=== PATIENT | male | born 1950 | race Caucasian/White ===

== ENCOUNTER 2018-03-02 16:24 | Emergency (ER) | payer OTHER ==
--- OUTSIDE RECORDS SUMMARY | 2018-03-02 16:26 | XMS REPORT | Clinical Summary ---
:1950 Author Organization [facility] Address [address] [place] [address] Care Team Providers Name Role Phone Botello, Uli Fernandez Primary Care Provider Jeff Denis Unavailable Allergies Active Allergy Reactions Severity Noted Date Comments Aspirin Hives 06/28/2010 Aspirin (Tartrazine Only) Hives 06/30/2016 Penicillins Hives, Swelling 06/28/2010 Medications Medication Sig Dispensed Refills Start Date End Date Status acetaminophen Take 500 mg by 0 Active (TYLENOL) 500 MG mouth every 4 tablet (four) hours as needed for Pain. arformoterol Take 2 mLs (15 mcg 120 mL 0 12/21/2016 Active (BROVANA) 15 mcg/2 total) by mL nebulizer nebulization 2 solution (two) times daily. rivaroxaban Take 1 tablet (15 30 tablet 0 12/21/2016 Active (XARELTO) 15 mg Tab mg total) by mouth tablet daily with dinner. rOPINIRole (REQUIP) Take 0.5 tablets 15 tablet 0 12/21/2016 Active 2 MG tablet (1 mg total) by mouth nightly. melatonin 5 mg Tab Take 1 tablet (5 30 tablet 0 12/21/2016 Active tablet mg total) by mouth nightly. pantoprazole Take 1 tablet (40 30 tablet 0 12/21/2016 Active (PROTONIX) 40 MG mg total) by mouth tablet daily. atorvastatin Take 1 tablet (80 30 tablet 0 12/21/2016 12/21/2017 (LIPITOR) 80 MG mg total) by mouth tablet nightly. budesonide Take 2 mLs (0.5 mg 120 mL 0 12/21/2016 12/21/2017 (PULMICORT) 0.5 total) by mg/2 mL nebulizer nebulization 2 solution (two) times daily. clopidogrel Take 1 tablet (75 30 tablet 0 12/21/2016 12/21/2017 (PLAVIX) 75 mg mg total) by mouth tablet daily. divalproex Take 1 tablet (500 30 tablet 0 12/21/2016 12/21/2017 (DEPAKOTE) 500 MG mg total) by mouth EC tablet 2 (two) times daily. levETIRAcetam Take 2 tablets 120 tablet 0 12/21/2016 12/21/2017 (KEPPRA) 750 MG (1,500 mg total) tablet by mouth 2 (two) times daily. gabapentin Take 1 capsule 90 capsule 0 12/21/2016 12/21/2017 (NEURONTIN) 300 MG (300 mg total) by capsule mouth 3 (three) times daily. senna-docusate Take 2 tablets by 60 tablet 0 12/21/2016 12/21/2017 (SENOKOT S) 8.6-50 mouth nightly. mg per tablet torsemide (DEMADEX) Take 1 tablet (20 30 tablet 0 12/21/2016 12/21/2017 20 MG tablet mg total) by mouth daily. Active Problems Problem Noted Date Transient alteration of awareness 12/12/2016 Altered mental status 12/07/2016 Ptosis, left 12/07/2016 COPD (chronic obstructive pulmonary disease) 12/07/2016 S/P CABG x 3 11/28/2016 Acute pulmonary insufficiency following thoracic surgery 11/28/2016 Postoperative anemia due to acute blood loss 11/28/2016 NSTEMI (non-ST elevated myocardial infarction) 11/27/2016 Paroxysmal atrial fibrillation 11/26/2016 Pulmonary embolism 11/26/2016 Left-sided muscle weakness 10/08/2016 Muscle cramps 10/08/2016 Tension type headache 10/08/2016 CVA (cerebral vascular accident) 10/06/2016 Seizure disorder 10/06/2016 History of atrial fibrillation 10/06/2016 Chronic anticoagulation 10/06/2016 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 Last Filed Vital Signs Not on file Plan of Treatment Not on file Results Not on fileafter 03/01/2017 Insurance Payer Benefit Plan / Group Subscriber ID Type Phone Address MEDICARE MEDICARE A B xxxxxxxxxx Medicare MEDICAID [place] xxxxxxxxx Medicaid (Home) [place] [address] Advance Directives For more information, please contact:[address] [phone] Code Status Date Activated Date Inactivated Comments Full Code 12/04/2016 5:19 PM 12/04/2016 5:20 PM This code status was determined by: Patient Full Code 12/04/2016 5:17 PM 12/04/2016 5:19 PM This code status was determined by: Patient Full Code 11/27/2016 6:03 PM 12/04/2016 5:17 PM This code status was determined by: Patient Full Code 11/27/2016 2:03 AM 11/27/2016 6:03 PM This code status was determined by: Patient Full Code 10/06/2016 4:45 PM 10/10/2016 5:03 PM This code status was determined by: Patient
--- OUTSIDE RECORDS SUMMARY | 2018-03-02 16:29 | XMS REPORT ---
:1950 Author Organization [facility] Address [address] [place] [address] Care Team Providers Name Role Phone MIKI NICHOLS Unavailable Unavailable CLARY BRAY Unavailable Unavailable AUGUSTIN DC Unavailable Unavailable MAXIMILIANO RUSSELL Unavailable Unavailable AUGUSTIN GUAMAN Unavailable Unavailable HENRY BULL Unavailable Unavailable Problems This patient has no known problems. Allergies, Adverse Reactions, Alerts This patient has no known allergies or adverse reactions. Medications This patient has no known medications. Results Test Description Test Time Test Comments Text Results Atomic Results Result Comments B-TYPE NATRIURETIC FACTOR (BNP) 2016-12-21 05:56:00 Test Item Value Reference Range Comments B-TYPE NATRIURETIC PEPTIDE (BEAKER) (test kagz=497) 136 pg/mL 0-100 COMPREHENSIVE METABOLIC [id number] 05:53:00 Test Item Value Reference Range Comments TOTAL PROTEIN (BEAKER) 6.7 gm/dL 6.0-8.3 (test keri=237) ALBUMIN (BEAKER) (test 3.1 g/dL 3.5-5.0 wbgi=6852) ALKALINE PHOSPHATASE 116 U/L 40-150 (BEAKER) (test lora=482) BILIRUBIN TOTAL (BEAKER) < mg/dL 0.2-1.2 (test ywkp=738) SODIUM (BEAKER) (test 141 meq/L 136-145 zvwy=296) POTASSIUM (BEAKER) (test 4.0 meq/L 3.5-5.1 lqnc=449) CHLORIDE (BEAKER) (test 107 meq/L 98-107 axcc=151) CO2 (BEAKER) (test 25 meq/L 22-29 erka=348) BLOOD UREA NITROGEN 9 mg/dL 7-21 (BEAKER) (test mreo=815) CREATININE (BEAKER) (test 0.58 mg/dL 0.57-1.25 fjeq=386) GLUCOSE RANDOM (BEAKER) 94 mg/dL 70-105 (test uorn=103) CALCIUM (BEAKER) (test 8.7 mg/dL 8.4-10.2 xkrt=863) AST (SGOT) (BEAKER) (test 67 U/L 5-34 xpbq=127) ALT (SGPT) (BEAKER) (test 88 U/L 6-55 ayps=329) EGFR (BEAKER) (test 139 mL/min/1.73 sq ESTIMATED GFR IS NOT ylng=5035) m ACCURATE CREATININE CLEARANCE IN PREDICTING GLOMERULAR FILTRATION RATE. ESTIMATED GFR IS NOT APPLICABLE FOR DIALYSIS PATIENTS. POCT-GLUCOSE [id number] 16:33:00 Test Item Value Reference Range Comments POC-GLUCOSE METER (BEAKER) 116 mg/dL 70-110 TESTED AT [address] (test tikg=3861) [place] [address] POCT-GLUCOSE [id number] 11:08:00 Test Item Value Reference Range Comments POC-GLUCOSE METER (BEAKER) 133 mg/dL 70-110 TESTED AT [address] (test sfaj=9246) [place] [address] POCT-GLUCOSE [id number] 06:11:00 Test Item Value Reference Range Comments POC-GLUCOSE METER (BEAKER) 105 mg/dL 70-110 TESTED AT [address] (test xqmk=9981) [place] [address] POCT-GLUCOSE [id number] 20:28:00 Test Item Value Reference Range Comments POC-GLUCOSE METER (BEAKER) 124 mg/dL 70-110 TESTED AT [address] (test eujs=8938) [place] [address] POCT-GLUCOSE [id number] 16:46:00 Test Item Value Reference Range Comments POC-GLUCOSE METER (BEAKER) 113 mg/dL 70-110 TESTED AT [address] (test plbs=2828) [place] [address] POCT-GLUCOSE [id number] 11:46:00 Test Item Value Reference Range Comments POC-GLUCOSE METER (BEAKER) 113 mg/dL 70-110 TESTED AT [address] (test xwdd=2752) [place] [address] URINE [id number] 09:54:00 Test Item Value Reference Range Comments CULTURE (BEAKER) (test KLEBSIELLA PNEUMONIAE >100,000 col/mL dnbn=0074) Klebsiella pneumoniae Amikacin (test code=1) Ampicillin + Sulbactam (test code=6) Aztreonam (test code=32) Cefepime (test code=51) Cefoxitin (test code=68) Ceftazidime (test code=27) Ceftriaxone (test code=52) Ertapenem (test code=38) Gentamicin (test code=18) Levofloxacin (test code=22) Meropenem (test code=34) Nitrofurantoin (test code=23) Piperacillin + Tazobactam (test code=29) Tetracycline (test code=2) Tobramycin (test code=25) Trimethoprim + Sulfamethoxazole (test code=47) POCT-GLUCOSE [id number] 06:46:00 Test Item Value Reference Range Comments POC-GLUCOSE METER (BEAKER) 111 mg/dL 70-110 TESTED AT [address] (test pohq=0468) [place] [id number] POCT-GLUCOSE [id number] 20:48:00 Test Item Value Reference Range Comments POC-GLUCOSE METER (BEAKER) 128 mg/dL 70-110 TESTED AT [address] (test rodl=3514) [place] [id number] POCT-GLUCOSE [id number] 16:00:00 Test Item Value Reference Range Comments POC-GLUCOSE METER (BEAKER) 127 mg/dL 70-110 TESTED AT [address] (test yifl=2666) [place] [id number] POCT-GLUCOSE [id number] 11:16:00 Test Item Value Reference Range Comments POC-GLUCOSE METER (BEAKER) 273 mg/dL 70-110 TESTED AT [address] (test lrsf=0234) [place] [id number] COMPREHENSIVE METABOLIC [id number] 06:44:00 Test Item Value Reference Range Comments TOTAL PROTEIN (BEAKER) 6.4 gm/dL 6.0-8.3 (test bwci=658) ALBUMIN (BEAKER) (test 2.9 g/dL 3.5-5.0 mfvy=0651) ALKALINE PHOSPHATASE 109 U/L 40-150 (BEAKER) (test ordg=376) BILIRUBIN TOTAL (BEAKER) < mg/dL 0.2-1.2 (test zlyr=057) SODIUM (BEAKER) (test 142 meq/L 136-145 ugwp=623) POTASSIUM (BEAKER) (test 4.1 meq/L 3.5-5.1 uisr=303) CHLORIDE (BEAKER) (test 107 meq/L 98-107 cgec=216) CO2 (BEAKER) (test 26 meq/L 22-29 zlow=590) BLOOD UREA NITROGEN 7 mg/dL 7-21 (BEAKER) (test gqzt=474) CREATININE (BEAKER) (test 0.56 mg/dL 0.57-1.25 riiq=009) GLUCOSE RANDOM (BEAKER) 103 mg/dL 70-105 (test ujup=533) CALCIUM (BEAKER) (test 8.7 mg/dL 8.4-10.2 ghfv=962) AST (SGOT) (BEAKER) (test 42 U/L 5-34 ottq=265) ALT (SGPT) (BEAKER) (test 32 U/L 6-55 inzr=559) EGFR (BEAKER) (test 145 mL/min/1.73 sq ESTIMATED GFR IS NOT qpat=2639) m ACCURATE CREATININE CLEARANCE IN PREDICTING GLOMERULAR FILTRATION RATE. ESTIMATED GFR IS NOT APPLICABLE FOR DIALYSIS PATIENTS. [id number] 06:27:00 Test Item Value Reference Range Comments PARTIAL THROMBOPLASTIN TIME (BEAKER) (test 38.5 seconds 22.5-36.0 mpak=988) PROTHROMBIN [id number] 06:26:00 Test Item Value Reference Range Comments PROTIME (BEAKER) (test rlyp=510) 16.3 seconds 11.7-14.7 INR (BEAKER) (test hegs=344) 1.3 <=5.9 RECOMMENDED COUMADIN/WARFARIN INR THERAPY RANGESSTANDARD DOSE: 2.0 - 3.0 Includes: PROPHYLAXIS forvenous thrombosis, systemic embolization; TREATMENT for venous thrombosis and/or pulmonary embolus.HIGH RISK: Target INR is 2.5-3.5 for patients with mechanical heart valves.CBC W/PLT COUNT & AUTO [id number] 06:25:00 Test Item Value Reference Range Comments WHITE BLOOD CELL COUNT (BEAKER) (test kgzz=132) 7.1 K/ L 3.5-10.5 RED BLOOD CELL COUNT (BEAKER) (test bfir=816) 2.90 M/ L 4.63-6.08 HEMOGLOBIN (BEAKER) (test pscu=665) 9.1 GM/DL 13.7-17.5 HEMATOCRIT (BEAKER) (test tsgh=149) 28.9 % 40.1-51.0 MEAN CORPUSCULAR VOLUME (BEAKER) (test seah=165) 99.7 fL 79.0-92.2 MEAN CORPUSCULAR HEMOGLOBIN (BEAKER) (test 31.4 pg 25.7-32.2 gcdz=460) MEAN CORPUSCULAR HEMOGLOBIN CONC (BEAKER) (test 31.5 GM/DL 32.3-36.5 pfue=613) RED CELL DISTRIBUTION WIDTH (BEAKER) (test 16.4 % 11.6-14.4 yvhm=050) PLATELET COUNT (BEAKER) (test erhk=058) 402 K/CU MM 150-450 MEAN PLATELET VOLUME (BEAKER) (test xwad=752) 9.2 fL 9.4-12.4 NUCLEATED RED BLOOD CELLS (BEAKER) (test 0 /100 WBC 0-0 ufzd=792) NEUTROPHILS RELATIVE PERCENT (BEAKER) (test 61 % kjsh=701) LYMPHOCYTES RELATIVE PERCENT (BEAKER) (test 21 % utgn=257) MONOCYTES RELATIVE PERCENT (BEAKER) (test 16 % kqob=188) EOSINOPHILS RELATIVE PERCENT (BEAKER) (test 2 % rlsm=447) BASOPHILS RELATIVE PERCENT (BEAKER) (test 0 % gepz=781) NEUTROPHILS ABSOLUTE COUNT (BEAKER) (test 4.30 K/ L 1.78-5.38 nyud=704) LYMPHOCYTES ABSOLUTE COUNT (BEAKER) (test 1.49 K/ L 1.32-3.57 bxmr=178) MONOCYTES ABSOLUTE COUNT (BEAKER) (test 1.10 K/ L 0.30-0.82 pvab=285) EOSINOPHILS ABSOLUTE COUNT (BEAKER) (test 0.15 K/ L 0.04-0.54 osqe=662) BASOPHILS ABSOLUTE COUNT (BEAKER) (test 0.02 K/ L 0.01-0.08 xeji=314) IMMATURE GRANULOCYTES-RELATIVE PERCENT (BEAKER) 0 % 0-1 (test ooqt=7862) POCT-GLUCOSE [id number] 06:22:00 Test Item Value Reference Range Comments POC-GLUCOSE METER (BEAKER) 131 mg/dL 70-110 TESTED AT [address] (test qyhs=8475) [place] [id number] URINALYSIS W/ [id number] 20:35:00 Test Item Value Reference Range Comments COLOR (BEAKER) (test ucgg=024) Yellow CLARITY (BEAKER) (test ttmm=487) Clear SPECIFIC GRAVITY UA (BEAKER) (test 1.006 1.001-1.035 zwst=386) PH UA (BEAKER) (test vfns=139) 6.5 5.0-8.0 PROTEIN UA (BEAKER) (test amwo=478) Negative Negative GLUCOSE UA (BEAKER) (test fver=514) Negative Negative KETONES UA (BEAKER) (test bzdt=773) Negative Negative BILIRUBIN UA (BEAKER) (test pjjg=450) Negative Negative BLOOD UA (BEAKER) (test slhu=293) Negative Negative NITRITE UA (BEAKER) (test euoh=128) Negative Negative LEUKOCYTE ESTERASE UA (BEAKER) (test Negative Negative pxmw=155) UROBILINOGEN UA (BEAKER) (test krhx=925) 0.2 mg/dL 0.2-1.0 RBC UA (BEAKER) (test zrti=198) 1 /HPF WBC UA (BEAKER) (test vbuu=114) 0 /HPF SOURCE(BEAKER) (test hbpl=8213) Urine, Clean Catch POCT-GLUCOSE [id number] 20:21:00 Test Item Value Reference Range Comments POC-GLUCOSE METER (BEAKER) 132 mg/dL 70-110 TESTED AT [address] (test rogq=7569) [place] [id number] POCT-GLUCOSE [id number] 16:17:00 Test Item Value Reference Range Comments POC-GLUCOSE METER (BEAKER) 101 mg/dL 70-110 TESTED AT [address] (test rokb=3098) [place] [id number] POCT-GLUCOSE [id number] 13:35:00 Test Item Value Reference Range Comments POC-GLUCOSE METER (BEAKER) 143 mg/dL 70-110 TESTED AT [address] (test gyof=0883) [place] [id number] BASIC METABOLIC [id number] 06:31:00 Test Item Value Reference Range Comments SODIUM (BEAKER) (test 137 meq/L 136-145 zhay=423) POTASSIUM (BEAKER) (test 4.2 meq/L 3.5-5.1 egqv=929) CHLORIDE (BEAKER) (test 104 meq/L 98-107 uyrh=666) CO2 (BEAKER) (test 26 meq/L 22-29 hzzk=568) BLOOD UREA NITROGEN 4 mg/dL 7-21 (BEAKER) (test ajic=477) CREATININE (BEAKER) (test 0.57 mg/dL 0.57-1.25 pvcv=770) GLUCOSE RANDOM (BEAKER) 97 mg/dL 70-105 (test eech=402) CALCIUM (BEAKER) (test 8.8 mg/dL 8.4-10.2 dmwz=891) EGFR (BEAKER) (test 142 mL/min/1.73 sq m ESTIMATED GFR IS NOT wpcd=7706) ACCURATE CREATININE CLEARANCE IN PREDICTING GLOMERULAR FILTRATION RATE. ESTIMATED GFR IS NOT APPLICABLE FOR DIALYSIS PATIENTS. BASIC METABOLIC [id number] 05:41:00 Test Item Value Reference Range Comments SODIUM (BEAKER) (test 141 meq/L 136-145 bffc=011) POTASSIUM (BEAKER) (test 3.9 meq/L 3.5-5.1 bnjz=467) CHLORIDE (BEAKER) (test 107 meq/L 98-107 jusb=021) CO2 (BEAKER) (test 24 meq/L 22-29 nkxj=813) BLOOD UREA NITROGEN 4 mg/dL 7-21 (BEAKER) (test mwqc=109) CREATININE (BEAKER) (test 0.59 mg/dL 0.57-1.25 yaaf=516) GLUCOSE RANDOM (BEAKER) 100 mg/dL 70-105 (test aaex=158) CALCIUM (BEAKER) (test 8.7 mg/dL 8.4-10.2 yfgy=422) EGFR (BEAKER) (test 137 mL/min/1.73 sq m ESTIMATED GFR IS NOT zznl=0874) ACCURATE CREATININE CLEARANCE IN PREDICTING GLOMERULAR FILTRATION RATE. ESTIMATED GFR IS NOT APPLICABLE FOR DIALYSIS PATIENTS. CBC (HEMOGRAM ONLY)2016-12-13 05:18:00 Test Item Value Reference Range Comments WHITE BLOOD CELL COUNT (BEAKER) (test hfad=639) 8.5 K/ L 3.5-10.5 RED BLOOD CELL COUNT (BEAKER) (test etzb=372) 2.81 M/ L 4.63-6.08 HEMOGLOBIN (BEAKER) (test btpa=300) 9.0 GM/DL 13.7-17.5 HEMATOCRIT (BEAKER) (test sdqt=991) 27.9 % 40.1-51.0 MEAN CORPUSCULAR VOLUME (BEAKER) (test pmsd=868) 99.3 fL 79.0-92.2 MEAN CORPUSCULAR HEMOGLOBIN (BEAKER) (test 32.0 pg 25.7-32.2 jjzy=942) MEAN CORPUSCULAR HEMOGLOBIN CONC (BEAKER) (test 32.3 GM/DL 32.3-36.5 cflj=726) RED CELL DISTRIBUTION WIDTH (BEAKER) (test 17.0 % 11.6-14.4 pyrb=358) PLATELET COUNT (BEAKER) (test ezag=750) 473 K/CU MM 150-450 MEAN PLATELET VOLUME (BEAKER) (test edew=217) 9.3 fL 9.4-12.4 NUCLEATED RED BLOOD CELLS (BEAKER) (test 0 /100 WBC 0-0 udtr=072) VITAMIN [id number] 06:04:00 Test Item Value Reference Range Comments VITAMIN B12 (BEAKER) (test kikj=660) 619 pg/mL 213-816 [id number] 06:04:00 Test Item Value Reference Range Comments FERRITIN (BEAKER) (test sdxe=532) 335 ng/mL 5-275 Effective 03/02/2014: Reference Range ChangeNew: Male 5-275 Previous: Male 22-322 Female 5-275 Female 10-291FOLATE, [id number] 06: 04:00 Test Item Value Reference Range Comments FOLATE (BEAKER) (test ghtj=216) 4.9 ng/mL >=7.0 Effective 03/02/2014: Folate Reference Range ChangeNew: >=7.0 Previous: & gt;=5.4BASIC METABOLIC [id number] 05:47:00 Test Item Value Reference Range Comments SODIUM (BEAKER) (test 135 meq/L 136-145 gesr=639) POTASSIUM (BEAKER) (test 4.1 meq/L 3.5-5.1 lueo=377) CHLORIDE (BEAKER) (test 103 meq/L 98-107 kpcy=555) CO2 (BEAKER) (test 24 meq/L 22-29 xtif=805) BLOOD UREA NITROGEN 5 mg/dL 7-21 (BEAKER) (test nybs=352) CREATININE (BEAKER) (test 0.56 mg/dL 0.57-1.25 fyeh=067) GLUCOSE RANDOM (BEAKER) 98 mg/dL 70-105 (test hlkf=715) CALCIUM (BEAKER) (test 8.5 mg/dL 8.4-10.2 iqmb=574) EGFR (BEAKER) (test 145 mL/min/1.73 sq m ESTIMATED GFR IS NOT cvwe=6145) ACCURATE CREATININE CLEARANCE IN PREDICTING GLOMERULAR FILTRATION RATE. ESTIMATED GFR IS NOT APPLICABLE FOR DIALYSIS PATIENTS. IRON, TIBC, % SAT. (WITHOUT FERRITIN)2016-12-12 05:29:00 Test Item Value Reference Range Comments IRON (BEAKER) (test gfic=088) 25 ug/dL 40-160 TOTAL IRON BINDING CAPACITY (BEAKER) (test 238 ug/dL 250-450 trfz=210) IRON % SATURATION (2) (BEAKER) (test deev=4763) 11 % 20-55 CBC (HEMOGRAM ONLY)2016-12-12 05:09:00 Test Item Value Reference Range Comments WHITE BLOOD CELL COUNT (BEAKER) (test ufjq=846) 8.6 K/ L 3.5-10.5 RED BLOOD CELL COUNT (BEAKER) (test bbjs=134) 2.74 M/ L 4.63-6.08 HEMOGLOBIN (BEAKER) (test bxeb=594) 8.9 GM/DL 13.7-17.5 HEMATOCRIT (BEAKER) (test ibrs=805) 27.3 % 40.1-51.0 MEAN CORPUSCULAR VOLUME (BEAKER) (test gnsj=747) 99.6 fL 79.0-92.2 MEAN CORPUSCULAR HEMOGLOBIN (BEAKER) (test 32.5 pg 25.7-32.2 rfji=517) MEAN CORPUSCULAR HEMOGLOBIN CONC (BEAKER) (test 32.6 GM/DL 32.3-36.5 apha=743) RED CELL DISTRIBUTION WIDTH (BEAKER) (test 17.2 % 11.6-14.4 nrep=385) PLATELET COUNT (BEAKER) (test yndl=516) 400 K/CU MM 150-450 MEAN PLATELET VOLUME (BEAKER) (test iiai=393) 9.2 fL 9.4-12.4 NUCLEATED RED BLOOD CELLS (BEAKER) (test 0 /100 WBC 0-0 vvzx=334) BASIC METABOLIC [id number] 05:53:00 Test Item Value Reference Range Comments SODIUM (BEAKER) (test 138 meq/L 136-145 ghio=781) POTASSIUM (BEAKER) (test 4.0 meq/L 3.5-5.1 Specimen slightly qbjv=169) hemolyzed CHLORIDE (BEAKER) (test 105 meq/L 98-107 sxyk=214) CO2 (BEAKER) (test 24 meq/L 22-29 sevv=131) BLOOD UREA NITROGEN 4 mg/dL 7-21 (BEAKER) (test qcuw=527) CREATININE (BEAKER) (test 0.56 mg/dL 0.57-1.25 Specimen slightly xotf=296) hemolyzed GLUCOSE RANDOM (BEAKER) 97 mg/dL 70-105 (test kdib=296) CALCIUM (BEAKER) (test 8.4 mg/dL 8.4-10.2 dvkg=319) EGFR (BEAKER) (test 145 mL/min/1.73 sq m ESTIMATED GFR IS NOT tpqv=4140) ACCURATE CREATININE CLEARANCE IN PREDICTING GLOMERULAR FILTRATION RATE. ESTIMATED GFR IS NOT APPLICABLE FOR DIALYSIS PATIENTS. CREATINE KINASE (CK)2016-12-11 05:53:00 Test Item Value Reference Range Comments CREATINE KINASE TOTAL (BEAKER) (test ztme=394) 29 U/L 29-200 CBC (HEMOGRAM ONLY)2016-12-11 05:34:00 Test Item Value Reference Range Comments WHITE BLOOD CELL COUNT (BEAKER) (test moes=664) 8.0 K/ L 3.5-10.5 RED BLOOD CELL COUNT (BEAKER) (test mjql=533) 2.70 M/ L 4.63-6.08 HEMOGLOBIN (BEAKER) (test dknm=010) 8.6 GM/DL 13.7-17.5 HEMATOCRIT (BEAKER) (test niir=432) 27.0 % 40.1-51.0 MEAN CORPUSCULAR VOLUME (BEAKER) (test ohxq=079) 100.0 fL 79.0-92.2 MEAN CORPUSCULAR HEMOGLOBIN (BEAKER) (test 31.9 pg 25.7-32.2 lsbr=736) MEAN CORPUSCULAR HEMOGLOBIN CONC (BEAKER) (test 31.9 GM/DL 32.3-36.5 twnp=293) RED CELL DISTRIBUTION WIDTH (BEAKER) (test 17.2 % 11.6-14.4 qzde=811) PLATELET COUNT (BEAKER) (test cvem=453) 406 K/CU MM 150-450 MEAN PLATELET VOLUME (BEAKER) (test mrdo=225) 9.4 fL 9.4-12.4 NUCLEATED RED BLOOD CELLS (BEAKER) (test 0 /100 WBC 0-0 tmvq=326) [id number] 22:53:00 Test Item Value Reference Range Comments ACTIVATED CLOTTING TIME 153 sec TESTED AT [place] [id number] [facility] (BEAKER) (test ielu=072) [place] [address] [id number] 22:35:00 Test Item Value Reference Range Comments ACTIVATED CLOTTING TIME 202 sec TESTED AT [address] (BEAKER) (test drwl=428) [place] [address] [id number] 22:04:00 Test Item Value Reference Range Comments PARTIAL THROMBOPLASTIN TIME (BEAKER) (test 45.2 seconds 22.5-36.0 tygn=851) Prior to initiating heparinCBC (HEMOGRAM ONLY)2016-12-10 21:56:00 Test Item Value Reference Range Comments WHITE BLOOD CELL COUNT (BEAKER) (test odpr=492) 9.5 K/ L 3.5-10.5 RED BLOOD CELL COUNT (BEAKER) (test zzsw=616) 2.79 M/ L 4.63-6.08 HEMOGLOBIN (BEAKER) (test rdil=687) 9.0 GM/DL 13.7-17.5 HEMATOCRIT (BEAKER) (test euzs=781) 27.6 % 40.1-51.0 MEAN CORPUSCULAR VOLUME (BEAKER) (test palx=103) 98.9 fL 79.0-92.2 MEAN CORPUSCULAR HEMOGLOBIN (BEAKER) (test 32.3 pg 25.7-32.2 ftoj=052) MEAN CORPUSCULAR HEMOGLOBIN CONC (BEAKER) (test 32.6 GM/DL 32.3-36.5 ttfb=873) RED CELL DISTRIBUTION WIDTH (BEAKER) (test 17.3 % 11.6-14.4 ipoa=498) PLATELET COUNT (BEAKER) (test kaxp=531) 429 K/CU MM 150-450 MEAN PLATELET VOLUME (BEAKER) (test guxo=883) 9.8 fL 9.4-12.4 NUCLEATED RED BLOOD CELLS (BEAKER) (test 0 /100 WBC 0-0 uevn=201) BASIC METABOLIC [id number] 08:43:00 Test Item Value Reference Range Comments SODIUM (BEAKER) (test 139 meq/L 136-145 oinm=162) POTASSIUM (BEAKER) (test 4.0 meq/L 3.5-5.1 iucd=210) CHLORIDE (BEAKER) (test 104 meq/L 98-107 ipib=487) CO2 (BEAKER) (test 24 meq/L 22-29 hovj=999) BLOOD UREA NITROGEN 4 mg/dL 7-21 (BEAKER) (test aikw=027) CREATININE (BEAKER) (test 0.58 mg/dL 0.57-1.25 irff=154) GLUCOSE RANDOM (BEAKER) 95 mg/dL 70-105 (test uzlw=472) CALCIUM (BEAKER) (test 8.7 mg/dL 8.4-10.2 xaqa=460) EGFR (BEAKER) (test 139 mL/min/1.73 sq m ESTIMATED GFR IS NOT lrrp=3662) ACCURATE CREATININE CLEARANCE IN PREDICTING GLOMERULAR FILTRATION RATE. ESTIMATED GFR IS NOT APPLICABLE FOR DIALYSIS PATIENTS. CBC (HEMOGRAM ONLY)2016-12-10 08:03:00 Test Item Value Reference Range Comments WHITE BLOOD CELL COUNT (BEAKER) (test fxjt=005) 8.7 K/ L 3.5-10.5 RED BLOOD CELL COUNT (BEAKER) (test vfco=936) 2.80 M/ L 4.63-6.08 HEMOGLOBIN (BEAKER) (test lzxp=865) 9.2 GM/DL 13.7-17.5 HEMATOCRIT (BEAKER) (test mhvi=760) 27.7 % 40.1-51.0 MEAN CORPUSCULAR VOLUME (BEAKER) (test aqhi=824) 98.9 fL 79.0-92.2 MEAN CORPUSCULAR HEMOGLOBIN (BEAKER) (test 32.9 pg 25.7-32.2 qljv=594) MEAN CORPUSCULAR HEMOGLOBIN CONC (BEAKER) (test 33.2 GM/DL 32.3-36.5 edjv=570) RED CELL DISTRIBUTION WIDTH (BEAKER) (test 17.2 % 11.6-14.4 dztb=015) PLATELET COUNT (BEAKER) (test fhhl=530) 509 K/CU MM 150-450 MEAN PLATELET VOLUME (BEAKER) (test awmi=057) 9.3 fL 9.4-12.4 NUCLEATED RED BLOOD CELLS (BEAKER) (test 0 /100 WBC 0-0 hcay=329) BASIC METABOLIC [id number] 06:44:00 Test Item Value Reference Range Comments SODIUM (BEAKER) (test 137 meq/L 136-145 elya=356) POTASSIUM (BEAKER) (test 4.6 meq/L 3.5-5.1 Specimen slightly ezhf=950) hemolyzed CHLORIDE (BEAKER) (test 106 meq/L 98-107 xcvl=439) CO2 (BEAKER) (test 18 meq/L 22-29 hxdy=190) BLOOD UREA NITROGEN 5 mg/dL 7-21 (BEAKER) (test fhhd=078) CREATININE (BEAKER) (test 0.60 mg/dL 0.57-1.25 Specimen slightly orun=486) hemolyzed GLUCOSE RANDOM (BEAKER) 86 mg/dL 70-105 (test hgvu=136) CALCIUM (BEAKER) (test 8.6 mg/dL 8.4-10.2 emqj=030) EGFR (BEAKER) (test 134 mL/min/1.73 sq m ESTIMATED GFR IS NOT qcto=6519) ACCURATE CREATININE CLEARANCE IN PREDICTING GLOMERULAR FILTRATION RATE. ESTIMATED GFR IS NOT APPLICABLE FOR DIALYSIS PATIENTS. CBC W/PLT COUNT & AUTO [id number] 21:33:00 Test Item Value Reference Range Comments WHITE BLOOD CELL COUNT (BEAKER) (test rdnx=134) 8.3 K/ L 3.5-10.5 RED BLOOD CELL COUNT (BEAKER) (test gspe=178) 3.00 M/ L 4.63-6.08 HEMOGLOBIN (BEAKER) (test anvg=379) 9.6 GM/DL 13.7-17.5 HEMATOCRIT (BEAKER) (test yern=118) 29.5 % 40.1-51.0 MEAN CORPUSCULAR VOLUME (BEAKER) (test yrcx=557) 98.3 fL 79.0-92.2 MEAN CORPUSCULAR HEMOGLOBIN (BEAKER) (test 32.0 pg 25.7-32.2 tlmn=660) MEAN CORPUSCULAR HEMOGLOBIN CONC (BEAKER) (test 32.5 GM/DL 32.3-36.5 iyvs=396) RED CELL DISTRIBUTION WIDTH (BEAKER) (test 17.3 % 11.6-14.4 xzhx=469) PLATELET COUNT (BEAKER) (test fvcd=097) 434 K/CU MM 150-450 MEAN PLATELET VOLUME (BEAKER) (test fuwq=217) 9.4 fL 9.4-12.4 NUCLEATED RED BLOOD CELLS (BEAKER) (test 0 /100 WBC 0-0 rajn=232) NEUTROPHILS RELATIVE PERCENT (BEAKER) (test 54 % bkmk=072) LYMPHOCYTES RELATIVE PERCENT (BEAKER) (test 27 % kkoc=695) MONOCYTES RELATIVE PERCENT (BEAKER) (test 17 % kyjz=773) EOSINOPHILS RELATIVE PERCENT (BEAKER) (test 2 % dqri=991) BASOPHILS RELATIVE PERCENT (BEAKER) (test 0 % ivft=999) NEUTROPHILS ABSOLUTE COUNT (BEAKER) (test 4.46 K/ L 1.78-5.38 fckd=194) LYMPHOCYTES ABSOLUTE COUNT (BEAKER) (test 2.24 K/ L 1.32-3.57 hdoo=862) MONOCYTES ABSOLUTE COUNT (BEAKER) (test 1.38 K/ L 0.30-0.82 nzti=768) EOSINOPHILS ABSOLUTE COUNT (BEAKER) (test 0.17 K/ L 0.04-0.54 dzva=694) BASOPHILS ABSOLUTE COUNT (BEAKER) (test 0.02 K/ L 0.01-0.08 kfgo=058) IMMATURE GRANULOCYTES-RELATIVE PERCENT (BEAKER) 1 % 0-1 (test oyqn=1661) [id number] 07:21:00 Test Item Value Reference Range Comments PHOSPHORUS (BEAKER) (test ieyn=487) 3.6 mg/dL 2.3-4.7 [id number] 07:21:00 Test Item Value Reference Range Comments MAGNESIUM (BEAKER) (test ykgr=711) 1.9 mg/dL 1.6-2.6 COMPREHENSIVE METABOLIC [id number] 07:21:00 Test Item Value Reference Range Comments TOTAL PROTEIN (BEAKER) 6.2 gm/dL 6.0-8.3 (test hlpu=212) ALBUMIN (BEAKER) (test 3.0 g/dL 3.5-5.0 icfw=2702) ALKALINE PHOSPHATASE 95 U/L 40-150 (BEAKER) (test pvuw=266) BILIRUBIN TOTAL (BEAKER) 0.3 mg/dL 0.2-1.2 (test mxod=016) SODIUM (BEAKER) (test 137 meq/L 136-145 rmtt=934) POTASSIUM (BEAKER) (test 3.9 meq/L 3.5-5.1 waas=818) CHLORIDE (BEAKER) (test 105 meq/L 98-107 puhq=435) CO2 (BEAKER) (test 23 meq/L 22-29 zkpe=527) BLOOD UREA NITROGEN 6 mg/dL 7-21 (BEAKER) (test njzx=605) CREATININE (BEAKER) (test 0.57 mg/dL 0.57-1.25 olhb=841) GLUCOSE RANDOM (BEAKER) 89 mg/dL 70-105 (test ajtj=135) CALCIUM (BEAKER) (test 8.3 mg/dL 8.4-10.2 afwt=018) AST (SGOT) (BEAKER) (test 25 U/L 5-34 skfl=191) ALT (SGPT) (BEAKER) (test 14 U/L 6-55 ldrq=803) EGFR (BEAKER) (test 142 mL/min/1.73 sq ESTIMATED GFR IS NOT idlh=1738) m ACCURATE CREATININE CLEARANCE IN PREDICTING GLOMERULAR FILTRATION RATE. ESTIMATED GFR IS NOT APPLICABLE FOR DIALYSIS PATIENTS. CBC (HEMOGRAM ONLY)2016-12-08 06:35:00 Test Item Value Reference Range Comments WHITE BLOOD CELL COUNT (BEAKER) (test jyrb=176) 7.9 K/ L 3.5-10.5 RED BLOOD CELL COUNT (BEAKER) (test fdct=856) 2.92 M/ L 4.63-6.08 HEMOGLOBIN (BEAKER) (test ogan=828) 9.2 GM/DL 13.7-17.5 HEMATOCRIT (BEAKER) (test ixvs=862) 28.4 % 40.1-51.0 MEAN CORPUSCULAR VOLUME (BEAKER) (test wlkz=918) 97.3 fL 79.0-92.2 MEAN CORPUSCULAR HEMOGLOBIN (BEAKER) (test 31.5 pg 25.7-32.2 pizn=895) MEAN CORPUSCULAR HEMOGLOBIN CONC (BEAKER) (test 32.4 GM/DL 32.3-36.5 ijpx=796) RED CELL DISTRIBUTION WIDTH (BEAKER) (test 17.0 % 11.6-14.4 yjzg=504) PLATELET COUNT (BEAKER) (test zdmu=154) 415 K/CU MM 150-450 MEAN PLATELET VOLUME (BEAKER) (test vxeu=390) 9.3 fL 9.4-12.4 NUCLEATED RED BLOOD CELLS (BEAKER) (test 0 /100 WBC 0-0 gwny=343) CBC (HEMOGRAM ONLY)2016-12-07 06:08:00 Test Item Value Reference Range Comments WHITE BLOOD CELL COUNT (BEAKER) (test khxr=614) 7.7 K/ L 3.5-10.5 RED BLOOD CELL COUNT (BEAKER) (test dgkz=657) 2.85 M/ L 4.63-6.08 HEMOGLOBIN (BEAKER) (test engt=075) 9.0 GM/DL 13.7-17.5 HEMATOCRIT (BEAKER) (test qhqm=981) 27.8 % 40.1-51.0 MEAN CORPUSCULAR VOLUME (BEAKER) (test orcu=995) 97.5 fL 79.0-92.2 MEAN CORPUSCULAR HEMOGLOBIN (BEAKER) (test 31.6 pg 25.7-32.2 szes=002) MEAN CORPUSCULAR HEMOGLOBIN CONC (BEAKER) (test 32.4 GM/DL 32.3-36.5 ibbk=929) RED CELL DISTRIBUTION WIDTH (BEAKER) (test 16.5 % 11.6-14.4 rnpu=863) PLATELET COUNT (BEAKER) (test syge=945) 399 K/CU MM 150-450 MEAN PLATELET VOLUME (BEAKER) (test fkiv=320) 9.5 fL 9.4-12.4 NUCLEATED RED BLOOD CELLS (BEAKER) (test 0 /100 WBC 0-0 qchu=208) PHENYTOIN LEVEL, TOTAL AND [id number] 01:14:00 Test Item Value Reference Range Comments PHENYTOIN (DILANTIN) (BEAKER) (test vtec=572) 22.9 ug/mL 10.0-20.0 PHENYTOIN FREE (BEAKER) (test lrjq=372) 3.51 mcg/ml 1.00-2.00 VALPROIC ACID LEVEL, [id number] 20:49:00 Test Item Value Reference Range Comments VALPROIC ACID TOTAL (BEAKER) (test iwmv=107) 33 ug/mL 50-100 Therapeutic range for some clinical conditions may be >100 ug/mLPOCT-GLUCOSE [id number] 17:10:00 Test Item Value Reference Range Comments POC-GLUCOSE METER (BEAKER) 108 mg/dL 70-110 [facility]ED [facility] [facility] [address] [facility] (test akkb=0215) [facility] [address] PHENYTOIN LEVEL, [id number] 12:29:00 Test Item Value Reference Range Comments PHENYTOIN (DILANTIN) (BEAKER) (test aftt=050) 16.3 ug/mL 10.0-20.0 CREATINE KINASE (CK), TOTAL AND [id number] 12:26:00 Test Item Value Reference Range Comments CREATINE KINASE TOTAL (BEAKER) (test gmzg=602) 47 U/L 29-200 CREATINE KINASE-MB (BEAKER) (test tsja=406) 1.1 ng/mL 0.0-6.6 CREATINE KINASE-MB INDEX (BEAKER) (test qswv=777) 2.3 % Effective 03/02/2014: CK-MB Reference Range ChangeNew: 0.0-6.6 Previous: 0.0- 4.9CK-MB Reference Range:<6.7 Normal6.7-10.0 Borderline>10.0 AbnormalTROPONIN [id number] 12:26:00 Test Item Value Reference Range Comments TROPONIN I (BEAKER) (test xxjd=230) 0.11 ng/mL 0.00-0.03 Effective 03/02/2014: Reference Range ChangeNew: 0.00-0.03 Previous 0.00- 0.15Troponin I (TnI) levels must be interpreted in the context of the presenting symptoms and the clinical findings. Elevated TnI levels indicate myocardial damage, but are not specific for ischemic heart disease. Elevated TnI levels are seen in patients with other cardiac conditions (including myocarditis and congestive heartfailure), and slight TnI elevations occur in patients with other conditions, including sepsis, renalfailure, acidosis, acute neurological disease, and persistent tachyarrhythmia.[id number] 12:17: 00 Test Item Value Reference Range Comments MAGNESIUM (BEAKER) (test tged=686) 2.0 mg/dL 1.6-2.6 COMPREHENSIVE METABOLIC [id number] 12:17:00 Test Item Value Reference Range Comments TOTAL PROTEIN (BEAKER) 6.2 gm/dL 6.0-8.3 (test kazu=990) ALBUMIN (BEAKER) (test 3.0 g/dL 3.5-5.0 prnk=6634) ALKALINE PHOSPHATASE 101 U/L 40-150 (BEAKER) (test idgm=850) BILIRUBIN TOTAL (BEAKER) 0.3 mg/dL 0.2-1.2 (test lfpx=164) SODIUM (BEAKER) (test 140 meq/L 136-145 ukzd=013) POTASSIUM (BEAKER) (test 4.6 meq/L 3.5-5.1 oupv=586) CHLORIDE (BEAKER) (test 107 meq/L 98-107 zbek=311) CO2 (BEAKER) (test 24 meq/L 22-29 sroz=963) BLOOD UREA NITROGEN 5 mg/dL 7-21 (BEAKER) (test rcuy=015) CREATININE (BEAKER) (test 0.62 mg/dL 0.57-1.25 patr=793) GLUCOSE RANDOM (BEAKER) 111 mg/dL 70-105 (test rnhm=869) CALCIUM (BEAKER) (test 8.6 mg/dL 8.4-10.2 rxsn=754) AST (SGOT) (BEAKER) (test 23 U/L 5-34 gthe=204) ALT (SGPT) (BEAKER) (test 15 U/L 6-55 jagg=987) EGFR (BEAKER) (test 129 mL/min/1.73 sq ESTIMATED GFR IS NOT ospy=0861) m ACCURATE CREATININE CLEARANCE IN PREDICTING GLOMERULAR FILTRATION RATE. ESTIMATED GFR IS NOT APPLICABLE FOR DIALYSIS PATIENTS. CBC W/PLT COUNT & AUTO [id number] 11:55:00 Test Item Value Reference Range Comments WHITE BLOOD CELL COUNT (BEAKER) (test nlrm=553) 7.5 K/ L 3.5-10.5 RED BLOOD CELL COUNT (BEAKER) (test wivd=921) 3.01 M/ L 4.63-6.08 HEMOGLOBIN (BEAKER) (test hyyz=377) 9.5 GM/DL 13.7-17.5 HEMATOCRIT (BEAKER) (test ivli=656) 29.3 % 40.1-51.0 MEAN CORPUSCULAR VOLUME (BEAKER) (test zaum=900) 97.3 fL 79.0-92.2 MEAN CORPUSCULAR HEMOGLOBIN (BEAKER) (test 31.6 pg 25.7-32.2 jstv=868) MEAN CORPUSCULAR HEMOGLOBIN CONC (BEAKER) (test 32.4 GM/DL 32.3-36.5 lryc=531) RED CELL DISTRIBUTION WIDTH (BEAKER) (test 16.4 % 11.6-14.4 rngi=736) PLATELET COUNT (BEAKER) (test sxwu=065) 396 K/CU MM 150-450 MEAN PLATELET VOLUME (BEAKER) (test orgh=850) 9.6 fL 9.4-12.4 NUCLEATED RED BLOOD CELLS (BEAKER) (test 0 /100 WBC 0-0 djgh=355) NEUTROPHILS RELATIVE PERCENT (BEAKER) (test 65 % qkgg=521) LYMPHOCYTES RELATIVE PERCENT (BEAKER) (test 19 % kwbr=357) MONOCYTES RELATIVE PERCENT (BEAKER) (test 13 % dprr=405) EOSINOPHILS RELATIVE PERCENT (BEAKER) (test 2 % lbrm=455) BASOPHILS RELATIVE PERCENT (BEAKER) (test 0 % thpe=207) NEUTROPHILS ABSOLUTE COUNT (BEAKER) (test 4.91 K/ L 1.78-5.38 zxwf=073) LYMPHOCYTES ABSOLUTE COUNT (BEAKER) (test 1.43 K/ L 1.32-3.57 uwzi=222) MONOCYTES ABSOLUTE COUNT (BEAKER) (test 0.96 K/ L 0.30-0.82 nios=945) EOSINOPHILS ABSOLUTE COUNT (BEAKER) (test 0.11 K/ L 0.04-0.54 rfta=976) BASOPHILS ABSOLUTE COUNT (BEAKER) (test 0.02 K/ L 0.01-0.08 ayub=240) IMMATURE GRANULOCYTES-RELATIVE PERCENT (BEAKER) 1 % 0-1 (test koky=9170) URINE [id number] 11:55:00 Test Item Value Reference Range Comments CULTURE (BEAKER) (test stzy=8504) No growth BLOOD GAS, [id number] 10:28:00 Test Item Value Reference Range Comments PH ARTERIAL (BEAKER) (test xhtl=566) 7.51 7.35-7.45 PCO2 ARTERIAL (BEAKER) (test xhep=542) 32 mmHg 35-45 PO2 ARTERIAL (BEAKER) (test wxuy=757) 118 mmHg 80-90 O2 SATURATION ARTERIAL (BEAKER) (test opxc=081) 98.7 % 96.0-97.0 HCO3 ARTERIAL (BEAKER) (test ykii=244) 25 mmol/L 21-29 BASE EXCESS ARTERIAL (BEAKER) (test yzrz=878) 2.1 mmol/L -2.0-3.0 PATIENT TEMPERATURE (BEAKER) (test ymzi=2746) 36.6 C FIO2 (BEAKER) (test kbzk=3503) 32.0 % POCT-GLUCOSE [id number] 09:53:00 Test Item Value Reference Range Comments POC-GLUCOSE METER (BEAKER) 184 mg/dL 70-110 TESTED AT [address] (test xnsw=9533) [facility] [address] TROPONIN [id number] 22:44:00 Test Item Value Reference Range Comments TROPONIN I (BEAKER) (test tqff=789) 0.14 ng/mL 0.00-0.03 Effective 03/02/2014: Reference Range ChangeNew: 0.00-0.03 Previous 0.00- 0.15Troponin I (TnI) levels must be interpreted in the context of the presenting symptoms and the clinical findings. Elevated TnI levels indicate myocardial damage, but are not specific for ischemic heart disease. Elevated TnI levels are seen in patients with other cardiac conditions (including myocarditis and congestive heartfailure), and slight TnI elevations occur in patients with other conditions, including sepsis, renalfailure, acidosis, acute neurological disease, and persistent tachyarrhythmia.TROPONIN [id number] 15:17: 00 Test Item Value Reference Range Comments TROPONIN I (BEAKER) (test ariu=679) 0.14 ng/mL 0.00-0.03 Effective 03/02/2014: Reference Range ChangeNew: 0.00-0.03 Previous 0.00- 0.15Troponin I (TnI) levels must be interpreted in the context of the presenting symptoms and the clinical findings. Elevated TnI levels indicate myocardial damage, but are not specific for ischemic heart disease. Elevated TnI levels are seen in patients with other cardiac conditions (including myocarditis and congestive heartfailure), and slight TnI elevations occur in patients with other conditions, including sepsis, renalfailure, acidosis, acute neurological disease, and persistent tachyarrhythmia.CBC W/PLT COUNT & AUTO [id number] 14:44:00 Test Item Value Reference Range Comments WHITE BLOOD CELL COUNT (BEAKER) (test oyko=397) 7.7 K/ L 3.5-10.5 RED BLOOD CELL COUNT (BEAKER) (test mpdv=869) 2.98 M/ L 4.63-6.08 HEMOGLOBIN (BEAKER) (test xcui=973) 9.3 GM/DL 13.7-17.5 HEMATOCRIT (BEAKER) (test vubc=086) 28.7 % 40.1-51.0 MEAN CORPUSCULAR VOLUME (BEAKER) (test goga=587) 96.3 fL 79.0-92.2 MEAN CORPUSCULAR HEMOGLOBIN (BEAKER) (test 31.2 pg 25.7-32.2 udob=601) MEAN CORPUSCULAR HEMOGLOBIN CONC (BEAKER) (test 32.4 GM/DL 32.3-36.5 asfl=520) RED CELL DISTRIBUTION WIDTH (BEAKER) (test 15.7 % 11.6-14.4 teoq=798) PLATELET COUNT (BEAKER) (test eprh=825) 356 K/CU MM 150-450 MEAN PLATELET VOLUME (BEAKER) (test zzox=328) 10.1 fL 9.4-12.4 NUCLEATED RED BLOOD CELLS (BEAKER) (test 1 /100 WBC 0-0 ndmy=398) NEUTROPHILS RELATIVE PERCENT (BEAKER) (test 58 % ktlz=206) LYMPHOCYTES RELATIVE PERCENT (BEAKER) (test 24 % jsrk=464) MONOCYTES RELATIVE PERCENT (BEAKER) (test 16 % rdxk=891) EOSINOPHILS RELATIVE PERCENT (BEAKER) (test 1 % kaep=100) BASOPHILS RELATIVE PERCENT (BEAKER) (test 0 % bptx=457) NEUTROPHILS ABSOLUTE COUNT (BEAKER) (test 4.43 K/ L 1.78-5.38 xumi=281) LYMPHOCYTES ABSOLUTE COUNT (BEAKER) (test 1.85 K/ L 1.32-3.57 zonw=836) MONOCYTES ABSOLUTE COUNT (BEAKER) (test 1.22 K/ L 0.30-0.82 omyv=413) EOSINOPHILS ABSOLUTE COUNT (BEAKER) (test 0.11 K/ L 0.04-0.54 wwya=513) BASOPHILS ABSOLUTE COUNT (BEAKER) (test 0.02 K/ L 0.01-0.08 pceu=638) IMMATURE GRANULOCYTES-RELATIVE PERCENT (BEAKER) 1 % 0-1 (test kvhj=0653) (MANUAL DIFFERENTIAL)2016-12-05 14:44:00 Test Item Value Reference Range Comments TOTAL COUNTED (BEAKER) (test aeor=9294) WBC MORPHOLOGY (BEAKER) (test dgvw=138) Normal PLT MORPHOLOGY (BEAKER) (test ufyg=646) Normal RBC MORPHOLOGY (BEAKER) (test tmyv=040) Normal [id number] 07:06:00 Test Item Value Reference Range Comments PHOSPHORUS (BEAKER) (test chyu=673) 2.5 mg/dL 2.3-4.7 [id number] 07:06:00 Test Item Value Reference Range Comments MAGNESIUM (BEAKER) (test mazb=903) 2.0 mg/dL 1.6-2.6 COMPREHENSIVE METABOLIC [id number] 07:06:00 Test Item Value Reference Range Comments TOTAL PROTEIN (BEAKER) 6.3 gm/dL 6.0-8.3 (test uhcm=675) ALBUMIN (BEAKER) (test 3.1 g/dL 3.5-5.0 cnyr=2999) ALKALINE PHOSPHATASE 108 U/L 40-150 (BEAKER) (test csdf=143) BILIRUBIN TOTAL (BEAKER) 0.3 mg/dL 0.2-1.2 (test xwey=691) SODIUM (BEAKER) (test 139 meq/L 136-145 vngz=186) POTASSIUM (BEAKER) (test 4.7 meq/L 3.5-5.1 shvs=607) CHLORIDE (BEAKER) (test 107 meq/L 98-107 jgzt=809) CO2 (BEAKER) (test 25 meq/L 22-29 kouo=614) BLOOD UREA NITROGEN 6 mg/dL 7-21 (BEAKER) (test rmoo=601) CREATININE (BEAKER) (test 0.57 mg/dL 0.57-1.25 pkre=364) GLUCOSE RANDOM (BEAKER) 98 mg/dL 70-105 (test ptdz=745) CALCIUM (BEAKER) (test 8.8 mg/dL 8.4-10.2 sodr=181) AST (SGOT) (BEAKER) (test 25 U/L 5-34 gupa=539) ALT (SGPT) (BEAKER) (test 19 U/L 6-55 bhvz=247) EGFR (BEAKER) (test 142 mL/min/1.73 sq ESTIMATED GFR IS NOT gftc=9377) m ACCURATE CREATININE CLEARANCE IN PREDICTING GLOMERULAR FILTRATION RATE. ESTIMATED GFR IS NOT APPLICABLE FOR DIALYSIS PATIENTS. PROTHROMBIN [id number] 06:40:00 Test Item Value Reference Range Comments PROTIME (BEAKER) (test dquj=576) 12.5 seconds 11.7-14.7 INR (BEAKER) (test puqf=451) 1.0 <=5.9 RECOMMENDED COUMADIN/WARFARIN INR THERAPY RANGESSTANDARD DOSE: 2.0 - 3.0 Includes: PROPHYLAXIS forvenous thrombosis, systemic embolization; TREATMENT for venous thrombosis and/or pulmonary embolus.HIGH RISK: Target INR is 2.5-3.5 for patients with mechanical heart valves.URINALYSIS W/ [id number] 06 :18:00 Test Item Value Reference Range Comments COLOR (BEAKER) (test wivg=350) Yellow CLARITY (BEAKER) (test apcb=012) Clear SPECIFIC GRAVITY UA (BEAKER) (test btkt=769) 1.010 1.001-1.035 PH UA (BEAKER) (test ztmd=050) 8.0 5.0-8.0 PROTEIN UA (BEAKER) (test tuxm=100) Negative Negative GLUCOSE UA (BEAKER) (test zzjp=362) Negative Negative KETONES UA (BEAKER) (test swll=102) 10 mg/dL Negative BILIRUBIN UA (BEAKER) (test yiyi=390) Negative Negative BLOOD UA (BEAKER) (test qvxx=602) Negative Negative NITRITE UA (BEAKER) (test dtwj=950) Negative Negative LEUKOCYTE ESTERASE UA (BEAKER) (test orqj=760) Negative Negative UROBILINOGEN UA (BEAKER) (test incp=216) 3.0 mg/dL 0.2-1.0 RBC UA (BEAKER) (test smli=747) 0 /HPF WBC UA (BEAKER) (test qxtw=545) < /HPF SQUAMOUS EPITHELIAL (BEAKER) (test uhrl=503) < /HPF SOURCE(BEAKER) (test wbev=7784) Urine, Voided COMPREHENSIVE METABOLIC [id number] 05:47:00 Test Item Value Reference Range Comments TOTAL PROTEIN (BEAKER) 5.5 gm/dL 6.0-8.3 (test yvnr=887) ALBUMIN (BEAKER) (test 2.7 g/dL 3.5-5.0 yqnv=8369) ALKALINE PHOSPHATASE 97 U/L 40-150 (BEAKER) (test pieg=769) BILIRUBIN TOTAL (BEAKER) 0.3 mg/dL 0.2-1.2 (test viqy=980) SODIUM (BEAKER) (test 140 meq/L 136-145 cihx=152) POTASSIUM (BEAKER) (test 3.4 meq/L 3.5-5.1 vlhl=530) CHLORIDE (BEAKER) (test 105 meq/L 98-107 aezm=169) CO2 (BEAKER) (test 26 meq/L 22-29 ixyq=797) BLOOD UREA NITROGEN 7 mg/dL 7-21 (BEAKER) (test itpb=115) CREATININE (BEAKER) (test 0.50 mg/dL 0.57-1.25 okxl=200) GLUCOSE RANDOM (BEAKER) 96 mg/dL 70-105 (test katk=455) CALCIUM (BEAKER) (test 8.1 mg/dL 8.4-10.2 pwjq=867) AST (SGOT) (BEAKER) (test 27 U/L 5-34 bjsi=059) ALT (SGPT) (BEAKER) (test 19 U/L 6-55 oogk=619) EGFR (BEAKER) (test 165 mL/min/1.73 sq ESTIMATED GFR IS NOT ssyh=3069) m ACCURATE CREATININE CLEARANCE IN PREDICTING GLOMERULAR FILTRATION RATE. ESTIMATED GFR IS NOT APPLICABLE FOR DIALYSIS PATIENTS. CBC (HEMOGRAM ONLY)2016-12-04 05:45:00 Test Item Value Reference Range Comments WHITE BLOOD CELL COUNT (BEAKER) (test snrh=782) 6.9 K/ L 3.5-10.5 RED BLOOD CELL COUNT (BEAKER) (test pdme=785) 2.72 M/ L 4.63-6.08 HEMOGLOBIN (BEAKER) (test bovr=091) 8.6 GM/DL 13.7-17.5 HEMATOCRIT (BEAKER) (test gqha=220) 25.5 % 40.1-51.0 MEAN CORPUSCULAR VOLUME (BEAKER) (test muqz=055) 93.8 fL 79.0-92.2 MEAN CORPUSCULAR HEMOGLOBIN (BEAKER) (test 31.6 pg 25.7-32.2 pxkm=206) MEAN CORPUSCULAR HEMOGLOBIN CONC (BEAKER) (test 33.7 GM/DL 32.3-36.5 dyyy=026) RED CELL DISTRIBUTION WIDTH (BEAKER) (test 15.0 % 11.6-14.4 bqjn=701) PLATELET COUNT (BEAKER) (test hjud=221) 272 K/CU MM 150-450 MEAN PLATELET VOLUME (BEAKER) (test ezfh=667) 10.4 fL 9.4-12.4 NUCLEATED RED BLOOD CELLS (BEAKER) (test 0 /100 WBC 0-0 xdut=211) COMPREHENSIVE METABOLIC [id number] 10:08:00 Test Item Value Reference Range Comments TOTAL PROTEIN (BEAKER) 5.8 gm/dL 6.0-8.3 (test bcgm=672) ALBUMIN (BEAKER) (test 2.8 g/dL 3.5-5.0 cvba=9630) ALKALINE PHOSPHATASE 94 U/L 40-150 (BEAKER) (test eytq=996) BILIRUBIN TOTAL (BEAKER) 0.3 mg/dL 0.2-1.2 (test suzy=712) SODIUM (BEAKER) (test 138 meq/L 136-145 gsib=199) POTASSIUM (BEAKER) (test 3.6 meq/L 3.5-5.1 muso=402) CHLORIDE (BEAKER) (test 103 meq/L 98-107 xbwv=512) CO2 (BEAKER) (test 26 meq/L 22-29 qvkl=635) BLOOD UREA NITROGEN 14 mg/dL 7-21 (BEAKER) (test ykmf=130) CREATININE (BEAKER) (test 0.54 mg/dL 0.57-1.25 sapp=770) GLUCOSE RANDOM (BEAKER) 86 mg/dL 70-105 (test erph=976) CALCIUM (BEAKER) (test 8.2 mg/dL 8.4-10.2 jfme=156) AST (SGOT) (BEAKER) (test 35 U/L 5-34 qzvk=565) ALT (SGPT) (BEAKER) (test 24 U/L 6-55 zpzt=260) EGFR (BEAKER) (test 151 mL/min/1.73 sq ESTIMATED GFR IS NOT junc=6784) m ACCURATE CREATININE CLEARANCE IN PREDICTING GLOMERULAR FILTRATION RATE. ESTIMATED GFR IS NOT APPLICABLE FOR DIALYSIS PATIENTS. CBC (HEMOGRAM ONLY)2016-12-03 09:38:00 Test Item Value Reference Range Comments WHITE BLOOD CELL COUNT (BEAKER) (test hkpo=903) 6.5 K/ L 3.5-10.5 RED BLOOD CELL COUNT (BEAKER) (test kaih=898) 2.54 M/ L 4.63-6.08 HEMOGLOBIN (BEAKER) (test pjmr=681) 8.1 GM/DL 13.7-17.5 HEMATOCRIT (BEAKER) (test knit=874) 24.4 % 40.1-51.0 MEAN CORPUSCULAR VOLUME (BEAKER) (test dkkg=256) 96.1 fL 79.0-92.2 MEAN CORPUSCULAR HEMOGLOBIN (BEAKER) (test 31.9 pg 25.7-32.2 vgra=022) MEAN CORPUSCULAR HEMOGLOBIN CONC (BEAKER) (test 33.2 GM/DL 32.3-36.5 vhmg=200) RED CELL DISTRIBUTION WIDTH (BEAKER) (test 15.1 % 11.6-14.4 clbf=988) PLATELET COUNT (BEAKER) (test kwgh=030) 233 K/CU MM 150-450 MEAN PLATELET VOLUME (BEAKER) (test bzgq=153) 10.8 fL 9.4-12.4 NUCLEATED RED BLOOD CELLS (BEAKER) (test 0 /100 WBC 0-0 ojfa=567) POCT-GLUCOSE [id number] 12:08:00 Test Item Value Reference Range Comments POC-GLUCOSE METER (BEAKER) 111 mg/dL 70-110 TESTED AT [facility] [address] [facility] (test hszc=6103) [facility] [address] POCT-GLUCOSE [id number] 08:40:00 Test Item Value Reference Range Comments POC-GLUCOSE METER (BEAKER) 184 mg/dL 70-110 TESTED AT [facility] [address] (test labo=5603) [facility] [address] [id number] 05:57:00 Test Item Value Reference Range Comments MAGNESIUM (BEAKER) (test lgwr=065) 2.1 mg/dL 1.6-2.6 BASIC METABOLIC [id number] 05:57:00 Test Item Value Reference Range Comments SODIUM (BEAKER) (test 139 meq/L 136-145 shek=148) POTASSIUM (BEAKER) (test 3.4 meq/L 3.5-5.1 nvje=498) CHLORIDE (BEAKER) (test 102 meq/L 98-107 uwwi=299) CO2 (BEAKER) (test 26 meq/L 22-29 kmiv=143) BLOOD UREA NITROGEN 15 mg/dL 7-21 (BEAKER) (test jgih=664) CREATININE (BEAKER) (test 0.62 mg/dL 0.57-1.25 madi=702) GLUCOSE RANDOM (BEAKER) 104 mg/dL 70-105 (test upvj=108) CALCIUM (BEAKER) (test 8.8 mg/dL 8.4-10.2 uubj=135) EGFR (BEAKER) (test 129 mL/min/1.73 sq m ESTIMATED GFR IS NOT ztyc=4993) ACCURATE CREATININE CLEARANCE IN PREDICTING GLOMERULAR FILTRATION RATE. ESTIMATED GFR IS NOT APPLICABLE FOR DIALYSIS PATIENTS. CBC (HEMOGRAM ONLY)2016-12-02 05:25:00 Test Item Value Reference Range Comments WHITE BLOOD CELL COUNT (BEAKER) (test yayc=735) 8.2 K/ L 3.5-10.5 RED BLOOD CELL COUNT (BEAKER) (test jbfx=789) 2.68 M/ L 4.63-6.08 HEMOGLOBIN (BEAKER) (test htrm=683) 8.6 GM/DL 13.7-17.5 HEMATOCRIT (BEAKER) (test hnrr=012) 24.7 % 40.1-51.0 MEAN CORPUSCULAR VOLUME (BEAKER) (test nyyz=628) 92.2 fL 79.0-92.2 MEAN CORPUSCULAR HEMOGLOBIN (BEAKER) (test 32.1 pg 25.7-32.2 mhfx=180) MEAN CORPUSCULAR HEMOGLOBIN CONC (BEAKER) (test 34.8 GM/DL 32.3-36.5 vaha=730) RED CELL DISTRIBUTION WIDTH (BEAKER) (test 15.0 % 11.6-14.4 lqfb=373) PLATELET COUNT (BEAKER) (test qwkn=766) 226 K/CU MM 150-450 MEAN PLATELET VOLUME (BEAKER) (test mixb=691) 10.7 fL 9.4-12.4 NUCLEATED RED BLOOD CELLS (BEAKER) (test 0 /100 WBC 0-0 tqsa=081) POCT-GLUCOSE [id number] 21:18:00 Test Item Value Reference Range Comments POC-GLUCOSE METER (BEAKER) 118 mg/dL 70-110 TESTED AT [address] (test bppq=4270) [facility] [address] POCT-GLUCOSE [id number] 17:33:00 Test Item Value Reference Range Comments POC-GLUCOSE METER (BEAKER) 102 mg/dL 70-110 TESTED AT [address] (test nzqc=1692) [facility] [address] POCT-GLUCOSE [id number] 12:06:00 Test Item Value Reference Range Comments POC-GLUCOSE METER (BEAKER) 188 mg/dL 70-110 TESTED AT [address] (test ifid=7635) [place] [id number] POCT-GLUCOSE [id number] 08:31:00 Test Item Value Reference Range Comments POC-GLUCOSE METER (BEAKER) 109 mg/dL 70-110 TESTED AT [address] (test nkex=4428) [facility] [address] [id number] 06:07:00 Test Item Value Reference Range Comments MAGNESIUM (BEAKER) (test mppb=500) 2.0 mg/dL 1.6-2.6 BASIC METABOLIC [id number] 06:07:00 Test Item Value Reference Range Comments SODIUM (BEAKER) (test 139 meq/L 136-145 drnp=318) POTASSIUM (BEAKER) (test 3.6 meq/L 3.5-5.1 hgqd=289) CHLORIDE (BEAKER) (test 104 meq/L 98-107 fidh=262) CO2 (BEAKER) (test 27 meq/L 22-29 cmzu=355) BLOOD UREA NITROGEN 15 mg/dL 7-21 (BEAKER) (test rdmy=364) CREATININE (BEAKER) (test 0.60 mg/dL 0.57-1.25 ytjv=396) GLUCOSE RANDOM (BEAKER) 104 mg/dL 70-105 (test nowa=904) CALCIUM (BEAKER) (test 9.0 mg/dL 8.4-10.2 gcxy=844) EGFR (BEAKER) (test 134 mL/min/1.73 sq m ESTIMATED GFR IS NOT bxow=0621) ACCURATE CREATININE CLEARANCE IN PREDICTING GLOMERULAR FILTRATION RATE. ESTIMATED GFR IS NOT APPLICABLE FOR DIALYSIS PATIENTS. [id number] 05:40:00 Test Item Value Reference Range Comments PROTIME (BEAKER) (test lugu=529) 14.1 seconds 11.7-14.7 INR (BEAKER) (test tvbs=449) 1.1 <=5.9 PARTIAL THROMBOPLASTIN TIME (BEAKER) (test 46.2 seconds 22.5-36.0 srvq=937) RECOMMENDED COUMADIN/WARFARIN INR THERAPY RANGESSTANDARD DOSE: 2.0 - 3.0 Includes: PROPHYLAXIS forvenous thrombosis, systemic embolization; TREATMENT for venous thrombosis and/or pulmonary embolus.HIGH RISK: Target INR is 2.5-3.5 for patients with mechanical heart valves.CBC (HEMOGRAM ONLY)2016-12-01 05:18:00 Test Item Value Reference Range Comments WHITE BLOOD CELL COUNT (BEAKER) (test pqrz=323) 9.1 K/ L 3.5-10.5 RED BLOOD CELL COUNT (BEAKER) (test yrqx=276) 2.69 M/ L 4.63-6.08 HEMOGLOBIN (BEAKER) (test wpee=495) 8.5 GM/DL 13.7-17.5 HEMATOCRIT (BEAKER) (test ocih=357) 25.6 % 40.1-51.0 MEAN CORPUSCULAR VOLUME (BEAKER) (test ytrx=659) 95.2 fL 79.0-92.2 MEAN CORPUSCULAR HEMOGLOBIN (BEAKER) (test 31.6 pg 25.7-32.2 oftz=555) MEAN CORPUSCULAR HEMOGLOBIN CONC (BEAKER) (test 33.2 GM/DL 32.3-36.5 zksi=926) RED CELL DISTRIBUTION WIDTH (BEAKER) (test 15.0 % 11.6-14.4 bafm=018) PLATELET COUNT (BEAKER) (test kdwl=894) 190 K/CU MM 150-450 MEAN PLATELET VOLUME (BEAKER) (test uzvs=355) 10.7 fL 9.4-12.4 NUCLEATED RED BLOOD CELLS (BEAKER) (test 0 /100 WBC 0-0 khpz=380) POCT-GLUCOSE [id number] 21:01:00 Test Item Value Reference Range Comments POC-GLUCOSE METER (BEAKER) 118 mg/dL 70-110 TESTED AT [address] (test thql=1220) [place] [id number] POCT-GLUCOSE [id number] 18:51:00 Test Item Value Reference Range Comments POC-GLUCOSE METER (BEAKER) 117 mg/dL 70-110 TESTED AT [address] (test lwfz=6491) [place] [id number] POCT-GLUCOSE [id number] 14:02:00 Test Item Value Reference Range Comments POC-GLUCOSE METER (BEAKER) 129 mg/dL 70-110 TESTED AT [address] (test zijj=5990) [place] [id number] 04:19:00 Test Item Value Reference Range Comments MAGNESIUM (BEAKER) (test qnea=606) 1.8 mg/dL 1.6-2.6 BASIC METABOLIC [id number] 04:19:00 Test Item Value Reference Range Comments SODIUM (BEAKER) (test 138 meq/L 136-145 hmbj=616) POTASSIUM (BEAKER) (test 4.0 meq/L 3.5-5.1 qvqe=098) CHLORIDE (BEAKER) (test 107 meq/L 98-107 bnzp=256) CO2 (BEAKER) (test 23 meq/L 22-29 penf=405) BLOOD UREA NITROGEN 8 mg/dL 7-21 (BEAKER) (test aqdy=589) CREATININE (BEAKER) (test 0.55 mg/dL 0.57-1.25 gfuq=248) GLUCOSE RANDOM (BEAKER) 119 mg/dL 70-105 (test flhq=654) CALCIUM (BEAKER) (test 8.8 mg/dL 8.4-10.2 dqkb=412) EGFR (BEAKER) (test 148 mL/min/1.73 sq m ESTIMATED GFR IS NOT amjp=8538) ACCURATE CREATININE CLEARANCE IN PREDICTING GLOMERULAR FILTRATION RATE. ESTIMATED GFR IS NOT APPLICABLE FOR DIALYSIS PATIENTS. [id number] 04:13:00 Test Item Value Reference Range Comments PROTIME (BEAKER) (test jsis=158) 14.9 seconds 11.7-14.7 INR (BEAKER) (test bbzb=479) 1.2 <=5.9 PARTIAL THROMBOPLASTIN TIME (BEAKER) (test 42.4 seconds 22.5-36.0 fcsm=099) RECOMMENDED COUMADIN/WARFARIN INR THERAPY RANGESSTANDARD DOSE: 2.0 - 3.0 Includes: PROPHYLAXIS forvenous thrombosis, systemic embolization; TREATMENT for venous thrombosis and/or pulmonary embolus.HIGH RISK: Target INR is 2.5-3.5 for patients with mechanical heart valves.Prior to initiating heparinPrior to initiating [id number] 04:13:00 Test Item Value Reference Range Comments PARTIAL THROMBOPLASTIN TIME (BEAKER) (test 42.4 seconds 22.5-36.0 smhd=957) LACTIC ACID, ARTERIAL, WHOLE [id number] 04:09:00 Test Item Value Reference Range Comments LACTATE BLOOD ARTERIAL (2) (BEAKER) (test 1.1 mmol/L 0.5-2.2 uytz=6098) Effective 08/17/2015: Units/Reference Range ChangeNew: 0.5-2.2 mmol/L Previous: 5 -20 mg/dLCBC (HEMOGRAM ONLY)2016-11-30 04:03:00 Test Item Value Reference Range Comments WHITE BLOOD CELL COUNT (BEAKER) (test vnnu=170) 10.5 K/ L 3.5-10.5 RED BLOOD CELL COUNT (BEAKER) (test djwe=832) 2.93 M/ L 4.63-6.08 HEMOGLOBIN (BEAKER) (test hxkq=040) 9.4 GM/DL 13.7-17.5 HEMATOCRIT (BEAKER) (test vmcg=197) 27.5 % 40.1-51.0 MEAN CORPUSCULAR VOLUME (BEAKER) (test sjpx=014) 93.9 fL 79.0-92.2 MEAN CORPUSCULAR HEMOGLOBIN (BEAKER) (test 32.1 pg 25.7-32.2 uuar=557) MEAN CORPUSCULAR HEMOGLOBIN CONC (BEAKER) (test 34.2 GM/DL 32.3-36.5 egdk=780) RED CELL DISTRIBUTION WIDTH (BEAKER) (test 15.3 % 11.6-14.4 iavm=808) PLATELET COUNT (BEAKER) (test tbfr=581) 189 K/CU MM 150-450 MEAN PLATELET VOLUME (BEAKER) (test lbsc=284) 10.8 fL 9.4-12.4 NUCLEATED RED BLOOD CELLS (BEAKER) (test 0 /100 WBC 0-0 dvsx=940) CALCIUM, [id number] 03:54:00 Test Item Value Reference Range Comments CALCIUM IONIZED (BEAKER) (test pvvs=246) 1.14 mmol/L 1.12-1.27 PH, BLOOD (BEAKER) (test rnqi=9903) 7.49 BLOOD GAS, [id number] 03:54:00 Test Item Value Reference Range Comments PH ARTERIAL (BEAKER) (test dbxt=243) 7.48 7.35-7.45 PCO2 ARTERIAL (BEAKER) (test yrqz=900) 36 mmHg 35-45 PO2 ARTERIAL (BEAKER) (test jmph=210) 81 mmHg 80-90 O2 SATURATION ARTERIAL (BEAKER) (test imao=715) 96.4 % 96.0-97.0 HCO3 ARTERIAL (BEAKER) (test lsmb=942) 26 mmol/L 21-29 BASE EXCESS ARTERIAL (BEAKER) (test mwqh=553) 2.5 mmol/L -2.0-3.0 PATIENT TEMPERATURE (BEAKER) (test zzfq=2118) 37.6 C FIO2 (BEAKER) (test pvtm=2699) 36.0 % POCT-GLUCOSE [id number] 17:32:00 Test Item Value Reference Range Comments POC-GLUCOSE METER (BEAKER) 121 mg/dL 70-110 TESTED AT [facility] [address] [facility] (test vbya=6737) [place] [address] PLATELET AGGREGATION: FUNCTION [id number] 14:46:00 Test Item Value Reference Range Comments WEAK ADP RESULT(BEAKER) (test 82 % 60-91 ylhf=1062) PLATELET FUNCTION SCREEN 60-100% indicates normal INTERP (BEAKER) (test platelet function dlzz=3653) [id number] (BEAKER) Mari Phelan MD (electronic (test gsre=1120) signature) PLATELET COUNT AGG (BEAKER) 221 K/CU MM 150-450 (test tlwt=2703) POCT-GLUCOSE [id number] 12:58:00 Test Item Value Reference Range Comments POC-GLUCOSE METER (BEAKER) 129 mg/dL 70-110 TESTED AT [address] (test bitp=3879) [place] [address] HEMOGLOBIN [id number] 09:09:00 Test Item Value Reference Range Comments HEMOGLOBIN A1C (BEAKER) (test tmge=327) 5.1 % 4.3-6.1 BLOOD GAS, [id number] 06:57:00 Test Item Value Reference Range Comments PH ARTERIAL (BEAKER) (test bbke=985) 7.46 7.35-7.45 PCO2 ARTERIAL (BEAKER) (test vmjv=140) 35 mmHg 35-45 PO2 ARTERIAL (BEAKER) (test rmxn=574) 130 mmHg 80-90 O2 SATURATION ARTERIAL (BEAKER) (test lcjc=426) 98.7 % 96.0-97.0 HCO3 ARTERIAL (BEAKER) (test afbg=850) 24 mmol/L 21-29 BASE EXCESS ARTERIAL (BEAKER) (test gwxr=658) 1.1 mmol/L -2.0-3.0 PATIENT TEMPERATURE (BEAKER) (test fhae=3468) 37.8 C FIO2 (BEAKER) (test wmgg=6966) 40.0 % POCT-GLUCOSE [id number] 06:01:00 Test Item Value Reference Range Comments POC-GLUCOSE METER (BEAKER) 154 mg/dL 70-110 TESTED AT [address] (test tpim=6080) [place] [address] [id number] 05:02:00 Test Item Value Reference Range Comments MAGNESIUM (BEAKER) (test ynft=169) 2.0 mg/dL 1.6-2.6 BASIC METABOLIC [id number] 05:02:00 Test Item Value Reference Range Comments SODIUM (BEAKER) (test 140 meq/L 136-145 cjrg=750) POTASSIUM (BEAKER) (test 4.2 meq/L 3.5-5.1 zubd=642) CHLORIDE (BEAKER) (test 109 meq/L 98-107 ijnz=864) CO2 (BEAKER) (test 23 meq/L 22-29 knht=251) BLOOD UREA NITROGEN 7 mg/dL 7-21 (BEAKER) (test ntox=084) CREATININE (BEAKER) (test 0.62 mg/dL 0.57-1.25 icfv=427) GLUCOSE RANDOM (BEAKER) 153 mg/dL 70-105 (test qgzk=105) CALCIUM (BEAKER) (test 8.4 mg/dL 8.4-10.2 upck=581) EGFR (BEAKER) (test 129 mL/min/1.73 sq m ESTIMATED GFR IS NOT durg=5815) ACCURATE CREATININE CLEARANCE IN PREDICTING GLOMERULAR FILTRATION RATE. ESTIMATED GFR IS NOT APPLICABLE FOR DIALYSIS PATIENTS. [id number] 04:56:00 Test Item Value Reference Range Comments PROTIME (BEAKER) (test gwog=732) 13.9 seconds 11.7-14.7 INR (BEAKER) (test hhih=823) 1.1 <=5.9 PARTIAL THROMBOPLASTIN TIME (BEAKER) (test 36.5 seconds 22.5-36.0 mcua=273) RECOMMENDED COUMADIN/WARFARIN INR THERAPY RANGESSTANDARD DOSE: 2.0 - 3.0 Includes: PROPHYLAXIS forvenous thrombosis, systemic embolization; TREATMENT for venous thrombosis and/or pulmonary embolus.HIGH RISK: Target INR is 2.5-3.5 for patients with mechanical heart valves.CBC W/PLT COUNT & AUTO [id number] 04:54:00 Test Item Value Reference Range Comments WHITE BLOOD CELL COUNT (BEAKER) (test rfry=233) 8.8 K/ L 3.5-10.5 RED BLOOD CELL COUNT (BEAKER) (test yjzn=467) 3.28 M/ L 4.63-6.08 HEMOGLOBIN (BEAKER) (test cmtf=035) 10.5 GM/DL 13.7-17.5 HEMATOCRIT (BEAKER) (test tcyf=740) 30.8 % 40.1-51.0 MEAN CORPUSCULAR VOLUME (BEAKER) (test wqvd=056) 93.9 fL 79.0-92.2 MEAN CORPUSCULAR HEMOGLOBIN (BEAKER) (test 32.0 pg 25.7-32.2 zzid=307) MEAN CORPUSCULAR HEMOGLOBIN CONC (BEAKER) (test 34.1 GM/DL 32.3-36.5 yikq=624) RED CELL DISTRIBUTION WIDTH (BEAKER) (test 15.7 % 11.6-14.4 xuyj=603) PLATELET COUNT (BEAKER) (test bmrk=005) 219 K/CU MM 150-450 MEAN PLATELET VOLUME (BEAKER) (test yiar=515) 11.0 fL 9.4-12.4 NUCLEATED RED BLOOD CELLS (BEAKER) (test 0 /100 WBC 0-0 blfv=684) NEUTROPHILS RELATIVE PERCENT (BEAKER) (test 74 % zymo=519) LYMPHOCYTES RELATIVE PERCENT (BEAKER) (test 7 % wrkb=688) MONOCYTES RELATIVE PERCENT (BEAKER) (test 19 % ycuy=938) EOSINOPHILS RELATIVE PERCENT (BEAKER) (test 0 % mafy=490) BASOPHILS RELATIVE PERCENT (BEAKER) (test 0 % iigt=647) NEUTROPHILS ABSOLUTE COUNT (BEAKER) (test 6.45 K/ L 1.78-5.38 tkph=973) LYMPHOCYTES ABSOLUTE COUNT (BEAKER) (test 0.63 K/ L 1.32-3.57 hwhg=963) MONOCYTES ABSOLUTE COUNT (BEAKER) (test 1.64 K/ L 0.30-0.82 mqoe=380) EOSINOPHILS ABSOLUTE COUNT (BEAKER) (test 0.01 K/ L 0.04-0.54 hxyh=358) BASOPHILS ABSOLUTE COUNT (BEAKER) (test 0.03 K/ L 0.01-0.08 jkle=696) IMMATURE GRANULOCYTES-RELATIVE PERCENT (BEAKER) 0 % 0-1 (test upua=8852) LACTIC ACID, ARTERIAL, WHOLE [id number] 04:39:00 Test Item Value Reference Range Comments LACTATE BLOOD ARTERIAL (2) (BEAKER) (test 1.2 mmol/L 0.5-2.2 thwo=8551) Effective 08/17/2015: Units/Reference Range ChangeNew: 0.5-2.2 mmol/L Previous: 5 -20 mg/dLCALCIUM, [id number] 04:11:00 Test Item Value Reference Range Comments CALCIUM IONIZED (BEAKER) (test fuym=554) 1.17 mmol/L 1.12-1.27 PH, BLOOD (BEAKER) (test ymbc=5751) 7.44 BLOOD GAS, [id number] 04:11:00 Test Item Value Reference Range Comments PH ARTERIAL (BEAKER) (test zbqp=070) 7.42 7.35-7.45 PCO2 ARTERIAL (BEAKER) (test fzdn=701) 39 mmHg 35-45 PO2 ARTERIAL (BEAKER) (test vzsh=339) 110 mmHg 80-90 O2 SATURATION ARTERIAL (BEAKER) (test wdfv=599) 97.9 % 96.0-97.0 HCO3 ARTERIAL (BEAKER) (test aqyz=764) 25 mmol/L 21-29 BASE EXCESS ARTERIAL (BEAKER) (test ihnk=114) 0.6 mmol/L -2.0-3.0 PATIENT TEMPERATURE (BEAKER) (test plgf=9259) 38.2 C FIO2 (BEAKER) (test cbne=2306) 40.0 % OXYGEN SATURATION, [id number] 04:09:00 Test Item Value Reference Range Comments O2 SATURATION (MEASURED) (BEAKER) (test scnq=5866) 80.7 % POCT-GLUCOSE [id number] 02:46:00 Test Item Value Reference Range Comments POC-GLUCOSE METER (BEAKER) 150 mg/dL 70-110 TESTED AT [address] (test dwdn=7145) [facility] [address] POCT-GLUCOSE [id number] 18:29:00 Test Item Value Reference Range Comments POC-GLUCOSE METER (BEAKER) 111 mg/dL 70-110 TESTED AT [address] (test mzbh=8693) [facility] [address] [id number] 16:27:00 Test Item Value Reference Range Comments POTASSIUM (BEAKER) (test voen=876) 4.2 meq/L 3.5-5.1 [id number] 16:27:00 Test Item Value Reference Range Comments MAGNESIUM (BEAKER) (test zkbh=834) 2.1 mg/dL 1.6-2.6 [id number] 16:27:00 Test Item Value Reference Range Comments SODIUM (BEAKER) (test zcns=043) 141 meq/L 136-145 BASIC METABOLIC [id number] 16:27:00 Test Item Value Reference Range Comments SODIUM (BEAKER) (test 141 meq/L 136-145 jhnp=661) POTASSIUM (BEAKER) (test 4.2 meq/L 3.5-5.1 wgcs=141) CHLORIDE (BEAKER) (test 112 meq/L 98-107 youw=516) CO2 (BEAKER) (test 21 meq/L 22-29 xwyd=786) BLOOD UREA NITROGEN 8 mg/dL 7-21 (BEAKER) (test ceff=016) CREATININE (BEAKER) (test 0.61 mg/dL 0.57-1.25 tamv=392) GLUCOSE RANDOM (BEAKER) 167 mg/dL 70-105 (test ghrj=064) CALCIUM (BEAKER) (test 8.5 mg/dL 8.4-10.2 rzce=770) EGFR (BEAKER) (test 131 mL/min/1.73 sq m ESTIMATED GFR IS NOT flte=0108) ACCURATE CREATININE CLEARANCE IN PREDICTING GLOMERULAR FILTRATION RATE. ESTIMATED GFR IS NOT APPLICABLE FOR DIALYSIS PATIENTS. LACTIC ACID, ARTERIAL, WHOLE [id number] 16:23:00 Test Item Value Reference Range Comments LACTATE BLOOD ARTERIAL (2) 1.8 mmol/L 0.5-2.2 Specimen slightly hemolyzed (BEAKER) (test uofx=7815) Effective 08/17/2015: Units/Reference Range ChangeNew: 0.5-2.2 mmol/L Previous: 5 -20 mg/dLPT/[id number] 16:18:00 Test Item Value Reference Range Comments PROTIME (BEAKER) (test nolx=219) 14.2 seconds 11.7-14.7 INR (BEAKER) (test luiu=881) 1.1 <=5.9 PARTIAL THROMBOPLASTIN TIME (BEAKER) (test 35.0 seconds 22.5-36.0 aisl=269) RECOMMENDED COUMADIN/WARFARIN INR THERAPY RANGESSTANDARD DOSE: 2.0 - 3.0 Includes: PROPHYLAXIS forvenous thrombosis, systemic embolization; TREATMENT for venous thrombosis and/or pulmonary embolus.HIGH RISK: Target INR is 2.5-3.5 for patients with mechanical heart valves.HEMOGLOBIN AND [id number] 16 :10:00 Test Item Value Reference Range Comments HEMOGLOBIN (BEAKER) (test calj=135) 10.0 GM/DL 13.7-17.5 HEMATOCRIT (BEAKER) (test dyku=127) 29.0 % 40.1-51.0 CBC (HEMOGRAM ONLY)[id number] 16:10:00 Test Item Value Reference Range Comments WHITE BLOOD CELL COUNT (BEAKER) (test qghz=892) 7.6 K/ L 3.5-10.5 RED BLOOD CELL COUNT (BEAKER) (test ccfj=225) 3.06 M/ L 4.63-6.08 HEMOGLOBIN (BEAKER) (test diwu=142) 10.0 GM/DL 13.7-17.5 HEMATOCRIT (BEAKER) (test xjnt=126) 29.0 % 40.1-51.0 MEAN CORPUSCULAR VOLUME (BEAKER) (test acpe=226) 94.8 fL 79.0-92.2 MEAN CORPUSCULAR HEMOGLOBIN (BEAKER) (test 32.7 pg 25.7-32.2 iohc=854) MEAN CORPUSCULAR HEMOGLOBIN CONC (BEAKER) (test 34.5 GM/DL 32.3-36.5 msko=911) RED CELL DISTRIBUTION WIDTH (BEAKER) (test 15.2 % 11.6-14.4 ymfu=887) PLATELET COUNT (BEAKER) (test udow=881) 208 K/CU MM 150-450 MEAN PLATELET VOLUME (BEAKER) (test fmfi=087) 10.4 fL 9.4-12.4 NUCLEATED RED BLOOD CELLS (BEAKER) (test 0 /100 WBC 0-0 fvia=846) BLOOD GAS, [id number] 16:03:00 Test Item Value Reference Range Comments PH ARTERIAL (BEAKER) (test tjnm=458) 7.36 7.35-7.45 PCO2 ARTERIAL (BEAKER) (test swng=091) 45 mmHg 35-45 PO2 ARTERIAL (BEAKER) (test crww=400) 142 mmHg 80-90 O2 SATURATION ARTERIAL (BEAKER) (test xdew=496) 98.8 % 96.0-97.0 HCO3 ARTERIAL (BEAKER) (test resj=142) 25 mmol/L 21-29 BASE EXCESS ARTERIAL (BEAKER) (test lwzt=259) -1.2 mmol/L -2.0-3.0 PATIENT TEMPERATURE (BEAKER) (test wrse=3198) 35.8 C FIO2 (BEAKER) (test ormb=4401) 60.0 % CALCIUM, [id number] 16:03:00 Test Item Value Reference Range Comments CALCIUM IONIZED (BEAKER) (test cwfm=664) 1.18 mmol/L 1.12-1.27 PH, BLOOD ([facility]) (test wcwx=0708) 7.36 OXYGEN SATURATION, [id number] 16:02:00 Test Item Value Reference Range Comments O2 SATURATION (MEASURED) ([facility]) (test mkfm=9164) 82.9 % [id number] 15:26:00 Test Item Value Reference Range Comments ACTIVATED CLOTTING TIME 120 sec TESTED AT [address] [facility] (test ewws=136) [place] [address] [id number] 15:26:00 Test Item Value Reference Range Comments ACTIVATED CLOTTING TIME 802 sec TESTED AT [address] [facility] (test tvvp=326) [place] [address] [id number] 15:26:00 Test Item Value Reference Range Comments ACTIVATED CLOTTING TIME 884 sec TESTED AT [address] [facility] (test ouye=288) [place] [address] [id number] 15:26:00 Test Item Value Reference Range Comments ACTIVATED CLOTTING TIME 621 sec TESTED AT [address] (BEAKER) (test qpuy=288) [place] [address] THROMBOELASTOGRAPH (TEG)2016-11-28 14:00:00 Test Item Value Reference Range Comments TEG ACTIVATED CLOTTING TIME (BEAKER) (test 8.7 minutes 4.0-7.0 elpn=0165) TEG FIBRINOGEN ACTIVITY (BEAKER) (test 73.1 degrees 61.0-73.0 bwkp=5226) TEG PLT. AGGREGATION (BEAKER) (test zshj=0067) 70.6 MM 55.0-65.0 TGH ACTIVATED CLOTTING TIME (BEAKER) (test 8.7 minutes 4.0-7.0 ivhm=9512) TGH FIBRINOGEN ACTIVITY (BEAKER) (test 73.0 degrees 61.0-73.0 asog=7317) TGH PLT. AGGREGATION (BEAKER) (test pnlw=0732) 69.3 MM 55.0-65.0 [id number] 13:28:00 Test Item Value Reference Range Comments FIBRINOGEN LEVEL (BEAKER) (test sqmy=957) 458 mg/dl 225-434 [id number] 13:28:00 Test Item Value Reference Range Comments PARTIAL THROMBOPLASTIN TIME (BEAKER) (test 39.7 seconds 22.5-36.0 nifk=875) PROTHROMBIN [id number] 13:27:00 Test Item Value Reference Range Comments PROTIME (BEAKER) (test ydrj=720) 17.4 seconds 11.7-14.7 INR (BEAKER) (test sktu=161) 1.4 <=5.9 RECOMMENDED COUMADIN/WARFARIN INR THERAPY RANGESSTANDARD DOSE: 2.0 - 3.0 Includes: PROPHYLAXIS forvenous thrombosis, systemic embolization; TREATMENT for venous thrombosis and/or pulmonary embolus.HIGH RISK: Target INR is 2.5-3.5 for patients with mechanical heart valves.PLATELET [id number] 13:21:00 Test Item Value Reference Range Comments PLATELET COUNT (BEAKER) 151 K/CU MM 150-450 Discordant result compared to (test lexk=694) previous result; clinical correlation required. CALCIUM, [id number] 13:06:00 Test Item Value Reference Range Comments CALCIUM IONIZED (BEAKER) (test wcai=685) 1.07 mmol/L 1.12-1.27 PH, BLOOD (BEAKER) (test pdxp=4993) 7.31 SODIUM NA-STAT [id number] 13:05:00 Test Item Value Reference Range Comments SODIUM (BEAKER) (test ftlh=607) 135 meq/L 135-148 POTASSIUM-STAT [id number] 13:05:00 Test Item Value Reference Range Comments POTASSIUM (BEAKER) (test vodn=218) 4.4 meq/L 3.6-5.5 BLOOD GAS, [id number] 13:05:00 Test Item Value Reference Range Comments PH ARTERIAL (BEAKER) (test cdqw=654) 7.34 7.35-7.45 PCO2 ARTERIAL (BEAKER) (test xmvs=840) 45 mmHg 35-45 PO2 ARTERIAL (BEAKER) (test tzbr=718) 292 mmHg 80-90 O2 SATURATION ARTERIAL (BEAKER) (test ozbv=992) 99.6 % 96.0-97.0 HCO3 ARTERIAL (BEAKER) (test exam=628) 24 mmol/L 21-29 BASE EXCESS ARTERIAL (BEAKER) (test ukut=807) -2.1 mmol/L -2.0-3.0 PATIENT TEMPERATURE (BEAKER) (test ftlm=7975) 35.2 C FIO2 (BEAKER) (test btff=2538) 67.0 % GLUCOSE-STAT [id number] 13:05:00 Test Item Value Reference Range Comments GLUCOSE RANDOM (BEAKER) (test bprr=831) 145 mg/dL 70-110 HGB/HCT (H&H) - STAT [id number] 13:05:00 Test Item Value Reference Range Comments HEMOGLOBIN (BEAKER) (test bvul=678) 10.2 g/dL 13.0-16.8 HEMATOCRIT (BEAKER) (test itsl=914) 30.0 % 40.0-50.0 BLOOD GAS, [id number] 12:26:00 Test Item Value Reference Range Comments PH ARTERIAL (BEAKER) (test ptzc=218) 7.38 7.35-7.45 PCO2 ARTERIAL (BEAKER) (test dqck=515) 42 mmHg 35-45 PO2 ARTERIAL (BEAKER) (test jfmw=884) 133 mmHg 80-90 O2 SATURATION ARTERIAL (BEAKER) (test wbxa=208) 98.6 % 96.0-97.0 HCO3 ARTERIAL (BEAKER) (test rups=687) 24 mmol/L 21-29 BASE EXCESS ARTERIAL (BEAKER) (test zpxq=623) -0.7 mmol/L -2.0-3.0 PATIENT TEMPERATURE (BEAKER) (test rwqa=5905) 37.0 C FIO2 (BEAKER) (test rmur=5613) 65.0 % GLUCOSE-STAT [id number] 12:26:00 Test Item Value Reference Range Comments GLUCOSE RANDOM (BEAKER) (test drvr=767) 132 mg/dL 70-110 HGB/HCT (H&H) - STAT [id number] 12:26:00 Test Item Value Reference Range Comments HEMOGLOBIN (BEAKER) (test remi=876) 10.6 g/dL 13.0-16.8 HEMATOCRIT (BEAKER) (test fjte=658) 31.0 % 40.0-50.0 SODIUM NA-STAT [id number] 12:25:00 Test Item Value Reference Range Comments SODIUM (BEAKER) (test nguv=417) 136 meq/L 135-148 POTASSIUM-STAT [id number] 12:25:00 Test Item Value Reference Range Comments POTASSIUM (BEAKER) (test pxij=626) 4.4 meq/L 3.6-5.5 BLOOD GAS, [id number] 12:03:00 Test Item Value Reference Range Comments PH VENOUS (BEAKER) (test uekf=636) 7.41 7.32-7.42 PCO2 VENOUS (BEAKER) (test xryg=520) 39 mmHg 41-51 PO2 VENOUS (BEAKER) (test vlrm=359) 43 mmHg 25-40 O2 SATURATION VENOUS (BEAKER) (test nima=130) 91.8 % 40.0-70.0 HCO3 VENOUS (BEAKER) (test jnpu=654) 26 mmol/L 21-29 BASE EXCESS VENOUS (BEAKER) (test ihbv=219) -0.6 mmol/L -2.0-3.0 PATIENT TEMPERATURE (BEAKER) (test evnt=7949) 30.1 C FIO2 (BEAKER) (test yhvq=5349) 65.0 % POTASSIUM-STAT [id number] 12:00:00 Test Item Value Reference Range Comments POTASSIUM (BEAKER) (test oedh=930) 4.7 meq/L 3.6-5.5 BLOOD GAS, [id number] 12:00:00 Test Item Value Reference Range Comments PH ARTERIAL (BEAKER) (test lvck=608) 7.45 7.35-7.45 PCO2 ARTERIAL (BEAKER) (test qrhj=258) 34 mmHg 35-45 PO2 ARTERIAL (BEAKER) (test vocw=734) 304 mmHg 80-90 O2 SATURATION ARTERIAL (BEAKER) (test tmpp=004) 99.7 % 96.0-97.0 HCO3 ARTERIAL (BEAKER) (test ohar=161) 25 mmol/L 21-29 BASE EXCESS ARTERIAL (BEAKER) (test fvte=244) -0.8 mmol/L -2.0-3.0 PATIENT TEMPERATURE (BEAKER) (test zcee=4121) 30.1 C FIO2 (BEAKER) (test fizf=8778) 65.0 % GLUCOSE-STAT [id number] 12:00:00 Test Item Value Reference Range Comments GLUCOSE RANDOM (BEAKER) (test zloh=613) 140 mg/dL 70-110 HGB/HCT (H&H) - STAT [id number] 12:00:00 Test Item Value Reference Range Comments HEMOGLOBIN (BEAKER) (test nuxb=099) 10.4 g/dL 13.0-16.8 HEMATOCRIT (BEAKER) (test edfd=864) 31.0 % 40.0-50.0 SODIUM NA-STAT [id number] 12:00:00 Test Item Value Reference Range Comments SODIUM (BEAKER) (test cibl=647) 131 meq/L 135-148 PLATELET AGGREGATION: FUNCTION [id number] 11:08:00 Test Item Value Reference Range Comments WEAK ADP RESULT(BEAKER) (test 76 % 60-91 nozj=7687) PLATELET FUNCTION SCREEN 60-100% indicates normal INTERP (BEAKER) (test platelet function otgk=2815) [id number] (BEAKER) Mari Phelan MD (electronic (test ksoq=4216) signature) PLATELET COUNT AGG (BEAKER) 222 K/CU MM 150-450 (test shfe=6090) for patients on clopidogrel in past two weeksHEMOGLOBIN [id number] 08:57:00 Test Item Value Reference Range Comments HEMOGLOBIN A1C (BEAKER) (test uopu=521) 5.0 % 4.3-6.1 CBC W/PLT COUNT & AUTO [id number] 05:54:00 Test Item Value Reference Range Comments WHITE BLOOD CELL COUNT (BEAKER) (test gfgj=762) 9.9 K/ L 3.5-10.5 RED BLOOD CELL COUNT (BEAKER) (test eagh=093) 4.14 M/ L 4.63-6.08 HEMOGLOBIN (BEAKER) (test hrwo=171) 13.4 GM/DL 13.7-17.5 HEMATOCRIT (BEAKER) (test ebjq=079) 39.0 % 40.1-51.0 MEAN CORPUSCULAR VOLUME (BEAKER) (test evfp=624) 94.2 fL 79.0-92.2 MEAN CORPUSCULAR HEMOGLOBIN (BEAKER) (test 32.4 pg 25.7-32.2 ckwu=543) MEAN CORPUSCULAR HEMOGLOBIN CONC (BEAKER) (test 34.4 GM/DL 32.3-36.5 olca=804) RED CELL DISTRIBUTION WIDTH (BEAKER) (test 14.7 % 11.6-14.4 bcnk=289) PLATELET COUNT (BEAKER) (test pxyc=086) 224 K/CU MM 150-450 MEAN PLATELET VOLUME (BEAKER) (test aggt=561) 11.1 fL 9.4-12.4 NUCLEATED RED BLOOD CELLS (BEAKER) (test 0 /100 WBC 0-0 lchm=051) NEUTROPHILS RELATIVE PERCENT (BEAKER) (test 72 % cmtu=223) LYMPHOCYTES RELATIVE PERCENT (BEAKER) (test 15 % kmqz=839) MONOCYTES RELATIVE PERCENT (BEAKER) (test 11 % mgkj=874) EOSINOPHILS RELATIVE PERCENT (BEAKER) (test 1 % ymlu=793) BASOPHILS RELATIVE PERCENT (BEAKER) (test 0 % sbsa=188) NEUTROPHILS ABSOLUTE COUNT (BEAKER) (test 7.13 K/ L 1.78-5.38 ylbl=692) LYMPHOCYTES ABSOLUTE COUNT (BEAKER) (test 1.49 K/ L 1.32-3.57 uhuh=815) MONOCYTES ABSOLUTE COUNT (BEAKER) (test 1.13 K/ L 0.30-0.82 jlro=373) EOSINOPHILS ABSOLUTE COUNT (BEAKER) (test 0.07 K/ L 0.04-0.54 yofb=814) BASOPHILS ABSOLUTE COUNT (BEAKER) (test 0.02 K/ L 0.01-0.08 qxnr=129) IMMATURE GRANULOCYTES-RELATIVE PERCENT (BEAKER) 0 % 0-1 (test xczl=1232) [id number] 05:37:00 Test Item Value Reference Range Comments PARTIAL THROMBOPLASTIN TIME (BEAKER) (test 56.5 seconds 22.5-36.0 bomb=879) BASIC METABOLIC [id number] 05:33:00 Test Item Value Reference Range Comments SODIUM (BEAKER) (test 141 meq/L 136-145 lxnt=700) POTASSIUM (BEAKER) (test 4.2 meq/L 3.5-5.1 ypse=976) CHLORIDE (BEAKER) (test 104 meq/L 98-107 uefg=866) CO2 (BEAKER) (test 28 meq/L 22-29 njem=331) BLOOD UREA NITROGEN 10 mg/dL 7-21 (BEAKER) (test yvid=832) CREATININE (BEAKER) (test 0.69 mg/dL 0.57-1.25 nqru=018) GLUCOSE RANDOM (BEAKER) 127 mg/dL 70-105 (test xrix=078) CALCIUM (BEAKER) (test 9.3 mg/dL 8.4-10.2 pagb=608) EGFR (BEAKER) (test 114 mL/min/1.73 sq m ESTIMATED GFR IS NOT jolp=4372) ACCURATE CREATININE CLEARANCE IN PREDICTING GLOMERULAR FILTRATION RATE. ESTIMATED GFR IS NOT APPLICABLE FOR DIALYSIS PATIENTS. PROTHROMBIN TIME/[id number] 05:33:00 Test Item Value Reference Range Comments PROTIME (BEAKER) (test yina=438) 13.3 seconds 11.7-14.7 INR (BEAKER) (test jhqq=378) 1.0 <=5.9 RECOMMENDED COUMADIN/WARFARIN INR THERAPY RANGESSTANDARD DOSE: 2.0 - 3.0 Includes: PROPHYLAXIS forvenous thrombosis, systemic embolization; TREATMENT for venous thrombosis and/or pulmonary embolus.HIGH RISK: Target INR is 2.5-3.5 for patients with mechanical heart valves.[id number] 19:22:00 Test Item Value Reference Range Comments PARTIAL THROMBOPLASTIN TIME (BEAKER) (test 37.4 seconds 22.5-36.0 ppps=780) PROTHROMBIN [id number] 19:21:00 Test Item Value Reference Range Comments PROTIME (BEAKER) (test jslj=586) 12.8 seconds 11.7-14.7 INR (BEAKER) (test jlpd=027) 1.0 <=5.9 RECOMMENDED COUMADIN/WARFARIN INR THERAPY RANGESSTANDARD DOSE: 2.0 - 3.0 Includes: PROPHYLAXIS forvenous thrombosis, systemic embolization; TREATMENT for venous thrombosis and/or pulmonary embolus.HIGH RISK: Target INR is 2.5-3.5 for patients with mechanical heart valves.[id number] 11:49:00 Test Item Value Reference Range Comments PARTIAL THROMBOPLASTIN TIME (BEAKER) (test 34.7 seconds 22.5-36.0 gdgo=782) Prior to initiating heparinPLATELET [id number] 11:31:00 Test Item Value Reference Range Comments PLATELET COUNT (BEAKER) (test eytq=956) 199 K/CU MM 150-450 PLATELET AGGREGATION: FUNCTION [id number] 11:12:00 Test Item Value Reference Range Comments WEAK ADP RESULT(BEAKER) (test 90 % 60-91 ufdy=6537) PLATELET FUNCTION SCREEN 60-100% indicates normal INTERP (BEAKER) (test platelet function lriv=7320) [id number] ([facility]) Mari Phelan MD (electronic (test srkj=5331) signature) PLATELET COUNT AGG (BEAKER) 200 K/CU MM 150-450 (test oqck=3879) HEMOGLOBIN [id number] 08:38:00 Test Item Value Reference Range Comments HEMOGLOBIN A1C (MARLEEN) (test qzoc=562) 5.5 % 4.3-6.1 TROPONIN [id number] 08:35:00 Test Item Value Reference Range Comments TROPONIN I (MARLEEN) (test lbxw=349) 0.40 ng/mL 0.00-0.03 Effective 03/02/2014: Reference Range ChangeNew: 0.00-0.03 Previous 0.00- 0.15Troponin I (TnI) levels must be interpreted in the context of the presenting symptoms and the clinical findings. Elevated TnI levels indicate myocardial damage, but are not specific for ischemic heart disease. Elevated TnI levels are seen in patients with other cardiac conditions (including myocarditis and congestive heartfailure), and slight TnI elevations occur in patients with other conditions, including sepsis, renalfailure, acidosis, acute neurological disease, and persistent tachyarrhythmia.CREATINE KINASE (CK), TOTAL AND [id number] 08:27:00 Test Item Value Reference Range Comments CREATINE KINASE TOTAL (MARLEEN) (test tmrz=754) 39 U/L 29-200 CREATINE KINASE-MB (BEAKER) (test qjwa=904) 1.6 ng/mL 0.0-6.6 CREATINE KINASE-MB INDEX (BEAKER) (test jzng=055) 4.1 % Effective 03/02/2014: CK-MB Reference Range ChangeNew: 0.0-6.6 Previous: 0.0- 4.9CK-MB Reference Range:<6.7 Normal6.7-10.0 Borderline>10.0 AbnormalPOCT-GLUCOSE [id number] 08:23:00 Test Item Value Reference Range Comments POC-GLUCOSE METER (MARLEEN) 104 mg/dL 70-110 TESTED AT [address] (test qzxe=5212) [place] [address] PROTHROMBIN [id number] 04:32:00 Test Item Value Reference Range Comments PROTIME (BEAKER) (test afys=452) 13.5 seconds 11.7-14.7 INR (BEAKER) (test mfjv=684) 1.0 <=5.9 RECOMMENDED COUMADIN/WARFARIN INR THERAPY RANGESSTANDARD DOSE: 2.0 - 3.0 Includes: PROPHYLAXIS forvenous thrombosis, systemic embolization; TREATMENT for venous thrombosis and/or pulmonary embolus.HIGH RISK: Target INR is 2.5-3.5 for patients with mechanical heart valves.[id number] 02:13:00 Test Item Value Reference Range Comments PHOSPHORUS (BEAKER) (test rvzr=071) 3.9 mg/dL 2.3-4.7 [id number] 02:13:00 Test Item Value Reference Range Comments MAGNESIUM (BEAKER) (test mvan=543) 2.1 mg/dL 1.6-2.6 BASIC METABOLIC [id number] 02:13:00 Test Item Value Reference Range Comments SODIUM (BEAKER) (test 141 meq/L 136-145 gmpz=943) POTASSIUM (BEAKER) (test 4.3 meq/L 3.5-5.1 vrrc=720) CHLORIDE (BEAKER) (test 104 meq/L 98-107 fbcy=362) CO2 (BEAKER) (test 28 meq/L 22-29 srhn=935) BLOOD UREA NITROGEN 8 mg/dL 7-21 (BEAKER) (test qvgh=688) CREATININE (BEAKER) (test 0.67 mg/dL 0.57-1.25 gljw=290) GLUCOSE RANDOM (BEAKER) 98 mg/dL 70-105 (test pawp=907) CALCIUM (BEAKER) (test 9.2 mg/dL 8.4-10.2 ixkh=326) EGFR (BEAKER) (test 118 mL/min/1.73 sq m ESTIMATED GFR IS NOT udsd=2562) ACCURATE CREATININE CLEARANCE IN PREDICTING GLOMERULAR FILTRATION RATE. ESTIMATED GFR IS NOT APPLICABLE FOR DIALYSIS PATIENTS. CBC W/PLT COUNT & AUTO [id number] 01:44:00 Test Item Value Reference Range Comments WHITE BLOOD CELL COUNT (BEAKER) (test atvx=816) 8.1 K/ L 3.5-10.5 RED BLOOD CELL COUNT (BEAKER) (test zdpt=195) 3.92 M/ L 4.63-6.08 HEMOGLOBIN (BEAKER) (test arto=513) 12.6 GM/DL 13.7-17.5 HEMATOCRIT (BEAKER) (test wynv=758) 37.3 % 40.1-51.0 MEAN CORPUSCULAR VOLUME (BEAKER) (test ownw=879) 95.2 fL 79.0-92.2 MEAN CORPUSCULAR HEMOGLOBIN (BEAKER) (test 32.1 pg 25.7-32.2 laiw=532) MEAN CORPUSCULAR HEMOGLOBIN CONC (BEAKER) (test 33.8 GM/DL 32.3-36.5 zibh=491) RED CELL DISTRIBUTION WIDTH (BEAKER) (test 15.2 % 11.6-14.4 gwpl=983) PLATELET COUNT (BEAKER) (test lnyb=955) 207 K/CU MM 150-450 MEAN PLATELET VOLUME (BEAKER) (test silp=725) 10.8 fL 9.4-12.4 NUCLEATED RED BLOOD CELLS (BEAKER) (test 0 /100 WBC 0-0 uhgw=061) NEUTROPHILS RELATIVE PERCENT (BEAKER) (test 51 % rgeg=378) LYMPHOCYTES RELATIVE PERCENT (BEAKER) (test 30 % euhk=735) MONOCYTES RELATIVE PERCENT (BEAKER) (test 17 % kene=160) EOSINOPHILS RELATIVE PERCENT (BEAKER) (test 2 % wnmg=363) BASOPHILS RELATIVE PERCENT (BEAKER) (test 0 % xsnl=700) NEUTROPHILS ABSOLUTE COUNT (BEAKER) (test 4.09 K/ L 1.78-5.38 bijg=782) LYMPHOCYTES ABSOLUTE COUNT (BEAKER) (test 2.38 K/ L 1.32-3.57 vtvj=496) MONOCYTES ABSOLUTE COUNT (BEAKER) (test 1.34 K/ L 0.30-0.82 laqy=646) EOSINOPHILS ABSOLUTE COUNT (BEAKER) (test 0.19 K/ L 0.04-0.54 gzhw=419) BASOPHILS ABSOLUTE COUNT (BEAKER) (test 0.03 K/ L 0.01-0.08 moso=603) IMMATURE GRANULOCYTES-RELATIVE PERCENT (BEAKER) 0 % 0-1 (test ezav=7014) [id number] 01:31:00 Test Item Value Reference Range Comments PROTIME (BEAKER) (test pgol=365) 13.1 seconds 11.7-14.7 INR (BEAKER) (test uyrx=862) 1.0 <=5.9 PARTIAL THROMBOPLASTIN TIME (BEAKER) (test 35.3 seconds 22.5-36.0 kmfx=449) RECOMMENDED COUMADIN/WARFARIN INR THERAPY RANGESSTANDARD DOSE: 2.0 - 3.0 Includes: PROPHYLAXIS forvenous thrombosis, systemic embolization; TREATMENT for venous thrombosis and/or pulmonary embolus.HIGH RISK: Target INR is 2.5-3.5 for patients with mechanical heart valves.TROPONIN [id number] 00:46:00 Test Item Value Reference Range Comments TROPONIN I (BEAKER) (test cmqd=560) 0.51 ng/mL 0.00-0.03 Effective 03/02/2014: Reference Range ChangeNew: 0.00-0.03 Previous 0.00- 0.15Troponin I (TnI) levels must be interpreted in the context of the presenting symptoms and the clinical findings. Elevated TnI levels indicate myocardial damage, but are not specific for ischemic heart disease. Elevated TnI levels are seen in patients with other cardiac conditions (including myocarditis and congestive heartfailure), and slight TnI elevations occur in patients with other conditions, including sepsis, renalfailure, acidosis, acute neurological disease, and persistent tachyarrhythmia.CREATINE KINASE (CK), TOTAL AND [id number] 00:34:00 Test Item Value Reference Range Comments CREATINE KINASE TOTAL (BEAKER) (test uxhh=695) 44 U/L 29-200 CREATINE KINASE-MB (BEAKER) (test nspk=489) 2.1 ng/mL 0.0-6.6 CREATINE KINASE-MB INDEX (BEAKER) (test whmc=105) 4.8 % Effective 03/02/2014: CK-MB Reference Range ChangeNew: 0.0-6.6 Previous: 0.0- 4.9CK-MB Reference Range:<6.7 Normal6.7-10.0 Borderline>10.0 [id number] 06:58:00 Test Item Value Reference Range Comments PHOSPHORUS (BEAKER) (test yqyy=677) 3.7 mg/dL 2.3-4.7 [id number] 06:58:00 Test Item Value Reference Range Comments MAGNESIUM (BEAKER) (test nzop=175) 1.9 mg/dL 1.6-2.6 BASIC METABOLIC [id number] 06:58:00 Test Item Value Reference Range Comments SODIUM (BEAKER) (test 139 meq/L 136-145 azic=812) POTASSIUM (BEAKER) (test 4.1 meq/L 3.5-5.1 awhc=412) CHLORIDE (BEAKER) (test 106 meq/L 98-107 vmkc=600) CO2 (BEAKER) (test 24 meq/L 22-29 mltp=335) BLOOD UREA NITROGEN 12 mg/dL 7-21 (BEAKER) (test nsbs=451) CREATININE (BEAKER) (test 0.67 mg/dL 0.57-1.25 oukl=968) GLUCOSE RANDOM (BEAKER) 82 mg/dL 70-105 (test bujb=358) CALCIUM (BEAKER) (test 8.7 mg/dL 8.4-10.2 frgi=205) EGFR (BEAKER) (test 118 mL/min/1.73 sq m ESTIMATED GFR IS NOT qirn=1908) ACCURATE CREATININE CLEARANCE IN PREDICTING GLOMERULAR FILTRATION RATE. ESTIMATED GFR IS NOT APPLICABLE FOR DIALYSIS PATIENTS. [id number] 06:36:00 Test Item Value Reference Range Comments PHOSPHORUS (BEAKER) (test fsrx=420) 4.1 mg/dL 2.3-4.7 [id number] 06:36:00 Test Item Value Reference Range Comments MAGNESIUM (BEAKER) (test cokm=509) 2.0 mg/dL 1.6-2.6 BASIC METABOLIC [id number] 06:36:00 Test Item Value Reference Range Comments SODIUM (BEAKER) (test 140 meq/L 136-145 sowv=537) POTASSIUM (BEAKER) (test 4.3 meq/L 3.5-5.1 xghx=453) CHLORIDE (BEAKER) (test 107 meq/L 98-107 ketn=645) CO2 (BEAKER) (test 24 meq/L 22-29 lxyn=943) BLOOD UREA NITROGEN 10 mg/dL 7-21 (BEAKER) (test qqwv=088) CREATININE (BEAKER) (test 0.64 mg/dL 0.57-1.25 etbt=498) GLUCOSE RANDOM (BEAKER) 78 mg/dL 70-105 (test yhfl=961) CALCIUM (BEAKER) (test 9.1 mg/dL 8.4-10.2 gkll=993) EGFR (BEAKER) (test 125 mL/min/1.73 sq m ESTIMATED GFR IS NOT nzhm=7722) ACCURATE CREATININE CLEARANCE IN PREDICTING GLOMERULAR FILTRATION RATE. ESTIMATED GFR IS NOT APPLICABLE FOR DIALYSIS PATIENTS. [id number] 15:50:00 Test Item Value Reference Range Comments RPR SCREEN (BEAKER) (test kdqh=078) Nonreactive Nonreactive HEMOGLOBIN [id number] 10:29:00 Test Item Value Reference Range Comments HEMOGLOBIN A1C (BEAKER) (test hieq=464) 5.4 % 4.3-6.1 VITAMIN B12 AND [id number] 09:21:00 Test Item Value Reference Range Comments VITAMIN B12 (BEAKER) (test aaie=330) 335 pg/mL 213-816 FOLATE (BEAKER) (test kwou=538) 36.6 ng/mL >=7.0 Effective 03/02/2014: Folate Reference Range ChangeNew: >=7.0 Previous: & gt;=5.4CBC W/PLT COUNT & AUTO [id number] 08:15:00 Test Item Value Reference Range Comments WHITE BLOOD CELL COUNT (BEAKER) (test gldj=514) 7.2 K/ L 4.0-10.0 RED BLOOD CELL COUNT (BEAKER) (test zhsv=861) 4.30 M/ L 4.20-5.80 HEMOGLOBIN (BEAKER) (test lzyh=876) 14.0 GM/DL 13.0-16.8 HEMATOCRIT (BEAKER) (test fhng=664) 42.7 % 40.0-50.0 MEAN CORPUSCULAR VOLUME (BEAKER) (test viea=155) 99.3 fL 82.0-98.0 MEAN CORPUSCULAR HEMOGLOBIN (BEAKER) (test 32.6 pg 27.0-33.0 irgi=872) MEAN CORPUSCULAR HEMOGLOBIN CONC (BEAKER) (test 32.9 GM/DL 32.0-36.0 wxlh=073) RED CELL DISTRIBUTION WIDTH (BEAKER) (test 15.3 % 10.3-14.2 cxek=413) PLATELET COUNT (BEAKER) (test dwyr=413) 217 K/CU MM 150-430 MEAN PLATELET VOLUME (BEAKER) (test pxcu=580) 8.2 fL 6.5-10.5 NUCLEATED RED BLOOD CELLS (BEAKER) (test 0 /100 WBC 0-0 zzrc=371) NEUTROPHILS RELATIVE PERCENT (BEAKER) (test 48 % bizj=250) LYMPHOCYTES RELATIVE PERCENT (BEAKER) (test 38 % gjlc=416) MONOCYTES RELATIVE PERCENT (BEAKER) (test 12 % jaae=446) EOSINOPHILS RELATIVE PERCENT (BEAKER) (test 2 % wjrh=339) BASOPHILS RELATIVE PERCENT (BEAKER) (test 1 % zlmr=909) NEUTROPHILS ABSOLUTE COUNT (BEAKER) (test 3.42 K/ L 1.80-8.00 dvlf=665) LYMPHOCYTES ABSOLUTE COUNT (BEAKER) (test 2.70 K/ L 1.48-4.50 sokr=234) MONOCYTES ABSOLUTE COUNT (BEAKER) (test 0.82 K/ L 0.00-1.30 ivea=022) EOSINOPHILS ABSOLUTE COUNT (BEAKER) (test 0.17 K/ L 0.00-0.50 zeko=671) BASOPHILS ABSOLUTE COUNT (BEAKER) (test 0.05 K/ L 0.00-0.20 ryff=369) 0.00TSH/FREE T4 IF [id number] 08:00:00 Test Item Value Reference Range Comments THYROID STIMULATING HORMONE (BEAKER) (test 1.39 uIU/mL 0.35-4.94 ydrm=580) BASIC METABOLIC [id number] 07:26:00 Test Item Value Reference Range Comments SODIUM (BEAKER) (test 140 meq/L 136-145 zlqr=493) POTASSIUM (BEAKER) (test 4.4 meq/L 3.5-5.1 Specimen slightly wzqi=740) hemolyzed CHLORIDE (BEAKER) (test 110 meq/L 98-107 didu=848) CO2 (BEAKER) (test 21 meq/L 22-29 ifuv=152) BLOOD UREA NITROGEN 8 mg/dL 7-21 (BEAKER) (test eidb=498) CREATININE (BEAKER) 0.65 mg/dL 0.57-1.25 Specimen slightly (test kfwj=125) hemolyzed GLUCOSE RANDOM (BEAKER) 85 mg/dL 70-105 (test xtdz=248) CALCIUM (BEAKER) (test 9.0 mg/dL 8.4-10.2 lzbq=069) EGFR (BEAKER) (test 123 mL/min/1.73 sq INSUFFICIENT CLINICAL DATA pjjd=4356) m TO CALCULATE ESTIMATED GFR. LIPID [id number] 07:26:00 Test Item Value Reference Range Comments TRIGLYCERIDES (BEAKER) (test 102 mg/dL Specimen slightly hemolyzed wiuk=765) CHOLESTEROL (BEAKER) (test 181 mg/dL Specimen slightly hemolyzed flph=546) HDL CHOLESTEROL (BEAKER) (test 30 mg/dL ygkd=474) LDL CHOLESTEROL CALCULATED 131 mg/dL (BEAKER) (test didh=847) Triglyceride Reference Range: Low Risk <150 Borderline 150- 199 High Risk 200-499 Very High Risk >=500Cholesterol Reference Range: Low Risk <200 Borderline 200-239 High Risk > 240HDL Cholesterol Reference Range: Low Risk >=60 High Risk <40LDL Cholesterol Reference Range: Optimal <100 Near Optimal 100-129 Borderline 130-159 High 160-189 Very High >=[id number] 07:25:00 Test Item Value Reference Range Comments PHOSPHORUS (BEAKER) (test trng=125) 3.8 mg/dL 2.3-4.7 [id number] 07:25:00 Test Item Value Reference Range Comments MAGNESIUM (BEAKER) (test ajza=023) 2.0 mg/dL 1.6-2.6 URINALYSIS W/ [id number] 19:16:00 Test Item Value Reference Range Comments COLOR (BEAKER) (test viev=894) Light Yellow CLARITY (BEAKER) (test zzrb=857) Clear SPECIFIC GRAVITY UA (BEAKER) (test jjdc=205) 1.007 1.001-1.035 PH UA (BEAKER) (test wprl=010) 6.5 5.0-8.0 PROTEIN UA (BEAKER) (test vjts=733) Negative Negative GLUCOSE UA (BEAKER) (test ehmk=869) Negative Negative KETONES UA (BEAKER) (test krqp=259) Negative Negative BILIRUBIN UA (BEAKER) (test jkrg=876) Negative Negative BLOOD UA (BEAKER) (test bhsr=083) Negative Negative NITRITE UA (BEAKER) (test rzmp=048) Negative Negative LEUKOCYTE ESTERASE UA (BEAKER) (test mhis=857) Negative Negative UROBILINOGEN UA (BEAKER) (test jlyn=400) 0.2 mg/dL 0.2-1.0 RBC UA (BEAKER) (test gywu=284) 1 /HPF WBC UA (BEAKER) (test fubq=706) < /HPF SOURCE(BEAKER) (test sldp=3451) Urine, Voided BLOOD [id number] 11:00:00 Test Item Value Reference Range Comments CULTURE (BEAKER) (test monx=0453) No growth in 5 days BLOOD [id number] 11:00:00 Test Item Value Reference Range Comments CULTURE (BEAKER) (test wojz=4141) No growth in 5 days BASIC METABOLIC [id number] 05:33:00 Test Item Value Reference Range Comments SODIUM (BEAKER) (test 137 meq/L 136-145 awzz=787) POTASSIUM (BEAKER) (test 4.6 meq/L 3.5-5.1 btks=128) CHLORIDE (BEAKER) (test 104 meq/L 98-107 iyvq=033) CO2 (BEAKER) (test 22 meq/L 22-29 yhnk=588) BLOOD UREA NITROGEN 4 mg/dL 7-21 (BEAKER) (test qfgp=060) CREATININE (BEAKER) 0.61 mg/dL 0.57-1.25 (test pbas=200) GLUCOSE RANDOM (BEAKER) 84 mg/dL 70-105 (test xhgi=075) CALCIUM (BEAKER) (test 9.1 mg/dL 8.4-10.2 bcjp=508) EGFR (BEAKER) (test 132 mL/min/1.73 sq INSUFFICIENT CLINICAL DATA xbab=1826) m TO CALCULATE ESTIMATED GFR. CBC W/PLT COUNT & AUTO [id number] 05:04:00 Test Item Value Reference Range Comments WHITE BLOOD CELL COUNT (BEAKER) (test ssxo=999) 9.4 K/ L 4.0-10.0 RED BLOOD CELL COUNT (BEAKER) (test hjvb=643) 4.10 M/ L 4.20-5.80 HEMOGLOBIN (BEAKER) (test hwdc=039) 13.8 GM/DL 13.0-16.8 HEMATOCRIT (BEAKER) (test hqjy=565) 40.7 % 40.0-50.0 MEAN CORPUSCULAR VOLUME (BEAKER) (test ddck=133) 99.3 fL 82.0-98.0 MEAN CORPUSCULAR HEMOGLOBIN (BEAKER) (test 33.7 pg 27.0-33.0 jrrg=103) MEAN CORPUSCULAR HEMOGLOBIN CONC (BEAKER) (test 33.9 GM/DL 32.0-36.0 hmby=409) RED CELL DISTRIBUTION WIDTH (BEAKER) (test 13.7 % 10.3-14.2 ctpo=835) PLATELET COUNT (BEAKER) (test quna=472) 224 K/CU MM 150-430 MEAN PLATELET VOLUME (BEAKER) (test kdfs=672) 7.4 fL 6.5-10.5 NUCLEATED RED BLOOD CELLS (BEAKER) (test 0 /100 WBC 0-0 kusn=941) NEUTROPHILS RELATIVE PERCENT (BEAKER) (test 69 % zmrc=431) LYMPHOCYTES RELATIVE PERCENT (BEAKER) (test 18 % dsrx=790) MONOCYTES RELATIVE PERCENT (BEAKER) (test 12 % mkdz=090) EOSINOPHILS RELATIVE PERCENT (BEAKER) (test 1 % pzqw=476) BASOPHILS RELATIVE PERCENT (BEAKER) (test 0 % pmof=985) NEUTROPHILS ABSOLUTE COUNT (BEAKER) (test 6.44 K/ L 1.80-8.00 aumg=697) LYMPHOCYTES ABSOLUTE COUNT (BEAKER) (test 1.69 K/ L 1.48-4.50 uncn=844) MONOCYTES ABSOLUTE COUNT (BEAKER) (test 1.16 K/ L 0.00-1.30 ypkx=612) EOSINOPHILS ABSOLUTE COUNT (BEAKER) (test 0.05 K/ L 0.00-0.50 mell=621) BASOPHILS ABSOLUTE COUNT (BEAKER) (test 0.04 K/ L 0.00-0.20 tlqx=079) 0.00VANCOMYCIN LEVEL, [id number] 21:36:00 Test Item Value Reference Range Comments VANCOMYCIN TROUGH (BEAKER) (test cnrv=103) 9.5 ug/mL 10.0-20.0 Please draw prior to 4th vancomycin doseVITAMIN B12 AND [id number] 04:33: 00 Test Item Value Reference Range Comments VITAMIN B12 (BEAKER) (test iikx=163) 599 pg/mL 213-816 FOLATE (BEAKER) (test uiij=851) 7.7 ng/mL >=7.0 Effective 03/02/2014: Folate Reference Range ChangeNew: >=7.0 Previous: & gt;=5.4HEPATIC FUNCTION [id number] 03:58:00 Test Item Value Reference Range Comments TOTAL PROTEIN (BEAKER) (test geji=455) 6.7 gm/dL 6.0-8.3 ALBUMIN (BEAKER) (test zykj=9075) 3.3 g/dL 3.5-5.0 BILIRUBIN TOTAL (BEAKER) (test dyri=594) 0.4 mg/dL 0.2-1.2 BILIRUBIN DIRECT (BEAKER) (test xcsj=023) 0.2 mg/dL 0.1-0.5 ALKALINE PHOSPHATASE (BEAKER) (test sxzc=895) 67 U/L 40-150 AST (SGOT) (BEAKER) (test suvp=907) 10 U/L 5-34 ALT (SGPT) (BEAKER) (test yory=235) 12 U/L 6-55 BASIC METABOLIC [id number] 03:58:00 Test Item Value Reference Range Comments SODIUM (BEAKER) (test 139 meq/L 136-145 tdvb=260) POTASSIUM (BEAKER) (test 4.0 meq/L 3.5-5.1 wflc=668) CHLORIDE (BEAKER) (test 103 meq/L 98-107 jcpr=625) CO2 (BEAKER) (test 24 meq/L 22-29 qvvb=260) BLOOD UREA NITROGEN 7 mg/dL 7-21 (BEAKER) (test dlji=148) CREATININE (BEAKER) 0.58 mg/dL 0.57-1.25 (test grhs=215) GLUCOSE RANDOM (BEAKER) 87 mg/dL 70-105 (test nguj=630) CALCIUM (BEAKER) (test 9.3 mg/dL 8.4-10.2 enar=432) EGFR (BEAKER) (test 140 mL/min/1.73 sq INSUFFICIENT CLINICAL DATA vkhx=8560) m TO CALCULATE ESTIMATED GFR. CBC W/PLT COUNT & AUTO [id number] 03:45:00 Test Item Value Reference Range Comments WHITE BLOOD CELL COUNT (BEAKER) (test bclr=792) 7.5 K/ L 4.0-10.0 RED BLOOD CELL COUNT (BEAKER) (test gcak=399) 3.88 M/ L 4.20-5.80 HEMOGLOBIN (BEAKER) (test jfzs=456) 13.5 GM/DL 13.0-16.8 HEMATOCRIT (BEAKER) (test ydgn=911) 38.4 % 40.0-50.0 MEAN CORPUSCULAR VOLUME (BEAKER) (test lpml=860) 99.0 fL 82.0-98.0 MEAN CORPUSCULAR HEMOGLOBIN (BEAKER) (test 34.8 pg 27.0-33.0 lvsl=532) MEAN CORPUSCULAR HEMOGLOBIN CONC (BEAKER) (test 35.1 GM/DL 32.0-36.0 smlk=393) RED CELL DISTRIBUTION WIDTH (BEAKER) (test 13.1 % 10.3-14.2 aels=149) PLATELET COUNT (BEAKER) (test easf=007) 204 K/CU MM 150-430 MEAN PLATELET VOLUME (BEAKER) (test gqso=449) 7.7 fL 6.5-10.5 NUCLEATED RED BLOOD CELLS (BEAKER) (test 0 /100 WBC 0-0 dsag=029) NEUTROPHILS RELATIVE PERCENT (BEAKER) (test 54 % qsek=274) LYMPHOCYTES RELATIVE PERCENT (BEAKER) (test 30 % imzd=727) MONOCYTES RELATIVE PERCENT (BEAKER) (test 14 % vprt=733) EOSINOPHILS RELATIVE PERCENT (BEAKER) (test 2 % hvtr=940) BASOPHILS RELATIVE PERCENT (BEAKER) (test 0 % ioyg=339) NEUTROPHILS ABSOLUTE COUNT (BEAKER) (test 4.09 K/ L 1.80-8.00 pzpi=464) LYMPHOCYTES ABSOLUTE COUNT (BEAKER) (test 2.23 K/ L 1.48-4.50 nzxq=041) MONOCYTES ABSOLUTE COUNT (BEAKER) (test 1.05 K/ L 0.00-1.30 nmjr=184) EOSINOPHILS ABSOLUTE COUNT (BEAKER) (test 0.13 K/ L 0.00-0.50 ovwz=311) BASOPHILS ABSOLUTE COUNT (BEAKER) (test 0.03 K/ L 0.00-0.20 mghb=530) [id number] 03:18:00 Test Item Value Reference Range Comments PARTIAL THROMBOPLASTIN TIME (BEAKER) (test 42.6 seconds 22.5-36.0 aqdo=705) PROTHROMBIN [id number] 03:17:00 Test Item Value Reference Range Comments PROTIME (BEAKER) (test ulhp=312) 13.0 seconds 11.7-14.7 INR (BEAKER) (test rbcz=068) 1.0 <=5.9 RECOMMENDED COUMADIN/WARFARIN INR THERAPY RANGESSTANDARD DOSE: 2.0 - 3.0 Includes: PROPHYLAXIS forvenous thrombosis, systemic embolization; TREATMENT for venous thrombosis and/or pulmonary embolus.HIGH RISK: Target INR is 2.5-3.5 for patients with mechanical heart valves.BASIC METABOLIC [id number] 02:48: 00 Test Item Value Reference Range Comments SODIUM (BEAKER) (test 136 meq/L 136-145 licy=543) POTASSIUM (BEAKER) (test 4.2 meq/L 3.5-5.1 lcxp=073) CHLORIDE (BEAKER) (test 101 meq/L 98-107 sgjk=405) CO2 (BEAKER) (test 22 meq/L 22-29 ieps=129) BLOOD UREA NITROGEN 7 mg/dL 7-21 (BEAKER) (test uzdw=304) CREATININE (BEAKER) 0.66 mg/dL 0.57-1.25 (test jfnz=214) GLUCOSE RANDOM (BEAKER) 86 mg/dL 70-105 (test llgy=863) CALCIUM (BEAKER) (test 10.1 mg/dL 8.4-10.2 lorf=772) EGFR (BEAKER) (test 120 mL/min/1.73 sq INSUFFICIENT CLINICAL DATA bdlx=5691) m TO CALCULATE ESTIMATED GFR. CBC W/PLT COUNT & AUTO [id number] 02:47:00 Test Item Value Reference Range Comments WHITE BLOOD CELL COUNT (BEAKER) (test nrqi=956) 13.9 K/ L 4.0-10.0 RED BLOOD CELL COUNT (BEAKER) (test eepn=816) 4.54 M/ L 4.20-5.80 HEMOGLOBIN (BEAKER) (test mopz=625) 15.2 GM/DL 13.0-16.8 HEMATOCRIT (BEAKER) (test ybem=952) 45.1 % 40.0-50.0 MEAN CORPUSCULAR VOLUME (BEAKER) (test fpfj=562) 99.4 fL 82.0-98.0 MEAN CORPUSCULAR HEMOGLOBIN (BEAKER) (test 33.4 pg 27.0-33.0 rdqt=996) MEAN CORPUSCULAR HEMOGLOBIN CONC (BEAKER) (test 33.6 GM/DL 32.0-36.0 qsgr=008) RED CELL DISTRIBUTION WIDTH (BEAKER) (test 13.2 % 10.3-14.2 bakx=513) PLATELET COUNT (BEAKER) (test wogv=610) 230 K/CU MM 150-430 MEAN PLATELET VOLUME (BEAKER) (test guwl=685) 8.1 fL 6.5-10.5 NUCLEATED RED BLOOD CELLS (BEAKER) (test 0 /100 WBC 0-0 sxhv=120) NEUTROPHILS RELATIVE PERCENT (BEAKER) (test 71 % qewh=826) LYMPHOCYTES RELATIVE PERCENT (BEAKER) (test 16 % iijg=618) MONOCYTES RELATIVE PERCENT (BEAKER) (test 12 % rola=508) EOSINOPHILS RELATIVE PERCENT (BEAKER) (test 0 % enrj=613) BASOPHILS RELATIVE PERCENT (BEAKER) (test 0 % ijeo=878) NEUTROPHILS ABSOLUTE COUNT (BEAKER) (test 9.86 K/ L 1.80-8.00 osqk=781) LYMPHOCYTES ABSOLUTE COUNT (BEAKER) (test 2.22 K/ L 1.48-4.50 huuq=523) MONOCYTES ABSOLUTE COUNT (BEAKER) (test 1.72 K/ L 0.00-1.30 tzpz=994) EOSINOPHILS ABSOLUTE COUNT (BEAKER) (test 0.04 K/ L 0.00-0.50 ijwk=229) BASOPHILS ABSOLUTE COUNT (BEAKER) (test 0.02 K/ L 0.00-0.20 bgwl=910) 0.00
[2018-03-02 17:04] LABS: Arterial Blood Carboxyhemoglob 3.8 % (0-1.5); Blood Gas Oxyhemoglobin 90.2 % (94-97); Blood O2 Saturation 94.9 % (92-98.5)
[2018-03-02 17:08] LABS: Absolute Lymphocytes (CBC) 1.8 K/uL (0.7-4.9); Absolute Monocytes 0.6 K/uL (0.1-1.3); Absolute Neutrophil 2.4 K/uL (1.8-8.0); Basophils % 0.7 % (0-1.3); Eosinophils % 1.1 % (0-4.4); Hematocrit 44.9 % (39.6-49.0); Lymphocytes % 37.4 % (15.3-44.8); MCH 32.8 pg (27.0-35.0); MPV 9.6 fL (7.6-11.3); Monocytes % 11.3 % (3.3-12.3); RBC Red Blood Cell Count 4.67 M/uL (4.33-5.43)
[2018-03-02 17:21] LABS: BUN Blood Urea Nitrogen 8 mg/dL (7-18); Bicarbonate 30 mmol/L (21-32); Glucose Level 101 mg/dL (74-106); Potassium 4.5 mmol/L (3.5-5.1); Sodium Level 142 mmol/L (136-145)
[2018-03-02 17:28] LABS: Protime INR 1.48
--- NOTE | 2018-03-02 17:30 | RAD REPORT ---
EXAM DESCRIPTION: CT - Ct Stroke Brain Wo Cont - 03/02/2018 5:13 pm CLINICAL HISTORY: CONFUSED Drowsiness, CVA COMPARISON: Head Brain Wo Cont dated 10/06/2016; Head Brain Wo Cont dated 08/10/2016 TECHNIQUE: All CT scans are performed using dose optimization technique as appropriate and may inclu de automated exposure control or mA/KV adjustment according to patient size. FINDINGS: No intracranial hemorrhage, hydrocephalus or extra-axial fluid collection.No areas of brai n edema or evidence of midline shift. The paranasal sinuses and mastoids are clear. The calvarium is intact. IMPRESSION: No acute intracranial abnormality.
--- NOTE | 2018-03-02 18:02 | RAD REPORT ---
EXAM DESCRIPTION: RAD - Chest Single View - 03/02/2018 5:07 pm CLINICAL HISTORY: MALAISE Chest pain. COMPARISON: Chest Pa And Lat (2 Views) dated 05/06/2017; Chest Single View dated 05/03/2017; Chest Sin gle View dated 01/21/2017; Chest Single View dated 11/25/2016 FINDINGS: Portable technique limits examination quality. The lungs are emphysematous but grossly clear. The heart is upper limit normal size with changes of a prior CABG noted. No displaced fractures. IMPRESSION: COPD.
[2018-03-02 18:14] LABS: Barbiturates NEGATIVE (NEGATIVE); Benzodiazepines NEGATIVE (NEGATIVE); Cocaine NEGATIVE (NEGATIVE); METHAMPHETAM NEGATIVE (NEGATIVE); Methadone NEGATIVE (NEGATIVE); Opiates NEGATIVE (NEGATIVE); Phencyclidine NEGATIVE (NEGATIVE); THC Cannibis NEGATIVE (NEGATIVE)
[2018-03-02 19:00] LABS: Urine Bacteria <20 /HPF (NONE SEEN); Urine Culture Reflex Order NOT NEEDED; Urine RBC 20-50 /HPF (NONE SEEN)
--- NOTE | 2018-03-02 19:21 | RAD REPORT ---
EXAM DESCRIPTION: CTAbdomen Pelvis W Contrast - 03/02/2018 7:00 pm CLINICAL HISTORY: Abdominal pain. PAIN COMPARISON: Abdomen Pelvis W Contrast dated 05/03/2017; CT ABD PELVIS W CONTRAST dated 11/29/2014; C T ABD PELVIS W CONTRAST dated 05/26/2012 TECHNIQUE: Biphasic CT imaging of the abdomen and pelvis was performed with 100 ml non-ionic IV cont rast. All CT scans are performed using dose optimization technique as appropriate and may include automated exposure control or mA/KV adjustment according to patient size. FINDINGS: Mild dependent opacities are present in both lung bases. The liver, spleen, pancreas, adrenal glands and kidneys are within normal limits. No bowel obstruction, free air, free fluid or abscess. Aortic atherosclerosis. The appendix is not id entified as a discrete structure, however, no secondary findings of appendicitis are identified. No evidence of significant lymphadenopathy. Postsurgical lower lumbar spine. IMPRESSION: No acute intra-abdominal or pelvic finding.
--- NOTE | 2018-03-02 20:20 | EKG ---
Test Date: 2018-03-02 Test Time: 16:21:09 Glassie: MEASUREMENT RESULTS: Intervals: Rate: 62 MA: 178 QRSD: 88 QT: 408 QTc: 414 Fred: P: 77 MA: 178 QRS: -12 T: 51 INTERPRETIVE STATEMENTS: Normal sinus rhythm Normal ECG Compared to ECG 05/03/2017 10:49:12 No significant changes Electronically Signed On 03-02-18 20:19:38 CLINICAL ADMISSIONS MANAGER by Yasir Collins
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
--- NOTE | 2018-03-02 20:26 | EDPHYS ---
Physician Documentation [facility] Name: Bryan Graf Age: 67 yrs Sex: Male : 1950 Arrival Date: 03/02/2018 Time: 16:30 Bed 3 Private MD: ED Physician Arnulfo Jordan HPI: 03/02 18:38 This 67 yrs old Male presents to ER via EMS with complaints of Unresponsive. gs 18:38 The patient presents with decreased mental status. Onset: The symptoms/episode gs began/occurred at 14:00. Possible causes: CVA or TIA, seizure. Associated signs and symptoms: Pertinent positives: confusion. Current symptoms: In the emergency department the patient's symptoms have improved, markedly. The patient has experienced similar episodes in the past, a few times. Historical: - Allergies: 16:36 Aspirin; kr2 16:36 PENICILLINS; kr2 - Home Meds: 16:49 Xarelto 20 mg Oral tab 1 tab once daily [Active]; metronidazole 500 mg Oral tab 1 tab kr2 every 8 hours [Active]; Depakote 500 mg Oral TbEC 1 tab 2 times per day [Active]; Keppra 1,000 mg Oral tab 1 tab every 12 hours [Active]; dicyclomine 20 mg Oral tab 1 tab 4 times per day [Active]; Lomotil 2.5-0.025 mg oral tab 1 tabs every 4-6 hours [Active]; pyridostigmine bromide 60 mg oral tab [Active]; Lyrica Oral [Active]; oxycodone 30 mg Oral tab three times a day [Active]; 19:09 acetaminophen 325 mg Oral tab as needed [Active]; atorvastatin 80 mg Oral tab 1 tab ak1 once daily [Active]; phenytoin sodium extended 100 mg Oral cap 1 cap twice a day [Active]; ropinirole 2 mg Oral tab 1 tab nightly [Active]; - PMHx: 16:36 Chronic pain; Hypertension; CVA; Pneumonia; Seizures; swelling and pain to L lower leg; kr2 - Immunization history:: Adult Immunizations unknown. - Social history:: Smoking status: unknown. - Ebola Screening: : No symptoms or risks identified at this time. ROS: 18:38 All other systems are negative. gs 18:38 Abdomen/GI: Positive for nausea and vomiting, diarrhea, past week saw pcp. gs 20:28 Constitutional: Positive for fatigue, malaise. snw Exam: 18:38 Head/Face: Normocephalic, atraumatic. Eyes: Pupils equal round and reactive to light, gs extra-ocular motions intact. Lids and lashes normal. Conjunctiva and sclera are non-icteric and not injected. Cornea within normal limits. Periorbital areas with no swelling, redness, or edema. ENT: Nares patent. No nasal discharge, no septal abnormalities noted. Tympanic membranes are normal and external auditory canals are clear. Oropharynx with no redness, swelling, or masses, exudates, or evidence of obstruction, uvula midline. Mucous membranes moist. Neck: Trachea midline, no thyromegaly or masses palpated, and no cervical lymphadenopathy. Supple, full range of motion without nuchal rigidity, or vertebral point tenderness. No Meningismus. Chest/axilla: Normal chest wall appearance and motion. Nontender with no deformity. No lesions are appreciated. 18:38 Constitutional: The patient appears lethargic. 18:47 Cardiovascular: Regular rate and rhythm with a normal S1 and S2. No gallops, murmurs, gs or rubs. Normal PMI, no JVD. No pulse deficits. Respiratory: Lungs have equal breath sounds bilaterally, clear to auscultation and percussion. No rales, rhonchi or wheezes noted. No increased work of breathing, no retractions or nasal flaring. Abdomen/GI: Soft, non-tender, with normal bowel sounds. No distension or tympany. No guarding or rebound. No evidence of tenderness throughout. Back: No spinal tenderness. No costovertebral tenderness. Full range of motion. Skin: Warm, dry with normal turgor. Normal color with no rashes, no lesions, and no evidence of cellulitis. MS/ Extremity: Pulses equal, no cyanosis. Neurovascular intact. Full, normal range of motion. 18:47 Neuro: Mentation: confused, Cranial nerves: CN II- XII are normal as tested, Cerebellar function: normal finger to nose testing, Motor: moves all fours, strength is 5/5 in all extremities, Sensation: no obvious gross deficits. 18:47 ECG was reviewed by the Attending Physician. gs 20:28 Radiologist reports: unchanged snw Vital Signs: 16:30 BP 148 / 102; Pulse 65; Resp 15; Pulse Ox 99% on R/A; kr2 17:35 BP 143 / 71; Pulse 60; Resp 16; Temp 98; Pulse Ox 97% ; kr2 19:40 Temp 98(O); jp3 20:32 BP 122 / 68; Pulse 66; Resp 16; Temp 98; Pulse Ox 98% on R/A; ak1 NIH Stroke Scale Scores: 18:47 NIHSS Score: 1 gs MDM: 16:46 Patient medically screened. gs 18:47 Differential Diagnosis: CVA, electrolyte abnormality, alcohol intoxication, overdose, gs seizure, sepsis, TIA, diverticulitis. Data reviewed: vital signs, nurses notes. Response to treatment: the patient's symptoms have markedly improved after treatment. ED course: no tpa, symptoms resolved completely. 19:58 Physician consultation: Carroll Jacobson MD was called at 19:58, regarding consult, snw patient's condition. 20:22 Counseling: I had a detailed discussion with the patient and/or guardian regarding: the snw historical points, exam findings, and any diagnostic results supporting the discharge/admit diagnosis, the presence of at least one elevated blood pressure reading (>120/80) during this emergency department visit, lab results, radiology results, the need for outpatient follow up, for definitive care, a neurologist. Physician consultation: was contacted at 20:15, ashley Chicas and see Dr. Jacobson in clinic this week. 03/02 16:35 Order name: glucometer results - FOR PT WITH NO ID; Complete Time: 18:01 03/02 16:48 Order name: UDS; Complete Time: 18:25 03/02 16:48 Order name: Basic Metabolic Panel; Complete Time: 18:01 03/02 16:48 Order name: CBC with Diff; Complete Time: 18:01 03/02 16:48 Order name: Protime (+inr); Complete Time: 18:01 03/02 16:48 Order name: ETOH Level; Complete Time: 18:01 03/02 16:48 Order name: CT Stroke Brain w/o Contrast; Complete Time: 17:42 03/02 16:48 Order name: Stroke CXR 1 View; Complete Time: 18:14 03/02 16:48 Order name: EKG; Complete Time: 16:49 03/02 16:48 Order name: Accucheck; Complete Time: 16:58 03/02 16:48 Order name: ABG; Complete Time: 18:01 03/02 16:48 Order name: Urine Microscopic Only; Complete Time: 19:06 03/02 18:31 Order name: AMMONIA; Complete Time: 19:48 03/02 18:31 Order name: CT Abd/Pelvis - W/Contrast; Complete Time: 19:25 03/02 16:48 Order name: Cardiac monitoring; Complete Time: 16:57 03/02 16:48 Order name: EKG - Nurse/Tech; Complete Time: 16:57 03/02 16:48 Order name: IV Saline Lock; Complete Time: 16:58 03/02 16:48 Order name: Labs collected and sent; Complete Time: 16:58 03/02 16:48 Order name: NPO; Complete Time: 16:58 03/02 16:48 Order name: O2 Per Protocol; Complete Time: 16:59 03/02 16:48 Order name: O2 Sat Monitoring; Complete Time: 16:59 03/02 16:48 Order name: Stroke Swallow Screen; Complete Time: 20:38 03/02 16:48 Order name: Urine Dipstick-Ancillary (obtain specimen); Complete Time: 18:00 gs EC:47 Rate is 62 beats/min. Rhythm is regular. AR interval is normal. QRS interval is normal. gs T waves are Normal. No ST changes noted. Clinical impression: Normal ECG. Administered Medications: No medications were administered Point of Care Testing: Blood Glucose: 16:34 Blood Glucose: 100 mg/dL; Ranges: Critical Glucose Levels:Adult <50 mg/dl or >400 mg/dl <40 mg/dl or >180 mg/dl Disposition: 03/03 11:14 Co-signature as Attending Physician, Arnulfo Jordan MD. Disposition: 03/02/18 20:25 Discharged to Home. Impression: Adverse effect of medication regimen. - Condition is Stable. - Discharge Instructions: Fatigue. - Medication Reconciliation Form, Thank You Letter, Antibiotic Education, Prescription Opioid Use, SBAR form form. - Follow up: Carroll Jacobson MD; When: 1 - 2 days; Reason: Recheck today's complaints, Continuance of care, Re-evaluation by your physician. - Notes: Please stop Kateyzully. Follow up with Dr. Jacobson this week. NIH Stroke Scale - NIH Stroke Score Date: 03/02/2018 Time: 18:47 Total Score = 1 1a. Level of Consciousness (LOC) - 0(Alert) 1b. Level of Consciousness (LOC) (Year \T\ Age) - 1(One) 1c. LOC Commands (Open \T\ Closes Eyes/[employer]) - 0(Both) 2. Best Gaze (Lateral Gaze Paresis) - 0(Normal) 3. Visual Field Loss - 0(No visual loss) 4. Facial Palsy - 0(Normal) 5a. Left Arm: Motor (10-second hold) - 0(No drift) 5b. Right Arm: Motor (10-second hold) - 0(No drift) 6a. Left Leg: Motor (5-second hold - always test supine) - 0(No drift) 6b. Right Leg: Motor (5-second hold - always test supine) - 0(No drift) 7. Limb Ataxia (finger/nose \T\ heel/arce - test with eyes open) - 0(Absent) 8. Sensory Loss (pinprick arms/legs/face) - 0(Normal) 9. Best Language: Aphasia (description/naming/reading) - 0(No aphasia) 10. Dysarthria (speech clarity - read or repeat words) - 0(Normal) 11. Extinction and Inattention (visual/tactile/auditory/spatial/personal) - 0(No abnormality) Initials: Signatures: Dispatcher [employer] EDMS Albertina Ocampo, PROPERTY MAN-C PROPERTY MAN-Csnw Kia Reid RN RN ak1 Arnulfo Jordan MD MD Maria C Hammer RN RN kr2 Corrections: (The following items were deleted from the chart) 03/02 20:55 20:25 03/02/2018 20:25 Discharged to Home. Impression: Adverse effect of ak1 medication regimen. Condition is Stable. Forms are SBAR form, Medication Reconciliation Form, Thank You Letter, Antibiotic Education, Prescription Opioid Use. Follow up: Carroll Jacobson; When: 1 - 2 days; Reason: Recheck today's complaints, Continuance of care, Re-evaluation by your physician. snw
[2018-03-02 21:25] VITALS: TEMP 98
[2018-03-02 21:27] VITALS: BP 122/68; O2SAT 98
== END 2018-03-02 20:55 | disposition home or self-care (01) ==
LOC: ER 16:24
DX: R41.0 Disorientation, unspecified (principal); T42.6X5A Adverse effect of other antiepileptic and sedative-hypnotic drugs, initial encounter; I10 Essential (primary) hypertension; G40.909 Epilepsy, unspecified, not intractable, without status epilepticus; Z86.73 Personal history of transient ischemic attack (TIA), and cerebral infarction without residual deficits; Z79.01 Long term (current) use of anticoagulants; Z88.0 Allergy status to penicillin; Z88.6 Allergy status to analgesic agent
CPT/HCPCS: 36415; 51702; 70450; 71045; 74177; 80048; 80307 ×8; 80320; 81015; 82140; 82805; 82962; 85025; 85610; 93005; 99285; Q9967

== ENCOUNTER 2018-10-20 02:51 | Emergency (ER) | payer OTHER ==
--- OUTSIDE RECORDS SUMMARY | 2018-10-20 02:53 | XMS REPORT | Clinical Summary ---
:1950 Author Organization [facility] Address [address] [place] [address] Care Team Providers Name Role Phone Botello, [...] fibrillation 10/06/2016 Chronic anticoagulation 10/06/2016 Cellulitis of home care companion space of mouth 07/01/2016 Mandibular abscess 06/30/2016 [...] Not on file Results Not on fileafter 10/19/2017 Insurance Payer Benefit Plan / Group Subscriber ID Type Phone Address MEDICARE MEDICARE A B xxxxxxxxxx Medicare MEDICAID [place]ICA[place] xxxxxxxxx Medicaid (Home) [place] [address] Advance Directives For more information, please contact:[address] [phone] Code Status Date Activated Date Inactivated Comments [...]
--- OUTSIDE RECORDS SUMMARY | 2018-10-20 02:59 | XMS REPORT ---
:1950 [facility] Address [address] [place] [address] Care Team Providers Name Role Phone MIKI [...] Range Comments B-TYPE NATRIURETIC PEPTIDE (BEAKER) (test rity=431) 136 pg/mL 0-100 COMPREHENSIVE METABOLIC [id number] 05:53:00 Test Item Value Reference Range Comments TOTAL PROTEIN (BEAKER) 6.7 gm/dL 6.0-8.3 (test quqo=529) ALBUMIN (BEAKER) (test 3.1 g/dL 3.5-5.0 lueh=6200) ALKALINE PHOSPHATASE 116 U/L 40-150 (BEAKER) (test jofr=627) BILIRUBIN TOTAL (BEAKER) < mg/dL 0.2-1.2 (test etlo=942) SODIUM (BEAKER) (test 141 meq/L 136-145 qkhm=193) POTASSIUM (BEAKER) (test 4.0 meq/L 3.5-5.1 bqdg=502) CHLORIDE (BEAKER) (test 107 meq/L 98-107 qzdb=478) CO2 (BEAKER) (test 25 meq/L 22-29 tkso=701) BLOOD UREA NITROGEN 9 mg/dL 7-21 (BEAKER) (test fgjw=639) CREATININE (BEAKER) (test 0.58 mg/dL 0.57-1.25 hlur=010) GLUCOSE RANDOM (BEAKER) 94 mg/dL 70-105 (test oiij=834) CALCIUM (BEAKER) (test 8.7 mg/dL 8.4-10.2 ibfr=124) AST (SGOT) (BEAKER) (test 67 U/L 5-34 oxac=718) ALT (SGPT) (BEAKER) (test 88 U/L 6-55 dekz=536) EGFR (BEAKER) (test 139 mL/min/1.73 sq ESTIMATED GFR IS NOT ucpf=6183) m ACCURATE CREATININE CLEARANCE IN PREDICTING GLOMERULAR FILTRATION RATE. ESTIMATED GFR IS NOT APPLICABLE FOR DIALYSIS PATIENTS. POCT-GLUCOSE [id number] 16:33:00 Test Item Value Reference Range Comments POC-GLUCOSE METER (BEAKER) 116 mg/dL 70-110 TESTED AT [address] (test undr=5335) [place] [address] POCT-GLUCOSE [id number] 11:08:00 Test Item Value Reference Range Comments POC-GLUCOSE METER (BEAKER) 133 mg/dL 70-110 TESTED AT [address] (test hpev=0413) [place] [address] POCT-GLUCOSE [id number] 06:11:00 Test Item Value Reference Range Comments POC-GLUCOSE METER (BEAKER) 105 mg/dL 70-110 TESTED AT [address] (test bnuz=1370) [place] [address] POCT-GLUCOSE [id number] 20:28:00 Test Item Value Reference Range Comments POC-GLUCOSE METER (BEAKER) 124 mg/dL 70-110 TESTED AT [address] (test fdni=4910) [place] [address] POCT-GLUCOSE [id number] 16:46:00 Test Item Value Reference Range Comments POC-GLUCOSE METER (BEAKER) 113 mg/dL 70-110 TESTED AT [address] (test hazb=2400) [place] [address] POCT-GLUCOSE [id number] 11:46:00 Test Item Value Reference Range Comments POC-GLUCOSE METER (BEAKER) 113 mg/dL 70-110 TESTED AT [address] (test skat=9340) [place] [address] URINE [id number] 09:54:00 Test Item Value Reference Range Comments CULTURE (BEAKER) (test KLEBSIELLA PNEUMONIAE >100,000 col/mL udxj=9397) Klebsiella pneumoniae Amikacin (test code=1) Ampicillin + Sulbactam (test code=6) Aztreonam (test code=32) Cefepime (test code=51) Cefoxitin (test code=68) Ceftazidime (test code=27) Ceftriaxone (test code=52) Ertapenem (test code=38) Gentamicin (test code=18) Levofloxacin (test code=22) Meropenem (test code=34) Nitrofurantoin (test code=23) Piperacillin + Tazobactam (test code=29) Tetracycline (test code=2) Tobramycin (test code=25) Trimethoprim + Sulfamethoxazole (test code=47) POCT-GLUCOSE [id number] 06:46:00 Test Item Value Reference Range Comments POC-GLUCOSE METER (BEAKER) 111 mg/dL 70-110 TESTED AT [address] (test vrow=5326) [place] [id number] POCT-GLUCOSE [id number] 20:48:00 Test Item Value Reference Range Comments POC-GLUCOSE METER (BEAKER) 128 mg/dL 70-110 TESTED AT [address] (test sppz=4753) [place] [id number] POCT-GLUCOSE [id number] 16:00:00 Test Item Value Reference Range Comments POC-GLUCOSE METER (BEAKER) 127 mg/dL 70-110 TESTED AT [address] (test wrfb=7429) [place] [id number] POCT-GLUCOSE [id number] 11:16:00 Test Item Value Reference Range Comments POC-GLUCOSE METER (BEAKER) 273 mg/dL 70-110 TESTED AT [address] (test pces=3662) [place] [id number] COMPREHENSIVE METABOLIC [id number] 06:44:00 Test Item Value Reference Range Comments TOTAL PROTEIN (BEAKER) 6.4 gm/dL 6.0-8.3 (test almm=839) ALBUMIN (BEAKER) (test 2.9 g/dL 3.5-5.0 uzgc=3603) ALKALINE PHOSPHATASE 109 U/L 40-150 (BEAKER) (test tduo=997) BILIRUBIN TOTAL (BEAKER) < mg/dL 0.2-1.2 (test mhry=661) SODIUM (BEAKER) (test 142 meq/L 136-145 yzcj=364) POTASSIUM (BEAKER) (test 4.1 meq/L 3.5-5.1 kpqu=620) CHLORIDE (BEAKER) (test 107 meq/L 98-107 qlqe=634) CO2 (BEAKER) (test 26 meq/L 22-29 vjjb=240) BLOOD UREA NITROGEN 7 mg/dL 7-21 (BEAKER) (test fzef=427) CREATININE (BEAKER) (test 0.56 mg/dL 0.57-1.25 fdwc=679) GLUCOSE RANDOM (BEAKER) 103 mg/dL 70-105 (test vkjc=722) CALCIUM (BEAKER) (test 8.7 mg/dL 8.4-10.2 tjbq=873) AST (SGOT) (BEAKER) (test 42 U/L 5-34 scah=526) ALT (SGPT) (BEAKER) (test 32 U/L 6-55 klfx=047) EGFR (BEAKER) (test 145 mL/min/1.73 sq ESTIMATED GFR IS NOT afrx=3365) m ACCURATE CREATININE CLEARANCE IN PREDICTING GLOMERULAR FILTRATION RATE. ESTIMATED GFR IS NOT APPLICABLE FOR DIALYSIS PATIENTS. [id number] 06:27:00 Test Item Value Reference Range Comments PARTIAL THROMBOPLASTIN TIME (BEAKER) (test 38.5 seconds 22.5-36.0 wihn=108) PROTHROMBIN [id number] 06:26:00 Test Item Value Reference Range Comments PROTIME (BEAKER) (test pxiu=356) 16.3 seconds 11.7-14.7 INR (BEAKER) (test omwd=938) 1.3 <=5.9 RECOMMENDED COUMADIN/WARFARIN INR THERAPY RANGESSTANDARD DOSE: 2.0 - 3.0 Includes: PROPHYLAXIS forvenous thrombosis, systemic embolization; TREATMENT for venous thrombosis and/or pulmonary embolus.HIGH RISK: Target INR is 2.5-3.5 for patients with mechanical heart valves.CBC W/PLT COUNT & AUTO [id number] 06:25:00 Test Item Value Reference Range Comments WHITE BLOOD CELL COUNT (BEAKER) (test dyzl=772) 7.1 K/ L 3.5-10.5 RED BLOOD CELL COUNT (BEAKER) (test iulu=639) 2.90 M/ L 4.63-6.08 HEMOGLOBIN (BEAKER) (test dbra=408) 9.1 GM/DL 13.7-17.5 HEMATOCRIT (BEAKER) (test lriy=214) 28.9 % 40.1-51.0 MEAN CORPUSCULAR VOLUME (BEAKER) (test klvn=285) 99.7 fL 79.0-92.2 MEAN CORPUSCULAR HEMOGLOBIN (BEAKER) (test 31.4 pg 25.7-32.2 akyx=678) MEAN CORPUSCULAR HEMOGLOBIN CONC (BEAKER) (test 31.5 GM/DL 32.3-36.5 ysxg=814) RED CELL DISTRIBUTION WIDTH (BEAKER) (test 16.4 % 11.6-14.4 hmef=350) PLATELET COUNT (BEAKER) (test buxo=075) 402 K/CU MM 150-450 MEAN PLATELET VOLUME (BEAKER) (test jxbv=609) 9.2 fL 9.4-12.4 NUCLEATED RED BLOOD CELLS (BEAKER) (test 0 /100 WBC 0-0 ekiy=078) NEUTROPHILS RELATIVE PERCENT (BEAKER) (test 61 % vqmy=150) LYMPHOCYTES RELATIVE PERCENT (BEAKER) (test 21 % fvfo=714) MONOCYTES RELATIVE PERCENT (BEAKER) (test 16 % lkao=553) EOSINOPHILS RELATIVE PERCENT (BEAKER) (test 2 % eptk=727) BASOPHILS RELATIVE PERCENT (BEAKER) (test 0 % cswl=412) NEUTROPHILS ABSOLUTE COUNT (BEAKER) (test 4.30 K/ L 1.78-5.38 lgvd=190) LYMPHOCYTES ABSOLUTE COUNT (BEAKER) (test 1.49 K/ L 1.32-3.57 rifo=960) MONOCYTES ABSOLUTE COUNT (BEAKER) (test 1.10 K/ L 0.30-0.82 accw=069) EOSINOPHILS ABSOLUTE COUNT (BEAKER) (test 0.15 K/ L 0.04-0.54 nbip=008) BASOPHILS ABSOLUTE COUNT (BEAKER) (test 0.02 K/ L 0.01-0.08 jfqf=159) IMMATURE GRANULOCYTES-RELATIVE PERCENT (BEAKER) 0 % 0-1 (test dcly=4091) POCT-GLUCOSE [id number] 06:22:00 Test Item Value Reference Range Comments POC-GLUCOSE METER (BEAKER) 131 mg/dL 70-110 TESTED AT [address] (test uoul=7378) [place] [id number] URINALYSIS W/ [id number] 20:35:00 Test Item Value Reference Range Comments COLOR (BEAKER) (test odhj=428) Yellow CLARITY (BEAKER) (test uxhk=248) Clear SPECIFIC GRAVITY UA (BEAKER) (test 1.006 1.001-1.035 edis=468) PH UA (BEAKER) (test undy=595) 6.5 5.0-8.0 PROTEIN UA (BEAKER) (test hszl=652) Negative Negative GLUCOSE UA (BEAKER) (test rrnf=817) Negative Negative KETONES UA (BEAKER) (test crvh=016) Negative Negative BILIRUBIN UA (BEAKER) (test ffxp=930) Negative Negative BLOOD UA (BEAKER) (test acur=424) Negative Negative NITRITE UA (BEAKER) (test jejv=273) Negative Negative LEUKOCYTE ESTERASE UA (BEAKER) (test Negative Negative suwc=022) UROBILINOGEN UA (BEAKER) (test vrpd=239) 0.2 mg/dL 0.2-1.0 RBC UA (BEAKER) (test ckhk=101) 1 /HPF WBC UA (BEAKER) (test cbih=192) 0 /HPF SOURCE(BEAKER) (test ifjj=9153) Urine, Clean Catch POCT-GLUCOSE [id number] 20:21:00 Test Item Value Reference Range Comments POC-GLUCOSE METER (BEAKER) 132 mg/dL 70-110 TESTED AT [address] (test plip=0783) [place] [id number] POCT-GLUCOSE [id number] 16:17:00 Test Item Value Reference Range Comments POC-GLUCOSE METER (BEAKER) 101 mg/dL 70-110 TESTED AT [address] (test azbz=8481) [place] [id number] POCT-GLUCOSE [id number] 13:35:00 Test Item Value Reference Range Comments POC-GLUCOSE METER (BEAKER) 143 mg/dL 70-110 TESTED AT [address] (test jjox=9242) [place] [id number] BASIC METABOLIC [id number] 06:31:00 Test Item Value Reference Range Comments SODIUM (BEAKER) (test 137 meq/L 136-145 utsv=445) POTASSIUM (BEAKER) (test 4.2 meq/L 3.5-5.1 wnav=324) CHLORIDE (BEAKER) (test 104 meq/L 98-107 eswi=027) CO2 (BEAKER) (test 26 meq/L 22-29 dzlk=893) BLOOD UREA NITROGEN 4 mg/dL 7-21 (BEAKER) (test thzg=133) CREATININE (BEAKER) (test 0.57 mg/dL 0.57-1.25 xlvt=637) GLUCOSE RANDOM (BEAKER) 97 mg/dL 70-105 (test qpbt=287) CALCIUM (BEAKER) (test 8.8 mg/dL 8.4-10.2 thia=234) EGFR (BEAKER) (test 142 mL/min/1.73 sq m ESTIMATED GFR IS NOT ycfg=9756) ACCURATE CREATININE CLEARANCE IN PREDICTING GLOMERULAR FILTRATION RATE. ESTIMATED GFR IS NOT APPLICABLE FOR DIALYSIS PATIENTS. BASIC METABOLIC [id number] 05:41:00 Test Item Value Reference Range Comments SODIUM (BEAKER) (test 141 meq/L 136-145 gfhz=496) POTASSIUM (BEAKER) (test 3.9 meq/L 3.5-5.1 qeya=896) CHLORIDE (BEAKER) (test 107 meq/L 98-107 vhwx=444) CO2 (BEAKER) (test 24 meq/L 22-29 uwri=907) BLOOD UREA NITROGEN 4 mg/dL 7-21 (BEAKER) (test snym=244) CREATININE (BEAKER) (test 0.59 mg/dL 0.57-1.25 jnsr=116) GLUCOSE RANDOM (BEAKER) 100 mg/dL 70-105 (test wpyq=559) CALCIUM (BEAKER) (test 8.7 mg/dL 8.4-10.2 vssz=890) EGFR (BEAKER) (test 137 mL/min/1.73 sq m ESTIMATED GFR IS NOT zdnw=1526) ACCURATE CREATININE CLEARANCE IN PREDICTING GLOMERULAR FILTRATION RATE. ESTIMATED GFR IS NOT APPLICABLE FOR DIALYSIS PATIENTS. CBC (HEMOGRAM ONLY)2016-12-13 05:18:00 Test Item Value Reference Range Comments WHITE BLOOD CELL COUNT (BEAKER) (test uxly=872) 8.5 K/ L 3.5-10.5 RED BLOOD CELL COUNT (BEAKER) (test rwat=075) 2.81 M/ L 4.63-6.08 HEMOGLOBIN (BEAKER) (test jfqr=239) 9.0 GM/DL 13.7-17.5 HEMATOCRIT (BEAKER) (test prob=350) 27.9 % 40.1-51.0 MEAN CORPUSCULAR VOLUME (BEAKER) (test vkgk=487) 99.3 fL 79.0-92.2 MEAN CORPUSCULAR HEMOGLOBIN (BEAKER) (test 32.0 pg 25.7-32.2 cowk=172) MEAN CORPUSCULAR HEMOGLOBIN CONC (BEAKER) (test 32.3 GM/DL 32.3-36.5 xtkt=413) RED CELL DISTRIBUTION WIDTH (BEAKER) (test 17.0 % 11.6-14.4 cqfn=536) PLATELET COUNT (BEAKER) (test zvlk=073) 473 K/CU MM 150-450 MEAN PLATELET VOLUME (BEAKER) (test gndq=555) 9.3 fL 9.4-12.4 NUCLEATED RED BLOOD CELLS (BEAKER) (test 0 /100 WBC 0-0 txze=227) VITAMIN [id number] 06:04:00 Test Item Value Reference Range Comments VITAMIN B12 (BEAKER) (test jcak=127) 619 pg/mL 213-816 [id number] 06:04:00 Test Item Value Reference Range Comments FERRITIN (BEAKER) (test vhhg=786) 335 ng/mL 5-275 Effective 03/02/2014: Reference Range ChangeNew: Male 5-275 Previous: Male 22-322 Female 5-275 Female 10-291FOLATE, [id number] 06: 04:00 Test Item Value Reference Range Comments FOLATE (BEAKER) (test degz=160) 4.9 ng/mL >=7.0 Effective 03/02/2014: Folate Reference Range ChangeNew: >=7.0 Previous: & gt;=5.4BASIC METABOLIC [id number] 05:47:00 Test Item Value Reference Range Comments SODIUM (BEAKER) (test 135 meq/L 136-145 kchu=729) POTASSIUM (BEAKER) (test 4.1 meq/L 3.5-5.1 frlv=847) CHLORIDE (BEAKER) (test 103 meq/L 98-107 bett=236) CO2 (BEAKER) (test 24 meq/L 22-29 kkud=814) BLOOD UREA NITROGEN 5 mg/dL 7-21 (BEAKER) (test lqoe=112) CREATININE (BEAKER) (test 0.56 mg/dL 0.57-1.25 tmvf=424) GLUCOSE RANDOM (BEAKER) 98 mg/dL 70-105 (test znzl=017) CALCIUM (BEAKER) (test 8.5 mg/dL 8.4-10.2 zamp=444) EGFR (BEAKER) (test 145 mL/min/1.73 sq m ESTIMATED GFR IS NOT wcoa=3394) ACCURATE CREATININE CLEARANCE IN PREDICTING GLOMERULAR FILTRATION RATE. ESTIMATED GFR IS NOT APPLICABLE FOR DIALYSIS PATIENTS. IRON, TIBC, % SAT. (WITHOUT FERRITIN)2016-12-12 05:29:00 Test Item Value Reference Range Comments IRON (BEAKER) (test xmux=750) 25 ug/dL 40-160 TOTAL IRON BINDING CAPACITY (BEAKER) (test 238 ug/dL 250-450 cqkc=076) IRON % SATURATION (2) (BEAKER) (test xyzy=2149) 11 % 20-55 CBC (HEMOGRAM ONLY)2016-12-12 05:09:00 Test Item Value Reference Range Comments WHITE BLOOD CELL COUNT (BEAKER) (test ifmq=925) 8.6 K/ L 3.5-10.5 RED BLOOD CELL COUNT (BEAKER) (test lukc=483) 2.74 M/ L 4.63-6.08 HEMOGLOBIN (BEAKER) (test ijwa=221) 8.9 GM/DL 13.7-17.5 HEMATOCRIT (BEAKER) (test wsyf=811) 27.3 % 40.1-51.0 MEAN CORPUSCULAR VOLUME (BEAKER) (test ygio=012) 99.6 fL 79.0-92.2 MEAN CORPUSCULAR HEMOGLOBIN (BEAKER) (test 32.5 pg 25.7-32.2 kymh=121) MEAN CORPUSCULAR HEMOGLOBIN CONC (BEAKER) (test 32.6 GM/DL 32.3-36.5 hbdq=611) RED CELL DISTRIBUTION WIDTH (BEAKER) (test 17.2 % 11.6-14.4 igqs=859) PLATELET COUNT (BEAKER) (test sshq=668) 400 K/CU MM 150-450 MEAN PLATELET VOLUME (BEAKER) (test ggdg=297) 9.2 fL 9.4-12.4 NUCLEATED RED BLOOD CELLS (BEAKER) (test 0 /100 WBC 0-0 jqlw=514) BASIC METABOLIC [id number] 05:53:00 Test Item Value Reference Range Comments SODIUM (BEAKER) (test 138 meq/L 136-145 endm=250) POTASSIUM (BEAKER) (test 4.0 meq/L 3.5-5.1 Specimen slightly zowv=174) hemolyzed CHLORIDE (BEAKER) (test 105 meq/L 98-107 frzr=479) CO2 (BEAKER) (test 24 meq/L 22-29 ydmy=121) BLOOD UREA NITROGEN 4 mg/dL 7-21 (BEAKER) (test nseg=925) CREATININE (BEAKER) (test 0.56 mg/dL 0.57-1.25 Specimen slightly izgy=479) hemolyzed GLUCOSE RANDOM (BEAKER) 97 mg/dL 70-105 (test wxoe=592) CALCIUM (BEAKER) (test 8.4 mg/dL 8.4-10.2 wpkq=551) EGFR (BEAKER) (test 145 mL/min/1.73 sq m ESTIMATED GFR IS NOT dtox=1484) ACCURATE CREATININE CLEARANCE IN PREDICTING GLOMERULAR FILTRATION RATE. ESTIMATED GFR IS NOT APPLICABLE FOR DIALYSIS PATIENTS. CREATINE KINASE (CK)2016-12-11 05:53:00 Test Item Value Reference Range Comments CREATINE KINASE TOTAL (BEAKER) (test mbgt=116) 29 U/L 29-200 CBC (HEMOGRAM ONLY)2016-12-11 05:34:00 Test Item Value Reference Range Comments WHITE BLOOD CELL COUNT (BEAKER) (test rioq=868) 8.0 K/ L 3.5-10.5 RED BLOOD CELL COUNT (BEAKER) (test itzl=414) 2.70 M/ L 4.63-6.08 HEMOGLOBIN (BEAKER) (test ohig=467) 8.6 GM/DL 13.7-17.5 HEMATOCRIT (BEAKER) (test fuzf=806) 27.0 % 40.1-51.0 MEAN CORPUSCULAR VOLUME (BEAKER) (test ibck=197) 100.0 fL 79.0-92.2 MEAN CORPUSCULAR HEMOGLOBIN (BEAKER) (test 31.9 pg 25.7-32.2 vqas=426) MEAN CORPUSCULAR HEMOGLOBIN CONC (BEAKER) (test 31.9 GM/DL 32.3-36.5 dbrr=223) RED CELL DISTRIBUTION WIDTH (BEAKER) (test 17.2 % 11.6-14.4 ahtr=691) PLATELET COUNT (BEAKER) (test pucf=041) 406 K/CU MM 150-450 MEAN PLATELET VOLUME (BEAKER) (test wutb=570) 9.4 fL 9.4-12.4 NUCLEATED RED BLOOD CELLS (BEAKER) (test 0 /100 WBC 0-0 gzrp=885) [id number] 22:53:00 Test Item Value Reference Range Comments ACTIVATED CLOTTING TIME 153 sec TESTED AT [place] [id number] [facility] (BEAKER) (test aoid=699) [place] [address] [id number] 22:35:00 Test Item Value Reference Range Comments ACTIVATED CLOTTING TIME 202 sec TESTED AT [address] (BEAKER) (test qfej=744) [place] [address] [id number] 22:04:00 Test Item Value Reference Range Comments PARTIAL THROMBOPLASTIN TIME (BEAKER) (test 45.2 seconds 22.5-36.0 bosu=034) Prior to initiating heparinCBC (HEMOGRAM ONLY)2016-12-10 21:56:00 Test Item Value Reference Range Comments WHITE BLOOD CELL COUNT (BEAKER) (test dcxm=419) 9.5 K/ L 3.5-10.5 RED BLOOD CELL COUNT (BEAKER) (test uxwa=963) 2.79 M/ L 4.63-6.08 HEMOGLOBIN (BEAKER) (test lths=163) 9.0 GM/DL 13.7-17.5 HEMATOCRIT (BEAKER) (test zkkr=655) 27.6 % 40.1-51.0 MEAN CORPUSCULAR VOLUME (BEAKER) (test xrfn=641) 98.9 fL 79.0-92.2 MEAN CORPUSCULAR HEMOGLOBIN (BEAKER) (test 32.3 pg 25.7-32.2 rshh=510) MEAN CORPUSCULAR HEMOGLOBIN CONC (BEAKER) (test 32.6 GM/DL 32.3-36.5 fgii=661) RED CELL DISTRIBUTION WIDTH (BEAKER) (test 17.3 % 11.6-14.4 gjfy=718) PLATELET COUNT (BEAKER) (test hfac=831) 429 K/CU MM 150-450 MEAN PLATELET VOLUME (BEAKER) (test otdn=875) 9.8 fL 9.4-12.4 NUCLEATED RED BLOOD CELLS (BEAKER) (test 0 /100 WBC 0-0 icpm=481) BASIC METABOLIC [id number] 08:43:00 Test Item Value Reference Range Comments SODIUM (BEAKER) (test 139 meq/L 136-145 gkkq=511) POTASSIUM (BEAKER) (test 4.0 meq/L 3.5-5.1 qzzp=900) CHLORIDE (BEAKER) (test 104 meq/L 98-107 bslu=113) CO2 (BEAKER) (test 24 meq/L 22-29 rnvh=355) BLOOD UREA NITROGEN 4 mg/dL 7-21 (BEAKER) (test hfqf=966) CREATININE (BEAKER) (test 0.58 mg/dL 0.57-1.25 nvae=825) GLUCOSE RANDOM (BEAKER) 95 mg/dL 70-105 (test qtkn=321) CALCIUM (BEAKER) (test 8.7 mg/dL 8.4-10.2 ysqf=331) EGFR (BEAKER) (test 139 mL/min/1.73 sq m ESTIMATED GFR IS NOT exxz=3686) ACCURATE CREATININE CLEARANCE IN PREDICTING GLOMERULAR FILTRATION RATE. ESTIMATED GFR IS NOT APPLICABLE FOR DIALYSIS PATIENTS. CBC (HEMOGRAM ONLY)2016-12-10 08:03:00 Test Item Value Reference Range Comments WHITE BLOOD CELL COUNT (BEAKER) (test patj=233) 8.7 K/ L 3.5-10.5 RED BLOOD CELL COUNT (BEAKER) (test mnwp=836) 2.80 M/ L 4.63-6.08 HEMOGLOBIN (BEAKER) (test laud=244) 9.2 GM/DL 13.7-17.5 HEMATOCRIT (BEAKER) (test iiax=963) 27.7 % 40.1-51.0 MEAN CORPUSCULAR VOLUME (BEAKER) (test aclt=408) 98.9 fL 79.0-92.2 MEAN CORPUSCULAR HEMOGLOBIN (BEAKER) (test 32.9 pg 25.7-32.2 lpjr=408) MEAN CORPUSCULAR HEMOGLOBIN CONC (BEAKER) (test 33.2 GM/DL 32.3-36.5 fnsf=904) RED CELL DISTRIBUTION WIDTH (BEAKER) (test 17.2 % 11.6-14.4 mnir=649) PLATELET COUNT (BEAKER) (test eblr=459) 509 K/CU MM 150-450 MEAN PLATELET VOLUME (BEAKER) (test rwpy=983) 9.3 fL 9.4-12.4 NUCLEATED RED BLOOD CELLS (BEAKER) (test 0 /100 WBC 0-0 kcvw=917) BASIC METABOLIC [id number] 06:44:00 Test Item Value Reference Range Comments SODIUM (BEAKER) (test 137 meq/L 136-145 ltpv=731) POTASSIUM (BEAKER) (test 4.6 meq/L 3.5-5.1 Specimen slightly plqj=105) hemolyzed CHLORIDE (BEAKER) (test 106 meq/L 98-107 hqfg=294) CO2 (BEAKER) (test 18 meq/L 22-29 bgam=954) BLOOD UREA NITROGEN 5 mg/dL 7-21 (BEAKER) (test qqet=015) CREATININE (BEAKER) (test 0.60 mg/dL 0.57-1.25 Specimen slightly qcpv=785) hemolyzed GLUCOSE RANDOM (BEAKER) 86 mg/dL 70-105 (test vuqd=362) CALCIUM (BEAKER) (test 8.6 mg/dL 8.4-10.2 irsw=099) EGFR (BEAKER) (test 134 mL/min/1.73 sq m ESTIMATED GFR IS NOT ycpw=1228) ACCURATE CREATININE CLEARANCE IN PREDICTING GLOMERULAR FILTRATION RATE. ESTIMATED GFR IS NOT APPLICABLE FOR DIALYSIS PATIENTS. CBC W/PLT COUNT & AUTO [id number] 21:33:00 Test Item Value Reference Range Comments WHITE BLOOD CELL COUNT (BEAKER) (test ghog=958) 8.3 K/ L 3.5-10.5 RED BLOOD CELL COUNT (BEAKER) (test uhps=300) 3.00 M/ L 4.63-6.08 HEMOGLOBIN (BEAKER) (test abyv=783) 9.6 GM/DL 13.7-17.5 HEMATOCRIT (BEAKER) (test glcs=788) 29.5 % 40.1-51.0 MEAN CORPUSCULAR VOLUME (BEAKER) (test mtht=086) 98.3 fL 79.0-92.2 MEAN CORPUSCULAR HEMOGLOBIN (BEAKER) (test 32.0 pg 25.7-32.2 uhgk=567) MEAN CORPUSCULAR HEMOGLOBIN CONC (BEAKER) (test 32.5 GM/DL 32.3-36.5 seyy=254) RED CELL DISTRIBUTION WIDTH (BEAKER) (test 17.3 % 11.6-14.4 smiw=310) PLATELET COUNT (BEAKER) (test gqld=343) 434 K/CU MM 150-450 MEAN PLATELET VOLUME (BEAKER) (test cawk=066) 9.4 fL 9.4-12.4 NUCLEATED RED BLOOD CELLS (BEAKER) (test 0 /100 WBC 0-0 zngv=328) NEUTROPHILS RELATIVE PERCENT (BEAKER) (test 54 % equc=918) LYMPHOCYTES RELATIVE PERCENT (BEAKER) (test 27 % mjcp=694) MONOCYTES RELATIVE PERCENT (BEAKER) (test 17 % nkva=815) EOSINOPHILS RELATIVE PERCENT (BEAKER) (test 2 % wfkd=709) BASOPHILS RELATIVE PERCENT (BEAKER) (test 0 % cdcs=564) NEUTROPHILS ABSOLUTE COUNT (BEAKER) (test 4.46 K/ L 1.78-5.38 httm=194) LYMPHOCYTES ABSOLUTE COUNT (BEAKER) (test 2.24 K/ L 1.32-3.57 wsxv=423) MONOCYTES ABSOLUTE COUNT (BEAKER) (test 1.38 K/ L 0.30-0.82 qvwo=818) EOSINOPHILS ABSOLUTE COUNT (BEAKER) (test 0.17 K/ L 0.04-0.54 utzq=107) BASOPHILS ABSOLUTE COUNT (BEAKER) (test 0.02 K/ L 0.01-0.08 rkod=510) IMMATURE GRANULOCYTES-RELATIVE PERCENT (BEAKER) 1 % 0-1 (test vjxe=0588) [id number] 07:21:00 Test Item Value Reference Range Comments PHOSPHORUS (BEAKER) (test ixzs=664) 3.6 mg/dL 2.3-4.7 [id number] 07:21:00 Test Item Value Reference Range Comments MAGNESIUM (BEAKER) (test aasw=405) 1.9 mg/dL 1.6-2.6 COMPREHENSIVE METABOLIC [id number] 07:21:00 Test Item Value Reference Range Comments TOTAL PROTEIN (BEAKER) 6.2 gm/dL 6.0-8.3 (test azwg=852) ALBUMIN (BEAKER) (test 3.0 g/dL 3.5-5.0 bfbd=0577) ALKALINE PHOSPHATASE 95 U/L 40-150 (BEAKER) (test ptwn=848) BILIRUBIN TOTAL (BEAKER) 0.3 mg/dL 0.2-1.2 (test twcs=053) SODIUM (BEAKER) (test 137 meq/L 136-145 hlvg=210) POTASSIUM (BEAKER) (test 3.9 meq/L 3.5-5.1 bwfa=388) CHLORIDE (BEAKER) (test 105 meq/L 98-107 jjda=751) CO2 (BEAKER) (test 23 meq/L 22-29 ygau=056) BLOOD UREA NITROGEN 6 mg/dL 7-21 (BEAKER) (test hoze=372) CREATININE (BEAKER) (test 0.57 mg/dL 0.57-1.25 zijm=272) GLUCOSE RANDOM (BEAKER) 89 mg/dL 70-105 (test xidq=182) CALCIUM (BEAKER) (test 8.3 mg/dL 8.4-10.2 fbky=438) AST (SGOT) (BEAKER) (test 25 U/L 5-34 kryk=074) ALT (SGPT) (BEAKER) (test 14 U/L 6-55 hzdp=506) EGFR (BEAKER) (test 142 mL/min/1.73 sq ESTIMATED GFR IS NOT ueda=3396) m ACCURATE CREATININE CLEARANCE IN PREDICTING GLOMERULAR FILTRATION RATE. ESTIMATED GFR IS NOT APPLICABLE FOR DIALYSIS PATIENTS. CBC (HEMOGRAM ONLY)2016-12-08 06:35:00 Test Item Value Reference Range Comments WHITE BLOOD CELL COUNT (BEAKER) (test ymwn=909) 7.9 K/ L 3.5-10.5 RED BLOOD CELL COUNT (BEAKER) (test daev=547) 2.92 M/ L 4.63-6.08 HEMOGLOBIN (BEAKER) (test qgqs=640) 9.2 GM/DL 13.7-17.5 HEMATOCRIT (BEAKER) (test femp=445) 28.4 % 40.1-51.0 MEAN CORPUSCULAR VOLUME (BEAKER) (test emic=296) 97.3 fL 79.0-92.2 MEAN CORPUSCULAR HEMOGLOBIN (BEAKER) (test 31.5 pg 25.7-32.2 bjzl=558) MEAN CORPUSCULAR HEMOGLOBIN CONC (BEAKER) (test 32.4 GM/DL 32.3-36.5 imvv=650) RED CELL DISTRIBUTION WIDTH (BEAKER) (test 17.0 % 11.6-14.4 uflm=244) PLATELET COUNT (BEAKER) (test fyrt=939) 415 K/CU MM 150-450 MEAN PLATELET VOLUME (BEAKER) (test obul=269) 9.3 fL 9.4-12.4 NUCLEATED RED BLOOD CELLS (BEAKER) (test 0 /100 WBC 0-0 vyvo=791) CBC (HEMOGRAM ONLY)2016-12-07 06:08:00 Test Item Value Reference Range Comments WHITE BLOOD CELL COUNT (BEAKER) (test sgad=314) 7.7 K/ L 3.5-10.5 RED BLOOD CELL COUNT (BEAKER) (test iytm=633) 2.85 M/ L 4.63-6.08 HEMOGLOBIN (BEAKER) (test yigl=669) 9.0 GM/DL 13.7-17.5 HEMATOCRIT (BEAKER) (test flnn=574) 27.8 % 40.1-51.0 MEAN CORPUSCULAR VOLUME (BEAKER) (test fjut=805) 97.5 fL 79.0-92.2 MEAN CORPUSCULAR HEMOGLOBIN (BEAKER) (test 31.6 pg 25.7-32.2 itne=534) MEAN CORPUSCULAR HEMOGLOBIN CONC (BEAKER) (test 32.4 GM/DL 32.3-36.5 izbo=471) RED CELL DISTRIBUTION WIDTH (BEAKER) (test 16.5 % 11.6-14.4 zenp=901) PLATELET COUNT (BEAKER) (test nkmr=930) 399 K/CU MM 150-450 MEAN PLATELET VOLUME (BEAKER) (test etzo=352) 9.5 fL 9.4-12.4 NUCLEATED RED BLOOD CELLS (BEAKER) (test 0 /100 WBC 0-0 ivmf=652) PHENYTOIN LEVEL, TOTAL AND [id number] 01:14:00 Test Item Value Reference Range Comments PHENYTOIN (DILANTIN) (BEAKER) (test zrzl=779) 22.9 ug/mL 10.0-20.0 PHENYTOIN FREE (BEAKER) (test vhuv=179) 3.51 mcg/ml 1.00-2.00 VALPROIC ACID LEVEL, [id number] 20:49:00 Test Item Value Reference Range Comments VALPROIC ACID TOTAL (BEAKER) (test biae=800) 33 ug/mL 50-100 Therapeutic range for some clinical conditions may be >100 ug/mLPOCT-GLUCOSE [id number] 17:10:00 Test Item Value Reference Range Comments POC-GLUCOSE METER (BEAKER) 108 mg/dL 70-110 TESTED AT [facility] [address] [facility] (test vmoz=3786) [facility] [address] PHENYTOIN LEVEL, [id number] 12:29:00 Test Item Value Reference Range Comments PHENYTOIN (DILANTIN) (BEAKER) (test evwa=211) 16.3 ug/mL 10.0-20.0 CREATINE KINASE (CK), TOTAL AND [id number] 12:26:00 Test Item Value Reference Range Comments CREATINE KINASE TOTAL (BEAKER) (test pgbr=128) 47 U/L 29-200 CREATINE KINASE-MB (BEAKER) (test ewlb=365) 1.1 ng/mL 0.0-6.6 CREATINE KINASE-MB INDEX (BEAKER) (test mwvh=529) 2.3 % Effective 03/02/2014: CK-MB Reference Range ChangeNew: 0.0-6.6 Previous: 0.0- 4.9CK-MB Reference Range:<6.7 Normal6.7-10.0 Borderline>10.0 AbnormalTROPONIN [id number] 12:26:00 Test Item Value Reference Range Comments TROPONIN I (BEAKER) (test udqn=030) 0.11 ng/mL 0.00-0.03 Effective 03/02/2014: Reference Range [...] renalfailure, acidosis, acute neurological disease, and persistent tachyarrhythmia.[id number] 12:17: 00 Test Item Value Reference Range Comments MAGNESIUM (BEAKER) (test njoo=010) 2.0 mg/dL 1.6-2.6 COMPREHENSIVE METABOLIC [id number] 12:17:00 Test Item Value Reference Range Comments TOTAL PROTEIN (BEAKER) 6.2 gm/dL 6.0-8.3 (test hozl=175) ALBUMIN (BEAKER) (test 3.0 g/dL 3.5-5.0 qpxo=9159) ALKALINE PHOSPHATASE 101 U/L 40-150 (BEAKER) (test bgrj=976) BILIRUBIN TOTAL (BEAKER) 0.3 mg/dL 0.2-1.2 (test zxez=462) SODIUM (BEAKER) (test 140 meq/L 136-145 fexl=647) POTASSIUM (BEAKER) (test 4.6 meq/L 3.5-5.1 ntcx=016) CHLORIDE (BEAKER) (test 107 meq/L 98-107 atql=015) CO2 (BEAKER) (test 24 meq/L 22-29 szqh=178) BLOOD UREA NITROGEN 5 mg/dL 7-21 (BEAKER) (test czty=117) CREATININE (BEAKER) (test 0.62 mg/dL 0.57-1.25 hcjf=957) GLUCOSE RANDOM (BEAKER) 111 mg/dL 70-105 (test gifz=694) CALCIUM (BEAKER) (test 8.6 mg/dL 8.4-10.2 llnt=483) AST (SGOT) (BEAKER) (test 23 U/L 5-34 fstj=058) ALT (SGPT) (BEAKER) (test 15 U/L 6-55 gzrj=658) EGFR (BEAKER) (test 129 mL/min/1.73 sq ESTIMATED GFR IS NOT sfmn=1259) m ACCURATE CREATININE CLEARANCE IN PREDICTING GLOMERULAR FILTRATION RATE. ESTIMATED GFR IS NOT APPLICABLE FOR DIALYSIS PATIENTS. CBC W/PLT COUNT & AUTO [id number] 11:55:00 Test Item Value Reference Range Comments WHITE BLOOD CELL COUNT (BEAKER) (test hczw=528) 7.5 K/ L 3.5-10.5 RED BLOOD CELL COUNT (BEAKER) (test gdqj=787) 3.01 M/ L 4.63-6.08 HEMOGLOBIN (BEAKER) (test orcl=256) 9.5 GM/DL 13.7-17.5 HEMATOCRIT (BEAKER) (test busr=518) 29.3 % 40.1-51.0 MEAN CORPUSCULAR VOLUME (BEAKER) (test mmbc=225) 97.3 fL 79.0-92.2 MEAN CORPUSCULAR HEMOGLOBIN (BEAKER) (test 31.6 pg 25.7-32.2 vcip=219) MEAN CORPUSCULAR HEMOGLOBIN CONC (BEAKER) (test 32.4 GM/DL 32.3-36.5 hwio=494) RED CELL DISTRIBUTION WIDTH (BEAKER) (test 16.4 % 11.6-14.4 ndiv=215) PLATELET COUNT (BEAKER) (test rnsr=779) 396 K/CU MM 150-450 MEAN PLATELET VOLUME (BEAKER) (test qjqs=066) 9.6 fL 9.4-12.4 NUCLEATED RED BLOOD CELLS (BEAKER) (test 0 /100 WBC 0-0 wema=083) NEUTROPHILS RELATIVE PERCENT (BEAKER) (test 65 % baxr=307) LYMPHOCYTES RELATIVE PERCENT (BEAKER) (test 19 % jwgd=390) MONOCYTES RELATIVE PERCENT (BEAKER) (test 13 % nyts=723) EOSINOPHILS RELATIVE PERCENT (BEAKER) (test 2 % riyg=214) BASOPHILS RELATIVE PERCENT (BEAKER) (test 0 % ldbf=417) NEUTROPHILS ABSOLUTE COUNT (BEAKER) (test 4.91 K/ L 1.78-5.38 zsiy=454) LYMPHOCYTES ABSOLUTE COUNT (BEAKER) (test 1.43 K/ L 1.32-3.57 nphn=917) MONOCYTES ABSOLUTE COUNT (BEAKER) (test 0.96 K/ L 0.30-0.82 roke=036) EOSINOPHILS ABSOLUTE COUNT (BEAKER) (test 0.11 K/ L 0.04-0.54 oxoo=599) BASOPHILS ABSOLUTE COUNT (BEAKER) (test 0.02 K/ L 0.01-0.08 tgel=346) IMMATURE GRANULOCYTES-RELATIVE PERCENT (BEAKER) 1 % 0-1 (test fbxc=4105) URINE [id number] 11:55:00 Test Item Value Reference Range Comments CULTURE (BEAKER) (test irxk=3699) No growth BLOOD GAS, [id number] 10:28:00 Test Item Value Reference Range Comments PH ARTERIAL (BEAKER) (test egwy=480) 7.51 7.35-7.45 PCO2 ARTERIAL (BEAKER) (test thsw=277) 32 mmHg 35-45 PO2 ARTERIAL (BEAKER) (test doyy=453) 118 mmHg 80-90 O2 SATURATION ARTERIAL (BEAKER) (test vqnb=282) 98.7 % 96.0-97.0 HCO3 ARTERIAL (BEAKER) (test qubq=194) 25 mmol/L 21-29 BASE EXCESS ARTERIAL (BEAKER) (test xgaj=621) 2.1 mmol/L -2.0-3.0 PATIENT TEMPERATURE (BEAKER) (test efhg=9334) 36.6 C FIO2 (BEAKER) (test gsvz=1983) 32.0 % POCT-GLUCOSE [id number] 09:53:00 Test Item Value Reference Range Comments POC-GLUCOSE METER (BEAKER) 184 mg/dL 70-110 TESTED AT [address] (test fecl=5165) [facility] [address] TROPONIN [id number] 22:44:00 Test Item Value Reference Range Comments TROPONIN I (BEAKER) (test cbvu=630) 0.14 ng/mL 0.00-0.03 Effective 03/02/2014: Reference Range [...] acidosis, acute neurological disease, and persistent tachyarrhythmia.TROPONIN [id number] 15:17: 00 Test Item Value Reference Range Comments TROPONIN I (BEAKER) (test acpj=028) 0.14 ng/mL 0.00-0.03 Effective 03/02/2014: Reference Range [...] and persistent tachyarrhythmia.CBC W/PLT COUNT & AUTO [id number] 14:44:00 Test Item Value Reference Range Comments WHITE BLOOD CELL COUNT (BEAKER) (test xrzs=632) 7.7 K/ L 3.5-10.5 RED BLOOD CELL COUNT (BEAKER) (test tscd=118) 2.98 M/ L 4.63-6.08 HEMOGLOBIN (BEAKER) (test ikti=441) 9.3 GM/DL 13.7-17.5 HEMATOCRIT (BEAKER) (test rjqt=199) 28.7 % 40.1-51.0 MEAN CORPUSCULAR VOLUME (BEAKER) (test oitb=686) 96.3 fL 79.0-92.2 MEAN CORPUSCULAR HEMOGLOBIN (BEAKER) (test 31.2 pg 25.7-32.2 hbrp=195) MEAN CORPUSCULAR HEMOGLOBIN CONC (BEAKER) (test 32.4 GM/DL 32.3-36.5 lple=856) RED CELL DISTRIBUTION WIDTH (BEAKER) (test 15.7 % 11.6-14.4 suei=881) PLATELET COUNT (BEAKER) (test bmqq=203) 356 K/CU MM 150-450 MEAN PLATELET VOLUME (BEAKER) (test vfsh=729) 10.1 fL 9.4-12.4 NUCLEATED RED BLOOD CELLS (BEAKER) (test 1 /100 WBC 0-0 jned=386) NEUTROPHILS RELATIVE PERCENT (BEAKER) (test 58 % eyax=236) LYMPHOCYTES RELATIVE PERCENT (BEAKER) (test 24 % xean=122) MONOCYTES RELATIVE PERCENT (BEAKER) (test 16 % vpsa=869) EOSINOPHILS RELATIVE PERCENT (BEAKER) (test 1 % wkmo=820) BASOPHILS RELATIVE PERCENT (BEAKER) (test 0 % iqdq=840) NEUTROPHILS ABSOLUTE COUNT (BEAKER) (test 4.43 K/ L 1.78-5.38 wmpn=176) LYMPHOCYTES ABSOLUTE COUNT (BEAKER) (test 1.85 K/ L 1.32-3.57 xkcm=421) MONOCYTES ABSOLUTE COUNT (BEAKER) (test 1.22 K/ L 0.30-0.82 gypv=842) EOSINOPHILS ABSOLUTE COUNT (BEAKER) (test 0.11 K/ L 0.04-0.54 ehwb=330) BASOPHILS ABSOLUTE COUNT (BEAKER) (test 0.02 K/ L 0.01-0.08 tqit=980) IMMATURE GRANULOCYTES-RELATIVE PERCENT (BEAKER) 1 % 0-1 (test tklk=2867) (MANUAL DIFFERENTIAL)2016-12-05 14:44:00 Test Item Value Reference Range Comments TOTAL COUNTED (BEAKER) (test eoqk=6736) WBC MORPHOLOGY (BEAKER) (test mssp=340) Normal PLT MORPHOLOGY (BEAKER) (test vrsh=512) Normal RBC MORPHOLOGY (BEAKER) (test baaq=532) Normal [id number] 07:06:00 Test Item Value Reference Range Comments PHOSPHORUS (BEAKER) (test vdrk=808) 2.5 mg/dL 2.3-4.7 [id number] 07:06:00 Test Item Value Reference Range Comments MAGNESIUM (BEAKER) (test yquq=392) 2.0 mg/dL 1.6-2.6 COMPREHENSIVE METABOLIC [id number] 07:06:00 Test Item Value Reference Range Comments TOTAL PROTEIN (BEAKER) 6.3 gm/dL 6.0-8.3 (test wwfv=336) ALBUMIN (BEAKER) (test 3.1 g/dL 3.5-5.0 myeo=8947) ALKALINE PHOSPHATASE 108 U/L 40-150 (BEAKER) (test pcup=115) BILIRUBIN TOTAL (BEAKER) 0.3 mg/dL 0.2-1.2 (test gors=803) SODIUM (BEAKER) (test 139 meq/L 136-145 mrxx=222) POTASSIUM (BEAKER) (test 4.7 meq/L 3.5-5.1 bzwu=799) CHLORIDE (BEAKER) (test 107 meq/L 98-107 jtem=363) CO2 (BEAKER) (test 25 meq/L 22-29 hbeo=952) BLOOD UREA NITROGEN 6 mg/dL 7-21 (BEAKER) (test ashz=129) CREATININE (BEAKER) (test 0.57 mg/dL 0.57-1.25 seih=539) GLUCOSE RANDOM (BEAKER) 98 mg/dL 70-105 (test bvpq=289) CALCIUM (BEAKER) (test 8.8 mg/dL 8.4-10.2 hivw=770) AST (SGOT) (BEAKER) (test 25 U/L 5-34 dgub=349) ALT (SGPT) (BEAKER) (test 19 U/L 6-55 hqah=576) EGFR (BEAKER) (test 142 mL/min/1.73 sq ESTIMATED GFR IS NOT lrig=8285) m ACCURATE CREATININE CLEARANCE IN PREDICTING GLOMERULAR FILTRATION RATE. ESTIMATED GFR IS NOT APPLICABLE FOR DIALYSIS PATIENTS. PROTHROMBIN TIME/[id number] 06:40:00 Test Item Value Reference Range Comments PROTIME (BEAKER) (test sfco=988) 12.5 seconds 11.7-14.7 INR (BEAKER) (test pavk=012) 1.0 <=5.9 RECOMMENDED COUMADIN/WARFARIN INR THERAPY RANGESSTANDARD DOSE: 2.0 - 3.0 Includes: PROPHYLAXIS forvenous thrombosis, systemic embolization; TREATMENT for venous thrombosis and/or pulmonary embolus.HIGH RISK: Target INR is 2.5-3.5 for patients with mechanical heart valves.URINALYSIS W/ [id number] 06 :18:00 Test Item Value Reference Range Comments COLOR (BEAKER) (test yphr=024) Yellow CLARITY (BEAKER) (test emrs=479) Clear SPECIFIC GRAVITY UA (BEAKER) (test nwae=445) 1.010 1.001-1.035 PH UA (BEAKER) (test jnwc=870) 8.0 5.0-8.0 PROTEIN UA (BEAKER) (test aflw=259) Negative Negative GLUCOSE UA (BEAKER) (test siiy=066) Negative Negative KETONES UA (BEAKER) (test nnaf=829) 10 mg/dL Negative BILIRUBIN UA (BEAKER) (test pdri=879) Negative Negative BLOOD UA (BEAKER) (test vzmb=868) Negative Negative NITRITE UA (BEAKER) (test qywk=427) Negative Negative LEUKOCYTE ESTERASE UA (BEAKER) (test vkau=125) Negative Negative UROBILINOGEN UA (BEAKER) (test jxgy=242) 3.0 mg/dL 0.2-1.0 RBC UA (BEAKER) (test xpfc=712) 0 /HPF WBC UA (BEAKER) (test trhn=738) < /HPF SQUAMOUS EPITHELIAL (BEAKER) (test uuqe=759) < /HPF SOURCE(BEAKER) (test jmfu=7136) Urine, Voided COMPREHENSIVE METABOLIC [id number] 05:47:00 Test Item Value Reference Range Comments TOTAL PROTEIN (BEAKER) 5.5 gm/dL 6.0-8.3 (test yyfq=334) ALBUMIN (BEAKER) (test 2.7 g/dL 3.5-5.0 oenz=3976) ALKALINE PHOSPHATASE 97 U/L 40-150 (BEAKER) (test usqu=889) BILIRUBIN TOTAL (BEAKER) 0.3 mg/dL 0.2-1.2 (test olaf=639) SODIUM (BEAKER) (test 140 meq/L 136-145 ygfa=318) POTASSIUM (BEAKER) (test 3.4 meq/L 3.5-5.1 aoaj=378) CHLORIDE (BEAKER) (test 105 meq/L 98-107 bind=917) CO2 (BEAKER) (test 26 meq/L 22-29 dnki=202) BLOOD UREA NITROGEN 7 mg/dL 7-21 (BEAKER) (test uneq=950) CREATININE (BEAKER) (test 0.50 mg/dL 0.57-1.25 kxqn=302) GLUCOSE RANDOM (BEAKER) 96 mg/dL 70-105 (test tbkf=487) CALCIUM (BEAKER) (test 8.1 mg/dL 8.4-10.2 yqir=234) AST (SGOT) (BEAKER) (test 27 U/L 5-34 zikj=979) ALT (SGPT) (BEAKER) (test 19 U/L 6-55 zyfa=986) EGFR (BEAKER) (test 165 mL/min/1.73 sq ESTIMATED GFR IS NOT vlby=1714) m ACCURATE CREATININE CLEARANCE IN PREDICTING GLOMERULAR FILTRATION RATE. ESTIMATED GFR IS NOT APPLICABLE FOR DIALYSIS PATIENTS. CBC (HEMOGRAM ONLY)2016-12-04 05:45:00 Test Item Value Reference Range Comments WHITE BLOOD CELL COUNT (BEAKER) (test umxe=422) 6.9 K/ L 3.5-10.5 RED BLOOD CELL COUNT (BEAKER) (test axwa=488) 2.72 M/ L 4.63-6.08 HEMOGLOBIN (BEAKER) (test jmzh=974) 8.6 GM/DL 13.7-17.5 HEMATOCRIT (BEAKER) (test aepk=871) 25.5 % 40.1-51.0 MEAN CORPUSCULAR VOLUME (BEAKER) (test jtmy=194) 93.8 fL 79.0-92.2 MEAN CORPUSCULAR HEMOGLOBIN (BEAKER) (test 31.6 pg 25.7-32.2 uydu=236) MEAN CORPUSCULAR HEMOGLOBIN CONC (BEAKER) (test 33.7 GM/DL 32.3-36.5 jpcb=774) RED CELL DISTRIBUTION WIDTH (BEAKER) (test 15.0 % 11.6-14.4 inwz=392) PLATELET COUNT (BEAKER) (test igcp=386) 272 K/CU MM 150-450 MEAN PLATELET VOLUME (BEAKER) (test sofz=623) 10.4 fL 9.4-12.4 NUCLEATED RED BLOOD CELLS (BEAKER) (test 0 /100 WBC 0-0 ltcd=505) COMPREHENSIVE METABOLIC [id number] 10:08:00 Test Item Value Reference Range Comments TOTAL PROTEIN (BEAKER) 5.8 gm/dL 6.0-8.3 (test lupe=044) ALBUMIN (BEAKER) (test 2.8 g/dL 3.5-5.0 eplx=9484) ALKALINE PHOSPHATASE 94 U/L 40-150 (BEAKER) (test lzol=123) BILIRUBIN TOTAL (BEAKER) 0.3 mg/dL 0.2-1.2 (test fqpq=435) SODIUM (BEAKER) (test 138 meq/L 136-145 mdxy=733) POTASSIUM (BEAKER) (test 3.6 meq/L 3.5-5.1 jidr=425) CHLORIDE (BEAKER) (test 103 meq/L 98-107 vjsk=997) CO2 (BEAKER) (test 26 meq/L 22-29 biqc=205) BLOOD UREA NITROGEN 14 mg/dL 7-21 (BEAKER) (test vblm=395) CREATININE (BEAKER) (test 0.54 mg/dL 0.57-1.25 igsj=491) GLUCOSE RANDOM (BEAKER) 86 mg/dL 70-105 (test bnfw=201) CALCIUM (BEAKER) (test 8.2 mg/dL 8.4-10.2 okue=309) AST (SGOT) (BEAKER) (test 35 U/L 5-34 dhbw=540) ALT (SGPT) (BEAKER) (test 24 U/L 6-55 rtfz=133) EGFR (BEAKER) (test 151 mL/min/1.73 sq ESTIMATED GFR IS NOT cnek=6972) m ACCURATE CREATININE CLEARANCE IN PREDICTING GLOMERULAR FILTRATION RATE. ESTIMATED GFR IS NOT APPLICABLE FOR DIALYSIS PATIENTS. CBC (HEMOGRAM ONLY)2016-12-03 09:38:00 Test Item Value Reference Range Comments WHITE BLOOD CELL COUNT (BEAKER) (test sggb=132) 6.5 K/ L 3.5-10.5 RED BLOOD CELL COUNT (BEAKER) (test iele=393) 2.54 M/ L 4.63-6.08 HEMOGLOBIN (BEAKER) (test ppel=190) 8.1 GM/DL 13.7-17.5 HEMATOCRIT (BEAKER) (test ruov=929) 24.4 % 40.1-51.0 MEAN CORPUSCULAR VOLUME (BEAKER) (test ujbb=360) 96.1 fL 79.0-92.2 MEAN CORPUSCULAR HEMOGLOBIN (BEAKER) (test 31.9 pg 25.7-32.2 nmpv=329) MEAN CORPUSCULAR HEMOGLOBIN CONC (BEAKER) (test 33.2 GM/DL 32.3-36.5 fzlv=467) RED CELL DISTRIBUTION WIDTH (BEAKER) (test 15.1 % 11.6-14.4 xbox=929) PLATELET COUNT (BEAKER) (test dtjp=194) 233 K/CU MM 150-450 MEAN PLATELET VOLUME (BEAKER) (test laqn=967) 10.8 fL 9.4-12.4 NUCLEATED RED BLOOD CELLS (BEAKER) (test 0 /100 WBC 0-0 wixg=551) POCT-GLUCOSE [id number] 12:08:00 Test Item Value Reference Range Comments POC-GLUCOSE METER (BEAKER) 111 mg/dL 70-110 TESTED AT [facility] [address] (test ctao=7734) [facility] [address] POCT-GLUCOSE [id number] 08:40:00 Test Item Value Reference Range Comments POC-GLUCOSE METER (BEAKER) 184 mg/dL 70-110 TESTED AT [facility] [address] (test qxhb=7556) [facility] [address] [id number] 05:57:00 Test Item Value Reference Range Comments MAGNESIUM (BEAKER) (test elbz=597) 2.1 mg/dL 1.6-2.6 BASIC METABOLIC [id number] 05:57:00 Test Item Value Reference Range Comments SODIUM (BEAKER) (test 139 meq/L 136-145 dwmj=032) POTASSIUM (BEAKER) (test 3.4 meq/L 3.5-5.1 rfyl=793) CHLORIDE (BEAKER) (test 102 meq/L 98-107 dcjm=629) CO2 (BEAKER) (test 26 meq/L 22-29 vcqb=637) BLOOD UREA NITROGEN 15 mg/dL 7-21 (BEAKER) (test ijeu=000) CREATININE (BEAKER) (test 0.62 mg/dL 0.57-1.25 eaxc=358) GLUCOSE RANDOM (BEAKER) 104 mg/dL 70-105 (test mwug=974) CALCIUM (BEAKER) (test 8.8 mg/dL 8.4-10.2 vpff=174) EGFR (BEAKER) (test 129 mL/min/1.73 sq m ESTIMATED GFR IS NOT bmrw=7667) ACCURATE CREATININE CLEARANCE IN PREDICTING GLOMERULAR FILTRATION RATE. ESTIMATED GFR IS NOT APPLICABLE FOR DIALYSIS PATIENTS. CBC (HEMOGRAM ONLY)2016-12-02 05:25:00 Test Item Value Reference Range Comments WHITE BLOOD CELL COUNT (BEAKER) (test mltb=230) 8.2 K/ L 3.5-10.5 RED BLOOD CELL COUNT (BEAKER) (test epse=101) 2.68 M/ L 4.63-6.08 HEMOGLOBIN (BEAKER) (test qqtv=691) 8.6 GM/DL 13.7-17.5 HEMATOCRIT (BEAKER) (test kqay=081) 24.7 % 40.1-51.0 MEAN CORPUSCULAR VOLUME (BEAKER) (test ttnv=754) 92.2 fL 79.0-92.2 MEAN CORPUSCULAR HEMOGLOBIN (BEAKER) (test 32.1 pg 25.7-32.2 tahi=777) MEAN CORPUSCULAR HEMOGLOBIN CONC (BEAKER) (test 34.8 GM/DL 32.3-36.5 nysr=876) RED CELL DISTRIBUTION WIDTH (BEAKER) (test 15.0 % 11.6-14.4 zevq=364) PLATELET COUNT (BEAKER) (test kkhn=815) 226 K/CU MM 150-450 MEAN PLATELET VOLUME (BEAKER) (test hgkx=418) 10.7 fL 9.4-12.4 NUCLEATED RED BLOOD CELLS (BEAKER) (test 0 /100 WBC 0-0 saqk=461) POCT-GLUCOSE [id number] 21:18:00 Test Item Value Reference Range Comments POC-GLUCOSE METER (BEAKER) 118 mg/dL 70-110 TESTED AT [address] (test ypul=5716) [facility] [address] POCT-GLUCOSE [id number] 17:33:00 Test Item Value Reference Range Comments POC-GLUCOSE METER (BEAKER) 102 mg/dL 70-110 TESTED AT [address] (test efnk=7834) [facility] [address] POCT-GLUCOSE [id number] 12:06:00 Test Item Value Reference Range Comments POC-GLUCOSE METER (BEAKER) 188 mg/dL 70-110 TESTED AT [address] (test ajab=6647) [place] [id number] POCT-GLUCOSE [id number] 08:31:00 Test Item Value Reference Range Comments POC-GLUCOSE METER (BEAKER) 109 mg/dL 70-110 TESTED AT [address] (test jckj=6624) [facility] [address] [id number] 06:07:00 Test Item Value Reference Range Comments MAGNESIUM (BEAKER) (test hmwe=066) 2.0 mg/dL 1.6-2.6 BASIC METABOLIC [id number] 06:07:00 Test Item Value Reference Range Comments SODIUM (BEAKER) (test 139 meq/L 136-145 mqtr=668) POTASSIUM (BEAKER) (test 3.6 meq/L 3.5-5.1 iycb=035) CHLORIDE (BEAKER) (test 104 meq/L 98-107 tjum=023) CO2 (BEAKER) (test 27 meq/L 22-29 ebxz=593) BLOOD UREA NITROGEN 15 mg/dL 7-21 (BEAKER) (test viio=455) CREATININE (BEAKER) (test 0.60 mg/dL 0.57-1.25 sods=426) GLUCOSE RANDOM (BEAKER) 104 mg/dL 70-105 (test jlhh=183) CALCIUM (BEAKER) (test 9.0 mg/dL 8.4-10.2 hunt=945) EGFR (BEAKER) (test 134 mL/min/1.73 sq m ESTIMATED GFR IS NOT mckt=7467) ACCURATE CREATININE CLEARANCE IN PREDICTING GLOMERULAR FILTRATION RATE. ESTIMATED GFR IS NOT APPLICABLE FOR DIALYSIS PATIENTS. PT/[id number] 05:40:00 Test Item Value Reference Range Comments PROTIME (BEAKER) (test wotx=213) 14.1 seconds 11.7-14.7 INR (BEAKER) (test htil=692) 1.1 <=5.9 PARTIAL THROMBOPLASTIN TIME (BEAKER) (test 46.2 seconds 22.5-36.0 wsmc=011) RECOMMENDED COUMADIN/WARFARIN INR THERAPY RANGESSTANDARD DOSE: 2.0 - 3.0 Includes: PROPHYLAXIS forvenous thrombosis, systemic embolization; TREATMENT for venous thrombosis and/or pulmonary embolus.HIGH RISK: Target INR is 2.5-3.5 for patients with mechanical heart valves.CBC (HEMOGRAM ONLY)2016-12-01 05:18:00 Test Item Value Reference Range Comments WHITE BLOOD CELL COUNT (BEAKER) (test clor=501) 9.1 K/ L 3.5-10.5 RED BLOOD CELL COUNT (BEAKER) (test mfcc=374) 2.69 M/ L 4.63-6.08 HEMOGLOBIN (BEAKER) (test eeak=618) 8.5 GM/DL 13.7-17.5 HEMATOCRIT (BEAKER) (test ibff=629) 25.6 % 40.1-51.0 MEAN CORPUSCULAR VOLUME (BEAKER) (test jtpl=781) 95.2 fL 79.0-92.2 MEAN CORPUSCULAR HEMOGLOBIN (BEAKER) (test 31.6 pg 25.7-32.2 hvfr=920) MEAN CORPUSCULAR HEMOGLOBIN CONC (BEAKER) (test 33.2 GM/DL 32.3-36.5 zyze=631) RED CELL DISTRIBUTION WIDTH (BEAKER) (test 15.0 % 11.6-14.4 bjzt=979) PLATELET COUNT (BEAKER) (test mirf=999) 190 K/CU MM 150-450 MEAN PLATELET VOLUME (BEAKER) (test prct=919) 10.7 fL 9.4-12.4 NUCLEATED RED BLOOD CELLS (BEAKER) (test 0 /100 WBC 0-0 daai=500) POCT-GLUCOSE [id number] 21:01:00 Test Item Value Reference Range Comments POC-GLUCOSE METER (BEAKER) 118 mg/dL 70-110 TESTED AT [address] (test hyya=8864) [place] [id number] POCT-GLUCOSE [id number] 18:51:00 Test Item Value Reference Range Comments POC-GLUCOSE METER (BEAKER) 117 mg/dL 70-110 TESTED AT [address] (test xayf=5787) [place] [id number] POCT-GLUCOSE [id number] 14:02:00 Test Item Value Reference Range Comments POC-GLUCOSE METER (BEAKER) 129 mg/dL 70-110 TESTED AT [address] (test nvcm=4403) [place] [address] [id number] 04:19:00 Test Item Value Reference Range Comments MAGNESIUM (BEAKER) (test dklq=037) 1.8 mg/dL 1.6-2.6 BASIC METABOLIC [id number] 04:19:00 Test Item Value Reference Range Comments SODIUM (BEAKER) (test 138 meq/L 136-145 papk=224) POTASSIUM (BEAKER) (test 4.0 meq/L 3.5-5.1 nepu=311) CHLORIDE (BEAKER) (test 107 meq/L 98-107 vgeq=382) CO2 (BEAKER) (test 23 meq/L 22-29 sbby=570) BLOOD UREA NITROGEN 8 mg/dL 7-21 (BEAKER) (test eqac=030) CREATININE (BEAKER) (test 0.55 mg/dL 0.57-1.25 eydg=311) GLUCOSE RANDOM (BEAKER) 119 mg/dL 70-105 (test zzkd=349) CALCIUM (BEAKER) (test 8.8 mg/dL 8.4-10.2 alwa=308) EGFR (BEAKER) (test 148 mL/min/1.73 sq m ESTIMATED GFR IS NOT kmqr=3948) ACCURATE CREATININE CLEARANCE IN PREDICTING GLOMERULAR FILTRATION RATE. ESTIMATED GFR IS NOT APPLICABLE FOR DIALYSIS PATIENTS. [id number] 04:13:00 Test Item Value Reference Range Comments PROTIME (BEAKER) (test ubwq=506) 14.9 seconds 11.7-14.7 INR (BEAKER) (test hyry=393) 1.2 <=5.9 PARTIAL THROMBOPLASTIN TIME (BEAKER) (test 42.4 seconds 22.5-36.0 dbfv=682) RECOMMENDED COUMADIN/WARFARIN INR THERAPY RANGESSTANDARD DOSE: 2.0 - 3.0 Includes: PROPHYLAXIS forvenous thrombosis, systemic embolization; TREATMENT for venous thrombosis and/or pulmonary embolus.HIGH RISK: Target INR is 2.5-3.5 for patients with mechanical heart valves.Prior to initiating heparinPrior to initiating [id number] 04:13:00 Test Item Value Reference Range Comments PARTIAL THROMBOPLASTIN TIME (BEAKER) (test 42.4 seconds 22.5-36.0 xwxl=405) LACTIC ACID, ARTERIAL, WHOLE [id number] 04:09:00 Test Item Value Reference Range Comments LACTATE BLOOD ARTERIAL (2) (BEAKER) (test 1.1 mmol/L 0.5-2.2 iccr=4387) Effective 08/17/2015: Units/Reference Range ChangeNew: 0.5-2.2 mmol/L Previous: 5 -20 mg/dLCBC (HEMOGRAM ONLY)2016-11-30 04:03:00 Test Item Value Reference Range Comments WHITE BLOOD CELL COUNT (BEAKER) (test psfx=151) 10.5 K/ L 3.5-10.5 RED BLOOD CELL COUNT (BEAKER) (test fjwf=753) 2.93 M/ L 4.63-6.08 HEMOGLOBIN (BEAKER) (test jlqs=638) 9.4 GM/DL 13.7-17.5 HEMATOCRIT (BEAKER) (test tgmd=128) 27.5 % 40.1-51.0 MEAN CORPUSCULAR VOLUME (BEAKER) (test hxcn=957) 93.9 fL 79.0-92.2 MEAN CORPUSCULAR HEMOGLOBIN (BEAKER) (test 32.1 pg 25.7-32.2 lyss=106) MEAN CORPUSCULAR HEMOGLOBIN CONC (BEAKER) (test 34.2 GM/DL 32.3-36.5 iwxx=153) RED CELL DISTRIBUTION WIDTH (BEAKER) (test 15.3 % 11.6-14.4 tbwp=007) PLATELET COUNT (BEAKER) (test vjrj=386) 189 K/CU MM 150-450 MEAN PLATELET VOLUME (BEAKER) (test bono=701) 10.8 fL 9.4-12.4 NUCLEATED RED BLOOD CELLS (BEAKER) (test 0 /100 WBC 0-0 ivbt=464) CALCIUM, [id number] 03:54:00 Test Item Value Reference Range Comments CALCIUM IONIZED (BEAKER) (test lchr=413) 1.14 mmol/L 1.12-1.27 PH, BLOOD (BEAKER) (test kqor=3520) 7.49 BLOOD GAS, [id number] 03:54:00 Test Item Value Reference Range Comments PH ARTERIAL (BEAKER) (test beis=619) 7.48 7.35-7.45 PCO2 ARTERIAL (BEAKER) (test mved=474) 36 mmHg 35-45 PO2 ARTERIAL (BEAKER) (test ltye=427) 81 mmHg 80-90 O2 SATURATION ARTERIAL (BEAKER) (test njji=995) 96.4 % 96.0-97.0 HCO3 ARTERIAL (BEAKER) (test gfka=554) 26 mmol/L 21-29 BASE EXCESS ARTERIAL (BEAKER) (test tiaa=308) 2.5 mmol/L -2.0-3.0 PATIENT TEMPERATURE (BEAKER) (test oeff=4874) 37.6 C FIO2 (BEAKER) (test kavw=6044) 36.0 % POCT-GLUCOSE [id number] 17:32:00 Test Item Value Reference Range Comments POC-GLUCOSE METER (BEAKER) 121 mg/dL 70-110 TESTED AT [facility] [address] (test pnst=1720) [place] [address] PLATELET AGGREGATION: FUNCTION [id number] 14:46:00 Test Item Value Reference Range Comments WEAK ADP RESULT(BEAKER) (test 82 % 60-91 pmjx=8051) PLATELET FUNCTION SCREEN 60-100% indicates normal INTERP (BEAKER) (test platelet function ypkv=8743) TEVT-RCHTURTTHZQ-3447 (BEAKER) Mari Phelan MD (electronic (test rdwa=2547) signature) PLATELET COUNT AGG (BEAKER) 221 K/CU MM 150-450 (test pyek=7013) POCT-GLUCOSE [id number] 12:58:00 Test Item Value Reference Range Comments POC-GLUCOSE METER (BEAKER) 129 mg/dL 70-110 TESTED AT [address] (test vqcn=3805) [place] [address] HEMOGLOBIN [id number] 09:09:00 Test Item Value Reference Range Comments HEMOGLOBIN A1C (BEAKER) (test hpyk=528) 5.1 % 4.3-6.1 BLOOD GAS, [id number] 06:57:00 Test Item Value Reference Range Comments PH ARTERIAL (BEAKER) (test rdwk=192) 7.46 7.35-7.45 PCO2 ARTERIAL (BEAKER) (test nmoo=946) 35 mmHg 35-45 PO2 ARTERIAL (BEAKER) (test rgpc=034) 130 mmHg 80-90 O2 SATURATION ARTERIAL (BEAKER) (test yewo=059) 98.7 % 96.0-97.0 HCO3 ARTERIAL (BEAKER) (test whhm=462) 24 mmol/L 21-29 BASE EXCESS ARTERIAL (BEAKER) (test artd=224) 1.1 mmol/L -2.0-3.0 PATIENT TEMPERATURE (BEAKER) (test mtvk=1219) 37.8 C FIO2 (BEAKER) (test aspi=9305) 40.0 % POCT-GLUCOSE [id number] 06:01:00 Test Item Value Reference Range Comments POC-GLUCOSE METER (BEAKER) 154 mg/dL 70-110 TESTED AT [address] (test jsvq=8434) [place] [address] [id number] 05:02:00 Test Item Value Reference Range Comments MAGNESIUM (BEAKER) (test uuov=820) 2.0 mg/dL 1.6-2.6 BASIC METABOLIC [id number] 05:02:00 Test Item Value Reference Range Comments SODIUM (BEAKER) (test 140 meq/L 136-145 nwkc=347) POTASSIUM (BEAKER) (test 4.2 meq/L 3.5-5.1 zmul=849) CHLORIDE (BEAKER) (test 109 meq/L 98-107 dsao=957) CO2 (BEAKER) (test 23 meq/L 22-29 udef=361) BLOOD UREA NITROGEN 7 mg/dL 7-21 (BEAKER) (test krxj=475) CREATININE (BEAKER) (test 0.62 mg/dL 0.57-1.25 yxah=673) GLUCOSE RANDOM (BEAKER) 153 mg/dL 70-105 (test fzto=377) CALCIUM (BEAKER) (test 8.4 mg/dL 8.4-10.2 wunh=486) EGFR (BEAKER) (test 129 mL/min/1.73 sq m ESTIMATED GFR IS NOT yysj=5304) ACCURATE CREATININE CLEARANCE IN PREDICTING GLOMERULAR FILTRATION RATE. ESTIMATED GFR IS NOT APPLICABLE FOR DIALYSIS PATIENTS. [id number] 04:56:00 Test Item Value Reference Range Comments PROTIME (BEAKER) (test ngok=941) 13.9 seconds 11.7-14.7 INR (BEAKER) (test xhrm=953) 1.1 <=5.9 PARTIAL THROMBOPLASTIN TIME (BEAKER) (test 36.5 seconds 22.5-36.0 zups=347) RECOMMENDED COUMADIN/WARFARIN INR THERAPY RANGESSTANDARD DOSE: 2.0 - 3.0 Includes: PROPHYLAXIS forvenous thrombosis, systemic embolization; TREATMENT for venous thrombosis and/or pulmonary embolus.HIGH RISK: Target INR is 2.5-3.5 for patients with mechanical heart valves.CBC W/PLT COUNT & AUTO [id number] 04:54:00 Test Item Value Reference Range Comments WHITE BLOOD CELL COUNT (BEAKER) (test xudp=177) 8.8 K/ L 3.5-10.5 RED BLOOD CELL COUNT (BEAKER) (test eoig=984) 3.28 M/ L 4.63-6.08 HEMOGLOBIN (BEAKER) (test mimp=896) 10.5 GM/DL 13.7-17.5 HEMATOCRIT (BEAKER) (test qtbq=627) 30.8 % 40.1-51.0 MEAN CORPUSCULAR VOLUME (BEAKER) (test uzaz=690) 93.9 fL 79.0-92.2 MEAN CORPUSCULAR HEMOGLOBIN (BEAKER) (test 32.0 pg 25.7-32.2 mavh=345) MEAN CORPUSCULAR HEMOGLOBIN CONC (BEAKER) (test 34.1 GM/DL 32.3-36.5 yxeu=337) RED CELL DISTRIBUTION WIDTH (BEAKER) (test 15.7 % 11.6-14.4 ivan=840) PLATELET COUNT (BEAKER) (test ivcf=110) 219 K/CU MM 150-450 MEAN PLATELET VOLUME (BEAKER) (test gukh=353) 11.0 fL 9.4-12.4 NUCLEATED RED BLOOD CELLS (BEAKER) (test 0 /100 WBC 0-0 cgms=472) NEUTROPHILS RELATIVE PERCENT (BEAKER) (test 74 % htnv=072) LYMPHOCYTES RELATIVE PERCENT (BEAKER) (test 7 % yqez=519) MONOCYTES RELATIVE PERCENT (BEAKER) (test 19 % qawy=060) EOSINOPHILS RELATIVE PERCENT (BEAKER) (test 0 % iodk=462) BASOPHILS RELATIVE PERCENT (BEAKER) (test 0 % wiem=542) NEUTROPHILS ABSOLUTE COUNT (BEAKER) (test 6.45 K/ L 1.78-5.38 nlzt=048) LYMPHOCYTES ABSOLUTE COUNT (BEAKER) (test 0.63 K/ L 1.32-3.57 csht=655) MONOCYTES ABSOLUTE COUNT (BEAKER) (test 1.64 K/ L 0.30-0.82 etzj=877) EOSINOPHILS ABSOLUTE COUNT (BEAKER) (test 0.01 K/ L 0.04-0.54 caji=407) BASOPHILS ABSOLUTE COUNT (BEAKER) (test 0.03 K/ L 0.01-0.08 kuqb=577) IMMATURE GRANULOCYTES-RELATIVE PERCENT (BEAKER) 0 % 0-1 (test mgcn=9706) LACTIC ACID, ARTERIAL, WHOLE [id number] 04:39:00 Test Item Value Reference Range Comments LACTATE BLOOD ARTERIAL (2) (BEAKER) (test 1.2 mmol/L 0.5-2.2 xhbo=9014) Effective 08/17/2015: Units/Reference Range ChangeNew: 0.5-2.2 mmol/L Previous: 5 -20 mg/dLCALCIUM, [id number] 04:11:00 Test Item Value Reference Range Comments CALCIUM IONIZED (BEAKER) (test yzfq=432) 1.17 mmol/L 1.12-1.27 PH, BLOOD (BEAKER) (test mpgg=9809) 7.44 BLOOD GAS, [id number] 04:11:00 Test Item Value Reference Range Comments PH ARTERIAL (BEAKER) (test nnbx=855) 7.42 7.35-7.45 PCO2 ARTERIAL (BEAKER) (test xbxx=915) 39 mmHg 35-45 PO2 ARTERIAL (BEAKER) (test cnbq=178) 110 mmHg 80-90 O2 SATURATION ARTERIAL (BEAKER) (test ylkr=796) 97.9 % 96.0-97.0 HCO3 ARTERIAL (BEAKER) (test xvhn=339) 25 mmol/L 21-29 BASE EXCESS ARTERIAL (BEAKER) (test puwa=805) 0.6 mmol/L -2.0-3.0 PATIENT TEMPERATURE (BEAKER) (test dqdm=7864) 38.2 C FIO2 (BEAKER) (test lnhs=8044) 40.0 % OXYGEN SATURATION, [id number] 04:09:00 Test Item Value Reference Range Comments O2 SATURATION (MEASURED) (BEAKER) (test cdcb=2140) 80.7 % POCT-GLUCOSE [id number] 02:46:00 Test Item Value Reference Range Comments POC-GLUCOSE METER (BEAKER) 150 mg/dL 70-110 TESTED AT [address] (test ivjx=8897) [facility] [address] POCT-GLUCOSE [id number] 18:29:00 Test Item Value Reference Range Comments POC-GLUCOSE METER (BEAKER) 111 mg/dL 70-110 TESTED AT [address] (test gauz=9435) [facility] [address] [id number] 16:27:00 Test Item Value Reference Range Comments POTASSIUM (BEAKER) (test kleo=255) 4.2 meq/L 3.5-5.1 [id number] 16:27:00 Test Item Value Reference Range Comments MAGNESIUM (BEAKER) (test qtoa=220) 2.1 mg/dL 1.6-2.6 [id number] 16:27:00 Test Item Value Reference Range Comments SODIUM (BEAKER) (test vddv=115) 141 meq/L 136-145 BASIC METABOLIC [id number] 16:27:00 Test Item Value Reference Range Comments SODIUM (BEAKER) (test 141 meq/L 136-145 huka=520) POTASSIUM (BEAKER) (test 4.2 meq/L 3.5-5.1 inar=045) CHLORIDE (BEAKER) (test 112 meq/L 98-107 krez=539) CO2 (BEAKER) (test 21 meq/L 22-29 efnu=895) BLOOD UREA NITROGEN 8 mg/dL 7-21 (BEAKER) (test nzoi=336) CREATININE (BEAKER) (test 0.61 mg/dL 0.57-1.25 pqfp=284) GLUCOSE RANDOM (BEAKER) 167 mg/dL 70-105 (test wevz=963) CALCIUM (BEAKER) (test 8.5 mg/dL 8.4-10.2 qwye=613) EGFR (BEAKER) (test 131 mL/min/1.73 sq m ESTIMATED GFR IS NOT lqpr=1468) ACCURATE CREATININE CLEARANCE IN PREDICTING GLOMERULAR FILTRATION RATE. ESTIMATED GFR IS NOT APPLICABLE FOR DIALYSIS PATIENTS. LACTIC ACID, ARTERIAL, WHOLE [id number] 16:23:00 Test Item Value Reference Range Comments LACTATE BLOOD ARTERIAL (2) 1.8 mmol/L 0.5-2.2 Specimen slightly hemolyzed (BEAKER) (test epsp=8553) Effective 08/17/2015: Units/Reference Range ChangeNew: 0.5-2.2 mmol/L Previous: 5 -20 mg/dLPT/[id number] 16:18:00 Test Item Value Reference Range Comments PROTIME (BEAKER) (test raha=113) 14.2 seconds 11.7-14.7 INR (BEAKER) (test wqbp=575) 1.1 <=5.9 PARTIAL THROMBOPLASTIN TIME (BEAKER) (test 35.0 seconds 22.5-36.0 hivp=823) RECOMMENDED COUMADIN/WARFARIN INR THERAPY RANGESSTANDARD DOSE: 2.0 - 3.0 Includes: PROPHYLAXIS forvenous thrombosis, systemic embolization; TREATMENT for venous thrombosis and/or pulmonary embolus.HIGH RISK: Target INR is 2.5-3.5 for patients with mechanical heart valves.HEMOGLOBIN AND [id number] 16 :10:00 Test Item Value Reference Range Comments HEMOGLOBIN (BEAKER) (test qmgb=766) 10.0 GM/DL 13.7-17.5 HEMATOCRIT (BEAKER) (test cajv=167) 29.0 % 40.1-51.0 CBC (HEMOGRAM ONLY)[id number] 16:10:00 Test Item Value Reference Range Comments WHITE BLOOD CELL COUNT (BEAKER) (test uehz=466) 7.6 K/ L 3.5-10.5 RED BLOOD CELL COUNT (BEAKER) (test dywz=575) 3.06 M/ L 4.63-6.08 HEMOGLOBIN (BEAKER) (test ergg=160) 10.0 GM/DL 13.7-17.5 HEMATOCRIT (BEAKER) (test mjiv=967) 29.0 % 40.1-51.0 MEAN CORPUSCULAR VOLUME (BEAKER) (test elbl=330) 94.8 fL 79.0-92.2 MEAN CORPUSCULAR HEMOGLOBIN (BEAKER) (test 32.7 pg 25.7-32.2 alie=137) MEAN CORPUSCULAR HEMOGLOBIN CONC (BEAKER) (test 34.5 GM/DL 32.3-36.5 achf=339) RED CELL DISTRIBUTION WIDTH (BEAKER) (test 15.2 % 11.6-14.4 gxxw=022) PLATELET COUNT (BEAKER) (test hidm=118) 208 K/CU MM 150-450 MEAN PLATELET VOLUME (BEAKER) (test faha=147) 10.4 fL 9.4-12.4 NUCLEATED RED BLOOD CELLS (BEAKER) (test 0 /100 WBC 0-0 ouvw=116) BLOOD GAS, [id number] 16:03:00 Test Item Value Reference Range Comments PH ARTERIAL (BEAKER) (test cfjv=004) 7.36 7.35-7.45 PCO2 ARTERIAL (BEAKER) (test xatu=953) 45 mmHg 35-45 PO2 ARTERIAL (BEAKER) (test laka=913) 142 mmHg 80-90 O2 SATURATION ARTERIAL (BEAKER) (test liqk=619) 98.8 % 96.0-97.0 HCO3 ARTERIAL (BEAKER) (test xdui=815) 25 mmol/L 21-29 BASE EXCESS ARTERIAL (BEAKER) (test gcjg=991) -1.2 mmol/L -2.0-3.0 PATIENT TEMPERATURE (BEAKER) (test umwh=7691) 35.8 C FIO2 (BEAKER) (test cdaz=0799) 60.0 % CALCIUM, [id number] 16:03:00 Test Item Value Reference Range Comments CALCIUM IONIZED (BEAKER) (test sppe=800) 1.18 mmol/L 1.12-1.27 PH, BLOOD ([facility]) (test ssan=6364) 7.36 OXYGEN SATURATION, [id number] 16:02:00 Test Item Value Reference Range Comments O2 SATURATION (MEASURED) ([facility]) (test btqc=1032) 82.9 % [id number] 15:26:00 Test Item Value Reference Range Comments ACTIVATED CLOTTING TIME 120 sec TESTED AT [address] ([facility]) (test zzyt=888) [place] [address] [id number] 15:26:00 Test Item Value Reference Range Comments ACTIVATED CLOTTING TIME 802 sec TESTED AT [address] ([facility]) (test snjr=832) [place] [address] [id number] 15:26:00 Test Item Value Reference Range Comments ACTIVATED CLOTTING TIME 884 sec TESTED AT [address] ([facility]) (test ynvu=452) [place] [address] [id number] 15:26:00 Test Item Value Reference Range Comments ACTIVATED CLOTTING TIME 621 sec TESTED AT [address] (BEAKER) (test flco=796) [place] [address] THROMBOELASTOGRAPH (TEG)2016-11-28 14:00:00 Test Item Value Reference Range Comments TEG ACTIVATED CLOTTING TIME (BEAKER) (test 8.7 minutes 4.0-7.0 smog=3311) TEG FIBRINOGEN ACTIVITY (BEAKER) (test 73.1 degrees 61.0-73.0 sica=7470) TEG PLT. AGGREGATION (BEAKER) (test rvzx=9658) 70.6 MM 55.0-65.0 TGH ACTIVATED CLOTTING TIME (BEAKER) (test 8.7 minutes 4.0-7.0 wdvw=7055) TGH FIBRINOGEN ACTIVITY (BEAKER) (test 73.0 degrees 61.0-73.0 lumh=2099) TGH PLT. AGGREGATION (BEAKER) (test wlqh=3928) 69.3 MM 55.0-65.0 [id number] 13:28:00 Test Item Value Reference Range Comments FIBRINOGEN LEVEL (BEAKER) (test rvvk=103) 458 mg/dl 225-434 [id number] 13:28:00 Test Item Value Reference Range Comments PARTIAL THROMBOPLASTIN TIME (BEAKER) (test 39.7 seconds 22.5-36.0 fmxv=654) PROTHROMBIN [id number] 13:27:00 Test Item Value Reference Range Comments PROTIME (BEAKER) (test ypak=309) 17.4 seconds 11.7-14.7 INR (BEAKER) (test rrva=253) 1.4 <=5.9 RECOMMENDED COUMADIN/WARFARIN INR THERAPY RANGESSTANDARD DOSE: 2.0 - 3.0 Includes: PROPHYLAXIS forvenous thrombosis, systemic embolization; TREATMENT for venous thrombosis and/or pulmonary embolus.HIGH RISK: Target INR is 2.5-3.5 for patients with mechanical heart valves.PLATELET [id number] 13:21:00 Test Item Value Reference Range Comments PLATELET COUNT (BEAKER) 151 K/CU MM 150-450 Discordant result compared to (test jhtw=120) previous result; clinical correlation required. CALCIUM, [id number] 13:06:00 Test Item Value Reference Range Comments CALCIUM IONIZED (BEAKER) (test yzww=325) 1.07 mmol/L 1.12-1.27 PH, BLOOD (BEAKER) (test ujjo=2126) 7.31 SODIUM NA-STAT [id number] 13:05:00 Test Item Value Reference Range Comments SODIUM (BEAKER) (test dpyh=799) 135 meq/L 135-148 POTASSIUM-STAT [id number] 13:05:00 Test Item Value Reference Range Comments POTASSIUM (BEAKER) (test noga=754) 4.4 meq/L 3.6-5.5 BLOOD GAS, [id number] 13:05:00 Test Item Value Reference Range Comments PH ARTERIAL (BEAKER) (test oiey=764) 7.34 7.35-7.45 PCO2 ARTERIAL (BEAKER) (test tgvd=394) 45 mmHg 35-45 PO2 ARTERIAL (BEAKER) (test cnaj=685) 292 mmHg 80-90 O2 SATURATION ARTERIAL (BEAKER) (test affz=348) 99.6 % 96.0-97.0 HCO3 ARTERIAL (BEAKER) (test frfy=538) 24 mmol/L 21-29 BASE EXCESS ARTERIAL (BEAKER) (test xygn=516) -2.1 mmol/L -2.0-3.0 PATIENT TEMPERATURE (BEAKER) (test jnuv=7396) 35.2 C FIO2 (BEAKER) (test onur=0279) 67.0 % GLUCOSE-STAT [id number] 13:05:00 Test Item Value Reference Range Comments GLUCOSE RANDOM (BEAKER) (test zarz=974) 145 mg/dL 70-110 HGB/HCT (H&H) - STAT [id number] 13:05:00 Test Item Value Reference Range Comments HEMOGLOBIN (BEAKER) (test ndpj=356) 10.2 g/dL 13.0-16.8 HEMATOCRIT (BEAKER) (test rcvj=645) 30.0 % 40.0-50.0 BLOOD GAS, [id number] 12:26:00 Test Item Value Reference Range Comments PH ARTERIAL (BEAKER) (test yedp=119) 7.38 7.35-7.45 PCO2 ARTERIAL (BEAKER) (test rgma=682) 42 mmHg 35-45 PO2 ARTERIAL (BEAKER) (test pvqr=123) 133 mmHg 80-90 O2 SATURATION ARTERIAL (BEAKER) (test jwwc=414) 98.6 % 96.0-97.0 HCO3 ARTERIAL (BEAKER) (test jamr=854) 24 mmol/L 21-29 BASE EXCESS ARTERIAL (BEAKER) (test fxon=468) -0.7 mmol/L -2.0-3.0 PATIENT TEMPERATURE (BEAKER) (test ynwt=2480) 37.0 C FIO2 (BEAKER) (test qqsf=9291) 65.0 % GLUCOSE-STAT [id number] 12:26:00 Test Item Value Reference Range Comments GLUCOSE RANDOM (BEAKER) (test nqil=806) 132 mg/dL 70-110 HGB/HCT (H&H) - STAT [id number] 12:26:00 Test Item Value Reference Range Comments HEMOGLOBIN (BEAKER) (test xarn=571) 10.6 g/dL 13.0-16.8 HEMATOCRIT (BEAKER) (test ehwd=045) 31.0 % 40.0-50.0 SODIUM NA-STAT [id number] 12:25:00 Test Item Value Reference Range Comments SODIUM (BEAKER) (test zuyg=503) 136 meq/L 135-148 POTASSIUM-STAT [id number] 12:25:00 Test Item Value Reference Range Comments POTASSIUM (BEAKER) (test xoef=736) 4.4 meq/L 3.6-5.5 BLOOD GAS, [id number] 12:03:00 Test Item Value Reference Range Comments PH VENOUS (BEAKER) (test hchc=579) 7.41 7.32-7.42 PCO2 VENOUS (BEAKER) (test gtsy=306) 39 mmHg 41-51 PO2 VENOUS (BEAKER) (test hryn=021) 43 mmHg 25-40 O2 SATURATION VENOUS (BEAKER) (test hwwk=097) 91.8 % 40.0-70.0 HCO3 VENOUS (BEAKER) (test gpdd=345) 26 mmol/L 21-29 BASE EXCESS VENOUS (BEAKER) (test hswp=629) -0.6 mmol/L -2.0-3.0 PATIENT TEMPERATURE (BEAKER) (test wiyw=3132) 30.1 C FIO2 (BEAKER) (test icdo=4720) 65.0 % POTASSIUM-STAT [id number] 12:00:00 Test Item Value Reference Range Comments POTASSIUM (BEAKER) (test xpys=623) 4.7 meq/L 3.6-5.5 BLOOD GAS, [id number] 12:00:00 Test Item Value Reference Range Comments PH ARTERIAL (BEAKER) (test ishj=920) 7.45 7.35-7.45 PCO2 ARTERIAL (BEAKER) (test ptki=182) 34 mmHg 35-45 PO2 ARTERIAL (BEAKER) (test lrmn=928) 304 mmHg 80-90 O2 SATURATION ARTERIAL (BEAKER) (test ragu=127) 99.7 % 96.0-97.0 HCO3 ARTERIAL (BEAKER) (test hgfi=777) 25 mmol/L 21-29 BASE EXCESS ARTERIAL (BEAKER) (test zdpt=505) -0.8 mmol/L -2.0-3.0 PATIENT TEMPERATURE (BEAKER) (test qixc=0888) 30.1 C FIO2 (BEAKER) (test kdtz=5104) 65.0 % GLUCOSE-STAT [id number] 12:00:00 Test Item Value Reference Range Comments GLUCOSE RANDOM (BEAKER) (test pnim=032) 140 mg/dL 70-110 HGB/HCT (H&H) - STAT [id number] 12:00:00 Test Item Value Reference Range Comments HEMOGLOBIN (BEAKER) (test zjto=131) 10.4 g/dL 13.0-16.8 HEMATOCRIT (BEAKER) (test vzxi=923) 31.0 % 40.0-50.0 SODIUM NA-STAT [id number] 12:00:00 Test Item Value Reference Range Comments SODIUM (BEAKER) (test imnz=286) 131 meq/L 135-148 PLATELET AGGREGATION: FUNCTION [id number] 11:08:00 Test Item Value Reference Range Comments WEAK ADP RESULT(BEAKER) (test 76 % 60-91 rnbb=8022) PLATELET FUNCTION SCREEN 60-100% indicates normal INTERP (BEAKER) (test platelet function pttf=7302) [id number] (BEAKER) Mari Phelan MD (electronic (test oebu=9793) signature) PLATELET COUNT AGG (BEAKER) 222 K/CU MM 150-450 (test jcrv=2070) for patients on clopidogrel in past two weeksHEMOGLOBIN [id number] 08:57:00 Test Item Value Reference Range Comments HEMOGLOBIN A1C (BEAKER) (test nwrx=129) 5.0 % 4.3-6.1 CBC W/PLT COUNT & AUTO [id number] 05:54:00 Test Item Value Reference Range Comments WHITE BLOOD CELL COUNT (BEAKER) (test apdh=984) 9.9 K/ L 3.5-10.5 RED BLOOD CELL COUNT (BEAKER) (test eway=517) 4.14 M/ L 4.63-6.08 HEMOGLOBIN (BEAKER) (test dhfa=247) 13.4 GM/DL 13.7-17.5 HEMATOCRIT (BEAKER) (test jxhg=434) 39.0 % 40.1-51.0 MEAN CORPUSCULAR VOLUME (BEAKER) (test pkwq=964) 94.2 fL 79.0-92.2 MEAN CORPUSCULAR HEMOGLOBIN (BEAKER) (test 32.4 pg 25.7-32.2 vgrz=293) MEAN CORPUSCULAR HEMOGLOBIN CONC (BEAKER) (test 34.4 GM/DL 32.3-36.5 zjcq=383) RED CELL DISTRIBUTION WIDTH (BEAKER) (test 14.7 % 11.6-14.4 kcmy=663) PLATELET COUNT (BEAKER) (test ngih=846) 224 K/CU MM 150-450 MEAN PLATELET VOLUME (BEAKER) (test hsmd=605) 11.1 fL 9.4-12.4 NUCLEATED RED BLOOD CELLS (BEAKER) (test 0 /100 WBC 0-0 eedg=406) NEUTROPHILS RELATIVE PERCENT (BEAKER) (test 72 % slhm=510) LYMPHOCYTES RELATIVE PERCENT (BEAKER) (test 15 % tthp=736) MONOCYTES RELATIVE PERCENT (BEAKER) (test 11 % koxu=469) EOSINOPHILS RELATIVE PERCENT (BEAKER) (test 1 % nith=263) BASOPHILS RELATIVE PERCENT (BEAKER) (test 0 % pjfy=135) NEUTROPHILS ABSOLUTE COUNT (BEAKER) (test 7.13 K/ L 1.78-5.38 avte=669) LYMPHOCYTES ABSOLUTE COUNT (BEAKER) (test 1.49 K/ L 1.32-3.57 stkx=166) MONOCYTES ABSOLUTE COUNT (BEAKER) (test 1.13 K/ L 0.30-0.82 jgtk=104) EOSINOPHILS ABSOLUTE COUNT (BEAKER) (test 0.07 K/ L 0.04-0.54 smpe=231) BASOPHILS ABSOLUTE COUNT (BEAKER) (test 0.02 K/ L 0.01-0.08 dfuf=603) IMMATURE GRANULOCYTES-RELATIVE PERCENT (BEAKER) 0 % 0-1 (test htdo=6481) [id number] 05:37:00 Test Item Value Reference Range Comments PARTIAL THROMBOPLASTIN TIME (BEAKER) (test 56.5 seconds 22.5-36.0 odim=287) BASIC METABOLIC [id number] 05:33:00 Test Item Value Reference Range Comments SODIUM (BEAKER) (test 141 meq/L 136-145 ofge=382) POTASSIUM (BEAKER) (test 4.2 meq/L 3.5-5.1 srfy=851) CHLORIDE (BEAKER) (test 104 meq/L 98-107 mrce=028) CO2 (BEAKER) (test 28 meq/L 22-29 rnio=659) BLOOD UREA NITROGEN 10 mg/dL 7-21 (BEAKER) (test nsyk=866) CREATININE (BEAKER) (test 0.69 mg/dL 0.57-1.25 piuc=377) GLUCOSE RANDOM (BEAKER) 127 mg/dL 70-105 (test ftgr=553) CALCIUM (BEAKER) (test 9.3 mg/dL 8.4-10.2 nupb=101) EGFR (BEAKER) (test 114 mL/min/1.73 sq m ESTIMATED GFR IS NOT mext=0550) ACCURATE CREATININE CLEARANCE IN PREDICTING GLOMERULAR FILTRATION RATE. ESTIMATED GFR IS NOT APPLICABLE FOR DIALYSIS PATIENTS. PROTHROMBIN TIME/[id number] 05:33:00 Test Item Value Reference Range Comments PROTIME (BEAKER) (test gduh=457) 13.3 seconds 11.7-14.7 INR (BEAKER) (test hdmm=197) 1.0 <=5.9 RECOMMENDED COUMADIN/WARFARIN INR THERAPY RANGESSTANDARD DOSE: 2.0 - 3.0 Includes: PROPHYLAXIS forvenous thrombosis, systemic embolization; TREATMENT for venous thrombosis and/or pulmonary embolus.HIGH RISK: Target INR is 2.5-3.5 for patients with mechanical heart valves.[id number] 19:22:00 Test Item Value Reference Range Comments PARTIAL THROMBOPLASTIN TIME (BEAKER) (test 37.4 seconds 22.5-36.0 jdch=302) PROTHROMBIN TIME/[id number] 19:21:00 Test Item Value Reference Range Comments PROTIME (BEAKER) (test kvuj=308) 12.8 seconds 11.7-14.7 INR (BEAKER) (test lwxx=998) 1.0 <=5.9 RECOMMENDED COUMADIN/WARFARIN INR THERAPY RANGESSTANDARD DOSE: 2.0 - 3.0 Includes: PROPHYLAXIS forvenous thrombosis, systemic embolization; TREATMENT for venous thrombosis and/or pulmonary embolus.HIGH RISK: Target INR is 2.5-3.5 for patients with mechanical heart valves.[id number] 11:49:00 Test Item Value Reference Range Comments PARTIAL THROMBOPLASTIN TIME (BEAKER) (test 34.7 seconds 22.5-36.0 bhqe=572) Prior to initiating heparinPLATELET [id number] 11:31:00 Test Item Value Reference Range Comments PLATELET COUNT (BEAKER) (test wlbx=026) 199 K/CU MM 150-450 PLATELET AGGREGATION: FUNCTION [id number] 11:12:00 Test Item Value Reference Range Comments WEAK ADP RESULT(BEAKER) (test 90 % 60-91 leec=7378) PLATELET FUNCTION SCREEN 60-100% indicates normal INTERP (BEAKER) (test platelet function vqlw=2156) [id number] ([facility]) Mari Phelan MD (electronic (test pekz=3222) signature) PLATELET COUNT AGG (BEAKER) 200 K/CU MM 150-450 (test pkfx=2889) HEMOGLOBIN [id number] 08:38:00 Test Item Value Reference Range Comments HEMOGLOBIN A1C (MARLEEN) (test xjvq=654) 5.5 % 4.3-6.1 TROPONIN [id number] 08:35:00 Test Item Value Reference Range Comments TROPONIN I (MARLEEN) (test dzog=189) 0.40 ng/mL 0.00-0.03 Effective 03/02/2014: Reference Range [...] and persistent tachyarrhythmia.CREATINE KINASE (CK), TOTAL AND [id number] 08:27:00 Test Item Value Reference Range Comments CREATINE KINASE TOTAL (MARLEEN) (test mars=770) 39 U/L 29-200 CREATINE KINASE-MB (BEAKER) (test qxao=688) 1.6 ng/mL 0.0-6.6 CREATINE KINASE-MB INDEX (BEAKER) (test wqwh=507) 4.1 % Effective 03/02/2014: CK-MB Reference Range ChangeNew: 0.0-6.6 Previous: 0.0- 4.9CK-MB Reference Range:<6.7 Normal6.7-10.0 Borderline>10.0 AbnormalPOCT-GLUCOSE [id number] 08:23:00 Test Item Value Reference Range Comments POC-GLUCOSE METER (MARLEEN) 104 mg/dL 70-110 TESTED AT [address] (test inuh=1776) [place] [address] PROTHROMBIN TIME/[id number] 04:32:00 Test Item Value Reference Range Comments PROTIME (BEAKER) (test pnzw=699) 13.5 seconds 11.7-14.7 INR (BEAKER) (test pwby=045) 1.0 <=5.9 RECOMMENDED COUMADIN/WARFARIN INR THERAPY RANGESSTANDARD DOSE: 2.0 - 3.0 Includes: PROPHYLAXIS forvenous thrombosis, systemic embolization; TREATMENT for venous thrombosis and/or pulmonary embolus.HIGH RISK: Target INR is 2.5-3.5 for patients with mechanical heart valves.[id number] 02:13:00 Test Item Value Reference Range Comments PHOSPHORUS (BEAKER) (test zzuf=469) 3.9 mg/dL 2.3-4.7 [id number] 02:13:00 Test Item Value Reference Range Comments MAGNESIUM (BEAKER) (test finn=485) 2.1 mg/dL 1.6-2.6 BASIC METABOLIC [id number] 02:13:00 Test Item Value Reference Range Comments SODIUM (BEAKER) (test 141 meq/L 136-145 ectl=264) POTASSIUM (BEAKER) (test 4.3 meq/L 3.5-5.1 jprt=755) CHLORIDE (BEAKER) (test 104 meq/L 98-107 yein=041) CO2 (BEAKER) (test 28 meq/L 22-29 aghx=922) BLOOD UREA NITROGEN 8 mg/dL 7-21 (BEAKER) (test nscd=381) CREATININE (BEAKER) (test 0.67 mg/dL 0.57-1.25 aqps=233) GLUCOSE RANDOM (BEAKER) 98 mg/dL 70-105 (test nhlg=260) CALCIUM (BEAKER) (test 9.2 mg/dL 8.4-10.2 davh=289) EGFR (BEAKER) (test 118 mL/min/1.73 sq m ESTIMATED GFR IS NOT ddhr=3223) ACCURATE CREATININE CLEARANCE IN PREDICTING GLOMERULAR FILTRATION RATE. ESTIMATED GFR IS NOT APPLICABLE FOR DIALYSIS PATIENTS. CBC W/PLT COUNT & AUTO [id number] 01:44:00 Test Item Value Reference Range Comments WHITE BLOOD CELL COUNT (BEAKER) (test rrpa=655) 8.1 K/ L 3.5-10.5 RED BLOOD CELL COUNT (BEAKER) (test moqk=683) 3.92 M/ L 4.63-6.08 HEMOGLOBIN (BEAKER) (test kkzf=399) 12.6 GM/DL 13.7-17.5 HEMATOCRIT (BEAKER) (test leap=417) 37.3 % 40.1-51.0 MEAN CORPUSCULAR VOLUME (BEAKER) (test nuyw=555) 95.2 fL 79.0-92.2 MEAN CORPUSCULAR HEMOGLOBIN (BEAKER) (test 32.1 pg 25.7-32.2 wqdy=457) MEAN CORPUSCULAR HEMOGLOBIN CONC (BEAKER) (test 33.8 GM/DL 32.3-36.5 vbry=775) RED CELL DISTRIBUTION WIDTH (BEAKER) (test 15.2 % 11.6-14.4 eaqr=292) PLATELET COUNT (BEAKER) (test miby=646) 207 K/CU MM 150-450 MEAN PLATELET VOLUME (BEAKER) (test qtpf=578) 10.8 fL 9.4-12.4 NUCLEATED RED BLOOD CELLS (BEAKER) (test 0 /100 WBC 0-0 iwdm=380) NEUTROPHILS RELATIVE PERCENT (BEAKER) (test 51 % jewu=948) LYMPHOCYTES RELATIVE PERCENT (BEAKER) (test 30 % tych=066) MONOCYTES RELATIVE PERCENT (BEAKER) (test 17 % uflc=061) EOSINOPHILS RELATIVE PERCENT (BEAKER) (test 2 % szkn=415) BASOPHILS RELATIVE PERCENT (BEAKER) (test 0 % cwog=268) NEUTROPHILS ABSOLUTE COUNT (BEAKER) (test 4.09 K/ L 1.78-5.38 tfqc=061) LYMPHOCYTES ABSOLUTE COUNT (BEAKER) (test 2.38 K/ L 1.32-3.57 jemc=404) MONOCYTES ABSOLUTE COUNT (BEAKER) (test 1.34 K/ L 0.30-0.82 qooy=137) EOSINOPHILS ABSOLUTE COUNT (BEAKER) (test 0.19 K/ L 0.04-0.54 dmhs=023) BASOPHILS ABSOLUTE COUNT (BEAKER) (test 0.03 K/ L 0.01-0.08 uoyi=885) IMMATURE GRANULOCYTES-RELATIVE PERCENT (BEAKER) 0 % 0-1 (test jrfb=6149) [id number] 01:31:00 Test Item Value Reference Range Comments PROTIME (BEAKER) (test edip=902) 13.1 seconds 11.7-14.7 INR (BEAKER) (test hoym=249) 1.0 <=5.9 PARTIAL THROMBOPLASTIN TIME (BEAKER) (test 35.3 seconds 22.5-36.0 kcug=938) RECOMMENDED COUMADIN/WARFARIN INR THERAPY RANGESSTANDARD DOSE: 2.0 - 3.0 Includes: PROPHYLAXIS forvenous thrombosis, systemic embolization; TREATMENT for venous thrombosis and/or pulmonary embolus.HIGH RISK: Target INR is 2.5-3.5 for patients with mechanical heart valves.TROPONIN [id number] 00:46:00 Test Item Value Reference Range Comments TROPONIN I (BEAKER) (test ksrl=948) 0.51 ng/mL 0.00-0.03 Effective 03/02/2014: Reference Range [...] and persistent tachyarrhythmia.CREATINE KINASE (CK), TOTAL AND [id number] 00:34:00 Test Item Value Reference Range Comments CREATINE KINASE TOTAL (BEAKER) (test wafr=857) 44 U/L 29-200 CREATINE KINASE-MB (BEAKER) (test enwi=315) 2.1 ng/mL 0.0-6.6 CREATINE KINASE-MB INDEX (BEAKER) (test ypmd=544) 4.8 % Effective 03/02/2014: CK-MB Reference Range ChangeNew: 0.0-6.6 Previous: 0.0- 4.9CK-MB Reference Range:<6.7 Normal6.7-10.0 Borderline>10.0 [id number] 06:58:00 Test Item Value Reference Range Comments PHOSPHORUS (BEAKER) (test lbui=280) 3.7 mg/dL 2.3-4.7 [id number] 06:58:00 Test Item Value Reference Range Comments MAGNESIUM (BEAKER) (test nslj=275) 1.9 mg/dL 1.6-2.6 BASIC METABOLIC [id number] 06:58:00 Test Item Value Reference Range Comments SODIUM (BEAKER) (test 139 meq/L 136-145 nfxi=318) POTASSIUM (BEAKER) (test 4.1 meq/L 3.5-5.1 vfmg=785) CHLORIDE (BEAKER) (test 106 meq/L 98-107 tkzg=325) CO2 (BEAKER) (test 24 meq/L 22-29 ipwa=653) BLOOD UREA NITROGEN 12 mg/dL 7-21 (BEAKER) (test tfhz=750) CREATININE (BEAKER) (test 0.67 mg/dL 0.57-1.25 xcjl=608) GLUCOSE RANDOM (BEAKER) 82 mg/dL 70-105 (test orce=304) CALCIUM (BEAKER) (test 8.7 mg/dL 8.4-10.2 mbuc=243) EGFR (BEAKER) (test 118 mL/min/1.73 sq m ESTIMATED GFR IS NOT chdj=6996) ACCURATE CREATININE CLEARANCE IN PREDICTING GLOMERULAR FILTRATION RATE. ESTIMATED GFR IS NOT APPLICABLE FOR DIALYSIS PATIENTS. [id number] 06:36:00 Test Item Value Reference Range Comments PHOSPHORUS (BEAKER) (test qrjg=797) 4.1 mg/dL 2.3-4.7 [id number] 06:36:00 Test Item Value Reference Range Comments MAGNESIUM (BEAKER) (test cwto=057) 2.0 mg/dL 1.6-2.6 BASIC METABOLIC [id number] 06:36:00 Test Item Value Reference Range Comments SODIUM (BEAKER) (test 140 meq/L 136-145 gqjk=060) POTASSIUM (BEAKER) (test 4.3 meq/L 3.5-5.1 wvuk=256) CHLORIDE (BEAKER) (test 107 meq/L 98-107 nykx=229) CO2 (BEAKER) (test 24 meq/L 22-29 ecid=794) BLOOD UREA NITROGEN 10 mg/dL 7-21 (BEAKER) (test mslp=572) CREATININE (BEAKER) (test 0.64 mg/dL 0.57-1.25 pndc=682) GLUCOSE RANDOM (BEAKER) 78 mg/dL 70-105 (test xmmd=127) CALCIUM (BEAKER) (test 9.1 mg/dL 8.4-10.2 przb=321) EGFR (BEAKER) (test 125 mL/min/1.73 sq m ESTIMATED GFR IS NOT ofpj=9144) ACCURATE CREATININE CLEARANCE IN PREDICTING GLOMERULAR FILTRATION RATE. ESTIMATED GFR IS NOT APPLICABLE FOR DIALYSIS PATIENTS. [id number] 15:50:00 Test Item Value Reference Range Comments RPR SCREEN (BEAKER) (test tkym=730) Nonreactive Nonreactive HEMOGLOBIN [id number] 10:29:00 Test Item Value Reference Range Comments HEMOGLOBIN A1C (BEAKER) (test kbvt=955) 5.4 % 4.3-6.1 VITAMIN B12 AND [id number] 09:21:00 Test Item Value Reference Range Comments VITAMIN B12 (BEAKER) (test tucc=678) 335 pg/mL 213-816 FOLATE (BEAKER) (test cbrk=783) 36.6 ng/mL >=7.0 Effective 03/02/2014: Folate Reference Range ChangeNew: >=7.0 Previous: & gt;=5.4CBC W/PLT COUNT & AUTO [id number] 08:15:00 Test Item Value Reference Range Comments WHITE BLOOD CELL COUNT (BEAKER) (test sdba=059) 7.2 K/ L 4.0-10.0 RED BLOOD CELL COUNT (BEAKER) (test hjso=754) 4.30 M/ L 4.20-5.80 HEMOGLOBIN (BEAKER) (test sozh=168) 14.0 GM/DL 13.0-16.8 HEMATOCRIT (BEAKER) (test lpak=246) 42.7 % 40.0-50.0 MEAN CORPUSCULAR VOLUME (BEAKER) (test xnon=064) 99.3 fL 82.0-98.0 MEAN CORPUSCULAR HEMOGLOBIN (BEAKER) (test 32.6 pg 27.0-33.0 dgcc=767) MEAN CORPUSCULAR HEMOGLOBIN CONC (BEAKER) (test 32.9 GM/DL 32.0-36.0 frbm=786) RED CELL DISTRIBUTION WIDTH (BEAKER) (test 15.3 % 10.3-14.2 iqqu=639) PLATELET COUNT (BEAKER) (test cjpb=910) 217 K/CU MM 150-430 MEAN PLATELET VOLUME (BEAKER) (test slpi=191) 8.2 fL 6.5-10.5 NUCLEATED RED BLOOD CELLS (BEAKER) (test 0 /100 WBC 0-0 fiqc=106) NEUTROPHILS RELATIVE PERCENT (BEAKER) (test 48 % omja=578) LYMPHOCYTES RELATIVE PERCENT (BEAKER) (test 38 % kwdf=535) MONOCYTES RELATIVE PERCENT (BEAKER) (test 12 % phrl=144) EOSINOPHILS RELATIVE PERCENT (BEAKER) (test 2 % mkyv=274) BASOPHILS RELATIVE PERCENT (BEAKER) (test 1 % baxb=014) NEUTROPHILS ABSOLUTE COUNT (BEAKER) (test 3.42 K/ L 1.80-8.00 krop=284) LYMPHOCYTES ABSOLUTE COUNT (BEAKER) (test 2.70 K/ L 1.48-4.50 mktc=837) MONOCYTES ABSOLUTE COUNT (BEAKER) (test 0.82 K/ L 0.00-1.30 ufvw=193) EOSINOPHILS ABSOLUTE COUNT (BEAKER) (test 0.17 K/ L 0.00-0.50 xrlg=347) BASOPHILS ABSOLUTE COUNT (BEAKER) (test 0.05 K/ L 0.00-0.20 bmmj=872) 0.00TSH/FREE T4 IF [id number] 08:00:00 Test Item Value Reference Range Comments THYROID STIMULATING HORMONE (BEAKER) (test 1.39 uIU/mL 0.35-4.94 zgjr=653) BASIC METABOLIC [id number] 07:26:00 Test Item Value Reference Range Comments SODIUM (BEAKER) (test 140 meq/L 136-145 uxsk=346) POTASSIUM (BEAKER) (test 4.4 meq/L 3.5-5.1 Specimen slightly yhyw=601) hemolyzed CHLORIDE (BEAKER) (test 110 meq/L 98-107 rdrp=899) CO2 (BEAKER) (test 21 meq/L 22-29 pebn=461) BLOOD UREA NITROGEN 8 mg/dL 7-21 (BEAKER) (test neoe=234) CREATININE (BEAKER) 0.65 mg/dL 0.57-1.25 Specimen slightly (test mulz=731) hemolyzed GLUCOSE RANDOM (BEAKER) 85 mg/dL 70-105 (test jldw=060) CALCIUM (BEAKER) (test 9.0 mg/dL 8.4-10.2 aszl=388) EGFR (BEAKER) (test 123 mL/min/1.73 sq INSUFFICIENT CLINICAL DATA otxl=9503) m TO CALCULATE ESTIMATED GFR. LIPID [id number] 07:26:00 Test Item Value Reference Range Comments TRIGLYCERIDES (BEAKER) (test 102 mg/dL Specimen slightly hemolyzed kowh=439) CHOLESTEROL (BEAKER) (test 181 mg/dL Specimen slightly hemolyzed pxvp=407) HDL CHOLESTEROL (BEAKER) (test 30 mg/dL ssbo=644) LDL CHOLESTEROL CALCULATED 131 mg/dL (BEAKER) (test rydc=808) Triglyceride Reference Range: Low Risk <150 Borderline 150- 199 High Risk 200-499 Very High Risk >=500Cholesterol Reference Range: Low Risk <200 Borderline 200-239 High Risk > 240HDL Cholesterol Reference Range: Low Risk >=60 High Risk <40LDL Cholesterol Reference Range: Optimal <100 Near Optimal 100-129 Borderline 130-159 High 160-189 Very High >=[id number] 07:25:00 Test Item Value Reference Range Comments PHOSPHORUS (BEAKER) (test zxqr=651) 3.8 mg/dL 2.3-4.7 [id number] 07:25:00 Test Item Value Reference Range Comments MAGNESIUM (BEAKER) (test hddo=232) 2.0 mg/dL 1.6-2.6 URINALYSIS W/ [id number] 19:16:00 Test Item Value Reference Range Comments COLOR (BEAKER) (test lfzg=799) Light Yellow CLARITY (BEAKER) (test sqsh=248) Clear SPECIFIC GRAVITY UA (BEAKER) (test uoml=119) 1.007 1.001-1.035 PH UA (BEAKER) (test qmhl=312) 6.5 5.0-8.0 PROTEIN UA (BEAKER) (test jtvu=581) Negative Negative GLUCOSE UA (BEAKER) (test fppp=306) Negative Negative KETONES UA (BEAKER) (test pnuz=671) Negative Negative BILIRUBIN UA (BEAKER) (test ruxo=640) Negative Negative BLOOD UA (BEAKER) (test fwbc=531) Negative Negative NITRITE UA (BEAKER) (test oycg=321) Negative Negative LEUKOCYTE ESTERASE UA (BEAKER) (test kxal=186) Negative Negative UROBILINOGEN UA (BEAKER) (test hizz=265) 0.2 mg/dL 0.2-1.0 RBC UA (BEAKER) (test wvlu=948) 1 /HPF WBC UA (BEAKER) (test anqj=045) < /HPF SOURCE(BEAKER) (test jbpi=8413) Urine, Voided BLOOD [id number] 11:00:00 Test Item Value Reference Range Comments CULTURE (BEAKER) (test sebh=8583) No growth in 5 days BLOOD [id number] 11:00:00 Test Item Value Reference Range Comments CULTURE (BEAKER) (test rqwb=2001) No growth in 5 days BASIC METABOLIC [id number] 05:33:00 Test Item Value Reference Range Comments SODIUM (BEAKER) (test 137 meq/L 136-145 imex=176) POTASSIUM (BEAKER) (test 4.6 meq/L 3.5-5.1 qzni=998) CHLORIDE (BEAKER) (test 104 meq/L 98-107 nmhe=653) CO2 (BEAKER) (test 22 meq/L 22-29 ptnl=076) BLOOD UREA NITROGEN 4 mg/dL 7-21 (BEAKER) (test bjfv=026) CREATININE (BEAKER) 0.61 mg/dL 0.57-1.25 (test qfit=338) GLUCOSE RANDOM (BEAKER) 84 mg/dL 70-105 (test lawv=113) CALCIUM (BEAKER) (test 9.1 mg/dL 8.4-10.2 bbvc=356) EGFR (BEAKER) (test 132 mL/min/1.73 sq INSUFFICIENT CLINICAL DATA tvmn=1483) m TO CALCULATE ESTIMATED GFR. CBC W/PLT COUNT & AUTO [id number] 05:04:00 Test Item Value Reference Range Comments WHITE BLOOD CELL COUNT (BEAKER) (test oezz=004) 9.4 K/ L 4.0-10.0 RED BLOOD CELL COUNT (BEAKER) (test jlgz=434) 4.10 M/ L 4.20-5.80 HEMOGLOBIN (BEAKER) (test pnxj=357) 13.8 GM/DL 13.0-16.8 HEMATOCRIT (BEAKER) (test nouy=448) 40.7 % 40.0-50.0 MEAN CORPUSCULAR VOLUME (BEAKER) (test ghop=164) 99.3 fL 82.0-98.0 MEAN CORPUSCULAR HEMOGLOBIN (BEAKER) (test 33.7 pg 27.0-33.0 teat=887) MEAN CORPUSCULAR HEMOGLOBIN CONC (BEAKER) (test 33.9 GM/DL 32.0-36.0 ffud=606) RED CELL DISTRIBUTION WIDTH (BEAKER) (test 13.7 % 10.3-14.2 egmz=727) PLATELET COUNT (BEAKER) (test wbph=140) 224 K/CU MM 150-430 MEAN PLATELET VOLUME (BEAKER) (test oqmt=121) 7.4 fL 6.5-10.5 NUCLEATED RED BLOOD CELLS (BEAKER) (test 0 /100 WBC 0-0 tzvo=578) NEUTROPHILS RELATIVE PERCENT (BEAKER) (test 69 % yyek=283) LYMPHOCYTES RELATIVE PERCENT (BEAKER) (test 18 % ywhw=892) MONOCYTES RELATIVE PERCENT (BEAKER) (test 12 % japb=801) EOSINOPHILS RELATIVE PERCENT (BEAKER) (test 1 % bdjj=469) BASOPHILS RELATIVE PERCENT (BEAKER) (test 0 % kazh=527) NEUTROPHILS ABSOLUTE COUNT (BEAKER) (test 6.44 K/ L 1.80-8.00 irkk=213) LYMPHOCYTES ABSOLUTE COUNT (BEAKER) (test 1.69 K/ L 1.48-4.50 qegj=040) MONOCYTES ABSOLUTE COUNT (BEAKER) (test 1.16 K/ L 0.00-1.30 azxs=773) EOSINOPHILS ABSOLUTE COUNT (BEAKER) (test 0.05 K/ L 0.00-0.50 dvxi=400) BASOPHILS ABSOLUTE COUNT (BEAKER) (test 0.04 K/ L 0.00-0.20 bhru=289) 0.00VANCOMYCIN LEVEL, [id number] 21:36:00 Test Item Value Reference Range Comments VANCOMYCIN TROUGH (BEAKER) (test jjrr=979) 9.5 ug/mL 10.0-20.0 Please draw prior to 4th vancomycin doseVITAMIN B12 AND [id number] 04:33: 00 Test Item Value Reference Range Comments VITAMIN B12 (BEAKER) (test udot=991) 599 pg/mL 213-816 FOLATE (BEAKER) (test whuk=811) 7.7 ng/mL >=7.0 Effective 03/02/2014: Folate Reference Range ChangeNew: >=7.0 Previous: & gt;=5.4HEPATIC FUNCTION [id number] 03:58:00 Test Item Value Reference Range Comments TOTAL PROTEIN (BEAKER) (test yycb=946) 6.7 gm/dL 6.0-8.3 ALBUMIN (BEAKER) (test gria=9494) 3.3 g/dL 3.5-5.0 BILIRUBIN TOTAL (BEAKER) (test bxuh=985) 0.4 mg/dL 0.2-1.2 BILIRUBIN DIRECT (BEAKER) (test zkfw=773) 0.2 mg/dL 0.1-0.5 ALKALINE PHOSPHATASE (BEAKER) (test ttxp=888) 67 U/L 40-150 AST (SGOT) (BEAKER) (test wztb=997) 10 U/L 5-34 ALT (SGPT) (BEAKER) (test eppm=588) 12 U/L 6-55 BASIC METABOLIC [id number] 03:58:00 Test Item Value Reference Range Comments SODIUM (BEAKER) (test 139 meq/L 136-145 issk=586) POTASSIUM (BEAKER) (test 4.0 meq/L 3.5-5.1 vgip=502) CHLORIDE (BEAKER) (test 103 meq/L 98-107 gfvu=492) CO2 (BEAKER) (test 24 meq/L 22-29 ryee=926) BLOOD UREA NITROGEN 7 mg/dL 7-21 (BEAKER) (test gbyr=245) CREATININE (BEAKER) 0.58 mg/dL 0.57-1.25 (test yzzn=749) GLUCOSE RANDOM (BEAKER) 87 mg/dL 70-105 (test zwhd=888) CALCIUM (BEAKER) (test 9.3 mg/dL 8.4-10.2 zgsw=301) EGFR (BEAKER) (test 140 mL/min/1.73 sq INSUFFICIENT CLINICAL DATA xthk=8097) m TO CALCULATE ESTIMATED GFR. CBC W/PLT COUNT & AUTO [id number] 03:45:00 Test Item Value Reference Range Comments WHITE BLOOD CELL COUNT (BEAKER) (test zbsd=902) 7.5 K/ L 4.0-10.0 RED BLOOD CELL COUNT (BEAKER) (test apqa=494) 3.88 M/ L 4.20-5.80 HEMOGLOBIN (BEAKER) (test masg=313) 13.5 GM/DL 13.0-16.8 HEMATOCRIT (BEAKER) (test ydmi=100) 38.4 % 40.0-50.0 MEAN CORPUSCULAR VOLUME (BEAKER) (test cmbr=406) 99.0 fL 82.0-98.0 MEAN CORPUSCULAR HEMOGLOBIN (BEAKER) (test 34.8 pg 27.0-33.0 vhcv=557) MEAN CORPUSCULAR HEMOGLOBIN CONC (BEAKER) (test 35.1 GM/DL 32.0-36.0 uhaq=775) RED CELL DISTRIBUTION WIDTH (BEAKER) (test 13.1 % 10.3-14.2 qdij=343) PLATELET COUNT (BEAKER) (test gtvf=094) 204 K/CU MM 150-430 MEAN PLATELET VOLUME (BEAKER) (test vydm=285) 7.7 fL 6.5-10.5 NUCLEATED RED BLOOD CELLS (BEAKER) (test 0 /100 WBC 0-0 rzzd=507) NEUTROPHILS RELATIVE PERCENT (BEAKER) (test 54 % uzdm=615) LYMPHOCYTES RELATIVE PERCENT (BEAKER) (test 30 % icas=641) MONOCYTES RELATIVE PERCENT (BEAKER) (test 14 % jhpc=382) EOSINOPHILS RELATIVE PERCENT (BEAKER) (test 2 % flqw=488) BASOPHILS RELATIVE PERCENT (BEAKER) (test 0 % ktuu=960) NEUTROPHILS ABSOLUTE COUNT (BEAKER) (test 4.09 K/ L 1.80-8.00 pghc=664) LYMPHOCYTES ABSOLUTE COUNT (BEAKER) (test 2.23 K/ L 1.48-4.50 zpcv=842) MONOCYTES ABSOLUTE COUNT (BEAKER) (test 1.05 K/ L 0.00-1.30 xkyd=555) EOSINOPHILS ABSOLUTE COUNT (BEAKER) (test 0.13 K/ L 0.00-0.50 zjrz=380) BASOPHILS ABSOLUTE COUNT (BEAKER) (test 0.03 K/ L 0.00-0.20 unzn=650) [id number] 03:18:00 Test Item Value Reference Range Comments PARTIAL THROMBOPLASTIN TIME (BEAKER) (test 42.6 seconds 22.5-36.0 fnpb=576) PROTHROMBIN [id number] 03:17:00 Test Item Value Reference Range Comments PROTIME (BEAKER) (test cmqe=154) 13.0 seconds 11.7-14.7 INR (BEAKER) (test meqy=946) 1.0 <=5.9 RECOMMENDED COUMADIN/WARFARIN INR THERAPY RANGESSTANDARD DOSE: 2.0 - 3.0 Includes: PROPHYLAXIS forvenous thrombosis, systemic embolization; TREATMENT for venous thrombosis and/or pulmonary embolus.HIGH RISK: Target INR is 2.5-3.5 for patients with mechanical heart valves.BASIC METABOLIC [id number] 02:48: 00 Test Item Value Reference Range Comments SODIUM (BEAKER) (test 136 meq/L 136-145 enmq=048) POTASSIUM (BEAKER) (test 4.2 meq/L 3.5-5.1 xxtq=203) CHLORIDE (BEAKER) (test 101 meq/L 98-107 lnap=652) CO2 (BEAKER) (test 22 meq/L 22-29 kzwc=098) BLOOD UREA NITROGEN 7 mg/dL 7-21 (BEAKER) (test grty=677) CREATININE (BEAKER) 0.66 mg/dL 0.57-1.25 (test psbf=809) GLUCOSE RANDOM (BEAKER) 86 mg/dL 70-105 (test zqdc=382) CALCIUM (BEAKER) (test 10.1 mg/dL 8.4-10.2 ipak=584) EGFR (BEAKER) (test 120 mL/min/1.73 sq INSUFFICIENT CLINICAL DATA cqwl=6028) m TO CALCULATE ESTIMATED GFR. CBC W/PLT COUNT & AUTO [id number] 02:47:00 Test Item Value Reference Range Comments WHITE BLOOD CELL COUNT (BEAKER) (test uyvr=702) 13.9 K/ L 4.0-10.0 RED BLOOD CELL COUNT (BEAKER) (test njgg=312) 4.54 M/ L 4.20-5.80 HEMOGLOBIN (BEAKER) (test jbnu=134) 15.2 GM/DL 13.0-16.8 HEMATOCRIT (BEAKER) (test dbri=389) 45.1 % 40.0-50.0 MEAN CORPUSCULAR VOLUME (BEAKER) (test yduc=679) 99.4 fL 82.0-98.0 MEAN CORPUSCULAR HEMOGLOBIN (BEAKER) (test 33.4 pg 27.0-33.0 yvdi=651) MEAN CORPUSCULAR HEMOGLOBIN CONC (BEAKER) (test 33.6 GM/DL 32.0-36.0 nfpy=928) RED CELL DISTRIBUTION WIDTH (BEAKER) (test 13.2 % 10.3-14.2 bghk=996) PLATELET COUNT (BEAKER) (test evsc=322) 230 K/CU MM 150-430 MEAN PLATELET VOLUME (BEAKER) (test qrdd=188) 8.1 fL 6.5-10.5 NUCLEATED RED BLOOD CELLS (BEAKER) (test 0 /100 WBC 0-0 zwph=377) NEUTROPHILS RELATIVE PERCENT (BEAKER) (test 71 % pthk=162) LYMPHOCYTES RELATIVE PERCENT (BEAKER) (test 16 % phya=639) MONOCYTES RELATIVE PERCENT (BEAKER) (test 12 % vebu=011) EOSINOPHILS RELATIVE PERCENT (BEAKER) (test 0 % jmfi=832) BASOPHILS RELATIVE PERCENT (BEAKER) (test 0 % ezqq=097) NEUTROPHILS ABSOLUTE COUNT (BEAKER) (test 9.86 K/ L 1.80-8.00 jlpz=263) LYMPHOCYTES ABSOLUTE COUNT (BEAKER) (test 2.22 K/ L 1.48-4.50 xndt=162) MONOCYTES ABSOLUTE COUNT (BEAKER) (test 1.72 K/ L 0.00-1.30 lmpf=581) EOSINOPHILS ABSOLUTE COUNT (BEAKER) (test 0.04 K/ L 0.00-0.50 vdkx=689) BASOPHILS ABSOLUTE COUNT (BEAKER) (test 0.02 K/ L 0.00-0.20 jqzu=133) 0.00
[2018-10-20 03:37] LABS: Protime INR 1.08
[2018-10-20 03:38] LABS: Absolute Lymphocytes (CBC) 2.4 K/uL (0.7-4.9); Basophils % 0.9 % (0-1.3); Eosinophils % 1.4 % (0-4.4); Hematocrit 40.6 % (39.6-49.0); Lymphocytes % 37.2 % (15.3-44.8); Monocytes % 11.9 % (3.3-12.3); RBC Red Blood Cell Count 4.18 M/uL (4.33-5.43)
[2018-10-20 03:49] LABS: ALT/SGPT 12 U/L (12-78); AST/SGOT 8 U/L (15-37); Alkaline Phosphatase 62 U/L (45-117); BUN Blood Urea Nitrogen 11 mg/dL (7-18); Bicarbonate 27 mmol/L (21-32); Bilirubin Direct < 0.1 mg/dL (0-0.2); Bilirubin Total 0.2 mg/dL (0.2-1.0); Glucose Level 86 mg/dL (74-106); Magnesium 2.3 mg/dL (1.8-2.4); NT PRO-BNP 312 pg/mL (<125); Potassium 4.1 mmol/L (3.5-5.1); Protein, Total 6.9 g/dL (6.4-8.2); Sodium Level 144 mmol/L (136-145); Troponin (Emerg Dept Use Only) < 0.02 ng/mL (0.0-0.045)
[2018-10-20] MEDS ORDERED: dexAMETHasone 10 MG/ML VIAL ONE (05:41)
[2018-10-20] MEDS ORDERED: FENTANYL CITR 100 MCG/2 ML ONE (05:43)
--- NOTE | 2018-10-20 07:10 | EDPHYS ---
Physician Documentation [facility] Name: Bryan Graf Age: 67 yrs Sex: Male : 1950 Arrival Date: 10/20/2018 Time: 02:52 Bed 19 Private MD: ED Physician Ren Coronado HPI: 10/20 04:28 This 67 yrs old Male presents to ER via EMS with complaints of Headache. wa 04:28 The patient complains of pain to the diffuse. The patient describes the headache as wa aching. 04:31 Onset: The symptoms/episode began/occurred 2 day(s) ago. Associated signs and symptoms: wa Pertinent positives: difficulty walking x 2 days, Pertinent negatives: altered mental status, fever. Severity of symptoms: At its worst the pain was severe, in the emergency department the pain is unchanged. Headache History: Denies prior headaches. The symptoms are alleviated by nothing. the symptoms are aggravated by nothing. The patient has not experienced similar symptoms in the past. The patient has not recently seen a physician. Historical: - Allergies: 02:59 Aspirin; ak1 02:59 PENICILLINS; ak1 - Home Meds: 03:16 Keppra 1,000 mg Oral tab 1 tab every 12 hours [Active]; Depakote 500 mg Oral TbEC 1 tab ak1 2 times per day [Active]; oxycodone 30 mg Oral tab three times a day [Active]; acetaminophen 325 mg Oral tab as needed [Active]; - PMHx: 02:59 Chronic pain; CVA; Hypertension; swelling and pain to L lower leg; Seizures; Pneumonia; ak1 - PSHx: 02:59 Heart stents(November 2017); ak1 - Immunization history:: Adult Immunizations up to date. - Social history:: Smoking status: Patient/guardian denies using tobacco. - Ebola Screening: : No symptoms or risks identified at this time. - Family history:: not pertinent. - Hospitalizations: : No recent hospitalization is reported. ROS: 04:32 Constitutional: Negative for fever, chills, and weight loss, Eyes: Negative for injury, wa pain, redness, and discharge, ENT: Negative for injury, pain, and discharge, Neck: Negative for injury, pain, and swelling, Cardiovascular: Negative for chest pain, palpitations, and edema, Respiratory: Negative for shortness of breath, cough, wheezing, and pleuritic chest pain, Abdomen/GI: Negative for abdominal pain, nausea, vomiting, diarrhea, and constipation, Back: Negative for injury and pain, : Negative for injury, bleeding, discharge, and swelling, MS/Extremity: Negative for injury and deformity, Skin: Negative for injury, rash, and discoloration. 04:32 Neuro: Positive for headache, Negative for loss of consciousness, numbness, seizure activity, speech changes. 04:32 All other systems are negative. Exam: 04:32 Constitutional: This is a well developed, well nourished patient who is awake, alert, wa and in no acute distress. Head/Face: Normocephalic, atraumatic. Eyes: Pupils equal round and reactive to light, extra-ocular motions intact. Lids and lashes normal. Conjunctiva and sclera are non-icteric and not injected. Cornea within normal limits. Periorbital areas with no swelling, redness, or edema. ENT: Nares patent. No nasal discharge, no septal abnormalities noted. Tympanic membranes are normal and external auditory canals are clear. Oropharynx with no redness, swelling, or masses, exudates, or evidence of obstruction, uvula midline. Mucous membranes moist. Neck: Trachea midline, no thyromegaly or masses palpated, and no cervical lymphadenopathy. Supple, full range of motion without nuchal rigidity, or vertebral point tenderness. No Meningismus. Chest/axilla: Normal chest wall appearance and motion. Nontender with no deformity. No lesions are appreciated. Cardiovascular: Regular rate and rhythm with a normal S1 and S2. No gallops, murmurs, or rubs. Normal PMI, no JVD. No pulse deficits. Respiratory: Lungs have equal breath sounds bilaterally, clear to auscultation and percussion. No rales, rhonchi or wheezes noted. No increased work of breathing, no retractions or nasal flaring. Abdomen/GI: Soft, non-tender, with normal bowel sounds. No distension or tympany. No guarding or rebound. No evidence of tenderness throughout. Back: No spinal tenderness. No costovertebral tenderness. Full range of motion. Skin: Warm, dry with normal turgor. Normal color with no rashes, no lesions, and no evidence of cellulitis. MS/ Extremity: Pulses equal, no cyanosis. Neurovascular intact. Full, normal range of motion. Psych: Awake, alert, with orientation to person, place and time. Behavior, mood, and affect are within normal limits. 04:32 Neuro: Orientation: is normal, Mentation: is normal, Cranial nerves: grossly normal, Motor: Strength is 3/5 in the left arm and left leg. Vital Signs: 02:54 BP 148 / 69; Pulse 53; Resp 16; Temp 98.4; Pulse Ox 99% on R/A; Weight 68.04 kg (R); ak1 Height 5 ft. 8 in. (172.72 cm) (R); Pain 8/10; 03:30 BP 123 / 72; Pulse 54; Resp 16 S; Pulse Ox 96% on R/A; cc3 04:50 BP 116 / 68; Pulse 54; Resp 17 S; Pulse Ox 96% on R/A; cc3 05:12 BP 131 / 64; Pulse 51; Resp 16 S; Pulse Ox 96% on R/A; cc3 06:13 BP 135 / 73; Pulse 52; Resp 15 S; Pulse Ox 96% on R/A; cc3 02:54 Body Mass Index 22.81 (68.04 kg, 172.72 cm) ak1 MDM: 03:08 Patient medically screened. 04:33 Differential diagnosis: SAMS. r/o acute CVA. 07:08 Data reviewed: vital signs, nurses notes. 07:08 Test interpretation: by ED physician or midlevel provider: labs noted wnl. Head CT wa noted with no acute process. Response to treatment: the patient's symptoms have markedly improved after treatment. 07:20 Test interpretation: by ED physician or midlevel provider: HR 54. sinus marie. no acute wa signs of ischemia. 10/20 03:09 Order name: Basic Metabolic Panel mt 10/20 03:09 Order name: CBC with Diff mt 10/20 03:09 Order name: LFT's mt 10/20 03:09 Order name: Magnesium; Complete Time: 04:35 mt 10/20 03:09 Order name: NT PRO-BNP; Complete Time: 04:34 mt 10/20 03:09 Order name: PT-INR; Complete Time: 04:35 mt 10/20 03:09 Order name: Troponin (emerg Dept Use Only); Complete Time: 04:35 mt 10/20 03:09 Order name: XRAY Chest (1 view) mt 10/20 03:10 Order name: Basic Metabolic Panel; Complete Time: 04:35 EDMS 10/20 03:10 Order name: CBC with Automated Diff; Complete Time: 04:34 EDMS 10/20 03:10 Order name: Liver (Hepatic) Function; Complete Time: 04:35 EDMS 10/20 03:38 Order name: CT Head Brain wo Cont wa 10/20 03:09 Order name: EKG; Complete Time: 03:11 mt 10/20 03:09 Order name: Cardiac monitoring; Complete Time: 03:13 mt 10/20 03:09 Order name: EKG - Nurse/Tech; Complete Time: 03:23 mt 10/20 03:09 Order name: IV Saline Lock; Complete Time: 03:43 mt 10/20 03:09 Order name: Labs collected and sent; Complete Time: 03:15 mt 10/20 03:09 Order name: O2 Per Protocol; Complete Time: 03:13 mt 10/20 03:09 Order name: O2 Sat Monitoring; Complete Time: 03:13 mt Administered Medications: 05:30 Drug: Decadron - Dexamethasone 10 mg Route: IVP; Site: right hand; cc3 06:16 Follow up: Response: No adverse reaction; Pain is decreased cc3 05:35 Drug: fentaNYL (PF) 50 mcg Route: IVP; Site: right hand; cc3 06:15 Follow up: Response: No adverse reaction; Pain is decreased cc3 Disposition: 10/20/18 07:09 Discharged to Home. Impression: acute headache. - Condition is Stable. - Discharge Instructions: General Headache Without Cause, Hizb-ig-[id number]. - Prescriptions for Zofran 4 mg Oral Tablet - take 1 tablet by ORAL route every 12 hours As needed; 20 tablet. - SBAR form, Medication Reconciliation Form, Thank You Letter, Antibiotic Education, Prescription Opioid Use form. - Follow up: Carroll Jacobson MD; When: 1 - 2 days; Reason: Recheck today's complaints. - Problem is new. - Symptoms have improved. - Notes: take your pain medication as needed. follow up with the neurologist as discussed Signatures: Dispatcher [employer] Kia Pulido RN RN ak1 Marianela Villegas mt, William, MD MD wa Su, Abhishek, RN RN Tatum Conn cc3 Corrections: (The following items were deleted from the chart) 07:28 07:09 10/20/2018 07:09 Discharged to Home. Impression: acute headache. Condition is bp Stable. Forms are SBAR form, Medication Reconciliation Form, Thank You Letter, Antibiotic Education, Prescription Opioid Use. Follow up: Carroll Jacobson; When: 1 - 2 days; Reason: Recheck today's complaints. Problem is new. Symptoms have improved. [email or web address]
--- NOTE | 2018-10-20 07:10 | ER ---
Nurse's Notes [facility] Name: Bryan Graf Age: 67 yrs Sex: Male : 1950 Arrival Date: 10/20/2018 Time: 02:52 Bed 19 Private MD: Diagnosis: acute headache Presentation: 10/20 02:55 Presenting complaint: EMS states: pt called EMS for headache X2 days with ak1 increased pain today. pt denies N/V. Transition of care: patient was not received from another setting of care. Onset of symptoms is unknown. Risk Assessment: Do you want to hurt yourself or someone else? Patient reports no desire to harm self or others. Initial Sepsis Screen: Does the patient meet any 2 criteria? No. Patient's initial sepsis screen is negative. Does the patient have a suspected source of infection? No. Patient's initial sepsis screen is negative. Care prior to arrival: None. 02:55 Method Of Arrival: EMS: [facility] ak1 02:55 Acuity: GELACIO 3 ak1 Triage Assessment: 02:59 General: Appears ill, slender, Behavior is cooperative, drowsy, quiet. ak1 Historical: - Allergies: 02:59 Aspirin; ak1 02:59 PENICILLINS; ak1 - Home Meds: 03:16 Keppra 1,000 mg Oral tab 1 tab every 12 hours [Active]; Depakote 500 mg Oral TbEC 1 tab ak1 2 times per day [Active]; oxycodone 30 mg Oral tab three times a day [Active]; acetaminophen 325 mg Oral tab as needed [Active]; - PMHx: 02:59 Chronic pain; CVA; Hypertension; swelling and pain to L lower leg; Seizures; Pneumonia; ak1 - PSHx: 02:59 Heart stents(November 2017); ak1 - Immunization history:: Adult Immunizations up to date. - Social history:: Smoking status: Patient/guardian denies using tobacco. - Ebola Screening: : No symptoms or risks identified at this time. - Family history:: not pertinent. - Hospitalizations: : No recent hospitalization is reported. Screenin:54 Abuse screen: Denies threats or abuse. Denies injuries from another. Nutritional cc3 screening: No deficits noted. Tuberculosis screening: No symptoms or risk factors identified. Fall Risk Ambulatory Aid- None/Bed Rest/Nurse Assist (0 pts). Gait- Normal/Bed Rest/Wheelchair (0 pts) Mental Status- Oriented to own ability (0 pts). Assessment: 02:54 General: Appears in no apparent distress. uncomfortable, Behavior is calm, cooperative, cc3 appropriate for age. Pain: Complains of pain in head. 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 Speech is normal, Facial symmetry appears normal, Pupils are PERRLA, Intact. Cardiovascular: Denies chest pain, Capillary refill < 3 seconds Patient's skin is warm and dry. Respiratory: Airway is patent Respiratory effort is even, unlabored, Respiratory pattern is regular, symmetrical. GI: Abdomen is round non-distended. : No signs and/or symptoms were reported regarding the genitourinary system. EENT: No signs and/or symptoms were reported regarding the EENT system. Derm: Skin is intact, is fragile, Skin is mottled. Musculoskeletal: Circulation, motion, and sensation intact. Range of motion: limited in lower limbs. 03:18 Reassessment: Patient appears in no apparent distress at this time. Patient and/or cc3 family updated on plan of care and expected duration. Pain level reassessed. Patient is alert, oriented x 3, equal unlabored respirations, skin warm/dry/pink. 04:43 Reassessment: Patient appears in no apparent distress at this time. Patient and/or cc3 family updated on plan of care and expected duration. Pain level reassessed. Patient is alert, oriented x 3, equal unlabored respirations, skin warm/dry/pink. Patient came back from CT scan department, awaiting result. 05:07 Reassessment: Patient appears in no apparent distress at this time. Patient and/or cc3 family updated on plan of care and expected duration. Pain level reassessed. Patient is alert, oriented x 3, equal unlabored respirations, skin warm/dry/pink. 06:16 Reassessment: Patient appears in no apparent distress at this time. Patient and/or cc3 family updated on plan of care and expected duration. Pain level reassessed. Patient is alert, oriented x 3, equal unlabored respirations, skin warm/dry/pink. Patient said his headache was decreased from NRS 10/10 to 8/10. Patient states feeling better. Patient states symptoms have improved. 07:00 Reassessment: RECD REPORT FROM TATUM RUIZ. 67YO WM P/W HEADACHE. ALL CURRENT ORDERS bp COMPLETED, NO ACUTE S/S. DISPO PENDING. 07:26 Reassessment: PT D/C HOME AMBULATORY WITH FAMILY, DX WITH ACUTE HEADACHE. bp Vital Signs: 02:54 BP 148 / 69; Pulse 53; Resp 16; Temp 98.4; Pulse Ox 99% on R/A; Weight 68.04 kg (R); ak1 Height 5 ft. 8 in. (172.72 cm) (R); Pain 8/10; 03:30 BP 123 / 72; Pulse 54; Resp 16 S; Pulse Ox 96% on R/A; cc3 04:50 BP 116 / 68; Pulse 54; Resp 17 S; Pulse Ox 96% on R/A; cc3 05:12 BP 131 / 64; Pulse 51; Resp 16 S; Pulse Ox 96% on R/A; cc3 06:13 BP 135 / 73; Pulse 52; Resp 15 S; Pulse Ox 96% on R/A; cc3 02:54 Body Mass Index 22.81 (68.04 kg, 172.72 cm) ak1 ED Course: 02:52 Patient arrived in ED. ds1 02:54 Tatum Ramirez is Primary Nurse. cc3 02:54 Arm band placed on Patient placed in an exam room, on a stretcher, on telemetry monitor, ak1 on pulse oximetry, Patient notified of wait time. 02:54 Patient has correct armband on for positive identification. Placed in gown. Bed in low cc3 position. Call light in reach. Side rails up X 1. playground monitor on. Pulse ox on. NIBP on. 02:58 Triage completed. ak1 03:08 Ren Coronado MD is Attending Physician. wa 03:40 Inserted saline lock: 22 gauge in right hand, using aseptic technique. cc3 03:52 XRAY Chest (1 view) In Process Unspecified. EDMS 04:35 CT Head Brain wo Cont In Process Unspecified. EDMS 07:00 Report given to JOSEPH Weiss. cc3 07:06 Abhishek Blue RN is Primary Nurse. bp 07:09 Carroll Jacobson MD is Referral Physician. wa 07:27 No provider procedures requiring assistance completed. IV discontinued, intact, bp bleeding controlled, No redness/swelling at site. Pressure dressing applied. Administered Medications: 05:30 Drug: Decadron - Dexamethasone 10 mg Route: IVP; Site: right hand; cc3 06:16 Follow up: Response: No adverse reaction; Pain is decreased cc3 05:35 Drug: fentaNYL (PF) 50 mcg Route: IVP; Site: right hand; cc3 06:15 Follow up: Response: No adverse reaction; Pain is decreased cc3 Outcome: 07:09 Discharge ordered by MD. wa 07:27 Discharged to home ambulatory, with family. bp 07:27 Condition: stable 07:27 Discharge instructions given to patient, family, Instructed on discharge instructions, follow up and referral plans. medication usage, Demonstrated understanding of instructions, follow-up care, medications, Prescriptions given X 1. 07:28 Patient left the ED. bp Signatures: Dispatcher [employer] EDKS Heidi Goetz ds1 Kia Reid RN RN ak1 Ren Coronado MD MD wa Peltier, Brian RN RN Tatum Conn cc3
[2018-10-20 07:33] VITALS: TEMP 98.4
[2018-10-20 07:35] VITALS: O2SAT 96
[2018-10-20 07:38] VITALS: BP 135/73
--- NOTE | 2018-10-20 09:14 | RAD REPORT ---
EXAM DESCRIPTION: RAD - Chest Single View - 10/20/2018 3:52 am CLINICAL HISTORY: Chest pain COMPARISON: February 2018 TECHNIQUE: AP portable chest image was obtained 0348 hours . FINDINGS: Chronic interstitial lung disease is evident. No new mass or consolidation. No new or prog ressive failure or volume overload. Interstitial pattern matches the comparison. Trachea is midline. Sternotomy wires are in place. CABG surgical changes are noted. Heart and vascula ture are normal. No measurable pleural effusion and no pneumothorax. No acute bony abnormality seen. No acute aortic findings suspected. IMPRESSION: No acute cardiopulmonary process. Chronic chest findings detailed above are stable from February 2018.
--- NOTE | 2018-10-20 09:34 | RAD REPORT ---
EXAM DESCRIPTION: CT - Head Brain Wo Cont - 10/20/2018 6:29 am CLINICAL HISTORY: The patient is 67 years old and is Male; HEADACHE TECHNIQUE: Axial computed tomography images of the head/brain without intravenous contrast. Sagitt al and coronal reformatted images were created and reviewed. This CT exam was performed using one o r more of the following dose reduction techniques: automated exposure control, adjustment of the mA and/or kV according to patient size, and/or use of iterative reconstruction technique. COMPARISON: CT head March 02, 2018. FINDINGS: BRAIN: There is diffuse cerebral atrophy present, consistent with this patient's age. There is patchy hypoattenuation of the deep white matter which is non-specific, but most likely owing to chronic small vessel ischemic change in a patient of this age group. No intracranial hemorrhage , mass effect, or midline shift is seen. There are no extra-axial fluid collections. VENTRICLES: Unremarkable. No ventriculomegaly. BONES/JOINTS: No acute fracture. SOFT TISSUES: Unremarkable. VASCULATURE: Atherosclerosis of intracranial vessels is present. SINUSES: Unremarkable as visualized. No acute sinusitis. MASTOID AIR CELLS: Unremarkable as visualized. No mastoid effusion. IMPRESSION: Age-related atrophy and chronic white matter ischemic changes, with no evidence of an ac maryellen intracranial abnormality. Electronically signed by: Ashly Fragoso MD 10/20/2018 4:59 AM CDT Due to temporary technical issues with the PACS/Fluency reporting system, reports are being signed by the in house radiologist as a courtesy to ensure prompt reporting. The interpreting radiologist is f ully responsible for the content of the report.
--- NOTE | 2018-10-20 12:51 | EKG ---
Test Date: 2018-10-20 Test Time: 03:20:58 Site Surveyor: MERON MEASUREMENT RESULTS: Intervals: Rate: 54 MD: 180 QRSD: 98 QT: 434 QTc: 411 [place]: P: 88 MD: 180 QRS: 3 T: -23 INTERPRETIVE STATEMENTS: Sinus bradycardia Otherwise normal ECG Compared to ECG 03/02/2018 16:21:09 Sinus rhythm no longer present Electronically Signed On 10-20-18 12:49:31 CDT by Manuelito Nolan
== END 2018-10-20 07:28 | disposition home or self-care (01) ==
LOC: ER 02:51
DX: R51 Headache (principal); I10 Essential (primary) hypertension; Z86.73 Personal history of transient ischemic attack (TIA), and cerebral infarction without residual deficits; Z79.899 Other long term (current) drug therapy; Z88.6 Allergy status to analgesic agent; Z88.0 Allergy status to penicillin
CPT/HCPCS: 93005; 85025; 80048; 36415; 83735; 85610; 80076; 84484; 83880; 70450; 71045; 96375; 96374; 99284; J3010; J1100

== ENCOUNTER 2019-01-25 14:35 | Emergency (ER) | payer OTHER ==
[2019-01-25] MEDS ORDERED: DIAZEPAM 2 MG TABLET ONE (14:54)
[2019-01-25] MEDS ORDERED: HYDROCODONE/APAP 5/325 MG TAB ONE (14:54)
--- NOTE | 2019-01-25 15:50 | RAD REPORT ---
EXAM DESCRIPTION: CT - Stone Protocol - 01/25/2019 3:23 pm CLINICAL HISTORY: Abdominal pain, bilateral leg and groin pain COMPARISON: CT imaging February 2018 TECHNIQUE: Axial 5 mm thick images were obtained without oral or IV contrast. The [id number] span s the entirety of the system including uppermost abdomen and lung bases. All CT scans are performed using dose optimization technique as appropriate and may include automated exposure control or mA/KV adjustment according to patient size. FINDINGS: No hydronephrosis is present and no obstructing ureteral calculi. No suspicious renal mass es. Isodense masses and pyelonephritis are not excluded on a stone protocol CT scan. No urinary bladd er suspicious finding. No significant adrenal finding. Imaged portions of the liver, spleen and pancreas show no suspicious findings on non-contrast imaging . Gallbladder is contracted. Punctate calcifications are seen and could be wall calcifications or mor e likely small gallstones. No biliary tree dilatation. No suspicious bowel findings. Left-sided diverticulosis is present without diverticulitis. No hernia, mass or bulky lymphadenopathy noted. No free air, free fluid or inflammatory stranding. Disc and bony degenerative changes are present. There are surgical changes at the L4-5 level. Dense aortoiliac and mesenteric arterial tree calcifications. No groin mass or abnormal lymphadenopat hy IMPRESSION: Noncontrast CT abdomen and pelvis imaging, as detailed above, shows no acute finding. Nonacute findings detailed in the body of the report. Isodense masses and pyelonephritis are not excluded on stone protocol technique.
--- NOTE | 2019-01-25 16:28 | ER ---
Nurse's Notes [facility] Name: Bryan Graf Age: 68 yrs Sex: Male : 1950 Arrival Date: 01/25/2019 Time: 14:37 Bed 13 Private MD: Adam Botello H Diagnosis: Pain in left leg;Pain in right leg Presentation: 01/25 14:38 Presenting complaint: Patient states: pain in KRZYSZTOF groin and legs, has been going on for la1 a long time but is worse the last few days. Transition of care: patient was not received from another setting of care. Onset of symptoms was January 25, 2019. Risk Assessment: Do you want to hurt yourself or someone else? Patient reports no desire to harm self or others. Initial Sepsis Screen: Does the patient meet any 2 criteria? No. Patient's initial sepsis screen is negative. Does the patient have a suspected source of infection? No. Patient's initial sepsis screen is negative. Care prior to arrival: None. 14:38 Method Of Arrival: Wheelchair la1 14:38 Acuity: GELACIO 3 la1 Historical: - Allergies: 14:39 Aspirin; la1 14:39 PENICILLINS; la1 - PMHx: 14:39 CVA; Chronic pain; Hypertension; Pneumonia; Seizures; swelling and pain to L lower leg; la1 - Immunization history:: Adult Immunizations up to date. - Social history:: Smoking status: Patient/guardian denies using tobacco. - Ebola Screening: : No symptoms or risks identified at this time. Screenin:45 Abuse screen: Denies threats or abuse. Denies injuries from another. Nutritional jl7 screening: No deficits noted. Tuberculosis screening: No symptoms or risk factors identified. Fall Risk Fall in past 12 months (25 points). Secondary diagnosis (15 points) impaired mobility, No IV (0 pts). Ambulatory Aid- Crutches/Cane/Walker (15 pts). Gait- Weak (10 pts.). Mental Status- Overestimates/Forgets Limitations (15 pts.). Total Thacker Fall Scale indicates High Risk Score (45 or more points). Fall prevention measures have been instituted. Side Rails Up X 2 Placed Close to Nursing Station Frequent Obs/Assessments Occuring Family Present and informed to notify staff if the need to leave the bedside As available patient and family educated on Fall Prevention Program and Strategies. Assessment: 14:45 General: Appears in no apparent distress. uncomfortable, Behavior is cooperative, jl7 anxious. Pain: Complains of pain in right inguinal area and left inguinal area Pain radiates to right leg and left leg Pain currently is 10 out of 10 on a pain scale. Quality of pain is described as stabbing, Pain began 2-3 days ago. Is continuous. Neuro: Level of Consciousness is awake, alert, obeys commands, Oriented to person, place, time, situation. Cardiovascular: Patient's skin is warm and dry. Respiratory: Airway is patent Respiratory effort is even, unlabored, Respiratory pattern is regular, symmetrical. Derm: Skin is pink, warm \T\ dry. Musculoskeletal: Reports pain in right leg and left leg. 15:45 Reassessment: Patient appears in no apparent distress at this time. No changes from jl7 previously documented assessment. Patient and/or family updated on plan of care and expected duration. Pain level reassessed. Patient is alert, oriented x 3, equal unlabored respirations, skin warm/dry/pink. Vital Signs: 14:39 BP 124 / 66; Pulse 66; Resp 16; Temp 98.3; Pulse Ox 99% on R/A; Weight 68.04 kg; Height la1 5 ft. 8 in. (172.72 cm); 15:30 Pain 9/10; jl7 15:30 Pain 5/10; jl7 16:00 BP 125 / 70; Pulse 70; Resp 16 S; Pulse Ox 100% on R/A; Pain 9/10; jl7 14:39 Body Mass Index 22.81 (68.04 kg, 172.72 cm) la1 ED Course: 14:37 Patient arrived in ED. mr 14:37 Adam Botello DO is Private Physician. mr 14:38 Triage completed. la1 14:39 Arm band placed on right wrist. la1 14:40 Leonides Encarnacion, JOSEPH is Primary Nurse. jl7 14:45 Patient has correct armband on for positive identification. Placed in gown. Bed in low jl7 position. Call light in reach. Side rails up X2. Warm blanket given. 14:48 Cherelle Amado FNP-C is PHCP. kb 14:48 Edil Pace MD is Attending Physician. kb 15:24 CT Stone Protocol In Process Unspecified. EDMS 15:53 Ultrasound completed. Patient tolerated well. sg3 15:54 US Extremity Venous W Compression Krzysztof In Process Unspecified. EDMS 16:39 No provider procedures requiring assistance completed. Patient did not have IV access jl7 during this emergency room visit. Administered Medications: 15:03 Drug: [place] 5 mg-325 mg 1 tabs Route: PO; jl7 15:30 Follow up: Pain 5/10 Adult; Response: No adverse reaction; Pain is decreased jl7 15:03 Drug: Valium 2 mg Route: PO; jl7 15:30 Follow up: Pain 9/10 Adult; Response: No adverse reaction; Pain is decreased jl7 Outcome: 16:27 Discharge ordered by MD. kb 16:39 Discharged to home via wheelchair. jl7 16:39 Condition: stable 16:39 Discharge instructions given to patient, family, Instructed on discharge instructions, follow up and referral plans. medication usage, Demonstrated understanding of instructions, follow-up care, medications, Prescriptions given X 2. 16:48 Patient left the ED. jl7 Signatures: Dispatcher [employer] EDMS Cherelle Amado, BAND NAILERNestorC BAND NAILER-[place] LondonCatherine mr Drew Edwards, RN RN laLeonides Henson RN RN jl7 Jerri Santillan sg3
--- NOTE | 2019-01-25 16:29 | EDPHYS ---
Physician Documentation [facility] Name: Bryan Graf Age: 68 yrs Sex: Male : 1950 Arrival Date: 01/25/2019 Time: 14:37 Bed 13 Private MD: Adam Botello H ED Physician Edil Pace HPI: 01/25 15:15 This 68 yrs old Male presents to ER via Wheelchair with complaints of Groin kb Pain, Leg Pain. 15:15 The patient presents with pain, that is acute. The complaints affect the left leg and kb right leg. Context: The problem was sustained at an unknown site, resulted from an unknown cause, the patient can fully bear weight, can ambulate using a cane. Onset: The symptoms/episode began/occurred 1 week(s) ago. Modifying factors: The symptoms are alleviated by nothing. the symptoms are aggravated by nothing. Associated signs and symptoms: The patient has no apparent associated signs or symptoms. Treatment prior to arrival includes: no previous treatment. Severity of symptoms: At their worst the symptoms were moderate, in the emergency department the symptoms are unchanged. The patient has not experienced similar symptoms in the past. The patient has not recently seen a physician. Historical: - Allergies: 14:39 Aspirin; la1 14:39 PENICILLINS; la1 - PMHx: 14:39 CVA; Chronic pain; Hypertension; Pneumonia; Seizures; swelling and pain to L lower leg; la1 - Immunization history:: Adult Immunizations up to date. - Social history:: Smoking status: Patient/guardian denies using tobacco. - Ebola Screening: : No symptoms or risks identified at this time. ROS: 15:14 Constitutional: Negative for fever, chills, and weight loss, Cardiovascular: Negative kb for chest pain, palpitations, and edema, Respiratory: Negative for shortness of breath, cough, wheezing, and pleuritic chest pain, Abdomen/GI: Negative for abdominal pain, nausea, vomiting, diarrhea, and constipation, Back: Negative for injury and pain, Skin: Negative for injury, rash, and discoloration, Neuro: Negative for headache, weakness, numbness, tingling, and seizure. 15:14 : Positive for groin pain, Negative for penile pain, testicular pain 15:14 MS/extremity: Positive for pain. Exam: 15:15 Constitutional: This is a well developed, well nourished patient who is awake, alert, kb and in no acute distress. Head/Face: Normocephalic, atraumatic. ENT: Nares patent. No nasal discharge, no septal abnormalities noted. Tympanic membranes are normal and external auditory canals are clear. Oropharynx with no redness, swelling, or masses, exudates, or evidence of obstruction, uvula midline. Mucous membranes moist. Neck: Trachea midline, no thyromegaly or masses palpated, and no cervical lymphadenopathy. Supple, full range of motion without nuchal rigidity, or vertebral point tenderness. No Meningismus. Chest/axilla: Normal chest wall appearance and motion. Nontender with no deformity. No lesions are appreciated. Cardiovascular: Regular rate and rhythm with a normal S1 and S2. No gallops, murmurs, or rubs. Normal PMI, no JVD. No pulse deficits. Respiratory: Lungs have equal breath sounds bilaterally, clear to auscultation and percussion. No rales, rhonchi or wheezes noted. No increased work of breathing, no retractions or nasal flaring. Abdomen/GI: Soft, non-tender, with normal bowel sounds. No distension or tympany. No guarding or rebound. No evidence of tenderness throughout. Back: No spinal tenderness. No costovertebral tenderness. Full range of motion. Skin: Warm, dry with normal turgor. Normal color with no rashes, no lesions, and no evidence of cellulitis. MS/ Extremity: Pulses equal, no cyanosis. Neurovascular intact. Full, normal range of motion. Neuro: Awake and alert, GCS 15, oriented to person, place, time, and situation. Cranial nerves II-XII grossly intact. Motor strength 5/5 in all extremities. Sensory grossly intact. Cerebellar exam normal. Normal gait. Vital Signs: 14:39 BP 124 / 66; Pulse 66; Resp 16; Temp 98.3; Pulse Ox 99% on R/A; Weight 68.04 kg; Height la1 5 ft. 8 in. (172.72 cm); 15:30 Pain 9/10; jl7 15:30 Pain 5/10; jl7 16:00 BP 125 / 70; Pulse 70; Resp 16 S; Pulse Ox 100% on R/A; Pain 9/10; jl7 14:39 Body Mass Index 22.81 (68.04 kg, 172.72 cm) la1 MDM: 14:48 Patient medically screened. kb 15:14 Data reviewed: vital signs, nurses notes. Data interpreted: Pulse oximetry: on room air kb is 99 %. Interpretation: normal. 16:26 Counseling: I had a detailed discussion with the patient and/or guardian regarding: the kb historical points, exam findings, and any diagnostic results supporting the discharge/admit diagnosis, radiology results, the need for outpatient follow up, a family practitioner, to return to the emergency department if symptoms worsen or persist or if there are any questions or concerns that arise at home. 01/25 14:53 Order name: CT Stone Protocol; Complete Time: 15:54 kb 01/25 14:53 Order name: US Extremity Venous W Compression Aureliano kb Administered Medications: 15:03 Drug: [place] 5 mg-325 mg 1 tabs Route: PO; jl7 15:30 Follow up: Pain 5/10 Adult; Response: No adverse reaction; Pain is decreased jl7 15:03 Drug: Valium 2 mg Route: PO; jl7 15:30 Follow up: Pain 9/10 Adult; Response: No adverse reaction; Pain is decreased jl7 Disposition: 17:25 Co-signature as Attending Physician, Edil Pace MD I agree with the assessment and kdr plan of care. Disposition: 01/25/19 16:27 Discharged to Home. Impression: Pain in left leg, Pain in right leg. - Condition is Stable. - Discharge Instructions: Musculoskeletal Pain. - Prescriptions for Cyclobenzaprine 10 mg Oral Tablet - take 1 tablet by ORAL route every 8 hours As needed; 21 tablet. Diclofenac Sodium 75 mg Oral Tablet, Delayed Release (E.C.) - take 1 tablet by ORAL route 2 times per day As needed; 30 tablet. - Medication Reconciliation Form, Thank You Letter, Antibiotic Education, Prescription Opioid Use form. - Follow up: Emergency Department; When: As needed; Reason: Worsening of condition. Follow up: Private Physician; When: 2 - 3 days; Reason: Recheck today's complaints, Continuance of care, Re-evaluation by your physician. Signatures: Dispatcher [employer] EDDC Cherelle Amado, CHECO-C CHECO-Edil Mcgowan MD MD kdr Attema, Lee RN RN la1 Leonides Encarnacion RN RN jl7 Corrections: (The following items were deleted from the chart) 16:48 16:27 01/25/2019 16:27 Discharged to Home. Impression: Pain in left leg; Pain in right jl7 leg. Condition is Stable. Forms are Medication Reconciliation Form, Thank You Letter, Antibiotic Education, Prescription Opioid Use. Follow up: Emergency Department; When: As needed; Reason: Worsening of condition. Follow up: Private Physician; When: 2 - 3 days; Reason: Recheck today's complaints, Continuance of care, Re-evaluation by your physician. kb
[2019-01-25 16:53] VITALS: TEMP 98.3
[2019-01-25 16:55] VITALS: BP 125/70; O2SAT 100
--- NOTE | 2019-01-25 17:20 | RAD REPORT ---
EXAM DESCRIPTION: US - Extrem Venous W Compress Aureliano - 01/25/2019 3:53 pm CLINICAL HISTORY: Bilateral leg pain and swelling COMPARISON: None. TECHNIQUE: Real-time sonographic evaluation of the bilateral lower extremity common femoral, superfi cial femoral, popliteal and posterior tibial veins was performed. FINDINGS: Normal compressibility, flow augmentation, phasic flow and spontaneous flow are identified in the left and right lower extremity common femoral, superficial femoral, popliteal and posterior t ibial veins. No intraluminal filling defects seen. IMPRESSION: No DVT in either lower extremity.
== END 2019-01-25 16:48 | disposition home or self-care (01) ==
LOC: ER 14:35
DX: M79.605 Pain in left leg (principal); M79.604 Pain in right leg; Z88.0 Allergy status to penicillin
CPT/HCPCS: 74176; 76377; 93970; 99283

== ENCOUNTER 2019-03-20 10:47 | Emergency (ER) | payer OTHER ==
--- OUTSIDE RECORDS SUMMARY | 2019-03-20 10:56 | XMS REPORT ---
:1950 Author Organization [facility] Address [address] [place] [address] Care Team Providers Name Role Phone SIMONE MIKI LEATHA Unavailable Unavailable CLARY BRAY Unavailable Unavailable AUGUSTIN [...] Range Comments B-TYPE NATRIURETIC PEPTIDE (BEAKER) (test banp=264) 136 pg/mL 0-100 COMPREHENSIVE METABOLIC [id number] 05:53:00 Test Item Value Reference Range Comments TOTAL PROTEIN (BEAKER) 6.7 gm/dL 6.0-8.3 (test dysd=897) ALBUMIN (BEAKER) (test 3.1 g/dL 3.5-5.0 ecmv=1642) ALKALINE PHOSPHATASE 116 U/L 40-150 (BEAKER) (test lqva=986) BILIRUBIN TOTAL (BEAKER) < mg/dL 0.2-1.2 (test yqjb=016) SODIUM (BEAKER) (test 141 meq/L 136-145 rlww=492) POTASSIUM (BEAKER) (test 4.0 meq/L 3.5-5.1 ymal=303) CHLORIDE (BEAKER) (test 107 meq/L 98-107 wsux=146) CO2 (BEAKER) (test 25 meq/L 22-29 enip=647) BLOOD UREA NITROGEN 9 mg/dL 7-21 (BEAKER) (test bubd=530) CREATININE (BEAKER) (test 0.58 mg/dL 0.57-1.25 wcgk=823) GLUCOSE RANDOM (BEAKER) 94 mg/dL 70-105 (test ldum=027) CALCIUM (BEAKER) (test 8.7 mg/dL 8.4-10.2 xmtu=632) AST (SGOT) (BEAKER) (test 67 U/L 5-34 ttxk=203) ALT (SGPT) (BEAKER) (test 88 U/L 6-55 hrst=879) EGFR (BEAKER) (test 139 mL/min/1.73 sq ESTIMATED GFR IS NOT xjfi=2861) m ACCURATE CREATININE CLEARANCE IN PREDICTING GLOMERULAR FILTRATION RATE. ESTIMATED GFR IS NOT APPLICABLE FOR DIALYSIS PATIENTS. POCT-GLUCOSE [id number] 16:33:00 Test Item Value Reference Range Comments POC-GLUCOSE METER (BEAKER) 116 mg/dL 70-110 TESTED AT [address] (test okxm=3453) [place] [address] POCT-GLUCOSE [id number] 11:08:00 Test Item Value Reference Range Comments POC-GLUCOSE METER (BEAKER) 133 mg/dL 70-110 TESTED AT [address] (test cdyc=7366) [place] [address] POCT-GLUCOSE [id number] 06:11:00 Test Item Value Reference Range Comments POC-GLUCOSE METER (BEAKER) 105 mg/dL 70-110 TESTED AT [address] (test zudz=4187) [place] [address] POCT-GLUCOSE [id number] 20:28:00 Test Item Value Reference Range Comments POC-GLUCOSE METER (BEAKER) 124 mg/dL 70-110 TESTED AT [address] (test swnj=0362) [place] [address] POCT-GLUCOSE [id number] 16:46:00 Test Item Value Reference Range Comments POC-GLUCOSE METER (BEAKER) 113 mg/dL 70-110 TESTED AT [address] (test wina=9824) [place] [address] POCT-GLUCOSE [id number] 11:46:00 Test Item Value Reference Range Comments POC-GLUCOSE METER (BEAKER) 113 mg/dL 70-110 TESTED AT [address] (test spso=4983) [place] [address] URINE [id number] 09:54:00 Test Item Value Reference Range Comments CULTURE (BEAKER) (test KLEBSIELLA PNEUMONIAE >100,000 col/mL rlnf=7539) Klebsiella pneumoniae Amikacin (test code=1) Ampicillin + Sulbactam (test code=6) Aztreonam (test code=32) Cefepime (test code=51) Cefoxitin (test code=68) Ceftazidime (test code=27) Ceftriaxone (test code=52) Ertapenem (test code=38) Gentamicin (test code=18) Levofloxacin (test code=22) Meropenem (test code=34) Nitrofurantoin (test code=23) Piperacillin + Tazobactam (test code=29) Tetracycline (test code=2) Tobramycin (test code=25) Trimethoprim + Sulfamethoxazole (test code=47) POCT-GLUCOSE [id number] 06:46:00 Test Item Value Reference Range Comments POC-GLUCOSE METER (BEAKER) 111 mg/dL 70-110 TESTED AT [address] (test twhk=0194) [place] [address] POCT-GLUCOSE [id number] 20:48:00 Test Item Value Reference Range Comments POC-GLUCOSE METER (BEAKER) 128 mg/dL 70-110 TESTED AT [address] (test rnyi=5521) [place] [id number] POCT-GLUCOSE [id number] 16:00:00 Test Item Value Reference Range Comments POC-GLUCOSE METER (BEAKER) 127 mg/dL 70-110 TESTED AT [address] (test jran=4841) [place] [id number] POCT-GLUCOSE [id number] 11:16:00 Test Item Value Reference Range Comments POC-GLUCOSE METER (BEAKER) 273 mg/dL 70-110 TESTED AT [address] (test yaco=2948) [place] [id number] COMPREHENSIVE METABOLIC [id number] 06:44:00 Test Item Value Reference Range Comments TOTAL PROTEIN (BEAKER) 6.4 gm/dL 6.0-8.3 (test yhig=178) ALBUMIN (BEAKER) (test 2.9 g/dL 3.5-5.0 bcif=4926) ALKALINE PHOSPHATASE 109 U/L 40-150 (BEAKER) (test ezlc=151) BILIRUBIN TOTAL (BEAKER) < mg/dL 0.2-1.2 (test fjvc=732) SODIUM (BEAKER) (test 142 meq/L 136-145 fgvw=434) POTASSIUM (BEAKER) (test 4.1 meq/L 3.5-5.1 zvmz=381) CHLORIDE (BEAKER) (test 107 meq/L 98-107 wxww=860) CO2 (BEAKER) (test 26 meq/L 22-29 tniy=732) BLOOD UREA NITROGEN 7 mg/dL 7-21 (BEAKER) (test htco=560) CREATININE (BEAKER) (test 0.56 mg/dL 0.57-1.25 ekbw=645) GLUCOSE RANDOM (BEAKER) 103 mg/dL 70-105 (test tqmk=409) CALCIUM (BEAKER) (test 8.7 mg/dL 8.4-10.2 gdde=964) AST (SGOT) (BEAKER) (test 42 U/L 5-34 tyfi=620) ALT (SGPT) (BEAKER) (test 32 U/L 6-55 skhu=005) EGFR (BEAKER) (test 145 mL/min/1.73 sq ESTIMATED GFR IS NOT hvni=7521) m ACCURATE CREATININE CLEARANCE IN PREDICTING GLOMERULAR FILTRATION RATE. ESTIMATED GFR IS NOT APPLICABLE FOR DIALYSIS PATIENTS. [id number] 06:27:00 Test Item Value Reference Range Comments PARTIAL THROMBOPLASTIN TIME (BEAKER) (test 38.5 seconds 22.5-36.0 kcpe=517) PROTHROMBIN [id number] 06:26:00 Test Item Value Reference Range Comments PROTIME (BEAKER) (test lqcs=227) 16.3 seconds 11.7-14.7 INR (BEAKER) (test uayi=336) 1.3 <=5.9 RECOMMENDED COUMADIN/WARFARIN INR THERAPY RANGESSTANDARD DOSE: 2.0 - 3.0 Includes: PROPHYLAXIS forvenous thrombosis, systemic embolization; TREATMENT for venous thrombosis and/or pulmonary embolus.HIGH RISK: Target INR is 2.5-3.5 for patients with mechanical heart valves.CBC W/PLT COUNT & AUTO [id number] 06:25:00 Test Item Value Reference Range Comments WHITE BLOOD CELL COUNT (BEAKER) (test uojm=729) 7.1 K/ L 3.5-10.5 RED BLOOD CELL COUNT (BEAKER) (test fxbv=569) 2.90 M/ L 4.63-6.08 HEMOGLOBIN (BEAKER) (test umpk=978) 9.1 GM/DL 13.7-17.5 HEMATOCRIT (BEAKER) (test tsys=080) 28.9 % 40.1-51.0 MEAN CORPUSCULAR VOLUME (BEAKER) (test uuak=992) 99.7 fL 79.0-92.2 MEAN CORPUSCULAR HEMOGLOBIN (BEAKER) (test 31.4 pg 25.7-32.2 ilzp=070) MEAN CORPUSCULAR HEMOGLOBIN CONC (BEAKER) (test 31.5 GM/DL 32.3-36.5 vezr=244) RED CELL DISTRIBUTION WIDTH (BEAKER) (test 16.4 % 11.6-14.4 euhf=944) PLATELET COUNT (BEAKER) (test kxpx=469) 402 K/CU MM 150-450 MEAN PLATELET VOLUME (BEAKER) (test xwph=922) 9.2 fL 9.4-12.4 NUCLEATED RED BLOOD CELLS (BEAKER) (test 0 /100 WBC 0-0 ipzc=474) NEUTROPHILS RELATIVE PERCENT (BEAKER) (test 61 % ijkq=365) LYMPHOCYTES RELATIVE PERCENT (BEAKER) (test 21 % uavz=676) MONOCYTES RELATIVE PERCENT (BEAKER) (test 16 % ipge=950) EOSINOPHILS RELATIVE PERCENT (BEAKER) (test 2 % qbig=292) BASOPHILS RELATIVE PERCENT (BEAKER) (test 0 % qwyu=830) NEUTROPHILS ABSOLUTE COUNT (BEAKER) (test 4.30 K/ L 1.78-5.38 ciny=069) LYMPHOCYTES ABSOLUTE COUNT (BEAKER) (test 1.49 K/ L 1.32-3.57 ryjx=724) MONOCYTES ABSOLUTE COUNT (BEAKER) (test 1.10 K/ L 0.30-0.82 pyfl=379) EOSINOPHILS ABSOLUTE COUNT (BEAKER) (test 0.15 K/ L 0.04-0.54 mede=129) BASOPHILS ABSOLUTE COUNT (BEAKER) (test 0.02 K/ L 0.01-0.08 uitm=688) IMMATURE GRANULOCYTES-RELATIVE PERCENT (BEAKER) 0 % 0-1 (test bqfb=1683) POCT-GLUCOSE [id number] 06:22:00 Test Item Value Reference Range Comments POC-GLUCOSE METER (BEAKER) 131 mg/dL 70-110 TESTED AT [address] (test djms=8596) [facility] [place] [address] URINALYSIS W/ [id number] 20:35:00 Test Item Value Reference Range Comments COLOR (BEAKER) (test ehlg=583) Yellow CLARITY (BEAKER) (test mpxa=056) Clear SPECIFIC GRAVITY UA (BEAKER) (test 1.006 1.001-1.035 gjvy=004) PH UA (BEAKER) (test yllg=224) 6.5 5.0-8.0 PROTEIN UA (BEAKER) (test uhwy=446) Negative Negative GLUCOSE UA (BEAKER) (test skts=267) Negative Negative KETONES UA (BEAKER) (test kljk=332) Negative Negative BILIRUBIN UA (BEAKER) (test gzov=383) Negative Negative BLOOD UA (BEAKER) (test kfol=345) Negative Negative NITRITE UA (BEAKER) (test rqqd=700) Negative Negative LEUKOCYTE ESTERASE UA (BEAKER) (test Negative Negative aqsk=666) UROBILINOGEN UA (BEAKER) (test exer=355) 0.2 mg/dL 0.2-1.0 RBC UA (BEAKER) (test cksf=252) 1 /HPF WBC UA (BEAKER) (test wmtd=944) 0 /HPF SOURCE(BEAKER) (test zlvi=6321) Urine, Clean Catch POCT-GLUCOSE [id number] 20:21:00 Test Item Value Reference Range Comments POC-GLUCOSE METER (BEAKER) 132 mg/dL 70-110 TESTED AT [address] (test glih=9065) [place] [id number] POCT-GLUCOSE [id number] 16:17:00 Test Item Value Reference Range Comments POC-GLUCOSE METER (BEAKER) 101 mg/dL 70-110 TESTED AT [address] (test qyjy=6927) [place] [address] POCT-GLUCOSE [id number] 13:35:00 Test Item Value Reference Range Comments POC-GLUCOSE METER (BEAKER) 143 mg/dL 70-110 TESTED AT [address] (test eiko=0404) [facility] [place] [address] BASIC METABOLIC [id number] 06:31:00 Test Item Value Reference Range Comments SODIUM (BEAKER) (test 137 meq/L 136-145 axdq=931) POTASSIUM (BEAKER) (test 4.2 meq/L 3.5-5.1 npvt=235) CHLORIDE (BEAKER) (test 104 meq/L 98-107 yeto=800) CO2 (BEAKER) (test 26 meq/L 22-29 fpxl=139) BLOOD UREA NITROGEN 4 mg/dL 7-21 (BEAKER) (test etcu=454) CREATININE (BEAKER) (test 0.57 mg/dL 0.57-1.25 seed=575) GLUCOSE RANDOM (BEAKER) 97 mg/dL 70-105 (test zcqj=330) CALCIUM (BEAKER) (test 8.8 mg/dL 8.4-10.2 mrjz=605) EGFR (BEAKER) (test 142 mL/min/1.73 sq m ESTIMATED GFR IS NOT fbeg=4486) ACCURATE CREATININE CLEARANCE IN PREDICTING GLOMERULAR FILTRATION RATE. ESTIMATED GFR IS NOT APPLICABLE FOR DIALYSIS PATIENTS. BASIC METABOLIC [id number] 05:41:00 Test Item Value Reference Range Comments SODIUM (BEAKER) (test 141 meq/L 136-145 stim=414) POTASSIUM (BEAKER) (test 3.9 meq/L 3.5-5.1 enxq=910) CHLORIDE (BEAKER) (test 107 meq/L 98-107 mbkp=666) CO2 (BEAKER) (test 24 meq/L 22-29 phmh=013) BLOOD UREA NITROGEN 4 mg/dL 7-21 (BEAKER) (test lsep=579) CREATININE (BEAKER) (test 0.59 mg/dL 0.57-1.25 quft=544) GLUCOSE RANDOM (BEAKER) 100 mg/dL 70-105 (test gaut=513) CALCIUM (BEAKER) (test 8.7 mg/dL 8.4-10.2 ioiw=686) EGFR (BEAKER) (test 137 mL/min/1.73 sq m ESTIMATED GFR IS NOT khyp=0350) ACCURATE CREATININE CLEARANCE IN PREDICTING GLOMERULAR FILTRATION RATE. ESTIMATED GFR IS NOT APPLICABLE FOR DIALYSIS PATIENTS. CBC (HEMOGRAM ONLY)2016-12-13 05:18:00 Test Item Value Reference Range Comments WHITE BLOOD CELL COUNT (BEAKER) (test wtmk=970) 8.5 K/ L 3.5-10.5 RED BLOOD CELL COUNT (BEAKER) (test mfkq=981) 2.81 M/ L 4.63-6.08 HEMOGLOBIN (BEAKER) (test rwig=483) 9.0 GM/DL 13.7-17.5 HEMATOCRIT (BEAKER) (test hibl=189) 27.9 % 40.1-51.0 MEAN CORPUSCULAR VOLUME (BEAKER) (test djiv=693) 99.3 fL 79.0-92.2 MEAN CORPUSCULAR HEMOGLOBIN (BEAKER) (test 32.0 pg 25.7-32.2 lfyj=081) MEAN CORPUSCULAR HEMOGLOBIN CONC (BEAKER) (test 32.3 GM/DL 32.3-36.5 tent=464) RED CELL DISTRIBUTION WIDTH (BEAKER) (test 17.0 % 11.6-14.4 ednc=822) PLATELET COUNT (BEAKER) (test nmyz=986) 473 K/CU MM 150-450 MEAN PLATELET VOLUME (BEAKER) (test knmc=341) 9.3 fL 9.4-12.4 NUCLEATED RED BLOOD CELLS (BEAKER) (test 0 /100 WBC 0-0 dshu=213) VITAMIN [id number] 06:04:00 Test Item Value Reference Range Comments VITAMIN B12 (BEAKER) (test nyqj=327) 619 pg/mL 213-816 [id number] 06:04:00 Test Item Value Reference Range Comments FERRITIN (BEAKER) (test bmis=060) 335 ng/mL 5-275 Effective 03/02/2014: Reference Range ChangeNew: Male 5-275 Previous: Male 22-322 Female 5-275 Female 10-291FOLATE, [id number] 06: 04:00 Test Item Value Reference Range Comments FOLATE (BEAKER) (test dkpl=587) 4.9 ng/mL >=7.0 Effective 03/02/2014: Folate Reference Range ChangeNew: >=7.0 Previous: & gt;=5.4BASIC METABOLIC [id number] 05:47:00 Test Item Value Reference Range Comments SODIUM (BEAKER) (test 135 meq/L 136-145 eilx=396) POTASSIUM (BEAKER) (test 4.1 meq/L 3.5-5.1 vdqb=446) CHLORIDE (BEAKER) (test 103 meq/L 98-107 ndja=607) CO2 (BEAKER) (test 24 meq/L 22-29 fsas=402) BLOOD UREA NITROGEN 5 mg/dL 7-21 (BEAKER) (test iivc=239) CREATININE (BEAKER) (test 0.56 mg/dL 0.57-1.25 yxyp=224) GLUCOSE RANDOM (BEAKER) 98 mg/dL 70-105 (test wcpm=753) CALCIUM (BEAKER) (test 8.5 mg/dL 8.4-10.2 savr=799) EGFR (BEAKER) (test 145 mL/min/1.73 sq m ESTIMATED GFR IS NOT gzps=1549) ACCURATE CREATININE CLEARANCE IN PREDICTING GLOMERULAR FILTRATION RATE. ESTIMATED GFR IS NOT APPLICABLE FOR DIALYSIS PATIENTS. IRON, TIBC, % SAT. (WITHOUT FERRITIN)2016-12-12 05:29:00 Test Item Value Reference Range Comments IRON (BEAKER) (test iaoc=303) 25 ug/dL 40-160 TOTAL IRON BINDING CAPACITY (BEAKER) (test 238 ug/dL 250-450 wekc=639) IRON % SATURATION (2) (BEAKER) (test ltuk=6355) 11 % 20-55 CBC (HEMOGRAM ONLY)2016-12-12 05:09:00 Test Item Value Reference Range Comments WHITE BLOOD CELL COUNT (BEAKER) (test kaao=416) 8.6 K/ L 3.5-10.5 RED BLOOD CELL COUNT (BEAKER) (test toot=817) 2.74 M/ L 4.63-6.08 HEMOGLOBIN (BEAKER) (test lmyj=507) 8.9 GM/DL 13.7-17.5 HEMATOCRIT (BEAKER) (test wdog=628) 27.3 % 40.1-51.0 MEAN CORPUSCULAR VOLUME (BEAKER) (test fuhz=108) 99.6 fL 79.0-92.2 MEAN CORPUSCULAR HEMOGLOBIN (BEAKER) (test 32.5 pg 25.7-32.2 mqzv=863) MEAN CORPUSCULAR HEMOGLOBIN CONC (BEAKER) (test 32.6 GM/DL 32.3-36.5 qbub=410) RED CELL DISTRIBUTION WIDTH (BEAKER) (test 17.2 % 11.6-14.4 wbym=388) PLATELET COUNT (BEAKER) (test lhmy=805) 400 K/CU MM 150-450 MEAN PLATELET VOLUME (BEAKER) (test nztt=817) 9.2 fL 9.4-12.4 NUCLEATED RED BLOOD CELLS (BEAKER) (test 0 /100 WBC 0-0 nioq=914) BASIC METABOLIC [id number] 05:53:00 Test Item Value Reference Range Comments SODIUM (BEAKER) (test 138 meq/L 136-145 pjey=525) POTASSIUM (BEAKER) (test 4.0 meq/L 3.5-5.1 Specimen slightly nkfk=321) hemolyzed CHLORIDE (BEAKER) (test 105 meq/L 98-107 slvr=358) CO2 (BEAKER) (test 24 meq/L 22-29 cyjn=183) BLOOD UREA NITROGEN 4 mg/dL 7-21 (BEAKER) (test cssz=681) CREATININE (BEAKER) (test 0.56 mg/dL 0.57-1.25 Specimen slightly fpzv=659) hemolyzed GLUCOSE RANDOM (BEAKER) 97 mg/dL 70-105 (test ylmc=216) CALCIUM (BEAKER) (test 8.4 mg/dL 8.4-10.2 duzp=316) EGFR (BEAKER) (test 145 mL/min/1.73 sq m ESTIMATED GFR IS NOT oujj=5850) ACCURATE CREATININE CLEARANCE IN PREDICTING GLOMERULAR FILTRATION RATE. ESTIMATED GFR IS NOT APPLICABLE FOR DIALYSIS PATIENTS. CREATINE KINASE (CK)2016-12-11 05:53:00 Test Item Value Reference Range Comments CREATINE KINASE TOTAL (BEAKER) (test urfn=730) 29 U/L 29-200 CBC (HEMOGRAM ONLY)2016-12-11 05:34:00 Test Item Value Reference Range Comments WHITE BLOOD CELL COUNT (BEAKER) (test asau=083) 8.0 K/ L 3.5-10.5 RED BLOOD CELL COUNT (BEAKER) (test rzyj=093) 2.70 M/ L 4.63-6.08 HEMOGLOBIN (BEAKER) (test lypq=004) 8.6 GM/DL 13.7-17.5 HEMATOCRIT (BEAKER) (test zzzj=565) 27.0 % 40.1-51.0 MEAN CORPUSCULAR VOLUME (BEAKER) (test prkg=338) 100.0 fL 79.0-92.2 MEAN CORPUSCULAR HEMOGLOBIN (BEAKER) (test 31.9 pg 25.7-32.2 wuln=034) MEAN CORPUSCULAR HEMOGLOBIN CONC (BEAKER) (test 31.9 GM/DL 32.3-36.5 biue=751) RED CELL DISTRIBUTION WIDTH (BEAKER) (test 17.2 % 11.6-14.4 alny=311) PLATELET COUNT (BEAKER) (test qmmf=792) 406 K/CU MM 150-450 MEAN PLATELET VOLUME (BEAKER) (test jnpm=106) 9.4 fL 9.4-12.4 NUCLEATED RED BLOOD CELLS (BEAKER) (test 0 /100 WBC 0-0 igqc=770) [id number] 22:53:00 Test Item Value Reference Range Comments ACTIVATED CLOTTING TIME 153 sec TESTED AT [address] (BEAKER) (test xhpy=237) [place] [address] [id number] 22:35:00 Test Item Value Reference Range Comments ACTIVATED CLOTTING TIME 202 sec TESTED AT [address] (BEAKER) (test lskb=867) [place] [address] [id number] 22:04:00 Test Item Value Reference Range Comments PARTIAL THROMBOPLASTIN TIME (BEAKER) (test 45.2 seconds 22.5-36.0 trty=559) Prior to initiating heparinCBC (HEMOGRAM ONLY)2016-12-10 21:56:00 Test Item Value Reference Range Comments WHITE BLOOD CELL COUNT (BEAKER) (test iiad=835) 9.5 K/ L 3.5-10.5 RED BLOOD CELL COUNT (BEAKER) (test zwud=189) 2.79 M/ L 4.63-6.08 HEMOGLOBIN (BEAKER) (test ebqa=706) 9.0 GM/DL 13.7-17.5 HEMATOCRIT (BEAKER) (test trkf=585) 27.6 % 40.1-51.0 MEAN CORPUSCULAR VOLUME (BEAKER) (test pyre=964) 98.9 fL 79.0-92.2 MEAN CORPUSCULAR HEMOGLOBIN (BEAKER) (test 32.3 pg 25.7-32.2 zufd=933) MEAN CORPUSCULAR HEMOGLOBIN CONC (BEAKER) (test 32.6 GM/DL 32.3-36.5 jdqz=693) RED CELL DISTRIBUTION WIDTH (BEAKER) (test 17.3 % 11.6-14.4 toay=272) PLATELET COUNT (BEAKER) (test lhjd=467) 429 K/CU MM 150-450 MEAN PLATELET VOLUME (BEAKER) (test vyca=000) 9.8 fL 9.4-12.4 NUCLEATED RED BLOOD CELLS (BEAKER) (test 0 /100 WBC 0-0 bohk=971) BASIC METABOLIC [id number] 08:43:00 Test Item Value Reference Range Comments SODIUM (BEAKER) (test 139 meq/L 136-145 togh=209) POTASSIUM (BEAKER) (test 4.0 meq/L 3.5-5.1 jagm=367) CHLORIDE (BEAKER) (test 104 meq/L 98-107 yzyw=291) CO2 (BEAKER) (test 24 meq/L 22-29 ocyi=393) BLOOD UREA NITROGEN 4 mg/dL 7-21 (BEAKER) (test zyjj=727) CREATININE (BEAKER) (test 0.58 mg/dL 0.57-1.25 ierp=627) GLUCOSE RANDOM (BEAKER) 95 mg/dL 70-105 (test qcla=403) CALCIUM (BEAKER) (test 8.7 mg/dL 8.4-10.2 qggc=901) EGFR (BEAKER) (test 139 mL/min/1.73 sq m ESTIMATED GFR IS NOT yvhr=8506) ACCURATE CREATININE CLEARANCE IN PREDICTING GLOMERULAR FILTRATION RATE. ESTIMATED GFR IS NOT APPLICABLE FOR DIALYSIS PATIENTS. CBC (HEMOGRAM ONLY)2016-12-10 08:03:00 Test Item Value Reference Range Comments WHITE BLOOD CELL COUNT (BEAKER) (test eszo=844) 8.7 K/ L 3.5-10.5 RED BLOOD CELL COUNT (BEAKER) (test xgij=776) 2.80 M/ L 4.63-6.08 HEMOGLOBIN (BEAKER) (test tunm=282) 9.2 GM/DL 13.7-17.5 HEMATOCRIT (BEAKER) (test zmiu=776) 27.7 % 40.1-51.0 MEAN CORPUSCULAR VOLUME (BEAKER) (test eqev=419) 98.9 fL 79.0-92.2 MEAN CORPUSCULAR HEMOGLOBIN (BEAKER) (test 32.9 pg 25.7-32.2 ttve=606) MEAN CORPUSCULAR HEMOGLOBIN CONC (BEAKER) (test 33.2 GM/DL 32.3-36.5 iqar=417) RED CELL DISTRIBUTION WIDTH (BEAKER) (test 17.2 % 11.6-14.4 erhv=891) PLATELET COUNT (BEAKER) (test iext=694) 509 K/CU MM 150-450 MEAN PLATELET VOLUME (BEAKER) (test voyp=845) 9.3 fL 9.4-12.4 NUCLEATED RED BLOOD CELLS (BEAKER) (test 0 /100 WBC 0-0 cejk=980) BASIC METABOLIC [id number] 06:44:00 Test Item Value Reference Range Comments SODIUM (BEAKER) (test 137 meq/L 136-145 kwls=173) POTASSIUM (BEAKER) (test 4.6 meq/L 3.5-5.1 Specimen slightly dopk=420) hemolyzed CHLORIDE (BEAKER) (test 106 meq/L 98-107 rwzl=439) CO2 (BEAKER) (test 18 meq/L 22-29 uged=349) BLOOD UREA NITROGEN 5 mg/dL 7-21 (BEAKER) (test upkr=619) CREATININE (BEAKER) (test 0.60 mg/dL 0.57-1.25 Specimen slightly weoi=059) hemolyzed GLUCOSE RANDOM (BEAKER) 86 mg/dL 70-105 (test dtbz=565) CALCIUM (BEAKER) (test 8.6 mg/dL 8.4-10.2 wvkt=566) EGFR (BEAKER) (test 134 mL/min/1.73 sq m ESTIMATED GFR IS NOT ckpk=4586) ACCURATE CREATININE CLEARANCE IN PREDICTING GLOMERULAR FILTRATION RATE. ESTIMATED GFR IS NOT APPLICABLE FOR DIALYSIS PATIENTS. CBC W/PLT COUNT & AUTO [id number] 21:33:00 Test Item Value Reference Range Comments WHITE BLOOD CELL COUNT (BEAKER) (test edeq=016) 8.3 K/ L 3.5-10.5 RED BLOOD CELL COUNT (BEAKER) (test fgjm=341) 3.00 M/ L 4.63-6.08 HEMOGLOBIN (BEAKER) (test vcst=216) 9.6 GM/DL 13.7-17.5 HEMATOCRIT (BEAKER) (test dvwz=656) 29.5 % 40.1-51.0 MEAN CORPUSCULAR VOLUME (BEAKER) (test frmw=764) 98.3 fL 79.0-92.2 MEAN CORPUSCULAR HEMOGLOBIN (BEAKER) (test 32.0 pg 25.7-32.2 kvjg=802) MEAN CORPUSCULAR HEMOGLOBIN CONC (BEAKER) (test 32.5 GM/DL 32.3-36.5 uyes=131) RED CELL DISTRIBUTION WIDTH (BEAKER) (test 17.3 % 11.6-14.4 vvjl=044) PLATELET COUNT (BEAKER) (test dkzz=593) 434 K/CU MM 150-450 MEAN PLATELET VOLUME (BEAKER) (test mxdc=405) 9.4 fL 9.4-12.4 NUCLEATED RED BLOOD CELLS (BEAKER) (test 0 /100 WBC 0-0 nvqb=571) NEUTROPHILS RELATIVE PERCENT (BEAKER) (test 54 % pivq=413) LYMPHOCYTES RELATIVE PERCENT (BEAKER) (test 27 % wwpg=193) MONOCYTES RELATIVE PERCENT (BEAKER) (test 17 % ugzu=077) EOSINOPHILS RELATIVE PERCENT (BEAKER) (test 2 % icws=431) BASOPHILS RELATIVE PERCENT (BEAKER) (test 0 % vegd=499) NEUTROPHILS ABSOLUTE COUNT (BEAKER) (test 4.46 K/ L 1.78-5.38 kmrj=798) LYMPHOCYTES ABSOLUTE COUNT (BEAKER) (test 2.24 K/ L 1.32-3.57 yilb=769) MONOCYTES ABSOLUTE COUNT (BEAKER) (test 1.38 K/ L 0.30-0.82 ljda=910) EOSINOPHILS ABSOLUTE COUNT (BEAKER) (test 0.17 K/ L 0.04-0.54 lsph=342) BASOPHILS ABSOLUTE COUNT (BEAKER) (test 0.02 K/ L 0.01-0.08 fdgi=793) IMMATURE GRANULOCYTES-RELATIVE PERCENT (BEAKER) 1 % 0-1 (test rzns=5868) [id number] 07:21:00 Test Item Value Reference Range Comments PHOSPHORUS (BEAKER) (test xygy=594) 3.6 mg/dL 2.3-4.7 [id number] 07:21:00 Test Item Value Reference Range Comments MAGNESIUM (BEAKER) (test upiw=196) 1.9 mg/dL 1.6-2.6 COMPREHENSIVE METABOLIC [id number] 07:21:00 Test Item Value Reference Range Comments TOTAL PROTEIN (BEAKER) 6.2 gm/dL 6.0-8.3 (test whmp=182) ALBUMIN (BEAKER) (test 3.0 g/dL 3.5-5.0 tltr=4000) ALKALINE PHOSPHATASE 95 U/L 40-150 (BEAKER) (test kccw=510) BILIRUBIN TOTAL (BEAKER) 0.3 mg/dL 0.2-1.2 (test ieuq=239) SODIUM (BEAKER) (test 137 meq/L 136-145 qnfq=896) POTASSIUM (BEAKER) (test 3.9 meq/L 3.5-5.1 iavt=363) CHLORIDE (BEAKER) (test 105 meq/L 98-107 gvse=295) CO2 (BEAKER) (test 23 meq/L 22-29 gmbm=797) BLOOD UREA NITROGEN 6 mg/dL 7-21 (BEAKER) (test yszx=648) CREATININE (BEAKER) (test 0.57 mg/dL 0.57-1.25 docb=806) GLUCOSE RANDOM (BEAKER) 89 mg/dL 70-105 (test kzdh=860) CALCIUM (BEAKER) (test 8.3 mg/dL 8.4-10.2 droi=321) AST (SGOT) (BEAKER) (test 25 U/L 5-34 jrou=463) ALT (SGPT) (BEAKER) (test 14 U/L 6-55 akaf=159) EGFR (BEAKER) (test 142 mL/min/1.73 sq ESTIMATED GFR IS NOT hevb=5231) m ACCURATE CREATININE CLEARANCE IN PREDICTING GLOMERULAR FILTRATION RATE. ESTIMATED GFR IS NOT APPLICABLE FOR DIALYSIS PATIENTS. CBC (HEMOGRAM ONLY)2016-12-08 06:35:00 Test Item Value Reference Range Comments WHITE BLOOD CELL COUNT (BEAKER) (test judi=795) 7.9 K/ L 3.5-10.5 RED BLOOD CELL COUNT (BEAKER) (test uqro=115) 2.92 M/ L 4.63-6.08 HEMOGLOBIN (BEAKER) (test dcjp=766) 9.2 GM/DL 13.7-17.5 HEMATOCRIT (BEAKER) (test vicg=013) 28.4 % 40.1-51.0 MEAN CORPUSCULAR VOLUME (BEAKER) (test vtpb=052) 97.3 fL 79.0-92.2 MEAN CORPUSCULAR HEMOGLOBIN (BEAKER) (test 31.5 pg 25.7-32.2 wiux=036) MEAN CORPUSCULAR HEMOGLOBIN CONC (BEAKER) (test 32.4 GM/DL 32.3-36.5 vees=158) RED CELL DISTRIBUTION WIDTH (BEAKER) (test 17.0 % 11.6-14.4 zjxz=057) PLATELET COUNT (BEAKER) (test yvhg=890) 415 K/CU MM 150-450 MEAN PLATELET VOLUME (BEAKER) (test whgu=112) 9.3 fL 9.4-12.4 NUCLEATED RED BLOOD CELLS (BEAKER) (test 0 /100 WBC 0-0 bdzv=795) CBC (HEMOGRAM ONLY)2016-12-07 06:08:00 Test Item Value Reference Range Comments WHITE BLOOD CELL COUNT (BEAKER) (test umei=934) 7.7 K/ L 3.5-10.5 RED BLOOD CELL COUNT (BEAKER) (test yceu=821) 2.85 M/ L 4.63-6.08 HEMOGLOBIN (BEAKER) (test pvmc=076) 9.0 GM/DL 13.7-17.5 HEMATOCRIT (BEAKER) (test kthj=717) 27.8 % 40.1-51.0 MEAN CORPUSCULAR VOLUME (BEAKER) (test gznu=841) 97.5 fL 79.0-92.2 MEAN CORPUSCULAR HEMOGLOBIN (BEAKER) (test 31.6 pg 25.7-32.2 jknq=638) MEAN CORPUSCULAR HEMOGLOBIN CONC (BEAKER) (test 32.4 GM/DL 32.3-36.5 jvhl=716) RED CELL DISTRIBUTION WIDTH (BEAKER) (test 16.5 % 11.6-14.4 tbiv=212) PLATELET COUNT (BEAKER) (test tivs=094) 399 K/CU MM 150-450 MEAN PLATELET VOLUME (BEAKER) (test xtwm=825) 9.5 fL 9.4-12.4 NUCLEATED RED BLOOD CELLS (BEAKER) (test 0 /100 WBC 0-0 dcxl=428) PHENYTOIN LEVEL, TOTAL AND [id number] 01:14:00 Test Item Value Reference Range Comments PHENYTOIN (DILANTIN) (BEAKER) (test zjqk=731) 22.9 ug/mL 10.0-20.0 PHENYTOIN FREE (BEAKER) (test qcgu=004) 3.51 mcg/ml 1.00-2.00 VALPROIC ACID LEVEL, [id number] 20:49:00 Test Item Value Reference Range Comments VALPROIC ACID TOTAL (BEAKER) (test jsao=195) 33 ug/mL 50-100 Therapeutic range for some clinical conditions may be >100 ug/mLPOCT-GLUCOSE [id number] 17:10:00 Test Item Value Reference Range Comments POC-GLUCOSE METER (BEAKER) 108 mg/dL 70-[address] [facility] [address] [facility] (test arkh=0999) [facility] [place] [address] PHENYTOIN LEVEL, [id number] 12:29:00 Test Item Value Reference Range Comments PHENYTOIN (DILANTIN) (BEAKER) (test aidz=539) 16.3 ug/mL 10.0-20.0 CREATINE KINASE (CK), TOTAL AND [id number] 12:26:00 Test Item Value Reference Range Comments CREATINE KINASE TOTAL (BEAKER) (test shlg=525) 47 U/L 29-200 CREATINE KINASE-MB (BEAKER) (test xlew=440) 1.1 ng/mL 0.0-6.6 CREATINE KINASE-MB INDEX (BEAKER) (test eqwb=314) 2.3 % Effective 03/02/2014: CK-MB Reference Range ChangeNew: 0.0-6.6 Previous: 0.0- 4.9CK-MB Reference Range:<6.7 Normal6.7-10.0 Borderline>10.0 AbnormalTROPONIN [id number] 12:26:00 Test Item Value Reference Range Comments TROPONIN I (BEAKER) (test oqmr=978) 0.11 ng/mL 0.00-0.03 Effective 03/02/2014: Reference Range [...] renalfailure, acidosis, acute neurological disease, and persistent tachyarrhythmia.[id number] 12:17: 00 Test Item Value Reference Range Comments MAGNESIUM (BEAKER) (test sisn=921) 2.0 mg/dL 1.6-2.6 COMPREHENSIVE METABOLIC [id number] 12:17:00 Test Item Value Reference Range Comments TOTAL PROTEIN (BEAKER) 6.2 gm/dL 6.0-8.3 (test utqe=606) ALBUMIN (BEAKER) (test 3.0 g/dL 3.5-5.0 nhll=8272) ALKALINE PHOSPHATASE 101 U/L 40-150 (BEAKER) (test qfxm=571) BILIRUBIN TOTAL (BEAKER) 0.3 mg/dL 0.2-1.2 (test znog=936) SODIUM (BEAKER) (test 140 meq/L 136-145 yvlz=326) POTASSIUM (BEAKER) (test 4.6 meq/L 3.5-5.1 hjlm=480) CHLORIDE (BEAKER) (test 107 meq/L 98-107 pgej=525) CO2 (BEAKER) (test 24 meq/L 22-29 nssl=656) BLOOD UREA NITROGEN 5 mg/dL 7-21 (BEAKER) (test gkby=612) CREATININE (BEAKER) (test 0.62 mg/dL 0.57-1.25 pmef=143) GLUCOSE RANDOM (BEAKER) 111 mg/dL 70-105 (test aule=934) CALCIUM (BEAKER) (test 8.6 mg/dL 8.4-10.2 zdiq=947) AST (SGOT) (BEAKER) (test 23 U/L 5-34 tool=662) ALT (SGPT) (BEAKER) (test 15 U/L 6-55 tltp=258) EGFR (BEAKER) (test 129 mL/min/1.73 sq ESTIMATED GFR IS NOT lpvd=9396) m ACCURATE CREATININE CLEARANCE IN PREDICTING GLOMERULAR FILTRATION RATE. ESTIMATED GFR IS NOT APPLICABLE FOR DIALYSIS PATIENTS. CBC W/PLT COUNT & AUTO [id number] 11:55:00 Test Item Value Reference Range Comments WHITE BLOOD CELL COUNT (BEAKER) (test lrpk=524) 7.5 K/ L 3.5-10.5 RED BLOOD CELL COUNT (BEAKER) (test qull=251) 3.01 M/ L 4.63-6.08 HEMOGLOBIN (BEAKER) (test jqgm=041) 9.5 GM/DL 13.7-17.5 HEMATOCRIT (BEAKER) (test ibhk=178) 29.3 % 40.1-51.0 MEAN CORPUSCULAR VOLUME (BEAKER) (test gqbe=362) 97.3 fL 79.0-92.2 MEAN CORPUSCULAR HEMOGLOBIN (BEAKER) (test 31.6 pg 25.7-32.2 phqq=755) MEAN CORPUSCULAR HEMOGLOBIN CONC (BEAKER) (test 32.4 GM/DL 32.3-36.5 tksd=283) RED CELL DISTRIBUTION WIDTH (BEAKER) (test 16.4 % 11.6-14.4 nqwt=012) PLATELET COUNT (BEAKER) (test shoc=903) 396 K/CU MM 150-450 MEAN PLATELET VOLUME (BEAKER) (test qsms=118) 9.6 fL 9.4-12.4 NUCLEATED RED BLOOD CELLS (BEAKER) (test 0 /100 WBC 0-0 pfde=744) NEUTROPHILS RELATIVE PERCENT (BEAKER) (test 65 % cgot=595) LYMPHOCYTES RELATIVE PERCENT (BEAKER) (test 19 % flse=463) MONOCYTES RELATIVE PERCENT (BEAKER) (test 13 % ejup=279) EOSINOPHILS RELATIVE PERCENT (BEAKER) (test 2 % qloi=761) BASOPHILS RELATIVE PERCENT (BEAKER) (test 0 % gkdi=810) NEUTROPHILS ABSOLUTE COUNT (BEAKER) (test 4.91 K/ L 1.78-5.38 exvd=379) LYMPHOCYTES ABSOLUTE COUNT (BEAKER) (test 1.43 K/ L 1.32-3.57 chek=457) MONOCYTES ABSOLUTE COUNT (BEAKER) (test 0.96 K/ L 0.30-0.82 hkcy=151) EOSINOPHILS ABSOLUTE COUNT (BEAKER) (test 0.11 K/ L 0.04-0.54 szka=060) BASOPHILS ABSOLUTE COUNT (BEAKER) (test 0.02 K/ L 0.01-0.08 ndgz=365) IMMATURE GRANULOCYTES-RELATIVE PERCENT (BEAKER) 1 % 0-1 (test eahm=2131) URINE [id number] 11:55:00 Test Item Value Reference Range Comments CULTURE (BEAKER) (test prlq=9354) No growth BLOOD GAS, [id number] 10:28:00 Test Item Value Reference Range Comments PH ARTERIAL (BEAKER) (test eicu=891) 7.51 7.35-7.45 PCO2 ARTERIAL (BEAKER) (test kjrk=227) 32 mmHg 35-45 PO2 ARTERIAL (BEAKER) (test oysv=056) 118 mmHg 80-90 O2 SATURATION ARTERIAL (BEAKER) (test zycs=976) 98.7 % 96.0-97.0 HCO3 ARTERIAL (BEAKER) (test gjsi=400) 25 mmol/L 21-29 BASE EXCESS ARTERIAL (BEAKER) (test cbdf=531) 2.1 mmol/L -2.0-3.0 PATIENT TEMPERATURE (BEAKER) (test hxel=7999) 36.6 C FIO2 (BEAKER) (test lcsv=0619) 32.0 % POCT-GLUCOSE [id number] 09:53:00 Test Item Value Reference Range Comments POC-GLUCOSE METER (BEAKER) 184 mg/dL 70-110 TESTED AT [address] (test gunu=2769) [facility] [place] [address] TROPONIN [id number] 22:44:00 Test Item Value Reference Range Comments TROPONIN I (BEAKER) (test rtug=570) 0.14 ng/mL 0.00-0.03 Effective 03/02/2014: Reference Range [...] acidosis, acute neurological disease, and persistent tachyarrhythmia.TROPONIN [id number] 15:17: 00 Test Item Value Reference Range Comments TROPONIN I (BEAKER) (test vzcw=587) 0.14 ng/mL 0.00-0.03 Effective 03/02/2014: Reference Range [...] and persistent tachyarrhythmia.CBC W/PLT COUNT & AUTO [id number] 14:44:00 Test Item Value Reference Range Comments WHITE BLOOD CELL COUNT (BEAKER) (test svvk=264) 7.7 K/ L 3.5-10.5 RED BLOOD CELL COUNT (BEAKER) (test oxvw=429) 2.98 M/ L 4.63-6.08 HEMOGLOBIN (BEAKER) (test gjfk=527) 9.3 GM/DL 13.7-17.5 HEMATOCRIT (BEAKER) (test bmrc=788) 28.7 % 40.1-51.0 MEAN CORPUSCULAR VOLUME (BEAKER) (test bpzh=679) 96.3 fL 79.0-92.2 MEAN CORPUSCULAR HEMOGLOBIN (BEAKER) (test 31.2 pg 25.7-32.2 zwie=696) MEAN CORPUSCULAR HEMOGLOBIN CONC (BEAKER) (test 32.4 GM/DL 32.3-36.5 hkea=740) RED CELL DISTRIBUTION WIDTH (BEAKER) (test 15.7 % 11.6-14.4 poaz=790) PLATELET COUNT (BEAKER) (test dvyk=285) 356 K/CU MM 150-450 MEAN PLATELET VOLUME (BEAKER) (test abvo=004) 10.1 fL 9.4-12.4 NUCLEATED RED BLOOD CELLS (BEAKER) (test 1 /100 WBC 0-0 inlr=396) NEUTROPHILS RELATIVE PERCENT (BEAKER) (test 58 % wfvq=914) LYMPHOCYTES RELATIVE PERCENT (BEAKER) (test 24 % elnb=546) MONOCYTES RELATIVE PERCENT (BEAKER) (test 16 % qckx=713) EOSINOPHILS RELATIVE PERCENT (BEAKER) (test 1 % rxxl=340) BASOPHILS RELATIVE PERCENT (BEAKER) (test 0 % bnjz=512) NEUTROPHILS ABSOLUTE COUNT (BEAKER) (test 4.43 K/ L 1.78-5.38 dyaw=583) LYMPHOCYTES ABSOLUTE COUNT (BEAKER) (test 1.85 K/ L 1.32-3.57 iptr=774) MONOCYTES ABSOLUTE COUNT (BEAKER) (test 1.22 K/ L 0.30-0.82 vqes=244) EOSINOPHILS ABSOLUTE COUNT (BEAKER) (test 0.11 K/ L 0.04-0.54 tsud=898) BASOPHILS ABSOLUTE COUNT (BEAKER) (test 0.02 K/ L 0.01-0.08 djyv=931) IMMATURE GRANULOCYTES-RELATIVE PERCENT (BEAKER) 1 % 0-1 (test jbcs=5618) (MANUAL DIFFERENTIAL)2016-12-05 14:44:00 Test Item Value Reference Range Comments TOTAL COUNTED (BEAKER) (test hash=2144) WBC MORPHOLOGY (BEAKER) (test batk=066) Normal PLT MORPHOLOGY (BEAKER) (test soyz=698) Normal RBC MORPHOLOGY (BEAKER) (test fotf=099) Normal [id number] 07:06:00 Test Item Value Reference Range Comments PHOSPHORUS (BEAKER) (test gona=616) 2.5 mg/dL 2.3-4.7 [id number] 07:06:00 Test Item Value Reference Range Comments MAGNESIUM (BEAKER) (test fwhw=216) 2.0 mg/dL 1.6-2.6 COMPREHENSIVE METABOLIC [id number] 07:06:00 Test Item Value Reference Range Comments TOTAL PROTEIN (BEAKER) 6.3 gm/dL 6.0-8.3 (test ipgc=979) ALBUMIN (BEAKER) (test 3.1 g/dL 3.5-5.0 hfnf=6291) ALKALINE PHOSPHATASE 108 U/L 40-150 (BEAKER) (test ulbc=333) BILIRUBIN TOTAL (BEAKER) 0.3 mg/dL 0.2-1.2 (test dklv=102) SODIUM (BEAKER) (test 139 meq/L 136-145 qfyv=788) POTASSIUM (BEAKER) (test 4.7 meq/L 3.5-5.1 burb=323) CHLORIDE (BEAKER) (test 107 meq/L 98-107 mfnt=967) CO2 (BEAKER) (test 25 meq/L 22-29 tzft=440) BLOOD UREA NITROGEN 6 mg/dL 7-21 (BEAKER) (test qadf=466) CREATININE (BEAKER) (test 0.57 mg/dL 0.57-1.25 bahu=834) GLUCOSE RANDOM (BEAKER) 98 mg/dL 70-105 (test vlnt=393) CALCIUM (BEAKER) (test 8.8 mg/dL 8.4-10.2 hnck=801) AST (SGOT) (BEAKER) (test 25 U/L 5-34 awtf=052) ALT (SGPT) (BEAKER) (test 19 U/L 6-55 rrgm=607) EGFR (BEAKER) (test 142 mL/min/1.73 sq ESTIMATED GFR IS NOT bivg=9832) m ACCURATE CREATININE CLEARANCE IN PREDICTING GLOMERULAR FILTRATION RATE. ESTIMATED GFR IS NOT APPLICABLE FOR DIALYSIS PATIENTS. PROTHROMBIN TIME/[id number] 06:40:00 Test Item Value Reference Range Comments PROTIME (BEAKER) (test rzob=703) 12.5 seconds 11.7-14.7 INR (BEAKER) (test zoen=237) 1.0 <=5.9 RECOMMENDED COUMADIN/WARFARIN INR THERAPY RANGESSTANDARD DOSE: 2.0 - 3.0 Includes: PROPHYLAXIS forvenous thrombosis, systemic embolization; TREATMENT for venous thrombosis and/or pulmonary embolus.HIGH RISK: Target INR is 2.5-3.5 for patients with mechanical heart valves.URINALYSIS W/ [id number] 06 :18:00 Test Item Value Reference Range Comments COLOR (BEAKER) (test dshx=639) Yellow CLARITY (BEAKER) (test zccd=449) Clear SPECIFIC GRAVITY UA (BEAKER) (test itay=318) 1.010 1.001-1.035 PH UA (BEAKER) (test uuqq=100) 8.0 5.0-8.0 PROTEIN UA (BEAKER) (test zrfr=187) Negative Negative GLUCOSE UA (BEAKER) (test aftk=650) Negative Negative KETONES UA (BEAKER) (test hgpp=624) 10 mg/dL Negative BILIRUBIN UA (BEAKER) (test ooez=712) Negative Negative BLOOD UA (BEAKER) (test gcgn=365) Negative Negative NITRITE UA (BEAKER) (test erpg=250) Negative Negative LEUKOCYTE ESTERASE UA (BEAKER) (test rsjg=214) Negative Negative UROBILINOGEN UA (BEAKER) (test itls=397) 3.0 mg/dL 0.2-1.0 RBC UA (BEAKER) (test pngp=889) 0 /HPF WBC UA (BEAKER) (test ffzl=113) < /HPF SQUAMOUS EPITHELIAL (BEAKER) (test hkhs=377) < /HPF SOURCE(BEAKER) (test jxri=2589) Urine, Voided COMPREHENSIVE METABOLIC [id number] 05:47:00 Test Item Value Reference Range Comments TOTAL PROTEIN (BEAKER) 5.5 gm/dL 6.0-8.3 (test mitg=484) ALBUMIN (BEAKER) (test 2.7 g/dL 3.5-5.0 abyh=5454) ALKALINE PHOSPHATASE 97 U/L 40-150 (BEAKER) (test kivz=784) BILIRUBIN TOTAL (BEAKER) 0.3 mg/dL 0.2-1.2 (test ksnu=887) SODIUM (BEAKER) (test 140 meq/L 136-145 yiul=060) POTASSIUM (BEAKER) (test 3.4 meq/L 3.5-5.1 jvgj=203) CHLORIDE (BEAKER) (test 105 meq/L 98-107 oxmf=442) CO2 (BEAKER) (test 26 meq/L 22-29 voyu=759) BLOOD UREA NITROGEN 7 mg/dL 7-21 (BEAKER) (test llnz=059) CREATININE (BEAKER) (test 0.50 mg/dL 0.57-1.25 ynih=124) GLUCOSE RANDOM (BEAKER) 96 mg/dL 70-105 (test zjdw=817) CALCIUM (BEAKER) (test 8.1 mg/dL 8.4-10.2 oetf=497) AST (SGOT) (BEAKER) (test 27 U/L 5-34 wfnp=606) ALT (SGPT) (BEAKER) (test 19 U/L 6-55 yhge=994) EGFR (BEAKER) (test 165 mL/min/1.73 sq ESTIMATED GFR IS NOT rbnc=0894) m ACCURATE CREATININE CLEARANCE IN PREDICTING GLOMERULAR FILTRATION RATE. ESTIMATED GFR IS NOT APPLICABLE FOR DIALYSIS PATIENTS. CBC (HEMOGRAM ONLY)2016-12-04 05:45:00 Test Item Value Reference Range Comments WHITE BLOOD CELL COUNT (BEAKER) (test zypk=013) 6.9 K/ L 3.5-10.5 RED BLOOD CELL COUNT (BEAKER) (test jddx=364) 2.72 M/ L 4.63-6.08 HEMOGLOBIN (BEAKER) (test jljl=219) 8.6 GM/DL 13.7-17.5 HEMATOCRIT (BEAKER) (test rjnb=885) 25.5 % 40.1-51.0 MEAN CORPUSCULAR VOLUME (BEAKER) (test oaxb=705) 93.8 fL 79.0-92.2 MEAN CORPUSCULAR HEMOGLOBIN (BEAKER) (test 31.6 pg 25.7-32.2 rlvx=343) MEAN CORPUSCULAR HEMOGLOBIN CONC (BEAKER) (test 33.7 GM/DL 32.3-36.5 bocq=987) RED CELL DISTRIBUTION WIDTH (BEAKER) (test 15.0 % 11.6-14.4 dnft=012) PLATELET COUNT (BEAKER) (test ivku=489) 272 K/CU MM 150-450 MEAN PLATELET VOLUME (BEAKER) (test opui=752) 10.4 fL 9.4-12.4 NUCLEATED RED BLOOD CELLS (BEAKER) (test 0 /100 WBC 0-0 jwdu=464) COMPREHENSIVE METABOLIC [id number] 10:08:00 Test Item Value Reference Range Comments TOTAL PROTEIN (BEAKER) 5.8 gm/dL 6.0-8.3 (test vlps=205) ALBUMIN (BEAKER) (test 2.8 g/dL 3.5-5.0 dwvj=6170) ALKALINE PHOSPHATASE 94 U/L 40-150 (BEAKER) (test tukz=115) BILIRUBIN TOTAL (BEAKER) 0.3 mg/dL 0.2-1.2 (test xtpr=087) SODIUM (BEAKER) (test 138 meq/L 136-145 yrrx=672) POTASSIUM (BEAKER) (test 3.6 meq/L 3.5-5.1 cbwg=516) CHLORIDE (BEAKER) (test 103 meq/L 98-107 zweo=970) CO2 (BEAKER) (test 26 meq/L 22-29 hxgj=551) BLOOD UREA NITROGEN 14 mg/dL 7-21 (BEAKER) (test moid=905) CREATININE (BEAKER) (test 0.54 mg/dL 0.57-1.25 nonc=050) GLUCOSE RANDOM (BEAKER) 86 mg/dL 70-105 (test bdxv=504) CALCIUM (BEAKER) (test 8.2 mg/dL 8.4-10.2 mbhw=335) AST (SGOT) (BEAKER) (test 35 U/L 5-34 tyxg=264) ALT (SGPT) (BEAKER) (test 24 U/L 6-55 imwy=641) EGFR (BEAKER) (test 151 mL/min/1.73 sq ESTIMATED GFR IS NOT gerf=2148) m ACCURATE CREATININE CLEARANCE IN PREDICTING GLOMERULAR FILTRATION RATE. ESTIMATED GFR IS NOT APPLICABLE FOR DIALYSIS PATIENTS. CBC (HEMOGRAM ONLY)2016-12-03 09:38:00 Test Item Value Reference Range Comments WHITE BLOOD CELL COUNT (BEAKER) (test skyk=354) 6.5 K/ L 3.5-10.5 RED BLOOD CELL COUNT (BEAKER) (test wxre=153) 2.54 M/ L 4.63-6.08 HEMOGLOBIN (BEAKER) (test qmjg=183) 8.1 GM/DL 13.7-17.5 HEMATOCRIT (BEAKER) (test hidg=498) 24.4 % 40.1-51.0 MEAN CORPUSCULAR VOLUME (BEAKER) (test rjbs=425) 96.1 fL 79.0-92.2 MEAN CORPUSCULAR HEMOGLOBIN (BEAKER) (test 31.9 pg 25.7-32.2 iiqc=017) MEAN CORPUSCULAR HEMOGLOBIN CONC (BEAKER) (test 33.2 GM/DL 32.3-36.5 mgeq=206) RED CELL DISTRIBUTION WIDTH (BEAKER) (test 15.1 % 11.6-14.4 fpgl=610) PLATELET COUNT (BEAKER) (test xkst=910) 233 K/CU MM 150-450 MEAN PLATELET VOLUME (BEAKER) (test tnqr=812) 10.8 fL 9.4-12.4 NUCLEATED RED BLOOD CELLS (BEAKER) (test 0 /100 WBC 0-0 ambj=811) POCT-GLUCOSE [id number] 12:08:00 Test Item Value Reference Range Comments POC-GLUCOSE METER (BEAKER) 111 mg/dL 70-[address] [facility] [address] [facility] (test imqy=8004) [facility] [place] [address] POCT-GLUCOSE [id number] 08:40:00 Test Item Value Reference Range Comments POC-GLUCOSE METER (BEAKER) 184 mg/dL 70-[address] [facility] [address] (test seme=2410) [facility] [place] [address] [id number] 05:57:00 Test Item Value Reference Range Comments MAGNESIUM (BEAKER) (test kxsd=954) 2.1 mg/dL 1.6-2.6 BASIC METABOLIC [id number] 05:57:00 Test Item Value Reference Range Comments SODIUM (BEAKER) (test 139 meq/L 136-145 zulx=910) POTASSIUM (BEAKER) (test 3.4 meq/L 3.5-5.1 adrj=600) CHLORIDE (BEAKER) (test 102 meq/L 98-107 zdrx=627) CO2 (BEAKER) (test 26 meq/L 22-29 acfh=790) BLOOD UREA NITROGEN 15 mg/dL 7-21 (BEAKER) (test borx=671) CREATININE (BEAKER) (test 0.62 mg/dL 0.57-1.25 mzvl=595) GLUCOSE RANDOM (BEAKER) 104 mg/dL 70-105 (test pqyo=165) CALCIUM (BEAKER) (test 8.8 mg/dL 8.4-10.2 lotq=167) EGFR (BEAKER) (test 129 mL/min/1.73 sq m ESTIMATED GFR IS NOT lcwg=6418) ACCURATE CREATININE CLEARANCE IN PREDICTING GLOMERULAR FILTRATION RATE. ESTIMATED GFR IS NOT APPLICABLE FOR DIALYSIS PATIENTS. CBC (HEMOGRAM ONLY)2016-12-02 05:25:00 Test Item Value Reference Range Comments WHITE BLOOD CELL COUNT (BEAKER) (test tecq=050) 8.2 K/ L 3.5-10.5 RED BLOOD CELL COUNT (BEAKER) (test ywih=424) 2.68 M/ L 4.63-6.08 HEMOGLOBIN (BEAKER) (test oexb=355) 8.6 GM/DL 13.7-17.5 HEMATOCRIT (BEAKER) (test vobj=048) 24.7 % 40.1-51.0 MEAN CORPUSCULAR VOLUME (BEAKER) (test oqgn=573) 92.2 fL 79.0-92.2 MEAN CORPUSCULAR HEMOGLOBIN (BEAKER) (test 32.1 pg 25.7-32.2 odqp=220) MEAN CORPUSCULAR HEMOGLOBIN CONC (BEAKER) (test 34.8 GM/DL 32.3-36.5 eysd=791) RED CELL DISTRIBUTION WIDTH (BEAKER) (test 15.0 % 11.6-14.4 jdam=457) PLATELET COUNT (BEAKER) (test rdhj=580) 226 K/CU MM 150-450 MEAN PLATELET VOLUME (BEAKER) (test etke=308) 10.7 fL 9.4-12.4 NUCLEATED RED BLOOD CELLS (BEAKER) (test 0 /100 WBC 0-0 cbdd=370) POCT-GLUCOSE [id number] 21:18:00 Test Item Value Reference Range Comments POC-GLUCOSE METER (BEAKER) 118 mg/dL 70-110 TESTED AT [address] (test fdkz=3416) [place] [id number] POCT-GLUCOSE [id number] 17:33:00 Test Item Value Reference Range Comments POC-GLUCOSE METER (BEAKER) 102 mg/dL 70-110 TESTED AT [address] (test wgzm=3997) [place] [id number] POCT-GLUCOSE [id number] 12:06:00 Test Item Value Reference Range Comments POC-GLUCOSE METER (BEAKER) 188 mg/dL 70-110 TESTED AT [address] (test rbgk=9221) [place] [id number] POCT-GLUCOSE [id number] 08:31:00 Test Item Value Reference Range Comments POC-GLUCOSE METER (BEAKER) 109 mg/dL 70-110 TESTED AT [address] (test wojq=4721) [place] [id number] [id number] 06:07:00 Test Item Value Reference Range Comments MAGNESIUM (BEAKER) (test slcz=191) 2.0 mg/dL 1.6-2.6 BASIC METABOLIC [id number] 06:07:00 Test Item Value Reference Range Comments SODIUM (BEAKER) (test 139 meq/L 136-145 pdrv=176) POTASSIUM (BEAKER) (test 3.6 meq/L 3.5-5.1 lroh=042) CHLORIDE (BEAKER) (test 104 meq/L 98-107 hlbu=763) CO2 (BEAKER) (test 27 meq/L 22-29 qcgg=466) BLOOD UREA NITROGEN 15 mg/dL 7-21 (BEAKER) (test bnqm=711) CREATININE (BEAKER) (test 0.60 mg/dL 0.57-1.25 dghi=410) GLUCOSE RANDOM (BEAKER) 104 mg/dL 70-105 (test rxdz=417) CALCIUM (BEAKER) (test 9.0 mg/dL 8.4-10.2 qglg=060) EGFR (BEAKER) (test 134 mL/min/1.73 sq m ESTIMATED GFR IS NOT toyr=3595) ACCURATE CREATININE CLEARANCE IN PREDICTING GLOMERULAR FILTRATION RATE. ESTIMATED GFR IS NOT APPLICABLE FOR DIALYSIS PATIENTS. PT/[id number] 05:40:00 Test Item Value Reference Range Comments PROTIME (BEAKER) (test mcjo=165) 14.1 seconds 11.7-14.7 INR (BEAKER) (test lpfz=199) 1.1 <=5.9 PARTIAL THROMBOPLASTIN TIME (BEAKER) (test 46.2 seconds 22.5-36.0 mdxg=820) RECOMMENDED COUMADIN/WARFARIN INR THERAPY RANGESSTANDARD DOSE: 2.0 - 3.0 Includes: PROPHYLAXIS forvenous thrombosis, systemic embolization; TREATMENT for venous thrombosis and/or pulmonary embolus.HIGH RISK: Target INR is 2.5-3.5 for patients with mechanical heart valves.CBC (HEMOGRAM ONLY)2016-12-01 05:18:00 Test Item Value Reference Range Comments WHITE BLOOD CELL COUNT (BEAKER) (test ixjy=644) 9.1 K/ L 3.5-10.5 RED BLOOD CELL COUNT (BEAKER) (test hhqa=322) 2.69 M/ L 4.63-6.08 HEMOGLOBIN (BEAKER) (test gwda=560) 8.5 GM/DL 13.7-17.5 HEMATOCRIT (BEAKER) (test jboh=753) 25.6 % 40.1-51.0 MEAN CORPUSCULAR VOLUME (BEAKER) (test lrxx=399) 95.2 fL 79.0-92.2 MEAN CORPUSCULAR HEMOGLOBIN (BEAKER) (test 31.6 pg 25.7-32.2 dabv=030) MEAN CORPUSCULAR HEMOGLOBIN CONC (BEAKER) (test 33.2 GM/DL 32.3-36.5 drlo=038) RED CELL DISTRIBUTION WIDTH (BEAKER) (test 15.0 % 11.6-14.4 eetj=069) PLATELET COUNT (BEAKER) (test caju=576) 190 K/CU MM 150-450 MEAN PLATELET VOLUME (BEAKER) (test uvlw=880) 10.7 fL 9.4-12.4 NUCLEATED RED BLOOD CELLS (BEAKER) (test 0 /100 WBC 0-0 keyn=702) POCT-GLUCOSE [id number] 21:01:00 Test Item Value Reference Range Comments POC-GLUCOSE METER (BEAKER) 118 mg/dL 70-110 TESTED AT [address] (test ujju=4839) [place] [id number] POCT-GLUCOSE [id number] 18:51:00 Test Item Value Reference Range Comments POC-GLUCOSE METER (BEAKER) 117 mg/dL 70-110 TESTED AT [address] (test vrrs=5264) [place] [id number] POCT-GLUCOSE [id number] 14:02:00 Test Item Value Reference Range Comments POC-GLUCOSE METER (BEAKER) 129 mg/dL 70-110 TESTED AT [address] (test hdkt=8870) [place] [id number] 04:19:00 Test Item Value Reference Range Comments MAGNESIUM (BEAKER) (test tdgu=774) 1.8 mg/dL 1.6-2.6 BASIC METABOLIC [id number] 04:19:00 Test Item Value Reference Range Comments SODIUM (BEAKER) (test 138 meq/L 136-145 ulna=007) POTASSIUM (BEAKER) (test 4.0 meq/L 3.5-5.1 nbjw=039) CHLORIDE (BEAKER) (test 107 meq/L 98-107 psqp=769) CO2 (BEAKER) (test 23 meq/L 22-29 iqxx=636) BLOOD UREA NITROGEN 8 mg/dL 7-21 (BEAKER) (test pzcb=802) CREATININE (BEAKER) (test 0.55 mg/dL 0.57-1.25 ubuf=876) GLUCOSE RANDOM (BEAKER) 119 mg/dL 70-105 (test epbt=176) CALCIUM (BEAKER) (test 8.8 mg/dL 8.4-10.2 bfev=805) EGFR (BEAKER) (test 148 mL/min/1.73 sq m ESTIMATED GFR IS NOT ebqs=8968) ACCURATE CREATININE CLEARANCE IN PREDICTING GLOMERULAR FILTRATION RATE. ESTIMATED GFR IS NOT APPLICABLE FOR DIALYSIS PATIENTS. [id number] 04:13:00 Test Item Value Reference Range Comments PROTIME (BEAKER) (test ssyj=716) 14.9 seconds 11.7-14.7 INR (BEAKER) (test guni=687) 1.2 <=5.9 PARTIAL THROMBOPLASTIN TIME (BEAKER) (test 42.4 seconds 22.5-36.0 fwve=474) RECOMMENDED COUMADIN/WARFARIN INR THERAPY RANGESSTANDARD DOSE: 2.0 - 3.0 Includes: PROPHYLAXIS forvenous thrombosis, systemic embolization; TREATMENT for venous thrombosis and/or pulmonary embolus.HIGH RISK: Target INR is 2.5-3.5 for patients with mechanical heart valves.Prior to initiating heparinPrior to initiating [id number] 04:13:00 Test Item Value Reference Range Comments PARTIAL THROMBOPLASTIN TIME (BEAKER) (test 42.4 seconds 22.5-36.0 gcve=133) LACTIC ACID, ARTERIAL, WHOLE [id number] 04:09:00 Test Item Value Reference Range Comments LACTATE BLOOD ARTERIAL (2) (BEAKER) (test 1.1 mmol/L 0.5-2.2 ujss=9857) Effective 08/17/2015: Units/Reference Range ChangeNew: 0.5-2.2 mmol/L Previous: 5 -20 mg/dLCBC (HEMOGRAM ONLY)2016-11-30 04:03:00 Test Item Value Reference Range Comments WHITE BLOOD CELL COUNT (BEAKER) (test soaj=698) 10.5 K/ L 3.5-10.5 RED BLOOD CELL COUNT (BEAKER) (test enkj=283) 2.93 M/ L 4.63-6.08 HEMOGLOBIN (BEAKER) (test fchf=744) 9.4 GM/DL 13.7-17.5 HEMATOCRIT (BEAKER) (test slrp=022) 27.5 % 40.1-51.0 MEAN CORPUSCULAR VOLUME (BEAKER) (test bxme=783) 93.9 fL 79.0-92.2 MEAN CORPUSCULAR HEMOGLOBIN (BEAKER) (test 32.1 pg 25.7-32.2 bxwa=972) MEAN CORPUSCULAR HEMOGLOBIN CONC (BEAKER) (test 34.2 GM/DL 32.3-36.5 loge=476) RED CELL DISTRIBUTION WIDTH (BEAKER) (test 15.3 % 11.6-14.4 hkyw=807) PLATELET COUNT (BEAKER) (test zeko=823) 189 K/CU MM 150-450 MEAN PLATELET VOLUME (BEAKER) (test zfav=053) 10.8 fL 9.4-12.4 NUCLEATED RED BLOOD CELLS (BEAKER) (test 0 /100 WBC 0-0 kdpf=164) CALCIUM, [id number] 03:54:00 Test Item Value Reference Range Comments CALCIUM IONIZED (BEAKER) (test rnnx=647) 1.14 mmol/L 1.12-1.27 PH, BLOOD (BEAKER) (test hsjz=6348) 7.49 BLOOD GAS, [id number] 03:54:00 Test Item Value Reference Range Comments PH ARTERIAL (BEAKER) (test chhy=808) 7.48 7.35-7.45 PCO2 ARTERIAL (BEAKER) (test qbbt=672) 36 mmHg 35-45 PO2 ARTERIAL (BEAKER) (test icuj=833) 81 mmHg 80-90 O2 SATURATION ARTERIAL (BEAKER) (test kqxw=453) 96.4 % 96.0-97.0 HCO3 ARTERIAL (BEAKER) (test dmyk=960) 26 mmol/L 21-29 BASE EXCESS ARTERIAL (BEAKER) (test triv=811) 2.5 mmol/L -2.0-3.0 PATIENT TEMPERATURE (BEAKER) (test fauf=5564) 37.6 C FIO2 (BEAKER) (test nqbm=6388) 36.0 % POCT-GLUCOSE [id number] 17:32:00 Test Item Value Reference Range Comments POC-GLUCOSE METER (BEAKER) 121 mg/dL 70-[address] [facility] [address] [facility] (test mlav=8477) [facility] [place] [address] PLATELET AGGREGATION: FUNCTION [id number] 14:46:00 Test Item Value Reference Range Comments WEAK ADP RESULT(BEAKER) (test 82 % 60-91 dfhl=9517) PLATELET FUNCTION SCREEN 60-100% indicates normal INTERP (BEAKER) (test platelet function stum=6723) [id number]-POMJTQVJCLR-[id number] (BEAKER) Mari Phelan MD (electronic (test xvgv=4381) signature) PLATELET COUNT AGG (BEAKER) 221 K/CU MM 150-450 (test dnck=7098) POCT-GLUCOSE [id number] 12:58:00 Test Item Value Reference Range Comments POC-GLUCOSE METER (BEAKER) 129 mg/dL 70-110 TESTED AT [address] (test pxyi=3179) [place] [address] HEMOGLOBIN [id number] 09:09:00 Test Item Value Reference Range Comments HEMOGLOBIN A1C (BEAKER) (test smfr=834) 5.1 % 4.3-6.1 BLOOD GAS, [id number] 06:57:00 Test Item Value Reference Range Comments PH ARTERIAL (BEAKER) (test isaq=376) 7.46 7.35-7.45 PCO2 ARTERIAL (BEAKER) (test vxbl=212) 35 mmHg 35-45 PO2 ARTERIAL (BEAKER) (test acmb=394) 130 mmHg 80-90 O2 SATURATION ARTERIAL (BEAKER) (test qgci=858) 98.7 % 96.0-97.0 HCO3 ARTERIAL (BEAKER) (test gfpk=858) 24 mmol/L 21-29 BASE EXCESS ARTERIAL (BEAKER) (test itom=291) 1.1 mmol/L -2.0-3.0 PATIENT TEMPERATURE (BEAKER) (test cpsb=4416) 37.8 C FIO2 (BEAKER) (test xtlg=2643) 40.0 % POCT-GLUCOSE [id number] 06:01:00 Test Item Value Reference Range Comments POC-GLUCOSE METER (BEAKER) 154 mg/dL 70-110 TESTED AT [address] (test zivt=2206) [place] [address] [id number] 05:02:00 Test Item Value Reference Range Comments MAGNESIUM (BEAKER) (test stxr=176) 2.0 mg/dL 1.6-2.6 BASIC METABOLIC [id number] 05:02:00 Test Item Value Reference Range Comments SODIUM (BEAKER) (test 140 meq/L 136-145 ytlh=343) POTASSIUM (BEAKER) (test 4.2 meq/L 3.5-5.1 nsrz=640) CHLORIDE (BEAKER) (test 109 meq/L 98-107 fnza=688) CO2 (BEAKER) (test 23 meq/L 22-29 baos=021) BLOOD UREA NITROGEN 7 mg/dL 7-21 (BEAKER) (test fjgd=043) CREATININE (BEAKER) (test 0.62 mg/dL 0.57-1.25 jfhb=747) GLUCOSE RANDOM (BEAKER) 153 mg/dL 70-105 (test oerb=989) CALCIUM (BEAKER) (test 8.4 mg/dL 8.4-10.2 cvqb=358) EGFR (BEAKER) (test 129 mL/min/1.73 sq m ESTIMATED GFR IS NOT fjsy=7495) ACCURATE CREATININE CLEARANCE IN PREDICTING GLOMERULAR FILTRATION RATE. ESTIMATED GFR IS NOT APPLICABLE FOR DIALYSIS PATIENTS. [id number] 04:56:00 Test Item Value Reference Range Comments PROTIME (BEAKER) (test dyng=992) 13.9 seconds 11.7-14.7 INR (BEAKER) (test atqx=514) 1.1 <=5.9 PARTIAL THROMBOPLASTIN TIME (BEAKER) (test 36.5 seconds 22.5-36.0 dfry=092) RECOMMENDED COUMADIN/WARFARIN INR THERAPY RANGESSTANDARD DOSE: 2.0 - 3.0 Includes: PROPHYLAXIS forvenous thrombosis, systemic embolization; TREATMENT for venous thrombosis and/or pulmonary embolus.HIGH RISK: Target INR is 2.5-3.5 for patients with mechanical heart valves.CBC W/PLT COUNT & AUTO [id number] 04:54:00 Test Item Value Reference Range Comments WHITE BLOOD CELL COUNT (BEAKER) (test yeti=919) 8.8 K/ L 3.5-10.5 RED BLOOD CELL COUNT (BEAKER) (test kcgs=049) 3.28 M/ L 4.63-6.08 HEMOGLOBIN (BEAKER) (test pmdw=992) 10.5 GM/DL 13.7-17.5 HEMATOCRIT (BEAKER) (test bsyw=589) 30.8 % 40.1-51.0 MEAN CORPUSCULAR VOLUME (BEAKER) (test zche=299) 93.9 fL 79.0-92.2 MEAN CORPUSCULAR HEMOGLOBIN (BEAKER) (test 32.0 pg 25.7-32.2 odpq=790) MEAN CORPUSCULAR HEMOGLOBIN CONC (BEAKER) (test 34.1 GM/DL 32.3-36.5 gend=102) RED CELL DISTRIBUTION WIDTH (BEAKER) (test 15.7 % 11.6-14.4 chvf=758) PLATELET COUNT (BEAKER) (test wddy=992) 219 K/CU MM 150-450 MEAN PLATELET VOLUME (BEAKER) (test rnlj=513) 11.0 fL 9.4-12.4 NUCLEATED RED BLOOD CELLS (BEAKER) (test 0 /100 WBC 0-0 ytxy=499) NEUTROPHILS RELATIVE PERCENT (BEAKER) (test 74 % unmc=828) LYMPHOCYTES RELATIVE PERCENT (BEAKER) (test 7 % dbme=473) MONOCYTES RELATIVE PERCENT (BEAKER) (test 19 % jjpn=676) EOSINOPHILS RELATIVE PERCENT (BEAKER) (test 0 % uumy=782) BASOPHILS RELATIVE PERCENT (BEAKER) (test 0 % nuaz=087) NEUTROPHILS ABSOLUTE COUNT (BEAKER) (test 6.45 K/ L 1.78-5.38 jzms=806) LYMPHOCYTES ABSOLUTE COUNT (BEAKER) (test 0.63 K/ L 1.32-3.57 uzmp=188) MONOCYTES ABSOLUTE COUNT (BEAKER) (test 1.64 K/ L 0.30-0.82 lqow=883) EOSINOPHILS ABSOLUTE COUNT (BEAKER) (test 0.01 K/ L 0.04-0.54 pixl=616) BASOPHILS ABSOLUTE COUNT (BEAKER) (test 0.03 K/ L 0.01-0.08 bkyj=093) IMMATURE GRANULOCYTES-RELATIVE PERCENT (BEAKER) 0 % 0-1 (test wqap=9440) LACTIC ACID, ARTERIAL, WHOLE [id number] 04:39:00 Test Item Value Reference Range Comments LACTATE BLOOD ARTERIAL (2) (BEAKER) (test 1.2 mmol/L 0.5-2.2 fskq=5778) Effective 08/17/2015: Units/Reference Range ChangeNew: 0.5-2.2 mmol/L Previous: 5 -20 mg/dLCALCIUM, [id number] 04:11:00 Test Item Value Reference Range Comments CALCIUM IONIZED (BEAKER) (test gihx=128) 1.17 mmol/L 1.12-1.27 PH, BLOOD (BEAKER) (test hbnv=4282) 7.44 BLOOD GAS, [id number] 04:11:00 Test Item Value Reference Range Comments PH ARTERIAL (BEAKER) (test xzkh=196) 7.42 7.35-7.45 PCO2 ARTERIAL (BEAKER) (test rpeu=511) 39 mmHg 35-45 PO2 ARTERIAL (BEAKER) (test muwn=750) 110 mmHg 80-90 O2 SATURATION ARTERIAL (BEAKER) (test vwwz=919) 97.9 % 96.0-97.0 HCO3 ARTERIAL (BEAKER) (test dbnz=152) 25 mmol/L 21-29 BASE EXCESS ARTERIAL (BEAKER) (test agqc=181) 0.6 mmol/L -2.0-3.0 PATIENT TEMPERATURE (BEAKER) (test swme=5456) 38.2 C FIO2 (BEAKER) (test svka=7440) 40.0 % OXYGEN SATURATION, [id number] 04:09:00 Test Item Value Reference Range Comments O2 SATURATION (MEASURED) (BEAKER) (test mybe=1045) 80.7 % POCT-GLUCOSE [id number] 02:46:00 Test Item Value Reference Range Comments POC-GLUCOSE METER (BEAKER) 150 mg/dL 70-110 TESTED AT [address] (test iacw=5239) [facility] [place] [address] POCT-GLUCOSE [id number] 18:29:00 Test Item Value Reference Range Comments POC-GLUCOSE METER (BEAKER) 111 mg/dL 70-110 TESTED AT [address] (test eigm=5032) [facility] [place] [address] [id number] 16:27:00 Test Item Value Reference Range Comments POTASSIUM (BEAKER) (test yfda=109) 4.2 meq/L 3.5-5.1 [id number] 16:27:00 Test Item Value Reference Range Comments MAGNESIUM (BEAKER) (test bwtl=908) 2.1 mg/dL 1.6-2.6 [id number] 16:27:00 Test Item Value Reference Range Comments SODIUM (BEAKER) (test aiyu=015) 141 meq/L 136-145 BASIC METABOLIC [id number] 16:27:00 Test Item Value Reference Range Comments SODIUM (BEAKER) (test 141 meq/L 136-145 shbc=302) POTASSIUM (BEAKER) (test 4.2 meq/L 3.5-5.1 mucu=743) CHLORIDE (BEAKER) (test 112 meq/L 98-107 sprw=158) CO2 (BEAKER) (test 21 meq/L 22-29 sekv=071) BLOOD UREA NITROGEN 8 mg/dL 7-21 (BEAKER) (test uvfe=457) CREATININE (BEAKER) (test 0.61 mg/dL 0.57-1.25 bobv=097) GLUCOSE RANDOM (BEAKER) 167 mg/dL 70-105 (test gsfc=504) CALCIUM (BEAKER) (test 8.5 mg/dL 8.4-10.2 atiq=535) EGFR (BEAKER) (test 131 mL/min/1.73 sq m ESTIMATED GFR IS NOT ebei=5550) ACCURATE CREATININE CLEARANCE IN PREDICTING GLOMERULAR FILTRATION RATE. ESTIMATED GFR IS NOT APPLICABLE FOR DIALYSIS PATIENTS. LACTIC ACID, ARTERIAL, WHOLE [id number] 16:23:00 Test Item Value Reference Range Comments LACTATE BLOOD ARTERIAL (2) 1.8 mmol/L 0.5-2.2 Specimen slightly hemolyzed (BEAKER) (test eyxz=9151) Effective 08/17/2015: Units/Reference Range ChangeNew: 0.5-2.2 mmol/L Previous: 5 -20 mg/dLPT/[id number] 16:18:00 Test Item Value Reference Range Comments PROTIME (BEAKER) (test xszq=880) 14.2 seconds 11.7-14.7 INR (BEAKER) (test chxh=060) 1.1 <=5.9 PARTIAL THROMBOPLASTIN TIME (BEAKER) (test 35.0 seconds 22.5-36.0 anji=499) RECOMMENDED COUMADIN/WARFARIN INR THERAPY RANGESSTANDARD DOSE: 2.0 - 3.0 Includes: PROPHYLAXIS forvenous thrombosis, systemic embolization; TREATMENT for venous thrombosis and/or pulmonary embolus.HIGH RISK: Target INR is 2.5-3.5 for patients with mechanical heart valves.HEMOGLOBIN AND [id number] 16 :10:00 Test Item Value Reference Range Comments HEMOGLOBIN (BEAKER) (test jlzt=028) 10.0 GM/DL 13.7-17.5 HEMATOCRIT (BEAKER) (test kcil=128) 29.0 % 40.1-51.0 CBC (HEMOGRAM ONLY)[id number] 16:10:00 Test Item Value Reference Range Comments WHITE BLOOD CELL COUNT (BEAKER) (test xcrg=875) 7.6 K/ L 3.5-10.5 RED BLOOD CELL COUNT (BEAKER) (test qjzg=968) 3.06 M/ L 4.63-6.08 HEMOGLOBIN (BEAKER) (test szoh=956) 10.0 GM/DL 13.7-17.5 HEMATOCRIT (BEAKER) (test gzgx=377) 29.0 % 40.1-51.0 MEAN CORPUSCULAR VOLUME (BEAKER) (test ncxf=035) 94.8 fL 79.0-92.2 MEAN CORPUSCULAR HEMOGLOBIN (BEAKER) (test 32.7 pg 25.7-32.2 gpst=638) MEAN CORPUSCULAR HEMOGLOBIN CONC (BEAKER) (test 34.5 GM/DL 32.3-36.5 fpka=663) RED CELL DISTRIBUTION WIDTH (BEAKER) (test 15.2 % 11.6-14.4 juqb=723) PLATELET COUNT (BEAKER) (test eslv=682) 208 K/CU MM 150-450 MEAN PLATELET VOLUME (BEAKER) (test qbsg=056) 10.4 fL 9.4-12.4 NUCLEATED RED BLOOD CELLS (BEAKER) (test 0 /100 WBC 0-0 gvgo=587) BLOOD GAS, [id number] 16:03:00 Test Item Value Reference Range Comments PH ARTERIAL (BEAKER) (test hnud=161) 7.36 7.35-7.45 PCO2 ARTERIAL (BEAKER) (test kbbb=947) 45 mmHg 35-45 PO2 ARTERIAL (BEAKER) (test trrz=957) 142 mmHg 80-90 O2 SATURATION ARTERIAL (BEAKER) (test gzey=374) 98.8 % 96.0-97.0 HCO3 ARTERIAL (BEAKER) (test zfoi=144) 25 mmol/L 21-29 BASE EXCESS ARTERIAL (BEAKER) (test zhfq=372) -1.2 mmol/L -2.0-3.0 PATIENT TEMPERATURE (BEAKER) (test qbjl=3395) 35.8 C FIO2 (BEAKER) (test daqz=7657) 60.0 % CALCIUM, [id number] 16:03:00 Test Item Value Reference Range Comments CALCIUM IONIZED (BEAKER) (test hxjn=661) 1.18 mmol/L 1.12-1.27 PH, BLOOD ([facility]) (test pims=9464) 7.36 OXYGEN SATURATION, [id number] 16:02:00 Test Item Value Reference Range Comments O2 SATURATION (MEASURED) ([facility]) (test ftoz=8103) 82.9 % [id number] 15:26:00 Test Item Value Reference Range Comments ACTIVATED CLOTTING TIME 120 sec TESTED AT [address] [facility] (test ryrg=527) [place] [address] [id number] 15:26:00 Test Item Value Reference Range Comments ACTIVATED CLOTTING TIME 802 sec TESTED AT [address] [facility] (test wbsk=312) [place] [address] [id number] 15:26:00 Test Item Value Reference Range Comments ACTIVATED CLOTTING TIME 884 sec TESTED AT [address] [facility] (test mtlk=966) [place] [address] [id number] 15:26:00 Test Item Value Reference Range Comments ACTIVATED CLOTTING TIME 621 sec TESTED AT [address] (BEAKER) (test unwo=316) [place] [address] THROMBOELASTOGRAPH (TEG)2016-11-28 14:00:00 Test Item Value Reference Range Comments TEG ACTIVATED CLOTTING TIME (BEAKER) (test 8.7 minutes 4.0-7.0 kysi=5491) TEG FIBRINOGEN ACTIVITY (BEAKER) (test 73.1 degrees 61.0-73.0 ssji=1942) TEG PLT. AGGREGATION (BEAKER) (test baky=9698) 70.6 MM 55.0-65.0 TGH ACTIVATED CLOTTING TIME (BEAKER) (test 8.7 minutes 4.0-7.0 osku=3493) TGH FIBRINOGEN ACTIVITY (BEAKER) (test 73.0 degrees 61.0-73.0 fsgr=3242) TGH PLT. AGGREGATION (BEAKER) (test dcug=4377) 69.3 MM 55.0-65.0 [id number] 13:28:00 Test Item Value Reference Range Comments FIBRINOGEN LEVEL (BEAKER) (test zmvr=778) 458 mg/dl 225-434 [id number] 13:28:00 Test Item Value Reference Range Comments PARTIAL THROMBOPLASTIN TIME (BEAKER) (test 39.7 seconds 22.5-36.0 crsn=032) PROTHROMBIN [id number] 13:27:00 Test Item Value Reference Range Comments PROTIME (BEAKER) (test iolo=284) 17.4 seconds 11.7-14.7 INR (BEAKER) (test mnmh=869) 1.4 <=5.9 RECOMMENDED COUMADIN/WARFARIN INR THERAPY RANGESSTANDARD DOSE: 2.0 - 3.0 Includes: PROPHYLAXIS forvenous thrombosis, systemic embolization; TREATMENT for venous thrombosis and/or pulmonary embolus.HIGH RISK: Target INR is 2.5-3.5 for patients with mechanical heart valves.PLATELET [id number] 13:21:00 Test Item Value Reference Range Comments PLATELET COUNT (BEAKER) 151 K/CU MM 150-450 Discordant result compared to (test fwex=252) previous result; clinical correlation required. CALCIUM, [id number] 13:06:00 Test Item Value Reference Range Comments CALCIUM IONIZED (BEAKER) (test ioti=276) 1.07 mmol/L 1.12-1.27 PH, BLOOD (BEAKER) (test jwof=3527) 7.31 SODIUM NA-STAT [id number] 13:05:00 Test Item Value Reference Range Comments SODIUM (BEAKER) (test pexh=970) 135 meq/L 135-148 POTASSIUM-STAT [id number] 13:05:00 Test Item Value Reference Range Comments POTASSIUM (BEAKER) (test wqor=515) 4.4 meq/L 3.6-5.5 BLOOD GAS, [id number] 13:05:00 Test Item Value Reference Range Comments PH ARTERIAL (BEAKER) (test nbwy=055) 7.34 7.35-7.45 PCO2 ARTERIAL (BEAKER) (test qrlj=095) 45 mmHg 35-45 PO2 ARTERIAL (BEAKER) (test uqme=420) 292 mmHg 80-90 O2 SATURATION ARTERIAL (BEAKER) (test wdal=227) 99.6 % 96.0-97.0 HCO3 ARTERIAL (BEAKER) (test lbvr=058) 24 mmol/L 21-29 BASE EXCESS ARTERIAL (BEAKER) (test koar=314) -2.1 mmol/L -2.0-3.0 PATIENT TEMPERATURE (BEAKER) (test ptuf=3341) 35.2 C FIO2 (BEAKER) (test baxe=3464) 67.0 % GLUCOSE-STAT [id number] 13:05:00 Test Item Value Reference Range Comments GLUCOSE RANDOM (BEAKER) (test lomk=636) 145 mg/dL 70-110 HGB/HCT (H&H) - STAT [id number] 13:05:00 Test Item Value Reference Range Comments HEMOGLOBIN (BEAKER) (test wtkq=719) 10.2 g/dL 13.0-16.8 HEMATOCRIT (BEAKER) (test tabh=245) 30.0 % 40.0-50.0 BLOOD GAS, [id number] 12:26:00 Test Item Value Reference Range Comments PH ARTERIAL (BEAKER) (test mrde=081) 7.38 7.35-7.45 PCO2 ARTERIAL (BEAKER) (test gzvh=216) 42 mmHg 35-45 PO2 ARTERIAL (BEAKER) (test ltcr=654) 133 mmHg 80-90 O2 SATURATION ARTERIAL (BEAKER) (test zhug=867) 98.6 % 96.0-97.0 HCO3 ARTERIAL (BEAKER) (test nubg=276) 24 mmol/L 21-29 BASE EXCESS ARTERIAL (BEAKER) (test tnak=123) -0.7 mmol/L -2.0-3.0 PATIENT TEMPERATURE (BEAKER) (test dsob=7666) 37.0 C FIO2 (BEAKER) (test kgft=7032) 65.0 % GLUCOSE-STAT [id number] 12:26:00 Test Item Value Reference Range Comments GLUCOSE RANDOM (BEAKER) (test jlxo=670) 132 mg/dL 70-110 HGB/HCT (H&H) - STAT [id number] 12:26:00 Test Item Value Reference Range Comments HEMOGLOBIN (BEAKER) (test jtqk=638) 10.6 g/dL 13.0-16.8 HEMATOCRIT (BEAKER) (test mpmv=029) 31.0 % 40.0-50.0 SODIUM NA-STAT [id number] 12:25:00 Test Item Value Reference Range Comments SODIUM (BEAKER) (test wcsr=170) 136 meq/L 135-148 POTASSIUM-STAT [id number] 12:25:00 Test Item Value Reference Range Comments POTASSIUM (BEAKER) (test adib=884) 4.4 meq/L 3.6-5.5 BLOOD GAS, [id number] 12:03:00 Test Item Value Reference Range Comments PH VENOUS (BEAKER) (test viwk=758) 7.41 7.32-7.42 PCO2 VENOUS (BEAKER) (test oreu=067) 39 mmHg 41-51 PO2 VENOUS (BEAKER) (test zpec=589) 43 mmHg 25-40 O2 SATURATION VENOUS (BEAKER) (test dryn=015) 91.8 % 40.0-70.0 HCO3 VENOUS (BEAKER) (test zbbo=775) 26 mmol/L 21-29 BASE EXCESS VENOUS (BEAKER) (test xrut=737) -0.6 mmol/L -2.0-3.0 PATIENT TEMPERATURE (BEAKER) (test ktvt=2149) 30.1 C FIO2 (BEAKER) (test wurl=8428) 65.0 % POTASSIUM-STAT [id number] 12:00:00 Test Item Value Reference Range Comments POTASSIUM (BEAKER) (test lkks=838) 4.7 meq/L 3.6-5.5 BLOOD GAS, [id number] 12:00:00 Test Item Value Reference Range Comments PH ARTERIAL (BEAKER) (test srwp=248) 7.45 7.35-7.45 PCO2 ARTERIAL (BEAKER) (test uhex=644) 34 mmHg 35-45 PO2 ARTERIAL (BEAKER) (test miko=845) 304 mmHg 80-90 O2 SATURATION ARTERIAL (BEAKER) (test bibs=821) 99.7 % 96.0-97.0 HCO3 ARTERIAL (BEAKER) (test vrsj=897) 25 mmol/L 21-29 BASE EXCESS ARTERIAL (BEAKER) (test pcju=357) -0.8 mmol/L -2.0-3.0 PATIENT TEMPERATURE (BEAKER) (test tisa=1042) 30.1 C FIO2 (BEAKER) (test diue=3093) 65.0 % GLUCOSE-STAT [id number] 12:00:00 Test Item Value Reference Range Comments GLUCOSE RANDOM (BEAKER) (test elnl=583) 140 mg/dL 70-110 HGB/HCT (H&H) - STAT [id number] 12:00:00 Test Item Value Reference Range Comments HEMOGLOBIN (BEAKER) (test qryo=071) 10.4 g/dL 13.0-16.8 HEMATOCRIT (BEAKER) (test bqpu=165) 31.0 % 40.0-50.0 SODIUM NA-STAT [id number] 12:00:00 Test Item Value Reference Range Comments SODIUM (BEAKER) (test ipvi=524) 131 meq/L 135-148 PLATELET AGGREGATION: FUNCTION [id number] 11:08:00 Test Item Value Reference Range Comments WEAK ADP RESULT(BEAKER) (test 76 % 60-91 rbwg=9511) PLATELET FUNCTION SCREEN 60-100% indicates normal INTERP (BEAKER) (test platelet function zgbh=5913) [id number] (BEAKER) Mari Phelan MD (electronic (test qmpx=2997) signature) PLATELET COUNT AGG (BEAKER) 222 K/CU MM 150-450 (test gppx=9488) for patients on clopidogrel in past two weeksHEMOGLOBIN [id number] 08:57:00 Test Item Value Reference Range Comments HEMOGLOBIN A1C (BEAKER) (test mxgr=434) 5.0 % 4.3-6.1 CBC W/PLT COUNT & AUTO [id number] 05:54:00 Test Item Value Reference Range Comments WHITE BLOOD CELL COUNT (BEAKER) (test frzc=240) 9.9 K/ L 3.5-10.5 RED BLOOD CELL COUNT (BEAKER) (test nknv=639) 4.14 M/ L 4.63-6.08 HEMOGLOBIN (BEAKER) (test tqqx=286) 13.4 GM/DL 13.7-17.5 HEMATOCRIT (BEAKER) (test anqe=971) 39.0 % 40.1-51.0 MEAN CORPUSCULAR VOLUME (BEAKER) (test dldi=150) 94.2 fL 79.0-92.2 MEAN CORPUSCULAR HEMOGLOBIN (BEAKER) (test 32.4 pg 25.7-32.2 eygi=329) MEAN CORPUSCULAR HEMOGLOBIN CONC (BEAKER) (test 34.4 GM/DL 32.3-36.5 srmi=329) RED CELL DISTRIBUTION WIDTH (BEAKER) (test 14.7 % 11.6-14.4 zhon=029) PLATELET COUNT (BEAKER) (test eiua=469) 224 K/CU MM 150-450 MEAN PLATELET VOLUME (BEAKER) (test phhq=283) 11.1 fL 9.4-12.4 NUCLEATED RED BLOOD CELLS (BEAKER) (test 0 /100 WBC 0-0 uzzo=093) NEUTROPHILS RELATIVE PERCENT (BEAKER) (test 72 % yokd=850) LYMPHOCYTES RELATIVE PERCENT (BEAKER) (test 15 % xcbk=294) MONOCYTES RELATIVE PERCENT (BEAKER) (test 11 % nvfv=753) EOSINOPHILS RELATIVE PERCENT (BEAKER) (test 1 % eatk=077) BASOPHILS RELATIVE PERCENT (BEAKER) (test 0 % scil=669) NEUTROPHILS ABSOLUTE COUNT (BEAKER) (test 7.13 K/ L 1.78-5.38 uicp=380) LYMPHOCYTES ABSOLUTE COUNT (BEAKER) (test 1.49 K/ L 1.32-3.57 vkzx=491) MONOCYTES ABSOLUTE COUNT (BEAKER) (test 1.13 K/ L 0.30-0.82 wyts=743) EOSINOPHILS ABSOLUTE COUNT (BEAKER) (test 0.07 K/ L 0.04-0.54 ztem=626) BASOPHILS ABSOLUTE COUNT (BEAKER) (test 0.02 K/ L 0.01-0.08 xmqa=243) IMMATURE GRANULOCYTES-RELATIVE PERCENT (BEAKER) 0 % 0-1 (test sjry=9367) [id number] 05:37:00 Test Item Value Reference Range Comments PARTIAL THROMBOPLASTIN TIME (BEAKER) (test 56.5 seconds 22.5-36.0 mwjw=060) BASIC METABOLIC [id number] 05:33:00 Test Item Value Reference Range Comments SODIUM (BEAKER) (test 141 meq/L 136-145 lata=003) POTASSIUM (BEAKER) (test 4.2 meq/L 3.5-5.1 hlbl=949) CHLORIDE (BEAKER) (test 104 meq/L 98-107 zirw=138) CO2 (BEAKER) (test 28 meq/L 22-29 xfmm=743) BLOOD UREA NITROGEN 10 mg/dL 7-21 (BEAKER) (test ykes=831) CREATININE (BEAKER) (test 0.69 mg/dL 0.57-1.25 wibk=479) GLUCOSE RANDOM (BEAKER) 127 mg/dL 70-105 (test udhp=793) CALCIUM (BEAKER) (test 9.3 mg/dL 8.4-10.2 qrcf=760) EGFR (BEAKER) (test 114 mL/min/1.73 sq m ESTIMATED GFR IS NOT xici=1997) ACCURATE CREATININE CLEARANCE IN PREDICTING GLOMERULAR FILTRATION RATE. ESTIMATED GFR IS NOT APPLICABLE FOR DIALYSIS PATIENTS. PROTHROMBIN [id number] 05:33:00 Test Item Value Reference Range Comments PROTIME (BEAKER) (test luun=932) 13.3 seconds 11.7-14.7 INR (BEAKER) (test zffh=000) 1.0 <=5.9 RECOMMENDED COUMADIN/WARFARIN INR THERAPY RANGESSTANDARD DOSE: 2.0 - 3.0 Includes: PROPHYLAXIS forvenous thrombosis, systemic embolization; TREATMENT for venous thrombosis and/or pulmonary embolus.HIGH RISK: Target INR is 2.5-3.5 for patients with mechanical heart valves.[id number] 19:22:00 Test Item Value Reference Range Comments PARTIAL THROMBOPLASTIN TIME (BEAKER) (test 37.4 seconds 22.5-36.0 tbbi=816) PROTHROMBIN TIME/[id number] 19:21:00 Test Item Value Reference Range Comments PROTIME (BEAKER) (test uzkc=401) 12.8 seconds 11.7-14.7 INR (BEAKER) (test ncgs=519) 1.0 <=5.9 RECOMMENDED COUMADIN/WARFARIN INR THERAPY RANGESSTANDARD DOSE: 2.0 - 3.0 Includes: PROPHYLAXIS forvenous thrombosis, systemic embolization; TREATMENT for venous thrombosis and/or pulmonary embolus.HIGH RISK: Target INR is 2.5-3.5 for patients with mechanical heart valves.[id number] 11:49:00 Test Item Value Reference Range Comments PARTIAL THROMBOPLASTIN TIME (BEAKER) (test 34.7 seconds 22.5-36.0 poku=786) Prior to initiating heparinPLATELET [id number] 11:31:00 Test Item Value Reference Range Comments PLATELET COUNT (BEAKER) (test bfsq=074) 199 K/CU MM 150-450 PLATELET AGGREGATION: FUNCTION [id number] 11:12:00 Test Item Value Reference Range Comments WEAK ADP RESULT(BEAKER) (test 90 % 60-91 dtld=5243) PLATELET FUNCTION SCREEN 60-100% indicates normal INTERP (BEAKER) (test platelet function upgy=9213) [id number] ([facility]) Mari Phelan MD (electronic (test easn=8279) signature) PLATELET COUNT AGG (BEAKER) 200 K/CU MM 150-450 (test gixr=0951) HEMOGLOBIN [id number] 08:38:00 Test Item Value Reference Range Comments HEMOGLOBIN A1C (BEAKER) (test iejp=494) 5.5 % 4.3-6.1 TROPONIN [id number] 08:35:00 Test Item Value Reference Range Comments TROPONIN I (ARAMISAKER) (test uymv=320) 0.40 ng/mL 0.00-0.03 Effective 03/02/2014: Reference Range [...] and persistent tachyarrhythmia.CREATINE KINASE (CK), TOTAL AND [id number] 08:27:00 Test Item Value Reference Range Comments CREATINE KINASE TOTAL (ARAMISAKER) (test kivr=092) 39 U/L 29-200 CREATINE KINASE-MB (BEAKER) (test olfq=491) 1.6 ng/mL 0.0-6.6 CREATINE KINASE-MB INDEX (BEAKER) (test fpks=042) 4.1 % Effective 03/02/2014: CK-MB Reference Range ChangeNew: 0.0-6.6 Previous: 0.0- 4.9CK-MB Reference Range:<6.7 Normal6.7-10.0 Borderline>10.0 AbnormalPOCT-GLUCOSE [id number] 08:23:00 Test Item Value Reference Range Comments POC-GLUCOSE METER (ARAMISUsTrendy) 104 mg/dL 70-110 TESTED AT [address] (test gufr=4662) [place] [address] PROTHROMBIN TIME/[id number] 04:32:00 Test Item Value Reference Range Comments PROTIME (BEAKER) (test eayb=188) 13.5 seconds 11.7-14.7 INR (BEAKER) (test ofbt=206) 1.0 <=5.9 RECOMMENDED COUMADIN/WARFARIN INR THERAPY RANGESSTANDARD DOSE: 2.0 - 3.0 Includes: PROPHYLAXIS forvenous thrombosis, systemic embolization; TREATMENT for venous thrombosis and/or pulmonary embolus.HIGH RISK: Target INR is 2.5-3.5 for patients with mechanical heart valves.[id number] 02:13:00 Test Item Value Reference Range Comments PHOSPHORUS (BEAKER) (test zbpf=145) 3.9 mg/dL 2.3-4.7 [id number] 02:13:00 Test Item Value Reference Range Comments MAGNESIUM (BEAKER) (test mxnt=049) 2.1 mg/dL 1.6-2.6 BASIC METABOLIC [id number] 02:13:00 Test Item Value Reference Range Comments SODIUM (BEAKER) (test 141 meq/L 136-145 lthw=220) POTASSIUM (BEAKER) (test 4.3 meq/L 3.5-5.1 bfhh=091) CHLORIDE (BEAKER) (test 104 meq/L 98-107 loqb=409) CO2 (BEAKER) (test 28 meq/L 22-29 sggw=153) BLOOD UREA NITROGEN 8 mg/dL 7-21 (BEAKER) (test bucs=420) CREATININE (BEAKER) (test 0.67 mg/dL 0.57-1.25 rgfk=508) GLUCOSE RANDOM (BEAKER) 98 mg/dL 70-105 (test jyud=136) CALCIUM (BEAKER) (test 9.2 mg/dL 8.4-10.2 vfsh=674) EGFR (BEAKER) (test 118 mL/min/1.73 sq m ESTIMATED GFR IS NOT evza=6249) ACCURATE CREATININE CLEARANCE IN PREDICTING GLOMERULAR FILTRATION RATE. ESTIMATED GFR IS NOT APPLICABLE FOR DIALYSIS PATIENTS. CBC W/PLT COUNT & AUTO [id number] 01:44:00 Test Item Value Reference Range Comments WHITE BLOOD CELL COUNT (BEAKER) (test ynkc=298) 8.1 K/ L 3.5-10.5 RED BLOOD CELL COUNT (BEAKER) (test jvjs=903) 3.92 M/ L 4.63-6.08 HEMOGLOBIN (BEAKER) (test vyxz=400) 12.6 GM/DL 13.7-17.5 HEMATOCRIT (BEAKER) (test moqa=266) 37.3 % 40.1-51.0 MEAN CORPUSCULAR VOLUME (BEAKER) (test qizc=494) 95.2 fL 79.0-92.2 MEAN CORPUSCULAR HEMOGLOBIN (BEAKER) (test 32.1 pg 25.7-32.2 iamn=716) MEAN CORPUSCULAR HEMOGLOBIN CONC (BEAKER) (test 33.8 GM/DL 32.3-36.5 jlmb=334) RED CELL DISTRIBUTION WIDTH (BEAKER) (test 15.2 % 11.6-14.4 pual=170) PLATELET COUNT (BEAKER) (test fzpr=798) 207 K/CU MM 150-450 MEAN PLATELET VOLUME (BEAKER) (test bkjk=027) 10.8 fL 9.4-12.4 NUCLEATED RED BLOOD CELLS (BEAKER) (test 0 /100 WBC 0-0 zgmm=130) NEUTROPHILS RELATIVE PERCENT (BEAKER) (test 51 % uoku=015) LYMPHOCYTES RELATIVE PERCENT (BEAKER) (test 30 % wquk=807) MONOCYTES RELATIVE PERCENT (BEAKER) (test 17 % tcbn=808) EOSINOPHILS RELATIVE PERCENT (BEAKER) (test 2 % icpm=256) BASOPHILS RELATIVE PERCENT (BEAKER) (test 0 % ptgv=740) NEUTROPHILS ABSOLUTE COUNT (BEAKER) (test 4.09 K/ L 1.78-5.38 mzmc=969) LYMPHOCYTES ABSOLUTE COUNT (BEAKER) (test 2.38 K/ L 1.32-3.57 fyje=425) MONOCYTES ABSOLUTE COUNT (BEAKER) (test 1.34 K/ L 0.30-0.82 odyy=965) EOSINOPHILS ABSOLUTE COUNT (BEAKER) (test 0.19 K/ L 0.04-0.54 gzsl=712) BASOPHILS ABSOLUTE COUNT (BEAKER) (test 0.03 K/ L 0.01-0.08 grob=393) IMMATURE GRANULOCYTES-RELATIVE PERCENT (BEAKER) 0 % 0-1 (test gpuc=5520) [id number] 01:31:00 Test Item Value Reference Range Comments PROTIME (BEAKER) (test fske=808) 13.1 seconds 11.7-14.7 INR (BEAKER) (test iwci=498) 1.0 <=5.9 PARTIAL THROMBOPLASTIN TIME (BEAKER) (test 35.3 seconds 22.5-36.0 opke=480) RECOMMENDED COUMADIN/WARFARIN INR THERAPY RANGESSTANDARD DOSE: 2.0 - 3.0 Includes: PROPHYLAXIS forvenous thrombosis, systemic embolization; TREATMENT for venous thrombosis and/or pulmonary embolus.HIGH RISK: Target INR is 2.5-3.5 for patients with mechanical heart valves.TROPONIN [id number] 00:46:00 Test Item Value Reference Range Comments TROPONIN I (BEAKER) (test glbf=078) 0.51 ng/mL 0.00-0.03 Effective 03/02/2014: Reference Range [...] and persistent tachyarrhythmia.CREATINE KINASE (CK), TOTAL AND [id number] 00:34:00 Test Item Value Reference Range Comments CREATINE KINASE TOTAL (BEAKER) (test veve=592) 44 U/L 29-200 CREATINE KINASE-MB (BEAKER) (test nsvz=600) 2.1 ng/mL 0.0-6.6 CREATINE KINASE-MB INDEX (BEAKER) (test derq=049) 4.8 % Effective 03/02/2014: CK-MB Reference Range ChangeNew: 0.0-6.6 Previous: 0.0- 4.9CK-MB Reference Range:<6.7 Normal6.7-10.0 Borderline>10.0 [id number] 06:58:00 Test Item Value Reference Range Comments PHOSPHORUS (BEAKER) (test nlpi=001) 3.7 mg/dL 2.3-4.7 [id number] 06:58:00 Test Item Value Reference Range Comments MAGNESIUM (BEAKER) (test tzwh=188) 1.9 mg/dL 1.6-2.6 BASIC METABOLIC [id number] 06:58:00 Test Item Value Reference Range Comments SODIUM (BEAKER) (test 139 meq/L 136-145 okcu=719) POTASSIUM (BEAKER) (test 4.1 meq/L 3.5-5.1 uhss=280) CHLORIDE (BEAKER) (test 106 meq/L 98-107 rbul=390) CO2 (BEAKER) (test 24 meq/L 22-29 ljcd=901) BLOOD UREA NITROGEN 12 mg/dL 7-21 (BEAKER) (test pfnt=198) CREATININE (BEAKER) (test 0.67 mg/dL 0.57-1.25 dwcg=047) GLUCOSE RANDOM (BEAKER) 82 mg/dL 70-105 (test cpwj=019) CALCIUM (BEAKER) (test 8.7 mg/dL 8.4-10.2 vxep=039) EGFR (BEAKER) (test 118 mL/min/1.73 sq m ESTIMATED GFR IS NOT jjlz=2689) ACCURATE CREATININE CLEARANCE IN PREDICTING GLOMERULAR FILTRATION RATE. ESTIMATED GFR IS NOT APPLICABLE FOR DIALYSIS PATIENTS. [id number] 06:36:00 Test Item Value Reference Range Comments PHOSPHORUS (BEAKER) (test eukz=846) 4.1 mg/dL 2.3-4.7 [id number] 06:36:00 Test Item Value Reference Range Comments MAGNESIUM (BEAKER) (test eflu=814) 2.0 mg/dL 1.6-2.6 BASIC METABOLIC [id number] 06:36:00 Test Item Value Reference Range Comments SODIUM (BEAKER) (test 140 meq/L 136-145 tzbn=981) POTASSIUM (BEAKER) (test 4.3 meq/L 3.5-5.1 myst=827) CHLORIDE (BEAKER) (test 107 meq/L 98-107 nchy=997) CO2 (BEAKER) (test 24 meq/L 22-29 awsv=956) BLOOD UREA NITROGEN 10 mg/dL 7-21 (BEAKER) (test tqsk=861) CREATININE (BEAKER) (test 0.64 mg/dL 0.57-1.25 cpel=817) GLUCOSE RANDOM (BEAKER) 78 mg/dL 70-105 (test crsn=838) CALCIUM (BEAKER) (test 9.1 mg/dL 8.4-10.2 rtac=121) EGFR (BEAKER) (test 125 mL/min/1.73 sq m ESTIMATED GFR IS NOT dhpo=9872) ACCURATE CREATININE CLEARANCE IN PREDICTING GLOMERULAR FILTRATION RATE. ESTIMATED GFR IS NOT APPLICABLE FOR DIALYSIS PATIENTS. [id number] 15:50:00 Test Item Value Reference Range Comments RPR SCREEN (BEAKER) (test dhmy=784) Nonreactive Nonreactive HEMOGLOBIN [id number] 10:29:00 Test Item Value Reference Range Comments HEMOGLOBIN A1C (BEAKER) (test sjuh=273) 5.4 % 4.3-6.1 VITAMIN B12 AND [id number] 09:21:00 Test Item Value Reference Range Comments VITAMIN B12 (BEAKER) (test jwqh=045) 335 pg/mL 213-816 FOLATE (BEAKER) (test gcao=601) 36.6 ng/mL >=7.0 Effective 03/02/2014: Folate Reference Range ChangeNew: >=7.0 Previous: & gt;=5.4CBC W/PLT COUNT & AUTO [id number] 08:15:00 Test Item Value Reference Range Comments WHITE BLOOD CELL COUNT (BEAKER) (test ryex=585) 7.2 K/ L 4.0-10.0 RED BLOOD CELL COUNT (BEAKER) (test exws=638) 4.30 M/ L 4.20-5.80 HEMOGLOBIN (BEAKER) (test ergm=382) 14.0 GM/DL 13.0-16.8 HEMATOCRIT (BEAKER) (test ovcx=751) 42.7 % 40.0-50.0 MEAN CORPUSCULAR VOLUME (BEAKER) (test fyzl=128) 99.3 fL 82.0-98.0 MEAN CORPUSCULAR HEMOGLOBIN (BEAKER) (test 32.6 pg 27.0-33.0 fxfh=563) MEAN CORPUSCULAR HEMOGLOBIN CONC (BEAKER) (test 32.9 GM/DL 32.0-36.0 xevu=580) RED CELL DISTRIBUTION WIDTH (BEAKER) (test 15.3 % 10.3-14.2 lfeu=956) PLATELET COUNT (BEAKER) (test vymk=339) 217 K/CU MM 150-430 MEAN PLATELET VOLUME (BEAKER) (test xhix=723) 8.2 fL 6.5-10.5 NUCLEATED RED BLOOD CELLS (BEAKER) (test 0 /100 WBC 0-0 xcqv=227) NEUTROPHILS RELATIVE PERCENT (BEAKER) (test 48 % lcqj=363) LYMPHOCYTES RELATIVE PERCENT (BEAKER) (test 38 % kklq=606) MONOCYTES RELATIVE PERCENT (BEAKER) (test 12 % xerd=772) EOSINOPHILS RELATIVE PERCENT (BEAKER) (test 2 % mxqx=737) BASOPHILS RELATIVE PERCENT (BEAKER) (test 1 % cnim=984) NEUTROPHILS ABSOLUTE COUNT (BEAKER) (test 3.42 K/ L 1.80-8.00 aorf=975) LYMPHOCYTES ABSOLUTE COUNT (BEAKER) (test 2.70 K/ L 1.48-4.50 oodh=915) MONOCYTES ABSOLUTE COUNT (BEAKER) (test 0.82 K/ L 0.00-1.30 tbpc=059) EOSINOPHILS ABSOLUTE COUNT (BEAKER) (test 0.17 K/ L 0.00-0.50 twsp=747) BASOPHILS ABSOLUTE COUNT (BEAKER) (test 0.05 K/ L 0.00-0.20 ahlc=190) 0.00TSH/FREE T4 IF [id number] 08:00:00 Test Item Value Reference Range Comments THYROID STIMULATING HORMONE (BEAKER) (test 1.39 uIU/mL 0.35-4.94 tlxz=564) BASIC METABOLIC [id number] 07:26:00 Test Item Value Reference Range Comments SODIUM (BEAKER) (test 140 meq/L 136-145 vtfd=952) POTASSIUM (BEAKER) (test 4.4 meq/L 3.5-5.1 Specimen slightly gdbf=461) hemolyzed CHLORIDE (BEAKER) (test 110 meq/L 98-107 detu=948) CO2 (BEAKER) (test 21 meq/L 22-29 xgkx=197) BLOOD UREA NITROGEN 8 mg/dL 7-21 (BEAKER) (test lpag=341) CREATININE (BEAKER) 0.65 mg/dL 0.57-1.25 Specimen slightly (test ygjp=702) hemolyzed GLUCOSE RANDOM (BEAKER) 85 mg/dL 70-105 (test wpot=204) CALCIUM (BEAKER) (test 9.0 mg/dL 8.4-10.2 oaub=307) EGFR (BEAKER) (test 123 mL/min/1.73 sq INSUFFICIENT CLINICAL DATA qucw=5000) m TO CALCULATE ESTIMATED GFR. LIPID [id number] 07:26:00 Test Item Value Reference Range Comments TRIGLYCERIDES (BEAKER) (test 102 mg/dL Specimen slightly hemolyzed fpfe=360) CHOLESTEROL (BEAKER) (test 181 mg/dL Specimen slightly hemolyzed gqki=948) HDL CHOLESTEROL (BEAKER) (test 30 mg/dL zwne=375) LDL CHOLESTEROL CALCULATED 131 mg/dL (BEAKER) (test fhwj=148) Triglyceride Reference Range: Low Risk <150 Borderline 150- 199 High Risk 200-499 Very High Risk >=500Cholesterol Reference Range: Low Risk <200 Borderline 200-239 High Risk > 240HDL Cholesterol Reference Range: Low Risk >=60 High Risk <40LDL Cholesterol Reference Range: Optimal <100 Near Optimal 100-129 Borderline 130-159 High 160-189 Very High >=[id number] 07:25:00 Test Item Value Reference Range Comments PHOSPHORUS (BEAKER) (test pkzs=885) 3.8 mg/dL 2.3-4.7 [id number] 07:25:00 Test Item Value Reference Range Comments MAGNESIUM (BEAKER) (test vcoj=332) 2.0 mg/dL 1.6-2.6 URINALYSIS W/ [id number] 19:16:00 Test Item Value Reference Range Comments COLOR (BEAKER) (test rtya=468) Light Yellow CLARITY (BEAKER) (test jijb=336) Clear SPECIFIC GRAVITY UA (BEAKER) (test cjgd=272) 1.007 1.001-1.035 PH UA (BEAKER) (test gmvq=904) 6.5 5.0-8.0 PROTEIN UA (BEAKER) (test pebz=642) Negative Negative GLUCOSE UA (BEAKER) (test lxud=919) Negative Negative KETONES UA (BEAKER) (test eaof=970) Negative Negative BILIRUBIN UA (BEAKER) (test ipbt=443) Negative Negative BLOOD UA (BEAKER) (test xgyq=306) Negative Negative NITRITE UA (BEAKER) (test xyvh=402) Negative Negative LEUKOCYTE ESTERASE UA (BEAKER) (test shyf=579) Negative Negative UROBILINOGEN UA (BEAKER) (test iimm=366) 0.2 mg/dL 0.2-1.0 RBC UA (BEAKER) (test wpmm=395) 1 /HPF WBC UA (BEAKER) (test tomj=412) < /HPF SOURCE(BEAKER) (test ydkv=8065) Urine, Voided BLOOD [id number] 11:00:00 Test Item Value Reference Range Comments CULTURE (BEAKER) (test myvk=9071) No growth in 5 days BLOOD [id number] 11:00:00 Test Item Value Reference Range Comments CULTURE (BEAKER) (test bnje=6885) No growth in 5 days BASIC METABOLIC [id number] 05:33:00 Test Item Value Reference Range Comments SODIUM (BEAKER) (test 137 meq/L 136-145 ssld=537) POTASSIUM (BEAKER) (test 4.6 meq/L 3.5-5.1 lwkb=646) CHLORIDE (BEAKER) (test 104 meq/L 98-107 ojej=505) CO2 (BEAKER) (test 22 meq/L 22-29 rmzq=614) BLOOD UREA NITROGEN 4 mg/dL 7-21 (BEAKER) (test dtke=328) CREATININE (BEAKER) 0.61 mg/dL 0.57-1.25 (test yedy=209) GLUCOSE RANDOM (BEAKER) 84 mg/dL 70-105 (test dmxh=479) CALCIUM (BEAKER) (test 9.1 mg/dL 8.4-10.2 psrx=672) EGFR (BEAKER) (test 132 mL/min/1.73 sq INSUFFICIENT CLINICAL DATA yodt=3725) m TO CALCULATE ESTIMATED GFR. CBC W/PLT COUNT & AUTO [id number] 05:04:00 Test Item Value Reference Range Comments WHITE BLOOD CELL COUNT (BEAKER) (test cczy=121) 9.4 K/ L 4.0-10.0 RED BLOOD CELL COUNT (BEAKER) (test bkce=564) 4.10 M/ L 4.20-5.80 HEMOGLOBIN (BEAKER) (test vdqe=732) 13.8 GM/DL 13.0-16.8 HEMATOCRIT (BEAKER) (test dckl=207) 40.7 % 40.0-50.0 MEAN CORPUSCULAR VOLUME (BEAKER) (test eirp=505) 99.3 fL 82.0-98.0 MEAN CORPUSCULAR HEMOGLOBIN (BEAKER) (test 33.7 pg 27.0-33.0 cdqx=486) MEAN CORPUSCULAR HEMOGLOBIN CONC (BEAKER) (test 33.9 GM/DL 32.0-36.0 fqgx=920) RED CELL DISTRIBUTION WIDTH (BEAKER) (test 13.7 % 10.3-14.2 rebd=343) PLATELET COUNT (BEAKER) (test xzut=580) 224 K/CU MM 150-430 MEAN PLATELET VOLUME (BEAKER) (test qpvi=355) 7.4 fL 6.5-10.5 NUCLEATED RED BLOOD CELLS (BEAKER) (test 0 /100 WBC 0-0 doar=326) NEUTROPHILS RELATIVE PERCENT (BEAKER) (test 69 % crfo=911) LYMPHOCYTES RELATIVE PERCENT (BEAKER) (test 18 % mxnc=195) MONOCYTES RELATIVE PERCENT (BEAKER) (test 12 % dfgz=719) EOSINOPHILS RELATIVE PERCENT (BEAKER) (test 1 % ewfk=817) BASOPHILS RELATIVE PERCENT (BEAKER) (test 0 % ttpc=759) NEUTROPHILS ABSOLUTE COUNT (BEAKER) (test 6.44 K/ L 1.80-8.00 lfjm=570) LYMPHOCYTES ABSOLUTE COUNT (BEAKER) (test 1.69 K/ L 1.48-4.50 dtdb=498) MONOCYTES ABSOLUTE COUNT (BEAKER) (test 1.16 K/ L 0.00-1.30 vntq=589) EOSINOPHILS ABSOLUTE COUNT (BEAKER) (test 0.05 K/ L 0.00-0.50 rnrt=590) BASOPHILS ABSOLUTE COUNT (BEAKER) (test 0.04 K/ L 0.00-0.20 kzdg=669) 0.00VANCOMYCIN LEVEL, [id number] 21:36:00 Test Item Value Reference Range Comments VANCOMYCIN TROUGH (BEAKER) (test nijp=386) 9.5 ug/mL 10.0-20.0 Please draw prior to 4th vancomycin doseVITAMIN B12 AND [id number] 04:33: 00 Test Item Value Reference Range Comments VITAMIN B12 (BEAKER) (test lgyb=571) 599 pg/mL 213-816 FOLATE (BEAKER) (test hmat=985) 7.7 ng/mL >=7.0 Effective 03/02/2014: Folate Reference Range ChangeNew: >=7.0 Previous: & gt;=5.4HEPATIC FUNCTION [id number] 03:58:00 Test Item Value Reference Range Comments TOTAL PROTEIN (BEAKER) (test zjny=561) 6.7 gm/dL 6.0-8.3 ALBUMIN (BEAKER) (test xeqv=4502) 3.3 g/dL 3.5-5.0 BILIRUBIN TOTAL (BEAKER) (test kvtx=821) 0.4 mg/dL 0.2-1.2 BILIRUBIN DIRECT (BEAKER) (test glqk=070) 0.2 mg/dL 0.1-0.5 ALKALINE PHOSPHATASE (BEAKER) (test xjzs=949) 67 U/L 40-150 AST (SGOT) (BEAKER) (test uets=150) 10 U/L 5-34 ALT (SGPT) (BEAKER) (test zmcr=132) 12 U/L 6-55 BASIC METABOLIC [id number] 03:58:00 Test Item Value Reference Range Comments SODIUM (BEAKER) (test 139 meq/L 136-145 qpwm=724) POTASSIUM (BEAKER) (test 4.0 meq/L 3.5-5.1 fpjm=260) CHLORIDE (BEAKER) (test 103 meq/L 98-107 bfcx=835) CO2 (BEAKER) (test 24 meq/L 22-29 qqrp=717) BLOOD UREA NITROGEN 7 mg/dL 7-21 (BEAKER) (test rcgz=785) CREATININE (BEAKER) 0.58 mg/dL 0.57-1.25 (test eocs=690) GLUCOSE RANDOM (BEAKER) 87 mg/dL 70-105 (test phjn=664) CALCIUM (BEAKER) (test 9.3 mg/dL 8.4-10.2 usfe=918) EGFR (BEAKER) (test 140 mL/min/1.73 sq INSUFFICIENT CLINICAL DATA mjij=2991) m TO CALCULATE ESTIMATED GFR. CBC W/PLT COUNT & AUTO [id number] 03:45:00 Test Item Value Reference Range Comments WHITE BLOOD CELL COUNT (BEAKER) (test vfim=969) 7.5 K/ L 4.0-10.0 RED BLOOD CELL COUNT (BEAKER) (test tmbr=057) 3.88 M/ L 4.20-5.80 HEMOGLOBIN (BEAKER) (test cgiw=569) 13.5 GM/DL 13.0-16.8 HEMATOCRIT (BEAKER) (test zjpp=945) 38.4 % 40.0-50.0 MEAN CORPUSCULAR VOLUME (BEAKER) (test rfbg=533) 99.0 fL 82.0-98.0 MEAN CORPUSCULAR HEMOGLOBIN (BEAKER) (test 34.8 pg 27.0-33.0 fels=523) MEAN CORPUSCULAR HEMOGLOBIN CONC (BEAKER) (test 35.1 GM/DL 32.0-36.0 rryh=093) RED CELL DISTRIBUTION WIDTH (BEAKER) (test 13.1 % 10.3-14.2 qqmn=369) PLATELET COUNT (BEAKER) (test djjq=821) 204 K/CU MM 150-430 MEAN PLATELET VOLUME (BEAKER) (test gizs=817) 7.7 fL 6.5-10.5 NUCLEATED RED BLOOD CELLS (BEAKER) (test 0 /100 WBC 0-0 kdut=639) NEUTROPHILS RELATIVE PERCENT (BEAKER) (test 54 % qptt=858) LYMPHOCYTES RELATIVE PERCENT (BEAKER) (test 30 % uqxh=687) MONOCYTES RELATIVE PERCENT (BEAKER) (test 14 % vflo=510) EOSINOPHILS RELATIVE PERCENT (BEAKER) (test 2 % twqp=897) BASOPHILS RELATIVE PERCENT (BEAKER) (test 0 % wkrb=817) NEUTROPHILS ABSOLUTE COUNT (BEAKER) (test 4.09 K/ L 1.80-8.00 jpcm=099) LYMPHOCYTES ABSOLUTE COUNT (BEAKER) (test 2.23 K/ L 1.48-4.50 fhas=023) MONOCYTES ABSOLUTE COUNT (BEAKER) (test 1.05 K/ L 0.00-1.30 uioh=982) EOSINOPHILS ABSOLUTE COUNT (BEAKER) (test 0.13 K/ L 0.00-0.50 oiiw=385) BASOPHILS ABSOLUTE COUNT (BEAKER) (test 0.03 K/ L 0.00-0.20 azrm=210) [id number] 03:18:00 Test Item Value Reference Range Comments PARTIAL THROMBOPLASTIN TIME (BEAKER) (test 42.6 seconds 22.5-36.0 nlwt=226) PROTHROMBIN TIME/[id number] 03:17:00 Test Item Value Reference Range Comments PROTIME (BEAKER) (test xtmw=474) 13.0 seconds 11.7-14.7 INR (BEAKER) (test xayv=439) 1.0 <=5.9 RECOMMENDED COUMADIN/WARFARIN INR THERAPY RANGESSTANDARD DOSE: 2.0 - 3.0 Includes: PROPHYLAXIS forvenous thrombosis, systemic embolization; TREATMENT for venous thrombosis and/or pulmonary embolus.HIGH RISK: Target INR is 2.5-3.5 for patients with mechanical heart valves.BASIC METABOLIC [id number] 02:48: 00 Test Item Value Reference Range Comments SODIUM (BEAKER) (test 136 meq/L 136-145 xxwe=231) POTASSIUM (BEAKER) (test 4.2 meq/L 3.5-5.1 damu=878) CHLORIDE (BEAKER) (test 101 meq/L 98-107 mcfy=478) CO2 (BEAKER) (test 22 meq/L 22-29 voze=558) BLOOD UREA NITROGEN 7 mg/dL 7-21 (BEAKER) (test amsr=608) CREATININE (BEAKER) 0.66 mg/dL 0.57-1.25 (test wxui=719) GLUCOSE RANDOM (BEAKER) 86 mg/dL 70-105 (test vmjc=064) CALCIUM (BEAKER) (test 10.1 mg/dL 8.4-10.2 nowj=550) EGFR (BEAKER) (test 120 mL/min/1.73 sq INSUFFICIENT CLINICAL DATA yibp=1547) m TO CALCULATE ESTIMATED GFR. CBC W/PLT COUNT & AUTO [id number] 02:47:00 Test Item Value Reference Range Comments WHITE BLOOD CELL COUNT (BEAKER) (test iudq=731) 13.9 K/ L 4.0-10.0 RED BLOOD CELL COUNT (BEAKER) (test cdvh=230) 4.54 M/ L 4.20-5.80 HEMOGLOBIN (BEAKER) (test evwp=255) 15.2 GM/DL 13.0-16.8 HEMATOCRIT (BEAKER) (test obby=971) 45.1 % 40.0-50.0 MEAN CORPUSCULAR VOLUME (BEAKER) (test nzmy=440) 99.4 fL 82.0-98.0 MEAN CORPUSCULAR HEMOGLOBIN (BEAKER) (test 33.4 pg 27.0-33.0 nhwn=684) MEAN CORPUSCULAR HEMOGLOBIN CONC (BEAKER) (test 33.6 GM/DL 32.0-36.0 fneg=499) RED CELL DISTRIBUTION WIDTH (BEAKER) (test 13.2 % 10.3-14.2 pyza=679) PLATELET COUNT (BEAKER) (test dyva=477) 230 K/CU MM 150-430 MEAN PLATELET VOLUME (BEAKER) (test iyuy=056) 8.1 fL 6.5-10.5 NUCLEATED RED BLOOD CELLS (BEAKER) (test 0 /100 WBC 0-0 iofb=056) NEUTROPHILS RELATIVE PERCENT (BEAKER) (test 71 % qoti=370) LYMPHOCYTES RELATIVE PERCENT (BEAKER) (test 16 % iizw=124) MONOCYTES RELATIVE PERCENT (BEAKER) (test 12 % arfs=664) EOSINOPHILS RELATIVE PERCENT (BEAKER) (test 0 % qdck=566) BASOPHILS RELATIVE PERCENT (BEAKER) (test 0 % dtql=920) NEUTROPHILS ABSOLUTE COUNT (BEAKER) (test 9.86 K/ L 1.80-8.00 crcj=130) LYMPHOCYTES ABSOLUTE COUNT (BEAKER) (test 2.22 K/ L 1.48-4.50 blia=222) MONOCYTES ABSOLUTE COUNT (BEAKER) (test 1.72 K/ L 0.00-1.30 buje=965) EOSINOPHILS ABSOLUTE COUNT (BEAKER) (test 0.04 K/ L 0.00-0.50 okxt=893) BASOPHILS ABSOLUTE COUNT (BEAKER) (test 0.02 K/ L 0.00-0.20 qczy=223) 0.00
--- NOTE | 2019-03-20 11:27 | RAD REPORT ---
EXAM DESCRIPTION: RAD - Chest Single View - 03/20/2019 11:12 am CLINICAL HISTORY: Chest pain;Abdominal distention Chest pain. COMPARISON: Chest Single View dated 10/20/2018; Chest Single View dated 03/02/2018; Chest Pa And Lat ( 2 Views) dated 05/06/2017; Chest Single View dated 05/03/2017 FINDINGS: Portable technique limits examination quality. Emphysematous changes are present throughout the lungs with small calcified granulomas in both lung b ases. The heart is mildly prominent size with changes of a prior CABG. No displaced fractures.
[2019-03-20 11:46] LABS: Absolute Lymphocytes (CBC) 1.9 K/uL (0.7-4.9); Basophils % 0.5 % (0-1.3); Hematocrit 40.4 % (39.6-49.0); Lymphocytes % 30.1 % (15.3-44.8); MPV 9.4 fL (7.6-11.3); Protime INR 1.06; RBC Red Blood Cell Count 4.14 M/uL (4.33-5.43)
[2019-03-20] MEDS ORDERED: NA CHLORIDE 0.9% 1,000 ML ONE (11:50)
[2019-03-20] MEDS ORDERED: ONDANSETRON 4 MG/2 ML VIAL ONE (11:50)
[2019-03-20] MEDS ORDERED: LIDOCAINE VISCOUS 2% SOLN 15 ML UDC ONE (11:50)
[2019-03-20] MEDS ORDERED: FAMOTIDINE 20 MG/2 ML VIAL IV ONE (11:50)
[2019-03-20] MEDS ORDERED: MAGNE/ALUM HYDROXD 30 ML UCUP ONE (11:50)
[2019-03-20 11:58] LABS: ALT/SGPT 11 U/L (12-78); AST/SGOT 7 U/L (15-37); Albumin 3.2 g/dL (3.4-5.0); Alkaline Phosphatase 72 U/L (45-117); BUN Blood Urea Nitrogen 11 mg/dL (7-18); Bicarbonate 27 mmol/L (21-32); Bilirubin Direct 0.1 mg/dL (0-0.2); Bilirubin Total 0.5 mg/dL (0.2-1.0); Glucose Level 90 mg/dL (74-106); Magnesium 2.3 mg/dL (1.8-2.4); NT PRO-BNP 197 pg/mL (<125); Protein, Total 7.3 g/dL (6.4-8.2); Sodium Level 140 mmol/L (136-145); Troponin (Emerg Dept Use Only) < 0.02 ng/mL (0.0-0.045)
--- NOTE | 2019-03-20 12:41 | RAD REPORT ---
EXAM DESCRIPTION: CT - Chest Abdomen Pelvis W Cont - 03/20/2019 12:21 pm CLINICAL HISTORY: Chest pain, abdominal pain, abdominal distention COMPARISON: Noncontrast CT abdomen and pelvis January 25, 2019, CT chest abdomen and pelvis July 02 TECHNIQUE: Following dynamic enhancement using 100 milliliters nonionic IV contrast, axial imaging o f the chest, abdomen and pelvis was performed. Biphasic technique was utilized through the abdomen. Oral contrast was administered. All CT scans are performed using dose optimization technique as appropriate and may include automated exposure control or mA/KV adjustment according to patient size. FINDINGS: No infiltrate and no suspicious mass. Patient has several fully calcified granulomas in th e lung parenchyma. The No pleural effusion, pleural thickening or pneumothorax. No significant aortic or pulmonary arterial tree finding. Mediastinal and hilar regions show no mass or abnormal lymphaden opathy. No chest wall mass or axillary lymphadenopathy. CABG surgical changes are noted. The liver, spleen and pancreas show no suspicious findings. No acute gallbladder finding. Biliary juanis e is similar to comparison. Gallstones can be occult on CT imaging. Symmetric renal function is seen with no mass or hydronephrosis. No adrenal abnormalities. No dilated bowel loops or focal bowel wall thickening. No acute GI findings seen. No free air, free f luid or inflammatory stranding. No hernia, mass or bulky lymphadenopathy. No acute or destructive bone process. Postsurgical changes are present the L4-5 disc space. Dense vascular calcifications are present. Aorta is mildly prominent but stable. No displaced calcifi cations. IMPRESSION: CT chest imaging shows emphysema change in scattered fully calcified granulomas. No acut e chest finding. CT abdomen and pelvis imaging also without acute finding. No clear change from comparison.
--- NOTE | 2019-03-20 15:33 | EKG ---
Test Date: 2019-03-20 Test Time: 10:54:45 Brick Siding Applicator: NICOLE MEASUREMENT RESULTS: Intervals: Rate: 63 ND: 172 QRSD: 96 QT: 388 QTc: 397 [place]: P: 93 ND: 172 QRS: -22 T: 27 INTERPRETIVE STATEMENTS: Normal sinus rhythm Normal ECG Compared to ECG 10/20/2018 03:20:58 Sinus bradycardia no longer present Electronically Signed On 03-20-19 15:32:54 WEBSITE PROJECT MANAGER by Yasir Collins
--- NOTE | 2019-03-20 16:38 | ER ---
Nurse's Notes [facility] Name: Bryan Graf Age: 68 yrs Sex: Male : 1950 Arrival Date: 03/20/2019 Time: 10:49 Bed 3 Private MD: Adam Botello H Diagnosis: Abdominal and pelvic pain;Esophageal pain Presentation: 03/20 10:58 Presenting complaint: Patient states: chest pain, difficulty breathing, not eating X 2 iw weeks, was sent to ER by dr. Collins for work up. Transition of care: patient was not received from another setting of care. Onset of symptoms was March 12, 2019. Risk Assessment: Do you want to hurt yourself or someone else? Patient reports no desire to harm self or others. Initial Sepsis Screen: Does the patient meet any 2 criteria? No. Patient's initial sepsis screen is negative. Does the patient have a suspected source of infection? No. Patient's initial sepsis screen is negative. Care prior to arrival: None. 10:58 Method Of Arrival: Wheelchair iw 10:58 Acuity: GELACIO 3 iw Historical: - Allergies: 11:00 Aspirin; iw 11:00 PENICILLINS; iw - PMHx: 11:00 Chronic pain; CVA; Hypertension; Pneumonia; Seizures; swelling and pain to L lower leg; iw - PSHx: 11:00 Heart stents; iw - Immunization history:: Adult Immunizations not up to date. - Social history:: Smoking status: Patient uses tobacco products, smokes one-half pack cigarettes per day. - Ebola Screening: : Patient negative for fever greater than or equal to 101.5 degrees Fahrenheit, and additional compatible Ebola Virus Disease symptoms Patient denies exposure to infectious person Patient denies travel to an Ebola-affected area in the 21 days before illness onset No symptoms or risks identified at this time. Screenin:15 Abuse screen: Denies threats or abuse. Denies injuries from another. Nutritional ca1 screening: No deficits noted. Tuberculosis screening: No symptoms or risk factors identified. Fall Risk IV access (20 points). Assessment: 11:15 General: Appears in no apparent distress. comfortable, Behavior is calm, cooperative, ca1 appropriate for age. Pain: Complains of pain in mid-sternal area Pain does not radiate. Pain currently is 10 out of 10 on a pain scale. Pain began 2 weeks ago. Neuro: Level of Consciousness is awake, alert, obeys commands, Oriented to person, place, time, situation. Cardiovascular: Heart tones S1 S2 present Capillary refill < 3 seconds Patient's skin is warm and dry. Pulses are all present. Rhythm is sinus rhythm. Respiratory: Airway is patent Respiratory effort is even, unlabored, Respiratory pattern is regular, symmetrical, Breath sounds are coarse bilaterally. GI: Abdomen is flat, non-distended, Bowel sounds present X 4 quads. : No deficits noted. No signs and/or symptoms were reported regarding the genitourinary system. EENT: No deficits noted. No signs and/or symptoms were reported regarding the EENT system. Derm: Skin is intact, is healthy with good turgor, Skin is pink, warm \T\ dry. Musculoskeletal: Circulation, motion, and sensation intact. Capillary refill < 3 seconds, Range of motion: intact in all extremities. 12:06 Reassessment: Patient appears in no apparent distress at this time. Patient and/or ca1 family updated on plan of care and expected duration. Pain level reassessed. Patient is alert, oriented x 3, equal unlabored respirations, skin warm/dry/pink. 13:39 Reassessment: Patient appears in no apparent distress at this time. Patient is alert, ca1 oriented x 3, equal unlabored respirations, skin warm/dry/pink. Cup of water given. No reports of nausea and vomiting at this time. Tolerated well. 14:30 Reassessment: Patient appears in no apparent distress at this time. Patient and/or ca1 family updated on plan of care and expected duration. Pain level reassessed. 15:30 Reassessment: Patient appears in no apparent distress at this time. Patient is alert, ca1 oriented x 3, equal unlabored respirations, skin warm/dry/pink. 16:30 Reassessment: Patient appears in no apparent distress at this time. Patient and/or ca1 family updated on plan of care and expected duration. Pain level reassessed. Vital Signs: 11:00 BP 127 / 71; Pulse 66; Resp 20; Pulse Ox 97% on R/A; Weight 66.22 kg; Height 5 ft. 8 iw in. (172.72 cm); Pain 9/10; 12:06 BP 135 / 65; Pulse 60; Resp 22; Pulse Ox 97% on R/A; ca1 13:39 BP 130 / 63; Pulse 63; Resp 13 S; Pulse Ox 95% on R/A; ca1 14:30 BP 131 / 64; Pulse 64; Resp 19 S; Pulse Ox 96% on R/A; ca1 15:30 BP 124 / 67; Pulse 61; Resp 18 S; Pulse Ox 98% on R/A; ca1 16:30 BP 126 / 71; Pulse 62; Resp 16 S; Pulse Ox 97% on R/A; ca1 11:00 Body Mass Index 22.20 (66.22 kg, 172.72 cm) iw ED Course: 10:49 Patient arrived in ED. mr 10:49 Adam Botello DO is Private Physician. mr 10:51 Edil Pace MD is Attending Physician. kdr 10:52 Paula Torres, JOSEPH is Primary Nurse. ca1 10:59 Triage completed. iw 11:00 Arm band placed on. iw 11:02 EKG done, by medical laboratory technical officer. reviewed by Edil Pace MD. at1 11:11 Inserted saline lock: 24 gauge in left wrist, using aseptic technique. Unable to aa5 collect blood at this time, certified ophthalmic medical technician will come and draw labs. 11:13 XRAY Chest (1 view) In Process Unspecified. EDMS 11:15 Patient has correct armband on for positive identification. Placed in gown. Bed in low ca1 position. Call light in reach. Side rails up X2. vocational rehabilitation technician on. Pulse ox on. NIBP on. Warm blanket given. 11:15 No provider procedures requiring assistance completed. Patient maintains SpO2 ca1 saturation greater than 95% on room air. 12:24 CT Chest, Abdomen, Pelvis - W/Contrast In Process Unspecified. EDMS 16:34 Adam Botello DO is Referral Physician. kdr 17:10 IV discontinued, intact, bleeding controlled, No redness/swelling at site. Pressure ca1 dressing applied. Administered Medications: 11:47 Drug: NS 0.9% 1000 ml Route: IV; Rate: 1 bolus; Site: left hand; ca1 13:39 Follow up: Response: No adverse reaction; IV Status: Completed infusion ca1 11:50 Drug: Pepcid 20 mg Route: IVP; Site: left hand; ca1 13:39 Follow up: Response: No adverse reaction; Pain is decreased ca1 11:52 Drug: Zofran 4 mg Route: IVP; Site: left hand; ca1 13:39 Follow up: Response: No adverse reaction; Nausea is decreased ca1 12:31 Drug: GI Cocktail without - (Maalox Suspension 30 ml, Lidocaine Liquid 2 % 15 ca1 ml) Route: PO; 13:39 Follow up: Response: No adverse reaction; Pain is decreased ca1 Outcome: 16:36 Discharge ordered by . urvashi 17:10 Discharged to home via wheelchair, with significant other. ca1 17:10 Condition: stable 17:10 Discharge instructions given to patient, Instructed on discharge instructions, follow up and referral plans. medication usage, Demonstrated understanding of instructions, follow-up care, medications, Prescriptions given X 3. 17:12 Patient left the ED. ca1 Signatures: Dispatcher [employer] EDMS Edil Pace MD MD kdr Rivera, Mary mr Zahra Khalil, RN JOSEPH iw Leilani Gamble RN RN aa5 Jeannine Bolivar, air crew member EKG Tat1 Paula Torres RN RN ca1
--- NOTE | 2019-03-20 16:38 | EDPHYS ---
Physician Documentation [facility] Name: Bryan Graf Age: 68 yrs Sex: Male : 1950 Arrival Date: 03/20/2019 Time: 10:49 Bed 3 Private MD: Aadm Botello H ED Physician Edil Pace HPI: 03/20 17:55 This 68 yrs old Male presents to ER via Wheelchair with complaints of Chest kdr Pain. 17:55 The patient or guardian reports chest pain that is located primarily in the substernal kdr area, epigastric area. 17:55 Onset: gradually, 2 week(s) ago. The pain does not radiate. Associated signs and kdr symptoms: Pertinent positives: abdominal pain, Whenever he tried to eat he has pain in his esophageal area and epigastrium . The chest pain is described as aching, burning, dull. Duration: The patient or guardian reports multiple episodes, that are intermittent, that wax and wane, Made worse with eating and drinking. Modifying factors: The symptoms are alleviated by nothing. the symptoms are aggravated by eating, swallowing. Severity of pain: At its worst the pain was mild moderate in the emergency department the pain has improved mildly. The patient has not experienced similar symptoms in the past. The patient has been recently seen by a physician: Sent by Dr. trent. Historical: - Allergies: 11:00 Aspirin; iw 11:00 PENICILLINS; iw - PMHx: 11:00 Chronic pain; CVA; Hypertension; Pneumonia; Seizures; swelling and pain to L lower leg; iw - PSHx: 11:00 Heart stents; iw - Immunization history:: Adult Immunizations not up to date. - Social history:: Smoking status: Patient uses tobacco products, smokes one-half pack cigarettes per day. - Ebola Screening: : Patient negative for fever greater than or equal to 101.5 degrees Fahrenheit, and additional compatible Ebola Virus Disease symptoms Patient denies exposure to infectious person Patient denies travel to an Ebola-affected area in the 21 days before illness onset No symptoms or risks identified at this time. ROS: 17:55 Constitutional: Negative for fever, chills, and weight loss, Eyes: Negative for injury, kdr pain, redness, and discharge, ENT: Negative for injury, pain, and discharge, Neck: Negative for injury, pain, and swelling, Respiratory: Negative for shortness of breath, cough, wheezing, and pleuritic chest pain, Abdomen/GI: Negative for abdominal pain, nausea, vomiting, diarrhea, and constipation, Back: Negative for injury and pain, : Negative for injury, bleeding, discharge, and swelling, MS/Extremity: Negative for injury and deformity, Skin: Negative for injury, rash, and discoloration, Neuro: Negative for headache, weakness, numbness, tingling, and seizure activity. Psych: Negative for depression, anxiety, suicide ideation, homicidal ideation, and hallucinations, Allergy/Immunology: Negative for hives, rash, and allergies, Endocrine: Negative for neck swelling, polydipsia, polyuria, polyphagia, and marked weight changes, Hematologic/Lymphatic: Negative for swollen nodes, abnormal bleeding, and unusual bruising. 17:55 Cardiovascular: Positive for chest pain. Exam: 17:55 Constitutional: This is a well developed, poorly nourished patient who is awake, kdr alert, and in no acute distress. Head/Face: Normocephalic, atraumatic. Eyes: Pupils equal round and reactive to light, extra-ocular motions intact. Lids and lashes normal. Conjunctiva and sclera are non-icteric and not injected. Cornea within normal limits. Periorbital areas with no swelling, redness, or edema. Neck: Trachea midline, no thyromegaly or masses palpated, and no cervical lymphadenopathy. Supple, full range of motion without nuchal rigidity, or vertebral point tenderness. No Meningismus. Chest/axilla: Normal chest wall appearance and motion. Nontender with no deformity. No lesions are appreciated. Cardiovascular: Regular rate and rhythm with a normal S1 and S2. No gallops, murmurs, or rubs. Normal PMI, no JVD. No pulse deficits. Respiratory: Lungs have equal breath sounds bilaterally, clear to auscultation and percussion. No rales, rhonchi or wheezes noted. No increased work of breathing, no retractions or nasal flaring. Abdomen/GI: Soft, non-tender, with normal bowel sounds. No distension or tympany. No guarding or rebound. No evidence of tenderness throughout. Back: No spinal tenderness. No costovertebral tenderness. Full range of motion. Skin: Warm, dry with normal turgor. Normal color with no rashes, no lesions, and no evidence of cellulitis. MS/ Extremity: Pulses equal, no cyanosis. Neurovascular intact. Full, normal range of motion. Neuro: Awake and alert, GCS 15, oriented to person, place, time, and situation. Cranial nerves II-XII grossly intact. Motor strength 5/5 in all extremities. Sensory grossly intact. Cerebellar exam normal. Normal gait. Psych: Awake, alert, with orientation to person, place and time. Behavior, mood, and affect are within normal limits. Vital Signs: 11:00 BP 127 / 71; Pulse 66; Resp 20; Pulse Ox 97% on R/A; Weight 66.22 kg; Height 5 ft. 8 iw in. (172.72 cm); Pain 9/10; 12:06 BP 135 / 65; Pulse 60; Resp 22; Pulse Ox 97% on R/A; ca1 13:39 BP 130 / 63; Pulse 63; Resp 13 S; Pulse Ox 95% on R/A; ca1 14:30 BP 131 / 64; Pulse 64; Resp 19 S; Pulse Ox 96% on R/A; ca1 15:30 BP 124 / 67; Pulse 61; Resp 18 S; Pulse Ox 98% on R/A; ca1 16:30 BP 126 / 71; Pulse 62; Resp 16 S; Pulse Ox 97% on R/A; ca1 11:00 Body Mass Index 22.20 (66.22 kg, 172.72 cm) iw MDM: 16:36 Patient medically screened. kdr 17:55 Data reviewed: vital signs, nurses notes, lab test result(s), EKG, radiologic studies. kdr Counseling: I had a detailed discussion with the patient and/or guardian regarding: the historical points, exam findings, and any diagnostic results supporting the discharge/admit diagnosis, lab results, radiology results, the need for outpatient follow up. 03/20 10:51 Order name: Basic Metabolic Panel; Complete Time: 12:54 kdr 03/20 10:51 Order name: CBC with Diff; Complete Time: 12:54 kdr 12 10:51 Order name: LFT's; Complete Time: 12:54 kdr 03/20 10:51 Order name: Magnesium; Complete Time: 12:54 kdr 03/20 10:51 Order name: NT PRO-BNP; Complete Time: 12:54 kdr 12 10:51 Order name: PT-INR; Complete Time: 12:54 kdr 03/20 10:51 Order name: Troponin (emerg Dept Use Only); Complete Time: 12:54 kdr 03/20 10:51 Order name: XRAY Chest (1 view); Complete Time: 12:54 kdr 03/20 11:35 Order name: CT Chest, Abdomen, Pelvis - W/Contrast kdr 03/20 10:51 Order name: EKG; Complete Time: 10:53 kdr 03/20 10:51 Order name: Cardiac monitoring; Complete Time: 11:14 kdr 03/20 10:51 Order name: EKG - Nurse/Tech; Complete Time: 11:15 kdr 03/20 10:51 Order name: IV Saline Lock; Complete Time: 11:13 kdr 03/20 10:51 Order name: Labs collected and sent; Complete Time: 12:07 kdr 03/20 10:51 Order name: O2 Per Protocol; Complete Time: 11:15 kdr 03/20 10:51 Order name: O2 Sat Monitoring; Complete Time: 11:15 kdr 03/20 13:12 Order name: PO challenge; Complete Time: 13:39 kdr Administered Medications: 11:47 Drug: NS 0.9% 1000 ml Route: IV; Rate: 1 bolus; Site: left hand; ca1 13:39 Follow up: Response: No adverse reaction; IV Status: Completed infusion ca1 11:50 Drug: Pepcid 20 mg Route: IVP; Site: left hand; ca1 13:39 Follow up: Response: No adverse reaction; Pain is decreased ca1 11:52 Drug: Zofran 4 mg Route: IVP; Site: left hand; ca1 13:39 Follow up: Response: No adverse reaction; Nausea is decreased ca1 12:31 Drug: GI Cocktail without - (Maalox Suspension 30 ml, Lidocaine Liquid 2 % 15 ca1 ml) Route: PO; 13:39 Follow up: Response: No adverse reaction; Pain is decreased ca1 Disposition: 03/20/19 16:36 Discharged to Home. Impression: Abdominal and pelvic pain, Esophageal pain. - Condition is Stable. - Discharge Instructions: Abdominal Pain, Adult, [id number]-Fjep. - Prescriptions for Carafate 1 gram Oral Tablet - take 1 tablet by ORAL route 4 times per day take on an empty stomach, beginning on waking and last dose at bedtime; 100 tablet. Protonix 40 mg Oral Tablet - take 1 tablet by ORAL route once daily; 30 tablet. Tramadol 50 mg Oral Tablet - take 1 tablet by ORAL route every 8 hours as needed; 12 tablet. - Medication Reconciliation Form, Thank You Letter, Prescription Opioid Use form. - Follow up: Rosmery, FabiolaDO Rosi; When: 2 - 3 days; Reason: If symptoms return, Further diagnostic work-up, Recheck today's complaints, Continuance of care, Re-evaluation by your physician. - Problem is an ongoing problem. - Symptoms are unchanged. - Notes: Please take one to two Ensure drinks daily as tolerated Signatures: Dispatcher [employer] EDWV Edil Pace MD MD kdr Zahra Khalil RN RN iw Paula Torres RN RN ca1 Corrections: (The following items were deleted from the chart) 16:03 15:46 Chest Abdomen W/ Con+CT.RAD.BRZ ordered. [facility] EDWV 17:12 16:36 03/20/2019 16:36 Discharged to Home. Impression: Abdominal and pelvic pain; ca1 Esophageal pain. Condition is Stable. Forms are Medication Reconciliation Form, Thank You Letter, Antibiotic Education, Prescription Opioid Use. Follow up: FabiolaRosi Botello; When: 2 - 3 days; Reason: If symptoms return, Further diagnostic work-up, Recheck today's complaints, Continuance of care, Re-evaluation by your physician. Problem is an ongoing problem. Symptoms are unchanged. kdr
[2019-03-20 19:00] VITALS: BP 126/71; O2SAT 97
== END 2019-03-20 17:12 | disposition home or self-care (01) ==
LOC: ER 10:47
DX: K22.8 Other specified diseases of esophagus (principal); F17.210 Nicotine dependence, cigarettes, uncomplicated; I10 Essential (primary) hypertension; Z88.0 Allergy status to penicillin; Z88.6 Allergy status to analgesic agent; Z95.818 Presence of other cardiac implants and grafts
CPT/HCPCS: 96361; 93005; 85025; 80048; 36415; 83735; 85610; 80076; 84484; 83880; 71260; 74177; 71045; 96375; 96374; 99285; Q9967; J7030; J2405

== ENCOUNTER 2019-04-29 16:49 | Emergency (ER) | payer OTHER ==
--- OUTSIDE RECORDS SUMMARY | 2019-04-29 16:58 | XMS REPORT ---
:1950 Author Organization [facility] Address [address] [place] [address] Care Team Providers Name Role Phone SIMONE MIKI ZHANG Unavailable Unavailable CLARY BRAY Unavailable Unavailable AUGUSTIN CD Unavailable Unavailable MAXIMILIANO RUSSELL Unavailable Unavailable AUGUSTIN [...] Range Comments B-TYPE NATRIURETIC PEPTIDE (BEAKER) (test ceuw=595) 136 pg/mL 0-100 COMPREHENSIVE METABOLIC [id number] 05:53:00 Test Item Value Reference Range Comments TOTAL PROTEIN (BEAKER) 6.7 gm/dL 6.0-8.3 (test sbtf=805) ALBUMIN (BEAKER) (test 3.1 g/dL 3.5-5.0 lcal=4781) ALKALINE PHOSPHATASE 116 U/L 40-150 (BEAKER) (test dvpp=763) BILIRUBIN TOTAL (BEAKER) < mg/dL 0.2-1.2 (test ngzt=166) SODIUM (BEAKER) (test 141 meq/L 136-145 ieiy=343) POTASSIUM (BEAKER) (test 4.0 meq/L 3.5-5.1 uknf=197) CHLORIDE (BEAKER) (test 107 meq/L 98-107 lqmz=971) CO2 (BEAKER) (test 25 meq/L 22-29 yfnr=812) BLOOD UREA NITROGEN 9 mg/dL 7-21 (BEAKER) (test tdpc=577) CREATININE (BEAKER) (test 0.58 mg/dL 0.57-1.25 tgwu=338) GLUCOSE RANDOM (BEAKER) 94 mg/dL 70-105 (test zbzl=171) CALCIUM (BEAKER) (test 8.7 mg/dL 8.4-10.2 zcfn=205) AST (SGOT) (BEAKER) (test 67 U/L 5-34 ytkl=824) ALT (SGPT) (BEAKER) (test 88 U/L 6-55 dksp=595) EGFR (BEAKER) (test 139 mL/min/1.73 sq ESTIMATED GFR IS NOT mqon=9758) m ACCURATE CREATININE CLEARANCE IN PREDICTING GLOMERULAR FILTRATION RATE. ESTIMATED GFR IS NOT APPLICABLE FOR DIALYSIS PATIENTS. POCT-GLUCOSE [id number] 16:33:00 Test Item Value Reference Range Comments POC-GLUCOSE METER (BEAKER) 116 mg/dL 70-110 TESTED AT [address] (test oepd=6718) [place] [address] POCT-GLUCOSE [id number] 11:08:00 Test Item Value Reference Range Comments POC-GLUCOSE METER (BEAKER) 133 mg/dL 70-110 TESTED AT [address] (test cvtv=8962) [place] [address] POCT-GLUCOSE [id number] 06:11:00 Test Item Value Reference Range Comments POC-GLUCOSE METER (BEAKER) 105 mg/dL 70-110 TESTED AT [address] (test fzjj=6454) [place] [address] POCT-GLUCOSE [id number] 20:28:00 Test Item Value Reference Range Comments POC-GLUCOSE METER (BEAKER) 124 mg/dL 70-110 TESTED AT [address] (test auks=6264) [place] [address] POCT-GLUCOSE [id number] 16:46:00 Test Item Value Reference Range Comments POC-GLUCOSE METER (BEAKER) 113 mg/dL 70-110 TESTED AT [address] (test trqk=2145) [place] [address] POCT-GLUCOSE [id number] 11:46:00 Test Item Value Reference Range Comments POC-GLUCOSE METER (BEAKER) 113 mg/dL 70-110 TESTED AT [address] (test uoug=1966) [place] [address] URINE [id number] 09:54:00 Test Item Value Reference Range Comments CULTURE (BEAKER) (test KLEBSIELLA PNEUMONIAE >100,000 col/mL fuxw=5715) Klebsiella pneumoniae Amikacin (test code=1) Ampicillin + Sulbactam (test code=6) Aztreonam (test code=32) Cefepime (test code=51) Cefoxitin (test code=68) Ceftazidime (test code=27) Ceftriaxone (test code=52) Ertapenem (test code=38) Gentamicin (test code=18) Levofloxacin (test code=22) Meropenem (test code=34) Nitrofurantoin (test code=23) Piperacillin + Tazobactam (test code=29) Tetracycline (test code=2) Tobramycin (test code=25) Trimethoprim + Sulfamethoxazole (test code=47) POCT-GLUCOSE [id number] 06:46:00 Test Item Value Reference Range Comments POC-GLUCOSE METER (BEAKER) 111 mg/dL 70-110 TESTED AT [address] (test ydpz=6765) [place] [address] POCT-GLUCOSE [id number] 20:48:00 Test Item Value Reference Range Comments POC-GLUCOSE METER (BEAKER) 128 mg/dL 70-110 TESTED AT [address] (test cxio=0206) [place] [address] POCT-GLUCOSE [id number] 16:00:00 Test Item Value Reference Range Comments POC-GLUCOSE METER (BEAKER) 127 mg/dL 70-110 TESTED AT [address] (test fern=2426) [place] [address] POCT-GLUCOSE [id number] 11:16:00 Test Item Value Reference Range Comments POC-GLUCOSE METER (BEAKER) 273 mg/dL 70-110 TESTED AT [address] (test nxnr=7523) [place] [address] COMPREHENSIVE METABOLIC [id number] 06:44:00 Test Item Value Reference Range Comments TOTAL PROTEIN (BEAKER) 6.4 gm/dL 6.0-8.3 (test msrg=603) ALBUMIN (BEAKER) (test 2.9 g/dL 3.5-5.0 nrol=6769) ALKALINE PHOSPHATASE 109 U/L 40-150 (BEAKER) (test bjkp=833) BILIRUBIN TOTAL (BEAKER) < mg/dL 0.2-1.2 (test cfln=179) SODIUM (BEAKER) (test 142 meq/L 136-145 qauv=414) POTASSIUM (BEAKER) (test 4.1 meq/L 3.5-5.1 zgwq=299) CHLORIDE (BEAKER) (test 107 meq/L 98-107 yqog=523) CO2 (BEAKER) (test 26 meq/L 22-29 klfd=538) BLOOD UREA NITROGEN 7 mg/dL 7-21 (BEAKER) (test lmkz=331) CREATININE (BEAKER) (test 0.56 mg/dL 0.57-1.25 ihjl=272) GLUCOSE RANDOM (BEAKER) 103 mg/dL 70-105 (test xxoo=130) CALCIUM (BEAKER) (test 8.7 mg/dL 8.4-10.2 wijh=466) AST (SGOT) (BEAKER) (test 42 U/L 5-34 hrwy=310) ALT (SGPT) (BEAKER) (test 32 U/L 6-55 uawt=116) EGFR (BEAKER) (test 145 mL/min/1.73 sq ESTIMATED GFR IS NOT etwk=5359) m ACCURATE CREATININE CLEARANCE IN PREDICTING GLOMERULAR FILTRATION RATE. ESTIMATED GFR IS NOT APPLICABLE FOR DIALYSIS PATIENTS. [id number] 06:27:00 Test Item Value Reference Range Comments PARTIAL THROMBOPLASTIN TIME (BEAKER) (test 38.5 seconds 22.5-36.0 lzpu=349) PROTHROMBIN [id number] 06:26:00 Test Item Value Reference Range Comments PROTIME (BEAKER) (test rhbt=329) 16.3 seconds 11.7-14.7 INR (BEAKER) (test uwid=242) 1.3 <=5.9 RECOMMENDED COUMADIN/WARFARIN INR THERAPY RANGESSTANDARD DOSE: 2.0 - 3.0 Includes: PROPHYLAXIS forvenous thrombosis, systemic embolization; TREATMENT for venous thrombosis and/or pulmonary embolus.HIGH RISK: Target INR is 2.5-3.5 for patients with mechanical heart valves.CBC W/PLT COUNT & AUTO [id number] 06:25:00 Test Item Value Reference Range Comments WHITE BLOOD CELL COUNT (BEAKER) (test cdal=816) 7.1 K/ L 3.5-10.5 RED BLOOD CELL COUNT (BEAKER) (test cniw=830) 2.90 M/ L 4.63-6.08 HEMOGLOBIN (BEAKER) (test kpka=047) 9.1 GM/DL 13.7-17.5 HEMATOCRIT (BEAKER) (test gsjd=976) 28.9 % 40.1-51.0 MEAN CORPUSCULAR VOLUME (BEAKER) (test scks=218) 99.7 fL 79.0-92.2 MEAN CORPUSCULAR HEMOGLOBIN (BEAKER) (test 31.4 pg 25.7-32.2 gegz=522) MEAN CORPUSCULAR HEMOGLOBIN CONC (BEAKER) (test 31.5 GM/DL 32.3-36.5 sluc=046) RED CELL DISTRIBUTION WIDTH (BEAKER) (test 16.4 % 11.6-14.4 hpnl=126) PLATELET COUNT (BEAKER) (test juli=814) 402 K/CU MM 150-450 MEAN PLATELET VOLUME (BEAKER) (test tjzk=585) 9.2 fL 9.4-12.4 NUCLEATED RED BLOOD CELLS (BEAKER) (test 0 /100 WBC 0-0 exlo=497) NEUTROPHILS RELATIVE PERCENT (BEAKER) (test 61 % necn=624) LYMPHOCYTES RELATIVE PERCENT (BEAKER) (test 21 % lluc=959) MONOCYTES RELATIVE PERCENT (BEAKER) (test 16 % ldgb=514) EOSINOPHILS RELATIVE PERCENT (BEAKER) (test 2 % iugn=607) BASOPHILS RELATIVE PERCENT (BEAKER) (test 0 % ejzb=188) NEUTROPHILS ABSOLUTE COUNT (BEAKER) (test 4.30 K/ L 1.78-5.38 gkbq=660) LYMPHOCYTES ABSOLUTE COUNT (BEAKER) (test 1.49 K/ L 1.32-3.57 vybw=602) MONOCYTES ABSOLUTE COUNT (BEAKER) (test 1.10 K/ L 0.30-0.82 fbcp=433) EOSINOPHILS ABSOLUTE COUNT (BEAKER) (test 0.15 K/ L 0.04-0.54 ujev=538) BASOPHILS ABSOLUTE COUNT (BEAKER) (test 0.02 K/ L 0.01-0.08 pecw=837) IMMATURE GRANULOCYTES-RELATIVE PERCENT (BEAKER) 0 % 0-1 (test ibiq=2116) POCT-GLUCOSE [id number] 06:22:00 Test Item Value Reference Range Comments POC-GLUCOSE METER (BEAKER) 131 mg/dL 70-110 TESTED AT [address] (test wush=3382) [facility] [address] URINALYSIS W/ [id number] 20:35:00 Test Item Value Reference Range Comments COLOR (BEAKER) (test dtlu=600) Yellow CLARITY (BEAKER) (test llhs=837) Clear SPECIFIC GRAVITY UA (BEAKER) (test 1.006 1.001-1.035 qdnk=610) PH UA (BEAKER) (test uhfa=428) 6.5 5.0-8.0 PROTEIN UA (BEAKER) (test ftic=434) Negative Negative GLUCOSE UA (BEAKER) (test nwpg=224) Negative Negative KETONES UA (BEAKER) (test itzn=825) Negative Negative BILIRUBIN UA (BEAKER) (test vczi=721) Negative Negative BLOOD UA (BEAKER) (test jmce=275) Negative Negative NITRITE UA (BEAKER) (test untt=274) Negative Negative LEUKOCYTE ESTERASE UA (BEAKER) (test Negative Negative yekl=673) UROBILINOGEN UA (BEAKER) (test sidc=703) 0.2 mg/dL 0.2-1.0 RBC UA (BEAKER) (test wuwf=144) 1 /HPF WBC UA (BEAKER) (test qupn=315) 0 /HPF SOURCE(BEAKER) (test xhbr=0319) Urine, Clean Catch POCT-GLUCOSE [id number] 20:21:00 Test Item Value Reference Range Comments POC-GLUCOSE METER (BEAKER) 132 mg/dL 70-110 TESTED AT [address] (test idxc=7318) [place] [address] POCT-GLUCOSE [id number] 16:17:00 Test Item Value Reference Range Comments POC-GLUCOSE METER (BEAKER) 101 mg/dL 70-110 TESTED AT [address] (test ifav=3276) [place] [address] POCT-GLUCOSE [id number] 13:35:00 Test Item Value Reference Range Comments POC-GLUCOSE METER (BEAKER) 143 mg/dL 70-110 TESTED AT [address] (test opkc=7569) [facility] [address] BASIC METABOLIC [id number] 06:31:00 Test Item Value Reference Range Comments SODIUM (BEAKER) (test 137 meq/L 136-145 zuhh=847) POTASSIUM (BEAKER) (test 4.2 meq/L 3.5-5.1 vwgk=785) CHLORIDE (BEAKER) (test 104 meq/L 98-107 auwt=770) CO2 (BEAKER) (test 26 meq/L 22-29 nyjr=742) BLOOD UREA NITROGEN 4 mg/dL 7-21 (BEAKER) (test cjbj=589) CREATININE (BEAKER) (test 0.57 mg/dL 0.57-1.25 dcql=230) GLUCOSE RANDOM (BEAKER) 97 mg/dL 70-105 (test wevp=474) CALCIUM (BEAKER) (test 8.8 mg/dL 8.4-10.2 gedf=413) EGFR (BEAKER) (test 142 mL/min/1.73 sq m ESTIMATED GFR IS NOT lznj=0701) ACCURATE CREATININE CLEARANCE IN PREDICTING GLOMERULAR FILTRATION RATE. ESTIMATED GFR IS NOT APPLICABLE FOR DIALYSIS PATIENTS. BASIC METABOLIC [id number] 05:41:00 Test Item Value Reference Range Comments SODIUM (BEAKER) (test 141 meq/L 136-145 pxya=013) POTASSIUM (BEAKER) (test 3.9 meq/L 3.5-5.1 swat=934) CHLORIDE (BEAKER) (test 107 meq/L 98-107 adwh=977) CO2 (BEAKER) (test 24 meq/L 22-29 rtjm=194) BLOOD UREA NITROGEN 4 mg/dL 7-21 (BEAKER) (test zpvy=073) CREATININE (BEAKER) (test 0.59 mg/dL 0.57-1.25 kylu=394) GLUCOSE RANDOM (BEAKER) 100 mg/dL 70-105 (test ptmt=004) CALCIUM (BEAKER) (test 8.7 mg/dL 8.4-10.2 ucnr=582) EGFR (BEAKER) (test 137 mL/min/1.73 sq m ESTIMATED GFR IS NOT hvps=3232) ACCURATE CREATININE CLEARANCE IN PREDICTING GLOMERULAR FILTRATION RATE. ESTIMATED GFR IS NOT APPLICABLE FOR DIALYSIS PATIENTS. CBC (HEMOGRAM ONLY)2016-12-13 05:18:00 Test Item Value Reference Range Comments WHITE BLOOD CELL COUNT (BEAKER) (test xcvx=867) 8.5 K/ L 3.5-10.5 RED BLOOD CELL COUNT (BEAKER) (test lxzk=755) 2.81 M/ L 4.63-6.08 HEMOGLOBIN (BEAKER) (test poji=458) 9.0 GM/DL 13.7-17.5 HEMATOCRIT (BEAKER) (test gfyr=593) 27.9 % 40.1-51.0 MEAN CORPUSCULAR VOLUME (BEAKER) (test fwwy=798) 99.3 fL 79.0-92.2 MEAN CORPUSCULAR HEMOGLOBIN (BEAKER) (test 32.0 pg 25.7-32.2 ydvb=774) MEAN CORPUSCULAR HEMOGLOBIN CONC (BEAKER) (test 32.3 GM/DL 32.3-36.5 hzuk=044) RED CELL DISTRIBUTION WIDTH (BEAKER) (test 17.0 % 11.6-14.4 kfec=977) PLATELET COUNT (BEAKER) (test sirs=537) 473 K/CU MM 150-450 MEAN PLATELET VOLUME (BEAKER) (test gynb=776) 9.3 fL 9.4-12.4 NUCLEATED RED BLOOD CELLS (BEAKER) (test 0 /100 WBC 0-0 ksae=346) VITAMIN [id number] 06:04:00 Test Item Value Reference Range Comments VITAMIN B12 (BEAKER) (test aalz=101) 619 pg/mL 213-816 [id number] 06:04:00 Test Item Value Reference Range Comments FERRITIN (BEAKER) (test wdyi=259) 335 ng/mL 5-275 Effective 03/02/2014: Reference Range ChangeNew: Male 5-275 Previous: Male 22-322 Female 5-275 Female 10-291FOLATE, [id number] 06: 04:00 Test Item Value Reference Range Comments FOLATE (BEAKER) (test qcgj=856) 4.9 ng/mL >=7.0 Effective 03/02/2014: Folate Reference Range ChangeNew: >=7.0 Previous: & gt;=5.4BASIC METABOLIC [id number] 05:47:00 Test Item Value Reference Range Comments SODIUM (BEAKER) (test 135 meq/L 136-145 dagr=164) POTASSIUM (BEAKER) (test 4.1 meq/L 3.5-5.1 paan=167) CHLORIDE (BEAKER) (test 103 meq/L 98-107 mlfi=270) CO2 (BEAKER) (test 24 meq/L 22-29 xgrh=013) BLOOD UREA NITROGEN 5 mg/dL 7-21 (BEAKER) (test dath=179) CREATININE (BEAKER) (test 0.56 mg/dL 0.57-1.25 xfid=115) GLUCOSE RANDOM (BEAKER) 98 mg/dL 70-105 (test tiuj=006) CALCIUM (BEAKER) (test 8.5 mg/dL 8.4-10.2 lhcn=643) EGFR (BEAKER) (test 145 mL/min/1.73 sq m ESTIMATED GFR IS NOT bdrs=6556) ACCURATE CREATININE CLEARANCE IN PREDICTING GLOMERULAR FILTRATION RATE. ESTIMATED GFR IS NOT APPLICABLE FOR DIALYSIS PATIENTS. IRON, TIBC, % SAT. (WITHOUT FERRITIN)2016-12-12 05:29:00 Test Item Value Reference Range Comments IRON (BEAKER) (test hcmb=937) 25 ug/dL 40-160 TOTAL IRON BINDING CAPACITY (BEAKER) (test 238 ug/dL 250-450 uszf=430) IRON % SATURATION (2) (BEAKER) (test scuy=6469) 11 % 20-55 CBC (HEMOGRAM ONLY)2016-12-12 05:09:00 Test Item Value Reference Range Comments WHITE BLOOD CELL COUNT (BEAKER) (test jwwq=399) 8.6 K/ L 3.5-10.5 RED BLOOD CELL COUNT (BEAKER) (test rnth=284) 2.74 M/ L 4.63-6.08 HEMOGLOBIN (BEAKER) (test cptf=528) 8.9 GM/DL 13.7-17.5 HEMATOCRIT (BEAKER) (test xicw=290) 27.3 % 40.1-51.0 MEAN CORPUSCULAR VOLUME (BEAKER) (test nwla=071) 99.6 fL 79.0-92.2 MEAN CORPUSCULAR HEMOGLOBIN (BEAKER) (test 32.5 pg 25.7-32.2 rcgj=017) MEAN CORPUSCULAR HEMOGLOBIN CONC (BEAKER) (test 32.6 GM/DL 32.3-36.5 nuxe=854) RED CELL DISTRIBUTION WIDTH (BEAKER) (test 17.2 % 11.6-14.4 ryvz=204) PLATELET COUNT (BEAKER) (test ktga=839) 400 K/CU MM 150-450 MEAN PLATELET VOLUME (BEAKER) (test fuxa=411) 9.2 fL 9.4-12.4 NUCLEATED RED BLOOD CELLS (BEAKER) (test 0 /100 WBC 0-0 etym=840) BASIC METABOLIC [id number] 05:53:00 Test Item Value Reference Range Comments SODIUM (BEAKER) (test 138 meq/L 136-145 phfu=492) POTASSIUM (BEAKER) (test 4.0 meq/L 3.5-5.1 Specimen slightly qekd=121) hemolyzed CHLORIDE (BEAKER) (test 105 meq/L 98-107 djms=636) CO2 (BEAKER) (test 24 meq/L 22-29 ktqx=513) BLOOD UREA NITROGEN 4 mg/dL 7-21 (BEAKER) (test nwxa=417) CREATININE (BEAKER) (test 0.56 mg/dL 0.57-1.25 Specimen slightly vlkw=422) hemolyzed GLUCOSE RANDOM (BEAKER) 97 mg/dL 70-105 (test txnz=526) CALCIUM (BEAKER) (test 8.4 mg/dL 8.4-10.2 uirf=714) EGFR (BEAKER) (test 145 mL/min/1.73 sq m ESTIMATED GFR IS NOT upxo=8878) ACCURATE CREATININE CLEARANCE IN PREDICTING GLOMERULAR FILTRATION RATE. ESTIMATED GFR IS NOT APPLICABLE FOR DIALYSIS PATIENTS. CREATINE KINASE (CK)2016-12-11 05:53:00 Test Item Value Reference Range Comments CREATINE KINASE TOTAL (BEAKER) (test lmhw=988) 29 U/L 29-200 CBC (HEMOGRAM ONLY)2016-12-11 05:34:00 Test Item Value Reference Range Comments WHITE BLOOD CELL COUNT (BEAKER) (test fkrh=061) 8.0 K/ L 3.5-10.5 RED BLOOD CELL COUNT (BEAKER) (test tttp=761) 2.70 M/ L 4.63-6.08 HEMOGLOBIN (BEAKER) (test twrs=039) 8.6 GM/DL 13.7-17.5 HEMATOCRIT (BEAKER) (test tdxg=834) 27.0 % 40.1-51.0 MEAN CORPUSCULAR VOLUME (BEAKER) (test uoxo=774) 100.0 fL 79.0-92.2 MEAN CORPUSCULAR HEMOGLOBIN (BEAKER) (test 31.9 pg 25.7-32.2 ksru=838) MEAN CORPUSCULAR HEMOGLOBIN CONC (BEAKER) (test 31.9 GM/DL 32.3-36.5 dgia=928) RED CELL DISTRIBUTION WIDTH (BEAKER) (test 17.2 % 11.6-14.4 socq=723) PLATELET COUNT (BEAKER) (test mbpv=096) 406 K/CU MM 150-450 MEAN PLATELET VOLUME (BEAKER) (test hxba=467) 9.4 fL 9.4-12.4 NUCLEATED RED BLOOD CELLS (BEAKER) (test 0 /100 WBC 0-0 mzzc=209) [id number] 22:53:00 Test Item Value Reference Range Comments ACTIVATED CLOTTING TIME 153 sec TESTED AT [address] (BEAKER) (test ibdf=537) [place] [address] [id number] 22:35:00 Test Item Value Reference Range Comments ACTIVATED CLOTTING TIME 202 sec TESTED AT [address] (BEAKER) (test fkqd=615) [place] [address] [id number] 22:04:00 Test Item Value Reference Range Comments PARTIAL THROMBOPLASTIN TIME (BEAKER) (test 45.2 seconds 22.5-36.0 pxxh=818) Prior to initiating heparinCBC (HEMOGRAM ONLY)2016-12-10 21:56:00 Test Item Value Reference Range Comments WHITE BLOOD CELL COUNT (BEAKER) (test dshm=361) 9.5 K/ L 3.5-10.5 RED BLOOD CELL COUNT (BEAKER) (test rigz=776) 2.79 M/ L 4.63-6.08 HEMOGLOBIN (BEAKER) (test fkot=936) 9.0 GM/DL 13.7-17.5 HEMATOCRIT (BEAKER) (test zmbg=167) 27.6 % 40.1-51.0 MEAN CORPUSCULAR VOLUME (BEAKER) (test yfut=578) 98.9 fL 79.0-92.2 MEAN CORPUSCULAR HEMOGLOBIN (BEAKER) (test 32.3 pg 25.7-32.2 svfk=350) MEAN CORPUSCULAR HEMOGLOBIN CONC (BEAKER) (test 32.6 GM/DL 32.3-36.5 udwa=240) RED CELL DISTRIBUTION WIDTH (BEAKER) (test 17.3 % 11.6-14.4 sovy=876) PLATELET COUNT (BEAKER) (test wpjk=798) 429 K/CU MM 150-450 MEAN PLATELET VOLUME (BEAKER) (test hfix=364) 9.8 fL 9.4-12.4 NUCLEATED RED BLOOD CELLS (BEAKER) (test 0 /100 WBC 0-0 ilkm=285) BASIC METABOLIC [id number] 08:43:00 Test Item Value Reference Range Comments SODIUM (BEAKER) (test 139 meq/L 136-145 kobd=635) POTASSIUM (BEAKER) (test 4.0 meq/L 3.5-5.1 gecs=779) CHLORIDE (BEAKER) (test 104 meq/L 98-107 pllw=029) CO2 (BEAKER) (test 24 meq/L 22-29 jipr=641) BLOOD UREA NITROGEN 4 mg/dL 7-21 (BEAKER) (test kjtw=353) CREATININE (BEAKER) (test 0.58 mg/dL 0.57-1.25 ngdo=852) GLUCOSE RANDOM (BEAKER) 95 mg/dL 70-105 (test wtlf=707) CALCIUM (BEAKER) (test 8.7 mg/dL 8.4-10.2 kisn=351) EGFR (BEAKER) (test 139 mL/min/1.73 sq m ESTIMATED GFR IS NOT ocjc=1229) ACCURATE CREATININE CLEARANCE IN PREDICTING GLOMERULAR FILTRATION RATE. ESTIMATED GFR IS NOT APPLICABLE FOR DIALYSIS PATIENTS. CBC (HEMOGRAM ONLY)2016-12-10 08:03:00 Test Item Value Reference Range Comments WHITE BLOOD CELL COUNT (BEAKER) (test goji=996) 8.7 K/ L 3.5-10.5 RED BLOOD CELL COUNT (BEAKER) (test vatv=627) 2.80 M/ L 4.63-6.08 HEMOGLOBIN (BEAKER) (test vvsx=695) 9.2 GM/DL 13.7-17.5 HEMATOCRIT (BEAKER) (test vplc=568) 27.7 % 40.1-51.0 MEAN CORPUSCULAR VOLUME (BEAKER) (test mpru=447) 98.9 fL 79.0-92.2 MEAN CORPUSCULAR HEMOGLOBIN (BEAKER) (test 32.9 pg 25.7-32.2 oahy=072) MEAN CORPUSCULAR HEMOGLOBIN CONC (BEAKER) (test 33.2 GM/DL 32.3-36.5 qtft=058) RED CELL DISTRIBUTION WIDTH (BEAKER) (test 17.2 % 11.6-14.4 jccu=860) PLATELET COUNT (BEAKER) (test cwxv=771) 509 K/CU MM 150-450 MEAN PLATELET VOLUME (BEAKER) (test tbsp=947) 9.3 fL 9.4-12.4 NUCLEATED RED BLOOD CELLS (BEAKER) (test 0 /100 WBC 0-0 assd=848) BASIC METABOLIC [id number] 06:44:00 Test Item Value Reference Range Comments SODIUM (BEAKER) (test 137 meq/L 136-145 ofce=556) POTASSIUM (BEAKER) (test 4.6 meq/L 3.5-5.1 Specimen slightly csrl=393) hemolyzed CHLORIDE (BEAKER) (test 106 meq/L 98-107 isel=795) CO2 (BEAKER) (test 18 meq/L 22-29 ykfq=587) BLOOD UREA NITROGEN 5 mg/dL 7-21 (BEAKER) (test qzhe=900) CREATININE (BEAKER) (test 0.60 mg/dL 0.57-1.25 Specimen slightly jjfa=344) hemolyzed GLUCOSE RANDOM (BEAKER) 86 mg/dL 70-105 (test elkg=926) CALCIUM (BEAKER) (test 8.6 mg/dL 8.4-10.2 giay=725) EGFR (BEAKER) (test 134 mL/min/1.73 sq m ESTIMATED GFR IS NOT nweq=5963) ACCURATE CREATININE CLEARANCE IN PREDICTING GLOMERULAR FILTRATION RATE. ESTIMATED GFR IS NOT APPLICABLE FOR DIALYSIS PATIENTS. CBC W/PLT COUNT & AUTO [id number] 21:33:00 Test Item Value Reference Range Comments WHITE BLOOD CELL COUNT (BEAKER) (test smia=938) 8.3 K/ L 3.5-10.5 RED BLOOD CELL COUNT (BEAKER) (test casm=609) 3.00 M/ L 4.63-6.08 HEMOGLOBIN (BEAKER) (test fiwt=427) 9.6 GM/DL 13.7-17.5 HEMATOCRIT (BEAKER) (test osch=078) 29.5 % 40.1-51.0 MEAN CORPUSCULAR VOLUME (BEAKER) (test kfxq=906) 98.3 fL 79.0-92.2 MEAN CORPUSCULAR HEMOGLOBIN (BEAKER) (test 32.0 pg 25.7-32.2 pfiz=821) MEAN CORPUSCULAR HEMOGLOBIN CONC (BEAKER) (test 32.5 GM/DL 32.3-36.5 toqf=078) RED CELL DISTRIBUTION WIDTH (BEAKER) (test 17.3 % 11.6-14.4 yikv=568) PLATELET COUNT (BEAKER) (test nwtc=959) 434 K/CU MM 150-450 MEAN PLATELET VOLUME (BEAKER) (test selt=875) 9.4 fL 9.4-12.4 NUCLEATED RED BLOOD CELLS (BEAKER) (test 0 /100 WBC 0-0 oovn=852) NEUTROPHILS RELATIVE PERCENT (BEAKER) (test 54 % bbqf=764) LYMPHOCYTES RELATIVE PERCENT (BEAKER) (test 27 % gvaq=999) MONOCYTES RELATIVE PERCENT (BEAKER) (test 17 % jgjl=980) EOSINOPHILS RELATIVE PERCENT (BEAKER) (test 2 % foja=145) BASOPHILS RELATIVE PERCENT (BEAKER) (test 0 % eptd=554) NEUTROPHILS ABSOLUTE COUNT (BEAKER) (test 4.46 K/ L 1.78-5.38 ctlq=447) LYMPHOCYTES ABSOLUTE COUNT (BEAKER) (test 2.24 K/ L 1.32-3.57 eojn=905) MONOCYTES ABSOLUTE COUNT (BEAKER) (test 1.38 K/ L 0.30-0.82 nvph=193) EOSINOPHILS ABSOLUTE COUNT (BEAKER) (test 0.17 K/ L 0.04-0.54 tdik=264) BASOPHILS ABSOLUTE COUNT (BEAKER) (test 0.02 K/ L 0.01-0.08 hauz=741) IMMATURE GRANULOCYTES-RELATIVE PERCENT (BEAKER) 1 % 0-1 (test akoh=2247) [id number] 07:21:00 Test Item Value Reference Range Comments PHOSPHORUS (BEAKER) (test ljad=574) 3.6 mg/dL 2.3-4.7 [id number] 07:21:00 Test Item Value Reference Range Comments MAGNESIUM (BEAKER) (test hgiv=624) 1.9 mg/dL 1.6-2.6 COMPREHENSIVE METABOLIC [id number] 07:21:00 Test Item Value Reference Range Comments TOTAL PROTEIN (BEAKER) 6.2 gm/dL 6.0-8.3 (test gyrv=087) ALBUMIN (BEAKER) (test 3.0 g/dL 3.5-5.0 dhuz=6841) ALKALINE PHOSPHATASE 95 U/L 40-150 (BEAKER) (test sajb=291) BILIRUBIN TOTAL (BEAKER) 0.3 mg/dL 0.2-1.2 (test crcm=508) SODIUM (BEAKER) (test 137 meq/L 136-145 ievh=086) POTASSIUM (BEAKER) (test 3.9 meq/L 3.5-5.1 qgbh=589) CHLORIDE (BEAKER) (test 105 meq/L 98-107 opub=338) CO2 (BEAKER) (test 23 meq/L 22-29 pwsa=965) BLOOD UREA NITROGEN 6 mg/dL 7-21 (BEAKER) (test eena=046) CREATININE (BEAKER) (test 0.57 mg/dL 0.57-1.25 mjjh=489) GLUCOSE RANDOM (BEAKER) 89 mg/dL 70-105 (test ital=511) CALCIUM (BEAKER) (test 8.3 mg/dL 8.4-10.2 qwbs=423) AST (SGOT) (BEAKER) (test 25 U/L 5-34 exoi=080) ALT (SGPT) (BEAKER) (test 14 U/L 6-55 wupr=393) EGFR (BEAKER) (test 142 mL/min/1.73 sq ESTIMATED GFR IS NOT vjbk=6252) m ACCURATE CREATININE CLEARANCE IN PREDICTING GLOMERULAR FILTRATION RATE. ESTIMATED GFR IS NOT APPLICABLE FOR DIALYSIS PATIENTS. CBC (HEMOGRAM ONLY)2016-12-08 06:35:00 Test Item Value Reference Range Comments WHITE BLOOD CELL COUNT (BEAKER) (test raqk=841) 7.9 K/ L 3.5-10.5 RED BLOOD CELL COUNT (BEAKER) (test qvbt=324) 2.92 M/ L 4.63-6.08 HEMOGLOBIN (BEAKER) (test sjtn=341) 9.2 GM/DL 13.7-17.5 HEMATOCRIT (BEAKER) (test eiva=289) 28.4 % 40.1-51.0 MEAN CORPUSCULAR VOLUME (BEAKER) (test ydql=338) 97.3 fL 79.0-92.2 MEAN CORPUSCULAR HEMOGLOBIN (BEAKER) (test 31.5 pg 25.7-32.2 ygpc=547) MEAN CORPUSCULAR HEMOGLOBIN CONC (BEAKER) (test 32.4 GM/DL 32.3-36.5 nyvc=664) RED CELL DISTRIBUTION WIDTH (BEAKER) (test 17.0 % 11.6-14.4 ewjm=036) PLATELET COUNT (BEAKER) (test vwgv=871) 415 K/CU MM 150-450 MEAN PLATELET VOLUME (BEAKER) (test qmtp=393) 9.3 fL 9.4-12.4 NUCLEATED RED BLOOD CELLS (BEAKER) (test 0 /100 WBC 0-0 atcy=577) CBC (HEMOGRAM ONLY)2016-12-07 06:08:00 Test Item Value Reference Range Comments WHITE BLOOD CELL COUNT (BEAKER) (test bvxe=001) 7.7 K/ L 3.5-10.5 RED BLOOD CELL COUNT (BEAKER) (test rqha=179) 2.85 M/ L 4.63-6.08 HEMOGLOBIN (BEAKER) (test rsuc=873) 9.0 GM/DL 13.7-17.5 HEMATOCRIT (BEAKER) (test qtbb=081) 27.8 % 40.1-51.0 MEAN CORPUSCULAR VOLUME (BEAKER) (test cjwz=333) 97.5 fL 79.0-92.2 MEAN CORPUSCULAR HEMOGLOBIN (BEAKER) (test 31.6 pg 25.7-32.2 ndhc=289) MEAN CORPUSCULAR HEMOGLOBIN CONC (BEAKER) (test 32.4 GM/DL 32.3-36.5 scxh=154) RED CELL DISTRIBUTION WIDTH (BEAKER) (test 16.5 % 11.6-14.4 bjfk=442) PLATELET COUNT (BEAKER) (test tvoq=008) 399 K/CU MM 150-450 MEAN PLATELET VOLUME (BEAKER) (test nvim=283) 9.5 fL 9.4-12.4 NUCLEATED RED BLOOD CELLS (BEAKER) (test 0 /100 WBC 0-0 ljwe=162) PHENYTOIN LEVEL, TOTAL AND [id number] 01:14:00 Test Item Value Reference Range Comments PHENYTOIN (DILANTIN) (BEAKER) (test qejb=479) 22.9 ug/mL 10.0-20.0 PHENYTOIN FREE (BEAKER) (test njjt=307) 3.51 mcg/ml 1.00-2.00 VALPROIC ACID LEVEL, [id number] 20:49:00 Test Item Value Reference Range Comments VALPROIC ACID TOTAL (BEAKER) (test kstd=602) 33 ug/mL 50-100 Therapeutic range for some clinical conditions may be >100 ug/mLPOCT-GLUCOSE [id number] 17:10:00 Test Item Value Reference Range Comments POC-GLUCOSE METER (BEAKER) 108 mg/dL 70-[address] [facility] [address] [facility] (test jlzb=5258) [facility] [address] PHENYTOIN LEVEL, [id number] 12:29:00 Test Item Value Reference Range Comments PHENYTOIN (DILANTIN) (BEAKER) (test dzog=897) 16.3 ug/mL 10.0-20.0 CREATINE KINASE (CK), TOTAL AND [id number] 12:26:00 Test Item Value Reference Range Comments CREATINE KINASE TOTAL (BEAKER) (test aivn=135) 47 U/L 29-200 CREATINE KINASE-MB (BEAKER) (test qmox=301) 1.1 ng/mL 0.0-6.6 CREATINE KINASE-MB INDEX (BEAKER) (test yxyx=743) 2.3 % Effective 03/02/2014: CK-MB Reference Range ChangeNew: 0.0-6.6 Previous: 0.0- 4.9CK-MB Reference Range:<6.7 Normal6.7-10.0 Borderline>10.0 AbnormalTROPONIN [id number] 12:26:00 Test Item Value Reference Range Comments TROPONIN I (BEAKER) (test quup=228) 0.11 ng/mL 0.00-0.03 Effective 03/02/2014: Reference Range [...] renalfailure, acidosis, acute neurological disease, and persistent tachyarrhythmia.[id number] 12:17: 00 Test Item Value Reference Range Comments MAGNESIUM (BEAKER) (test qzch=746) 2.0 mg/dL 1.6-2.6 COMPREHENSIVE METABOLIC [id number] 12:17:00 Test Item Value Reference Range Comments TOTAL PROTEIN (BEAKER) 6.2 gm/dL 6.0-8.3 (test qwkz=143) ALBUMIN (BEAKER) (test 3.0 g/dL 3.5-5.0 dwlr=1566) ALKALINE PHOSPHATASE 101 U/L 40-150 (BEAKER) (test bcsx=730) BILIRUBIN TOTAL (BEAKER) 0.3 mg/dL 0.2-1.2 (test wmwt=809) SODIUM (BEAKER) (test 140 meq/L 136-145 xlhe=879) POTASSIUM (BEAKER) (test 4.6 meq/L 3.5-5.1 bxlb=309) CHLORIDE (BEAKER) (test 107 meq/L 98-107 wlls=883) CO2 (BEAKER) (test 24 meq/L 22-29 dbzd=050) BLOOD UREA NITROGEN 5 mg/dL 7-21 (BEAKER) (test ybnf=224) CREATININE (BEAKER) (test 0.62 mg/dL 0.57-1.25 tewp=310) GLUCOSE RANDOM (BEAKER) 111 mg/dL 70-105 (test erby=027) CALCIUM (BEAKER) (test 8.6 mg/dL 8.4-10.2 pncy=133) AST (SGOT) (BEAKER) (test 23 U/L 5-34 igyf=739) ALT (SGPT) (BEAKER) (test 15 U/L 6-55 sqqc=786) EGFR (BEAKER) (test 129 mL/min/1.73 sq ESTIMATED GFR IS NOT nbuk=3962) m ACCURATE CREATININE CLEARANCE IN PREDICTING GLOMERULAR FILTRATION RATE. ESTIMATED GFR IS NOT APPLICABLE FOR DIALYSIS PATIENTS. CBC W/PLT COUNT & AUTO [id number] 11:55:00 Test Item Value Reference Range Comments WHITE BLOOD CELL COUNT (BEAKER) (test efau=947) 7.5 K/ L 3.5-10.5 RED BLOOD CELL COUNT (BEAKER) (test suxc=731) 3.01 M/ L 4.63-6.08 HEMOGLOBIN (BEAKER) (test wkec=810) 9.5 GM/DL 13.7-17.5 HEMATOCRIT (BEAKER) (test gwdj=377) 29.3 % 40.1-51.0 MEAN CORPUSCULAR VOLUME (BEAKER) (test mapm=045) 97.3 fL 79.0-92.2 MEAN CORPUSCULAR HEMOGLOBIN (BEAKER) (test 31.6 pg 25.7-32.2 czxl=291) MEAN CORPUSCULAR HEMOGLOBIN CONC (BEAKER) (test 32.4 GM/DL 32.3-36.5 oewc=232) RED CELL DISTRIBUTION WIDTH (BEAKER) (test 16.4 % 11.6-14.4 cvil=142) PLATELET COUNT (BEAKER) (test iisw=056) 396 K/CU MM 150-450 MEAN PLATELET VOLUME (BEAKER) (test uyww=923) 9.6 fL 9.4-12.4 NUCLEATED RED BLOOD CELLS (BEAKER) (test 0 /100 WBC 0-0 xrks=025) NEUTROPHILS RELATIVE PERCENT (BEAKER) (test 65 % ilxu=607) LYMPHOCYTES RELATIVE PERCENT (BEAKER) (test 19 % qiak=216) MONOCYTES RELATIVE PERCENT (BEAKER) (test 13 % ysut=091) EOSINOPHILS RELATIVE PERCENT (BEAKER) (test 2 % ygvd=941) BASOPHILS RELATIVE PERCENT (BEAKER) (test 0 % huxo=197) NEUTROPHILS ABSOLUTE COUNT (BEAKER) (test 4.91 K/ L 1.78-5.38 tfzh=612) LYMPHOCYTES ABSOLUTE COUNT (BEAKER) (test 1.43 K/ L 1.32-3.57 adpo=117) MONOCYTES ABSOLUTE COUNT (BEAKER) (test 0.96 K/ L 0.30-0.82 mbgs=915) EOSINOPHILS ABSOLUTE COUNT (BEAKER) (test 0.11 K/ L 0.04-0.54 wghz=766) BASOPHILS ABSOLUTE COUNT (BEAKER) (test 0.02 K/ L 0.01-0.08 djgm=968) IMMATURE GRANULOCYTES-RELATIVE PERCENT (BEAKER) 1 % 0-1 (test uomc=7934) URINE [id number] 11:55:00 Test Item Value Reference Range Comments CULTURE (BEAKER) (test czgy=1364) No growth BLOOD GAS, [id number] 10:28:00 Test Item Value Reference Range Comments PH ARTERIAL (BEAKER) (test xayp=678) 7.51 7.35-7.45 PCO2 ARTERIAL (BEAKER) (test ebya=392) 32 mmHg 35-45 PO2 ARTERIAL (BEAKER) (test kidh=605) 118 mmHg 80-90 O2 SATURATION ARTERIAL (BEAKER) (test jiah=284) 98.7 % 96.0-97.0 HCO3 ARTERIAL (BEAKER) (test qtgm=867) 25 mmol/L 21-29 BASE EXCESS ARTERIAL (BEAKER) (test eywy=816) 2.1 mmol/L -2.0-3.0 PATIENT TEMPERATURE (BEAKER) (test rleh=1306) 36.6 C FIO2 (BEAKER) (test klzg=6935) 32.0 % POCT-GLUCOSE [id number] 09:53:00 Test Item Value Reference Range Comments POC-GLUCOSE METER (BEAKER) 184 mg/dL 70-110 TESTED AT [address] (test bxbw=5176) [facility] [id number] TROPONIN [id number] 22:44:00 Test Item Value Reference Range Comments TROPONIN I (BEAKER) (test qnkd=548) 0.14 ng/mL 0.00-0.03 Effective 03/02/2014: Reference Range [...] acidosis, acute neurological disease, and persistent tachyarrhythmia.TROPONIN [id number] 15:17: 00 Test Item Value Reference Range Comments TROPONIN I (BEAKER) (test swsa=029) 0.14 ng/mL 0.00-0.03 Effective 03/02/2014: Reference Range [...] and persistent tachyarrhythmia.CBC W/PLT COUNT & AUTO [id number] 14:44:00 Test Item Value Reference Range Comments WHITE BLOOD CELL COUNT (BEAKER) (test evyl=045) 7.7 K/ L 3.5-10.5 RED BLOOD CELL COUNT (BEAKER) (test ncgn=710) 2.98 M/ L 4.63-6.08 HEMOGLOBIN (BEAKER) (test fdss=961) 9.3 GM/DL 13.7-17.5 HEMATOCRIT (BEAKER) (test qhil=007) 28.7 % 40.1-51.0 MEAN CORPUSCULAR VOLUME (BEAKER) (test hgqi=991) 96.3 fL 79.0-92.2 MEAN CORPUSCULAR HEMOGLOBIN (BEAKER) (test 31.2 pg 25.7-32.2 kaht=063) MEAN CORPUSCULAR HEMOGLOBIN CONC (BEAKER) (test 32.4 GM/DL 32.3-36.5 dprh=018) RED CELL DISTRIBUTION WIDTH (BEAKER) (test 15.7 % 11.6-14.4 csjv=953) PLATELET COUNT (BEAKER) (test mhtt=041) 356 K/CU MM 150-450 MEAN PLATELET VOLUME (BEAKER) (test rdzl=889) 10.1 fL 9.4-12.4 NUCLEATED RED BLOOD CELLS (BEAKER) (test 1 /100 WBC 0-0 zecr=187) NEUTROPHILS RELATIVE PERCENT (BEAKER) (test 58 % ifgu=339) LYMPHOCYTES RELATIVE PERCENT (BEAKER) (test 24 % puip=945) MONOCYTES RELATIVE PERCENT (BEAKER) (test 16 % pqwx=574) EOSINOPHILS RELATIVE PERCENT (BEAKER) (test 1 % dseh=562) BASOPHILS RELATIVE PERCENT (BEAKER) (test 0 % nkce=252) NEUTROPHILS ABSOLUTE COUNT (BEAKER) (test 4.43 K/ L 1.78-5.38 aemu=531) LYMPHOCYTES ABSOLUTE COUNT (BEAKER) (test 1.85 K/ L 1.32-3.57 ksng=427) MONOCYTES ABSOLUTE COUNT (BEAKER) (test 1.22 K/ L 0.30-0.82 uodj=959) EOSINOPHILS ABSOLUTE COUNT (BEAKER) (test 0.11 K/ L 0.04-0.54 njoo=723) BASOPHILS ABSOLUTE COUNT (BEAKER) (test 0.02 K/ L 0.01-0.08 iacv=950) IMMATURE GRANULOCYTES-RELATIVE PERCENT (BEAKER) 1 % 0-1 (test dwbo=6802) (MANUAL DIFFERENTIAL)2016-12-05 14:44:00 Test Item Value Reference Range Comments TOTAL COUNTED (BEAKER) (test htku=9520) WBC MORPHOLOGY (BEAKER) (test mhdg=727) Normal PLT MORPHOLOGY (BEAKER) (test acys=945) Normal RBC MORPHOLOGY (BEAKER) (test wmwh=240) Normal [id number] 07:06:00 Test Item Value Reference Range Comments PHOSPHORUS (BEAKER) (test sqqu=727) 2.5 mg/dL 2.3-4.7 [id number] 07:06:00 Test Item Value Reference Range Comments MAGNESIUM (BEAKER) (test pvlo=467) 2.0 mg/dL 1.6-2.6 COMPREHENSIVE METABOLIC [id number] 07:06:00 Test Item Value Reference Range Comments TOTAL PROTEIN (BEAKER) 6.3 gm/dL 6.0-8.3 (test cciq=596) ALBUMIN (BEAKER) (test 3.1 g/dL 3.5-5.0 zjys=2715) ALKALINE PHOSPHATASE 108 U/L 40-150 (BEAKER) (test llon=640) BILIRUBIN TOTAL (BEAKER) 0.3 mg/dL 0.2-1.2 (test bhol=127) SODIUM (BEAKER) (test 139 meq/L 136-145 pdax=089) POTASSIUM (BEAKER) (test 4.7 meq/L 3.5-5.1 oqgp=121) CHLORIDE (BEAKER) (test 107 meq/L 98-107 qiux=374) CO2 (BEAKER) (test 25 meq/L 22-29 lhcs=246) BLOOD UREA NITROGEN 6 mg/dL 7-21 (BEAKER) (test ejhl=533) CREATININE (BEAKER) (test 0.57 mg/dL 0.57-1.25 onch=701) GLUCOSE RANDOM (BEAKER) 98 mg/dL 70-105 (test vqxg=219) CALCIUM (BEAKER) (test 8.8 mg/dL 8.4-10.2 zkks=098) AST (SGOT) (BEAKER) (test 25 U/L 5-34 wtbk=304) ALT (SGPT) (BEAKER) (test 19 U/L 6-55 dtun=302) EGFR (BEAKER) (test 142 mL/min/1.73 sq ESTIMATED GFR IS NOT ycma=6259) m ACCURATE CREATININE CLEARANCE IN PREDICTING GLOMERULAR FILTRATION RATE. ESTIMATED GFR IS NOT APPLICABLE FOR DIALYSIS PATIENTS. PROTHROMBIN TIME/[id number] 06:40:00 Test Item Value Reference Range Comments PROTIME (BEAKER) (test yfzv=157) 12.5 seconds 11.7-14.7 INR (BEAKER) (test ciww=767) 1.0 <=5.9 RECOMMENDED COUMADIN/WARFARIN INR THERAPY RANGESSTANDARD DOSE: 2.0 - 3.0 Includes: PROPHYLAXIS forvenous thrombosis, systemic embolization; TREATMENT for venous thrombosis and/or pulmonary embolus.HIGH RISK: Target INR is 2.5-3.5 for patients with mechanical heart valves.URINALYSIS W/ [id number] 06 :18:00 Test Item Value Reference Range Comments COLOR (BEAKER) (test bykh=268) Yellow CLARITY (BEAKER) (test loha=256) Clear SPECIFIC GRAVITY UA (BEAKER) (test lafi=537) 1.010 1.001-1.035 PH UA (BEAKER) (test osma=104) 8.0 5.0-8.0 PROTEIN UA (BEAKER) (test puuj=318) Negative Negative GLUCOSE UA (BEAKER) (test cvhf=821) Negative Negative KETONES UA (BEAKER) (test kdmz=166) 10 mg/dL Negative BILIRUBIN UA (BEAKER) (test zivp=631) Negative Negative BLOOD UA (BEAKER) (test gvlp=712) Negative Negative NITRITE UA (BEAKER) (test fbhb=647) Negative Negative LEUKOCYTE ESTERASE UA (BEAKER) (test cmxz=911) Negative Negative UROBILINOGEN UA (BEAKER) (test mcsd=323) 3.0 mg/dL 0.2-1.0 RBC UA (BEAKER) (test nqvz=877) 0 /HPF WBC UA (BEAKER) (test jyjg=895) < /HPF SQUAMOUS EPITHELIAL (BEAKER) (test hrnj=985) < /HPF SOURCE(BEAKER) (test nonz=9604) Urine, Voided COMPREHENSIVE METABOLIC [id number] 05:47:00 Test Item Value Reference Range Comments TOTAL PROTEIN (BEAKER) 5.5 gm/dL 6.0-8.3 (test uaas=943) ALBUMIN (BEAKER) (test 2.7 g/dL 3.5-5.0 sjli=5248) ALKALINE PHOSPHATASE 97 U/L 40-150 (BEAKER) (test igww=854) BILIRUBIN TOTAL (BEAKER) 0.3 mg/dL 0.2-1.2 (test vevx=906) SODIUM (BEAKER) (test 140 meq/L 136-145 wbxv=357) POTASSIUM (BEAKER) (test 3.4 meq/L 3.5-5.1 payu=612) CHLORIDE (BEAKER) (test 105 meq/L 98-107 wepn=118) CO2 (BEAKER) (test 26 meq/L 22-29 noif=103) BLOOD UREA NITROGEN 7 mg/dL 7-21 (BEAKER) (test jbwx=432) CREATININE (BEAKER) (test 0.50 mg/dL 0.57-1.25 aoum=388) GLUCOSE RANDOM (BEAKER) 96 mg/dL 70-105 (test vedk=035) CALCIUM (BEAKER) (test 8.1 mg/dL 8.4-10.2 afwx=923) AST (SGOT) (BEAKER) (test 27 U/L 5-34 onfy=317) ALT (SGPT) (BEAKER) (test 19 U/L 6-55 paym=152) EGFR (BEAKER) (test 165 mL/min/1.73 sq ESTIMATED GFR IS NOT jrqb=5236) m ACCURATE CREATININE CLEARANCE IN PREDICTING GLOMERULAR FILTRATION RATE. ESTIMATED GFR IS NOT APPLICABLE FOR DIALYSIS PATIENTS. CBC (HEMOGRAM ONLY)2016-12-04 05:45:00 Test Item Value Reference Range Comments WHITE BLOOD CELL COUNT (BEAKER) (test exkk=540) 6.9 K/ L 3.5-10.5 RED BLOOD CELL COUNT (BEAKER) (test wnfo=732) 2.72 M/ L 4.63-6.08 HEMOGLOBIN (BEAKER) (test xjmt=309) 8.6 GM/DL 13.7-17.5 HEMATOCRIT (BEAKER) (test utcm=100) 25.5 % 40.1-51.0 MEAN CORPUSCULAR VOLUME (BEAKER) (test grcw=556) 93.8 fL 79.0-92.2 MEAN CORPUSCULAR HEMOGLOBIN (BEAKER) (test 31.6 pg 25.7-32.2 hafg=793) MEAN CORPUSCULAR HEMOGLOBIN CONC (BEAKER) (test 33.7 GM/DL 32.3-36.5 hlcw=665) RED CELL DISTRIBUTION WIDTH (BEAKER) (test 15.0 % 11.6-14.4 tcea=813) PLATELET COUNT (BEAKER) (test wbne=930) 272 K/CU MM 150-450 MEAN PLATELET VOLUME (BEAKER) (test zraq=125) 10.4 fL 9.4-12.4 NUCLEATED RED BLOOD CELLS (BEAKER) (test 0 /100 WBC 0-0 ffdm=140) COMPREHENSIVE METABOLIC [id number] 10:08:00 Test Item Value Reference Range Comments TOTAL PROTEIN (BEAKER) 5.8 gm/dL 6.0-8.3 (test xtds=523) ALBUMIN (BEAKER) (test 2.8 g/dL 3.5-5.0 yopa=4114) ALKALINE PHOSPHATASE 94 U/L 40-150 (BEAKER) (test vtcn=450) BILIRUBIN TOTAL (BEAKER) 0.3 mg/dL 0.2-1.2 (test dplc=438) SODIUM (BEAKER) (test 138 meq/L 136-145 dpto=505) POTASSIUM (BEAKER) (test 3.6 meq/L 3.5-5.1 cpxd=902) CHLORIDE (BEAKER) (test 103 meq/L 98-107 wldt=942) CO2 (BEAKER) (test 26 meq/L 22-29 jyxe=592) BLOOD UREA NITROGEN 14 mg/dL 7-21 (BEAKER) (test ftaw=788) CREATININE (BEAKER) (test 0.54 mg/dL 0.57-1.25 tolz=642) GLUCOSE RANDOM (BEAKER) 86 mg/dL 70-105 (test mzrf=639) CALCIUM (BEAKER) (test 8.2 mg/dL 8.4-10.2 akok=139) AST (SGOT) (BEAKER) (test 35 U/L 5-34 qrqz=758) ALT (SGPT) (BEAKER) (test 24 U/L 6-55 oybl=770) EGFR (BEAKER) (test 151 mL/min/1.73 sq ESTIMATED GFR IS NOT iiyg=5322) m ACCURATE CREATININE CLEARANCE IN PREDICTING GLOMERULAR FILTRATION RATE. ESTIMATED GFR IS NOT APPLICABLE FOR DIALYSIS PATIENTS. CBC (HEMOGRAM ONLY)2016-12-03 09:38:00 Test Item Value Reference Range Comments WHITE BLOOD CELL COUNT (BEAKER) (test tesv=741) 6.5 K/ L 3.5-10.5 RED BLOOD CELL COUNT (BEAKER) (test eblg=071) 2.54 M/ L 4.63-6.08 HEMOGLOBIN (BEAKER) (test qnni=290) 8.1 GM/DL 13.7-17.5 HEMATOCRIT (BEAKER) (test mnwj=326) 24.4 % 40.1-51.0 MEAN CORPUSCULAR VOLUME (BEAKER) (test bizq=204) 96.1 fL 79.0-92.2 MEAN CORPUSCULAR HEMOGLOBIN (BEAKER) (test 31.9 pg 25.7-32.2 txje=915) MEAN CORPUSCULAR HEMOGLOBIN CONC (BEAKER) (test 33.2 GM/DL 32.3-36.5 qakg=997) RED CELL DISTRIBUTION WIDTH (BEAKER) (test 15.1 % 11.6-14.4 oaiy=665) PLATELET COUNT (BEAKER) (test zumx=352) 233 K/CU MM 150-450 MEAN PLATELET VOLUME (BEAKER) (test thee=775) 10.8 fL 9.4-12.4 NUCLEATED RED BLOOD CELLS (BEAKER) (test 0 /100 WBC 0-0 rpju=879) POCT-GLUCOSE [id number] 12:08:00 Test Item Value Reference Range Comments POC-GLUCOSE METER (BEAKER) 111 mg/dL 70-[address] [facility] [address] [facility] (test nlqw=2513) [facility] [address] POCT-GLUCOSE [id number] 08:40:00 Test Item Value Reference Range Comments POC-GLUCOSE METER (BEAKER) 184 mg/dL 70-[address] [facility] [address] (test yhhf=8298) [facility] [address] [id number] 05:57:00 Test Item Value Reference Range Comments MAGNESIUM (BEAKER) (test pnco=628) 2.1 mg/dL 1.6-2.6 BASIC METABOLIC [id number] 05:57:00 Test Item Value Reference Range Comments SODIUM (BEAKER) (test 139 meq/L 136-145 shpe=730) POTASSIUM (BEAKER) (test 3.4 meq/L 3.5-5.1 jidt=219) CHLORIDE (BEAKER) (test 102 meq/L 98-107 khtg=989) CO2 (BEAKER) (test 26 meq/L 22-29 gyoz=138) BLOOD UREA NITROGEN 15 mg/dL 7-21 (BEAKER) (test ixpw=923) CREATININE (BEAKER) (test 0.62 mg/dL 0.57-1.25 dttj=933) GLUCOSE RANDOM (BEAKER) 104 mg/dL 70-105 (test cqat=466) CALCIUM (BEAKER) (test 8.8 mg/dL 8.4-10.2 mirc=215) EGFR (BEAKER) (test 129 mL/min/1.73 sq m ESTIMATED GFR IS NOT cnwj=8527) ACCURATE CREATININE CLEARANCE IN PREDICTING GLOMERULAR FILTRATION RATE. ESTIMATED GFR IS NOT APPLICABLE FOR DIALYSIS PATIENTS. CBC (HEMOGRAM ONLY)2016-12-02 05:25:00 Test Item Value Reference Range Comments WHITE BLOOD CELL COUNT (BEAKER) (test kmlk=938) 8.2 K/ L 3.5-10.5 RED BLOOD CELL COUNT (BEAKER) (test lmtn=995) 2.68 M/ L 4.63-6.08 HEMOGLOBIN (BEAKER) (test scck=262) 8.6 GM/DL 13.7-17.5 HEMATOCRIT (BEAKER) (test zkdz=885) 24.7 % 40.1-51.0 MEAN CORPUSCULAR VOLUME (BEAKER) (test lubt=633) 92.2 fL 79.0-92.2 MEAN CORPUSCULAR HEMOGLOBIN (BEAKER) (test 32.1 pg 25.7-32.2 fuka=096) MEAN CORPUSCULAR HEMOGLOBIN CONC (BEAKER) (test 34.8 GM/DL 32.3-36.5 mrbs=035) RED CELL DISTRIBUTION WIDTH (BEAKER) (test 15.0 % 11.6-14.4 nqmf=993) PLATELET COUNT (BEAKER) (test tmaw=302) 226 K/CU MM 150-450 MEAN PLATELET VOLUME (BEAKER) (test rfoi=624) 10.7 fL 9.4-12.4 NUCLEATED RED BLOOD CELLS (BEAKER) (test 0 /100 WBC 0-0 xyzp=164) POCT-GLUCOSE [id number] 21:18:00 Test Item Value Reference Range Comments POC-GLUCOSE METER (BEAKER) 118 mg/dL 70-110 TESTED AT [address] (test asrl=7693) [place] [address] POCT-GLUCOSE [id number] 17:33:00 Test Item Value Reference Range Comments POC-GLUCOSE METER (BEAKER) 102 mg/dL 70-110 TESTED AT [address] (test qsvw=4453) [place] [address] POCT-GLUCOSE [id number] 12:06:00 Test Item Value Reference Range Comments POC-GLUCOSE METER (BEAKER) 188 mg/dL 70-110 TESTED AT [address] (test trkb=2777) [place] [address] POCT-GLUCOSE [id number] 08:31:00 Test Item Value Reference Range Comments POC-GLUCOSE METER (BEAKER) 109 mg/dL 70-110 TESTED AT [address] (test hkoi=2235) [place] [address] [id number] 06:07:00 Test Item Value Reference Range Comments MAGNESIUM (BEAKER) (test ukrk=508) 2.0 mg/dL 1.6-2.6 BASIC METABOLIC [id number] 06:07:00 Test Item Value Reference Range Comments SODIUM (BEAKER) (test 139 meq/L 136-145 iiko=502) POTASSIUM (BEAKER) (test 3.6 meq/L 3.5-5.1 yfvu=823) CHLORIDE (BEAKER) (test 104 meq/L 98-107 czwr=700) CO2 (BEAKER) (test 27 meq/L 22-29 lodd=375) BLOOD UREA NITROGEN 15 mg/dL 7-21 (BEAKER) (test sxxp=460) CREATININE (BEAKER) (test 0.60 mg/dL 0.57-1.25 oqfi=624) GLUCOSE RANDOM (BEAKER) 104 mg/dL 70-105 (test dsbr=048) CALCIUM (BEAKER) (test 9.0 mg/dL 8.4-10.2 jftc=958) EGFR (BEAKER) (test 134 mL/min/1.73 sq m ESTIMATED GFR IS NOT uztv=9653) ACCURATE CREATININE CLEARANCE IN PREDICTING GLOMERULAR FILTRATION RATE. ESTIMATED GFR IS NOT APPLICABLE FOR DIALYSIS PATIENTS. PT/[id number] 05:40:00 Test Item Value Reference Range Comments PROTIME (BEAKER) (test rlpw=075) 14.1 seconds 11.7-14.7 INR (BEAKER) (test nrzh=279) 1.1 <=5.9 PARTIAL THROMBOPLASTIN TIME (BEAKER) (test 46.2 seconds 22.5-36.0 alcl=646) RECOMMENDED COUMADIN/WARFARIN INR THERAPY RANGESSTANDARD DOSE: 2.0 - 3.0 Includes: PROPHYLAXIS forvenous thrombosis, systemic embolization; TREATMENT for venous thrombosis and/or pulmonary embolus.HIGH RISK: Target INR is 2.5-3.5 for patients with mechanical heart valves.CBC (HEMOGRAM ONLY)2016-12-01 05:18:00 Test Item Value Reference Range Comments WHITE BLOOD CELL COUNT (BEAKER) (test bqmn=418) 9.1 K/ L 3.5-10.5 RED BLOOD CELL COUNT (BEAKER) (test jrrb=121) 2.69 M/ L 4.63-6.08 HEMOGLOBIN (BEAKER) (test ftvt=868) 8.5 GM/DL 13.7-17.5 HEMATOCRIT (BEAKER) (test dxun=782) 25.6 % 40.1-51.0 MEAN CORPUSCULAR VOLUME (BEAKER) (test wcws=438) 95.2 fL 79.0-92.2 MEAN CORPUSCULAR HEMOGLOBIN (BEAKER) (test 31.6 pg 25.7-32.2 finn=867) MEAN CORPUSCULAR HEMOGLOBIN CONC (BEAKER) (test 33.2 GM/DL 32.3-36.5 occu=501) RED CELL DISTRIBUTION WIDTH (BEAKER) (test 15.0 % 11.6-14.4 yzxt=394) PLATELET COUNT (BEAKER) (test vixs=781) 190 K/CU MM 150-450 MEAN PLATELET VOLUME (BEAKER) (test jafe=129) 10.7 fL 9.4-12.4 NUCLEATED RED BLOOD CELLS (BEAKER) (test 0 /100 WBC 0-0 xyqs=372) POCT-GLUCOSE [id number] 21:01:00 Test Item Value Reference Range Comments POC-GLUCOSE METER (BEAKER) 118 mg/dL 70-110 TESTED AT [address] (test rwii=1983) [place] [address] POCT-GLUCOSE [id number] 18:51:00 Test Item Value Reference Range Comments POC-GLUCOSE METER (BEAKER) 117 mg/dL 70-110 TESTED AT [address] (test fbku=6570) [place] [id number] POCT-GLUCOSE [id number] 14:02:00 Test Item Value Reference Range Comments POC-GLUCOSE METER (BEAKER) 129 mg/dL 70-110 TESTED AT [address] (test wwke=3990) [place] [address] [id number] 04:19:00 Test Item Value Reference Range Comments MAGNESIUM (BEAKER) (test khum=671) 1.8 mg/dL 1.6-2.6 BASIC METABOLIC [id number] 04:19:00 Test Item Value Reference Range Comments SODIUM (BEAKER) (test 138 meq/L 136-145 uvca=793) POTASSIUM (BEAKER) (test 4.0 meq/L 3.5-5.1 yzgd=938) CHLORIDE (BEAKER) (test 107 meq/L 98-107 puil=693) CO2 (BEAKER) (test 23 meq/L 22-29 vxmn=062) BLOOD UREA NITROGEN 8 mg/dL 7-21 (BEAKER) (test euji=034) CREATININE (BEAKER) (test 0.55 mg/dL 0.57-1.25 stwv=971) GLUCOSE RANDOM (BEAKER) 119 mg/dL 70-105 (test hqfn=506) CALCIUM (BEAKER) (test 8.8 mg/dL 8.4-10.2 gicg=080) EGFR (BEAKER) (test 148 mL/min/1.73 sq m ESTIMATED GFR IS NOT yufi=7237) ACCURATE CREATININE CLEARANCE IN PREDICTING GLOMERULAR FILTRATION RATE. ESTIMATED GFR IS NOT APPLICABLE FOR DIALYSIS PATIENTS. [id number] 04:13:00 Test Item Value Reference Range Comments PROTIME (BEAKER) (test hvzq=340) 14.9 seconds 11.7-14.7 INR (BEAKER) (test wkqt=870) 1.2 <=5.9 PARTIAL THROMBOPLASTIN TIME (BEAKER) (test 42.4 seconds 22.5-36.0 loxv=494) RECOMMENDED COUMADIN/WARFARIN INR THERAPY RANGESSTANDARD DOSE: 2.0 - 3.0 Includes: PROPHYLAXIS forvenous thrombosis, systemic embolization; TREATMENT for venous thrombosis and/or pulmonary embolus.HIGH RISK: Target INR is 2.5-3.5 for patients with mechanical heart valves.Prior to initiating heparinPrior to initiating [id number] 04:13:00 Test Item Value Reference Range Comments PARTIAL THROMBOPLASTIN TIME (BEAKER) (test 42.4 seconds 22.5-36.0 nsst=436) LACTIC ACID, ARTERIAL, WHOLE [id number] 04:09:00 Test Item Value Reference Range Comments LACTATE BLOOD ARTERIAL (2) (BEAKER) (test 1.1 mmol/L 0.5-2.2 apjs=5583) Effective 08/17/2015: Units/Reference Range ChangeNew: 0.5-2.2 mmol/L Previous: 5 -20 mg/dLCBC (HEMOGRAM ONLY)2016-11-30 04:03:00 Test Item Value Reference Range Comments WHITE BLOOD CELL COUNT (BEAKER) (test dowg=159) 10.5 K/ L 3.5-10.5 RED BLOOD CELL COUNT (BEAKER) (test xlhd=516) 2.93 M/ L 4.63-6.08 HEMOGLOBIN (BEAKER) (test hmst=195) 9.4 GM/DL 13.7-17.5 HEMATOCRIT (BEAKER) (test cylw=823) 27.5 % 40.1-51.0 MEAN CORPUSCULAR VOLUME (BEAKER) (test mxjp=707) 93.9 fL 79.0-92.2 MEAN CORPUSCULAR HEMOGLOBIN (BEAKER) (test 32.1 pg 25.7-32.2 aiqz=286) MEAN CORPUSCULAR HEMOGLOBIN CONC (BEAKER) (test 34.2 GM/DL 32.3-36.5 ppri=835) RED CELL DISTRIBUTION WIDTH (BEAKER) (test 15.3 % 11.6-14.4 zukc=825) PLATELET COUNT (BEAKER) (test ttix=251) 189 K/CU MM 150-450 MEAN PLATELET VOLUME (BEAKER) (test brnj=319) 10.8 fL 9.4-12.4 NUCLEATED RED BLOOD CELLS (BEAKER) (test 0 /100 WBC 0-0 apco=168) CALCIUM, [id number] 03:54:00 Test Item Value Reference Range Comments CALCIUM IONIZED (BEAKER) (test ryxc=277) 1.14 mmol/L 1.12-1.27 PH, BLOOD (BEAKER) (test cmcm=6306) 7.49 BLOOD GAS, [id number] 03:54:00 Test Item Value Reference Range Comments PH ARTERIAL (BEAKER) (test ahvo=105) 7.48 7.35-7.45 PCO2 ARTERIAL (BEAKER) (test ihed=569) 36 mmHg 35-45 PO2 ARTERIAL (BEAKER) (test dccc=069) 81 mmHg 80-90 O2 SATURATION ARTERIAL (BEAKER) (test vwiz=698) 96.4 % 96.0-97.0 HCO3 ARTERIAL (BEAKER) (test qtcu=470) 26 mmol/L 21-29 BASE EXCESS ARTERIAL (BEAKER) (test wltx=461) 2.5 mmol/L -2.0-3.0 PATIENT TEMPERATURE (BEAKER) (test inwf=5720) 37.6 C FIO2 (BEAKER) (test bttq=3259) 36.0 % POCT-GLUCOSE [id number] 17:32:00 Test Item Value Reference Range Comments POC-GLUCOSE METER (BEAKER) 121 mg/dL 70-[address] [facility] [address] [facility] (test kfma=6381) [facility] [address] PLATELET AGGREGATION: FUNCTION [id number] 14:46:00 Test Item Value Reference Range Comments WEAK ADP RESULT(BEAKER) (test 82 % 60-91 uypp=2029) PLATELET FUNCTION SCREEN 60-100% indicates normal INTERP (BEAKER) (test platelet function yyil=8206) [id number] (BEAKER) Mari Phelan MD (electronic (test sarc=7859) signature) PLATELET COUNT AGG (BEAKER) 221 K/CU MM 150-450 (test ctza=2446) POCT-GLUCOSE [id number] 12:58:00 Test Item Value Reference Range Comments POC-GLUCOSE METER (BEAKER) 129 mg/dL 70-110 TESTED AT [address] (test okaf=5792) [place] [address] HEMOGLOBIN [id number] 09:09:00 Test Item Value Reference Range Comments HEMOGLOBIN A1C (BEAKER) (test xbbc=488) 5.1 % 4.3-6.1 BLOOD GAS, [id number] 06:57:00 Test Item Value Reference Range Comments PH ARTERIAL (BEAKER) (test nesv=057) 7.46 7.35-7.45 PCO2 ARTERIAL (BEAKER) (test ymzv=732) 35 mmHg 35-45 PO2 ARTERIAL (BEAKER) (test bpjs=091) 130 mmHg 80-90 O2 SATURATION ARTERIAL (BEAKER) (test fkxe=478) 98.7 % 96.0-97.0 HCO3 ARTERIAL (BEAKER) (test oebt=328) 24 mmol/L 21-29 BASE EXCESS ARTERIAL (BEAKER) (test zdxm=165) 1.1 mmol/L -2.0-3.0 PATIENT TEMPERATURE (BEAKER) (test erce=8045) 37.8 C FIO2 (BEAKER) (test swqu=3417) 40.0 % POCT-GLUCOSE [id number] 06:01:00 Test Item Value Reference Range Comments POC-GLUCOSE METER (BEAKER) 154 mg/dL 70-110 TESTED AT [address] (test ihie=6972) [place] [address] [id number] 05:02:00 Test Item Value Reference Range Comments MAGNESIUM (BEAKER) (test asyx=779) 2.0 mg/dL 1.6-2.6 BASIC METABOLIC [id number] 05:02:00 Test Item Value Reference Range Comments SODIUM (BEAKER) (test 140 meq/L 136-145 nbru=907) POTASSIUM (BEAKER) (test 4.2 meq/L 3.5-5.1 rxgk=745) CHLORIDE (BEAKER) (test 109 meq/L 98-107 qafh=588) CO2 (BEAKER) (test 23 meq/L 22-29 abhz=109) BLOOD UREA NITROGEN 7 mg/dL 7-21 (BEAKER) (test zcmw=346) CREATININE (BEAKER) (test 0.62 mg/dL 0.57-1.25 lmil=122) GLUCOSE RANDOM (BEAKER) 153 mg/dL 70-105 (test rfln=007) CALCIUM (BEAKER) (test 8.4 mg/dL 8.4-10.2 smvj=328) EGFR (BEAKER) (test 129 mL/min/1.73 sq m ESTIMATED GFR IS NOT qzvr=3859) ACCURATE CREATININE CLEARANCE IN PREDICTING GLOMERULAR FILTRATION RATE. ESTIMATED GFR IS NOT APPLICABLE FOR DIALYSIS PATIENTS. [id number] 04:56:00 Test Item Value Reference Range Comments PROTIME (BEAKER) (test uwpy=754) 13.9 seconds 11.7-14.7 INR (BEAKER) (test rlcr=841) 1.1 <=5.9 PARTIAL THROMBOPLASTIN TIME (BEAKER) (test 36.5 seconds 22.5-36.0 laza=317) RECOMMENDED COUMADIN/WARFARIN INR THERAPY RANGESSTANDARD DOSE: 2.0 - 3.0 Includes: PROPHYLAXIS forvenous thrombosis, systemic embolization; TREATMENT for venous thrombosis and/or pulmonary embolus.HIGH RISK: Target INR is 2.5-3.5 for patients with mechanical heart valves.CBC W/PLT COUNT & AUTO [id number] 04:54:00 Test Item Value Reference Range Comments WHITE BLOOD CELL COUNT (BEAKER) (test flzy=914) 8.8 K/ L 3.5-10.5 RED BLOOD CELL COUNT (BEAKER) (test qfhl=759) 3.28 M/ L 4.63-6.08 HEMOGLOBIN (BEAKER) (test jdce=596) 10.5 GM/DL 13.7-17.5 HEMATOCRIT (BEAKER) (test sift=276) 30.8 % 40.1-51.0 MEAN CORPUSCULAR VOLUME (BEAKER) (test wflb=150) 93.9 fL 79.0-92.2 MEAN CORPUSCULAR HEMOGLOBIN (BEAKER) (test 32.0 pg 25.7-32.2 ldnh=214) MEAN CORPUSCULAR HEMOGLOBIN CONC (BEAKER) (test 34.1 GM/DL 32.3-36.5 yylg=384) RED CELL DISTRIBUTION WIDTH (BEAKER) (test 15.7 % 11.6-14.4 aeag=721) PLATELET COUNT (BEAKER) (test rfck=344) 219 K/CU MM 150-450 MEAN PLATELET VOLUME (BEAKER) (test ibvp=552) 11.0 fL 9.4-12.4 NUCLEATED RED BLOOD CELLS (BEAKER) (test 0 /100 WBC 0-0 exyj=113) NEUTROPHILS RELATIVE PERCENT (BEAKER) (test 74 % deez=342) LYMPHOCYTES RELATIVE PERCENT (BEAKER) (test 7 % oktn=693) MONOCYTES RELATIVE PERCENT (BEAKER) (test 19 % ulrn=381) EOSINOPHILS RELATIVE PERCENT (BEAKER) (test 0 % juwk=394) BASOPHILS RELATIVE PERCENT (BEAKER) (test 0 % mjti=024) NEUTROPHILS ABSOLUTE COUNT (BEAKER) (test 6.45 K/ L 1.78-5.38 cniu=009) LYMPHOCYTES ABSOLUTE COUNT (BEAKER) (test 0.63 K/ L 1.32-3.57 vstp=206) MONOCYTES ABSOLUTE COUNT (BEAKER) (test 1.64 K/ L 0.30-0.82 vedq=235) EOSINOPHILS ABSOLUTE COUNT (BEAKER) (test 0.01 K/ L 0.04-0.54 kmpe=389) BASOPHILS ABSOLUTE COUNT (BEAKER) (test 0.03 K/ L 0.01-0.08 eouy=945) IMMATURE GRANULOCYTES-RELATIVE PERCENT (BEAKER) 0 % 0-1 (test vljy=4275) LACTIC ACID, ARTERIAL, WHOLE [id number] 04:39:00 Test Item Value Reference Range Comments LACTATE BLOOD ARTERIAL (2) (BEAKER) (test 1.2 mmol/L 0.5-2.2 yqrm=0502) Effective 08/17/2015: Units/Reference Range ChangeNew: 0.5-2.2 mmol/L Previous: 5 -20 mg/dLCALCIUM, [id number] 04:11:00 Test Item Value Reference Range Comments CALCIUM IONIZED (BEAKER) (test lxyv=522) 1.17 mmol/L 1.12-1.27 PH, BLOOD (BEAKER) (test sagt=1249) 7.44 BLOOD GAS, [id number] 04:11:00 Test Item Value Reference Range Comments PH ARTERIAL (BEAKER) (test hefp=964) 7.42 7.35-7.45 PCO2 ARTERIAL (BEAKER) (test emsa=802) 39 mmHg 35-45 PO2 ARTERIAL (BEAKER) (test vfhw=096) 110 mmHg 80-90 O2 SATURATION ARTERIAL (BEAKER) (test rznz=194) 97.9 % 96.0-97.0 HCO3 ARTERIAL (BEAKER) (test yimu=636) 25 mmol/L 21-29 BASE EXCESS ARTERIAL (BEAKER) (test tryg=648) 0.6 mmol/L -2.0-3.0 PATIENT TEMPERATURE (BEAKER) (test qjjb=1837) 38.2 C FIO2 (BEAKER) (test ybrn=0100) 40.0 % OXYGEN SATURATION, [id number] 04:09:00 Test Item Value Reference Range Comments O2 SATURATION (MEASURED) (BEAKER) (test gbww=4692) 80.7 % POCT-GLUCOSE [id number] 02:46:00 Test Item Value Reference Range Comments POC-GLUCOSE METER (BEAKER) 150 mg/dL 70-110 TESTED AT [address] (test lzme=1261) [facility] [address] POCT-GLUCOSE [id number] 18:29:00 Test Item Value Reference Range Comments POC-GLUCOSE METER (BEAKER) 111 mg/dL 70-110 TESTED AT [address] (test qvfv=9831) [facility] [address] [id number] 16:27:00 Test Item Value Reference Range Comments POTASSIUM (BEAKER) (test hdzb=422) 4.2 meq/L 3.5-5.1 [id number] 16:27:00 Test Item Value Reference Range Comments MAGNESIUM (BEAKER) (test mvqp=592) 2.1 mg/dL 1.6-2.6 [id number] 16:27:00 Test Item Value Reference Range Comments SODIUM (BEAKER) (test fntc=894) 141 meq/L 136-145 BASIC METABOLIC [id number] 16:27:00 Test Item Value Reference Range Comments SODIUM (BEAKER) (test 141 meq/L 136-145 pymg=698) POTASSIUM (BEAKER) (test 4.2 meq/L 3.5-5.1 sjvr=869) CHLORIDE (BEAKER) (test 112 meq/L 98-107 rqtt=535) CO2 (BEAKER) (test 21 meq/L 22-29 vnlv=082) BLOOD UREA NITROGEN 8 mg/dL 7-21 (BEAKER) (test ghlc=934) CREATININE (BEAKER) (test 0.61 mg/dL 0.57-1.25 gkdp=521) GLUCOSE RANDOM (BEAKER) 167 mg/dL 70-105 (test knsv=324) CALCIUM (BEAKER) (test 8.5 mg/dL 8.4-10.2 debr=304) EGFR (BEAKER) (test 131 mL/min/1.73 sq m ESTIMATED GFR IS NOT xuui=3186) ACCURATE CREATININE CLEARANCE IN PREDICTING GLOMERULAR FILTRATION RATE. ESTIMATED GFR IS NOT APPLICABLE FOR DIALYSIS PATIENTS. LACTIC ACID, ARTERIAL, WHOLE [id number] 16:23:00 Test Item Value Reference Range Comments LACTATE BLOOD ARTERIAL (2) 1.8 mmol/L 0.5-2.2 Specimen slightly hemolyzed (BEAKER) (test rawa=3504) Effective 08/17/2015: Units/Reference Range ChangeNew: 0.5-2.2 mmol/L Previous: 5 -20 mg/dLPT/[id number] 16:18:00 Test Item Value Reference Range Comments PROTIME (BEAKER) (test isdi=780) 14.2 seconds 11.7-14.7 INR (BEAKER) (test lkhe=022) 1.1 <=5.9 PARTIAL THROMBOPLASTIN TIME (BEAKER) (test 35.0 seconds 22.5-36.0 hlqo=745) RECOMMENDED COUMADIN/WARFARIN INR THERAPY RANGESSTANDARD DOSE: 2.0 - 3.0 Includes: PROPHYLAXIS forvenous thrombosis, systemic embolization; TREATMENT for venous thrombosis and/or pulmonary embolus.HIGH RISK: Target INR is 2.5-3.5 for patients with mechanical heart valves.HEMOGLOBIN AND [id number] 16 :10:00 Test Item Value Reference Range Comments HEMOGLOBIN (BEAKER) (test agvv=639) 10.0 GM/DL 13.7-17.5 HEMATOCRIT (BEAKER) (test mdbo=283) 29.0 % 40.1-51.0 CBC (HEMOGRAM ONLY)2016-11-28 16:10:00 Test Item Value Reference Range Comments WHITE BLOOD CELL COUNT (BEAKER) (test hnma=855) 7.6 K/ L 3.5-10.5 RED BLOOD CELL COUNT (BEAKER) (test bcxm=158) 3.06 M/ L 4.63-6.08 HEMOGLOBIN (BEAKER) (test aggj=707) 10.0 GM/DL 13.7-17.5 HEMATOCRIT (BEAKER) (test todk=279) 29.0 % 40.1-51.0 MEAN CORPUSCULAR VOLUME (BEAKER) (test uwls=718) 94.8 fL 79.0-92.2 MEAN CORPUSCULAR HEMOGLOBIN (BEAKER) (test 32.7 pg 25.7-32.2 sswe=614) MEAN CORPUSCULAR HEMOGLOBIN CONC (BEAKER) (test 34.5 GM/DL 32.3-36.5 hdwq=629) RED CELL DISTRIBUTION WIDTH (BEAKER) (test 15.2 % 11.6-14.4 jstb=164) PLATELET COUNT (BEAKER) (test lius=422) 208 K/CU MM 150-450 MEAN PLATELET VOLUME (BEAKER) (test njld=222) 10.4 fL 9.4-12.4 NUCLEATED RED BLOOD CELLS (BEAKER) (test 0 /100 WBC 0-0 yylg=763) BLOOD GAS, [id number] 16:03:00 Test Item Value Reference Range Comments PH ARTERIAL (BEAKER) (test poyp=849) 7.36 7.35-7.45 PCO2 ARTERIAL (BEAKER) (test eonh=770) 45 mmHg 35-45 PO2 ARTERIAL (BEAKER) (test glpy=346) 142 mmHg 80-90 O2 SATURATION ARTERIAL (BEAKER) (test uueo=399) 98.8 % 96.0-97.0 HCO3 ARTERIAL (BEAKER) (test vams=777) 25 mmol/L 21-29 BASE EXCESS ARTERIAL (BEAKER) (test foia=435) -1.2 mmol/L -2.0-3.0 PATIENT TEMPERATURE (BEAKER) (test ucpd=2864) 35.8 C FIO2 (BEAKER) (test wqgr=3939) 60.0 % CALCIUM, [id number] 16:03:00 Test Item Value Reference Range Comments CALCIUM IONIZED (BEAKER) (test aqvb=780) 1.18 mmol/L 1.12-1.27 PH, BLOOD ([facility]) (test xgdu=4473) 7.36 OXYGEN SATURATION, [id number] 16:02:00 Test Item Value Reference Range Comments O2 SATURATION (MEASURED) ([facility]) (test wzqu=7654) 82.9 % [id number] 15:26:00 Test Item Value Reference Range Comments ACTIVATED CLOTTING TIME 120 sec TESTED AT [address] [facility] (test cpfb=187) [place] [address] [id number] 15:26:00 Test Item Value Reference Range Comments ACTIVATED CLOTTING TIME 802 sec TESTED AT [address] ([facility] (test cvci=739) [place] [address] [id number] 15:26:00 Test Item Value Reference Range Comments ACTIVATED CLOTTING TIME 884 sec TESTED AT [address] ([facility] (test oega=222) [place] [address] [id number] 15:26:00 Test Item Value Reference Range Comments ACTIVATED CLOTTING TIME 621 sec TESTED AT [address] (BEAKER) (test avql=999) [place] [address] THROMBOELASTOGRAPH (TEG)2016-11-28 14:00:00 Test Item Value Reference Range Comments TEG ACTIVATED CLOTTING TIME (BEAKER) (test 8.7 minutes 4.0-7.0 kjlu=3109) TEG FIBRINOGEN ACTIVITY (BEAKER) (test 73.1 degrees 61.0-73.0 usad=0578) TEG PLT. AGGREGATION (BEAKER) (test zjsk=2418) 70.6 MM 55.0-65.0 TGH ACTIVATED CLOTTING TIME (BEAKER) (test 8.7 minutes 4.0-7.0 xjgb=8134) TGH FIBRINOGEN ACTIVITY (BEAKER) (test 73.0 degrees 61.0-73.0 ltfi=9277) TGH PLT. AGGREGATION (BEAKER) (test byvs=0924) 69.3 MM 55.0-65.0 [id number] 13:28:00 Test Item Value Reference Range Comments FIBRINOGEN LEVEL (BEAKER) (test vlcy=943) 458 mg/dl 225-434 [id number] 13:28:00 Test Item Value Reference Range Comments PARTIAL THROMBOPLASTIN TIME (BEAKER) (test 39.7 seconds 22.5-36.0 xjak=181) PROTHROMBIN [id number] 13:27:00 Test Item Value Reference Range Comments PROTIME (BEAKER) (test zkvs=720) 17.4 seconds 11.7-14.7 INR (BEAKER) (test vejd=870) 1.4 <=5.9 RECOMMENDED COUMADIN/WARFARIN INR THERAPY RANGESSTANDARD DOSE: 2.0 - 3.0 Includes: PROPHYLAXIS forvenous thrombosis, systemic embolization; TREATMENT for venous thrombosis and/or pulmonary embolus.HIGH RISK: Target INR is 2.5-3.5 for patients with mechanical heart valves.PLATELET [id number] 13:21:00 Test Item Value Reference Range Comments PLATELET COUNT (BEAKER) 151 K/CU MM 150-450 Discordant result compared to (test pepn=910) previous result; clinical correlation required. CALCIUM, [id number] 13:06:00 Test Item Value Reference Range Comments CALCIUM IONIZED (BEAKER) (test tdlo=518) 1.07 mmol/L 1.12-1.27 PH, BLOOD (BEAKER) (test satn=3906) 7.31 SODIUM NA-STAT [id number] 13:05:00 Test Item Value Reference Range Comments SODIUM (BEAKER) (test juum=917) 135 meq/L 135-148 POTASSIUM-STAT [id number] 13:05:00 Test Item Value Reference Range Comments POTASSIUM (BEAKER) (test daol=289) 4.4 meq/L 3.6-5.5 BLOOD GAS, [id number] 13:05:00 Test Item Value Reference Range Comments PH ARTERIAL (BEAKER) (test jhaj=374) 7.34 7.35-7.45 PCO2 ARTERIAL (BEAKER) (test oodp=131) 45 mmHg 35-45 PO2 ARTERIAL (BEAKER) (test xuca=799) 292 mmHg 80-90 O2 SATURATION ARTERIAL (BEAKER) (test qeqd=027) 99.6 % 96.0-97.0 HCO3 ARTERIAL (BEAKER) (test ajwv=634) 24 mmol/L 21-29 BASE EXCESS ARTERIAL (BEAKER) (test vwgg=811) -2.1 mmol/L -2.0-3.0 PATIENT TEMPERATURE (BEAKER) (test isls=9530) 35.2 C FIO2 (BEAKER) (test lbqf=8126) 67.0 % GLUCOSE-STAT [id number] 13:05:00 Test Item Value Reference Range Comments GLUCOSE RANDOM (BEAKER) (test cgnk=403) 145 mg/dL 70-110 HGB/HCT (H&H) - STAT [id number] 13:05:00 Test Item Value Reference Range Comments HEMOGLOBIN (BEAKER) (test ceyo=196) 10.2 g/dL 13.0-16.8 HEMATOCRIT (BEAKER) (test kxne=460) 30.0 % 40.0-50.0 BLOOD GAS, [id number] 12:26:00 Test Item Value Reference Range Comments PH ARTERIAL (BEAKER) (test ajaz=574) 7.38 7.35-7.45 PCO2 ARTERIAL (BEAKER) (test qoym=462) 42 mmHg 35-45 PO2 ARTERIAL (BEAKER) (test lbvd=419) 133 mmHg 80-90 O2 SATURATION ARTERIAL (BEAKER) (test kcbf=175) 98.6 % 96.0-97.0 HCO3 ARTERIAL (BEAKER) (test ylyr=487) 24 mmol/L 21-29 BASE EXCESS ARTERIAL (BEAKER) (test swpi=381) -0.7 mmol/L -2.0-3.0 PATIENT TEMPERATURE (BEAKER) (test couj=0922) 37.0 C FIO2 (BEAKER) (test qqpp=5171) 65.0 % GLUCOSE-STAT [id number] 12:26:00 Test Item Value Reference Range Comments GLUCOSE RANDOM (BEAKER) (test ztec=841) 132 mg/dL 70-110 HGB/HCT (H&H) - STAT [id number] 12:26:00 Test Item Value Reference Range Comments HEMOGLOBIN (BEAKER) (test imeq=976) 10.6 g/dL 13.0-16.8 HEMATOCRIT (BEAKER) (test xnvz=149) 31.0 % 40.0-50.0 SODIUM NA-STAT [id number] 12:25:00 Test Item Value Reference Range Comments SODIUM (BEAKER) (test acsm=553) 136 meq/L 135-148 POTASSIUM-STAT [id number] 12:25:00 Test Item Value Reference Range Comments POTASSIUM (BEAKER) (test txrn=575) 4.4 meq/L 3.6-5.5 BLOOD GAS, [id number] 12:03:00 Test Item Value Reference Range Comments PH VENOUS (BEAKER) (test xwkd=454) 7.41 7.32-7.42 PCO2 VENOUS (BEAKER) (test gitm=148) 39 mmHg 41-51 PO2 VENOUS (BEAKER) (test quyr=902) 43 mmHg 25-40 O2 SATURATION VENOUS (BEAKER) (test ehes=422) 91.8 % 40.0-70.0 HCO3 VENOUS (BEAKER) (test xcfb=586) 26 mmol/L 21-29 BASE EXCESS VENOUS (BEAKER) (test xjqt=323) -0.6 mmol/L -2.0-3.0 PATIENT TEMPERATURE (BEAKER) (test tqwb=5843) 30.1 C FIO2 (BEAKER) (test ehln=1278) 65.0 % POTASSIUM-STAT [id number] 12:00:00 Test Item Value Reference Range Comments POTASSIUM (BEAKER) (test nxhr=134) 4.7 meq/L 3.6-5.5 BLOOD GAS, [id number] 12:00:00 Test Item Value Reference Range Comments PH ARTERIAL (BEAKER) (test phnx=973) 7.45 7.35-7.45 PCO2 ARTERIAL (BEAKER) (test lhta=062) 34 mmHg 35-45 PO2 ARTERIAL (BEAKER) (test wget=520) 304 mmHg 80-90 O2 SATURATION ARTERIAL (BEAKER) (test cjkg=835) 99.7 % 96.0-97.0 HCO3 ARTERIAL (BEAKER) (test vpln=306) 25 mmol/L 21-29 BASE EXCESS ARTERIAL (BEAKER) (test hiww=173) -0.8 mmol/L -2.0-3.0 PATIENT TEMPERATURE (BEAKER) (test ajrt=6245) 30.1 C FIO2 (BEAKER) (test ccin=4205) 65.0 % GLUCOSE-STAT [id number] 12:00:00 Test Item Value Reference Range Comments GLUCOSE RANDOM (BEAKER) (test uyvv=987) 140 mg/dL 70-110 HGB/HCT (H&H) - STAT [id number] 12:00:00 Test Item Value Reference Range Comments HEMOGLOBIN (BEAKER) (test flnf=777) 10.4 g/dL 13.0-16.8 HEMATOCRIT (BEAKER) (test ybja=603) 31.0 % 40.0-50.0 SODIUM NA-STAT [id number] 12:00:00 Test Item Value Reference Range Comments SODIUM (BEAKER) (test mhvc=403) 131 meq/L 135-148 PLATELET AGGREGATION: FUNCTION [id number] 11:08:00 Test Item Value Reference Range Comments WEAK ADP RESULT(BEAKER) (test 76 % 60-91 bunt=9190) PLATELET FUNCTION SCREEN 60-100% indicates normal INTERP (BEAKER) (test platelet function jnru=3133) [id number] (BEAKER) Mari Phelan MD (electronic (test lofv=2621) signature) PLATELET COUNT AGG (BEAKER) 222 K/CU MM 150-450 (test ndyv=6806) for patients on clopidogrel in past two weeksHEMOGLOBIN [id number] 08:57:00 Test Item Value Reference Range Comments HEMOGLOBIN A1C (BEAKER) (test rqty=433) 5.0 % 4.3-6.1 CBC W/PLT COUNT & AUTO [id number] 05:54:00 Test Item Value Reference Range Comments WHITE BLOOD CELL COUNT (BEAKER) (test capa=611) 9.9 K/ L 3.5-10.5 RED BLOOD CELL COUNT (BEAKER) (test iyfr=253) 4.14 M/ L 4.63-6.08 HEMOGLOBIN (BEAKER) (test exww=228) 13.4 GM/DL 13.7-17.5 HEMATOCRIT (BEAKER) (test nlsj=286) 39.0 % 40.1-51.0 MEAN CORPUSCULAR VOLUME (BEAKER) (test swxw=368) 94.2 fL 79.0-92.2 MEAN CORPUSCULAR HEMOGLOBIN (BEAKER) (test 32.4 pg 25.7-32.2 hzpe=545) MEAN CORPUSCULAR HEMOGLOBIN CONC (BEAKER) (test 34.4 GM/DL 32.3-36.5 vzdm=548) RED CELL DISTRIBUTION WIDTH (BEAKER) (test 14.7 % 11.6-14.4 asen=841) PLATELET COUNT (BEAKER) (test asia=823) 224 K/CU MM 150-450 MEAN PLATELET VOLUME (BEAKER) (test mpgr=665) 11.1 fL 9.4-12.4 NUCLEATED RED BLOOD CELLS (BEAKER) (test 0 /100 WBC 0-0 qjqw=822) NEUTROPHILS RELATIVE PERCENT (BEAKER) (test 72 % dlsg=544) LYMPHOCYTES RELATIVE PERCENT (BEAKER) (test 15 % znib=756) MONOCYTES RELATIVE PERCENT (BEAKER) (test 11 % txrt=075) EOSINOPHILS RELATIVE PERCENT (BEAKER) (test 1 % odeh=629) BASOPHILS RELATIVE PERCENT (BEAKER) (test 0 % ikxt=042) NEUTROPHILS ABSOLUTE COUNT (BEAKER) (test 7.13 K/ L 1.78-5.38 vzac=127) LYMPHOCYTES ABSOLUTE COUNT (BEAKER) (test 1.49 K/ L 1.32-3.57 jbtj=587) MONOCYTES ABSOLUTE COUNT (BEAKER) (test 1.13 K/ L 0.30-0.82 hsaa=863) EOSINOPHILS ABSOLUTE COUNT (BEAKER) (test 0.07 K/ L 0.04-0.54 fiex=182) BASOPHILS ABSOLUTE COUNT (BEAKER) (test 0.02 K/ L 0.01-0.08 dxkg=266) IMMATURE GRANULOCYTES-RELATIVE PERCENT (BEAKER) 0 % 0-1 (test uuwt=4676) [id number] 05:37:00 Test Item Value Reference Range Comments PARTIAL THROMBOPLASTIN TIME (BEAKER) (test 56.5 seconds 22.5-36.0 ahxe=653) BASIC METABOLIC [id number] 05:33:00 Test Item Value Reference Range Comments SODIUM (BEAKER) (test 141 meq/L 136-145 augw=156) POTASSIUM (BEAKER) (test 4.2 meq/L 3.5-5.1 eeuu=250) CHLORIDE (BEAKER) (test 104 meq/L 98-107 jquz=756) CO2 (BEAKER) (test 28 meq/L 22-29 lfth=025) BLOOD UREA NITROGEN 10 mg/dL 7-21 (BEAKER) (test dkbd=875) CREATININE (BEAKER) (test 0.69 mg/dL 0.57-1.25 olrk=131) GLUCOSE RANDOM (BEAKER) 127 mg/dL 70-105 (test qevn=596) CALCIUM (BEAKER) (test 9.3 mg/dL 8.4-10.2 lrqn=345) EGFR (BEAKER) (test 114 mL/min/1.73 sq m ESTIMATED GFR IS NOT kfju=5078) ACCURATE CREATININE CLEARANCE IN PREDICTING GLOMERULAR FILTRATION RATE. ESTIMATED GFR IS NOT APPLICABLE FOR DIALYSIS PATIENTS. PROTHROMBIN TIME/[id number] 05:33:00 Test Item Value Reference Range Comments PROTIME (BEAKER) (test trvf=323) 13.3 seconds 11.7-14.7 INR (BEAKER) (test snhe=678) 1.0 <=5.9 RECOMMENDED COUMADIN/WARFARIN INR THERAPY RANGESSTANDARD DOSE: 2.0 - 3.0 Includes: PROPHYLAXIS forvenous thrombosis, systemic embolization; TREATMENT for venous thrombosis and/or pulmonary embolus.HIGH RISK: Target INR is 2.5-3.5 for patients with mechanical heart valves.[id number] 19:22:00 Test Item Value Reference Range Comments PARTIAL THROMBOPLASTIN TIME (BEAKER) (test 37.4 seconds 22.5-36.0 lmwo=072) PROTHROMBIN TIME/[id number] 19:21:00 Test Item Value Reference Range Comments PROTIME (BEAKER) (test rsla=639) 12.8 seconds 11.7-14.7 INR (BEAKER) (test yccm=621) 1.0 <=5.9 RECOMMENDED COUMADIN/WARFARIN INR THERAPY RANGESSTANDARD DOSE: 2.0 - 3.0 Includes: PROPHYLAXIS forvenous thrombosis, systemic embolization; TREATMENT for venous thrombosis and/or pulmonary embolus.HIGH RISK: Target INR is 2.5-3.5 for patients with mechanical heart valves.[id number] 11:49:00 Test Item Value Reference Range Comments PARTIAL THROMBOPLASTIN TIME (BEAKER) (test 34.7 seconds 22.5-36.0 zhvs=739) Prior to initiating heparinPLATELET [id number] 11:31:00 Test Item Value Reference Range Comments PLATELET COUNT (BEAKER) (test qsdv=686) 199 K/CU MM 150-450 PLATELET AGGREGATION: FUNCTION [id number] 11:12:00 Test Item Value Reference Range Comments WEAK ADP RESULT(BEAKER) (test 90 % 60-91 zxvi=9041) PLATELET FUNCTION SCREEN 60-100% indicates normal INTERP (BEAKER) (test platelet function nuxb=5905) [id number] ([facility]) Mari Phelan MD (electronic (test xydi=7826) signature) PLATELET COUNT AGG (BEAKER) 200 K/CU MM 150-450 (test rznf=3048) HEMOGLOBIN [id number] 08:38:00 Test Item Value Reference Range Comments HEMOGLOBIN A1C (BEAKER) (test zazs=398) 5.5 % 4.3-6.1 TROPONIN [id number] 08:35:00 Test Item Value Reference Range Comments TROPONIN I (ARAMISAKER) (test wmtn=635) 0.40 ng/mL 0.00-0.03 Effective 03/02/2014: Reference Range [...] and persistent tachyarrhythmia.CREATINE KINASE (CK), TOTAL AND [id number] 08:27:00 Test Item Value Reference Range Comments CREATINE KINASE TOTAL (ARAMISAKER) (test aupt=924) 39 U/L 29-200 CREATINE KINASE-MB (BEAKER) (test nckn=844) 1.6 ng/mL 0.0-6.6 CREATINE KINASE-MB INDEX (BEAKER) (test utmb=775) 4.1 % Effective 03/02/2014: CK-MB Reference Range ChangeNew: 0.0-6.6 Previous: 0.0- 4.9CK-MB Reference Range:<6.7 Normal6.7-10.0 Borderline>10.0 AbnormalPOCT-GLUCOSE [id number] 08:23:00 Test Item Value Reference Range Comments POC-GLUCOSE METER ([employer]) 104 mg/dL 70-110 TESTED AT [address] (test okwm=5652) [place] [address] PROTHROMBIN [id number] 04:32:00 Test Item Value Reference Range Comments PROTIME (BEAKER) (test lwpz=867) 13.5 seconds 11.7-14.7 INR (BEAKER) (test adfe=931) 1.0 <=5.9 RECOMMENDED COUMADIN/WARFARIN INR THERAPY RANGESSTANDARD DOSE: 2.0 - 3.0 Includes: PROPHYLAXIS forvenous thrombosis, systemic embolization; TREATMENT for venous thrombosis and/or pulmonary embolus.HIGH RISK: Target INR is 2.5-3.5 for patients with mechanical heart valves.[id number] 02:13:00 Test Item Value Reference Range Comments PHOSPHORUS (BEAKER) (test nuad=830) 3.9 mg/dL 2.3-4.7 [id number] 02:13:00 Test Item Value Reference Range Comments MAGNESIUM (BEAKER) (test ghhz=156) 2.1 mg/dL 1.6-2.6 BASIC METABOLIC [id number] 02:13:00 Test Item Value Reference Range Comments SODIUM (BEAKER) (test 141 meq/L 136-145 gain=035) POTASSIUM (BEAKER) (test 4.3 meq/L 3.5-5.1 lxfd=892) CHLORIDE (BEAKER) (test 104 meq/L 98-107 brrv=295) CO2 (BEAKER) (test 28 meq/L 22-29 cglp=095) BLOOD UREA NITROGEN 8 mg/dL 7-21 (BEAKER) (test ysym=080) CREATININE (BEAKER) (test 0.67 mg/dL 0.57-1.25 flxc=050) GLUCOSE RANDOM (BEAKER) 98 mg/dL 70-105 (test guil=789) CALCIUM (BEAKER) (test 9.2 mg/dL 8.4-10.2 fgyo=705) EGFR (BEAKER) (test 118 mL/min/1.73 sq m ESTIMATED GFR IS NOT rclw=8364) ACCURATE CREATININE CLEARANCE IN PREDICTING GLOMERULAR FILTRATION RATE. ESTIMATED GFR IS NOT APPLICABLE FOR DIALYSIS PATIENTS. CBC W/PLT COUNT & AUTO [id number] 01:44:00 Test Item Value Reference Range Comments WHITE BLOOD CELL COUNT (BEAKER) (test lfni=050) 8.1 K/ L 3.5-10.5 RED BLOOD CELL COUNT (BEAKER) (test vryg=671) 3.92 M/ L 4.63-6.08 HEMOGLOBIN (BEAKER) (test aiai=920) 12.6 GM/DL 13.7-17.5 HEMATOCRIT (BEAKER) (test sdgf=884) 37.3 % 40.1-51.0 MEAN CORPUSCULAR VOLUME (BEAKER) (test oekp=262) 95.2 fL 79.0-92.2 MEAN CORPUSCULAR HEMOGLOBIN (BEAKER) (test 32.1 pg 25.7-32.2 wolc=418) MEAN CORPUSCULAR HEMOGLOBIN CONC (BEAKER) (test 33.8 GM/DL 32.3-36.5 iqmo=803) RED CELL DISTRIBUTION WIDTH (BEAKER) (test 15.2 % 11.6-14.4 ijof=882) PLATELET COUNT (BEAKER) (test ojvp=843) 207 K/CU MM 150-450 MEAN PLATELET VOLUME (BEAKER) (test scmn=355) 10.8 fL 9.4-12.4 NUCLEATED RED BLOOD CELLS (BEAKER) (test 0 /100 WBC 0-0 klhh=376) NEUTROPHILS RELATIVE PERCENT (BEAKER) (test 51 % yivl=613) LYMPHOCYTES RELATIVE PERCENT (BEAKER) (test 30 % iolq=860) MONOCYTES RELATIVE PERCENT (BEAKER) (test 17 % ryyx=844) EOSINOPHILS RELATIVE PERCENT (BEAKER) (test 2 % abkx=407) BASOPHILS RELATIVE PERCENT (BEAKER) (test 0 % tpnw=863) NEUTROPHILS ABSOLUTE COUNT (BEAKER) (test 4.09 K/ L 1.78-5.38 xhsb=927) LYMPHOCYTES ABSOLUTE COUNT (BEAKER) (test 2.38 K/ L 1.32-3.57 vszx=181) MONOCYTES ABSOLUTE COUNT (BEAKER) (test 1.34 K/ L 0.30-0.82 hdux=701) EOSINOPHILS ABSOLUTE COUNT (BEAKER) (test 0.19 K/ L 0.04-0.54 laiq=682) BASOPHILS ABSOLUTE COUNT (BEAKER) (test 0.03 K/ L 0.01-0.08 kiut=633) IMMATURE GRANULOCYTES-RELATIVE PERCENT (BEAKER) 0 % 0-1 (test divv=9589) [id number] 01:31:00 Test Item Value Reference Range Comments PROTIME (BEAKER) (test nssv=674) 13.1 seconds 11.7-14.7 INR (BEAKER) (test sxcp=124) 1.0 <=5.9 PARTIAL THROMBOPLASTIN TIME (BEAKER) (test 35.3 seconds 22.5-36.0 edou=944) RECOMMENDED COUMADIN/WARFARIN INR THERAPY RANGESSTANDARD DOSE: 2.0 - 3.0 Includes: PROPHYLAXIS forvenous thrombosis, systemic embolization; TREATMENT for venous thrombosis and/or pulmonary embolus.HIGH RISK: Target INR is 2.5-3.5 for patients with mechanical heart valves.TROPONIN [id number] 00:46:00 Test Item Value Reference Range Comments TROPONIN I (BEAKER) (test znqg=426) 0.51 ng/mL 0.00-0.03 Effective 03/02/2014: Reference Range [...] and persistent tachyarrhythmia.CREATINE KINASE (CK), TOTAL AND [id number] 00:34:00 Test Item Value Reference Range Comments CREATINE KINASE TOTAL (BEAKER) (test wbza=271) 44 U/L 29-200 CREATINE KINASE-MB (BEAKER) (test golo=609) 2.1 ng/mL 0.0-6.6 CREATINE KINASE-MB INDEX (BEAKER) (test nmyj=470) 4.8 % Effective 03/02/2014: CK-MB Reference Range ChangeNew: 0.0-6.6 Previous: 0.0- 4.9CK-MB Reference Range:<6.7 Normal6.7-10.0 Borderline>10.0 [id number] 06:58:00 Test Item Value Reference Range Comments PHOSPHORUS (BEAKER) (test nzlb=320) 3.7 mg/dL 2.3-4.7 [id number] 06:58:00 Test Item Value Reference Range Comments MAGNESIUM (BEAKER) (test ybfz=948) 1.9 mg/dL 1.6-2.6 BASIC METABOLIC [id number] 06:58:00 Test Item Value Reference Range Comments SODIUM (BEAKER) (test 139 meq/L 136-145 yxbw=135) POTASSIUM (BEAKER) (test 4.1 meq/L 3.5-5.1 dkfu=453) CHLORIDE (BEAKER) (test 106 meq/L 98-107 vckg=971) CO2 (BEAKER) (test 24 meq/L 22-29 glqu=113) BLOOD UREA NITROGEN 12 mg/dL 7-21 (BEAKER) (test sumi=482) CREATININE (BEAKER) (test 0.67 mg/dL 0.57-1.25 nusy=021) GLUCOSE RANDOM (BEAKER) 82 mg/dL 70-105 (test sgqf=897) CALCIUM (BEAKER) (test 8.7 mg/dL 8.4-10.2 kusd=909) EGFR (BEAKER) (test 118 mL/min/1.73 sq m ESTIMATED GFR IS NOT qetd=7786) ACCURATE CREATININE CLEARANCE IN PREDICTING GLOMERULAR FILTRATION RATE. ESTIMATED GFR IS NOT APPLICABLE FOR DIALYSIS PATIENTS. [id number] 06:36:00 Test Item Value Reference Range Comments PHOSPHORUS (BEAKER) (test xnfj=342) 4.1 mg/dL 2.3-4.7 [id number] 06:36:00 Test Item Value Reference Range Comments MAGNESIUM (BEAKER) (test olwa=362) 2.0 mg/dL 1.6-2.6 BASIC METABOLIC [id number] 06:36:00 Test Item Value Reference Range Comments SODIUM (BEAKER) (test 140 meq/L 136-145 vyan=858) POTASSIUM (BEAKER) (test 4.3 meq/L 3.5-5.1 aytu=137) CHLORIDE (BEAKER) (test 107 meq/L 98-107 pnkk=503) CO2 (BEAKER) (test 24 meq/L 22-29 gktc=408) BLOOD UREA NITROGEN 10 mg/dL 7-21 (BEAKER) (test ttqn=653) CREATININE (BEAKER) (test 0.64 mg/dL 0.57-1.25 szma=627) GLUCOSE RANDOM (BEAKER) 78 mg/dL 70-105 (test zygg=416) CALCIUM (BEAKER) (test 9.1 mg/dL 8.4-10.2 ntzt=398) EGFR (BEAKER) (test 125 mL/min/1.73 sq m ESTIMATED GFR IS NOT ridr=4522) ACCURATE CREATININE CLEARANCE IN PREDICTING GLOMERULAR FILTRATION RATE. ESTIMATED GFR IS NOT APPLICABLE FOR DIALYSIS PATIENTS. [id number] 15:50:00 Test Item Value Reference Range Comments RPR SCREEN (BEAKER) (test yemf=004) Nonreactive Nonreactive HEMOGLOBIN [id number] 10:29:00 Test Item Value Reference Range Comments HEMOGLOBIN A1C (BEAKER) (test ujlk=828) 5.4 % 4.3-6.1 VITAMIN B12 AND [id number] 09:21:00 Test Item Value Reference Range Comments VITAMIN B12 (BEAKER) (test onkd=093) 335 pg/mL 213-816 FOLATE (BEAKER) (test rcuy=434) 36.6 ng/mL >=7.0 Effective 03/02/2014: Folate Reference Range ChangeNew: >=7.0 Previous: & gt;=5.4CBC W/PLT COUNT & AUTO [id number] 08:15:00 Test Item Value Reference Range Comments WHITE BLOOD CELL COUNT (BEAKER) (test xrvf=934) 7.2 K/ L 4.0-10.0 RED BLOOD CELL COUNT (BEAKER) (test foil=535) 4.30 M/ L 4.20-5.80 HEMOGLOBIN (BEAKER) (test ibeo=511) 14.0 GM/DL 13.0-16.8 HEMATOCRIT (BEAKER) (test gsin=725) 42.7 % 40.0-50.0 MEAN CORPUSCULAR VOLUME (BEAKER) (test runa=521) 99.3 fL 82.0-98.0 MEAN CORPUSCULAR HEMOGLOBIN (BEAKER) (test 32.6 pg 27.0-33.0 dbor=164) MEAN CORPUSCULAR HEMOGLOBIN CONC (BEAKER) (test 32.9 GM/DL 32.0-36.0 srsx=008) RED CELL DISTRIBUTION WIDTH (BEAKER) (test 15.3 % 10.3-14.2 jera=394) PLATELET COUNT (BEAKER) (test wdhp=009) 217 K/CU MM 150-430 MEAN PLATELET VOLUME (BEAKER) (test etkr=792) 8.2 fL 6.5-10.5 NUCLEATED RED BLOOD CELLS (BEAKER) (test 0 /100 WBC 0-0 pkck=016) NEUTROPHILS RELATIVE PERCENT (BEAKER) (test 48 % xavf=014) LYMPHOCYTES RELATIVE PERCENT (BEAKER) (test 38 % qvwv=802) MONOCYTES RELATIVE PERCENT (BEAKER) (test 12 % ndcq=692) EOSINOPHILS RELATIVE PERCENT (BEAKER) (test 2 % muwe=986) BASOPHILS RELATIVE PERCENT (BEAKER) (test 1 % lgvz=172) NEUTROPHILS ABSOLUTE COUNT (BEAKER) (test 3.42 K/ L 1.80-8.00 hmni=171) LYMPHOCYTES ABSOLUTE COUNT (BEAKER) (test 2.70 K/ L 1.48-4.50 tzss=324) MONOCYTES ABSOLUTE COUNT (BEAKER) (test 0.82 K/ L 0.00-1.30 hezm=560) EOSINOPHILS ABSOLUTE COUNT (BEAKER) (test 0.17 K/ L 0.00-0.50 ebga=916) BASOPHILS ABSOLUTE COUNT (BEAKER) (test 0.05 K/ L 0.00-0.20 rhtm=667) 0.00TSH/FREE T4 IF [id number] 08:00:00 Test Item Value Reference Range Comments THYROID STIMULATING HORMONE (BEAKER) (test 1.39 uIU/mL 0.35-4.94 hxqm=677) BASIC METABOLIC [id number] 07:26:00 Test Item Value Reference Range Comments SODIUM (BEAKER) (test 140 meq/L 136-145 vipw=279) POTASSIUM (BEAKER) (test 4.4 meq/L 3.5-5.1 Specimen slightly bumo=253) hemolyzed CHLORIDE (BEAKER) (test 110 meq/L 98-107 qyrz=365) CO2 (BEAKER) (test 21 meq/L 22-29 wemc=283) BLOOD UREA NITROGEN 8 mg/dL 7-21 (BEAKER) (test xjie=554) CREATININE (BEAKER) 0.65 mg/dL 0.57-1.25 Specimen slightly (test jytk=599) hemolyzed GLUCOSE RANDOM (BEAKER) 85 mg/dL 70-105 (test dmqv=261) CALCIUM (BEAKER) (test 9.0 mg/dL 8.4-10.2 obza=233) EGFR (BEAKER) (test 123 mL/min/1.73 sq INSUFFICIENT CLINICAL DATA bixx=8243) m TO CALCULATE ESTIMATED GFR. LIPID [id number] 07:26:00 Test Item Value Reference Range Comments TRIGLYCERIDES (BEAKER) (test 102 mg/dL Specimen slightly hemolyzed jhxh=144) CHOLESTEROL (BEAKER) (test 181 mg/dL Specimen slightly hemolyzed friw=901) HDL CHOLESTEROL (BEAKER) (test 30 mg/dL pwpj=319) LDL CHOLESTEROL CALCULATED 131 mg/dL (BEAKER) (test oxzv=617) Triglyceride Reference Range: Low Risk <150 Borderline 150- 199 High Risk 200-499 Very High Risk >=500Cholesterol Reference Range: Low Risk <200 Borderline 200-239 High Risk > 240HDL Cholesterol Reference Range: Low Risk >=60 High Risk <40LDL Cholesterol Reference Range: Optimal <100 Near Optimal 100-129 Borderline 130-159 High 160-189 Very High >=[id number] 07:25:00 Test Item Value Reference Range Comments PHOSPHORUS (BEAKER) (test mstx=278) 3.8 mg/dL 2.3-4.7 [id number] 07:25:00 Test Item Value Reference Range Comments MAGNESIUM (BEAKER) (test nfsd=275) 2.0 mg/dL 1.6-2.6 URINALYSIS W/ [id number] 19:16:00 Test Item Value Reference Range Comments COLOR (BEAKER) (test dkpd=254) Light Yellow CLARITY (BEAKER) (test mvqe=636) Clear SPECIFIC GRAVITY UA (BEAKER) (test qguc=739) 1.007 1.001-1.035 PH UA (BEAKER) (test hmdw=455) 6.5 5.0-8.0 PROTEIN UA (BEAKER) (test oebf=176) Negative Negative GLUCOSE UA (BEAKER) (test tdaa=437) Negative Negative KETONES UA (BEAKER) (test unoo=678) Negative Negative BILIRUBIN UA (BEAKER) (test fvyo=492) Negative Negative BLOOD UA (BEAKER) (test klbn=175) Negative Negative NITRITE UA (BEAKER) (test dkcw=397) Negative Negative LEUKOCYTE ESTERASE UA (BEAKER) (test napw=433) Negative Negative UROBILINOGEN UA (BEAKER) (test sauy=893) 0.2 mg/dL 0.2-1.0 RBC UA (BEAKER) (test qjlr=375) 1 /HPF WBC UA (BEAKER) (test mwfp=417) < /HPF SOURCE(BEAKER) (test iwkn=4298) Urine, Voided BLOOD [id number] 11:00:00 Test Item Value Reference Range Comments CULTURE (BEAKER) (test pqha=2463) No growth in 5 days BLOOD [id number] 11:00:00 Test Item Value Reference Range Comments CULTURE (BEAKER) (test mwmu=7008) No growth in 5 days BASIC METABOLIC [id number] 05:33:00 Test Item Value Reference Range Comments SODIUM (BEAKER) (test 137 meq/L 136-145 fxnw=900) POTASSIUM (BEAKER) (test 4.6 meq/L 3.5-5.1 vhro=901) CHLORIDE (BEAKER) (test 104 meq/L 98-107 necr=995) CO2 (BEAKER) (test 22 meq/L 22-29 lccn=754) BLOOD UREA NITROGEN 4 mg/dL 7-21 (BEAKER) (test ynkv=953) CREATININE (BEAKER) 0.61 mg/dL 0.57-1.25 (test agmr=639) GLUCOSE RANDOM (BEAKER) 84 mg/dL 70-105 (test mvwz=290) CALCIUM (BEAKER) (test 9.1 mg/dL 8.4-10.2 ghky=538) EGFR (BEAKER) (test 132 mL/min/1.73 sq INSUFFICIENT CLINICAL DATA swbw=4184) m TO CALCULATE ESTIMATED GFR. CBC W/PLT COUNT & AUTO [id number] 05:04:00 Test Item Value Reference Range Comments WHITE BLOOD CELL COUNT (BEAKER) (test iqgp=827) 9.4 K/ L 4.0-10.0 RED BLOOD CELL COUNT (BEAKER) (test ysna=218) 4.10 M/ L 4.20-5.80 HEMOGLOBIN (BEAKER) (test zmtm=883) 13.8 GM/DL 13.0-16.8 HEMATOCRIT (BEAKER) (test yjpy=198) 40.7 % 40.0-50.0 MEAN CORPUSCULAR VOLUME (BEAKER) (test gxth=897) 99.3 fL 82.0-98.0 MEAN CORPUSCULAR HEMOGLOBIN (BEAKER) (test 33.7 pg 27.0-33.0 xoic=839) MEAN CORPUSCULAR HEMOGLOBIN CONC (BEAKER) (test 33.9 GM/DL 32.0-36.0 gqyo=129) RED CELL DISTRIBUTION WIDTH (BEAKER) (test 13.7 % 10.3-14.2 aljb=862) PLATELET COUNT (BEAKER) (test bpqn=301) 224 K/CU MM 150-430 MEAN PLATELET VOLUME (BEAKER) (test zvsi=769) 7.4 fL 6.5-10.5 NUCLEATED RED BLOOD CELLS (BEAKER) (test 0 /100 WBC 0-0 giou=820) NEUTROPHILS RELATIVE PERCENT (BEAKER) (test 69 % bomc=361) LYMPHOCYTES RELATIVE PERCENT (BEAKER) (test 18 % yhhj=218) MONOCYTES RELATIVE PERCENT (BEAKER) (test 12 % vcwk=897) EOSINOPHILS RELATIVE PERCENT (BEAKER) (test 1 % iuii=563) BASOPHILS RELATIVE PERCENT (BEAKER) (test 0 % idkh=592) NEUTROPHILS ABSOLUTE COUNT (BEAKER) (test 6.44 K/ L 1.80-8.00 grqm=944) LYMPHOCYTES ABSOLUTE COUNT (BEAKER) (test 1.69 K/ L 1.48-4.50 thta=732) MONOCYTES ABSOLUTE COUNT (BEAKER) (test 1.16 K/ L 0.00-1.30 xgxl=758) EOSINOPHILS ABSOLUTE COUNT (BEAKER) (test 0.05 K/ L 0.00-0.50 wmjl=748) BASOPHILS ABSOLUTE COUNT (BEAKER) (test 0.04 K/ L 0.00-0.20 nkym=476) 0.00VANCOMYCIN LEVEL, [id number] 21:36:00 Test Item Value Reference Range Comments VANCOMYCIN TROUGH (BEAKER) (test ebjz=758) 9.5 ug/mL 10.0-20.0 Please draw prior to 4th vancomycin doseVITAMIN B12 AND [id number] 04:33: 00 Test Item Value Reference Range Comments VITAMIN B12 (BEAKER) (test zepr=690) 599 pg/mL 213-816 FOLATE (BEAKER) (test omxs=055) 7.7 ng/mL >=7.0 Effective 03/02/2014: Folate Reference Range ChangeNew: >=7.0 Previous: & gt;=5.4HEPATIC FUNCTION [id number] 03:58:00 Test Item Value Reference Range Comments TOTAL PROTEIN (BEAKER) (test rtqv=449) 6.7 gm/dL 6.0-8.3 ALBUMIN (BEAKER) (test vfzp=2658) 3.3 g/dL 3.5-5.0 BILIRUBIN TOTAL (BEAKER) (test konn=167) 0.4 mg/dL 0.2-1.2 BILIRUBIN DIRECT (BEAKER) (test yhet=229) 0.2 mg/dL 0.1-0.5 ALKALINE PHOSPHATASE (BEAKER) (test cwyn=949) 67 U/L 40-150 AST (SGOT) (BEAKER) (test wgjo=566) 10 U/L 5-34 ALT (SGPT) (BEAKER) (test tqso=331) 12 U/L 6-55 BASIC METABOLIC [id number] 03:58:00 Test Item Value Reference Range Comments SODIUM (BEAKER) (test 139 meq/L 136-145 wqiy=167) POTASSIUM (BEAKER) (test 4.0 meq/L 3.5-5.1 auvc=053) CHLORIDE (BEAKER) (test 103 meq/L 98-107 fyaf=394) CO2 (BEAKER) (test 24 meq/L 22-29 gohs=589) BLOOD UREA NITROGEN 7 mg/dL 7-21 (BEAKER) (test jxbi=655) CREATININE (BEAKER) 0.58 mg/dL 0.57-1.25 (test xcfd=413) GLUCOSE RANDOM (BEAKER) 87 mg/dL 70-105 (test cvtd=270) CALCIUM (BEAKER) (test 9.3 mg/dL 8.4-10.2 bqxl=643) EGFR (BEAKER) (test 140 mL/min/1.73 sq INSUFFICIENT CLINICAL DATA hfhy=2787) m TO CALCULATE ESTIMATED GFR. CBC W/PLT COUNT & AUTO [id number] 03:45:00 Test Item Value Reference Range Comments WHITE BLOOD CELL COUNT (BEAKER) (test hlwp=078) 7.5 K/ L 4.0-10.0 RED BLOOD CELL COUNT (BEAKER) (test lqup=688) 3.88 M/ L 4.20-5.80 HEMOGLOBIN (BEAKER) (test dine=050) 13.5 GM/DL 13.0-16.8 HEMATOCRIT (BEAKER) (test fsvj=930) 38.4 % 40.0-50.0 MEAN CORPUSCULAR VOLUME (BEAKER) (test jsgb=943) 99.0 fL 82.0-98.0 MEAN CORPUSCULAR HEMOGLOBIN (BEAKER) (test 34.8 pg 27.0-33.0 jzvy=970) MEAN CORPUSCULAR HEMOGLOBIN CONC (BEAKER) (test 35.1 GM/DL 32.0-36.0 hdtr=110) RED CELL DISTRIBUTION WIDTH (BEAKER) (test 13.1 % 10.3-14.2 dgag=022) PLATELET COUNT (BEAKER) (test jupz=284) 204 K/CU MM 150-430 MEAN PLATELET VOLUME (BEAKER) (test cigz=565) 7.7 fL 6.5-10.5 NUCLEATED RED BLOOD CELLS (BEAKER) (test 0 /100 WBC 0-0 niev=216) NEUTROPHILS RELATIVE PERCENT (BEAKER) (test 54 % ffzt=752) LYMPHOCYTES RELATIVE PERCENT (BEAKER) (test 30 % kjyb=562) MONOCYTES RELATIVE PERCENT (BEAKER) (test 14 % ebsf=251) EOSINOPHILS RELATIVE PERCENT (BEAKER) (test 2 % sumc=940) BASOPHILS RELATIVE PERCENT (BEAKER) (test 0 % hiym=621) NEUTROPHILS ABSOLUTE COUNT (BEAKER) (test 4.09 K/ L 1.80-8.00 fmia=838) LYMPHOCYTES ABSOLUTE COUNT (BEAKER) (test 2.23 K/ L 1.48-4.50 efvl=450) MONOCYTES ABSOLUTE COUNT (BEAKER) (test 1.05 K/ L 0.00-1.30 tsjx=520) EOSINOPHILS ABSOLUTE COUNT (BEAKER) (test 0.13 K/ L 0.00-0.50 iywd=046) BASOPHILS ABSOLUTE COUNT (BEAKER) (test 0.03 K/ L 0.00-0.20 ratd=578) [id number] 03:18:00 Test Item Value Reference Range Comments PARTIAL THROMBOPLASTIN TIME (BEAKER) (test 42.6 seconds 22.5-36.0 wgop=996) PROTHROMBIN [id number] 03:17:00 Test Item Value Reference Range Comments PROTIME (BEAKER) (test zwxd=856) 13.0 seconds 11.7-14.7 INR (BEAKER) (test vimy=408) 1.0 <=5.9 RECOMMENDED COUMADIN/WARFARIN INR THERAPY RANGESSTANDARD DOSE: 2.0 - 3.0 Includes: PROPHYLAXIS forvenous thrombosis, systemic embolization; TREATMENT for venous thrombosis and/or pulmonary embolus.HIGH RISK: Target INR is 2.5-3.5 for patients with mechanical heart valves.BASIC METABOLIC [id number] 02:48: 00 Test Item Value Reference Range Comments SODIUM (BEAKER) (test 136 meq/L 136-145 hfmu=234) POTASSIUM (BEAKER) (test 4.2 meq/L 3.5-5.1 rwvv=686) CHLORIDE (BEAKER) (test 101 meq/L 98-107 yiqi=957) CO2 (BEAKER) (test 22 meq/L 22-29 filb=480) BLOOD UREA NITROGEN 7 mg/dL 7-21 (BEAKER) (test ehir=528) CREATININE (BEAKER) 0.66 mg/dL 0.57-1.25 (test ubtq=028) GLUCOSE RANDOM (BEAKER) 86 mg/dL 70-105 (test bfpi=618) CALCIUM (BEAKER) (test 10.1 mg/dL 8.4-10.2 mjmb=054) EGFR (BEAKER) (test 120 mL/min/1.73 sq INSUFFICIENT CLINICAL DATA skrt=2105) m TO CALCULATE ESTIMATED GFR. CBC W/PLT COUNT & AUTO [id number] 02:47:00 Test Item Value Reference Range Comments WHITE BLOOD CELL COUNT (BEAKER) (test jleg=135) 13.9 K/ L 4.0-10.0 RED BLOOD CELL COUNT (BEAKER) (test nbny=982) 4.54 M/ L 4.20-5.80 HEMOGLOBIN (BEAKER) (test qcwf=456) 15.2 GM/DL 13.0-16.8 HEMATOCRIT (BEAKER) (test txlf=177) 45.1 % 40.0-50.0 MEAN CORPUSCULAR VOLUME (BEAKER) (test nvsu=452) 99.4 fL 82.0-98.0 MEAN CORPUSCULAR HEMOGLOBIN (BEAKER) (test 33.4 pg 27.0-33.0 bdya=974) MEAN CORPUSCULAR HEMOGLOBIN CONC (BEAKER) (test 33.6 GM/DL 32.0-36.0 njwz=208) RED CELL DISTRIBUTION WIDTH (BEAKER) (test 13.2 % 10.3-14.2 xzud=932) PLATELET COUNT (BEAKER) (test mijq=641) 230 K/CU MM 150-430 MEAN PLATELET VOLUME (BEAKER) (test gwev=964) 8.1 fL 6.5-10.5 NUCLEATED RED BLOOD CELLS (BEAKER) (test 0 /100 WBC 0-0 ijpi=967) NEUTROPHILS RELATIVE PERCENT (BEAKER) (test 71 % khng=837) LYMPHOCYTES RELATIVE PERCENT (BEAKER) (test 16 % rsca=562) MONOCYTES RELATIVE PERCENT (BEAKER) (test 12 % oprr=310) EOSINOPHILS RELATIVE PERCENT (BEAKER) (test 0 % cxyz=977) BASOPHILS RELATIVE PERCENT (BEAKER) (test 0 % bnnl=001) NEUTROPHILS ABSOLUTE COUNT (BEAKER) (test 9.86 K/ L 1.80-8.00 tmnw=243) LYMPHOCYTES ABSOLUTE COUNT (BEAKER) (test 2.22 K/ L 1.48-4.50 lyav=236) MONOCYTES ABSOLUTE COUNT (BEAKER) (test 1.72 K/ L 0.00-1.30 rmox=299) EOSINOPHILS ABSOLUTE COUNT (BEAKER) (test 0.04 K/ L 0.00-0.50 xhpz=036) BASOPHILS ABSOLUTE COUNT (BEAKER) (test 0.02 K/ L 0.00-0.20 mrvj=214) 0.00
[2019-04-29] MEDS ORDERED: dexAMETHasone 10 MG/ML VIAL ONE (17:44)
[2019-04-29] MEDS ORDERED: ONDANSETRON 4 MG/2 ML VIAL ONE (17:45)
[2019-04-29] MEDS ORDERED: FENTANYL CITR 100 MCG/2 ML ONE (17:45)
[2019-04-29] MEDS ORDERED: NA CHLORIDE 0.9% 500 ML ONE (17:45)
[2019-04-29] MEDS ORDERED: NA CHLORIDE 0.9% 0 ML ONE (17:46)
[2019-04-29 17:59] LABS: Absolute Lymphocytes (CBC) 2.5 K/uL (0.7-4.9); Basophils % 0.8 % (0-1.3); Hematocrit 41.9 % (39.6-49.0); Lymphocytes % 41.6 % (15.3-44.8); MPV 9.7 fL (7.6-11.3); Protime INR 1.04
[2019-04-29 18:18] LABS: ALT/SGPT 12 U/L (12-78); AST/SGOT 8 U/L (15-37); Albumin 3.5 g/dL (3.4-5.0); Alkaline Phosphatase 66 U/L (45-117); BUN Blood Urea Nitrogen 16 mg/dL (7-18); Bicarbonate 26 mmol/L (21-32); Bilirubin Direct < 0.1 mg/dL (0-0.2); Bilirubin Total 0.2 mg/dL (0.2-1.0); Glucose Level 93 mg/dL (74-106); Magnesium 2.2 mg/dL (1.8-2.4); NT PRO-BNP 219 pg/mL (<125); Potassium 4.3 mmol/L (3.5-5.1); Protein, Total 7.2 g/dL (6.4-8.2); Sodium Level 142 mmol/L (136-145); Troponin (Emerg Dept Use Only) < 0.02 ng/mL (0.0-0.045)
--- NOTE | 2019-04-29 18:19 | RAD REPORT ---
EXAM DESCRIPTION: CT - Head Brain Wo Cont - 04/29/2019 6:10 pm CLINICAL HISTORY: Headache COMPARISON: 2019 TECHNIQUE: Computed axial tomography of the head was obtained. IV contrast was not requested. All CT scans are performed using dose optimization technique as appropriate and may include automated exposure control or mA/KV adjustment according to patient size. FINDINGS: An intracranial bleed is not seen . The ventricles are normal in caliber. No extra-axial fluid collection is noted. Mild low-density areas within periventricular, deep and subcortical white matter likely represent isc hemic changes secondary to small vessel disease. Fluid within the sinuses/ mastoids is not seen. IMPRESSION: No acute intracranial abnormality is seen. If patient's symptoms persist MRI of the bra in would be recommended.
[2019-04-29] MEDS ORDERED: METOCLOPRAMIDE 10 MG/2mL INJ ONE (19:20)
[2019-04-29] MEDS ORDERED: KETOROLAC 30 MG/ML INJ ONE (19:20)
[2019-04-29] MEDS ORDERED: MEPERIDINE HCL 25 MG/0.5 ML ONE (19:56)
--- NOTE | 2019-04-29 20:33 | ER ---
Nurse's Notes [facility] Name: Bryan Graf Age: 68 yrs Sex: Male : 1950 Arrival Date: 04/29/2019 Time: 16:51 Bed 17 Private MD: Diagnosis: Headache Presentation: 04/29 16:52 Presenting complaint: Patient states: left sided headache started Saturday. c/o nausea. sv Transition of care: patient was not received from another setting of care. Onset of symptoms was April 26, 2019. 16:52 Method Of Arrival: Wheelchair sv 16:52 Acuity: GELACIO 3 sv 17:10 Risk Assessment: Do you want to hurt yourself or someone else? Patient reports no ca1 desire to harm self or others. Initial Sepsis Screen: Does the patient meet any 2 criteria? No. Patient's initial sepsis screen is negative. Does the patient have a suspected source of infection? No. Patient's initial sepsis screen is negative. Care prior to arrival: None. Historical: - Allergies: 16:52 Aspirin; sv 16:52 PENICILLINS; sv - PMHx: 16:52 Chronic pain; CVA; Hypertension; Pneumonia; Seizures; swelling and pain to L lower leg; sv - PSHx: 16:52 Heart stents; sv - Immunization history:: Adult Immunizations up to date, Flu vaccine is not up to date. - Social history:: Smoking status: Patient uses tobacco products, smokes one pack cigarettes per day. - Ebola Screening: : Patient negative for fever greater than or equal to 101.5 degrees Fahrenheit, and additional compatible Ebola Virus Disease symptoms Patient denies exposure to infectious person Patient denies travel to an Ebola-affected area in the 21 days before illness onset No symptoms or risks identified at this time. Screenin:10 Abuse screen: Denies threats or abuse. Denies injuries from another. Nutritional ca1 screening: No deficits noted. Tuberculosis screening: No symptoms or risk factors identified. Fall Risk IV access (20 points). Ambulatory Aid- Crutches/Cane/Walker (15 pts). Assessment: 17:10 General: Appears in no apparent distress. comfortable, Behavior is calm, cooperative, ca1 appropriate for age. Pain: Complains of pain in right yarsani, right frontal area, right side of the back of head, right temporal area and right occipital area Pain currently is 10 out of 10 on a pain scale. Quality of pain is described as throbbing, Pain began 2-3 days ago. Is continuous, Also complains of decreased appetite, nausea. 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 Speech is normal, Facial symmetry appears normal, Pupils are PERRLA, Intact Reports dizziness, headache in right parietal area, frontal area, occipital area, since Saturday photophobia. 17:10 Cardiovascular: Heart tones S1 S2 present Capillary refill < 3 seconds Patient's skin ca1 is warm and dry. Respiratory: Airway is patent Respiratory effort is even, unlabored, Breath sounds are clear bilaterally. GI: Abdomen is flat, non-distended, Bowel sounds present X 4 quads. Abd is soft and non tender X 4 quads. Reports nausea, vomiting. : No deficits noted. No signs and/or symptoms were reported regarding the genitourinary system. EENT: Reports photophobia. Derm: Skin is intact, is healthy with good turgor, Skin is pink, warm \T\ dry. Musculoskeletal: Circulation, motion, and sensation intact. Capillary refill < 3 seconds, Range of motion: intact in all extremities. 18:00 Reassessment: Patient appears in no apparent distress at this time. Patient and/or ca1 family updated on plan of care and expected duration. Pain level reassessed. Patient is alert, oriented x 3, equal unlabored respirations, skin warm/dry/pink. 19:20 Reassessment: Patient appears in no apparent distress at this time. Patient and/or iw family updated on plan of care and expected duration. Pain level reassessed. Patient is alert, oriented x 3, equal unlabored respirations, skin warm/dry/pink. pt still c/o headache, at times makes him cry, pt medicated for pain, VSS. Vital Signs: 16:55 BP 126 / 63; Pulse 70; Resp 20; Temp 98; Pulse Ox 100% ; Weight 68.04 kg; Height 5 ft. sv 8 in. (172.72 cm); 18:00 BP 130 / 74; Pulse 59; Resp 17 S; Pulse Ox 96% on R/A; ca1 19:55 BP 135 / 76; Pulse 61; Resp 16; Pulse Ox 97% on R/A; Pain 8/10; iw 16:55 Body Mass Index 22.81 (68.04 kg, 172.72 cm) sv ED Course: 16:51 Patient arrived in ED. as 16:52 Arm band placed on. sv 16:55 Triage completed. sv 17:06 Luis Eduardo Stover MD is Attending Physician. nicolette 17:06 Luis Eduardo Sanchez PA is PHCP. cp 17:10 Patient has correct armband on for positive identification. Placed in gown. Bed in low ca1 position. Call light in reach. Side rails up X2. desk monitor on. Pulse ox on. NIBP on. Door closed. Noise minimized. Lights dimmed. Warm blanket given. 17:16 Paula Torres RN is Primary Nurse. ca1 17:38 No provider procedures requiring assistance completed. Initial lab(s) drawn, by co, ca1 sent to lab. Inserted saline lock: 22 gauge in right wrist, using aseptic technique. Blood collected. 18:18 CT Head Brain wo Cont In Process Unspecified. EDMS 20:10 Primary Nurse role handed off by Paula Torres, RN iw 20:10 Zahra Khalil, JOSEPH is Primary Nurse. iw 20:33 Carroll Jacobson MD is Referral Physician. cp 20:49 IV discontinued, intact, bleeding controlled, No redness/swelling at site. Pressure iw dressing applied. Administered Medications: 17:38 Drug: NS 0.9% 500 ml Route: IV; Rate: 500 ml/hr; Site: right wrist; ca1 20:54 Follow up: IV Status: Completed infusion; IV Intake: 500ml rv 17:39 Drug: Zofran 4 mg Route: IVP; Site: right wrist; ca1 20:54 Follow up: Response: No adverse reaction rv 17:42 Drug: Decadron - Dexamethasone 10 mg Route: IVP; Site: right wrist; ca1 20:55 Follow up: Response: No adverse reaction rv 17:45 Drug: fentaNYL (PF) 50 mcg {Note: rass - 0 .} Route: IVP; Site: right wrist; ca1 18:25 Follow up: Response: No adverse reaction; Pain is unchanged, physician notified iw 19:23 Drug: TORadol 30 mg Route: IVP; Site: right hand; iw 19:51 Follow up: Response: No adverse reaction; Pain is unchanged, physician notified iw 19:24 Drug: Reglan 10 mg Route: IVP; Site: right hand; iw 19:51 Follow up: Response: No adverse reaction; Pain is unchanged, physician notified iw 19:55 Drug: Demerol - Meperidine 12.5 mg Route: IVP; Site: right hand; iw 20:54 Follow up: Response: No adverse reaction; Marked relief of symptoms rv Intake: 20:54 IV: 500ml; Total: 500ml. rv Outcome: 20:33 Discharge ordered by . cp 20:49 Discharged to home via wheelchair, with family. iw 20:49 Condition: good 20:49 Discharge instructions given to patient, family, Instructed on discharge instructions, follow up and referral plans. medication usage, Demonstrated understanding of instructions, follow-up care, medications, Prescriptions given X 1. 20:53 Patient left the ED. rv Signatures: Dispatcher [employer] Caroline Andujar RN RN Luis Eduardo Stover MD MD cha Martinez, Amelia as Williams, Irene, RN RN Luis Eduardo Sanchez, Jesse Mast cp, RN RN rv Acob, Paula RN RN ca1 Corrections: (The following items were deleted from the chart) 16:56 16:55 Pulse 70bpm; Resp 20bpm; Pulse Ox 100%; Temp 98F; 68.04 kg; Height 5 ft. 8 in.; sv BMI: 22.8; sv 17:59 17:10 Neuro: Level of Consciousness is awake, alert, obeys commands, Oriented to ca1 person, place, time, situation, Appropriate for age Non Ferr[employer] Material Handler are equal bilaterally Moves all extremities. Speech is normal, Facial symmetry appears normal, Pupils are PERRLA, Intact ca1
--- NOTE | 2019-04-29 20:34 | EDPHYS ---
Physician Documentation [facility] Name: Bryan Graf Age: 68 yrs Sex: Male : 1950 Arrival Date: 04/29/2019 Time: 16:51 Bed 17 Private MD: ED Physician Luis Eduardo Stover HPI: 04/29 17:30 This 68 yrs old Male presents to ER via Wheelchair with complaints of cp Headache. 17:30 The patient complains of pain to the right side of head. cp 17:30 The patient describes the headache as constant. Onset: The symptoms/episode cp began/occurred 3 day(s) ago. Associated signs and symptoms: Pertinent positives: nausea, Photophobia Pertinent negatives: altered mental status, fever, neck stiffness, vision loss, vomiting. Severity of symptoms: in the emergency department the pain is unchanged, despite home interventions, a " 10" out of "10". Headache History: The patient has had previous headaches and this one is similar to previous episodes. Patient reports left side is weak from previous CVA. Denies increased weakness. Historical: - Allergies: 16:52 Aspirin; sv 16:52 PENICILLINS; sv - PMHx: 16:52 Chronic pain; CVA; Hypertension; Pneumonia; Seizures; swelling and pain to L lower leg; sv - PSHx: 16:52 Heart stents; sv - Immunization history:: Adult Immunizations up to date, Flu vaccine is not up to date. - Social history:: Smoking status: Patient uses tobacco products, smokes one pack cigarettes per day. - Ebola Screening: : Patient negative for fever greater than or equal to 101.5 degrees Fahrenheit, and additional compatible Ebola Virus Disease symptoms Patient denies exposure to infectious person Patient denies travel to an Ebola-affected area in the 21 days before illness onset No symptoms or risks identified at this time. ROS: 17:35 Constitutional: Negative for body aches, chills, fever, poor PO intake. cp 17:35 ENT: Negative for injury, pain, and discharge. cp 17:35 Eyes: Positive for photophobia, Negative for redness, vision loss. 17:35 Neck: Negative for pain with movement, pain at rest, stiffness. 17:35 Cardiovascular: Negative for chest pain, edema. 17:35 Respiratory: Negative for cough, shortness of breath, wheezing. 17:35 Abdomen/GI: Positive for nausea, Negative for abdominal pain, vomiting, diarrhea. 17:35 : Negative for urinary symptoms. 17:35 Skin: Negative for rash. 17:35 Neuro: Positive for headache, Negative for altered mental status, seizure activity, weakness. 17:35 All other systems are negative. Exam: 17:45 Constitutional: The patient appears in no acute distress, alert, awake, cp non-diaphoretic, non-toxic, well developed, well nourished, uncomfortable. 17:45 Head/Face: Normocephalic, atraumatic. cp 17:45 Eyes: Periorbital structures: appear normal, Pupils: equal, round, and reactive to light and accomodation, Extraocular movements: intact throughout, Conjunctiva: normal, no exudate, no injection, Sclera: no appreciated abnormality, Lids and lashes: appear normal, bilaterally. 17:45 ENT: External ear(s): are unremarkable, Ear canal(s): are normal, clear, TM's: dullness, bilaterally, Nose: is normal, Mouth: Lips: moist, Oral mucosa: pink and intact, moist, Posterior pharynx: is normal, airway is patent, no erythema, no exudate. 17:45 Neck: ROM/movement: is normal, is supple, without pain, no range of motions limitations, no meningismus, no nuchal rigidity. 17:45 Chest/axilla: Inspection: normal, Palpation: is normal, no crepitus, no tenderness. 17:45 Cardiovascular: Rate: normal, Rhythm: regular, Edema: is not appreciated, JVD: is not appreciated. 17:45 Respiratory: the patient does not display signs of respiratory distress, Respirations: normal, no use of accessory muscles, no retractions, no splinting, no tachypnea, labored breathing, is not present, Breath sounds: are clear throughout, no decreased breath sounds, no stridor, no wheezing. 17:45 Abdomen/GI: Inspection: abdomen appears normal, Palpation: abdomen is soft and non-tender, in all quadrants. 17:45 Skin: no rash present. 17:45 Neuro: Orientation: to person, place \\T\\ time. Mentation: is normal, Motor: moves all fours, weakness noted left upper and lower extremities, Sensation: no obvious gross deficits. 18:08 ECG was reviewed by the Attending Physician. Vital Signs: 16:55 BP 126 / 63; Pulse 70; Resp 20; Temp 98; Pulse Ox 100% ; Weight 68.04 kg; Height 5 ft. sv 8 in. (172.72 cm); 18:00 BP 130 / 74; Pulse 59; Resp 17 S; Pulse Ox 96% on R/A; ca1 19:55 BP 135 / 76; Pulse 61; Resp 16; Pulse Ox 97% on R/A; Pain 8/10; iw 16:55 Body Mass Index 22.81 (68.04 kg, 172.72 cm) sv MDM: 17:06 Patient medically screened. nicolette 17:35 Differential diagnosis: intracerebral hemorrhage, migraine, sinusitis, subarachnoid cp bleed, temporal arteritis, tension headache. 20:32 Data reviewed: vital signs, nurses notes, lab test result(s), EKG, radiologic studies. cp Test interpretation: by ED physician or midlevel provider: ECG. Response to treatment: the patient's symptoms have markedly improved after treatment, VSS. Headache and nausea markedly improved, and as a result, I will discharge patient. 04/29 17:27 Order name: Basic Metabolic Panel 04/29 17:27 Order name: CBC with Diff; Complete Time: 19:00 cp 04/29 19:01 Interpretation: Normal except: RBC 4.30; RDW 15.7. cp 04/29 17:27 Order name: LFT's; Complete Time: 18:22 cp 04/29 18:22 Interpretation: Normal except: AST 8; GLOB 3.7; A/G 0.9. cp 04/29 17:27 Order name: Magnesium; Complete Time: 18:22 cp 04/29 17:27 Order name: NT PRO-BNP; Complete Time: 18:22 cp 04/29 17:27 Order name: PT-INR; Complete Time: 18:22 cp 04/29 17:27 Order name: Troponin (emerg Dept Use Only); Complete Time: 18:22 cp 04/29 17:27 Order name: CT Head Brain wo Cont; Complete Time: 18:22 cp 04/29 18:23 Interpretation: Report reviewed. cp 04/29 17:29 Order name: Basic Metabolic Panel; Complete Time: 18:22 EDMS 04/29 18:23 Interpretation: Normal except: CL 112. cp 04/29 17:27 Order name: EKG; Complete Time: 17:31 cp 04/29 17:27 Order name: Cardiac monitoring; Complete Time: 17:50 cp 04/29 17:27 Order name: EKG - Nurse/Tech; Complete Time: 17:51 cp 04/29 17:27 Order name: IV Saline Lock; Complete Time: 17:50 cp 04/29 17:27 Order name: Labs collected and sent; Complete Time: 17:51 cp 04/29 17:27 Order name: O2 Per Protocol; Complete Time: 17:51 cp 04/29 17:27 Order name: O2 Sat Monitoring; Complete Time: 17:51 cp EC:08 Rate is 57 beats/min. Rhythm is regular. NM interval is normal. QRS interval is normal. cp QT interval is normal. T waves are Inverted in lead III. Interpreted by me. Reviewed by me. Administered Medications: 17:38 Drug: NS 0.9% 500 ml Route: IV; Rate: 500 ml/hr; Site: right wrist; ca1 20:54 Follow up: IV Status: Completed infusion; IV Intake: 500ml rv 17:39 Drug: Zofran 4 mg Route: IVP; Site: right wrist; ca1 20:54 Follow up: Response: No adverse reaction rv 17:42 Drug: Decadron - Dexamethasone 10 mg Route: IVP; Site: right wrist; ca1 20:55 Follow up: Response: No adverse reaction rv 17:45 Drug: fentaNYL (PF) 50 mcg {Note: rass - 0 .} Route: IVP; Site: right wrist; ca1 18:25 Follow up: Response: No adverse reaction; Pain is unchanged, physician notified iw 19:23 Drug: TORadol 30 mg Route: IVP; Site: right hand; iw 19:51 Follow up: Response: No adverse reaction; Pain is unchanged, physician notified iw 19:24 Drug: Reglan 10 mg Route: IVP; Site: right hand; iw 19:51 Follow up: Response: No adverse reaction; Pain is unchanged, physician notified iw 19:55 Drug: Demerol - Meperidine 12.5 mg Route: IVP; Site: right hand; iw 20:54 Follow up: Response: No adverse reaction; Marked relief of symptoms rv Disposition: 04/30 06:12 Co-signature as Attending Physician, Luis Eduardo Stover MD I agree with the assessment and nicolette plan of care. Disposition: 04/29/19 20:33 Discharged to Home. Impression: Headache. - Condition is Stable. - Discharge Instructions: General Headache Without Cause. - Prescriptions for Zofran 4 mg Oral Tablet - take 1 tablet by ORAL route every 12 hours As needed; 20 tablet. - Medication Reconciliation Form, Thank You Letter, Antibiotic Education, Prescription Opioid Use form. - Follow up: Carroll Jacobson MD; When: 1 - 2 days; Reason: Recheck today's complaints. - Problem is new. - Symptoms have improved. Signatures: Dispatcher [employer] EDCaroline Grider, RN Luis Eduardo Qureshi MD MD cha Williams, Irene RN Luis Eduardo Schultz PA PA cp Vicente, Ronaldo RN RN rv Paula Torres RN RN ca1 Corrections: (The following items were deleted from the chart) 04/29 20:53 20:33 04/29/2019 20:33 Discharged to Home. Impression: Headache. Condition is Stable. rv Forms are Medication Reconciliation Form, Thank You Letter, Antibiotic Education, Prescription Opioid Use. Follow up: Carroll Jacobson; When: 1 - 2 days; Reason: Recheck today's complaints. Problem is new. Symptoms have improved. cp
[2019-04-30 00:45] VITALS: TEMP 98
[2019-04-30 01:04] VITALS: BP 130/74; O2SAT 96
--- NOTE | 2019-04-30 11:00 | EKG ---
Test Date: 2019-04-29 Test Time: 18:01:56 Liquor Gallery Operator: TT MEASUREMENT RESULTS: Intervals: Rate: 57 OR: 188 QRSD: 92 QT: 434 QTc: 422 [place]: P: 83 OR: 188 QRS: -18 T: 6 INTERPRETIVE STATEMENTS: Sinus bradycardia Otherwise normal ECG Compared to ECG 03/20/2019 10:54:45 Sinus rhythm no longer present Electronically Signed On 04-30-19 10:58:22 CHIEF OF FIELD OPERATIONS by Manuelito Nolan
== END 2019-04-29 20:53 | disposition home or self-care (01) ==
LOC: ER 16:49
DX: R51 Headache (principal); Z88.0 Allergy status to penicillin; F17.210 Nicotine dependence, cigarettes, uncomplicated
CPT/HCPCS: 96361; 93005; 85025; 80048; 36415; 83735; 85610; 80076; 84484; 83880; 70450; 96375; 96374; 99284; J2765; J3010; J1100; J2175; J7040; J2405; J7030

== ENCOUNTER 2019-11-24 13:54 | Emergency (ER) | payer OTHER ==
[2019-11-24] MEDS ORDERED: ACETAMINOPHEN 325 MG TABLET ONE (14:20)
--- OUTSIDE RECORDS SUMMARY | 2019-11-24 14:23 | XMS REPORT | Clinical Summary ---
:1950 Author Organization Formerly [facility] Address [address] [place] [address] Care Team Providers Name Role Phone Rosmery Rebecca Primary Care Provider Adeel Ortiz Unavailable Allergies Active Allergy Reactions Severity Noted Date Comments Aspirin Hives 06/28/2010 Aspirin (Tartrazine Only) Hives 06/30/2016 Penicillins Hives, Swelling 06/28/2010 Medications Medication Sig Dispensed Refills Start Date End Date Status acetaminophen Take 500 mg by 0 A ctive (TYLENOL) 500 MG mouth every 4 tablet (four) hours as needed for Pain. arformoterol Take 2 mLs (15 mcg 120 mL 0 12/21/2016 Active (BROVANA) 15 mcg/2 mL total) by nebulizer solution nebulization 2 (two) times daily. rivaroxaban (XARELTO) Take 1 tablet (15 30 tablet 0 12/21/2016 Active 15 mg Tab tablet mg total) by mouth daily with dinner. rOPINIRole (REQUIP) 2 Take 0.5 tablets (1 15 tablet 0 12/22/19 17 Active MG tablet mg total) by mouth nightly. melatonin 5 mg Tab Take 1 tablet (5 mg 30 tablet 0 12/21/2016 Active tablet total) by mouth nightly. pantoprazole Take 1 tablet (40 30 tablet 0 12/21/2016 Active (PROTONIX) 40 MG mg total) by mouth tablet daily. Active Problems Problem Noted Date Transient alteration of awareness 12/12/2016 Altered mental status 12/07/2016 Ptosis, left 12/07/2016 COPD (chronic obstructive pulmonary disease) 7 S/P CABG x 3 11/28/2016 Acute pulmonary insufficiency following thoracic surge ry 11/28/2016 Postoperative anemia due to acute blood loss 7 NSTEMI (non-ST elevated myocardial infarction) 017 Paroxysmal atrial fibrillation 11/26/2016 Pulmonary embolism 11/26/2016 Left-sided muscle weakness 10/08/2016 Muscle cramps 10/08/2016 Tension type headache 10/08/2016 CVA (cerebral vascular accident) 10/06/2016 Seizure disorder 10/06/2016 History of atrial fibrillation 10/06/2016 Chronic anticoagulation 10/06/2016 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 Last Filed Vital Signs Not on file Plan of Treatment Not on file Results Not on fileafter 11/23/2018 Insurance Payer Benefit Plan / Group Subscriber ID Type Phone A ddress MEDICARE MEDICARE A B xxxxxxxxxx Medicare MEDICAID MEDICAID [place] xxxxxxxxx Medicaid Advance Directives For more information, please contact:[address] [phone] Code Status Date Activated Date Inactivated Comments [...]
--- OUTSIDE RECORDS SUMMARY | 2019-11-24 14:24 | XMS REPORT | Continuity of Care Document ---
:1950 Author Organization [employer] Care Team Providers Name Role Phone [employer] Unavailable Un available Problems Problem Status Onset Classification Date Comments Sourc e Date Reported CVA Active 09/13/19 [facility] Rehabilita tion Dysarthria Active Problem 10/03/2011 [facility] [place] [facility] Weakness Active Problem 10/03/2011 [facility] [place] [facility] CVA Active Rehabilita tion Medications Medication Details Route Status Patient Ordering Order Source Instructions Provider Date Soma 1, PO, PO Active [place] [facility] 012 Medical Allowed, TAB Center OXYcodone 1, PO, PRN, [place] PO [place] [facility] [place], 012 Medical Substitution Center Allowed, TAB Ambien 5 mg 5 mg, 1 tab, PO, PO Active [facility] [place] oral tablet Bedtime, 30 tab, 012 Med ical Substitution Center Allowed, TAB Keppra 750 mg 750 mg, 1 tab, PO Active [facility] [place] oral tablet PO, Q12H, 60 tab, 012 Me dical Substitution Center Allowed, TAB famotidine 20 20 mg, 1 tab, PO, PO Active [facility] [place] mg oral tablet BID, 60 tab, 012 Medi melissa Substitution Center Allowed, TAB Colace 100 mg 100 mg, 1 cap, PO Active [facility] [place] oral capsule PO, BID, 60 cap, 012 Me dical Substitution Center Allowed, CAP Plavix 75 mg 75 mg, 1 tab, PO, PO Active [facility] [place] oral tablet Daily, 30 tab, 012 Medic al Substitution Center Allowed, TAB atorvastatin 80 mg, 1 tab, PO, PO Active [facility] [place] 80 mg oral QPM, 30 tab, 012 Medical tablet Substitution Center Allowed, TAB Percocet 5/325 1 tab, PO, BID, PO Active [facility] [place] oral tablet PRN, 60 tab, as 012 Medi melissa needed for pain, Center Substitution Allowed, Maintenance, TAB Ambien CR 6.25 mg, Route: PO No [place] PO, Bedtime, Longer 012 Medical Start date: Active Center 09/21/11 21:00:00, Duration: 30 day, Stop date: 10/20/11 21:00:00 Ambien 5 mg, 1 tab, PO No [place] [facility] Route: PO, Drug Longer 012 Medical form: TAB, Active Center Bedtime, Start date: 09/21/11 21:00:00, Duration: 30 day, Stop date: 10/20/11 21:00:00 Percocet 5/325 1 tab, Route: PO, PO No [place] [facility] oral tablet Drug Form: TAB, Longer 012 Medi melissa BID-10-24, Start Active Center date: 09/21/11 9:11:00, Duration: 30 day, Stop date: 10/21/11 7:00:00 Plavix 75 mg, 1 tab, PO No [place] [facility] Route: PO, Drug Longer 012 Medical form: TAB, Daily, Active Center Start date: 09/15/11 9:00:00, Duration: 30 day, Stop date: 10/14/11 9:00:00 Saline Flush 3 mL, Route: IVP, IVP Erika Zuniga [facility] [place] 0.9% Drug Form: INJ, Longer 012 Medical Q8H, PRN Line Active Center Flush, Start date: 09/14/11 22:49:00, Duration: 30 day, Stop date: 10/14/11 22:48:00, Administer at least once every 8 hoursAdminister at least once every 8 hours Milk of 30 mL, Route: PO, PO Erika Z[facility]iga [place] [facility] [place] Drug Form: SUSP, Longer 012 Medica l Daily, PRN Active Center Constipation, Start date: 09/14/11 22:49:00, Duration: 30 day, Stop date: 10/14/11 22:48:00 bisacodyl 10 mg, 1 supp, MN No [place] Route: MN, Drug Longer 012 Medical form: SUPP, Active Center Bedtime, PRN Constipation, Start date: 09/14/11 22:49:00, Duration: 30 day, Stop date: 10/14/11 22:48:00 zolpidem 5 mg, 1 tab, PO No [place] [facility] Route: PO, Drug Longer 012 Medical form: TAB, Active Center Bedtime, PRN Insomnia, Start date: 09/14/11 22:49:00, Duration: 30 day, Stop date: 10/14/11 22:48:00 Keppra 750 mg 750 mg, 3 tab, PO No [place] [facility] oral tablet Route: PO, Drug Longer 012 Medi melissa form: TAB, Q12H, Active Center Start date: 09/14/11 21:00:00, Duration: 30 day, Stop date: 10/14/11 9:00:00 famotidine 20 20 mg, 1 tab, PO No [place] oral tablet Route: PO, Drug Longer 012 M edical form: TAB, BID, Active Center Start date: 09/14/11 17:00:00, Duration: 30 day, Stop date: 10/14/11 9:00:00 Colace 100 mg 100 mg, 1 cap, PO No [place] [facility] oral capsule Route: PO, Drug Longer 012 Med ical form: CAP, BID, Active Center Start date: 09/14/11 17:00:00, Duration: 30 day, Stop date: 10/14/11 9:00:00 atorvastatin 80 mg, 1 tab, PO [place] Route: PO, Drug Long[place] 012 Medical form: TAB, QPM, Active Center Start date: 09/14/11 17:00:00, Duration: 30 day, Stop date: 10/13/11 17:00:00 enoxaparin 40 mg, 0.4 mL, SUB-Q No [place] Route: SUB-Q, Longer 012 Medical Drug form: INJ, Active Center Q24H, Start date: 09/14/11 15:00:00, Duration: 30 day, Stop date: 10/13/11 9:00:00 Percocet 5/325 1 tab, Route: PO, PO E[place] Z[place] oral tablet Drug Form: TAB, Longer 012 Medi melissa Q4H, PRN Pain, Active Center Start date: 09/14/11 14:58:00, Duration: 30 day, Stop date: 10/14/11 14:57:00 Allergies, Adverse Reactions, Alerts Substance Category Reaction Severity Reaction Status Date Comments S ource type Reported aspirin drug Allergy Active [facility] codeine drug Allergy Active [facility] penicillins drug Allergy Active [facility] Immunizations No Data Provided for This Section Results Order Name Results Value Reference Date Interpretation Comments [place] [facility] [facility] CHEMISTRY AGAP 14.0 10.0 - 09/28 Normal [place] 20.0 Medical Center CHEMISTRY Chloride Lvl 110 95 - 109 09/28 [facility] Medical Center CHEMISTRY CO2 26 24 - 32 09/28 Normal [facility] Center CHEMISTRY Calcium Lvl 9.1 8.5 - 10.5 09/28 Normal [facility] Medical Center CHEMISTRY Sodium Lvl 146 135 - 145 09/28 [facility] Medical Center CHEMISTRY Potassium Lvl 4.0 3.5 - 5.1 09/28 Normal [facility] CHEMISTRY BUN 11 7 - 22 09/28 Normal Medical Center CHEMISTRY Glucose Lvl 107 70 - 99 09/28 [place] <sup>2</sup>I T nterpretive Medical Data: Adult Center reference range values reflect the clinical guidelines of the [place] [employer]. CHEMISTRY Creatinine 0.7 0.5 - 1.4 09/28 Normal [facility] l /2011 Medical Center HEMATOLOGY RDW 13.6 11.5 - 09/28 Normal [facility] 14.5 Medical Center HEMATOLOGY MCV 98.9 80.0 - 09/28 [facility] [place] 94.0 Medical Center HEMATOLOGY Hct 38.8 42.0 - 09/28 LOW [place] 54.0 /2011 Medical Center HEMATOLOGY MPV 9.7 7.4 - 10.4 09/28 Normal Medical Center HEMATOLOGY Platelet 188 133 - 450 09/28 Normal [facility] [place] HEMATOLOGY MCHC 34.5 32.0 - 09/28 Normal [place] 36.0 /2011 Medical Center HEMATOLOGY MCH 34.2 27.0 - 09/28 [facility] [place] 31.0 /2011 Medical Center HEMATOLOGY Hgb 13.4 14.0 - 09/28 LOW [place] 18.0 /2011 Medical Center HEMATOLOGY WBC 5.8 3.7 - 10.4 09/28 Normal [facility] HEMATOLOGY RBC 3.92 4.70 - 09/28 LOW [place] 6.10 Medical Center HEMATOLOGY Monocytes # 0.8 0.0 - 0.8 09/28 [facility] HEMATOLOGY Lymphocytes # 2.4 1.0 - 5.5 09/28 [place] [facility] HEMATOLOGY Basophils # 0.0 0.0 - 0.2 09/28 [place] [facility] HEMATOLOGY Eosinophils # 0.2 0.0 - 0.5 09/28 [place] [facility] HEMATOLOGY Lymphocytes 41.3 20.0 - 09/28 [facility] [place] 40.0 Medical Center HEMATOLOGY Segs 41.0 45.0 - 09/28 LOW [place] 75.0 [facility] Center HEMATOLOGY Eosinophils 3.9 0.0 - 4.0 09/28 Normal a [facility] HEMATOLOGY Segs-Bands # 2.4 1.5 - 8.1 09/28 Normal [facility] HEMATOLOGY Basophils 0.3 0.0 - 1.0 09/28 Normal [facility] HEMATOLOGY Monocytes 13.5 2.0 - 12.0 09/28 HI [facility] BEDSIDE Comment1 Notify 09/25 NA [facility] GLUCOSE RN/ Medical TESTING Center BEDSIDE Gluc POC 121 70 - 99 09/25 [place] <sup>1</sup>I [facility] GLUCOSE Lifscn nterpretive Medical TESTING Data: Center Upper Reportable Limit: 200 mg/dL. CHEMISTRY CO2 30 24 - 32 09/24 Normal [facility] CHEMISTRY Calcium Lvl 9.0 8.5 - 10.5 09/24 Normal [facility] Center CHEMISTRY Glucose Lvl 86 70 - 99 09/24 Normal <sup>3</sup>I T ex nterpretive Medical Data: Adult Center reference range values reflect the clinical guidelines of the [place] [employer]. CHEMISTRY Potassium Lvl 4.4 3.5 - 5.1 09/24 Normal [place] [facility] CHEMISTRY Chloride Lvl 107 95 - 109 09/24 Normal [facility] CHEMISTRY BUN 13 7 - 22 09/24 Normal Medical Center CHEMISTRY Creatinine 0.7 0.5 - 1.4 09/24 Normal [place] [facility] Center CHEMISTRY Sodium Lvl 144 135 - 145 09/24 Normal [facility] CHEMISTRY AGAP 11.4 10.0 - 09/24 Normal [place] 20.0 [facility] HEMATOLOGY Basophils 0.5 0.0 - 1.0 09/24 Normal [facility] [place] HEMATOLOGY Eosinophils 3.1 0.0 - 4.0 09/24 Normal a [facility] HEMATOLOGY Segs-Bands # 3.1 1.5 - 8.1 09/24 Normal [facility] HEMATOLOGY Lymphocytes # 2.3 1.0 - 5.5 09/24 Normal [facility] HEMATOLOGY Monocytes # 0.9 0.0 - 0.8 09/24 HI a [facility] HEMATOLOGY Segs 48.3 45.0 - 09/24 Normal [place] 75.0 [facility] HEMATOLOGY Lymphocytes 34.9 20.0 - 09/24 Normal [place] 40.0 [facility] HEMATOLOGY Macrocyte 1+ None Seen 09/24 ABN *ABN* /2011 Medical (09/25/2011 05:14:00) Ce nter HEMATOLOGY Eosinophils # 0.2 0.0 - 0.5 09/24 Normal Te [facility] HEMATOLOGY Monocytes 13.2 2.0 - 12.0 09/24 HI [facility] HEMATOLOGY Basophils # 0.0 0.0 - 0.2 09/24 Normal [facility] HEMATOLOGY MPV 9.1 7.4 - 10.4 09/24 Normal [facility] HEMATOLOGY Platelet 183 133 - 450 09/24 Normal [facility] [place] HEMATOLOGY RDW 14.3 11.5 - 09/24 Normal [place] 14.5 [facility] HEMATOLOGY MCHC 34.1 32.0 - 09/24 Normal [place] 36.0 [facility] HEMATOLOGY Hct 42.1 42.0 - 09/24 Normal [place] 54.0 [facility] HEMATOLOGY Hgb 14.4 14.0 - 09/24 Normal [place] 18.0 Medical Center HEMATOLOGY WBC 6.4 3.7 - 10.4 09/24 Normal Medical Center HEMATOLOGY MCV 99.3 80.0 - 06/12 HI [place] 94.0 /2011 Medical Center HEMATOLOGY RBC 4.24 4.70 - 09/24 LOW [place] 6.10 /2011 Medical Center HEMATOLOGY MCH 33.9 27.0 - 09/24 [facility] [place] 31.0 /2011 Medical Center CHEMISTRY Glucose Lvl 95 70 - 99 09/17 Normal <sup>4</sup>I [place] /2011 nterpretive Medical Data: Adult Center reference range values reflect the clinical guidelines of the [place] [employer]. CHEMISTRY BUN 9 7 - 22 06 Normal [facility] Center CHEMISTRY Creatinine 0.6 0.5 - 1.4 09/17 Normal [place] L[facility] Medical Center CHEMISTRY Sodium Lvl 141 135 - 145 06 Normal Medical Center CHEMISTRY Potassium Lvl 4.1 3.5 - 5.1 09/17 Normal [facility] CHEMISTRY Chloride Lvl 107 95 - 109 09/17 Normal Medical Center CHEMISTRY CO2 25 24 - 32 09/17 Normal Medical Center CHEMISTRY Calcium Lvl 9.0 8.5 - 10.5 09/17 Normal [facility] Center CHEMISTRY AGAP 13.1 10.0 - 09/17 Normal [place] 20.0 Medical Center HEMATOLOGY Macrocyte 1+ None Seen 09/17 [facility] [place] *ABN* /2011 Medical (09/18/2011 04:04:00) Ce nter HEMATOLOGY Monocytes # 0.9 0.0 - 0.8 09/17 [facility] [place] [facility] HEMATOLOGY Lymphocytes # 2.1 1.0 - 5.5 09/17 [place] [facility] HEMATOLOGY Segs 54.6 45.0 - 06/05 Normal [place] 75.0 Medical Center HEMATOLOGY Eosinophils # 0.2 0.0 - 0.5 09/17 [place] [facility] HEMATOLOGY Eosinophils 2.3 0.0 - 4.0 09/17 [place] [facility] HEMATOLOGY Monocytes 12.9 2.0 - 12.0 09/17 [facility] Medical Center HEMATOLOGY Lymphocytes 29.9 20.0 - 06/05 Normal [place] 40.0 Medical Center HEMATOLOGY Basophils 0.3 0.0 - 1.0 09/17 Normal Medical Center HEMATOLOGY Basophils # 0.0 0.0 - 0.2 / [place] [facility] [place] HEMATOLOGY Segs-Bands # 3.8 1.5 - 8.1 09/17 Normal [place] [facility] HEMATOLOGY Hct 43.5 42.0 - 09/17 Normal [place] 54.0 /2011 [facility] HEMATOLOGY MCV 99.4 80.0 - / HI [place] 94.0 /2011 [facility] HEMATOLOGY Hgb 14.8 14.0 - 09/17 Normal [facility] 18.0 /2011 [facility] HEMATOLOGY RBC 4.37 4.70 - 06/ LOW [facility] 6.10 /2011 [facility] HEMATOLOGY WBC 6.9 3.7 - 10.4 09/17 Normal [facility] HEMATOLOGY Platelet 178 133 - 450 09/17 Normal [facility] HEMATOLOGY MCHC 34.2 32.0 - 09/17 Normal [facility] 36.0 /2011 [facility] HEMATOLOGY MPV 9.1 7.4 - 10.4 09/17 Normal [facility] HEMATOLOGY RDW 13.9 11.5 - 09/17 Normal [facility] 14.5 /2011 [facility] HEMATOLOGY MCH 33.9 27.0 - 05 [place] [facility] 31.0 /2011 [facility] Microbiolog Culture: 09/15 [facility] y Urine /2011 [facility] URINALYSIS UA 0.1 - 1.0 09/15 NA [facility] Urobilinogen /2011 [facility] URINALYSIS UA WBC <1 0 - 5 09/15 Normal [facility] URINALYSIS UA RBC 1 0 - 2 09/15 Normal [facility] URINALYSIS UA Mucus Few /LPF None Seen 09/15 NA [facility] Medical (09/16/2011 08:25:00) Ce nter URINALYSIS UA Ketones Negative mg/dL Negative 09/15 NA [facility] * Medical (09/16/2011 08:25:00) Ce nter URINALYSIS UA Bili Negative Negative 09/15 NA [facility] * Medical (09/16/2011 08:25:00) Ce nter URINALYSIS UA Blood Negative Negative 09/15 Normal [facility] (09/16/2011 08:25:00) /2011 Fl dicnd Center URINALYSIS UA Nitrite Negative Negative 09/15 Normal [facility] (09/16/2011 08:25:00) Fl dical Center URINALYSIS UA Leuk Est Negative Negative 09/15 Normal [facility] s (09/16/2011 08:25:00) Me dical Center URINALYSIS UA Sq Epi Occasional /LPF Few 09/15 NA [facility] Medical (09/16/2011 08:25:00) Ce nter URINALYSIS UA Glucose Negative mg/dL Negative 09/15 NA Medical (09/16/2011 08:25:00) Ce nter URINALYSIS UA Protein Negative mg/dL Negative 09/15 Normal [facility] (09/16/2011 08:25:00) Fl dical Center URINALYSIS UA Color Yellow Yellow 09/15 NA [facility] Medical (09/16/2011 08:25:00) Ce nter URINALYSIS UA pH 5.5 5.0 - 8.0 09/15 Normal Medical Center URINALYSIS UA Spec Grav 1.017 <=1.030 09/15 Normal Medical Center URINALYSIS UA Turbidity Clear Clear 09/15 Normal [facility] (09/16/2011 08:25:00) Fl dical Center URINALYSIS UA Mucus Few /LPF None Seen 09/14 NA [facility] Medical (09/15/2011 03:42:00) Ce nter URINALYSIS UA RBC 1 0 - 2 09/14 Normal Medical Center URINALYSIS UA Blood Negative Negative 09/14 Normal [facility] (09/15/2011 03:42:00) Me dical Center URINALYSIS UA Nitrite Negative Negative 09/14 Normal [facility] (09/15/2011 03:42:00) Me dical Center URINALYSIS UA Leuk Est Negative Negative 09/14 Normal [facility] (09/15/2011 03:42:00) Me dical Center URINALYSIS UA pH 5.5 5.0 - 8.0 09/14 Normal Medical Center URINALYSIS UA Protein Negative mg/dL Negative 09/14 Normal [facility] (09/15/2011 03:42:00) Me dical Center URINALYSIS UA Glucose Negative mg/dL Negative 09/14 [facility]2011 03:42:00[facility] Ce nter [facility]YSIS U[facility] Ketones Negative [facility] n[facility]YSIS [facility] Bili Negative [facility] 03:42:[facility] Ce nter URINALYSIS UA Color Yellow Yellow 09/14 [facility] (09/15/2011 03:42:00) Ce nter URINALYSIS UA Turbidity Slight Clear 09/14 ABN ABN Medical (09/15/2011 03:42:00) Ce nter URINALYSIS UA Spec Grav 1.012 <=1.030 09/14 Normal [facility] URINALYSIS UA Sq Epi None Seen 09/14 [facility] URINALYSIS UA 0.1 - 1.0 09/14 NA [facility] Urobilinogen [facility] Microbiolog Culture: 09/14 [facility] y [facility] CHEMISTRY TSH 3.390 0.360 - 09/14 Normal [facility] 3. [facility] CHEMISTRY T4 8.5 4.7 - 13.3 09/14 Normal [facility] CHEMISTRY T3 Uptake 33 31 - 39 09/14 Normal [facility] CHEMISTRY TSH 3.390 0.360 - 09/14 Normal [facility] 3.74 [facility] CHEMISTRY Total Protein 6.4 6.4 - 8.4 09/14 Normal [facility] CHEMISTRY AST 14 0 - 37 09/14 Normal [facility] CHEMISTRY Bili Total 0.4 0.2 - 1.3 09/14 Normal [facility] CHEMISTRY ALT 24 0 - 65 09/14 Normal [facility] CHEMISTRY Alk Phos 81 39 - 136 09/14 Normal [facility] CHEMISTRY Albumin Lvl 3.3 3.5 - 5.0 09/14 LOW [facility] CHEMISTRY A/G Ratio 1.1 0.7 - 1.6 09/14 Normal [facility] CHEMISTRY B/C Ratio 14 6 - 25 09/14 Normal [facility] CHEMISTRY Globulin 3.1 2.0 - 4.0 06/ Normal [facility] CHEMISTRY FTI 2.8 06/ NA [facility] HEMATOLOGY PTT 32.4 22.9 - 06 Normal <sup>6</sup>I [place] 35.8 /2011 nterpretive Medical Data: [facility] Therapeutic Range: 57 - 92 Seconds HEMATOLOGY PT 13.0 12.0 - 06 Normal [facility] 14.7 [facility] HEMATOLOGY INR 0.98 0.85 - 06 Normal <sup>5</sup>I [facility] [place] [facility] 1. /2011 nterpretive Medical Data: Center RECOMMENDED RANGES FOR PROTIME INR: 2.0-3.0 for most medical and surgical thromboemboli c states. 2.5-3.5 for artificial heart valves and recurrent embolism. INR SHOULD BE USED ONLY FOR PATIENTS ON STABLE ANTICOAGULANT THERAPY. Pathology Reports No Data Provided for This Section Diagnostic Reports No Data Provided for This Section Consultation Notes No Data Provided for This Section Discharge Summaries No Data Provided for This Section History and Physicals No Data Provided for This Section Vital Signs Vital Sign Value Date Comments Source Systolic (mm Hg) 119 10/01/2011 [facility] Respitory Rate 20 10/01/[address] [facility] Heart Rate 53 10/01/2011 [facility] Temperature Oral (F) 97.6 F 10/01/2011 [facility] Diastolic (mm Hg) 66 10/01/2011 [facility] Diastolic (mm Hg) 76 10/01/2011 [facility] Respitory Rate 20 10/01/[address] [facility] Heart Rate 60 10/01/2011 [facility] Systolic (mm Hg) 125 10/01/2011 [facility] Temperature Oral (F) 98.1 F 10/01/2011 [facility] Systolic (mm Hg) 126 09/30/2011 [facility] Diastolic (mm Hg) 82 09/30/2011 [facility] Heart Rate 52 09/30/2011 [facility] Respitory Rate 18 09/30/[address] [facility] Temperature Oral (F) 97.8 F 09/30/2011 [facility] Height 172.72 cm 09/15/2011 [facility] Weight 76.364 09/15/2011 [facility] Encounters Location Location Encounter Encounter Reason Attending ADM DC Stat us Source Details Type Number For Provider Date Date Visit [id number] [place] 09/13 09/30 Discharge [facility] d Rehabilit ation Procedures No Data Provided for This Section Assessment and Plan No Data Provided for This Section Plan of Care No Data Provided for This Section Social History No Data Provided for This Section Family History No Data Provided for This Section Advance Directives No Data Provided for This Section Functional Status No Data Provided for This Section
--- OUTSIDE RECORDS SUMMARY | 2019-11-24 14:28 | XMS REPORT | Continuity of Care Document ---
:1950 Author Organization [facility] t Address [address] [place] [address] Care Team Providers Name Role Phone Rebecca Botello Primary Care Physician MARCIAL NICHOLS Attending Clinician Unavailable ASA Attending Clinician Unavailable NURYS DC Attending Clinician Unavailable ANTONIA RUSSELL Attending Clinician Unavailable Taylor GUAMAN Attending Clinician Unavailable ZHEN BULL Attending Clinician Unavailable MARCIAL NICHOLS Admitting Clinician Unavailable ASA Admitting Clinician Unavailable NURYS DC Admitting Clinician Unavailable ANTONIA RUSSELL Admitting Clinician Unavailable Taylor GUAMAN Admitting Clinician Unavailable ZHEN BULL Admitting Clinician Unavailable Problems Condition Condition Condition Status Onset Resolution Last Treating Co mments Source Name Details Category Date Date Treatment Clinician Date Transient Transient Disease Active [facility] alteration alteration 8-30 Thao kes - of of 00:00: Medical awareness awareness 00 Cent er Altered Altered Disease Active [facility] mental mental 8-25 [facility] status status 00:00: Medical 00 [place] Ptosis, Ptosis, Disease Active [facility] left left 8-25 [facility] - 00:00: Medical 00 [place] COPD COPD Disease Active [facility] (chronic (chronic 8-25 [facility] - obstructiv obstructiv 00:00: In dical e e 00 Center pulmonary pulmonary disease) disease) S/P CABG x S/P CABG x Disease Active [facility] 3 3 8-16 [facility] 00:[facility]: Medical 00 Center Acute Acute Disease Active [facility] pulmonary pulmonary 8-16 [facility] - insufficie insufficie 00:00: Me dical ncy ncy 00 Center following following thoracic thoracic surgery surgery Postoperat Postoperat Disease Active [facility] marilou anemia marilou anemia 8-16 Thao kes - due to due to 00:00: Medical acute acute 00 Center blood loss blood loss NSTEMI NSTEMI Disease Active [facility] (non-ST (non-ST 8-15 [facility] - elevated elevated 00:00: Medica l myocardial myocardial 00 Ce nter infarction infarction ) ) Paroxysmal Paroxysmal Disease Active [facility] atrial atrial 8-14 [facility] - fibrillati fibrillati 00:00: Me dical on on 00 Center Pulmonary Pulmonary Disease Active [facility] embolism embolism 8-14 [facility] - 00:00: Medical 00 [place] Left-sided Left-sided Disease Active [facility] muscle muscle 6-26 [facility] - weakness weakness 00:00: Medica l 00 Center Muscle Muscle Disease Active [facility] cramps cramps 6-26 [facility] 00:[facility]: Medical 00 Center Tension Tension Disease Active [facility] type type 6-26 [facility] - headache headache 00:00: Medica l 00 Center CVA CVA Disease Active [facility] (cerebral (cerebral 6-24 [facility] - vascular vascular 00:00: Medica l accident) accident) 00 Cent er Seizure Seizure Disease Active [facility] disorder disorder 6-24 [facility] - 00:00: Medical 00 [place] History of History of Disease Active [facility] atrial atrial 6-24 [facility] - fibrillati fibrillati 00:00: Me dical on on Center Chronic Chronic Disease Active [facility] anticoagul anticoagul 6-24 Thao kes - ation ation 00:00: Medical 00 [place] Cellulitis Cellulitis Disease Active [facility] of 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 00:00: 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 space of 00 Center mouth mouth Mandibular Mandibular Disease Active [facility] abscess abscess 3-18 [facility] - 00:00: Medical 00 Center CVA Diagnosis Active 2011-09-21 Mem oria 5-31 14:49:00 l CVA 06:00: Miguel 00 Active 09/13/2011 [facility] Dysarthria Problem Active 2011-10-03 M emoria 08:09:33 l Miguel Dysarthria Active Problem 10/03/2011 [facility] Weakness Problem Active 2011-10-03 Mem oria 08:09:33 l Weakness Richard n Active Problem 10/03/2011 [facility] CVA Diagnosis Active 2011-09-21 Mem oria 14:49:00 l CVA Miguel Active Rehabilita tion Allergies, Adverse Reactions, Alerts Allergy Allergy Status Severity Reaction(s) Onset Inactive Treating Comm ents Source Name Type Date Date Clinician Aspirin Propensi Active Hives [facility] (Tartraz ty to 3-18 [facility] - ine adverse 00:00: Medical Only) reaction 00 Center s Aspirin Propensi Active Hives [facility] ty to 3-16 [facility] - adverse 00:00: Medical reaction 00 [place] s Penicill Propensi Active Hives, [facility] ins ty to Swelling 3-16 [facility] - adverse 00:00: Medical reaction 00 [place] s aspirin aspirin Active Memoria l Miguel codeine codeine Active Memoria l [place] penicill penicill Active Memori a ins ins l Miguel Family History Family Member Diagnosis Comments Start Date Stop Date Source Natural mother Diabetes [facility] Social History Social Habit Start Date Stop Date Quantity Comments Source Sex Assigned At [facility] Cigarettes smoked 2016-12-13 2016-12-13 [facility] - current (pack per 00:00:00 00:00:00 Medical Center day) - Reported Smoking Status Start Date Stop Date Source Current every day smoker 2016-12-13 00:00:00 [facility] Medications Ordered Filled Start Stop Current Ordering Indication Dosage Frequency Signature Comments Components Source Medication Medication Date Date Medication? Clinician (SIG) Name Name arformotero Yes 15ug Q.5D Take [address] l (BROVANA) 12-21 (15 mcg [facility] - 15 mcg/2 mL 00:00: total) by M edical nebulizer 00 nebulizati Cent er solution on 2 (two) times daily. rivaroxaban Yes 15mg Take [address] [facility] (XARELTO) 12-21 tablet (15 [facility] - 15 mg Tab 00:00: mg total) Med ical tablet 00 by mouth Center daily with dinner. rOPINIRole 2017-0 Yes 1mg QD Take 0.[address] [facility] (REQUIP) 2 9-08 tablets (1 Janae es - MG tablet 00:00: mg total) Med ical 00 by mouth Center nightly. melatonin 5 2017-0 Yes 5mg QD Take [address] [facility] mg Tab 9-08 tablet (5 [facility] - tablet 00:00: mg total) Medica l 00 by mouth Center nightly. pantoprazol 2017-0 Yes 40mg QD Take [address] [facility] e 9-08 tablet (40 [facility] - (PROTONIX) 00:00: mg total) Me dical 40 MG 00 by mouth Center tablet daily. acetaminoph 2017-0 Yes 500mg Take [address] en 8-15 mg by [facility] - (TYLENOL) 01:49: mouth Medical 500 MG 06 every 4 Center tablet (four) hours as needed for Pain. Soma 2011-0 Yes 1, PO, Memoria 6-16 Substituti l 23:36: on Miguel 37 Allowed, TAB OXYcodone 2011-0 Yes 1, PO, Memori a 6-16 PRN, as l 23:36: needed for [place] 23 pain, Substituti on Allowed, TAB Ambien 5 mg 2011-0 Yes Meilani H 5 mg, 1 Memoria oral tablet 6-15 [place] tab, PO, l 19:27: Bedtime, [place] 59 30 tab, Substituti on Allowed, TAB Keppra 750 2011-0 Yes Meilani H 750 mg, 1 Memoria mg oral 6-15 [place] tab, PO, l tablet 19:27: Q12H, 60 Miguel 52 tab, Substituti on Allowed, TAB famotidine 2011-0 Yes Meilani H 20 mg, 1 Memoria 20 mg oral 6-15 [place] tab, PO, l tablet 19:27: BID, 60 [place] 44 tab, Substituti on Allowed, TAB Colace 100 2012-0 Yes Meilani H 100 mg, 1 Memoria mg oral 6-15 [place] cap, PO, l capsule 19:27: BID, 60 Miguel 40 cap, Substituti on Allowed, CAP Plavix 75 2012-0 Yes Meilani H 75 mg, 1 Memoria mg oral 6-15 [place] tab, PO, l tablet 19:27: Daily, 30 Richard n 36 tab, Substituti on Allowed, TAB atorvastati Yes Meilani H 80 mg, 1 Memoria n 80 mg 6-15 [place] tab, PO, l oral tablet 19:27: QPM, 30 Her maloney 34 tab, Substituti on Allowed, TAB Percocet Yes Meilani H 1 tab, PO, Memoria 5/325 oral 6-15 [place] BID, PRN, l tablet 19:27: 60 tab, as Amira nn 30 needed for pain, Substituti on Allowed, Maintenanc e, TAB Ambien CR No Marcial De 6.25 mg, Memoria 6-09 [place] Route: PO, l 02:00: Bedtime, Miguel 00 Start date: 09/21/11 21:00:00, Duration: 30 day, Stop date: 10/20/11 21:00:00 Ambien 2011-0 No Marcial De 5 mg, 1 Me moria 6-09 West tab, l 02:00: Route: PO, Miguel Drug form: TAB, Bedtime, Start date: 09/21/11 21:00:00, Duration: 30 day, Stop date: 10/20/11 21:00:00 Percocet 2011-0 No Marcial De 1 tab, M emoria 5/325 oral -08 [place] Route: PO, l tablet 14:11: Drug Form: Amira nn 00 TAB, BID-10-24, Start date: 09/21/11 9:11:00, Duration: 30 day, Stop date: 10/21/11 7:00:00 Plavix 2011- No Jeff 75 mg, 1 Memori a 6-02 Jef tab, l 14:00: Ef[place] Route: PO, Richard n 00 Drug form: TAB, Daily, Start date: 09/15/11 9:00:00, Duration: 30 day, Stop date: 10/14/11 9:00:00 Saline 2011-0 No Jeff 3 mL, Memoria Flush 0.9% 09-14 Jef Route: l 03:49: [place] IVP, Drug Form: INJ, Q8H, PRN Line Flush, Start date: 09/14/11 22:49:00, Duration: 30 day, Stop date: 10/14/11 22:48:00, Administer at least once every 8 hoursAdmin ister at least once every 8 hours Milk of 2011- No Jeff 30 mL, Memoria Magnesia 09-14 Jef Route: PO, l 03:49: [place] Drug Form: Richard n 00 SUSP, Daily, PRN Constipati on, Start date: 09/14/11 22:49:00, Duration: 30 day, Stop date: 10/14/11 22:48:00 bisacodyl No Jeff 10 mg, 1 Mem oria 09-14 Jef supp, l 03:49: Efrain Route: NV, Richard n 00 Drug form: SUPP, Bedtime, PRN Constipati on, Start date: 09/14/11 22:49:00, Duration: 30 day, Stop date: 10/14/11 22:48:00 zolpidem No Marcial De 5 mg, 1 Memoria 09-14 West tab, l 03:49: Route: PO, [place] 00 Drug form: TAB, Bedtime, PRN Insomnia, Start date: 09/14/11 22:49:00, Duration: 30 day, Stop date: 10/14/11 22:48:00 Keppra 750 No Jeff 750 mg, 3 M emoria mg oral 09-14 Jef tab, l tablet 02:00: Efrain Route: PO, Herm graham 00 Drug form: TAB, Q12H, Start date: 09/14/11 21:00:00, Duration: 30 day, Stop date: 10/14/11 9:00:00 famotidine No Jeff 20 mg, 1 Me moria 20 mg oral 09-13 Jef tab, l tablet 22:00: Ef[place] Route: PO, Herm graham 00 Drug form: TAB, BID, Start date: 09/14/11 17:00:00, Duration: 30 day, Stop date: 10/14/11 9:00:00 Colace 100 No Jeff 100 mg, 1 M emoria mg oral 09-13 Jef cap, l capsule 22:00: Ef[place] Route: PO, Her maloney 00 Drug form: CAP, BID, Start date: 09/14/11 17:00:00, Duration: 30 day, Stop date: 10/14/11 9:00:00 atorvastati 2011-0 No Jeff 80 mg, 1 M emoria n 09-13 Jef tab, l 22:00: [place] Route: PO, Richard n 00 Drug form: TAB, QPM, Start date: 09/14/11 17:00:00, Duration: 30 day, Stop date: 10/13/11 17:00:00 enoxaparin 2011-0 No Jeff 40 mg, 0.4 Memoria 09-13 Jef mL, Route: l 20:00: [place] SUB-Q, [place] 00 Drug form: INJ, Q24H, Start date: 09/14/11 15:00:00, Duration: 30 day, Stop date: 10/13/11 9:00:00 Percocet 2011-0 No Jeff 1 tab, Memori a 5/325 oral 09-13 Jef Route: PO, l tablet 19:58: Efrain Drug Form: Herm graham 00 TAB, Q4H, PRN Pain, Start date: 09/14/11 14:58:00, Duration: 30 day, Stop date: 10/14/11 14:57:00 Vital Signs Vital Name Observation Time Observation Value Comments Source Systolic (mm Hg) 2011-10-01 10:34:00 Luan rial Miguel Respitory Rate 2011-10-01 10:34:00 Memori al [place] Heart Rate 2011-10-01 10:34:00 [facility] Temperature Oral (F) 2011-10-01 10:34:00 97.6 F [facility] Diastolic (mm Hg) 2011-10-01 10:34:00 Mem orial Miguel Diastolic (mm Hg) 2011-10-01 00:44:00 Mem orial [place] Respitory Rate 2011-10-01 00:44:00 Memori al Miguel Heart Rate 2011-10-01 00:44:00 [facility] [place] Systolic (mm Hg) 2011-10-01 00:44:00 Luan rial [place] Temperature Oral (F) 2011-10-01 00:44:00 98.1 F Memorial [place] Systolic (mm Hg) 2011-09-30 21:00:00 Luan rial Miguel Diastolic (mm Hg) 2011-09-30 21:00:00 Mem orial [place] Heart Rate 2011-09-30 21:00:00 [facility] Respitory Rate 2011-09-30 21:00:00 Sita Woodruff Temperature Oral (F) 2011-09-30 10:03:00 97.8 F [facility] Height 2011-09-15 03:49:00 172.72 cm [facility] Weight 2011-09-15 03:49:00 [facility] Procedures This patient has no known procedures. Results Test Description Test Time Test Comments Results Result Comments Source B-TYPE NATRIURETIC FACTOR (BNP) 2016-12-21 05:56:00 Test Item Value Reference Range Interpretation Comme nts B-TYPE NATRIURETIC PEPTIDE (BEAKER) (test code = 700) 136 pg/mL 0-100 H COMPREHENSIVE METABOLIC [id number] 05:53:00 Test Item Value Reference Range Interpretation Comments TOTAL PROTEIN 6.7 gm/dL 6.0-8.3 (BEAKER) (test code = 770) ALBUMIN (BEAKER) 3.1 g/dL 3.5-5.0 L (test code = 1145) ALKALINE PHOSPHATASE 116 U/L 40-150 (BEAKER) (test code = 346) BILIRUBIN TOTAL < mg/dL 0.2-1.2 (BEAKER) (test code = 377) SODIUM (BEAKER) (test 141 meq/L 136-145 code = 381) POTASSIUM (BEAKER) 4.0 meq/L 3.5-5.1 (test code = 379) CHLORIDE (BEAKER) 107 meq/L 98-107 (test code = 382) CO2 (BEAKER) (test 25 meq/L 22-29 code = 355) BLOOD UREA NITROGEN 9 mg/dL 7-21 (BEAKER) (test code = 354) CREATININE (BEAKER) 0.58 mg/dL 0.57-1.25 (test code = 358) GLUCOSE RANDOM 94 mg/dL 70-105 (BEAKER) (test code = 652) CALCIUM (BEAKER) 8.7 mg/dL 8.4-10.2 (test code = 697) AST (SGOT) (BEAKER) 67 U/L 5-34 H (test code = 353) ALT (SGPT) (BEAKER) 88 U/L 6-55 H (test code = 347) EGFR (BEAKER) (test 139 ESTIMATE D GFR IS code = 1092) mL/min/1.73 sq NOT ACCURA TE m CREATININE CLEARANCE IN PREDICTING GLOMERULAR FILTRATION RATE . ESTIMATED GFR I S NOT APPLICABLE FOR DIALYSIS PATIEN TS. POCT-GLUCOSE [id number] 16:33:00 Test Item Value Reference Range Interpretation Comments POC-GLUCOSE METER 116 mg/dL 70-110 H TESTED AT [place] [address] ([facility]) (test code = [address] [place] 15[address]) [id number] POCT-GLUCOSE [id number] 11:08:00 Test Item Value Reference Range Interpretation Comments POC-GLUCOSE METER 133 mg/dL 70-110 H TESTED AT [place] [address] ([facility]) (test code = [facility] [place] 15[address]) [id number] POCT-GLUCOSE [id number] 06:11:00 Test Item Value Reference Range Interpretation Comments POC-GLUCOSE METER 105 mg/dL 70-110 TESTED AT [place] [address] ([facility]) (test code = [facility] [place] 15[address]) [id number] POCT-GLUCOSE [id number] 20:28:00 Test Item Value Reference Range Interpretation Comments POC-GLUCOSE METER 124 mg/dL 70-110 H TESTED AT [place] [address] ([facility]) (test code = [facility] [address] 15[address]) [id number] POCT-GLUCOSE [id number] 16:46:00 Test Item Value Reference Range Interpretation Comments POC-GLUCOSE METER 113 mg/dL 70-110 H TESTED AT [place] [address] ([facility]) (test code = [facility] [place] 15[address]) [id number] POCT-GLUCOSE [id number] 11:46:00 Test Item Value Reference Range Interpretation Comments POC-GLUCOSE METER 113 mg/dL 70-110 H TESTED AT [place] [address] ([facility]) (test code = [facility] [place] 1538) [id number] URINE [id number] 09:54:00 Test Item Value Reference Range Interpretation Comments CULTURE ([facility]) (test KLEBSIELLA A >100, 000 col/mL code = 1095) PNEUMONIAE Klebsiella pneumoniae Amikacin (test code = S 1) Ampicillin + Sulbactam S (test code = 6) Aztreonam (test code = S 32) Cefepime (test code = S 51) Cefoxitin (test code = S 68) Ceftazidime (test code S = 27) Ceftriaxone (test code S = 52) Ertapenem (test code = S 38) Gentamicin (test code = S 18) Levofloxacin (test code S = 22) Meropenem (test code = S 34) Nitrofurantoin (test R code = 23) Piperacillin + S Tazobactam (test code = 29) Tetracycline (test code S = 2) Tobramycin (test code = S 25) Trimethoprim + S Sulfamethoxazole (test code = 47) POCT-GLUCOSE [id number] 06:46:00 Test Item Value Reference Range Interpretation Comments POC-GLUCOSE METER 111 mg/dL 70-110 H TESTED AT [place] [address] ([facility]) (test code = [place] [address]) [id number] POCT-GLUCOSE [id number] 20:48:00 Test Item Value Reference Range Interpretation Comments POC-GLUCOSE METER 128 mg/dL 70-110 H TESTED AT [place] [address] ([facility]) (test code = [place] 1538) [id number] POCT-GLUCOSE [id number] 16:00:00 Test Item Value Reference Range Interpretation Comments POC-GLUCOSE METER 127 mg/dL 70-110 H TESTED AT [place] [address] ([facility]) (test code = [place] 1538) [id number] POCT-GLUCOSE [id number] 11:16:00 Test Item Value Reference Range Interpretation Comments POC-GLUCOSE METER 273 mg/dL 70-110 H TESTED AT [place] [address] ([facility]) (test code = [place] 1538) [id number] COMPREHENSIVE METABOLIC [id number] 06:44:00 Test Item Value Reference Range Interpretation Comments TOTAL PROTEIN 6.4 gm/dL 6.0-8.3 ([facility]) (test code = 770) ALBUMIN ([facility]) 2.9 g/dL 3.5-5.0 L (test code = 1145) ALKALINE PHOSPHATASE 109 U/L 40-150 ([facility]) (test code = 346) BILIRUBIN TOTAL < mg/dL 0.2-1.2 ([facility]) (test code = 377) SODIUM (BEAKER) (test 142 meq/L 136-145 code = 381) POTASSIUM (AKER) 4.1 meq/L 3.5-5.1 (test code = 379) CHLORIDE (BEAKER) 107 meq/L 98-107 (test code = 382) CO2 (BEAKER) (test 26 meq/L 22-29 code = 355) BLOOD UREA NITROGEN 7 mg/dL 7-21 (BEAKER) (test code = 354) CREATININE (BEAKER) 0.56 mg/dL 0.57-1.25 L (test code = 358) GLUCOSE RANDOM 103 mg/dL 70-105 (BEAKER) (test code = 652) CALCIUM (BEAKER) 8.7 mg/dL 8.4-10.2 (test code = 697) AST (SGOT) (BEAKER) 42 U/L 5-34 H (test code = 353) ALT (SGPT) (BEAKER) 32 U/L 6-55 (test code = 347) EGFR (BEAKER) (test 145 ESTIMATE D GFR IS code = 1092) mL/min/1.73 sq NOT ACCURA TE m CREATININE CLEARANCE IN PREDICTING GLOMERULAR FILTRATION RATE . ESTIMATED GFR I S NOT APPLICABLE FOR DIALYSIS PATIMADALYN AGRAWAL [id number] 06:27:00 Test Item Value Reference Range Interpretation Comments PARTIAL THROMBOPLASTIN TIME 38.5 seconds 22.5-36.0 H (BEAKER) (test code = 760) PROTHROMBIN [id number] 06:26:00 Test Item Value Reference Range Interpretation Comments PROTIME (BEAKER) (test code = 16.3 seconds 11.7-14.7 H 759) INR (BEAKER) (test code = 370) 1.3 <=5.9 RECOMMENDED COUMADIN/WARFARIN INR THERAPY RANGESSTANDARD DOSE: 2.0 - 3.0 Includes: PROPHYLAXIS forvenous thrombosis, systemic embolization; TREATMENT for venous thrombosis and/or pulmonary embolus.HIGH RISK: Target INR is 2.5-3.5 for patients with mechanical heart valves.CBC W/PLT COUNT & AUTO DIFFERENTIAL 2016-12-16 06:25:00 Test Item Value Reference Range Interpretation Comments WHITE BLOOD CELL COUNT (BEAKER) 7.1 K/ L 3.5-10.5 (test code = 775) RED BLOOD CELL COUNT (BEAKER) 2.90 M/ L 4.63-6.08 L (test code = 761) HEMOGLOBIN (BEAKER) (test code = 9.1 GM/DL 13.7-17.5 L 410) HEMATOCRIT (BEAKER) (test code = 28.9 % 40.1-51.0 L 411) MEAN CORPUSCULAR VOLUME (BEAKER) 99.7 fL 79.0-92.2 H (test code = 753) MEAN CORPUSCULAR HEMOGLOBIN 31.4 pg 25.7-32.2 (BEAKER) (test code = 751) MEAN CORPUSCULAR HEMOGLOBIN CONC 31.5 GM/DL 32.3-36.5 L (BEAKER) (test code = 752) RED CELL DISTRIBUTION WIDTH 16.4 % 11.6-14.4 H (BEAKER) (test code = 412) PLATELET COUNT (BEAKER) (test 402 K/CU MM 150-450 code = 756) MEAN PLATELET VOLUME (BEAKER) 9.2 fL 9.4-12.4 L (test code = 754) NUCLEATED RED BLOOD CELLS 0 /100 WBC 0-0 (BEAKER) (test code = 413) NEUTROPHILS RELATIVE PERCENT 61 % (BEAKER) (test code = 429) LYMPHOCYTES RELATIVE PERCENT 21 % (BEAKER) (test code = 430) MONOCYTES RELATIVE PERCENT 16 % (BEAKER) (test code = 431) EOSINOPHILS RELATIVE PERCENT 2 % (BEAKER) (test code = 432) BASOPHILS RELATIVE PERCENT 0 % (BEAKER) (test code = 437) NEUTROPHILS ABSOLUTE COUNT 4.30 K/ L 1.78-5.38 (BEAKER) (test code = 670) LYMPHOCYTES ABSOLUTE COUNT 1.49 K/ L 1.32-3.57 (BEAKER) (test code = 414) MONOCYTES ABSOLUTE COUNT (BEAKER) 1.10 K/ L 0.30-0.82 H (test code = 415) EOSINOPHILS ABSOLUTE COUNT 0.15 K/ L 0.04-0.54 (BEAKER) (test code = 416) BASOPHILS ABSOLUTE COUNT (BEAKER) 0.02 K/ L 0.01-0.08 (test code = 417) IMMATURE GRANULOCYTES-RELATIVE 0 % 0-1 PERCENT (BEAKER) (test code = 2801) POCT-GLUCOSE [id number] 06:22:00 Test Item Value Reference Range Interpretation Comments POC-GLUCOSE METER 131 mg/dL 70-110 H TESTED AT [facility] (BEAKER) (test code = [place] [address]38) [id number] URINALYSIS W/ [id number] 20:35:00 Test Item Value Reference Range Interpretation Comments COLOR (BEAKER) (test code Yellow = 470) CLARITY (BEAKER) (test Clear code = 469) SPECIFIC GRAVITY UA 1.006 1.001-1.035 (BEAKER) (test code = 468) PH UA (BEAKER) (test code 6.5 5.0-8.0 = 467) PROTEIN UA (BEAKER) (test Negative Negative code = 464) GLUCOSE UA (BEAKER) (test Negative Negative code = 365) KETONES UA (BEAKER) (test Negative Negative code = 371) BILIRUBIN UA (BEAKER) Negative Negative (test code = 462) BLOOD UA (BEAKER) (test Negative Negative code = 461) NITRITE UA (BEAKER) (test Negative Negative code = 465) LEUKOCYTE ESTERASE UA Negative Negative (BEAKER) (test code = 466) UROBILINOGEN UA (BEAKER) 0.2 mg/dL 0.2-1.0 (test code = 463) RBC UA (BEAKER) (test code 1 /HPF = 519) WBC UA (BEAKER) (test code 0 /HPF = 520) SOURCE(BEAKER) (test code Urine, Clean Catch = 2795) POCT-GLUCOSE [id number] 20:21:00 Test Item Value Reference Range Interpretation Comments POC-GLUCOSE METER 132 mg/dL 70-110 H TESTED AT [place] [address] (BEAKER) [facility] [id number] POCT-GLUCOSE [id number] 16:17:00 Test Item Value Reference Range Interpretation Comments POC-GLUCOSE METER 101 mg/dL 70-110 TESTED AT [place] [address] (BEAKER) (test code = [facility]) [id number] POCT-GLUCOSE [id number] 13:35:00 Test Item Value Reference Range Interpretation Comments POC-GLUCOSE METER 143 mg/dL 70-110 H TESTED AT [place] [address] (BEAKER) (test code = [facility]) [id number] BASIC METABOLIC [id number] 06:31:00 Test Item Value Reference Range Interpretation Comments SODIUM (BEAKER) 137 meq/L 136-145 (test code = 381) POTASSIUM (BEAKER) 4.2 meq/L 3.5-5.1 (test code = 379) CHLORIDE (BEAKER) 104 meq/L 98-107 (test code = 382) CO2 (BEAKER) (test 26 meq/L 22-29 code = 355) BLOOD UREA NITROGEN 4 mg/dL 7-21 L (BEAKER) (test code = 354) CREATININE (BEAKER) 0.57 mg/dL 0.57-1.25 (test code = 358) GLUCOSE RANDOM 97 mg/dL 70-105 (BEAKER) (test code = 652) CALCIUM (BEAKER) 8.8 mg/dL 8.4-10.2 (test code = 697) EGFR (BEAKER) (test 142 mL/min/1.73 ESTIM ATED GFR IS code = 1092) sq m NOT ACCURATE CREATININE CLEARANCE IN PREDICTING GLOMERULAR FILTRATION RATE . ESTIMATED GFR I S NOT APPLICABLE FOR DIALYSIS PATIEN TS. BASIC METABOLIC [id number] 05:41:00 Test Item Value Reference Range Interpretation Comments SODIUM (BEAKER) 141 meq/L 136-145 (test code = 381) POTASSIUM (BEAKER) 3.9 meq/L 3.5-5.1 (test code = 379) CHLORIDE (BEAKER) 107 meq/L 98-107 (test code = 382) CO2 (BEAKER) (test 24 meq/L 22-29 code = 355) BLOOD UREA NITROGEN 4 mg/dL 7-21 L (BEAKER) (test code = 354) CREATININE (BEAKER) 0.59 mg/dL 0.57-1.25 (test code = 358) GLUCOSE RANDOM 100 mg/dL 70-105 (BEAKER) (test code = 652) CALCIUM (BEAKER) 8.7 mg/dL 8.4-10.2 (test code = 697) EGFR (BEAKER) (test 137 mL/min/1.73 ESTIM ATED GFR IS code = 1092) sq m NOT ACCURATE CREATININE CLEARANCE IN PREDICTING GLOMERULAR FILTRATION RATE . ESTIMATED GFR I S NOT APPLICABLE FOR DIALYSIS PATIEN TS. CBC (HEMOGRAM ONLY)2016-12-13 05:18:00 Test Item Value Reference Range Interpretation Comments WHITE BLOOD CELL COUNT (BEAKER) 8.5 K/ L 3.5-10.5 (test code = 775) RED BLOOD CELL COUNT (BEAKER) 2.81 M/ L 4.63-6.08 L (test code = 761) HEMOGLOBIN (BEAKER) (test code = 9.0 GM/DL 13.7-17.5 L 410) HEMATOCRIT (BEAKER) (test code = 27.9 % 40.1-51.0 L 411) MEAN CORPUSCULAR VOLUME (BEAKER) 99.3 fL 79.0-92.2 H (test code = 753) MEAN CORPUSCULAR HEMOGLOBIN 32.0 pg 25.7-32.2 (BEAKER) (test code = 751) MEAN CORPUSCULAR HEMOGLOBIN CONC 32.3 GM/DL 32.3-36.5 (BEAKER) (test code = 752) RED CELL DISTRIBUTION WIDTH 17.0 % 11.6-14.4 H (BEAKER) (test code = 412) PLATELET COUNT (BEAKER) (test 473 K/CU MM 150-450 H code = 756) MEAN PLATELET VOLUME (BEAKER) 9.3 fL 9.4-12.4 L (test code = 754) NUCLEATED RED BLOOD CELLS 0 /100 WBC 0-0 (BEAKER) (test code = 413) VITAMIN [id number] 06:04:00 Test Item Value Reference Range Interpretation Comments VITAMIN B12 (BEAKER) (test code = 619 pg/mL 213-816 774) [id number] 06:04:00 Test Item Value Reference Range Interpretation Comments FERRITIN (BEAKER) (test code = 361) 335 ng/mL 5-275 H Effective 03/02/2014: Reference Range ChangeNew: Male 5-275 Previous: Male 22-322 Female 5-275 Female 10-291FOLATE, [id number] 06:04:00 Test Item Value Reference Range Interpretation Comments FOLATE (BEAKER) (test code = 362) 4.9 ng/mL >=7.0 L Effective 03/02/2014: Folate Reference Range ChangeNew: >=7.0 Previous: >=5.4BASIC METABOLIC [id number] 05:47:00 Test Item Value Reference Range Interpretation Comments SODIUM (BEAKER) 135 meq/L 136-145 L (test code = 381) POTASSIUM (BEAKER) 4.1 meq/L 3.5-5.1 (test code = 379) CHLORIDE (BEAKER) 103 meq/L 98-107 (test code = 382) CO2 (BEAKER) (test 24 meq/L 22-29 code = 355) BLOOD UREA NITROGEN 5 mg/dL 7-21 L (BEAKER) (test code = 354) CREATININE (BEAKER) 0.56 mg/dL 0.57-1.25 L (test code = 358) GLUCOSE RANDOM 98 mg/dL 70-105 (BEAKER) (test code = 652) CALCIUM (BEAKER) 8.5 mg/dL 8.4-10.2 (test code = 697) EGFR (BEAKER) (test 145 mL/min/1.73 ESTIM ATED GFR IS code = 1092) sq m NOT ACCURATE CREATININE CLEARANCE IN PREDICTING GLOMERULAR FILTRATION RATE . ESTIMATED GFR I S NOT APPLICABLE FOR DIALYSIS PATIEN TS. IRON, TIBC, % SAT. (WITHOUT FERRITIN)2016-12-12 05:29:00 Test Item Value Reference Range Interpretation Comments IRON (BEAKER) (test code = 547) 25 ug/dL 40-160 L TOTAL IRON BINDING CAPACITY 238 ug/dL 250-450 L (BEAKER) (test code = 769) IRON % SATURATION (2) (BEAKER) 11 % 20-55 L (test code = 2590) CBC (HEMOGRAM ONLY)2016-12-12 05:09:00 Test Item Value Reference Range Interpretation Comments WHITE BLOOD CELL COUNT (BEAKER) 8.6 K/ L 3.5-10.5 (test code = 775) RED BLOOD CELL COUNT (BEAKER) 2.74 M/ L 4.63-6.08 L (test code = 761) HEMOGLOBIN (BEAKER) (test code = 8.9 GM/DL 13.7-17.5 L 410) HEMATOCRIT (BEAKER) (test code = 27.3 % 40.1-51.0 L 411) MEAN CORPUSCULAR VOLUME (BEAKER) 99.6 fL 79.0-92.2 H (test code = 753) MEAN CORPUSCULAR HEMOGLOBIN 32.5 pg 25.7-32.2 H (BEAKER) (test code = 751) MEAN CORPUSCULAR HEMOGLOBIN CONC 32.6 GM/DL 32.3-36.5 (BEAKER) (test code = 752) RED CELL DISTRIBUTION WIDTH 17.2 % 11.6-14.4 H (BEAKER) (test code = 412) PLATELET COUNT (BEAKER) (test 400 K/CU MM 150-450 code = 756) MEAN PLATELET VOLUME (BEAKER) 9.2 fL 9.4-12.4 L (test code = 754) NUCLEATED RED BLOOD CELLS 0 /100 WBC 0-0 (BEAKER) (test code = 413) BASIC METABOLIC [id number] 05:53:00 Test Item Value Reference Range Interpretation Comments SODIUM (BEAKER) 138 meq/L 136-145 (test code = 381) POTASSIUM (BEAKER) 4.0 meq/L 3.5-5.1 Specimen slightly (test code = 379) hemolyzed CHLORIDE (BEAKER) 105 meq/L 98-107 (test code = 382) CO2 (BEAKER) (test 24 meq/L 22-29 code = 355) BLOOD UREA NITROGEN 4 mg/dL 7-21 L (BEAKER) (test code = 354) CREATININE (BEAKER) 0.56 mg/dL 0.57-1.25 L Specimen slightly (test code = 358) hemolyzed GLUCOSE RANDOM 97 mg/dL 70-105 (BEAKER) (test code = 652) CALCIUM (BEAKER) 8.4 mg/dL 8.4-10.2 (test code = 697) EGFR (BEAKER) (test 145 mL/min/1.73 ESTIM ATED GFR IS code = 1092) sq m NOT ACCURATE CREATININE CLEARANCE IN PREDICTING GLOMERULAR FILTRATION RATE . ESTIMATED GFR I S NOT APPLICABLE FOR DIALYSIS PATIEN TS. CREATINE KINASE (CK)2016-12-11 05:53:00 Test Item Value Reference Range Interpretation Comments CREATINE KINASE TOTAL (BEAKER) (test 29 U/L 29-200 code = 380) CBC (HEMOGRAM ONLY)2016-12-11 05:34:00 Test Item Value Reference Range Interpretation Comments WHITE BLOOD CELL COUNT (BEAKER) 8.0 K/ L 3.5-10.5 (test code = 775) RED BLOOD CELL COUNT (BEAKER) 2.70 M/ L 4.63-6.08 L (test code = 761) HEMOGLOBIN (BEAKER) (test code = 8.6 GM/DL 13.7-17.5 L 410) HEMATOCRIT (BEAKER) (test code = 27.0 % 40.1-51.0 L 411) MEAN CORPUSCULAR VOLUME (BEAKER) 100.0 fL 79.0-92.2 H (test code = 753) MEAN CORPUSCULAR HEMOGLOBIN 31.9 pg 25.7-32.2 (BEAKER) (test code = 751) MEAN CORPUSCULAR HEMOGLOBIN CONC 31.9 GM/DL 32.3-36.5 L (BEAKER) (test code = 752) RED CELL DISTRIBUTION WIDTH 17.2 % 11.6-14.4 H (BEAKER) (test code = 412) PLATELET COUNT (BEAKER) (test 406 K/CU MM 150-450 code = 756) MEAN PLATELET VOLUME (BEAKER) 9.4 fL 9.4-12.4 (test code = 754) NUCLEATED RED BLOOD CELLS 0 /100 WBC 0-0 (BEAKER) (test code = 413) [id number] 22:53:00 Test Item Value Reference Range Interpretation Comments ACTIVATED CLOTTING TIME 153 sec TEST ED AT [place] [address] ([facility]) (test code = TISHA HINES [place]) [id number] 22:35:00 Test Item Value Reference Range Interpretation Comments ACTIVATED CLOTTING TIME 202 sec TEST ED AT [place] [address] ([facility]) (test code = TISHA HINES [facility]) [id number] 22:04:00 Test Item Value Reference Range Interpretation Comments PARTIAL THROMBOPLASTIN TIME 45.2 seconds 22.5-36.0 H (BEAKER) (test code = 760) Prior to initiating heparinCBC (HEMOGRAM ONLY)2016-12-10 21:56:00 Test Item Value Reference Range Interpretation Comments WHITE BLOOD CELL COUNT (BEAKER) 9.5 K/ L 3.5-10.5 (test code = 775) RED BLOOD CELL COUNT (BEAKER) 2.79 M/ L 4.63-6.08 L (test code = 761) HEMOGLOBIN (BEAKER) (test code = 9.0 GM/DL 13.7-17.5 L 410) HEMATOCRIT (BEAKER) (test code = 27.6 % 40.1-51.0 L 411) MEAN CORPUSCULAR VOLUME (BEAKER) 98.9 fL 79.0-92.2 H (test code = 753) MEAN CORPUSCULAR HEMOGLOBIN 32.3 pg 25.7-32.2 H (BEAKER) (test code = 751) MEAN CORPUSCULAR HEMOGLOBIN CONC 32.6 GM/DL 32.3-36.5 (BEAKER) (test code = 752) RED CELL DISTRIBUTION WIDTH 17.3 % 11.6-14.4 H (BEAKER) (test code = 412) PLATELET COUNT (BEAKER) (test 429 K/CU MM 150-450 code = 756) MEAN PLATELET VOLUME (BEAKER) 9.8 fL 9.4-12.4 (test code = 754) NUCLEATED RED BLOOD CELLS 0 /100 WBC 0-0 (BEAKER) (test code = 413) BASIC METABOLIC [id number] 08:43:00 Test Item Value Reference Range Interpretation Comments SODIUM (BEAKER) 139 meq/L 136-145 (test code = 381) POTASSIUM (BEAKER) 4.0 meq/L 3.5-5.1 (test code = 379) CHLORIDE (BEAKER) 104 meq/L 98-107 (test code = 382) CO2 (BEAKER) (test 24 meq/L 22-29 code = 355) BLOOD UREA NITROGEN 4 mg/dL 7-21 L (BEAKER) (test code = 354) CREATININE (BEAKER) 0.58 mg/dL 0.57-1.25 (test code = 358) GLUCOSE RANDOM 95 mg/dL 70-105 (BEAKER) (test code = 652) CALCIUM (BEAKER) 8.7 mg/dL 8.4-10.2 (test code = 697) EGFR (BEAKER) (test 139 mL/min/1.73 ESTIM ATED GFR IS code = 1092) sq m NOT ACCURATE CREATININE CLEARANCE IN PREDICTING GLOMERULAR FILTRATION RATE . ESTIMATED GFR I S NOT APPLICABLE FOR DIALYSIS PATIEN TS. CBC (HEMOGRAM ONLY)2016-12-10 08:03:00 Test Item Value Reference Range Interpretation Comments WHITE BLOOD CELL COUNT (BEAKER) 8.7 K/ L 3.5-10.5 (test code = 775) RED BLOOD CELL COUNT (BEAKER) 2.80 M/ L 4.63-6.08 L (test code = 761) HEMOGLOBIN (BEAKER) (test code = 9.2 GM/DL 13.7-17.5 L 410) HEMATOCRIT (BEAKER) (test code = 27.7 % 40.1-51.0 L 411) MEAN CORPUSCULAR VOLUME (BEAKER) 98.9 fL 79.0-92.2 H (test code = 753) MEAN CORPUSCULAR HEMOGLOBIN 32.9 pg 25.7-32.2 H (BEAKER) (test code = 751) MEAN CORPUSCULAR HEMOGLOBIN CONC 33.2 GM/DL 32.3-36.5 (BEAKER) (test code = 752) RED CELL DISTRIBUTION WIDTH 17.2 % 11.6-14.4 H (BEAKER) (test code = 412) PLATELET COUNT (BEAKER) (test 509 K/CU MM 150-450 H code = 756) MEAN PLATELET VOLUME (BEAKER) 9.3 fL 9.4-12.4 L (test code = 754) NUCLEATED RED BLOOD CELLS 0 /100 WBC 0-0 (BEAKER) (test code = 413) BASIC METABOLIC [id number] 06:44:00 Test Item Value Reference Range Interpretation Comments SODIUM (BEAKER) 137 meq/L 136-145 (test code = 381) POTASSIUM (BEAKER) 4.6 meq/L 3.5-5.1 Specimen slightly (test code = 379) hemolyzed CHLORIDE (BEAKER) 106 meq/L 98-107 (test code = 382) CO2 (BEAKER) (test 18 meq/L 22-29 L code = 355) BLOOD UREA NITROGEN 5 mg/dL 7-21 L (BEAKER) (test code = 354) CREATININE (BEAKER) 0.60 mg/dL 0.57-1.25 Specimen slightly (test code = 358) hemolyzed GLUCOSE RANDOM 86 mg/dL 70-105 (BEAKER) (test code = 652) CALCIUM (BEAKER) 8.6 mg/dL 8.4-10.2 (test code = 697) EGFR (BEAKER) (test 134 mL/min/1.73 ESTIM ATED GFR IS code = 1092) sq m NOT ACCURATE CREATININE CLEARANCE IN PREDICTING GLOMERULAR FILTRATION RATE . ESTIMATED GFR I S NOT APPLICABLE FOR DIALYSIS PATIEN TS. CBC W/PLT COUNT & AUTO [id number] 21:33:00 Test Item Value Reference Range Interpretation Comments WHITE BLOOD CELL COUNT (BEAKER) 8.3 K/ L 3.5-10.5 (test code = 775) RED BLOOD CELL COUNT (BEAKER) 3.00 M/ L 4.63-6.08 L (test code = 761) HEMOGLOBIN (BEAKER) (test code = 9.6 GM/DL 13.7-17.5 L 410) HEMATOCRIT (BEAKER) (test code = 29.5 % 40.1-51.0 L 411) MEAN CORPUSCULAR VOLUME (BEAKER) 98.3 fL 79.0-92.2 H (test code = 753) MEAN CORPUSCULAR HEMOGLOBIN 32.0 pg 25.7-32.2 (BEAKER) (test code = 751) MEAN CORPUSCULAR HEMOGLOBIN CONC 32.5 GM/DL 32.3-36.5 (BEAKER) (test code = 752) RED CELL DISTRIBUTION WIDTH 17.3 % 11.6-14.4 H (BEAKER) (test code = 412) PLATELET COUNT (BEAKER) (test 434 K/CU MM 150-450 code = 756) MEAN PLATELET VOLUME (BEAKER) 9.4 fL 9.4-12.4 (test code = 754) NUCLEATED RED BLOOD CELLS 0 /100 WBC 0-0 (BEAKER) (test code = 413) NEUTROPHILS RELATIVE PERCENT 54 % (BEAKER) (test code = 429) LYMPHOCYTES RELATIVE PERCENT 27 % (BEAKER) (test code = 430) MONOCYTES RELATIVE PERCENT 17 % (BEAKER) (test code = 431) EOSINOPHILS RELATIVE PERCENT 2 % (BEAKER) (test code = 432) BASOPHILS RELATIVE PERCENT 0 % (BEAKER) (test code = 437) NEUTROPHILS ABSOLUTE COUNT 4.46 K/ L 1.78-5.38 (BEAKER) (test code = 670) LYMPHOCYTES ABSOLUTE COUNT 2.24 K/ L 1.32-3.57 (BEAKER) (test code = 414) MONOCYTES ABSOLUTE COUNT (BEAKER) 1.38 K/ L 0.30-0.82 H (test code = 415) EOSINOPHILS ABSOLUTE COUNT 0.17 K/ L 0.04-0.54 (BEAKER) (test code = 416) BASOPHILS ABSOLUTE COUNT (BEAKER) 0.02 K/ L 0.01-0.08 (test code = 417) IMMATURE GRANULOCYTES-RELATIVE 1 % 0-1 PERCENT (BEAKER) (test code = 2801) [id number] 07:21:00 Test Item Value Reference Range Interpretation Comments PHOSPHORUS (BEAKER) (test code = 3.6 mg/dL 2.3-4.7 604) [id number] 07:21:00 Test Item Value Reference Range Interpretation Comments MAGNESIUM (BEAKER) (test code = 1.9 mg/dL 1.6-2.6 627) COMPREHENSIVE METABOLIC [id number] 07:21:00 Test Item Value Reference Range Interpretation Comments TOTAL PROTEIN 6.2 gm/dL 6.0-8.3 (BEAKER) (test code = 770) ALBUMIN (BEAKER) 3.0 g/dL 3.5-5.0 L (test code = 1145) ALKALINE PHOSPHATASE 95 U/L 40-150 (BEAKER) (test code = 346) BILIRUBIN TOTAL 0.3 mg/dL 0.2-1.2 (BEAKER) (test code = 377) SODIUM (BEAKER) (test 137 meq/L 136-145 code = 381) POTASSIUM (BEAKER) 3.9 meq/L 3.5-5.1 (test code = 379) CHLORIDE (BEAKER) 105 meq/L 98-107 (test code = 382) CO2 (BEAKER) (test 23 meq/L 22-29 code = 355) BLOOD UREA NITROGEN 6 mg/dL 7-21 L (BEAKER) (test code = 354) CREATININE (BEAKER) 0.57 mg/dL 0.57-1.25 (test code = 358) GLUCOSE RANDOM 89 mg/dL 70-105 (BEAKER) (test code = 652) CALCIUM (BEAKER) 8.3 mg/dL 8.4-10.2 L (test code = 697) AST (SGOT) (BEAKER) 25 U/L 5-34 (test code = 353) ALT (SGPT) (BEAKER) 14 U/L 6-55 (test code = 347) EGFR (BEAKER) (test 142 ESTIMATE D GFR IS code = 1092) mL/min/1.73 sq NOT ACCURA TE m CREATININE CLEARANCE IN PREDICTING GLOMERULAR FILTRATION RATE . ESTIMATED GFR I S NOT APPLICABLE FOR DIALYSIS PATIEN TS. CBC (HEMOGRAM ONLY)2016-12-08 06:35:00 Test Item Value Reference Range Interpretation Comments WHITE BLOOD CELL COUNT (BEAKER) 7.9 K/ L 3.5-10.5 (test code = 775) RED BLOOD CELL COUNT (BEAKER) 2.92 M/ L 4.63-6.08 L (test code = 761) HEMOGLOBIN (BEAKER) (test code = 9.2 GM/DL 13.7-17.5 L 410) HEMATOCRIT (BEAKER) (test code = 28.4 % 40.1-51.0 L 411) MEAN CORPUSCULAR VOLUME (BEAKER) 97.3 fL 79.0-92.2 H (test code = 753) MEAN CORPUSCULAR HEMOGLOBIN 31.5 pg 25.7-32.2 (BEAKER) (test code = 751) MEAN CORPUSCULAR HEMOGLOBIN CONC 32.4 GM/DL 32.3-36.5 (BEAKER) (test code = 752) RED CELL DISTRIBUTION WIDTH 17.0 % 11.6-14.4 H (BEAKER) (test code = 412) PLATELET COUNT (BEAKER) (test 415 K/CU MM 150-450 code = 756) MEAN PLATELET VOLUME (BEAKER) 9.3 fL 9.4-12.4 L (test code = 754) NUCLEATED RED BLOOD CELLS 0 /100 WBC 0-0 (BEAKER) (test code = 413) CBC (HEMOGRAM ONLY)2016-12-07 06:08:00 Test Item Value Reference Range Interpretation Comments WHITE BLOOD CELL COUNT (BEAKER) 7.7 K/ L 3.5-10.5 (test code = 775) RED BLOOD CELL COUNT (BEAKER) 2.85 M/ L 4.63-6.08 L (test code = 761) HEMOGLOBIN (BEAKER) (test code = 9.0 GM/DL 13.7-17.5 L 410) HEMATOCRIT (BEAKER) (test code = 27.8 % 40.1-51.0 L 411) MEAN CORPUSCULAR VOLUME (BEAKER) 97.5 fL 79.0-92.2 H (test code = 753) MEAN CORPUSCULAR HEMOGLOBIN 31.6 pg 25.7-32.2 (BEAKER) (test code = 751) MEAN CORPUSCULAR HEMOGLOBIN CONC 32.4 GM/DL 32.3-36.5 (BEAKER) (test code = 752) RED CELL DISTRIBUTION WIDTH 16.5 % 11.6-14.4 H (BEAKER) (test code = 412) PLATELET COUNT (BEAKER) (test 399 K/CU MM 150-450 code = 756) MEAN PLATELET VOLUME (BEAKER) 9.5 fL 9.4-12.4 (test code = 754) NUCLEATED RED BLOOD CELLS 0 /100 WBC 0-0 (BEAKER) (test code = 413) PHENYTOIN LEVEL, TOTAL AND [id number] 01:14:00 Test Item Value Reference Range Interpretation Comments PHENYTOIN (DILANTIN) (BEAKER) 22.9 ug/mL 10.0-20.0 H (test code = 605) PHENYTOIN FREE (BEAKER) (test 3.51 mcg/ml 1.00-2.00 H code = 847) VALPROIC ACID LEVEL, [id number] 20:49:00 Test Item Value Reference Range Interpretation Comments VALPROIC ACID TOTAL (BEAKER) (test 33 ug/mL 50-100 L code = 924) Therapeutic range for some clinical conditions may be >100 ug/mLPOCT-GLUCOSE [id number] 17:10:00 Test Item Value Reference Range Interpretation Comments POC-GLUCOSE METER 108 mg/dL 70-110 TESTED AT [facility] 6720 (BEAKER) (test code = TISHA HINES [place] 1538) [id number] PHENYTOIN LEVEL, [id number] 12:29:00 Test Item Value Reference Range Interpretation Comments PHENYTOIN (DILANTIN) (BEAKER) 16.3 ug/mL 10.0-20.0 (test code = 605) CREATINE KINASE (CK), TOTAL AND [id number] 12:26:00 Test Item Value Reference Range Interpretation Comments CREATINE KINASE TOTAL (BEAKER) 47 U/L 29-200 (test code = 380) CREATINE KINASE-MB (BEAKER) (test 1.1 ng/mL 0.0-6.6 code = 750) CREATINE KINASE-MB INDEX (BEAKER) 2.3 % (test code = 395) Effective 03/02/2014: CK-MB Reference Range ChangeNew: 0.0-6.6 Previous: 0.0-4.9CK-MB Reference Range:<6.7 Normal6.7-10.0 Borderline>10.0 AbnormalTROPONIN [id number] 12:26:00 Test Item Value Reference Range Interpretation Comments TROPONIN I (BEAKER) (test code = 0.11 ng/mL 0.00-0.03 H 397) Effective 03/02/2014: Reference Range ChangeNew: 0.00-0.03 Previous [...] renalfailure, acidosis, acute neurological disease, and persistent tachyarrhythmia.[id number] 12:17:00 Test Item Value Reference Range Interpretation Comments MAGNESIUM (BEAKER) (test code = 2.0 mg/dL 1.6-2.6 627) COMPREHENSIVE METABOLIC [id number] 12:17:00 Test Item Value Reference Range Interpretation Comments TOTAL PROTEIN 6.2 gm/dL 6.0-8.3 (BEAKER) (test code = 770) ALBUMIN (BEAKER) 3.0 g/dL 3.5-5.0 L (test code = 1145) ALKALINE PHOSPHATASE 101 U/L 40-150 (BEAKER) (test code = 346) BILIRUBIN TOTAL 0.3 mg/dL 0.2-1.2 (BEAKER) (test code = 377) SODIUM (BEAKER) (test 140 meq/L 136-145 code = 381) POTASSIUM (BEAKER) 4.6 meq/L 3.5-5.1 (test code = 379) CHLORIDE (BEAKER) 107 meq/L 98-107 (test code = 382) CO2 (BEAKER) (test 24 meq/L 22-29 code = 355) BLOOD UREA NITROGEN 5 mg/dL 7-21 L (BEAKER) (test code = 354) CREATININE (BEAKER) 0.62 mg/dL 0.57-1.25 (test code = 358) GLUCOSE RANDOM 111 mg/dL 70-105 H (BEAKER) (test code = 652) CALCIUM (BEAKER) 8.6 mg/dL 8.4-10.2 (test code = 697) AST (SGOT) (BEAKER) 23 U/L 5-34 (test code = 353) ALT (SGPT) (BEAKER) 15 U/L 6-55 (test code = 347) EGFR (BEAKER) (test 129 ESTIMATE D GFR IS code = 1092) mL/min/1.73 sq NOT ACCURA TE m CREATININE CLEARANCE IN PREDICTING GLOMERULAR FILTRATION RATE . ESTIMATED GFR I S NOT APPLICABLE FOR DIALYSIS PATIEN TS. CBC W/PLT COUNT & AUTO [id number] 11:55:00 Test Item Value Reference Range Interpretation Comments WHITE BLOOD CELL COUNT (BEAKER) 7.5 K/ L 3.5-10.5 (test code = 775) RED BLOOD CELL COUNT (BEAKER) 3.01 M/ L 4.63-6.08 L (test code = 761) HEMOGLOBIN (BEAKER) (test code = 9.5 GM/DL 13.7-17.5 L 410) HEMATOCRIT (BEAKER) (test code = 29.3 % 40.1-51.0 L 411) MEAN CORPUSCULAR VOLUME (BEAKER) 97.3 fL 79.0-92.2 H (test code = 753) MEAN CORPUSCULAR HEMOGLOBIN 31.6 pg 25.7-32.2 (BEAKER) (test code = 751) MEAN CORPUSCULAR HEMOGLOBIN CONC 32.4 GM/DL 32.3-36.5 (BEAKER) (test code = 752) RED CELL DISTRIBUTION WIDTH 16.4 % 11.6-14.4 H (BEAKER) (test code = 412) PLATELET COUNT (BEAKER) (test 396 K/CU MM 150-450 code = 756) MEAN PLATELET VOLUME (BEAKER) 9.6 fL 9.4-12.4 (test code = 754) NUCLEATED RED BLOOD CELLS 0 /100 WBC 0-0 (BEAKER) (test code = 413) NEUTROPHILS RELATIVE PERCENT 65 % (BEAKER) (test code = 429) LYMPHOCYTES RELATIVE PERCENT 19 % (BEAKER) (test code = 430) MONOCYTES RELATIVE PERCENT 13 % (BEAKER) (test code = 431) EOSINOPHILS RELATIVE PERCENT 2 % (BEAKER) (test code = 432) BASOPHILS RELATIVE PERCENT 0 % (BEAKER) (test code = 437) NEUTROPHILS ABSOLUTE COUNT 4.91 K/ L 1.78-5.38 (BEAKER) (test code = 670) LYMPHOCYTES ABSOLUTE COUNT 1.43 K/ L 1.32-3.57 (BEAKER) (test code = 414) MONOCYTES ABSOLUTE COUNT (BEAKER) 0.96 K/ L 0.30-0.82 H (test code = 415) EOSINOPHILS ABSOLUTE COUNT 0.11 K/ L 0.04-0.54 (BEAKER) (test code = 416) BASOPHILS ABSOLUTE COUNT (BEAKER) 0.02 K/ L 0.01-0.08 (test code = 417) IMMATURE GRANULOCYTES-RELATIVE 1 % 0-1 PERCENT (BEAKER) (test code = 2801) URINE [id number] 11:55:00 Test Item Value Reference Range Interpretation Comments CULTURE (BEAKER) (test code = 1095) No growth BLOOD GAS, [id number] 10:28:00 Test Item Value Reference Range Interpretation Comments PH ARTERIAL (BEAKER) (test code = 7.51 7.35-7.45 H 383) PCO2 ARTERIAL (BEAKER) (test code 32 mmHg 35-45 L = 384) PO2 ARTERIAL (BEAKER) (test code = 118 mmHg 80-90 H 385) O2 SATURATION ARTERIAL (BEAKER) 98.7 % 96.0-97.0 H (test code = 386) HCO3 ARTERIAL (BEAKER) (test code 25 mmol/L 21-29 = 388) BASE EXCESS ARTERIAL (BEAKER) 2.1 mmol/L -2.0-3.0 (test code = 387) PATIENT TEMPERATURE (BEAKER) (test 36.6 C code = 1818) FIO2 (BEAKER) (test code = 1819) 32.0 % POCT-GLUCOSE [id number] 09:53:00 Test Item Value Reference Range Interpretation Comments POC-GLUCOSE METER 184 mg/dL 70-110 H TESTED AT [facility] 6720 (BEAKER) (test code = TISHA HINES [place] 1538) [id number] TROPONIN [id number] 22:44:00 Test Item Value Reference Range Interpretation Comments TROPONIN I (BEAKER) (test code = 0.14 ng/mL 0.00-0.03 H 397) Effective 03/02/2014: Reference Range ChangeNew: 0.00-0.03 Previous [...] acidosis, acute neurological disease, and persistent tachyarrhythmia.TROPONIN [id number] 15:17:00 Test Item Value Reference Range Interpretation Comments TROPONIN I (BEAKER) (test code = 0.14 ng/mL 0.00-0.03 H 397) Effective 03/02/2014: Reference Range ChangeNew: 0.00-0.03 Previous [...] and persistent tachyarrhythmia.CBC W/PLT COUNT & AUTO DIFFERENTIAL 2016-12-05 14:44:00 Test Item Value Reference Range Interpretation Comments WHITE BLOOD CELL COUNT (BEAKER) 7.7 K/ L 3.5-10.5 (test code = 775) RED BLOOD CELL COUNT (BEAKER) 2.98 M/ L 4.63-6.08 L (test code = 761) HEMOGLOBIN (BEAKER) (test code = 9.3 GM/DL 13.7-17.5 L 410) HEMATOCRIT (BEAKER) (test code = 28.7 % 40.1-51.0 L 411) MEAN CORPUSCULAR VOLUME (BEAKER) 96.3 fL 79.0-92.2 H (test code = 753) MEAN CORPUSCULAR HEMOGLOBIN 31.2 pg 25.7-32.2 (BEAKER) (test code = 751) MEAN CORPUSCULAR HEMOGLOBIN CONC 32.4 GM/DL 32.3-36.5 (BEAKER) (test code = 752) RED CELL DISTRIBUTION WIDTH 15.7 % 11.6-14.4 H (BEAKER) (test code = 412) PLATELET COUNT (BEAKER) (test 356 K/CU MM 150-450 code = 756) MEAN PLATELET VOLUME (BEAKER) 10.1 fL 9.4-12.4 (test code = 754) NUCLEATED RED BLOOD CELLS 1 /100 WBC 0-0 H (BEAKER) (test code = 413) NEUTROPHILS RELATIVE PERCENT 58 % (BEAKER) (test code = 429) LYMPHOCYTES RELATIVE PERCENT 24 % (BEAKER) (test code = 430) MONOCYTES RELATIVE PERCENT 16 % (BEAKER) (test code = 431) EOSINOPHILS RELATIVE PERCENT 1 % (BEAKER) (test code = 432) BASOPHILS RELATIVE PERCENT 0 % (BEAKER) (test code = 437) NEUTROPHILS ABSOLUTE COUNT 4.43 K/ L 1.78-5.38 (BEAKER) (test code = 670) LYMPHOCYTES ABSOLUTE COUNT 1.85 K/ L 1.32-3.57 (BEAKER) (test code = 414) MONOCYTES ABSOLUTE COUNT (BEAKER) 1.22 K/ L 0.30-0.82 H (test code = 415) EOSINOPHILS ABSOLUTE COUNT 0.11 K/ L 0.04-0.54 (BEAKER) (test code = 416) BASOPHILS ABSOLUTE COUNT (BEAKER) 0.02 K/ L 0.01-0.08 (test code = 417) IMMATURE GRANULOCYTES-RELATIVE 1 % 0-1 PERCENT (BEAKER) (test code = 2801) (MANUAL DIFFERENTIAL)2016-12-05 14:44:00 Test Item Value Reference Range Interpretation Comments TOTAL COUNTED (BEAKER) (test code = 1351) WBC MORPHOLOGY (BEAKER) (test code = Normal 487) PLT MORPHOLOGY (BEAKER) (test code = Normal 486) RBC MORPHOLOGY (BEAKER) (test code = Normal 762) [id number] 07:06:00 Test Item Value Reference Range Interpretation Comments PHOSPHORUS (BEAKER) (test code = 2.5 mg/dL 2.3-4.7 604) [id number] 07:06:00 Test Item Value Reference Range Interpretation Comments MAGNESIUM (BEAKER) (test code = 2.0 mg/dL 1.6-2.6 627) COMPREHENSIVE METABOLIC [id number] 07:06:00 Test Item Value Reference Range Interpretation Comments TOTAL PROTEIN 6.3 gm/dL 6.0-8.3 (BEAKER) (test code = 770) ALBUMIN (BEAKER) 3.1 g/dL 3.5-5.0 L (test code = 1145) ALKALINE PHOSPHATASE 108 U/L 40-150 (BEAKER) (test code = 346) BILIRUBIN TOTAL 0.3 mg/dL 0.2-1.2 (BEAKER) (test code = 377) SODIUM (BEAKER) (test 139 meq/L 136-145 code = 381) POTASSIUM (BEAKER) 4.7 meq/L 3.5-5.1 (test code = 379) CHLORIDE (BEAKER) 107 meq/L 98-107 (test code = 382) CO2 (BEAKER) (test 25 meq/L 22-29 code = 355) BLOOD UREA NITROGEN 6 mg/dL 7-21 L (BEAKER) (test code = 354) CREATININE (BEAKER) 0.57 mg/dL 0.57-1.25 (test code = 358) GLUCOSE RANDOM 98 mg/dL 70-105 (BEAKER) (test code = 652) CALCIUM (BEAKER) 8.8 mg/dL 8.4-10.2 (test code = 697) AST (SGOT) (BEAKER) 25 U/L 5-34 (test code = 353) ALT (SGPT) (BEAKER) 19 U/L 6-55 (test code = 347) EGFR (BEAKER) (test 142 ESTIMATE D GFR IS code = 1092) mL/min/1.73 sq NOT ACCURA TE m CREATININE CLEARANCE IN PREDICTING GLOMERULAR FILTRATION RATE . ESTIMATED GFR I S NOT APPLICABLE FOR DIALYSIS PATIEN TS. PROTHROMBIN [id number] 06:40:00 Test Item Value Reference Range Interpretation Comments PROTIME (BEAKER) (test code = 12.5 seconds 11.7-14.7 759) INR (BEAKER) (test code = 370) 1.0 <=5.9 RECOMMENDED COUMADIN/WARFARIN INR THERAPY RANGESSTANDARD DOSE: 2.0 - 3.0 Includes: PROPHYLAXIS forvenous thrombosis, systemic embolization; TREATMENT for venous thrombosis and/or pulmonary embolus.HIGH RISK: Target INR is 2.5-3.5 for patients with mechanical heart valves.URINALYSIS W/ [id number] 06:18:00 Test Item Value Reference Range Interpretation Comments COLOR (BEAKER) (test code = Yellow 470) CLARITY (BEAKER) (test code = Clear 469) SPECIFIC GRAVITY UA (BEAKER) 1.010 1.001-1.035 (test code = 468) PH UA (BEAKER) (test code = 8.0 5.0-8.0 467) PROTEIN UA (BEAKER) (test code Negative Negative = 464) GLUCOSE UA (BEAKER) (test code Negative Negative = 365) KETONES UA (BEAKER) (test code 10 mg/dL Negative A = 371) BILIRUBIN UA (BEAKER) (test Negative Negative code = 462) BLOOD UA (BEAKER) (test code = Negative Negative 461) NITRITE UA (BEAKER) (test code Negative Negative = 465) LEUKOCYTE ESTERASE UA (BEAKER) Negative Negative (test code = 466) UROBILINOGEN UA (BEAKER) (test 3.0 mg/dL 0.2-1.0 H code = 463) RBC UA (BEAKER) (test code = 0 /HPF 519) WBC UA (BEAKER) (test code = < /HPF 520) SQUAMOUS EPITHELIAL (BEAKER) < /HPF (test code = 516) SOURCE(BEAKER) (test code = Urine, Voided 0935) COMPREHENSIVE METABOLIC [id number] 05:47:00 Test Item Value Reference Range Interpretation Comments TOTAL PROTEIN 5.5 gm/dL 6.0-8.3 L (BEAKER) (test code = 770) ALBUMIN (BEAKER) 2.7 g/dL 3.5-5.0 L (test code = 1145) ALKALINE PHOSPHATASE 97 U/L 40-150 (BEAKER) (test code = 346) BILIRUBIN TOTAL 0.3 mg/dL 0.2-1.2 (BEAKER) (test code = 377) SODIUM (BEAKER) (test 140 meq/L 136-145 code = 381) POTASSIUM (BEAKER) 3.4 meq/L 3.5-5.1 L (test code = 379) CHLORIDE (BEAKER) 105 meq/L 98-107 (test code = 382) CO2 (BEAKER) (test 26 meq/L 22-29 code = 355) BLOOD UREA NITROGEN 7 mg/dL 7-21 (BEAKER) (test code = 354) CREATININE (BEAKER) 0.50 mg/dL 0.57-1.25 L (test code = 358) GLUCOSE RANDOM 96 mg/dL 70-105 (BEAKER) (test code = 652) CALCIUM (BEAKER) 8.1 mg/dL 8.4-10.2 L (test code = 697) AST (SGOT) (BEAKER) 27 U/L 5-34 (test code = 353) ALT (SGPT) (BEAKER) 19 U/L 6-55 (test code = 347) EGFR (BEAKER) (test 165 ESTIMATE D GFR IS code = 1092) mL/min/1.73 sq NOT ACCURA TE m CREATININE CLEARANCE IN PREDICTING GLOMERULAR FILTRATION RATE . ESTIMATED GFR I S NOT APPLICABLE FOR DIALYSIS PATIEN TS. CBC (HEMOGRAM ONLY)2016-12-04 05:45:00 Test Item Value Reference Range Interpretation Comments WHITE BLOOD CELL COUNT (BEAKER) 6.9 K/ L 3.5-10.5 (test code = 775) RED BLOOD CELL COUNT (BEAKER) 2.72 M/ L 4.63-6.08 L (test code = 761) HEMOGLOBIN (BEAKER) (test code = 8.6 GM/DL 13.7-17.5 L 410) HEMATOCRIT (BEAKER) (test code = 25.5 % 40.1-51.0 L 411) MEAN CORPUSCULAR VOLUME (BEAKER) 93.8 fL 79.0-92.2 H (test code = 753) MEAN CORPUSCULAR HEMOGLOBIN 31.6 pg 25.7-32.2 (BEAKER) (test code = 751) MEAN CORPUSCULAR HEMOGLOBIN CONC 33.7 GM/DL 32.3-36.5 (BEAKER) (test code = 752) RED CELL DISTRIBUTION WIDTH 15.0 % 11.6-14.4 H (BEAKER) (test code = 412) PLATELET COUNT (BEAKER) (test 272 K/CU MM 150-450 code = 756) MEAN PLATELET VOLUME (BEAKER) 10.4 fL 9.4-12.4 (test code = 754) NUCLEATED RED BLOOD CELLS 0 /100 WBC 0-0 (BEAKER) (test code = 413) COMPREHENSIVE METABOLIC [id number] 10:08:00 Test Item Value Reference Range Interpretation Comments TOTAL PROTEIN 5.8 gm/dL 6.0-8.3 L (BEAKER) (test code = 770) ALBUMIN (BEAKER) 2.8 g/dL 3.5-5.0 L (test code = 1145) ALKALINE PHOSPHATASE 94 U/L 40-150 (BEAKER) (test code = 346) BILIRUBIN TOTAL 0.3 mg/dL 0.2-1.2 (BEAKER) (test code = 377) SODIUM (BEAKER) (test 138 meq/L 136-145 code = 381) POTASSIUM (BEAKER) 3.6 meq/L 3.5-5.1 (test code = 379) CHLORIDE (BEAKER) 103 meq/L 98-107 (test code = 382) CO2 (BEAKER) (test 26 meq/L 22-29 code = 355) BLOOD UREA NITROGEN 14 mg/dL 7-21 (BEAKER) (test code = 354) CREATININE (BEAKER) 0.54 mg/dL 0.57-1.25 L (test code = 358) GLUCOSE RANDOM 86 mg/dL 70-105 (BEAKER) (test code = 652) CALCIUM (BEAKER) 8.2 mg/dL 8.4-10.2 L (test code = 697) AST (SGOT) (BEAKER) 35 U/L 5-34 H (test code = 353) ALT (SGPT) (BEAKER) 24 U/L 6-55 (test code = 347) EGFR (BEAKER) (test 151 ESTIMATE D GFR IS code = 1092) mL/min/1.73 sq NOT ACCURA TE m CREATININE CLEARANCE IN PREDICTING GLOMERULAR FILTRATION RATE . ESTIMATED GFR I S NOT APPLICABLE FOR DIALYSIS PATIEN TS. CBC (HEMOGRAM ONLY)2016-12-03 09:38:00 Test Item Value Reference Range Interpretation Comments WHITE BLOOD CELL COUNT (BEAKER) 6.5 K/ L 3.5-10.5 (test code = 775) RED BLOOD CELL COUNT (BEAKER) 2.54 M/ L 4.63-6.08 L (test code = 761) HEMOGLOBIN (BEAKER) (test code = 8.1 GM/DL 13.7-17.5 L 410) HEMATOCRIT (BEAKER) (test code = 24.4 % 40.1-51.0 L 411) MEAN CORPUSCULAR VOLUME (BEAKER) 96.1 fL 79.0-92.2 H (test code = 753) MEAN CORPUSCULAR HEMOGLOBIN 31.9 pg 25.7-32.2 (BEAKER) (test code = 751) MEAN CORPUSCULAR HEMOGLOBIN CONC 33.2 GM/DL 32.3-36.5 (BEAKER) (test code = 752) RED CELL DISTRIBUTION WIDTH 15.1 % 11.6-14.4 H (BEAKER) (test code = 412) PLATELET COUNT (BEAKER) (test 233 K/CU MM 150-450 code = 756) MEAN PLATELET VOLUME (BEAKER) 10.8 fL 9.4-12.4 (test code = 754) NUCLEATED RED BLOOD CELLS 0 /100 WBC 0-0 (BEAKER) (test code = 413) POCT-GLUCOSE [id number] 12:08:00 Test Item Value Reference Range Interpretation Comments POC-GLUCOSE METER 111 mg/dL 70-110 H TESTED AT [place] [address] ([facility]) (test code = TISHA Cazares [facility] 1538) [address] POCT-GLUCOSE [id number] 08:40:00 Test Item Value Reference Range Interpretation Comments POC-GLUCOSE METER 184 mg/dL 70-110 H TESTED AT [place] [address] ([facility]) (test code = TISHA Cazares [facility] 1538) [address] [id number] 05:57:00 Test Item Value Reference Range Interpretation Comments MAGNESIUM (BEAKER) (test code = 2.1 mg/dL 1.6-2.6 627) BASIC METABOLIC [id number] 05:57:00 Test Item Value Reference Range Interpretation Comments SODIUM (BEAKER) 139 meq/L 136-145 (test code = 381) POTASSIUM (BEAKER) 3.4 meq/L 3.5-5.1 L (test code = 379) CHLORIDE (BEAKER) 102 meq/L 98-107 (test code = 382) CO2 (BEAKER) (test 26 meq/L 22-29 code = 355) BLOOD UREA NITROGEN 15 mg/dL 7-21 (BEAKER) (test code = 354) CREATININE (BEAKER) 0.62 mg/dL 0.57-1.25 (test code = 358) GLUCOSE RANDOM 104 mg/dL 70-105 (BEAKER) (test code = 652) CALCIUM (BEAKER) 8.8 mg/dL 8.4-10.2 (test code = 697) EGFR (BEAKER) (test 129 mL/min/1.73 ESTIM ATED GFR IS code = 1092) sq m NOT ACCURATE CREATININE CLEARANCE IN PREDICTING GLOMERULAR FILTRATION RATE . ESTIMATED GFR I S NOT APPLICABLE FOR DIALYSIS PATIEN TS. CBC (HEMOGRAM ONLY)2016-12-02 05:25:00 Test Item Value Reference Range Interpretation Comments WHITE BLOOD CELL COUNT (BEAKER) 8.2 K/ L 3.5-10.5 (test code = 775) RED BLOOD CELL COUNT (BEAKER) 2.68 M/ L 4.63-6.08 L (test code = 761) HEMOGLOBIN (BEAKER) (test code = 8.6 GM/DL 13.7-17.5 L 410) HEMATOCRIT (BEAKER) (test code = 24.7 % 40.1-51.0 L 411) MEAN CORPUSCULAR VOLUME (BEAKER) 92.2 fL 79.0-92.2 (test code = 753) MEAN CORPUSCULAR HEMOGLOBIN 32.1 pg 25.7-32.2 (BEAKER) (test code = 751) MEAN CORPUSCULAR HEMOGLOBIN CONC 34.8 GM/DL 32.3-36.5 (BEAKER) (test code = 752) RED CELL DISTRIBUTION WIDTH 15.0 % 11.6-14.4 H (BEAKER) (test code = 412) PLATELET COUNT (BEAKER) (test 226 K/CU MM 150-450 code = 756) MEAN PLATELET VOLUME (BEAKER) 10.7 fL 9.4-12.4 (test code = 754) NUCLEATED RED BLOOD CELLS 0 /100 WBC 0-0 (BEAKER) (test code = 413) POCT-GLUCOSE [id number] 21:18:00 Test Item Value Reference Range Interpretation Comments POC-GLUCOSE METER 118 mg/dL 70-110 H TESTED AT [facility] [address] ([facility]) (test code = TISHA [place] 1538) [address] POCT-GLUCOSE [id number] 17:33:00 Test Item Value Reference Range Interpretation Comments POC-GLUCOSE METER 102 mg/dL 70-110 TESTED AT [facility] 6720 ([facility]) (test code = TISHA [place] 1538) [address] POCT-GLUCOSE [id number] 12:06:00 Test Item Value Reference Range Interpretation Comments POC-GLUCOSE METER 188 mg/dL 70-110 H TESTED AT [facility] 6720 (BEAKER) (test code = TISHA Cazares [place] 1538) [address] POCT-GLUCOSE [id number] 08:31:00 Test Item Value Reference Range Interpretation Comments POC-GLUCOSE METER 109 mg/dL 70-110 TESTED AT [facility] 67[address] (BEAKER) (test code = TISHA Cazares [place] 1538) [address] [id number] 06:07:00 Test Item Value Reference Range Interpretation Comments MAGNESIUM (BEAKER) (test code = 2.0 mg/dL 1.6-2.6 627) BASIC METABOLIC [id number] 06:07:00 Test Item Value Reference Range Interpretation Comments SODIUM (BEAKER) 139 meq/L 136-145 (test code = 381) POTASSIUM (BEAKER) 3.6 meq/L 3.5-5.1 (test code = 379) CHLORIDE (BEAKER) 104 meq/L 98-107 (test code = 382) CO2 (BEAKER) (test 27 meq/L 22-29 code = 355) BLOOD UREA NITROGEN 15 mg/dL 7-21 (BEAKER) (test code = 354) CREATININE (BEAKER) 0.60 mg/dL 0.57-1.25 (test code = 358) GLUCOSE RANDOM 104 mg/dL 70-105 (BEAKER) (test code = 652) CALCIUM (BEAKER) 9.0 mg/dL 8.4-10.2 (test code = 697) EGFR (BEAKER) (test 134 mL/min/1.73 ESTIM ATED GFR IS code = 1092) sq m NOT ACCURATE CREATININE CLEARANCE IN PREDICTING GLOMERULAR FILTRATION RATE . ESTIMATED GFR I S NOT APPLICABLE FOR DIALYSIS PATIEN TS. [id number] 05:40:00 Test Item Value Reference Range Interpretation Comments PROTIME (BEAKER) (test code = 14.1 seconds 11.7-14.7 759) INR (BEAKER) (test code = 370) 1.1 <=5.9 PARTIAL THROMBOPLASTIN TIME 46.2 seconds 22.5-36.0 H (BEAKER) (test code = 760) RECOMMENDED COUMADIN/WARFARIN INR THERAPY RANGESSTANDARD DOSE: 2.0 - 3.0 Includes: PROPHYLAXIS forvenous thrombosis, systemic embolization; TREATMENT for venous thrombosis and/or pulmonary embolus.HIGH RISK: Target INR is 2.5-3.5 for patients with mechanical heart valves.CBC (HEMOGRAM ONLY)2016-12-01 05:18:00 Test Item Value Reference Range Interpretation Comments WHITE BLOOD CELL COUNT (BEAKER) 9.1 K/ L 3.5-10.5 (test code = 775) RED BLOOD CELL COUNT (BEAKER) 2.69 M/ L 4.63-6.08 L (test code = 761) HEMOGLOBIN (BEAKER) (test code = 8.5 GM/DL 13.7-17.5 L 410) HEMATOCRIT (BEAKER) (test code = 25.6 % 40.1-51.0 L 411) MEAN CORPUSCULAR VOLUME (BEAKER) 95.2 fL 79.0-92.2 H (test code = 753) MEAN CORPUSCULAR HEMOGLOBIN 31.6 pg 25.7-32.2 (BEAKER) (test code = 751) MEAN CORPUSCULAR HEMOGLOBIN CONC 33.2 GM/DL 32.3-36.5 (BEAKER) (test code = 752) RED CELL DISTRIBUTION WIDTH 15.0 % 11.6-14.4 H (BEAKER) (test code = 412) PLATELET COUNT (BEAKER) (test 190 K/CU MM 150-450 code = 756) MEAN PLATELET VOLUME (BEAKER) 10.7 fL 9.4-12.4 (test code = 754) NUCLEATED RED BLOOD CELLS 0 /100 WBC 0-0 (BEAKER) (test code = 413) POCT-GLUCOSE [id number] 21:01:00 Test Item Value Reference Range Interpretation Comments POC-GLUCOSE METER 118 mg/dL 70-110 H TESTED AT [place] [address] ([facility]) (test code = ANTHONYERIK Cazares [place] 1538) [address] POCT-GLUCOSE [id number] 18:51:00 Test Item Value Reference Range Interpretation Comments POC-GLUCOSE METER 117 mg/dL 70-110 H TESTED AT [place] [address] ([facility]) (test code = ANTHONYERIK Cazares [place] 1538) [address] POCT-GLUCOSE [id number] 14:02:00 Test Item Value Reference Range Interpretation Comments POC-GLUCOSE METER 129 mg/dL 70-110 H TESTED AT [facility] 6720 (BEAKER) (test code = TIS[place] 1538) [address] [id number] 04:19:00 Test Item Value Reference Range Interpretation Comments MAGNESIUM (BEAKER) (test code = 1.8 mg/dL 1.6-2.6 627) BASIC METABOLIC [id number] 04:19:00 Test Item Value Reference Range Interpretation Comments SODIUM (BEAKER) 138 meq/L 136-145 (test code = 381) POTASSIUM (BEAKER) 4.0 meq/L 3.5-5.1 (test code = 379) CHLORIDE (BEAKER) 107 meq/L 98-107 (test code = 382) CO2 (BEAKER) (test 23 meq/L 22-29 code = 355) BLOOD UREA NITROGEN 8 mg/dL 7-21 (BEAKER) (test code = 354) CREATININE (BEAKER) 0.55 mg/dL 0.57-1.25 L (test code = 358) GLUCOSE RANDOM 119 mg/dL 70-105 H (BEAKER) (test code = 652) CALCIUM (BEAKER) 8.8 mg/dL 8.4-10.2 (test code = 697) EGFR (BEAKER) (test 148 mL/min/1.73 ESTIM ATED GFR IS code = 1092) sq m NOT ACCURATE CREATININE CLEARANCE IN PREDICTING GLOMERULAR FILTRATION RATE . ESTIMATED GFR I S NOT APPLICABLE FOR DIALYSIS PATIEN TS. [id number] 04:13:00 Test Item Value Reference Range Interpretation Comments PROTIME (BEAKER) (test code = 14.9 seconds 11.7-14.7 H 759) INR (BEAKER) (test code = 370) 1.2 <=5.9 PARTIAL THROMBOPLASTIN TIME 42.4 seconds 22.5-36.0 H (BEAKER) (test code = 760) RECOMMENDED COUMADIN/WARFARIN INR THERAPY RANGESSTANDARD DOSE: 2.0 - 3.0 Includes: PROPHYLAXIS forvenous thrombosis, systemic embolization; TREATMENT for venous thrombosis and/or pulmonary embolus.HIGH RISK: Target INR is 2.5-3.5 for patients with mechanical heart valves.Prior to initiating heparinPrior to initiating [id number] 04:13:00 Test Item Value Reference Range Interpretation Comments PARTIAL THROMBOPLASTIN TIME 42.4 seconds 22.5-36.0 H (BEAKER) (test code = 760) LACTIC ACID, ARTERIAL, WHOLE [id number] 04:09:00 Test Item Value Reference Range Interpretation Comments LACTATE BLOOD ARTERIAL (2) 1.1 mmol/L 0.5-2.2 (BEAKER) (test code = 2874) Effective 08/17/2015: Units/Reference Range ChangeNew: 0.5-2.2 mmol/L Previous: 5-20 mg/dLCBC (HEMOGRAM ONLY)2016-11-30 04:03:00 Test Item Value Reference Range Interpretation Comments WHITE BLOOD CELL COUNT (BEAKER) 10.5 K/ L 3.5-10.5 (test code = 775) RED BLOOD CELL COUNT (BEAKER) 2.93 M/ L 4.63-6.08 L (test code = 761) HEMOGLOBIN (BEAKER) (test code = 9.4 GM/DL 13.7-17.5 L 410) HEMATOCRIT (BEAKER) (test code = 27.5 % 40.1-51.0 L 411) MEAN CORPUSCULAR VOLUME (BEAKER) 93.9 fL 79.0-92.2 H (test code = 753) MEAN CORPUSCULAR HEMOGLOBIN 32.1 pg 25.7-32.2 (BEAKER) (test code = 751) MEAN CORPUSCULAR HEMOGLOBIN CONC 34.2 GM/DL 32.3-36.5 (BEAKER) (test code = 752) RED CELL DISTRIBUTION WIDTH 15.3 % 11.6-14.4 H (BEAKER) (test code = 412) PLATELET COUNT (BEAKER) (test 189 K/CU MM 150-450 code = 756) MEAN PLATELET VOLUME (BEAKER) 10.8 fL 9.4-12.4 (test code = 754) NUCLEATED RED BLOOD CELLS 0 /100 WBC 0-0 (BEAKER) (test code = 413) CALCIUM, [id number] 03:54:00 Test Item Value Reference Range Interpretation Comments CALCIUM IONIZED (BEAKER) (test 1.14 mmol/L 1.12-1.27 code = 698) PH, BLOOD (BEAKER) (test code = 7.49 1810) BLOOD GAS, [id number] 03:54:00 Test Item Value Reference Range Interpretation Comments PH ARTERIAL (BEAKER) (test code = 7.48 7.35-7.45 H 383) PCO2 ARTERIAL (BEAKER) (test code 36 mmHg 35-45 = 384) PO2 ARTERIAL (BEAKER) (test code = 81 mmHg 80-90 385) O2 SATURATION ARTERIAL (BEAKER) 96.4 % 96.0-97.0 (test code = 386) HCO3 ARTERIAL (BEAKER) (test code 26 mmol/L 21-29 = 388) BASE EXCESS ARTERIAL (BEAKER) 2.5 mmol/L -2.0-3.0 (test code = 387) PATIENT TEMPERATURE (BEAKER) (test 37.6 C code = 1818) FIO2 (BEAKER) (test code = 1819) 36.0 % POCT-GLUCOSE [id number] 17:32:00 Test Item Value Reference Range Interpretation Comments POC-GLUCOSE METER 121 mg/dL 70-110 H TESTED AT [facility] 67 ([facility]) (test code = TISHA [place] 1538) [address] PLATELET AGGREGATION: FUNCTION [id number] 14:46:00 Test Item Value Reference Range Interpretation Comments WEAK ADP 82 % 60-91 RESULT(BEAKER) (test code = 2135) PLATELET FUNCTION 60-100% indicates SCREEN INTERP ([facility]) normal platelet (test code = 2173) function [id number] Mari Phelan MD ([facility]) (test code = (electronic signature) 6894) PLATELET COUNT AGG 221 K/CU MM 150-450 (BEAKER) (test code = 2656) POCT-GLUCOSE [id number] 12:58:00 Test Item Value Reference Range Interpretation Comments POC-GLUCOSE METER 129 mg/dL 70-110 H TESTED AT [facility] 67[address] ([facility]) (test code = TISHA Cazares [place] 1538) [address] HEMOGLOBIN [id number] 09:09:00 Test Item Value Reference Range Interpretation Comments HEMOGLOBIN A1C (BEAKER) (test code = 5.1 % 4.3-6.1 368) BLOOD GAS, [id number] 06:57:00 Test Item Value Reference Range Interpretation Comments PH ARTERIAL (BEAKER) (test code = 7.46 7.35-7.45 H 383) PCO2 ARTERIAL (BEAKER) (test code 35 mmHg 35-45 = 384) PO2 ARTERIAL (BEAKER) (test code = 130 mmHg 80-90 H 385) O2 SATURATION ARTERIAL (BEAKER) 98.7 % 96.0-97.0 H (test code = 386) HCO3 ARTERIAL (BEAKER) (test code 24 mmol/L 21-29 = 388) BASE EXCESS ARTERIAL (BEAKER) 1.1 mmol/L -2.0-3.0 (test code = 387) PATIENT TEMPERATURE (BEAKER) (test 37.8 C code = 1818) FIO2 (BEAKER) (test code = 1819) 40.0 % POCT-GLUCOSE [id number] 06:01:00 Test Item Value Reference Range Interpretation Comments POC-GLUCOSE METER 154 mg/dL 70-110 H TESTED AT [facility] 6720 (BEAKER) (test code = TISHA Cazares [place] 1538) [address] [id number] 05:02:00 Test Item Value Reference Range Interpretation Comments MAGNESIUM (BEAKER) (test code = 2.0 mg/dL 1.6-2.6 627) BASIC METABOLIC [id number] 05:02:00 Test Item Value Reference Range Interpretation Comments SODIUM (BEAKER) 140 meq/L 136-145 (test code = 381) POTASSIUM (BEAKER) 4.2 meq/L 3.5-5.1 (test code = 379) CHLORIDE (BEAKER) 109 meq/L 98-107 H (test code = 382) CO2 (BEAKER) (test 23 meq/L 22-29 code = 355) BLOOD UREA NITROGEN 7 mg/dL 7-21 (BEAKER) (test code = 354) CREATININE (BEAKER) 0.62 mg/dL 0.57-1.25 (test code = 358) GLUCOSE RANDOM 153 mg/dL 70-105 H (BEAKER) (test code = 652) CALCIUM (BEAKER) 8.4 mg/dL 8.4-10.2 (test code = 697) EGFR (BEAKER) (test 129 mL/min/1.73 ESTIM ATED GFR IS code = 1092) sq m NOT ACCURATE CREATININE CLEARANCE IN PREDICTING GLOMERULAR FILTRATION RATE . ESTIMATED GFR I S NOT APPLICABLE FOR DIALYSIS PATIEN TS. [id number] 04:56:00 Test Item Value Reference Range Interpretation Comments PROTIME (BEAKER) (test code = 13.9 seconds 11.7-14.7 759) INR (BEAKER) (test code = 370) 1.1 <=5.9 PARTIAL THROMBOPLASTIN TIME 36.5 seconds 22.5-36.0 H (BEAKER) (test code = 760) RECOMMENDED COUMADIN/WARFARIN INR THERAPY RANGESSTANDARD DOSE: 2.0 - 3.0 Includes: PROPHYLAXIS forvenous thrombosis, systemic embolization; TREATMENT for venous thrombosis and/or pulmonary embolus.HIGH RISK: Target INR is 2.5-3.5 for patients with mechanical heart valves.CBC W/PLT COUNT & AUTO DIFFERENTIAL 2016-11-29 04:54:00 Test Item Value Reference Range Interpretation Comments WHITE BLOOD CELL COUNT (BEAKER) 8.8 K/ L 3.5-10.5 (test code = 775) RED BLOOD CELL COUNT (BEAKER) 3.28 M/ L 4.63-6.08 L (test code = 761) HEMOGLOBIN (BEAKER) (test code = 10.5 GM/DL 13.7-17.5 L 410) HEMATOCRIT (BEAKER) (test code = 30.8 % 40.1-51.0 L 411) MEAN CORPUSCULAR VOLUME (BEAKER) 93.9 fL 79.0-92.2 H (test code = 753) MEAN CORPUSCULAR HEMOGLOBIN 32.0 pg 25.7-32.2 (BEAKER) (test code = 751) MEAN CORPUSCULAR HEMOGLOBIN CONC 34.1 GM/DL 32.3-36.5 (BEAKER) (test code = 752) RED CELL DISTRIBUTION WIDTH 15.7 % 11.6-14.4 H (BEAKER) (test code = 412) PLATELET COUNT (BEAKER) (test 219 K/CU MM 150-450 code = 756) MEAN PLATELET VOLUME (BEAKER) 11.0 fL 9.4-12.4 (test code = 754) NUCLEATED RED BLOOD CELLS 0 /100 WBC 0-0 (BEAKER) (test code = 413) NEUTROPHILS RELATIVE PERCENT 74 % (BEAKER) (test code = 429) LYMPHOCYTES RELATIVE PERCENT 7 % (BEAKER) (test code = 430) MONOCYTES RELATIVE PERCENT 19 % (BEAKER) (test code = 431) EOSINOPHILS RELATIVE PERCENT 0 % (BEAKER) (test code = 432) BASOPHILS RELATIVE PERCENT 0 % (BEAKER) (test code = 437) NEUTROPHILS ABSOLUTE COUNT 6.45 K/ L 1.78-5.38 H (BEAKER) (test code = 670) LYMPHOCYTES ABSOLUTE COUNT 0.63 K/ L 1.32-3.57 L (BEAKER) (test code = 414) MONOCYTES ABSOLUTE COUNT (BEAKER) 1.64 K/ L 0.30-0.82 H (test code = 415) EOSINOPHILS ABSOLUTE COUNT 0.01 K/ L 0.04-0.54 L (BEAKER) (test code = 416) BASOPHILS ABSOLUTE COUNT (BEAKER) 0.03 K/ L 0.01-0.08 (test code = 417) IMMATURE GRANULOCYTES-RELATIVE 0 % 0-1 PERCENT (BEAKER) (test code = 2801) LACTIC ACID, ARTERIAL, WHOLE [id number] 04:39:00 Test Item Value Reference Range Interpretation Comments LACTATE BLOOD ARTERIAL (2) 1.2 mmol/L 0.5-2.2 (BEAKER) (test code = 2874) Effective 08/17/2015: Units/Reference Range ChangeNew: 0.5-2.2 mmol/L Previous: 5-20 mg/dLCALCIUM, [id number] 04:11:00 Test Item Value Reference Range Interpretation Comments CALCIUM IONIZED (BEAKER) (test 1.17 mmol/L 1.12-1.27 code = 698) PH, BLOOD (BEAKER) (test code = 7.44 1810) BLOOD GAS, [id number] 04:11:00 Test Item Value Reference Range Interpretation Comments PH ARTERIAL (BEAKER) (test code = 7.42 7.35-7.45 383) PCO2 ARTERIAL (BEAKER) (test code 39 mmHg 35-45 = 384) PO2 ARTERIAL (BEAKER) (test code = 110 mmHg 80-90 H 385) O2 SATURATION ARTERIAL (BEAKER) 97.9 % 96.0-97.0 H (test code = 386) HCO3 ARTERIAL (BEAKER) (test code 25 mmol/L 21-29 = 388) BASE EXCESS ARTERIAL (BEAKER) 0.6 mmol/L -2.0-3.0 (test code = 387) PATIENT TEMPERATURE (BEAKER) (test 38.2 C code = 1818) FIO2 (BEAKER) (test code = 1819) 40.0 % OXYGEN SATURATION, [id number] 04:09:00 Test Item Value Reference Range Interpretation Comments O2 SATURATION (MEASURED) (BEAKER) 80.7 % (test code = 1455) POCT-GLUCOSE [id number] 02:46:00 Test Item Value Reference Range Interpretation Comments POC-GLUCOSE METER 150 mg/dL 70-110 H TESTED AT [facility] 6720 (BEAKER) (test code = TISHA Cazares [place] 1538) [id number] POCT-GLUCOSE [id number] 18:29:00 Test Item Value Reference Range Interpretation Comments POC-GLUCOSE METER 111 mg/dL 70-110 H TESTED AT [facility] 6720 (BEAKER) (test code = TISHA Cazares [place] 1538) [address] [id number] 16:27:00 Test Item Value Reference Range Interpretation Comments POTASSIUM (BEAKER) (test code = 4.2 meq/L 3.5-5.1 379) [id number] 16:27:00 Test Item Value Reference Range Interpretation Comments MAGNESIUM (BEAKER) (test code = 2.1 mg/dL 1.6-2.6 627) [id number] 16:27:00 Test Item Value Reference Range Interpretation Comments SODIUM (BEAKER) (test code = 381) 141 meq/L 136-145 BASIC METABOLIC [id number] 16:27:00 Test Item Value Reference Range Interpretation Comments SODIUM (BEAKER) 141 meq/L 136-145 (test code = 381) POTASSIUM (BEAKER) 4.2 meq/L 3.5-5.1 (test code = 379) CHLORIDE (BEAKER) 112 meq/L 98-107 H (test code = 382) CO2 (BEAKER) (test 21 meq/L 22-29 L code = 355) BLOOD UREA NITROGEN 8 mg/dL 7-21 (BEAKER) (test code = 354) CREATININE (BEAKER) 0.61 mg/dL 0.57-1.25 (test code = 358) GLUCOSE RANDOM 167 mg/dL 70-105 H (BEAKER) (test code = 652) CALCIUM (BEAKER) 8.5 mg/dL 8.4-10.2 (test code = 697) EGFR (BEAKER) (test 131 mL/min/1.73 ESTIM ATED GFR IS code = 1092) sq m NOT ACCURATE CREATININE CLEARANCE IN PREDICTING GLOMERULAR FILTRATION RATE . ESTIMATED GFR I S NOT APPLICABLE FOR DIALYSIS PATIEN TS. LACTIC ACID, ARTERIAL, WHOLE [id number] 16:23:00 Test Item Value Reference Range Interpretation Comments LACTATE BLOOD 1.8 mmol/L 0.5-2.2 Specimen sligh tly ARTERIAL (2) (BEAKER) hemoly zed (test code = 2874) Effective 08/17/2015: Units/Reference Range ChangeNew: 0.5-2.2 mmol/L Previous: 5-20 mg/dLPT/[id number] 16:18:00 Test Item Value Reference Range Interpretation Comments PROTIME (BEAKER) (test code = 14.2 seconds 11.7-14.7 759) INR (BEAKER) (test code = 370) 1.1 <=5.9 PARTIAL THROMBOPLASTIN TIME 35.0 seconds 22.5-36.0 (BEAKER) (test code = 760) RECOMMENDED COUMADIN/WARFARIN INR THERAPY RANGESSTANDARD DOSE: 2.0 - 3.0 Includes: PROPHYLAXIS forvenous thrombosis, systemic embolization; TREATMENT for venous thrombosis and/or pulmonary embolus.HIGH RISK: Target INR is 2.5-3.5 for patients with mechanical heart valves.HEMOGLOBIN AND [id number] 16:10:00 Test Item Value Reference Range Interpretation Comments HEMOGLOBIN (BEAKER) (test code = 10.0 GM/DL 13.7-17.5 L 410) HEMATOCRIT (BEAKER) (test code = 29.0 % 40.1-51.0 L 411) CBC (HEMOGRAM ONLY)2016-11-28 16:10:00 Test Item Value Reference Range Interpretation Comments WHITE BLOOD CELL COUNT (BEAKER) 7.6 K/ L 3.5-10.5 (test code = 775) RED BLOOD CELL COUNT (BEAKER) 3.06 M/ L 4.63-6.08 L (test code = 761) HEMOGLOBIN (BEAKER) (test code = 10.0 GM/DL 13.7-17.5 L 410) HEMATOCRIT (BEAKER) (test code = 29.0 % 40.1-51.0 L 411) MEAN CORPUSCULAR VOLUME (BEAKER) 94.8 fL 79.0-92.2 H (test code = 753) MEAN CORPUSCULAR HEMOGLOBIN 32.7 pg 25.7-32.2 H (BEAKER) (test code = 751) MEAN CORPUSCULAR HEMOGLOBIN CONC 34.5 GM/DL 32.3-36.5 (BEAKER) (test code = 752) RED CELL DISTRIBUTION WIDTH 15.2 % 11.6-14.4 H (BEAKER) (test code = 412) PLATELET COUNT (BEAKER) (test 208 K/CU MM 150-450 code = 756) MEAN PLATELET VOLUME (BEAKER) 10.4 fL 9.4-12.4 (test code = 754) NUCLEATED RED BLOOD CELLS 0 /100 WBC 0-0 (BEAKER) (test code = 413) BLOOD GAS, [id number] 16:03:00 Test Item Value Reference Range Interpretation Comments PH ARTERIAL (BEAKER) (test code = 7.36 7.35-7.45 383) PCO2 ARTERIAL (BEAKER) (test code 45 mmHg 35-45 = 384) PO2 ARTERIAL (BEAKER) (test code 142 mmHg 80-90 H = 385) O2 SATURATION ARTERIAL (BEAKER) 98.8 % 96.0-97.0 H (test code = 386) HCO3 ARTERIAL (BEAKER) (test code 25 mmol/L 21-29 = 388) BASE EXCESS ARTERIAL (BEAKER) -1.2 mmol/L -2.0-3.0 (test code = 387) PATIENT TEMPERATURE (BEAKER) 35.8 C (test code = 1818) FIO2 (BEAKER) (test code = 1819) 60.0 % CALCIUM, [id number] 16:03:00 Test Item Value Reference Range Interpretation Comments CALCIUM IONIZED (BEAKER) (test 1.18 mmol/L 1.12-1.27 code = 698) PH, BLOOD (BEAKER) (test code = 7.36 1810) OXYGEN SATURATION, [id number] 16:02:00 Test Item Value Reference Range Interpretation Comments O2 SATURATION (MEASURED) (BEAKER) 82.9 % (test code = 1455) [id number] 15:26:00 Test Item Value Reference Range Interpretation Comments ACTIVATED CLOTTING TIME 120 sec TEST ED AT [facility] 67[facility] (BEAKER) (test code = [place] [address]) [id number] 15:26:00 Test Item Value Reference Range Interpretation Comments ACTIVATED CLOTTING TIME 802 sec [facility] ED [facility] [place] [address] [facility] (test code = [place] [address]) [id number] 15:26:00 Test Item Value Reference Range Interpretation Comments ACTIVATED CLOTTING TIME 884 sec TEST ED AT [place] [address] ([facility]) (test code = T[place] [address]) [id number] 15:26:00 Test Item Value Reference Range Interpretation Comments ACTIVATED CLOTTING TIME 621 sec TEST ED AT [place] [address] (BEAKER) (test code = TIS[place] C[place] [address]) [id number] THROMBOELASTOGRAPH (TEG)2016-11-28 14:00:00 Test Item Value Reference Range Interpretation Comments TEG ACTIVATED CLOTTING TIME 8.7 minutes 4.0-7.0 H (BEAKER) (test code = 1407) TEG FIBRINOGEN ACTIVITY (BEAKER) 73.1 degrees 61.0-73.0 H (test code = 1408) TEG PLT. AGGREGATION (BEAKER) 70.6 MM 55.0-65.0 H (test code = 1409) TGH ACTIVATED CLOTTING TIME 8.7 minutes 4.0-7.0 H (BEAKER) (test code = 1411) TGH FIBRINOGEN ACTIVITY (BEAKER) 73.0 degrees 61.0-73.0 (test code = 1412) TGH PLT. AGGREGATION (BEAKER) 69.3 MM 55.0-65.0 H (test code = 1413) [id number] 13:28:00 Test Item Value Reference Range Interpretation Comments FIBRINOGEN LEVEL (BEAKER) (test 458 mg/dl 225-434 H code = 658) [id number] 13:28:00 Test Item Value Reference Range Interpretation Comments PARTIAL THROMBOPLASTIN TIME 39.7 seconds 22.5-36.0 H (BEAKER) (test code = 760) PROTHROMBIN [id number] 13:27:00 Test Item Value Reference Range Interpretation Comments PROTIME (BEAKER) (test code = 17.4 seconds 11.7-14.7 H 759) INR (BEAKER) (test code = 370) 1.4 <=5.9 RECOMMENDED COUMADIN/WARFARIN INR THERAPY RANGESSTANDARD DOSE: 2.0 - 3.0 Includes: PROPHYLAXIS forvenous thrombosis, systemic embolization; TREATMENT for venous thrombosis and/or pulmonary embolus.HIGH RISK: Target INR is 2.5-3.5 for patients with mechanical heart valves.PLATELET [id number] 13:21:00 Test Item Value Reference Range Interpretation Comments PLATELET COUNT 151 K/CU MM 150-450 Discordant re sult (BEAKER) (test code compared to previous = 756) result; clinica l correlation req uired. CALCIUM, [id number] 13:06:00 Test Item Value Reference Range Interpretation Comments CALCIUM IONIZED (BEAKER) (test 1.07 mmol/L 1.12-1.27 L code = 698) PH, BLOOD (BEAKER) (test code = 7.31 1810) SODIUM NA-STAT [id number] 13:05:00 Test Item Value Reference Range Interpretation Comments SODIUM (BEAKER) (test code = 381) 135 meq/L 135-148 POTASSIUM-STAT [id number] 13:05:00 Test Item Value Reference Range Interpretation Comments POTASSIUM (BEAKER) (test code = 4.4 meq/L 3.6-5.5 379) BLOOD GAS, [id number] 13:05:00 Test Item Value Reference Range Interpretation Comments PH ARTERIAL (BEAKER) (test code = 7.34 7.35-7.45 L 383) PCO2 ARTERIAL (BEAKER) (test code 45 mmHg 35-45 = 384) PO2 ARTERIAL (BEAKER) (test code 292 mmHg 80-90 H = 385) O2 SATURATION ARTERIAL (BEAKER) 99.6 % 96.0-97.0 H (test code = 386) HCO3 ARTERIAL (BEAKER) (test code 24 mmol/L 21-29 = 388) BASE EXCESS ARTERIAL (BEAKER) -2.1 mmol/L -2.0-3.0 L (test code = 387) PATIENT TEMPERATURE (BEAKER) 35.2 C (test code = 1818) FIO2 (BEAKER) (test code = 1819) 67.0 % GLUCOSE-STAT [id number] 13:05:00 Test Item Value Reference Range Interpretation Comments GLUCOSE RANDOM (BEAKER) (test code 145 mg/dL 70-110 H = 652) HGB/HCT (H&H) - STAT [id number] 13:05:00 Test Item Value Reference Range Interpretation Comments HEMOGLOBIN (BEAKER) (test code = 10.2 g/dL 13.0-16.8 L 410) HEMATOCRIT (BEAKER) (test code = 30.0 % 40.0-50.0 L 411) BLOOD GAS, [id number] 12:26:00 Test Item Value Reference Range Interpretation Comments PH ARTERIAL (BEAKER) (test code = 7.38 7.35-7.45 383) PCO2 ARTERIAL (BEAKER) (test code 42 mmHg 35-45 = 384) PO2 ARTERIAL (BEAKER) (test code 133 mmHg 80-90 H = 385) O2 SATURATION ARTERIAL (BEAKER) 98.6 % 96.0-97.0 H (test code = 386) HCO3 ARTERIAL (BEAKER) (test code 24 mmol/L 21-29 = 388) BASE EXCESS ARTERIAL (BEAKER) -0.7 mmol/L -2.0-3.0 (test code = 387) PATIENT TEMPERATURE (BEAKER) 37.0 C (test code = 1818) FIO2 (BEAKER) (test code = 1819) 65.0 % GLUCOSE-STAT [id number] 12:26:00 Test Item Value Reference Range Interpretation Comments GLUCOSE RANDOM (BEAKER) (test code 132 mg/dL 70-110 H = 652) HGB/HCT (H&H) - STAT [id number] 12:26:00 Test Item Value Reference Range Interpretation Comments HEMOGLOBIN (BEAKER) (test code = 10.6 g/dL 13.0-16.8 L 410) HEMATOCRIT (BEAKER) (test code = 31.0 % 40.0-50.0 L 411) SODIUM NA-STAT [id number] 12:25:00 Test Item Value Reference Range Interpretation Comments SODIUM (BEAKER) (test code = 381) 136 meq/L 135-148 POTASSIUM-STAT [id number] 12:25:00 Test Item Value Reference Range Interpretation Comments POTASSIUM (BEAKER) (test code = 4.4 meq/L 3.6-5.5 379) BLOOD GAS, [id number] 12:03:00 Test Item Value Reference Range Interpretation Comments PH VENOUS (BEAKER) (test code = 7.41 7.32-7.42 701) PCO2 VENOUS (BEAKER) (test code = 39 mmHg 41-51 L 755) PO2 VENOUS (BEAKER) (test code = 43 mmHg 25-40 H 702) O2 SATURATION VENOUS (BEAKER) 91.8 % 40.0-70.0 H (test code = 703) HCO3 VENOUS (BEAKER) (test code = 26 mmol/L 21-29 705) BASE EXCESS VENOUS (BEAKER) (test -0.6 mmol/L -2.0-3.0 code = 704) PATIENT TEMPERATURE (BEAKER) 30.1 C (test code = 1818) FIO2 (BEAKER) (test code = 1819) 65.0 % POTASSIUM-STAT [id number] 12:00:00 Test Item Value Reference Range Interpretation Comments POTASSIUM (BEAKER) (test code = 4.7 meq/L 3.6-5.5 379) BLOOD GAS, [id number] 12:00:00 Test Item Value Reference Range Interpretation Comments PH ARTERIAL (BEAKER) (test code = 7.45 7.35-7.45 383) PCO2 ARTERIAL (BEAKER) (test code 34 mmHg 35-45 L = 384) PO2 ARTERIAL (BEAKER) (test code 304 mmHg 80-90 H = 385) O2 SATURATION ARTERIAL (BEAKER) 99.7 % 96.0-97.0 H (test code = 386) HCO3 ARTERIAL (BEAKER) (test code 25 mmol/L 21-29 = 388) BASE EXCESS ARTERIAL (BEAKER) -0.8 mmol/L -2.0-3.0 (test code = 387) PATIENT TEMPERATURE (BEAKER) 30.1 C (test code = 1818) FIO2 (BEAKER) (test code = 1819) 65.0 % GLUCOSE-STAT [id number] 12:00:00 Test Item Value Reference Range Interpretation Comments GLUCOSE RANDOM (BEAKER) (test code 140 mg/dL 70-110 H = 652) HGB/HCT (H&H) - STAT [id number] 12:00:00 Test Item Value Reference Range Interpretation Comments HEMOGLOBIN (BEAKER) (test code = 10.4 g/dL 13.0-16.8 L 410) HEMATOCRIT (BEAKER) (test code = 31.0 % 40.0-50.0 L 411) SODIUM NA-STAT [id number] 12:00:00 Test Item Value Reference Range Interpretation Comments SODIUM (BEAKER) (test code = 381) 131 meq/L 135-148 L PLATELET AGGREGATION: FUNCTION [id number] 11:08:00 Test Item Value Reference Range Interpretation Comments WEAK ADP 76 % 60-91 RESULT(BEAKER) (test code = 2135) PLATELET FUNCTION 60-100% indicates SCREEN INTERP (BEAKER) normal platelet (test code = 2173) function [id number] Mari Phelan MD (BEAKER) (test code = (electronic signature) 7082) PLATELET COUNT AGG 222 K/CU MM 150-450 (BEAKER) (test code = 2656) for patients on clopidogrel in past two weeksHEMOGLOBIN [id number] 08:57:00 Test Item Value Reference Range Interpretation Comments HEMOGLOBIN A1C (BEAKER) (test code = 5.0 % 4.3-6.1 368) CBC W/PLT COUNT & AUTO [id number] 05:54:00 Test Item Value Reference Range Interpretation Comments WHITE BLOOD CELL COUNT (BEAKER) 9.9 K/ L 3.5-10.5 (test code = 775) RED BLOOD CELL COUNT (BEAKER) 4.14 M/ L 4.63-6.08 L (test code = 761) HEMOGLOBIN (BEAKER) (test code = 13.4 GM/DL 13.7-17.5 L 410) HEMATOCRIT (BEAKER) (test code = 39.0 % 40.1-51.0 L 411) MEAN CORPUSCULAR VOLUME (BEAKER) 94.2 fL 79.0-92.2 H (test code = 753) MEAN CORPUSCULAR HEMOGLOBIN 32.4 pg 25.7-32.2 H (BEAKER) (test code = 751) MEAN CORPUSCULAR HEMOGLOBIN CONC 34.4 GM/DL 32.3-36.5 (BEAKER) (test code = 752) RED CELL DISTRIBUTION WIDTH 14.7 % 11.6-14.4 H (BEAKER) (test code = 412) PLATELET COUNT (BEAKER) (test 224 K/CU MM 150-450 code = 756) MEAN PLATELET VOLUME (BEAKER) 11.1 fL 9.4-12.4 (test code = 754) NUCLEATED RED BLOOD CELLS 0 /100 WBC 0-0 (BEAKER) (test code = 413) NEUTROPHILS RELATIVE PERCENT 72 % (BEAKER) (test code = 429) LYMPHOCYTES RELATIVE PERCENT 15 % (BEAKER) (test code = 430) MONOCYTES RELATIVE PERCENT 11 % (BEAKER) (test code = 431) EOSINOPHILS RELATIVE PERCENT 1 % (BEAKER) (test code = 432) BASOPHILS RELATIVE PERCENT 0 % (BEAKER) (test code = 437) NEUTROPHILS ABSOLUTE COUNT 7.13 K/ L 1.78-5.38 H (BEAKER) (test code = 670) LYMPHOCYTES ABSOLUTE COUNT 1.49 K/ L 1.32-3.57 (BEAKER) (test code = 414) MONOCYTES ABSOLUTE COUNT (BEAKER) 1.13 K/ L 0.30-0.82 H (test code = 415) EOSINOPHILS ABSOLUTE COUNT 0.07 K/ L 0.04-0.54 (BEAKER) (test code = 416) BASOPHILS ABSOLUTE COUNT (BEAKER) 0.02 K/ L 0.01-0.08 (test code = 417) IMMATURE GRANULOCYTES-RELATIVE 0 % 0-1 PERCENT (BEAKER) (test code = 2801) [id number] 05:37:00 Test Item Value Reference Range Interpretation Comments PARTIAL THROMBOPLASTIN TIME 56.5 seconds 22.5-36.0 H (BEAKER) (test code = 760) BASIC METABOLIC [id number] 05:33:00 Test Item Value Reference Range Interpretation Comments SODIUM (BEAKER) 141 meq/L 136-145 (test code = 381) POTASSIUM (BEAKER) 4.2 meq/L 3.5-5.1 (test code = 379) CHLORIDE (BEAKER) 104 meq/L 98-107 (test code = 382) CO2 (BEAKER) (test 28 meq/L 22-29 code = 355) BLOOD UREA NITROGEN 10 mg/dL 7-21 (BEAKER) (test code = 354) CREATININE (BEAKER) 0.69 mg/dL 0.57-1.25 (test code = 358) GLUCOSE RANDOM 127 mg/dL 70-105 H (BEAKER) (test code = 652) CALCIUM (BEAKER) 9.3 mg/dL 8.4-10.2 (test code = 697) EGFR (BEAKER) (test 114 mL/min/1.73 ESTIM ATED GFR IS code = 1092) sq m NOT ACCURATE CREATININE CLEARANCE IN PREDICTING GLOMERULAR FILTRATION RATE . ESTIMATED GFR I S NOT APPLICABLE FOR DIALYSIS PATIEN TS. PROTHROMBIN [id number] 05:33:00 Test Item Value Reference Range Interpretation Comments PROTIME (BEAKER) (test code = 13.3 seconds 11.7-14.7 759) INR (BEAKER) (test code = 370) 1.0 <=5.9 RECOMMENDED COUMADIN/WARFARIN INR THERAPY RANGESSTANDARD DOSE: 2.0 - 3.0 Includes: PROPHYLAXIS forvenous thrombosis, systemic embolization; TREATMENT for venous thrombosis and/or pulmonary embolus.HIGH RISK: Target INR is 2.5-3.5 for patients with mechanical heart valves.[id number] 19:22:00 Test Item Value Reference Range Interpretation Comments PARTIAL THROMBOPLASTIN TIME 37.4 seconds 22.5-36.0 H (BEAKER) (test code = 760) PROTHROMBIN [id number] 19:21:00 Test Item Value Reference Range Interpretation Comments PROTIME (BEAKER) (test code = 12.8 seconds 11.7-14.7 759) INR (BEAKER) (test code = 370) 1.0 <=5.9 RECOMMENDED COUMADIN/WARFARIN INR THERAPY RANGESSTANDARD DOSE: 2.0 - 3.0 Includes: PROPHYLAXIS forvenous thrombosis, systemic embolization; TREATMENT for venous thrombosis and/or pulmonary embolus.HIGH RISK: Target INR is 2.5-3.5 for patients with mechanical heart valves.[id number] 11:49:00 Test Item Value Reference Range Interpretation Comments PARTIAL THROMBOPLASTIN TIME 34.7 seconds 22.5-36.0 (BEAKER) (test code = 760) Prior to initiating heparinPLATELET [id number] 11:31:00 Test Item Value Reference Range Interpretation Comments PLATELET COUNT (BEAKER) (test 199 K/CU MM 150-450 code = 756) PLATELET AGGREGATION: FUNCTION [id number] 11:12:00 Test Item Value Reference Range Interpretation Comments WEAK ADP 90 % 60-91 RESULT(BEAKER) (test code = 2135) PLATELET FUNCTION 60-100% indicates SCREEN INTERP (BEAKER) normal platelet (test code = 2173) function [id number] aMri Phelan MD ([facility]) (test code = (electronic signature) 1133) PLATELET COUNT AGG 200 K/CU MM 150-450 (AKER) (test code = 2656) HEMOGLOBIN [id number] 08:38:00 Test Item Value Reference Range Interpretation Comments HEMOGLOBIN A1C ([facility]) (test code = 5.5 % 4.3-6.1 368) TROPONIN [id number] 08:35:00 Test Item Value Reference Range Interpretation Comments TROPONIN I ([facility]) (test code = 0.40 ng/mL 0.00-0.03 HH 397) Effective 03/02/2014: Reference Range ChangeNew: 0.00-0.03 Previous [...] and persistent tachyarrhythmia.CREATINE KINASE (CK), TOTAL AND MB 2016-11-27 08:27:00 Test Item Value Reference Range Interpretation Comments CREATINE KINASE TOTAL ([facility]) 39 U/L 29-200 (test code = 380) CREATINE KINASE-MB ([facility]) (test 1.6 ng/mL 0.0-6.6 code = 750) CREATINE KINASE-MB INDEX ([facility]) 4.1 % (test code = 395) Effective 03/02/2014: CK-MB Reference Range ChangeNew: 0.0-6.6 Previous: 0.0-4.9CK-MB Reference Range:<6.7 Normal6.7-10.0 Borderline>10.0 AbnormalPOCT-GLUCOSE [id number] 08:23:00 Test Item Value Reference Range Interpretation Comments POC-GLUCOSE METER 104 mg/dL 70-110 TESTED AT [facility] 67[address] ([facility]) (test code = TISHA ARCE 1538) [address] PROTHROMBIN [id number] 04:32:00 Test Item Value Reference Range Interpretation Comments PROTIME (BEAKER) (test code = 13.5 seconds 11.7-14.7 759) INR (BEAKER) (test code = 370) 1.0 <=5.9 RECOMMENDED COUMADIN/WARFARIN INR THERAPY RANGESSTANDARD DOSE: 2.0 - 3.0 Includes: PROPHYLAXIS forvenous thrombosis, systemic embolization; TREATMENT for venous thrombosis and/or pulmonary embolus.HIGH RISK: Target INR is 2.5-3.5 for patients with mechanical heart valves.[id number] 02:13:00 Test Item Value Reference Range Interpretation Comments PHOSPHORUS (BEAKER) (test code = 3.9 mg/dL 2.3-4.7 604) [id number] 02:13:00 Test Item Value Reference Range Interpretation Comments MAGNESIUM (BEAKER) (test code = 2.1 mg/dL 1.6-2.6 627) BASIC METABOLIC [id number] 02:13:00 Test Item Value Reference Range Interpretation Comments SODIUM (BEAKER) 141 meq/L 136-145 (test code = 381) POTASSIUM (BEAKER) 4.3 meq/L 3.5-5.1 (test code = 379) CHLORIDE (BEAKER) 104 meq/L 98-107 (test code = 382) CO2 (BEAKER) (test 28 meq/L 22-29 code = 355) BLOOD UREA NITROGEN 8 mg/dL 7-21 (BEAKER) (test code = 354) CREATININE (BEAKER) 0.67 mg/dL 0.57-1.25 (test code = 358) GLUCOSE RANDOM 98 mg/dL 70-105 (BEAKER) (test code = 652) CALCIUM (BEAKER) 9.2 mg/dL 8.4-10.2 (test code = 697) EGFR (BEAKER) (test 118 mL/min/1.73 ESTIM ATED GFR IS code = 1092) sq m NOT ACCURATE CREATININE CLEARANCE IN PREDICTING GLOMERULAR FILTRATION RATE . ESTIMATED GFR I S NOT APPLICABLE FOR DIALYSIS PATIEN TS. CBC W/PLT COUNT & AUTO [id number] 01:44:00 Test Item Value Reference Range Interpretation Comments WHITE BLOOD CELL COUNT (BEAKER) 8.1 K/ L 3.5-10.5 (test code = 775) RED BLOOD CELL COUNT (BEAKER) 3.92 M/ L 4.63-6.08 L (test code = 761) HEMOGLOBIN (BEAKER) (test code = 12.6 GM/DL 13.7-17.5 L 410) HEMATOCRIT (BEAKER) (test code = 37.3 % 40.1-51.0 L 411) MEAN CORPUSCULAR VOLUME (BEAKER) 95.2 fL 79.0-92.2 H (test code = 753) MEAN CORPUSCULAR HEMOGLOBIN 32.1 pg 25.7-32.2 (BEAKER) (test code = 751) MEAN CORPUSCULAR HEMOGLOBIN CONC 33.8 GM/DL 32.3-36.5 (BEAKER) (test code = 752) RED CELL DISTRIBUTION WIDTH 15.2 % 11.6-14.4 H (BEAKER) (test code = 412) PLATELET COUNT (BEAKER) (test 207 K/CU MM 150-450 code = 756) MEAN PLATELET VOLUME (BEAKER) 10.8 fL 9.4-12.4 (test code = 754) NUCLEATED RED BLOOD CELLS 0 /100 WBC 0-0 (BEAKER) (test code = 413) NEUTROPHILS RELATIVE PERCENT 51 % (BEAKER) (test code = 429) LYMPHOCYTES RELATIVE PERCENT 30 % (BEAKER) (test code = 430) MONOCYTES RELATIVE PERCENT 17 % (BEAKER) (test code = 431) EOSINOPHILS RELATIVE PERCENT 2 % (BEAKER) (test code = 432) BASOPHILS RELATIVE PERCENT 0 % (BEAKER) (test code = 437) NEUTROPHILS ABSOLUTE COUNT 4.09 K/ L 1.78-5.38 (BEAKER) (test code = 670) LYMPHOCYTES ABSOLUTE COUNT 2.38 K/ L 1.32-3.57 (BEAKER) (test code = 414) MONOCYTES ABSOLUTE COUNT (BEAKER) 1.34 K/ L 0.30-0.82 H (test code = 415) EOSINOPHILS ABSOLUTE COUNT 0.19 K/ L 0.04-0.54 (BEAKER) (test code = 416) BASOPHILS ABSOLUTE COUNT (BEAKER) 0.03 K/ L 0.01-0.08 (test code = 417) IMMATURE GRANULOCYTES-RELATIVE 0 % 0-1 PERCENT (BEAKER) (test code = 2801) [id number] 01:31:00 Test Item Value Reference Range Interpretation Comments PROTIME (BEAKER) (test code = 13.1 seconds 11.7-14.7 759) INR (BEAKER) (test code = 370) 1.0 <=5.9 PARTIAL THROMBOPLASTIN TIME 35.3 seconds 22.5-36.0 (BEAKER) (test code = 760) RECOMMENDED COUMADIN/WARFARIN INR THERAPY RANGESSTANDARD DOSE: 2.0 - 3.0 Includes: PROPHYLAXIS forvenous thrombosis, systemic embolization; TREATMENT for venous thrombosis and/or pulmonary embolus.HIGH RISK: Target INR is 2.5-3.5 for patients with mechanical heart valves.TROPONIN [id number] 00:46:00 Test Item Value Reference Range Interpretation Comments TROPONIN I (BEAKER) (test code = 0.51 ng/mL 0.00-0.03 HH 397) Effective 03/02/2014: Reference Range ChangeNew: 0.00-0.03 Previous [...] and persistent tachyarrhythmia.CREATINE KINASE (CK), TOTAL AND MB 2016-11-27 00:34:00 Test Item Value Reference Range Interpretation Comments CREATINE KINASE TOTAL (BEAKER) 44 U/L 29-200 (test code = 380) CREATINE KINASE-MB (BEAKER) (test 2.1 ng/mL 0.0-6.6 code = 750) CREATINE KINASE-MB INDEX (BEAKER) 4.8 % (test code = 395) Effective 03/02/2014: CK-MB Reference Range ChangeNew: 0.0-6.6 Previous: 0.0-4.9CK-MB Reference Range:<6.7 Normal6.7-10.0 Borderline>10.0 [id number] 06:58:00 Test Item Value Reference Range Interpretation Comments PHOSPHORUS (BEAKER) (test code = 3.7 mg/dL 2.3-4.7 604) [id number] 06:58:00 Test Item Value Reference Range Interpretation Comments MAGNESIUM (BEAKER) (test code = 1.9 mg/dL 1.6-2.6 627) BASIC METABOLIC [id number] 06:58:00 Test Item Value Reference Range Interpretation Comments SODIUM (BEAKER) 139 meq/L 136-145 (test code = 381) POTASSIUM (BEAKER) 4.1 meq/L 3.5-5.1 (test code = 379) CHLORIDE (BEAKER) 106 meq/L 98-107 (test code = 382) CO2 (BEAKER) (test 24 meq/L 22-29 code = 355) BLOOD UREA NITROGEN 12 mg/dL 7-21 (BEAKER) (test code = 354) CREATININE (BEAKER) 0.67 mg/dL 0.57-1.25 (test code = 358) GLUCOSE RANDOM 82 mg/dL 70-105 (BEAKER) (test code = 652) CALCIUM (BEAKER) 8.7 mg/dL 8.4-10.2 (test code = 697) EGFR (BEAKER) (test 118 mL/min/1.73 ESTIM ATED GFR IS code = 1092) sq m NOT ACCURATE CREATININE CLEARANCE IN PREDICTING GLOMERULAR FILTRATION RATE . ESTIMATED GFR I S NOT APPLICABLE FOR DIALYSIS PATIEN TS. [id number] 06:36:00 Test Item Value Reference Range Interpretation Comments PHOSPHORUS (BEAKER) (test code = 4.1 mg/dL 2.3-4.7 604) [id number] 06:36:00 Test Item Value Reference Range Interpretation Comments MAGNESIUM (BEAKER) (test code = 2.0 mg/dL 1.6-2.6 627) BASIC METABOLIC [id number] 06:36:00 Test Item Value Reference Range Interpretation Comments SODIUM (BEAKER) 140 meq/L 136-145 (test code = 381) POTASSIUM (BEAKER) 4.3 meq/L 3.5-5.1 (test code = 379) CHLORIDE (BEAKER) 107 meq/L 98-107 (test code = 382) CO2 (BEAKER) (test 24 meq/L 22-29 code = 355) BLOOD UREA NITROGEN 10 mg/dL 7-21 (BEAKER) (test code = 354) CREATININE (BEAKER) 0.64 mg/dL 0.57-1.25 (test code = 358) GLUCOSE RANDOM 78 mg/dL 70-105 (BEAKER) (test code = 652) CALCIUM (BEAKER) 9.1 mg/dL 8.4-10.2 (test code = 697) EGFR (BEAKER) (test 125 mL/min/1.73 ESTIM ATED GFR IS code = 1092) sq m NOT ACCURATE CREATININE CLEARANCE IN PREDICTING GLOMERULAR FILTRATION RATE . ESTIMATED GFR I S NOT APPLICABLE FOR DIALYSIS PATIEN TS. [id number] 15:50:00 Test Item Value Reference Range Interpretation Comments RPR SCREEN (BEAKER) (test code = Nonreactive Nonreactive 420) HEMOGLOBIN [id number] 10:29:00 Test Item Value Reference Range Interpretation Comments HEMOGLOBIN A1C (BEAKER) (test code = 5.4 % 4.3-6.1 368) VITAMIN B12 AND [id number] 09:21:00 Test Item Value Reference Range Interpretation Comments VITAMIN B12 (BEAKER) (test code = 335 pg/mL 213-816 774) FOLATE (BEAKER) (test code = 362) 36.6 ng/mL >=7.0 Effective 03/02/2014: Folate Reference Range ChangeNew: >=7.0 Previous: >=5.4CBC W/PLT COUNT & AUTO [id number] 08:15:00 Test Item Value Reference Range Interpretation Comments WHITE BLOOD CELL COUNT (BEAKER) 7.2 K/ L 4.0-10.0 (test code = 775) RED BLOOD CELL COUNT (BEAKER) 4.30 M/ L 4.20-5.80 (test code = 761) HEMOGLOBIN (BEAKER) (test code = 14.0 GM/DL 13.0-16.8 410) HEMATOCRIT (BEAKER) (test code = 42.7 % 40.0-50.0 411) MEAN CORPUSCULAR VOLUME (BEAKER) 99.3 fL 82.0-98.0 H (test code = 753) MEAN CORPUSCULAR HEMOGLOBIN 32.6 pg 27.0-33.0 (BEAKER) (test code = 751) MEAN CORPUSCULAR HEMOGLOBIN CONC 32.9 GM/DL 32.0-36.0 (BEAKER) (test code = 752) RED CELL DISTRIBUTION WIDTH 15.3 % 10.3-14.2 H (BEAKER) (test code = 412) PLATELET COUNT (BEAKER) (test 217 K/CU MM 150-430 code = 756) MEAN PLATELET VOLUME (BEAKER) 8.2 fL 6.5-10.5 (test code = 754) NUCLEATED RED BLOOD CELLS 0 /100 WBC 0-0 (BEAKER) (test code = 413) NEUTROPHILS RELATIVE PERCENT 48 % (BEAKER) (test code = 429) LYMPHOCYTES RELATIVE PERCENT 38 % (BEAKER) (test code = 430) MONOCYTES RELATIVE PERCENT 12 % (BEAKER) (test code = 431) EOSINOPHILS RELATIVE PERCENT 2 % (BEAKER) (test code = 432) BASOPHILS RELATIVE PERCENT 1 % (BEAKER) (test code = 437) NEUTROPHILS ABSOLUTE COUNT 3.42 K/ L 1.80-8.00 (BEAKER) (test code = 670) LYMPHOCYTES ABSOLUTE COUNT 2.70 K/ L 1.48-4.50 (BEAKER) (test code = 414) MONOCYTES ABSOLUTE COUNT (BEAKER) 0.82 K/ L 0.00-1.30 (test code = 415) EOSINOPHILS ABSOLUTE COUNT 0.17 K/ L 0.00-0.50 (BEAKER) (test code = 416) BASOPHILS ABSOLUTE COUNT (BEAKER) 0.05 K/ L 0.00-0.20 (test code = 417) 0.00TSH/FREE T4 IF [id number] 08:00:00 Test Item Value Reference Range Interpretation Comments THYROID STIMULATING HORMONE 1.39 uIU/mL 0.35-4.94 (BEAKER) (test code = 772) BASIC METABOLIC [id number] 07:26:00 Test Item Value Reference Range Interpretation Comments SODIUM (BEAKER) 140 meq/L 136-145 (test code = 381) POTASSIUM (BEAKER) 4.4 meq/L 3.5-5.1 Specimen slightly (test code = 379) hemolyzed CHLORIDE (BEAKER) 110 meq/L 98-107 H (test code = 382) CO2 (BEAKER) (test 21 meq/L 22-29 L code = 355) BLOOD UREA NITROGEN 8 mg/dL 7-21 (BEAKER) (test code = 354) CREATININE (BEAKER) 0.65 mg/dL 0.57-1.25 Specimen slightly (test code = 358) hemolyzed GLUCOSE RANDOM 85 mg/dL 70-105 (BEAKER) (test code = 652) CALCIUM (BEAKER) 9.0 mg/dL 8.4-10.2 (test code = 697) EGFR (BEAKER) (test 123 INSUFFIC IENT CLINICAL code = 1092) mL/min/1.73 sq DATA TO CALCU LATE m ESTIMATED GFR. LIPID [id number] 07:26:00 Test Item Value Reference Range Interpretation Comments TRIGLYCERIDES (BEAKER) 102 mg/dL Speci men slightly (test code = 540) hemolyzed CHOLESTEROL (BEAKER) 181 mg/dL Specime n slightly (test code = 631) hemolyzed HDL CHOLESTEROL (BEAKER) 30 mg/dL (test code = 976) LDL CHOLESTEROL 131 mg/dL CALCULATED (BEAKER) (test code = 633) Triglyceride Reference Range: Low Risk <150 Borderline 150-199 High Risk 200-499 Very High Risk >=500Cholesterol Reference Range: Low Risk <200 Borderline 200-239 High Risk >240HDL Cholesterol Reference Range: Low Risk >=60 High Risk <40LDL Cholesterol Reference Range: Optimal <100 Near Optimal 100-129 Borderline 130-159 High 160-189 Very High [id number] 07:25:00 Test Item Value Reference Range Interpretation Comments PHOSPHORUS (BEAKER) (test code = 3.8 mg/dL 2.3-4.7 604) [id number] 07:25:00 Test Item Value Reference Range Interpretation Comments MAGNESIUM (BEAKER) (test code = 2.0 mg/dL 1.6-2.6 627) URINALYSIS W/ [id number] 19:16:00 Test Item Value Reference Range Interpretation Comments COLOR (BEAKER) (test code = Light Yellow 470) CLARITY (BEAKER) (test code = Clear 469) SPECIFIC GRAVITY UA (BEAKER) 1.007 1.001-1.035 (test code = 468) PH UA (BEAKER) (test code = 6.5 5.0-8.0 467) PROTEIN UA (BEAKER) (test code Negative Negative = 464) GLUCOSE UA (BEAKER) (test code Negative Negative = 365) KETONES UA (BEAKER) (test code Negative Negative = 371) BILIRUBIN UA (BEAKER) (test Negative Negative code = 462) BLOOD UA (BEAKER) (test code = Negative Negative 461) NITRITE UA (BEAKER) (test code Negative Negative = 465) LEUKOCYTE ESTERASE UA (BEAKER) Negative Negative (test code = 466) UROBILINOGEN UA (BEAKER) (test 0.2 mg/dL 0.2-1.0 code = 463) RBC UA (BEAKER) (test code = 1 /HPF 519) WBC UA (BEAKER) (test code = < /HPF 520) SOURCE(BEAKER) (test code = Urine, Voided 7071) BLOOD [id number] 11:00:00 Test Item Value Reference Range Interpretation Comments CULTURE (BEAKER) (test No growth in 5 days code = 1095) BLOOD [id number] 11:00:00 Test Item Value Reference Range Interpretation Comments CULTURE (BEAKER) (test No growth in 5 days code = 1095) BASIC METABOLIC [id number] 05:33:00 Test Item Value Reference Range Interpretation Comments SODIUM (BEAKER) 137 meq/L 136-145 (test code = 381) POTASSIUM (BEAKER) 4.6 meq/L 3.5-5.1 (test code = 379) CHLORIDE (BEAKER) 104 meq/L 98-107 (test code = 382) CO2 (BEAKER) (test 22 meq/L 22-29 code = 355) BLOOD UREA NITROGEN 4 mg/dL 7-21 L (BEAKER) (test code = 354) CREATININE (BEAKER) 0.61 mg/dL 0.57-1.25 (test code = 358) GLUCOSE RANDOM 84 mg/dL 70-105 (BEAKER) (test code = 652) CALCIUM (BEAKER) 9.1 mg/dL 8.4-10.2 (test code = 697) EGFR (BEAKER) (test 132 INSUFFIC IENT CLINICAL code = 1092) mL/min/1.73 sq DATA TO CALCU LATE m ESTIMATED GFR. CBC W/PLT COUNT & AUTO [id number] 05:04:00 Test Item Value Reference Range Interpretation Comments WHITE BLOOD CELL COUNT (BEAKER) 9.4 K/ L 4.0-10.0 (test code = 775) RED BLOOD CELL COUNT (BEAKER) 4.10 M/ L 4.20-5.80 L (test code = 761) HEMOGLOBIN (BEAKER) (test code = 13.8 GM/DL 13.0-16.8 410) HEMATOCRIT (BEAKER) (test code = 40.7 % 40.0-50.0 411) MEAN CORPUSCULAR VOLUME (BEAKER) 99.3 fL 82.0-98.0 H (test code = 753) MEAN CORPUSCULAR HEMOGLOBIN 33.7 pg 27.0-33.0 H (BEAKER) (test code = 751) MEAN CORPUSCULAR HEMOGLOBIN CONC 33.9 GM/DL 32.0-36.0 (BEAKER) (test code = 752) RED CELL DISTRIBUTION WIDTH 13.7 % 10.3-14.2 (BEAKER) (test code = 412) PLATELET COUNT (BEAKER) (test 224 K/CU MM 150-430 code = 756) MEAN PLATELET VOLUME (BEAKER) 7.4 fL 6.5-10.5 (test code = 754) NUCLEATED RED BLOOD CELLS 0 /100 WBC 0-0 (BEAKER) (test code = 413) NEUTROPHILS RELATIVE PERCENT 69 % (BEAKER) (test code = 429) LYMPHOCYTES RELATIVE PERCENT 18 % (BEAKER) (test code = 430) MONOCYTES RELATIVE PERCENT 12 % (BEAKER) (test code = 431) EOSINOPHILS RELATIVE PERCENT 1 % (BEAKER) (test code = 432) BASOPHILS RELATIVE PERCENT 0 % (BEAKER) (test code = 437) NEUTROPHILS ABSOLUTE COUNT 6.44 K/ L 1.80-8.00 (BEAKER) (test code = 670) LYMPHOCYTES ABSOLUTE COUNT 1.69 K/ L 1.48-4.50 (BEAKER) (test code = 414) MONOCYTES ABSOLUTE COUNT (BEAKER) 1.16 K/ L 0.00-1.30 (test code = 415) EOSINOPHILS ABSOLUTE COUNT 0.05 K/ L 0.00-0.50 (BEAKER) (test code = 416) BASOPHILS ABSOLUTE COUNT (BEAKER) 0.04 K/ L 0.00-0.20 (test code = 417) 0.00VANCOMYCIN LEVEL, [id number] 21:36:00 Test Item Value Reference Range Interpretation Comments VANCOMYCIN TROUGH (BEAKER) (test 9.5 ug/mL 10.0-20.0 L code = 522) Please draw prior to 4th vancomycin doseVITAMIN B12 AND [id number] 04:33:00 Test Item Value Reference Range Interpretation Comments VITAMIN B12 (BEAKER) (test code = 599 pg/mL 213-816 774) FOLATE (BEAKER) (test code = 362) 7.7 ng/mL >=7.0 Effective 03/02/2014: Folate Reference Range ChangeNew: >=7.0 Previous: >=5.4HEPATIC FUNCTION [id number] 03:58:00 Test Item Value Reference Range Interpretation Comments TOTAL PROTEIN (BEAKER) (test code = 6.7 gm/dL 6.0-8.3 770) ALBUMIN (BEAKER) (test code = 1145) 3.3 g/dL 3.5-5.0 L BILIRUBIN TOTAL (BEAKER) (test code 0.4 mg/dL 0.2-1.2 = 377) BILIRUBIN DIRECT (BEAKER) (test 0.2 mg/dL 0.1-0.5 code = 706) ALKALINE PHOSPHATASE (BEAKER) (test 67 U/L 40-150 code = 346) AST (SGOT) (BEAKER) (test code = 10 U/L 5-34 353) ALT (SGPT) (BEAKER) (test code = 12 U/L 6-55 347) BASIC METABOLIC [id number] 03:58:00 Test Item Value Reference Range Interpretation Comments SODIUM (BEAKER) 139 meq/L 136-145 (test code = 381) POTASSIUM (BEAKER) 4.0 meq/L 3.5-5.1 (test code = 379) CHLORIDE (BEAKER) 103 meq/L 98-107 (test code = 382) CO2 (BEAKER) (test 24 meq/L 22-29 code = 355) BLOOD UREA NITROGEN 7 mg/dL 7-21 (BEAKER) (test code = 354) CREATININE (BEAKER) 0.58 mg/dL 0.57-1.25 (test code = 358) GLUCOSE RANDOM 87 mg/dL 70-105 (BEAKER) (test code = 652) CALCIUM (BEAKER) 9.3 mg/dL 8.4-10.2 (test code = 697) EGFR (BEAKER) (test 140 INSUFFIC IENT CLINICAL code = 1092) mL/min/1.73 sq DATA TO CALCU LATE m ESTIMATED GFR. CBC W/PLT COUNT & AUTO [id number] 03:45:00 Test Item Value Reference Range Interpretation Comments WHITE BLOOD CELL COUNT (BEAKER) 7.5 K/ L 4.0-10.0 (test code = 775) RED BLOOD CELL COUNT (BEAKER) 3.88 M/ L 4.20-5.80 L (test code = 761) HEMOGLOBIN (BEAKER) (test code = 13.5 GM/DL 13.0-16.8 410) HEMATOCRIT (BEAKER) (test code = 38.4 % 40.0-50.0 L 411) MEAN CORPUSCULAR VOLUME (BEAKER) 99.0 fL 82.0-98.0 H (test code = 753) MEAN CORPUSCULAR HEMOGLOBIN 34.8 pg 27.0-33.0 H (BEAKER) (test code = 751) MEAN CORPUSCULAR HEMOGLOBIN CONC 35.1 GM/DL 32.0-36.0 (BEAKER) (test code = 752) RED CELL DISTRIBUTION WIDTH 13.1 % 10.3-14.2 (BEAKER) (test code = 412) PLATELET COUNT (BEAKER) (test 204 K/CU MM 150-430 code = 756) MEAN PLATELET VOLUME (BEAKER) 7.7 fL 6.5-10.5 (test code = 754) NUCLEATED RED BLOOD CELLS 0 /100 WBC 0-0 (BEAKER) (test code = 413) NEUTROPHILS RELATIVE PERCENT 54 % (BEAKER) (test code = 429) LYMPHOCYTES RELATIVE PERCENT 30 % (BEAKER) (test code = 430) MONOCYTES RELATIVE PERCENT 14 % (BEAKER) (test code = 431) EOSINOPHILS RELATIVE PERCENT 2 % (BEAKER) (test code = 432) BASOPHILS RELATIVE PERCENT 0 % (BEAKER) (test code = 437) NEUTROPHILS ABSOLUTE COUNT 4.09 K/ L 1.80-8.00 (BEAKER) (test code = 670) LYMPHOCYTES ABSOLUTE COUNT 2.23 K/ L 1.48-4.50 (BEAKER) (test code = 414) MONOCYTES ABSOLUTE COUNT (BEAKER) 1.05 K/ L 0.00-1.30 (test code = 415) EOSINOPHILS ABSOLUTE COUNT 0.13 K/ L 0.00-0.50 (BEAKER) (test code = 416) BASOPHILS ABSOLUTE COUNT (BEAKER) 0.03 K/ L 0.00-0.20 (test code = 417) [id number] 03:18:00 Test Item Value Reference Range Interpretation Comments PARTIAL THROMBOPLASTIN TIME 42.6 seconds 22.5-36.0 H (BEAKER) (test code = 760) PROTHROMBIN TIME/[id number] 03:17:00 Test Item Value Reference Range Interpretation Comments PROTIME (BEAKER) (test code = 13.0 seconds 11.7-14.7 759) INR (BEAKER) (test code = 370) 1.0 <=5.9 RECOMMENDED COUMADIN/WARFARIN INR THERAPY RANGESSTANDARD DOSE: 2.0 - 3.0 Includes: PROPHYLAXIS forvenous thrombosis, systemic embolization; TREATMENT for venous thrombosis and/or pulmonary embolus.HIGH RISK: Target INR is 2.5-3.5 for patients with mechanical heart valves.BASIC METABOLIC [id number] 02:48:00 Test Item Value Reference Range Interpretation Comments SODIUM (BEAKER) 136 meq/L 136-145 (test code = 381) POTASSIUM (BEAKER) 4.2 meq/L 3.5-5.1 (test code = 379) CHLORIDE (BEAKER) 101 meq/L 98-107 (test code = 382) CO2 (BEAKER) (test 22 meq/L 22-29 code = 355) BLOOD UREA NITROGEN 7 mg/dL 7-21 (BEAKER) (test code = 354) CREATININE (BEAKER) 0.66 mg/dL 0.57-1.25 (test code = 358) GLUCOSE RANDOM 86 mg/dL 70-105 (BEAKER) (test code = 652) CALCIUM (BEAKER) 10.1 mg/dL 8.4-10.2 (test code = 697) EGFR (BEAKER) (test 120 INSUFFIC IENT CLINICAL code = 1092) mL/min/1.73 sq DATA TO CALCU LATE m ESTIMATED GFR. CBC W/PLT COUNT & AUTO [id number] 02:47:00 Test Item Value Reference Range Interpretation Comments WHITE BLOOD CELL COUNT (BEAKER) 13.9 K/ L 4.0-10.0 H (test code = 775) RED BLOOD CELL COUNT (BEAKER) 4.54 M/ L 4.20-5.80 (test code = 761) HEMOGLOBIN (BEAKER) (test code = 15.2 GM/DL 13.0-16.8 410) HEMATOCRIT (BEAKER) (test code = 45.1 % 40.0-50.0 411) MEAN CORPUSCULAR VOLUME (BEAKER) 99.4 fL 82.0-98.0 H (test code = 753) MEAN CORPUSCULAR HEMOGLOBIN 33.4 pg 27.0-33.0 H (BEAKER) (test code = 751) MEAN CORPUSCULAR HEMOGLOBIN CONC 33.6 GM/DL 32.0-36.0 (BEAKER) (test code = 752) RED CELL DISTRIBUTION WIDTH 13.2 % 10.3-14.2 (BEAKER) (test code = 412) PLATELET COUNT (BEAKER) (test 230 K/CU MM 150-430 code = 756) MEAN PLATELET VOLUME (BEAKER) 8.1 fL 6.5-10.5 (test code = 754) NUCLEATED RED BLOOD CELLS 0 /100 WBC 0-0 (BEAKER) (test code = 413) NEUTROPHILS RELATIVE PERCENT 71 % (BEAKER) (test code = 429) LYMPHOCYTES RELATIVE PERCENT 16 % (BEAKER) (test code = 430) MONOCYTES RELATIVE PERCENT 12 % (BEAKER) (test code = 431) EOSINOPHILS RELATIVE PERCENT 0 % (BEAKER) (test code = 432) BASOPHILS RELATIVE PERCENT 0 % (BEAKER) (test code = 437) NEUTROPHILS ABSOLUTE COUNT 9.86 K/ L 1.80-8.00 H (BEAKER) (test code = 670) LYMPHOCYTES ABSOLUTE COUNT 2.22 K/ L 1.48-4.50 (BEAKER) (test code = 414) MONOCYTES ABSOLUTE COUNT (BEAKER) 1.72 K/ L 0.00-1.30 H (test code = 415) EOSINOPHILS ABSOLUTE COUNT 0.04 K/ L 0.00-0.50 (BEAKER) (test code = 416) BASOPHILS ABSOLUTE COUNT (BEAKER) 0.02 K/ L 0.00-0.20 (test code = 417) 0.99OVPJSCASD4507-28-52 09:18:0014.0[facility] XwevjvyODMYSEZRQ2577-65-21 09:18:00 110[facility] WrtbmswEJKKIFGFE3564-46-18 09:18:0026[facility]annCHEMISTRY 2011-09-29 09:18:009.1[facility] WlxoxeaXFJGGHYSI9541-14-79 09:18:24479Houqhbig VzprkgzDKTJXVDCL4285-03-27 09:18:004.0[facility] KdbesflFUIKIAWPJ7806-22-19 09:18:0011[facility] XlucoelLDXPBXMYC1778-18-47 09:18:00168Rstpeznm Miguel JLROXVMME8519-15-58 09:18:000.7[facility] XgaxsxhHSNFDXWGXD5703-39-69 09:18:0013.6 [facility] SwzipjpHVBKOUDSON3605-35-30 09:18:0098.9[facility]annHEMATOLOGY 2011-09-29 09:18:0038.8[facility] PlaxkzzNODRGHTHWB0888-99-18 09:18:009.7[facility] RbmtorlQEYKLIQCYB3460-69-58 09:18:53485Vbfaahwf WgrhtbdFNUTCKTIQJ5543-27-01 09:18:0034.5[facility] JupsqumSBBGRZMVVM1333-25-55 09:18:00 Test Item Value Reference Range Interpretation Comments MCH (test code = MCH) 34.2 pg 27.0-31.0 H [facility] EcyihskQCSGNWHUNI1011-26-68 09:18:0013.4[facility] HermannHEMATOLOGY 2011-09-29 09:18:005.8[facility] VcahbkbQZWGAKERXO9007-04-66 09:18:003.92[facility] AugwznnEGSVNPBCSW0612-62-94 09:18:000.8[facility] AhnhnmpFTVGXJTKRF9080-36-57 09:18:002.4[facility] MlgprbaQUHARQIRMY1052-19-04 09:18:000.0[facility] ROKXXOICNX0733-98-06 09:18:000.2[facility] SvzqhgwZIZTGHPWEP9099-31-76 09:18:00 41.3[facility] TrcocrtNLMQRIADST0904-66-99 09:18:0041.0[facility]annHEMATOLOGY 2011-09-29 09:18:003.9[facility] RqpnpcfIIZKYROGZH1511-86-77 09:18:002.4[facility] FueouwrZTEHEFNMXN3104-47-47 09:18:000.3[facility] PxkqqemHXRFTEALOI1984-14-40 09:18:0013.5[facility] HermannBEDSIDE GLUCOSE TOUVWNX0644-15-97 21:40:94735 [facility] YmnpsekEYKNNKIAY2029-91-35 10:14:0030[facility]annCHEMISTRY 2011-09-25 10:14:009.0[facility] SjjlmvkXIJEHUVVZ2486-47-01 10:14:0086[facility] LqwmtctFQGHCYCRY1592-53-61 10:14:004.4[facility] ZucvalnLTTBCGMFV9636-82-13 10:14:58443Owroqeul KtoidhuMNOETAWJE4480-09-98 10:14:0013[facility] HDDNCJMNX9710-80-53 10:14:000.7[facility] ClmeouvTTFDCWDLU0793-68-62 10:14:48323 [facility] OrdypnaCTQYSUZFN4783-39-57 10:14:0011.4[facility]annHEMATOLOGY 2011-09-25 10:14:000.5[facility] KlqbqrhYGXGVCCEME9778-23-97 10:14:003.1[facility] XkhxhcgWQNNIJRWQT7190-29-37 10:14:003.1[facility] TrecpuoPTKCMMGBLR9434-24-63 10:14:002.3[facility] LbrjwpwIERNVQBNEI9265-65-90 10:14:000.9[facility] LVQQYZATCJ7855-69-24 10:14:0048.3[facility] RkhhwzmQSVWLFALGM9581-71-64 10:14:00 34.9[facility] SuxbiqtDBJRQRMMKV9077-98-41 10:14:001+ *ABN*(09/25/2011 05:14:00) [facility] QxwytumYRVVZIYSSS1920-18-49 10:14:000.2[facility]annHEMATOLOGY 2011-09-25 10:14:0013.2[facility] NatpbzpPQWHZIFPVH5244-05-85 10:14:000.0[facility] OqigogwHMLOAGNMIL8652-11-23 10:14:009.1[facility] NdvnojhQLLYUIHQAI5964-82-12 10:14:52570Aijawpwb WccsullFFKNXXKJJC0361-25-72 10:14:0014.3[facility] Miguel KKOHILXKZY2126-10-44 10:14:0034.1[facility] JxituldSIPHLRYUUF6091-84-49 10:14:00 42.1[facility] YwzrvbgAEHUONYSQV1833-78-17 10:14:0014.4[facility]annHEMATOLOGY 2011-09-25 10:14:006.4[facility] QyncdxqIIJKAIBOWD7341-38-22 10:14:0099.3[facility] XalhlloMQVDNGJGEA8017-33-68 10:14:004.24[facility] UpuhcizACVBIKJPCS3672-12-71 10:14:00 Test Item Value Reference Range Interpretation Comments MCH (test code = MCH) 33.9 pg 27.0-31.0 H [facility] MjydelbKKBRNRCSC6752-89-26 09:04:0095[facility]annCHEMISTRY 2011-09-18 09:04:009[facility] GxpbwzxZXYHGWTIV1879-05-08 09:04:000.6[facility] EayhlcxEAZTEMOXS7165-67-29 09:04:24892Tpilachw BrrnwroTRUTSCWRQ0047-77-00 09:04:004.1[facility] QshuuxzFFZZTLJKS5115-59-41 09:04:40933Akpajbns Miguel XGRZAOEWO1194-84-11 09:04:0025[facility] CxmqpdvHAQCHPTKS4816-99-50 09:04:009.0 [facility] UbfenrhRGWWLZDSL5443-49-90 09:04:0013.1[facility]annHEMATOLOGY 2011-09-18 09:04:001+ *ABN*(09/18/2011 04:04:00)[facility]annHEMATOLOGY 2011-09-18 09:04:000.9[facility] DsajeqsXYFVVMCCXP2966-17-19 09:04:002.1[facility] ExpnqgxIGAWZMGVKU0611-10-96 09:04:0054.6[facility] IjwbhtwAFCGALOOYE1483-36-00 09:04:000.2[facility] KumscrvHYUCRTNULM9649-79-99 09:04:002.3[facility] NSUFGECPDV2273-46-13 09:04:0012.9[facility] SocfvxwNGMUROMDPM6028-81-39 09:04:00 29.9[facility] RjbxkxjSDMZBUHZUH7723-25-32 09:04:000.3[facility]annHEMATOLOGY 2011-09-18 09:04:000.0[facility] QybwswjPKSRPGMLSM4239-58-37 09:04:003.8[facility] GcukogxABGZNQIXJA4209-43-47 09:04:0043.5[facility] PvdbxgpGEDVCMNZHS8752-69-31 09:04:0099.4[facility] MuaxgkpCDHPUERTQL0584-52-07 09:04:0014.8[facility] Miguel XJNQFTDYWE2726-79-17 09:04:004.37[facility] XpzqlgiBQYWUPCLOE4502-09-81 09:04:00 6.9[facility] NmdhcqqVSQKAGNRKU7161-90-11 09:04:87482Bruyunzl HermannHEMATOLOGY 2011-09-18 09:04:0034.2[facility] JxczlqvEURKZKTOQJ6602-27-17 09:04:009.1[facility] ZfudvhaUSJHIAICIV9999-76-66 09:04:0013.9[facility] QfmcrkoXAZKEBKFQM1800-14-74 09:04:00 Test Item Value Reference Range Interpretation Comments MCH (test code = MCH) 33.9 pg 27.0-31.0 H [facility] VumqgnqRVXDAIECZM6704-53-22 13:25:00<1[facility] HermannURINALYSIS 2011-09-16 13:25:001[facility] UqbhamvDVAMQLUFMA4329-57-81 13:25:00Few /LPF *NA*(09/16/2011 08:25:00)[facility] HsspxokEGMFQQZZEK6975-81-71 13:25:00Negative mg/dL *NA*(09/16/2011 08:25:00)[facility] XpjpfmuDBQCNTVAIF0941-46-79 13:25:00 Negative *NA*(09/16/2011 08:25:00)[facility] SjpnzptUCOONFBDDL9479-94-02 13:25:00 Negative (09/16/2011 08:25:00)[facility] XalfhllWBMLQDXPWL1949-95-38 13:25:00 Negative (09/16/2011 08:25:00)[facility] PfccgwnZYAXGDHKDY4643-44-05 13:25:00 Negative (09/16/2011 08:25:00)[facility] IsmjntzYBSOQDVQLR5149-58-43 13:25:00 Occasional /LPF *NA*(09/16/2011 08:25:00)[facility] PxhhlkuNRGLVUTEDK5786-52-02 13:25:00Negative mg/dL *NA*(09/16/2011 08:25:00)[facility]annURINALYSIS 2011-09-16 13:25:00Negative mg/dL (09/16/2011 08:25:00)[facility] IOBOEJTVFQ4898-94-41 13:25:00Yellow *NA*(09/16/2011 08:25:00)[facility] SXOEALOFUW7489-74-74 13:25:005.5[facility] PwtspqqOJETTMBOSD2434-03-54 13:25:00 1.017[facility] CilqtqqBLZEVVIPUH7278-97-80 13:25:00Clear (09/16/2011 08:25:00) [facility] PinrmmfBLHNPMLMIK9611-48-55 08:42:00Few /LPF *NA*(09/15/2011 03:42:00) [facility] NpfkjiwBTXEGSKXAM8812-09-98 08:42:001[facility]annURINALYSIS 2011-09-15 08:42:00Negative (09/15/2011 03:42:00)[facility]annURINALYSIS 2011-09-15 08:42:00Negative (09/15/2011 03:42:00)[facility]annURINALYSIS 2011-09-15 08:42:00Negative (09/15/2011 03:42:00)[facility]annURINALYSIS 2011-09-15 08:42:005.5[facility] XsgrxzoKDPCEHXPAV3624-49-12 08:42:00Negative mg/dL (09/15/2011 03:42:00)[facility] TsbyfoxXGYBAJOTLS0627-39-01 08:42:00Negative mg/dL *NA*(09/15/2011 03:42:00)[facility] ScvrftmNXADHWUBNV5816-60-13 08:42:00 Negative mg/dL *NA*(09/15/2011 03:42:00)[facility] FrmpybzVNKPBKYTPJ4387-76-97 08:42:00Negative *NA*(09/15/2011 03:42:00)[facility] RmrttklUDSIIWTMQB1909-95-79 08:42:00Yellow *NA*(09/15/2011 03:42:00)[facility] XfzhmmrBMQYZRDWNE7691-29-60 08:42:00Slight *ABN*(09/15/2011 03:42:00)[facility] VadteakPJKWRBYUAC4731-90-69 08:42:001.012[facility] VrixswdDYKSFUEUN7822-29-91 08:40:003.390[facility] ZWDOPGUPS4655-25-78 08:40:008.5[facility] AotyzpjOSFMQIHCN9939-35-66 08:40:0033 [facility] ObyjuxySJLKQXJZV4201-57-99 08:40:003.390[facility] HermannCHEMISTRY 2011-09-15 08:40:006.4[facility] KuhdtyiMHYNBKPLN1212-10-98 08:40:0014[facility] ZdxostiENBGCMMJZ8342-58-19 08:40:000.4[facility] ZcalinkEBFRYOMEG3933-39-32 08:40:0024[facility] MccrufwCIUSCKYKA3157-87-32 08:40:0081[facility] JBXSVSYXF0607-98-08 08:40:003.3[facility] AvcrueiJUWOCDDCL6625-12-66 08:40:001.1 [facility] YxlusejDPYSUJTXI3534-74-40 08:40:0014[facility]annCHEMISTRY 2011-09-15 08:40:003.1[facility] UgscntaCOGUFGZAH7831-31-28 08:40:002.8[facility]ckAzuywucCADXTIRCCI6412-56-01 08:40:00 Test Item Value Reference Range Interpretation Comments PTT (test code = PTT) 32.4 s 22.9-35.8 [facility]IQ[facility]TOM0577-69-38 08:40:00 Test Item Value Reference Range Interpretation Comments PT (test code = PT) 13.0 s 12.0-14.7 [facility]AxkvovgYIKDLJBWNM0645-13-27 08:40:000.98[facility]
--- NOTE | 2019-11-24 14:46 | RAD REPORT ---
EXAM DESCRIPTION: RAD - Chest Single View - 11/24/2019 2:32 pm CLINICAL HISTORY: COUGH Chest pain. COMPARISON: Chest Single View dated 03/20/2019; Chest Single View dated 10/20/2018; Chest Single View d ated 03/02/2018; Chest Pa And Lat (2 Views) dated 05/06/2017 FINDINGS: Portable technique limits examination quality. Mild interstitial pulmonary edema seen. Small calcified granuloma is present right lung base laterall y. The heart is mildly enlarged in size with changes of a prior CABG. No displaced fractures. IMPRESSION: Mild CHF.
--- NOTE | 2019-11-24 14:48 | RAD REPORT ---
EXAM DESCRIPTION: CT - Head Brain Wo Cont - 11/24/2019 2:41 pm CLINICAL HISTORY: HEADACHE Headache, drowsiness, seizure COMPARISON: Head Brain Wo Cont dated 04/29/2019; Head Brain Wo Cont dated 10/20/2018 TECHNIQUE: All CT scans are performed using dose optimization technique as appropriate and may inclu de automated exposure control or mA/KV adjustment according to patient size. FINDINGS: No intracranial hemorrhage, hydrocephalus or extra-axial fluid collection.Mild generalized brain atrophy is present with mild periventricular and deep white matter chronic microvascular ische veronica changes.No areas of brain edema or evidence of midline shift. The paranasal sinuses and mastoids are clear. The calvarium is intact. IMPRESSION: No acute intracranial abnormality.
[2019-11-24 14:49] LABS: Absolute Lymphocytes (CBC) 0.9 K/uL (0.7-4.9); Basophils % 0.5 % (0-1.3); Lymphocytes % 11.6 % (15.3-44.8); MPV 9.8 fL (7.6-11.3); RBC Red Blood Cell Count 4.51 M/uL (4.33-5.43)
[2019-11-24] MEDS ORDERED: ONDANSETRON 4 MG/2 ML VIAL ONE (14:54)
[2019-11-24 15:09] LABS: ALT/SGPT 12 U/L (12-78); AST/SGOT 11 U/L (15-37); Albumin 3.1 g/dL (3.4-5.0); Alkaline Phosphatase 59 U/L (45-117); BUN Blood Urea Nitrogen 13 mg/dL (7-18); Bicarbonate 25 mmol/L (21-32); Bilirubin Total 0.2 mg/dL (0.2-1.0); Glucose Level 123 mg/dL (74-106); Potassium 4.3 mmol/L (3.5-5.1); Protein, Total 7.4 g/dL (6.4-8.2); Sodium Level 145 mmol/L (136-145)
--- NOTE | 2019-11-24 16:07 | ER ---
Nurse's Notes [facility] Name: Bryan Graf Age: 69 yrs Sex: Male : 1950 Arrival Date: 11/24/2019 Time: 13:55 Bed 7 Private MD: Diagnosis: Headache Presentation: 11/23 13:55 Chief complaint: EMS states: EMS toned out for seizure, family reports that the pt was ph able to speak throughout seizure-like activity, pt c/o headache x 2-3 days, reports hx of headaches but states that this is the worst,. also reports nausea and sensitivity to light and sound, VSS, BP 120s/70s, HR 70's, no fever, cough or SOB. Coronavirus screen: headache, nausea, Client presents with at least one sign or symptom that may indicate coronavirus-19. Standard/surgical mask placed on the client. Ebola Screen: No symptoms or risks identified at this time. Initial Sepsis Screen: Does the patient meet any 2 criteria? No. Patient's initial sepsis screen is negative. Does the patient have a suspected source of infection? No. Patient's initial sepsis screen is negative. Risk Assessment: Do you want to hurt yourself or someone else? Patient reports no desire to harm self or others. Onset of symptoms was November 24, 2019. 13:55 Method Of Arrival: EMS: [facility] 13:55 Acuity: GELACIO 3 ph 14:01 Care prior to arrival: IV initiated. 18 GA, in the right forearm. ph Historical: - Allergies: 14:03 Aspirin; ph 14:03 PENICILLINS; ph - Home Meds: 14:03 acetaminophen 325 mg Oral tab as needed [Active]; Depakote 500 mg Oral TbEC 1 tab 2 ph times per day [Active]; Keppra 1,000 mg Oral tab 1 tab every 12 hours [Active]; oxycodone 30 mg Oral tab three times a day [Active]; - PMHx: 14:03 Chronic pain; CVA; Hypertension; Pneumonia; Seizures; swelling and pain to L lower leg; ph - PSHx: 14:03 Heart stents; ph - Immunization history:: Adult Immunizations unknown. - Social history:: Smoking status: Patient reports the use of cigarette tobacco products, smokes one pack cigarettes per day. Screenin:00 Abuse screen: Denies threats or abuse. Denies injuries from another. Nutritional ph screening: No deficits noted. Tuberculosis screening: No symptoms or risk factors identified. Fall Risk Fall in past 12 months (25 points). Secondary diagnosis (15 points) seizures, IV access (20 points). Ambulatory Aid- None/Bed Rest/Nurse Assist (0 pts). Gait- Weak (10 pts.). Mental Status- Oriented to own ability (0 pts). Total Thacker Fall Scale indicates High Risk Score (45 or more points). Fall prevention measures have been instituted. Side Rails Up X 2 Placed Close to Nursing Station Frequent Obs/Assessments Occuring As available patient and family educated on Fall Prevention Program and Strategies. Assessment: 14:22 General: Appears in no apparent distress. uncomfortable, slender, Behavior is calm, ph cooperative, appropriate for age, quiet, Denies fever. Pain: Complains of pain in forehead and right shinto. Neuro: Level of Consciousness is awake, obeys commands, Oriented to person, place, time, situation, Reports headache in right parietal area, frontal area, photophobia. Cardiovascular: Capillary refill < 3 seconds in bilateral fingers Patient's skin is warm and dry. Respiratory: Airway is patent Respiratory effort is even, unlabored. Derm: Skin is intact, Skin is pink, warm \T\ dry. Musculoskeletal: Circulation, motion, and sensation intact. Range of motion: intact in all extremities. 15:30 Reassessment: Patient appears in no apparent distress at this time. Patient and/or ph family updated on plan of care and expected duration. Pain level reassessed. Patient is alert, oriented x 3, equal unlabored respirations, skin warm/dry/pink. Pt continues to c/o headache, ERP notified. 16:21 Reassessment: Patient appears in no apparent distress at this time. Patient and/or ph family updated on plan of care and expected duration. Pain level reassessed. Patient is alert, oriented x 3, equal unlabored respirations, skin warm/dry/pink. D/C pending completion of IV meds, see MAR. 17:05 Reassessment: Patient appears in no apparent distress at this time. Patient and/or ph family updated on plan of care and expected duration. Pain level reassessed. Patient is alert, oriented x 3, equal unlabored respirations, skin warm/dry/pink. Pt reports that headache has improved, d/c home w/ SO. Vital Signs: 13:55 BP 123 / 76; Pulse 88; Resp 18; Temp 97.9; Pulse Ox 94% on R/A; ph 15:27 BP 120 / 73; Pulse 86; Resp 18; Pulse Ox 98% on R/A; ph 16:22 BP 125 / 73; Pulse 75; Resp 16; Pulse Ox 97% on R/A; em 17:00 BP 118 / 72; Pulse 71; Resp 18; Temp 97.9; Pulse Ox 99% on R/A; ph ED Course: 13:55 Patient arrived in ED. ph 13:56 Fam Traore MD is Attending Physician. ps1 14:00 Triage completed. ph 14:01 Patient has correct armband on for positive identification. Bed in low position. Call ph light in reach. Side rails up X2. hall monitor on. Pulse ox on. NIBP on. Door closed. Noise minimized. Lights dimmed. Warm blanket given. 14:03 Arm band placed on Patient placed in an exam room, on a stretcher. ph 14:06 Keerthi Crum RN is Primary Nurse. ph 14:23 Maintain EMS IV. Dressing intact. Site clean \T\ dry. Gauge \T\ site: 18 RFA. ph 17:05 No provider procedures requiring assistance completed. IV discontinued, intact, ph bleeding controlled, No redness/swelling at site. Pressure dressing applied. Administered Medications: 14:21 Drug: Tylenol 650 mg Route: PO; ph 15:00 Follow up: Response: No adverse reaction; Pain is unchanged, physician notified ph 14:48 Drug: Zofran (Ondansetron) 4 mg Route: IVP; Site: right forearm; ph 19:15 Follow up: Response: No adverse reaction; Nausea is decreased ph 16:20 Drug: Benadryl 12.5 mg Route: IVP; Site: right forearm; ph 17:00 Follow up: Response: No adverse reaction ph 16:21 Drug: Reglan 10 mg {Note: mixed in 50 cc bag NS.} Route: IVP; Site: right forearm; ph 17:00 Follow up: Response: No adverse reaction; Pain is decreased ph Outcome: 16:07 Discharge ordered by . ps1 17:10 Discharged to home via wheelchair, with family. ss 17:10 Condition: good 17:10 Discharge instructions given to patient, Instructed on discharge instructions, follow up and referral plans. Demonstrated understanding of instructions, follow-up care. 17:12 Patient left the ED. ll1 Signatures: Tristan Ragland, RN Cheli Ferrer RN RN Keerthi Crum RN RN ph Singer, Phillip, MD MD ps1 Lewis, Lynsay, RN RN ll1
--- NOTE | 2019-11-24 16:08 | EDPHYS ---
Physician Documentation [facility] Name: Bryan Graf Age: 69 yrs Sex: Male : 1950 Arrival Date: 11/24/2019 Time: 13:55 Bed 7 Private MD: ED Physician Fam Traore HPI: 11/23 14:05 This 69 yrs old Male presents to ER via EMS with complaints of Headache > ps1 24hrs Old. 14:05 States that he has had a headache for over a week. Hx of seizure. No signs of seizure ps1 activity or tongue biting. Family thought he might have had a seizure but he was talking to them during the episode reportedly per RN. Pt brought in by EMS for evaluation. Patient states he has a persistent headache. No nausea or vomiting. . Historical: - Allergies: 14:03 Aspirin; ph 14:03 PENICILLINS; ph - Home Meds: 14:03 acetaminophen 325 mg Oral tab as needed [Active]; Depakote 500 mg Oral TbEC 1 tab 2 ph times per day [Active]; Keppra 1,000 mg Oral tab 1 tab every 12 hours [Active]; oxycodone 30 mg Oral tab three times a day [Active]; - PMHx: 14:03 Chronic pain; CVA; Hypertension; Pneumonia; Seizures; swelling and pain to L lower leg; ph - PSHx: 14:03 Heart stents; ph - Immunization history:: Adult Immunizations unknown. - Social history:: Smoking status: Patient reports the use of cigarette tobacco products, smokes one pack cigarettes per day. ROS: 14:05 Constitutional: Negative for fever, chills, and weight loss, Cardiovascular: Negative ps1 for chest pain, palpitations, and edema, Respiratory: Negative for shortness of breath, cough, wheezing, and pleuritic chest pain, Abdomen/GI: Negative for abdominal pain, nausea, vomiting, diarrhea, and constipation, Skin: Negative for injury, rash, and discoloration. 14:05 Neuro: Positive for headache. Exam: 14:05 Constitutional: This is a well developed, well nourished patient who is awake, alert, ps1 and in no acute distress. Head/Face: Normocephalic, atraumatic. Eyes: Pupils equal round and reactive to light, extra-ocular motions intact. Lids and lashes normal. Conjunctiva and sclera are non-icteric and not injected. Cardiovascular: Regular rate and rhythm. No gallops, murmurs, or rubs. Normal PMI, no JVD. No pulse deficits. Respiratory: Lungs have equal breath sounds bilaterally, clear to auscultation and percussion. No rales, rhonchi or wheezes noted. No increased work of breathing, no retractions or nasal flaring. Abdomen/GI: Soft, non-tender, with normal bowel sounds. No distension or tympany. No guarding or rebound. No evidence of tenderness throughout. Skin: Warm, dry with normal turgor. Normal color with no rashes, no lesions, and no evidence of cellulitis. Neuro: Awake and alert, GCS 15, oriented to person, place, time, and situation. Cranial nerves II-XII grossly intact. Sensory grossly intact. 14:05 Musculoskeletal/extremity: Extremities: all appear grossly normal, with no appreciated pain with palpation. Vital Signs: 13:55 BP 123 / 76; Pulse 88; Resp 18; Temp 97.9; Pulse Ox 94% on R/A; ph 15:27 BP 120 / 73; Pulse 86; Resp 18; Pulse Ox 98% on R/A; ph 16:22 BP 125 / 73; Pulse 75; Resp 16; Pulse Ox 97% on R/A; em 17:00 BP 118 / 72; Pulse 71; Resp 18; Temp 97.9; Pulse Ox 99% on R/A; ph MDM: 14:09 Patient medically screened. ps1 16:09 Data reviewed: vital signs, nurses notes, lab test result(s), EKG, radiologic studies, ps1 and as a result, I will discharge patient. Counseling: I had a detailed discussion with the patient and/or guardian regarding: the historical points, exam findings, and any diagnostic results supporting the discharge/admit diagnosis, lab results, radiology results, the need for outpatient follow up, to return to the emergency department if symptoms worsen or persist or if there are any questions or concerns that arise at home. 11/23 14:05 Order name: CBC with Diff ps1 11/23 14:05 Order name: CMP ps1 11/23 15:10 Order name: Comprehensive Metabolic Panel; Complete Time: 15:28 EDMS 11/23 15:10 Order name: CBC with Automated Diff EDMS 11/23 15:41 Order name: Urine Dipstick--Ancillary (enter results) bd 11/23 16:37 Order name: CBC Smear Scan EDNC 11/23 14:05 Order name: CT Head Brain wo Cont ps1 11/23 14:05 Order name: CXR XRAY [facility] 11/23 14:47 Order name: RAD; Complete Time: 15:28 EDNC 11/23 14:49 Order name: CT; Complete Time: 15:28 [facility] 11/23 17:09 Order name: Urine Dipstick-Ancillary EDNC 11/23 14:05 Order name: Urine Dipstick-Ancillary (obtain specimen); Complete Time: 16:01 ps1 11/23 14:05 Order name: EKG - Nurse/Tech; Complete Time: 16:01 ps1 EC:05 Rate is 73 beats/min. Rhythm is regular. QRS [place] is Normal. [place] interval is normal. QRS ps1 interval is normal. QT interval is normal. No Q waves. T waves are Normal. No ST changes noted. Clinical impression: Normal ECG. Administered Medications: 14:21 Drug: Tylenol 650 mg Route: PO; ph 15:00 Follow up: Response: No adverse reaction; Pain is unchanged, physician notified ph 14:48 Drug: Zofran (Ondansetron) 4 mg Route: IVP; Site: right forearm; ph 19:15 Follow up: Response: No adverse reaction; Nausea is decreased ph 16:20 Drug: Benadryl 12.5 mg Route: IVP; Site: right forearm; ph 17:00 Follow up: Response: No adverse reaction ph 16:21 Drug: Reglan 10 mg {Note: mixed in 50 cc bag NS.} Route: IVP; Site: right forearm; ph 17:00 Follow up: Response: No adverse reaction; Pain is decreased ph Disposition: 11/24/19 16:07 Discharged to Home. Impression: Headache. - Condition is Stable. - Discharge Instructions: General Headache Without Cause. - Medication Reconciliation Form, Thank You Letter, Antibiotic Education, Prescription Opioid Use form. - Follow up: Private Physician; When: 48 Hours; Reason: Further diagnostic work-up, Recheck today's complaints, Continuance of care, Re-evaluation by your physician. Follow up: Emergency Department; When: As needed; Reason: Fever > 102 F, Trouble breathing, Worsening of condition. - Problem is an ongoing problem. - Symptoms are unchanged. Signatures: Dispatcher [employer] EDKeerthi Roy, RN RN ph Fam Traore MD MD ps1 Carmen Zuniga RN RN ll1 Corrections: (The following items were deleted from the chart) 17:12 16:07 11/24/2019 16:07 Discharged to Home. Impression: Headache. Condition is Stable. ll1 Forms are Medication Reconciliation Form, Thank You Letter, Antibiotic Education, Prescription Opioid Use. Follow up: Private Physician; When: 48 Hours; Reason: Further diagnostic work-up, Recheck today's complaints, Continuance of care, Re-evaluation by your physician. Follow up: Emergency Department; When: As needed; Reason: Fever > 102 F, Trouble breathing, Worsening of condition. Problem is an ongoing problem. Symptoms are unchanged. ps1
[2019-11-24] MEDS ORDERED: METOCLOPRAMIDE 10 MG/2mL INJ ONE (16:24)
[2019-11-24] MEDS ORDERED: DIPHENHYDRAMINE 50 MG/ML VIAL ONE (16:25)
[2019-11-24] MEDS ORDERED: NA CHLORIDE 0.9% 50 ML IV ONE (16:25)
[2019-11-24 16:37] LABS: Blood Morphology Comment NOT SEEN (NOT SEEN); Platelet Estimate ADEQ; Urine White Blood Cell Casts OK
[2019-11-24 17:09] LABS: Urine Blood TRACE (NEG); Urine Glucose NEGATIVE (NEG); Urine Protein NEGATIVE (NEG)
[2019-11-24 17:43] VITALS: TEMP 97.9
[2019-11-24 17:45] VITALS: BP 125/73; O2SAT 97
== END 2019-11-24 17:12 | disposition home or self-care (01) ==
LOC: ER 13:54
DX: R51 Headache (principal); I10 Essential (primary) hypertension; G40.909 Epilepsy, unspecified, not intractable, without status epilepticus; F17.210 Nicotine dependence, cigarettes, uncomplicated; Z88.0 Allergy status to penicillin; Z88.6 Allergy status to analgesic agent; Z86.73 Personal history of transient ischemic attack (TIA), and cerebral infarction without residual deficits; Z95.818 Presence of other cardiac implants and grafts
CPT/HCPCS: 85025; 36415; 81003; 80053; 70450; 71045; J2765; J1200; J2405; 93005; 96374; 96375; 99284

== ENCOUNTER 2020-01-21 11:05 | Observation (INO) | payer OTHER ==
[2020-01-21 11:51] LABS: Absolute Lymphocytes (CBC) 1.9 K/uL (0.7-4.9); Basophils % 0.7 % (0-1.3); Hematocrit 43.3 % (39.6-49.0); Lymphocytes % 31.5 % (15.3-44.8); MPV 9.2 fL (7.6-11.3); RBC Red Blood Cell Count 4.44 M/uL (4.33-5.43)
--- NOTE | 2020-01-21 11:53 | RAD REPORT ---
EXAM DESCRIPTION: CT - Chest For Pe Angio - 01/21/2020 11:39 am CLINICAL HISTORY: CHEST PAIN , right-side COMPARISON: Thorax W/ Con dated 11/25/2016 TECHNIQUE: Dynamically enhanced 3 mm thick images of the chest were obtained during administration o f approximately 150mL Isovue 370 IV contrast. Coronal and oblique MIP reconstruction images were gene rated and reviewed. Exam utilizes a protocol to evaluate the pulmonary arterial tree. All CT scans are performed using dose optimization technique as appropriate and may include automated exposure control or mA/KV adjustment according to patient size. FINDINGS: No pulmonary emboli are identified. The aorta as imaged shows no acute or suspicious finding. No pericardial thickening or effusion. No focal mass or consolidation. Interstitial markings are accentuated by respiratory motion. Trace am ounts of atelectasis present. No pleural effusion or pleural thickening. No mediastinal or hilar suspicious masses. No chest wall masses or abnormal axillary lymphadenopathy. Left hemidiaphragm elevation is new from prior imaging. Granulomatous calcifications are present. IMPRESSION: No pulmonary emboli identified. No focal mass or consolidation. Interstitial markings are accentuated by respiratory motion artifact. This could mask early interstitial edema or infiltrate.
[2020-01-21 11:54] LABS: Protime INR 1.02
[2020-01-21 11:58] LABS: BUN Blood Urea Nitrogen 17 mg/dL (7-18); Bicarbonate 27 mmol/L (21-32); Glucose Level 93 mg/dL (74-106); Potassium 4.4 mmol/L (3.5-5.1); Sodium Level 143 mmol/L (136-145); Troponin (Emerg Dept Use Only) < 0.02 ng/mL (0.0-0.045)
[2020-01-21] MEDS ORDERED: MORPHINE 2 MG/ML SYR ONE ×2 (11:59→14:50)
[2020-01-21] MEDS ORDERED: ONDANSETRON 4 MG/2 ML VIAL ONE (11:59)
--- NOTE | 2020-01-21 12:18 | RAD REPORT ---
EXAM DESCRIPTION: RAD - Chest Single View - 01/21/2020 11:59 am CLINICAL HISTORY: CHEST PAIN, right-side COMPARISON: November 23 portable TECHNIQUE: AP portable chest image was obtained 01/21/2020 11:59 am . FINDINGS: Chronic interstitial opacification is present not clearly different from comparison. Sever ity of baseline disease can mask early for infiltrate. Granulomatous calcifications are present. No n ew consolidation. Heart and vasculature are normal. No measurable pleural effusion and no pneumothora x. No acute bony abnormality seen. No acute aortic findings suspected. IMPRESSION: Chronic interstitial lung disease is present not substantially different from comparison . Severity of disease can mask early edema or infiltrate.
[2020-01-21] MEDS ORDERED: HYDROCODONE/APAP 10/325 TAB ONE (12:23)
[2020-01-21] MEDS ORDERED: ACETAMINOPHEN 500 MG TAB PO PRN (13:27)
--- NOTE | 2020-01-21 13:29 | EDPHYS ---
Physician Documentation [facility] Name: Bryan Graf Age: 69 yrs Sex: Male : 1950 Arrival Date: 01/21/2020 Time: 11:08 Bed 13 Private MD: ED Physician Roe Yang HPI: 01/20 11:59 This 69 yrs old Male presents to ER via Wheelchair with complaints of chest rn pain. 11:59 The patient or guardian reports chest pain that is located primarily in the anterior rn chest wall, right. Onset: 3 week(s) ago. The pain does not radiate. Associated signs and symptoms: Pertinent positives: shortness of breath, Pertinent negatives: cough, diaphoresis, syncope. The chest pain is described as sharp, stabbing. Duration: The patient or guardian reports multiple episodes, that are intermittent. Modifying factors: The symptoms are alleviated by nothing. the symptoms are aggravated by deep breath, palpation of area. Severity of pain: At its worst the pain was moderate in the emergency department the pain is unchanged. The patient has not experienced similar symptoms in the past. Sent over by Dr. Hidalgo for chest pain, several weeks, right anterior chest pain, worse with palpation and deep breath. No trauma. Doesn't feel ill. No cough. . Historical: - Allergies: 11:08 Aspirin; aa5 11:08 PENICILLINS; aa5 - Home Meds: 12:00 acetaminophen 325 mg Oral tab as needed [Active]; Depakote 500 mg Oral TbEC 1 tab 2 aa5 times per day [Active]; Keppra 1,000 mg Oral tab 1 tab every 12 hours [Active]; oxycodone 30 mg Oral tab three times a day [Active]; - PMHx: 11:08 Chronic pain; CVA; Hypertension; Pneumonia; Seizures; swelling and pain to L lower leg; aa5 - PSHx: 11:08 Heart stents; CABG; aa5 - Immunization history:: Adult Immunizations up to date, Pneumococcal vaccine is up to date, Flu vaccine is not up to date. - Family history:: not pertinent. - Social history:: Smoking status: Patient reports the use of cigarette tobacco products, smokes one pack cigarettes per day. - Hospitalizations: : No recent hospitalization is reported. ROS: 12:00 Constitutional: Negative for fever, chills, and weight loss, Eyes: Negative for injury, rn pain, redness, and discharge, Neck: Negative for injury, pain, and swelling, Cardiovascular: Negative for palpitations, and edema, Respiratory: Negative for cough, wheezing, and pleuritic chest pain, Abdomen/GI: Negative for abdominal pain, nausea, vomiting, diarrhea, and constipation, MS/Extremity: Negative for injury and deformity, Skin: Negative for injury, rash, and discoloration, Neuro: Negative for headache, weakness, numbness, tingling, and seizure. Exam: 12:00 Constitutional: This is a well developed, well nourished patient who is awake, alert, rn and in no acute distress. Head/Face: Normocephalic, atraumatic. Chest/axilla: Reproducible right anterior chest tenderness without overlying skin changes. Cardiovascular: Regular rate and rhythm. No pulse deficits. Respiratory: No increased work of breathing, no retractions or nasal flaring. Abdomen/GI: soft, non-tender Skin: Warm, dry MS/ Extremity: Pulses equal, no cyanosis. Neuro: Awake and alert, GCS 15 12:08 ECG was reviewed by the Attending Physician. rn Vital Signs: 11:08 BP 133 / 73; Pulse 67; Resp 18 S; Temp 98.3(TE); Pulse Ox 96% on R/A; aa5 11:25 BP 137 / 73; Pulse 67; Resp 16 S; Pulse Ox 96% on R/A; aa5 11:45 BP 143 / 68; Pulse 60; Resp 16 S; Pulse Ox 98% on R/A; Pain 8/10; aa5 12:10 BP 130 / 70; Pulse 57; Resp 18 S; Pulse Ox 96% on R/A; aa5 13:00 BP 115 / 66; Pulse 55; Resp 18 S; Pulse Ox 96% on R/A; ca1 14:25 BP 127 / 68; Pulse 55; Resp 15 S; Pulse Ox 95% on R/A; ca1 15:25 BP 139 / 75; Pulse 55; Resp 15 S; Pulse Ox 95% on R/A; ca1 16:08 BP 140 / 72; Pulse 56; Resp 15 S; Pulse Ox 94% on R/A; ca1 MDM: 11:09 Patient medically screened. rn 13:27 Differential diagnosis: acute myocardial infarction, coronary artery disease chest wall rn pain, congestive heart failure costochondritis, pleurisy, pneumothorax, pulmonary embolus, stable angina. Data reviewed: vital signs, nurses notes, lab test result(s), EKG, radiologic studies, CT scan, plain films, and as a result, I will admit patient. Counseling: I had a detailed discussion with the patient and/or guardian regarding: the historical points, exam findings, and any diagnostic results supporting the discharge/admit diagnosis, lab results, radiology results, the need for further work-up and treatment in the hospital. Response to treatment: the patient's symptoms have mildly improved after treatment, and as a result, I will admit patient. Admission orders: after a detailed discussion of the patient's condition and case, the admit orders are written by me. ED course: Discussed case with zoey Blevins patient admitted for stress test, admitted to Dr. Osuna. . 01/20 11:10 Order name: CBC with Diff; Complete Time: 12: rn 01/20 11:10 Order name: Basic Metabolic Panel; Complete Time: 12: rn 01/20 11:10 Order name: Troponin (emerg Dept Use Only); Complete Time: 12: rn 01/20 11:12 Order name: PT-INR; Complete Time: 12: rn 01/20 11:12 Order name: Ptt, Activated; Complete Time: 12: rn 01/20 13:32 Order name: Basic Metabolic Panel [facility] 01/20 13:32 Order name: Basic Metabolic Panel [facility] 01/20 13:32 Order name: CBC with Automated Diff [facility] 01/20 13:32 Order name: CBC with Automated Diff [facility] 01/20 13:32 Order name: Lipid Profile [facility] 01/20 13:32 Order name: Lipid Profile [facility] 01/20 13:32 Order name: Troponin I [facility] 01/20 13:32 Order name: Troponin I [facility] 01/20 13:32 Order name: Troponin I [facility] 01/20 11:10 Order name: IV Start; Complete Time: 11:30 rn 01/20 11:10 Order name: EKG; Complete Time: 11:11 rn 01/20 11:10 Order name: EKG - Nurse/Tech; Complete Time: 11:30 rn 01/20 11:10 Order name: XRAY Chest (1 view); Complete Time: 12:45 rn 01/20 11:12 Order name: CT Chest For PE Angio; Complete Time: 12:07 rn 01/20 13:31 Order name: Echo with Doppler ED[facility] 01/20 13:32 Order name: EKG Electrocardiogram [facility] 01/20 13:32 Order name: EKG Electrocardiogram [facility] 01/20 14:29 Order name: CREATININE WHOLE BLOOD; Complete Time: 14:36 EDMS EC:08 Rate is 67 beats/min. Rhythm is regular. Left axis deviation noted. QRS is positive in rn lead I and negative in lead aVF. [place] interval is normal. QRS interval is normal. QT interval is normal. No Q waves. T waves are Normal. No ST changes noted. 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 Interpreted by me. Reviewed by me. Administered Medications: 11:48 Drug: morphine 2 mg Route: IVP; Site: right forearm; aa5 12:10 Follow up: Response: No adverse reaction aa5 11:48 Drug: Zofran (Ondansetron) 4 mg Route: IVP; Site: right forearm; aa5 12:10 Follow up: Response: No adverse reaction aa5 12:13 Drug: Spencer 10 mg-325 mg 1 tabs Route: PO; iw 13:36 Follow up: Response: No adverse reaction; Pain is decreased; RASS: Alert and Calm (0) ca1 14:41 Drug: morphine 2 mg {Note: rass 0.} Route: IVP; Site: right forearm; ca1 15:27 Follow up: Response: No adverse reaction; Pain is decreased; RASS: Alert and Calm (0) ca1 Disposition: 01/21/20 13:29 Hospitalization ordered by Sena Osuna for Observation. Preliminary diagnosis is Chest pain, unspecified. - Bed requested for Telemetry/MedSurg (observation). - Status is Observation. ca1 - Condition is Stable. - Problem is an ongoing problem. - Symptoms have improved. Signatures: Dispatcher [employer] EDMS Argenis Mcgraw RN RN dw Williams, Irene, RN RN Roe Yang MD MD rn Calderon, Audri, RN RN aa5 Paula Torres RN RN ca1 Corrections: (The following items were deleted from the chart) 12:00 11:59 Sent over by cardiology. rn rn 12:02 12:00 Constitutional: This is a well developed, well nourished patient who is awake, rn alert, and in no acute distress. Head/Face: Normocephalic, atraumatic. Cardiovascular: Regular rate and rhythm. No pulse deficits. Respiratory: No increased work of breathing, no retractions or nasal flaring. Abdomen/GI: soft, non-tender Skin: Warm, dry MS/ Extremity: Pulses equal, no cyanosis. Neuro: Awake and alert, GCS 15 rn 15:48 13:29 Hospitalization Ordered by Sena Osuna MD for Observation. Preliminary iw diagnosis is Chest pain, unspecified. Bed requested for Telemetry/MedSurg (observation). Status is Observation. Condition is Stable. Problem is an ongoing problem. Symptoms have improved. rn 15:48 15:48 01/21/2020 13:29 Hospitalization Ordered by Sena Osuna MD for Observation. dw Preliminary diagnosis is Chest pain, unspecified. Bed requested for Telemetry/MedSurg (observation). Status is Observation. Condition is Stable. Problem is an ongoing problem. Symptoms have improved. iw 16:36 15:48 01/21/2020 13:29 Hospitalization Ordered by Sena Osuna MD for Observation. ca1 Preliminary diagnosis is Chest pain, unspecified. Bed requested for Telemetry/MedSurg (observation). Status is Observation. Condition is Stable. Problem is an ongoing problem. Symptoms have improved. dw
--- NOTE | 2020-01-21 13:29 | ER ---
Nurse's Notes [facility] Name: Bryan Graf Age: 69 yrs Sex: Male : 1950 Arrival Date: 01/21/2020 Time: 11:08 Bed 13 Private MD: Diagnosis: Chest pain, unspecified Presentation: 01/20 11:08 Chief complaint: Patient states: right-sided chest pain that is intermittent and began aa5 approximately 3 weeks ago. Pt denies known injury, denies SOB, denies cough, denies fever. Pt was sent by broomcorn sorter. 11:08 Coronavirus screen: Client denies travel out of the [place] in the last 14 days. At this aa5 time, the client does not indicate any symptoms associated with coronavirus-19. Ebola Screen: Patient negative for fever greater than or equal to 101.5 degrees Fahrenheit, and additional compatible Ebola Virus Disease symptoms. Initial Sepsis Screen: Does the patient meet any 2 criteria? No. Patient's initial sepsis screen is negative. Does the patient have a suspected source of infection? No. Patient's initial sepsis screen is negative. Risk Assessment: Do you want to hurt yourself or someone else? Patient reports no desire to harm self or others. Onset of symptoms was 2019. 11:08 Acuity: GELACIO 3 aa5 11:08 Method Of Arrival: Wheelchair aa5 Historical: - Allergies: 11:08 Aspirin; aa5 11:08 PENICILLINS; aa5 - Home Meds: 12:00 acetaminophen 325 mg Oral tab as needed [Active]; Depakote 500 mg Oral TbEC 1 tab 2 aa5 times per day [Active]; Keppra 1,000 mg Oral tab 1 tab every 12 hours [Active]; oxycodone 30 mg Oral tab three times a day [Active]; - PMHx: 11:08 Chronic pain; CVA; Hypertension; Pneumonia; Seizures; swelling and pain to L lower leg; aa5 - PSHx: 11:08 Heart stents; CABG; aa5 - Immunization history:: Adult Immunizations up to date, Pneumococcal vaccine is up to date, Flu vaccine is not up to date. - Family history:: not pertinent. - Social history:: Smoking status: Patient reports the use of cigarette tobacco products, smokes one pack cigarettes per day. - Hospitalizations: : No recent hospitalization is reported. Screenin:27 Abuse screen: Denies threats or abuse. Nutritional screening: No deficits noted. aa5 Tuberculosis screening: No symptoms or risk factors identified. Fall Risk Secondary diagnosis (15 points) CVA, IV access (20 points). Ambulatory Aid- Crutches/Cane/Walker (15 pts). Total Thacker Fall Scale indicates High Risk Score (45 or more points). Fall prevention measures have been instituted. Side Rails Up X 2 Placed Close to Nursing Station. Assessment: 11:08 General: Appears uncomfortable, Behavior is calm, cooperative. Pain: Complains of pain aa5 in anterior aspect of right upper chest Pain does not radiate. Quality of pain is described as aching, sharp, tender, Pain began 3 weeks ago Is intermittent, Aggravated by increased activity, repositioning, touch. Neuro: Level of Consciousness is awake, alert, obeys commands, Oriented to person, place, time, situation. Cardiovascular: Heart tones S1 S2 present Rhythm is regular. Respiratory: Airway is patent Respiratory effort is even, unlabored, Respiratory pattern is regular, symmetrical. GI: Abdomen is round Patient currently denies nausea. : No signs and/or symptoms were reported regarding the genitourinary system. EENT: No signs and/or symptoms were reported regarding the EENT system. Derm: Skin is pink, warm \\T\\ dry. Musculoskeletal: Range of motion: intact in all extremities. 11:44 Reassessment: Patient is alert, oriented x 3, equal unlabored respirations, skin aa5 warm/dry/pink. Pt reports increased pain after CT scan, rates pain 8/10 on a pain scale. MD was notified. . General: Appears uncomfortable. 12:10 Reassessment: Patient is alert, oriented x 3, equal unlabored respirations, skin aa5 warm/dry/pink. Pt reports morphine only "helped a little bit but not much". MD was notified and norco ordered. Rates pain 7/10 on a pain scale. . 13:23 Reassessment: Patient appears in no apparent distress at this time. Patient and/or ca1 family updated on plan of care and expected duration. Pain level reassessed. Patient is alert, oriented x 3, equal unlabored respirations, skin warm/dry/pink. 14:30 Reassessment: Patient appears in no apparent distress at this time. Patient and/or ca1 family updated on plan of care and expected duration. Pain level reassessed. Patient is alert, oriented x 3, equal unlabored respirations, skin warm/dry/pink. Pending room assignment. 14:30 Reassessment: Pt c/o chest pain and pain on L armpit 9/10 on painscale. Notified ca1 provider. Med ordered. 15:24 Reassessment: Patient appears in no apparent distress at this time. Patient and/or ca1 family updated on plan of care and expected duration. Pain level reassessed. Patient is alert, oriented x 3, equal unlabored respirations, skin warm/dry/pink. Pending room assignment. 16:08 Reassessment: Patient appears in no apparent distress at this time. Patient is alert, ca1 oriented x 3, equal unlabored respirations, skin warm/dry/pink. Vital Signs: 11:08 BP 133 / 73; Pulse 67; Resp 18 S; Temp 98.3(TE); Pulse Ox 96% on R/A; aa5 11:25 BP 137 / 73; Pulse 67; Resp 16 S; Pulse Ox 96% on R/A; aa5 11:45 BP 143 / 68; Pulse 60; Resp 16 S; Pulse Ox 98% on R/A; Pain 8/10; aa5 12:10 BP 130 / 70; Pulse 57; Resp 18 S; Pulse Ox 96% on R/A; aa5 13:00 BP 115 / 66; Pulse 55; Resp 18 S; Pulse Ox 96% on R/A; ca1 14:25 BP 127 / 68; Pulse 55; Resp 15 S; Pulse Ox 95% on R/A; ca1 15:25 BP 139 / 75; Pulse 55; Resp 15 S; Pulse Ox 95% on R/A; ca1 16:08 BP 140 / 72; Pulse 56; Resp 15 S; Pulse Ox 94% on R/A; ca1 ED Course: 11:08 Patient arrived in ED. em1 11:08 Leilani Gamble, RN is Primary Nurse. aa5 11:08 Arm band placed on Patient placed in an exam room, on a stretcher. aa5 11:08 Patient has correct armband on for positive identification. Placed in gown. Bed in low aa5 position. Call light in reach. Side rails up X2. bus driver/monitor on. Pulse ox on. NIBP on. 11:09 Roe Yang MD is Attending Physician. rn 11:17 Initial lab(s) drawn, by me, sent to lab. Missed attempt(s): 20 gauge in right forearm. aa5 Bleeding controlled, band aid applied, catheter tip intact. 11:23 Missed attempt(s): 20 gauge in left antecubital area. Missed attempt by Dianelys Amado aaMateusz measurement technician . Bleeding controlled, band aid applied, catheter tip intact. 11:27 Inserted saline lock: 22 gauge in right forearm, using aseptic technique. aa5 11:27 Lab(s) recollected, by me, sent to lab. aa5 11:38 Triage completed. aa5 11:39 CT Chest For PE Angio In Process Unspecified. EDMS 12:00 XRAY Chest (1 view) In Process Unspecified. EDMS 13:23 Primary Nurse role handed off by Leilani Gamble RN ca1 13:23 Paula Torres RN is Primary Nurse. ca1 13:25 Report given to Paula Torres RN. aa5 13:28 Sena Osuna MD is Hospitalizing Provider. rn 13:33 No provider procedures requiring assistance completed. Patient admitted, IV remains in ca1 place. Administered Medications: 11:48 Drug: morphine 2 mg Route: IVP; Site: right forearm; aa5 12:10 Follow up: Response: No adverse reaction aa5 11:48 Drug: Zofran (Ondansetron) 4 mg Route: IVP; Site: right forearm; aa5 12:10 Follow up: Response: No adverse reaction aa5 12:13 Drug: [place] 10 mg-325 mg 1 tabs Route: PO; iw 13:36 Follow up: Response: No adverse reaction; Pain is decreased; RASS: Alert and Calm (0) ca1 14:41 Drug: morphine 2 mg {Note: rass 0.} Route: IVP; Site: right forearm; ca1 15:27 Follow up: Response: No adverse reaction; Pain is decreased; RASS: Alert and Calm (0) ca1 Outcome: 13:29 Decision to Hospitalize by Provider. rn 16:07 Admitted to Med/surg accompanied by tech, via stretcher, room 218, with chart, Report ca1 called to JOSEPH Sanchez 16:07 Condition: stable 16:07 Instructed on the need for admit. 16:36 Patient left the ED. ca1 Signatures: Dispatcher [employer] Zahra Beverly RN RN iw Nieto, Roman, MD MD rn Martinez, Eric em1 Leilani Gamble RN RN aa5 Paula Torres RN RN ca1 Corrections: (The following items were deleted from the chart) 13:24 13:23 BP 115 / 66; Pulse 55bpm; Resp 18bpm; Spontaneous; Pulse Ox 96% RA; ca1 ca1
[2020-01-21] MEDS: METOPROLOL TAR 25 MG TAB PO SCH ×2 (14:00→22:23)
[2020-01-21] MEDS: MORPHINE 4 MG/ML SYR IV PRN ×2 (17:37→22:20)
[2020-01-21 17:43] VITALS: O2SAT 94
[2020-01-21] MEDS ORDERED: ENOXAPARIN 100 MG/ML SYR SQ SCH (21:00)
[2020-01-21] MEDS: DIVALPROEX DR 500MG TAB PO SCH (22:23)
[2020-01-21] MEDS: levETIRAcetam 500 MG TAB PO SCH (22:23)
[2020-01-21] MEDS ORDERED: ENOXAPARIN 40 MG/0.4 ML SQ SCH (23:00)
--- OUTSIDE RECORDS SUMMARY | 2020-01-22 02:52 | XMS REPORT | Clinical Summary ---
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
--- OUTSIDE RECORDS SUMMARY | 2020-01-22 02:54 | XMS REPORT | Continuity of Care Document ---
:1950 Author Organization [facility] Care Team Providers Name Role Phone [facility] Unavailable Un available Problems Problem Status Onset Classification Date Comments Sourc e Date Reported CVA Active 09/13/19 [facility] Rehabilita tion Dysarthria Active Problem 10/03/2011 [facility] Weakness Active Problem 10/03/2011 [facility] CVA Active Rehabilita tion Medications Medication Details [...] mg, 1 tab, PO No De [facility] Route: PO, Drug Longer 012 Medical form: TAB, Active Center Bedtime, Start date: 09/21/11 21:00:00, Duration: 30 day, Stop date: 10/20/11 21:00:00 Percocet 5/325 1 tab, Route: PO, PO No De [facility] oral tablet Drug Form: TAB, Longer 012 Medi melissa BID-10-24, Start Active Center date: 09/21/11 9:11:00, Duration: 30 day, Stop date: 10/21/11 7:00:00 Plavix 75 mg, 1 tab, PO No [facility] Route: PO, Drug Longer 012 Medical form: TAB, Daily, Active Center Start date: 09/15/11 9:00:00, Duration: 30 day, Stop date: 10/14/11 9:00:00 Saline Flush 3 mL, Route: IVP, IVP Erika Zuniga [facility] Amparo 0.9% Drug Form: INJ, [...] 10/14/11 22:48:00 bisacodyl 10 mg, 1 supp, WA No [facility] [facility] Route: WA, Drug Longer 012 Medical form: SUPP, Active Center Bedtime, PRN Constipation, Start date: 09/14/11 22:49:00, Duration: 30 day, Stop date: 10/14/11 22:48:00 zolpidem 5 mg, 1 tab, PO No [facility] Route: PO, Drug Longer 012 Medical form: TAB, Active Center Bedtime, PRN Insomnia, Start date: 09/14/11 22:49:00, Duration: 30 day, Stop date: 10/14/11 22:48:00 Keppra 750 mg 750 mg, 3 tab, PO No [facility] oral tablet Route: PO, Drug Longer [...] 100 mg, 1 cap, PO No [facility] oral capsule Route: PO, Drug Longer [...] ource type Reported aspirin drug Allergy Active [facility] codeine drug Allergy Active [facility] penicillins drug Allergy Active [facility] Immunizations No Data Provided for This Section Results Order Name Results Value Reference Date Interpretation Comments [place] [facility] CHEMISTRY AGAP 14.0 10.0 - 09/28 Normal [place] 20.0 Medical Center CHEMISTRY Chloride Lvl 110 95 - 109 09/28 [facility] CHEMISTRY CO2 26 24 - 32 09/28 Normal [facility] CHEMISTRY Calcium Lvl 9.1 8.5 - 10.5 09/28 Normal [facility] CHEMISTRY Sodium Lvl 146 135 - 145 09/28 [facility] CHEMISTRY Potassium Lvl 4.0 3.5 - 5.1 09/28 Normal [facility] CHEMISTRY BUN 11 7 - 22 09/28 Normal Medical Center CHEMISTRY Glucose Lvl 107 70 - 99 09/28 HI <sup>2</sup>I T nterpretive Medical Data: Adult Center reference range values reflect the clinical guidelines of the [place] [employer]. CHEMISTRY Creatinine 0.7 0.5 - 1.4 09/28 Normal [facility] l /2011 Medical Center HEMATOLOGY RDW 13.6 11.5 - 09/28 Normal [facility] 14.5 Medical Center HEMATOLOGY MCV 98.9 80.0 - 09/28 [facility] [place] 94.0 Medical Center HEMATOLOGY Hct 38.8 42.0 - 09/28 LOW [place] 54.0 /2011 Medical Center HEMATOLOGY MPV 9.7 7.4 - 10.4 09/28 Normal Medical Center HEMATOLOGY Platelet 188 133 - 450 09/28 Normal Medical [place] HEMATOLOGY MCHC 34.5 32.0 - 09/28 Normal [place] 36.0 /2011 Medical Center HEMATOLOGY MCH 34.2 27.0 - 09/28 [facility] [place] 31.0 /2011 Medical Center HEMATOLOGY Hgb 13.4 14.0 - 09/28 LOW [place] 18.0 /2011 Medical Center HEMATOLOGY WBC 5.8 3.7 - 10.4 09/28 Normal [facility] HEMATOLOGY RBC 3.92 4.70 - 09/28 LOW [place] 6.10 Medical Center HEMATOLOGY Monocytes # 0.8 0.0 - 0.8 09/28 [facility] HEMATOLOGY Lymphocytes # 2.4 1.0 - 5.5 09/28 [place] [facility] HEMATOLOGY Basophils # 0.0 0.0 - 0.2 09/28 [place] [facility] HEMATOLOGY Eosinophils # 0.2 0.0 - 0.5 09/28 [place] [facility] HEMATOLOGY Lymphocytes 41.3 20.0 - 09/28 HI [place] 40.0 Medical Center HEMATOLOGY Segs 41.0 45.0 - 09/28 LOW [place] 75.0 [facility] Center HEMATOLOGY Eosinophils 3.9 0.0 - 4.0 09/28 Normal a [facility] HEMATOLOGY Segs-Bands # 2.4 1.5 - 8.1 09/28 Normal [facility] HEMATOLOGY Basophils 0.3 0.0 - 1.0 09/28 Normal [facility] HEMATOLOGY Monocytes 13.5 2.0 - 12.0 09/28 HI [facility] BEDSIDE Comment1 Notify 09/25 NA [facility] GLUCOSE RN/ Medical TESTING Center BEDSIDE Gluc POC 121 70 - 99 09/25 HI <sup>1</sup>I [facility] GLUCOSE Lifscn nterpretive Medical TESTING Data: Center Upper Reportable Limit: 200 mg/dL. CHEMISTRY CO2 30 24 - 32 09/24 Normal [facility] CHEMISTRY Calcium Lvl 9.0 8.5 - 10.5 09/24 Normal [facility] CHEMISTRY Glucose Lvl 86 70 - 99 09/24 Normal <sup>3</sup>I T ex nterpretive Medical Data: Adult Center reference range values reflect the clinical guidelines of the [place] [employer]. CHEMISTRY Potassium Lvl 4.4 3.5 - 5.1 09/24 Normal [place] [facility] CHEMISTRY Chloride Lvl 107 95 - 109 09/24 Normal [facility] CHEMISTRY BUN 13 7 - 22 09/24 Normal Medical Center CHEMISTRY Creatinine 0.7 0.5 - 1.4 09/24 Normal [place] L[facility] Medical Center CHEMISTRY Sodium Lvl 144 135 - 145 09/24 Normal [facility] CHEMISTRY AGAP 11.4 10.0 - 09/24 Normal [place] 20.0 [facility] [place] HEMATOLOGY Basophils 0.5 0.0 - 1.0 09/24 Normal Medical [place] HEMATOLOGY Eosinophils 3.1 0.0 - 4.0 09/24 Normal a [facility] HEMATOLOGY Segs-Bands # 3.1 1.5 - 8.1 09/24 Normal Medical [place] HEMATOLOGY Lymphocytes # 2.3 1.0 - 5.5 09/24 Normal [facility] HEMATOLOGY Monocytes # 0.9 0.0 - 0.8 09/24 HI a [facility] HEMATOLOGY Segs 48.3 45.0 - 09/24 Normal [place] 75.0 Medical [place] HEMATOLOGY Lymphocytes 34.9 20.0 - 09/24 Normal [place] 40.0 [facility] HEMATOLOGY Macrocyte 1+ None Seen 09/24 ABN *ABN* /2011 Medical (09/25/2011 05:14:00) Ce nter HEMATOLOGY Eosinophils # 0.2 0.0 - 0.5 09/24 Normal Te [facility] HEMATOLOGY Monocytes 13.2 2.0 - 12.0 09/24 HI [facility] HEMATOLOGY Basophils # 0.0 0.0 - 0.2 09/24 Normal [facility] HEMATOLOGY MPV 9.1 7.4 - 10.4 09/24 Normal [facility] [place] HEMATOLOGY Platelet 183 133 - 450 09/24 Normal Medical [place] HEMATOLOGY RDW 14.3 11.5 - 09/24 Normal [place] 14.5 [facility] [place] HEMATOLOGY MCHC 34.1 32.0 - 09/24 Normal [place] 36.0 [facility] [place] HEMATOLOGY Hct 42.1 42.0 - 09/24 Normal [place] 54.0 Medical [place] HEMATOLOGY Hgb 14.4 14.0 - 09/24 Normal [place] 18.0 Medical Center HEMATOLOGY WBC 6.4 3.7 - 10.4 09/24 Normal Medical Center HEMATOLOGY MCV 99.3 80.0 - 06/12 HI [place] 94.0 /2011 Medical Center HEMATOLOGY RBC 4.24 4.70 - 09/24 LOW [place] 6.10 /2011 Medical Center HEMATOLOGY MCH 33.9 27.0 - 09/24 [facility] [place] 31.0 /2011 Medical Center CHEMISTRY Glucose Lvl 95 70 - 99 09/17 Normal <sup>4</sup>I [place] /2011 nterpretive Medical Data: Adult Center reference range values reflect the clinical guidelines of the [place] [employer]. CHEMISTRY BUN 9 7 - 22 06 Normal [facility] Center CHEMISTRY Creatinine 0.6 0.5 - 1.4 [...] Lvl 9.0 8.5 - 10.5 09/17 Normal [facility] Center CHEMISTRY AGAP 13.1 10.0 - 09/17 Normal [place] 20.0 Medical Center HEMATOLOGY Macrocyte 1+ None Seen 09/17 [facility] [place] *ABN* /2011 Medical (09/18/2011 04:04:00) Ce nter HEMATOLOGY Monocytes # 0.9 0.0 - 0.8 09/17 [facility] [place] [facility] HEMATOLOGY Lymphocytes # 2.1 1.0 - 5.5 09/17 [place] [facility] HEMATOLOGY Segs 54.6 45.0 - 06/05 Normal [place] 75.0 Medical Center HEMATOLOGY Eosinophils # 0.2 0.0 - 0.5 09/17 [place] [facility] HEMATOLOGY Eosinophils 2.3 0.0 - 4.0 09/17 Normal [place] [facility] HEMATOLOGY Monocytes 12.9 2.0 - 12.0 09/17 [facility] HEMATOLOGY Lymphocytes 29.9 20.0 - 06/05 Normal [place] 40.0 Medical Center HEMATOLOGY Basophils 0.3 0.0 - 1.0 09/17 Normal Medical [facility] HEMATOLOGY Basophils # 0.0 0.0 - 0.2 / [place] [facility] [place] HEMATOLOGY Segs-Bands # 3.8 1.5 - 8.1 09/17 Normal [place] [facility] [place] HEMATOLOGY Hct 43.5 42.0 - 09/17 Normal [place] 54.0 /2011 [facility] HEMATOLOGY MCV 99.4 80.0 - / HI [place] 94.0 /2011 [facility] HEMATOLOGY Hgb 14.8 14.0 - 09/17 Normal [facility] 18.0 /2011 [facility] HEMATOLOGY RBC 4.37 4.70 - 06/ LOW [facility] 6.10 /2011 [facility] HEMATOLOGY WBC 6.9 3.7 - 10.4 09/17 Normal [facility] HEMATOLOGY Platelet 178 133 - 450 09/17 Normal [facility] HEMATOLOGY MCHC 34.2 32.0 - 09/17 Normal [facility] 36.0 /2011 [facility] HEMATOLOGY MPV 9.1 7.4 - 10.4 09/17 Normal [facility] HEMATOLOGY RDW 13.9 11.5 - 09/17 Normal [facility] 14.5 /2011 [facility] HEMATOLOGY MCH 33.9 27.0 - 05 HI [facility] 31.0 /2011 [facility] Microbiolog Culture: 09/15 [facility] y Urine /2011 [facility] URINALYSIS UA 0.1 - 1.0 09/15 NA [facility] Urobilinogen /2011 [facility] URINALYSIS UA WBC <1 0 - 5 09/15 Normal [facility] URINALYSIS UA RBC 1 0 - 2 09/15 Normal [facility] URINALYSIS UA Mucus Few /LPF None Seen 09/15 NA [facility] Medical (09/16/2011 08:25:00) Ce nter URINALYSIS UA Ketones Negative mg/dL Negative 09/15 NA [facility] * Medical (09/16/2011 08:25:00) Ce nter URINALYSIS UA Bili Negative Negative 09/15 NA [facility] * Medical (09/16/2011 08:25:00) Ce nter URINALYSIS UA Blood Negative Negative 09/15 Normal [facility] (09/16/2011 08:25:00) /2011 Mn [facility] Center URINALYSIS UA Nitrite Negative Negative 09/15 Normal [facility] (09/16/2011 08:25:00) Mn dical Center URINALYSIS UA Leuk Est Negative Negative 09/15 Normal [facility] (09/16/2011 08:25:00) Me dical Center URINALYSIS UA Sq Epi Occasional /LPF Few 09/15 NA [facility] Medical (09/16/2011 08:25:00) Ce nter URINALYSIS UA Glucose Negative mg/dL Negative 09/15 NA Medical (09/16/2011 08:25:00) Ce nter URINALYSIS UA Protein Negative mg/dL Negative 09/15 Normal [facility] (09/16/2011 08:25:00) Mn dical Center URINALYSIS UA Color Yellow Yellow 09/15 NA [facility] Medical (09/16/2011 08:25:00) Ce nter URINALYSIS UA pH 5.5 5.0 - 8.0 09/15 Normal Medical Center URINALYSIS UA Spec Grav 1.017 <=1.030 09/15 Normal Medical [facility] URINALYSIS UA Turbidity Clear Clear 09/15 Normal [facility] (09/16/2011 08:25:00) Mn dical Center URINALYSIS UA Mucus Few /LPF None Seen 09/14 NA [facility] Medical (09/15/2011 03:42:00) Ce nter URINALYSIS UA RBC 1 0 - 2 09/14 Normal Medical Center URINALYSIS UA Blood Negative Negative 09/14 Normal [facility] (09/15/2011 03:42:00) Me dical Center URINALYSIS UA Nitrite Negative Negative 09/14 Normal [facility] (09/15/2011 03:42:00) Me dical Center URINALYSIS UA Leuk Est Negative Negative 09/14 Normal [facility] [place] (09/15/2011 03:42:00) Me dical Center URINALYSIS UA pH 5.5 5.0 - 8.0 09/14 Normal Medical Center URINALYSIS UA Protein Negative mg/dL Negative 09/14 Normal [facility] (09/15/2011 03:42:00) Me dical Center URINALYSIS UA Glucose Negative mg/dL Negative 09[facility]14 [facility] 03:42:00) Ce nter URINALYSIS UA Ketones Negative mg/dL Negative [facility] 03:42:[facility] Ce nter URINALYSIS UA Bili Negative Negative 09/14 [facility] (09/15/2011 03:42:00) Ce nter URINALYSIS UA Color Yellow Yellow 09/14 [facility]09/15/2011 03:42:00) Ce nter URINALYSIS UA Turbidity Slight Clear 09/14 ABN ABN Medical (09/15/2011 03:42:00) Ce nter URINALYSIS UA Spec Grav 1.012 <=1.030 09/14 Normal [facility] URINALYSIS UA Sq Epi None Seen 09/14 [facility] URINALYSIS UA 0.1 - 1.0 09/14 NA [facility] Urobilinogen [facility] Microbiolog Culture: 09/14 [facility] y [facility] CHEMISTRY TSH 3.390 0.360 - 09/14 Normal [facility] 3. [facility] CHEMISTRY T4 8.5 4.7 - 13.3 09/14 Normal [facility] CHEMISTRY T3 Uptake 33 31 - 39 09/14 Normal [facility] CHEMISTRY TSH 3.390 0.360 - 09/14 Normal [facility] 3.74 [facility] CHEMISTRY Total Protein 6.4 6.4 - 8.4 09/14 Normal [facility] Medical [place] CHEMISTRY AST 14 0 - 37 09/14 Normal [facility] CHEMISTRY Bili Total 0.4 0.2 - 1.3 09/14 Normal [facility] CHEMISTRY ALT 24 0 - 65 09/14 Normal [facility] CHEMISTRY Alk Phos 81 39 - 136 09/14 Normal [facility] CHEMISTRY Albumin Lvl 3.3 3.5 - 5.0 09/14 LOW [facility] CHEMISTRY A/G Ratio 1.1 0.7 - 1.6 09/14 Normal [facility] CHEMISTRY B/C Ratio 14 6 - 25 09/14 Normal [facility] CHEMISTRY Globulin 3.1 2.0 - 4.0 06/ Normal [facility] CHEMISTRY FTI 2.8 06/ NA [facility] HEMATOLOGY PTT 32.4 22.9 - 06 Normal <sup>6</sup>I [place] 35.8 /2011 nterpretive Medical Data: [facility] Therapeutic Range: 57 - 92 Seconds HEMATOLOGY PT 13.0 12.0 - 06 Normal [facility] 14.7 [facility] HEMATOLOGY INR 0.98 0.85 - 06 Normal [...] Comments Source Systolic (mm Hg) 119 10/01/2011 [facility] Respitory Rate 20 10/01/2011 [facility] Heart Rate 53 10/01/2011 [facility] Temperature Oral (F) 97.6 F 10/01/2011 [facility] Diastolic (mm Hg) 66 10/01/2011 [facility] Diastolic (mm Hg) 76 10/01/2011 [facility] Respitory Rate 20 10/01/2011 [facility] Heart Rate 60 10/01/2011 [facility] Systolic (mm Hg) 125 10/01/2011 [facility] Temperature Oral (F) 98.1 F 10/01/2011 [facility] Systolic (mm Hg) 126 09/30/2011 [facility] Diastolic (mm Hg) 82 09/30/2011 [facility] Heart Rate 52 09/30/2011 [facility] Respitory Rate 18 09/30/2011 [facility] Temperature Oral (F) 97.8 F 09/30/2011 [facility] Height 172.72 cm 09/15/2011 [facility] Weight 76.364 09/15/2011 [facility] Encounters Location Location Encounter Encounter Reason Attending ADM DC Stat us Source Details Type Number For Provider Date Date Visit [id number] [place] 09/13 09/30 Discharge [facility] d Rehabilit ation Procedures No Data Provided [...]
--- OUTSIDE RECORDS SUMMARY | 2020-01-22 02:59 | XMS REPORT | Continuity of Care Document ---
:1950 Author Organization [facility] t Address [address] [place] [address] Care Team Providers Name Role Phone Botello, Rebecca Primary Care Physician MARCIAL NICHOLS Attending Clinician [...] [facility] - status status 00:00: [facility] 00 [place] Ptosis, Ptosis, Disease Active [facility] left left 8-25 [facility] - 00:00: Medical 00 [place] COPD COPD Disease Active [facility] (chronic (chronic [facility]-25 [facility] - obstructiv obstructiv 00:00: Me dical e e 00 Center pulmonary pulmonary [...] fibrillati 00:00: Me dical on on Center Pulmonary Pulmonary Disease Active [facility] embolism embolism 8-14 [facility] - 00:[facility]: Medical 00 [place] Left-sided Left-sided Disease Active [facility] [...] disorder 6-24 [facility] - 00:00: Medical 00 [place] History of History of Disease Active [facility] atrial atrial 6-24 [facility] - fibrillati fibrillati 00:00: Me dical on on Center Chronic Chronic Disease Active [facility] anticoagul anticoagul 6-24 Thao kes - ation ation 00:00: Medical 00 [place] Cellulitis Cellulitis Disease Active [facility] of of 3-19 [facility] - 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 00:00: 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 space of 00 Center mouth mouth Mandibular Mandibular Disease Active [facility] abscess abscess 3-18 [facility] - 00:00: Medical 00 [place] CVA Diagnosis Active 2011-09-21 Mem oria - 14:49:00 l CVA 06:00: Miguel 00 Active 09/13/2011 [facility] Dysarthria Problem Active 2011-10-03 M emoria 08:09:33 l Miguel Dysarthria Active Problem 10/03/2011 [facility] Weakness Problem Active 2011-10-03 Mem oria 08:09:33 l Weakness Richard n Active Problem 10/03/2011 [facility] CVA Diagnosis Active 2011-09-21 Mem oria 14:49:00 l CVA [place] Active Rehabilita tion Allergies, Adverse Reactions, Alerts Allergy Allergy Status Severity Reaction(s) Onset Inactive Treating Comm ents Source Name Type Date Date Clinician Aspirin Propensi Active Hives [facility] (Tartraz ty to 3-18 [facility] - ine adverse 00:00: Medical Only) reaction 00 Center s Aspirin Propensi Active Hives [facility] ty to 3-16 [facility] - adverse 00:00: Medical reaction 00 [place] s Penicill Propensi Active Hives, [facility] to Swelling 3-16 [facility] - adverse 00:00: Medical reaction 00 [place] s aspirin aspirin Active Memoria l [place] codeine codeine Active Memoria l Miguel penicill penicill Active Memori a ins ins l [place] Family History Family Member Diagnosis Comments Start Date Stop Date Source Natural mother Diabetes [facility] Social History Social Habit Start Date Stop Date Quantity Comments Source Sex Assigned [facility] Cigarettes smoked 2016-12-13 2016-12-13 [facility] - current (pack per 00:00:00 00:00:00 [facility] day) - Reported Smoking Status Start Date Stop Date Source Current every day smoker 2016-12-13 00:00:00 [facility] Medications Ordered Filled Start Stop Current [...] 6-16 PRN, as l 23:36: needed for [place] 23 pain, Substituti on Allowed, TAB Ambien 5 mg 2012-0 Yes Meilani H 5 mg, 1 Memoria oral tablet 6-15 [place] tab, PO, l 19:27: Bedtime, Miguel 59 30 tab, Substituti on Allowed, TAB Keppra 750 2011-0 Yes Meilani H 750 mg, 1 Memoria mg oral 6-15 [place] tab, PO, l tablet 19:27: Q12H, 60 Miguel 52 tab, Substituti on Allowed, TAB famotidine 2012-0 Yes Meilani H 20 mg, 1 Memoria 20 mg oral 6-15 [place] tab, PO, l tablet 19:27: BID, 60 [place] 44 tab, Substituti on Allowed, TAB Colace [...] 6-09 [place] Route: PO, l 02:00: Bedtime, [place] 00 Start date: 09/21/11 21:00:00, Duration: 30 day, Stop date: 10/20/11 21:00:00 Ambien 2011-0 No Marcial De 5 mg, 1 Me moria -09 [place] tab, l 02:00: Route: PO, [place] Drug form: TAB, Bedtime, Start date: 09/21/11 21:00:00, Duration: 30 day, Stop date: 10/20/11 21:00:00 Percocet 2011-0 No Marcial De 1 tab, M emoria 5/325 oral -08 [place] Route: PO, l tablet 14:11: Drug Form: Amira nn 00 TAB, BID-10-24, Start date: 09/21/11 9:11:00, Duration: 30 day, Stop date: 10/21/11 7:00:00 Plavix 2011- No Jeff 75 mg, 1 Memori a -02 Jef tab, l 14:00: Ef[place] Route: PO, [...] 09-14 Jef supp, l 03:49: [place] Route: NM, Richard n 00 Drug form: SUPP, Bedtime, PRN Constipati on, Start date: 09/14/11 22:49:00, Duration: 30 day, Stop date: 10/14/11 22:48:00 zolpidem No Marcial De 5 mg, 1 Memoria 09-14 [place] tab, l 03:49: Route: PO, [place] 00 Drug form: TAB, Bedtime, PRN Insomnia, [...] Jef mL, Route: l 20:00: [place] SUB-Q, [place] 00 Drug form: INJ, Q24H, Start date: [...] Miguel Respitory Rate 2011-10-01 10:34:00 Memori al [place] Heart Rate 2011-10-01 10:34:00 [facility] Temperature Oral (F) 2011-10-01 10:34:00 97.6 F [facility] Diastolic (mm Hg) 2011-10-01 10:34:00 Mem orial [place] Diastolic (mm Hg) 2011-10-01 00:44:00 Mem orial Miguel Respitory Rate 2011-10-01 00:44:00 Memori al [place] Heart Rate 2011-10-01 00:44:00 [facility] [place] Systolic (mm Hg) 2011-10-01 00:44:00 Luan rial Miguel Temperature Oral (F) 2011-10-01 00:44:00 98.1 F [facility] [place] Systolic (mm Hg) 2011-09-30 21:00:00 Luan rial Miguel Diastolic (mm Hg) 2011-09-30 21:00:00 Mem orial [place] Heart Rate 2011-09-30 21:00:00 [facility] Respitory Rate 2011-09-30 21:00:00 Sita al Miguel Temperature Oral (F) 2011-09-30 10:03:00 97.8 F [facility] Height 2011-09-15 03:49:00 172.72 cm [facility] Weight 2011-09-15 03:49:00 [facility] Procedures This patient has no known procedures. Results Test Description Test Time Test Comments Results Result Comments Source B-TYPE NATRIURETIC FACTOR (BNP) 2016-12-21 05:56:00 Test Item Value Reference Range Interpretation Comme nts B-TYPE NATRIURETIC PEPTIDE (BEAKER) (test code = 700) 136 pg/mL 0-100 H COMPREHENSIVE METABOLIC [id number] 05:53:00 Test Item Value Reference Range Interpretation [...] NOT APPLICABLE FOR DIALYSIS PATIEN TS. POCT-GLUCOSE [id number] 16:33:00 Test Item Value Reference Range Interpretation Comments POC-GLUCOSE METER 116 mg/dL 70-110 H TESTED AT [place] [address] ([facility]) (test code = TISHA Cazares [place] 15[address]) [address] POCT-GLUCOSE [id number] 11:08:00 Test Item Value Reference Range Interpretation Comments POC-GLUCOSE METER 133 mg/dL 70-110 H TESTED AT [place] [address] ([facility]) (test code = ANTHONYMS Sage [place] 15[address]) [address] POCT-GLUCOSE [id number] 06:11:00 Test Item Value Reference Range Interpretation Comments POC-GLUCOSE METER 105 mg/dL 70-110 TESTED AT [place] [address] ([facility]) (test code = ANTHONYMS Sage [place] [address]) [address] POCT-GLUCOSE [id number] 20:28:00 Test Item Value Reference Range Interpretation Comments POC-GLUCOSE METER 124 mg/dL 70-110 H TESTED AT [place] [address] ([facility]) (test code = ANTHONYMS Sage [place] 15[address]) [address] POCT-GLUCOSE [id number] 16:46:00 Test Item Value Reference Range Interpretation Comments POC-GLUCOSE METER 113 mg/dL 70-110 H TESTED AT [place] [address] ([facility]) (test code = ANTHONYMS Sage [place] 15[address]) [address] POCT-GLUCOSE [id number] 11:46:00 Test Item Value Reference Range Interpretation Comments POC-GLUCOSE METER 113 mg/dL 70-110 H TESTED AT [place] [address] ([facility]) (test code = [facility] Sage [place] 15[address]) [address] URINE [id number] 09:54:00 Test Item Value Reference Range Interpretation Comments CULTURE ([facility]) (test KLEBSIELLA A >100, 000 col/mL code [...] S Sulfamethoxazole (test code = 47) POCT-GLUCOSE [id number] 06:46:00 Test Item Value Reference Range Interpretation Comments POC-GLUCOSE METER 111 mg/dL 70-110 H TESTED AT [place] [address] ([facility]) (test code = ANTHONYERIK Cazares [facility] 1538) [address] POCT-GLUCOSE [id number] 20:48:00 Test Item Value Reference Range Interpretation Comments POC-GLUCOSE METER 128 mg/dL 70-110 H TESTED AT [place] [address] ([facility]) ([facility] 15[facility] [address] POCT-GLUCOSE [id number] 16:00:00 Test Item Value Reference Range Interpretation Comments POC-GLUCOSE METER 127 mg/dL 70-110 H TESTED AT [place] [address] ([facility]) (test code = [facility] Sage [facility] 1538) [address] POCT-GLUCOSE [id number] 11:16:00 Test Item Value Reference Range Interpretation Comments POC-GLUCOSE METER 273 mg/dL 70-110 H TESTED AT [place] [address] ([facility]) (test code = [facility] 1538) [address] COMPREHENSIVE METABOLIC [id number] 06:44:00 Test Item Value Reference Range Interpretation Comments TOTAL PROTEIN 6.4 gm/dL 6.0-8.3 (BEAKER) (test code = 770) ALBUMIN (BEAKER) 2.9 g/dL 3.5-5.0 L (test code = 1145) ALKALINE PHOSPHATASE 109 U/L 40-150 (BEAKER) (test code = 346) BILIRUBIN TOTAL < mg/dL 0.2-1.2 (BEAKER) (test code = 377) SODIUM (BEAKER) (test 142 meq/L 136-145 code = 381) POTASSIUM (BEAKER) 4.1 meq/L [...] S NOT APPLICABLE FOR DIALYSIS PATIEN TS. [id number] 06:27:00 Test Item Value Reference Range Interpretation Comments PARTIAL THROMBOPLASTIN TIME 38.5 seconds 22.5-36.0 H (BEAKER) (test code = 760) PROTHROMBIN [id number] 06:26:00 Test Item Value Reference Range Interpretation [...] PERCENT (BEAKER) (test code = 2801) POCT-GLUCOSE [id number] 06:22:00 Test Item Value Reference Range Interpretation Comments POC-GLUCOSE METER 131 mg/dL 70-110 H TESTED AT [facility] [address] (BEAKER) (test code = T[place]HA HINES [place] 15[address]) [address] URINALYSIS W/ [id number] 20:35:00 Test Item Value Reference Range Interpretation [...] code Urine, Clean Catch = 2795) POCT-GLUCOSE [id number] 20:21:00 Test Item Value Reference Range Interpretation Comments POC-GLUCOSE METER 132 mg/dL 70-110 H TESTED AT [place] [address] (BEAKER) (test code = TISHA Cazares [facility] 1538) [address] POCT-GLUCOSE [id number] 16:17:00 Test Item Value Reference Range Interpretation Comments POC-GLUCOSE METER 101 mg/dL 70-110 TESTED AT [place] [address] (BEAKER) (test code = TISHA Cazares [facility] 1538) [address] POCT-GLUCOSE [id number] 13:35:00 Test Item Value Reference Range Interpretation Comments POC-GLUCOSE METER 143 mg/dL 70-110 H TESTED AT [place] [address] (BEAKER) (test code = TISHA Cazares [facility] 1538) [address] BASIC METABOLIC [id number] 06:31:00 Test Item Value Reference Range Interpretation [...] APPLICABLE FOR DIALYSIS PATIEN TS. BASIC METABOLIC [id number] 05:41:00 Test Item Value Reference Range Interpretation [...] 0-0 (BEAKER) (test code = 413) VITAMIN [id number] 06:04:00 Test Item Value Reference Range Interpretation Comments VITAMIN B12 (BEAKER) (test code = 619 pg/mL 213-816 774) [id number] 06:04:00 Test Item Value Reference Range Interpretation Comments FERRITIN (BEAKER) (test code = 361) 335 ng/mL 5-275 H Effective 03/02/2014: Reference Range ChangeNew: Male 5-275 Previous: Male 22-322 Female 5-275 Female 10-291FOLATE, [id number] 06:04:00 Test Item Value Reference Range Interpretation Comments FOLATE (BEAKER) (test code = 362) 4.9 ng/mL >=7.0 L Effective 03/02/2014: Folate Reference Range ChangeNew: >=7.0 Previous: >=5.4BASIC METABOLIC [id number] 05:47:00 Test Item Value Reference Range Interpretation [...] (BEAKER) (test code = 413) BASIC METABOLIC [id number] 05:53:00 Test Item Value Reference Range Interpretation [...] WBC 0-0 (BEAKER) (test code = 413) [id number] 22:53:00 Test Item Value Reference Range Interpretation Comments ACTIVATED CLOTTING TIME 153 sec TEST ED AT [place] [address] ([facility]) (test code = TISHA HINES [facility]) [address] [id number] 22:35:00 Test Item Value Reference Range Interpretation Comments ACTIVATED CLOTTING TIME 202 sec TEST ED AT [place] [address] ([facility]) (test code = TISHA HINES [facility]) [address] [id number] 22:04:00 Test Item Value Reference Range Interpretation [...] (BEAKER) (test code = 413) BASIC METABOLIC [id number] 08:43:00 Test Item Value Reference Range Interpretation [...] (BEAKER) (test code = 413) BASIC METABOLIC [id number] 06:44:00 Test Item Value Reference Range Interpretation [...] PATIEN TS. CBC W/PLT COUNT & AUTO [id number] 21:33:00 Test Item Value Reference Range Interpretation [...] 0-1 PERCENT (BEAKER) (test code = 2801) [id number] 07:21:00 Test Item Value Reference Range Interpretation Comments PHOSPHORUS (BEAKER) (test code = 3.6 mg/dL 2.3-4.7 604) [id number] 07:21:00 Test Item Value Reference Range Interpretation Comments MAGNESIUM (BEAKER) (test code = 1.9 mg/dL 1.6-2.6 627) COMPREHENSIVE METABOLIC [id number] 07:21:00 Test Item Value Reference Range Interpretation [...] code = 413) PHENYTOIN LEVEL, TOTAL AND [id number] 01:14:00 Test Item Value Reference Range Interpretation Comments PHENYTOIN (DILANTIN) (BEAKER) 22.9 ug/mL 10.0-20.0 H (test code = 605) PHENYTOIN FREE (BEAKER) (test 3.51 mcg/ml 1.00-2.00 H code = 847) VALPROIC ACID LEVEL, [id number] 20:49:00 Test Item Value Reference Range Interpretation Comments VALPROIC ACID TOTAL (BEAKER) (test 33 ug/mL 50-100 L code = 924) Therapeutic range for some clinical conditions may be >100 ug/mLPOCT-GLUCOSE [id number] 17:10:00 Test Item Value Reference Range Interpretation Comments POC-GLUCOSE METER 108 mg/dL 70-110 TESTED AT [facility] 67[address] (BEAKER) (test code = T[place] HINES [place] 15[address]) [address] PHENYTOIN LEVEL, [id number] 12:29:00 Test Item Value Reference Range Interpretation Comments PHENYTOIN (DILANTIN) (BEAKER) 16.3 ug/mL 10.0-20.0 (test code = 605) CREATINE KINASE (CK), TOTAL AND [id number] 12:26:00 Test Item Value Reference Range Interpretation Comments CREATINE KINASE TOTAL (BEAKER) 47 U/L 29-200 (test code = 380) CREATINE KINASE-MB (BEAKER) (test 1.1 ng/mL 0.0-6.6 code = 750) CREATINE KINASE-MB INDEX (BEAKER) 2.3 % (test code = 395) Effective 03/02/2014: CK-MB Reference Range ChangeNew: 0.0-6.6 Previous: 0.0-4.9CK-MB Reference Range:<6.7 Normal6.7-10.0 Borderline>10.0 AbnormalTROPONIN [id number] 12:26:00 Test Item Value Reference Range Interpretation [...] renalfailure, acidosis, acute neurological disease, and persistent tachyarrhythmia.[id number] 12:17:00 Test Item Value Reference Range Interpretation Comments MAGNESIUM (BEAKER) (test code = 2.0 mg/dL 1.6-2.6 627) COMPREHENSIVE METABOLIC [id number] 12:17:00 Test Item Value Reference Range Interpretation [...] PATIEN TS. CBC W/PLT COUNT & AUTO [id number] 11:55:00 Test Item Value Reference Range Interpretation [...] PERCENT (BEAKER) (test code = 2801) URINE [id number] 11:55:00 Test Item Value Reference Range Interpretation Comments CULTURE (BEAKER) (test code = 1095) No growth BLOOD GAS, [id number] 10:28:00 Test Item Value Reference Range Interpretation [...] (test code = 1819) 32.0 % POCT-GLUCOSE [id number] 09:53:00 Test Item Value Reference Range Interpretation Comments POC-GLUCOSE METER 184 mg/dL 70-110 H TESTED AT [facility] 67[address] (BEAKER) (test code = TISHA HIN[place] 1538) [address] TROPONIN [id number] 22:44:00 Test Item Value Reference Range Interpretation [...] acidosis, acute neurological disease, and persistent tachyarrhythmia.TROPONIN [id number] 15:17:00 Test Item Value Reference Range Interpretation [...] MORPHOLOGY (BEAKER) (test code = Normal 762) [id number] 07:06:00 Test Item Value Reference Range Interpretation Comments PHOSPHORUS (BEAKER) (test code = 2.5 mg/dL 2.3-4.7 604) [id number] 07:06:00 Test Item Value Reference Range Interpretation Comments MAGNESIUM (BEAKER) (test code = 2.0 mg/dL 1.6-2.6 627) COMPREHENSIVE METABOLIC [id number] 07:06:00 Test Item Value Reference Range Interpretation [...] NOT APPLICABLE FOR DIALYSIS PATIEN TS. PROTHROMBIN [id number] 06:40:00 Test Item Value Reference Range Interpretation Comments PROTIME (BEAKER) (test code = 12.5 seconds 11.7-14.7 759) INR (BEAKER) (test code = 370) 1.0 <=5.9 RECOMMENDED COUMADIN/WARFARIN INR THERAPY RANGESSTANDARD DOSE: 2.0 - 3.0 Includes: PROPHYLAXIS forvenous thrombosis, systemic embolization; TREATMENT for venous thrombosis and/or pulmonary embolus.HIGH RISK: Target INR is 2.5-3.5 for patients with mechanical heart valves.URINALYSIS W/ [id number] 06:18:00 Test Item Value Reference Range Interpretation [...] 516) SOURCE(BEAKER) (test code = Urine, Voided 9933) COMPREHENSIVE METABOLIC [id number] 05:47:00 Test Item Value Reference Range Interpretation [...] (BEAKER) (test code = 413) COMPREHENSIVE METABOLIC [id number] 10:08:00 Test Item Value Reference Range Interpretation [...] 0-0 (BEAKER) (test code = 413) POCT-GLUCOSE [id number] 12:08:00 Test Item Value Reference Range Interpretation Comments POC-GLUCOSE METER 111 mg/dL 70-110 H TESTED AT [place] [address] ([facility]) (test code = TISHA Cazares [facility] 1538) [address] POCT-GLUCOSE [id number] 08:40:00 Test Item Value Reference Range Interpretation Comments POC-GLUCOSE METER 184 mg/dL 70-110 H TESTED AT [place] [address] ([facility]) (test code = TISHA Cazares [facility] 1538) [address] [id number] 05:57:00 Test Item Value Reference Range Interpretation Comments MAGNESIUM (BEAKER) (test code = 2.1 mg/dL 1.6-2.6 627) BASIC METABOLIC [id number] 05:57:00 Test Item Value Reference Range Interpretation [...] 0-0 (BEAKER) (test code = 413) POCT-GLUCOSE [id number] 21:18:00 Test Item Value Reference Range Interpretation Comments POC-GLUCOSE METER 118 mg/dL 70-110 H TESTED AT [facility] 67 ([facility]) (test code = T[place] HINES [place] 1538) [address] POCT-GLUCOSE [id number] 17:33:00 Test Item Value Reference Range Interpretation Comments POC-GLUCOSE METER 102 mg/dL 70-110 TESTED AT [facility] 67[address] ([facility]) (test code = T[place]HA HIN[place] 1538) [address] POCT-GLUCOSE [id number] 12:06:00 Test Item Value Reference Range Interpretation Comments POC-GLUCOSE METER 188 mg/dL 70-110 H TESTED AT [facility] 6720 (BEAKER) (test code = TISHA Cazares [place] 1538) [address] POCT-GLUCOSE [id number] 08:31:00 Test Item Value Reference Range Interpretation Comments POC-GLUCOSE METER 109 mg/dL 70-110 TESTED AT [facility] 6720 (BEAKER) (test code = TISHA Cazares [place] 1538) [address] [id number] 06:07:00 Test Item Value Reference Range Interpretation Comments MAGNESIUM (BEAKER) (test code = 2.0 mg/dL 1.6-2.6 627) BASIC METABOLIC [id number] 06:07:00 Test Item Value Reference Range Interpretation [...] S NOT APPLICABLE FOR DIALYSIS PATIEN TS. [id number] 05:40:00 Test Item Value Reference Range Interpretation [...] 0-0 (BEAKER) (test code = 413) POCT-GLUCOSE [id number] 21:01:00 Test Item Value Reference Range Interpretation Comments POC-GLUCOSE METER 118 mg/dL 70-110 H TESTED AT [place] [address] ([facility]) (test code = [facility] [place] 1538) [address] POCT-GLUCOSE [id number] 18:51:00 Test Item Value Reference Range Interpretation Comments POC-GLUCOSE METER 117 mg/dL 70-110 H TESTED AT [place] [address] ([facility]) (test code = [facility] [place] 1538) [address] POCT-GLUCOSE [id number] 14:02:00 Test Item Value Reference Range Interpretation Comments POC-GLUCOSE METER 129 mg/dL 70-110 H TESTED AT [place] [address] (BEAKER) (test code = TISHA HINES [place] 1538) [address] [id number] 04:19:00 Test Item Value Reference Range Interpretation Comments MAGNESIUM (BEAKER) (test code = 1.8 mg/dL 1.6-2.6 627) BASIC METABOLIC [id number] 04:19:00 Test Item Value Reference Range Interpretation [...] S NOT APPLICABLE FOR DIALYSIS PATIEN TS. [id number] 04:13:00 Test Item Value Reference Range Interpretation [...] heart valves.Prior to initiating heparinPrior to initiating [id number] 04:13:00 Test Item Value Reference Range Interpretation Comments PARTIAL THROMBOPLASTIN TIME 42.4 seconds 22.5-36.0 H (BEAKER) (test code = 760) LACTIC ACID, ARTERIAL, WHOLE [id number] 04:09:00 Test Item Value Reference Range Interpretation [...] 0-0 (BEAKER) (test code = 413) CALCIUM, [id number] 03:54:00 Test Item Value Reference Range Interpretation Comments CALCIUM IONIZED (BEAKER) (test 1.14 mmol/L 1.12-1.27 code = 698) PH, BLOOD (BEAKER) (test code = 7.49 1810) BLOOD GAS, [id number] 03:54:00 Test Item Value Reference Range Interpretation [...] (test code = 1819) 36.0 % POCT-GLUCOSE [id number] 17:32:00 Test Item Value Reference Range Interpretation Comments POC-GLUCOSE METER 121 mg/dL 70-110 H TESTED AT [place] [address] ([facility]) (test code = TISHA Cazares [place] 1538) [address] PLATELET AGGREGATION: FUNCTION [id number] 14:46:00 Test Item Value Reference Range Interpretation Comments WEAK ADP 82 % 60-91 RESULT([facility]) (test code = 2135) PLATELET FUNCTION 60-100% indicates SCREEN INTERP ([facility]) normal platelet (test code = 2173) function [id number] Mari Phelan MD ([facility]) (test code = (electronic signature) 1763) PLATELET COUNT AGG 221 K/CU MM 150-450 ([facility]) (test code = 2656) POCT-GLUCOSE [id number] 12:58:00 Test Item Value Reference Range Interpretation Comments POC-GLUCOSE METER 129 mg/dL 70-110 H TESTED AT [place] [address] ([facility]) (test code = [facility] [place] 1538) [address] HEMOGLOBIN [id number] 09:09:00 Test Item Value Reference Range Interpretation Comments HEMOGLOBIN A1C (BEAKER) (test code = 5.1 % 4.3-6.1 368) BLOOD GAS, [id number] 06:57:00 Test Item Value Reference Range Interpretation [...] (test code = 1819) 40.0 % POCT-GLUCOSE [id number] 06:01:00 Test Item Value Reference Range Interpretation Comments POC-GLUCOSE METER 154 mg/dL 70-110 H TESTED AT [facility] 6720 (BEAKER) (test code = T[place] 1538) [address] [id number] 05:02:00 Test Item Value Reference Range Interpretation Comments MAGNESIUM (BEAKER) (test code = 2.0 mg/dL 1.6-2.6 627) BASIC METABOLIC [id number] 05:02:00 Test Item Value Reference Range Interpretation [...] S NOT APPLICABLE FOR DIALYSIS PATIEN TS. [id number] 04:56:00 Test Item Value Reference Range Interpretation [...] code = 2801) LACTIC ACID, ARTERIAL, WHOLE [id number] 04:39:00 Test Item Value Reference Range Interpretation Comments LACTATE BLOOD ARTERIAL (2) 1.2 mmol/L 0.5-2.2 (BEAKER) (test code = 2874) Effective 08/17/2015: Units/Reference Range ChangeNew: 0.5-2.2 mmol/L Previous: 5-20 mg/dLCALCIUM, [id number] 04:11:00 Test Item Value Reference Range Interpretation Comments CALCIUM IONIZED (BEAKER) (test 1.17 mmol/L 1.12-1.27 code = 698) PH, BLOOD (BEAKER) (test code = 7.44 1810) BLOOD GAS, [id number] 04:11:00 Test Item Value Reference Range Interpretation [...] code = 1819) 40.0 % OXYGEN SATURATION, [id number] 04:09:00 Test Item Value Reference Range Interpretation Comments O2 SATURATION (MEASURED) (BEAKER) 80.7 % (test code = 1455) POCT-GLUCOSE [id number] 02:46:00 Test Item Value Reference Range Interpretation Comments POC-GLUCOSE METER 150 mg/dL 70-110 H TESTED AT [facility] 6720 (BEAKER) (test code = TISHA Cazares [place] 1538) [id number] POCT-GLUCOSE [id number] 18:29:00 Test Item Value Reference Range Interpretation Comments POC-GLUCOSE METER 111 mg/dL 70-110 H TESTED AT [facility] 6720 (BEAKER) (test code = TISHA Cazares [place] 1538) [id number] 16:27:00 Test Item Value Reference Range Interpretation Comments POTASSIUM (BEAKER) (test code = 4.2 meq/L 3.5-5.1 379) [id number] 16:27:00 Test Item Value Reference Range Interpretation Comments MAGNESIUM (BEAKER) (test code = 2.1 mg/dL 1.6-2.6 627) [id number] 16:27:00 Test Item Value Reference Range Interpretation Comments SODIUM (BEAKER) (test code = 381) 141 meq/L 136-145 BASIC METABOLIC [id number] 16:27:00 Test Item Value Reference Range Interpretation [...] DIALYSIS PATIEN TS. LACTIC ACID, ARTERIAL, WHOLE [id number] 16:23:00 Test Item Value Reference Range Interpretation Comments LACTATE BLOOD 1.8 mmol/L 0.5-2.2 Specimen sligh tly ARTERIAL (2) (BEAKER) hemoly zed (test code = 2874) Effective 08/17/2015: Units/Reference Range ChangeNew: 0.5-2.2 mmol/L Previous: 5-20 mg/dLPT/[id number] 16:18:00 Test Item Value Reference Range Interpretation [...] for patients with mechanical heart valves.HEMOGLOBIN AND [id number] 16:10:00 Test Item Value Reference Range Interpretation [...] (BEAKER) (test code = 413) BLOOD GAS, [id number] 16:03:00 Test Item Value Reference Range Interpretation [...] (test code = 1819) 60.0 % CALCIUM, [id number] 16:03:00 Test Item Value Reference Range Interpretation Comments CALCIUM IONIZED (BEAKER) (test 1.18 mmol/L 1.12-1.27 code = 698) PH, BLOOD (BEAKER) (test code = 7.36 1810) OXYGEN SATURATION, [id number] 16:02:00 Test Item Value Reference Range Interpretation Comments O2 SATURATION (MEASURED) (BEAKER) 82.9 % (test code = 1455) [id number] 15:26:00 Test Item Value Reference Range Interpretation Comments ACTIVATED CLOTTING TIME 120 sec TEST ED AT [facility] 6720 (BEAKER) (test code = [place] [address]) [address] [id number] 15:26:00 Test Item Value Reference Range Interpretation Comments ACTIVATED CLOTTING TIME 802 sec TEST ED AT [place] [address] [facility] (test code = [place] [address]) [address] [id number] 15:26:00 Test Item Value Reference Range Interpretation Comments ACTIVATED CLOTTING TIME 884 sec TEST ED AT [place] [address] ([facility]) (test code = [place] C[place]ares [place] [address]) [address] [id number] 15:26:00 Test Item Value Reference Range Interpretation Comments ACTIVATED CLOTTING TIME 621 sec TEST ED AT [place] [address] ([facility] (test code = [place] [address]) [address] THROMBOELASTOGRAPH (TEG)2016-11-28 14:00:00 Test Item Value Reference [...] MM 55.0-65.0 H (test code = 1413) [id number] 13:28:00 Test Item Value Reference Range Interpretation Comments FIBRINOGEN LEVEL (BEAKER) (test 458 mg/dl 225-434 H code = 658) [id number] 13:28:00 Test Item Value Reference Range Interpretation Comments PARTIAL THROMBOPLASTIN TIME 39.7 seconds 22.5-36.0 H (BEAKER) (test code = 760) PROTHROMBIN TIME/[id number] 13:27:00 Test Item Value Reference Range Interpretation Comments PROTIME (BEAKER) (test code = 17.4 seconds 11.7-14.7 H 759) INR (BEAKER) (test code = 370) 1.4 <=5.9 RECOMMENDED COUMADIN/WARFARIN INR THERAPY RANGESSTANDARD DOSE: 2.0 - 3.0 Includes: PROPHYLAXIS forvenous thrombosis, systemic embolization; TREATMENT for venous thrombosis and/or pulmonary embolus.HIGH RISK: Target INR is 2.5-3.5 for patients with mechanical heart valves.PLATELET [id number] 13:21:00 Test Item Value Reference Range Interpretation Comments PLATELET COUNT 151 K/CU MM 150-450 Discordant re sult (BEAKER) (test code compared to previous = 756) result; clinica l correlation req uired. CALCIUM, [id number] 13:06:00 Test Item Value Reference Range Interpretation Comments CALCIUM IONIZED (BEAKER) (test 1.07 mmol/L 1.12-1.27 L code = 698) PH, BLOOD (BEAKER) (test code = 7.31 1810) SODIUM NA-STAT [id number] 13:05:00 Test Item Value Reference Range Interpretation Comments SODIUM (BEAKER) (test code = 381) 135 meq/L 135-148 POTASSIUM-STAT [id number] 13:05:00 Test Item Value Reference Range Interpretation Comments POTASSIUM (BEAKER) (test code = 4.4 meq/L 3.6-5.5 379) BLOOD GAS, [id number] 13:05:00 Test Item Value Reference Range Interpretation [...] (test code = 1819) 67.0 % GLUCOSE-STAT [id number] 13:05:00 Test Item Value Reference Range Interpretation Comments GLUCOSE RANDOM (BEAKER) (test code 145 mg/dL 70-110 H = 652) HGB/HCT (H&H) - STAT [id number] 13:05:00 Test Item Value Reference Range Interpretation Comments HEMOGLOBIN (BEAKER) (test code = 10.2 g/dL 13.0-16.8 L 410) HEMATOCRIT (BEAKER) (test code = 30.0 % 40.0-50.0 L 411) BLOOD GAS, [id number] 12:26:00 Test Item Value Reference Range Interpretation [...] (test code = 1819) 65.0 % GLUCOSE-STAT [id number] 12:26:00 Test Item Value Reference Range Interpretation Comments GLUCOSE RANDOM (BEAKER) (test code 132 mg/dL 70-110 H = 652) HGB/HCT (H&H) - STAT [id number] 12:26:00 Test Item Value Reference Range Interpretation Comments HEMOGLOBIN (BEAKER) (test code = 10.6 g/dL 13.0-16.8 L 410) HEMATOCRIT (BEAKER) (test code = 31.0 % 40.0-50.0 L 411) SODIUM NA-STAT [id number] 12:25:00 Test Item Value Reference Range Interpretation Comments SODIUM (BEAKER) (test code = 381) 136 meq/L 135-148 POTASSIUM-STAT [id number] 12:25:00 Test Item Value Reference Range Interpretation Comments POTASSIUM (BEAKER) (test code = 4.4 meq/L 3.6-5.5 379) BLOOD GAS, [id number] 12:03:00 Test Item Value Reference Range Interpretation [...] (test code = 1819) 65.0 % POTASSIUM-STAT [id number] 12:00:00 Test Item Value Reference Range Interpretation Comments POTASSIUM (BEAKER) (test code = 4.7 meq/L 3.6-5.5 379) BLOOD GAS, [id number] 12:00:00 Test Item Value Reference Range Interpretation [...] (test code = 1819) 65.0 % GLUCOSE-STAT [id number] 12:00:00 Test Item Value Reference Range Interpretation Comments GLUCOSE RANDOM (BEAKER) (test code 140 mg/dL 70-110 H = 652) HGB/HCT (H&H) - STAT [id number] 12:00:00 Test Item Value Reference Range Interpretation Comments HEMOGLOBIN (BEAKER) (test code = 10.4 g/dL 13.0-16.8 L 410) HEMATOCRIT (BEAKER) (test code = 31.0 % 40.0-50.0 L 411) SODIUM NA-STAT [id number] 12:00:00 Test Item Value Reference Range Interpretation Comments SODIUM (BEAKER) (test code = 381) 131 meq/L 135-148 L PLATELET AGGREGATION: FUNCTION [id number] 11:08:00 Test Item Value Reference Range Interpretation Comments WEAK ADP 76 % 60-91 RESULT(BEAKER) (test code = 2135) PLATELET FUNCTION 60-100% indicates SCREEN INTERP (BEAKER) normal platelet (test code = 2173) function [id number] Mari Phelan MD (BEAKER) (test code = (electronic signature) 3340) PLATELET COUNT AGG 222 K/CU MM 150-450 (BEAKER) (test code = 2656) for patients on clopidogrel in past two weeksHEMOGLOBIN [id number] 08:57:00 Test Item Value Reference Range Interpretation Comments HEMOGLOBIN A1C (BEAKER) (test code = 5.0 % 4.3-6.1 368) CBC W/PLT COUNT & AUTO [id number] 05:54:00 Test Item Value Reference Range Interpretation [...] 0-1 PERCENT (BEAKER) (test code = 2801) [id number] 05:37:00 Test Item Value Reference Range Interpretation Comments PARTIAL THROMBOPLASTIN TIME 56.5 seconds 22.5-36.0 H (BEAKER) (test code = 760) BASIC METABOLIC [id number] 05:33:00 Test Item Value Reference Range Interpretation [...] NOT APPLICABLE FOR DIALYSIS PATIEN TS. PROTHROMBIN TIME/[id number] 05:33:00 Test Item Value Reference Range Interpretation Comments PROTIME (BEAKER) (test code = 13.3 seconds 11.7-14.7 759) INR (BEAKER) (test code = 370) 1.0 <=5.9 RECOMMENDED COUMADIN/WARFARIN INR THERAPY RANGESSTANDARD DOSE: 2.0 - 3.0 Includes: PROPHYLAXIS forvenous thrombosis, systemic embolization; TREATMENT for venous thrombosis and/or pulmonary embolus.HIGH RISK: Target INR is 2.5-3.5 for patients with mechanical heart valves.[id number] 19:22:00 Test Item Value Reference Range Interpretation Comments PARTIAL THROMBOPLASTIN TIME 37.4 seconds 22.5-36.0 H (BEAKER) (test code = 760) PROTHROMBIN TIME/[id number] 19:21:00 Test Item Value Reference Range Interpretation Comments PROTIME (BEAKER) (test code = 12.8 seconds 11.7-14.7 759) INR (BEAKER) (test code = 370) 1.0 <=5.9 RECOMMENDED COUMADIN/WARFARIN INR THERAPY RANGESSTANDARD DOSE: 2.0 - 3.0 Includes: PROPHYLAXIS forvenous thrombosis, systemic embolization; TREATMENT for venous thrombosis and/or pulmonary embolus.HIGH RISK: Target INR is 2.5-3.5 for patients with mechanical heart valves.[id number] 11:49:00 Test Item Value Reference Range Interpretation Comments PARTIAL THROMBOPLASTIN TIME 34.7 seconds 22.5-36.0 (BEAKER) (test code = 760) Prior to initiating heparinPLATELET [id number] 11:31:00 Test Item Value Reference Range Interpretation Comments PLATELET COUNT (BEAKER) (test 199 K/CU MM 150-450 code = 756) PLATELET AGGREGATION: FUNCTION [id number] 11:12:00 Test Item Value Reference Range Interpretation Comments WEAK ADP 90 % 60-91 RESULT(BEAKER) (test code = 2135) PLATELET FUNCTION 60-100% indicates SCREEN INTERP (BEAKER) normal platelet (test code = 2173) function [id number] Mari Phelan MD ([facility]) (test code = (electronic signature) 2927) PLATELET COUNT AGG 200 K/CU MM 150-450 ([facility]) (test code = 2656) HEMOGLOBIN [id number] 08:38:00 Test Item Value Reference Range Interpretation Comments HEMOGLOBIN A1C ([facility]) (test code = 5.5 % 4.3-6.1 368) TROPONIN [id number] 08:35:00 Test Item Value Reference Range Interpretation Comments TROPONIN I ([facility]) (test code = 0.40 ng/mL 0.00-0.03 HH [...] Reference Range Interpretation Comments CREATINE KINASE TOTAL ([facility]) 39 U/L 29-200 (test code = 380) CREATINE KINASE-MB ([facility]) (test 1.6 ng/mL 0.0-6.6 code = 750) CREATINE KINASE-MB INDEX ([facility]) 4.1 % (test code = 395) Effective 03/02/2014: CK-MB Reference Range ChangeNew: 0.0-6.6 Previous: 0.0-4.9CK-MB Reference Range:<6.7 Normal6.7-10.0 Borderline>10.0 AbnormalPOCT-GLUCOSE [id number] 08:23:00 Test Item Value Reference Range Interpretation Comments POC-GLUCOSE METER 104 mg/dL 70-110 TESTED AT [facility] 6720 ([facility]) (test code = [place] 1538) [address] PROTHROMBIN TIME/[id number] 04:32:00 Test Item Value Reference Range Interpretation Comments PROTIME (BEAKER) (test code = 13.5 seconds 11.7-14.7 759) INR (BEAKER) (test code = 370) 1.0 <=5.9 RECOMMENDED COUMADIN/WARFARIN INR THERAPY RANGESSTANDARD DOSE: 2.0 - 3.0 Includes: PROPHYLAXIS forvenous thrombosis, systemic embolization; TREATMENT for venous thrombosis and/or pulmonary embolus.HIGH RISK: Target INR is 2.5-3.5 for patients with mechanical heart valves.[id number] 02:13:00 Test Item Value Reference Range Interpretation Comments PHOSPHORUS (BEAKER) (test code = 3.9 mg/dL 2.3-4.7 604) [id number] 02:13:00 Test Item Value Reference Range Interpretation Comments MAGNESIUM (BEAKER) (test code = 2.1 mg/dL 1.6-2.6 627) BASIC METABOLIC [id number] 02:13:00 Test Item Value Reference Range Interpretation [...] PATIEN TS. CBC W/PLT COUNT & AUTO [id number] 01:44:00 Test Item Value Reference Range Interpretation [...] 0-1 PERCENT (BEAKER) (test code = 2801) PT/[id number] 01:31:00 Test Item Value Reference Range Interpretation [...] 2.5-3.5 for patients with mechanical heart valves.TROPONIN [id number] 00:46:00 Test Item Value Reference Range Interpretation [...] 0.0-6.6 Previous: 0.0-4.9CK-MB Reference Range:<6.7 Normal6.7-10.0 Borderline>10.0 ClhuurqfVMVPQXXGSI3460-22-54 06:58:00 Test Item Value Reference Range Interpretation Comments PHOSPHORUS (BEAKER) (test code = 3.7 mg/dL 2.3-4.7 604) [id number] 06:58:00 Test Item Value Reference Range Interpretation Comments MAGNESIUM (BEAKER) (test code = 1.9 mg/dL 1.6-2.6 627) BASIC METABOLIC [id number] 06:58:00 Test Item Value Reference Range Interpretation [...] S NOT APPLICABLE FOR DIALYSIS PATIEN TS. [id number] 06:36:00 Test Item Value Reference Range Interpretation Comments PHOSPHORUS (BEAKER) (test code = 4.1 mg/dL 2.3-4.7 604) [id number] 06:36:00 Test Item Value Reference Range Interpretation Comments MAGNESIUM (BEAKER) (test code = 2.0 mg/dL 1.6-2.6 627) BASIC METABOLIC [id number] 06:36:00 Test Item Value Reference Range Interpretation [...] S NOT APPLICABLE FOR DIALYSIS PATIEN TS. [id number] 15:50:00 Test Item Value Reference Range Interpretation Comments RPR SCREEN (BEAKER) (test code = Nonreactive Nonreactive 420) HEMOGLOBIN [id number] 10:29:00 Test Item Value Reference Range Interpretation Comments HEMOGLOBIN A1C (BEAKER) (test code = 5.4 % 4.3-6.1 368) VITAMIN B12 AND [id number] 09:21:00 Test Item Value Reference Range Interpretation Comments VITAMIN B12 (BEAKER) (test code = 335 pg/mL 213-816 774) FOLATE (BEAKER) (test code = 362) 36.6 ng/mL >=7.0 Effective 03/02/2014: Folate Reference Range ChangeNew: >=7.0 Previous: >=5.4CBC W/PLT COUNT & AUTO [id number] 08:15:00 Test Item Value Reference Range Interpretation [...] (test code = 417) 0.00TSH/FREE T4 IF [id number] 08:00:00 Test Item Value Reference Range Interpretation Comments THYROID STIMULATING HORMONE 1.39 uIU/mL 0.35-4.94 (BEAKER) (test code = 772) BASIC METABOLIC [id number] 07:26:00 Test Item Value Reference Range Interpretation [...] TO CALCU LATE m ESTIMATED GFR. LIPID [id number] 07:26:00 Test Item Value Reference Range Interpretation [...] 100-129 Borderline 130-159 High 160-189 Very High >=163MKVFEPXUFD9689-85-46 07:25:00 Test Item Value Reference Range Interpretation Comments PHOSPHORUS (BEAKER) (test code = 3.8 mg/dL 2.3-4.7 604) [id number] 07:25:00 Test Item Value Reference Range Interpretation Comments MAGNESIUM (BEAKER) (test code = 2.0 mg/dL 1.6-2.6 627) URINALYSIS W/ [id number] 19:16:00 Test Item Value Reference Range Interpretation [...] 520) SOURCE(BEAKER) (test code = Urine, Voided 2783) BLOOD [id number] 11:00:00 Test Item Value Reference Range Interpretation Comments CULTURE (BEAKER) (test No growth in 5 days code = 1095) BLOOD [id number] 11:00:00 Test Item Value Reference Range Interpretation Comments CULTURE (BEAKER) (test No growth in 5 days code = 1095) BASIC METABOLIC [id number] 05:33:00 Test Item Value Reference Range Interpretation [...] ESTIMATED GFR. CBC W/PLT COUNT & AUTO [id number] 05:04:00 Test Item Value Reference Range Interpretation [...] 0.00-0.20 (test code = 417) 0.00VANCOMYCIN LEVEL, [id number] 21:36:00 Test Item Value Reference Range Interpretation Comments VANCOMYCIN TROUGH (BEAKER) (test 9.5 ug/mL 10.0-20.0 L code = 522) Please draw prior to 4th vancomycin doseVITAMIN B12 AND [id number] 04:33:00 Test Item Value Reference Range Interpretation Comments VITAMIN B12 (BEAKER) (test code = 599 pg/mL 213-816 774) FOLATE (BEAKER) (test code = 362) 7.7 ng/mL >=7.0 Effective 03/02/2014: Folate Reference Range ChangeNew: >=7.0 Previous: >=5.4HEPATIC FUNCTION [id number] 03:58:00 Test Item Value Reference Range Interpretation [...] = 12 U/L 6-55 347) BASIC METABOLIC [id number] 03:58:00 Test Item Value Reference Range Interpretation [...] ESTIMATED GFR. CBC W/PLT COUNT & AUTO NAYAFCUFZMUI1463-71-83 03:45:00 Test Item Value Reference Range Interpretation [...] K/ L 0.00-0.20 (test code = 417) [id number] 03:18:00 Test Item Value Reference Range Interpretation Comments PARTIAL THROMBOPLASTIN TIME 42.6 seconds 22.5-36.0 H (BEAKER) (test code = 760) PROTHROMBIN TIME/[id number] 03:17:00 Test Item Value Reference Range Interpretation Comments PROTIME (BEAKER) (test code = 13.0 seconds 11.7-14.7 759) INR (BEAKER) (test code = 370) 1.0 <=5.9 RECOMMENDED COUMADIN/WARFARIN INR THERAPY RANGESSTANDARD DOSE: 2.0 - 3.0 Includes: PROPHYLAXIS forvenous thrombosis, systemic embolization; TREATMENT for venous thrombosis and/or pulmonary embolus.HIGH RISK: Target INR is 2.5-3.5 for patients with mechanical heart valves.BASIC METABOLIC [id number] 02:48:00 Test Item Value Reference Range Interpretation [...] ESTIMATED GFR. CBC W/PLT COUNT & AUTO QACTZLPSZGRN6649-05-41 02:47:00 Test Item Value Reference Range Interpretation [...] K/ L 0.00-0.20 (test code = 417) 0.48VUVPEHVZU2534-66-21 09:18:0014.0[facility] PittvfqCOXXQUEWZ1182-35-42 09:18:00 110[facility] PlirikiDJBFGDOEP3364-48-51 09:18:0026[facility] HermannCHEMISTRY 2011-09-29 09:18:009.1[facility] WewkkorCZCTUGNXW8725-79-34 09:18:53330Jjjywlzy IxosuydZHFXPNMHA2995-60-34 09:18:004.0[facility] IentigsGMULRQSOE0135-88-35 09:18:0011[facility] HkfadaqVHSILBRFR9491-45-23 09:18:32543Tyepytsx [place] BODCNODKO2399-67-81 09:18:000.7[facility] TtqwqhdEJVJYWGSSE6545-83-92 09:18:0013.6 [facility] OnrikiuHPJTLNGPTD3858-06-76 09:18:0098.9[facility] HermannHEMATOLOGY 2011-09-29 09:18:0038.8[facility] InenbviWDTSGEUGIU3853-89-23 09:18:009.7[facility] XehjaraMHXKMHSHCV9165-14-11 09:18:01005Yrvekazj BsxmfwvCYWQMOXPQT5147-64-96 09:18:0034.5[facility] KudbjmbHQAUGSNTQF6109-83-64 09:18:00 Test Item Value Reference Range Interpretation Comments MCH (test code = MCH) 34.2 pg 27.0-31.0 H [facility] MsuaovlXERGRAFSGG8455-38-66 09:18:0013.4[facility] HermannHEMATOLOGY 2011-09-29 09:18:005.8[facility] OcklhtgKUXXSGQHEE0079-89-59 09:18:003.92[facility] EuajavzPAWFEFALNQ5053-20-42 09:18:000.8[facility] TwpdidnVXMZKLRGVP8982-26-88 09:18:002.4[facility] RonionuDJKLGEEXNX9685-02-21 09:18:000.0[facility] [place] HZDWZBPXIG8699-38-67 09:18:000.2[facility] GqdyjklDGTENSZLBX4651-48-75 09:18:00 41.3[facility] ZpdrnexLHFGYXYUMZ6556-29-14 09:18:0041.0[facility] HermannHEMATOLOGY 2011-09-29 09:18:003.9[facility] FqfnipgQVNHUTWNXH9916-86-12 09:18:002.4[facility] CbklznyKKEBAXDBPT2781-10-62 09:18:000.3[facility] QfqwqriIVXPWSXEXZ1007-99-00 09:18:0013.5[facility] HermannBEDSIDE GLUCOSE ELEQDJP9202-89-95 21:40:43898 [facility] ArtfvhwGGUBXNPXL9825-59-47 10:14:0030[facility]annCHEMISTRY 2011-09-25 10:14:009.0[facility] YyhsayuQQQYVEDYV2991-51-74 10:14:0086[facility] UlrfhqzCFORBSHYF7466-10-42 10:14:004.4[facility] IipsttfUWNVMEFZG3350-23-80 10:14:92197Fcyfuvgq LujffkzHYHMQPFXB0701-34-60 10:14:0013[facility] SQQBEQQOB0513-43-05 10:14:000.7[facility] ExnhxwvDJALGJRFK5789-16-85 10:14:74352 [facility] BbbbzsmOUZWLRJXH1709-33-44 10:14:0011.4[facility] HermannHEMATOLOGY 2011-09-25 10:14:000.5[facility] ElqwktrGBCSMESHYH7891-86-46 10:14:003.1[facility] SwgmsuhEYXCBBTFPU0161-83-38 10:14:003.1[facility] MlnqlxfEGLWWCRKRR1526-48-83 10:14:002.3[facility] CjayedtHFZYFTZLEP2276-06-91 10:14:000.9[facility] [place] VWQJGCGTYM0879-01-75 10:14:0048.3[facility] KueipxoEOVWDXSLBA7585-24-45 10:14:00 34.9[facility] VzsoxvsYRXMMDIAOP5092-40-30 10:14:001+ *ABN*(09/25/2011 05:14:00) [facility] VrocdttZQLDXFLSNP7770-76-02 10:14:000.2[facility] HermannHEMATOLOGY 2011-09-25 10:14:0013.2[facility] LoragusZWXXSIPGSN2579-38-28 10:14:000.0[facility] JflvauuHNUHULPXJN5231-30-64 10:14:009.1[facility] FomljquVGKSWSQRYA0085-38-87 10:14:89103Vfnqeakl GftvenaOHDKBCIZLC5001-19-76 10:14:0014.3[facility] SSVTNGWGVS1890-09-89 10:14:0034.1[facility] LhjqcbxMTDCVOJFJO8662-80-28 10:14:00 42.1[facility] XorvxnwLEQWFTHZOZ2361-62-73 10:14:0014.4[facility] HermannHEMATOLOGY 2011-09-25 10:14:006.4[facility] LbgsjrpRZHNKDDSQX9910-74-30 10:14:0099.3[facility] HxicmyaGCUCNWDVDF2953-79-32 10:14:004.24[facility] UdhpicuBBRJYVFCET0952-11-16 10:14:00 Test Item Value Reference Range Interpretation Comments MCH (test code = MCH) 33.9 pg 27.0-31.0 H [facility] MtwgihtSCDGTGNSY4154-10-66 09:04:0095[facility] HermannCHEMISTRY 2011-09-18 09:04:009[facility] GihfnbpWNPAJYTMG0491-20-52 09:04:000.6[facility] ChnttwkANYQWTYRD8002-77-65 09:04:96529Zhisphaj WaarxafWZWDLBAID1619-13-82 09:04:004.1[facility] VwttkxbQRVJEWGFM7807-95-79 09:04:54944Mctxmjun [place] GDIPKERSC9424-12-67 09:04:0025[facility] XkcrcbkFLMMGBSWH9664-82-76 09:04:009.0 [facility] UtsaxlmUYYIRURIV3881-65-36 09:04:0013.1[facility] HermannHEMATOLOGY 2011-09-18 09:04:001+ *ABN*(09/18/2011 04:04:00)[facility]annHEMATOLOGY 2011-09-18 09:04:000.9[facility] AegcywcMDSPASLDZP5460-75-22 09:04:002.1[facility] IfboscaLNKUKWRPCA1894-55-95 09:04:0054.6[facility] LlfzkplEBCWGKKJVS5536-95-10 09:04:000.2[facility] LubuzbhPLJJORGSKL0106-70-52 09:04:002.3[facility] [place] CLGMWGQTQI0691-78-42 09:04:0012.9[facility] RxalwonMZLRZHWHGJ5871-24-40 09:04:00 29.9[facility] UfomhbyWMAOXJLHZX2515-91-79 09:04:000.3[facility] HermannHEMATOLOGY 2011-09-18 09:04:000.0[facility] CmxgnipUKWRAFSSQN5938-47-89 09:04:003.8[facility] QubcqeyIZSKDYUTSO2695-35-36 09:04:0043.5[facility] KqybfzuSSUUALWXTP0418-30-30 09:04:0099.4[facility] ZhlgloeDNBFJCCVNY2023-92-76 09:04:0014.8[facility] JJNRZGUSVL6453-48-59 09:04:004.37[facility] OutqldySPILORBNOH9108-25-81 09:04:00 6.9[facility] UlgmhzeDNQNKGBHDG7962-85-41 09:04:45444Innzgdjo HermannHEMATOLOGY 2011-09-18 09:04:0034.2[facility] EojtfefRPWMJMNPGA4907-61-06 09:04:009.1[facility] CalrygdMFONNTXCCF2233-69-57 09:04:0013.9[facility] BqnrbnwQBSYACAYNO1597-17-34 09:04:00 Test Item Value Reference Range Interpretation Comments MCH (test code = MCH) 33.9 pg 27.0-31.0 H [facility] QhpujohJJYUZLLZRB2549-84-82 13:25:00<1[facility] HermannURINALYSIS 2011-09-16 13:25:001[facility] KilinxvJVEAELOATX3700-33-23 13:25:00Few /LPF *NA*(09/16/2011 08:25:00)[facility] KnpcqodPFZSAYLNMU2925-46-51 13:25:00Negative mg/dL *NA*(09/16/2011 08:25:00)[facility] OzkdxreWROHZKHSWE5527-10-76 13:25:00 Negative *NA*(09/16/2011 08:25:00)[facility] IhcfetcQAWQXDGDGO1206-07-26 13:25:00 Negative (09/16/2011 08:25:00)[facility] WegqhsvJFBNHDQSBK8362-61-59 13:25:00 Negative (09/16/2011 08:25:00)[facility] BjczvxcVBMWRTRLSW8670-23-94 13:25:00 Negative (09/16/2011 08:25:00)[facility] CyykxmxEOPDYLIZSI9897-19-78 13:25:00 Occasional /LPF *NA*(09/16/2011 08:25:00)[facility] VrgxlrzFLKWJKCFXU7979-77-33 13:25:00Negative mg/dL *NA*(09/16/2011 08:25:00)[facility]annURINALYSIS 2011-09-16 13:25:00Negative mg/dL (09/16/2011 08:25:00)[facility] HCHQFVMOAE0551-05-97 13:25:00Yellow *NA*(09/16/2011 08:25:00)[facility] VMPEMZKNHB5804-83-61 13:25:005.5[facility] SvwzzviYNASKDKVEC9287-31-29 13:25:00 1.017[facility] AyrwxusHICHCAMPPH9959-67-28 13:25:00Clear (09/16/2011 08:25:00) [facility] TebgrgmFUSHXHNECF8284-32-18 08:42:00Few /LPF *NA*(09/15/2011 03:42:00) [facility] HaiarhcVMWWTXSXZU7206-54-05 08:42:001[facility]URINALYSIS 2011-09-15 08:42:00Negative (09/15/2011 03:42:00)[facility] 2011-09-15 08:42:00Negative (09/15/2011 03:42:00)[facility] 2011-09-15 08:42:00Negative (09/15/2011 03:42:00)[facility] 2011-09-15 08:42:005.5[facility] NuygjyjVOZUEZQCQS3595-87-22 08:42:00Negative mg/dL (09/15/2011 03:42:00)[facility] PovudmbXWWLGVASXM9807-11-02 08:42:00Negative mg/dL *NA*(09/15/2011 03:42:00)[facility] LjztwjzZVLUCXFCPF5732-53-87 08:42:00 Negative mg/dL *NA*(09/15/2011 03:42:00)[facility] IisfrlaGNJTTYLFUN4978-00-53 08:42:00Negative *NA*(09/15/2011 03:42:00)[facility] DegzqdoZKTQNBTGZB5736-60-00 08:42:00Yellow *NA*(09/15/2011 03:42:00)[facility] DsibqcsFWCAHQOHYX7675-22-34 08:42:00Slight *ABN*(09/15/2011 03:42:00)[facility] GrdkcgyBJNJLNBGPW4827-11-10 08:42:001.012[facility] MpdrqbhFIWIKSCUY1552-23-68 08:40:003.390[facility] JQHUXGRYQ3791-21-32 08:40:008.5[facility] DnhmmmzAGPMTOEAH4914-04-78 08:40:0033 [facility] MwsqfjpRBHUUDFWH5959-78-33 08:40:003.390[facility] HermannCHEMISTRY 2011-09-15 08:40:006.4[facility] UaapstfWWUHPOKRJ7931-81-95 08:40:0014[facility] XsegbsfQWLYYIAQW0903-73-69 08:40:000.4[facility] EjzslfxLTFOHSDPW4498-57-88 08:40:0024[facility] NuzaxzmBITWQNLLE2152-61-67 08:40:0081[facility] ZNBJRNKOM0379-32-98 08:40:003.3[facility] BuqheduZFIGQYADI0899-61-54 08:40:001.1 [facility] IomkcxdOJAJUWXOX2782-88-06 08:40:0014[facility]annCHEMISTRY 2011-09-15 08:40:003.1[facility] HduchpuENGEMSPSY6535-69-84 08:40:002.8[facility] CenterBdqgwfsCVGAYRWHBB0052-63-85 08:40:00 Test Item Value Reference Range Interpretation Comments PTT (test code = PTT) 32.4 s 22.9-35.8 N [facility]XWEVVLXHB5950-05-19 08:40:00 Test Item Value Reference Range Interpretation Comments PT (test code = PT) 13.0 s 12.0-14.7 N [facility]landZtbiysaUHYCCMFPFK4329-72-48 08:40:000.98[facility]
[2020-01-22] MEDS: MORPHINE 4 MG/ML SYR IV PRN ×2 (05:42→09:42)
[2020-01-22 05:52] LABS: Absolute Lymphocytes (CBC) 2.5 K/uL (0.7-4.9); Basophils % 0.7 % (0-1.3); Lymphocytes % 39.2 % (15.3-44.8); MPV 9.8 fL (7.6-11.3); RBC Red Blood Cell Count 4.17 M/uL (4.33-5.43)
[2020-01-22 06:08] LABS: BUN Blood Urea Nitrogen 15 mg/dL (7-18); Bicarbonate 30 mmol/L (21-32); Glucose Level 88 mg/dL (74-106); Potassium 3.9 mmol/L (3.5-5.1); Sodium Level 140 mmol/L (136-145); Troponin I < 0.02 ng/mL (0.0-0.045)
[2020-01-22] MEDS ORDERED: INFLUENZA VACCINE (for 3y+) 0.5 ML DOSE IMVAC ONE (08:00)
[2020-01-22 08:55] VITALS: BP 120/60; TEMP 97
[2020-01-22] MEDS ORDERED: ASPIRIN EC 81 MG TAB PO SCH (09:00)
[2020-01-22] MEDS: levETIRAcetam 500 MG TAB PO SCH (09:32)
[2020-01-22] MEDS: METOPROLOL TAR 25 MG TAB PO SCH (09:32)
[2020-01-22] MEDS: DIVALPROEX DR 500MG TAB PO SCH (09:32)
[2020-01-22] MEDS ORDERED: REGADENOSON 0.4 MG/5 ML SYR IV ONE (09:57)
--- NOTE | 2020-01-22 11:35 | RAD REPORT ---
EXAM DESCRIPTION: NM - Rest Stress Cardiac Imaging - 01/22/2020 11:29 am CLINICAL HISTORY: CP Chest pain. COMPARISON: Rest Stress Cardiac Imaging dated 11/26/2016 TECHNIQUE: The patient was administered approximately 10mCi of Tc 99m Sestamibi prior to resting SPE CT imaging of the heart. The patient was then administered approximately 30 mCi of Tc 99m Sestamibi f ollowing exercise or pharmacologic stress. Multiplanar SPECT images were reviewed. FINDINGS: No stress induced ischemic defect is seen to suggest stress induced ischemia. No fixed def ect is seen to suggest hibernating myocardium or scarred myocardium. The end diastolic volume is 106 ml, the end systolic volume is 44 ml, and the ejection fraction is 59 %. IMPRESSION: No stress induced ischemia.
--- NOTE | 2020-01-22 13:15 | P.HP ---
Certification for Inpatient Patient admitted to: Observation With expected LOS: <2 Midnights Patient will require the following post-hospital care: None Practitioner: I am a practitioner with admitting privileges, knowledge of patient current condition, hospital course, and medical plan of care. Services: Services provided to patient in accordance with Admission requirements found in Title 42 Section 412.3 of the Code of Federal Regulations Patient History Date of Service: 01/21/20 Reason for admission: Chest pain rule out acute coronary syndrome History of Present Illness: Patient is a 69-year-old gentleman who came to the hospital with chest discomfort. Pain was mainly in the sternal region. The was no significant radiation. He has been having chest pain on and off for the last 2 weeks. He used to see Dr. 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 He went into the office yesterday and was seen by Dr. Hidalgo. He went to admit him to the hospital for further evaluation and stress test evaluation. Patient hemodynamically is stable. EKG is unremarkable for any acute changes. His chest pain is relieved with sublingual nitroglycerin. Stress test will be ordered for in the morning. Will monitor him tonight until we get the results of the stress test. 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 Mother Medical History: Diabetes - Social History Smoking Status: Former smoker Alcohol use: No CD- Drugs: No Caffeine use: Yes Place of Residence: Home Review of Systems 10-point ROS is otherwise unremarkable Physical Examination - Vital Signs Temperature: 97.0 F Blood Pressure: 120/60 Pulse: 50 Respirations: 15 Pulse Ox (%): 94 - Physical Exam General: Alert, In no apparent distress, Oriented x3 HEENT: Atraumatic, PERRLA, Mucous membr. moist/pink, EOMI, Sclerae nonicteric Neck: Supple, 2+ carotid pulse no bruit, No LAD, Without JVD or thyroid abnormality Respiratory: Clear to auscultation bilaterally, Normal air movement Cardiovascular: Regular rate/rhythm, Normal S1 S2, No murmurs Gastrointestinal: Normal bowel sounds, Soft and benign, Non-distended, No tenderness Musculoskeletal: No clubbing, No swelling, No tenderness Neurological: Normal gait, Normal speech, Normal strength at 5/5 x4 extr, Normal tone, Sensation intact, Cranial nerves 3-12 intact Lymphatics: No axilla or inguinal lymphadenopathy Assessment & Plan - Problems (Diagnosis) (1) Chest pain, rule out acute myocardial infarction Current Visit: Yes Status: Acute (2) Coronary artery disease involving coronary bypass graft Current Visit: Yes Status: Acute (3) CAD (coronary artery disease) Onset Date: 05/06/17 Current Visit: No Status: Chronic Qualifiers: (4) COPD (chronic obstructive pulmonary disease) Onset Date: 08/09/16 Current Visit: No Status: Chronic Qualifiers: (5) Chronic pain disorder Current Visit: No Status: Chronic (6) History of CVA (cerebrovascular accident) Current Visit: No Status: Chronic (7) Hyperlipidemia Current Visit: No Status: Chronic Qualifiers: (8) Seizure Onset Date: 08/09/16 Current Visit: No Status: Chronic - Plan 1. Serial troponins and EKG 2. Cardiology consultation 3. Echocardiogram and stress test in AM 4. Anti-platelet therapy, anti coagulation, beta-maryann, statin, and O2 as needed 5. IV morphine for pain 6. Nitro p.r.n. Discharge Plan: Home Plan to discharge in: 24 Hours - Advance Directives Does patient have a Living Will: No Does patient have a Durable POA for Healthcare: No - Code Status/Comfort Care Code Status Assessed: Yes Code Status: Full Code Critical Care: No Time Spent Managing PTS Care (In Minutes): 45
[2020-01-22] MEDS ORDERED: CODEINE 30MG/APAP 300MG TAB PO ONE (15:00)
--- NOTE | 2020-01-24 11:18 | EKG ---
Test Date: 2020-01-21 Test Time: 17:45:57 Air Marshal: SOSA MEASUREMENT RESULTS: Intervals: Rate: 56 WV: 186 QRSD: 92 QT: 422 QTc: 407 [place]: P: WV: 186 QRS: -12 T: 219 INTERPRETIVE STATEMENTS: Sinus bradycardia ST & T wave abnormality, consider inferolateral ischemia Abnormal ECG Compared to ECG 01/21/2020 11:15:12 ST (T wave) deviation now present Possible ischemia now present Sinus rhythm no longer present Left anterior fascicular block no longer present Electronically Signed On 01-24-20 11:14:42 CDT by Manuelito Nolan
--- NOTE | 2020-01-24 14:46 | P.DS ---
Discharge Date: 01/22/20 Disposition: ROUTINE DISCHARGE Discharge Condition: GOOD Reason for Admission: Chest pain rule out acute coronary syndrome - Problems (1) Chest pain, rule out acute myocardial infarction Status: Acute (2) Coronary artery disease involving coronary bypass graft Status: Acute (3) CAD (coronary artery disease) Onset Date: 05/06/17 Status: Chronic Qualifiers: (4) COPD (chronic obstructive pulmonary disease) Onset Date: 08/09/16 Status: Chronic Qualifiers: (5) Chronic pain disorder Status: Chronic (6) History of CVA (cerebrovascular accident) Status: Chronic (7) Hyperlipidemia Status: Chronic Qualifiers: (8) Seizure Onset Date: 08/09/16 Status: Chronic Brief History of Present Illness: Patient is a 69-year-old gentleman who came to the hospital with chest discomfort. Pain was mainly in the sternal region. The was no significant radiation. He has been having chest pain on and off for the last 2 weeks. He used to see Dr. 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 He went into the office yesterday and was seen by Dr. Hidalgo. He went to admit him to the hospital for further evaluation and stress test evaluation. Patient hemodynamically is stable. EKG is unremarkable for any acute changes. His chest pain is relieved with sublingual nitroglycerin. Stress test will be ordered for in the morning. Will monitor him tonight until we get the results of the stress test. Hospital Course: Patient has done well during hospital stay. Patient is clinically doing well and at this time is stable for discharge. Stress test was negative and did not reveal any significant abnormalities. Continue with outpatient follow-up with Cardiology in 1-2 weeks. Vital Signs/Physical Exam: Temp Pulse Resp BP Pulse Ox 97.0 F 50 15 120/60 94 01/22/20 13:15 01/22/20 13:15 01/22/20 14:14 01/22/20 13:15 01/22/20 14:14 General: Alert, In no apparent distress, Oriented x3 Laboratory Data at Discharge: WBC 6.5 K/uL (4.3-10.9) 01/22/20 05:10 Hgb 13.9 g/dL (13.6-17.9) 01/22/20 05:10 Hct 41.0 % (39.6-49.0) 01/22/20 05:10 Plt Count 193 K/uL (152-406) 01/22/20 05:10 PT 12.0 SECONDS (9.5-12.5) 01/21/20 11:27 INR 1.02 01/21/20 11:27 APTT 36.4 SECONDS (24.3-36.9) 01/21/20 11:27 Sodium 140 mmol/L (136-145) 01/22/20 05:10 Potassium 3.9 mmol/L (3.5-5.1) 01/22/20 05:10 BUN 15 mg/dL (7-18) 01/22/20 05:10 Creatinine 0.54 mg/dL (0.55-1.3) L 01/22/20 05:10 Glucose 88 mg/dL (74-106) 01/22/20 05:10 Troponin I < 0.02 ng/mL (0.0-0.045) 01/22/20 05:10 Triglycerides 127 mg/dL (<150) 01/21/20 Unknown Cholesterol 192 mg/dL (<200) 01/21/20 Unknown HDL Cholesterol 40 mg/dL (40-60) 01/21/20 Unknown Cholesterol/HDL Ratio 4.80 01/21/20 Unknown Home Medications: Divalproex Sodium [Depakote] 500 mg PO BID 11/27/15 levETIRAcetam [Keppra*] 1,000 mg PO BID 11/27/15 Carvedilol [Coreg] 3.125 mg PO BID #60 tablet 01/22/20 Codeine/APAP [Tylenol W/Codeine #3 tab] 1 tab PO Q6HP PRN #20 tab 01/22/20 Isosorbide Dinitrate 30 mg PO DAILY #30 tablet 01/22/20 Prasugrel HCl [Effient] 5 mg PO DAILY #30 tablet 01/22/20 New Medications: Carvedilol [Coreg] 3.125 mg PO BID #60 tablet Prasugrel HCl [Effient] 5 mg PO DAILY #30 tablet Isosorbide Dinitrate 30 mg PO DAILY #30 tablet Codeine/APAP [Tylenol W/Codeine #3 tab] 1 tab PO Q6HP PRN #20 tab PRN Reason: Pain Patient Discharge Instructions: OK TO DC IV AND DC HOME. FOLLOW-UP WITH PRIMARY CARE PROVIDER IN 1-2 WEEKS. FOLLOW-UP WITH CARDIOLOGY IN 1-2 WEEKS. RETURN TO THE ER IF SYMPTOMS WORSEN. CALL or TEXT DR. HUNG AT [phone] IF ANY QUESTIONS REGARDING HOSPITAL STAY. PLEASE CALL THE FLOOR AT [phone] IF ANY MEDICATION OR NURSING QUESTIONS. Diet: AHA Activity: Fall precautions Followup: Manuelito Nolan MD [ACTIVE - CAN ADMIT] - Time spent managing pt's care (in minutes): 35
--- NOTE | 2020-01-25 09:12 | ECHO ---
HEIGHT: 5 ft 8 in WEIGHT: 160 lb 0 oz DATE OF STUDY: 01/22/[address]: Sena Osuna MD 2-DIMENSIONAL: YES M.MODE: YES DOPPLER: YES COLOR FLOW: YES TDS: YES PORTABLE: DEFINITY: BUBBLE STUDY: DIAGNOSIS: CHEST PAIN/ RULE OUT ACUTE CORNARY SYNDROME CARDIAC HISTORY: CATHERIZATION: YES SURGERY: YES PROSTHETIC VALVE: NO PACEMAKER: NO MEASUREMENTS (cm) DIASTOLIC (NORMALS) SYSTOLIC (NORMALS) IVSd 1.1 (0.6-1.2) LA Diam 4.1 (1.9-4.0) LVEF 62% LVIDd 3.8 (3.5-5.7) LVIDs 2.6 (2.0-3.5) %FS 33% LVPWd 1.2 (0.6-1.2) Ao Diam 3.4 (2.0-3.7) 2 DIMENSIONAL ASSESSMENT: RIGHT ATRIUM: NORMAL LEFT ATRIUM: NORMAL RIGHT VENTRICLE: NORMAL LEFT VENTRICLE: NORMAL TRICUSPID VALVE: NORMAL MITRAL VALVE: NORMAL PULMONIC VALVE: NORMAL AORTIC VALVE: NORMAL PERICARDIAL EFFUSION: NONE AORTIC ROOT: NORMAL LEFT VENTRICULAR WALL MOTION: NORMAL DOPPLER/COLOR FLOW: NORMAL COMMENTS: TECHNICALLY DIFFICULT STUDY. GROSSLY NORMAL LEFT VENTRICULAR EJECTION FRACTION AND SIZE. NO WALL MOTION ABNORMALITY. NO EFFUSION. TECHNOLOGIST: THAD PINEDA
--- NOTE | 2020-01-25 09:18 | TREADPHA ---
DX: CHEST PAIN Date of Study: 01/22/2020 Ht: 5' 8 " Wt: 160 lb 0 oz Consulting Physician: VICKY MEDICATIONS: TYLENOL, DEPAKOTE, LOVENOX, ASPIRIN HISTORY: 69 YEAR OLD MALE WITH COMPLAINTS OF CHEST PAIN. MEDICAL HISTORY OF CEREBRAL VASCULAR ACCIDENT, PNEUMONIA, HYPERTENSION, SEIZURES, CARDIAC STENTS, CORNARY ARTERY BYPASS GRAFT, CHRONIC OBSTRUCTIVE PULMONARY DISEASE, POSITIVE SMOKER - 1 PACK PER DAY PHYSICIAL EXAMINATION: RESTING B.P.: 135/64 RESTING H.R.: 52 RESTING EKG: SINUS RHYTHM, NON-SPECIFIC T WAVE PROTOCOL: PHARMACOLIGIC EXERCISE TIME: 3:30 B.P. AT PEAK STRESS: 122/65 IMPRESSION: LEXISCAN INJECTED, CARDIOLITE INJECTED PER PROTOCOL. SEE NUCLEAR MEDICINE REPORT. NO SUPRAVENTRICULAR TACHYCARDIA, NO VENTRICULAR TACHYCARDIA, NO PREMATURE VENTRICULAR COMPLEXES. CHEST PAIN WORSENS UPON ADMINISTRATION OF LEXISCAN - TEN OUT OF TEN ON PAIN SCALE. EIGHT OUT OF TEN IN RECOVERY.
== END 2020-01-22 15:02 | disposition home or self-care (01) ==
LOC: ER 11:05 → ERHOLD 13:27 → 2ND 16:26
PROVIDERS: ADMIT Hospitalist; ATTEND Hospitalist
DX: R07.9 Chest pain, unspecified (principal); I25.10 Atherosclerotic heart disease of native coronary artery without angina pectoris; J44.9 Chronic obstructive pulmonary disease, unspecified; G89.29 Other chronic pain; Z20.828 Contact with and (suspected) exposure to other viral communicable diseases; I25.810 Atherosclerosis of coronary artery bypass graft(s) without angina pectoris; Z86.73 Personal history of transient ischemic attack (TIA), and cerebral infarction without residual deficits; E78.5 Hyperlipidemia, unspecified; G40.909 Epilepsy, unspecified, not intractable, without status epilepticus; R51.9 Headache, unspecified; M54.9 Dorsalgia, unspecified; Z86.711 Personal history of pulmonary embolism; Z87.891 Personal history of nicotine dependence; I10 Essential (primary) hypertension; Z95.1 Presence of aortocoronary bypass graft; Z95.5 Presence of coronary angioplasty implant and graft; R94.31 Abnormal electrocardiogram [ECG] [EKG]; R00.1 Bradycardia, unspecified
CPT/HCPCS: 93005 ×2; 93017; 93306; 85025 ×2; 80048 ×2; 36415; 85610; 80061; 82565; 85730; 84484 ×4; 71275; 71045; 78452; 96375; 96374; 99285; U0002; Q9967; J1650; J2270 ×2; J2785; J2405; A9500; G0378 ×3

== ENCOUNTER 2020-01-23 17:07 | Emergency (ER) | payer OTHER ==
--- OUTSIDE RECORDS SUMMARY | 2020-01-23 17:10 | XMS REPORT | Clinical Summary ---
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
--- OUTSIDE RECORDS SUMMARY | 2020-01-23 17:12 | XMS REPORT | Continuity of Care Document ---
:1950 Author Organization [employer] Care Team Providers Name Role Phone [employer] Unavailable Un available Problems Problem Status Onset Classification Date Comments Sourc e Date Reported CVA Active 09/13/19 [facility] Rehabilita tion Dysarthria Active Problem 10/03/2011 [facility] Weakness Active Problem 10/03/2011 [facility] CVA Active Rehabilita tion Medications Medication Details [...] 750 mg, 1 tab, PO Active [facility] [place] oral tablet PO, Q12H, 60 tab, [...] mg, 1 tab, PO No [facility] [place] [facility] Route: PO, Drug Longer 012 Medical form: TAB, Active Center Bedtime, Start date: 09/21/11 21:00:00, Duration: 30 day, Stop date: 10/20/11 21:00:00 Percocet 5/325 1 tab, Route: PO, PO No [facility] [place] [facility] oral tablet Drug Form: TAB, Longer 012 Medi melissa BID-10-24, Start Active Center date: 09/21/11 9:11:00, Duration: 30 day, Stop date: 10/21/11 7:00:00 Plavix 75 mg, 1 tab, PO No [facility] [facility] Route: PO, Drug Longer 012 Medical form: TAB, Daily, Active Center Start date: 09/15/11 9:00:00, Duration: 30 day, Stop date: 10/14/11 9:00:00 Saline Flush 3 mL, Route: IVP, IVP Erika Zuniga [facility] Am[place] 0.9% Drug Form: INJ, [...] 10/14/11 22:48:00 bisacodyl 10 mg, 1 supp, GA No [facility] Route: GA, Drug Longer 012 Medical form: SUPP, Active Center Bedtime, PRN Constipation, Start date: 09/14/11 22:49:00, Duration: 30 day, Stop date: 10/14/11 22:48:00 zolpidem 5 mg, 1 tab, PO No [place] [facility] Route: PO, Drug Longer 012 Medical form: TAB, Active Center Bedtime, PRN Insomnia, Start date: 09/14/11 22:49:00, Duration: 30 day, Stop date: 10/14/11 22:48:00 Keppra 750 mg 750 mg, 3 tab, PO No [facility] oral tablet Route: PO, Drug Longer [...] 100 mg, 1 cap, PO No [facility] oral capsule Route: PO, Drug Longer [...] ource type Reported aspirin drug Allergy Active [facility] codeine drug Allergy Active [facility] penicillins drug Allergy Active [facility] Immunizations No Data Provided for This Section Results Order Name Results Value Reference Date Interpretation Comments [place] [facility] CHEMISTRY AGAP 14.0 10.0 - 09/28 Normal [place] 20.0 Medical Center CHEMISTRY Chloride Lvl 110 95 - 109 09/28 [facility] Medical Center CHEMISTRY CO2 26 24 - 32 09/28 Normal [facility] CHEMISTRY Calcium Lvl 9.1 8.5 - 10.5 09/28 Normal [facility] CHEMISTRY Sodium Lvl 146 135 - 145 09/28 [facility] Medical Center CHEMISTRY Potassium Lvl 4.0 3.5 - 5.1 09/28 Normal [facility] CHEMISTRY BUN 11 7 - 22 09/28 Normal Medical Center CHEMISTRY Glucose Lvl 107 70 - 99 09/28 HI <sup>2</sup>I T nterpretive Medical Data: Adult Center reference range values reflect the clinical guidelines of the [place] [employer] Association. CHEMISTRY Creatinine 0.7 0.5 - 1.4 09/28 Normal [facility] l /2011 Medical Center HEMATOLOGY RDW 13.6 11.5 - 09/28 Normal [facility] 14.5 Medical Center HEMATOLOGY MCV 98.9 80.0 - 09/28 [facility] [place] 94.0 Medical Center HEMATOLOGY Hct 38.8 42.0 - 09/28 LOW [place] 54.0 /2011 Medical Center HEMATOLOGY MPV 9.7 7.4 - 10.4 09/28 Normal Medical Center HEMATOLOGY Platelet 188 133 - 450 09/28 Normal Medical [place] HEMATOLOGY MCHC 34.5 32.0 - 09/28 Normal [place] 36.0 /2011 Medical Center HEMATOLOGY MCH 34.2 27.0 - 09/28 [facility] [place] 31.0 /2011 Medical Center HEMATOLOGY Hgb 13.4 14.0 - 09/28 LOW [place] 18.0 /2011 Medical Center HEMATOLOGY WBC 5.8 3.7 - 10.4 09/28 Normal [facility] HEMATOLOGY RBC 3.92 4.70 - 09/28 LOW [place] 6.10 Medical Center HEMATOLOGY Monocytes # 0.8 0.0 - 0.8 09/28 Normal [facility] HEMATOLOGY Lymphocytes # 2.4 1.0 - 5.5 09/28 [place] [facility] HEMATOLOGY Basophils # 0.0 0.0 - 0.2 09/28 [place] [facility] HEMATOLOGY Eosinophils # 0.2 0.0 - 0.5 09/28 [place] [facility] HEMATOLOGY Lymphocytes 41.3 20.0 - 09/28 [facility] [place] 40.0 Medical Center HEMATOLOGY Segs 41.0 45.0 - 09/28 LOW [place] 75.0 [facility] HEMATOLOGY Eosinophils 3.9 0.0 - 4.0 09/28 Normal a [facility] HEMATOLOGY Segs-Bands # 2.4 1.5 - 8.1 09/28 Normal [facility] HEMATOLOGY Basophils 0.3 0.0 - 1.0 09/28 Normal [facility] HEMATOLOGY Monocytes 13.5 2.0 - 12.0 09/28 HI [facility] BEDSIDE Comment1 Notify 09/25 NA [facility] GLUCOSE RN/ Medical TESTING Center BEDSIDE Gluc POC 121 70 - 99 09/25 [place] <sup>1</sup>I [facility] GLUCOSE Lifscn nterpretive Medical TESTING Data: Center Upper Reportable Limit: 200 mg/dL. CHEMISTRY CO2 30 24 - 32 09/24 Normal [facility] CHEMISTRY Calcium Lvl 9.0 8.5 - 10.5 09/24 Normal [facility] CHEMISTRY Glucose Lvl 86 70 - 99 09/24 Normal <sup>3</sup>I T ex nterpretive Medical Data: Adult Center reference range values reflect the clinical guidelines of the [place] [employer] Association. CHEMISTRY Potassium Lvl 4.4 3.5 - 5.1 09/24 Normal [place] [facility] CHEMISTRY Chloride Lvl 107 95 - 109 09/24 Normal [facility] CHEMISTRY BUN 13 7 - 22 09/24 Normal Medical Center CHEMISTRY Creatinine 0.7 0.5 - 1.4 09/24 Normal [place] [facility] CHEMISTRY Sodium Lvl 144 135 - 145 09/24 Normal [facility] CHEMISTRY AGAP 11.4 10.0 - 09/24 Normal [place] 20.0 [facility] [place] HEMATOLOGY Basophils 0.5 0.0 - 1.0 09/24 Normal [facility] [place] HEMATOLOGY Eosinophils 3.1 0.0 - 4.0 09/24 Normal a [facility] HEMATOLOGY Segs-Bands # 3.1 1.5 - 8.1 09/24 Normal [facility] [place] HEMATOLOGY Lymphocytes # 2.3 1.0 - 5.5 09/24 Normal [facility] HEMATOLOGY Monocytes # 0.9 0.0 - 0.8 09/24 HI a [facility] HEMATOLOGY Segs 48.3 45.0 - 09/24 Normal [place] 75.0 [facility] [place] HEMATOLOGY Lymphocytes 34.9 20.0 - 09/24 Normal [place] 40.0 [facility] HEMATOLOGY Macrocyte 1+ None Seen 09/24 ABN *ABN* /2011 Medical (09/25/2011 05:14:00) Ce nter HEMATOLOGY Eosinophils # 0.2 0.0 - 0.5 09/24 Normal [place] [facility] HEMATOLOGY Monocytes 13.2 2.0 - 12.0 09/24 HI [facility] HEMATOLOGY Basophils # 0.0 0.0 - 0.2 09/24 Normal [facility] HEMATOLOGY MPV 9.1 7.4 - 10.4 09/24 Normal [facility] [place] HEMATOLOGY Platelet 183 133 - 450 09/24 Normal [facility] [place] HEMATOLOGY RDW 14.3 11.5 - 09/24 Normal [place] 14.5 [facility] [place] HEMATOLOGY MCHC 34.1 32.0 - 09/24 Normal [place] 36.0 [facility] [place] HEMATOLOGY Hct 42.1 42.0 - 09/24 Normal [place] 54.0 [facility] [place] HEMATOLOGY Hgb 14.4 14.0 - 09/24 Normal [place] 18.0 Medical Center HEMATOLOGY WBC 6.4 3.7 - 10.4 09/24 Normal Medical Center HEMATOLOGY MCV 99.3 80.0 - 06/12 HI [place] 94.0 /2011 Medical Center HEMATOLOGY RBC 4.24 4.70 - 09/24 LOW [place] 6.10 /2011 Medical Center HEMATOLOGY MCH 33.9 27.0 - 09/24 [facility] [place] 31.0 /2011 Medical Center CHEMISTRY Glucose Lvl 95 70 - 99 09/17 Normal <sup>4</sup>I [place] /2011 nterpretive Medical Data: Adult Center reference range values reflect the clinical guidelines of the [place] Diabetes Association. CHEMISTRY BUN 9 7 - 22 06 Normal [facility] CHEMISTRY Creatinine 0.6 0.5 - 1.4 [...] Lvl 9.0 8.5 - 10.5 09/17 Normal [facility] CHEMISTRY AGAP 13.1 10.0 - 09/17 Normal [place] 20.0 Medical Center HEMATOLOGY Macrocyte 1+ None Seen 09/17 [facility] [place] *ABN* /2011 Medical (09/18/2011 04:04:00) Ce nter HEMATOLOGY Monocytes # 0.9 0.0 - 0.8 09/17 [facility] [place] [facility] HEMATOLOGY Lymphocytes # 2.1 1.0 - 5.5 09/17 [place] [facility] HEMATOLOGY Segs 54.6 45.0 - 06/05 Normal [place] 75.0 Medical Center HEMATOLOGY Eosinophils # 0.2 0.0 - 0.5 09/17 [place] [facility] HEMATOLOGY Eosinophils 2.3 0.0 - 4.0 09/17 [place] [facility] HEMATOLOGY Monocytes 12.9 2.0 - 12.0 09/17 [facility] Medical Center HEMATOLOGY Lymphocytes 29.9 20.0 - 06/05 Normal [place] 40.0 Medical Center HEMATOLOGY Basophils 0.3 0.0 - 1.0 09/17 Normal [facility] HEMATOLOGY Basophils # 0.0 0.0 - 0.2 / [place] [facility] [place] HEMATOLOGY Segs-Bands # 3.8 1.5 - 8.1 09/17 Normal [place] [facility] [place] HEMATOLOGY Hct 43.5 42.0 - 09/17 Normal [place] 54.0 /2011 [facility] HEMATOLOGY MCV 99.4 80.0 - / HI [place] 94.0 /2011 [facility] HEMATOLOGY Hgb 14.8 14.0 - 09/17 Normal [facility] 18.0 /2011 [facility] HEMATOLOGY RBC 4.37 4.70 - 06/ LOW [facility] 6.10 /2011 [facility] HEMATOLOGY WBC 6.9 3.7 - 10.4 09/17 Normal [facility] HEMATOLOGY Platelet 178 133 - 450 09/17 Normal [facility] HEMATOLOGY MCHC 34.2 32.0 - 09/17 Normal [facility] 36.0 /2011 [facility] HEMATOLOGY MPV 9.1 7.4 - 10.4 09/17 Normal [facility] HEMATOLOGY RDW 13.9 11.5 - 09/17 Normal [facility] 14.5 /2011 [facility] HEMATOLOGY MCH 33.9 27.0 - 05 [place] [facility] 31.0 /2011 [facility] Microbiolog Culture: 09/15 [facility] y Urine /2011 [facility] URINALYSIS UA 0.1 - 1.0 09/15 NA [facility] Urobilinogen /2011 [facility] URINALYSIS UA WBC <1 0 - 5 09/15 Normal [facility] URINALYSIS UA RBC 1 0 - 2 09/15 Normal [facility] URINALYSIS UA Mucus Few /LPF None Seen 09/15 NA [facility] Medical (09/16/2011 08:25:00) Ce nter URINALYSIS UA Ketones Negative mg/dL Negative 09/15 NA [facility] * Medical (09/16/2011 08:25:00) Ce nter URINALYSIS UA Bili Negative Negative 09/15 NA [facility] * Medical (09/16/2011 08:25:00) Ce nter URINALYSIS UA Blood Negative Negative 09/15 Normal [facility] (09/16/2011 08:25:00) /2011 Nd dicwv Center URINALYSIS UA Nitrite Negative Negative 09/15 Normal [facility] (09/16/2011 08:25:00) Nd dical Center URINALYSIS UA Leuk Est Negative Negative 09/15 Normal [facility] s (09/16/2011 08:25:00) Me dical Center URINALYSIS UA Sq Epi Occasional /LPF Few 09/15 NA [facility] Medical (09/16/2011 08:25:00) Ce nter URINALYSIS UA Glucose Negative mg/dL Negative 09/15 NA Medical (09/16/2011 08:25:00) Ce nter URINALYSIS UA Protein Negative mg/dL Negative 09/15 Normal [facility] (09/16/2011 08:25:00) Nd dical Center URINALYSIS UA Color Yellow Yellow 09/15 NA [facility] Medical (09/16/2011 08:25:00) Ce nter URINALYSIS UA pH 5.5 5.0 - 8.0 09/15 Normal Medical Center URINALYSIS UA Spec Grav 1.017 <=1.030 09/15 Normal Medical [facility] URINALYSIS UA Turbidity Clear Clear 09/15 Normal [facility] (09/16/2011 08:25:00) Nd dical Center URINALYSIS UA Mucus Few /LPF None Seen 09/14 NA [facility] Medical (09/15/2011 03:42:00) Ce nter URINALYSIS UA RBC 1 0 - 2 09/14 Normal Medical Center URINALYSIS UA Blood Negative Negative 09/14 Normal [facility] (09/15/2011 03:42:00) Me dical Center URINALYSIS UA Nitrite Negative Negative 09/14 Normal [facility] (09/15/2011 03:42:00) Me dical Center URINALYSIS UA Leuk Est Negative Negative 09/14 Normal [facility] (09/15/2011 03:42:00) Me dical Center URINALYSIS UA pH 5.5 5.0 - 8.0 09/14 Normal Medical Center URINALYSIS UA Protein Negative mg/dL Negative 09/14 Normal [facility] (09/15/2011 03:42:00) Me dical Center URINALYSIS UA Glucose Negative mg/dL Negative 09/14 [facility] 03:42:00[facility] Ce nter URINALYSIS UA Ketones Negative [facility]:42[facility] Ce nter URINALYSIS UA Bili Negative Negative [facility] (09[facility]2011 03:42:00) Ce nter URINALYSIS UA Color Yellow Yellow 09/14 [facility] (09/15/2011 03:42:00) Ce nter URINALYSIS UA Turbidity Slight Clear 09/14 [facility]N [facility]N Medical (09/15/2011 03:42:00) Ce nter URINALYSIS UA Spec Grav 1.012 <=1.030 09/14 Normal [facility] URINALYSIS UA Sq Epi None Seen 09/14 [facility] URINALYSIS UA 0.1 - 1.0 09/14 NA [facility] Urobilinogen [facility] Microbiolog Culture: 09/14 [facility] y [facility] CHEMISTRY TSH 3.390 0.360 - 09/14 Normal [facility] 3. [facility] CHEMISTRY T4 8.5 4.7 - 13.3 09/14 Normal [facility] CHEMISTRY T3 Uptake 33 31 - 39 09/14 Normal [facility] CHEMISTRY TSH 3.390 0.360 - 09/14 Normal [facility] 3.74 [facility] CHEMISTRY Total Protein 6.4 6.4 - 8.4 09/14 Normal [facility] [place] CHEMISTRY AST 14 0 - 37 09/14 Normal [facility] CHEMISTRY Bili Total 0.4 0.2 - 1.3 09/14 Normal [facility] CHEMISTRY ALT 24 0 - 65 09/14 Normal [facility] CHEMISTRY Alk Phos 81 39 - 136 09/14 Normal [facility] CHEMISTRY Albumin Lvl 3.3 3.5 - 5.0 09/14 LOW [facility] CHEMISTRY A/G Ratio 1.1 0.7 - 1.6 09/14 Normal [facility] CHEMISTRY B/C Ratio 14 6 - 25 09/14 Normal [facility] CHEMISTRY Globulin 3.1 2.0 - 4.0 06/ Normal [facility] CHEMISTRY FTI 2.8 06/ NA [facility] HEMATOLOGY PTT 32.4 22.9 - 06 Normal <sup>6</sup>I [place] 35.8 /2011 nterpretive Medical Data: [facility] Therapeutic Range: 57 - 92 Seconds HEMATOLOGY PT 13.0 12.0 - 06 Normal [facility] 14.7 [facility] HEMATOLOGY INR 0.98 0.85 - 06 [...] Comments Source Systolic (mm Hg) 119 10/01/2011 [facility] Respitory Rate 20 10/01/2011 [facility] Heart Rate 53 10/01/2011 [facility] Temperature Oral (F) 97.6 F 10/01/2011 [facility] Diastolic (mm Hg) 66 10/01/2011 [facility] Diastolic (mm Hg) 76 10/01/2011 [facility] Respitory Rate 20 10/01/2011 [facility] Heart Rate 60 10/01/2011 [facility] Systolic (mm Hg) 125 10/01/2011 [facility] Temperature Oral (F) 98.1 F 10/01/2011 [facility] Systolic (mm Hg) 126 09/30/2011 [facility] Diastolic (mm Hg) 82 09/30/2011 [facility] Heart Rate 52 09/30/2011 [facility] Respitory Rate 18 09/30/2011 [facility] Temperature Oral (F) 97.8 F 09/30/2011 [facility] Height 172.72 cm 09/15/2011 [facility] Weight 76.364 09/15/2011 [facility] Encounters Location Location Encounter Encounter Reason Attending ADM DC Stat us Source Details Type Number For Provider Date Date Visit [id number] [place] 09/13 09/30 Discharge [facility] Rehabilit ation Procedures No Data Provided [...]
--- OUTSIDE RECORDS SUMMARY | 2020-01-23 17:16 | XMS REPORT | Continuity of Care Document ---
:1950 Author Organization [facility] t Address [address] [place] [address] Care Team Providers Name Role Phone Rosmery Rebecca Primary Care Physician MARCIAL NICHOLS Attending Clinician Unavailable ASA Attending Clinician Unavailable NURYS DC Attending Clinician Unavailable ANTONIA RUSSELL Attending Clinician Unavailable Taylor GAUMAN Attending Clinician Unavailable ZHEN BULL Attending Clinician [...] [facility] - status status 00:[facility]: Medical 00 [place] Ptosis, Ptosis, Disease Active [facility] left left 8-25 [facility] - 00:[facility]: Medical 00 [place] COPD COPD Disease Active [facility] (chronic [...] embolism 8-14 [facility] - 00:00: Medical 00 [place] Left-sided Left-sided Disease Active [facility] [...] disorder 6-24 [facility] - 00:00: Medical 00 [place] History of History of Disease Active [facility] atrial atrial 6-24 [facility] - fibrillati fibrillati 00:00: Me dical on on Center Chronic Chronic Disease Active [facility] anticoagul anticoagul 6-24 Thao kes - ation ation 00:00: Medical 00 [place] Cellulitis Cellulitis Disease Active [facility] of 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 space of 00 Center 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 mouth Mandibular Mandibular Disease Active [facility] abscess abscess 3-18 [facility] - 00:00: Medical 00 [place] CVA Diagnosis Active 2011-09-21 Mem oria - 14:49:00 l CVA 06:00: Miguel 00 Active 09/13/2011 [facility] Dysarthria Problem Active 2011-10-03 M emoria 08:09:33 l Miguel Dysarthria Active Problem 10/03/2011 [facility] Weakness Problem Active 2011-10-03 Mem oria 08:09:33 l Weakness Richard n Active Problem 10/03/2011 [facility] CVA Diagnosis Active 2011-09-21 Mem oria 14:49:00 l CVA [place] Active [facility]habil[facility]ion Allergies, Adverse Reactions, Alerts Allergy Allergy Status Severity Reaction(s) Onset Inactive Treating Comm ents Source Name Type Date Date Clinician Aspirin Propensi Active Hives [facility] (Tartraz ty to 3-18 [facility] - ine adverse 00:00: Medical Only) reaction 00 Center s Aspirin Propensi Active Hives [facility] ty to 3-16 [facility] - adverse 00:00: Medical reaction 00 [place] s Penicill Propensi Active Hives, [facility] ins [facility] to Swelling 3-16 [facility] - adverse 00:00: Medical reaction 00 [place] s aspirin aspirin Active [facility]oria l [place] codeine codeine Active Memoria l Miguel penicill penicill Active Memori a ins ins l [place] Family History Family Member Diagnosis Comments Start Date Stop Date Source Natural mother Diabetes [facility] Social History Social Habit Start Date Stop Date Quantity Comments Source Sex Assigned At [facility] Cigarettes smoked 2016-12-13 2016-12-13 [facility] - current (pack per 00:00:00 00:00:00 [facility] day) - Reported Tobacco use and 2016-12-13 2016-12-13 Never used [facility] - exposure 00:00:00 00:00:00 [facility] Alcohol intake 2016-12-13 2016-12-13 Current [facility] - 00:00:00 00:00:00 non-drinker of Medical Ce nter alcohol (finding) Smoking Status Start Date Stop Date Source Current every day smoker 2016-12-13 00:00:00 [facility] Medications Ordered Filled Start Stop Current Ordering Indication Dosage Frequency Signature Comments Components Source Medication Medication Date Date Medication? Clinician (SIG) Name Name acetaminoph Yes 500mg Take [address] en 9-08 mg by [facility] - (TYLENOL) 12:11: mouth Medical 500 MG 30 every 4 Center tablet (four) hours as needed for Pain. arformotero 2017-0 Yes 15ug Q.5D Take [address] [address] l (BROVANA) -08 (15 mcg [facility] - 15 mcg/2 mL 00:00: total) by M edical nebulizer 00 nebul[facility] er solution on 2 (two) times daily. rivaroxaban 2017-0 Yes 15mg Take [address] (XARELTO) 9-08 tablet (15 Luke s - 15 mg Tab 00:00: mg total) Med ical tablet 00 by mouth Center daily with dinner. rOPINIRole 2017-0 Yes 1mg QD Take 0.[address] [facility] (REQUIP) 2 9-08 tablets (1 Janae es - MG tablet 00:00: mg total) Med ical 00 by mouth Center nightly. melatonin 5 2017-0 Yes 5mg QD Take [address] mg Tab -08 tablet (5 [facility] - tablet 00:00: mg total) Medica l 00 by mouth Center nightly. pantoprazol 2017-0 Yes 40mg QD Take [address] e 9-08 tablet (40 [facility] - (PROTONIX) 00:00: mg total) Me dical 40 MG 00 by mouth Center tablet daily. Soma 2011-0 Yes 1, PO, Memoria 6-16 Substituti l 23:36: on Miguel 37 Allowed, TAB OXYcodone 2011-0 Yes 1, PO, Memori a 6-16 PRN, as l 23:36: needed for [place] 23 pain, Substituti on Allowed, TAB Ambien 5 mg 2011-0 Yes Meilani H 5 mg, 1 Memoria oral tablet 6-15 [place] tab, PO, l 19:27: Bedtime, Miguel 59 30 tab, Substituti on Allowed, TAB Keppra 750 2011-0 Yes Meilani H 750 mg, 1 Memoria mg oral 6-15 [place] tab, PO, l tablet 19:27: Q12H, 60 [place] 52 tab, Substituti on Allowed, TAB famotidine 2011-0 Yes Meilani H 20 mg, 1 Memoria 20 mg oral 6-15 [place] tab, PO, l tablet 19:27: BID, 60 [place] 44 tab, Substituti on Allowed, TAB Colace 100 Yes Meilani H 100 mg, 1 Memoria mg oral 6-15 [place] cap, PO, l capsule 19:27: BID, 60 Miguel 40 cap, Substituti on Allowed, CAP Plavix 75 Yes Meilani H 75 mg, 1 Memoria [...] 30 day, Stop date: 10/20/11 21:00:00 Ambien 0 No Marcial De 5 mg, 1 Me moria 6-09 [place] tab, l 02:00: Route: PO, Miguel 00 Drug form: TAB, Bedtime, Start date: 09/21/11 21:00:00, Duration: 30 day, Stop date: 10/20/11 21:00:00 Percocet 0 No Marcial De 1 tab, M emoria 5/325 oral 6-08 [place] Route: PO, l tablet 14:11: Drug Form: Amira nn 00 TAB, BID-10-24, Start date: 09/21/11 9:11:00, Duration: 30 day, Stop date: 10/21/11 7:00:00 Plavix No Jeff 75 mg, 1 Memori a -02 Jef tab, l 14:00: Efrain Route: PO, Richard n 00 Drug form: TAB, Daily, Start date: 09/15/11 9:00:00, Duration: 30 day, Stop date: 10/14/11 9:00:00 Saline 2011- No Jeff 3 mL, Memoria Flush 0.9% 09-14 Jef Route: l 03:49: Efrain IVP, Drug Miguel 00 Form: INJ, Q8H, PRN Line Flush, Start date: 09/14/11 22:49:00, Duration: 30 day, Stop date: 10/14/11 22:48:00, Administer at least once every 8 hoursAdmin ister at least once every 8 hours Milk of No Jeff 30 mL, Memoria Magnesia - Jef Route: PO, l 03:49: Efrain Drug Form: Richard n 00 SUSP, Daily, PRN Constipati on, Start date: 09/14/11 22:49:00, Duration: 30 day, Stop date: 10/14/11 22:48:00 bisacodyl No Jeff 10 mg, 1 Mem oria - Jef supp, l 03:49: Efrain Route: FL, Richard n 00 Drug form: SUPP, Bedtime, PRN Constipati on, Start date: 09/14/11 22:49:00, Duration: 30 day, Stop date: 10/14/11 22:48:00 zolpidem No Marcial De 5 mg, 1 Memoria - [place] tab, l 03:49: Route: PO, [place] 00 Drug form: TAB, Bedtime, PRN Insomnia, Start date: 09/14/11 22:49:00, Duration: 30 day, Stop date: 10/14/11 22:48:00 Keppra 750 No Jeff 750 mg, 3 M emoria mg oral 09-14 Jef tab, l tablet 02:00: Efrain Route: PO, Herm graham Drug form: TAB, Q12H, Start date: 09/14/11 21:00:00, Duration: 30 day, Stop date: 10/14/11 9:00:00 famotidine No Jeff 20 mg, 1 Me moria 20 mg oral 09-13 Jef tab, l tablet 22:00: Efrain Route: PO, Herm graham Drug form: TAB, BID, Start date: 09/14/11 17:00:00, Duration: 30 day, Stop date: 10/14/11 9:00:00 Colace 100 2011-0 No Jeff 100 mg, 1 M emoria [...] Jef mL, Route: l 20:00: Efrain SUB-Q, Miguel 00 Drug form: INJ, Q24H, Start date: [...] Systolic (mm Hg) 2011-10-01 10:34:00 Luan rial [place] Respitory Rate 2011-10-01 10:34:00 Memyudy al [place] Heart Rate 2011-10-01 10:34:00 [facility] Temperature Oral (F) 2011-10-01 10:34:00 97.6 F [facility] [place] Diastolic (mm Hg) 2011-10-01 10:34:00 Mem orial [place] Diastolic (mm Hg) 2011-10-01 00:44:00 Mem orial [place] Respitory Rate 2011-10-01 00:44:00 Memori al [place] Heart Rate 2011-10-01 00:44:00 [facility] [place] Systolic (mm Hg) 2011-10-01 00:44:00 Luan rial Miguel Temperature Oral (F) 2011-10-01 00:44:00 98.1 F [facility] Systolic (mm Hg) 2011-09-30 21:00:00 Luan rial [place] Diastolic (mm Hg) 2011-09-30 21:00:00 Mem orial [place] Heart Rate 2011-09-30 21:00:00 [facility] [place] Respitory Rate 2011-09-30 21:00:00 Memori al [place] Temperature Oral (F) 2011-09-30 10:03:00 97.8 F [facility] [place] Height 2011-09-15 03:49:00 172.72 cm [facility] [place] Weight 2011-09-15 03:49:00 [facility] Procedures This patient has no known procedures. Results Test Description Test Time Test Comments Results Result Comments Source B-TYPE NATRIURETIC FACTOR (BNP) 2016-12-21 05:56:00 Test Item Value Reference Range Interpretation Comme nts B-TYPE NATRIURETIC PEPTIDE (BEAKER) (test code = 700) 136 pg/mL 0-100 H COMPREHENSIVE METABOLIC [id number] 05:53:00 Test Item Value Reference Range Interpretation [...] 8.4-10.2 (test code = 697) AST (SGOT) ([facility]) 67 U/L 5-34 H (test code = 353) ALT (SGPT) ([facility]) 88 U/L 6-55 H (test code = 347) EGFR ([facility]) (test 139 ESTIMATE D GFR IS code = 1092) mL/min/1.73 sq NOT ACCURA TE m CREATININE CLEARANCE IN PREDICTING GLOMERULAR FILTRATION RATE . ESTIMATED GFR I S NOT APPLICABLE FOR DIALYSIS PATIEN TS. POCT-GLUCOSE [id number] 16:33:00 Test Item Value Reference Range Interpretation Comments POC-GLUCOSE METER 116 mg/dL 70-110 H TESTED AT [place] [address] ([facility]) (test code = ANTHONYERIK Cazares [facility] 1538) [id number] POCT-GLUCOSE [id number] 11:08:00 Test Item Value Reference Range Interpretation Comments POC-GLUCOSE METER 133 mg/dL 70-110 H TESTED AT [place] [address] ([facility]) (test code = ANTHONYERIK Cazares [facility] 1538) [address] POCT-GLUCOSE [id number] 06:11:00 Test Item Value Reference Range Interpretation Comments POC-GLUCOSE METER 105 mg/dL 70-110 TESTED AT [place] [address] ([facility]) (test code = ANTHONYERIK Cazares [facility] 1538) [id number] POCT-GLUCOSE [id number] 20:28:00 Test Item Value Reference Range Interpretation Comments POC-GLUCOSE METER 124 mg/dL 70-110 H TESTED AT [place] [address] ([facility]) (test code = ANTHONYERIK Sage [facility] 1538) [address] POCT-GLUCOSE [id number] 16:46:00 Test Item Value Reference Range Interpretation Comments POC-GLUCOSE METER 113 mg/dL 70-110 H TESTED AT [place] [address] ([facility]) (test code = ANTHONYERIK Cazares [facility] 1538) [id number] POCT-GLUCOSE [id number] 11:46:00 Test Item Value Reference Range Interpretation Comments POC-GLUCOSE METER 113 mg/dL 70-110 H TESTED AT [place] [address] ([facility]) (test code = ANTHONYERIK Cazares [place] 1538) [address] URINE [id number] 09:54:00 Test Item Value Reference Range Interpretation Comments CULTURE ([facility]) (test KLEBSIELLA A >100, 000 [...] S Sulfamethoxazole (test code = 47) POCT-GLUCOSE [id number] 06:46:00 Test Item Value Reference Range Interpretation Comments POC-GLUCOSE METER 111 mg/dL 70-110 H TESTED AT [place] [address] ([facility]) (test code = [facility] 1538) [address] POCT-GLUCOSE [id number] 20:48:00 Test Item Value Reference Range Interpretation Comments POC-GLUCOSE METER 128 mg/dL 70-110 H TESTED AT [place] [address] ([facility]) (test code = [facility] 1538) [address]20 POCT-GLUCOSE [id number] 16:00:00 Test Item Value Reference Range Interpretation Comments POC-GLUCOSE METER 127 mg/dL 70-110 H TESTED AT [place] [address] ([facility]) (test code = [facility] 1538) [address]662 POCT-GLUCOSE [id number] 11:16:00 Test Item Value Reference Range Interpretation Comments POC-GLUCOSE METER 273 mg/dL 70-110 H TESTED AT [place] [address] ([facility]) (test code = [facility] 1538) [address] COMPREHENSIVE METABOLIC [id number] 06:44:00 Test Item Value Reference Range Interpretation Comments TOTAL PROTEIN 6.4 gm/dL 6.0-8.3 ([facility]) (test code = 770) ALBUMIN ([facility]) 2.9 g/dL 3.5-5.0 L (test code = [...] I S NOT APPLICABLE FOR DIALYSIS PATIEN [id number] 06:27:00 Test Item Value Reference Range Interpretation Comments PARTIAL THROMBOPLASTIN TIME 38.5 seconds 22.5-36.0 H (BEAKER) (test code = 760) PROTHROMBIN [id number] 06:26:00 Test Item Value Reference Range Interpretation [...] PERCENT (BEAKER) (test code = 2801) POCT-GLUCOSE [id number] 06:22:00 Test Item Value Reference Range Interpretation Comments POC-GLUCOSE METER 131 mg/dL 70-110 H TESTED AT [place] [address] (BEAKER) (test code = TISHA Cazares [place] 1538) [address] URINALYSIS W/ [id number] 20:35:00 Test Item Value Reference Range Interpretation [...] code Urine, Clean Catch = 2795) POCT-GLUCOSE [id number] 20:21:00 Test Item Value Reference Range Interpretation Comments POC-GLUCOSE METER 132 mg/dL 70-110 H TESTED AT [place] [address] (BEAKER) (test code = TISHA Sage [place] 1538) [address] POCT-GLUCOSE [id number] 16:17:00 Test Item Value Reference Range Interpretation Comments POC-GLUCOSE METER 101 mg/dL 70-110 TESTED AT [place] [address] (BEAKER) (test code = TISHA Sage [place] 1538) [address] POCT-GLUCOSE [id number] 13:35:00 Test Item Value Reference Range Interpretation Comments POC-GLUCOSE METER 143 mg/dL 70-110 H TESTED AT [facility] 67[address] (BEAKER) (test code = TISHA [place] 1538) [address] BASIC METABOLIC [id number] 06:31:00 Test Item Value Reference Range Interpretation [...] APPLICABLE FOR DIALYSIS PATIEN TS. BASIC METABOLIC [id number] 05:41:00 Test Item Value Reference Range Interpretation [...] 0-0 (BEAKER) (test code = 413) VITAMIN [id number] 06:04:00 Test Item Value Reference Range Interpretation Comments VITAMIN B12 (BEAKER) (test code = 619 pg/mL 213-816 774) [id number] 06:04:00 Test Item Value Reference Range Interpretation Comments FERRITIN (BEAKER) (test code = 361) 335 ng/mL 5-275 H Effective 03/02/2014: Reference Range ChangeNew: Male 5-275 Previous: Male 22-322 Female 5-275 Female 10-291FOLATE, [id number] 06:04:00 Test Item Value Reference Range Interpretation Comments FOLATE (BEAKER) (test code = 362) 4.9 ng/mL >=7.0 L Effective 03/02/2014: Folate Reference Range ChangeNew: >=7.0 Previous: >=5.4BASIC METABOLIC [id number] 05:47:00 Test Item Value Reference Range Interpretation [...] (BEAKER) (test code = 413) BASIC METABOLIC [id number] 05:53:00 Test Item Value Reference Range Interpretation [...] WBC 0-0 (BEAKER) (test code = 413) [id number] 22:53:00 Test Item Value Reference Range Interpretation Comments ACTIVATED CLOTTING TIME 153 sec TEST ED AT [place] [address] ([facility]) (test code = TISHA Cazares [place] [address]) [address] [id number] 22:35:00 Test Item Value Reference Range Interpretation Comments ACTIVATED CLOTTING TIME 202 sec TEST ED AT [place] [address] ([facility]) (test code = TISHA Cazares [place] [address]) [address] [id number] 22:04:00 Test Item Value Reference Range Interpretation Comments PARTIAL THROMBOPLASTIN TIME 45.2 seconds 22.5-36.0 H (AKER) (test code = 760) Prior to initiating [...] (BEAKER) (test code = 413) BASIC METABOLIC [id number] 08:43:00 Test Item Value Reference Range Interpretation [...] (BEAKER) (test code = 413) BASIC METABOLIC [id number] 06:44:00 Test Item Value Reference Range Interpretation [...] PATIEN TS. CBC W/PLT COUNT & AUTO [id number] 21:33:00 Test Item Value Reference Range Interpretation [...] 0-1 PERCENT (BEAKER) (test code = 2801) [id number] 07:21:00 Test Item Value Reference Range Interpretation Comments PHOSPHORUS (BEAKER) (test code = 3.6 mg/dL 2.3-4.7 604) [id number] 07:21:00 Test Item Value Reference Range Interpretation Comments MAGNESIUM (BEAKER) (test code = 1.9 mg/dL 1.6-2.6 627) COMPREHENSIVE METABOLIC [id number] 07:21:00 Test Item Value Reference Range Interpretation [...] code = 413) PHENYTOIN LEVEL, TOTAL AND [id number] 01:14:00 Test Item Value Reference Range Interpretation Comments PHENYTOIN (DILANTIN) (BEAKER) 22.9 ug/mL 10.0-20.0 H (test code = 605) PHENYTOIN FREE (BEAKER) (test 3.51 mcg/ml 1.00-2.00 H code = 847) VALPROIC ACID LEVEL, [id number] 20:49:00 Test Item Value Reference Range Interpretation Comments VALPROIC ACID TOTAL (BEAKER) (test 33 ug/mL 50-100 L code = 924) Therapeutic range for some clinical conditions may be >100 ug/mLPOCT-GLUCOSE [id number] 17:10:00 Test Item Value Reference Range Interpretation Comments POC-GLUCOSE METER 108 mg/dL 70-110 TESTED AT [facility] [address] ([facility]) (test code = ANTHONYERIK [place] 1538) [id number] PHENYTOIN LEVEL, [id number] 12:29:00 Test Item Value Reference Range Interpretation Comments PHENYTOIN (DILANTIN) (BEAKER) 16.3 ug/mL 10.0-20.0 (test code = 605) CREATINE KINASE (CK), TOTAL AND [id number] 12:26:00 Test Item Value Reference Range Interpretation Comments CREATINE KINASE TOTAL (BEAKER) 47 U/L 29-200 (test code = 380) CREATINE KINASE-MB (BEAKER) (test 1.1 ng/mL 0.0-6.6 code = 750) CREATINE KINASE-MB INDEX (BEAKER) 2.3 % (test code = 395) Effective 03/02/2014: CK-MB Reference Range ChangeNew: 0.0-6.6 Previous: 0.0-4.9CK-MB Reference Range:<6.7 Normal6.7-10.0 Borderline>10.0 AbnormalTROPONIN [id number] 12:26:00 Test Item Value Reference Range Interpretation [...] renalfailure, acidosis, acute neurological disease, and persistent tachyarrhythmia.[id number] 12:17:00 Test Item Value Reference Range Interpretation Comments MAGNESIUM (BEAKER) (test code = 2.0 mg/dL 1.6-2.6 627) COMPREHENSIVE METABOLIC [id number] 12:17:00 Test Item Value Reference Range Interpretation [...] PATIEN TS. CBC W/PLT COUNT & AUTO [id number] 11:55:00 Test Item Value Reference Range Interpretation [...] PERCENT (BEAKER) (test code = 2801) URINE [id number] 11:55:00 Test Item Value Reference Range Interpretation Comments CULTURE (BEAKER) (test code = 1095) No growth BLOOD GAS, [id number] 10:28:00 Test Item Value Reference Range Interpretation [...] (test code = 1819) 32.0 % POCT-GLUCOSE [id number] 09:53:00 Test Item Value Reference Range Interpretation Comments POC-GLUCOSE METER 184 mg/dL 70-110 H TESTED AT [facility] 67[address] (BEAKER) (test code = TISHA [place] 1538) [id number] TROPONIN [id number] 22:44:00 Test Item Value Reference Range Interpretation [...] acidosis, acute neurological disease, and persistent tachyarrhythmia.TROPONIN [id number] 15:17:00 Test Item Value Reference Range Interpretation [...] MORPHOLOGY (BEAKER) (test code = Normal 762) [id number] 07:06:00 Test Item Value Reference Range Interpretation Comments PHOSPHORUS (BEAKER) (test code = 2.5 mg/dL 2.3-4.7 604) [id number] 07:06:00 Test Item Value Reference Range Interpretation Comments MAGNESIUM (BEAKER) (test code = 2.0 mg/dL 1.6-2.6 627) COMPREHENSIVE METABOLIC [id number] 07:06:00 Test Item Value Reference Range Interpretation [...] NOT APPLICABLE FOR DIALYSIS PATIEN TS. PROTHROMBIN [id number] 06:40:00 Test Item Value Reference Range Interpretation Comments PROTIME (BEAKER) (test code = 12.5 seconds 11.7-14.7 759) INR (BEAKER) (test code = 370) 1.0 <=5.9 RECOMMENDED COUMADIN/WARFARIN INR THERAPY RANGESSTANDARD DOSE: 2.0 - 3.0 Includes: PROPHYLAXIS forvenous thrombosis, systemic embolization; TREATMENT for venous thrombosis and/or pulmonary embolus.HIGH RISK: Target INR is 2.5-3.5 for patients with mechanical heart valves.URINALYSIS W/ [id number] 06:18:00 Test Item Value Reference Range Interpretation [...] 516) SOURCE(BEAKER) (test code = Urine, Voided 5488) COMPREHENSIVE METABOLIC [id number] 05:47:00 Test Item Value Reference Range Interpretation [...] (BEAKER) (test code = 413) COMPREHENSIVE METABOLIC [id number] 10:08:00 Test Item Value Reference Range Interpretation [...] 0-0 (BEAKER) (test code = 413) POCT-GLUCOSE [id number] 12:08:00 Test Item Value Reference Range Interpretation Comments POC-GLUCOSE METER 111 mg/dL 70-110 H TESTED AT [place] [address] ([facility]) (test code = [facility] Sage [facility] 1538) [id number] POCT-GLUCOSE [id number] 08:40:00 Test Item Value Reference Range Interpretation Comments POC-GLUCOSE METER 184 mg/dL 70-110 H TESTED AT [place] [address] ([facility]) (test code = [facility] 1538) [address] [id number] 05:57:00 Test Item Value Reference Range Interpretation Comments MAGNESIUM (BEAKER) (test code = 2.1 mg/dL 1.6-2.6 627) BASIC METABOLIC [id number] 05:57:00 Test Item Value Reference Range Interpretation [...] 0-0 (BEAKER) (test code = 413) POCT-GLUCOSE [id number] 21:18:00 Test Item Value Reference Range Interpretation Comments POC-GLUCOSE METER 118 mg/dL 70-110 H TESTED AT [facility] [address] ([facility]) (test code = TISHA [place] 1538) [address] POCT-GLUCOSE [id number] 17:33:00 Test Item Value Reference Range Interpretation Comments POC-GLUCOSE METER 102 mg/dL 70-110 TESTED AT [facility] 67[address] (BEAKER) (test code = TISHA Cazares [facility] 1538) [address] POCT-GLUCOSE [id number] 12:06:00 Test Item Value Reference Range Interpretation Comments POC-GLUCOSE METER 188 mg/dL 70-110 H TESTED AT [facility] 67 (BEAKER) (test code = [facility] Sage [facility] 1538) [address] POCT-GLUCOSE [id number] 08:31:00 Test Item Value Reference Range Interpretation Comments POC-GLUCOSE METER 109 mg/dL 70-110 TESTED AT [place] [address] (BEAKER) (test code = [facility] Sage [facility] 1538) [id number] 06:07:00 Test Item Value Reference Range Interpretation Comments MAGNESIUM (BEAKER) (test code = 2.0 mg/dL 1.6-2.6 627) BASIC METABOLIC [id number] 06:07:00 Test Item Value Reference Range Interpretation [...] S NOT APPLICABLE FOR DIALYSIS PATIEN TS. [id number] 05:40:00 Test Item Value Reference Range Interpretation [...] 0-0 (BEAKER) (test code = 413) POCT-GLUCOSE [id number] 21:01:00 Test Item Value Reference Range Interpretation Comments POC-GLUCOSE METER 118 mg/dL 70-110 H TESTED AT [facility] 67[address] (BEAKER) (test code = TISHA [place] 1538) [address] POCT-GLUCOSE [id number] 18:51:00 Test Item Value Reference Range Interpretation Comments POC-GLUCOSE METER 117 mg/dL 70-110 H TESTED AT [facility] 67[address] (BEAKER) (test code = TISHA Cazares [place] 1538) [address] POCT-GLUCOSE [id number] 14:02:00 Test Item Value Reference Range Interpretation Comments POC-GLUCOSE METER 129 mg/dL 70-110 H TESTED AT [facility] 67[address] (BEAKER) (test code = TISHA [place] 1538) [id number] 04:19:00 Test Item Value Reference Range Interpretation Comments MAGNESIUM (BEAKER) (test code = 1.8 mg/dL 1.6-2.6 627) BASIC METABOLIC [id number] 04:19:00 Test Item Value Reference Range Interpretation [...] S NOT APPLICABLE FOR DIALYSIS PATIEN TS. [id number] 04:13:00 Test Item Value Reference Range Interpretation [...] heart valves.Prior to initiating heparinPrior to initiating [id number] 04:13:00 Test Item Value Reference Range Interpretation Comments PARTIAL THROMBOPLASTIN TIME 42.4 seconds 22.5-36.0 H (BEAKER) (test code = 760) LACTIC ACID, ARTERIAL, WHOLE [id number] 04:09:00 Test Item Value Reference Range Interpretation [...] 0-0 (BEAKER) (test code = 413) CALCIUM, [id number] 03:54:00 Test Item Value Reference Range Interpretation Comments CALCIUM IONIZED (BEAKER) (test 1.14 mmol/L 1.12-1.27 code = 698) PH, BLOOD (BEAKER) (test code = 7.49 1810) BLOOD GAS, [id number] 03:54:00 Test Item Value Reference Range Interpretation [...] (test code = 1819) 36.0 % POCT-GLUCOSE [id number] 17:32:00 Test Item Value Reference Range Interpretation Comments POC-GLUCOSE METER 121 mg/dL 70-110 H TESTED AT [place] [address] ([facility] CENTER) (test code = [place] 1538) [address] PLATELET AGGREGATION: FUNCTION [id number] 14:46:00 Test Item Value Reference Range Interpretation Comments WEAK ADP 82 % 60-91 RESULT([facility]) (test code = 2135) PLATELET FUNCTION 60-100% indicates SCREEN INTERP ([facility]) normal platelet (test code = 2173) function [id number] Mari Phelan MD ([facility]) (test code = (electronic signature) 0131) PLATELET COUNT AGG 221 K/CU MM 150-450 (AKER) (test code = 2656) POCT-GLUCOSE [id number] 12:58:00 Test Item Value Reference Range Interpretation Comments POC-GLUCOSE METER 129 mg/dL 70-110 H TESTED AT [facility] 6720 ([facility]) (test code = [place] 1538) [address] HEMOGLOBIN [id number] 09:09:00 Test Item Value Reference Range Interpretation Comments HEMOGLOBIN A1C (BEAKER) (test code = 5.1 % 4.3-6.1 368) BLOOD GAS, [id number] 06:57:00 Test Item Value Reference Range Interpretation [...] (test code = 1819) 40.0 % POCT-GLUCOSE [id number] 06:01:00 Test Item Value Reference Range Interpretation Comments POC-GLUCOSE METER 154 mg/dL 70-110 H TESTED AT [facility] 6720 (BEAKER) (test code = [place] 1538) [address] [id number] 05:02:00 Test Item Value Reference Range Interpretation Comments MAGNESIUM (BEAKER) (test code = 2.0 mg/dL 1.6-2.6 627) BASIC METABOLIC [id number] 05:02:00 Test Item Value Reference Range Interpretation [...] S NOT APPLICABLE FOR DIALYSIS PATIEN TS. PT/[id number] 04:56:00 Test Item Value Reference Range Interpretation [...] code = 2801) LACTIC ACID, ARTERIAL, WHOLE [id number] 04:39:00 Test Item Value Reference Range Interpretation Comments LACTATE BLOOD ARTERIAL (2) 1.2 mmol/L 0.5-2.2 (BEAKER) (test code = 2874) Effective 08/17/2015: Units/Reference Range ChangeNew: 0.5-2.2 mmol/L Previous: 5-20 mg/dLCALCIUM, [id number] 04:11:00 Test Item Value Reference Range Interpretation Comments CALCIUM IONIZED (BEAKER) (test 1.17 mmol/L 1.12-1.27 code = 698) PH, BLOOD (BEAKER) (test code = 7.44 1810) BLOOD GAS, [id number] 04:11:00 Test Item Value Reference Range Interpretation [...] code = 1819) 40.0 % OXYGEN SATURATION, [id number] 04:09:00 Test Item Value Reference Range Interpretation Comments O2 SATURATION (MEASURED) (BEAKER) 80.7 % (test code = 1455) POCT-GLUCOSE [id number] 02:46:00 Test Item Value Reference Range Interpretation Comments POC-GLUCOSE METER 150 mg/dL 70-110 H TESTED AT [facility] 6720 ([facility]) (test code = [facility] 1538) [address] POCT-GLUCOSE [id number] 18:29:00 Test Item Value Reference Range Interpretation Comments POC-GLUCOSE METER 111 mg/dL 70-110 H TESTED AT [facility] 6720 ([facility]) (test code = [facility] 1538) [address] [id number] 16:27:00 Test Item Value Reference Range Interpretation Comments POTASSIUM (BEAKER) (test code = 4.2 meq/L 3.5-5.1 379) [id number] 16:27:00 Test Item Value Reference Range Interpretation Comments MAGNESIUM (BEAKER) (test code = 2.1 mg/dL 1.6-2.6 627) [id number] 16:27:00 Test Item Value Reference Range Interpretation Comments SODIUM (BEAKER) (test code = 381) 141 meq/L 136-145 BASIC METABOLIC [id number] 16:27:00 Test Item Value Reference Range Interpretation [...] DIALYSIS PATIEN TS. LACTIC ACID, ARTERIAL, WHOLE [id number] 16:23:00 Test Item Value Reference Range Interpretation Comments LACTATE BLOOD 1.8 mmol/L 0.5-2.2 Specimen sligh tly ARTERIAL (2) (BEAKER) hemoly zed (test code = 2874) Effective 08/17/2015: Units/Reference Range ChangeNew: 0.5-2.2 mmol/L Previous: 5-20 mg/dLPT/[id number] 16:18:00 Test Item Value Reference Range Interpretation [...] for patients with mechanical heart valves.HEMOGLOBIN AND [id number] 16:10:00 Test Item Value Reference Range Interpretation [...] (BEAKER) (test code = 413) BLOOD GAS, [id number] 16:03:00 Test Item Value Reference Range Interpretation [...] (test code = 1819) 60.0 % CALCIUM, [id number] 16:03:00 Test Item Value Reference Range Interpretation Comments CALCIUM IONIZED (BEAKER) (test 1.18 mmol/L 1.12-1.27 code = 698) PH, BLOOD (BEAKER) (test code = 7.36 1810) OXYGEN SATURATION, [id number] 16:02:00 Test Item Value Reference Range Interpretation Comments O2 SATURATION (MEASURED) ([facility]) 82.9 % (test code = 1455) [id number] 15:26:00 Test Item Value Reference Range Interpretation Comments ACTIVATED CLOTTING TIME 120 sec TEST ED AT [place] [address] ([facility]) (test code = [place] 441) [address] [id number] 15:26:00 Test Item Value Reference Range Interpretation Comments ACTIVATED CLOTTING TIME 802 sec TEST ED AT [place] [address] ([facility]) (test code = [place] C[place] [facility] [address]) [address] [id number] 15:26:00 Test Item Value Reference Range Interpretation Comments ACTIVATED CLOTTING TIME 884 sec TEST ED AT [place] [address] ([facility]) (test code = [place] [address]) [address] [id number] 15:26:00 Test Item Value Reference Range Interpretation Comments ACTIVATED CLOTTING TIME 621 sec TEST ED AT [place] [address] ([facility]) (test code = [place] [address]) [address] THROMBOELASTOGRAPH (TEG)2016-11-28 14:00:00 Test Item Value Reference Range Interpretation Comments TEG ACTIVATED CLOTTING TIME 8.7 minutes 4.0-7.0 H ([facility]) (test code = 1407) TEG FIBRINOGEN ACTIVITY (BEAKER) 73.1 degrees 61.0-73.0 H (test code = 1408) TEG PLT. AGGREGATION (AKER) 70.6 MM 55.0-65.0 H (test code = 1409) TGH ACTIVATED CLOTTING TIME 8.7 minutes 4.0-7.0 H ([facility]) (test code = 1411) TGH FIBRINOGEN ACTIVITY (BEAKER) 73.0 degrees 61.0-73.0 (test code = 1412) TGH PLT. AGGREGATION (BEAKER) 69.3 MM 55.0-65.0 H (test code = 1413) [id number] 13:28:00 Test Item Value Reference Range Interpretation Comments FIBRINOGEN LEVEL (AKER) (test 458 mg/dl 225-434 H code = 658) [id number] 13:28:00 Test Item Value Reference Range Interpretation Comments PARTIAL THROMBOPLASTIN TIME 39.7 seconds 22.5-36.0 H ([facility]) (test code = 760) PROTHROMBIN TIME/[id number] 13:27:00 Test Item Value Reference Range Interpretation Comments PROTIME (BEAKER) (test code = 17.4 seconds 11.7-14.7 H 759) INR (BEAKER) (test code = 370) 1.4 <=5.9 RECOMMENDED COUMADIN/WARFARIN INR THERAPY RANGESSTANDARD DOSE: 2.0 - 3.0 Includes: PROPHYLAXIS forvenous thrombosis, systemic embolization; TREATMENT for venous thrombosis and/or pulmonary embolus.HIGH RISK: Target INR is 2.5-3.5 for patients with mechanical heart valves.PLATELET [id number] 13:21:00 Test Item Value Reference Range Interpretation Comments PLATELET COUNT 151 K/CU MM 150-450 Discordant re sult (BEAKER) (test code compared to previous = 756) result; clinica l correlation req uired. CALCIUM, [id number] 13:06:00 Test Item Value Reference Range Interpretation Comments CALCIUM IONIZED (BEAKER) (test 1.07 mmol/L 1.12-1.27 L code = 698) PH, BLOOD (BEAKER) (test code = 7.31 1810) SODIUM NA-STAT [id number] 13:05:00 Test Item Value Reference Range Interpretation Comments SODIUM (BEAKER) (test code = 381) 135 meq/L 135-148 POTASSIUM-STAT [id number] 13:05:00 Test Item Value Reference Range Interpretation Comments POTASSIUM (BEAKER) (test code = 4.4 meq/L 3.6-5.5 379) BLOOD GAS, [id number] 13:05:00 Test Item Value Reference Range Interpretation [...] (test code = 1819) 67.0 % GLUCOSE-STAT [id number] 13:05:00 Test Item Value Reference Range Interpretation Comments GLUCOSE RANDOM (BEAKER) (test code 145 mg/dL 70-110 H = 652) HGB/HCT (H&H) - STAT [id number] 13:05:00 Test Item Value Reference Range Interpretation Comments HEMOGLOBIN (BEAKER) (test code = 10.2 g/dL 13.0-16.8 L 410) HEMATOCRIT (BEAKER) (test code = 30.0 % 40.0-50.0 L 411) BLOOD GAS, [id number] 12:26:00 Test Item Value Reference Range Interpretation [...] (test code = 1819) 65.0 % GLUCOSE-STAT [id number] 12:26:00 Test Item Value Reference Range Interpretation Comments GLUCOSE RANDOM (BEAKER) (test code 132 mg/dL 70-110 H = 652) HGB/HCT (H&H) - STAT [id number] 12:26:00 Test Item Value Reference Range Interpretation Comments HEMOGLOBIN (BEAKER) (test code = 10.6 g/dL 13.0-16.8 L 410) HEMATOCRIT (BEAKER) (test code = 31.0 % 40.0-50.0 L 411) SODIUM NA-STAT [id number] 12:25:00 Test Item Value Reference Range Interpretation Comments SODIUM (BEAKER) (test code = 381) 136 meq/L 135-148 POTASSIUM-STAT [id number] 12:25:00 Test Item Value Reference Range Interpretation Comments POTASSIUM (BEAKER) (test code = 4.4 meq/L 3.6-5.5 379) BLOOD GAS, [id number] 12:03:00 Test Item Value Reference Range Interpretation [...] (test code = 1819) 65.0 % POTASSIUM-STAT [id number] 12:00:00 Test Item Value Reference Range Interpretation Comments POTASSIUM (BEAKER) (test code = 4.7 meq/L 3.6-5.5 379) BLOOD GAS, [id number] 12:00:00 Test Item Value Reference Range Interpretation [...] (test code = 1819) 65.0 % GLUCOSE-STAT [id number] 12:00:00 Test Item Value Reference Range Interpretation Comments GLUCOSE RANDOM (BEAKER) (test code 140 mg/dL 70-110 H = 652) HGB/HCT (H&H) - STAT [id number] 12:00:00 Test Item Value Reference Range Interpretation Comments HEMOGLOBIN (BEAKER) (test code = 10.4 g/dL 13.0-16.8 L 410) HEMATOCRIT (BEAKER) (test code = 31.0 % 40.0-50.0 L 411) SODIUM NA-STAT [id number] 12:00:00 Test Item Value Reference Range Interpretation Comments SODIUM (BEAKER) (test code = 381) 131 meq/L 135-148 L PLATELET AGGREGATION: FUNCTION [id number] 11:08:00 Test Item Value Reference Range Interpretation Comments WEAK ADP 76 % 60-91 RESULT(BEAKER) (test code = 2135) PLATELET FUNCTION 60-100% indicates SCREEN INTERP (BEAKER) normal platelet (test code = 2173) function [id number] Mari Phelan MD (BEAKER) (test code = (electronic signature) 4050) PLATELET COUNT AGG 222 K/CU MM 150-450 (BEAKER) (test code = 2656) for patients on clopidogrel in past two weeksHEMOGLOBIN [id number] 08:57:00 Test Item Value Reference Range Interpretation Comments HEMOGLOBIN A1C (BEAKER) (test code = 5.0 % 4.3-6.1 368) CBC W/PLT COUNT & AUTO [id number] 05:54:00 Test Item Value Reference Range Interpretation [...] 0-1 PERCENT (BEAKER) (test code = 2801) [id number] 05:37:00 Test Item Value Reference Range Interpretation Comments PARTIAL THROMBOPLASTIN TIME 56.5 seconds 22.5-36.0 H (BEAKER) (test code = 760) BASIC METABOLIC [id number] 05:33:00 Test Item Value Reference Range Interpretation [...] NOT APPLICABLE FOR DIALYSIS PATIEN TS. PROTHROMBIN [id number] 05:33:00 Test Item Value Reference Range Interpretation Comments PROTIME (BEAKER) (test code = 13.3 seconds 11.7-14.7 759) INR (BEAKER) (test code = 370) 1.0 <=5.9 RECOMMENDED COUMADIN/WARFARIN INR THERAPY RANGESSTANDARD DOSE: 2.0 - 3.0 Includes: PROPHYLAXIS forvenous thrombosis, systemic embolization; TREATMENT for venous thrombosis and/or pulmonary embolus.HIGH RISK: Target INR is 2.5-3.5 for patients with mechanical heart valves.[id number] 19:22:00 Test Item Value Reference Range Interpretation Comments PARTIAL THROMBOPLASTIN TIME 37.4 seconds 22.5-36.0 H (BEAKER) (test code = 760) PROTHROMBIN TIME/[id number] 19:21:00 Test Item Value Reference Range Interpretation Comments PROTIME (BEAKER) (test code = 12.8 seconds 11.7-14.7 759) INR (BEAKER) (test code = 370) 1.0 <=5.9 RECOMMENDED COUMADIN/WARFARIN INR THERAPY RANGESSTANDARD DOSE: 2.0 - 3.0 Includes: PROPHYLAXIS forvenous thrombosis, systemic embolization; TREATMENT for venous thrombosis and/or pulmonary embolus.HIGH RISK: Target INR is 2.5-3.5 for patients with mechanical heart valves.[id number] 11:49:00 Test Item Value Reference Range Interpretation Comments PARTIAL THROMBOPLASTIN TIME 34.7 seconds 22.5-36.0 (BEAKER) (test code = 760) Prior to initiating heparinPLATELET [id number] 11:31:00 Test Item Value Reference Range Interpretation Comments PLATELET COUNT (BEAKER) (test 199 K/CU MM 150-450 code = 756) PLATELET AGGREGATION: FUNCTION [id number] 11:12:00 Test Item Value Reference Range Interpretation Comments WEAK ADP 90 % 60-91 RESULT(BEAKER) (test code = 2135) PLATELET FUNCTION 60-100% indicates SCREEN INTERP (BEAKER) normal platelet (test code = 2173) function [id number] Mari Phelan MD (BEAKER) (test code = (electronic signature) 6248) PLATELET COUNT AGG 200 K/CU MM 150-450 (BEAKER) (test code = 2656) HEMOGLOBIN [id number] 08:38:00 Test Item Value Reference Range Interpretation Comments HEMOGLOBIN A1C (BEAKER) (test code = 5.5 % 4.3-6.1 368) TROPONIN [id number] 08:35:00 Test Item Value Reference Range Interpretation Comments TROPONIN I (BEAKER) (test code = 0.40 ng/mL 0.00-0.03 HH [...] Range Interpretation Comments CREATINE KINASE TOTAL (BEAKER) 39 U/L 29-200 (test code = 380) CREATINE KINASE-MB (BEAKER) (test 1.6 ng/mL 0.0-6.6 code = 750) CREATINE KINASE-MB INDEX (BEAKER) 4.1 % (test code = 395) Effective 03/02/2014: CK-MB Reference Range ChangeNew: 0.0-6.6 Previous: 0.0-4.9CK-MB Reference Range:<6.7 Normal6.7-10.0 Borderline>10.0 AbnormalPOCT-GLUCOSE [id number] 08:23:00 Test Item Value Reference Range Interpretation Comments POC-GLUCOSE METER 104 mg/dL 70-110 TESTED AT [facility] 6720 (BEAKER) (test code = [place] 1538) [address] PROTHROMBIN [id number] 04:32:00 Test Item Value Reference Range Interpretation Comments PROTIME (BEAKER) (test code = 13.5 seconds 11.7-14.7 759) INR (BEAKER) (test code = 370) 1.0 <=5.9 RECOMMENDED COUMADIN/WARFARIN INR THERAPY RANGESSTANDARD DOSE: 2.0 - 3.0 Includes: PROPHYLAXIS forvenous thrombosis, systemic embolization; TREATMENT for venous thrombosis and/or pulmonary embolus.HIGH RISK: Target INR is 2.5-3.5 for patients with mechanical heart valves.[id number] 02:13:00 Test Item Value Reference Range Interpretation Comments PHOSPHORUS (BEAKER) (test code = 3.9 mg/dL 2.3-4.7 604) [id number] 02:13:00 Test Item Value Reference Range Interpretation Comments MAGNESIUM (BEAKER) (test code = 2.1 mg/dL 1.6-2.6 627) BASIC METABOLIC [id number] 02:13:00 Test Item Value Reference Range Interpretation [...] PATIEN TS. CBC W/PLT COUNT & AUTO [id number] 01:44:00 Test Item Value Reference Range Interpretation [...] 0-1 PERCENT (BEAKER) (test code = 2801) [id number] 01:31:00 Test Item Value Reference Range Interpretation [...] 2.5-3.5 for patients with mechanical heart valves.TROPONIN [id number] 00:46:00 Test Item Value Reference Range Interpretation [...] 0.0-6.6 Previous: 0.0-4.9CK-MB Reference Range:<6.7 Normal6.7-10.0 Borderline>10.0 SfzbqhwoMEERSOLAPO6743-21-13 06:58:00 Test Item Value Reference Range Interpretation Comments PHOSPHORUS (BEAKER) (test code = 3.7 mg/dL 2.3-4.7 604) [id number] 06:58:00 Test Item Value Reference Range Interpretation Comments MAGNESIUM (BEAKER) (test code = 1.9 mg/dL 1.6-2.6 627) BASIC METABOLIC [id number] 06:58:00 Test Item Value Reference Range Interpretation [...] S NOT APPLICABLE FOR DIALYSIS PATIEN TS. [id number] 06:36:00 Test Item Value Reference Range Interpretation Comments PHOSPHORUS (BEAKER) (test code = 4.1 mg/dL 2.3-4.7 604) [id number] 06:36:00 Test Item Value Reference Range Interpretation Comments MAGNESIUM (BEAKER) (test code = 2.0 mg/dL 1.6-2.6 627) BASIC METABOLIC [id number] 06:36:00 Test Item Value Reference Range Interpretation [...] S NOT APPLICABLE FOR DIALYSIS PATIEN TS. [id number] 15:50:00 Test Item Value Reference Range Interpretation Comments RPR SCREEN (BEAKER) (test code = Nonreactive Nonreactive 420) HEMOGLOBIN [id number] 10:29:00 Test Item Value Reference Range Interpretation Comments HEMOGLOBIN A1C (BEAKER) (test code = 5.4 % 4.3-6.1 368) VITAMIN B12 AND [id number] 09:21:00 Test Item Value Reference Range Interpretation Comments VITAMIN B12 (BEAKER) (test code = 335 pg/mL 213-816 774) FOLATE (BEAKER) (test code = 362) 36.6 ng/mL >=7.0 Effective 03/02/2014: Folate Reference Range ChangeNew: >=7.0 Previous: >=5.4CBC W/PLT COUNT & AUTO [id number] 08:15:00 Test Item Value Reference Range Interpretation [...] (test code = 417) 0.00TSH/FREE T4 IF [id number] 08:00:00 Test Item Value Reference Range Interpretation Comments THYROID STIMULATING HORMONE 1.39 uIU/mL 0.35-4.94 (BEAKER) (test code = 772) BASIC METABOLIC [id number] 07:26:00 Test Item Value Reference Range Interpretation [...] TO CALCU LATE m ESTIMATED GFR. LIPID [id number] 07:26:00 Test Item Value Reference Range Interpretation [...] 100-129 Borderline 130-159 High 160-189 Very High >=[id number] 07:25:00 Test Item Value Reference Range Interpretation Comments PHOSPHORUS (BEAKER) (test code = 3.8 mg/dL 2.3-4.7 604) [id number] 07:25:00 Test Item Value Reference Range Interpretation Comments MAGNESIUM (BEAKER) (test code = 2.0 mg/dL 1.6-2.6 627) URINALYSIS W/ [id number] 19:16:00 Test Item Value Reference Range Interpretation [...] 520) SOURCE(BEAKER) (test code = Urine, Voided 2933) BLOOD [id number] 11:00:00 Test Item Value Reference Range Interpretation Comments CULTURE (BEAKER) (test No growth in 5 days code = 1095) BLOOD [id number] 11:00:00 Test Item Value Reference Range Interpretation Comments CULTURE (BEAKER) (test No growth in 5 days code = 1095) BASIC METABOLIC [id number] 05:33:00 Test Item Value Reference Range Interpretation [...] ESTIMATED GFR. CBC W/PLT COUNT & AUTO [id number] 05:04:00 Test Item Value Reference Range Interpretation [...] 0.00-0.20 (test code = 417) 0.00VANCOMYCIN LEVEL, [id number] 21:36:00 Test Item Value Reference Range Interpretation Comments VANCOMYCIN TROUGH (BEAKER) (test 9.5 ug/mL 10.0-20.0 L code = 522) Please draw prior to 4th vancomycin doseVITAMIN B12 AND [id number] 04:33:00 Test Item Value Reference Range Interpretation Comments VITAMIN B12 (BEAKER) (test code = 599 pg/mL 213-816 774) FOLATE (BEAKER) (test code = 362) 7.7 ng/mL >=7.0 Effective 03/02/2014: Folate Reference Range ChangeNew: >=7.0 Previous: >=5.4HEPATIC FUNCTION [id number] 03:58:00 Test Item Value Reference Range Interpretation [...] = 12 U/L 6-55 347) BASIC METABOLIC [id number] 03:58:00 Test Item Value Reference Range Interpretation [...] ESTIMATED GFR. CBC W/PLT COUNT & AUTO [id number] 03:45:00 Test Item Value Reference Range Interpretation [...] K/ L 0.00-0.20 (test code = 417) 0.69BWAD5513-30-96 03:18:00 Test Item Value Reference Range Interpretation Comments PARTIAL THROMBOPLASTIN TIME 42.6 seconds 22.5-36.0 H (BEAKER) (test code = 760) PROTHROMBIN TIME/[id number] 03:17:00 Test Item Value Reference Range Interpretation Comments PROTIME (BEAKER) (test code = 13.0 seconds 11.7-14.7 759) INR (BEAKER) (test code = 370) 1.0 <=5.9 RECOMMENDED COUMADIN/WARFARIN INR THERAPY RANGESSTANDARD DOSE: 2.0 - 3.0 Includes: PROPHYLAXIS forvenous thrombosis, systemic embolization; TREATMENT for venous thrombosis and/or pulmonary embolus.HIGH RISK: Target INR is 2.5-3.5 for patients with mechanical heart valves.BASIC METABOLIC [id number] 02:48:00 Test Item Value Reference Range Interpretation [...] ESTIMATED GFR. CBC W/PLT COUNT & AUTO [id number] 02:47:00 Test Item Value Reference Range Interpretation [...] K/ L 0.00-0.20 (test code = 417) 0.47WCIAYXSQR0795-25-59 09:18:0014.0[facility] MtioqctGIFRXDLNU0565-48-17 09:18:00 110[facility] HphfhozZGGVMHFPQ6751-02-63 09:18:0026[facility]annCHEMISTRY 2011-09-29 09:18:009.1[facility] LpuufarENUEDHONB1109-94-06 09:18:90114Cnlqnewv AphsnzpZVUREGFHO9275-47-67 09:18:004.0[facility] EfarorzFJYVTHQVD2348-12-85 09:18:0011[facility] FzabcopASUYBQPPJ6063-95-08 09:18:25540Tytnnjcc [facility] NQUESRHDR7503-93-37 09:18:000.7[facility] WgproauNWOKQAOWES8469-18-25 09:18:0013.6 [facility] CzuxrwqUICLDAPVMB6739-78-88 09:18:0098.9[facility] HermannHEMATOLOGY 2011-09-29 09:18:0038.8[facility] XcqppxdSSASSPNJGE5745-35-61 09:18:009.7[facility] JidxdkxCPSMXBMGMP4684-39-87 09:18:24224Dsvkcsnq AbsugouZRCDYXLGJJ9096-80-28 09:18:0034.5[facility] NbgwyhrGJYHUVRPJX4077-24-25 09:18:00 Test Item Value Reference Range Interpretation Comments MCH (test code = MCH) 34.2 pg 27.0-31.0 H [facility] OaydefyLMWMZAEEGW3854-94-19 09:18:0013.4[facility] HermannHEMATOLOGY 2011-09-29 09:18:005.8[facility] EghbxvnFKUGTRDMOB4894-09-94 09:18:003.92[facility] UmzptgbTBSSDNIHSC6897-36-25 09:18:000.8[facility] VsfbrltCAGDBOETSS5122-72-50 09:18:002.4[facility] NaxkobwWSLBRWSBJD7278-29-87 09:18:000.0[facility] SXSTHMXKHJ2542-62-16 09:18:000.2[facility] IudwjkwAGQBBIIAQH8124-90-84 09:18:00 41.3[facility] XkzrfsiAAYHBHXXMM6132-16-26 09:18:0041.0[facility] HermannHEMATOLOGY 2011-09-29 09:18:003.9[facility] TedfjzcBCBDXVSPKP5148-58-21 09:18:002.4[facility] IyprazmSPCNJMKBFZ7736-33-03 09:18:000.3[facility] XzmjifpLKRRSKZYBX6525-38-77 09:18:0013.5[facility] HermannBEDSIDE GLUCOSE SSVDXSG4601-38-02 21:40:29525 [facility] UzndzlqITAGBELVN3174-98-60 10:14:0030[facility] HermannCHEMISTRY 2011-09-25 10:14:009.0[facility] PzzddhyVDGVMZKKL2484-02-87 10:14:0086[facility] ZbfxinkRCWHMTJDM1907-16-57 10:14:004.4[facility] BarasdjQYNNHBALZ5602-93-20 10:14:86630Nbsvmbnd ViivgupYSONFZTFR8647-44-70 10:14:0013[facility] EPWMYPCJS1957-54-20 10:14:000.7[facility] FjealsiZYCIYPZKS5502-59-41 10:14:47079 [facility] DcrosuyQPJMNMERI4716-31-77 10:14:0011.4[facility] HermannHEMATOLOGY 2011-09-25 10:14:000.5[facility] EhtcuwtAGFCQPYUOD5185-07-57 10:14:003.1[facility] GikvswdCDNFHVYHTY7987-29-66 10:14:003.1[facility] OdpxeuyHMKDIGMRMX8855-15-58 10:14:002.3[facility] OruspcqJFOEZONQRP8456-73-49 10:14:000.9[facility] FPNWPLPIFU2742-60-91 10:14:0048.3[facility] JkbwqtaJBZZSKAQWA0431-71-17 10:14:00 34.9[facility] MfaaqiiQRDKQDLGEL4060-39-63 10:14:001+ *ABN*(09/25/2011 05:14:00) [facility] HhmsoxjHXXFVEPFGQ0068-40-47 10:14:000.2[facility]annHEMATOLOGY 2011-09-25 10:14:0013.2[facility] AsjgltpQJYPUDBEKO3814-16-63 10:14:000.0[facility] WfslgrdSLAHXYVRCE9519-46-65 10:14:009.1[facility] CnfzwlzXJHIDOOHIE7009-33-93 10:14:41212Zvsgxluf LkvvuhwKIQBHYEDTT4199-80-58 10:14:0014.3[facility] JGNDHOKCUR8291-94-62 10:14:0034.1[facility] VtptsdzNZDOLMLTBQ0833-83-90 10:14:00 42.1[facility] UfmlzvnWAJEJAFVVU4459-37-75 10:14:0014.4[facility]annHEMATOLOGY 2011-09-25 10:14:006.4[facility] ZnxfmqoDBGBCOIUZT9863-35-93 10:14:0099.3[facility] TyrgtdcODSNPHPSCX3786-35-00 10:14:004.24[facility] YzhehhsJPQKBSQZPT7257-03-20 10:14:00 Test Item Value Reference Range Interpretation Comments MCH (test code = MCH) 33.9 pg 27.0-31.0 H [facility] EeiqcvaCELHGISES4224-95-94 09:04:0095[facility]annCHEMISTRY 2011-09-18 09:04:009[facility] PfessouDJZYAUSAO1523-12-92 09:04:000.6[facility] PugmtcnNITTDHQLI5816-22-21 09:04:67136Ixmgfxmo BthbaxiHYSILCJKI4680-11-14 09:04:004.1[facility] OmeugaeJAAQKTBLX8389-01-68 09:04:73309Vtpphrsm [place] AGTHLLZMS9071-79-32 09:04:0025[facility] NngvotoFZLDPODHF3969-81-63 09:04:009.0 [facility] FimdrmhPYGWLWJSM9927-65-83 09:04:0013.1[facility]annHEMATOLOGY 2011-09-18 09:04:001+ *ABN*(09/18/2011 04:04:00)[facility]annHEMATOLOGY 2011-09-18 09:04:000.9[facility] AtnsxrwPSNBKZKTZD6133-63-53 09:04:002.1[facility] TdyqoijSZUWIEVGTF6590-84-15 09:04:0054.6[facility] FfiheuoYBOJKFRGHT1365-50-01 09:04:000.2[facility] MgsttcbLQFRUUPDJT8308-70-92 09:04:002.3[facility] QUHVTCDCSA8381-74-07 09:04:0012.9[facility] NtqgpbwXYPIZQMRHR6647-78-66 09:04:00 29.9[facility] HhplxsuTQTWQAWSRU9681-51-43 09:04:000.3[facility]annHEMATOLOGY 2011-09-18 09:04:000.0[facility] QmhctgqHYUVJHNEXX5725-40-15 09:04:003.8[facility] FchmjlzDKRKNTPMXK3212-35-63 09:04:0043.5[facility] FucfnlpDMYOKQPIHY2548-90-32 09:04:0099.4[facility] MtheybeKTZBXSTTTE9130-02-76 09:04:0014.8[facility] OGYFEOMZMR6109-90-11 09:04:004.37[facility] RehxvsdPSINUGZNGS0206-17-25 09:04:00 6.9[facility] RhxojioKMWMAAAXIH3682-23-27 09:04:50048Odetdrsf HermannHEMATOLOGY 2011-09-18 09:04:0034.2[facility] AnnzdgmNAJTMXYIVV8956-27-21 09:04:009.1[facility] XwchmdcPWFCEMJOTF6170-68-36 09:04:0013.9[facility] ViwguybBEBBUCZDSL1945-30-27 09:04:00 Test Item Value Reference Range Interpretation Comments MCH (test code = MCH) 33.9 pg 27.0-31.0 H [facility] NdfujkxTTRKMGNLQL1113-03-72 13:25:00<1[facility]annURINALYSIS 2011-09-16 13:25:001[facility] BguuucaTGKZPHKUOD8549-72-54 13:25:00Few /LPF *NA*(09/16/2011 08:25:00)[facility] RvhtdreALTLKBMYHL8764-40-94 13:25:00Negative mg/dL *NA*(09/16/2011 08:25:00)[facility] YehbpqbTFOILNNYOP7952-32-52 13:25:00 Negative *NA*(09/16/2011 08:25:00)[facility] BinogrmNJRDBHHKNL4230-17-38 13:25:00 Negative (09/16/2011 08:25:00)[facility] EiktabbKJQACQZUKD3695-08-88 13:25:00 Negative (09/16/2011 08:25:00)[facility] XvzglkiQLDOQTQJDC1997-13-67 13:25:00 Negative (09/16/2011 08:25:00)[facility] AdvpkepPTPAIPSUSQ7539-08-01 13:25:00 Occasional /LPF *NA*(09/16/2011 08:25:00)[facility] LjgvunhEXYTXBGJOL5803-38-32 13:25:00Negative mg/dL *NA*(09/16/2011 08:25:00)[facility]annURINALYSIS 2011-09-16 13:25:00Negative mg/dL (09/16/2011 08:25:00)[facility] AUHPEMQMMY7831-95-72 13:25:00Yellow *NA*(09/16/2011 08:25:00)[facility] JUWAZPJXVO7771-27-43 13:25:005.5[facility] ZwcfrvsPIKMSLKDPB5707-85-54 13:25:00 1.017[facility] LahsdywOAVAVCNFYM6576-17-53 13:25:00Clear (09/16/2011 08:25:00) [facility] DlujcfyOJLMTZOFAA1376-85-62 08:42:00Few /LPF *NA*(09/15/2011 03:42:00) [facility] BvktolnCOEPYIHEHE0974-92-03 08:42:001[facility]annURINALYSIS 2011-09-15 08:42:00Negative (09/15/2011 03:42:00)[facility]ann[facility]INALYSIS 2011-09-15 08:42:00Negative (09/15/2011 03:42:00)[facility]YSIS 2011-09-15 08:42:00Negative (09/15/2011 03:42:00)[facility]YSIS 2011-09-15 08:42:005.5[facility] JaqesqzCAXCRNRKYN3766-55-29 08:42:00Negative mg/dL (09/15/2011 03:42:00)[facility] EvzoopeJULBVZSCKE2289-03-75 08:42:00Negative mg/dL *NA*(09/15/2011 03:42:00)[facility] GpldfmkJGTZKQTJBX5779-48-41 08:42:00 Negative mg/dL *NA*(09/15/2011 03:42:00)[facility] OpirecbIEHAETUTRQ2781-17-06 08:42:00Negative *NA*(09/15/2011 03:42:00)[facility] OyyvuawGPRZFZMSXX5868-40-42 08:42:00Yellow *NA*(09/15/2011 03:42:00)[facility] TluejebLYNTRGKDMD2976-54-92 08:42:00Slight *ABN*(09/15/2011 03:42:00)[facility] XbnctqhGHWIWWHVFM5554-79-39 08:42:001.012[facility] RdwodubYBIHSZQOZ7557-97-76 08:40:003.390[facility] [place] KYVGHZLEW2086-56-48 08:40:008.5[facility] UvqeklmYUCQUPDAD8819-00-73 08:40:0033 [facility] YppkvldYLLJIOGTA7138-46-04 08:40:003.390[facility] HermannCHEMISTRY 2011-09-15 08:40:006.4[facility] BnvfdenZTYCEOQUD6707-09-48 08:40:0014[facility] QkzjhvrTYFATHFNI4228-50-49 08:40:000.4[facility] EhfqvakUFNYGWOYB3078-33-31 08:40:0024[facility] AljiqazHWOKOWPJO9278-48-23 08:40:0081[facility] SCLVTQTAN6588-31-65 08:40:003.3[facility] GsdtpzvONEZXHFUU9271-17-25 08:40:001.1 [facility] ElxlwoiQVHCPRIBG4099-76-05 08:40:0014[facility] HermannCHEMISTRY 2011-09-15 08:40:003.1[facility] RecvvgeTTVUJUHNI4291-84-66 08:40:002.8[facility] BhrkklyHIQKLCCCAZ7510-21-39 08:40:00 Test Item Value Reference Range Interpretation Comments PTT (test code = PTT) 32.4 s 22.9-35.8 [facility]93-15 08:40:00 Test Item Value Reference Range Interpretation Comments PT (test code = PT) 13.0 s 12.0-14.7 [facility] CenterOkzmbcxVDQBEJYZKH1541-25-46 08:40:000.98[facility] Center[facility]
--- NOTE | 2020-01-23 18:19 | RAD REPORT ---
EXAM DESCRIPTION: Olivia Single View01/23/2020 5:53 pm CLINICAL HISTORY: Chest pain COMPARISON: None FINDINGS: Calcified granulomas are present within the lungs. The lungs appear clear of acute infiltrate. The heart is mildly enlarged. Postsurgical changes involve the chest. IMPRESSION: No acute abnormalities displayed
[2020-01-23 18:57] LABS: Protime INR 0.99
[2020-01-23 18:58] LABS: Absolute Lymphocytes (CBC) 2.4 K/uL (0.7-4.9); Basophils % 0.7 % (0-1.3); Lymphocytes % 35.8 % (15.3-44.8); RBC Red Blood Cell Count 4.42 M/uL (4.33-5.43)
[2020-01-23] MEDS ORDERED: ONDANSETRON 4 MG/2 ML VIAL ONE (19:08)
[2020-01-23 19:09] LABS: ALT/SGPT 12 U/L (12-78); Albumin 3.1 g/dL (3.4-5.0); Alkaline Phosphatase 62 U/L (45-117); BUN Blood Urea Nitrogen 17 mg/dL (7-18); Bicarbonate 28 mmol/L (21-32); Bilirubin Direct < 0.1 mg/dL (0-0.2); Bilirubin Total 0.1 mg/dL (0.2-1.0); Glucose Level 79 mg/dL (74-106); NT PRO-BNP 227 pg/mL (<125); Protein, Total 7.4 g/dL (6.4-8.2); Sodium Level 145 mmol/L (136-145); Troponin (Emerg Dept Use Only) < 0.02 ng/mL (0.0-0.045)
[2020-01-23] MEDS ORDERED: dexAMETHasone 4 MG/ML VIAL ONE (19:09)
[2020-01-23 19:11] LABS: AST/SGOT 13 U/L (15-37); Magnesium 2.2 mg/dL (1.8-2.4); Potassium 4.4 mmol/L (3.5-5.1)
--- NOTE | 2020-01-23 19:36 | EDPHYS ---
Physician Documentation [facility] Name: Bryan Graf Age: 69 yrs Sex: Male : 1950 Arrival Date: 01/23/2020 Time: 17:09 Bed 16 Private MD: Adam Botello H ED Physician Luis Eduardo Stover HPI: 01/22 18:22 This 69 yrs old Male presents to ER via Wheelchair with complaints of Arm snw Problem. 18:22 The patient or guardian complains of pain, that is chronic. The complaints affect the snw anterior aspect of right shoulder and right axilla. Context: The problem was sustained at an unknown location, resulted from unknown cause. Onset: The symptoms/episode began/occurred x 3 weeks. Treatment prior to arrival includes: no previous treatment. Associated signs and symptoms: Pertinent positives: pain, tingling, chest pain, sob. Severity of symptoms: At their worst the symptoms were moderate, in the emergency department the symptoms are unchanged. The patient has experienced similar episodes in the past. The patient has been recently seen by a physician: The patient has been recently seen at the [facility] Emergency Department, The patient has been recently been admitted at [facility], was discharged yesterday, for similar complaints, Negative nuclear stress test, negative serial troponin levels, PE study negative. . Pt with negative studies, discharged yesterday, pt on Oxycodone at home. . Historical: - Allergies: 17:17 PENICILLINS; ll1 17:17 Aspirin; ll1 - PMHx: 17:17 Chronic pain; CVA; Hypertension; Pneumonia; Seizures; swelling and pain to L lower leg; ll1 - PSHx: 17:17 Heart stents; CABG; ll1 - Immunization history:: Flu vaccine is up to date. - Social history:: Smoking status: Patient reports the use of cigarette tobacco products, smokes one-half pack cigarettes per day. ROS: 18:22 Constitutional: Negative for fever, chills, and weight loss, Eyes: Negative for injury, snw pain, redness, and discharge, ENT: Negative for injury, pain, and discharge, Neck: Negative for injury, pain, and swelling, Respiratory: Negative for shortness of breath, cough, wheezing, and pleuritic chest pain, Abdomen/GI: Negative for abdominal pain, nausea, vomiting, diarrhea, and constipation, Back: Negative for injury and pain, : Negative for injury, bleeding, discharge, and swelling, MS/Extremity: Negative for injury and deformity, Skin: Negative for injury, rash, and discoloration, Neuro: Negative for headache, weakness, numbness, tingling, and seizure, Psych: Negative for depression, anxiety, suicide ideation, homicidal ideation, and hallucinations. 18:22 Cardiovascular: Positive for chest pain, of the right clavicle and anterior aspect of right upper chest. Exam: 18:11 ECG was reviewed by the Attending Physician. snw 19:40 Constitutional: This is a well developed, well nourished patient who is awake, alert, snw and in no acute distress. Head/Face: Normocephalic, atraumatic. Eyes: Pupils equal round and reactive to light, extra-ocular motions intact. Lids and lashes normal. Conjunctiva and sclera are non-icteric and not injected. Cornea within normal limits. Periorbital areas with no swelling, redness, or edema. ENT: Nares patent. No nasal discharge, no septal abnormalities noted. Tympanic membranes are normal and external auditory canals are clear. Oropharynx with no redness, swelling, or masses, exudates, or evidence of obstruction, uvula midline. Mucous membranes moist. Neck: Trachea midline, no thyromegaly or masses palpated, and no cervical lymphadenopathy. Supple, full range of motion without nuchal rigidity, or vertebral point tenderness. No Meningismus. 19:40 Cardiovascular: Regular rate and rhythm with a normal S1 and S2. No gallops, murmurs, or rubs. Normal PMI, no JVD. No pulse deficits. Respiratory: Lungs have equal breath sounds bilaterally, clear to auscultation and percussion. No rales or wheezes noted. Positive for rhonchi bilaterally. No increased work of breathing, no retractions or nasal flaring. Abdomen/GI: Soft, non-tender, with normal bowel sounds. No distension or tympany. No guarding or rebound. No evidence of tenderness throughout. Back: No spinal tenderness. No costovertebral tenderness. Full range of motion. Skin: Warm, dry with normal turgor. Normal color with no rashes, no lesions, and no evidence of cellulitis. MS/ Extremity: Pulses equal, no cyanosis. Neurovascular intact. Full, normal range of motion. Neuro: Awake and alert, GCS 15, oriented to person, place, time, and situation. Cranial nerves II-XII grossly intact. Motor strength 5/5 in all extremities. Sensory grossly intact. Cerebellar exam normal. Normal gait. Psych: Awake, alert, with orientation to person, place and time. Behavior, mood, and affect are within normal limits. 19:40 Chest/axilla: Inspection: normal, Palpation: tenderness, that is mild, of the right clavicle, anterior aspect of right upper chest and right lateral anterior chest, that partially reproduces the patient's complaints. Vital Signs: 17:15 BP 93 / 64; Pulse 79; Resp 18; Temp 98.2; Pulse Ox 96% ; Weight 72.57 kg; Height 5 ft. ll1 8 in. (172.72 cm); Pain 8/10; 18:18 BP 112 / 78; snw 18:26 BP 112 / 78; Pulse 70; Resp 20 S; Pulse Ox 97% on R/A; jd3 19:58 BP 118 / 69; Pulse 75; Resp 20 S; Pulse Ox 96% on R/A; jd3 17:15 Body Mass Index 24.33 (72.57 kg, 172.72 cm) ll1 MDM: 17:28 Patient medically screened. nicolette 19:40 Data reviewed: vital signs, nurses notes. Data interpreted: Pulse oximetry: on room air snw is 97 %. Interpretation: normal. Counseling: I had a detailed discussion with the patient and/or guardian regarding: the historical points, exam findings, and any diagnostic results supporting the discharge/admit diagnosis, lab results, radiology results, the need for outpatient follow up, to return to the emergency department if symptoms worsen or persist or if there are any questions or concerns that arise at home. Special discussion: Based on the patient's history, exam, and Dx evaluation, there is no indication for emergent intervention or inpatient Tx. It is understood by the patient/guardian that if the Sx's persist or worsen they need to return immediately for re-evaluation. Based on the history and exam findings, there is no indication for further emergent testing or inpatient evaluation. I discussed with the patient/guardian the need to see the buildings painter for further evaluation of the symptoms. I discussed with the patient/guardian the need to see the primary care provider for further evaluation of the symptoms. 01/22 17:27 Order name: Basic Metabolic Panel snw 01/22 17:27 Order name: CBC with Diff; Complete Time: 19:11 snw 01/22 17:27 Order name: LFT's snw 01/22 17:27 Order name: Magnesium; Complete Time: 19:33 snw 01/22 17:27 Order name: NT PRO-BNP; Complete Time: 19:33 snw 01/22 17:27 Order name: PT-INR; Complete Time: 19:11 snw 01/22 17:27 Order name: Troponin (emerg Dept Use Only); Complete Time: 19:33 snw 01/22 17:27 Order name: XRAY Chest (1 view); Complete Time: 18:21 snw 01/22 17:27 Order name: EKG; Complete Time: 17:28 snw 01/22 17:28 Order name: Basic Metabolic Panel; Complete Time: 19:33 EDMS 01/22 17:28 Order name: Liver (Hepatic) Function; Complete Time: 19:33 EDMS 01/22 17:27 Order name: Cardiac monitoring; Complete Time: 18:06 snw 01/22 17:27 Order name: EKG - Nurse/Tech; Complete Time: 17:48 snw 01/22 17:27 Order name: IV Saline Lock; Complete Time: 18:19 snw 01/22 17:27 Order name: Labs collected and sent; Complete Time: 18:19 snw 01/22 17:27 Order name: O2 Per Protocol; Complete Time: 18:06 snw 01/22 17:27 Order name: O2 Sat Monitoring; Complete Time: 18:06 snw EC:11 Rate is 75 beats/min. Rhythm is regular. ME interval is normal. QRS interval is normal. snw QT interval is normal. No Q waves. T waves are Normal. No ST changes noted. Clinical impression: NSR w/ Non-specific ST/T Changes. Administered Medications: 19:02 Drug: Decadron - Dexamethasone 10 mg Route: IVP; Site: right forearm; jd3 20:00 Follow up: Response: No adverse reaction jd3 19:46 Drug: morphine 4 mg Route: IM; Site: left deltoid; jd3 20:13 Follow up: Response: No adverse reaction; RASS: Alert and Calm (0) jd3 Disposition: 01/23 18:37 Co-signature as Attending Physician, Luis Eduardo Stover MD I agree with the assessment and nicolette plan of care. Disposition: 01/23/20 19:36 Discharged to Home. Impression: Chronic pain, not elsewhere classified, Chest pain, unspecified. - Condition is Stable. - Discharge Instructions: Nonspecific Chest Pain, Chest Wall Pain, Rehydration, Adult, Heat Therapy. - Prescriptions for Prednisone 20 mg Oral Tablet - take 2 tablet by ORAL route once daily for 5 days; 10 tablet. Pepcid 20 mg Oral Tablet - take 1 tablet by ORAL route once daily; 20 tablet. - Medication Reconciliation Form, Thank You Letter, Antibiotic Education, Prescription Opioid Use form. - Follow up: Adam Botello DO; When: 1 - 2 days; Reason: Recheck today's complaints, Continuance of care, Re-evaluation by your physician. Signatures: Dispatcher [employer] [facility] Luis Eduardo Stover MD MD cha Waters, Shelly, MANAGER FRONT OFFICE-C MANAGER FRONT OFFICE-Csnw Alfredo Mead RN RN jCarmen Cordon RN RN ll1 Corrections: (The following items were deleted from the chart) 01/22 17:35 17:28 D-DIMER+COAG.LAB.BRZ ordered. [facility] 20:14 19:36 01/23/2020 19:36 Discharged to Home. Impression: Chronic pain, not elsewhere jd3 classified; Chest pain, unspecified. Condition is Stable. Forms are Medication Reconciliation Form, Thank You Letter, Antibiotic Education, Prescription Opioid Use. Follow up: Adam Botello; When: 1 - 2 days; Reason: Recheck today's complaints, Continuance of care, Re-evaluation by your physician. snw
--- NOTE | 2020-01-23 19:36 | ER ---
Nurse's Notes [facility] Name: Bryan Graf Age: 69 yrs Sex: Male : 1950 Arrival Date: 01/23/2020 Time: 17:09 Bed 16 Private MD: Adam Botello H Diagnosis: Chronic pain, not elsewhere classified;Chest pain, unspecified Presentation: 01/22 17:15 Chief complaint: Patient states: CP and SOB since 4 am. Right hand feels numb. Pain to ll1 right shoulder area also. States he was just released from the 2nd floor yesterday. Coronavirus screen: Client denies travel out of the [place] in the last 14 days. difficulty breathing, At this time, the client does not indicate any symptoms associated with coronavirus-19. The client reports previous COVID testing was negative. Ebola Screen: Patient denies travel to an Ebola-affected area in the 21 days before illness onset. Initial Sepsis Screen: Does the patient meet any 2 criteria? No. Patient's initial sepsis screen is negative. Does the patient have a suspected source of infection? Yes: Other: chest pain/SOB. Risk Assessment: Do you want to hurt yourself or someone else? Patient reports no desire to harm self or others. Onset of symptoms was January 23, 2020. 17:15 Method Of Arrival: Wheelchair ll1 17:15 Acuity: GELACIO 2 ll1 Historical: - Allergies: 17:17 PENICILLINS; ll1 17:17 Aspirin; ll1 - PMHx: 17:17 Chronic pain; CVA; Hypertension; Pneumonia; Seizures; swelling and pain to L lower leg; ll1 - PSHx: 17:17 Heart stents; CABG; ll1 - Immunization history:: Flu vaccine is up to date. - Social history:: Smoking status: Patient reports the use of cigarette tobacco products, smokes one-half pack cigarettes per day. Screenin:26 Abuse screen: Denies threats or abuse. Nutritional screening: No deficits noted. jd3 Tuberculosis screening: No symptoms or risk factors identified. Fall Risk IV access (20 points). Ambulatory Aid- Crutches/Cane/Walker (15 pts). Gait- Weak (10 pts.). Total Thacker Fall Scale indicates High Risk Score (45 or more points). Fall prevention measures have been instituted. Side Rails Up X 2 Placed Close to Nursing Station Frequent Obs/Assessments Occuring. Assessment: 18:06 General: Appears in no apparent distress. uncomfortable, Behavior is calm, cooperative, jd3 appropriate for age. Pain: Complains of pain in chest Quality of pain is described as sharp. Neuro: Level of Consciousness is awake, alert, obeys commands, Oriented to person, place, time, situation, Reports numbness in right arm off and on since 0400 today. Cardiovascular: Reports chest pain, shortness of breath, Capillary refill < 3 seconds Patient's skin is warm and dry. Rhythm is regular. Respiratory: Reports shortness of breath at rest Airway is patent Respiratory effort is labored, shallow, Respiratory pattern is regular, symmetrical. GI: No signs and/or symptoms were reported involving the gastrointestinal system. : No signs and/or symptoms were reported regarding the genitourinary system. EENT: No signs and/or symptoms were reported regarding the EENT system. Derm: Skin is intact, Skin is dry, Skin is normal, Skin temperature is warm. 19:10 Reassessment: Patient appears in no apparent distress at this time. No changes from jd3 previously documented assessment. Patient and/or family updated on plan of care and expected duration. Pain level reassessed. Patient is alert, oriented x 3, equal unlabored respirations, skin warm/dry/pink. 19:58 Reassessment: Patient appears in no apparent distress at this time. Patient and/or jd3 family updated on plan of care and expected duration. Pain level reassessed. Patient is alert, oriented x 3, equal unlabored respirations, skin warm/dry/pink. pt called for ride for discharge, awaiting ride. Vital Signs: 17:15 BP 93 / 64; Pulse 79; Resp 18; Temp 98.2; Pulse Ox 96% ; Weight 72.57 kg; Height 5 ft. ll1 8 in. (172.72 cm); Pain 8/10; 18:18 BP 112 / 78; snw 18:26 BP 112 / 78; Pulse 70; Resp 20 S; Pulse Ox 97% on R/A; jd3 19:58 BP 118 / 69; Pulse 75; Resp 20 S; Pulse Ox 96% on R/A; jd3 17:15 Body Mass Index 24.33 (72.57 kg, 172.72 cm) ll1 ED Course: 17:09 Patient arrived in ED. mr 17:09 Adam Botello DO is Private Physician. mr 17:16 Triage completed. ll1 17:17 Arm band placed on Patient placed in an exam room, on a stretcher. ll1 17:27 Albertina Gallegos FNP-C is [facility]. snw 17:27 Luis Eduardo Stover MD is Attending Physician. snw 17:53 XRAY Chest (1 view) In Process Unspecified. EDMS 18:06 Alfredo Mead, RN is Primary Nurse. jd3 18:19 Inserted saline lock: 20 gauge in right forearm, using aseptic technique. Blood jd3 collected. 18:26 Patient has correct armband on for positive identification. Bed in low position. Call jd3 light in reach. Side rails up X 1. naturalist on. Pulse ox on. NIBP on. 19:34 Adam Botello DO is Referral Physician. snw 20:11 No provider procedures requiring assistance completed. IV discontinued, intact, jd3 bleeding controlled, No redness/swelling at site. Pressure dressing applied. Administered Medications: 19:02 Drug: Decadron - Dexamethasone 10 mg Route: IVP; Site: right forearm; jd3 20:00 Follow up: Response: No adverse reaction jd3 19:46 Drug: morphine 4 mg Route: IM; Site: left deltoid; jd3 20:13 Follow up: Response: No adverse reaction; RASS: Alert and Calm (0) jd3 Outcome: 19:36 Discharge ordered by . snw 20:12 Discharged to home via wheelchair, with family. jd3 20:12 Condition: stable 20:12 Discharge instructions given to patient, Instructed on discharge instructions, follow up and referral plans. medication usage, Demonstrated understanding of instructions, follow-up care, medications, Prescriptions given X 2. 20:14 Patient left the ED. jd3 Signatures: Dispatcher [employer] EDMS Albertina Gallegos FNP-C FNP-[place] Catherine Callahan Alfredo Mead, RN RN jd3 Carmen Zuniga RN RN ll1 Corrections: (The following items were deleted from the chart) 17:25 17:15 Chief complaint: Patient states: CP and SOB since 4 am. Right hand feels numb. ll1 Pain to right shoulder area also. ll1
[2020-01-23] MEDS ORDERED: MORPHINE 4 MG/ML SYR ONE (19:53)
[2020-01-23 21:06] VITALS: TEMP 98.2
[2020-01-23 21:18] VITALS: BP 118/69; O2SAT 96
--- NOTE | 2020-01-25 07:45 | EKG ---
Test Date: 2020-01-23 Test Time: 17:45:51 [place] Tender: PEDRO MEASUREMENT RESULTS: Intervals: Rate: 75 VT: 180 QRSD: 94 QT: 390 QTc: 435 [place]: P: 62 VT: 180 QRS: -37 T: 52 INTERPRETIVE STATEMENTS: Normal sinus rhythm Left axis deviation Abnormal ECG Compared to ECG 01/21/2020 17:45:57 Left-axis deviation now present Sinus bradycardia no longer present ST (T wave) deviation no longer present Possible ischemia no longer present Electronically Signed On 01-25-20 07:43:13 CDT by Manuelito Nolan
== END 2020-01-23 20:14 | disposition home or self-care (01) ==
LOC: ER 17:07
DX: G89.29 Other chronic pain (principal); I10 Essential (primary) hypertension; F17.210 Nicotine dependence, cigarettes, uncomplicated; Z88.0 Allergy status to penicillin; Z88.6 Allergy status to analgesic agent; Z95.818 Presence of other cardiac implants and grafts
CPT/HCPCS: 93005; 85025; 80048; 36415; 83735; 85610; 80076; 84484; 83880; 71045; 96372; 96374; 99284; J1100; J2405

== ENCOUNTER 2020-02-25 15:47 | Emergency (ER) | payer OTHER ==
--- OUTSIDE RECORDS SUMMARY | 2020-02-25 15:49 | XMS REPORT | Clinical Summary ---
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
--- OUTSIDE RECORDS SUMMARY | 2020-02-25 15:50 | XMS REPORT | Continuity of Care Document ---
:1950 Author Organization [facility] Care Team Providers Name Role Phone [facility] Unavailable Un available Problems Problem Status Onset Classification Date Comments Sourc e Date Reported CVA Active 09/13/19 [facility] Rehabilita tion Dysarthria Active Problem 10/03/2011 [facility] Weakness Active Problem 10/03/2011 [facility] CVA Active Rehabilita tion Medications Medication Details [...] mg, 1 tab, PO No [place] [facility] Route: PO, Drug Longer 012 Medical form: TAB, Active Center Bedtime, Start date: 09/21/11 21:00:00, Duration: 30 day, Stop date: 10/20/11 21:00:00 Percocet 5/325 1 tab, Route: PO, PO No [place] [facility] oral tablet Drug Form: TAB, Longer 012 Medi melissa BID-10-24, Start Active Center date: 09/21/11 9:11:00, Duration: 30 day, Stop date: 10/21/11 7:00:00 Plavix 75 mg, 1 tab, PO No [place] [facility] Route: PO, Drug Longer 012 Medical [...] 5 mg, 1 tab, PO No [place] [facility] Route: PO, Drug Longer 012 Medical form: TAB, Active Center Bedtime, PRN Insomnia, Start date: 09/14/11 22:49:00, Duration: 30 day, Stop date: 10/14/11 22:48:00 Keppra 750 mg 750 mg, 3 tab, PO No [place] [facility] oral tablet Route: PO, Drug Longer [...] 100 mg, 1 cap, PO No [place] [facility] oral capsule Route: PO, Drug Longer [...] ource type Reported aspirin drug Allergy Active [facility] [place] Allergy Active [facility] [place] penicillins drug Allergy Active [facility] Immunizations No Data Provided for This Section Results Order Name Results Value Reference Date Interpretation Comments [place] [facility] [facility] CHEMISTRY AGAP 14.0 10.0 - 09/28 Normal [place] 20.0 [facility] CHEMISTRY Chloride Lvl 110 95 - 109 09/28 [facility] CHEMISTRY CO2 26 24 - 32 09/28 Normal [facility] CHEMISTRY Calcium Lvl 9.1 8.5 - 10.5 09/28 Normal [facility] CHEMISTRY Sodium Lvl 146 135 - 145 09/28 [facility] CHEMISTRY Potassium Lvl 4.0 3.5 - 5.1 09/28 Normal [facility] CHEMISTRY BUN 11 7 - 22 09/28 Normal Medical Center CHEMISTRY Glucose Lvl 107 70 - 99 09/28 [place] <sup>2</sup>I T nterpretive Medical Data: Adult Center reference range values reflect the clinical guidelines of the [place] [employer]. CHEMISTRY Creatinine 0.7 0.5 - 1.4 09/28 Normal [facility] l /2011 Medical Center HEMATOLOGY RDW 13.6 11.5 - 09/28 Normal [facility] 14.5 Medical Center HEMATOLOGY MCV 98.9 80.0 - 09/28 [facility] [place] 94.0 Medical Center HEMATOLOGY Hct 38.8 42.0 - 09/28 LOW [place] 54.0 /2011 Medical Center HEMATOLOGY MPV 9.7 7.4 - 10.4 09/28 Normal [facility] HEMATOLOGY Platelet 188 133 - 450 09/28 Normal [facility] [place] HEMATOLOGY MCHC 34.5 32.0 - 09/28 Normal [place] 36.0 /2011 Medical Center HEMATOLOGY MCH 34.2 27.0 - 09/28 [facility] [place] 31.0 /2011 Medical Center HEMATOLOGY Hgb 13.4 14.0 - 09/28 LOW [place] 18.0 /2011 Medical Center HEMATOLOGY WBC 5.8 3.7 - 10.4 09/[address] [facility] HEMATOLOGY RBC 3.92 4.70 - 09/28 LOW [place] 6.10 Medical Center HEMATOLOGY Monocytes # 0.8 0.0 - 0.8 09/28 [facility] HEMATOLOGY Lymphocytes # 2.4 1.0 - 5.5 09/[address] [place] [facility] HEMATOLOGY Basophils # 0.0 0.0 - 0.2 09/[address] [place] [facility] HEMATOLOGY Eosinophils # 0.2 0.0 - 0.5 09/[address] [place] [facility] HEMATOLOGY Lymphocytes 41.3 20.0 - 09/28 HI [place] 40.0 Medical Center HEMATOLOGY Segs 41.0 45.0 - 09/28 LOW [place] 75.0 [facility] HEMATOLOGY Eosinophils 3.9 0.0 - 4.0 09/[address] [facility] HEMATOLOGY Segs-Bands # 2.4 1.5 - 8.1 09/[address] [facility] HEMATOLOGY Basophils 0.3 0.0 - 1.0 09/[address] [facility] HEMATOLOGY Monocytes 13.5 2.0 - 12.0 09/[address] [facility] BEDSIDE Comment1 Notify 09/25 NA [facility] GLUCOSE RN/ Medical TESTING Center BEDSIDE Gluc POC 121 70 - 99 09/25 [place] <sup>1</sup>I [facility] GLUCOSE Lifscn nterpretive Medical TESTING Data: Center Upper Reportable Limit: 200 mg/dL. CHEMISTRY CO2 30 24 - 32 09/[address] [facility] CHEMISTRY Calcium Lvl 9.0 8.5 - 10.5 09/24 [facility] CHEMISTRY Glucose Lvl 86 70 - 99 09/24 Normal <sup>3</sup>I T ex nterpretive Medical Data: Adult Center reference range values reflect the clinical guidelines of the [place] [employer]. CHEMISTRY Potassium Lvl 4.4 3.5 - 5.1 09/[address] [place] [facility] CHEMISTRY Chloride Lvl 107 95 - 109 09/[address] [facility] CHEMISTRY BUN 13 7 - 22 09/24 Normal Medical Center CHEMISTRY Creatinine 0.7 0.5 - 1.4 09/24 Normal [place] [facility] CHEMISTRY Sodium Lvl 144 135 - 145 09/[address] [facility] CHEMISTRY AGAP 11.4 10.0 - 09/24 Normal [place] 20.0 [facility] [place] HEMATOLOGY Basophils 0.5 0.0 - 1.0 09/24 Normal [facility] [place] HEMATOLOGY Eosinophils 3.1 0.0 - 4.0 09/[address] [facility] HEMATOLOGY Segs-Bands # 3.1 1.5 - 8.1 09/24 Normal [facility] [place] HEMATOLOGY Lymphocytes # 2.3 1.0 - 5.5 09/24 Normal [facility] HEMATOLOGY Monocytes # 0.9 0.0 - 0.8 09/[address] [facility] HEMATOLOGY Segs 48.3 45.0 - 09/24 Normal [place] 75.0 [facility] [place] HEMATOLOGY Lymphocytes 34.9 20.0 - 09/24 Normal [place] [address] [facility] HEMATOLOGY Macrocyte 1+ None Seen 09/24 ABN *ABN* /2011 Medical (09/25/2011 05:14:00) Ce nter HEMATOLOGY Eosinophils # 0.2 0.0 - 0.5 09/[address] [facility] HEMATOLOGY Monocytes 13.2 2.0 - 12.0 09/[address] [facility] HEMATOLOGY Basophils # 0.0 0.0 - 0.2 09/[address] [facility] HEMATOLOGY MPV 9.1 7.4 - 10.4 09/24 Normal [facility] HEMATOLOGY Platelet 183 133 - 450 09/24 Normal [facility] [place] HEMATOLOGY RDW 14.3 11.5 - 09/24 Normal [place] 14.5 [facility] [place] HEMATOLOGY MCHC 34.1 32.0 - 09/24 Normal [place] 36.0 [facility] [place] HEMATOLOGY Hct 42.1 42.0 - 09/24 Normal [place] 54.0 [facility] [place] HEMATOLOGY Hgb 14.4 14.0 - 09/24 Normal [place] 18.0 Medical Center HEMATOLOGY WBC 6.4 3.7 - 10.4 09/24 Normal Medical [facility] HEMATOLOGY MCV 99.3 80.0 - 06/12 HI [place] 94.0 /2011 Medical Center HEMATOLOGY RBC 4.24 4.70 - 09/24 LOW [place] 6.10 /2011 Medical Center HEMATOLOGY MCH 33.9 27.0 - 09/24 [facility] [place] 31.0 /2011 Medical Center CHEMISTRY Glucose Lvl 95 70 - 99 09/17 Normal <sup>4</sup>I [place] /2011 nterpretive Medical Data: Adult Center reference range values reflect the clinical guidelines of the [place] [employer]. CHEMISTRY BUN 9 7 - 22 06 Normal [facility] CHEMISTRY Creatinine 0.6 0.5 - 1.4 [...] Lvl 9.0 8.5 - 10.5 09/17 Normal [facility] CHEMISTRY AGAP 13.1 10.0 - 09/17 Normal [place] 20.0 Medical Center HEMATOLOGY Macrocyte 1+ None Seen 09/17 [facility] [place] *ABN* /2011 Medical (09/18/2011 04:04:00) Ce nter HEMATOLOGY Monocytes # 0.9 0.0 - 0.8 09/17 [facility] [place] [facility] HEMATOLOGY Lymphocytes # 2.1 1.0 - 5.5 09/17 [place] [facility] HEMATOLOGY Segs 54.6 45.0 - 06/05 Normal [place] 75.0 [facility] Center HEMATOLOGY Eosinophils # 0.2 0.0 - 0.5 09/17 [place] [facility] HEMATOLOGY Eosinophils 2.3 0.0 - 4.0 09/17 [facility] [place] [facility] HEMATOLOGY Monocytes 12.9 2.0 - 12.0 09/17 [facility] HEMATOLOGY Lymphocytes 29.9 20.0 - 06/05 Normal [place] 40.0 [facility] Center HEMATOLOGY Basophils 0.3 0.0 - 1.0 09/17 Normal [facility] HEMATOLOGY Basophils # 0.0 0.0 - 0.2 / [place] [facility] [place] HEMATOLOGY Segs-Bands # 3.8 1.5 - 8.1 09/17 Normal [place] [facility] HEMATOLOGY Hct 43.5 42.0 - 09/17 Normal [place] 54.0 /[address] [facility] HEMATOLOGY MCV 99.4 80.0 - / HI [place] 94.0 /[address] [facility] HEMATOLOGY Hgb 14.8 14.0 - 09/17 Normal [facility] 18.0 /[address] [facility] HEMATOLOGY RBC 4.37 4.70 - 06/ LOW [facility] 6.10 /[address] [facility] HEMATOLOGY WBC 6.9 3.7 - 10.4 09/[address] [facility] HEMATOLOGY Platelet 178 133 - 450 09/[address] [facility] HEMATOLOGY MCHC 34.2 32.0 - 09/17 Normal [facility] 36.0 /[address] [facility] HEMATOLOGY MPV 9.1 7.4 - 10.4 09/[address] [facility] HEMATOLOGY RDW 13.9 11.5 - 09/17 Normal [facility] 14.5 /[address] [facility] HEMATOLOGY MCH 33.9 27.0 - 05 [place] [facility] 31.0 /[address] [facility] Microbiolog Culture: 09/15 [facility] y Urine /[address] [facility] URINALYSIS UA 0.1 - 1.0 09/15 NA [facility] Urobilinogen /[address] [facility] URINALYSIS UA WBC <1 0 - 5 09/15 Normal [facility] URINALYSIS UA RBC 1 0 - 2 09/[address] [facility] URINALYSIS UA Mucus Few /LPF None Seen 09/15 NA [facility] Medical (09/16/2011 08:25:00) Ce nter URINALYSIS UA Ketones Negative mg/dL Negative 09/15 NA [facility] * Medical (09/16/2011 08:25:00) Ce nter URINALYSIS UA Bili Negative Negative 09/15 NA [facility] * Medical (09/16/2011 08:25:00) Ce nter URINALYSIS UA Blood Negative Negative 09/15 Normal [facility] (09/16/2011 08:25:00) /2011 [facility] URINALYSIS UA Nitrite Negative Negative 09/15 Normal [facility] (09/16/2011 08:25:00) Tn dical Center URINALYSIS UA Leuk Est Negative Negative 09/15 Normal [facility] (09/16/2011 08:25:00) Me dical Center URINALYSIS UA Sq Epi Occasional /LPF Few 09/15 NA [facility] Medical (09/16/2011 08:25:00) Ce nter URINALYSIS UA Glucose Negative mg/dL Negative 09/15 NA Medical (09/16/2011 08:25:00) Ce nter URINALYSIS UA Protein Negative mg/dL Negative 09/15 Normal [facility] (09/16/2011 08:25:00) Tn dical Center URINALYSIS UA Color Yellow Yellow 09/15 NA [facility] Medical (09/16/2011 08:25:00) Ce nter URINALYSIS UA pH 5.5 5.0 - 8.0 09/15 Normal Medical Center URINALYSIS UA Spec Grav 1.017 <=1.030 09/15 Normal [facility] URINALYSIS UA Turbidity Clear Clear 09/15 Normal [facility] (09/16/2011 08:25:00) Tn dical Center URINALYSIS UA Mucus Few /LPF None Seen 09/14 NA [facility] Medical (09/15/2011 03:42:00) Ce nter URINALYSIS UA RBC 1 0 - 2 09/14 Normal Medical [facility] URINALYSIS UA Blood Negative Negative 09/14 Normal [facility] (09/15/2011 03:42:00) Me dical Center URINALYSIS UA Nitrite Negative Negative 09/14 Normal [facility] (09/15/2011 03:42:00) Me dical Center URINALYSIS UA Leuk Est Negative Negative 09/14 Normal [facility] (09/15/2011 03:42:00) Me dical Center URINALYSIS UA pH 5.5 5.0 - 8.0 09/14 Normal Medical [facility] URINALYSIS UA Protein Negative mg/dL Negative 09/14 Normal [facility] (09/15/2011 03:42:00) Me dical Center URINALYSIS UA Glucose Negative mg/dL Negative 09/14 [facility] 03:42:00[facility] Ce nter URINALYSIS UA Ketones Negative mg/dL Negative [facility] 03:42[facility] Ce nter URINALYSIS UA Bili Negative Negative 09/14 [facility]09/[facility] 03:42:00) Ce nter URINALYSIS UA Color Yellow Yellow 09/14 [facility] (09/[facility]2011 03:42:00) Ce nter URINALYSIS UA Turbidity Slight Clear 09/14 ABN ABN Medical (09/15/2011 03:42:00) Ce nter URINALYSIS UA Spec Grav 1.012 <=1.030 09/[address] [facility] URINALYSIS UA Sq Epi None Seen 09/14 [facility] URINALYSIS UA 0.1 - 1.0 09/14 NA [facility] Urobilinogen [facility] Microbiolog Culture: 09/14 [facility] y [facility] CHEMISTRY TSH 3.390 0.360 - 09/14 Normal [facility] [address] [facility] CHEMISTRY T4 8.5 4.7 - 13.3 09/[address] [facility] CHEMISTRY T3 Uptake 33 31 - 39 09/[address] [facility] CHEMISTRY TSH 3.390 0.360 - 09/14 Normal [facility] [address] [facility] CHEMISTRY Total Protein 6.4 6.4 - 8.4 09/14 Normal [facility] [place] CHEMISTRY AST 14 0 - 37 09/[address] [facility] CHEMISTRY Bili Total 0.4 0.2 - 1.3 09/[address] [facility] CHEMISTRY ALT 24 0 - 65 09/[address] [facility] CHEMISTRY Alk Phos 81 39 - 136 09/[address] [facility] CHEMISTRY Albumin Lvl 3.3 3.5 - 5.0 09/[address] [facility] CHEMISTRY A/G Ratio 1.1 0.7 - 1.6 09/[address] [facility] CHEMISTRY B/C Ratio 14 6 - 25 09/[address] [facility] CHEMISTRY Globulin 3.1 2.0 - 4.0 06/ Normal [facility] CHEMISTRY FTI 2.8 06/ NA [facility] HEMATOLOGY PTT 32.4 22.9 - 06 Normal <sup>6</sup>I [place] 35.8 /2011 nterpretive Medical Data: [facility] Therapeutic Range: 57 - 92 Seconds HEMATOLOGY PT 13.0 12.0 - 06 Normal [facility] [address] [facility] HEMATOLOGY INR 0.98 0.85 - 06 [...] Comments Source Systolic (mm Hg) 119 10/01/2011 [facility] Respitory Rate 20 10/01/2011 [facility] Heart Rate 53 10/01/2011 [facility] Temperature Oral (F) 97.6 F 10/01/2011 [facility] Diastolic (mm Hg) 66 10/01/2011 [facility] Diastolic (mm Hg) 76 10/01/2011 [facility] Respitory Rate 20 10/01/2011 [facility] Heart Rate 60 10/01/2011 [facility] [place] [facility] Systolic (mm Hg) 125 10/01/2011 [facility] Temperature Oral (F) 98.1 F 10/01/2011 [facility] Systolic (mm Hg) 126 09/30/2011 [facility] Diastolic (mm Hg) 82 09/30/2011 [facility] Heart Rate 52 09/30/2011 [facility] [place] [facility] Respitory Rate 18 09/30/2011 [facility] Temperature Oral (F) 97.8 F 09/30/2011 [facility] Height 172.72 cm 09/15/2011 [facility] Weight 76.364 09/15/2011 [facility] Encounters Location Location Encounter Encounter Reason Attending ADM DC Stat us Source Details Type Number For Provider Date Date Visit [id number] [place] 09/13 09/30 Discharge [facility] d Rehabilit ation Procedures No Data [...]
--- OUTSIDE RECORDS SUMMARY | 2020-02-25 15:54 | XMS REPORT | Continuity of Care Document ---
:1950 Author Organization [facility] t Address [address] [place] [address] Care Team Providers Name Role Phone Rebecca [...] [facility] - status status 00:00: Medical 00 [place] Ptosis, Ptosis, Disease Active [facility] left left 8-25 [facility] - 00:00: Medical 00 [place] COPD COPD Disease Active [facility] (chronic (chronic 8-25 [facility] - obstructiv obstructiv 00:00: Me dical e e 00 [place] pulmonary pulmonary disease) disease) S/P CABG x [...] embolism 8-14 [facility] - 00:00: Medical 00 [place] Left-sided Left-sided Disease Active [facility] muscle muscle 6-26 [facility] - weakness weakness 00:00: Medica l 00 [place] Muscle Muscle Disease Active [facility] cramps cramps 6-26 [facility] - 00:00: Medical 00 [place] Tension Tension Disease Active [facility] type type 6-26 [facility] - headache headache 00:00: Medica l 00 [place] CVA CVA Disease Active [facility] (cerebral (cerebral 6-24 Luke s - vascular vascular 00:00: Medica l accident) accident) 00 Cent er Seizure Seizure Disease Active [facility] disorder disorder 6-24 [facility] - 00:00: Medical 00 Center History of History of Disease Active [facility] atrial atrial 6-24 [facility] - fibrillati fibrillati 00:00: Me dical on on Center Chronic Chronic Disease Active [facility] anticoagul anticoagul 6-24 Thao kes - ation ation 00:00: Medical 00 [place] Cellulitis Cellulitis Disease Active [facility] 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 Weakness Problem Active 2011-10-03 Mem oria 08:09:33 l Weakness Richard n Active Problem 10/03/2011 [facility] CVA Diagnosis Active 2011-09-21 Mem oria 14:49:00 l CVA [place] Active Rehabilita tion Allergies, Adverse Reactions, Alerts Allergy Allergy Status Severity Reaction(s) Onset Inactive Treating Comm ents Source Name Type Date Date Clinician Aspirin Propensi Active Hives [facility] (Tartraz ty to 3-18 [facility] - ine adverse 00:00: Medical Only) reaction 00 Center s Aspirin Propensi Active Hives [facility] ty to 3-16 [facility] - adverse 00:00: Medical reaction 00 Darragh s Penicill Propensi Active Hives, [facility] to Swelling 3-16 [facility] - adverse 00:00: Medical reaction 00 Darragh s aspirin aspirin Active [facility]oria l [place] codeine codeine Active [facility] [place] penicill penicill Active Memori a ins ins l [place] Family History Family Member Diagnosis Comments Start Date Stop Date Source Natural mother Diabetes [facility] Social History Social Habit Start Date Stop Date Quantity Comments Source Sex Assigned At [facility] Cigarettes smoked 2016-12-13 2016-12-13 [facility] - current (pack per 00:00:00 00:00:00 [facility] Center day) - Reported Tobacco use and 2016-12-13 2016-12-13 Never used [facility] - exposure 00:00:00 00:00:00 [facility] Alcohol intake 2016-12-13 2016-12-13 Current [facility] 00:00:00 00:00:00 non-drinker of Medical Ce nter alcohol (finding) Smoking Status Start Date Stop Date Source Current every day smoker 2016-12-13 00:00:00 [facility] Medications Ordered Filled Start Stop Current [...] Take [address] [address] [facility] (BROVANA) 9-08 (15 mcg [facility] - 15 mcg/2 mL [...] PO, Memoria 6-16 Substituti l 23:36: on [place] 37 Allowed, TAB OXYcodone 2011-0 Yes 1, PO, Memori a 6-16 PRN, as l 23:36: needed for [place] 23 pain, Substituti on Allowed, TAB Ambien [...] tab, PO, l tablet 19:27: BID, 60 [place] 44 tab, Substituti on Allowed, TAB Colace [...] 6-09 West Route: PO, l 02:00: Bedtime, [place] 00 Start date: 09/21/11 21:00:00, Duration: 30 day, Stop date: 10/20/11 21:00:00 Ambien 0 No Marcial De 5 mg, 1 Me moria 6-09 West tab, l 02:00: Route: PO, [place] 00 Drug form: TAB, Bedtime, Start date: 09/21/11 21:00:00, Duration: 30 day, Stop date: 10/20/11 21:00:00 Percocet 2011-0 No Marcial De 1 tab, M emoria 5/325 oral 6-08 Wset Route: PO, l tablet 14:11: Drug Form: [...] of No Jeff 30 mL, Memoria Magnesia 09-14 Jef Route: PO, l 03:49: Efrain Drug Form: Richard n 00 SUSP, Daily, PRN Constipati on, Start date: 09/14/11 22:49:00, Duration: 30 day, Stop date: 10/14/11 22:48:00 bisacodyl No Jeff 10 mg, 1 Mem oria 09-14 Jef supp, l 03:49: Efrain Route: VT, Richard n 00 Drug form: SUPP, Bedtime, PRN Constipati on, Start date: 09/14/11 22:49:00, Duration: 30 day, Stop date: 10/14/11 22:48:00 zolpidem No Marcial De 5 mg, 1 Memoria -02 West tab, l 03:49: Route: PO, [place] 00 Drug form: TAB, Bedtime, PRN Insomnia, Start date: 09/14/11 22:49:00, Duration: 30 day, Stop date: 10/14/11 22:48:00 Keppra 750 2011- No Jeff 750 mg, 3 M emoria [...] Systolic (mm Hg) 2011-10-01 10:34:00 Luan rial [place] Respitory Rate 2011-10-01 10:34:00 Memori al [place] Heart Rate 2011-10-01 10:34:00 [facility] Temperature Oral (F) 2011-10-01 10:34:00 97.6 F [facility] Diastolic (mm Hg) 2011-10-01 10:34:00 Mem orial Miguel Diastolic (mm Hg) 2011-10-01 00:44:00 Mem orial [place] Respitory Rate 2011-10-01 00:44:00 Memori al Miguel Heart Rate 2011-10-01 00:44:00 [facility] Systolic (mm Hg) 2011-10-01 00:44:00 Luan rial Miguel Temperature Oral (F) 2011-10-01 00:44:00 98.1 F [facility] [place] Systolic (mm Hg) 2011-09-30 21:00:00 Luan rial Miguel Diastolic (mm Hg) 2011-09-30 21:00:00 Mem orial Miguel Heart Rate 2011-09-30 21:00:00 [facility] [place] Respitory Rate 2011-09-30 21:00:00 Memori al Miguel Temperature Oral (F) 2011-09-30 10:03:00 97.8 F [facility] Height 2011-09-15 03:49:00 172.72 cm [facility] [place] Weight 2011-09-15 03:49:00 [facility] [place] Procedures This patient has no known procedures. Results Test Description Test Time Test Comments Results Result Comments Source B-TYPE NATRIURETIC FACTOR (BNP) 2016-12-21 05:56:00 Test Item Value Reference Range Interpretation Comme nts B-TYPE NATRIURETIC PEPTIDE (BEAKER) (test code = 700) 136 pg/mL 0-100 H COMPREHENSIVE METABOLIC [id number] 05:53:00 Test Item Value Reference Range Interpretation [...] 8.4-10.2 (test code = 697) AST (SGOT) ([facility]) 67 U/L 5-34 H (test code = 353) ALT (SGPT) ([facility]) 88 U/L 6-55 H (test code = 347) EGFR ([facility]) (test 139 ESTIMATE D GFR IS code = 1092) mL/min/1.73 sq NOT ACCURA TE m CREATININE CLEARANCE IN PREDICTING GLOMERULAR FILTRATION RATE . ESTIMATED GFR I S NOT APPLICABLE FOR DIALYSIS PATIEN TS. POCT-GLUCOSE [id number] 16:33:00 Test Item Value Reference Range Interpretation Comments POC-GLUCOSE METER 116 mg/dL 70-110 H TESTED AT [place] [address] ([facility]) (test code = [employer] Etohum [facility] 1538) [address] POCT-GLUCOSE [id number] 11:08:00 Test Item Value Reference Range Interpretation Comments POC-GLUCOSE METER 133 mg/dL 70-110 H TESTED AT [place] [address] ([facility]) (test code = Home[employer] [facility] 1538) [address] POCT-GLUCOSE [id number] 06:11:00 Test Item Value Reference Range Interpretation Comments POC-GLUCOSE METER 105 mg/dL 70-110 TESTED AT [place] [address] ([facility]) (test code = Home[facility] [place] 1538) [address] POCT-GLUCOSE [id number] 20:28:00 Test Item Value Reference Range Interpretation Comments POC-GLUCOSE METER 124 mg/dL 70-110 H TESTED AT [place] [address] ([facility]) (test code = Home[facility] [place] 1538) [address] POCT-GLUCOSE [id number] 16:46:00 Test Item Value Reference Range Interpretation Comments POC-GLUCOSE METER 113 mg/dL 70-110 H TESTED AT [place] [address] ([facility]) (test code = Home[facility] [place] 1538) [address] POCT-GLUCOSE [id number] 11:46:00 Test Item Value Reference Range Interpretation Comments POC-GLUCOSE METER 113 mg/dL 70-110 H TESTED AT [place] [address] ([facility]) (test code = Home[employer] [place] 1538) [address] URINE [id number] 09:54:00 Test Item Value Reference Range Interpretation Comments CULTURE ([facility]) (test KLEBSIELLA A >100, 000 [...] S Sulfamethoxazole (test code = 47) POCT-GLUCOSE [id number] 06:46:00 Test Item Value Reference Range Interpretation Comments POC-GLUCOSE METER 111 mg/dL 70-110 H TESTED AT [place] [address] ([facility]) (test [facility] = [facility] Cazares [facility] 1538) [address] POCT-GLUCOSE [id number] 20:48:00 Test Item Value Reference Range Interpretation Comments POC-GLUCOSE METER 128 mg/dL 70-110 H TESTED AT [place] [address] ([facility]) (test code = [facility] 1538) [address] POCT-GLUCOSE [id number] 16:00:00 Test Item Value Reference Range Interpretation Comments POC-GLUCOSE METER 127 mg/dL 70-110 H TESTED AT [place] [address] ([facility]) (test code = [facility] Sage [facility] 1538) [address] POCT-GLUCOSE [id number] 11:16:00 Test Item Value Reference Range Interpretation Comments POC-GLUCOSE METER 273 mg/dL 70-110 H TESTED AT [place] [address] ([facility]) (test code = [facility] 1538) [address] COMPREHENSIVE METABOLIC [id number] 06:44:00 Test Item Value Reference Range Interpretation Comments TOTAL PROTEIN 6.4 gm/dL 6.0-8.3 ([facility]) (test code = 770) ALBUMIN ([facility]) 2.9 g/dL 3.5-5.0 L (test [...] S NOT APPLICABLE FOR DIALYSIS PATIEN TS. [id number] 06:27:00 Test Item Value Reference Range Interpretation Comments PARTIAL THROMBOPLASTIN TIME 38.5 seconds 22.5-36.0 H (BEAKER) (test code = 760) PROTHROMBIN [id number] 06:26:00 Test Item Value Reference Range Interpretation [...] PERCENT (BEAKER) (test code = 2801) POCT-GLUCOSE [id number] 06:22:00 Test Item Value Reference Range Interpretation Comments POC-GLUCOSE METER 131 mg/dL 70-110 H TESTED AT [place] [address] (BEAKER) (test code = TISHA Cazares [place] 1538) [address] URINALYSIS W/ [id number] 20:35:00 Test Item Value Reference Range Interpretation [...] code Urine, Clean Catch = 2795) POCT-GLUCOSE [id number] 20:21:00 Test Item Value Reference Range Interpretation Comments POC-GLUCOSE METER 132 mg/dL 70-110 H TESTED AT [place] [address] (BEAKER) (test code = TISHA Sage [place] 1538) [address] POCT-GLUCOSE [id number] 16:17:00 Test Item Value Reference Range Interpretation Comments POC-GLUCOSE METER 101 mg/dL 70-110 TESTED AT [place] [address] (BEAKER) (test code = TISHA Sage [place] 1538) [address] POCT-GLUCOSE [id number] 13:35:00 Test Item Value Reference Range Interpretation Comments POC-GLUCOSE METER 143 mg/dL 70-110 H TESTED AT [facility] 67[address] (BEAKER) (test code = TISHA [place] 0030) [address] BASIC METABOLIC [id number] 06:31:00 Test Item Value Reference Range Interpretation [...] APPLICABLE FOR DIALYSIS PATIEN TS. BASIC METABOLIC [id number] 05:41:00 Test Item Value Reference Range Interpretation [...] 0-0 (BEAKER) (test code = 413) VITAMIN [id number] 06:04:00 Test Item Value Reference Range Interpretation Comments VITAMIN B12 (BEAKER) (test code = 619 pg/mL 213-816 774) [id number] 06:04:00 Test Item Value Reference Range Interpretation Comments FERRITIN (BEAKER) (test code = 361) 335 ng/mL 5-275 H Effective 03/02/2014: Reference Range ChangeNew: Male 5-275 Previous: Male 22-322 Female 5-275 Female 10-291FOLATE, [id number] 06:04:00 Test Item Value Reference Range Interpretation Comments FOLATE (BEAKER) (test code = 362) 4.9 ng/mL >=7.0 L Effective 03/02/2014: Folate Reference Range ChangeNew: >=7.0 Previous: >=5.4BASIC METABOLIC [id number] 05:47:00 Test Item Value Reference Range Interpretation [...] (BEAKER) (test code = 413) BASIC METABOLIC [id number] 05:53:00 Test Item Value Reference Range Interpretation [...] WBC 0-0 (BEAKER) (test code = 413) [id number] 22:53:00 Test Item Value Reference Range Interpretation Comments ACTIVATED CLOTTING TIME 153 sec TEST ED AT [place] [address] ([facility]) (test code = [place] [address]) [address] [id number] 22:35:00 Test Item Value Reference Range Interpretation Comments ACTIVATED CLOTTING TIME 202 sec TEST ED AT [place] [address] ([facility]) (test code = [place] [address]) [address] [id number] 22:04:00 Test Item Value Reference Range Interpretation [...] (BEAKER) (test code = 413) BASIC METABOLIC [id number] 08:43:00 Test Item Value Reference Range Interpretation [...] (BEAKER) (test code = 413) BASIC METABOLIC [id number] 06:44:00 Test Item Value Reference Range Interpretation [...] PATIEN TS. CBC W/PLT COUNT & AUTO [id number] 21:33:00 Test Item Value Reference Range Interpretation [...] 0-1 PERCENT (BEAKER) (test code = 2801) [id number] 07:21:00 Test Item Value Reference Range Interpretation Comments PHOSPHORUS (BEAKER) (test code = 3.6 mg/dL 2.3-4.7 604) [id number] 07:21:00 Test Item Value Reference Range Interpretation Comments MAGNESIUM (BEAKER) (test code = 1.9 mg/dL 1.6-2.6 627) COMPREHENSIVE METABOLIC [id number] 07:21:00 Test Item Value Reference Range Interpretation [...] code = 413) PHENYTOIN LEVEL, TOTAL AND [id number] 01:14:00 Test Item Value Reference Range Interpretation Comments PHENYTOIN (DILANTIN) (BEAKER) 22.9 ug/mL 10.0-20.0 H (test code = 605) PHENYTOIN FREE (BEAKER) (test 3.51 mcg/ml 1.00-2.00 H code = 847) VALPROIC ACID LEVEL, [id number] 20:49:00 Test Item Value Reference Range Interpretation Comments VALPROIC ACID TOTAL (BEAKER) (test 33 ug/mL 50-100 L code = 924) Therapeutic range for some clinical conditions may be >100 ug/mLPOCT-GLUCOSE [id number] 17:10:00 Test Item Value Reference Range Interpretation Comments POC-GLUCOSE METER 108 mg/dL 70-110 TESTED AT [facility] 67[address] ([facility]) (test code = TISHA [place] 1538) [address] PHENYTOIN LEVEL, [id number] 12:29:00 Test Item Value Reference Range Interpretation Comments PHENYTOIN (DILANTIN) (BEAKER) 16.3 ug/mL 10.0-20.0 (test code = 605) CREATINE KINASE (CK), TOTAL AND [id number] 12:26:00 Test Item Value Reference Range Interpretation Comments CREATINE KINASE TOTAL (BEAKER) 47 U/L 29-200 (test code = 380) CREATINE KINASE-MB (BEAKER) (test 1.1 ng/mL 0.0-6.6 code = 750) CREATINE KINASE-MB INDEX (BEAKER) 2.3 % (test code = 395) Effective 03/02/2014: CK-MB Reference Range ChangeNew: 0.0-6.6 Previous: 0.0-4.9CK-MB Reference Range:<6.7 Normal6.7-10.0 Borderline>10.0 AbnormalTROPONIN [id number] 12:26:00 Test Item Value Reference Range Interpretation [...] renalfailure, acidosis, acute neurological disease, and persistent tachyarrhythmia.[id number] 12:17:00 Test Item Value Reference Range Interpretation Comments MAGNESIUM (BEAKER) (test code = 2.0 mg/dL 1.6-2.6 627) COMPREHENSIVE METABOLIC [id number] 12:17:00 Test Item Value Reference Range Interpretation [...] PATIEN TS. CBC W/PLT COUNT & AUTO [id number] 11:55:00 Test Item Value Reference Range Interpretation [...] PERCENT (BEAKER) (test code = 2801) URINE [id number] 11:55:00 Test Item Value Reference Range Interpretation Comments CULTURE (BEAKER) (test code = 1095) No growth BLOOD GAS, [id number] 10:28:00 Test Item Value Reference Range Interpretation [...] (test code = 1819) 32.0 % POCT-GLUCOSE [id number] 09:53:00 Test Item Value Reference Range Interpretation Comments POC-GLUCOSE METER 184 mg/dL 70-110 H TESTED AT [facility] 67[address] (BEAKER) (test code = TISHA [place] 1538) [address] TROPONIN [id number] 22:44:00 Test Item Value Reference Range Interpretation [...] acidosis, acute neurological disease, and persistent tachyarrhythmia.TROPONIN [id number] 15:17:00 Test Item Value Reference Range Interpretation [...] MORPHOLOGY (BEAKER) (test code = Normal 762) [id number] 07:06:00 Test Item Value Reference Range Interpretation Comments PHOSPHORUS (BEAKER) (test code = 2.5 mg/dL 2.3-4.7 604) [id number] 07:06:00 Test Item Value Reference Range Interpretation Comments MAGNESIUM (BEAKER) (test code = 2.0 mg/dL 1.6-2.6 627) COMPREHENSIVE METABOLIC [id number] 07:06:00 Test Item Value Reference Range Interpretation [...] NOT APPLICABLE FOR DIALYSIS PATIEN TS. PROTHROMBIN [id number] 06:40:00 Test Item Value Reference Range Interpretation Comments PROTIME (BEAKER) (test code = 12.5 seconds 11.7-14.7 759) INR (BEAKER) (test code = 370) 1.0 <=5.9 RECOMMENDED COUMADIN/WARFARIN INR THERAPY RANGESSTANDARD DOSE: 2.0 - 3.0 Includes: PROPHYLAXIS forvenous thrombosis, systemic embolization; TREATMENT for venous thrombosis and/or pulmonary embolus.HIGH RISK: Target INR is 2.5-3.5 for patients with mechanical heart valves.URINALYSIS W/ [id number] 06:18:00 Test Item Value Reference Range Interpretation [...] 516) SOURCE(BEAKER) (test code = Urine, Voided 4054) COMPREHENSIVE METABOLIC [id number] 05:47:00 Test Item Value Reference Range Interpretation [...] (BEAKER) (test code = 413) COMPREHENSIVE METABOLIC [id number] 10:08:00 Test Item Value Reference Range Interpretation [...] 0-0 (BEAKER) (test code = 413) POCT-GLUCOSE [id number] 12:08:00 Test Item Value Reference Range Interpretation Comments POC-GLUCOSE METER 111 mg/dL 70-110 H TESTED AT [place] [address] [facility] (test code = T[place] 1538) [address] POCT-GLUCOSE [id number] 08:40:00 Test Item Value Reference Range Interpretation Comments POC-GLUCOSE METER 184 mg/dL 70-110 H TESTED AT [place] [address] ([facility]) (test code = T[place] 1538) [address] [id number] 05:57:00 Test Item Value Reference Range Interpretation Comments MAGNESIUM (BEAKER) (test code = 2.1 mg/dL 1.6-2.6 627) BASIC METABOLIC [id number] 05:57:00 Test Item Value Reference Range Interpretation [...] 0-0 (BEAKER) (test code = 413) POCT-GLUCOSE [id number] 21:18:00 Test Item Value Reference Range Interpretation Comments POC-GLUCOSE METER 118 mg/dL 70-110 H TESTED AT [facility] 67[address] ([facility]) (test code = T[place] 1538) [address] POCT-GLUCOSE [id number] 17:33:00 Test Item Value Reference Range Interpretation Comments POC-GLUCOSE METER 102 mg/dL 70-110 TESTED AT [facility] 67[address] (BEAKER) (test code = [facility] Sage [facility] 1538) [address] POCT-GLUCOSE [id number] 12:06:00 Test Item Value Reference Range Interpretation Comments POC-GLUCOSE METER 188 mg/dL 70-110 H TESTED AT [facility] 67 (BEAKER) (test code = [facility] Sage [facility] 1538) [address] POCT-GLUCOSE [id number] 08:31:00 Test Item Value Reference Range Interpretation Comments POC-GLUCOSE METER 109 mg/dL 70-110 TESTED AT [place] [address] (BEAKER) (test code = [facility] 1538) [address] [id number] 06:07:00 Test Item Value Reference Range Interpretation Comments MAGNESIUM (BEAKER) (test code = 2.0 mg/dL 1.6-2.6 627) BASIC METABOLIC [id number] 06:07:00 Test Item Value Reference Range Interpretation [...] S NOT APPLICABLE FOR DIALYSIS PATIEN TS. [id number] 05:40:00 Test Item Value Reference Range Interpretation [...] 0-0 (BEAKER) (test code = 413) POCT-GLUCOSE [id number] 21:01:00 Test Item Value Reference Range Interpretation Comments POC-GLUCOSE METER 118 mg/dL 70-110 H TESTED AT [facility] 67[address] (BEAKER) (test code = T[place] 1538) [address] POCT-GLUCOSE [id number] 18:51:00 Test Item Value Reference Range Interpretation Comments POC-GLUCOSE METER 117 mg/dL 70-110 H TESTED AT [facility] 67[address] (BEAKER) (test code = TISHA [place] 1538) [address] POCT-GLUCOSE [id number] 14:02:00 Test Item Value Reference Range Interpretation Comments POC-GLUCOSE METER 129 mg/dL 70-110 H TESTED AT [facility] 67[address] (BEAKER) (test code = T[place] 1538) [address] [id number] 04:19:00 Test Item Value Reference Range Interpretation Comments MAGNESIUM (BEAKER) (test code = 1.8 mg/dL 1.6-2.6 627) BASIC METABOLIC [id number] 04:19:00 Test Item Value Reference Range Interpretation [...] S NOT APPLICABLE FOR DIALYSIS PATIEN TS. [id number] 04:13:00 Test Item Value Reference Range Interpretation [...] heart valves.Prior to initiating heparinPrior to initiating [id number] 04:13:00 Test Item Value Reference Range Interpretation Comments PARTIAL THROMBOPLASTIN TIME 42.4 seconds 22.5-36.0 H (BEAKER) (test code = 760) LACTIC ACID, ARTERIAL, WHOLE [id number] 04:09:00 Test Item Value Reference Range Interpretation [...] 0-0 (BEAKER) (test code = 413) CALCIUM, [id number] 03:54:00 Test Item Value Reference Range Interpretation Comments CALCIUM IONIZED (BEAKER) (test 1.14 mmol/L 1.12-1.27 code = 698) PH, BLOOD (BEAKER) (test code = 7.49 1810) BLOOD GAS, [id number] 03:54:00 Test Item Value Reference Range Interpretation [...] (test code = 1819) 36.0 % POCT-GLUCOSE [id number] 17:32:00 Test Item Value Reference Range Interpretation Comments POC-GLUCOSE METER 121 mg/dL 70-110 H TESTED AT [facility] 67 ([facility]) (test code = T[place] 1538) [address] PLATELET AGGREGATION: FUNCTION [id number] 14:46:00 Test Item Value Reference Range Interpretation Comments WEAK ADP 82 % 60-91 RESULT([facility]) (test code = 2135) PLATELET FUNCTION 60-100% indicates SCREEN INTERP ([facility]) normal platelet (test code = 2173) function [id number] Mari Phlean MD ([facility]) (test code = (electronic signature) 6168) PLATELET COUNT AGG 221 K/CU MM 150-450 ([facility]) (test code = 2656) POCT-GLUCOSE [id number] 12:58:00 Test Item Value Reference Range Interpretation Comments POC-GLUCOSE METER 129 mg/dL 70-110 H TESTED AT [facility] 67[address] ([facility]) (test code = T[place] 1538) [address] HEMOGLOBIN [id number] 09:09:00 Test Item Value Reference Range Interpretation Comments HEMOGLOBIN A1C (BEAKER) (test code = 5.1 % 4.3-6.1 368) BLOOD GAS, [id number] 06:57:00 Test Item Value Reference Range Interpretation [...] (test code = 1819) 40.0 % POCT-GLUCOSE [id number] 06:01:00 Test Item Value Reference Range Interpretation Comments POC-GLUCOSE METER 154 mg/dL 70-110 H TESTED AT [facility] 67[address] (BEAKER) (test code = T[place] 1538) [address] [id number] 05:02:00 Test Item Value Reference Range Interpretation Comments MAGNESIUM (BEAKER) (test code = 2.0 mg/dL 1.6-2.6 627) BASIC METABOLIC [id number] 05:02:00 Test Item Value Reference Range Interpretation [...] S NOT APPLICABLE FOR DIALYSIS PATIEN TS. [id number] 04:56:00 Test Item Value Reference Range Interpretation [...] code = 2801) LACTIC ACID, ARTERIAL, WHOLE [id number] 04:39:00 Test Item Value Reference Range Interpretation Comments LACTATE BLOOD ARTERIAL (2) 1.2 mmol/L 0.5-2.2 (BEAKER) (test code = 2874) Effective 08/17/2015: Units/Reference Range ChangeNew: 0.5-2.2 mmol/L Previous: 5-20 mg/dLCALCIUM, [id number] 04:11:00 Test Item Value Reference Range Interpretation Comments CALCIUM IONIZED (BEAKER) (test 1.17 mmol/L 1.12-1.27 code = 698) PH, BLOOD (BEAKER) (test code = 7.44 1810) BLOOD GAS, [id number] 04:11:00 Test Item Value Reference Range Interpretation [...] code = 1819) 40.0 % OXYGEN SATURATION, [id number] 04:09:00 Test Item Value Reference Range Interpretation Comments O2 SATURATION (MEASURED) (BEAKER) 80.7 % (test code = 1455) POCT-GLUCOSE [id number] 02:46:00 Test Item Value Reference Range Interpretation Comments POC-GLUCOSE METER 150 mg/dL 70-110 H TEST[facility] AT [place] [address] [facility] (test code = TISHA Cazares [place] 1538) [id number] POCT-GLUCOSE [id number] 18:29:00 Test Item Value Reference Range Interpretation Comments POC-GLUCOSE METER 111 mg/dL 70-110 H TESTED AT [place] [address] ([facility] (test code = TISHA Sage [place] [address]) [address] [id number] 16:27:00 Test Item Value Reference Range Interpretation Comments POTASSIUM (BEAKER) (test code = 4.2 meq/L 3.5-5.1 379) [id number] 16:27:00 Test Item Value Reference Range Interpretation Comments MAGNESIUM (BEAKER) (test code = 2.1 mg/dL 1.6-2.6 627) [id number] 16:27:00 Test Item Value Reference Range Interpretation Comments SODIUM (BEAKER) (test code = 381) 141 meq/L 136-145 BASIC METABOLIC [id number] 16:27:00 Test Item Value Reference Range Interpretation [...] DIALYSIS PATIEN TS. LACTIC ACID, ARTERIAL, WHOLE [id number] 16:23:00 Test Item Value Reference Range Interpretation Comments LACTATE BLOOD 1.8 mmol/L 0.5-2.2 Specimen sligh tly ARTERIAL (2) (BEAKER) hemoly zed (test code = 2874) Effective 08/17/2015: Units/Reference Range ChangeNew: 0.5-2.2 mmol/L Previous: 5-20 mg/dLPT/[id number] 16:18:00 Test Item Value Reference Range Interpretation [...] for patients with mechanical heart valves.HEMOGLOBIN AND [id number] 16:10:00 Test Item Value Reference Range Interpretation [...] (BEAKER) (test code = 413) BLOOD GAS, [id number] 16:03:00 Test Item Value Reference Range Interpretation [...] (test code = 1819) 60.0 % CALCIUM, [id number] 16:03:00 Test Item Value Reference Range Interpretation Comments CALCIUM IONIZED (BEAKER) (test 1.18 mmol/L 1.12-1.27 code = 698) PH, BLOOD (BEAKER) (test code = 7.36 1810) OXYGEN SATURATION, [id number] 16:02:00 Test Item Value Reference Range Interpretation Comments O2 SATURATION (MEASURED) ([facility]) 82.9 % (test code = 1455) [id number] 15:26:00 Test Item Value Reference Range Interpretation Comments ACTIVATED CLOTTING TIME 120 sec TEST ED AT [place] [address] ([facility]) (test code = T[place] Cazares [place] [address]) [address] [id number] 15:26:00 Test Item Value Reference Range Interpretation Comments ACTIVATED CLOTTING TIME 802 sec TEST ED AT [place] [address] ([facility]) (test code = TISHA Cazares [place] [address]) [address] [id number] 15:26:00 Test Item Value Reference Range Interpretation Comments ACTIVATED CLOTTING TIME 884 sec TEST ED AT [place] [address] ([facility]) (test code = TISHA Cazares [place] [address]) [address] [id number] 15:26:00 Test Item Value Reference Range Interpretation Comments ACTIVATED CLOTTING TIME 621 sec TEST ED AT [place] [address] ([facility]) (test code = TISHA Cazares [facility] [address]) [address] THROMBOELASTOGRAPH (TEG)2016-11-28 14:00:00 Test Item Value Reference Range Interpretation Comments TEG ACTIVATED CLOTTING TIME 8.7 minutes 4.0-7.0 H ([facility]) (test code = 1407) TEG FIBRINOGEN ACTIVITY (BEAKER) 73.1 degrees 61.0-73.0 H (test code = 1408) TEG PLT. AGGREGATION (AKER) 70.6 MM 55.0-65.0 H (test code = 1409) TGH ACTIVATED CLOTTING TIME 8.7 minutes 4.0-7.0 H ([facility]) (test code = 1411) TGH FIBRINOGEN ACTIVITY (BEAKER) 73.0 degrees 61.0-73.0 (test code = 1412) TGH PLT. AGGREGATION (AKER) 69.3 MM 55.0-65.0 H (test code = 1413) [id number] 13:28:00 Test Item Value Reference Range Interpretation Comments FIBRINOGEN LEVEL (AKER) (test 458 mg/dl 225-434 H code = 658) [id number] 13:28:00 Test Item Value Reference Range Interpretation Comments PARTIAL THROMBOPLASTIN TIME 39.7 seconds 22.5-36.0 H (BEAKER) (test code = 760) PROTHROMBIN TIME/[id number] 13:27:00 Test Item Value Reference Range Interpretation Comments PROTIME (BEAKER) (test code = 17.4 seconds 11.7-14.7 H 759) INR (BEAKER) (test code = 370) 1.4 <=5.9 RECOMMENDED COUMADIN/WARFARIN INR THERAPY RANGESSTANDARD DOSE: 2.0 - 3.0 Includes: PROPHYLAXIS forvenous thrombosis, systemic embolization; TREATMENT for venous thrombosis and/or pulmonary embolus.HIGH RISK: Target INR is 2.5-3.5 for patients with mechanical heart valves.PLATELET [id number] 13:21:00 Test Item Value Reference Range Interpretation Comments PLATELET COUNT 151 K/CU MM 150-450 Discordant re sult (BEAKER) (test code compared to previous = 756) result; clinica l correlation req uired. CALCIUM, [id number] 13:06:00 Test Item Value Reference Range Interpretation Comments CALCIUM IONIZED (BEAKER) (test 1.07 mmol/L 1.12-1.27 L code = 698) PH, BLOOD (BEAKER) (test code = 7.31 1810) SODIUM NA-STAT [id number] 13:05:00 Test Item Value Reference Range Interpretation Comments SODIUM (BEAKER) (test code = 381) 135 meq/L 135-148 POTASSIUM-STAT [id number] 13:05:00 Test Item Value Reference Range Interpretation Comments POTASSIUM (BEAKER) (test code = 4.4 meq/L 3.6-5.5 379) BLOOD GAS, [id number] 13:05:00 Test Item Value Reference Range Interpretation [...] (test code = 1819) 67.0 % GLUCOSE-STAT [id number] 13:05:00 Test Item Value Reference Range Interpretation Comments GLUCOSE RANDOM (BEAKER) (test code 145 mg/dL 70-110 H = 652) HGB/HCT (H&H) - STAT [id number] 13:05:00 Test Item Value Reference Range Interpretation Comments HEMOGLOBIN (BEAKER) (test code = 10.2 g/dL 13.0-16.8 L 410) HEMATOCRIT (BEAKER) (test code = 30.0 % 40.0-50.0 L 411) BLOOD GAS, [id number] 12:26:00 Test Item Value Reference Range Interpretation [...] (test code = 1819) 65.0 % GLUCOSE-STAT [id number] 12:26:00 Test Item Value Reference Range Interpretation Comments GLUCOSE RANDOM (BEAKER) (test code 132 mg/dL 70-110 H = 652) HGB/HCT (H&H) - STAT [id number] 12:26:00 Test Item Value Reference Range Interpretation Comments HEMOGLOBIN (BEAKER) (test code = 10.6 g/dL 13.0-16.8 L 410) HEMATOCRIT (BEAKER) (test code = 31.0 % 40.0-50.0 L 411) SODIUM NA-STAT [id number] 12:25:00 Test Item Value Reference Range Interpretation Comments SODIUM (BEAKER) (test code = 381) 136 meq/L 135-148 POTASSIUM-STAT [id number] 12:25:00 Test Item Value Reference Range Interpretation Comments POTASSIUM (BEAKER) (test code = 4.4 meq/L 3.6-5.5 379) BLOOD GAS, [id number] 12:03:00 Test Item Value Reference Range Interpretation [...] (test code = 1819) 65.0 % POTASSIUM-STAT [id number] 12:00:00 Test Item Value Reference Range Interpretation Comments POTASSIUM (BEAKER) (test code = 4.7 meq/L 3.6-5.5 379) BLOOD GAS, [id number] 12:00:00 Test Item Value Reference Range Interpretation [...] (test code = 1819) 65.0 % GLUCOSE-STAT [id number] 12:00:00 Test Item Value Reference Range Interpretation Comments GLUCOSE RANDOM (BEAKER) (test code 140 mg/dL 70-110 H = 652) HGB/HCT (H&H) - STAT [id number] 12:00:00 Test Item Value Reference Range Interpretation Comments HEMOGLOBIN (BEAKER) (test code = 10.4 g/dL 13.0-16.8 L 410) HEMATOCRIT (BEAKER) (test code = 31.0 % 40.0-50.0 L 411) SODIUM NA-STAT [id number] 12:00:00 Test Item Value Reference Range Interpretation Comments SODIUM (BEAKER) (test code = 381) 131 meq/L 135-148 L PLATELET AGGREGATION: FUNCTION [id number] 11:08:00 Test Item Value Reference Range Interpretation Comments WEAK ADP 76 % 60-91 RESULT(BEAKER) (test code = 2135) PLATELET FUNCTION 60-100% indicates SCREEN INTERP (BEAKER) normal platelet (test code = 2173) function [id number] Mari Phelan MD (BEAKER) (test code = (electronic signature) 1612) PLATELET COUNT AGG 222 K/CU MM 150-450 (BEAKER) (test code = 2656) for patients on clopidogrel in past two weeksHEMOGLOBIN [id number] 08:57:00 Test Item Value Reference Range Interpretation Comments HEMOGLOBIN A1C (BEAKER) (test code = 5.0 % 4.3-6.1 368) CBC W/PLT COUNT & AUTO [id number] 05:54:00 Test Item Value Reference Range Interpretation [...] 0-1 PERCENT (BEAKER) (test code = 2801) [id number] 05:37:00 Test Item Value Reference Range Interpretation Comments PARTIAL THROMBOPLASTIN TIME 56.5 seconds 22.5-36.0 H (BEAKER) (test code = 760) BASIC METABOLIC [id number] 05:33:00 Test Item Value Reference Range Interpretation [...] NOT APPLICABLE FOR DIALYSIS PATIEN TS. PROTHROMBIN TIME/[id number] 05:33:00 Test Item Value Reference Range Interpretation Comments PROTIME (BEAKER) (test code = 13.3 seconds 11.7-14.7 759) INR (BEAKER) (test code = 370) 1.0 <=5.9 RECOMMENDED COUMADIN/WARFARIN INR THERAPY RANGESSTANDARD DOSE: 2.0 - 3.0 Includes: PROPHYLAXIS forvenous thrombosis, systemic embolization; TREATMENT for venous thrombosis and/or pulmonary embolus.HIGH RISK: Target INR is 2.5-3.5 for patients with mechanical heart valves.[id number] 19:22:00 Test Item Value Reference Range Interpretation Comments PARTIAL THROMBOPLASTIN TIME 37.4 seconds 22.5-36.0 H (BEAKER) (test code = 760) PROTHROMBIN TIME/[id number] 19:21:00 Test Item Value Reference Range Interpretation Comments PROTIME (BEAKER) (test code = 12.8 seconds 11.7-14.7 759) INR (BEAKER) (test code = 370) 1.0 <=5.9 RECOMMENDED COUMADIN/WARFARIN INR THERAPY RANGESSTANDARD DOSE: 2.0 - 3.0 Includes: PROPHYLAXIS forvenous thrombosis, systemic embolization; TREATMENT for venous thrombosis and/or pulmonary embolus.HIGH RISK: Target INR is 2.5-3.5 for patients with mechanical heart valves.[id number] 11:49:00 Test Item Value Reference Range Interpretation Comments PARTIAL THROMBOPLASTIN TIME 34.7 seconds 22.5-36.0 (BEAKER) (test code = 760) Prior to initiating heparinPLATELET [id number] 11:31:00 Test Item Value Reference Range Interpretation Comments PLATELET COUNT (BEAKER) (test 199 K/CU MM 150-450 code = 756) PLATELET AGGREGATION: FUNCTION [id number] 11:12:00 Test Item Value Reference Range Interpretation Comments WEAK ADP 90 % 60-91 RESULT(BEAKER) (test code = 2135) PLATELET FUNCTION 60-100% indicates SCREEN INTERP (BEAKER) normal platelet (test code = 2173) function [id number] Mari Phelan MD (BEAKER) (test code = (electronic signature) 0178) PLATELET COUNT AGG 200 K/CU MM 150-450 (BEAKER) (test code = 2656) HEMOGLOBIN [id number] 08:38:00 Test Item Value Reference Range Interpretation Comments HEMOGLOBIN A1C (BEAKER) (test code = 5.5 % 4.3-6.1 368) TROPONIN [id number] 08:35:00 Test Item Value Reference Range Interpretation [...] Previous: 0.0-4.9CK-MB Reference Range:<6.7 Normal6.7-10.0 Borderline>10.0 AbnormalPOCT-GLUCOSE [id number] 08:23:00 Test Item Value Reference Range Interpretation Comments POC-GLUCOSE METER 104 mg/dL 70-110 TESTED AT [facility] 67[address] (BEAKER) (test code = [place] 1538) [address] PROTHROMBIN TIME/[id number] 04:32:00 Test Item Value Reference Range Interpretation Comments PROTIME (BEAKER) (test code = 13.5 seconds 11.7-14.7 759) INR (BEAKER) (test code = 370) 1.0 <=5.9 RECOMMENDED COUMADIN/WARFARIN INR THERAPY RANGESSTANDARD DOSE: 2.0 - 3.0 Includes: PROPHYLAXIS forvenous thrombosis, systemic embolization; TREATMENT for venous thrombosis and/or pulmonary embolus.HIGH RISK: Target INR is 2.5-3.5 for patients with mechanical heart valves.[id number] 02:13:00 Test Item Value Reference Range Interpretation Comments PHOSPHORUS (BEAKER) (test code = 3.9 mg/dL 2.3-4.7 604) [id number] 02:13:00 Test Item Value Reference Range Interpretation Comments MAGNESIUM (BEAKER) (test code = 2.1 mg/dL 1.6-2.6 627) BASIC METABOLIC [id number] 02:13:00 Test Item Value Reference Range Interpretation [...] PATIEN TS. CBC W/PLT COUNT & AUTO [id number] 01:44:00 Test Item Value Reference Range Interpretation [...] 0-1 PERCENT (BEAKER) (test code = 2801) [id number] 01:31:00 Test Item Value Reference Range Interpretation [...] 2.5-3.5 for patients with mechanical heart valves.TROPONIN [id number] 00:46:00 Test Item Value Reference Range Interpretation [...] 0.0-6.6 Previous: 0.0-4.9CK-MB Reference Range:<6.7 Normal6.7-10.0 Borderline>10.0 CvpcwjofAREYCYZUCU0621-54-89 06:58:00 Test Item Value Reference Range Interpretation Comments PHOSPHORUS (BEAKER) (test code = 3.7 mg/dL 2.3-4.7 604) [id number] 06:58:00 Test Item Value Reference Range Interpretation Comments MAGNESIUM (BEAKER) (test code = 1.9 mg/dL 1.6-2.6 627) BASIC METABOLIC [id number] 06:58:00 Test Item Value Reference Range Interpretation [...] S NOT APPLICABLE FOR DIALYSIS PATIEN TS. [id number] 06:36:00 Test Item Value Reference Range Interpretation Comments PHOSPHORUS (BEAKER) (test code = 4.1 mg/dL 2.3-4.7 604) [id number] 06:36:00 Test Item Value Reference Range Interpretation Comments MAGNESIUM (BEAKER) (test code = 2.0 mg/dL 1.6-2.6 627) BASIC METABOLIC [id number] 06:36:00 Test Item Value Reference Range Interpretation [...] S NOT APPLICABLE FOR DIALYSIS PATIEN TS. [id number] 15:50:00 Test Item Value Reference Range Interpretation Comments RPR SCREEN (BEAKER) (test code = Nonreactive Nonreactive 420) HEMOGLOBIN [id number] 10:29:00 Test Item Value Reference Range Interpretation Comments HEMOGLOBIN A1C (BEAKER) (test code = 5.4 % 4.3-6.1 368) VITAMIN B12 AND [id number] 09:21:00 Test Item Value Reference Range Interpretation Comments VITAMIN B12 (BEAKER) (test code = 335 pg/mL 213-816 774) FOLATE (BEAKER) (test code = 362) 36.6 ng/mL >=7.0 Effective 03/02/2014: Folate Reference Range ChangeNew: >=7.0 Previous: >=5.4CBC W/PLT COUNT & AUTO [id number] 08:15:00 Test Item Value Reference Range Interpretation [...] (test code = 417) 0.00TSH/FREE T4 IF [id number] 08:00:00 Test Item Value Reference Range Interpretation Comments THYROID STIMULATING HORMONE 1.39 uIU/mL 0.35-4.94 (BEAKER) (test code = 772) BASIC METABOLIC [id number] 07:26:00 Test Item Value Reference Range Interpretation [...] code = 1092) mL/min/1.73 sq DATA TO LUIS MIGUEL chan ESTIMATED GFR. LIPID [id number] 07:26:00 Test Item Value Reference Range Interpretation [...] 100-129 Borderline 130-159 High 160-189 Very High >=870VTSEGCXVUE3646-49-20 07:25:00 Test Item Value Reference Range Interpretation Comments PHOSPHORUS (BEAKER) (test code = 3.8 mg/dL 2.3-4.7 604) [id number] 07:25:00 Test Item Value Reference Range Interpretation Comments MAGNESIUM (BEAKER) (test code = 2.0 mg/dL 1.6-2.6 627) URINALYSIS W/ [id number] 19:16:00 Test Item Value Reference Range Interpretation [...] 520) SOURCE(BEAKER) (test code = Urine, Voided 7274) BLOOD [id number] 11:00:00 Test Item Value Reference Range Interpretation Comments CULTURE (BEAKER) (test No growth in 5 days code = 1095) BLOOD [id number] 11:00:00 Test Item Value Reference Range Interpretation Comments CULTURE (BEAKER) (test No growth in 5 days code = 1095) BASIC METABOLIC [id number] 05:33:00 Test Item Value Reference Range Interpretation [...] ESTIMATED GFR. CBC W/PLT COUNT & AUTO [id number] 05:04:00 Test Item Value Reference Range Interpretation [...] 0.00-0.20 (test code = 417) 0.00VANCOMYCIN LEVEL, [id number] 21:36:00 Test Item Value Reference Range Interpretation Comments VANCOMYCIN TROUGH (BEAKER) (test 9.5 ug/mL 10.0-20.0 L code = 522) Please draw prior to 4th vancomycin doseVITAMIN B12 AND [id number] 04:33:00 Test Item Value Reference Range Interpretation Comments VITAMIN B12 (BEAKER) (test code = 599 pg/mL 213-816 774) FOLATE (BEAKER) (test code = 362) 7.7 ng/mL >=7.0 Effective 03/02/2014: Folate Reference Range ChangeNew: >=7.0 Previous: >=5.4HEPATIC FUNCTION [id number] 03:58:00 Test Item Value Reference Range Interpretation [...] = 12 U/L 6-55 347) BASIC METABOLIC [id number] 03:58:00 Test Item Value Reference Range Interpretation [...] ESTIMATED GFR. CBC W/PLT COUNT & AUTO [id number] 03:45:00 Test Item Value Reference Range Interpretation [...] K/ L 0.00-0.20 (test code = 417) 0.05TSLT4568-80-25 03:18:00 Test Item Value Reference Range Interpretation Comments PARTIAL THROMBOPLASTIN TIME 42.6 seconds 22.5-36.0 H (BEAKER) (test code = 760) PROTHROMBIN TIME/[id number] 03:17:00 Test Item Value Reference Range Interpretation Comments PROTIME (BEAKER) (test code = 13.0 seconds 11.7-14.7 759) INR (BEAKER) (test code = 370) 1.0 <=5.9 RECOMMENDED COUMADIN/WARFARIN INR THERAPY RANGESSTANDARD DOSE: 2.0 - 3.0 Includes: PROPHYLAXIS forvenous thrombosis, systemic embolization; TREATMENT for venous thrombosis and/or pulmonary embolus.HIGH RISK: Target INR is 2.5-3.5 for patients with mechanical heart valves.BASIC METABOLIC [id number] 02:48:00 Test Item Value Reference Range Interpretation [...] ESTIMATED GFR. CBC W/PLT COUNT & AUTO IKQYPHAIGYKG3422-85-10 02:47:00 Test Item Value Reference Range Interpretation [...] K/ L 0.00-0.20 (test code = 417) 0.26YHGLIGFSO1563-35-43 09:18:0014.0[facility] DvuhmokKMREFMOJD7627-61-43 09:18:00 110[facility] LvzcvsqIRULKIPZZ2959-11-95 09:18:0026[facility] HermannCHEMISTRY 2011-09-29 09:18:009.1[facility] KqlezoaMXQPRYSII6399-73-35 09:18:81928Gjexpaax XkehbsoZQEQHQEWQ5324-15-81 09:18:004.0[facility] TrkwdeuEAHGAPJXY8051-99-75 09:18:0011[facility] IbhcypyVAXYLOILN4004-87-80 09:18:15890Epewqvep [place] ZJUVXOZKQ6015-83-03 09:18:000.7[facility] IkcgwkuMMAMTIJXDY7731-24-63 09:18:0013.6 [facility] RkmefpdJCLEDFLWQN6186-26-85 09:18:0098.9[facility] HermannHEMATOLOGY 2011-09-29 09:18:0038.8[facility] NfvrglhROTXPJMLRR9665-86-32 09:18:009.7[facility] FvkvawpFWIRHYSLRH4847-04-09 09:18:12402Teaphmeu IfaljjmUPTXFRAPGD6080-86-96 09:18:0034.5[facility] QyxsqkhOEURTZCFTO2387-72-70 09:18:00 Test Item Value Reference Range Interpretation Comments MCH (test code = MCH) 34.2 pg 27.0-31.0 H [facility] CwaovkiUEVLKMHZFZ7734-57-25 09:18:0013.4[facility] HermannHEMATOLOGY 2011-09-29 09:18:005.8[facility] PfbelsnEUQYFKWJSO6200-44-28 09:18:003.92[facility] GjbokwuOPMHVOTYCC6042-00-43 09:18:000.8[facility] KwjshheRQFTFPWRYA3885-74-27 09:18:002.4[facility] QfoegnsJZHVKUTDXW1147-90-67 09:18:000.0[facility] Miguel AGNQTWMVFH3537-04-51 09:18:000.2[facility] XnkscctAPNLJMBHMT2637-05-28 09:18:00 41.3[facility] OkrumnvEPCQZZXCXS6012-54-77 09:18:0041.0[facility] HermannHEMATOLOGY 2011-09-29 09:18:003.9[facility] NkcbsftHKXBWOFGYY7368-26-63 09:18:002.4[facility] XxwdllfGVYTRVUXGS1055-02-89 09:18:000.3[facility] RtjdrltIQNSBXEVQJ1137-79-99 09:18:0013.5[facility] HermannBEDSIDE GLUCOSE JNWHBGU2229-68-02 21:40:18864 [facility] BpzfgguHUVFQEGQQ3954-07-47 10:14:0030[facility] HermannCHEMISTRY 2011-09-25 10:14:009.0[facility] YwiddrwPZMMBMAJX8967-09-73 10:14:0086[facility] PutsctcCDGLZTEJT8923-47-53 10:14:004.4[facility] TrbxyquSTOYBTVHM3838-53-84 10:14:68444Wavdplqd TohpkinLRXDKSRRO7778-21-38 10:14:0013[facility] [place] XLXXOZMAP3763-32-01 10:14:000.7[facility] MzjoildJRUOSEQIM6774-21-10 10:14:51070 [facility] WiksfgbHFGHDUXNU3947-52-02 10:14:0011.4[facility] HermannHEMATOLOGY 2011-09-25 10:14:000.5[facility] RawctvgXGYROXSBOB9113-91-68 10:14:003.1[facility] NelulwfMNLMNTCDBV0186-32-03 10:14:003.1[facility] BgnwbwuFLSCQISLHS4438-55-08 10:14:002.3[facility] YbvfvdhHOFGBGITZN7249-50-72 10:14:000.9[facility] [place] KKCPFXJPRO1874-66-55 10:14:0048.3[facility] NzobntfEKATMBMKVM0649-75-94 10:14:00 34.9[facility] IcheoqyUCARIFGABA1812-80-54 10:14:001+ *ABN*(09/25/2011 05:14:00) [facility] JqwleczUFCHZVGJCP3832-05-25 10:14:000.2[facility] HermannHEMATOLOGY 2011-09-25 10:14:0013.2[facility] ArutsgqBSWXASRQOD8507-36-06 10:14:000.0[facility] LlrqjpnAAGMTGHIQS9731-08-21 10:14:009.1[facility] VliwkjzZIPWRJQJSY2686-96-33 10:14:45787Bypsibhn HkicljpZCIVSATAWS7468-18-07 10:14:0014.3[facility] Miguel AQWBYYBOYB7296-60-99 10:14:0034.1[facility] TogvoabXLQWEHCPSL8290-92-83 10:14:00 42.1[facility] CutdmvbHFDNPQHHQR1983-85-65 10:14:0014.4[facility] HermannHEMATOLOGY 2011-09-25 10:14:006.4[facility] XwpkawlURNMUCBDHG4387-98-09 10:14:0099.3[facility] IaargumEDDGSBJWVH9972-04-88 10:14:004.24[facility] GaulnxlVCVHOFUJDH8581-01-46 10:14:00 Test Item Value Reference Range Interpretation Comments MCH (test code = MCH) 33.9 pg 27.0-31.0 H [facility] EgjahajBHCZLTFGQ5667-94-21 09:04:0095[facility] HermannCHEMISTRY 2011-09-18 09:04:009[facility] UisbfllYLCABKIWF7897-19-07 09:04:000.6[facility] OsluenrRSPAITEFH3153-96-58 09:04:01393Amjyzvme VyexiokIMBXZDHFO2550-83-62 09:04:004.1[facility] KogmittQQHAGUEIH2249-36-01 09:04:27218Ncerplcc [place] THEAULGRS0877-90-62 09:04:0025[facility] GfjwxjtUUXQOFYBZ5714-00-52 09:04:009.0 [facility] JieknibGOUVAHVVZ3289-10-94 09:04:0013.1[facility] HermannHEMATOLOGY 2011-09-18 09:04:001+ *ABN*(09/18/2011 04:04:00)[facility]annHEMATOLOGY 2011-09-18 09:04:000.9[facility] OqhgxhoSXBFGZBTSF8698-25-76 09:04:002.1[facility] NzypartWMMUPHEANC0993-20-52 09:04:0054.6[facility] OgegivbWIICQZFIAT0337-41-09 09:04:000.2[facility] ZfuutdfXAAWFPENOJ1623-58-48 09:04:002.3[facility] [place] YLWVFZCMDW2782-54-21 09:04:0012.9[facility] PsxwcbjZXXFNALMBG6619-16-19 09:04:00 29.9[facility] GrmljqiXWUAMGYZWY2117-13-96 09:04:000.3[facility] HermannHEMATOLOGY 2011-09-18 09:04:000.0[facility] VhnhcjyONSAWSPSIA1940-90-10 09:04:003.8[facility] ToeefsxCEVVFMYWEI8468-13-42 09:04:0043.5[facility] IpbfbohRKMOLRILLJ8277-91-50 09:04:0099.4[facility] CiczznvULQXFFQLSR6400-76-93 09:04:0014.8[facility] Miguel VADZVGEMPA7324-90-92 09:04:004.37[facility] IgdvzkbLLEFAACNZA0390-72-58 09:04:00 6.9[facility] LdtcrmqJOSMADQWHD6641-63-24 09:04:73036Uajohird HermannHEMATOLOGY 2011-09-18 09:04:0034.2[facility] OlqtnkwAPDQIMYCYZ0710-81-36 09:04:009.1[facility] McfftgvGGSGGPHFBK9462-58-49 09:04:0013.9[facility] WggkotdHDOSIXHGQF0374-59-48 09:04:00 Test Item Value Reference Range Interpretation Comments MCH (test code = MCH) 33.9 pg 27.0-31.0 H [facility] IfvvcjkLPJTJFSEZG6599-32-36 13:25:00<1[facility] HermannURINALYSIS 2011-09-16 13:25:001[facility] HfuripsRKPWQPTLHR9929-45-30 13:25:00Few /LPF *NA*(09/16/2011 08:25:00)[facility] XcqgbmhVTSBFFRUFQ8931-13-82 13:25:00Negative mg/dL *NA*(09/16/2011 08:25:00)[facility] TdalkjwFMIDVXKTKH3632-51-25 13:25:00 Negative *NA*(09/16/2011 08:25:00)[facility] XotfbjkVSCEMYTZFS6926-77-21 13:25:00 Negative (09/16/2011 08:25:00)[facility] GjdevlgXOSSLOTSZQ1042-01-27 13:25:00 Negative (09/16/2011 08:25:00)[facility] GejffquDZNOBZQPXZ9455-94-27 13:25:00 Negative (09/16/2011 08:25:00)[facility] VfuqtgyEUGUZTZYTC5163-49-03 13:25:00 Occasional /LPF *NA*(09/16/2011 08:25:00)[facility] PqeemssXWUQNLMZTV0326-45-60 13:25:00Negative mg/dL *NA*(09/16/2011 08:25:00)[facility]annURINALYSIS 2011-09-16 13:25:00Negative mg/dL (09/16/2011 08:25:00)[facility] ENRXFEAOUS3846-52-71 13:25:00Yellow *NA*(09/16/2011 08:25:00)[facility] RYPIJCKDYC0303-31-04 13:25:005.5[facility] CaixkmzUENSLJFVKA4949-95-42 13:25:00 1.017[facility] ZdduqnwDIJEFCXMAM6510-23-61 13:25:00Clear (09/16/2011 08:25:00) [facility] UeedducNLNVGGNCBQ2699-68-27 08:42:00Few /LPF *NA*(09/15/2011 03:42:00) [facility] UosodpmTIGITMBKOO7889-79-95 08:42:001[facility] HermannURINALYSIS 2011-09-15 08:42:00Negative (09/15/2011 03:42:00)[facility] HermannURINALYSIS 2011-09-15 08:42:00Negative (09/15/2011 03:42:00)[facility]annURINALYSIS 2011-09-15 08:42:00Negative (09/15/2011 03:42:00)[facility] HermannURINALYSIS 2011-09-15 08:42:005.5[facility] GzmtwgvHGRFGJDPPA2979-49-77 08:42:00Negative mg/dL (09/15/2011 03:42:00)[facility] DuodocyHCHBLHCNBN5798-06-22 08:42:00Negative mg/dL *NA*(09/15/2011 03:42:00)[facility] NotyufkAQBSOWEZKU3272-00-57 08:42:00 Negative mg/dL *NA*(09/15/2011 03:42:00)[facility] YnuqskjUVFKLTPBIS0463-14-14 08:42:00Negative *NA*(09/15/2011 03:42:00)[facility] IfgkshgWQKGDHOMMC5441-47-85 08:42:00Yellow *NA*(09/15/2011 03:42:00)[facility] DgfatefQZWSZSHNJP5960-10-93 08:42:00Slight *ABN*(09/15/2011 03:42:00)[facility] EkuhetzATIWWMYRAW5883-95-77 08:42:001.012[facility] HwubhuyQDQCOTDMA8420-78-04 08:40:003.390[facility] IDOCVDJZX5610-20-32 08:40:008.5[facility] KrrofvcLUOGBMVEV6961-04-08 08:40:0033 [facility] LupehzyOGZUWAMNQ0917-74-85 08:40:003.390[facility] HermannCHEMISTRY 2011-09-15 08:40:006.4[facility] RmeepaxILMCWSGAC0393-56-83 08:40:0014[facility] [id number] 08:40:000.4[facility] [id number] 08:40:0024[facility] XwlkaddBCKTVGEZV9591-15-78 08:40:0081[facility] LTFXNYJVZ0766-58-58 08:40:003.3[facility] BvawkhuKWGXUOIYQ3444-52-41 08:40:001.1 [facility] MmlwycyVJXLVPJSP2183-64-74 08:40:0014Mem[facility]inj HermannCHEMISTRY 2011-09-15 08:40:003.1[facility] DyzrydcPGBUFKEMX1273-23-30 08:40:002.8Mesdrinj EzzyamaBZRPJIZPLG7567-09-19 08:40:00 Test Item Value Reference Range Interpretation Comments PTT (test code = PTT) 32.4 s 22.9-35.8 N [facility]0064-18-74 08:40:00 Test Item Value Reference Range Interpretation Comments PT (test code = PT) 13.0 s 12.0-14.7 N [id number] 08:40:000.98[facility]
[2020-02-25] MEDS ORDERED: MORPHINE 4 MG/ML SYR ONE (16:31)
--- NOTE | 2020-02-25 17:03 | RAD REPORT ---
EXAM DESCRIPTION: RAD - Femur Right - 02/25/2020 4:51 pm CLINICAL HISTORY: Leg pain FINDINGS: No fracture is seen. No bony lesion seen
--- NOTE | 2020-02-25 17:04 | RAD REPORT ---
EXAM DESCRIPTION: RAD - Femur Left - 02/25/2020 4:50 pm CLINICAL HISTORY: Left leg pain FINDINGS: . No fracture is seen. No bony lesion is displayed.
--- NOTE | 2020-02-25 17:16 | RAD REPORT ---
EXAM DESCRIPTION: CT - Head C Spine Cap Wo Con - 02/25/2020 5:00 pm TECHNIQUE: Computed axial tomography of the head and cervical spine was obtained. Coronal and sagitt al reconstruction was performed Computed axial tomography of the chest, abdomen and pelvis was obtained. Contrast was not requested. All CT scans are performed using dose optimization technique as appropriate and may include automated exposure control or mA/KV adjustment according to patient size. CLINICAL HISTORY: Head and neck injury with chest and abdominal pain status post fall COMPARISON: 2018 and 2019 cat scans FINDINGS: An intracranial bleed is not seen. The ventricles are normal in caliber. An extra-axial fluid collection is not noted. . Fluid within the sinuses/mastoids is not seen. A cervical fracture is not seen. No dislocation is noted. The evaluation of mediastinum, jaden, vessels, solid organs and bowel are limited secondary to the lac k of contrast administration. A mediastinal hematoma is not noted. A pleural effusion is not seen. A lung contusion is not present. The liver,spleen, pancreas, adrenals,kidneys and bladder did not demonstrate a traumatic injury. IMPRESSION: 1. No acute intracranial abnormality is seen. 2. A cervical fracture is not visualized. If the patient continues have symptoms to suggest intracran ial/spinal cord pathology MRI be recommended 3. No traumatic abnormality involving the chest/abdomen/pelvis.
--- NOTE | 2020-02-25 17:54 | ER ---
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 Coronavirus screen: Client denies travel out of the [place] in the last 14 days. At this time, the client does not indicate any symptoms associated with coronavirus-19. Ebola Screen: Patient negative for fever greater than or equal to 101.5 degrees Fahrenheit, and additional compatible Ebola Virus Disease symptoms Patient denies exposure to infectious person. Patient denies travel to an Ebola-affected area in the 21 days before illness onset. No symptoms or risks identified at this time. Initial Sepsis Screen: Does the patient meet any 2 criteria? No. Patient's initial sepsis screen is negative. Does the patient have a suspected source of infection? No. Patient's initial sepsis screen is negative. Risk Assessment: Do you want to hurt yourself or someone else? Patient reports no desire to harm self or others. Onset of symptoms was February 25, 2020. 15:50 Method Of Arrival: EMS: [facility] dm5 15:50 Acuity: GELACIO 4 dm5 Historical: - Allergies: 15:52 Aspirin; dm5 15:52 PENICILLINS; dm5 - Home Meds: 16:01 oxycodone 30 mg Oral tab three times a day [Active]; acetaminophen 325 mg Oral tab as aa5 needed [Active]; Depakote 500 mg Oral TbEC 1 tab 2 times per day [Active]; Keppra 1,000 mg Oral tab 1 tab every 12 hours [Active]; - PMHx: 16:01 Chronic pain; CVA; Hypertension; Pneumonia; Seizures; aa5 - PSHx: 16:01 Heart stents; CABG; aa5 Screenin:50 Abuse screen: Denies threats or abuse. Nutritional screening: No deficits noted. aa5 Tuberculosis screening: No symptoms or risk factors identified. Fall Risk Fall in past 12 months (25 points). Secondary diagnosis (15 points) CVA, Ambulatory Aid- Crutches/Cane/Walker (15 pts). Total Thacker Fall Scale indicates High Risk Score (45 or more points). Fall prevention measures have been instituted. Side Rails Up X 2 Placed Close to Nursing Station. Assessment: 15:50 General: Appears uncomfortable, Behavior is calm, cooperative. Pain: Complains of pain aa5 in back, pelvis, right leg and left leg. Neuro: Level of Consciousness is awake, alert, obeys commands, Oriented to person, place, time, situation. Cardiovascular: Heart tones S1 S2 present Rhythm is regular. Respiratory: Airway is patent Respiratory effort is even, unlabored, Respiratory pattern is regular, symmetrical. GI: Abdomen is round non-distended, Bowel sounds present X 4 quads. Abd is soft and non tender X 4 quads. : No signs and/or symptoms were reported regarding the genitourinary system. EENT: No signs and/or symptoms were reported regarding the EENT system. Derm: Skin is pink, warm \T\ dry. Musculoskeletal: Reports pain in left hip and right hip. 16:20 Reassessment: Patient is alert, oriented x 3, equal unlabored respirations, skin aa5 warm/dry/pink. 17:20 Reassessment: Patient is alert, oriented x 3, equal unlabored respirations, skin aa5 warm/dry/pink. Patient states symptoms have not improved. GEAR CHANGER was notified. . 18:00 Reassessment: Patient is alert, oriented x 3, equal unlabored respirations, skin aa5 warm/dry/pink. Vital Signs: 15:52 BP 136 / 75; Pulse 80; Resp 18 S; Temp 98.0(O); Pulse Ox 96% on R/A; Pain 10/10; aa5 17:20 BP 134 / 72; Pulse 78; Resp 16 S; Pulse Ox 97% on R/A; Pain 10/10; aa5 ED Course: 15:50 Patient arrived in ED. dm5 15:50 Arm band placed on. aa5 15:50 Patient has correct armband on for positive identification. Placed in gown. Bed in low aa5 position. Call light in reach. Side rails up X2. Pulse ox on. NIBP on. 15:52 Triage completed. dm5 15:55 Cherelle Amado FNP-C is [facility]. kb 15:55 Edil Pace MD is Attending Physician. kb 15:59 Leilani Gamble, RN is Primary Nurse. aa5 16:50 Femur Left XRAY In Process Unspecified. EDMS 16:50 Femur Right XRAY In Process Unspecified. EDMS 17:00 CT Traumagram (Head C Spine CAP wo con) In Process Unspecified. EDMS 18:00 No provider procedures requiring assistance completed. Patient did not have IV access aa5 during this emergency room visit. Administered Medications: 16:20 Drug: morphine 4 mg Route: IM; Site: right deltoid; aa5 17:20 Follow up: Response: No adverse reaction; Pain is unchanged, physician notified aa5 18:05 Drug: [place] 10 mg-325 mg 1 tabs Route: PO; aa5 18:05 Follow up: Response: No adverse reaction; Medication administered at discharge. aa5 18:05 Drug: Flexeril 10 mg Route: PO; aa5 18:05 Follow up: Response: No adverse reaction; Medication administered at discharge. aa5 Outcome: 17:53 Discharge ordered by . kb 18:00 Discharged to home via wheelchair, with family. aa5 18:00 Condition: stable 18:00 Discharge instructions given to patient, Instructed on discharge instructions, follow up and referral plans. Demonstrated understanding of instructions, follow-up care. 18:09 Patient left the ED. aa5 Signatures: Dispatcher [employer] EDWY Cherelle Amado FNP-C FNP-Ckb Markwardt, Deana, RN RN dm5 Leilani Gamble, RN RN aa5
--- NOTE | 2020-02-25 17:54 | EDPHYS ---
Physician Documentation [facility] Name: Bryan Graf Age: 69 yrs Sex: Male : 1950 Arrival Date: 02/25/2020 Time: 15:50 Bed 24 Private MD: ED Physician Edil Pace HPI: 02/24 18:59 This 69 yrs old Male presents to ER via EMS with complaints of Leg Pain. kb 18:55 Details of fall: The patient fell from an upright position, while walking. Onset: The kb symptoms/episode began/occurred just prior to arrival. Associated injuries: The patient sustained neck injury, pain, pain with movement, upper back injury, pain, pain with movement, injury to the low back, pain, pain with movement, right leg and left leg, painful injury. Severity of symptoms: At their worst the symptoms were moderate, in the emergency department the symptoms are unchanged. The patient has experienced similar episodes in the past, chronically. The patient has not recently seen a physician. Pt reports he had chronic pain that causes him to fall sometimes. States he fell today and landed on his back. c/o bilateral leg pain and back pain. States he did hit his head, but denies loc. States he has been told he should use a wheelchair instead of cane, but refuses to use the wheelchair to get around.. Historical: - Allergies: 15:52 Aspirin; dm5 15:52 PENICILLINS; dm5 - Home Meds: 16:01 oxycodone 30 mg Oral tab three times a day [Active]; acetaminophen 325 mg Oral tab as aa5 needed [Active]; Depakote 500 mg Oral TbEC 1 tab 2 times per day [Active]; Keppra 1,000 mg Oral tab 1 tab every 12 hours [Active]; - PMHx: 16:01 Chronic pain; CVA; Hypertension; Pneumonia; Seizures; aa5 - PSHx: 16:01 Heart stents; CABG; aa5 ROS: 18:54 Constitutional: Negative for fever, chills, and weight loss, Cardiovascular: Negative kb for chest pain, palpitations, and edema, Respiratory: Negative for shortness of breath, cough, wheezing, and pleuritic chest pain, Abdomen/GI: Negative for abdominal pain, nausea, vomiting, diarrhea, and constipation, : Negative for injury, bleeding, discharge, and swelling, Skin: Negative for injury, rash, and discoloration, Neuro: Negative for headache, weakness, numbness, tingling, and seizure. 18:54 Back: Positive for pain at rest, pain with movement. 18:54 MS/extremity: Positive for pain, tenderness, of the right leg and left leg. Exam: 18:54 Constitutional: This is a well developed, well nourished patient who is awake, alert, kb and in no acute distress. Head/Face: Normocephalic, atraumatic. Chest/axilla: Normal chest wall appearance and motion. Nontender with no deformity. No lesions are appreciated. Cardiovascular: Regular rate and rhythm with a normal S1 and S2. No gallops, murmurs, or rubs. Normal PMI, no JVD. No pulse deficits. Respiratory: Lungs have equal breath sounds bilaterally, clear to auscultation and percussion. No rales, rhonchi or wheezes noted. No increased work of breathing, no retractions or nasal flaring. Abdomen/GI: Soft, non-tender, with normal bowel sounds. No distension or tympany. No guarding or rebound. No evidence of tenderness throughout. Back: No spinal tenderness. No costovertebral tenderness. Full range of motion. Skin: Warm, dry with normal turgor. Normal color with no rashes, no lesions, and no evidence of cellulitis. Neuro: Awake and alert, GCS 15, oriented to person, place, time, and situation. Cranial nerves II-XII grossly intact. Motor strength 5/5 in all extremities. Sensory grossly intact. Cerebellar exam normal. Normal gait. 18:54 Musculoskeletal/extremity: Extremities: grossly normal except: noted in the right leg and left leg: pain, tenderness, ROM: intact in all extremities, Circulation is intact in all extremities. Sensation intact. Weight bearing: can bear weight with assistance only, uses cane. Vital Signs: 15:52 BP 136 / 75; Pulse 80; Resp 18 S; Temp 98.0(O); Pulse Ox 96% on R/A; Pain 10/10; aa5 17:20 BP 134 / 72; Pulse 78; Resp 16 S; Pulse Ox 97% on R/A; Pain 10/10; aa5 MDM: 15:56 Patient medically screened. kb 17:20 Data reviewed: vital signs, nurses notes. Data interpreted: Pulse oximetry: on room air kb is 96 %. Interpretation: normal. Counseling: I had a detailed discussion with the patient and/or guardian regarding: the historical points, exam findings, and any diagnostic results supporting the discharge/admit diagnosis, radiology results, the need for outpatient follow up, a family practitioner, to return to the emergency department if symptoms worsen or persist or if there are any questions or concerns that arise at home. 02/24 16:15 Order name: CT Traumagram (Head C Spine CAP wo con); Complete Time: 17:19 kb 02/24 16:15 Order name: Femur Left XRAY; Complete Time: 17:07 kb 02/24 16:15 Order name: Femur Right XRAY; Complete Time: 17:05 kb Administered Medications: 16:20 Drug: morphine 4 mg Route: IM; Site: right deltoid; aa5 17:20 Follow up: Response: No adverse reaction; Pain is unchanged, physician notified aa5 18:05 Drug: [place] 10 mg-325 mg 1 tabs Route: PO; aa5 18:05 Follow up: Response: No adverse reaction; Medication administered at discharge. aa5 18:05 Drug: Flexeril 10 mg Route: PO; aa5 18:05 Follow up: Response: No adverse reaction; Medication administered at discharge. aa5 Disposition: 02/25 05:10 Co-signature as Attending Physician, Edil Pace MD I agree with the assessment and kdr plan of care. Disposition: 02/25/20 17:53 Discharged to Home. Impression: Chronic pain syndrome, Fall on same level from slipping, tripping and stumbling. - Condition is Stable. - Discharge Instructions: Chronic Pain, Fall Prevention in the Home, [id number]. - Medication Reconciliation Form, Thank You Letter, Antibiotic Education, Prescription Opioid Use form. - Follow up: Private Physician; When: 2 - 3 days; Reason: Recheck today's complaints, Continuance of care, Re-evaluation by your physician. Follow up: Emergency Department; When: As needed; Reason: Worsening of condition. Signatures: Dispatcher [employer] Cherelle Avilez, Dena Massey, RN RN dmEdil Lim MD MD [facility] Leilani Gamble, RN RN aa5 Corrections: (The following items were deleted from the chart) 02/24 18:09 17:53 02/25/2020 17:53 Discharged to Home. Impression: Chronic pain syndrome; Fall on aa5 same level from slipping, tripping and stumbling. Condition is Stable. Forms are Medication Reconciliation Form, Thank You Letter, Antibiotic Education, Prescription Opioid Use. Follow up: Private Physician; When: 2 - 3 days; Reason: Recheck today's complaints, Continuance of care, Re-evaluation by your physician. Follow up: Emergency Department; When: As needed; Reason: Worsening of condition. kb
[2020-02-25] MEDS ORDERED: CYCLOBENZAPRINE 10 MG TAB ONE (18:11)
[2020-02-25] MEDS ORDERED: HYDROCODONE/APAP 10/325 TAB ONE (18:12)
[2020-02-25 20:42] VITALS: BP 136/75; TEMP 98; O2SAT 96
== END 2020-02-25 18:09 | disposition home or self-care (01) ==
LOC: ER 15:47
DX: G89.4 Chronic pain syndrome (principal); W18.30XA Fall on same level, unspecified, initial encounter; Y93.01 Activity, walking, marching and hiking; Y92.9 Unspecified place or not applicable; Z88.0 Allergy status to penicillin; Z88.6 Allergy status to analgesic agent; Z86.73 Personal history of transient ischemic attack (TIA), and cerebral infarction without residual deficits; Z95.1 Presence of aortocoronary bypass graft; Z95.818 Presence of other cardiac implants and grafts; I10 Essential (primary) hypertension
CPT/HCPCS: 70450; 71250; 72125; 96372; 99284

== ENCOUNTER 2020-09-22 06:02 | Observation (INO) | payer OTHER ==
--- OUTSIDE RECORDS SUMMARY | 2020-09-22 06:08 | XMS REPORT | Continuity of Care Document ---
:[address] [facility] t Address [address] [place] [address] Care Team Providers Name Role Phone Rebecca [...] [facility] - status status 00:00: Medical 00 [place] Ptosis, Ptosis, Disease Active [facility] left left 8-25 [facility] - 00:00: Medical 00 [place] COPD COPD Disease Active [facility] (chronic (chronic 8-25 [facility] - obstructiv obstructiv 00:00: Fl dical e e 00 [place] pulmonary pulmonary disease) disease) S/P CABG x [...] embolism 8-14 [facility] - 00:00: Medical 00 [place] Left-sided Left-sided Disease Active [facility] muscle muscle 6-26 [facility] - weakness weakness 00:00: Medica l 00 [place] Muscle Muscle Disease Active [facility] cramps cramps 6-26 [facility] - 00:00: Medical 00 [place] Tension Tension Disease Active [facility] type type 6-26 [facility] - headache headache 00:00: Medica l 00 [place] CVA CVA Disease Active [facility] (cerebral [...] kes - ation ation 00:00: Medical 00 [place] Cellulitis Cellulitis Disease Active [facility] of 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:00: 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 space of 00 [place] mouth mouth Mandibular Mandibular Disease Active [facility] abscess abscess 3-18 [facility] - 00:00: Medical 00 [place] CVA Diagnosis Active 2011-09-21 Mem oria 5-31 14:49:00 l CVA 06:00: [place] 00 Active 09/13/2011 [facility] Dysarthria Problem Active 2011-10-03 M emoria 08:09:33 l Miguel Dysarthria Active Problem 10/03/2011 [facility] Weakness Problem Active 2011-10-03 Mem oria 08:09:33 l Weakness Richard n Active Problem 10/03/2011 [facility] CVA Diagnosis Active 2011-09-21 Mem oria 14:49:00 l CVA [place] Active Rehabilita tion Allergies, Adverse Reactions, Alerts Allergy Allergy Status Severity Reaction(s) Onset Inactive Treating Comm ents Source Name Type Date Date Clinician Aspirin Propensi Active Hives [facility] (Tartraz ty to 3-18 [facility] - ine adverse 00:00: Medical Only) reaction 00 [place] Aspirin Propensi Active Hives [facility] ty to 3-16 [facility] - adverse 00:00: Medical reaction 00 [place] Penicill Propensi Active Hives, [facility] to Swelling 3-16 [facility] - adverse 00:00: Medical reaction 00 [place] aspirin aspirin Active Memoria l [place] codeine codeine Active Memoria l [place] penicill penicill Active Memori a ins ins l [place] Family History Family Member Diagnosis Comments Start Date Stop Date Source Natural mother Diabetes [facility] Social History Social Habit Start Date Stop Date Quantity Comments Source Sex Assigned At [facility] Alcohol intake 2016-12-13 2016-12-13 Current [facility] - 00:00:00 00:00:00 non-drinker of Medical Ce nter alcohol (finding) Cigarettes smoked 2016-12-13 2016-12-13 [facility] - current (pack per 00:00:00 00:00:00 [facility] day) - Reported Tobacco use and 2016-12-13 2016-12-13 Never used [facility] - exposure 00:00:00 00:00:00 [facility] Smoking Status Start Date Stop Date Source Current every day smoker 2016-12-13 00:00:00 [facility] Medications Ordered Filled Start Stop Current Ordering [...] 40mg QD Take [address] [facility] e -08 tablet (40 [facility] - (PROTONIX) 00:00: mg total) Me dical 40 MG 00 by mouth Center tablet daily. Soma 2011-0 Yes 1, PO, Memoria 6-16 Substituti l 23:36: on [place] 37 Allowed, TAB OXYcodone 2011-0 Yes 1, PO, Memori a 6-16 PRN, as l 23:36: needed for [place] 23 pain, Substituti on Allowed, TAB Ambien 5 mg 2011-0 Yes Meilani H 5 mg, 1 Memoria oral tablet 6-15 [place] tab, PO, l 19:27: Bedtime, Miguel 59 30 tab, Substituti on Allowed, TAB Keppra 750 2012-0 Yes Meilani H 750 mg, 1 Memoria mg oral 6-15 [place] tab, PO, l tablet 19:27: Q12H, 60 Miguel 52 tab, Substituti on Allowed, TAB famotidine 2011-0 Yes Meilani H 20 mg, 1 Memoria 20 mg oral 6-15 [place] tab, PO, l tablet 19:27: BID, 60 [place] 44 tab, Substituti on Allowed, TAB Colace 100 Yes Meilani H 100 mg, 1 Memoria mg oral 6-15 [place] cap, PO, l capsule 19:27: BID, 60 [place] 40 cap, Substituti on Allowed, CAP Plavix [...] 6-09 [place] Route: PO, l 02:00: Bedtime, [place] 00 Start date: 09/21/11 21:00:00, Duration: 30 [...] 30 day, Stop date: 10/21/11 7:00:00 Plavix 0 No Jeff 75 mg, 1 Memori a 02 Jef tab, l 14:00: [place] Route: PO, [...] - Jef supp, l 03:49: [place] Route: VA, Richard n 00 Drug form: SUPP, Bedtime, PRN Constipati on, Start date: 09/14/11 22:49:00, Duration: 30 day, Stop date: 10/14/11 22:48:00 zolpidem 2011- No Marcial De 5 mg, 1 Memoria -02 [place] tab, l 03:49: Route: PO, Miguel 00 Drug form: TAB, Bedtime, PRN Insomnia, [...] 80 mg, 1 M emoria n 09-13 Jfe tab, l 22:00: [place] Route: PO, Richard n 00 Drug form: TAB, QPM, Start date: 09/14/11 17:00:00, Duration: 30 day, Stop date: 10/13/11 17:00:00 enoxaparin 2011-0 No Jeff 40 mg, 0.4 Memoria 09-13 Jef mL, Route: l 20:00: [place] SUB-Q, [place] 00 Drug form: INJ, Q24H, Start date: [...] Systolic (mm Hg) 2011-10-01 10:34:00 Luan rial [place] Respitory Rate 2011-10-01 10:34:00 Memori al [place] Heart Rate 2011-10-01 10:34:00 [facility] Temperature Oral (F) 2011-10-01 10:34:00 97.6 F [facility] [place] Diastolic (mm Hg) 2011-10-01 10:34:00 Mem orial Miguel Diastolic (mm Hg) 2011-10-01 00:44:00 Mem orial [place] Respitory Rate 2011-10-01 00:44:00 Memori al [place] Heart Rate 2011-10-01 00:44:00 [facility] [place] Systolic (mm Hg) 2011-10-01 00:44:00 Luan rial [place] Temperature Oral (F) 2011-10-01 00:44:00 98.1 F [facility] Systolic (mm Hg) 2011-09-30 21:00:00 Luan rial [place] Diastolic (mm Hg) 2011-09-30 21:00:00 Mem orial [place] Heart Rate 2011-09-30 21:00:00 [facility] Respitory Rate 2011-09-30 21:00:00 Memori al Miguel Temperature Oral (F) 2011-09-30 10:03:00 97.8 F [facility] [place] Height 2011-09-15 03:49:00 172.72 cm [facility] Miguel Weight 2011-09-15 03:49:00 [facility] [place] Procedures This patient has no known procedures. Results Test Description Test Time Test Comments Results Result Comments Source B-TYPE NATRIURETIC FACTOR (BNP) 2016-12-21 05:56:00 Test Item Value Reference Range Interpretation Comme nts B-TYPE NATRIURETIC PEPTIDE (BEAKER) (test code = 700) 136 pg/mL 0-100 H COMPREHENSIVE METABOLIC [id number] 05:53:00 Test Item Value Reference Range Interpretation [...] 8.4-10.2 (test code = 697) AST (SGOT) ([facility]) 67 U/L 5-34 H (test code = 353) ALT (SGPT) ([facility]) 88 U/L 6-55 H (test code = 347) EGFR ([facility]) (test 139 ESTIMATE D GFR IS code = 1092) mL/min/1.73 sq NOT ACCURA TE m CREATININE CLEARANCE IN PREDICTING GLOMERULAR FILTRATION RATE . ESTIMATED GFR I S NOT APPLICABLE FOR DIALYSIS PATIEN TS. POCT-GLUCOSE [id number] 16:33:00 Test Item Value Reference Range Interpretation Comments POC-GLUCOSE METER 116 mg/dL 70-110 H TESTED AT [place] [address] ([facility]) (test code = [employer] [facility] 1538) [address] POCT-GLUCOSE [id number] 11:08:00 Test Item Value Reference Range Interpretation Comments POC-GLUCOSE METER 133 mg/dL 70-110 H TESTED AT [place] [address] ([facility]) (test code = [employer] [facility] 1538) [address] POCT-GLUCOSE [id number] 06:11:00 Test Item Value Reference Range Interpretation Comments POC-GLUCOSE METER 105 mg/dL 70-110 TESTED AT [place] [address] ([facility]) (test code = [employer] [facility] 1538) [address] POCT-GLUCOSE [id number] 20:28:00 Test Item Value Reference Range Interpretation Comments POC-GLUCOSE METER 124 mg/dL 70-110 H TESTED AT [place] [address] ([facility]) (test code = [employer] [facility] 1538) 88648 POCT-GLUCOSE [id number] 16:46:00 Test Item Value Reference Range Interpretation Comments POC-GLUCOSE METER 113 mg/dL 70-110 H TESTED AT [place] [address] ([facility]) (test code = [employer] [place] 1538) [address] POCT-GLUCOSE [id number] 11:46:00 Test Item Value Reference Range Interpretation Comments POC-GLUCOSE METER 113 mg/dL 70-110 H TESTED AT [place] [address] ([facility]) (test code = [employer] [place] 1538) [address] URINE [id number] 09:54:00 Test Item Value Reference Range Interpretation Comments CULTURE ([facility]) (test KLEBSIELLA A >100, 000 col/mL [...] S Sulfamethoxazole (test code = 47) POCT-GLUCOSE [id number] 06:46:00 Test Item Value Reference Range Interpretation Comments POC-GLUCOSE METER 111 mg/dL 70-110 H TESTED AT [place] [address] ([facility]) (test code = TISHA Cazares [facility] 1538) [address] POCT-GLUCOSE [id number] 20:48:00 Test Item Value Reference Range Interpretation Comments POC-GLUCOSE METER 128 mg/dL 70-110 H TESTED AT [place] [address] ([facility]) (test code = TISHA Cazares [facility] 1538) 24578 POCT-GLUCOSE [id number] 16:00:00 Test Item Value Reference Range Interpretation Comments POC-GLUCOSE METER 127 mg/dL 70-110 H TESTED AT [place] [address] ([facility]) (test code = TISHA Cazares [facility] 1538) 97185 POCT-GLUCOSE [id number] 11:16:00 Test Item Value Reference Range Interpretation Comments POC-GLUCOSE METER 273 mg/dL 70-110 H TESTED AT [place] [address] ([facility]) (test code = [facility] [employer]age [facility] 1538) [address] COMPREHENSIVE METABOLIC [id number] 06:44:00 Test Item Value Reference Range Interpretation Comments TOTAL PROTEIN 6.4 gm/dL 6.0-8.3 ([facility]) (test code = 770) ALBUMIN ([facility]) 2.9 g/dL 3.5-5.0 L (test code [...] S NOT APPLICABLE FOR DIALYSIS PATIEN TS. [id number] 06:27:00 Test Item Value Reference Range Interpretation Comments PARTIAL THROMBOPLASTIN TIME 38.5 seconds 22.5-36.0 H (BEAKER) (test code = 760) PROTHROMBIN [id number] 06:26:00 Test Item Value Reference Range Interpretation [...] PERCENT (BEAKER) (test code = 2801) POCT-GLUCOSE [id number] 06:22:00 Test Item Value Reference Range Interpretation Comments POC-GLUCOSE METER 131 mg/dL 70-110 H TESTED AT [facility] 67[address] (BEAKER) (test code = TISHA Cazares [place] 1538) [address] URINALYSIS W/ [id number] 20:35:00 Test Item Value Reference Range Interpretation [...] code Urine, Clean Catch = 2795) POCT-GLUCOSE [id number] 20:21:00 Test Item Value Reference Range Interpretation Comments POC-GLUCOSE METER 132 mg/dL 70-110 H TESTED AT [facility] 67[address] (BEAKER) (test code = TISHA Sage [place] 1538) [address] POCT-GLUCOSE [id number] 16:17:00 Test Item Value Reference Range Interpretation Comments POC-GLUCOSE METER 101 mg/dL 70-110 TESTED AT [place] [address] (BEAKER) (test code = TISHA Cazares [place] 1538) [address] POCT-GLUCOSE [id number] 13:35:00 Test Item Value Reference Range Interpretation Comments POC-GLUCOSE METER 143 mg/dL 70-110 H TESTED AT [facility] [address] (BEAKER) (test code = TISHA [place] 1539) [address] BASIC METABOLIC [id number] 06:31:00 Test Item Value Reference Range Interpretation [...] APPLICABLE FOR DIALYSIS PATIEN TS. BASIC METABOLIC [id number] 05:41:00 Test Item Value Reference Range Interpretation [...] 0-0 (BEAKER) (test code = 413) VITAMIN [id number] 06:04:00 Test Item Value Reference Range Interpretation Comments VITAMIN B12 (BEAKER) (test code = 619 pg/mL 213-816 774) [id number] 06:04:00 Test Item Value Reference Range Interpretation Comments FERRITIN (BEAKER) (test code = 361) 335 ng/mL 5-275 H Effective 03/02/2014: Reference Range ChangeNew: Male 5-275 Previous: Male 22-322 Female 5-275 Female 10-291FOLATE, [id number] 06:04:00 Test Item Value Reference Range Interpretation Comments FOLATE (BEAKER) (test code = 362) 4.9 ng/mL >=7.0 L Effective 03/02/2014: Folate Reference Range ChangeNew: >=7.0 Previous: >=5.4BASIC METABOLIC [id number] 05:47:00 Test Item Value Reference Range Interpretation [...] (BEAKER) (test code = 413) BASIC METABOLIC [id number] 05:53:00 Test Item Value Reference Range Interpretation [...] WBC 0-0 (BEAKER) (test code = 413) [id number] 22:53:00 Test Item Value Reference Range Interpretation Comments ACTIVATED CLOTTING TIME 153 sec TEST ED AT [place] [address] ([facility]) (test code = [place] [address]) [address] [id number] 22:35:00 Test Item Value Reference Range Interpretation Comments ACTIVATED CLOTTING TIME 202 sec TEST ED AT [place] [address] ([facility]) (test code = [place] [address]) [address] [id number] 22:04:00 Test Item Value Reference Range Interpretation [...] (BEAKER) (test code = 413) BASIC METABOLIC [id number] 08:43:00 Test Item Value Reference Range Interpretation [...] (BEAKER) (test code = 413) BASIC METABOLIC [id number] 06:44:00 Test Item Value Reference Range Interpretation [...] PATIEN TS. CBC W/PLT COUNT & AUTO [id number] 21:33:00 Test Item Value Reference Range Interpretation [...] 0-1 PERCENT (BEAKER) (test code = 2801) [id number] 07:21:00 Test Item Value Reference Range Interpretation Comments PHOSPHORUS (BEAKER) (test code = 3.6 mg/dL 2.3-4.7 604) [id number] 07:21:00 Test Item Value Reference Range Interpretation Comments MAGNESIUM (BEAKER) (test code = 1.9 mg/dL 1.6-2.6 627) COMPREHENSIVE METABOLIC [id number] 07:21:00 Test Item Value Reference Range Interpretation [...] code = 413) PHENYTOIN LEVEL, TOTAL AND [id number] 01:14:00 Test Item Value Reference Range Interpretation Comments PHENYTOIN (DILANTIN) (BEAKER) 22.9 ug/mL 10.0-20.0 H (test code = 605) PHENYTOIN FREE (BEAKER) (test 3.51 mcg/ml 1.00-2.00 H code = 847) VALPROIC ACID LEVEL, [id number] 20:49:00 Test Item Value Reference Range Interpretation Comments VALPROIC ACID TOTAL (BEAKER) (test 33 ug/mL 50-100 L code = 924) Therapeutic range for some clinical conditions may be >100 ug/mLPOCT-GLUCOSE [id number] 17:10:00 Test Item Value Reference Range Interpretation Comments POC-GLUCOSE METER 108 mg/dL 70-110 TESTED AT [facility] 67[address] ([facility]) (test code = TISHA [place] 1538) [address] PHENYTOIN LEVEL, [id number] 12:29:00 Test Item Value Reference Range Interpretation Comments PHENYTOIN (DILANTIN) (BEAKER) 16.3 ug/mL 10.0-20.0 (test code = 605) CREATINE KINASE (CK), TOTAL AND [id number] 12:26:00 Test Item Value Reference Range Interpretation Comments CREATINE KINASE TOTAL (BEAKER) 47 U/L 29-200 (test code = 380) CREATINE KINASE-MB (BEAKER) (test 1.1 ng/mL 0.0-6.6 code = 750) CREATINE KINASE-MB INDEX (BEAKER) 2.3 % (test code = 395) Effective 03/02/2014: CK-MB Reference Range ChangeNew: 0.0-6.6 Previous: 0.0-4.9CK-MB Reference Range:<6.7 Normal6.7-10.0 Borderline>10.0 AbnormalTROPONIN [id number] 12:26:00 Test Item Value Reference Range Interpretation [...] renalfailure, acidosis, acute neurological disease, and persistent tachyarrhythmia.[id number] 12:17:00 Test Item Value Reference Range Interpretation Comments MAGNESIUM (BEAKER) (test code = 2.0 mg/dL 1.6-2.6 627) COMPREHENSIVE METABOLIC [id number] 12:17:00 Test Item Value Reference Range Interpretation [...] PATIEN TS. CBC W/PLT COUNT & AUTO [id number] 11:55:00 Test Item Value Reference Range Interpretation [...] PERCENT (BEAKER) (test code = 2801) URINE [id number] 11:55:00 Test Item Value Reference Range Interpretation Comments CULTURE (BEAKER) (test code = 1095) No growth BLOOD GAS, [id number] 10:28:00 Test Item Value Reference Range Interpretation [...] (test code = 1819) 32.0 % POCT-GLUCOSE [id number] 09:53:00 Test Item Value Reference Range Interpretation Comments POC-GLUCOSE METER 184 mg/dL 70-110 H TESTED AT [facility] 67[address] (BEAKER) (test code = TISHA [place] 1538) [address] TROPONIN [id number] 22:44:00 Test Item Value Reference Range Interpretation [...] acidosis, acute neurological disease, and persistent tachyarrhythmia.TROPONIN [id number] 15:17:00 Test Item Value Reference Range Interpretation [...] MORPHOLOGY (BEAKER) (test code = Normal 762) [id number] 07:06:00 Test Item Value Reference Range Interpretation Comments PHOSPHORUS (BEAKER) (test code = 2.5 mg/dL 2.3-4.7 604) [id number] 07:06:00 Test Item Value Reference Range Interpretation Comments MAGNESIUM (BEAKER) (test code = 2.0 mg/dL 1.6-2.6 627) COMPREHENSIVE METABOLIC [id number] 07:06:00 Test Item Value Reference Range Interpretation [...] NOT APPLICABLE FOR DIALYSIS PATIEN TS. PROTHROMBIN [id number] 06:40:00 Test Item Value Reference Range Interpretation Comments PROTIME (BEAKER) (test code = 12.5 seconds 11.7-14.7 759) INR (BEAKER) (test code = 370) 1.0 <=5.9 RECOMMENDED COUMADIN/WARFARIN INR THERAPY RANGESSTANDARD DOSE: 2.0 - 3.0 Includes: PROPHYLAXIS forvenous thrombosis, systemic embolization; TREATMENT for venous thrombosis and/or pulmonary embolus.HIGH RISK: Target INR is 2.5-3.5 for patients with mechanical heart valves.URINALYSIS W/ [id number] 06:18:00 Test Item Value Reference Range Interpretation [...] 516) SOURCE(BEAKER) (test code = Urine, Voided 7445) COMPREHENSIVE METABOLIC [id number] 05:47:00 Test Item Value Reference Range Interpretation [...] (BEAKER) (test code = 413) COMPREHENSIVE METABOLIC [id number] 10:08:00 Test Item Value Reference Range Interpretation [...] 0-0 (BEAKER) (test code = 413) POCT-GLUCOSE [id number] 12:08:00 Test Item Value Reference Range Interpretation Comments POC-GLUCOSE METER 111 mg/dL 70-110 H TESTED AT [facility] [address] [facility] (test code = T[place] 1538) [address] POCT-GLUCOSE [id number] 08:40:00 Test Item Value Reference Range Interpretation Comments POC-GLUCOSE METER 184 mg/dL 70-110 H TESTED AT [place] [address] ([facility]) (test code = T[place] 1538) [address] [id number] 05:57:00 Test Item Value Reference Range Interpretation Comments MAGNESIUM (BEAKER) (test code = 2.1 mg/dL 1.6-2.6 627) BASIC METABOLIC [id number] 05:57:00 Test Item Value Reference Range Interpretation [...] 0-0 (BEAKER) (test code = 413) POCT-GLUCOSE [id number] 21:18:00 Test Item Value Reference Range Interpretation Comments POC-GLUCOSE METER 118 mg/dL 70-110 H TESTED AT [facility] 67[address] ([facility]) (test code = TIS[place] 1538) [address] POCT-GLUCOSE [id number] 17:33:00 Test Item Value Reference Range Interpretation Comments POC-GLUCOSE METER 102 mg/dL 70-110 TESTED AT [facility] 6720 (BEAKER) (test code = [facility] Sage [facility] 1538) [address] POCT-GLUCOSE [id number] 12:06:00 Test Item Value Reference Range Interpretation Comments POC-GLUCOSE METER 188 mg/dL 70-110 H TESTED AT [facility] 67 (BEAKER) (test code = [facility] 1538) [address] POCT-GLUCOSE [id number] 08:31:00 Test Item Value Reference Range Interpretation Comments POC-GLUCOSE METER 109 mg/dL 70-110 TESTED AT [place] [address] (BEAKER) (test code = [facility] 1538) [address] [id number] 06:07:00 Test Item Value Reference Range Interpretation Comments MAGNESIUM (BEAKER) (test code = 2.0 mg/dL 1.6-2.6 627) BASIC METABOLIC [id number] 06:07:00 Test Item Value Reference Range Interpretation [...] S NOT APPLICABLE FOR DIALYSIS PATIEN TS. [id number] 05:40:00 Test Item Value Reference Range Interpretation [...] 0-0 (BEAKER) (test code = 413) POCT-GLUCOSE [id number] 21:01:00 Test Item Value Reference Range Interpretation Comments POC-GLUCOSE METER 118 mg/dL 70-110 H TESTED AT [facility] 6720 (BEAKER) (test code = T[place] 1538) [address] POCT-GLUCOSE [id number] 18:51:00 Test Item Value Reference Range Interpretation Comments POC-GLUCOSE METER 117 mg/dL 70-110 H TESTED AT [facility] 67[address] (BEAKER) (test code = TIS[place] 1538) [address] POCT-GLUCOSE [id number] 14:02:00 Test Item Value Reference Range Interpretation Comments POC-GLUCOSE METER 129 mg/dL 70-110 H TESTED AT [facility] 67[address] (BEAKER) (test code = TIS[place] 1538) [address] [id number] 04:19:00 Test Item Value Reference Range Interpretation Comments MAGNESIUM (BEAKER) (test code = 1.8 mg/dL 1.6-2.6 627) BASIC METABOLIC [id number] 04:19:00 Test Item Value Reference Range Interpretation [...] S NOT APPLICABLE FOR DIALYSIS PATIEN TS. [id number] 04:13:00 Test Item Value Reference Range Interpretation [...] heart valves.Prior to initiating heparinPrior to initiating [id number] 04:13:00 Test Item Value Reference Range Interpretation Comments PARTIAL THROMBOPLASTIN TIME 42.4 seconds 22.5-36.0 H (BEAKER) (test code = 760) LACTIC ACID, ARTERIAL, WHOLE [id number] 04:09:00 Test Item Value Reference Range Interpretation [...] 0-0 (BEAKER) (test code = 413) CALCIUM, [id number] 03:54:00 Test Item Value Reference Range Interpretation Comments CALCIUM IONIZED (BEAKER) (test 1.14 mmol/L 1.12-1.27 code = 698) PH, BLOOD (BEAKER) (test code = 7.49 1810) BLOOD GAS, [id number] 03:54:00 Test Item Value Reference Range Interpretation [...] (test code = 1819) 36.0 % POCT-GLUCOSE [id number] 17:32:00 Test Item Value Reference Range Interpretation Comments POC-GLUCOSE METER 121 mg/dL 70-110 H TESTED AT [facility] 67 ([facility]) (test code = T[place] 1538) [address] PLATELET AGGREGATION: FUNCTION [id number] 14:46:00 Test Item Value Reference Range Interpretation Comments WEAK ADP 82 % 60-91 RESULT([facility]) (test code = 2135) PLATELET FUNCTION 60-100% indicates SCREEN INTERP ([facility]) normal platelet (test code = 2173) function [id number] Mari Phelan MD ([facility]) (test code = (electronic signature) 1692) PLATELET COUNT AGG 221 K/CU MM 150-450 (AKER) (test code = 2656) POCT-GLUCOSE [id number] 12:58:00 Test Item Value Reference Range Interpretation Comments POC-GLUCOSE METER 129 mg/dL 70-110 H TESTED AT [facility] 67[address] ([facility]) (test code = T[place] 1538) [address] HEMOGLOBIN [id number] 09:09:00 Test Item Value Reference Range Interpretation Comments HEMOGLOBIN A1C (BEAKER) (test code = 5.1 % 4.3-6.1 368) BLOOD GAS, [id number] 06:57:00 Test Item Value Reference Range Interpretation [...] (test code = 1819) 40.0 % POCT-GLUCOSE [id number] 06:01:00 Test Item Value Reference Range Interpretation Comments POC-GLUCOSE METER 154 mg/dL 70-110 H TESTED AT [facility] 6720 (BEAKER) (test code = T[place] 1538) [address] [id number] 05:02:00 Test Item Value Reference Range Interpretation Comments MAGNESIUM (BEAKER) (test code = 2.0 mg/dL 1.6-2.6 627) BASIC METABOLIC [id number] 05:02:00 Test Item Value Reference Range Interpretation [...] S NOT APPLICABLE FOR DIALYSIS PATIEN TS. [id number] 04:56:00 Test Item Value Reference Range Interpretation [...] code = 2801) LACTIC ACID, ARTERIAL, WHOLE [id number] 04:39:00 Test Item Value Reference Range Interpretation Comments LACTATE BLOOD ARTERIAL (2) 1.2 mmol/L 0.5-2.2 (BEAKER) (test code = 2874) Effective 08/17/2015: Units/Reference Range ChangeNew: 0.5-2.2 mmol/L Previous: 5-20 mg/dLCALCIUM, [id number] 04:11:00 Test Item Value Reference Range Interpretation Comments CALCIUM IONIZED (BEAKER) (test 1.17 mmol/L 1.12-1.27 code = 698) PH, BLOOD (BEAKER) (test code = 7.44 1810) BLOOD GAS, [id number] 04:11:00 Test Item Value Reference Range Interpretation [...] code = 1819) 40.0 % OXYGEN SATURATION, [id number] 04:09:00 Test Item Value Reference Range Interpretation Comments O2 SATURATION (MEASURED) (BEAKER) 80.7 % (test code = 1455) POCT-GLUCOSE [id number] 02:46:00 Test Item Value Reference Range Interpretation Comments POC-GLUCOSE METER 150 mg/dL 70-110 H TESTED AT [facility] ([place] [facility]) (test code = TISHA Cazares [place] 1538) [address] POCT-GLUCOSE [id number] 18:29:00 Test Item Value Reference Range Interpretation Comments POC-GLUCOSE METER 111 mg/dL 70-110 H TESTED AT [place] [address] [facility] (test code = TISHA Cazares [place] 1538) [address] [id number] 16:27:00 Test Item Value Reference Range Interpretation Comments POTASSIUM (BEAKER) (test code = 4.2 meq/L 3.5-5.1 379) [id number] 16:27:00 Test Item Value Reference Range Interpretation Comments MAGNESIUM (BEAKER) (test code = 2.1 mg/dL 1.6-2.6 627) [id number] 16:27:00 Test Item Value Reference Range Interpretation Comments SODIUM (BEAKER) (test code = 381) 141 meq/L 136-145 BASIC METABOLIC [id number] 16:27:00 Test Item Value Reference Range Interpretation [...] DIALYSIS PATIEN TS. LACTIC ACID, ARTERIAL, WHOLE [id number] 16:23:00 Test Item Value Reference Range Interpretation Comments LACTATE BLOOD 1.8 mmol/L 0.5-2.2 Specimen sligh tly ARTERIAL (2) (BEAKER) hemoly zed (test code = 2874) Effective 08/17/2015: Units/Reference Range ChangeNew: 0.5-2.2 mmol/L Previous: 5-20 mg/dLPT/[id number] 16:18:00 Test Item Value Reference Range Interpretation [...] for patients with mechanical heart valves.HEMOGLOBIN AND [id number] 16:10:00 Test Item Value Reference Range Interpretation [...] (BEAKER) (test code = 413) BLOOD GAS, [id number] 16:03:00 Test Item Value Reference Range Interpretation [...] (test code = 1819) 60.0 % CALCIUM, [id number] 16:03:00 Test Item Value Reference Range Interpretation Comments CALCIUM IONIZED (BEAKER) (test 1.18 mmol/L 1.12-1.27 code = 698) PH, BLOOD (BEAKER) (test code = 7.36 1810) OXYGEN SATURATION, [id number] 16:02:00 Test Item Value Reference Range Interpretation Comments O2 SATURATION (MEASURED) ([facility]) 82.9 % (test code = 1455) [id number] 15:26:00 Test Item Value Reference Range Interpretation Comments ACTIVATED CLOTTING TIME 120 sec TEST ED AT [place] [address] ([facility]) (test code = TISHA Cazares [place] [address]) [address] [id number] 15:26:00 Test Item Value Reference Range Interpretation Comments ACTIVATED CLOTTING TIME 802 sec TEST ED AT [place] [address] ([facility]) (test code = TISHA Cazares [facility] 441) [address] [id number] 15:26:00 Test Item Value Reference Range Interpretation Comments ACTIVATED CLOTTING TIME 884 sec TEST ED AT [place] [address] ([facility]) (test code = TISHA Cazares [place] [address]) [address] [id number] 15:26:00 Test Item Value Reference Range Interpretation Comments ACTIVATED CLOTTING TIME 621 sec TEST ED AT [place] [address] ([facility]) (test code = TISHA Cazares [facility] 441) [address] THROMBOELASTOGRAPH (TEG)2016-11-28 14:00:00 Test Item Value Reference Range Interpretation Comments TEG ACTIVATED CLOTTING TIME 8.7 minutes 4.0-7.0 H ([facility]) (test code = 1407) TEG FIBRINOGEN ACTIVITY (AKER) 73.1 degrees 61.0-73.0 H (test code = 1408) TEG PLT. AGGREGATION (AKER) 70.6 MM 55.0-65.0 H (test code = 1409) TGH ACTIVATED CLOTTING TIME 8.7 minutes 4.0-7.0 H ([facility]) (test code = 1411) TGH FIBRINOGEN ACTIVITY (BEAKER) 73.0 degrees 61.0-73.0 (test code = 1412) TGH PLT. AGGREGATION (AKER) 69.3 MM 55.0-65.0 H (test code = 1413) [id number] 13:28:00 Test Item Value Reference Range Interpretation Comments FIBRINOGEN LEVEL ([facility]) (test 458 mg/dl 225-434 H code = 658) [id number] 13:28:00 Test Item Value Reference Range Interpretation Comments PARTIAL THROMBOPLASTIN TIME 39.7 seconds 22.5-36.0 H (AKER) (test code = 760) PROTHROMBIN [id number] 13:27:00 Test Item Value Reference Range Interpretation Comments PROTIME (BEAKER) (test code = 17.4 seconds 11.7-14.7 H 759) INR (BEAKER) (test code = 370) 1.4 <=5.9 RECOMMENDED COUMADIN/WARFARIN INR THERAPY RANGESSTANDARD DOSE: 2.0 - 3.0 Includes: PROPHYLAXIS forvenous thrombosis, systemic embolization; TREATMENT for venous thrombosis and/or pulmonary embolus.HIGH RISK: Target INR is 2.5-3.5 for patients with mechanical heart valves.PLATELET [id number] 13:21:00 Test Item Value Reference Range Interpretation Comments PLATELET COUNT 151 K/CU MM 150-450 Discordant re sult (BEAKER) (test code compared to previous = 756) result; clinica l correlation req uired. CALCIUM, [id number] 13:06:00 Test Item Value Reference Range Interpretation Comments CALCIUM IONIZED (BEAKER) (test 1.07 mmol/L 1.12-1.27 L code = 698) PH, BLOOD (BEAKER) (test code = 7.31 1810) SODIUM NA-STAT [id number] 13:05:00 Test Item Value Reference Range Interpretation Comments SODIUM (BEAKER) (test code = 381) 135 meq/L 135-148 POTASSIUM-STAT [id number] 13:05:00 Test Item Value Reference Range Interpretation Comments POTASSIUM (BEAKER) (test code = 4.4 meq/L 3.6-5.5 379) BLOOD GAS, [id number] 13:05:00 Test Item Value Reference Range Interpretation [...] (test code = 1819) 67.0 % GLUCOSE-STAT [id number] 13:05:00 Test Item Value Reference Range Interpretation Comments GLUCOSE RANDOM (BEAKER) (test code 145 mg/dL 70-110 H = 652) HGB/HCT (H&H) - STAT [id number] 13:05:00 Test Item Value Reference Range Interpretation Comments HEMOGLOBIN (BEAKER) (test code = 10.2 g/dL 13.0-16.8 L 410) HEMATOCRIT (BEAKER) (test code = 30.0 % 40.0-50.0 L 411) BLOOD GAS, [id number] 12:26:00 Test Item Value Reference Range Interpretation [...] (test code = 1819) 65.0 % GLUCOSE-STAT [id number] 12:26:00 Test Item Value Reference Range Interpretation Comments GLUCOSE RANDOM (BEAKER) (test code 132 mg/dL 70-110 H = 652) HGB/HCT (H&H) - STAT [id number] 12:26:00 Test Item Value Reference Range Interpretation Comments HEMOGLOBIN (BEAKER) (test code = 10.6 g/dL 13.0-16.8 L 410) HEMATOCRIT (BEAKER) (test code = 31.0 % 40.0-50.0 L 411) SODIUM NA-STAT [id number] 12:25:00 Test Item Value Reference Range Interpretation Comments SODIUM (BEAKER) (test code = 381) 136 meq/L 135-148 POTASSIUM-STAT [id number] 12:25:00 Test Item Value Reference Range Interpretation Comments POTASSIUM (BEAKER) (test code = 4.4 meq/L 3.6-5.5 379) BLOOD GAS, [id number] 12:03:00 Test Item Value Reference Range Interpretation [...] (test code = 1819) 65.0 % POTASSIUM-STAT [id number] 12:00:00 Test Item Value Reference Range Interpretation Comments POTASSIUM (BEAKER) (test code = 4.7 meq/L 3.6-5.5 379) BLOOD GAS, [id number] 12:00:00 Test Item Value Reference Range Interpretation [...] (test code = 1819) 65.0 % GLUCOSE-STAT [id number] 12:00:00 Test Item Value Reference Range Interpretation Comments GLUCOSE RANDOM (BEAKER) (test code 140 mg/dL 70-110 H = 652) HGB/HCT (H&H) - STAT [id number] 12:00:00 Test Item Value Reference Range Interpretation Comments HEMOGLOBIN (BEAKER) (test code = 10.4 g/dL 13.0-16.8 L 410) HEMATOCRIT (BEAKER) (test code = 31.0 % 40.0-50.0 L 411) SODIUM NA-STAT [id number] 12:00:00 Test Item Value Reference Range Interpretation Comments SODIUM (BEAKER) (test code = 381) 131 meq/L 135-148 L PLATELET AGGREGATION: FUNCTION [id number] 11:08:00 Test Item Value Reference Range Interpretation Comments WEAK ADP 76 % 60-91 RESULT(BEAKER) (test code = 2135) PLATELET FUNCTION 60-100% indicates SCREEN INTERP (BEAKER) normal platelet (test code = 2173) function [id number] Mari Phelan MD (BEAKER) (test code = (electronic signature) 8002) PLATELET COUNT AGG 222 K/CU MM 150-450 (BEAKER) (test code = 2656) for patients on clopidogrel in past two weeksHEMOGLOBIN [id number] 08:57:00 Test Item Value Reference Range Interpretation Comments HEMOGLOBIN A1C (BEAKER) (test code = 5.0 % 4.3-6.1 368) CBC W/PLT COUNT & AUTO [id number] 05:54:00 Test Item Value Reference Range Interpretation [...] 0-1 PERCENT (BEAKER) (test code = 2801) [id number] 05:37:00 Test Item Value Reference Range Interpretation Comments PARTIAL THROMBOPLASTIN TIME 56.5 seconds 22.5-36.0 H (BEAKER) (test code = 760) BASIC METABOLIC [id number] 05:33:00 Test Item Value Reference Range Interpretation [...] NOT APPLICABLE FOR DIALYSIS PATIEN TS. PROTHROMBIN TIME/[id number] 05:33:00 Test Item Value Reference Range Interpretation Comments PROTIME (BEAKER) (test code = 13.3 seconds 11.7-14.7 759) INR (BEAKER) (test code = 370) 1.0 <=5.9 RECOMMENDED COUMADIN/WARFARIN INR THERAPY RANGESSTANDARD DOSE: 2.0 - 3.0 Includes: PROPHYLAXIS forvenous thrombosis, systemic embolization; TREATMENT for venous thrombosis and/or pulmonary embolus.HIGH RISK: Target INR is 2.5-3.5 for patients with mechanical heart valves.[id number] 19:22:00 Test Item Value Reference Range Interpretation Comments PARTIAL THROMBOPLASTIN TIME 37.4 seconds 22.5-36.0 H (BEAKER) (test code = 760) PROTHROMBIN TIME/[id number] 19:21:00 Test Item Value Reference Range Interpretation Comments PROTIME (BEAKER) (test code = 12.8 seconds 11.7-14.7 759) INR (BEAKER) (test code = 370) 1.0 <=5.9 RECOMMENDED COUMADIN/WARFARIN INR THERAPY RANGESSTANDARD DOSE: 2.0 - 3.0 Includes: PROPHYLAXIS forvenous thrombosis, systemic embolization; TREATMENT for venous thrombosis and/or pulmonary embolus.HIGH RISK: Target INR is 2.5-3.5 for patients with mechanical heart valves.[id number] 11:49:00 Test Item Value Reference Range Interpretation Comments PARTIAL THROMBOPLASTIN TIME 34.7 seconds 22.5-36.0 (BEAKER) (test code = 760) Prior to initiating heparinPLATELET [id number] 11:31:00 Test Item Value Reference Range Interpretation Comments PLATELET COUNT (BEAKER) (test 199 K/CU MM 150-450 code = 756) PLATELET AGGREGATION: FUNCTION [id number] 11:12:00 Test Item Value Reference Range Interpretation Comments WEAK ADP 90 % 60-91 RESULT(BEAKER) (test code = 2135) PLATELET FUNCTION 60-100% indicates SCREEN INTERP (BEAKER) normal platelet (test code = 2173) function [id number] Mari Phelan MD (BEAKER) (test code = (electronic signature) 6313) PLATELET COUNT AGG 200 K/CU MM 150-450 (BEAKER) (test code = 2656) HEMOGLOBIN [id number] 08:38:00 Test Item Value Reference Range Interpretation Comments HEMOGLOBIN A1C (BEAKER) (test code = 5.5 % 4.3-6.1 368) TROPONIN [id number] 08:35:00 Test Item Value Reference Range Interpretation [...] Previous: 0.0-4.9CK-MB Reference Range:<6.7 Normal6.7-10.0 Borderline>10.0 AbnormalPOCT-GLUCOSE [id number] 08:23:00 Test Item Value Reference Range Interpretation Comments POC-GLUCOSE METER 104 mg/dL 70-110 TESTED AT [facility] 6720 (BEAKER) (test code = T[place] 1538) [address] PROTHROMBIN [id number] 04:32:00 Test Item Value Reference Range Interpretation Comments PROTIME (BEAKER) (test code = 13.5 seconds 11.7-14.7 759) INR (BEAKER) (test code = 370) 1.0 <=5.9 RECOMMENDED COUMADIN/WARFARIN INR THERAPY RANGESSTANDARD DOSE: 2.0 - 3.0 Includes: PROPHYLAXIS forvenous thrombosis, systemic embolization; TREATMENT for venous thrombosis and/or pulmonary embolus.HIGH RISK: Target INR is 2.5-3.5 for patients with mechanical heart valves.[id number] 02:13:00 Test Item Value Reference Range Interpretation Comments PHOSPHORUS (BEAKER) (test code = 3.9 mg/dL 2.3-4.7 604) [id number] 02:13:00 Test Item Value Reference Range Interpretation Comments MAGNESIUM (BEAKER) (test code = 2.1 mg/dL 1.6-2.6 627) BASIC METABOLIC [id number] 02:13:00 Test Item Value Reference Range Interpretation [...] PATIEN TS. CBC W/PLT COUNT & AUTO [id number] 01:44:00 Test Item Value Reference Range Interpretation [...] 0-1 PERCENT (BEAKER) (test code = 2801) PT/[id number] 01:31:00 Test Item Value Reference Range Interpretation [...] 2.5-3.5 for patients with mechanical heart valves.TROPONIN [id number] 00:46:00 Test Item Value Reference Range Interpretation [...] 0.0-6.6 Previous: 0.0-4.9CK-MB Reference Range:<6.7 Normal6.7-10.0 Borderline>10.0 WbkgmsthBHWAXPXUZN1379-99-04 06:58:00 Test Item Value Reference Range Interpretation Comments PHOSPHORUS (BEAKER) (test code = 3.7 mg/dL 2.3-4.7 604) [id number] 06:58:00 Test Item Value Reference Range Interpretation Comments MAGNESIUM (BEAKER) (test code = 1.9 mg/dL 1.6-2.6 627) BASIC METABOLIC [id number] 06:58:00 Test Item Value Reference Range Interpretation [...] S NOT APPLICABLE FOR DIALYSIS PATIEN TS. [id number] 06:36:00 Test Item Value Reference Range Interpretation Comments PHOSPHORUS (BEAKER) (test code = 4.1 mg/dL 2.3-4.7 604) [id number] 06:36:00 Test Item Value Reference Range Interpretation Comments MAGNESIUM (BEAKER) (test code = 2.0 mg/dL 1.6-2.6 627) BASIC METABOLIC [id number] 06:36:00 Test Item Value Reference Range Interpretation [...] S NOT APPLICABLE FOR DIALYSIS PATIEN TS. [id number] 15:50:00 Test Item Value Reference Range Interpretation Comments RPR SCREEN (BEAKER) (test code = Nonreactive Nonreactive 420) HEMOGLOBIN [id number] 10:29:00 Test Item Value Reference Range Interpretation Comments HEMOGLOBIN A1C (BEAKER) (test code = 5.4 % 4.3-6.1 368) VITAMIN B12 AND [id number] 09:21:00 Test Item Value Reference Range Interpretation Comments VITAMIN B12 (BEAKER) (test code = 335 pg/mL 213-816 774) FOLATE (BEAKER) (test code = 362) 36.6 ng/mL >=7.0 Effective 03/02/2014: Folate Reference Range ChangeNew: >=7.0 Previous: >=5.4CBC W/PLT COUNT & AUTO [id number] 08:15:00 Test Item Value Reference Range Interpretation [...] (test code = 417) 0.00TSH/FREE T4 IF [id number] 08:00:00 Test Item Value Reference Range Interpretation Comments THYROID STIMULATING HORMONE 1.39 uIU/mL 0.35-4.94 (BEAKER) (test code = 772) BASIC METABOLIC [id number] 07:26:00 Test Item Value Reference Range Interpretation [...] TO LUIS MIGUEL chan ESTIMATED GFR. LIPID [id number] 07:26:00 Test Item Value Reference Range Interpretation [...] 100-129 Borderline 130-159 High 160-189 Very High >=685QFXGWKCPOJ5327-98-47 07:25:00 Test Item Value Reference Range Interpretation Comments PHOSPHORUS (BEAKER) (test code = 3.8 mg/dL 2.3-4.7 604) [id number] 07:25:00 Test Item Value Reference Range Interpretation Comments MAGNESIUM (BEAKER) (test code = 2.0 mg/dL 1.6-2.6 627) URINALYSIS W/ [id number] 19:16:00 Test Item Value Reference Range Interpretation [...] 520) SOURCE(BEAKER) (test code = Urine, Voided 9643) BLOOD [id number] 11:00:00 Test Item Value Reference Range Interpretation Comments CULTURE (BEAKER) (test No growth in 5 days code = 1095) BLOOD [id number] 11:00:00 Test Item Value Reference Range Interpretation Comments CULTURE (BEAKER) (test No growth in 5 days code = 1095) BASIC METABOLIC [id number] 05:33:00 Test Item Value Reference Range Interpretation [...] ESTIMATED GFR. CBC W/PLT COUNT & AUTO FCWLWIFKMLSX0363-07-68 05:04:00 Test Item Value Reference Range Interpretation [...] 0.00-0.20 (test code = 417) 0.00VANCOMYCIN LEVEL, [id number] 21:36:00 Test Item Value Reference Range Interpretation Comments VANCOMYCIN TROUGH (BEAKER) (test 9.5 ug/mL 10.0-20.0 L code = 522) Please draw prior to 4th vancomycin doseVITAMIN B12 AND [id number] 04:33:00 Test Item Value Reference Range Interpretation Comments VITAMIN B12 (BEAKER) (test code = 599 pg/mL 213-816 774) FOLATE (BEAKER) (test code = 362) 7.7 ng/mL >=7.0 Effective 03/02/2014: Folate Reference Range ChangeNew: >=7.0 Previous: >=5.4HEPATIC FUNCTION [id number] 03:58:00 Test Item Value Reference Range Interpretation [...] = 12 U/L 6-55 347) BASIC METABOLIC [id number] 03:58:00 Test Item Value Reference Range Interpretation [...] ESTIMATED GFR. CBC W/PLT COUNT & AUTO [id number] 03:45:00 Test Item Value Reference Range Interpretation [...] K/ L 0.00-0.20 (test code = 417) 0.65LMIP1799-29-71 03:18:00 Test Item Value Reference Range Interpretation Comments PARTIAL THROMBOPLASTIN TIME 42.6 seconds 22.5-36.0 H (BEAKER) (test code = 760) PROTHROMBIN TIME/[id number] 03:17:00 Test Item Value Reference Range Interpretation Comments PROTIME (BEAKER) (test code = 13.0 seconds 11.7-14.7 759) INR (BEAKER) (test code = 370) 1.0 <=5.9 RECOMMENDED COUMADIN/WARFARIN INR THERAPY RANGESSTANDARD DOSE: 2.0 - 3.0 Includes: PROPHYLAXIS forvenous thrombosis, systemic embolization; TREATMENT for venous thrombosis and/or pulmonary embolus.HIGH RISK: Target INR is 2.5-3.5 for patients with mechanical heart valves.BASIC METABOLIC [id number] 02:48:00 Test Item Value Reference Range Interpretation [...] ESTIMATED GFR. CBC W/PLT COUNT & AUTO [id number] 02:47:00 Test Item Value Reference Range Interpretation [...] K/ L 0.00-0.20 (test code = 417) 0.13GSNPNEOLP1846-26-63 09:18:0014.0[facility] JndlvudEOORZKYRX8564-28-39 09:18:00 110[facility] MokxzbqEFLVJRLTN1258-24-07 09:18:0026[facility]annCHEMISTRY 2011-09-29 09:18:009.1[facility] IrqsoocDXVBMJTXY3526-96-89 09:18:77037Puzsiikr OwctlrnDETULGWBI1047-28-44 09:18:004.0[facility] LdxxjmsAACHVAOFK0802-03-15 09:18:0011[facility] OhlhblsSOOVLHUNH4787-78-87 09:18:22340Fhuqdigh [place] UFTUGJXBK8678-90-27 09:18:000.7[facility] PjuzfjvGUDGCMBBCC5427-92-36 09:18:0013.6 [facility] LqempzwWMWACUJENL2208-22-73 09:18:0098.9[facility]annHEMATOLOGY 2011-09-29 09:18:0038.8[facility] RwwelnuGUPKTMSTYQ3146-33-62 09:18:009.7[facility] ZyglxnqMNRFJXSFXZ3355-56-44 09:18:09907Bglidrlj EwitxwsNHVUPIDVRI6570-99-97 09:18:0034.5[facility] MnzeiccEPLWWAOWNQ8720-12-31 09:18:00 Test Item Value Reference Range Interpretation Comments MCH (test code = MCH) 34.2 pg 27.0-31.0 H [facility] DnwbhdmNSSSCOETGC5749-46-73 09:18:0013.4[facility]annHEMATOLOGY 2011-09-29 09:18:005.8[facility] OxjlsmpKIHDNWDBIP2950-07-57 09:18:003.92[facility] YrsqpxbJPJRUQDZSC5514-85-31 09:18:000.8[facility] VildrvmDIEBHERXHG1141-00-65 09:18:002.4[facility] TepouzuNFZSECFVES0985-21-82 09:18:000.0[facility] [place] WYGMZWEZCQ3319-81-90 09:18:000.2[facility] UejhayjHXLTTKBTQB8105-06-51 09:18:00 41.3[facility] PqzczkcACJPIPEBYJ3396-76-13 09:18:0041.0[facility]annHEMATOLOGY 2011-09-29 09:18:003.9[facility] YwtquhzRCKJFIWHIY8947-56-80 09:18:002.4[facility] GxvshqcVOESZRRVVK8930-50-66 09:18:000.3[facility] NwqqlerCISIJLSPMP9844-35-46 09:18:0013.5[facility] HermannBEDSIDE GLUCOSE GFTROMG4036-43-19 21:40:49049 [facility] WlsddxvDHRTVCREX5459-51-59 10:14:0030[facility]annCHEMISTRY 2011-09-25 10:14:009.0[facility] KwciyudEPAEUGSZZ7770-01-77 10:14:0086[facility] EcygzpzWHXXDZIZA6781-21-10 10:14:004.4[facility] MrxzamiAPNDUSYEJ9432-89-57 10:14:15612Lvqkpbnf QtjqdtxJGSNXCKEV9187-23-57 10:14:0013[facility] Miguel CTLXKQZNJ6891-01-09 10:14:000.7[facility] FdgxfesLQYAJBDDQ6301-68-79 10:14:00809 [facility] OcgoozzGKPTAAHQN0119-54-76 10:14:0011.4[facility] HermannHEMATOLOGY 2011-09-25 10:14:000.5[facility] XipvposXBXQBFSAUI9259-91-93 10:14:003.1[facility] FbidhspXPYRQJWQGL1485-76-53 10:14:003.1[facility] EeyxzpcBZNCNAYGHE5433-30-58 10:14:002.3[facility] YewcfglIAKEFFFIYQ3645-47-25 10:14:000.9[facility] Miguel IZZLLDTMUX7713-69-92 10:14:0048.3[facility] TwmwelyCUJCOCRJPF5165-28-37 10:14:00 34.9[facility] AfeopfbUUBNALYNCB3638-67-11 10:14:001+ *ABN*(09/25/2011 05:14:00) [facility] JgvnuinIJKARFGMQJ5811-70-27 10:14:000.2[facility] HermannHEMATOLOGY 2011-09-25 10:14:0013.2[facility] TjhptshHFATDVFBRI9468-02-03 10:14:000.0[facility] XsnyvjmFRVSWJYYHK9977-61-07 10:14:009.1[facility] AehxgdvATEHIELOXC0189-53-57 10:14:30639Rucfledi KjmkukkDGMTJDPIYT1037-31-44 10:14:0014.3[facility] [place] ALNVQVDITN1469-05-87 10:14:0034.1[facility] BnbtowtTEGNDZWIRP3946-83-88 10:14:00 42.1[facility] AguvmnaIKOLERLVJI2486-79-40 10:14:0014.4[facility]annHEMATOLOGY 2011-09-25 10:14:006.4[facility] AxgoqieFEHXZQXWOJ7077-87-74 10:14:0099.3[facility] KxaksqdIYWTEKHHQH9220-11-74 10:14:004.24[facility] VccxibgBZJYMGTQZZ3224-27-88 10:14:00 Test Item Value Reference Range Interpretation Comments MCH (test code = MCH) 33.9 pg 27.0-31.0 H [facility] WyhdlzwJVNUTTPTL8014-83-29 09:04:0025[facility]annCHEMISTRY 2011-09-18 09:04:009.0[facility] TyyjldjYAMQARIRJ8468-36-02 09:04:0013.1[facility] PxfwswnZVWDKABABT9777-68-18 09:04:001+ *ABN*(09/18/2011 04:04:00)[facility] ScxtnnxZVXFDSBEMS0794-18-04 09:04:000.9[facility] RshtwxeKAMVHPPZAY1111-73-99 09:04:002.1[facility] IseqsfeCYFFXLGLME1722-08-12 09:04:0054.6[facility] Miguel LQRXHTRTRU3675-12-40 09:04:000.2[facility] WulunmsSDAPZNSMPM0694-21-43 09:04:002.3 [facility] CrvevypTVCPHRZIQR7479-11-33 09:04:0012.9[facility]annHEMATOLOGY 2011-09-18 09:04:0029.9[facility] FgzsiopAATDHPUIHW3976-43-77 09:04:000.3[facility] GrfpggdMENRBHHFAQ6051-41-87 09:04:000.0[facility] VmuduftYWJSJTNTOY1901-27-59 09:04:003.8[facility] FeihicpMGYWRZTJGQ6077-17-83 09:04:0043.5[facility] [place] SLQAARGOTS4624-40-67 09:04:0099.4[facility] BseymlgWSIDCACGJD1847-32-17 09:04:00 14.8[facility] KdvsuceSIDHPBSSRY0893-93-39 09:04:004.37[facility]annHEMATOLOGY 2011-09-18 09:04:006.9[facility] PymuvrzZFTHAMKJGY7979-41-73 09:04:64169Lysoehdf JdtpkzlBCSRVHSFVL3088-52-72 09:04:0034.2[facility] JhsckwoTQAAOVECNQ5120-68-56 09:04:009.1[facility] JvhiwoeFZHKVCGKPH9707-13-21 09:04:0013.9[facility] Miguel TECOINVNNN3346-92-06 09:04:00 Test Item Value Reference Range Interpretation Comments MCH (test code = MCH) 33.9 pg 27.0-31.0 H [facility] BysnmfuHXTTPVYSE1020-90-09 09:04:0095[facility] HermannCHEMISTRY 2011-09-18 09:04:009[facility] ObrnbzfQSWPQYRVT5177-44-20 09:04:000.6[facility] SqrwzxiWLUXVYCCG6770-81-45 09:04:54553Igknuriq SseerlrRJBAGRLIC3630-10-91 09:04:004.1[facility] PapeeasDASKLTGKO0135-00-72 09:04:24103Csufgyjc [place] VPNGNFZIJK6940-56-83 13:25:00<1[facility] BznnyydZENQAAQXZU4078-62-66 13:25:001 [facility] WrstlanHPGSDWEUGE7277-57-12 13:25:00Few /LPF *NA*(09/16/2011 08:25:00) [facility] XutskzrRPTOLGZFPV8562-49-18 13:25:00Negative mg/dL *NA*(09/16/2011 08:25:00)[facility] HdhtooxKNQADIPQIJ9266-39-47 13:25:00Negative *NA*(09/16/2011 08:25:00)[facility] UdtrwnoXQZUDJHKCV8708-67-88 13:25:00Negative (09/16/2011 08:25:00)[facility] TmbyqlrLKJBWQHOAG7184-98-31 13:25:00Negative (09/16/2011 08:25:00)[facility] TwcywuyUPWVLDNBJD3356-27-92 13:25:00Negative (09/16/2011 08:25:00)[facility] LeoesdxKPWCAGUKAT8779-30-29 13:25:00Occasional /LPF *NA*(09/16/2011 08:25:00)[facility] EazjmnxWVPMXIGOLE7538-75-19 13:25:00Negative mg/dL *NA*(09/16/2011 08:25:00)[facility] KrlmyanFCGGUBZNMA1652-38-66 13:25:00 Negative mg/dL (09/16/2011 08:25:00)[facility] PaeftwhRVULJQJABO3487-96-78 13:25:00Yellow *NA*(09/16/2011 08:25:00)[facility] ZgvfvzkNRXNUXZQTU2273-86-18 13:25:005.5[facility] KjkilrqJMFUUOCGPR4900-75-26 13:25:001.017[facility] [place] AJLUKOVEMU4689-82-98 13:25:00Clear (09/16/2011 08:25:00)[facility] [place] JMKVZJWERA1405-59-56 08:42:00Few /LPF *NA*(09/15/2011 03:42:00)[facility] Miguel KFDXHZGVCM3275-89-36 08:42:001[facility] MsubblfWGIRRMJABK3945-44-99 08:42:00 Negative (09/15/2011 03:42:00)[facility] FsgrgbeKQQDJMMQSH8138-93-22 08:42:00 Negative (09/15/2011 03:42:00)[facility] NuloxmoZLMXZQRXWO6795-51-88 08:42:00 Negative (09/15/2011 03:42:00)[facility] HylpdcwRWHCYYLOUN0016-71-07 08:42:005.5 [facility] KktmtksSGFXHNQZJM5572-12-85 08:42:00Negative mg/dL (09/15/2011 03:42:00)[facility] EijfmrnDFUJQNDOBJ1175-79-70 08:42:00Negative mg/dL *NA*(09/15/2011 03:42:00)[facility] CcrtrlcOLKXFRLCGC6825-87-86 08:42:00Negative mg/dL *NA*(09/15/2011 03:42:00)[facility] XsfnouxMKYXIHPAUV2535-40-96 08:42:00 Negative *NA*(09/15/2011 03:42:00)[facility] XpcyvyaGHEFRHVGPE4668-49-44 08:42:00 Yellow *NA*(09/15/2011 03:42:00)[facility] MnqvwxkSVGLAAHNSI2532-97-78 08:42:00 Slight *ABN*(09/15/2011 03:42:00)[facility] AtkxppfMMPCKWGORD6693-72-28 08:42:00 1.012[facility] FepynseIJWBFNVNX4380-65-29 08:40:003.390[facility] HermannCHEMISTRY 2011-09-15 08:40:008.5[facility] DvpzlzwYDFPDMVUZ1484-14-78 08:40:0033[facility] KywxudwMMXYPCOLQ2311-23-02 08:40:003.390[facility] [id number] 08:40:006.4[facility] MzismwxUFQVHXTHF4320-12-07 08:40:0014[facility] [place] [id number] 08:40:000.4[facility] PjiqmibDYLDSDIRC6215-90-15 08:40:0024 [facility] ZwypwvlCPUMQGODN9912-81-11 08:40:0081[facility] HermannCHEMISTRY 2011-09-15 08:40:003.3[facility] McnripuCSGCAYPFZ6581-32-72 08:40:001.1[facility] XvspgqmLFOVJWTGU5389-91-87 08:40:0014[facility] ZoguzfuDMIILGPZA3454-43-40 08:40:003.1[facility] CfazjimBUENSTLLI1681-86-21 08:40:002.8[facility] Miguel [id number] 08:40:00 Test Item Value Reference Range Interpretation Comments PTT (test code = PTT) 32.4 s 22.9-35.8 [facility]TI6002-42-64 08:40:00 Test Item Value Reference Range Interpretation Comments PT (test code = PT) 13.0 s 12.0-14.7 N [facility]qbggqaELDDHDOIEZ0570-95-00 08:40:000.98[facility]UT [facility]
[2020-09-22] MEDS ORDERED: IPRATROPIUM BROM 0.5MG/2.5ML ONE (06:58)
[2020-09-22] MEDS ORDERED: METHYLPREDNISOLONE 125 MG INJ ONE (06:58)
[2020-09-22] MEDS ORDERED: LEVALBUTEROL 1.25 MG/3 ML NEB ONE ×2 (06:58→07:54)
--- NOTE | 2020-09-22 07:17 | EDPHYS ---
Physician Documentation [facility] Name: Bryan Graf Age: 69 yrs Sex: Male : 1950 Arrival Date: 09/22/2020 Time: 06:05 Bed 16 Private MD: ED Physician Luis Eduardo Stover HPI: 09/22 06:42 This 69 yrs old Male presents to ER via EMS with complaints of sob, anxious nicolette and copd. 06:42 The patient has shortness of breath at rest, with light activity. Onset: The nicolette symptoms/episode began/occurred 3 day(s) ago. Duration: The symptoms are continuous, and are steadily getting worse. The patient's shortness of breath has no apparent modifying factors. The patient or guardian reports airway noise, cough, difficulty breathing, flu symptoms. Modifying factors: The symptoms are alleviated by nothing. the symptoms are aggravated by nothing. Associated signs and symptoms: Pertinent positives: non-productive cough, dizziness. Severity of symptoms: At their worst the symptoms were mild moderate in the emergency department the symptoms are unchanged. Associated signs and symptoms: Pertinent positives: rhinorrhea, sore throat. Historical: - Allergies: 06:10 Aspirin; jm8 06:10 PENICILLINS; jm8 - Home Meds: 06:10 acetaminophen 325 mg Oral tab as needed [Active]; Depakote 500 mg Oral TbEC 1 tab 2 jm8 times per day [Active]; Keppra 1,000 mg Oral tab 1 tab every 12 hours [Active]; oxycodone 30 mg Oral tab three times a day [Active]; Albuterol Nebulizer [Active]; - PMHx: 06:10 Chronic pain; CVA; Hypertension; Pneumonia; Seizures; swelling and pain to L lower leg; jm8 COPD; - PSHx: 06:10 Heart stents; jm8 - Immunization history:: Adult Immunizations up to date, Client reports having NOT received the Covid vaccine. . - Social history:: Smoking status: Patient reports the use of cigarette tobacco products. - Family history:: not pertinent. ROS: 06:42 Constitutional: Negative for fever, chills, and weight loss, Eyes: Negative for injury, nicolette pain, redness, and discharge, ENT: Negative for injury, pain, and discharge, Neck: Negative for injury, pain, and swelling, Cardiovascular: Negative for chest pain, palpitations, and edema, Abdomen/GI: Negative for abdominal pain, nausea, vomiting, diarrhea, and constipation, Back: Negative for injury and pain, : Negative for injury, bleeding, discharge, and swelling, MS/Extremity: Negative for injury and deformity, Skin: Negative for injury, rash, and discoloration, Neuro: Negative for headache, weakness, numbness, tingling, and seizure, Psych: Negative for depression, anxiety, suicide ideation, homicidal ideation, and hallucinations, Allergy/Immunology: Negative for hives, rash, and allergies, Endocrine: Negative for neck swelling, polydipsia, polyuria, polyphagia, and marked weight changes, Hematologic/Lymphatic: Negative for swollen nodes, abnormal bleeding, and unusual bruising. 06:42 Respiratory: Positive for cough, "sounds productive". Exam: 06:42 Constitutional: This is a well developed, well nourished patient who is awake, alert, nicolette and in no acute distress. Head/Face: Normocephalic, atraumatic. Eyes: Pupils equal round and reactive to light, extra-ocular motions intact. Lids and lashes normal. Conjunctiva and sclera are non-icteric and not injected. Cornea within normal limits. Periorbital areas with no swelling, redness, or edema. ENT: Nares patent. No nasal discharge, no septal abnormalities noted. Tympanic membranes are normal and external auditory canals are clear. Oropharynx with no redness, swelling, or masses, exudates, or evidence of obstruction, uvula midline. Mucous membranes moist. Neck: Trachea midline, no thyromegaly or masses palpated, and no cervical lymphadenopathy. Supple, full range of motion without nuchal rigidity, or vertebral point tenderness. No Meningismus. Chest/axilla: Normal chest wall appearance and motion. Nontender with no deformity. No lesions are appreciated. Cardiovascular: Regular rate and rhythm with a normal S1 and S2. No gallops, murmurs, or rubs. Normal PMI, no JVD. No pulse deficits. Abdomen/GI: Soft, non-tender, with normal bowel sounds. No distension or tympany. No guarding or rebound. No evidence of tenderness throughout. Back: No spinal tenderness. No costovertebral tenderness. Full range of motion. Male : Normal genitalia with no discharge or lesions. Skin: Warm, dry with normal turgor. Normal color with no rashes, no lesions, and no evidence of cellulitis. MS/ Extremity: Pulses equal, no cyanosis. Neurovascular intact. Full, normal range of motion. Neuro: Awake and alert, GCS 15, oriented to person, place, time, and situation. Cranial nerves II-XII grossly intact. Motor strength 5/5 in all extremities. Sensory grossly intact. Cerebellar exam normal. Normal gait. Psych: Awake, alert, with orientation to person, place and time. Behavior, mood, and affect are within normal limits. 06:42 Respiratory: mild respiratory distress is noted, Respirations: labored breathing, that is mild, Breath sounds: rhonchi, + upper airway congestion. wheezing: expiratory 06:48 ECG was reviewed by the Attending Physician. [facility] Vital Signs: 06:06 BP 144 / 68; Pulse 95; Resp 16; Temp 98; Pulse Ox 96% on R/A; Weight 72.57 kg; Height 5 jm8 ft. 8 in. (172.72 cm); 08:16 BP 139 / 74; Pulse 105; Resp 18; Temp 98.0(O); Pulse Ox 92% ; mh5 06:06 Body Mass Index 24.33 (72.57 kg, 172.72 cm) jm8 MDM: 06:06 Patient medically screened. [facility] 06:45 Differential diagnosis: Anemia asthma, Bronchitis CHF exacerbation, Chronic Obstructive nicolette Pulmonary Disease bronchitis, flu, Myocardial Infarction pneumonia, Pneumothorax. Antibiotic administration: Levaquin given. The patient's Wells Deep Vein Thrombosis Score was calculated as follows: Total Score: 0-2 Pts- Low Risk. The patient's pulmonary embolism risk score was calculated as follows: Total Score: 0-2 points. This patient was found to be at low risk for a pulmonary embolism by using the Well's assessment criteria. Immunization status: Pneumococcal vaccine: Influenza vaccine: Data reviewed: vital signs, nurses notes, lab test result(s), EKG, radiologic studies, plain films. Data interpreted: monitoring manager: rate is 95 beats/min, rhythm is regular, Pulse oximetry: on room air is 96 %. Test interpretation: by ED physician or midlevel provider: ECG, plain radiologic studies. Counseling: I had a detailed discussion with the patient and/or guardian regarding: the historical points, exam findings, and any diagnostic results supporting the discharge/admit diagnosis, lab results, radiology results. 09/22 06:14 Order name: Basic Metabolic Panel [facility] 09/22 06:14 Order name: CBC with Diff [facility] 09/22 06:14 Order name: LFT's [facility] 09/22 06:14 Order name: Magnesium [facility] 09/22 06:14 Order name: NT PRO-BNP [facility] 09/22 06:14 Order name: PT-INR [facility] 09/22 06:14 Order name: Troponin (emerg Dept Use Only) [facility] 09/22 06:14 Order name: Blood Culture Adult (2) [facility] 09/22 06:15 Order name: Basic Metabolic Panel [facility] 09/22 06:15 Order name: CBC with Automated Diff [facility] 09/22 06:15 Order name: Liver (Hepatic) Function [facility] 09/22 06:15 Order name: Magnesium [facility] 09/22 06:41 Order name: Depakote [facility] 09/22 06:14 Order name: XRAY Chest (1 view) [facility] 09/22 06:14 Order name: EKG; Complete Time: 06:15 [facility] 09/22 06:14 Order name: Cardiac monitoring; Complete Time: 06:44 [facility] 09/22 06:14 Order name: EKG - Nurse/Tech; Complete Time: 06:44 [facility] 09/22 06:14 Order name: IV Saline Lock; Complete Time: 06:44 [facility] 09/22 06:14 Order name: Labs collected and sent; Complete Time: 06:44 [facility] 09/22 08:14 Order name: SARS-COV-2 RT PCR [facility] 09/22 09:21 Order name: Urine Dipstick-Ancillary [facility] 09/22 06:14 Order name: O2 Per Protocol; Complete Time: 06:44 [facility] 09/22 06:14 Order name: O2 Sat Monitoring; Complete Time: 06:44 [facility] EC:48 Rate is 95 beats/min. Rhythm is regular. QRS [place] is Normal. VA interval is normal. QRS nicolette interval is normal. QT interval is normal. No Q waves. T waves are Normal. Clinical impression: Sinus tachycardia. Interpreted by me. Reviewed by me. Administered Medications: Discontinued: NS 0.9% 1000 ml IV at 125 ml/hr continuous 06:46 Drug: Xopenex (levalbuterol) 2.5 mg Route: Inhalation; jm8 06:46 Drug: AtroVENT (ipratropium) Aerosol 0.5 mg Route: Inhalation; jm8 06:47 Drug: NS 0.9% 1000 ml Route: IV; Rate: 125 ml/hr; Site: right antecubital; jm8 06:47 Drug: SOLU-Medrol (methylPrednisoLONE) 125 mg Route: IVP; Site: right antecubital; jm8 07:30 Drug: NS 0.9% 1000 ml Route: IV; Rate: 75 ml/hr; Site: right antecubital; tr6 08:45 Drug: Xopenex (levalbuterol) 1.25 mg Route: Inhalation; tr6 08:45 Drug: Lasix (furosemide) 20 mg Route: IVP; Site: right antecubital; tr6 10:10 Drug: levofloxacin 500 mg Volume: 100 ml; Route: IVPB; Infused Over: 60 mins; Site: tr6 right antecubital; Disposition: 09/22/20 07:16 Hospitalization ordered by Irwin Bolanos for Observation. Preliminary diagnosis are Dyspnea, Chronic obstructive pulmonary disease with (acute) exacerbation, Pulmonary fibrosis, unspecified. - Bed requested for Telemetry/MedSurg (observation). - Status is Observation. tr6 - Condition is Fair. - Problem is new. - Symptoms have improved. Signatures: Dispatcher [employer] EDMS Judy Larios Corey, MD MD cha Williams, Irene, RN JOSEPH Joshua Funk RN RN 8 Supriya Gaitan RN RN tr6 Corrections: (The following items were deleted from the chart) 07:23 06:15 CORONAVIRUS+MR.LAB.BRZ ordered. EDOR EDOR 10:35 07:16 Hospitalization Ordered by Irwin Bolanos DO for Observation. Preliminary iw diagnosis is Dyspnea; Chronic obstructive pulmonary disease with (acute) exacerbation; Pulmonary fibrosis, unspecified. Bed requested for Telemetry/MedSurg (observation). Status is Observation. Condition is Fair. Problem is new. Symptoms have improved. nicolette 11:45 10:35 09/22/2020 07:16 Hospitalization Ordered by Irwin Bolanos DO for Observation. tr6 Preliminary diagnosis is Dyspnea; Chronic obstructive pulmonary disease with (acute) exacerbation; Pulmonary fibrosis, unspecified. Bed requested for Telemetry/MedSurg (observation). Status is Observation. Condition is Fair. Problem is new. Symptoms have improved. iw
--- NOTE | 2020-09-22 07:17 | ER ---
Nurse's Notes [facility] Name: Bryan Graf Age: 69 yrs Sex: Male : 1950 Arrival Date: 09/22/2020 Time: 06:05 Bed 16 Private MD: Diagnosis: Dyspnea;Chronic obstructive pulmonary disease with (acute) exacerbation;Pulmonary fibrosis, unspecified Presentation: 09/22 06:06 Chief complaint: EMS states: patient woke up from his sleep and had shortness of jm8 breath. Took one albuterol treatment prior to EMS arrival. EMS gave one atrovent and one albuterol upon arrival. Coronavirus screen: Client denies travel out of the [place] in the last 14 days. difficulty breathing, Client presents with at least one sign or symptom that may indicate coronavirus-19. Standard/surgical mask placed on the client. Ebola Screen: Patient negative for fever greater than or equal to 101.5 degrees Fahrenheit, and additional compatible Ebola Virus Disease symptoms Patient denies exposure to infectious person. Patient denies travel to an Ebola-affected area in the 21 days before illness onset. Initial Sepsis Screen: Does the patient meet any 2 criteria? HR > 90 bpm. Initial Sepsis Screen: Does the patient have a suspected source of infection? No. Patient's initial sepsis screen is negative. Risk Assessment: Do you want to hurt yourself or someone else? Patient reports no desire to harm self or others. Onset of symptoms was September 22, 2020 at 05:00. 06:06 Method Of Arrival: EMS: [facility] 06:06 Acuity: GELACIO 3 jm8 Historical: - Allergies: 06:10 Aspirin; jm8 06:10 PENICILLINS; jm8 - Home Meds: 06:10 acetaminophen 325 mg Oral tab as needed [Active]; Depakote 500 mg Oral TbEC 1 tab 2 jm8 times per day [Active]; Keppra 1,000 mg Oral tab 1 tab every 12 hours [Active]; oxycodone 30 mg Oral tab three times a day [Active]; Albuterol Nebulizer [Active]; - PMHx: 06:10 Chronic pain; CVA; Hypertension; Pneumonia; Seizures; swelling and pain to L lower leg; jm8 COPD; - PSHx: 06:10 Heart stents; jm8 - Immunization history:: Adult Immunizations up to date, Client reports having NOT received the Covid vaccine. . - Social history:: Smoking status: Patient reports the use of cigarette tobacco products. - Family history:: not pertinent. Screenin:10 Abuse screen: Denies threats or abuse. Denies injuries from another. Nutritional 8 screening: No deficits noted. Tuberculosis screening: No symptoms or risk factors identified. Fall Risk None identified. Assessment: 06:12 General: Appears in no apparent distress. uncomfortable, Behavior is calm, cooperative, jm8 appropriate for age. Pain: Complains of pain in chest Pain currently is 9 out of 10 on a pain scale. Quality of pain is described as heavy, pressure, Also complains of shortness of breath. Neuro: No deficits noted. Level of Consciousness is awake, alert, obeys commands, Oriented to person, place, time. Cardiovascular: No deficits noted. Respiratory: Reports shortness of breath labored breathing since 0500 Airway is patent Trachea midline Respiratory effort is even, unlabored, Respiratory pattern is regular, symmetrical. GI: No deficits noted. No signs and/or symptoms were reported involving the gastrointestinal system. : No deficits noted. No signs and/or symptoms were reported regarding the genitourinary system. EENT: No deficits noted. No signs and/or symptoms were reported regarding the EENT system. Derm: No deficits noted. No signs and/or symptoms reported regarding the dermatologic system. Musculoskeletal: No deficits noted. No signs and/or symptoms reported regarding the musculoskeletal system. Vital Signs: 06:06 BP 144 / 68; Pulse 95; Resp 16; Temp 98; Pulse Ox 96% on R/A; Weight 72.57 kg; Height 5 8 ft. 8 in. (172.72 cm); 08:16 BP 139 / 74; Pulse 105; Resp 18; Temp 98.0(O); Pulse Ox 92% ; mh5 06:06 Body Mass Index 24.33 (72.57 kg, 172.72 cm) [facility] ED Course: 06:05 Patient arrived in ED. 8 06:05 Luis Eduardo Stover MD is Attending Physician. [facility] 06:09 Triage completed. 8 06:10 Arm band placed on right wrist. 8 06:11 Patient has correct armband on for positive identification. Bed in low position. Call [facility] light in reach. Side rails up X2. Adult w/ patient. 06:31 XRAY Chest (1 view) In Process Unspecified. EDMS 06:48 Inserted saline lock: 22 gauge in right antecubital area, using aseptic technique. jm8 07:04 Irwin Bolanos DO is Hospitalizing Provider. [facility] 07:18 Supriya Gaitan RN is Primary Nurse. tr6 08:04 No provider procedures requiring assistance completed. tr6 08:15 Missed attempt(s): 20 gauge in left antecubital area. mh5 08:24 Warm blanket given. quality assurance monitor final on. Pulse ox on. NIBP on. mh5 11:45 Patient admitted, IV remains in place. intact. tr6 Administered Medications: Discontinued: NS 0.9% 1000 ml IV at 125 ml/hr continuous 06:46 Drug: Xopenex (levalbuterol) 2.5 mg Route: Inhalation; jm8 06:46 Drug: AtroVENT (ipratropium) Aerosol 0.5 mg Route: Inhalation; jm8 06:47 Drug: NS 0.9% 1000 ml Route: IV; Rate: 125 ml/hr; Site: right antecubital; jm8 06:47 Drug: SOLU-Medrol (methylPrednisoLONE) 125 mg Route: IVP; Site: right antecubital; jm8 07:30 Drug: NS 0.9% 1000 ml Route: IV; Rate: 75 ml/hr; Site: right antecubital; tr6 08:45 Drug: Xopenex (levalbuterol) 1.25 mg Route: Inhalation; tr6 08:45 Drug: Lasix (furosemide) 20 mg Route: IVP; Site: right antecubital; tr6 10:10 Drug: levofloxacin 500 mg Volume: 100 ml; Route: IVPB; Infused Over: 60 mins; Site: tr6 right antecubital; Output: 09:31 Urine: 200ml (Voided); Total: 200ml. tr6 09:31 Urine: 300ml (Voided); Total: 500ml. tr6 11:07 Urine: 300ml (Voided); Total: 800ml. tr6 Outcome: 07:16 Decision to Hospitalize by Provider. nicolette 11:44 Admitted to Med/surg accompanied by tech, via stretcher, room 225, with chart, Report tr6 called to rodger RUIZ 11:44 Condition: good 11:44 Instructed on the need for admit. 11:45 Patient left the ED. tr6 Signatures: Dispatcher [employer] Luis Eduardo Philippe MD MD cha Martinez, Maria [facility] Joshua Funk RN RN 8 Supriya Gaitan RN RN tr6 Corrections: (The following items were deleted from the chart) 06:55 06:06 BP 144 / 68; Pulse 95bpm; Resp 16bpm; Pulse Ox 96% RA; 72.57 kg; Height 5 ft. 8 8 in.; BMI: 24.3; 8 08:46 08:16 BP 139 / 74; Pulse 105bpm; Resp 18bpm; Pulse Ox 92%; 5 [facility]
[2020-09-22] MEDS ORDERED: FUROSEMIDE 20 MG/ 2ML VIAL ONE (07:54)
[2020-09-22] MEDS ORDERED: Levofloxacin500mg IV 500 MG/100 ML BAG IV ONE (07:55)
--- NOTE | 2020-09-22 09:08 | RAD REPORT ---
EXAM DESCRIPTION: RAD - Chest Single View - 09/22/2020 6:31 am CLINICAL HISTORY: Cough;COPD Chest pain. COMPARISON: Chest Single View dated 01/23/2020; Chest Single View dated 01/21/2020; Chest Single View dated 11/24/2019; Chest Single View dated 03/20/2019 FINDINGS: Portable technique limits examination quality. Mild interstitial pulmonary edema. The heart is upper limit normal in size with changes of a prior CA BG. IMPRESSION: Mild CHF.
[2020-09-22 09:21] LABS: Urine Blood 1+ (Negative); Urine Glucose Negative (Negative); Urine Protein Negative (Negative); Urine Specific Gravity 1.025 (1.005-1.030); Urine pH 5.5 (5.0-7.0)
[2020-09-22 11:27] LABS: Absolute Lymphocytes (CBC) 0.3 K/uL (0.7-4.9); Hematocrit 43.6 % (39.6-49.0); Lymphocytes % 3.5 % (15.3-44.8); MPV 9.5 fL (7.6-11.3); RBC Red Blood Cell Count 4.52 M/uL (4.33-5.43)
[2020-09-22 12:19] LABS: Blood Morphology Comment NOT SEEN (NOT SEEN); Platelet Estimate ADEQ; White Blood Cell Scan OK (OK)
[2020-09-22] MEDS ORDERED: NA CHLORIDE 0.9% 1,000 ML IV SCH (12:20)
[2020-09-22] MEDS ORDERED: ONDANSETRON 4 MG/2 ML VIAL IV PRN (12:20)
[2020-09-22] MEDS ORDERED: ACETAMINOPHEN 500 MG TAB PO PRN (12:20)
[2020-09-22] MEDS ORDERED: ALBUTEROL 2.5 MG/3 ML NEB SOL NEB PRN (12:20)
[2020-09-22] MEDS: NA CHLORIDE 0.9% 1,000 ML IV SCH ×2 (13:28→23:59)
--- NOTE | 2020-09-22 13:35 | P.HP ---
Certification for Inpatient Patient admitted to: Observation With expected LOS: <2 Midnights Patient will require the following post-hospital care: None Practitioner: I am a practitioner with admitting privileges, knowledge of patient current condition, hospital course, and medical plan of care. Services: Services provided to patient in accordance with Admission requirements found in Title 42 Section 412.3 of the Code of Federal Regulations Patient History Date of Service: 09/22/20 Primary Care Provider: unknown Reason for admission: Shortness of breath History of Present Illness: 69-year-old male with history of CAD, COPD, chronic pain and seizure disorder. Patient presented to emergency room with increasing shortness of breath. Patient reports taking medication for seizure disorder. Patient has had a cough, some wheezing noted. Patient has been feeling weak. Unsure whether patient is compliant with his medication. He came to the ER for further evaluation. Patient lives at home with . In the ER patient was evaluated. Patient appears slightly tachycardic. Somewhat disheveled. Lab pending at this time. Chest x-ray reviewed. Patient admitted for observation. 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 Mother -: Diabetes - Social History Smoking Status: Former smoker Alcohol use: No CD- Drugs: No Caffeine use: Yes Place of Residence: Home Review of Systems General: Weakness, Malaise, As per HPI Eyes: Unremarkable ENT: Unremarkable Respiratory: Shortness of Breath, Wheezing, As per HPI Cardiovascular: Unremarkable Gastrointestinal: Unremarkable Genitourinary: Unremarkable Musculoskeletal: Unremarkable Integumentary: Unremarkable Neurological: Unremarkable Lymphatics: Unremarkable Physical Examination - Vital Signs Temperature: 98.0 F Blood Pressure: 139/74 Pulse: 105 Respirations: 18 - Physical Exam General: Alert, In no apparent distress, Oriented x3, Cooperative, Disheveled HEENT: Atraumatic, PERRLA, Mucous membr. moist/pink Neck: Supple Respiratory: Expiratory wheezes (Bilateral) Cardiovascular: Normal pulses, Regular rate/rhythm Gastrointestinal: Normal bowel sounds, No tenderness, No masses, No rebound, No guarding Integumentary: No tenderness/swelling Neurological: Normal speech, Normal strength at 5/5 x4 extr, Normal tone, Normal affect Assessment and Plan - Plan Impression: Dyspnea secondary to COPD exacerbation with prior history of tobacco abuse Mild dehydration Hypertension CAD History of CVA Seizure disorder Chronic pain Plan: Dyspnea secondary to COPD exacerbation with prior history of tobacco abuse: Patient to be admitted for further evaluation. Maintain sats above 93%. We will continue with IV Solu-Medrol. Continue COPD medication. We will address tobacco cessation. Anticipate improvement over the next 24 hours. Mild dehydration : We will obtain lab. Will provide IV fluids. Hypertension: Restart medication carvedilol. CAD: Continue with DVT prophylaxis. History of CVA: Continue DVT prophylaxis. Restart home medication. Seizure disorder: Overall stable. Continue Keppra and Dilantin. Will obtain levels. Chronic pain: Continue oxycodone. DVT prophylaxis: Lovenox CODE STATUS: Patient is full code Advanced care [id number] minutes: Patient wishes to go home at discharge. Patient feels he does not need any home health. Why physical therapy assess ambulation and needs. Discharge Plan: Home Plan to discharge in: 24 Hours - Advance Directives Does patient have a Living Will: No Does patient have a Durable POA for Healthcare: No - Code Status/Comfort Care Code Status Assessed: Yes Code Status: Full Code Time Spent Managing Pts Care (In Minutes): 55
[2020-09-22 13:57] LABS: Protime INR 1.1
[2020-09-22 14:16] VITALS: BMI 24.3
[2020-09-22] MEDS: OXYCODONE HCL 5 MG TAB PO PRN (15:13)
[2020-09-22] MEDS: carvediloL 3.125 MG TAB PO SCH (17:20)
[2020-09-22] MEDS: METHYLPREDNISOLONE 40 MG INJ IV SCH (17:21)
[2020-09-22 18:31] LABS: Urine Appearance CLEAR (Clear); Urine Bilirubin NEGATIVE (Negative); Urine Blood TRACE (Negative); Urine Color YELLOW (Yellow); Urine Glucose NEGATIVE (Negative); Urine Protein NEGATIVE (Negative); Urine Urobilinogen 0.2 mg/dL (0.2-1.0); Urine pH 5.5 (5.0-7.0)
[2020-09-22 18:38] LABS: Urine Microscopic Reflex ORDER UMIC
[2020-09-22 18:49] LABS: Urine Bacteria <20 /HPF (NONE SEEN); Urine Mucus LIGHT /HPF (NONE SEEN); Urine RBC <5 /HPF (NONE SEEN)
[2020-09-22] MEDS: levETIRAcetam 500 MG TAB PO SCH (20:34)
[2020-09-22] MEDS: DIVALPROEX DR 500MG TAB PO SCH (20:34)
[2020-09-22] MEDS: IPRATROPIUM BROM 0.5MG/2.5ML NEB PRN (20:40)
[2020-09-22] MEDS: ARFORMOTEROL TARTRATE 15 MCG/2 ML VIAL.NEB NEB SCH (20:40)
[2020-09-23] MEDS: METHYLPREDNISOLONE 40 MG INJ IV SCH ×2 (00:55→09:15)
[2020-09-23] MEDS: OXYCODONE HCL 5 MG TAB PO PRN (00:59)
[2020-09-23 01:14] VITALS: O2SAT 94
[2020-09-23 06:25] LABS: Absolute Lymphocytes (CBC) 0.8 K/uL (0.7-4.9); Basophils % 0.8 % (0-1.3); Hematocrit 44.4 % (39.6-49.0); Lymphocytes % 9.2 % (15.3-44.8); MPV 9.4 fL (7.6-11.3); RBC Red Blood Cell Count 4.64 M/uL (4.33-5.43)
[2020-09-23] MEDS: carvediloL 3.125 MG TAB PO SCH (06:37)
[2020-09-23 06:44] LABS: BUN Blood Urea Nitrogen 13 mg/dL (7-18); Bicarbonate 26 mmol/L (21-32); Glucose Level 118 mg/dL (74-106); Magnesium 2.2 mg/dL (1.8-2.4); Potassium 4.2 mmol/L (3.5-5.1); Sodium Level 139 mmol/L (136-145); Thyroid Stimulating Hormone 0.526 uIU/mL (0.360-3.740)
--- NOTE | 2020-09-23 07:13 | P.DS ---
Admission Date: 09/22/20 Discharge Date: 09/23/20 Primary Care Provider: unknown Disposition: ROUTINE DISCHARGE Discharge Condition: GOOD Reason for Admission: Shortness of breath Consultations: Pulmonary-Dr. Hairston Procedures: COVID: Negative CXR: COMPARISON: Chest Single View dated 01/23/2020; Chest Single View dated 01/21/2020; Chest Single View dated 11/24/2019; Chest Single View dated 03/20/2019 FINDINGS: Portable technique limits examination quality. Mild interstitial pulmonary edema. The heart is upper limit normal in size with changes of a prior CABG. IMPRESSION: Mild CHF. Medical Problem List: Dyspnea secondary to COPD exacerbation with prior history of tobacco abuse Mild dehydration Hypertension CAD History of CVA Seizure disorder Chronic pain Brief History of Present Illness: 69-year-old male with history of CAD, COPD, chronic pain and seizure disorder. Patient presented to emergency room with increasing shortness of breath. Patient reports taking medication for seizure disorder. Patient has had a cough, some wheezing noted. Patient has been feeling weak. Unsure whether patient is compliant with his medication. He came to the ER for further evaluation. Patient lives at home with . In the ER patient was evaluated. Patient appears slightly tachycardic. Somewhat disheveled. Lab pending at this time. Chest x-ray reviewed. Patient admitted for observation. Hospital Course: Patient presented with dyspnea secondary to COPD exacerbation. Patient with prior tobacco use. The patient was hospitalized for observation. X-ray showed no evidence of pneumonia. Some mild dehydration was noted. Patient also received IV fluids. The patient did well in the course of his stay. Patient back to baseline. Room air saturations within normal range. At discharge the patient will continue with prednisone 10 mg 1 pill twice daily for 7 days then 1 pill once daily for 7 days. The patient will continue with COPD medicationSymbicort 2 puffs twice daily and albuterol 2 puffs three times a day as needed for shortness of breath. COPD education and compliance with medication addressed in detail. Recommend follow-up with pulmonology in 1 to 2 weeks to follow-up his hospitalization and continue his care. Patient with hypertension, CAD and prior CVA. Patient previously on carvedilol. This was restarted. Blood pressure stable. At discharge patient will continue with carvedilol 3.125 mg 1 pill twice daily. Recommend to maintain blood pressure less than 130/80. Further adjustment can be done by his PCP. Patient with seizure disorder. This appears stable. At discharge patient will continue with his current medications of Depakote 500 mg 1 pill twice daily and Keppra 1000 mg 1 pill twice daily. Seizure precautions in place. No driving, o perating heavy machinery, swimming, or standing on any tall structures alone. Continue with neurology follow-up as directed. Patient with chronic pain. At discharge patient will continue with his m edications including gabapentin 600 mg twice daily and oxycodone 30 mg four times a day. Hold medication if with increased sedation. Recommend follow-up with chronic pain management to further monitor and adjust medication. Fall precautions in place. Vital Signs/Physical Exam: Temp Pulse Resp BP Pulse Ox 97.5 F 81 18 139/74 94 09/23/20 04:00 09/23/20 06:37 09/23/20 04:00 09/23/20 06:37 09/23/20 04:00 General: Alert, In no apparent distress, Oriented x3, Cooperative HEENT: Atraumatic Neck: Supple Respiratory: Clear to auscultation bilaterally, Normal air movement Cardiovascular: Normal pulses, Regular rate/rhythm Gastrointestinal: Normal bowel sounds, Soft and benign, Non-distended, No tenderness, No masses, No rebound, No guarding Musculoskeletal: No erythema, No tenderness, No warmth Integumentary: No tenderness/swelling Neurological: Normal speech, Normal strength at 5/5 x4 extr, Normal tone, Normal affect Laboratory Data at Discharge: WBC 8.90 K/uL (4.3-10.9) 09/23/20 05:43 Hgb 15.1 g/dL (13.6-17.9) 09/23/20 05:43 Hct 44.4 % (39.6-49.0) 09/23/20 05:43 Plt Count 281 K/uL (152-406) 09/23/20 05:43 PT 12.7 SECONDS (9.5-12.5) H 09/22/20 13:03 INR 1.10 09/22/20 13:03 Sodium 139 mmol/L (136-145) 09/23/20 05:43 Potassium 4.2 mmol/L (3.5-5.1) 09/23/20 05:43 BUN 13 mg/dL (7-18) 09/23/20 05:43 Creatinine 0.65 mg/dL (0.55-1.3) 09/23/20 05:43 Glucose 118 mg/dL (74-106) H 09/23/20 05:43 Magnesium 2.2 mg/dL (1.8-2.4) 09/23/20 05:43 Total Bilirubin Cancelled 09/22/20 11:18 AST Cancelled 09/22/20 11:18 ALT Cancelled 09/22/20 11:18 Alkaline Phosphatase Cancelled 09/22/20 11:18 Home Medications: Divalproex Sodium [Depakote] 500 mg PO BID 11/27/15 levETIRAcetam [Keppra*] 1,000 mg PO BID 11/27/15 Gabapentin 1 tab PO BID 09/22/20 Oxycodone HCl 1 tab PO QID PRN 09/22/20 Albuterol Inhaler [Ventolin Inhaler*] 2 puff IH TID PRN #1 09/23/20 Budesonide/Formoterol Fumarate [Symbicort 160-4.5 Mcg Inhaler] 2 puff IH BID #1 hfa.aer.ad 09/23/20 carvediloL [Coreg*] 3.125 mg PO BID 6AM 6PM #60 tab 09/23/20 predniSONE [Deltasone*] 10 mg PO SEECOM #21 tab 09/23/20 New Medications: carvediloL [Coreg*] 3.125 mg PO BID 6AM 6PM #60 tab predniSONE [Deltasone*] 10 mg PO SEECOM #21 tab Budesonide/Formoterol Fumarate [Symbicort 160-4.5 Mcg Inhaler] 2 puff IH BID #1 hfa.aer.ad Albuterol Inhaler [Ventolin Inhaler*] 2 puff IH TID PRN #1 PRN Reason: Shortness Of Breath Physician Discharge Instructions: Patient presented with dyspnea secondary to COPD exacerbation. Patient with prior tobacco use. The patient was hospitalized for observation. X-ray showed no evidence of pneumonia. Some mild dehydration was noted. Patient also received IV fluids. The patient did well in the course of his stay. Patient back to baseline. Room air saturations within normal range. At discharge the patient will continue with prednisone 10 mg 1 pill twice daily for 7 days then 1 pill once daily for 7 days. The patient will continue with COPD medicationSymbicort 2 puffs twice daily and albuterol 2 puffs three times a day as needed for shortness of breath. COPD education and compliance with medication addressed in detail. Recommend follow-up with pulmonology in 1 to 2 weeks to follow-up his hospitalization and continue his care. Patient with hypertension, CAD and prior CVA. Patient previously on carvedilol. This was restarted. Blood pressure stable. At discharge patient will continue with carvedilol 3.125 mg 1 pill twice daily. Recommend to maintain blood pressure less than 130/80. Further adjustment can be done by his PCP. Patient with seizure disorder. This appears stable. At discharge patient will continue with his current medications of Depakote 500 mg 1 pill twice daily and Keppra 1000 mg 1 pill twice daily. Seizure precautions in place. No driving, operating heavy machinery, swimming, or standing on any tall structures alone. Continue with neurology follow-up as directed. Patient with chronic pain. At discharge patient will continue with his medications including gabapentin 600 mg twice daily and oxycodone 30 mg four times a day. Hold medication if with increased sedation. Recommend follow-up with chronic pain management to further monitor and adjust medication. Fall precautions in place. Diet: AHA Activity: Fall precautions Followup: Unknown,U [Primary Care Provider] - Time spent managing pt's care (in minutes): 55
[2020-09-23] MEDS: ARFORMOTEROL TARTRATE 15 MCG/2 ML VIAL.NEB NEB SCH (08:05)
[2020-09-23] MEDS: IPRATROPIUM BROM 0.5MG/2.5ML NEB PRN (08:05)
[2020-09-23 09:00] VITALS: BP 144/67; TEMP 97.8
[2020-09-23] MEDS ORDERED: PRASUGREL (EFFIENT) 10 MG TAB PO SCH (09:00)
[2020-09-23] MEDS ORDERED: ENOXAPARIN 40 MG/0.4 ML SQ SCH (09:00)
--- NOTE | 2020-09-23 09:12 | RAD REPORT ---
EXAM DESCRIPTION: Olivia Hill And Lat (2 Views)09/23/2020 5:41 am CLINICAL HISTORY: Shortness of breath COMPARISON: September 22, 2020 FINDINGS: Bilateral interstitial lung opacities probably chronic. Calcified granulomas within the noreen ngs. Heart is mildly enlarged. Postsurgical changes involve the chest IMPRESSION: No acute abnormalities displayed
[2020-09-23] MEDS: levETIRAcetam 500 MG TAB PO SCH (09:15)
[2020-09-23] MEDS: DIVALPROEX DR 500MG TAB PO SCH (09:15)
== END 2020-09-23 10:50 | disposition home or self-care (01) ==
LOC: ER 06:02 → ERHOLD 10:13 → 2ND 11:36
PROVIDERS: ADMIT Family Medicine; ATTEND Family Medicine
DX: J44.1 Chronic obstructive pulmonary disease with (acute) exacerbation (principal); Z20.822 Contact with and (suspected) exposure to COVID-19; E86.0 Dehydration; I10 Essential (primary) hypertension; I25.10 Atherosclerotic heart disease of native coronary artery without angina pectoris; Z87.891 Personal history of nicotine dependence; G40.909 Epilepsy, unspecified, not intractable, without status epilepticus; G89.29 Other chronic pain; Z86.73 Personal history of transient ischemic attack (TIA), and cerebral infarction without residual deficits; E78.5 Hyperlipidemia, unspecified; Z95.1 Presence of aortocoronary bypass graft; Z86.711 Personal history of pulmonary embolism
CPT/HCPCS: 93005; 87040; 85025 ×2; 80048; 36415; 83735; 85610; 80164; 84443; 84484; 84439; 80177; 71045; 71046; 97161; 94640; 96375; 96374; 99285; U0003; J1940; J1650; J7605 ×2; J7030; J2930; J2920 ×3; G0378 ×3; 81003; 81015

== ENCOUNTER 2022-05-18 18:13 | Emergency (ER) | payer OTHER ==
--- OUTSIDE RECORDS SUMMARY | 2022-05-18 18:21 | XMS REPORT | Continuity of Care Document ---
:1950 Author Organization [facility] t Address [address] [place] [address] Care Team Providers Name Role Phone EMILY MARY MALLORY Primary Care Physician Unavailable MIKI NICHOLS Attending Clinician Unavailable CLARY BRAY Attending Clinician Unavailable AUGUSTIN DC Attending Clinician Unavailable MAXIMILIANO RUSSELL Attending Clinician Unavailable AUGUSTNI GUAMAN Attending Clinician Unavailable HENRY BULL Attending Clinician Unavailable MIKI NICHOLS Admitting Clinician Unavailable CLARY BRAY Admitting Clinician Unavailable AUGUSTIN DC Admitting Clinician Unavailable MAXIMILIANO RUSSELL Admitting Clinician Unavailable AUGUSTIN GUAMAN Admitting Clinician Unavailable HENRY BULL Admitting Clinician Unavailable Problems Condition Condition Condition Status Onset Resolution Last Treating Co mments Source Name Details Category Date Date Treatment Clinician Date Transient Transient Disease Active [facility] alteration alteration 8-30 [facility] of of 00:00: Medical awareness awareness 00 Cent er Altered Altered Disease Active [facility] mental mental 8-25 [facility] status status 00:00: Medical 00 [place] Ptosis, Ptosis, Disease Active [facility] left left 8-25 [facility] 00:00: Medical 00 [place] COPD COPD Disease Active [facility] (chronic (chronic 8-25 [facility] obstructiv obstructiv 00:00: Ia dical e e 00 Center pulmonary pulmonary disease) disease) S/P CABG x S/P CABG x Disease Active [facility] 3 3 8-16 [facility] 00[facility] Medical 00 [facility] Acute Acute Disease Active [facility] pulmonary pulmonary 8-16 [facility] insufficie insufficie 00:00: Me dical ncy ncy 00 Center following following thoracic thoracic surgery surgery Postoperat Postoperat Disease Active [facility] marilou anemia marilou anemia 8-16 Thao kes due to due to 00:00: Medical acute acute 00 Center blood loss blood loss NSTEMI NSTEMI Disease Active [facility] (non-ST (non-ST 8-15 [facility] elevated elevated 00:00: Medica l myocardial myocardial 00 Ce nter infarction infarction ) ) Paroxysmal Paroxysmal Disease Active [facility] atrial atrial 8-14 [facility] fibrillati fibrillati 00:00: Me dical on on Center Pulmonary Pulmonary Disease Active [facility] embolism embolism 8-14 [facility] 00:00: Medical 00 [place] Left-sided Left-sided Disease Active [facility] muscle muscle 6-26 [facility] weakness weakness 00:00: Medica l [place] Muscle Muscle Disease Active [facility] cramps cramps 6-26 [facility] 00:[facility]: Medical 00 Center Tension Tension Disease Active [facility] type type 6-26 [facility] headache headache 00:00: Medica l 00 [place] CVA CVA Disease Active [facility] (cerebral (cerebral 6-24 [facility] vascular vascular 00:00: Medica l accident) accident) 00 Cent er Seizure Seizure Disease Active [facility] disorder disorder 6-24 [facility] 00:[facility]: Medical 00 Center History of History of Disease Active [facility] atrial atrial 6-24 [facility] fibrillati fibrillati 00:00: Me dical on on Center Chronic Chronic Disease Active [facility] anticoagul anticoagul 6-24 [facility] ation ation 00:00: Medical 00 [place] Cellulitis Cellulitis Disease Active [facility] 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 00:00: 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 space of 00 [place] mouth mouth Mandibular Mandibular Disease Active [facility] abscess abscess 3-18 [facility] 00:[facility]: Medical 00 Center CVA CVA Diagnosis Active 2011-09-21 Mem oria Active 09-12 14:49:00 l 09/13/2011 06:00: Richard vargas 00 Rehabilita tion Dysarthria Dysarthri Problem Active 2011-10-03 [facility] a Active 08:09:33 l Problem Miguel 10/03/2011 [facility] Weakness Weakness Problem Active 2011-10-03 Memoria Active 08:09:33 l Problem Miguel 10/03/2011 [facility] CVA CVA Diagnosis Active 2011-09-21 Mem oria Active 14:49:00 l Rehabilita Richard n tion Allergies, Adverse Reactions, Alerts Allergy Allergy Status Severity Reaction(s) Onset Inactive Treating Comm ents Source Name Type Date Date Clinician Aspirin Propensi Active Hives [facility] (Tartraz ty to 3-18 [facility] ine adverse 00:00: Medical Only) reaction 00 Center s ASPIRIN Allergy Active Hives [facility] (TARTRAZ 3-18 [facility] INE 00:00: Medical ONLY) 00 Center PENICILL Allergy Active Hives [facility] INS 3-16 [facility] 00:00: Medical 00 Center Aspirin Propensi Active Hives [facility] ty to 3-16 [facility] adverse 00:00: Medical reaction 00 Center s Penicill Propensi Active Hives, [facility] ins ty to Swelling 3-16 [facility] adverse 00:00: Medical reaction 00 Center s ASPIRIN Allergy Active Hives [facility] 3-16 [facility] 00:[facility]: Medical 00 Center aspirin aspirin Active [facility]oria [facility] [place] codeine codeine Active [facility]oria l Miguel penicill penicill Active Memori a ins ins l [place] Family History Family Member Diagnosis Comments Start Date Stop Date Source Natural mother Diabetes [facility] Social History Social Habit Start Date Stop Date Quantity Comments Source Alcohol intake 2016-12-13 2016-12-[address] [facility] 00:00:00 00:00:00 non-drinker of Medical Ce nter alcohol (finding) Cigarettes smoked 2016-06-30 2016-06-[address] [facility] current (pack per 00:00:00 00:00:00 Medical Center day) - Reported Tobacco use and 2016-06-30 2016-06-[address] [facility]es exposure 00:00:00 00:00:00 Medical Center Sex Assigned At [address]es 00:00:00 00:00:00 Medical Center Smoking Status Start Date Stop Date Source Current every day smoker 2016-06-30 00:00:00 [facility] Medications Ordered Filled Start Stop Current Ordering Indication Dosage Frequency Signature Comments Components Source Medication Medication Date Date Medication? Clinician (SIG) Name Name acetcristopherph 2016- Yes 500mg Take [address] en 9-08 mg by [facility] (TYLENOL) 12:11: mouth Medical 500 MG 30 every 4 Center tablet (four) hours as needed for Pain. arformotero 2017- Yes 15ug Q.5D Take [address] l (BROVANA) 9-08 (15 mcg [facility] 15 mcg/2 mL 00:00: total) by Artwardly nebulizer 00 nebulizati Cent er solution on 2 (two) times daily. rivaroxaban Yes 15mg Take [address] [facility] (XARELTO) 9-08 tablet (15 [facility] s 15 mg Tab 00:00: mg total) Med ical tablet 00 by mouth Center daily with dinner. rOPINIRole 2016- Yes 1mg QD Take 0.[address] [facility] [facility] (REQUIP) 2 9-08 tablets (1 Janae es MG tablet 00:00: mg total) Med ical 00 by mouth Center nightly. melatonin 5 2017-0 Yes 5mg QD Take [address] [facility] mg Tab 9-08 tablet (5 [facility] tablet 00:00: mg total) Medica l 00 by mouth Center nightly. pantoprazol 2016-0 Yes 40mg QD Take [address] [facility] [facility] e 9-08 tablet (40 [facility] (PROTONIX) 00:00: mg total) Me dical 40 MG 00 by mouth Center tablet daily. Soma 2011- Yes 1, PO, Memoria 6-16 Substituti l 23:36: on [place] 37 Allowed, TAB OXYcodone Yes 1, PO, Memori a 6-16 PRN, as l 23:36: needed for [place] 23 pain, Substituti on Allowed, TAB Ambien 5 mg 2011- Yes Meilani H 5 mg, 1 Memoria oral tablet 6-15 [place] tab, PO, l 19:27: Bedtime, [place] 59 30 tab, Substituti on Allowed, TAB Keppra 750 2011- Yes Meilani H 750 mg, 1 Memoria mg oral 6-15 [place] tab, PO, l tablet 19:27: Q12H, 60 Miguel 52 tab, Substituti on Allowed, TAB famotidine Yes Meilani H 20 mg, 1 Memoria 20 mg oral 6-15 [place] tab, PO, l tablet 19:27: BID, 60 [place] 44 tab, Substituti on Allowed, TAB Colace [...] West Route: PO, l 02:00: Bedtime, Miguel Start date: 09/21/11 21:00:00, Duration: 30 day, Stop date: 10/20/11 21:00:00 Ambien 2011- No Marcial De 5 mg, 1 Me [...] 30 day, Stop date: 10/21/11 7:00:00 Plavix 2011-0 No Jeff 75 mg, 1 Memori a - Jef tab, l 14:00: [place] Route: PO, Richard n 00 Drug form: TAB, Daily, Start date: 09/15/11 9:00:00, Duration: 30 day, Stop date: 10/14/11 9:00:00 Saline 2011- No Jeff 3 mL, Memoria Flush 0.9% 09-14 Jef Route: l 03:49: Efrain IVP, Drug Miguel Form: INJ, Q8H, PRN Line Flush, Start date: 09/14/11 22:49:00, Duration: 30 day, Stop date: 10/14/11 22:48:00, Administer at least once every 8 hoursAdmin ister at least once every 8 hours Milk of 2011-0 No Jeff 30 mL, Memoria Magnesia - Jef Route: PO, l 03:49: [place] Drug Form: Richard n 00 SUSP, Daily, PRN Constipati on, Start date: 09/14/11 22:49:00, Duration: 30 day, Stop date: 10/14/11 22:48:00 bisacodyl 2011- No Jeff 10 mg, 1 Mem oria 09-14 Jef supp, l 03:49: [place] Route: MA, Richard n 00 Drug form: SUPP, Bedtime, PRN Constipati on, Start date: 09/14/11 22:49:00, Duration: 30 day, Stop date: 10/14/11 22:48:00 zolpidem 2011- No Marcial De 5 mg, 1 Memoria 6-02 West tab, l 03:49: Route: PO, Miguel 00 Drug form: TAB, Bedtime, PRN Insomnia, Start date: 09/14/11 22:49:00, Duration: 30 day, Stop date: 10/14/11 22:48:00 Keppra 750 2011-0 No Jeff 750 mg, 3 M emoria mg oral 09-14 Jef tab, l tablet 02:00: Ef[place] Route: PO, Herm graham 00 Drug form: TAB, Q12H, Start date: 09/14/11 21:00:00, Duration: 30 day, Stop date: 10/14/11 9:00:00 famotidine 2011-0 No Jeff 20 mg, 1 Me moria 20 mg oral - Jef tab, l tablet 22:00: Efrain Route: [...] Jeff 80 mg, 1 M emoria n - Jef tab, l 22:00: [place] Route: PO, Richard n 00 Drug form: TAB, QPM, Start date: 09/14/11 17:00:00, Duration: 30 day, Stop date: 10/13/11 17:00:00 enoxaparin 2011-0 No Jeff 40 mg, 0.4 Memoria - Jef mL, Route: l 20:00: E[place] SUB-Q, [...] Source Systolic (mm Hg) 2011-10-01 10:34:00 Luan Rivera Respitory Rate 2011-10-01 10:34:00 [facility] [place] Heart Rate 2011-10-01 10:34:00 Lety Rivera Temperature Oral (F) 2011-10-01 10:34:00 97.6 F [facility] [place] Diastolic (mm Hg) 2011-10-01 10:34:00 Mem orial Miguel Diastolic (mm Hg) 2011-10-01 00:44:00 Mem orial Miguel Respitory Rate 2011-10-01 00:44:00 Memori al [place] Heart Rate 2011-10-01 00:44:00 [facility] Systolic (mm Hg) 2011-10-01 00:44:00 Luan rial [place] Temperature Oral (F) 2011-10-01 00:44:00 98.1 F [facility] [place] Systolic (mm Hg) 2011-09-30 21:00:00 Luan rial [place] Diastolic (mm Hg) 2011-09-30 21:00:00 Mem orial Miguel Heart Rate 2011-09-30 21:00:00 [facility] Respitory Rate 2011-09-30 21:00:00 Memori al Miguel Temperature Oral (F) 2011-09-30 10:03:00 97.8 F [facility] [place] Height 2011-09-15 03:49:00 172.72 cm [facility] [place] Weight 2011-09-15 03:49:00 [facility] [place] Procedures This patient has no known procedures. Encounters Start End Encounter Admission Attending Care Care Encounter Source Date/Time Date/Time Type Type Clinicians Facility Department ID 2011-09-14 2011-10-01 SAMUEL BAKER [id number] Memoria 22:16:00 13:00:00 52 l [place] Results Test Description Test Time Test Comments Results Result Comments Source B-TYPE NATRIURETIC FACTOR (BNP) 2016-12-21 05:56:00 Test Item Value Reference Range Interpretation Comme nts B-TYPE NATRIURETIC PEPTIDE (BEAKER) (test code = 700) 136 pg/mL 0-100 H COMPREHENSIVE METABOLIC [id number] 05:53:00 Test Item Value Reference Range Interpretation [...] NOT APPLICABLE FOR DIALYSIS PATIEN TS. POCT-GLUCOSE [id number] 16:33:00 Test Item Value Reference Range Interpretation Comments POC-GLUCOSE METER 116 mg/dL 70-110 H TESTED AT [place] [address] ([facility]) (test code = [facility] 1538) [id number] POCT-GLUCOSE [id number] 11:08:00 Test Item Value Reference Range Interpretation Comments POC-GLUCOSE METER 133 mg/dL 70-110 H TESTED AT [place] [address] ([facility]) (test code = [facility] 1538) [id number] POCT-GLUCOSE [id number] 06:11:00 Test Item Value Reference Range Interpretation Comments POC-GLUCOSE METER 105 mg/dL 70-110 TESTED AT [place] [address] ([facility]) (test code = [facility] 1538) [id number] POCT-GLUCOSE [id number] 20:28:00 Test Item Value Reference Range Interpretation Comments POC-GLUCOSE METER 124 mg/dL 70-110 H TESTED AT [place] [address] ([facility]) (test code = [facility] 1538) [address] POCT-GLUCOSE [id number] 16:46:00 Test Item Value Reference Range Interpretation Comments POC-GLUCOSE METER 113 mg/dL 70-110 H TESTED AT [place] [address] ([facility]) (test code = TISHA Cazares [place] 1538) [address] POCT-GLUCOSE [id number] 11:46:00 Test Item Value Reference Range Interpretation Comments POC-GLUCOSE METER 113 mg/dL 70-110 H TESTED AT [place] [address] ([facility]) (test code = TISHA Cazares [place] 1538) [id number] URINE [id number] 09:54:00 Test Item Value Reference Range Interpretation Comments CULTURE ([facility]) (test KLEBSIELLA A >100, 000 [...] S Sulfamethoxazole (test code = 47) POCT-GLUCOSE [id number] 06:46:00 Test Item Value Reference Range Interpretation Comments POC-GLUCOSE METER 111 mg/dL 70-110 H TESTED AT [place] [address] ([facility]) (test code = TISHA Cazares [facility] 1538) [id number] POCT-GLUCOSE [id number] 20:48:00 Test Item Value Reference Range Interpretation Comments POC-GLUCOSE METER 128 mg/dL 70-110 H TESTED AT [place] [address] ([facility]) (test code = TISHA Caz[place] 1538) [address] POCT-GLUCOSE [id number] 16:00:00 Test Item Value Reference Range Interpretation Comments POC-GLUCOSE METER 127 mg/dL 70-110 H TESTED AT [place] [address] ([facility]) (test code = TISHA Cazares [facility] 1538) [id number] POCT-GLUCOSE [id number] 11:16:00 Test Item Value Reference Range Interpretation Comments POC-GLUCOSE METER 273 mg/dL 70-110 H TESTED AT [facility] (test code = [place] 1538) [id number] COMPREHENSIVE METABOLIC [id number] 06:44:00 Test Item Value Reference Range Interpretation [...] S NOT APPLICABLE FOR DIALYSIS PATIEN TS. [id number] 06:27:00 Test Item Value Reference Range Interpretation Comments PARTIAL THROMBOPLASTIN TIME 38.5 seconds 22.5-36.0 H (BEAKER) (test code = 760) PROTHROMBIN [id number] 06:26:00 Test Item Value Reference Range Interpretation Comments PROTIME (BEAKER) (test code = 16.3 seconds 11.7-14.7 H 759) INR (BEAKER) (test code = 370) 1.3 <=5.9 RECOMMENDED COUMADIN/WARFARIN INR THERAPY RANGESSTANDARD DOSE: 2.0 - 3.0 Includes: PROPHYLAXIS for venous thrombosis, systemic embolization; TREATMENT for venous thrombosis and/or pulmonary embolus.HIGH RISK: Target INR is 2.5-3.5 for patients with mechanical heart valves.CBC W/PLT COUNT & AUTO [id number] 06:25:00 Test Item Value Reference Range Interpretation [...] PERCENT (BEAKER) (test code = 2801) POCT-GLUCOSE [id number] 06:22:00 Test Item Value Reference Range Interpretation Comments POC-GLUCOSE METER 131 mg/dL 70-110 H TESTED AT [facility] 67[address] (BEAKER) (test code = [place] 1538) [id number] URINALYSIS W/ [id number] 20:35:00 Test Item Value Reference Range Interpretation [...] SOURCE(BEAKER) (test code Urine, Clean Catch = 8092) POCT-GLUCOSE [id number] 20:21:00 Test Item Value Reference Range Interpretation Comments POC-GLUCOSE METER 132 mg/dL 70-110 H TESTED AT [facility] [address] (BEAKER) (test code = TISHA Cazares [place] 1538) [id number] POCT-GLUCOSE [id number] 16:17:00 Test Item Value Reference Range Interpretation Comments POC-GLUCOSE METER 101 mg/dL 70-110 TESTED AT [facility] [address] (BEAKER) (test code = T[place]HA Caz[place] 1538) [address] POCT-GLUCOSE [id number] 13:35:00 Test Item Value Reference Range Interpretation Comments POC-GLUCOSE METER 143 mg/dL 70-110 H TESTED AT [facility] [address] (BEAKER) (test code = TISHA Cazares [facility] 1538) [address] BASIC METABOLIC [id number] 06:31:00 Test Item Value Reference Range Interpretation [...] APPLICABLE FOR DIALYSIS PATIEN TS. BASIC METABOLIC [id number] 05:41:00 Test Item Value Reference Range Interpretation [...] 0-0 (BEAKER) (test code = 413) VITAMIN [id number] 06:04:00 Test Item Value Reference Range Interpretation Comments VITAMIN B12 (BEAKER) (test code = 619 pg/mL 213-816 774) [id number] 06:04:00 Test Item Value Reference Range Interpretation Comments FERRITIN (BEAKER) (test code = 361) 335 ng/mL 5-275 H Effective 03/02/2014: Reference Range ChangeNew: Male 5-275 Previous: Male 22- 322 Female 5-275 Female 10-291FOLATE, [id number] 06:04:00 Test Item Value Reference Range Interpretation Comments FOLATE (BEAKER) (test code = 362) 4.9 ng/mL >=7.0 L Effective 03/02/2014: Folate Reference Range ChangeNew: >=7.0 Previous: >=5.4BASIC METABOLIC [id number] 05:47:00 Test Item Value Reference Range Interpretation [...] (BEAKER) (test code = 413) BASIC METABOLIC [id number] 05:53:00 Test Item Value Reference Range Interpretation [...] WBC 0-0 (BEAKER) (test code = 413) [id number] 22:53:00 Test Item Value Reference Range Interpretation Comments ACTIVATED CLOTTING TIME 153 sec TEST ED AT [place] [address] ([facility]) (test code = [place] [address]) [address] [id number] 22:35:00 Test Item Value Reference Range Interpretation Comments ACTIVATED CLOTTING TIME 202 sec TEST ED AT [place] [address] ([facility]) (test code = [place] [address]) [address] [id number] 22:04:00 Test Item Value Reference Range Interpretation [...] (BEAKER) (test code = 413) BASIC METABOLIC [id number] 08:43:00 Test Item Value Reference Range Interpretation [...] (BEAKER) (test code = 413) BASIC METABOLIC [id number] 06:44:00 Test Item Value Reference Range Interpretation [...] PATIEN TS. CBC W/PLT COUNT & AUTO [id number] 21:33:00 Test Item Value Reference Range Interpretation [...] 0-1 PERCENT (BEAKER) (test code = 2801) [id number] 07:21:00 Test Item Value Reference Range Interpretation Comments PHOSPHORUS (BEAKER) (test code = 3.6 mg/dL 2.3-4.7 604) [id number] 07:21:00 Test Item Value Reference Range Interpretation Comments MAGNESIUM (BEAKER) (test code = 1.9 mg/dL 1.6-2.6 627) COMPREHENSIVE METABOLIC [id number] 07:21:00 Test Item Value Reference Range Interpretation [...] code = 413) PHENYTOIN LEVEL, TOTAL AND [id number] 01:14:00 Test Item Value Reference Range Interpretation Comments PHENYTOIN (DILANTIN) (BEAKER) 22.9 ug/mL 10.0-20.0 H (test code = 605) PHENYTOIN FREE (BEAKER) (test 3.51 mcg/ml 1.00-2.00 H code = 847) VALPROIC ACID LEVEL, [id number] 20:49:00 Test Item Value Reference Range Interpretation Comments VALPROIC ACID TOTAL (BEAKER) (test 33 ug/mL 50-100 L code = 924) Therapeutic range for some clinical conditions may be >100 ug/mLPOCT-GLUCOSE [id number] 17:10:00 Test Item Value Reference Range Interpretation Comments POC-GLUCOSE METER 108 mg/dL 70-110 TESTED AT [facility] [address] (BEAKER) (test code = [place] 15[address]) [address] PHENYTOIN LEVEL, [id number] 12:29:00 Test Item Value Reference Range Interpretation Comments PHENYTOIN (DILANTIN) (BEAKER) 16.3 ug/mL 10.0-20.0 (test code = 605) CREATINE KINASE (CK), TOTAL AND [id number] 12:26:00 Test Item Value Reference Range Interpretation Comments CREATINE KINASE TOTAL (BEAKER) 47 U/L 29-200 (test code = 380) CREATINE KINASE-MB (BEAKER) (test 1.1 ng/mL 0.0-6.6 code = 750) CREATINE KINASE-MB INDEX (BEAKER) 2.3 % (test code = 395) Effective 03/02/2014: CK-MB Reference Range ChangeNew: 0.0-6.6 Previous: 0.0-4.9CK-MB Reference Range:<6.7 Normal6.7-10.0 Borderline>10.0 Abnormal TROPONIN [id number] 12:26:00 Test Item Value Reference Range Interpretation Comments TROPONIN I (BEAKER) (test code = 0.11 ng/mL 0.00-0.03 H 397) Effective 03/02/2014: Reference Range ChangeNew: 0.00-0.03 Previous 0.00- 0.15Troponin I (TnI) levelsmust be interpreted in the context of the presenting symptoms and the clinical findings. Elevated TnI levels indicate myocardial damage, but are not specific for ischemic heart disease. Elevated TnI levels are seen in patients with other cardiac conditions (including myocarditis and congestive heart failure), and slight TnI elevations occur in patients with other conditions, including sepsis, renal failure, acidosis, acute neurological disease, and persistent tachyarrhythmia.[id number] 12:17:00 Test Item Value Reference Range Interpretation Comments MAGNESIUM (BEAKER) (test code = 2.0 mg/dL 1.6-2.6 627) COMPREHENSIVE METABOLIC [id number] 12:17:00 Test Item Value Reference Range Interpretation [...] PATIEN TS. CBC W/PLT COUNT & AUTO [id number] 11:55:00 Test Item Value Reference Range Interpretation [...] PERCENT (BEAKER) (test code = 2801) URINE [id number] 11:55:00 Test Item Value Reference Range Interpretation Comments CULTURE (BEAKER) (test code = 1095) No growth BLOOD GAS, [id number] 10:28:00 Test Item Value Reference Range Interpretation [...] mmol/L 21-29 = 388) BASE EXCESS ARTERIAL ([facility]) 2.1 mmol/L -2.0-3.0 (test code = 387) PATIENT TEMPERATURE ([facility]) (test 36.6 C code = 1818) FIO2 ([facility]) (test code = 1819) 32.0 % POCT-GLUCOSE [id number] 09:53:00 Test Item Value Reference Range Interpretation Comments POC-GLUCOSE METER 184 mg/dL 70-110 H TESTED AT [facility] [address] ([facility]) (test code = [place] 1538) [id number] TROPONIN [id number] 22:44:00 Test Item Value Reference Range Interpretation Comments TROPONIN I ([facility]) (test code = 0.14 ng/mL 0.00-0.03 H 397) Effective 03/02/2014: Reference Range ChangeNew: 0.00-0.03 Previous 0.00- 0.15Troponin I (TnI) levelsmust be interpreted in the context of the presenting symptoms and the clinical findings. Elevated TnI levels indicate myocardial damage, but are not specific for ischemic heart disease. Elevated TnI levels are seen in patients with other cardiac conditions (including myocarditis and congestive heart failure), and slight TnI elevations occur in patients with other conditions, including sepsis, renal failure, acidosis, acute neurological disease, and persistent tachyarrhythmia.TROPONIN [id number] 15:17:00 Test Item Value Reference Range Interpretation Comments TROPONIN I (LANCE) (test code = 0.14 ng/mL 0.00-0.03 H 397) Effective 03/02/2014: Reference Range ChangeNew: 0.00-0.03 Previous 0.00- 0.15Troponin I (TnI) levelsmust be interpreted in the context of the presenting symptoms and the clinical findings. Elevated TnI levels indicate myocardial damage, but are not specific for ischemic heart disease. Elevated TnI levels are seen in patients with other cardiac conditions (including myocarditis and congestive heart failure), and slight TnI elevations occur in patients with other conditions, including sepsis, renal failure, acidosis, acute neurological disease, and persistent tachyarrhythmia.CBC W/PLT COUNT & AUTO DIFFERENTIAL 2016-12-05 14:44:00 Test Item Value Reference Range Interpretation Comments WHITE BLOOD CELL COUNT ([facility]) 7.7 K/ L 3.5-10.5 (test code = [...] MORPHOLOGY (BEAKER) (test code = Normal 762) [id number] 07:06:00 Test Item Value Reference Range Interpretation Comments PHOSPHORUS (BEAKER) (test code = 2.5 mg/dL 2.3-4.7 604) [id number] 07:06:00 Test Item Value Reference Range Interpretation Comments MAGNESIUM (BEAKER) (test code = 2.0 mg/dL 1.6-2.6 627) COMPREHENSIVE METABOLIC [id number] 07:06:00 Test Item Value Reference Range Interpretation [...] NOT APPLICABLE FOR DIALYSIS PATIEN TS. PROTHROMBIN [id number] 06:40:00 Test Item Value Reference Range Interpretation Comments PROTIME (BEAKER) (test code = 12.5 seconds 11.7-14.7 759) INR (BEAKER) (test code = 370) 1.0 <=5.9 RECOMMENDED COUMADIN/WARFARIN INR THERAPY RANGESSTANDARD DOSE: 2.0 - 3.0 Includes: PROPHYLAXIS for venous thrombosis, systemic embolization; TREATMENT for venous thrombosis and/or pulmonary embolus.HIGH RISK: Target INR is 2.5-3.5 for patients with mechanical heart valves.URINALYSIS W/ [id number] 06:18:00 Test Item Value Reference Range Interpretation [...] 516) SOURCE(BEAKER) (test code = Urine, Voided 9629) COMPREHENSIVE METABOLIC [id number] 05:47:00 Test Item Value Reference Range Interpretation [...] (BEAKER) (test code = 413) COMPREHENSIVE METABOLIC [id number] 10:08:00 Test Item Value Reference Range Interpretation [...] 0-0 (BEAKER) (test code = 413) POCT-GLUCOSE [id number] 12:08:00 Test Item Value Reference Range Interpretation Comments POC-GLUCOSE METER 111 mg/dL 70-110 H TESTED AT [facility] 6720 ([facility]) (test code = TISHA Cazares [place] 1538) [address] POCT-GLUCOSE [id number] 08:40:00 Test Item Value Reference Range Interpretation Comments POC-GLUCOSE METER 184 mg/dL 70-110 H TESTED AT [facility] 67[address] ([facility] (test code = TISHA Cazares [place] 1538) [address] [id number] 05:57:00 Test Item Value Reference Range Interpretation Comments MAGNESIUM (BEAKER) (test code = 2.1 mg/dL 1.6-2.6 627) BASIC METABOLIC [id number] 05:57:00 Test Item Value Reference Range Interpretation [...] 0-0 (BEAKER) (test code = 413) POCT-GLUCOSE [id number] 21:18:00 Test Item Value Reference Range Interpretation Comments POC-GLUCOSE METER 118 mg/dL 70-110 H TESTED AT [place] [address] ([facility]) (test code = [facility] 1538) [address] POCT-GLUCOSE [id number] 17:33:00 Test Item Value Reference Range Interpretation Comments POC-GLUCOSE METER 102 mg/dL 70-110 TESTED AT [place] [address] ([facility]) (test code = [facility] 1538) [address] POCT-GLUCOSE [id number] 12:06:00 Test Item Value Reference Range Interpretation Comments POC-GLUCOSE METER 188 mg/dL 70-110 H TESTED AT [place] [address] ([facility]) (test code = [facility] 1538) [address] POCT-GLUCOSE [id number] 08:31:00 Test Item Value Reference Range Interpretation Comments POC-GLUCOSE METER 109 mg/dL 70-110 TESTED AT [place] [address] ([facility]) (test code = [facility] 1538) [address] [id number] 06:07:00 Test Item Value Reference Range Interpretation Comments MAGNESIUM (BEAKER) (test code = 2.0 mg/dL 1.6-2.6 627) BASIC METABOLIC [id number] 06:07:00 Test Item Value Reference Range Interpretation [...] S NOT APPLICABLE FOR DIALYSIS PATIEN TS. [id number] 05:40:00 Test Item Value Reference Range Interpretation Comments PROTIME (BEAKER) (test code = 14.1 seconds 11.7-14.7 759) INR (BEAKER) (test code = 370) 1.1 <=5.9 PARTIAL THROMBOPLASTIN TIME 46.2 seconds 22.5-36.0 H (BEAKER) (test code = 760) RECOMMENDED COUMADIN/WARFARIN INR THERAPY RANGESSTANDARD DOSE: 2.0 - 3.0 Includes: PROPHYLAXIS for venous thrombosis, systemic embolization; TREATMENT for venous thrombosis [...] 0-0 (BEAKER) (test code = 413) POCT-GLUCOSE [id number] 21:01:00 Test Item Value Reference Range Interpretation Comments POC-GLUCOSE METER 118 mg/dL 70-110 H TESTED AT [facility] 6720 (BEAKER) (test code = TISHA Cazares [place] 1538) [address] POCT-GLUCOSE [id number] 18:51:00 Test Item Value Reference Range Interpretation Comments POC-GLUCOSE METER 117 mg/dL 70-110 H TESTED AT [facility] 6720 (BEAKER) (test code = TISHA Cazares [place] 1538) [address] POCT-GLUCOSE [id number] 14:02:00 Test Item Value Reference Range Interpretation Comments POC-GLUCOSE METER 129 mg/dL 70-110 H TESTED AT [facility] 67[facility] (test code = TISHA Cazares [place] 1538) [address] [id number] 04:19:00 Test Item Value Reference Range Interpretation Comments MAGNESIUM (BEAKER) (test code = 1.8 mg/dL 1.6-2.6 627) BASIC METABOLIC [id number] 04:19:00 Test Item Value Reference Range Interpretation [...] S NOT APPLICABLE FOR DIALYSIS PATIEN TS. [id number] 04:13:00 Test Item Value Reference Range Interpretation Comments PROTIME (BEAKER) (test code = 14.9 seconds 11.7-14.7 H 759) INR (BEAKER) (test code = 370) 1.2 <=5.9 PARTIAL THROMBOPLASTIN TIME 42.4 seconds 22.5-36.0 H (BEAKER) (test code = 760) RECOMMENDED COUMADIN/WARFARIN INR THERAPY RANGESSTANDARD DOSE: 2.0 - 3.0 Includes: PROPHYLAXIS for venous thrombosis, systemic embolization; TREATMENT for venous thrombosis and/or pulmonary embolus.HIGH RISK: Target INR is 2.5-3.5 for patients with mechanical heart valves.Prior to initiating heparinPrior to initiating [id number] 04:13:00 Test Item Value Reference Range Interpretation Comments PARTIAL THROMBOPLASTIN TIME 42.4 seconds 22.5-36.0 H (BEAKER) (test code = 760) LACTIC ACID, ARTERIAL, WHOLE [id number] 04:09:00 Test Item Value Reference Range Interpretation Comments LACTATE BLOOD ARTERIAL (2) 1.1 mmol/L 0.5-2.2 (BEAKER) (test code = 2874) Effective 08/17/2015: Units/Reference Range ChangeNew: 0.5-2.2 mmol/L Previous: 5- 20 mg/dLCBC (HEMOGRAM ONLY)2016-11-30 04:03:00 Test Item Value [...] 0-0 (BEAKER) (test code = 413) CALCIUM, [id number] 03:54:00 Test Item Value Reference Range Interpretation Comments CALCIUM IONIZED (BEAKER) (test 1.14 mmol/L 1.12-1.27 code = 698) PH, BLOOD (BEAKER) (test code = 7.49 1810) BLOOD GAS, [id number] 03:54:00 Test Item Value Reference Range Interpretation [...] (test code = 1819) 36.0 % POCT-GLUCOSE [id number] 17:32:00 Test Item Value Reference Range Interpretation Comments POC-GLUCOSE METER 121 mg/dL 70-110 H TESTED AT [facility] 6720 (BEAKER) (test code = TISHA ARCE 0811) [address] PLATELET AGGREGATION: FUNCTION [id number] 14:46:00 Test Item Value Reference Range Interpretation Comments WEAK ADP 82 % 60-91 RESULT(BEAKER) (test code = 2135) PLATELET FUNCTION 60-100% indicates SCREEN INTERP (BEAKER) normal platelet (test code = 2173) function [id number] Mari [facility]helan [facility] (test code = (electronic signature) 5655) PLATELET COUNT AGG 221 K/CU MM 150-450 (BEAKER) (test code = 2656) POCT-GLUCOSE [id number] 12:58:00 Test Item Value Reference Range Interpretation Comments POC-GLUCOSE METER 129 mg/dL 70-110 H TESTED AT [facility] 67 (BEAKER) (test code = TISHA Cazares [place] 1538) [address] HEMOGLOBIN [id number] 09:09:00 Test Item Value Reference Range Interpretation Comments HEMOGLOBIN A1C (BEAKER) (test code = 5.1 % 4.3-6.1 368) BLOOD GAS, [id number] 06:57:00 Test Item Value Reference Range Interpretation [...] (test code = 1819) 40.0 % POCT-GLUCOSE [id number] 06:01:00 Test Item Value Reference Range Interpretation Comments POC-GLUCOSE METER 154 mg/dL 70-110 H TESTED AT [facility] 67 (BEAKER) (test code = ANTHONYERIK Sage [place] 1538) [address] [id number] 05:02:00 Test Item Value Reference Range Interpretation Comments MAGNESIUM (BEAKER) (test code = 2.0 mg/dL 1.6-2.6 627) BASIC METABOLIC [id number] 05:02:00 Test Item Value Reference Range Interpretation [...] S NOT APPLICABLE FOR DIALYSIS PATIEN TS. [id number] 04:56:00 Test Item Value Reference Range Interpretation Comments PROTIME (BEAKER) (test code = 13.9 seconds 11.7-14.7 759) INR (BEAKER) (test code = 370) 1.1 <=5.9 PARTIAL THROMBOPLASTIN TIME 36.5 seconds 22.5-36.0 H (BEAKER) (test code = 760) RECOMMENDED COUMADIN/WARFARIN INR THERAPY RANGESSTANDARD DOSE: 2.0 - 3.0 Includes: PROPHYLAXIS for venous thrombosis, systemic embolization; TREATMENT for venous thrombosis and/or pulmonary embolus.HIGH RISK: Target INR is 2.5-3.5 for patients with mechanical heart valves.CBC W/PLT COUNT & AUTO [id number] 04:54:00 Test Item Value Reference Range Interpretation [...] code = 2801) LACTIC ACID, ARTERIAL, WHOLE [id number] 04:39:00 Test Item Value Reference Range Interpretation Comments LACTATE BLOOD ARTERIAL (2) 1.2 mmol/L 0.5-2.2 (BEAKER) (test code = 2874) Effective 08/17/2015: Units/Reference Range ChangeNew: 0.5-2.2 mmol/L Previous: 5- 20 mg/dLCALCIUM, [id number] 04:11:00 Test Item Value Reference Range Interpretation Comments CALCIUM IONIZED (BEAKER) (test 1.17 mmol/L 1.12-1.27 code = 698) PH, BLOOD (BEAKER) (test code = 7.44 1810) BLOOD GAS, [id number] 04:11:00 Test Item Value Reference Range Interpretation [...] code = 1819) 40.0 % OXYGEN SATURATION, [id number] 04:09:00 Test Item Value Reference Range Interpretation Comments O2 SATURATION (MEASURED) (BEAKER) 80.7 % (test code = 1455) POCT-GLUCOSE [id number] 02:46:00 Test Item Value Reference Range Interpretation Comments POC-GLUCOSE METER 150 mg/dL 70-110 H TESTED AT [place] [address] ([facility] ([facility] 1538) [address] POCT-GLUCOSE [id number] 18:29:00 Test Item Value Reference Range Interpretation Comments POC-GLUCOSE METER 111 mg/dL 70-110 H TESTED AT [place] [address] ([facility]) (test code = [facility] Sage [facility] 1538) [address] [id number] 16:27:00 Test Item Value Reference Range Interpretation Comments POTASSIUM (BEAKER) (test code = 4.2 meq/L 3.5-5.1 379) [id number] 16:27:00 Test Item Value Reference Range Interpretation Comments MAGNESIUM (BEAKER) (test code = 2.1 mg/dL 1.6-2.6 627) [id number] 16:27:00 Test Item Value Reference Range Interpretation Comments SODIUM (BEAKER) (test code = 381) 141 meq/L 136-145 BASIC METABOLIC [id number] 16:27:00 Test Item Value Reference Range Interpretation [...] DIALYSIS PATIEN TS. LACTIC ACID, ARTERIAL, WHOLE [id number] 16:23:00 Test Item Value Reference Range Interpretation Comments LACTATE BLOOD 1.8 mmol/L 0.5-2.2 Specimen sligh tly ARTERIAL (2) (BEAKER) hemoly zed (test code = 2874) Effective 08/17/2015: Units/Reference Range ChangeNew: 0.5-2.2 mmol/L Previous: 5- 20 mg/dLPT/[id number] 16:18:00 Test Item Value Reference Range Interpretation Comments PROTIME (BEAKER) (test code = 14.2 seconds 11.7-14.7 759) INR (BEAKER) (test code = 370) 1.1 <=5.9 PARTIAL THROMBOPLASTIN TIME 35.0 seconds 22.5-36.0 (BEAKER) (test code = 760) RECOMMENDED COUMADIN/WARFARIN INR THERAPY RANGESSTANDARD DOSE: 2.0 - 3.0 Includes: PROPHYLAXIS for venous thrombosis, systemic embolization; TREATMENT for venous thrombosis and/or pulmonary embolus.HIGH RISK: Target INR is 2.5-3.5 for patients with mechanical heart valves.HEMOGLOBIN AND [id number] 16:10:00 Test Item Value Reference Range Interpretation [...] (BEAKER) (test code = 413) BLOOD GAS, [id number] 16:03:00 Test Item Value Reference Range Interpretation [...] -2.0-3.0 (test code = 387) PATIENT TEMPERATURE ([facility]) 35.8 C (test code = 1818) FIO2 ([facility] (test code = 1819) 60.0 % CALCIUM, [id number] 16:03:00 Test Item Value Reference Range Interpretation Comments CALCIUM IONIZED ([facility]) (test 1.18 mmol/L 1.12-1.27 code = 698) PH, BLOOD ([facility]) (test code = 7.36 1810) OXYGEN SATURATION, [id number] 16:02:00 Test Item Value Reference Range Interpretation Comments O2 SATURATION (MEASURED) ([facility]) 82.9 % (test code = 1455) [id number] 15:26:00 Test Item Value Reference Range Interpretation Comments ACTIVATED CLOTTING TIME 120 sec TEST ED AT [place] [address] ([facility]) (test code = TISHA Cazares [place] [address]) [address] [id number] 15:26:00 Test Item Value Reference Range Interpretation Comments ACTIVATED CLOTTING TIME 802 sec TEST ED AT [place] [address] ([facility]) (test code = TISHA Cazares [place] [address]) [address] [id number] 15:26:00 Test Item Value Reference Range Interpretation Comments ACTIVATED CLOTTING TIME 884 sec TEST ED AT [place] [address] ([facility]) (test code = TISHA Cazares [place] [address]) [address] [id number] 15:26:00 Test Item Value Reference Range Interpretation Comments ACTIVATED CLOTTING TIME 621 sec TEST ED AT [place] [address] ([facility]) (test code = TISHA Cazares [place] [address]) [address] THROMBOELASTOGRAPH (TEG)2016-11-28 14:00:00 Test Item Value Reference Range Interpretation Comments TEG ACTIVATED CLOTTING TIME 8.7 minutes 4.0-7.0 H ([facility]) (test code = 1407) TEG FIBRINOGEN ACTIVITY (BEAKER) 73.1 degrees 61.0-73.0 H (test code = 1408) TEG PLT. AGGREGATION (BEAKER) 70.6 MM 55.0-65.0 H (test code = 1409) TGH ACTIVATED CLOTTING TIME 8.7 minutes 4.0-7.0 H ([facility]) (test code = 1411) TGH FIBRINOGEN ACTIVITY (BEAKER) 73.0 degrees 61.0-73.0 (test code = 1412) TGH PLT. AGGREGATION (BEAKER) 69.3 MM 55.0-65.0 H (test code = 1413) [id number] 13:28:00 Test Item Value Reference Range Interpretation Comments FIBRINOGEN LEVEL (BEAKER) (test 458 mg/dl 225-434 H code = 658) [id number] 13:28:00 Test Item Value Reference Range Interpretation Comments PARTIAL THROMBOPLASTIN TIME 39.7 seconds 22.5-36.0 H (BEAKER) (test code = 760) PROTHROMBIN [id number] 13:27:00 Test Item Value Reference Range Interpretation Comments PROTIME (BEAKER) (test code = 17.4 seconds 11.7-14.7 H 759) INR (BEAKER) (test code = 370) 1.4 <=5.9 RECOMMENDED COUMADIN/WARFARIN INR THERAPY RANGESSTANDARD DOSE: 2.0 - 3.0 Includes: PROPHYLAXIS for venous thrombosis, systemic embolization; TREATMENT for venous thrombosis and/or pulmonary embolus.HIGH RISK: Target INR is 2.5-3.5 for patients with mechanical heart valves.PLATELET [id number] 13:21:00 Test Item Value Reference Range Interpretation Comments PLATELET COUNT 151 K/CU MM 150-450 Discordant re sult (BEAKER) (test code compared to previous = 756) result; clinica l correlation req uired. CALCIUM, [id number] 13:06:00 Test Item Value Reference Range Interpretation Comments CALCIUM IONIZED (BEAKER) (test 1.07 mmol/L 1.12-1.27 L code = 698) PH, BLOOD (BEAKER) (test code = 7.31 1810) SODIUM NA-STAT [id number] 13:05:00 Test Item Value Reference Range Interpretation Comments SODIUM (BEAKER) (test code = 381) 135 meq/L 135-148 POTASSIUM-STAT [id number] 13:05:00 Test Item Value Reference Range Interpretation Comments POTASSIUM (BEAKER) (test code = 4.4 meq/L 3.6-5.5 379) BLOOD GAS, [id number] 13:05:00 Test Item Value Reference Range Interpretation [...] (test code = 1819) 67.0 % GLUCOSE-STAT [id number] 13:05:00 Test Item Value Reference Range Interpretation Comments GLUCOSE RANDOM (BEAKER) (test code 145 mg/dL 70-110 H = 652) HGB/HCT (H&H) - STAT [id number] 13:05:00 Test Item Value Reference Range Interpretation Comments HEMOGLOBIN (BEAKER) (test code = 10.2 g/dL 13.0-16.8 L 410) HEMATOCRIT (BEAKER) (test code = 30.0 % 40.0-50.0 L 411) BLOOD GAS, [id number] 12:26:00 Test Item Value Reference Range Interpretation [...] (test code = 1819) 65.0 % GLUCOSE-STAT [id number] 12:26:00 Test Item Value Reference Range Interpretation Comments GLUCOSE RANDOM (BEAKER) (test code 132 mg/dL 70-110 H = 652) HGB/HCT (H&H) - STAT [id number] 12:26:00 Test Item Value Reference Range Interpretation Comments HEMOGLOBIN (BEAKER) (test code = 10.6 g/dL 13.0-16.8 L 410) HEMATOCRIT (BEAKER) (test code = 31.0 % 40.0-50.0 L 411) SODIUM NA-STAT [id number] 12:25:00 Test Item Value Reference Range Interpretation Comments SODIUM (BEAKER) (test code = 381) 136 meq/L 135-148 POTASSIUM-STAT [id number] 12:25:00 Test Item Value Reference Range Interpretation Comments POTASSIUM (BEAKER) (test code = 4.4 meq/L 3.6-5.5 379) BLOOD GAS, [id number] 12:03:00 Test Item Value Reference Range Interpretation [...] (test code = 1819) 65.0 % POTASSIUM-STAT [id number] 12:00:00 Test Item Value Reference Range Interpretation Comments POTASSIUM (BEAKER) (test code = 4.7 meq/L 3.6-5.5 379) BLOOD GAS, [id number] 12:00:00 Test Item Value Reference Range Interpretation [...] (test code = 1819) 65.0 % GLUCOSE-STAT [id number] 12:00:00 Test Item Value Reference Range Interpretation Comments GLUCOSE RANDOM (BEAKER) (test code 140 mg/dL 70-110 H = 652) HGB/HCT (H&H) - STAT [id number] 12:00:00 Test Item Value Reference Range Interpretation Comments HEMOGLOBIN (BEAKER) (test code = 10.4 g/dL 13.0-16.8 L 410) HEMATOCRIT (BEAKER) (test code = 31.0 % 40.0-50.0 L 411) SODIUM NA-STAT [id number] 12:00:00 Test Item Value Reference Range Interpretation Comments SODIUM (BEAKER) (test code = 381) 131 meq/L 135-148 L PLATELET AGGREGATION: FUNCTION [id number] 11:08:00 Test Item Value Reference Range Interpretation Comments WEAK ADP 76 % 60-91 RESULT(BEAKER) (test code = 2135) PLATELET FUNCTION 60-100% indicates SCREEN INTERP (BEAKER) normal platelet (test code = 2173) function [id number] Mari Phelan MD (BEAKER) (test code = (electronic signature) 9528) PLATELET COUNT AGG 222 K/CU MM 150-450 (BEAKER) (test code = 2656) for patients on clopidogrel in past two weeksHEMOGLOBIN [id number] 08:57:00 Test Item Value Reference Range Interpretation Comments HEMOGLOBIN A1C (BEAKER) (test code = 5.0 % 4.3-6.1 368) CBC W/PLT COUNT & AUTO [id number] 05:54:00 Test Item Value Reference Range Interpretation [...] 0-1 PERCENT (BEAKER) (test code = 2801) [id number] 05:37:00 Test Item Value Reference Range Interpretation Comments PARTIAL THROMBOPLASTIN TIME 56.5 seconds 22.5-36.0 H (BEAKER) (test code = 760) BASIC METABOLIC [id number] 05:33:00 Test Item Value Reference Range Interpretation [...] NOT APPLICABLE FOR DIALYSIS PATIEN TS. PROTHROMBIN [id number] 05:33:00 Test Item Value Reference Range Interpretation Comments PROTIME (BEAKER) (test code = 13.3 seconds 11.7-14.7 759) INR (BEAKER) (test code = 370) 1.0 <=5.9 RECOMMENDED COUMADIN/WARFARIN INR THERAPY RANGESSTANDARD DOSE: 2.0 - 3.0 Includes: PROPHYLAXIS for venous thrombosis, systemic embolization; TREATMENT for venous thrombosis and/or pulmonary embolus.HIGH RISK: Target INR is 2.5-3.5 for patients with mechanical heart valves.[id number] 19:22:00 Test Item Value Reference Range Interpretation Comments PARTIAL THROMBOPLASTIN TIME 37.4 seconds 22.5-36.0 H (BEAKER) (test code = 760) PROTHROMBIN [id number] 19:21:00 Test Item Value Reference Range Interpretation Comments PROTIME (BEAKER) (test code = 12.8 seconds 11.7-14.7 759) INR (BEAKER) (test code = 370) 1.0 <=5.9 RECOMMENDED COUMADIN/WARFARIN INR THERAPY RANGESSTANDARD DOSE: 2.0 - 3.0 Includes: PROPHYLAXIS for venous thrombosis, systemic embolization; TREATMENT for venous thrombosis and/or pulmonary embolus.HIGH RISK: Target INR is 2.5-3.5 for patients with mechanical heart valves.[id number] 11:49:00 Test Item Value Reference Range Interpretation Comments PARTIAL THROMBOPLASTIN TIME 34.7 seconds 22.5-36.0 (BEAKER) (test code = 760) Prior to initiating heparinPLATELET [id number] 11:31:00 Test Item Value Reference Range Interpretation Comments PLATELET COUNT (BEAKER) (test 199 K/CU MM 150-450 code = 756) PLATELET AGGREGATION: FUNCTION [id number] 11:12:00 Test Item Value Reference Range Interpretation Comments WEAK ADP 90 % 60-91 RESULT(BEAKER) (test code = 2135) PLATELET FUNCTION 60-100% indicates SCREEN INTERP (BEAKER) normal platelet (test code = 2173) function [id number] Mari Phelan MD (BEAKER) (test code = (electronic signature) 0837) PLATELET COUNT AGG 200 K/CU MM 150-450 (BEAKER) (test code = 2656) HEMOGLOBIN [id number] 08:38:00 Test Item Value Reference Range Interpretation Comments HEMOGLOBIN A1C (BEAKER) (test code = 5.5 % 4.3-6.1 368) TROPONIN [id number] 08:35:00 Test Item Value Reference Range Interpretation Comments TROPONIN I (BEAKER) (test code = 0.40 ng/mL 0.00-0.03 397) Effective 03/02/2014: Reference Range ChangeNew: 0.00-0.03 Previous 0.00- 0.15Troponin I (TnI) levelsmust be interpreted in the context of the presenting symptoms and the clinical findings. Elevated TnI levels indicate myocardial damage, but are not specific for ischemic heart disease. Elevated TnI levels are seen in patients with other cardiac conditions (including myocarditis and congestive heart failure), and slight TnI elevations occur in patients with other conditions, including sepsis, renal failure, acidosis, acute neurological disease, and persistent tachyarrhythmia.CREATINE [...] 0.0-6.6 Previous: 0.0-4.9CK-MB Reference Range:<6.7 Normal6.7-10.0 Borderline>10.0 Abnormal POCT-GLUCOSE [id number] 08:23:00 Test Item Value Reference Range Interpretation Comments POC-GLUCOSE METER 104 mg/dL 70-110 TESTED AT [facility] 6720 (BEAKER) (test code = TISHA HINES [place] 1538) [address] PROTHROMBIN [id number] 04:32:00 Test Item Value Reference Range Interpretation Comments PROTIME (BEAKER) (test code = 13.5 seconds 11.7-14.7 759) INR (BEAKER) (test code = 370) 1.0 <=5.9 RECOMMENDED COUMADIN/WARFARIN INR THERAPY RANGESSTANDARD DOSE: 2.0 - 3.0 Includes: PROPHYLAXIS for venous thrombosis, systemic embolization; TREATMENT for venous thrombosis and/or pulmonary embolus.HIGH RISK: Target INR is 2.5-3.5 for patients with mechanical heart valves.[id number] 02:13:00 Test Item Value Reference Range Interpretation Comments PHOSPHORUS (BEAKER) (test code = 3.9 mg/dL 2.3-4.7 604) [id number] 02:13:00 Test Item Value Reference Range Interpretation Comments MAGNESIUM (BEAKER) (test code = 2.1 mg/dL 1.6-2.6 627) BASIC METABOLIC [id number] 02:13:00 Test Item Value Reference Range Interpretation [...] PATIEN TS. CBC W/PLT COUNT & AUTO [id number] 01:44:00 Test Item Value Reference Range Interpretation [...] 0-1 PERCENT (BEAKER) (test code = 2801) [id number] 01:31:00 Test Item Value Reference Range Interpretation Comments PROTIME (BEAKER) (test code = 13.1 seconds 11.7-14.7 759) INR (BEAKER) (test code = 370) 1.0 <=5.9 PARTIAL THROMBOPLASTIN TIME 35.3 seconds 22.5-36.0 (BEAKER) (test code = 760) RECOMMENDED COUMADIN/WARFARIN INR THERAPY RANGESSTANDARD DOSE: 2.0 - 3.0 Includes: PROPHYLAXIS for venous thrombosis, systemic embolization; TREATMENT for venous thrombosis and/or pulmonary embolus.HIGH RISK: Target INR is 2.5-3.5 for patients with mechanical heart valves.TROPONIN [id number] 00:46:00 Test Item Value Reference Range Interpretation Comments TROPONIN I (BEAKER) (test code = 0.51 ng/mL 0.00-0.03 397) Effective 03/02/2014: Reference Range ChangeNew: 0.00-0.03 Previous 0.00- 0.15Troponin I (TnI) levelsmust be interpreted in the context of the presenting symptoms and the clinical findings. Elevated TnI levels indicate myocardial damage, but are not specific for ischemic heart disease. Elevated TnI levels are seen in patients with other cardiac conditions (including myocarditis and congestive heart failure), and slight TnI elevations occur in patients with other conditions, including sepsis, renal failure, acidosis, acute neurological disease, and persistent tachyarrhythmia.CREATINE [...] 0.0-6.6 Previous: 0.0-4.9CK-MB Reference Range:<6.7 Normal6.7-10.0 Borderline>10.0 Abnormal [id number] 06:58:00 Test Item Value Reference Range Interpretation Comments PHOSPHORUS (BEAKER) (test code = 3.7 mg/dL 2.3-4.7 604) [id number] 06:58:00 Test Item Value Reference Range Interpretation Comments MAGNESIUM (BEAKER) (test code = 1.9 mg/dL 1.6-2.6 627) BASIC METABOLIC [id number] 06:58:00 Test Item Value Reference Range Interpretation [...] S NOT APPLICABLE FOR DIALYSIS PATIEN TS. [id number] 06:36:00 Test Item Value Reference Range Interpretation Comments PHOSPHORUS (BEAKER) (test code = 4.1 mg/dL 2.3-4.7 604) [id number] 06:36:00 Test Item Value Reference Range Interpretation Comments MAGNESIUM (BEAKER) (test code = 2.0 mg/dL 1.6-2.6 627) BASIC METABOLIC [id number] 06:36:00 Test Item Value Reference Range Interpretation [...] S NOT APPLICABLE FOR DIALYSIS PATIEN TS. [id number] 15:50:00 Test Item Value Reference Range Interpretation Comments RPR SCREEN (BEAKER) (test code = Nonreactive Nonreactive 420) HEMOGLOBIN [id number] 10:29:00 Test Item Value Reference Range Interpretation Comments HEMOGLOBIN A1C (BEAKER) (test code = 5.4 % 4.3-6.1 368) VITAMIN B12 AND [id number] 09:21:00 Test Item Value Reference Range Interpretation Comments VITAMIN B12 (BEAKER) (test code = 335 pg/mL 213-816 774) FOLATE (BEAKER) (test code = 362) 36.6 ng/mL >=7.0 Effective 03/02/2014: Folate Reference Range ChangeNew: >=7.0 Previous: >=5.4CBC W/PLT COUNT & AUTO [id number] 08:15:00 Test Item Value Reference Range Interpretation [...] (test code = 417) 0.00TSH/FREE T4 IF [id number] 08:00:00 Test Item Value Reference Range Interpretation Comments THYROID STIMULATING HORMONE 1.39 uIU/mL 0.35-4.94 (BEAKER) (test code = 772) BASIC METABOLIC [id number] 07:26:00 Test Item Value Reference Range Interpretation [...] TO CALCU LATE m ESTIMATED GFR. LIPID [id number] 07:26:00 Test Item Value Reference Range Interpretation Comments TRIGLYCERIDES (BEAKER) 102 mg/dL Speci men slightly (test code = 540) hemolyzed CHOLESTEROL (BEAKER) 181 mg/dL Specime n slightly (test code = 631) hemolyzed HDL CHOLESTEROL (BEAKER) 30 mg/dL (test code = 976) LDL CHOLESTEROL 131 mg/dL CALCULATED (BEAKER) (test code = 633) Triglyceride Reference Range: Low Risk <150 Borderline 150-199 High Risk 200- 499 Very High Risk >=500Cholesterol Reference Range: Low Risk <200 Borderline 200-239 High Risk >240HDL Cholesterol Reference Range: Low Risk >=60 High Risk <40LDL Cholesterol Reference Range: Optimal <100 Near Optimal 100-129 Borderline 130-159 High 160-189 Very High >=190PHOSPHORUS 2016-10-07 07:25:00 Test Item Value Reference Range Interpretation Comments PHOSPHORUS (BEAKER) (test code = 3.8 mg/dL 2.3-4.7 604) [id number] 07:25:00 Test Item Value Reference Range Interpretation Comments MAGNESIUM (BEAKER) (test code = 2.0 mg/dL 1.6-2.6 627) URINALYSIS W/ [id number] 19:16:00 Test Item Value Reference Range Interpretation [...] 520) SOURCE(BEAKER) (test code = Urine, Voided 8816) BLOOD [id number] 11:00:00 Test Item Value Reference Range Interpretation Comments CULTURE (BEAKER) (test No growth in 5 days code = 1095) BLOOD [id number] 11:00:00 Test Item Value Reference Range Interpretation Comments CULTURE (BEAKER) (test No growth in 5 days code = 1095) BASIC METABOLIC [id number] 05:33:00 Test Item Value Reference Range Interpretation [...] ESTIMATED GFR. CBC W/PLT COUNT & AUTO [id number] 05:04:00 Test Item Value Reference Range Interpretation [...] 0.00-0.20 (test code = 417) 0.00VANCOMYCIN LEVEL, [id number] 21:36:00 Test Item Value Reference Range Interpretation Comments VANCOMYCIN TROUGH (BEAKER) (test 9.5 ug/mL 10.0-20.0 L code = 522) Please draw prior to 4th vancomycin doseVITAMIN B12 AND [id number] 04:33:00 Test Item Value Reference Range Interpretation Comments VITAMIN B12 (BEAKER) (test code = 599 pg/mL 213-816 774) FOLATE (BEAKER) (test code = 362) 7.7 ng/mL >=7.0 Effective 03/02/2014: Folate Reference Range ChangeNew: >=7.0 Previous: >=5.4HEPATIC FUNCTION [id number] 03:58:00 Test Item Value Reference Range Interpretation [...] = 12 U/L 6-55 347) BASIC METABOLIC [id number] 03:58:00 Test Item Value Reference Range Interpretation [...] ESTIMATED GFR. CBC W/PLT COUNT & AUTO [id number] 03:45:00 Test Item Value Reference Range Interpretation [...] K/ L 0.00-0.20 (test code = 417) 0.45BUHO3439-21-55 03:18:00 Test Item Value Reference Range Interpretation Comments PARTIAL THROMBOPLASTIN TIME 42.6 seconds 22.5-36.0 H (BEAKER) (test code = 760) PROTHROMBIN TIME/[id number] 03:17:00 Test Item Value Reference Range Interpretation Comments PROTIME (BEAKER) (test code = 13.0 seconds 11.7-14.7 759) INR (BEAKER) (test code = 370) 1.0 <=5.9 RECOMMENDED COUMADIN/WARFARIN INR THERAPY RANGESSTANDARD DOSE: 2.0 - 3.0 Includes: PROPHYLAXIS for venous thrombosis, systemic embolization; TREATMENT for venous thrombosis and/or pulmonary embolus.HIGH RISK: Target INR is 2.5-3.5 for patients with mechanical heart valves.BASIC METABOLIC [id number] 02:48:00 Test Item Value Reference Range Interpretation [...] ESTIMATED GFR. CBC W/PLT COUNT & AUTO [id number] 02:47:00 Test Item Value Reference Range Interpretation [...] K/ L 0.00-0.20 (test code = 417) 0.35UVOHKLFRW1379-04-59 09:18:00 Test Item Value Reference Range Interpretation Comments AGAP (test code = AGAP) 14.0 10.0-20.0 [facility]JilatyrRWSQEQHZI1482-12-11 09:18:00 Test Item Value Reference Range Interpretation Comments Chloride Lvl (test code = Chloride Lvl) 110 95-109 H [facility]OiujvllOTZRNCRGS0703-09-70 09:18:00 Test Item Value Reference Range Interpretation Comments CO2 (test code = CO2) 26 24-32 N [facility] HospitalFebrookNSKNPDMNJ6631-05-57 09:18:00 Test Item Value Reference Range Interpretation Comments Calcium Lvl (test code = Calcium Lvl) 9.1 8.5-10.5 N [facility]FrshzuvFVFTFUYOW3517-39-57 09:18:00 Test Item Value Reference Range Interpretation Comments Sodium Lvl (test code = Sodium Lvl) 146 135-145 H [facility] HospitalMjjafcwEGVVYHUKQ7056-17-32 09:18:00 Test Item Value Reference Range Interpretation Comments Potassium Lvl (test code = Potassium 4.0 3.5-5.1 N Lvl) [facility] HospitalHaqxregVTUTJXOLC5722-08-10 09:18:00 Test Item Value Reference Range Interpretation Comments BUN (test code = BUN) 11 7-22 N [facility]RasqiolRLCITGWQM0988-62-86 09:18:00 Test Item Value Reference Range Interpretation Comments Glucose Lvl (test code = Glucose Lvl) 107 70-99 H [facility] HospitalIfdastgMDKCAMZIG1274-37-87 09:18:00 Test Item Value Reference Range Interpretation Comments Creatinine Lvl (test code = Creatinine 0.7 0.5-1.4 N Lvl) [facility] CenterZdxtcsfMWKNRLMZLR9945-78-71 09:18:00 Test Item Value Reference Range Interpretation Comments RDW (test code = RDW) 13.6 11.5-14.5 N [facility] CenterGpgtaejNCVRMXOXUU1359-62-59 09:18:00 Test Item Value Reference Range Interpretation Comments MCV (test code = MCV) 98.9 80.0-94.0 H [facility] CenterBvifixoUFTRKNNOZB2355-00-44 09:18:00 Test Item Value Reference Range Interpretation Comments Hct (test code = Hct) 38.8 42.0-54.0 L [facility] CenterExcboekICSGUXKGDH1366-19-16 09:18:00 Test Item Value Reference Range Interpretation Comments MPV (test code = MPV) 9.7 7.4-10.4 N [facility] CenterVmtwwvyFRICFCETNZ3439-25-03 09:18:00 Test Item Value Reference Range Interpretation Comments Platelet (test code = Platelet) 188 133-450 N [facility] CenterKvqgryvDCAUAMMXGL9566-49-53 09:18:00 Test Item Value Reference Range Interpretation Comments MCHC (test code = MCHC) 34.5 32.0-36.0 N [facility] CenterKirrrehNBVBKPHTBM9421-78-91 09:18:00 Test Item Value Reference Range Interpretation Comments MCH (test code = MCH) 34.2 pg 27.0-31.0 H [facility] CenterEmwcbmyQOFOLQPPPB5113-35-46 09:18:00 Test Item Value Reference Range Interpretation Comments Hgb (test code = Hgb) 13.4 14.0-18.0 L [facility] CenterLefcicoOQKGMCMJQM4519-65-13 09:18:00 Test Item Value Reference Range Interpretation Comments WBC (test code = WBC) 5.8 3.7-10.4 N [facility] CenterRmptzxvMZCBMUVXOK5152-92-16 09:18:00 Test Item Value Reference Range Interpretation Comments RBC (test code = RBC) 3.92 4.70-6.10 L [facility] CenterNlbyfkdRJMZNYLOJW9583-65-95 09:18:00 Test Item Value Reference Range Interpretation Comments Monocytes # (test code 0.8 See_Comment N [Aut omated message] The = Monocytes #) system which generated this result tra nsmitted reference range : <=0.8. The reference r jessika was not used to int erpret this result as normal/abnormal . [facility] CenterHsgrbnsURZXKICOKC8477-20-61 09:18:00 Test Item Value Reference Range Interpretation Comments Lymphocytes # (test code = Lymphocytes 2.4 1.0-5.5 N #) [facility] CenterIpqyxlvCUOPJBZWFR3769-08-98 09:18:00 Test Item Value Reference Range Interpretation Comments Basophils # (test code 0.0 See_Comment N [Aut omated message] The = Basophils #) system which generated this result tra nsmitted reference range : <=0.2. The reference r jessika was not used to int erpret this result as normal/abnormal . [facility] CenterWgzjxjkYFEEPTNDTN7659-75-59 09:18:00 Test Item Value Reference Range Interpretation Comments Eosinophils # (test code 0.2 See_Comment N [A utomated message] The = Eosinophils #) system whic h generated this result tra nsmitted reference range : <=0.5. The reference r jessika was not used to int erpret this result as normal/abnormal . [facility] CenterXjdrtftFCVHRNEICB3211-91-49 09:18:00 Test Item Value Reference Range Interpretation Comments Lymphocytes (test code = Lymphocytes) 41.3 20.0-40.0 H [facility] CenterYyrfnynGLHOCZHLFS6731-09-10 09:18:00 Test Item Value Reference Range Interpretation Comments Segs (test code = Segs) 41.0 45.0-75.0 L [facility] CenterJdxcnklVYBEIARDWQ1067-83-70 09:18:00 Test Item Value Reference Range Interpretation Comments Eosinophils (test code = 3.9 See_Comment N [A utomated message] The Eosinophils) system which ge nerated this result tra nsmitted reference range : <=4.0. The reference r jessika was not used to int erpret this result as normal/abnormal . [facility] CenterOrysnaiLQFFFSIUTJ2167-44-54 09:18:00 Test Item Value Reference Range Interpretation Comments Segs-Bands # (test code = Segs-Bands #) 2.4 1.5-8.1 N [facility] CenterQjkmsgfSRKWWYLHEL3065-84-34 09:18:00 Test Item Value Reference Range Interpretation Comments Basophils (test code = 0.3 See_Comment N [Aut omated message] The Basophils) system which ge nerated this result tra nsmitted reference range : <=1.0. The reference r jessika was not used to int erpret this result as normal/abnormal . [facility] CenterNzcsjilIKXIGDWCIG8485-02-21 09:18:00 Test Item Value Reference Range Interpretation Comments Monocytes (test code = Monocytes) 13.5 2.0-12.0 H [facility] GLUCOSE AVAAPSQ0039-26-84 21:40:00 Test Item Value Reference Range Interpretation Comments Comment1 (test code = Comment1) Notify RN/MD [facility] GLUCOSE DOBCKRQ5419-54-33 21:40:00 Test Item Value Reference Range Interpretation Comments Gluc POC Lifscn (test code = Gluc POC 121 70-99 H [facility]) [facility]YibuftcTONLWBJGV5904-61-35 10:14:00 Test Item Value Reference Range Interpretation Comments CO2 (test code = CO2) 30 24-32 N [facility] HospitalAyjanknBVDAPCPLB8489-29-13 10:14:00 Test Item Value Reference Range Interpretation Comments Calcium Lvl (test code = Calcium Lvl) 9.0 8.5-10.5 N [facility] HospitalXjrclayELSVWTHUY1995-10-40 10:14:00 Test Item Value Reference Range Interpretation Comments Glucose Lvl (test code = Glucose Lvl) 86 70-99 N [facility] HospitalWunqjeuRVTPYNJXT8271-68-42 10:14:00 Test Item Value Reference Range Interpretation Comments Potassium Lvl (test code = Potassium 4.4 3.5-5.1 N Lvl) [facility] HospitalNcgxivfRZCPMLNZR8557-84-78 10:14:00 Test Item Value Reference Range Interpretation Comments Chloride Lvl (test code = Chloride Lvl) 107 95-109 N [facility] HospitalHdxyuwwFXWUCADFL2001-91-50 10:14:00 Test Item Value Reference Range Interpretation Comments BUN (test code = BUN) 13 7-22 N [facility] HospitalGozcvolGKVTEIHJB3009-60-04 10:14:00 Test Item Value Reference Range Interpretation Comments Creatinine Lvl (test code = Creatinine 0.7 0.5-1.4 N Lvl) [facility] HospitalUliboeyCZHDGCWAS3198-87-07 10:14:00 Test Item Value Reference Range Interpretation Comments Sodium Lvl (test code = Sodium Lvl) 144 135-145 N [facility] HospitalYsqvurnPGMOVUXLM3873-13-68 10:14:00 Test Item Value Reference Range Interpretation Comments AGAP (test code = AGAP) 11.4 10.0-20.0 N [facility] CenterMwbwhgzHEYGQKHIOR4036-60-18 10:14:00 Test Item Value Reference Range Interpretation Comments Basophils (test code = 0.5 See_Comment N [Aut omated message] The Basophils) system which ge nerated this result tra nsmitted reference range : <=1.0. The reference r jessika was not used to int erpret this result as normal/abnormal . [facility] CenterSpcznzjRGCZYPKQEY9262-48-60 10:14:00 Test Item Value Reference Range Interpretation Comments Eosinophils (test code = 3.1 See_Comment N [A utomated message] The Eosinophils) system which ge nerated this result tra nsmitted reference range : <=4.0. The reference r jessika was not used to int erpret this result as normal/abnormal . [facility] CenterNqpibieZRQMVWYTEU3225-73-92 10:14:00 Test Item Value Reference Range Interpretation Comments Segs-Bands # (test code = Segs-Bands #) 3.1 1.5-8.1 N [facility] CenterUeggexcBSSBUMUIJJ6578-69-12 10:14:00 Test Item Value Reference Range Interpretation Comments Lymphocytes # (test code = Lymphocytes 2.3 1.0-5.5 N #) [facility] CenterCvkqgvdWSNTDSOCAF4777-67-10 10:14:00 Test Item Value Reference Range Interpretation Comments Monocytes # (test code 0.9 See_Comment H [Aut omated message] The = Monocytes #) system which generated this result tra nsmitted reference range : <=0.8. The reference r jessika was not used to int erpret this result as normal/abnormal . [facility] CenterCdhgaqnGFGQLEPICO7384-09-73 10:14:00 Test Item Value Reference Range Interpretation Comments Segs (test code = Segs) 48.3 45.0-75.0 N [facility] CenterVowoiejVWBNOTVQSO1333-43-36 10:14:00 Test Item Value Reference Range Interpretation Comments Lymphocytes (test code = Lymphocytes) 34.9 20.0-40.0 N [facility] CenterJxdeztbVEQFHDZWMO6069-84-53 10:14:00 Test Item Value Reference Range Interpretation Comments Macrocyte (test code = 1+ *ABN*(09/25/2011 A Macrocyte) 05:14:00) [facility] CenterCytynpfHHJFLHIBIW5399-29-81 10:14:00 Test Item Value Reference Range Interpretation Comments Eosinophils # (test code 0.2 See_Comment N [A utomated message] The = Eosinophils #) system whic h generated this result tra nsmitted reference range : <=0.5. The reference r jessika was not used to int erpret this result as normal/abnormal . [facility] CenterPkypexdMZPDIWATMU8720-18-29 10:14:00 Test Item Value Reference Range Interpretation Comments Monocytes (test code = Monocytes) 13.2 2.0-12.0 H [facility] CenterLuuaxsePXBLLNQYTS2457-90-76 10:14:00 Test Item Value Reference Range Interpretation Comments Basophils # (test code 0.0 See_Comment N [Aut omated message] The = Basophils #) system which generated this result tra nsmitted reference range : <=0.2. The reference r jessika was not used to int erpret this result as normal/abnormal . [facility] CenterKpcjwaeSDNEVZPXFU5977-04-45 10:14:00 Test Item Value Reference Range Interpretation Comments MPV (test code = MPV) 9.1 7.4-10.4 N [facility] CenterTzjwlbiVIMXMKEVCN5067-76-31 10:14:00 Test Item Value Reference Range Interpretation Comments Platelet (test code = Platelet) 183 133-450 N [facility] CenterYfppisnWPOOGQGNDV8846-27-44 10:14:00 Test Item Value Reference Range Interpretation Comments RDW (test code = RDW) 14.3 11.5-14.5 N [facility] CenterHlfwealFHWIRJYOWB3434-14-24 10:14:00 Test Item Value Reference Range Interpretation Comments MCHC (test code = MCHC) 34.1 32.0-36.0 N [facility] CenterIzwkhlbCQVNJRCXVS8423-95-80 10:14:00 Test Item Value Reference Range Interpretation Comments Hct (test code = Hct) 42.1 42.0-54.0 N [facility] CenterAntaqcoVEGJNBNOJP1508-80-73 10:14:00 Test Item Value Reference Range Interpretation Comments Hgb (test code = Hgb) 14.4 14.0-18.0 N [facility] CenterAcvvjilDZTPSISVEF4969-41-98 10:14:00 Test Item Value Reference Range Interpretation Comments WBC (test code = WBC) 6.4 3.7-10.4 N [facility] CenterPqyvnwiDKVKYWHZDV0433-36-75 10:14:00 Test Item Value Reference Range Interpretation Comments MCV (test code = MCV) 99.3 80.0-94.0 H [facility] CenterKvsisrbUGJGUPNHUL4703-70-16 10:14:00 Test Item Value Reference Range Interpretation Comments RBC (test code = RBC) 4.24 4.70-6.10 L [facility] CenterTnktpdnIWDFOPOBOE1605-65-93 10:14:00 Test Item Value Reference Range Interpretation Comments MCH (test code = MCH) 33.9 pg 27.0-31.0 H [facility] HospitalTlayqalJXLYUMIJH6413-01-46 09:04:00 Test Item Value Reference Range Interpretation Comments CO2 (test code = CO2) 25 24-32 N [facility] HospitalRmketgwGCCKRQKPJ5972-56-06 09:04:00 Test Item Value Reference Range Interpretation Comments Calcium Lvl (test code = Calcium Lvl) 9.0 8.5-10.5 N [facility]PrbijqfVJVCEJTQT5923-16-10 09:04:00 Test Item Value Reference Range Interpretation Comments AGAP (test code = AGAP) 13.1 10.0-20.0 N [facility] CenterEmcxtirWHHHZGEWAJ8344-06-40 09:04:00 Test Item Value Reference Range Interpretation Comments Macrocyte (test code = 1+ *ABN*(09/18/2011 A Macrocyte) 04:04:00) [facility] CenterVxmrnknEPIRDCVUCM0535-00-86 09:04:00 Test Item Value Reference Range Interpretation Comments Monocytes # (test code 0.9 See_Comment H [Aut omated message] The = Monocytes #) system which generated this result tra nsmitted reference range : <=0.8. The reference r jessika was not used to int erpret this result as normal/abnormal . [facility] CenterZnyzioyXOUOTGZYWA0016-85-71 09:04:00 Test Item Value Reference Range Interpretation Comments Lymphocytes # (test code = Lymphocytes 2.1 1.0-5.5 N #) [facility] CenterFpcgluyKRDEOENFVU7385-31-99 09:04:00 Test Item Value Reference Range Interpretation Comments Segs (test code = Segs) 54.6 45.0-75.0 N [facility] CenterUctidodBTWVZREHLM4874-28-25 09:04:00 Test Item Value Reference Range Interpretation Comments Eosinophils # (test code 0.2 See_Comment N [A utomated message] The = Eosinophils #) system whic h generated this result tra nsmitted reference range : <=0.5. The reference r jessika was not used to int erpret this result as normal/abnormal . [facility] CenterWaawsngIJFWQHQWMD2145-29-51 09:04:00 Test Item Value Reference Range Interpretation Comments Eosinophils (test code = 2.3 See_Comment N [A utomated message] The Eosinophils) system which ge nerated this result tra nsmitted reference range : <=4.0. The reference r jessika was not used to int erpret this result as normal/abnormal . [facility] CenterCqdyzefEIZDXUBTFI1607-47-06 09:04:00 Test Item Value Reference Range Interpretation Comments Monocytes (test code = Monocytes) 12.9 2.0-12.0 H [facility] CenterMnpytbdNHUZJOXGZI8987-57-94 09:04:00 Test Item Value Reference Range Interpretation Comments Lymphocytes (test code = Lymphocytes) 29.9 20.0-40.0 N [facility] CenterPjxaierONEGPSLMBD4168-49-99 09:04:00 Test Item Value Reference Range Interpretation Comments Basophils (test code = 0.3 See_Comment N [Aut omated message] The Basophils) system which ge nerated this result tra nsmitted reference range : <=1.0. The reference r jessika was not used to int erpret this result as normal/abnormal . [facility] CenterPtmownmXDHYELVFHN2081-04-51 09:04:00 Test Item Value Reference Range Interpretation Comments Basophils # (test code 0.0 See_Comment N [Aut omated message] The = Basophils #) system which generated this result tra nsmitted reference range : <=0.2. The reference r jessika was not used to int erpret this result as normal/abnormal . [facility] CenterFzsnzehONXPTYAEQO2365-01-66 09:04:00 Test Item Value Reference Range Interpretation Comments Segs-Bands # (test code = Segs-Bands #) 3.8 1.5-8.1 N [facility] CenterSgtjoylZKUBYLYQCX4506-14-04 09:04:00 Test Item Value Reference Range Interpretation Comments Hct (test code = Hct) 43.5 42.0-54.0 N [facility] CenterXacufstMKIMBUCCJW0079-64-54 09:04:00 Test Item Value Reference Range Interpretation Comments MCV (test code = MCV) 99.4 80.0-94.0 H [facility] CenterZexfedmLIQTGMVXQY0995-77-06 09:04:00 Test Item Value Reference Range Interpretation Comments Hgb (test code = Hgb) 14.8 14.0-18.0 N [facility] CenterCxbypvnHOGQSBNMKB2131-13-19 09:04:00 Test Item Value Reference Range Interpretation Comments RBC (test code = RBC) 4.37 4.70-6.10 L [facility] CenterQdjlqvbVGYVQUKGOD8507-82-47 09:04:00 Test Item Value Reference Range Interpretation Comments WBC (test code = WBC) 6.9 3.7-10.4 N [facility] CenterOnbvqutDZGWAJOFAD7674-25-20 09:04:00 Test Item Value Reference Range Interpretation Comments Platelet (test code = Platelet) 178 133-450 N [facility] CenterWpkzmvwXATFSPATSP5569-07-97 09:04:00 Test Item Value Reference Range Interpretation Comments MCHC (test code = MCHC) 34.2 32.0-36.0 N [facility] CenterBjepdxvJZLGWXAKDQ8285-49-17 09:04:00 Test Item Value Reference Range Interpretation Comments MPV (test code = MPV) 9.1 7.4-10.4 N [facility] CenterBrfzeibQHLWIVTKMW1274-41-12 09:04:00 Test Item Value Reference Range Interpretation Comments RDW (test code = RDW) 13.9 11.5-14.5 N [facility] CenterLyeqfcaLAWNBYLZJF0465-15-51 09:04:00 Test Item Value Reference Range Interpretation Comments MCH (test code = MCH) 33.9 pg 27.0-31.0 H [facility]JfrvgnjUBXLLRFZK5598-51-86 09:04:00 Test Item Value Reference Range Interpretation Comments Glucose Lvl (test code = Glucose Lvl) 95 70-99 N [facility] HospitalQtkugsyZLZNNBJDN6714-54-12 09:04:00 Test Item Value Reference Range Interpretation Comments BUN (test code = BUN) 9 7-22 N [facility] HospitalAjyntsyQTMSJKEQI5872-52-76 09:04:00 Test Item Value Reference Range Interpretation Comments Creatinine Lvl (test code = Creatinine 0.6 0.5-1.4 N Lvl) [facility] HospitalDddrklaKNQBVPSWH9444-53-63 09:04:00 Test Item Value Reference Range Interpretation Comments Sodium Lvl (test code = Sodium Lvl) 141 135-145 N [facility] HospitalPlwjnjoUNMAVIIOV9629-19-10 09:04:00 Test Item Value Reference Range Interpretation Comments Potassium Lvl (test code = Potassium 4.1 3.5-5.1 N Lvl) [facility]WvpsfiwTMZEMYFGZ8038-86-53 09:04:00 Test Item Value Reference Range Interpretation Comments Chloride Lvl (test code = Chloride Lvl) 107 95-109 N [facility]FnixpvzRfoiksdlntuh4103-53-53 14:00:00 Test Item Value Reference Range Interpretation Comments Culture: Urine (test code = Culture: Urine) [facility] HospitalSufmyshZZVYLMYKXW4720-88-21 13:25:00 Test Item Value Reference Range Interpretation Comments UA Urobilinogen (test code *NA*(09/16/2011 0.1-1.0 = UA Urobilinogen) 08:25:00) [facility] HospitalUiqxvbvAGNHZVFWNJ7862-15-72 13:25:00 Test Item Value Reference Range Interpretation Comments UA WBC (test code = no gt See_Comment N [Automa lorie message] The UA WBC) system which ge nerated this result transmit lorie reference range : <=5. The reference range was not used to interpr et this result as asher l/abnormal. [facility] HospitalYddveqcWDKPHMCMPF7931-43-63 13:25:00 Test Item Value Reference Range Interpretation Comments UA RBC (test code = 1 See_Comment N [Automa lorie message] The UA RBC) system which ge nerated this result transmit lorie reference range : <=2. The reference range was not used to interpr et this result as asher l/abnormal. [facility]WbywoedTKZIVNURJG1415-36-32 13:25:00 Test Item Value Reference Range Interpretation Comments UA Mucus (test code = Few /LPF UA Mucus) *NA*(09/16/2011 08:25:00) [id number] 13:25:00 Test Item Value Reference Range Interpretation Comments UA Ketones (test code Negative mg/dL = UA Ketones) *NA*(09/16/2011 08:25:00) [facility]rmmotNOGIBLUTKN5668-78-53 13:25:00 Test Item Value Reference Range Interpretation Comments UA Bili (test code = Negative *NA*(09/16/2011 UA Bili) 08:25:00) [facility]PnsumeyDLYUPJBHUE1629-11-53 13:25:00 Test Item Value Reference Range Interpretation Comments UA Blood (test code = Negative (09/16/2011 N UA Blood) 08:25:00) [facility] HospitalLypronbJXWPENQNOK9337-03-53 13:25:00 Test Item Value Reference Range Interpretation Comments UA Nitrite (test code Negative (09/16/2011 N = UA Nitrite) 08:25:00) [facility] HospitalLimznyeSPYBVUNCMH5775-23-15 13:25:00 Test Item Value Reference Range Interpretation Comments UA Leuk Est (test Negative (09/16/2011 N code = UA Leuk Est) 08:25:00) [facility] HospitalSciqhgmFFAPBJBSUH9138-97-20 13:25:00 Test Item Value Reference Range Interpretation Comments UA Sq Epi (test code Occasional /LPF = UA Sq Epi) *NA*(09/16/2011 08:25:00) [facility] HospitalGfgvirxHENYJAZEFK6744-12-60 13:25:00 Test Item Value Reference Range Interpretation Comments UA Glucose (test code Negative mg/dL = UA Glucose) *NA*(09/16/2011 08:25:00) [facility] HospitalSxmjjikRQCQBEYJQP5301-31-01 13:25:00 Test Item Value Reference Range Interpretation Comments UA Protein (test code Negative mg/dL N = UA Protein) (09/16/2011 08:25:00) [facility] HospitalPtztozaGFUQZMLVXC0784-00-03 13:25:00 Test Item Value Reference Range Interpretation Comments UA Color (test code = Yellow *NA*(09/16/2011 UA Color) 08:25:00) [facility] HospitalBiqzuvjJMCSPZGVPR0212-07-22 13:25:00 Test Item Value Reference Range Interpretation Comments UA pH (test code = UA pH) 5.5 5.0-8.0 N [facility] HospitalNtrexssVHVKAOUPVB4685-70-80 13:25:00 Test Item Value Reference Range Interpretation Comments UA Spec Grav (test code = UA Spec Grav) 1.017 N [facility] HospitalSkoeqdhMFDKYBPQCA1630-86-18 13:25:00 Test Item Value Reference Range Interpretation Comments UA Turbidity (test code = Clear (09/16/2011 N UA Turbidity) 08:25:00) [facility] HospitalEtzjvmgLVFDWVILCD1728-35-62 08:42:00 Test Item Value Reference Range Interpretation Comments UA Mucus (test code = Few /LPF UA Mucus) *NA*(09/15/2011 03:42:00) [facility]VzgfsvdRFFOVETUXD4844-71-95 08:42:00 Test Item Value Reference Range Interpretation Comments UA RBC (test code = 1 See_Comment N [Automa lorie message] The UA RBC) system which ge nerated this result transmit lorie reference range : <=2. The reference range was not used to interpr et this result as asher l/abnormal. [facility] HospitalFdecjjsKQACREZSUO1943-18-38 08:42:00 Test Item Value Reference Range Interpretation Comments UA Blood (test code = Negative (09/15/2011 N UA Blood) 03:42:00) [facility] HospitalZutzbzyZZHIDSAZUN5460-80-31 08:42:00 Test Item Value Reference Range Interpretation Comments UA Nitrite (test code Negative (09/15/2011 N = UA Nitrite) 03:42:00) [facility] HospitalKqhnnvoTBRLXFQOEY8226-60-64 08:42:00 Test Item Value Reference Range Interpretation Comments UA Leuk Est (test Negative (09/15/2011 N code = UA Leuk Est) 03:42:00) [facility]PfebadjEVAYPJIIPD7173-94-30 08:42:00 Test Item Value Reference Range Interpretation Comments UA pH (test code = UA pH) 5.5 5.0-8.0 N [facility] HospitalPipwjjwOXYADSLEEH3340-59-52 08:42:00 Test Item Value Reference Range Interpretation Comments UA Protein (test code Negative mg/dL N = UA Protein) (09/15/2011 03:42:00) [facility] HospitalEkgghjvTFYMCJKMCI6644-47-18 08:42:00 Test Item Value Reference Range Interpretation Comments UA Glucose (test code Negative mg/dL = UA Glucose) *NA*(09/15/2011 03:42:00) [facility] HospitalIledknaXQGKIMWFLQ5817-10-41 08:42:00 Test Item Value Reference Range Interpretation Comments UA Ketones (test code Negative mg/dL = UA Ketones) *NA*(09/15/2011 03:42:00) [facility] HospitalTgkfjefTLUVYQJUCX2618-75-35 08:42:00 Test Item Value Reference Range Interpretation Comments UA Bili (test code = Negative *NA*(09/15/2011 UA Bili) 03:42:00) [facility] HospitalBcqinqmTOKWJKBFJE4895-56-74 08:42:00 Test Item Value Reference Range Interpretation Comments UA Color (test code = Yellow *NA*(09/15/2011 UA Color) 03:42:00) [facility]inteHwraesmYHBRJTKPDD8546-39-04 08:42:00 Test Item Value Reference Range Interpretation Comments UA Turbidity (test code Slight A = UA Turbidity) *ABN*(09/15/2011 03:42:00) [facility] HospitalEztkeooYRMGZOCISS2524-61-79 08:42:00 Test Item Value Reference Range Interpretation Comments UA Spec Grav (test code = UA Spec Grav) 1.012 N [facility]intePsoiydbLOTPBDNNLB7143-10-36 08:42:00 Test Item Value Reference Range Interpretation Comments UA Sq Epi (test code = UA Sq Epi) None Seen [facility] HospitalLrcztajRSWENKNRLJ3771-71-15 08:42:00 Test Item Value Reference Range Interpretation Comments UA Urobilinogen (test code *NA*(09/15/2011 0.1-1.0 = UA Urobilinogen) 03:42:00) [facility] PointeXgpwagsYuzmgivtqgyq2976-78-47 08:42:00 Test Item Value Reference Range Interpretation Comments Culture: Urine (test code = Culture: Urine) [facility]hc[facility]FIZGZXOT2915-81-89 08:40:00 Test Item Value Reference Range Interpretation Comments TSH (test code = TSH) 3.390 0.360-3.740 N [facility] HospitalClfleatJFAKPQDHU0200-73-46 08:40:00 Test Item Value Reference Range Interpretation Comments T4 (test code = T4) 8.5 4.7-13.3 N [facility] HospitalOizcoeaDWOTMGUKW9300-61-22 08:40:00 Test Item Value Reference Range Interpretation Comments T3 Uptake (test code = T3 Uptake) 33 31-39 N [facility] HospitalFvxraarSKPJVSSUW3845-65-24 08:40:00 Test Item Value Reference Range Interpretation Comments TSH (test code = TSH) 3.390 0.360-3.740 N [facility] HospitalQknzvumKSQAOYPLX3905-04-04 08:40:00 Test Item Value Reference Range Interpretation Comments Total Protein (test code = Total 6.4 6.4-8.4 N Protein) [facility] HospitalCtqlohiPLOKSGMYN8151-51-30 08:40:00 Test Item Value Reference Range Interpretation Comments AST (test code = AST) 14 See_Comment N [Auto mated message] The system which ge nerated this result transmit lorie reference range : <=37. The reference range was not used to interpr et this result as asher l/abnormal. [facility]DzqreapNUDNUECKT9962-90-64 08:40:00 Test Item Value Reference Range Interpretation Comments Bili Total (test code = Bili Total) 0.4 0.2-1.3 N [facility] CenterJgehwkvGVMAKAQMP5410-23-75 08:40:00 Test Item Value Reference Range Interpretation Comments ALT (test code = ALT) 24 See_Comment N [Auto mated message] The system which ge nerated this result transmit lorie reference range : <=65. The reference range was not used to interpr et this result as asher l/abnormal. [facility] CenterOibqczmNRHNNJHTS9383-38-07 08:40:00 Test Item Value Reference Range Interpretation Comments Alk Phos (test code = Alk Phos) 81 39-136 N [facility] CenterVzrlexlXSZIPPIUA9528-69-44 08:40:00 Test Item Value Reference Range Interpretation Comments Albumin Lvl (test code = Albumin Lvl) 3.3 3.5-5.0 L [facility] CenterChrmlrxXKKGOWMAV1554-21-48 08:40:00 Test Item Value Reference Range Interpretation Comments A/G Ratio (test code = A/G Ratio) 1.1 0.7-1.6 N [facility] CenterIxhdoosEUODRWHAY4498-57-69 08:40:00 Test Item Value Reference Range Interpretation Comments B/C Ratio (test code = B/C Ratio) 14 6-25 N [facility] CenterHjnsgogGEFWNTHTO9457-61-57 08:40:00 Test Item Value Reference Range Interpretation Comments Globulin (test code = Globulin) 3.1 2.0-4.0 N [facility] CenterAywequcZCZJPXPUU7409-02-85 08:40:00 Test Item Value Reference Range Interpretation Comments FTI (test code = FTI) 2.8 [facility] CenterPoslanzKDUVOKMXMS6995-80-51 08:40:00 Test Item Value Reference Range Interpretation Comments PTT (test code = PTT) 32.4 s 22.9-35.8 N [facility] CenterShopnphPEPBROMAYW2761-29-66 08:40:00 Test Item Value Reference Range Interpretation Comments PT (test code = PT) 13.0 s 12.0-14.7 N [facility] CenterYapjtyhHQPRHMHUHH9457-91-80 08:40:00 Test Item Value Reference Range Interpretation Comments INR (test code = INR) 0.98 0.85-1.17 [facility]
[2022-05-18 19:29] LABS: Hematocrit 43.3 % (39.6-49.0); MCV 93.7 fL (80-100); Protime INR 1.12; RBC Red Blood Cell Count 4.62 M/uL (4.33-5.43)
[2022-05-18 19:30] LABS: Absolute Lymphocytes (CBC) 2.2 K/uL (0.7-4.9); Lymphocytes % 34.5 % (15.3-44.8); MPV 8.5 fL (7.6-11.3)
[2022-05-18 19:39] LABS: AST/SGOT 9 U/L (15-37); Albumin 3.2 g/dL (3.4-5.0); Alkaline Phosphatase 61 U/L (45-117); BUN Blood Urea Nitrogen 17 mg/dL (7-18); Bicarbonate 25 mmol/L (21-32); Bilirubin Total 0.3 mg/dL (0.2-1.0); Glomerular Filtration Rate 96 ml/min (=/>90); Glucose Level 109 mg/dL (74-106); Magnesium 2.2 mg/dL (1.6-2.4); NT PRO-BNP 132 pg/mL (<125); Potassium 3.7 mmol/L (3.5-5.1); Protein, Total 7.5 g/dL (6.4-8.2); Sodium Level 138 mmol/L (136-145); Troponin High Sensitivity 15.3 pg/mL (<58.9)
[2022-05-18 19:42] LABS: ALT/SGPT < 10 U/L (16-61); Bilirubin Direct < 0.1 mg/dL (0-0.2)
[2022-05-18] MEDS ORDERED: ACETAMINOPHEN 325 MG TABLET ONE (19:43)
[2022-05-18 20:09] LABS: Urine Blood Negative (Negative); Urine Glucose Negative (Negative); Urine Protein Negative (Negative); Urine pH 5.5 (5.0-7.0)
[2022-05-18 20:32] LABS: Urine Bacteria None Seen /HPF (<20); Urine Mucus Slight /HPF (None Seen); Urine RBC <5 /HPF (None Seen)
[2022-05-18 20:36] LABS: Barbiturates NEGATIVE (NEGATIVE); Benzodiazepines NEGATIVE (NEGATIVE); Cocaine NEGATIVE (NEGATIVE); METHAMPHETAM NEGATIVE (NEGATIVE); Methadone NEGATIVE (NEGATIVE); Opiates NEGATIVE (NEGATIVE); Phencyclidine NEGATIVE (NEGATIVE); THC Cannibis NEGATIVE (NEGATIVE)
[2022-05-18] MEDS ORDERED: DIAZEPAM 10 MG/2 ML INJ SYRINGE ONE (20:53)
--- NOTE | 2022-05-18 21:34 | RAD REPORT ---
EXAM DESCRIPTION: CT - Head C Spine Cap Laney Kennedy - 05/18/2022 9:12 pm CLINICAL HISTORY: Head and neck injury with chest and abdominal pain status post fall. Head and neck pain . TECHNIQUE: Computed axial tomography of the head and cervical spine was obtained Computed axial tomography of the chest, abdomen and pelvis was obtained. 100 cc Isovue-300 was given intravenously coronal and sagittal reconstruction was performed. All CT scans are performed using dose optimization technique as appropriate and may include automated exposure control or mA/KV adjustment according to patient size. COMPARISON: 2019 FINDINGS: An intracranial bleed is not seen. The ventricles are normal in caliber. An extra-axial fl uid collection is not noted. Fluid within the sinuses is not seen A cervical fracture is not seen. No dislocation is seen. Spondylosis cervical spine A mediastinal hematoma is not noted. A pleural effusion is not present. A lung contusion is not seen. The liver, spleen, pancreas, adrenals, kidneys and bladder do not demonstrate an acute traumatic inju ry Postsurgical changes involve the spine IMPRESSION: No acute intracranial abnormality is seen A cervical fracture is not visualized. If the patient continues have symptoms to suggest intracranial /spinal cord pathology then MRI would be recommended. No acute traumatic injury involving the chest, abdomen or pelvis is seen.
--- NOTE | 2022-05-18 21:34 | RAD REPORT ---
EXAM DESCRIPTION: CT - Facial Bones W/ Mpr - 05/18/2022 9:18 pm CLINICAL HISTORY: Facial injury status post fall COMPARISON: none TECHNIQUE: Computed axial tomography of the face was obtained. Coronal and sagittal reconstruction w as performed. All CT scans are performed using dose optimization technique as appropriate and may include automated exposure control or mA/KV adjustment according to patient size. FINDINGS: A fracture is not seen. A TMJ dislocation is not noted. The globes are intact. Fluid left maxillary sinus may indicate acute sinusitis. Dental caries. Mild right frontal scalp swelling IMPRESSION: Negative for a facial fracture.
--- NOTE | 2022-05-18 21:35 | RAD REPORT ---
EXAM DESCRIPTION: Olivia Single View05/18/2022 7:52 pm CLINICAL HISTORY: Chest pain COMPARISON: 2020 FINDINGS: The lungs appear clear of acute infiltrate. The heart is normal size Postsurgical changes involve the chest IMPRESSION: No acute abnormalities displayed
--- NOTE | 2022-05-18 22:05 | EDPHYS ---
Physician Documentation [facility] Name: Bryan Graf Age: 71 yrs Sex: Male : 1950 Arrival Date: 05/18/2022 Time: 18:22 Bed 7 Private MD: ED Physician Roe Yang HPI: 05/18 18:50 This 71 yrs old Male presents to ER via EMS with complaints of Fall Injury. cp 18:50 Details of fall: The patient fell from an upright position, while walking. Onset: The cp symptoms/episode began/occurred last night. Associated injuries: The patient sustained injury to the head, contusion, pain, right hip. Patient reports while walking in home last night that he lost his balance and fell. Struck right side of face and head against ground. Denies seizure, denies LOC. C/o right side head pain and right hip pain. Historical: - Allergies: 18:37 Aspirin; ld1 18:37 PENICILLINS; ld1 - PMHx: 18:37 Chronic pain; CVA; COPD; Hypertension; Pneumonia; Seizures; swelling and pain to L ld1 lower leg; Migraine; - PSHx: 18:37 Heart surgery; ld1 - Immunization history:: Adult Immunizations up to date, Client reports receiving the 2nd dose of the Covid vaccine. - Social history:: Smoking status: Patient reports the use of cigarette tobacco products, smokes one-half pack cigarettes per day, Patient/guardian denies using alcohol. ROS: 18:55 Constitutional: Negative for body aches, chills, fever, poor PO intake. cp 18:55 Cardiovascular: Negative for chest pain, edema, palpitations. cp 18:55 Respiratory: Negative for cough, shortness of breath, wheezing. 18:55 Eyes: Negative for injury, pain, redness, and discharge. cp 18:55 Neck: Negative for stiffness. 18:55 Abdomen/GI: Negative for abdominal pain, vomiting, diarrhea, constipation. 18:55 MS/extremity: Positive for pain, of the right hip, Negative for decreased range of motion, deformity. 18:55 Neuro: Positive for headache, Negative for altered mental status. cp 18:55 All other systems are negative. Exam: 19:00 ECG was reviewed by the Attending Physician. cp 19:05 Constitutional: The patient appears in no acute distress, alert, awake, cp non-diaphoretic, non-toxic, well developed, well nourished. 19:05 Head/face: Noted is ecchymosis, that is mild, of the right orbital area, swelling, cp that is mild, of the right orbital area. 19:05 Eyes: Pupils: equal, round, and reactive to light and accomodation, Extraocular movements: intact throughout, Conjunctiva: normal, no exudate, no injection, Sclera: no appreciated abnormality. 19:05 ENT: External ear(s): are unremarkable, Ear canal(s): are normal, clear, TM's: dullness, bilaterally, Nose: is normal, Mouth: Lips: moist, Oral mucosa: moist, Posterior pharynx: Airway: no evidence of obstruction, patent. 19:05 Neck: C-spine: vertebral tenderness, is not appreciated, crepitus, is not appreciated, ROM/movement: pain, that is mild, limited range of motion, is not appreciated, nuchal rigidity, is not appreciated. 19:05 Chest/axilla: Inspection: normal, Palpation: is normal, no crepitus, no tenderness. 19:05 Cardiovascular: Rate: normal, Rhythm: regular, Edema: is not appreciated, JVD: is not appreciated. 19:05 Respiratory: the patient does not display signs of respiratory distress, Respirations: normal, no use of accessory muscles, no retractions, labored breathing, is not present, Breath sounds: are clear throughout, no decreased breath sounds, no stridor, no wheezing. 19:05 Abdomen/GI: Inspection: abdomen appears normal, Palpation: abdomen is soft and non-tender, in all quadrants. 19:05 Back: vertebral tenderness, is not appreciated. 19:05 Musculoskeletal/extremity: Extremities: noted in the right hip: pain, tenderness, There is no evidence of decreased ROM, deformity. 19:05 Neuro: Orientation: to person, place \T\ time. Mentation: is normal, Motor: moves all fours, strength is normal, Sensation: is normal. Vital Signs: 18:35 BP 125 / 70; Pulse 76; Resp 16; Temp 97.7(O); Pulse Ox 95% on R/A; Weight 70.31 kg; ld1 Height 5 ft. 7 in. (170.18 cm); Pain 9/10; 18:56 BP 125 / 70; Pulse 73; Resp 14; Pulse Ox 98% on R/A; Pain 9/10; ld1 19:30 BP 134 / 77; Pulse 71; Resp 16; Pulse Ox 97% on R/A; jb4 20:30 BP 121 / 76; Pulse 64; Resp 16; Pulse Ox 97% on R/A; jb4 21:21 BP 124 / 67; Pulse 67; Resp 14; Pulse Ox 100% on R/A; jb4 18:35 Body Mass Index 24.28 (70.31 kg, 170.18 cm) ld1 MDM: 18:24 Patient medically screened. cp 21:00 Differential diagnosis: closed head injury, contusion, fracture, laceration, multiple cp trauma. 22:02 Data reviewed: vital signs, nurses notes, lab test result(s), EKG, radiologic studies, cp CT scan, plain films. 22:02 Consideration of Admission/Observation Escalation of care including cp admission/observation considered. I considered the following discharge prescriptions or medication management in the emergency department Medications were administered in the Emergency Department. See MAR. Care significantly affected by the following chronic conditions: Hypertension, Chronic Obstructive Pulmonary Disease, seizures, pain. Counseling: I had a detailed discussion with the patient and/or guardian regarding: the historical points, exam findings, and any diagnostic results supporting the discharge/admit diagnosis, lab results, radiology results, to return to the emergency department if symptoms worsen or persist or if there are any questions or concerns that arise at home. Response to treatment: the patient's symptoms have markedly improved after treatment, and as a result, I will discharge patient. 05/18 18:44 Order name: Basic Metabolic Panel; Complete Time: 20:35 cp 05/18 20:35 Interpretation: Normal except: GLUC 109. cp 05/18 18:44 Order name: CBC with Diff; Complete Time: 20:35 cp / 20:35 Interpretation: Normal except: RDW 17.3; MN% 13.9. cp 05/18 18:44 Order name: LFT's; Complete Time: 20:35 cp 05/18 21:23 Interpretation: Normal except: AST 9; ALT < 10; ALB 3.2; GLOB 4.3; A/G 0.7. cp 05/18 18:44 Order name: Magnesium; Complete Time: 20:35 cp 05/18 18:44 Order name: NT PRO-BNP; Complete Time: 20:35 cp 02/ 22:02 Interpretation: NT PRO-BNP 132; Reviewed. cp 05/18 18:44 Order name: PT-INR; Complete Time: 20:35 cp 02/ 18:44 Order name: Troponin HS; Complete Time: 20:35 cp 02/ 22:02 Interpretation: Reviewed. cp 05/18 18:44 Order name: XRAY Chest (1 view); Complete Time: 21:56 cp 02/ 21:56 Interpretation: Report review. cp 05/18 18:47 Order name: CK; Complete Time: 22:33 cp 02/ 22:33 Interpretation: Reviewed. cp 05/18 18:47 Order name: CT Traumagram (Head C Spine CAP W Con); Complete Time: 21:56 cp 05/18 18:47 Order name: CT Facial Bones W/O Con cp 05/18 19:32 Order name: Urine Microscopic Only; Complete Time: 20:35 cp 05/18 22:03 Interpretation: Reviewed. cp 05/18 19:32 Order name: UDS; Complete Time: 21:22 cp 05/18 21:22 Interpretation: Reviewed. cp 05/18 20:09 Order name: Urine Dipstick-Ancillary; Complete Time: 20:35 EDMS 05/18 18:44 Order name: EKG; Complete Time: 18:54 cp 05/18 18:44 Order name: Cardiac monitoring; Complete Time: 18:46 cp 05/18 18:44 Order name: EKG - Nurse/Tech; Complete Time: 18:55 cp 05/18 18:44 Order name: IV Saline Lock; Complete Time: 18:55 cp 05/18 18:44 Order name: Labs collected and sent; Complete Time: 18:55 cp 05/18 18:44 Order name: O2 Per Protocol; Complete Time: 18:46 cp 05/18 18:44 Order name: O2 Sat Monitoring; Complete Time: 18:46 cp 05/18 18:58 Order name: Facial Bones W/ Mpr; Complete Time: 21:56 EDMS 05/18 19:32 Order name: Urine Dipstick-Ancillary (obtain specimen); Complete Time: 20:54 cp EC:00 Rate is 68 beats/min. Rhythm is regular. QRS interval is normal. QT interval is normal. cp T waves are Inverted in lead aVR. Interpreted by me. Reviewed by me. Administered Medications: 19:52 Drug: Tylenol 650 mg Route: PO; aa9 20:54 Follow up: Response: No adverse reaction 20:54 Drug: Diazepam 1 mg Route: IVP; Site: right forearm; aa9 22:14 Drug: Ibuprofen 800 mg Route: PO; aa9 Disposition: 05/19 07:30 Co-signature as Attending Physician, Roe Yang MD I reviewed the patient's care rn provided by the Advanced Practice Provider and agree with the diagnosis and treatment plan. Disposition Summary: 05/18/22 22:04 Discharge Ordered Location: Home cp Problem: new cp Symptoms: have improved cp Condition: Stable cp Diagnosis - Fall on same level, unspecified cp - Contusion of unspecified part of head, initial encounter cp - Pain in right hip cp Followup: cp - With: Private Physician - When: 2 - 3 days - Reason: Recheck today's complaints Discharge Instructions: - Discharge Summary Sheet cp - Facial or Scalp Contusion cp - Head Injury, Adult cp - Fall Prevention in the Home, Adult cp - Hip Pain cp Forms: - Medication Reconciliation Form cp - Thank You Letter cp - Antibiotic Education cp - Prescription Opioid Use cp Prescriptions: - Mobic 7.5 mg Oral Tablet - take 1 tablet by ORAL route once daily take with food; 20 tablet; Refills: 0, cp Product Selection Permitted Signatures: Dispatcher [employer] EDRoe Mathis MD MD rn Page, Corey, PA PA cp Kiera Camp RN RN ld1 Anahy Mathis RN RN aa9
--- NOTE | 2022-05-18 22:05 | ER ---
Nurse's Notes [facility] Name: Bryan Graf Age: 71 yrs Sex: Male : 1950 Arrival Date: 05/18/2022 Time: 18:22 Bed 7 Private MD: Diagnosis: Fall on same level, unspecified;Contusion of unspecified part of head, initial encounter;Pain in right hip Presentation: 05/18 18:35 Chief complaint: EMS states: toned out to patient home for fall that occurred last ld1 night 05/17/2022. Pt reports falling and hitting face on ground - denies LOC - not on blood thinners. Pt c/o pain to right side of face \T\ behind right ear. Coronavirus screen: At this time, the client does not indicate any symptoms associated with coronavirus-19. Ebola Screen: No symptoms or risks identified at this time. Initial Sepsis Screen: Does the patient meet any 2 criteria? No. Patient's initial sepsis screen is negative. Does the patient have a suspected source of infection? No. Patient's initial sepsis screen is negative. Risk Assessment: Do you want to hurt yourself or someone else? Patient reports no desire to harm self or others. Onset of symptoms was May 18, 2022 at 18:37. 18:35 Method Of Arrival: EMS: [facility] ld1 18:35 Acuity: GELACIO 3 ld1 Triage Assessment: 18:37 General: Appears in no apparent distress. uncomfortable, Behavior is calm, cooperative, ld1 appropriate for age. Pain: Complains of pain in right ear, right eye and right base of the skull Pain does not radiate. Pain currently is 9 out of 10 on a pain scale. Quality of pain is described as sharp, shooting, throbbing, Pain began 1 day ago. Is continuous. EENT: Denies decreased hearing blurred vision. Neuro: Level of Consciousness is awake, alert, obeys commands, Oriented to person, place, time, situation, Appropriate for age. Cardiovascular: Capillary refill < 3 seconds Patient's skin is warm and dry. Rhythm is sinus rhythm. Respiratory: Airway is patent Respiratory effort is even, unlabored. GI: Abdomen is flat, non-distended. : No signs and/or symptoms were reported regarding the genitourinary system. Derm: Bruising that is dark purple, on right eye. Musculoskeletal: No signs and/or symptoms reported regarding the musculoskeletal system. Historical: - Allergies: 18:37 Aspirin; ld1 18:37 PENICILLINS; ld1 - PMHx: 18:37 Chronic pain; CVA; COPD; Hypertension; Pneumonia; Seizures; swelling and pain to L ld1 lower leg; Migraine; - PSHx: 18:37 Heart surgery; ld1 - Immunization history:: Adult Immunizations up to date, Client reports receiving the 2nd dose of the Covid vaccine. - Social history:: Smoking status: Patient reports the use of cigarette tobacco products, smokes one-half pack cigarettes per day, Patient/guardian denies using alcohol. Screenin:39 [facility] ED Fall Risk Assessment (Adult) History of falling in the last 3 months, ld1 including since admission Yes- single mechanical fall (1 pt). Abuse screen: Denies threats or abuse. Denies injuries from another. Nutritional screening: No deficits noted. Tuberculosis screening: No symptoms or risk factors identified. Assessment: 18:39 Reassessment: See triage assessment. ld1 19:56 Reassessment: pt refused CT until provided with medication to help with him aa9 claustrophobia. 21:18 Reassessment: Patient appears in no apparent distress at this time. Patient and/or jb4 family updated on plan of care and expected duration. Pain level reassessed. Patient is alert, oriented x 3, equal unlabored respirations, skin warm/dry/pink. 22:30 Reassessment: Patient appears in no apparent distress at this time. Patient and/or aa9 family updated on plan of care and expected duration. Pain level reassessed. Patient is alert, oriented x 3, equal unlabored respirations, skin warm/dry/pink. pt states he wants to go home now, notified Page PA. 22:41 Reassessment: Patient appears in no apparent distress at this time. Patient and/or aa9 family updated on plan of care and expected duration. Pain level reassessed. Patient is alert, oriented x 3, equal unlabored respirations, skin warm/dry/pink. pt understands discharge instructions, denies concerns. Vital Signs: 18:35 BP 125 / 70; Pulse 76; Resp 16; Temp 97.7(O); Pulse Ox 95% on R/A; Weight 70.31 kg; ld1 Height 5 ft. 7 in. (170.18 cm); Pain 9/10; 18:56 BP 125 / 70; Pulse 73; Resp 14; Pulse Ox 98% on R/A; Pain 9/10; ld1 19:30 BP 134 / 77; Pulse 71; Resp 16; Pulse Ox 97% on R/A; jb4 20:30 BP 121 / 76; Pulse 64; Resp 16; Pulse Ox 97% on R/A; jb4 21:21 BP 124 / 67; Pulse 67; Resp 14; Pulse Ox 100% on R/A; jb4 18:35 Body Mass Index 24.28 (70.31 kg, 170.18 cm) ld1 ED Course: 18:22 Patient arrived in ED. eb 18:24 Luis Eduardo Sanchez PA is PHCP. cp 18:24 Roe Yang MD is Attending Physician. cp 18:37 Triage completed. ld1 18:37 Arm band placed on right wrist. ld1 18:39 Patient has correct armband on for positive identification. Placed in gown. Bed in low ld1 position. Call light in reach. Side rails up X2. panel monitor on. Pulse ox on. NIBP on. Door closed. Noise minimized. Warm blanket given. 18:39 No provider procedures requiring assistance completed. ld1 18:55 Inserted saline lock: 20 gauge in right forearm, using aseptic technique. Blood ld1 collected. 18:57 Jennifer Jackson, RN is Primary Nurse. hb 19:22 Primary Nurse role handed off by Jennifer Jackson RN wm 19:54 XRAY Chest (1 view) In Process Unspecified. EDMS 21:13 CT Traumagram (Head C Spine CAP W Con) In Process Unspecified. EDMS 21:20 Facial Bones W/ Mpr In Process Unspecified. EDMS 21:21 Jeff Guzman, RN is Primary Nurse. jb4 22:41 IV discontinued, intact, bleeding controlled, No redness/swelling at site. Pressure aa9 dressing applied. Administered Medications: 19:52 Drug: Tylenol 650 mg Route: PO; aa9 20:54 Follow up: Response: No adverse reaction aa9 20:54 Drug: Diazepam 1 mg Route: IVP; Site: right forearm; aa9 22:14 Drug: Ibuprofen 800 mg Route: PO; aa9 Medication: 18:39 VIS not applicable for this client. ld1 Outcome: 22:04 Discharge ordered by . cp 22:41 Discharged to home via wheelchair, with family. aa9 22:41 Condition: stable 22:41 Discharge instructions given to patient, family, Instructed on discharge instructions, follow up and referral plans. medication usage, Demonstrated understanding of instructions, follow-up care, medications, Prescriptions given X 1. 22:41 Patient left the ED. aa9 Signatures: Dispatcher [employer] EDMS Luis Eduardo Sanchez PA PA cp Baxter, Heather, RN RN Jeff Guzman RN RN jb4 Hailey Barnett Lauren RN RN ld1 Halima Frank Aylin, RN RN aa9
[2022-05-18] MEDS ORDERED: IBUPROFEN 400 MG TAB ONE (22:12)
[2022-05-18 23:37] VITALS: BP 124/67; TEMP 97.7; O2SAT 100
== END 2022-05-18 22:41 | disposition home or self-care (01) ==
LOC: ER 18:13
DX: S00.83XA Contusion of other part of head, initial encounter (principal); M25.551 Pain in right hip; W18.30XA Fall on same level, unspecified, initial encounter; F17.210 Nicotine dependence, cigarettes, uncomplicated; I10 Essential (primary) hypertension; Z88.0 Allergy status to penicillin; Z88.6 Allergy status to analgesic agent; Z86.73 Personal history of transient ischemic attack (TIA), and cerebral infarction without residual deficits
CPT/HCPCS: 85025; 80048; 36415; 83735; 82550; 85610; 80076; 84484; 83880; 80307; 70450; 72125; 71260; 70486; 76377; 74177; 71045; 96374; 99285; Q9967; J3360; 81003; 81015; 93005

== ENCOUNTER 2022-05-20 13:25 | Inpatient (IN) | payer OTHER ==
--- OUTSIDE RECORDS SUMMARY | 2022-05-20 13:35 | XMS REPORT | Continuity of Care Document ---
:1950 Author Organization [facility] t Address [address] [place] [address] Care Team Providers Name Role Phone Uli Botello Rebecca Primary Care Physician MIKI NICHOLS Attending Clinician Unavailable CLARY BRAY Attending Clinician Unavailable AUGUSTIN DC Attending Clinician Unavailable MAXIMILIANO RUSSELL Attending Clinician Unavailable AUGUSTIN GUAMAN Attending Clinician Unavailable HENRY BULL Attending [...] 8-25 [facility] status status 00:[facility]: [facility] 00 [place] Ptosis, Ptosis, Disease Active [facility] left left 8[facility]25 [facility] 00:[facility]: [facility] 00 [place] COPD COPD Disease Active [facility] (chronic (chronic [facility]-25 [facility] obstructiv obstructiv 00:00: Ut dical e e 00 Center pulmonary pulmonary [...] fibrillati fibrillati 00:00: Me dical on on [place] Pulmonary Pulmonary Disease Active [facility] embolism embolism 8-14 [facility] 00:00: Medical [place] Left-sided Left-sided Disease Active [facility] muscle muscle 6-26 [facility] weakness weakness 00:00: Medica l 00 [place] Muscle Muscle Disease Active [facility] cramps cramps 6-26 [facility] Tension Tension Disease Active [facility] type type 6-26 [facility] headache headache 00:00: Medica l 00 [place] CVA CVA Disease Active [facility] (cerebral [...] 6-24 Thao kes ation ation 00:00: Medical [place] Cellulitis Cellulitis Disease Active [facility] of of 3-19 [facility] caul dresser caul dresser 00:00: 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 space of 00 [place] mouth mouth Mandibular Mandibular Disease Active [facility] abscess abscess 3-18 [facility] 00:00: Medical 00 Center CVA CVA Diagnosis Active 2011-09-21 Mem oria Active 09-12 14:49:00 l 09/13/2011 06:00: Richard n 00 Rehabilita tion Dysarthria Dysarthri Problem Active 2011-10-03 Memoria a Active 08:09:33 l Problem [place] 10/03/2011 [facility] Weakness Weakness Problem Active 2011-10-03 Memoria Active 08:09:33 l Problem [place] 10/03/2011 [facility] CVA CVA Diagnosis Active 2011-09-21 Mem oria Active 14:49:00 l Rehabilita Richard n tion Allergies, Adverse Reactions, Alerts Allergy Allergy Status Severity Reaction(s) Onset Inactive Treating Comm ents Source Name Type Date Date Clinician ASPIRIN Allergy Active Hives [facility] (TARTRAZ 3-18 [facility] INE 00:00: Medical ONLY) 00 Center Aspirin Propensi Active Hives [facility] (Tartraz ty to 3-18 [facility] ine adverse 00:00: Medical Only) reaction 00 Center s ASPIRIN Allergy Active Hives [facility] 3-16 [facility] 00:[facility]: Medical 00 Center PENICILL Allergy Active Hives [facility] INS 3-16 [facility] 00:[facility]: Medical 00 Center Aspirin Propensi Active Hives [facility] ty to 3-16 [facility] adverse 00:00: Medical reaction 00 Center s Penicill Propensi Active Hives, [facility] ty to Swelling 3-16 [facility] adverse 00:00: Medical reaction 00 Center s aspirin aspirin Active Memoria l [place] codeine codeine Active [facility] [place] penicill penicill Active Memori a ins ins [...] [facility] Thao kes exposure 00:00:00 00:00:00 [facility] Center Sex Assigned At [birth year] [facility] Thao kes 00:00:00 00:00:00 Medical Center Smoking Status Start Date Stop Date Source Current every day smoker 2016-06-30 00:00:00 [facility] Medications Ordered Filled Start Stop Current Ordering Indication Dosage Frequency Signature Comments Components Source Medication Medication Date Date Medication? Clinician (SIG) Name Name acetaminoph 2017-0 Yes 500mg Take [address] en 9-08 mg by [facility] (TYLENOL) 12:11: mouth Medical 500 MG 30 every 4 Center tablet (four) hours as needed for Pain. acetaminoph 2017-0 Yes 500mg Take [address] en 9-08 mg by [facility] (TYLENOL) 12:11: mouth Medical 500 MG 30 every 4 Center tablet (four) hours as needed for Pain. arformotero 2017- Yes 15ug Q.5D Take [address] [address] l (BROVANA) 9-08 (15 mcg [facility] 15 mcg/2 mL 00:00: total) by M [facility] nebulizer 00 [address] er solution on [...] MG 00 by mouth Center tablet daily. arformotero 2017-0 Yes 15ug Q.5D Take [address] [facility] (BROVANA) 9-08 (15 mcg [facility] 15 mcg/2 mL 00:00: total) by M [facility] nebulizer 00 [address] er solution on [...] PO, Memoria 6-16 Substituti l 23:36: on [place] 37 Allowed, TAB Soma 2011-0 Yes 1, PO, Memoria 6-16 Substituti l 23:36: on Miguel 37 Allowed, TAB OXYcodone 2011-0 Yes 1, PO, Memori a 6-16 PRN, as l 23:36: needed for Miguel 23 pain, Substituti on Allowed, TAB OXYcodone 2011-0 Yes 1, PO, Memori a 6-16 PRN, as l 23:36: needed for Miguel 23 pain, Substituti on Allowed, TAB Ambien 5 mg 2011-0 Yes Meilani H 5 mg, 1 Memoria oral tablet 6-15 [place] tab, PO, l 19:27: Bedtime, [place] 59 30 tab, Substituti on Allowed, TAB Ambien 5 mg 2011-0 Yes Meilani H 5 mg, 1 Memoria oral tablet 6-15 [place] tab, PO, l 19:27: Bedtime, Miguel 59 30 tab, Substituti on Allowed, TAB Keppra 750 2012-0 Yes Meilani H 750 mg, 1 Memoria mg oral 6-15 [place] tab, PO, l tablet 19:27: Q12H, 60 [place] 52 tab, Substituti on Allowed, TAB Keppra 750 2011-0 Yes Meilani H 750 mg, 1 Memoria mg oral 6-15 [place] tab, PO, l tablet 19:27: Q12H, 60 Miguel 52 tab, Substituti on Allowed, TAB famotidine Yes Meilani H 20 mg, 1 Memoria 20 mg oral 6-15 [place] tab, PO, l tablet 19:27: BID, 60 [place] 44 tab, Substituti on Allowed, TAB famotidine Yes Meilani H 20 mg, 1 Memoria 20 mg oral 6-15 [place] tab, PO, l tablet 19:27: BID, 60 [place] 44 tab, Substituti on Allowed, TAB Colace 100 Yes Meilani H 100 mg, 1 Memoria mg oral 6-15 [place] cap, PO, l capsule 19:27: BID, 60 [place] 40 cap, Substituti on Allowed, CAP Colace 100 Yes Meilani H 100 mg, 1 Memoria mg oral 6-15 [place] cap, PO, l capsule 19:27: BID, 60 [place] 40 cap, Substituti on Allowed, CAP Plavix 75 Yes Meilani H 75 mg, 1 Memoria mg oral 6-15 [place] tab, PO, l tablet 19:27: Daily, 30 Richard n 36 tab, Substituti on Allowed, TAB Plavix 75 Yes Meilani H 75 mg, 1 Memoria mg oral 6-15 [place] tab, PO, l tablet 19:27: Daily, 30 Richard n 36 tab, Substituti on Allowed, TAB atorvastati Yes Meilani H 80 mg, 1 Memoria n 80 mg 6-15 [place] tab, PO, l oral tablet 19:27: QPM, 30 Her maloney 34 tab, Substituti on Allowed, TAB atorvastati Yes [...] pain, Substituti on Allowed, Maintenanc e, TAB Percocet 2012-0 Yes Meilani H 1 tab, PO, Memoria 5/325 oral 6-15 [place] BID, PRN, l tablet 19:27: 60 tab, as Amira nn 30 needed for pain, Substituti on Allowed, Maintenanc e, TAB Ambien CR 2011-0 No Marcial De 6.25 mg, Memoria 6-09 [place] Route: PO, l 02:00: Bedtime, [place] 00 Start date: 09/21/11 21:00:00, Duration: 30 day, Stop date: 10/20/11 21:00:00 Ambien 2011-0 No Marcial De 5 mg, 1 Me moria 6-09 [place] tab, l 02:00: Route: PO, [place] 00 Drug form: TAB, Bedtime, Start date: 09/21/11 21:00:00, Duration: 30 day, Stop date: 10/20/11 21:00:00 Ambien CR 2011-0 No Marcial De 6.25 mg, Memoria 6-09 [place] Route: PO, l 02:00: Bedtime, Miguel Start date: 09/21/11 21:00:00, Duration: 30 day, Stop date: 10/20/11 21:00:00 Ambien 2011-0 No Marcial De 5 mg, 1 Me moria 6-09 [place] tab, l 02:00: Route: PO, [place] 00 Drug form: TAB, Bedtime, Start date: 09/21/11 21:00:00, Duration: 30 day, Stop date: 10/20/11 21:00:00 Percocet 2011-0 No Marcial De 1 tab, M emoria 5/325 oral 6-08 [place] Route: PO, l tablet 14:11: Drug Form: Amira nn 00 TAB, BID, Start date: 09/21/11 9:11:00, Duration: 30 day, Stop date: 10/21/11 7:00:00 Percocet 2011-0 No Marcial De 1 tab, M emoria 5/325 oral 6-08 [place] Route: PO, l tablet 14:11: Drug Form: Amira nn 00 TAB, BID, Start date: 09/21/11 9:11:00, Duration: 30 day, Stop date: 10/21/11 7:00:00 Plavix 2011-0 No Jeff 75 mg, 1 Memori a -02 Jef tab, l 14:00: [place] Route: PO, Richard n 00 Drug form: TAB, Daily, Start date: 09/15/11 9:00:00, Duration: 30 day, Stop date: 10/14/11 9:00:00 Plavix 2011-0 No Jeff 75 mg, 1 Memori a - Jef tab, l 14:00: [place] Route: PO, Richard n 00 Drug form: TAB, Daily, Start date: 09/15/11 9:00:00, Duration: 30 day, Stop date: 10/14/11 9:00:00 Saline 2011-0 No Jeff 3 mL, Memoria Flush 0.9% 09-14 Jef Route: l 03:49: [place] IVP, Drug [place] 00 Form: INJ, Q8H, PRN Line Flush, [...] 30 day, Stop date: 10/14/11 22:48:00 bisacodyl 2011-0 No Jeff 10 mg, 1 Mem oria -02 Jef supp, l 03:49: [place] Route: IN, Richard n 00 Drug form: SUPP, Bedtime, PRN Constipati on, Start date: 09/14/11 22:49:00, Duration: 30 day, Stop date: 10/14/11 22:48:00 zolpidem 2011-0 No Marcial Guzman 5 mg, 1 Memoria -02 [place] tab, l 03:49: Route: PO, Miguel 00 Drug form: TAB, Bedtime, PRN Insomnia, Start date: 09/14/11 22:49:00, Duration: 30 day, Stop date: 10/14/11 22:48:00 Saline 2012-0 No Jeff 3 mL, Memoria Flush 0.9% [...] 09-14 Jef supp, l 03:49: [place] Route: IN, Richard n 00 Drug form: SUPP, Bedtime, PRN Constipati on, Start date: 09/14/11 22:49:00, Duration: 30 day, Stop date: 10/14/11 22:48:00 zolpidem No Marcial De 5 mg, 1 Memoria 09-14 [place] tab, l 03:49: Route: PO, Miguel 00 Drug form: TAB, Bedtime, PRN Insomnia, Start date: 09/14/11 22:49:00, Duration: 30 day, Stop date: 10/14/11 22:48:00 Keppra 750 No Jeff 750 mg, 3 M emoria mg oral 09-14 Jef tab, l tablet 02:00: [place] Route: PO, Herm graham 00 Drug form: TAB, Q12H, Start date: 09/14/11 21:00:00, Duration: 30 day, Stop date: 10/14/11 9:00:00 Keppra 750 No Jeff 750 mg, 3 M emoria mg oral -02 Jef tab, l tablet 02:00: [place] Route: PO, Herm graham 00 Drug form: TAB, Q12H, Start date: 09/14/11 21:00:00, Duration: 30 day, Stop date: 10/14/11 9:00:00 famotidine 2012-0 No Jeff 20 mg, 1 Me moria 20 mg oral 6-01 Jef tab, l tablet 22:00: [place] Route: PO, Herm graham 00 Drug form: TAB, BID, Start date: 09/14/11 17:00:00, Duration: 30 day, Stop date: 10/14/11 9:00:00 Colace 100 2012-0 No Jeff 100 mg, 1 M emoria mg oral 6-01 Jef cap, l capsule 22:00: [place] Route: PO, Her maloney 00 Drug form: CAP, BID, Start date: 09/14/11 17:00:00, Duration: 30 day, Stop date: 10/14/11 9:00:00 atorvastati 2011-0 No Jeff 80 mg, 1 M emoria n 6-01 Jef tab, l 22:00: [place] Route: PORichard n 00 Drug form: TAB, QPM, Start date: 09/14/11 17:00:00, Duration: 30 day, Stop date: 10/13/11 17:00:00 famotidine 2011-0 No Jeff 20 mg, 1 Me moria 20 mg oral 6- Jef tab, l tablet 22:00: [place] Route: POGris graham 00 Drug form: TAB, BID, Start date: 09/14/11 17:00:00, Duration: 30 day, Stop date: 10/14/11 9:00:00 Colace 100 2011-0 No Jeff 100 mg, 1 M emoria mg oral 6-01 Jef cap, l capsule 22:00: [place] Route: PO, maloney 00 Drug form: CAP, BID, Start date: 09/14/11 17:00:00, Duration: 30 day, Stop date: 10/14/11 9:00:00 atorvastati 2012-0 No Jeff 80 mg, 1 M emoria n 6-01 Jef tab, l 22:00: [place] Route: PORichard n 00 Drug form: TAB, QPM, Start date: 09/14/11 17:00:00, Duration: 30 day, Stop date: 10/13/11 17:00:00 enoxaparin 2012-0 No Jeff 40 mg, 0.4 Memoria 6-01 Jef mL, Route: l 20:00: [place] SUB-QMiguel 00 Drug form: INJ, Q24H, Start date: 09/14/11 15:00:00, Duration: 30 day, Stop date: 10/13/11 9:00:00 enoxaparin 2011-0 No Jeff 40 mg, 0.4 Memoria 6-01 Jef mL, Route: l 20:00: [place] SUB-Q, [place] 00 Drug form: INJ, Q24H, Start date: 09/14/11 15:00:00, Duration: 30 day, Stop date: 10/13/11 9:00:00 Percocet 2011-0 No Jeff 1 tab, Memori a 5/325 oral 6-01 Jef Route: PO, l tablet 19:58: [place] Drug Form: Herm graham 00 TAB, Q4H, PRN Pain, Start date: 09/14/11 14:58:00, Duration: 30 day, Stop date: 10/14/11 14:57:00 Percocet 2011-0 No Jeff 1 tab, Memori a 5/325 oral 6-01 Jef Route: PO, l tablet 19:58: [place] Drug Form: Herm graham 00 TAB, Q4H, PRN Pain, Start date: 09/14/11 14:58:00, Duration: 30 day, Stop date: 10/14/11 14:57:00 Vital Signs Vital Name Observation Time Observation Value Comments Source Systolic (mm Hg) 2011-10-01 10:34:00 Luan rial [place] Respitory Rate 2011-10-01 10:34:00 Memori al Miguel Heart Rate 2011-10-01 10:34:00 [facility] [place] Temperature Oral (F) 2011-10-01 10:34:00 97.6 F [facility] [place] Diastolic (mm Hg) 2011-10-01 10:34:00 Mem orial [place] Diastolic (mm Hg) 2011-10-01 00:44:00 Mem orial Miguel Respitory Rate 2011-10-01 00:44:00 Memori al [place] Heart Rate 2011-10-01 00:44:00 [facility] [place] Systolic (mm Hg) 2011-10-01 00:44:00 Luan rial Miguel Temperature Oral (F) 2011-10-01 00:44:00 98.1 F [facility] [place] Systolic (mm Hg) 2011-09-30 21:00:00 Luan Rivera Diastolic (mm Hg) 2011-09-30 21:00:00 Mem anuja Landryann Heart Rate 2011-09-30 21:00:00 [facility] [place] Respitory Rate 2011-09-30 21:00:00 Sita Woodruff Temperature Oral (F) 2011-09-30 10:03:00 97.8 F [facility] [place] Height 2011-09-15 03:49:00 172.72 cm [facility] Miguel Weight 2011-09-15 03:49:00 [facility] This patient has no known procedures. Encounters Start End Encounter Admission Attending Care Care Encounter Source Date/Time Date/Time Type Type Clinicians Facility Department ID 2011-09-14 2011-10-01 MYRON BAKER [id number] Memoria 22:16:00 13:00:00 52 l [place] 2011-09-14 2011-10-01 SAMUEL BAKER [id number] Memoria 22:16:00 13:00:00 52 l [place] Results Test Description Test Time Test Comments Results Result Comments Source B-TYPE NATRIURETIC FACTOR (BNP) 2016-12-21 05:56:00 Test Item Value Reference Range Interpretation Comme nts B-TYPE NATRIURETIC PEPTIDE (BEAKER) (test code = 700) 136 pg/mL 0-100 H COMPREHENSIVE METABOLIC [id number] 05:53:00 Test Item Value Reference Range Interpretation [...] = 358) GLUCOSE RANDOM 94 mg/dL 70-105 ([facility]) (test code = 652) CALCIUM ([facility]) 8.7 mg/dL 8.4-10.2 (test code = 697) AST (SGOT) ([facility]) 67 U/L 5-34 H (test code = 353) ALT (SGPT) ([facility]) 88 U/L 6-55 H (test code = 347) EGFR ([facility]) (test 139 ESTIMATE D GFR IS code = 1092) mL/min/1.73 sq NOT ACCURA TE m CREATININE CLEARANCE IN PREDICTING GLOMERULAR FILTRATION RATE . ESTIMATED GFR I S NOT APPLICABLE FOR DIALYSIS PATIEN TS. POCT-GLUCOSE [id number] 16:33:00 Test Item Value Reference Range Interpretation Comments POC-GLUCOSE METER 116 mg/dL 70-110 H TESTED AT [place] [address] ([facility]) (test code = SanguineERIK Cazares [place] [address]) [id number] POCT-GLUCOSE [id number] 11:08:00 Test Item Value Reference Range Interpretation Comments POC-GLUCOSE METER 133 mg/dL 70-110 H TESTED AT [place] [address] ([facility]) (test code = [employer] [place] [address]) [address] POCT-GLUCOSE [id number] 06:11:00 Test Item Value Reference Range Interpretation Comments POC-GLUCOSE METER 105 mg/dL 70-110 TESTED AT [place] [address] ([facility]) (test code = [employer] [place] 1538) [id number] POCT-GLUCOSE [id number] 20:28:00 Test Item Value Reference Range Interpretation Comments POC-GLUCOSE METER 124 mg/dL 70-110 H TESTED AT [place] [address] ([facility]) (test code = [employer] [place] 1538) [id number] POCT-GLUCOSE [id number] 16:46:00 Test Item Value Reference Range Interpretation Comments POC-GLUCOSE METER 113 mg/dL 70-110 H TESTED AT [place] [address] ([facility]) (test code = SanguineERIK [employer] [place] 1538) [id number] POCT-GLUCOSE [id number] 11:46:00 Test Item Value Reference Range Interpretation Comments POC-GLUCOSE METER 113 mg/dL 70-110 H TESTED AT [place] [address] ([facility]) (test code = TISHA Cazares [place] 1538) [address] URINE [id number] 09:54:00 Test Item Value Reference Range Interpretation Comments CULTURE ([facility]) (test KLEBSIELLA A >100, 000 col/mL [...] S Sulfamethoxazole (test code = 47) POCT-GLUCOSE [id number] 06:46:00 Test Item Value Reference Range Interpretation Comments POC-GLUCOSE METER 111 mg/dL 70-110 H TESTED AT [place] [address] ([facility]) (test code = TISHA Cazares [place] [address]) [id number] POCT-GLUCOSE [id number] 20:48:00 Test Item Value Reference Range Interpretation Comments POC-GLUCOSE METER 128 mg/dL 70-110 H TESTED AT [place] [address] ([facility]) (test code = TISHA Cazares [place] [address]) [id number] POCT-GLUCOSE [id number] 16:00:00 Test Item Value Reference Range Interpretation Comments POC-GLUCOSE METER 127 mg/dL 70-110 H TESTED AT [place] [address] ([facility]) (test code = TISHA Cazares [place] [address]) [id number] POCT-GLUCOSE [id number] 11:16:00 Test Item Value Reference Range Interpretation Comments POC-GLUCOSE METER 273 mg/dL 70-110 H TESTED AT [place] [address] ([facility]) (test code = TISHA Cazares [place] [address]) [address] COMPREHENSIVE METABOLIC [id number] 06:44:00 Test Item Value Reference Range Interpretation [...] S NOT APPLICABLE FOR DIALYSIS PATIEN TS. [id number] 06:27:00 Test Item Value Reference Range Interpretation Comments PARTIAL THROMBOPLASTIN TIME 38.5 seconds 22.5-36.0 H (BEAKER) (test code = 760) PROTHROMBIN [id number] 06:26:00 Test Item Value Reference Range Interpretation [...] mechanical heart valves.CBC W/PLT COUNT & AUTO [id number] 06:25:00 Test Item Value Reference Range Interpretation [...] PERCENT (BEAKER) (test code = 2801) POCT-GLUCOSE [id number] 06:22:00 Test Item Value Reference Range Interpretation Comments POC-GLUCOSE METER 131 mg/dL 70-110 H TESTED AT [place] [address] (BEAKER) (test code = [facility] 1538) [address] URINALYSIS W/ [id number] 20:35:00 Test Item Value Reference Range Interpretation [...] SOURCE(BEAKER) (test code Urine, Clean Catch = 0145) POCT-GLUCOSE [id number] 20:21:00 Test Item Value Reference Range Interpretation Comments POC-GLUCOSE METER 132 mg/dL 70-110 H TESTED AT [place] [address] (BEAKER) (test code = [facility] 1538) [id number] POCT-GLUCOSE [id number] 16:17:00 Test Item Value Reference Range Interpretation Comments POC-GLUCOSE METER 101 mg/dL 70-110 TESTED AT [facility] 6720 (BEAKER) (test code = TISHA Cazares [place] [address]) [address] POCT-GLUCOSE [id number] 13:35:00 Test Item Value Reference Range Interpretation Comments POC-GLUCOSE METER 143 mg/dL 70-[address] [facility] 67[address] (BEAKER) (test code = TISHA Cazares [place] [address]) [address] BASIC METABOLIC [id number] 06:31:00 Test Item Value Reference Range Interpretation [...] APPLICABLE FOR DIALYSIS PATIEN TS. BASIC METABOLIC [id number] 05:41:00 Test Item Value Reference Range Interpretation [...] 0-0 (BEAKER) (test code = 413) VITAMIN [id number] 06:04:00 Test Item Value Reference Range Interpretation Comments VITAMIN B12 (BEAKER) (test code = 619 pg/mL 213-816 774) [id number] 06:04:00 Test Item Value Reference Range Interpretation Comments FERRITIN (BEAKER) (test code = 361) 335 ng/mL 5-275 H Effective 03/02/2014: Reference Range ChangeNew: Male 5-275 Previous: Male 22- 322 Female 5-275 Female 10-291FOLATE, [id number] 06:04:00 Test Item Value Reference Range Interpretation Comments FOLATE (BEAKER) (test code = 362) 4.9 ng/mL >=7.0 L Effective 03/02/2014: Folate Reference Range ChangeNew: >=7.0 Previous: >=5.4BASIC METABOLIC [id number] 05:47:00 Test Item Value Reference Range Interpretation [...] (BEAKER) (test code = 413) BASIC METABOLIC [id number] 05:53:00 Test Item Value Reference Range Interpretation [...] WBC 0-0 (BEAKER) (test code = 413) [id number] 22:53:00 Test Item Value Reference Range Interpretation Comments ACTIVATED CLOTTING TIME 153 sec TEST ED AT [place] [address] ([facility]) (test code = TISHA [place] [address]) [id number] 22:35:00 Test Item Value Reference Range Interpretation Comments ACTIVATED CLOTTING TIME 202 sec TEST ED AT [place] [address] ([facility]) (test code = TISHA [place] [address]) [id number] 22:04:00 Test Item Value Reference Range Interpretation Comments PARTIAL THROMBOPLASTIN TIME 45.2 seconds 22.5-36.0 H ([facility]) (test code = 760) Prior to initiating [...] (BEAKER) (test code = 413) BASIC METABOLIC [id number] 08:43:00 Test Item Value Reference Range Interpretation [...] (BEAKER) (test code = 413) BASIC METABOLIC [id number] 06:44:00 Test Item Value Reference Range Interpretation [...] PATIEN TS. CBC W/PLT COUNT & AUTO [id number] 21:33:00 Test Item Value Reference Range Interpretation [...] 0-1 PERCENT (BEAKER) (test code = 2801) [id number] 07:21:00 Test Item Value Reference Range Interpretation Comments PHOSPHORUS (BEAKER) (test code = 3.6 mg/dL 2.3-4.7 604) [id number] 07:21:00 Test Item Value Reference Range Interpretation Comments MAGNESIUM (BEAKER) (test code = 1.9 mg/dL 1.6-2.6 627) COMPREHENSIVE METABOLIC [id number] 07:21:00 Test Item Value Reference Range Interpretation [...] code = 413) PHENYTOIN LEVEL, TOTAL AND [id number] 01:14:00 Test Item Value Reference Range Interpretation Comments PHENYTOIN (DILANTIN) (BEAKER) 22.9 ug/mL 10.0-20.0 H (test code = 605) PHENYTOIN FREE (BEAKER) (test 3.51 mcg/ml 1.00-2.00 H code = 847) VALPROIC ACID LEVEL, [id number] 20:49:00 Test Item Value Reference Range Interpretation Comments VALPROIC ACID TOTAL (BEAKER) (test 33 ug/mL 50-100 L code = 924) Therapeutic range for some clinical conditions may be >100 ug/mLPOCT-GLUCOSE [id number] 17:10:00 Test Item Value Reference Range Interpretation Comments POC-GLUCOSE METER 108 mg/dL 70-[address] [facility] 6720 (BEAKER) (test code = TISHA [place] [address]) [id number] PHENYTOIN LEVEL, [id number] 12:29:00 Test Item Value Reference Range Interpretation Comments PHENYTOIN (DILANTIN) (BEAKER) 16.3 ug/mL 10.0-20.0 (test code = 605) CREATINE KINASE (CK), TOTAL AND [id number] 12:26:00 Test Item Value Reference Range Interpretation Comments CREATINE KINASE TOTAL (BEAKER) 47 U/L 29-200 (test code = 380) CREATINE KINASE-MB (BEAKER) (test 1.1 ng/mL 0.0-6.6 code = 750) CREATINE KINASE-MB INDEX (BEAKER) 2.3 % (test code = 395) Effective 03/02/2014: CK-MB Reference Range ChangeNew: 0.0-6.6 Previous: 0.0-4.9CK-MB Reference Range:<6.7 Normal6.7-10.0 Borderline>10.0 Abnormal TROPONIN [id number] 12:26:00 Test Item Value Reference Range Interpretation [...] failure, acidosis, acute neurological disease, and persistent tachyarrhythmia.[id number] 12:17:00 Test Item Value Reference Range Interpretation Comments MAGNESIUM (BEAKER) (test code = 2.0 mg/dL 1.6-2.6 627) COMPREHENSIVE METABOLIC [id number] 12:17:00 Test Item Value Reference Range Interpretation [...] PATIEN TS. CBC W/PLT COUNT & AUTO [id number] 11:55:00 Test Item Value Reference Range Interpretation [...] PERCENT (BEAKER) (test code = 2801) URINE [id number] 11:55:00 Test Item Value Reference Range Interpretation Comments CULTURE (BEAKER) (test code = 1095) No growth BLOOD GAS, [id number] 10:28:00 Test Item Value Reference Range Interpretation [...] (test code = 1819) 32.0 % POCT-GLUCOSE [id number] 09:53:00 Test Item Value Reference Range Interpretation Comments POC-GLUCOSE METER 184 mg/dL 70-[address] [facility] 6720 (AKER) (test code = [place] 1538) [address] TROPONIN [id number] 22:44:00 Test Item Value Reference Range Interpretation Comments TROPONIN I ([facility]) (test code = 0.14 ng/mL 0.00-0.03 H [...] acidosis, acute neurological disease, and persistent tachyarrhythmia.TROPONIN [id number] 15:17:00 Test Item Value Reference Range Interpretation Comments TROPONIN I ([facility]) (test code = 0.14 ng/mL 0.00-0.03 H [...] Range Interpretation Comments WHITE BLOOD CELL COUNT ([facility]) 7.7 K/ L 3.5-10.5 (test code = 775) RED BLOOD CELL COUNT (AKER) 2.98 M/ L 4.63-6.08 L (test code [...] MORPHOLOGY (BEAKER) (test code = Normal 762) [id number] 07:06:00 Test Item Value Reference Range Interpretation Comments PHOSPHORUS (BEAKER) (test code = 2.5 mg/dL 2.3-4.7 604) [id number] 07:06:00 Test Item Value Reference Range Interpretation Comments MAGNESIUM (BEAKER) (test code = 2.0 mg/dL 1.6-2.6 627) COMPREHENSIVE METABOLIC [id number] 07:06:00 Test Item Value Reference Range Interpretation [...] NOT APPLICABLE FOR DIALYSIS PATIEN TS. PROTHROMBIN [id number] 06:40:00 Test Item Value Reference Range Interpretation Comments PROTIME (BEAKER) (test code = 12.5 seconds 11.7-14.7 759) INR (BEAKER) (test code = 370) 1.0 <=5.9 RECOMMENDED COUMADIN/WARFARIN INR THERAPY RANGESSTANDARD DOSE: 2.0 - 3.0 Includes: PROPHYLAXIS for venous thrombosis, systemic embolization; TREATMENT for venous thrombosis and/or pulmonary embolus.HIGH RISK: Target INR is 2.5-3.5 for patients with mechanical heart valves.URINALYSIS W/ [id number] 06:18:00 Test Item Value Reference Range Interpretation [...] 516) SOURCE(BEAKER) (test code = Urine, Voided 9124) COMPREHENSIVE METABOLIC [id number] 05:47:00 Test Item Value Reference Range Interpretation [...] (BEAKER) (test code = 413) COMPREHENSIVE METABOLIC [id number] 10:08:00 Test Item Value Reference Range Interpretation [...] 0-0 (BEAKER) (test code = 413) POCT-GLUCOSE [id number] 12:08:00 Test Item Value Reference Range Interpretation Comments POC-GLUCOSE METER 111 mg/dL 70-110 H TESTED AT [place] [address] ([facility]) (test code = TISHA Cazares [facility] 1538) [address] POCT-GLUCOSE [id number] 08:40:00 Test Item Value Reference Range Interpretation Comments POC-GLUCOSE METER 184 mg/dL 70-110 H TESTED AT [place] [address] ([facility]) (test code = TISHA Cazares [facility] 1538) [address] [id number] 05:57:00 Test Item Value Reference Range Interpretation Comments MAGNESIUM (BEAKER) (test code = 2.1 mg/dL 1.6-2.6 627) BASIC METABOLIC [id number] 05:57:00 Test Item Value Reference Range Interpretation [...] 0-0 (BEAKER) (test code = 413) POCT-GLUCOSE [id number] 21:18:00 Test Item Value Reference Range Interpretation Comments POC-GLUCOSE METER 118 mg/dL 70-110 H TESTED AT [place] [address] (BEAKER) (test code = TISHA Cazares [place] 1538) [address] POCT-GLUCOSE [id number] 17:33:00 Test Item Value Reference Range Interpretation Comments POC-GLUCOSE METER 102 mg/dL 70-110 TESTED AT [place] [address] (BEAKER) (test code = TISHA Cazares [facility] 1538) [address] POCT-GLUCOSE [id number] 12:06:00 Test Item Value Reference Range Interpretation Comments POC-GLUCOSE METER 188 mg/dL 70-110 H TESTED AT [place] [address] (BEAKER) (test code = [facility] Sage [facility] 1538) [address] POCT-GLUCOSE [id number] 08:31:00 Test Item Value Reference Range Interpretation Comments POC-GLUCOSE METER 109 mg/dL 70-110 TESTED AT [place] [address] (BEAKER) ([facility] 1538) [address] [id number] 06:07:00 Test Item Value Reference Range Interpretation Comments MAGNESIUM (BEAKER) (test code = 2.0 mg/dL 1.6-2.6 627) BASIC METABOLIC [id number] 06:07:00 Test Item Value Reference Range Interpretation [...] S NOT APPLICABLE FOR DIALYSIS PATIEN TS. [id number] 05:40:00 Test Item Value Reference Range Interpretation [...] 0-0 (BEAKER) (test code = 413) POCT-GLUCOSE [id number] 21:01:00 Test Item Value Reference Range Interpretation Comments POC-GLUCOSE METER 118 mg/dL 70-[address] [facility] 6720 (BEAKER) (test code = TISHA Cazares [facility] 1538) [address] POCT-GLUCOSE [id number] 18:51:00 Test Item Value Reference Range Interpretation Comments POC-GLUCOSE METER 117 mg/dL 70-[address] [facility] 6720 (BEAKER) (test code = [facility]age [facility] 1538) [address] POCT-GLUCOSE [id number] 14:02:00 Test Item Value Reference Range Interpretation Comments POC-GLUCOSE METER 129 mg/dL 70-[address] [facility] 6720 (BEAKER) (test code = [facility] 1538) [address] [id number] 04:19:00 Test Item Value Reference Range Interpretation Comments MAGNESIUM (BEAKER) (test code = 1.8 mg/dL 1.6-2.6 627) BASIC METABOLIC [id number] 04:19:00 Test Item Value Reference Range Interpretation [...] S NOT APPLICABLE FOR DIALYSIS PATIEN TS. [id number] 04:13:00 Test Item Value Reference Range Interpretation [...] heart valves.Prior to initiating heparinPrior to initiating [id number] 04:13:00 Test Item Value Reference Range Interpretation Comments PARTIAL THROMBOPLASTIN TIME 42.4 seconds 22.5-36.0 H (BEAKER) (test code = 760) LACTIC ACID, ARTERIAL, WHOLE [id number] 04:09:00 Test Item Value Reference Range Interpretation [...] 0-0 (BEAKER) (test code = 413) CALCIUM, [id number] 03:54:00 Test Item Value Reference Range Interpretation Comments CALCIUM IONIZED (BEAKER) (test 1.14 mmol/L 1.12-1.27 code = 698) PH, BLOOD (BEAKER) (test code = 7.49 1810) BLOOD GAS, [id number] 03:54:00 Test Item Value Reference Range Interpretation [...] (test code = 1819) 36.0 % POCT-GLUCOSE [id number] 17:32:00 Test Item Value Reference Range Interpretation Comments POC-GLUCOSE METER 121 mg/dL 70-110 H TESTED AT [place] [address] ([facility]) (test code = TISHA Cazares [facility] 1538) [address] PLATELET AGGREGATION: FUNCTION [id number] 14:46:00 Test Item Value Reference Range Interpretation Comments WEAK ADP 82 % 60-91 RESULT([facility]) (test code = 2135) PLATELET FUNCTION 60-100% indicates SCREEN INTERP ([facility]) normal platelet (test code = 2173) function [id number] Mari Phelan MD ([facility]) (test code = (electronic signature) 3488) PLATELET COUNT AGG 221 K/CU MM 150-450 ([facility]) (test code = 2656) POCT-GLUCOSE [id number] 12:58:00 Test Item Value Reference Range Interpretation Comments POC-GLUCOSE METER 129 mg/dL 70-110 H TESTED AT [place] [address] ([facility]) (test code = TIS[place] 1538) [address] HEMOGLOBIN [id number] 09:09:00 Test Item Value Reference Range Interpretation Comments HEMOGLOBIN A1C (BEAKER) (test code = 5.1 % 4.3-6.1 368) BLOOD GAS, [id number] 06:57:00 Test Item Value Reference Range Interpretation [...] (test code = 1819) 40.0 % POCT-GLUCOSE [id number] 06:01:00 Test Item Value Reference Range Interpretation Comments POC-GLUCOSE METER 154 mg/dL 70-[address] [facility] 6720 (BEAKER) (test code = TISHA Cazares [facility] 1538) [address] [id number] 05:02:00 Test Item Value Reference Range Interpretation Comments MAGNESIUM (BEAKER) (test code = 2.0 mg/dL 1.6-2.6 627) BASIC METABOLIC [id number] 05:02:00 Test Item Value Reference Range Interpretation [...] S NOT APPLICABLE FOR DIALYSIS PATIEN TS. [id number] 04:56:00 Test Item Value Reference Range Interpretation [...] mechanical heart valves.CBC W/PLT COUNT & AUTO [id number] 04:54:00 Test Item Value Reference Range Interpretation [...] code = 2801) LACTIC ACID, ARTERIAL, WHOLE [id number] 04:39:00 Test Item Value Reference Range Interpretation Comments LACTATE BLOOD ARTERIAL (2) 1.2 mmol/L 0.5-2.2 (BEAKER) (test code = 2874) Effective 08/17/2015: Units/Reference Range ChangeNew: 0.5-2.2 mmol/L Previous: 5- 20 mg/dLCALCIUM, [id number] 04:11:00 Test Item Value Reference Range Interpretation Comments CALCIUM IONIZED (BEAKER) (test 1.17 mmol/L 1.12-1.27 code = 698) PH, BLOOD (BEAKER) (test code = 7.44 1810) BLOOD GAS, [id number] 04:11:00 Test Item Value Reference Range Interpretation [...] code = 1819) 40.0 % OXYGEN SATURATION, [id number] 04:09:00 Test Item Value Reference Range Interpretation Comments O2 SATURATION (MEASURED) (BEAKER) 80.7 % (test code = 1455) POCT-GLUCOSE [id number] 02:46:00 Test Item Value Reference Range Interpretation Comments POC-GLUCOSE METER 150 mg/dL 70-[address] [facility] 67 (BEAKER) (test code = TISHA Cazares [place] 1538) [address] POCT-GLUCOSE [id number] 18:29:00 Test Item Value Reference Range Interpretation Comments POC-GLUCOSE METER 111 mg/dL 70-110 H TESTED AT [place] [address] (BEAKER) (test code = ANTHONYHI Sage [facility] 1538) [address] [id number] 16:27:00 Test Item Value Reference Range Interpretation Comments POTASSIUM (BEAKER) (test code = 4.2 meq/L 3.5-5.1 379) [id number] 16:27:00 Test Item Value Reference Range Interpretation Comments MAGNESIUM (BEAKER) (test code = 2.1 mg/dL 1.6-2.6 627) [id number] 16:27:00 Test Item Value Reference Range Interpretation Comments SODIUM (BEAKER) (test code = 381) 141 meq/L 136-145 BASIC METABOLIC [id number] 16:27:00 Test Item Value Reference Range Interpretation [...] DIALYSIS PATIEN TS. LACTIC ACID, ARTERIAL, WHOLE [id number] 16:23:00 Test Item Value Reference Range Interpretation Comments LACTATE BLOOD 1.8 mmol/L 0.5-2.2 Specimen sligh tly ARTERIAL (2) (BEAKER) hemoly zed (test code = 2874) Effective 08/17/2015: Units/Reference Range ChangeNew: 0.5-2.2 mmol/L Previous: 5- 20 mg/dLPT/[id number] 16:18:00 Test Item Value Reference Range Interpretation [...] for patients with mechanical heart valves.HEMOGLOBIN AND [id number] 16:10:00 Test Item Value Reference Range Interpretation [...] (BEAKER) (test code = 413) BLOOD GAS, [id number] 16:03:00 Test Item Value Reference Range Interpretation [...] (test code = 1819) 60.0 % CALCIUM, [id number] 16:03:00 Test Item Value Reference Range Interpretation Comments CALCIUM IONIZED (BEAKER) (test 1.18 mmol/L 1.12-1.27 code = 698) PH, BLOOD (BEAKER) (test code = 7.36 1810) OXYGEN SATURATION, [id number] 16:02:00 Test Item Value Reference Range Interpretation Comments O2 SATURATION (MEASURED) ([facility]) 82.9 % (test code = 1455) [id number] 15:26:00 Test Item Value Reference Range Interpretation Comments ACTIVATED CLOTTING TIME 120 sec TEST ED AT [place] [address] ([facility]) (test code = TISHA [place] 441) [address] [id number] 15:26:00 Test Item Value Reference Range Interpretation Comments ACTIVATED CLOTTING TIME 802 sec TEST ED AT [place] [address] ([facility]) (test code = TISHA Cazares [place] 441) [address] [id number] 15:26:00 Test Item Value Reference Range Interpretation Comments ACTIVATED CLOTTING TIME 884 sec TEST ED AT [place] [address] ([facility]) (test code = TISHA Cazares [place] 441) [address] [id number] 15:26:00 Test Item Value Reference Range Interpretation Comments ACTIVATED CLOTTING TIME 621 sec TEST ED AT [place] [address] ([facility]) (test code = TISHA Cazares [place] 441) [address] THROMBOELASTOGRAPH (TEG)[id number] 14:00:00 Test Item Value Reference Range Interpretation Comments TEG ACTIVATED CLOTTING TIME 8.7 minutes 4.0-7.0 H ([facility]) (test code = 1407) TEG FIBRINOGEN ACTIVITY (AKER) 73.1 degrees 61.0-73.0 H (test code = 1408) TEG PLT. AGGREGATION (BEAKER) 70.6 MM 55.0-65.0 H (test code = 1409) TGH ACTIVATED CLOTTING TIME 8.7 minutes 4.0-7.0 H ([facility]) (test code = 1411) TGH FIBRINOGEN ACTIVITY (BEAKER) 73.0 degrees 61.0-73.0 (test code = 1412) TGH PLT. AGGREGATION (BEAKER) 69.3 MM 55.0-65.0 H (test code = 1413) [id number] 13:28:00 Test Item Value Reference Range Interpretation Comments FIBRINOGEN LEVEL (AKER) (test 458 mg/dl 225-434 H code = 658) [id number] 13:28:00 Test Item Value Reference Range Interpretation Comments PARTIAL THROMBOPLASTIN TIME 39.7 seconds 22.5-36.0 H (BEAKER) (test code = 760) PROTHROMBIN [id number] 13:27:00 Test Item Value Reference Range Interpretation Comments PROTIME (BEAKER) (test code = 17.4 seconds 11.7-14.7 H 759) INR (BEAKER) (test code = 370) 1.4 <=5.9 RECOMMENDED COUMADIN/WARFARIN INR THERAPY RANGESSTANDARD DOSE: 2.0 - 3.0 Includes: PROPHYLAXIS for venous thrombosis, systemic embolization; TREATMENT for venous thrombosis and/or pulmonary embolus.HIGH RISK: Target INR is 2.5-3.5 for patients with mechanical heart valves.PLATELET [id number] 13:21:00 Test Item Value Reference Range Interpretation Comments PLATELET COUNT 151 K/CU MM 150-450 Discordant re sult (BEAKER) (test code compared to previous = 756) result; clinica l correlation req uired. CALCIUM, [id number] 13:06:00 Test Item Value Reference Range Interpretation Comments CALCIUM IONIZED (BEAKER) (test 1.07 mmol/L 1.12-1.27 L code = 698) PH, BLOOD (BEAKER) (test code = 7.31 1810) SODIUM NA-STAT [id number] 13:05:00 Test Item Value Reference Range Interpretation Comments SODIUM (BEAKER) (test code = 381) 135 meq/L 135-148 POTASSIUM-STAT [id number] 13:05:00 Test Item Value Reference Range Interpretation Comments POTASSIUM (BEAKER) (test code = 4.4 meq/L 3.6-5.5 379) BLOOD GAS, [id number] 13:05:00 Test Item Value Reference Range Interpretation [...] (test code = 1819) 67.0 % GLUCOSE-STAT [id number] 13:05:00 Test Item Value Reference Range Interpretation Comments GLUCOSE RANDOM (BEAKER) (test code 145 mg/dL 70-110 H = 652) HGB/HCT (H&H) - STAT [id number] 13:05:00 Test Item Value Reference Range Interpretation Comments HEMOGLOBIN (BEAKER) (test code = 10.2 g/dL 13.0-16.8 L 410) HEMATOCRIT (BEAKER) (test code = 30.0 % 40.0-50.0 L 411) BLOOD GAS, [id number] 12:26:00 Test Item Value Reference Range Interpretation [...] (test code = 1819) 65.0 % GLUCOSE-STAT [id number] 12:26:00 Test Item Value Reference Range Interpretation Comments GLUCOSE RANDOM (BEAKER) (test code 132 mg/dL 70-110 H = 652) HGB/HCT (H&H) - STAT [id number] 12:26:00 Test Item Value Reference Range Interpretation Comments HEMOGLOBIN (BEAKER) (test code = 10.6 g/dL 13.0-16.8 L 410) HEMATOCRIT (BEAKER) (test code = 31.0 % 40.0-50.0 L 411) SODIUM NA-STAT [id number] 12:25:00 Test Item Value Reference Range Interpretation Comments SODIUM (BEAKER) (test code = 381) 136 meq/L 135-148 POTASSIUM-STAT [id number] 12:25:00 Test Item Value Reference Range Interpretation Comments POTASSIUM (BEAKER) (test code = 4.4 meq/L 3.6-5.5 379) BLOOD GAS, [id number] 12:03:00 Test Item Value Reference Range Interpretation [...] (test code = 1819) 65.0 % POTASSIUM-STAT [id number] 12:00:00 Test Item Value Reference Range Interpretation Comments POTASSIUM (BEAKER) (test code = 4.7 meq/L 3.6-5.5 379) BLOOD GAS, [id number] 12:00:00 Test Item Value Reference Range Interpretation [...] (test code = 1819) 65.0 % GLUCOSE-STAT [id number] 12:00:00 Test Item Value Reference Range Interpretation Comments GLUCOSE RANDOM (BEAKER) (test code 140 mg/dL 70-110 H = 652) HGB/HCT (H&H) - STAT [id number] 12:00:00 Test Item Value Reference Range Interpretation Comments HEMOGLOBIN (BEAKER) (test code = 10.4 g/dL 13.0-16.8 L 410) HEMATOCRIT (BEAKER) (test code = 31.0 % 40.0-50.0 L 411) SODIUM NA-STAT [id number] 12:00:00 Test Item Value Reference Range Interpretation Comments SODIUM (BEAKER) (test code = 381) 131 meq/L 135-148 L PLATELET AGGREGATION: FUNCTION [id number] 11:08:00 Test Item Value Reference Range Interpretation Comments WEAK ADP 76 % 60-91 RESULT(BEAKER) (test code = 2135) PLATELET FUNCTION 60-100% indicates SCREEN INTERP (BEAKER) normal platelet (test code = 2173) function [id number] Mari Phelan MD (BEAKER) (test code = (electronic signature) 1982) PLATELET COUNT AGG 222 K/CU MM 150-450 (BEAKER) (test code = 2656) for patients on clopidogrel in past two weeksHEMOGLOBIN [id number] 08:57:00 Test Item Value Reference Range Interpretation Comments HEMOGLOBIN A1C (BEAKER) (test code = 5.0 % 4.3-6.1 368) CBC W/PLT COUNT & AUTO [id number] 05:54:00 Test Item Value Reference Range Interpretation [...] 0-1 PERCENT (BEAKER) (test code = 2801) [id number] 05:37:00 Test Item Value Reference Range Interpretation Comments PARTIAL THROMBOPLASTIN TIME 56.5 seconds 22.5-36.0 H (BEAKER) (test code = 760) BASIC METABOLIC [id number] 05:33:00 Test Item Value Reference Range Interpretation [...] NOT APPLICABLE FOR DIALYSIS PATIEN TS. PROTHROMBIN [id number] 05:33:00 Test Item Value Reference Range Interpretation Comments PROTIME (BEAKER) (test code = 13.3 seconds 11.7-14.7 759) INR (BEAKER) (test code = 370) 1.0 <=5.9 RECOMMENDED COUMADIN/WARFARIN INR THERAPY RANGESSTANDARD DOSE: 2.0 - 3.0 Includes: PROPHYLAXIS for venous thrombosis, systemic embolization; TREATMENT for venous thrombosis and/or pulmonary embolus.HIGH RISK: Target INR is 2.5-3.5 for patients with mechanical heart valves.[id number] 19:22:00 Test Item Value Reference Range Interpretation Comments PARTIAL THROMBOPLASTIN TIME 37.4 seconds 22.5-36.0 H (BEAKER) (test code = 760) PROTHROMBIN TIME/[id number] 19:21:00 Test Item Value Reference Range Interpretation Comments PROTIME (BEAKER) (test code = 12.8 seconds 11.7-14.7 759) INR (BEAKER) (test code = 370) 1.0 <=5.9 RECOMMENDED COUMADIN/WARFARIN INR THERAPY RANGESSTANDARD DOSE: 2.0 - 3.0 Includes: PROPHYLAXIS for venous thrombosis, systemic embolization; TREATMENT for venous thrombosis and/or pulmonary embolus.HIGH RISK: Target INR is 2.5-3.5 for patients with mechanical heart valves.[id number] 11:49:00 Test Item Value Reference Range Interpretation Comments PARTIAL THROMBOPLASTIN TIME 34.7 seconds 22.5-36.0 (BEAKER) (test code = 760) Prior to initiating heparinPLATELET [id number] 11:31:00 Test Item Value Reference Range Interpretation Comments PLATELET COUNT (BEAKER) (test 199 K/CU MM 150-450 code = 756) PLATELET AGGREGATION: FUNCTION [id number] 11:12:00 Test Item Value Reference Range Interpretation Comments WEAK ADP 90 % 60-91 RESULT(BEAKER) (test code = 2135) PLATELET FUNCTION 60-100% indicates SCREEN INTERP (BEAKER) normal platelet (test code = 2173) function [id number] Mari Phelan MD (BEAKER) (test code = (electronic signature) 9361) PLATELET COUNT AGG 200 K/CU MM 150-450 (BEAKER) (test code = 2656) HEMOGLOBIN [id number] 08:38:00 Test Item Value Reference Range Interpretation Comments HEMOGLOBIN A1C (BEAKER) (test code = 5.5 % 4.3-6.1 368) TROPONIN [id number] 08:35:00 Test Item Value Reference Range Interpretation [...] 0.0-4.9CK-MB Reference Range:<6.7 Normal6.7-10.0 Borderline>10.0 Abnormal POCT-GLUCOSE [id number] 08:23:00 Test Item Value Reference Range Interpretation Comments POC-GLUCOSE METER 104 mg/dL 70-[address] [facility] 6720 (BEAKER) (test code = TIS[place] 1538) [address] PROTHROMBIN [id number] 04:32:00 Test Item Value Reference Range Interpretation Comments PROTIME (BEAKER) (test code = 13.5 seconds 11.7-14.7 759) INR (BEAKER) (test code = 370) 1.0 <=5.9 RECOMMENDED COUMADIN/WARFARIN INR THERAPY RANGESSTANDARD DOSE: 2.0 - 3.0 Includes: PROPHYLAXIS for venous thrombosis, systemic embolization; TREATMENT for venous thrombosis and/or pulmonary embolus.HIGH RISK: Target INR is 2.5-3.5 for patients with mechanical heart valves.[id number] 02:13:00 Test Item Value Reference Range Interpretation Comments PHOSPHORUS (BEAKER) (test code = 3.9 mg/dL 2.3-4.7 604) [id number] 02:13:00 Test Item Value Reference Range Interpretation Comments MAGNESIUM (BEAKER) (test code = 2.1 mg/dL 1.6-2.6 627) BASIC METABOLIC [id number] 02:13:00 Test Item Value Reference Range Interpretation [...] PATIEN TS. CBC W/PLT COUNT & AUTO [id number] 01:44:00 Test Item Value Reference Range Interpretation [...] 0-1 PERCENT (BEAKER) (test code = 2801) [id number] 01:31:00 Test Item Value Reference Range Interpretation [...] 2.5-3.5 for patients with mechanical heart valves.TROPONIN [id number] 00:46:00 Test Item Value Reference Range Interpretation [...] Previous: 0.0-4.9CK-MB Reference Range:<6.7 Normal6.7-10.0 Borderline>10.0 Abnormal [id number] 06:58:00 Test Item Value Reference Range Interpretation Comments PHOSPHORUS (BEAKER) (test code = 3.7 mg/dL 2.3-4.7 604) [id number] 06:58:00 Test Item Value Reference Range Interpretation Comments MAGNESIUM (BEAKER) (test code = 1.9 mg/dL 1.6-2.6 627) BASIC METABOLIC [id number] 06:58:00 Test Item Value Reference Range Interpretation [...] S NOT APPLICABLE FOR DIALYSIS PATIEN TS. [id number] 06:36:00 Test Item Value Reference Range Interpretation Comments PHOSPHORUS (BEAKER) (test code = 4.1 mg/dL 2.3-4.7 604) [id number] 06:36:00 Test Item Value Reference Range Interpretation Comments MAGNESIUM (BEAKER) (test code = 2.0 mg/dL 1.6-2.6 627) BASIC METABOLIC [id number] 06:36:00 Test Item Value Reference Range Interpretation [...] S NOT APPLICABLE FOR DIALYSIS PATIEN TS. [id number] 15:50:00 Test Item Value Reference Range Interpretation Comments RPR SCREEN (BEAKER) (test code = Nonreactive Nonreactive 420) HEMOGLOBIN [id number] 10:29:00 Test Item Value Reference Range Interpretation Comments HEMOGLOBIN A1C (BEAKER) (test code = 5.4 % 4.3-6.1 368) VITAMIN B12 AND [id number] 09:21:00 Test Item Value Reference Range Interpretation Comments VITAMIN B12 (BEAKER) (test code = 335 pg/mL 213-816 774) FOLATE (BEAKER) (test code = 362) 36.6 ng/mL >=7.0 Effective 03/02/2014: Folate Reference Range ChangeNew: >=7.0 Previous: >=5.4CBC W/PLT COUNT & AUTO [id number] 08:15:00 Test Item Value Reference Range Interpretation [...] (test code = 417) 0.00TSH/FREE T4 IF [id number] 08:00:00 Test Item Value Reference Range Interpretation Comments THYROID STIMULATING HORMONE 1.39 uIU/mL 0.35-4.94 (BEAKER) (test code = 772) BASIC METABOLIC [id number] 07:26:00 Test Item Value Reference Range Interpretation [...] TO LUIS MIGUEL chan ESTIMATED GFR. LIPID [id number] 07:26:00 Test Item Value Reference Range Interpretation [...] (test code = 3.8 mg/dL 2.3-4.7 604) [id number] 07:25:00 Test Item Value Reference Range Interpretation Comments MAGNESIUM (BEAKER) (test code = 2.0 mg/dL 1.6-2.6 627) URINALYSIS W/ [id number] 19:16:00 Test Item Value Reference Range Interpretation [...] 520) SOURCE(BEAKER) (test code = Urine, Voided 2138) BLOOD [id number] 11:00:00 Test Item Value Reference Range Interpretation Comments CULTURE (BEAKER) (test No growth in 5 days code = 1095) BLOOD [id number] 11:00:00 Test Item Value Reference Range Interpretation Comments CULTURE (BEAKER) (test No growth in 5 days code = 1095) BASIC METABOLIC [id number] 05:33:00 Test Item Value Reference Range Interpretation [...] ESTIMATED GFR. CBC W/PLT COUNT & AUTO [id number] 05:04:00 Test Item Value Reference Range Interpretation [...] 0.00-0.20 (test code = 417) 0.00VANCOMYCIN LEVEL, [id number] 21:36:00 Test Item Value Reference Range Interpretation Comments VANCOMYCIN TROUGH (BEAKER) (test 9.5 ug/mL 10.0-20.0 L code = 522) Please draw prior to 4th vancomycin doseVITAMIN B12 AND [id number] 04:33:00 Test Item Value Reference Range Interpretation Comments VITAMIN B12 (BEAKER) (test code = 599 pg/mL 213-816 774) FOLATE (BEAKER) (test code = 362) 7.7 ng/mL >=7.0 Effective 03/02/2014: Folate Reference Range ChangeNew: >=7.0 Previous: >=5.4HEPATIC FUNCTION [id number] 03:58:00 Test Item Value Reference Range Interpretation [...] = 12 U/L 6-55 347) BASIC METABOLIC [id number] 03:58:00 Test Item Value Reference Range Interpretation [...] ESTIMATED GFR. CBC W/PLT COUNT & AUTO [id number] 03:45:00 Test Item Value Reference Range Interpretation [...] K/ L 0.00-0.20 (test code = 417) [id number] 03:18:00 Test Item Value Reference Range Interpretation Comments PARTIAL THROMBOPLASTIN TIME 42.6 seconds 22.5-36.0 H (BEAKER) (test code = 760) PROTHROMBIN [id number] 03:17:00 Test Item Value Reference Range Interpretation Comments PROTIME (BEAKER) (test code = 13.0 seconds 11.7-14.7 759) INR (BEAKER) (test code = 370) 1.0 <=5.9 RECOMMENDED COUMADIN/WARFARIN INR THERAPY RANGESSTANDARD DOSE: 2.0 - 3.0 Includes: PROPHYLAXIS for venous thrombosis, systemic embolization; TREATMENT for venous thrombosis and/or pulmonary embolus.HIGH RISK: Target INR is 2.5-3.5 for patients with mechanical heart valves.BASIC METABOLIC [id number] 02:48:00 Test Item Value Reference Range Interpretation [...] ESTIMATED GFR. CBC W/PLT COUNT & AUTO JBVGBAPKKSFB4197-68-97 02:47:00 Test Item Value Reference Range Interpretation [...] K/ L 0.00-0.20 (test code = 417) 0.06BGGRRBSQO6014-75-00 09:18:00 Test Item Value Reference Range Interpretation Comments Sodium Lvl (test code = Sodium Lvl) 146 135-145 H [facility] CenterWkytmfzWNRRDWOKC7481-26-72 09:18:00 Test Item Value Reference Range Interpretation Comments Potassium Lvl (test code = Potassium 4.0 3.5-5.1 N Lvl) [facility] CenterJrfcdmfDHVTBQBKZ5024-60-95 09:18:00 Test Item Value Reference Range Interpretation Comments BUN (test code = BUN) 11 7-22 N [facility] CenterTkvksjjEXDYXPCPU2830-66-12 09:18:00 Test Item Value Reference Range Interpretation Comments Glucose Lvl (test code = Glucose Lvl) 107 70-99 H [facility] CenterUmdnoblDRYNTXGGW5743-67-43 09:18:00 Test Item Value Reference Range Interpretation Comments Creatinine Lvl (test code = Creatinine 0.7 0.5-1.4 N Lvl) [facility]IifijcdGAWTTKKNVX6085-45-04 09:18:00 Test Item Value Reference Range Interpretation Comments RDW (test code = RDW) 13.6 11.5-14.5 N [facility] HospitalRbufarhJUPZJNPCKS5089-32-97 09:18:00 Test Item Value Reference Range Interpretation Comments MCV (test code = MCV) 98.9 80.0-94.0 H [facility] HospitalRrjqixgHVEFUESDKX4415-78-41 09:18:00 Test Item Value Reference Range Interpretation Comments Hct (test code = Hct) 38.8 42.0-54.0 L [facility] HospitalCfrgbktURMPOKUONX4963-05-15 09:18:00 Test Item Value Reference Range Interpretation Comments MPV (test code = MPV) 9.7 7.4-10.4 N [facility] HospitalElyvsvgXSZZVKBBVZ7917-73-20 09:18:00 Test Item Value Reference Range Interpretation Comments Platelet (test code = Platelet) 188 133-450 N [facility] HospitalWczxfgxFFQSBFUTTN2989-61-81 09:18:00 Test Item Value Reference Range Interpretation Comments MCHC (test code = MCHC) 34.5 32.0-36.0 N [facility] HospitalLnhlxwkTDULWUXABQ7473-05-03 09:18:00 Test Item Value Reference Range Interpretation Comments MCH (test code = MCH) 34.2 pg 27.0-31.0 H [facility] HospitalFuczrdnCKHIJGPDFT0993-85-72 09:18:00 Test Item Value Reference Range Interpretation Comments Hgb (test code = Hgb) 13.4 14.0-18.0 L [facility] HospitalNhxgwsnQXAUBQHGXI2646-52-57 09:18:00 Test Item Value Reference Range Interpretation Comments WBC (test code = WBC) 5.8 3.7-10.4 N [facility] HospitalDeqpsrsXMFLMLXAXT1162-65-50 09:18:00 Test Item Value Reference Range Interpretation Comments RBC (test code = RBC) 3.92 4.70-6.10 L [facility] HospitalCwwxemiQQUSYSURTR3197-63-46 09:18:00 Test Item Value Reference Range Interpretation Comments Monocytes # (test code 0.8 See_Comment N [Aut omated message] The = Monocytes #) system which generated this result tra nsmitted reference range : <=0.8. The reference r jessika was not used to int erpret this result as normal/abnormal . [facility] HospitalUhuabboOYGENXPJVO2723-41-27 09:18:00 Test Item Value Reference Range Interpretation Comments Lymphocytes # (test code = Lymphocytes 2.4 1.0-5.5 N #) [facility] HospitalEzwfncsWOVCTHFFDC5013-35-21 09:18:00 Test Item Value Reference Range Interpretation Comments Basophils # (test code 0.0 See_Comment N [Aut omated message] The = Basophils #) system which generated this result tra nsmitted reference range : <=0.2. The reference r jessika was not used to int erpret this result as normal/abnormal . [facility] HospitalMugqtpfCJFOOBFEUO1898-03-68 09:18:00 Test Item Value Reference Range Interpretation Comments Eosinophils # (test code 0.2 See_Comment N [A utomated message] The = Eosinophils #) system whic h generated this result tra nsmitted reference range : <=0.5. The reference r jessika was not used to int erpret this result as normal/abnormal . [facility] HospitalPmlbwqrCMFAZZVXUT9791-26-98 09:18:00 Test Item Value Reference Range Interpretation Comments Lymphocytes (test code = Lymphocytes) 41.3 20.0-40.0 H [facility] HospitalHcxmrmqYRWPSCNBKD4506-57-84 09:18:00 Test Item Value Reference Range Interpretation Comments Segs (test code = Segs) 41.0 45.0-75.0 L [facility] HospitalYhhrdeyFYMMNWRROZ3432-66-21 09:18:00 Test Item Value Reference Range Interpretation Comments Eosinophils (test code = 3.9 See_Comment N [A utomated message] The Eosinophils) system which ge nerated this result tra nsmitted reference range : <=4.0. The reference r jessika was not used to int erpret this result as normal/abnormal . [facility] HospitalNstbirnJFUJRYYRVU2441-61-19 09:18:00 Test Item Value Reference Range Interpretation Comments Segs-Bands # (test code = Segs-Bands #) 2.4 1.5-8.1 N [facility] HospitalUifdwupEVNLUNUMTQ2605-28-71 09:18:00 Test Item Value Reference Range Interpretation Comments Basophils (test code = 0.3 See_Comment N [Aut omated message] The Basophils) system which ge nerated this result tra nsmitted reference range : <=1.0. The reference r jessika was not used to int erpret this result as normal/abnormal . [facility] HospitalAptqwmmZBANOHSVEH7881-61-75 09:18:00 Test Item Value Reference Range Interpretation Comments Monocytes (test code = Monocytes) 13.5 2.0-12.0 H [facility] CenterZaglwzeDWGHDFNFI0985-55-36 09:18:00 Test Item Value Reference Range Interpretation Comments AGAP (test code = AGAP) 14.0 10.0-20.0 N [facility] CenterUoiqrhuGZIUCANRK5165-12-01 09:18:00 Test Item Value Reference Range Interpretation Comments Chloride Lvl (test code = Chloride Lvl) 110 95-109 H [facility] CenterAokhxbfVVBCHCIMN0838-95-74 09:18:00 Test Item Value Reference Range Interpretation Comments CO2 (test code = CO2) 26 24-32 N [facility] CenterXkvigwyNFQFBFFWB0623-70-86 09:18:00 Test Item Value Reference Range Interpretation Comments Calcium Lvl (test code = Calcium Lvl) 9.1 8.5-10.5 N [facility] CenterOllcbmgXPLXXQYIU8842-74-19 09:18:00 Test Item Value Reference Range Interpretation Comments Sodium Lvl (test code = Sodium Lvl) 146 135-145 H [facility] CenterCrconplUDPTUUUYF0459-70-18 09:18:00 Test Item Value Reference Range Interpretation Comments Potassium Lvl (test code = Potassium 4.0 3.5-5.1 N Lvl) [facility] CenterUpcgymlINCDCYJKZ0561-35-01 09:18:00 Test Item Value Reference Range Interpretation Comments BUN (test code = BUN) 11 7-22 N [facility] CenterYsoupyeVXZPESZMR7813-38-57 09:18:00 Test Item Value Reference Range Interpretation Comments Glucose Lvl (test code = Glucose Lvl) 107 70-99 H [facility] CenterKvjnzbkFCDIQCLAE6678-63-76 09:18:00 Test Item Value Reference Range Interpretation Comments Creatinine Lvl (test code = Creatinine 0.7 0.5-1.4 N Lvl) [facility] HospitalKcsgabwYGKTRUKDWZ2434-44-80 09:18:00 Test Item Value Reference Range Interpretation Comments RDW (test code = RDW) 13.6 11.5-14.5 N [facility] HospitalVjlmpqvTRCDOZDMIL6248-95-65 09:18:00 Test Item Value Reference Range Interpretation Comments MCV (test code = MCV) 98.9 80.0-94.0 H [facility] HospitalPwwwbgzIBTJYTKMNZ6026-55-30 09:18:00 Test Item Value Reference Range Interpretation Comments Hct (test code = Hct) 38.8 42.0-54.0 L [facility] HospitalUmwwgksZKRBGHTRRK4525-30-85 09:18:00 Test Item Value Reference Range Interpretation Comments MPV (test code = MPV) 9.7 7.4-10.4 N [facility] HospitalIiibjtoAPLMLDSZNN7827-34-09 09:18:00 Test Item Value Reference Range Interpretation Comments Platelet (test code = Platelet) 188 133-450 N [facility] HospitalHcmzvlqCGVENGKDYN5739-13-65 09:18:00 Test Item Value Reference Range Interpretation Comments MCHC (test code = MCHC) 34.5 32.0-36.0 N [facility] HospitalSdomodmMZSFXJHCDU7465-87-32 09:18:00 Test Item Value Reference Range Interpretation Comments MCH (test code = MCH) 34.2 pg 27.0-31.0 H [facility] HospitalUhtgjiyKYOQXLPSSC7703-72-77 09:18:00 Test Item Value Reference Range Interpretation Comments Hgb (test code = Hgb) 13.4 14.0-18.0 L [facility] HospitalIijghaiSLZSMQZDQH8775-58-32 09:18:00 Test Item Value Reference Range Interpretation Comments WBC (test code = WBC) 5.8 3.7-10.4 N [facility] HospitalJhqoeglUECEPALSLY5028-87-34 09:18:00 Test Item Value Reference Range Interpretation Comments RBC (test code = RBC) 3.92 4.70-6.10 L [facility] HospitalZkwfrxnSNNBOLLCUU9107-57-01 09:18:00 Test Item Value Reference Range Interpretation Comments Monocytes # (test code 0.8 See_Comment N [Aut omated message] The = Monocytes #) system which generated this result tra nsmitted reference range : <=0.8. The reference r jessika was not used to int erpret this result as normal/abnormal . [facility] HospitalRnevxipTEMJGYTWYJ1442-84-45 09:18:00 Test Item Value Reference Range Interpretation Comments Lymphocytes # (test code = Lymphocytes 2.4 1.0-5.5 N #) [facility] HospitalFyerwzaVEUCDMNICX5590-68-81 09:18:00 Test Item Value Reference Range Interpretation Comments Basophils # (test code 0.0 See_Comment N [Aut omated message] The = Basophils #) system which generated this result tra nsmitted reference range : <=0.2. The reference r jessika was not used to int erpret this result as normal/abnormal . [facility] HospitalMqjvyhgTYQDFWEBKO7314-53-96 09:18:00 Test Item Value Reference Range Interpretation Comments Eosinophils # (test code 0.2 See_Comment N [A utomated message] The = Eosinophils #) system whic h generated this result tra nsmitted reference range : <=0.5. The reference r jessika was not used to int erpret this result as normal/abnormal . [facility] HospitalCcphiiiHSMISAWIBJ5572-33-02 09:18:00 Test Item Value Reference Range Interpretation Comments Lymphocytes (test code = Lymphocytes) 41.3 20.0-40.0 H [facility] HospitalCqydpdiUWUYTJEWTM7733-42-76 09:18:00 Test Item Value Reference Range Interpretation Comments Segs (test code = Segs) 41.0 45.0-75.0 L [facility] HospitalQyzwzjrKNXHRXYBJF6622-67-37 09:18:00 Test Item Value Reference Range Interpretation Comments Eosinophils (test code = 3.9 See_Comment N [A utomated message] The Eosinophils) system which ge nerated this result tra nsmitted reference range : <=4.0. The reference r jessika was not used to int erpret this result as normal/abnormal . [facility] HospitalNfscxqfNZNUXGWYIG2345-69-67 09:18:00 Test Item Value Reference Range Interpretation Comments Segs-Bands # (test code = Segs-Bands #) 2.4 1.5-8.1 N [facility] HospitalFzpqvagWTCKGWHGQY9683-26-90 09:18:00 Test Item Value Reference Range Interpretation Comments Basophils (test code = 0.3 See_Comment N [Aut omated message] The Basophils) system which ge nerated this result tra nsmitted reference range : <=1.0. The reference r jessika was not used to int erpret this result as normal/abnormal . [facility] HospitalIqduclgSCLEUUYZVH6646-77-69 09:18:00 Test Item Value Reference Range Interpretation Comments Monocytes (test code = Monocytes) 13.5 2.0-12.0 H [facility] CenterNroxsctTCZVVVMHN2661-25-49 09:18:00 Test Item Value Reference Range Interpretation Comments AGAP (test code = AGAP) 14.0 10.0-20.0 N [facility] CenterDjzkwmdZLSZTSSQR5747-63-07 09:18:00 Test Item Value Reference Range Interpretation Comments Chloride Lvl (test code = Chloride Lvl) 110 95-109 H [facility] CenterUjfidxdWYSOFZCTO5222-66-04 09:18:00 Test Item Value Reference Range Interpretation Comments CO2 (test code = CO2) 26 24-32 N [facility] CenterTgyeujdNMIBVQAGH3473-98-88 09:18:00 Test Item Value Reference Range Interpretation Comments Calcium Lvl (test code = Calcium Lvl) 9.1 8.5-10.5 N [facility] GLUCOSE XZDHYDJ6094-80-65 21:40:00 Test Item Value Reference Range Interpretation Comments Comment1 (test code = Comment1) Notify RN/ [facility] GLUCOSE DIMMOLQ4008-90-01 21:40:00 Test Item Value Reference Range Interpretation Comments Gluc POC Lifscn (test code = Gluc POC 121 70-99 H Lifscn) [facility] GLUCOSE DLTIPCD8408-97-25 21:40:00 Test Item Value Reference Range Interpretation Comments Comment1 (test code = Comment1) [facility] PVAQQER2713-65-45 21:40:00 Test Item Value Reference Range Interpretation Comments Gluc POC Lifscn (test code = Gluc POC 121 70-99 H Lifscn) [facility] CenterVgbifgpXQMOWCBZJ5302-35-97 10:14:00 Test Item Value Reference Range Interpretation Comments CO2 (test code = CO2) 30 24-32 N [facility] CenterGhmsbkeWQEORZWLT7030-61-40 10:14:00 Test Item Value Reference Range Interpretation Comments Calcium Lvl (test code = Calcium Lvl) 9.0 8.5-10.5 N [facility] CenterQvpijvtMWZDQDWJV8469-86-86 10:14:00 Test Item Value Reference Range Interpretation Comments Glucose Lvl (test code = Glucose Lvl) 86 70-99 N [facility] CenterWldlmebYDGYQYAZI3197-78-22 10:14:00 Test Item Value Reference Range Interpretation Comments Potassium Lvl (test code = Potassium 4.4 3.5-5.1 N Lvl) [facility] CenterScbrhrqAQVLOTRYP1699-54-73 10:14:00 Test Item Value Reference Range Interpretation Comments Chloride Lvl (test code = Chloride Lvl) 107 95-109 N [facility] CenterZumbnivRRNVOWIRH3229-75-70 10:14:00 Test Item Value Reference Range Interpretation Comments BUN (test code = BUN) 13 7-22 N [facility] CenterUdistwdTSHKBEVOK1206-12-17 10:14:00 Test Item Value Reference Range Interpretation Comments Creatinine Lvl (test code = Creatinine 0.7 0.5-1.4 N Lvl) [facility] CenterUjnmezzUXNJXHFKK7618-88-78 10:14:00 Test Item Value Reference Range Interpretation Comments Sodium Lvl (test code = Sodium Lvl) 144 135-145 N [facility] CenterMacggamVBHAIDXQX0692-95-89 10:14:00 Test Item Value Reference Range Interpretation Comments AGAP (test code = AGAP) 11.4 10.0-20.0 N [facility]HldcgnvAHMHSLURNP5954-91-86 10:14:00 Test Item Value Reference Range Interpretation Comments Basophils (test code = 0.5 See_Comment N [Aut omated message] The Basophils) system which ge nerated this result tra nsmitted reference range : <=1.0. The reference r jessika was not used to int erpret this result as normal/abnormal . [facility] HospitalIdlnfthOVGJDMCKEI4856-81-71 10:14:00 Test Item Value Reference Range Interpretation Comments Eosinophils (test code = 3.1 See_Comment N [A utomated message] The Eosinophils) system which ge nerated this result tra nsmitted reference range : <=4.0. The reference r jessika was not used to int erpret this result as normal/abnormal . [facility] HospitalGzunhbtGLCMEIYURC7253-28-27 10:14:00 Test Item Value Reference Range Interpretation Comments Segs-Bands # (test code = Segs-Bands #) 3.1 1.5-8.1 N [facility] HospitalZwrxnbhIFEYHSGNRH8794-76-43 10:14:00 Test Item Value Reference Range Interpretation Comments Lymphocytes # (test code = Lymphocytes 2.3 1.0-5.5 N #) [facility] HospitalRcipxgsYXNNXAXTIZ7651-43-07 10:14:00 Test Item Value Reference Range Interpretation Comments Monocytes # (test code 0.9 See_Comment H [Aut omated message] The = Monocytes #) system which generated this result tra nsmitted reference range : <=0.8. The reference r jessika was not used to int erpret this result as normal/abnormal . [facility] CenterQfcoompIYZQRIVNZ9733-15-50 10:14:00 Test Item Value Reference Range Interpretation Comments CO2 (test code = CO2) 30 24-32 N [facility] CenterKpbidlfMIHNREQDG6586-24-35 10:14:00 Test Item Value Reference Range Interpretation Comments Calcium Lvl (test code = Calcium Lvl) 9.0 8.5-10.5 N [facility] CenterCyobzsbFTHVQSETN3533-75-71 10:14:00 Test Item Value Reference Range Interpretation Comments Glucose Lvl (test code = Glucose Lvl) 86 70-99 N [facility] CenterJvebfysKUHZPJOKC2447-89-89 10:14:00 Test Item Value Reference Range Interpretation Comments Potassium Lvl (test code = Potassium 4.4 3.5-5.1 N Lvl) [facility] HospitalUtkijqcBKTDBMNBAH0352-44-48 10:14:00 Test Item Value Reference Range Interpretation Comments Segs (test code = Segs) 48.3 45.0-75.0 N [facility] CenterPirohemBZJALOXAC5257-05-09 10:14:00 Test Item Value Reference Range Interpretation Comments Chloride Lvl (test code = Chloride Lvl) 107 95-109 N [facility] CenterKmzfyzaEYMXDWYVB6706-47-67 10:14:00 Test Item Value Reference Range Interpretation Comments BUN (test code = BUN) 13 7-22 N [facility] CenterLnmcivlXFOTULKDV7736-38-65 10:14:00 Test Item Value Reference Range Interpretation Comments Creatinine Lvl (test code = Creatinine 0.7 0.5-1.4 N Lvl) [facility] CenterLqaizqoDGXERSTBI0792-75-62 10:14:00 Test Item Value Reference Range Interpretation Comments Sodium Lvl (test code = Sodium Lvl) 144 135-145 N [facility] CenterUxorerkKBQHHTHUY8722-29-85 10:14:00 Test Item Value Reference Range Interpretation Comments AGAP (test code = AGAP) 11.4 10.0-20.0 N [facility] HospitalJlnswwsNKLLQCUCTE9711-08-78 10:14:00 Test Item Value Reference Range Interpretation Comments Basophils (test code = 0.5 See_Comment N [Aut omated message] The Basophils) system which ge nerated this result tra nsmitted reference range : <=1.0. The reference r jessika was not used to int erpret this result as normal/abnormal . [facility] HospitalQbnojhlCCSGFOGEJS5297-89-91 10:14:00 Test Item Value Reference Range Interpretation Comments Eosinophils (test code = 3.1 See_Comment N [A utomated message] The Eosinophils) system which ge nerated this result tra nsmitted reference range : <=4.0. The reference r jessika was not used to int erpret this result as normal/abnormal . [facility] HospitalQfjqqeoVDGBGICMPQ8386-19-47 10:14:00 Test Item Value Reference Range Interpretation Comments Segs-Bands # (test code = Segs-Bands #) 3.1 1.5-8.1 N [facility] HospitalXkmsiwkBLLNQWTIEG6666-92-45 10:14:00 Test Item Value Reference Range Interpretation Comments Lymphocytes # (test code = Lymphocytes 2.3 1.0-5.5 N #) [facility] HospitalSnvjwyxRMSRHVNOOX4648-90-15 10:14:00 Test Item Value Reference Range Interpretation Comments Monocytes # (test code 0.9 See_Comment H [Aut omated message] The = Monocytes #) system which generated this result tra nsmitted reference range : <=0.8. The reference r jessika was not used to int erpret this result as normal/abnormal . [facility] HospitalEsfvqrcROAKDBZVHJ8465-79-53 10:14:00 Test Item Value Reference Range Interpretation Comments Lymphocytes (test code = Lymphocytes) 34.9 20.0-40.0 N [facility] HospitalZrqsmrhJARGVFAVNK8856-63-26 10:14:00 Test Item Value Reference Range Interpretation Comments Segs (test code = Segs) 48.3 45.0-75.0 N [facility] HospitalJquxrsjXCOVFXSDJL5964-80-99 10:14:00 Test Item Value Reference Range Interpretation Comments Lymphocytes (test code = Lymphocytes) 34.9 20.0-40.0 N [facility] HospitalMeahcfiGTEKSZWRWW5970-47-86 10:14:00 Test Item Value Reference Range Interpretation Comments Macrocyte (test code = 1+ *ABN*(09/25/2011 A Macrocyte) 05:14:00) [facility] HospitalEwarettRKCSSVFIZO9185-69-64 10:14:00 Test Item Value Reference Range Interpretation Comments Eosinophils # (test code 0.2 See_Comment N [A utomated message] The = Eosinophils #) system whic h generated this result tra nsmitted reference range : <=0.5. The reference r jessika was not used to int erpret this result as normal/abnormal . [facility] HospitalTrghobtRXEKTJBQDP8128-88-17 10:14:00 Test Item Value Reference Range Interpretation Comments Monocytes (test code = Monocytes) 13.2 2.0-12.0 H [facility] HospitalYlienrhRJITQPXTQD6093-73-88 10:14:00 Test Item Value Reference Range Interpretation Comments Basophils # (test code 0.0 See_Comment N [Aut omated message] The = Basophils #) system which generated this result tra nsmitted reference range : <=0.2. The reference r jessika was not used to int erpret this result as normal/abnormal . [facility] HospitalRulrfltWWMMTBHQVX2637-61-31 10:14:00 Test Item Value Reference Range Interpretation Comments MPV (test code = MPV) 9.1 7.4-10.4 N [facility] HospitalNvyicfgCCUPSIUMLP1851-88-70 10:14:00 Test Item Value Reference Range Interpretation Comments Platelet (test code = Platelet) 183 133-450 N [facility] HospitalIyesryxGMURWSHNNI3695-63-76 10:14:00 Test Item Value Reference Range Interpretation Comments RDW (test code = RDW) 14.3 11.5-14.5 N [facility] HospitalXaedhigVZSFXLZNQW3109-78-42 10:14:00 Test Item Value Reference Range Interpretation Comments MCHC (test code = MCHC) 34.1 32.0-36.0 N [facility] HospitalDotndwfMDNMNEXNOI8004-15-21 10:14:00 Test Item Value Reference Range Interpretation Comments Macrocyte (test code = 1+ *ABN*(09/25/2011 A Macrocyte) 05:14:00) [facility] HospitalMfunlrgIYODUNTDNB5279-27-54 10:14:00 Test Item Value Reference Range Interpretation Comments Hct (test code = Hct) 42.1 42.0-54.0 N [facility] HospitalQbpzwnhFAYIGLQQEC5099-25-76 10:14:00 Test Item Value Reference Range Interpretation Comments Hgb (test code = Hgb) 14.4 14.0-18.0 N [facility] HospitalAgyihzmXOZMSQJARZ6625-00-12 10:14:00 Test Item Value Reference Range Interpretation Comments WBC (test code = WBC) 6.4 3.7-10.4 N [facility] HospitalIgaexkfVUASCGSVIJ9982-56-30 10:14:00 Test Item Value Reference Range Interpretation Comments MCV (test code = MCV) 99.3 80.0-94.0 H [facility] HospitalTqewvlpNQJCYQDOCN6300-70-59 10:14:00 Test Item Value Reference Range Interpretation Comments RBC (test code = RBC) 4.24 4.70-6.10 L [facility] HospitalInvvoeeWFQCQVGMTG5528-35-68 10:14:00 Test Item Value Reference Range Interpretation Comments MCH (test code = MCH) 33.9 pg 27.0-31.0 H [facility] HospitalKbhxbzlBPEVYRYJUP4908-40-24 10:14:00 Test Item Value Reference Range Interpretation Comments Eosinophils # (test code 0.2 See_Comment N [A utomated message] The = Eosinophils #) system whic h generated this result tra nsmitted reference range : <=0.5. The reference r jessika was not used to int erpret this result as normal/abnormal . [facility] HospitalPnxxalwHZLSVEGTGF0984-19-31 10:14:00 Test Item Value Reference Range Interpretation Comments Monocytes (test code = Monocytes) 13.2 2.0-12.0 H [facility] HospitalQowjlitKTBOFRTCCV1177-92-52 10:14:00 Test Item Value Reference Range Interpretation Comments Basophils # (test code 0.0 See_Comment N [Aut omated message] The = Basophils #) system which generated this result tra nsmitted reference range : <=0.2. The reference r jessika was not used to int erpret this result as normal/abnormal . [facility] HospitalIvionsbXXQYBCFHYF6773-44-29 10:14:00 Test Item Value Reference Range Interpretation Comments MPV (test code = MPV) 9.1 7.4-10.4 N [facility] [facility]QbnbadoWCGHGJRIOI4401-39-64 10:14:00 Test Item Value Reference Range Interpretation Comments Platelet (test code = Platelet) 183 133-450 N [facility] HospitalNptxbuoVRJMLNAADH5316-02-77 10:14:00 Test Item Value Reference Range Interpretation Comments RDW (test code = RDW) 14.3 11.5-14.5 N [facility] HospitalDwdzdwgQCIRWZOYLS1224-80-14 10:14:00 Test Item Value Reference Range Interpretation Comments MCHC (test code = MCHC) 34.1 32.0-36.0 N [facility] HospitalJakxhwcODSBGLCBAZ8249-88-79 10:14:00 Test Item Value Reference Range Interpretation Comments Hct (test code = Hct) 42.1 42.0-54.0 N [facility] HospitalWxvhmozGGESAVBCTX3131-54-12 10:14:00 Test Item Value Reference Range Interpretation Comments Hgb (test code = Hgb) 14.4 14.0-18.0 N [facility] HospitalFfgzeywIMBXDILMHU3024-35-44 10:14:00 Test Item Value Reference Range Interpretation Comments WBC (test code = WBC) 6.4 3.7-10.4 N [facility] HospitalSfgbmweLDDJLNRARU5420-47-08 10:14:00 Test Item Value Reference Range Interpretation Comments MCV (test code = MCV) 99.3 80.0-94.0 H [facility] HospitalFitbfkiPTTZWHWOVA1435-02-66 10:14:00 Test Item Value Reference Range Interpretation Comments RBC (test code = RBC) 4.24 4.70-6.10 L [facility] HospitalLfpzrqtVUCZWZXRAO2171-30-63 10:14:00 Test Item Value Reference Range Interpretation Comments MCH (test code = MCH) 33.9 pg 27.0-31.0 H [facility] CenterPztflgzLTCFERXNP5542-05-44 09:04:00 Test Item Value Reference Range Interpretation Comments CO2 (test code = CO2) 25 24-32 N [facility] CenterWvesozrIYVPPJTRK7335-33-25 09:04:00 Test Item Value Reference Range Interpretation Comments Calcium Lvl (test code = Calcium Lvl) 9.0 8.5-10.5 N [facility] CenterJzhuqvqMGBBHAEZP6787-23-18 09:04:00 Test Item Value Reference Range Interpretation Comments AGAP (test code = AGAP) 13.1 10.0-20.0 N [facility] HospitalDenquppUEYHVHFNTE1424-17-58 09:04:00 Test Item Value Reference Range Interpretation Comments Macrocyte (test code = 1+ *ABN*(09/18/2011 A Macrocyte) 04:04:00) [facility] HospitalPhftggfUUXZFAZTZR5730-32-94 09:04:00 Test Item Value Reference Range Interpretation Comments Monocytes # (test code 0.9 See_Comment H [Aut omated message] The = Monocytes #) system which generated this result tra nsmitted reference range : <=0.8. The reference r jessika was not used to int erpret this result as normal/abnormal . [facility] HospitalYrftqejYIWVYQXYZN5383-32-16 09:04:00 Test Item Value Reference Range Interpretation Comments Lymphocytes # (test code = Lymphocytes 2.1 1.0-5.5 N #) [facility] HospitalVmliokcMSUZWEXPFV3082-69-01 09:04:00 Test Item Value Reference Range Interpretation Comments Segs (test code = Segs) 54.6 45.0-75.0 N [facility] HospitalRsuzgobSENHSZAQZB7675-93-83 09:04:00 Test Item Value Reference Range Interpretation Comments Eosinophils # (test code 0.2 See_Comment N [A utomated message] The = Eosinophils #) system whic h generated this result tra nsmitted reference range : <=0.5. The reference r jessika was not used to int erpret this result as normal/abnormal . [facility] HospitalAlgjoyvDTZAEDKQVA3080-77-65 09:04:00 Test Item Value Reference Range Interpretation Comments Eosinophils (test code = 2.3 See_Comment N [A utomated message] The Eosinophils) system which ge nerated this result tra nsmitted reference range : <=4.0. The reference r jessika was not used to int erpret this result as normal/abnormal . [facility] HospitalYqldppiWJXIKDQHLK7167-15-11 09:04:00 Test Item Value Reference Range Interpretation Comments Monocytes (test code = Monocytes) 12.9 2.0-12.0 H [facility] HospitalIhwyljkEVDRQPIUBX0325-36-99 09:04:00 Test Item Value Reference Range Interpretation Comments Lymphocytes (test code = Lymphocytes) 29.9 20.0-40.0 N [facility] HospitalPbydkpuTGYUYJGUZB3009-93-97 09:04:00 Test Item Value Reference Range Interpretation Comments Basophils (test code = 0.3 See_Comment N [Aut omated message] The Basophils) system which ge nerated this result tra nsmitted reference range : <=1.0. The reference r jessika was not used to int erpret this result as normal/abnormal . [facility] HospitalOajenfpZQMFKHZJMM4981-30-47 09:04:00 Test Item Value Reference Range Interpretation Comments Basophils # (test code 0.0 See_Comment N [Aut omated message] The = Basophils #) system which generated this result tra nsmitted reference range : <=0.2. The reference r jessika was not used to int erpret this result as normal/abnormal . [facility] HospitalClouczfARPTXVFXWL6436-22-11 09:04:00 Test Item Value Reference Range Interpretation Comments Segs-Bands # (test code = Segs-Bands #) 3.8 1.5-8.1 N [facility] HospitalPgtlkucSNKCYYSCNJ4562-33-98 09:04:00 Test Item Value Reference Range Interpretation Comments Hct (test code = Hct) 43.5 42.0-54.0 N [facility] HospitalCynlufvTSPGMIPCNM6026-83-97 09:04:00 Test Item Value Reference Range Interpretation Comments MCV (test code = MCV) 99.4 80.0-94.0 H [facility] HospitalOqqjruhEJYBXBHCJM5475-37-53 09:04:00 Test Item Value Reference Range Interpretation Comments Hgb (test code = Hgb) 14.8 14.0-18.0 N [facility] HospitalBebgcnnRRIWECGVWY7865-79-58 09:04:00 Test Item Value Reference Range Interpretation Comments RBC (test code = RBC) 4.37 4.70-6.10 L [facility] HospitalNrrsdxjIAXHNDBQGD0245-75-72 09:04:00 Test Item Value Reference Range Interpretation Comments WBC (test code = WBC) 6.9 3.7-10.4 N [facility] HospitalPhfeoqmHKNZQVQIXL5098-67-82 09:04:00 Test Item Value Reference Range Interpretation Comments Platelet (test code = Platelet) 178 133-450 N [facility] HospitalVvhczjrBHWZHGYTNO9209-73-68 09:04:00 Test Item Value Reference Range Interpretation Comments MCHC (test code = MCHC) 34.2 32.0-36.0 N [facility] HospitalBshkgcgWDZSRXWMAO5364-41-71 09:04:00 Test Item Value Reference Range Interpretation Comments MPV (test code = MPV) 9.1 7.4-10.4 N [facility] HospitalSahwmdlTSBVOMKXCI1943-70-11 09:04:00 Test Item Value Reference Range Interpretation Comments RDW (test code = RDW) 13.9 11.5-14.5 N [facility] HospitalGywotsiEBEJPINVHG5143-23-83 09:04:00 Test Item Value Reference Range Interpretation Comments MCH (test code = MCH) 33.9 pg 27.0-31.0 H [facility] CenterYdvdzcsUBJBMJPYG7668-63-02 09:04:00 Test Item Value Reference Range Interpretation Comments Glucose Lvl (test code = Glucose Lvl) 95 70-99 N [facility] CenterHfcbmafVHZBSVKYI9246-95-75 09:04:00 Test Item Value Reference Range Interpretation Comments BUN (test code = BUN) 9 7-22 N [facility] CenterJowjscsUFQVZPTTR8688-27-87 09:04:00 Test Item Value Reference Range Interpretation Comments Creatinine Lvl (test code = Creatinine 0.6 0.5-1.4 N Lvl) [facility] CenterWpzkcrwWPJCDGUHJ9749-00-21 09:04:00 Test Item Value Reference Range Interpretation Comments Sodium Lvl (test code = Sodium Lvl) 141 135-145 N [facility] CenterRrjriykHDEMBEKTP8428-09-32 09:04:00 Test Item Value Reference Range Interpretation Comments Potassium Lvl (test code = Potassium 4.1 3.5-5.1 N Lvl) [facility] CenterKwwclveZVQULDMXI4903-52-54 09:04:00 Test Item Value Reference Range Interpretation Comments Chloride Lvl (test code = Chloride Lvl) 107 95-109 N [facility] CenterBwnkhenJQHBYJXKP0216-86-62 09:04:00 Test Item Value Reference Range Interpretation Comments Calcium Lvl (test code = Calcium Lvl) 9.0 8.5-10.5 N [facility] CenterOtrwpjcEILECLPRL2201-61-06 09:04:00 Test Item Value Reference Range Interpretation Comments AGAP (test code = AGAP) 13.1 10.0-20.0 N [facility] HospitalGphaqkjNTFSDAUVNR4772-53-46 09:04:00 Test Item Value Reference Range Interpretation Comments Macrocyte (test code = 1+ *ABN*(09/18/2011 A Macrocyte) 04:04:00) [facility] HospitalXhvbeevUVIXHUCYHS5329-38-21 09:04:00 Test Item Value Reference Range Interpretation Comments Monocytes # (test code 0.9 See_Comment H [Aut omated message] The = Monocytes #) system which generated this result tra nsmitted reference range : <=0.8. The reference r jessika was not used to int erpret this result as normal/abnormal . [facility] HospitalUmtjlcjDWFVUWLGUZ4353-48-16 09:04:00 Test Item Value Reference Range Interpretation Comments Lymphocytes # (test code = Lymphocytes 2.1 1.0-5.5 N #) [facility] HospitalPjdbptlHKTFRFDEAH0446-30-41 09:04:00 Test Item Value Reference Range Interpretation Comments Segs (test code = Segs) 54.6 45.0-75.0 N [facility] HospitalFvixqusWEQFENWNAJ1442-17-50 09:04:00 Test Item Value Reference Range Interpretation Comments Eosinophils # (test code 0.2 See_Comment N [A utomated message] The = Eosinophils #) system whic h generated this result tra nsmitted reference range : <=0.5. The reference r jessika was not used to int erpret this result as normal/abnormal . [facility] HospitalRlqwropOFAUODYTWR4988-76-17 09:04:00 Test Item Value Reference Range Interpretation Comments Eosinophils (test code = 2.3 See_Comment N [A utomated message] The Eosinophils) system which ge nerated this result tra nsmitted reference range : <=4.0. The reference r jessika was not used to int erpret this result as normal/abnormal . [facility] HospitalOlydznrTJZPTPIQKR1786-34-34 09:04:00 Test Item Value Reference Range Interpretation Comments Monocytes (test code = Monocytes) 12.9 2.0-12.0 H [facility] HospitalMvoeycfJRWCNEVPNJ4520-43-21 09:04:00 Test Item Value Reference Range Interpretation Comments Lymphocytes (test code = Lymphocytes) 29.9 20.0-40.0 N [facility] HospitalEtqaezjIJEYPQTKZA1544-87-71 09:04:00 Test Item Value Reference Range Interpretation Comments Basophils (test code = 0.3 See_Comment N [Aut omated message] The Basophils) system which ge nerated this result tra nsmitted reference range : <=1.0. The reference r jessika was not used to int erpret this result as normal/abnormal . [facility] HospitalPohnazxRIRRZXZPEP2816-86-87 09:04:00 Test Item Value Reference Range Interpretation Comments Basophils # (test code 0.0 See_Comment N [Aut omated message] The = Basophils #) system which generated this result tra nsmitted reference range : <=0.2. The reference r jessika was not used to int erpret this result as normal/abnormal . [facility] HospitalLzhsnbjTLNUUOZBHY6113-82-28 09:04:00 Test Item Value Reference Range Interpretation Comments Segs-Bands # (test code = Segs-Bands #) 3.8 1.5-8.1 N [facility] HospitalRkccxtrNXJBXZMEBA7947-86-42 09:04:00 Test Item Value Reference Range Interpretation Comments Hct (test code = Hct) 43.5 42.0-54.0 N [facility] HospitalWnmvfrxBZWYFRHXFV6034-61-32 09:04:00 Test Item Value Reference Range Interpretation Comments MCV (test code = MCV) 99.4 80.0-94.0 H [facility] HospitalRbrpdluWGQPBCTLER6062-79-57 09:04:00 Test Item Value Reference Range Interpretation Comments Hgb (test code = Hgb) 14.8 14.0-18.0 N [facility] HospitalWjshipdOJRPKKAADV7148-27-46 09:04:00 Test Item Value Reference Range Interpretation Comments RBC (test code = RBC) 4.37 4.70-6.10 L [facility] HospitalHhlqzdeDECVPDFMHO0882-91-69 09:04:00 Test Item Value Reference Range Interpretation Comments WBC (test code = WBC) 6.9 3.7-10.4 N [facility] HospitalMbzwsafKFBNYWOEXT1934-86-19 09:04:00 Test Item Value Reference Range Interpretation Comments Platelet (test code = Platelet) 178 133-450 N [facility] HospitalVzeifocEZKLPITBHC6022-60-95 09:04:00 Test Item Value Reference Range Interpretation Comments MCHC (test code = MCHC) 34.2 32.0-36.0 N [facility] HospitalKukbmzjFQXPBPTLNX0260-34-24 09:04:00 Test Item Value Reference Range Interpretation Comments MPV (test code = MPV) 9.1 7.4-10.4 N [facility] HospitalOnyiwskNLTKIZDOSZ5515-11-57 09:04:00 Test Item Value Reference Range Interpretation Comments RDW (test code = RDW) 13.9 11.5-14.5 N [facility] HospitalRpnolacZWLPGMJBMG3528-83-56 09:04:00 Test Item Value Reference Range Interpretation Comments MCH (test code = MCH) 33.9 pg 27.0-31.0 H [facility] CenterSodfptaDIGMSRFWG2598-53-38 09:04:00 Test Item Value Reference Range Interpretation Comments Glucose Lvl (test code = Glucose Lvl) 95 70-99 N [facility] CenterNhpyfwlLKZBHGTYY9376-42-09 09:04:00 Test Item Value Reference Range Interpretation Comments BUN (test code = BUN) 9 7-22 N [facility] CenterNldusgeACWFCEFBW4132-43-65 09:04:00 Test Item Value Reference Range Interpretation Comments Creatinine Lvl (test code = Creatinine 0.6 0.5-1.4 N Lvl) [facility] CenterUbelmccLWVSQXRWO3085-54-57 09:04:00 Test Item Value Reference Range Interpretation Comments Sodium Lvl (test code = Sodium Lvl) 141 135-145 N [facility] CenterFmoipzlZWUQUSTPB8015-12-32 09:04:00 Test Item Value Reference Range Interpretation Comments Potassium Lvl (test code = Potassium 4.1 3.5-5.1 N Lvl) [facility] CenterCxohiqbNRPLIGIDY6632-96-82 09:04:00 Test Item Value Reference Range Interpretation Comments Chloride Lvl (test code = Chloride Lvl) 107 95-109 N [facility] CenterPokfvdzYCAPMHYZO0945-91-74 09:04:00 Test Item Value Reference Range Interpretation Comments CO2 (test code = CO2) 25 24-32 N [facility]NzyhfthVwvvkpxxmosz3668-28-06 14:00:00 Test Item Value Reference Range Interpretation Comments Culture: Urine (test code = Culture: U[facility]) [facility] 14:00:00 Test Item Value Reference Range Interpretation Comments Culture: Urine (test code = Culture: Urine) [facility] CenterSdrqcgaIWSMKGRQHA0431-48-89 13:25:00 Test Item Value Reference Range Interpretation Comments UA RBC (test code = 1 See_Comment N [Automa lorie message] The UA RBC) system which ge nerated this result transmit lorie reference range : <=2. The reference range was not used to interpr et this result as asher l/abnormal. [facility]CjinrpdISQAEUNQHP2729-97-22 13:25:00 Test Item Value Reference Range Interpretation Comments UA Mucus (test code = Few /LPF UA Mucus) *NA*(09/16/2011 08:25:00) [facility] HospitalEnfzgngCVBFSOVDMK4234-43-67 13:25:00 Test Item Value Reference Range Interpretation Comments UA Ketones (test code Negative mg/dL = UA Ketones) *NA*(09/16/2011 08:25:00) [facility] HospitalAkhqnzfPARAHZRDGT5871-29-44 13:25:00 Test Item Value Reference Range Interpretation Comments UA Bili (test code = Negative *NA*(09/16/2011 UA Bili) 08:25:00) [facility] HospitalMjhgvquFECARAXAFI3477-91-44 13:25:00 Test Item Value Reference Range Interpretation Comments UA Blood (test code = Negative (09/16/2011 N UA Blood) 08:25:00) [facility] HospitalVwbuxztKVESNHMEOV5067-06-84 13:25:00 Test Item Value Reference Range Interpretation Comments UA Nitrite (test code Negative (09/16/2011 N = UA Nitrite) 08:25:00) [facility] HospitalIqskkldLXBTOVALPU9142-94-43 13:25:00 Test Item Value Reference Range Interpretation Comments UA Leuk Est (test Negative (09/16/2011 N code = UA Leuk Est) 08:25:00) [facility] HospitalSwixrcgRMBUXZUOVJ1393-78-06 13:25:00 Test Item Value Reference Range Interpretation Comments UA Sq Epi (test code Occasional /LPF = UA Sq Epi) *NA*(09/16/2011 08:25:00) [facility] HospitalLiggdxbXWAZYGEGHY1457-04-44 13:25:00 Test Item Value Reference Range Interpretation Comments UA Glucose (test code Negative mg/dL = UA Glucose) *NA*(09/16/2011 08:25:00) [facility] HospitalLmignxfQKMMXSDCYF3894-99-90 13:25:00 Test Item Value Reference Range Interpretation Comments UA Protein (test code Negative mg/dL N = UA Protein) (09/16/2011 08:25:00) [facility] HospitalBhtpinqOHNLLTFZXR2833-78-15 13:25:00 Test Item Value Reference Range Interpretation Comments UA Color (test code = Yellow *NA*(09/16/2011 UA Color) 08:25:00) [facility] HospitalCifvzrvFMQGUXJXLX0091-82-40 13:25:00 Test Item Value Reference Range Interpretation Comments UA pH (test code = UA pH) 5.5 5.0-8.0 N [facility] HospitalUuyfvwoOKVHIXBQUJ8289-24-17 13:25:00 Test Item Value Reference Range Interpretation Comments UA Spec Grav (test code = UA Spec Grav) 1.017 N [facility] HospitalTqozfqaNLTXQJTCKJ9885-58-55 13:25:00 Test Item Value Reference Range Interpretation Comments UA Turbidity (test code = Clear (09/16/2011 N UA Turbidity) 08:25:00) [facility] HospitalTfypcqtXXLMPDYXIR5350-36-68 13:25:00 Test Item Value Reference Range Interpretation Comments UA Urobilinogen (test code *NA*(09/16/2011 0.1-1.0 = UA Urobilinogen) 08:25:00) [facility] HospitalBfuckuoIKVYJHGFAK0692-85-92 13:25:00 Test Item Value Reference Range Interpretation Comments UA WBC (test code = no gt See_Comment N [Automa lorie message] The UA WBC) system which ge nerated this result transmit lorie reference range : <=5. The reference range was not used to interpr et this result as asher l/abnormal. [facility] HospitalNvcziejYODEOFJHQZ5539-69-20 13:25:00 Test Item Value Reference Range Interpretation Comments UA RBC (test code = 1 See_Comment N [Automa lorie message] The UA RBC) system which ge nerated this result transmit lorie reference range : <=2. The reference range was not used to interpr et this result as asher l/abnormal. [facility] HospitalAmdqrcvETLMXOWVGJ7914-22-54 13:25:00 Test Item Value Reference Range Interpretation Comments UA Mucus (test code = Few /LPF UA Mucus) *NA*(09/16/2011 08:25:00) [facility] HospitalVhrgsrtGQAMJCRDHD3524-71-55 13:25:00 Test Item Value Reference Range Interpretation Comments UA Ketones (test code Negative mg/dL = UA Ketones) *NA*(09/16/2011 08:25:00) [facility] HospitalAnkmleqARFDESRZMY1252-97-43 13:25:00 Test Item Value Reference Range Interpretation Comments UA Bili (test code = Negative *NA*(09/16/2011 UA Bili) 08:25:00) [facility] HospitalIitywlgJAZUBSEMNQ9344-66-17 13:25:00 Test Item Value Reference Range Interpretation Comments UA Blood (test code = Negative (09/16/2011 N UA Blood) 08:25:00) [facility] HospitalTkmlybhAUKYMLONYG0888-07-39 13:25:00 Test Item Value Reference Range Interpretation Comments UA Nitrite (test code Negative (09/16/2011 N = UA Nitrite) 08:25:00) [facility] HospitalXyulzqiQUZHWJTOHN8386-76-70 13:25:00 Test Item Value Reference Range Interpretation Comments UA Leuk Est (test Negative (09/16/2011 N code = UA Leuk Est) 08:25:00) [facility] HospitalKrbqgudHSFYQSRZBN7880-82-20 13:25:00 Test Item Value Reference Range Interpretation Comments UA Sq Epi (test code Occasional /LPF = UA Sq Epi) *NA*(09/16/2011 08:25:00) [facility] HospitalYwgtwpmKVKMNHARXI2348-48-03 13:25:00 Test Item Value Reference Range Interpretation Comments UA Glucose (test code Negative mg/dL = UA Glucose) *NA*(09/16/2011 08:25:00) [facility] HospitalZzarsmhCAGHMBOZSE4410-50-94 13:25:00 Test Item Value Reference Range Interpretation Comments UA Protein (test code Negative mg/dL N = UA Protein) (09/16/2011 08:25:00) [facility] HospitalQmhcjvtBVVAMNMGEV6181-77-78 13:25:00 Test Item Value Reference Range Interpretation Comments UA Color (test code = Yellow *NA*(09/16/2011 UA Color) 08:25:00) [facility] HospitalBlihmsiQZDFFUZMRW5964-37-19 13:25:00 Test Item Value Reference Range Interpretation Comments UA pH (test code = UA pH) 5.5 5.0-8.0 N [facility] HospitalNfyjymjYOJLMNKKDY3578-83-32 13:25:00 Test Item Value Reference Range Interpretation Comments UA Spec Grav (test code = UA Spec Grav) 1.017 N [facility] HospitalAgnyvojVOESMTGDDY2472-58-55 13:25:00 Test Item Value Reference Range Interpretation Comments UA Turbidity (test code = Clear (09/16/2011 N UA Turbidity) 08:25:00) [facility] HospitalDfmxevyGNXDBNQCWL0402-69-07 13:25:00 Test Item Value Reference Range Interpretation Comments UA Urobilinogen (test code *NA*(09/16/2011 0.1-1.0 = UA Urobilinogen) 08:25:00) [facility] HospitalIzmhxbaGJOIVSBUYG4915-54-38 13:25:00 Test Item Value Reference Range Interpretation Comments UA WBC (test code = no gt See_Comment N [Automa lorie message] The UA WBC) system which ge nerated this result transmit lorie reference range : <=5. The reference range was not used to interpr et this result as asher l/abnormal. [facility] HospitalSferpeqHZICZXNVOQ5122-73-02 08:42:00 Test Item Value Reference Range Interpretation Comments UA Mucus (test code = Few /LPF UA Mucus) *NA*(09/15/2011 03:42:00) [facility] HospitalQkysredYGMJGHCULZ0495-13-44 08:42:00 Test Item Value Reference Range Interpretation Comments UA RBC (test code = 1 See_Comment N [Automa lorie message] The UA RBC) system which ge nerated this result transmit lorie reference range : <=2. The reference range was not used to interpr et this result as asher l/abnormal. [facility] HospitalCfmyokaOVFTRNKJIO2496-62-21 08:42:00 Test Item Value Reference Range Interpretation Comments UA Blood (test code = Negative (09/15/2011 N UA Blood) 03:42:00) [facility] HospitalAtvtlmfACPULDUHVD4485-65-97 08:42:00 Test Item Value Reference Range Interpretation Comments UA Nitrite (test code Negative (09/15/2011 N = UA Nitrite) 03:42:00) [facility] HospitalEawlireCDYNISJXUE6366-51-33 08:42:00 Test Item Value Reference Range Interpretation Comments UA Leuk Est (test Negative (09/15/2011 N code = UA Leuk Est) 03:42:00) [facility] HospitalEiyljzdIMYCWLLNTC3424-43-14 08:42:00 Test Item Value Reference Range Interpretation Comments UA pH (test code = UA pH) 5.5 5.0-8.0 N [facility] HospitalUkhehnoMWPZHLCQPF8479-97-11 08:42:00 Test Item Value Reference Range Interpretation Comments UA Protein (test code Negative mg/dL N = UA Protein) (09/15/2011 03:42:00) [facility] HospitalUiqzhxzQPIHQFPSAM4101-12-78 08:42:00 Test Item Value Reference Range Interpretation Comments UA Glucose (test code Negative mg/dL = UA Glucose) *NA*(09/15/2011 03:42:00) [facility] HospitalHvgmiyiGTLHKOIZJY2278-49-90 08:42:00 Test Item Value Reference Range Interpretation Comments UA Ketones (test code Negative mg/dL = UA Ketones) *NA*(09/15/2011 03:42:00) [facility] HospitalEmmtyulSBQJRBEDCS7829-31-65 08:42:00 Test Item Value Reference Range Interpretation Comments UA Bili (test code = Negative *NA*(09/15/2011 UA Bili) 03:42:00) [facility] HospitalMnzpbixSRHQQCPFPV8845-19-61 08:42:00 Test Item Value Reference Range Interpretation Comments UA Color (test code = Yellow *NA*(09/15/2011 UA Color) 03:42:00) [facility] HospitalApqyobgTXVWORMWMI0881-39-97 08:42:00 Test Item Value Reference Range Interpretation Comments UA Turbidity (test code Slight A = UA Turbidity) *ABN*(09/15/2011 03:42:00) [facility] HospitalMhuqasaMVSRDXLBJN3290-61-16 08:42:00 Test Item Value Reference Range Interpretation Comments UA Spec Grav (test code = UA Spec Grav) 1.012 N [facility] CenterVwqnqhuXPTHFLGZPY2482-91-96 08:42:00 Test Item Value Reference Range Interpretation Comments UA Sq Epi (test code = UA Sq Epi) None [facility]en [facility] HospitalMozcodpPBILMFOOWN6904-44-96 08:42:00 Test Item Value Reference Range Interpretation Comments UA Urobilinogen (test code *NA*(09/15/2011 0.1-1.0 = UA Urobilinogen) 03:42:00) [facility] CenterWleuytqDkzmzkrioywz5930-68-33 08:42:00 Test Item Value Reference Range Interpretation Comments Culture: Urine (test code = Culture: Urine) [facility] HospitalInijzxyVPAPQPPOKI1644-92-09 08:42:00 Test Item Value Reference Range Interpretation Comments UA Mucus (test code = Few /LPF UA Mucus) *NA*(09/15/2011 03:42:00) [facility] HospitalOxmpqgmOSDOJNBFSO7074-36-97 08:42:00 Test Item Value Reference Range Interpretation Comments UA RBC (test code = 1 See_Comment N [Automa lorie message] The UA RBC) system which ge nerated this result transmit lorie reference range : <=2. The reference range was not used to interpr et this result as asher l/abnormal. [facility] HospitalWkgupoiWSUAWWFMIB8879-47-93 08:42:00 Test Item Value Reference Range Interpretation Comments UA Blood (test code = Negative (09/15/2011 N UA Blood) 03:42:00) [facility] HospitalJmppowgRNXYAIBFKM9873-60-61 08:42:00 Test Item Value Reference Range Interpretation Comments UA Nitrite (test code Negative (09/15/2011 N = UA Nitrite) 03:42:00) [facility] HospitalGrllajvQBYSSGKDNB2709-46-97 08:42:00 Test Item Value Reference Range Interpretation Comments UA Leuk Est (test Negative (09/15/2011 N code = UA Leuk Est) 03:42:00) [facility] HospitalGrgjrjwROUCUHXWGJ7759-63-01 08:42:00 Test Item Value Reference Range Interpretation Comments UA pH (test code = UA pH) 5.5 5.0-8.0 N [facility] HospitalLsbflatLSNQSRNODP3417-57-67 08:42:00 Test Item Value Reference Range Interpretation Comments UA Protein (test code Negative mg/dL N = UA Protein) (09/15/2011 03:42:00) [facility] HospitalXgqlnsbBZHXJXHWCP3080-40-64 08:42:00 Test Item Value Reference Range Interpretation Comments UA Glucose (test code Negative mg/dL = UA Glucose) *NA*(09/15/2011 03:42:00) [facility] HospitalXgzuwlsPDLSGHHOYF8951-05-09 08:42:00 Test Item Value Reference Range Interpretation Comments UA Ketones (test code Negative mg/dL = UA Ketones) *NA*(09/15/2011 03:42:00) [facility] HospitalFhvfwblDRZQGEVWYV1437-18-49 08:42:00 Test Item Value Reference Range Interpretation Comments UA Bili (test code = Negative *NA*(09/15/2011 UA Bili) 03:42:00) [facility] HospitalIjygpajCYEHQKVVMU6371-23-42 08:42:00 Test Item Value Reference Range Interpretation Comments UA Color (test code = Yellow *NA*(09/15/2011 UA Color) 03:42:00) [facility] HospitalKcthzjlAHZAOBZZYV3814-44-97 08:42:00 Test Item Value Reference Range Interpretation Comments UA Turbidity (test code Slight A = UA Turbidity) *ABN*(09/15/2011 03:42:00) [facility] HospitalMurwpoyJAXEFYFOPL9163-84-56 08:42:00 Test Item Value Reference Range Interpretation Comments UA Spec Grav (test code = UA Spec Grav) 1.012 N [facility] HospitalOgpgbrySWMRNDAMFY8400-41-56 08:42:00 Test Item Value Reference Range Interpretation Comments UA Sq Epi (test code = UA Sq Epi) None Seen [facility] HospitalDzxtbeoWYMNDUNFVF9268-09-13 08:42:00 Test Item Value Reference Range Interpretation Comments UA Urobilinogen (test code *NA*(09/15/2011 0.1-1.0 = UA Urobilinogen) 03:42:00) [facility]HtjpwwkHrmuckokpvuf3675-07-61 08:42:00 Test Item Value Reference Range Interpretation Comments Culture: Urine (test code = Culture: Urine) [facility] CenterHczegfvDKGMTUURZ6103-78-82 08:40:00 Test Item Value Reference Range Interpretation Comments TSH (test code = TSH) 3.390 0.360-3.740 N [facility] CenterPibttapLBKWZAXAT3290-43-49 08:40:00 Test Item Value Reference Range Interpretation Comments T4 (test code = T4) 8.5 4.7-13.3 N [facility] CenterHrfrijiFJVNRXNLK0448-90-28 08:40:00 Test Item Value Reference Range Interpretation Comments T3 Uptake (test code = T3 Uptake) 33 31-39 N [facility] CenterOcexysjHWMEQDYPN8155-53-98 08:40:00 Test Item Value Reference Range Interpretation Comments TSH (test code = TSH) 3.390 0.360-3.740 N [facility] CenterSxfuhaxDRHJQUMVY8222-23-34 08:40:00 Test Item Value Reference Range Interpretation Comments Total Protein (test code = Total 6.4 6.4-8.4 N Protein) [facility] CenterUdkjetwFKYBNCIOP8983-69-82 08:40:00 Test Item Value Reference Range Interpretation Comments AST (test code = AST) 14 See_Comment N [Auto mated message] The system which ge nerated this result transmit lorie reference range : <=37. The reference range was not used to interpr et this result as asher l/abnormal. [facility] AreaIxwnyhjGPKPTFNIE5201-16-56 08:40:00 Test Item Value Reference Range Interpretation Comments Bili Total (test code = Bili Total) 0.4 0.2-1.3 N [facility] AreaUqzsyloMPLOYCPGD4532-45-60 08:40:00 Test Item Value Reference Range Interpretation Comments ALT (test code = ALT) 24 See_Comment N [Auto mated message] The system which ge nerated this result transmit lorie reference range : <=65. The reference range was not used to interpr et this result as asher l/abnormal. [facility] AreaBmwolyhRNECUKQMC9809-78-91 08:40:00 Test Item Value Reference Range Interpretation Comments Alk Phos (test code = Alk Phos) 81 39-136 N [facility] AreaLfvuyowYHUGVWHGN4028-39-77 08:40:00 Test Item Value Reference Range Interpretation Comments Albumin Lvl (test code = Albumin Lvl) 3.3 3.5-5.0 L [facility] BvjbotbZYPXQNNWH7339-66-38 08:40:00 Test Item Value Reference Range Interpretation Comments A/G Ratio (test code = A/G Ratio) 1.1 0.7-1.6 N [facility] AreaAwqvozsJNDMDDOML1210-38-58 08:40:00 Test Item Value Reference Range Interpretation Comments B/C Ratio (test code = B/C Ratio) 14 6-25 N [facility] AreaHlxsuuqHTEGJLSVV7110-64-50 08:40:00 Test Item Value Reference Range Interpretation Comments Globulin (test code = Globulin) 3.1 2.0-4.0 N [facility] AreaPstunkoDRDBXOVJG2110-51-21 08:40:00 Test Item Value Reference Range Interpretation Comments FTI (test code = FTI) 2.8 [facility] AreaJyearggBCJWNCUWMZ9605-04-04 08:40:00 Test Item Value Reference Range Interpretation Comments PTT (test code = PTT) 32.4 s 22.9-35.8 N [facility] AreaEntrpdtPJAQXDBIBV7383-49-15 08:40:00 Test Item Value Reference Range Interpretation Comments PT (test code = PT) 13.0 s 12.0-14.7 N [facility]MkxokqiUWWOCADNXP5946-65-77 08:40:00 Test Item Value Reference Range Interpretation Comments INR (test code = INR) 0.98 0.85-1.17 N [facility] CenterPmbrmpoWVKHPPHSH3908-44-85 08:40:00 Test Item Value Reference Range Interpretation Comments TSH (test code = TSH) 3.390 0.360-3.740 N [facility] CenterSzvraamGOPQEZGSS1582-13-68 08:40:00 Test Item Value Reference Range Interpretation Comments T4 (test code = T4) 8.5 4.7-13.3 N [facility] CenterShbmyxqJHRLXBKXP8972-30-61 08:40:00 Test Item Value Reference Range Interpretation Comments T3 Uptake (test code = T3 Uptake) 33 31-39 N [facility] CenterEwkzigwPTEJQRLEZ0019-42-29 08:40:00 Test Item Value Reference Range Interpretation Comments TSH (test code = TSH) 3.390 0.360-3.740 N [facility] CenterXhndzmzXAZFYIAEO7326-53-59 08:40:00 Test Item Value Reference Range Interpretation Comments Total Protein (test code = Total 6.4 6.4-8.4 N Protein) [facility] CenterGiafogiRPGURVPTH4857-13-31 08:40:00 Test Item Value Reference Range Interpretation Comments AST (test code = AST) 14 See_Comment N [Auto mated message] The system which ge nerated this result transmit lorie reference range : <=37. The reference range was not used to interpr et this result as asher l/abnormal. [facility] CenterYdhiztsOXOQSJLWN0065-74-60 08:40:00 Test Item Value Reference Range Interpretation Comments Bili Total (test code = Bili Total) 0.4 0.2-1.3 N [facility] CenterSdueegmRPUACGSJZ4420-29-59 08:40:00 Test Item Value Reference Range Interpretation Comments ALT (test code = ALT) 24 See_Comment N [Auto mated message] The system which ge nerated this result transmit lorie reference range : <=65. The reference range was not used to interpr et this result as asher l/abnormal. [facility] CenterUeakobjMTAPTBGEN2544-34-59 08:40:00 Test Item Value Reference Range Interpretation Comments Alk Phos (test code = Alk Phos) 81 39-136 N [facility] CenterZaydbfxUQRHPLDWR3965-66-80 08:40:00 Test Item Value Reference Range Interpretation Comments Albumin Lvl (test code = Albumin Lvl) 3.3 3.5-5.0 L [facility] CenterAzcdgpmXGWKVWMCL9438-46-33 08:40:00 Test Item Value Reference Range Interpretation Comments A/G Ratio (test code = A/G Ratio) 1.1 0.7-1.6 N [facility] CenterXrpxxczLSLZJCSHH8898-48-77 08:40:00 Test Item Value Reference Range Interpretation Comments B/C Ratio (test code = B/C Ratio) 14 6-25 N [facility] CenterMdnhssmCFIEBNTBY0179-47-50 08:40:00 Test Item Value Reference Range Interpretation Comments Globulin (test code = Globulin) 3.1 2.0-4.0 N [facility] CenterSsxscqjMQYTYNYQP7324-59-60 08:40:00 Test Item Value Reference Range Interpretation Comments FTI (test code = FTI) 2.8 [facility] HospitalNbxfdgmJLTSJHSBDD0105-84-95 08:40:00 Test Item Value Reference Range Interpretation Comments PTT (test code = PTT) 32.4 s 22.9-35.8 N [facility] HospitalQkorrmgASKCCYFHWG3290-71-88 08:40:00 Test Item Value Reference Range Interpretation Comments PT (test code = PT) 13.0 s 12.0-14.7 N [facility] HospitalKazvxgsMKSZFSRYMC3050-30-20 08:40:00 Test Item Value Reference Range Interpretation Comments INR (test code = INR) 0.98 0.85-1.17 [facility]
--- NOTE | 2022-05-20 13:52 | RAD REPORT ---
EXAM DESCRIPTION: RAD - Chest Single View - 05/20/2022 1:45 pm CLINICAL HISTORY: ams COMPARISON: Portable 05/18/2022 TECHNIQUE: AP portable chest image was obtained 05/20/2022 1:45 pm . FINDINGS: Lung volumes are low but similar to comparison. Diffusely prominent interstitial pattern i s present. Numerous granulomatous calcifications are present. Sternotomy wires and CABG surgical iraheta ges are noted. No new mass or consolidation. Chronic interstitial pattern can mask edema and infiltra te. Heart size is normal. Vasculature within normal limits. No measurable pleural effusion and no pneumo thorax. No acute bony abnormality seen. No acute aortic findings suspected. IMPRESSION: Chronic lung parenchymal pattern similar to comparison. Severity of chronic pattern can mask mild edema or infiltrate.
--- NOTE | 2022-05-20 13:55 | RAD REPORT ---
EXAM DESCRIPTION: CT - Ct Stroke Brain Wo Cont - 05/20/2022 1:43 pm CLINICAL HISTORY: STROKE ALERT COMPARISON: Facial Bones W/ Mpr dated 05/18/2022; Head C Spine Cap W Con dated 05/18/2022 TECHNIQUE: Axial 5 millimeter thick images of the head were obtained without IV contrast. All CT scans are performed using dose optimization technique as appropriate and may include automated exposure control or mA/KV adjustment according to patient size. FINDINGS: No intracranial hemorrhage, mass, or cerebral edema. No acute cortical based infarction. N o cortical edema or sulcal effacement. Moderate atrophy changes are present. Ventricles in proportion to the volume loss. Chronic ischemic changes are mild for age. Intracranial findings are similar to the April 17 study. No extra-axial fluid collections. Mcnamara matter-white matter differentiation is p reserved. No globe or orbital content abnormality. Visualized portions of the mastoid air cells, paranasal sinuses, and orbits are unremarkable. Small frontal scalp hematoma is present with underlying bone and sinus intact. Findings telephoned to Matt Miranda 1:52 p.m. IMPRESSION: No acute intracranial finding identified. The above detailed findings are without significant change from May 18 imaging.
[2022-05-20 14:01] LABS: Absolute Lymphocytes (CBC) 2.9 K/uL (0.7-4.9); Hematocrit 42.8 % (39.6-49.0); Lymphocytes % 42.1 % (15.3-44.8); MCV 93.7 fL (80-100); MPV 8.5 fL (7.6-11.3); RBC Red Blood Cell Count 4.57 M/uL (4.33-5.43)
[2022-05-20 14:05] LABS: Protime INR 1.03
[2022-05-20 14:16] LABS: Potassium 3.6 mmol/L (3.5-5.1); Troponin High Sensitivity 15.1 pg/mL (<58.9)
[2022-05-20] MEDS ORDERED: LEVETIRACETAM 500 MG/5 ML VIAL IV ONE ×2 (14:25→14:46)
[2022-05-20] MEDS ORDERED: TENECTEPLASE 50 MG/10 ML VIAL IV ONE (14:26)
[2022-05-20] MEDS ORDERED: NA CHLORIDE 0.9% 100 ML ONE ×2 (14:26→14:46)
[2022-05-20 15:11] LABS: SARS-CoV-2 Antigen Rapid Res Negative (Negative)
--- NOTE | 2022-05-20 15:19 | RAD REPORT ---
EXAM DESCRIPTION: CT - Neck Angio - 05/20/2022 2:28 pm CLINICAL HISTORY: ams TECHNIQUE: During dynamic enhancement using nonionic IV contrast, axial 2 mm thick images of the nec k were obtained. Sagittal and axial reconstruction images were generated using MIP technique and revi ewed. All CT scans are performed using dose optimization technique as appropriate and may include automated exposure control or mA/KV adjustment according to patient size. FINDINGS: No aneurysm or vascular malformation identified. No carotid or vertebral dissection. Aortic arch is bovine configuration variant. Calcifications are present at the great vessel origins b ut no luminal narrowing seen. Left vertebral artery is very tortuous at the origin with calcification s present. No significant luminal narrowing seen. Calcifications are present at the origin of the rig ht vertebral artery. Vertebral arteries are codominant. Vertebral calcifications are present but do n ot appear to cause significant luminal narrowing. Bilateral carotid bulb calcifications are present n ot causing med than 20% luminal narrowing. There is narrowing of the post bulb left internal carotid artery also approximately 20%. No vasculitis or diffuse vascular process identifiable. IMPRESSION: CT angio neck examination shows atherosclerotic calcifications in the carotid and verte bral vasculature. However, no hemodynamically significant stenosis is identified. No carotid dissection or vertebral dissection.
--- NOTE | 2022-05-20 15:21 | RAD REPORT ---
EXAM DESCRIPTION: CT - Head angio - 05/20/2022 2:28 pm CLINICAL HISTORY: ams TECHNIQUE: During dynamic enhancement using nonionic IV contrast, axial 1 millimeter thick images of the head were obtained. Sagittal and axial reconstruction images were generated using MIP technique and reviewed. All CT scans are performed using dose optimization technique as appropriate and may include automated exposure control or mA/KV adjustment according to patient size. COMPARISON: CT head same date, CT angio neck same date FINDINGS: No aneurysm or vascular malformation identified. Major venous sinuses are patent. Cavernous carotid atherosclerotic calcifications are present. Calcifications are present in the dista l left vertebral artery. No significant stenosis, named branch occlusion, vasculitis or other signifi cant vascular finding identifiable. IMPRESSION: Carotid and vertebral calcifications are present as detailed. No named branch occlusion , significant stenosis or other acute finding identifiable.
[2022-05-20] MEDS ORDERED: ACETAMINOPHEN 500 MG TAB PO PRN (15:31)
[2022-05-20] MEDS: NA CHLORIDE 0.9% 1,000 ML IV SCH (16:00)
--- NOTE | 2022-05-20 16:33 | ER ---
Nurse's Notes [facility] [place] Name: Bryan Graf Age: 71 yrs Sex: Male : 1950 Arrival Date: 05/20/2022 Time: 13:35 Bed 7 Private MD: Diagnosis: Cerebral infarction, unspecified Presentation: 05/20 13:32 Chief complaint: EMS states: Family reports AMS and slurred speech 1 hour. Pt seen in ED after fall 2 days ago, reports he has a concussion. 13:32 Method Of Arrival: EMS: [facility] 13:32 Coronavirus screen: At this time, the client does not indicate any symptoms associated hb with coronavirus-19. Ebola Screen: No symptoms or risks identified at this time. Initial Sepsis Screen: Does the patient meet any 2 criteria? No. Patient's initial sepsis screen is negative. Does the patient have a suspected source of infection? No. Patient's initial sepsis screen is negative. Risk Assessment: Do you want to hurt yourself or someone else? Patient reports no desire to harm self or others. Onset of symptoms was May 20, 2022. 13:32 Acuity: GELACIO 2 hb 19:00 An acute neurological deficit is present. pf1 Triage Assessment: 19:00 The onset of the patients symptoms was May 20, 2022 at 12:30. pf1 Stroke Activation: Symptom onset < 3 hours Physician: Stroke Attending; Name: ; Notified At: ; Arrived At: Physician: Chief Stroke Resident; Name: ; Notified At: ; Arrived At: Physician: Stroke Resident; Name: ; Notified At: ; Arrived At: Physician: ED Attending; Name: ; Notified At: ; Arrived At: Physician: ED Resident; Name: ; Notified At: ; Arrived At: Historical: - Allergies: 13:43 Aspirin; hb 13:43 PENICILLINS; hb - PMHx: 13:43 Chronic pain; COPD; CVA; Hypertension; Migraine; Pneumonia; Seizures; swelling and pain hb to L lower leg; - PSHx: 13:43 heart surgery; hb - Immunization history:: Client reports having NOT received the Covid vaccine. Flu vaccine is not up to date. - Social history:: Smoking status: Patient reports the use of cigarette tobacco products, unknown amount. Screenin:39 [facility] ED Fall Risk Assessment (Adult) Score/Fall Risk Level 3 or more points = High hb Risk Oriented to surroundings, Maintained a safe environment, Educated pt \T\ family on fall prevention, incl call for assistance when getting out of bed. Abuse screen: Denies threats or abuse. Denies injuries from another. Nutritional screening: No deficits noted. Tuberculosis screening: No symptoms or risk factors identified. Assessment: 13:32 Reassessment: CODE STROKE CALLED, PT TO CT WITH JENNIFER RUIZ. hb 13:32 TNKase (Tenecteplase) Screening: Indications: Definite evidence of stroke, ischemic, kc6 embolic, or hypertensive: Yes. Treatment will start within 4.5 hours onset of symptoms: Yes. No evidence of intracranial hemorrhage or CT of head and no evidence of peripheral hemorrhage or recent CVA: No. Consent for thrombolytic therapy: Yes. 13:32 VAN Scoring: Arm Drift: Minor drift Visual Disturbance: No visual disturbance noted. kc6 Aphasia: Expressive aphasia noted. Provider notified of +VAN scoring. Neglect: No neglect noted. 13:35 General: Appears distressed, uncomfortable, Behavior is drowsy, inappropriate for age. kc6 Pain: Complains of pain in right eye Pain does not radiate. Pain currently is 9 out of 10 on a pain scale. Is continuous, Alleviated by nothing. Noted to be guarding, resistant to movement, Also complains of no other associated symptoms. Neuro: Curran Agitation-Sedation Scale (RASS): -1 Drowsy Level of Consciousness is alert, obeys commands, Oriented to person, Corporate Executive are weak bilaterally Moves all extremities. Speech with expressive aphasia noted, Facial symmetry appears normal, Pupils are PERRLA, Intact. Cardiovascular: Heart tones S1 S2 present Capillary refill < 3 seconds Rhythm is sinus rhythm. Respiratory: Airway is patent Trachea midline Respiratory effort is even, unlabored, Respiratory pattern is regular, symmetrical, Breath sounds are clear bilaterally. GI: Reports nausea. : No signs and/or symptoms were reported regarding the genitourinary system. EENT: No signs and/or symptoms were reported regarding the EENT system. Derm: Skin is intact, Skin is pink, warm \T\ dry. Bruising that is dark purple, yellow, on right eye. Musculoskeletal: No signs and/or symptoms reported regarding the musculoskeletal system. Circulation, motion, and sensation intact. Capillary refill < 3 seconds, Range of motion: intact in all extremities. 13:59 Patient has been NPO before screening. The patient is alert, and able to follow kc6 commands. The patient does not exhibit slurred or garbled speech. The patient is exhibiting difficulty speaking. The patient is exhibiting difficulty understanding words. The patient is unable to swallow own secretions without drooling or the need for suction. Bedside swallow screening discontinued. Patient kept NPO until cleared by Speech Therapy or Physician. The patient did not tolerate one teaspoon of water. Drooling, immediate coughing, gurgling, or clearing of the throat was noted. Bedside swallow screening discontinued. Patient kept NPO until cleared by Speech Therapy or Physician. The patient did not tolerate 90mL of water. Drooling, immediate coughing, gurgling, or clearing of the throat was noted. Bedside swallow screening discontinued. Patient kept NPO until cleared by Speech Therapy or Physician. The patient failed the bedside swallow screening. The patient will be kept NPO until cleared by Speech Therapy or Physician. Provider notified of bedside swallow screening results: Matt ZAMUDIO. 14:40 Reassessment: TNK administered at 1440. please refer to the IV Thrombolytic Vital Sign kc6 Flowsheet for further vital signs and NIHSS scoring. 15:40 Reassessment: Patient appears in no apparent distress at this time. Patient and/or [facility] family updated on plan of care and expected duration. Pain level reassessed. eyes closed, respirations even and unlabored. easily aroused. client is awake, A\T\O x1, to self. skin is warm, dry, and pink. 16:18 Reassessment: client voided approximately 500 mL of clear yellow urine into urinal. kc6 16:40 Reassessment: Patient appears in no apparent distress at this time. No changes from kc6 previously documented assessment. Patient and/or family updated on plan of care and expected duration. Pain level reassessed. 17:05 Reassessment: please see [facility] for further charting. 6 19:20 General: Appears in no apparent distress. uncomfortable, Behavior is agitated, drowsy. pf1 19:20 Pain: Complains of pain in face and right eye Pain currently is 7 out of 10 on a pain pf1 scale. Neuro: Level of Consciousness is obeys commands, lethargic, Oriented to person, [employer] Executive are weak bilaterally Weakness Gait is unsteady, Speech with expressive aphasia noted, Facial symmetry appears normal, Pupils are PERRLA, Pupil Size: 2mm paresthesias in right arm. Cardiovascular: Capillary refill < 3 seconds Patient's skin is warm and dry. Respiratory: Airway is patent Trachea midline Respiratory effort is even, unlabored, Respiratory pattern is regular, symmetrical, Breath sounds are clear bilaterally. GI: No signs and/or symptoms were reported involving the gastrointestinal system. Abdomen is flat, non-distended, Bowel sounds present X 4 quads. : No deficits noted. No signs and/or symptoms were reported regarding the genitourinary system. EENT: Eyes bruising with contusion to right eye and right eyebrow/forehead.. Derm: Bruising that is dark purple, yellow, on right face and right eye. Musculoskeletal: Circulation, motion, and sensation intact. Capillary refill Range of motion: intact in all extremities. Vital Signs: 13:32 BP 126 / 82; Pulse 83; Resp 16; Temp 98; Pulse Ox 96% on R/A; Weight 68.04 kg; Height 5 hb ft. 7 in. (170.18 cm); Pain 10/10; 14:30 BP 111 / 81; Pulse 72; Resp 18; Pulse Ox 99% on R/A; kc6 14:40 BP 124 / 61; Pulse 71; kc6 15:06 BP 125 / 71; Pulse 73; Resp 15; Pulse Ox 96% on R/A; kc6 15:45 BP 124 / 73; Pulse 74; Resp 12 S; Pulse Ox 98% on R/A; kc6 16:00 BP 130 / 74; Pulse 71; Resp 17; Pulse Ox 97% on R/A; kc6 16:45 BP 129 / 65; Pulse 74; Resp 13 S; Pulse Ox 97% on R/A; kc6 18:46 BP 126 / 63; Pulse 69; Resp 15; Pulse Ox 96% on R/A; hb 19:10 BP 112 / 63; Pulse 71; Resp 13; Temp 98; Pulse Ox 95% on R/A; Pain 7/10; pf1 13:32 Body Mass Index 23.49 (68.04 kg, 170.18 cm) hb NIH Stroke Scale Scores: 14:00 NIHSS Score: 15 kc6 14:46 NIHSS Score: 18 [facility] ED Course: 13:35 Patient arrived in ED. hb 13:35 Patient has correct armband on for positive identification. Placed in gown. Bed in low kc6 position. Call light in reach. Side rails up X2. 13:36 Matt Miranda PA is PHCP. [facility] 13:36 Edil Pace MD is Attending Physician. jmm 13:42 Triage completed. hb 13:43 Jennifer Jackson, RN is Primary Nurse. hb 13:43 Arm band placed on. hb 13:44 CT Stroke Brain w/o Contrast In Process Unspecified. EDMS 13:47 Stroke CXR 1 View In Process Unspecified. EDMS 14:25 Inserted saline lock: 20 gauge in right forearm, using aseptic technique. Blood hb collected. 14:30 CT Head Angio In Process Unspecified. EDMS 14:30 CT Neck Angio In Process Unspecified. EDMS 15:23 Alma Maurer, RN is Primary Nurse. kc6 16:31 Sena Osuna MD is Hospitalizing Provider. [facility] 17:06 No provider procedures requiring assistance completed. Patient admitted, IV remains in kc6 place. Administered Medications: 14:40 Drug: TNK FOR STROKE - Tenecteplase 0.25 mg/kg {Co-Signature: vg1 (Brenda Locke RN).} Route: IV; Rate: per protocol; Site: right forearm; 15:40 Follow up: Response: No adverse reaction; IV Status: Completed infusion; IV Intake: kc6 3.6ml 14:55 Drug: Keppra (levETIRAcetam) 1000 mg Route: IV; Rate: calculated rate; Site: right [facility] forearm; 15:55 Follow up: Response: No adverse reaction; IV Status: Completed infusion; IV Intake: kc6 100ml Medication: 17:06 VIS not applicable for this client. kc6 Point of Care Testing: Blood Glucose: 13:45 Blood Glucose: 112 mg/dL; hb Ranges: Intake: 15:40 IV: 4ml; Total: 4ml. kc6 15:55 IV: 100ml; Total: 104ml. kc6 Outcome: 16:32 Decision to Hospitalize by Provider. jmm 17:06 Admitted to ER Hold. Please see [facility] for further documentation. kc6 17:06 Condition: stable 17:06 Instructed on the need for admit. 20:05 Admitted to ICU accompanied by nurse, via stretcher, room 7, on monitor, with chart, pf1 Report called to JOSEPH Aguilar 20:05 Condition: stable pf1 20:05 Instructed on the need for admit, Demonstrated understanding of instructions. 20:20 Patient left the ED. pf1 NIH Stroke Scale - NIH Stroke Score Date: 05/20/2022 Time: 14:00 Total Score = 15 1a. Level of Consciousness (LOC) - 0(Alert) 1b. Level of Consciousness (LOC) (Month \T\ Age) - 1(One) 1c. LOC Commands (Open \T\ Closes Eyes/Beater Room Supervisor) - 0(Both) 2. Best Gaze (Lateral Gaze Paresis) - 0(Normal) 3. Visual Field Loss - 0(No visual loss) 4. Facial Palsy - 0(Normal) 5a. Left Arm: Motor (10-second hold) - 1(Drift) 5b. Right Arm: Motor (10-second hold) - 1(Drift) 6a. Left Leg: Motor (5-second hold - always test supine) - 3(No effort against gravity) 6b. Right Leg: Motor (5-second hold - always test supine) - 3(No effort against gravity) 7. Limb Ataxia (finger/nose \T\ heel/arce - test with eyes open) - 2(Present in two limbs) 8. Sensory Loss (pinprick arms/legs/face) - 1(Mild to moderate loss) 9. Best Language: Aphasia (description/naming/reading) - 1(Mild to moderate aphasia) 10. Dysarthria (speech clarity - read or repeat words) - 1(Mild to Moderate) 11. Extinction and Inattention (visual/tactile/auditory/spatial/personal) - 1(Present) Initials: kc6 NIH Stroke Scale - NIH Stroke Score Date: 05/20/2022 Time: 14:46 Total Score = 18 1a. Level of Consciousness (LOC) - 0(Alert) 1b. Level of Consciousness (LOC) (Month \T\ Age) - 2(Neither) 1c. LOC Commands (Open \T\ Closes Eyes/Beater Room Supervisor) - 0(Both) 2. Best Gaze (Lateral Gaze Paresis) - 0(Normal) 3. Visual Field Loss - 0(No visual loss) 4. Facial Palsy - 0(Normal) 5a. Left Arm: Motor (10-second hold) - 2(Drift, some effort against gravity) 5b. Right Arm: Motor (10-second hold) - 2(Drift, some effort against gravity) 6a. Left Leg: Motor (5-second hold - always test supine) - 3(No effort against gravity) 6b. Right Leg: Motor (5-second hold - always test supine) - 3(No effort against gravity) 7. Limb Ataxia (finger/nose \T\ heel/arce - test with eyes open) - 2(Present in two limbs) 8. Sensory Loss (pinprick arms/legs/face) - 0(Normal) 9. Best Language: Aphasia (description/naming/reading) - 2(Severe aphasia) 10. Dysarthria (speech clarity - read or repeat words) - 2(Severe) 11. Extinction and Inattention (visual/tactile/auditory/spatial/personal) - 0(No abnormality) Initials: [facility] Signatures: Dispatcher [employer] EDMatt Hollingsworth PA PA [facility] Jennifer Jackson RN Alma Bañuelos RN RN kc6 Molly richmond RN RN pf1 Brenda Locke RN vg1 Corrections: (The following items were deleted from the chart) 15:57 13:35 The onset of the patients symptoms was May 20, 2022 at 12:30 [place] [id number] :57 13:35 General: Appears distressed, uncomfortable, Behavior is drowsy, kc6 inappropriate for age, [facility] : 13:35 Pain: Complains of pain in right side of head Pain does not radiate. Pain kc6 currently is 8 out of 10 on a pain scale. Is continuous, Alleviated by nothing. Noted to be guarding, resistant to movement, Also complains of no other associated symptoms. 6 : 13:35 EENT: No signs and/or symptoms were reported regarding the EENT system. [place] [id number] 13:35 Neuro: Curran Agitation-Sedation Scale (RASS): -1 Drowsy Level of kc6 Consciousness is alert, obeys commands, Oriented to person, [employer] Executive are weak bilaterally Moves all extremities. Speech with expressive aphasia noted, Facial symmetry appears normal, Pupils are PERRLA, Reports headache in right kc6 15:57 13:35 Cardiovascular: Heart tones S1 S2 present Capillary refill < 3 seconds kc6 Rhythm is sinus rhythm kc6 15:57 13:35 Respiratory: Airway is patent Trachea midline Respiratory effort is even, kc6 unlabored, Respiratory pattern is regular, symmetrical, Breath sounds are clear bilaterally. kc6 15:57 13:35 GI: Reports nausea, kc6 kc6 15:57 13:35 : No signs and/or symptoms were reported regarding the genitourinary kc6 system. kc6 15:57 13:35 Derm: Skin is intact, Skin is pink, warm \T\ dry. kc6 kc6 15:57 13:35 Derm: No signs and/or symptoms reported regarding the dermatologic kc6 system. kc6 15:57 13:35 Musculoskeletal: No signs and/or symptoms reported regarding the kc6 musculoskeletal system. Circulation, motion, and sensation intact. Capillary refill < 3 seconds, Range of motion: intact in all extremities, 6 15:57 13:35 Derm: Bruising that is dark purple, yellow, on right eye kc6 kc6 17:01 14:40 Reassessment: TNK administered at 1440. please efer to the IV kc6 Thrombolytic Vital Sign Flowsheet for further vital signs and NIHSS scoring kc6 17:05 14:39 BP 111 / 81; Pulse 72bpm; Resp 18bpm; Pulse Ox 99% RA; hb kc6 17:05 15:14 BP 125 / 71; Pulse 73bpm; Resp 15bpm; Pulse Ox 96% RA; hb kc6 17:05 16:14 BP 130 / 74; Pulse 71bpm; Resp 17bpm; Pulse Ox 97% RA; hb kc6
--- NOTE | 2022-05-20 16:33 | EDPHYS ---
Physician Documentation [facility] Name: Bryan Graf Age: 71 yrs Sex: Male : 1950 Arrival Date: 05/20/2022 Time: 13:35 Bed 7 Private MD: ED Physician Edil Pace HPI: 05/20 13:37 This 71 yrs old Male presents to ER via EMS with complaints of Altered Mental Status, jmm S/S of Possible Stroke. 13:37 The patient presents with confusion. The patient presents with dysphasia. Onset: The jmm symptoms/episode began/occurred acutely, 1 hour(s) ago. Possible causes: CVA or TIA, head injury, seizure. Is a 71-year-old male with history of COPD, CVA, hypertension, migraines, pneumonia the presents emerged department with expressive aphasia beginning approximately 1 hour prior to arrival per . States the patient has been having a headache since the head injury on Saturday and went to rebound. states that she heard the patient knocking on a wall, came into the room and noticed that the patient had inability to communicate with her. also states that the patient is also had seizures which had similar presentations.. Historical: - Allergies: 13:43 Aspirin; hb 13:43 PENICILLINS; hb - PMHx: 13:43 Chronic pain; COPD; CVA; Hypertension; Migraine; Pneumonia; Seizures; swelling and pain hb to L lower leg; - PSHx: 13:43 heart surgery; hb - Immunization history:: Client reports having NOT received the Covid vaccine. Flu vaccine is not up to date. - Social history:: Smoking status: Patient reports the use of cigarette tobacco products, unknown amount. ROS: 13:37 Neuro: Positive for altered mental status. [facility] 13:37 Unable to obtain ROS due to altered mental status. Exam: 13:37 ENT: Moist Mucus Membranes Neck: Trachea midline, Supple Chest/axilla: Normal chest [facility] wall appearance and motion. Cardiovascular: Regular rate and rhythm. No edema appreciated Respiratory: Normal respirations, no respiratory distress appreciated Abdomen/GI: Non distended Back: Normal ROM Skin: General appearance color normal MS/ Extremity: Moves all extremities, no obvious deformities appreciated, no edema noted to the lower extremities 13:37 Constitutional: The patient appears alert, awake. 13:37 Head/face: Right raccoon eye. 13:37 Neuro: Orientation: to person, Mentation: Memory: 13:37 Psych: Behavior/mood is pleasant, cooperative. Vital Signs: 13:32 BP 126 / 82; Pulse 83; Resp 16; Temp 98; Pulse Ox 96% on R/A; Weight 68.04 kg; Height 5 hb ft. 7 in. (170.18 cm); Pain 10/10; 14:30 BP 111 / 81; Pulse 72; Resp 18; Pulse Ox 99% on R/A; kc6 14:40 BP 124 / 61; Pulse 71; kc6 15:06 BP 125 / 71; Pulse 73; Resp 15; Pulse Ox 96% on R/A; kc6 15:45 BP 124 / 73; Pulse 74; Resp 12 S; Pulse Ox 98% on R/A; kc6 16:00 BP 130 / 74; Pulse 71; Resp 17; Pulse Ox 97% on R/A; kc6 16:45 BP 129 / 65; Pulse 74; Resp 13 S; Pulse Ox 97% on R/A; kc6 18:46 BP 126 / 63; Pulse 69; Resp 15; Pulse Ox 96% on R/A; hb 19:10 BP 112 / 63; Pulse 71; Resp 13; Temp 98; Pulse Ox 95% on R/A; Pain 7/10; pf1 13:32 Body Mass Index 23.49 (68.04 kg, 170.18 cm) hb NIH Stroke Scale Scores: 14:00 NIHSS Score: 15 kc6 14:46 NIHSS Score: 18 [facility] MDM: 13:[address] [facility] 13:56 Data reviewed: vital signs, nurses notes. ED course: Discussed the patient with Dr. anton Jacobson with CT results and patient presentation. Recommends keppra and tnk. Hold aspirin for 24 hours. . 14:35 ED course: I spoke with Mr. Charley soares, the of the patient whom stated the anton patient was altered approximately 1 hour prior to arrival. States the patient also had a similar presentation with seizure. I did discuss risks/benefits of administration of TNK and requests TNK administration for Mr. Graf. . 16:30 Consideration of Admission/Observation Patient was admitted/placed on observation. anton Management of patient was discussed with the following: Hospitalist: Dr. Osuna. I considered the following discharge prescriptions or medication management in the emergency department Medications were administered in the Emergency Department. See MAR. Discussion of test interpretation with radiology: I had a discussion with radiology regarding a test interpretation. CT results discussed with dr. hanson. Test considered but Not performed: MRI: DO not have access to MRI today. Historians other than the Patient: Charley Graf. Counseling: I had a detailed discussion with the patient and/or guardian regarding: the historical points, exam findings, and any diagnostic results supporting the discharge/admit diagnosis, lab results, radiology results, the need for further work-up and treatment in the hospital. 05/20 13:37 Order name: Basic Metabolic Panel; Complete Time: 14:34 [facility] 05/20 13:37 Order name: CBC with Diff; Complete Time: 14:06 [facility] 05/20 13:37 Order name: High Sensitivity Troponin; Complete Time: 14:34 [facility] 05/20 13:37 Order name: Protime (+inr); Complete Time: 14:06 [facility] 05/20 13:37 Order name: Ptt, Activated; Complete Time: 14:06 [facility] 05/20 14:00 Order name: Glucose, Ancillary Testing; Complete Time: 14:06 [facility] 05/20 14:22 Order name: SARS RAPID; Complete Time: 15:11 k[facility] 05/20 15:36 Order name: CBC with Automated Diff [facility] 05/20 15:36 Order name: CBC with Automated Diff [facility] 05/20 15:36 Order name: Comprehensive Metabolic Panel [facility] 05/20 15:36 Order name: Comprehensive Metabolic Panel [facility] 05/20 15:36 Order name: Lipid Profile [facility] 05/20 15:36 Order name: Lipid Profile [facility] 05/20 15:36 Order name: Magnesium [facility] 05/20 13:37 Order name: CT Stroke Brain w/o Contrast; Complete Time: 13:58 [facility] 05/20 13:37 Order name: Stroke CXR 1 View; Complete Time: 13:55 [facility] 05/20 13:56 Order name: CT Head Angio; Complete Time: 15:24 [facility] 05/20 15:36 Order name: Magnesium [facility] 05/20 15:36 Order name: Protime (+INR) [facility] 05/20 15:36 Order name: Protime (+INR) [facility] 05/20 15:36 Order name: Protime (+INR) [facility] 05/20 15:36 Order name: Protime (+INR) [facility] 05/20 15:36 Order name: Protime (+INR) [facility] 05/20 15:36 Order name: Protime (+INR) [facility] 05/20 15:36 Order name: PTT, Activated Partial Thromb [facility] 05/20 15:36 Order name: PTT, Activated Partial Thromb [facility] 05/20 15:36 Order name: PTT, Activated Partial Thromb [facility] 05/20 15:36 Order name: PTT, Activated Partial Thromb [facility] 05/20 15:36 Order name: PTT, Activated Partial Thromb [facility] 05/20 15:36 Order name: PTT, Activated Partial Thromb [facility] 05/20 13:37 Order name: EKG; Complete Time: 13:38 [facility] 05/20 13:37 Order name: Accucheck; Complete Time: 13:45 [facility] 05/20 13:37 Order name: Cardiac monitoring; Complete Time: 13:45 [facility] 05/20 13:37 Order name: EKG - Nurse/Tech; Complete Time: 14:02 [facility] 05/20 13:37 Order name: IV Saline Lock; Complete Time: 13:51 [facility] 05/20 13:37 Order name: Labs collected and sent; Complete Time: 13:51 [facility] 05/20 13:37 Order name: NPO; Complete Time: 13:45 [facility] 05/20 13:37 Order name: O2 Per Protocol; Complete Time: 13:45 [facility] 05/20 13:37 Order name: O2 Sat Monitoring; Complete Time: 13:45 [facility] 05/20 13:37 Order name: Stroke Swallow Screen; Complete Time: 14:02 [facility] 05/20 13:56 Order name: CT Neck Angio; Complete Time: 15:21 [facility] 05/20 15:36 Order name: Physical Therapy Consult [facility] 05/20 15:36 Order name: Speech Therapy Consult [facility] 05/20 15:36 Order name: Heart Healthy [facility] 05/20 15:36 Order name: Echo with Doppler [facility] 05/20 15:36 Order name: EKG Electrocardiogram [facility] 05/20 15:36 Order name: Stroke Protocol [facility] 05/20 15:36 Order name: Chest Pa And Lat (2 Views) [facility] Administered Medications: 14:40 Drug: TNK FOR STROKE - Tenecteplase 0.25 mg/kg {Co-Signature: vg1 (Brenda Locke RN).} Route: IV; Rate: per protocol; Site: right forearm; 15:40 Follow up: Response: No adverse reaction; IV Status: Completed infusion; IV Intake: kc6 3.6ml 14:55 Drug: Keppra (levETIRAcetam) 1000 mg Route: IV; Rate: calculated rate; Site: right kc6 forearm; 15:55 Follow up: Response: No adverse reaction; IV Status: Completed infusion; IV Intake: kc6 100ml Point of Care Testing: Blood Glucose: 13:45 Blood Glucose: 112 mg/dL; hb Ranges: Critical Glucose Levels:Adult <50 mg/dl or >400 mg/dl <40 mg/dl or >180 mg/dl Disposition Summary: 05/20/22 16:32 Hospitalization Ordered Hospitalization Status: Inpatient Admission [facility] Provider: Sena Osuna Location: Intensive Care Unit [facility] Condition: Stable [facility] Problem: new jm Symptoms: are unchanged [facility] Bed/Room Type: Standard [facility] Room Assignment: 6-(05/20/22 19:26) cg Diagnosis - Cerebral infarction, unspecified [facility] Forms: - Medication Reconciliation Form [facility] - SBAR form [facility] NIH Stroke Scale - NIH Stroke Score Date: 05/20/2022 Time: 14:00 Total Score = 15 1a. Level of Consciousness (LOC) - 0(Alert) 1b. Level of Consciousness (LOC) (Month \T\ Age) - 1(One) 1c. LOC Commands (Open \T\ Closes Eyes/Production Cell Leader) - 0(Both) 2. Best Gaze (Lateral Gaze Paresis) - 0(Normal) 3. Visual Field Loss - 0(No visual loss) 4. Facial Palsy - 0(Normal) 5a. Left Arm: Motor (10-second hold) - 1(Drift) 5b. Right Arm: Motor (10-second hold) - 1(Drift) 6a. Left Leg: Motor (5-second hold - always test supine) - 3(No effort against gravity) 6b. Right Leg: Motor (5-second hold - always test supine) - 3(No effort against gravity) 7. Limb Ataxia (finger/nose \T\ heel/arce - test with eyes open) - 2(Present in two limbs) 8. Sensory Loss (pinprick arms/legs/face) - 1(Mild to moderate loss) 9. Best Language: Aphasia (description/naming/reading) - 1(Mild to moderate aphasia) 10. Dysarthria (speech clarity - read or repeat words) - 1(Mild to Moderate) 11. Extinction and Inattention (visual/tactile/auditory/spatial/personal) - 1(Present) Initials: yue NIH Stroke Scale - NIH Stroke Score Date: 05/20/2022 Time: 14:46 Total Score = 18 1a. Level of Consciousness (LOC) - 0(Alert) 1b. Level of Consciousness (LOC) (Month \T\ Age) - 2(Neither) 1c. LOC Commands (Open \T\ Closes Eyes/Production Cell Leader) - 0(Both) 2. Best Gaze (Lateral Gaze Paresis) - 0(Normal) 3. Visual Field Loss - 0(No visual loss) 4. Facial Palsy - 0(Normal) 5a. Left Arm: Motor (10-second hold) - 2(Drift, some effort against gravity) 5b. Right Arm: Motor (10-second hold) - 2(Drift, some effort against gravity) 6a. Left Leg: Motor (5-second hold - always test supine) - 3(No effort against gravity) 6b. Right Leg: Motor (5-second hold - always test supine) - 3(No effort against gravity) 7. Limb Ataxia (finger/nose \T\ heel/arce - test with eyes open) - 2(Present in two limbs) 8. Sensory Loss (pinprick arms/legs/face) - 0(Normal) 9. Best Language: Aphasia (description/naming/reading) - 2(Severe aphasia) 10. Dysarthria (speech clarity - read or repeat words) - 2(Severe) 11. Extinction and Inattention (visual/tactile/auditory/spatial/personal) - 0(No abnormality) Initials: anton Signatures: Dispatcher [employer] Matt Wellington PA PA jmm Garcia, Cindy RN RN cg Jennifer Jackson RN RN hb Campbell, Kaitlyn, RN RN kc6 Brenda Locke RN vg1 Corrections: (The following items were deleted from the chart) 19:26 16:32 jmm cg
[2022-05-20] MEDS ORDERED: NA CHLORIDE 0.9% 1,000 ML ONE (17:18)
--- NOTE | 2022-05-20 18:40 | P.HP ---
Certification for Inpatient Patient admitted to: Inpatient With expected LOS: >2 Midnights Patient will require the following post-hospital care: None Practitioner: I am a practitioner with admitting privileges, knowledge of patient current condition, hospital course, and medical plan of care. Services: Services provided to patient in accordance with Admission requirements found in Title 42 Section 412.3 of the Code of Federal Regulations Patient History Date of Service: 05/20/22 Reason for admission: Acute CVA History of Present Illness: patient is a 71-year-old gentleman who had a recent fall and suffered multiple facial trauma. Patient came to the emergency room for further evaluation. Patient was discharged. Patient was having focal weakness so the family brought patient back to the emergency room. Patient was given tenecteplase. Patient states he is feeling better and his symptoms are improving. His mentation is also improved. Patient is having significant headaches but his repeat CT scan last night was unremarkable. Patient will be admitted for further treatment. Allergies Penicillins Allergy (Severe, Verified 11/25/16 22:08) Anaphylaxis aspirin Adverse Reaction (Mild, Verified 11/25/16 22:08) Itching Home Medications: Divalproex Sodium [Depakote] 500 mg PO BID 11/27/15 levETIRAcetam [Keppra*] 1,000 mg PO BID 11/27/15 Gabapentin 1 tab PO BID 09/22/20 Oxycodone HCl 1 tab PO QID PRN 09/22/20 Albuterol Inhaler [Ventolin Inhaler] 2 puff IH TID PRN #1 hfa.[email or web address].[email or web address] 09/23/20 carvediloL [Coreg*] 3.125 mg PO BID 6AM 6PM #60 tab 09/23/20 predniSONE [Deltasone*] 10 mg PO SEECOM #21 tab 09/23/20 - Past Medical/Surgical History Diabetic: No -: Previous CVA -: Previous TIA -: Seizure disorder -: Hyperlipidemia -: Chronic headaches -: Chronic back pain, DDD/DJD of the spine, 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 Mother Medical History: Diabetes - Social History Smoking Status: Former smoker Alcohol use: No CD- Drugs: No Caffeine use: Yes Review of Systems 10-point ROS is otherwise unremarkable Physical Examination - Physical Exam General: Alert, In no apparent distress, Oriented x3 HEENT: Atraumatic, PERRLA, Mucous membr. moist/pink, Other ( Facial trauma and bruising), EOMI, Sclerae nonicteric Neck: Supple, 2+ carotid pulse no bruit, No LAD, Without JVD or thyroid abnormality Respiratory: Clear to auscultation bilaterally, Normal air movement Cardiovascular: Regular rate/rhythm, Normal S1 S2 Gastrointestinal: Normal bowel sounds, No tenderness Musculoskeletal: No clubbing, No swelling, No tenderness Integumentary: No rashes Neurological: Normal gait, Normal speech, Normal strength at 5/5 x4 extr, Normal tone, Sensation intact, Cranial nerves 3-12 intact, Normal affect Lymphatics: No axilla or inguinal lymphadenopathy - Studies Laboratory Data (last 24 hrs) 05/20/22 13:49: PT 11.3, INR 1.03, APTT 32.8 05/20/22 13:49: WBC 6.80, Hgb 14.5, Hct 42.8, Plt Count 289 05/20/22 13:49: Sodium 139, Potassium 3.6, BUN 20 H, Creatinine 0.74, Glucose 106 Assessment & Plan - Problems (Diagnosis) (1) Altered mental status Onset Date: 02/23/15 Current Visit: No Status: Acute Qualifiers: Altered mental status type: transient alteration of awareness Qualified Code(s): R40.4 - Transient alteration of awareness (2) History of CVA (cerebrovascular accident) Current Visit: No Status: Chronic (3) Seizure Onset Date: 08/09/16 Current Visit: No Status: Chronic - Plan 1. MRI of the brain 2. Echocardiogram and carotid Doppler 3. Anti-platelet therapy and statin therapy 4. Neurology consultation 5. Physical therapy/occupational therapy/speech therapy evaluation 6. Modified barium swallow study 7. DVT prophylaxis Discharge Plan: Home Plan to discharge in: Greater than 2 days - Advance Directives Does patient have a Living Will: No Does patient have a Durable POA for Healthcare: No - Code Status/Comfort Care Code Status Assessed: Yes Code Status: Full Code Critical Care: No Time Spent Managing PTS Care (In Minutes): 35
[2022-05-20] MEDS: ATORVASTATIN 80 MG TAB PO SCH (21:00)
[2022-05-20] MEDS ORDERED: MORPHINE 2 MG/ML SYR IV ONE (21:45)
[2022-05-20] MEDS ORDERED: LORazepam 2 MG/ML VIAL IV ONE (21:48)
[2022-05-20] MEDS: ONDANSETRON 4 MG/2 ML VIAL IV PRN (22:07)
[2022-05-20 22:38] VITALS: BMI 23.6
[2022-05-21] MEDS ORDERED: HYDROMORPHONE HCL 0.5 MG/0.5 ML INJ IV ONE (00:45)
[2022-05-21] MEDS ORDERED: PROMETHAZINE INJ 25 MG/ML AMP IV ONE (01:27)
[2022-05-21] MEDS: HYDROMORPHONE HCL 0.5 MG/0.5 ML INJ IV PRN ×4 (04:46→21:41)
[2022-05-21] MEDS: ONDANSETRON 4 MG/2 ML VIAL IV PRN (04:49)
[2022-05-21 05:08] LABS: Absolute Lymphocytes (CBC) 2.3 K/uL (0.7-4.9); Hematocrit 38.1 % (39.6-49.0); Lymphocytes % 33.2 % (15.3-44.8); MCV 94.4 fL (80-100); MPV 8.6 fL (7.6-11.3); RBC Red Blood Cell Count 4.04 M/uL (4.33-5.43)
[2022-05-21 05:11] LABS: Protime INR 1.05
[2022-05-21 05:24] LABS: AST/SGOT 12 U/L (15-37); Albumin 2.9 g/dL (3.4-5.0); Alkaline Phosphatase 57 U/L (45-117); BUN Blood Urea Nitrogen 17 mg/dL (7-18); Bicarbonate 30 mmol/L (21-32); Bilirubin Total 0.3 mg/dL (0.2-1.0); Glomerular Filtration Rate 101 ml/min (=/>90); Glucose Level 91 mg/dL (74-106); HDL Cholesterol 37 mg/dL (40-60); LDL Cholesterol, Calculated 115 mg/dL (<130); Magnesium 2.3 mg/dL (1.6-2.4); Potassium 4.1 mmol/L (3.5-5.1); Protein, Total 6.6 g/dL (6.4-8.2); Sodium Level 143 mmol/L (136-145)
[2022-05-21 05:27] LABS: ALT/SGPT < 10 U/L (16-61)
[2022-05-21] MEDS: NA CHLORIDE 0.9% 1,000 ML IV SCH ×2 (05:43→21:41)
[2022-05-21] MEDS ORDERED: INFLUENZA VACCINE (for 6+ mo) 0.5 ML DOSE IMVAC ONE (08:00)
[2022-05-21] MEDS ORDERED: PNEUMOCOCCAL VACCINE 0.5 ML IMVAC ONE (08:00)
[2022-05-21] MEDS: CLOPIDOGREL 75 MG TABLET PO SCH ×2 (08:25→10:14)
[2022-05-21] MEDS: ASPIRIN EC 81 MG TAB PO SCH ×3 (08:25→10:14)
[2022-05-21] MEDS ORDERED: ENOXAPARIN 40 MG/0.4 ML SQ SCH ×2 (09:00→17:00)
[2022-05-21] MEDS ORDERED: LORazepam 2 MG/ML VIAL IV ONE (11:44)
--- NOTE | 2022-05-21 14:51 | RAD REPORT ---
EXAM DESCRIPTION: Head Brain Wo Cont CLINICAL HISTORY: 71 years Male, Severe SAMS S/P TNK TECHNIQUE: Helical CT axial images are obtained from the base of skull through the vertex without IV contrast. Multiplanar reconstruction. This exam was performed according to our departmental dose-opt imization program, which includes automated exposure control, adjustment of the mA and/or kV accordin g to patient size and/or use of iterative reconstruction technique. COMPARISON: CT brain performed one day prior to FINDINGS: BRAIN: No infarcts. No parenchymal hemorrhage, intra-axial mass, mass effect, or midline shift. No abnormal extra-axial fluid collections. VENTRICLES: Ventricles are normal in size and configuration. No hydrocephalus. CALVARIUM: Moderate size hematoma anterior midline frontal scalp, unchanged. Bone windows show no sk ull fracture or calvarial lesions. PARANASAL SINUSES AND MASTOIDS: Mild mucosal thickening left maxillary sinus floor. Otherwise vickey r paranasal sinuses. Mastoid air cells are clear. IMPRESSION: 1. No acute intracranial disease. No parenchymal hemorrhage. 2. Moderate size hematoma anterior midline frontal scalp, unchanged. Electronically signed by: Yimi Beasley MD 05/21/2022 1:00 AM [employer] Due to temporary technical issues with the PACS/Fluency reporting system, reports are being signed by the in house radiologists without review as a courtesy to insure prompt reporting. The interpreting radiologist is fully responsible for the content of the report.
--- NOTE | 2022-05-21 16:22 | RAD REPORT ---
EXAM DESCRIPTION: MRI - Brain Wo Cont - 05/21/2022 3:47 pm CLINICAL HISTORY: cva COMPARISON: Head CT May 21, 2022 TECHNIQUE: Axial, sagittal, and coronal magnetic resonance images of the brain were obtained. FINDINGS: A small right frontal scalp hematoma. No significant abnormal signal within the brain. Diffusion-weighted/ADC mapping does not reveal evidence of acute infarction. The ventricles are normal caliber. An extra-axial fluid collection is not noted. Fluid within the sinuses/mastoids is not seen IMPRESSION: No acute intracranial abnormality noted
[2022-05-21] MEDS: ATORVASTATIN 80 MG TAB PO SCH (21:41)
--- NOTE | 2022-05-21 23:41 | CON ---
Reason For Consultation: Consultation called because of altered mental status and possible stroke. History Of Present Illness: Mr. Graf is a 71-year-old patient who fell just 2 days ago on his fa ce and has bruising on his face. He has hypertension, migraine, history of seizures, but the reason for his hospital emergency room visit and admission is sudden onset of difficulty expressing himself and ongoing headache. The patient's was at home with him when he was actually in another room a nd she heard him knocking on the wall. When she came to the room, she notes he could not express him self or communicate what was going on. The patient's notes he has had similar presentations rel ated to seizures in the past; however, it is unclear that he had a seizure because he did not have an y witnessed episodes. No reported tongue biting or bowel or bladder loss. [facility] within an hour of onset of the symptoms and was evaluated and found to have an NIH Stroke Scale elevated to 15 initially, then 18. The patient had a negative head CT scan and after evaluation and the patient's family being consented and the patient himself, the course of action was to give TNKs for the possibility of an acute stroke and to make sure he is loaded with Keppra to cover for the pos sibility of seizures as well. The patient did receive TNKs at 1440 and his arrival time at the [facility] was 1335. He was sent to the ICU and had neuro checks. The patient improved over the weekend an d his NIH Stroke scale this morning was 6. His repeat head CT scan showed no hemorrhagic conversion or no acute ischemic or hemorrhagic findings. Brain MRI also ruled out the presence of an acute isch emic or hemorrhagic stroke and essentially unremarkable study. Magnetic resonance angiogram study do dc of his head and neck revealed no significant stenosis. His blood work showed essentially unremark able complete blood count with differential and normal coagulation panel. Chemistries essentially un remarkable. The liver function studies unremarkable. LDL cholesterol was 115, HDL 37, and triglycer ides 104. Urinalysis unremarkable. Urine toxicology screen negative. COVID-19 testing was negative . At the time of my evaluation of the patient in the emergency room, he was alert and oriented to si tuation, place, and person. He followed all commands appropriately with no difficulty. Past Medical History: Includes reported stroke or transient ischemic attack, seizures, dyslipidemia, chronic headache, chronic low back pain, tobacco use, COPD, and hypertension. Past Surgical History: Appendectomy, coronary artery bypass grafting in November of 2016, and back chery courtney. Social History: The patient lives with a partner at home. Has 2 children. 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 Family History: Positive for seizures in a brother. Father had heart disease and blood disorder. F ather had heart attack. Mother had diabetes. Social History: Drinks caffeinated beverages. Denies alcohol or tobacco. Review of Systems: He did have history of headaches, some myalgias, arthralgias and bruising in the face and arms and ra ccoon eye appearance of his eyes. Physical Examination: HEENT: He is normocephalic and the sclerae are anicteric. He has marked hyperemia around the eyes i ndicating some trauma, which the patient did suffer 2 days prior to his arrival at the hospital after he fell on a concrete surface. Neurologic: His cranial nerves, however, are not disrupted. They are intact. On his motor examinat ion, he has diffuse weakness, more noted on the lower than upper extremity, 3/4 upper extremity proxi tamika and distally. Sensation decreased in stocking-glove fashion to light touch and temperature. C oordination of his upper extremities intact. Lower extremities with mild dysmetria and with coordina tion activities. On gait, he did require maximum assistance and ambulated well 4 feet with the physi melissa therapist and a belt. Assessment: Mr. Graf is a 71-year-old patient with a possible threatened stroke producing aphasi a. He did receive TNKs and has not had any residual aphasia, either expressive or receptive. MRI of the brain is negative for acute ischemic hemorrhagic stroke and he does not have any hemorrhagic con version after receiving TNKs. He has multiple comorbid conditions that are noted above. At this poi nt, he is now out past 24 hours of receiving TNKs and should be placed on aspirin, folic acid, and hi gh-dose statin. His LDL cholesterol is 115, target will be less than 70. He requires significant he lp for his transfers and actually very short distance mobilization and again has multiple comorbid co nditions. At this point, he is likely to be best served in an acute inpatient rehabilitation unit wh ere he can regain strength, coordination, balance and his endurance and performance of his activities of daily living. Plan: 1.As noted aspirin, Plavix, folic acid, and high-dose statin. 2.Inpatient rehabilitation referral. 3.Permissive hypertension. His blood pressure is systolic now 106 over diastolic of 42 and earlier in the day 123/62. We will hold off on any antihypertensive medications. Pulse is normal at 62, res piratory rate normal, and temperature is intact with 97.3 and afebrile. The patient then would benefit from inpatient rehabilitation and it is my recommendation that he be p laced in the rehabilitation unit for physical, occupational, and speech therapy. MARI/QAMAR Voice ID: [id number] Report ID: [id number]
[2022-05-21 23:53] VITALS: O2SAT 98
--- NOTE | 2022-05-22 01:33 | P.PN ---
Subjective Date of Service: 05/21/22 Subjective: No new changes, No C/O voiced, Improving Review of Systems 10-point ROS is otherwise unremarkable Physical Examination - Vital Signs Temperature: 97.9 F Blood Pressure: 109/52 Pulse: 58 Respirations: 15 Pulse Ox (%): 96 - Physical Exam General: Alert, In no apparent distress HEENT: Atraumatic, PERRLA, EOMI Neck: Supple, JVD not distended Respiratory: Clear to auscultation bilaterally, Normal air movement Cardiovascular: Regular rate/rhythm, Normal S1 S2 Gastrointestinal: Normal bowel sounds, No tenderness Musculoskeletal: No tenderness Integumentary: No rashes Neurological: Normal speech, Normal tone, Normal affect Lymphatics: No axilla or inguinal lymphadenopathy - Studies Medications List Reviewed: Yes Assessment & Plan - Problems (Diagnosis) (1) Altered mental status Onset Date: 02/23/15 Current Visit: No Status: Acute Qualifiers: Altered mental status type: transient alteration of awareness Qualified Code(s): R40.4 - Transient alteration of awareness (2) History of CVA (cerebrovascular accident) Current Visit: No Status: Chronic (3) Seizure Onset Date: 08/09/16 Current Visit: No Status: Chronic - Plan 1. MRI of the brain pending 2. Echocardiogram and carotid Doppler 3. Anti-platelet therapy and statin therapy 4. Neurology consultation appreciated 5. Physical therapy/occupational therapy/speech therapy evaluation 6. Modified barium swallow study 7. DVT prophylaxis anticipate discharge home in the morning Discharge Plan: Home Plan to discharge in: Greater than 2 days - Advance Directives Does patient have a Living Will: No Does patient have a Durable POA for Healthcare: No - Code Status/Comfort Care Code Status: Full Code Critical Care: No Time Spent Managing PTS Care (In Minutes): 35
[2022-05-22 05:02] LABS: Absolute Lymphocytes (CBC) 1.3 K/uL (0.7-4.9); Hematocrit 37.4 % (39.6-49.0); MCV 93.8 fL (80-100); MPV 8.6 fL (7.6-11.3); RBC Red Blood Cell Count 3.99 M/uL (4.33-5.43)
[2022-05-22 05:06] LABS: Protime INR 1.08
[2022-05-22 05:12] LABS: Magnesium 2.2 mg/dL (1.6-2.4); Phosphorus 2.9 mg/dL (2.5-4.9)
[2022-05-22] MEDS: HYDROMORPHONE HCL 0.5 MG/0.5 ML INJ IV PRN ×2 (06:39→10:43)
--- NOTE | 2022-05-22 07:02 | ECHO ---
HEIGHT: 5 ft 7 in WEIGHT: 151 lb 0 oz DATE OF STUDY: 05/21/[address]: Sena Osuna MD 2-DIMENSIONAL: YES M.MODE: YES DOPPLER: YES COLOR FLOW: YES TDS: PORTABLE: YES DEFINITY: BUBBLE STUDY: DIAGNOSIS: STROKE CARDIAC HISTORY: CATHERIZATION: SURGERY: PROSTHETIC VALVE: PACEMAKER: MEASUREMENTS (cm) DIASTOLIC (NORMALS) SYSTOLIC (NORMALS) IVSd 1.0 (0.6-1.2) LA Diam 4.1 (1.9-4.0) LVEF 61% LVIDd 4.1 (3.5-5.7) LVIDs 2.8 (2.0-3.5) %FS 32% LVPWd 1.3 (0.6-1.2) Ao Diam 3.4 (2.0-3.7) 2 DIMENSIONAL ASSESSMENT: RIGHT ATRIUM: NORMAL LEFT ATRIUM: ENLARGED RIGHT VENTRICLE: NORMAL LEFT VENTRICLE: NORMAL TRICUSPID VALVE: NORMAL MITRAL VALVE: NORMAL PULMONIC VALVE: NORMAL AORTIC VALVE: NORMAL PERICARDIAL EFFUSION: NONE AORTIC ROOT: NORMAL LEFT VENTRICULAR WALL MOTION: NORMAL DOPPLER/COLOR FLOW: SEE BELOW COMMENTS: 1. NORMAL LEFT VENTRICULAR EJECTION FRACTION 60-65% 2. NORMAL WALL MOTION 3. MILD TRICUSPID REGURGITATION 4. LEFT ATRIAL ENLARGEMENT TECHNOLOGIST: ROCÍO BURR
[2022-05-22] MEDS: CLOPIDOGREL 75 MG TABLET PO SCH (08:39)
[2022-05-22] MEDS: NA CHLORIDE 0.9% 1,000 ML IV SCH (13:08)
[2022-05-22 17:57] VITALS: BP 126/63; TEMP 98.2
== END 2022-05-22 16:00 | disposition home or self-care (01) | DRG 63 ==
LOC: ER 13:25 → ERHOLD 15:31 → 3RD-ICU 19:37
PROVIDERS: ADMIT Hospitalist; ATTEND Hospitalist
DX: I63.9 Cerebral infarction, unspecified (principal); R47.01 Aphasia; I10 Essential (primary) hypertension; E78.5 Hyperlipidemia, unspecified; J44.9 Chronic obstructive pulmonary disease, unspecified; G89.29 Other chronic pain; M54.50 Low back pain, unspecified; G43.909 Migraine, unspecified, not intractable, without status migrainosus; F17.210 Nicotine dependence, cigarettes, uncomplicated; R29.715 NIHSS score 15; R56.9 Unspecified convulsions; Z95.1 Presence of aortocoronary bypass graft; Z88.0 Allergy status to penicillin; Z88.6 Allergy status to analgesic agent; Z79.52 Long term (current) use of systemic steroids; Z86.73 Personal history of transient ischemic attack (TIA), and cerebral infarction without residual deficits; Z79.82 Long term (current) use of aspirin; Z90.49 Acquired absence of other specified parts of digestive tract; Z20.822 Contact with and (suspected) exposure to COVID-19
CPT/HCPCS: 36415; 70450; 70486; 70496; 70498; 70551; 71045; 71260; 72125; 74177; 76377; 80048; 80053; 80061; 80076; 80307; 81003; 81015; 82550; 82947; 83735; 83880; 84100; 84484; 85025; 85610; 85730; 87811; 92526; 92610; 92977; 93005; 93306; 96365; 96374; 97116; 97161; 97530; 99285; 99291; 99292; J1170; J1650; J1953; J2270; J2405; J3101; J3360; J7030; Q9967

== ENCOUNTER 2022-08-13 03:22 | Emergency (ER) | payer OTHER ==
--- OUTSIDE RECORDS SUMMARY | 2022-08-13 03:32 | XMS REPORT | Continuity of Care Document ---
:1950 Author Organization [facility] t Address [address] [facility] [address] [place] [address] Care Team Providers Name Role Phone Uli [...] 00:00: Medical awareness awareness 00 Cent er COPD COPD Disease Recurre [facility]25 [facility] obstructiv obstructiv 00:00: Wa dical e e 00 Center pulmonary pulmonary disease) disease) Altered Altered Disease Active [facility] mental mental 8-25 [facility] status status 00:00: Medical 00 Epes Ptosis, Ptosis, Disease Active [facility] left left 8-25 [facility] 00:00: Medical 00 Epes S/P CABG x S/P CABG x Disease [...] fibrillati fibrillati 00:00: Me dical on on Epes Pulmonary Pulmonary Disease Active [facility] embolism embolism 8-14 [facility] 00:00: Medical Epes Left-sided Left-sided Disease Active [facility] muscle muscle 6-26 [facility] weakness weakness 00:00: Medica l 00 Epes Muscle Muscle Disease Active [facility] cramps cramps 6-26 [facility] 00:00: Medical Epes Tension Tension Disease Active [facility] type type 6-26 [facility] headache headache 00:00: Medica l 00 Center CVA CVA Disease Recurre [facility] (cerebral (cerebral nce 6-24 [facility] vascular vascular 00:00: Medica l accident) accident) 00 Cent er Seizure Seizure Disease Recurre [facility] disorder disorder nce 6-24 [facility] 00:00: Medical 00 Epes History of History of Disease Recurre [facility] atrial atrial nce 6-24 [facility] fibrillati fibrillati 00:00: Me dical on Center Chronic Chronic Disease Active [facility] anticoagul anticoagul 6-24 Thao kes ation ation 00:00: Medical 00 Epes Cellulitis Cellulitis Disease Active [facility] of of 3-19 [facility] 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 00:00: 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 space of 00 Epes mouth mouth Mandibular Mandibular Disease Active [facility] abscess abscess 3-18 [facility] 00:00: Medical 00 Center CVA CVA Diagnosis Active 2011-09-21 Mem oria Active 09-12 14:49:00 l 09/13/2011 06:00: Richard vargas 00 Rehabilita tion Dysarthria Problem Active 2011-10-03 M emoria Dysarthria 08:09:33 l Active Miguel Problem 10/03/2011 [facility] Weakness Weakness Problem Active 2011-10-03 Memoria Active 08:09:33 l Problem [place] 10/03/2011 [facility] CVA CVA Diagnosis Active 2011-09-21 Mem oria [...] 3-16 [facility] adverse 00:00: Medical reaction 00 Epes s aspirin aspirin Active Memoria l [place] codeine codeine Active Memoria l Miguel penicill penicill Active Memori a ins ins l [place] Family History Family Member Diagnosis Comments Start Date Stop Date Source Natural mother Diabetes [facility] Social History Social Habit Start Date Stop Date Quantity Comments Source History of tobacco Smokes tobacco [facility] Alcohol intake 2016-12-13 2016-12-[address] [facility] 00:00:00 00:00:00 non-drinker of Medical Ce nter alcohol (finding) Cigarettes smoked 2016-11-26 2016-11-[address] [facility] current (pack per 00:00:00 00:00:00 Medical Center day) - Reported Tobacco use and 2016-06-30 2016-06-[address] [facility] Thao kes exposure 00:00:00 00:00:00 Medical Center Sex Assigned At [address] Thao reyes 00:00:00 00:00:00 Medical Center Smoking Status Start Date Stop Date Source Current every day smoker 2016-06-30 00:00:00 [facility] Medications Ordered Filled Start Stop [...] St l (BROVANA) -08 (15 mcg [facility] 15 mcg/2 mL 00:00: total) by M edBT Imaging nebulizer 00 nebulizati Cent er solution on [...] 00 by mouth Center tablet daily. Soma Yes 1, PO, Memoria 6-16 Substituti l 23:36: on Miguel 37 Allowed, TAB Soma 2011-0 Yes 1, PO, Memoria 6-16 Substituti l 23:36: on [place] 37 Allowed, TAB Soma 2011- Yes 1, PO, Memoria 6-16 Substituti l 23:36: on [place] 37 Allowed, TAB OXYcodone Yes 1, PO, Memori a 6-16 PRN, as l 23:36: needed for [place] 23 pain, Substituti on Allowed, TAB OXYcodone Yes 1, PO, Memori a 6-16 PRN, as l 23:36: needed for Miguel 23 pain, Substituti on Allowed, TAB OXYcodone Yes 1, PO, Memori a 6-16 PRN, as l 23:36: needed for Miguel 23 pain, Substituti on Allowed, TAB Ambien 5 mg Yes Meilani H 5 mg, 1 Memoria oral tablet 6-15 [place] tab, PO, l 19:27: Bedtime, Miguel 59 30 tab, Substituti on Allowed, TAB Ambien 5 mg Yes Meilani H 5 mg, 1 Memoria oral tablet 6-15 [place] tab, PO, l 19:27: Bedtime, Miguel 59 30 tab, Substituti on Allowed, TAB Ambien 5 mg Yes Meilani H 5 mg, 1 Memoria oral tablet 6-15 [place] tab, PO, l 19:27: Bedtime, [place] 59 30 tab, Substituti on Allowed, TAB Keppra 750 Yes Meilani H 750 mg, 1 Memoria mg oral 6-15 [place] tab, PO, l tablet 19:27: Q12H, 60 [place] 52 tab, Substituti on Allowed, TAB Keppra 750 Yes Meilani H 750 mg, 1 Memoria mg oral 6-15 [place] tab, PO, l tablet 19:27: Q12H, 60 Miguel 52 tab, Substituti on Allowed, TAB Keppra 750 Yes Meilani H 750 mg, 1 Memoria mg oral 6-15 [place] tab, PO, l tablet 19:27: Q12H, 60 Miguel 52 tab, Substituti on Allowed, TAB famotidine 2011-0 Yes Meilani H 20 mg, 1 Memoria 20 mg oral 6-15 [place] tab, PO, l tablet 19:27: BID, 60 Miguel 44 tab, Substituti on Allowed, TAB famotidine 2011-0 Yes Meilani H 20 mg, 1 Memoria 20 mg oral 6-15 [place] tab, PO, l tablet 19:27: BID, 60 Miguel 44 tab, Substituti on Allowed, TAB famotidine 2011-0 Yes Meilani H 20 mg, 1 Memoria 20 mg oral 6-15 [place] tab, PO, l tablet 19:27: BID, 60 Miguel 44 tab, Substituti on Allowed, TAB Colace 100 2011-0 Yes Meilani H 100 mg, 1 Memoria mg oral 6-15 [place] cap, PO, l capsule 19:27: BID, 60 Miguel 40 cap, Substituti on Allowed, CAP Colace 100 2011-0 Yes Meilani H 100 mg, 1 Memoria mg oral 6-15 [place] cap, PO, l capsule 19:27: BID, 60 [place] 40 cap, Substituti on Allowed, CAP Colace 100 2011-0 Yes Meilani H 100 mg, 1 Memoria mg oral 6-15 [place] cap, PO, l capsule 19:27: BID, 60 Miguel 40 cap, Substituti on Allowed, CAP Plavix 75 2011-0 Yes Meilani H 75 mg, 1 Memoria mg oral 6-15 [place] tab, PO, l tablet 19:27: Daily, 30 Richard n 36 tab, Substituti on Allowed, TAB Plavix 75 2011-0 Yes Meilani H 75 mg, 1 Memoria mg oral 6-15 [place] tab, PO, l tablet 19:27: Daily, 30 Richard n 36 tab, Substituti on Allowed, TAB Plavix 75 2011-0 Yes Meilani H 75 mg, 1 Memoria mg oral 6-15 [place] tab, PO, l tablet 19:27: Daily, 30 Richard n 36 tab, Substituti on Allowed, TAB atorvastati 2011-0 Yes Meilani H 80 mg, 1 Memoria [...] Substituti on Allowed, Maintenanc e, TAB Percocet Yes Meilani H 1 tab, PO, Memoria 5/325 oral 6-15 [place] BID, PRN, l tablet 19:27: 60 tab, as Amira nn 30 needed for pain, Substituti on Allowed, Maintenanc e, TAB Percocet Yes Meilani H 1 tab, PO, Memoria 5/325 oral 6-15 [place] BID, PRN, l tablet 19:27: 60 tab, as Amira nn 30 needed for pain, Substituti on Allowed, Maintenanc e, TAB Ambien CR No Marcial De 6.25 mg, Memoria 6-09 [place] Route: PO, l 02:00: Bedtime, Start date: 09/21/11 21:00:00, Duration: 30 day, Stop date: 10/20/11 21:00:00 Ambien 2011-0 No Marcial De 5 mg, 1 Me moria 6-09 [place] tab, l 02:00: Route: PO, Drug form: TAB, Bedtime, Start date: 09/21/11 21:00:00, Duration: 30 day, Stop date: 10/20/11 21:00:00 Ambien CR 2011-0 No Marcial De 6.25 mg, Memoria 6-09 [place] Route: PO, l 02:00: Bedtime, [place] 00 Start date: 09/21/11 21:00:00, Duration: 30 day, Stop date: 10/20/11 21:00:00 Ambien 2012-0 No Marcial De 5 mg, 1 Me moria 6-09 [place] tab, l 02:00: Route: PO, [place] 00 Drug form: TAB, Bedtime, Start date: 09/21/11 21:00:00, Duration: 30 day, Stop date: 10/20/11 21:00:00 Ambien CR 2012-0 No Marcial De 6.25 mg, Memoria 6-09 [place] Route: PO, l 02:00: Bedtime, Miguel Start date: 09/21/11 21:00:00, Duration: 30 day, Stop date: 10/20/11 21:00:00 Ambien 2011-0 No Marcial De 5 mg, 1 Me moria 6-09 [place] tab, l 02:00: Route: PO, [place] Drug form: TAB, Bedtime, Start date: 09/21/11 [...] 30 day, Stop date: 10/21/11 7:00:00 Plavix 2012-0 No Jeff 75 mg, 1 Memori a [...] least once every 8 hours Milk of 0 No Jeff 30 mL, Memoria Magnesia -02 Jef Route: PO, l 03:49: [place] Drug Form: Richard n 00 SUSP, Daily, PRN Constipati on, Start date: 09/14/11 22:49:00, Duration: 30 day, Stop date: 10/14/11 22:48:00 bisacodyl 2011-0 No Jeff 10 mg, 1 Mem oria -02 Jef supp, l 03:49: [place] Route: IA, Richard n 00 Drug form: SUPP, Bedtime, PRN Constipati on, Start date: 09/14/11 22:49:00, Duration: 30 day, Stop date: 10/14/11 22:48:00 zolpidem 2011- No Marcial De 5 mg, 1 Memoria -02 [place] tab, l 03:49: Route: PO, Miguel 00 Drug form: TAB, Bedtime, PRN Insomnia, Start date: 09/14/11 22:49:00, Duration: 30 day, Stop date: 10/14/11 22:48:00 Saline No Jeff 3 mL, Memoria Flush 0.9% 6-02 Jef Route: l 03:49: [place] IVP, Drug Form: INJ, Q8H, PRN Line Flush, Start date: 09/14/11 22:49:00, Duration: 30 day, Stop date: 10/14/11 22:48:00, Administer at least once every 8 hoursAdmin ister at least once every 8 hours Milk of No Jeff 30 mL, Memoria Magnesia 6-02 Jef Route: PO, l 03:49: [place] Drug Form: Richard n 00 SUSP, Daily, PRN Constipati on, Start date: 09/14/11 22:49:00, Duration: 30 day, Stop date: 10/14/11 22:48:00 bisacodyl No Jeff 10 mg, 1 Mem oria 6-02 Jef supp, l 03:49: [place] Route: IA, Richard n 00 Drug form: SUPP, Bedtime, PRN Constipati on, Start date: 09/14/11 22:49:00, Duration: 30 day, Stop date: 10/14/11 22:48:00 zolpidem No Marcial De 5 mg, 1 Memoria 6-02 [place] tab, l 03:49: Route: PO, [place] Drug form: TAB, Bedtime, PRN Insomnia, Start date: 09/14/11 22:49:00, Duration: 30 day, Stop date: 10/14/11 22:48:00 Saline No Jeff 3 mL, Memoria Flush 0.9% 6-02 Jef Route: l 03:49: [place] IVP, Drug Form: INJ, Q8H, PRN Line Flush, Start date: 09/14/11 22:49:00, Duration: 30 day, Stop date: 10/14/11 22:48:00, Administer at least once every 8 hoursAdmin ister at least once every 8 hours Milk of No Jeff 30 mL, Memoria Magnesia 6-02 Jef Route: PO, l 03:49: [place] Drug Form: Richard n 00 SUSP, Daily, PRN Constipati on, Start date: 09/14/11 22:49:00, Duration: 30 day, Stop date: 10/14/11 22:48:00 bisacodyl 2011- No Jeff 10 mg, 1 Mem oria 6-02 Jef supp, l 03:49: [place] Route: IA, Richard n 00 Drug form: SUPP, Bedtime, [...] 750 mg, 3 M emoria mg oral 6-02 Jef tab, l tablet 02:00: [place] Route: PO, Herm graham 00 Drug form: TAB, Q12H, Start date: 09/14/11 21:00:00, Duration: 30 day, Stop date: 10/14/11 9:00:00 Keppra 750 2011-0 No Jeff 750 mg, 3 M emoria mg oral 6-02 Jef tab, l tablet 02:00: [place] Route: PO, Herm graham 00 Drug form: TAB, Q12H, Start date: 09/14/11 21:00:00, Duration: 30 day, Stop date: 10/14/11 9:00:00 Keppra 750 2011-0 No Jeff 750 mg, 3 M emoria mg oral 6-02 Jef tab, l tablet 02:00: [place] Route: [...] 100 mg, 1 M emoria mg oral 6- Jef cap, l capsule 22:00: [place] Route: PO, [place] Drug form: CAP, BID, Start date: 09/14/11 17:00:00, Duration: 30 day, Stop date: 10/14/11 9:00:00 atorvastati 2011-0 No Jeff 80 mg, 1 M emoria n - Jef tab, l 22:00: [place] Route: PO Richard n 00 Drug form: TAB, QPM, Start date: 09/14/11 17:00:00, Duration: 30 day, Stop date: 10/13/11 17:00:00 famotidine 2011-0 No Jeff 20 mg, 1 Me moria 20 mg oral - Jef tab, l tablet 22:00: [place] Route: PO Herm graham 00 Drug form: TAB, BID, Start date: 09/14/11 17:00:00, Duration: 30 day, Stop date: 10/14/11 9:00:00 Colace 100 2011-0 No Jeff 100 mg, 1 M emoria mg oral - Jef cap, l capsule 22:00: [place] Route: PO, [place] Drug form: CAP, BID, Start date: 09/14/11 17:00:00, Duration: 30 day, Stop date: 10/14/11 9:00:00 atorvastati 2011-0 No Jeff 80 mg, 1 M emoria n -01 Jef tab, l 22:00: [place] Route: PO, Richard n 00 Drug form: TAB, QPM, Start date: 09/14/11 17:00:00, Duration: 30 day, Stop date: 10/13/11 17:00:00 famotidine 2012-0 No Jeff 20 mg, 1 [...] Jef mL, Route: l 20:00: [place] SUB-Q, [place] 00 Drug form: INJ, Q24H, Start date: 09/14/11 15:00:00, Duration: 30 day, Stop date: 10/13/11 9:00:00 enoxaparin 2011-0 No Jeff 40 mg, 0.4 Memoria 6-01 Jef mL, Route: l 20:00: [place] SUB-Q, [place] 00 Drug form: INJ, Q24H, Start date: [...] Jeff 1 tab, Memori a 5/325 oral 6- Jef Route: PO, l tablet 19:58: [place] Drug Form: Herm graham 00 TAB, Q4H, PRN Pain, Start date: 09/14/11 14:58:00, Duration: 30 day, Stop date: 10/14/11 14:57:00 Percocet 2011-0 No Jeff 1 tab, Memori a 5/325 oral 6- Jef Route: PO, l tablet 19:58: [place] Drug Form: Herm graham 00 TAB, Q4H, PRN Pain, Start date: 09/14/11 14:58:00, Duration: 30 day, Stop date: 10/14/11 14:57:00 Vital Signs Vital Name Observation Time Observation Value Comments Source Systolic (mm Hg) 2011-10-01 10:34:00 Luan rial Miguel Respitory Rate 2011-10-01 10:34:00 Memori al [place] Heart Rate 2011-10-01 10:34:00 [facility] [place] Temperature Oral (F) 2011-10-01 10:34:00 97.6 F [facility] Miguel Diastolic (mm Hg) 2011-10-01 10:34:00 Mem orial [place] Diastolic (mm Hg) 2011-10-01 00:44:00 Mem orial [place] Respitory Rate 2011-10-01 00:44:00 Memori al [place] Heart Rate 2011-10-01 00:44:00 [facility] [place] Systolic (mm Hg) 2011-10-01 00:44:00 Luan rial Miguel Temperature Oral (F) 2011-10-01 00:44:00 98.1 F [facility] [place] Systolic (mm Hg) 2011-09-30 21:00:00 Luan rial Miguel Diastolic (mm Hg) 2011-09-30 21:00:00 Mem orial [place] Heart Rate 2011-09-30 21:00:00 [facility] [place] Respitory Rate 2011-09-30 21:00:00 Memori al [place] Temperature Oral (F) 2011-09-30 10:03:00 97.8 F [facility] [place] Height 2011-09-15 03:49:00 172.72 cm [facility] Miguel Weight 2011-09-15 03:49:00 [facility] [place] Procedures This patient has no known procedures. Encounters Start End Encounter Admission Attending Care Care Encounter Source Date/Time Date/Time Type Type Clinicians Facility Department ID 2011-09-14 2011-10-01 MYRON BAKER [id number] Memoria 22:16:00 13:00:00 50 l Miguel 2011-09-14 2011-10-01 MYRON BAKER [id number] Memoria 22:16:00 13:00:00 50 l Miguel Results Test Description Test Time Test Comments Results Result Comments Source B-TYPE NATRIURETIC FACTOR (BNP) 2016-12-21 05:56:00 Test Item Value Reference Range Interpretation Comme nts B-TYPE NATRIURETIC PEPTIDE (BEAKER) (test code = 700) 136 pg/mL 0-100 H COMPREHENSIVE METABOLIC [id number] 05:53:00 Test Item Value Reference Range Interpretation [...] NOT APPLICABLE FOR DIALYSIS PATIEN TS. POCT-GLUCOSE [id number] 16:33:00 Test Item Value Reference Range Interpretation Comments POC-GLUCOSE METER 116 mg/dL 70-110 H TESTED AT [place] [address] ([facility]) (test code = TISHA Cazares [place] 1538) [id number] POCT-GLUCOSE [id number] 11:08:00 Test Item Value Reference Range Interpretation Comments POC-GLUCOSE METER 133 mg/dL 70-110 H TESTED AT [place] [address] ([facility]) (test code = TISHA Cazares [place] 1538) [id number] POCT-GLUCOSE [id number] 06:11:00 Test Item Value Reference Range Interpretation Comments POC-GLUCOSE METER 105 mg/dL 70-110 TESTED AT [place] [address] ([facility]) (test code = TISHA Cazares [place] 1538) [id number] POCT-GLUCOSE [id number] 20:28:00 Test Item Value Reference Range Interpretation Comments POC-GLUCOSE METER 124 mg/dL 70-110 H TESTED AT [place] [address] ([facility]) (test code = TISHA Cazares [place] 1538) [id number] POCT-GLUCOSE [id number] 16:46:00 Test Item Value Reference Range Interpretation Comments POC-GLUCOSE METER 113 mg/dL 70-110 H TESTED AT [place] [address] ([facility]) (test code = TISHA Cazares [place] 1538) [id number] POCT-GLUCOSE [id number] 11:46:00 Test Item Value Reference Range Interpretation Comments POC-GLUCOSE METER 113 mg/dL 70-110 H TESTED AT [place] [address] ([facility]) (test code = TISHA Cazares [place] 1538) [id number] URINE [id number] 09:54:00 Test Item Value Reference Range Interpretation Comments CULTURE ([facility]) (test KLEBSIELLA A >100, 000 col/mL [...] S Sulfamethoxazole (test code = 47) POCT-GLUCOSE [id number] 06:46:00 Test Item Value Reference Range Interpretation Comments POC-GLUCOSE METER 111 mg/dL 70-110 H TESTED AT [place] [address] ([facility]) (test code = TISHA Cazares [facility] 1538) [id number] POCT-GLUCOSE [id number] 20:48:00 Test Item Value Reference Range Interpretation Comments POC-GLUCOSE METER 128 mg/dL 70-110 H TESTED AT [place] [address] ([facility]) [facility] 1538) [id number] POCT-GLUCOSE [id number] 16:00:00 Test Item Value Reference Range Interpretation Comments POC-GLUCOSE METER 127 mg/dL 70-110 H TESTED AT [place] [address] ([facility]) (test code = [facility] Sage [facility] 1538) [id number] POCT-GLUCOSE [id number] 11:16:00 Test Item Value Reference Range Interpretation Comments POC-GLUCOSE METER 273 mg/dL 70-110 H TESTED AT [place] [address] ([facility]) (test code = [facility] Sage [facility] 1538) [address] COMPREHENSIVE METABOLIC [id number] 06:44:00 Test Item Value Reference Range Interpretation Comments TOTAL PROTEIN 6.4 gm/dL 6.0-8.3 ([facility]) (test code = 770) ALBUMIN ([facility]) 2.9 g/dL 3.5-5.0 L (test code = 1145) ALKALINE PHOSPHATASE 109 U/L 40-150 ([facility]) (test code = 346) BILIRUBIN TOTAL < mg/dL 0.2-1.2 ([facility]) (test code = 377) SODIUM (BEAKER) [...] S NOT APPLICABLE FOR DIALYSIS PATIEN TS. [id number] 06:27:00 Test Item Value Reference Range Interpretation Comments PARTIAL THROMBOPLASTIN TIME 38.5 seconds 22.5-36.0 H (BEAKER) (test code = 760) PROTHROMBIN [id number] 06:26:00 Test Item Value Reference Range Interpretation [...] mechanical heart valves.CBC W/PLT COUNT & AUTO [id number] 06:25:00 Test Item Value Reference Range Interpretation [...] PERCENT (BEAKER) (test code = 2801) POCT-GLUCOSE [id number] 06:22:00 Test Item Value Reference Range Interpretation Comments POC-GLUCOSE METER 131 mg/dL 70-110 H TESTED AT [facility] 6720 (BEAKER) (test code = TISHA [place] 1538) [id number] URINALYSIS W/ [id number] 20:35:00 Test Item Value Reference Range Interpretation [...] code Urine, Clean Catch = 2795) POCT-GLUCOSE [id number] 20:21:00 Test Item Value Reference Range Interpretation Comments POC-GLUCOSE METER 132 mg/dL 70-110 H TESTED AT [place] [address] (BEAKER) (test code = [facility] Sage [facility] 1538) [address] POCT-GLUCOSE [id number] 16:17:00 Test Item Value Reference Range Interpretation Comments POC-GLUCOSE METER 101 mg/dL 70-110 TESTED AT [place] [address] (BEAKER) (test code = [facility] Sage [facility] 1538) [id number] POCT-GLUCOSE [id number] 13:35:00 Test Item Value Reference Range Interpretation Comments POC-GLUCOSE METER 143 mg/dL 70-110 H TESTED AT [place] [address] (BEAKER) (test code = [facility] 1538) [address] BASIC METABOLIC [id number] 06:31:00 Test Item Value Reference Range Interpretation [...] APPLICABLE FOR DIALYSIS PATIEN TS. BASIC METABOLIC [id number] 05:41:00 Test Item Value Reference Range Interpretation [...] 0-0 (BEAKER) (test code = 413) VITAMIN [id number] 06:04:00 Test Item Value Reference Range Interpretation Comments VITAMIN B12 (BEAKER) (test code = 619 pg/mL 213-816 774) [id number] 06:04:00 Test Item Value Reference Range Interpretation Comments FERRITIN (BEAKER) (test code = 361) 335 ng/mL 5-275 H Effective 03/02/2014: Reference Range ChangeNew: Male 5-275 Previous: Male 22- 322 Female 5-275 Female 10-291FOLATE, [id number] 06:04:00 Test Item Value Reference Range Interpretation Comments FOLATE (BEAKER) (test code = 362) 4.9 ng/mL >=7.0 L Effective 03/02/2014: Folate Reference Range ChangeNew: >=7.0 Previous: >=5.4BASIC METABOLIC [id number] 05:47:00 Test Item Value Reference Range Interpretation [...] (BEAKER) (test code = 413) BASIC METABOLIC [id number] 05:53:00 Test Item Value Reference Range Interpretation [...] WBC 0-0 (BEAKER) (test code = 413) [id number] 22:53:00 Test Item Value Reference Range Interpretation Comments ACTIVATED CLOTTING TIME 153 sec TEST ED AT [place] [address] ([facility]) (test code = TISHA [place] [facility]) [id number] 22:35:00 Test Item Value Reference Range Interpretation Comments ACTIVATED CLOTTING TIME 202 sec TEST ED AT [place] [address] ([facility]) (test code = TISHA [facility]ES [facility]) [id number] 22:04:00 Test Item Value Reference Range Interpretation [...] (BEAKER) (test code = 413) BASIC METABOLIC [id number] 08:43:00 Test Item Value Reference Range Interpretation [...] (BEAKER) (test code = 413) BASIC METABOLIC [id number] 06:44:00 Test Item Value Reference Range Interpretation [...] PATIEN TS. CBC W/PLT COUNT & AUTO [id number] 21:33:00 Test Item Value Reference Range Interpretation [...] 0-1 PERCENT (BEAKER) (test code = 2801) [id number] 07:21:00 Test Item Value Reference Range Interpretation Comments PHOSPHORUS (BEAKER) (test code = 3.6 mg/dL 2.3-4.7 604) [id number] 07:21:00 Test Item Value Reference Range Interpretation Comments MAGNESIUM (BEAKER) (test code = 1.9 mg/dL 1.6-2.6 627) COMPREHENSIVE METABOLIC [id number] 07:21:00 Test Item Value Reference Range Interpretation [...] code = 413) PHENYTOIN LEVEL, TOTAL AND [id number] 01:14:00 Test Item Value Reference Range Interpretation Comments PHENYTOIN (DILANTIN) (BEAKER) 22.9 ug/mL 10.0-20.0 H (test code = 605) PHENYTOIN FREE (BEAKER) (test 3.51 mcg/ml 1.00-2.00 H code = 847) VALPROIC ACID LEVEL, [id number] 20:49:00 Test Item Value Reference Range Interpretation Comments VALPROIC ACID TOTAL (BEAKER) (test 33 ug/mL 50-100 L code = 924) Therapeutic range for some clinical conditions may be >100 ug/mLPOCT-GLUCOSE [id number] 17:10:00 Test Item Value Reference Range Interpretation Comments POC-GLUCOSE METER 108 mg/dL 70-110 TESTED AT [facility] 6720 (BEAKER) (test code = TISHA Cazares [place] 1532) [address] PHENYTOIN LEVEL, [id number] 12:29:00 Test Item Value Reference Range Interpretation Comments PHENYTOIN (DILANTIN) (BEAKER) 16.3 ug/mL 10.0-20.0 (test code = 605) CREATINE KINASE (CK), TOTAL AND [id number] 12:26:00 Test Item Value Reference Range Interpretation Comments CREATINE KINASE TOTAL (BEAKER) 47 U/L 29-200 (test code = 380) CREATINE KINASE-MB (BEAKER) (test 1.1 ng/mL 0.0-6.6 code = 750) CREATINE KINASE-MB INDEX (BEAKER) 2.3 % (test code = 395) Effective 03/02/2014: CK-MB Reference Range ChangeNew: 0.0-6.6 Previous: 0.0-4.9CK-MB Reference Range:<6.7 Normal6.7-10.0 Borderline>10.0 Abnormal TROPONIN [id number] 12:26:00 Test Item Value Reference Range Interpretation [...] failure, acidosis, acute neurological disease, and persistent tachyarrhythmia.[id number] 12:17:00 Test Item Value Reference Range Interpretation Comments MAGNESIUM (BEAKER) (test code = 2.0 mg/dL 1.6-2.6 627) COMPREHENSIVE METABOLIC [id number] 12:17:00 Test Item Value Reference Range Interpretation [...] PATIEN TS. CBC W/PLT COUNT & AUTO [id number] 11:55:00 Test Item Value Reference Range Interpretation [...] PERCENT (BEAKER) (test code = 2801) URINE [id number] 11:55:00 Test Item Value Reference Range Interpretation Comments CULTURE (BEAKER) (test code = 1095) No growth BLOOD GAS, [id number] 10:28:00 Test Item Value Reference Range Interpretation [...] (test code = 1819) 32.0 % POCT-GLUCOSE [id number] 09:53:00 Test Item Value Reference Range Interpretation Comments POC-GLUCOSE METER 184 mg/dL 70-110 H TESTED AT [facility] 6720 (BEAKER) (test code = [place] 1538) [address] TROPONIN [id number] 22:44:00 Test Item Value Reference Range Interpretation [...] acidosis, acute neurological disease, and persistent tachyarrhythmia.TROPONIN [id number] 15:17:00 Test Item Value Reference Range Interpretation [...] MORPHOLOGY (BEAKER) (test code = Normal 762) [id number] 07:06:00 Test Item Value Reference Range Interpretation Comments PHOSPHORUS (BEAKER) (test code = 2.5 mg/dL 2.3-4.7 604) [id number] 07:06:00 Test Item Value Reference Range Interpretation Comments MAGNESIUM (BEAKER) (test code = 2.0 mg/dL 1.6-2.6 627) COMPREHENSIVE METABOLIC [id number] 07:06:00 Test Item Value Reference Range Interpretation [...] NOT APPLICABLE FOR DIALYSIS PATIEN TS. PROTHROMBIN [id number] 06:40:00 Test Item Value Reference Range Interpretation Comments PROTIME (BEAKER) (test code = 12.5 seconds 11.7-14.7 759) INR (BEAKER) (test code = 370) 1.0 <=5.9 RECOMMENDED COUMADIN/WARFARIN INR THERAPY RANGESSTANDARD DOSE: 2.0 - 3.0 Includes: PROPHYLAXIS for venous thrombosis, systemic embolization; TREATMENT for venous thrombosis and/or pulmonary embolus.HIGH RISK: Target INR is 2.5-3.5 for patients with mechanical heart valves.URINALYSIS W/ [id number] 06:18:00 Test Item Value Reference Range Interpretation [...] 516) SOURCE(BEAKER) (test code = Urine, Voided 7084) COMPREHENSIVE METABOLIC [id number] 05:47:00 Test Item Value Reference Range Interpretation [...] (BEAKER) (test code = 413) COMPREHENSIVE METABOLIC [id number] 10:08:00 Test Item Value Reference Range Interpretation [...] (BEAKER) (test code = 412) PLATELET COUNT (AKER) (test 233 K/CU MM 150-450 code = 756) MEAN PLATELET VOLUME (BEAKER) 10.8 fL 9.4-12.4 (test code = 754) NUCLEATED RED BLOOD CELLS 0 /100 WBC 0-0 (BEAKER) (test code = 413) POCT-GLUCOSE [id number] 12:08:00 Test Item Value Reference Range Interpretation Comments POC-GLUCOSE METER 111 mg/dL 70-110 H TESTED AT [place] [address] ([facility]) (test code = [facility] 1538) [address] POCT-GLUCOSE [id number] 08:40:00 Test Item Value Reference Range Interpretation Comments POC-GLUCOSE METER 184 mg/dL 70-110 H TESTED AT [place] [address] ([facility]) (test code = [facility] 1538) [address] [id number] 05:57:00 Test Item Value Reference Range Interpretation Comments MAGNESIUM (BEAKER) (test code = 2.1 mg/dL 1.6-2.6 627) BASIC METABOLIC [id number] 05:57:00 Test Item Value Reference Range Interpretation [...] 0-0 (BEAKER) (test code = 413) POCT-GLUCOSE [id number] 21:18:00 Test Item Value Reference Range Interpretation Comments POC-GLUCOSE METER 118 mg/dL 70-110 H TESTED AT [facility] 67 ([facility]) (test code = [place] 1538) [address] POCT-GLUCOSE [id number] 17:33:00 Test Item Value Reference Range Interpretation Comments POC-GLUCOSE METER 102 mg/dL 70-110 TESTED AT [facility] 6720 ([facility]) (test code = [place] 1538) [address] POCT-GLUCOSE [id number] 12:06:00 Test Item Value Reference Range Interpretation Comments POC-GLUCOSE METER 188 mg/dL 70-110 H TESTED AT [facility] 6720 (BEAKER) (test code = TISHA Cazares [place] 1538) [address] POCT-GLUCOSE [id number] 08:31:00 Test Item Value Reference Range Interpretation Comments POC-GLUCOSE METER 109 mg/dL 70-110 TESTED AT [facility] 6720 (BEAKER) (test code = [place] 1538) [address] [id number] 06:07:00 Test Item Value Reference Range Interpretation Comments MAGNESIUM (BEAKER) (test code = 2.0 mg/dL 1.6-2.6 627) BASIC METABOLIC [id number] 06:07:00 Test Item Value Reference Range Interpretation [...] S NOT APPLICABLE FOR DIALYSIS PATIEN TS. [id number] 05:40:00 Test Item Value Reference Range Interpretation [...] 0-0 (BEAKER) (test code = 413) POCT-GLUCOSE [id number] 21:01:00 Test Item Value Reference Range Interpretation Comments POC-GLUCOSE METER 118 mg/dL 70-110 H TESTED AT [place] [address] ([facility]) (test code = TISHA Cazares [facility] 1538) [address] POCT-GLUCOSE [id number] 18:51:00 Test Item Value Reference Range Interpretation Comments POC-GLUCOSE METER 117 mg/dL 70-110 H TESTED AT [place] [address] ([facility]) (test code = TISHA Cazares [facility] 1538) [address] POCT-GLUCOSE [id number] 14:02:00 Test Item Value Reference Range Interpretation Comments POC-GLUCOSE METER 129 mg/dL 70-110 H TESTED AT [place] [address] ([facility]) (test code = [place] 1538) [address] [id number] 04:19:00 Test Item Value Reference Range Interpretation Comments MAGNESIUM (BEAKER) (test code = 1.8 mg/dL 1.6-2.6 627) BASIC METABOLIC [id number] 04:19:00 Test Item Value Reference Range Interpretation [...] S NOT APPLICABLE FOR DIALYSIS PATIEN TS. [id number] 04:13:00 Test Item Value Reference Range Interpretation [...] heart valves.Prior to initiating heparinPrior to initiating [id number] 04:13:00 Test Item Value Reference Range Interpretation Comments PARTIAL THROMBOPLASTIN TIME 42.4 seconds 22.5-36.0 H (BEAKER) (test code = 760) LACTIC ACID, ARTERIAL, WHOLE [id number] 04:09:00 Test Item Value Reference Range Interpretation [...] 0-0 (BEAKER) (test code = 413) CALCIUM, [id number] 03:54:00 Test Item Value Reference Range Interpretation Comments CALCIUM IONIZED (BEAKER) (test 1.14 mmol/L 1.12-1.27 code = 698) PH, BLOOD (BEAKER) (test code = 7.49 1810) BLOOD GAS, [id number] 03:54:00 Test Item Value Reference Range Interpretation [...] (test code = 1819) 36.0 % POCT-GLUCOSE [id number] 17:32:00 Test Item Value Reference Range Interpretation Comments POC-GLUCOSE METER 121 mg/dL 70-110 H TESTED AT [place] [address] ([facility]) (test code = T[place] Cazares [place] 1538) [address] PLATELET AGGREGATION: FUNCTION [id number] 14:46:00 Test Item Value Reference Range Interpretation Comments WEAK ADP 82 % 60-91 RESULT([facility]) (test code = 2135) PLATELET FUNCTION 60-100% indicates SCREEN INTERP ([facility]) normal platelet (test code = 2173) function [id number] Mari Phelan MD ([facility]) (test code = (electronic signature) 3554) PLATELET COUNT AGG 221 K/CU MM 150-450 ([facility]) (test code = 2656) POCT-GLUCOSE [id number] 12:58:00 Test Item Value Reference Range Interpretation Comments POC-GLUCOSE METER 129 mg/dL 70-110 H TESTED AT [place] [address] ([facility]) (test code = [facility] [place] 1538) [address] HEMOGLOBIN [id number] 09:09:00 Test Item Value Reference Range Interpretation Comments HEMOGLOBIN A1C (BEAKER) (test code = 5.1 % 4.3-6.1 368) BLOOD GAS, [id number] 06:57:00 Test Item Value Reference Range Interpretation [...] (test code = 1819) 40.0 % POCT-GLUCOSE [id number] 06:01:00 Test Item Value Reference Range Interpretation Comments POC-GLUCOSE METER 154 mg/dL 70-110 H TESTED AT [facility] 6720 (BEAKER) (test code = [place] 1538) [address] [id number] 05:02:00 Test Item Value Reference Range Interpretation Comments MAGNESIUM (BEAKER) (test code = 2.0 mg/dL 1.6-2.6 627) BASIC METABOLIC [id number] 05:02:00 Test Item Value Reference Range Interpretation [...] S NOT APPLICABLE FOR DIALYSIS PATIEN TS. [id number] 04:56:00 Test Item Value Reference Range Interpretation [...] mechanical heart valves.CBC W/PLT COUNT & AUTO [id number] 04:54:00 Test Item Value Reference Range Interpretation [...] code = 2801) LACTIC ACID, ARTERIAL, WHOLE [id number] 04:39:00 Test Item Value Reference Range Interpretation Comments LACTATE BLOOD ARTERIAL (2) 1.2 mmol/L 0.5-2.2 (BEAKER) (test code = 2874) Effective 08/17/2015: Units/Reference Range ChangeNew: 0.5-2.2 mmol/L Previous: 5- 20 mg/dLCALCIUM, [id number] 04:11:00 Test Item Value Reference Range Interpretation Comments CALCIUM IONIZED (BEAKER) (test 1.17 mmol/L 1.12-1.27 code = 698) PH, BLOOD (BEAKER) (test code = 7.44 1810) BLOOD GAS, [id number] 04:11:00 Test Item Value Reference Range Interpretation [...] code = 1819) 40.0 % OXYGEN SATURATION, [id number] 04:09:00 Test Item Value Reference Range Interpretation Comments O2 SATURATION (MEASURED) (BEAKER) 80.7 % (test code = 1455) POCT-GLUCOSE [id number] 02:46:00 Test Item Value Reference Range Interpretation Comments POC-GLUCOSE METER 150 mg/dL 70-110 H TESTED AT [facility] 6720 (BEAKER) (test code = T[place] Caz[place] 1538) [address] POCT-GLUCOSE [id number] 18:29:00 Test Item Value Reference Range Interpretation Comments POC-GLUCOSE METER 111 mg/dL 70-110 H TESTED AT [facility] 6720 (BEAKER) (test code = T[place] 1538) [address] [id number] 16:27:00 Test Item Value Reference Range Interpretation Comments POTASSIUM (BEAKER) (test code = 4.2 meq/L 3.5-5.1 379) [id number] 16:27:00 Test Item Value Reference Range Interpretation Comments MAGNESIUM (BEAKER) (test code = 2.1 mg/dL 1.6-2.6 627) [id number] 16:27:00 Test Item Value Reference Range Interpretation Comments SODIUM (BEAKER) (test code = 381) 141 meq/L 136-145 BASIC METABOLIC [id number] 16:27:00 Test Item Value Reference Range Interpretation [...] DIALYSIS PATIEN TS. LACTIC ACID, ARTERIAL, WHOLE [id number] 16:23:00 Test Item Value Reference Range Interpretation Comments LACTATE BLOOD 1.8 mmol/L 0.5-2.2 Specimen sligh tly ARTERIAL (2) (BEAKER) hemoly zed (test code = 2874) Effective 08/17/2015: Units/Reference Range ChangeNew: 0.5-2.2 mmol/L Previous: 5- 20 mg/dLPT/[id number] 16:18:00 Test Item Value Reference Range Interpretation [...] for patients with mechanical heart valves.HEMOGLOBIN AND [id number] 16:10:00 Test Item Value Reference Range Interpretation [...] (BEAKER) (test code = 413) BLOOD GAS, [id number] 16:03:00 Test Item Value Reference Range Interpretation [...] (test code = 1819) 60.0 % CALCIUM, [id number] 16:03:00 Test Item Value Reference Range Interpretation Comments CALCIUM IONIZED (BEAKER) (test 1.18 mmol/L 1.12-1.27 code = 698) PH, BLOOD (BEAKER) (test code = 7.36 1810) OXYGEN SATURATION, [id number] 16:02:00 Test Item Value Reference Range Interpretation Comments O2 SATURATION (MEASURED) (BEAKER) 82.9 % (test code = 1455) [id number] 15:26:00 Test Item Value Reference Range Interpretation Comments ACTIVATED CLOTTING TIME 120 sec TEST ED AT [facility] 6720 (BEAKER) (test code = [place] 441) [address] [id number] 15:26:00 Test Item Value Reference Range Interpretation Comments ACTIVATED CLOTTING TIME 802 sec TEST ED AT [place] [address] ([facility]) (test code = [place] 441) [address] [id number] 15:26:00 Test Item Value Reference Range Interpretation Comments ACTIVATED CLOTTING TIME 884 sec TEST ED AT [place] [address] ([facility]) (test code = [place] 441) [address] [id number] 15:26:00 Test Item Value Reference Range Interpretation Comments ACTIVATED CLOTTING TIME 621 sec TEST ED AT [place] [address] ([facility]) (test code = [place] 441) [address] THROMBOELASTOGRAPH (TEG)[id number] 14:00:00 Test Item Value Reference Range Interpretation Comments TEG ACTIVATED CLOTTING TIME 8.7 minutes 4.0-7.0 H (AKER) (test code = 1407) TEG FIBRINOGEN ACTIVITY [...] MM 55.0-65.0 H (test code = 1413) [id number] 13:28:00 Test Item Value Reference Range Interpretation Comments FIBRINOGEN LEVEL (BEAKER) (test 458 mg/dl 225-434 H code = 658) [id number] 13:28:00 Test Item Value Reference Range Interpretation Comments PARTIAL THROMBOPLASTIN TIME 39.7 seconds 22.5-36.0 H (BEAKER) (test code = 760) PROTHROMBIN [id number] 13:27:00 Test Item Value Reference Range Interpretation Comments PROTIME (BEAKER) (test code = 17.4 seconds 11.7-14.7 H 759) INR (BEAKER) (test code = 370) 1.4 <=5.9 RECOMMENDED COUMADIN/WARFARIN INR THERAPY RANGESSTANDARD DOSE: 2.0 - 3.0 Includes: PROPHYLAXIS for venous thrombosis, systemic embolization; TREATMENT for venous thrombosis and/or pulmonary embolus.HIGH RISK: Target INR is 2.5-3.5 for patients with mechanical heart valves.PLATELET [id number] 13:21:00 Test Item Value Reference Range Interpretation Comments PLATELET COUNT 151 K/CU MM 150-450 Discordant re sult (BEAKER) (test code compared to previous = 756) result; clinica l correlation req uired. CALCIUM, [id number] 13:06:00 Test Item Value Reference Range Interpretation Comments CALCIUM IONIZED (BEAKER) (test 1.07 mmol/L 1.12-1.27 L code = 698) PH, BLOOD (BEAKER) (test code = 7.31 1810) SODIUM NA-STAT [id number] 13:05:00 Test Item Value Reference Range Interpretation Comments SODIUM (BEAKER) (test code = 381) 135 meq/L 135-148 POTASSIUM-STAT [id number] 13:05:00 Test Item Value Reference Range Interpretation Comments POTASSIUM (BEAKER) (test code = 4.4 meq/L 3.6-5.5 379) BLOOD GAS, [id number] 13:05:00 Test Item Value Reference Range Interpretation [...] (test code = 1819) 67.0 % GLUCOSE-STAT [id number] 13:05:00 Test Item Value Reference Range Interpretation Comments GLUCOSE RANDOM (BEAKER) (test code 145 mg/dL 70-110 H = 652) HGB/HCT (H&H) - STAT [id number] 13:05:00 Test Item Value Reference Range Interpretation Comments HEMOGLOBIN (BEAKER) (test code = 10.2 g/dL 13.0-16.8 L 410) HEMATOCRIT (BEAKER) (test code = 30.0 % 40.0-50.0 L 411) BLOOD GAS, [id number] 12:26:00 Test Item Value Reference Range Interpretation [...] (test code = 1819) 65.0 % GLUCOSE-STAT [id number] 12:26:00 Test Item Value Reference Range Interpretation Comments GLUCOSE RANDOM (BEAKER) (test code 132 mg/dL 70-110 H = 652) HGB/HCT (H&H) - STAT [id number] 12:26:00 Test Item Value Reference Range Interpretation Comments HEMOGLOBIN (BEAKER) (test code = 10.6 g/dL 13.0-16.8 L 410) HEMATOCRIT (BEAKER) (test code = 31.0 % 40.0-50.0 L 411) SODIUM NA-STAT [id number] 12:25:00 Test Item Value Reference Range Interpretation Comments SODIUM (BEAKER) (test code = 381) 136 meq/L 135-148 POTASSIUM-STAT [id number] 12:25:00 Test Item Value Reference Range Interpretation Comments POTASSIUM (BEAKER) (test code = 4.4 meq/L 3.6-5.5 379) BLOOD GAS, [id number] 12:03:00 Test Item Value Reference Range Interpretation [...] (test code = 1819) 65.0 % POTASSIUM-STAT [id number] 12:00:00 Test Item Value Reference Range Interpretation Comments POTASSIUM (BEAKER) (test code = 4.7 meq/L 3.6-5.5 379) BLOOD GAS, [id number] 12:00:00 Test Item Value Reference Range Interpretation [...] (test code = 1819) 65.0 % GLUCOSE-STAT [id number] 12:00:00 Test Item Value Reference Range Interpretation Comments GLUCOSE RANDOM (BEAKER) (test code 140 mg/dL 70-110 H = 652) HGB/HCT (H&H) - STAT [id number] 12:00:00 Test Item Value Reference Range Interpretation Comments HEMOGLOBIN (BEAKER) (test code = 10.4 g/dL 13.0-16.8 L 410) HEMATOCRIT (BEAKER) (test code = 31.0 % 40.0-50.0 L 411) SODIUM NA-STAT [id number] 12:00:00 Test Item Value Reference Range Interpretation Comments SODIUM (BEAKER) (test code = 381) 131 meq/L 135-148 L PLATELET AGGREGATION: FUNCTION [id number] 11:08:00 Test Item Value Reference Range Interpretation Comments WEAK ADP 76 % 60-91 RESULT(BEAKER) (test code = 2135) PLATELET FUNCTION 60-100% indicates SCREEN INTERP (BEAKER) normal platelet (test code = 2173) function [id number] Mari Phelan MD (BEAKER) (test code = (electronic signature) 7438) PLATELET COUNT AGG 222 K/CU MM 150-450 (BEAKER) (test code = 2656) for patients on clopidogrel in past two weeksHEMOGLOBIN [id number] 08:57:00 Test Item Value Reference Range Interpretation Comments HEMOGLOBIN A1C (BEAKER) (test code = 5.0 % 4.3-6.1 368) CBC W/PLT COUNT & AUTO [id number] 05:54:00 Test Item Value Reference Range Interpretation [...] 0-1 PERCENT (BEAKER) (test code = 2801) [id number] 05:37:00 Test Item Value Reference Range Interpretation Comments PARTIAL THROMBOPLASTIN TIME 56.5 seconds 22.5-36.0 H (BEAKER) (test code = 760) BASIC METABOLIC [id number] 05:33:00 Test Item Value Reference Range Interpretation [...] NOT APPLICABLE FOR DIALYSIS PATIEN TS. PROTHROMBIN [id number] 05:33:00 Test Item Value Reference Range Interpretation Comments PROTIME (BEAKER) (test code = 13.3 seconds 11.7-14.7 759) INR (BEAKER) (test code = 370) 1.0 <=5.9 RECOMMENDED COUMADIN/WARFARIN INR THERAPY RANGESSTANDARD DOSE: 2.0 - 3.0 Includes: PROPHYLAXIS for venous thrombosis, systemic embolization; TREATMENT for venous thrombosis and/or pulmonary embolus.HIGH RISK: Target INR is 2.5-3.5 for patients with mechanical heart valves.[id number] 19:22:00 Test Item Value Reference Range Interpretation Comments PARTIAL THROMBOPLASTIN TIME 37.4 seconds 22.5-36.0 H (BEAKER) (test code = 760) PROTHROMBIN [id number] 19:21:00 Test Item Value Reference Range Interpretation Comments PROTIME (BEAKER) (test code = 12.8 seconds 11.7-14.7 759) INR (BEAKER) (test code = 370) 1.0 <=5.9 RECOMMENDED COUMADIN/WARFARIN INR THERAPY RANGESSTANDARD DOSE: 2.0 - 3.0 Includes: PROPHYLAXIS for venous thrombosis, systemic embolization; TREATMENT for venous thrombosis and/or pulmonary embolus.HIGH RISK: Target INR is 2.5-3.5 for patients with mechanical heart valves.[id number] 11:49:00 Test Item Value Reference Range Interpretation Comments PARTIAL THROMBOPLASTIN TIME 34.7 seconds 22.5-36.0 (BEAKER) (test code = 760) Prior to initiating heparinPLATELET [id number] 11:31:00 Test Item Value Reference Range Interpretation Comments PLATELET COUNT (BEAKER) (test 199 K/CU MM 150-450 code = 756) PLATELET AGGREGATION: FUNCTION [id number] 11:12:00 Test Item Value Reference Range Interpretation Comments WEAK ADP 90 % 60-91 RESULT(BEAKER) (test code = 2135) PLATELET FUNCTION 60-100% indicates SCREEN INTERP (BEAKER) normal platelet (test code = 2173) function [id number] Mari Phelan MD ([facility]) (test code = (electronic signature) 3286) PLATELET COUNT AGG 200 K/CU MM 150-450 (ARAMISAKER) (test code = 7326) HEMOGLOBIN [id number] 08:38:00 Test Item Value Reference Range Interpretation Comments HEMOGLOBIN A1C ([facility]) (test code = 5.5 % 4.3-6.1 368) TROPONIN [id number] 08:35:00 Test Item Value Reference Range Interpretation Comments TROPONIN I (LANCE) (test code = 0.40 ng/mL 0.00-0.03 HH [...] Reference Range Interpretation Comments CREATINE KINASE TOTAL (MARLEEN) 39 U/L 29-200 (test code = 380) CREATINE KINASE-MB ([facility]) (test 1.6 ng/mL 0.0-6.6 code = 750) CREATINE KINASE-MB INDEX ([facility]) 4.1 % (test code = 395) Effective 03/02/2014: CK-MB Reference Range ChangeNew: 0.0-6.6 Previous: 0.0-4.9CK-MB Reference Range:<6.7 Normal6.7-10.0 Borderline>10.0 Abnormal POCT-GLUCOSE [id number] 08:23:00 Test Item Value Reference Range Interpretation Comments POC-GLUCOSE METER 104 mg/dL 70-110 TESTED AT [facility] 6720 ([facility]) (test code = [place] 1538) [address] PROTHROMBIN [id number] 04:32:00 Test Item Value Reference Range Interpretation Comments PROTIME (BEAKER) (test code = 13.5 seconds 11.7-14.7 759) INR (BEAKER) (test code = 370) 1.0 <=5.9 RECOMMENDED COUMADIN/WARFARIN INR THERAPY RANGESSTANDARD DOSE: 2.0 - 3.0 Includes: PROPHYLAXIS for venous thrombosis, systemic embolization; TREATMENT for venous thrombosis and/or pulmonary embolus.HIGH RISK: Target INR is 2.5-3.5 for patients with mechanical heart valves.[id number] 02:13:00 Test Item Value Reference Range Interpretation Comments PHOSPHORUS (BEAKER) (test code = 3.9 mg/dL 2.3-4.7 604) [id number] 02:13:00 Test Item Value Reference Range Interpretation Comments MAGNESIUM (BEAKER) (test code = 2.1 mg/dL 1.6-2.6 627) BASIC METABOLIC [id number] 02:13:00 Test Item Value Reference Range Interpretation [...] PATIEN TS. CBC W/PLT COUNT & AUTO [id number] 01:44:00 Test Item Value Reference Range Interpretation [...] 0-1 PERCENT (BEAKER) (test code = 2801) [id number] 01:31:00 Test Item Value Reference Range Interpretation [...] 2.5-3.5 for patients with mechanical heart valves.TROPONIN [id number] 00:46:00 Test Item Value Reference Range Interpretation [...] Reference Range Interpretation Comments CREATINE KINASE TOTAL (ARAMISAKER) 44 U/L 29-200 (test code = 380) CREATINE KINASE-MB (BEAKER) (test 2.1 ng/mL 0.0-6.6 code = 750) CREATINE KINASE-MB INDEX (BEAKER) 4.8 % (test code = 395) Effective 03/02/2014: CK-MB Reference Range ChangeNew: 0.0-6.6 Previous: 0.0-4.9CK-MB Reference Range:<6.7 Normal6.7-10.0 Borderline>10.0 Abnormal [id number] 06:58:00 Test Item Value Reference Range Interpretation Comments PHOSPHORUS (BEAKER) (test code = 3.7 mg/dL 2.3-4.7 604) [id number] 06:58:00 Test Item Value Reference Range Interpretation Comments MAGNESIUM (BEAKER) (test code = 1.9 mg/dL 1.6-2.6 627) BASIC METABOLIC [id number] 06:58:00 Test Item Value Reference Range Interpretation [...] S NOT APPLICABLE FOR DIALYSIS PATIEN TS. [id number] 06:36:00 Test Item Value Reference Range Interpretation Comments PHOSPHORUS (BEAKER) (test code = 4.1 mg/dL 2.3-4.7 604) [id number] 06:36:00 Test Item Value Reference Range Interpretation Comments MAGNESIUM (BEAKER) (test code = 2.0 mg/dL 1.6-2.6 627) BASIC METABOLIC [id number] 06:36:00 Test Item Value Reference Range Interpretation [...] S NOT APPLICABLE FOR DIALYSIS PATIEN TS. [id number] 15:50:00 Test Item Value Reference Range Interpretation Comments RPR SCREEN (BEAKER) (test code = Nonreactive Nonreactive 420) HEMOGLOBIN [id number] 10:29:00 Test Item Value Reference Range Interpretation Comments HEMOGLOBIN A1C (BEAKER) (test code = 5.4 % 4.3-6.1 368) VITAMIN B12 AND [id number] 09:21:00 Test Item Value Reference Range Interpretation Comments VITAMIN B12 (BEAKER) (test code = 335 pg/mL 213-816 774) FOLATE (BEAKER) (test code = 362) 36.6 ng/mL >=7.0 Effective 03/02/2014: Folate Reference Range ChangeNew: >=7.0 Previous: >=5.4CBC W/PLT COUNT & AUTO [id number] 08:15:00 Test Item Value Reference Range Interpretation [...] (test code = 417) 0.00TSH/FREE T4 IF [id number] 08:00:00 Test Item Value Reference Range Interpretation Comments THYROID STIMULATING HORMONE 1.39 uIU/mL 0.35-4.94 (BEAKER) (test code = 772) BASIC METABOLIC [id number] 07:26:00 Test Item Value Reference Range Interpretation [...] = 1092) mL/min/1.73 sq DATA TO CALCU KERRY m ESTIMATED GFR. LIPID [id number] 07:26:00 Test Item Value Reference Range Interpretation [...] (test code = 3.8 mg/dL 2.3-4.7 604) [id number] 07:25:00 Test Item Value Reference Range Interpretation Comments MAGNESIUM (BEAKER) (test code = 2.0 mg/dL 1.6-2.6 627) URINALYSIS W/ [id number] 19:16:00 Test Item Value Reference Range Interpretation [...] 520) SOURCE(BEAKER) (test code = Urine, Voided 1009) BLOOD [id number] 11:00:00 Test Item Value Reference Range Interpretation Comments CULTURE (BEAKER) (test No growth in 5 days code = 1095) BLOOD [id number] 11:00:00 Test Item Value Reference Range Interpretation Comments CULTURE (BEAKER) (test No growth in 5 days code = 1095) BASIC METABOLIC [id number] 05:33:00 Test Item Value Reference Range Interpretation [...] ESTIMATED GFR. CBC W/PLT COUNT & AUTO [id number] 05:04:00 Test Item Value Reference Range Interpretation [...] 0.00-0.20 (test code = 417) 0.00VANCOMYCIN LEVEL, [id number] 21:36:00 Test Item Value Reference Range Interpretation Comments VANCOMYCIN TROUGH (BEAKER) (test 9.5 ug/mL 10.0-20.0 L code = 522) Please draw prior to 4th vancomycin doseVITAMIN B12 AND [id number] 04:33:00 Test Item Value Reference Range Interpretation Comments VITAMIN B12 (BEAKER) (test code = 599 pg/mL 213-816 774) FOLATE (BEAKER) (test code = 362) 7.7 ng/mL >=7.0 Effective 03/02/2014: Folate Reference Range ChangeNew: >=7.0 Previous: >=5.4HEPATIC FUNCTION [id number] 03:58:00 Test Item Value Reference Range Interpretation [...] = 12 U/L 6-55 347) BASIC METABOLIC [id number] 03:58:00 Test Item Value Reference Range Interpretation [...] ESTIMATED GFR. CBC W/PLT COUNT & AUTO [id number] 03:45:00 Test Item Value Reference Range Interpretation [...] K/ L 0.00-0.20 (test code = 417) 0.00XAZJ1830-62-75 03:18:00 Test Item Value Reference Range Interpretation Comments PARTIAL THROMBOPLASTIN TIME 42.6 seconds 22.5-36.0 H (BEAKER) (test code = 760) PROTHROMBIN TIME/[id number] 03:17:00 Test Item Value Reference Range Interpretation Comments PROTIME (BEAKER) (test code = 13.0 seconds 11.7-14.7 759) INR (BEAKER) (test code = 370) 1.0 <=5.9 RECOMMENDED COUMADIN/WARFARIN INR THERAPY RANGESSTANDARD DOSE: 2.0 - 3.0 Includes: PROPHYLAXIS for venous thrombosis, systemic embolization; TREATMENT for venous thrombosis and/or pulmonary embolus.HIGH RISK: Target INR is 2.5-3.5 for patients with mechanical heart valves.BASIC METABOLIC [id number] 02:48:00 Test Item Value Reference Range Interpretation [...] ESTIMATED GFR. CBC W/PLT COUNT & AUTO [id number] 02:47:00 Test Item Value Reference Range Interpretation [...] K/ L 0.00-0.20 (test code = 417) 0.42YZSMWTUIW0811-92-76 09:18:00 Test Item Value Reference Range Interpretation Comments Sodium Lvl (test code = Sodium Lvl) 146 135-145 H [facility] CenterOjwuuvxJSUBABSSS0763-63-34 09:18:00 Test Item Value Reference Range Interpretation Comments Potassium Lvl (test code = Potassium 4.0 3.5-5.1 N Lvl) [facility] CenterFmdiwlkBQNNXOZCN1622-07-89 09:18:00 Test Item Value Reference Range Interpretation Comments BUN (test code = BUN) 11 7-22 N [facility] CenterBautjavQFGEDWXCV2868-07-17 09:18:00 Test Item Value Reference Range Interpretation Comments Glucose Lvl (test code = Glucose Lvl) 107 70-99 H [facility] CenterBeuqqlxNKPZGQKXE1460-97-81 09:18:00 Test Item Value Reference Range Interpretation Comments Creatinine Lvl (test code = Creatinine 0.7 0.5-1.4 N Lvl) [facility]NbqobblXOCGWLFVNE1082-75-62 09:18:00 Test Item Value Reference Range Interpretation Comments RDW (test code = RDW) 13.6 11.5-14.[address] [facility] CenterGkoikwdCVSDYASOJJ2496-12-44 09:18:00 Test Item Value Reference Range Interpretation Comments MCV (test code = MCV) 98.9 80.0-94.[address] [facility] CenterFrzlzfgPJLTJUAYOF6212-40-41 09:18:00 Test Item Value Reference Range Interpretation Comments Hct (test code = Hct) 38.8 42.0-54.[address] [facility] CenterMsgmhihKIINQYLAAA5231-02-05 09:18:00 Test Item Value Reference Range Interpretation Comments MPV (test code = MPV) 9.7 7.4-10.[address] [facility] CenterRscpgcmIPXLBOCBNO4540-60-01 09:18:00 Test Item Value Reference Range Interpretation Comments Platelet (test code = Platelet) 188 133-[address] [facility] CenterRdmbvieSKUSADMEZW0649-55-76 09:18:00 Test Item Value Reference Range Interpretation Comments MCHC (test code = MCHC) 34.5 32.0-36.[address] [facility] CenterJhktbglHLPUSILWAD4703-80-93 09:18:00 Test Item Value Reference Range Interpretation Comments MCH (test code = MCH) 34.2 pg 27.0-31.[address] [facility] CenterMlwotufJKWIQTTUFU4929-16-79 09:18:00 Test Item Value Reference Range Interpretation Comments Hgb (test code = Hgb) 13.4 14.0-18.[address] [facility] CenterPksjcrnMJKHGKKHCW3781-09-04 09:18:00 Test Item Value Reference Range Interpretation Comments WBC (test code = WBC) 5.8 3.7-10.[address] [facility] CenterFmkhdxvBIWTQPZNBZ5931-12-01 09:18:00 Test Item Value Reference Range Interpretation Comments RBC (test code = RBC) 3.92 4.70-6.[address] [facility] CenterOhdhmejYNOUSQTSTU6472-68-49 09:18:00 Test Item Value Reference Range Interpretation Comments Monocytes # (test code 0.8 See_Comment N [Aut omated message] The = Monocytes #) system which generated this result tra nsmitted reference range : <=0.8. The reference r jessika was not used to int erpret this result as normal/abnormal . [facility] CenterOnhktisZIBDRQLICS9175-64-23 09:18:00 Test Item Value Reference Range Interpretation Comments Lymphocytes # (test code = Lymphocytes 2.4 1.0-5.5 N #) [facility] CenterIrtyjcaDRSBYMVPCN3513-67-14 09:18:00 Test Item Value Reference Range Interpretation Comments Basophils # (test code 0.0 See_Comment N [Aut omated message] The = Basophils #) system which generated this result tra nsmitted reference range : <=0.2. The reference r jessika was not used to int erpret this result as normal/abnormal . [facility] CenterBetshtrKKUHSEARMS9631-59-93 09:18:00 Test Item Value Reference Range Interpretation Comments Eosinophils # (test code 0.2 See_Comment N [A utomated message] The = Eosinophils #) system whic h generated this result tra nsmitted reference range : <=0.5. The reference r jessika was not used to int erpret this result as normal/abnormal . [facility] CenterXzpexypPZRWOGLEEE7987-37-51 09:18:00 Test Item Value Reference Range Interpretation Comments Lymphocytes (test code = Lymphocytes) 41.3 20.0-40.[address] [facility] CenterRlncdajCETXZNULLW7807-66-86 09:18:00 Test Item Value Reference Range Interpretation Comments Segs (test code = Segs) 41.0 45.0-75.[address] [facility] CenterZupqfjiCSHAEOXMDA8878-38-25 09:18:00 Test Item Value Reference Range Interpretation Comments Eosinophils (test code = 3.9 See_Comment N [A utomated message] The Eosinophils) system which ge nerated this result tra nsmitted reference range : <=4.0. The reference r jessika was not used to int erpret this result as normal/abnormal . [facility] CenterZptlcdcZMBZZAQUFU8087-55-32 09:18:00 Test Item Value Reference Range Interpretation Comments Segs-Bands # (test code = Segs-Bands #) 2.4 1.5-8.[address] [facility] CenterXgddcwmDZIVQEMISR0975-40-07 09:18:00 Test Item Value Reference Range Interpretation Comments Basophils (test code = 0.3 See_Comment N [Aut omated message] The Basophils) system which ge nerated this result tra nsmitted reference range : <=1.0. The reference r jessika was not used to int erpret this result as normal/abnormal . [facility] CenterKkthdokZCGNKVZZRJ9542-85-77 09:18:00 Test Item Value Reference Range Interpretation Comments Monocytes (test code = Monocytes) 13.5 2.0-12.0 H [facility] CenterQnngummNYBJQGJSZ7763-42-54 09:18:00 Test Item Value Reference Range Interpretation Comments AGAP (test code = AGAP) 14.0 10.0-20.0 N [facility] CenterTpbaguvMJOJYRCSR3594-37-33 09:18:00 Test Item Value Reference Range Interpretation Comments Chloride Lvl (test code = Chloride Lvl) 110 95-109 H [facility] CenterMnowhexNDIHICZNS8814-06-03 09:18:00 Test Item Value Reference Range Interpretation Comments CO2 (test code = CO2) 26 24-32 N [facility] CenterFbtgrfsZUMZTFAWK6320-34-76 09:18:00 Test Item Value Reference Range Interpretation Comments Calcium Lvl (test code = Calcium Lvl) 9.1 8.5-10.5 N [facility] CenterCzhujwyHDLTVAGJP2736-34-65 09:18:00 Test Item Value Reference Range Interpretation Comments Sodium Lvl (test code = Sodium Lvl) 146 135-145 H [facility] CenterAfqprvwRYXAOJEOB4892-93-30 09:18:00 Test Item Value Reference Range Interpretation Comments Potassium Lvl (test code = Potassium 4.0 3.5-5.1 N Lvl) [facility] CenterRybbfgfKHJSVHJIZ7521-00-89 09:18:00 Test Item Value Reference Range Interpretation Comments BUN (test code = BUN) 11 7-22 N [facility] CenterScquakhKCOXMSFHG4115-58-28 09:18:00 Test Item Value Reference Range Interpretation Comments Glucose Lvl (test code = Glucose Lvl) 107 70-99 H [facility] CenterUdocvgsIBYUCOZCI0030-17-35 09:18:00 Test Item Value Reference Range Interpretation Comments Creatinine Lvl (test code = Creatinine 0.7 0.5-1.4 N Lvl) [facility] CenterCtizkylWRADFPNBFQ0940-46-06 09:18:00 Test Item Value Reference Range Interpretation Comments RDW (test code = RDW) 13.6 11.5-14.[address] [facility] CenterMiyzwnkBLTJUHEQRI6605-37-54 09:18:00 Test Item Value Reference Range Interpretation Comments MCV (test code = MCV) 98.9 80.0-94.[address] [facility] CenterCywhoihIPRGQLBBLW5460-83-78 09:18:00 Test Item Value Reference Range Interpretation Comments Hct (test code = Hct) 38.8 42.0-54.[address] [facility] CenterIcnqympKIDHXSKCIV1035-88-68 09:18:00 Test Item Value Reference Range Interpretation Comments MPV (test code = MPV) 9.7 7.4-10.[address] [facility] CenterLltuoieKWZZKPLHLT4745-60-40 09:18:00 Test Item Value Reference Range Interpretation Comments Platelet (test code = Platelet) 188 133-[address] [facility] CenterNmerydsZZUHBFTYWN9539-18-22 09:18:00 Test Item Value Reference Range Interpretation Comments MCHC (test code = MCHC) 34.5 32.0-36.[address] [facility] CenterOtxkgngRXEOJRMMMJ8735-26-86 09:18:00 Test Item Value Reference Range Interpretation Comments MCH (test code = MCH) 34.2 pg 27.0-31.[address] [facility] CenterAtpfuuxFTUXULLKNX6086-60-98 09:18:00 Test Item Value Reference Range Interpretation Comments Hgb (test code = Hgb) 13.4 14.0-18.[address] [facility] CenterDlsmfxkVWSCDYTOUL8540-01-64 09:18:00 Test Item Value Reference Range Interpretation Comments WBC (test code = WBC) 5.8 3.7-10.[address] [facility] CenterTanvkepDAQVNKXVHS0381-60-95 09:18:00 Test Item Value Reference Range Interpretation Comments RBC (test code = RBC) 3.92 4.70-6.[address] [facility] CenterYhmjmroPTUJKTGQZG3041-65-85 09:18:00 Test Item Value Reference Range Interpretation Comments Monocytes # (test code 0.8 See_Comment N [Aut omated message] The = Monocytes #) system which generated this result tra nsmitted reference range : <=0.8. The reference r jessika was not used to int erpret this result as normal/abnormal . [facility] CenterMjfxoojOSZATFWCMY9973-21-39 09:18:00 Test Item Value Reference Range Interpretation Comments Lymphocytes # (test code = Lymphocytes 2.4 1.0-5.5 N #) [facility] CenterQrzslieSTWWMVBGPQ3355-34-43 09:18:00 Test Item Value Reference Range Interpretation Comments Basophils # (test code 0.0 See_Comment N [Aut omated message] The = Basophils #) system which generated this result tra nsmitted reference range : <=0.2. The reference r jessika was not used to int erpret this result as normal/abnormal . [facility] CenterEpkrkkzGHSWNJICUU5348-08-49 09:18:00 Test Item Value Reference Range Interpretation Comments Eosinophils # (test code 0.2 See_Comment N [A utomated message] The = Eosinophils #) system whic h generated this result tra nsmitted reference range : <=0.5. The reference r jessika was not used to int erpret this result as normal/abnormal . [facility] CenterMajsnygYCSDQRHBDB5262-31-69 09:18:00 Test Item Value Reference Range Interpretation Comments Lymphocytes (test code = Lymphocytes) 41.3 20.0-40.[address] [facility] CenterTiuaezqWCLOQPZFOM5869-58-09 09:18:00 Test Item Value Reference Range Interpretation Comments Segs (test code = Segs) 41.0 45.0-75.0 L [facility] CenterVkyiqkoBRZELRREF2326-37-21 09:18:00 Test Item Value Reference Range Interpretation Comments AGAP (test code = AGAP) 14.0 10.0-20.[address] [facility] CenterBsmgcetDPLKJXXEPQ3046-42-12 09:18:00 Test Item Value Reference Range Interpretation Comments Eosinophils (test code = 3.9 See_Comment N [A utomated message] The Eosinophils) system which ge nerated this result tra nsmitted reference range : <=4.0. The reference r jessika was not used to int erpret this result as normal/abnormal . [facility] CenterHejwogbUFMKGBJFTJ8428-39-17 09:18:00 Test Item Value Reference Range Interpretation Comments Segs-Bands # (test code = Segs-Bands #) 2.4 1.5-8.[address] [facility] CenterRpurrcsGLOJLTTBPP0586-48-22 09:18:00 Test Item Value Reference Range Interpretation Comments Basophils (test code = 0.3 See_Comment N [Aut omated message] The Basophils) system which ge nerated this result tra nsmitted reference range : <=1.0. The reference r jessika was not used to int erpret this result as normal/abnormal . [facility] CenterPjtkfqjPBWLBTOSSL1843-20-88 09:18:00 Test Item Value Reference Range Interpretation Comments Monocytes (test code = Monocytes) 13.5 2.0-12.0 H [facility] CenterEfusvmzCRVHMXGHM1682-73-69 09:18:00 Test Item Value Reference Range Interpretation Comments AGAP (test code = AGAP) 14.0 10.0-20.0 N [facility] CenterUyabhelYGANKJRAW0134-00-66 09:18:00 Test Item Value Reference Range Interpretation Comments Chloride Lvl (test code = Chloride Lvl) 110 95-109 H [facility] CenterBtapxfoYRNAYHKKX5035-02-77 09:18:00 Test Item Value Reference Range Interpretation Comments CO2 (test code = CO2) 26 24-32 N [facility] CenterNbnpwnfJIGHZWVAK5821-89-29 09:18:00 Test Item Value Reference Range Interpretation Comments Calcium Lvl (test code = Calcium Lvl) 9.1 8.5-10.5 N [facility] CenterWkckawfPFXHWCGPH6119-62-38 09:18:00 Test Item Value Reference Range Interpretation Comments Sodium Lvl (test code = Sodium Lvl) 146 135-145 H [facility] CenterYsmqtezAFVDDISEY6450-89-12 09:18:00 Test Item Value Reference Range Interpretation Comments Potassium Lvl (test code = Potassium 4.0 3.5-5.1 N Lvl) [facility] CenterWszunwzMMNJMKHVD3467-16-37 09:18:00 Test Item Value Reference Range Interpretation Comments BUN (test code = BUN) 11 7-22 N [facility] CenterOtgrpisRJUFUDSZL8600-49-68 09:18:00 Test Item Value Reference Range Interpretation Comments Glucose Lvl (test code = Glucose Lvl) 107 70-99 H [facility] CenterGlvnbynAFXIQFCLX7366-73-50 09:18:00 Test Item Value Reference Range Interpretation Comments Creatinine Lvl (test code = Creatinine 0.7 0.5-1.4 N Lvl) [facility] CenterQdmjlzbZGCCYAFOTM0491-63-29 09:18:00 Test Item Value Reference Range Interpretation Comments RDW (test code = RDW) 13.6 11.5-14.[address] [facility] CenterUyhtkruYQHXSKXMQD4047-36-61 09:18:00 Test Item Value Reference Range Interpretation Comments MCV (test code = MCV) 98.9 80.0-94.[address] [facility] CenterGlajhbpRGVBQYXXRL2847-99-79 09:18:00 Test Item Value Reference Range Interpretation Comments Hct (test code = Hct) 38.8 42.0-54.[address] [facility] CenterMuqhjyuKAILVLZELC9404-26-11 09:18:00 Test Item Value Reference Range Interpretation Comments MPV (test code = MPV) 9.7 7.4-10.[address] [facility] CenterNqfrwrwCJMRCATXPT8135-84-33 09:18:00 Test Item Value Reference Range Interpretation Comments Platelet (test code = Platelet) 188 133-[address] [facility] CenterTxsrjayCVMVMSQAEQ8482-21-54 09:18:00 Test Item Value Reference Range Interpretation Comments MCHC (test code = MCHC) 34.5 32.0-36.[address] [facility] CenterDfrotiySGRJLUEGYW9000-02-13 09:18:00 Test Item Value Reference Range Interpretation Comments MCH (test code = MCH) 34.2 pg 27.0-31.[address] [facility] CenterOsgulqoBOYICXVAZP4937-09-64 09:18:00 Test Item Value Reference Range Interpretation Comments Hgb (test code = Hgb) 13.4 14.0-18.[address] CenterFullcuvIDVZZNJAIS6459-68-57 09:18:00 Test Item Value Reference Range Interpretation Comments WBC (test code = WBC) 5.8 3.7-10.[address] [facility] CenterRlishgbVLFPOAKEBV7567-28-38 09:18:00 Test Item Value Reference Range Interpretation Comments RBC (test code = RBC) 3.92 4.70-6.[address] [facility] CenterFkahhqlJAASDLRXSW7754-64-75 09:18:00 Test Item Value Reference Range Interpretation Comments Monocytes # (test code 0.8 See_Comment N [Aut omated message] The = Monocytes #) system which generated this result tra nsmitted reference range : <=0.8. The reference r jessika was not used to int erpret this result as normal/abnormal . [facility] CenterOhfnxqfSDRIKJCTRU2859-78-94 09:18:00 Test Item Value Reference Range Interpretation Comments Lymphocytes # (test code = Lymphocytes 2.4 1.0-5.5 N #) [facility] CenterQfmcmgsSSSTESHKAG6189-09-60 09:18:00 Test Item Value Reference Range Interpretation Comments Basophils # (test code 0.0 See_Comment N [Aut omated message] The = Basophils #) system which generated this result tra nsmitted reference range : <=0.2. The reference r jessika was not used to int erpret this result as normal/abnormal . [facility] CenterDldxdypQMIROPSUKA8248-17-61 09:18:00 Test Item Value Reference Range Interpretation Comments Eosinophils # (test code 0.2 See_Comment N [A utomated message] The = Eosinophils #) system whic h generated this result tra nsmitted reference range : <=0.5. The reference r jessika was not used to int erpret this result as normal/abnormal . [facility] CenterXtdttgnHUVUGKCXOG7444-75-04 09:18:00 Test Item Value Reference Range Interpretation Comments Lymphocytes (test code = Lymphocytes) 41.3 20.0-40.[address] [facility] CenterRwjlnssUFZLTPLFVC3620-49-35 09:18:00 Test Item Value Reference Range Interpretation Comments Segs (test code = Segs) 41.0 45.0-75.[address] [facility] CenterFksspfsWNSKPWBJJW4021-09-18 09:18:00 Test Item Value Reference Range Interpretation Comments Eosinophils (test code = 3.9 See_Comment N [A utomated message] The Eosinophils) system which ge nerated this result tra nsmitted reference range : <=4.0. The reference r jessika was not used to int erpret this result as normal/abnormal . [facility] CenterEpcomviRHECFBEGTG3945-98-85 09:18:00 Test Item Value Reference Range Interpretation Comments Segs-Bands # (test code = Segs-Bands #) 2.4 1.5-8.[address] [facility] CenterMtsgmptNRSOJWNOTL1178-23-46 09:18:00 Test Item Value Reference Range Interpretation Comments Basophils (test code = 0.3 See_Comment N [Aut omated message] The Basophils) system which ge nerated this result tra nsmitted reference range : <=1.0. The reference r jessika was not used to int erpret this result as normal/abnormal . [facility]ItbwmlaCWPQVTORDS1951-81-61 09:18:00 Test Item Value Reference Range Interpretation Comments Monocytes (test code = Monocytes) 13.5 2.0-12.0 [facility]mbeyksLFQGXLXJQ1516-79-03 09:18:00 Test Item Value Reference Range Interpretation Comments Chloride Lvl (test code = Chloride Lvl) 110 95-109 [facility]OzpoafoMFLMXYRRT0534-13-07 09:18:00 Test Item Value Reference Range Interpretation Comments CO2 (test code = CO2) 26 24-32 N [facility] CenterFeqjzppPJOZROYVX4786-62-03 09:18:00 Test Item Value Reference Range Interpretation Comments Calcium Lvl (test code = Calcium Lvl) 9.1 8.5-10.5 N [facility] GLUCOSE RDPIXJV7959-42-25 21:40:00 Test Item Value Reference Range Interpretation Comments Comment1 (test code = Comment1) Notify RN/ [facility] GLUCOSE LFTOVQK3772-69-58 21:40:00 Test Item Value Reference Range Interpretation Comments Gluc POC Lifscn (test code = Gluc POC 121 70-99 H [facility]) [facility] GLUCOSE DXUBFGI1083-66-13 21:40:00 Test Item Value Reference Range Interpretation Comments Comment1 (test code = Comment1) Notify RN/ [facility] GLUCOSE FQWQTIB0120-75-58 21:40:00 Test Item Value Reference Range Interpretation Comments Gluc POC Lifscn (test code = Gluc POC 121 70-99 H [facility]) [facility] GLUCOSE RVWFPUI1448-25-73 21:40:00 Test Item Value Reference Range Interpretation Comments Comment1 (test code = Comment1) Notify RN/ [facility] GLUCOSE AAEAOCX1013-27-34 21:40:00 Test Item Value Reference Range Interpretation Comments Gluc POC Lifscn (test code = Gluc POC 121 70-99 H [facility]) [facility] CenterJvajpmmRTGZNMZSA1860-19-00 10:14:00 Test Item Value Reference Range Interpretation Comments Glucose Lvl (test code = Glucose Lvl) 86 70-99 N [facility]IarhvgfBTTDJGTEC5209-11-20 10:14:00 Test Item Value Reference Range Interpretation Comments Potassium Lvl (test code = Potassium 4.4 3.5-5.1 N Lvl) [facility] CenterTmwaxglZEQXIIOQW1862-53-49 10:14:00 Test Item Value Reference Range Interpretation Comments Chloride Lvl (test code = Chloride Lvl) 107 95-109 N [facility] CenterKecvqzlCUMKRHBBA8730-04-66 10:14:00 Test Item Value Reference Range Interpretation Comments BUN (test code = BUN) 13 7-22 N [facility] CenterQugcyotPKNRGQDFV7353-82-15 10:14:00 Test Item Value Reference Range Interpretation Comments Creatinine Lvl (test code = Creatinine 0.7 0.5-1.4 N Lvl) [facility] CenterTavsshjZOQOMVMYO5555-70-59 10:14:00 Test Item Value Reference Range Interpretation Comments Sodium Lvl (test code = Sodium Lvl) 144 135-145 N [facility] CenterHiqylxzDRDWKIOXU2325-06-16 10:14:00 Test Item Value Reference Range Interpretation Comments AGAP (test code = AGAP) 11.4 10.0-20.[address] [facility] CenterHiablddSTEIAJLGNQ9907-21-05 10:14:00 Test Item Value Reference Range Interpretation Comments Basophils (test code = 0.5 See_Comment N [Aut omated message] The Basophils) system which ge nerated this result tra nsmitted reference range : <=1.0. The reference r jessika was not used to int erpret this result as normal/abnormal . [facility] CenterKpsxiidFSCJWYDLFQ9981-66-31 10:14:00 Test Item Value Reference Range Interpretation Comments Eosinophils (test code = 3.1 See_Comment N [A utomated message] The Eosinophils) system which ge nerated this result tra nsmitted reference range : <=4.0. The reference r jessika was not used to int erpret this result as normal/abnormal . [facility] CenterEuzluvkHIGJCDEINY0253-80-59 10:14:00 Test Item Value Reference Range Interpretation Comments Segs-Bands # (test code = Segs-Bands #) 3.1 1.5-8.[address] [facility] CenterNsccrzxWOWVWABCKG8970-42-17 10:14:00 Test Item Value Reference Range Interpretation Comments Lymphocytes # (test code = Lymphocytes 2.3 1.0-5.5 N #) [facility] CenterSztjadyHWNJXRFXXW7593-69-98 10:14:00 Test Item Value Reference Range Interpretation Comments Monocytes # (test code 0.9 See_Comment H [Aut omated message] The = Monocytes #) system which generated this result tra nsmitted reference range : <=0.8. The reference r jessika was not used to int erpret this result as normal/abnormal . [facility] CenterYrgsoyiNIUVJCYXOI6316-69-12 10:14:00 Test Item Value Reference Range Interpretation Comments Segs (test code = Segs) 48.3 45.0-75.[address] [facility] CenterVxvmrkjTJJKDBVUTR8601-07-44 10:14:00 Test Item Value Reference Range Interpretation Comments Lymphocytes (test code = Lymphocytes) 34.9 20.0-40.[address] [facility] CenterUmpqqjwLJVMQEXASI3519-12-69 10:14:00 Test Item Value Reference Range Interpretation Comments Macrocyte (test code = 1+ *ABN*(09/25/2011 A Macrocyte) 05:14:00) [facility] CenterNtzeyteOKGPNVYOKM2411-20-76 10:14:00 Test Item Value Reference Range Interpretation Comments Eosinophils # (test code 0.2 See_Comment N [A utomated message] The = Eosinophils #) system whic h generated this result tra nsmitted reference range : <=0.5. The reference r jessika was not used to int erpret this result as normal/abnormal . [facility] CenterJfgcrkpSUKDWRVRSZ0939-69-78 10:14:00 Test Item Value Reference Range Interpretation Comments Monocytes (test code = Monocytes) 13.2 2.0-12.[address] [facility] CenterQyodyzcJQSTXAUWFF4494-00-11 10:14:00 Test Item Value Reference Range Interpretation Comments Basophils # (test code 0.0 See_Comment N [Aut omated message] The = Basophils #) system which generated this result tra nsmitted reference range : <=0.2. The reference r jessika was not used to int erpret this result as normal/abnormal . [facility] CenterLqddqvkSPGFURORBO0428-73-76 10:14:00 Test Item Value Reference Range Interpretation Comments MPV (test code = MPV) 9.1 7.4-10.[address] [facility] CenterJuehimxGAVOUJOJWR2705-47-13 10:14:00 Test Item Value Reference Range Interpretation Comments Platelet (test code = Platelet) 183 133-[address] [facility] CenterDivacwsBOSVTTCFFP9621-15-87 10:14:00 Test Item Value Reference Range Interpretation Comments RDW (test code = RDW) 14.3 11.5-14.[address] [facility] CenterSkucuswWMOWCLYUIW0494-59-59 10:14:00 Test Item Value Reference Range Interpretation Comments MCHC (test code = MCHC) 34.1 32.0-36.[address] [facility] CenterIbokfzuZBTCJUKWWQ0000-69-82 10:14:00 Test Item Value Reference Range Interpretation Comments Hct (test code = Hct) 42.1 42.0-54.[address] [facility] CenterYrkgttmRXVLWQIYWY1095-83-88 10:14:00 Test Item Value Reference Range Interpretation Comments Hgb (test code = Hgb) 14.4 14.0-18.[address] [facility] CenterRsxrqraESKROUUOGD6220-75-43 10:14:00 Test Item Value Reference Range Interpretation Comments WBC (test code = WBC) 6.4 3.7-10.[address] [facility] CenterJwgpqaqCXFMVRCXHX0749-10-70 10:14:00 Test Item Value Reference Range Interpretation Comments MCV (test code = MCV) 99.3 80.0-94.[address] [facility] CenterNbccwhpOFGSWEHQFT3060-79-78 10:14:00 Test Item Value Reference Range Interpretation Comments RBC (test code = RBC) 4.24 4.70-6.[address] [facility] CenterWtfxpycTVZSPFKAUA4373-51-16 10:14:00 Test Item Value Reference Range Interpretation Comments MCH (test code = MCH) 33.9 pg 27.0-31.0 [facility] CenterMjutrwiMNHKDRTCP0233-59-12 10:14:00 Test Item Value Reference Range Interpretation Comments CO2 (test code = CO2) 30 24-32 N [facility] CenterZoeormrJZXGVKZSQ1860-65-03 10:14:00 Test Item Value Reference Range Interpretation Comments Calcium Lvl (test code = Calcium Lvl) 9.0 8.5-10.5 N [facility] CenterNzvbiqgKUIJXVZFJ1633-33-28 10:14:00 Test Item Value Reference Range Interpretation Comments Glucose Lvl (test code = Glucose Lvl) 86 70-99 N [facility] CenterYxslmzaPSAIRPQOK0925-22-37 10:14:00 Test Item Value Reference Range Interpretation Comments Potassium Lvl (test code = Potassium 4.4 3.5-5.1 N Lvl) [facility] CenterMetkfuuEKDNOSVYO5490-18-88 10:14:00 Test Item Value Reference Range Interpretation Comments CO2 (test code = CO2) 30 24-32 N [facility] CenterYvgfytjMNWLVWELE4461-19-17 10:14:00 Test Item Value Reference Range Interpretation Comments Chloride Lvl (test code = Chloride Lvl) 107 95-109 N [facility] CenterQwbrvcdOJGSIMLCF4371-08-28 10:14:00 Test Item Value Reference Range Interpretation Comments BUN (test code = BUN) 13 7-22 N [facility] CenterNcpnuuhGEIXWFYAY7243-57-44 10:14:00 Test Item Value Reference Range Interpretation Comments Creatinine Lvl (test code = Creatinine 0.7 0.5-1.4 N Lvl) [facility] CenterIctzsksNUYOLLMNA1571-94-23 10:14:00 Test Item Value Reference Range Interpretation Comments Sodium Lvl (test code = Sodium Lvl) 144 135-145 N [facility] CenterCtqvfvcJAOIKIUYE9021-06-55 10:14:00 Test Item Value Reference Range Interpretation Comments AGAP (test code = AGAP) 11.4 10.0-20.[address] [facility] CenterSmzeeqrGVHMHDAEBE2954-21-97 10:14:00 Test Item Value Reference Range Interpretation Comments Basophils (test code = 0.5 See_Comment N [Aut omated message] The Basophils) system which nerated this result tra nsmitted reference range : <=1.0. The reference r jessika was not used to int erpret this result as normal/abnormal . [facility] CenterUoazhmnRSFHBWJWPG5521-58-29 10:14:00 Test Item Value Reference Range Interpretation Comments Eosinophils (test code = 3.1 See_Comment N [A utomated message] The Eosinophils) system which ge nerated this result tra nsmitted reference range : <=4.0. The reference r jessika was not used to int erpret this result as normal/abnormal . [facility] CenterYsqfjblHMRSUSZVCC7792-01-41 10:14:00 Test Item Value Reference Range Interpretation Comments Segs-Bands # (test code = Segs-Bands #) 3.1 1.5-8.[address] [facility] CenterHvgudzdWDBOXSCTMA9188-72-20 10:14:00 Test Item Value Reference Range Interpretation Comments Lymphocytes # (test code = Lymphocytes 2.3 1.0-5.5 N #) [facility] CenterTmewtwqPYRDJVREGT9963-49-93 10:14:00 Test Item Value Reference Range Interpretation Comments Monocytes # (test code 0.9 See_Comment H [Aut omated message] The = Monocytes #) system which generated this result tra nsmitted reference range : <=0.8. The reference r jessika was not used to int erpret this result as normal/abnormal . [facility] CenterZquznpmLXXAKILJK7212-41-60 10:14:00 Test Item Value Reference Range Interpretation Comments Calcium Lvl (test code = Calcium Lvl) 9.0 8.5-10.[address] [facility] CenterCpmredbBRINDYVQCT6770-10-43 10:14:00 Test Item Value Reference Range Interpretation Comments Segs (test code = Segs) 48.3 45.0-75.[address] [facility] CenterCdbxdxxNGSHSGSDKD4354-83-80 10:14:00 Test Item Value Reference Range Interpretation Comments Lymphocytes (test code = Lymphocytes) 34.9 20.0-40.[address] [facility] CenterNehuwfbTGQKCOXEDJ1651-23-64 10:14:00 Test Item Value Reference Range Interpretation Comments Macrocyte (test code = 1+ *ABN*(09/25/2011 A Macrocyte) 05:14:00) [facility] CenterCwnoiiuBJCIMXSJHG5940-41-75 10:14:00 Test Item Value Reference Range Interpretation Comments Eosinophils # (test code 0.2 See_Comment N [A utomated message] The = Eosinophils #) system whic h generated this result tra nsmitted reference range : <=0.5. The reference r jessika was not used to int erpret this result as normal/abnormal . [facility] CenterRmnuvhpRUFMPBMQTN4173-34-52 10:14:00 Test Item Value Reference Range Interpretation Comments Monocytes (test code = Monocytes) 13.2 2.0-12.[address] [facility] CenterUlpbvpnIPPLRJWNYJ1663-02-36 10:14:00 Test Item Value Reference Range Interpretation Comments Basophils # (test code 0.0 See_Comment N [Aut omated message] The = Basophils #) system which generated this result tra nsmitted reference range : <=0.2. The reference r jessika was not used to int erpret this result as normal/abnormal . [facility] CenterBsxhzzjVSECEPVGZS8682-46-72 10:14:00 Test Item Value Reference Range Interpretation Comments MPV (test code = MPV) 9.1 7.4-10.[address] [facility] CenterRhtirnpQHDPSZBLQP2568-02-30 10:14:00 Test Item Value Reference Range Interpretation Comments Platelet (test code = Platelet) 183 133-[address] [facility] CenterKqppqurEVAVINGMIB6151-94-51 10:14:00 Test Item Value Reference Range Interpretation Comments RDW (test code = RDW) 14.3 11.5-14.[address] [facility] CenterGhurglxVLLBIWNWIQ2095-85-35 10:14:00 Test Item Value Reference Range Interpretation Comments MCHC (test code = MCHC) 34.1 32.0-36.0 N [facility] CenterPeggirwSUNXOYFPQ3493-37-68 10:14:00 Test Item Value Reference Range Interpretation Comments Glucose Lvl (test code = Glucose Lvl) 86 70-[address] [facility] CenterEspuaubNMVBVQIATE0164-47-69 10:14:00 Test Item Value Reference Range Interpretation Comments Hct (test code = Hct) 42.1 42.0-54.[address] [facility] CenterJsrxgfvUWPYZRANDO8881-07-27 10:14:00 Test Item Value Reference Range Interpretation Comments Hgb (test code = Hgb) 14.4 14.0-18.[address] [facility] CenterUsplhvnSQSDMRHNDX8356-63-34 10:14:00 Test Item Value Reference Range Interpretation Comments WBC (test code = WBC) 6.4 3.7-10.[address] [facility] CenterYkrpqdiLYGAWZCPQN5631-05-54 10:14:00 Test Item Value Reference Range Interpretation Comments MCV (test code = MCV) 99.3 80.0-94.[address] [facility] CenterKfjecwlUYGGXELNCF3062-98-13 10:14:00 Test Item Value Reference Range Interpretation Comments RBC (test code = RBC) 4.24 4.70-6.[address] [facility] CenterIjyaapeTIDFLZORCC4217-51-10 10:14:00 Test Item Value Reference Range Interpretation Comments MCH (test code = MCH) 33.9 pg 27.0-31.0 H [facility] CenterDjgromtCLIZEZLHF6667-84-69 10:14:00 Test Item Value Reference Range Interpretation Comments Potassium Lvl (test code = Potassium 4.4 3.5-5.1 N Lvl) [facility] CenterDfdmyoiZFRVFRXFW8516-44-52 10:14:00 Test Item Value Reference Range Interpretation Comments Chloride Lvl (test code = Chloride Lvl) 107 95-109 N [facility] CenterDbcwnhuCUCEDOHMB1802-87-77 10:14:00 Test Item Value Reference Range Interpretation Comments BUN (test code = BUN) 13 7-22 N [facility] CenterTqgqvhiXXMRYRBUH1800-76-93 10:14:00 Test Item Value Reference Range Interpretation Comments Creatinine Lvl (test code = Creatinine 0.7 0.5-1.4 N Lvl) [facility] CenterMteegrsANEJGSCAX4565-16-79 10:14:00 Test Item Value Reference Range Interpretation Comments Sodium Lvl (test code = Sodium Lvl) 144 135-145 N [facility] CenterQkkhufyGWLWDFJKA0436-34-35 10:14:00 Test Item Value Reference Range Interpretation Comments AGAP (test code = AGAP) 11.4 10.0-20.[address] [facility] CenterNnpkeruVABEFVEYUF6128-44-90 10:14:00 Test Item Value Reference Range Interpretation Comments Basophils (test code = 0.5 See_Comment N [Aut omated message] The Basophils) system which ge nerated this result tra nsmitted reference range : <=1.0. The reference r jessika was not used to int erpret this result as normal/abnormal . [facility] CenterZkkzykzECUYVFHHUX2511-74-50 10:14:00 Test Item Value Reference Range Interpretation Comments Eosinophils (test code = 3.1 See_Comment N [A utomated message] The Eosinophils) system which ge nerated this result tra nsmitted reference range : <=4.0. The reference r jessika was not used to int erpret this result as normal/abnormal . [facility] CenterAynsbyoQAGSLCQTGZ1439-86-48 10:14:00 Test Item Value Reference Range Interpretation Comments Segs-Bands # (test code = Segs-Bands #) 3.1 1.5-8.[address] [facility] CenterQqllaqoKWAEMNAFPR0482-19-03 10:14:00 Test Item Value Reference Range Interpretation Comments Lymphocytes # (test code = Lymphocytes 2.3 1.0-5.5 N #) [facility] CenterFvfxcouJWVLHSXEOK0785-70-62 10:14:00 Test Item Value Reference Range Interpretation Comments Monocytes # (test code 0.9 See_Comment H [Aut omated message] The = Monocytes #) system which generated this result tra nsmitted reference range : <=0.8. The reference r jessika was not used to int erpret this result as normal/abnormal . [facility] CenterHehrflwMVXPLIBVXR5602-28-57 10:14:00 Test Item Value Reference Range Interpretation Comments Segs (test code = Segs) 48.3 45.0-75.[address] [facility] CenterBrngfwkHAMLEIYCVJ3051-24-14 10:14:00 Test Item Value Reference Range Interpretation Comments Lymphocytes (test code = Lymphocytes) 34.9 20.0-40.[address] [facility] CenterPrxnxgiUVGTOMCOQU2926-27-67 10:14:00 Test Item Value Reference Range Interpretation Comments Macrocyte (test code = 1+ *ABN*(09/25/2011 A Macrocyte) 05:14:00) [facility] CenterXmxxjnlPUFSNUSIIP0594-38-33 10:14:00 Test Item Value Reference Range Interpretation Comments Eosinophils # (test code 0.2 See_Comment N [A utomated message] The = Eosinophils #) system whic h generated this result tra nsmitted reference range : <=0.5. The reference r jessika was not used to int erpret this result as normal/abnormal . [facility] CenterAqwocwqZTWEJQQHVE0366-30-96 10:14:00 Test Item Value Reference Range Interpretation Comments Monocytes (test code = Monocytes) 13.2 2.0-12.[address] [facility] CenterLenobcuIBMZYKNZZS5156-30-25 10:14:00 Test Item Value Reference Range Interpretation Comments Basophils # (test code 0.0 See_Comment N [Aut omated message] The = Basophils #) system which generated this result tra nsmitted reference range : <=0.2. The reference r jessika was not used to int erpret this result as normal/abnormal . [facility] CenterTvjavumJVPWRGPEWE3450-41-29 10:14:00 Test Item Value Reference Range Interpretation Comments MPV (test code = MPV) 9.1 7.4-10.[address] [facility] CenterDqvgeczRZKYLDVGYH5763-48-87 10:14:00 Test Item Value Reference Range Interpretation Comments Platelet (test code = Platelet) 183 133-[address] [facility] CenterOuthoahGFYBZWCGWF3101-37-94 10:14:00 Test Item Value Reference Range Interpretation Comments RDW (test code = RDW) 14.3 11.5-14.[address] [facility] CenterYbknesoDGHJNRUYTK7306-68-61 10:14:00 Test Item Value Reference Range Interpretation Comments MCHC (test code = MCHC) 34.1 32.0-36.[address] [facility] CenterAcynvszHJHBIZESGM8304-06-35 10:14:00 Test Item Value Reference Range Interpretation Comments Hct (test code = Hct) 42.1 42.0-54.[address] [facility] CenterXgfktutXQTQNHYGVA8043-39-25 10:14:00 Test Item Value Reference Range Interpretation Comments Hgb (test code = Hgb) 14.4 14.0-18.[address] [facility] CenterJkuzlykPZRBOAWZVO2416-79-00 10:14:00 Test Item Value Reference Range Interpretation Comments WBC (test code = WBC) 6.4 3.7-10.[address] [facility] CenterWjskcpoMPOHQPCOZF0589-58-57 10:14:00 Test Item Value Reference Range Interpretation Comments MCV (test code = MCV) 99.3 80.0-94.[address] [facility] CenterOdchotmGFALQWFOMM5565-80-30 10:14:00 Test Item Value Reference Range Interpretation Comments RBC (test code = RBC) 4.24 4.70-6.[address] [facility] CenterKxiljohEGMFEJXMXD0932-94-25 10:14:00 Test Item Value Reference Range Interpretation Comments MCH (test code = MCH) 33.9 pg 27.0-31.0 H [facility] CenterRhlbpngQSMFMLCHL7567-45-60 10:14:00 Test Item Value Reference Range Interpretation Comments CO2 (test code = CO2) 30 24-32 N [facility] CenterKzvpozwSOZSUSITA8093-10-75 10:14:00 Test Item Value Reference Range Interpretation Comments Calcium Lvl (test code = Calcium Lvl) 9.0 8.5-10.5 N [facility] CenterTejnzpdSYDIJBBLD1511-94-80 09:04:00 Test Item Value Reference Range Interpretation Comments Calcium Lvl (test code = Calcium Lvl) 9.0 8.5-10.5 N [facility] CenterDmtrgjkAZMQPPXPV4958-78-01 09:04:00 Test Item Value Reference Range Interpretation Comments AGAP (test code = AGAP) 13.1 10.0-20.[address] [facility] CenterMvoaxotHLOWWXTAFG9938-51-16 09:04:00 Test Item Value Reference Range Interpretation Comments Macrocyte (test code = 1+ *ABN*(09/18/2011 A Macrocyte) 04:04:00) [facility] CenterEvvoxsmOFOLZCSLKB2502-85-74 09:04:00 Test Item Value Reference Range Interpretation Comments Monocytes # (test code 0.9 See_Comment H [Aut omated message] The = Monocytes #) system which generated this result tra nsmitted reference range : <=0.8. The reference r jessika was not used to int erpret this result as normal/abnormal . [facility] CenterMwsiebjRJNLYHAITH3099-48-14 09:04:00 Test Item Value Reference Range Interpretation Comments Lymphocytes # (test code = Lymphocytes 2.1 1.0-5.5 N #) [facility] CenterWyqavmtBWLCDMUMBR8954-52-67 09:04:00 Test Item Value Reference Range Interpretation Comments Segs (test code = Segs) 54.6 45.0-75.[address] [facility] CenterYqsljatSOCIOBNJTH3933-41-25 09:04:00 Test Item Value Reference Range Interpretation Comments Eosinophils # (test code 0.2 See_Comment N [A utomated message] The = Eosinophils #) system whic h generated this result tra nsmitted reference range : <=0.5. The reference r jessika was not used to int erpret this result as normal/abnormal . [facility] CenterHwfijhjSRASRVMOKS7673-30-17 09:04:00 Test Item Value Reference Range Interpretation Comments Eosinophils (test code = 2.3 See_Comment N [A utomated message] The Eosinophils) system which ge nerated this result tra nsmitted reference range : <=4.0. The reference r jessika was not used to int erpret this result as normal/abnormal . [facility] CenterWfbgbixZKTLPPLMLK7929-58-80 09:04:00 Test Item Value Reference Range Interpretation Comments Monocytes (test code = Monocytes) 12.9 2.0-12.[address] [facility] CenterXevoiwcNEYXPTWVAQ5733-15-63 09:04:00 Test Item Value Reference Range Interpretation Comments Lymphocytes (test code = Lymphocytes) 29.9 20.0-40.[address] [facility] CenterWoblvrjRCQYOQQYTR5701-01-69 09:04:00 Test Item Value Reference Range Interpretation Comments Basophils (test code = 0.3 See_Comment N [Aut omated message] The Basophils) system which ge nerated this result tra nsmitted reference range : <=1.0. The reference r jessika was not used to int erpret this result as normal/abnormal . [facility] CenterPwjnpxmLECIRCTYAM4047-78-66 09:04:00 Test Item Value Reference Range Interpretation Comments Basophils # (test code 0.0 See_Comment N [Aut omated message] The = Basophils #) system which generated this result tra nsmitted reference range : <=0.2. The reference r jessika was not used to int erpret this result as normal/abnormal . [facility] CenterIyelgovWILVEWVUGW9596-04-07 09:04:00 Test Item Value Reference Range Interpretation Comments Segs-Bands # (test code = Segs-Bands #) 3.8 1.5-8.[address] [facility] CenterDkdfyqrIATMEZFQIS1792-84-85 09:04:00 Test Item Value Reference Range Interpretation Comments Hct (test code = Hct) 43.5 42.0-54.[address] [facility] CenterLapnztyCTYFKVBDYQ5988-68-02 09:04:00 Test Item Value Reference Range Interpretation Comments MCV (test code = MCV) 99.4 80.0-94.[address] [facility] CenterRghznueZJKEDFCPGJ7703-06-01 09:04:00 Test Item Value Reference Range Interpretation Comments Hgb (test code = Hgb) 14.8 14.0-18.[address] [facility] CenterTwevwpjXGNKVUFNEY5377-38-79 09:04:00 Test Item Value Reference Range Interpretation Comments RBC (test code = RBC) 4.37 4.70-6.[address] [facility] CenterQgxlozkRNHLVZMGVZ3474-54-18 09:04:00 Test Item Value Reference Range Interpretation Comments WBC (test code = WBC) 6.9 3.7-10.[address] [facility] CenterFzduilbESPVKIUKAB3201-86-25 09:04:00 Test Item Value Reference Range Interpretation Comments Platelet (test code = Platelet) 178 133-[address] [facility] CenterPidbyqmQDZDHGABKK5497-19-56 09:04:00 Test Item Value Reference Range Interpretation Comments MCHC (test code = MCHC) 34.2 32.0-36.[address] [facility] CenterCcnxxczMLWYAGCFJZ4791-02-18 09:04:00 Test Item Value Reference Range Interpretation Comments MPV (test code = MPV) 9.1 7.4-10.[address] [facility] CenterUvtletyUQOJMNRSTS8841-18-13 09:04:00 Test Item Value Reference Range Interpretation Comments RDW (test code = RDW) 13.9 11.5-14.[address] [facility] CenterUxeitspTJRNWGAXXU2412-04-08 09:04:00 Test Item Value Reference Range Interpretation Comments MCH (test code = MCH) 33.9 pg 27.0-31.0 H [facility] CenterEpveaxxYKPOHOYFE5523-22-96 09:04:00 Test Item Value Reference Range Interpretation Comments Glucose Lvl (test code = Glucose Lvl) 95 70-99 N [facility] CenterNrpsjqjLUYZNZWKS6594-12-42 09:04:00 Test Item Value Reference Range Interpretation Comments BUN (test code = BUN) 9 7-22 N [facility] CenterVgcohroVGPUDLEWG8954-78-96 09:04:00 Test Item Value Reference Range Interpretation Comments Creatinine Lvl (test code = Creatinine 0.6 0.5-1.4 N Lvl) [facility] CenterTodsxsxBPEEOAAIB7819-27-55 09:04:00 Test Item Value Reference Range Interpretation Comments Sodium Lvl (test code = Sodium Lvl) 141 135-145 N [facility] CenterJydkiluULQUVIGCF2784-78-65 09:04:00 Test Item Value Reference Range Interpretation Comments Potassium Lvl (test code = Potassium 4.1 3.5-5.1 N Lvl) [facility] CenterWwdzweaGLPRNBFDB3957-24-28 09:04:00 Test Item Value Reference Range Interpretation Comments Chloride Lvl (test code = Chloride Lvl) 107 95-109 N [facility] CenterQyjszrqOQATQMAYU9601-89-61 09:04:00 Test Item Value Reference Range Interpretation Comments CO2 (test code = CO2) 25 24-32 N [facility] CenterTqxbigzPIPRNYWVX7419-57-75 09:04:00 Test Item Value Reference Range Interpretation Comments Calcium Lvl (test code = Calcium Lvl) 9.0 8.5-10.5 N [facility] CenterScwoncnMJEEZPQMB4626-82-95 09:04:00 Test Item Value Reference Range Interpretation Comments AGAP (test code = AGAP) 13.1 10.0-20.[address] [facility] CenterEonbrqbEIVTSBGBBE9902-39-70 09:04:00 Test Item Value Reference Range Interpretation Comments Macrocyte (test code = 1+ *ABN*(09/18/2011 A Macrocyte) 04:04:00) [facility] CenterNkhbjftOXSQBVELKK1451-95-48 09:04:00 Test Item Value Reference Range Interpretation Comments Monocytes # (test code 0.9 See_Comment H [Aut omated message] The = Monocytes #) system which generated this result tra nsmitted reference range : <=0.8. The reference r jessika was not used to int erpret this result as normal/abnormal . [facility] CenterJdbczvsSFJVVQBDMP9570-74-44 09:04:00 Test Item Value Reference Range Interpretation Comments Lymphocytes # (test code = Lymphocytes 2.1 1.0-5.5 N #) [facility] CenterKlebyehAVIDEPFATJ8780-97-06 09:04:00 Test Item Value Reference Range Interpretation Comments Segs (test code = Segs) 54.6 45.0-75.[address] [facility] CenterXrhhtkjLQCTSXSKFM8870-21-05 09:04:00 Test Item Value Reference Range Interpretation Comments Eosinophils # (test code 0.2 See_Comment N [A utomated message] The = Eosinophils #) system whic h generated this result tra nsmitted reference range : <=0.5. The reference r jessika was not used to int erpret this result as normal/abnormal . [facility] CenterXfssudwNIHGPKRRYZ4376-87-14 09:04:00 Test Item Value Reference Range Interpretation Comments Eosinophils (test code = 2.3 See_Comment N [A utomated message] The Eosinophils) system which ge nerated this result tra nsmitted reference range : <=4.0. The reference r jessika was not used to int erpret this result as normal/abnormal . [facility] CenterFdqjuyhUYKFRRAQSB7983-91-16 09:04:00 Test Item Value Reference Range Interpretation Comments Monocytes (test code = Monocytes) 12.9 2.0-12.[address] [facility] CenterVxneggmITWIILWWWL8040-10-04 09:04:00 Test Item Value Reference Range Interpretation Comments Lymphocytes (test code = Lymphocytes) 29.9 20.0-40.[address] [facility] CenterNmzdkmfBSFNQGKFWM2903-24-60 09:04:00 Test Item Value Reference Range Interpretation Comments Basophils (test code = 0.3 See_Comment N [Aut omated message] The Basophils) system which ge nerated this result tra nsmitted reference range : <=1.0. The reference r jessika was not used to int erpret this result as normal/abnormal . [facility] CenterXejrrnfXZIOMCAAHF2264-08-34 09:04:00 Test Item Value Reference Range Interpretation Comments Basophils # (test code 0.0 See_Comment N [Aut omated message] The = Basophils #) system which generated this result tra nsmitted reference range : <=0.2. The reference r jessika was not used to int erpret this result as normal/abnormal . [facility] CenterTygelccEKPOWBXCUX3412-68-46 09:04:00 Test Item Value Reference Range Interpretation Comments Segs-Bands # (test code = Segs-Bands #) 3.8 1.5-8.[address] [facility] CenterWnetvsuFPVUPGVSBS4861-92-74 09:04:00 Test Item Value Reference Range Interpretation Comments Hct (test code = Hct) 43.5 42.0-54.[address] [facility] CenterReqnitfOQILHMUQFF0370-66-77 09:04:00 Test Item Value Reference Range Interpretation Comments MCV (test code = MCV) 99.4 80.0-94.[address] [facility] CenterYuopaglMICUCLPPRN0497-04-09 09:04:00 Test Item Value Reference Range Interpretation Comments Hgb (test code = Hgb) 14.8 14.0-18.[address] [facility] CenterOujbgauIQYDUIGRZB2374-86-97 09:04:00 Test Item Value Reference Range Interpretation Comments RBC (test code = RBC) 4.37 4.70-6.[address] [facility] CenterHawwplaAXDEDQYRXC3572-35-69 09:04:00 Test Item Value Reference Range Interpretation Comments WBC (test code = WBC) 6.9 3.7-10.[address] [facility] CenterHncdqooPZHMRRXTWL2694-70-87 09:04:00 Test Item Value Reference Range Interpretation Comments Platelet (test code = Platelet) 178 133-[address] [facility] CenterMoxknooKXWJTPNYHT1764-78-81 09:04:00 Test Item Value Reference Range Interpretation Comments MCHC (test code = MCHC) 34.2 32.0-36.[address] [facility] CenterWokqfasMKKOGNAKKU9346-50-13 09:04:00 Test Item Value Reference Range Interpretation Comments MPV (test code = MPV) 9.1 7.4-10.[address] [facility] CenterAhgyljxCHOCGJKMVK5647-70-23 09:04:00 Test Item Value Reference Range Interpretation Comments RDW (test code = RDW) 13.9 11.5-14.[address] [facility] CenterFvjvlsqDTTAYCFYBH3663-19-15 09:04:00 Test Item Value Reference Range Interpretation Comments MCH (test code = MCH) 33.9 pg 27.0-31.0 H [facility] CenterAufwbpxKGOZXXVKA7504-82-09 09:04:00 Test Item Value Reference Range Interpretation Comments Glucose Lvl (test code = Glucose Lvl) 95 70-99 N [facility] [facility]QvpumsvTFRADWRWD8029-37-73 09:04:00 Test Item Value Reference Range Interpretation Comments BUN (test code = BUN) 9 7-22 N [facility] CenterBorgmshBJNLAIXUH5151-79-21 09:04:00 Test Item Value Reference Range Interpretation Comments Creatinine Lvl (test code = Creatinine 0.6 0.5-1.4 N Lvl) [facility] CenterRpyrkkxCBJFYVFHY7096-52-83 09:04:00 Test Item Value Reference Range Interpretation Comments Sodium Lvl (test code = Sodium Lvl) 141 135-145 N [facility] CenterAfjulvfHCAKXOWKK3274-55-28 09:04:00 Test Item Value Reference Range Interpretation Comments Potassium Lvl (test code = Potassium 4.1 3.5-5.1 N Lvl) [facility] CenterXlxdavnLONLLLAVQ8304-43-55 09:04:00 Test Item Value Reference Range Interpretation Comments Chloride Lvl (test code = Chloride Lvl) 107 95-109 N [facility] CenterOaydrwxTDBRFPQIZ9231-08-81 09:04:00 Test Item Value Reference Range Interpretation Comments CO2 (test code = CO2) 25 24-32 N [facility] CenterLemosynUZWOPIKHU1040-82-90 09:04:00 Test Item Value Reference Range Interpretation Comments CO2 (test code = CO2) 25 24-32 N [facility] CenterYjgrrpoLKVHXIAIM1649-72-31 09:04:00 Test Item Value Reference Range Interpretation Comments Calcium Lvl (test code = Calcium Lvl) 9.0 8.5-10.5 N [facility] CenterLrawkauPIOPKDJWA6127-74-07 09:04:00 Test Item Value Reference Range Interpretation Comments AGAP (test code = AGAP) 13.1 10.0-20.[address] [facility]EheryptGHQDJNTDFA0278-58-78 09:04:00 Test Item Value Reference Range Interpretation Comments Macrocyte (test code = 1+ *ABN*(09/18/2011 A Macrocyte) 04:04:00) [facility] CenterDsoangxDITWJXLOKL7992-83-27 09:04:00 Test Item Value Reference Range Interpretation Comments Monocytes # (test code 0.9 See_Comment H [Aut omated message] The = Monocytes #) system which generated this result tra nsmitted reference range : <=0.8. The reference r jessika was not used to int erpret this result as normal/abnormal . [facility] CenterEdbixbbVKSXWYWXIG9818-14-98 09:04:00 Test Item Value Reference Range Interpretation Comments Lymphocytes # (test code = Lymphocytes 2.1 1.0-5.5 N #) [facility] CenterVvhfrpdSYUQPDAEMK3714-81-64 09:04:00 Test Item Value Reference Range Interpretation Comments Segs (test code = Segs) 54.6 45.0-75.[address] [facility] CenterKevvedpGWOPYIPIFC7949-34-07 09:04:00 Test Item Value Reference Range Interpretation Comments Eosinophils # (test code 0.2 See_Comment N [A utomated message] The = Eosinophils #) system wh h generated this result tra nsmitted reference range : <=0.5. The reference r jessika was not used to int erpret this result as normal/abnormal . [facility] CenterHfzpqjwTPPAWFXYUW9063-19-68 09:04:00 Test Item Value Reference Range Interpretation Comments Eosinophils (test code = 2.3 See_Comment N [A utomated message] The Eosinophils) system which ge nerated this result tra nsmitted reference range : <=4.0. The reference r jessika was not used to int erpret this result as normal/abnormal . [facility] CenterTwcgxzvHYLHXNROPX1042-87-40 09:04:00 Test Item Value Reference Range Interpretation Comments Monocytes (test code = Monocytes) 12.9 2.0-12.[address] [facility] CenterJdinxpuHPPGMDHUUL5768-91-06 09:04:00 Test Item Value Reference Range Interpretation Comments Lymphocytes (test code = Lymphocytes) 29.9 20.0-40.[address] [facility] CenterEetxknnFLMEYPAFIW7479-62-27 09:04:00 Test Item Value Reference Range Interpretation Comments Basophils (test code = 0.3 See_Comment N [Aut omated message] The Basophils) system which ge nerated this result tra nsmitted reference range : <=1.0. The reference r jessika was not used to int erpret this result as normal/abnormal . [facility] CenterYpbiisqBFISTKNUNO6451-25-14 09:04:00 Test Item Value Reference Range Interpretation Comments Basophils # (test code 0.0 See_Comment N [Aut omated message] The = Basophils #) system which generated this result tra nsmitted reference range : <=0.2. The reference r jessika was not used to int erpret this result as normal/abnormal . [facility] CenterPozijevTGDCMKDATV3174-66-24 09:04:00 Test Item Value Reference Range Interpretation Comments Segs-Bands # (test code = Segs-Bands #) 3.8 1.5-8.[address] [facility] CenterMgvnohePTYVAVRVXN5887-83-32 09:04:00 Test Item Value Reference Range Interpretation Comments Hct (test code = Hct) 43.5 42.0-54.[address] [facility] CenterOsgqolbGBZRNTYIZF5076-43-81 09:04:00 Test Item Value Reference Range Interpretation Comments MCV (test code = MCV) 99.4 80.0-94.[address] [facility] CenterEmhgcyrAHUSDTLCFG8360-70-63 09:04:00 Test Item Value Reference Range Interpretation Comments Hgb (test code = Hgb) 14.8 14.0-18.[address] [facility] CenterPcyuhpjNIQSNIUNHG3977-49-22 09:04:00 Test Item Value Reference Range Interpretation Comments RBC (test code = RBC) 4.37 4.70-6.[address] [facility] CenterTtebxwiZBIAHPFTVJ5200-66-16 09:04:00 Test Item Value Reference Range Interpretation Comments WBC (test code = WBC) 6.9 3.7-10.[address] [facility] CenterIfpqxrzKETCUNQULT4758-82-23 09:04:00 Test Item Value Reference Range Interpretation Comments Platelet (test code = Platelet) 178 133-[address] [facility] CenterFapxcnoOAACZVBRRH5752-49-47 09:04:00 Test Item Value Reference Range Interpretation Comments MCHC (test code = MCHC) 34.2 32.0-36.[address] [facility] CenterEjflsvwKJSAZPSSRS3365-99-72 09:04:00 Test Item Value Reference Range Interpretation Comments MPV (test code = MPV) 9.1 7.4-10.[address] [facility] CenterUdsladrNQWYSSOPFM0413-39-29 09:04:00 Test Item Value Reference Range Interpretation Comments RDW (test code = RDW) 13.9 11.5-14.[address] [facility] CenterRqdekmuYXMDEUFRCK2633-86-35 09:04:00 Test Item Value Reference Range Interpretation Comments MCH (test code = MCH) 33.9 pg 27.0-31.0 H [facility] CenterMvgoprwHZRDNZFYU0510-28-18 09:04:00 Test Item Value Reference Range Interpretation Comments Glucose Lvl (test code = Glucose Lvl) 95 70-99 N [facility] CenterLgnqeupICIATPMEY9970-38-64 09:04:00 Test Item Value Reference Range Interpretation Comments BUN (test code = BUN) 9 7-22 N [facility] CenterAhghlslQNWROYNLK8285-50-03 09:04:00 Test Item Value Reference Range Interpretation Comments Creatinine Lvl (test code = Creatinine 0.6 0.5-1.4 N Lvl) [facility] CenterRkkzhlmKFWUNHDEN9148-56-61 09:04:00 Test Item Value Reference Range Interpretation Comments Sodium Lvl (test code = Sodium Lvl) 141 135-145 N [facility] CenterZdiereuMTHHRMXOG3063-29-84 09:04:00 Test Item Value Reference Range Interpretation Comments Potassium Lvl (test code = Potassium 4.1 3.5-5.1 N Lvl) [facility] CenterOlbwbxkWILZRCPTD2612-84-24 09:04:00 Test Item Value Reference Range Interpretation Comments Chloride Lvl (test code = Chloride Lvl) 107 95-109 N [facility]JpkljwsIobgwarcfkbo0104-61-15 14:00:00 Test Item Value Reference Range Interpretation Comments Culture: Urine (test code = Culture: Urine) [facility] UptownBaasopiGdywegmuyono1332-52-38 14:00:00 Test Item Value Reference Range Interpretation Comments Culture: Urine (test code = Culture: Urine) [facility] UptownQbexkavYdfdbollqeuu3011-01-33 14:00:00 Test Item Value Reference Range Interpretation Comments Culture: Urine (test code = Culture: Urine) [facility] AreaErvfqgtNUKSFCEOLJ8624-46-64 13:25:00 Test Item Value Reference Range Interpretation Comments UA Urobilinogen (test code *NA*(09/16/2011 0.1-1.0 = UA Urobilinogen) 08:25:00) [facility] AreaBelrbhjVEWSLKFPCS1899-09-81 13:25:00 Test Item Value Reference Range Interpretation Comments UA WBC (test code = no gt See_Comment N [Automa lorie message] The UA WBC) system which ge nerated this result transmit lorie reference range : <=5. The reference range was not used to interpr et this result as asher l/abnormal. [facility] AreaSvznaqaUIUUHBJSCI8809-35-98 13:25:00 Test Item Value Reference Range Interpretation Comments UA RBC (test code = 1 See_Comment N [Automa lorie message] The UA RBC) system which ge nerated this result transmit lorie reference range : <=2. The reference range was not used to interpr et this result as asher l/abnormal. [facility] AreaWksnxqeKAFAHCWWBM7435-98-90 13:25:00 Test Item Value Reference Range Interpretation Comments UA Mucus (test code = Few /LPF UA Mucus) *NA*(09/16/2011 08:25:00) [facility] AreaTeukmdbHRCGXZWNKP9411-68-59 13:25:00 Test Item Value Reference Range Interpretation Comments UA Ketones (test code Negative mg/dL = UA Ketones) *NA*(09/16/2011 08:25:00) [facility] AreaLczpyqjGJQLELQBEJ2911-03-71 13:25:00 Test Item Value Reference Range Interpretation Comments UA Bili (test code = Negative *NA*(09/16/2011 UA Bili) 08:25:00) [facility] AreaSqfatxiCEQVMCXZHY4419-60-98 13:25:00 Test Item Value Reference Range Interpretation Comments UA Blood (test code = Negative (09/16/2011 N UA Blood) 08:25:00) [facility] AreaGhgemiyGLKREHBIVA6075-91-60 13:25:00 Test Item Value Reference Range Interpretation Comments UA Nitrite (test code Negative (09/16/2011 N = UA Nitrite) 08:25:00) [facility] AreaOujrzeaEMJIZOJTAN8149-44-07 13:25:00 Test Item Value Reference Range Interpretation Comments UA Leuk Est (test Negative (09/16/2011 N code = UA Leuk Est) 08:25:00) [facility] AreaNuzxbiwWZSUMSVVLE9401-15-58 13:25:00 Test Item Value Reference Range Interpretation Comments UA Sq Epi (test code Occasional /LPF = UA Sq Epi) *NA*(09/16/2011 08:25:00) [facility] AreaWpdznuwDLRBGJZHHS9845-68-64 13:25:00 Test Item Value Reference Range Interpretation Comments UA Glucose (test code Negative mg/dL = UA Glucose) *NA*(09/16/2011 08:25:00) [facility] AreaEvabfkgLGSLWESVUG1913-55-38 13:25:00 Test Item Value Reference Range Interpretation Comments UA Protein (test code Negative mg/dL N = UA Protein) (09/16/2011 08:25:00) [facility] AreaTkpkvopNTBNIZWULP4878-10-97 13:25:00 Test Item Value Reference Range Interpretation Comments UA Color (test code = Yellow *NA*(09/16/2011 UA Color) 08:25:00) [facility]MzrcwdxNVMPZVGHTW6936-96-84 13:25:00 Test Item Value Reference Range Interpretation Comments UA pH (test code = UA pH) 5.5 5.0-8.0 N [facility] HospitalTyldgeyJIJVUWGZHP0511-23-60 13:25:00 Test Item Value Reference Range Interpretation Comments UA Spec Grav (test code = UA Spec Grav) 1.017 N [facility] HospitalDpkrtizXNROQQNSDG7503-90-84 13:25:00 Test Item Value Reference Range Interpretation Comments UA Turbidity (test code = Clear (09/16/2011 N UA Turbidity) 08:25:00) [facility] AreaYekgulhOGBOGNAXDO1598-13-70 13:25:00 Test Item Value Reference Range Interpretation Comments UA Urobilinogen (test code *NA*(09/16/2011 0.1-1.0 = UA Urobilinogen) 08:25:00) [facility] AreaYjpvpqcMUJETLCBLU6629-24-90 13:25:00 Test Item Value Reference Range Interpretation Comments UA WBC (test code = no gt See_Comment N [Automa lorie message] The UA WBC) system which ge nerated this result transmit lorie reference range : <=5. The reference range was not used to interpr et this result as asher l/abnormal. [facility] AreaTklmzroSSTDCHAYWU8507-88-86 13:25:00 Test Item Value Reference Range Interpretation Comments UA RBC (test code = 1 See_Comment N [Automa lorie message] The UA RBC) system which ge nerated this result transmit lorie reference range : <=2. The reference range was not used to interpr et this result as asher l/abnormal. [facility] AreaLaavagoCFANWKAIYU8943-65-60 13:25:00 Test Item Value Reference Range Interpretation Comments UA Mucus (test code = Few /LPF UA Mucus) *NA*(09/16/2011 08:25:00) [facility] AreaWkthqxnDKYNHCCPCU8704-25-75 13:25:00 Test Item Value Reference Range Interpretation Comments UA Ketones (test code Negative mg/dL = UA Ketones) *NA*(09/16/2011 08:25:00) [facility] AreaAszjcgnRUZQWUGVLT5863-36-54 13:25:00 Test Item Value Reference Range Interpretation Comments UA Bili (test code = Negative *NA*(09/16/2011 UA Bili) 08:25:00) [facility] AreaLpkeqpeTUGPBJOATL9046-41-90 13:25:00 Test Item Value Reference Range Interpretation Comments UA Blood (test code = Negative (09/16/2011 N UA Blood) 08:25:00) [facility] AreaYkqgexgIUKKBSINVL0824-90-13 13:25:00 Test Item Value Reference Range Interpretation Comments UA Nitrite (test code Negative (09/16/2011 N = UA Nitrite) 08:25:00) [facility] AreaWbqtlpzSJVRHNKBXX3731-82-78 13:25:00 Test Item Value Reference Range Interpretation Comments UA Leuk Est (test Negative (09/16/2011 N code = UA Leuk Est) 08:25:00) [facility] AreaDpusantBCQZCLTFBN2562-70-43 13:25:00 Test Item Value Reference Range Interpretation Comments UA Sq Epi (test code Occasional /LPF = UA Sq Epi) *NA*(09/16/2011 08:25:00) [facility] AreaRetrmjmVGNPNCQUJW7178-21-24 13:25:00 Test Item Value Reference Range Interpretation Comments UA Glucose (test code Negative mg/dL = UA Glucose) *NA*(09/16/2011 08:25:00) [facility] AreaEwidvylOOWVBHAXYX7953-23-85 13:25:00 Test Item Value Reference Range Interpretation Comments UA Protein (test code Negative mg/dL N = UA Protein) (09/16/2011 08:25:00) [facility] AreaPmaotmzNHXKVQQMLL5953-49-78 13:25:00 Test Item Value Reference Range Interpretation Comments UA Color (test code = Yellow *NA*(09/16/2011 UA Color) 08:25:00) [facility] AreaTmsgrzxCTTSCFSTFX3907-18-75 13:25:00 Test Item Value Reference Range Interpretation Comments UA pH (test code = UA pH) 5.5 5.0-8.0 N [facility] AreaQcjymsdZDRIVDLOZJ4801-14-63 13:25:00 Test Item Value Reference Range Interpretation Comments UA Spec Grav (test code = UA Spec Grav) 1.017 N [facility] AreaMizvfmkCMAJGMGVDA4550-26-78 13:25:00 Test Item Value Reference Range Interpretation Comments UA Turbidity (test code = Clear (09/16/2011 N UA Turbidity) 08:25:00) [facility] HospitalXobaewyELLERGOWCH8160-98-16 13:25:00 Test Item Value Reference Range Interpretation Comments UA Urobilinogen (test code *NA*(09/16/2011 0.1-1.0 = UA Urobilinogen) 08:25:00) [facility] AreaQyronovVGSQRCDJTU8627-75-93 13:25:00 Test Item Value Reference Range Interpretation Comments UA WBC (test code = no gt See_Comment N [Automa lorie message] The UA WBC) system which ge nerated this result transmit lorie reference range : <=5. The reference range was not used to interpr et this result as asher l/abnormal. [facility] AreaPjtrcfnTNEKZOOJEW4992-30-88 13:25:00 Test Item Value Reference Range Interpretation Comments UA RBC (test code = 1 See_Comment N [Automa lorie message] The UA RBC) system which ge nerated this result transmit lorie reference range : <=2. The reference range was not used to interpr et this result as asher l/abnormal. [facility] AreaUzfhtcoBJZJSGZCLJ0446-35-73 13:25:00 Test Item Value Reference Range Interpretation Comments UA Mucus (test code = Few /LPF UA Mucus) *NA*(09/16/2011 08:25:00) [facility] AreaFzptehtBSAZLUVMHY6346-41-02 13:25:00 Test Item Value Reference Range Interpretation Comments UA Ketones (test code Negative mg/dL = UA Ketones) *NA*(09/16/2011 08:25:00) [facility] HospitalIwtgtziLNSERIHBLQ4132-50-62 13:25:00 Test Item Value Reference Range Interpretation Comments UA Bili (test code = Negative *NA*(09/16/2011 UA Bili) 08:25:00) [facility] HospitalClsosyrXPFWLSJBOB6798-40-45 13:25:00 Test Item Value Reference Range Interpretation Comments UA Blood (test code = Negative (09/16/2011 N UA Blood) 08:25:00) [facility] HospitalRvcexmgVMOEFIOIUP7078-78-36 13:25:00 Test Item Value Reference Range Interpretation Comments UA Nitrite (test code Negative (09/16/2011 N = UA Nitrite) 08:25:00) [facility] HospitalXwkkdvzSTBWNKMZLW0384-84-53 13:25:00 Test Item Value Reference Range Interpretation Comments UA Leuk Est (test Negative (09/16/2011 N code = UA Leuk Est) 08:25:00) [facility] HospitalPwfcclzVUOXTBJCQJ0787-27-35 13:25:00 Test Item Value Reference Range Interpretation Comments UA Sq Epi (test code Occasional /LPF = UA Sq Epi) *NA*(09/16/2011 08:25:00) [facility] AreaTffrcfuNZZHBTRAUQ2851-12-27 13:25:00 Test Item Value Reference Range Interpretation Comments UA Glucose (test code Negative mg/dL = UA Glucose) *NA*(09/16/2011 08:25:00) [facility] AreaLdxibcyPVKXNEWQLK5288-56-21 13:25:00 Test Item Value Reference Range Interpretation Comments UA Protein (test code Negative mg/dL N = UA Protein) (09/16/2011 08:25:00) [facility] AreaFohmfcpGCQPQFCOMY4103-09-92 13:25:00 Test Item Value Reference Range Interpretation Comments UA Color (test code = Yellow *NA*(09/16/2011 UA Color) 08:25:00) [facility] AreaZamzpbtAEGJGNMYNL8515-55-01 13:25:00 Test Item Value Reference Range Interpretation Comments UA pH (test code = UA pH) 5.5 5.0-8.0 N [facility] AreaLwmdaigTNXPIHQTVT2441-78-70 13:25:00 Test Item Value Reference Range Interpretation Comments UA Spec Grav (test code = UA Spec Grav) 1.017 N [facility] AreaNscedecIKPFNVZVGT2425-85-14 13:25:00 Test Item Value Reference Range Interpretation Comments UA Turbidity (test code = Clear (09/16/2011 N UA Turbidity) 08:25:00) [facility] AreaVdsfwsrOSQUTMUZAQ6334-66-84 08:42:00 Test Item Value Reference Range Interpretation Comments UA Mucus (test code = Few /LPF UA Mucus) *NA*(09/15/2011 03:42:00) [facility] AreaSzzpeqlSXOYAVRXLL2754-95-64 08:42:00 Test Item Value Reference Range Interpretation Comments UA RBC (test code = 1 See_Comment N [Automa lorie message] The UA RBC) system which ge nerated this result transmit lorie reference range : <=2. The reference range was not used to interpr et this result as asher l/abnormal. [facility] AreaKnyvbrhDYEWHTQVPT8100-32-47 08:42:00 Test Item Value Reference Range Interpretation Comments UA Blood (test code = Negative (09/15/2011 N UA Blood) 03:42:00) [facility] AreaCdtuhorVCJCZZRIJT6801-63-63 08:42:00 Test Item Value Reference Range Interpretation Comments UA Nitrite (test code Negative (09/15/2011 N = UA Nitrite) 03:42:00) [facility] AreaXeqvyhaBGZKQRNRSW4073-83-42 08:42:00 Test Item Value Reference Range Interpretation Comments UA Leuk Est (test Negative (09/15/2011 N code = UA Leuk Est) 03:42:00) [facility] AreaTpiwtdvPTRVJLJTSW1813-21-11 08:42:00 Test Item Value Reference Range Interpretation Comments UA pH (test code = UA pH) 5.5 5.0-8.0 N [facility] AreaYyqizqfIKJOEEFKJU2004-67-51 08:42:00 Test Item Value Reference Range Interpretation Comments UA Protein (test code Negative mg/dL N = UA Protein) (09/15/2011 03:42:00) [facility] AreaPjomtlmXJJCHXDRLC3549-80-10 08:42:00 Test Item Value Reference Range Interpretation Comments UA Glucose (test code Negative mg/dL = UA Glucose) *NA*(09/15/2011 03:42:00) [facility] AreaKghalufQPVEMGCOQX2007-00-23 08:42:00 Test Item Value Reference Range Interpretation Comments UA Ketones (test code Negative mg/dL = UA Ketones) *NA*(09/15/2011 03:42:00) [facility] AreaYqpamwjEVJVXFRCIT9299-71-89 08:42:00 Test Item Value Reference Range Interpretation Comments UA Bili (test code = Negative *NA*(09/15/2011 UA Bili) 03:42:00) [facility] AreaPnhdmcaXZIYSFVDVL3797-33-30 08:42:00 Test Item Value Reference Range Interpretation Comments UA Color (test code = Yellow *NA*(09/15/2011 UA Color) 03:42:00) [facility] AreaQcbvlicQOYBNKACSG1065-22-85 08:42:00 Test Item Value Reference Range Interpretation Comments UA Turbidity (test code Slight A = UA Turbidity) *ABN*(09/15/2011 03:42:00) [facility] AreaYqfkshwUYKFCYQDTR3307-23-50 08:42:00 Test Item Value Reference Range Interpretation Comments UA Spec Grav (test code = UA Spec Grav) 1.012 N [facility] CenterCkwjrzvUYHSOQPJUX1516-48-03 08:42:00 Test Item Value Reference Range Interpretation Comments UA Sq Epi (test code = UA Sq Epi) None [facility]en [facility] HospitalDqrovtwMYVFMYHLBZ5027-37-34 08:42:00 Test Item Value Reference Range Interpretation Comments UA Urobilinogen (test code *NA*(09/15/2011 0.1-1.0 = UA Urobilinogen) 03:42:00) [facility]AyjxrrbKwikledzhflc6890-12-56 08:42:00 Test Item Value Reference Range Interpretation Comments Culture: Urine (test code = Culture: Urine) [facility] HospitalJlslwssCLOWPIYKZK0874-99-48 08:42:00 Test Item Value Reference Range Interpretation Comments UA Mucus (test code = Few /LPF UA Mucus) *NA*(09/15/2011 03:42:00) [facility] HospitalGhtxwrwDEVNJGFQIR8537-33-15 08:42:00 Test Item Value Reference Range Interpretation Comments UA RBC (test code = 1 See_Comment N [Automa lorie message] The UA RBC) system which ge nerated this result transmit lorie reference range : <=2. The reference range was not used to interpr et this result as asher l/abnormal. [facility] HospitalDgxtfpzPHKGPAUHPV8109-23-83 08:42:00 Test Item Value Reference Range Interpretation Comments UA Blood (test code = Negative (09/15/2011 N UA Blood) 03:42:00) [facility] CenterNtoeymuQWXEYWDIZE3487-13-57 08:42:00 Test Item Value Reference Range Interpretation Comments UA Nitrite (test code Negative (09/15/2011 N = UA Nitrite) 03:42:00) [facility] CenterRajzztiAKLONHJDMU9037-81-53 08:42:00 Test Item Value Reference Range Interpretation Comments UA Leuk Est (test Negative (09/15/2011 N code = UA Leuk Est) 03:42:00) [facility] CenterBrcuxuxQOBVGVBHRK6602-02-06 08:42:00 Test Item Value Reference Range Interpretation Comments UA pH (test code = UA pH) 5.5 5.0-8.0 N [facility] CenterPrgowrtZQBDWNPFAA6235-90-79 08:42:00 Test Item Value Reference Range Interpretation Comments UA Protein (test code Negative mg/dL N = UA Protein) (09/15/2011 03:42:00) [facility] AreaRkvigrmHXXSHEZDMX0920-24-35 08:42:00 Test Item Value Reference Range Interpretation Comments UA Glucose (test code Negative mg/dL = UA Glucose) *NA*(09/15/2011 03:42:00) [facility] AreaWjkxadnHDZEEGFQHY6082-09-04 08:42:00 Test Item Value Reference Range Interpretation Comments UA Ketones (test code Negative mg/dL = UA Ketones) *NA*(09/15/2011 03:42:00) [facility] AreaHelcrtjAYJPFIEFTP5247-45-58 08:42:00 Test Item Value Reference Range Interpretation Comments UA Bili (test code = Negative *NA*(09/15/2011 UA Bili) 03:42:00) [facility] AreaRvpgdthKHKYHBVYPZ4297-00-16 08:42:00 Test Item Value Reference Range Interpretation Comments UA Color (test code = Yellow *NA*(09/15/2011 UA Color) 03:42:00) [facility] AreaXkyuhboWBIKGQOURK3258-28-51 08:42:00 Test Item Value Reference Range Interpretation Comments UA Turbidity (test code Slight A = UA Turbidity) *ABN*(09/15/2011 03:42:00) [facility] AreaVxlubnoXNMGGPPUIK8559-66-38 08:42:00 Test Item Value Reference Range Interpretation Comments UA Spec Grav (test code = UA Spec Grav) 1.012 N [facility] AreaPocyjswCRCSVKFGXY8266-48-23 08:42:00 Test Item Value Reference Range Interpretation Comments UA Sq Epi (test code = UA Sq Epi) None [facility] AreaUgdorzkJHDENCQQJK7076-78-23 08:42:00 Test Item Value Reference Range Interpretation Comments UA Urobilinogen (test code *NA*(09/15/2011 0.1-1.0 = UA Urobilinogen) 03:42:00) [facility]atievuftilp8366-93-61 08:42:00 Test Item Value Reference Range Interpretation Comments Culture: Urine (test code = Culture: Urine) [facility] AreaDgnkpwfNKKCUYOZXU8033-76-36 08:42:00 Test Item Value Reference Range Interpretation Comments UA Mucus (test code = Few /LPF UA Mucus) *NA*(09/15/2011 03:42:00) [facility] AreaAlcyvyhULDNYXVSLF6350-79-21 08:42:00 Test Item Value Reference Range Interpretation Comments UA RBC (test code = 1 See_Comment N [Automa lorie message] The UA RBC) system which ge nerated this result transmit lorie reference range : <=2. The reference range was not used to interpr et this result as asher l/abnormal. [facility] AreaKtbclsrMYUOCWPEGT4012-10-60 08:42:00 Test Item Value Reference Range Interpretation Comments UA Blood (test code = Negative (09/15/2011 N UA Blood) 03:42:00) [facility] AreaMuelzrnJTXHENIEUB5741-08-60 08:42:00 Test Item Value Reference Range Interpretation Comments UA Nitrite (test code Negative (09/15/2011 N = UA Nitrite) 03:42:00) [facility] AreaGiqdyimKOFMLMCWRF6790-88-50 08:42:00 Test Item Value Reference Range Interpretation Comments UA Leuk Est (test Negative (09/15/2011 N code = UA Leuk Est) 03:42:00) [facility] AreaLsekzbpHQIDPOWVKO5187-90-18 08:42:00 Test Item Value Reference Range Interpretation Comments UA pH (test code = UA pH) 5.5 5.0-8.0 N [facility] AreaJbrpoinFAONAFZBZE6001-19-37 08:42:00 Test Item Value Reference Range Interpretation Comments UA Protein (test code Negative mg/dL N = UA Protein) (09/15/2011 03:42:00) [facility] AreaLwcupqvCZDPLOGHJL2053-58-64 08:42:00 Test Item Value Reference Range Interpretation Comments UA Glucose (test code Negative mg/dL = UA Glucose) *NA*(09/15/2011 03:42:00) [facility] AreaEsiukkvZBMIGSRJCX2710-92-71 08:42:00 Test Item Value Reference Range Interpretation Comments UA Ketones (test code Negative mg/dL = UA Ketones) *NA*(09/15/2011 03:42:00) [facility] AreaViajsuwLXDIQWLTOC0374-20-44 08:42:00 Test Item Value Reference Range Interpretation Comments UA Bili (test code = Negative *NA*(09/15/2011 UA Bili) 03:42:00) [facility] AreaLahcqgnDWEYSHECPK6609-14-45 08:42:00 Test Item Value Reference Range Interpretation Comments UA Color (test code = Yellow *NA*(09/15/2011 UA Color) 03:42:00) [facility]AMLGCNSEBR3851[facility]-89 08:42:00 Test Item Value Reference Range Interpretation Comments UA Turbidity (test code Slight A = UA Turbidity) *ABN*(09/15/2011 03:42:00) [facility] AreaZjpinrnVCEHVPNIYC1974-73-58 08:42:00 Test Item Value Reference Range Interpretation Comments UA Spec Grav (test code = UA Spec Grav) 1.012 N [facility] CenterZmjjagnPAMQVMNJUS3110-29-03 08:42:00 Test Item Value Reference Range Interpretation Comments UA Sq Epi (test code = UA Sq Epi) None Seen [facility] AreaXbaxjpkCQHSPBKQTA1429-40-12 08:42:00 Test Item Value Reference Range Interpretation Comments UA Urobilinogen (test code *NA*(09/15/2011 0.1-1.0 = UA Urobilinogen) 03:42:00) [facility] CenterDuebrctFobbmlriqpqg7037-34-24 08:42:00 Test Item Value Reference Range Interpretation Comments Culture: Urine (test code = Culture: Urine) [facility] CenterFuzztkwOEFNNTICX4227-60-92 08:40:00 Test Item Value Reference Range Interpretation Comments TSH (test code = TSH) 3.390 0.360-3.740 N [facility] CenterYwemgolSEFLFSSOO1081-11-90 08:40:00 Test Item Value Reference Range Interpretation Comments T4 (test code = T4) 8.5 4.7-13.3 N [facility] CenterGvgasazEWMHXHIFY9837-39-51 08:40:00 Test Item Value Reference Range Interpretation Comments T3 Uptake (test code = T3 Uptake) 33 31-39 N [facility] CenterCfnveyrXEDOTLGCZ9433-88-81 08:40:00 Test Item Value Reference Range Interpretation Comments TSH (test code = TSH) 3.390 0.360-3.740 N [facility] CenterGqlsgqdBLSXFCIZZ4485-60-01 08:40:00 Test Item Value Reference Range Interpretation Comments Total Protein (test code = Total 6.4 6.4-8.4 N Protein) [facility] CenterTrbmhxxEQBBEMJTW7362-47-60 08:40:00 Test Item Value Reference Range Interpretation Comments AST (test code = AST) 14 See_Comment N [Auto mated message] The system which ge nerated this result transmit lorie reference range : <=37. The reference range was not used to interpr et this result as asher l/abnormal. [facility] EfokhwyDZAIUULWH5629-97-63 08:40:00 Test Item Value Reference Range Interpretation Comments Bili Total (test code = Bili Total) 0.4 0.2-1.3 N [facility] CenterVhhcltaJNTZFUZXF6903-12-73 08:40:00 Test Item Value Reference Range Interpretation Comments ALT (test code = ALT) 24 See_Comment N [Auto mated message] The system which ge nerated this result transmit lorie reference range : <=65. The reference range was not used to interpr et this result as asher l/abnormal. [facility] VxfnystRJCMAUUHF8752-09-11 08:40:00 Test Item Value Reference Range Interpretation Comments Alk Phos (test code = Alk Phos) 81 39-136 N [facility] CenterAfpvgjjLDIFDLJCI0140-51-78 08:40:00 Test Item Value Reference Range Interpretation Comments Albumin Lvl (test code = Albumin Lvl) 3.3 3.5-5.0 L [facility] WsnybtuISPLBFAJD6995-51-47 08:40:00 Test Item Value Reference Range Interpretation Comments A/G Ratio (test code = A/G Ratio) 1.1 0.7-1.6 N [facility] CenterXxdehojTLNWKOEHD9549-63-39 08:40:00 Test Item Value Reference Range Interpretation Comments B/C Ratio (test code = B/C Ratio) 14 6-25 N [facility] CenterPxvzynnMHHICYULH4724-95-57 08:40:00 Test Item Value Reference Range Interpretation Comments Globulin (test code = Globulin) 3.1 2.0-4.0 N [facility] CenterYqkoztsVQWHBIJWF3477-88-75 08:40:00 Test Item Value Reference Range Interpretation Comments FTI (test code = FTI) 2.8 [facility] CenterOfnidpgCJYLKCOAAM4579-33-09 08:40:00 Test Item Value Reference Range Interpretation Comments PTT (test code = PTT) 32.4 s 22.9-35.8 N [facility] CenterCuzrlwdIFZSNLHGHA0542-02-02 08:40:00 Test Item Value Reference Range Interpretation Comments PT (test code = PT) 13.0 s 12.0-14.7 N [facility] CenterJgrijgiRTPJPMCLOA8714-62-87 08:40:00 Test Item Value Reference Range Interpretation Comments INR (test code = INR) 0.98 0.85-1.17 N [facility] CenterLdlkjydVTQAPFCDB9494-98-45 08:40:00 Test Item Value Reference Range Interpretation Comments TSH (test code = TSH) 3.390 0.360-3.740 N [facility] CenterOdpxtsaBTWQBPHBY5658-16-42 08:40:00 Test Item Value Reference Range Interpretation Comments T4 (test code = T4) 8.5 4.7-13.3 N [facility] CenterHrzmgjyVQIJJANNG8492-91-18 08:40:00 Test Item Value Reference Range Interpretation Comments T3 Uptake (test code = T3 Uptake) 33 31-39 N [facility] CenterLgvtjjsONIGGHCZH3300-18-64 08:40:00 Test Item Value Reference Range Interpretation Comments TSH (test code = TSH) 3.390 0.360-3.740 N [facility] CenterVeqafthPQFJYGNLW9399-64-63 08:40:00 Test Item Value Reference Range Interpretation Comments Total Protein (test code = Total 6.4 6.4-8.4 N Protein) [facility] CenterRburyllDXIIKINLM5110-24-64 08:40:00 Test Item Value Reference Range Interpretation Comments AST (test code = AST) 14 See_Comment N [Auto mated message] The system which ge nerated this result transmit lorie reference range : <=37. The reference range was not used to interpr et this result as asher l/abnormal. [facility] CenterAwumoraBWOISTQCJ1147-14-52 08:40:00 Test Item Value Reference Range Interpretation Comments Bili Total (test code = Bili Total) 0.4 0.2-1.3 N [facility] CenterYidnuptSRMUSLYIY7577-66-88 08:40:00 Test Item Value Reference Range Interpretation Comments ALT (test code = ALT) 24 See_Comment N [Auto mated message] The system which ge nerated this result transmit lorie reference range : <=65. The reference range was not used to interpr et this result as asher l/abnormal. [facility] CenterZkohuxxIHBZEFJXO8011-88-34 08:40:00 Test Item Value Reference Range Interpretation Comments Alk Phos (test code = Alk Phos) 81 39-136 N [facility] CenterFuhzmoqKGSNVOPVG0788-32-63 08:40:00 Test Item Value Reference Range Interpretation Comments Albumin Lvl (test code = Albumin Lvl) 3.3 3.5-5.0 L [facility] CenterWuujlldWNDYXRFJG1094-65-68 08:40:00 Test Item Value Reference Range Interpretation Comments A/G Ratio (test code = A/G Ratio) 1.1 0.7-1.6 N [facility] CenterUrslmhnNTRWOOTJO5103-88-55 08:40:00 Test Item Value Reference Range Interpretation Comments B/C Ratio (test code = B/C Ratio) 14 6-25 N [facility] CenterNrpcolsENGEHRNJK1943-88-43 08:40:00 Test Item Value Reference Range Interpretation Comments Globulin (test code = Globulin) 3.1 2.0-4.0 N [facility] CenterHozicfaVHHORWTOF0593-74-34 08:40:00 Test Item Value Reference Range Interpretation Comments FTI (test code = FTI) 2.8 [facility] CenterAqoorjwPOKAUXKVIN6576-81-42 08:40:00 Test Item Value Reference Range Interpretation Comments PTT (test code = PTT) 32.4 s 22.9-35.[address] [facility] CenterDlgkjgcTYDRNNNQDL2000-13-78 08:40:00 Test Item Value Reference Range Interpretation Comments PT (test code = PT) 13.0 s 12.0-14.[address] [facility] CenterPedzoifNUSURJPMOR6520-46-16 08:40:00 Test Item Value Reference Range Interpretation Comments INR (test code = INR) 0.98 0.85-1.17 N [facility] CenterNpdawoeZFHGEILZB9836-33-07 08:40:00 Test Item Value Reference Range Interpretation Comments TSH (test code = TSH) 3.390 0.360-3.740 N [facility] CenterGpgmtshCWFBSRDSK2503-15-68 08:40:00 Test Item Value Reference Range Interpretation Comments T4 (test code = T4) 8.5 4.7-13.3 N [facility] CenterYggxdfoVOAUOPFVC8327-39-30 08:40:00 Test Item Value Reference Range Interpretation Comments T3 Uptake (test code = T3 Uptake) 33 31-39 N [facility] CenterArnpvlqULPBVQPNJ3983-42-47 08:40:00 Test Item Value Reference Range Interpretation Comments TSH (test code = TSH) 3.390 0.360-3.740 N [facility] CenterRfxiwbtYIFNSVCID1794-64-58 08:40:00 Test Item Value Reference Range Interpretation Comments Total Protein (test code = Total 6.4 6.4-8.4 N Protein) [facility] CenterAbgryllAEDHNVHDZ8160-48-56 08:40:00 Test Item Value Reference Range Interpretation Comments AST (test code = AST) 14 See_Comment N [Auto mated message] The system which ge nerated this result transmit lorie reference range : <=37. The reference range was not used to interpr et this result as asher l/abnormal. [facility] CenterXswnzpzJXEQTUKXU5242-33-56 08:40:00 Test Item Value Reference Range Interpretation Comments Bili Total (test code = Bili Total) 0.4 0.2-1.3 N [facility] CenterSrozmpvBBSVORYKB5450-67-55 08:40:00 Test Item Value Reference Range Interpretation Comments ALT (test code = ALT) 24 See_Comment N [Auto mated message] The system which ge nerated this result transmit lorie reference range : <=65. The reference range was not used to interpr et this result as asher l/abnormal. [facility] CenterMqqbeytAFICEOOLY8623-49-73 08:40:00 Test Item Value Reference Range Interpretation Comments Alk Phos (test code = Alk Phos) 81 39-136 N [facility] CenterAvrxojbLOHRTYAIE4574-47-52 08:40:00 Test Item Value Reference Range Interpretation Comments Albumin Lvl (test code = Albumin Lvl) 3.3 3.5-5.0 L [facility] CenterBloesecNMPWGIFDI8079-32-80 08:40:00 Test Item Value Reference Range Interpretation Comments A/G Ratio (test code = A/G Ratio) 1.1 0.7-1.6 N [facility] CenterKhkvjpcXYMREWQMB9587-35-03 08:40:00 Test Item Value Reference Range Interpretation Comments B/C Ratio (test code = B/C Ratio) 14 6-25 N [facility] CenterGwdzolgIKGOKXUNI4577-57-03 08:40:00 Test Item Value Reference Range Interpretation Comments Globulin (test code = Globulin) 3.1 2.0-4.0 N [facility] CenterAuipeneMWHRHZUDT5527-42-30 08:40:00 Test Item Value Reference Range Interpretation Comments FTI (test code = FTI) 2.8 [facility] CenterWggzeetKUQLBLOIZF1566-15-56 08:40:00 Test Item Value Reference Range Interpretation Comments PTT (test code = PTT) 32.4 s 22.9-35.[address] [facility] CenterYatgaskKQMYKAQBCQ5007-92-67 08:40:00 Test Item Value Reference Range Interpretation Comments PT (test code = PT) 13.0 s 12.0-14.[address] [facility] CenterLadyhasTSAEHZFYGT0809-97-19 08:40:00 Test Item Value Reference Range Interpretation Comments INR (test code = INR) 0.98 0.85-1.17 [facility]
[2022-08-13] MEDS ORDERED: ONDANSETRON 4 MG (ODT) TAB ONE (03:43)
[2022-08-13] MEDS ORDERED: IBUPROFEN 200 MG TAB PO ONE (03:43)
[2022-08-13] MEDS ORDERED: IBUPROFEN 400 MG TAB ONE (03:43)
[2022-08-13] MEDS ORDERED: CODEINE 30MG/APAP 300MG TAB ONE (03:43)
[2022-08-13] MEDS ORDERED: HYDROCODONE/APAP 5/325 MG TAB ONE (05:29)
--- NOTE | 2022-08-13 05:50 | ER ---
Nurse's Notes [facility] Name: Bryan Graf Age: 71 yrs Sex: Male : 1950 Arrival Date: 08/13/2022 Time: 03:22 Bed 15 Private MD: Diagnosis: Bilateral tinea pedis, bilateral toenail fungus, bilateral tenia corporis, chronic bilateral foot pain;Tinea pedis Presentation: 08/13 03:28 Chief complaint: EMS states: Toned out for bilateral toe pain, toenails noted to be ll3 overgrown and cutting into skin. Coronavirus screen: Vaccine status: Patient reports receiving the 2nd dose of the covid vaccine. At this time, the client does not indicate any symptoms associated with coronavirus-19. Ebola Screen: No symptoms or risks identified at this time. Initial Sepsis Screen: Does the patient meet any 2 criteria? No. Patient's initial sepsis screen is negative. Does the patient have a suspected source of infection? No. Patient's initial sepsis screen is negative. Risk Assessment: Do you want to hurt yourself or someone else? Patient reports no desire to harm self or others. Onset of symptoms was August 13, 2022. 03:28 Method Of Arrival: EMS: [facility] ll3 03:28 Acuity: GELACIO 4 ll3 Triage Assessment: 03:30 General: Appears uncomfortable, Behavior is calm, cooperative. Pain: Complains of pain ll3 in right foot and left foot Pain does not radiate. Neuro: Level of Consciousness is awake, alert, obeys commands, Oriented to person, place, time, situation. Derm: Wound noted Left second toenail Wound is big toenail cutting into second toe, no bleeding present. Historical: - Allergies: 03:30 Aspirin; ll3 03:30 PENICILLINS; ll3 - Home Meds: 03:30 Keppra Oral [Active]; ll3 - PMHx: 03:30 Chronic pain; CVA; Hypertension; Migraine; Pneumonia; Seizures; swelling and pain to L ll3 lower leg; COPD; - PSHx: 03:30 heart surgery; ll3 - Immunization history:: Client reports receiving the 2nd dose of the Covid vaccine. - Social history:: Smoking status: Patient reports the use of cigarette tobacco products, smokes one pack cigarettes per day. - Family history:: not pertinent. Screenin:37 [facility] ED Fall Risk Assessment (Adult) History of falling in the last 3 months, ll3 including since admission No falls in past 3 months (0 pts) Confusion or Disorientation No (0 pts) Intoxicated or Sedated No (0 pts) Impaired Gait No (0 pts) Mobility Assist Device Used No (0 pt) Altered Elimination No (0 pt) Score/Fall Risk Level 0 - 2 = Low Risk Oriented to surroundings, Maintained a safe environment, Educated pt \T\ family on fall prevention, incl call for assistance when getting out of bed. Abuse screen: Denies threats or abuse. Denies injuries from another. Nutritional screening: No deficits noted. Tuberculosis screening: No symptoms or risk factors identified. Assessment: 03:30 General: See triage assessment. ll3 04:37 Reassessment: No changes from previously documented assessment. Patient and/or family ll3 updated on plan of care and expected duration. Pain level reassessed. Patient is alert, oriented x 3, equal unlabored respirations, skin warm/dry/pink. Vital Signs: 03:28 BP 129 / 59; Pulse 70; Resp 16; Temp 98.1(O); Pulse Ox 97% on R/A; Weight 72.57 kg (R); ll3 Height 5 ft. 8 in. (R); 04:37 BP 134 / 62; Pulse 59; Resp 15; Pulse Ox 98% on R/A; ll3 06:00 BP 130 / 53; Pulse 59; Resp 16; Pulse Ox 99% on R/A; ll3 03:28 Body Mass Index 24.33 (72.57 kg, 172.72 cm) ll3 ED Course: 03:24 Patient arrived in ED. rv1 03:27 Wild Coulter MD is Attending Physician. sp4 03:30 Triage completed. ll3 03:30 Arm band placed on Patient placed in an exam room, on a stretcher, on pulse oximetry. ll3 04:37 Patient has correct armband on for positive identification. Bed in low position. Call ll3 light in reach. Side rails up X 1. 04:37 No provider procedures requiring assistance completed. ll3 05:48 Yimi Heard DPM is Referral Physician. sp4 06:15 Patient did not have IV access during this emergency room visit. ll3 Administered Medications: 03:43 Drug: Ibuprofen PO 600 mg Route: PO; ll3 06:14 Follow up: Response: No adverse reaction ll3 03:43 Drug: Acetaminophen-Codeine PO (300 mg-30 mg) 2 tabs Route: PO; ll3 06:14 Follow up: Response: No adverse reaction ll3 03:44 Drug: Ondansetron PO 4 mg Route: PO; ll3 06:14 Follow up: Response: No adverse reaction ll3 05:25 Drug: HYDROcodone-acetaminophen PO 5 mg-325 mg 1 tabs Route: PO; ll3 06:14 Follow up: Response: No adverse reaction; Marked relief of symptoms ll3 Medication: 04:38 VIS not applicable for this client. ll3 Outcome: 05:49 Discharge ordered by . sp4 06:15 Discharged to home ambulatory, with family. ll3 06:15 Condition: stable 06:15 Discharge instructions given to patient, family, Instructed on discharge instructions, follow up and referral plans. Demonstrated understanding of instructions, follow-up care. 06:19 Patient left the ED. ll3 Signatures: Shanti Marie RN RN ll3 Jada Wood rv1 Wild Coulter MD MD sp4
--- NOTE | 2022-08-13 05:50 | EDPHYS ---
Physician Documentation [facility] Name: Bryan Graf Age: 71 yrs Sex: Male : 1950 Arrival Date: 08/13/2022 Time: 03:22 Bed 15 Private MD: ED Physician Wild Coulter HPI: 08/13 03:28 This 71 yrs old Male presents to ER via Unassigned with complaints of sp4 bilateral foot / toe pains. 05:43 71-year-old male with past medical history of chronic pain, CVA, hypertension, sp4 migraine, pneumonia, seizures presents with subacute onset of bilateral foot pain particularly pain in all the toes, and pain between the toes. Patient also reports history of chronically misshapen and discolored toenails consistent with fungal toenail. Patient is here today with EMS for evaluation of bilateral foot pain and bilateral toe pain all of essentially all of his toes. No other complaints today. Historical: - Allergies: 03:30 Aspirin; ll3 03:30 PENICILLINS; ll3 - Home Meds: 03:30 Keppra Oral [Active]; ll3 - PMHx: 03:30 Chronic pain; CVA; Hypertension; Migraine; Pneumonia; Seizures; swelling and pain to L ll3 lower leg; COPD; - PSHx: 03:30 heart surgery; ll3 - Immunization history:: Client reports receiving the 2nd dose of the Covid vaccine. - Social history:: Smoking status: Patient reports the use of cigarette tobacco products, smokes one pack cigarettes per day. - Family history:: not pertinent. ROS: 05:43 Constitutional: Negative for fever, chills, and weight loss, Eyes: Negative for injury, sp4 pain, redness, and discharge, ENT: Negative for injury, pain, and discharge, Neck: Negative for injury, pain, and swelling, Cardiovascular: Negative for chest pain, palpitations, and edema, Respiratory: Negative for shortness of breath, cough, wheezing, and pleuritic chest pain, Abdomen/GI: Negative for abdominal pain, nausea, vomiting, diarrhea, and constipation, Back: Negative for injury and pain, : Negative for injury, bleeding, discharge, and swelling, MS/Extremity: Negative for injury and deformity, positive for bilateral foot pain, bilateral toe pain of all the toes, bilateral fungal toenails, bilateral toe crusting and pain Skin: Negative for injury, rash, and discoloration, Neuro: Negative for headache, weakness, numbness, tingling, and seizure, Psych: Negative for depression, anxiety, Allergy/Immunology: Negative for hives, rash, and allergies Endocrine: Negative for neck swelling, polydipsia, polyuria, polyphagia, and weight changes Hematologic/Lymphatic: Negative for swollen nodes, abnormal bleeding, and unusual bruising Exam: 05:43 Constitutional: This is a well developed, well nourished patient who is awake, alert, sp4 and in no acute distress. Patient is a frail elderly male, who is arriving with EMS. Signs of moderate diffuse physical deconditioning Head/Face: Normocephalic, atraumatic. Eyes: Pupils equal round and reactive to light, extra-ocular motions intact. Lids and lashes normal. Conjunctiva and sclera are not injected. Cornea within normal limits. Periorbital areas with no swelling, redness, or edema. ENT: Nares patent. No nasal discharge, no septal abnormalities noted. Tympanic membranes are normal and external auditory canals are clear. Oropharynx with no redness, swelling, or masses, exudates, or evidence of obstruction, uvula midline. Mucous membranes moist. Neck: Trachea midline, no thyromegaly or masses palpated, and no cervical lymphadenopathy. Supple, full range of motion without nuchal rigidity, or vertebral point tenderness. No Meningismus. Chest/axilla: Normal chest wall appearance and motion. Nontender with no deformity. No lesions are appreciated. Cardiovascular: Regular rate and rhythm with a normal S1 and S2. No gallops, murmurs, or rubs. Normal PMI, no JVD. No pulse deficits. Respiratory: Lungs have equal breath sounds bilaterally, clear to auscultation and percussion. No rales, rhonchi or wheezes noted. No increased work of breathing, no retractions or nasal flaring. Abdomen/GI: Soft, non-tender, with normal bowel sounds. No distension or tympany. No guarding or rebound. No evidence of tenderness throughout. Back: No spinal tenderness. No costovertebral tenderness. Skin: Warm, dry with normal turgor. Normal color with no rashes, no lesions, and no evidence of cellulitis. Bilateral foot skin discoloration from poor hygiene MS/ Extremity: Pulses equal, no cyanosis. Neurovascular intact. Full, normal range of motion. Discolored thickened toenails secondary to chronic fungal infection, bilateral skin crusting between the toes secondary to poor hygiene, no sign of cellulitis, neurovascular status intact, intact peripheral pulses Neuro: Awake and alert, GCS 15, oriented to person, place, time, and situation. Cranial nerves II-XII grossly intact. Motor strength 5/5 in all extremities. Sensory grossly intact. Psych: Awake, alert, with orientation to person, place and time. Behavior, mood, and affect are within normal limits Vital Signs: 03:28 BP 129 / 59; Pulse 70; Resp 16; Temp 98.1(O); Pulse Ox 97% on R/A; Weight 72.57 kg (R); ll3 Height 5 ft. 8 in. (R); 04:37 BP 134 / 62; Pulse 59; Resp 15; Pulse Ox 98% on R/A; ll3 06:00 BP 130 / 53; Pulse 59; Resp 16; Pulse Ox 99% on R/A; ll3 03:28 Body Mass Index 24.33 (72.57 kg, 172.72 cm) ll3 MDM: 03:28 Patient medically screened. sp4 05:43 Differential Diagnosis Chronic bilateral foot pain associated with fungal toenails. sp4 Data reviewed: vital signs, nurses notes, EMS record, old medical records. ED course: Patient's feet were cleaned and irrigated, patient was given pain medicine in ER today, overall this problem is not emergent, patient will be referred to production painter for management of toenail fungus, also bilateral chronic foot pain management. . 08/13 03:27 Order name: Wound Care; Complete Time: 04:38 sp4 Administered Medications: 03:43 Drug: Ibuprofen PO 600 mg Route: PO; ll3 06:14 Follow up: Response: No adverse reaction ll3 03:43 Drug: Acetaminophen-Codeine PO (300 mg-30 mg) 2 tabs Route: PO; ll3 06:14 Follow up: Response: No adverse reaction ll3 03:44 Drug: Ondansetron PO 4 mg Route: PO; ll3 06:14 Follow up: Response: No adverse reaction ll3 05:25 Drug: HYDROcodone-acetaminophen PO 5 mg-325 mg 1 tabs Route: PO; ll3 06:14 Follow up: Response: No adverse reaction; Marked relief of symptoms ll3 Disposition Summary: 08/13/22 05:49 Discharge Ordered Location: Home sp4 Problem: new sp4 Symptoms: have improved sp4 Condition: Stable sp4 Diagnosis - Bilateral tinea pedis, bilateral toenail fungus, bilateral tenia corporis, chronic sp4 bilateral foot pain - Tinea pedis sp4 Followup: sp4 - With: Yimi Heard DPM - When: 7 - 10 days - Reason: Recheck today's complaints Discharge Instructions: - Discharge Summary Sheet sp4 - Athlete's Foot, [id number] sp4 Forms: - Thank You Letter sp4 Signatures: Shanti Marie RN RN 3 Wild Coulter MD MD sp4
[2022-08-13 06:28] VITALS: TEMP 98.1
[2022-08-13 06:29] VITALS: BP 134/62; O2SAT 98
== END 2022-08-13 06:19 | disposition home or self-care (01) ==
LOC: ER 03:22
DX: B35.3 Tinea pedis (principal); B35.4 Tinea corporis; M79.671 Pain in right foot
CPT/HCPCS: 99284; Q0162

== ENCOUNTER 2022-09-12 03:41 | Observation (INO) | payer OTHER ==
--- OUTSIDE RECORDS SUMMARY | 2022-09-12 03:52 | XMS REPORT | Continuity of Care Document ---
:1950 Author Organization [facility] t Address [address] [facility] [address] [place] [address] Care Team Providers Name Role Phone Uli Botello Rebecca Primary Care Physician MIKI NICHOLS Attending Clinician Unavailable CLARY RBAY Attending Clinician Unavailable AUGUSTIN DC Attending Clinician [...] ([facility] n[facility]25 [facility] obstructiv obstructiv 00:00: Ga dical e e 00 Center pulmonary pulmonary disease) disease) Altered Altered Disease Active [facility] mental mental 8-25 [facility] status status 00:00: Medical 00 [place] Ptosis, Ptosis, Disease Active [facility] left left 8-25 [facility] 00:[facility]: Medical 00 [place] S/P CABG x S/P CABG x Disease [...] fibrillati fibrillati 00:00: Me dical on on [place] Pulmonary Pulmonary Disease Active [facility] embolism embolism 8-14 [facility] 00:[facility]: Medical [place] Left-sided Left-sided Disease Active [facility] muscle muscle 6-26 [facility] weakness weakness 00:00: Medica l 00 [place] Muscle Muscle Disease Active [facility] cramps cramps 6-26 [facility] 00:00: Medical [place] Tension Tension Disease Active [facility] type type 6-26 [facility] headache headache 00:00: Medica l 00 Center CVA CVA Disease Recurre [facility] (cerebral (cerebral nce 6-24 [facility] vascular vascular 00:00: Medica l accident) accident) 00 Cent er Seizure Seizure Disease Recurre [facility] disorder disorder nce 6-24 [facility] 00:[facility]: Medical 00 [place] History of History of Disease Recurre [facility] atrial atrial nce 6-24 [facility] fibrillati fibrillati 00:00: Me dical on Center Chronic Chronic Disease Active [facility] anticoagul anticoagul 6-24 Thao kes ation ation 00:00: Medical 00 [place] Cellulitis Cellulitis Disease Active [facility] of of 3[facility]19 [facility]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 00:00: 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 space of 00 [place] mouth mouth Mandibular Mandibular Disease Active [facility] abscess abscess 3-18 [facility] 00:[facility]: Medical 00 Center CVA CVA Diagnosis Active 2011-09-21 Mem oria Active 09-12 14:49:00 l 09/13/2011 06:00: Richard vargas 00 Rehabilita tion Dysarthria Problem Active 2011-10-03 M emoria Dysarthria 08:09:33 l Active [place] Problem 10/03/2011 [facility] Weakness Weakness Problem Active 2011-10-03 Memoria Active 08:09:33 l Problem Miguel 10/03/2011 [facility] CVA CVA Diagnosis Active 2011-09-21 Mem oria [...] Center s aspirin aspirin Active Memoria l [place] codeine codeine Active Memoria l Miguel penicill penicill Active Memori a ins ins l Miguel Family History Family Member Diagnosis Comments Start Date Stop Date Source Natural mother Diabetes [facility] Social History Social Habit Start Date Stop Date Quantity Comments Source History of tobacco Cigarette Smoker [facility] Alcohol intake 2016-12-13 2016-12-[address] [facility] 00:00:00 00:00:00 non-drinker of Medical nter alcohol (finding) Tobacco use and 2016-11-26 2016-11-26 Smokeless [address] [facility] exposure 00:00[facility]00 00:00:00 non-user [facility] Center Cigarettes smoked 2016-11-26 2016-11-[address] [facility] [place] current (pack per 00:00:00 00:00:00 Medical Center day) - Reported Sex Assigned At [birth year] [facility] Thao [place] 00:00:00 00:00:00 Medical Center Smoking Status Start Date Stop Date Source Smokes tobacco daily 2016-11-26 00:00:00 [facility] Medications Ordered Filled Start Stop Current [...] [facility] 15 mcg/2 mL 00:00: total) by edical nebulizer 00 nebulizati Cent er solution [...] PO, Memoria 6-16 Substituti l 23:36: on [place] 37 Allowed, TAB Soma 2011-0 Yes 1, PO, Memoria 6-16 Substituti l 23:36: on [place] 37 Allowed, TAB Soma 2011-0 Yes 1, PO, Memoria 6-16 Substituti l 23:36: on Miguel 37 Allowed, TAB Soma 2012-0 Yes 1, PO, Memoria 6-16 Substituti l 23:36: on Miguel 37 Allowed, TAB OXYcodone 2011-0 Yes 1, PO, Memori a 6-16 PRN, as l 23:36: needed for Miguel 23 pain, Substituti on Allowed, TAB OXYcodone 2012-0 Yes 1, PO, Memori a 6-16 PRN, as l 23:36: needed for [place] 23 pain, Substituti on Allowed, TAB OXYcodone 2011-0 Yes 1, PO, Memori a 6-16 PRN, as l 23:36: needed for [place] 23 pain, Substituti on Allowed, TAB OXYcodone [...] 6-15 [place] tab, PO, l 19:27: Bedtime, [place] 59 30 tab, Substituti on Allowed, TAB Ambien 5 mg Yes Meilani H 5 mg, 1 Memoria oral tablet 6-15 [place] tab, PO, l 19:27: Bedtime, Miguel 59 30 tab, Substituti on Allowed, TAB Ambien 5 mg Yes Meilani H 5 mg, 1 Memoria oral tablet 6-15 [place] tab, PO, l 19:27: Bedtime, [place] 59 30 tab, Substituti on Allowed, TAB [...] tab, PO, l tablet 19:27: Q12H, 60 [place] 52 tab, Substituti on Allowed, TAB Keppra [...] tab, PO, l tablet 19:27: BID, 60 [place] 44 tab, Substituti on Allowed, TAB famotidine [...] cap, PO, l capsule 19:27: BID, 60 [place] 40 cap, Substituti on Allowed, CAP Colace 100 2011-0 Yes Meilani H 100 mg, 1 Memoria mg oral 6-15 [place] cap, PO, l capsule 19:27: BID, 60 Miguel 40 cap, Substituti on Allowed, CAP Colace 100 2011-0 Yes Meilani H 100 mg, 1 Memoria mg oral 6-15 [place] cap, PO, l capsule 19:27: BID, 60 [place] 40 cap, Substituti on Allowed, CAP Colace [...] tab, Substituti on Allowed, TAB Plavix 75 2012-0 Yes Meilani H 75 [...] 34 tab, Substituti on Allowed, TAB atorvastati 2011- Yes Meilani H 80 mg, 1 Memoria [...] 6-09 [place] Route: PO, l 02:00: Bedtime, [place] 00 Start date: 09/21/11 21:00:00, Duration: 30 day, Stop date: 10/20/11 21:00:00 Ambien 0 No Marcial De 5 mg, 1 Me moria 6-09 [place] tab, l 02:00: Route: PO, [place] 00 Drug form: TAB, Bedtime, Start date: 09/21/11 21:00:00, Duration: 30 day, Stop date: 10/20/11 21:00:00 Ambien CR No Marcial De 6.25 mg, Memoria 6-09 [place] Route: PO, l 02:00: Bedtime, Miguel 00 Start date: 09/21/11 21:00:00, Duration: 30 day, Stop date: 10/20/11 21:00:00 Ambien No Marcial De 5 mg, 1 Me moria 6-09 [place] tab, l 02:00: Route: PO, Miguel 00 Drug form: TAB, Bedtime, Start date: 09/21/11 21:00:00, Duration: 30 day, Stop date: 10/20/11 21:00:00 Ambien CR 0 No Marcial De 6.25 mg, Memoria 6-09 [place] Route: PO, l 02:00: Bedtime, [place] Start date: 09/21/11 21:00:00, Duration: 30 day, Stop date: 10/20/11 21:00:00 Ambien 0 No Marcial De 5 mg, 1 Me moria 6-09 [place] tab, l 02:00: Route: PO, [place] Drug form: TAB, Bedtime, Start date: 09/21/11 21:00:00, Duration: 30 day, Stop date: 10/20/11 21:00:00 Ambien CR 0 No Marcial De 6.25 mg, Memoria 6-09 [place] Route: PO, l 02:00: Bedtime, [place] 00 Start date: 09/21/11 21:00:00, Duration: 30 day, Stop date: 10/20/11 21:00:00 Ambien 2011-0 No Marcial De 5 mg, 1 Me moria 09-21 [place] tab, l 02:00: Route: PO, [place] 00 Drug form: TAB, Bedtime, Start date: 09/21/11 21:00:00, Duration: 30 day, Stop date: 10/20/11 21:00:00 Percocet 0 No Marcial De 1 tab, M emoria 5/325 oral 6-08 [place] Route: PO, l tablet 14:11: Drug Form: Amira nn 00 TAB, BID-10-24, Start date: 09/21/11 9:11:00, Duration: 30 day, Stop date: 10/21/11 7:00:00 Percocet No Marcial De 1 tab, M emoria 5/325 oral 6-08 [place] Route: PO, l tablet 14:11: Drug Form: Amira nn 00 TAB, BID-10-24, Start date: 09/21/11 9:11:00, Duration: 30 day, Stop date: 10/21/11 7:00:00 Percocet 0 No Marcial De 1 tab, M emoria 5/325 oral 6-08 [place] Route: PO, l tablet 14:11: Drug Form: Amira nn 00 TAB, BID-10-24, Start date: 09/21/11 9:11:00, Duration: 30 day, Stop date: 10/21/11 7:00:00 Percocet 0 No Marcial De 1 tab, M emoria 5/325 oral 6-08 [place] Route: PO, l tablet 14:11: Drug Form: Amira nn 00 TAB, BID, Start date: 09/21/11 9:11:00, Duration: 30 day, Stop date: 10/21/11 7:00:00 Plavix 2011-0 No Jeff 75 mg, 1 Memori a 09-14 Jef tab, l 14:00: [place] Route: PO, [...] Jef Route: l 03:49: [place] IVP, Drug [place] 00 Form: INJ, Q8H, PRN Line Flush, Start date: 09/14/11 22:49:00, Duration: 30 day, Stop date: 10/14/11 22:48:00, Administer at least once every 8 hoursAdmin ister at least once every 8 hours Milk of 2011-0 No Jeff 30 mL, Memoria Magnesia -02 Jef Route: PO, l 03:49: [place] Drug Form: Richard n 00 SUSP, Daily, PRN Constipati on, Start date: 09/14/11 22:49:00, Duration: 30 day, Stop date: 10/14/11 22:48:00 bisacodyl 2011-0 No Jeff 10 mg, 1 Mem oria -02 Jef supp, l 03:49: [place] Route: [place], Richard n 00 Drug form: SUPP, Bedtime, PRN Constipati on, Start date: 09/14/11 22:49:00, Duration: 30 day, Stop date: 10/14/11 22:48:00 zolpidem 2011-0 No Marcial De 5 mg, 1 Memoria 6-02 [place] tab, l 03:49: Route: PO, Miguel 00 Drug form: TAB, Bedtime, PRN Insomnia, Start date: 09/14/11 22:49:00, Duration: 30 day, Stop date: 10/14/11 22:48:00 Saline 2011-0 No Jeff 3 mL, Memoria Flush 0.9% 6-02 Jef Route: l 03:49: [place] IVP, Drug Miguel 00 Form: INJ, Q8H, PRN Line Flush, Start date: 09/14/11 22:49:00, Duration: 30 day, Stop date: 10/14/11 22:48:00, Administer at least once every 8 hoursAdmin ister at least once every 8 hours Milk of 2011-0 No Jeff 30 mL, Memoria Magnesia 6-02 Jef Route: PO, l 03:49: [place] Drug Form: Richard n 00 SUSP, Daily, PRN Constipati on, Start date: 09/14/11 22:49:00, Duration: 30 day, Stop date: 10/14/11 22:48:00 bisacodyl 2011-0 No Jeff 10 mg, 1 Mem oria 6-02 Jef supp, l 03:49: [place] Route: [place], Richard n 00 Drug form: SUPP, Bedtime, PRN Constipati on, Start date: 09/14/11 22:49:00, Duration: 30 day, Stop date: 10/14/11 22:48:00 zolpidem 2011-0 No Marcial De 5 mg, 1 Memoria 6-02 [place] tab, l 03:49: Route: PO, Miguel 00 Drug form: TAB, Bedtime, PRN Insomnia, Start date: 09/14/11 22:49:00, Duration: 30 day, Stop date: 10/14/11 22:48:00 Saline 2011-0 No Jeff 3 mL, Memoria Flush 0.9% 6-02 Jef Route: l 03:49: [place] IVP, Drug [place] 00 Form: INJ, Q8H, PRN Line Flush, [...] 6-02 Jef supp, l 03:49: [place] Route: [place], Richard n 00 Drug form: SUPP, Bedtime, [...] of No Jeff 30 mL, Memoria Magnesia -02 Jef Route: PO, l 03:49: [place] Drug Form: Richard n 00 SUSP, Daily, PRN Constipati on, Start date: 09/14/11 22:49:00, Duration: 30 day, Stop date: 10/14/11 22:48:00 bisacodyl 2011-0 No Jeff 10 mg, 1 Mem oria 6-02 Jef supp, l 03:49: [place] Route: [place], Richard n 00 Drug form: SUPP, Bedtime, PRN Constipati on, Start date: 09/14/11 22:49:00, Duration: 30 day, Stop date: 10/14/11 22:48:00 zolpidem 2011-0 No Marcial De 5 mg, 1 Memoria 6-02 [place] tab, l 03:49: Route: PO, [place] 00 Drug form: TAB, Bedtime, PRN Insomnia, [...] tab, l tablet 22:00: [place] Route: POGris 00 Drug form: TAB, BID, Start date: 09/14/11 17:00:00, Duration: 30 day, Stop date: 10/14/11 9:00:00 Colace 100 2011-0 No Jeff 100 mg, 1 M emoria mg oral 6- Jef cap, l capsule 22:00: [place] Route: PO maloney Drug form: CAP, BID, Start date: [...] 6-01 Jef tab, l 22:00: [place] Route: PO, [...] mL, Route: l 20:00: [place] SUB-Q, Miguel Drug form: INJ, Q24H, Start date: 09/14/11 15:00:00, Duration: 30 day, Stop date: 10/13/11 9:00:00 enoxaparin 2012-0 No Jeff 40 mg, 0.4 Memoria 6-01 Jef mL, Route: l 20:00: [place] SUB-Q, [place] 00 Drug form: INJ, Q24H, Start date: 09/14/11 15:00:00, Duration: 30 day, Stop date: 10/13/11 9:00:00 enoxaparin 2011-0 No Jeff 40 mg, 0.4 Memoria 6-01 Jef mL, Route: l 20:00: [place] SUB-Q, [place] 00 Drug form: INJ, Q24H, Start date: 09/14/11 15:00:00, Duration: 30 day, Stop date: 10/13/11 9:00:00 enoxaparin 2011-0 No Jeff 40 mg, 0.4 Memoria 6-01 Jef mL, Route: l 20:00: [place] SUB-Q, [place] 00 Drug form: INJ, Q24H, Start date: 09/14/11 15:00:00, Duration: 30 day, Stop date: 10/13/11 9:00:00 Percocet 2011-0 No Jeff 1 tab, Memori a 5/325 oral 6-01 Jef Route: PO, l tablet 19:58: [place] Drug Form: Herm graham 00 TAB, Q4H, PRN Pain, Start date: 09/14/11 14:58:00, Duration: 30 day, Stop date: 10/14/11 14:57:00 Percocet 0 No Jeff 1 tab, Memori a 5/325 [...] Miguel Respitory Rate 2011-10-01 10:34:00 Memori al [place] Heart Rate 2011-10-01 10:34:00 Memorial [place] Temperature Oral (F) 2011-10-01 10:34:00 97.6 F Memorial [place] Diastolic (mm Hg) 2011-10-01 10:34:00 Mem orial [place] Diastolic (mm Hg) 2011-10-01 00:44:00 Mem orial [place] Respitory Rate 2011-10-01 00:44:00 Memori al [place] Heart Rate 2011-10-01 00:44:00 Memorial [place] Systolic (mm Hg) 2011-10-01 00:44:00 Luan rial Miguel Temperature Oral (F) 2011-10-01 00:44:00 98.1 F Memorial [place] Systolic (mm Hg) 2011-09-30 21:00:00 Luan rial [place] Diastolic (mm Hg) 2011-09-30 21:00:00 Mem orial [place] Heart Rate 2011-09-30 21:00:00 Memorial [place] Respitory Rate 2011-09-30 21:00:00 Memori al [place] Temperature Oral (F) 2011-09-30 10:03:00 97.8 F Memorial [place] Height 2011-09-15 03:49:00 172.72 cm Memorial [place] Weight 2011-09-15 03:49:00 Memorial Miguel Procedures This patient has no known procedures. Encounters Start End Encounter Admission Attending Care Care Encounter Source Date/Time Date/Time Type Type Clinicians Facility Department ID 2011-09-14 2011-10-01 MYRON BAKER [id number] Memoria 22:16:00 13:00:00 50 l Miguel 2011-09-14 2011-10-01 MYRON BAKER [id number] Memoria 22:16:00 13:00:00 52 l [place] Results Test Description Test Time Test Comments Results Result Comments Source B-TYPE NATRIURETIC FACTOR (BNP) 2016-12-21 05:56:00 Test Item Value Reference Range Interpretation Comme nts B-TYPE NATRIURETIC PEPTIDE (BEAKER) (test code = 700) 136 pg/mL 0-100 H COMPREHENSIVE METABOLIC [id number] 05:53:00 Test Item Value Reference Range Interpretation [...] NOT APPLICABLE FOR DIALYSIS PATIEN TS. POCT-GLUCOSE [id number] 16:33:00 Test Item Value Reference Range Interpretation Comments POC-GLUCOSE METER 116 mg/dL 70-110 H TESTED AT [facility] (test code = TISHA ARCE 1538) [id number] POCT-GLUCOSE [id number] 11:08:00 Test Item Value Reference Range Interpretation Comments POC-GLUCOSE METER 133 mg/dL 70-110 H TESTED AT [facility] 67[address] ([facility]) (test code = ANTHONYFL Sage [facility] 1538) [id number] POCT-GLUCOSE [id number] 06:11:00 Test Item Value Reference Range Interpretation Comments POC-GLUCOSE METER 105 mg/dL 70-110 TESTED AT [place] [address] ([facility]) (test code = TISHA Cazares [facility] 1538) [id number] POCT-GLUCOSE [id number] 20:28:00 Test Item Value Reference Range Interpretation Comments POC-GLUCOSE METER 124 mg/dL 70-110 H TESTED AT [place] [address] ([facility]) (test code = [facility] Sage [facility] 1538) [id number] POCT-GLUCOSE [id number] 16:46:00 Test Item Value Reference Range Interpretation Comments POC-GLUCOSE METER 113 mg/dL 70-110 H TESTED AT [place] [address] ([facility]) (test code = [facility] Sage [facility] 1538) [id number] POCT-GLUCOSE [id number] 11:46:00 Test Item Value Reference Range Interpretation Comments POC-GLUCOSE METER 113 mg/dL 70-110 H TESTED AT [place] [address] ([facility]) (test code = [facility] 1538) [id number] URINE [id number] 09:54:00 Test Item Value Reference Range Interpretation Comments CULTURE ([facility]) (test KLEBSIELLA A >100, [...] S Sulfamethoxazole (test code = 47) POCT-GLUCOSE [id number] 06:46:00 Test Item Value Reference Range Interpretation Comments POC-GLUCOSE METER 111 mg/dL 70-110 H TESTED AT [place] [address] (BEAKER) (test code = TISHA Cazares [place] 1538) [id number] POCT-GLUCOSE [id number] 20:48:00 Test Item Value Reference Range Interpretation Comments POC-GLUCOSE METER 128 mg/dL 70-110 H TESTED AT [place] [address] (BEAKER) (test code = TISHA Cazares [facility] 1538) [id number] POCT-GLUCOSE [id number] 16:00:00 Test Item Value Reference Range Interpretation Comments POC-GLUCOSE METER 127 mg/dL 70-110 H TESTED AT [place] [address] (BEAKER) (test code = TISHA Cazares [facility] 1538) [id number] POCT-GLUCOSE [id number] 11:16:00 Test Item Value Reference Range Interpretation Comments POC-GLUCOSE METER 273 mg/dL 70-110 H TESTED AT [place] [address] (BEAKER) (test code = TISHA Cazares [facility] 1538) [id number] COMPREHENSIVE METABOLIC [id number] 06:44:00 Test Item Value Reference Range Interpretation [...] I S NOT APPLICABLE FOR DIALYSIS PATIEN [id number] 06:27:00 Test Item Value Reference Range Interpretation Comments PARTIAL THROMBOPLASTIN TIME 38.5 seconds 22.5-36.0 H (BEAKER) (test code = 760) PROTHROMBIN [id number] 06:26:00 Test Item Value Reference Range Interpretation [...] mechanical heart valves.CBC W/PLT COUNT & AUTO [id number] 06:25:00 Test Item Value Reference Range Interpretation [...] PERCENT (BEAKER) (test code = 2801) POCT-GLUCOSE [id number] 06:22:00 Test Item Value Reference Range Interpretation Comments POC-GLUCOSE METER 131 mg/dL 70-110 H TESTED AT [facility] 6720 (BEAKER) (test code = TISHA HINES [place] 1538) [id number] URINALYSIS W/ [id number] 20:35:00 Test Item Value Reference Range Interpretation [...] code Urine, Clean Catch = 2795) POCT-GLUCOSE [id number] 20:21:00 Test Item Value Reference Range Interpretation Comments POC-GLUCOSE METER 132 mg/dL 70-110 H TEST[facility] AT [place] [address] [facility] (test code = TISHA Cazares [facility] 1538) [id number] POCT-GLUCOSE [id number] 16:17:00 Test Item Value Reference Range Interpretation Comments POC-GLUCOSE METER 101 mg/dL 70-110 TESTED AT [place] [address] ([facility] (test code = [facility] Sage [facility] 1538) [id number] POCT-GLUCOSE [id number] 13:35:00 Test Item Value Reference Range Interpretation Comments POC-GLUCOSE METER 143 mg/dL 70-110 H TESTED AT [place] [address] ([facility]) ([facility] 1538) [address] BASIC METABOLIC [id number] 06:31:00 Test Item Value Reference Range Interpretation [...] APPLICABLE FOR DIALYSIS PATIEN TS. BASIC METABOLIC [id number] 05:41:00 Test Item Value Reference Range Interpretation [...] 0-0 (BEAKER) (test code = 413) VITAMIN [id number] 06:04:00 Test Item Value Reference Range Interpretation Comments VITAMIN B12 (BEAKER) (test code = 619 pg/mL 213-816 774) [id number] 06:04:00 Test Item Value Reference Range Interpretation Comments FERRITIN (BEAKER) (test code = 361) 335 ng/mL 5-275 H Effective 03/02/2014: Reference Range ChangeNew: Male 5-275 Previous: Male 22- 322 Female 5-275 Female 10-291FOLATE, [id number] 06:04:00 Test Item Value Reference Range Interpretation Comments FOLATE (BEAKER) (test code = 362) 4.9 ng/mL >=7.0 L Effective 03/02/2014: Folate Reference Range ChangeNew: >=7.0 Previous: >=5.4BASIC METABOLIC [id number] 05:47:00 Test Item Value Reference Range Interpretation [...] (BEAKER) (test code = 413) BASIC METABOLIC [id number] 05:53:00 Test Item Value Reference Range Interpretation [...] WBC 0-0 (BEAKER) (test code = 413) [id number] 22:53:00 Test Item Value Reference Range Interpretation Comments ACTIVATED CLOTTING TIME 153 sec TEST ED AT [place] [address] ([facility]) (test code = TISHA Cazares [place] 441) [id number] 22:35:00 Test Item Value Reference Range Interpretation Comments ACTIVATED CLOTTING TIME 202 sec TEST ED AT [place] [address] ([facility]) (test code = TISHA Cazraes [place] 441) [id number] 22:04:00 Test Item Value Reference Range Interpretation [...] (BEAKER) (test code = 413) BASIC METABOLIC [id number] 08:43:00 Test Item Value Reference Range Interpretation [...] (BEAKER) (test code = 413) BASIC METABOLIC [id number] 06:44:00 Test Item Value Reference Range Interpretation [...] PATIEN TS. CBC W/PLT COUNT & AUTO [id number] 21:33:00 Test Item Value Reference Range Interpretation [...] 0-1 PERCENT (BEAKER) (test code = 2801) [id number] 07:21:00 Test Item Value Reference Range Interpretation Comments PHOSPHORUS (BEAKER) (test code = 3.6 mg/dL 2.3-4.7 604) [id number] 07:21:00 Test Item Value Reference Range Interpretation Comments MAGNESIUM (BEAKER) (test code = 1.9 mg/dL 1.6-2.6 627) COMPREHENSIVE METABOLIC [id number] 07:21:00 Test Item Value Reference Range Interpretation [...] code = 413) PHENYTOIN LEVEL, TOTAL AND [id number] 01:14:00 Test Item Value Reference Range Interpretation Comments PHENYTOIN (DILANTIN) (BEAKER) 22.9 ug/mL 10.0-20.0 H (test code = 605) PHENYTOIN FREE (BEAKER) (test 3.51 mcg/ml 1.00-2.00 H code = 847) VALPROIC ACID LEVEL, [id number] 20:49:00 Test Item Value Reference Range Interpretation Comments VALPROIC ACID TOTAL (BEAKER) (test 33 ug/mL 50-100 L code = 924) Therapeutic range for some clinical conditions may be >100 ug/mLPOCT-GLUCOSE [id number] 17:10:00 Test Item Value Reference Range Interpretation Comments POC-GLUCOSE METER 108 mg/dL 70-110 TESTED AT [facility] 6720 (BEAKER) (test code = TISHA HINES [place] 1538) [id number] PHENYTOIN LEVEL, [id number] 12:29:00 Test Item Value Reference Range Interpretation Comments PHENYTOIN (DILANTIN) (BEAKER) 16.3 ug/mL 10.0-20.0 (test code = 605) CREATINE KINASE (CK), TOTAL AND [id number] 12:26:00 Test Item Value Reference Range Interpretation Comments CREATINE KINASE TOTAL (BEAKER) 47 U/L 29-200 (test code = 380) CREATINE KINASE-MB (BEAKER) (test 1.1 ng/mL 0.0-6.6 code = 750) CREATINE KINASE-MB INDEX (BEAKER) 2.3 % (test code = 395) Effective 03/02/2014: CK-MB Reference Range ChangeNew: 0.0-6.6 Previous: 0.0-4.9CK-MB Reference Range:<6.7 Normal6.7-10.0 Borderline>10.0 Abnormal TROPONIN [id number] 12:26:00 Test Item Value Reference Range Interpretation [...] failure, acidosis, acute neurological disease, and persistent tachyarrhythmia.[id number] 12:17:00 Test Item Value Reference Range Interpretation Comments MAGNESIUM (BEAKER) (test code = 2.0 mg/dL 1.6-2.6 627) COMPREHENSIVE METABOLIC [id number] 12:17:00 Test Item Value Reference Range Interpretation [...] PATIEN TS. CBC W/PLT COUNT & AUTO [id number] 11:55:00 Test Item Value Reference Range Interpretation [...] PERCENT (BEAKER) (test code = 2801) URINE [id number] 11:55:00 Test Item Value Reference Range Interpretation Comments CULTURE (BEAKER) (test code = 1095) No growth BLOOD GAS, [id number] 10:28:00 Test Item Value Reference Range Interpretation [...] (test code = 1819) 32.0 % POCT-GLUCOSE [id number] 09:53:00 Test Item Value Reference Range Interpretation Comments POC-GLUCOSE METER 184 mg/dL 70-110 H TESTED AT [facility] 67 (BEAKER) (test code = TISHA HINES [place] 1538) [id number] TROPONIN [id number] 22:44:00 Test Item Value Reference Range Interpretation [...] acidosis, acute neurological disease, and persistent tachyarrhythmia.TROPONIN [id number] 15:17:00 Test Item Value Reference Range Interpretation [...] MORPHOLOGY (BEAKER) (test code = Normal 762) [id number] 07:06:00 Test Item Value Reference Range Interpretation Comments PHOSPHORUS (BEAKER) (test code = 2.5 mg/dL 2.3-4.7 604) [id number] 07:06:00 Test Item Value Reference Range Interpretation Comments MAGNESIUM (BEAKER) (test code = 2.0 mg/dL 1.6-2.6 627) COMPREHENSIVE METABOLIC [id number] 07:06:00 Test Item Value Reference Range Interpretation [...] NOT APPLICABLE FOR DIALYSIS PATIEN TS. PROTHROMBIN [id number] 06:40:00 Test Item Value Reference Range Interpretation Comments PROTIME (BEAKER) (test code = 12.5 seconds 11.7-14.7 759) INR (BEAKER) (test code = 370) 1.0 <=5.9 RECOMMENDED COUMADIN/WARFARIN INR THERAPY RANGESSTANDARD DOSE: 2.0 - 3.0 Includes: PROPHYLAXIS for venous thrombosis, systemic embolization; TREATMENT for venous thrombosis and/or pulmonary embolus.HIGH RISK: Target INR is 2.5-3.5 for patients with mechanical heart valves.URINALYSIS W/ [id number] 06:18:00 Test Item Value Reference Range Interpretation [...] 516) SOURCE(BEAKER) (test code = Urine, Voided 4459) COMPREHENSIVE METABOLIC [id number] 05:47:00 Test Item Value Reference Range Interpretation [...] (BEAKER) (test code = 413) COMPREHENSIVE METABOLIC [id number] 10:08:00 Test Item Value Reference Range Interpretation [...] 0-0 (BEAKER) (test code = 413) POCT-GLUCOSE [id number] 12:08:00 Test Item Value Reference Range Interpretation Comments POC-GLUCOSE METER 111 mg/dL 70-110 H TESTED AT [facility] 6720 (BEAKER) (test code = T[place] 1538) [address] POCT-GLUCOSE [id number] 08:40:00 Test Item Value Reference Range Interpretation Comments POC-GLUCOSE METER 184 mg/dL 70-110 H TESTED AT [facility] 6720 (BEAKER) (test code = T[place] 1538) [address] [id number] 05:57:00 Test Item Value Reference Range Interpretation Comments MAGNESIUM (BEAKER) (test code = 2.1 mg/dL 1.6-2.6 627) BASIC METABOLIC [id number] 05:57:00 Test Item Value Reference Range Interpretation [...] % 40.1-51.0 L 411) MEAN CORPUSCULAR VOLUME ([facility]) 92.2 fL 79.0-92.2 (test code = 753) MEAN CORPUSCULAR HEMOGLOBIN 32.1 pg 25.7-32.2 ([facility]) (test code = 751) MEAN CORPUSCULAR HEMOGLOBIN CONC 34.8 GM/DL 32.3-36.5 ([facility]) (test code = 752) RED CELL DISTRIBUTION WIDTH 15.0 % 11.6-14.4 H ([facility]) (test code = 412) PLATELET COUNT ([facility]) (test 226 K/CU MM 150-450 code = 756) MEAN PLATELET VOLUME ([facility]) 10.7 fL 9.4-12.4 (test code = 754) NUCLEATED RED BLOOD CELLS 0 /100 WBC 0-0 ([facility]) (test code = 413) POCT-GLUCOSE [id number] 21:18:00 Test Item Value Reference Range Interpretation Comments POC-GLUCOSE METER 118 mg/dL 70-110 H TESTED AT [place] [address] ([facility]) (test code = [facility] 1538) [address] POCT-GLUCOSE [id number] 17:33:00 Test Item Value Reference Range Interpretation Comments POC-GLUCOSE METER 102 mg/dL 70-110 TESTED AT [place] [address] ([facility]) (test code = [facility] 1538) [address] POCT-GLUCOSE [id number] 12:06:00 Test Item Value Reference Range Interpretation Comments POC-GLUCOSE METER 188 mg/dL 70-110 H TESTED AT [place] [address] ([facility]) (test code = [facility] 1538) [address] POCT-GLUCOSE [id number] 08:31:00 Test Item Value Reference Range Interpretation Comments POC-GLUCOSE METER 109 mg/dL 70-110 TESTED AT [place] [address] ([facility]) (test code = [facility] 1538) [address] [id number] 06:07:00 Test Item Value Reference Range Interpretation Comments MAGNESIUM ([facility]) (test code = 2.0 mg/dL 1.6-2.6 627) BASIC METABOLIC [id number] 06:07:00 Test Item Value Reference Range Interpretation [...] S NOT APPLICABLE FOR DIALYSIS PATIEN TS. [id number] 05:40:00 Test Item Value Reference Range Interpretation [...] RED BLOOD CELLS 0 /100 WBC 0-0 (AKER) (test code = 413) POCT-GLUCOSE [id number] 21:01:00 Test Item Value Reference Range Interpretation Comments POC-GLUCOSE METER 118 mg/dL 70-110 H TESTED AT [place] [address] ([facility]) (test code = TISHA Cazares [facility] 1538) [address] POCT-GLUCOSE [id number] 18:51:00 Test Item Value Reference Range Interpretation Comments POC-GLUCOSE METER 117 mg/dL 70-110 H TESTED AT [place] [address] ([facility]) (test code = TISHA Cazares [facility] 1538) [address] POCT-GLUCOSE [id number] 14:02:00 Test Item Value Reference Range Interpretation Comments POC-GLUCOSE METER 129 mg/dL 70-110 H TESTED AT [place] [address] ([facility]) (test code = TISHA Cazares [facility] 1538) [address] [id number] 04:19:00 Test Item Value Reference Range Interpretation Comments MAGNESIUM (BEAKER) (test code = 1.8 mg/dL 1.6-2.6 627) BASIC METABOLIC [id number] 04:19:00 Test Item Value Reference Range Interpretation [...] S NOT APPLICABLE FOR DIALYSIS PATIEN TS. [id number] 04:13:00 Test Item Value Reference Range Interpretation [...] heart valves.Prior to initiating heparinPrior to initiating [id number] 04:13:00 Test Item Value Reference Range Interpretation Comments PARTIAL THROMBOPLASTIN TIME 42.4 seconds 22.5-36.0 H (BEAKER) (test code = 760) LACTIC ACID, ARTERIAL, WHOLE [id number] 04:09:00 Test Item Value Reference Range Interpretation [...] 0-0 (BEAKER) (test code = 413) CALCIUM, [id number] 03:54:00 Test Item Value Reference Range Interpretation Comments CALCIUM IONIZED (BEAKER) (test 1.14 mmol/L 1.12-1.27 code = 698) PH, BLOOD (BEAKER) (test code = 7.49 1810) BLOOD GAS, [id number] 03:54:00 Test Item Value Reference Range Interpretation [...] (test code = 1819) 36.0 % POCT-GLUCOSE [id number] 17:32:00 Test Item Value Reference Range Interpretation Comments POC-GLUCOSE METER 121 mg/dL 70-110 H TESTED AT [place] [address] ([facility]) (test code = TISHA Cazares [place] 1538) [address] PLATELET AGGREGATION: FUNCTION [id number] 14:46:00 Test Item Value Reference Range Interpretation Comments WEAK ADP 82 % 60-91 RESULT([facility]) (test code = 2135) PLATELET FUNCTION 60-100% indicates SCREEN INTERP ([facility]) normal platelet (test code = 2173) function [id number] Mari Phelan MD ([facility]) (test code = (electronic signature) 3287) PLATELET COUNT AGG 221 K/CU MM 150-450 ([facility]) (test code = 2656) POCT-GLUCOSE [id number] 12:58:00 Test Item Value Reference Range Interpretation Comments POC-GLUCOSE METER 129 mg/dL 70-110 H TESTED AT [place] [address] ([facility]) (test code = TISHA Cazares [place] 1538) [address] HEMOGLOBIN [id number] 09:09:00 Test Item Value Reference Range Interpretation Comments HEMOGLOBIN A1C (AKER) (test code = 5.1 % 4.3-6.1 368) BLOOD GAS, [id number] 06:57:00 Test Item Value Reference Range Interpretation [...] (test code = 1819) 40.0 % POCT-GLUCOSE [id number] 06:01:00 Test Item Value Reference Range Interpretation Comments POC-GLUCOSE METER 154 mg/dL 70-110 H TESTED AT [facility] 6720 (BEAKER) (test code = T[place] 1538) [address] [id number] 05:02:00 Test Item Value Reference Range Interpretation Comments MAGNESIUM (BEAKER) (test code = 2.0 mg/dL 1.6-2.6 627) BASIC METABOLIC [id number] 05:02:00 Test Item Value Reference Range Interpretation [...] S NOT APPLICABLE FOR DIALYSIS PATIEN TS. [id number] 04:56:00 Test Item Value Reference Range Interpretation [...] mechanical heart valves.CBC W/PLT COUNT & AUTO [id number] 04:54:00 Test Item Value Reference Range Interpretation [...] code = 2801) LACTIC ACID, ARTERIAL, WHOLE [id number] 04:39:00 Test Item Value Reference Range Interpretation Comments LACTATE BLOOD ARTERIAL (2) 1.2 mmol/L 0.5-2.2 (BEAKER) (test code = 2874) Effective 08/17/2015: Units/Reference Range ChangeNew: 0.5-2.2 mmol/L Previous: 5- 20 mg/dLCALCIUM, [id number] 04:11:00 Test Item Value Reference Range Interpretation Comments CALCIUM IONIZED (BEAKER) (test 1.17 mmol/L 1.12-1.27 code = 698) PH, BLOOD (BEAKER) (test code = 7.44 1810) BLOOD GAS, [id number] 04:11:00 Test Item Value Reference Range Interpretation [...] code = 1819) 40.0 % OXYGEN SATURATION, [id number] 04:09:00 Test Item Value Reference Range Interpretation Comments O2 SATURATION (MEASURED) (BEAKER) 80.7 % (test code = 1455) POCT-GLUCOSE [id number] 02:46:00 Test Item Value Reference Range Interpretation Comments POC-GLUCOSE METER 150 mg/dL 70-110 H TESTED AT [facility] 6720 ([facility]) (test code = T[place] 1538) [address] POCT-GLUCOSE [id number] 18:29:00 Test Item Value Reference Range Interpretation Comments POC-GLUCOSE METER 111 mg/dL 70-110 H TESTED AT [facility] 6720 [facility] (test code = T[place] 1538) [address] [id number] 16:27:00 Test Item Value Reference Range Interpretation Comments POTASSIUM (BEAKER) (test code = 4.2 meq/L 3.5-5.1 379) [id number] 16:27:00 Test Item Value Reference Range Interpretation Comments MAGNESIUM (BEAKER) (test code = 2.1 mg/dL 1.6-2.6 627) [id number] 16:27:00 Test Item Value Reference Range Interpretation Comments SODIUM (BEAKER) (test code = 381) 141 meq/L 136-145 BASIC METABOLIC [id number] 16:27:00 Test Item Value Reference Range Interpretation [...] DIALYSIS PATIEN TS. LACTIC ACID, ARTERIAL, WHOLE [id number] 16:23:00 Test Item Value Reference Range Interpretation Comments LACTATE BLOOD 1.8 mmol/L 0.5-2.2 Specimen sligh tly ARTERIAL (2) (BEAKER) hemoly zed (test code = 2874) Effective 08/17/2015: Units/Reference Range ChangeNew: 0.5-2.2 mmol/L Previous: 5- 20 mg/dLPT/[id number] 16:18:00 Test Item Value Reference Range Interpretation [...] for patients with mechanical heart valves.HEMOGLOBIN AND [id number] 16:10:00 Test Item Value Reference Range Interpretation [...] (BEAKER) (test code = 413) BLOOD GAS, [id number] 16:03:00 Test Item Value Reference Range Interpretation [...] (test code = 1819) 60.0 % CALCIUM, [id number] 16:03:00 Test Item Value Reference Range Interpretation Comments CALCIUM IONIZED (BEAKER) (test 1.18 mmol/L 1.12-1.27 code = 698) PH, BLOOD (BEAKER) (test code = 7.36 1810) OXYGEN SATURATION, [id number] 16:02:00 Test Item Value Reference Range Interpretation Comments O2 SATURATION (MEASURED) (BEAKER) 82.9 % (test code = 1455) [id number] 15:26:00 Test Item Value Reference Range Interpretation Comments ACTIVATED CLOTTING TIME 120 sec TEST ED AT [place] [address] ([facility]) (test code = [place] [address]) [address] [id number] 15:26:00 Test Item Value Reference Range Interpretation Comments ACTIVATED CLOTTING TIME 802 sec TEST ED AT [place] [address] ([facility]) (test code = T[place] 441) [address] [id number] 15:26:00 Test Item Value Reference Range Interpretation Comments ACTIVATED CLOTTING TIME 884 sec TEST ED AT [place] [address] ([facility]) (test code = T[place]HA Caz[place] 441) [address] [id number] 15:26:00 Test Item Value Reference Range Interpretation Comments ACTIVATED CLOTTING TIME 621 sec TEST ED AT [place] [address] ([facility]) (test code = T[place] 441) [address] THROMBOELASTOGRAPH (TEG)[id number] 14:00:00 Test Item Value Reference [...] MM 55.0-65.0 H (test code = 1413) [id number] 13:28:00 Test Item Value Reference Range Interpretation Comments FIBRINOGEN LEVEL (BEAKER) (test 458 mg/dl 225-434 H code = 658) [id number] 13:28:00 Test Item Value Reference Range Interpretation Comments PARTIAL THROMBOPLASTIN TIME 39.7 seconds 22.5-36.0 H (BEAKER) (test code = 760) PROTHROMBIN [id number] 13:27:00 Test Item Value Reference Range Interpretation Comments PROTIME (BEAKER) (test code = 17.4 seconds 11.7-14.7 H 759) INR (BEAKER) (test code = 370) 1.4 <=5.9 RECOMMENDED COUMADIN/WARFARIN INR THERAPY RANGESSTANDARD DOSE: 2.0 - 3.0 Includes: PROPHYLAXIS for venous thrombosis, systemic embolization; TREATMENT for venous thrombosis and/or pulmonary embolus.HIGH RISK: Target INR is 2.5-3.5 for patients with mechanical heart valves.PLATELET [id number] 13:21:00 Test Item Value Reference Range Interpretation Comments PLATELET COUNT 151 K/CU MM 150-450 Discordant re sult (BEAKER) (test code compared to previous = 756) result; clinica l correlation req uired. CALCIUM, [id number] 13:06:00 Test Item Value Reference Range Interpretation Comments CALCIUM IONIZED (BEAKER) (test 1.07 mmol/L 1.12-1.27 L code = 698) PH, BLOOD (BEAKER) (test code = 7.31 1810) SODIUM NA-STAT [id number] 13:05:00 Test Item Value Reference Range Interpretation Comments SODIUM (BEAKER) (test code = 381) 135 meq/L 135-148 POTASSIUM-STAT [id number] 13:05:00 Test Item Value Reference Range Interpretation Comments POTASSIUM (BEAKER) (test code = 4.4 meq/L 3.6-5.5 379) BLOOD GAS, [id number] 13:05:00 Test Item Value Reference Range Interpretation [...] (test code = 1819) 67.0 % GLUCOSE-STAT [id number] 13:05:00 Test Item Value Reference Range Interpretation Comments GLUCOSE RANDOM (BEAKER) (test code 145 mg/dL 70-110 H = 652) HGB/HCT (H&H) - STAT [id number] 13:05:00 Test Item Value Reference Range Interpretation Comments HEMOGLOBIN (BEAKER) (test code = 10.2 g/dL 13.0-16.8 L 410) HEMATOCRIT (BEAKER) (test code = 30.0 % 40.0-50.0 L 411) BLOOD GAS, [id number] 12:26:00 Test Item Value Reference Range Interpretation [...] (test code = 1819) 65.0 % GLUCOSE-STAT [id number] 12:26:00 Test Item Value Reference Range Interpretation Comments GLUCOSE RANDOM (BEAKER) (test code 132 mg/dL 70-110 H = 652) HGB/HCT (H&H) - STAT [id number] 12:26:00 Test Item Value Reference Range Interpretation Comments HEMOGLOBIN (BEAKER) (test code = 10.6 g/dL 13.0-16.8 L 410) HEMATOCRIT (BEAKER) (test code = 31.0 % 40.0-50.0 L 411) SODIUM NA-STAT [id number] 12:25:00 Test Item Value Reference Range Interpretation Comments SODIUM (BEAKER) (test code = 381) 136 meq/L 135-148 POTASSIUM-STAT [id number] 12:25:00 Test Item Value Reference Range Interpretation Comments POTASSIUM (BEAKER) (test code = 4.4 meq/L 3.6-5.5 379) BLOOD GAS, [id number] 12:03:00 Test Item Value Reference Range Interpretation [...] (test code = 1819) 65.0 % POTASSIUM-STAT [id number] 12:00:00 Test Item Value Reference Range Interpretation Comments POTASSIUM (BEAKER) (test code = 4.7 meq/L 3.6-5.5 379) BLOOD GAS, [id number] 12:00:00 Test Item Value Reference Range Interpretation [...] (test code = 1819) 65.0 % GLUCOSE-STAT [id number] 12:00:00 Test Item Value Reference Range Interpretation Comments GLUCOSE RANDOM (BEAKER) (test code 140 mg/dL 70-110 H = 652) HGB/HCT (H&H) - STAT [id number] 12:00:00 Test Item Value Reference Range Interpretation Comments HEMOGLOBIN (BEAKER) (test code = 10.4 g/dL 13.0-16.8 L 410) HEMATOCRIT (BEAKER) (test code = 31.0 % 40.0-50.0 L 411) SODIUM NA-STAT [id number] 12:00:00 Test Item Value Reference Range Interpretation Comments SODIUM (BEAKER) (test code = 381) 131 meq/L 135-148 L PLATELET AGGREGATION: FUNCTION [id number] 11:08:00 Test Item Value Reference Range Interpretation Comments WEAK ADP 76 % 60-91 RESULT(BEAKER) (test code = 2135) PLATELET FUNCTION 60-100% indicates SCREEN INTERP (BEAKER) normal platelet (test code = 2173) function [id number] Mari Phelan MD (BEAKER) (test code = (electronic signature) 2842) PLATELET COUNT AGG 222 K/CU MM 150-450 (BEAKER) (test code = 2656) for patients on clopidogrel in past two weeksHEMOGLOBIN [id number] 08:57:00 Test Item Value Reference Range Interpretation Comments HEMOGLOBIN A1C (BEAKER) (test code = 5.0 % 4.3-6.1 368) CBC W/PLT COUNT & AUTO [id number] 05:54:00 Test Item Value Reference Range Interpretation [...] 0-1 PERCENT (BEAKER) (test code = 2801) [id number] 05:37:00 Test Item Value Reference Range Interpretation Comments PARTIAL THROMBOPLASTIN TIME 56.5 seconds 22.5-36.0 H (BEAKER) (test code = 760) BASIC METABOLIC [id number] 05:33:00 Test Item Value Reference Range Interpretation [...] NOT APPLICABLE FOR DIALYSIS PATIEN TS. PROTHROMBIN [id number] 05:33:00 Test Item Value Reference Range Interpretation Comments PROTIME (BEAKER) (test code = 13.3 seconds 11.7-14.7 759) INR (BEAKER) (test code = 370) 1.0 <=5.9 RECOMMENDED COUMADIN/WARFARIN INR THERAPY RANGESSTANDARD DOSE: 2.0 - 3.0 Includes: PROPHYLAXIS for venous thrombosis, systemic embolization; TREATMENT for venous thrombosis and/or pulmonary embolus.HIGH RISK: Target INR is 2.5-3.5 for patients with mechanical heart valves.[id number] 19:22:00 Test Item Value Reference Range Interpretation Comments PARTIAL THROMBOPLASTIN TIME 37.4 seconds 22.5-36.0 H (BEAKER) (test code = 760) PROTHROMBIN [id number] 19:21:00 Test Item Value Reference Range Interpretation Comments PROTIME (BEAKER) (test code = 12.8 seconds 11.7-14.7 759) INR (BEAKER) (test code = 370) 1.0 <=5.9 RECOMMENDED COUMADIN/WARFARIN INR THERAPY RANGESSTANDARD DOSE: 2.0 - 3.0 Includes: PROPHYLAXIS for venous thrombosis, systemic embolization; TREATMENT for venous thrombosis and/or pulmonary embolus.HIGH RISK: Target INR is 2.5-3.5 for patients with mechanical heart valves.[id number] 11:49:00 Test Item Value Reference Range Interpretation Comments PARTIAL THROMBOPLASTIN TIME 34.7 seconds 22.5-36.0 (BEAKER) (test code = 760) Prior to initiating heparinPLATELET [id number] 11:31:00 Test Item Value Reference Range Interpretation Comments PLATELET COUNT (BEAKER) (test 199 K/CU MM 150-450 code = 756) PLATELET AGGREGATION: FUNCTION [id number] 11:12:00 Test Item Value Reference Range Interpretation Comments WEAK ADP 90 % 60-91 RESULT(BEAKER) (test code = 2135) PLATELET FUNCTION 60-100% indicates SCREEN INTERP (BEAKER) normal platelet (test code = 2173) function [id number] Mari Phelan MD (BEAKER) (test code = (electronic signature) 1712) PLATELET COUNT AGG 200 K/CU MM 150-450 (BEAKER) (test code = 2656) HEMOGLOBIN [id number] 08:38:00 Test Item Value Reference Range Interpretation Comments HEMOGLOBIN A1C (BEAKER) (test code = 5.5 % 4.3-6.1 368) TROPONIN [id number] 08:35:00 Test Item Value Reference Range Interpretation [...] Reference Range Interpretation Comments CREATINE KINASE TOTAL ([facility]) 39 U/L 29-200 (test code = 380) CREATINE KINASE-MB (AKER) (test 1.6 ng/mL 0.0-6.6 code = 750) CREATINE KINASE-MB INDEX ([facility]) 4.1 % (test code = 395) Effective 03/02/2014: CK-MB Reference Range ChangeNew: 0.0-6.6 Previous: 0.0-4.9CK-MB Reference Range:<6.7 Normal6.7-10.0 Borderline>10.0 Abnormal POCT-GLUCOSE [id number] 08:23:00 Test Item Value Reference Range Interpretation Comments POC-GLUCOSE METER 104 mg/dL 70-110 TESTED AT [facility] 6720 ([facility]) (test code = T[place] 1538) [address] PROTHROMBIN [id number] 04:32:00 Test Item Value Reference Range Interpretation Comments PROTIME (BEAKER) (test code = 13.5 seconds 11.7-14.7 759) INR (BEAKER) (test code = 370) 1.0 <=5.9 RECOMMENDED COUMADIN/WARFARIN INR THERAPY RANGESSTANDARD DOSE: 2.0 - 3.0 Includes: PROPHYLAXIS for venous thrombosis, systemic embolization; TREATMENT for venous thrombosis and/or pulmonary embolus.HIGH RISK: Target INR is 2.5-3.5 for patients with mechanical heart valves.[id number] 02:13:00 Test Item Value Reference Range Interpretation Comments PHOSPHORUS (BEAKER) (test code = 3.9 mg/dL 2.3-4.7 604) [id number] 02:13:00 Test Item Value Reference Range Interpretation Comments MAGNESIUM (BEAKER) (test code = 2.1 mg/dL 1.6-2.6 627) BASIC METABOLIC [id number] 02:13:00 Test Item Value Reference Range Interpretation [...] PATIEN TS. CBC W/PLT COUNT & AUTO [id number] 01:44:00 Test Item Value Reference Range Interpretation [...] 0-1 PERCENT (BEAKER) (test code = 2801) [id number] 01:31:00 Test Item Value Reference Range Interpretation [...] 2.5-3.5 for patients with mechanical heart valves.TROPONIN [id number] 00:46:00 Test Item Value Reference Range Interpretation [...] Previous: 0.0-4.9CK-MB Reference Range:<6.7 Normal6.7-10.0 Borderline>10.0 Abnormal [id number] 06:58:00 Test Item Value Reference Range Interpretation Comments PHOSPHORUS (BEAKER) (test code = 3.7 mg/dL 2.3-4.7 604) [id number] 06:58:00 Test Item Value Reference Range Interpretation Comments MAGNESIUM (BEAKER) (test code = 1.9 mg/dL 1.6-2.6 627) BASIC METABOLIC [id number] 06:58:00 Test Item Value Reference Range Interpretation [...] S NOT APPLICABLE FOR DIALYSIS PATIEN TS. [id number] 06:36:00 Test Item Value Reference Range Interpretation Comments PHOSPHORUS (BEAKER) (test code = 4.1 mg/dL 2.3-4.7 604) [id number] 06:36:00 Test Item Value Reference Range Interpretation Comments MAGNESIUM (BEAKER) (test code = 2.0 mg/dL 1.6-2.6 627) BASIC METABOLIC [id number] 06:36:00 Test Item Value Reference Range Interpretation [...] S NOT APPLICABLE FOR DIALYSIS PATIEN TS. [id number] 15:50:00 Test Item Value Reference Range Interpretation Comments RPR SCREEN (BEAKER) (test code = Nonreactive Nonreactive 420) HEMOGLOBIN [id number] 10:29:00 Test Item Value Reference Range Interpretation Comments HEMOGLOBIN A1C (BEAKER) (test code = 5.4 % 4.3-6.1 368) VITAMIN B12 AND [id number] 09:21:00 Test Item Value Reference Range Interpretation Comments VITAMIN B12 (BEAKER) (test code = 335 pg/mL 213-816 774) FOLATE (BEAKER) (test code = 362) 36.6 ng/mL >=7.0 Effective 03/02/2014: Folate Reference Range ChangeNew: >=7.0 Previous: >=5.4CBC W/PLT COUNT & AUTO [id number] 08:15:00 Test Item Value Reference Range Interpretation [...] (test code = 417) 0.00TSH/FREE T4 IF [id number] 08:00:00 Test Item Value Reference Range Interpretation Comments THYROID STIMULATING HORMONE 1.39 uIU/mL 0.35-4.94 (BEAKER) (test code = 772) BASIC METABOLIC [id number] 07:26:00 Test Item Value Reference Range Interpretation [...] TO CALCU LATE m ESTIMATED GFR. LIPID [id number] 07:26:00 Test Item Value Reference Range Interpretation [...] (test code = 3.8 mg/dL 2.3-4.7 604) [id number] 07:25:00 Test Item Value Reference Range Interpretation Comments MAGNESIUM (BEAKER) (test code = 2.0 mg/dL 1.6-2.6 627) URINALYSIS W/ [id number] 19:16:00 Test Item Value Reference Range Interpretation [...] 520) SOURCE(BEAKER) (test code = Urine, Voided 7971) BLOOD [id number] 11:00:00 Test Item Value Reference Range Interpretation Comments CULTURE (BEAKER) (test No growth in 5 days code = 1095) BLOOD [id number] 11:00:00 Test Item Value Reference Range Interpretation Comments CULTURE (BEAKER) (test No growth in 5 days code = 1095) BASIC METABOLIC [id number] 05:33:00 Test Item Value Reference Range Interpretation [...] ESTIMATED GFR. CBC W/PLT COUNT & AUTO [id number] 05:04:00 Test Item Value Reference Range Interpretation [...] 0.00-0.20 (test code = 417) 0.00VANCOMYCIN LEVEL, [id number] 21:36:00 Test Item Value Reference Range Interpretation Comments VANCOMYCIN TROUGH (BEAKER) (test 9.5 ug/mL 10.0-20.0 L code = 522) Please draw prior to 4th vancomycin doseVITAMIN B12 AND [id number] 04:33:00 Test Item Value Reference Range Interpretation Comments VITAMIN B12 (BEAKER) (test code = 599 pg/mL 213-378 584) FOLATE (BEAKER) (test code = 362) 7.7 ng/mL >=7.0 Effective 03/02/2014: Folate Reference Range ChangeNew: >=7.0 Previous: >=5.4HEPATIC FUNCTION [id number] 03:58:00 Test Item Value Reference Range Interpretation [...] = 12 U/L 6-55 347) BASIC METABOLIC [id number] 03:58:00 Test Item Value Reference Range Interpretation [...] ESTIMATED GFR. CBC W/PLT COUNT & AUTO [id number] 03:45:00 Test Item Value Reference Range Interpretation [...] K/ L 0.00-0.20 (test code = 417) [id number] 03:18:00 Test Item Value Reference Range Interpretation Comments PARTIAL THROMBOPLASTIN TIME 42.6 seconds 22.5-36.0 H (BEAKER) (test code = 760) PROTHROMBIN [id number] 03:17:00 Test Item Value Reference Range Interpretation Comments PROTIME (BEAKER) (test code = 13.0 seconds 11.7-14.7 759) INR (BEAKER) (test code = 370) 1.0 <=5.9 RECOMMENDED COUMADIN/WARFARIN INR THERAPY RANGESSTANDARD DOSE: 2.0 - 3.0 Includes: PROPHYLAXIS for venous thrombosis, systemic embolization; TREATMENT for venous thrombosis and/or pulmonary embolus.HIGH RISK: Target INR is 2.5-3.5 for patients with mechanical heart valves.BASIC METABOLIC [id number] 02:48:00 Test Item Value Reference Range Interpretation [...] ESTIMATED GFR. CBC W/PLT COUNT & AUTO [id number] 02:47:00 Test Item Value Reference Range Interpretation [...] K/ L 0.00-0.20 (test code = 417) [id number] 09:18:00 Test Item Value Reference Range Interpretation Comments Sodium Lvl (test code = Sodium Lvl) 146 135-145 [facility]KhgfesxRZJBZYWBO1716-80-85 09:18:00 Test Item Value Reference Range Interpretation Comments Potassium Lvl (test code = Potassium 4.0 3.5-5.1 N Lvl) [facility]RzzfvwlSGUXQAERF4901-99-21 09:18:00 Test Item Value Reference Range Interpretation Comments BUN (test code = BUN) 11 7-22 [facility]IrsxzcuUUJNFLMWU6535-58-48 09:18:00 Test Item Value Reference Range Interpretation Comments Glucose Lvl (test code = Glucose Lvl) 107 70-99 H [facility]EilpxmbUHRATBPDA9795-59-08 09:18:00 Test Item Value Reference Range Interpretation Comments Creatinine Lvl (test code = Creatinine 0.7 0.5-1.4 N Lvl) [facility]TpvcayrYBEAPGZWXA4036-74-40 09:18:00 Test Item Value Reference Range Interpretation Comments RDW (test code = RDW) 13.6 11.5-14.5 N [facility] HospitalOrvowmlCOPUXFPFSR5798-77-20 09:18:00 Test Item Value Reference Range Interpretation Comments MCV (test code = MCV) 98.9 80.0-94.0 H [facility] HospitalPwtjtysMWLVNKKAGY2074-74-33 09:18:00 Test Item Value Reference Range Interpretation Comments Hct (test code = Hct) 38.8 42.0-54.0 L [facility] HospitalDzjmixbFSEEXTUNVK5977-12-01 09:18:00 Test Item Value Reference Range Interpretation Comments MPV (test code = MPV) 9.7 7.4-10.4 N [facility] HospitalRcrtodwMKTSUNBOLQ5600-87-63 09:18:00 Test Item Value Reference Range Interpretation Comments Platelet (test code = Platelet) 188 133-450 N [facility] HospitalSnhrjynUUOIUZBZTB2605-77-23 09:18:00 Test Item Value Reference Range Interpretation Comments MCHC (test code = MCHC) 34.5 32.0-36.0 N [facility] HospitalHphptfpOOCIEZPUTH3529-61-33 09:18:00 Test Item Value Reference Range Interpretation Comments MCH (test code = MCH) 34.2 pg 27.0-31.0 H [facility] HospitalBqvimbuOMHBYEIPZA5338-51-77 09:18:00 Test Item Value Reference Range Interpretation Comments Hgb (test code = Hgb) 13.4 14.0-18.0 L [facility] HospitalQnhtgtzUFTCFFBNSJ2469-78-72 09:18:00 Test Item Value Reference Range Interpretation Comments WBC (test code = WBC) 5.8 3.7-10.4 N [facility] HospitalKdmbmwdHXAKRJCXYD6906-13-63 09:18:00 Test Item Value Reference Range Interpretation Comments RBC (test code = RBC) 3.92 4.70-6.10 L [facility] HospitalAiwxurkPTSHPLJHVZ6408-17-21 09:18:00 Test Item Value Reference Range Interpretation Comments Monocytes # (test code 0.8 See_Comment N [Aut omated message] The = Monocytes #) system which generated this result tra nsmitted reference range : <=0.8. The reference r jessika was not used to int erpret this result as normal/abnormal . [facility] HospitalFkkknwpOOHEIUAVDZ9145-31-70 09:18:00 Test Item Value Reference Range Interpretation Comments Lymphocytes # (test code = Lymphocytes 2.4 1.0-5.5 N #) [facility] HospitalLhwicnbINFKCHFTPI2997-63-34 09:18:00 Test Item Value Reference Range Interpretation Comments Basophils # (test code 0.0 See_Comment N [Aut omated message] The = Basophils #) system which generated this result tra nsmitted reference range : <=0.2. The reference r jessika was not used to int erpret this result as normal/abnormal . [facility] HospitalAyrwjhgYMAQGPCTMC4672-70-90 09:18:00 Test Item Value Reference Range Interpretation Comments Eosinophils # (test code 0.2 See_Comment N [A utomated message] The = Eosinophils #) system whic h generated this result tra nsmitted reference range : <=0.5. The reference r jessika was not used to int erpret this result as normal/abnormal . [facility] HospitalWapgvtnPCKTCAJUGM0181-35-76 09:18:00 Test Item Value Reference Range Interpretation Comments Lymphocytes (test code = Lymphocytes) 41.3 20.0-40.0 H [facility] HospitalStdijcxBEFGKPULGF4027-31-35 09:18:00 Test Item Value Reference Range Interpretation Comments Segs (test code = Segs) 41.0 45.0-75.0 L [facility] HospitalWgiwdmgADUCDXIDAO0794-02-41 09:18:00 Test Item Value Reference Range Interpretation Comments Eosinophils (test code = 3.9 See_Comment N [A utomated message] The Eosinophils) system which ge nerated this result tra nsmitted reference range : <=4.0. The reference r jessika was not used to int erpret this result as normal/abnormal . [facility] HospitalSorgaorDXVHICUDKV1244-12-06 09:18:00 Test Item Value Reference Range Interpretation Comments Segs-Bands # (test code = Segs-Bands #) 2.4 1.5-8.1 N [facility] HospitalVttdfyxTZSAGUWAUW6827-11-21 09:18:00 Test Item Value Reference Range Interpretation Comments Basophils (test code = 0.3 See_Comment N [Aut omated message] The Basophils) system which ge nerated this result tra nsmitted reference range : <=1.0. The reference r jessika was not used to int erpret this result as normal/abnormal . [facility] HospitalKrvfzutGZCSFECGSD0226-86-93 09:18:00 Test Item Value Reference Range Interpretation Comments Monocytes (test code = Monocytes) 13.5 2.0-12.0 H [facility] CenterUustprkYGFXMYVSG4482-18-61 09:18:00 Test Item Value Reference Range Interpretation Comments AGAP (test code = AGAP) 14.0 10.0-20.0 N [facility] CenterFjticamPOEWCRHQM0265-87-73 09:18:00 Test Item Value Reference Range Interpretation Comments Chloride Lvl (test code = Chloride Lvl) 110 95-109 H [facility] CenterHivrtsiEKHYRMNNJ6273-82-23 09:18:00 Test Item Value Reference Range Interpretation Comments CO2 (test code = CO2) 26 24-32 N [facility] CenterIvmrehlETQPULTTO2855-66-09 09:18:00 Test Item Value Reference Range Interpretation Comments Calcium Lvl (test code = Calcium Lvl) 9.1 8.5-10.5 N [facility] CenterVxozwnmDKRJGLTAJ9298-80-68 09:18:00 Test Item Value Reference Range Interpretation Comments Sodium Lvl (test code = Sodium Lvl) 146 135-145 H [facility] CenterNlgkpuhRSBEUWWYX7736-76-10 09:18:00 Test Item Value Reference Range Interpretation Comments Potassium Lvl (test code = Potassium 4.0 3.5-5.1 N Lvl) [facility] CenterMioryckMZPLWELYL5306-81-70 09:18:00 Test Item Value Reference Range Interpretation Comments AGAP (test code = AGAP) 14.0 10.0-20.0 N [facility] CenterIgumspzMLVYTIPGA7249-64-68 09:18:00 Test Item Value Reference Range Interpretation Comments Chloride Lvl (test code = Chloride Lvl) 110 95-109 H [facility] CenterXjxgdwcDUTHYLKXF2078-21-13 09:18:00 Test Item Value Reference Range Interpretation Comments CO2 (test code = CO2) 26 24-32 N [facility] CenterPueyifmKPNOAMKCL2713-24-40 09:18:00 Test Item Value Reference Range Interpretation Comments BUN (test code = BUN) 11 7-22 N [facility] CenterUnppbuaUWBDNMBOW0450-99-65 09:18:00 Test Item Value Reference Range Interpretation Comments Calcium Lvl (test code = Calcium Lvl) 9.1 8.5-10.5 N [facility] CenterDdoloxqVDJBIGXHW1010-49-33 09:18:00 Test Item Value Reference Range Interpretation Comments Sodium Lvl (test code = Sodium Lvl) 146 135-145 H [facility] CenterPusqohwNYWNAPHNF5182-05-88 09:18:00 Test Item Value Reference Range Interpretation Comments Potassium Lvl (test code = Potassium 4.0 3.5-5.1 N Lvl) [facility] CenterImpwtejZGQKPJQWP0897-77-47 09:18:00 Test Item Value Reference Range Interpretation Comments BUN (test code = BUN) 11 7-22 N [facility] CenterCctvvzzBRLIWZWEA6327-70-72 09:18:00 Test Item Value Reference Range Interpretation Comments Glucose Lvl (test code = Glucose Lvl) 107 70-99 H [facility] CenterLvocnboHAFEWSNHR1529-82-37 09:18:00 Test Item Value Reference Range Interpretation Comments Creatinine Lvl (test code = Creatinine 0.7 0.5-1.4 N Lvl) [facility] HospitalDymqnxfTQHNBGVGRJ3610-56-39 09:18:00 Test Item Value Reference Range Interpretation Comments RDW (test code = RDW) 13.6 11.5-14.5 N [facility] HospitalQtnrqhbUWWEVENYNG3780-81-68 09:18:00 Test Item Value Reference Range Interpretation Comments MCV (test code = MCV) 98.9 80.0-94.0 H [facility] HospitalXvupeleTNELMKLHRB8870-57-69 09:18:00 Test Item Value Reference Range Interpretation Comments Hct (test code = Hct) 38.8 42.0-54.0 L [facility] HospitalXefbuapRBYAISROOI0932-01-31 09:18:00 Test Item Value Reference Range Interpretation Comments MPV (test code = MPV) 9.7 7.4-10.4 N [facility] CenterMpygskiLXPEWJCSO9644-70-63 09:18:00 Test Item Value Reference Range Interpretation Comments Glucose Lvl (test code = Glucose Lvl) 107 70-99 H [facility] HospitalOrqucceSDIJVYVZYE7983-32-18 09:18:00 Test Item Value Reference Range Interpretation Comments Platelet (test code = Platelet) 188 133-450 N [facility] HospitalZoxkznkZPFJIHGBYF9011-14-89 09:18:00 Test Item Value Reference Range Interpretation Comments MCHC (test code = MCHC) 34.5 32.0-36.0 N [facility] HospitalEjzihetXXYZBPTCNM9775-68-75 09:18:00 Test Item Value Reference Range Interpretation Comments MCH (test code = MCH) 34.2 pg 27.0-31.0 H [facility] HospitalUsoseiiVISCSEYDVR2638-36-69 09:18:00 Test Item Value Reference Range Interpretation Comments Hgb (test code = Hgb) 13.4 14.0-18.0 L [facility] CenterNyimnacPFPLAOXGV4267-91-30 09:18:00 Test Item Value Reference Range Interpretation Comments AGAP (test code = AGAP) 14.0 10.0-20.0 N [facility] HospitalUytwuvdSYEQOVGAQG1517-28-93 09:18:00 Test Item Value Reference Range Interpretation Comments WBC (test code = WBC) 5.8 3.7-10.4 N [facility] HospitalNmstzobTONBTCOTQB6315-85-31 09:18:00 Test Item Value Reference Range Interpretation Comments RBC (test code = RBC) 3.92 4.70-6.10 L [facility] HospitalXrbtwhsTOEWEREXYA9866-92-99 09:18:00 Test Item Value Reference Range Interpretation Comments Monocytes # (test code 0.8 See_Comment N [Aut omated message] The = Monocytes #) system which generated this result tra nsmitted reference range : <=0.8. The reference r jessika was not used to int erpret this result as normal/abnormal . [facility] HospitalDilrxqvHSBNWMFULS1722-20-98 09:18:00 Test Item Value Reference Range Interpretation Comments Lymphocytes # (test code = Lymphocytes 2.4 1.0-5.5 N #) [facility] HospitalSekllroUWUAQAYPMB5055-86-27 09:18:00 Test Item Value Reference Range Interpretation Comments Basophils # (test code 0.0 See_Comment N [Aut omated message] The = Basophils #) system which generated this result tra nsmitted reference range : <=0.2. The reference r jessika was not used to int erpret this result as normal/abnormal . [facility] HospitalWxzlnqwHWIKGBZKMN0654-49-68 09:18:00 Test Item Value Reference Range Interpretation Comments Eosinophils # (test code 0.2 See_Comment N [A utomated message] The = Eosinophils #) system whic h generated this result tra nsmitted reference range : <=0.5. The reference r jessika was not used to int erpret this result as normal/abnormal . [facility] CenterEairecaPYQHHIDUN1741-04-20 09:18:00 Test Item Value Reference Range Interpretation Comments Creatinine Lvl (test code = Creatinine 0.7 0.5-1.4 N Lvl) [facility] HospitalFciiwruNNQMZKLJEO7920-84-81 09:18:00 Test Item Value Reference Range Interpretation Comments Lymphocytes (test code = Lymphocytes) 41.3 20.0-40.0 H [facility] HospitalYmupwylMIQUIANILH5715-88-13 09:18:00 Test Item Value Reference Range Interpretation Comments Segs (test code = Segs) 41.0 45.0-75.0 L [facility] HospitalPkmvnadFCJKLBQYUQ7703-44-08 09:18:00 Test Item Value Reference Range Interpretation Comments Eosinophils (test code = 3.9 See_Comment N [A utomated message] The Eosinophils) system which ge nerated this result tra nsmitted reference range : <=4.0. The reference r jessika was not used to int erpret this result as normal/abnormal . [facility] CenterHrcawhrAUWBBKESB5220-87-64 09:18:00 Test Item Value Reference Range Interpretation Comments Chloride Lvl (test code = Chloride Lvl) 110 95-109 H [facility] HospitalYyusadkSDBFEWREAF7808-41-68 09:18:00 Test Item Value Reference Range Interpretation Comments Segs-Bands # (test code = Segs-Bands #) 2.4 1.5-8.1 N [facility] HospitalJahcjxcKOULHNDQEF4550-89-56 09:18:00 Test Item Value Reference Range Interpretation Comments Basophils (test code = 0.3 See_Comment N [Aut omated message] The Basophils) system which ge nerated this result tra nsmitted reference range : <=1.0. The reference r jessika was not used to int erpret this result as normal/abnormal . [facility] HospitalFuxqswqKWNEMUPPQL0971-85-53 09:18:00 Test Item Value Reference Range Interpretation Comments Monocytes (test code = Monocytes) 13.5 2.0-12.0 H [facility] HospitalVzerlduRZRQWGATQS7734-94-32 09:18:00 Test Item Value Reference Range Interpretation Comments RDW (test code = RDW) 13.6 11.5-14.5 N [facility] HospitalEykridpYHPYLFJTVB6377-32-45 09:18:00 Test Item Value Reference Range Interpretation Comments MCV (test code = MCV) 98.9 80.0-94.0 H [facility] HospitalQdbxjzvXMKUAEFLLO4283-98-50 09:18:00 Test Item Value Reference Range Interpretation Comments Hct (test code = Hct) 38.8 42.0-54.0 L [facility] HospitalWnjdynzXCRIARGDVF4049-93-53 09:18:00 Test Item Value Reference Range Interpretation Comments MPV (test code = MPV) 9.7 7.4-10.4 N [facility] HospitalIrczvwyTVYVZQLWXP8666-18-26 09:18:00 Test Item Value Reference Range Interpretation Comments Platelet (test code = Platelet) 188 133-450 N [facility] HospitalPlworniPVUULQIHWC1497-95-57 09:18:00 Test Item Value Reference Range Interpretation Comments MCHC (test code = MCHC) 34.5 32.0-36.0 N [facility] CenterUnaeauwYYCXORIAF1549-46-57 09:18:00 Test Item Value Reference Range Interpretation Comments AGAP (test code = AGAP) 14.0 10.0-20.0 N [facility] CenterUcupomiDXCOWEEWJ4637-83-89 09:18:00 Test Item Value Reference Range Interpretation Comments Chloride Lvl (test code = Chloride Lvl) 110 95-109 H [facility] CenterOvfnsrzKTCNRWIBL8067-01-75 09:18:00 Test Item Value Reference Range Interpretation Comments CO2 (test code = CO2) 26 24-32 N [facility] CenterFytcdhbTOZGWADMT4372-86-53 09:18:00 Test Item Value Reference Range Interpretation Comments Calcium Lvl (test code = Calcium Lvl) 9.1 8.5-10.5 N [facility] CenterIlxcjqsQDPHGJVUV8287-35-83 09:18:00 Test Item Value Reference Range Interpretation Comments Sodium Lvl (test code = Sodium Lvl) 146 135-145 H [facility] CenterLozoxqiJBWYUVUGQ3864-70-12 09:18:00 Test Item Value Reference Range Interpretation Comments Potassium Lvl (test code = Potassium 4.0 3.5-5.1 N Lvl) [facility] CenterYklkagvRJACGGKUM4915-85-96 09:18:00 Test Item Value Reference Range Interpretation Comments BUN (test code = BUN) 11 7-22 N [facility] CenterSrbpuddRZAMHJPDG0753-72-31 09:18:00 Test Item Value Reference Range Interpretation Comments Glucose Lvl (test code = Glucose Lvl) 107 70-99 H [facility] HospitalRzyngthRSREDVJPES6927-34-60 09:18:00 Test Item Value Reference Range Interpretation Comments MCH (test code = MCH) 34.2 pg 27.0-31.0 H [facility] CenterOkthdorZKVRGWHKI2690-04-92 09:18:00 Test Item Value Reference Range Interpretation Comments Creatinine Lvl (test code = Creatinine 0.7 0.5-1.4 N Lvl) [facility] HospitalJyqzmszLAPWKTVCLP5121-65-69 09:18:00 Test Item Value Reference Range Interpretation Comments RDW (test code = RDW) 13.6 11.5-14.5 N [facility] HospitalEbnixqqROOXFWPNPM0144-84-05 09:18:00 Test Item Value Reference Range Interpretation Comments MCV (test code = MCV) 98.9 80.0-94.0 H [facility] HospitalIsbrhkwAWXKWTAXXP4158-64-62 09:18:00 Test Item Value Reference Range Interpretation Comments Hct (test code = Hct) 38.8 42.0-54.0 L [facility] HospitalSqpqyfvIXAPITYZQR3372-09-37 09:18:00 Test Item Value Reference Range Interpretation Comments MPV (test code = MPV) 9.7 7.4-10.4 N [facility] HospitalNkvzbvrTWROITVPUO9933-00-78 09:18:00 Test Item Value Reference Range Interpretation Comments Platelet (test code = Platelet) 188 133-450 N [facility] HospitalDxccfioRUPUEADQUV2160-26-72 09:18:00 Test Item Value Reference Range Interpretation Comments MCHC (test code = MCHC) 34.5 32.0-36.0 N [facility] HospitalGykqwbnHFYSYRUIJG6582-18-24 09:18:00 Test Item Value Reference Range Interpretation Comments MCH (test code = MCH) 34.2 pg 27.0-31.0 H [facility] HospitalLngxetmKNVEFDMRNO6801-84-55 09:18:00 Test Item Value Reference Range Interpretation Comments Hgb (test code = Hgb) 13.4 14.0-18.0 L [facility] HospitalQoojsodEPGFJYTHXP0175-55-93 09:18:00 Test Item Value Reference Range Interpretation Comments WBC (test code = WBC) 5.8 3.7-10.4 N [facility] CenterEkemfoyWYNYVLINY6121-68-70 09:18:00 Test Item Value Reference Range Interpretation Comments CO2 (test code = CO2) 26 24-32 N [facility] HospitalRbdgpzeAWPRZDXKUL0426-42-66 09:18:00 Test Item Value Reference Range Interpretation Comments Hgb (test code = Hgb) 13.4 14.0-18.0 L [facility] HospitalSutschoOXFILFWFRA7123-93-44 09:18:00 Test Item Value Reference Range Interpretation Comments RBC (test code = RBC) 3.92 4.70-6.10 L [facility] HospitalFbfzhjqLBOOXQKOWS5555-18-67 09:18:00 Test Item Value Reference Range Interpretation Comments Monocytes # (test code 0.8 See_Comment N [Aut omated message] The = Monocytes #) system which generated this result tra nsmitted reference range : <=0.8. The reference r jessika was not used to int erpret this result as normal/abnormal . [facility] HospitalVxvhmzpBBBNUTLJOA0365-62-92 09:18:00 Test Item Value Reference Range Interpretation Comments Lymphocytes # (test code = Lymphocytes 2.4 1.0-5.5 N #) [facility] HospitalPlfacnmRERACWDCDM3555-42-26 09:18:00 Test Item Value Reference Range Interpretation Comments Basophils # (test code 0.0 See_Comment N [Aut omated message] The = Basophils #) system which generated this result tra nsmitted reference range : <=0.2. The reference r jessika was not used to int erpret this result as normal/abnormal . [facility] HospitalNvbwpjbWUXHLFSCHP8004-41-65 09:18:00 Test Item Value Reference Range Interpretation Comments Eosinophils # (test code 0.2 See_Comment N [A utomated message] The = Eosinophils #) system whic h generated this result tra nsmitted reference range : <=0.5. The reference r jessika was not used to int erpret this result as normal/abnormal . [facility] HospitalEravdyvJCGTPGSXWI8567-12-89 09:18:00 Test Item Value Reference Range Interpretation Comments Lymphocytes (test code = Lymphocytes) 41.3 20.0-40.0 H [facility] HospitalAtidqcrCVOKRWQMSM6988-24-79 09:18:00 Test Item Value Reference Range Interpretation Comments Segs (test code = Segs) 41.0 45.0-75.0 L [facility] HospitalBbvtgckDCRMXDSFZQ3599-32-26 09:18:00 Test Item Value Reference Range Interpretation Comments Eosinophils (test code = 3.9 See_Comment N [A utomated message] The Eosinophils) system which ge nerated this result tra nsmitted reference range : <=4.0. The reference r jessika was not used to int erpret this result as normal/abnormal . [facility] HospitalPpbjxcsPUEBULAWQN7127-48-97 09:18:00 Test Item Value Reference Range Interpretation Comments Segs-Bands # (test code = Segs-Bands #) 2.4 1.5-8.1 N [facility] HospitalIcyiymoESWXREWQRK7065-69-46 09:18:00 Test Item Value Reference Range Interpretation Comments Basophils (test code = 0.3 See_Comment N [Aut omated message] The Basophils) system which ge nerated this result tra nsmitted reference range : <=1.0. The reference r jessika was not used to int erpret this result as normal/abnormal . [facility] HospitalChklqcyBBQVOEPKYW1711-47-02 09:18:00 Test Item Value Reference Range Interpretation Comments WBC (test code = WBC) 5.8 3.7-10.4 N [facility] HospitalJaxrelkXCRMOBLJLD8408-40-70 09:18:00 Test Item Value Reference Range Interpretation Comments Monocytes (test code = Monocytes) 13.5 2.0-12.0 H [facility] HospitalWupubvrPFWSDYZEXV5758-84-27 09:18:00 Test Item Value Reference Range Interpretation Comments RBC (test code = RBC) 3.92 4.70-6.10 L [facility] HospitalXwcjpsyEQVEIJGGHH3265-85-70 09:18:00 Test Item Value Reference Range Interpretation Comments Monocytes # (test code 0.8 See_Comment N [Aut omated message] The = Monocytes #) system which generated this result tra nsmitted reference range : <=0.8. The reference r jessika was not used to int erpret this result as normal/abnormal . [facility] HospitalZgesqmrCAFPPIHKEV3860-31-10 09:18:00 Test Item Value Reference Range Interpretation Comments Lymphocytes # (test code = Lymphocytes 2.4 1.0-5.5 N #) [facility] HospitalAervhjrOYCWUGJVKB0961-90-61 09:18:00 Test Item Value Reference Range Interpretation Comments Basophils # (test code 0.0 See_Comment N [Aut omated message] The = Basophils #) system which generated this result tra nsmitted reference range : <=0.2. The reference r jessika was not used to int erpret this result as normal/abnormal . [facility] HospitalNirghkrQOEAGRGRRC9643-24-06 09:18:00 Test Item Value Reference Range Interpretation Comments Eosinophils # (test code 0.2 See_Comment N [A utomated message] The = Eosinophils #) system whic h generated this result tra nsmitted reference range : <=0.5. The reference r jessika was not used to int erpret this result as normal/abnormal . [facility] HospitalNbqrcthEILFOZGHHE3356-33-21 09:18:00 Test Item Value Reference Range Interpretation Comments Lymphocytes (test code = Lymphocytes) 41.3 20.0-40.0 H [facility] HospitalGnqdjpyBEQKZPSFIK7459-83-19 09:18:00 Test Item Value Reference Range Interpretation Comments Segs (test code = Segs) 41.0 45.0-75.0 L [facility] HospitalTxklxdkUCBRIVWDHR2583-31-19 09:18:00 Test Item Value Reference Range Interpretation Comments Eosinophils (test code = 3.9 See_Comment N [A utomated message] The Eosinophils) system which ge nerated this result tra nsmitted reference range : <=4.0. The reference r jessika was not used to int erpret this result as normal/abnormal . [facility]VfjtzumYUKURREQR2653-08-12 09:18:00 Test Item Value Reference Range Interpretation Comments Calcium Lvl (test code = Calcium Lvl) 9.1 8.5-10.5 N [facility] HospitalDpzrwpwGBNKAPPFFP5146-33-78 09:18:00 Test Item Value Reference Range Interpretation Comments Segs-Bands # (test code = Segs-Bands #) 2.4 1.5-8.1 N [facility] HospitalThnpnnvUHBDAACAKL5502-63-60 09:18:00 Test Item Value Reference Range Interpretation Comments Basophils (test code = 0.3 See_Comment N [Aut omated message] The Basophils) system which ge nerated this result tra nsmitted reference range : <=1.0. The reference r jessika was not used to int erpret this result as normal/abnormal . [facility] HospitalGocqhblANUVKCBUCR3746-15-29 09:18:00 Test Item Value Reference Range Interpretation Comments Monocytes (test code = Monocytes) 13.5 2.0-12.0 H [facility] GLUCOSE ITTJQPG8152-16-57 21:40:00 Test Item Value Reference Range Interpretation Comments Comment1 (test code = Comment1) Notify RN/ [facility] GLUCOSE [id number] 21:40:00 Test Item Value Reference Range Interpretation Comments Gluc POC Lifscn (test code = Gluc POC 121 70-99 H Lifscn) [facility] GLUCOSE [id number] 21:40:00 Test Item Value Reference Range Interpretation Comments Comment1 (test code = Comment1) Notify RN/ [facility] GLUCOSE [id number] 21:40:00 Test Item Value Reference Range Interpretation Comments Gluc POC Lifscn (test code = Gluc POC 121 70-99 H Lifscn) [facility] GLUCOSE [id number] 21:40:00 Test Item Value Reference Range Interpretation Comments Comment1 (test code = Comment1) Notify RN/ [facility] GLUCOSE [id number] 21:40:00 Test Item Value Reference Range Interpretation Comments Gluc POC Lifscn (test code = Gluc POC 121 70-99 H Lifscn) [facility] GLUCOSE [id number] 21:40:00 Test Item Value Reference Range Interpretation Comments Comment1 (test code = Comment1) Notify RN/ [facility] GLUCOSE [id number] 21:40:00 Test Item Value Reference Range Interpretation Comments Gluc POC Lifscn (test code = Gluc POC 121 70-99 H Lifscn) [facility]ZJUVJBKU9734-[facility]-27 10:14:00 Test Item Value Reference Range Interpretation Comments Calcium Lvl (test code = Calcium Lvl) 9.0 8.5-10.5 N [facility] CenterYowvlcdENDXGNZKO6345-97-29 10:14:00 Test Item Value Reference Range Interpretation Comments Glucose Lvl (test code = Glucose Lvl) 86 70-99 N [facility] CenterYoojdsnOZSLGGDZF4575-61-86 10:14:00 Test Item Value Reference Range Interpretation Comments Potassium Lvl (test code = Potassium 4.4 3.5-5.1 N Lvl) [facility] CenterNpxvbxaFSLTKYIPQ5879-03-74 10:14:00 Test Item Value Reference Range Interpretation Comments Chloride Lvl (test code = Chloride Lvl) 107 95-109 N [facility] CenterXqlhopkEHXWTUCGN2404-45-20 10:14:00 Test Item Value Reference Range Interpretation Comments BUN (test code = BUN) 13 7-22 N [facility] CenterYnespoeURZSXKOUS6713-99-30 10:14:00 Test Item Value Reference Range Interpretation Comments Creatinine Lvl (test code = Creatinine 0.7 0.5-1.4 N Lvl) [facility] CenterNuimwtgPEVDTQVQP2298-13-54 10:14:00 Test Item Value Reference Range Interpretation Comments Sodium Lvl (test code = Sodium Lvl) 144 135-145 N [facility] CenterMbpougvKFOZXIXOP2184-55-94 10:14:00 Test Item Value Reference Range Interpretation Comments AGAP (test code = AGAP) 11.4 10.0-20.0 N [facility] HospitalXzhdpyqAMGJTAUKTA1621-41-23 10:14:00 Test Item Value Reference Range Interpretation Comments Basophils (test code = 0.5 See_Comment N [Aut omated message] The Basophils) system which ge nerated this result tra nsmitted reference range : <=1.0. The reference r jessika was not used to int erpret this result as normal/abnormal . [facility] HospitalJrgeljkTQCHOWCHZP4252-19-24 10:14:00 Test Item Value Reference Range Interpretation Comments Eosinophils (test code = 3.1 See_Comment N [A utomated message] The Eosinophils) system which ge nerated this result tra nsmitted reference range : <=4.0. The reference r jessika was not used to int erpret this result as normal/abnormal . [facility] HospitalQjoowatKKJWZZZFGX4860-18-50 10:14:00 Test Item Value Reference Range Interpretation Comments Segs-Bands # (test code = Segs-Bands #) 3.1 1.5-8.1 N [facility] HospitalYvigwubJZLLAMOOYD0556-80-12 10:14:00 Test Item Value Reference Range Interpretation Comments Lymphocytes # (test code = Lymphocytes 2.3 1.0-5.5 N #) [facility] HospitalAzzpqnzPWSZPYYNNQ2870-49-34 10:14:00 Test Item Value Reference Range Interpretation Comments Monocytes # (test code 0.9 See_Comment H [Aut omated message] The = Monocytes #) system which generated this result tra nsmitted reference range : <=0.8. The reference r jessika was not used to int erpret this result as normal/abnormal . [facility] HospitalDsxizqxZBEDFSOCOH1854-81-84 10:14:00 Test Item Value Reference Range Interpretation Comments Segs (test code = Segs) 48.3 45.0-75.0 N [facility] HospitalQdhewijIHLSITSIWO1389-10-51 10:14:00 Test Item Value Reference Range Interpretation Comments Lymphocytes (test code = Lymphocytes) 34.9 20.0-40.0 N [facility] HospitalBncupwtMOHAIPSMZJ9517-07-58 10:14:00 Test Item Value Reference Range Interpretation Comments Macrocyte (test code = 1+ *ABN*(09/25/2011 A Macrocyte) 05:14:00) [facility] HospitalOviepdhDBPPGNNELV0340-57-93 10:14:00 Test Item Value Reference Range Interpretation Comments Eosinophils # (test code 0.2 See_Comment N [A utomated message] The = Eosinophils #) system whic h generated this result tra nsmitted reference range : <=0.5. The reference r jessika was not used to int erpret this result as normal/abnormal . [facility] HospitalJewlwkkXVZDJHCCFZ5265-76-31 10:14:00 Test Item Value Reference Range Interpretation Comments Monocytes (test code = Monocytes) 13.2 2.0-12.0 H [facility] HospitalMidvkbpHMTSJJQNTP8427-64-34 10:14:00 Test Item Value Reference Range Interpretation Comments Basophils # (test code 0.0 See_Comment N [Aut omated message] The = Basophils #) system which generated this result tra nsmitted reference range : <=0.2. The reference r jessika was not used to int erpret this result as normal/abnormal . [facility] HospitalIhjjzoqCUPRRPIQRE9253-06-74 10:14:00 Test Item Value Reference Range Interpretation Comments MPV (test code = MPV) 9.1 7.4-10.4 N [facility] HospitalXnqrtwcILYXZAOMFR7046-92-51 10:14:00 Test Item Value Reference Range Interpretation Comments Platelet (test code = Platelet) 183 133-450 N [facility] HospitalIyfvzbmGSPFZUBVWZ7377-91-05 10:14:00 Test Item Value Reference Range Interpretation Comments RDW (test code = RDW) 14.3 11.5-14.5 N [facility] HospitalUhedxjtHQMLOPOVDV8779-24-29 10:14:00 Test Item Value Reference Range Interpretation Comments MCHC (test code = MCHC) 34.1 32.0-36.0 N [facility] HospitalZgofbjpBOOEXBOIMN8816-48-56 10:14:00 Test Item Value Reference Range Interpretation Comments Hct (test code = Hct) 42.1 42.0-54.0 N [facility] HospitalDmbmgpkYMGHITDETJ9778-80-11 10:14:00 Test Item Value Reference Range Interpretation Comments Hgb (test code = Hgb) 14.4 14.0-18.0 N [facility] HospitalZhgfduzDAJJBBPPHG3378-80-66 10:14:00 Test Item Value Reference Range Interpretation Comments WBC (test code = WBC) 6.4 3.7-10.4 N [facility] HospitalTuapqztRNTOHRFFXL7339-20-17 10:14:00 Test Item Value Reference Range Interpretation Comments MCV (test code = MCV) 99.3 80.0-94.0 H [facility] HospitalUibhwoyYHHNIJTPJN7907-00-22 10:14:00 Test Item Value Reference Range Interpretation Comments RBC (test code = RBC) 4.24 4.70-6.10 L [facility] HospitalAqzrpivLALAJJMCTQ1952-06-12 10:14:00 Test Item Value Reference Range Interpretation Comments MCH (test code = MCH) 33.9 pg 27.0-31.0 H [facility] CenterLxomixaGDAMQBFTJ7738-81-39 10:14:00 Test Item Value Reference Range Interpretation Comments CO2 (test code = CO2) 30 24-32 N [facility] CenterEjzhioaHTYTMSYEP7412-77-52 10:14:00 Test Item Value Reference Range Interpretation Comments Calcium Lvl (test code = Calcium Lvl) 9.0 8.5-10.5 N [facility] CenterPhqwysrOHCPFBUBE9737-61-94 10:14:00 Test Item Value Reference Range Interpretation Comments Glucose Lvl (test code = Glucose Lvl) 86 70-99 N [facility] CenterKpahmyxVXQQIMLGV3070-67-81 10:14:00 Test Item Value Reference Range Interpretation Comments Potassium Lvl (test code = Potassium 4.4 3.5-5.1 N Lvl) [facility] CenterAiabeohKGTKRGVRX3286-17-66 10:14:00 Test Item Value Reference Range Interpretation Comments Chloride Lvl (test code = Chloride Lvl) 107 95-109 N [facility] CenterVufmxesWLHENBZPD4086-25-45 10:14:00 Test Item Value Reference Range Interpretation Comments BUN (test code = BUN) 13 7-22 N [facility] CenterFgnqzhiUJQEKJHXB2649-39-94 10:14:00 Test Item Value Reference Range Interpretation Comments Creatinine Lvl (test code = Creatinine 0.7 0.5-1.4 N Lvl) [facility] CenterSggqrnvRIMROZYRG6510-50-28 10:14:00 Test Item Value Reference Range Interpretation Comments Sodium Lvl (test code = Sodium Lvl) 144 135-145 N [facility] CenterWksddwpDLOTMIKQO7455-24-14 10:14:00 Test Item Value Reference Range Interpretation Comments AGAP (test code = AGAP) 11.4 10.0-20.0 N [facility] HospitalMymihlsHXHYMHMRPN9512-90-92 10:14:00 Test Item Value Reference Range Interpretation Comments Basophils (test code = 0.5 See_Comment N [Aut omated message] The Basophils) system which ge nerated this result tra nsmitted reference range : <=1.0. The reference r jessika was not used to int erpret this result as normal/abnormal . [facility] HospitalHvdsozkWFOFLNABMY9023-76-59 10:14:00 Test Item Value Reference Range Interpretation Comments Eosinophils (test code = 3.1 See_Comment N [A utomated message] The Eosinophils) system which ge nerated this result tra nsmitted reference range : <=4.0. The reference r jessika was not used to int erpret this result as normal/abnormal . [facility] HospitalQygsqvxANKVTVKFXS1087-61-87 10:14:00 Test Item Value Reference Range Interpretation Comments Segs-Bands # (test code = Segs-Bands #) 3.1 1.5-8.1 N [facility] HospitalTcfnafbRDMUBWMFKM5987-04-25 10:14:00 Test Item Value Reference Range Interpretation Comments Lymphocytes # (test code = Lymphocytes 2.3 1.0-5.5 N #) [facility] HospitalHuxdajaMTXDFCTMYN7309-98-31 10:14:00 Test Item Value Reference Range Interpretation Comments Monocytes # (test code 0.9 See_Comment H [Aut omated message] The = Monocytes #) system which generated this result tra nsmitted reference range : <=0.8. The reference r jessika was not used to int erpret this result as normal/abnormal . [facility] HospitalRrvptevLIVHJPEKLN8468-13-58 10:14:00 Test Item Value Reference Range Interpretation Comments Segs (test code = Segs) 48.3 45.0-75.0 N [facility] HospitalWmsooslDHSKMFAEFW4038-17-16 10:14:00 Test Item Value Reference Range Interpretation Comments Lymphocytes (test code = Lymphocytes) 34.9 20.0-40.0 N [facility] HospitalQdvnkyhNSBFHQHBWJ9112-53-74 10:14:00 Test Item Value Reference Range Interpretation Comments Macrocyte (test code = 1+ *ABN*(09/25/2011 A Macrocyte) 05:14:00) [facility] HospitalJvcuhjpBDRTAYRYLT6269-40-27 10:14:00 Test Item Value Reference Range Interpretation Comments Eosinophils # (test code 0.2 See_Comment N [A utomated message] The = Eosinophils #) system whic h generated this result tra nsmitted reference range : <=0.5. The reference r jessika was not used to int erpret this result as normal/abnormal . [facility] HospitalJptusnmVYTLBXVLOP2998-60-52 10:14:00 Test Item Value Reference Range Interpretation Comments Monocytes (test code = Monocytes) 13.2 2.0-12.0 H [facility] HospitalQcxmfciGRJYXJLHQV1731-26-43 10:14:00 Test Item Value Reference Range Interpretation Comments Basophils # (test code 0.0 See_Comment N [Aut omated message] The = Basophils #) system which generated this result tra nsmitted reference range : <=0.2. The reference r jessika was not used to int erpret this result as normal/abnormal . [facility] HospitalFvfvgldCJRHTXRXCC7923-92-42 10:14:00 Test Item Value Reference Range Interpretation Comments MPV (test code = MPV) 9.1 7.4-10.4 N [facility] HospitalZaeufstOODMPXGUKI7363-95-70 10:14:00 Test Item Value Reference Range Interpretation Comments Platelet (test code = Platelet) 183 133-450 N [facility] HospitalNohbaowWUNNDCLAMI2122-69-70 10:14:00 Test Item Value Reference Range Interpretation Comments RDW (test code = RDW) 14.3 11.5-14.5 N [facility] HospitalIljixicHYJQTCHDVP7697-77-11 10:14:00 Test Item Value Reference Range Interpretation Comments MCHC (test code = MCHC) 34.1 32.0-36.0 N [facility] HospitalYechyccESECFLTKEN6094-16-95 10:14:00 Test Item Value Reference Range Interpretation Comments Hct (test code = Hct) 42.1 42.0-54.0 N [facility] HospitalDhrhudbBDQWUURQUH4455-39-09 10:14:00 Test Item Value Reference Range Interpretation Comments Hgb (test code = Hgb) 14.4 14.0-18.0 N [facility] HospitalFptuwpuYKGPQQGHNT0891-67-72 10:14:00 Test Item Value Reference Range Interpretation Comments WBC (test code = WBC) 6.4 3.7-10.4 N [facility] HospitalUahizjbVVCFAOBRFY4084-16-75 10:14:00 Test Item Value Reference Range Interpretation Comments MCV (test code = MCV) 99.3 80.0-94.0 H [facility] HospitalGrmwzenKLPVVOIYJN2340-15-76 10:14:00 Test Item Value Reference Range Interpretation Comments RBC (test code = RBC) 4.24 4.70-6.10 L [facility] HospitalYwblfpmFIXJYHKGTH3335-98-75 10:14:00 Test Item Value Reference Range Interpretation Comments MCH (test code = MCH) 33.9 pg 27.0-31.0 H [facility] CenterAxsduelLKUDKCFGE1149-65-64 10:14:00 Test Item Value Reference Range Interpretation Comments CO2 (test code = CO2) 30 24-32 N [facility] CenterJigyyzjSXSGNIWME8888-17-99 10:14:00 Test Item Value Reference Range Interpretation Comments Calcium Lvl (test code = Calcium Lvl) 9.0 8.5-10.5 N [facility] CenterHgxcwsaZPLEWQGPQ7576-92-91 10:14:00 Test Item Value Reference Range Interpretation Comments Glucose Lvl (test code = Glucose Lvl) 86 70-99 N [facility] CenterNijegafSDKDFZHKN4114-72-49 10:14:00 Test Item Value Reference Range Interpretation Comments Potassium Lvl (test code = Potassium 4.4 3.5-5.1 N Lvl) [facility] CenterQcueyosFGJDXSHYH9397-06-14 10:14:00 Test Item Value Reference Range Interpretation Comments Chloride Lvl (test code = Chloride Lvl) 107 95-109 N [facility] CenterRngwqieCTLSHQYLJ2709-19-55 10:14:00 Test Item Value Reference Range Interpretation Comments BUN (test code = BUN) 13 7-22 N [facility] CenterLphfjflVTLRYZFQM5260-25-76 10:14:00 Test Item Value Reference Range Interpretation Comments Creatinine Lvl (test code = Creatinine 0.7 0.5-1.4 N Lvl) [facility] CenterMfeqgafXNNCIJCWT2676-42-35 10:14:00 Test Item Value Reference Range Interpretation Comments Sodium Lvl (test code = Sodium Lvl) 144 135-145 N [facility] CenterCtbhqrpYHUHJYBSD9859-67-35 10:14:00 Test Item Value Reference Range Interpretation Comments AGAP (test code = AGAP) 11.4 10.0-20.0 N [facility] HospitalUenptndTVKVXMKUEE2810-50-14 10:14:00 Test Item Value Reference Range Interpretation Comments Basophils (test code = 0.5 See_Comment N [Aut omated message] The Basophils) system which ge nerated this result tra nsmitted reference range : <=1.0. The reference r jessika was not used to int erpret this result as normal/abnormal . [facility] HospitalZoccachYZJGHXZMZL6134-50-48 10:14:00 Test Item Value Reference Range Interpretation Comments Eosinophils (test code = 3.1 See_Comment N [A utomated message] The Eosinophils) system which ge nerated this result tra nsmitted reference range : <=4.0. The reference r jessika was not used to int erpret this result as normal/abnormal . [facility] HospitalYrrkaszSXRKXKUDFQ3499-81-41 10:14:00 Test Item Value Reference Range Interpretation Comments Segs-Bands # (test code = Segs-Bands #) 3.1 1.5-8.1 N [facility] HospitalAjypkegQBDIHTXCAF3828-37-87 10:14:00 Test Item Value Reference Range Interpretation Comments Lymphocytes # (test code = Lymphocytes 2.3 1.0-5.5 N #) [facility] HospitalVltxfdxRFHXHWBWVL5415-29-12 10:14:00 Test Item Value Reference Range Interpretation Comments Monocytes # (test code 0.9 See_Comment H [Aut omated message] The = Monocytes #) system which generated this result tra nsmitted reference range : <=0.8. The reference r jessika was not used to int erpret this result as normal/abnormal . [facility] HospitalBbpdixbCIZUJMSDQO9068-46-02 10:14:00 Test Item Value Reference Range Interpretation Comments Segs (test code = Segs) 48.3 45.0-75.0 N [facility] HospitalHxnesozNABUABOVXY6677-50-96 10:14:00 Test Item Value Reference Range Interpretation Comments Lymphocytes (test code = Lymphocytes) 34.9 20.0-40.0 N [facility] HospitalYbxsdozHTYDCKTUBQ6035-41-57 10:14:00 Test Item Value Reference Range Interpretation Comments Macrocyte (test code = 1+ *ABN*(09/25/2011 A Macrocyte) 05:14:00) [facility] HospitalDlswipxROZMEPWNEC7057-27-40 10:14:00 Test Item Value Reference Range Interpretation Comments Eosinophils # (test code 0.2 See_Comment N [A utomated message] The = Eosinophils #) system whic h generated this result tra nsmitted reference range : <=0.5. The reference r jessika was not used to int erpret this result as normal/abnormal . [facility] HospitalKtmwslxTSPBBKCMXW6228-09-06 10:14:00 Test Item Value Reference Range Interpretation Comments Monocytes (test code = Monocytes) 13.2 2.0-12.0 H [facility] HospitalUhrgdibAPLWXYPYLR9226-08-12 10:14:00 Test Item Value Reference Range Interpretation Comments Basophils # (test code 0.0 See_Comment N [Aut omated message] The = Basophils #) system which generated this result tra nsmitted reference range : <=0.2. The reference r jessika was not used to int erpret this result as normal/abnormal . [facility] HospitalUtartqcMKWVMDPCST2224-50-89 10:14:00 Test Item Value Reference Range Interpretation Comments MPV (test code = MPV) 9.1 7.4-10.4 N [facility] HospitalFisohpqHTBUXEZUNF4913-62-21 10:14:00 Test Item Value Reference Range Interpretation Comments Platelet (test code = Platelet) 183 133-450 N [facility] HospitalNyoengjNVQINDJKKT3370-62-99 10:14:00 Test Item Value Reference Range Interpretation Comments RDW (test code = RDW) 14.3 11.5-14.5 N [facility] HospitalYjepylhSMRHQMBPAN2573-64-75 10:14:00 Test Item Value Reference Range Interpretation Comments MCHC (test code = MCHC) 34.1 32.0-36.0 N [facility] HospitalSsjqejiFFXFEGFLHM8591-42-41 10:14:00 Test Item Value Reference Range Interpretation Comments Hct (test code = Hct) 42.1 42.0-54.0 N [facility] HospitalJyaavopGCCKQJRDKV0596-71-52 10:14:00 Test Item Value Reference Range Interpretation Comments Hgb (test code = Hgb) 14.4 14.0-18.0 N [facility] HospitalDahemseBMGJZPYYEQ7143-70-13 10:14:00 Test Item Value Reference Range Interpretation Comments WBC (test code = WBC) 6.4 3.7-10.4 N [facility] HospitalVouvfjiVNGSXZSEFA2724-69-07 10:14:00 Test Item Value Reference Range Interpretation Comments MCV (test code = MCV) 99.3 80.0-94.0 H [facility] HospitalXsqrzimHPVEHTASRL8795-58-16 10:14:00 Test Item Value Reference Range Interpretation Comments RBC (test code = RBC) 4.24 4.70-6.10 L [facility] HospitalKnrzsskAKGEYCJJUQ7203-45-47 10:14:00 Test Item Value Reference Range Interpretation Comments MCH (test code = MCH) 33.9 pg 27.0-31.0 H [facility] CenterQxiebylDGOARQRZD8652-30-01 10:14:00 Test Item Value Reference Range Interpretation Comments CO2 (test code = CO2) 30 24-32 N [facility] CenterGzrxgopKONOUQSBH6676-75-61 10:14:00 Test Item Value Reference Range Interpretation Comments Calcium Lvl (test code = Calcium Lvl) 9.0 8.5-10.5 N [facility] CenterBizksflEVGDNZUEQ5694-58-24 10:14:00 Test Item Value Reference Range Interpretation Comments Glucose Lvl (test code = Glucose Lvl) 86 70-99 N [facility] CenterXjuygrbYSCNAVJFN5994-51-54 10:14:00 Test Item Value Reference Range Interpretation Comments Potassium Lvl (test code = Potassium 4.4 3.5-5.1 N Lvl) [facility] CenterOaggcnxLNJWHBGZD1587-80-18 10:14:00 Test Item Value Reference Range Interpretation Comments Chloride Lvl (test code = Chloride Lvl) 107 95-109 N [facility] CenterGerszxyJGBRALOIX1102-16-88 10:14:00 Test Item Value Reference Range Interpretation Comments BUN (test code = BUN) 13 7-22 N [facility] CenterKhhfneeKWQGYWCCU4438-00-70 10:14:00 Test Item Value Reference Range Interpretation Comments Creatinine Lvl (test code = Creatinine 0.7 0.5-1.4 N Lvl) [facility] CenterVciditgLNLZXFFEM2597-73-51 10:14:00 Test Item Value Reference Range Interpretation Comments Sodium Lvl (test code = Sodium Lvl) 144 135-145 N [facility] CenterXovpmxeTEOGIVRRK1261-39-06 10:14:00 Test Item Value Reference Range Interpretation Comments AGAP (test code = AGAP) 11.4 10.0-20.0 N [facility] HospitalSfqrufnRIWBHEIXUR8195-25-76 10:14:00 Test Item Value Reference Range Interpretation Comments Basophils (test code = 0.5 See_Comment N [Aut omated message] The Basophils) system which ge nerated this result tra nsmitted reference range : <=1.0. The reference r jessika was not used to int erpret this result as normal/abnormal . [facility] HospitalBdxehjiYRGHEDZQKX8515-22-78 10:14:00 Test Item Value Reference Range Interpretation Comments Eosinophils (test code = 3.1 See_Comment N [A utomated message] The Eosinophils) system which ge nerated this result tra nsmitted reference range : <=4.0. The reference r jessika was not used to int erpret this result as normal/abnormal . [facility] HospitalLaeietoTUCAWFCPPN3005-01-19 10:14:00 Test Item Value Reference Range Interpretation Comments Segs-Bands # (test code = Segs-Bands #) 3.1 1.5-8.1 N [facility] HospitalIjdiiwtJUHITSAHYD9114-71-95 10:14:00 Test Item Value Reference Range Interpretation Comments Lymphocytes # (test code = Lymphocytes 2.3 1.0-5.5 N #) [facility] HospitalIqgrfoiMZRPGBFNAL7223-02-64 10:14:00 Test Item Value Reference Range Interpretation Comments Monocytes # (test code 0.9 See_Comment H [Aut omated message] The = Monocytes #) system which generated this result tra nsmitted reference range : <=0.8. The reference r jessika was not used to int erpret this result as normal/abnormal . [facility] HospitalGckdadcFJNOVZXEDM8421-81-54 10:14:00 Test Item Value Reference Range Interpretation Comments Segs (test code = Segs) 48.3 45.0-75.0 N [facility] HospitalElgnqayCJEJSWARVB6771-51-68 10:14:00 Test Item Value Reference Range Interpretation Comments Lymphocytes (test code = Lymphocytes) 34.9 20.0-40.0 N [facility] HospitalEqbdkrgQOKYVEZSPD8730-30-76 10:14:00 Test Item Value Reference Range Interpretation Comments Macrocyte (test code = 1+ *ABN*(09/25/2011 A Macrocyte) 05:14:00) [facility] HospitalMtjifumGEFTJWKSSC7550-47-77 10:14:00 Test Item Value Reference Range Interpretation Comments Eosinophils # (test code 0.2 See_Comment N [A utomated message] The = Eosinophils #) system whic h generated this result tra nsmitted reference range : <=0.5. The reference r jessika was not used to int erpret this result as normal/abnormal . [facility] HospitalWmvumgxWVTTYJKQTX2751-96-42 10:14:00 Test Item Value Reference Range Interpretation Comments Monocytes (test code = Monocytes) 13.2 2.0-12.0 H [facility] HospitalAuwqahjVNCIJXLENY0359-08-04 10:14:00 Test Item Value Reference Range Interpretation Comments Basophils # (test code 0.0 See_Comment N [Aut omated message] The = Basophils #) system which generated this result tra nsmitted reference range : <=0.2. The reference r jessika was not used to int erpret this result as normal/abnormal . [facility] HospitalRxogzhtCHKHFPUPXX7196-79-14 10:14:00 Test Item Value Reference Range Interpretation Comments MPV (test code = MPV) 9.1 7.4-10.4 N [facility] HospitalDreyapoCFAGDVAXKU9077-17-08 10:14:00 Test Item Value Reference Range Interpretation Comments Platelet (test code = Platelet) 183 133-450 N [facility] HospitalVsjvnhqWHKNKPCIGE6089-50-69 10:14:00 Test Item Value Reference Range Interpretation Comments RDW (test code = RDW) 14.3 11.5-14.5 N [facility] HospitalSxdenblRMIURTAPXU7857-14-35 10:14:00 Test Item Value Reference Range Interpretation Comments MCHC (test code = MCHC) 34.1 32.0-36.0 N [facility] HospitalQwgqyebVDEWJZFQOI5944-60-32 10:14:00 Test Item Value Reference Range Interpretation Comments Hct (test code = Hct) 42.1 42.0-54.0 N [facility] HospitalAnspuwpJJTBIYUUYC3857-84-93 10:14:00 Test Item Value Reference Range Interpretation Comments Hgb (test code = Hgb) 14.4 14.0-18.0 N [facility] HospitalMzmtxilSGVWHUWVSH3294-29-40 10:14:00 Test Item Value Reference Range Interpretation Comments WBC (test code = WBC) 6.4 3.7-10.4 N [facility] HospitalZohczsvSQTRBXAEYW9438-52-61 10:14:00 Test Item Value Reference Range Interpretation Comments MCV (test code = MCV) 99.3 80.0-94.0 H [facility] HospitalCmwpnqhZUXRWZFECW9964-13-01 10:14:00 Test Item Value Reference Range Interpretation Comments RBC (test code = RBC) 4.24 4.70-6.10 L [facility] HospitalEgboqbiEWDPXMMAGM6980-53-87 10:14:00 Test Item Value Reference Range Interpretation Comments MCH (test code = MCH) 33.9 pg 27.0-31.0 [facility]CximxkhGAEDRYAOT3680-79-49 10:14:00 Test Item Value Reference Range Interpretation Comments CO2 (test code = CO2) 30 24-32 N [facility] CenterVzlrjmhNHSYKLTOP3972-10-72 09:04:00 Test Item Value Reference Range Interpretation Comments Calcium Lvl (test code = Calcium Lvl) 9.0 8.5-10.5 N [facility] CenterRnhtuvyFCVJQJZAB0908-33-55 09:04:00 Test Item Value Reference Range Interpretation Comments AGAP (test code = AGAP) 13.1 10.0-20.0 N [facility] HospitalOtjgpjvLRATGZKWUD8646-53-28 09:04:00 Test Item Value Reference Range Interpretation Comments Macrocyte (test code = 1+ *ABN*(09/18/2011 A Macrocyte) 04:04:00) [facility] HospitalNlgygbxHWIDXKKIVG3905-95-60 09:04:00 Test Item Value Reference Range Interpretation Comments Monocytes # (test code 0.9 See_Comment H [Aut omated message] The = Monocytes #) system which generated this result tra nsmitted reference range : <=0.8. The reference r jessika was not used to int erpret this result as normal/abnormal . [facility] HospitalDozshesIZDZZGMYQX9146-94-35 09:04:00 Test Item Value Reference Range Interpretation Comments Lymphocytes # (test code = Lymphocytes 2.1 1.0-5.5 N #) [facility] HospitalZryvunaZPDGTRXRVZ1535-21-52 09:04:00 Test Item Value Reference Range Interpretation Comments Segs (test code = Segs) 54.6 45.0-75.0 N [facility] HospitalNsbaeabMOBCBLPYXX5676-06-39 09:04:00 Test Item Value Reference Range Interpretation Comments Eosinophils # (test code 0.2 See_Comment N [A utomated message] The = Eosinophils #) system whic h generated this result tra nsmitted reference range : <=0.5. The reference r jessika was not used to int erpret this result as normal/abnormal . [facility] HospitalBckxzsnUAQCZKYEEE6347-22-81 09:04:00 Test Item Value Reference Range Interpretation Comments Eosinophils (test code = 2.3 See_Comment N [A utomated message] The Eosinophils) system which ge nerated this result tra nsmitted reference range : <=4.0. The reference r jessika was not used to int erpret this result as normal/abnormal . [facility] HospitalRdkhamnFDZRUBRGBB1000-86-39 09:04:00 Test Item Value Reference Range Interpretation Comments Monocytes (test code = Monocytes) 12.9 2.0-12.0 H [facility] HospitalKojzvnhGKBBSDRDOO6878-37-79 09:04:00 Test Item Value Reference Range Interpretation Comments Lymphocytes (test code = Lymphocytes) 29.9 20.0-40.0 N [facility] HospitalLfqcrsuJMAGPMGADI8857-35-53 09:04:00 Test Item Value Reference Range Interpretation Comments Basophils (test code = 0.3 See_Comment N [Aut omated message] The Basophils) system which ge nerated this result tra nsmitted reference range : <=1.0. The reference r jessika was not used to int erpret this result as normal/abnormal . [facility] HospitalJvqoroqXWQFYKDFUO9644-01-30 09:04:00 Test Item Value Reference Range Interpretation Comments Basophils # (test code 0.0 See_Comment N [Aut omated message] The = Basophils #) system which generated this result tra nsmitted reference range : <=0.2. The reference r jessika was not used to int erpret this result as normal/abnormal . [facility] HospitalOpzgbukKMSDWAYRKS1624-00-43 09:04:00 Test Item Value Reference Range Interpretation Comments Segs-Bands # (test code = Segs-Bands #) 3.8 1.5-8.1 N [facility] HospitalHlhyjyrZCURKMNEMO9818-68-18 09:04:00 Test Item Value Reference Range Interpretation Comments Hct (test code = Hct) 43.5 42.0-54.0 N [facility] HospitalMpuemueMPFPWGMNOR3554-17-21 09:04:00 Test Item Value Reference Range Interpretation Comments MCV (test code = MCV) 99.4 80.0-94.0 H [facility] HospitalNjttfphFQQEGKTLVR3358-36-83 09:04:00 Test Item Value Reference Range Interpretation Comments Hgb (test code = Hgb) 14.8 14.0-18.0 N [facility] HospitalCzytkxpZXBWRKALHX3717-78-70 09:04:00 Test Item Value Reference Range Interpretation Comments RBC (test code = RBC) 4.37 4.70-6.10 L [facility] HospitalGwrocjzNLCRAYHILR5915-42-52 09:04:00 Test Item Value Reference Range Interpretation Comments WBC (test code = WBC) 6.9 3.7-10.4 N [facility] HospitalInybgeaEIPSRYQQUL5608-07-73 09:04:00 Test Item Value Reference Range Interpretation Comments Platelet (test code = Platelet) 178 133-450 N [facility] HospitalLjkzsrfHCLPNCVPEL9457-28-20 09:04:00 Test Item Value Reference Range Interpretation Comments MCHC (test code = MCHC) 34.2 32.0-36.0 N [facility] HospitalSnsjdahFVWHOPWTGJ3573-22-87 09:04:00 Test Item Value Reference Range Interpretation Comments MPV (test code = MPV) 9.1 7.4-10.4 N [facility] HospitalAnwdmwbQLMURKXXDH9729-16-76 09:04:00 Test Item Value Reference Range Interpretation Comments RDW (test code = RDW) 13.9 11.5-14.5 N [facility] HospitalAgkczxcSVMFQUZNLZ2366-91-86 09:04:00 Test Item Value Reference Range Interpretation Comments MCH (test code = MCH) 33.9 pg 27.0-31.0 H [facility] CenterNubqfbhGAELRAUGF8668-77-96 09:04:00 Test Item Value Reference Range Interpretation Comments Glucose Lvl (test code = Glucose Lvl) 95 70-99 N [facility] CenterJvbikcrARWVDYRVX2774-04-05 09:04:00 Test Item Value Reference Range Interpretation Comments BUN (test code = BUN) 9 7-22 N [facility] CenterHsfgiplSMDMMPGUL7477-22-44 09:04:00 Test Item Value Reference Range Interpretation Comments Creatinine Lvl (test code = Creatinine 0.6 0.5-1.4 N Lvl) [facility] CenterAxqzivvOQTVACLNO1545-86-30 09:04:00 Test Item Value Reference Range Interpretation Comments Sodium Lvl (test code = Sodium Lvl) 141 135-145 N [facility] CenterDlovnteDCMMUFSTY3863-49-05 09:04:00 Test Item Value Reference Range Interpretation Comments Potassium Lvl (test code = Potassium 4.1 3.5-5.1 N Lvl) [facility] CenterFymxlbrPIYQHTKOC1191-26-78 09:04:00 Test Item Value Reference Range Interpretation Comments Chloride Lvl (test code = Chloride Lvl) 107 95-109 N [facility] CenterUdyhtylTTFDWURQP0840-41-25 09:04:00 Test Item Value Reference Range Interpretation Comments CO2 (test code = CO2) 25 24-32 N [facility] CenterQwcqmlwJSUVKDMFA0264-61-62 09:04:00 Test Item Value Reference Range Interpretation Comments Calcium Lvl (test code = Calcium Lvl) 9.0 8.5-10.5 N [facility] CenterTfyyhtcYNNTNMVOW2750-89-81 09:04:00 Test Item Value Reference Range Interpretation Comments AGAP (test code = AGAP) 13.1 10.0-20.0 N [facility] HospitalXytyiqoPZZRVZJEAM8433-59-85 09:04:00 Test Item Value Reference Range Interpretation Comments Macrocyte (test code = 1+ *ABN*(09/18/2011 A Macrocyte) 04:04:00) [facility] HospitalPpdvajkHXOTTRLNOC3509-94-91 09:04:00 Test Item Value Reference Range Interpretation Comments Monocytes # (test code 0.9 See_Comment H [Aut omated message] The = Monocytes #) system which generated this result tra nsmitted reference range : <=0.8. The reference r jessika was not used to int erpret this result as normal/abnormal . [facility] HospitalGjnoiukFJNHDQUUTL7400-52-56 09:04:00 Test Item Value Reference Range Interpretation Comments Lymphocytes # (test code = Lymphocytes 2.1 1.0-5.5 N #) [facility] HospitalRkmvwbfXOILZJTRLO0739-11-76 09:04:00 Test Item Value Reference Range Interpretation Comments Segs (test code = Segs) 54.6 45.0-75.0 N [facility] HospitalHlzjdqzQZBPAMQOQB6808-46-46 09:04:00 Test Item Value Reference Range Interpretation Comments Eosinophils # (test code 0.2 See_Comment N [A utomated message] The = Eosinophils #) system whic h generated this result tra nsmitted reference range : <=0.5. The reference r jessika was not used to int erpret this result as normal/abnormal . [facility] HospitalHwknactWKRGELGHNH5761-62-76 09:04:00 Test Item Value Reference Range Interpretation Comments Eosinophils (test code = 2.3 See_Comment N [A utomated message] The Eosinophils) system which ge nerated this result tra nsmitted reference range : <=4.0. The reference r jessika was not used to int erpret this result as normal/abnormal . [facility] HospitalQbtzfvcKGQTBZZWQE5282-82-27 09:04:00 Test Item Value Reference Range Interpretation Comments Monocytes (test code = Monocytes) 12.9 2.0-12.0 H [facility] HospitalAiacoygHIXVHZEXCF6476-52-11 09:04:00 Test Item Value Reference Range Interpretation Comments Lymphocytes (test code = Lymphocytes) 29.9 20.0-40.0 N [facility] HospitalOqmzwayBIPQYBQCKS3049-54-88 09:04:00 Test Item Value Reference Range Interpretation Comments Basophils (test code = 0.3 See_Comment N [Aut omated message] The Basophils) system which ge nerated this result tra nsmitted reference range : <=1.0. The reference r jessika was not used to int erpret this result as normal/abnormal . [facility] HospitalTbrwtetFTDOFWZHSF3627-63-02 09:04:00 Test Item Value Reference Range Interpretation Comments Basophils # (test code 0.0 See_Comment N [Aut omated message] The = Basophils #) system which generated this result tra nsmitted reference range : <=0.2. The reference r jessika was not used to int erpret this result as normal/abnormal . [facility] HospitalJcukpnoHIZTOFXBEK7745-62-95 09:04:00 Test Item Value Reference Range Interpretation Comments Segs-Bands # (test code = Segs-Bands #) 3.8 1.5-8.1 N [facility] HospitalZmpdndmQREPRZTMKO3573-67-54 09:04:00 Test Item Value Reference Range Interpretation Comments Hct (test code = Hct) 43.5 42.0-54.0 N [facility] HospitalTczarmuCGCPKCPLBE0965-99-33 09:04:00 Test Item Value Reference Range Interpretation Comments MCV (test code = MCV) 99.4 80.0-94.0 H [facility] HospitalQfgjgkmRLZWEKEYON2861-60-58 09:04:00 Test Item Value Reference Range Interpretation Comments Hgb (test code = Hgb) 14.8 14.0-18.0 N [facility] HospitalGoutllkXDSNIHFGXT0782-52-78 09:04:00 Test Item Value Reference Range Interpretation Comments RBC (test code = RBC) 4.37 4.70-6.10 L [facility] HospitalGwzibrcDIUCLZSSDI1502-01-16 09:04:00 Test Item Value Reference Range Interpretation Comments WBC (test code = WBC) 6.9 3.7-10.4 N [facility] HospitalSnhqynaQOBUQXTIBU7065-31-66 09:04:00 Test Item Value Reference Range Interpretation Comments Platelet (test code = Platelet) 178 133-450 N [facility] HospitalSxfprsjJYZWIHPCNF2124-20-85 09:04:00 Test Item Value Reference Range Interpretation Comments MCHC (test code = MCHC) 34.2 32.0-36.0 N [facility] HospitalCwmvgsvWIMGWHBGTO8556-77-32 09:04:00 Test Item Value Reference Range Interpretation Comments MPV (test code = MPV) 9.1 7.4-10.4 N [facility] HospitalXuvyrlpTKEWISGZWD6863-85-49 09:04:00 Test Item Value Reference Range Interpretation Comments RDW (test code = RDW) 13.9 11.5-14.5 N [facility] HospitalWgrgymmCJCDZGVAXK2106-39-61 09:04:00 Test Item Value Reference Range Interpretation Comments MCH (test code = MCH) 33.9 pg 27.0-31.0 H [facility] CenterNydhtqgAYDYPEHEW5407-69-48 09:04:00 Test Item Value Reference Range Interpretation Comments Glucose Lvl (test code = Glucose Lvl) 95 70-99 N [facility] CenterIshpubtNUSISOJGY8012-24-91 09:04:00 Test Item Value Reference Range Interpretation Comments BUN (test code = BUN) 9 7-22 N [facility] CenterWindbykYLXTCFJXY0420-57-69 09:04:00 Test Item Value Reference Range Interpretation Comments Creatinine Lvl (test code = Creatinine 0.6 0.5-1.4 N Lvl) [facility] CenterGoeoslyTWUOQSFVI7969-66-22 09:04:00 Test Item Value Reference Range Interpretation Comments Sodium Lvl (test code = Sodium Lvl) 141 135-145 N [facility] CenterBjmziboQHCBGJAOT8650-56-51 09:04:00 Test Item Value Reference Range Interpretation Comments Potassium Lvl (test code = Potassium 4.1 3.5-5.1 N Lvl) [facility] CenterYjsqflkESHXTIPWP0411-32-95 09:04:00 Test Item Value Reference Range Interpretation Comments Chloride Lvl (test code = Chloride Lvl) 107 95-109 N [facility] CenterIvssxqqEYELYUCTL7056-95-56 09:04:00 Test Item Value Reference Range Interpretation Comments CO2 (test code = CO2) 25 24-32 N [facility] CenterHcafeubODROWTSRH7018-09-17 09:04:00 Test Item Value Reference Range Interpretation Comments Calcium Lvl (test code = Calcium Lvl) 9.0 8.5-10.5 N [facility] CenterPfnojnwHMCYCYLUL6224-57-28 09:04:00 Test Item Value Reference Range Interpretation Comments AGAP (test code = AGAP) 13.1 10.0-20.0 N [facility] HospitalIayrimdKCAKOCTUEL4991-27-09 09:04:00 Test Item Value Reference Range Interpretation Comments Macrocyte (test code = 1+ *ABN*(09/18/2011 A Macrocyte) 04:04:00) [facility] HospitalCsmuuknEULPSHSXZG3332-28-94 09:04:00 Test Item Value Reference Range Interpretation Comments Monocytes # (test code 0.9 See_Comment H [Aut omated message] The = Monocytes #) system which generated this result tra nsmitted reference range : <=0.8. The reference r jessika was not used to int erpret this result as normal/abnormal . [facility] HospitalHnxkdveCMALNGODQB5354-07-27 09:04:00 Test Item Value Reference Range Interpretation Comments Lymphocytes # (test code = Lymphocytes 2.1 1.0-5.5 N #) [facility] HospitalUbjjopeDQWKTEBJQF7696-11-32 09:04:00 Test Item Value Reference Range Interpretation Comments Segs (test code = Segs) 54.6 45.0-75.0 N [facility] HospitalOabctewPOXOXPGOKC8871-45-68 09:04:00 Test Item Value Reference Range Interpretation Comments Eosinophils # (test code 0.2 See_Comment N [A utomated message] The = Eosinophils #) system whic h generated this result tra nsmitted reference range : <=0.5. The reference r jessika was not used to int erpret this result as normal/abnormal . [facility] HospitalMyvhkgzDRACPNDGRX4592-46-55 09:04:00 Test Item Value Reference Range Interpretation Comments Eosinophils (test code = 2.3 See_Comment N [A utomated message] The Eosinophils) system which ge nerated this result tra nsmitted reference range : <=4.0. The reference r jessika was not used to int erpret this result as normal/abnormal . [facility] HospitalLacfbvaLATNTYJYID5042-77-74 09:04:00 Test Item Value Reference Range Interpretation Comments Monocytes (test code = Monocytes) 12.9 2.0-12.0 H [facility] HospitalStyowuoWSFJFXPNED3798-94-89 09:04:00 Test Item Value Reference Range Interpretation Comments Lymphocytes (test code = Lymphocytes) 29.9 20.0-40.0 N [facility] HospitalWqiaoygRIAKYIZCVM0559-88-24 09:04:00 Test Item Value Reference Range Interpretation Comments Basophils (test code = 0.3 See_Comment N [Aut omated message] The Basophils) system which ge nerated this result tra nsmitted reference range : <=1.0. The reference r jessika was not used to int erpret this result as normal/abnormal . [facility] HospitalIvecbeeUYOVFZFFKZ7335-85-83 09:04:00 Test Item Value Reference Range Interpretation Comments Basophils # (test code 0.0 See_Comment N [Aut omated message] The = Basophils #) system which generated this result tra nsmitted reference range : <=0.2. The reference r jessika was not used to int erpret this result as normal/abnormal . [facility] HospitalDmzzfkwDKMFBAMDEE7625-33-47 09:04:00 Test Item Value Reference Range Interpretation Comments Segs-Bands # (test code = Segs-Bands #) 3.8 1.5-8.1 N [facility] HospitalAorodsaBFRXMGYOSD2271-27-24 09:04:00 Test Item Value Reference Range Interpretation Comments Hct (test code = Hct) 43.5 42.0-54.0 N [facility] HospitalDbepgvjLROZWLGPHR9327-38-37 09:04:00 Test Item Value Reference Range Interpretation Comments MCV (test code = MCV) 99.4 80.0-94.0 H [facility] HospitalObcnyabYESLQSCXSD5288-18-87 09:04:00 Test Item Value Reference Range Interpretation Comments Hgb (test code = Hgb) 14.8 14.0-18.0 N [facility] HospitalCkrxxnxUYFTIWHGQF0857-86-31 09:04:00 Test Item Value Reference Range Interpretation Comments RBC (test code = RBC) 4.37 4.70-6.10 L [facility] HospitalVichrquLCRTLMQPZY6565-53-01 09:04:00 Test Item Value Reference Range Interpretation Comments WBC (test code = WBC) 6.9 3.7-10.4 N [facility] HospitalBnfkkceIFVGNMSEWL1212-68-59 09:04:00 Test Item Value Reference Range Interpretation Comments Platelet (test code = Platelet) 178 133-450 N [facility] HospitalFogrcnaRDXZVEYFKX5477-38-70 09:04:00 Test Item Value Reference Range Interpretation Comments MCHC (test code = MCHC) 34.2 32.0-36.0 N [facility] HospitalDcannrfWVGOFGWIRA5981-45-89 09:04:00 Test Item Value Reference Range Interpretation Comments MPV (test code = MPV) 9.1 7.4-10.4 N [facility] HospitalLqlknwtUEHNTGAHNQ8150-74-75 09:04:00 Test Item Value Reference Range Interpretation Comments RDW (test code = RDW) 13.9 11.5-14.5 N [facility] HospitalWprcxxhJCVONXZDRD6416-19-63 09:04:00 Test Item Value Reference Range Interpretation Comments MCH (test code = MCH) 33.9 pg 27.0-31.0 H [facility] CenterDgguhfqOZAJYWGAH9311-72-85 09:04:00 Test Item Value Reference Range Interpretation Comments Glucose Lvl (test code = Glucose Lvl) 95 70-99 N [facility] CenterEogkljyQQWLBBEEJ3807-22-79 09:04:00 Test Item Value Reference Range Interpretation Comments BUN (test code = BUN) 9 7-22 N [facility] CenterQizoukiSEOEIRARJ3639-21-74 09:04:00 Test Item Value Reference Range Interpretation Comments Creatinine Lvl (test code = Creatinine 0.6 0.5-1.4 N Lvl) [facility] CenterVshwzgrWJQDKGUFJ8897-56-05 09:04:00 Test Item Value Reference Range Interpretation Comments Sodium Lvl (test code = Sodium Lvl) 141 135-145 N [facility] CenterArweeczIJTIWPJEX2317-91-80 09:04:00 Test Item Value Reference Range Interpretation Comments Potassium Lvl (test code = Potassium 4.1 3.5-5.1 N Lvl) [facility] CenterHmgxzsfZPQUIQOGK1178-79-11 09:04:00 Test Item Value Reference Range Interpretation Comments Chloride Lvl (test code = Chloride Lvl) 107 95-109 N [facility] CenterXwljjfwVKEDYPSUN6358-23-27 09:04:00 Test Item Value Reference Range Interpretation Comments CO2 (test code = CO2) 25 24-32 N [facility] CenterGywodfxWSBCOVQES2276-71-48 09:04:00 Test Item Value Reference Range Interpretation Comments CO2 (test code = CO2) 25 24-32 N [facility] CenterHppsfjuSMVNKEBIJ5439-20-22 09:04:00 Test Item Value Reference Range Interpretation Comments Calcium Lvl (test code = Calcium Lvl) 9.0 8.5-10.5 N [facility] CenterUfxmibfDFIPDZIIL2255-48-71 09:04:00 Test Item Value Reference Range Interpretation Comments AGAP (test code = AGAP) 13.1 10.0-20.0 N [facility] HospitalEpvttdkQIFFOANLOR0829-37-93 09:04:00 Test Item Value Reference Range Interpretation Comments Macrocyte (test code = 1+ *ABN*(09/18/2011 A Macrocyte) 04:04:00) [facility] HospitalSuilgylCGAKIMASDV1930-95-01 09:04:00 Test Item Value Reference Range Interpretation Comments Monocytes # (test code 0.9 See_Comment H [Aut omated message] The = Monocytes #) system which generated this result tra nsmitted reference range : <=0.8. The reference r jessika was not used to int erpret this result as normal/abnormal . [facility] HospitalZlvihqeVYUTOCMWCO0661-78-97 09:04:00 Test Item Value Reference Range Interpretation Comments Lymphocytes # (test code = Lymphocytes 2.1 1.0-5.5 N #) [facility] HospitalBifcxuhQCEKKLGNZJ3661-79-15 09:04:00 Test Item Value Reference Range Interpretation Comments Segs (test code = Segs) 54.6 45.0-75.0 N [facility] HospitalTfrbusgFOYZRZWPNM3869-25-80 09:04:00 Test Item Value Reference Range Interpretation Comments Eosinophils # (test code 0.2 See_Comment N [A utomated message] The = Eosinophils #) system whic h generated this result tra nsmitted reference range : <=0.5. The reference r jessika was not used to int erpret this result as normal/abnormal . [facility] HospitalSmfhquqDKMJXJBSEE3284-80-44 09:04:00 Test Item Value Reference Range Interpretation Comments Eosinophils (test code = 2.3 See_Comment N [A utomated message] The Eosinophils) system which ge nerated this result tra nsmitted reference range : <=4.0. The reference r jessika was not used to int erpret this result as normal/abnormal . [facility] HospitalYitygbkXKZJOTGQSZ7376-64-26 09:04:00 Test Item Value Reference Range Interpretation Comments Monocytes (test code = Monocytes) 12.9 2.0-12.0 H [facility] HospitalVsijkltUAZYPGCOKZ5637-19-61 09:04:00 Test Item Value Reference Range Interpretation Comments Lymphocytes (test code = Lymphocytes) 29.9 20.0-40.0 N [facility] HospitalIwqufqbNZGYPLYJVZ9084-59-11 09:04:00 Test Item Value Reference Range Interpretation Comments Basophils (test code = 0.3 See_Comment N [Aut omated message] The Basophils) system which ge nerated this result tra nsmitted reference range : <=1.0. The reference r jessika was not used to int erpret this result as normal/abnormal . [facility] HospitalCvdoxheGAALKJQZHE7369-77-34 09:04:00 Test Item Value Reference Range Interpretation Comments Basophils # (test code 0.0 See_Comment N [Aut omated message] The = Basophils #) system which generated this result tra nsmitted reference range : <=0.2. The reference r jessika was not used to int erpret this result as normal/abnormal . [facility] HospitalSxpurfmSQGVAPKLLE2247-07-34 09:04:00 Test Item Value Reference Range Interpretation Comments Segs-Bands # (test code = Segs-Bands #) 3.8 1.5-8.1 N [facility] HospitalYwpnxdiCITFNVTKFS4612-05-05 09:04:00 Test Item Value Reference Range Interpretation Comments Hct (test code = Hct) 43.5 42.0-54.0 N [facility] HospitalTwjskvqLUFRPEWQNY7530-16-25 09:04:00 Test Item Value Reference Range Interpretation Comments MCV (test code = MCV) 99.4 80.0-94.0 H [facility] HospitalDliwmkhBZXSUFPNRL9817-32-34 09:04:00 Test Item Value Reference Range Interpretation Comments Hgb (test code = Hgb) 14.8 14.0-18.0 N [facility] HospitalJyqmzypJOSONCDQJP1800-75-95 09:04:00 Test Item Value Reference Range Interpretation Comments RBC (test code = RBC) 4.37 4.70-6.10 L [facility] HospitalWdytciqTEVWJBHSOC3391-61-43 09:04:00 Test Item Value Reference Range Interpretation Comments WBC (test code = WBC) 6.9 3.7-10.4 N [facility] HospitalOdoktseABJGWMUPMK4183-10-16 09:04:00 Test Item Value Reference Range Interpretation Comments Platelet (test code = Platelet) 178 133-450 N [facility] HospitalPbpoxaeSESJGIGOLR2221-37-58 09:04:00 Test Item Value Reference Range Interpretation Comments MCHC (test code = MCHC) 34.2 32.0-36.0 N [facility] HospitalXgrprucVFOTMOSREX8351-94-74 09:04:00 Test Item Value Reference Range Interpretation Comments MPV (test code = MPV) 9.1 7.4-10.4 N [facility] HospitalKdhurrrATHIJYRNFA0716-24-63 09:04:00 Test Item Value Reference Range Interpretation Comments RDW (test code = RDW) 13.9 11.5-14.5 N [facility] HospitalRzovwgiITJPWJCOFT9433-58-88 09:04:00 Test Item Value Reference Range Interpretation Comments MCH (test code = MCH) 33.9 pg 27.0-31.0 [facility]MheftmfNWLXHKLOM4403-55-89 09:04:00 Test Item Value Reference Range Interpretation Comments Glucose Lvl (test code = Glucose Lvl) 95 70-99 N [facility] CenterShjhjtbQGCQYLLLV9327-50-74 09:04:00 Test Item Value Reference Range Interpretation Comments BUN (test code = BUN) 9 7-22 N [facility] CenterGmdzbcdBPAQDBCQA8086-03-67 09:04:00 Test Item Value Reference Range Interpretation Comments Creatinine Lvl (test code = Creatinine 0.6 0.5-1.4 N Lvl) [facility] CenterEsevrmyKHAGEOMVP2639-31-39 09:04:00 Test Item Value Reference Range Interpretation Comments Sodium Lvl (test code = Sodium Lvl) 141 135-145 N [facility] CenterUlclvxmBLIKDRTJW9881-70-15 09:04:00 Test Item Value Reference Range Interpretation Comments Potassium Lvl (test code = Potassium 4.1 3.5-5.1 N Lvl) [facility] CenterXqtmyytTKVRUDRCU7056-17-36 09:04:00 Test Item Value Reference Range Interpretation Comments Chloride Lvl (test code = Chloride Lvl) 107 95-109 N [facility] CampusAzvzovuTrsoktqnifrg7976-90-59 14:00:00 Test Item Value Reference Range Interpretation Comments Culture: Urine (test code = Culture: Urine) [facility] CampusCvqqsomXhicennqvngg9677-21-49 14:00:00 Test Item Value Reference Range Interpretation Comments Culture: Urine (test code = Culture: Urine) [facility] CampusQbragbnWcbfqqkopwys1018-12-84 14:00:00 Test Item Value Reference Range Interpretation Comments Culture: Urine (test code = Culture: Urine) [facility] CampusZncyosfXnznkztvplfp7231-27-39 14:00:00 Test Item Value Reference Range Interpretation Comments Culture: Urine (test code = Culture: Urine) [facility]MdfpbrnRZCTBEXLDQ6675-71-54 13:25:00 Test Item Value Reference Range Interpretation Comments UA Urobilinogen (test code *NA*(09/16/2011 0.1-1.0 = UA Urobilinogen) 08:25:00) [facility] HospitalXkigiasTCLRVZOFLP7416-03-21 13:25:00 Test Item Value Reference Range Interpretation Comments UA WBC (test code = no gt See_Comment N [Automa lorie message] The UA WBC) system which ge nerated this result transmit lorie reference range : <=5. The reference range was not used to interpr et this result as asher l/abnormal. [facility] HospitalOwmzpozEFOMPXQPCH7417-65-10 13:25:00 Test Item Value Reference Range Interpretation Comments UA RBC (test code = 1 See_Comment N [Automa lorie message] The UA RBC) system which ge nerated this result transmit lorie reference range : <=2. The reference range was not used to interpr et this result as asher l/abnormal. [facility] HospitalDdhmnscFXVGFAQIGU8001-93-51 13:25:00 Test Item Value Reference Range Interpretation Comments UA Mucus (test code = Few /LPF UA Mucus) *NA*(09/16/2011 08:25:00) [facility] HospitalTmqwnchPDDXXWILVT7060-79-16 13:25:00 Test Item Value Reference Range Interpretation Comments UA Ketones (test code Negative mg/dL = UA Ketones) *NA*(09/16/2011 08:25:00) [facility] HospitalOnoqgohZVNTGZXYKV6870-04-65 13:25:00 Test Item Value Reference Range Interpretation Comments UA Bili (test code = Negative *NA*(09/16/2011 UA Bili) 08:25:00) [facility] HospitalTfinditKKNEYIATRM7766-94-39 13:25:00 Test Item Value Reference Range Interpretation Comments UA Blood (test code = Negative (09/16/2011 N UA Blood) 08:25:00) [facility] HospitalYjuismaXECBWRWWAS8338-72-98 13:25:00 Test Item Value Reference Range Interpretation Comments UA Nitrite (test code Negative (09/16/2011 N = UA Nitrite) 08:25:00) [facility] HospitalGdotohmSWSSHXQNQP9844-30-92 13:25:00 Test Item Value Reference Range Interpretation Comments UA Leuk Est (test Negative (09/16/2011 N code = UA Leuk Est) 08:25:00) [facility] HospitalUzxxcuhOEXUCULYXD1807-25-57 13:25:00 Test Item Value Reference Range Interpretation Comments UA Sq Epi (test code Occasional /LPF = UA Sq Epi) *NA*(09/16/2011 08:25:00) [facility] HospitalMymqynhTAZSSLBFMY1184-84-56 13:25:00 Test Item Value Reference Range Interpretation Comments UA Glucose (test code Negative mg/dL = UA Glucose) *NA*(09/16/2011 08:25:00) [facility] HospitalEcnxbluKWVEVSFXAG0274-95-44 13:25:00 Test Item Value Reference Range Interpretation Comments UA Protein (test code Negative mg/dL N = UA Protein) (09/16/2011 08:25:00) [facility] HospitalCejlteeZBDBABTPIX2112-53-45 13:25:00 Test Item Value Reference Range Interpretation Comments UA Color (test code = Yellow *NA*(09/16/2011 UA Color) 08:25:00) [facility] HospitalUmppjpdUFHAOHKPSE9139-68-85 13:25:00 Test Item Value Reference Range Interpretation Comments UA pH (test code = UA pH) 5.5 5.0-8.0 N [facility] HospitalFtxdinyNUZKWQIAIQ8133-21-04 13:25:00 Test Item Value Reference Range Interpretation Comments UA Spec Grav (test code = UA Spec Grav) 1.017 N [facility] HospitalVwghgvkSFORUVCFHH8307-69-86 13:25:00 Test Item Value Reference Range Interpretation Comments UA Turbidity (test code = Clear (09/16/2011 N UA Turbidity) 08:25:00) [facility] HospitalEfisxohFXTXDPCESJ8458-33-93 13:25:00 Test Item Value Reference Range Interpretation Comments UA Urobilinogen (test code *NA*(09/16/2011 0.1-1.0 = UA Urobilinogen) 08:25:00) [facility] CenterBkddsorEFIKVZLUPY7577-02-55 13:25:00 Test Item Value Reference Range Interpretation Comments UA WBC (test code = no gt See_Comment N [Automa lorie message] The UA WBC) system which ge nerated this result transmit lorie reference range : <=5. The reference range was not used to interpr et this result as asher l/abnormal. [facility] CenterXgdzpufBTUNQFSFJB2046-46-97 13:25:00 Test Item Value Reference Range Interpretation Comments UA RBC (test code = 1 See_Comment N [Automa lorie message] The UA RBC) system which ge nerated this result transmit lorie reference range : <=2. The reference range was not used to interpr et this result as asher l/abnormal. [facility] HospitalSjpjnvlNMYSCCNLPK5452-52-69 13:25:00 Test Item Value Reference Range Interpretation Comments UA Mucus (test code = Few /LPF UA Mucus) *NA*(09/16/2011 08:25:00) [facility] CenterDeinnknUGURSNCSKD0274-61-73 13:25:00 Test Item Value Reference Range Interpretation Comments UA Ketones (test code Negative mg/dL = UA Ketones) *NA*(09/16/2011 08:25:00) [facility] CenterPlwbkrtDOACXCCBPU0811-18-94 13:25:00 Test Item Value Reference Range Interpretation Comments UA Bili (test code = Negative *NA*(09/16/2011 UA Bili) 08:25:00) [facility] CenterQxlzoshUADBIKQBKK9418-80-73 13:25:00 Test Item Value Reference Range Interpretation Comments UA Blood (test code = Negative (09/16/2011 N UA Blood) 08:25:00) [facility] CenterLajggfoSOCUZUGCQH6206-33-96 13:25:00 Test Item Value Reference Range Interpretation Comments UA Nitrite (test code Negative (09/16/2011 N = UA Nitrite) 08:25:00) [facility] CenterOfrumpgMMOLDTKSLB5100-39-09 13:25:00 Test Item Value Reference Range Interpretation Comments UA Leuk Est (test Negative (09/16/2011 N code = UA Leuk Est) 08:25:00) [facility] CenterWiqhvnhGGAVYZFZRF0912-31-49 13:25:00 Test Item Value Reference Range Interpretation Comments UA Sq Epi (test code Occasional /LPF = UA Sq Epi) *NA*(09/16/2011 08:25:00) [facility] HospitalFgtbgtdLUJGORKLTG2505-41-01 13:25:00 Test Item Value Reference Range Interpretation Comments UA Glucose (test code Negative mg/dL = UA Glucose) *NA*(09/16/2011 08:25:00) [facility] HospitalHwzqipgSIYKQGUULF4423-29-89 13:25:00 Test Item Value Reference Range Interpretation Comments UA Protein (test code Negative mg/dL N = UA Protein) (09/16/2011 08:25:00) [facility] HospitalIwcgewaOGSGHKYDXK0598-61-87 13:25:00 Test Item Value Reference Range Interpretation Comments UA Color (test code = Yellow *NA*(09/16/2011 UA Color) 08:25:00) [facility] HospitalPrtruplOQOZCPLLVF6371-33-55 13:25:00 Test Item Value Reference Range Interpretation Comments UA pH (test code = UA pH) 5.5 5.0-8.0 N [facility] HospitalBpamrgdEQPZIGVYGE1277-98-29 13:25:00 Test Item Value Reference Range Interpretation Comments UA Spec Grav (test code = UA Spec Grav) 1.017 N [facility] HospitalCodtpsfWGRUPBXKSU5226-13-57 13:25:00 Test Item Value Reference Range Interpretation Comments UA Turbidity (test code = Clear (09/16/2011 N UA Turbidity) 08:25:00) [facility] HospitalTzrcdflEOFACLBQVW3158-36-90 13:25:00 Test Item Value Reference Range Interpretation Comments UA Urobilinogen (test code *NA*(09/16/2011 0.1-1.0 = UA Urobilinogen) 08:25:00) [facility] HospitalKwnpkzwRWEVGOHDIK9575-86-03 13:25:00 Test Item Value Reference Range Interpretation Comments UA WBC (test code = no gt See_Comment N [Automa lorie message] The UA WBC) system which ge nerated this result transmit lorie reference range : <=5. The reference range was not used to interpr et this result as asher l/abnormal. [facility] HospitalSjjcxguRWCEMYUNLK3510-68-18 13:25:00 Test Item Value Reference Range Interpretation Comments UA RBC (test code = 1 See_Comment N [Automa lorie message] The UA RBC) system which ge nerated this result transmit lorie reference range : <=2. The reference range was not used to interpr et this result as asher l/abnormal. [facility] HospitalBzuoeiuZIEFVQUHCW2958-47-83 13:25:00 Test Item Value Reference Range Interpretation Comments UA Mucus (test code = Few /LPF UA Mucus) *NA*(09/16/2011 08:25:00) [facility] HospitalFsoiemgLLJGGVAIKY7371-22-27 13:25:00 Test Item Value Reference Range Interpretation Comments UA Ketones (test code Negative mg/dL = UA Ketones) *NA*(09/16/2011 08:25:00) [facility] HospitalFoqaebdSCJWHDBEUX2000-76-82 13:25:00 Test Item Value Reference Range Interpretation Comments UA Bili (test code = Negative *NA*(09/16/2011 UA Bili) 08:25:00) [facility] HospitalDcebcfhVBYUZZTLJY4910-65-91 13:25:00 Test Item Value Reference Range Interpretation Comments UA Blood (test code = Negative (09/16/2011 N UA Blood) 08:25:00) [facility] HospitalDywfqdiVOINNNSVMT2362-49-99 13:25:00 Test Item Value Reference Range Interpretation Comments UA Nitrite (test code Negative (09/16/2011 N = UA Nitrite) 08:25:00) [facility] HospitalGatwtjpCVSLATMABS4535-75-31 13:25:00 Test Item Value Reference Range Interpretation Comments UA Leuk Est (test Negative (09/16/2011 N code = UA Leuk Est) 08:25:00) [facility] HospitalTgpsgxmPSZUCMEXEP0206-95-46 13:25:00 Test Item Value Reference Range Interpretation Comments UA Sq Epi (test code Occasional /LPF = UA Sq Epi) *NA*(09/16/2011 08:25:00) [facility] HospitalBemecudXCLKWKVKRZ7069-37-17 13:25:00 Test Item Value Reference Range Interpretation Comments UA Glucose (test code Negative mg/dL = UA Glucose) *NA*(09/16/2011 08:25:00) [facility] HospitalMafilnkJXGYIBMUDX1475-10-72 13:25:00 Test Item Value Reference Range Interpretation Comments UA Protein (test code Negative mg/dL N = UA Protein) (09/16/2011 08:25:00) [facility] HospitalZkophilLREIZOXKCG4169-72-18 13:25:00 Test Item Value Reference Range Interpretation Comments UA Color (test code = Yellow *NA*(09/16/2011 UA Color) 08:25:00) [facility] HospitalPaagkomRDQVGIQRHH0072-69-12 13:25:00 Test Item Value Reference Range Interpretation Comments UA pH (test code = UA pH) 5.5 5.0-8.0 N [facility] HospitalSnqkmykQCDCMCWHWR7322-82-92 13:25:00 Test Item Value Reference Range Interpretation Comments UA Spec Grav (test code = UA Spec Grav) 1.017 N [facility] HospitalLjsjzirYCVQCGAYQJ5875-80-91 13:25:00 Test Item Value Reference Range Interpretation Comments UA Turbidity (test code = Clear (09/16/2011 N UA Turbidity) 08:25:00) [facility] HospitalDayadwpIMJGXNKJYK0921-25-60 13:25:00 Test Item Value Reference Range Interpretation Comments UA Urobilinogen (test code *NA*(09/16/2011 0.1-1.0 = UA Urobilinogen) 08:25:00) [facility] HospitalMwckbdaPLXBSBGCNN8809-69-44 13:25:00 Test Item Value Reference Range Interpretation Comments UA WBC (test code = no gt See_Comment N [Automa lorie message] The UA WBC) system which ge nerated this result transmit lorie reference range : <=5. The reference range was not used to interpr et this result as asher l/abnormal. [facility] HospitalAhpwecvPEHEHKUGWV2687-96-12 13:25:00 Test Item Value Reference Range Interpretation Comments UA RBC (test code = 1 See_Comment N [Automa lorie message] The UA RBC) system which ge nerated this result transmit lorie reference range : <=2. The reference range was not used to interpr et this result as asher l/abnormal. [facility] HospitalWsetmlhRRFQRRITUZ0727-88-22 13:25:00 Test Item Value Reference Range Interpretation Comments UA Mucus (test code = Few /LPF UA Mucus) *NA*(09/16/2011 08:25:00) [facility] HospitalNqxnkuvYYTJMBSYJY3675-33-84 13:25:00 Test Item Value Reference Range Interpretation Comments UA Ketones (test code Negative mg/dL = UA Ketones) *NA*(09/16/2011 08:25:00) [facility] HospitalXgsvmlfELYRBMVMSB1870-80-89 13:25:00 Test Item Value Reference Range Interpretation Comments UA Bili (test code = Negative *NA*(09/16/2011 UA Bili) 08:25:00) [facility] HospitalMopzexsHTOTATHUJY2509-93-32 13:25:00 Test Item Value Reference Range Interpretation Comments UA Blood (test code = Negative (09/16/2011 N UA Blood) 08:25:00) [facility] HospitalCfhxizsZGQGFJYNZY0520-96-13 13:25:00 Test Item Value Reference Range Interpretation Comments UA Nitrite (test code Negative (09/16/2011 N = UA Nitrite) 08:25:00) [facility] HospitalFmymotfBEHIDGVYKM3211-98-24 13:25:00 Test Item Value Reference Range Interpretation Comments UA Leuk Est (test Negative (09/16/2011 N code = UA Leuk Est) 08:25:00) [facility] HospitalKngvvbaNPAVQURJOB2525-18-14 13:25:00 Test Item Value Reference Range Interpretation Comments UA Sq Epi (test code Occasional /LPF = UA Sq Epi) *NA*(09/16/2011 08:25:00) [facility] HospitalIcestsyKAFFIHMFFB2780-49-18 13:25:00 Test Item Value Reference Range Interpretation Comments UA Glucose (test code Negative mg/dL = UA Glucose) *NA*(09/16/2011 08:25:00) [facility] HospitalBowdbpsNFJDBKRMVO2211-80-32 13:25:00 Test Item Value Reference Range Interpretation Comments UA Protein (test code Negative mg/dL N = UA Protein) (09/16/2011 08:25:00) [facility] HospitalCpcknizLTZUDVYFIC6409-96-54 13:25:00 Test Item Value Reference Range Interpretation Comments UA Color (test code = Yellow *NA*(09/16/2011 UA Color) 08:25:00) [facility] HospitalEtkcludVXWNRBRJFE2418-37-08 13:25:00 Test Item Value Reference Range Interpretation Comments UA pH (test code = UA pH) 5.5 5.0-8.0 N [facility] HospitalOqykmsdLUDKQBFXIU6678-18-29 13:25:00 Test Item Value Reference Range Interpretation Comments UA Spec Grav (test code = UA Spec Grav) 1.017 N [facility] HospitalKyqvbyqRIAOXGDNQG5125-31-34 13:25:00 Test Item Value Reference Range Interpretation Comments UA Turbidity (test code = Clear (09/16/2011 N UA Turbidity) 08:25:00) [facility] HospitalDzfxwqyTDSXHDWFUG0382-16-71 08:42:00 Test Item Value Reference Range Interpretation Comments UA Mucus (test code = Few /LPF UA Mucus) *NA*(09/15/2011 03:42:00) [facility] HospitalVoruenrBIPTKUAIAW0677-16-66 08:42:00 Test Item Value Reference Range Interpretation Comments UA RBC (test code = 1 See_Comment N [Automa lorie message] The UA RBC) system which ge nerated this result transmit lorie reference range : <=2. The reference range was not used to interpr et this result as asher l/abnormal. [facility] HospitalTyazcphGSTKGAJLKI7945-58-00 08:42:00 Test Item Value Reference Range Interpretation Comments UA Blood (test code = Negative (09/15/2011 N UA Blood) 03:42:00) [facility] HospitalEebauabKDWHVRDCLE1489-60-57 08:42:00 Test Item Value Reference Range Interpretation Comments UA Nitrite (test code Negative (09/15/2011 N = UA Nitrite) 03:42:00) [facility] HospitalLfrbfekKCGMYVIGHT0796-59-33 08:42:00 Test Item Value Reference Range Interpretation Comments UA Leuk Est (test Negative (09/15/2011 N code = UA Leuk Est) 03:42:00) [facility] HospitalVyezdjaQWZLOISKSN6602-82-02 08:42:00 Test Item Value Reference Range Interpretation Comments UA pH (test code = UA pH) 5.5 5.0-8.0 N [facility] HospitalWclovuuQVBQYYBSPG9234-13-90 08:42:00 Test Item Value Reference Range Interpretation Comments UA Protein (test code Negative mg/dL N = UA Protein) (09/15/2011 03:42:00) [facility] HospitalYxednozBGPYFOXAKL3771-54-32 08:42:00 Test Item Value Reference Range Interpretation Comments UA Glucose (test code Negative mg/dL = UA Glucose) *NA*(09/15/2011 03:42:00) [facility] HospitalPylzuacZOFEESSYTO5269-54-61 08:42:00 Test Item Value Reference Range Interpretation Comments UA Ketones (test code Negative mg/dL = UA Ketones) *NA*(09/15/2011 03:42:00) [facility] HospitalPdrgkzwOJZUAJUUUH2214-85-72 08:42:00 Test Item Value Reference Range Interpretation Comments UA Bili (test code = Negative *NA*(09/15/2011 UA Bili) 03:42:00) [facility]HrpugkrZNYERBFRSH7317-38-61 08:42:00 Test Item Value Reference Range Interpretation Comments UA Color (test code = Yellow *NA*(09/15/2011 UA Color) 03:42:00) [facility] CenterLrdwxghBXJGMVOSHB9882-18-44 08:42:00 Test Item Value Reference Range Interpretation Comments UA Turbidity (test code Slight A = UA Turbidity) *ABN*(09/15/2011 03:42:00) [facility] CenterFkbqkjtLUNJOFHSCF4149-54-38 08:42:00 Test Item Value Reference Range Interpretation Comments UA Spec Grav (test code = UA Spec Grav) 1.012 N [facility] CenterGmbourjIKUOSYRQWQ4927-22-87 08:42:00 Test Item Value Reference Range Interpretation Comments UA Sq Epi (test code = UA Sq Epi) None [facility]en [facility] CenterZikrcpkRXARDQKQSH2602-23-68 08:42:00 Test Item Value Reference Range Interpretation Comments UA Urobilinogen (test code *NA*(09/15/2011 0.1-1.0 = UA Urobilinogen) 03:42:00) [facility] CenterQpxsugwHghjlvfrvymm7518-16-89 08:42:00 Test Item Value Reference Range Interpretation Comments Culture: Urine (test code = Culture: Urine) [facility] CenterSdhfsqjHRBKXSGXRU0858-44-67 08:42:00 Test Item Value Reference Range Interpretation Comments UA Mucus (test code = Few /LPF UA Mucus) *NA*(09/15/2011 03:42:00) [facility] CenterSqoxdngRLVXQYYRRQ2549-43-45 08:42:00 Test Item Value Reference Range Interpretation Comments UA RBC (test code = 1 See_Comment N [Automa lorie message] The UA RBC) system which ge nerated this result transmit lorie reference range : <=2. The reference range was not used to interpr et this result as asher l/abnormal. [facility] CenterAlkueutLFMLOLJKPQ1795-14-15 08:42:00 Test Item Value Reference Range Interpretation Comments UA Blood (test code = Negative (09/15/2011 N UA Blood) 03:42:00) [facility] HospitalYyzniucBNEZPJNZJK6875-01-61 08:42:00 Test Item Value Reference Range Interpretation Comments UA Nitrite (test code Negative (09/15/2011 N = UA Nitrite) 03:42:00) [facility] HospitalJjnbljfWTCDFHGFNB7092-85-44 08:42:00 Test Item Value Reference Range Interpretation Comments UA Leuk Est (test Negative (09/15/2011 N code = UA Leuk Est) 03:42:00) [facility] HospitalVyyvxzxKTWBMSQRLK9198-28-78 08:42:00 Test Item Value Reference Range Interpretation Comments UA pH (test code = UA pH) 5.5 5.0-8.0 N [facility] HospitalYqvydmdZLVEOJLLGF5706-92-44 08:42:00 Test Item Value Reference Range Interpretation Comments UA Protein (test code Negative mg/dL N = UA Protein) (09/15/2011 03:42:00) [facility] HospitalYahiomdENTSWBCVPX7803-75-81 08:42:00 Test Item Value Reference Range Interpretation Comments UA Glucose (test code Negative mg/dL = UA Glucose) *NA*(09/15/2011 03:42:00) [facility] HospitalFawtppiTUHLHDSIUC9273-80-02 08:42:00 Test Item Value Reference Range Interpretation Comments UA Ketones (test code Negative mg/dL = UA Ketones) *NA*(09/15/2011 03:42:00) [facility] HospitalJmlcoknFVTXZBQFXC5273-78-98 08:42:00 Test Item Value Reference Range Interpretation Comments UA Bili (test code = Negative *NA*(09/15/2011 UA Bili) 03:42:00) [facility] HospitalZipajstFECZROPIET6301-89-08 08:42:00 Test Item Value Reference Range Interpretation Comments UA Color (test code = Yellow *NA*(09/15/2011 UA Color) 03:42:00) [facility] HospitalCmqhhfpDDHCUTXDPF4574-19-05 08:42:00 Test Item Value Reference Range Interpretation Comments UA Turbidity (test code Slight A = UA Turbidity) *ABN*(09/15/2011 03:42:00) [facility] HospitalMtbcpmjOFSZQCZKGS7194-43-64 08:42:00 Test Item Value Reference Range Interpretation Comments UA Spec Grav (test code = UA Spec Grav) 1.012 N [facility] HospitalJtbrwpzTYOTXQICQZ1712-09-32 08:42:00 Test Item Value Reference Range Interpretation Comments UA Sq Epi (test code = UA Sq Epi) None [facility]en [facility] CenterYylcmbkTOMNQGGEOZ6251-04-66 08:42:00 Test Item Value Reference Range Interpretation Comments UA Urobilinogen (test code *NA*(09/15/2011 0.1-1.0 = UA Urobilinogen) 03:42:00) [facility]ChwitufCszpgfyzzjmm2263-68-36 08:42:00 Test Item Value Reference Range Interpretation Comments Culture: Urine (test code = Culture: Urine) [facility] CenterMyjouheZABEVOZUTQ7697-58-42 08:42:00 Test Item Value Reference Range Interpretation Comments UA Mucus (test code = Few /LPF UA Mucus) *NA*(09/15/2011 03:42:00) [facility] CenterFqjcfuqBTGQNXJJBS9042-18-72 08:42:00 Test Item Value Reference Range Interpretation Comments UA RBC (test code = 1 See_Comment N [Automa lorie message] The UA RBC) system which ge nerated this result transmit lorie reference range : <=2. The reference range was not used to interpr et this result as asher l/abnormal. [facility] CenterEtemskuXLIFOXGOAQ1652-06-57 08:42:00 Test Item Value Reference Range Interpretation Comments UA Blood (test code = Negative (09/15/2011 N UA Blood) 03:42:00) [facility] CenterRloyyhwBPRVORRRTR1006-03-56 08:42:00 Test Item Value Reference Range Interpretation Comments UA Nitrite (test code Negative (09/15/2011 N = UA Nitrite) 03:42:00) [facility] CenterCnscwafFNWXBYRONF1514-73-83 08:42:00 Test Item Value Reference Range Interpretation Comments UA Leuk Est (test Negative (09/15/2011 N code = UA Leuk Est) 03:42:00) [facility] CenterYlvxhzkPYOUSGCEBV9854-34-95 08:42:00 Test Item Value Reference Range Interpretation Comments UA pH (test code = UA pH) 5.5 5.0-8.0 N [facility] CenterTjtfmvuQTZOCPARXD0954-98-04 08:42:00 Test Item Value Reference Range Interpretation Comments UA Protein (test code Negative mg/dL N = UA Protein) (09/15/2011 03:42:00) [facility] CenterTpblmveGQASPOGKUH1487-51-48 08:42:00 Test Item Value Reference Range Interpretation Comments UA Glucose (test code Negative mg/dL = UA Glucose) *NA*(09/15/2011 03:42:00) [facility] CenterCwrgqbsQBWMOPILZA1651-74-73 08:42:00 Test Item Value Reference Range Interpretation Comments UA Ketones (test code Negative mg/dL = UA Ketones) *NA*(09/15/2011 03:42:00) [facility] CenterOzydufwCOTPFUVGVC2703-65-91 08:42:00 Test Item Value Reference Range Interpretation Comments UA Bili (test code = Negative *NA*(09/15/2011 UA Bili) 03:42:00) [facility] CenterNkwmdpxHEYTIXWKHH3974-71-37 08:42:00 Test Item Value Reference Range Interpretation Comments UA Color (test code = Yellow *NA*(09/15/2011 UA Color) 03:42:00) [facility] CenterKkchgwwJQCCVDEFVA5766-69-44 08:42:00 Test Item Value Reference Range Interpretation Comments UA Turbidity (test code Slight A = UA Turbidity) *ABN*(09/15/2011 03:42:00) [facility]EiinbrtAJEZLVRMFS7108-68-25 08:42:00 Test Item Value Reference Range Interpretation Comments UA Spec Grav (test code = UA Spec Grav) 1.012 N [facility] CenterUtwmcbnPNSEDAMYVE5445-74-55 08:42:00 Test Item Value Reference Range Interpretation Comments UA Sq Epi (test code = UA Sq Epi) None Seen [facility] HospitalKqmjrjuVHVLJTNKKG4699-35-18 08:42:00 Test Item Value Reference Range Interpretation Comments UA Urobilinogen (test code *NA*(09/15/2011 0.1-1.0 = UA Urobilinogen) 03:42:00) [facility] CenterUslkrdpPmuawiaymdga7788-79-98 08:42:00 Test Item Value Reference Range Interpretation Comments Culture: Urine (test code = Culture: Urine) [facility] CenterTaclkjfXJPXGWPXDQ7272-80-62 08:42:00 Test Item Value Reference Range Interpretation Comments UA Mucus (test code = Few /LPF UA Mucus) *NA*(09/15/2011 03:42:00) [facility] CenterLvnpqfxRRNDQMWTRG8779-16-71 08:42:00 Test Item Value Reference Range Interpretation Comments UA RBC (test code = 1 See_Comment N [Automa lorie message] The UA RBC) system which ge nerated this result transmit lorie reference range : <=2. The reference range was not used to interpr et this result as asher l/abnormal. [facility] HospitalDnuxmzrCPPXEGTKLH6984-69-24 08:42:00 Test Item Value Reference Range Interpretation Comments UA Blood (test code = Negative (09/15/2011 N UA Blood) 03:42:00) [facility] HospitalEwssdopSOKHHINYMA0186-67-46 08:42:00 Test Item Value Reference Range Interpretation Comments UA Nitrite (test code Negative (09/15/2011 N = UA Nitrite) 03:42:00) [facility] HospitalPfzpwwjLMMVXULJMD4093-32-63 08:42:00 Test Item Value Reference Range Interpretation Comments UA Leuk Est (test Negative (09/15/2011 N code = UA Leuk Est) 03:42:00) [facility] HospitalNikwaewNLIGQPDXAZ9739-14-25 08:42:00 Test Item Value Reference Range Interpretation Comments UA pH (test code = UA pH) 5.5 5.0-8.0 N [facility] HospitalFqkscvtNBPDYOMIYS5925-44-86 08:42:00 Test Item Value Reference Range Interpretation Comments UA Protein (test code Negative mg/dL N = UA Protein) (09/15/2011 03:42:00) [facility] HospitalIxedpoeAMZAJFDLQU2445-54-47 08:42:00 Test Item Value Reference Range Interpretation Comments UA Glucose (test code Negative mg/dL = UA Glucose) *NA*(09/15/2011 03:42:00) [facility] HospitalCrrykpbKWUAIBYLBW6617-62-99 08:42:00 Test Item Value Reference Range Interpretation Comments UA Ketones (test code Negative mg/dL = UA Ketones) *NA*(09/15/2011 03:42:00) [facility] HospitalSboanuwDZIZQSJMMY2790-62-53 08:42:00 Test Item Value Reference Range Interpretation Comments UA Bili (test code = Negative *NA*(09/15/2011 UA Bili) 03:42:00) [facility] HospitalSbrdoqhHOMEKQXHZN9031-64-09 08:42:00 Test Item Value Reference Range Interpretation Comments UA Color (test code = Yellow *NA*(09/15/2011 UA Color) 03:42:00) [facility] HospitalVdoirquIPKNYNJBPA6833-72-70 08:42:00 Test Item Value Reference Range Interpretation Comments UA Turbidity (test code Slight A = UA Turbidity) *ABN*(09/15/2011 03:42:00) [facility] CenterCbllbcwMHZVVVWOSZ8139-96-74 08:42:00 Test Item Value Reference Range Interpretation Comments UA Spec Grav (test code = UA Spec Grav) 1.012 N [facility] CenterIehmvqpNNKFRWHMZR1919-28-33 08:42:00 Test Item Value Reference Range Interpretation Comments UA Sq Epi (test code = UA Sq Epi) None Seen [facility] HospitalSbpgieeCZDEOKZMAF1193-61-41 08:42:00 Test Item Value Reference Range Interpretation Comments UA Urobilinogen (test code *NA*(09/15/2011 0.1-1.0 = UA Urobilinogen) 03:42:00) [facility]ViwbqekMyhokqponvja8625-24-54 08:42:00 Test Item Value Reference Range Interpretation Comments Culture: Urine (test code = Culture: Urine) [facility] CenterNxnkoniPPSQCFENQ5047-77-43 08:40:00 Test Item Value Reference Range Interpretation Comments TSH (test code = TSH) 3.390 0.360-3.740 N [facility] CenterBcevqmzDYKGEHJTV9093-49-40 08:40:00 Test Item Value Reference Range Interpretation Comments T4 (test code = T4) 8.5 4.7-13.3 N [facility] CenterCbdowlgULDRLXGBQ6516-05-21 08:40:00 Test Item Value Reference Range Interpretation Comments T3 Uptake (test code = T3 Uptake) 33 31-39 N [facility] CenterPzmwknvCQFXKLBQP5732-90-60 08:40:00 Test Item Value Reference Range Interpretation Comments TSH (test code = TSH) 3.390 0.360-3.740 N [facility] CenterMdgfhefEZHTKYXWQ2540-45-00 08:40:00 Test Item Value Reference Range Interpretation Comments Total Protein (test code = Total 6.4 6.4-8.4 N Protein) [facility] CenterAbgyzvjPDXWSUANP0692-13-41 08:40:00 Test Item Value Reference Range Interpretation Comments AST (test code = AST) 14 See_Comment N [Auto mated message] The system which ge nerated this result transmit lorie reference range : <=37. The reference range was not used to interpr et this result as asher l/abnormal. [facility] CenterXzpffbqMHDPSOGUE1770-29-12 08:40:00 Test Item Value Reference Range Interpretation Comments Bili Total (test code = Bili Total) 0.4 0.2-1.3 N [facility] CenterVxocmwjOWSRHIFZR4173-65-01 08:40:00 Test Item Value Reference Range Interpretation Comments ALT (test code = ALT) 24 See_Comment N [Auto mated message] The system which ge nerated this result transmit lorie reference range : <=65. The reference range was not used to interpr et this result as asher l/abnormal. [facility] CenterKklhihbQKJUTLKEH0887-04-51 08:40:00 Test Item Value Reference Range Interpretation Comments Alk Phos (test code = Alk Phos) 81 39-136 N [facility] CenterLmxdcrvMXRCRTHNG7521-68-87 08:40:00 Test Item Value Reference Range Interpretation Comments Albumin Lvl (test code = Albumin Lvl) 3.3 3.5-5.0 L [facility] CenterZzckqjfBUXATWMHH3099-35-89 08:40:00 Test Item Value Reference Range Interpretation Comments A/G Ratio (test code = A/G Ratio) 1.1 0.7-1.6 N [facility] CenterLgifhmrSFGKYCDCA8601-00-92 08:40:00 Test Item Value Reference Range Interpretation Comments B/C Ratio (test code = B/C Ratio) 14 6-25 N [facility] CenterZmluurxBCNLIWTRI4133-49-79 08:40:00 Test Item Value Reference Range Interpretation Comments Globulin (test code = Globulin) 3.1 2.0-4.0 N [facility] CenterCnwudqhGZLHXTENS5854-22-03 08:40:00 Test Item Value Reference Range Interpretation Comments FTI (test code = FTI) 2.8 [facility]MkncttlCRVWTAXHRE1136-28-83 08:40:00 Test Item Value Reference Range Interpretation Comments PTT (test code = PTT) 32.4 s 22.9-35.8 N [facility] HospitalPrgkeizHQUWRJAAMK0329-54-43 08:40:00 Test Item Value Reference Range Interpretation Comments PT (test code = PT) 13.0 s 12.0-14.7 N [facility] HospitalSbqoyaxTIMSCFAJDQ6209-86-57 08:40:00 Test Item Value Reference Range Interpretation Comments INR (test code = INR) 0.98 0.85-1.17 N [facility] CenterIzlepbaOTCPSXASE3205-54-80 08:40:00 Test Item Value Reference Range Interpretation Comments TSH (test code = TSH) 3.390 0.360-3.740 N [facility] CenterQywsgxiBKPQUFRPW9175-23-90 08:40:00 Test Item Value Reference Range Interpretation Comments T4 (test code = T4) 8.5 4.7-13.3 N [facility] CenterMfiarawGLPGQVIDV7773-42-44 08:40:00 Test Item Value Reference Range Interpretation Comments T3 Uptake (test code = T3 Uptake) 33 31-39 N [facility] CenterTnamwsbIZOVUTGVQ0389-20-27 08:40:00 Test Item Value Reference Range Interpretation Comments TSH (test code = TSH) 3.390 0.360-3.740 N [facility] CenterJlgdifrYRVOBKLHD4266-11-09 08:40:00 Test Item Value Reference Range Interpretation Comments Total Protein (test code = Total 6.4 6.4-8.4 N Protein) [facility] CenterVmjpaaqYKUAHXHGE7355-97-00 08:40:00 Test Item Value Reference Range Interpretation Comments AST (test code = AST) 14 See_Comment N [Auto mated message] The system which ge nerated this result transmit lorie reference range : <=37. The reference range was not used to interpr et this result as asher l/abnormal. [facility] CenterYzxwxuqCZCPVATFO1173-65-06 08:40:00 Test Item Value Reference Range Interpretation Comments Bili Total (test code = Bili Total) 0.4 0.2-1.3 N [facility] CenterWowduybERWFHFPZN7958-19-05 08:40:00 Test Item Value Reference Range Interpretation Comments ALT (test code = ALT) 24 See_Comment N [Auto mated message] The system which ge nerated this result transmit lorie reference range : <=65. The reference range was not used to interpr et this result as asher l/abnormal. [facility] CenterUjiobngDMNALTOAQ6794-05-32 08:40:00 Test Item Value Reference Range Interpretation Comments Alk Phos (test code = Alk Phos) 81 39-136 N [facility] CenterBvgxkfeBQGOOUHCM5716-71-25 08:40:00 Test Item Value Reference Range Interpretation Comments Albumin Lvl (test code = Albumin Lvl) 3.3 3.5-5.0 L [facility] CenterGcycggxNXLGOUTZQ9184-24-81 08:40:00 Test Item Value Reference Range Interpretation Comments A/G Ratio (test code = A/G Ratio) 1.1 0.7-1.6 N [facility] CenterFlhnbhwXVBQEVQBL1478-81-12 08:40:00 Test Item Value Reference Range Interpretation Comments B/C Ratio (test code = B/C Ratio) 14 6-25 N [place] [address]-06-02 08:40:00 Test Item Value Reference Range Interpretation Comments Globulin (test code = Globulin) 3.1 2.0-4.0 N [facility] CenterLbqftleFGERMUFZS4403-20-74 08:40:00 Test Item Value Reference Range Interpretation Comments FTI (test code = FTI) 2.8 [facility] HospitalVnusjyyRNOBWIIPEA5234-65-46 08:40:00 Test Item Value Reference Range Interpretation Comments PTT (test code = PTT) 32.4 s 22.9-35.8 N [facility] HospitalAkiahitNNOJSGHUMZ6305-87-70 08:40:00 Test Item Value Reference Range Interpretation Comments PT (test code = PT) 13.0 s 12.0-14.7 N [facility] HospitalVuezycaEFPWUOOHTK6137-39-43 08:40:00 Test Item Value Reference Range Interpretation Comments INR (test code = INR) 0.98 0.85-1.17 N [facility] CenterJkvkdjzIRHUXTCXE6667-96-18 08:40:00 Test Item Value Reference Range Interpretation Comments TSH (test code = TSH) 3.390 0.360-3.740 N [facility] CenterJsncfdxHGVUMWDNK2486-49-61 08:40:00 Test Item Value Reference Range Interpretation Comments T4 (test code = T4) 8.5 4.7-13.3 N [facility] CenterVjukgxtCNNAJWZBF5390-31-86 08:40:00 Test Item Value Reference Range Interpretation Comments T3 Uptake (test code = T3 Uptake) 33 31-39 N [facility] CenterDpyetcoRDNBPLIVB7478-31-69 08:40:00 Test Item Value Reference Range Interpretation Comments TSH (test code = TSH) 3.390 0.360-3.740 N [facility] CenterPgnskhpMRFSWRTOQ9983-99-39 08:40:00 Test Item Value Reference Range Interpretation Comments Total Protein (test code = Total 6.4 6.4-8.4 N Protein) [facility] CenterDedwyzxXQNJLQNVD8355-08-85 08:40:00 Test Item Value Reference Range Interpretation Comments AST (test code = AST) 14 See_Comment N [Auto mated message] The system which ge nerated this result transmit lorie reference range : <=37. The reference range was not used to interpr et this result as asher l/abnormal. [facility] EsjbiyvERKBHFTYJ9987-33-06 08:40:00 Test Item Value Reference Range Interpretation Comments Bili Total (test code = Bili Total) 0.4 0.2-1.3 N [facility]leGjefrghMACWBMBVC7865-13-69 08:40:00 Test Item Value Reference Range Interpretation Comments ALT (test code = ALT) 24 See_Comment N [Auto mated message] The system which ge nerated this result transmit lorie reference range : <=65. The reference range was not used to interpr et this result as asher l/abnormal. [facility] SjzwnpyARDKHUJPZ4657-03-00 08:40:00 Test Item Value Reference Range Interpretation Comments Alk Phos (test code = Alk Phos) 81 39-136 N [facility]leInixhvhNNMCCNLVP5920-64-34 08:40:00 Test Item Value Reference Range Interpretation Comments Albumin Lvl (test code = Albumin Lvl) 3.3 3.5-5.0 L [facility]leYwwtzpsYEUEKFLYA6901-37-80 08:40:00 Test Item Value Reference Range Interpretation Comments A/G Ratio (test code = A/G Ratio) 1.1 0.7-1.6 N [facility]leCwpyrcqUTGRWJJJO5284-36-03 08:40:00 Test Item Value Reference Range Interpretation Comments B/C Ratio (test code = B/C Ratio) 14 6-25 N [facility]leCesvnauBIPXEYFSO1213-79-99 08:40:00 Test Item Value Reference Range Interpretation Comments Globulin (test code = Globulin) 3.1 2.0-4.0 N [facility]leEsfdxghVCSJIQPQI6167-27-58 08:40:00 Test Item Value Reference Range Interpretation Comments FTI (test code = FTI) 2.8 [facility] AzleLjniiswDDCCRCCAQU0452-14-43 08:40:00 Test Item Value Reference Range Interpretation Comments PTT (test code = PTT) 32.4 s 22.9-35.8 N [facility] AzleJqjhxmaLVORLMNOIG2292-16-49 08:40:00 Test Item Value Reference Range Interpretation Comments PT (test code = PT) 13.0 s 12.0-14.7 N [facility] HospitalEcpqjauYLMHKPJCQZ3308-82-39 08:40:00 Test Item Value Reference Range Interpretation Comments INR (test code = INR) 0.98 0.85-1.17 N [facility] CenterMstzrqjSRZUXBTQU6377-06-78 08:40:00 Test Item Value Reference Range Interpretation Comments TSH (test code = TSH) 3.390 0.360-3.740 N [facility] CenterEhendfgJIKVHOMTH9047-15-30 08:40:00 Test Item Value Reference Range Interpretation Comments T4 (test code = T4) 8.5 4.7-13.3 N [facility] CenterMejmgowHVTLKUNKI5486-95-61 08:40:00 Test Item Value Reference Range Interpretation Comments T3 Uptake (test code = T3 Uptake) 33 31-39 N [facility] CenterYcvfixiIYLLMTTBP4576-45-54 08:40:00 Test Item Value Reference Range Interpretation Comments TSH (test code = TSH) 3.390 0.360-3.740 N [facility] CenterDgflgaiDUSZPHQDT7390-94-62 08:40:00 Test Item Value Reference Range Interpretation Comments Total Protein (test code = Total 6.4 6.4-8.4 N Protein) [facility] CenterAprintwFGQTHIXMS2534-42-62 08:40:00 Test Item Value Reference Range Interpretation Comments AST (test code = AST) 14 See_Comment N [Auto mated message] The system which ge nerated this result transmit lorie reference range : <=37. The reference range was not used to interpr et this result as asher l/abnormal. [facility] CenterMwtjnlhZGJXZEBIK0540-53-91 08:40:00 Test Item Value Reference Range Interpretation Comments Bili Total (test code = Bili Total) 0.4 0.2-1.3 N [facility] CenterByvvqpkOSWZVTVZA4736-95-38 08:40:00 Test Item Value Reference Range Interpretation Comments ALT (test code = ALT) 24 See_Comment N [Auto mated message] The system which ge nerated this result transmit lorie reference range : <=65. The reference range was not used to interpr et this result as asher l/abnormal. [facility] CenterQlpzdqiOMZCKPBJZ6458-29-39 08:40:00 Test Item Value Reference Range Interpretation Comments Alk Phos (test code = Alk Phos) 81 39-136 N [facility] CenterFylusavFOAIGCPQJ2690-39-12 08:40:00 Test Item Value Reference Range Interpretation Comments Albumin Lvl (test code = Albumin Lvl) 3.3 3.5-5.0 L [facility] CenterCbpvauxYJWDYRENX2230-22-38 08:40:00 Test Item Value Reference Range Interpretation Comments A/G Ratio (test code = A/G Ratio) 1.1 0.7-1.6 N [facility] CenterDhijdjsNZRHTYCIU8712-83-10 08:40:00 Test Item Value Reference Range Interpretation Comments B/C Ratio (test code = B/C Ratio) 14 6-25 N [facility] CenterFyqmtwoQPYTXGAHH7105-77-13 08:40:00 Test Item Value Reference Range Interpretation Comments Globulin (test code = Globulin) 3.1 2.0-4.0 N [facility] CenterHxixiwjICIWIXVXI5364-78-61 08:40:00 Test Item Value Reference Range Interpretation Comments FTI (test code = FTI) 2.8 [facility] HospitalCqtsetkOUECRHEBXZ2636-00-46 08:40:00 Test Item Value Reference Range Interpretation Comments PTT (test code = PTT) 32.4 s 22.9-35.8 N [facility] HospitalYtnxjmoXIPTDBZSUW6163-76-08 08:40:00 Test Item Value Reference Range Interpretation Comments PT (test code = PT) 13.0 s 12.0-14.7 N [facility] HospitalIrjwjhgSATDTAOQXS4772-77-61 08:40:00 Test Item Value Reference Range Interpretation Comments INR (test code = INR) 0.98 0.85-1.17 N [facility]
[2022-09-12 04:26] LABS: Absolute Lymphocytes (CBC) 3.1 K/uL (0.7-4.9); Hematocrit 31.2 % (39.6-49.0); Lymphocytes % 43.1 % (15.3-44.8); MCV 70.5 fL (80-100); MPV 8.2 fL (7.6-11.3); RBC Red Blood Cell Count 4.43 M/uL (4.33-5.43)
[2022-09-12] MEDS ORDERED: ZIPRASIDONE MESYLA 20 MG/VIAL IM ONE (04:30)
[2022-09-12] MEDS ORDERED: WATER FOR INJ,STERILE 10 ML ONE (04:30)
[2022-09-12 04:39] LABS: ALT/SGPT 11 U/L (16-61); AST/SGOT 7 U/L (15-37); Albumin 3.3 g/dL (3.4-5.0); Alkaline Phosphatase 62 U/L (45-117); BUN Blood Urea Nitrogen 17 mg/dL (7-18); Bicarbonate 26 mEq/L (21-32); Bilirubin Total 0.2 mg/dL (0.2-1.0); Creatine Phosphokinase 53 U/L (39-308); Glomerular Filtration Rate 99 ml/min (=/>90); Glucose Level 90 mg/dL (74-106); Magnesium 2.2 mg/dL (1.6-2.4); NT PRO-BNP 497 pg/mL (<125); Potassium 4.2 mEq/L (3.5-5.1); Protein, Total 7.3 g/dL (6.4-8.2); Sodium Level 141 mEq/L (136-145); Troponin High Sensitivity 15.6 pg/mL (<58.9)
[2022-09-12 04:50] LABS: Bilirubin Direct < 0.1 mg/dL (0-0.2); Bilirubin Indirect, Calculated ND mg/dL (0.2-0.8)
[2022-09-12 05:02] LABS: Protime INR 1.14
[2022-09-12 05:24] LABS: Anisocytosis 2+; Blood Morphology Comment NOTED (NOT SEEN); Platelet Estimate ADEQ; Target Cells 1+; White Blood Cell Scan OK (OK)
[2022-09-12] MEDS ORDERED: HYDROCODONE/APAP 10/325 TAB ONE (05:38)
[2022-09-12] MEDS ORDERED: KETOROLAC 30 MG/ML INJ ONE (05:38)
[2022-09-12] MEDS ORDERED: ONDANSETRON 4 MG (ODT) TAB ONE (05:38)
--- NOTE | 2022-09-12 07:03 | EDPHYS ---
Physician Documentation [facility] Name: Bryan Graf Age: 71 yrs Sex: Male : 1950 Arrival Date: 09/12/2022 Time: 03:41 Bed 2 Private MD: ED Physician Wild Coulter HPI: 09/12 06:38 This 71 yrs old Male presents to ER via EMS with complaints of bilateral leg sp4 pain, fall at home. . 06:38 71-year-old male with past medical history of chronic pain, COPD, CVA, hypertension, sp4 migraine presents with acute bilateral lower extremity pain also complaining of fall at home secondary to generalized weakness. . 06:50 Patient has further history of CVA, seizures, history of admission 05/22/2022 for sp4 altered mental status, seizure, generalized weakness, medications include Depakote twice a day Keppra twice a day gabapentin twice a day oxycodone every 4 hours as needed albuterol inhaler carvedilol prednisone atorvastatin clopidogrel. Historical: - Allergies: 03:45 Aspirin; rv 03:45 PENICILLINS; rv - Home Meds: 03:45 Keppra Oral [Active]; rv - PMHx: 03:45 Chronic pain; COPD; CVA; Hypertension; Migraine; Pneumonia; Seizures; swelling and pain rv to L lower leg; - PSHx: 03:45 heart surgery; rv - Immunization history:: Adult Immunizations up to date. - Social history:: Smoking status: Patient reports the use of cigarette tobacco products, smokes one pack cigarettes per day. ROS: 06:45 Constitutional: Negative for fever, chills, and weight loss, positive for generalized sp4 weakness and fall at home Eyes: Negative for injury, pain, redness, and discharge, ENT: Negative for injury, pain, and discharge, Neck: Negative for injury, pain, and swelling, Cardiovascular: Negative for chest pain, palpitations, and edema, Respiratory: Negative for shortness of breath, cough, wheezing, and pleuritic chest pain, Abdomen/GI: Negative for abdominal pain, nausea, vomiting, diarrhea, and constipation, Back: Negative for injury and pain, : Negative for injury, bleeding, discharge, and swelling, MS/Extremity: Negative for injury and deformity, positive for bilateral chronic lower extremity pain Skin: Negative for injury, rash, and discoloration, Neuro: Negative for headache, weakness, numbness, tingling, and seizure, Psych: Negative for depression, anxiety, Allergy/Immunology: Negative for hives, rash, and allergies Endocrine: Negative for neck swelling, polydipsia, polyuria, polyphagia, and weight changes Hematologic/Lymphatic: Negative for swollen nodes, abnormal bleeding, and unusual bruising Exam: 06:45 Constitutional: This is a well developed, well nourished patient who is awake, alert, sp4 and in no acute distress. Patient has generalized weakness, tremulous on exam, overall nonfocal weakness Head/Face: Normocephalic, atraumatic. Eyes: Pupils equal round and reactive to light, extra-ocular motions intact. Lids and lashes normal. Conjunctiva and sclera are not injected. Cornea within normal limits. Periorbital areas with no swelling, redness, or edema. ENT: Nares patent. No nasal discharge, no septal abnormalities noted. Tympanic membranes are normal and external auditory canals are clear. Oropharynx with no redness, swelling, or masses, exudates, or evidence of obstruction, uvula midline. Mucous membranes moist. Neck: Trachea midline, no thyromegaly or masses palpated, and no cervical lymphadenopathy. Supple, full range of motion without nuchal rigidity, or vertebral point tenderness. No Meningismus. Chest/axilla: Normal chest wall appearance and motion. Nontender with no deformity. No lesions are appreciated. Cardiovascular: Regular rate and rhythm with a normal S1 and S2. No gallops, murmurs, or rubs. Normal PMI, no JVD. No pulse deficits. Respiratory: Lungs have equal breath sounds bilaterally, clear to auscultation and percussion. No rales, rhonchi or wheezes noted. No increased work of breathing, no retractions or nasal flaring. Abdomen/GI: Soft, non-tender, with normal bowel sounds. No distension or tympany. No guarding or rebound. No evidence of tenderness throughout. Back: No spinal tenderness. No costovertebral tenderness. Male : Normal genitalia with no discharge or lesions. Skin: Warm, dry with normal turgor. Normal color with no rashes, no lesions, and no evidence of cellulitis. MS/ Extremity: Pulses equal, no cyanosis. Neurovascular intact. Full, normal range of motion. Nonambulatory secondary to generalized weakness able to stand up with assistance Neuro: Awake and alert, GCS 15, oriented to person, place, time, and situation. Cranial nerves II-XII grossly intact. Motor strength 5/5 in all extremities. Sensory grossly intact. Psych: Awake, alert, with orientation to person, place and time. Behavior, mood, and affect are within normal limits 06:45 ECG was reviewed by the Attending Physician. EKG time 0 347. Sinus bradycardia at a sp4 rate of 58, first-degree AV block, left axis deviation, no ST elevation or depression 06:56 Abdomen/GI: Digital rectal exam revealed no blood, no melena, no fissures, no fistula, sp4 no bright red blood. Vital Signs: 03:43 BP 153 / 59; Pulse 59; Resp 18; Temp 98; Pulse Ox 99% ; Weight 70.5 kg (M); Height 5 rv ft. 8 in. ; Pain 8/10; 05:02 BP 162 / 86; Pulse 66; Resp 14; Pulse Ox 99% on R/A; ll3 06:15 BP 154 / 59; Pulse 69; Resp 16; Pulse Ox 100% on R/A; ll3 07:20 BP 154 / 59; Pulse 58; Resp 14; Pulse Ox 97% on R/A; ph 08:39 BP 149 / 61; Pulse 47; Resp 14; Pulse Ox 95% on R/A; ph 03:43 Body Mass Index 23.63 (70.50 kg, 172.72 cm) rv 03:43 Pain Scale: Adult rv NIH Stroke Scale Scores: 06:45 NIHSS Score: 0 sp4 [place] Coma Score: 06:45 Eye Response: spontaneous(4). Motor Response: obeys commands(6). Verbal Response: sp4 oriented(5). Total: 15. MDM: 03:57 Patient medically screened. sp4 06:56 Differential diagnosis: closed head injury, contusion, multiple trauma, sprain, strain. sp4 Data reviewed: vital signs, nurses notes, EMS record, old medical records, lab test result(s), EKG, radiologic studies, CT scan, plain films. Consideration of Admission/Observation Patient was admitted/placed on observation. Escalation of care including admission/observation considered. Management of patient was discussed with the following: Hospitalist: Dr. Giovanni Rai with admission team . 06:56 ED course: CT head revealed no acute intracranial abnormality. X-ray of pelvis revealed sp4 no acute fractures. Chest x-ray revealed no acute findings in the chest. Chemistry panel is normal, CBC reveals some decrease in hemoglobin to 9.8 from previous 12-13 baseline. Rectal exam reveals no sign of rectal bleeding or melena. Troponin negative. proBNP slightly elevated may be suggesting early congestive heart failure. Patient was discussed with admission hospitalist and admitted for further work-up. . 09/12 03:56 Order name: Basic Metabolic Panel; Complete Time: 05:25 sp4 09/12 03:56 Order name: CBC with Diff; Complete Time: 05:25 [facility] 09/12 03:56 Order name: LFT's; Complete Time: 05:25 [facility] 09/12 03:56 Order name: Magnesium; Complete Time: 05:25 [facility] 09/12 03:56 Order name: NT PRO-BNP; Complete Time: 05:25 [facility] 09/12 03:56 Order name: PT-INR; Complete Time: 05:25 [facility] 09/12 03:56 Order name: Troponin HS; Complete Time: 05:25 [facility] 09/12 03:56 Order name: CK; Complete Time: 05:25 [facility] 09/12 04:33 Order name: CBC Smear Scan; Complete Time: 05:25 [facility] 09/12 06:53 Order name: TSH [facility] 09/12 06:54 Order name: T4 Free [facility] 09/12 10:11 Order name: Creatine Phosphokinase [facility] 09/12 10:11 Order name: Magnesium [facility] 09/12 10:11 Order name: NT PRO-BNP [facility] 09/12 10:11 Order name: Phosphorus [facility] 09/12 10:11 Order name: Urinalysis w/ reflexes [facility] 09/12 10:11 Order name: Basic Metabolic Panel [facility] 09/12 10:11 Order name: Basic Metabolic Panel [facility] 09/12 10:11 Order name: CBC with Automated Diff [facility] 09/12 10:11 Order name: CBC with Automated Diff [facility] 09/12 10:11 Order name: Lipid Profile [facility] 09/12 10:11 Order name: Lipid Profile [facility] 09/12 03:56 Order name: XRAY Chest (1 view) [facility] 09/12 03:56 Order name: CT Head Brain wo Cont [facility] 09/12 03:57 Order name: Pelvis XRAY [facility] 09/12 15:18 Order name: US [facility] 09/12 03:56 Order name: EKG; Complete Time: 03:56 4 09/12 10:11 Order name: Heart Healthy [facility] 09/12 10:14 Order name: Physical Therapy Consult [facility] 09/12 03:56 Order name: Cardiac monitoring; Complete Time: 03:56 [facility] 09/12 03:56 Order name: EKG - Nurse/Tech; Complete Time: 03:56 [facility] 09/12 03:56 Order name: IV Saline Lock; Complete Time: 03:56 [facility] 09/12 03:56 Order name: Labs collected and sent; Complete Time: 03:56 [facility] 09/12 03:56 Order name: O2 Per Protocol; Complete Time: 03:56 [facility] 09/12 03:56 Order name: O2 Sat Monitoring; Complete Time: 03:56 4 EC:45 Rate is 58 beats/min. Rhythm is regular, Sinus bradycardia. Left axis deviation noted. sp4 MD interval is prolonged. QRS interval is normal. QT interval is normal. No Q waves. No ST changes noted. Clinical impression: No evidence of ischemia. Interpreted by me. Administered Medications: 04:31 Drug: Geodon IM 20 mg Route: IM; Site: right deltoid; ll3 05:35 Follow up: Response: No adverse reaction rv 05:34 Drug: Ketorolac IVP 30 mg Route: IVP; Site: right forearm; rv 06:51 Follow up: Response: No adverse reaction; Marked relief of symptoms rv 05:34 Drug: Ondansetron PO 4 mg Route: PO; rv 06:51 Follow up: Response: No adverse reaction rv 05:35 Drug: [place] PO 10 mg-325 mg 1 tabs Route: PO; rv 06:51 Follow up: Response: No adverse reaction; Marked relief of symptoms rv 07:08 Drug: Solu-CORTEF IVP 100 mg Route: IVP; Site: right forearm; ll3 07:08 Drug: Keppra IV 1000 mg Route: IV; Rate: bolus; Site: right forearm; ll3 Disposition Summary: 09/12/22 07:02 Hospitalization Ordered Hospitalization Status: Observation sp4 Provider: Joshua Davila sp4 Location: Telemetry/MedSurg (observation) sp4 Condition: Stable sp4 Problem: new sp4 Symptoms: are unchanged sp4 Bed/Room Type: Standard sp4 Room Assignment: 405(09/12/22 18:39) dw Diagnosis - Muscle weakness (generalized) sp4 - Acute generalized weakness, loss of balance, multiple falls, physical sp4 deconditioning, history of epilepsy, acute encephalopathy Forms: - Medication Reconciliation Form sp4 - SBAR form sp4 NIH Stroke Scale - NIH Stroke Score Date: 09/12/2022 Time: 06:45 Total Score = 0 10. Dysarthria (speech clarity - read or repeat words) - 0(Normal) 11. Extinction and Inattention (visual/tactile/auditory/spatial/personal) - 0(No abnormality) 1a. Level of Consciousness (LOC) - 0(Alert) 1b. Level of Consciousness (LOC) (Month \T\ Age) - 0(Both) 1c. LOC Commands (Open \T\ Closes Eyes/Color Laboratory Technician) - 0(Both) 2. Best Gaze (Lateral Gaze Paresis) - 0(Normal) 3. Visual Field Loss - 0(No visual loss) 4. Facial Palsy - 0(Normal) 5a. Left Arm: Motor (10-second hold) - 0(No drift) 5b. Right Arm: Motor (10-second hold) - 0(No drift) 6a. Left Leg: Motor (5-second hold - always test supine) - 0(No drift) 6b. Right Leg: Motor (5-second hold - always test supine) - 0(No drift) 7. Limb Ataxia (finger/nose \T\ heel/arce - test with eyes open) - 0(Absent) 8. Sensory Loss (pinprick arms/legs/face) - 0(Normal) 9. Best Language: Aphasia (description/naming/reading) - 0(No aphasia) Initials: sp4 Signatures: Dispatcher [employer] Argenis Coffey RN RN dw Vicente, Ronaldo, RN RN rv Loubet, Lynsea, RN RN ll3 Wild Coulter MD MD sp4 Corrections: (The following items were deleted from the chart) 18:39 07:02 sp4 dw
--- NOTE | 2022-09-12 07:03 | ER ---
Nurse's Notes [facility] Name: Bryan Graf Age: 71 yrs Sex: Male : 1950 Arrival Date: 09/12/2022 Time: 03:41 Bed 2 Private MD: Diagnosis: Muscle weakness (generalized);Acute generalized weakness, loss of balance, multiple falls, physical deconditioning, history of epilepsy, acute encephalopathy Presentation: 09/12 03:43 Chief complaint: EMS states: bilateral leg pain x 7 days. worse tonight. Coronavirus rv screen: Vaccine status: Patient reports receiving the 2nd dose of the covid vaccine. Date 2020. Ebola Screen: Patient negative for fever greater than or equal to 101.5 degrees Fahrenheit, and additional compatible Ebola Virus Disease symptoms Patient denies exposure to infectious person. Patient denies travel to an Ebola-affected area in the 21 days before illness onset. Initial Sepsis Screen: Does the patient meet any 2 criteria? No. Patient's initial sepsis screen is negative. Does the patient have a suspected source of infection? No. Patient's initial sepsis screen is negative. Risk Assessment: Do you want to hurt yourself or someone else? Patient reports no desire to harm self or others. Onset of symptoms was September 04, 2022. 03:43 Method Of Arrival: EMS: [facility] rv 03:43 Acuity: GELACIO 3 rv Triage Assessment: 03:45 General: Appears uncomfortable, Behavior is calm, cooperative. Pain: Complains of pain rv in right leg and left leg Pain currently is 8 out of 10 on a pain scale. Neuro: Level of Consciousness is awake, alert, obeys commands, Oriented to person, place, time, situation. Cardiovascular: Capillary refill Rhythm is sinus bradycardia. Respiratory: Airway is patent Respiratory effort is even, unlabored. GI: No signs and/or symptoms were reported involving the gastrointestinal system. : No signs and/or symptoms were reported regarding the genitourinary system. Derm: No signs and/or symptoms reported regarding the dermatologic system. Historical: - Allergies: 03:45 Aspirin; rv 03:45 PENICILLINS; rv - Home Meds: 03:45 Keppra Oral [Active]; rv - PMHx: 03:45 Chronic pain; COPD; CVA; Hypertension; Migraine; Pneumonia; Seizures; swelling and pain rv to L lower leg; - PSHx: 03:45 heart surgery; rv - Immunization history:: Adult Immunizations up to date. - Social history:: Smoking status: Patient reports the use of cigarette tobacco products, smokes one pack cigarettes per day. Screenin:[address] [facility] ED Fall Risk Assessment (Adult) History of falling in the last 3 months, rv including since admission No falls in past 3 months (0 pts). Abuse screen: Denies threats or abuse. Denies injuries from another. Nutritional screening: No deficits noted. Tuberculosis screening: No symptoms or risk factors identified. Assessment: 07:19 Reassessment: Patient appears in no apparent distress at this time. Patient and/or ph family updated on plan of care and expected duration. Pain level reassessed. Pt resting quietly w/ stable VS, c/o pain to bilateral legs. 08:39 Reassessment: Patient appears in no apparent distress at this time. Patient and/or ph family updated on plan of care and expected duration. Pain level reassessed. 10:05 Reassessment: Patient appears in no apparent distress at this time. Patient and/or ph family updated on plan of care and expected duration. Pain level reassessed. Pt asleep, awakens slowly to repeated verbal stimuli, hospitalist at bedside to speak w/ pt, pt oriented to person, place, and current year, quickly falls back asleep after answering questions. Vital Signs: 03:43 BP 153 / 59; Pulse 59; Resp 18; Temp 98; Pulse Ox 99% ; Weight 70.5 kg (M); Height 5 rv ft. 8 in. ; Pain 8/10; 05:02 BP 162 / 86; Pulse 66; Resp 14; Pulse Ox 99% on R/A; ll3 06:15 BP 154 / 59; Pulse 69; Resp 16; Pulse Ox 100% on R/A; ll3 07:20 BP 154 / 59; Pulse 58; Resp 14; Pulse Ox 97% on R/A; ph 08:39 BP 149 / 61; Pulse 47; Resp 14; Pulse Ox 95% on R/A; ph 03:43 Body Mass Index 23.63 (70.50 kg, 172.72 cm) rv 03:43 Pain Scale: Adult rv [place] Coma Score: 06:45 Eye Response: spontaneous(4). Motor Response: obeys commands(6). Verbal Response: sp4 oriented(5). Total: 15. NIH Stroke Scale Scores: 06:45 NIHSS Score: 0 sp4 ED Course: 03:43 Patient arrived in ED. sb4 03:43 Jesse Ta, RN is Primary Nurse. rv 03:45 Triage completed. rv 03:46 Arm band placed on right wrist. rv 03:47 Patient has correct armband on for positive identification. Placed in gown. Bed in low rv position. Call light in reach. Side rails up X 1. Client placed on continuous cardiac and pulse oximetry monitoring. NIBP monitoring applied. well treatment offsider on. 03:47 No provider procedures requiring assistance completed. rv 03:50 Wild Coulter MD is Attending Physician. sp4 03:56 EKG done, by ED staff, reviewed by Wild Coulter MD. jw7 04:05 Inserted saline lock: 20 gauge in right forearm, using aseptic technique. Blood rv collected. 04:15 XRAY Chest (1 view) In Process Unspecified. EDMS 04:15 Pelvis XRAY In Process Unspecified. EDMS 05:18 CT Head Brain wo Cont In Process Unspecified. EDMS 07:02 Joshua Davila is Hospitalizing Provider. sp4 12:39 Patient admitted, IV remains in place. ph Administered Medications: 04:31 Drug: Geodon IM 20 mg Route: IM; Site: right deltoid; ll3 05:35 Follow up: Response: No adverse reaction rv 05:34 Drug: Ketorolac IVP 30 mg Route: IVP; Site: right forearm; rv 06:51 Follow up: Response: No adverse reaction; Marked relief of symptoms rv 05:34 Drug: Ondansetron PO 4 mg Route: PO; rv 06:51 Follow up: Response: No adverse reaction rv 05:35 Drug: [place] PO 10 mg-325 mg 1 tabs Route: PO; rv 06:51 Follow up: Response: No adverse reaction; Marked relief of symptoms rv 07:08 Drug: Solu-CORTEF IVP 100 mg Route: IVP; Site: right forearm; ll3 07:08 Drug: Keppra IV 1000 mg Route: IV; Rate: bolus; Site: right forearm; ll3 Medication: 03:47 VIS not applicable for this client. rv Outcome: 07:02 Decision to Hospitalize by Provider. sp4 19:28 Admitted to Tele accompanied by tech, via stretcher, room 405, Report called to Edil graf RN 19:28 Condition: good 19:28 Instructed on the need for admit. 19:28 Patient left the ED. rv NIH Stroke Scale - NIH Stroke Score Date: 09/12/2022 Time: 06:45 Total Score = 0 10. Dysarthria (speech clarity - read or repeat words) - 0(Normal) 11. Extinction and Inattention (visual/tactile/auditory/spatial/personal) - 0(No abnormality) 1a. Level of Consciousness (LOC) - 0(Alert) 1b. Level of Consciousness (LOC) (Month \T\ Age) - 0(Both) 1c. LOC Commands (Open \T\ Closes Eyes/Safety Inspector) - 0(Both) 2. Best Gaze (Lateral Gaze Paresis) - 0(Normal) 3. Visual Field Loss - 0(No visual loss) 4. Facial Palsy - 0(Normal) 5a. Left Arm: Motor (10-second hold) - 0(No drift) 5b. Right Arm: Motor (10-second hold) - 0(No drift) 6a. Left Leg: Motor (5-second hold - always test supine) - 0(No drift) 6b. Right Leg: Motor (5-second hold - always test supine) - 0(No drift) 7. Limb Ataxia (finger/nose \T\ heel/arce - test with eyes open) - 0(Absent) 8. Sensory Loss (pinprick arms/legs/face) - 0(Normal) 9. Best Language: Aphasia (description/naming/reading) - 0(No aphasia) Initials: sp4 Signatures: Dispatcher [employer] EDMN Keerthi Crum RN JOSEPH Jesse Ta, RN Shanti Laboy RN JOSEPH [email or web address] Dede Seay Sophia, PA-C PAWild Hernandez MD MD sp4
[2022-09-12] MEDS ORDERED: LEVETIRACETAM 500 MG/5 ML VIAL IV ONE (07:04)
[2022-09-12] MEDS ORDERED: NA CHLORIDE 0.9% 100 ML ONE (07:04)
[2022-09-12] MEDS ORDERED: HYDROCORTISONE SUC 100 MG INJ ONE (07:04)
[2022-09-12] MEDS ORDERED: ACETAMINOPHEN 325 MG TABLET PO PRN (10:04)
[2022-09-12] MEDS ORDERED: HYDROCODONE/APAP 5/325 MG TAB PO PRN (10:04)
[2022-09-12] MEDS ORDERED: ONDANSETRON 4 MG/2 ML VIAL IV PRN (10:07)
[2022-09-12] MEDS ORDERED: HYDRALAZINE HCL 20 MG/ML VIAL IV PRN (10:09)
--- NOTE | 2022-09-12 10:16 | P.HP ---
Certification for Inpatient Patient admitted to: Inpatient With expected LOS: >2 Midnights Patient will require the following post-hospital care: None Practitioner: I am a practitioner with admitting privileges, knowledge of patient current condition, hospital course, and medical plan of care. Services: Services provided to patient in accordance with Admission requirements found in Title 42 Section 412.3 of the Code of Federal Regulations Patient History Date of Service: 09/12/22 Reason for admission: BLE pain\weakness History of Present Illness: Patient is a 71-year-old with a past medical history significant for COPD, CVA, hypertension, seizures, who presents with complaint of bilateral lower extremity pain. Patient not cooperative and unwilling to answer questions. Per nursing staff patient has not been compliant with home medications. Nursing staff also reported that patient complained of fatigue and generalized weakness. No other signs and symptoms reported. Symptoms are aggravated or relieved by nothing. Patient was brought to the hospital for medical evaluation. Allergies Penicillins Allergy (Severe, Verified 11/25/16 22:08) Anaphylaxis aspirin Adverse Reaction (Mild, Verified 11/25/16 22:08) Itching Home Medications: Divalproex Sodium [Depakote] 500 mg PO BID 11/27/15 levETIRAcetam [Keppra*] 1,000 mg PO BID 11/27/15 Gabapentin 1 tab PO BID 09/22/20 Oxycodone HCl 1 tab PO QID PRN 09/22/20 Albuterol Inhaler [Ventolin Inhaler*] 2 puff IH TID PRN #1 hfa.aer.ad 09/23/20 carvediloL [Coreg*] 3.125 mg PO BID 6AM 6PM #60 tab 09/23/20 predniSONE [Deltasone*] 10 mg PO SEECOM #21 tab 09/23/20 Atorvastatin Calcium [Lipitor] 80 mg PO BEDTIME #30 tab 05/22/22 Clopidogrel Bisulfate [Plavix*] 75 mg PO DAILY #30 tab 05/22/22 - Past Medical/Surgical History Diabetic: No -: Previous CVA -: Previous TIA -: Seizure disorder -: Hyperlipidemia -: Chronic headaches -: Chronic back pain, DDD/DJD of the spine, 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 Mother -: Diabetes - Social History Smoking Status: Current every day smoker Alcohol use: No CD- Drugs: No Caffeine use: Yes Place of Residence: Home Review of Systems is unable to be obtained (Unable to assess. Patient not answering questions.) Physical Examination - Physical Exam General: Alert, In no apparent distress, Oriented x3 HEENT: Atraumatic, PERRLA, Mucous membr. moist/pink, EOMI, Sclerae nonicteric Neck: Supple, 2+ carotid pulse no bruit, No LAD, Without JVD or thyroid abnormality Respiratory: Clear to auscultation bilaterally, Normal air movement Cardiovascular: No edema, Regular rate/rhythm, Normal S1 S2 Capillary refill: <2 Seconds Gastrointestinal: Normal bowel sounds, Non-distended, No tenderness Musculoskeletal: No clubbing, No swelling, No tenderness Integumentary: No rashes, No significant lesion, No tenderness/swelling, Other (Bruises) Neurological: Normal gait, Normal speech, Normal tone, Normal affect Lymphatics: No axilla or inguinal lymphadenopathy - Studies Laboratory Data (last 24 hrs) 09/12/22 04:00: PT 12.5, INR 1.14 09/12/22 04:00: WBC 7.30, Hgb 9.8 L, Hct 31.2 L, Plt Count 400 09/12/22 04:00: Sodium 141, Potassium 4.2, BUN 17, Creatinine 0.66 L, Glucose 90, Magnesium 2.2, Total Bilirubin 0.2, AST 7 L, ALT 11 L, Alkaline Phosphatase 62 Assessment and Plan - Plan --Bilateral lower extremity pain. Patient has a history of bilateral lower extr emity pain. We will get arterial Doppler to r\o PVD We will manage pain with current pain medication regimen. -- Generalized weakness. CT head unremarkable for any acute intracranial abnormality. PT eval and treat. Continue supportive care -- COPD. Stable. Continue home medication. --History of CVA. Continue aspirin, Plavix and statin. -- Hyperlipidemia. Continue statin. --History of seizures. Patient noncompliant with home medication. Continue home medication. Seizure precautions. --Peripheral neuropathy. Continue home medication. --Hypertension. Poorly controlled. Continue home medication with hydralazine as needed -- Anemia of chronic disease. H&H stable. We will continue to monitor hemoglobin and transfuse if less than 7.0. --DVT prophylaxis with Lovenox subQ Discharge Plan: Home Plan to discharge in: Greater than 2 days - Advance Directives Does patient have a Living Will: No Does patient have a Durable POA for Healthcare: No - Code Status/Comfort Care Code Status Assessed: Yes Physician Review: Patient Assessed, Agree with Above Assessment and Plan Critical Care: No
[2022-09-12] MEDS: ASPIRIN 81 MG CHEWABLE TABLET PO SCH (10:30)
--- NOTE | 2022-09-12 10:30 | RAD REPORT ---
EXAM DESCRIPTION: CT - Head Brain Wo Cont - 09/12/2022 6:56 am CLINICAL HISTORY: The patient is 71 years old and is Male; [facility] MAIN TECHNIQUE: Axial computed tomography images of the head/brain without intravenous contrast. Sagitt al and coronal reformatted images were created and reviewed. This CT exam was performed using one o r more of the following dose reduction techniques: automated exposure control, adjustment of the mA and/or kV according to patient size, and/or use of iterative reconstruction technique. COMPARISON: 05/21/2022 CT head without contrast FINDINGS: BRAIN: Mild to moderate global cerebral atrophy with commensurate sulcal and ventricular enlargement, not greater than expected for patient age. No extra-axial fluid collection. No intracranial hemorrhage. No transtentorial herniation. No focal juarez-white matter differentiation abnormality. MIDLINE SHIFT: No midline shift. VENTRICLES: See above. BONES/JOINTS: Small air-fluid level noted in the left maxillary sinus. Mild leftward nasal septal d eviation and left nasal septal spur. No fracture of the calvarium or visualized facial bones. SOFT TISSUES: Resolution of previously demonstrated anterior midline frontal scalp hematoma. SINUSES: Unremarkable as visualized. No acute sinusitis. MASTOID AIR CELLS: Unremarkable as visualized. No mastoid effusion. IMPRESSION: 1. No acute intracranial abnormality. 2. Chronic and senescent changes, not greater than expected for patient age. Electronically signed by: Harish Cope MD 09/12/2022 5:37 AM CDT Due to temporary technical issues with the PACS/Fluency reporting system, reports are being signed by the in house radiologist without review as a courtesy to ensure prompt reporting. The interpreting r adiologist is fully responsible for the content of the report.
--- NOTE | 2022-09-12 10:36 | RAD REPORT ---
EXAM DESCRIPTION: RAD - Pelvis - 09/12/2022 4:14 am CLINICAL HISTORY: The patient is 71 years old and is Male; fall, leg pain left [facility] MAIN TECHNIQUE: Frontal view of the pelvis. COMPARISON: No relevant prior studies available. FINDINGS: BONES/JOINTS: Unremarkable. No acute fracture. No dislocation. SOFT TISSUES: Unremarkable. VASCULATURE: Dense vascular calcifications. IMPRESSION: No acute findings in the pelvis. Electronically signed by: Harish Cope MD 09/12/2022 4:53 AM CDT Due to temporary technical issues with the PACS/Fluency reporting system, reports are being signed by the in house radiologist without review as a courtesy to ensure prompt reporting. The interpreting r adiologist is fully responsible for the content of the report.
--- NOTE | 2022-09-12 10:40 | RAD REPORT ---
EXAM DESCRIPTION: RAD - Chest Single View - 09/12/2022 4:14 am CLINICAL HISTORY: The patient is 71 years old and is Male; COPD [facility] MAIN TECHNIQUE: Frontal view of the chest. COMPARISON: No relevant prior studies available. FINDINGS: LUNGS: Bilateral calcified pulmonary granulomas. Prominence of the bilateral pulmonary vasculature with no focal consolidation. PLEURAL SPACE: No pleural effusion. No pneumothorax. HEART: Coronary artery bypass graft (CABG). MEDIASTINUM: Cardiomediastinal silhouette upper limits of normal size. BONES/JOINTS: Median sternotomy. VASCULATURE: Calcified atherosclerosis of the thoracic aorta. IMPRESSION: No acute findings in the chest. Electronically signed by: Harish Cope MD 09/12/2022 4:51 AM CDT Due to temporary technical issues with the PACS/Fluency reporting system, reports are being signed by the in house radiologist without review as a courtesy to ensure prompt reporting. The interpreting r adiologist is fully responsible for the content of the report.
--- NOTE | 2022-09-12 15:17 | RAD REPORT ---
EXAM DESCRIPTION: US - Lower Extremity Arterial Bilat - 09/12/2022 1:36 pm CLINICAL HISTORY: BLE pain COMPARISON: Lower Extremity Artery [facility] dated 01/21/2017 TECHNIQUE: Bilateral lower extremity arterial Doppler examination was performed with braydon arce FINDINGS: Biphasic waveforms are seen throughout both lower extremity arterial systems to the level of the dorsalis pedis arteries, with the exception of the left posterior tibial artery which demonstr ates monophasic flow. Up to moderate calcified atherosclerotic plaque along the femoral arteries more so on the left. IMPRESSION: Evidence of mild peripheral vascular disease.
[2022-09-12 15:36] LABS: Magnesium 2.3 mg/dL (1.6-2.4); Phosphorus 3.7 mg/dL (2.5-4.9)
[2022-09-12 15:41] LABS: Thyroid Stimulating Hormone 1.1 uIU/mL (0.358-3.740)
[2022-09-12] MEDS ORDERED: HYDROCODONE/APAP 5/325 MG TAB ONE (15:45)
[2022-09-12] MEDS ORDERED: ONDANSETRON 4 MG/2 ML VIAL ONE (17:00)
[2022-09-12 18:46] VITALS: BMI 23.6
[2022-09-12] MEDS: OXYCODONE HCL 5 MG TAB PO PRN (21:38)
[2022-09-12] MEDS: GABAPENTIN 300 MG CAP PO SCH (21:38)
[2022-09-13 02:04] LABS: Specific Gravity 1.029 (1.005-1.030); Urine Bacteria None Seen /HPF (<20); Urine Bilirubin NEGATIVE (Negative); Urine Blood Trace (Negative); Urine Clarity Clear (Clear); Urine Color Light-Yellow (Yellow); Urine Glucose NEGATIVE (Negative); Urine Mucus Slight /HPF (None Seen); Urine Protein TRACE (Negative); Urine RBC None Seen /HPF (None Seen); Urine Urobilinogen Normal (Normal); Urine pH 5.5 (5.0-7.0)
[2022-09-13 05:04] VITALS: TEMP 97.9
[2022-09-13 05:27] LABS: Absolute Lymphocytes (CBC) 2.6 K/uL (0.7-4.9); Hematocrit 28.7 % (39.6-49.0); Lymphocytes % 37.4 % (15.3-44.8); MCV 71.7 fL (80-100)
[2022-09-13 05:47] LABS: Potassium 3.7 mEq/L (3.5-5.1)
[2022-09-13] MEDS: OXYCODONE HCL 5 MG TAB PO PRN (08:07)
[2022-09-13] MEDS: ASPIRIN 81 MG CHEWABLE TABLET PO SCH (08:09)
[2022-09-13] MEDS: GABAPENTIN 300 MG CAP PO SCH (08:09)
[2022-09-13 08:56] VITALS: BP 131/60
[2022-09-13] MEDS ORDERED: ENOXAPARIN 40 MG/0.4 ML SQ SCH (09:00)
[2022-09-13] MEDS ORDERED: POTASSIUM CL SA 10 MEQ TAB PO ONE (09:00)
[2022-09-13 09:39] VITALS: O2SAT 91
--- NOTE | 2022-09-13 12:11 | EKG ---
Test Date: 2022-09-12 Test Time: 03:47:49 Cycle Consultant: SPARKLE MEASUREMENT RESULTS: Intervals: Rate: 58 [place]: 228 QRSD: 100 QT: 426 QTc: 418 [place]: P: 80 [place]: 228 QRS: -37 T: 37 INTERPRETIVE STATEMENTS: Sinus bradycardia with 1st degree AV block Left axis deviation Abnormal ECG Compared to ECG 05/20/2022 13:52:19 Left-axis deviation now present Sinus rhythm no longer present ST (T wave) deviation no longer present Possible ischemia no longer present Electronically Signed On 09-13-22 12:06:16 CDT by Manuelito Nolan
--- NOTE | 2022-09-13 13:29 | P.DS ---
Admission Date: 09/12/22 Discharge Date: 09/13/22 Reason for Admission: BLE pain\weakness - Problems (1) Generalized weakness Current Visit: Yes Status: Acute (2) Fall Current Visit: Yes Status: Acute (3) History of CVA (cerebrovascular accident) Current Visit: Yes Status: Acute (4) RLS (restless legs syndrome) Onset Date: 05/06/17 Current Visit: No Status: Chronic (5) Seizure Onset Date: 08/09/16 Current Visit: No Status: Chronic Brief History of Present Illness: Patient is a 71-year-old with a past medical history significant for COPD, CVA, hypertension, seizures, who presents with complaint of bilateral lower extremity pain and generalized weakness. He reports that he fell. Pr nursing staff patient has not been compliant with home medications. Nursing staff also reported that patient complained of fatigue and generalized weakness. Patient was brought to the hospital for medical evaluation. Work-up done in the ED was unremarkable. Patient was placed in observation for further evaluation. Hospital Course: Patient placed under observation on the medical floor and treated with supportive measures. His only complaint was intermittent pain which started the bilateral gluteal area and radiate to the feet. Symptoms likely correlate with sciatica. He tolerated his diet. He was able to ambulate with a walker. Patient request to go home. He is discharged to home per his request and recommended home health for therapy. Vital Signs/Physical Exam: Temp Pulse Resp BP Pulse Ox 97.9 F 60 16 131/60 95 09/13/22 08:00 09/13/22 08:00 09/13/22 09:07 09/13/22 08:00 09/13/22 09:07 General: Alert, In no apparent distress, Oriented x3 HEENT: Mucous membr. moist/pink Neck: JVD not distended Respiratory: Clear to auscultation bilaterally, Normal air movement Cardiovascular: Regular rate/rhythm, Normal S1 S2 Gastrointestinal: Soft and benign, Non-distended Musculoskeletal: No swelling Integumentary: No rashes, No cyanosis Neurological: Normal strength at 5/5 x4 extr Laboratory Data at Discharge: WBC 7.10 thou/uL (4.3-10.9) 09/13/22 04:23 Hgb 9.0 g/dL (13.6-17.9) L D 09/13/22 04:23 Hct 28.7 % (39.6-49.0) L 09/13/22 04:23 Plt Count 327 thou/uL (152-406) 09/13/22 04:23 PT 12.5 SECONDS (9.5-12.5) 09/12/22 04:00 INR 1.14 09/12/22 04:00 Sodium 142 mEq/L (136-145) 09/13/22 04:23 Potassium 3.7 mEq/L (3.5-5.1) 09/13/22 04:23 BUN 22 mg/dL (7-18) H 09/13/22 04:23 Creatinine 0.56 mg/dL (0.70-1.30) L 09/13/22 04:23 Glucose 82 mg/dL (74-106) 09/13/22 04:23 Phosphorus 3.7 mg/dL (2.5-4.9) 09/12/22 14:03 Magnesium 2.3 mg/dL (1.6-2.4) 09/12/22 14:03 Total Bilirubin 0.2 mg/dL (0.2-1.0) 09/12/22 04:00 AST 7 U/L (15-37) L 09/12/22 04:00 ALT 11 U/L (16-61) L 09/12/22 04:00 Alkaline Phosphatase 62 U/L (45-117) 09/12/22 04:00 Triglycerides 102 mg/dL (<150) 09/13/22 04:23 Cholesterol 142 mg/dL (<200) 09/13/22 04:23 HDL Cholesterol 32 mg/dL (40-60) L 09/13/22 04:23 Cholesterol/HDL Ratio 4.44 09/13/22 04:23 Home Medications: levETIRAcetam [Keppra*] 1,000 mg PO BID 11/27/15 Gabapentin 1 tab PO BID 09/22/20 Oxycodone HCl 1 tab PO QID PRN 09/22/20 Diet: AHA Activity: Ad jose luis Time spent managing pt's care (in minutes): 28
== END 2022-09-13 13:43 | disposition home or self-care (01) ==
LOC: ER 03:41 → INTOOBSV 09:57 → ERHOLD 09:57 → 4TH 14:24 → ERHOLD 15:12 → 4TH 19:17
PROVIDERS: ADMIT Internal Medicine; ATTEND Internal Medicine
DX: R53.1 Weakness (principal); M79.605 Pain in left leg; M79.604 Pain in right leg; J44.9 Chronic obstructive pulmonary disease, unspecified; I10 Essential (primary) hypertension; R56.9 Unspecified convulsions; F17.210 Nicotine dependence, cigarettes, uncomplicated; E78.5 Hyperlipidemia, unspecified; G62.9 Polyneuropathy, unspecified; N18.9 Chronic kidney disease, unspecified; D63.1 Anemia in chronic kidney disease; G25.81 Restless legs syndrome; Z91.81 History of falling; Z86.73 Personal history of transient ischemic attack (TIA), and cerebral infarction without residual deficits; Z91.148 Patient's other noncompliance with medication regimen for other reason; Z88.0 Allergy status to penicillin; Z88.6 Allergy status to analgesic agent
CPT/HCPCS: 93005; 85025 ×2; 81001; 80048 ×2; 36415 ×2; 83735 ×2; 82550 ×2; 84100; 85610; 80061; 80076; 84443; 84484; 84439; 83880 ×2; 70450; 71045; 72170; 93925; 96375; 96372; 96374; 99285; Q0162; J1953; J1650; J3486; J1720; J2405; G0378 ×4

== ENCOUNTER 2022-11-09 18:26 | Emergency (ER) | payer OTHER ==
--- OUTSIDE RECORDS SUMMARY | 2022-11-09 18:40 | XMS REPORT | Continuity of Care Document ---
:1950 Author Organization [facility] t Address [address] [facility] [place] [address] Care Team Providers Name Role Phone Uli Botello Rebecca Primary Care Physician MIKI NICHOLS Attending Clinician Unavailable CLARY BRAY Attending Clinician Unavailable AUGUSTIN DC Attending Clinician Unavailable MAXIMILIANO RUSSELL Attending Clinician Unavailable AUGUSTIN GUAMAN Attending Clinician Unavailable HENRY BULL Attending Clinician Unavailable MIKI NICHOLS Admitting Clinician Unavailable CLARY BRAY Admitting Clinician Unavailable AUGUSTIN DC Admitting Clinician Unavailable MAXIMIILANO RUSSELL Admitting Clinician Unavailable AUGUSTIN GUAMAN Admitting [...] 8-25 [facility] status status 00:[facility]: [facility] 00 [place] Ptosis, Ptosis, Disease Active [facility] left left 8-25 [facility] 00:[facility] 00 Center S/P CABG x S/P CABG x Disease [...] embolism embolism 8-14 [facility] 00:[facility]: Medical 00 [place] Left-sided Left-sided Disease Active [facility] muscle muscle 6-26 [facility] weakness weakness 00:00: Medica l 00 [place] Muscle Muscle Disease Active [facility] cramps cramps 6-26 [facility] 00:[facility]: Medical [place] Tension Tension Disease Active [facility] type type 6-26 [facility] headache headache 00:00: Medica l 00 Center CVA CVA Disease Recurre [facility] (cerebral (cerebral nce 6-24 [facility] vascular vascular 00:00: Medica l accident) accident) 00 Cent er Seizure Seizure Disease Recurre [facility] disorder disorder nce 6-24 [facility] 00:[facility]: Medical 00 Center History of History of Disease Recurre [facility] atrial atrial nce 6-24 [facility] fibrillati fibrillati 00:00: Me dical on on Center Chronic Chronic Disease Active [facility] anticoagul anticoagul 6-24 Thao kes ation ation 00:00: Medical 00 [place] Cellulitis Cellulitis Disease Active [facility] of of 3-19 [facility] 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 Rehabilita tion Dysarthria Problem Active 2011-10-03 M emoria Dysarthria 08:09:33 l Active [place] Problem 10/03/2011 [facility] Weakness Weakness Problem Active 2011-10-03 Memoria Active 08:09:33 l Problem Miguel 10/03/2011 [facility] CVA CVA Diagnosis Active 2011-09-21 Mem oria [...] INS 3-16 [facility] 00:[facility]: Medical 00 Center aspirin aspirin Active Memoria l Miguel codeine codeine Active Memoria l [place] penicill penicill Active Memori a ins ins l [place] Family History Family Member Diagnosis Comments Start Date Stop Date Source Natural mother Diabetes [facility] Social History Social Habit Start Date Stop Date Quantity Comments Source History of tobacco Cigarette Smoker [facility] Alcohol intake 2016-12-13 2016-12-[address] [facility] St Janae 00:00:00 00:00:00 non-drinker of Medical Ce nter alcohol (finding) Cigarettes smoked 2016-11-26 2016-11-[address] [facility] current (pack per 00:00:00 00:00:00 Medical Center day) - Reported Tobacco use and 2016-11-26 2016-11-26 [address] [facility] exposure 00:00:00 00:00:00 non-user Medical Center Sex Assigned At [address] [facility] St Thao reyes 00:00:00 00:00:00 Medical Center Smoking Status Start Date Stop Date Source Smokes tobacco daily 2016-11-26 00:00:00 [facility] Medications Ordered Filled Start Stop Current [...] Take [address] l (BROVANA) - (15 mcg [facility] 15 mcg/2 mL 00:00: total) by M edical nebulizer 00 nebulizati Cent er solution on 2 (two) times daily. rivaroxaban 2017-0 Yes 15mg Take [address] [facility] (XARELTO) -08 tablet (15 Luke s 15 mg Tab [...] 00 by mouth Center nightly. melatonin 5 2017- Yes 5mg QD Take [address] mg Tab 9-08 tablet (5 [facility] tablet 00:00: mg total) Medica l 00 by mouth Center nightly. pantoprazol Yes 40mg QD Take [address] e 9-08 tablet (40 [facility] (PROTONIX) 00:00: mg total) Me dical 40 MG 00 by mouth Center tablet daily. Soma 2011-0 Yes 1, PO, Memoria 6-16 Substituti l 23:36: on Miguel 37 Allowed, TAB Soma 2011-0 Yes 1, PO, Memoria 6-16 Substituti l 23:36: on [place] 37 Allowed, TAB Soma 2011-0 Yes 1, [...] 6-16 PRN, as l 23:36: needed for [place] 23 pain, Substituti on Allowed, TAB OXYcodone [...] 6-15 [place] tab, PO, l 19:27: Bedtime, [place] 59 30 tab, Substituti on Allowed, TAB Ambien 5 mg 2011- Yes Meilani H 5 mg, 1 Memoria oral tablet 6-15 [place] tab, PO, l 19:27: Bedtime, [place] 59 30 tab, Substituti on Allowed, TAB Ambien 5 mg 2011-0 Yes Meilani H 5 mg, 1 Memoria oral tablet 6-15 [place] tab, PO, l 19:27: Bedtime, [place] 59 30 tab, Substituti on Allowed, TAB Ambien 5 mg 2011- Yes Meilani H 5 mg, 1 Memoria oral tablet 6-15 [place] tab, PO, l 19:27: Bedtime, [place] 59 30 tab, Substituti on Allowed, TAB Ambien 5 mg 2011- Yes Meilani H 5 mg, 1 Memoria oral tablet 6-15 [place] tab, PO, l 19:27: Bedtime, Miguel 59 30 tab, Substituti on Allowed, TAB Keppra 750 2011- Yes Meilani H 750 mg, 1 Memoria mg oral 6-15 [place] tab, PO, l tablet 19:27: Q12H, 60 [place] 52 tab, Substituti on Allowed, TAB Keppra 750 2011-0 Yes Meilani H 750 mg, 1 Memoria mg oral 6-15 [place] tab, PO, l tablet 19:27: Q12H, 60 [place] 52 tab, Substituti on Allowed, TAB Keppra 750 2011- Yes Meilani H 750 mg, 1 Memoria mg oral 6-15 [place] tab, PO, l tablet 19:27: Q12H, 60 [place] 52 tab, Substituti on Allowed, TAB Keppra 750 2011-0 Yes Meilani H 750 mg, 1 Memoria mg oral 6-15 [place] tab, PO, l tablet 19:27: Q12H, 60 [place] 52 tab, Substituti on Allowed, TAB Keppra 750 2011-0 Yes Meilani H 750 mg, 1 Memoria mg oral 6-15 [place] tab, PO, l tablet 19:27: Q12H, 60 [place] 52 tab, Substituti on Allowed, TAB famotidine 2011- Yes Meilani H 20 mg, 1 Memoria 20 mg oral 6-15 [place] tab, PO, l tablet 19:27: BID, 60 [place] 44 tab, Substituti on Allowed, TAB famotidine 2012-0 Yes Meilani H 20 mg, 1 Memoria 20 mg oral 6-15 [place] tab, PO, l tablet 19:27: BID, 60 [place] 44 tab, Substituti on Allowed, TAB famotidine 2012-0 Yes Meilani H 20 mg, 1 Memoria 20 mg oral 6-15 [place] tab, PO, l tablet 19:27: BID, 60 [place] 44 tab, Substituti on Allowed, TAB famotidine 2012-0 Yes Meilani H 20 mg, 1 Memoria 20 mg oral 6-15 [place] tab, PO, l tablet 19:27: BID, 60 [place] 44 tab, Substituti on Allowed, TAB famotidine 2012-0 Yes Meilani H 20 mg, 1 Memoria 20 mg oral 6-15 [place] tab, PO, l tablet 19:27: BID, 60 [place] 44 tab, Substituti on Allowed, TAB Colace 100 2011-0 Yes Meilani H 100 mg, 1 Memoria mg oral 6-15 [place] cap, PO, l capsule 19:27: BID, 60 [place] 40 cap, Substituti on Allowed, CAP Colace 100 2011-0 Yes Meilani H 100 mg, 1 Memoria mg oral 6-15 [place] cap, PO, l capsule 19:27: BID, 60 [place] 40 cap, Substituti on Allowed, CAP Colace 100 2011-0 Yes Meilani H 100 mg, 1 Memoria mg oral 6-15 [place] cap, PO, l capsule 19:27: BID, 60 [place] 40 cap, Substituti on Allowed, CAP Colace 100 2012-0 Yes Meilani H 100 mg, 1 Memoria mg oral 6-15 [place] cap, PO, l capsule 19:27: BID, 60 [place] 40 cap, Substituti on Allowed, CAP Colace 100 2012-0 Yes Meilani H 100 [...] tab, Substituti on Allowed, TAB Plavix 75 2011- Yes Meilani H 75 mg, 1 Memoria mg oral 6-15 [place] tab, PO, l tablet 19:27: Daily, 30 Richard n 36 tab, Substituti on Allowed, TAB atorvastati 2011- Yes Meilani H 80 mg, 1 Memoria n 80 mg 6-15 [place] tab, PO, l oral tablet 19:27: QPM, 30 Her maloney 34 tab, Substituti on Allowed, TAB atorvastati 2011-0 [...] 34 tab, Substituti on Allowed, TAB atorvastati 2011-0 Yes Meilani H 80 mg, 1 Memoria n 80 mg 6-15 [place] tab, PO, l oral tablet 19:27: QPM, 30 Her maloney 34 tab, Substituti on Allowed, TAB atorvastati 2011-0 Yes Meilani H 80 mg, 1 Memoria n 80 mg 6-15 [place] tab, PO, l oral tablet 19:27: QPM, 30 Her maloney 34 tab, Substituti on Allowed, TAB Percocet 2011-0 Yes Meilani H 1 tab, PO, Memoria [...] CR No Marcial De 6.25 mg, Memoria 6- West Route: PO, l 02:00: Bedtime, [place] 00 Start date: 09/21/11 21:00:00, Duration: 30 day, Stop date: 10/20/11 21:00:00 Ambien 2011-0 No Marcial De 5 mg, 1 Me moria 6- West tab, l 02:00: Route: PO, Miguel 00 Drug form: TAB, Bedtime, Start date: 09/21/11 21:00:00, Duration: 30 day, Stop date: 10/20/11 21:00:00 Ambien CR 2011-0 No Marcila De 6.25 mg, Memoria 6- Wset Route: PO, l 02:00: Bedtime, [place] 00 Start date: 09/21/11 21:00:00, Duration: 30 [...] 6-09 West tab, l 02:00: Route: PO, [place] 00 Drug form: TAB, Bedtime, Start date: [...] 30 day, Stop date: 10/14/11 9:00:00 Plavix 2012-0 No Jeff 75 mg, 1 [...] Jef Route: l 03:49: [place] IVP, Drug [place] 00 Form: INJ, Q8H, PRN Line Flush, [...] -02 Jef supp, l 03:49: [place] Route: [place], Richard n 00 Drug form: SUPP, Bedtime, PRN Constipati on, Start date: 09/14/11 22:49:00, Duration: 30 day, Stop date: 10/14/11 22:48:00 zolpidem 2011-0 No Marcial De 5 mg, 1 Memoria 6-02 West tab, l 03:49: Route: PO, [place] 00 Drug form: TAB, Bedtime, PRN Insomnia, Start date: 09/14/11 22:49:00, Duration: 30 day, Stop date: 10/14/11 22:48:00 Saline 2011-0 No Jeff 3 mL, Memoria Flush 0.9% 6-02 Jef Route: l 03:49: [place] IVP, Drug [place] 00 Form: INJ, Q8H, PRN Line Flush, [...] 6-02 Jef supp, l 03:49: [place] Route: [place], Richard n 00 Drug form: SUPP, Bedtime, PRN Constipati on, Start date: 09/14/11 22:49:00, Duration: 30 day, Stop date: 10/14/11 22:48:00 zolpidem 2011-0 No Marcial De 5 mg, 1 Memoria 6-02 [place] tab, l 03:49: Route: PO, [place] 00 Drug form: TAB, Bedtime, PRN Insomnia, Start date: 09/14/11 22:49:00, Duration: 30 day, Stop date: 10/14/11 22:48:00 Saline 2011-0 No Jeff 3 mL, Memoria Flush 0.9% 6-02 Jef Route: l 03:49: [place] IVP, Drug [place] 00 Form: INJ, Q8H, PRN Line Flush, [...] 6-02 Jef supp, l 03:49: [place] Route: [place], Richard n Drug form: SUPP, Bedtime, PRN Constipati on, Start date: 09/14/11 22:49:00, Duration: 30 day, Stop date: 10/14/11 22:48:00 zolpidem 2011- No Marcial De 5 mg, 1 Memoria -02 West tab, l 03:49: Route: PO, [place] 00 Drug form: TAB, Bedtime, PRN Insomnia, [...] 0 No Jeff 30 mL, Memoria Magnesia 6-02 Jef Route: PO, l 03:49: [place] Drug Form: Richard n 00 SUSP, Daily, PRN Constipati on, Start date: 09/14/11 22:49:00, Duration: 30 day, Stop date: 10/14/11 22:48:00 bisacodyl 2011-0 No Jeff 10 mg, 1 Mem oria 6-02 Jef supp, l 03:49: [place] Route: [place], Richard n 00 Drug form: SUPP, Bedtime, PRN Constipati on, Start date: 09/14/11 22:49:00, Duration: 30 day, Stop date: 10/14/11 22:48:00 zolpidem 2011-0 No Marcial De 5 mg, 1 Memoria -02 West tab, l 03:49: Route: PO, [place] 00 Drug form: TAB, Bedtime, PRN Insomnia, Start date: 09/14/11 22:49:00, Duration: 30 day, Stop date: 10/14/11 22:48:00 Saline 2011- No Jeff 3 mL, Memoria Flush 0.9% 09-14 Jef Route: l 03:49: [place] IVP, Drug Form: INJ, Q8H, PRN Line Flush, Start date: 09/14/11 22:49:00, Duration: 30 day, Stop date: 10/14/11 22:48:00, Administer at least once every 8 hoursAdmin ister at least once every 8 hours Milk of 0 No Jeff 30 mL, Memoria Magnesia - Jef Route: PO, l 03:49: [place] Drug Form: Richard n 00 SUSP, Daily, PRN Constipati on, Start date: 09/14/11 22:49:00, Duration: 30 day, Stop date: 10/14/11 22:48:00 bisacodyl 2011-0 No Jeff 10 mg, 1 Mem oria - Jef supp, l 03:49: [place] Route: [place], Richard n 00 Drug form: SUPP, Bedtime, PRN Constipati on, Start date: 09/14/11 22:49:00, Duration: 30 day, Stop date: 10/14/11 22:48:00 zolpidem 2011-0 No Marcial De 5 mg, 1 Memoria -02 West tab, l 03:49: Route: PO, Miguel Drug form: TAB, Bedtime, PRN Insomnia, Start date: 09/14/11 22:49:00, Duration: 30 day, Stop date: 10/14/11 22:48:00 Keppra 750 2011-0 No Jeff 750 mg, 3 M emoria mg oral 6-02 Jef tab, l tablet 02:00: [place] Route: PO, Herm graham 00 Drug form: TAB, Q12H, Start date: 09/14/11 21:00:00, Duration: 30 day, Stop date: 10/14/11 9:00:00 Keppra 750 2012-0 No Jeff 750 mg, 3 M emoria mg oral 6-02 Jef tab, l tablet 02:00: [place] Route: PO, Herm graham 00 Drug form: TAB, Q12H, Start date: 09/14/11 21:00:00, Duration: 30 day, Stop date: 10/14/11 9:00:00 Keppra 750 2012-0 No Jeff 750 mg, 3 M emoria mg oral 6-02 Jef tab, l tablet 02:00: [place] Route: PO, Herm graham 00 Drug form: TAB, Q12H, Start date: 09/14/11 21:00:00, Duration: 30 day, Stop date: 10/14/11 9:00:00 Keppra 750 2012-0 No Jeff 750 mg, 3 M emoria mg oral 6-02 Jef tab, l tablet 02:00: [place] Route: PO Herm graham 00 Drug form: TAB, Q12H, [...] tab, l tablet 22:00: [place] Route: PO, Gris graham 00 Drug form: TAB, BID, Start [...] tab, l tablet 22:00: [place] Route: PO, Gris graham 00 Drug form: TAB, BID, Start [...] Jef tab, l 22:00: [place] Route: PORichard Drug form: TAB, QPM, Start date: 09/14/11 17:00:00, Duration: 30 day, Stop date: 10/13/11 17:00:00 famotidine 2012-0 No Jeff 20 mg, 1 Me moria 20 mg oral 6-01 Jef tab, l tablet 22:00: [place] Route: POGris Drug form: TAB, BID, Start date: 09/14/11 [...] Jef tab, l 22:00: [place] Route: PORichard Drug form: TAB, QPM, Start date: 09/14/11 [...] Jef mL, Route: l 20:00: [place] SUB-Q, [place] Drug form: INJ, Q24H, Start date: 09/14/11 15:00:00, Duration: 30 day, Stop date: 10/13/11 9:00:00 enoxaparin 2012-0 No Jeff 40 mg, 0.4 Memoria 6-01 Jef mL, Route: l 20:00: [place] SUB-Q, [place] Drug form: INJ, Q24H, Start date: 09/14/11 15:00:00, Duration: 30 day, Stop date: 10/13/11 9:00:00 enoxaparin 2012-0 No Jeff 40 mg, 0.4 Memoria 6-01 Jef mL, Route: l 20:00: [place] SUB-Q, [place] Drug form: INJ, Q24H, Start date: 09/14/11 [...] Source Systolic (mm Hg) 2011-10-01 10:34:00 Luan Landryann Respitory Rate 2011-10-01 10:34:00 Sita Woodruff Heart Rate 2011-10-01 10:34:00 [facility] [place] Temperature Oral (F) 2011-10-01 10:34:00 97.6 F [facility] [place] Diastolic (mm Hg) 2011-10-01 10:34:00 Mem orial [place] Diastolic (mm Hg) 2011-10-01 00:44:00 Mem orial [place] Respitory Rate 2011-10-01 00:44:00 Memori al [place] Heart Rate 2011-10-01 00:44:00 [facility] [place] Systolic (mm Hg) 2011-10-01 00:44:00 Luan rial [place] Temperature Oral (F) 2011-10-01 00:44:00 98.1 F [facility] [place] Systolic (mm Hg) 2011-09-30 21:00:00 Luan rial [place] Diastolic (mm Hg) 2011-09-30 21:00:00 Mem orial [place] Heart Rate 2011-09-30 21:00:00 [facility] [place] Respitory Rate 2011-09-30 21:00:00 Memori al [place] Temperature Oral (F) 2011-09-30 10:03:00 97.8 F [facility] [place] Height 2011-09-15 03:49:00 172.72 cm [facility] [place] Weight 2011-09-15 03:49:00 [facility] [place] Procedures This patient has no known procedures. Encounters Start End Encounter Admission Attending Care Care Encounter Source Date/Time Date/Time Type Type Clinicians Facility Department ID 2011-09-14 2011-10-01 [facility] [id number] Memoria 22:16:00 13:00:00 52 l [place] 2011-09-14 2011-10-01 [facility] [id number] Memoria 22:16:00 13:00:00 52 l [place] Results Test Description Test Time Test Comments Results Result Comments Source B-TYPE NATRIURETIC FACTOR (BNP) 2016-12-21 05:56:00 Test Item Value Reference Range Interpretation Comme nts B-TYPE NATRIURETIC PEPTIDE (BEAKER) (test code = 700) 136 pg/mL 0-100 H COMPREHENSIVE METABOLIC [id number] 05:53:00 Test Item Value Reference Range Interpretation [...] NOT APPLICABLE FOR DIALYSIS PATIEN TS. POCT-GLUCOSE [id number] 16:33:00 Test Item Value Reference Range Interpretation Comments POC-GLUCOSE METER 116 mg/dL 70-110 H TESTED AT [place] [address] ([facility]) (test code = TISHA Cazares [facility] 1538) [id number] POCT-GLUCOSE [id number] 11:08:00 Test Item Value Reference Range Interpretation Comments POC-GLUCOSE METER 133 mg/dL 70-110 H TESTED AT [place] [address] ([facility]) (test code = TISHA Cazares [facility] 1538) [id number] POCT-GLUCOSE [id number] 06:11:00 Test Item Value Reference Range Interpretation Comments POC-GLUCOSE METER 105 mg/dL 70-110 TESTED AT [place] [address] ([facility]) (test code = [facility] 1538) [id number] POCT-GLUCOSE [id number] 20:28:00 Test Item Value Reference Range Interpretation Comments POC-GLUCOSE METER 124 mg/dL 70-110 H TESTED AT [place] [address] ([facility]) (test code = TISHA Cazares [facility] 1538) [id number] POCT-GLUCOSE [id number] 16:46:00 Test Item Value Reference Range Interpretation Comments POC-GLUCOSE METER 113 mg/dL 70-110 H TESTED AT [place] [address] ([facility]) (test code = TISHA Cazares [place] 1538) [id number] POCT-GLUCOSE [id number] 11:46:00 Test Item Value Reference Range Interpretation Comments POC-GLUCOSE METER 113 mg/dL 70-110 H TESTED AT [place] [address] ([facility]) (test code = TISHA Cazares [place] 1538) [address] URINE [id number] 09:54:00 Test Item Value Reference Range Interpretation Comments CULTURE ([facility]) (test KLEBSIELLA A >100, [...] S Sulfamethoxazole (test code = 47) POCT-GLUCOSE [id number] 06:46:00 Test Item Value Reference Range Interpretation Comments POC-GLUCOSE METER 111 mg/dL 70-110 H TESTED AT [place] [address] ([facility]) (test code = TISHA Cazares [facility] 1538) [id number] POCT-GLUCOSE [id number] 20:48:00 Test Item Value Reference Range Interpretation Comments POC-GLUCOSE METER 128 mg/dL 70-110 H TESTED AT [place] [address] ([facility]) (test code = TISHA Cazares [place] 1538) [id number] POCT-GLUCOSE [id number] 16:00:00 Test Item Value Reference Range Interpretation Comments POC-GLUCOSE METER 127 mg/dL 70-110 H TESTED AT [place] [address] ([facility]) (test code = TISHA Cazares [facility] 1538) [id number] POCT-GLUCOSE [id number] 11:16:00 Test Item Value Reference Range Interpretation Comments POC-GLUCOSE METER 273 mg/dL 70-[address] [facility] 6720 (BEAKER) (test code = TISHA [place] 1538) [id number] COMPREHENSIVE METABOLIC [id number] 06:44:00 Test Item Value Reference Range Interpretation [...] S NOT APPLICABLE FOR DIALYSIS PATIEN TS. [id number] 06:27:00 Test Item Value Reference Range Interpretation Comments PARTIAL THROMBOPLASTIN TIME 38.5 seconds 22.5-36.0 H (BEAKER) (test code = 760) PROTHROMBIN [id number] 06:26:00 Test Item Value Reference Range Interpretation [...] mechanical heart valves.CBC W/PLT COUNT & AUTO [id number] 06:25:00 Test Item Value Reference Range Interpretation [...] PERCENT (BEAKER) (test code = 2801) POCT-GLUCOSE [id number] 06:22:00 Test Item Value Reference Range Interpretation Comments POC-GLUCOSE METER 131 mg/dL 70-[address] [facility] 6720 (BEAKER) (test code = TISHA [place] 1538) [id number] URINALYSIS W/ [id number] 20:35:00 Test Item Value Reference Range Interpretation [...] SOURCE(BEAKER) (test code Urine, Clean Catch = 7699) POCT-GLUCOSE [id number] 20:21:00 Test Item Value Reference Range Interpretation Comments POC-GLUCOSE METER 132 mg/dL 70-[address] [facility] 6720 (BEAKER) (test code = TISHA Cazares [place] 1538) [id number] POCT-GLUCOSE [id number] 16:17:00 Test Item Value Reference Range Interpretation Comments POC-GLUCOSE METER 101 mg/dL 70-[address] [facility] 6720 (BEAKER) (test code = TISHA Cazares [place] 1538) [id number] POCT-GLUCOSE [id number] 13:35:00 Test Item Value Reference Range Interpretation Comments POC-GLUCOSE METER 143 mg/dL 70-[address] [facility] 6720 (BEAKER) (test code = TISHA Cazares [place] 1538) [address] BASIC METABOLIC [id number] 06:31:00 Test Item Value Reference Range Interpretation [...] APPLICABLE FOR DIALYSIS PATIEN TS. BASIC METABOLIC [id number] 05:41:00 Test Item Value Reference Range Interpretation [...] 0-0 (BEAKER) (test code = 413) VITAMIN [id number] 06:04:00 Test Item Value Reference Range Interpretation Comments VITAMIN B12 (BEAKER) (test code = 619 pg/mL 213-816 774) [id number] 06:04:00 Test Item Value Reference Range Interpretation Comments FERRITIN (BEAKER) (test code = 361) 335 ng/mL 5-275 H Effective 03/02/2014: Reference Range ChangeNew: Male 5-275 Previous: Male 22- 322 Female 5-275 Female 10-291FOLATE, [id number] 06:04:00 Test Item Value Reference Range Interpretation Comments FOLATE (BEAKER) (test code = 362) 4.9 ng/mL >=7.0 L Effective 03/02/2014: Folate Reference Range ChangeNew: >=7.0 Previous: >=5.4BASIC METABOLIC [id number] 05:47:00 Test Item Value Reference Range Interpretation [...] (BEAKER) (test code = 413) BASIC METABOLIC [id number] 05:53:00 Test Item Value Reference Range Interpretation [...] WBC 0-0 (BEAKER) (test code = 413) [id number] 22:53:00 Test Item Value Reference Range Interpretation Comments ACTIVATED CLOTTING TIME 153 sec TEST ED AT [place] [address] ([facility]) (test code = TISHA [place] [facility]) [id number] 22:35:00 Test Item Value Reference Range Interpretation Comments ACTIVATED CLOTTING TIME 202 sec TEST ED AT [place] [address] ([facility]) (test code = TISHA [place] [facility]) [id number] 22:04:00 Test Item Value Reference Range Interpretation [...] (BEAKER) (test code = 413) BASIC METABOLIC [id number] 08:43:00 Test Item Value Reference Range Interpretation [...] (BEAKER) (test code = 413) BASIC METABOLIC [id number] 06:44:00 Test Item Value Reference Range Interpretation [...] PATIEN TS. CBC W/PLT COUNT & AUTO [id number] 21:33:00 Test Item Value Reference Range Interpretation [...] 0-1 PERCENT (BEAKER) (test code = 2801) [id number] 07:21:00 Test Item Value Reference Range Interpretation Comments PHOSPHORUS (BEAKER) (test code = 3.6 mg/dL 2.3-4.7 604) [id number] 07:21:00 Test Item Value Reference Range Interpretation Comments MAGNESIUM (BEAKER) (test code = 1.9 mg/dL 1.6-2.6 627) COMPREHENSIVE METABOLIC [id number] 07:21:00 Test Item Value Reference Range Interpretation [...] code = 413) PHENYTOIN LEVEL, TOTAL AND [id number] 01:14:00 Test Item Value Reference Range Interpretation Comments PHENYTOIN (DILANTIN) (BEAKER) 22.9 ug/mL 10.0-20.0 H (test code = 605) PHENYTOIN FREE (BEAKER) (test 3.51 mcg/ml 1.00-2.00 H code = 847) VALPROIC ACID LEVEL, [id number] 20:49:00 Test Item Value Reference Range Interpretation Comments VALPROIC ACID TOTAL (BEAKER) (test 33 ug/mL 50-100 L code = 924) Therapeutic range for some clinical conditions may be >100 ug/mLPOCT-GLUCOSE [id number] 17:10:00 Test Item Value Reference Range Interpretation Comments POC-GLUCOSE METER 108 mg/dL 70-[address] [facility] 6720 (BEAKER) (test code = TISHA [place] 1538) [id number] PHENYTOIN LEVEL, [id number] 12:29:00 Test Item Value Reference Range Interpretation Comments PHENYTOIN (DILANTIN) (BEAKER) 16.3 ug/mL 10.0-20.0 (test code = 605) CREATINE KINASE (CK), TOTAL AND [id number] 12:26:00 Test Item Value Reference Range Interpretation Comments CREATINE KINASE TOTAL (BEAKER) 47 U/L 29-200 (test code = 380) CREATINE KINASE-MB (BEAKER) (test 1.1 ng/mL 0.0-6.6 code = 750) CREATINE KINASE-MB INDEX (BEAKER) 2.3 % (test code = 395) Effective 03/02/2014: CK-MB Reference Range ChangeNew: 0.0-6.6 Previous: 0.0-4.9CK-MB Reference Range:<6.7 Normal6.7-10.0 Borderline>10.0 Abnormal TROPONIN [id number] 12:26:00 Test Item Value Reference Range Interpretation [...] failure, acidosis, acute neurological disease, and persistent tachyarrhythmia.[id number] 12:17:00 Test Item Value Reference Range Interpretation Comments MAGNESIUM (BEAKER) (test code = 2.0 mg/dL 1.6-2.6 627) COMPREHENSIVE METABOLIC [id number] 12:17:00 Test Item Value Reference Range Interpretation [...] PATIEN TS. CBC W/PLT COUNT & AUTO [id number] 11:55:00 Test Item Value Reference Range Interpretation [...] PERCENT (BEAKER) (test code = 2801) URINE [id number] 11:55:00 Test Item Value Reference Range Interpretation Comments CULTURE (BEAKER) (test code = 1095) No growth BLOOD GAS, [id number] 10:28:00 Test Item Value Reference Range Interpretation [...] -2.0-3.0 (test code = 387) PATIENT TEMPERATURE ([facility]) (test 36.6 C code = 1818) FIO2 ([facility]) (test code = 1819) 32.0 % POCT-GLUCOSE [id number] 09:53:00 Test Item Value Reference Range Interpretation Comments POC-GLUCOSE METER 184 mg/dL 70-[address] [facility] 6720 ([facility]) (test code = TISHA Cazares [facility] 1538) [address] TROPONIN [id number] 22:44:00 Test Item Value Reference Range Interpretation Comments TROPONIN I ([facility]) (test code = 0.14 [...] acidosis, acute neurological disease, and persistent tachyarrhythmia.TROPONIN [id number] 15:17:00 Test Item Value Reference Range Interpretation [...] Range Interpretation Comments WHITE BLOOD CELL COUNT ([facility]) 7.7 K/ L 3.5-10.5 [...] MORPHOLOGY (BEAKER) (test code = Normal 762) [id number] 07:06:00 Test Item Value Reference Range Interpretation Comments PHOSPHORUS (BEAKER) (test code = 2.5 mg/dL 2.3-4.7 604) [id number] 07:06:00 Test Item Value Reference Range Interpretation Comments MAGNESIUM (BEAKER) (test code = 2.0 mg/dL 1.6-2.6 627) COMPREHENSIVE METABOLIC [id number] 07:06:00 Test Item Value Reference Range Interpretation [...] NOT APPLICABLE FOR DIALYSIS PATIEN TS. PROTHROMBIN TIME/[id number] 06:40:00 Test Item Value Reference Range Interpretation Comments PROTIME (BEAKER) (test code = 12.5 seconds 11.7-14.7 759) INR (BEAKER) (test code = 370) 1.0 <=5.9 RECOMMENDED COUMADIN/WARFARIN INR THERAPY RANGESSTANDARD DOSE: 2.0 - 3.0 Includes: PROPHYLAXIS for venous thrombosis, systemic embolization; TREATMENT for venous thrombosis and/or pulmonary embolus.HIGH RISK: Target INR is 2.5-3.5 for patients with mechanical heart valves.URINALYSIS W/ [id number] 06:18:00 Test Item Value Reference Range Interpretation [...] 516) SOURCE(BEAKER) (test code = Urine, Voided 8001) COMPREHENSIVE METABOLIC [id number] 05:47:00 Test Item Value Reference Range Interpretation [...] (BEAKER) (test code = 413) COMPREHENSIVE METABOLIC [id number] 10:08:00 Test Item Value Reference Range Interpretation [...] 0-0 (BEAKER) (test code = 413) POCT-GLUCOSE [id number] 12:08:00 Test Item Value Reference Range Interpretation Comments POC-GLUCOSE METER 111 mg/dL 70-110 H TESTED AT [place] [address] ([facility]) (test code = TISHA HINES [place] 1538) [address] POCT-GLUCOSE [id number] 08:40:00 Test Item Value Reference Range Interpretation Comments POC-GLUCOSE METER 184 mg/dL 70-[address] [facility] 6720 ([facility]) (test code = TISHA HINES [place] 1538) [address] [id number] 05:57:00 Test Item Value Reference Range Interpretation Comments MAGNESIUM (BEAKER) (test code = 2.1 mg/dL 1.6-2.6 627) BASIC METABOLIC [id number] 05:57:00 Test Item Value Reference Range Interpretation [...] 0-0 (BEAKER) (test code = 413) POCT-GLUCOSE [id number] 21:18:00 Test Item Value Reference Range Interpretation Comments POC-GLUCOSE METER 118 mg/dL 70-110 H TESTED AT [place] [address] ([facility]) (test code = [facility] 1538) [address] POCT-GLUCOSE [id number] 17:33:00 Test Item Value Reference Range Interpretation Comments POC-GLUCOSE METER 102 mg/dL 70-110 TESTED AT [place] [address] ([facility]) (test code = [facility] 1538) [address] POCT-GLUCOSE [id number] 12:06:00 Test Item Value Reference Range Interpretation Comments POC-GLUCOSE METER 188 mg/dL 70-110 H TESTED AT [place] [address] ([facility]) (test code = [facility] 1538) [address] POCT-GLUCOSE [id number] 08:31:00 Test Item Value Reference Range Interpretation Comments POC-GLUCOSE METER 109 mg/dL 70-110 TESTED AT [place] [address] ([facility]) (test code = [facility] 1538) [address] [id number] 06:07:00 Test Item Value Reference Range Interpretation Comments MAGNESIUM (BEAKER) (test code = 2.0 mg/dL 1.6-2.6 627) BASIC METABOLIC [id number] 06:07:00 Test Item Value Reference Range Interpretation [...] S NOT APPLICABLE FOR DIALYSIS PATIEN TS. [id number] 05:40:00 Test Item Value Reference Range Interpretation [...] 0-0 (BEAKER) (test code = 413) POCT-GLUCOSE [id number] 21:01:00 Test Item Value Reference Range Interpretation Comments POC-GLUCOSE METER 118 mg/dL 70-[address] [facility] 6720 (BEAKER) (test code = [facility] 1538) [address] POCT-GLUCOSE [id number] 18:51:00 Test Item Value Reference Range Interpretation Comments POC-GLUCOSE METER 117 mg/dL 70-[address] [facility] 6720 ([facility]) (test code = [facility] 1538) [address] POCT-GLUCOSE [id number] 14:02:00 Test Item Value Reference Range Interpretation Comments POC-GLUCOSE METER 129 mg/dL 70-[address] [facility] 67 ([facility]) (test code = [facility] 1538) [address] [id number] 04:19:00 Test Item Value Reference Range Interpretation Comments MAGNESIUM (BEAKER) (test code = 1.8 mg/dL 1.6-2.6 627) BASIC METABOLIC [id number] 04:19:00 Test Item Value Reference Range Interpretation [...] S NOT APPLICABLE FOR DIALYSIS PATIEN TS. [id number] 04:13:00 Test Item Value Reference Range Interpretation [...] heart valves.Prior to initiating heparinPrior to initiating [id number] 04:13:00 Test Item Value Reference Range Interpretation Comments PARTIAL THROMBOPLASTIN TIME 42.4 seconds 22.5-36.0 H (BEAKER) (test code = 760) LACTIC ACID, ARTERIAL, WHOLE [id number] 04:09:00 Test Item Value Reference Range Interpretation [...] 0-0 (BEAKER) (test code = 413) CALCIUM, [id number] 03:54:00 Test Item Value Reference Range Interpretation Comments CALCIUM IONIZED (BEAKER) (test 1.14 mmol/L 1.12-1.27 code = 698) PH, BLOOD (BEAKER) (test code = 7.49 1810) BLOOD GAS, [id number] 03:54:00 Test Item Value Reference Range Interpretation [...] (test code = 1819) 36.0 % POCT-GLUCOSE [id number] 17:32:00 Test Item Value Reference Range Interpretation Comments POC-GLUCOSE METER 121 mg/dL 70-[address] [facility] 6720 (BEAKER) (test code = TIS[place] H[place] 7159) [address] PLATELET AGGREGATION: FUNCTION [id number] 14:46:00 Test Item Value Reference Range Interpretation Comments WEAK ADP 82 % 60-91 RESULT(BEAKER) (test code = 2135) PLATELET FUNCTION 60-100% indicates SCREEN INTERP (BEAKER) normal platelet (test code = 2173) function [id number] Mari Phelan MD ([facility]) (test code = (electronic signature) 0290) PLATELET COUNT AGG 221 K/CU MM 150-450 (BEAKER) (test code = 2656) POCT-GLUCOSE [id number] 12:58:00 Test Item Value Reference Range Interpretation Comments POC-GLUCOSE METER 129 mg/dL 70-110 H TESTED AT [place] [address] ([facility]) (test code = [facility] 1538) [address] HEMOGLOBIN [id number] 09:09:00 Test Item Value Reference Range Interpretation Comments HEMOGLOBIN A1C (BEAKER) (test code = 5.1 % 4.3-6.1 368) BLOOD GAS, [id number] 06:57:00 Test Item Value Reference Range Interpretation [...] (test code = 1819) 40.0 % POCT-GLUCOSE [id number] 06:01:00 Test Item Value Reference Range Interpretation Comments POC-GLUCOSE METER 154 mg/dL 70-110 H TESTED AT [place] [address] ([facility]) (test code = [facility] 1538) [address] [id number] 05:02:00 Test Item Value Reference Range Interpretation Comments MAGNESIUM (BEAKER) (test code = 2.0 mg/dL 1.6-2.6 627) BASIC METABOLIC [id number] 05:02:00 Test Item Value Reference Range Interpretation [...] S NOT APPLICABLE FOR DIALYSIS PATIEN TS. [id number] 04:56:00 Test Item Value Reference Range Interpretation [...] mechanical heart valves.CBC W/PLT COUNT & AUTO [id number] 04:54:00 Test Item Value Reference Range Interpretation [...] code = 2801) LACTIC ACID, ARTERIAL, WHOLE [id number] 04:39:00 Test Item Value Reference Range Interpretation Comments LACTATE BLOOD ARTERIAL (2) 1.2 mmol/L 0.5-2.2 (BEAKER) (test code = 2874) Effective 08/17/2015: Units/Reference Range ChangeNew: 0.5-2.2 mmol/L Previous: 5- 20 mg/dLCALCIUM, [id number] 04:11:00 Test Item Value Reference Range Interpretation Comments CALCIUM IONIZED (BEAKER) (test 1.17 mmol/L 1.12-1.27 code = 698) PH, BLOOD (BEAKER) (test code = 7.44 1810) BLOOD GAS, [id number] 04:11:00 Test Item Value Reference Range Interpretation [...] code = 1819) 40.0 % OXYGEN SATURATION, [id number] 04:09:00 Test Item Value Reference Range Interpretation Comments O2 SATURATION (MEASURED) (BEAKER) 80.7 % (test code = 1455) POCT-GLUCOSE [id number] 02:46:00 Test Item Value Reference Range Interpretation Comments POC-GLUCOSE METER 150 mg/dL 70-[address] [facility] 67 ([facility]) (test code = TISHA Cazares [facility] 1538) [address] POCT-GLUCOSE [id number] 18:29:00 Test Item Value Reference Range Interpretation Comments POC-GLUCOSE METER 111 mg/dL 70-[address] [facility] 67 ([facility]) (test code = [facility] 1538) [address] [id number] 16:27:00 Test Item Value Reference Range Interpretation Comments POTASSIUM (BEAKER) (test code = 4.2 meq/L 3.5-5.1 379) [id number] 16:27:00 Test Item Value Reference Range Interpretation Comments MAGNESIUM (BEAKER) (test code = 2.1 mg/dL 1.6-2.6 627) [id number] 16:27:00 Test Item Value Reference Range Interpretation Comments SODIUM (BEAKER) (test code = 381) 141 meq/L 136-145 BASIC METABOLIC [id number] 16:27:00 Test Item Value Reference Range Interpretation [...] DIALYSIS PATIEN TS. LACTIC ACID, ARTERIAL, WHOLE [id number] 16:23:00 Test Item Value Reference Range Interpretation Comments LACTATE BLOOD 1.8 mmol/L 0.5-2.2 Specimen sligh tly ARTERIAL (2) (BEAKER) hemoly zed (test code = 2874) Effective 08/17/2015: Units/Reference Range ChangeNew: 0.5-2.2 mmol/L Previous: 5- 20 mg/dLPT/[id number] 16:18:00 Test Item Value Reference Range Interpretation [...] for patients with mechanical heart valves.HEMOGLOBIN AND [id number] 16:10:00 Test Item Value Reference Range Interpretation [...] (BEAKER) (test code = 413) BLOOD GAS, [id number] 16:03:00 Test Item Value Reference Range Interpretation [...] -2.0-3.0 (test code = 387) PATIENT TEMPERATURE ([facility]) 35.8 C (test code = 1818) FIO2 ([facility]) (test code = 1819) 60.0 % CALCIUM, [id number] 16:03:00 Test Item Value Reference Range Interpretation Comments CALCIUM IONIZED ([facility]) (test 1.18 mmol/L 1.12-1.27 code = 698) PH, BLOOD ([facility]) (test code = 7.36 1810) OXYGEN SATURATION, [id number] 16:02:00 Test Item Value Reference Range Interpretation Comments O2 SATURATION (MEASURED) ([facility]) 82.9 % (test code = 1455) [id number] 15:26:00 Test Item Value Reference Range Interpretation Comments ACTIVATED CLOTTING TIME 120 sec TEST ED AT [place] [address] ([facility]) (test code = TISHA Cazares [place] [address]) [address] [id number] 15:26:00 Test Item Value Reference Range Interpretation Comments ACTIVATED CLOTTING TIME 802 sec TEST ED AT [place] [address] ([facility]) (test code = TISHA Cazares [place] [address]) [address] [id number] 15:26:00 Test Item Value Reference Range Interpretation Comments ACTIVATED CLOTTING TIME 884 sec TEST ED AT [place] [address] ([facility]) (test code = TISHA Cazares [place] [address]) [address] [id number] 15:26:00 Test Item Value Reference Range Interpretation Comments ACTIVATED CLOTTING TIME 621 sec TEST ED AT [place] [address] ([facility]) (test code = TISHA Cazares [place] [address]) [address] THROMBOELASTOGRAPH (TEG)[id number] 14:00:00 Test Item Value Reference Range Interpretation Comments TEG ACTIVATED CLOTTING TIME 8.7 minutes 4.0-7.0 H ([facility]) (test code = 1407) TEG FIBRINOGEN ACTIVITY (AKER) 73.1 degrees 61.0-73.0 H (test code = 1408) TEG PLT. AGGREGATION (AKER) 70.6 MM 55.0-65.0 H (test code = 1409) TGH ACTIVATED CLOTTING TIME 8.7 minutes 4.0-7.0 H ([facility]) (test code = 1411) TGH FIBRINOGEN ACTIVITY (BEAKER) 73.0 degrees 61.0-73.0 (test code = 1412) TGH PLT. AGGREGATION (BEAKER) 69.3 MM 55.0-65.0 H (test code = 1413) [id number] 13:28:00 Test Item Value Reference Range Interpretation Comments FIBRINOGEN LEVEL (BEAKER) (test 458 mg/dl 225-434 H code = 658) [id number] 13:28:00 Test Item Value Reference Range Interpretation Comments PARTIAL THROMBOPLASTIN TIME 39.7 seconds 22.5-36.0 H (BEAKER) (test code = 760) PROTHROMBIN [id number] 13:27:00 Test Item Value Reference Range Interpretation Comments PROTIME (BEAKER) (test code = 17.4 seconds 11.7-14.7 H 759) INR (BEAKER) (test code = 370) 1.4 <=5.9 RECOMMENDED COUMADIN/WARFARIN INR THERAPY RANGESSTANDARD DOSE: 2.0 - 3.0 Includes: PROPHYLAXIS for venous thrombosis, systemic embolization; TREATMENT for venous thrombosis and/or pulmonary embolus.HIGH RISK: Target INR is 2.5-3.5 for patients with mechanical heart valves.PLATELET [id number] 13:21:00 Test Item Value Reference Range Interpretation Comments PLATELET COUNT 151 K/CU MM 150-450 Discordant re sult (BEAKER) (test code compared to previous = 756) result; clinica l correlation req uired. CALCIUM, [id number] 13:06:00 Test Item Value Reference Range Interpretation Comments CALCIUM IONIZED (BEAKER) (test 1.07 mmol/L 1.12-1.27 L code = 698) PH, BLOOD (BEAKER) (test code = 7.31 1810) SODIUM NA-STAT [id number] 13:05:00 Test Item Value Reference Range Interpretation Comments SODIUM (BEAKER) (test code = 381) 135 meq/L 135-148 POTASSIUM-STAT [id number] 13:05:00 Test Item Value Reference Range Interpretation Comments POTASSIUM (BEAKER) (test code = 4.4 meq/L 3.6-5.5 379) BLOOD GAS, [id number] 13:05:00 Test Item Value Reference Range Interpretation [...] (test code = 1819) 67.0 % GLUCOSE-STAT [id number] 13:05:00 Test Item Value Reference Range Interpretation Comments GLUCOSE RANDOM (BEAKER) (test code 145 mg/dL 70-110 H = 652) HGB/HCT (H&H) - STAT [id number] 13:05:00 Test Item Value Reference Range Interpretation Comments HEMOGLOBIN (BEAKER) (test code = 10.2 g/dL 13.0-16.8 L 410) HEMATOCRIT (BEAKER) (test code = 30.0 % 40.0-50.0 L 411) BLOOD GAS, [id number] 12:26:00 Test Item Value Reference Range Interpretation [...] (test code = 1819) 65.0 % GLUCOSE-STAT [id number] 12:26:00 Test Item Value Reference Range Interpretation Comments GLUCOSE RANDOM (BEAKER) (test code 132 mg/dL 70-110 H = 652) HGB/HCT (H&H) - STAT [id number] 12:26:00 Test Item Value Reference Range Interpretation Comments HEMOGLOBIN (BEAKER) (test code = 10.6 g/dL 13.0-16.8 L 410) HEMATOCRIT (BEAKER) (test code = 31.0 % 40.0-50.0 L 411) SODIUM NA-STAT [id number] 12:25:00 Test Item Value Reference Range Interpretation Comments SODIUM (BEAKER) (test code = 381) 136 meq/L 135-148 POTASSIUM-STAT [id number] 12:25:00 Test Item Value Reference Range Interpretation Comments POTASSIUM (BEAKER) (test code = 4.4 meq/L 3.6-5.5 379) BLOOD GAS, [id number] 12:03:00 Test Item Value Reference Range Interpretation [...] (test code = 1819) 65.0 % POTASSIUM-STAT [id number] 12:00:00 Test Item Value Reference Range Interpretation Comments POTASSIUM (BEAKER) (test code = 4.7 meq/L 3.6-5.5 379) BLOOD GAS, [id number] 12:00:00 Test Item Value Reference Range Interpretation [...] (test code = 1819) 65.0 % GLUCOSE-STAT [id number] 12:00:00 Test Item Value Reference Range Interpretation Comments GLUCOSE RANDOM (BEAKER) (test code 140 mg/dL 70-110 H = 652) HGB/HCT (H&H) - STAT [id number] 12:00:00 Test Item Value Reference Range Interpretation Comments HEMOGLOBIN (BEAKER) (test code = 10.4 g/dL 13.0-16.8 L 410) HEMATOCRIT (BEAKER) (test code = 31.0 % 40.0-50.0 L 411) SODIUM NA-STAT [id number] 12:00:00 Test Item Value Reference Range Interpretation Comments SODIUM (BEAKER) (test code = 381) 131 meq/L 135-148 L PLATELET AGGREGATION: FUNCTION [id number] 11:08:00 Test Item Value Reference Range Interpretation Comments WEAK ADP 76 % 60-91 RESULT(BEAKER) (test code = 2135) PLATELET FUNCTION 60-100% indicates SCREEN INTERP (BEAKER) normal platelet (test code = 2173) function [id number] Mari Phelan MD (BEAKER) (test code = (electronic signature) 3310) PLATELET COUNT AGG 222 K/CU MM 150-450 (BEAKER) (test code = 2656) for patients on clopidogrel in past two weeksHEMOGLOBIN [id number] 08:57:00 Test Item Value Reference Range Interpretation Comments HEMOGLOBIN A1C (BEAKER) (test code = 5.0 % 4.3-6.1 368) CBC W/PLT COUNT & AUTO [id number] 05:54:00 Test Item Value Reference Range Interpretation [...] 0-1 PERCENT (BEAKER) (test code = 2801) [id number] 05:37:00 Test Item Value Reference Range Interpretation Comments PARTIAL THROMBOPLASTIN TIME 56.5 seconds 22.5-36.0 H (BEAKER) (test code = 760) BASIC METABOLIC [id number] 05:33:00 Test Item Value Reference Range Interpretation [...] NOT APPLICABLE FOR DIALYSIS PATIEN TS. PROTHROMBIN [id number] 05:33:00 Test Item Value Reference Range Interpretation Comments PROTIME (BEAKER) (test code = 13.3 seconds 11.7-14.7 759) INR (BEAKER) (test code = 370) 1.0 <=5.9 RECOMMENDED COUMADIN/WARFARIN INR THERAPY RANGESSTANDARD DOSE: 2.0 - 3.0 Includes: PROPHYLAXIS for venous thrombosis, systemic embolization; TREATMENT for venous thrombosis and/or pulmonary embolus.HIGH RISK: Target INR is 2.5-3.5 for patients with mechanical heart valves.[id number] 19:22:00 Test Item Value Reference Range Interpretation Comments PARTIAL THROMBOPLASTIN TIME 37.4 seconds 22.5-36.0 H (BEAKER) (test code = 760) PROTHROMBIN TIME/[id number] 19:21:00 Test Item Value Reference Range Interpretation Comments PROTIME (BEAKER) (test code = 12.8 seconds 11.7-14.7 759) INR (BEAKER) (test code = 370) 1.0 <=5.9 RECOMMENDED COUMADIN/WARFARIN INR THERAPY RANGESSTANDARD DOSE: 2.0 - 3.0 Includes: PROPHYLAXIS for venous thrombosis, systemic embolization; TREATMENT for venous thrombosis and/or pulmonary embolus.HIGH RISK: Target INR is 2.5-3.5 for patients with mechanical heart valves.[id number] 11:49:00 Test Item Value Reference Range Interpretation Comments PARTIAL THROMBOPLASTIN TIME 34.7 seconds 22.5-36.0 (BEAKER) (test code = 760) Prior to initiating heparinPLATELET [id number] 11:31:00 Test Item Value Reference Range Interpretation Comments PLATELET COUNT (BEAKER) (test 199 K/CU MM 150-450 code = 756) PLATELET AGGREGATION: FUNCTION [id number] 11:12:00 Test Item Value Reference Range Interpretation Comments WEAK ADP 90 % 60-91 RESULT(AKER) (test code = 2135) PLATELET FUNCTION 60-100% indicates SCREEN INTERP (AKER) normal platelet (test code = 2173) function [id number] Mari Phelan MD ([facility]) (test code = (electronic signature) 2622) PLATELET COUNT AGG 200 K/CU MM 150-450 (BEAKER) (test code = 2656) HEMOGLOBIN [id number] 08:38:00 Test Item Value Reference Range Interpretation Comments HEMOGLOBIN A1C (BEAKER) (test code = 5.5 % 4.3-6.1 368) TROPONIN [id number] 08:35:00 Test Item Value Reference Range Interpretation Comments TROPONIN I (AKER) (test code = 0.40 ng/mL 0.00-0.03 397) [...] 0.0-4.9CK-MB Reference Range:<6.7 Normal6.7-10.0 Borderline>10.0 Abnormal POCT-GLUCOSE [id number] 08:23:00 Test Item Value Reference Range Interpretation Comments POC-GLUCOSE METER 104 mg/dL 70-[address] [facility] 6720 (BEAKER) (test code = TISHA Cazares [place] 1538) [address] PROTHROMBIN [id number] 04:32:00 Test Item Value Reference Range Interpretation Comments PROTIME (BEAKER) (test code = 13.5 seconds 11.7-14.7 759) INR (BEAKER) (test code = 370) 1.0 <=5.9 RECOMMENDED COUMADIN/WARFARIN INR THERAPY RANGESSTANDARD DOSE: 2.0 - 3.0 Includes: PROPHYLAXIS for venous thrombosis, systemic embolization; TREATMENT for venous thrombosis and/or pulmonary embolus.HIGH RISK: Target INR is 2.5-3.5 for patients with mechanical heart valves.[id number] 02:13:00 Test Item Value Reference Range Interpretation Comments PHOSPHORUS (BEAKER) (test code = 3.9 mg/dL 2.3-4.7 604) [id number] 02:13:00 Test Item Value Reference Range Interpretation Comments MAGNESIUM (BEAKER) (test code = 2.1 mg/dL 1.6-2.6 627) BASIC METABOLIC [id number] 02:13:00 Test Item Value Reference Range Interpretation [...] PATIEN TS. CBC W/PLT COUNT & AUTO [id number] 01:44:00 Test Item Value Reference Range Interpretation [...] 0-1 PERCENT (BEAKER) (test code = 2801) [id number] 01:31:00 Test Item Value Reference Range Interpretation [...] 2.5-3.5 for patients with mechanical heart valves.TROPONIN [id number] 00:46:00 Test Item Value Reference Range Interpretation [...] Previous: 0.0-4.9CK-MB Reference Range:<6.7 Normal6.7-10.0 Borderline>10.0 Abnormal [id number] 06:58:00 Test Item Value Reference Range Interpretation Comments PHOSPHORUS (BEAKER) (test code = 3.7 mg/dL 2.3-4.7 604) [id number] 06:58:00 Test Item Value Reference Range Interpretation Comments MAGNESIUM (BEAKER) (test code = 1.9 mg/dL 1.6-2.6 627) BASIC METABOLIC [id number] 06:58:00 Test Item Value Reference Range Interpretation [...] S NOT APPLICABLE FOR DIALYSIS PATIEN TS. [id number] 06:36:00 Test Item Value Reference Range Interpretation Comments PHOSPHORUS (BEAKER) (test code = 4.1 mg/dL 2.3-4.7 604) [id number] 06:36:00 Test Item Value Reference Range Interpretation Comments MAGNESIUM (BEAKER) (test code = 2.0 mg/dL 1.6-2.6 627) BASIC METABOLIC [id number] 06:36:00 Test Item Value Reference Range Interpretation [...] S NOT APPLICABLE FOR DIALYSIS PATIEN TS. [id number] 15:50:00 Test Item Value Reference Range Interpretation Comments RPR SCREEN (BEAKER) (test code = Nonreactive Nonreactive 420) HEMOGLOBIN [id number] 10:29:00 Test Item Value Reference Range Interpretation Comments HEMOGLOBIN A1C (BEAKER) (test code = 5.4 % 4.3-6.1 368) VITAMIN B12 AND [id number] 09:21:00 Test Item Value Reference Range Interpretation Comments VITAMIN B12 (BEAKER) (test code = 335 pg/mL 213-816 774) FOLATE (BEAKER) (test code = 362) 36.6 ng/mL >=7.0 Effective 03/02/2014: Folate Reference Range ChangeNew: >=7.0 Previous: >=5.4CBC W/PLT COUNT & AUTO [id number] 08:15:00 Test Item Value Reference Range Interpretation [...] (test code = 417) 0.00TSH/FREE T4 IF [id number] 08:00:00 Test Item Value Reference Range Interpretation Comments THYROID STIMULATING HORMONE 1.39 uIU/mL 0.35-4.94 (BEAKER) (test code = 772) BASIC METABOLIC [id number] 07:26:00 Test Item Value Reference Range Interpretation [...] TO CALCU LATE m ESTIMATED GFR. LIPID [id number] 07:26:00 Test Item Value Reference Range Interpretation [...] (test code = 3.8 mg/dL 2.3-4.7 604) [id number] 07:25:00 Test Item Value Reference Range Interpretation Comments MAGNESIUM (BEAKER) (test code = 2.0 mg/dL 1.6-2.6 627) URINALYSIS W/ [id number] 19:16:00 Test Item Value Reference Range Interpretation [...] 520) SOURCE(BEAKER) (test code = Urine, Voided 5636) BLOOD [id number] 11:00:00 Test Item Value Reference Range Interpretation Comments CULTURE (BEAKER) (test No growth in 5 days code = 1095) BLOOD [id number] 11:00:00 Test Item Value Reference Range Interpretation Comments CULTURE (BEAKER) (test No growth in 5 days code = 1095) BASIC METABOLIC [id number] 05:33:00 Test Item Value Reference Range Interpretation [...] ESTIMATED GFR. CBC W/PLT COUNT & AUTO [id number] 05:04:00 Test Item Value Reference Range Interpretation [...] 0.00-0.20 (test code = 417) 0.00VANCOMYCIN LEVEL, [id number] 21:36:00 Test Item Value Reference Range Interpretation Comments VANCOMYCIN TROUGH (BEAKER) (test 9.5 ug/mL 10.0-20.0 L code = 522) Please draw prior to 4th vancomycin doseVITAMIN B12 AND [id number] 04:33:00 Test Item Value Reference Range Interpretation Comments VITAMIN B12 (BEAKER) (test code = 599 pg/mL 213-816 774) FOLATE (BEAKER) (test code = 362) 7.7 ng/mL >=7.0 Effective 03/02/2014: Folate Reference Range ChangeNew: >=7.0 Previous: >=5.4HEPATIC FUNCTION [id number] 03:58:00 Test Item Value Reference Range Interpretation [...] = 12 U/L 6-55 347) BASIC METABOLIC [id number] 03:58:00 Test Item Value Reference Range Interpretation [...] ESTIMATED GFR. CBC W/PLT COUNT & AUTO MDSCBPXFKKBE6216-99-09 03:45:00 Test Item Value Reference Range Interpretation [...] K/ L 0.00-0.20 (test code = 417) 0.14NPJZ9849-39-47 03:18:00 Test Item Value Reference Range Interpretation Comments PARTIAL THROMBOPLASTIN TIME 42.6 seconds 22.5-36.0 H (BEAKER) (test code = 760) PROTHROMBIN TIME/[id number] 03:17:00 Test Item Value Reference Range Interpretation Comments PROTIME (BEAKER) (test code = 13.0 seconds 11.7-14.7 759) INR (BEAKER) (test code = 370) 1.0 <=5.9 RECOMMENDED COUMADIN/WARFARIN INR THERAPY RANGESSTANDARD DOSE: 2.0 - 3.0 Includes: PROPHYLAXIS for venous thrombosis, systemic embolization; TREATMENT for venous thrombosis and/or pulmonary embolus.HIGH RISK: Target INR is 2.5-3.5 for patients with mechanical heart valves.BASIC METABOLIC [id number] 02:48:00 Test Item Value Reference Range Interpretation [...] ESTIMATED GFR. CBC W/PLT COUNT & AUTO [id number] 02:47:00 Test Item Value Reference Range Interpretation [...] K/ L 0.00-0.20 (test code = 417) 0.78CZSZTDMZX9395-22-29 09:18:00 Test Item Value Reference Range Interpretation Comments Sodium Lvl (test code = Sodium Lvl) 146 135-145 [facility]emycqALZNXGCRSH5150-51-41 09:18:00 Test Item Value Reference Range Interpretation Comments MPV (test code = MPV) 9.7 7.4-10.4 N [facility] HospitalWazwvdhAHENGZKNMN0522-86-56 09:18:00 Test Item Value Reference Range Interpretation Comments Platelet (test code = Platelet) 188 133-450 N [facility] HospitalIppszgtVJNXZWQKBS9033-82-48 09:18:00 Test Item Value Reference Range Interpretation Comments MCHC (test code = MCHC) 34.5 32.0-36.0 N [facility] HospitalRpwlsjhXSSPZEMOHU6941-79-87 09:18:00 Test Item Value Reference Range Interpretation Comments MCH (test code = MCH) 34.2 pg 27.0-31.0 H [facility] HospitalUblaalsKNDXCJAPTW3069-54-43 09:18:00 Test Item Value Reference Range Interpretation Comments Hgb (test code = Hgb) 13.4 14.0-18.0 L [facility] HospitalEdybubaVLXJMIHSZT8076-61-06 09:18:00 Test Item Value Reference Range Interpretation Comments WBC (test code = WBC) 5.8 3.7-10.4 N [facility] HospitalMbsgizvYBNRTFTQXS9681-54-25 09:18:00 Test Item Value Reference Range Interpretation Comments RBC (test code = RBC) 3.92 4.70-6.10 L [facility] HospitalXavlbwiWSOWLMHTYH0276-68-68 09:18:00 Test Item Value Reference Range Interpretation Comments Segs (test code = Segs) 41.0 45.0-75.0 L [facility] HospitalUopjeoxTRDULNTLDP4370-03-28 09:18:00 Test Item Value Reference Range Interpretation Comments Monocytes # (test code 0.8 See_Comment N [Aut omated message] The = Monocytes #) system which generated this result tra nsmitted reference range : <=0.8. The reference r jessika was not used to int erpret this result as normal/abnormal . [facility] HospitalUlpjbwuKGGFXDZSAY9305-10-96 09:18:00 Test Item Value Reference Range Interpretation Comments Lymphocytes # (test code = Lymphocytes 2.4 1.0-5.5 N #) [facility]MvxitzdXMWVXVXFO2658-96-77 09:18:00 Test Item Value Reference Range Interpretation Comments Potassium Lvl (test code = Potassium 4.0 3.5-5.1 N Lvl) [facility] HospitalCwbiobeQZVLWAENTW5769-88-36 09:18:00 Test Item Value Reference Range Interpretation Comments Basophils # (test code 0.0 See_Comment N [Aut omated message] The = Basophils #) system which generated this result tra nsmitted reference range : <=0.2. The reference r jessika was not used to int erpret this result as normal/abnormal . [facility] HospitalWzwasneXCECPZFMVV1908-57-32 09:18:00 Test Item Value Reference Range Interpretation Comments Eosinophils # (test code 0.2 See_Comment N [A utomated message] The = Eosinophils #) system whic h generated this result tra nsmitted reference range : <=0.5. The reference r jessika was not used to int erpret this result as normal/abnormal . [facility] HospitalZimmvziECPVBTOBBE5673-58-14 09:18:00 Test Item Value Reference Range Interpretation Comments Lymphocytes (test code = Lymphocytes) 41.3 20.0-40.0 H [facility] HospitalZdznvcvWHJSSPMLVT9496-77-13 09:18:00 Test Item Value Reference Range Interpretation Comments Segs (test code = Segs) 41.0 45.0-75.0 L [facility] HospitalHwkaczoTPYLMFXBDB9010-76-75 09:18:00 Test Item Value Reference Range Interpretation Comments Eosinophils (test code = 3.9 See_Comment N [A utomated message] The Eosinophils) system which ge nerated this result tra nsmitted reference range : <=4.0. The reference r jessika was not used to int erpret this result as normal/abnormal . [facility] HospitalLlkgeypXNSIAATLWJ7229-94-18 09:18:00 Test Item Value Reference Range Interpretation Comments Segs-Bands # (test code = Segs-Bands #) 2.4 1.5-8.1 N [facility] HospitalPfxjobeMMTIPBANNW6367-64-49 09:18:00 Test Item Value Reference Range Interpretation Comments Basophils (test code = 0.3 See_Comment N [Aut omated message] The Basophils) system which ge nerated this result tra nsmitted reference range : <=1.0. The reference r jessika was not used to int erpret this result as normal/abnormal . [facility] HospitalToiikyaGQUBAWIWAL9906-81-98 09:18:00 Test Item Value Reference Range Interpretation Comments Monocytes (test code = Monocytes) 13.5 2.0-12.0 H [facility] HospitalXzvgwhqSZMWPDCXAD6562-91-77 09:18:00 Test Item Value Reference Range Interpretation Comments Eosinophils (test code = 3.9 See_Comment N [A utomated message] The Eosinophils) system which ge nerated this result tra nsmitted reference range : <=4.0. The reference r jessika was not used to int erpret this result as normal/abnormal . [facility] HospitalPrstqzuOZNNUHSRDZ4350-16-85 09:18:00 Test Item Value Reference Range Interpretation Comments Segs-Bands # (test code = Segs-Bands #) 2.4 1.5-8.1 N [facility] CenterVtteatgHDJHKNEPB0825-12-56 09:18:00 Test Item Value Reference Range Interpretation Comments BUN (test code = BUN) 11 7-22 N [facility] HospitalIcazxazAHWCJVRKFF1779-50-76 09:18:00 Test Item Value Reference Range Interpretation Comments Basophils (test code = 0.3 See_Comment N [Aut omated message] The Basophils) system which ge nerated this result tra nsmitted reference range : <=1.0. The reference r jessika was not used to int erpret this result as normal/abnormal . [facility] HospitalSyofjhgLOLCQNORNN9449-16-86 09:18:00 Test Item Value Reference Range Interpretation Comments Monocytes (test code = Monocytes) 13.5 2.0-12.0 H [facility] CenterLpvaudiKDNPYCAJP8188-14-92 09:18:00 Test Item Value Reference Range Interpretation Comments Glucose Lvl (test code = Glucose Lvl) 107 70-99 H [facility] CenterZbtxmeyOSGVHTMXG0682-33-58 09:18:00 Test Item Value Reference Range Interpretation Comments Creatinine Lvl (test code = Creatinine 0.7 0.5-1.4 N Lvl) [facility] HospitalRkiwtuvMWKAOYHMEL5086-93-96 09:18:00 Test Item Value Reference Range Interpretation Comments RDW (test code = RDW) 13.6 11.5-14.5 N [facility] HospitalKestrphUBWVAEBEUA6460-22-77 09:18:00 Test Item Value Reference Range Interpretation Comments MCV (test code = MCV) 98.9 80.0-94.0 H [facility] HospitalWvseuliJNSPKFVVHN5923-50-01 09:18:00 Test Item Value Reference Range Interpretation Comments Hct (test code = Hct) 38.8 42.0-54.0 L [facility] HospitalLoxqrasWVGNVBQUTB0394-72-38 09:18:00 Test Item Value Reference Range Interpretation Comments MPV (test code = MPV) 9.7 7.4-10.4 N [facility] HospitalRysyadmZIQANTZCZE9957-52-48 09:18:00 Test Item Value Reference Range Interpretation Comments Platelet (test code = Platelet) 188 133-450 N [facility] HospitalMvagvqoFIKQNMIRDK5711-66-04 09:18:00 Test Item Value Reference Range Interpretation Comments MCHC (test code = MCHC) 34.5 32.0-36.0 N [facility] HospitalSpynddfWXQENJEIBM5483-38-56 09:18:00 Test Item Value Reference Range Interpretation Comments MCH (test code = MCH) 34.2 pg 27.0-31.0 H [facility] HospitalDonzowjWNFTXVVBVY9566-68-61 09:18:00 Test Item Value Reference Range Interpretation Comments Hgb (test code = Hgb) 13.4 14.0-18.0 L [facility] HospitalFfxlhiyUPSIGMENOU6782-96-62 09:18:00 Test Item Value Reference Range Interpretation Comments WBC (test code = WBC) 5.8 3.7-10.4 N [facility] HospitalSceqsraNJUYEUVDYF6380-72-86 09:18:00 Test Item Value Reference Range Interpretation Comments RBC (test code = RBC) 3.92 4.70-6.10 L [facility] HospitalQtqydpfXKPXFVUBQP5471-63-66 09:18:00 Test Item Value Reference Range Interpretation Comments Monocytes # (test code 0.8 See_Comment N [Aut omated message] The = Monocytes #) system which generated this result tra nsmitted reference range : <=0.8. The reference r jessika was not used to int erpret this result as normal/abnormal . [facility] HospitalEtkinynBYADCVRIVU8406-23-42 09:18:00 Test Item Value Reference Range Interpretation Comments Lymphocytes # (test code = Lymphocytes 2.4 1.0-5.5 N #) [facility] HospitalEjthaixLZGEBUIZOH0712-92-18 09:18:00 Test Item Value Reference Range Interpretation Comments Basophils # (test code 0.0 See_Comment N [Aut omated message] The = Basophils #) system which generated this result tra nsmitted reference range : <=0.2. The reference r jessika was not used to int erpret this result as normal/abnormal . [facility] HospitalSpdtekdBPGCWECEPG6638-81-27 09:18:00 Test Item Value Reference Range Interpretation Comments Eosinophils # (test code 0.2 See_Comment N [A utomated message] The = Eosinophils #) system whic h generated this result tra nsmitted reference range : <=0.5. The reference r jessika was not used to int erpret this result as normal/abnormal . [facility] HospitalKxjrbkuBCDKTHRVTL2987-94-79 09:18:00 Test Item Value Reference Range Interpretation Comments Lymphocytes (test code = Lymphocytes) 41.3 20.0-40.0 H [facility] HospitalOjnaikoYQMDABATBY1773-40-82 09:18:00 Test Item Value Reference Range Interpretation Comments Segs (test code = Segs) 41.0 45.0-75.0 L [facility] HospitalMqehhpgUSEYRANAQJ2771-85-15 09:18:00 Test Item Value Reference Range Interpretation Comments Eosinophils (test code = 3.9 See_Comment N [A utomated message] The Eosinophils) system which ge nerated this result tra nsmitted reference range : <=4.0. The reference r jessika was not used to int erpret this result as normal/abnormal . [facility] HospitalZthhttnLAXLKCQGKH9543-99-60 09:18:00 Test Item Value Reference Range Interpretation Comments Segs-Bands # (test code = Segs-Bands #) 2.4 1.5-8.1 N [facility] HospitalDpqdkisEKOWTIPJHH4131-54-39 09:18:00 Test Item Value Reference Range Interpretation Comments Basophils (test code = 0.3 See_Comment N [Aut omated message] The Basophils) system which ge nerated this result tra nsmitted reference range : <=1.0. The reference r jessika was not used to int erpret this result as normal/abnormal . [facility] HospitalIhegomoGWMMFCIQEW8386-82-51 09:18:00 Test Item Value Reference Range Interpretation Comments Monocytes (test code = Monocytes) 13.5 2.0-12.0 H [facility] CenterDeqwetcPRLPJJSCA1609-00-63 09:18:00 Test Item Value Reference Range Interpretation Comments AGAP (test code = AGAP) 14.0 10.0-20.0 N [facility] CenterBpclpsjXNWWNLNTK6567-95-05 09:18:00 Test Item Value Reference Range Interpretation Comments Chloride Lvl (test code = Chloride Lvl) 110 95-109 H [facility] CenterEngogbcYEKBJJEDQ0603-36-18 09:18:00 Test Item Value Reference Range Interpretation Comments CO2 (test code = CO2) 26 24-32 N [facility] CenterJtaueisLJXCPFTOP4200-90-29 09:18:00 Test Item Value Reference Range Interpretation Comments Calcium Lvl (test code = Calcium Lvl) 9.1 8.5-10.5 N [facility] CenterKxzekyjXRMTFJVCQ7355-73-95 09:18:00 Test Item Value Reference Range Interpretation Comments Sodium Lvl (test code = Sodium Lvl) 146 135-145 H [facility] CenterLmzenhvCQDKMFNGD2424-24-62 09:18:00 Test Item Value Reference Range Interpretation Comments Potassium Lvl (test code = Potassium 4.0 3.5-5.1 N Lvl) [facility] CenterOkoeceeSTMHPPWBQ6510-55-94 09:18:00 Test Item Value Reference Range Interpretation Comments AGAP (test code = AGAP) 14.0 10.0-20.0 N [facility] CenterLmqestlOCHFIPNMR6930-87-88 09:18:00 Test Item Value Reference Range Interpretation Comments Chloride Lvl (test code = Chloride Lvl) 110 95-109 H [facility] CenterSgaborqZNBBMAGVV2158-88-85 09:18:00 Test Item Value Reference Range Interpretation Comments CO2 (test code = CO2) 26 24-32 N [facility] CenterKbuccxhLSTYIEJEF1485-39-15 09:18:00 Test Item Value Reference Range Interpretation Comments BUN (test code = BUN) 11 7-22 N [facility] CenterXemfrrlEYPQLMOVW5052-57-08 09:18:00 Test Item Value Reference Range Interpretation Comments Calcium Lvl (test code = Calcium Lvl) 9.1 8.5-10.5 N [facility] CenterBcpvvqzHNDRTRZDN6168-38-64 09:18:00 Test Item Value Reference Range Interpretation Comments Sodium Lvl (test code = Sodium Lvl) 146 135-145 H [facility] CenterJyiwfuwOVAQZCYPI1599-05-31 09:18:00 Test Item Value Reference Range Interpretation Comments Potassium Lvl (test code = Potassium 4.0 3.5-5.1 N Lvl) [facility] CenterJpsnxitJNUNZDEAH1667-54-03 09:18:00 Test Item Value Reference Range Interpretation Comments BUN (test code = BUN) 11 7-22 N [facility] CenterEiurkrmHRCBQRXDE8191-50-69 09:18:00 Test Item Value Reference Range Interpretation Comments Glucose Lvl (test code = Glucose Lvl) 107 70-99 H [facility] CenterUnqylqmYSICNGZRU4856-84-32 09:18:00 Test Item Value Reference Range Interpretation Comments Creatinine Lvl (test code = Creatinine 0.7 0.5-1.4 N Lvl) [facility] HospitalWvdrabiPVNWXFHSKK4389-44-88 09:18:00 Test Item Value Reference Range Interpretation Comments RDW (test code = RDW) 13.6 11.5-14.5 N [facility] HospitalDujdmezIFYLLEJZVK8943-71-77 09:18:00 Test Item Value Reference Range Interpretation Comments MCV (test code = MCV) 98.9 80.0-94.0 H [facility] HospitalUqxcjazVFTZZJDMAV3209-75-50 09:18:00 Test Item Value Reference Range Interpretation Comments Hct (test code = Hct) 38.8 42.0-54.0 L [facility] HospitalMqghvsuCEPEROZOMM0551-04-04 09:18:00 Test Item Value Reference Range Interpretation Comments MPV (test code = MPV) 9.7 7.4-10.4 N [facility] CenterIifmidmBWNEOPXLB1671-00-68 09:18:00 Test Item Value Reference Range Interpretation Comments Glucose Lvl (test code = Glucose Lvl) 107 70-99 H [facility] HospitalSsuhsgtDPDJHHUXWO9713-32-91 09:18:00 Test Item Value Reference Range Interpretation Comments Platelet (test code = Platelet) 188 133-450 N [facility] HospitalTqaxahpONRCJETSLX5757-51-14 09:18:00 Test Item Value Reference Range Interpretation Comments MCHC (test code = MCHC) 34.5 32.0-36.0 N [facility] HospitalTglbnskNLVMXDPSXT6444-23-44 09:18:00 Test Item Value Reference Range Interpretation Comments MCH (test code = MCH) 34.2 pg 27.0-31.0 H [facility] HospitalEiahzfaANAHAVUYYH0007-77-33 09:18:00 Test Item Value Reference Range Interpretation Comments Hgb (test code = Hgb) 13.4 14.0-18.0 L [facility] CenterGdrtmacVXHOUSIFT2231-28-43 09:18:00 Test Item Value Reference Range Interpretation Comments AGAP (test code = AGAP) 14.0 10.0-20.0 N [facility] HospitalEppnheaCYFSQCAUPQ6424-08-96 09:18:00 Test Item Value Reference Range Interpretation Comments WBC (test code = WBC) 5.8 3.7-10.4 N [facility] HospitalCnmfexbRWEFETCDLB7908-66-19 09:18:00 Test Item Value Reference Range Interpretation Comments RBC (test code = RBC) 3.92 4.70-6.10 L [facility] HospitalUbhoyrpDYIJZWONEL8683-71-34 09:18:00 Test Item Value Reference Range Interpretation Comments Monocytes # (test code 0.8 See_Comment N [Aut omated message] The = Monocytes #) system which generated this result tra nsmitted reference range : <=0.8. The reference r jessika was not used to int erpret this result as normal/abnormal . [facility] HospitalXddljuvWIQBCMMAVF4646-34-51 09:18:00 Test Item Value Reference Range Interpretation Comments Lymphocytes # (test code = Lymphocytes 2.4 1.0-5.5 N #) [facility] HospitalDzgevcwXEONXRHJXD0381-10-58 09:18:00 Test Item Value Reference Range Interpretation Comments Basophils # (test code 0.0 See_Comment N [Aut omated message] The = Basophils #) system which generated this result tra nsmitted reference range : <=0.2. The reference r jessika was not used to int erpret this result as normal/abnormal . [facility] HospitalNxendsuDKUCPPFYYK9075-47-89 09:18:00 Test Item Value Reference Range Interpretation Comments Eosinophils # (test code 0.2 See_Comment N [A utomated message] The = Eosinophils #) system whic h generated this result tra nsmitted reference range : <=0.5. The reference r jessika was not used to int erpret this result as normal/abnormal . [facility] CenterCaepdweSADVKDMEW2318-05-90 09:18:00 Test Item Value Reference Range Interpretation Comments Creatinine Lvl (test code = Creatinine 0.7 0.5-1.4 N Lvl) [facility] HospitalYflqsbvHJQOZFOQFO5047-26-48 09:18:00 Test Item Value Reference Range Interpretation Comments Lymphocytes (test code = Lymphocytes) 41.3 20.0-40.0 H [facility] HospitalSofrcxtQEYHYGRNEH7271-63-00 09:18:00 Test Item Value Reference Range Interpretation Comments Segs (test code = Segs) 41.0 45.0-75.0 L [facility] HospitalCxhoxjkYXFUVWNEEM1826-01-12 09:18:00 Test Item Value Reference Range Interpretation Comments Eosinophils (test code = 3.9 See_Comment N [A utomated message] The Eosinophils) system which ge nerated this result tra nsmitted reference range : <=4.0. The reference r jessika was not used to int erpret this result as normal/abnormal . [facility] CenterQqmiwiuKKBGDWAMY5750-67-68 09:18:00 Test Item Value Reference Range Interpretation Comments Chloride Lvl (test code = Chloride Lvl) 110 95-109 H [facility] HospitalEnwacjrXRZXTSTNXE6187-58-44 09:18:00 Test Item Value Reference Range Interpretation Comments Segs-Bands # (test code = Segs-Bands #) 2.4 1.5-8.1 N [facility] HospitalTpwnlerDVBBFROBGA7021-75-75 09:18:00 Test Item Value Reference Range Interpretation Comments Basophils (test code = 0.3 See_Comment N [Aut omated message] The Basophils) system which ge nerated this result tra nsmitted reference range : <=1.0. The reference r jessika was not used to int erpret this result as normal/abnormal . [facility] HospitalQqujemzYISVWXQJFW5802-57-31 09:18:00 Test Item Value Reference Range Interpretation Comments Monocytes (test code = Monocytes) 13.5 2.0-12.0 H [facility] HospitalVwnfrvrVJVZLUXHPY8609-64-09 09:18:00 Test Item Value Reference Range Interpretation Comments RDW (test code = RDW) 13.6 11.5-14.5 N [facility] HospitalFkrqnrhUIREMAKTXE0398-83-94 09:18:00 Test Item Value Reference Range Interpretation Comments MCV (test code = MCV) 98.9 80.0-94.0 H [facility] HospitalGanqvjrDBEIQBDDZP5150-99-06 09:18:00 Test Item Value Reference Range Interpretation Comments Hct (test code = Hct) 38.8 42.0-54.0 L [facility] HospitalBybqukwGUQJFZNZET5001-27-31 09:18:00 Test Item Value Reference Range Interpretation Comments MPV (test code = MPV) 9.7 7.4-10.4 N [facility] HospitalEqlaxldJSQQMNBLYH2692-84-54 09:18:00 Test Item Value Reference Range Interpretation Comments Platelet (test code = Platelet) 188 133-450 N [facility] HospitalZcpmviyGGLZANIUMA1220-16-57 09:18:00 Test Item Value Reference Range Interpretation Comments MCHC (test code = MCHC) 34.5 32.0-36.0 N [facility] HospitalXrnbtzaUDGTXTQAEP7161-20-34 09:18:00 Test Item Value Reference Range Interpretation Comments MCH (test code = MCH) 34.2 pg 27.0-31.0 H [facility]YsdgvgwVLRNVQEUD2439-58-26 09:18:00 Test Item Value Reference Range Interpretation Comments CO2 (test code = CO2) 26 24-32 N [facility] HospitalWcrbasjTYBLVGYFSJ2674-53-68 09:18:00 Test Item Value Reference Range Interpretation Comments Hgb (test code = Hgb) 13.4 14.0-18.0 L [facility] HospitalEmuvropXLYDNMGSAH8149-15-40 09:18:00 Test Item Value Reference Range Interpretation Comments WBC (test code = WBC) 5.8 3.7-10.4 N [facility] HospitalFuydcnvXBQOMJJENJ5176-43-24 09:18:00 Test Item Value Reference Range Interpretation Comments RBC (test code = RBC) 3.92 4.70-6.10 L [facility] HospitalKzawejzAAWVOFEDBY6431-26-49 09:18:00 Test Item Value Reference Range Interpretation Comments Monocytes # (test code 0.8 See_Comment N [Aut omated message] The = Monocytes #) system which generated this result tra nsmitted reference range : <=0.8. The reference r jessika was not used to int erpret this result as normal/abnormal . [facility] HospitalJtxricrUOPHKMTOMD9645-77-90 09:18:00 Test Item Value Reference Range Interpretation Comments Lymphocytes # (test code = Lymphocytes 2.4 1.0-5.5 N #) [facility] HospitalLjahojiPYGBDXSGJY0949-19-61 09:18:00 Test Item Value Reference Range Interpretation Comments Basophils # (test code 0.0 See_Comment N [Aut omated message] The = Basophils #) system which generated this result tra nsmitted reference range : <=0.2. The reference r jessika was not used to int erpret this result as normal/abnormal . [facility] HospitalVcknljzUTNSLLJCSG6438-82-94 09:18:00 Test Item Value Reference Range Interpretation Comments Eosinophils # (test code 0.2 See_Comment N [A utomated message] The = Eosinophils #) system whic h generated this result tra nsmitted reference range : <=0.5. The reference r jessika was not used to int erpret this result as normal/abnormal . [facility] CenterEtqbyreRJZLKPFZE6745-53-12 09:18:00 Test Item Value Reference Range Interpretation Comments AGAP (test code = AGAP) 14.0 10.0-20.0 N [facility]BzlloxiAHORGKSPE2905-99-30 09:18:00 Test Item Value Reference Range Interpretation Comments Chloride Lvl (test code = Chloride Lvl) 110 95-109 H [facility] CenterIcpxrcxMLDVPQBEQ7539-98-52 09:18:00 Test Item Value Reference Range Interpretation Comments CO2 (test code = CO2) 26 24-32 N [facility] CenterFnkqtxyKOTQEXCWU3774-88-25 09:18:00 Test Item Value Reference Range Interpretation Comments Calcium Lvl (test code = Calcium Lvl) 9.1 8.5-10.5 N [facility] CenterNrzgwghTANNJYMDR9728-81-63 09:18:00 Test Item Value Reference Range Interpretation Comments Calcium Lvl (test code = Calcium Lvl) 9.1 8.5-10.5 N [facility] CenterXgpjhpgTRGRFINIG7854-36-96 09:18:00 Test Item Value Reference Range Interpretation Comments Sodium Lvl (test code = Sodium Lvl) 146 135-145 H [facility] CenterAqwgounYCUSFTARG1004-70-80 09:18:00 Test Item Value Reference Range Interpretation Comments Potassium Lvl (test code = Potassium 4.0 3.5-5.1 N Lvl) [facility] CenterZonyymgFHGYPDWDU0451-01-36 09:18:00 Test Item Value Reference Range Interpretation Comments BUN (test code = BUN) 11 7-22 N [facility] CenterIbvxddqTEIWUAIWF9699-09-87 09:18:00 Test Item Value Reference Range Interpretation Comments Glucose Lvl (test code = Glucose Lvl) 107 70-99 H [facility] CenterCkapdsdOIHQSTGIT5313-31-42 09:18:00 Test Item Value Reference Range Interpretation Comments Creatinine Lvl (test code = Creatinine 0.7 0.5-1.4 N Lvl) [facility] CenterRvuwynfHQEAXCQSX3317-42-12 09:18:00 Test Item Value Reference Range Interpretation Comments AGAP (test code = AGAP) 14.0 10.0-20.0 N [facility] CenterKpjrgklCSKLKCWJD9779-53-51 09:18:00 Test Item Value Reference Range Interpretation Comments Chloride Lvl (test code = Chloride Lvl) 110 95-109 H [facility] CenterGxouyduSNMLIYHZQ9168-33-60 09:18:00 Test Item Value Reference Range Interpretation Comments CO2 (test code = CO2) 26 24-32 N [facility] CenterWexqtaoWWWTTIUGW9254-36-16 09:18:00 Test Item Value Reference Range Interpretation Comments Calcium Lvl (test code = Calcium Lvl) 9.1 8.5-10.5 N [facility] CenterOzcpksdWBIZXFOOS5309-09-56 09:18:00 Test Item Value Reference Range Interpretation Comments Sodium Lvl (test code = Sodium Lvl) 146 135-145 H [facility] CenterKzcmobgWFHCTJVXZ8835-41-15 09:18:00 Test Item Value Reference Range Interpretation Comments Potassium Lvl (test code = Potassium 4.0 3.5-5.1 N Lvl) [facility] CenterMkkgmjwCCMJJGQTV1392-12-89 09:18:00 Test Item Value Reference Range Interpretation Comments BUN (test code = BUN) 11 7-22 N [facility] CenterWwwsblxIGIFHNUVV4812-41-04 09:18:00 Test Item Value Reference Range Interpretation Comments Glucose Lvl (test code = Glucose Lvl) 107 70-99 H [facility] HospitalIoydoxkQZIVUIQWFU4769-88-07 09:18:00 Test Item Value Reference Range Interpretation Comments Lymphocytes (test code = Lymphocytes) 41.3 20.0-40.0 H [facility] CenterCrauwmgDUSVDXVRI0475-93-47 09:18:00 Test Item Value Reference Range Interpretation Comments Creatinine Lvl (test code = Creatinine 0.7 0.5-1.4 N Lvl) [facility] HospitalPewavphBWQRDTERQO4955-01-07 09:18:00 Test Item Value Reference Range Interpretation Comments RDW (test code = RDW) 13.6 11.5-14.5 N [facility] HospitalQldtqklJIDORXCXIU1693-61-49 09:18:00 Test Item Value Reference Range Interpretation Comments MCV (test code = MCV) 98.9 80.0-94.0 H [facility] HospitalMuekshsMEJKHPHNEK0236-46-00 09:18:00 Test Item Value Reference Range Interpretation Comments Hct (test code = Hct) 38.8 42.0-54.0 L [facility] HospitalLienqgyFMJUSWMKRF0510-18-48 09:18:00 Test Item Value Reference Range Interpretation Comments MPV (test code = MPV) 9.7 7.4-10.4 N [facility] HospitalRhkwbxvWWYIMTYGWB1031-38-39 09:18:00 Test Item Value Reference Range Interpretation Comments Platelet (test code = Platelet) 188 133-450 N [facility] HospitalEyyoupzWYNWXJTIEW4338-78-56 09:18:00 Test Item Value Reference Range Interpretation Comments MCHC (test code = MCHC) 34.5 32.0-36.0 N [facility] HospitalSdjxiyoGSCGVGVMGV1833-61-11 09:18:00 Test Item Value Reference Range Interpretation Comments MCH (test code = MCH) 34.2 pg 27.0-31.0 H [facility] HospitalJpssmdwOFVXVYRCVX8599-72-67 09:18:00 Test Item Value Reference Range Interpretation Comments Hgb (test code = Hgb) 13.4 14.0-18.0 L [facility] HospitalLvtybslUNHGHDWGGN8755-11-90 09:18:00 Test Item Value Reference Range Interpretation Comments WBC (test code = WBC) 5.8 3.7-10.4 N [facility] HospitalNwknxdbBNAHOPYYZU5746-17-56 09:18:00 Test Item Value Reference Range Interpretation Comments RDW (test code = RDW) 13.6 11.5-14.5 N [facility] HospitalVhtjkhzWETULOMJTB2625-10-11 09:18:00 Test Item Value Reference Range Interpretation Comments RBC (test code = RBC) 3.92 4.70-6.10 L [facility] HospitalUmbalrqJZPGTWUVLT3590-43-13 09:18:00 Test Item Value Reference Range Interpretation Comments Monocytes # (test code 0.8 See_Comment N [Aut omated message] The = Monocytes #) system which generated this result tra nsmitted reference range : <=0.8. The reference r jessika was not used to int erpret this result as normal/abnormal . [facility] HospitalXpxaedcGRIHFKDCNO2497-25-13 09:18:00 Test Item Value Reference Range Interpretation Comments Lymphocytes # (test code = Lymphocytes 2.4 1.0-5.5 N #) [facility] HospitalCagbianWLJETUFJVN5789-15-55 09:18:00 Test Item Value Reference Range Interpretation Comments Basophils # (test code 0.0 See_Comment N [Aut omated message] The = Basophils #) system which generated this result tra nsmitted reference range : <=0.2. The reference r jessika was not used to int erpret this result as normal/abnormal . [facility] HospitalPngdltrCXJMXOIKKP7088-33-19 09:18:00 Test Item Value Reference Range Interpretation Comments Eosinophils # (test code 0.2 See_Comment N [A utomated message] The = Eosinophils #) system whic h generated this result tra nsmitted reference range : <=0.5. The reference r jessika was not used to int erpret this result as normal/abnormal . [facility] HospitalTloxzxqAIXUOWSHQQ4523-39-40 09:18:00 Test Item Value Reference Range Interpretation Comments Lymphocytes (test code = Lymphocytes) 41.3 20.0-40.0 H [facility] HospitalQnfdendETDCTJOBOU5549-42-90 09:18:00 Test Item Value Reference Range Interpretation Comments Segs (test code = Segs) 41.0 45.0-75.0 L [facility] HospitalUnrukfjFYELDNCASJ1289-62-98 09:18:00 Test Item Value Reference Range Interpretation Comments Eosinophils (test code = 3.9 See_Comment N [A utomated message] The Eosinophils) system which ge nerated this result tra nsmitted reference range : <=4.0. The reference r jessika was not used to int erpret this result as normal/abnormal . [facility] HospitalFgpovjzNMZGZXSIQO3888-38-69 09:18:00 Test Item Value Reference Range Interpretation Comments Segs-Bands # (test code = Segs-Bands #) 2.4 1.5-8.1 N [facility]UdpghifBMWKNJGQND6729-79-77 09:18:00 Test Item Value Reference Range Interpretation Comments Basophils (test code = 0.3 See_Comment N [Aut omated message] The Basophils) system which ge nerated this result tra nsmitted reference range : <=1.0. The reference r jessika was not used to int erpret this result as normal/abnormal . [facility] HospitalDdbwrafLHHRAKNZFR6799-81-95 09:18:00 Test Item Value Reference Range Interpretation Comments MCV (test code = MCV) 98.9 80.0-94.0 H [facility] RegionBfbmdljCDMUFTSBBT3610-28-22 09:18:00 Test Item Value Reference Range Interpretation Comments Monocytes (test code = Monocytes) 13.5 2.0-12.0 H [facility] RegionQcoiprpUJRRYEXKNW4373-01-56 09:18:00 Test Item Value Reference Range Interpretation Comments Hct (test code = Hct) 38.8 42.0-54.0 L [facility] GLUCOSE LMFVJPR2243-87-84 21:40:00 Test Item Value Reference Range Interpretation Comments Comment1 (test code = Comment1) Notify RN/ [facility] GLUCOSE RXPHGRJ8104-38-80 21:40:00 Test Item Value Reference Range Interpretation Comments Gluc POC Lifscn (test code = Gluc POC 121 70-99 H Lifscn) [facility] GLUCOSE TLSMSTQ7612-44-21 21:40:00 Test Item Value Reference Range Interpretation Comments Comment1 (test code = Comment1) Notify RN/ [facility] GLUCOSE TASKJOF9546-93-43 21:40:00 Test Item Value Reference Range Interpretation Comments Gluc POC Lifscn (test code = Gluc POC 121 70-99 H Lifscn) [facility] GLUCOSE KHJIPDQ5351-66-33 21:40:00 Test Item Value Reference Range Interpretation Comments Comment1 (test code = Comment1) Notify RN/ [facility] GLUCOSE FYQRCDN5828-65-88 21:40:00 Test Item Value Reference Range Interpretation Comments Gluc POC Lifscn (test code = Gluc POC 121 70-99 H Lifscn) [facility] GLUCOSE HXPZEWZ1791-46-43 21:40:00 Test Item Value Reference Range Interpretation Comments Comment1 (test code = Comment1) Notify RN/ [facility] GLUCOSE UUIDIQS7406-25-81 21:40:00 Test Item Value Reference Range Interpretation Comments Gluc POC Lifscn (test code = Gluc POC 121 70-99 H Lifscn) [facility] GLUCOSE MEIEVAM5205-77-49 21:40:00 Test Item Value Reference Range Interpretation Comments Comment1 (test code = Comment1) Notify RN/MD [facility] GLUCOSE LKGJCGY1836-31-07 21:40:00 Test Item Value Reference Range Interpretation Comments Gluc POC Lifscn (test code = Gluc POC 121 70-99 H Lifscn) [facility] HospitalXwiezgySRIFFYCVVK8640-27-03 10:14:00 Test Item Value Reference Range Interpretation Comments Eosinophils # (test code 0.2 See_Comment N [A utomated message] The = Eosinophils #) system whic h generated this result tra nsmitted reference range : <=0.5. The reference r jessika was not used to int erpret this result as normal/abnormal . [facility] HospitalAbwigukEMHTNYSYYL5407-57-82 10:14:00 Test Item Value Reference Range Interpretation Comments Monocytes (test code = Monocytes) 13.2 2.0-12.0 H [facility] HospitalQirgkcwWREASNXDCW1988-80-14 10:14:00 Test Item Value Reference Range Interpretation Comments Basophils # (test code 0.0 See_Comment N [Aut omated message] The = Basophils #) system which generated this result tra nsmitted reference range : <=0.2. The reference r jessika was not used to int erpret this result as normal/abnormal . [facility] HospitalRycvixcLYZCZGIQJK7999-86-34 10:14:00 Test Item Value Reference Range Interpretation Comments MPV (test code = MPV) 9.1 7.4-10.4 N [facility] HospitalIdyrjbkLCGKWOAWNS6554-57-08 10:14:00 Test Item Value Reference Range Interpretation Comments Platelet (test code = Platelet) 183 133-450 N [facility] HospitalWyaltveNCGGOTRJEP6407-58-98 10:14:00 Test Item Value Reference Range Interpretation Comments RDW (test code = RDW) 14.3 11.5-14.5 N [facility] HospitalHtfvjmjUICJTKYADN1483-38-80 10:14:00 Test Item Value Reference Range Interpretation Comments MCHC (test code = MCHC) 34.1 32.0-36.0 N [facility] HospitalGljshsuUEFVFVERQE1524-44-77 10:14:00 Test Item Value Reference Range Interpretation Comments Hct (test code = Hct) 42.1 42.0-54.0 N [facility] HospitalIbhykjmKBNAYVFMXT2556-25-22 10:14:00 Test Item Value Reference Range Interpretation Comments Hgb (test code = Hgb) 14.4 14.0-18.0 N [facility] HospitalKncwowcYUMNYQYEAV3837-79-68 10:14:00 Test Item Value Reference Range Interpretation Comments WBC (test code = WBC) 6.4 3.7-10.4 N [facility] HospitalUqpmbrwLRYQOSAWPU3814-62-15 10:14:00 Test Item Value Reference Range Interpretation Comments MCV (test code = MCV) 99.3 80.0-94.0 H [facility] HospitalCobxdlxRHGUUSIOKD1667-69-02 10:14:00 Test Item Value Reference Range Interpretation Comments RBC (test code = RBC) 4.24 4.70-6.10 L [facility] HospitalZponyvoCDPZMJTOCI1224-84-23 10:14:00 Test Item Value Reference Range Interpretation Comments MCH (test code = MCH) 33.9 pg 27.0-31.0 H [facility] CenterZficqewQJEZMADIX0005-37-23 10:14:00 Test Item Value Reference Range Interpretation Comments CO2 (test code = CO2) 30 24-32 N [facility] CenterOsczpjlQXUVHEZPP9795-23-39 10:14:00 Test Item Value Reference Range Interpretation Comments Calcium Lvl (test code = Calcium Lvl) 9.0 8.5-10.5 N [facility] CenterGhloafcUQDIZEWHO6249-37-63 10:14:00 Test Item Value Reference Range Interpretation Comments Glucose Lvl (test code = Glucose Lvl) 86 70-99 N [facility] CenterPgshtalSIMUQJDTO1303-14-47 10:14:00 Test Item Value Reference Range Interpretation Comments Potassium Lvl (test code = Potassium 4.4 3.5-5.1 N Lvl) [facility] CenterRoronfxTMDYSYPJC2737-31-04 10:14:00 Test Item Value Reference Range Interpretation Comments Chloride Lvl (test code = Chloride Lvl) 107 95-109 N [facility] CenterLshjucaFZFVRCHMZ4682-56-30 10:14:00 Test Item Value Reference Range Interpretation Comments BUN (test code = BUN) 13 7-22 N [facility] CenterTpszzngWXSCBYHQH0187-69-54 10:14:00 Test Item Value Reference Range Interpretation Comments Creatinine Lvl (test code = Creatinine 0.7 0.5-1.4 N Lvl) [facility] CenterGmjygzjVOGFCYVOC9214-98-85 10:14:00 Test Item Value Reference Range Interpretation Comments Sodium Lvl (test code = Sodium Lvl) 144 135-145 N [facility] CenterIcdqffaYYLMNWZIX6310-39-32 10:14:00 Test Item Value Reference Range Interpretation Comments AGAP (test code = AGAP) 11.4 10.0-20.0 N [facility] HospitalOwbkvxvTPAPJKIINI9015-41-47 10:14:00 Test Item Value Reference Range Interpretation Comments Basophils (test code = 0.5 See_Comment N [Aut omated message] The Basophils) system which ge nerated this result tra nsmitted reference range : <=1.0. The reference r jessika was not used to int erpret this result as normal/abnormal . [facility] HospitalMopczwgMDLWAPDMXK5671-67-54 10:14:00 Test Item Value Reference Range Interpretation Comments Eosinophils (test code = 3.1 See_Comment N [A utomated message] The Eosinophils) system which ge nerated this result tra nsmitted reference range : <=4.0. The reference r jessika was not used to int erpret this result as normal/abnormal . [facility] HospitalBisgcvvBVQVDBEOLV8746-93-18 10:14:00 Test Item Value Reference Range Interpretation Comments Segs-Bands # (test code = Segs-Bands #) 3.1 1.5-8.1 N [facility] HospitalUxlanpvTYYINMQEYP6750-13-38 10:14:00 Test Item Value Reference Range Interpretation Comments Lymphocytes # (test code = Lymphocytes 2.3 1.0-5.5 N #) [facility] HospitalYcstbkqVBIETOTMNC1762-17-31 10:14:00 Test Item Value Reference Range Interpretation Comments Monocytes # (test code 0.9 See_Comment H [Aut omated message] The = Monocytes #) system which generated this result tra nsmitted reference range : <=0.8. The reference r jessika was not used to int erpret this result as normal/abnormal . [facility] HospitalIkhzzeyELZQWRQWLT2464-25-00 10:14:00 Test Item Value Reference Range Interpretation Comments Segs (test code = Segs) 48.3 45.0-75.0 N [facility] HospitalNhqmdznHURYHSVXTY3758-57-43 10:14:00 Test Item Value Reference Range Interpretation Comments Lymphocytes (test code = Lymphocytes) 34.9 20.0-40.0 N [facility] HospitalDtkwqhvFJBCPYOIQL1979-54-68 10:14:00 Test Item Value Reference Range Interpretation Comments Macrocyte (test code = 1+ *ABN*(09/25/2011 A Macrocyte) 05:14:00) [facility] HospitalFnjjlaxZGMBSNCEPJ0544-68-59 10:14:00 Test Item Value Reference Range Interpretation Comments Eosinophils # (test code 0.2 See_Comment N [A utomated message] The = Eosinophils #) system whic h generated this result tra nsmitted reference range : <=0.5. The reference r jessika was not used to int erpret this result as normal/abnormal . [facility] HospitalAvxpjbaFCZJHZHSWV3123-07-25 10:14:00 Test Item Value Reference Range Interpretation Comments Monocytes (test code = Monocytes) 13.2 2.0-12.0 H [facility] HospitalJbzfqouISKSYSQPDQ6883-37-47 10:14:00 Test Item Value Reference Range Interpretation Comments Basophils # (test code 0.0 See_Comment N [Aut omated message] The = Basophils #) system which generated this result tra nsmitted reference range : <=0.2. The reference r jessika was not used to int erpret this result as normal/abnormal . [facility] HospitalZaetiirEFBCMZLPCP5123-10-69 10:14:00 Test Item Value Reference Range Interpretation Comments MPV (test code = MPV) 9.1 7.4-10.4 N [facility] HospitalNegbpnxKUBQOYZROI9090-23-22 10:14:00 Test Item Value Reference Range Interpretation Comments Platelet (test code = Platelet) 183 133-450 N [facility] HospitalYforwcnQEMRPKZXXC8326-52-63 10:14:00 Test Item Value Reference Range Interpretation Comments RDW (test code = RDW) 14.3 11.5-14.5 N [facility] HospitalUuinuzsFGKGRYRTSR6949-28-58 10:14:00 Test Item Value Reference Range Interpretation Comments MCHC (test code = MCHC) 34.1 32.0-36.0 N [facility] HospitalIyttjfhHXOAPZXIGP5991-43-75 10:14:00 Test Item Value Reference Range Interpretation Comments Hct (test code = Hct) 42.1 42.0-54.0 N [facility] HospitalRepbgqzBKBADKKHKP7581-76-93 10:14:00 Test Item Value Reference Range Interpretation Comments Hgb (test code = Hgb) 14.4 14.0-18.0 N [facility] HospitalAievykmZIBJPRNSCK6124-05-36 10:14:00 Test Item Value Reference Range Interpretation Comments WBC (test code = WBC) 6.4 3.7-10.4 N [facility] HospitalRafwqvyODNJIFXQJY9291-47-37 10:14:00 Test Item Value Reference Range Interpretation Comments MCV (test code = MCV) 99.3 80.0-94.0 H [facility] HospitalFnqfuphFXXFRUNZNX5773-83-34 10:14:00 Test Item Value Reference Range Interpretation Comments RBC (test code = RBC) 4.24 4.70-6.10 L [facility] HospitalZeglclsLILQIUEZMW2011-37-14 10:14:00 Test Item Value Reference Range Interpretation Comments MCH (test code = MCH) 33.9 pg 27.0-31.0 H [facility] CenterCalykowPOEDZEFSP8713-20-38 10:14:00 Test Item Value Reference Range Interpretation Comments CO2 (test code = CO2) 30 24-32 N [facility] CenterCaxwjqjMTQRHTWPR0013-14-88 10:14:00 Test Item Value Reference Range Interpretation Comments Calcium Lvl (test code = Calcium Lvl) 9.0 8.5-10.5 N [facility] CenterNhanwwdOBTPAKWEC6226-09-22 10:14:00 Test Item Value Reference Range Interpretation Comments Glucose Lvl (test code = Glucose Lvl) 86 70-99 N [facility] CenterQmyvuhsOUPVMUDHH1427-67-46 10:14:00 Test Item Value Reference Range Interpretation Comments Potassium Lvl (test code = Potassium 4.4 3.5-5.1 N Lvl) [facility] CenterQftdbmyKZJTLODQX0512-00-66 10:14:00 Test Item Value Reference Range Interpretation Comments Chloride Lvl (test code = Chloride Lvl) 107 95-109 N [facility] CenterTzbqobhBYVVKPFDP7870-35-00 10:14:00 Test Item Value Reference Range Interpretation Comments BUN (test code = BUN) 13 7-22 N [facility] CenterSjuiqgrMTANMJSNQ7631-09-60 10:14:00 Test Item Value Reference Range Interpretation Comments Creatinine Lvl (test code = Creatinine 0.7 0.5-1.4 N Lvl) [facility] CenterEvdfmbmYTAMEFIIC4614-38-82 10:14:00 Test Item Value Reference Range Interpretation Comments Sodium Lvl (test code = Sodium Lvl) 144 135-145 N [facility] CenterDvyzlntLEIUFBLIC5826-92-31 10:14:00 Test Item Value Reference Range Interpretation Comments AGAP (test code = AGAP) 11.4 10.0-20.0 N [facility] HospitalLeyjayqLORENTYBJY7095-31-82 10:14:00 Test Item Value Reference Range Interpretation Comments Basophils (test code = 0.5 See_Comment N [Aut omated message] The Basophils) system which ge nerated this result tra nsmitted reference range : <=1.0. The reference r jessika was not used to int erpret this result as normal/abnormal . [facility] HospitalOwlqzfyQGDUDKDXBM0672-39-56 10:14:00 Test Item Value Reference Range Interpretation Comments Eosinophils (test code = 3.1 See_Comment N [A utomated message] The Eosinophils) system which ge nerated this result tra nsmitted reference range : <=4.0. The reference r jessika was not used to int erpret this result as normal/abnormal . [facility] HospitalUxdemjbHZGBLBLZOO0478-95-70 10:14:00 Test Item Value Reference Range Interpretation Comments Segs-Bands # (test code = Segs-Bands #) 3.1 1.5-8.1 N [facility] HospitalGvtmthyBFGQBLMABZ8109-58-22 10:14:00 Test Item Value Reference Range Interpretation Comments Lymphocytes # (test code = Lymphocytes 2.3 1.0-5.5 N #) [facility] HospitalBllispeRMMDQTFPHE5836-14-95 10:14:00 Test Item Value Reference Range Interpretation Comments Monocytes # (test code 0.9 See_Comment H [Aut omated message] The = Monocytes #) system which generated this result tra nsmitted reference range : <=0.8. The reference r jessika was not used to int erpret this result as normal/abnormal . [facility] HospitalOssluonFHAANOBJLN0596-79-73 10:14:00 Test Item Value Reference Range Interpretation Comments Segs (test code = Segs) 48.3 45.0-75.0 N [facility] HospitalRnozzzdRHAKONDHCX4009-38-04 10:14:00 Test Item Value Reference Range Interpretation Comments Lymphocytes (test code = Lymphocytes) 34.9 20.0-40.0 N [facility] HospitalDigqpxrWTMDITFNNE2703-70-35 10:14:00 Test Item Value Reference Range Interpretation Comments Macrocyte (test code = 1+ *ABN*(09/25/2011 A Macrocyte) 05:14:00) [facility] HospitalWtqcfgmQWIXOYPTFE6559-96-28 10:14:00 Test Item Value Reference Range Interpretation Comments Eosinophils # (test code 0.2 See_Comment N [A utomated message] The = Eosinophils #) system whic h generated this result tra nsmitted reference range : <=0.5. The reference r jessika was not used to int erpret this result as normal/abnormal . [facility] HospitalGcyqdrsPJOPGMVRHX2809-32-02 10:14:00 Test Item Value Reference Range Interpretation Comments Monocytes (test code = Monocytes) 13.2 2.0-12.0 H [facility] HospitalXfxbzjmWGXVRRXBFT5300-53-49 10:14:00 Test Item Value Reference Range Interpretation Comments Basophils # (test code 0.0 See_Comment N [Aut omated message] The = Basophils #) system which generated this result tra nsmitted reference range : <=0.2. The reference r jessika was not used to int erpret this result as normal/abnormal . [facility] HospitalIcxwjizWJWDGSJSTE9207-96-87 10:14:00 Test Item Value Reference Range Interpretation Comments MPV (test code = MPV) 9.1 7.4-10.4 N [facility] HospitalZfxlkdjIEFHDCCTQR8655-14-51 10:14:00 Test Item Value Reference Range Interpretation Comments Platelet (test code = Platelet) 183 133-450 N [facility] HospitalOdxwdtbPYWMNFTVRZ9736-68-01 10:14:00 Test Item Value Reference Range Interpretation Comments RDW (test code = RDW) 14.3 11.5-14.5 N [facility] HospitalTakbdmzJOKUSGWBIA9373-14-22 10:14:00 Test Item Value Reference Range Interpretation Comments MCHC (test code = MCHC) 34.1 32.0-36.0 N [facility] HospitalEgjqzjbZIHUCGOQGD2359-50-00 10:14:00 Test Item Value Reference Range Interpretation Comments Hct (test code = Hct) 42.1 42.0-54.0 N [facility] HospitalChjrovdTQFWBSAXZD5949-35-17 10:14:00 Test Item Value Reference Range Interpretation Comments Hgb (test code = Hgb) 14.4 14.0-18.0 N [facility] HospitalLrcfxmlIOSQYXQQGF0602-13-24 10:14:00 Test Item Value Reference Range Interpretation Comments WBC (test code = WBC) 6.4 3.7-10.4 N [facility] HospitalAsquhcvCZTGYRUEDK9959-42-62 10:14:00 Test Item Value Reference Range Interpretation Comments MCV (test code = MCV) 99.3 80.0-94.0 H [facility] HospitalOxoibwaWQMEQEAFNN1661-51-20 10:14:00 Test Item Value Reference Range Interpretation Comments RBC (test code = RBC) 4.24 4.70-6.10 L [facility] HospitalHmfvpxpTVFENZJYIW8398-11-91 10:14:00 Test Item Value Reference Range Interpretation Comments MCH (test code = MCH) 33.9 pg 27.0-31.0 H [facility]IzkmvirOKZJCJSYK3178-44-44 10:14:00 Test Item Value Reference Range Interpretation Comments CO2 (test code = CO2) 30 24-32 N [facility] CenterPjxkqnwBFQHXXABG0457-74-17 10:14:00 Test Item Value Reference Range Interpretation Comments Calcium Lvl (test code = Calcium Lvl) 9.0 8.5-10.5 N [facility] CenterJkdanqiWTCXNBGYK6483-84-91 10:14:00 Test Item Value Reference Range Interpretation Comments Glucose Lvl (test code = Glucose Lvl) 86 70-99 N [facility] CenterMwzplbrXYSUCCZOV7363-91-56 10:14:00 Test Item Value Reference Range Interpretation Comments Potassium Lvl (test code = Potassium 4.4 3.5-5.1 N Lvl) [facility] CenterTtdkgbjEXKNZYPZP7426-18-19 10:14:00 Test Item Value Reference Range Interpretation Comments Chloride Lvl (test code = Chloride Lvl) 107 95-109 N [facility] CenterLqgfrmgERGKKZFMD9543-67-78 10:14:00 Test Item Value Reference Range Interpretation Comments BUN (test code = BUN) 13 7-22 N [facility] CenterLelitaiAHYLDKTAX2177-86-99 10:14:00 Test Item Value Reference Range Interpretation Comments Creatinine Lvl (test code = Creatinine 0.7 0.5-1.4 N Lvl) [facility] CenterTrmqaupGEIQFSGLK9161-53-50 10:14:00 Test Item Value Reference Range Interpretation Comments Sodium Lvl (test code = Sodium Lvl) 144 135-145 N [facility] CenterMgscdmkFEBBAGSEN0295-99-57 10:14:00 Test Item Value Reference Range Interpretation Comments AGAP (test code = AGAP) 11.4 10.0-20.0 N [facility] HospitalSjkjcqoILXOQVTUKA8796-72-08 10:14:00 Test Item Value Reference Range Interpretation Comments Basophils (test code = 0.5 See_Comment N [Aut omated message] The Basophils) system which ge nerated this result tra nsmitted reference range : <=1.0. The reference r jessika was not used to int erpret this result as normal/abnormal . [facility] HospitalEyylltyFWVZJJGBRB5099-77-06 10:14:00 Test Item Value Reference Range Interpretation Comments Eosinophils (test code = 3.1 See_Comment N [A utomated message] The Eosinophils) system which ge nerated this result tra nsmitted reference range : <=4.0. The reference r jessika was not used to int erpret this result as normal/abnormal . [facility] HospitalXywqgmeZCFIIFQKHG9181-67-12 10:14:00 Test Item Value Reference Range Interpretation Comments Segs-Bands # (test code = Segs-Bands #) 3.1 1.5-8.1 N [facility] HospitalFigxzdgHIWURFKSWB2949-35-93 10:14:00 Test Item Value Reference Range Interpretation Comments Lymphocytes # (test code = Lymphocytes 2.3 1.0-5.5 N #) [facility] HospitalAlxcuzlGHPGTJVRBK3867-82-50 10:14:00 Test Item Value Reference Range Interpretation Comments Monocytes # (test code 0.9 See_Comment H [Aut omated message] The = Monocytes #) system which generated this result tra nsmitted reference range : <=0.8. The reference r jessika was not used to int erpret this result as normal/abnormal . [facility] HospitalWbwztjcFYSMAVNKBQ9832-88-14 10:14:00 Test Item Value Reference Range Interpretation Comments Segs (test code = Segs) 48.3 45.0-75.0 N [facility] HospitalUgpzggxPJWNCRCEYW7362-32-55 10:14:00 Test Item Value Reference Range Interpretation Comments Lymphocytes (test code = Lymphocytes) 34.9 20.0-40.0 N [facility] HospitalWwrthguOAFUBAYPPK8714-51-91 10:14:00 Test Item Value Reference Range Interpretation Comments Macrocyte (test code = 1+ *ABN*(09/25/2011 A Macrocyte) 05:14:00) [facility] HospitalQuqmabrEUDDRTZRCL9137-51-31 10:14:00 Test Item Value Reference Range Interpretation Comments Eosinophils # (test code 0.2 See_Comment N [A utomated message] The = Eosinophils #) system whic h generated this result tra nsmitted reference range : <=0.5. The reference r jessika was not used to int erpret this result as normal/abnormal . [facility] HospitalNlwwqqhRSJJOKTYYX1654-35-80 10:14:00 Test Item Value Reference Range Interpretation Comments Monocytes (test code = Monocytes) 13.2 2.0-12.0 H [facility] HospitalOnlzathDZXCVUWWFZ2789-42-76 10:14:00 Test Item Value Reference Range Interpretation Comments Basophils # (test code 0.0 See_Comment N [Aut omated message] The = Basophils #) system which generated this result tra nsmitted reference range : <=0.2. The reference r jessika was not used to int erpret this result as normal/abnormal . [facility] HospitalJgxjvmbZVABXYFQOB5463-95-59 10:14:00 Test Item Value Reference Range Interpretation Comments MPV (test code = MPV) 9.1 7.4-10.4 N [facility] HospitalIzkjulzYXJNRGGFTM0532-04-02 10:14:00 Test Item Value Reference Range Interpretation Comments Platelet (test code = Platelet) 183 133-450 N [facility] HospitalEfnxzgxDSMFSKJZBW4264-68-88 10:14:00 Test Item Value Reference Range Interpretation Comments RDW (test code = RDW) 14.3 11.5-14.5 N [facility] HospitalFpbxtawWIPWXXRGTQ2772-97-70 10:14:00 Test Item Value Reference Range Interpretation Comments MCHC (test code = MCHC) 34.1 32.0-36.0 N [facility] HospitalOjikoduLGRAIPYUYY2933-37-38 10:14:00 Test Item Value Reference Range Interpretation Comments Hct (test code = Hct) 42.1 42.0-54.0 N [facility] HospitalTuuzvzcTHRAJRVNTK4161-84-12 10:14:00 Test Item Value Reference Range Interpretation Comments Hgb (test code = Hgb) 14.4 14.0-18.0 N [facility] HospitalCdipeafEHOETYSCIY5261-13-34 10:14:00 Test Item Value Reference Range Interpretation Comments WBC (test code = WBC) 6.4 3.7-10.4 N [facility] HospitalImoouduTIUTYPFILK9225-85-06 10:14:00 Test Item Value Reference Range Interpretation Comments MCV (test code = MCV) 99.3 80.0-94.0 H [facility] HospitalRelpsncCCIJAJESXW8498-05-19 10:14:00 Test Item Value Reference Range Interpretation Comments RBC (test code = RBC) 4.24 4.70-6.10 L [facility] HospitalVninbxvWIYOELADMK1702-06-40 10:14:00 Test Item Value Reference Range Interpretation Comments MCH (test code = MCH) 33.9 pg 27.0-31.0 H [facility] CenterKmzsvnvKAHZMODWU3049-18-92 10:14:00 Test Item Value Reference Range Interpretation Comments CO2 (test code = CO2) 30 24-32 N [facility] CenterSztfznqYEXIZJWMB5773-78-54 10:14:00 Test Item Value Reference Range Interpretation Comments Calcium Lvl (test code = Calcium Lvl) 9.0 8.5-10.5 N [facility] CenterAkfmzglLQTHHQHJZ6541-10-86 10:14:00 Test Item Value Reference Range Interpretation Comments Glucose Lvl (test code = Glucose Lvl) 86 70-99 N [facility] CenterFvskosnZYREEXCDP7457-55-78 10:14:00 Test Item Value Reference Range Interpretation Comments Potassium Lvl (test code = Potassium 4.4 3.5-5.1 N Lvl) [facility] CenterUfiwdteVHQSBQFWV3516-66-40 10:14:00 Test Item Value Reference Range Interpretation Comments Chloride Lvl (test code = Chloride Lvl) 107 95-109 N [facility] CenterBrcvyguOCWTFOBNR2243-75-75 10:14:00 Test Item Value Reference Range Interpretation Comments BUN (test code = BUN) 13 7-22 N [facility] CenterAqngguoRWFBQHFYW2348-63-38 10:14:00 Test Item Value Reference Range Interpretation Comments Creatinine Lvl (test code = Creatinine 0.7 0.5-1.4 N Lvl) [facility] CenterFnenliqPWFNCFLPH2968-21-51 10:14:00 Test Item Value Reference Range Interpretation Comments Sodium Lvl (test code = Sodium Lvl) 144 135-145 N [facility] CenterJkrnjugWEDMWCDPL1991-18-87 10:14:00 Test Item Value Reference Range Interpretation Comments AGAP (test code = AGAP) 11.4 10.0-20.0 N [facility] HospitalApbyyhtRPGBKTHIDH6059-69-39 10:14:00 Test Item Value Reference Range Interpretation Comments Basophils (test code = 0.5 See_Comment N [Aut omated message] The Basophils) system which ge nerated this result tra nsmitted reference range : <=1.0. The reference r jessika was not used to int erpret this result as normal/abnormal . [facility] HospitalUwynamgVSJGWFJSOA5850-50-41 10:14:00 Test Item Value Reference Range Interpretation Comments Eosinophils (test code = 3.1 See_Comment N [A utomated message] The Eosinophils) system which ge nerated this result tra nsmitted reference range : <=4.0. The reference r jessika was not used to int erpret this result as normal/abnormal . [facility] HospitalLziaosqHVBIFWUQEQ9278-36-21 10:14:00 Test Item Value Reference Range Interpretation Comments Segs-Bands # (test code = Segs-Bands #) 3.1 1.5-8.1 N [facility] HospitalXampmvzUCBSGMCGGM3816-13-44 10:14:00 Test Item Value Reference Range Interpretation Comments Lymphocytes # (test code = Lymphocytes 2.3 1.0-5.5 N #) [facility] HospitalOygnxrkRYTKKXPCII7120-11-73 10:14:00 Test Item Value Reference Range Interpretation Comments Monocytes # (test code 0.9 See_Comment H [Aut omated message] The = Monocytes #) system which generated this result tra nsmitted reference range : <=0.8. The reference r jessika was not used to int erpret this result as normal/abnormal . [facility] HospitalCczysfqHIATWMAISU9108-08-00 10:14:00 Test Item Value Reference Range Interpretation Comments Segs (test code = Segs) 48.3 45.0-75.0 N [facility] HospitalBhigpvgYGMOUUBSSD4148-03-87 10:14:00 Test Item Value Reference Range Interpretation Comments Lymphocytes (test code = Lymphocytes) 34.9 20.0-40.0 N [facility] HospitalLljtskcGUITQEPRTL8228-11-06 10:14:00 Test Item Value Reference Range Interpretation Comments Macrocyte (test code = 1+ *ABN*(09/25/2011 A Macrocyte) 05:14:00) [facility] HospitalAitllpvZPKHWYNWHF4817-72-00 10:14:00 Test Item Value Reference Range Interpretation Comments Eosinophils # (test code 0.2 See_Comment N [A utomated message] The = Eosinophils #) system whic h generated this result tra nsmitted reference range : <=0.5. The reference r jessika was not used to int erpret this result as normal/abnormal . [facility] HospitalDgvgoomRXQBIJPBQL1926-95-20 10:14:00 Test Item Value Reference Range Interpretation Comments Monocytes (test code = Monocytes) 13.2 2.0-12.0 H [facility] HospitalBlhhusoRPYGHXOAGD7466-82-64 10:14:00 Test Item Value Reference Range Interpretation Comments Basophils # (test code 0.0 See_Comment N [Aut omated message] The = Basophils #) system which generated this result tra nsmitted reference range : <=0.2. The reference r jessika was not used to int erpret this result as normal/abnormal . [facility] HospitalJalamwrMJTIZPDYTN6134-15-52 10:14:00 Test Item Value Reference Range Interpretation Comments MPV (test code = MPV) 9.1 7.4-10.4 N [facility] HospitalZuocoohPGYCIFQXLT0534-42-60 10:14:00 Test Item Value Reference Range Interpretation Comments Platelet (test code = Platelet) 183 133-450 N [facility] HospitalVbxhabpREYRGACMIE4723-39-61 10:14:00 Test Item Value Reference Range Interpretation Comments RDW (test code = RDW) 14.3 11.5-14.5 N [facility] HospitalChayxvjISSHSWZGJI9284-49-04 10:14:00 Test Item Value Reference Range Interpretation Comments MCHC (test code = MCHC) 34.1 32.0-36.0 N [facility] HospitalQeshrmeWYUDIUCHYX4708-25-44 10:14:00 Test Item Value Reference Range Interpretation Comments Hct (test code = Hct) 42.1 42.0-54.0 N [facility] HospitalXizfrbqWMWZTSRYPI8514-37-91 10:14:00 Test Item Value Reference Range Interpretation Comments Hgb (test code = Hgb) 14.4 14.0-18.0 N [facility] HospitalYalxtlzYLEUICDGXX7425-25-93 10:14:00 Test Item Value Reference Range Interpretation Comments WBC (test code = WBC) 6.4 3.7-10.4 N [facility] HospitalMruzkvaTJARPFWTGP0984-56-99 10:14:00 Test Item Value Reference Range Interpretation Comments MCV (test code = MCV) 99.3 80.0-94.0 H [facility] HospitalRejzdsvYEVRAUGFGU0232-62-02 10:14:00 Test Item Value Reference Range Interpretation Comments RBC (test code = RBC) 4.24 4.70-6.10 L [facility] HospitalPekywwjAITEJRQEJM0894-94-14 10:14:00 Test Item Value Reference Range Interpretation Comments MCH (test code = MCH) 33.9 pg 27.0-31.0 H [facility] CenterGpvesydMXRQCNPWO1233-83-65 10:14:00 Test Item Value Reference Range Interpretation Comments CO2 (test code = CO2) 30 24-32 N [facility] CenterLpayumzWMQSMWLYU9008-48-25 10:14:00 Test Item Value Reference Range Interpretation Comments Calcium Lvl (test code = Calcium Lvl) 9.0 8.5-10.5 N [facility] CenterSnptdivFGLFDWKWZ7425-01-59 10:14:00 Test Item Value Reference Range Interpretation Comments Glucose Lvl (test code = Glucose Lvl) 86 70-99 N [facility] CenterHacaoqvQWQGAFXJO5650-28-45 10:14:00 Test Item Value Reference Range Interpretation Comments Potassium Lvl (test code = Potassium 4.4 3.5-5.1 N Lvl) [facility] CenterNmgfghjNTBNZPUNB0086-38-31 10:14:00 Test Item Value Reference Range Interpretation Comments Chloride Lvl (test code = Chloride Lvl) 107 95-109 N [facility] CenterIrbawawVWPBBRKVB7100-36-15 10:14:00 Test Item Value Reference Range Interpretation Comments BUN (test code = BUN) 13 7-22 N [facility] CenterWitdnndXRFJNNICO3507-12-64 10:14:00 Test Item Value Reference Range Interpretation Comments Creatinine Lvl (test code = Creatinine 0.7 0.5-1.4 N Lvl) [facility] CenterKmktfrcFFVZQRWCI1353-10-60 10:14:00 Test Item Value Reference Range Interpretation Comments Sodium Lvl (test code = Sodium Lvl) 144 135-145 N [facility] CenterJmkanpfLKRHHCMPN6832-04-16 10:14:00 Test Item Value Reference Range Interpretation Comments AGAP (test code = AGAP) 11.4 10.0-20.0 N [facility] HospitalVsvenptIIVMWFJWUJ4531-05-25 10:14:00 Test Item Value Reference Range Interpretation Comments Basophils (test code = 0.5 See_Comment N [Aut omated message] The Basophils) system which ge nerated this result tra nsmitted reference range : <=1.0. The reference r jessika was not used to int erpret this result as normal/abnormal . [facility] HospitalYcusjbwZKDZSDQAZS4463-69-71 10:14:00 Test Item Value Reference Range Interpretation Comments Eosinophils (test code = 3.1 See_Comment N [A utomated message] The Eosinophils) system which ge nerated this result tra nsmitted reference range : <=4.0. The reference r jessika was not used to int erpret this result as normal/abnormal . [facility] HospitalGgxzpbpTDDLZBQIEU0797-64-91 10:14:00 Test Item Value Reference Range Interpretation Comments Segs-Bands # (test code = Segs-Bands #) 3.1 1.5-8.1 N [facility] HospitalPetcpseTFPIZVBNLX2994-82-08 10:14:00 Test Item Value Reference Range Interpretation Comments Lymphocytes # (test code = Lymphocytes 2.3 1.0-5.5 N #) [facility] HospitalQgulfalHLXVPJMJQL2994-65-83 10:14:00 Test Item Value Reference Range Interpretation Comments Monocytes # (test code 0.9 See_Comment H [Aut omated message] The = Monocytes #) system which generated this result tra nsmitted reference range : <=0.8. The reference r jessika was not used to int erpret this result as normal/abnormal . [facility] HospitalEwizvxtVUAFNXUGZB4058-12-45 10:14:00 Test Item Value Reference Range Interpretation Comments Segs (test code = Segs) 48.3 45.0-75.0 N [facility] HospitalZoxbbzwNJRFKECHPK7846-69-14 10:14:00 Test Item Value Reference Range Interpretation Comments Lymphocytes (test code = Lymphocytes) 34.9 20.0-40.0 N [facility] HospitalMzecbveRBCITHWONJ2893-73-82 10:14:00 Test Item Value Reference Range Interpretation Comments Macrocyte (test code = 1+ *ABN*(09/25/2011 A Macrocyte) 05:14:00) [facility] CenterQhueuntBFUWUDLSO6587-06-49 09:04:00 Test Item Value Reference Range Interpretation Comments CO2 (test code = CO2) 25 24-32 N [facility] CenterBxlfhkaCRHWKDWDT1100-29-56 09:04:00 Test Item Value Reference Range Interpretation Comments Calcium Lvl (test code = Calcium Lvl) 9.0 8.5-10.5 N [facility] CenterBqujetbEKULCLIBV8346-98-58 09:04:00 Test Item Value Reference Range Interpretation Comments AGAP (test code = AGAP) 13.1 10.0-20.0 N [facility] HospitalXezqfkzHQXEJLIHAJ2544-15-00 09:04:00 Test Item Value Reference Range Interpretation Comments Macrocyte (test code = 1+ *ABN*(09/18/2011 A Macrocyte) 04:04:00) [facility] HospitalJnmfosjDKYJZDPXTX1371-78-07 09:04:00 Test Item Value Reference Range Interpretation Comments Monocytes # (test code 0.9 See_Comment H [Aut omated message] The = Monocytes #) system which generated this result tra nsmitted reference range : <=0.8. The reference r jessika was not used to int erpret this result as normal/abnormal . [facility] HospitalCkkkmbqEHDDPACDME5025-46-94 09:04:00 Test Item Value Reference Range Interpretation Comments Lymphocytes # (test code = Lymphocytes 2.1 1.0-5.5 N #) [facility] HospitalAhntgucVUKLDHWZFZ2212-42-76 09:04:00 Test Item Value Reference Range Interpretation Comments Segs (test code = Segs) 54.6 45.0-75.0 N [facility] HospitalEglkxtgCTTZVETRJO5502-49-37 09:04:00 Test Item Value Reference Range Interpretation Comments Eosinophils # (test code 0.2 See_Comment N [A utomated message] The = Eosinophils #) system whic h generated this result tra nsmitted reference range : <=0.5. The reference r jessika was not used to int erpret this result as normal/abnormal . [facility] HospitalBlbedjtKMYLQPXRTZ8322-18-03 09:04:00 Test Item Value Reference Range Interpretation Comments Eosinophils (test code = 2.3 See_Comment N [A utomated message] The Eosinophils) system which ge nerated this result tra nsmitted reference range : <=4.0. The reference r jessika was not used to int erpret this result as normal/abnormal . [facility] HospitalCrbuufpLIEGJUOUDB4917-31-61 09:04:00 Test Item Value Reference Range Interpretation Comments Monocytes (test code = Monocytes) 12.9 2.0-12.0 H [facility] HospitalAzgalhsAPGANOGILU4097-56-02 09:04:00 Test Item Value Reference Range Interpretation Comments Lymphocytes (test code = Lymphocytes) 29.9 20.0-40.0 N [facility] HospitalPrjzxpdSYVDLETSUX1893-08-17 09:04:00 Test Item Value Reference Range Interpretation Comments Basophils (test code = 0.3 See_Comment N [Aut omated message] The Basophils) system which ge nerated this result tra nsmitted reference range : <=1.0. The reference r jessika was not used to int erpret this result as normal/abnormal . [facility] HospitalTjvvpssYWVMVVYGKM0743-22-25 09:04:00 Test Item Value Reference Range Interpretation Comments Basophils # (test code 0.0 See_Comment N [Aut omated message] The = Basophils #) system which generated this result tra nsmitted reference range : <=0.2. The reference r jsesika was not used to int erpret this result as normal/abnormal . [facility] HospitalHuvzwjqBZAUKHZONV7972-68-86 09:04:00 Test Item Value Reference Range Interpretation Comments Segs-Bands # (test code = Segs-Bands #) 3.8 1.5-8.1 N [facility] HospitalYfqqjphYNBKMLSWHW7140-57-30 09:04:00 Test Item Value Reference Range Interpretation Comments Hct (test code = Hct) 43.5 42.0-54.0 N [facility] HospitalVunidzdCCAPISEFWB7407-59-27 09:04:00 Test Item Value Reference Range Interpretation Comments MCV (test code = MCV) 99.4 80.0-94.0 H [facility] HospitalVersidtOTBDSTRVBF3696-17-29 09:04:00 Test Item Value Reference Range Interpretation Comments Hgb (test code = Hgb) 14.8 14.0-18.0 N [facility] HospitalVktvbmrMSTWFLENCA1537-16-02 09:04:00 Test Item Value Reference Range Interpretation Comments RBC (test code = RBC) 4.37 4.70-6.10 L [facility] HospitalCyfjpqnXZBYAILDHQ4082-67-60 09:04:00 Test Item Value Reference Range Interpretation Comments WBC (test code = WBC) 6.9 3.7-10.4 N [facility] HospitalYwiyptuJNGNHURXKT7553-94-27 09:04:00 Test Item Value Reference Range Interpretation Comments Platelet (test code = Platelet) 178 133-450 N [facility] HospitalOzamdadMZTSQOFXEU4121-93-16 09:04:00 Test Item Value Reference Range Interpretation Comments MCHC (test code = MCHC) 34.2 32.0-36.0 N [facility] HospitalSbasgovODCTQHSIBL3644-66-99 09:04:00 Test Item Value Reference Range Interpretation Comments MPV (test code = MPV) 9.1 7.4-10.4 N [facility] HospitalNeftdnkHZPYBHEORO9620-75-69 09:04:00 Test Item Value Reference Range Interpretation Comments RDW (test code = RDW) 13.9 11.5-14.5 N [facility] HospitalMgjswdwZTFNRGMUJS0368-51-79 09:04:00 Test Item Value Reference Range Interpretation Comments MCH (test code = MCH) 33.9 pg 27.0-31.0 H [facility] CenterMphwvqiHCCZNMFIZ1320-24-31 09:04:00 Test Item Value Reference Range Interpretation Comments Glucose Lvl (test code = Glucose Lvl) 95 70-99 N [facility] CenterZqjlwwdQNQWRMSTR8164-87-74 09:04:00 Test Item Value Reference Range Interpretation Comments BUN (test code = BUN) 9 7-22 N [facility] CenterWbtxwuiXNGTILHCJ6758-51-76 09:04:00 Test Item Value Reference Range Interpretation Comments Creatinine Lvl (test code = Creatinine 0.6 0.5-1.4 N Lvl) [facility] CenterGmlmabkQXEOOTHGY4463-36-33 09:04:00 Test Item Value Reference Range Interpretation Comments Sodium Lvl (test code = Sodium Lvl) 141 135-145 N [facility] CenterXobuqlmZSVBOUNGD0661-98-49 09:04:00 Test Item Value Reference Range Interpretation Comments Potassium Lvl (test code = Potassium 4.1 3.5-5.1 N Lvl) [facility] CenterFrfbitlUSLJTGPMS2997-11-42 09:04:00 Test Item Value Reference Range Interpretation Comments Chloride Lvl (test code = Chloride Lvl) 107 95-109 N [facility] CenterNsuggqiKZKBWJQLK3765-86-00 09:04:00 Test Item Value Reference Range Interpretation Comments Calcium Lvl (test code = Calcium Lvl) 9.0 8.5-10.5 N [facility] CenterCtzvsyhBRYXWHJNX8412-38-19 09:04:00 Test Item Value Reference Range Interpretation Comments AGAP (test code = AGAP) 13.1 10.0-20.0 N [facility] HospitalUgrijaqWOCVXQHQYJ8539-29-68 09:04:00 Test Item Value Reference Range Interpretation Comments Macrocyte (test code = 1+ *ABN*(09/18/2011 A Macrocyte) 04:04:00) [facility] HospitalWxejeahKFYTSLQSMT6302-62-06 09:04:00 Test Item Value Reference Range Interpretation Comments Monocytes # (test code 0.9 See_Comment H [Aut omated message] The = Monocytes #) system which generated this result tra nsmitted reference range : <=0.8. The reference r jessika was not used to int erpret this result as normal/abnormal . [facility] HospitalZcsbfmpAGYXZTGQLS7799-30-27 09:04:00 Test Item Value Reference Range Interpretation Comments Lymphocytes # (test code = Lymphocytes 2.1 1.0-5.5 N #) [facility] HospitalZmwzsizDCPJONBUOG8835-47-14 09:04:00 Test Item Value Reference Range Interpretation Comments Segs (test code = Segs) 54.6 45.0-75.0 N [facility] HospitalPxnwmhuOMDKOPVGFW5308-45-54 09:04:00 Test Item Value Reference Range Interpretation Comments Eosinophils # (test code 0.2 See_Comment N [A utomated message] The = Eosinophils #) system whic h generated this result tra nsmitted reference range : <=0.5. The reference r jessika was not used to int erpret this result as normal/abnormal . [facility] HospitalKgaskvdSRUSAGIQNO5479-77-04 09:04:00 Test Item Value Reference Range Interpretation Comments Eosinophils (test code = 2.3 See_Comment N [A utomated message] The Eosinophils) system which ge nerated this result tra nsmitted reference range : <=4.0. The reference r jessika was not used to int erpret this result as normal/abnormal . [facility] HospitalGhzrmpfHVJJBTXBTE6994-52-02 09:04:00 Test Item Value Reference Range Interpretation Comments Monocytes (test code = Monocytes) 12.9 2.0-12.0 H [facility] HospitalJnlyrbkXLJOVMNGJY8413-82-11 09:04:00 Test Item Value Reference Range Interpretation Comments Lymphocytes (test code = Lymphocytes) 29.9 20.0-40.0 N [facility] HospitalHpiqeohVIYKXKDULY1669-10-16 09:04:00 Test Item Value Reference Range Interpretation Comments Basophils (test code = 0.3 See_Comment N [Aut omated message] The Basophils) system which ge nerated this result tra nsmitted reference range : <=1.0. The reference r jessika was not used to int erpret this result as normal/abnormal . [facility] HospitalLzgfpgfYUVQUBSUAI8145-57-95 09:04:00 Test Item Value Reference Range Interpretation Comments Basophils # (test code 0.0 See_Comment N [Aut omated message] The = Basophils #) system which generated this result tra nsmitted reference range : <=0.2. The reference r jessika was not used to int erpret this result as normal/abnormal . [facility] HospitalCfslqmyZMHRWINYJU3064-10-40 09:04:00 Test Item Value Reference Range Interpretation Comments Segs-Bands # (test code = Segs-Bands #) 3.8 1.5-8.1 N [facility] HospitalYdwkvsaPOZTAYVEPD9232-98-46 09:04:00 Test Item Value Reference Range Interpretation Comments Hct (test code = Hct) 43.5 42.0-54.0 N [facility] HospitalWhkqjepNEIYNUJDPF5681-84-88 09:04:00 Test Item Value Reference Range Interpretation Comments MCV (test code = MCV) 99.4 80.0-94.0 H [facility] HospitalJgcdjcvTMBQPDNBKE1575-17-07 09:04:00 Test Item Value Reference Range Interpretation Comments Hgb (test code = Hgb) 14.8 14.0-18.0 N [facility] HospitalOpdljvnOVYZMAZZOS3784-66-97 09:04:00 Test Item Value Reference Range Interpretation Comments RBC (test code = RBC) 4.37 4.70-6.10 L [facility] HospitalVizvsjiRYYIGMBZQU9881-79-13 09:04:00 Test Item Value Reference Range Interpretation Comments WBC (test code = WBC) 6.9 3.7-10.4 N [facility] HospitalPgtdtrvQSJAVBLIEN8338-79-13 09:04:00 Test Item Value Reference Range Interpretation Comments Platelet (test code = Platelet) 178 133-450 N [facility] HospitalDkweydwLXBVGZEZLM0211-43-72 09:04:00 Test Item Value Reference Range Interpretation Comments MCHC (test code = MCHC) 34.2 32.0-36.0 N [facility] HospitalXiblqtnPYDRDZEUSF1983-13-54 09:04:00 Test Item Value Reference Range Interpretation Comments MPV (test code = MPV) 9.1 7.4-10.4 N [facility] HospitalIuhouxbIQEVLERCXP2655-25-06 09:04:00 Test Item Value Reference Range Interpretation Comments RDW (test code = RDW) 13.9 11.5-14.5 N [facility] HospitalLrsfbqfBYTGRTKXVG7892-33-25 09:04:00 Test Item Value Reference Range Interpretation Comments MCH (test code = MCH) 33.9 pg 27.0-31.0 H [facility]OwjfmoiGMOMBVBWY2090-74-83 09:04:00 Test Item Value Reference Range Interpretation Comments Glucose Lvl (test code = Glucose Lvl) 95 70-99 N [facility] CenterAnqihilTITCAQQZT9017-48-68 09:04:00 Test Item Value Reference Range Interpretation Comments BUN (test code = BUN) 9 7-22 N [facility] CenterThmagumBHJVDNNLQ3233-64-39 09:04:00 Test Item Value Reference Range Interpretation Comments Creatinine Lvl (test code = Creatinine 0.6 0.5-1.4 N Lvl) [facility] CenterRmqnzuyVNZUNVRKW0637-03-20 09:04:00 Test Item Value Reference Range Interpretation Comments Sodium Lvl (test code = Sodium Lvl) 141 135-145 N [facility] CenterRiuadfeMZQWBXFDP6708-45-08 09:04:00 Test Item Value Reference Range Interpretation Comments Potassium Lvl (test code = Potassium 4.1 3.5-5.1 N Lvl) [facility] CenterAifqcnxMRIEHTYWY6095-27-69 09:04:00 Test Item Value Reference Range Interpretation Comments Chloride Lvl (test code = Chloride Lvl) 107 95-109 N [facility] CenterKamrygjADMVBIHTL1477-75-37 09:04:00 Test Item Value Reference Range Interpretation Comments CO2 (test code = CO2) 25 24-32 N [facility] CenterTkdlfldGHFUXAQIQ2353-45-96 09:04:00 Test Item Value Reference Range Interpretation Comments Calcium Lvl (test code = Calcium Lvl) 9.0 8.5-10.5 N [facility] CenterYqzawosNQKLMDKOJ6878-20-89 09:04:00 Test Item Value Reference Range Interpretation Comments AGAP (test code = AGAP) 13.1 10.0-20.0 N [facility] HospitalAubekkgEWIAWJGMVE3743-94-09 09:04:00 Test Item Value Reference Range Interpretation Comments Macrocyte (test code = 1+ *ABN*(09/18/2011 A Macrocyte) 04:04:00) [facility] HospitalZctjejbPLXWZOKQRD4959-19-01 09:04:00 Test Item Value Reference Range Interpretation Comments Monocytes # (test code 0.9 See_Comment H [Aut omated message] The = Monocytes #) system which generated this result tra nsmitted reference range : <=0.8. The reference r jessika was not used to int erpret this result as normal/abnormal . [facility] HospitalBktyxmvBHTGKWBWHT9948-22-79 09:04:00 Test Item Value Reference Range Interpretation Comments Lymphocytes # (test code = Lymphocytes 2.1 1.0-5.5 N #) [facility] HospitalMurmvywBFHTXSIXCO4664-70-28 09:04:00 Test Item Value Reference Range Interpretation Comments Segs (test code = Segs) 54.6 45.0-75.0 N [facility] HospitalFlixzybSUNLJKPBEQ5849-94-00 09:04:00 Test Item Value Reference Range Interpretation Comments Eosinophils # (test code 0.2 See_Comment N [A utomated message] The = Eosinophils #) system whic h generated this result tra nsmitted reference range : <=0.5. The reference r jessika was not used to int erpret this result as normal/abnormal . [facility] HospitalCnbhtapWYPDEPAGRH4202-31-64 09:04:00 Test Item Value Reference Range Interpretation Comments Eosinophils (test code = 2.3 See_Comment N [A utomated message] The Eosinophils) system which ge nerated this result tra nsmitted reference range : <=4.0. The reference r jessika was not used to int erpret this result as normal/abnormal . [facility] HospitalOlvhtsbNWCHAQOYLM3242-31-24 09:04:00 Test Item Value Reference Range Interpretation Comments Monocytes (test code = Monocytes) 12.9 2.0-12.0 H [facility] HospitalAkbtoajLRULZGTVTL9695-21-16 09:04:00 Test Item Value Reference Range Interpretation Comments Lymphocytes (test code = Lymphocytes) 29.9 20.0-40.0 N [facility] HospitalRcxdcodWGAUOLRLDV4515-14-67 09:04:00 Test Item Value Reference Range Interpretation Comments Basophils (test code = 0.3 See_Comment N [Aut omated message] The Basophils) system which ge nerated this result tra nsmitted reference range : <=1.0. The reference r jessika was not used to int erpret this result as normal/abnormal . [facility] HospitalWlyvrqjMATCUESDOH7044-97-68 09:04:00 Test Item Value Reference Range Interpretation Comments Basophils # (test code 0.0 See_Comment N [Aut omated message] The = Basophils #) system which generated this result tra nsmitted reference range : <=0.2. The reference r jessika was not used to int erpret this result as normal/abnormal . [facility] HospitalSqsilwgZZFJAUYUNK3573-70-57 09:04:00 Test Item Value Reference Range Interpretation Comments Segs-Bands # (test code = Segs-Bands #) 3.8 1.5-8.1 N [facility] HospitalTvabvbfAIURRKYGCS0276-43-83 09:04:00 Test Item Value Reference Range Interpretation Comments Hct (test code = Hct) 43.5 42.0-54.0 N [facility] HospitalQogspgtVTIAEJLEDT7216-57-37 09:04:00 Test Item Value Reference Range Interpretation Comments MCV (test code = MCV) 99.4 80.0-94.0 H [facility] HospitalDskpdwqFUIKWYRETN8723-21-92 09:04:00 Test Item Value Reference Range Interpretation Comments Hgb (test code = Hgb) 14.8 14.0-18.0 N [facility] HospitalAoimighMHJXALSYDE3465-42-80 09:04:00 Test Item Value Reference Range Interpretation Comments RBC (test code = RBC) 4.37 4.70-6.10 L [facility] HospitalBlnhukdXSTQCRFILE9697-86-37 09:04:00 Test Item Value Reference Range Interpretation Comments WBC (test code = WBC) 6.9 3.7-10.4 N [facility] HospitalDxpkokrKQOKMNNAQB9299-77-74 09:04:00 Test Item Value Reference Range Interpretation Comments Platelet (test code = Platelet) 178 133-450 N [facility] HospitalSqnsfsnMZDZMHVOVO9084-85-58 09:04:00 Test Item Value Reference Range Interpretation Comments MCHC (test code = MCHC) 34.2 32.0-36.0 N [facility] HospitalSfbmkpuGIRSMYZYDO9894-16-24 09:04:00 Test Item Value Reference Range Interpretation Comments MPV (test code = MPV) 9.1 7.4-10.4 N [facility] HospitalFgerjlgXIQSBOKUUD5819-75-98 09:04:00 Test Item Value Reference Range Interpretation Comments RDW (test code = RDW) 13.9 11.5-14.5 N [facility] HospitalLcuelhzFRBAQAFIEU4004-80-78 09:04:00 Test Item Value Reference Range Interpretation Comments MCH (test code = MCH) 33.9 pg 27.0-31.0 H [facility] CenterZsrugjiGZQTNUAMJ4066-86-10 09:04:00 Test Item Value Reference Range Interpretation Comments Glucose Lvl (test code = Glucose Lvl) 95 70-99 N [facility] CenterPygkkbaATVNUKPGB5352-38-59 09:04:00 Test Item Value Reference Range Interpretation Comments BUN (test code = BUN) 9 7-22 N [facility] CenterPftdmliTQCLCTGAO8291-94-56 09:04:00 Test Item Value Reference Range Interpretation Comments Creatinine Lvl (test code = Creatinine 0.6 0.5-1.4 N Lvl) [facility] CenterPcwmbkbVDSZKJNDW8636-15-18 09:04:00 Test Item Value Reference Range Interpretation Comments Sodium Lvl (test code = Sodium Lvl) 141 135-145 N [facility] CenterEljdnnrCSPBQRDJD8893-19-18 09:04:00 Test Item Value Reference Range Interpretation Comments Potassium Lvl (test code = Potassium 4.1 3.5-5.1 N Lvl) [facility] CenterKrgulfxSXXIJCNOA6628-39-39 09:04:00 Test Item Value Reference Range Interpretation Comments Chloride Lvl (test code = Chloride Lvl) 107 95-109 N [facility] CenterNqngdhdCABXEIEQM9891-80-43 09:04:00 Test Item Value Reference Range Interpretation Comments CO2 (test code = CO2) 25 24-32 N [facility] CenterJeygnelJKWGPRLUF2601-08-46 09:04:00 Test Item Value Reference Range Interpretation Comments Calcium Lvl (test code = Calcium Lvl) 9.0 8.5-10.5 N [facility] CenterRicmgenBDVAIKSNO4664-85-39 09:04:00 Test Item Value Reference Range Interpretation Comments AGAP (test code = AGAP) 13.1 10.0-20.0 N [facility] HospitalPlcgnuyNJNWLZQOQY9699-00-73 09:04:00 Test Item Value Reference Range Interpretation Comments Macrocyte (test code = 1+ *ABN*(09/18/2011 A Macrocyte) 04:04:00) [facility] HospitalIlricxaXVMKPTRTGJ2172-99-37 09:04:00 Test Item Value Reference Range Interpretation Comments Monocytes # (test code 0.9 See_Comment H [Aut omated message] The = Monocytes #) system which generated this result tra nsmitted reference range : <=0.8. The reference r jessika was not used to int erpret this result as normal/abnormal . [facility] HospitalDbsrbifLYMVHFDKXN5416-27-13 09:04:00 Test Item Value Reference Range Interpretation Comments Lymphocytes # (test code = Lymphocytes 2.1 1.0-5.5 N #) [facility] HospitalPrvntxnXBQCBFNBNZ9055-55-85 09:04:00 Test Item Value Reference Range Interpretation Comments Segs (test code = Segs) 54.6 45.0-75.0 N [facility] HospitalQwgqmwkDQUZITDLGU0954-17-46 09:04:00 Test Item Value Reference Range Interpretation Comments Eosinophils # (test code 0.2 See_Comment N [A utomated message] The = Eosinophils #) system wh h generated this result tra nsmitted reference range : <=0.5. The reference r jessika was not used to int erpret this result as normal/abnormal . [facility] HospitalMjxyushIWSXHVZFWQ5771-01-78 09:04:00 Test Item Value Reference Range Interpretation Comments Eosinophils (test code = 2.3 See_Comment N [A utomated message] The Eosinophils) system which ge nerated this result tra nsmitted reference range : <=4.0. The reference r jessika was not used to int erpret this result as normal/abnormal . [facility] HospitalNfwwksdAPXFVUELYM5470-12-10 09:04:00 Test Item Value Reference Range Interpretation Comments Monocytes (test code = Monocytes) 12.9 2.0-12.0 H [facility] HospitalJsbimgaABIUBDVZTJ1365-11-16 09:04:00 Test Item Value Reference Range Interpretation Comments Lymphocytes (test code = Lymphocytes) 29.9 20.0-40.0 N [facility] HospitalUcavcmyPMCRSVJSBD2010-87-71 09:04:00 Test Item Value Reference Range Interpretation Comments Basophils (test code = 0.3 See_Comment N [Aut omated message] The Basophils) system which ge nerated this result tra nsmitted reference range : <=1.0. The reference r jessika was not used to int erpret this result as normal/abnormal . [facility] HospitalFtrmlzhHYIKALFOZP6643-26-45 09:04:00 Test Item Value Reference Range Interpretation Comments Basophils # (test code 0.0 See_Comment N [Aut omated message] The = Basophils #) system which generated this result tra nsmitted reference range : <=0.2. The reference r jessika was not used to int erpret this result as normal/abnormal . [facility] HospitalHgrvovjEXCQDCBRLY0339-74-34 09:04:00 Test Item Value Reference Range Interpretation Comments Segs-Bands # (test code = Segs-Bands #) 3.8 1.5-8.1 N [facility] HospitalQlxbmbcYKYGHUGEQC3334-90-11 09:04:00 Test Item Value Reference Range Interpretation Comments Hct (test code = Hct) 43.5 42.0-54.0 N [facility] HospitalUaweuouLLEQWZXTKV6750-22-13 09:04:00 Test Item Value Reference Range Interpretation Comments MCV (test code = MCV) 99.4 80.0-94.0 H [facility] HospitalXfgbuflXPFXOFLTPV7699-37-31 09:04:00 Test Item Value Reference Range Interpretation Comments Hgb (test code = Hgb) 14.8 14.0-18.0 N [facility] HospitalJjgtpcwYEMMANYFMH7531-44-55 09:04:00 Test Item Value Reference Range Interpretation Comments RBC (test code = RBC) 4.37 4.70-6.10 L [facility] HospitalEjucdyyZSRUOXUGUD2766-02-52 09:04:00 Test Item Value Reference Range Interpretation Comments WBC (test code = WBC) 6.9 3.7-10.4 N [facility] HospitalIakzaecQQSJJIYONZ3633-01-72 09:04:00 Test Item Value Reference Range Interpretation Comments Platelet (test code = Platelet) 178 133-450 N [facility] HospitalLtzzgszVTOBIVSWOH7144-43-29 09:04:00 Test Item Value Reference Range Interpretation Comments MCHC (test code = MCHC) 34.2 32.0-36.0 N [facility] HospitalXwoxwivJUHBMPPMSC8535-69-59 09:04:00 Test Item Value Reference Range Interpretation Comments MPV (test code = MPV) 9.1 7.4-10.4 N [facility] HospitalUoifbdmJBEHWKZDSU6450-44-95 09:04:00 Test Item Value Reference Range Interpretation Comments RDW (test code = RDW) 13.9 11.5-14.5 N [facility] HospitalTrngxtkPCMHYQSCJK9974-92-38 09:04:00 Test Item Value Reference Range Interpretation Comments MCH (test code = MCH) 33.9 pg 27.0-31.0 H [facility] CenterHhmrjghQDIZOQMYI5028-03-51 09:04:00 Test Item Value Reference Range Interpretation Comments Glucose Lvl (test code = Glucose Lvl) 95 70-99 N [facility] CenterQcotgygFAICRVFZS7819-23-84 09:04:00 Test Item Value Reference Range Interpretation Comments BUN (test code = BUN) 9 7-22 N [facility] CenterKuejkwfWVOBBUXMM4259-96-13 09:04:00 Test Item Value Reference Range Interpretation Comments Creatinine Lvl (test code = Creatinine 0.6 0.5-1.4 N Lvl) [facility] CenterViimvaoBYHMXFQPC3339-74-76 09:04:00 Test Item Value Reference Range Interpretation Comments Sodium Lvl (test code = Sodium Lvl) 141 135-145 N [facility] CenterZvaahmdILBLJSDLW5494-86-54 09:04:00 Test Item Value Reference Range Interpretation Comments Potassium Lvl (test code = Potassium 4.1 3.5-5.1 N Lvl) [facility] CenterHredsneZKIDLYCRU7635-40-24 09:04:00 Test Item Value Reference Range Interpretation Comments Chloride Lvl (test code = Chloride Lvl) 107 95-109 N [facility] CenterFjjzwwhDZTSOXXTJ1154-33-30 09:04:00 Test Item Value Reference Range Interpretation Comments CO2 (test code = CO2) 25 24-32 N [facility] CenterIvrgwyaMFBARIQBQ7395-73-68 09:04:00 Test Item Value Reference Range Interpretation Comments Calcium Lvl (test code = Calcium Lvl) 9.0 8.5-10.5 N [facility] CenterSwnnzrcTYSIHSPKH0109-17-39 09:04:00 Test Item Value Reference Range Interpretation Comments AGAP (test code = AGAP) 13.1 10.0-20.0 N [facility] HospitalLedvgkaQDUIZSTXHN7193-65-20 09:04:00 Test Item Value Reference Range Interpretation Comments Macrocyte (test code = 1+ *ABN*(09/18/2011 A Macrocyte) 04:04:00) [facility] HospitalYbzfaloZRMNIULQET3943-33-82 09:04:00 Test Item Value Reference Range Interpretation Comments Monocytes # (test code 0.9 See_Comment H [Aut omated message] The = Monocytes #) system which generated this result tra nsmitted reference range : <=0.8. The reference r jessika was not used to int erpret this result as normal/abnormal . [facility] HospitalFykcxsmXUFCCYTBNX2606-11-21 09:04:00 Test Item Value Reference Range Interpretation Comments Lymphocytes # (test code = Lymphocytes 2.1 1.0-5.5 N #) [facility] HospitalUvzinosXFXHLVQSAH8821-32-50 09:04:00 Test Item Value Reference Range Interpretation Comments Segs (test code = Segs) 54.6 45.0-75.0 N [facility] HospitalJnxrxttLOCKLAAZUB1198-90-21 09:04:00 Test Item Value Reference Range Interpretation Comments Eosinophils # (test code 0.2 See_Comment N [A utomated message] The = Eosinophils #) system whic h generated this result tra nsmitted reference range : <=0.5. The reference r jessika was not used to int erpret this result as normal/abnormal . [facility] HospitalSxhpegrMSKKLWJHUV9209-76-38 09:04:00 Test Item Value Reference Range Interpretation Comments Eosinophils (test code = 2.3 See_Comment N [A utomated message] The Eosinophils) system which ge nerated this result tra nsmitted reference range : <=4.0. The reference r jessika was not used to int erpret this result as normal/abnormal . [facility] HospitalMsosskxYYDRGYIVMT5584-48-08 09:04:00 Test Item Value Reference Range Interpretation Comments Monocytes (test code = Monocytes) 12.9 2.0-12.0 H [facility] HospitalCkhuuxaXTKUCCMRBU4276-92-28 09:04:00 Test Item Value Reference Range Interpretation Comments Lymphocytes (test code = Lymphocytes) 29.9 20.0-40.0 N [facility] HospitalEyzavawTIKEHQKFQZ7841-97-71 09:04:00 Test Item Value Reference Range Interpretation Comments Basophils (test code = 0.3 See_Comment N [Aut omated message] The Basophils) system which ge nerated this result tra nsmitted reference range : <=1.0. The reference r jessika was not used to int erpret this result as normal/abnormal . [facility] HospitalIohimdxFZIIVKLYDM8440-03-08 09:04:00 Test Item Value Reference Range Interpretation Comments Basophils # (test code 0.0 See_Comment N [Aut omated message] The = Basophils #) system which generated this result tra nsmitted reference range : <=0.2. The reference r jessika was not used to int erpret this result as normal/abnormal . [facility] HospitalCthnlarQBVYDPLKOS8479-92-26 09:04:00 Test Item Value Reference Range Interpretation Comments Segs-Bands # (test code = Segs-Bands #) 3.8 1.5-8.1 N [facility] HospitalMldezwiXVDUDBBULN4404-86-30 09:04:00 Test Item Value Reference Range Interpretation Comments Hct (test code = Hct) 43.5 42.0-54.0 N [facility] HospitalCqsaruhJNYLMPOKFV1299-04-19 09:04:00 Test Item Value Reference Range Interpretation Comments MCV (test code = MCV) 99.4 80.0-94.0 H [facility] HospitalOpyapunCRRPBSMFNI5558-48-45 09:04:00 Test Item Value Reference Range Interpretation Comments Hgb (test code = Hgb) 14.8 14.0-18.0 N [facility] HospitalWntrjovDTXPGKFKXI5253-33-25 09:04:00 Test Item Value Reference Range Interpretation Comments RBC (test code = RBC) 4.37 4.70-6.10 L [facility] HospitalSsvlnehNNHIALZOGE2128-77-66 09:04:00 Test Item Value Reference Range Interpretation Comments WBC (test code = WBC) 6.9 3.7-10.4 N [facility] HospitalJhroadeYVFZDARERY7520-84-35 09:04:00 Test Item Value Reference Range Interpretation Comments Platelet (test code = Platelet) 178 133-450 N [facility] HospitalSbhztghEATZJXXSQH0263-35-81 09:04:00 Test Item Value Reference Range Interpretation Comments MCHC (test code = MCHC) 34.2 32.0-36.0 N [facility] HospitalWsuhcklBCMHDAXYHK6272-40-50 09:04:00 Test Item Value Reference Range Interpretation Comments MPV (test code = MPV) 9.1 7.4-10.4 N [facility] HospitalUivbwdpIKJHZYMTZO1093-87-87 09:04:00 Test Item Value Reference Range Interpretation Comments RDW (test code = RDW) 13.9 11.5-14.5 N [facility] HospitalGgzyovxDUTKLDNMEY3479-88-02 09:04:00 Test Item Value Reference Range Interpretation Comments MCH (test code = MCH) 33.9 pg 27.0-31.0 H [facility] CenterJjwvdzrCYCMMYSFH0601-43-07 09:04:00 Test Item Value Reference Range Interpretation Comments Glucose Lvl (test code = Glucose Lvl) 95 70-99 N [facility] CenterWowksomVVOMXFDGI6555-15-89 09:04:00 Test Item Value Reference Range Interpretation Comments BUN (test code = BUN) 9 7-22 N [facility] CenterIzhmnpqUWZVKJYGZ7574-00-73 09:04:00 Test Item Value Reference Range Interpretation Comments Creatinine Lvl (test code = Creatinine 0.6 0.5-1.4 N Lvl) [facility] CenterFpkhphlTBHYGGDZL2412-28-60 09:04:00 Test Item Value Reference Range Interpretation Comments Sodium Lvl (test code = Sodium Lvl) 141 135-145 N [facility] CenterEvhhokzFXBVUGSBN7283-69-60 09:04:00 Test Item Value Reference Range Interpretation Comments Potassium Lvl (test code = Potassium 4.1 3.5-5.1 N Lvl) [facility] CenterTsuylqwFBPGPTKOD6766-84-37 09:04:00 Test Item Value Reference Range Interpretation Comments Chloride Lvl (test code = Chloride Lvl) 107 95-109 N [facility] CenterFcnyiywOOWHZJGZN9692-20-33 09:04:00 Test Item Value Reference Range Interpretation Comments CO2 (test code = CO2) 25 24-[address] [facility] CenterDrxtsxrVjidwvjcshex3526-82-47 14:00:00 Test Item Value Reference Range Interpretation Comments Culture: Urine (test code = Culture: Urine) [facility] Center[id number] 14:00:00 Test Item Value Reference Range Interpretation Comments Culture: Urine (test code = Culture: Urine) [facility][id number] 14:00:00 Test Item Value Reference Range Interpretation Comments Culture: Urine (test code = Culture: Urine) [facility] Center[id number] 14:00:00 Test Item Value Reference Range Interpretation Comments Culture: Urine (test code = Culture: Urine) [facility] CenterYadjtxsFwmqmzmvzxur3854-30-63 14:00:00 Test Item Value Reference Range Interpretation Comments Culture: Urine (test code = Culture: Urine) [facility] Sou[id number] 13:25:00 Test Item Value Reference Range Interpretation Comments UA Urobilinogen (test code *NA*(09/16/2011 0.1-1.0 = UA Urobilinogen) 08:25:00) [facility] SouthKheqtxbFOGXSAXMUP3279-66-36 13:25:00 Test Item Value Reference Range Interpretation Comments UA WBC (test code = no gt See_Comment N [Automa lorie message] The UA WBC) system which ge nerated this result transmit lorie reference range : <=5. The reference range was not used to interpr et this result as asher l/abnormal. [facility] SouthIykkswgLTILPSEUCO9757-86-14 13:25:00 Test Item Value Reference Range Interpretation Comments UA RBC (test code = 1 See_Comment N [Automa lorie message] The UA RBC) system which ge nerated this result transmit lorie reference range : <=2. The reference range was not used to interpr et this result as asher l/abnormal. [facility] SouthTkahplsKVOEACBHVE4139-05-99 13:25:00 Test Item Value Reference Range Interpretation Comments UA Mucus (test code = Few /LPF UA Mucus) *NA*(09/16/2011 08:25:00) [facility] SouthBylgznlRHSOMCOOPH1362-78-00 13:25:00 Test Item Value Reference Range Interpretation Comments UA Ketones (test code Negative mg/dL = UA Ketones) *NA*(09/16/2011 08:25:00) [facility] SouthZngknbcXTHRWQKOCF7613-94-63 13:25:00 Test Item Value Reference Range Interpretation Comments UA Bili (test code = Negative *NA*(09/16/2011 UA Bili) 08:25:00) [facility] Houst[id number] 13:25:00 Test Item Value Reference Range Interpretation Comments UA Blood (test code = Negative (09/16/2011 N UA Blood) 08:25:00) [facility] Sou[id number] 13:25:00 Test Item Value Reference Range Interpretation Comments UA Nitrite (test code Negative (09/16/2011 N = UA Nitrite) 08:25:00) [facility] Houst[id number] 13:25:00 Test Item Value Reference Range Interpretation Comments UA Leuk Est (test Negative (09/16/2011 N code = UA Leuk Est) 08:25:00) [facility] HoustonAkdtlmkDIRAGQTGWT2801-21-16 13:25:00 Test Item Value Reference Range Interpretation Comments UA Sq Epi (test code Occasional /LPF = UA Sq Epi) *NA*(09/16/2011 08:25:00) [facility] HoustonRrwajrzFKMEBBAYON5612-31-12 13:25:00 Test Item Value Reference Range Interpretation Comments UA Glucose (test code Negative mg/dL = UA Glucose) *NA*(09/16/2011 08:25:00) [facility] HoustonDcgpsknEYQITHRRLK5597-77-41 13:25:00 Test Item Value Reference Range Interpretation Comments UA Protein (test code Negative mg/dL N = UA Protein) (09/16/2011 08:25:00) [facility] SouthGxgcvsxEKJSYYFLXO5902-59-69 13:25:00 Test Item Value Reference Range Interpretation Comments UA Color (test code = Yellow *NA*(09/16/2011 UA Color) 08:25:00) [facility] SouthYdhqatnGULTBOHWNQ5003-88-89 13:25:00 Test Item Value Reference Range Interpretation Comments UA pH (test code = UA pH) 5.5 5.0-8.0 N [facility] SouthTqnmutuVDJBHJZIES6573-52-58 13:25:00 Test Item Value Reference Range Interpretation Comments UA Spec Grav (test code = UA Spec Grav) 1.017 N [facility] SouthDyzmxcvZTNEPQZATS1139-49-67 13:25:00 Test Item Value Reference Range Interpretation Comments UA Turbidity (test code = Clear (09/16/2011 N UA Turbidity) 08:25:00) [facility] SouthAewijgfTIZIDRFLKQ4648-92-34 13:25:00 Test Item Value Reference Range Interpretation Comments UA Urobilinogen (test code *NA*(09/16/2011 0.1-1.0 = UA Urobilinogen) 08:25:00) [facility] SouthVswyesvGMQKPPNJXU2971-59-86 13:25:00 Test Item Value Reference Range Interpretation Comments UA WBC (test code = no gt See_Comment N [Automa lorie message] The UA WBC) system which ge nerated this result transmit lorie reference range : <=5. The reference range was not used to interpr et this result as asher l/abnormal. [facility] SouthVdhbwchCJSWXRMTCC5468-39-85 13:25:00 Test Item Value Reference Range Interpretation Comments UA RBC (test code = 1 See_Comment N [Automa lorie message] The UA RBC) system which ge nerated this result transmit lorie reference range : <=2. The reference range was not used to interpr et this result as asher l/abnormal. [facility] HoustonOkmbnqkUCHLVAIMKA1447-58-89 13:25:00 Test Item Value Reference Range Interpretation Comments UA Mucus (test code = Few /LPF UA Mucus) *NA*(09/16/2011 08:25:00) [facility] SouthUehzrzzHJEJMTVUTW7374-88-37 13:25:00 Test Item Value Reference Range Interpretation Comments UA Ketones (test code Negative mg/dL = UA Ketones) *NA*(09/16/2011 08:25:00) [facility] SouthLizylwpQCDLGREQLN8390-21-24 13:25:00 Test Item Value Reference Range Interpretation Comments UA Bili (test code = Negative *NA*(09/16/2011 UA Bili) 08:25:00) [facility] SouthDsonwxsWWMQQAHSMN5537-99-16 13:25:00 Test Item Value Reference Range Interpretation Comments UA Blood (test code = Negative (09/16/2011 N UA Blood) 08:25:00) [facility] SouthPjpasmxFJUIUYIBLK8781-97-66 13:25:00 Test Item Value Reference Range Interpretation Comments UA Nitrite (test code Negative (09/16/2011 N = UA Nitrite) 08:25:00) [facility] SouthXtlpnanRQEQMYYZKB5576-73-00 13:25:00 Test Item Value Reference Range Interpretation Comments UA Leuk Est (test Negative (09/16/2011 N code = UA Leuk Est) 08:25:00) [facility] SouthCdtqydtKVHAXSKYZJ7700-69-69 13:25:00 Test Item Value Reference Range Interpretation Comments UA Sq Epi (test code Occasional /LPF = UA Sq Epi) *NA*(09/16/2011 08:25:00) [facility] SouthQvqplnxHFQJFIMYUE9393-60-00 13:25:00 Test Item Value Reference Range Interpretation Comments UA Glucose (test code Negative mg/dL = UA Glucose) *NA*(09/16/2011 08:25:00) [facility] SouthCmxdrxuCYWOIMXIKB2930-14-55 13:25:00 Test Item Value Reference Range Interpretation Comments UA Protein (test code Negative mg/dL N = UA Protein) (09/16/2011 08:25:00) [facility] SouthCcchlggSOVXLETSPD8515-72-21 13:25:00 Test Item Value Reference Range Interpretation Comments UA Color (test code = Yellow *NA*(09/16/2011 UA Color) 08:25:00) [facility] SouthJptxrjtUKSXONRAED8853-76-01 13:25:00 Test Item Value Reference Range Interpretation Comments UA pH (test code = UA pH) 5.5 5.0-8.0 N [facility] HoustonJwognbdNGVATPGPDI6075-37-64 13:25:00 Test Item Value Reference Range Interpretation Comments UA Spec Grav (test code = UA Spec Grav) 1.017 N [facility] HoustonYklunrlSWJAIQGXXW5059-55-32 13:25:00 Test Item Value Reference Range Interpretation Comments UA Turbidity (test code = Clear (09/16/2011 N UA Turbidity) 08:25:00) [facility] SouthQafjqnqEBVTWNJACV9836-23-16 13:25:00 Test Item Value Reference Range Interpretation Comments UA Urobilinogen (test code *NA*(09/16/2011 0.1-1.0 = UA Urobilinogen) 08:25:00) [facility] SouthSqzuoqtWHHHMGLOLN4068-48-30 13:25:00 Test Item Value Reference Range Interpretation Comments UA WBC (test code = no gt See_Comment N [Automa lorie message] The UA WBC) system which ge nerated this result transmit lorie reference range : <=5. The reference range was not used to interpr et this result as asher l/abnormal. [facility] SouthBhkvuyyCWLAYIJNJK8225-40-42 13:25:00 Test Item Value Reference Range Interpretation Comments UA RBC (test code = 1 See_Comment N [Automa lorie message] The UA RBC) system which ge nerated this result transmit lorie reference range : <=2. The reference range was not used to interpr et this result as asher l/abnormal. [facility] SouthJiaqtodZHNTGIKUHX6838-95-96 13:25:00 Test Item Value Reference Range Interpretation Comments UA Mucus (test code = Few /LPF UA Mucus) *NA*(09/16/2011 08:25:00) [facility] SouthXdzmobsLZJPSBUYJG4405-30-50 13:25:00 Test Item Value Reference Range Interpretation Comments UA Ketones (test code Negative mg/dL = UA Ketones) *NA*(09/16/2011 08:25:00) [facility] SouthBmtkoanUBDCUJXOER3306-88-09 13:25:00 Test Item Value Reference Range Interpretation Comments UA Bili (test code = Negative *NA*(09/16/2011 UA Bili) 08:25:00) [facility] HoustonWsmqaffSBKUDMTKRT7182-46-14 13:25:00 Test Item Value Reference Range Interpretation Comments UA Blood (test code = Negative (09/16/2011 N UA Blood) 08:25:00) [facility] Sou[id number] 13:25:00 Test Item Value Reference Range Interpretation Comments UA Nitrite (test code Negative (09/16/2011 N = UA Nitrite) 08:25:00) [facility] SouthUyiehxmRHGZNEEZLE9259-84-57 13:25:00 Test Item Value Reference Range Interpretation Comments UA Leuk Est (test Negative (09/16/2011 N code = UA Leuk Est) 08:25:00) [facility] SouthKilgcnpPMIPGAWZLO2660-11-82 13:25:00 Test Item Value Reference Range Interpretation Comments UA Sq Epi (test code Occasional /LPF = UA Sq Epi) *NA*(09/16/2011 08:25:00) [facility] SouthV[id number] 13:25:00 Test Item Value Reference Range Interpretation Comments UA Glucose (test code Negative mg/dL = UA Glucose) *NA*(09/16/2011 08:25:00) [facility] SouthYlfzcrmXBEYFJOMYM2385-19-41 13:25:00 Test Item Value Reference Range Interpretation Comments UA Protein (test code Negative mg/dL N = UA Protein) (09/16/2011 08:25:00) [facility] SouthLqsiagxLLVMTOXNHQ5329-70-26 13:25:00 Test Item Value Reference Range Interpretation Comments UA Color (test code = Yellow *NA*(09/16/2011 UA Color) 08:25:00) [facility] SouthJqwooyxGNCCIUBVJZ1716-57-92 13:25:00 Test Item Value Reference Range Interpretation Comments UA pH (test code = UA pH) 5.5 5.0-8.0 N [facility] SouthDbnmuthFFTFPQZETL9672-72-61 13:25:00 Test Item Value Reference Range Interpretation Comments UA Spec Grav (test code = UA Spec Grav) 1.017 N [facility] SouthArlhhlgKHWNIVNRPU7818-89-96 13:25:00 Test Item Value Reference Range Interpretation Comments UA Turbidity (test code = Clear (09/16/2011 N UA Turbidity) 08:25:00) [facility] SouthYdcktjhOQYZUJUWMI3137-66-43 13:25:00 Test Item Value Reference Range Interpretation Comments UA Urobilinogen (test code *NA*(09/16/2011 0.1-1.0 = UA Urobilinogen) 08:25:00) [facility] HoustonNusohkeULUFHHCDWA3779-96-84 13:25:00 Test Item Value Reference Range Interpretation Comments UA WBC (test code = no gt See_Comment N [Automa lorie message] The UA WBC) system which ge nerated this result transmit lorie reference range : <=5. The reference range was not used to interpr et this result as asher l/abnormal. [facility] Houst[id number] 13:25:00 Test Item Value Reference Range Interpretation Comments UA RBC (test code = 1 See_Comment N [Automa lorie message] The UA RBC) system which ge nerated this result transmit lorie reference range : <=2. The reference range was not used to interpr et this result as asher l/abnormal. [facility] SouthUctiopePJQELYTCQU5580-65-67 13:25:00 Test Item Value Reference Range Interpretation Comments UA Mucus (test code = Few /LPF UA Mucus) *NA*(09/16/2011 08:25:00) [facility] SouthGdnzchgYJBGIZCLZU4423-25-20 13:25:00 Test Item Value Reference Range Interpretation Comments UA Ketones (test code Negative mg/dL = UA Ketones) *NA*(09/16/2011 08:25:00) [facility] SouthZytuyniIZBSTJFDNN2162-54-67 13:25:00 Test Item Value Reference Range Interpretation Comments UA Bili (test code = Negative *NA*(09/16/2011 UA Bili) 08:25:00) [facility] SouthXwlxzknJFOZPTZXHY0224-49-43 13:25:00 Test Item Value Reference Range Interpretation Comments UA Blood (test code = Negative (09/16/2011 N UA Blood) 08:25:00) [facility] HoustonWzbgeniEMZGEXXJMT7731-07-16 13:25:00 Test Item Value Reference Range Interpretation Comments UA Nitrite (test code Negative (09/16/2011 N = UA Nitrite) 08:25:00) [facility] SouthVduotyzNJDJNPKLBY2758-19-96 13:25:00 Test Item Value Reference Range Interpretation Comments UA Leuk Est (test Negative (09/16/2011 N code = UA Leuk Est) 08:25:00) [facility] Houst[id number] 13:25:00 Test Item Value Reference Range Interpretation Comments UA Sq Epi (test code Occasional /LPF = UA Sq Epi) *NA*(09/16/2011 08:25:00) [facility] SouthPwlwnzaAFHSISTLLN0447-21-91 13:25:00 Test Item Value Reference Range Interpretation Comments UA Glucose (test code Negative mg/dL = UA Glucose) *NA*(09/16/2011 08:25:00) [facility] SouthZiyyjdyBWDEQKRDJO6413-16-43 13:25:00 Test Item Value Reference Range Interpretation Comments UA Protein (test code Negative mg/dL N = UA Protein) (09/16/2011 08:25:00) [facility] SouthZtdzewxORCLXKDVSK1423-43-61 13:25:00 Test Item Value Reference Range Interpretation Comments UA Color (test code = Yellow *NA*(09/16/2011 UA Color) 08:25:00) [facility] SouthTbmyssuILONXIFBTD2974-86-91 13:25:00 Test Item Value Reference Range Interpretation Comments UA pH (test code = UA pH) 5.5 5.0-8.0 N [facility] SouthAllgdsbFNRQNVRRDX9625-50-79 13:25:00 Test Item Value Reference Range Interpretation Comments UA Spec Grav (test code = UA Spec Grav) 1.017 N [facility] SouthUfptqlmKLKHYQMXGP0678-06-73 13:25:00 Test Item Value Reference Range Interpretation Comments UA Turbidity (test code = Clear (09/16/2011 N UA Turbidity) 08:25:00) [facility] SouthPrsitvvSBRHTSEJLH7740-63-81 13:25:00 Test Item Value Reference Range Interpretation Comments UA Urobilinogen (test code *NA*(09/16/2011 0.1-1.0 = UA Urobilinogen) 08:25:00) [facility] SouthN[id number] 13:25:00 Test Item Value Reference Range Interpretation Comments UA WBC (test code = no gt See_Comment N [Automa lorie message] The UA WBC) system which ge nerated this result transmit lorie reference range : <=5. The reference range was not used to interpr et this result as asher l/abnormal. [facility] SouthAbeahxgASITNJHYEC2046-35-91 13:25:00 Test Item Value Reference Range Interpretation Comments UA RBC (test code = 1 See_Comment N [Automa lorie message] The UA RBC) system which ge nerated this result transmit lorie reference range : <=2. The reference range was not used to interpr et this result as asher l/abnormal. [facility] SouthDjuychhXBJKPZAHYH6824-13-50 13:25:00 Test Item Value Reference Range Interpretation Comments UA Mucus (test code = Few /LPF UA Mucus) *NA*(09/16/2011 08:25:00) [facility] SouthKkfbyrnBUUDSTBEFO4915-90-85 13:25:00 Test Item Value Reference Range Interpretation Comments UA Ketones (test code Negative mg/dL = UA Ketones) *NA*(09/16/2011 08:25:00) [facility] SouthNxgetgiROSYYZXNDO1672-50-70 13:25:00 Test Item Value Reference Range Interpretation Comments UA Bili (test code = Negative *NA*(09/16/2011 UA Bili) 08:25:00) [facility] SouthOeodeijTVGOYGPNGB9881-65-60 13:25:00 Test Item Value Reference Range Interpretation Comments UA Blood (test code = Negative (09/16/2011 N UA Blood) 08:25:00) [facility] SouthXocluflRZLWQPNWXD9398-55-22 13:25:00 Test Item Value Reference Range Interpretation Comments UA Nitrite (test code Negative (09/16/2011 N = UA Nitrite) 08:25:00) [facility] SouthUufabllIFPQINHQDN4840-92-31 13:25:00 Test Item Value Reference Range Interpretation Comments UA Leuk Est (test Negative (09/16/2011 N code = UA Leuk Est) 08:25:00) [facility] SouthLrllyauDJHWJKNKWZ8370-20-48 13:25:00 Test Item Value Reference Range Interpretation Comments UA Sq Epi (test code Occasional /LPF = UA Sq Epi) *NA*(09/16/2011 08:25:00) [facility] SouthDmwahasYAXTXFIQZF2326-99-60 13:25:00 Test Item Value Reference Range Interpretation Comments UA Glucose (test code Negative mg/dL = UA Glucose) *NA*(09/16/2011 08:25:00) [facility] SouthGrfecibCASCWNPSRE0450-18-67 13:25:00 Test Item Value Reference Range Interpretation Comments UA Protein (test code Negative mg/dL N = UA Protein) (09/16/2011 08:25:00) [facility] HoustonJehgtgsBUKSCNCXTN1660-62-29 13:25:00 Test Item Value Reference Range Interpretation Comments UA Color (test code = Yellow *NA*(09/16/2011 UA Color) 08:25:00) [facility] SouthPzqmfgoEGEMHOJJJZ1259-00-88 13:25:00 Test Item Value Reference Range Interpretation Comments UA pH (test code = UA pH) 5.5 5.0-8.0 N [facility] HoustonQpvqiwtCFPWXVXPBZ8122-45-36 13:25:00 Test Item Value Reference Range Interpretation Comments UA Spec Grav (test code = UA Spec Grav) 1.017 N [facility] HoustonIhgsyqpCHUTOWQEWD2748-79-82 13:25:00 Test Item Value Reference Range Interpretation Comments UA Turbidity (test code = Clear (09/16/2011 N UA Turbidity) 08:25:00) [facility] SouthQcswytqVZNIFXGSYE9479-90-92 08:42:00 Test Item Value Reference Range Interpretation Comments UA Mucus (test code = Few /LPF UA Mucus) *NA*(09/15/2011 03:42:00) [facility] SouthKggudkjPGXUGDOLKD9827-74-36 08:42:00 Test Item Value Reference Range Interpretation Comments UA RBC (test code = 1 See_Comment N [Automa lorie message] The UA RBC) system which ge nerated this result transmit lorie reference range : <=2. The reference range was not used to interpr et this result as asher l/abnormal. [facility] SouthTgaoghiTOIWOAAIPG0431-71-15 08:42:00 Test Item Value Reference Range Interpretation Comments UA Blood (test code = Negative (09/15/2011 N UA Blood) 03:42:00) [facility] HoustonYcdljwzVJIVACKWTU3708-20-59 08:42:00 Test Item Value Reference Range Interpretation Comments UA Nitrite (test code Negative (09/15/2011 N = UA Nitrite) 03:42:00) [facility] HoustonNxfffuyKMHZFFZDFE2875-53-18 08:42:00 Test Item Value Reference Range Interpretation Comments UA Leuk Est (test Negative (09/15/2011 N code = UA Leuk Est) 03:42:00) [facility] HoustonWxtjeadANZHGJEJTY5400-59-36 08:42:00 Test Item Value Reference Range Interpretation Comments UA pH (test code = UA pH) 5.5 5.0-8.0 N [facility] SouthHxsjquuJGUBGHQKHY8120-26-41 08:42:00 Test Item Value Reference Range Interpretation Comments UA Protein (test code Negative mg/dL N = UA Protein) (09/15/2011 03:42:00) [facility] SouthAwyhtgjZLZUNIDPHZ9870-67-87 08:42:00 Test Item Value Reference Range Interpretation Comments UA Glucose (test code Negative mg/dL = UA Glucose) *NA*(09/15/2011 03:42:00) [facility] SouthXolkgbtXRSVRHPFSJ6435-51-08 08:42:00 Test Item Value Reference Range Interpretation Comments UA Ketones (test code Negative mg/dL = UA Ketones) *NA*(09/15/2011 03:42:00) [facility] SouthHeikgkwDRKBVHCEFX4866-79-51 08:42:00 Test Item Value Reference Range Interpretation Comments UA Bili (test code = Negative *NA*(09/15/2011 UA Bili) 03:42:00) [facility] SouthPqojoudBALNNNIYQD4592-71-59 08:42:00 Test Item Value Reference Range Interpretation Comments UA Color (test code = Yellow *NA*(09/15/2011 UA Color) 03:42:00) [facility] SouthUtuetzzWGFCXIDPQS3569-68-99 08:42:00 Test Item Value Reference Range Interpretation Comments UA Turbidity (test code Slight A = UA Turbidity) *ABN*(09/15/2011 03:42:00) [facility] SouthHgwkffyJEXJQXQQDV2971-54-61 08:42:00 Test Item Value Reference Range Interpretation Comments UA Spec Grav (test code = UA Spec Grav) 1.012 N [facility] HoustonVjliogxKHBEFAYDPM2180-25-61 08:42:00 Test Item Value Reference Range Interpretation Comments UA Sq Epi (test code = UA Sq Epi) None Seen [facility] SouthSjpvnoeCZVLXETJHX3465-36-59 08:42:00 Test Item Value Reference Range Interpretation Comments UA Urobilinogen (test code *NA*(09/15/2011 0.1-1.0 = UA Urobilinogen) 03:42:00) [facility]QdhbfzmXdsakhyuehzy3486-18-67 08:42:00 Test Item Value Reference Range Interpretation Comments Culture: Urine (test code = Culture: Urine) [facility] HoustonAlwwsigKXNGJRCZQH4956-75-76 08:42:00 Test Item Value Reference Range Interpretation Comments UA Mucus (test code = Few /LPF UA Mucus) *NA*(09/15/2011 03:42:00) [facility] SouthYlnjswrPVVYLDETNN7236-20-66 08:42:00 Test Item Value Reference Range Interpretation Comments UA RBC (test code = 1 See_Comment N [Automa lorie message] The UA RBC) system which ge nerated this result transmit lorie reference range : <=2. The reference range was not used to interpr et this result as asher l/abnormal. [facility] SouthPhwhpepVDVFJQPTTZ3049-03-13 08:42:00 Test Item Value Reference Range Interpretation Comments UA Blood (test code = Negative (09/15/2011 N UA Blood) 03:42:00) [facility] SouthIjntphaONKNTRWCXU3267-06-64 08:42:00 Test Item Value Reference Range Interpretation Comments UA Nitrite (test code Negative (09/15/2011 N = UA Nitrite) 03:42:00) [facility] SouthRmkmzyuVVXZVKZGNP0542-82-50 08:42:00 Test Item Value Reference Range Interpretation Comments UA Leuk Est (test Negative (09/15/2011 N code = UA Leuk Est) 03:42:00) [facility] SouthBhzqbaoKUOFFUPOAE1000-76-33 08:42:00 Test Item Value Reference Range Interpretation Comments UA pH (test code = UA pH) 5.5 5.0-8.0 N [facility] SouthHmoxhzjFEQBAFLLQU6092-39-61 08:42:00 Test Item Value Reference Range Interpretation Comments UA Protein (test code Negative mg/dL N = UA Protein) (09/15/2011 03:42:00) [facility] SouthFxysbhxNEGOOHTXWK1460-87-10 08:42:00 Test Item Value Reference Range Interpretation Comments UA Glucose (test code Negative mg/dL = UA Glucose) *NA*(09/15/2011 03:42:00) [facility] SouthHoosqecMOXRJUOVRV5793-14-65 08:42:00 Test Item Value Reference Range Interpretation Comments UA Ketones (test code Negative mg/dL = UA Ketones) *NA*(09/15/2011 03:42:00) [facility] SouthAwtnwzvPTXDDMELPD6621-43-64 08:42:00 Test Item Value Reference Range Interpretation Comments UA Bili (test code = Negative *NA*(09/15/2011 UA Bili) 03:42:00) [facility] HoustonNeuntukTQRPKYKVOS7015-64-69 08:42:00 Test Item Value Reference Range Interpretation Comments UA Color (test code = Yellow *NA*(09/15/2011 UA Color) 03:42:00) [facility] HoustonIwdavfqVTAALHWEFV5592-14-40 08:42:00 Test Item Value Reference Range Interpretation Comments UA Turbidity (test code Slight A = UA Turbidity) *ABN*(09/15/2011 03:42:00) [facility] SouthHftviggDKIPZTWWUW5846-73-42 08:42:00 Test Item Value Reference Range Interpretation Comments UA Spec Grav (test code = UA Spec Grav) 1.012 N [facility] HoustonPvhxnpqOWLPJTGKSJ3596-67-82 08:42:00 Test Item Value Reference Range Interpretation Comments UA Sq Epi (test code = UA Sq Epi) None Seen [facility] SouthTofipayKSATZJPUGR1955-90-50 08:42:00 Test Item Value Reference Range Interpretation Comments UA Urobilinogen (test code *NA*(09/15/2011 0.1-1.0 = UA Urobilinogen) 03:42:00) [facility]NowynfhVymrzxkewioe9732-51-94 08:42:00 Test Item Value Reference Range Interpretation Comments Culture: Urine (test code = Culture: Urine) [facility] HoustonXahxnlzZDVRPANOCC9959-03-76 08:42:00 Test Item Value Reference Range Interpretation Comments UA Mucus (test code = Few /LPF UA Mucus) *NA*(09/15/2011 03:42:00) [facility] HoustonCoalahuFOBTKBZSHB7073-52-87 08:42:00 Test Item Value Reference Range Interpretation Comments UA RBC (test code = 1 See_Comment N [Automa lorie message] The UA RBC) system which ge nerated this result transmit lorie reference range : <=2. The reference range was not used to interpr et this result as asher l/abnormal. [facility] CenterWpudxvgJZNTMBMHRG3692-50-81 08:42:00 Test Item Value Reference Range Interpretation Comments UA Blood (test code = Negative (09/15/2011 N UA Blood) 03:42:00) [facility] HoustonIjmsqpgLVADYFJXLT7020-13-38 08:42:00 Test Item Value Reference Range Interpretation Comments UA Nitrite (test code Negative (09/15/2011 N = UA Nitrite) 03:42:00) [facility] SouthQfhssblBWBBBLYKGE0128-50-68 08:42:00 Test Item Value Reference Range Interpretation Comments UA Leuk Est (test Negative (09/15/2011 N code = UA Leuk Est) 03:42:00) [facility] SouthOzqcqejDYDFDPOQVV1864-22-12 08:42:00 Test Item Value Reference Range Interpretation Comments UA pH (test code = UA pH) 5.5 5.0-8.0 N [facility] SouthIxigsgkOGOKYDVUCI2203-75-75 08:42:00 Test Item Value Reference Range Interpretation Comments UA Protein (test code Negative mg/dL N = UA Protein) (09/15/2011 03:42:00) [facility] SouthJyqizskNKGKXRZCQZ2140-33-41 08:42:00 Test Item Value Reference Range Interpretation Comments UA Glucose (test code Negative mg/dL = UA Glucose) *NA*(09/15/2011 03:42:00) [facility] SouthMrenthcJXQJKEUCXC4490-00-53 08:42:00 Test Item Value Reference Range Interpretation Comments UA Ketones (test code Negative mg/dL = UA Ketones) *NA*(09/15/2011 03:42:00) [facility] SouthKzavbzyDHRCDWDXZO3021-71-98 08:42:00 Test Item Value Reference Range Interpretation Comments UA Bili (test code = Negative *NA*(09/15/2011 UA Bili) 03:42:00) [facility] SouthUjwcnumGAWKFFUPNZ5850-61-37 08:42:00 Test Item Value Reference Range Interpretation Comments UA Color (test code = Yellow *NA*(09/15/2011 UA Color) 03:42:00) [facility] SouthQlzljnhARVOQCZHEK2721-98-03 08:42:00 Test Item Value Reference Range Interpretation Comments UA Turbidity (test code Slight A = UA Turbidity) *ABN*(09/15/2011 03:42:00) [facility] SouthNhyvummXVQAFVJKGL1319-17-37 08:42:00 Test Item Value Reference Range Interpretation Comments UA Spec Grav (test code = UA Spec Grav) 1.012 N [facility] SouthTkkfyerYFYLCAKMKB0133-28-45 08:42:00 Test Item Value Reference Range Interpretation Comments UA Sq Epi (test code = UA Sq Epi) None Seen [facility] SouthMgffluqWVIZUIDKCQ6437-19-15 08:42:00 Test Item Value Reference Range Interpretation Comments UA Urobilinogen (test code *NA*(09/15/2011 0.1-1.0 = UA Urobilinogen) 03:42:00) [facility] CenterCuqtnpwYlavjmjiykyf9942-32-57 08:42:00 Test Item Value Reference Range Interpretation Comments Culture: Urine (test code = Culture: Urine) [facility] SouthXjjqytqVTCPOMWAAM6126-70-88 08:42:00 Test Item Value Reference Range Interpretation Comments UA Mucus (test code = Few /LPF UA Mucus) *NA*(09/15/2011 03:42:00) [facility] SouthEocvppoRQEBYTEDAJ8772-38-56 08:42:00 Test Item Value Reference Range Interpretation Comments UA RBC (test code = 1 See_Comment N [Automa lorie message] The UA RBC) system which ge nerated this result transmit lorie reference range : <=2. The reference range was not used to interpr et this result as asher l/abnormal. [facility] SouthUrdkhzeVJLBEPMXXS0950-53-87 08:42:00 Test Item Value Reference Range Interpretation Comments UA Blood (test code = Negative (09/15/2011 N UA Blood) 03:42:00) [facility] SouthWiluazbQRWEOSHQNJ7567-77-74 08:42:00 Test Item Value Reference Range Interpretation Comments UA Nitrite (test code Negative (09/15/2011 N = UA Nitrite) 03:42:00) [facility] SouthKoefsjgVPHHSLUWJV3550-87-63 08:42:00 Test Item Value Reference Range Interpretation Comments UA Leuk Est (test Negative (09/15/2011 N code = UA Leuk Est) 03:42:00) [facility] SouthCrhoiwdQGGXKHUNJD4811-24-27 08:42:00 Test Item Value Reference Range Interpretation Comments UA pH (test code = UA pH) 5.5 5.0-8.0 N [facility] SouthKspyhxcTNFYLSHIFN4753-42-68 08:42:00 Test Item Value Reference Range Interpretation Comments UA Protein (test code Negative mg/dL N = UA Protein) (09/15/2011 03:42:00) [facility] SouthFgwhlhkTPEZHXGTZC5970-67-57 08:42:00 Test Item Value Reference Range Interpretation Comments UA Glucose (test code Negative mg/dL = UA Glucose) *NA*(09/15/2011 03:42:00) [facility] SouthZnjgrhtXGKKWZKTFD1551-68-98 08:42:00 Test Item Value Reference Range Interpretation Comments UA Ketones (test code Negative mg/dL = UA Ketones) *NA*(09/15/2011 03:42:00) [facility] HoustonOfpdnagAEAQOEMGTN8830-21-92 08:42:00 Test Item Value Reference Range Interpretation Comments UA Bili (test code = Negative *NA*(09/15/2011 UA Bili) 03:42:00) [facility] HoustonHcmpookEXGRYANFRQ5742-81-28 08:42:00 Test Item Value Reference Range Interpretation Comments UA Color (test code = Yellow *NA*(09/15/2011 UA Color) 03:42:00) [facility] HoustonNyyxhfnJQHTZHTKEQ0180-89-20 08:42:00 Test Item Value Reference Range Interpretation Comments UA Turbidity (test code Slight A = UA Turbidity) *ABN*(09/15/2011 03:42:00) [facility] HoustonJpvtsmwGXLSWMSKEP7980-93-77 08:42:00 Test Item Value Reference Range Interpretation Comments UA Spec Grav (test code = UA Spec Grav) 1.012 N [facility] HoustonUnyobloPOZUMPCMVN5510-90-93 08:42:00 Test Item Value Reference Range Interpretation Comments UA Sq Epi (test code = UA Sq Epi) None Seen [facility] HoustonTmfpkybQVFKWPINTP2468-16-22 08:42:00 Test Item Value Reference Range Interpretation Comments UA Urobilinogen (test code *NA*(09/15/2011 0.1-1.0 = UA Urobilinogen) 03:42:00) [facility] CenterWsaaqxfGaaxiymifxpr6736-54-86 08:42:00 Test Item Value Reference Range Interpretation Comments Culture: Urine (test code = Culture: Urine) [facility] HoustonVzfdyjlYXXHESZUMZ4236-01-29 08:42:00 Test Item Value Reference Range Interpretation Comments UA Mucus (test code = Few /LPF UA Mucus) *NA*(09/15/2011 03:42:00) [facility] HoustonIpfwffbQACBLXRPEN0242-05-41 08:42:00 Test Item Value Reference Range Interpretation Comments UA RBC (test code = 1 See_Comment N [Automa lorie message] The UA RBC) system which ge nerated this result transmit lorie reference range : <=2. The reference range was not used to interpr et this result as asher l/abnormal. [facility] SouthFmpiovcXJCZSWGPKT2631-26-43 08:42:00 Test Item Value Reference Range Interpretation Comments UA Blood (test code = Negative (09/15/2011 N UA Blood) 03:42:00) [facility] SouthPpgjyhiGAIJANVOIR4361-90-58 08:42:00 Test Item Value Reference Range Interpretation Comments UA Nitrite (test code Negative (09/15/2011 N = UA Nitrite) 03:42:00) [facility] SouthSnmujavGRADRDABCP9236-09-49 08:42:00 Test Item Value Reference Range Interpretation Comments UA Leuk Est (test Negative (09/15/2011 N code = UA Leuk Est) 03:42:00) [facility] SouthDytuwvwXFLTSFASJY2516-41-24 08:42:00 Test Item Value Reference Range Interpretation Comments UA pH (test code = UA pH) 5.5 5.0-8.0 N [facility] SouthHwipuelCRIBDIPRQL2236-13-88 08:42:00 Test Item Value Reference Range Interpretation Comments UA Protein (test code Negative mg/dL N = UA Protein) (09/15/2011 03:42:00) [facility] SouthNfmdarnQIOJULVFJC8510-16-37 08:42:00 Test Item Value Reference Range Interpretation Comments UA Glucose (test code Negative mg/dL = UA Glucose) *NA*(09/15/2011 03:42:00) [facility] SouthHnmywejUZWSIFLTTS3782-65-38 08:42:00 Test Item Value Reference Range Interpretation Comments UA Ketones (test code Negative mg/dL = UA Ketones) *NA*(09/15/2011 03:42:00) [facility] SouthXoolxjqIWXTIYAAXT4317-91-05 08:42:00 Test Item Value Reference Range Interpretation Comments UA Bili (test code = Negative *NA*(09/15/2011 UA Bili) 03:42:00) [facility] SouthJnwdyiaELMDNHPGAV2781-31-39 08:42:00 Test Item Value Reference Range Interpretation Comments UA Color (test code = Yellow *NA*(09/15/2011 UA Color) 03:42:00) [facility] SouthOookswpPEHXNCOVED5834-97-20 08:42:00 Test Item Value Reference Range Interpretation Comments UA Turbidity (test code Slight A = UA Turbidity) *ABN*(09/15/2011 03:42:00) [facility] SouthQgresxiIZNBFRTAQU3566-29-00 08:42:00 Test Item Value Reference Range Interpretation Comments UA Spec Grav (test code = UA Spec Grav) 1.012 N [facility] CenterNbkaqccEFPGZOLERP5661-10-36 08:42:00 Test Item Value Reference Range Interpretation Comments UA Sq Epi (test code = UA Sq Epi) None Seen [facility] SouthCususlpBFZXGEOBDM1409-64-57 08:42:00 Test Item Value Reference Range Interpretation Comments UA Urobilinogen (test code *NA*(09/15/2011 0.1-1.0 = UA Urobilinogen) 03:42:00) [facility]GduwtnwFwxkxxvsltlt4491-54-06 08:42:00 Test Item Value Reference Range Interpretation Comments Culture: Urine (test code = Culture: Urine) [facility] CenterWrofiyxYABBTYZYV9452-63-18 08:40:00 Test Item Value Reference Range Interpretation Comments TSH (test code = TSH) 3.390 0.360-3.740 N [facility] CenterQlsevatHERLYMAJC9717-36-51 08:40:00 Test Item Value Reference Range Interpretation Comments T4 (test code = T4) 8.5 4.7-13.3 N [facility] CenterRfmahbyJUESRBONU4096-57-37 08:40:00 Test Item Value Reference Range Interpretation Comments T3 Uptake (test code = T3 Uptake) 33 31-39 N [facility] CenterEmiillvTDBMVVELF1772-19-16 08:40:00 Test Item Value Reference Range Interpretation Comments TSH (test code = TSH) 3.390 0.360-3.740 N [facility] CenterMwwrmfkRWTDLENPF0531-58-19 08:40:00 Test Item Value Reference Range Interpretation Comments Total Protein (test code = Total 6.4 6.4-8.4 N Protein) [facility] CenterQzxuzigIFWHDPAHO2821-41-33 08:40:00 Test Item Value Reference Range Interpretation Comments AST (test code = AST) 14 See_Comment N [Auto mated message] The system which ge nerated this result transmit lorie reference range : <=37. The reference range was not used to interpr et this result as asher l/abnormal. [facility] CenterGnhraeoXKHAZHNGT5685-40-30 08:40:00 Test Item Value Reference Range Interpretation Comments Bili Total (test code = Bili Total) 0.4 0.2-1.3 N [facility] CenterKeoekdtEBARLIJCL4680-34-40 08:40:00 Test Item Value Reference Range Interpretation Comments ALT (test code = ALT) 24 See_Comment N [Auto mated message] The system which ge nerated this result transmit lorie reference range : <=65. The reference range was not used to interpr et this result as asher l/abnormal. [facility] CenterGgzmuktAJDEFWJOK2126-96-37 08:40:00 Test Item Value Reference Range Interpretation Comments Alk Phos (test code = Alk Phos) 81 39-136 N [facility] CenterCnbsnotYMHDRKWDE2202-77-21 08:40:00 Test Item Value Reference Range Interpretation Comments Albumin Lvl (test code = Albumin Lvl) 3.3 3.5-5.0 L [facility] CenterQylxvbtGSZXNLDEH1189-70-01 08:40:00 Test Item Value Reference Range Interpretation Comments A/G Ratio (test code = A/G Ratio) 1.1 0.7-1.6 N [facility] CenterZbirvvkYFRSSWTLF6452-56-52 08:40:00 Test Item Value Reference Range Interpretation Comments B/C Ratio (test code = B/C Ratio) 14 6-25 N [facility] CenterQmmlvmjYLFCEKCRA4432-85-72 08:40:00 Test Item Value Reference Range Interpretation Comments Globulin (test code = Globulin) 3.1 2.0-4.0 N [facility] CenterYkaxvdgAEHPATVQM1005-21-82 08:40:00 Test Item Value Reference Range Interpretation Comments FTI (test code = FTI) 2.8 [facility] CenterIycmronXZYNDMBRYQ4721-94-37 08:40:00 Test Item Value Reference Range Interpretation Comments PTT (test code = PTT) 32.4 s 22.9-35.8 N [facility] CenterTeihsdyTCWWZAPOJA3607-07-79 08:40:00 Test Item Value Reference Range Interpretation Comments PT (test code = PT) 13.0 s 12.0-14.7 N [facility]CebvsbjCGHHEAYBUU3457-40-83 08:40:00 Test Item Value Reference Range Interpretation Comments INR (test code = INR) 0.98 0.85-1.17 N [facility] CenterWxspsjgHNKHZQYII7692-30-24 08:40:00 Test Item Value Reference Range Interpretation Comments TSH (test code = TSH) 3.390 0.360-3.740 N [facility] CenterUdviadtFGICHMCEU1703-83-81 08:40:00 Test Item Value Reference Range Interpretation Comments T4 (test code = T4) 8.5 4.7-13.3 N [facility] HospitalKqjogexTZSPHMXNF0675-05-45 08:40:00 Test Item Value Reference Range Interpretation Comments T3 Uptake (test code = T3 Uptake) 33 31-39 N [facility] CenterNdpvhwtFRNGYINZU5867-65-41 08:40:00 Test Item Value Reference Range Interpretation Comments TSH (test code = TSH) 3.390 0.360-3.740 N [facility] CenterWzktlekQKJCFCETX3570-93-09 08:40:00 Test Item Value Reference Range Interpretation Comments Total Protein (test code = Total 6.4 6.4-8.4 N Protein) [facility] CenterFfwdhkoBMHAXZYYU1657-23-94 08:40:00 Test Item Value Reference Range Interpretation Comments AST (test code = AST) 14 See_Comment N [Auto mated message] The system which ge nerated this result transmit lorie reference range : <=37. The reference range was not used to interpr et this result as asher l/abnormal. [facility] CenterBxyvunwVGFYVBRDH3920-42-49 08:40:00 Test Item Value Reference Range Interpretation Comments Bili Total (test code = Bili Total) 0.4 0.2-1.3 N [facility] CenterFdlaurkXIOGQBSBG4590-53-79 08:40:00 Test Item Value Reference Range Interpretation Comments ALT (test code = ALT) 24 See_Comment N [Auto mated message] The system which ge nerated this result transmit lorie reference range : <=65. The reference range was not used to interpr et this result as asher l/abnormal. [facility] CenterHjaqiimJNRLZRFJM2307-04-32 08:40:00 Test Item Value Reference Range Interpretation Comments Alk Phos (test code = Alk Phos) 81 39-136 N [facility] CenterSiquqsaTFYYSRNXR2574-76-38 08:40:00 Test Item Value Reference Range Interpretation Comments Albumin Lvl (test code = Albumin Lvl) 3.3 3.5-5.0 L [facility] CenterLsnxcknBRBHEDXXX6320-87-27 08:40:00 Test Item Value Reference Range Interpretation Comments A/G Ratio (test code = A/G Ratio) 1.1 0.7-1.6 N [facility] HospitalUicbczlUFQHYRTPB8768-55-30 08:40:00 Test Item Value Reference Range Interpretation Comments B/C Ratio (test code = B/C Ratio) 14 6-25 N [facility] CenterKlngklnTFKQZPSJQ2029-74-72 08:40:00 Test Item Value Reference Range Interpretation Comments Globulin (test code = Globulin) 3.1 2.0-4.0 N [facility] CenterGiukfcgZQGOJNMEA5800-86-80 08:40:00 Test Item Value Reference Range Interpretation Comments FTI (test code = FTI) 2.8 [facility] HospitalEtlikjwVPCQAFGCTS9863-99-61 08:40:00 Test Item Value Reference Range Interpretation Comments PTT (test code = PTT) 32.4 s 22.9-35.8 N [facility] HospitalOuvbblrOEDMNKTSVU5591-36-88 08:40:00 Test Item Value Reference Range Interpretation Comments PT (test code = PT) 13.0 s 12.0-14.7 N [facility] HospitalHtemkppFAUIIVRPXW2404-02-62 08:40:00 Test Item Value Reference Range Interpretation Comments INR (test code = INR) 0.98 0.85-1.17 N [facility] CenterNzaeeyxYVCRDOHSE1968-29-97 08:40:00 Test Item Value Reference Range Interpretation Comments TSH (test code = TSH) 3.390 0.360-3.740 N [facility] CenterLjwyrawAERMRRCGQ3599-52-84 08:40:00 Test Item Value Reference Range Interpretation Comments T4 (test code = T4) 8.5 4.7-13.3 N [facility] CenterLpbtuzoZTERFAWDP3979-24-96 08:40:00 Test Item Value Reference Range Interpretation Comments T3 Uptake (test code = T3 Uptake) 33 31-39 N [facility] CenterKswtgrdNUZCXQWYX1330-56-96 08:40:00 Test Item Value Reference Range Interpretation Comments TSH (test code = TSH) 3.390 0.360-3.740 N [facility] CenterTscjgotPXAMUXSJN6061-99-07 08:40:00 Test Item Value Reference Range Interpretation Comments Total Protein (test code = Total 6.4 6.4-8.4 N Protein) [facility] CenterWspngvhLXIFXHMZS5590-69-44 08:40:00 Test Item Value Reference Range Interpretation Comments AST (test code = AST) 14 See_Comment N [Auto mated message] The system which ge nerated this result transmit lorie reference range : <=37. The reference range was not used to interpr et this result as asher l/abnormal. [facility] CenterEvyzjmpCHCNHRBTH8855-63-83 08:40:00 Test Item Value Reference Range Interpretation Comments Bili Total (test code = Bili Total) 0.4 0.2-1.3 N [facility] CenterCoyfqqcTRPKJICIU6123-45-32 08:40:00 Test Item Value Reference Range Interpretation Comments ALT (test code = ALT) 24 See_Comment N [Auto mated message] The system which ge nerated this result transmit lorie reference range : <=65. The reference range was not used to interpr et this result as asher l/abnormal. [facility] CenterFswpyjwKZCLHAPPT0683-14-06 08:40:00 Test Item Value Reference Range Interpretation Comments Alk Phos (test code = Alk Phos) 81 39-136 N [facility] CenterBqtnjhvXVNGSPAXU2141-69-07 08:40:00 Test Item Value Reference Range Interpretation Comments Albumin Lvl (test code = Albumin Lvl) 3.3 3.5-5.0 L [facility] CenterYtkuxhjFFXHDXPID3892-90-12 08:40:00 Test Item Value Reference Range Interpretation Comments A/G Ratio (test code = A/G Ratio) 1.1 0.7-1.6 N [facility] CenterKvughxsGVEFJJXTX9890-55-83 08:40:00 Test Item Value Reference Range Interpretation Comments B/C Ratio (test code = B/C Ratio) 14 6-25 N [facility] CenterAtenhikCWOKLEHMN5248-51-52 08:40:00 Test Item Value Reference Range Interpretation Comments Globulin (test code = Globulin) 3.1 2.0-4.0 N [facility] CenterLgwffojZONSWAXEJ0690-45-29 08:40:00 Test Item Value Reference Range Interpretation Comments FTI (test code = FTI) 2.8 [facility] HospitalNezbplaLDNKRDZZWS7229-74-20 08:40:00 Test Item Value Reference Range Interpretation Comments PTT (test code = PTT) 32.4 s 22.9-35.8 N [facility] HospitalTxvhulbNGRHVVETBW2934-18-13 08:40:00 Test Item Value Reference Range Interpretation Comments PT (test code = PT) 13.0 s 12.0-14.7 N [facility] HospitalAlisytqIOGSPGJNSC3465-02-52 08:40:00 Test Item Value Reference Range Interpretation Comments INR (test code = INR) 0.98 0.85-1.17 N [facility] CenterSikodwqUBBWSOGRY5864-40-07 08:40:00 Test Item Value Reference Range Interpretation Comments TSH (test code = TSH) 3.390 0.360-3.740 N [facility] CenterAfawrqvFRKOARLBJ8586-15-61 08:40:00 Test Item Value Reference Range Interpretation Comments T4 (test code = T4) 8.5 4.7-13.3 N [facility] CenterShomgrfJBXFXLZSW1158-43-32 08:40:00 Test Item Value Reference Range Interpretation Comments T3 Uptake (test code = T3 Uptake) 33 31-39 N [facility] CenterFnhiaeuNXZYBBIUR0605-63-82 08:40:00 Test Item Value Reference Range Interpretation Comments TSH (test code = TSH) 3.390 0.360-3.740 N [facility] CenterJjgvifhGWPGZMWMC9428-88-86 08:40:00 Test Item Value Reference Range Interpretation Comments Total Protein (test code = Total 6.4 6.4-8.4 N Protein) [facility] CenterIxawhlbHRYUATYIR9024-02-09 08:40:00 Test Item Value Reference Range Interpretation Comments AST (test code = AST) 14 See_Comment N [Auto mated message] The system which ge nerated this result transmit lorie reference range : <=37. The reference range was not used to interpr et this result as asher l/abnormal. [facility] CenterXiexsddQLRJFKDQH7341-24-57 08:40:00 Test Item Value Reference Range Interpretation Comments Bili Total (test code = Bili Total) 0.4 0.2-1.3 N [facility] CenterCwhycrdGLKHIYMUI1833-06-03 08:40:00 Test Item Value Reference Range Interpretation Comments ALT (test code = ALT) 24 See_Comment N [Auto mated message] The system which ge nerated this result transmit lorie reference range : <=65. The reference range was not used to interpr et this result as asher l/abnormal. [facility] CenterSivysrxBOECTFCME7672-04-05 08:40:00 Test Item Value Reference Range Interpretation Comments Alk Phos (test code = Alk Phos) 81 39-136 N [facility] CenterFbkuahpMUVYPILXF4436-14-32 08:40:00 Test Item Value Reference Range Interpretation Comments Albumin Lvl (test code = Albumin Lvl) 3.3 3.5-5.0 L [facility] CenterEmepyzuSYZKCWKJV2321-10-17 08:40:00 Test Item Value Reference Range Interpretation Comments A/G Ratio (test code = A/G Ratio) 1.1 0.7-1.6 N [facility] CenterQifjpujVHCKDWHBW1373-06-06 08:40:00 Test Item Value Reference Range Interpretation Comments B/C Ratio (test code = B/C Ratio) 14 6-25 N [place] [address]-06-02 08:40:00 Test Item Value Reference Range Interpretation Comments Globulin (test code = Globulin) 3.1 2.0-4.0 N [facility] CenterXqypipbHABXACGYR4677-20-98 08:40:00 Test Item Value Reference Range Interpretation Comments FTI (test code = FTI) 2.8 [facility] HospitalYhxufotVQJEQCRVKL2747-30-58 08:40:00 Test Item Value Reference Range Interpretation Comments PTT (test code = PTT) 32.4 s 22.9-35.8 N [facility] HospitalHmxopljMEKROSJQKT0680-44-58 08:40:00 Test Item Value Reference Range Interpretation Comments PT (test code = PT) 13.0 s 12.0-14.7 N [facility] HospitalQjdqkqkHERCKUXWXN0354-37-76 08:40:00 Test Item Value Reference Range Interpretation Comments INR (test code = INR) 0.98 0.85-1.17 [facility]SP[facility]LRSYC0797-[facility]-05 08:40:00 Test Item Value Reference Range Interpretation Comments TSH (test code = TSH) 3.390 0.360-3.740 [facility]HccgwenQAIXODECR7126-47-91 08:40:00 Test Item Value Reference Range Interpretation Comments T4 (test code = T4) 8.5 4.7-13.3 N [facility] CenterJfkmayuERSIIDDZU2505-79-53 08:40:00 Test Item Value Reference Range Interpretation Comments T3 Uptake (test code = T3 Uptake) 33 31-39 N [facility] CenterFnjorktLUVHXEUPB3047-72-51 08:40:00 Test Item Value Reference Range Interpretation Comments TSH (test code = TSH) 3.390 0.360-3.740 N [facility] CenterThdqxqyHOPCRIQOL2020-76-34 08:40:00 Test Item Value Reference Range Interpretation Comments Total Protein (test code = Total 6.4 6.4-8.4 N Protein) [id number] 08:40:00 Test Item Value Reference Range Interpretation Comments AST (test code = AST) 14 See_Comment N [Auto mated message] The system which ge nerated this result transmit lorie reference range : <=37. The reference range was not used to interpr et this result as asher l/abnormal. [facility] VghhhakFTKLXNZHI6891-81-96 08:40:00 Test Item Value Reference Range Interpretation Comments Bili Total (test code = Bili Total) 0.4 0.2-1.3 N [facility]aw[facility]HYOVJZP3375-27-18 08:40:00 Test Item Value Reference Range Interpretation Comments ALT (test code = ALT) 24 See_Comment N [Auto mated message] The system which ge nerated this result transmit lorie reference range : <=65. The reference range was not used to interpr et this result as asher l/abnormal. [facility]IbnlqfiJRDIFAWNS0831-35-67 08:40:00 Test Item Value Reference Range Interpretation Comments Alk Phos (test code = Alk Phos) 81 39-136 N [facility] HospitalRegpjchCNNSLKWTZ4698-38-67 08:40:00 Test Item Value Reference Range Interpretation Comments Albumin Lvl (test code = Albumin Lvl) 3.3 3.5-5.0 L [facility] OvdbflaNRGBYPJIS7676-40-83 08:40:00 Test Item Value Reference Range Interpretation Comments A/G Ratio (test code = A/G Ratio) 1.1 0.7-1.6 N [facility] HospitalOrmaczsVRFSEYDAA3351-47-64 08:40:00 Test Item Value Reference Range Interpretation Comments B/C Ratio (test code = B/C Ratio) 14 6-25 N [facility] HospitalUjpxnurHTOZGVUEB5544-06-06 08:40:00 Test Item Value Reference Range Interpretation Comments Globulin (test code = Globulin) 3.1 2.0-4.0 [facility] HospitalCmyhkohEKIJSORDC8062-95-43 08:40:00 Test Item Value Reference Range Interpretation Comments FTI (test code = FTI) 2.8 [facility] HospitalCkagmnxQJCJGZMQSY4632-93-15 08:40:00 Test Item Value Reference Range Interpretation Comments PTT (test code = PTT) 32.4 s 22.9-35.8 N [facility] HospitalGiblusxOIMNHLDZFO0290-96-15 08:40:00 Test Item Value Reference Range Interpretation Comments PT (test code = PT) 13.0 s 12.0-14.7 N [facility]VkobgslRWZQAIBTIW6776-90-72 08:40:00 Test Item Value Reference Range Interpretation Comments INR (test code = INR) 0.98 0.85-1.17 [facility]
--- NOTE | 2022-11-09 19:19 | RAD REPORT ---
EXAM DESCRIPTION: CT - Head Brain Wo Cont - 11/09/2022 7:11 pm CLINICAL HISTORY: Headache COMPARISON: June 2022 TECHNIQUE: Computed axial tomography of the head was obtained. IV contrast was not requested. All CT scans are performed using dose optimization technique as appropriate and may include automated exposure control or mA/KV adjustment according to patient size. FINDINGS: An intracranial bleed is not seen The ventricles are normal in caliber No extra-axial fluid collection is noted. Mild cerebral atrophy. No significant hypodensity within brain noted Fluid within the sinuses/ mastoids is not seen. IMPRESSION: No acute intracranial abnormality is seen If patient's symptoms persist MRI of the brain would be recommended
[2022-11-09 19:41] LABS: Protime INR 1.07
--- NOTE | 2022-11-09 19:45 | RAD REPORT ---
EXAM DESCRIPTION: Olivia Single View11/09/2022 7:36 pm CLINICAL HISTORY: Chest pain COMPARISON: August 2022 FINDINGS: The lungs appear clear of acute infiltrate. The heart is normal size. Postsurgical changes involve chest IMPRESSION: No acute abnormalities displayed
[2022-11-09 19:49] LABS: Hematocrit 35.6 % (39.6-49.0); Lymphocytes % 35.2 % (15.3-44.8); MCV 71.4 fL (80-100); RBC Red Blood Cell Count 4.99 M/uL (4.33-5.43)
[2022-11-09] MEDS ORDERED: MORPHINE 4 MG/ML SYR ONE (20:16)
[2022-11-09] MEDS ORDERED: ONDANSETRON 4 MG/2 ML VIAL ONE (20:16)
[2022-11-09 21:35] LABS: AST/SGOT 11 U/L (15-37); Albumin 3.2 g/dL (3.4-5.0); Alkaline Phosphatase 64 U/L (45-117); BUN Blood Urea Nitrogen 10 mg/dL (7-18); Bicarbonate 26 mEq/L (21-32); Bilirubin Total 0.2 mg/dL (0.2-1.0); Glomerular Filtration Rate 105 ml/min (=/>90); Glucose Level 97 mg/dL (74-106); Lipase 25 U/L (13-75); Magnesium 2.3 mg/dL (1.6-2.4); NT PRO-BNP 205 pg/mL (<125); Potassium 4.3 mEq/L (3.5-5.1); Protein, Total 7.5 g/dL (6.4-8.2); Sodium Level 139 mEq/L (136-145); Troponin High Sensitivity 12.9 pg/mL (<58.9)
[2022-11-09 21:37] LABS: ALT/SGPT < 10 U/L (16-61); Bilirubin Direct < 0.1 mg/dL (0-0.2); Bilirubin Indirect, Calculated ND mg/dL (0.2-0.8)
--- NOTE | 2022-11-09 21:51 | EDPHYS ---
Physician Documentation [facility] Name: Bryan Graf Age: 72 yrs Sex: Male : 1950 Arrival Date: 11/09/2022 Time: 18:26 Bed 5 Private MD: ED Physician Luis Eduardo Stover HPI: 11/09 19:00 This 72 yrs old Male presents to ER via EMS with complaints of Chest Pain, Headache. cp 19:00 The patient or guardian reports chest pain that is located primarily in the anterior cp chest wall. 19:00 Onset: 2 hour(s) ago. The pain does not radiate. Associated signs and symptoms: cp Pertinent positives: headache, Pertinent negatives: abdominal pain, cough, diaphoresis, dizziness, lower extremity pain, lower extremity swelling, shortness of breath, vomiting. The chest pain is described as a pressure. Duration: The patient or guardian reports a single episode, that is still ongoing, and unchanged. Historical: - Allergies: 18:38 Aspirin; bp 18:38 PENICILLINS; bp - PMHx: 18:38 Chronic pain; COPD; CVA; Hypertension; Migraine; Pneumonia; Seizures; swelling and pain bp to L lower leg; - PSHx: 18:38 heart surgery; bp - Immunization history:: Adult Immunizations up to date. - Social history:: Smoking status: unknown. ROS: 19:05 Constitutional: Negative for body aches, chills, fever, poor PO intake. cp 19:05 Eyes: Negative for injury, pain, redness, and discharge. cp 19:05 ENT: Negative for drainage from ear(s), ear pain, sore throat, difficulty swallowing, difficulty handling secretions. 19:05 Neck: Negative for pain with movement, pain at rest, stiffness. 19:05 Cardiovascular: Positive for chest pain, Negative for edema, palpitations. 19:05 Respiratory: Negative for cough, shortness of breath, wheezing. 19:05 Abdomen/GI: Negative for abdominal pain, nausea, vomiting, and diarrhea. 19:05 Back: Negative for pain at rest, pain with movement. 19:05 Neuro: Positive for headache, Negative for altered mental status, dizziness, numbness, syncope, weakness. 19:05 All other systems are negative. Exam: 19:08 Constitutional: The patient appears in no acute distress, alert, awake, cp non-diaphoretic, non-toxic, well developed, well nourished, uncomfortable. 19:08 Head/Face: Normocephalic, atraumatic. cp 19:08 Eyes: Periorbital structures: appear normal, Conjunctiva: normal, no exudate, no injection, Sclera: no appreciated abnormality, Lids and lashes: appear normal, bilaterally. 19:08 ENT: External ear(s): are unremarkable, Nose: is normal, Mouth: Lips: moist, Oral mucosa: pink and intact, moist, Posterior pharynx: is normal, airway is patent, no erythema, no exudate. 19:08 Neck: ROM/movement: is normal, is supple, without pain, no range of motions limitations. 19:08 Chest/axilla: Inspection: normal, Palpation: is normal, no crepitus, no tenderness. 19:08 Cardiovascular: Rate: normal, Rhythm: regular, Edema: is not appreciated, JVD: is not appreciated. 19:08 Respiratory: the patient does not display signs of respiratory distress, Respirations: normal, no use of accessory muscles, no retractions, labored breathing, is not present, Breath sounds: are clear throughout, no decreased breath sounds, no stridor, no wheezing. 19:08 Abdomen/GI: Inspection: abdomen appears normal, Palpation: abdomen is soft and non-tender, in all quadrants. 19:08 Back: pain, is absent, ROM is normal. 19:08 Neuro: Orientation: to person, place \T\ time. Mentation: is normal, Motor: moves all fours, strength is normal, Sensation: no obvious gross deficits. 19:10 ECG was reviewed by the Attending Physician. cp Vital Signs: 18:37 BP 138 / 66; Pulse 71; Resp 16; Temp 98.6; Pulse Ox 98% ; bp 19:45 BP 134 / 50; Pulse 65; Resp 16; Pulse Ox 98% on R/A; jb4 20:30 BP 131 / 60; Pulse 58; Resp 16; Pulse Ox 98% on R/A; jb4 21:30 BP 135 / 53; Pulse 65; Resp 16; Pulse Ox 99% on R/A; jb4 22:45 BP 152 / 64; Pulse 65; Resp 16; Pulse Ox 97% on R/A; jb4 MDM: 18:40 Patient medically screened. cp 21:50 The patient was not given aspirin in the Emergency Department. Not indicated due to patient's past medical history. Data reviewed: vital signs, nurses notes, lab test result(s), EKG, radiologic studies, CT scan, plain films. Consideration of Admission/Observation Escalation of care including admission/observation considered. 21:50 I considered the following discharge prescriptions or medication management in the emergency department Medications were administered in the Emergency Department. See MAR. Independent interpretation of the following test(s) in the Emergency Department EKG: See my EKG interpretation above. Care significantly affected by the following chronic conditions: Hypertension, Chronic Obstructive Pulmonary Disease. 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 Response to treatment: the patient's symptoms have markedly improved after treatment. ED course: VSS. Discussed results of today's testing, initial troponin negative and EKG negative for STEMI. Patient declined observation and continued testing, requesting discharge to home to f/u outpatient. 11/09 19:00 Order name: Basic Metabolic Panel; Complete Time: 21:39 cp 11/09 21:39 Interpretation: Normal except: CL 108; CRE 0.54. cp 11/09 19:00 Order name: CBC with Diff 11/09 21:06 Interpretation: Normal except: HGB 11.1; HCT 35.6; MCV 71.4; MCH 22.1; MCHC 31.0; RDW cp 24.9; BASO% 4.9. 11/09 19:00 Order name: LFT's; Complete Time: 21:39 cp 11/09 19:00 Order name: Magnesium; Complete Time: 21:39 cp 11/09 19:00 Order name: NT PRO-BNP; Complete Time: 21:39 cp 11/09 19:00 Order name: PT-INR; Complete Time: 19:50 cp 11/09 19:00 Order name: Troponin HS; Complete Time: 21:39 cp 11/09 21:40 Interpretation: Troponin HS 12.9; Reviewed. 11/09 19:01 Order name: Lipase; Complete Time: 21:39 11/09 22:52 Order name: CBC Smear Scan EDMS 11/09 19:00 Order name: XRAY Chest (1 view); Complete Time: 19:50 11/09 19:01 Order name: CT Head Brain wo Cont; Complete Time: 19:50 11/09 21:40 Interpretation: Report reviewed. 11/09 19:00 Order name: EKG; Complete Time: 19:02 11/09 19:00 Order name: Cardiac monitoring; Complete Time: 19:29 11/09 19:00 Order name: EKG - Nurse/Tech; Complete Time: 19:08 11/09 19:00 Order name: IV Saline Lock; Complete Time: 19:29 11/09 19:00 Order name: Labs collected and sent; Complete Time: 19:29 11/09 19:00 Order name: O2 Per Protocol; Complete Time: 19:29 11/09 19:01 Order name: O2 Sat Monitoring; Complete Time: 19:29 11/09 19:46 Order name: Labs - recollect needed: Green top- hemolyzed; Complete Time: 21:15 mc5 EC:10 Rate is 65 beats/min. Rhythm is regular. SC interval is prolonged at 230 msec. QRS cp interval is normal. QT interval is normal. T waves are Inverted in lead aVR. Interpreted by me. Reviewed by me. Administered Medications: 20:13 Drug: morphine IVP or IV 4 mg Route: IVP; Infused Over: 4 mins; Site: right forearm; jb4 20:13 Drug: Ondansetron IVP 4 mg Route: IVP; Site: right forearm; jb4 22:47 Drug: Clopidogrel PO 75 mg Route: PO; jb4 Disposition Summary: 11/09/22 21:51 Discharge Ordered Location: Home cp Problem: new cp Symptoms: have improved cp Condition: Stable cp Diagnosis - Headache cp - Chest pain, unspecified cp Followup: cp - With: Margarito Hidalgo MD - When: 2 - 3 days - Reason: Recheck today's complaints Discharge Instructions: - Discharge Summary Sheet cp - Nonspecific Chest Pain, Adult cp - General Headache Without Cause cp Forms: - Medication Reconciliation Form cp - Thank You Letter cp - Antibiotic Education cp - Prescription Opioid Use cp - Patient Portal Instructions cp Prescriptions: - clopidogrel 75 mg Oral tablet - take 1 tablet by ORAL route daily; 20 tablet; Refills: 0, Product Selection cp Permitted Signatures: Dispatcher [employer] EDMS Luis Eduardo Sanchez PA PA cp Bryson, James RN RN jb4 Abhishek Blue RN RN Marianela Jacobson 5 Corrections: (The following items were deleted from the chart) 11/10 18:07 18:04 The patient was not given aspirin in the Emergency Department. Not indicated due cp to patient's past medical history. cp 18: 18:04 Data reviewed: vital signs, nurses notes, lab test result(s), EKG, radiologic cp studies, CT scan, plain films, cp 18:07 18:04 Consideration of Admission/Observation Escalation of care including cp admission/observation considered. cp
--- NOTE | 2022-11-09 21:51 | ER ---
Nurse's Notes [facility] Name: Bryan Graf Age: 72 yrs Sex: Male : 1950 Arrival Date: 11/09/2022 Time: 18:26 Bed 5 Private MD: Diagnosis: Headache;Chest pain, unspecified Presentation: 11/09 18:37 Chief complaint: EMS states: CHEST PAIN AND SAMS x2 HR AT [facility]. Coronavirus bp screen: At this time, the client does not indicate any symptoms associated with coronavirus-19. Ebola Screen: No symptoms or risks identified at this time. Initial Sepsis Screen: Does the patient meet any 2 criteria? No. Patient's initial sepsis screen is negative. Does the patient have a suspected source of infection? No. Patient's initial sepsis screen is negative. Risk Assessment: Do you want to hurt yourself or someone else? Patient reports no desire to harm self or others. Onset of symptoms was November 09, 2022 at 16:30. 18:37 Method Of Arrival: EMS: [facility] bp 18:37 Acuity: GELACIO 3 bp Historical: - Allergies: 18:38 Aspirin; bp 18:38 PENICILLINS; bp - PMHx: 18:38 Chronic pain; COPD; CVA; Hypertension; Migraine; Pneumonia; Seizures; swelling and pain bp to L lower leg; - PSHx: 18:38 heart surgery; bp - Immunization history:: Adult Immunizations up to date. - Social history:: Smoking status: unknown. Screenin:45 [facility] ED Fall Risk Assessment (Adult) History of falling in the last 3 months, jb4 including since admission No falls in past 3 months (0 pts) Confusion or Disorientation No (0 pts) Score/Fall Risk Level 0 - 2 = Low Risk Oriented to surroundings, Maintained a safe environment. Abuse screen: Denies threats or abuse. Nutritional screening: No deficits noted. Tuberculosis screening: No symptoms or risk factors identified. Assessment: 18:38 General: SEE TRIAGE NOTE. bp 19:15 Reassessment: Patient appears in no apparent distress at this time. Patient and/or jb4 family updated on plan of care and expected duration. Pain level reassessed. Patient is alert, oriented x 3, equal unlabored respirations, skin warm/dry/pink. 20:30 Reassessment: Patient appears in no apparent distress at this time. Patient and/or jb4 family updated on plan of care and expected duration. Pain level reassessed. Patient is alert, oriented x 3, equal unlabored respirations, skin warm/dry/pink. 21:45 Reassessment: Patient appears in no apparent distress at this time. Patient and/or jb4 family updated on plan of care and expected duration. Pain level reassessed. Patient is alert, oriented x 3, equal unlabored respirations, skin warm/dry/pink. 22:56 Reassessment: Patient appears in no apparent distress at this time. Patient and/or jb4 family updated on plan of care and expected duration. Pain level reassessed. Patient is alert, oriented x 3, equal unlabored respirations, skin warm/dry/pink. Vital Signs: 18:37 BP 138 / 66; Pulse 71; Resp 16; Temp 98.6; Pulse Ox 98% ; bp 19:45 BP 134 / 50; Pulse 65; Resp 16; Pulse Ox 98% on R/A; jb4 20:30 BP 131 / 60; Pulse 58; Resp 16; Pulse Ox 98% on R/A; jb4 21:30 BP 135 / 53; Pulse 65; Resp 16; Pulse Ox 99% on R/A; jb4 22:45 BP 152 / 64; Pulse 65; Resp 16; Pulse Ox 97% on R/A; jb4 ED Course: 18:37 Patient arrived in ED. bp 18:38 Triage completed. bp 18:38 Arm band placed on. bp 18:40 Luis Eduardo Sanchez PA is PHCP. cp 18:40 Luis Eduardo Stover MD is Attending Physician. cp 19:07 Abhishek Blue, JOSEPH is Primary Nurse. bp 19:12 CT Head Brain wo Cont In Process Unspecified. EDMS 19:15 Initial lab(s) drawn, by id, sent to lab. Inserted saline lock: 20 gauge in right jb4 forearm, using aseptic technique. Blood collected. Patient maintains SpO2 saturation greater than 95% on room air. 19:38 XRAY Chest (1 view) In Process Unspecified. EDMS 19:45 Patient has correct armband on for positive identification. Bed in low position. Call jb4 light in reach. Side rails up X 1. Client placed on continuous cardiac and pulse oximetry monitoring. NIBP monitoring applied. cardiac monitor on. 21:51 Raslan, Margarito, MD is Referral Physician. cp 22:58 IV discontinued, intact, bleeding controlled, No redness/swelling at site. Pressure jb4 dressing applied. Administered Medications: 20:13 Drug: morphine IVP or IV 4 mg Route: IVP; Infused Over: 4 mins; Site: right forearm; jb4 20:13 Drug: Ondansetron IVP 4 mg Route: IVP; Site: right forearm; jb4 22:47 Drug: Clopidogrel PO 75 mg Route: PO; jb4 Medication: 18:38 VIS not applicable for this client. bp Outcome: 21:51 Discharge ordered by MD. cp 22:58 Discharged to home ambulatory. jb4 22:58 Condition: stable 22:58 Discharge instructions given to patient, Instructed on discharge instructions, follow up and referral plans. medication usage, Demonstrated understanding of instructions, follow-up care, medications, Prescriptions given X 1. 22:59 Patient left the ED. jb4 Signatures: Dispatcher [employer] EDMS Luis Eduardo Sanchez PA PA cp Jeff Guzman, RN RN jb4 Abhishek Blue, JOSEPH RN bp
[2022-11-09 22:50] LABS: Platelet Estimate ADEQ; White Blood Cell Scan OK (OK)
[2022-11-09 22:51] LABS: Anisocytosis 3+; Blood Morphology Comment NOTED (NOT SEEN)
[2022-11-09] MEDS ORDERED: CLOPIDOGREL 75 MG TABLET ONE (22:51)
[2022-11-09 23:11] VITALS: TEMP 98.6
[2022-11-09 23:23] VITALS: BP 152/64; O2SAT 97
--- NOTE | 2022-11-11 13:15 | EKG ---
Test Date: 2022-11-09 Test Time: 19:02:00 Director Of Accounts Payable: BP MEASUREMENT RESULTS: Intervals: Rate: 65 GA: 230 QRSD: 96 QT: 412 QTc: 428 [place]: P: 76 GA: 230 QRS: -40 T: 27 INTERPRETIVE STATEMENTS: Sinus rhythm with 1st degree AV block Left axis deviation Abnormal ECG Compared to ECG 09/12/2022 03:47:49 Sinus bradycardia no longer present Electronically Signed On 11-11-22 13:12:04 CDT by Margarito Hidalgo
== END 2022-11-09 22:59 | disposition home or self-care (01) ==
LOC: ER 18:26
DX: R07.89 Other chest pain (principal); R51.9 Headache, unspecified; I10 Essential (primary) hypertension; J44.9 Chronic obstructive pulmonary disease, unspecified; Z88.0 Allergy status to penicillin; Z88.6 Allergy status to analgesic agent
CPT/HCPCS: 93005; 85025; 80048; 36415; 83735; 85610; 80076; 84484; 83690; 83880; 70450; 71045; 96375; 96374; 99285; J2405

== ENCOUNTER 2022-12-12 12:53 | Emergency (ER) | payer OTHER ==
--- OUTSIDE RECORDS SUMMARY | 2022-12-12 13:06 | XMS REPORT | Continuity of Care Document ---
:1950 Author Organization [facility] t Address [address] [place] [address] [place] [id number] Care Team Providers Name Role Phone Uli [...] (chronic nce 8-25 [facility] obstructiv obstructiv 00:00: Ut dical e e 00 Center pulmonary pulmonary disease) disease) Altered Altered Disease Active [facility] mental mental 8-25 [facility] status status 00:00: Medical 00 [place] Ptosis, Ptosis, Disease Active [facility] left [...] fibrillati fibrillati 00:00: Me dical on Center Pulmonary Pulmonary Disease Active [facility] embolism embolism 8-14 [facility] 00:00: Medical [place] Left-sided Left-sided Disease Active [facility] muscle muscle 6-26 [facility] weakness weakness 00:00: Medica l 00 [place] Muscle Muscle Disease Active [facility] cramps cramps 6-26 [facility] 00:00: Medical [place] Tension Tension Disease Active [facility] type [...] Thao kes ation ation 00:00: Medical 00 [place] Cellulitis Cellulitis Disease Active [facility] of of 3-19 [facility]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 00:00: 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 space of 00 [place] mouth mouth Mandibular Mandibular Disease Active [facility] abscess abscess 3-18 [facility] 00:00: Medical 00 Center CVA CVA Diagnosis Active 2011-09-21 Mem oria Active 09-12 14:49:00 l 09/13/2011 06:00: Richard n 00 Rehabilita tion Dysarthria Dysarthri Problem Active 2011-10-03 Memoria a Active 08:09:33 l Problem [place] 10/03/2011 [facility] Weakness Weakness Problem Active 2011-10-03 Memoria Active 08:09:33 l Problem [place] 10/03/2011 [facility] CVA CVA Diagnosis Active 2011-09-21 Mem oria [...] 00 Center aspirin aspirin Active Memoria l [place] codeine codeine Active [facility] [place] penicill penicill Active Memori a ins ins l [place] Family History Family Member Diagnosis Comments Start [...] [facility] exposure 00:00:00 00:00:00 [facility]-user [facility] Sex Assigned At [birth year] [facility] Thao beckfords 00:00:00 00:00:00 [facility] Center Smoking Status Start Date Stop Date Source Smokes tobacco daily 2016-11-26 00:00:00 [facility] Medications Ordered Filled Start Stop Current Ordering Indication Dosage Frequency Signature Comments Components Source Medication Medication Date Date Medication? Clinician (SIG) Name Name acetaminoph 2016- Yes 500mg Take [address] en 9-08 mg by [facility] (TYLENOL) 12:11: mouth Medical 500 MG 30 every 4 Center tablet (four) hours as needed for Pain. acetaminoph 2016-0 Yes 500mg Take [address] en 9-08 mg by [facility] (TYLENOL) 12:11: mouth Medical 500 MG 30 every 4 Center tablet (four) hours as needed for Pain. acetaminoph 2016- Yes 500mg Take [address] en 9-08 mg by [facility] (TYLENOL) 12:11: mouth Medical 500 MG 30 every 4 Center tablet (four) hours as needed for Pain. acetaminoph Yes 500mg Take [address] en 9-08 mg by [facility] (TYLENOL) 12:11: mouth Medical 500 MG 30 every 4 Center tablet (four) hours as needed for Pain. acetaminoph 2017-0 Yes 500mg Take [address] en 9-08 mg by [facility] (TYLENOL) 12:11: mouth Medical 500 MG 30 every 4 Center tablet (four) hours as needed for Pain. acetaminoph 2016- Yes 500mg Take [address] en 9-08 mg by [facility] (TYLENOL) 12:11: mouth Medical 500 MG 30 every 4 Center tablet (four) hours as needed for Pain. arformotero 2016- Yes 15ug Q.5D Take [address] [facility] (BROVANA) -08 (15 mcg [facility] 15 mcg/2 mL 00:00: total) by M kelley nebulizer 00 nebulizati Cent er solution on 2 (two) times daily. rivaroxaban 2016- Yes 15mg Take [address] [facility] (XARELTO) [...] 15 mcg/2 mL 00:00: total) by M [employer] nebulizer 00 nebulizati Cent er solution on [...] PO, Memoria 6-16 Substituti l 23:36: on [place] 37 Allowed, TAB Soma 2011-0 Yes 1, PO, Memoria 6-16 Substituti l 23:36: on [place] 37 Allowed, TAB Soma 2011-0 Yes 1, PO, Memoria 6-16 Substituti l 23:36: on [place] 37 Allowed, TAB Soma 2011-0 Yes 1, PO, Memoria 6-16 Substituti l 23:36: on [place] 37 Allowed, TAB Soma 2012-0 Yes 1, PO, Memoria 6-16 Substituti l 23:36: on [place] 37 Allowed, TAB Soma 2012-0 Yes 1, PO, Memoria 6-16 Substituti l 23:36: on [place] 37 Allowed, TAB OXYcodone 2012-0 Yes 1, PO, Memori a 6-16 PRN, as l 23:36: needed for [place] 23 pain, Substituti on Allowed, TAB OXYcodone 2012-0 Yes 1, PO, Memori a 6-16 PRN, as l 23:36: needed for [place] 23 pain, Substituti on Allowed, TAB OXYcodone 2012-0 Yes 1, PO, Memori a 6-16 PRN, as l 23:36: needed for [place] 23 pain, Substituti on Allowed, TAB OXYcodone 2012-0 Yes 1, PO, Memori a 6-16 PRN, as l 23:36: needed for [place] 23 pain, Substituti on Allowed, TAB OXYcodone 2012-0 Yes 1, PO, Memori a 6-16 PRN, as l 23:36: needed for [place] 23 pain, Substituti on Allowed, TAB OXYcodone 2012-0 Yes 1, PO, Memori a 6-16 PRN, as l 23:36: needed for [place] 23 pain, Substituti on Allowed, TAB Ambien 5 mg 2012-0 Yes Meilani H 5 mg, 1 Memoria oral tablet 6-15 [place] tab, PO, l 19:27: Bedtime, [place] 59 30 tab, Substituti on Allowed, TAB Ambien 5 mg 2012-0 Yes Meilani H 5 mg, 1 Memoria oral tablet 6-15 [place] tab, PO, l 19:27: Bedtime, [place] 59 30 tab, Substituti on Allowed, TAB Ambien 5 mg 2012-0 Yes Meilani H 5 mg, 1 Memoria oral tablet 6-15 [place] tab, PO, l 19:27: Bedtime, [place] 59 30 tab, Substituti on Allowed, TAB Ambien 5 mg 2011-0 Yes Meilani H 5 mg, 1 Memoria oral tablet 6-15 [place] tab, PO, l 19:27: Bedtime, [place] 59 30 tab, Substituti on Allowed, TAB Ambien 5 mg 2011- Yes Meilani H 5 mg, 1 Memoria oral tablet 6-15 [place] tab, PO, l 19:27: Bedtime, [place] 59 30 tab, Substituti on Allowed, TAB Ambien 5 mg 2011- Yes Meilani H 5 mg, 1 Memoria oral tablet 6-15 [place] tab, PO, l 19:27: Bedtime, [place] 59 30 tab, Substituti on Allowed, TAB Keppra 750 2011- Yes Meilani H 750 mg, 1 Memoria mg oral 6-15 [place] tab, PO, l tablet 19:27: Q12H, 60 [place] 52 tab, Substituti on Allowed, TAB Keppra 750 2011- Yes Meilani H 750 mg, 1 Memoria mg oral 6-15 [place] tab, PO, l tablet 19:27: Q12H, 60 [place] 52 tab, Substituti on Allowed, TAB Keppra 750 2011-0 Yes Meilani H 750 mg, 1 Memoria mg oral 6-15 [place] tab, PO, l tablet 19:27: Q12H, 60 [place] 52 tab, Substituti on Allowed, TAB Keppra 750 2011-0 Yes Meilani H 750 mg, 1 Memoria mg oral 6-15 [place] tab, PO, l tablet 19:27: Q12H, 60 [place] 52 tab, Substituti on Allowed, TAB Keppra 750 2011-0 Yes Meilani H 750 mg, 1 Memoria mg oral 6-15 [place] tab, PO, l tablet 19:27: Q12H, 60 [place] 52 tab, Substituti on Allowed, TAB Keppra 750 2011-0 Yes Meilani H 750 mg, 1 Memoria mg oral 6-15 [place] tab, PO, l tablet 19:27: Q12H, 60 [place] 52 tab, Substituti on Allowed, TAB famotidine 2011-0 Yes Meilani H 20 mg, 1 Memoria 20 mg oral 6-15 [place] tab, PO, l tablet 19:27: BID, 60 [place] 44 tab, Substituti on Allowed, TAB famotidine 0 Yes Meilani H 20 mg, 1 Memoria 20 mg oral 6-15 [place] tab, PO, l tablet 19:27: BID, 60 [place] 44 tab, Substituti on Allowed, TAB famotidine 2012-0 Yes Meilani H 20 mg, 1 Memoria 20 mg oral 6-15 [place] tab, PO, l tablet 19:27: BID, 60 [place] 44 tab, Substituti on Allowed, TAB famotidine 2012-0 Yes Meilani H 20 mg, 1 Memoria 20 mg oral 6-15 [place] tab, PO, l tablet 19:27: BID, 60 [place] 44 tab, Substituti on Allowed, TAB famotidine 2012-0 Yes Meilani H 20 mg, 1 Memoria 20 mg oral 6-15 [place] tab, PO, l tablet 19:27: BID, 60 [place] 44 tab, Substituti on Allowed, TAB famotidine 2012-0 Yes Meilani H 20 mg, 1 Memoria 20 mg oral 6-15 [place] tab, PO, l tablet 19:27: BID, 60 [place] 44 tab, Substituti on Allowed, TAB Colace 100 2011-0 Yes Meilani H 100 mg, 1 Memoria mg oral 6-15 [place] cap, PO, l capsule 19:27: BID, 60 [place] 40 cap, Substituti on Allowed, CAP Colace 100 2011-0 Yes Meilani H 100 mg, 1 Memoria mg oral 6-15 [place] cap, PO, l capsule 19:27: BID, 60 [place] 40 cap, Substituti on Allowed, CAP Colace 100 2011-0 Yes Meilani H 100 mg, 1 Memoria mg oral 6-15 [place] cap, PO, l capsule 19:27: BID, 60 [place] 40 cap, Substituti on Allowed, CAP Colace 100 2012-0 Yes Meilani H 100 mg, 1 Memoria mg oral 6-15 [place] cap, PO, l capsule 19:27: BID, 60 [place] 40 cap, Substituti on Allowed, CAP Colace 100 2012-0 Yes Meilani H 100 mg, 1 Memoria mg oral 6-15 [place] cap, PO, l capsule 19:27: BID, 60 [place] 40 cap, Substituti on Allowed, CAP Colace 100 2011-0 Yes Meilani H 100 mg, 1 Memoria mg oral 6-15 [place] cap, PO, l capsule 19:27: BID, 60 [place] 40 cap, Substituti on Allowed, CAP Plavix [...] tab, PO, l tablet 19:27: Daily, 30 [place] n 36 tab, Substituti on Allowed, TAB [...] 2011-0 No Marcial De 6.25 mg, Memoria 6- [place] Route: PO, l 02:00: Bedtime, [place] 00 Start date: 09/21/11 21:00:00, Duration: 30 day, Stop date: 10/20/11 21:00:00 Ambien 2012-0 No Marcial De 5 mg, 1 Me moria 6-09 [place] tab, l 02:00: Route: PO, [place] 00 Drug form: TAB, Bedtime, Start date: 09/21/11 21:00:00, Duration: 30 day, Stop date: 10/20/11 21:00:00 Ambien CR 2011-0 No Marcial De 6.25 mg, Memoria 6-09 [place] Route: PO, l 02:00: Bedtime, [place] 00 Start date: 09/21/11 21:00:00, Duration: 30 day, Stop date: 10/20/11 21:00:00 Ambien 2011-0 No Marcial De 5 mg, 1 Me moria 6-09 [place] tab, l 02:00: Route: PO, [place] 00 Drug form: TAB, Bedtime, Start date: [...] 6-09 [place] tab, l 02:00: Route: PO, [place] 00 Drug form: TAB, Bedtime, Start date: 09/21/11 21:00:00, Duration: 30 day, Stop date: 10/20/11 21:00:00 Ambien CR 2012-0 No Marcial De 6.25 mg, Memoria 6-09 [place] Route: PO, l 02:00: Bedtime, [place] Start date: 09/21/11 21:00:00, Duration: 30 day, Stop date: 10/20/11 21:00:00 Ambien 2012-0 No Marcila De 5 mg, 1 Me moria 6-09 [place] tab, l 02:00: Route: PO, [place] 00 Drug form: TAB, Bedtime, Start date: [...] 6-02 Jef supp, l 03:49: [place] Route: SD, Richard n 00 Drug form: SUPP, Bedtime, [...] 6-02 Jef supp, l 03:49: [place] Route: SD, Richard n 00 Drug form: SUPP, Bedtime, [...] Mem oria - Jef supp, l 03:49: Efarin Route: SD, Richard n 00 Drug form: SUPP, Bedtime, PRN Constipati on, Start date: 09/14/11 22:49:00, Duration: 30 day, Stop date: 10/14/11 22:48:00 zolpidem No Marcial De 5 mg, 1 Memoria -02 [place] tab, l 03:49: Route: PO, [place] 00 Drug form: TAB, Bedtime, PRN Insomnia, Start date: 09/14/11 22:49:00, Duration: 30 day, Stop date: 10/14/11 22:48:00 Saline 2011- No Jeff 3 mL, Memoria Flush 0.9% - Jef Route: l 03:49: [place] IVP, Drug [...] -02 Jef supp, l 03:49: [place] Route: SD, Richard n 00 Drug form: SUPP, Bedtime, PRN Constipati on, Start date: 09/14/11 22:49:00, Duration: 30 day, Stop date: 10/14/11 22:48:00 zolpidem 2011-0 No Marcial De 5 mg, 1 Memoria -02 [place] tab, l 03:49: Route: PO, [place] Drug form: TAB, Bedtime, PRN Insomnia, Start [...] -02 Jef supp, l 03:49: [place] Route: SD, Richard n 00 Drug form: SUPP, Bedtime, PRN Constipati on, Start date: 09/14/11 22:49:00, Duration: 30 day, Stop date: 10/14/11 22:48:00 zolpidem 2011-0 No Marcial De 5 mg, 1 Memoria 6-02 [place] tab, l 03:49: Route: PO, [place] Drug form: TAB, Bedtime, PRN Insomnia, Start date: 09/14/11 22:49:00, Duration: 30 day, Stop date: 10/14/11 22:48:00 Saline 2011- No Jeff 3 mL, Memoria Flush 0.9% - Jef Route: l 03:49: [place] IVP, Drug [place] 00 Form: INJ, Q8H, PRN Line Flush, [...] - Jef supp, l 03:49: [place] Route: SD, Richard n 00 Drug form: SUPP, Bedtime, PRN Constipati on, Start date: 09/14/11 22:49:00, Duration: 30 day, Stop date: 10/14/11 22:48:00 zolpidem 2011- No Marcial De 5 mg, 1 Memoria -02 [place] tab, l 03:49: Route: PO, [place] 00 Drug form: TAB, Bedtime, PRN Insomnia, [...] date: 10/14/11 9:00:00 Keppra 750 2011-0 No Ejff 750 mg, 3 M emoria mg oral 6-02 Jef tab, l tablet 02:00: [place] Route: POGris graham 00 Drug form: TAB, Q12H, Start date: 09/14/11 21:00:00, Duration: 30 day, Stop date: 10/14/11 9:00:00 Keppra 750 2011-0 No Jeff 750 mg, 3 M emoria mg oral 6-02 Jef tab, l tablet 02:00: [place] Route: POGris graham 00 Drug form: TAB, Q12H, Start date: 09/14/11 21:00:00, Duration: 30 day, Stop date: 10/14/11 9:00:00 Keppra 750 2011-0 No Jeff 750 mg, 3 M emoria mg oral 6-02 Jef tab, l tablet 02:00: [place] Route: POGris graham Drug form: TAB, Q12H, Start date: 09/14/11 21:00:00, Duration: 30 day, Stop date: 10/14/11 9:00:00 Keppra 750 2011-0 No Jeff 750 mg, 3 M emoria mg oral 6-02 Jef tab, l tablet 02:00: [place] Route: POGris graham 00 Drug form: TAB, Q12H, Start [...] Jef cap, l capsule 22:00: [place] Route: POHer maloney 00 Drug form: CAP, BID, Start date: 09/14/11 17:00:00, Duration: 30 day, Stop date: 10/14/11 9:00:00 atorvastati 2011-0 No Jeff 80 mg, 1 M emoria n 6-01 Jef tab, l 22:00: [place] Route: POGrisan n 00 Drug form: TAB, QPM, Start [...] capsule 22:00: [place] Route: PO, Her maloney Drug form: CAP, BID, Start date: [...] mg, 1 Me moria 20 mg oral 6 Jef tab, l tablet 22:00: [place] Route: [...] Jef mL, Route: l 20:00: [place] SUB-Q, [place] Drug form: INJ, Q24H, Start date: 09/14/11 [...] Jeff 1 tab, Memori a 5/325 oral 6 Jef Route: PO, l tablet 19:58: [place] [...] Systolic (mm Hg) 2011-10-01 10:34:00 Luan rial [place] Respitory Rate 2011-10-01 10:34:00 Memori al [place] Heart Rate 2011-10-01 10:34:00 [facility] [place] Temperature Oral (F) 2011-10-01 10:34:00 97.6 F [facility] [place] Diastolic (mm Hg) 2011-10-01 10:34:00 Mem orial [place] Diastolic (mm Hg) 2011-10-01 00:44:00 Mem orial [place] Respitory Rate 2011-10-01 00:44:00 Memori al [place] Heart Rate 2011-10-01 00:44:00 [facility] [place] Systolic (mm Hg) 2011-10-01 00:44:00 Luan rial [place] Temperature Oral (F) 2011-10-01 00:44:00 98.1 F [facility] [place] Systolic (mm Hg) 2011-09-30 21:00:00 Luan rial [place] Diastolic (mm Hg) 2011-09-30 21:00:00 Mem orial [place] Heart Rate 2011-09-30 21:00:00 [facility] [place] Respitory Rate 2011-09-30 21:00:00 Memori al [place] Temperature Oral (F) 2011-09-30 10:03:00 97.8 F [facility] Miguel Height 2011-09-15 03:49:00 172.72 cm Lety Rivera Weight 2011-09-15 03:49:00 [facility] Procedures This patient has no known procedures. Encounters Start End Encounter Admission Attending Care Care Encounter Source Date/Time Date/Time Type Type Clinicians Facility Department ID 2011-09-14 2011[facility]10[id number] Memoria 22:16:00 13:00:00 52 l [place] 2011-09-14 2011-10-01 [facility] [id number] Memoria 22:16:00 13:00:00 52 l [place] Results Test Description Test Time Test Comments Results Result Comments Source B-TYPE NATRIURETIC FACTOR (BNP) 2016-12-21 05:56:00 Test Item Value Reference Range Interpretation Comme nts B-TYPE NATRIURETIC PEPTIDE (BEAKER) (test code = 700) 136 pg/mL 0-100 H COMPREHENSIVE METABOLIC [id number] 05:53:00 Test Item Value Reference Range Interpretation [...] H (test code = 353) ALT (SGPT) ([facility]) 88 U/L 6-55 H (test code = 347) EGFR ([facility]) (test 139 ESTIMATE D GFR IS code = 1092) mL/min/1.73 sq NOT ACCURA TE m CREATININE CLEARANCE IN PREDICTING GLOMERULAR FILTRATION RATE . ESTIMATED GFR I S NOT APPLICABLE FOR DIALYSIS PATIEN TS. POCT-GLUCOSE [id number] 16:33:00 Test Item Value Reference Range Interpretation Comments POC-GLUCOSE METER 116 mg/dL 70-110 H TESTED AT [place] [address] ([facility]) (test code = TISHA Cazares [place] 1538) [id number] POCT-GLUCOSE [id number] 11:08:00 Test Item Value Reference Range Interpretation Comments POC-GLUCOSE METER 133 mg/dL 70-110 H TESTED AT [place] [address] ([facility]) (test code = TISHA Cazares [place] 1538) [id number] POCT-GLUCOSE [id number] 06:11:00 Test Item Value Reference Range Interpretation Comments POC-GLUCOSE METER 105 mg/dL 70-110 TESTED AT [place] [address] ([facility]) (test code = TISHA Cazares [place] 1538) [id number] POCT-GLUCOSE [id number] 20:28:00 Test Item Value Reference Range Interpretation Comments POC-GLUCOSE METER 124 mg/dL 70-110 H TESTED AT [place] [address] ([facility]) (test code = TISHA Cazares [place] 1538) [id number] POCT-GLUCOSE [id number] 16:46:00 Test Item Value Reference Range Interpretation Comments POC-GLUCOSE METER 113 mg/dL 70-110 H TESTED AT [place] [address] ([facility]) (test code = ANTHONYTN Sage [place] 1538) [id number] POCT-GLUCOSE [id number] 11:46:00 Test Item Value Reference Range Interpretation Comments POC-GLUCOSE METER 113 mg/dL 70-110 H TESTED AT [place] [address] ([facility]) (test code = TISHA Cazares [place] 1538) [id number] URINE [id number] 09:54:00 Test Item Value Reference Range Interpretation Comments CULTURE ([facility]) (test KLEBSIELLA A >100, 000 col/mL [...] S Sulfamethoxazole (test code = 47) POCT-GLUCOSE [id number] 06:46:00 Test Item Value Reference Range Interpretation Comments POC-GLUCOSE METER 111 mg/dL 70-110 H TESTED AT [place] [address] ([facility]) (test code = [facility] 1538) [id number] POCT-GLUCOSE [id number] 20:48:00 Test Item Value Reference Range Interpretation Comments POC-GLUCOSE METER 128 mg/dL 70-110 H TESTED AT [place] [address] ([facility]) (test code = [facility] 1538) [id number] POCT-GLUCOSE [id number] 16:00:00 Test Item Value Reference Range Interpretation Comments POC-GLUCOSE METER 127 mg/dL 70-110 H TESTED AT [place] [address] ([facility]) (test code = [facility] 1538) [id number] POCT-GLUCOSE [id number] 11:16:00 Test Item Value Reference Range Interpretation Comments POC-GLUCOSE METER 273 mg/dL 70-110 H TESTED AT [place] [address] ([facility]) (test code = [facility] 1538) [id number] COMPREHENSIVE METABOLIC [id number] 06:44:00 Test Item Value Reference Range Interpretation Comments TOTAL PROTEIN 6.4 gm/dL 6.0-8.3 ([facility]) (test code = 770) ALBUMIN ([facility]) 2.9 g/dL 3.5-5.0 L (test code = 1145) ALKALINE PHOSPHATASE 109 U/L 40-150 ([facility]) (test code = 346) BILIRUBIN TOTAL [...] S NOT APPLICABLE FOR DIALYSIS PATIEN TS. [id number] 06:27:00 Test Item Value Reference Range Interpretation Comments PARTIAL THROMBOPLASTIN TIME 38.5 seconds 22.5-36.0 H (BEAKER) (test code = 760) PROTHROMBIN [id number] 06:26:00 Test Item Value Reference Range Interpretation [...] mechanical heart valves.CBC W/PLT COUNT & AUTO [id number] 06:25:00 Test Item Value Reference Range Interpretation [...] PERCENT (BEAKER) (test code = 2801) POCT-GLUCOSE [id number] 06:22:00 Test Item Value Reference Range Interpretation Comments POC-GLUCOSE METER 131 mg/dL 70-110 H TESTED AT [place] [address] (BEAKER) (test code = ANTHONYERIK Cazares [facility] 1538) [id number] URINALYSIS W/ [id number] 20:35:00 Test Item Value Reference Range Interpretation [...] code Urine, Clean Catch = 2795) POCT-GLUCOSE [id number] 20:21:00 Test Item Value Reference Range Interpretation Comments POC-GLUCOSE METER 132 mg/dL 70-110 H TESTED AT [place] [address] (BEAKER) (test code = ANTHONYERIK Cazares [facility] 1538) [id number] POCT-GLUCOSE [id number] 16:17:00 Test Item Value Reference Range Interpretation Comments POC-GLUCOSE METER 101 mg/dL 70-110 TESTED AT [place] [address] (BEAKER) (test code = TISHA Cazares [facility] 1538) [id number] POCT-GLUCOSE [id number] 13:35:00 Test Item Value Reference Range Interpretation Comments POC-GLUCOSE METER 143 mg/dL 70-110 H TESTED AT [place] [address] (BEAKER) (test code = BERTNE R [facility] 3312) [id number] BASIC METABOLIC [id number] 06:31:00 Test Item Value Reference Range Interpretation [...] APPLICABLE FOR DIALYSIS PATIEN TS. BASIC METABOLIC [id number] 05:41:00 Test Item Value Reference Range Interpretation [...] 0-0 (BEAKER) (test code = 413) VITAMIN [id number] 06:04:00 Test Item Value Reference Range Interpretation Comments VITAMIN B12 (BEAKER) (test code = 619 pg/mL 213-816 774) [id number] 06:04:00 Test Item Value Reference Range Interpretation Comments FERRITIN (BEAKER) (test code = 361) 335 ng/mL 5-275 H Effective 03/02/2014: Reference Range ChangeNew: Male 5-275 Previous: Male 22- 322 Female 5-275 Female 10-291FOLATE, [id number] 06:04:00 Test Item Value Reference Range Interpretation Comments FOLATE (BEAKER) (test code = 362) 4.9 ng/mL >=7.0 L Effective 03/02/2014: Folate Reference Range ChangeNew: >=7.0 Previous: >=5.4BASIC METABOLIC [id number] 05:47:00 Test Item Value Reference Range Interpretation [...] (BEAKER) (test code = 413) BASIC METABOLIC [id number] 05:53:00 Test Item Value Reference Range Interpretation [...] WBC 0-0 (BEAKER) (test code = 413) [id number] 22:53:00 Test Item Value Reference Range Interpretation Comments ACTIVATED CLOTTING TIME 153 sec TEST ED AT [place] [address] ([facility]) (test code = TISHA Cazares [place] 441) [id number] 22:35:00 Test Item Value Reference Range Interpretation Comments ACTIVATED CLOTTING TIME 202 sec TEST ED AT [place] [address] ([facility]) (test code = TISHA Cazares [facility] 441) [id number] 22:04:00 Test Item Value Reference Range Interpretation [...] (BEAKER) (test code = 413) BASIC METABOLIC [id number] 08:43:00 Test Item Value Reference Range Interpretation [...] (BEAKER) (test code = 413) BASIC METABOLIC [id number] 06:44:00 Test Item Value Reference Range Interpretation [...] PATIEN TS. CBC W/PLT COUNT & AUTO [id number] 21:33:00 Test Item Value Reference Range Interpretation [...] 0-1 PERCENT (BEAKER) (test code = 2801) [id number] 07:21:00 Test Item Value Reference Range Interpretation Comments PHOSPHORUS (BEAKER) (test code = 3.6 mg/dL 2.3-4.7 604) [id number] 07:21:00 Test Item Value Reference Range Interpretation Comments MAGNESIUM (BEAKER) (test code = 1.9 mg/dL 1.6-2.6 627) COMPREHENSIVE METABOLIC [id number] 07:21:00 Test Item Value Reference Range Interpretation [...] code = 413) PHENYTOIN LEVEL, TOTAL AND [id number] 01:14:00 Test Item Value Reference Range Interpretation Comments PHENYTOIN (DILANTIN) (BEAKER) 22.9 ug/mL 10.0-20.0 H (test code = 605) PHENYTOIN FREE (BEAKER) (test 3.51 mcg/ml 1.00-2.00 H code = 847) VALPROIC ACID LEVEL, [id number] 20:49:00 Test Item Value Reference Range Interpretation Comments VALPROIC ACID TOTAL (BEAKER) (test 33 ug/mL 50-100 L code = 924) Therapeutic range for some clinical conditions may be >100 ug/mLPOCT-GLUCOSE [id number] 17:10:00 Test Item Value Reference Range Interpretation Comments POC-GLUCOSE METER 108 mg/dL 70-110 TESTED AT [facility] 6720 (BEAKER) (test code = TISHA [place] 1538) [id number] PHENYTOIN LEVEL, [id number] 12:29:00 Test Item Value Reference Range Interpretation Comments PHENYTOIN (DILANTIN) (BEAKER) 16.3 ug/mL 10.0-20.0 (test code = 605) CREATINE KINASE (CK), TOTAL AND [id number] 12:26:00 Test Item Value Reference Range Interpretation Comments CREATINE KINASE TOTAL (BEAKER) 47 U/L 29-200 (test code = 380) CREATINE KINASE-MB (BEAKER) (test 1.1 ng/mL 0.0-6.6 code = 750) CREATINE KINASE-MB INDEX (BEAKER) 2.3 % (test code = 395) Effective 03/02/2014: CK-MB Reference Range ChangeNew: 0.0-6.6 Previous: 0.0-4.9CK-MB Reference Range:<6.7 Normal6.7-10.0 Borderline>10.0 Abnormal TROPONIN [id number] 12:26:00 Test Item Value Reference Range Interpretation [...] failure, acidosis, acute neurological disease, and persistent tachyarrhythmia.[id number] 12:17:00 Test Item Value Reference Range Interpretation Comments MAGNESIUM (BEAKER) (test code = 2.0 mg/dL 1.6-2.6 627) COMPREHENSIVE METABOLIC [id number] 12:17:00 Test Item Value Reference Range Interpretation [...] PATIEN TS. CBC W/PLT COUNT & AUTO [id number] 11:55:00 Test Item Value Reference Range Interpretation [...] PERCENT (BEAKER) (test code = 2801) URINE [id number] 11:55:00 Test Item Value Reference Range Interpretation Comments CULTURE (BEAKER) (test code = 1095) No growth BLOOD GAS, [id number] 10:28:00 Test Item Value Reference Range Interpretation [...] (test code = 1819) 32.0 % POCT-GLUCOSE [id number] 09:53:00 Test Item Value Reference Range Interpretation Comments POC-GLUCOSE METER 184 mg/dL 70-110 H TESTED AT [facility] 6720 (BEAKER) (test code = TISHA ARCE 1538) [address] TROPONIN [id number] 22:44:00 Test Item Value Reference Range Interpretation [...] acidosis, acute neurological disease, and persistent tachyarrhythmia.TROPONIN [id number] 15:17:00 Test Item Value Reference Range Interpretation [...] MORPHOLOGY (BEAKER) (test code = Normal 762) [id number] 07:06:00 Test Item Value Reference Range Interpretation Comments PHOSPHORUS (BEAKER) (test code = 2.5 mg/dL 2.3-4.7 604) [id number] 07:06:00 Test Item Value Reference Range Interpretation Comments MAGNESIUM (BEAKER) (test code = 2.0 mg/dL 1.6-2.6 627) COMPREHENSIVE METABOLIC [id number] 07:06:00 Test Item Value Reference Range Interpretation [...] NOT APPLICABLE FOR DIALYSIS PATIEN TS. PROTHROMBIN [id number] 06:40:00 Test Item Value Reference Range Interpretation Comments PROTIME (BEAKER) (test code = 12.5 seconds 11.7-14.7 759) INR (BEAKER) (test code = 370) 1.0 <=5.9 RECOMMENDED COUMADIN/WARFARIN INR THERAPY RANGESSTANDARD DOSE: 2.0 - 3.0 Includes: PROPHYLAXIS for venous thrombosis, systemic embolization; TREATMENT for venous thrombosis and/or pulmonary embolus.HIGH RISK: Target INR is 2.5-3.5 for patients with mechanical heart valves.URINALYSIS W/ [id number] 06:18:00 Test Item Value Reference Range Interpretation [...] 516) SOURCE(BEAKER) (test code = Urine, Voided 5447) COMPREHENSIVE METABOLIC [id number] 05:47:00 Test Item Value Reference Range Interpretation [...] (BEAKER) (test code = 413) COMPREHENSIVE METABOLIC [id number] 10:08:00 Test Item Value Reference Range Interpretation [...] 0-0 (BEAKER) (test code = 413) POCT-GLUCOSE [id number] 12:08:00 Test Item Value Reference Range Interpretation Comments POC-GLUCOSE METER 111 mg/dL 70-110 H TESTED AT [place] [address] ([facility]) (test code = TISHA HINES [place] 1538) [address] POCT-GLUCOSE [id number] 08:40:00 Test Item Value Reference Range Interpretation Comments POC-GLUCOSE METER 184 mg/dL 70-110 H TESTED AT [place] [address] ([facility]) (test code = TISHA HINES [place] 1538) [address] [id number] 05:57:00 Test Item Value Reference Range Interpretation Comments MAGNESIUM (BEAKER) (test code = 2.1 mg/dL 1.6-2.6 627) BASIC METABOLIC [id number] 05:57:00 Test Item Value Reference Range Interpretation [...] 0-0 (BEAKER) (test code = 413) POCT-GLUCOSE [id number] 21:18:00 Test Item Value Reference Range Interpretation Comments POC-GLUCOSE METER 118 mg/dL 70-110 H TESTED AT [facility] [address] ([facility]) (test code = TISHA ARCE 1538) [address] POCT-GLUCOSE [id number] 17:33:00 Test Item Value Reference Range Interpretation Comments POC-GLUCOSE METER 102 mg/dL 70-110 TESTED AT [facility] [address] (BEAKER) (test code = [facility] 1538) [address] POCT-GLUCOSE [id number] 12:06:00 Test Item Value Reference Range Interpretation Comments POC-GLUCOSE METER 188 mg/dL 70-110 H TESTED AT [facility] 67[address] (BEAKER) (test code = [facility] 1538) [address] POCT-GLUCOSE [id number] 08:31:00 Test Item Value Reference Range Interpretation Comments POC-GLUCOSE METER 109 mg/dL 70-110 TESTED AT [facility] 67[address] (BEAKER) (test code = [facility] 1538) [address] [id number] 06:07:00 Test Item Value Reference Range Interpretation Comments MAGNESIUM (BEAKER) (test code = 2.0 mg/dL 1.6-2.6 627) BASIC METABOLIC [id number] 06:07:00 Test Item Value Reference Range Interpretation [...] S NOT APPLICABLE FOR DIALYSIS PATIEN TS. [id number] 05:40:00 Test Item Value Reference Range Interpretation [...] 0-0 (BEAKER) (test code = 413) POCT-GLUCOSE [id number] 21:01:00 Test Item Value Reference Range Interpretation Comments POC-GLUCOSE METER 118 mg/dL 70-110 H TESTED AT [place] [address] ([facility]) (test code = TISHA Cazares [facility] 1538) [address] POCT-GLUCOSE [id number] 18:51:00 Test Item Value Reference Range Interpretation Comments POC-GLUCOSE METER 117 mg/dL 70-110 H TESTED AT [place] [address] ([facility]) (test code = TISHA Caazres [facility] 1538) [address] POCT-GLUCOSE [id number] 14:02:00 Test Item Value Reference Range Interpretation Comments POC-GLUCOSE METER 129 mg/dL 70-110 H TESTED AT [facility] 67[address] (BEAKER) (test code = T[place] AR[place] 1538) [address] [id number] 04:19:00 Test Item Value Reference Range Interpretation Comments MAGNESIUM (BEAKER) (test code = 1.8 mg/dL 1.6-2.6 627) BASIC METABOLIC [id number] 04:19:00 Test Item Value Reference Range Interpretation [...] S NOT APPLICABLE FOR DIALYSIS PATIEN TS. [id number] 04:13:00 Test Item Value Reference Range Interpretation [...] heart valves.Prior to initiating heparinPrior to initiating [id number] 04:13:00 Test Item Value Reference Range Interpretation Comments PARTIAL THROMBOPLASTIN TIME 42.4 seconds 22.5-36.0 H (BEAKER) (test code = 760) LACTIC ACID, ARTERIAL, WHOLE [id number] 04:09:00 Test Item Value Reference Range Interpretation [...] 0-0 (BEAKER) (test code = 413) CALCIUM, [id number] 03:54:00 Test Item Value Reference Range Interpretation Comments CALCIUM IONIZED (BEAKER) (test 1.14 mmol/L 1.12-1.27 code = 698) PH, BLOOD (BEAKER) (test code = 7.49 1810) BLOOD GAS, [id number] 03:54:00 Test Item Value Reference Range Interpretation [...] (test code = 1819) 36.0 % POCT-GLUCOSE [id number] 17:32:00 Test Item Value Reference Range Interpretation Comments POC-GLUCOSE METER 121 mg/dL 70-110 H TESTED AT [place] [address] ([facility]) (test code = [facility] 1538) [address] PLATELET AGGREGATION: FUNCTION [id number] 14:46:00 Test Item Value Reference Range Interpretation Comments WEAK ADP 82 % 60-91 RESULT([facility]) (test code = 2135) PLATELET FUNCTION 60-100% indicates SCREEN INTERP ([facility]) normal platelet (test code = 2173) function [id number] Mari Phelan MD ([facility]) (test code = (electronic signature) 4560) PLATELET COUNT AGG 221 K/CU MM 150-450 ([facility]) (test code = 2656) POCT-GLUCOSE [id number] 12:58:00 Test Item Value Reference Range Interpretation Comments POC-GLUCOSE METER 129 mg/dL 70-110 H TESTED AT [facility] 67 ([facility]) (test code = [facility] 1538) [address] HEMOGLOBIN [id number] 09:09:00 Test Item Value Reference Range Interpretation Comments HEMOGLOBIN A1C ([facility]) (test code = 5.1 % 4.3-6.1 368) BLOOD GAS, [id number] 06:57:00 Test Item Value Reference Range Interpretation [...] (test code = 1819) 40.0 % POCT-GLUCOSE [id number] 06:01:00 Test Item Value Reference Range Interpretation Comments POC-GLUCOSE METER 154 mg/dL 70-110 H TESTED AT [facility] 67[address] (BEAKER) (test code = TISHA HINES [place] 1538) [address] [id number] 05:02:00 Test Item Value Reference Range Interpretation Comments MAGNESIUM (BEAKER) (test code = 2.0 mg/dL 1.6-2.6 627) BASIC METABOLIC [id number] 05:02:00 Test Item Value Reference Range Interpretation [...] S NOT APPLICABLE FOR DIALYSIS PATIEN TS. [id number] 04:56:00 Test Item Value Reference Range Interpretation [...] mechanical heart valves.CBC W/PLT COUNT & AUTO [id number] 04:54:00 Test Item Value Reference Range Interpretation [...] code = 2801) LACTIC ACID, ARTERIAL, WHOLE [id number] 04:39:00 Test Item Value Reference Range Interpretation Comments LACTATE BLOOD ARTERIAL (2) 1.2 mmol/L 0.5-2.2 (BEAKER) (test code = 2874) Effective 08/17/2015: Units/Reference Range ChangeNew: 0.5-2.2 mmol/L Previous: 5- 20 mg/dLCALCIUM, [id number] 04:11:00 Test Item Value Reference Range Interpretation Comments CALCIUM IONIZED (BEAKER) (test 1.17 mmol/L 1.12-1.27 code = 698) PH, BLOOD (BEAKER) (test code = 7.44 1810) BLOOD GAS, [id number] 04:11:00 Test Item Value Reference Range Interpretation [...] code = 1819) 40.0 % OXYGEN SATURATION, [id number] 04:09:00 Test Item Value Reference Range Interpretation Comments O2 SATURATION (MEASURED) (BEAKER) 80.7 % (test code = 1455) POCT-GLUCOSE [id number] 02:46:00 Test Item Value Reference Range Interpretation Comments POC-GLUCOSE METER 150 mg/dL 70-110 H TESTED AT [facility] 67 (BEAKER) (test code = [facility] 1538) [address] POCT-GLUCOSE [id number] 18:29:00 Test Item Value Reference Range Interpretation Comments POC-GLUCOSE METER 111 mg/dL 70-110 H TESTED AT [facility] 67 ([facility]) (test code = [facility] 1538) [address] [id number] 16:27:00 Test Item Value Reference Range Interpretation Comments POTASSIUM (BEAKER) (test code = 4.2 meq/L 3.5-5.1 379) [id number] 16:27:00 Test Item Value Reference Range Interpretation Comments MAGNESIUM (BEAKER) (test code = 2.1 mg/dL 1.6-2.6 627) [id number] 16:27:00 Test Item Value Reference Range Interpretation Comments SODIUM (BEAKER) (test code = 381) 141 meq/L 136-145 BASIC METABOLIC [id number] 16:27:00 Test Item Value Reference Range Interpretation [...] DIALYSIS PATIEN TS. LACTIC ACID, ARTERIAL, WHOLE [id number] 16:23:00 Test Item Value Reference Range Interpretation Comments LACTATE BLOOD 1.8 mmol/L 0.5-2.2 Specimen sligh tly ARTERIAL (2) (BEAKER) hemoly zed (test code = 2874) Effective 08/17/2015: Units/Reference Range ChangeNew: 0.5-2.2 mmol/L Previous: 5- 20 mg/dLPT/[id number] 16:18:00 Test Item Value Reference Range Interpretation [...] for patients with mechanical heart valves.HEMOGLOBIN AND [id number] 16:10:00 Test Item Value Reference Range Interpretation [...] (BEAKER) (test code = 413) BLOOD GAS, [id number] 16:03:00 Test Item Value Reference Range Interpretation [...] (test code = 1819) 60.0 % CALCIUM, [id number] 16:03:00 Test Item Value Reference Range Interpretation Comments CALCIUM IONIZED (BEAKER) (test 1.18 mmol/L 1.12-1.27 code = 698) PH, BLOOD (BEAKER) (test code = 7.36 1810) OXYGEN SATURATION, [id number] 16:02:00 Test Item Value Reference Range Interpretation Comments O2 SATURATION (MEASURED) (BEAKER) 82.9 % (test code = 1455) [id number] 15:26:00 Test Item Value Reference Range Interpretation Comments ACTIVATED CLOTTING TIME 120 sec TEST ED AT [place] [address] ([facility]) (test code = T[place]HA HIN[place] 441) [address] [id number] 15:26:00 Test Item Value Reference Range Interpretation Comments ACTIVATED CLOTTING TIME 802 sec TEST ED AT [place] [address] ([facility]) (test code = TISHA HIN[place] 441) [address] [id number] 15:26:00 Test Item Value Reference Range Interpretation Comments ACTIVATED CLOTTING TIME 884 sec TEST ED AT [place] [address] ([facility]) (test code = TISHA HIN[place] 441) [address] [id number] 15:26:00 Test Item Value Reference Range Interpretation Comments ACTIVATED CLOTTING TIME 621 sec TEST ED AT [place] [address] ([facility]) (test code = T[place] HIN[place] 441) [address] THROMBOELASTOGRAPH (TEG)[id number] 14:00:00 Test Item Value Reference [...] MM 55.0-65.0 H (test code = 1413) [id number] 13:28:00 Test Item Value Reference Range Interpretation Comments FIBRINOGEN LEVEL (BEAKER) (test 458 mg/dl 225-434 H code = 658) [id number] 13:28:00 Test Item Value Reference Range Interpretation Comments PARTIAL THROMBOPLASTIN TIME 39.7 seconds 22.5-36.0 H (BEAKER) (test code = 760) PROTHROMBIN [id number] 13:27:00 Test Item Value Reference Range Interpretation Comments PROTIME (BEAKER) (test code = 17.4 seconds 11.7-14.7 H 759) INR (BEAKER) (test code = 370) 1.4 <=5.9 RECOMMENDED COUMADIN/WARFARIN INR THERAPY RANGESSTANDARD DOSE: 2.0 - 3.0 Includes: PROPHYLAXIS for venous thrombosis, systemic embolization; TREATMENT for venous thrombosis and/or pulmonary embolus.HIGH RISK: Target INR is 2.5-3.5 for patients with mechanical heart valves.PLATELET [id number] 13:21:00 Test Item Value Reference Range Interpretation Comments PLATELET COUNT 151 K/CU MM 150-450 Discordant re sult (BEAKER) (test code compared to previous = 756) result; clinica l correlation req uired. CALCIUM, [id number] 13:06:00 Test Item Value Reference Range Interpretation Comments CALCIUM IONIZED (BEAKER) (test 1.07 mmol/L 1.12-1.27 L code = 698) PH, BLOOD (BEAKER) (test code = 7.31 1810) SODIUM NA-STAT [id number] 13:05:00 Test Item Value Reference Range Interpretation Comments SODIUM (BEAKER) (test code = 381) 135 meq/L 135-148 POTASSIUM-STAT [id number] 13:05:00 Test Item Value Reference Range Interpretation Comments POTASSIUM (BEAKER) (test code = 4.4 meq/L 3.6-5.5 379) BLOOD GAS, [id number] 13:05:00 Test Item Value Reference Range Interpretation [...] (test code = 1819) 67.0 % GLUCOSE-STAT [id number] 13:05:00 Test Item Value Reference Range Interpretation Comments GLUCOSE RANDOM (BEAKER) (test code 145 mg/dL 70-110 H = 652) HGB/HCT (H&H) - STAT [id number] 13:05:00 Test Item Value Reference Range Interpretation Comments HEMOGLOBIN (BEAKER) (test code = 10.2 g/dL 13.0-16.8 L 410) HEMATOCRIT (BEAKER) (test code = 30.0 % 40.0-50.0 L 411) BLOOD GAS, [id number] 12:26:00 Test Item Value Reference Range Interpretation [...] (test code = 1819) 65.0 % GLUCOSE-STAT [id number] 12:26:00 Test Item Value Reference Range Interpretation Comments GLUCOSE RANDOM (BEAKER) (test code 132 mg/dL 70-110 H = 652) HGB/HCT (H&H) - STAT [id number] 12:26:00 Test Item Value Reference Range Interpretation Comments HEMOGLOBIN (BEAKER) (test code = 10.6 g/dL 13.0-16.8 L 410) HEMATOCRIT (BEAKER) (test code = 31.0 % 40.0-50.0 L 411) SODIUM NA-STAT [id number] 12:25:00 Test Item Value Reference Range Interpretation Comments SODIUM (BEAKER) (test code = 381) 136 meq/L 135-148 POTASSIUM-STAT [id number] 12:25:00 Test Item Value Reference Range Interpretation Comments POTASSIUM (BEAKER) (test code = 4.4 meq/L 3.6-5.5 379) BLOOD GAS, [id number] 12:03:00 Test Item Value Reference Range Interpretation [...] (test code = 1819) 65.0 % POTASSIUM-STAT [id number] 12:00:00 Test Item Value Reference Range Interpretation Comments POTASSIUM (BEAKER) (test code = 4.7 meq/L 3.6-5.5 379) BLOOD GAS, [id number] 12:00:00 Test Item Value Reference Range Interpretation [...] (test code = 1819) 65.0 % GLUCOSE-STAT [id number] 12:00:00 Test Item Value Reference Range Interpretation Comments GLUCOSE RANDOM (BEAKER) (test code 140 mg/dL 70-110 H = 652) HGB/HCT (H&H) - STAT [id number] 12:00:00 Test Item Value Reference Range Interpretation Comments HEMOGLOBIN (BEAKER) (test code = 10.4 g/dL 13.0-16.8 L 410) HEMATOCRIT (BEAKER) (test code = 31.0 % 40.0-50.0 L 411) SODIUM NA-STAT [id number] 12:00:00 Test Item Value Reference Range Interpretation Comments SODIUM (BEAKER) (test code = 381) 131 meq/L 135-148 L PLATELET AGGREGATION: FUNCTION [id number] 11:08:00 Test Item Value Reference Range Interpretation Comments WEAK ADP 76 % 60-91 RESULT(BEAKER) (test code = 2135) PLATELET FUNCTION 60-100% indicates SCREEN INTERP (BEAKER) normal platelet (test code = 2173) function [id number] Mari Phelan MD (BEAKER) (test code = (electronic signature) 7925) PLATELET COUNT AGG 222 K/CU MM 150-450 (BEAKER) (test code = 2656) for patients on clopidogrel in past two weeksHEMOGLOBIN [id number] 08:57:00 Test Item Value Reference Range Interpretation Comments HEMOGLOBIN A1C (BEAKER) (test code = 5.0 % 4.3-6.1 368) CBC W/PLT COUNT & AUTO [id number] 05:54:00 Test Item Value Reference Range Interpretation [...] 0-1 PERCENT (BEAKER) (test code = 2801) [id number] 05:37:00 Test Item Value Reference Range Interpretation Comments PARTIAL THROMBOPLASTIN TIME 56.5 seconds 22.5-36.0 H (BEAKER) (test code = 760) BASIC METABOLIC [id number] 05:33:00 Test Item Value Reference Range Interpretation [...] NOT APPLICABLE FOR DIALYSIS PATIEN TS. PROTHROMBIN [id number] 05:33:00 Test Item Value Reference Range Interpretation Comments PROTIME (BEAKER) (test code = 13.3 seconds 11.7-14.7 759) INR (BEAKER) (test code = 370) 1.0 <=5.9 RECOMMENDED COUMADIN/WARFARIN INR THERAPY RANGESSTANDARD DOSE: 2.0 - 3.0 Includes: PROPHYLAXIS for venous thrombosis, systemic embolization; TREATMENT for venous thrombosis and/or pulmonary embolus.HIGH RISK: Target INR is 2.5-3.5 for patients with mechanical heart valves.[id number] 19:22:00 Test Item Value Reference Range Interpretation Comments PARTIAL THROMBOPLASTIN TIME 37.4 seconds 22.5-36.0 H (BEAKER) (test code = 760) PROTHROMBIN [id number] 19:21:00 Test Item Value Reference Range Interpretation Comments PROTIME (BEAKER) (test code = 12.8 seconds 11.7-14.7 759) INR (BEAKER) (test code = 370) 1.0 <=5.9 RECOMMENDED COUMADIN/WARFARIN INR THERAPY RANGESSTANDARD DOSE: 2.0 - 3.0 Includes: PROPHYLAXIS for venous thrombosis, systemic embolization; TREATMENT for venous thrombosis and/or pulmonary embolus.HIGH RISK: Target INR is 2.5-3.5 for patients with mechanical heart valves.[id number] 11:49:00 Test Item Value Reference Range Interpretation Comments PARTIAL THROMBOPLASTIN TIME 34.7 seconds 22.5-36.0 (BEAKER) (test code = 760) Prior to initiating heparinPLATELET [id number] 11:31:00 Test Item Value Reference Range Interpretation Comments PLATELET COUNT (BEAKER) (test 199 K/CU MM 150-450 code = 756) PLATELET AGGREGATION: FUNCTION [id number] 11:12:00 Test Item Value Reference Range Interpretation Comments WEAK ADP 90 % 60-91 RESULT(BEAKER) (test code = 2135) PLATELET FUNCTION 60-100% indicates SCREEN INTERP ([facility]) normal platelet (test code = 2173) function [id number] Mari Phelan MD ([facility]) (test code = (electronic signature) 2683) PLATELET COUNT AGG 200 K/CU MM 150-450 (BEAKER) (test code = 2656) HEMOGLOBIN [id number] 08:38:00 Test Item Value Reference Range Interpretation Comments HEMOGLOBIN A1C (BEAKER) (test code = 5.5 % 4.3-6.1 368) TROPONIN [id number] 08:35:00 Test Item Value Reference Range Interpretation [...] 0.0-4.9CK-MB Reference Range:<6.7 Normal6.7-10.0 Borderline>10.0 Abnormal POCT-GLUCOSE [id number] 08:23:00 Test Item Value Reference Range Interpretation Comments POC-GLUCOSE METER 104 mg/dL 70-110 TESTED AT [facility] 6720 (BEAKER) (test code = TISHA HIN[place] 1538) [address] PROTHROMBIN [id number] 04:32:00 Test Item Value Reference Range Interpretation Comments PROTIME (BEAKER) (test code = 13.5 seconds 11.7-14.7 759) INR (BEAKER) (test code = 370) 1.0 <=5.9 RECOMMENDED COUMADIN/WARFARIN INR THERAPY RANGESSTANDARD DOSE: 2.0 - 3.0 Includes: PROPHYLAXIS for venous thrombosis, systemic embolization; TREATMENT for venous thrombosis and/or pulmonary embolus.HIGH RISK: Target INR is 2.5-3.5 for patients with mechanical heart valves.[id number] 02:13:00 Test Item Value Reference Range Interpretation Comments PHOSPHORUS (BEAKER) (test code = 3.9 mg/dL 2.3-4.7 604) [id number] 02:13:00 Test Item Value Reference Range Interpretation Comments MAGNESIUM (BEAKER) (test code = 2.1 mg/dL 1.6-2.6 627) BASIC METABOLIC [id number] 02:13:00 Test Item Value Reference Range Interpretation [...] PATIEN TS. CBC W/PLT COUNT & AUTO [id number] 01:44:00 Test Item Value Reference Range Interpretation [...] 417) IMMATURE GRANULOCYTES-RELATIVE 0 % 0-1 PERCENT ([facility]) (test code = 2801) [id number] 01:31:00 Test Item Value Reference Range Interpretation Comments PROTIME (BEAKER) (test code = 13.1 seconds 11.7-14.7 759) INR (BEAKER) (test code = 370) 1.0 <=5.9 PARTIAL THROMBOPLASTIN TIME 35.3 seconds 22.5-36.0 (ARAMISAKER) (test code = 760) RECOMMENDED COUMADIN/WARFARIN INR THERAPY RANGESSTANDARD DOSE: 2.0 - 3.0 Includes: PROPHYLAXIS for venous thrombosis, systemic embolization; TREATMENT for venous thrombosis and/or pulmonary embolus.HIGH RISK: Target INR is 2.5-3.5 for patients with mechanical heart valves.TROPONIN [id number] 00:46:00 Test Item Value Reference Range Interpretation Comments TROPONIN I ([facility]) (test code = 0.51 ng/mL 0.00-0.03 HH [...] 0.0-6.6 code = 750) CREATINE KINASE-MB INDEX (ARAMISAKER) 4.8 % (test code = 395) Effective 03/02/2014: CK-MB Reference Range ChangeNew: 0.0-6.6 Previous: 0.0-4.9CK-MB Reference Range:<6.7 Normal6.7-10.0 Borderline>10.0 Abnormal [id number] 06:58:00 Test Item Value Reference Range Interpretation Comments PHOSPHORUS (BEAKER) (test code = 3.7 mg/dL 2.3-4.7 604) [id number] 06:58:00 Test Item Value Reference Range Interpretation Comments MAGNESIUM (BEAKER) (test code = 1.9 mg/dL 1.6-2.6 627) BASIC METABOLIC [id number] 06:58:00 Test Item Value Reference Range Interpretation [...] S NOT APPLICABLE FOR DIALYSIS PATIEN TS. [id number] 06:36:00 Test Item Value Reference Range Interpretation Comments PHOSPHORUS (BEAKER) (test code = 4.1 mg/dL 2.3-4.7 604) [id number] 06:36:00 Test Item Value Reference Range Interpretation Comments MAGNESIUM (BEAKER) (test code = 2.0 mg/dL 1.6-2.6 627) BASIC METABOLIC [id number] 06:36:00 Test Item Value Reference Range Interpretation [...] S NOT APPLICABLE FOR DIALYSIS PATIEN TS. [id number] 15:50:00 Test Item Value Reference Range Interpretation Comments RPR SCREEN (BEAKER) (test code = Nonreactive Nonreactive 420) HEMOGLOBIN [id number] 10:29:00 Test Item Value Reference Range Interpretation Comments HEMOGLOBIN A1C (BEAKER) (test code = 5.4 % 4.3-6.1 368) VITAMIN B12 AND [id number] 09:21:00 Test Item Value Reference Range Interpretation Comments VITAMIN B12 (BEAKER) (test code = 335 pg/mL 213-816 774) FOLATE (BEAKER) (test code = 362) 36.6 ng/mL >=7.0 Effective 03/02/2014: Folate Reference Range ChangeNew: >=7.0 Previous: >=5.4CBC W/PLT COUNT & AUTO [id number] 08:15:00 Test Item Value Reference Range Interpretation [...] (test code = 417) 0.00TSH/FREE T4 IF [id number] 08:00:00 Test Item Value Reference Range Interpretation Comments THYROID STIMULATING HORMONE 1.39 uIU/mL 0.35-4.94 (BEAKER) (test code = 772) BASIC METABOLIC [id number] 07:26:00 Test Item Value Reference Range Interpretation [...] code = 1092) mL/min/1.73 sq DATA TO KATIEU KERRY m ESTIMATED GFR. LIPID [id number] 07:26:00 Test Item Value Reference Range Interpretation [...] (test code = 3.8 mg/dL 2.3-4.7 604) [id number] 07:25:00 Test Item Value Reference Range Interpretation Comments MAGNESIUM (BEAKER) (test code = 2.0 mg/dL 1.6-2.6 627) URINALYSIS W/ [id number] 19:16:00 Test Item Value Reference Range Interpretation [...] 520) SOURCE(BEAKER) (test code = Urine, Voided 4014) BLOOD [id number] 11:00:00 Test Item Value Reference Range Interpretation Comments CULTURE (BEAKER) (test No growth in 5 days code = 1095) BLOOD [id number] 11:00:00 Test Item Value Reference Range Interpretation Comments CULTURE (BEAKER) (test No growth in 5 days code = 1095) BASIC METABOLIC [id number] 05:33:00 Test Item Value Reference Range Interpretation [...] ESTIMATED GFR. CBC W/PLT COUNT & AUTO [id number] 05:04:00 Test Item Value Reference Range Interpretation [...] 0.00-0.20 (test code = 417) 0.00VANCOMYCIN LEVEL, [id number] 21:36:00 Test Item Value Reference Range Interpretation Comments VANCOMYCIN TROUGH (BEAKER) (test 9.5 ug/mL 10.0-20.0 L code = 522) Please draw prior to 4th vancomycin doseVITAMIN B12 AND [id number] 04:33:00 Test Item Value Reference Range Interpretation Comments VITAMIN B12 (BEAKER) (test code = 599 pg/mL 213-816 774) FOLATE (BEAKER) (test code = 362) 7.7 ng/mL >=7.0 Effective 03/02/2014: Folate Reference Range ChangeNew: >=7.0 Previous: >=5.4HEPATIC FUNCTION [id number] 03:58:00 Test Item Value Reference Range Interpretation [...] = 12 U/L 6-55 347) BASIC METABOLIC [id number] 03:58:00 Test Item Value Reference Range Interpretation [...] ESTIMATED GFR. CBC W/PLT COUNT & AUTO [id number] 03:45:00 Test Item Value Reference Range Interpretation [...] K/ L 0.00-0.20 (test code = 417) [id number] 03:18:00 Test Item Value Reference Range Interpretation Comments PARTIAL THROMBOPLASTIN TIME 42.6 seconds 22.5-36.0 H (BEAKER) (test code = 760) PROTHROMBIN [id number] 03:17:00 Test Item Value Reference Range Interpretation Comments PROTIME (BEAKER) (test code = 13.0 seconds 11.7-14.7 759) INR (BEAKER) (test code = 370) 1.0 <=5.9 RECOMMENDED COUMADIN/WARFARIN INR THERAPY RANGESSTANDARD DOSE: 2.0 - 3.0 Includes: PROPHYLAXIS for venous thrombosis, systemic embolization; TREATMENT for venous thrombosis and/or pulmonary embolus.HIGH RISK: Target INR is 2.5-3.5 for patients with mechanical heart valves.BASIC METABOLIC [id number] 02:48:00 Test Item Value Reference Range Interpretation [...] ESTIMATED GFR. CBC W/PLT COUNT & AUTO TRPVCORZSWYJ0534-75-95 02:47:00 Test Item Value Reference Range Interpretation [...] K/ L 0.00-0.20 (test code = 417) 0.16NDYKMBTST5457-57-27 09:18:00 Test Item Value Reference Range Interpretation Comments Sodium Lvl (test code = Sodium Lvl) 146 135-145 [facility]JgjtyecLIOAVNSNDZ8367-10-22 09:18:00 Test Item Value Reference Range Interpretation Comments MPV (test code = MPV) 9.7 7.4-10.4 N [facility]anoPuaotjmLHMPCTXBAR8643-43-96 09:18:00 Test Item Value Reference Range Interpretation Comments Platelet (test code = Platelet) 188 133-450 N [facility]anoYqdybilIIZXHZYTUT2711-21-96 09:18:00 Test Item Value Reference Range Interpretation Comments MCHC (test code = MCHC) 34.5 32.0-36.0 N [facility]anoGvektavHHZMNSMECT0757-11-37 09:18:00 Test Item Value Reference Range Interpretation Comments MCH (test code = MCH) 34.2 pg 27.0-31.0 H [facility]anoLilvmssSIWSUUPOAB8580-35-58 09:18:00 Test Item Value Reference Range Interpretation Comments Hgb (test code = Hgb) 13.4 14.0-18.0 L [facility]anoMxsbqzySPAFSURNHU5827-94-69 09:18:00 Test Item Value Reference Range Interpretation Comments WBC (test code = WBC) 5.8 3.7-10.4 N [facility]anoLgocdflRGUCZIUCWV1147-89-16 09:18:00 Test Item Value Reference Range Interpretation Comments RBC (test code = RBC) 3.92 4.70-6.10 L [facility]anoEinvmapJXZINHDLDN6171-07-87 09:18:00 Test Item Value Reference Range Interpretation Comments Segs (test code = Segs) 41.0 45.0-75.0 L [facility]anoMhmtbnkKBWXHITQSK2245-59-96 09:18:00 Test Item Value Reference Range Interpretation Comments Monocytes # (test code 0.8 See_Comment N [Aut omated message] The = Monocytes #) system which generated this result tra nsmitted reference range : <=0.8. The reference r jessika was not used to int erpret this result as normal/abnormal . [facility]anoHiwqrhbMYDUPZAKTI3196-12-98 09:18:00 Test Item Value Reference Range Interpretation Comments Lymphocytes # (test code = Lymphocytes 2.4 1.0-5.5 N #) [facility]JlzexzfVALSDOZLY7878-95-78 09:18:00 Test Item Value Reference Range Interpretation Comments Potassium Lvl (test code = Potassium 4.0 3.5-5.1 N Lvl) [facility]anoJfkepxlRZMGSJFEAH7757-15-43 09:18:00 Test Item Value Reference Range Interpretation Comments Basophils # (test code 0.0 See_Comment N [Aut omated message] The = Basophils #) system which generated this result tra nsmitted reference range : <=0.2. The reference r jessika was not used to int erpret this result as normal/abnormal . [facility]anoYnpilfcXYKWXLPSLM8882-07-22 09:18:00 Test Item Value Reference Range Interpretation Comments Eosinophils # (test code 0.2 See_Comment N [A utomated message] The = Eosinophils #) system whic h generated this result tra nsmitted reference range : <=0.5. The reference r jessika was not used to int erpret this result as normal/abnormal . [facility]anoIvbnslnBLNNBQFUXO7281-26-31 09:18:00 Test Item Value Reference Range Interpretation Comments Lymphocytes (test code = Lymphocytes) 41.3 20.0-40.0 H [facility] CenterSilhqxgOPGCCDXZU5513-70-25 09:18:00 Test Item Value Reference Range Interpretation Comments AGAP (test code = AGAP) 14.0 10.0-20.0 N [facility] CenterDpifqtwZBOAIGKWV2880-48-41 09:18:00 Test Item Value Reference Range Interpretation Comments Chloride Lvl (test code = Chloride Lvl) 110 95-109 H [facility] CenterXgpafpqONZPYHIQD7492-96-60 09:18:00 Test Item Value Reference Range Interpretation Comments CO2 (test code = CO2) 26 24-32 N [facility] CenterZlipebpVWAGKGIPJ2531-03-79 09:18:00 Test Item Value Reference Range Interpretation Comments Calcium Lvl (test code = Calcium Lvl) 9.1 8.5-10.5 N [facility] CenterMxxhiguIJNABTQMJ7612-32-50 09:18:00 Test Item Value Reference Range Interpretation Comments Sodium Lvl (test code = Sodium Lvl) 146 135-145 H [facility] CenterSlwezymTZFDTKZHA5452-26-16 09:18:00 Test Item Value Reference Range Interpretation Comments Potassium Lvl (test code = Potassium 4.0 3.5-5.1 N Lvl) [facility] CenterCbcsduuNFXRIYPXS5717-55-66 09:18:00 Test Item Value Reference Range Interpretation Comments BUN (test code = BUN) 11 7-22 N [facility] CenterZgtigbfYHXEXQRXT9866-10-99 09:18:00 Test Item Value Reference Range Interpretation Comments Glucose Lvl (test code = Glucose Lvl) 107 70-99 H [facility]anoPtkpujdBAMFHLRYIM9913-43-27 09:18:00 Test Item Value Reference Range Interpretation Comments Segs (test code = Segs) 41.0 45.0-75.0 L [facility] CenterRwkwultQMISNPFZI4548-41-53 09:18:00 Test Item Value Reference Range Interpretation Comments Creatinine Lvl (test code = Creatinine 0.7 0.5-1.4 N Lvl) [facility]anoEtdnughZKQIQVLMTB8735-71-88 09:18:00 Test Item Value Reference Range Interpretation Comments RDW (test code = RDW) 13.6 11.5-14.5 N [facility]anoPdsxwfaPXONGALFWI1776-49-53 09:18:00 Test Item Value Reference Range Interpretation Comments MCV (test code = MCV) 98.9 80.0-94.0 H [facility]anoWenpczmBJZYKPSNUS5668-72-19 09:18:00 Test Item Value Reference Range Interpretation Comments Hct (test code = Hct) 38.8 42.0-54.0 L [facility]anoSmhxgxiRIGVSKTXAC0720-55-14 09:18:00 Test Item Value Reference Range Interpretation Comments MPV (test code = MPV) 9.7 7.4-10.4 N [facility]anoMirqisdALCIOZKWQY3901-29-84 09:18:00 Test Item Value Reference Range Interpretation Comments Platelet (test code = Platelet) 188 133-450 N [facility]anoDheshyvVXPXCDZKLW2277-48-27 09:18:00 Test Item Value Reference Range Interpretation Comments MCHC (test code = MCHC) 34.5 32.0-36.0 N [facility]anoLszwcyeHCUCMSBCRI0233-20-46 09:18:00 Test Item Value Reference Range Interpretation Comments MCH (test code = MCH) 34.2 pg 27.0-31.0 H [facility]anoTefyylnWXKKVRTTBX3470-94-49 09:18:00 Test Item Value Reference Range Interpretation Comments Hgb (test code = Hgb) 13.4 14.0-18.0 L [facility]anoToiexadLSBJOJUXPV3591-76-79 09:18:00 Test Item Value Reference Range Interpretation Comments WBC (test code = WBC) 5.8 3.7-10.4 N [facility]anoUoylfvnJEJIDOPEOK0658-14-16 09:18:00 Test Item Value Reference Range Interpretation Comments Eosinophils (test code = 3.9 See_Comment N [A utomated message] The Eosinophils) system which ge nerated this result tra nsmitted reference range : <=4.0. The reference r jessika was not used to int erpret this result as normal/abnormal . [facility]anoAhazbekKGOBZDELML7733-94-51 09:18:00 Test Item Value Reference Range Interpretation Comments RBC (test code = RBC) 3.92 4.70-6.10 L [facility]anoHpwmjfhSGDOARAVSP7144-85-62 09:18:00 Test Item Value Reference Range Interpretation Comments Monocytes # (test code 0.8 See_Comment N [Aut omated message] The = Monocytes #) system which generated this result tra nsmitted reference range : <=0.8. The reference r jessika was not used to int erpret this result as normal/abnormal . [facility]anoCoewvdiOFSBXITOXV7122-52-43 09:18:00 Test Item Value Reference Range Interpretation Comments Lymphocytes # (test code = Lymphocytes 2.4 1.0-5.5 N #) [facility]anoZhivzsvUEHMDNWTJE6986-01-91 09:18:00 Test Item Value Reference Range Interpretation Comments Basophils # (test code 0.0 See_Comment N [Aut omated message] The = Basophils #) system which generated this result tra nsmitted reference range : <=0.2. The reference r jessika was not used to int erpret this result as normal/abnormal . [facility]anoMtvqzceUIJEKOXNNX2971-78-60 09:18:00 Test Item Value Reference Range Interpretation Comments Eosinophils # (test code 0.2 See_Comment N [A utomated message] The = Eosinophils #) system whic h generated this result tra nsmitted reference range : <=0.5. The reference r jessika was not used to int erpret this result as normal/abnormal . [facility]anoTdbgoabREMWXGABCN0644-60-09 09:18:00 Test Item Value Reference Range Interpretation Comments Lymphocytes (test code = Lymphocytes) 41.3 20.0-40.0 H [facility]anoZmpzncoVOOGPQFWZF8304-99-18 09:18:00 Test Item Value Reference Range Interpretation Comments Segs (test code = Segs) 41.0 45.0-75.0 L [facility]anoHwdjqvjGWOUABGAII8386-52-59 09:18:00 Test Item Value Reference Range Interpretation Comments Eosinophils (test code = 3.9 See_Comment N [A utomated message] The Eosinophils) system which ge nerated this result tra nsmitted reference range : <=4.0. The reference r jessika was not used to int erpret this result as normal/abnormal . [facility]anoJefsbokOBIXTMOQXR7122-56-75 09:18:00 Test Item Value Reference Range Interpretation Comments Segs-Bands # (test code = Segs-Bands #) 2.4 1.5-8.1 N [facility]anoWneqrxvJKYCSRDXVO1331-11-88 09:18:00 Test Item Value Reference Range Interpretation Comments Basophils (test code = 0.3 See_Comment N [Aut omated message] The Basophils) system which ge nerated this result tra nsmitted reference range : <=1.0. The reference r jessika was not used to int erpret this result as normal/abnormal . [facility]anoEnbbqsjMFEBLHKSIF5011-94-30 09:18:00 Test Item Value Reference Range Interpretation Comments Segs-Bands # (test code = Segs-Bands #) 2.4 1.5-8.1 N [facility]anoHvgaeucFOPYFSDONG9273-11-19 09:18:00 Test Item Value Reference Range Interpretation Comments Monocytes (test code = Monocytes) 13.5 2.0-12.0 H [facility]anoNztfxelQLYDRWKOPQ5612-53-46 09:18:00 Test Item Value Reference Range Interpretation Comments Basophils (test code = 0.3 See_Comment N [Aut omated message] The Basophils) system which ge nerated this result tra nsmitted reference range : <=1.0. The reference r jessika was not used to int erpret this result as normal/abnormal . [facility]anoPhclnsoTMGYWVNHLQ2424-01-16 09:18:00 Test Item Value Reference Range Interpretation Comments Monocytes (test code = Monocytes) 13.5 2.0-12.0 H [facility]anoCmfwejrYNWZDHFHTC7349-06-31 09:18:00 Test Item Value Reference Range Interpretation Comments Eosinophils (test code = 3.9 See_Comment N [A utomated message] The Eosinophils) system which ge nerated this result tra nsmitted reference range : <=4.0. The reference r jessika was not used to int erpret this result as normal/abnormal . [facility]anoDkdiizwXBZXCKSCBW6608-17-91 09:18:00 Test Item Value Reference Range Interpretation Comments Segs-Bands # (test code = Segs-Bands #) 2.4 1.5-8.1 N [facility] CenterXydgkfuLAFDQJVCF0965-05-31 09:18:00 Test Item Value Reference Range Interpretation Comments BUN (test code = BUN) 11 7-22 N [facility]anoZgzggqtYSHYQHRZHP6118-27-91 09:18:00 Test Item Value Reference Range Interpretation Comments Basophils (test code = 0.3 See_Comment N [Aut omated message] The Basophils) system which ge nerated this result tra nsmitted reference range : <=1.0. The reference r jessika was not used to int erpret this result as normal/abnormal . [facility]anoLkotqezTBQTJFDWFE0116-88-74 09:18:00 Test Item Value Reference Range Interpretation Comments Monocytes (test code = Monocytes) 13.5 2.0-12.0 H [facility] CenterUdxijhfRMFNMTLMN8289-30-54 09:18:00 Test Item Value Reference Range Interpretation Comments AGAP (test code = AGAP) 14.0 10.0-20.0 N [facility] CenterPhrwwecDGZLOXUII2155-28-56 09:18:00 Test Item Value Reference Range Interpretation Comments Chloride Lvl (test code = Chloride Lvl) 110 95-109 H [facility] CenterXsewmfzJAJFXFWNG8890-34-16 09:18:00 Test Item Value Reference Range Interpretation Comments CO2 (test code = CO2) 26 24-32 N [facility] CenterIajvzxiTRWKPRVTX4431-50-00 09:18:00 Test Item Value Reference Range Interpretation Comments Calcium Lvl (test code = Calcium Lvl) 9.1 8.5-10.5 N [facility] CenterSzergtcVEGNQCNXC8010-79-07 09:18:00 Test Item Value Reference Range Interpretation Comments Sodium Lvl (test code = Sodium Lvl) 146 135-145 H [facility] CenterHjwghrxVWMQTOGTD1929-21-74 09:18:00 Test Item Value Reference Range Interpretation Comments Potassium Lvl (test code = Potassium 4.0 3.5-5.1 N Lvl) [facility] CenterCcsfgimGKSVPEKFT9626-29-76 09:18:00 Test Item Value Reference Range Interpretation Comments BUN (test code = BUN) 11 7-22 N [facility] CenterBnnssrsPYZNYHKSE3673-05-63 09:18:00 Test Item Value Reference Range Interpretation Comments Glucose Lvl (test code = Glucose Lvl) 107 70-99 H [facility] CenterXlhtprcPPBCHLXFZ7612-03-95 09:18:00 Test Item Value Reference Range Interpretation Comments Glucose Lvl (test code = Glucose Lvl) 107 70-99 H [facility] CenterZmvzgtzULCEITJLV4618-75-57 09:18:00 Test Item Value Reference Range Interpretation Comments Creatinine Lvl (test code = Creatinine 0.7 0.5-1.4 N Lvl) [facility]anoOyxrlugFBAUBCGTJI3327-50-80 09:18:00 Test Item Value Reference Range Interpretation Comments RDW (test code = RDW) 13.6 11.5-14.5 N [facility]anoZhhdvziOVRNWGIGAJ6831-78-65 09:18:00 Test Item Value Reference Range Interpretation Comments MCV (test code = MCV) 98.9 80.0-94.0 H [facility]anoJzlycwkQGHXSMCWYY1424-09-82 09:18:00 Test Item Value Reference Range Interpretation Comments Hct (test code = Hct) 38.8 42.0-54.0 L [facility]anoKiriwpqPFMJSLXWYA5105-43-94 09:18:00 Test Item Value Reference Range Interpretation Comments MPV (test code = MPV) 9.7 7.4-10.4 N [facility]anoRlhkmwqODOIPWEZTH1701-42-07 09:18:00 Test Item Value Reference Range Interpretation Comments Platelet (test code = Platelet) 188 133-450 N [facility]anoIgalwjtYDCJHHIINC1519-07-08 09:18:00 Test Item Value Reference Range Interpretation Comments MCHC (test code = MCHC) 34.5 32.0-36.0 N [facility]anoLvernskGWBVOHBKOR0812-26-45 09:18:00 Test Item Value Reference Range Interpretation Comments MCH (test code = MCH) 34.2 pg 27.0-31.0 H [facility]anoRmfrbzfBNBKVKMKJM1512-62-81 09:18:00 Test Item Value Reference Range Interpretation Comments Hgb (test code = Hgb) 13.4 14.0-18.0 L [facility]anoKvhieifNLVGSTOAZU4289-66-32 09:18:00 Test Item Value Reference Range Interpretation Comments WBC (test code = WBC) 5.8 3.7-10.4 N [facility] CenterSgqvpjeYKJCCWIPV0107-99-73 09:18:00 Test Item Value Reference Range Interpretation Comments Creatinine Lvl (test code = Creatinine 0.7 0.5-1.4 N Lvl) [facility]anoEwwvoxmHHYFJFQBBT6523-01-59 09:18:00 Test Item Value Reference Range Interpretation Comments RBC (test code = RBC) 3.92 4.70-6.10 L [facility]anoRwehejbSAMREBXBAF5266-37-57 09:18:00 Test Item Value Reference Range Interpretation Comments Monocytes # (test code 0.8 See_Comment N [Aut omated message] The = Monocytes #) system which generated this result tra nsmitted reference range : <=0.8. The reference r jessika was not used to int erpret this result as normal/abnormal . [facility]anoUwhwzxzTHCSKOWVLY0090-65-89 09:18:00 Test Item Value Reference Range Interpretation Comments Lymphocytes # (test code = Lymphocytes 2.4 1.0-5.5 N #) [facility]anoPennjemMYEDQRRVRH6710-61-63 09:18:00 Test Item Value Reference Range Interpretation Comments Basophils # (test code 0.0 See_Comment N [Aut omated message] The = Basophils #) system which generated this result tra nsmitted reference range : <=0.2. The reference r jessika was not used to int erpret this result as normal/abnormal . [facility]anoPqgjthqPPAJBYQQVE9595-04-63 09:18:00 Test Item Value Reference Range Interpretation Comments Eosinophils # (test code 0.2 See_Comment N [A utomated message] The = Eosinophils #) system whic h generated this result tra nsmitted reference range : <=0.5. The reference r jessika was not used to int erpret this result as normal/abnormal . [facility]anoMzlrkfeRJFNZMPECZ3823-74-24 09:18:00 Test Item Value Reference Range Interpretation Comments Lymphocytes (test code = Lymphocytes) 41.3 20.0-40.0 H [facility]anoAmbwiaiMYDUCQQSHX0460-41-21 09:18:00 Test Item Value Reference Range Interpretation Comments Segs (test code = Segs) 41.0 45.0-75.0 L [facility]anoIcsjqfeIKDLODOFDF7678-70-49 09:18:00 Test Item Value Reference Range Interpretation Comments Eosinophils (test code = 3.9 See_Comment N [A utomated message] The Eosinophils) system which ge nerated this result tra nsmitted reference range : <=4.0. The reference r jessika was not used to int erpret this result as normal/abnormal . [facility]anoVjudosfNZZCANRZGI3511-28-15 09:18:00 Test Item Value Reference Range Interpretation Comments Segs-Bands # (test code = Segs-Bands #) 2.4 1.5-8.1 N [facility]anoEklhctuRFOKJBOMJZ8548-89-81 09:18:00 Test Item Value Reference Range Interpretation Comments Basophils (test code = 0.3 See_Comment N [Aut omated message] The Basophils) system which ge nerated this result tra nsmitted reference range : <=1.0. The reference r jessika was not used to int erpret this result as normal/abnormal . [facility]anoKgwyflgALZDUFUQLB5044-07-67 09:18:00 Test Item Value Reference Range Interpretation Comments RDW (test code = RDW) 13.6 11.5-14.5 N [facility]anoPwpjhtvTESDEPJPQJ2925-01-02 09:18:00 Test Item Value Reference Range Interpretation Comments Monocytes (test code = Monocytes) 13.5 2.0-12.0 H [facility]anoSkisnkkIWVLPHOCAQ0718-12-88 09:18:00 Test Item Value Reference Range Interpretation Comments MCV (test code = MCV) 98.9 80.0-94.0 H [facility]anoCvalscpVKGQDOHAJD2378-86-74 09:18:00 Test Item Value Reference Range Interpretation Comments Hct (test code = Hct) 38.8 42.0-54.0 L [facility]anoGkoocryINICNMNMDR4491-16-78 09:18:00 Test Item Value Reference Range Interpretation Comments MPV (test code = MPV) 9.7 7.4-10.4 N [facility]anoWmbhjlgVPXSAVFCWG0986-54-73 09:18:00 Test Item Value Reference Range Interpretation Comments Platelet (test code = Platelet) 188 133-450 N [facility]anoSdskyolCRQMYKCPAS3285-86-04 09:18:00 Test Item Value Reference Range Interpretation Comments MCHC (test code = MCHC) 34.5 32.0-36.0 N [facility]anoTfjiidlRKDQSAEYLG6633-68-59 09:18:00 Test Item Value Reference Range Interpretation Comments MCH (test code = MCH) 34.2 pg 27.0-31.0 H [facility]anoJgozgjmDRBOTFUSHJ0767-03-07 09:18:00 Test Item Value Reference Range Interpretation Comments Hgb (test code = Hgb) 13.4 14.0-18.0 L [facility]anoWtrmfojSCEKANYMYT2254-92-72 09:18:00 Test Item Value Reference Range Interpretation Comments WBC (test code = WBC) 5.8 3.7-10.4 N [facility]anoVkauhdtJNIYWCVSPI2153-23-11 09:18:00 Test Item Value Reference Range Interpretation Comments RBC (test code = RBC) 3.92 4.70-6.10 L [facility]anoAddwampJBRSUSDKZH3164-63-22 09:18:00 Test Item Value Reference Range Interpretation Comments Monocytes # (test code 0.8 See_Comment N [Aut omated message] The = Monocytes #) system which generated this result tra nsmitted reference range : <=0.8. The reference r jessika was not used to int erpret this result as normal/abnormal . [facility]anoDozbpenAIYERARDOC5677-14-11 09:18:00 Test Item Value Reference Range Interpretation Comments Lymphocytes # (test code = Lymphocytes 2.4 1.0-5.5 N #) [facility]anoIifhoesUEHLTRPERW1346-10-79 09:18:00 Test Item Value Reference Range Interpretation Comments Basophils # (test code 0.0 See_Comment N [Aut omated message] The = Basophils #) system which generated this result tra nsmitted reference range : <=0.2. The reference r jessika was not used to int erpret this result as normal/abnormal . [facility]anoGmyzfzmGDISHDESPA8145-51-08 09:18:00 Test Item Value Reference Range Interpretation Comments Eosinophils # (test code 0.2 See_Comment N [A utomated message] The = Eosinophils #) system whic h generated this result tra nsmitted reference range : <=0.5. The reference r jessika was not used to int erpret this result as normal/abnormal . [facility]anoPlqkyefMUANUSZAVW5608-89-16 09:18:00 Test Item Value Reference Range Interpretation Comments Lymphocytes (test code = Lymphocytes) 41.3 20.0-40.0 H [facility]anoXrjszrxKGAMKGTHET2422-78-88 09:18:00 Test Item Value Reference Range Interpretation Comments Segs (test code = Segs) 41.0 45.0-75.0 L [facility]anoIgbdpowFKXEHNTNOD2799-18-28 09:18:00 Test Item Value Reference Range Interpretation Comments Eosinophils (test code = 3.9 See_Comment N [A utomated message] The Eosinophils) system which ge nerated this result tra nsmitted reference range : <=4.0. The reference r jessika was not used to int erpret this result as normal/abnormal . [facility] PlanoFmlnargYWWDJQTKZH9750-59-34 09:18:00 Test Item Value Reference Range Interpretation Comments Segs-Bands # (test code = Segs-Bands #) 2.4 1.5-8.1 N [facility]anoYrktdrmFBZGGPQPCF4086-18-49 09:18:00 Test Item Value Reference Range Interpretation Comments Basophils (test code = 0.3 See_Comment N [Aut omated message] The Basophils) system which ge nerated this result tra nsmitted reference range : <=1.0. The reference r jessika was not used to int erpret this result as normal/abnormal . [facility]anoCzzivjvXQSODLUCWC2784-38-64 09:18:00 Test Item Value Reference Range Interpretation Comments Monocytes (test code = Monocytes) 13.5 2.0-12.0 H [facility] CenterNhfdmvmPLXOHDYEN8294-10-31 09:18:00 Test Item Value Reference Range Interpretation Comments AGAP (test code = AGAP) 14.0 10.0-20.0 N [facility] CenterHtfapvkAXVDTBEBO5191-71-17 09:18:00 Test Item Value Reference Range Interpretation Comments Chloride Lvl (test code = Chloride Lvl) 110 95-109 H [facility] CenterTqayeahNHWKAXNNI0109-92-06 09:18:00 Test Item Value Reference Range Interpretation Comments CO2 (test code = CO2) 26 24-32 N [facility] CenterDpmcydbQFCJGYGTQ4973-22-12 09:18:00 Test Item Value Reference Range Interpretation Comments Calcium Lvl (test code = Calcium Lvl) 9.1 8.5-10.5 N [facility] CenterVhpozcaWTURUADHP2771-97-42 09:18:00 Test Item Value Reference Range Interpretation Comments Sodium Lvl (test code = Sodium Lvl) 146 135-145 H [facility] CenterWlcaaztZCUKNJDRD1698-77-27 09:18:00 Test Item Value Reference Range Interpretation Comments Potassium Lvl (test code = Potassium 4.0 3.5-5.1 N Lvl) [facility] CenterAaiobwhXMPVUFBCT5740-01-97 09:18:00 Test Item Value Reference Range Interpretation Comments AGAP (test code = AGAP) 14.0 10.0-20.0 [facility]PgpaksmSQOJZLCWK5568-46-02 09:18:00 Test Item Value Reference Range Interpretation Comments Chloride Lvl (test code = Chloride Lvl) 110 95-109 H [facility] CenterLpbxlpjRAPHBUPJK8632-12-51 09:18:00 Test Item Value Reference Range Interpretation Comments CO2 (test code = CO2) 26 24-32 N [facility] CenterVmuhyxwFBGUZSUYA8541-53-80 09:18:00 Test Item Value Reference Range Interpretation Comments BUN (test code = BUN) 11 7-22 N [facility] CenterTeebucmSAWVXPOHH6839-32-96 09:18:00 Test Item Value Reference Range Interpretation Comments Calcium Lvl (test code = Calcium Lvl) 9.1 8.5-10.5 N [facility] CenterAioydvsQYXNPALRT8028-98-06 09:18:00 Test Item Value Reference Range Interpretation Comments Sodium Lvl (test code = Sodium Lvl) 146 135-145 H [facility] CenterGpzcrcaWUNBLUNOZ9345-18-99 09:18:00 Test Item Value Reference Range Interpretation Comments Potassium Lvl (test code = Potassium 4.0 3.5-5.1 N Lvl) [facility] CenterVqrlpsaUUIYOKLAG3964-85-77 09:18:00 Test Item Value Reference Range Interpretation Comments BUN (test code = BUN) 11 7-22 N [facility] CenterZfwneqfDNXULAAGO7859-74-81 09:18:00 Test Item Value Reference Range Interpretation Comments Glucose Lvl (test code = Glucose Lvl) 107 70-99 H [facility] CenterJgcevynTNDTQAZHB1896-96-42 09:18:00 Test Item Value Reference Range Interpretation Comments Creatinine Lvl (test code = Creatinine 0.7 0.5-1.4 N Lvl) [facility]XeaxnsuSLEFGSTSUZ6050-41-34 09:18:00 Test Item Value Reference Range Interpretation Comments RDW (test code = RDW) 13.6 11.5-14.5 N [facility]anoWsrydpuHTMFNGNQBH4593-99-15 09:18:00 Test Item Value Reference Range Interpretation Comments MCV (test code = MCV) 98.9 80.0-94.0 H [facility]anoXhyvsgeOBHPGZPHSI0410-26-20 09:18:00 Test Item Value Reference Range Interpretation Comments Hct (test code = Hct) 38.8 42.0-54.0 L [facility]anoVpurqozQEZTISFNXG8209-45-74 09:18:00 Test Item Value Reference Range Interpretation Comments MPV (test code = MPV) 9.7 7.4-10.4 N [facility] CenterRelnqupTESXWZMDX2569-06-16 09:18:00 Test Item Value Reference Range Interpretation Comments Glucose Lvl (test code = Glucose Lvl) 107 70-99 H [facility]anoRwooapbTZQPTVYQPR8397-26-36 09:18:00 Test Item Value Reference Range Interpretation Comments Platelet (test code = Platelet) 188 133-450 N [facility]anoNaqebqkVJKVFIGIQT9718-25-64 09:18:00 Test Item Value Reference Range Interpretation Comments MCHC (test code = MCHC) 34.5 32.0-36.0 N [facility]anoMhljjjoFWVTIPHNFL1481-68-45 09:18:00 Test Item Value Reference Range Interpretation Comments MCH (test code = MCH) 34.2 pg 27.0-31.0 H [facility]anoYxnjbglOYLETWJNJS4478-35-00 09:18:00 Test Item Value Reference Range Interpretation Comments Hgb (test code = Hgb) 13.4 14.0-18.0 L [facility] CenterGobmnigVOKCHCQWA2003-01-01 09:18:00 Test Item Value Reference Range Interpretation Comments AGAP (test code = AGAP) 14.0 10.0-20.0 N [facility]anoVvktxwxHCSYAMYAYQ7096-46-86 09:18:00 Test Item Value Reference Range Interpretation Comments WBC (test code = WBC) 5.8 3.7-10.4 N [facility]anoKfxwvlhJWBVAEQZIB9415-81-07 09:18:00 Test Item Value Reference Range Interpretation Comments RBC (test code = RBC) 3.92 4.70-6.10 L [facility]anoJqnnghqSMQFQZBINN9443-54-36 09:18:00 Test Item Value Reference Range Interpretation Comments Monocytes # (test code 0.8 See_Comment N [Aut omated message] The = Monocytes #) system which generated this result tra nsmitted reference range : <=0.8. The reference r jessika was not used to int erpret this result as normal/abnormal . [facility]anoQjfenjjTEXWLFCJVA4551-10-43 09:18:00 Test Item Value Reference Range Interpretation Comments Lymphocytes # (test code = Lymphocytes 2.4 1.0-5.5 N #) [facility]anoXmweqppOXWTIWKBRL9242-33-45 09:18:00 Test Item Value Reference Range Interpretation Comments Basophils # (test code 0.0 See_Comment N [Aut omated message] The = Basophils #) system which generated this result tra nsmitted reference range : <=0.2. The reference r jessika was not used to int erpret this result as normal/abnormal . [facility]anoWeldvjhFAEFRXPWMQ1453-35-80 09:18:00 Test Item Value Reference Range Interpretation Comments Eosinophils # (test code 0.2 See_Comment N [A utomated message] The = Eosinophils #) system whic h generated this result tra nsmitted reference range : <=0.5. The reference r jessika was not used to int erpret this result as normal/abnormal . [facility] CenterNctedwdZKXVUZNYF2178-84-49 09:18:00 Test Item Value Reference Range Interpretation Comments Creatinine Lvl (test code = Creatinine 0.7 0.5-1.4 N Lvl) [facility]anoGjwwsauRUUIKEFTNY9406-13-50 09:18:00 Test Item Value Reference Range Interpretation Comments Lymphocytes (test code = Lymphocytes) 41.3 20.0-40.0 H [facility]anoLvhznoiAJIYRRBWDK1909-05-12 09:18:00 Test Item Value Reference Range Interpretation Comments Segs (test code = Segs) 41.0 45.0-75.0 L [facility]anoKirooduCOQZWERDXV9482-41-46 09:18:00 Test Item Value Reference Range Interpretation Comments Eosinophils (test code = 3.9 See_Comment N [A utomated message] The Eosinophils) system which ge nerated this result tra nsmitted reference range : <=4.0. The reference r jessika was not used to int erpret this result as normal/abnormal . [facility] CenterXvruvtlAXJOXYAKY6250-11-93 09:18:00 Test Item Value Reference Range Interpretation Comments Chloride Lvl (test code = Chloride Lvl) 110 95-109 H [facility]anoAxklnatMIFQEGBMLO4624-26-63 09:18:00 Test Item Value Reference Range Interpretation Comments Segs-Bands # (test code = Segs-Bands #) 2.4 1.5-8.1 N [facility]anoTewctcpVNUALHZKFN2030-82-08 09:18:00 Test Item Value Reference Range Interpretation Comments Basophils (test code = 0.3 See_Comment N [Aut omated message] The Basophils) system which ge nerated this result tra nsmitted reference range : <=1.0. The reference r jessika was not used to int erpret this result as normal/abnormal . [facility]anoBdarxybQMPQGXQHTQ0526-17-81 09:18:00 Test Item Value Reference Range Interpretation Comments Monocytes (test code = Monocytes) 13.5 2.0-12.0 H [facility]anoXlkztmrYWKBPPUQPM1796-59-41 09:18:00 Test Item Value Reference Range Interpretation Comments RDW (test code = RDW) 13.6 11.5-14.5 N [facility]anoMlobmnyERSCRNWLPS1515-54-55 09:18:00 Test Item Value Reference Range Interpretation Comments MCV (test code = MCV) 98.9 80.0-94.0 H [facility]anoFgodsmmRNBTUNGCSF5062-90-11 09:18:00 Test Item Value Reference Range Interpretation Comments Hct (test code = Hct) 38.8 42.0-54.0 L [facility]anoFjvxwneZUQFYJPUQC6318-43-36 09:18:00 Test Item Value Reference Range Interpretation Comments MPV (test code = MPV) 9.7 7.4-10.4 N [facility]anoZjhdltnUYNQVQNULN2328-62-17 09:18:00 Test Item Value Reference Range Interpretation Comments Platelet (test code = Platelet) 188 133-450 N [facility]anoEdoxwkpXMMHJJPNNJ2413-58-91 09:18:00 Test Item Value Reference Range Interpretation Comments MCHC (test code = MCHC) 34.5 32.0-36.0 N [facility]anoUnzijkyQUXWLAGPLW0083-93-14 09:18:00 Test Item Value Reference Range Interpretation Comments MCH (test code = MCH) 34.2 pg 27.0-31.0 H [facility] CenterLigactmEIUNXAHSV2809-27-09 09:18:00 Test Item Value Reference Range Interpretation Comments CO2 (test code = CO2) 26 24-32 N [facility]anoXzftruqYSAFGDWBKI5658-36-34 09:18:00 Test Item Value Reference Range Interpretation Comments Hgb (test code = Hgb) 13.4 14.0-18.0 L [facility]anoBhzdeoiKUQSTUJHEU6316-65-11 09:18:00 Test Item Value Reference Range Interpretation Comments WBC (test code = WBC) 5.8 3.7-10.4 N [facility]anoSpezqfpNXRLJZSNRN7632-75-03 09:18:00 Test Item Value Reference Range Interpretation Comments RBC (test code = RBC) 3.92 4.70-6.10 L [facility]anoXmiqhghPMPXVWIPBL2952-63-19 09:18:00 Test Item Value Reference Range Interpretation Comments Monocytes # (test code 0.8 See_Comment N [Aut omated message] The = Monocytes #) system which generated this result tra nsmitted reference range : <=0.8. The reference r jessika was not used to int erpret this result as normal/abnormal . [facility]anoHvolidvCOAELYFTHZ0133-31-67 09:18:00 Test Item Value Reference Range Interpretation Comments Lymphocytes # (test code = Lymphocytes 2.4 1.0-5.5 N #) [facility]anoRzuzbtlDVJSXQPMFP7278-69-68 09:18:00 Test Item Value Reference Range Interpretation Comments Basophils # (test code 0.0 See_Comment N [Aut omated message] The = Basophils #) system which generated this result tra nsmitted reference range : <=0.2. The reference r jessika was not used to int erpret this result as normal/abnormal . [facility]anoNjajsnkCVENJBAMCZ3114-33-94 09:18:00 Test Item Value Reference Range Interpretation Comments Eosinophils # (test code 0.2 See_Comment N [A utomated message] The = Eosinophils #) system whic h generated this result tra nsmitted reference range : <=0.5. The reference r jessika was not used to int erpret this result as normal/abnormal . [facility] CenterEtsstrbBKKUHKAGW7652-67-24 09:18:00 Test Item Value Reference Range Interpretation Comments AGAP (test code = AGAP) 14.0 10.0-20.0 N [facility] CenterQwapdweHQXBUZXNZ1967-35-13 09:18:00 Test Item Value Reference Range Interpretation Comments Chloride Lvl (test code = Chloride Lvl) 110 95-109 H [facility] CenterPetecrhGGNEMOLKG9901-37-57 09:18:00 Test Item Value Reference Range Interpretation Comments CO2 (test code = CO2) 26 24-32 N [facility] CenterDsktkmvUXIJYIRXS6260-31-14 09:18:00 Test Item Value Reference Range Interpretation Comments Calcium Lvl (test code = Calcium Lvl) 9.1 8.5-10.5 N [facility] CenterOmgjukkAQLGPQQHW4519-11-23 09:18:00 Test Item Value Reference Range Interpretation Comments Calcium Lvl (test code = Calcium Lvl) 9.1 8.5-10.5 N [facility] CenterPdgrecpPCNDVFSFJ7641-54-87 09:18:00 Test Item Value Reference Range Interpretation Comments Sodium Lvl (test code = Sodium Lvl) 146 135-145 H [facility] CenterExqcmfiHCMBPTDFY2141-13-10 09:18:00 Test Item Value Reference Range Interpretation Comments Potassium Lvl (test code = Potassium 4.0 3.5-5.1 N Lvl) [facility] CenterUixhuusPSEZDOMAD7859-55-96 09:18:00 Test Item Value Reference Range Interpretation Comments BUN (test code = BUN) 11 7-22 N [facility] CenterOitgdywPLEFIJYET4488-74-19 09:18:00 Test Item Value Reference Range Interpretation Comments Glucose Lvl (test code = Glucose Lvl) 107 70-99 H [facility] CenterSxuqcbdIZJZUBFFB3900-91-52 09:18:00 Test Item Value Reference Range Interpretation Comments Creatinine Lvl (test code = Creatinine 0.7 0.5-1.4 N Lvl) [facility]anoKbzzvbuWIYYGYDWVN0539-66-86 09:18:00 Test Item Value Reference Range Interpretation Comments Lymphocytes (test code = Lymphocytes) 41.3 20.0-40.0 H [facility]anoKafmurzQYFDKWQLTT6537-51-05 09:18:00 Test Item Value Reference Range Interpretation Comments RDW (test code = RDW) 13.6 11.5-14.5 N [facility]anoFikwkysKMRCPODEJU6189-12-90 09:18:00 Test Item Value Reference Range Interpretation Comments MCV (test code = MCV) 98.9 80.0-94.0 H [facility]anoFzslnslBVHJKOVNGZ3235-72-68 09:18:00 Test Item Value Reference Range Interpretation Comments Hct (test code = Hct) 38.8 42.0-54.0 L [facility] GLUCOSE WIGFWPK1776-91-05 21:40:00 Test Item Value Reference Range Interpretation Comments Comment1 (test code = Comment1) Notify RN/MD [facility] GLUCOSE GWNMMIP8112-51-39 21:40:00 Test Item Value Reference Range Interpretation Comments Gluc POC Lifscn (test code = Gluc POC 121 70-99 H Lifscn) [facility] GLUCOSE MUQLRJA8222-81-66 21:40:00 Test Item Value Reference Range Interpretation Comments Comment1 (test code = Comment1) Notify RN/ [facility] GLUCOSE SIUZRZA6781-54-08 21:40:00 Test Item Value Reference Range Interpretation Comments Gluc POC Lifscn (test code = Gluc POC 121 70-99 H [facility]) [facility] GLUCOSE ARSAQER7536-82-73 21:40:00 Test Item Value Reference Range Interpretation Comments Comment1 (test code = Comment1) Notify RN/ [facility] GLUCOSE ASNVAQX6129-24-52 21:40:00 Test Item Value Reference Range Interpretation Comments Gluc POC Lifscn (test code = Gluc POC 121 70-99 H Lifscn) [facility] GLUCOSE YARJILF1218-48-47 21:40:00 Test Item Value Reference Range Interpretation Comments Comment1 (test code = Comment1) Notify RN/ [facility] GLUCOSE FUZTSBJ8474-53-39 21:40:00 Test Item Value Reference Range Interpretation Comments Gluc POC Lifscn (test code = Gluc POC 121 70-99 H Lifscn) [facility] GLUCOSE PZEYUYZ3542-03-67 21:40:00 Test Item Value Reference Range Interpretation Comments Comment1 (test code = Comment1) Notify JOSEPH/ [facility] GLUCOSE JOMKSFI5819-86-63 21:40:00 Test Item Value Reference Range Interpretation Comments Gluc POC Lifscn (test code = Gluc POC 121 70-99 H Lifscn) [facility] GLUCOSE SGYVTCM5524-69-73 21:40:00 Test Item Value Reference Range Interpretation Comments Comment1 (test code = Comment1) Notify RN/ [facility] GLUCOSE ROOLQLL1656-84-91 21:40:00 Test Item Value Reference Range Interpretation Comments Gluc POC Lifscn (test code = Gluc POC 121 70-99 H [facility]n) [facility] CenterXoynrtfLTZIDSILL7225-38-58 10:14:00 Test Item Value Reference Range Interpretation Comments CO2 (test code = CO2) 30 24-32 N [facility] CenterGkoztzdAZQUCCZXR9937-02-07 10:14:00 Test Item Value Reference Range Interpretation Comments Calcium Lvl (test code = Calcium Lvl) 9.0 8.5-10.5 N [facility] CenterZirkjokACPBKUYDB1695-92-78 10:14:00 Test Item Value Reference Range Interpretation Comments Glucose Lvl (test code = Glucose Lvl) 86 70-99 N [facility] CenterDwhigcsPMGZDICJH1501-24-98 10:14:00 Test Item Value Reference Range Interpretation Comments Potassium Lvl (test code = Potassium 4.4 3.5-5.1 N Lvl) [facility] CenterCbtejdaWORYRQGNE5546-56-48 10:14:00 Test Item Value Reference Range Interpretation Comments Chloride Lvl (test code = Chloride Lvl) 107 95-109 N [facility] CenterKlmlqkyDQPJVSMAM9573-93-06 10:14:00 Test Item Value Reference Range Interpretation Comments BUN (test code = BUN) 13 7-22 N [facility] CenterUpmhjahPLQJGAFEO6271-27-47 10:14:00 Test Item Value Reference Range Interpretation Comments Creatinine Lvl (test code = Creatinine 0.7 0.5-1.4 N Lvl) [facility] CenterQcvqojwEWKGUWKQK4097-24-79 10:14:00 Test Item Value Reference Range Interpretation Comments Sodium Lvl (test code = Sodium Lvl) 144 135-145 N [facility] CenterYthjeyuEBEJDJQMU0485-14-87 10:14:00 Test Item Value Reference Range Interpretation Comments AGAP (test code = AGAP) 11.4 10.0-20.0 N [facility]anoIpjnfbcYZAAUZYDIO4526-02-07 10:14:00 Test Item Value Reference Range Interpretation Comments Basophils (test code = 0.5 See_Comment N [Aut omated message] The Basophils) system which nerated this result tra nsmitted reference range : <=1.0. The reference r jessika was not used to int erpret this result as normal/abnormal . [facility]anoXfsnarwPFEPNMEGIQ1286-49-62 10:14:00 Test Item Value Reference Range Interpretation Comments Eosinophils (test code = 3.1 See_Comment N [A utomated message] The Eosinophils) system which ge nerated this result tra nsmitted reference range : <=4.0. The reference r jessika was not used to int erpret this result as normal/abnormal . [facility]anoFtlnjleYOLMKLEAMF7410-14-51 10:14:00 Test Item Value Reference Range Interpretation Comments Segs-Bands # (test code = Segs-Bands #) 3.1 1.5-8.1 N [facility]anoKakgvofZHRHJDSSQV5151-33-82 10:14:00 Test Item Value Reference Range Interpretation Comments Lymphocytes # (test code = Lymphocytes 2.3 1.0-5.5 N #) [facility]anoZmvalkrGFDWYCXRTR8855-27-09 10:14:00 Test Item Value Reference Range Interpretation Comments Monocytes # (test code 0.9 See_Comment H [Aut omated message] The = Monocytes #) system which generated this result tra nsmitted reference range : <=0.8. The reference r jessika was not used to int erpret this result as normal/abnormal . [facility]anoYkzyuloDGYMRIAMLV7540-46-99 10:14:00 Test Item Value Reference Range Interpretation Comments Segs (test code = Segs) 48.3 45.0-75.0 N [facility]anoFfgtpvkYHMPDSQNOY1697-57-02 10:14:00 Test Item Value Reference Range Interpretation Comments Lymphocytes (test code = Lymphocytes) 34.9 20.0-40.0 N [facility]anoSubxoukHVVDHDWOMH9113-27-53 10:14:00 Test Item Value Reference Range Interpretation Comments Macrocyte (test code = 1+ *ABN*(09/25/2011 A Macrocyte) 05:14:00) [facility]anoMiupuuaEUUALUOLAD8659-06-92 10:14:00 Test Item Value Reference Range Interpretation Comments Eosinophils # (test code 0.2 See_Comment N [A utomated message] The = Eosinophils #) system [facility] h generated this result tra nsmitted reference range : <=0.5. The reference r jessika was not used to int erpret this result as normal/abnormal . [facility]anoKgqnduwDDOMOQVFCR2496-23-55 10:14:00 Test Item Value Reference Range Interpretation Comments Monocytes (test code = Monocytes) 13.2 2.0-12.0 H [facility]anoBqhvkhoZHLMULYTVK9711-75-65 10:14:00 Test Item Value Reference Range Interpretation Comments Basophils # (test code 0.0 See_Comment N [Aut omated message] The = Basophils #) system which generated this result tra nsmitted reference range : <=0.2. The reference r jessika was not used to int erpret this result as normal/abnormal . [facility]anoKdzstukVQKAMMUIAO8283-16-13 10:14:00 Test Item Value Reference Range Interpretation Comments MPV (test code = MPV) 9.1 7.4-10.4 N [facility]anoPfxpkaiBIACUZTIPM6019-73-86 10:14:00 Test Item Value Reference Range Interpretation Comments Platelet (test code = Platelet) 183 133-450 N [facility]anoDqmjlilUNGSMUOKUH1171-51-83 10:14:00 Test Item Value Reference Range Interpretation Comments RDW (test code = RDW) 14.3 11.5-14.5 N [facility]anoDildtkhNBQSEWLCHS0184-09-85 10:14:00 Test Item Value Reference Range Interpretation Comments MCHC (test code = MCHC) 34.1 32.0-36.0 N [facility]anoYcuinpzFLYEJAEJZG7698-66-89 10:14:00 Test Item Value Reference Range Interpretation Comments Hct (test code = Hct) 42.1 42.0-54.0 N [facility] PlanoRtbxjjiMLIOOHYVFH0296-83-26 10:14:00 Test Item Value Reference Range Interpretation Comments Hgb (test code = Hgb) 14.4 14.0-18.0 N [facility] PlanoZplacpvUEIUATBPVQ7634-97-09 10:14:00 Test Item Value Reference Range Interpretation Comments WBC (test code = WBC) 6.4 3.7-10.4 N [facility]anoYiulcxnYDRMQGUDSO6541-45-88 10:14:00 Test Item Value Reference Range Interpretation Comments MCV (test code = MCV) 99.3 80.0-94.0 H [facility]anoYraviyvHQZVKCSKQD1208-04-81 10:14:00 Test Item Value Reference Range Interpretation Comments RBC (test code = RBC) 4.24 4.70-6.10 L [facility]anoHzhhiadFZHBXSBFXN2299-95-65 10:14:00 Test Item Value Reference Range Interpretation Comments MCH (test code = MCH) 33.9 pg 27.0-31.0 H [facility] CenterEqijosbXHLMBFTXZ7504-57-97 10:14:00 Test Item Value Reference Range Interpretation Comments CO2 (test code = CO2) 30 24-32 N [facility] CenterYlxcwwoBENIOCCVU6703-16-23 10:14:00 Test Item Value Reference Range Interpretation Comments Calcium Lvl (test code = Calcium Lvl) 9.0 8.5-10.5 N [facility] CenterEdhvhluUJLXTALGC0119-77-64 10:14:00 Test Item Value Reference Range Interpretation Comments Glucose Lvl (test code = Glucose Lvl) 86 70-99 N [facility] CenterImvcartCPXZNOZDE6669-45-37 10:14:00 Test Item Value Reference Range Interpretation Comments Potassium Lvl (test code = Potassium 4.4 3.5-5.1 N Lvl) [facility] CenterTkgbtezZAGITRHUH5884-55-23 10:14:00 Test Item Value Reference Range Interpretation Comments Chloride Lvl (test code = Chloride Lvl) 107 95-109 N [facility] CenterVpwduycILQAYMJTG3156-00-45 10:14:00 Test Item Value Reference Range Interpretation Comments BUN (test code = BUN) 13 7-22 N [facility] CenterZcxxlwnSOVTFLEIS5719-64-63 10:14:00 Test Item Value Reference Range Interpretation Comments Creatinine Lvl (test code = Creatinine 0.7 0.5-1.4 N Lvl) [facility] CenterGswdiesZAQZZTFAI9826-82-17 10:14:00 Test Item Value Reference Range Interpretation Comments Sodium Lvl (test code = Sodium Lvl) 144 135-145 N [facility] CenterDfrckykAZIJIOFJD4162-11-18 10:14:00 Test Item Value Reference Range Interpretation Comments AGAP (test code = AGAP) 11.4 10.0-20.0 N [facility]anoTbrwzjjAGIMQZNAJA5696-19-79 10:14:00 Test Item Value Reference Range Interpretation Comments Basophils (test code = 0.5 See_Comment N [Aut omated message] The Basophils) system which ge nerated this result tra nsmitted reference range : <=1.0. The reference r jessika was not used to int erpret this result as normal/abnormal . [facility]anoGktroimJAGJBIWMOP0206-71-29 10:14:00 Test Item Value Reference Range Interpretation Comments Eosinophils (test code = 3.1 See_Comment N [A utomated message] The Eosinophils) system which ge nerated this result tra nsmitted reference range : <=4.0. The reference r jessika was not used to int erpret this result as normal/abnormal . [facility]anoIzgebhcWEEKXHAKDG9841-75-24 10:14:00 Test Item Value Reference Range Interpretation Comments Segs-Bands # (test code = Segs-Bands #) 3.1 1.5-8.1 N [facility]anoCicvohjYIOCQRVZSH9344-22-74 10:14:00 Test Item Value Reference Range Interpretation Comments Lymphocytes # (test code = Lymphocytes 2.3 1.0-5.5 N #) [facility]anoJwshtxrOVAEMDACLC5445-00-87 10:14:00 Test Item Value Reference Range Interpretation Comments Monocytes # (test code 0.9 See_Comment H [Aut omated message] The = Monocytes #) system which generated this result tra nsmitted reference range : <=0.8. The reference r jessika was not used to int erpret this result as normal/abnormal . [facility]anoOqkyiueAQPPDRFCEQ6564-20-87 10:14:00 Test Item Value Reference Range Interpretation Comments Segs (test code = Segs) 48.3 45.0-75.0 N [facility]anoVsznsueIJPXEMLJIB9402-78-77 10:14:00 Test Item Value Reference Range Interpretation Comments Lymphocytes (test code = Lymphocytes) 34.9 20.0-40.0 N [facility]anoXrxdhiwXBQTZBFDZS8309-28-68 10:14:00 Test Item Value Reference Range Interpretation Comments Macrocyte (test code = 1+ *ABN*(09/25/2011 A Macrocyte) 05:14:00) [facility]anoFkfqeobFIJDWNSLFR5692-92-19 10:14:00 Test Item Value Reference Range Interpretation Comments Eosinophils # (test code 0.2 See_Comment N [A utomated message] The = Eosinophils #) system whic h generated this result tra nsmitted reference range : <=0.5. The reference r jessika was not used to int erpret this result as normal/abnormal . [facility]RvpbwklIOCAEQFCMG2794-37-49 10:14:00 Test Item Value Reference Range Interpretation Comments Monocytes (test code = Monocytes) 13.2 2.0-12.0 H [facility]anoZrikksqBLCIIPQKNA5557-76-92 10:14:00 Test Item Value Reference Range Interpretation Comments Basophils # (test code 0.0 See_Comment N [Aut omated message] The = Basophils #) system which generated this result tra nsmitted reference range : <=0.2. The reference r jessika was not used to int erpret this result as normal/abnormal . [facility]anoMklasexUJUGHFQBNN3473-15-93 10:14:00 Test Item Value Reference Range Interpretation Comments MPV (test code = MPV) 9.1 7.4-10.4 N [facility]anoGaegwteGZNNBJFFFB0152-16-82 10:14:00 Test Item Value Reference Range Interpretation Comments Platelet (test code = Platelet) 183 133-450 N [facility]anoDbhqomoZOSPCQKEOG5011-57-39 10:14:00 Test Item Value Reference Range Interpretation Comments RDW (test code = RDW) 14.3 11.5-14.5 N [facility]anoEgjzadeHYWMCTADVL7951-06-39 10:14:00 Test Item Value Reference Range Interpretation Comments MCHC (test code = MCHC) 34.1 32.0-36.0 N [facility]anoVzepngfKEGUFIQNTW5286-76-97 10:14:00 Test Item Value Reference Range Interpretation Comments Hct (test code = Hct) 42.1 42.0-54.0 N [facility]anoEvqwlgpAILJGQQPQE2166-26-53 10:14:00 Test Item Value Reference Range Interpretation Comments Hgb (test code = Hgb) 14.4 14.0-18.0 N [facility]anoDmximlpTTQIWWEEKV8610-50-18 10:14:00 Test Item Value Reference Range Interpretation Comments WBC (test code = WBC) 6.4 3.7-10.4 N [facility]anoEaqbhzpLLBJZVMHFH7472-29-44 10:14:00 Test Item Value Reference Range Interpretation Comments MCV (test code = MCV) 99.3 80.0-94.0 H [facility]anoEorzwxdQIEHQQIURC3874-69-51 10:14:00 Test Item Value Reference Range Interpretation Comments RBC (test code = RBC) 4.24 4.70-6.10 L [facility]anoAamikccGNUOEHXYTP1709-97-50 10:14:00 Test Item Value Reference Range Interpretation Comments MCH (test code = MCH) 33.9 pg 27.0-31.0 [facility]EvpbrgqCKICDFCOE2053-84-00 10:14:00 Test Item Value Reference Range Interpretation Comments CO2 (test code = CO2) 30 24-32 N [facility] CenterTrxciizPYDGDMYSG6296-37-37 10:14:00 Test Item Value Reference Range Interpretation Comments Calcium Lvl (test code = Calcium Lvl) 9.0 8.5-10.5 N [facility] CenterXhxtxieSEAZEVVOI4769-56-33 10:14:00 Test Item Value Reference Range Interpretation Comments Glucose Lvl (test code = Glucose Lvl) 86 70-99 N [facility] CenterBhlhikhFRAXXGETO6423-92-21 10:14:00 Test Item Value Reference Range Interpretation Comments Potassium Lvl (test code = Potassium 4.4 3.5-5.1 N Lvl) [facility] CenterUurkvlkJOWJUZTBA7016-30-33 10:14:00 Test Item Value Reference Range Interpretation Comments Chloride Lvl (test code = Chloride Lvl) 107 95-109 N [facility] CenterPfjakfmWMUPLHTBH8187-79-86 10:14:00 Test Item Value Reference Range Interpretation Comments BUN (test code = BUN) 13 7-22 N [facility] CenterQfisepaEAKRQUZTI8747-74-61 10:14:00 Test Item Value Reference Range Interpretation Comments Creatinine Lvl (test code = Creatinine 0.7 0.5-1.4 N Lvl) [facility] CenterKcraqpvQISNGRTFG9890-96-52 10:14:00 Test Item Value Reference Range Interpretation Comments Sodium Lvl (test code = Sodium Lvl) 144 135-145 N [facility] CenterKkbnoqbFXWLOBKUQ5114-99-24 10:14:00 Test Item Value Reference Range Interpretation Comments AGAP (test code = AGAP) 11.4 10.0-20.0 N [facility]anoXffcrtrQCTZHFWAHD2721-15-48 10:14:00 Test Item Value Reference Range Interpretation Comments Basophils (test code = 0.5 See_Comment N [Aut omated message] The Basophils) system which nerated this result tra nsmitted reference range : <=1.0. The reference r jessika was not used to int erpret this result as normal/abnormal . [facility]anoBstpgwcOEBORGKMCY5009-83-79 10:14:00 Test Item Value Reference Range Interpretation Comments Eosinophils (test code = 3.1 See_Comment N [A utomated message] The Eosinophils) system which ge nerated this result tra nsmitted reference range : <=4.0. The reference r jessika was not used to int erpret this result as normal/abnormal . [facility]anoXqtmpezJYYWBUBECE4533-13-46 10:14:00 Test Item Value Reference Range Interpretation Comments Segs-Bands # (test code = Segs-Bands #) 3.1 1.5-8.1 N [facility]anoOsysvseYIZHVIHVPQ7112-64-10 10:14:00 Test Item Value Reference Range Interpretation Comments Lymphocytes # (test code = Lymphocytes 2.3 1.0-5.5 N #) [facility]anoMvyrkkjRUGJKEZXAM2467-90-93 10:14:00 Test Item Value Reference Range Interpretation Comments Monocytes # (test code 0.9 See_Comment H [Aut omated message] The = Monocytes #) system which generated this result tra nsmitted reference range : <=0.8. The reference r jessika was not used to int erpret this result as normal/abnormal . [facility]anoUcjpzgkJSJGVXTSHA8151-67-15 10:14:00 Test Item Value Reference Range Interpretation Comments Segs (test code = Segs) 48.3 45.0-75.0 N [facility]anoUwytcgwVCLHWFJDEO8063-48-65 10:14:00 Test Item Value Reference Range Interpretation Comments Lymphocytes (test code = Lymphocytes) 34.9 20.0-40.0 N [facility]anoJsvtotpTWKPXVRLXU3431-76-45 10:14:00 Test Item Value Reference Range Interpretation Comments Macrocyte (test code = 1+ *ABN*(09/25/2011 A Macrocyte) 05:14:00) [facility]anoPlnhaipCLSZJKVZPO1611-96-61 10:14:00 Test Item Value Reference Range Interpretation Comments Eosinophils # (test code 0.2 See_Comment N [A utomated message] The = Eosinophils #) system whic h generated this result tra nsmitted reference range : <=0.5. The reference r jessika was not used to int erpret this result as normal/abnormal . [facility]anoFknmnvkZSCZWVCIAQ3118-16-12 10:14:00 Test Item Value Reference Range Interpretation Comments Monocytes (test code = Monocytes) 13.2 2.0-12.0 H [facility]anoRtthmbeFJNNTHZEZD0259-00-52 10:14:00 Test Item Value Reference Range Interpretation Comments Basophils # (test code 0.0 See_Comment N [Aut omated message] The = Basophils #) system which generated this result tra nsmitted reference range : <=0.2. The reference r jessika was not used to int erpret this result as normal/abnormal . [facility]anoTujwdtsRQGWHGMKNJ4412-98-90 10:14:00 Test Item Value Reference Range Interpretation Comments MPV (test code = MPV) 9.1 7.4-10.4 N [facility]anoKtfnquiYZOGLLYVJD5848-90-43 10:14:00 Test Item Value Reference Range Interpretation Comments Platelet (test code = Platelet) 183 133-450 N [facility]anoTcbqccnESAJKARZKV4645-51-12 10:14:00 Test Item Value Reference Range Interpretation Comments RDW (test code = RDW) 14.3 11.5-14.5 N [facility]anoZglgbosKQVZDZIFPU1582-97-43 10:14:00 Test Item Value Reference Range Interpretation Comments MCHC (test code = MCHC) 34.1 32.0-36.0 N [facility]anoVvrbixkCNUJNZFONZ8055-71-07 10:14:00 Test Item Value Reference Range Interpretation Comments Hct (test code = Hct) 42.1 42.0-54.0 N [facility]anoIvxxgdeSGRUTUPJXU5666-47-76 10:14:00 Test Item Value Reference Range Interpretation Comments Hgb (test code = Hgb) 14.4 14.0-18.0 N [facility]anoKatgsfrWJWBCFGLXM1784-14-61 10:14:00 Test Item Value Reference Range Interpretation Comments WBC (test code = WBC) 6.4 3.7-10.4 N [facility]anoKdutlhiKYCGBYKJTG3622-46-53 10:14:00 Test Item Value Reference Range Interpretation Comments MCV (test code = MCV) 99.3 80.0-94.0 H [facility]anoPmaookeGLTYHMNZRI1813-87-55 10:14:00 Test Item Value Reference Range Interpretation Comments RBC (test code = RBC) 4.24 4.70-6.10 L [facility]anoNepniopAOKVGVKUJQ1322-19-10 10:14:00 Test Item Value Reference Range Interpretation Comments MCH (test code = MCH) 33.9 pg 27.0-31.0 H [facility] CenterRclczemNIUAGCWGM1436-63-72 10:14:00 Test Item Value Reference Range Interpretation Comments CO2 (test code = CO2) 30 24-32 N [facility] CenterLtdtzpgCSGSDTQKT7908-79-04 10:14:00 Test Item Value Reference Range Interpretation Comments Calcium Lvl (test code = Calcium Lvl) 9.0 8.5-10.5 N [facility] CenterZjdtucaGDGYMXTMY3109-59-14 10:14:00 Test Item Value Reference Range Interpretation Comments Glucose Lvl (test code = Glucose Lvl) 86 70-99 N [facility] CenterYfnquxxDWPOVGVCT1327-65-85 10:14:00 Test Item Value Reference Range Interpretation Comments Potassium Lvl (test code = Potassium 4.4 3.5-5.1 N Lvl) [facility] CenterNeuujbxJLCWIDZUP4516-78-97 10:14:00 Test Item Value Reference Range Interpretation Comments Chloride Lvl (test code = Chloride Lvl) 107 95-109 N [facility] CenterPgiuptjYRRKUNVWX2424-58-18 10:14:00 Test Item Value Reference Range Interpretation Comments BUN (test code = BUN) 13 7-22 N [facility] CenterLlqpnpdPKYZFEWLH2310-42-01 10:14:00 Test Item Value Reference Range Interpretation Comments Creatinine Lvl (test code = Creatinine 0.7 0.5-1.4 N Lvl) [facility] CenterFafzilyTVSFKRPNY5338-69-11 10:14:00 Test Item Value Reference Range Interpretation Comments Sodium Lvl (test code = Sodium Lvl) 144 135-145 N [facility] CenterIcjkcvzHHZCUXAYL6728-00-69 10:14:00 Test Item Value Reference Range Interpretation Comments AGAP (test code = AGAP) 11.4 10.0-20.0 N [facility]anoTgjrhqmSVOCYXGVZQ6102-98-01 10:14:00 Test Item Value Reference Range Interpretation Comments Basophils (test code = 0.5 See_Comment N [Aut omated message] The Basophils) system which ge nerated this result tra nsmitted reference range : <=1.0. The reference r jessika was not used to int erpret this result as normal/abnormal . [facility]anoHbadvrgNEFKQNWMKN2153-56-10 10:14:00 Test Item Value Reference Range Interpretation Comments Eosinophils (test code = 3.1 See_Comment N [A utomated message] The Eosinophils) system which ge nerated this result tra nsmitted reference range : <=4.0. The reference r jessika was not used to int erpret this result as normal/abnormal . [facility]anoHlvxpslZBLALAREED8331-60-48 10:14:00 Test Item Value Reference Range Interpretation Comments Segs-Bands # (test code = Segs-Bands #) 3.1 1.5-8.1 N [facility]anoYqjaddfDIGXTVVHER5125-53-21 10:14:00 Test Item Value Reference Range Interpretation Comments Lymphocytes # (test code = Lymphocytes 2.3 1.0-5.5 N #) [facility]anoQjswnweFCLMUTJUTC6633-27-50 10:14:00 Test Item Value Reference Range Interpretation Comments Monocytes # (test code 0.9 See_Comment H [Aut omated message] The = Monocytes #) system which generated this result tra nsmitted reference range : <=0.8. The reference r jessika was not used to int erpret this result as normal/abnormal . [facility]anoFrvaygwDCMETXEPIV8092-70-34 10:14:00 Test Item Value Reference Range Interpretation Comments Segs (test code = Segs) 48.3 45.0-75.0 N [facility]anoYbttoqhISFYNRIVND5349-33-45 10:14:00 Test Item Value Reference Range Interpretation Comments Lymphocytes (test code = Lymphocytes) 34.9 20.0-40.0 N [facility]anoEmzytzlWKZDJZIMRG3616-42-07 10:14:00 Test Item Value Reference Range Interpretation Comments Macrocyte (test code = 1+ *ABN*(09/25/2011 A Macrocyte) 05:14:00) [facility]anoSboljcvXLPXRSTWHC4498-23-45 10:14:00 Test Item Value Reference Range Interpretation Comments Eosinophils # (test code 0.2 See_Comment N [A utomated message] The = Eosinophils #) system ic h generated this result tra nsmitted reference range : <=0.5. The reference r jessika was not used to int erpret this result as normal/abnormal . [facility]anoXvpcqzyWLDBWDSVWA9772-19-04 10:14:00 Test Item Value Reference Range Interpretation Comments Monocytes (test code = Monocytes) 13.2 2.0-12.0 H [facility]anoMmyjjdtZUBXDSZKVI4262-39-42 10:14:00 Test Item Value Reference Range Interpretation Comments Basophils # (test code 0.0 See_Comment N [Aut omated message] The = Basophils #) system which generated this result tra nsmitted reference range : <=0.2. The reference r jessika was not used to int erpret this result as normal/abnormal . [facility]anoJfhvoiwVFEAYLPCTW0092-69-27 10:14:00 Test Item Value Reference Range Interpretation Comments MPV (test code = MPV) 9.1 7.4-10.4 N [facility]anoRmsrqllPKLVYKLVCZ9368-09-78 10:14:00 Test Item Value Reference Range Interpretation Comments Platelet (test code = Platelet) 183 133-450 N [facility]anoIchjwufJXXLJNYBVW6843-22-60 10:14:00 Test Item Value Reference Range Interpretation Comments RDW (test code = RDW) 14.3 11.5-14.5 N [facility]anoReuvldeFQTTLKITTR2939-47-72 10:14:00 Test Item Value Reference Range Interpretation Comments MCHC (test code = MCHC) 34.1 32.0-36.0 N [facility]anoOaewuojFQOUCGDEZP0555-18-72 10:14:00 Test Item Value Reference Range Interpretation Comments Hct (test code = Hct) 42.1 42.0-54.0 N [facility]anoCypkuvzWETIXUVWRF0998-92-34 10:14:00 Test Item Value Reference Range Interpretation Comments Hgb (test code = Hgb) 14.4 14.0-18.0 N [facility]anoQrbeshzAPTOUIZPDQ1764-68-44 10:14:00 Test Item Value Reference Range Interpretation Comments WBC (test code = WBC) 6.4 3.7-10.4 N [facility]anoLmibmuyVPGNXGSQHM9879-45-09 10:14:00 Test Item Value Reference Range Interpretation Comments MCV (test code = MCV) 99.3 80.0-94.0 H [facility]anoKipxfuqQTKADPDNBC2345-94-21 10:14:00 Test Item Value Reference Range Interpretation Comments RBC (test code = RBC) 4.24 4.70-6.10 L [facility]anoUpwsojpXGZGEHWJSI2912-20-64 10:14:00 Test Item Value Reference Range Interpretation Comments MCH (test code = MCH) 33.9 pg 27.0-31.0 H [facility] CenterRatxoqjVTYMXNMOP1820-30-26 10:14:00 Test Item Value Reference Range Interpretation Comments CO2 (test code = CO2) 30 24-32 N [facility] CenterBexuhpiIOYQSDXEE6201-31-46 10:14:00 Test Item Value Reference Range Interpretation Comments Calcium Lvl (test code = Calcium Lvl) 9.0 8.5-10.5 N [facility] CenterTfwxanaYZRLQUZFB7642-53-88 10:14:00 Test Item Value Reference Range Interpretation Comments Glucose Lvl (test code = Glucose Lvl) 86 70-99 N [facility] CenterQkwuqdcADMDPPEVL6852-09-34 10:14:00 Test Item Value Reference Range Interpretation Comments Potassium Lvl (test code = Potassium 4.4 3.5-5.1 N Lvl) [facility] CenterGowbzcdUSJSTDIKM2893-48-60 10:14:00 Test Item Value Reference Range Interpretation Comments Chloride Lvl (test code = Chloride Lvl) 107 95-109 N [facility] CenterPzziqotMNHRCNPWR0159-29-98 10:14:00 Test Item Value Reference Range Interpretation Comments BUN (test code = BUN) 13 7-22 N [facility] CenterLnkaxmiZJRFUIXWA2643-30-04 10:14:00 Test Item Value Reference Range Interpretation Comments Creatinine Lvl (test code = Creatinine 0.7 0.5-1.4 N Lvl) [facility] CenterYsgczbqGWPYFFLDH4143-50-52 10:14:00 Test Item Value Reference Range Interpretation Comments Sodium Lvl (test code = Sodium Lvl) 144 135-145 N [facility] CenterSpgknrvYXMHZPPKA0435-05-10 10:14:00 Test Item Value Reference Range Interpretation Comments AGAP (test code = AGAP) 11.4 10.0-20.0 N [facility]anoApphuicOKEVSEFGAI3952-00-78 10:14:00 Test Item Value Reference Range Interpretation Comments Basophils (test code = 0.5 See_Comment N [Aut omated message] The Basophils) system which nerated this result tra nsmitted reference range : <=1.0. The reference r jessika was not used to int erpret this result as normal/abnormal . [facility]anoXwxayydEDLVHMMYRG2864-11-43 10:14:00 Test Item Value Reference Range Interpretation Comments Eosinophils (test code = 3.1 See_Comment N [A utomated message] The Eosinophils) system which ge nerated this result tra nsmitted reference range : <=4.0. The reference r jessika was not used to int erpret this result as normal/abnormal . [facility] CenterSaklkpeFCKCQIMZG5070-10-45 10:14:00 Test Item Value Reference Range Interpretation Comments CO2 (test code = CO2) 30 24-32 N [facility] CenterWvwdljlJHBZAJWDX6485-32-42 10:14:00 Test Item Value Reference Range Interpretation Comments Calcium Lvl (test code = Calcium Lvl) 9.0 8.5-10.5 N [facility] CenterKfgjmrlNWMVCZXWB6944-55-78 10:14:00 Test Item Value Reference Range Interpretation Comments Glucose Lvl (test code = Glucose Lvl) 86 70-99 N [facility] CenterViperrqRRXWSWIAW2659-09-42 10:14:00 Test Item Value Reference Range Interpretation Comments Potassium Lvl (test code = Potassium 4.4 3.5-5.1 N Lvl) [facility]anoRhyxqjwBCDICQTSIP1072-78-45 10:14:00 Test Item Value Reference Range Interpretation Comments Segs-Bands # (test code = Segs-Bands #) 3.1 1.5-8.1 N [facility] CenterXtbnixjJYFPNZXKS1396-16-88 10:14:00 Test Item Value Reference Range Interpretation Comments Chloride Lvl (test code = Chloride Lvl) 107 95-109 N [facility] CenterRpkowbySLMTTYLZJ4445-38-13 10:14:00 Test Item Value Reference Range Interpretation Comments BUN (test code = BUN) 13 7-22 N [facility] CenterLqrjuxdOUDMQDQMM4632-93-93 10:14:00 Test Item Value Reference Range Interpretation Comments Creatinine Lvl (test code = Creatinine 0.7 0.5-1.4 N Lvl) [facility] CenterQlrhcsnUAIYDBGHM7582-30-35 10:14:00 Test Item Value Reference Range Interpretation Comments Sodium Lvl (test code = Sodium Lvl) 144 135-145 N [facility] CenterNmtqcbdEPDHMYPBC1339-86-85 10:14:00 Test Item Value Reference Range Interpretation Comments AGAP (test code = AGAP) 11.4 10.0-20.0 N [facility]anoAdjpsawOTLARABOYI3638-16-80 10:14:00 Test Item Value Reference Range Interpretation Comments Basophils (test code = 0.5 See_Comment N [Aut omated message] The Basophils) system which nerated this result tra nsmitted reference range : <=1.0. The reference r jessika was not used to int erpret this result as normal/abnormal . [facility]anoYnmcqyqGSQKJQVPAZ5785-60-92 10:14:00 Test Item Value Reference Range Interpretation Comments Eosinophils (test code = 3.1 See_Comment N [A utomated message] The Eosinophils) system which ge nerated this result tra nsmitted reference range : <=4.0. The reference r jessika was not used to int erpret this result as normal/abnormal . [facility]anoInghgdqGGJIWIOVGJ3020-04-28 10:14:00 Test Item Value Reference Range Interpretation Comments Segs-Bands # (test code = Segs-Bands #) 3.1 1.5-8.1 N [facility]anoIsfbomsUIVYCROGJI8524-45-65 10:14:00 Test Item Value Reference Range Interpretation Comments Lymphocytes # (test code = Lymphocytes 2.3 1.0-5.5 N #) [facility]anoRmqakeaXVBNVOGPBJ5972-89-68 10:14:00 Test Item Value Reference Range Interpretation Comments Monocytes # (test code 0.9 See_Comment H [Aut omated message] The = Monocytes #) system which generated this result tra nsmitted reference range : <=0.8. The reference r jessika was not used to int erpret this result as normal/abnormal . [facility]anoBagpgekRLCXHNDONV6314-80-64 10:14:00 Test Item Value Reference Range Interpretation Comments Lymphocytes # (test code = Lymphocytes 2.3 1.0-5.5 N #) [facility]anoCyqmnzhEZNYREESNF8643-64-10 10:14:00 Test Item Value Reference Range Interpretation Comments Segs (test code = Segs) 48.3 45.0-75.0 N [facility]anoBryxqyeDUTMIWHJEQ8507-98-60 10:14:00 Test Item Value Reference Range Interpretation Comments Lymphocytes (test code = Lymphocytes) 34.9 20.0-40.0 N [facility]anoRsscmwrAJRHLUGWJC0702-40-56 10:14:00 Test Item Value Reference Range Interpretation Comments Macrocyte (test code = 1+ *ABN*(09/25/2011 A Macrocyte) 05:14:00) [facility]anoAlddrpzGQJAZHJJCU9644-75-63 10:14:00 Test Item Value Reference Range Interpretation Comments Eosinophils # (test code 0.2 See_Comment N [A utomated message] The = Eosinophils #) system whic h generated this result tra nsmitted reference range : <=0.5. The reference r jessika was not used to int erpret this result as normal/abnormal . [facility]anoIfzjqpkHCSKCVTZDA1458-83-83 10:14:00 Test Item Value Reference Range Interpretation Comments Monocytes (test code = Monocytes) 13.2 2.0-12.0 H [facility]anoLiaoxlxUELFYRPMRA8074-36-76 10:14:00 Test Item Value Reference Range Interpretation Comments Basophils # (test code 0.0 See_Comment N [Aut omated message] The = Basophils #) system which generated this result tra nsmitted reference range : <=0.2. The reference r jessika was not used to int erpret this result as normal/abnormal . [facility]anoDpeifxsURGPCSBQAN8970-91-86 10:14:00 Test Item Value Reference Range Interpretation Comments MPV (test code = MPV) 9.1 7.4-10.4 N [facility]anoDpevktoIPOCTVWNMK5125-76-42 10:14:00 Test Item Value Reference Range Interpretation Comments Platelet (test code = Platelet) 183 133-450 N [facility]anoHxhdmbgVPHLOLCOCC2607-25-43 10:14:00 Test Item Value Reference Range Interpretation Comments RDW (test code = RDW) 14.3 11.5-14.5 N [facility]anoCvuhuzeEBIMZXYOII2628-12-25 10:14:00 Test Item Value Reference Range Interpretation Comments MCHC (test code = MCHC) 34.1 32.0-36.0 N [facility]anoKxpbermWYEPOYIWRR4725-27-04 10:14:00 Test Item Value Reference Range Interpretation Comments Monocytes # (test code 0.9 See_Comment H [Aut omated message] The = Monocytes #) system which generated this result tra nsmitted reference range : <=0.8. The reference r jessika was not used to int erpret this result as normal/abnormal . [facility]anoLixjfygEJZIPVYWMM5406-50-53 10:14:00 Test Item Value Reference Range Interpretation Comments Hct (test code = Hct) 42.1 42.0-54.0 N [facility]anoSdgqnsnNVXZVNUVXI1312-26-02 10:14:00 Test Item Value Reference Range Interpretation Comments Hgb (test code = Hgb) 14.4 14.0-18.0 N [facility]anoIputtxrITNQULSAVC8832-73-53 10:14:00 Test Item Value Reference Range Interpretation Comments WBC (test code = WBC) 6.4 3.7-10.4 N [facility]anoTrvwtlcJBUSXQVALR3199-01-57 10:14:00 Test Item Value Reference Range Interpretation Comments MCV (test code = MCV) 99.3 80.0-94.0 H [facility] PlanoVtbxbndNCOUAABNJF4474-84-21 10:14:00 Test Item Value Reference Range Interpretation Comments RBC (test code = RBC) 4.24 4.70-6.10 L [facility]anoUqbpsqrOKJGFXPEDM5925-73-99 10:14:00 Test Item Value Reference Range Interpretation Comments MCH (test code = MCH) 33.9 pg 27.0-31.0 H [facility] PlanoVqyanauCCUFXEVVLT2278-73-10 10:14:00 Test Item Value Reference Range Interpretation Comments Segs (test code = Segs) 48.3 45.0-75.0 N [facility]DzbjwgsJXORPAVXKC6255-07-73 10:14:00 Test Item Value Reference Range Interpretation Comments Lymphocytes (test code = Lymphocytes) 34.9 20.0-40.0 N [facility]anoXlmuqoxLFITVXZGPX7598-65-92 10:14:00 Test Item Value Reference Range Interpretation Comments Macrocyte (test code = 1+ *ABN*(09/25/2011 A Macrocyte) 05:14:00) [facility]anoJmmggrfZTLVCTFXVP1569-12-41 10:14:00 Test Item Value Reference Range Interpretation Comments Eosinophils # (test code 0.2 See_Comment N [A utomated message] The = Eosinophils #) system whic h generated this result tra nsmitted reference range : <=0.5. The reference r jessika was not used to int erpret this result as normal/abnormal . [facility]anoLenwhfpUUAULVKLFN8554-95-09 10:14:00 Test Item Value Reference Range Interpretation Comments Monocytes (test code = Monocytes) 13.2 2.0-12.0 H [facility]anoVlsrypkKGKLAJKMDQ2898-99-28 10:14:00 Test Item Value Reference Range Interpretation Comments Basophils # (test code 0.0 See_Comment N [Aut omated message] The = Basophils #) system which generated this result tra nsmitted reference range : <=0.2. The reference r jessika was not used to int erpret this result as normal/abnormal . [facility]anoRdbjjlmCOMZPUIOOH5573-39-73 10:14:00 Test Item Value Reference Range Interpretation Comments MPV (test code = MPV) 9.1 7.4-10.4 N [facility]anoBvwannfTKFVCOUURX1250-56-32 10:14:00 Test Item Value Reference Range Interpretation Comments Platelet (test code = Platelet) 183 133-450 N [facility]anoXplmvxnZBFHJKICFJ6813-11-95 10:14:00 Test Item Value Reference Range Interpretation Comments RDW (test code = RDW) 14.3 11.5-14.5 N [facility]anoMtjzwjrVVPVRIDYBM2578-98-23 10:14:00 Test Item Value Reference Range Interpretation Comments MCHC (test code = MCHC) 34.1 32.0-36.0 N [facility]anoMaknzfnHTXIEKCHIH5915-13-95 10:14:00 Test Item Value Reference Range Interpretation Comments Hct (test code = Hct) 42.1 42.0-54.0 N [facility]anoCvwdoplJTSQFOYBZI6070-94-18 10:14:00 Test Item Value Reference Range Interpretation Comments Hgb (test code = Hgb) 14.4 14.0-18.0 N [facility]anoHchuevpYXGRHPSFHJ1422-07-86 10:14:00 Test Item Value Reference Range Interpretation Comments WBC (test code = WBC) 6.4 3.7-10.4 N [facility]anoNsknmtdOQLYBGWPEC6429-47-31 10:14:00 Test Item Value Reference Range Interpretation Comments MCV (test code = MCV) 99.3 80.0-94.0 H [facility]anoBhwepwfGDQSZBXKVU5271-97-34 10:14:00 Test Item Value Reference Range Interpretation Comments RBC (test code = RBC) 4.24 4.70-6.10 L [facility]anoHvifzmdPEDVLSHDDF0088-94-25 10:14:00 Test Item Value Reference Range Interpretation Comments MCH (test code = MCH) 33.9 pg 27.0-31.0 [facility]TxzqqnlDYGOWDKEX8286-66-75 09:04:00 Test Item Value Reference Range Interpretation Comments CO2 (test code = CO2) 25 24-32 N [facility] CenterCeatutxAKLEBKFYQ9657-89-24 09:04:00 Test Item Value Reference Range Interpretation Comments Calcium Lvl (test code = Calcium Lvl) 9.0 8.5-10.5 N [facility] CenterFkpskxmZDBHMKUUG5019-55-70 09:04:00 Test Item Value Reference Range Interpretation Comments AGAP (test code = AGAP) 13.1 10.0-20.0 N [facility]anoJxfftlhQHREHDAOUL6968-45-33 09:04:00 Test Item Value Reference Range Interpretation Comments Macrocyte (test code = 1+ *ABN*(09/18/2011 A Macrocyte) 04:04:00) [facility]anoOeicbywSCLJCQFFNU8829-03-99 09:04:00 Test Item Value Reference Range Interpretation Comments Monocytes # (test code 0.9 See_Comment H [Aut omated message] The = Monocytes #) system which generated this result tra nsmitted reference range : <=0.8. The reference r jessika was not used to int erpret this result as normal/abnormal . [facility]anoHmkdpbxYKKNUDTKVY8813-55-89 09:04:00 Test Item Value Reference Range Interpretation Comments Lymphocytes # (test code = Lymphocytes 2.1 1.0-5.5 N #) [facility]anoHarsxeiLOIUEFHAGR3830-35-78 09:04:00 Test Item Value Reference Range Interpretation Comments Segs (test code = Segs) 54.6 45.0-75.0 N [facility]anoEmfgbpyAFRVFGHJUL5212-70-43 09:04:00 Test Item Value Reference Range Interpretation Comments Eosinophils # (test code 0.2 See_Comment N [A utomated message] The = Eosinophils #) system whic h generated this result tra nsmitted reference range : <=0.5. The reference r jessika was not used to int erpret this result as normal/abnormal . [facility]anoZzhsigvHFVHSMBFHI2134-49-37 09:04:00 Test Item Value Reference Range Interpretation Comments Eosinophils (test code = 2.3 See_Comment N [A utomated message] The Eosinophils) system which ge nerated this result tra nsmitted reference range : <=4.0. The reference r jessika was not used to int erpret this result as normal/abnormal . [facility]anoDiuacpqOVDHTOZVNJ2736-76-70 09:04:00 Test Item Value Reference Range Interpretation Comments Monocytes (test code = Monocytes) 12.9 2.0-12.0 H [facility]anoQaqnhrcRMTGCEUHEP4197-62-87 09:04:00 Test Item Value Reference Range Interpretation Comments Lymphocytes (test code = Lymphocytes) 29.9 20.0-40.0 N [facility]anoEngcfahDYDIKXLXWO1761-56-52 09:04:00 Test Item Value Reference Range Interpretation Comments Basophils (test code = 0.3 See_Comment N [Aut omated message] The Basophils) system which ge nerated this result tra nsmitted reference range : <=1.0. The reference r jessika was not used to int erpret this result as normal/abnormal . [facility]anoOalqgjqVCVFBGTVXD7496-61-48 09:04:00 Test Item Value Reference Range Interpretation Comments Basophils # (test code 0.0 See_Comment N [Aut omated message] The = Basophils #) system which generated this result tra nsmitted reference range : <=0.2. The reference r jessika was not used to int erpret this result as normal/abnormal . [facility]anoPrhijgeQRLWTHIJBB7182-99-28 09:04:00 Test Item Value Reference Range Interpretation Comments Segs-Bands # (test code = Segs-Bands #) 3.8 1.5-8.1 N [facility]anoIxslkexEDCKYOFHYN0170-82-70 09:04:00 Test Item Value Reference Range Interpretation Comments Hct (test code = Hct) 43.5 42.0-54.0 N [facility]anoPnnoxmbUNGCRFECGB4392-16-93 09:04:00 Test Item Value Reference Range Interpretation Comments MCV (test code = MCV) 99.4 80.0-94.0 H [facility]anoSsaieoqCPTTKIJMFQ1427-34-24 09:04:00 Test Item Value Reference Range Interpretation Comments Hgb (test code = Hgb) 14.8 14.0-18.0 N [facility]anoKqhzdgmPXPTJCTRDU1633-10-52 09:04:00 Test Item Value Reference Range Interpretation Comments RBC (test code = RBC) 4.37 4.70-6.10 L [facility]anoFdovcwtOPRDSOQEVD2439-73-27 09:04:00 Test Item Value Reference Range Interpretation Comments WBC (test code = WBC) 6.9 3.7-10.4 N [facility]anoBtyebpcKQPSYUXJCJ8234-89-94 09:04:00 Test Item Value Reference Range Interpretation Comments Platelet (test code = Platelet) 178 133-450 N [facility]anoUhmigjgMHATXANWEC6723-14-17 09:04:00 Test Item Value Reference Range Interpretation Comments MCHC (test code = MCHC) 34.2 32.0-36.0 N [facility]anoWaepgqhIBDATYJKJL1586-13-79 09:04:00 Test Item Value Reference Range Interpretation Comments MPV (test code = MPV) 9.1 7.4-10.4 N [facility]anoWrqwfovAMDBTZIKLV0200-99-61 09:04:00 Test Item Value Reference Range Interpretation Comments RDW (test code = RDW) 13.9 11.5-14.5 N [facility]anoUlldjgdJCAEHHMMVO5675-51-46 09:04:00 Test Item Value Reference Range Interpretation Comments MCH (test code = MCH) 33.9 pg 27.0-31.0 H [facility] CenterDoipdamVKLDAANHG6923-03-38 09:04:00 Test Item Value Reference Range Interpretation Comments Glucose Lvl (test code = Glucose Lvl) 95 70-99 N [facility] CenterCrmfoxxHBBOTLCMY7087-12-80 09:04:00 Test Item Value Reference Range Interpretation Comments BUN (test code = BUN) 9 7-22 N [facility] CenterXzukfdzEFKJPVQTS8701-94-37 09:04:00 Test Item Value Reference Range Interpretation Comments Creatinine Lvl (test code = Creatinine 0.6 0.5-1.4 N Lvl) [facility] CenterKcaxxooQVVCTNMQJ9792-80-21 09:04:00 Test Item Value Reference Range Interpretation Comments Sodium Lvl (test code = Sodium Lvl) 141 135-145 N [facility] CenterKyvizvlJXUXCAJOA1271-53-88 09:04:00 Test Item Value Reference Range Interpretation Comments Potassium Lvl (test code = Potassium 4.1 3.5-5.1 N Lvl) [facility] CenterOksorzyENBFMAZIK9243-21-67 09:04:00 Test Item Value Reference Range Interpretation Comments Chloride Lvl (test code = Chloride Lvl) 107 95-109 N [facility] CenterHysdngdYLTEXCYBM4391-60-70 09:04:00 Test Item Value Reference Range Interpretation Comments Calcium Lvl (test code = Calcium Lvl) 9.0 8.5-10.5 N [facility] CenterQgboxtvFMLNZVXZP7740-63-60 09:04:00 Test Item Value Reference Range Interpretation Comments AGAP (test code = AGAP) 13.1 10.0-20.0 N [facility]anoSjwpfouWHJRQYTJIX0525-46-35 09:04:00 Test Item Value Reference Range Interpretation Comments Macrocyte (test code = 1+ *ABN*(09/18/2011 A Macrocyte) 04:04:00) [facility]anoYrzbjdvJTBQZFNXBU0152-35-13 09:04:00 Test Item Value Reference Range Interpretation Comments Monocytes # (test code 0.9 See_Comment H [Aut omated message] The = Monocytes #) system which generated this result tra nsmitted reference range : <=0.8. The reference r jessika was not used to int erpret this result as normal/abnormal . [facility]anoDovblorYAJFNRVAAH0672-69-31 09:04:00 Test Item Value Reference Range Interpretation Comments Lymphocytes # (test code = Lymphocytes 2.1 1.0-5.5 N #) [facility]anoJnoujzlHVLVEJESCU8750-59-21 09:04:00 Test Item Value Reference Range Interpretation Comments Segs (test code = Segs) 54.6 45.0-75.0 N [facility]anoUmjfqtcSMCRHQHUVM5416-55-26 09:04:00 Test Item Value Reference Range Interpretation Comments Eosinophils # (test code 0.2 See_Comment N [A utomated message] The = Eosinophils #) system whic h generated this result tra nsmitted reference range : <=0.5. The reference r jessika was not used to int erpret this result as normal/abnormal . [facility]anoQnnsttxMIQDHJKEQX4653-32-20 09:04:00 Test Item Value Reference Range Interpretation Comments Eosinophils (test code = 2.3 See_Comment N [A utomated message] The Eosinophils) system which ge nerated this result tra nsmitted reference range : <=4.0. The reference r jessika was not used to int erpret this result as normal/abnormal . [facility]anoDikxlgnAPYIHPBFMF0186-79-68 09:04:00 Test Item Value Reference Range Interpretation Comments Monocytes (test code = Monocytes) 12.9 2.0-12.0 H [facility]anoCmuzizcVWJCKCZUQZ3592-42-57 09:04:00 Test Item Value Reference Range Interpretation Comments Lymphocytes (test code = Lymphocytes) 29.9 20.0-40.0 N [facility]anoWckqszzXUQUOXOQKZ4673-54-57 09:04:00 Test Item Value Reference Range Interpretation Comments Basophils (test code = 0.3 See_Comment N [Aut omated message] The Basophils) system which ge nerated this result tra nsmitted reference range : <=1.0. The reference r jessika was not used to int erpret this result as normal/abnormal . [facility]anoCtlpiwpEQLELTJIPY0409-67-35 09:04:00 Test Item Value Reference Range Interpretation Comments Basophils # (test code 0.0 See_Comment N [Aut omated message] The = Basophils #) system which generated this result tra nsmitted reference range : <=0.2. The reference r jessika was not used to int erpret this result as normal/abnormal . [facility]anoQpfnldeDFPXVVBYVE0509-89-75 09:04:00 Test Item Value Reference Range Interpretation Comments Segs-Bands # (test code = Segs-Bands #) 3.8 1.5-8.1 N [facility]anoPbyptseODEIFXWPBK0803-06-29 09:04:00 Test Item Value Reference Range Interpretation Comments Hct (test code = Hct) 43.5 42.0-54.0 N [facility]anoEsvecbgNARLFLICMU9774-75-33 09:04:00 Test Item Value Reference Range Interpretation Comments MCV (test code = MCV) 99.4 80.0-94.0 H [facility]anoAicdvzgNKOVJFUFOF1642-62-48 09:04:00 Test Item Value Reference Range Interpretation Comments Hgb (test code = Hgb) 14.8 14.0-18.0 N [facility]anoMviagaoQWRRTIPUTU3593-77-12 09:04:00 Test Item Value Reference Range Interpretation Comments RBC (test code = RBC) 4.37 4.70-6.10 L [facility]anoPxwvdiaSCTXXTBNWB4851-29-03 09:04:00 Test Item Value Reference Range Interpretation Comments WBC (test code = WBC) 6.9 3.7-10.4 N [facility]anoIclbnosWUJYUMNFDV0327-10-55 09:04:00 Test Item Value Reference Range Interpretation Comments Platelet (test code = Platelet) 178 133-450 N [facility]anoLvsalevWCKRVEOSDG4277-38-68 09:04:00 Test Item Value Reference Range Interpretation Comments MCHC (test code = MCHC) 34.2 32.0-36.0 N [facility]anoZeqnsflGCYAPHLCGV8013-66-06 09:04:00 Test Item Value Reference Range Interpretation Comments MPV (test code = MPV) 9.1 7.4-10.4 N [facility]anoFwurejbLGRNFIPNPC0600-01-84 09:04:00 Test Item Value Reference Range Interpretation Comments RDW (test code = RDW) 13.9 11.5-14.5 N [facility]anoNflilolOBINNOIWXI7494-22-86 09:04:00 Test Item Value Reference Range Interpretation Comments MCH (test code = MCH) 33.9 pg 27.0-31.0 H [facility] CenterApejhbpECLJMLZQM0538-12-76 09:04:00 Test Item Value Reference Range Interpretation Comments Glucose Lvl (test code = Glucose Lvl) 95 70-99 N [facility] CenterCipjlkyMQCDSYIUL8725-51-46 09:04:00 Test Item Value Reference Range Interpretation Comments BUN (test code = BUN) 9 7-22 N [facility] CenterAdsuxtjTNNUYLPUV6935-71-44 09:04:00 Test Item Value Reference Range Interpretation Comments Creatinine Lvl (test code = Creatinine 0.6 0.5-1.4 N Lvl) [facility] CenterNqdrjmvAZCTXOZVO8314-68-41 09:04:00 Test Item Value Reference Range Interpretation Comments Sodium Lvl (test code = Sodium Lvl) 141 135-145 N [facility] CenterZxsiofsFLTTFOGKE6530-24-10 09:04:00 Test Item Value Reference Range Interpretation Comments Potassium Lvl (test code = Potassium 4.1 3.5-5.1 N Lvl) [facility] CenterAkikdyqWTCPCAWPK9603-85-14 09:04:00 Test Item Value Reference Range Interpretation Comments Chloride Lvl (test code = Chloride Lvl) 107 95-109 N [facility] CenterOnmywejIOFNJBHNE8411-73-08 09:04:00 Test Item Value Reference Range Interpretation Comments CO2 (test code = CO2) 25 24-32 N [facility] CenterPoggwrkCJZMOVREZ4732-64-27 09:04:00 Test Item Value Reference Range Interpretation Comments Calcium Lvl (test code = Calcium Lvl) 9.0 8.5-10.5 N [facility] CenterXinrpcgKJEMQBVEO3386-05-92 09:04:00 Test Item Value Reference Range Interpretation Comments AGAP (test code = AGAP) 13.1 10.0-20.0 N [facility]anoMlvdtehFWXXUIIJOC5883-17-78 09:04:00 Test Item Value Reference Range Interpretation Comments Macrocyte (test code = 1+ *ABN*(09/18/2011 A Macrocyte) 04:04:00) [facility]anoLynudpdFUFSEURKWT5506-79-80 09:04:00 Test Item Value Reference Range Interpretation Comments Monocytes # (test code 0.9 See_Comment H [Aut omated message] The = Monocytes #) system which generated this result tra nsmitted reference range : <=0.8. The reference r jessika was not used to int erpret this result as normal/abnormal . [facility]anoCrjbomoNDKTZCFDEH1437-70-20 09:04:00 Test Item Value Reference Range Interpretation Comments Lymphocytes # (test code = Lymphocytes 2.1 1.0-5.5 N #) [facility]anoExpzjisLJPZXRGNGV7533-94-66 09:04:00 Test Item Value Reference Range Interpretation Comments Segs (test code = Segs) 54.6 45.0-75.0 N [facility]anoWtooporYTDYXNFWZJ7857-55-00 09:04:00 Test Item Value Reference Range Interpretation Comments Eosinophils # (test code 0.2 See_Comment N [A utomated message] The = Eosinophils #) system whic h generated this result tra nsmitted reference range : <=0.5. The reference r jessika was not used to int erpret this result as normal/abnormal . [facility]anoXedmgpfUTAKTKZBJB1260-70-30 09:04:00 Test Item Value Reference Range Interpretation Comments Eosinophils (test code = 2.3 See_Comment N [A utomated message] The Eosinophils) system which ge nerated this result tra nsmitted reference range : <=4.0. The reference r jessika was not used to int erpret this result as normal/abnormal . [facility]anoWukqfytKMRKITLXRX8296-07-29 09:04:00 Test Item Value Reference Range Interpretation Comments Monocytes (test code = Monocytes) 12.9 2.0-12.0 H [facility]anoSlqpqjsMGNXSMZHIU6383-97-52 09:04:00 Test Item Value Reference Range Interpretation Comments Lymphocytes (test code = Lymphocytes) 29.9 20.0-40.0 N [facility]anoRkufftfVHHJUBJQVG7280-15-68 09:04:00 Test Item Value Reference Range Interpretation Comments Basophils (test code = 0.3 See_Comment N [Aut omated message] The Basophils) system which ge nerated this result tra nsmitted reference range : <=1.0. The reference r jessika was not used to int erpret this result as normal/abnormal . [facility]anoKviamweZNXTDHKFWV9520-85-21 09:04:00 Test Item Value Reference Range Interpretation Comments Basophils # (test code 0.0 See_Comment N [Aut omated message] The = Basophils #) system which generated this result tra nsmitted reference range : <=0.2. The reference r jessika was not used to int erpret this result as normal/abnormal . [facility]anoHzaawjbBKBSFYFWVR8260-05-42 09:04:00 Test Item Value Reference Range Interpretation Comments Segs-Bands # (test code = Segs-Bands #) 3.8 1.5-8.1 N [facility]anoRkcoskqFIITJUTETQ9942-42-49 09:04:00 Test Item Value Reference Range Interpretation Comments Hct (test code = Hct) 43.5 42.0-54.0 N [facility]anoDgcnbjoFWWLPXYVEH6215-29-53 09:04:00 Test Item Value Reference Range Interpretation Comments MCV (test code = MCV) 99.4 80.0-94.0 H [facility]anoGkhplscWDJJPMEGBS5091-21-86 09:04:00 Test Item Value Reference Range Interpretation Comments Hgb (test code = Hgb) 14.8 14.0-18.0 N [facility]anoTmivjluESNPQCXCVS8871-47-45 09:04:00 Test Item Value Reference Range Interpretation Comments RBC (test code = RBC) 4.37 4.70-6.10 L [facility]anoWjwxiluVISPEKNBNV8784-85-48 09:04:00 Test Item Value Reference Range Interpretation Comments WBC (test code = WBC) 6.9 3.7-10.4 N [facility]anoZhlhxvgBHFIUAOPHU4284-42-07 09:04:00 Test Item Value Reference Range Interpretation Comments Platelet (test code = Platelet) 178 133-450 N [facility]anoDyompqtPEHSKIFLAB7879-86-62 09:04:00 Test Item Value Reference Range Interpretation Comments MCHC (test code = MCHC) 34.2 32.0-36.0 N [facility]anoFlxyknbELRXUGIFTB4136-74-27 09:04:00 Test Item Value Reference Range Interpretation Comments MPV (test code = MPV) 9.1 7.4-10.4 N [facility]anoJtmkucgMSGTFZTCBE8615-71-86 09:04:00 Test Item Value Reference Range Interpretation Comments RDW (test code = RDW) 13.9 11.5-14.5 N [facility]anoUicqustPIQVPROKFD4774-86-45 09:04:00 Test Item Value Reference Range Interpretation Comments MCH (test code = MCH) 33.9 pg 27.0-31.0 H [facility] CenterMmvllprOAVSCUKIG5258-61-49 09:04:00 Test Item Value Reference Range Interpretation Comments Glucose Lvl (test code = Glucose Lvl) 95 70-99 N [facility] CenterQhdhwbmEYCJIWBOE0819-94-71 09:04:00 Test Item Value Reference Range Interpretation Comments BUN (test code = BUN) 9 7-22 N [facility] CenterBhuqmodMDPOOVHWZ0329-80-32 09:04:00 Test Item Value Reference Range Interpretation Comments Creatinine Lvl (test code = Creatinine 0.6 0.5-1.4 N Lvl) [facility] CenterGmruvqiOVVPRCWDI5456-49-37 09:04:00 Test Item Value Reference Range Interpretation Comments Sodium Lvl (test code = Sodium Lvl) 141 135-145 N [facility] CenterBuvxfsbHRLXJONXQ1381-48-71 09:04:00 Test Item Value Reference Range Interpretation Comments Potassium Lvl (test code = Potassium 4.1 3.5-5.1 N Lvl) [facility] CenterKhgbrasTOECFZQXP4986-45-69 09:04:00 Test Item Value Reference Range Interpretation Comments Chloride Lvl (test code = Chloride Lvl) 107 95-109 N [facility] CenterAlttjpsWKQBHGQOD1064-25-14 09:04:00 Test Item Value Reference Range Interpretation Comments CO2 (test code = CO2) 25 24-32 N [facility] CenterUbnmgxcWXFIKNYIQ7862-88-29 09:04:00 Test Item Value Reference Range Interpretation Comments Calcium Lvl (test code = Calcium Lvl) 9.0 8.5-10.5 N [facility] CenterDvorsesKISAMNSLL5867-37-02 09:04:00 Test Item Value Reference Range Interpretation Comments AGAP (test code = AGAP) 13.1 10.0-20.0 N [facility]anoAhlztqvSUJEZHZZMT7939-51-07 09:04:00 Test Item Value Reference Range Interpretation Comments Macrocyte (test code = 1+ *ABN*(09/18/2011 A Macrocyte) 04:04:00) [facility]anoIaxvdyqARJKCWZRCR5952-17-43 09:04:00 Test Item Value Reference Range Interpretation Comments Monocytes # (test code 0.9 See_Comment H [Aut omated message] The = Monocytes #) system which generated this result tra nsmitted reference range : <=0.8. The reference r jessika was not used to int erpret this result as normal/abnormal . [facility]anoHlchxlcJONOMWPKYS3579-91-63 09:04:00 Test Item Value Reference Range Interpretation Comments Lymphocytes # (test code = Lymphocytes 2.1 1.0-5.5 N #) [facility]anoXxlmaqsKOLBFOKUYI1471-04-74 09:04:00 Test Item Value Reference Range Interpretation Comments Segs (test code = Segs) 54.6 45.0-75.0 N [facility]anoVpvlzibMXQYKGLBJF7275-63-03 09:04:00 Test Item Value Reference Range Interpretation Comments Eosinophils # (test code 0.2 See_Comment N [A utomated message] The = Eosinophils #) system whic h generated this result tra nsmitted reference range : <=0.5. The reference r jessika was not used to int erpret this result as normal/abnormal . [facility]anoTbsunlhSTEVJOIYMX5978-20-96 09:04:00 Test Item Value Reference Range Interpretation Comments Eosinophils (test code = 2.3 See_Comment N [A utomated message] The Eosinophils) system which ge nerated this result tra nsmitted reference range : <=4.0. The reference r jessika was not used to int erpret this result as normal/abnormal . [facility]anoAeevrexWXBMIUCMXA5141-27-88 09:04:00 Test Item Value Reference Range Interpretation Comments Monocytes (test code = Monocytes) 12.9 2.0-12.0 H [facility]anoRxkhrgmXRBLHBLGVO0918-27-35 09:04:00 Test Item Value Reference Range Interpretation Comments Lymphocytes (test code = Lymphocytes) 29.9 20.0-40.0 N [facility]anoJfmbkqmGSFILGHDZB9227-15-74 09:04:00 Test Item Value Reference Range Interpretation Comments Basophils (test code = 0.3 See_Comment N [Aut omated message] The Basophils) system which ge nerated this result tra nsmitted reference range : <=1.0. The reference r jessika was not used to int erpret this result as normal/abnormal . [facility]GcbsireHHHWZVEMDL9449-12-09 09:04:00 Test Item Value Reference Range Interpretation Comments Basophils # (test code 0.0 See_Comment N [Aut omated message] The = Basophils #) system which generated this result tra nsmitted reference range : <=0.2. The reference r jessika was not used to int erpret this result as normal/abnormal . [facility]anoIzsqnskCIROPUONIU4774-29-30 09:04:00 Test Item Value Reference Range Interpretation Comments Segs-Bands # (test code = Segs-Bands #) 3.8 1.5-8.1 N [facility]anoCnomdevTHRCKUIALV2651-38-67 09:04:00 Test Item Value Reference Range Interpretation Comments Hct (test code = Hct) 43.5 42.0-54.0 N [facility]anoAglcmikAHMFUQJLAK0051-59-06 09:04:00 Test Item Value Reference Range Interpretation Comments MCV (test code = MCV) 99.4 80.0-94.0 H [facility]anoOvvkualTNKOWJWNCW1974-04-36 09:04:00 Test Item Value Reference Range Interpretation Comments Hgb (test code = Hgb) 14.8 14.0-18.0 N [facility]anoNiodnmaYKNIBUQQYX6312-62-10 09:04:00 Test Item Value Reference Range Interpretation Comments RBC (test code = RBC) 4.37 4.70-6.10 L [facility]anoQojfhieRPNMVPZGFH1356-01-16 09:04:00 Test Item Value Reference Range Interpretation Comments WBC (test code = WBC) 6.9 3.7-10.4 N [facility]anoKpyfweeWJKMCGRVDY1139-72-94 09:04:00 Test Item Value Reference Range Interpretation Comments Platelet (test code = Platelet) 178 133-450 N [facility]anoDrcwnzpFHDLYCTRMC3547-28-96 09:04:00 Test Item Value Reference Range Interpretation Comments MCHC (test code = MCHC) 34.2 32.0-36.0 N [facility]anoEdigiprAMJSWEMZQI1997-88-84 09:04:00 Test Item Value Reference Range Interpretation Comments MPV (test code = MPV) 9.1 7.4-10.4 N [facility]anoSumpedyLRDQNWTQNG5561-47-76 09:04:00 Test Item Value Reference Range Interpretation Comments RDW (test code = RDW) 13.9 11.5-14.5 N [facility]anoVkdiqikXMMGXKKSIK9710-38-81 09:04:00 Test Item Value Reference Range Interpretation Comments MCH (test code = MCH) 33.9 pg 27.0-31.0 [facility]UieiowfZJQCPPIOK2225-67-28 09:04:00 Test Item Value Reference Range Interpretation Comments Glucose Lvl (test code = Glucose Lvl) 95 70-99 N [facility] CenterMnhoideBWMSZVJNO2972-17-43 09:04:00 Test Item Value Reference Range Interpretation Comments BUN (test code = BUN) 9 7-22 N [facility] CenterHvkjqalMGAGNYXLZ2088-27-52 09:04:00 Test Item Value Reference Range Interpretation Comments Creatinine Lvl (test code = Creatinine 0.6 0.5-1.4 N Lvl) [facility] CenterUpqhrsmWJFUZYVIK7562-31-57 09:04:00 Test Item Value Reference Range Interpretation Comments Sodium Lvl (test code = Sodium Lvl) 141 135-145 N [facility] CenterPbxwnexHBVHMYDOU4011-99-10 09:04:00 Test Item Value Reference Range Interpretation Comments Potassium Lvl (test code = Potassium 4.1 3.5-5.1 N Lvl) [facility] CenterLxigawoLFOVICWLS8820-11-10 09:04:00 Test Item Value Reference Range Interpretation Comments Chloride Lvl (test code = Chloride Lvl) 107 95-109 N [facility] CenterSrchcbmZFNZVSLDD4177-11-29 09:04:00 Test Item Value Reference Range Interpretation Comments CO2 (test code = CO2) 25 24-32 N [facility] CenterSzzzmovPOADEJAXD9381-21-24 09:04:00 Test Item Value Reference Range Interpretation Comments Calcium Lvl (test code = Calcium Lvl) 9.0 8.5-10.5 N [facility] CenterOzhduwiOWTOMOEEV8786-31-91 09:04:00 Test Item Value Reference Range Interpretation Comments AGAP (test code = AGAP) 13.1 10.0-20.0 N [facility]anoHjqjuruHXQIRKKAYX7306-70-32 09:04:00 Test Item Value Reference Range Interpretation Comments Macrocyte (test code = 1+ *ABN*(09/18/2011 A Macrocyte) 04:04:00) [facility]anoOzunxqsBTGOCIBTZH5789-72-65 09:04:00 Test Item Value Reference Range Interpretation Comments Monocytes # (test code 0.9 See_Comment H [Aut omated message] The = Monocytes #) system which generated this result tra nsmitted reference range : <=0.8. The reference r jessika was not used to int erpret this result as normal/abnormal . [facility]anoZmjxclvJOTVITVVNS7505-02-25 09:04:00 Test Item Value Reference Range Interpretation Comments Lymphocytes # (test code = Lymphocytes 2.1 1.0-5.5 N #) [facility]anoVjmwbvtRQGUYROLZQ5776-36-61 09:04:00 Test Item Value Reference Range Interpretation Comments Segs (test code = Segs) 54.6 45.0-75.0 N [facility]anoPyikywtDHXRFASQUV2908-07-76 09:04:00 Test Item Value Reference Range Interpretation Comments Eosinophils # (test code 0.2 See_Comment N [A utomated message] The = Eosinophils #) system whic h generated this result tra nsmitted reference range : <=0.5. The reference r jessika was not used to int erpret this result as normal/abnormal . [facility]anoHubmfvjBPTNXTJXJI5350-29-65 09:04:00 Test Item Value Reference Range Interpretation Comments Eosinophils (test code = 2.3 See_Comment N [A utomated message] The Eosinophils) system which ge nerated this result tra nsmitted reference range : <=4.0. The reference r jessika was not used to int erpret this result as normal/abnormal . [facility]anoEvdyokuYCKLXGIBHC2078-41-76 09:04:00 Test Item Value Reference Range Interpretation Comments Monocytes (test code = Monocytes) 12.9 2.0-12.0 H [facility]anoAhwrmseFYNSHPRTYF7121-24-92 09:04:00 Test Item Value Reference Range Interpretation Comments Lymphocytes (test code = Lymphocytes) 29.9 20.0-40.0 N [facility]anoPrpirziLEMLSFUTYS2291-27-37 09:04:00 Test Item Value Reference Range Interpretation Comments Basophils (test code = 0.3 See_Comment N [Aut omated message] The Basophils) system which ge nerated this result tra nsmitted reference range : <=1.0. The reference r jessika was not used to int erpret this result as normal/abnormal . [facility]anoLuioubkIAZVRZURCJ2313-57-25 09:04:00 Test Item Value Reference Range Interpretation Comments Basophils # (test code 0.0 See_Comment N [Aut omated message] The = Basophils #) system which generated this result tra nsmitted reference range : <=0.2. The reference r jessika was not used to int erpret this result as normal/abnormal . [facility]anoZttkcooMTTRQVDCZO3481-31-23 09:04:00 Test Item Value Reference Range Interpretation Comments Segs-Bands # (test code = Segs-Bands #) 3.8 1.5-8.1 N [facility]anoEzxcqkqHEZCMQTFKC3385-08-87 09:04:00 Test Item Value Reference Range Interpretation Comments Hct (test code = Hct) 43.5 42.0-54.0 N [facility]anoOfcmzypSLVNGLIRJS5252-36-49 09:04:00 Test Item Value Reference Range Interpretation Comments MCV (test code = MCV) 99.4 80.0-94.0 H [facility]anoDdonvbjNKFGFVGPRC5915-62-21 09:04:00 Test Item Value Reference Range Interpretation Comments Hgb (test code = Hgb) 14.8 14.0-18.0 N [facility]anoDldulxcJOCOLBYECO9061-17-88 09:04:00 Test Item Value Reference Range Interpretation Comments RBC (test code = RBC) 4.37 4.70-6.10 L [facility]anoAedacxoDIKXQWOPOV3329-92-43 09:04:00 Test Item Value Reference Range Interpretation Comments WBC (test code = WBC) 6.9 3.7-10.4 N [facility]anoXmjxqfqYKQAWHAJVP2528-33-81 09:04:00 Test Item Value Reference Range Interpretation Comments Platelet (test code = Platelet) 178 133-450 N [facility]anoBumzeriJQFNKBRHPP2635-44-61 09:04:00 Test Item Value Reference Range Interpretation Comments MCHC (test code = MCHC) 34.2 32.0-36.0 N [facility]anoWqaeubjJORCVYAMCF3129-43-56 09:04:00 Test Item Value Reference Range Interpretation Comments MPV (test code = MPV) 9.1 7.4-10.4 N [facility]anoNztnndcAMDAQZWUQO3440-43-05 09:04:00 Test Item Value Reference Range Interpretation Comments RDW (test code = RDW) 13.9 11.5-14.5 N [facility]anoPzkvaetDZMFKVOKHW1978-61-65 09:04:00 Test Item Value Reference Range Interpretation Comments MCH (test code = MCH) 33.9 pg 27.0-31.0 H [facility] CenterLncfaimESAMKELOW9240-17-35 09:04:00 Test Item Value Reference Range Interpretation Comments Glucose Lvl (test code = Glucose Lvl) 95 70-99 N [facility] CenterUlipchdKNJDPHJFC8093-00-70 09:04:00 Test Item Value Reference Range Interpretation Comments BUN (test code = BUN) 9 7-22 N [facility] CenterBxyqoroXFRNEZCTJ1623-73-56 09:04:00 Test Item Value Reference Range Interpretation Comments Creatinine Lvl (test code = Creatinine 0.6 0.5-1.4 N Lvl) [facility] CenterEeglitsJFPXDDFCR6924-52-43 09:04:00 Test Item Value Reference Range Interpretation Comments Sodium Lvl (test code = Sodium Lvl) 141 135-145 N [facility] CenterTyutwjmDFMXIEETV4549-85-96 09:04:00 Test Item Value Reference Range Interpretation Comments Potassium Lvl (test code = Potassium 4.1 3.5-5.1 N Lvl) [facility] CenterYmqwjneQIWSDBALT7898-21-40 09:04:00 Test Item Value Reference Range Interpretation Comments Chloride Lvl (test code = Chloride Lvl) 107 95-109 N [facility] CenterEbrqufqLZHHRWTIT0425-57-92 09:04:00 Test Item Value Reference Range Interpretation Comments CO2 (test code = CO2) 25 24-32 N [facility] CenterUefbgfrGJIYPPZWN6692-16-29 09:04:00 Test Item Value Reference Range Interpretation Comments Calcium Lvl (test code = Calcium Lvl) 9.0 8.5-10.5 N [facility] CenterUdaeqhrWOBDHBQIR0055-76-32 09:04:00 Test Item Value Reference Range Interpretation Comments AGAP (test code = AGAP) 13.1 10.0-20.0 N [facility]anoHvogqukHBKZVKJCJO6141-04-60 09:04:00 Test Item Value Reference Range Interpretation Comments Macrocyte (test code = 1+ *ABN*(09/18/2011 A Macrocyte) 04:04:00) [facility]anoMqvtrmiMSUWDHSOXN9676-26-46 09:04:00 Test Item Value Reference Range Interpretation Comments Monocytes # (test code 0.9 See_Comment H [Aut omated message] The = Monocytes #) system which generated this result tra nsmitted reference range : <=0.8. The reference r jessika was not used to int erpret this result as normal/abnormal . [facility]anoDximvokJXLGCXVXZX1457-01-88 09:04:00 Test Item Value Reference Range Interpretation Comments Lymphocytes # (test code = Lymphocytes 2.1 1.0-5.5 N #) [facility]anoWgfsdgnMKGLUWNBZS6038-54-83 09:04:00 Test Item Value Reference Range Interpretation Comments Segs (test code = Segs) 54.6 45.0-75.0 N [facility]anoFxhrbqgYGLAEHLZAQ6455-35-06 09:04:00 Test Item Value Reference Range Interpretation Comments Eosinophils # (test code 0.2 See_Comment N [A utomated message] The = Eosinophils #) system whic h generated this result tra nsmitted reference range : <=0.5. The reference r jessika was not used to int erpret this result as normal/abnormal . [facility]anoMwsulvfJZHIQMENHT5854-82-95 09:04:00 Test Item Value Reference Range Interpretation Comments Eosinophils (test code = 2.3 See_Comment N [A utomated message] The Eosinophils) system which ge nerated this result tra nsmitted reference range : <=4.0. The reference r jessika was not used to int erpret this result as normal/abnormal . [facility]anoTuwfqowZAHKFJMPHG8700-82-29 09:04:00 Test Item Value Reference Range Interpretation Comments Monocytes (test code = Monocytes) 12.9 2.0-12.0 H [facility]anoQbloxlpKYGOHGCNFE4178-71-47 09:04:00 Test Item Value Reference Range Interpretation Comments Lymphocytes (test code = Lymphocytes) 29.9 20.0-40.0 N [facility]anoVcngscqLASUPJPAUD3376-23-08 09:04:00 Test Item Value Reference Range Interpretation Comments Basophils (test code = 0.3 See_Comment N [Aut omated message] The Basophils) system which ge nerated this result tra nsmitted reference range : <=1.0. The reference r jessika was not used to int erpret this result as normal/abnormal . [facility]anoOqkiqmcZMASIPJLHJ1738-85-96 09:04:00 Test Item Value Reference Range Interpretation Comments Basophils # (test code 0.0 See_Comment N [Aut omated message] The = Basophils #) system which generated this result tra nsmitted reference range : <=0.2. The reference r jessika was not used to int erpret this result as normal/abnormal . [facility]anoMraazimVTLGQTBZGM0882-71-31 09:04:00 Test Item Value Reference Range Interpretation Comments Segs-Bands # (test code = Segs-Bands #) 3.8 1.5-8.1 N [facility]anoWffrkqzWLAPHZDEDI9780-34-65 09:04:00 Test Item Value Reference Range Interpretation Comments Hct (test code = Hct) 43.5 42.0-54.0 N [facility]anoPdabqmtXVAKYJMDNF5763-61-79 09:04:00 Test Item Value Reference Range Interpretation Comments MCV (test code = MCV) 99.4 80.0-94.0 H [facility]anoPacajfuWNSABQQJWK7261-27-90 09:04:00 Test Item Value Reference Range Interpretation Comments Hgb (test code = Hgb) 14.8 14.0-18.0 N [facility]anoFglyzatOMBNTOBYSE6647-39-48 09:04:00 Test Item Value Reference Range Interpretation Comments RBC (test code = RBC) 4.37 4.70-6.10 L [facility]anoDwkycfdUILSLFJKNQ3980-92-14 09:04:00 Test Item Value Reference Range Interpretation Comments WBC (test code = WBC) 6.9 3.7-10.4 N [facility]anoAlbvfkbLFEQLDDYHY9898-86-40 09:04:00 Test Item Value Reference Range Interpretation Comments Platelet (test code = Platelet) 178 133-450 N [facility]anoLixftsyDCBIBNYTGU3683-94-78 09:04:00 Test Item Value Reference Range Interpretation Comments MCHC (test code = MCHC) 34.2 32.0-36.0 N [facility]anoUbceyttPPJAADHPPE0184-16-50 09:04:00 Test Item Value Reference Range Interpretation Comments MPV (test code = MPV) 9.1 7.4-10.4 N [facility]anoTgrsevhOQPCVPAUBW4181-99-87 09:04:00 Test Item Value Reference Range Interpretation Comments RDW (test code = RDW) 13.9 11.5-14.5 N [facility]anoBsgswuaPBJMDIQHER7231-44-26 09:04:00 Test Item Value Reference Range Interpretation Comments MCH (test code = MCH) 33.9 pg 27.0-31.0 H [facility] CenterDyaasctULVWRCUVI7531-75-00 09:04:00 Test Item Value Reference Range Interpretation Comments Glucose Lvl (test code = Glucose Lvl) 95 70-99 N [facility] CenterTasmdsrMISXAXKRS8797-32-70 09:04:00 Test Item Value Reference Range Interpretation Comments BUN (test code = BUN) 9 7-22 N [facility] CenterVetdciaOMPDKNXJN9133-18-49 09:04:00 Test Item Value Reference Range Interpretation Comments Creatinine Lvl (test code = Creatinine 0.6 0.5-1.4 N Lvl) [facility] CenterSmpajizDNBEVGKQE0658-85-77 09:04:00 Test Item Value Reference Range Interpretation Comments Sodium Lvl (test code = Sodium Lvl) 141 135-145 N [facility] CenterBetwpwvASQYQMYFN7618-47-31 09:04:00 Test Item Value Reference Range Interpretation Comments Potassium Lvl (test code = Potassium 4.1 3.5-5.1 N Lvl) [facility] CenterZbutndjNUQTZYBES5246-89-75 09:04:00 Test Item Value Reference Range Interpretation Comments Chloride Lvl (test code = Chloride Lvl) 107 95-109 N [facility] CenterKsyiaudHSVCAJAQW3874-39-65 09:04:00 Test Item Value Reference Range Interpretation Comments CO2 (test code = CO2) 25 24-32 N [facility]ViltqpyXcogcwjtvdqy7327-82-61 14:00:00 Test Item Value Reference Range Interpretation Comments Culture: Urine (test code = Culture: Urine) [facility]UzoaoifJqghrsmikpma4016-87-78 14:00:00 Test Item Value Reference Range Interpretation Comments Culture: Urine (test code = Culture: Urine) [facility] CampusRmpttfxPqbqgarxodtw4084-61-30 14:00:00 Test Item Value Reference Range Interpretation Comments Culture: Urine (test code = Culture: Urine) [facility] CampusTfpwjumUnacvvlfynyh4349-21-32 14:00:00 Test Item Value Reference Range Interpretation Comments Culture: Urine (test code = Culture: Urine) [facility] CampusAluiftsPocjnzcvrzrt5012-40-09 14:00:00 Test Item Value Reference Range Interpretation Comments Culture: Urine (test code = Culture: Urine) [facility] CampusYrpfqppCcfdwldaijei5561-30-86 14:00:00 Test Item Value Reference Range Interpretation Comments Culture: Urine (test code = Culture: Urine) [facility]VadqsctNZDJYKZNFV0656-57-75 13:25:00 Test Item Value Reference Range Interpretation Comments UA Urobilinogen (test code *NA*(09/16/2011 0.1-1.0 = UA Urobilinogen) 08:25:00) [facility] CenterVfzjdvcLLPFBJJYJC9477-46-37 13:25:00 Test Item Value Reference Range Interpretation Comments UA WBC (test code = no gt See_Comment N [Automa lorie message] The UA WBC) system which ge nerated this result transmit lorie reference range : <=5. The reference range was not used to interpr et this result as asher l/abnormal. [facility] CenterNagpdfjACJWCTZTUJ3283-65-15 13:25:00 Test Item Value Reference Range Interpretation Comments UA RBC (test code = 1 See_Comment N [Automa lorie message] The UA RBC) system which ge nerated this result transmit lorie reference range : <=2. The reference range was not used to interpr et this result as asher l/abnormal. [facility] CenterDmmrgkqHQJEAPZLPQ2844-68-10 13:25:00 Test Item Value Reference Range Interpretation Comments UA Mucus (test code = Few /LPF UA Mucus) *NA*(09/16/2011 08:25:00) [facility] CenterUfnhybnKAEBMALTKC0680-75-34 13:25:00 Test Item Value Reference Range Interpretation Comments UA Ketones (test code Negative mg/dL = UA Ketones) *NA*(09/16/2011 08:25:00) [facility] CenterTzmuuocGMSWYGCBOD6029-03-61 13:25:00 Test Item Value Reference Range Interpretation Comments UA Bili (test code = Negative *NA*(09/16/2011 UA Bili) 08:25:00) [facility] CenterRubdjtlTNUIPEMFCC0798-52-65 13:25:00 Test Item Value Reference Range Interpretation Comments UA Blood (test code = Negative (09/16/2011 N UA Blood) 08:25:00) [facility] CenterWcwftbrZROAGJPUNH3924-71-41 13:25:00 Test Item Value Reference Range Interpretation Comments UA Nitrite (test code Negative (09/16/2011 N = UA Nitrite) 08:25:00) [facility] CenterBkspkkfOWTSJCWQIU9464-63-02 13:25:00 Test Item Value Reference Range Interpretation Comments UA Leuk Est (test Negative (09/16/2011 N code = UA Leuk Est) 08:25:00) [facility] CenterOeeejnmJJDUPYCPJF6054-03-23 13:25:00 Test Item Value Reference Range Interpretation Comments UA Sq Epi (test code Occasional /LPF = UA Sq Epi) *NA*(09/16/2011 08:25:00) [facility] CenterLajcdstIIOIPGPJNE9188-69-26 13:25:00 Test Item Value Reference Range Interpretation Comments UA Glucose (test code Negative mg/dL = UA Glucose) *NA*(09/16/2011 08:25:00) [facility] CenterTnadgsyYWYXAEJAFI4802-47-25 13:25:00 Test Item Value Reference Range Interpretation Comments UA Protein (test code Negative mg/dL N = UA Protein) (09/16/2011 08:25:00) [facility] CenterOgwtfrvUZOXHPEINV3804-35-93 13:25:00 Test Item Value Reference Range Interpretation Comments UA Color (test code = Yellow *NA*(09/16/2011 UA Color) 08:25:00) [facility] CenterYmcedexCKXJCZWFOM2148-90-29 13:25:00 Test Item Value Reference Range Interpretation Comments UA pH (test code = UA pH) 5.5 5.0-8.0 N [facility] CenterAbrbjlsHLJYGNDEOZ5936-14-63 13:25:00 Test Item Value Reference Range Interpretation Comments UA Spec Grav (test code = UA Spec Grav) 1.017 N [facility] CenterGvdhgbxWMQQMZYGOR6704-98-56 13:25:00 Test Item Value Reference Range Interpretation Comments UA Turbidity (test code = Clear (09/16/2011 N UA Turbidity) 08:25:00) [facility] CenterMxreqtlSIQAAKTSMR2754-83-50 13:25:00 Test Item Value Reference Range Interpretation Comments UA Urobilinogen (test code *NA*(09/16/2011 0.1-1.0 = UA Urobilinogen) 08:25:00) [facility] CenterJoysiatTZFYVAYMCZ7131-50-24 13:25:00 Test Item Value Reference Range Interpretation Comments UA WBC (test code = no gt See_Comment N [Automa lorie message] The UA WBC) system which ge nerated this result transmit lorie reference range : <=5. The reference range was not used to interpr et this result as asher l/abnormal. [facility] CenterWopwbswLELBPMNPZT8711-25-89 13:25:00 Test Item Value Reference Range Interpretation Comments UA RBC (test code = 1 See_Comment N [Automa lorie message] The UA RBC) system which ge nerated this result transmit lorie reference range : <=2. The reference range was not used to interpr et this result as asher l/abnormal. [facility] CenterQmvqddlKTLPDKRWBP0298-63-96 13:25:00 Test Item Value Reference Range Interpretation Comments UA Mucus (test code = Few /LPF UA Mucus) *NA*(09/16/2011 08:25:00) [facility] CenterSesakyjPLGVWBGPNW7837-01-81 13:25:00 Test Item Value Reference Range Interpretation Comments UA Ketones (test code Negative mg/dL = UA Ketones) *NA*(09/16/2011 08:25:00) [facility] CenterLthqspwXQCVHPPBFK6748-64-78 13:25:00 Test Item Value Reference Range Interpretation Comments UA Bili (test code = Negative *NA*(09/16/2011 UA Bili) 08:25:00) [facility] CenterUwnatptZULXFYGSLC1574-45-77 13:25:00 Test Item Value Reference Range Interpretation Comments UA Blood (test code = Negative (09/16/2011 N UA Blood) 08:25:00) [facility] CenterWtpflqfCSPQCFPYZN0224-42-24 13:25:00 Test Item Value Reference Range Interpretation Comments UA Nitrite (test code Negative (09/16/2011 N = UA Nitrite) 08:25:00) [facility] CenterAjqbuwnXMMYQJFUUB5329-72-96 13:25:00 Test Item Value Reference Range Interpretation Comments UA Leuk Est (test Negative (09/16/2011 N code = UA Leuk Est) 08:25:00) [facility] CenterPhfjwpoXJXZBQGCDG2203-33-69 13:25:00 Test Item Value Reference Range Interpretation Comments UA Sq Epi (test code Occasional /LPF = UA Sq Epi) *NA*(09/16/2011 08:25:00) [facility] CenterHvyvoubJUBVOUZBJN1312-02-47 13:25:00 Test Item Value Reference Range Interpretation Comments UA Glucose (test code Negative mg/dL = UA Glucose) *NA*(09/16/2011 08:25:00) [facility] CenterYggghwdIIIIEBBGMT7169-52-82 13:25:00 Test Item Value Reference Range Interpretation Comments UA Protein (test code Negative mg/dL N = UA Protein) (09/16/2011 08:25:00) [facility] CenterKehggzlSCBRRQXHSS5970-58-68 13:25:00 Test Item Value Reference Range Interpretation Comments UA Color (test code = Yellow *NA*(09/16/2011 UA Color) 08:25:00) [facility] CenterCktvdjsKFKXSTYZSZ8956-08-72 13:25:00 Test Item Value Reference Range Interpretation Comments UA pH (test code = UA pH) 5.5 5.0-8.0 N [facility] CenterIgapdajJWPQPSIPHD2478-41-90 13:25:00 Test Item Value Reference Range Interpretation Comments UA Spec Grav (test code = UA Spec Grav) 1.017 N [facility] CenterKppjqmmGECGXRPYGL1724-86-28 13:25:00 Test Item Value Reference Range Interpretation Comments UA Turbidity (test code = Clear (09/16/2011 N UA Turbidity) 08:25:00) [facility] CenterFckrjjvULDAKIXRSG3607-33-57 13:25:00 Test Item Value Reference Range Interpretation Comments UA Urobilinogen (test code *NA*(09/16/2011 0.1-1.0 = UA Urobilinogen) 08:25:00) [facility] CenterMbaykihTQDOFCSCGS8133-01-27 13:25:00 Test Item Value Reference Range Interpretation Comments UA WBC (test code = no gt See_Comment N [Automa lorie message] The UA WBC) system which ge nerated this result transmit lorie reference range : <=5. The reference range was not used to interpr et this result as asher l/abnormal. [facility] CenterNuxqvtsGDFSHNPYYW6105-65-65 13:25:00 Test Item Value Reference Range Interpretation Comments UA RBC (test code = 1 See_Comment N [Automa lorie message] The UA RBC) system which ge nerated this result transmit lorie reference range : <=2. The reference range was not used to interpr et this result as asher l/abnormal. [facility] CenterKusqozbLEFLOXMFVK5016-02-65 13:25:00 Test Item Value Reference Range Interpretation Comments UA Mucus (test code = Few /LPF UA Mucus) *NA*(09/16/2011 08:25:00) [facility] CenterEgeflkcTJYPSPJBCI5367-09-78 13:25:00 Test Item Value Reference Range Interpretation Comments UA Ketones (test code Negative mg/dL = UA Ketones) *NA*(09/16/2011 08:25:00) [facility] CenterGhdfwdtANZGAMWYWX1995-41-97 13:25:00 Test Item Value Reference Range Interpretation Comments UA Bili (test code = Negative *NA*(09/16/2011 UA Bili) 08:25:00) [facility] HospitalKtyxkraHGRFLAUOGE7377-28-24 13:25:00 Test Item Value Reference Range Interpretation Comments UA Blood (test code = Negative (09/16/2011 N UA Blood) 08:25:00) [facility] CenterRimnyuxLPEVWFXFRJ5191-82-81 13:25:00 Test Item Value Reference Range Interpretation Comments UA Nitrite (test code Negative (09/16/2011 N = UA Nitrite) 08:25:00) [facility] HospitalUnckepzAITNAVPNGZ0603-94-20 13:25:00 Test Item Value Reference Range Interpretation Comments UA Leuk Est (test Negative (09/16/2011 N code = UA Leuk Est) 08:25:00) [facility] HospitalLgjqnsqAZMYXVJQTJ2922-33-07 13:25:00 Test Item Value Reference Range Interpretation Comments UA Sq Epi (test code Occasional /LPF = UA Sq Epi) *NA*(09/16/2011 08:25:00) [facility] HospitalKonfhytTPSOLGGBAH4101-26-53 13:25:00 Test Item Value Reference Range Interpretation Comments UA Glucose (test code Negative mg/dL = UA Glucose) *NA*(09/16/2011 08:25:00) [facility] HospitalHkmldwaETTKTJVBSU9762-25-75 13:25:00 Test Item Value Reference Range Interpretation Comments UA Protein (test code Negative mg/dL N = UA Protein) (09/16/2011 08:25:00) [facility] CenterYbjidagOVUZTDIUNI7157-13-22 13:25:00 Test Item Value Reference Range Interpretation Comments UA Color (test code = Yellow *NA*(09/16/2011 UA Color) 08:25:00) [facility] CenterHyjridkTQGJCSMJBR6870-53-81 13:25:00 Test Item Value Reference Range Interpretation Comments UA pH (test code = UA pH) 5.5 5.0-8.0 N [facility] CenterVsgwdnzXKMWGXPSAF6553-55-60 13:25:00 Test Item Value Reference Range Interpretation Comments UA Spec Grav (test code = UA Spec Grav) 1.017 N [facility] CenterMgykiruHYSWIOPYXT2427-60-08 13:25:00 Test Item Value Reference Range Interpretation Comments UA Turbidity (test code = Clear (09/16/2011 N UA Turbidity) 08:25:00) [facility] CenterTsiptadJSTCFFKZXO6757-63-78 13:25:00 Test Item Value Reference Range Interpretation Comments UA Urobilinogen (test code *NA*(09/16/2011 0.1-1.0 = UA Urobilinogen) 08:25:00) [facility] CenterRlrcjzaEUGABIXMOZ0227-79-90 13:25:00 Test Item Value Reference Range Interpretation Comments UA WBC (test code = no gt See_Comment N [Automa lorie message] The UA WBC) system which ge nerated this result transmit lorie reference range : <=5. The reference range was not used to interpr et this result as asher l/abnormal. [facility] CenterImqsrqfBNDACFVKAV7789-96-10 13:25:00 Test Item Value Reference Range Interpretation Comments UA RBC (test code = 1 See_Comment N [Automa lorie message] The UA RBC) system which ge nerated this result transmit lorie reference range : <=2. The reference range was not used to interpr et this result as asher l/abnormal. [facility] HospitalKjbjhluOLRERVXNCB9237-87-83 13:25:00 Test Item Value Reference Range Interpretation Comments UA Mucus (test code = Few /LPF UA Mucus) *NA*(09/16/2011 08:25:00) [facility] CenterOouyvwrSSVLHZXZWX6600-68-06 13:25:00 Test Item Value Reference Range Interpretation Comments UA Ketones (test code Negative mg/dL = UA Ketones) *NA*(09/16/2011 08:25:00) [facility] CenterJsxcdvrOHVNGQLGGR3492-84-66 13:25:00 Test Item Value Reference Range Interpretation Comments UA Bili (test code = Negative *NA*(09/16/2011 UA Bili) 08:25:00) [facility] CenterFvknagwDDSFYBDBDM0863-10-12 13:25:00 Test Item Value Reference Range Interpretation Comments UA Blood (test code = Negative (09/16/2011 N UA Blood) 08:25:00) [facility] CenterMbvqbckRMFOJEWRWV5580-99-24 13:25:00 Test Item Value Reference Range Interpretation Comments UA Nitrite (test code Negative (09/16/2011 N = UA Nitrite) 08:25:00) [facility] CenterJkglvujGYOABCEZWD4019-46-33 13:25:00 Test Item Value Reference Range Interpretation Comments UA Leuk Est (test Negative (09/16/2011 N code = UA Leuk Est) 08:25:00) [facility] CenterIiiapkqMPTHZOWUFU8391-51-01 13:25:00 Test Item Value Reference Range Interpretation Comments UA Sq Epi (test code Occasional /LPF = UA Sq Epi) *NA*(09/16/2011 08:25:00) [facility] CenterUcutfkrRKYVJCJZXM0991-41-38 13:25:00 Test Item Value Reference Range Interpretation Comments UA Glucose (test code Negative mg/dL = UA Glucose) *NA*(09/16/2011 08:25:00) [facility] CenterYmihzspSFCTFYYVVX7142-49-95 13:25:00 Test Item Value Reference Range Interpretation Comments UA Protein (test code Negative mg/dL N = UA Protein) (09/16/2011 08:25:00) [facility] CenterIssgcczMTKAWAQEWS7790-63-63 13:25:00 Test Item Value Reference Range Interpretation Comments UA Color (test code = Yellow *NA*(09/16/2011 UA Color) 08:25:00) [facility] CenterRvvrvsbPFQLVUGNYK3561-93-93 13:25:00 Test Item Value Reference Range Interpretation Comments UA pH (test code = UA pH) 5.5 5.0-8.0 N [facility] HospitalAttbntqHYVXTXMQXQ4030-36-22 13:25:00 Test Item Value Reference Range Interpretation Comments UA Spec Grav (test code = UA Spec Grav) 1.017 N [facility] HospitalJsouzuaJRLIBCDFZD4216-53-36 13:25:00 Test Item Value Reference Range Interpretation Comments UA Turbidity (test code = Clear (09/16/2011 N UA Turbidity) 08:25:00) [facility] CenterDqcowliHPSTVQUPEV6183-92-27 13:25:00 Test Item Value Reference Range Interpretation Comments UA Urobilinogen (test code *NA*(09/16/2011 0.1-1.0 = UA Urobilinogen) 08:25:00) [facility] CenterMwdkpdqDEETDZFGAU3041-19-74 13:25:00 Test Item Value Reference Range Interpretation Comments UA WBC (test code = no gt See_Comment N [Automa lorie message] The UA WBC) system which ge nerated this result transmit lorie reference range : <=5. The reference range was not used to interpr et this result as asher l/abnormal. [facility] CenterQcxjfrpJBAOGFZGRS7164-48-26 13:25:00 Test Item Value Reference Range Interpretation Comments UA RBC (test code = 1 See_Comment N [Automa lorie message] The UA RBC) system which ge nerated this result transmit lorie reference range : <=2. The reference range was not used to interpr et this result as asher l/abnormal. [facility] CenterAqvgkszCENGQDVTEC1698-82-37 13:25:00 Test Item Value Reference Range Interpretation Comments UA Mucus (test code = Few /LPF UA Mucus) *NA*(09/16/2011 08:25:00) [facility] CenterRmtmgaqGKLZYQVLBD0036-47-86 13:25:00 Test Item Value Reference Range Interpretation Comments UA Ketones (test code Negative mg/dL = UA Ketones) *NA*(09/16/2011 08:25:00) [facility] CenterRkvmasmMIAZFFUWUC9397-46-89 13:25:00 Test Item Value Reference Range Interpretation Comments UA Bili (test code = Negative *NA*(09/16/2011 UA Bili) 08:25:00) [facility] HospitalVwjhojqWRJQYRCMYL6293-35-12 13:25:00 Test Item Value Reference Range Interpretation Comments UA Blood (test code = Negative (09/16/2011 N UA Blood) 08:25:00) [facility] CenterUmzagxcIGRZZAXNFA2607-47-61 13:25:00 Test Item Value Reference Range Interpretation Comments UA Nitrite (test code Negative (09/16/2011 N = UA Nitrite) 08:25:00) [facility] CenterQsdxqgiLVJUCWYVFU1836-99-07 13:25:00 Test Item Value Reference Range Interpretation Comments UA Leuk Est (test Negative (09/16/2011 N code = UA Leuk Est) 08:25:00) [facility] CenterLggfunyVWRDLBLVUQ5441-76-57 13:25:00 Test Item Value Reference Range Interpretation Comments UA Sq Epi (test code Occasional /LPF = UA Sq Epi) *NA*(09/16/2011 08:25:00) [facility] CenterJvnzavwZXFFXYUCSL8308-64-73 13:25:00 Test Item Value Reference Range Interpretation Comments UA Glucose (test code Negative mg/dL = UA Glucose) *NA*(09/16/2011 08:25:00) [facility] CenterHguehqlHGOPKCLNVL2870-66-72 13:25:00 Test Item Value Reference Range Interpretation Comments UA Protein (test code Negative mg/dL N = UA Protein) (09/16/2011 08:25:00) [facility] CenterEkpslwxEFMOZMSOCZ8568-49-56 13:25:00 Test Item Value Reference Range Interpretation Comments UA Color (test code = Yellow *NA*(09/16/2011 UA Color) 08:25:00) [facility] CenterBskjcyfNVUDSPBQKI3140-82-14 13:25:00 Test Item Value Reference Range Interpretation Comments UA pH (test code = UA pH) 5.5 5.0-8.0 N [facility] CenterFrmvpibDILEEDLKXC2331-14-34 13:25:00 Test Item Value Reference Range Interpretation Comments UA Spec Grav (test code = UA Spec Grav) 1.017 N [facility] CenterCfabxnmHTFSBMSEMN8131-11-15 13:25:00 Test Item Value Reference Range Interpretation Comments UA Turbidity (test code = Clear (09/16/2011 N UA Turbidity) 08:25:00) [facility] CenterQtttuhbYJSWDGBSSD7795-27-58 13:25:00 Test Item Value Reference Range Interpretation Comments UA Urobilinogen (test code *NA*(09/16/2011 0.1-1.0 = UA Urobilinogen) 08:25:00) [facility] HospitalXlrrffeLKCLUZBOLN6629-56-50 13:25:00 Test Item Value Reference Range Interpretation Comments UA WBC (test code = no gt See_Comment N [Automa lorie message] The UA WBC) system which ge nerated this result transmit lorie reference range : <=5. The reference range was not used to interpr et this result as asher l/abnormal. [facility] HospitalGpryzjnGHGNFIWQAT4943-60-03 13:25:00 Test Item Value Reference Range Interpretation Comments UA RBC (test code = 1 See_Comment N [Automa lorie message] The UA RBC) system which ge nerated this result transmit lorie reference range : <=2. The reference range was not used to interpr et this result as asher l/abnormal. [facility] CenterEvirrocQZYCIRGJCH7336-09-51 13:25:00 Test Item Value Reference Range Interpretation Comments UA Mucus (test code = Few /LPF UA Mucus) *NA*(09/16/2011 08:25:00) [facility] CenterLotdvkpAMLZSZTMPG2407-77-76 13:25:00 Test Item Value Reference Range Interpretation Comments UA Ketones (test code Negative mg/dL = UA Ketones) *NA*(09/16/2011 08:25:00) [facility] CenterCvanxhcMQVUZZUJZG6081-86-32 13:25:00 Test Item Value Reference Range Interpretation Comments UA Bili (test code = Negative *NA*(09/16/2011 UA Bili) 08:25:00) [facility] CenterVnofpngAHLVNTNYSS9268-56-25 13:25:00 Test Item Value Reference Range Interpretation Comments UA Blood (test code = Negative (09/16/2011 N UA Blood) 08:25:00) [facility] HospitalDgkzhogVNOZSIXRSP9640-90-34 13:25:00 Test Item Value Reference Range Interpretation Comments UA Nitrite (test code Negative (09/16/2011 N = UA Nitrite) 08:25:00) [facility] CenterBroamfoKHSEZTEJIP1205-82-18 13:25:00 Test Item Value Reference Range Interpretation Comments UA Leuk Est (test Negative (09/16/2011 N code = UA Leuk Est) 08:25:00) [facility] HospitalIqozhudLAEUPXDYCU3072-13-63 13:25:00 Test Item Value Reference Range Interpretation Comments UA Sq Epi (test code Occasional /LPF = UA Sq Epi) *NA*(09/16/2011 08:25:00) [facility] CenterYvmgfnzLGPNRLEPIH8186-33-41 13:25:00 Test Item Value Reference Range Interpretation Comments UA Glucose (test code Negative mg/dL = UA Glucose) *NA*(09/16/2011 08:25:00) [facility] CenterAwwpkmbLOQQTNXAPS6606-28-17 13:25:00 Test Item Value Reference Range Interpretation Comments UA Protein (test code Negative mg/dL N = UA Protein) (09/16/2011 08:25:00) [facility] CenterEqzmeciOSSFEASCKM7657-34-54 13:25:00 Test Item Value Reference Range Interpretation Comments UA Color (test code = Yellow *NA*(09/16/2011 UA Color) 08:25:00) [facility] CenterLnirwbzNJSFXWHKVA1068-54-41 13:25:00 Test Item Value Reference Range Interpretation Comments UA pH (test code = UA pH) 5.5 5.0-8.0 N [facility] CenterWvvgxabNRUVVIRUAS6655-88-78 13:25:00 Test Item Value Reference Range Interpretation Comments UA Spec Grav (test code = UA Spec Grav) 1.017 N [facility] CenterZzlbgmcFSHPTSABEN1884-85-62 13:25:00 Test Item Value Reference Range Interpretation Comments UA Turbidity (test code = Clear (09/16/2011 N UA Turbidity) 08:25:00) [facility] CenterUppcrclTPBMZFAFKG3612-81-77 08:42:00 Test Item Value Reference Range Interpretation Comments UA Mucus (test code = Few /LPF UA Mucus) *NA*(09/15/2011 03:42:00) [facility] CenterFbjoxnhPJQZJNJXSV6723-22-15 08:42:00 Test Item Value Reference Range Interpretation Comments UA RBC (test code = 1 See_Comment N [Automa lorie message] The UA RBC) system which ge nerated this result transmit lorie reference range : <=2. The reference range was not used to interpr et this result as asher l/abnormal. [facility] CenterKyqmtviNCWABHRGZX8194-85-35 08:42:00 Test Item Value Reference Range Interpretation Comments UA Blood (test code = Negative (09/15/2011 N UA Blood) 03:42:00) [facility] CenterWkaqupxWTCMEVSKZX1561-09-84 08:42:00 Test Item Value Reference Range Interpretation Comments UA Nitrite (test code Negative (09/15/2011 N = UA Nitrite) 03:42:00) [facility] CenterWwzeobwHHJKXYELKH4835-19-82 08:42:00 Test Item Value Reference Range Interpretation Comments UA Leuk Est (test Negative (09/15/2011 N code = UA Leuk Est) 03:42:00) [facility] CenterTjeiffuPCSPGZHENI3545-31-03 08:42:00 Test Item Value Reference Range Interpretation Comments UA pH (test code = UA pH) 5.5 5.0-8.0 N [facility] CenterPjgiwfbHZLBRNLCWX7478-00-34 08:42:00 Test Item Value Reference Range Interpretation Comments UA Protein (test code Negative mg/dL N = UA Protein) (09/15/2011 03:42:00) [facility] CenterJxxfrckUGOSMOFOLG2798-28-34 08:42:00 Test Item Value Reference Range Interpretation Comments UA Glucose (test code Negative mg/dL = UA Glucose) *NA*(09/15/2011 03:42:00) [facility] CenterNtxulfqXGNLOQQAOB5903-38-62 08:42:00 Test Item Value Reference Range Interpretation Comments UA Ketones (test code Negative mg/dL = UA Ketones) *NA*(09/15/2011 03:42:00) [facility] CenterFwnjsooVIVKUTMVJM5499-22-03 08:42:00 Test Item Value Reference Range Interpretation Comments UA Bili (test code = Negative *NA*(09/15/2011 UA Bili) 03:42:00) [facility] CenterWsckchpYXVGLZVYFR5840-45-57 08:42:00 Test Item Value Reference Range Interpretation Comments UA Color (test code = Yellow *NA*(09/15/2011 UA Color) 03:42:00) [facility] CenterGbyojdnTRJJQYCXSQ3766-57-34 08:42:00 Test Item Value Reference Range Interpretation Comments UA Turbidity (test code Slight A = UA Turbidity) *ABN*(09/15/2011 03:42:00) [facility] CenterIvwcbxsXGXCAECTJK2226-77-59 08:42:00 Test Item Value Reference Range Interpretation Comments UA Spec Grav (test code = UA Spec Grav) 1.012 N [facility] CenterEyqkunkKHSQSXEWMZ0679-30-91 08:42:00 Test Item Value Reference Range Interpretation Comments UA Sq Epi (test code = UA Sq Epi) None [facility]KixxkpyWJSRSLKSUX3437-61-06 08:42:00 Test Item Value Reference Range Interpretation Comments UA Urobilinogen (test code *NA*(09/15/2011 0.1-1.0 = UA Urobilinogen) 03:42:00) [facility] HospitalZhdzxqgUbmvfkfyinum2803-28-83 08:42:00 Test Item Value Reference Range Interpretation Comments Culture: Urine (test code = Culture: Urine) [facility] HospitalCjddfxrTZAZMJKJWU1924-67-43 08:42:00 Test Item Value Reference Range Interpretation Comments UA Mucus (test code = Few /LPF UA Mucus) *NA*(09/15/2011 03:42:00) [facility] HospitalHiblztpXPISWRSFAG8610-43-34 08:42:00 Test Item Value Reference Range Interpretation Comments UA RBC (test code = 1 See_Comment N [Automa lorie message] The UA RBC) system which ge nerated this result transmit lorie reference range : <=2. The reference range was not used to interpr et this result as asher l/abnormal. [facility] HospitalKoybnjgETSWLPMQEA7034-87-33 08:42:00 Test Item Value Reference Range Interpretation Comments UA Blood (test code = Negative (09/15/2011 N UA Blood) 03:42:00) [facility] HospitalUkpmedwCUNLGXZWEY5859-93-41 08:42:00 Test Item Value Reference Range Interpretation Comments UA Nitrite (test code Negative (09/15/2011 N = UA Nitrite) 03:42:00) [facility] HospitalPpzmmkbFJFKTVFVPU6871-09-77 08:42:00 Test Item Value Reference Range Interpretation Comments UA Leuk Est (test Negative (09/15/2011 N code = UA Leuk Est) 03:42:00) [facility] HospitalZcgjcrrIREBRTSIYA7152-66-05 08:42:00 Test Item Value Reference Range Interpretation Comments UA pH (test code = UA pH) 5.5 5.0-8.0 N [facility] HospitalWypibzjWPXLHKWZYU5871-51-52 08:42:00 Test Item Value Reference Range Interpretation Comments UA Protein (test code Negative mg/dL N = UA Protein) (09/15/2011 03:42:00) [facility] HospitalMsaxiuaFOHMVKJWFQ7276-47-59 08:42:00 Test Item Value Reference Range Interpretation Comments UA Glucose (test code Negative mg/dL = UA Glucose) *NA*(09/15/2011 03:42:00) [facility] HospitalNflfhbbBDESSUVYHE5552-29-69 08:42:00 Test Item Value Reference Range Interpretation Comments UA Ketones (test code Negative mg/dL = UA Ketones) *NA*(09/15/2011 03:42:00) [facility] HospitalLgnhcccQDEKABCEFM4533-73-74 08:42:00 Test Item Value Reference Range Interpretation Comments UA Bili (test code = Negative *NA*(09/15/2011 UA Bili) 03:42:00) [facility] HospitalNdjquxxJMFRIKJVDI4500-95-54 08:42:00 Test Item Value Reference Range Interpretation Comments UA Color (test code = Yellow *NA*(09/15/2011 UA Color) 03:42:00) [facility] CenterAqqrngfMUWVYFNPFF8485-03-30 08:42:00 Test Item Value Reference Range Interpretation Comments UA Turbidity (test code Slight A = UA Turbidity) *ABN*(09/15/2011 03:42:00) [facility] HospitalZverrdcUMYKICBJSY5013-53-54 08:42:00 Test Item Value Reference Range Interpretation Comments UA Spec Grav (test code = UA Spec Grav) 1.012 N [facility] HospitalOpzedgpEIVSFXZAYL9761-10-34 08:42:00 Test Item Value Reference Range Interpretation Comments UA Sq Epi (test code = UA Sq Epi) None [facility]en [facility] CenterLienvoxOWJKWMRREY3357-97-41 08:42:00 Test Item Value Reference Range Interpretation Comments UA Urobilinogen (test code *NA*(09/15/2011 0.1-1.0 = UA Urobilinogen) 03:42:00) [facility] HospitalCxdplnxNwgqwucxuhjb0784-94-66 08:42:00 Test Item Value Reference Range Interpretation Comments Culture: Urine (test code = Culture: Urine) [facility] HospitalDpnxobrBGSVJVCVEE7284-51-55 08:42:00 Test Item Value Reference Range Interpretation Comments UA Mucus (test code = Few /LPF UA Mucus) *NA*(09/15/2011 03:42:00) [facility] HospitalMdqyfujAABIAQTSLI8179-05-49 08:42:00 Test Item Value Reference Range Interpretation Comments UA RBC (test code = 1 See_Comment N [Automa lorie message] The UA RBC) system which ge nerated this result transmit lorie reference range : <=2. The reference range was not used to interpr et this result as asher l/abnormal. [facility] CenterBewnbcpQHXZOPWJTJ4027-69-62 08:42:00 Test Item Value Reference Range Interpretation Comments UA Blood (test code = Negative (09/15/2011 N UA Blood) 03:42:00) [facility] CenterBfbrkdjFMSPRWHNFH8053-23-31 08:42:00 Test Item Value Reference Range Interpretation Comments UA Nitrite (test code Negative (09/15/2011 N = UA Nitrite) 03:42:00) [facility] CenterIuprvlnROLMOWGFTI0680-00-50 08:42:00 Test Item Value Reference Range Interpretation Comments UA Leuk Est (test Negative (09/15/2011 N code = UA Leuk Est) 03:42:00) [facility] CenterKkcyqxyLJDASNWHUZ9811-75-45 08:42:00 Test Item Value Reference Range Interpretation Comments UA pH (test code = UA pH) 5.5 5.0-8.0 N [facility] CenterGpzqpgeNURJJAMBDY8351-55-84 08:42:00 Test Item Value Reference Range Interpretation Comments UA Protein (test code Negative mg/dL N = UA Protein) (09/15/2011 03:42:00) [facility] CenterNulcdsaIBJNHXYBXL6911-63-25 08:42:00 Test Item Value Reference Range Interpretation Comments UA Glucose (test code Negative mg/dL = UA Glucose) *NA*(09/15/2011 03:42:00) [facility] CenterPebwviwZAXELUJDFL9282-97-91 08:42:00 Test Item Value Reference Range Interpretation Comments UA Ketones (test code Negative mg/dL = UA Ketones) *NA*(09/15/2011 03:42:00) [facility] CenterMqmxqslBERDIIAFFH7302-25-18 08:42:00 Test Item Value Reference Range Interpretation Comments UA Bili (test code = Negative *NA*(09/15/2011 UA Bili) 03:42:00) [facility] CenterDdliovwQAPWPFGTDM9868-85-75 08:42:00 Test Item Value Reference Range Interpretation Comments UA Color (test code = Yellow *NA*(09/15/2011 UA Color) 03:42:00) [facility] CenterPuewmzzZXTMHSPTWG5055-80-20 08:42:00 Test Item Value Reference Range Interpretation Comments UA Turbidity (test code Slight A = UA Turbidity) *ABN*(09/15/2011 03:42:00) [facility] HospitalGbsuaztNBFGUSTYEN8957-16-90 08:42:00 Test Item Value Reference Range Interpretation Comments UA Spec Grav (test code = UA Spec Grav) 1.012 N [facility] HospitalDscwhwdWRRKKGRAJF4772-02-62 08:42:00 Test Item Value Reference Range Interpretation Comments UA Sq Epi (test code = UA Sq Epi) None Seen [facility] HospitalEliwlfhMCQNCSHVKD3644-37-79 08:42:00 Test Item Value Reference Range Interpretation Comments UA Urobilinogen (test code *NA*(09/15/2011 0.1-1.0 = UA Urobilinogen) 03:42:00) [facility]FlczfbzZglndezomdov1832-59-98 08:42:00 Test Item Value Reference Range Interpretation Comments Culture: Urine (test code = Culture: Urine) [facility] HospitalKpmrbxiJDJITJYEMZ8190-85-64 08:42:00 Test Item Value Reference Range Interpretation Comments UA Mucus (test code = Few /LPF UA Mucus) *NA*(09/15/2011 03:42:00) [facility] HospitalPjfimfrJHXZMDDXZH1372-58-63 08:42:00 Test Item Value Reference Range Interpretation Comments UA RBC (test code = 1 See_Comment N [Automa lorie message] The UA RBC) system which ge nerated this result transmit lorie reference range : <=2. The reference range was not used to interpr et this result as asher l/abnormal. [facility] HospitalXittlhkCOCKOOVEEH2142-05-62 08:42:00 Test Item Value Reference Range Interpretation Comments UA Blood (test code = Negative (09/15/2011 N UA Blood) 03:42:00) [facility] HospitalSvugvgdSMCMLMQWSL5156-77-32 08:42:00 Test Item Value Reference Range Interpretation Comments UA Nitrite (test code Negative (09/15/2011 N = UA Nitrite) 03:42:00) [facility] HospitalMvnszhbSQROTQQJXK7823-17-76 08:42:00 Test Item Value Reference Range Interpretation Comments UA Leuk Est (test Negative (09/15/2011 N code = UA Leuk Est) 03:42:00) [facility] HospitalYmhjjbgTFVUNURNCW1093-02-86 08:42:00 Test Item Value Reference Range Interpretation Comments UA pH (test code = UA pH) 5.5 5.0-8.0 N [facility] CenterLwqfkmjQCWODVWWNZ0856-18-97 08:42:00 Test Item Value Reference Range Interpretation Comments UA Protein (test code Negative mg/dL N = UA Protein) (09/15/2011 03:42:00) [facility] CenterInpoewhWMPEFBKWRG4200-61-71 08:42:00 Test Item Value Reference Range Interpretation Comments UA Glucose (test code Negative mg/dL = UA Glucose) *NA*(09/15/2011 03:42:00) [facility] CenterVevtkwpTLOWNSIRSB7867-93-76 08:42:00 Test Item Value Reference Range Interpretation Comments UA Ketones (test code Negative mg/dL = UA Ketones) *NA*(09/15/2011 03:42:00) [facility]QahsgfqPBIWIIHJBN6584-25-56 08:42:00 Test Item Value Reference Range Interpretation Comments UA Bili (test code = Negative *NA*(09/15/2011 UA Bili) 03:42:00) [facility] CenterNddkyxyPGHQNNOWRW6422-85-35 08:42:00 Test Item Value Reference Range Interpretation Comments UA Color (test code = Yellow *NA*(09/15/2011 UA Color) 03:42:00) [facility] CenterHujbnouZTRVUAQMLB5986-49-48 08:42:00 Test Item Value Reference Range Interpretation Comments UA Turbidity (test code Slight A = UA Turbidity) *ABN*(09/15/2011 03:42:00) [facility] CenterXjtclbhKUVDUVXSWX1799-15-98 08:42:00 Test Item Value Reference Range Interpretation Comments UA Spec Grav (test code = UA Spec Grav) 1.012 N [facility] CenterYblkvizUUUXDWVNZE8919-61-39 08:42:00 Test Item Value Reference Range Interpretation Comments UA Sq Epi (test code = UA Sq Epi) None Seen [facility] CenterPymjgrcFJUEIFEUTL0854-91-03 08:42:00 Test Item Value Reference Range Interpretation Comments UA Urobilinogen (test code *NA*(09/15/2011 0.1-1.0 = UA Urobilinogen) 03:42:00) [facility]AekfcquQrzcpmovukqg5349-95-95 08:42:00 Test Item Value Reference Range Interpretation Comments Culture: Urine (test code = Culture: Urine) [facility] CenterXbthsygXVJHAXHOWX1850-61-63 08:42:00 Test Item Value Reference Range Interpretation Comments UA Mucus (test code = Few /LPF UA Mucus) *NA*(09/15/2011 03:42:00) [facility] CenterZbymojwSCKCQKNEJW6055-91-99 08:42:00 Test Item Value Reference Range Interpretation Comments UA RBC (test code = 1 See_Comment N [Automa lorie message] The UA RBC) system which ge nerated this result transmit lorie reference range : <=2. The reference range was not used to interpr et this result as asher l/abnormal. [facility] CenterBtdmoglFKUCNCGJNU2409-96-89 08:42:00 Test Item Value Reference Range Interpretation Comments UA Blood (test code = Negative (09/15/2011 N UA Blood) 03:42:00) [facility] CenterHpmcaazYSJOSXPLCU7879-98-82 08:42:00 Test Item Value Reference Range Interpretation Comments UA Nitrite (test code Negative (09/15/2011 N = UA Nitrite) 03:42:00) [facility] CenterOxobkowBQOHYYAEQP3497-19-39 08:42:00 Test Item Value Reference Range Interpretation Comments UA Leuk Est (test Negative (09/15/2011 N code = UA Leuk Est) 03:42:00) [facility] CenterSbddkiwMFHURVDJTE3756-81-13 08:42:00 Test Item Value Reference Range Interpretation Comments UA pH (test code = UA pH) 5.5 5.0-8.0 N [facility] CenterPubigtsHOQERSLTZA5472-64-73 08:42:00 Test Item Value Reference Range Interpretation Comments UA Protein (test code Negative mg/dL N = UA Protein) (09/15/2011 03:42:00) [facility] CenterVzizcebUYXNZYSVWA3889-36-51 08:42:00 Test Item Value Reference Range Interpretation Comments UA Glucose (test code Negative mg/dL = UA Glucose) *NA*(09/15/2011 03:42:00) [facility] CenterFwofmyiVKYWNURADQ6216-74-55 08:42:00 Test Item Value Reference Range Interpretation Comments UA Ketones (test code Negative mg/dL = UA Ketones) *NA*(09/15/2011 03:42:00) [facility] CenterUixpavfQWEDRXSQYH9880-57-00 08:42:00 Test Item Value Reference Range Interpretation Comments UA Bili (test code = Negative *NA*(09/15/2011 UA Bili) 03:42:00) [facility]HvsbqgbQKHUAYCATO2098-08-99 08:42:00 Test Item Value Reference Range Interpretation Comments UA Color (test code = Yellow *NA*(09/15/2011 UA Color) 03:42:00) [facility] HospitalXimoxvkZNHONEFXMT3219-27-53 08:42:00 Test Item Value Reference Range Interpretation Comments UA Turbidity (test code Slight A = UA Turbidity) *ABN*(09/15/2011 03:42:00) [facility] HospitalOyeugotVZLWRTPYBD9320-60-55 08:42:00 Test Item Value Reference Range Interpretation Comments UA Spec Grav (test code = UA Spec Grav) 1.012 N [facility] HospitalIddphqoCZCDNYGNXL5879-19-02 08:42:00 Test Item Value Reference Range Interpretation Comments UA Sq Epi (test code = UA Sq Epi) None Seen [facility] HospitalMwptpkpGVIGTTYDJI9941-91-92 08:42:00 Test Item Value Reference Range Interpretation Comments UA Urobilinogen (test code *NA*(09/15/2011 0.1-1.0 = UA Urobilinogen) 03:42:00) [facility] HospitalUgxjnkxAzelxdppuzsa1469-58-06 08:42:00 Test Item Value Reference Range Interpretation Comments Culture: Urine (test code = Culture: Urine) [facility] HospitalVmzqvbkTSNEJBDMPY6948-68-02 08:42:00 Test Item Value Reference Range Interpretation Comments UA Mucus (test code = Few /LPF UA Mucus) *NA*(09/15/2011 03:42:00) [facility] HospitalTyyfrfdQVZTVYJKLI0750-91-81 08:42:00 Test Item Value Reference Range Interpretation Comments UA RBC (test code = 1 See_Comment N [Automa lorie message] The UA RBC) system which ge nerated this result transmit lorie reference range : <=2. The reference range was not used to interpr et this result as asher l/abnormal. [facility] HospitalUfngdjyFCZLKXNBEV1639-17-32 08:42:00 Test Item Value Reference Range Interpretation Comments UA Blood (test code = Negative (09/15/2011 N UA Blood) 03:42:00) [facility] CenterJfacvfcZUGGYBGXMA2095-45-01 08:42:00 Test Item Value Reference Range Interpretation Comments UA Nitrite (test code Negative (09/15/2011 N = UA Nitrite) 03:42:00) [facility] CenterHurwtjzMGXTEXFBJP7139-13-39 08:42:00 Test Item Value Reference Range Interpretation Comments UA Leuk Est (test Negative (09/15/2011 N code = UA Leuk Est) 03:42:00) [facility] CenterAexcdzxCCZCAMNKTR0917-45-50 08:42:00 Test Item Value Reference Range Interpretation Comments UA pH (test code = UA pH) 5.5 5.0-8.0 N [facility] CenterTkalmxrXDAIRGEJVN1876-36-47 08:42:00 Test Item Value Reference Range Interpretation Comments UA Protein (test code Negative mg/dL N = UA Protein) (09/15/2011 03:42:00) [facility] CenterShndtikQRXEYSDPIK4944-13-68 08:42:00 Test Item Value Reference Range Interpretation Comments UA Glucose (test code Negative mg/dL = UA Glucose) *NA*(09/15/2011 03:42:00) [facility] CenterEculjifKCLYFKBMEB5614-71-93 08:42:00 Test Item Value Reference Range Interpretation Comments UA Ketones (test code Negative mg/dL = UA Ketones) *NA*(09/15/2011 03:42:00) [facility] CenterZswushcOBHVEBPXMZ4678-94-82 08:42:00 Test Item Value Reference Range Interpretation Comments UA Bili (test code = Negative *NA*(09/15/2011 UA Bili) 03:42:00) [facility] CenterDcxzvphSEDDROCCCD0342-49-77 08:42:00 Test Item Value Reference Range Interpretation Comments UA Color (test code = Yellow *NA*(09/15/2011 UA Color) 03:42:00) [facility] CenterDejqlobRLJZCPTSBR4480-92-66 08:42:00 Test Item Value Reference Range Interpretation Comments UA Turbidity (test code Slight A = UA Turbidity) *ABN*(09/15/2011 03:42:00) [facility] CenterKckmyfgSHDCGMVQJE8460-32-96 08:42:00 Test Item Value Reference Range Interpretation Comments UA Spec Grav (test code = UA Spec Grav) 1.012 N [facility] CenterSgtcwvwBPYFRZLWSZ6312-46-09 08:42:00 Test Item Value Reference Range Interpretation Comments UA Sq Epi (test code = UA Sq Epi) None [facility]en [facility] HospitalQpvyvhjFEQHSWROEA5613-12-13 08:42:00 Test Item Value Reference Range Interpretation Comments UA Urobilinogen (test code *NA*(09/15/2011 0.1-1.0 = UA Urobilinogen) 03:42:00) [facility] HospitalAvymedjXgthfskhzhyc9924-67-01 08:42:00 Test Item Value Reference Range Interpretation Comments Culture: Urine (test code = Culture: Urine) [facility]EmzusspTGXJTXICZ3753-94-29 08:40:00 Test Item Value Reference Range Interpretation Comments TSH (test code = TSH) 3.390 0.360-3.740 N [facility] CenterNqdaafwBTKHBSSYE0546-16-02 08:40:00 Test Item Value Reference Range Interpretation Comments T4 (test code = T4) 8.5 4.7-13.3 N [facility] CenterRrshmxzBSNIRQHWQ2428-71-15 08:40:00 Test Item Value Reference Range Interpretation Comments T3 Uptake (test code = T3 Uptake) 33 31-39 N [facility] CenterOggnsttTCPFDAWUH2988-61-16 08:40:00 Test Item Value Reference Range Interpretation Comments TSH (test code = TSH) 3.390 0.360-3.740 N [facility] CenterYxcszivOKUSJMEXC1117-49-74 08:40:00 Test Item Value Reference Range Interpretation Comments Total Protein (test code = Total 6.4 6.4-8.4 N Protein) [facility] CenterUnaxdcmPNNZEHOLN6709-89-70 08:40:00 Test Item Value Reference Range Interpretation Comments AST (test code = AST) 14 See_Comment N [Auto mated message] The system which ge nerated this result transmit lorie reference range : <=37. The reference range was not used to interpr et this result as asher l/abnormal. [facility] CenterMdsudftIZXMAPWQC3504-63-76 08:40:00 Test Item Value Reference Range Interpretation Comments Bili Total (test code = Bili Total) 0.4 0.2-1.3 N [facility] CenterIagmtufUCHZAQQGN5674-24-93 08:40:00 Test Item Value Reference Range Interpretation Comments ALT (test code = ALT) 24 See_Comment N [Auto mated message] The system which ge nerated this result transmit lorie reference range : <=65. The reference range was not used to interpr et this result as asher l/abnormal. [facility] CenterAmtzbdvNCJDBNFOL4848-84-93 08:40:00 Test Item Value Reference Range Interpretation Comments Alk Phos (test code = Alk Phos) 81 39-136 N [facility] CenterJlpbfaeRPIUQRWPA7791-52-82 08:40:00 Test Item Value Reference Range Interpretation Comments Albumin Lvl (test code = Albumin Lvl) 3.3 3.5-5.0 L [facility] CenterBxgjtnpRVQQGMBRL9709-36-72 08:40:00 Test Item Value Reference Range Interpretation Comments A/G Ratio (test code = A/G Ratio) 1.1 0.7-1.6 N [facility] CenterXwvhqaqRXLROITXF7084-19-32 08:40:00 Test Item Value Reference Range Interpretation Comments B/C Ratio (test code = B/C Ratio) 14 6-25 N [facility] CenterLdndjafUUNLJARLA7365-24-07 08:40:00 Test Item Value Reference Range Interpretation Comments Globulin (test code = Globulin) 3.1 2.0-4.0 N [facility] CenterGriunftWXPZORQCC4763-96-95 08:40:00 Test Item Value Reference Range Interpretation Comments FTI (test code = FTI) 2.8 [facility]GgblwbyVWMPBAVMUX8642-08-28 08:40:00 Test Item Value Reference Range Interpretation Comments PTT (test code = PTT) 32.4 s 22.9-35.8 N [facility]anoJpipeqzSPBGZRBDFW6678-74-34 08:40:00 Test Item Value Reference Range Interpretation Comments PT (test code = PT) 13.0 s 12.0-14.7 N [facility]anoMzdarqxTNFYZDRMEM0671-45-16 08:40:00 Test Item Value Reference Range Interpretation Comments INR (test code = INR) 0.98 0.85-1.17 N [facility] CenterQfdladrUWFTDLWWU8692-39-92 08:40:00 Test Item Value Reference Range Interpretation Comments TSH (test code = TSH) 3.390 0.360-3.740 N [facility] CenterNznhgtxVWGOXLOET3787-89-71 08:40:00 Test Item Value Reference Range Interpretation Comments T4 (test code = T4) 8.5 4.7-13.3 N [facility] CenterTjcqlncFXTGKEJSL3041-99-29 08:40:00 Test Item Value Reference Range Interpretation Comments T3 Uptake (test code = T3 Uptake) 33 31-39 N [facility] CenterWzlfukzYSKSSMFUC9581-14-21 08:40:00 Test Item Value Reference Range Interpretation Comments TSH (test code = TSH) 3.390 0.360-3.740 N [facility] CenterOldbmnqEJMGHWPGR4251-43-72 08:40:00 Test Item Value Reference Range Interpretation Comments Total Protein (test code = Total 6.4 6.4-8.4 N Protein) [facility] CenterAjxpdhcBVMQULVBR1737-45-30 08:40:00 Test Item Value Reference Range Interpretation Comments AST (test code = AST) 14 See_Comment N [Auto mated message] The system which ge nerated this result transmit lorie reference range : <=37. The reference range was not used to interpr et this result as asher l/abnormal. [facility] CenterNgwiksoJRUPOGQLJ2535-37-88 08:40:00 Test Item Value Reference Range Interpretation Comments Bili Total (test code = Bili Total) 0.4 0.2-1.3 N [facility] CenterMmixadpONAQTNAIK9506-51-47 08:40:00 Test Item Value Reference Range Interpretation Comments ALT (test code = ALT) 24 See_Comment N [Auto mated message] The system which ge nerated this result transmit lorie reference range : <=65. The reference range was not used to interpr et this result as asher l/abnormal. [facility]XlylnbkAXBWAOWHQ3709-07-66 08:40:00 Test Item Value Reference Range Interpretation Comments Alk Phos (test code = Alk Phos) 81 39-136 N [facility] CenterEdjzfbtKUJUXFPPF7287-72-40 08:40:00 Test Item Value Reference Range Interpretation Comments Albumin Lvl (test code = Albumin Lvl) 3.3 3.5-5.0 L [facility] CenterYjhfvzeZEQGISPBO6857-07-34 08:40:00 Test Item Value Reference Range Interpretation Comments A/G Ratio (test code = A/G Ratio) 1.1 0.7-1.6 N [facility] CenterUkurjzoYTZUBHTKY4301-56-45 08:40:00 Test Item Value Reference Range Interpretation Comments B/C Ratio (test code = B/C Ratio) 14 6-25 N [facility] CenterGvjuudpDUTNHJSIX5862-37-74 08:40:00 Test Item Value Reference Range Interpretation Comments Globulin (test code = Globulin) 3.1 2.0-4.0 N [facility] CenterPbjrjtjNUPQZUXLO0761-34-67 08:40:00 Test Item Value Reference Range Interpretation Comments FTI (test code = FTI) 2.8 [facility]anoUslxpxhEBORXMDATX4303-70-84 08:40:00 Test Item Value Reference Range Interpretation Comments PTT (test code = PTT) 32.4 s 22.9-35.8 N [facility]anoCuyxkrlCVWZLVZMVG2873-17-92 08:40:00 Test Item Value Reference Range Interpretation Comments PT (test code = PT) 13.0 s 12.0-14.7 N [facility]anoImbiecuWUOSZAVUKF8768-86-24 08:40:00 Test Item Value Reference Range Interpretation Comments INR (test code = INR) 0.98 0.85-1.17 N [place] [address]-06-02 08:40:00 Test Item Value Reference Range Interpretation Comments TSH (test code = TSH) 3.390 0.360-3.740 N [facility] CenterXpvzovsGMHHMBBRQ5391-58-87 08:40:00 Test Item Value Reference Range Interpretation Comments T4 (test code = T4) 8.5 4.7-13.3 N [facility] CenterLuygbumTHDPUJDCS2801-07-64 08:40:00 Test Item Value Reference Range Interpretation Comments T3 Uptake (test code = T3 Uptake) 33 31-39 N [facility] CenterRgmymwrXRCCVRYAI0251-99-00 08:40:00 Test Item Value Reference Range Interpretation Comments TSH (test code = TSH) 3.390 0.360-3.740 N [facility] CenterJtywhevNWPMPXSAA2971-99-67 08:40:00 Test Item Value Reference Range Interpretation Comments Total Protein (test code = Total 6.4 6.4-8.4 N Protein) [facility] CenterNreivmdVCAJIJQBJ1526-86-13 08:40:00 Test Item Value Reference Range Interpretation Comments AST (test code = AST) 14 See_Comment N [Auto mated message] The system which ge nerated this result transmit lorie reference range : <=37. The reference range was not used to interpr et this result as asher l/abnormal. [facility] CenterMchgfevCBVPEWQRH1828-24-81 08:40:00 Test Item Value Reference Range Interpretation Comments Bili Total (test code = Bili Total) 0.4 0.2-1.3 N [facility] CenterYyguoivUOSWVZLPM5002-12-67 08:40:00 Test Item Value Reference Range Interpretation Comments ALT (test code = ALT) 24 See_Comment N [Auto mated message] The system which ge nerated this result transmit lorie reference range : <=65. The reference range was not used to interpr et this result as asher l/abnormal. [facility] CenterNzigxxdIWMBMFONG4918-58-37 08:40:00 Test Item Value Reference Range Interpretation Comments Alk Phos (test code = Alk Phos) 81 39-136 N [facility] CenterMaossivOGGHIMRZC8694-66-89 08:40:00 Test Item Value Reference Range Interpretation Comments Albumin Lvl (test code = Albumin Lvl) 3.3 3.5-5.0 L [facility] CenterXwzirzoIJELKZSEW6977-72-54 08:40:00 Test Item Value Reference Range Interpretation Comments A/G Ratio (test code = A/G Ratio) 1.1 0.7-1.6 N [facility] CenterPzrlebsPALBQNUUE7239-91-31 08:40:00 Test Item Value Reference Range Interpretation Comments B/C Ratio (test code = B/C Ratio) 14 6-25 N [facility] CenterBlsgvknVATUWYXTV9631-36-56 08:40:00 Test Item Value Reference Range Interpretation Comments Globulin (test code = Globulin) 3.1 2.0-4.0 N [facility] CenterMbzkfjoDTKYFMJGK0099-10-35 08:40:00 Test Item Value Reference Range Interpretation Comments FTI (test code = FTI) 2.8 [facility]UwlsvxkYNFRQGYLZV0839-36-89 08:40:00 Test Item Value Reference Range Interpretation Comments PTT (test code = PTT) 32.4 s 22.9-35.8 N [facility]anoYrxmsrnIKNNFYLOMW8418-10-27 08:40:00 Test Item Value Reference Range Interpretation Comments PT (test code = PT) 13.0 s 12.0-14.7 N [facility]anoCtefkcbEZLVPPXGNL7875-27-50 08:40:00 Test Item Value Reference Range Interpretation Comments INR (test code = INR) 0.98 0.85-1.17 N [facility] CenterEqwwsncYOVCMUEJP2198-34-29 08:40:00 Test Item Value Reference Range Interpretation Comments TSH (test code = TSH) 3.390 0.360-3.740 N [facility] CenterIirjojxYWORROVJR2286-92-26 08:40:00 Test Item Value Reference Range Interpretation Comments T4 (test code = T4) 8.5 4.7-13.3 N [facility] CenterOjlcczwPDUBAXQXF7116-56-06 08:40:00 Test Item Value Reference Range Interpretation Comments T3 Uptake (test code = T3 Uptake) 33 31-39 N [facility] CenterFcjdshyUZCPWHTRG4287-83-25 08:40:00 Test Item Value Reference Range Interpretation Comments TSH (test code = TSH) 3.390 0.360-3.740 N [facility] CenterKafbzkrNAFZCZXLU7591-41-82 08:40:00 Test Item Value Reference Range Interpretation Comments Total Protein (test code = Total 6.4 6.4-8.4 N Protein) [facility] CenterZtaqtorCRDKEMFOT7703-61-22 08:40:00 Test Item Value Reference Range Interpretation Comments AST (test code = AST) 14 See_Comment N [Auto mated message] The system which ge nerated this result transmit lorie reference range : <=37. The reference range was not used to interpr et this result as asher l/abnormal. [facility] CenterJadwnibEIDXZNIDS9949-30-55 08:40:00 Test Item Value Reference Range Interpretation Comments Bili Total (test code = Bili Total) 0.4 0.2-1.3 N [facility] CenterLwhmttxTSVUPLZAU0538-49-53 08:40:00 Test Item Value Reference Range Interpretation Comments ALT (test code = ALT) 24 See_Comment N [Auto mated message] The system which ge nerated this result transmit lorie reference range : <=65. The reference range was not used to interpr et this result as asher l/abnormal. [facility] CenterCrfmcdxOGONCMDSJ7072-62-09 08:40:00 Test Item Value Reference Range Interpretation Comments Alk Phos (test code = Alk Phos) 81 39-136 N [facility] CenterFzgkempOEOSBBARN2118-36-18 08:40:00 Test Item Value Reference Range Interpretation Comments Albumin Lvl (test code = Albumin Lvl) 3.3 3.5-5.0 L [facility] CenterCnodntqVAFWBQYWC0810-57-77 08:40:00 Test Item Value Reference Range Interpretation Comments A/G Ratio (test code = A/G Ratio) 1.1 0.7-1.6 N [facility] CenterHzcoiwbTUOPUGMFT4593-60-97 08:40:00 Test Item Value Reference Range Interpretation Comments B/C Ratio (test code = B/C Ratio) 14 6-25 N [facility] CenterHqmqfnbNGLQMZKSG5446-47-62 08:40:00 Test Item Value Reference Range Interpretation Comments Globulin (test code = Globulin) 3.1 2.0-4.0 N [facility] CenterRdkozmbYNVZRSNNG3166-31-36 08:40:00 Test Item Value Reference Range Interpretation Comments FTI (test code = FTI) 2.8 [facility]anoGuezshsQWIZNARNVF6590-27-13 08:40:00 Test Item Value Reference Range Interpretation Comments PTT (test code = PTT) 32.4 s 22.9-35.8 N [facility]anoZacjkgaWQEAFOSXYY6511-77-42 08:40:00 Test Item Value Reference Range Interpretation Comments PT (test code = PT) 13.0 s 12.0-14.7 N [facility]anoUzctzgzHPFYTPCNUN7260-40-21 08:40:00 Test Item Value Reference Range Interpretation Comments INR (test code = INR) 0.98 0.85-1.17 N [facility] CenterMbhjtyuMQROTQOTH3815-00-31 08:40:00 Test Item Value Reference Range Interpretation Comments TSH (test code = TSH) 3.390 0.360-3.740 N [facility] CenterOneygtvWORBMYSHJ7206-53-93 08:40:00 Test Item Value Reference Range Interpretation Comments T4 (test code = T4) 8.5 4.7-13.3 N [facility] CenterVfvqcsdOWNTYNLCC3390-31-25 08:40:00 Test Item Value Reference Range Interpretation Comments T3 Uptake (test code = T3 Uptake) 33 31-39 N [facility] CenterDxcveeuFAUHPONYZ5097-59-22 08:40:00 Test Item Value Reference Range Interpretation Comments TSH (test code = TSH) 3.390 0.360-3.740 N [facility] CenterZdozehzPQPJLBWNL2201-61-34 08:40:00 Test Item Value Reference Range Interpretation Comments Total Protein (test code = Total 6.4 6.4-8.4 N Protein) [facility] CenterDagkrqqGIVLLHNHA6856-83-47 08:40:00 Test Item Value Reference Range Interpretation Comments AST (test code = AST) 14 See_Comment N [Auto mated message] The system which ge nerated this result transmit lorie reference range : <=37. The reference range was not used to interpr et this result as asher l/abnormal. [facility] CenterYqosqxpKRMCVOUAR7828-93-78 08:40:00 Test Item Value Reference Range Interpretation Comments Bili Total (test code = Bili Total) 0.4 0.2-1.3 N [facility] CenterSkfuivtPFYIYQIBU5339-44-10 08:40:00 Test Item Value Reference Range Interpretation Comments ALT (test code = ALT) 24 See_Comment N [Auto mated message] The system which ge nerated this result transmit lorie reference range : <=65. The reference range was not used to interpr et this result as asher l/abnormal. [facility] CenterFscairoOMSDDXLOF6556-09-40 08:40:00 Test Item Value Reference Range Interpretation Comments Alk Phos (test code = Alk Phos) 81 39-136 N [facility] CenterLjuldnqFOSLNKYOK2380-71-05 08:40:00 Test Item Value Reference Range Interpretation Comments Albumin Lvl (test code = Albumin Lvl) 3.3 3.5-5.0 L [facility] CenterDnrezopKANLMLLOL9312-19-72 08:40:00 Test Item Value Reference Range Interpretation Comments A/G Ratio (test code = A/G Ratio) 1.1 0.7-1.6 N [facility] CenterVqeaypeFYEQWWSXE9488-14-64 08:40:00 Test Item Value Reference Range Interpretation Comments B/C Ratio (test code = B/C Ratio) 14 6-25 N [facility] CenterZlvsodkGSFKFGRPD9703-58-60 08:40:00 Test Item Value Reference Range Interpretation Comments Globulin (test code = Globulin) 3.1 2.0-4.0 N [facility] CenterHzqejdqUUZFHCIXP1406-70-76 08:40:00 Test Item Value Reference Range Interpretation Comments FTI (test code = FTI) 2.8 [facility]anoOpnmnagCQAFNLFQSI0384-34-18 08:40:00 Test Item Value Reference Range Interpretation Comments PTT (test code = PTT) 32.4 s 22.9-35.8 N [facility]anoAndykwaDRSZUYDOJE6218-55-53 08:40:00 Test Item Value Reference Range Interpretation Comments PT (test code = PT) 13.0 s 12.0-14.7 N [facility]anoAycwtizOTUWEONHSF2357-16-07 08:40:00 Test Item Value Reference Range Interpretation Comments INR (test code = INR) 0.98 0.85-1.17 N [facility] CenterMacrrquZKBHLIGXG7270-01-54 08:40:00 Test Item Value Reference Range Interpretation Comments TSH (test code = TSH) 3.390 0.360-3.740 N [facility] CenterYdqlgttUOYXPGIKB6365-66-35 08:40:00 Test Item Value Reference Range Interpretation Comments T4 (test code = T4) 8.5 4.7-13.3 N [facility] CenterLdskcsfVFSQCPPMX8959-72-40 08:40:00 Test Item Value Reference Range Interpretation Comments T3 Uptake (test code = T3 Uptake) 33 31-39 N [facility] CenterFodonenPLNDBMJSD2091-22-26 08:40:00 Test Item Value Reference Range Interpretation Comments TSH (test code = TSH) 3.390 0.360-3.740 N [facility] CenterQxggzzxYYHVJJDYG7606-57-35 08:40:00 Test Item Value Reference Range Interpretation Comments Total Protein (test code = Total 6.4 6.4-8.4 N Protein) [facility] CenterCmdwphzVPDPVYBNK1509-51-12 08:40:00 Test Item Value Reference Range Interpretation Comments AST (test code = AST) 14 See_Comment N [Auto mated message] The system which ge nerated this result transmit lorie reference range : <=37. The reference range was not used to interpr et this result as asher l/abnormal. [facility] [id number] 08:40:00 Test Item Value Reference Range Interpretation Comments Bili Total (test code = Bili Total) 0.4 0.2-1.3 [id number] 08:40:00 Test Item Value Reference Range Interpretation Comments ALT (test code = ALT) 24 See_Comment N [Auto mated message] The system which ge nerated this result transmit lorie reference range : <=65. The reference range was not used to interpr et this result as asher l/abnormal. [facility] [id number] 08:40:00 Test Item Value Reference Range Interpretation Comments Alk Phos (test code = Alk Phos) 81 39-136 [facility] [id number] 08:40:00 Test Item Value Reference Range Interpretation Comments Albumin Lvl (test code = Albumin Lvl) 3.3 3.5-5.0 L [facility] CenterRbbgwtqDOKIKKEBJ4099-13-59 08:40:00 Test Item Value Reference Range Interpretation Comments A/G Ratio (test code = A/G Ratio) 1.1 0.7-1.6 N [facility] [id number] 08:40:00 Test Item Value Reference Range Interpretation Comments B/C Ratio (test code = B/C Ratio) 14 6-25 N [facility] [id number] 08:40:00 Test Item Value Reference Range Interpretation Comments Globulin (test code = Globulin) 3.1 2.0-4.0 N [facility] [id number] 08:40:00 Test Item Value Reference Range Interpretation Comments FTI (test code = FTI) 2.8 [id number] 08:40:00 Test Item Value Reference Range Interpretation Comments PTT (test code = PTT) 32.4 s 22.9-35.8 N [id number] 08:40:00 Test Item Value Reference Range Interpretation Comments PT (test code = PT) 13.0 s 12.0-14.7 N [id number] 08:40:00 Test Item Value Reference Range Interpretation Comments INR (test code = INR) 0.98 0.85-1.17 N [facility]
[2022-12-12] MEDS ORDERED: HYDROCODONE/APAP 5/325 MG TAB ONE (13:31)
--- NOTE | 2022-12-12 13:57 | RAD REPORT ---
EXAM DESCRIPTION: USExtremity Venous Uni Ltd12/12/2022 1:46 pm CLINICAL HISTORY: left leg pain COMPARISON: 2019 FINDINGS: Left common femoral, superficial femoral, greater saphenous, popliteal and posterior tibi al veins are compressible and demonstrate augmentation. Doppler demonstrates good flow. Grayscale, color and spectral analysis performed on all vessels IMPRESSION: No evidence of deep venous thrombosis involving the left lower extremity.
--- NOTE | 2022-12-12 14:00 | RAD REPORT ---
EXAM DESCRIPTION: US - Lower Extremity Artery Uni Ltd - 12/12/2022 1:47 pm CLINICAL HISTORY: Leg pain COMPARISON: August 2022 FINDINGS: The left common femoral, superficial femoral and popliteal arteries demonstrate biphasic waveforms The left posterior tibial and dorsalis pedis arteries demonstrate biphasic waveforms Calcifications are present throughout the arteries. There is mild to moderate narrowing proximal left superficial femoral artery. 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
--- NOTE | 2022-12-12 14:25 | EDPHYS ---
Physician Documentation [facility] Name: Bryan Graf Age: 72 yrs Sex: Male : 1950 Arrival Date: 12/12/2022 Time: 12:53 Bed 2 Private MD: ED Physician Deejay Mercado HPI: 12/12 14:25 This 72 yrs old Male presents to ER via EMS with complaints of Leg Pain. ms3 14:25 72-year-old male with past medical history of chronic pain, COPD, CVA, hypertension, ms3 migraines, pneumonia presents for left leg pain that has been ongoing for "a while.". Patient states for the last week his pain has been worse. Patient rates his current pain a 10/10 and describes the pain as throbbing. Patient denies alleviating or inciting factors. Historical: - Allergies: 12:58 Aspirin; nj1 12:58 PENICILLINS; nj1 - PMHx: 12:58 Chronic pain; COPD; CVA; Hypertension; Migraine; Pneumonia; Seizures; swelling and pain nj1 to L lower leg; - PSHx: 12:58 heart surgery; nj1 - Immunization history:: Client reports receiving the 2nd dose of the Covid vaccine. - Social history:: Smoking status: Patient reports the use of cigarette tobacco products, smokes one pack cigarettes per day. ROS: 14:25 Constitutional: Negative for fever, and chills. Neck: Negative for injury, pain, and ms3 swelling, Cardiovascular: Negative for chest pain, and palpitations. Respiratory: Negative for shortness of breath, cough, wheezing, and pleuritic chest pain, Abdomen/GI: Negative for abdominal pain, nausea, vomiting, diarrhea, and constipation. 14:25 MS/extremity: Positive for pain. 14:25 All other systems are negative. Exam: 14:25 Constitutional: This is a well developed, well nourished patient who is awake, alert, ms3 and in no acute distress. Head/Face: Normocephalic, atraumatic. Neck: Trachea midline, no cervical lymphadenopathy. Supple, full range of motion without nuchal rigidity, or vertebral point tenderness. No Meningismus. Chest/axilla: Normal chest wall appearance and motion. Nontender with no deformity. Cardiovascular: Regular rate and rhythm with a normal S1 and S2. No gallops, murmurs, or rubs. Normal PMI, no JVD. No pulse deficits. Respiratory: Lungs have equal breath sounds bilaterally, clear to auscultation and percussion. No rales, rhonchi or wheezes noted. No increased work of breathing, no retractions or nasal flaring. Abdomen/GI: Soft, non-tender, with normal bowel sounds. No distension or tympany. No guarding or rebound. No evidence of tenderness throughout. 14:25 Musculoskeletal/extremity: Extremities: Left foot with 2+ dorsalis pedis, sensation intact, warm to touch. Vital Signs: 12:55 BP 126 / 80; Pulse 75; Resp 18; Temp 98.3(O); Pulse Ox 99% on R/A; Weight 76.2 kg; nj1 Height 5 ft. 8 in. ; Pain 10/10; 14:00 BP 144 / 65; Pulse 70; Resp 17; Pulse Ox 97% ; nj1 15:00 BP 148 / 83; Pulse 65; Resp 18; Pulse Ox 98% ; Pain 10/10; nj1 12:55 Body Mass Index 25.54 (76.20 kg, 172.72 cm) nj1 12:55 Pain Scale: Adult nj1 15:00 Pain Scale: Adult nj1 MDM: 13:09 Patient medically screened. ms3 14:25 Differential diagnosis: DVT versus arterial occlusion versus chronic pain. Data ms3 reviewed: vital signs, nurses notes, radiologic studies, ultrasound, and as a result, I will discharge patient. I considered the following discharge prescriptions or medication management in the emergency department Medications were administered in the Emergency Department. See MAR. Historians other than the Patient: EMS: [facility]. Counseling: I had a detailed discussion with the patient and/or guardian regarding the historical points, exam findings, and any diagnostic results supporting the discharge/admit diagnosis, radiology results, the need for outpatient follow up, to return to the emergency department if symptoms worsen or persist or if there are any questions or concerns that arise at home. Special discussion: I discussed with the patient/guardian in detail that at this point there is no indication for admission to the hospital. It is understood, however, that if the symptoms persist or worsen the patient needs to return immediately for re-evaluation. ED course: Discussed venous and arterial ultrasounds with patient. Patient to follow-up with primary care and pain management in 2 to 3 days. Patient understands and agrees with plan. All questions were answered. Return precautions discussed include worsening symptoms, or any other concerns.. 12/12 13:11 Order name: Extremity Venous Uni Ltd US; Complete Time: 14:01 ms3 12/12 13:11 Order name: Lower Extremity Artery Uni Ltd US; Complete Time: 14:01 ms3 Administered Medications: 13:22 Drug: HYDROcodone-acetaminophen PO 5 mg-325 mg 1 tabs Route: PO; nj1 15:07 Follow up: Response: Pain is unchanged, physician notified nj1 Disposition Summary: 12/12/22 14:25 Discharge Ordered Location: Home ms3 Condition: Stable ms3 Diagnosis - Pain in left leg ms3 Followup: ms3 - With: Kemar Hairston MD - When: 2 - 3 days - Reason: Re-evaluation by your physician Followup: ms3 - With: Amari Solis MD - When: 2 - 3 days - Reason: Recheck today's complaints Forms: - Medication Reconciliation Form ms3 - Thank You Letter ms3 - Antibiotic Education ms3 - Prescription Opioid Use ms3 - Patient Portal Instructions ms3 - Leadership Thank You Letter ms3 Signatures: Dispatcher [employer] Cherelle Avilez, [employer]-Deejay Jean Baptiste DO DO ms3 Katherine Ojeda, RN RN nj1
--- NOTE | 2022-12-12 14:25 | ER ---
Nurse's Notes [facility] Name: Bryan Graf Age: 72 yrs Sex: Male : 1950 Arrival Date: 12/12/2022 Time: 12:53 Bed 2 Private MD: Diagnosis: Pain in left leg Presentation: 12/12 12:55 Chief complaint: Patient states: Left leg pain for 3-4 months, getting worse, denies nj1 known injury. EMS states: Left leg pain, from groin all the way down. Coronavirus screen: Vaccine status: Patient reports receiving the 2nd dose of the covid vaccine. Ebola Screen: Patient denies travel to an Ebola-affected area in the 21 days before illness onset. Initial Sepsis Screen: Does the patient meet any 2 criteria? No. Patient's initial sepsis screen is negative. Does the patient have a suspected source of infection? No. Patient's initial sepsis screen is negative. Risk Assessment: Do you want to hurt yourself or someone else? Patient reports no desire to harm self or others. Onset of symptoms was August 2022. 12:55 Method Of Arrival: EMS: [facility] nj1 12:55 Acuity: GELACIO 3 nj1 Historical: - Allergies: 12:58 Aspirin; nj1 12:58 PENICILLINS; nj1 - PMHx: 12:58 Chronic pain; COPD; CVA; Hypertension; Migraine; Pneumonia; Seizures; swelling and pain nj1 to L lower leg; - PSHx: 12:58 heart surgery; nj1 - Immunization history:: Client reports receiving the 2nd dose of the Covid vaccine. - Social history:: Smoking status: Patient reports the use of cigarette tobacco products, smokes one pack cigarettes per day. Screenin:59 [facility] ED Fall Risk Assessment (Adult) Score/Fall Risk Level 0 - 2 = Low Risk nj1 Oriented to surroundings, Maintained a safe environment, Hourly rounding (assess needs \T\ fall precautionary measures) done, Used ambulatory aids as needed (educated on \T\ assisted with). Abuse screen: Denies threats or abuse. Denies injuries from another. Nutritional screening: No deficits noted. Tuberculosis screening: No symptoms or risk factors identified. Assessment: 12:59 General: Appears in no apparent distress. uncomfortable, Behavior is calm, cooperative, nj1 appropriate for age. Pain: Complains of pain in left leg Pain currently is 10 out of 10 on a pain scale. Neuro: Level of Consciousness is awake, alert, obeys commands, Oriented to person, place, time, situation. Cardiovascular: Patient's skin is warm and dry. Respiratory: Airway is patent Respiratory effort is even, unlabored. Musculoskeletal: Reports pain in left leg. 15:00 Reassessment: Patient appears in no apparent distress at this time. Patient and/or nj1 family updated on plan of care and expected duration. Pain level reassessed. Patient is alert, oriented x 3, equal unlabored respirations, skin warm/dry/pink. Vital Signs: 12:55 BP 126 / 80; Pulse 75; Resp 18; Temp 98.3(O); Pulse Ox 99% on R/A; Weight 76.2 kg; nj1 Height 5 ft. 8 in. ; Pain 10/10; 14:00 BP 144 / 65; Pulse 70; Resp 17; Pulse Ox 97% ; nj1 15:00 BP 148 / 83; Pulse 65; Resp 18; Pulse Ox 98% ; Pain 10/10; nj1 12:55 Body Mass Index 25.54 (76.20 kg, 172.72 cm) nj1 12:55 Pain Scale: Adult nj1 15:00 Pain Scale: Adult mo1 ED Course: 12:54 Patient arrived in ED. nj1 12:55 Katherine Ojeda, RN is Primary Nurse. nj1 12:58 Triage completed. nj1 12:59 Arm band placed on. nj1 13:00 Deejay Mercado DO is Attending Physician. ms3 13:00 Patient has correct armband on for positive identification. Bed in low position. Call nj1 light in reach. Side rails up X 1. Provided Education on: call light, fall precautions. 13:49 Extremity Venous Uni Ltd US In Process Unspecified. EDMS 13:49 Lower Extremity Artery Uni Ltd US In Process Unspecified. EDMS 14:24 Kemar Hairston MD is Referral Physician. ms3 14:24 Amari Solis MD is Referral Physician. ms3 15:00 Notified ED physician of other request for pain medication. nj1 15:09 No provider procedures requiring assistance completed. Patient did not have IV access nj1 during this emergency room visit. Administered Medications: 13:22 Drug: HYDROcodone-acetaminophen PO 5 mg-325 mg 1 tabs Route: PO; nj1 15:07 Follow up: Response: Pain is unchanged, physician notified nj1 Medication: 15:09 VIS not applicable for this client. nj1 Outcome: 14:25 Discharge ordered by . ms3 15:09 Discharged to home via wheelchair. nj1 15:09 Condition: stable 15:09 Discharge instructions given to patient, Instructed on discharge instructions, follow up and referral plans. Demonstrated understanding of instructions, follow-up care. 15:12 Patient left the ED. nj1 Signatures: Dispatcher [employer] EDMS Deejay Mercado DO DO ms3 Katherine Ojeda RN RN nj1
[2022-12-12 15:19] VITALS: TEMP 98.3
[2022-12-12 15:21] VITALS: BP 148/83; O2SAT 98
== END 2022-12-12 15:12 | disposition home or self-care (01) ==
LOC: ER 12:53
DX: M79.605 Pain in left leg (principal); G89.29 Other chronic pain; I10 Essential (primary) hypertension; F17.210 Nicotine dependence, cigarettes, uncomplicated; Z88.0 Allergy status to penicillin; Z88.6 Allergy status to analgesic agent
CPT/HCPCS: 93926; 93971

== ENCOUNTER 2023-02-08 12:21 | Emergency (ER) | payer OTHER ==
--- OUTSIDE RECORDS SUMMARY | 2023-02-08 12:29 | XMS REPORT | Continuity of Care Document ---
:1950 Author Organization [facility] t Address [address] [place] [address] Care Team Providers Name Role Phone Uli [...] ([facility] n[facility] 8-25 [facility] obstructiv obstructiv [facility]: In dical e e 00 Center pulmonary pulmonary disease) disease) Altered Altered Disease Active [facility] mental mental [facility]25 [facility] status status 00:00: Medical 00 Center Ptosis, Ptosis, Disease Active [facility] left left [facility]-25 [facility] 00:[facility]: Medical 00 [place] S/P CABG x S/P CABG x Disease [...] embolism embolism 8-14 [facility] 00:[facility]: Medical 00 [place] Left-sided Left-sided Disease Active [facility] muscle muscle 6-26 [facility] weakness weakness 00:00: Medica l 00 Center Muscle Muscle Disease Active [facility] cramps cramps 6-26 [facility] 00:00: Medical [place] Tension Tension Disease Active [facility] type [...] Thao kes ation ation 00:00: Medical 00 [place] Cellulitis Cellulitis Disease Active [facility] of of 3-19 [facility]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 00:00: 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 space of 00 [place] mouth mouth Mandibular Mandibular Disease Active [facility] abscess abscess 3-18 [facility] 00:[facility] 00 Center CVA CVA Diagnosis Active 2011-09-21 Mem oria Active 09-12 14:49:00 l 09/13/2011 06:00: Richard n 00 Rehabilita tion Dysarthria Dysarthri Problem Active 2011-10-03 Memoria a Active 08:09:33 l Problem [place] 10/03/2011 [facility] Weakness Weakness Problem Active 2011-10-03 Memoria Active 08:09:33 l Problem [place] 10/03/2011 [facility] CVA CVA Diagnosis Active 2011-09-21 Mem [...] [facility] INE 00:00: Medical ONLY) 00 Center ASPIRIN Allergy Active Hives [facility] 3-16 [...] Center s aspirin aspirin Active Memoria l [place] codeine codeine Active Memoria l Miguel penicill penicill Active Memori a ins ins l [place] Family History Family Member Diagnosis Comments Start [...] non-user [facility] Center Cigarettes smoked 2016-11-26 2016-11-26 ELLEN Montoya current (pack per 00:00:00 00:00:00 Medical Center day) - Reported Sex Ass[birth year] At [birth year] ELLEN Salass 00:00:00 00:00:00 [facility] Center Smoking Status Start Date Stop Date Source Smokes tobacco daily 2016-11-26 00:00:00 [facility] Medications Ordered Filled Start Stop Current Ordering Indication Dosage Frequency Signature Comments Components Source Medication Medication Date Date Medication? Clinician (SIG) Name Name acetaminoph 2016-0 Yes 500mg Take 500 C [...] PO, Memoria 6-16 Substituti l 23:36: on [place] 37 Allowed, TAB OXYcodone 2011-0 Yes 1, [...] tab, PO, l tablet 19:27: Q12H, 60 [place] 52 tab, Substituti on Allowed, TAB famotidine 2011-0 Yes Meilani H 20 mg, 1 Memoria 20 mg oral 6-15 [place] tab, PO, l tablet 19:27: BID, 60 [place] 44 tab, Substituti on Allowed, TAB Colace 100 Yes Meilani H 100 mg, 1 Memoria mg oral 6-15 [place] cap, PO, l capsule 19:27: BID, 60 [place] 40 cap, Substituti on Allowed, CAP Plavix [...] 6-02 West tab, l 03:49: Route: PO, [place] 00 Drug form: TAB, Bedtime, PRN Insomnia, [...] 30 day, Stop date: 10/13/11 17:00:00 enoxaparin No Jeff 40 mg, 0.4 Memoria 09-13 Jef mL, Route: l 20:00: Efrain SUB-Q, [place] 00 Drug form: INJ, Q24H, Start date: [...] Systolic (mm Hg) 2011-10-01 10:34:00 Luan rial [place] Respitory Rate 2011-10-01 10:34:00 Memori al Miguel Heart Rate 2011-10-01 10:34:00 [facility] Temperature Oral (F) 2011-10-01 10:34:00 97.6 F [facility] [place] Diastolic (mm Hg) 2011-10-01 10:34:00 Mem orial [place] Diastolic (mm Hg) 2011-10-01 00:44:00 Mem orial Miguel Respitory Rate 2011-10-01 00:44:00 Memori al Miguel Heart Rate 2011-10-01 00:44:00 [facility] [place] Systolic (mm Hg) 2011-10-01 00:44:00 Luan rial [place] Temperature Oral (F) 2011-10-01 00:44:00 98.1 F [facility] [place] Systolic (mm Hg) 2011-09-30 21:00:00 Luan rial [place] Diastolic (mm Hg) 2011-09-30 21:00:00 Mem orial Miguel Heart Rate 2011-09-30 21:00:00 [facility] [place] Respitory Rate 2011-09-30 21:00:00 Memori al Miguel Temperature Oral (F) 2011-09-30 10:03:00 97.8 F [facility] [place] Height 2011-09-15 03:49:00 172.72 cm [facility] [place] Weight 2011-09-15 03:49:00 [facility] Procedures This patient has no known procedures. Encounters Start End Encounter Admission Attending Care Care Encounter Source Date/Time Date/Time Type Type Clinicians Facility Department ID 2011-09-14 [id number] 22:16:00 13:00:00 52 l Miguel Results Test Description Test Time Test Comments Results Result Comments Source B-TYPE NATRIURETIC FACTOR (BNP) 2016-12-21 05:56:00 Test Item Value Reference Range Interpretation Comme nts B-TYPE NATRIURETIC PEPTIDE (BEAKER) (test code = 700) 136 pg/mL 0-100 H COMPREHENSIVE METABOLIC [id number] 05:53:00 Test Item Value Reference Range Interpretation [...] 355) BLOOD UREA NITROGEN 9 mg/dL 7-21 ([facility]) (test code = 354) CREATININE ([facility]) 0.58 mg/dL 0.57-1.25 (test code = 358) GLUCOSE RANDOM 94 mg/dL 70-105 ([facility]) (test code = 652) CALCIUM ([facility]) 8.7 mg/dL 8.4-10.2 (test code = 697) AST (SGOT) ([facility]) 67 U/L 5-34 H (test code = 353) ALT (SGPT) ([facility]) 88 U/L 6-55 H (test code = 347) EGFR ([facility]) (test 139 ESTIMATE D GFR IS code = 1092) mL/min/1.73 sq NOT ACCURA TE m CREATININE CLEARANCE IN PREDICTING GLOMERULAR FILTRATION RATE . ESTIMATED GFR I S NOT APPLICABLE FOR DIALYSIS PATIEN TS. POCT-GLUCOSE [id number] 16:33:00 Test Item Value Reference Range Interpretation Comments POC-GLUCOSE METER 116 mg/dL 70-110 H TESTED AT [place] [address] ([facility]) (test code = [facility] 1538) [id number] POCT-GLUCOSE [id number] 11:08:00 Test Item Value Reference Range Interpretation Comments POC-GLUCOSE METER 133 mg/dL 70-110 H TESTED AT [place] [address] ([facility]) (test code = [facility] 1538) [address] POCT-GLUCOSE [id number] 06:11:00 Test Item Value Reference Range Interpretation Comments POC-GLUCOSE METER 105 mg/dL 70-110 TESTED AT [place] [address] ([facility]) (test code = [facility] 1538) [address] POCT-GLUCOSE [id number] 20:28:00 Test Item Value Reference Range Interpretation Comments POC-GLUCOSE METER 124 mg/dL 70-110 H TESTED AT [place] [address] ([facility]) (test code = [facility] 1538) [address] POCT-GLUCOSE [id number] 16:46:00 Test Item Value Reference Range Interpretation Comments POC-GLUCOSE METER 113 mg/dL 70-110 H TESTED AT [place] [address] ([facility]) (test code = [facility] 1538) [address] POCT-GLUCOSE [id number] 11:46:00 Test Item Value Reference Range Interpretation Comments POC-GLUCOSE METER 113 mg/dL 70-110 H TESTED AT [place] [address] ([facility]) (test code = TISHA Cazares [facility] 1538) [address] URINE [id number] 09:54:00 Test Item Value Reference Range Interpretation Comments CULTURE ([facility]) (test KLEBSIELLA A >100, 000 col/mL [...] S Sulfamethoxazole (test code = 47) POCT-GLUCOSE [id number] 06:46:00 Test Item Value Reference Range Interpretation Comments POC-GLUCOSE METER 111 mg/dL 70-110 H TESTED AT [place] [address] ([facility]) (test code = [employer] 1538) [address] POCT-GLUCOSE [id number] 20:48:00 Test Item Value Reference Range Interpretation Comments POC-GLUCOSE METER 128 mg/dL 70-110 H TESTED AT [place] [address] ([facility]) (test code = [facility]age [facility] 1538) [address]95 POCT-GLUCOSE [id number] 16:00:00 Test Item Value Reference Range Interpretation Comments POC-GLUCOSE METER 127 mg/dL 70-110 H TESTED AT [place] [address] ([facility]) (test code = [facility] 1538) [address]39 POCT-GLUCOSE [id number] 11:16:00 Test Item Value Reference Range Interpretation Comments POC-GLUCOSE METER 273 mg/dL 70-110 H TESTED AT [place] [address] ([facility]) (test code = [facility] 6998) [address] COMPREHENSIVE METABOLIC [id number] 06:44:00 Test Item Value Reference Range Interpretation [...] S NOT APPLICABLE FOR DIALYSIS PATIEN TS. [id number] 06:27:00 Test Item Value Reference Range Interpretation Comments PARTIAL THROMBOPLASTIN TIME 38.5 seconds 22.5-36.0 H (BEAKER) (test code = 760) PROTHROMBIN [id number] 06:26:00 Test Item Value Reference Range Interpretation [...] mechanical heart valves.CBC W/PLT COUNT & AUTO [id number] 06:25:00 Test Item Value Reference Range Interpretation [...] PERCENT (BEAKER) (test code = 2801) POCT-GLUCOSE [id number] 06:22:00 Test Item Value Reference Range Interpretation Comments POC-GLUCOSE METER 131 mg/dL 70-110 H TESTED AT [facility] 67[address] (BEAKER) (test code = [facility] [place] 1538) [address] URINALYSIS W/ [id number] 20:35:00 Test Item Value Reference Range Interpretation [...] SOURCE(BEAKER) (test code Urine, Clean Catch = 6247) POCT-GLUCOSE [id number] 20:21:00 Test Item Value Reference Range Interpretation Comments POC-GLUCOSE METER 132 mg/dL 70-110 H TESTED AT [facility] 6720 (BEAKER) (test code = [facility] [place] 1538) [address] POCT-GLUCOSE [id number] 16:17:00 Test Item Value Reference Range Interpretation Comments POC-GLUCOSE METER 101 mg/dL 70-110 TESTED AT [facility] 6720 (BEAKER) (test code = [facility] 1538) [address] POCT-GLUCOSE [id number] 13:35:00 Test Item Value Reference Range Interpretation Comments POC-GLUCOSE METER 143 mg/dL 70-110 H TESTED AT [facility] 6720 (BEAKER) (test code = [place] 1538) [address] BASIC METABOLIC [id number] 06:31:00 Test Item Value Reference Range Interpretation [...] APPLICABLE FOR DIALYSIS PATIEN TS. BASIC METABOLIC [id number] 05:41:00 Test Item Value Reference Range Interpretation [...] 0-0 (BEAKER) (test code = 413) VITAMIN [id number] 06:04:00 Test Item Value Reference Range Interpretation Comments VITAMIN B12 (BEAKER) (test code = 619 pg/mL 213-816 774) [id number] 06:04:00 Test Item Value Reference Range Interpretation Comments FERRITIN (BEAKER) (test code = 361) 335 ng/mL 5-275 H Effective 03/02/2014: Reference Range ChangeNew: Male 5-275 Previous: Male 22- 322 Female 5-275 Female 10-291FOLATE, [id number] 06:04:00 Test Item Value Reference Range Interpretation Comments FOLATE (BEAKER) (test code = 362) 4.9 ng/mL >=7.0 L Effective 03/02/2014: Folate Reference Range ChangeNew: >=7.0 Previous: >=5.4BASIC METABOLIC [id number] 05:47:00 Test Item Value Reference Range Interpretation [...] (BEAKER) (test code = 413) BASIC METABOLIC [id number] 05:53:00 Test Item Value Reference Range Interpretation [...] WBC 0-0 (BEAKER) (test code = 413) [id number] 22:53:00 Test Item Value Reference Range Interpretation Comments ACTIVATED CLOTTING TIME 153 sec TEST ED AT [place] [address] ([facility]) (test code = [facility] 441) [address] [id number] 22:35:00 Test Item Value Reference Range Interpretation Comments ACTIVATED CLOTTING TIME 202 sec TEST ED AT [place] [address] ([facility]) (test code = [place] 441) [address] [id number] 22:04:00 Test Item Value Reference Range Interpretation [...] (BEAKER) (test code = 413) BASIC METABOLIC [id number] 08:43:00 Test Item Value Reference Range Interpretation [...] (BEAKER) (test code = 413) BASIC METABOLIC [id number] 06:44:00 Test Item Value Reference Range Interpretation [...] PATIEN TS. CBC W/PLT COUNT & AUTO [id number] 21:33:00 Test Item Value Reference Range Interpretation [...] 0-1 PERCENT (BEAKER) (test code = 2801) [id number] 07:21:00 Test Item Value Reference Range Interpretation Comments PHOSPHORUS (BEAKER) (test code = 3.6 mg/dL 2.3-4.7 604) [id number] 07:21:00 Test Item Value Reference Range Interpretation Comments MAGNESIUM (BEAKER) (test code = 1.9 mg/dL 1.6-2.6 627) COMPREHENSIVE METABOLIC [id number] 07:21:00 Test Item Value Reference Range Interpretation [...] code = 413) PHENYTOIN LEVEL, TOTAL AND [id number] 01:14:00 Test Item Value Reference Range Interpretation Comments PHENYTOIN (DILANTIN) (BEAKER) 22.9 ug/mL 10.0-20.0 H (test code = 605) PHENYTOIN FREE (BEAKER) (test 3.51 mcg/ml 1.00-2.00 H code = 847) VALPROIC ACID LEVEL, [id number] 20:49:00 Test Item Value Reference Range Interpretation Comments VALPROIC ACID TOTAL (BEAKER) (test 33 ug/mL 50-100 L code = 924) Therapeutic range for some clinical conditions may be >100 ug/mLPOCT-GLUCOSE [id number] 17:10:00 Test Item Value Reference Range Interpretation Comments POC-GLUCOSE METER 108 mg/dL 70-110 TESTED AT [facility] 6720 (BEAKER) (test code = [place] [place] 1538) [address] PHENYTOIN LEVEL, [id number] 12:29:00 Test Item Value Reference Range Interpretation Comments PHENYTOIN (DILANTIN) (BEAKER) 16.3 ug/mL 10.0-20.0 (test code = 605) CREATINE KINASE (CK), TOTAL AND [id number] 12:26:00 Test Item Value Reference Range Interpretation Comments CREATINE KINASE TOTAL (BEAKER) 47 U/L 29-200 (test code = 380) CREATINE KINASE-MB (BEAKER) (test 1.1 ng/mL 0.0-6.6 code = 750) CREATINE KINASE-MB INDEX (BEAKER) 2.3 % (test code = 395) Effective 03/02/2014: CK-MB Reference Range ChangeNew: 0.0-6.6 Previous: 0.0-4.9CK-MB Reference Range:<6.7 Normal6.7-10.0 Borderline>10.0 Abnormal TROPONIN [id number] 12:26:00 Test Item Value Reference Range Interpretation [...] failure, acidosis, acute neurological disease, and persistent tachyarrhythmia.[id number] 12:17:00 Test Item Value Reference Range Interpretation Comments MAGNESIUM (BEAKER) (test code = 2.0 mg/dL 1.6-2.6 627) COMPREHENSIVE METABOLIC [id number] 12:17:00 Test Item Value Reference Range Interpretation [...] PATIEN TS. CBC W/PLT COUNT & AUTO [id number] 11:55:00 Test Item Value Reference Range Interpretation [...] PERCENT (BEAKER) (test code = 2801) URINE [id number] 11:55:00 Test Item Value Reference Range Interpretation Comments CULTURE (BEAKER) (test code = 1095) No growth BLOOD GAS, [id number] 10:28:00 Test Item Value Reference Range Interpretation [...] (test code = 1819) 32.0 % POCT-GLUCOSE [id number] 09:53:00 Test Item Value Reference Range Interpretation Comments POC-GLUCOSE METER 184 mg/dL 70-110 H TESTED AT [facility] 6720 ([facility]) (test code = [facility] 1538) [address] TROPONIN [id number] 22:44:00 Test Item Value Reference Range Interpretation Comments TROPONIN I ([facility]) (test code = 0.14 ng/mL 0.00-0.03 [...] acidosis, acute neurological disease, and persistent tachyarrhythmia.TROPONIN [id number] 15:17:00 Test Item Value Reference Range Interpretation Comments TROPONIN I ([facility]) (test code = 0.14 ng/mL 0.00-0.03 [...] Range Interpretation Comments WHITE BLOOD CELL COUNT ([facility]) 7.7 K/ L 3.5-10.5 (test code = 775) RED BLOOD CELL COUNT ([facility]) 2.98 M/ L 4.63-6.08 L (test code = 761) HEMOGLOBIN ([facility]) (test code = 9.3 GM/DL 13.7-17.5 L [...] MORPHOLOGY (BEAKER) (test code = Normal 762) [id number] 07:06:00 Test Item Value Reference Range Interpretation Comments PHOSPHORUS (BEAKER) (test code = 2.5 mg/dL 2.3-4.7 604) [id number] 07:06:00 Test Item Value Reference Range Interpretation Comments MAGNESIUM (BEAKER) (test code = 2.0 mg/dL 1.6-2.6 627) COMPREHENSIVE METABOLIC [id number] 07:06:00 Test Item Value Reference Range Interpretation [...] NOT APPLICABLE FOR DIALYSIS PATIEN TS. PROTHROMBIN [id number] 06:40:00 Test Item Value Reference Range Interpretation Comments PROTIME (BEAKER) (test code = 12.5 seconds 11.7-14.7 759) INR (BEAKER) (test code = 370) 1.0 <=5.9 RECOMMENDED COUMADIN/WARFARIN INR THERAPY RANGESSTANDARD DOSE: 2.0 - 3.0 Includes: PROPHYLAXIS for venous thrombosis, systemic embolization; TREATMENT for venous thrombosis and/or pulmonary embolus.HIGH RISK: Target INR is 2.5-3.5 for patients with mechanical heart valves.URINALYSIS W/ [id number] 06:18:00 Test Item Value Reference Range Interpretation [...] 516) SOURCE(BEAKER) (test code = Urine, Voided 7442) COMPREHENSIVE METABOLIC [id number] 05:47:00 Test Item Value Reference Range Interpretation [...] (BEAKER) (test code = 413) COMPREHENSIVE METABOLIC [id number] 10:08:00 Test Item Value Reference Range Interpretation [...] 0-0 (BEAKER) (test code = 413) POCT-GLUCOSE [id number] 12:08:00 Test Item Value Reference Range Interpretation Comments POC-GLUCOSE METER 111 mg/dL 70-110 H TESTED AT [place] [address] ([facility]) (test code = T[place] 1538) [address] POCT-GLUCOSE [id number] 08:40:00 Test Item Value Reference Range Interpretation Comments POC-GLUCOSE METER 184 mg/dL 70-110 H TESTED AT [place] [address] (BEAKER) (test code = T[place] 1538) [address] [id number] 05:57:00 Test Item Value Reference Range Interpretation Comments MAGNESIUM (BEAKER) (test code = 2.1 mg/dL 1.6-2.6 627) BASIC METABOLIC [id number] 05:57:00 Test Item Value Reference Range Interpretation [...] 0-0 (BEAKER) (test code = 413) POCT-GLUCOSE [id number] 21:18:00 Test Item Value Reference Range Interpretation Comments POC-GLUCOSE METER 118 mg/dL 70-110 H TESTED AT [facility] 67 ([facility]) (test code = TISHA Cazares [facility] 1538) [address] POCT-GLUCOSE [id number] 17:33:00 Test Item Value Reference Range Interpretation Comments POC-GLUCOSE METER 102 mg/dL 70-110 TESTED AT [place] [address] ([facility]) (test code = TISHA Cazares [facility] 1538) [address] POCT-GLUCOSE [id number] 12:06:00 Test Item Value Reference Range Interpretation Comments POC-GLUCOSE METER 188 mg/dL 70-110 H TESTED AT [place] [address] ([facility]) (test code = TISHA Cazares [facility] 1538) [address] POCT-GLUCOSE [id number] 08:31:00 Test Item Value Reference Range Interpretation Comments POC-GLUCOSE METER 109 mg/dL 70-110 TESTED AT [place] [address] ([facility]) (test code = TISHA Cazares [facility] 1538) [address] [id number] 06:07:00 Test Item Value Reference Range Interpretation Comments MAGNESIUM (BEAKER) (test code = 2.0 mg/dL 1.6-2.6 627) BASIC METABOLIC [id number] 06:07:00 Test Item Value Reference Range Interpretation [...] S NOT APPLICABLE FOR DIALYSIS PATIEN TS. [id number] 05:40:00 Test Item Value Reference Range Interpretation [...] 0-0 (BEAKER) (test code = 413) POCT-GLUCOSE [id number] 21:01:00 Test Item Value Reference Range Interpretation Comments POC-GLUCOSE METER 118 mg/dL 70-110 H TESTED AT [facility] 6720 (BEAKER) (test code = TISHA Cazares [place] 1538) [address] POCT-GLUCOSE [id number] 18:51:00 Test Item Value Reference Range Interpretation Comments POC-GLUCOSE METER 117 mg/dL 70-110 H TESTED AT [facility] 6720 (BEAKER) (test code = TISHA Cazares [place] 1538) [address] POCT-GLUCOSE [id number] 14:02:00 Test Item Value Reference Range Interpretation Comments POC-GLUCOSE METER 129 mg/dL 70-110 H TESTED AT [facility] 6720 (BEAKER) (test code = TISHA Cazares [place] 1538) [address] [id number] 04:19:00 Test Item Value Reference Range Interpretation Comments MAGNESIUM (BEAKER) (test code = 1.8 mg/dL 1.6-2.6 627) BASIC METABOLIC [id number] 04:19:00 Test Item Value Reference Range Interpretation [...] S NOT APPLICABLE FOR DIALYSIS PATIEN TS. [id number] 04:13:00 Test Item Value Reference Range Interpretation [...] heart valves.Prior to initiating heparinPrior to initiating [id number] 04:13:00 Test Item Value Reference Range Interpretation Comments PARTIAL THROMBOPLASTIN TIME 42.4 seconds 22.5-36.0 H (BEAKER) (test code = 760) LACTIC ACID, ARTERIAL, WHOLE [id number] 04:09:00 Test Item Value Reference Range Interpretation [...] 0-0 (BEAKER) (test code = 413) CALCIUM, [id number] 03:54:00 Test Item Value Reference Range Interpretation Comments CALCIUM IONIZED (BEAKER) (test 1.14 mmol/L 1.12-1.27 code = 698) PH, BLOOD (BEAKER) (test code = 7.49 1810) BLOOD GAS, [id number] 03:54:00 Test Item Value Reference Range Interpretation [...] (test code = 1819) 36.0 % POCT-GLUCOSE [id number] 17:32:00 Test Item Value Reference Range Interpretation Comments POC-GLUCOSE METER 121 mg/dL 70-110 H TESTED AT [facility] 6720 ([facility]) (test code = TISHA Cazares [facility] 1538) [address] PLATELET AGGREGATION: FUNCTION [id number] 14:46:00 Test Item Value Reference Range Interpretation Comments WEAK ADP 82 % 60-91 RESULT(AKER) (test code = 2135) PLATELET FUNCTION 60-100% indicates SCREEN INTERP (AKER) normal platelet (test code = 2173) function [id number] Mari Phelan MD ([facility]) (test code = (electronic signature) 0508) PLATELET COUNT AGG 221 K/CU MM 150-450 (BEAKER) (test code = 2656) POCT-GLUCOSE [id number] 12:58:00 Test Item Value Reference Range Interpretation Comments POC-GLUCOSE METER 129 mg/dL 70-110 H TESTED AT [facility] 6720 (BEAKER) (test code = [facility] 1538) [address] HEMOGLOBIN [id number] 09:09:00 Test Item Value Reference Range Interpretation Comments HEMOGLOBIN A1C (BEAKER) (test code = 5.1 % 4.3-6.1 368) BLOOD GAS, [id number] 06:57:00 Test Item Value Reference Range Interpretation [...] (test code = 1819) 40.0 % POCT-GLUCOSE [id number] 06:01:00 Test Item Value Reference Range Interpretation Comments POC-GLUCOSE METER 154 mg/dL 70-110 H TESTED AT [facility] 6720 (BEAKER) (test code = [place] 1538) [address] [id number] 05:02:00 Test Item Value Reference Range Interpretation Comments MAGNESIUM (BEAKER) (test code = 2.0 mg/dL 1.6-2.6 627) BASIC METABOLIC [id number] 05:02:00 Test Item Value Reference Range Interpretation [...] S NOT APPLICABLE FOR DIALYSIS PATIEN TS. [id number] 04:56:00 Test Item Value Reference Range Interpretation [...] mechanical heart valves.CBC W/PLT COUNT & AUTO [id number] 04:54:00 Test Item Value Reference Range Interpretation [...] code = 2801) LACTIC ACID, ARTERIAL, WHOLE [id number] 04:39:00 Test Item Value Reference Range Interpretation Comments LACTATE BLOOD ARTERIAL (2) 1.2 mmol/L 0.5-2.2 (BEAKER) (test code = 2874) Effective 08/17/2015: Units/Reference Range ChangeNew: 0.5-2.2 mmol/L Previous: 5- 20 mg/dLCALCIUM, [id number] 04:11:00 Test Item Value Reference Range Interpretation Comments CALCIUM IONIZED (BEAKER) (test 1.17 mmol/L 1.12-1.27 code = 698) PH, BLOOD (BEAKER) (test code = 7.44 1810) BLOOD GAS, [id number] 04:11:00 Test Item Value Reference Range Interpretation [...] code = 1819) 40.0 % OXYGEN SATURATION, [id number] 04:09:00 Test Item Value Reference Range Interpretation Comments O2 SATURATION (MEASURED) (BEAKER) 80.7 % (test code = 1455) POCT-GLUCOSE [id number] 02:46:00 Test Item Value Reference Range Interpretation Comments POC-GLUCOSE METER 150 mg/dL 70-110 H TESTED AT [place] [address] (BEAKER) (test code = TISHA Cazares [facility] 1538) [address] POCT-GLUCOSE [id number] 18:29:00 Test Item Value Reference Range Interpretation Comments POC-GLUCOSE METER 111 mg/dL 70-110 H TESTED AT [place] [address] [facility] (test code = TISHA Cazares [facility] 1538) [address] [id number] 16:27:00 Test Item Value Reference Range Interpretation Comments POTASSIUM (BEAKER) (test code = 4.2 meq/L 3.5-5.1 379) [id number] 16:27:00 Test Item Value Reference Range Interpretation Comments MAGNESIUM (BEAKER) (test code = 2.1 mg/dL 1.6-2.6 627) [id number] 16:27:00 Test Item Value Reference Range Interpretation Comments SODIUM (BEAKER) (test code = 381) 141 meq/L 136-145 BASIC METABOLIC [id number] 16:27:00 Test Item Value Reference Range Interpretation [...] DIALYSIS PATIEN TS. LACTIC ACID, ARTERIAL, WHOLE [id number] 16:23:00 Test Item Value Reference Range Interpretation Comments LACTATE BLOOD 1.8 mmol/L 0.5-2.2 Specimen sligh tly ARTERIAL (2) (BEAKER) hemoly zed (test code = 2874) Effective 08/17/2015: Units/Reference Range ChangeNew: 0.5-2.2 mmol/L Previous: 5- 20 mg/dLPT/[id number] 16:18:00 Test Item Value Reference Range Interpretation [...] for patients with mechanical heart valves.HEMOGLOBIN AND [id number] 16:10:00 Test Item Value Reference Range Interpretation [...] (BEAKER) (test code = 413) BLOOD GAS, [id number] 16:03:00 Test Item Value Reference Range Interpretation [...] (test code = 1819) 60.0 % CALCIUM, [id number] 16:03:00 Test Item Value Reference Range Interpretation Comments CALCIUM IONIZED ([facility]) (test 1.18 mmol/L 1.12-1.27 code = 698) PH, BLOOD ([facility]) (test code = 7.36 1810) OXYGEN SATURATION, [id number] 16:02:00 Test Item Value Reference Range Interpretation Comments O2 SATURATION (MEASURED) ([facility]) 82.9 % (test code = 1455) [id number] 15:26:00 Test Item Value Reference Range Interpretation Comments ACTIVATED CLOTTING TIME 120 sec TEST ED AT [place] [address] ([facility]) (test code = TISHA Cazares [facility] 441) [id number] 15:26:00 Test Item Value Reference Range Interpretation Comments ACTIVATED CLOTTING TIME 802 sec TEST ED AT [place] [address] ([facility]) (test code = TISHA Cazares [place] [address]) [id number] 15:26:00 Test Item Value Reference Range Interpretation Comments ACTIVATED CLOTTING TIME 884 sec TEST ED AT [place] [address] ([facility]) (test code = TISHA Cazares [place] [address]) [id number] 15:26:00 Test Item Value Reference Range Interpretation Comments ACTIVATED CLOTTING TIME 621 sec TEST ED AT [place] [address] ([facility]) (test code = TISHA Cazares [place] [address]) [id number] THROMBOELASTOGRAPH (TEG)2016-11-28 14:00:00 Test Item Value Reference Range Interpretation Comments TEG ACTIVATED CLOTTING TIME 8.7 minutes 4.0-7.0 H ([facility]) (test code = 1407) TEG FIBRINOGEN ACTIVITY (BEAKER) 73.1 degrees 61.0-73.0 H (test code = 1408) TEG PLT. AGGREGATION (BEAKER) 70.6 MM 55.0-65.0 H (test code = 1409) TGH ACTIVATED CLOTTING TIME 8.7 minutes 4.0-7.0 H ([facility]) (test code = 1411) TGH FIBRINOGEN ACTIVITY (BEAKER) 73.0 degrees 61.0-73.0 (test code = 1412) TGH PLT. AGGREGATION (BEAKER) 69.3 MM 55.0-65.0 H (test code = 1413) [id number] 13:28:00 Test Item Value Reference Range Interpretation Comments FIBRINOGEN LEVEL (BEAKER) (test 458 mg/dl 225-434 H code = 658) [id number] 13:28:00 Test Item Value Reference Range Interpretation Comments PARTIAL THROMBOPLASTIN TIME 39.7 seconds 22.5-36.0 H (BEAKER) (test code = 760) PROTHROMBIN [id number] 13:27:00 Test Item Value Reference Range Interpretation Comments PROTIME (BEAKER) (test code = 17.4 seconds 11.7-14.7 H 759) INR (BEAKER) (test code = 370) 1.4 <=5.9 RECOMMENDED COUMADIN/WARFARIN INR THERAPY RANGESSTANDARD DOSE: 2.0 - 3.0 Includes: PROPHYLAXIS for venous thrombosis, systemic embolization; TREATMENT for venous thrombosis and/or pulmonary embolus.HIGH RISK: Target INR is 2.5-3.5 for patients with mechanical heart valves.PLATELET [id number] 13:21:00 Test Item Value Reference Range Interpretation Comments PLATELET COUNT 151 K/CU MM 150-450 Discordant re sult (BEAKER) (test code compared to previous = 756) result; clinica l correlation req uired. CALCIUM, [id number] 13:06:00 Test Item Value Reference Range Interpretation Comments CALCIUM IONIZED (BEAKER) (test 1.07 mmol/L 1.12-1.27 L code = 698) PH, BLOOD (BEAKER) (test code = 7.31 1810) SODIUM NA-STAT [id number] 13:05:00 Test Item Value Reference Range Interpretation Comments SODIUM (BEAKER) (test code = 381) 135 meq/L 135-148 POTASSIUM-STAT [id number] 13:05:00 Test Item Value Reference Range Interpretation Comments POTASSIUM (BEAKER) (test code = 4.4 meq/L 3.6-5.5 379) BLOOD GAS, [id number] 13:05:00 Test Item Value Reference Range Interpretation [...] (test code = 1819) 67.0 % GLUCOSE-STAT [id number] 13:05:00 Test Item Value Reference Range Interpretation Comments GLUCOSE RANDOM (BEAKER) (test code 145 mg/dL 70-110 H = 652) HGB/HCT (H&H) - STAT [id number] 13:05:00 Test Item Value Reference Range Interpretation Comments HEMOGLOBIN (BEAKER) (test code = 10.2 g/dL 13.0-16.8 L 410) HEMATOCRIT (BEAKER) (test code = 30.0 % 40.0-50.0 L 411) BLOOD GAS, [id number] 12:26:00 Test Item Value Reference Range Interpretation [...] (test code = 1819) 65.0 % GLUCOSE-STAT [id number] 12:26:00 Test Item Value Reference Range Interpretation Comments GLUCOSE RANDOM (BEAKER) (test code 132 mg/dL 70-110 H = 652) HGB/HCT (H&H) - STAT [id number] 12:26:00 Test Item Value Reference Range Interpretation Comments HEMOGLOBIN (BEAKER) (test code = 10.6 g/dL 13.0-16.8 L 410) HEMATOCRIT (BEAKER) (test code = 31.0 % 40.0-50.0 L 411) SODIUM NA-STAT [id number] 12:25:00 Test Item Value Reference Range Interpretation Comments SODIUM (BEAKER) (test code = 381) 136 meq/L 135-148 POTASSIUM-STAT [id number] 12:25:00 Test Item Value Reference Range Interpretation Comments POTASSIUM (BEAKER) (test code = 4.4 meq/L 3.6-5.5 379) BLOOD GAS, [id number] 12:03:00 Test Item Value Reference Range Interpretation [...] (test code = 1819) 65.0 % POTASSIUM-STAT [id number] 12:00:00 Test Item Value Reference Range Interpretation Comments POTASSIUM (BEAKER) (test code = 4.7 meq/L 3.6-5.5 379) BLOOD GAS, [id number] 12:00:00 Test Item Value Reference Range Interpretation [...] (test code = 1819) 65.0 % GLUCOSE-STAT [id number] 12:00:00 Test Item Value Reference Range Interpretation Comments GLUCOSE RANDOM (BEAKER) (test code 140 mg/dL 70-110 H = 652) HGB/HCT (H&H) - STAT [id number] 12:00:00 Test Item Value Reference Range Interpretation Comments HEMOGLOBIN (BEAKER) (test code = 10.4 g/dL 13.0-16.8 L 410) HEMATOCRIT (BEAKER) (test code = 31.0 % 40.0-50.0 L 411) SODIUM NA-STAT [id number] 12:00:00 Test Item Value Reference Range Interpretation Comments SODIUM (BEAKER) (test code = 381) 131 meq/L 135-148 L PLATELET AGGREGATION: FUNCTION [id number] 11:08:00 Test Item Value Reference Range Interpretation Comments WEAK ADP 76 % 60-91 RESULT(BEAKER) (test code = 2135) PLATELET FUNCTION 60-100% indicates SCREEN INTERP (BEAKER) normal platelet (test code = 2173) function [id number] Mari Phelan MD (BEAKER) (test code = (electronic signature) 8026) PLATELET COUNT AGG 222 K/CU MM 150-450 (BEAKER) (test code = 2656) for patients on clopidogrel in past two weeksHEMOGLOBIN [id number] 08:57:00 Test Item Value Reference Range Interpretation Comments HEMOGLOBIN A1C (BEAKER) (test code = 5.0 % 4.3-6.1 368) CBC W/PLT COUNT & AUTO [id number] 05:54:00 Test Item Value Reference Range Interpretation [...] 0-1 PERCENT (BEAKER) (test code = 2801) [id number] 05:37:00 Test Item Value Reference Range Interpretation Comments PARTIAL THROMBOPLASTIN TIME 56.5 seconds 22.5-36.0 H (BEAKER) (test code = 760) BASIC METABOLIC [id number] 05:33:00 Test Item Value Reference Range Interpretation [...] NOT APPLICABLE FOR DIALYSIS PATIEN TS. PROTHROMBIN TIME/[id number] 05:33:00 Test Item Value Reference Range Interpretation Comments PROTIME (BEAKER) (test code = 13.3 seconds 11.7-14.7 759) INR (BEAKER) (test code = 370) 1.0 <=5.9 RECOMMENDED COUMADIN/WARFARIN INR THERAPY RANGESSTANDARD DOSE: 2.0 - 3.0 Includes: PROPHYLAXIS for venous thrombosis, systemic embolization; TREATMENT for venous thrombosis and/or pulmonary embolus.HIGH RISK: Target INR is 2.5-3.5 for patients with mechanical heart valves.[id number] 19:22:00 Test Item Value Reference Range Interpretation Comments PARTIAL THROMBOPLASTIN TIME 37.4 seconds 22.5-36.0 H (BEAKER) (test code = 760) PROTHROMBIN TIME/[id number] 19:21:00 Test Item Value Reference Range Interpretation Comments PROTIME (BEAKER) (test code = 12.8 seconds 11.7-14.7 759) INR (BEAKER) (test code = 370) 1.0 <=5.9 RECOMMENDED COUMADIN/WARFARIN INR THERAPY RANGESSTANDARD DOSE: 2.0 - 3.0 Includes: PROPHYLAXIS for venous thrombosis, systemic embolization; TREATMENT for venous thrombosis and/or pulmonary embolus.HIGH RISK: Target INR is 2.5-3.5 for patients with mechanical heart valves.[id number] 11:49:00 Test Item Value Reference Range Interpretation Comments PARTIAL THROMBOPLASTIN TIME 34.7 seconds 22.5-36.0 (BEAKER) (test code = 760) Prior to initiating heparinPLATELET [id number] 11:31:00 Test Item Value Reference Range Interpretation Comments PLATELET COUNT (BEAKER) (test 199 K/CU MM 150-450 code = 756) PLATELET AGGREGATION: FUNCTION [id number] 11:12:00 Test Item Value Reference Range Interpretation Comments WEAK ADP 90 % 60-91 RESULT(BEAKER) (test code = 2135) PLATELET FUNCTION 60-100% indicates SCREEN INTERP (BEAKER) normal platelet (test code = 2173) function [id number] Mari Phelan MD ([facility]) (test code = (electronic signature) 1507) PLATELET COUNT AGG 200 K/CU MM 150-450 (BEAKER) (test code = 2656) HEMOGLOBIN [id number] 08:38:00 Test Item Value Reference Range Interpretation Comments HEMOGLOBIN A1C (BEAKER) (test code = 5.5 % 4.3-6.1 368) TROPONIN [id number] 08:35:00 Test Item Value Reference Range Interpretation [...] 0.0-4.9CK-MB Reference Range:<6.7 Normal6.7-10.0 Borderline>10.0 Abnormal POCT-GLUCOSE [id number] 08:23:00 Test Item Value Reference Range Interpretation Comments POC-GLUCOSE METER 104 mg/dL 70-110 TESTED AT [facility] 6720 (BEAKER) (test code = TISHA HINES [place] 1538) [address] PROTHROMBIN TIME/[id number] 04:32:00 Test Item Value Reference Range Interpretation Comments PROTIME (BEAKER) (test code = 13.5 seconds 11.7-14.7 759) INR (BEAKER) (test code = 370) 1.0 <=5.9 RECOMMENDED COUMADIN/WARFARIN INR THERAPY RANGESSTANDARD DOSE: 2.0 - 3.0 Includes: PROPHYLAXIS for venous thrombosis, systemic embolization; TREATMENT for venous thrombosis and/or pulmonary embolus.HIGH RISK: Target INR is 2.5-3.5 for patients with mechanical heart valves.[id number] 02:13:00 Test Item Value Reference Range Interpretation Comments PHOSPHORUS (BEAKER) (test code = 3.9 mg/dL 2.3-4.7 604) [id number] 02:13:00 Test Item Value Reference Range Interpretation Comments MAGNESIUM (BEAKER) (test code = 2.1 mg/dL 1.6-2.6 627) BASIC METABOLIC [id number] 02:13:00 Test Item Value Reference Range Interpretation [...] PATIEN TS. CBC W/PLT COUNT & AUTO [id number] 01:44:00 Test Item Value Reference Range Interpretation [...] 0-1 PERCENT (BEAKER) (test code = 2801) PT/[id number] 01:31:00 Test Item Value Reference Range Interpretation [...] 2.5-3.5 for patients with mechanical heart valves.TROPONIN [id number] 00:46:00 Test Item Value Reference Range Interpretation [...] Previous: 0.0-4.9CK-MB Reference Range:<6.7 Normal6.7-10.0 Borderline>10.0 Abnormal [id number] 06:58:00 Test Item Value Reference Range Interpretation Comments PHOSPHORUS (BEAKER) (test code = 3.7 mg/dL 2.3-4.7 604) [id number] 06:58:00 Test Item Value Reference Range Interpretation Comments MAGNESIUM (BEAKER) (test code = 1.9 mg/dL 1.6-2.6 627) BASIC METABOLIC [id number] 06:58:00 Test Item Value Reference Range Interpretation [...] S NOT APPLICABLE FOR DIALYSIS PATIEN TS. [id number] 06:36:00 Test Item Value Reference Range Interpretation Comments PHOSPHORUS (BEAKER) (test code = 4.1 mg/dL 2.3-4.7 604) [id number] 06:36:00 Test Item Value Reference Range Interpretation Comments MAGNESIUM (BEAKER) (test code = 2.0 mg/dL 1.6-2.6 627) BASIC METABOLIC [id number] 06:36:00 Test Item Value Reference Range Interpretation [...] S NOT APPLICABLE FOR DIALYSIS PATIEN TS. [id number] 15:50:00 Test Item Value Reference Range Interpretation Comments RPR SCREEN (BEAKER) (test code = Nonreactive Nonreactive 420) HEMOGLOBIN [id number] 10:29:00 Test Item Value Reference Range Interpretation Comments HEMOGLOBIN A1C (BEAKER) (test code = 5.4 % 4.3-6.1 368) VITAMIN B12 AND [id number] 09:21:00 Test Item Value Reference Range Interpretation Comments VITAMIN B12 (BEAKER) (test code = 335 pg/mL 213-816 774) FOLATE (BEAKER) (test code = 362) 36.6 ng/mL >=7.0 Effective 03/02/2014: Folate Reference Range ChangeNew: >=7.0 Previous: >=5.4CBC W/PLT COUNT & AUTO [id number] 08:15:00 Test Item Value Reference Range Interpretation [...] (test code = 417) 0.00TSH/FREE T4 IF [id number] 08:00:00 Test Item Value Reference Range Interpretation Comments THYROID STIMULATING HORMONE 1.39 uIU/mL 0.35-4.94 (BEAKER) (test code = 772) BASIC METABOLIC [id number] 07:26:00 Test Item Value Reference Range Interpretation [...] TO CALCU LATE m ESTIMATED GFR. LIPID [id number] 07:26:00 Test Item Value Reference Range Interpretation [...] (test code = 3.8 mg/dL 2.3-4.7 604) [id number] 07:25:00 Test Item Value Reference Range Interpretation Comments MAGNESIUM (BEAKER) (test code = 2.0 mg/dL 1.6-2.6 627) URINALYSIS W/ [id number] 19:16:00 Test Item Value Reference Range Interpretation [...] 520) SOURCE(BEAKER) (test code = Urine, Voided 0526) BLOOD [id number] 11:00:00 Test Item Value Reference Range Interpretation Comments CULTURE (BEAKER) (test No growth in 5 days code = 1095) BLOOD [id number] 11:00:00 Test Item Value Reference Range Interpretation Comments CULTURE (BEAKER) (test No growth in 5 days code = 1095) BASIC METABOLIC [id number] 05:33:00 Test Item Value Reference Range Interpretation [...] ESTIMATED GFR. CBC W/PLT COUNT & AUTO [id number] 05:04:00 Test Item Value Reference Range Interpretation [...] 0.00-0.20 (test code = 417) 0.00VANCOMYCIN LEVEL, [id number] 21:36:00 Test Item Value Reference Range Interpretation Comments VANCOMYCIN TROUGH (BEAKER) (test 9.5 ug/mL 10.0-20.0 L code = 522) Please draw prior to 4th vancomycin doseVITAMIN B12 AND [id number] 04:33:00 Test Item Value Reference Range Interpretation Comments VITAMIN B12 (BEAKER) (test code = 599 pg/mL 213-816 774) FOLATE (BEAKER) (test code = 362) 7.7 ng/mL >=7.0 Effective 03/02/2014: Folate Reference Range ChangeNew: >=7.0 Previous: >=5.4HEPATIC FUNCTION [id number] 03:58:00 Test Item Value Reference Range Interpretation [...] = 12 U/L 6-55 347) BASIC METABOLIC [id number] 03:58:00 Test Item Value Reference Range Interpretation [...] ESTIMATED GFR. CBC W/PLT COUNT & AUTO [id number] 03:45:00 Test Item Value Reference Range Interpretation [...] K/ L 0.00-0.20 (test code = 417) [id number] 03:18:00 Test Item Value Reference Range Interpretation Comments PARTIAL THROMBOPLASTIN TIME 42.6 seconds 22.5-36.0 H (BEAKER) (test code = 760) PROTHROMBIN TIME/[id number] 03:17:00 Test Item Value Reference Range Interpretation Comments PROTIME (BEAKER) (test code = 13.0 seconds 11.7-14.7 759) INR (BEAKER) (test code = 370) 1.0 <=5.9 RECOMMENDED COUMADIN/WARFARIN INR THERAPY RANGESSTANDARD DOSE: 2.0 - 3.0 Includes: PROPHYLAXIS for venous thrombosis, systemic embolization; TREATMENT for venous thrombosis and/or pulmonary embolus.HIGH RISK: Target INR is 2.5-3.5 for patients with mechanical heart valves.BASIC METABOLIC [id number] 02:48:00 Test Item Value Reference Range Interpretation [...] ESTIMATED GFR. CBC W/PLT COUNT & AUTO [id number] 02:47:00 Test Item Value Reference Range Interpretation [...] K/ L 0.00-0.20 (test code = 417) 0.59WHLLLKWKW8901-94-18 09:18:00 Test Item Value Reference Range Interpretation Comments AGAP (test code = AGAP) 14.0 10.0-20.0 N [facility]BcjelflKETZRBGIR6541-36-17 09:18:00 Test Item Value Reference Range Interpretation Comments Chloride Lvl (test code = Chloride Lvl) 110 95-109 [facility] Hospi[id number] 09:18:00 Test Item Value Reference Range Interpretation Comments CO2 (test code = CO2) 26 24-32 N [facility] HospitalDroloabGRGIMSSBT3712-76-10 09:18:00 Test Item Value Reference Range Interpretation Comments Calcium Lvl (test code = Calcium Lvl) 9.1 8.5-10.5 N [facility]UhkiusiIILKKSHKH3311-82-71 09:18:00 Test Item Value Reference Range Interpretation Comments Sodium Lvl (test code = Sodium Lvl) 146 135-145 H [facility] HospitalJhgtslzRMMJVBYWH2847-42-38 09:18:00 Test Item Value Reference Range Interpretation Comments Potassium Lvl (test code = Potassium 4.0 3.5-5.1 N Lvl) [facility] HospitalPyqvzbdKYBTVXIGX6841-79-67 09:18:00 Test Item Value Reference Range Interpretation Comments BUN (test code = BUN) 11 7-22 N [facility] HospitalJmywqhoTPHWXWXVL0701-43-97 09:18:00 Test Item Value Reference Range Interpretation Comments Glucose Lvl (test code = Glucose Lvl) 107 70-99 H [facility] HospitalLvwrhboHHZUGQCMK1127-63-34 09:18:00 Test Item Value Reference Range Interpretation Comments Creatinine Lvl (test code = Creatinine 0.7 0.5-1.4 N Lvl) [facility]Hkg[facility]qwxXLQAGBGSHK9492-20-83 09:18:00 Test Item Value Reference Range Interpretation Comments RDW (test code = RDW) 13.6 11.5-14.5 N [facility] CenterKeaiudsMXTRFOUWFS6965-41-76 09:18:00 Test Item Value Reference Range Interpretation Comments MCV (test code = MCV) 98.9 80.0-94.0 H [facility] CenterPchpuwrJFWMWQBERO0974-55-59 09:18:00 Test Item Value Reference Range Interpretation Comments Hct (test code = Hct) 38.8 42.0-54.0 L [facility] CenterXvofvevMBFSMVDJIU4530-80-23 09:18:00 Test Item Value Reference Range Interpretation Comments MPV (test code = MPV) 9.7 7.4-10.4 N [facility] CenterSsjwxhhZCPPUZWQDH1775-53-73 09:18:00 Test Item Value Reference Range Interpretation Comments Platelet (test code = Platelet) 188 133-450 N [facility] CenterOadpmerFFUZJJQANM7853-24-35 09:18:00 Test Item Value Reference Range Interpretation Comments MCHC (test code = MCHC) 34.5 32.0-36.0 N [facility] CenterXhehjysJYGLJFJSKY1859-34-64 09:18:00 Test Item Value Reference Range Interpretation Comments MCH (test code = MCH) 34.2 pg 27.0-31.0 H [facility] CenterUdbbmvdHIWFKFTCSU5986-97-15 09:18:00 Test Item Value Reference Range Interpretation Comments Hgb (test code = Hgb) 13.4 14.0-18.0 L [facility] CenterAmbwvmyDQKFNOFKEC1327-23-49 09:18:00 Test Item Value Reference Range Interpretation Comments WBC (test code = WBC) 5.8 3.7-10.4 N [facility] CenterHslbbviNJWTYFIPWP9980-37-43 09:18:00 Test Item Value Reference Range Interpretation Comments RBC (test code = RBC) 3.92 4.70-6.10 L [facility] CenterZxbhmtbWFTGPZBTNR4329-42-87 09:18:00 Test Item Value Reference Range Interpretation Comments Monocytes # (test code = Monocytes #) 0.8 <=0.8 N [facility] CenterHstohriNSPRWACPVE9636-38-67 09:18:00 Test Item Value Reference Range Interpretation Comments Lymphocytes # (test code = Lymphocytes 2.4 1.0-5.5 N #) [facility] CenterTzxcmhxCNQPZOKSBU2302-76-70 09:18:00 Test Item Value Reference Range Interpretation Comments Basophils # (test code = Basophils #) 0.0 <=0.2 N [facility] CenterLryxexmBELQXKFYPT5408-19-22 09:18:00 Test Item Value Reference Range Interpretation Comments Eosinophils # (test code = Eosinophils 0.2 <=0.5 N #) [facility] CenterWemjytgVJPNGUAWDW2306-07-60 09:18:00 Test Item Value Reference Range Interpretation Comments Lymphocytes (test code = Lymphocytes) 41.3 20.0-40.0 H [facility] CenterQbyljsxJSZVPUEOZU0654-73-48 09:18:00 Test Item Value Reference Range Interpretation Comments Segs (test code = Segs) 41.0 45.0-75.0 L [facility] CenterAbkrfhaGUPSAKKMZN1298-92-63 09:18:00 Test Item Value Reference Range Interpretation Comments Eosinophils (test code = Eosinophils) 3.9 <=4.0 N [facility] CenterDpfnqbrVTBLLRXAPI6458-37-40 09:18:00 Test Item Value Reference Range Interpretation Comments Segs-Bands # (test code = Segs-Bands #) 2.4 1.5-8.1 N [facility] CenterFwizeeqLOUXDFWJNU8854-76-21 09:18:00 Test Item Value Reference Range Interpretation Comments Basophils (test code = Basophils) 0.3 <=1.0 N [facility] CenterOdwkwyhCQMRNNAQYR1718-35-91 09:18:00 Test Item Value Reference Range Interpretation Comments Monocytes (test code = Monocytes) 13.5 2.0-12.0 H [facility] GLUCOSE RXKVGNL7440-81-99 21:40:00 Test Item Value Reference Range Interpretation Comments Comment1 (test code = Comment1) Notify RN/MD [facility] GLUCOSE [id number] 21:40:00 Test Item Value Reference Range Interpretation Comments Gluc POC Lifscn (test code = Gluc POC 121 70-99 H Lifscn) [facility] HospitalKfjvbpmLORIXTOTD9180-98-36 10:14:00 Test Item Value Reference Range Interpretation Comments CO2 (test code = CO2) 30 24-32 N [facility] HospitalQhrlojeGPRSQHXMT0572-84-29 10:14:00 Test Item Value Reference Range Interpretation Comments Calcium Lvl (test code = Calcium Lvl) 9.0 8.5-10.5 N [facility] HospitalAigxdwtUYPCOXCUO9750-91-43 10:14:00 Test Item Value Reference Range Interpretation Comments Glucose Lvl (test code = Glucose Lvl) 86 70-99 N [facility] HospitalQiwbakbVTZROAACC7909-76-42 10:14:00 Test Item Value Reference Range Interpretation Comments Potassium Lvl (test code = Potassium 4.4 3.5-5.1 N Lvl) [facility] HospitalVacjdytBHGYOHLTA1137-36-15 10:14:00 Test Item Value Reference Range Interpretation Comments Chloride Lvl (test code = Chloride Lvl) 107 95-109 N [facility] HospitalXpflfcwWCGXHWRBE4596-79-22 10:14:00 Test Item Value Reference Range Interpretation Comments BUN (test code = BUN) 13 7-22 N [facility] HospitalBeupmaoJRVHNFMTI1701-18-73 10:14:00 Test Item Value Reference Range Interpretation Comments Creatinine Lvl (test code = Creatinine 0.7 0.5-1.4 N Lvl) [facility] HospitalWcmywjqWOQLESIBK3768-52-44 10:14:00 Test Item Value Reference Range Interpretation Comments Sodium Lvl (test code = Sodium Lvl) 144 135-145 N [facility] HospitalWctviedQGGUNJGFK7439-21-00 10:14:00 Test Item Value Reference Range Interpretation Comments AGAP (test code = AGAP) 11.4 10.0-20.0 N [facility] CenterZnlzxbsOYRWGWRQRY9946-19-55 10:14:00 Test Item Value Reference Range Interpretation Comments Basophils (test code = Basophils) 0.5 <=1.0 N [facility] CenterGthktieCGIHFJTHXD8998-12-38 10:14:00 Test Item Value Reference Range Interpretation Comments Eosinophils (test code = Eosinophils) 3.1 <=4.0 N [facility] CenterIlfzghpAHYKLGZZOW6920-16-25 10:14:00 Test Item Value Reference Range Interpretation Comments Segs-Bands # (test code = Segs-Bands #) 3.1 1.5-8.1 N [facility] CenterGqadfigMFNOPPKHBG7741-05-25 10:14:00 Test Item Value Reference Range Interpretation Comments Lymphocytes # (test code = Lymphocytes 2.3 1.0-5.5 N #) [facility] [id number] 10:14:00 Test Item Value Reference Range Interpretation Comments Monocytes # (test code = Monocytes #) 0.9 <=0.8 H [facility] CenterSacjjuoDMTBFCDRII6971-40-35 10:14:00 Test Item Value Reference Range Interpretation Comments Segs (test code = Segs) 48.3 45.0-75.0 N [facility] CenterBpbadfbTUIUOJYQXN7300-71-46 10:14:00 Test Item Value Reference Range Interpretation Comments Lymphocytes (test code = Lymphocytes) 34.9 20.0-40.0 N [facility] CenterZsddjciJLQCPIAMRD3393-14-65 10:14:00 Test Item Value Reference Range Interpretation Comments Macrocyte (test code = 1+ *ABN*(09/25/2011 A Macrocyte) 05:14:00) [facility] CenterRviixtfCVCQMXBPVG4265-17-43 10:14:00 Test Item Value Reference Range Interpretation Comments Eosinophils # (test code = Eosinophils 0.2 <=0.5 N #) [facility] CenterImqgbxkOCWOUOEDFF7097-40-16 10:14:00 Test Item Value Reference Range Interpretation Comments Monocytes (test code = Monocytes) 13.2 2.0-12.0 H [facility] CenterQvlliteZYIGABVBQB4970-89-57 10:14:00 Test Item Value Reference Range Interpretation Comments Basophils # (test code = Basophils #) 0.0 <=0.2 N [facility] CenterNhqunsnOFWQQWKLPV5145-35-82 10:14:00 Test Item Value Reference Range Interpretation Comments MPV (test code = MPV) 9.1 7.4-10.4 N [facility] CenterUxaorvhEKXYFNLDFJ6468-79-65 10:14:00 Test Item Value Reference Range Interpretation Comments Platelet (test code = Platelet) 183 133-450 N [facility] CenterKvgibosNTEBALIGLD4327-38-61 10:14:00 Test Item Value Reference Range Interpretation Comments RDW (test code = RDW) 14.3 11.5-14.5 N [facility] CenterYfjgznlHXWKAUAHEC8267-13-61 10:14:00 Test Item Value Reference Range Interpretation Comments MCHC (test code = MCHC) 34.1 32.0-36.0 N [facility] CenterLkabvkbLYZRDEHIGX9923-05-69 10:14:00 Test Item Value Reference Range Interpretation Comments Hct (test code = Hct) 42.1 42.0-54.0 N [facility] CenterAwyvhiaOVMXOXYNMH3209-24-90 10:14:00 Test Item Value Reference Range Interpretation Comments Hgb (test code = Hgb) 14.4 14.0-18.0 N [facility] CenterYpnujbwAIRKXOADWR2509-31-71 10:14:00 Test Item Value Reference Range Interpretation Comments WBC (test code = WBC) 6.4 3.7-10.4 N [facility] CenterJfbfqhtSNAJYYDRHV2601-44-87 10:14:00 Test Item Value Reference Range Interpretation Comments MCV (test code = MCV) 99.3 80.0-94.0 H [facility] CenterVtzywylQQSFESIOCN2286-53-04 10:14:00 Test Item Value Reference Range Interpretation Comments RBC (test code = RBC) 4.24 4.70-6.10 L [facility] CenterJtwdjsxTMFITLDZGT8017-26-68 10:14:00 Test Item Value Reference Range Interpretation Comments MCH (test code = MCH) 33.9 pg 27.0-31.0 [facility]SnvpqoiHVWAZJOEY2688-88-11 09:04:00 Test Item Value Reference Range Interpretation Comments CO2 (test code = CO2) 25 24-32 N [facility] HospitalTewdczcORGDBEVLP9938-11-23 09:04:00 Test Item Value Reference Range Interpretation Comments Calcium Lvl (test code = Calcium Lvl) 9.0 8.5-10.5 N [facility] HospitalGmmwxneBYPLSNTBO9101-07-56 09:04:00 Test Item Value Reference Range Interpretation Comments AGAP (test code = AGAP) 13.1 10.0-20.0 N [facility] CenterHclyxhuRHWSOPYYEX9936-94-65 09:04:00 Test Item Value Reference Range Interpretation Comments Macrocyte (test code = 1+ *ABN*(09/18/2011 A Macrocyte) 04:04:00) [facility] CenterPpzopyuBQKFBLGNDC7639-94-07 09:04:00 Test Item Value Reference Range Interpretation Comments Monocytes # (test code = Monocytes #) 0.9 <=0.8 H [facility] CenterGtzvhsoBGLQDNGZLO5997-22-67 09:04:00 Test Item Value Reference Range Interpretation Comments Lymphocytes # (test code = Lymphocytes 2.1 1.0-5.5 N #) [facility] CenterDfvyhylAQSXYQVHTV5273-27-56 09:04:00 Test Item Value Reference Range Interpretation Comments Segs (test code = Segs) 54.6 45.0-75.0 N [facility] CenterUtpbtrwOJZNUUSTYW7920-62-35 09:04:00 Test Item Value Reference Range Interpretation Comments Eosinophils # (test code = Eosinophils 0.2 <=0.5 N #) [facility] CenterGvhxpbnIRTCJGSDDC4274-31-96 09:04:00 Test Item Value Reference Range Interpretation Comments Eosinophils (test code = Eosinophils) 2.3 <=4.0 N [facility] CenterQyailviPGDRGTOKBM6491-64-18 09:04:00 Test Item Value Reference Range Interpretation Comments Monocytes (test code = Monocytes) 12.9 2.0-12.0 H [facility] CenterZzxtyapPMFEESTNND6586-22-62 09:04:00 Test Item Value Reference Range Interpretation Comments Lymphocytes (test code = Lymphocytes) 29.9 20.0-40.0 N [facility] CenterHtqjpdaXVHALATKUZ7929-24-93 09:04:00 Test Item Value Reference Range Interpretation Comments Basophils (test code = Basophils) 0.3 <=1.0 N [facility] CenterOfbyesxEHDDLEKNBM4805-24-19 09:04:00 Test Item Value Reference Range Interpretation Comments Basophils # (test code = Basophils #) 0.0 <=0.2 N [facility] CenterZoajweaJJQHZIXWZU9038-87-73 09:04:00 Test Item Value Reference Range Interpretation Comments Segs-Bands # (test code = Segs-Bands #) 3.8 1.5-8.1 N [facility] CenterSzebhxiCONRDODXID2742-88-41 09:04:00 Test Item Value Reference Range Interpretation Comments Hct (test code = Hct) 43.5 42.0-54.0 N [facility] CenterNijvehlZVFJFRMZBW1909-64-80 09:04:00 Test Item Value Reference Range Interpretation Comments MCV (test code = MCV) 99.4 80.0-94.0 H [facility] CenterGywhsusBJANJYLBTL2298-82-55 09:04:00 Test Item Value Reference Range Interpretation Comments Hgb (test code = Hgb) 14.8 14.0-18.0 N [facility] CenterToyvrqeESDHAQFURO5120-82-40 09:04:00 Test Item Value Reference Range Interpretation Comments RBC (test code = RBC) 4.37 4.70-6.10 L [facility] CenterHvwdnorVAQOCZHXAB6651-87-93 09:04:00 Test Item Value Reference Range Interpretation Comments WBC (test code = WBC) 6.9 3.7-10.4 N [facility] CenterMuvdebxDGUKFFCPMT8803-92-78 09:04:00 Test Item Value Reference Range Interpretation Comments Platelet (test code = Platelet) 178 133-450 N [facility] CenterBsthxfuVXMNCJDMYI6886-42-44 09:04:00 Test Item Value Reference Range Interpretation Comments MCHC (test code = MCHC) 34.2 32.0-36.0 N [facility] CenterCkpdaikMNISWTCWEH7173-65-32 09:04:00 Test Item Value Reference Range Interpretation Comments MPV (test code = MPV) 9.1 7.4-10.4 N [facility] CenterTuvaepeZTBAMQTEKF6993-33-68 09:04:00 Test Item Value Reference Range Interpretation Comments RDW (test code = RDW) 13.9 11.5-14.5 N [facility] CenterDztmjcvPXLVVYDHYW2884-36-49 09:04:00 Test Item Value Reference Range Interpretation Comments MCH (test code = MCH) 33.9 pg 27.0-31.0 H [facility] HospitalQpwlcvjSMKVYYFRZ6674-89-74 09:04:00 Test Item Value Reference Range Interpretation Comments Glucose Lvl (test code = Glucose Lvl) 95 70-99 N [facility] HospitalJfuprlpVLTTDYQCP3401-42-08 09:04:00 Test Item Value Reference Range Interpretation Comments BUN (test code = BUN) 9 7-22 N [facility] HospitalTjcnumnMJUUTLSXZ2116-49-90 09:04:00 Test Item Value Reference Range Interpretation Comments Creatinine Lvl (test code = Creatinine 0.6 0.5-1.4 N Lvl) [facility] HospitalDupzvffNSAJZMLFC8115-15-74 09:04:00 Test Item Value Reference Range Interpretation Comments Sodium Lvl (test code = Sodium Lvl) 141 135-145 N [facility] HospitalGiwgzczQQCSDFDGQ6017-75-02 09:04:00 Test Item Value Reference Range Interpretation Comments Potassium Lvl (test code = Potassium 4.1 3.5-5.1 N Lvl) [facility] HospitalBsbbgcmFLWHIEYLR0888-50-62 09:04:00 Test Item Value Reference Range Interpretation Comments Chloride Lvl (test code = Chloride Lvl) 107 95-109 N [facility] TempleWuppuczXixxiajprhsv2548-26-98 14:00:00 Test Item Value Reference Range Interpretation Comments Culture: Urine (test code = Culture: Urine) [facility]GlphdouMYZTQYVCSB7037-22-16 13:25:00 Test Item Value Reference Range Interpretation Comments UA Urobilinogen (test code *NA*(09/16/2011 0.1-1.0 = UA Urobilinogen) 08:25:00) [facility] HospitalDtaxlqrOVXXNNNCLZ5928-86-71 13:25:00 Test Item Value Reference Range Interpretation Comments UA WBC (test code = UA WBC) no gt <=5 N [facility] CenterKdsnzbfFDIRUSAJQQ9759-83-28 13:25:00 Test Item Value Reference Range Interpretation Comments UA RBC (test code = UA RBC) 1 <=2 N [facility] CenterRqhhddlNWMFUYDJES9444-08-53 13:25:00 Test Item Value Reference Range Interpretation Comments UA Mucus (test code = Few /LPF UA Mucus) *NA*(09/16/2011 08:25:00) [facility] CenterTkxyzbgBLRMPAFEHO4160-34-23 13:25:00 Test Item Value Reference Range Interpretation Comments UA Ketones (test code Negative mg/dL = UA Ketones) *NA*(09/16/2011 08:25:00) [facility] CenterKysxnqmOQCCLXFYXG8059-34-29 13:25:00 Test Item Value Reference Range Interpretation Comments UA Bili (test code = Negative *NA*(09/16/2011 UA Bili) 08:25:00) [facility] CenterUyibigdANIRBSCNMN4993-46-86 13:25:00 Test Item Value Reference Range Interpretation Comments UA Blood (test code = Negative (09/16/2011 N UA Blood) 08:25:00) [facility] CenterBigozrgNAJKKTADOD0911-69-68 13:25:00 Test Item Value Reference Range Interpretation Comments UA Nitrite (test code Negative (09/16/2011 N = UA Nitrite) 08:25:00) [facility] CenterVkigfohHVMBITPQBB4265-35-04 13:25:00 Test Item Value Reference Range Interpretation Comments UA Leuk Est (test Negative (09/16/2011 N code = UA Leuk Est) 08:25:00) [facility] CenterEqnpjdkDREJEZIWBM9686-08-24 13:25:00 Test Item Value Reference Range Interpretation Comments UA Sq Epi (test code Occasional /LPF = UA Sq Epi) *NA*(09/16/2011 08:25:00) [facility] CenterUlmmxyaRBYTSHQTMG4957-17-89 13:25:00 Test Item Value Reference Range Interpretation Comments UA Glucose (test code Negative mg/dL = UA Glucose) *NA*(09/16/2011 08:25:00) [facility] CenterVevmysjJYQIXINHSS2283-86-91 13:25:00 Test Item Value Reference Range Interpretation Comments UA Protein (test code Negative mg/dL N = UA Protein) (09/16/2011 08:25:00) [facility] CenterOmbpdixRTOFDOWWDD5794-25-69 13:25:00 Test Item Value Reference Range Interpretation Comments UA Color (test code = Yellow *NA*(09/16/2011 UA Color) 08:25:00) [facility] CenterIztmpelUSDJKPWDYH1868-11-66 13:25:00 Test Item Value Reference Range Interpretation Comments UA pH (test code = UA pH) 5.5 5.0-8.0 N [facility] CenterLauupvyROUAJDLGJL3844-41-59 13:25:00 Test Item Value Reference Range Interpretation Comments UA Spec Grav (test code = UA Spec Grav) 1.017 N [facility] CenterUuvarsrPCRMEVCCVT5297-82-05 13:25:00 Test Item Value Reference Range Interpretation Comments UA Turbidity (test code = Clear (09/16/2011 N UA Turbidity) 08:25:00) [facility] CenterNyecyedCLAPSUTYRP8881-77-59 08:42:00 Test Item Value Reference Range Interpretation Comments UA Mucus (test code = Few /LPF UA Mucus) *NA*(09/15/2011 03:42:00) [facility] CenterKjhtlnmQZTDJANVXB4227-58-75 08:42:00 Test Item Value Reference Range Interpretation Comments UA RBC (test code = UA RBC) 1 <=2 N [facility] CenterUvazgkuVNGCPPAVIP4046-42-15 08:42:00 Test Item Value Reference Range Interpretation Comments UA Blood (test code = Negative (09/15/2011 N UA Blood) 03:42:00) [facility] CenterPelqzbqHTKOKTAIEB4338-70-79 08:42:00 Test Item Value Reference Range Interpretation Comments UA Nitrite (test code Negative (09/15/2011 N = UA Nitrite) 03:42:00) [facility] CenterZtnoxwyKOUHUUBZBQ9429-41-95 08:42:00 Test Item Value Reference Range Interpretation Comments UA Leuk Est (test Negative (09/15/2011 N code = UA Leuk Est) 03:42:00) [facility] CenterNzavebqYLFQJGYQET5983-15-36 08:42:00 Test Item Value Reference Range Interpretation Comments UA pH (test code = UA pH) 5.5 5.0-8.0 N [facility] CenterOezgfdiKQNJKVFMQN8437-91-68 08:42:00 Test Item Value Reference Range Interpretation Comments UA Protein (test code Negative mg/dL N = UA Protein) (09/15/2011 03:42:00) [facility]UxlxckeYJPKTNZOTZ3980-69-30 08:42:00 Test Item Value Reference Range Interpretation Comments UA Glucose (test code Negative mg/dL = UA Glucose) *NA*(09/15/2011 03:42:00) [facility]SmigcncBAJTMWUNWC0202-62-86 08:42:00 Test Item Value Reference Range Interpretation Comments UA Ketones (test code Negative mg/dL = UA Ketones) *NA*(09/15/2011 03:42:00) [facility]AbstpnzPMVKGKLGEY0019-67-28 08:42:00 Test Item Value Reference Range Interpretation Comments UA Bili (test code = Negative *NA*(09/15/2011 UA Bili) 03:42:00) [facility] HospitalJjnisapCWXZSUOKDS3675-57-85 08:42:00 Test Item Value Reference Range Interpretation Comments UA Color (test code = Yellow *NA*(09/15/2011 UA Color) 03:42:00) [facility]DfuejqkNIVWYQNGPU6849-14-34 08:42:00 Test Item Value Reference Range Interpretation Comments UA Turbidity (test code Slight A = UA Turbidity) *ABN*(09/15/2011 03:42:00) [facility]QrjplrwSBYAJQIBRV9831-22-06 08:42:00 Test Item Value Reference Range Interpretation Comments UA Spec Grav (test code = UA Spec Grav) 1.012 N [facility] HospitalIsdkvbfANHBGAKSCN9271-20-38 08:42:00 Test Item Value Reference Range Interpretation Comments UA Sq Epi (test code = UA Sq Epi) None Seen [facility] HospitalBxlszrwDOTQWOVEOF8352-83-14 08:42:00 Test Item Value Reference Range Interpretation Comments UA Urobilinogen (test code *NA*(09/15/2011 0.1-1.0 = UA Urobilinogen) 03:42:00) [facility]IqokzbgDbnqlmptuiit0367-22-60 08:42:00 Test Item Value Reference Range Interpretation Comments Culture: Urine (test code = Culture: Urine) [facility] HospitalFvxabnsGWAPSXYGY7085-64-51 08:40:00 Test Item Value Reference Range Interpretation Comments TSH (test code = TSH) 3.390 0.360-3.740 N [facility] HospitalBanttqzDQBMWWPPP3779-67-87 08:40:00 Test Item Value Reference Range Interpretation Comments T4 (test code = T4) 8.5 4.7-13.3 N [facility] HospitalVceldfiCUIBYSBNJ2950-47-77 08:40:00 Test Item Value Reference Range Interpretation Comments T3 Uptake (test code = T3 Uptake) 33 31-39 N [facility] HospitalRestjqgLWPTRWYVD5978-41-04 08:40:00 Test Item Value Reference Range Interpretation Comments TSH (test code = TSH) 3.390 0.360-3.740 N [facility] HospitalFndzyxkJSITHHAYX8738-00-87 08:40:00 Test Item Value Reference Range Interpretation Comments Total Protein (test code = Total 6.4 6.4-8.4 N Protein) [facility] HospitalRxxmxnzHJOWYSHRP0986-99-13 08:40:00 Test Item Value Reference Range Interpretation Comments AST (test code = AST) 14 <=37 N [facility] HospitalSgsabznDOGOLLLGD0123-01-00 08:40:00 Test Item Value Reference Range Interpretation Comments Bili Total (test code = Bili Total) 0.4 0.2-1.3 N [facility] HospitalSodfelfHFIWKJFUL5016-76-09 08:40:00 Test Item Value Reference Range Interpretation Comments ALT (test code = ALT) 24 <=65 N [facility] HospitalOdmsfyhMGPTFNBIL5583-97-86 08:40:00 Test Item Value Reference Range Interpretation Comments Alk Phos (test code = Alk Phos) 81 39-136 N [facility] HospitalHykizszEWVRRTSMK5684-44-26 08:40:00 Test Item Value Reference Range Interpretation Comments Albumin Lvl (test code = Albumin Lvl) 3.3 3.5-5.0 L [facility] HospitalDwjfmjvUVJOHAZQC3101-47-31 08:40:00 Test Item Value Reference Range Interpretation Comments A/G Ratio (test code = A/G Ratio) 1.1 0.7-1.6 N [facility] HospitalVfquffyKOHGRJYPR8952-19-55 08:40:00 Test Item Value Reference Range Interpretation Comments B/C Ratio (test code = B/C Ratio) 14 6-25 N [facility] HospitalLshmwhcJDYXFPENN6766-21-12 08:40:00 Test Item Value Reference Range Interpretation Comments Globulin (test code = Globulin) 3.1 2.0-4.0 N [facility] HospitalStrrpxnCILQJXNJN2949-17-12 08:40:00 Test Item Value Reference Range Interpretation Comments FTI (test code = FTI) 2.8 [facility] CenterYgwifzcRAIDJNKMYW9176-02-31 08:40:00 Test Item Value Reference Range Interpretation Comments PTT (test code = PTT) 32.4 s 22.9-35.8 N [facility] CenterGtkfxlyTBCOWMVYXF2757-36-74 08:40:00 Test Item Value Reference Range Interpretation Comments PT (test code = PT) 13.0 s 12.0-14.7 N [facility] CenterNznfrgfHPPXEVTBKQ5749-25-06 08:40:00 Test Item Value Reference Range Interpretation Comments INR (test code = INR) 0.98 0.85-1.17 N [facility]
[2023-02-08] MEDS ORDERED: HYDROCODONE/APAP 10/325 TAB ONE (13:02)
--- NOTE | 2023-02-08 13:48 | RAD REPORT ---
EXAM DESCRIPTION: RAD - Knee Left 3 View - 02/08/2023 1:36 pm CLINICAL HISTORY: Left knee pain FINDINGS: No fracture or dislocation is seen. Bones are osteoporotic. No additional significant bone or joint abnormality displayed Vascular calcifications are present
--- NOTE | 2023-02-08 14:51 | EDPHYS ---
[facility]: Bryan Graf Age: 72 yrs Sex: Male : 1950 Arrival Date: 02/08/2023 Time: 12:21 Bed 18 Private MD: ED Physician Tyler Mtz HPI: 02/08 16:44 This 72 yrs old Male presents to ER via Ambulatory with complaints of General Weakness, rt Leg Pain. 16:44 Patient presents to the ED with left leg pain that has been present for some time. rt Patient states he has been out of his oxycodone for about 1 week. States that he has had difficulty in getting in touch with pain management or his primary care. Denies other acute complaints at this time. Symptoms are moderate severity, aching nature, nonradiating, no other aggravating or elevating factors. Historical: - Allergies: 12:38 Aspirin; tm6 12:38 PENICILLINS; tm6 - PMHx: 12:38 Chronic pain; COPD; CVA; Migraine; Hypertension; Pneumonia; swelling and pain to L tm6 lower leg; Seizures; - PSHx: 12:38 back surgery; heart surgery; Right hip surgery; tm6 - Immunization history:: Client reports having NOT received the Covid vaccine. - Social history:: Smoking status: Patient reports the use of cigarette tobacco products, smokes one-half pack cigarettes per day, Patient/guardian denies using alcohol. - Family history:: not pertinent. ROS: 16:44 Constitutional: Negative for fever, chills, and weight loss, Cardiovascular: Negative rt for chest pain, palpitations, and edema, Respiratory: Negative for shortness of breath, cough, wheezing, and pleuritic chest pain, Abdomen/GI: Negative for abdominal pain, nausea, vomiting, diarrhea, and constipation, Skin: Negative for injury, rash, and discoloration, Neuro: Negative for headache, weakness, numbness, tingling, and seizure, Psych: Negative for depression, anxiety, suicide ideation, homicidal ideation, and hallucinations, 16:44 MS/extremity: Positive for pain, Negative for acute changes, Exam: 16:44 Constitutional: This is a well developed, well nourished patient who is awake, alert, rt and in no acute distress. Head/Face: Normocephalic, atraumatic. Chest/axilla: Normal chest wall appearance and motion. Nontender with no deformity. No lesions are appreciated. Cardiovascular: Regular rate and rhythm with a normal S1 and S2. No gallops, murmurs, or rubs. Normal PMI, no JVD. No pulse deficits. Respiratory: Lungs have equal breath sounds bilaterally, clear to auscultation and percussion. No rales, rhonchi or wheezes noted. No increased work of breathing, no retractions or nasal flaring. Abdomen/GI: Soft, non-tender, with normal bowel sounds. No distension or tympany. No guarding or rebound. No evidence of tenderness throughout. Skin: Warm, dry with normal turgor. Normal color with no rashes, no lesions, and no evidence of cellulitis. Neuro: Awake and alert, GCS 15, oriented to person, place, time, and situation. Cranial nerves II-XII grossly intact. Motor strength 5/5 in all extremities. Sensory grossly intact. Cerebellar exam normal. Normal gait. Psych: Awake, alert, with orientation to person, place and time. Behavior, mood, and affect are within normal limits. 16:44 Musculoskeletal/extremity: No appreciable swelling or tenderness to left lower extremity, no deformities, pulses, motor, sensation intact. Vital Signs: 12:39 BP 138 / 75; Pulse 67; Resp 18; Temp 97.7(TE); Pulse Ox 100% on R/A; Pain 8/10; tm6 12:41 Weight 72.57 kg; Height 5 ft. 8 in. ; tm6 15:20 BP 143 / 88; Pulse 63; Resp 18; Pulse Ox 98% ; nj1 12:41 Body Mass Index 24.33 (72.57 kg, 172.72 cm) tm6 12:39 Pain Scale: Adult tm6 MDM: 12:44 Patient medically screened. rt 16:44 Differential diagnosis: Chronic pain. Data reviewed: vital signs, nurses notes. Test rt considered but Not performed: Ultrasound No evidence to suggest acute arterial occlusion, ultrasound, CT scans not indicated. Counseling: I had a detailed discussion with the patient and/or guardian regarding the historical points, exam findings, and any diagnostic results supporting the discharge/admit diagnosis, radiology results, the need for outpatient follow up. Response to treatment: the patient's symptoms have markedly improved after treatment. 02/08 12:44 Order name: Knee Left 3 View XRAY; Complete Time: 14:08 rt Administered Medications: 12:49 Drug: [place] PO 10 mg-325 mg 1 tabs PO once Route: PO; tm6 15:25 Follow up: Response: No adverse reaction; Pain is decreased nj1 Disposition Summary: 02/08/23 14:51 Discharge Ordered Notes: Location: Home rt Problem: an ongoing problem rt Symptoms: have improved rt Condition: Stable rt Diagnosis - Chronic pain, not elsewhere classified rt Followup: rt - With: Kemar Hairston MD - When: 2 - 3 days - Reason: Discharge Instructions: - Discharge Summary Sheet rt - Chronic Pain, Adult rt Forms: - Medication Reconciliation Form rt - Thank You Letter rt - Antibiotic Education rt - Prescription Opioid Use rt - Patient Portal Instructions rt - Leadership Thank You Letter rt Signatures: Dispatcher [employer] Tyler Cabrera MD MD rt Manasa Alexander RN RN tm6 Katherine Ojeda RN nj1
--- NOTE | 2023-02-08 14:51 | ER ---
Nurse's Notes [facility] Name: Bryan Graf Age: 72 yrs Sex: Male : 1950 Arrival Date: 02/08/2023 Time: 12:21 Bed 18 Private MD: Diagnosis: Chronic pain, not elsewhere classified Presentation: 02/08 12:36 Chief complaint: Patient states: left knee and leg pain. Coronavirus screen: Client tm6 denies travel out of the [place] in the last 14 days. Client indicates they have traveled out of the [place] in the last 14 days. At this time, unable to obtain information related to travel outside the [place] Ebola Screen: Patient negative for fever greater than or equal to 101.5 degrees Fahrenheit, and additional compatible Ebola Virus Disease symptoms Patient denies exposure to infectious person. Patient denies travel to an Ebola-affected area in the 21 days before illness onset. No symptoms or risks identified at this time. Initial Sepsis Screen: Does the patient meet any 2 criteria? No. Patient's initial sepsis screen is negative. Does the patient have a suspected source of infection? No. Patient's initial sepsis screen is negative. Risk Assessment: Do you want to hurt yourself or someone else? Patient reports no desire to harm self or others. Onset of symptoms was February 01, 2023 at 08:00. 12:36 Method Of Arrival: Ambulatory tm6 12:36 Acuity: GELACOI 3 tm6 Triage Assessment: 12:40 General: Appears distressed, unkempt, Behavior is calm, cooperative. Pain: Complains of tm6 pain in left leg Pain began two years ago. Neuro: Level of Consciousness is awake, alert, obeys commands, Oriented to person, place, time, situation, Appropriate for age. Respiratory: Airway is patent Respiratory effort is even, unlabored, Respiratory pattern is regular, symmetrical. Musculoskeletal: Reports pain in left leg since two years. Historical: - Allergies: 12:38 Aspirin; tm6 12:38 PENICILLINS; tm6 - PMHx: 12:38 Chronic pain; COPD; CVA; Migraine; Hypertension; Pneumonia; swelling and pain to L tm6 lower leg; Seizures; - PSHx: 12:38 back surgery; heart surgery; Right hip surgery; tm6 - Immunization history:: Client reports having NOT received the Covid vaccine. - Social history:: Smoking status: Patient reports the use of cigarette tobacco products, smokes one-half pack cigarettes per day, Patient/guardian denies using alcohol. - Family history:: not pertinent. Screenin:23 [facility] ED Fall Risk Assessment (Adult) Score/Fall Risk Level 3 or more points = High nj1 Risk Oriented to surroundings, Maintained a safe environment, Hourly rounding (assess needs \T\ fall precautionary measures) done, Used ambulatory aids as needed (educated on \T\ assisted with), Remained w/in arm's length of patient and in sight while toileting, Offered frequent toileting (1:1 observation). Abuse screen: Denies threats or abuse. Denies injuries from another. Nutritional screening: No deficits noted. Tuberculosis screening: No symptoms or risk factors identified. Assessment: 15:20 General: Appears in no apparent distress. comfortable, Behavior is calm, cooperative, nj1 appropriate for age. 15:20 Pain: Complains of pain in left leg. Neuro: Level of Consciousness is awake, alert, nj1 obeys commands, Oriented to person, place, situation. Cardiovascular: Patient's skin is warm and dry. Respiratory: Airway is patent Respiratory effort is even, unlabored. Musculoskeletal: Reports pain in left leg. Vital Signs: 12:39 BP 138 / 75; Pulse 67; Resp 18; Temp 97.7(TE); Pulse Ox 100% on R/A; Pain 8/10; tm6 12:41 Weight 72.57 kg; Height 5 ft. 8 in. ; tm6 15:20 BP 143 / 88; Pulse 63; Resp 18; Pulse Ox 98% ; nj1 12:41 Body Mass Index 24.33 (72.57 kg, 172.72 cm) tm6 12:39 Pain Scale: Adult tm6 ED Course: 12:22 Patient arrived in ED. ts1 12:29 Tyler Mtz MD is Attending Physician. rt 12:38 Triage completed. tm6 12:39 Arm band placed on right wrist. tm6 13:37 Knee Left 3 View XRAY In Process Unspecified. EDMS 14:31 Katherine Ojeda RN is Primary Nurse. nj1 14:50 Kemar Hairston MD is Referral Physician. rt 15:20 Patient has correct armband on for positive identification. Bed in low position. Call nj light in reach. 15:20 Provided Education on: discharge instructions. nj1 15:23 No provider procedures requiring assistance completed. Patient did not have IV access nj1 during this emergency room visit. Administered Medications: 12:49 Drug: [place] PO 10 mg-325 mg 1 tabs PO once Route: PO; tm6 15:25 Follow up: Response: No adverse reaction; Pain is decreased nj1 Medication: 15:24 VIS not applicable for this client. nj1 Outcome: 14:51 Discharge ordered by . rt 15:24 Discharged to home via wheelchair, nj1 15:24 Condition: stable 15:24 Discharge instructions given to patient, Instructed on discharge instructions, follow up and referral plans. medication usage, Demonstrated understanding of instructions, follow-up care, medications, Prescriptions given X 1, 15:25 Patient left the ED. nj1 Signatures: Dispatcher [employer] EDMS Tyler Mtz MD MD rt Katherine Ojeda RN RN nj1 Mahi Luis PAS PAS ts1 Manasa Alexander, JOSEPH RN tm6
[2023-02-08 15:47] VITALS: BP 138/75; TEMP 97.7; O2SAT 100
== END 2023-02-08 15:25 | disposition home or self-care (01) ==
LOC: ER 12:21
DX: G89.29 Other chronic pain (principal); I10 Essential (primary) hypertension; J44.9 Chronic obstructive pulmonary disease, unspecified; F17.210 Nicotine dependence, cigarettes, uncomplicated; Z88.0 Allergy status to penicillin; Z86.73 Personal history of transient ischemic attack (TIA), and cerebral infarction without residual deficits; Z88.6 Allergy status to analgesic agent
CPT/HCPCS: 99283

== ENCOUNTER 2023-03-12 14:24 | Observation (INO) | payer OTHER ==
--- OUTSIDE RECORDS SUMMARY | 2023-03-12 14:42 | XMS REPORT | Continuity of Care Document ---
:[address] [facility] t Address [address] [facility] [address] [place] [address] Care Team Providers Name Role Phone Uli [...] (chronic nce 8-25 [facility] obstructiv obstructiv 00:00: Or dical e e 00 Center pulmonary pulmonary disease) disease) Altered Altered Disease Active [facility] mental mental 8-25 [facility] status status 00:00: Medical 00 Center Ptosis, Ptosis, Disease Active [facility] left left 8-25 [facility] 00:00: Medical 00 [place] S/P CABG x S/P CABG x Disease [...] embolism embolism 8-14 [facility] 00:00: Medical 00 [place] Left-sided Left-sided Disease Active [facility] muscle muscle 6-26 [facility] weakness weakness 00:00: Medica l 00 Center Muscle Muscle Disease Active [facility] cramps cramps 6-26 [facility] 00:00: Medical [place] Tension Tension Disease Active [facility] type [...] Thao kes ation ation 00:00: Medical 00 [place] Cellulitis Cellulitis Disease Active [facility] 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: 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 space of 00 [place] mouth mouth Mandibular Mandibular Disease Active [facility] abscess abscess 3-18 [facility] 00:00: Medical 00 [place] CVA CVA Diagnosis Active 2011-09-21 Mem oria Active 09-12 14:49:00 l 09/13/2011 06:00: Richard n 00 Rehabilita tion Dysarthria Dysarthri Problem Active 2011-10-03 Memoria a Active 08:09:33 l Problem [place] 10/03/2011 [facility] Weakness Weakness Problem Active 2011-10-03 Memoria Active 08:09:33 l Problem [place] 10/03/2011 [facility] CVA CVA Diagnosis Active 2011-09-21 Mem [...] 3-16 [facility] adverse 00:00: Medical reaction 00 [place] s aspirin aspirin Active Memoria l Miguel codeine codeine Active Memoria l [place] penicill penicill Active Memori a ins ins l Miguel Family History Family Member Diagnosis Comments Start Date Stop Date Source Natural mother Diabetes [facility] Social History Social Habit Start Date Stop Date Quantity Comments Source Sexual orientation [facility] History of tobacco Cigarette Smoker [facility] use [facility] Alcohol intake 2016-12-13 2016-12-13 Current [facility] 00:00:00 00:00:00 non-drinker of Medical Ce nter alcohol (finding) Cigarettes smoked 2016-11-26 2016-11-26 [facility] current (pack per 00:00:00 00:00:00 Medical Center day) - Reported Tobacco use and 2016-11-26 2016-11-26 Smokeless tobacco [facility] Mont[facility] exposure 00:00:00 00:00:00 non-user Medical Center Sex Assigned At [birth year] [facility] [address] Thao reyes 00:00:00 00:00:00 Medical Center Smoking Status Start Date Stop Date Source Smokes tobacco daily 2016-11-26 00:00:00 [facility] Medications Ordered Filled Start Stop [...] 00 by mouth Center nightly. melatonin 5 Yes 5mg QD Take [address] [facility] mg Tab 9-08 tablet (5 [facility] tablet 00:00: mg total) Medica l 00 by mouth Center nightly. pantoprazol Yes 40mg QD Take [address] [facility] e 9-08 tablet (40 [facility] (PROTONIX) 00:00: mg total) Me dical 40 MG 00 by mouth Center tablet daily. Soma Yes 1, PO, Memoria 6-16 Substituti l 23:36: on [place] 37 Allowed, TAB Soma Yes 1, PO, Memoria 6-16 Substituti l 23:36: on [place] 37 Allowed, TAB Soma 2011- Yes 1, PO, Memoria 6-16 Substituti l 23:36: on [place] 37 Allowed, TAB Soma Yes 1, PO, Memoria 6-16 Substituti l 23:36: on [place] 37 Allowed, TAB Soma Yes 1, PO, Memoria 6-16 Substituti l 23:36: on Miguel 37 Allowed, TAB Soma Yes 1, PO, Memoria 6-16 Substituti l 23:36: on [place] 37 Allowed, TAB Soma Yes 1, PO, Memoria 6-16 Substituti l 23:36: on Miguel 37 Allowed, TAB Soma Yes 1, PO, Memoria 6-16 Substituti l 23:36: on Miguel 37 Allowed, TAB Soma Yes 1, PO, Memoria 6-16 Substituti l 23:36: on Miguel 37 Allowed, TAB Soma 2011- Yes 1, PO, Memoria 6-16 Substituti l 23:36: on Miguel 37 Allowed, TAB OXYcodone Yes 1, PO, Memori a 6-16 PRN, as l 23:36: needed for [place] 23 pain, Substituti on Allowed, TAB OXYcodone Yes 1, PO, Memori a 6-16 PRN, as l 23:36: needed for Miguel 23 pain, Substituti on Allowed, TAB OXYcodone Yes 1, PO, Memori a 6-16 PRN, as l 23:36: needed for Miguel 23 pain, Substituti on Allowed, TAB OXYcodone 2012-0 Yes 1, PO, Memori a 6-16 PRN, as l 23:36: needed for [place] 23 pain, Substituti on Allowed, TAB OXYcodone 2012-0 Yes 1, PO, Memori a 6-16 PRN, as l 23:36: needed for [place] 23 pain, Substituti on Allowed, TAB OXYcodone 2012-0 Yes 1, PO, Memori a 6-16 PRN, as l 23:36: needed for Miguel 23 pain, Substituti on Allowed, TAB OXYcodone 2012-0 Yes 1, PO, Memori a 6-16 PRN, as l 23:36: needed for Miguel 23 pain, Substituti on Allowed, TAB OXYcodone 2012-0 Yes 1, PO, Memori a 6-16 PRN, as l 23:36: needed for [place] 23 pain, Substituti on Allowed, TAB OXYcodone 2012-0 Yes 1, PO, Memori a 6-16 PRN, as l 23:36: needed for Miguel 23 pain, Substituti on Allowed, TAB OXYcodone 2012-0 Yes 1, PO, Memori a 6-16 PRN, as l 23:36: needed for [place] 23 pain, Substituti on Allowed, TAB Ambien 5 mg 2012-0 Yes Meilani H 5 mg, 1 Memoria oral tablet 6-15 [place] tab, PO, l 19:27: Bedtime, [place] 59 30 tab, Substituti on Allowed, TAB Ambien 5 mg 2012-0 Yes Meilani H 5 mg, 1 Memoria oral tablet 6-15 [place] tab, PO, l 19:27: Bedtime, [place] 59 30 tab, Substituti on Allowed, TAB Ambien 5 mg 2012-0 Yes Meilani H 5 mg, 1 Memoria oral tablet 6-15 [place] tab, PO, l 19:27: Bedtime, Miguel 59 30 tab, Substituti on Allowed, TAB Ambien 5 mg 2011-0 Yes Meilani H 5 mg, 1 Memoria oral tablet 6-15 [place] tab, PO, l 19:27: Bedtime, [place] 59 30 tab, Substituti on Allowed, TAB Ambien 5 mg 2011-0 Yes Meilani H 5 mg, 1 Memoria oral tablet 6-15 [place] tab, PO, l 19:27: Bedtime, [place] 59 30 tab, Substituti on Allowed, TAB [...] 6-15 [place] tab, PO, l 19:27: Bedtime, [place] 59 30 tab, Substituti on Allowed, TAB [...] tab, PO, l tablet 19:27: Q12H, 60 [place] 52 tab, Substituti on Allowed, TAB Keppra 750 2011-0 Yes Meilani H 750 mg, 1 Memoria mg oral 6-15 [place] tab, PO, l tablet 19:27: Q12H, 60 [place] 52 tab, Substituti on Allowed, TAB Keppra 750 2011- Yes Meilani H 750 mg, 1 Memoria mg oral 6-15 [place] tab, PO, l tablet 19:27: Q12H, 60 Miguel 52 tab, Substituti on Allowed, TAB Keppra 750 2011- Yes Meilani H 750 mg, 1 Memoria mg oral 6-15 [place] tab, PO, l tablet 19:27: Q12H, 60 [place] 52 tab, Substituti on Allowed, TAB Keppra 750 2011- Yes Meilani H 750 mg, 1 Memoria mg oral 6-15 [place] tab, PO, l tablet 19:27: Q12H, 60 [place] 52 tab, Substituti on Allowed, TAB Keppra [...] tab, PO, l tablet 19:27: BID, 60 [place] 44 tab, Substituti on Allowed, TAB famotidine 2011-0 Yes Meilani H 20 mg, 1 Memoria 20 mg oral 6-15 [place] tab, PO, l tablet 19:27: BID, 60 [place] 44 tab, Substituti on Allowed, TAB famotidine [...] tab, PO, l tablet 19:27: BID, 60 [place] 44 tab, Substituti on Allowed, TAB famotidine [...] cap, PO, l capsule 19:27: BID, 60 [place] 40 cap, Substituti on Allowed, CAP Colace 100 2012-0 Yes Meilani H 100 mg, 1 Memoria mg oral 6-15 [place] cap, PO, l capsule 19:27: BID, 60 Miguel 40 cap, Substituti on Allowed, CAP Colace 100 2012-0 Yes Meilani H 100 mg, 1 Memoria mg oral 6-15 [place] cap, PO, l capsule 19:27: BID, 60 [place] 40 cap, Substituti on Allowed, CAP Colace 100 2012-0 Yes Meilani H 100 mg, 1 Memoria mg oral 6-15 [place] cap, PO, l capsule 19:27: BID, 60 [place] 40 cap, Substituti on Allowed, CAP Colace 100 2011-0 Yes Meilani H 100 mg, 1 Memoria mg oral 6-15 [place] cap, PO, l capsule 19:27: BID, 60 [place] 40 cap, Substituti on Allowed, CAP Colace [...] cap, PO, l capsule 19:27: BID, 60 [place] 40 cap, Substituti on Allowed, CAP Colace [...] cap, Substituti on Allowed, CAP Plavix 75 2011- Yes Meilani H 75 [...] Substituti on Allowed, Maintenanc e, TAB Percocet 2011- Yes Meilani H 1 tab, PO, Memoria 5/325 oral 6-15 [place] BID, PRN, l tablet 19:27: 60 tab, as Amira nn 30 needed for pain, Substituti on Allowed, Maintenanc e, TAB Percocet 2011- Yes Meilani H 1 tab, PO, Memoria [...] CR No Marcial De 6.25 mg, Memoria 6 West Route: PO, l 02:00: Bedtime, Miguel 00 Start date: 09/21/11 21:00:00, Duration: 30 day, Stop date: 10/20/11 21:00:00 Ambien 2012-0 No Marcial De 5 mg, 1 Me moria 6-09 West tab, l 02:00: Route: PO, Imguel 00 Drug form: TAB, Bedtime, Start date: 09/21/11 21:00:00, Duration: 30 day, Stop date: 10/20/11 21:00:00 Ambien CR 2012-0 No Marcial De 6.25 mg, Memoria 6-09 [place] Route: PO, l 02:00: Bedtime, [place] 00 Start date: 09/21/11 21:00:00, Duration: 30 day, Stop date: 10/20/11 21:00:00 Ambien 2012-0 No Marcial De 5 mg, 1 Me moria 6-09 [place] tab, l 02:00: Route: PO, [place] Drug form: TAB, Bedtime, Start date: 09/21/11 [...] 6-09 [place] tab, l 02:00: Route: PO, [place] 00 Drug form: TAB, Bedtime, Start date: 09/21/11 21:00:00, Duration: 30 day, Stop date: 10/20/11 21:00:00 Ambien CR 2012-0 No Marcial De 6.25 mg, Memoria 6-09 [place] Route: PO, l 02:00: Bedtime, [place] Start date: 09/21/11 21:00:00, Duration: 30 day, [...] 6-09 [place] Route: PO, l 02:00: Bedtime, [place] 00 Start date: 09/21/11 21:00:00, Duration: 30 day, Stop date: 10/20/11 21:00:00 Ambien 2012-0 No Marcial De 5 mg, 1 Me moria 6-09 [place] tab, l 02:00: Route: PO, Miguel 00 Drug form: TAB, Bedtime, Start date: 09/21/11 21:00:00, Duration: 30 day, Stop date: 10/20/11 21:00:00 Ambien CR 2012-0 No Marcial De 6.25 mg, Memoria 6-09 [place] Route: PO, l 02:00: Bedtime, [place] Start date: 09/21/11 21:00:00, Duration: 30 day, Stop date: 10/20/11 21:00:00 Ambien 2012-0 No Marcial De 5 mg, 1 Me moria 6-09 [place] tab, l 02:00: Route: PO, [place] 00 Drug form: TAB, Bedtime, Start date: [...] Stop date: 10/21/11 7:00:00 Percocet 2011-0 No Marcail De 1 tab, M emoria 5/325 oral [...] 6-02 Jef supp, l 03:49: [place] Route: [place], Richard n Drug form: SUPP, Bedtime, PRN Constipati on, Start date: 09/14/11 22:49:00, Duration: 30 day, Stop date: 10/14/11 22:48:00 zolpidem No Marcial De 5 mg, 1 Memoria -02 [place] tab, l 03:49: Route: PO, [place] 00 Drug form: TAB, Bedtime, PRN Insomnia, [...] 6-02 Jef supp, l 03:49: [place] Route: [place], Richard n 00 Drug form: SUPP, Bedtime, PRN Constipati on, Start date: 09/14/11 22:49:00, Duration: 30 day, Stop date: 10/14/11 22:48:00 zolpidem 2011-0 No Marcial De 5 mg, 1 Memoria 6-02 [place] tab, l 03:49: Route: PO, [place] Drug form: TAB, Bedtime, PRN Insomnia, Start [...] 6-02 Jef supp, l 03:49: [place] Route: [place], Richard n 00 Drug form: SUPP, Bedtime, [...] 09-14 Jef supp, l 03:49: [place] Route: [place], Richard n 00 Drug form: SUPP, Bedtime, PRN Constipati on, Start date: 09/14/11 22:49:00, Duration: 30 day, Stop date: 10/14/11 22:48:00 zolpidem No Marcial De 5 mg, 1 Memoria 09-14 [place] tab, l 03:49: Route: PO, [place] 00 Drug form: TAB, Bedtime, PRN Insomnia, [...] 0 No Jeff 30 mL, Memoria Magnesia 09-14 Jef Route: PO, l 03:49: [place] Drug Form: Richard n 00 SUSP, Daily, PRN Constipati on, Start date: 09/14/11 22:49:00, Duration: 30 day, Stop date: 10/14/11 22:48:00 bisacodyl 2011-0 No Jeff 10 mg, 1 Mem oria -02 Jef supp, l 03:49: [place] Route: [place], Richard n 00 Drug form: SUPP, Bedtime, [...] 30 day, Stop date: 10/14/11 22:48:00 bisacodyl 0 No Jeff 10 mg, 1 Mem oria -02 Jef supp, l 03:49: [place] Route: [place], Richard n 00 Drug form: SUPP, Bedtime, [...] No Jeff 3 mL, Memoria Flush 0.9% 6- Jef Route: l 03:49: [place] IVP, Drug [...] - Jef supp, l 03:49: [place] Route: [place], Richard n 00 Drug form: SUPP, Bedtime, [...] 6-02 Jef supp, l 03:49: [place] Route: [place], Richard n 00 Drug form: SUPP, Bedtime, PRN Constipati on, Start date: 09/14/11 22:49:00, Duration: 30 day, Stop date: 10/14/11 22:48:00 zolpidem 2011-0 No Marcial De 5 mg, 1 Memoria -02 [place] tab, l 03:49: Route: PO, [place] 00 Drug form: TAB, Bedtime, PRN Insomnia, [...] -02 Jef supp, l 03:49: [place] Route: [place], Richard n 00 Drug form: SUPP, Bedtime, PRN Constipati on, Start date: 09/14/11 22:49:00, Duration: 30 day, Stop date: 10/14/11 22:48:00 zolpidem 2011-0 No Marcial De 5 mg, 1 Memoria 6-02 [place] tab, l 03:49: Route: PO, [place] Drug form: TAB, Bedtime, PRN Insomnia, Start [...] 2011- No Jeff 30 mL, Memoria Magnesia - Jef Route: PO, l 03:49: [place] Drug Form: Richard n 00 SUSP, Daily, PRN Constipati on, Start date: 09/14/11 22:49:00, Duration: 30 day, Stop date: 10/14/11 22:48:00 bisacodyl 2011- No Jeff 10 mg, 1 Mem oria -02 Jef supp, l 03:49: [place] Route: [place], Richard n 00 Drug form: SUPP, Bedtime, PRN Constipati on, Start date: 09/14/11 22:49:00, Duration: 30 day, Stop date: 10/14/11 22:48:00 zolpidem 2011- No Marcial De 5 mg, 1 Memoria 6-02 [place] tab, l 03:49: Route: PO, [place] 00 Drug form: TAB, Bedtime, PRN Insomnia, [...] mg, 3 M emoria mg oral 6-02 Ejf tab, l tablet 02:00: [place] Route: PO, [...] tab, l 22:00: [place] Route: PORichard n Drug form: TAB, QPM, Start date: 09/14/11 17:00:00, Duration: 30 day, Stop date: 10/13/11 17:00:00 famotidine 2012-0 No Jeff 20 mg, 1 Me moria 20 mg oral 6-01 Jef tab, l tablet 22:00: [place] Route: PO, Gris graham Drug form: TAB, BID, Start date: [...] tab, l 22:00: [place] Route: PORichard n Drug form: TAB, QPM, Start date: 09/14/11 [...] -01 Jef tab, l 22:00: [place] Route: POGrisan [...] Jef tab, l 22:00: [place] Route: P[place] 00 Drug form: TAB, QPM, Start date: [...] Jeff 80 mg, 1 M emoria n 6- Jef tab, l 22:00: [place] Route: P[place] n Drug form: TAB, QPM, Start date: 09/14/11 [...] Jef mL, Route: l 20:00: [place] SUB-Q, [place] Drug form: INJ, Q24H, Start date: 09/14/11 15:00:00, Duration: 30 day, Stop date: 10/13/11 9:00:00 enoxaparin 2012-0 No Jeff 40 mg, 0.4 Memoria 6-01 Jef mL, Route: l 20:00: [place] SUB-Q, [place] 00 Drug form: INJ, Q24H, Start date: 09/14/11 15:00:00, Duration: 30 day, Stop date: 10/13/11 9:00:00 enoxaparin 2012-0 No Jeff 40 mg, 0.4 Memoria 6-01 Jef mL, Route: l 20:00: [place] SUB-Q, [place] 00 Drug form: INJ, Q24H, Start date: 09/14/11 15:00:00, Duration: 30 day, Stop date: 10/13/11 9:00:00 enoxaparin 2012-0 No Jeff 40 mg, 0.4 Memoria 6-01 Jef mL, Route: l 20:00: [place] SUB-Q, [place] Drug form: INJ, Q24H, Start date: 09/14/11 [...] Jef mL, Route: l 20:00: [place] SUB-Q, [place] 00 Drug form: INJ, Q24H, Start date: 09/14/11 15:00:00, Duration: 30 day, Stop date: 10/13/11 9:00:00 enoxaparin 2012-0 No Jeff 40 mg, 0.4 Memoria 6-01 Jef mL, Route: l 20:00: [place] SUB-Q, [place] Drug form: INJ, Q24H, Start date: 09/14/11 [...] 30 day, Stop date: 10/14/11 14:57:00 Percocet 2012-0 No Jeff 1 tab, Memori a 5/325 oral 09-13 Jef Route: PO, l tablet 19:58: [place] Drug Form: Herm graham 00 TAB, Q4H, PRN Pain, Start date: 09/14/11 14:58:00, Duration: 30 day, Stop date: 10/14/11 14:57:00 Vital Signs Vital Name Observation Time Observation Value Comments Source Systolic (mm Hg) 2011-10-01 10:34:00 Luan rial Miguel Respitory Rate 2011-10-01 10:34:00 Memori al Miguel Heart Rate 2011-10-01 10:34:00 [facility] [place] Temperature Oral (F) 2011-10-01 10:34:00 97.6 F [facility] [place] Diastolic (mm Hg) 2011-10-01 10:34:00 Mem orial [place] Diastolic (mm Hg) 2011-10-01 00:44:00 Mem orial [place] Respitory Rate 2011-10-01 00:44:00 Memori al Miguel Heart Rate 2011-10-01 00:44:00 [facility] [place] Systolic (mm Hg) 2011-10-01 00:44:00 Luan rial [place] Temperature Oral (F) 2011-10-01 00:44:00 98.1 F [facility] [place] Systolic (mm Hg) 2011-09-30 21:00:00 Luan rial [place] Diastolic (mm Hg) 2011-09-30 21:00:00 Mem orial [place] Heart Rate 2011-09-30 21:00:00 [facility] Miguel Respitory Rate 2011-09-30 21:00:00 Memori al [place] Temperature Oral (F) 2011-09-30 10:03:00 97.8 F [facility] Miguel Height 2011-09-15 03:49:00 172.72 cm [facility] [place] Weight 2011-09-15 03:49:00 [facility] Procedures This patient has no known procedures. Encounters Start End Encounter Admission Attending Care Care Encounter Source Date/Time Date/Time Type Type Clinicians Facility Department ID 2011-09-14 2011-10-01 MYRON BAKER [id number] Memoria 22:16:00 13:00:00 52 l Miguel 2011-09-14 2011-10-01 IR SAMUEL BAKER [id number] Memoria 22:16:00 13:00:00 52 l Miguel Results Test Description Test Time Test Comments Results Result Comments Source B-TYPE NATRIURETIC FACTOR (BNP) 2016-12-21 05:56:00 Test Item Value Reference Range Interpretation Comme nts B-TYPE NATRIURETIC PEPTIDE (BEAKER) (test code = 700) 136 pg/mL 0-100 H COMPREHENSIVE METABOLIC [id number] 05:53:00 Test Item Value Reference Range Interpretation [...] NOT APPLICABLE FOR DIALYSIS PATIEN TS. POCT-GLUCOSE [id number] 16:33:00 Test Item Value Reference Range Interpretation Comments POC-GLUCOSE METER 116 mg/dL 70-110 H TESTED AT [place] [address] ([facility]) (test code = [facility] 1538) [id number] POCT-GLUCOSE [id number] 11:08:00 Test Item Value Reference Range Interpretation Comments POC-GLUCOSE METER 133 mg/dL 70-110 H TESTED AT [place] [address] ([facility]) (test code = [facility] 1538) [id number] POCT-GLUCOSE [id number] 06:11:00 Test Item Value Reference Range Interpretation Comments POC-GLUCOSE METER 105 mg/dL 70-110 TESTED AT [place] [address] ([facility]) (test code = [facility] 1538) [id number] POCT-GLUCOSE [id number] 20:28:00 Test Item Value Reference Range Interpretation Comments POC-GLUCOSE METER 124 mg/dL 70-110 H TESTED AT [place] [address] ([facility]) (test code = [facility] 1538) [address]365 POCT-GLUCOSE [id number] 16:46:00 Test Item Value Reference Range Interpretation Comments POC-GLUCOSE METER 113 mg/dL 70-110 H TESTED AT [place] [address] ([facility]) (test code = [facility] 1538) [id number] POCT-GLUCOSE [id number] 11:46:00 Test Item Value Reference Range Interpretation Comments POC-GLUCOSE METER 113 mg/dL 70-110 H TESTED AT [place] [address] ([facility]) (test code = [facility] 1538) [id number] URINE [id number] 09:54:00 Test Item Value Reference Range Interpretation Comments CULTURE ([facility]) (test KLEBSIELLA A >100, 000 [...] S Sulfamethoxazole (test code = 47) POCT-GLUCOSE [id number] 06:46:00 Test Item Value Reference Range Interpretation Comments POC-GLUCOSE METER 111 mg/dL 70-110 H TESTED AT [place] [address] ([facility]) (test code = [facility] 1538) [id number] POCT-GLUCOSE [id number] 20:48:00 Test Item Value Reference Range Interpretation Comments POC-GLUCOSE METER 128 mg/dL 70-110 H TESTED AT [place] [address] ([facility]) (test code = [facility] 1538) [id number] POCT-GLUCOSE [id number] 16:00:00 Test Item Value Reference Range Interpretation Comments POC-GLUCOSE METER 127 mg/dL 70-110 H TESTED AT [place] [address] ([facility]) (test code = [facility] 1538) [id number] POCT-GLUCOSE [id number] 11:16:00 Test Item Value Reference Range Interpretation Comments POC-GLUCOSE METER 273 mg/dL 70-110 H TESTED AT [place] [address] ([facility]) (test code = [facility] 1538) [id number] COMPREHENSIVE METABOLIC [id number] 06:44:00 Test Item Value Reference Range Interpretation [...] I S NOT APPLICABLE FOR DIALYSIS PATIMADALYN CHAU. [id number] 06:27:00 Test Item Value Reference Range Interpretation Comments PARTIAL THROMBOPLASTIN TIME 38.5 seconds 22.5-36.0 H (BEAKER) (test code = 760) PROTHROMBIN [id number] 06:26:00 Test Item Value Reference Range Interpretation [...] mechanical heart valves.CBC W/PLT COUNT & AUTO [id number] 06:25:00 Test Item Value Reference Range Interpretation [...] PERCENT (BEAKER) (test code = 2801) POCT-GLUCOSE [id number] 06:22:00 Test Item Value Reference Range Interpretation Comments POC-GLUCOSE METER 131 mg/dL 70-[address] [facility] 6720 (BEAKER) (test code = [facility] 1538) [address] URINALYSIS W/ [id number] 20:35:00 Test Item Value Reference Range Interpretation [...] code Urine, Clean Catch = 2795) POCT-GLUCOSE [id number] 20:21:00 Test Item Value Reference Range Interpretation Comments POC-GLUCOSE METER 132 mg/dL 70-110 H TESTED AT [place] [address] (BEAKER) (test code = [facility] 1538) [id number] POCT-GLUCOSE [id number] 16:17:00 Test Item Value Reference Range Interpretation Comments POC-GLUCOSE METER 101 mg/dL 70-110 TESTED AT [place] [address] (BEAKER) (test code = [facility] 1538) [id number] POCT-GLUCOSE [id number] 13:35:00 Test Item Value Reference Range Interpretation Comments POC-GLUCOSE METER 143 mg/dL 70-110 H TESTED AT [place] [address] (BEAKER) ([facility] = [facility] 1538) [address] BASIC METABOLIC [id number] 06:31:00 Test Item Value Reference Range Interpretation [...] APPLICABLE FOR DIALYSIS PATIEN TS. BASIC METABOLIC [id number] 05:41:00 Test Item Value Reference Range Interpretation [...] 0-0 (BEAKER) (test code = 413) VITAMIN [id number] 06:04:00 Test Item Value Reference Range Interpretation Comments VITAMIN B12 (BEAKER) (test code = 619 pg/mL 213-816 774) [id number] 06:04:00 Test Item Value Reference Range Interpretation Comments FERRITIN (BEAKER) (test code = 361) 335 ng/mL 5-275 H Effective 03/02/2014: Reference Range ChangeNew: Male 5-275 Previous: Male 22- 322 Female 5-275 Female 10-291FOLATE, [id number] 06:04:00 Test Item Value Reference Range Interpretation Comments FOLATE (BEAKER) (test code = 362) 4.9 ng/mL >=7.0 L Effective 03/02/2014: Folate Reference Range ChangeNew: >=7.0 Previous: >=5.4BASIC METABOLIC [id number] 05:47:00 Test Item Value Reference Range Interpretation [...] (BEAKER) (test code = 413) BASIC METABOLIC [id number] 05:53:00 Test Item Value Reference Range Interpretation [...] WBC 0-0 (BEAKER) (test code = 413) [id number] 22:53:00 Test Item Value Reference Range Interpretation Comments ACTIVATED CLOTTING TIME 153 sec TEST ED AT [place] [address] ([facility]) (test code = T[facility] 441) [id number] 22:35:00 Test Item Value Reference Range Interpretation Comments ACTIVATED CLOTTING TIME 202 sec TEST ED AT [place] [address] ([facility]) (test code = TISHA [place]azares [place] [address]) [id number] 22:04:00 Test Item Value Reference Range Interpretation [...] (BEAKER) (test code = 413) BASIC METABOLIC [id number] 08:43:00 Test Item Value Reference Range Interpretation [...] (BEAKER) (test code = 413) BASIC METABOLIC [id number] 06:44:00 Test Item Value Reference Range Interpretation [...] PATIEN TS. CBC W/PLT COUNT & AUTO [id number] 21:33:00 Test Item Value Reference Range Interpretation [...] 0-1 PERCENT (BEAKER) (test code = 2801) [id number] 07:21:00 Test Item Value Reference Range Interpretation Comments PHOSPHORUS (BEAKER) (test code = 3.6 mg/dL 2.3-4.7 604) [id number] 07:21:00 Test Item Value Reference Range Interpretation Comments MAGNESIUM (BEAKER) (test code = 1.9 mg/dL 1.6-2.6 627) COMPREHENSIVE METABOLIC [id number] 07:21:00 Test Item Value Reference Range Interpretation [...] code = 413) PHENYTOIN LEVEL, TOTAL AND [id number] 01:14:00 Test Item Value Reference Range Interpretation Comments PHENYTOIN (DILANTIN) (BEAKER) 22.9 ug/mL 10.0-20.0 H (test code = 605) PHENYTOIN FREE (BEAKER) (test 3.51 mcg/ml 1.00-2.00 H code = 847) VALPROIC ACID LEVEL, [id number] 20:49:00 Test Item Value Reference Range Interpretation Comments VALPROIC ACID TOTAL (BEAKER) (test 33 ug/mL 50-100 L code = 924) Therapeutic range for some clinical conditions may be >100 ug/mLPOCT-GLUCOSE [id number] 17:10:00 Test Item Value Reference Range Interpretation Comments POC-GLUCOSE METER 108 mg/dL 70-[address] [facility] 6720 (BEAKER) (test code = [facility] 1538) [address]51 PHENYTOIN LEVEL, [id number] 12:29:00 Test Item Value Reference Range Interpretation Comments PHENYTOIN (DILANTIN) (BEAKER) 16.3 ug/mL 10.0-20.0 (test code = 605) CREATINE KINASE (CK), TOTAL AND [id number] 12:26:00 Test Item Value Reference Range Interpretation Comments CREATINE KINASE TOTAL (BEAKER) 47 U/L 29-200 (test code = 380) CREATINE KINASE-MB (BEAKER) (test 1.1 ng/mL 0.0-6.6 code = 750) CREATINE KINASE-MB INDEX (BEAKER) 2.3 % (test code = 395) Effective 03/02/2014: CK-MB Reference Range ChangeNew: 0.0-6.6 Previous: 0.0-4.9CK-MB Reference Range:<6.7 Normal6.7-10.0 Borderline>10.0 Abnormal TROPONIN [id number] 12:26:00 Test Item Value Reference Range Interpretation [...] failure, acidosis, acute neurological disease, and persistent tachyarrhythmia.[id number] 12:17:00 Test Item Value Reference Range Interpretation Comments MAGNESIUM (BEAKER) (test code = 2.0 mg/dL 1.6-2.6 627) COMPREHENSIVE METABOLIC [id number] 12:17:00 Test Item Value Reference Range Interpretation [...] PATIEN TS. CBC W/PLT COUNT & AUTO [id number] 11:55:00 Test Item Value Reference Range Interpretation [...] PERCENT (BEAKER) (test code = 2801) URINE [id number] 11:55:00 Test Item Value Reference Range Interpretation Comments CULTURE (BEAKER) (test code = 1095) No growth BLOOD GAS, [id number] 10:28:00 Test Item Value Reference Range Interpretation [...] (test code = 1819) 32.0 % POCT-GLUCOSE [id number] 09:53:00 Test Item Value Reference Range Interpretation Comments POC-GLUCOSE METER 184 mg/dL 70-[address] [facility] 6720 (BEAKER) (test code = TISHA Cazares [facility] 1538) [address] TROPONIN [id number] 22:44:00 Test Item Value Reference Range Interpretation [...] acidosis, acute neurological disease, and persistent tachyarrhythmia.TROPONIN [id number] 15:17:00 Test Item Value Reference Range Interpretation [...] MORPHOLOGY (BEAKER) (test code = Normal 762) [id number] 07:06:00 Test Item Value Reference Range Interpretation Comments PHOSPHORUS (BEAKER) (test code = 2.5 mg/dL 2.3-4.7 604) [id number] 07:06:00 Test Item Value Reference Range Interpretation Comments MAGNESIUM (BEAKER) (test code = 2.0 mg/dL 1.6-2.6 627) COMPREHENSIVE METABOLIC [id number] 07:06:00 Test Item Value Reference Range Interpretation [...] NOT APPLICABLE FOR DIALYSIS PATIEN TS. PROTHROMBIN [id number] 06:40:00 Test Item Value Reference Range Interpretation Comments PROTIME (BEAKER) (test code = 12.5 seconds 11.7-14.7 759) INR (BEAKER) (test code = 370) 1.0 <=5.9 RECOMMENDED COUMADIN/WARFARIN INR THERAPY RANGESSTANDARD DOSE: 2.0 - 3.0 Includes: PROPHYLAXIS for venous thrombosis, systemic embolization; TREATMENT for venous thrombosis and/or pulmonary embolus.HIGH RISK: Target INR is 2.5-3.5 for patients with mechanical heart valves.URINALYSIS W/ [id number] 06:18:00 Test Item Value Reference Range Interpretation [...] 516) SOURCE(BEAKER) (test code = Urine, Voided 7422) COMPREHENSIVE METABOLIC [id number] 05:47:00 Test Item Value Reference Range Interpretation [...] (BEAKER) (test code = 413) COMPREHENSIVE METABOLIC [id number] 10:08:00 Test Item Value Reference Range Interpretation [...] 0-0 (BEAKER) (test code = 413) POCT-GLUCOSE [id number] 12:08:00 Test Item Value Reference Range Interpretation Comments POC-GLUCOSE METER 111 mg/dL 70-[address] [facility] 6720 (BEAKER) (test code = TISHA [place] 1538) [address] POCT-GLUCOSE [id number] 08:40:00 Test Item Value Reference Range Interpretation Comments POC-GLUCOSE METER 184 mg/dL 70-[address] [facility] 67 ([facility]) (test code = TISHA [place] 1538) [address] [id number] 05:57:00 Test Item Value Reference Range Interpretation Comments MAGNESIUM (BEAKER) (test code = 2.1 mg/dL 1.6-2.6 627) BASIC METABOLIC [id number] 05:57:00 Test Item Value Reference Range Interpretation [...] 0-0 (BEAKER) (test code = 413) POCT-GLUCOSE [id number] 21:18:00 Test Item Value Reference Range Interpretation Comments POC-GLUCOSE METER 118 mg/dL 70-110 H TESTED AT [place] [address] ([facility]) (test code = TISHA Cazares [facility] 1538) [address] POCT-GLUCOSE [id number] 17:33:00 Test Item Value Reference Range Interpretation Comments POC-GLUCOSE METER 102 mg/dL 70-110 TESTED AT [place] [address] ([facility]) (test code = TISHA Cazares [facility] 1538) [address] POCT-GLUCOSE [id number] 12:06:00 Test Item Value Reference Range Interpretation Comments POC-GLUCOSE METER 188 mg/dL 70-110 H TESTED AT [place] [address] ([facility]) (test code = TISHA Cazares [facility] 1538) [address] POCT-GLUCOSE [id number] 08:31:00 Test Item Value Reference Range Interpretation Comments POC-GLUCOSE METER 109 mg/dL 70-[address] [facility] 6720 (BEAKER) (test code = TISHA [place] 1538) [address] [id number] 06:07:00 Test Item Value Reference Range Interpretation Comments MAGNESIUM (BEAKER) (test code = 2.0 mg/dL 1.6-2.6 627) BASIC METABOLIC [id number] 06:07:00 Test Item Value Reference Range Interpretation [...] S NOT APPLICABLE FOR DIALYSIS PATIEN TS. [id number] 05:40:00 Test Item Value Reference Range Interpretation [...] 0-0 (BEAKER) (test code = 413) POCT-GLUCOSE [id number] 21:01:00 Test Item Value Reference Range Interpretation Comments POC-GLUCOSE METER 118 mg/dL 70-110 H TESTED AT [place] [address] ([facility]) (test code = TISHA ARCE 1538) [address] POCT-GLUCOSE [id number] 18:51:00 Test Item Value Reference Range Interpretation Comments POC-GLUCOSE METER 117 mg/dL 70-110 H TESTED AT [place] [address] ([facility]) (test code = TISHA [place] 1538) [address] POCT-GLUCOSE [id number] 14:02:00 Test Item Value Reference Range Interpretation Comments POC-GLUCOSE METER 129 mg/dL 70-110 H TESTED AT [place] [address] ([facility]) (test code = TISHA [place] 1538) [address] [id number] 04:19:00 Test Item Value Reference Range Interpretation Comments MAGNESIUM (BEAKER) (test code = 1.8 mg/dL 1.6-2.6 627) BASIC METABOLIC [id number] 04:19:00 Test Item Value Reference Range Interpretation [...] S NOT APPLICABLE FOR DIALYSIS PATIEN TS. [id number] 04:13:00 Test Item Value Reference Range Interpretation [...] heart valves.Prior to initiating heparinPrior to initiating [id number] 04:13:00 Test Item Value Reference Range Interpretation Comments PARTIAL THROMBOPLASTIN TIME 42.4 seconds 22.5-36.0 H (BEAKER) (test code = 760) LACTIC ACID, ARTERIAL, WHOLE [id number] 04:09:00 Test Item Value Reference Range Interpretation [...] 0-0 (BEAKER) (test code = 413) CALCIUM, [id number] 03:54:00 Test Item Value Reference Range Interpretation Comments CALCIUM IONIZED (BEAKER) (test 1.14 mmol/L 1.12-1.27 code = 698) PH, BLOOD (BEAKER) (test code = 7.49 1810) BLOOD GAS, [id number] 03:54:00 Test Item Value Reference Range Interpretation [...] -2.0-3.0 (test code = 387) PATIENT TEMPERATURE (AKER) (test 37.6 C code = 1818) FIO2 (BEAKER) (test code = 1819) 36.0 % POCT-GLUCOSE [id number] 17:32:00 Test Item Value Reference Range Interpretation Comments POC-GLUCOSE METER 121 mg/dL 70-[address] [facility] 67 ([facility]) (test code = TISHA ARCE 1538) [address] PLATELET AGGREGATION: FUNCTION [id number] 14:46:00 Test Item Value Reference Range Interpretation Comments WEAK ADP 82 % 60-91 RESULT([facility]) (test code = 2135) PLATELET FUNCTION 60-100% indicates SCREEN INTERP ([facility]) normal platelet (test code = 2173) function [id number] Mari Phelan MD ([facility]) (test code = (electronic signature) 7559) PLATELET COUNT AGG 221 K/CU MM 150-450 (BEAKER) (test code = 2656) POCT-GLUCOSE [id number] 12:58:00 Test Item Value Reference Range Interpretation Comments POC-GLUCOSE METER 129 mg/dL 70-[address] [facility] 67 ([facility]) (test code = TISHA ARCE 1538) [address] HEMOGLOBIN [id number] 09:09:00 Test Item Value Reference Range Interpretation Comments HEMOGLOBIN A1C (BEAKER) (test code = 5.1 % 4.3-6.1 368) BLOOD GAS, [id number] 06:57:00 Test Item Value Reference Range Interpretation [...] (test code = 1819) 40.0 % POCT-GLUCOSE [id number] 06:01:00 Test Item Value Reference Range Interpretation Comments POC-GLUCOSE METER 154 mg/dL 70-[address] [facility] 6720 (BEAKER) (test code = TISHA [place] 1538) [address] [id number] 05:02:00 Test Item Value Reference Range Interpretation Comments MAGNESIUM (BEAKER) (test code = 2.0 mg/dL 1.6-2.6 627) BASIC METABOLIC [id number] 05:02:00 Test Item Value Reference Range Interpretation [...] S NOT APPLICABLE FOR DIALYSIS PATIEN TS. [id number] 04:56:00 Test Item Value Reference Range Interpretation [...] mechanical heart valves.CBC W/PLT COUNT & AUTO [id number] 04:54:00 Test Item Value Reference Range Interpretation [...] code = 2801) LACTIC ACID, ARTERIAL, WHOLE [id number] 04:39:00 Test Item Value Reference Range Interpretation Comments LACTATE BLOOD ARTERIAL (2) 1.2 mmol/L 0.5-2.2 (BEAKER) (test code = 2874) Effective 08/17/2015: Units/Reference Range ChangeNew: 0.5-2.2 mmol/L Previous: 5- 20 mg/dLCALCIUM, [id number] 04:11:00 Test Item Value Reference Range Interpretation Comments CALCIUM IONIZED (BEAKER) (test 1.17 mmol/L 1.12-1.27 code = 698) PH, BLOOD (BEAKER) (test code = 7.44 1810) BLOOD GAS, [id number] 04:11:00 Test Item Value Reference Range Interpretation [...] code = 1819) 40.0 % OXYGEN SATURATION, [id number] 04:09:00 Test Item Value Reference Range Interpretation Comments O2 SATURATION (MEASURED) (BEAKER) 80.7 % (test code = 1455) POCT-GLUCOSE [id number] 02:46:00 Test Item Value Reference Range Interpretation Comments POC-GLUCOSE METER 150 mg/dL 70-[address] [facility] 6720 (BEAKER) (test code = TISHA Cazares [place] 1538) [address] POCT-GLUCOSE [id number] 18:29:00 Test Item Value Reference Range Interpretation Comments POC-GLUCOSE METER 111 mg/dL 70-[address] [facility] 6720 (BEAKER) (test code = TISHA Cazares [place] 1538) [address] [id number] 16:27:00 Test Item Value Reference Range Interpretation Comments POTASSIUM (BEAKER) (test code = 4.2 meq/L 3.5-5.1 379) [id number] 16:27:00 Test Item Value Reference Range Interpretation Comments MAGNESIUM (BEAKER) (test code = 2.1 mg/dL 1.6-2.6 627) [id number] 16:27:00 Test Item Value Reference Range Interpretation Comments SODIUM (BEAKER) (test code = 381) 141 meq/L 136-145 BASIC METABOLIC [id number] 16:27:00 Test Item Value Reference Range Interpretation [...] DIALYSIS PATIEN TS. LACTIC ACID, ARTERIAL, WHOLE [id number] 16:23:00 Test Item Value Reference Range Interpretation Comments LACTATE BLOOD 1.8 mmol/L 0.5-2.2 Specimen sligh tly ARTERIAL (2) (BEAKER) hemoly zed (test code = 2874) Effective 08/17/2015: Units/Reference Range ChangeNew: 0.5-2.2 mmol/L Previous: 5- 20 mg/dLPT/[id number] 16:18:00 Test Item Value Reference Range Interpretation [...] for patients with mechanical heart valves.HEMOGLOBIN AND [id number] 16:10:00 Test Item Value Reference Range Interpretation [...] (BEAKER) (test code = 413) BLOOD GAS, [id number] 16:03:00 Test Item Value Reference Range Interpretation [...] (test code = 1819) 60.0 % CALCIUM, [id number] 16:03:00 Test Item Value Reference Range Interpretation Comments CALCIUM IONIZED (BEAKER) (test 1.18 mmol/L 1.12-1.27 code = 698) PH, BLOOD (BEAKER) (test code = 7.36 1810) OXYGEN SATURATION, [id number] 16:02:00 Test Item Value Reference Range Interpretation Comments O2 SATURATION (MEASURED) (BEAKER) 82.9 % (test code = 1455) [id number] 15:26:00 Test Item Value Reference Range Interpretation Comments ACTIVATED CLOTTING TIME 120 sec TEST ED AT [place] [address] ([facility]) (test code = TISHA ARCE 441) [address] [id number] 15:26:00 Test Item Value Reference Range Interpretation Comments ACTIVATED CLOTTING TIME 802 sec TEST ED AT [place] [address] ([facility]) (test code = TISHA Cazares [place] [address]) [address] [id number] 15:26:00 Test Item Value Reference Range Interpretation Comments ACTIVATED CLOTTING TIME 884 sec TEST ED AT [place] [address] ([facility]) (test code = TIHSA Cazares [place] [address]) [address] [id number] 15:26:00 Test Item Value Reference Range Interpretation Comments ACTIVATED CLOTTING TIME 621 sec TEST ED AT [place] [address] ([facility]) (test code = TISHA Cazares [place] [address]) [address] THROMBOELASTOGRAPH (TEG)[id number] 14:00:00 Test Item Value Reference Range Interpretation Comments TEG ACTIVATED CLOTTING TIME 8.7 minutes 4.0-7.0 H (AKER) (test code = 1407) TEG FIBRINOGEN ACTIVITY (BEAKER) 73.1 degrees 61.0-73.0 H (test code = 1408) TEG PLT. AGGREGATION (BEAKER) 70.6 MM 55.0-65.0 H (test code = 1409) TGH ACTIVATED CLOTTING TIME 8.7 minutes 4.0-7.0 H (AKER) (test code = 1411) TGH FIBRINOGEN ACTIVITY (BEAKER) 73.0 degrees 61.0-73.0 (test code = 1412) TGH PLT. AGGREGATION (BEAKER) 69.3 MM 55.0-65.0 H (test code = 1413) [id number] 13:28:00 Test Item Value Reference Range Interpretation Comments FIBRINOGEN LEVEL (BEAKER) (test 458 mg/dl 225-434 H code = 658) [id number] 13:28:00 Test Item Value Reference Range Interpretation Comments PARTIAL THROMBOPLASTIN TIME 39.7 seconds 22.5-36.0 H (BEAKER) (test code = 760) PROTHROMBIN [id number] 13:27:00 Test Item Value Reference Range Interpretation Comments PROTIME (BEAKER) (test code = 17.4 seconds 11.7-14.7 H 759) INR (BEAKER) (test code = 370) 1.4 <=5.9 RECOMMENDED COUMADIN/WARFARIN INR THERAPY RANGESSTANDARD DOSE: 2.0 - 3.0 Includes: PROPHYLAXIS for venous thrombosis, systemic embolization; TREATMENT for venous thrombosis and/or pulmonary embolus.HIGH RISK: Target INR is 2.5-3.5 for patients with mechanical heart valves.PLATELET [id number] 13:21:00 Test Item Value Reference Range Interpretation Comments PLATELET COUNT 151 K/CU MM 150-450 Discordant re sult (BEAKER) (test code compared to previous = 756) result; clinica l correlation req uired. CALCIUM, [id number] 13:06:00 Test Item Value Reference Range Interpretation Comments CALCIUM IONIZED (BEAKER) (test 1.07 mmol/L 1.12-1.27 L code = 698) PH, BLOOD (BEAKER) (test code = 7.31 1810) SODIUM NA-STAT [id number] 13:05:00 Test Item Value Reference Range Interpretation Comments SODIUM (BEAKER) (test code = 381) 135 meq/L 135-148 POTASSIUM-STAT [id number] 13:05:00 Test Item Value Reference Range Interpretation Comments POTASSIUM (BEAKER) (test code = 4.4 meq/L 3.6-5.5 379) BLOOD GAS, [id number] 13:05:00 Test Item Value Reference Range Interpretation [...] (test code = 1819) 67.0 % GLUCOSE-STAT [id number] 13:05:00 Test Item Value Reference Range Interpretation Comments GLUCOSE RANDOM (BEAKER) (test code 145 mg/dL 70-110 H = 652) HGB/HCT (H&H) - STAT [id number] 13:05:00 Test Item Value Reference Range Interpretation Comments HEMOGLOBIN (BEAKER) (test code = 10.2 g/dL 13.0-16.8 L 410) HEMATOCRIT (BEAKER) (test code = 30.0 % 40.0-50.0 L 411) BLOOD GAS, [id number] 12:26:00 Test Item Value Reference Range Interpretation [...] (test code = 1819) 65.0 % GLUCOSE-STAT [id number] 12:26:00 Test Item Value Reference Range Interpretation Comments GLUCOSE RANDOM (BEAKER) (test code 132 mg/dL 70-110 H = 652) HGB/HCT (H&H) - STAT [id number] 12:26:00 Test Item Value Reference Range Interpretation Comments HEMOGLOBIN (BEAKER) (test code = 10.6 g/dL 13.0-16.8 L 410) HEMATOCRIT (BEAKER) (test code = 31.0 % 40.0-50.0 L 411) SODIUM NA-STAT [id number] 12:25:00 Test Item Value Reference Range Interpretation Comments SODIUM (BEAKER) (test code = 381) 136 meq/L 135-148 POTASSIUM-STAT [id number] 12:25:00 Test Item Value Reference Range Interpretation Comments POTASSIUM (BEAKER) (test code = 4.4 meq/L 3.6-5.5 379) BLOOD GAS, [id number] 12:03:00 Test Item Value Reference Range Interpretation [...] (test code = 1819) 65.0 % POTASSIUM-STAT [id number] 12:00:00 Test Item Value Reference Range Interpretation Comments POTASSIUM (BEAKER) (test code = 4.7 meq/L 3.6-5.5 379) BLOOD GAS, [id number] 12:00:00 Test Item Value Reference Range Interpretation [...] (test code = 1819) 65.0 % GLUCOSE-STAT [id number] 12:00:00 Test Item Value Reference Range Interpretation Comments GLUCOSE RANDOM (BEAKER) (test code 140 mg/dL 70-110 H = 652) HGB/HCT (H&H) - STAT [id number] 12:00:00 Test Item Value Reference Range Interpretation Comments HEMOGLOBIN (BEAKER) (test code = 10.4 g/dL 13.0-16.8 L 410) HEMATOCRIT (BEAKER) (test code = 31.0 % 40.0-50.0 L 411) SODIUM NA-STAT [id number] 12:00:00 Test Item Value Reference Range Interpretation Comments SODIUM (BEAKER) (test code = 381) 131 meq/L 135-148 L PLATELET AGGREGATION: FUNCTION [id number] 11:08:00 Test Item Value Reference Range Interpretation Comments WEAK ADP 76 % 60-91 RESULT(BEAKER) (test code = 2135) PLATELET FUNCTION 60-100% indicates SCREEN INTERP (BEAKER) normal platelet (test code = 2173) function [id number] Mari Phelan MD (BEAKER) (test code = (electronic signature) 9179) PLATELET COUNT AGG 222 K/CU MM 150-450 (BEAKER) (test code = 2656) for patients on clopidogrel in past two weeksHEMOGLOBIN [id number] 08:57:00 Test Item Value Reference Range Interpretation Comments HEMOGLOBIN A1C (BEAKER) (test code = 5.0 % 4.3-6.1 368) CBC W/PLT COUNT & AUTO [id number] 05:54:00 Test Item Value Reference Range Interpretation [...] 0-1 PERCENT (BEAKER) (test code = 2801) [id number] 05:37:00 Test Item Value Reference Range Interpretation Comments PARTIAL THROMBOPLASTIN TIME 56.5 seconds 22.5-36.0 H (BEAKER) (test code = 760) BASIC METABOLIC [id number] 05:33:00 Test Item Value Reference Range Interpretation [...] NOT APPLICABLE FOR DIALYSIS PATIEN TS. PROTHROMBIN [id number] 05:33:00 Test Item Value Reference Range Interpretation Comments PROTIME (BEAKER) (test code = 13.3 seconds 11.7-14.7 759) INR (BEAKER) (test code = 370) 1.0 <=5.9 RECOMMENDED COUMADIN/WARFARIN INR THERAPY RANGESSTANDARD DOSE: 2.0 - 3.0 Includes: PROPHYLAXIS for venous thrombosis, systemic embolization; TREATMENT for venous thrombosis and/or pulmonary embolus.HIGH RISK: Target INR is 2.5-3.5 for patients with mechanical heart valves.[id number] 19:22:00 Test Item Value Reference Range Interpretation Comments PARTIAL THROMBOPLASTIN TIME 37.4 seconds 22.5-36.0 H (BEAKER) (test code = 760) PROTHROMBIN [id number] 19:21:00 Test Item Value Reference Range Interpretation Comments PROTIME (BEAKER) (test code = 12.8 seconds 11.7-14.7 759) INR (BEAKER) (test code = 370) 1.0 <=5.9 RECOMMENDED COUMADIN/WARFARIN INR THERAPY RANGESSTANDARD DOSE: 2.0 - 3.0 Includes: PROPHYLAXIS for venous thrombosis, systemic embolization; TREATMENT for venous thrombosis and/or pulmonary embolus.HIGH RISK: Target INR is 2.5-3.5 for patients with mechanical heart valves.[id number] 11:49:00 Test Item Value Reference Range Interpretation Comments PARTIAL THROMBOPLASTIN TIME 34.7 seconds 22.5-36.0 (BEAKER) (test code = 760) Prior to initiating heparinPLATELET [id number] 11:31:00 Test Item Value Reference Range Interpretation Comments PLATELET COUNT (BEAKER) (test 199 K/CU MM 150-450 code = 756) PLATELET AGGREGATION: FUNCTION [id number] 11:12:00 Test Item Value Reference Range Interpretation Comments WEAK ADP 90 % 60-91 RESULT(BEAKER) (test code = 2135) PLATELET FUNCTION 60-100% indicates SCREEN INTERP (BEAKER) normal platelet (test code = 2173) function [id number] Mari Phelan MD (BEAKER) (test code = (electronic signature) 9002) PLATELET COUNT AGG 200 K/CU MM 150-450 ([facility]) (test code = 2656) HEMOGLOBIN [id number] 08:38:00 Test Item Value Reference Range Interpretation Comments HEMOGLOBIN A1C (MARLEEN) (test code = 5.5 % 4.3-6.1 368) TROPONIN [id number] 08:35:00 Test Item Value Reference Range Interpretation [...] Reference Range Interpretation Comments CREATINE KINASE TOTAL ([facility]) 39 U/L 29-200 (test code = 380) CREATINE KINASE-MB ([facility]) (test 1.6 ng/mL 0.0-6.6 code = 750) CREATINE KINASE-MB INDEX ([facility]) 4.1 % (test code = 395) Effective 03/02/2014: CK-MB Reference Range ChangeNew: 0.0-6.6 Previous: 0.0-4.9CK-MB Reference Range:<6.7 Normal6.7-10.0 Borderline>10.0 Abnormal POCT-GLUCOSE [id number] 08:23:00 Test Item Value Reference Range Interpretation Comments POC-GLUCOSE METER 104 mg/dL 70-[address] [facility] 6720 ([facility]) (test code = AN[place]ONYERIK [place] 1538) [address] PROTHROMBIN [id number] 04:32:00 Test Item Value Reference Range Interpretation Comments PROTIME (MARLEEN) (test code = 13.5 seconds 11.7-14.7 759) INR (BEAKER) (test code = 370) 1.0 <=5.9 RECOMMENDED COUMADIN/WARFARIN INR THERAPY RANGESSTANDARD DOSE: 2.0 - 3.0 Includes: PROPHYLAXIS for venous thrombosis, systemic embolization; TREATMENT for venous thrombosis and/or pulmonary embolus.HIGH RISK: Target INR is 2.5-3.5 for patients with mechanical heart valves.[id number] 02:13:00 Test Item Value Reference Range Interpretation Comments PHOSPHORUS (BEAKER) (test code = 3.9 mg/dL 2.3-4.7 604) [id number] 02:13:00 Test Item Value Reference Range Interpretation Comments MAGNESIUM (BEAKER) (test code = 2.1 mg/dL 1.6-2.6 627) BASIC METABOLIC [id number] 02:13:00 Test Item Value Reference Range Interpretation [...] PATIEN TS. CBC W/PLT COUNT & AUTO [id number] 01:44:00 Test Item Value Reference Range Interpretation [...] 0-1 PERCENT (BEAKER) (test code = 2801) [id number] 01:31:00 Test Item Value Reference Range Interpretation [...] 2.5-3.5 for patients with mechanical heart valves.TROPONIN [id number] 00:46:00 Test Item Value Reference Range Interpretation [...] Previous: 0.0-4.9CK-MB Reference Range:<6.7 Normal6.7-10.0 Borderline>10.0 Abnormal [id number] 06:58:00 Test Item Value Reference Range Interpretation Comments PHOSPHORUS (BEAKER) (test code = 3.7 mg/dL 2.3-4.7 604) [id number] 06:58:00 Test Item Value Reference Range Interpretation Comments MAGNESIUM (BEAKER) (test code = 1.9 mg/dL 1.6-2.6 627) BASIC METABOLIC [id number] 06:58:00 Test Item Value Reference Range Interpretation [...] S NOT APPLICABLE FOR DIALYSIS PATIEN TS. [id number] 06:36:00 Test Item Value Reference Range Interpretation Comments PHOSPHORUS (BEAKER) (test code = 4.1 mg/dL 2.3-4.7 604) [id number] 06:36:00 Test Item Value Reference Range Interpretation Comments MAGNESIUM (BEAKER) (test code = 2.0 mg/dL 1.6-2.6 627) BASIC METABOLIC [id number] 06:36:00 Test Item Value Reference Range Interpretation [...] S NOT APPLICABLE FOR DIALYSIS PATIEN TS. [id number] 15:50:00 Test Item Value Reference Range Interpretation Comments RPR SCREEN (BEAKER) (test code = Nonreactive Nonreactive 420) HEMOGLOBIN [id number] 10:29:00 Test Item Value Reference Range Interpretation Comments HEMOGLOBIN A1C (BEAKER) (test code = 5.4 % 4.3-6.1 368) VITAMIN B12 AND [id number] 09:21:00 Test Item Value Reference Range Interpretation Comments VITAMIN B12 (BEAKER) (test code = 335 pg/mL 213-816 774) FOLATE (BEAKER) (test code = 362) 36.6 ng/mL >=7.0 Effective 03/02/2014: Folate Reference Range ChangeNew: >=7.0 Previous: >=5.4CBC W/PLT COUNT & AUTO [id number] 08:15:00 Test Item Value Reference Range Interpretation [...] (test code = 417) 0.00TSH/FREE T4 IF [id number] 08:00:00 Test Item Value Reference Range Interpretation Comments THYROID STIMULATING HORMONE 1.39 uIU/mL 0.35-4.94 (BEAKER) (test code = 772) BASIC METABOLIC [id number] 07:26:00 Test Item Value Reference Range Interpretation [...] TO CALCU LATE m ESTIMATED GFR. LIPID [id number] 07:26:00 Test Item Value Reference Range Interpretation [...] (test code = 3.8 mg/dL 2.3-4.7 604) [id number] 07:25:00 Test Item Value Reference Range Interpretation Comments MAGNESIUM (BEAKER) (test code = 2.0 mg/dL 1.6-2.6 627) URINALYSIS W/ [id number] 19:16:00 Test Item Value Reference Range Interpretation [...] 520) SOURCE(BEAKER) (test code = Urine, Voided 7187) BLOOD [id number] 11:00:00 Test Item Value Reference Range Interpretation Comments CULTURE (BEAKER) (test No growth in 5 days code = 1095) BLOOD [id number] 11:00:00 Test Item Value Reference Range Interpretation Comments CULTURE (BEAKER) (test No growth in 5 days code = 1095) BASIC METABOLIC [id number] 05:33:00 Test Item Value Reference Range Interpretation [...] ESTIMATED GFR. CBC W/PLT COUNT & AUTO [id number] 05:04:00 Test Item Value Reference Range Interpretation [...] 0.00-0.20 (test code = 417) 0.00VANCOMYCIN LEVEL, [id number] 21:36:00 Test Item Value Reference Range Interpretation Comments VANCOMYCIN TROUGH (BEAKER) (test 9.5 ug/mL 10.0-20.0 L code = 522) Please draw prior to 4th vancomycin doseVITAMIN B12 AND [id number] 04:33:00 Test Item Value Reference Range Interpretation Comments VITAMIN B12 (BEAKER) (test code = 599 pg/mL 213-816 774) FOLATE (BEAKER) (test code = 362) 7.7 ng/mL >=7.0 Effective 03/02/2014: Folate Reference Range ChangeNew: >=7.0 Previous: >=5.4HEPATIC FUNCTION [id number] 03:58:00 Test Item Value Reference Range Interpretation [...] = 12 U/L 6-55 347) BASIC METABOLIC [id number] 03:58:00 Test Item Value Reference Range Interpretation [...] ESTIMATED GFR. CBC W/PLT COUNT & AUTO [id number] 03:45:00 Test Item Value Reference Range Interpretation [...] K/ L 0.00-0.20 (test code = 417) 0.59IDAV6992-47-72 03:18:00 Test Item Value Reference Range Interpretation Comments PARTIAL THROMBOPLASTIN TIME 42.6 seconds 22.5-36.0 H (BEAKER) (test code = 760) PROTHROMBIN TIME/[id number] 03:17:00 Test Item Value Reference Range Interpretation Comments PROTIME (BEAKER) (test code = 13.0 seconds 11.7-14.7 759) INR (BEAKER) (test code = 370) 1.0 <=5.9 RECOMMENDED COUMADIN/WARFARIN INR THERAPY RANGESSTANDARD DOSE: 2.0 - 3.0 Includes: PROPHYLAXIS for venous thrombosis, systemic embolization; TREATMENT for venous thrombosis and/or pulmonary embolus.HIGH RISK: Target INR is 2.5-3.5 for patients with mechanical heart valves.BASIC METABOLIC [id number] 02:48:00 Test Item Value Reference Range Interpretation [...] ESTIMATED GFR. CBC W/PLT COUNT & AUTO [id number] 02:47:00 Test Item Value Reference Range Interpretation [...] K/ L 0.00-0.20 (test code = 417) 0.08ROAYCCHPC2964-43-76 09:18:00 Test Item Value Reference Range Interpretation Comments BUN (test code = BUN) 11 7-22 N [facility]KpgkkcoBWOGJUGIL9288-83-82 09:18:00 Test Item Value Reference Range Interpretation Comments Glucose Lvl (test code = Glucose Lvl) 107 70-99 H [facility] HospitalVridhfhAUBWZDTKK6314-27-92 09:18:00 Test Item Value Reference Range Interpretation Comments Creatinine Lvl (test code = Creatinine 0.7 0.5-1.4 N Lvl) [facility] CenterBhnapvbHYPWGNHRBG2007-53-38 09:18:00 Test Item Value Reference Range Interpretation Comments RDW (test code = RDW) 13.6 11.5-14.5 N [facility] CenterGgrgimgSFPRKTPYPH1344-28-32 09:18:00 Test Item Value Reference Range Interpretation Comments MCV (test code = MCV) 98.9 80.0-94.0 H [facility] CenterUiyciaeEABFFHHJNR2036-32-35 09:18:00 Test Item Value Reference Range Interpretation Comments Hct (test code = Hct) 38.8 42.0-54.0 L [facility] CenterCdkdzlvZQBTSFAIHX5727-66-01 09:18:00 Test Item Value Reference Range Interpretation Comments MPV (test code = MPV) 9.7 7.4-10.4 N [facility] CenterQajljbmHRHWLLZTVT9636-01-05 09:18:00 Test Item Value Reference Range Interpretation Comments Platelet (test code = Platelet) 188 133-450 N [facility] CenterGahlckkERIAGSFUVC5908-58-32 09:18:00 Test Item Value Reference Range Interpretation Comments MCHC (test code = MCHC) 34.5 32.0-36.0 N [facility] CenterVdicvddMWPYXEXWNR2378-42-54 09:18:00 Test Item Value Reference Range Interpretation Comments MCH (test code = MCH) 34.2 pg 27.0-31.0 H [facility] CenterVghhdplOHSDALLXJN3659-06-70 09:18:00 Test Item Value Reference Range Interpretation Comments Hgb (test code = Hgb) 13.4 14.0-18.0 L [facility] CenterKlrbgtkXJXGHDEJQT1389-61-47 09:18:00 Test Item Value Reference Range Interpretation Comments WBC (test code = WBC) 5.8 3.7-10.4 N [facility] CenterAaufmxiRXNFQMPQVB5258-63-18 09:18:00 Test Item Value Reference Range Interpretation Comments RBC (test code = RBC) 3.92 4.70-6.10 L [facility] CenterWrnfzjaEQNGADTVTF8273-36-31 09:18:00 Test Item Value Reference Range Interpretation Comments Monocytes # (test code = Monocytes #) 0.8 <=0.8 N [facility] CenterGqluhbaSADQYPWBRY2648-34-70 09:18:00 Test Item Value Reference Range Interpretation Comments Lymphocytes # (test code = Lymphocytes 2.4 1.0-5.5 N #) [facility] CenterNzgjjvmKJAPHLNZYM5614-84-42 09:18:00 Test Item Value Reference Range Interpretation Comments Basophils # (test code = Basophils #) 0.0 <=0.2 N [facility] CenterXugftmfOOEKAKXSRO0581-18-47 09:18:00 Test Item Value Reference Range Interpretation Comments Eosinophils # (test code = Eosinophils 0.2 <=0.5 N #) [facility] CenterAgugxwrUOCJREFWUK0826-17-34 09:18:00 Test Item Value Reference Range Interpretation Comments Lymphocytes (test code = Lymphocytes) 41.3 20.0-40.0 H [facility] CenterQhluyfoTLQRINYDRQ0104-19-10 09:18:00 Test Item Value Reference Range Interpretation Comments Segs (test code = Segs) 41.0 45.0-75.0 L [facility] CenterFupylsvUVECHWQTCV4849-23-40 09:18:00 Test Item Value Reference Range Interpretation Comments Eosinophils (test code = Eosinophils) 3.9 <=4.0 N [facility] CenterYzwlxxjPNFZACMOKN8063-23-76 09:18:00 Test Item Value Reference Range Interpretation Comments Segs-Bands # (test code = Segs-Bands #) 2.4 1.5-8.1 N [facility] CenterSitjrcbOLVTDVBNXG3581-72-09 09:18:00 Test Item Value Reference Range Interpretation Comments Basophils (test code = Basophils) 0.3 <=1.0 N [facility] CenterExdvtrwNCGMTLOYMD8546-12-24 09:18:00 Test Item Value Reference Range Interpretation Comments Monocytes (test code = Monocytes) 13.5 2.0-12.0 H [facility] HospitalZwkrgidRJAGAPGAS4179-83-50 09:18:00 Test Item Value Reference Range Interpretation Comments AGAP (test code = AGAP) 14.0 10.0-20.0 N [facility] HospitalZvqgkazRHDSJEVNY8683-86-27 09:18:00 Test Item Value Reference Range Interpretation Comments Chloride Lvl (test code = Chloride Lvl) 110 95-109 H [facility] HospitalOsleenoEYWZHAGNK7772-02-91 09:18:00 Test Item Value Reference Range Interpretation Comments CO2 (test code = CO2) 26 24-32 N [facility] HospitalOqeqthuYYZAXNBIE2017-80-07 09:18:00 Test Item Value Reference Range Interpretation Comments Calcium Lvl (test code = Calcium Lvl) 9.1 8.5-10.5 N [facility] HospitalBawygafLXWWDLYUJ6670-96-99 09:18:00 Test Item Value Reference Range Interpretation Comments Sodium Lvl (test code = Sodium Lvl) 146 135-145 H [facility] HospitalDfhojuaDKCPSUIDT8864-88-29 09:18:00 Test Item Value Reference Range Interpretation Comments Potassium Lvl (test code = Potassium 4.0 3.5-5.1 N Lvl) [facility] HospitalRtyfutjSAOSPNHKN0481-53-83 09:18:00 Test Item Value Reference Range Interpretation Comments BUN (test code = BUN) 11 7-22 N [facility] HospitalMpshlkcIKIBALYVT7904-16-49 09:18:00 Test Item Value Reference Range Interpretation Comments Glucose Lvl (test code = Glucose Lvl) 107 70-99 H [facility] HospitalGilutdxAJABPQGOV6781-75-03 09:18:00 Test Item Value Reference Range Interpretation Comments Creatinine Lvl (test code = Creatinine 0.7 0.5-1.4 N Lvl) [facility] CenterIwddfxpYNVOQFKRWA8118-01-45 09:18:00 Test Item Value Reference Range Interpretation Comments RDW (test code = RDW) 13.6 11.5-14.5 N [facility] CenterBlkckbmUSJKKRKUHQ1810-99-39 09:18:00 Test Item Value Reference Range Interpretation Comments MCV (test code = MCV) 98.9 80.0-94.0 H [facility] CenterDbuertmFRGUXFOPCL2046-12-09 09:18:00 Test Item Value Reference Range Interpretation Comments Hct (test code = Hct) 38.8 42.0-54.0 L [facility] CenterVjbpbqeJNNDDBBMQR3934-14-76 09:18:00 Test Item Value Reference Range Interpretation Comments MPV (test code = MPV) 9.7 7.4-10.4 N [facility] CenterYkpkumuGTZGCRLBXK9559-83-30 09:18:00 Test Item Value Reference Range Interpretation Comments Platelet (test code = Platelet) 188 133-450 N [facility] CenterZswbryyQQIXINBJKJ5205-23-33 09:18:00 Test Item Value Reference Range Interpretation Comments MCHC (test code = MCHC) 34.5 32.0-36.0 N [facility] CenterGjkhibxEJGWQNHRXB7881-02-74 09:18:00 Test Item Value Reference Range Interpretation Comments MCH (test code = MCH) 34.2 pg 27.0-31.0 H [facility] CenterWrvywbhPJEBKLNWJW2078-22-20 09:18:00 Test Item Value Reference Range Interpretation Comments Hgb (test code = Hgb) 13.4 14.0-18.0 L [facility] CenterIzqbbwcUYSBAQTJVU9993-33-25 09:18:00 Test Item Value Reference Range Interpretation Comments WBC (test code = WBC) 5.8 3.7-10.4 N [facility] CenterYgwqdkaSCRKDNIJLU6716-16-70 09:18:00 Test Item Value Reference Range Interpretation Comments RBC (test code = RBC) 3.92 4.70-6.10 L [facility] CenterKrabbggQPICVHHTLY9947-61-07 09:18:00 Test Item Value Reference Range Interpretation Comments Monocytes # (test code = Monocytes #) 0.8 <=0.8 N [facility] CenterAajzptvEWKGFTHKJE8786-72-11 09:18:00 Test Item Value Reference Range Interpretation Comments Lymphocytes # (test code = Lymphocytes 2.4 1.0-5.5 N #) [facility] CenterJoqzoecOOWVFHYSHC8927-13-24 09:18:00 Test Item Value Reference Range Interpretation Comments Basophils # (test code = Basophils #) 0.0 <=0.2 N [facility] CenterLdgjdsdPZRGYHNHCE8530-36-14 09:18:00 Test Item Value Reference Range Interpretation Comments Eosinophils # (test code = Eosinophils 0.2 <=0.5 N #) [facility] CenterMozanceLVFDJCKROP1111-22-73 09:18:00 Test Item Value Reference Range Interpretation Comments Lymphocytes (test code = Lymphocytes) 41.3 20.0-40.0 H [facility] CenterDifwnelWUGXNUTOHY4379-77-21 09:18:00 Test Item Value Reference Range Interpretation Comments Segs (test code = Segs) 41.0 45.0-75.0 L [facility] CenterHdswavhULHLEXLXTB0889-89-80 09:18:00 Test Item Value Reference Range Interpretation Comments Eosinophils (test code = Eosinophils) 3.9 <=4.0 N [facility] CenterKztljjsYCZBEWDFFI0629-77-89 09:18:00 Test Item Value Reference Range Interpretation Comments Segs-Bands # (test code = Segs-Bands #) 2.4 1.5-8.1 N [place] 812882-06-16 09:18:00 Test Item Value Reference Range Interpretation Comments Basophils (test code = Basophils) 0.3 <=1.0 N [facility] CenterJdgfbinAVSOITEWPW4160-92-97 09:18:00 Test Item Value Reference Range Interpretation Comments Monocytes (test code = Monocytes) 13.5 2.0-12.0 H [facility] HospitalJwwbouwBWYSVMOEF7879-13-31 09:18:00 Test Item Value Reference Range Interpretation Comments AGAP (test code = AGAP) 14.0 10.0-20.0 N [facility] HospitalAavqmebITIOSENWS0280-23-92 09:18:00 Test Item Value Reference Range Interpretation Comments Chloride Lvl (test code = Chloride Lvl) 110 95-109 H [facility] HospitalUrfjepcNANSEEDEE5117-86-19 09:18:00 Test Item Value Reference Range Interpretation Comments CO2 (test code = CO2) 26 24-32 N [facility] HospitalIwmgieyNCWJCLAGI1681-70-50 09:18:00 Test Item Value Reference Range Interpretation Comments Calcium Lvl (test code = Calcium Lvl) 9.1 8.5-10.5 N [facility] HospitalAkalfatIUHKRCIUB5325-19-75 09:18:00 Test Item Value Reference Range Interpretation Comments AGAP (test code = AGAP) 14.0 10.0-20.0 N [facility] HospitalMzldmiiOBZHGMYUC1633-96-07 09:18:00 Test Item Value Reference Range Interpretation Comments Chloride Lvl (test code = Chloride Lvl) 110 95-109 H [facility] HospitalAtdkguuBZBMKHXRB3274-68-81 09:18:00 Test Item Value Reference Range Interpretation Comments CO2 (test code = CO2) 26 24-32 N [facility] HospitalSqztuhwEQRTHCMDY5250-65-18 09:18:00 Test Item Value Reference Range Interpretation Comments Calcium Lvl (test code = Calcium Lvl) 9.1 8.5-10.5 N [facility] HospitalAgeminwAVESNVQLZ6003-81-71 09:18:00 Test Item Value Reference Range Interpretation Comments Sodium Lvl (test code = Sodium Lvl) 146 135-145 H [facility] HospitalVmgkdyiASVSIZKWY8050-49-51 09:18:00 Test Item Value Reference Range Interpretation Comments Potassium Lvl (test code = Potassium 4.0 3.5-5.1 N Lvl) [facility] HospitalXawjdyrPSYAKCYXF0996-54-87 09:18:00 Test Item Value Reference Range Interpretation Comments BUN (test code = BUN) 11 7-22 N [facility] HospitalMusehebZOFDYUZRX6970-23-65 09:18:00 Test Item Value Reference Range Interpretation Comments Glucose Lvl (test code = Glucose Lvl) 107 70-99 H [facility] HospitalJbxwproQXLMYHWNO1279-80-57 09:18:00 Test Item Value Reference Range Interpretation Comments Creatinine Lvl (test code = Creatinine 0.7 0.5-1.4 N Lvl) [facility] CenterGuizsorYDWUXPBPFL6161-33-86 09:18:00 Test Item Value Reference Range Interpretation Comments RDW (test code = RDW) 13.6 11.5-14.5 N [facility] CenterEyjkgayYLYPGMAQAJ4130-92-71 09:18:00 Test Item Value Reference Range Interpretation Comments MCV (test code = MCV) 98.9 80.0-94.0 H [facility] CenterIypbzgqYITKUPNKAU2687-45-10 09:18:00 Test Item Value Reference Range Interpretation Comments Hct (test code = Hct) 38.8 42.0-54.0 L [facility] CenterRpfgckqEZMVVNVZMM5210-86-22 09:18:00 Test Item Value Reference Range Interpretation Comments MPV (test code = MPV) 9.7 7.4-10.4 N [facility] CenterNwzmnqxBEPPXXQPVU4038-90-74 09:18:00 Test Item Value Reference Range Interpretation Comments Platelet (test code = Platelet) 188 133-450 N [facility] CenterAqxaaneEXAINYDRBU5133-54-66 09:18:00 Test Item Value Reference Range Interpretation Comments MCHC (test code = MCHC) 34.5 32.0-36.0 N [facility] CenterDpfdrkrFULBIWMLSR6666-79-62 09:18:00 Test Item Value Reference Range Interpretation Comments MCH (test code = MCH) 34.2 pg 27.0-31.0 H [facility] CenterPvqjorjTPSIJEPGNK2255-53-28 09:18:00 Test Item Value Reference Range Interpretation Comments Hgb (test code = Hgb) 13.4 14.0-18.0 L [facility] CenterNwwaoumUEVTOWWQBC1010-94-26 09:18:00 Test Item Value Reference Range Interpretation Comments WBC (test code = WBC) 5.8 3.7-10.4 N [facility] HospitalRpinruqATKTYHHYR3867-24-62 09:18:00 Test Item Value Reference Range Interpretation Comments Sodium Lvl (test code = Sodium Lvl) 146 135-145 H [facility] CenterAuppdbiEDKKCRVUEO9267-75-53 09:18:00 Test Item Value Reference Range Interpretation Comments RBC (test code = RBC) 3.92 4.70-6.10 L [facility] CenterAwkbsfyWDRHWIANEV6205-69-01 09:18:00 Test Item Value Reference Range Interpretation Comments Monocytes # (test code = Monocytes #) 0.8 <=0.8 N [facility] CenterWiqqgalLJQJREMKNT1180-41-55 09:18:00 Test Item Value Reference Range Interpretation Comments Lymphocytes # (test code = Lymphocytes 2.4 1.0-5.5 N #) [facility] CenterJzulmytWLWZBFISEJ0031-56-49 09:18:00 Test Item Value Reference Range Interpretation Comments Basophils # (test code = Basophils #) 0.0 <=0.2 N [facility] CenterXwumkzdIYMJDHKYOH7680-37-51 09:18:00 Test Item Value Reference Range Interpretation Comments Eosinophils # (test code = Eosinophils 0.2 <=0.5 N #) [facility] CenterRqvmbzuMDQVHSJXPX5379-33-53 09:18:00 Test Item Value Reference Range Interpretation Comments Lymphocytes (test code = Lymphocytes) 41.3 20.0-40.0 H [facility] CenterMbffazlGRTKYODJJV3702-58-19 09:18:00 Test Item Value Reference Range Interpretation Comments Segs (test code = Segs) 41.0 45.0-75.0 L [facility] CenterEwlxubvUIXKPYGSBR5295-27-76 09:18:00 Test Item Value Reference Range Interpretation Comments Eosinophils (test code = Eosinophils) 3.9 <=4.0 N [facility] CenterInmtapsSWHLMLXZNC5405-77-18 09:18:00 Test Item Value Reference Range Interpretation Comments Segs-Bands # (test code = Segs-Bands #) 2.4 1.5-8.1 N [facility] CenterQidyomhIVAWIFLTUS2381-27-63 09:18:00 Test Item Value Reference Range Interpretation Comments Basophils (test code = Basophils) 0.3 <=1.0 N [facility] HospitalJudegrjZFCRWWEGU4464-99-42 09:18:00 Test Item Value Reference Range Interpretation Comments Potassium Lvl (test code = Potassium 4.0 3.5-5.1 N Lvl) [facility] CenterPpbciirXZJVQBJAUB4314-28-81 09:18:00 Test Item Value Reference Range Interpretation Comments Monocytes (test code = Monocytes) 13.5 2.0-12.0 H [facility] HospitalYkmdbhrKKDYPEAHY4777-01-25 09:18:00 Test Item Value Reference Range Interpretation Comments BUN (test code = BUN) 11 7-22 N [facility] HospitalRjxbmmlEYAPNZQUE6033-84-36 09:18:00 Test Item Value Reference Range Interpretation Comments Glucose Lvl (test code = Glucose Lvl) 107 70-99 H [facility] HospitalQujmibsSVCEWLRQR0461-10-41 09:18:00 Test Item Value Reference Range Interpretation Comments Creatinine Lvl (test code = Creatinine 0.7 0.5-1.4 N Lvl) [facility] CenterSisdmvkNSZIPYURCD4214-86-19 09:18:00 Test Item Value Reference Range Interpretation Comments RDW (test code = RDW) 13.6 11.5-14.5 N [facility] CenterJdbjsrbRDYUQMFUTC5185-84-94 09:18:00 Test Item Value Reference Range Interpretation Comments MCV (test code = MCV) 98.9 80.0-94.0 H [facility] CenterOozgtxnSJZTERKEPQ7208-83-05 09:18:00 Test Item Value Reference Range Interpretation Comments Hct (test code = Hct) 38.8 42.0-54.0 L [facility] CenterCuftwbcSSLHUJDXXD0990-79-84 09:18:00 Test Item Value Reference Range Interpretation Comments MPV (test code = MPV) 9.7 7.4-10.4 N [facility] CenterJzsvwpqOMYJZMTSBN2572-88-09 09:18:00 Test Item Value Reference Range Interpretation Comments Platelet (test code = Platelet) 188 133-450 N [facility] CenterOyjgrreFYJAYNKAXM6197-94-83 09:18:00 Test Item Value Reference Range Interpretation Comments MCHC (test code = MCHC) 34.5 32.0-36.0 N [facility] CenterNbcpsagFUNUSBFOMN6803-35-89 09:18:00 Test Item Value Reference Range Interpretation Comments MCH (test code = MCH) 34.2 pg 27.0-31.0 H [facility] CenterEptsnwtZNAFEBTRMI6990-06-44 09:18:00 Test Item Value Reference Range Interpretation Comments Hgb (test code = Hgb) 13.4 14.0-18.0 L [facility] CenterMnxvlofJOOZMDZJLZ9083-31-76 09:18:00 Test Item Value Reference Range Interpretation Comments WBC (test code = WBC) 5.8 3.7-10.4 N [facility] CenterQggmsbqLLOFPFGNOQ3532-19-94 09:18:00 Test Item Value Reference Range Interpretation Comments RBC (test code = RBC) 3.92 4.70-6.10 L [facility] CenterZvduhnuXBTTKSYVLJ3718-62-22 09:18:00 Test Item Value Reference Range Interpretation Comments Monocytes # (test code = Monocytes #) 0.8 <=0.8 N [facility] CenterMenqvxhNQUXWVLLIE2860-19-18 09:18:00 Test Item Value Reference Range Interpretation Comments Lymphocytes # (test code = Lymphocytes 2.4 1.0-5.5 N #) [facility] CenterForuxeeEWNGRVWWUR0306-84-48 09:18:00 Test Item Value Reference Range Interpretation Comments Basophils # (test code = Basophils #) 0.0 <=0.2 N [facility] CenterPzdisvbEFCCEFFIVU9077-86-03 09:18:00 Test Item Value Reference Range Interpretation Comments Eosinophils # (test code = Eosinophils 0.2 <=0.5 N #) [facility] CenterJcmffdcJMAECCYFOQ3404-64-47 09:18:00 Test Item Value Reference Range Interpretation Comments Lymphocytes (test code = Lymphocytes) 41.3 20.0-40.0 H [facility] CenterGqbtldtAKAPXYMLCW0965-64-01 09:18:00 Test Item Value Reference Range Interpretation Comments Segs (test code = Segs) 41.0 45.0-75.0 L [facility] CenterZxevlnrDNCZKTIPSV3336-52-13 09:18:00 Test Item Value Reference Range Interpretation Comments Eosinophils (test code = Eosinophils) 3.9 <=4.0 N [facility] CenterNuerpmgQGMEELNEZM0484-32-81 09:18:00 Test Item Value Reference Range Interpretation Comments Segs-Bands # (test code = Segs-Bands #) 2.4 1.5-8.1 N [facility] CenterVtaxluuNKXIXGUKUP5636-37-95 09:18:00 Test Item Value Reference Range Interpretation Comments Basophils (test code = Basophils) 0.3 <=1.0 N [facility] CenterXddupajCTKBZWBCWC3941-24-80 09:18:00 Test Item Value Reference Range Interpretation Comments Monocytes (test code = Monocytes) 13.5 2.0-12.0 H [facility] HospitalEqymfowHWDSFXOIO7294-84-28 09:18:00 Test Item Value Reference Range Interpretation Comments AGAP (test code = AGAP) 14.0 10.0-20.0 N [facility] HospitalPjduewkCHMJDZGKO0015-84-11 09:18:00 Test Item Value Reference Range Interpretation Comments Chloride Lvl (test code = Chloride Lvl) 110 95-109 H [facility] HospitalQlhbsasRIVLCQLRM5278-58-89 09:18:00 Test Item Value Reference Range Interpretation Comments CO2 (test code = CO2) 26 24-32 N [facility] HospitalWdxsfgcZUBDCHMVE6643-86-55 09:18:00 Test Item Value Reference Range Interpretation Comments Calcium Lvl (test code = Calcium Lvl) 9.1 8.5-10.5 N [facility] HospitalUfcwklwODVNQCRYH2313-34-55 09:18:00 Test Item Value Reference Range Interpretation Comments Sodium Lvl (test code = Sodium Lvl) 146 135-145 H [facility] HospitalQvkkcogRZCBEAJEJ0350-71-52 09:18:00 Test Item Value Reference Range Interpretation Comments Potassium Lvl (test code = Potassium 4.0 3.5-5.1 N Lvl) [facility] HospitalPdzodqiUACRFVUJO2052-42-69 09:18:00 Test Item Value Reference Range Interpretation Comments BUN (test code = BUN) 11 7-22 N [facility] HospitalTbzvkclNECGKSUDV3908-95-96 09:18:00 Test Item Value Reference Range Interpretation Comments Glucose Lvl (test code = Glucose Lvl) 107 70-99 H [facility] HospitalQzspgbtTHZXTFYVF2944-48-48 09:18:00 Test Item Value Reference Range Interpretation Comments Creatinine Lvl (test code = Creatinine 0.7 0.5-1.4 N Lvl) [facility] CenterVutpfduZZEVNINGBL0309-86-63 09:18:00 Test Item Value Reference Range Interpretation Comments RDW (test code = RDW) 13.6 11.5-14.5 N [facility] CenterBfqxinvXFGHTUSNLX6579-22-43 09:18:00 Test Item Value Reference Range Interpretation Comments MCV (test code = MCV) 98.9 80.0-94.0 H [facility] CenterImcypfjFCBNURRVYU8715-92-70 09:18:00 Test Item Value Reference Range Interpretation Comments Hct (test code = Hct) 38.8 42.0-54.0 L [facility] CenterQjvndooJBFUVWUYQD5238-99-57 09:18:00 Test Item Value Reference Range Interpretation Comments MPV (test code = MPV) 9.7 7.4-10.4 N [facility] CenterScigriqOAYPPMNPBE0157-58-23 09:18:00 Test Item Value Reference Range Interpretation Comments Platelet (test code = Platelet) 188 133-450 N [facility] CenterQkqztwyLEHOOUGMQJ4051-28-30 09:18:00 Test Item Value Reference Range Interpretation Comments MCHC (test code = MCHC) 34.5 32.0-36.0 N [facility] CenterAsqyaqpDUWOCTHUVK4786-61-16 09:18:00 Test Item Value Reference Range Interpretation Comments MCH (test code = MCH) 34.2 pg 27.0-31.0 H [facility] CenterPranddvIDWAKOTZUQ9444-62-69 09:18:00 Test Item Value Reference Range Interpretation Comments Hgb (test code = Hgb) 13.4 14.0-18.0 L [facility] CenterLyjssgiGHDIWCWPOZ8437-70-31 09:18:00 Test Item Value Reference Range Interpretation Comments WBC (test code = WBC) 5.8 3.7-10.4 N [facility] CenterTtcfvujYLBDEJEJWR5704-34-33 09:18:00 Test Item Value Reference Range Interpretation Comments RBC (test code = RBC) 3.92 4.70-6.10 L [facility] CenterSmzsdnoXQPPGLTPPZ4240-30-16 09:18:00 Test Item Value Reference Range Interpretation Comments Monocytes # (test code 0.8 See_Comment N [Aut omated message] The = Monocytes #) system which generated this result tra nsmitted reference range : <=0.8. The reference r jessika was not used to int erpret this result as normal/abnormal . [facility] CenterPnaqzkqOOVAAXDLIQ0644-52-09 09:18:00 Test Item Value Reference Range Interpretation Comments Lymphocytes # (test code = Lymphocytes 2.4 1.0-5.5 N #) [facility] CenterGyvubojPEDADOKDXU6649-16-78 09:18:00 Test Item Value Reference Range Interpretation Comments Basophils # (test code 0.0 See_Comment N [Aut omated message] The = Basophils #) system which generated this result tra nsmitted reference range : <=0.2. The reference r jessika was not used to int erpret this result as normal/abnormal . [facility] CenterOuspbsyUOKYETLMIE0026-18-01 09:18:00 Test Item Value Reference Range Interpretation Comments Eosinophils # (test code 0.2 See_Comment N [A utomated message] The = Eosinophils #) system whic h generated this result tra nsmitted reference range : <=0.5. The reference r jessika was not used to int erpret this result as normal/abnormal . [facility] CenterOwteyxpYVUDIXKRNV6272-86-20 09:18:00 Test Item Value Reference Range Interpretation Comments Lymphocytes (test code = Lymphocytes) 41.3 20.0-40.0 H [facility] CenterQaeqmrlRDLOQACMOG1665-27-99 09:18:00 Test Item Value Reference Range Interpretation Comments Segs (test code = Segs) 41.0 45.0-75.0 L [facility] CenterEhfccmlNFSRFPTEDS8200-94-15 09:18:00 Test Item Value Reference Range Interpretation Comments Eosinophils (test code = 3.9 See_Comment N [A utomated message] The Eosinophils) system which ge nerated this result tra nsmitted reference range : <=4.0. The reference r jessika was not used to int erpret this result as normal/abnormal . [facility] CenterAuzittbQALCWOOTHJ2076-79-48 09:18:00 Test Item Value Reference Range Interpretation Comments Segs-Bands # (test code = Segs-Bands #) 2.4 1.5-8.1 N [facility] CenterLugkhlqLSLABNFFLS9558-40-02 09:18:00 Test Item Value Reference Range Interpretation Comments Basophils (test code = 0.3 See_Comment N [Aut omated message] The Basophils) system which ge nerated this result tra nsmitted reference range : <=1.0. The reference r jessika was not used to int erpret this result as normal/abnormal . [facility] CenterGyyxgowTTUOLHKOZS0948-18-58 09:18:00 Test Item Value Reference Range Interpretation Comments Monocytes (test code = Monocytes) 13.5 2.0-12.0 [facility] HospitalCynxataKCSMHQYUX2307-80-62 09:18:00 Test Item Value Reference Range Interpretation Comments AGAP (test code = AGAP) 14.0 10.0-20.0 N [facility] HospitalYmccenaSSGLCUXXE4370-17-83 09:18:00 Test Item Value Reference Range Interpretation Comments Chloride Lvl (test code = Chloride Lvl) 110 95-109 H [facility] HospitalNjzcwlqKQFHDKUTX1669-74-07 09:18:00 Test Item Value Reference Range Interpretation Comments CO2 (test code = CO2) 26 24-32 N [facility] HospitalPdbhggpFOVCIOMHR1399-87-32 09:18:00 Test Item Value Reference Range Interpretation Comments Calcium Lvl (test code = Calcium Lvl) 9.1 8.5-10.5 N [facility] HospitalMxzbrokCQWGAQVZU9462-56-20 09:18:00 Test Item Value Reference Range Interpretation Comments Sodium Lvl (test code = Sodium Lvl) 146 135-145 H [facility] HospitalNwsbqdjVUGMPCHCC8599-30-52 09:18:00 Test Item Value Reference Range Interpretation Comments Potassium Lvl (test code = Potassium 4.0 3.5-5.1 N Lvl) [facility] HospitalFqhcrjeLTGXYDFBY8175-21-68 09:18:00 Test Item Value Reference Range Interpretation Comments AGAP (test code = AGAP) 14.0 10.0-20.0 N [facility] HospitalQtczqrvAVSSBPBFD2138-32-53 09:18:00 Test Item Value Reference Range Interpretation Comments Chloride Lvl (test code = Chloride Lvl) 110 95-109 H [facility] HospitalQifauoiTCLTFTPHY9572-23-83 09:18:00 Test Item Value Reference Range Interpretation Comments CO2 (test code = CO2) 26 24-32 N [facility] HospitalJcgypycQLUJSYODH0557-73-37 09:18:00 Test Item Value Reference Range Interpretation Comments BUN (test code = BUN) 11 7-22 N [facility] HospitalLfzglshJTVMOWTPF5617-12-77 09:18:00 Test Item Value Reference Range Interpretation Comments Calcium Lvl (test code = Calcium Lvl) 9.1 8.5-10.5 N [facility] HospitalVqoycoaOIDCGEBTC9630-32-38 09:18:00 Test Item Value Reference Range Interpretation Comments Sodium Lvl (test code = Sodium Lvl) 146 135-145 H [facility] HospitalAldextgTGIXSIQNB0771-12-65 09:18:00 Test Item Value Reference Range Interpretation Comments Potassium Lvl (test code = Potassium 4.0 3.5-5.1 N Lvl) [facility] HospitalKbfvagmEPXTOUFQI8934-04-58 09:18:00 Test Item Value Reference Range Interpretation Comments BUN (test code = BUN) 11 7-22 N [facility] HospitalFtmctgmSCZUVJNMX4104-27-93 09:18:00 Test Item Value Reference Range Interpretation Comments Glucose Lvl (test code = Glucose Lvl) 107 70-99 H [facility] HospitalKyhypghCNUWJHRRT7791-70-39 09:18:00 Test Item Value Reference Range Interpretation Comments Creatinine Lvl (test code = Creatinine 0.7 0.5-1.4 N Lvl) [facility] CenterRerhrxnDONTVOOCOQ3894-55-29 09:18:00 Test Item Value Reference Range Interpretation Comments RDW (test code = RDW) 13.6 11.5-14.5 N [facility] CenterBggjcruWOMCHZBRJP0470-44-58 09:18:00 Test Item Value Reference Range Interpretation Comments MCV (test code = MCV) 98.9 80.0-94.0 H [facility] CenterEvadpjbVZBENTKVID9641-49-90 09:18:00 Test Item Value Reference Range Interpretation Comments Hct (test code = Hct) 38.8 42.0-54.0 L [facility] CenterPvmkzvdPHZNWKHZFD8540-15-12 09:18:00 Test Item Value Reference Range Interpretation Comments MPV (test code = MPV) 9.7 7.4-10.4 N [facility] HospitalWxoqiotROQITWXZC7497-77-82 09:18:00 Test Item Value Reference Range Interpretation Comments Glucose Lvl (test code = Glucose Lvl) 107 70-99 H [facility] CenterIupfhwlQLICMZPYCO6094-96-05 09:18:00 Test Item Value Reference Range Interpretation Comments Platelet (test code = Platelet) 188 133-450 N [facility] CenterPbcfsypVBUARBVMWT8915-69-46 09:18:00 Test Item Value Reference Range Interpretation Comments MCHC (test code = MCHC) 34.5 32.0-36.0 N [facility] CenterDlmljqmQKQGUHEXVG0447-88-15 09:18:00 Test Item Value Reference Range Interpretation Comments MCH (test code = MCH) 34.2 pg 27.0-31.0 H [facility] CenterCqmtaccZDRZAAIVHO2047-18-45 09:18:00 Test Item Value Reference Range Interpretation Comments Hgb (test code = Hgb) 13.4 14.0-18.0 L [facility] CenterFlagswfARDPMEDXIE7983-39-92 09:18:00 Test Item Value Reference Range Interpretation Comments WBC (test code = WBC) 5.8 3.7-10.4 N [facility] CenterWepspafHLPWTRBOTA0973-88-94 09:18:00 Test Item Value Reference Range Interpretation Comments RBC (test code = RBC) 3.92 4.70-6.10 L [facility] CenterJoyrmteGPRQGCFOQE0623-23-66 09:18:00 Test Item Value Reference Range Interpretation Comments Monocytes # (test code 0.8 See_Comment N [Aut omated message] The = Monocytes #) system which generated this result tra nsmitted reference range : <=0.8. The reference r jessika was not used to int erpret this result as normal/abnormal . [facility] CenterEqmbmteSKUCNIWWNY2387-14-60 09:18:00 Test Item Value Reference Range Interpretation Comments Lymphocytes # (test code = Lymphocytes 2.4 1.0-5.5 N #) [facility] CenterDbrhhfkRFRGAVBVEV6547-11-07 09:18:00 Test Item Value Reference Range Interpretation Comments Basophils # (test code 0.0 See_Comment N [Aut omated message] The = Basophils #) system which generated this result tra nsmitted reference range : <=0.2. The reference r jessika was not used to int erpret this result as normal/abnormal . [facility] CenterCuedxayFTTGDQLBNS4821-00-34 09:18:00 Test Item Value Reference Range Interpretation Comments Eosinophils # (test code 0.2 See_Comment N [A utomated message] The = Eosinophils #) system whic h generated this result tra nsmitted reference range : <=0.5. The reference r jessika was not used to int erpret this result as normal/abnormal . [facility] HospitalGotppwdJBRFHFBZZ1919-79-01 09:18:00 Test Item Value Reference Range Interpretation Comments Creatinine Lvl (test code = Creatinine 0.7 0.5-1.4 N Lvl) [facility] CenterTaznlzdSRGRVUDYJZ5583-09-64 09:18:00 Test Item Value Reference Range Interpretation Comments Lymphocytes (test code = Lymphocytes) 41.3 20.0-40.0 H [facility] CenterAcqmeamKBOOCTYEUS1841-14-56 09:18:00 Test Item Value Reference Range Interpretation Comments Segs (test code = Segs) 41.0 45.0-75.0 L [facility] CenterMbuthfdHVQMPMIITR1976-57-62 09:18:00 Test Item Value Reference Range Interpretation Comments Eosinophils (test code = 3.9 See_Comment N [A utomated message] The Eosinophils) system which ge nerated this result tra nsmitted reference range : <=4.0. The reference r jessika was not used to int erpret this result as normal/abnormal . [facility] CenterNwfjmbuSCHKIAAMXO1937-95-49 09:18:00 Test Item Value Reference Range Interpretation Comments Segs-Bands # (test code = Segs-Bands #) 2.4 1.5-8.1 N [facility] CenterQwczcfxZONULDSQNL9782-93-99 09:18:00 Test Item Value Reference Range Interpretation Comments Basophils (test code = 0.3 See_Comment N [Aut omated message] The Basophils) system which ge nerated this result tra nsmitted reference range : <=1.0. The reference r jessika was not used to int erpret this result as normal/abnormal . [facility] CenterBupzxfvPZDWRLMBOM7418-98-83 09:18:00 Test Item Value Reference Range Interpretation Comments Monocytes (test code = Monocytes) 13.5 2.0-12.0 H [facility] CenterEtzbeulHYLIPQGOSW5070-76-41 09:18:00 Test Item Value Reference Range Interpretation Comments RDW (test code = RDW) 13.6 11.5-14.5 N [facility] CenterJuvukaqBDQTPAQTGJ6176-19-99 09:18:00 Test Item Value Reference Range Interpretation Comments MCV (test code = MCV) 98.9 80.0-94.0 H [facility] CenterLdyfkqzZCNCXEGXVK0043-56-22 09:18:00 Test Item Value Reference Range Interpretation Comments Hct (test code = Hct) 38.8 42.0-54.0 L [facility] CenterHphbwkpRAYCNYTLQD1094-18-45 09:18:00 Test Item Value Reference Range Interpretation Comments MPV (test code = MPV) 9.7 7.4-10.4 N [facility] CenterKtjgeboSTBPUEXPUT6017-99-74 09:18:00 Test Item Value Reference Range Interpretation Comments Platelet (test code = Platelet) 188 133-450 N [facility] CenterEnpqoldMDNLUASJHN8641-45-57 09:18:00 Test Item Value Reference Range Interpretation Comments MCHC (test code = MCHC) 34.5 32.0-36.0 N [facility] CenterQuqdlsjUWHSJDDOQB4106-13-25 09:18:00 Test Item Value Reference Range Interpretation Comments MCH (test code = MCH) 34.2 pg 27.0-31.0 H [facility] CenterFyzzwhbWYVVECLLEF5273-65-55 09:18:00 Test Item Value Reference Range Interpretation Comments Hgb (test code = Hgb) 13.4 14.0-18.0 L [facility] CenterQyrtkwqPNBTVYKDZK1326-51-68 09:18:00 Test Item Value Reference Range Interpretation Comments WBC (test code = WBC) 5.8 3.7-10.4 N [facility] CenterFxkxvqhNYRLHPDEZW6777-86-10 09:18:00 Test Item Value Reference Range Interpretation Comments RBC (test code = RBC) 3.92 4.70-6.10 L [facility] CenterAkxxfvkYSTSXASRCY0442-18-48 09:18:00 Test Item Value Reference Range Interpretation Comments Monocytes # (test code 0.8 See_Comment N [Aut omated message] The = Monocytes #) system which generated this result tra nsmitted reference range : <=0.8. The reference r jessika was not used to int erpret this result as normal/abnormal . [facility] CenterLxjowopWXXABLXAMH2765-67-16 09:18:00 Test Item Value Reference Range Interpretation Comments Lymphocytes # (test code = Lymphocytes 2.4 1.0-5.5 N #) [facility] CenterGlgppfnLDONDKYNYU8860-39-86 09:18:00 Test Item Value Reference Range Interpretation Comments Basophils # (test code 0.0 See_Comment N [Aut omated message] The = Basophils #) system which generated this result tra nsmitted reference range : <=0.2. The reference r jessika was not used to int erpret this result as normal/abnormal . [facility] CenterOvarpofSVDHWYTXKM4427-61-33 09:18:00 Test Item Value Reference Range Interpretation Comments Eosinophils # (test code 0.2 See_Comment N [A utomated message] The = Eosinophils #) system whic h generated this result tra nsmitted reference range : <=0.5. The reference r jessika was not used to int erpret this result as normal/abnormal . [facility] HospitalQautdywVHAHAZZMQ2353-80-56 09:18:00 Test Item Value Reference Range Interpretation Comments AGAP (test code = AGAP) 14.0 10.0-20.0 N [facility] HospitalRaekvjzCSBSCJBRL1764-27-65 09:18:00 Test Item Value Reference Range Interpretation Comments Chloride Lvl (test code = Chloride Lvl) 110 95-109 H [facility] HospitalWagszgxOZIMNVRTP9546-47-73 09:18:00 Test Item Value Reference Range Interpretation Comments CO2 (test code = CO2) 26 24-32 N [facility] HospitalZvqyejgZPVHMEZRM4834-99-82 09:18:00 Test Item Value Reference Range Interpretation Comments Calcium Lvl (test code = Calcium Lvl) 9.1 8.5-10.5 N [facility] HospitalJwoivpcRAEOTMJIM7839-54-31 09:18:00 Test Item Value Reference Range Interpretation Comments Sodium Lvl (test code = Sodium Lvl) 146 135-145 H [facility] HospitalBjjrivqBJCUIXVFE9990-76-47 09:18:00 Test Item Value Reference Range Interpretation Comments Potassium Lvl (test code = Potassium 4.0 3.5-5.1 N Lvl) [facility] HospitalFbcruckFDEUZZYNF7124-99-55 09:18:00 Test Item Value Reference Range Interpretation Comments BUN (test code = BUN) 11 7-22 N [facility] HospitalSdsvbfdTHFXSYQTK6299-19-27 09:18:00 Test Item Value Reference Range Interpretation Comments Glucose Lvl (test code = Glucose Lvl) 107 70-99 H [facility] HospitalLhfbvkiUELJMICCG1904-11-13 09:18:00 Test Item Value Reference Range Interpretation Comments Creatinine Lvl (test code = Creatinine 0.7 0.5-1.4 N Lvl) [facility] CenterSrmvfpcMMZRBVASTM2188-28-03 09:18:00 Test Item Value Reference Range Interpretation Comments Lymphocytes (test code = Lymphocytes) 41.3 20.0-40.0 H [facility] CenterBmbxkysZVHGUZVSRW2977-10-60 09:18:00 Test Item Value Reference Range Interpretation Comments RDW (test code = RDW) 13.6 11.5-14.5 N [facility] CenterZbhadxwHXVFKEBLLH7607-31-59 09:18:00 Test Item Value Reference Range Interpretation Comments MCV (test code = MCV) 98.9 80.0-94.0 H [facility] CenterKravkwhVAQAJWNGMV4582-70-28 09:18:00 Test Item Value Reference Range Interpretation Comments Hct (test code = Hct) 38.8 42.0-54.0 L [facility] CenterSohhtfbRPUUPFKZQJ6203-30-42 09:18:00 Test Item Value Reference Range Interpretation Comments MPV (test code = MPV) 9.7 7.4-10.4 N [facility] CenterQiqwpfzHVXYAAVNKX8996-60-07 09:18:00 Test Item Value Reference Range Interpretation Comments Platelet (test code = Platelet) 188 133-450 N [facility] CenterXzznsbgCFMNOXWJFQ8235-57-64 09:18:00 Test Item Value Reference Range Interpretation Comments MCHC (test code = MCHC) 34.5 32.0-36.0 N [facility] CenterCfgmvzhEKBKSQLZOV3971-06-98 09:18:00 Test Item Value Reference Range Interpretation Comments MCH (test code = MCH) 34.2 pg 27.0-31.0 H [facility] CenterPrzvhsjANIVWKINNW5219-63-58 09:18:00 Test Item Value Reference Range Interpretation Comments Hgb (test code = Hgb) 13.4 14.0-18.0 L [facility] CenterLxjxvxvWZUUOEWIBY5589-99-32 09:18:00 Test Item Value Reference Range Interpretation Comments WBC (test code = WBC) 5.8 3.7-10.4 N [facility] CenterLpdwugdXWTDYMWVWE8849-59-22 09:18:00 Test Item Value Reference Range Interpretation Comments RBC (test code = RBC) 3.92 4.70-6.10 L [facility] CenterRzxdlhwZUVVCARPPL7912-53-55 09:18:00 Test Item Value Reference Range Interpretation Comments Segs (test code = Segs) 41.0 45.0-75.0 L [facility] CenterAnhdnpxFIHHHJZEGX7628-94-99 09:18:00 Test Item Value Reference Range Interpretation Comments Monocytes # (test code 0.8 See_Comment N [Aut omated message] The = Monocytes #) system which generated this result tra nsmitted reference range : <=0.8. The reference r jessika was not used to int erpret this result as normal/abnormal . [facility] CenterHvpqbxhGWTDIYMPUY8140-65-65 09:18:00 Test Item Value Reference Range Interpretation Comments Lymphocytes # (test code = Lymphocytes 2.4 1.0-5.5 N #) [facility] CenterDzfnstiCIYWCIKWGR9993-95-51 09:18:00 Test Item Value Reference Range Interpretation Comments Basophils # (test code 0.0 See_Comment N [Aut omated message] The = Basophils #) system which generated this result tra nsmitted reference range : <=0.2. The reference r jessika was not used to int erpret this result as normal/abnormal . [facility] CenterPjsckkxSMOHORNUHS1607-58-44 09:18:00 Test Item Value Reference Range Interpretation Comments Eosinophils # (test code 0.2 See_Comment N [A utomated message] The = Eosinophils #) system whic h generated this result tra nsmitted reference range : <=0.5. The reference r jessika was not used to int erpret this result as normal/abnormal . [facility] CenterFhldiemEGUBNOJTSP8083-16-79 09:18:00 Test Item Value Reference Range Interpretation Comments Lymphocytes (test code = Lymphocytes) 41.3 20.0-40.0 H [facility] CenterCvzyimuSMTGOECCKE5327-95-08 09:18:00 Test Item Value Reference Range Interpretation Comments Segs (test code = Segs) 41.0 45.0-75.0 L [facility] CenterVnvzdbiWGUXNIJRME2897-53-11 09:18:00 Test Item Value Reference Range Interpretation Comments Eosinophils (test code = 3.9 See_Comment N [A utomated message] The Eosinophils) system which ge nerated this result tra nsmitted reference range : <=4.0. The reference r jessika was not used to int erpret this result as normal/abnormal . [facility] CenterLmalvqhJRGCVCOUYC5966-69-74 09:18:00 Test Item Value Reference Range Interpretation Comments Segs-Bands # (test code = Segs-Bands #) 2.4 1.5-8.1 N [facility] CenterIofvubfBUKANWDMWY5584-20-27 09:18:00 Test Item Value Reference Range Interpretation Comments Basophils (test code = 0.3 See_Comment N [Aut omated message] The Basophils) system which ge nerated this result tra nsmitted reference range : <=1.0. The reference r jessika was not used to int erpret this result as normal/abnormal . [facility] CenterTzsxzetNQOGSQLXXJ6202-50-20 09:18:00 Test Item Value Reference Range Interpretation Comments Monocytes (test code = Monocytes) 13.5 2.0-12.0 H [facility] CenterPpfxhjkQMWBILMNOU3736-02-77 09:18:00 Test Item Value Reference Range Interpretation Comments Eosinophils (test code = 3.9 See_Comment N [A utomated message] The Eosinophils) system which ge nerated this result tra nsmitted reference range : <=4.0. The reference r jessika was not used to int erpret this result as normal/abnormal . [facility] CenterYeqgrvbLBJJMTHEBI8972-29-02 09:18:00 Test Item Value Reference Range Interpretation Comments Segs-Bands # (test code = Segs-Bands #) 2.4 1.5-8.1 N [facility] CenterRjszaazIJEFJLLNQD8788-33-45 09:18:00 Test Item Value Reference Range Interpretation Comments Basophils (test code = 0.3 See_Comment N [Aut omated message] The Basophils) system which ge nerated this result tra nsmitted reference range : <=1.0. The reference r jessika was not used to int erpret this result as normal/abnormal . [facility] CenterFsmkjqtAIYMQWQEUQ2388-43-84 09:18:00 Test Item Value Reference Range Interpretation Comments Monocytes (test code = Monocytes) 13.5 2.0-12.0 H [facility] HospitalRonsserWPWNBJZZI9285-89-78 09:18:00 Test Item Value Reference Range Interpretation Comments AGAP (test code = AGAP) 14.0 10.0-20.0 N [facility] HospitalEwkhohxWLLUHDQIP4980-65-26 09:18:00 Test Item Value Reference Range Interpretation Comments Chloride Lvl (test code = Chloride Lvl) 110 95-109 H [facility] HospitalSgafshzTXSLUMZNB5422-60-17 09:18:00 Test Item Value Reference Range Interpretation Comments CO2 (test code = CO2) 26 24-32 N [facility] HospitalAlwhesaGXKZQSWPN3076-73-86 09:18:00 Test Item Value Reference Range Interpretation Comments Calcium Lvl (test code = Calcium Lvl) 9.1 8.5-10.5 N [facility] HospitalKqlzvqtBQYTGZLBJ4339-22-68 09:18:00 Test Item Value Reference Range Interpretation Comments Sodium Lvl (test code = Sodium Lvl) 146 135-145 H [facility] HospitalCmypzwkZFXFWLSDT6161-25-46 09:18:00 Test Item Value Reference Range Interpretation Comments Potassium Lvl (test code = Potassium 4.0 3.5-5.1 N Lvl) [facility] HospitalFascgjsSVLYSHYNO5050-36-60 09:18:00 Test Item Value Reference Range Interpretation Comments BUN (test code = BUN) 11 7-22 N [facility] HospitalPtelenaWJOCRJSOJ7697-45-94 09:18:00 Test Item Value Reference Range Interpretation Comments Glucose Lvl (test code = Glucose Lvl) 107 70-99 H [facility] HospitalFgdpfifUQOSDTADD4694-32-83 09:18:00 Test Item Value Reference Range Interpretation Comments Creatinine Lvl (test code = Creatinine 0.7 0.5-1.4 N Lvl) [facility] CenterJuspkdaFUOZDUNGSC7073-78-14 09:18:00 Test Item Value Reference Range Interpretation Comments RDW (test code = RDW) 13.6 11.5-14.5 N [facility] CenterDikkthcXBPHCXCGAJ0784-02-14 09:18:00 Test Item Value Reference Range Interpretation Comments MCV (test code = MCV) 98.9 80.0-94.0 H [facility] CenterEuwotzeATCMGKOMAU0272-52-37 09:18:00 Test Item Value Reference Range Interpretation Comments Hct (test code = Hct) 38.8 42.0-54.0 L [facility] CenterCnocpdmRYFRLWXLHM2574-16-28 09:18:00 Test Item Value Reference Range Interpretation Comments MPV (test code = MPV) 9.7 7.4-10.4 N [facility] CenterLkqilgaKYYICZUKMX5692-31-10 09:18:00 Test Item Value Reference Range Interpretation Comments Platelet (test code = Platelet) 188 133-450 N [facility] CenterSwvfwxqURRTIOGBUP0094-55-65 09:18:00 Test Item Value Reference Range Interpretation Comments MCHC (test code = MCHC) 34.5 32.0-36.0 N [facility] CenterJokmmpiEWLKKSXUZW6308-55-35 09:18:00 Test Item Value Reference Range Interpretation Comments MCH (test code = MCH) 34.2 pg 27.0-31.0 H [facility] CenterZoclrorTAUFCZXMUB1175-19-84 09:18:00 Test Item Value Reference Range Interpretation Comments Hgb (test code = Hgb) 13.4 14.0-18.0 L [facility] CenterApaktdyVHKILOYWUO2655-46-18 09:18:00 Test Item Value Reference Range Interpretation Comments WBC (test code = WBC) 5.8 3.7-10.4 N [facility] CenterCajqgwtACVYTVQSCF0813-12-85 09:18:00 Test Item Value Reference Range Interpretation Comments RBC (test code = RBC) 3.92 4.70-6.10 L [facility] CenterQocubvkNFZQQSJZOG5956-04-58 09:18:00 Test Item Value Reference Range Interpretation Comments Monocytes # (test code 0.8 See_Comment N [Aut omated message] The = Monocytes #) system which generated this result tra nsmitted reference range : <=0.8. The reference r jessika was not used to int erpret this result as normal/abnormal . [facility] CenterHwmuavqJMCOAGOTIF5602-07-20 09:18:00 Test Item Value Reference Range Interpretation Comments Lymphocytes # (test code = Lymphocytes 2.4 1.0-5.5 N #) [facility] CenterBowfmneRTYIRWWYNT8602-25-63 09:18:00 Test Item Value Reference Range Interpretation Comments Basophils # (test code 0.0 See_Comment N [Aut omated message] The = Basophils #) system which generated this result tra nsmitted reference range : <=0.2. The reference r jessika was not used to int erpret this result as normal/abnormal . [facility] CenterUbekjvuKWVNWKUQIU7807-16-49 09:18:00 Test Item Value Reference Range Interpretation Comments Eosinophils # (test code 0.2 See_Comment N [A utomated message] The = Eosinophils #) system whic h generated this result tra nsmitted reference range : <=0.5. The reference r jessika was not used to int erpret this result as normal/abnormal . [facility] CenterByuocxhCASJZAHWCH8764-27-53 09:18:00 Test Item Value Reference Range Interpretation Comments Lymphocytes (test code = Lymphocytes) 41.3 20.0-40.0 H [facility] CenterQycqkffHJWTTLEQZN3738-30-78 09:18:00 Test Item Value Reference Range Interpretation Comments Segs (test code = Segs) 41.0 45.0-75.0 L [facility] CenterPsopngoPQGPWTGTPI0614-84-66 09:18:00 Test Item Value Reference Range Interpretation Comments Eosinophils (test code = 3.9 See_Comment N [A utomated message] The Eosinophils) system which ge nerated this result tra nsmitted reference range : <=4.0. The reference r jessika was not used to int erpret this result as normal/abnormal . [facility] CenterBcjjrsxLUKXLDEUET9611-67-88 09:18:00 Test Item Value Reference Range Interpretation Comments Segs-Bands # (test code = Segs-Bands #) 2.4 1.5-8.1 N [facility] CenterDsrdqwyKKSIGQZPLC0814-12-36 09:18:00 Test Item Value Reference Range Interpretation Comments Basophils (test code = 0.3 See_Comment N [Aut omated message] The Basophils) system which ge nerated this result tra nsmitted reference range : <=1.0. The reference r jessika was not used to int erpret this result as normal/abnormal . [facility] CenterNjxqqbnZDKEVLHLGZ0313-77-96 09:18:00 Test Item Value Reference Range Interpretation Comments Monocytes (test code = Monocytes) 13.5 2.0-12.0 H [facility]CnvtutxXJJMTUJAU4722-24-60 09:18:00 Test Item Value Reference Range Interpretation Comments AGAP (test code = AGAP) 14.0 10.0-20.0 N [facility] HospitalKpnlqhmZSOUHVEOV5540-63-97 09:18:00 Test Item Value Reference Range Interpretation Comments Chloride Lvl (test code = Chloride Lvl) 110 95-109 H [facility] HospitalEpujjfiKLYXUMVID7943-41-06 09:18:00 Test Item Value Reference Range Interpretation Comments CO2 (test code = CO2) 26 24-32 N [facility] HospitalCpxnsqhPLGLERJYF4479-24-19 09:18:00 Test Item Value Reference Range Interpretation Comments Calcium Lvl (test code = Calcium Lvl) 9.1 8.5-10.5 N [facility] HospitalMzewoxjLVABTCTYI3713-11-44 09:18:00 Test Item Value Reference Range Interpretation Comments Sodium Lvl (test code = Sodium Lvl) 146 135-145 H [facility] HospitalGqvevtrZWKBXKVSG1243-34-71 09:18:00 Test Item Value Reference Range Interpretation Comments Potassium Lvl (test code = Potassium 4.0 3.5-5.1 N Lvl) [facility] HospitalGuyjglyCRJBDRCMW4865-76-28 09:18:00 Test Item Value Reference Range Interpretation Comments BUN (test code = BUN) 11 7-22 N [facility] HospitalYkbqxazPCMXAJWMM9968-38-43 09:18:00 Test Item Value Reference Range Interpretation Comments Glucose Lvl (test code = Glucose Lvl) 107 70-99 H [facility] HospitalDbpvwhnCPFVNKPIJ3130-96-85 09:18:00 Test Item Value Reference Range Interpretation Comments Creatinine Lvl (test code = Creatinine 0.7 0.5-1.4 N Lvl) [facility] CenterPzcfzspNWSLZCRUSP8632-48-98 09:18:00 Test Item Value Reference Range Interpretation Comments RDW (test code = RDW) 13.6 11.5-14.5 N [facility] CenterStqzuoxQNMSCETTXV1350-20-50 09:18:00 Test Item Value Reference Range Interpretation Comments MCV (test code = MCV) 98.9 80.0-94.0 H [facility] CenterVopdtybUXSKNWBHIO8584-56-44 09:18:00 Test Item Value Reference Range Interpretation Comments Hct (test code = Hct) 38.8 42.0-54.0 L [facility] CenterGobkardYAUOKFCCQJ9253-58-57 09:18:00 Test Item Value Reference Range Interpretation Comments MPV (test code = MPV) 9.7 7.4-10.4 N [facility] CenterRvjzbpxAFNQWXXKII1465-54-92 09:18:00 Test Item Value Reference Range Interpretation Comments Platelet (test code = Platelet) 188 133-450 N [facility] CenterUqdjzmxNDZQJNQGMP6569-69-06 09:18:00 Test Item Value Reference Range Interpretation Comments MCHC (test code = MCHC) 34.5 32.0-36.0 N [facility] CenterYeueqgnMGWJPWLUGV8263-68-93 09:18:00 Test Item Value Reference Range Interpretation Comments MCH (test code = MCH) 34.2 pg 27.0-31.0 H [facility] CenterQeuwkqgFPWSPUQYCS8016-29-49 09:18:00 Test Item Value Reference Range Interpretation Comments Hgb (test code = Hgb) 13.4 14.0-18.0 L [facility] CenterMmzzrqdZGYMMBEPWW3121-51-95 09:18:00 Test Item Value Reference Range Interpretation Comments WBC (test code = WBC) 5.8 3.7-10.4 N [facility] CenterBoosyicYGDBRBUWUS5711-69-98 09:18:00 Test Item Value Reference Range Interpretation Comments RBC (test code = RBC) 3.92 4.70-6.10 L [facility] CenterJtcicdyRRRLFXRRLG6112-54-03 09:18:00 Test Item Value Reference Range Interpretation Comments Monocytes # (test code 0.8 See_Comment N [Aut omated message] The = Monocytes #) system which generated this result tra nsmitted reference range : <=0.8. The reference r jessika was not used to int erpret this result as normal/abnormal . [facility] CenterKynahczRSFDDRULKW9348-57-22 09:18:00 Test Item Value Reference Range Interpretation Comments Lymphocytes # (test code = Lymphocytes 2.4 1.0-5.5 N #) [facility] CenterEfiqqkmSEQOGHDFWK2851-22-33 09:18:00 Test Item Value Reference Range Interpretation Comments Basophils # (test code 0.0 See_Comment N [Aut omated message] The = Basophils #) system which generated this result tra nsmitted reference range : <=0.2. The reference r jessika was not used to int erpret this result as normal/abnormal . [facility] CenterXxerkfnEWNRLFWMSS6911-85-71 09:18:00 Test Item Value Reference Range Interpretation Comments Eosinophils # (test code 0.2 See_Comment N [A utomated message] The = Eosinophils #) system whic h generated this result tra nsmitted reference range : <=0.5. The reference r jessika was not used to int erpret this result as normal/abnormal . [facility] CenterZfhexirAGCUATHQIP1141-38-52 09:18:00 Test Item Value Reference Range Interpretation Comments Lymphocytes (test code = Lymphocytes) 41.3 20.0-40.0 H [facility] CenterRitnmosUNNYDLNNGM7313-71-23 09:18:00 Test Item Value Reference Range Interpretation Comments Segs (test code = Segs) 41.0 45.0-75.0 L [facility] CenterJqxduplYBHMJGRVQW5086-93-97 09:18:00 Test Item Value Reference Range Interpretation Comments Eosinophils (test code = 3.9 See_Comment N [A utomated message] The Eosinophils) system which ge nerated this result tra nsmitted reference range : <=4.0. The reference r jessika was not used to int erpret this result as normal/abnormal . [facility] CenterYjjfpseASVQWBUCWM4824-75-25 09:18:00 Test Item Value Reference Range Interpretation Comments Segs-Bands # (test code = Segs-Bands #) 2.4 1.5-8.1 N [facility] CenterKggorchZMAVSKCIRO4736-50-82 09:18:00 Test Item Value Reference Range Interpretation Comments Basophils (test code = 0.3 See_Comment N [Aut omated message] The Basophils) system which ge nerated this result tra nsmitted reference range : <=1.0. The reference r jessika was not used to int erpret this result as normal/abnormal . [facility] CenterMtfabetANKENEWFYG1753-74-96 09:18:00 Test Item Value Reference Range Interpretation Comments Monocytes (test code = Monocytes) 13.5 2.0-12.0 H [facility] HospitalJxhmxeoNOKBIAJYJ3008-66-61 09:18:00 Test Item Value Reference Range Interpretation Comments AGAP (test code = AGAP) 14.0 10.0-20.0 N [facility] HospitalGnivhepNFGCYMCZX7466-83-40 09:18:00 Test Item Value Reference Range Interpretation Comments Chloride Lvl (test code = Chloride Lvl) 110 95-109 H [facility]GxicneeBEFGOCCCF4882-27-94 09:18:00 Test Item Value Reference Range Interpretation Comments CO2 (test code = CO2) 26 24-32 N [facility]roeXhscycaWLJWZFJUB7334-55-21 09:18:00 Test Item Value Reference Range Interpretation Comments Calcium Lvl (test code = Calcium Lvl) 9.1 8.5-10.5 N [facility]roeVwwxfadXJQWTPZSM3238-60-10 09:18:00 Test Item Value Reference Range Interpretation Comments Sodium Lvl (test code = Sodium Lvl) 146 135-145 H [facility]roeDabhcotSKNFDHTFZ4313-43-05 09:18:00 Test Item Value Reference Range Interpretation Comments Potassium Lvl (test code = Potassium 4.0 3.5-5.1 N Lvl) [facility] GLUCOSE MJAUETV3401-46-57 21:40:00 Test Item Value Reference Range Interpretation Comments Comment1 (test code = Comment1) Notify RN/ [facility] GLUCOSE WWDAWUZ5622-75-14 21:40:00 Test Item Value Reference Range Interpretation Comments Gluc POC Lifscn (test code = Gluc POC 121 70-99 H Lifscn) [facility] GLUCOSE DGUGJBN7750-10-01 21:40:00 Test Item Value Reference Range Interpretation Comments Comment1 (test code = Comment1) Notify RN/ [facility] GLUCOSE OEGMFRB6815-64-99 21:40:00 Test Item Value Reference Range Interpretation Comments Gluc POC Lifscn (test code = Gluc POC 121 70-99 H Lifscn) [facility] GLUCOSE PGJGCCQ0990-23-02 21:40:00 Test Item Value Reference Range Interpretation Comments Comment1 (test code = Comment1) Notify RN/ [facility] GLUCOSE JKZCJDH7064-93-79 21:40:00 Test Item Value Reference Range Interpretation Comments Gluc POC Lifscn (test code = Gluc POC 121 70-99 H Lifscn) [facility] GLUCOSE IYPKXLU0851-01-61 21:40:00 Test Item Value Reference Range Interpretation Comments Comment1 (test code = Comment1) Notify RN/ [facility] GLUCOSE HBKWIIW1573-46-21 21:40:00 Test Item Value Reference Range Interpretation Comments Gluc POC Lifscn (test code = Gluc POC 121 70-99 H Lif[facility]n) [facility] GLUCOSE GRSKLLD8773-32-20 21:40:00 Test Item Value Reference Range Interpretation Comments Comment1 (test code = Comment1) Notify RN/ [facility] GLUCOSE POVYGYG9755-66-40 21:40:00 Test Item Value Reference Range Interpretation Comments Gluc POC Lifscn (test code = Gluc POC 121 70-99 H Lifscn) [facility] GLUCOSE XEALDTB1712-04-28 21:40:00 Test Item Value Reference Range Interpretation Comments Comment1 (test code = Comment1) Notify RN/ [facility] GLUCOSE NOGVQRN6374-74-30 21:40:00 Test Item Value Reference Range Interpretation Comments Gluc POC Lifscn (test code = Gluc POC 121 70-99 H Lif[facility]n) [facility] GLUCOSE PZZZFYS9453-39-28 21:40:00 Test Item Value Reference Range Interpretation Comments Comment1 (test code = Comment1) Notify RN/ [facility] GLUCOSE KCZEFXS0619-29-42 21:40:00 Test Item Value Reference Range Interpretation Comments Gluc POC Lifscn (test code = Gluc POC 121 70-99 H Lifscn) [facility] GLUCOSE JSFKJRB5692-52-95 21:40:00 Test Item Value Reference Range Interpretation Comments Comment1 (test code = Comment1) Notify RN/ [facility] GLUCOSE GMZPFOH0643-89-37 21:40:00 Test Item Value Reference Range Interpretation Comments Gluc POC Lifscn (test code = Gluc POC 121 70-99 H Lif[facility]n) [facility] GLUCOSE [id number] 21:40:00 Test Item Value Reference Range Interpretation Comments Comment1 (test code = Comment1) Notify RN/ [facility] GLUCOSE FJQLXKE4786-52-71 21:40:00 Test Item Value Reference Range Interpretation Comments Gluc POC Lifscn (test code = Gluc POC 121 70-99 H Lifscn) [facility] GLUCOSE MNJMEQS2267-75-16 21:40:00 Test Item Value Reference Range Interpretation Comments Comment1 (test code = Comment1) Notify RN/ [facility] GLUCOSE [id number] 21:40:00 Test Item Value Reference Range Interpretation Comments Gluc POC Lifscn (test code = Gluc POC 121 70-99 H Lifscn) [facility] HospitalSmvkxrxJMNRBNYRJ8624-24-44 10:14:00 Test Item Value Reference Range Interpretation Comments CO2 (test code = CO2) 30 24-32 N [facility] HospitalIfcljdqKSYVZSYZH1213-01-54 10:14:00 Test Item Value Reference Range Interpretation Comments Calcium Lvl (test code = Calcium Lvl) 9.0 8.5-10.5 N [facility] HospitalTpzmjjdPWMPFNYSI4151-20-44 10:14:00 Test Item Value Reference Range Interpretation Comments Glucose Lvl (test code = Glucose Lvl) 86 70-99 N [facility] HospitalXsnpvryQMLRPAWXD9292-66-20 10:14:00 Test Item Value Reference Range Interpretation Comments Potassium Lvl (test code = Potassium 4.4 3.5-5.1 N Lvl) [facility] HospitalCrowiixTGEEGAPSG3604-93-42 10:14:00 Test Item Value Reference Range Interpretation Comments Chloride Lvl (test code = Chloride Lvl) 107 95-109 N [facility] HospitalKzhkarfMPTATGQPU3963-65-76 10:14:00 Test Item Value Reference Range Interpretation Comments BUN (test code = BUN) 13 7-22 N [facility] HospitalHfagglmQKLTWDXMP8347-78-49 10:14:00 Test Item Value Reference Range Interpretation Comments Creatinine Lvl (test code = Creatinine 0.7 0.5-1.4 N Lvl) [facility] HospitalOddfydtFWITULBKP2196-86-09 10:14:00 Test Item Value Reference Range Interpretation Comments Sodium Lvl (test code = Sodium Lvl) 144 135-145 N [facility] HospitalWjryvfbWSTATLQLF9918-01-23 10:14:00 Test Item Value Reference Range Interpretation Comments AGAP (test code = AGAP) 11.4 10.0-20.0 N [facility] CenterRciqnyvIHYFRPNSNF6163-78-39 10:14:00 Test Item Value Reference Range Interpretation Comments Basophils (test code = Basophils) 0.5 <=1.0 N [facility] CenterCvlalijKGIAUAUYMC3513-17-16 10:14:00 Test Item Value Reference Range Interpretation Comments Eosinophils (test code = Eosinophils) 3.1 <=4.0 N [facility] CenterLhwwlosRYCGOCOWCB5316-46-26 10:14:00 Test Item Value Reference Range Interpretation Comments Segs-Bands # (test code = Segs-Bands #) 3.1 1.5-8.1 N [facility] CenterIbxtzcgBEVLGFTNTN8017-89-65 10:14:00 Test Item Value Reference Range Interpretation Comments Lymphocytes # (test code = Lymphocytes 2.3 1.0-5.5 N #) [facility] CenterBwrkxacTPVELOOZJM2410-75-94 10:14:00 Test Item Value Reference Range Interpretation Comments Monocytes # (test code = Monocytes #) 0.9 <=0.8 H [facility] CenterAdtcpiqLDWDLZIHBL5832-42-76 10:14:00 Test Item Value Reference Range Interpretation Comments Segs (test code = Segs) 48.3 45.0-75.0 N [facility] CenterBzgnvtkAFVCHXETEP0154-81-71 10:14:00 Test Item Value Reference Range Interpretation Comments Lymphocytes (test code = Lymphocytes) 34.9 20.0-40.0 N [facility] CenterBkitnisVJXSDWULOV2372-97-72 10:14:00 Test Item Value Reference Range Interpretation Comments Macrocyte (test code = 1+ *ABN*(09/25/2011 A Macrocyte) 05:14:00) [facility] CenterCzxbeziLVYQJJNLXB5241-06-67 10:14:00 Test Item Value Reference Range Interpretation Comments Eosinophils # (test code = Eosinophils 0.2 <=0.5 N #) [facility] CenterRtudqnyBNTZMZSMCW4388-45-67 10:14:00 Test Item Value Reference Range Interpretation Comments Monocytes (test code = Monocytes) 13.2 2.0-12.0 H [facility] CenterRhaxprfHLOOZKDKCV6536-03-49 10:14:00 Test Item Value Reference Range Interpretation Comments Basophils # (test code = Basophils #) 0.0 <=0.2 N [facility] CenterQpyccakGZNDEJDTYU8446-61-59 10:14:00 Test Item Value Reference Range Interpretation Comments MPV (test code = MPV) 9.1 7.4-10.4 N [facility] CenterYhvrzkfYGASAUJQXT5656-51-11 10:14:00 Test Item Value Reference Range Interpretation Comments Platelet (test code = Platelet) 183 133-450 N [facility] CenterHsttfjyVGWWQYWPZL2035-70-15 10:14:00 Test Item Value Reference Range Interpretation Comments RDW (test code = RDW) 14.3 11.5-14.5 N [facility] CenterIzwnsvsZKNNPQJATQ5672-30-56 10:14:00 Test Item Value Reference Range Interpretation Comments MCHC (test code = MCHC) 34.1 32.0-36.0 N [facility] CenterTnagauwZHLMMUDVRB3563-96-80 10:14:00 Test Item Value Reference Range Interpretation Comments Hct (test code = Hct) 42.1 42.0-54.0 N [facility] CenterBxbpehaUZOAXKLQBI9477-89-53 10:14:00 Test Item Value Reference Range Interpretation Comments Hgb (test code = Hgb) 14.4 14.0-18.0 N [facility] CenterSsymborYDVQVSQPGJ3444-71-18 10:14:00 Test Item Value Reference Range Interpretation Comments WBC (test code = WBC) 6.4 3.7-10.4 N [facility] CenterJrzqtzgMSTEEJQYYQ3620-04-32 10:14:00 Test Item Value Reference Range Interpretation Comments MCV (test code = MCV) 99.3 80.0-94.0 H [facility] CenterEpptlvkYTGYWMJPZB3715-97-23 10:14:00 Test Item Value Reference Range Interpretation Comments RBC (test code = RBC) 4.24 4.70-6.10 L [facility] CenterQqzktojALNCXLQMQJ6420-84-67 10:14:00 Test Item Value Reference Range Interpretation Comments MCH (test code = MCH) 33.9 pg 27.0-31.0 H [facility] HospitalDrmdxhbNBJWLFBFD6076-86-06 10:14:00 Test Item Value Reference Range Interpretation Comments CO2 (test code = CO2) 30 24-32 N [facility] HospitalIzifygtTDEZGNTPN6361-43-83 10:14:00 Test Item Value Reference Range Interpretation Comments Calcium Lvl (test code = Calcium Lvl) 9.0 8.5-10.5 N [facility] HospitalQgwcxsnFMQRYBROZ1126-27-89 10:14:00 Test Item Value Reference Range Interpretation Comments Glucose Lvl (test code = Glucose Lvl) 86 70-99 N [facility] HospitalAqfdyzaWRUPFZMTM1618-35-97 10:14:00 Test Item Value Reference Range Interpretation Comments Potassium Lvl (test code = Potassium 4.4 3.5-5.1 N Lvl) [facility] HospitalQlhltmlFVTVCUQKQ1492-04-67 10:14:00 Test Item Value Reference Range Interpretation Comments Chloride Lvl (test code = Chloride Lvl) 107 95-109 N [facility] HospitalNyuczrwOLDCQJEUU9260-10-96 10:14:00 Test Item Value Reference Range Interpretation Comments BUN (test code = BUN) 13 7-22 N [facility] HospitalWccfjhzNNIDUEGKH1974-60-83 10:14:00 Test Item Value Reference Range Interpretation Comments Creatinine Lvl (test code = Creatinine 0.7 0.5-1.4 N Lvl) [facility] HospitalFfciezxDLGIKYOKM9368-85-24 10:14:00 Test Item Value Reference Range Interpretation Comments Sodium Lvl (test code = Sodium Lvl) 144 135-145 N [facility] HospitalUialkrzMOUBWWFGF1140-24-40 10:14:00 Test Item Value Reference Range Interpretation Comments AGAP (test code = AGAP) 11.4 10.0-20.0 N [facility] CenterDfzmutnAZRVVWORPF9868-56-14 10:14:00 Test Item Value Reference Range Interpretation Comments Basophils (test code = Basophils) 0.5 <=1.0 N [facility] CenterFkqobvtAIZJQICZZR9943-20-68 10:14:00 Test Item Value Reference Range Interpretation Comments Eosinophils (test code = Eosinophils) 3.1 <=4.0 N [facility] CenterJwdpvkjXCEPCHAOTW7015-82-49 10:14:00 Test Item Value Reference Range Interpretation Comments Segs-Bands # (test code = Segs-Bands #) 3.1 1.5-8.1 N [facility] CenterRmwjrrzCZIVQTHDDN6757-23-50 10:14:00 Test Item Value Reference Range Interpretation Comments Lymphocytes # (test code = Lymphocytes 2.3 1.0-5.5 N #) [facility] CenterCnyrouwGRNCNUXNNI1130-74-04 10:14:00 Test Item Value Reference Range Interpretation Comments Monocytes # (test code = Monocytes #) 0.9 <=0.8 H [facility] CenterDjkqmvxUVUCJEXTEE3129-16-00 10:14:00 Test Item Value Reference Range Interpretation Comments Segs (test code = Segs) 48.3 45.0-75.0 N [facility] CenterSzidavhWCANEHGVLU8641-42-65 10:14:00 Test Item Value Reference Range Interpretation Comments Lymphocytes (test code = Lymphocytes) 34.9 20.0-40.0 N [facility] CenterKnoooaeFNNEXVYHUG0221-22-26 10:14:00 Test Item Value Reference Range Interpretation Comments Macrocyte (test code = 1+ *ABN*(09/25/2011 A Macrocyte) 05:14:00) [facility] CenterEtkjqwjCOVPACYBYR6364-01-01 10:14:00 Test Item Value Reference Range Interpretation Comments Eosinophils # (test code = Eosinophils 0.2 <=0.5 N #) [facility] CenterXvmimxkYIGKKFIYCN1302-16-49 10:14:00 Test Item Value Reference Range Interpretation Comments Monocytes (test code = Monocytes) 13.2 2.0-12.0 H [facility] CenterYwdtllsEVPQNFXRTF3567-27-38 10:14:00 Test Item Value Reference Range Interpretation Comments Basophils # (test code = Basophils #) 0.0 <=0.2 N [facility] CenterIeokvtgMZHKYVKPVX4708-21-66 10:14:00 Test Item Value Reference Range Interpretation Comments MPV (test code = MPV) 9.1 7.4-10.4 N [facility] CenterCfdkvcmTGBGZZSQUW2452-14-96 10:14:00 Test Item Value Reference Range Interpretation Comments Platelet (test code = Platelet) 183 133-450 N [facility] CenterZorqwhpUQOBGFNGKP0800-10-93 10:14:00 Test Item Value Reference Range Interpretation Comments RDW (test code = RDW) 14.3 11.5-14.5 N [facility] CenterJcmbeepLBNREEFGAU7194-93-37 10:14:00 Test Item Value Reference Range Interpretation Comments MCHC (test code = MCHC) 34.1 32.0-36.0 N [facility] CenterUnwziqfEXEGSEUHZY4633-15-40 10:14:00 Test Item Value Reference Range Interpretation Comments Hct (test code = Hct) 42.1 42.0-54.0 N [facility] CenterXdnnmlaSJWTFFUKHW4018-38-07 10:14:00 Test Item Value Reference Range Interpretation Comments Hgb (test code = Hgb) 14.4 14.0-18.0 N [facility] CenterVifojecHJWWFWWKNU2771-78-01 10:14:00 Test Item Value Reference Range Interpretation Comments WBC (test code = WBC) 6.4 3.7-10.4 N [facility] CenterDfaodhpOSVLXWJLRX0467-34-13 10:14:00 Test Item Value Reference Range Interpretation Comments MCV (test code = MCV) 99.3 80.0-94.0 H [facility] CenterHemmlguWMCAIACOJN1342-53-25 10:14:00 Test Item Value Reference Range Interpretation Comments RBC (test code = RBC) 4.24 4.70-6.10 L [facility] CenterYkzqpnlRSXDQWWUAI8221-32-92 10:14:00 Test Item Value Reference Range Interpretation Comments MCH (test code = MCH) 33.9 pg 27.0-31.0 H [facility] HospitalAlhilvsFWENKPUXN5202-59-87 10:14:00 Test Item Value Reference Range Interpretation Comments CO2 (test code = CO2) 30 24-32 N [facility] HospitalHorcapaJHWIWJORK4169-12-83 10:14:00 Test Item Value Reference Range Interpretation Comments Calcium Lvl (test code = Calcium Lvl) 9.0 8.5-10.5 N [facility] HospitalZjmbgadVHAAHTGAU2270-13-86 10:14:00 Test Item Value Reference Range Interpretation Comments Glucose Lvl (test code = Glucose Lvl) 86 70-99 N [facility] HospitalEsxxpedTKAYMORVX7832-71-92 10:14:00 Test Item Value Reference Range Interpretation Comments Potassium Lvl (test code = Potassium 4.4 3.5-5.1 N Lvl) [facility] HospitalAmongmwXLSINKKUT9280-11-95 10:14:00 Test Item Value Reference Range Interpretation Comments Chloride Lvl (test code = Chloride Lvl) 107 95-109 N [facility] HospitalUxbckyiDKLBYIHHW0938-10-60 10:14:00 Test Item Value Reference Range Interpretation Comments BUN (test code = BUN) 13 7-22 N [facility] HospitalTobqtpfDDTEHZOYK5733-24-39 10:14:00 Test Item Value Reference Range Interpretation Comments Creatinine Lvl (test code = Creatinine 0.7 0.5-1.4 N Lvl) [facility] HospitalGrrwoseVHFNMSROV1437-36-90 10:14:00 Test Item Value Reference Range Interpretation Comments Sodium Lvl (test code = Sodium Lvl) 144 135-145 N [facility] HospitalXkfvjmkAQFERFCGZ9400-47-33 10:14:00 Test Item Value Reference Range Interpretation Comments AGAP (test code = AGAP) 11.4 10.0-20.0 N [facility] CenterCduarvuJXCQZUWFBS3941-09-26 10:14:00 Test Item Value Reference Range Interpretation Comments Basophils (test code = Basophils) 0.5 <=1.0 N [facility] CenterMrmdortNOXDWOVMNG2551-93-43 10:14:00 Test Item Value Reference Range Interpretation Comments Eosinophils (test code = Eosinophils) 3.1 <=4.0 N [facility] CenterCbgwnlsEXPTIXSZJR4781-52-01 10:14:00 Test Item Value Reference Range Interpretation Comments Segs-Bands # (test code = Segs-Bands #) 3.1 1.5-8.1 N [facility] CenterByeatvmYYFYUFBIYD4774-03-06 10:14:00 Test Item Value Reference Range Interpretation Comments Lymphocytes # (test code = Lymphocytes 2.3 1.0-5.5 N #) [facility] CenterNyopyvzPVDCODWRTO9815-78-21 10:14:00 Test Item Value Reference Range Interpretation Comments Monocytes # (test code = Monocytes #) 0.9 <=0.8 H [facility] CenterQzofiutEASMYTMDMN4692-75-53 10:14:00 Test Item Value Reference Range Interpretation Comments Segs (test code = Segs) 48.3 45.0-75.0 N [facility] CenterWuznnuuOLVLNTMYYP0088-79-94 10:14:00 Test Item Value Reference Range Interpretation Comments Lymphocytes (test code = Lymphocytes) 34.9 20.0-40.0 N [facility] CenterJowgmpwPYTSVORISW1326-10-84 10:14:00 Test Item Value Reference Range Interpretation Comments Macrocyte (test code = 1+ *ABN*(09/25/2011 A Macrocyte) 05:14:00) [facility] CenterHaimtykXHJMJWBYMS7172-61-73 10:14:00 Test Item Value Reference Range Interpretation Comments Eosinophils # (test code = Eosinophils 0.2 <=0.5 N #) [facility] CenterUegnjtcJJFLNNYSXI2235-15-52 10:14:00 Test Item Value Reference Range Interpretation Comments Monocytes (test code = Monocytes) 13.2 2.0-12.0 H [facility] CenterHmkrffiPJPFQAQXGX0086-99-42 10:14:00 Test Item Value Reference Range Interpretation Comments Basophils # (test code = Basophils #) 0.0 <=0.2 N [facility] CenterScggqhlCTQFLULGGD9296-21-11 10:14:00 Test Item Value Reference Range Interpretation Comments MPV (test code = MPV) 9.1 7.4-10.4 N [facility] CenterYtmnvizVRAOSFMMEK4543-92-27 10:14:00 Test Item Value Reference Range Interpretation Comments Platelet (test code = Platelet) 183 133-450 N [facility] CenterBtzqrnvPTFUXBHEAJ0649-38-12 10:14:00 Test Item Value Reference Range Interpretation Comments RDW (test code = RDW) 14.3 11.5-14.5 N [facility] CenterWgtvfcvCLCJIENCYP4529-53-88 10:14:00 Test Item Value Reference Range Interpretation Comments MCHC (test code = MCHC) 34.1 32.0-36.0 N [facility] CenterFssixanQCQWPKNSNF2977-79-81 10:14:00 Test Item Value Reference Range Interpretation Comments Hct (test code = Hct) 42.1 42.0-54.0 N [facility] CenterBvegvmjKEZXGPELYG4619-49-14 10:14:00 Test Item Value Reference Range Interpretation Comments Hgb (test code = Hgb) 14.4 14.0-18.0 N [facility] CenterCtdnfgfKXEYREOIYX9122-13-11 10:14:00 Test Item Value Reference Range Interpretation Comments WBC (test code = WBC) 6.4 3.7-10.4 N [facility] CenterZfkfbohTAKCOEJOBS6777-04-62 10:14:00 Test Item Value Reference Range Interpretation Comments MCV (test code = MCV) 99.3 80.0-94.0 H [facility] CenterFhbpevcHDIMKTVNQV9618-58-85 10:14:00 Test Item Value Reference Range Interpretation Comments RBC (test code = RBC) 4.24 4.70-6.10 L [facility] CenterYvvftiePRGWSPXFGV7564-44-40 10:14:00 Test Item Value Reference Range Interpretation Comments MCH (test code = MCH) 33.9 pg 27.0-31.0 H [facility] HospitalGqscbvjMNMUETEJM3126-66-58 10:14:00 Test Item Value Reference Range Interpretation Comments CO2 (test code = CO2) 30 24-32 N [facility] HospitalRttwvsxZRFDSMRAG1772-93-52 10:14:00 Test Item Value Reference Range Interpretation Comments Calcium Lvl (test code = Calcium Lvl) 9.0 8.5-10.5 N [facility] HospitalRybllupVHNIXZYTN0892-63-94 10:14:00 Test Item Value Reference Range Interpretation Comments Glucose Lvl (test code = Glucose Lvl) 86 70-99 N [facility] HospitalMbgkfojDDJFOKEIB6215-27-45 10:14:00 Test Item Value Reference Range Interpretation Comments Potassium Lvl (test code = Potassium 4.4 3.5-5.1 N Lvl) [facility] HospitalRtnzycjSPOLYKFYJ9535-29-75 10:14:00 Test Item Value Reference Range Interpretation Comments Chloride Lvl (test code = Chloride Lvl) 107 95-109 N [facility] HospitalGfwjnsbJWYKQCPYY4923-41-98 10:14:00 Test Item Value Reference Range Interpretation Comments BUN (test code = BUN) 13 7-22 N [facility] HospitalKggdguvMHQIJJLDQ5500-56-42 10:14:00 Test Item Value Reference Range Interpretation Comments Creatinine Lvl (test code = Creatinine 0.7 0.5-1.4 N Lvl) [facility] HospitalDvpemvlZZYWPVKMZ7213-44-08 10:14:00 Test Item Value Reference Range Interpretation Comments Sodium Lvl (test code = Sodium Lvl) 144 135-145 N [facility] HospitalJwxpphhAZGHVNOVJ7694-20-21 10:14:00 Test Item Value Reference Range Interpretation Comments AGAP (test code = AGAP) 11.4 10.0-20.0 N [facility] CenterPjwofgcJTMLHRZGDN7033-42-28 10:14:00 Test Item Value Reference Range Interpretation Comments Basophils (test code = Basophils) 0.5 <=1.0 N [facility] CenterLzgulikPRVTOGBQFN2075-87-31 10:14:00 Test Item Value Reference Range Interpretation Comments Eosinophils (test code = Eosinophils) 3.1 <=4.0 N [facility] CenterFyitunuJEZLJVPYJJ8786-77-87 10:14:00 Test Item Value Reference Range Interpretation Comments Segs-Bands # (test code = Segs-Bands #) 3.1 1.5-8.1 N [facility] CenterEslzhehDDRWFMAFAY0607-08-95 10:14:00 Test Item Value Reference Range Interpretation Comments Lymphocytes # (test code = Lymphocytes 2.3 1.0-5.5 N #) [facility] CenterCopmxyvUQBBWQGTVP9345-06-24 10:14:00 Test Item Value Reference Range Interpretation Comments Monocytes # (test code = Monocytes #) 0.9 <=0.8 H [facility] CenterDnzlzsgXMYEPHMROS0393-42-61 10:14:00 Test Item Value Reference Range Interpretation Comments Segs (test code = Segs) 48.3 45.0-75.0 N [facility] CenterSkicpyqZUNXDAWJCI7538-56-49 10:14:00 Test Item Value Reference Range Interpretation Comments Lymphocytes (test code = Lymphocytes) 34.9 20.0-40.0 N [facility] CenterDftsujbPGFBRZPONG0033-53-94 10:14:00 Test Item Value Reference Range Interpretation Comments Macrocyte (test code = 1+ *ABN*(09/25/2011 A Macrocyte) 05:14:00) [facility] CenterQidyrvdSHXYFFDTDO6875-71-22 10:14:00 Test Item Value Reference Range Interpretation Comments Eosinophils # (test code = Eosinophils 0.2 <=0.5 N #) [facility] CenterMjmzhfnWDMCQTPMFL6091-62-66 10:14:00 Test Item Value Reference Range Interpretation Comments Monocytes (test code = Monocytes) 13.2 2.0-12.0 H [facility] CenterXbdsrbaMLOQIRLZQC4439-48-47 10:14:00 Test Item Value Reference Range Interpretation Comments Basophils # (test code = Basophils #) 0.0 <=0.2 N [facility] CenterSsoqbwwUODRLSIHWO9515-07-34 10:14:00 Test Item Value Reference Range Interpretation Comments MPV (test code = MPV) 9.1 7.4-10.4 N [facility] CenterDpwtwrmVSHSGSQKOM3878-59-35 10:14:00 Test Item Value Reference Range Interpretation Comments Platelet (test code = Platelet) 183 133-450 N [facility] CenterWjnqtytVTJISGRHNC4528-05-58 10:14:00 Test Item Value Reference Range Interpretation Comments RDW (test code = RDW) 14.3 11.5-14.5 N [facility] CenterCtbzzykMRXMGYIDAB7457-47-12 10:14:00 Test Item Value Reference Range Interpretation Comments MCHC (test code = MCHC) 34.1 32.0-36.0 N [facility] CenterGqsnbuuMVCXUIDECA8648-25-75 10:14:00 Test Item Value Reference Range Interpretation Comments Hct (test code = Hct) 42.1 42.0-54.0 N [facility] CenterKimxjiaLFZEBNJOGN7379-12-66 10:14:00 Test Item Value Reference Range Interpretation Comments Hgb (test code = Hgb) 14.4 14.0-18.0 N [facility] CenterSzwpymtZPIVWEQBYB3316-81-31 10:14:00 Test Item Value Reference Range Interpretation Comments WBC (test code = WBC) 6.4 3.7-10.4 N [facility] CenterPisdmxfYXEXIDUBBC6676-62-51 10:14:00 Test Item Value Reference Range Interpretation Comments MCV (test code = MCV) 99.3 80.0-94.0 H [facility] CenterQdfmufxJJSRWPABIF3835-62-59 10:14:00 Test Item Value Reference Range Interpretation Comments RBC (test code = RBC) 4.24 4.70-6.10 L [facility] CenterLfzgcqzWTFVQENNNE6025-16-08 10:14:00 Test Item Value Reference Range Interpretation Comments MCH (test code = MCH) 33.9 pg 27.0-31.0 H [facility] HospitalRcuqocsYKQTCKWEV7732-28-18 10:14:00 Test Item Value Reference Range Interpretation Comments CO2 (test code = CO2) 30 24-32 N [facility] HospitalDnwculePDAIYTFFE8099-25-71 10:14:00 Test Item Value Reference Range Interpretation Comments Calcium Lvl (test code = Calcium Lvl) 9.0 8.5-10.5 N [facility] HospitalUamgtxdUOXCBAHKJ8547-10-28 10:14:00 Test Item Value Reference Range Interpretation Comments Glucose Lvl (test code = Glucose Lvl) 86 70-99 N [facility] HospitalHaujcgdHZOHLWSLP9392-76-33 10:14:00 Test Item Value Reference Range Interpretation Comments Potassium Lvl (test code = Potassium 4.4 3.5-5.1 N Lvl) [facility] HospitalPqmlozrYDFMIURXL9160-58-09 10:14:00 Test Item Value Reference Range Interpretation Comments Chloride Lvl (test code = Chloride Lvl) 107 95-109 N [facility] HospitalBkeygwoKPGCSTTDG2024-71-67 10:14:00 Test Item Value Reference Range Interpretation Comments BUN (test code = BUN) 13 7-22 N [facility] HospitalDhhttxwWVMMDYHET3918-57-64 10:14:00 Test Item Value Reference Range Interpretation Comments Creatinine Lvl (test code = Creatinine 0.7 0.5-1.4 N Lvl) [facility] HospitalAlfvhygCXDOAFUWR9287-21-45 10:14:00 Test Item Value Reference Range Interpretation Comments Sodium Lvl (test code = Sodium Lvl) 144 135-145 N [facility] HospitalWrqdnthECBATHVZH5566-37-70 10:14:00 Test Item Value Reference Range Interpretation Comments AGAP (test code = AGAP) 11.4 10.0-20.0 N [facility] CenterXtspujqWNVLWEWDIF4391-01-23 10:14:00 Test Item Value Reference Range Interpretation Comments Basophils (test code = 0.5 See_Comment N [Aut omated message] The Basophils) system which ge nerated this result tra nsmitted reference range : <=1.0. The reference r jessika was not used to int erpret this result as normal/abnormal . [facility] CenterZzpbdfuZHIHAOSRYF7686-33-94 10:14:00 Test Item Value Reference Range Interpretation Comments Eosinophils (test code = 3.1 See_Comment N [A utomated message] The Eosinophils) system which ge nerated this result tra nsmitted reference range : <=4.0. The reference r jessika was not used to int erpret this result as normal/abnormal . [facility] CenterAqrgdywTCXNSMGPTB7888-80-23 10:14:00 Test Item Value Reference Range Interpretation Comments Segs-Bands # (test code = Segs-Bands #) 3.1 1.5-8.1 N [facility] CenterVhpknueHMAZRQTXWV9947-17-77 10:14:00 Test Item Value Reference Range Interpretation Comments Lymphocytes # (test code = Lymphocytes 2.3 1.0-5.5 N #) [facility] CenterOlcyuuzLAPANCQSVZ9529-50-72 10:14:00 Test Item Value Reference Range Interpretation Comments Monocytes # (test code 0.9 See_Comment H [Aut omated message] The = Monocytes #) system which generated this result tra nsmitted reference range : <=0.8. The reference r jessika was not used to int erpret this result as normal/abnormal . [facility] CenterZdkjrleZVKNSMYSIQ4958-51-00 10:14:00 Test Item Value Reference Range Interpretation Comments Segs (test code = Segs) 48.3 45.0-75.0 N [facility] CenterUoraodtCVLKDVDJWU7388-65-38 10:14:00 Test Item Value Reference Range Interpretation Comments Lymphocytes (test code = Lymphocytes) 34.9 20.0-40.0 N [facility] CenterIcpdoczUQSLSEHXLV5975-35-66 10:14:00 Test Item Value Reference Range Interpretation Comments Macrocyte (test code = 1+ *ABN*(09/25/2011 A Macrocyte) 05:14:00) [facility] CenterOzzmcsnEKDJKEVMKF8293-92-27 10:14:00 Test Item Value Reference Range Interpretation Comments Eosinophils # (test code 0.2 See_Comment N [A utomated message] The = Eosinophils #) system whic h generated this result tra nsmitted reference range : <=0.5. The reference r jessika was not used to int erpret this result as normal/abnormal . [facility] CenterXzkgnelKCJFLAJFAO6232-40-83 10:14:00 Test Item Value Reference Range Interpretation Comments Monocytes (test code = Monocytes) 13.2 2.0-12.0 H [facility] CenterKtllfyjTIMXQMRGDK1547-71-98 10:14:00 Test Item Value Reference Range Interpretation Comments Basophils # (test code 0.0 See_Comment N [Aut omated message] The = Basophils #) system which generated this result tra nsmitted reference range : <=0.2. The reference r jessika was not used to int erpret this result as normal/abnormal . [facility] CenterYybhiifGZNGYJLVJB9093-28-81 10:14:00 Test Item Value Reference Range Interpretation Comments MPV (test code = MPV) 9.1 7.4-10.4 N [facility] CenterNuhblayARIOBTASDN1617-57-39 10:14:00 Test Item Value Reference Range Interpretation Comments Platelet (test code = Platelet) 183 133-450 N [facility] CenterXpjzrcjRUVYYJZIRK3365-97-29 10:14:00 Test Item Value Reference Range Interpretation Comments RDW (test code = RDW) 14.3 11.5-14.5 N [facility] CenterYcopidqAIJEGFAYTK7870-06-43 10:14:00 Test Item Value Reference Range Interpretation Comments MCHC (test code = MCHC) 34.1 32.0-36.0 N [facility] CenterCndzeneYTTTQYZVNV0020-34-73 10:14:00 Test Item Value Reference Range Interpretation Comments Hct (test code = Hct) 42.1 42.0-54.0 N [facility] CenterGysbgwfYMJAJPZRJE8261-20-92 10:14:00 Test Item Value Reference Range Interpretation Comments Hgb (test code = Hgb) 14.4 14.0-18.0 N [facility] CenterUqhbrdiPIGRCDNQNK6967-81-52 10:14:00 Test Item Value Reference Range Interpretation Comments WBC (test code = WBC) 6.4 3.7-10.4 N [facility] CenterUuiqglkVRDLLEPAHR7757-68-13 10:14:00 Test Item Value Reference Range Interpretation Comments MCV (test code = MCV) 99.3 80.0-94.0 H [facility] CenterXvandviHPYPWQBBAV3372-67-39 10:14:00 Test Item Value Reference Range Interpretation Comments RBC (test code = RBC) 4.24 4.70-6.10 L [facility] CenterXtnqnvyXORYHQGKPT8450-05-39 10:14:00 Test Item Value Reference Range Interpretation Comments MCH (test code = MCH) 33.9 pg 27.0-31.0 H [facility] HospitalEciikdeIMALFJDCZ1268-53-52 10:14:00 Test Item Value Reference Range Interpretation Comments CO2 (test code = CO2) 30 24-32 N [facility] HospitalGvxqffwPECETPFNT9646-22-76 10:14:00 Test Item Value Reference Range Interpretation Comments Calcium Lvl (test code = Calcium Lvl) 9.0 8.5-10.5 N [facility] HospitalFndzspyNCREABDJO3044-68-68 10:14:00 Test Item Value Reference Range Interpretation Comments Glucose Lvl (test code = Glucose Lvl) 86 70-99 N [facility] HospitalQaqulgqJEJVXKEMC1783-30-45 10:14:00 Test Item Value Reference Range Interpretation Comments Potassium Lvl (test code = Potassium 4.4 3.5-5.1 N Lvl) [facility] HospitalEzscjssZHOXNYARX7661-41-72 10:14:00 Test Item Value Reference Range Interpretation Comments Chloride Lvl (test code = Chloride Lvl) 107 95-109 N [facility] HospitalArmqysrQDJENCSAY3748-75-66 10:14:00 Test Item Value Reference Range Interpretation Comments BUN (test code = BUN) 13 7-22 N [facility] HospitalPxpoojrKSVLMLBRY2898-76-86 10:14:00 Test Item Value Reference Range Interpretation Comments Creatinine Lvl (test code = Creatinine 0.7 0.5-1.4 N Lvl) [facility] HospitalLjlicrpQFTSNLIAP9771-60-63 10:14:00 Test Item Value Reference Range Interpretation Comments Sodium Lvl (test code = Sodium Lvl) 144 135-145 N [facility] HospitalDyyizxgZTKYRKGQV0987-47-40 10:14:00 Test Item Value Reference Range Interpretation Comments AGAP (test code = AGAP) 11.4 10.0-20.0 N [facility] CenterZbjevdcFNYDNWVQAT8198-01-87 10:14:00 Test Item Value Reference Range Interpretation Comments Basophils (test code = 0.5 See_Comment N [Aut omated message] The Basophils) system which nerated this result tra nsmitted reference range : <=1.0. The reference r jessika was not used to int erpret this result as normal/abnormal . [facility] CenterTrpspmoSNENGMPHAD2092-63-50 10:14:00 Test Item Value Reference Range Interpretation Comments Eosinophils (test code = 3.1 See_Comment N [A utomated message] The Eosinophils) system which ge nerated this result tra nsmitted reference range : <=4.0. The reference r jessika was not used to int erpret this result as normal/abnormal . [facility] CenterQgpkngrNVDISYARTI7673-95-59 10:14:00 Test Item Value Reference Range Interpretation Comments Segs-Bands # (test code = Segs-Bands #) 3.1 1.5-8.1 N [facility] CenterQvuczgyGPHGYOWRNU1909-19-98 10:14:00 Test Item Value Reference Range Interpretation Comments Lymphocytes # (test code = Lymphocytes 2.3 1.0-5.5 N #) [facility] CenterBfwncaeSGCKLCMZUN9143-90-30 10:14:00 Test Item Value Reference Range Interpretation Comments Monocytes # (test code 0.9 See_Comment H [Aut omated message] The = Monocytes #) system which generated this result tra nsmitted reference range : <=0.8. The reference r jessika was not used to int erpret this result as normal/abnormal . [facility] CenterFqpokpvWKUPQRRYJX5066-01-89 10:14:00 Test Item Value Reference Range Interpretation Comments Segs (test code = Segs) 48.3 45.0-75.0 N [facility] CenterChxxpxfSKLIFZWSJE1268-77-75 10:14:00 Test Item Value Reference Range Interpretation Comments Lymphocytes (test code = Lymphocytes) 34.9 20.0-40.0 N [facility] CenterUgdwlceVORZLZBKCB6940-16-64 10:14:00 Test Item Value Reference Range Interpretation Comments Macrocyte (test code = 1+ *ABN*(09/25/2011 A Macrocyte) 05:14:00) [facility] CenterSxrjcfiFZNKCTBMBT5809-99-56 10:14:00 Test Item Value Reference Range Interpretation Comments Eosinophils # (test code 0.2 See_Comment N [A utomated message] The = Eosinophils #) system [facility] h generated this result tra nsmitted reference range : <=0.5. The reference r jessika was not used to int erpret this result as normal/abnormal . [facility] CenterPhmovlcICTNXKZZDA0743-96-98 10:14:00 Test Item Value Reference Range Interpretation Comments Monocytes (test code = Monocytes) 13.2 2.0-12.0 H [facility] CenterTfthyytQLRVOSUNIX0311-82-53 10:14:00 Test Item Value Reference Range Interpretation Comments Basophils # (test code 0.0 See_Comment N [Aut omated message] The = Basophils #) system which generated this result tra nsmitted reference range : <=0.2. The reference r jessika was not used to int erpret this result as normal/abnormal . [facility] CenterVcuhrxsLVRVFHCQLR3093-82-07 10:14:00 Test Item Value Reference Range Interpretation Comments MPV (test code = MPV) 9.1 7.4-10.4 N [facility] CenterNfidmreVCZFQVOWBT2570-72-03 10:14:00 Test Item Value Reference Range Interpretation Comments Platelet (test code = Platelet) 183 133-450 N [facility] CenterYctqoiyDTOHAZLLNL6903-27-12 10:14:00 Test Item Value Reference Range Interpretation Comments RDW (test code = RDW) 14.3 11.5-14.5 N [facility] CenterWkuludyUFXIRIISJS8683-06-51 10:14:00 Test Item Value Reference Range Interpretation Comments MCHC (test code = MCHC) 34.1 32.0-36.0 N [facility] CenterRjnwvvaRLACJTOEUK5367-16-24 10:14:00 Test Item Value Reference Range Interpretation Comments Hct (test code = Hct) 42.1 42.0-54.0 N [facility] CenterEmgwoeqEJBAFUUGXG0606-26-06 10:14:00 Test Item Value Reference Range Interpretation Comments Hgb (test code = Hgb) 14.4 14.0-18.0 N [facility] CenterEkynwdvLAAIOOBFHU9130-39-54 10:14:00 Test Item Value Reference Range Interpretation Comments WBC (test code = WBC) 6.4 3.7-10.4 N [facility] CenterStxgyjsJGJBZJKWSD2839-85-20 10:14:00 Test Item Value Reference Range Interpretation Comments MCV (test code = MCV) 99.3 80.0-94.0 H [facility] CenterGemmmpgYXFTKLZZSR0132-76-36 10:14:00 Test Item Value Reference Range Interpretation Comments RBC (test code = RBC) 4.24 4.70-6.10 L [facility] CenterMzbqxhpNYCUXPJPHC6054-99-61 10:14:00 Test Item Value Reference Range Interpretation Comments MCH (test code = MCH) 33.9 pg 27.0-31.0 H [facility] HospitalJacprbyNFQAUPMNE4436-63-09 10:14:00 Test Item Value Reference Range Interpretation Comments CO2 (test code = CO2) 30 24-32 N [facility] HospitalNjufkowYKRTBBGYC2408-38-79 10:14:00 Test Item Value Reference Range Interpretation Comments Calcium Lvl (test code = Calcium Lvl) 9.0 8.5-10.5 N [facility] HospitalDbqnawsOXSYMVJZE8699-11-19 10:14:00 Test Item Value Reference Range Interpretation Comments Glucose Lvl (test code = Glucose Lvl) 86 70-99 N [facility] HospitalJhpnqheGHOZRBBWS5309-47-11 10:14:00 Test Item Value Reference Range Interpretation Comments Potassium Lvl (test code = Potassium 4.4 3.5-5.1 N Lvl) [facility] HospitalAjwybrhDBJDGIMFI7786-05-90 10:14:00 Test Item Value Reference Range Interpretation Comments Chloride Lvl (test code = Chloride Lvl) 107 95-109 N [facility] HospitalCgldxksDCMGUKBTM1445-90-14 10:14:00 Test Item Value Reference Range Interpretation Comments BUN (test code = BUN) 13 7-22 N [facility] HospitalZtpvnggMTZUNRZXT0592-50-40 10:14:00 Test Item Value Reference Range Interpretation Comments Creatinine Lvl (test code = Creatinine 0.7 0.5-1.4 N Lvl) [facility] HospitalHzrgrunHEWWHZYFL0493-03-31 10:14:00 Test Item Value Reference Range Interpretation Comments Sodium Lvl (test code = Sodium Lvl) 144 135-145 N [facility] HospitalPafgkraGILSNRRUZ4525-96-77 10:14:00 Test Item Value Reference Range Interpretation Comments AGAP (test code = AGAP) 11.4 10.0-20.0 N [facility] CenterZlzehknYTYVBLSOXH3699-19-33 10:14:00 Test Item Value Reference Range Interpretation Comments Basophils (test code = 0.5 See_Comment N [Aut omated message] The Basophils) system which nerated this result tra nsmitted reference range : <=1.0. The reference r jessika was not used to int erpret this result as normal/abnormal . [facility] CenterEonkxriXTSPMCGMNO8269-53-70 10:14:00 Test Item Value Reference Range Interpretation Comments Eosinophils (test code = 3.1 See_Comment N [A utomated message] The Eosinophils) system which ge nerated this result tra nsmitted reference range : <=4.0. The reference r jessika was not used to int erpret this result as normal/abnormal . [facility] CenterJuxbvzwGBRBRYXGNQ9909-14-46 10:14:00 Test Item Value Reference Range Interpretation Comments Segs-Bands # (test code = Segs-Bands #) 3.1 1.5-8.1 N [facility] CenterTvujpoqMZOLBPYLPO4332-88-82 10:14:00 Test Item Value Reference Range Interpretation Comments Lymphocytes # (test code = Lymphocytes 2.3 1.0-5.5 N #) [facility] CenterHdojjhjVGBERYWGDX7856-11-31 10:14:00 Test Item Value Reference Range Interpretation Comments Monocytes # (test code 0.9 See_Comment H [Aut omated message] The = Monocytes #) system which generated this result tra nsmitted reference range : <=0.8. The reference r jessika was not used to int erpret this result as normal/abnormal . [facility] CenterMtiqznzDGEXWCERDW2369-41-46 10:14:00 Test Item Value Reference Range Interpretation Comments Segs (test code = Segs) 48.3 45.0-75.0 N [facility] CenterHapzqcwDHESSJLOYZ7418-48-69 10:14:00 Test Item Value Reference Range Interpretation Comments Lymphocytes (test code = Lymphocytes) 34.9 20.0-40.0 N [facility] CenterFggljdpKPABIFSEZA4912-03-24 10:14:00 Test Item Value Reference Range Interpretation Comments Macrocyte (test code = 1+ *ABN*(09/25/2011 A Macrocyte) 05:14:00) [facility] CenterOaobxuhMPADBFTSOZ9483-52-36 10:14:00 Test Item Value Reference Range Interpretation Comments Eosinophils # (test code 0.2 See_Comment N [A utomated message] The = Eosinophils #) system whic h generated this result tra nsmitted reference range : <=0.5. The reference r jessika was not used to int erpret this result as normal/abnormal . [facility] CenterFduvlngKQBFQDOHHD9224-63-75 10:14:00 Test Item Value Reference Range Interpretation Comments Monocytes (test code = Monocytes) 13.2 2.0-12.0 H [facility] CenterMxgtignVAUACACXCN2102-61-82 10:14:00 Test Item Value Reference Range Interpretation Comments Basophils # (test code 0.0 See_Comment N [Aut omated message] The = Basophils #) system which generated this result tra nsmitted reference range : <=0.2. The reference r jessika was not used to int erpret this result as normal/abnormal . [facility] CenterTvnzpwhTBMNCXJHTQ2434-17-41 10:14:00 Test Item Value Reference Range Interpretation Comments MPV (test code = MPV) 9.1 7.4-10.4 N [facility] CenterQaiqdriSDIWFBWCYN8944-52-91 10:14:00 Test Item Value Reference Range Interpretation Comments Platelet (test code = Platelet) 183 133-450 N [facility] CenterJslhmbaUFEQHRMADN3640-40-42 10:14:00 Test Item Value Reference Range Interpretation Comments RDW (test code = RDW) 14.3 11.5-14.5 N [facility] CenterGghhplwEVCQTIRFKU9801-24-89 10:14:00 Test Item Value Reference Range Interpretation Comments MCHC (test code = MCHC) 34.1 32.0-36.0 N [facility] CenterPzxspuwYZIWNCEZHV7603-30-96 10:14:00 Test Item Value Reference Range Interpretation Comments Hct (test code = Hct) 42.1 42.0-54.0 N [facility] CenterMsnhajuDNRONHIUZO9178-94-99 10:14:00 Test Item Value Reference Range Interpretation Comments Hgb (test code = Hgb) 14.4 14.0-18.0 N [facility] CenterHtqtumbLMGCTTPGXW9547-07-52 10:14:00 Test Item Value Reference Range Interpretation Comments WBC (test code = WBC) 6.4 3.7-10.4 N [facility] CenterQjvyzytQCQMZYLDGO0044-46-13 10:14:00 Test Item Value Reference Range Interpretation Comments MCV (test code = MCV) 99.3 80.0-94.0 H [facility] CenterQanogmcPQRIZXXONG5043-42-47 10:14:00 Test Item Value Reference Range Interpretation Comments RBC (test code = RBC) 4.24 4.70-6.10 L [facility] CenterWximptlNEDMWZZCTA1981-36-51 10:14:00 Test Item Value Reference Range Interpretation Comments MCH (test code = MCH) 33.9 pg 27.0-31.0 [facility] HospitalVsvccbvGMASWJUGE6014-78-49 10:14:00 Test Item Value Reference Range Interpretation Comments CO2 (test code = CO2) 30 24-32 N [facility] HospitalGlpttacJVHRIMQEF7355-48-07 10:14:00 Test Item Value Reference Range Interpretation Comments Calcium Lvl (test code = Calcium Lvl) 9.0 8.5-10.5 N [facility] HospitalTwslgvzJFCRSALAX4714-20-46 10:14:00 Test Item Value Reference Range Interpretation Comments Glucose Lvl (test code = Glucose Lvl) 86 70-99 N [facility] HospitalJecmxuySOYKCCBOM1816-04-17 10:14:00 Test Item Value Reference Range Interpretation Comments Potassium Lvl (test code = Potassium 4.4 3.5-5.1 N Lvl) [facility] HospitalJnbteimDKKFLMATS9408-06-55 10:14:00 Test Item Value Reference Range Interpretation Comments Chloride Lvl (test code = Chloride Lvl) 107 95-109 N [facility] HospitalTehlqtdTQGMGPYGX9497-87-25 10:14:00 Test Item Value Reference Range Interpretation Comments BUN (test code = BUN) 13 7-22 N [facility] HospitalYepxwwsSGDIRWYTP2441-20-69 10:14:00 Test Item Value Reference Range Interpretation Comments Creatinine Lvl (test code = Creatinine 0.7 0.5-1.4 N Lvl) [facility] HospitalJqggwexEHOVPNUCA9925-27-02 10:14:00 Test Item Value Reference Range Interpretation Comments Sodium Lvl (test code = Sodium Lvl) 144 135-145 N [facility] HospitalFtazuwzKHWAUJOGG8017-09-73 10:14:00 Test Item Value Reference Range Interpretation Comments AGAP (test code = AGAP) 11.4 10.0-20.0 N [facility] CenterXzvwhufTAYGDCPXLJ9368-86-56 10:14:00 Test Item Value Reference Range Interpretation Comments Basophils (test code = 0.5 See_Comment N [Aut omated message] The Basophils) system which nerated this result tra nsmitted reference range : <=1.0. The reference r jessika was not used to int erpret this result as normal/abnormal . [facility] CenterNyorhhtWTIRRSVUJM2841-33-00 10:14:00 Test Item Value Reference Range Interpretation Comments Eosinophils (test code = 3.1 See_Comment N [A utomated message] The Eosinophils) system which ge nerated this result tra nsmitted reference range : <=4.0. The reference r jessika was not used to int erpret this result as normal/abnormal . [facility] HospitalBcysywvWAPEZUKNK5744-94-53 10:14:00 Test Item Value Reference Range Interpretation Comments CO2 (test code = CO2) 30 24-32 N [facility] HospitalYvbvbaxHXQMJXJNB1241-28-10 10:14:00 Test Item Value Reference Range Interpretation Comments Calcium Lvl (test code = Calcium Lvl) 9.0 8.5-10.5 N [facility] HospitalTffbkblYHWFQLBUC2942-09-01 10:14:00 Test Item Value Reference Range Interpretation Comments Glucose Lvl (test code = Glucose Lvl) 86 70-99 N [facility] HospitalKbyzugvHXQSFAJMC4829-33-94 10:14:00 Test Item Value Reference Range Interpretation Comments Potassium Lvl (test code = Potassium 4.4 3.5-5.1 N Lvl) [facility] CenterAduqvvoOIXTYFCTVR4422-53-72 10:14:00 Test Item Value Reference Range Interpretation Comments Segs-Bands # (test code = Segs-Bands #) 3.1 1.5-8.1 N [facility] HospitalBxnvssyKZTBREUMJ8389-37-96 10:14:00 Test Item Value Reference Range Interpretation Comments Chloride Lvl (test code = Chloride Lvl) 107 95-109 N [facility] HospitalLuutebtLTWQBQMOY5631-06-61 10:14:00 Test Item Value Reference Range Interpretation Comments BUN (test code = BUN) 13 7-22 N [facility] HospitalXvfqtikVMVASCQLY6153-28-24 10:14:00 Test Item Value Reference Range Interpretation Comments Creatinine Lvl (test code = Creatinine 0.7 0.5-1.4 N Lvl) [facility] HospitalXeodwalRJECSMZZQ7669-24-24 10:14:00 Test Item Value Reference Range Interpretation Comments Sodium Lvl (test code = Sodium Lvl) 144 135-145 N [facility] HospitalDrrezfoCCWHRVYRJ0470-88-06 10:14:00 Test Item Value Reference Range Interpretation Comments AGAP (test code = AGAP) 11.4 10.0-20.0 N [facility] CenterGfryrxyIAPBGSXMTU3688-15-03 10:14:00 Test Item Value Reference Range Interpretation Comments Basophils (test code = 0.5 See_Comment N [Aut omated message] The Basophils) system which nerated this result tra nsmitted reference range : <=1.0. The reference r jessika was not used to int erpret this result as normal/abnormal . [facility] CenterAjgeikoLDNVWWCSXS5545-74-04 10:14:00 Test Item Value Reference Range Interpretation Comments Eosinophils (test code = 3.1 See_Comment N [A utomated message] The Eosinophils) system which ge nerated this result tra nsmitted reference range : <=4.0. The reference r jessika was not used to int erpret this result as normal/abnormal . [facility] CenterPfveqfdMDLOSAVDQP7753-46-40 10:14:00 Test Item Value Reference Range Interpretation Comments Segs-Bands # (test code = Segs-Bands #) 3.1 1.5-8.1 N [facility] CenterStsbpskCORSOHQZGX4710-85-59 10:14:00 Test Item Value Reference Range Interpretation Comments Lymphocytes # (test code = Lymphocytes 2.3 1.0-5.5 N #) [facility] CenterYlucixaZFDBEYIDIH9884-00-12 10:14:00 Test Item Value Reference Range Interpretation Comments Monocytes # (test code 0.9 See_Comment H [Aut omated message] The = Monocytes #) system which generated this result tra nsmitted reference range : <=0.8. The reference r jessika was not used to int erpret this result as normal/abnormal . [facility] CenterWmxjfouDDNCJDSKNZ9423-06-99 10:14:00 Test Item Value Reference Range Interpretation Comments Lymphocytes # (test code = Lymphocytes 2.3 1.0-5.5 N #) [facility] CenterZhiynpaFJTQGZXEEB9082-25-36 10:14:00 Test Item Value Reference Range Interpretation Comments Segs (test code = Segs) 48.3 45.0-75.0 N [facility] CenterZynezlzLLNLSWYESZ2515-65-69 10:14:00 Test Item Value Reference Range Interpretation Comments Lymphocytes (test code = Lymphocytes) 34.9 20.0-40.0 N [facility] CenterJgqawvgMHHAAKQVUB8729-72-59 10:14:00 Test Item Value Reference Range Interpretation Comments Macrocyte (test code = 1+ *ABN*(09/25/2011 A Macrocyte) 05:14:00) [facility] CenterOqacsfbVPZSVVDVUT4291-93-56 10:14:00 Test Item Value Reference Range Interpretation Comments Eosinophils # (test code 0.2 See_Comment N [A utomated message] The = Eosinophils #) system whic h generated this result tra nsmitted reference range : <=0.5. The reference r jessika was not used to int erpret this result as normal/abnormal . [facility] CenterIuwubleOHWVFMCBNR2477-70-24 10:14:00 Test Item Value Reference Range Interpretation Comments Monocytes (test code = Monocytes) 13.2 2.0-12.0 H [facility] CenterZcyapdiWLTOTFVHZZ0984-41-19 10:14:00 Test Item Value Reference Range Interpretation Comments Basophils # (test code 0.0 See_Comment N [Aut omated message] The = Basophils #) system which generated this result tra nsmitted reference range : <=0.2. The reference r jessika was not used to int erpret this result as normal/abnormal . [facility] CenterCqsttikKUNJJBXMRY7394-82-80 10:14:00 Test Item Value Reference Range Interpretation Comments MPV (test code = MPV) 9.1 7.4-10.4 N [facility] CenterSfmbibmMVVCCFZLMW0627-96-64 10:14:00 Test Item Value Reference Range Interpretation Comments Platelet (test code = Platelet) 183 133-450 N [facility] CenterFbxzjgkUAORBGZWKA4392-71-47 10:14:00 Test Item Value Reference Range Interpretation Comments RDW (test code = RDW) 14.3 11.5-14.5 N [facility] CenterRalvasqAMGXDRLGXT8635-79-71 10:14:00 Test Item Value Reference Range Interpretation Comments MCHC (test code = MCHC) 34.1 32.0-36.0 N [facility] CenterIhbqlcmDOXJBLZNKP0771-61-59 10:14:00 Test Item Value Reference Range Interpretation Comments Monocytes # (test code 0.9 See_Comment H [Aut omated message] The = Monocytes #) system which generated this result tra nsmitted reference range : <=0.8. The reference r jessika was not used to int erpret this result as normal/abnormal . [facility] CenterCmldvxcADKPWKYRDP0515-84-41 10:14:00 Test Item Value Reference Range Interpretation Comments Hct (test code = Hct) 42.1 42.0-54.0 N [facility] CenterHxaspphRVOISPDDXX2455-57-84 10:14:00 Test Item Value Reference Range Interpretation Comments Hgb (test code = Hgb) 14.4 14.0-18.0 N [facility] CenterOenfbnnZVDPRSNLFP2587-66-36 10:14:00 Test Item Value Reference Range Interpretation Comments WBC (test code = WBC) 6.4 3.7-10.4 N [facility] CenterPnrfskpXMKNQTIXYD5487-49-76 10:14:00 Test Item Value Reference Range Interpretation Comments MCV (test code = MCV) 99.3 80.0-94.0 H [facility] CenterZzazwugWFRJJUNMUN4165-72-07 10:14:00 Test Item Value Reference Range Interpretation Comments RBC (test code = RBC) 4.24 4.70-6.10 L [facility] CenterZlhknekGSMKIUYMZB6487-15-11 10:14:00 Test Item Value Reference Range Interpretation Comments MCH (test code = MCH) 33.9 pg 27.0-31.0 H [facility] CenterPxuqwzlODXYXGVRUT0369-38-27 10:14:00 Test Item Value Reference Range Interpretation Comments Segs (test code = Segs) 48.3 45.0-75.0 N [facility] CenterYoozbpbUZXEZGUVLU7820-94-35 10:14:00 Test Item Value Reference Range Interpretation Comments Lymphocytes (test code = Lymphocytes) 34.9 20.0-40.0 N [facility] CenterOvejngpQWGNBQCIPZ8267-54-93 10:14:00 Test Item Value Reference Range Interpretation Comments Macrocyte (test code = 1+ *ABN*(09/25/2011 A Macrocyte) 05:14:00) [facility] CenterGjfgawfEDVIMECRPF0225-26-67 10:14:00 Test Item Value Reference Range Interpretation Comments Eosinophils # (test code 0.2 See_Comment N [A utomated message] The = Eosinophils #) system wh h generated this result tra nsmitted reference range : <=0.5. The reference r jessika was not used to int erpret this result as normal/abnormal . [facility] CenterEvxjzyzGUWFYGMJJV4194-92-21 10:14:00 Test Item Value Reference Range Interpretation Comments Monocytes (test code = Monocytes) 13.2 2.0-12.0 H [facility] CenterHbslcgvTNRXXXXRUQ1565-42-68 10:14:00 Test Item Value Reference Range Interpretation Comments Basophils # (test code 0.0 See_Comment N [Aut omated message] The = Basophils #) system which generated this result tra nsmitted reference range : <=0.2. The reference r jessika was not used to int erpret this result as normal/abnormal . [facility] CenterLuebofsBPJDMUCRRM9942-07-20 10:14:00 Test Item Value Reference Range Interpretation Comments MPV (test code = MPV) 9.1 7.4-10.4 N [facility] CenterDitzxjwKWNQIYDTNZ6033-87-71 10:14:00 Test Item Value Reference Range Interpretation Comments Platelet (test code = Platelet) 183 133-450 N [facility] CenterQlqsvtzXPKKVCCLMP1952-31-59 10:14:00 Test Item Value Reference Range Interpretation Comments RDW (test code = RDW) 14.3 11.5-14.5 N [facility] CenterNhealfzCEYNYHUMXF0065-17-45 10:14:00 Test Item Value Reference Range Interpretation Comments MCHC (test code = MCHC) 34.1 32.0-36.0 N [facility] CenterUjkdpvhKAGMWNFLER5477-17-91 10:14:00 Test Item Value Reference Range Interpretation Comments Hct (test code = Hct) 42.1 42.0-54.0 N [facility] CenterGljsgvbIWHFLBJKJY6418-26-15 10:14:00 Test Item Value Reference Range Interpretation Comments Hgb (test code = Hgb) 14.4 14.0-18.0 N [facility] CenterTexqpdtFIZJJADLKH4369-03-75 10:14:00 Test Item Value Reference Range Interpretation Comments WBC (test code = WBC) 6.4 3.7-10.4 N [facility] CenterIkrdnzgCIBCXGHKMS6672-77-82 10:14:00 Test Item Value Reference Range Interpretation Comments MCV (test code = MCV) 99.3 80.0-94.0 H [facility] HospitalNlalintNYVMMFKTN9503-69-83 10:14:00 Test Item Value Reference Range Interpretation Comments CO2 (test code = CO2) 30 24-32 N [facility] HospitalKfwyuqaLQFJMEYQX9897-94-94 10:14:00 Test Item Value Reference Range Interpretation Comments Calcium Lvl (test code = Calcium Lvl) 9.0 8.5-10.5 N [facility] HospitalNzibwvbRIEBSLKIL0611-68-85 10:14:00 Test Item Value Reference Range Interpretation Comments Glucose Lvl (test code = Glucose Lvl) 86 70-99 N [facility] HospitalGecofptITQWVBKYW6620-35-04 10:14:00 Test Item Value Reference Range Interpretation Comments Potassium Lvl (test code = Potassium 4.4 3.5-5.1 N Lvl) [facility] HospitalVmyepwwNPTVFUVOJ2035-93-42 10:14:00 Test Item Value Reference Range Interpretation Comments Chloride Lvl (test code = Chloride Lvl) 107 95-109 N [facility] HospitalOsslmxfSSYVHOJLU6592-61-56 10:14:00 Test Item Value Reference Range Interpretation Comments BUN (test code = BUN) 13 7-22 N [facility] HospitalGahosuaFRLFDOBDZ2069-33-48 10:14:00 Test Item Value Reference Range Interpretation Comments Creatinine Lvl (test code = Creatinine 0.7 0.5-1.4 N Lvl) [facility] HospitalCilgxdnXHQJHIXAP5600-39-75 10:14:00 Test Item Value Reference Range Interpretation Comments Sodium Lvl (test code = Sodium Lvl) 144 135-145 N [facility] HospitalVxpwzwrDTMOGYSTE5707-29-70 10:14:00 Test Item Value Reference Range Interpretation Comments AGAP (test code = AGAP) 11.4 10.0-20.0 N [facility] CenterWzuyjubPONDTPBMZI4694-72-94 10:14:00 Test Item Value Reference Range Interpretation Comments Basophils (test code = 0.5 See_Comment N [Aut omated message] The Basophils) system which ge nerated this result tra nsmitted reference range : <=1.0. The reference r jessika was not used to int erpret this result as normal/abnormal . [facility] CenterGsdkkrsEUXABABASH1108-15-25 10:14:00 Test Item Value Reference Range Interpretation Comments RBC (test code = RBC) 4.24 4.70-6.10 L [facility] CenterQbszouaIJVPEJNOPI5923-23-15 10:14:00 Test Item Value Reference Range Interpretation Comments Eosinophils (test code = 3.1 See_Comment N [A utomated message] The Eosinophils) system which ge nerated this result tra nsmitted reference range : <=4.0. The reference r jessika was not used to int erpret this result as normal/abnormal . [facility] CenterHdbcmywEQXWVNTIXB1455-80-11 10:14:00 Test Item Value Reference Range Interpretation Comments Segs-Bands # (test code = Segs-Bands #) 3.1 1.5-8.1 N [facility] CenterEipugdsIIZAIRBWHM4595-02-26 10:14:00 Test Item Value Reference Range Interpretation Comments Lymphocytes # (test code = Lymphocytes 2.3 1.0-5.5 N #) [facility] CenterBxhznjeYEXEAIAEFF2542-75-91 10:14:00 Test Item Value Reference Range Interpretation Comments Monocytes # (test code 0.9 See_Comment H [Aut omated message] The = Monocytes #) system which generated this result tra nsmitted reference range : <=0.8. The reference r jessika was not used to int erpret this result as normal/abnormal . [facility] CenterCuzlzdhHCCBXCYYED3101-97-30 10:14:00 Test Item Value Reference Range Interpretation Comments Segs (test code = Segs) 48.3 45.0-75.0 N [facility] CenterKwruzllZBOARLRUJP1774-89-77 10:14:00 Test Item Value Reference Range Interpretation Comments Lymphocytes (test code = Lymphocytes) 34.9 20.0-40.0 N [facility] CenterCdnozrnNMCBZYMBWV9809-47-94 10:14:00 Test Item Value Reference Range Interpretation Comments Macrocyte (test code = 1+ *ABN*(09/25/2011 A Macrocyte) 05:14:00) [facility] CenterOgvieykQXZOHYRUSU8432-79-34 10:14:00 Test Item Value Reference Range Interpretation Comments Eosinophils # (test code 0.2 See_Comment N [A utomated message] The = Eosinophils #) system whic h generated this result tra nsmitted reference range : <=0.5. The reference r jessika was not used to int erpret this result as normal/abnormal . [facility] CenterHknkvyeTNHXETJKGX1413-82-05 10:14:00 Test Item Value Reference Range Interpretation Comments Monocytes (test code = Monocytes) 13.2 2.0-12.0 H [facility] CenterHytpsstRUXJXIKHNJ8903-98-83 10:14:00 Test Item Value Reference Range Interpretation Comments Basophils # (test code 0.0 See_Comment N [Aut omated message] The = Basophils #) system which generated this result tra nsmitted reference range : <=0.2. The reference r jessika was not used to int erpret this result as normal/abnormal . [facility] CenterYiazsvbSXRKBZGGRK5387-38-89 10:14:00 Test Item Value Reference Range Interpretation Comments MCH (test code = MCH) 33.9 pg 27.0-31.0 H [facility] CenterOvszrnlEJMDHRSXHX8921-84-19 10:14:00 Test Item Value Reference Range Interpretation Comments MPV (test code = MPV) 9.1 7.4-10.4 N [facility] CenterLyomqcqXVEDMRHMSV6699-72-78 10:14:00 Test Item Value Reference Range Interpretation Comments Platelet (test code = Platelet) 183 133-450 N [facility] CenterKmbcpjmNRLTTUCGFU5041-01-79 10:14:00 Test Item Value Reference Range Interpretation Comments RDW (test code = RDW) 14.3 11.5-14.5 N [facility] CenterMavrsslNNXKWAOPNY1419-70-71 10:14:00 Test Item Value Reference Range Interpretation Comments MCHC (test code = MCHC) 34.1 32.0-36.0 N [facility] CenterHyzxmmbJYRDGFJKAK8385-37-07 10:14:00 Test Item Value Reference Range Interpretation Comments Hct (test code = Hct) 42.1 42.0-54.0 N [facility] CenterZydaajzMJVUQWSHPP5795-93-38 10:14:00 Test Item Value Reference Range Interpretation Comments Hgb (test code = Hgb) 14.4 14.0-18.0 N [facility] CenterTaxnutyUHHNKXRIFE9632-58-43 10:14:00 Test Item Value Reference Range Interpretation Comments WBC (test code = WBC) 6.4 3.7-10.4 N [facility] CenterTpwcldkUNPRMMFNRY1953-16-52 10:14:00 Test Item Value Reference Range Interpretation Comments MCV (test code = MCV) 99.3 80.0-94.0 H [facility] CenterDxbawlwSGRSTKHLXU3755-94-33 10:14:00 Test Item Value Reference Range Interpretation Comments RBC (test code = RBC) 4.24 4.70-6.10 L [facility] CenterFegtbcpTAGVOMQATN5273-50-27 10:14:00 Test Item Value Reference Range Interpretation Comments MCH (test code = MCH) 33.9 pg 27.0-31.0 H [facility] CenterMyheyotDUBJUABNYF2652-65-91 09:04:00 Test Item Value Reference Range Interpretation Comments Macrocyte (test code = 1+ *ABN*(09/18/2011 A Macrocyte) 04:04:00) [facility] CenterZaimtvsNLIYITWROS0329-73-99 09:04:00 Test Item Value Reference Range Interpretation Comments Monocytes # (test code 0.9 See_Comment H [Aut omated message] The = Monocytes #) system which generated this result tra nsmitted reference range : <=0.8. The reference r jessika was not used to int erpret this result as normal/abnormal . [facility] CenterXspbwqeQGUQBBVVPZ0719-48-71 09:04:00 Test Item Value Reference Range Interpretation Comments Lymphocytes # (test code = Lymphocytes 2.1 1.0-5.5 N #) [facility] CenterKeywmjkUFGIANFJUG4772-34-45 09:04:00 Test Item Value Reference Range Interpretation Comments Segs (test code = Segs) 54.6 45.0-75.0 N [facility] CenterAxszhthDSUNFGGROK2085-21-10 09:04:00 Test Item Value Reference Range Interpretation Comments Eosinophils # (test code 0.2 See_Comment N [A utomated message] The = Eosinophils #) system whic h generated this result tra nsmitted reference range : <=0.5. The reference r jessika was not used to int erpret this result as normal/abnormal . [facility] CenterTkvlppzFDGJSOOUIH2992-92-45 09:04:00 Test Item Value Reference Range Interpretation Comments Eosinophils (test code = 2.3 See_Comment N [A utomated message] The Eosinophils) system which ge nerated this result tra nsmitted reference range : <=4.0. The reference r jessika was not used to int erpret this result as normal/abnormal . [facility] CenterWdyierqGZTXGHOOCR3214-60-82 09:04:00 Test Item Value Reference Range Interpretation Comments Monocytes (test code = Monocytes) 12.9 2.0-12.0 H [facility] CenterPslhbkeLNTPNYCUNC2099-04-89 09:04:00 Test Item Value Reference Range Interpretation Comments Lymphocytes (test code = Lymphocytes) 29.9 20.0-40.0 N [facility] CenterNcakhrkYWGRKLGSTS7063-35-88 09:04:00 Test Item Value Reference Range Interpretation Comments Basophils (test code = 0.3 See_Comment N [Aut omated message] The Basophils) system which ge nerated this result tra nsmitted reference range : <=1.0. The reference r jessika was not used to int erpret this result as normal/abnormal . [facility] CenterYwbaiajTGXWQUJDDL3405-44-94 09:04:00 Test Item Value Reference Range Interpretation Comments Basophils # (test code 0.0 See_Comment N [Aut omated message] The = Basophils #) system which generated this result tra nsmitted reference range : <=0.2. The reference r jessika was not used to int erpret this result as normal/abnormal . [facility] CenterTkvxnorFAEPFEVWNR7767-86-39 09:04:00 Test Item Value Reference Range Interpretation Comments Segs-Bands # (test code = Segs-Bands #) 3.8 1.5-8.1 N [facility] CenterHyncfmwHUZVDITBMI6487-80-02 09:04:00 Test Item Value Reference Range Interpretation Comments Hct (test code = Hct) 43.5 42.0-54.0 N [facility] CenterQjrrttuJKVPLMTDHS6909-22-89 09:04:00 Test Item Value Reference Range Interpretation Comments MCV (test code = MCV) 99.4 80.0-94.0 H [facility] CenterQqkdplwNJOFVRDTUG2329-10-53 09:04:00 Test Item Value Reference Range Interpretation Comments Hgb (test code = Hgb) 14.8 14.0-18.0 N [facility] CenterXokqlwlXONIYORFSP8264-63-81 09:04:00 Test Item Value Reference Range Interpretation Comments RBC (test code = RBC) 4.37 4.70-6.10 L [facility] CenterArjcxevCVXYJZTRGR4984-36-66 09:04:00 Test Item Value Reference Range Interpretation Comments WBC (test code = WBC) 6.9 3.7-10.4 N [facility] CenterJpwhfczKSVAYEJBLA9215-86-48 09:04:00 Test Item Value Reference Range Interpretation Comments Platelet (test code = Platelet) 178 133-450 N [facility] CenterIwzawcuGHGTMPEDSN3078-17-42 09:04:00 Test Item Value Reference Range Interpretation Comments MCHC (test code = MCHC) 34.2 32.0-36.0 N [facility] CenterRytbijxDYRFUHUPDA4499-16-15 09:04:00 Test Item Value Reference Range Interpretation Comments MPV (test code = MPV) 9.1 7.4-10.4 N [facility] CenterOhuxjenYCIWRSFFAF1976-72-56 09:04:00 Test Item Value Reference Range Interpretation Comments RDW (test code = RDW) 13.9 11.5-14.5 N [facility] CenterRwzazfcKDILHWQLJB3321-17-18 09:04:00 Test Item Value Reference Range Interpretation Comments MCH (test code = MCH) 33.9 pg 27.0-31.0 [facility]LwrqpxrIVBABONEL1614-34-17 09:04:00 Test Item Value Reference Range Interpretation Comments Glucose Lvl (test code = Glucose Lvl) 95 70-99 N [facility] HospitalFceurwrMVMVZASGS6933-47-17 09:04:00 Test Item Value Reference Range Interpretation Comments BUN (test code = BUN) 9 7-22 N [facility] HospitalWmjwltgBZUJFXTST1974-18-05 09:04:00 Test Item Value Reference Range Interpretation Comments Creatinine Lvl (test code = Creatinine 0.6 0.5-1.4 N Lvl) [facility] HospitalNrrjrzvDVUMYANBU2984-49-54 09:04:00 Test Item Value Reference Range Interpretation Comments Sodium Lvl (test code = Sodium Lvl) 141 135-145 N [facility] HospitalNsldbmaVEMDKQOAA5875-01-68 09:04:00 Test Item Value Reference Range Interpretation Comments Potassium Lvl (test code = Potassium 4.1 3.5-5.1 N Lvl) [facility] HospitalLrvdraeNYZDZJRRO8385-30-12 09:04:00 Test Item Value Reference Range Interpretation Comments Chloride Lvl (test code = Chloride Lvl) 107 95-109 N [facility] HospitalLlfyfjhZADBLHSBT6758-87-35 09:04:00 Test Item Value Reference Range Interpretation Comments CO2 (test code = CO2) 25 24-32 N [facility] HospitalNacssjxKAZNLLRCX5034-48-80 09:04:00 Test Item Value Reference Range Interpretation Comments Calcium Lvl (test code = Calcium Lvl) 9.0 8.5-10.5 N [facility] HospitalYxkrhfvNVAIMOINB4939-13-04 09:04:00 Test Item Value Reference Range Interpretation Comments AGAP (test code = AGAP) 13.1 10.0-20.0 N [facility] CenterBebcahzKRFPYYRAKV7033-67-55 09:04:00 Test Item Value Reference Range Interpretation Comments Macrocyte (test code = 1+ *ABN*(09/18/2011 A Macrocyte) 04:04:00) [facility] CenterEumpaqkOCXQANWEOZ8581-91-12 09:04:00 Test Item Value Reference Range Interpretation Comments Monocytes # (test code 0.9 See_Comment H [Aut omated message] The = Monocytes #) system which generated this result tra nsmitted reference range : <=0.8. The reference r jessika was not used to int erpret this result as normal/abnormal . [facility] CenterAjvxlbxSIBOBEBEOT2711-11-06 09:04:00 Test Item Value Reference Range Interpretation Comments Lymphocytes # (test code = Lymphocytes 2.1 1.0-5.5 N #) [facility] CenterSlzzefsVIPPYSQZGO5217-65-37 09:04:00 Test Item Value Reference Range Interpretation Comments Segs (test code = Segs) 54.6 45.0-75.0 N [facility] CenterIvkljcuTPDJQASAQJ0398-94-08 09:04:00 Test Item Value Reference Range Interpretation Comments Eosinophils # (test code 0.2 See_Comment N [A utomated message] The = Eosinophils #) system whic h generated this result tra nsmitted reference range : <=0.5. The reference r jessika was not used to int erpret this result as normal/abnormal . [facility] CenterHugoqlvNKCKLZNBLS4282-08-97 09:04:00 Test Item Value Reference Range Interpretation Comments Eosinophils (test code = 2.3 See_Comment N [A utomated message] The Eosinophils) system which ge nerated this result tra nsmitted reference range : <=4.0. The reference r jessika was not used to int erpret this result as normal/abnormal . [facility] CenterWjgnopzONAXXYHDTY8502-48-43 09:04:00 Test Item Value Reference Range Interpretation Comments Monocytes (test code = Monocytes) 12.9 2.0-12.0 H [facility] CenterVxquvbqXMCULBXNJA0352-26-93 09:04:00 Test Item Value Reference Range Interpretation Comments Lymphocytes (test code = Lymphocytes) 29.9 20.0-40.0 N [facility] CenterRvgyhrsYWYORVMIWP5685-70-65 09:04:00 Test Item Value Reference Range Interpretation Comments Basophils (test code = 0.3 See_Comment N [Aut omated message] The Basophils) system which ge nerated this result tra nsmitted reference range : <=1.0. The reference r jessika was not used to int erpret this result as normal/abnormal . [facility] CenterNsdygnhADNSLLQLSX2809-38-73 09:04:00 Test Item Value Reference Range Interpretation Comments Basophils # (test code 0.0 See_Comment N [Aut omated message] The = Basophils #) system which generated this result tra nsmitted reference range : <=0.2. The reference r jessika was not used to int erpret this result as normal/abnormal . [facility] CenterZywhjabSHVWAFOQBE5630-79-86 09:04:00 Test Item Value Reference Range Interpretation Comments Segs-Bands # (test code = Segs-Bands #) 3.8 1.5-8.1 N [facility] CenterHkduidrYWIWEJEFQX5495-30-81 09:04:00 Test Item Value Reference Range Interpretation Comments Hct (test code = Hct) 43.5 42.0-54.0 N [facility] CenterXysrdhfZUBMAHGCEA6442-68-61 09:04:00 Test Item Value Reference Range Interpretation Comments MCV (test code = MCV) 99.4 80.0-94.0 H [facility] CenterExkhsbyJWUTAZQZFW8027-38-59 09:04:00 Test Item Value Reference Range Interpretation Comments Hgb (test code = Hgb) 14.8 14.0-18.0 N [facility] CenterTkcdrycVWCPYHPRDH5988-57-60 09:04:00 Test Item Value Reference Range Interpretation Comments RBC (test code = RBC) 4.37 4.70-6.10 L [facility] CenterUintaxsIFEXCNTFQJ8439-81-70 09:04:00 Test Item Value Reference Range Interpretation Comments WBC (test code = WBC) 6.9 3.7-10.4 N [facility] CenterFisdgfrJXOPNJCVPC4043-71-22 09:04:00 Test Item Value Reference Range Interpretation Comments Platelet (test code = Platelet) 178 133-450 N [facility] CenterGlvmpvsOZAEIMBCPL9258-77-05 09:04:00 Test Item Value Reference Range Interpretation Comments MCHC (test code = MCHC) 34.2 32.0-36.0 N [facility] CenterDmbfrcgBGJZSLRZWH3102-66-72 09:04:00 Test Item Value Reference Range Interpretation Comments MPV (test code = MPV) 9.1 7.4-10.4 N [facility] CenterOofgfbcOKBTQFDQCX2608-94-90 09:04:00 Test Item Value Reference Range Interpretation Comments RDW (test code = RDW) 13.9 11.5-14.5 N [facility] CenterXbsixlxORFGQKFKWC7865-57-32 09:04:00 Test Item Value Reference Range Interpretation Comments MCH (test code = MCH) 33.9 pg 27.0-31.0 H [facility] HospitalKubpqiwNBRJQWZLY4002-77-64 09:04:00 Test Item Value Reference Range Interpretation Comments Glucose Lvl (test code = Glucose Lvl) 95 70-99 N [facility] HospitalDilpdkfCVGIDGXHB2255-64-93 09:04:00 Test Item Value Reference Range Interpretation Comments BUN (test code = BUN) 9 7-22 N [facility] HospitalWvyoeajYVHVJLGTU1934-85-11 09:04:00 Test Item Value Reference Range Interpretation Comments Creatinine Lvl (test code = Creatinine 0.6 0.5-1.4 N Lvl) [facility] HospitalAgnqbwuXWCFAUOAU8529-98-54 09:04:00 Test Item Value Reference Range Interpretation Comments Sodium Lvl (test code = Sodium Lvl) 141 135-145 N [facility] HospitalYcbeqljLTGMJQICQ0383-40-34 09:04:00 Test Item Value Reference Range Interpretation Comments Potassium Lvl (test code = Potassium 4.1 3.5-5.1 N Lvl) [facility] HospitalJefnqluXLKOVCVZJ3446-55-49 09:04:00 Test Item Value Reference Range Interpretation Comments Chloride Lvl (test code = Chloride Lvl) 107 95-109 N [facility] HospitalMkashooLGLUBPAJQ7835-21-62 09:04:00 Test Item Value Reference Range Interpretation Comments CO2 (test code = CO2) 25 24-32 N [facility] HospitalDszisjoZSPCSVFEH1582-72-82 09:04:00 Test Item Value Reference Range Interpretation Comments Calcium Lvl (test code = Calcium Lvl) 9.0 8.5-10.5 N [facility] HospitalVsbuiunAQYPSZVWN2787-40-06 09:04:00 Test Item Value Reference Range Interpretation Comments AGAP (test code = AGAP) 13.1 10.0-20.0 N [facility] CenterZklorbeFQPFROLJKE8548-20-92 09:04:00 Test Item Value Reference Range Interpretation Comments Macrocyte (test code = 1+ *ABN*(09/18/2011 A Macrocyte) 04:04:00) [facility] CenterLxnlpibZTUVAXGHQA3022-39-74 09:04:00 Test Item Value Reference Range Interpretation Comments Monocytes # (test code 0.9 See_Comment H [Aut omated message] The = Monocytes #) system which generated this result tra nsmitted reference range : <=0.8. The reference r jessika was not used to int erpret this result as normal/abnormal . [facility] CenterAlvkkgdKDXGXCRXYC4194-17-55 09:04:00 Test Item Value Reference Range Interpretation Comments Lymphocytes # (test code = Lymphocytes 2.1 1.0-5.5 N #) [facility] CenterLrwhozzVZEVNRLHGQ8948-07-01 09:04:00 Test Item Value Reference Range Interpretation Comments Segs (test code = Segs) 54.6 45.0-75.0 N [facility] CenterJmrwfkzCGVCPEQNLG7514-00-21 09:04:00 Test Item Value Reference Range Interpretation Comments Eosinophils # (test code 0.2 See_Comment N [A utomated message] The = Eosinophils #) system whic h generated this result tra nsmitted reference range : <=0.5. The reference r jessika was not used to int erpret this result as normal/abnormal . [facility] CenterMelkichEBJBDQPQZC1394-94-41 09:04:00 Test Item Value Reference Range Interpretation Comments Eosinophils (test code = 2.3 See_Comment N [A utomated message] The Eosinophils) system which ge nerated this result tra nsmitted reference range : <=4.0. The reference r jessika was not used to int erpret this result as normal/abnormal . [facility] CenterWoeflxaPBAHCYHUCM9612-45-40 09:04:00 Test Item Value Reference Range Interpretation Comments Monocytes (test code = Monocytes) 12.9 2.0-12.0 H [facility] CenterDggvcisAMFIVOPKAA4897-88-80 09:04:00 Test Item Value Reference Range Interpretation Comments Lymphocytes (test code = Lymphocytes) 29.9 20.0-40.0 N [facility] CenterXckjfsxMVOOMEZOCU0408-71-65 09:04:00 Test Item Value Reference Range Interpretation Comments Basophils (test code = 0.3 See_Comment N [Aut omated message] The Basophils) system which ge nerated this result tra nsmitted reference range : <=1.0. The reference r jessika was not used to int erpret this result as normal/abnormal . [facility] CenterGpefslhRQUQNYTAHY4488-74-63 09:04:00 Test Item Value Reference Range Interpretation Comments Basophils # (test code 0.0 See_Comment N [Aut omated message] The = Basophils #) system which generated this result tra nsmitted reference range : <=0.2. The reference r jessika was not used to int erpret this result as normal/abnormal . [facility] CenterOdtwpykRKOSNEMHGK4222-47-41 09:04:00 Test Item Value Reference Range Interpretation Comments Segs-Bands # (test code = Segs-Bands #) 3.8 1.5-8.1 N [facility] CenterEdmlakyDOALQGANLS2234-66-64 09:04:00 Test Item Value Reference Range Interpretation Comments Hct (test code = Hct) 43.5 42.0-54.0 N [facility] CenterXudaewfHWRMYTHWBU3586-48-12 09:04:00 Test Item Value Reference Range Interpretation Comments MCV (test code = MCV) 99.4 80.0-94.0 H [facility] CenterNvxwplqFGIELRWNKS2780-38-06 09:04:00 Test Item Value Reference Range Interpretation Comments Hgb (test code = Hgb) 14.8 14.0-18.0 N [facility] CenterFscdoqoIINWOKHFQH7898-00-15 09:04:00 Test Item Value Reference Range Interpretation Comments RBC (test code = RBC) 4.37 4.70-6.10 L [facility] CenterDbssjmyYCHDSNHQRH9763-50-90 09:04:00 Test Item Value Reference Range Interpretation Comments WBC (test code = WBC) 6.9 3.7-10.4 N [facility] CenterOunneiaCWEYEZAJOS6125-74-78 09:04:00 Test Item Value Reference Range Interpretation Comments Platelet (test code = Platelet) 178 133-450 N [facility] CenterSsnvlhcPRAFWXKZNZ6997-95-34 09:04:00 Test Item Value Reference Range Interpretation Comments MCHC (test code = MCHC) 34.2 32.0-36.0 N [facility] CenterGaiuygjTZBTGYGXLL4246-62-68 09:04:00 Test Item Value Reference Range Interpretation Comments MPV (test code = MPV) 9.1 7.4-10.4 N [facility] CenterLpvtbmxSUDRRTXCGM9634-37-47 09:04:00 Test Item Value Reference Range Interpretation Comments RDW (test code = RDW) 13.9 11.5-14.5 N [facility] CenterUykuvtiPBHSMLELCX9254-97-80 09:04:00 Test Item Value Reference Range Interpretation Comments MCH (test code = MCH) 33.9 pg 27.0-31.0 H [facility] HospitalNomviwkGDBWVLBFW1720-30-39 09:04:00 Test Item Value Reference Range Interpretation Comments Glucose Lvl (test code = Glucose Lvl) 95 70-99 N [facility] HospitalCkzkqjrKRIVYTYAQ6530-00-40 09:04:00 Test Item Value Reference Range Interpretation Comments Glucose Lvl (test code = Glucose Lvl) 95 70-99 N [facility] HospitalTwrsoceSCOBRKOJE6805-24-54 09:04:00 Test Item Value Reference Range Interpretation Comments BUN (test code = BUN) 9 7-22 N [facility] HospitalNxdzsgyQIITFMHGO5252-26-19 09:04:00 Test Item Value Reference Range Interpretation Comments Creatinine Lvl (test code = Creatinine 0.6 0.5-1.4 N Lvl) [facility] HospitalJtnxqfrSDZPUOPYJ3189-24-42 09:04:00 Test Item Value Reference Range Interpretation Comments Sodium Lvl (test code = Sodium Lvl) 141 135-145 N [facility] HospitalHtktgbrDHZDZQIWA4448-08-29 09:04:00 Test Item Value Reference Range Interpretation Comments Potassium Lvl (test code = Potassium 4.1 3.5-5.1 N Lvl) [facility] HospitalDhytyrhBNXSUMQMX5693-61-02 09:04:00 Test Item Value Reference Range Interpretation Comments Chloride Lvl (test code = Chloride Lvl) 107 95-109 N [facility] HospitalTzvshlcRYQCDISVV7885-69-51 09:04:00 Test Item Value Reference Range Interpretation Comments CO2 (test code = CO2) 25 24-32 N [facility] HospitalTdexxjrMUNRSGNRN6094-94-55 09:04:00 Test Item Value Reference Range Interpretation Comments Calcium Lvl (test code = Calcium Lvl) 9.0 8.5-10.5 N [facility] HospitalRhjtnuuIAQBGEBWM5980-32-53 09:04:00 Test Item Value Reference Range Interpretation Comments AGAP (test code = AGAP) 13.1 10.0-20.0 N [facility] CenterLvpoxtyKUQWUTKYXN6037-32-83 09:04:00 Test Item Value Reference Range Interpretation Comments Macrocyte (test code = 1+ *ABN*(09/18/2011 A Macrocyte) 04:04:00) [facility] HospitalVijhmclTPBWBOXPR0764-49-17 09:04:00 Test Item Value Reference Range Interpretation Comments BUN (test code = BUN) 9 7-22 N [facility] CenterPwqzyrqKRESKOQHVL8549-97-38 09:04:00 Test Item Value Reference Range Interpretation Comments Monocytes # (test code 0.9 See_Comment H [Aut omated message] The = Monocytes #) system which generated this result tra nsmitted reference range : <=0.8. The reference r jessika was not used to int erpret this result as normal/abnormal . [facility] CenterYhhtlsoWDKINIDGWQ1286-96-21 09:04:00 Test Item Value Reference Range Interpretation Comments Lymphocytes # (test code = Lymphocytes 2.1 1.0-5.5 N #) [facility] CenterQyhgiwvXWQHWQUSRJ9451-21-01 09:04:00 Test Item Value Reference Range Interpretation Comments Segs (test code = Segs) 54.6 45.0-75.0 N [facility] CenterChbzcayAVZIBTWLLY9737-11-08 09:04:00 Test Item Value Reference Range Interpretation Comments Eosinophils # (test code 0.2 See_Comment N [A utomated message] The = Eosinophils #) system whic h generated this result tra nsmitted reference range : <=0.5. The reference r jessika was not used to int erpret this result as normal/abnormal . [facility] CenterLxqhuqlJCEUVLDPDW3210-82-86 09:04:00 Test Item Value Reference Range Interpretation Comments Eosinophils (test code = 2.3 See_Comment N [A utomated message] The Eosinophils) system which ge nerated this result tra nsmitted reference range : <=4.0. The reference r jessika was not used to int erpret this result as normal/abnormal . [facility] CenterUwnmkpmEHPWLBOWFG0022-97-86 09:04:00 Test Item Value Reference Range Interpretation Comments Monocytes (test code = Monocytes) 12.9 2.0-12.0 H [facility] CenterZakkoffWJSEAXXDMW9633-61-73 09:04:00 Test Item Value Reference Range Interpretation Comments Lymphocytes (test code = Lymphocytes) 29.9 20.0-40.0 N [facility] CenterMefbfacNNFFIJTKEU9071-58-65 09:04:00 Test Item Value Reference Range Interpretation Comments Basophils (test code = 0.3 See_Comment N [Aut omated message] The Basophils) system which ge nerated this result tra nsmitted reference range : <=1.0. The reference r jessika was not used to int erpret this result as normal/abnormal . [facility] CenterAyfatdoXEPXRQHEFO8218-81-19 09:04:00 Test Item Value Reference Range Interpretation Comments Basophils # (test code 0.0 See_Comment N [Aut omated message] The = Basophils #) system which generated this result tra nsmitted reference range : <=0.2. The reference r jessika was not used to int erpret this result as normal/abnormal . [facility] CenterRjkblviJUFHOBKXEK7245-03-17 09:04:00 Test Item Value Reference Range Interpretation Comments Segs-Bands # (test code = Segs-Bands #) 3.8 1.5-8.1 N [facility] HospitalRqxodzsHMBVNBNFP2829-55-49 09:04:00 Test Item Value Reference Range Interpretation Comments Creatinine Lvl (test code = Creatinine 0.6 0.5-1.4 N Lvl) [facility] CenterEorysywTVPSLUTGUW5746-59-40 09:04:00 Test Item Value Reference Range Interpretation Comments Hct (test code = Hct) 43.5 42.0-54.0 N [facility] CenterSqmcbexLZGLYLASEB6462-94-24 09:04:00 Test Item Value Reference Range Interpretation Comments MCV (test code = MCV) 99.4 80.0-94.0 H [facility] CenterYjpmzjpZZFHAXDLUD0382-09-28 09:04:00 Test Item Value Reference Range Interpretation Comments Hgb (test code = Hgb) 14.8 14.0-18.0 N [facility] CenterFlksgvqXLFSOUGZTS2347-34-81 09:04:00 Test Item Value Reference Range Interpretation Comments RBC (test code = RBC) 4.37 4.70-6.10 L [facility] CenterQbewkeoSXMBUKYUTN1377-46-87 09:04:00 Test Item Value Reference Range Interpretation Comments WBC (test code = WBC) 6.9 3.7-10.4 N [facility] CenterIinoittZQVXIVOFEL1931-08-14 09:04:00 Test Item Value Reference Range Interpretation Comments Platelet (test code = Platelet) 178 133-450 N [facility] CenterMihpqcoENYZFBZUXN8688-21-88 09:04:00 Test Item Value Reference Range Interpretation Comments MCHC (test code = MCHC) 34.2 32.0-36.0 N [facility] CenterWhmuahtPOFAQQKJNV3996-07-02 09:04:00 Test Item Value Reference Range Interpretation Comments MPV (test code = MPV) 9.1 7.4-10.4 N [facility] CenterMcwuaxkVQNCZAHGOA3978-19-57 09:04:00 Test Item Value Reference Range Interpretation Comments RDW (test code = RDW) 13.9 11.5-14.5 N [facility] CenterKzzeiggDCIWBSCCLV6557-73-90 09:04:00 Test Item Value Reference Range Interpretation Comments MCH (test code = MCH) 33.9 pg 27.0-31.0 H [facility] HospitalAbuwuwpFCZEQCGPT0115-84-82 09:04:00 Test Item Value Reference Range Interpretation Comments Sodium Lvl (test code = Sodium Lvl) 141 135-145 N [facility] HospitalTsznvrpSDHWTMYGH3345-04-31 09:04:00 Test Item Value Reference Range Interpretation Comments Potassium Lvl (test code = Potassium 4.1 3.5-5.1 N Lvl) [facility] HospitalPptsemcZABCCAKXU7904-16-87 09:04:00 Test Item Value Reference Range Interpretation Comments Chloride Lvl (test code = Chloride Lvl) 107 95-109 N [facility] HospitalWerpyvoEXOJLDPIP7687-68-09 09:04:00 Test Item Value Reference Range Interpretation Comments CO2 (test code = CO2) 25 24-32 N [facility] HospitalTotskdoAEIEXFBWO0497-72-65 09:04:00 Test Item Value Reference Range Interpretation Comments CO2 (test code = CO2) 25 24-32 N [facility] HospitalZhldlluRCANCSKGY0681-34-93 09:04:00 Test Item Value Reference Range Interpretation Comments Calcium Lvl (test code = Calcium Lvl) 9.0 8.5-10.5 N [facility] HospitalPsavyxqGOUTMCCSI4814-50-87 09:04:00 Test Item Value Reference Range Interpretation Comments AGAP (test code = AGAP) 13.1 10.0-20.0 N [facility] CenterEeckvocQQEDQYFFPW1223-08-15 09:04:00 Test Item Value Reference Range Interpretation Comments Macrocyte (test code = 1+ *ABN*(09/18/2011 A Macrocyte) 04:04:00) [facility] CenterSarettfLXVKXMDRSO3364-43-41 09:04:00 Test Item Value Reference Range Interpretation Comments Monocytes # (test code = Monocytes #) 0.9 <=0.8 H [facility] CenterCdwimerYSJFKTVAVW5017-38-14 09:04:00 Test Item Value Reference Range Interpretation Comments Lymphocytes # (test code = Lymphocytes 2.1 1.0-5.5 N #) [facility] CenterRhrtthmQSGQYIFXJN9447-04-07 09:04:00 Test Item Value Reference Range Interpretation Comments Segs (test code = Segs) 54.6 45.0-75.0 N [facility] CenterCfyadukAOQDRBRKZP6968-12-89 09:04:00 Test Item Value Reference Range Interpretation Comments Eosinophils # (test code = Eosinophils 0.2 <=0.5 N #) [facility] CenterNbifebuCQSMGCEUBV2853-94-67 09:04:00 Test Item Value Reference Range Interpretation Comments Eosinophils (test code = Eosinophils) 2.3 <=4.0 N [facility] CenterOgtewfiJHONTFTDLA6014-53-98 09:04:00 Test Item Value Reference Range Interpretation Comments Monocytes (test code = Monocytes) 12.9 2.0-12.0 H [facility] CenterKocyihlPPYVQDTOGY2568-73-62 09:04:00 Test Item Value Reference Range Interpretation Comments Lymphocytes (test code = Lymphocytes) 29.9 20.0-40.0 N [facility] CenterOstkmjlQEGHQQBCMU8091-20-34 09:04:00 Test Item Value Reference Range Interpretation Comments Basophils (test code = Basophils) 0.3 <=1.0 N [facility] CenterWvzzuwkAYDPDHDNMX4082-69-87 09:04:00 Test Item Value Reference Range Interpretation Comments Basophils # (test code = Basophils #) 0.0 <=0.2 N [facility] CenterXsubfwnLMNCLPFGDW1697-07-91 09:04:00 Test Item Value Reference Range Interpretation Comments Segs-Bands # (test code = Segs-Bands #) 3.8 1.5-8.1 N [facility] CenterLmvarssVBLVUQOPVG4603-01-36 09:04:00 Test Item Value Reference Range Interpretation Comments Hct (test code = Hct) 43.5 42.0-54.0 N [facility] CenterAhmuvotPHXZFPFUPC2471-08-39 09:04:00 Test Item Value Reference Range Interpretation Comments MCV (test code = MCV) 99.4 80.0-94.0 H [facility] CenterDcwmdihYBCBCZMKAN2461-72-01 09:04:00 Test Item Value Reference Range Interpretation Comments Hgb (test code = Hgb) 14.8 14.0-18.0 N [facility] CenterBcjrdbjSLAZTEHCUW3067-32-65 09:04:00 Test Item Value Reference Range Interpretation Comments RBC (test code = RBC) 4.37 4.70-6.10 L [facility] CenterMyexvtcBHABCXTYTT5959-27-45 09:04:00 Test Item Value Reference Range Interpretation Comments WBC (test code = WBC) 6.9 3.7-10.4 N [facility] CenterUjcrwcuUYQEPJZHCP2585-44-58 09:04:00 Test Item Value Reference Range Interpretation Comments Platelet (test code = Platelet) 178 133-450 N [facility] CenterTdqdihwIYWLTWCZEJ6851-54-00 09:04:00 Test Item Value Reference Range Interpretation Comments MCHC (test code = MCHC) 34.2 32.0-36.0 N [facility] CenterEscaqhzZUITPBABOG3706-41-97 09:04:00 Test Item Value Reference Range Interpretation Comments MPV (test code = MPV) 9.1 7.4-10.4 N [facility] CenterCmkaupgJTAMCZTYWK6774-60-25 09:04:00 Test Item Value Reference Range Interpretation Comments RDW (test code = RDW) 13.9 11.5-14.5 N [facility] CenterUjuszgyYEXDMIRUVD2145-58-53 09:04:00 Test Item Value Reference Range Interpretation Comments MCH (test code = MCH) 33.9 pg 27.0-31.0 H [facility] HospitalGxbmmauNYRINXLXC9238-37-19 09:04:00 Test Item Value Reference Range Interpretation Comments Glucose Lvl (test code = Glucose Lvl) 95 70-99 N [facility] HospitalOqwmsfsOTTYPKUVX8899-28-74 09:04:00 Test Item Value Reference Range Interpretation Comments BUN (test code = BUN) 9 7-22 N [facility] HospitalXbmfvxmZIVNCBXAO1664-21-61 09:04:00 Test Item Value Reference Range Interpretation Comments Creatinine Lvl (test code = Creatinine 0.6 0.5-1.4 N Lvl) [facility] HospitalKpttnohSTSUISVOT3010-86-50 09:04:00 Test Item Value Reference Range Interpretation Comments Sodium Lvl (test code = Sodium Lvl) 141 135-145 N [facility] HospitalMbutgvoVKYHDLPYQ3236-47-15 09:04:00 Test Item Value Reference Range Interpretation Comments Potassium Lvl (test code = Potassium 4.1 3.5-5.1 N Lvl) [facility] HospitalBdjplwmLOIKQAEIK7766-33-03 09:04:00 Test Item Value Reference Range Interpretation Comments Chloride Lvl (test code = Chloride Lvl) 107 95-109 N [facility] HospitalYxffcdxLTVSDENFG0681-53-02 09:04:00 Test Item Value Reference Range Interpretation Comments Calcium Lvl (test code = Calcium Lvl) 9.0 8.5-10.5 N [facility] HospitalRjyaytjWUIOBMPUI2092-02-61 09:04:00 Test Item Value Reference Range Interpretation Comments AGAP (test code = AGAP) 13.1 10.0-20.0 N [facility] CenterTwdyogqNJDECLGUNX4655-28-06 09:04:00 Test Item Value Reference Range Interpretation Comments Macrocyte (test code = 1+ *ABN*(09/18/2011 A Macrocyte) 04:04:00) [facility] CenterElnqamyAHGMYXVYNM5866-16-56 09:04:00 Test Item Value Reference Range Interpretation Comments Monocytes # (test code 0.9 See_Comment H [Aut omated message] The = Monocytes #) system which generated this result tra nsmitted reference range : <=0.8. The reference r jessika was not used to int erpret this result as normal/abnormal . [facility] CenterWnxzjfvASMURZXNJQ3051-33-82 09:04:00 Test Item Value Reference Range Interpretation Comments Lymphocytes # (test code = Lymphocytes 2.1 1.0-5.5 N #) [facility] CenterNkwxwwnZPOMMDAXQZ3994-43-21 09:04:00 Test Item Value Reference Range Interpretation Comments Segs (test code = Segs) 54.6 45.0-75.0 N [facility] CenterNbtxwgkODQDWYQDZX1853-96-68 09:04:00 Test Item Value Reference Range Interpretation Comments Eosinophils # (test code 0.2 See_Comment N [A utomated message] The = Eosinophils #) system whic h generated this result tra nsmitted reference range : <=0.5. The reference r jessika was not used to int erpret this result as normal/abnormal . [facility] CenterVnrawxhFPLPHSHVXK7972-43-14 09:04:00 Test Item Value Reference Range Interpretation Comments Eosinophils (test code = 2.3 See_Comment N [A utomated message] The Eosinophils) system which ge nerated this result tra nsmitted reference range : <=4.0. The reference r jessika was not used to int erpret this result as normal/abnormal . [facility] CenterSxhhbkbZYQPUVCVNM1955-50-87 09:04:00 Test Item Value Reference Range Interpretation Comments Monocytes (test code = Monocytes) 12.9 2.0-12.0 H [facility] CenterXdubqsoIINBEAQCUT1260-76-88 09:04:00 Test Item Value Reference Range Interpretation Comments Lymphocytes (test code = Lymphocytes) 29.9 20.0-40.0 N [facility] HospitalWfzkmnaSXMWLPWYX1422-48-88 09:04:00 Test Item Value Reference Range Interpretation Comments Glucose Lvl (test code = Glucose Lvl) 95 70-99 N [facility] HospitalThhpctlLDUYPJZVP6695-14-69 09:04:00 Test Item Value Reference Range Interpretation Comments BUN (test code = BUN) 9 7-22 N [facility] HospitalHrmbkbxEJSLHZMYC2604-21-71 09:04:00 Test Item Value Reference Range Interpretation Comments Creatinine Lvl (test code = Creatinine 0.6 0.5-1.4 N Lvl) [facility] HospitalYiwwwdiNSRFRIXJS6718-60-38 09:04:00 Test Item Value Reference Range Interpretation Comments Sodium Lvl (test code = Sodium Lvl) 141 135-145 N [facility] HospitalJvvlqpmRBQZKSROU5016-75-66 09:04:00 Test Item Value Reference Range Interpretation Comments Potassium Lvl (test code = Potassium 4.1 3.5-5.1 N Lvl) [facility] HospitalTsrqjlqDJMJJBFSF0001-95-65 09:04:00 Test Item Value Reference Range Interpretation Comments Chloride Lvl (test code = Chloride Lvl) 107 95-109 N [facility] CenterOyiesdcTFRNWWRFXX0994-95-33 09:04:00 Test Item Value Reference Range Interpretation Comments Basophils (test code = 0.3 See_Comment N [Aut omated message] The Basophils) system which ge nerated this result tra nsmitted reference range : <=1.0. The reference r jessika was not used to int erpret this result as normal/abnormal . [facility] HospitalPjyhbnzQJGHWLKKR0256-93-45 09:04:00 Test Item Value Reference Range Interpretation Comments CO2 (test code = CO2) 25 24-32 N [facility] HospitalGdfbynjUBXUKNLOH5272-53-90 09:04:00 Test Item Value Reference Range Interpretation Comments Calcium Lvl (test code = Calcium Lvl) 9.0 8.5-10.5 N [facility] HospitalBnbenqyDWOKPMAGB5442-91-63 09:04:00 Test Item Value Reference Range Interpretation Comments AGAP (test code = AGAP) 13.1 10.0-20.0 N [facility] CenterCurxpbjXWIHKKMAKH1989-24-92 09:04:00 Test Item Value Reference Range Interpretation Comments Macrocyte (test code = 1+ *ABN*(09/18/2011 A Macrocyte) 04:04:00) [facility] CenterOqjnygeBAUXJJNWBH8543-22-83 09:04:00 Test Item Value Reference Range Interpretation Comments Monocytes # (test code = Monocytes #) 0.9 <=0.8 H [facility] CenterQftvjppXLGPVJRHJO5674-17-53 09:04:00 Test Item Value Reference Range Interpretation Comments Lymphocytes # (test code = Lymphocytes 2.1 1.0-5.5 N #) [facility] CenterVddbnhzKYMTZVFLFD5325-83-18 09:04:00 Test Item Value Reference Range Interpretation Comments Segs (test code = Segs) 54.6 45.0-75.0 N [facility] CenterNuoyeodNWJAGDTCGR7323-09-28 09:04:00 Test Item Value Reference Range Interpretation Comments Eosinophils # (test code = Eosinophils 0.2 <=0.5 N #) [facility] CenterQrdmyduFNBHRVFOXG1168-81-43 09:04:00 Test Item Value Reference Range Interpretation Comments Eosinophils (test code = Eosinophils) 2.3 <=4.0 N [facility] CenterRkgzufyFGLSYGWYOK8170-92-17 09:04:00 Test Item Value Reference Range Interpretation Comments Monocytes (test code = Monocytes) 12.9 2.0-12.0 H [facility] CenterLezsgiyTFTZPFXVLV1613-79-92 09:04:00 Test Item Value Reference Range Interpretation Comments Basophils # (test code 0.0 See_Comment N [Aut omated message] The = Basophils #) system which generated this result tra nsmitted reference range : <=0.2. The reference r jessika was not used to int erpret this result as normal/abnormal . [facility] CenterVmmqscqIFXNHZPABQ9242-37-64 09:04:00 Test Item Value Reference Range Interpretation Comments Lymphocytes (test code = Lymphocytes) 29.9 20.0-40.0 N [facility] CenterLruyypoBVUNYOQFIA9472-21-79 09:04:00 Test Item Value Reference Range Interpretation Comments Basophils (test code = Basophils) 0.3 <=1.0 N [facility] CenterRdnsiqkIHFUSNXYRO4695-49-44 09:04:00 Test Item Value Reference Range Interpretation Comments Basophils # (test code = Basophils #) 0.0 <=0.2 N [facility] CenterNaurcsxFSRHUOSLJH4315-47-10 09:04:00 Test Item Value Reference Range Interpretation Comments Segs-Bands # (test code = Segs-Bands #) 3.8 1.5-8.1 N [facility] CenterVkhreocZJULHZAOAY4468-44-24 09:04:00 Test Item Value Reference Range Interpretation Comments Hct (test code = Hct) 43.5 42.0-54.0 N [facility] CenterTjdwiwsETBUBUMEQC6389-49-09 09:04:00 Test Item Value Reference Range Interpretation Comments MCV (test code = MCV) 99.4 80.0-94.0 H [facility] CenterYrsjxayAOKPSVIVZY5262-06-15 09:04:00 Test Item Value Reference Range Interpretation Comments Hgb (test code = Hgb) 14.8 14.0-18.0 N [facility] CenterFwarszyRENLJLYASC4250-51-73 09:04:00 Test Item Value Reference Range Interpretation Comments RBC (test code = RBC) 4.37 4.70-6.10 L [facility] CenterMkmeignSEUJMAVDMX1943-04-57 09:04:00 Test Item Value Reference Range Interpretation Comments WBC (test code = WBC) 6.9 3.7-10.4 N [facility] CenterRmjovbrXCZIAOICKA7733-50-48 09:04:00 Test Item Value Reference Range Interpretation Comments Platelet (test code = Platelet) 178 133-450 N [facility] CenterHwltedhBKVWOUJTGE2879-74-42 09:04:00 Test Item Value Reference Range Interpretation Comments Segs-Bands # (test code = Segs-Bands #) 3.8 1.5-8.1 N [facility] CenterBehqrmmIOHJROHHVJ3226-39-31 09:04:00 Test Item Value Reference Range Interpretation Comments MCHC (test code = MCHC) 34.2 32.0-36.0 N [facility] CenterNmidqflIJBRKMZLRC9760-31-61 09:04:00 Test Item Value Reference Range Interpretation Comments MPV (test code = MPV) 9.1 7.4-10.4 N [facility] CenterFbdqaihYTQRGYXSSW5721-31-17 09:04:00 Test Item Value Reference Range Interpretation Comments RDW (test code = RDW) 13.9 11.5-14.5 N [facility] CenterRmzbvpaVOHPUNPNMI1793-55-08 09:04:00 Test Item Value Reference Range Interpretation Comments MCH (test code = MCH) 33.9 pg 27.0-31.0 H [facility] CenterCukuaegUWLSSIWBFO9012-94-05 09:04:00 Test Item Value Reference Range Interpretation Comments Hct (test code = Hct) 43.5 42.0-54.0 N [facility] CenterBgaibahPLYGPQSDSX2255-23-88 09:04:00 Test Item Value Reference Range Interpretation Comments MCV (test code = MCV) 99.4 80.0-94.0 H [facility] CenterOoxjopwXSYWVKTHDM6145-22-96 09:04:00 Test Item Value Reference Range Interpretation Comments Hgb (test code = Hgb) 14.8 14.0-18.0 N [facility] CenterRyutqrnULESTOCRDM8731-28-68 09:04:00 Test Item Value Reference Range Interpretation Comments RBC (test code = RBC) 4.37 4.70-6.10 L [facility] CenterVaoikyoHJEHBLJWAD1534-83-55 09:04:00 Test Item Value Reference Range Interpretation Comments WBC (test code = WBC) 6.9 3.7-10.4 N [facility] CenterVoevlejVHISQLVPYR9816-13-34 09:04:00 Test Item Value Reference Range Interpretation Comments Platelet (test code = Platelet) 178 133-450 N [facility] CenterZabmwblTQZDGLJIOS7256-96-72 09:04:00 Test Item Value Reference Range Interpretation Comments MCHC (test code = MCHC) 34.2 32.0-36.0 N [facility] CenterLvcpmleYDDLADCOUW4062-24-60 09:04:00 Test Item Value Reference Range Interpretation Comments MPV (test code = MPV) 9.1 7.4-10.4 N [facility] CenterZrsoagvKWKEZQMEKH5053-45-35 09:04:00 Test Item Value Reference Range Interpretation Comments RDW (test code = RDW) 13.9 11.5-14.5 N [facility] CenterHshpjufWUHIOIUGMW1950-33-99 09:04:00 Test Item Value Reference Range Interpretation Comments MCH (test code = MCH) 33.9 pg 27.0-31.0 H [facility] HospitalBlyraghMBQQOZJQB5220-10-85 09:04:00 Test Item Value Reference Range Interpretation Comments Glucose Lvl (test code = Glucose Lvl) 95 70-99 N [facility] HospitalXrwvmafHRGSKOPQE7383-82-51 09:04:00 Test Item Value Reference Range Interpretation Comments BUN (test code = BUN) 9 7-22 N [facility] HospitalBppjbinHMCHAYYAZ9643-85-70 09:04:00 Test Item Value Reference Range Interpretation Comments Creatinine Lvl (test code = Creatinine 0.6 0.5-1.4 N Lvl) [facility] HospitalLphkdqgHHDJQKECU4238-10-06 09:04:00 Test Item Value Reference Range Interpretation Comments Sodium Lvl (test code = Sodium Lvl) 141 135-145 N [facility] HospitalQyrzqqzBJIBHYZGG7077-40-12 09:04:00 Test Item Value Reference Range Interpretation Comments Potassium Lvl (test code = Potassium 4.1 3.5-5.1 N Lvl) [facility] HospitalKjndsanZDWAERWNZ2331-55-90 09:04:00 Test Item Value Reference Range Interpretation Comments Chloride Lvl (test code = Chloride Lvl) 107 95-109 N [facility] HospitalYobdnkmAWOKKZHGJ6583-99-15 09:04:00 Test Item Value Reference Range Interpretation Comments CO2 (test code = CO2) 25 24-32 N [facility] HospitalCikyfmqWJRSGHCZZ5814-80-33 09:04:00 Test Item Value Reference Range Interpretation Comments Calcium Lvl (test code = Calcium Lvl) 9.0 8.5-10.5 N [facility] HospitalYufujlwTQVGSJAHA6080-14-67 09:04:00 Test Item Value Reference Range Interpretation Comments AGAP (test code = AGAP) 13.1 10.0-20.0 N [facility] CenterFpzwoccNPLPDKHAEV5566-38-33 09:04:00 Test Item Value Reference Range Interpretation Comments Macrocyte (test code = 1+ *ABN*(09/18/2011 A Macrocyte) 04:04:00) [facility] CenterWljddafEDMOJDJFYH4344-24-69 09:04:00 Test Item Value Reference Range Interpretation Comments Monocytes # (test code = Monocytes #) 0.9 <=0.8 H [facility] CenterLskbhjqLTINYEKQMZ5667-40-33 09:04:00 Test Item Value Reference Range Interpretation Comments Lymphocytes # (test code = Lymphocytes 2.1 1.0-5.5 N #) [facility] CenterDpxkpzsAABAFHQXOC0963-19-47 09:04:00 Test Item Value Reference Range Interpretation Comments Segs (test code = Segs) 54.6 45.0-75.0 N [facility] CenterYjceiitLCONGOUOHR5297-50-68 09:04:00 Test Item Value Reference Range Interpretation Comments Eosinophils # (test code = Eosinophils 0.2 <=0.5 N #) [facility] CenterLpmiiqhBVXUGWEGAF0028-60-86 09:04:00 Test Item Value Reference Range Interpretation Comments Eosinophils (test code = Eosinophils) 2.3 <=4.0 N [facility] CenterYhggasxWRWRFEIEEV0698-55-33 09:04:00 Test Item Value Reference Range Interpretation Comments Monocytes (test code = Monocytes) 12.9 2.0-12.0 H [facility] CenterKsghkogYSGZNRKALE8060-56-92 09:04:00 Test Item Value Reference Range Interpretation Comments Lymphocytes (test code = Lymphocytes) 29.9 20.0-40.0 N [facility] CenterMznyglqCUHTILTIWG5875-35-12 09:04:00 Test Item Value Reference Range Interpretation Comments Basophils (test code = Basophils) 0.3 <=1.0 N [facility] CenterDypgfujYDDFRRLZWA3202-60-02 09:04:00 Test Item Value Reference Range Interpretation Comments Basophils # (test code = Basophils #) 0.0 <=0.2 N [facility] CenterMpagmsfDBCNCJAAJQ8131-37-95 09:04:00 Test Item Value Reference Range Interpretation Comments Segs-Bands # (test code = Segs-Bands #) 3.8 1.5-8.1 N [facility] CenterRmkagaaLHOAYQHAHY2333-55-39 09:04:00 Test Item Value Reference Range Interpretation Comments Hct (test code = Hct) 43.5 42.0-54.0 N [facility] CenterZkhxlgdUCMTDCANHL0991-29-28 09:04:00 Test Item Value Reference Range Interpretation Comments MCV (test code = MCV) 99.4 80.0-94.0 H [facility] CenterQfylwrdZHFGJKOBAP7602-43-15 09:04:00 Test Item Value Reference Range Interpretation Comments Hgb (test code = Hgb) 14.8 14.0-18.0 N [facility] CenterHsycbrjBPNNOXQUIV9849-56-20 09:04:00 Test Item Value Reference Range Interpretation Comments RBC (test code = RBC) 4.37 4.70-6.10 L [facility] CenterPmsoapuDONVMMHXIZ2380-90-34 09:04:00 Test Item Value Reference Range Interpretation Comments WBC (test code = WBC) 6.9 3.7-10.4 N [facility] CenterVtjuxhuGQJMVHMKKI2738-94-89 09:04:00 Test Item Value Reference Range Interpretation Comments Platelet (test code = Platelet) 178 133-450 N [facility] CenterOvkrfycEIRHPYJVHD5289-11-38 09:04:00 Test Item Value Reference Range Interpretation Comments MCHC (test code = MCHC) 34.2 32.0-36.0 N [facility] CenterJmnnkshBNAZHLEVWV8691-81-38 09:04:00 Test Item Value Reference Range Interpretation Comments MPV (test code = MPV) 9.1 7.4-10.4 N [facility] CenterCqopmhoIMZLZDXNZS4883-54-23 09:04:00 Test Item Value Reference Range Interpretation Comments RDW (test code = RDW) 13.9 11.5-14.5 N [facility] CenterOuhggqdHCIOOURNUL9976-12-73 09:04:00 Test Item Value Reference Range Interpretation Comments MCH (test code = MCH) 33.9 pg 27.0-31.0 H [facility] HospitalBowwneaHLQZBLNXH8122-04-62 09:04:00 Test Item Value Reference Range Interpretation Comments Glucose Lvl (test code = Glucose Lvl) 95 70-99 N [facility] HospitalMmavgdlSNXFRIMEP2740-03-48 09:04:00 Test Item Value Reference Range Interpretation Comments BUN (test code = BUN) 9 7-22 N [facility] HospitalUssixapFIPTCNLUG0610-38-02 09:04:00 Test Item Value Reference Range Interpretation Comments Creatinine Lvl (test code = Creatinine 0.6 0.5-1.4 N Lvl) [facility] HospitalWokapbaVNNZMXYDT2216-75-72 09:04:00 Test Item Value Reference Range Interpretation Comments Sodium Lvl (test code = Sodium Lvl) 141 135-145 N [facility] HospitalCiwcchrURVMZZJNO5901-73-48 09:04:00 Test Item Value Reference Range Interpretation Comments Potassium Lvl (test code = Potassium 4.1 3.5-5.1 N Lvl) [facility] HospitalPzyxeasRVVOUEQOQ3066-58-72 09:04:00 Test Item Value Reference Range Interpretation Comments Chloride Lvl (test code = Chloride Lvl) 107 95-109 N [facility] HospitalRnsxamxKFGWGRNZG3950-29-40 09:04:00 Test Item Value Reference Range Interpretation Comments CO2 (test code = CO2) 25 24-32 N [facility] HospitalMfzagebCPUMLENEG4157-02-11 09:04:00 Test Item Value Reference Range Interpretation Comments Calcium Lvl (test code = Calcium Lvl) 9.0 8.5-10.5 N [facility] HospitalVvxviouHLFXLHKEB7598-68-99 09:04:00 Test Item Value Reference Range Interpretation Comments AGAP (test code = AGAP) 13.1 10.0-20.0 N [facility] CenterFycxpapSQJJSGPPLK5748-43-90 09:04:00 Test Item Value Reference Range Interpretation Comments Macrocyte (test code = 1+ *ABN*(09/18/2011 A Macrocyte) 04:04:00) [facility] CenterVqidsdvPDTLDPLSHC8511-13-68 09:04:00 Test Item Value Reference Range Interpretation Comments Monocytes # (test code = Monocytes #) 0.9 <=0.8 H [facility] CenterGuzqwulCLYOHANLMK6369-37-66 09:04:00 Test Item Value Reference Range Interpretation Comments Lymphocytes # (test code = Lymphocytes 2.1 1.0-5.5 N #) [facility] CenterTewihbhOOUVCFSFEA5754-42-15 09:04:00 Test Item Value Reference Range Interpretation Comments Segs (test code = Segs) 54.6 45.0-75.0 N [facility] CenterDgkgtupJRKGSPYRBJ3066-73-98 09:04:00 Test Item Value Reference Range Interpretation Comments Eosinophils # (test code = Eosinophils 0.2 <=0.5 N #) [facility] CenterYutelepCJOAWTAGXQ6146-63-84 09:04:00 Test Item Value Reference Range Interpretation Comments Eosinophils (test code = Eosinophils) 2.3 <=4.0 N [facility] CenterBzlrtggBBDBIAMAUA6207-28-83 09:04:00 Test Item Value Reference Range Interpretation Comments Monocytes (test code = Monocytes) 12.9 2.0-12.0 H [facility] CenterAgpuzvbBTWXXHSEYK8763-51-52 09:04:00 Test Item Value Reference Range Interpretation Comments Lymphocytes (test code = Lymphocytes) 29.9 20.0-40.0 N [facility] CenterMrrifmwGYWQOCXJEK5562-59-12 09:04:00 Test Item Value Reference Range Interpretation Comments Basophils (test code = Basophils) 0.3 <=1.0 N [facility] CenterIpajoqjOSAOXTCSDZ0586-71-76 09:04:00 Test Item Value Reference Range Interpretation Comments Basophils # (test code = Basophils #) 0.0 <=0.2 N [facility] CenterBnnuyxaPZJLVNEOTS7764-61-72 09:04:00 Test Item Value Reference Range Interpretation Comments Segs-Bands # (test code = Segs-Bands #) 3.8 1.5-8.1 N [facility] CenterUpwcfswFBTAGEJTKL9838-47-80 09:04:00 Test Item Value Reference Range Interpretation Comments Hct (test code = Hct) 43.5 42.0-54.0 N [facility] CenterQpcyzquLSYMNCTXAW2121-15-83 09:04:00 Test Item Value Reference Range Interpretation Comments MCV (test code = MCV) 99.4 80.0-94.0 H [facility] CenterEltrubbPBPKJBWDZI1493-05-62 09:04:00 Test Item Value Reference Range Interpretation Comments Hgb (test code = Hgb) 14.8 14.0-18.0 N [facility] CenterIvcdteaDTEKWGNVCI4218-00-74 09:04:00 Test Item Value Reference Range Interpretation Comments RBC (test code = RBC) 4.37 4.70-6.10 L [facility] CenterKepltskXRTYKXQRYW2256-92-89 09:04:00 Test Item Value Reference Range Interpretation Comments WBC (test code = WBC) 6.9 3.7-10.4 N [facility] [facility]VlhirpqDXUAVZBPPT8130-47-80 09:04:00 Test Item Value Reference Range Interpretation Comments Platelet (test code = Platelet) 178 133-450 N [facility] CenterOdzrxeqVERPULJMRN3257-57-10 09:04:00 Test Item Value Reference Range Interpretation Comments MCHC (test code = MCHC) 34.2 32.0-36.0 N [facility] CenterGetrpohZEHTRERNWN3461-68-98 09:04:00 Test Item Value Reference Range Interpretation Comments MPV (test code = MPV) 9.1 7.4-10.4 N [facility] CenterXdibqjlTIAPSXAPKY7613-82-03 09:04:00 Test Item Value Reference Range Interpretation Comments RDW (test code = RDW) 13.9 11.5-14.5 N [facility] CenterAjzuudgJFGTDWTBZC7587-70-26 09:04:00 Test Item Value Reference Range Interpretation Comments MCH (test code = MCH) 33.9 pg 27.0-31.0 [facility]FnpkllhWTIQVOGON7457-29-49 09:04:00 Test Item Value Reference Range Interpretation Comments Glucose Lvl (test code = Glucose Lvl) 95 70-99 N [facility] HospitalSftrdtvXXYEODZQT1681-23-55 09:04:00 Test Item Value Reference Range Interpretation Comments BUN (test code = BUN) 9 7-22 N [facility] HospitalXnthbzaGHSCJNVFU7765-35-65 09:04:00 Test Item Value Reference Range Interpretation Comments Creatinine Lvl (test code = Creatinine 0.6 0.5-1.4 N Lvl) [facility] HospitalJbpwyuxUNLZBFFAI9672-89-66 09:04:00 Test Item Value Reference Range Interpretation Comments Sodium Lvl (test code = Sodium Lvl) 141 135-145 N [facility] HospitalRngotcdSAVJZVDDF9906-25-31 09:04:00 Test Item Value Reference Range Interpretation Comments Potassium Lvl (test code = Potassium 4.1 3.5-5.1 N Lvl) [facility] HospitalSwqfnhxEYGPOEGXY7247-60-44 09:04:00 Test Item Value Reference Range Interpretation Comments Chloride Lvl (test code = Chloride Lvl) 107 95-109 N [facility] HospitalJrqtvuoYEWJZJJLD1281-75-94 09:04:00 Test Item Value Reference Range Interpretation Comments CO2 (test code = CO2) 25 24-32 N [facility] HospitalKihdhjfTFQATLSWQ1907-76-13 09:04:00 Test Item Value Reference Range Interpretation Comments Calcium Lvl (test code = Calcium Lvl) 9.0 8.5-10.5 N [facility] HospitalDcmpajuLTKCZURUM4234-49-40 09:04:00 Test Item Value Reference Range Interpretation Comments AGAP (test code = AGAP) 13.1 10.0-20.0 N [facility] CenterRhqjmpuJEKOBTTJWU6400-45-86 09:04:00 Test Item Value Reference Range Interpretation Comments Macrocyte (test code = 1+ *ABN*(09/18/2011 A Macrocyte) 04:04:00) [facility] CenterZlwfrfcZFCEGDEYVC3848-55-05 09:04:00 Test Item Value Reference Range Interpretation Comments Monocytes # (test code 0.9 See_Comment H [Aut omated message] The = Monocytes #) system which generated this result tra nsmitted reference range : <=0.8. The reference r jessika was not used to int erpret this result as normal/abnormal . [facility] CenterPdztnctEONNLJLYBI2544-65-88 09:04:00 Test Item Value Reference Range Interpretation Comments Lymphocytes # (test code = Lymphocytes 2.1 1.0-5.5 N #) [facility] CenterNsfnmynLXDASIZIDN1982-53-24 09:04:00 Test Item Value Reference Range Interpretation Comments Segs (test code = Segs) 54.6 45.0-75.0 N [facility] CenterDnkrqdtEFYDQGPFKY9996-13-20 09:04:00 Test Item Value Reference Range Interpretation Comments Eosinophils # (test code 0.2 See_Comment N [A utomated message] The = Eosinophils #) system whic h generated this result tra nsmitted reference range : <=0.5. The reference r jessika was not used to int erpret this result as normal/abnormal . [facility] CenterWytwneiJKOKOSUDHF7817-29-50 09:04:00 Test Item Value Reference Range Interpretation Comments Eosinophils (test code = 2.3 See_Comment N [A utomated message] The Eosinophils) system which ge nerated this result tra nsmitted reference range : <=4.0. The reference r jessika was not used to int erpret this result as normal/abnormal . [facility] CenterQqdvatrIPOMESGWSU7773-67-89 09:04:00 Test Item Value Reference Range Interpretation Comments Monocytes (test code = Monocytes) 12.9 2.0-12.0 H [facility] CenterVpfpkxqDYNSJZERCW2167-38-31 09:04:00 Test Item Value Reference Range Interpretation Comments Lymphocytes (test code = Lymphocytes) 29.9 20.0-40.0 N [facility] CenterCttxjcwIIIZMBZAIE3945-98-23 09:04:00 Test Item Value Reference Range Interpretation Comments Basophils (test code = 0.3 See_Comment N [Aut omated message] The Basophils) system which ge nerated this result tra nsmitted reference range : <=1.0. The reference r jessika was not used to int erpret this result as normal/abnormal . [facility] CenterGrqzlxbHZKIVTZVZA2385-01-77 09:04:00 Test Item Value Reference Range Interpretation Comments Basophils # (test code 0.0 See_Comment N [Aut omated message] The = Basophils #) system which generated this result tra nsmitted reference range : <=0.2. The reference r jessika was not used to int erpret this result as normal/abnormal . [facility] CenterTubfuhqIKZBOGMMWS7420-84-70 09:04:00 Test Item Value Reference Range Interpretation Comments Segs-Bands # (test code = Segs-Bands #) 3.8 1.5-8.1 N [facility] CenterEqjpyymXUIFCIGIBU5723-30-87 09:04:00 Test Item Value Reference Range Interpretation Comments Hct (test code = Hct) 43.5 42.0-54.0 N [facility] CenterRxbkhdvPXFSZBTDDD5671-33-13 09:04:00 Test Item Value Reference Range Interpretation Comments MCV (test code = MCV) 99.4 80.0-94.0 H [facility] CenterBnrkiaeKTTCNVQPCR5389-40-18 09:04:00 Test Item Value Reference Range Interpretation Comments Hgb (test code = Hgb) 14.8 14.0-18.0 N [facility] CenterVgahmttAZVUDTZSRE5602-26-43 09:04:00 Test Item Value Reference Range Interpretation Comments RBC (test code = RBC) 4.37 4.70-6.10 L [facility] CenterBaqavykITYKTNDSTK6726-23-70 09:04:00 Test Item Value Reference Range Interpretation Comments WBC (test code = WBC) 6.9 3.7-10.4 N [facility] CenterPpblkxjQOHBRJYAJP5544-54-85 09:04:00 Test Item Value Reference Range Interpretation Comments Platelet (test code = Platelet) 178 133-450 N [facility] CenterNxiewwdBOGLNNTLBT7974-71-65 09:04:00 Test Item Value Reference Range Interpretation Comments MCHC (test code = MCHC) 34.2 32.0-36.0 N [facility] CenterSagnwmhOWKXJYVBJK8795-27-75 09:04:00 Test Item Value Reference Range Interpretation Comments MPV (test code = MPV) 9.1 7.4-10.4 N [facility] CenterIecpgukLRRVQRKRTJ6648-03-08 09:04:00 Test Item Value Reference Range Interpretation Comments RDW (test code = RDW) 13.9 11.5-14.5 N [facility] CenterBfoerlbDCLJTWEHEI4027-69-23 09:04:00 Test Item Value Reference Range Interpretation Comments MCH (test code = MCH) 33.9 pg 27.0-31.0 H [facility] HospitalYllilqtDDBJZXLNY3081-12-69 09:04:00 Test Item Value Reference Range Interpretation Comments Glucose Lvl (test code = Glucose Lvl) 95 70-99 N [facility] HospitalNakcvnqCTUQUJGDJ0240-49-03 09:04:00 Test Item Value Reference Range Interpretation Comments BUN (test code = BUN) 9 7-22 N [facility] HospitalVpfwxdaIDOZAOEFS3066-09-96 09:04:00 Test Item Value Reference Range Interpretation Comments Creatinine Lvl (test code = Creatinine 0.6 0.5-1.4 N Lvl) [facility] HospitalTlyswxfMADSBUGWP7910-67-59 09:04:00 Test Item Value Reference Range Interpretation Comments Sodium Lvl (test code = Sodium Lvl) 141 135-145 N [facility] HospitalJlbgzrfXMHKALDSZ5519-55-69 09:04:00 Test Item Value Reference Range Interpretation Comments Potassium Lvl (test code = Potassium 4.1 3.5-5.1 N Lvl) [facility] HospitalWpyvoefXSHHPTHVG1685-91-62 09:04:00 Test Item Value Reference Range Interpretation Comments Chloride Lvl (test code = Chloride Lvl) 107 95-109 N [facility] HospitalJdevbzoSIQWGPYQH1545-46-04 09:04:00 Test Item Value Reference Range Interpretation Comments CO2 (test code = CO2) 25 24-32 N [facility] HospitalRgzeqceVKOBBFHRP8316-44-30 09:04:00 Test Item Value Reference Range Interpretation Comments Calcium Lvl (test code = Calcium Lvl) 9.0 8.5-10.5 N [facility] HospitalLydcaeyWVLWQITZY4260-59-28 09:04:00 Test Item Value Reference Range Interpretation Comments AGAP (test code = AGAP) 13.1 10.0-20.0 N [facility]MdsqpbpWfaeqodoqbdt4933-57-53 14:00:00 Test Item Value Reference Range Interpretation Comments Culture: Urine (test code = Culture: Urine) [facility] HospitalGjgxwvbOcuekgfcczrk9794-79-77 14:00:00 Test Item Value Reference Range Interpretation Comments Culture: Urine (test code = Culture: Urine) [facility] HospitalXyexpjpBkvbgbiohudg2701-26-44 14:00:00 Test Item Value Reference Range Interpretation Comments Culture: Urine (test code = Culture: Urine) [facility] HospitalKtwxonyWswpluudakbj1005-19-12 14:00:00 Test Item Value Reference Range Interpretation Comments Culture: Urine (test code = Culture: Urine) [facility] HospitalMiyeohtBaiinxkzzjiw9333-38-40 14:00:00 Test Item Value Reference Range Interpretation Comments Culture: Urine (test code = Culture: Urine) [facility] HospitalIpueakcBpsnnslzvrwm6331-45-27 14:00:00 Test Item Value Reference Range Interpretation Comments Culture: Urine (test code = Culture: Urine) [facility] HospitalZvszifgSrsecqhpmyab0761-58-49 14:00:00 Test Item Value Reference Range Interpretation Comments Culture: Urine (test code = Culture: Urine) [facility] HospitalYvgdqqiKeinknxovicd1221-03-76 14:00:00 Test Item Value Reference Range Interpretation Comments Culture: Urine (test code = Culture: Urine) [facility] HospitalElmjofnTkxufonvvfdg2939-20-05 14:00:00 Test Item Value Reference Range Interpretation Comments Culture: Urine (test code = Culture: Urine) [facility] HospitalTbuwrihMzsxzkasqsmp0184-82-95 14:00:00 Test Item Value Reference Range Interpretation Comments Culture: Urine (test code = Culture: Urine) [facility]PmxcolaJTKAOMCKYJ9857-40-42 13:25:00 Test Item Value Reference Range Interpretation Comments UA Urobilinogen (test code *NA*(09/16/2011 0.1-1.0 = UA Urobilinogen) 08:25:00) [facility] SystemChrrpsnFANVXOBJQN4817-96-88 13:25:00 Test Item Value Reference Range Interpretation Comments UA WBC (test code = UA WBC) no gt <=5 N [facility] SystemRahdsejEQUAGAUNYK6099-78-74 13:25:00 Test Item Value Reference Range Interpretation Comments UA RBC (test code = UA RBC) 1 <=2 N [facility] SystemKcdswtxYWGGHUNWFB8149-79-68 13:25:00 Test Item Value Reference Range Interpretation Comments UA Mucus (test code = Few /LPF UA Mucus) *NA*(09/16/2011 08:25:00) [facility] SystemXvgoodzYMDTOVITAK4695-50-76 13:25:00 Test Item Value Reference Range Interpretation Comments UA Ketones (test code Negative mg/dL = UA Ketones) *NA*(09/16/2011 08:25:00) [facility] SystemCtrpmrnSDPXUJBOYL6875-03-51 13:25:00 Test Item Value Reference Range Interpretation Comments UA Bili (test code = Negative *NA*(09/16/2011 UA Bili) 08:25:00) [facility] SystemMshitxeXFEBNUSRMP2177-94-91 13:25:00 Test Item Value Reference Range Interpretation Comments UA Blood (test code = Negative (09/16/2011 N UA Blood) 08:25:00) [facility] SystemJcmdxppYGTQPLNULK9680-02-52 13:25:00 Test Item Value Reference Range Interpretation Comments UA Nitrite (test code Negative (09/16/2011 N = UA Nitrite) 08:25:00) [facility] SystemAgizujiMFOBQXLZAS2508-67-48 13:25:00 Test Item Value Reference Range Interpretation Comments UA Leuk Est (test Negative (09/16/2011 N code = UA Leuk Est) 08:25:00) [facility] SystemSrznijiJETWMPQILX5863-35-87 13:25:00 Test Item Value Reference Range Interpretation Comments UA Sq Epi (test code Occasional /LPF = UA Sq Epi) *NA*(09/16/2011 08:25:00) [facility] SystemBrqoxehCAJTUGFUIR8413-10-03 13:25:00 Test Item Value Reference Range Interpretation Comments UA Glucose (test code Negative mg/dL = UA Glucose) *NA*(09/16/2011 08:25:00) [facility] SystemVflgqojZUWOLDLDKY6771-54-41 13:25:00 Test Item Value Reference Range Interpretation Comments UA Protein (test code Negative mg/dL N = UA Protein) (09/16/2011 08:25:00) [facility] SystemCjvwqhpIQPDJKXFER4966-87-02 13:25:00 Test Item Value Reference Range Interpretation Comments UA Color (test code = Yellow *NA*(09/16/2011 UA Color) 08:25:00) [facility] SystemXkysubxCDWINFLMWH5858-91-37 13:25:00 Test Item Value Reference Range Interpretation Comments UA pH (test code = UA pH) 5.5 5.0-8.0 N [facility]SfdxywxXQKKIFVBJO2266-98-70 13:25:00 Test Item Value Reference Range Interpretation Comments UA Spec Grav (test code = UA Spec Grav) 1.017 N [facility] CampusFkytwjhLQWBJGDQKO2126-73-94 13:25:00 Test Item Value Reference Range Interpretation Comments UA Turbidity (test code = Clear (09/16/2011 N UA Turbidity) 08:25:00) [facility] SystemIkkqfvwKHUXWDMJZJ5139-31-70 13:25:00 Test Item Value Reference Range Interpretation Comments UA Urobilinogen (test code *NA*(09/16/2011 0.1-1.0 = UA Urobilinogen) 08:25:00) [facility] SystemGalnfjzWNZVLGPPBL3699-11-32 13:25:00 Test Item Value Reference Range Interpretation Comments UA WBC (test code = no gt See_Comment N [Automa lorie message] The UA WBC) system which ge nerated this result transmit lorie reference range : <=5. The reference range was not used to interpr et this result as asher l/abnormal. [facility] CampusApbiwprJTZLDZJFEC3363-50-01 13:25:00 Test Item Value Reference Range Interpretation Comments UA RBC (test code = 1 See_Comment N [Automa lorie message] The UA RBC) system which ge nerated this result transmit lorie reference range : <=2. The reference range was not used to interpr et this result as asher l/abnormal. [facility] SystemFozoomwSKTSGDXWGF0641-26-12 13:25:00 Test Item Value Reference Range Interpretation Comments UA Mucus (test code = Few /LPF UA Mucus) *NA*(09/16/2011 08:25:00) [facility] SystemSoazuekGFBQLEIZWI2557-67-56 13:25:00 Test Item Value Reference Range Interpretation Comments UA Ketones (test code Negative mg/dL = UA Ketones) *NA*(09/16/2011 08:25:00) [facility] SystemRipcwfsQINEKZWDTY9246-66-10 13:25:00 Test Item Value Reference Range Interpretation Comments UA Urobilinogen (test code *NA*(09/16/2011 0.1-1.0 = UA Urobilinogen) 08:25:00) [facility] SystemDuuvlqwJWBRPZROEF8300-41-05 13:25:00 Test Item Value Reference Range Interpretation Comments UA Bili (test code = Negative *NA*(09/16/2011 UA Bili) 08:25:00) [facility] SystemVitywpaEPBSVOTBLO6510-52-81 13:25:00 Test Item Value Reference Range Interpretation Comments UA WBC (test code = UA WBC) no gt <=5 N [facility] SystemVniencbUVAKLLHUOV6422-09-23 13:25:00 Test Item Value Reference Range Interpretation Comments UA RBC (test code = UA RBC) 1 <=2 N [facility] SystemQrtdknxZYVZRUZLAY9490-26-00 13:25:00 Test Item Value Reference Range Interpretation Comments UA Mucus (test code = Few /LPF UA Mucus) *NA*(09/16/2011 08:25:00) [facility] SystemAinxztgHUWHFIEBVF0977-44-77 13:25:00 Test Item Value Reference Range Interpretation Comments UA Ketones (test code Negative mg/dL = UA Ketones) *NA*(09/16/2011 08:25:00) [facility] SystemSbveanpPZFCXUDEGH0245-85-67 13:25:00 Test Item Value Reference Range Interpretation Comments UA Bili (test code = Negative *NA*(09/16/2011 UA Bili) 08:25:00) [facility] SystemMwehayeICSTXFRSJA7590-30-75 13:25:00 Test Item Value Reference Range Interpretation Comments UA Blood (test code = Negative (09/16/2011 N UA Blood) 08:25:00) [facility] SystemZofvfhcLZWZCUDCGD6109-62-14 13:25:00 Test Item Value Reference Range Interpretation Comments UA Nitrite (test code Negative (09/16/2011 N = UA Nitrite) 08:25:00) [facility] SystemQgifcpaPBSQGGPHEI1430-81-37 13:25:00 Test Item Value Reference Range Interpretation Comments UA Leuk Est (test Negative (09/16/2011 N code = UA Leuk Est) 08:25:00) [facility] SystemQtggrgzYNVWJBOUGQ6141-96-25 13:25:00 Test Item Value Reference Range Interpretation Comments UA Sq Epi (test code Occasional /LPF = UA Sq Epi) *NA*(09/16/2011 08:25:00) [facility] SystemOyhmpunOJSHJHHWHP9236-09-89 13:25:00 Test Item Value Reference Range Interpretation Comments UA Glucose (test code Negative mg/dL = UA Glucose) *NA*(09/16/2011 08:25:00) [facility] SystemShghdxcYIITFTKTCN3540-67-28 13:25:00 Test Item Value Reference Range Interpretation Comments UA Blood (test code = Negative (09/16/2011 N UA Blood) 08:25:00) [facility] SystemYweockeQTZJCLZNCG9174-37-22 13:25:00 Test Item Value Reference Range Interpretation Comments UA Protein (test code Negative mg/dL N = UA Protein) (09/16/2011 08:25:00) [facility] SystemDtnldurATVNCMSWHB6321-12-45 13:25:00 Test Item Value Reference Range Interpretation Comments UA Color (test code = Yellow *NA*(09/16/2011 UA Color) 08:25:00) [facility] SystemVagfvxgRUNBAOQPQD6428-83-76 13:25:00 Test Item Value Reference Range Interpretation Comments UA pH (test code = UA pH) 5.5 5.0-8.0 N [facility] SystemNakyaakGYWYXCRJKX3748-47-09 13:25:00 Test Item Value Reference Range Interpretation Comments UA Spec Grav (test code = UA Spec Grav) 1.017 N [facility] SystemZazvzxrEUOICMIPNC1047-51-15 13:25:00 Test Item Value Reference Range Interpretation Comments UA Turbidity (test code = Clear (09/16/2011 N UA Turbidity) 08:25:00) [facility] SystemZwrcmzbOPOAQJUPPQ5061-58-74 13:25:00 Test Item Value Reference Range Interpretation Comments UA Nitrite (test code Negative (09/16/2011 N = UA Nitrite) 08:25:00) [facility] SystemDofgnjnXNGTPPDSSJ3082-43-27 13:25:00 Test Item Value Reference Range Interpretation Comments UA Leuk Est (test Negative (09/16/2011 N code = UA Leuk Est) 08:25:00) [facility] SystemPcywbmtCLDNPQUUFL6334-00-64 13:25:00 Test Item Value Reference Range Interpretation Comments UA Sq Epi (test code Occasional /LPF = UA Sq Epi) *NA*(09/16/2011 08:25:00) [facility] SystemAnsvymhUKZWVMFWLJ0677-68-34 13:25:00 Test Item Value Reference Range Interpretation Comments UA Glucose (test code Negative mg/dL = UA Glucose) *NA*(09/16/2011 08:25:00) [facility] SystemHtyjquyQJDUPNNLHO2964-19-81 13:25:00 Test Item Value Reference Range Interpretation Comments UA Protein (test code Negative mg/dL N = UA Protein) (09/16/2011 08:25:00) [facility] SystemCdhunrzMZKLLJALKY8226-71-27 13:25:00 Test Item Value Reference Range Interpretation Comments UA Color (test code = Yellow *NA*(09/16/2011 UA Color) 08:25:00) [facility] SystemAmknqpxETVNDPTTTD7662-37-58 13:25:00 Test Item Value Reference Range Interpretation Comments UA pH (test code = UA pH) 5.5 5.0-8.0 N [facility] SystemIcfbonrIIKFIRQQHE9671-41-09 13:25:00 Test Item Value Reference Range Interpretation Comments UA Spec Grav (test code = UA Spec Grav) 1.017 N [facility] SystemKhyzjasKWOSVQFCBS9530-91-77 13:25:00 Test Item Value Reference Range Interpretation Comments UA Turbidity (test code = Clear (09/16/2011 N UA Turbidity) 08:25:00) [facility] SystemFaqxkvqLQADWKUILY7521-18-74 13:25:00 Test Item Value Reference Range Interpretation Comments UA Urobilinogen (test code *NA*(09/16/2011 0.1-1.0 = UA Urobilinogen) 08:25:00) [facility] SystemPorcbiqUFUKUESZVJ5802-00-31 13:25:00 Test Item Value Reference Range Interpretation Comments UA WBC (test code = UA WBC) no gt <=5 N [facility] SystemHtrbfpbAKODPFOCFA3873-79-02 13:25:00 Test Item Value Reference Range Interpretation Comments UA RBC (test code = UA RBC) 1 <=2 N [facility] SystemJplssrmOXLRALILFQ4198-34-66 13:25:00 Test Item Value Reference Range Interpretation Comments UA Mucus (test code = Few /LPF UA Mucus) *NA*(09/16/2011 08:25:00) [facility] SystemWnlbvjtUXCTUFDSFH4995-62-86 13:25:00 Test Item Value Reference Range Interpretation Comments UA Ketones (test code Negative mg/dL = UA Ketones) *NA*(09/16/2011 08:25:00) [facility] SystemHyhlffsVITQVCKIWE0982-88-14 13:25:00 Test Item Value Reference Range Interpretation Comments UA Bili (test code = Negative *NA*(09/16/2011 UA Bili) 08:25:00) [facility] SystemUwzzcjtIDTPGFZBVW4305-66-00 13:25:00 Test Item Value Reference Range Interpretation Comments UA Blood (test code = Negative (09/16/2011 N UA Blood) 08:25:00) [facility] SystemGafasxcFNUGGJWNSF3020-57-06 13:25:00 Test Item Value Reference Range Interpretation Comments UA Nitrite (test code Negative (09/16/2011 N = UA Nitrite) 08:25:00) [facility] SystemAtysqbfDIIIDMVUFB2264-15-82 13:25:00 Test Item Value Reference Range Interpretation Comments UA Leuk Est (test Negative (09/16/2011 N code = UA Leuk Est) 08:25:00) [facility] SystemOykcchqQEDTUWLJFH6007-36-98 13:25:00 Test Item Value Reference Range Interpretation Comments UA Sq Epi (test code Occasional /LPF = UA Sq Epi) *NA*(09/16/2011 08:25:00) [facility] SystemHqlwlogQIUYKWBNLF0666-35-20 13:25:00 Test Item Value Reference Range Interpretation Comments UA Glucose (test code Negative mg/dL = UA Glucose) *NA*(09/16/2011 08:25:00) [facility] SystemPrftxnsLJTYVLCAOG1160-77-43 13:25:00 Test Item Value Reference Range Interpretation Comments UA Protein (test code Negative mg/dL N = UA Protein) (09/16/2011 08:25:00) [facility] SystemBrqentnUXELDTAEAJ5813-20-19 13:25:00 Test Item Value Reference Range Interpretation Comments UA Color (test code = Yellow *NA*(09/16/2011 UA Color) 08:25:00) [facility] SystemVatsfruYNBMMURNAQ1665-07-47 13:25:00 Test Item Value Reference Range Interpretation Comments UA pH (test code = UA pH) 5.5 5.0-8.0 N [facility] SystemAwivsarREDRHOJFVU9226-64-20 13:25:00 Test Item Value Reference Range Interpretation Comments UA Spec Grav (test code = UA Spec Grav) 1.017 N [facility] SystemKamtoomDEQTVHIERG7534-23-88 13:25:00 Test Item Value Reference Range Interpretation Comments UA Turbidity (test code = Clear (09/16/2011 N UA Turbidity) 08:25:00) [facility]bomsmgJIJGYEAJZL9860-85-93 13:25:00 Test Item Value Reference Range Interpretation Comments UA Urobilinogen (test code *NA*(09/16/2011 0.1-1.0 = UA Urobilinogen) 08:25:00) [facility] CampusUlottrwSRXPGJZSZA6760-60-93 13:25:00 Test Item Value Reference Range Interpretation Comments UA WBC (test code = no gt See_Comment N [Automa lorie message] The UA WBC) system which ge nerated this result transmit lorie reference range : <=5. The reference range was not used to interpr et this result as asher l/abnormal. [facility] CampusKdzseiuNEJDELDWNT9842-02-28 13:25:00 Test Item Value Reference Range Interpretation Comments UA RBC (test code = 1 See_Comment N [Automa lorie message] The UA RBC) system which ge nerated this result transmit lorie reference range : <=2. The reference range was not used to interpr et this result as asher l/abnormal. [facility] CampusUqlqqclKRMYMTAJMF3812-40-45 13:25:00 Test Item Value Reference Range Interpretation Comments UA Mucus (test code = Few /LPF UA Mucus) *NA*(09/16/2011 08:25:00) [facility] CampusAppkbdnXIXYVFWUNM3987-32-79 13:25:00 Test Item Value Reference Range Interpretation Comments UA Ketones (test code Negative mg/dL = UA Ketones) *NA*(09/16/2011 08:25:00) [facility] CampusPwgxnmfAPDARNNOQA4813-63-10 13:25:00 Test Item Value Reference Range Interpretation Comments UA Bili (test code = Negative *NA*(09/16/2011 UA Bili) 08:25:00) [facility] CampusHrfgluyDUKFDGYCJE9222-47-28 13:25:00 Test Item Value Reference Range Interpretation Comments UA Blood (test code = Negative (09/16/2011 N UA Blood) 08:25:00) [facility] CampusIozwfemCIXXKWACVB2757-88-20 13:25:00 Test Item Value Reference Range Interpretation Comments UA Nitrite (test code Negative (09/16/2011 N = UA Nitrite) 08:25:00) [facility]KtpdvevSXXPEIMSYF6788-89-26 13:25:00 Test Item Value Reference Range Interpretation Comments UA Leuk Est (test Negative (09/16/2011 N code = UA Leuk Est) 08:25:00) [facility] SystemNrashoeXHSRJWJZND5456-48-03 13:25:00 Test Item Value Reference Range Interpretation Comments UA Sq Epi (test code Occasional /LPF = UA Sq Epi) *NA*(09/16/2011 08:25:00) [facility] SystemJekzrrbLQCIOPGNWT1084-39-47 13:25:00 Test Item Value Reference Range Interpretation Comments UA Glucose (test code Negative mg/dL = UA Glucose) *NA*(09/16/2011 08:25:00) [facility] SystemOnrkcucVAIHKWCAED9082-42-40 13:25:00 Test Item Value Reference Range Interpretation Comments UA Protein (test code Negative mg/dL N = UA Protein) (09/16/2011 08:25:00) [facility] SystemMrvsxvyUFSAUIFAZJ7748-16-81 13:25:00 Test Item Value Reference Range Interpretation Comments UA Color (test code = Yellow *NA*(09/16/2011 UA Color) 08:25:00) [facility] SystemQhordowZBABAYUUXS7507-97-04 13:25:00 Test Item Value Reference Range Interpretation Comments UA pH (test code = UA pH) 5.5 5.0-8.0 N [facility] SystemUfvukhaDOUXSKDSAE5563-89-44 13:25:00 Test Item Value Reference Range Interpretation Comments UA Spec Grav (test code = UA Spec Grav) 1.017 N [facility] SystemWosebpcVEJJSLVKGZ5532-05-84 13:25:00 Test Item Value Reference Range Interpretation Comments UA Turbidity (test code = Clear (09/16/2011 N UA Turbidity) 08:25:00) [facility] SystemMtaojxkMKOYGAMYAQ9112-58-73 13:25:00 Test Item Value Reference Range Interpretation Comments UA Urobilinogen (test code *NA*(09/16/2011 0.1-1.0 = UA Urobilinogen) 08:25:00) [facility] SystemUgjpxygIFVGRZZCLT9118-04-29 13:25:00 Test Item Value Reference Range Interpretation Comments UA WBC (test code = no gt See_Comment N [Automa lorie message] The UA WBC) system which ge nerated this result transmit lorie reference range : <=5. The reference range was not used to interpr et this result as asher l/abnormal. [facility] SystemGhdgqfnEPMDPKBRQE3918-90-78 13:25:00 Test Item Value Reference Range Interpretation Comments UA RBC (test code = 1 See_Comment N [Automa lorie message] The UA RBC) system which ge nerated this result transmit lorie reference range : <=2. The reference range was not used to interpr et this result as asher l/abnormal. [facility] SystemSnzqebgUSVCEYTFTT2422-63-34 13:25:00 Test Item Value Reference Range Interpretation Comments UA Mucus (test code = Few /LPF UA Mucus) *NA*(09/16/2011 08:25:00) [facility] SystemJkoozcxADHZZAEFDF5018-22-33 13:25:00 Test Item Value Reference Range Interpretation Comments UA Ketones (test code Negative mg/dL = UA Ketones) *NA*(09/16/2011 08:25:00) [facility] SystemPvnuoicNCWVWCLFJS6522-10-66 13:25:00 Test Item Value Reference Range Interpretation Comments UA Bili (test code = Negative *NA*(09/16/2011 UA Bili) 08:25:00) [facility] SystemBbbdnkrHTBFTAJQXU7840-03-63 13:25:00 Test Item Value Reference Range Interpretation Comments UA Blood (test code = Negative (09/16/2011 N UA Blood) 08:25:00) [facility] SystemQhzgignFWVKZSRYVT3706-23-27 13:25:00 Test Item Value Reference Range Interpretation Comments UA Nitrite (test code Negative (09/16/2011 N = UA Nitrite) 08:25:00) [facility] SystemFxxkvqfAEJWJWDOWI1859-32-80 13:25:00 Test Item Value Reference Range Interpretation Comments UA Leuk Est (test Negative (09/16/2011 N code = UA Leuk Est) 08:25:00) [facility] SystemVjzvxbjHVTQRFPZDD9323-84-67 13:25:00 Test Item Value Reference Range Interpretation Comments UA Sq Epi (test code Occasional /LPF = UA Sq Epi) *NA*(09/16/2011 08:25:00) [facility] SystemPrwfytoBKNFINOWMU8786-35-08 13:25:00 Test Item Value Reference Range Interpretation Comments UA Glucose (test code Negative mg/dL = UA Glucose) *NA*(09/16/2011 08:25:00) [facility] SystemWmngzhpKPKJQSZXQF8856-02-38 13:25:00 Test Item Value Reference Range Interpretation Comments UA Protein (test code Negative mg/dL N = UA Protein) (09/16/2011 08:25:00) [facility] SystemUchsqcdPGTHVYKTVM7403-95-10 13:25:00 Test Item Value Reference Range Interpretation Comments UA Color (test code = Yellow *NA*(09/16/2011 UA Color) 08:25:00) [facility] SystemRogqeijVUEUWBIOKE9000-98-86 13:25:00 Test Item Value Reference Range Interpretation Comments UA pH (test code = UA pH) 5.5 5.0-8.0 N [facility] SystemBhnebduFUIPSQTGWR1609-07-86 13:25:00 Test Item Value Reference Range Interpretation Comments UA Spec Grav (test code = UA Spec Grav) 1.017 N [facility] SystemSoupwueYFBOKBMERN0057-48-52 13:25:00 Test Item Value Reference Range Interpretation Comments UA Turbidity (test code = Clear (09/16/2011 N UA Turbidity) 08:25:00) [facility] SystemWpusfetTRNTNIUDJA9695-92-42 13:25:00 Test Item Value Reference Range Interpretation Comments UA Urobilinogen (test code *NA*(09/16/2011 0.1-1.0 = UA Urobilinogen) 08:25:00) [facility] SystemGmvxsuuFCETLPVVVJ6368-70-96 13:25:00 Test Item Value Reference Range Interpretation Comments UA WBC (test code = no gt See_Comment N [Automa lorie message] The UA WBC) system which ge nerated this result transmit lorie reference range : <=5. The reference range was not used to interpr et this result as asher l/abnormal. [facility] SystemFmmnbaiCMTPLKUSTA8815-48-55 13:25:00 Test Item Value Reference Range Interpretation Comments UA RBC (test code = 1 See_Comment N [Automa lorie message] The UA RBC) system which ge nerated this result transmit lorie reference range : <=2. The reference range was not used to interpr et this result as asher l/abnormal. [facility] SystemXrbeljkJQSEPXGZYQ5213-43-13 13:25:00 Test Item Value Reference Range Interpretation Comments UA Mucus (test code = Few /LPF UA Mucus) *NA*(09/16/2011 08:25:00) [facility] SystemAvzkxqsUHOSYAZJBR5677-00-51 13:25:00 Test Item Value Reference Range Interpretation Comments UA Ketones (test code Negative mg/dL = UA Ketones) *NA*(09/16/2011 08:25:00) [facility] SystemJuuvrorBATEGWWKLJ3521-06-61 13:25:00 Test Item Value Reference Range Interpretation Comments UA Bili (test code = Negative *NA*(09/16/2011 UA Bili) 08:25:00) [facility] SystemBqiybssWBUZWFWJDK4203-27-38 13:25:00 Test Item Value Reference Range Interpretation Comments UA Blood (test code = Negative (09/16/2011 N UA Blood) 08:25:00) [facility] SystemAoldmhxJLGXPPSPRO0588-30-57 13:25:00 Test Item Value Reference Range Interpretation Comments UA Nitrite (test code Negative (09/16/2011 N = UA Nitrite) 08:25:00) [facility] SystemLrnarumCYNIMZBIQT2788-20-49 13:25:00 Test Item Value Reference Range Interpretation Comments UA Leuk Est (test Negative (09/16/2011 N code = UA Leuk Est) 08:25:00) [facility] SystemJsmyjbcJDZXNMRJKV2140-77-29 13:25:00 Test Item Value Reference Range Interpretation Comments UA Sq Epi (test code Occasional /LPF = UA Sq Epi) *NA*(09/16/2011 08:25:00) [facility] SystemPnypfzaIQKBJPFJUN3261-35-93 13:25:00 Test Item Value Reference Range Interpretation Comments UA Glucose (test code Negative mg/dL = UA Glucose) *NA*(09/16/2011 08:25:00) [facility] SystemPacagzxPGUMHJKJOG8714-36-85 13:25:00 Test Item Value Reference Range Interpretation Comments UA Protein (test code Negative mg/dL N = UA Protein) (09/16/2011 08:25:00) [facility] SystemRzrcnubWXIIMZKZDW6997-93-17 13:25:00 Test Item Value Reference Range Interpretation Comments UA Color (test code = Yellow *NA*(09/16/2011 UA Color) 08:25:00) [facility] SystemQldvwnyKWYIKEFHMG7789-66-62 13:25:00 Test Item Value Reference Range Interpretation Comments UA pH (test code = UA pH) 5.5 5.0-8.0 N [facility] SystemXzqnjxnDRBROCUIZJ3084-97-34 13:25:00 Test Item Value Reference Range Interpretation Comments UA Spec Grav (test code = UA Spec Grav) 1.017 N [facility] CampusOgomqtfXTEJWMPAFL3604-10-54 13:25:00 Test Item Value Reference Range Interpretation Comments UA Turbidity (test code = Clear (09/16/2011 N UA Turbidity) 08:25:00) [facility] SystemPeccwbpJDIDYVMEVL4643-04-26 13:25:00 Test Item Value Reference Range Interpretation Comments UA Urobilinogen (test code *NA*(09/16/2011 0.1-1.0 = UA Urobilinogen) 08:25:00) [facility] SystemOexpnwyZLQZURHXMD1432-62-89 13:25:00 Test Item Value Reference Range Interpretation Comments UA WBC (test code = no gt See_Comment N [Automa lorie message] The UA WBC) system which ge nerated this result transmit lorie reference range : <=5. The reference range was not used to interpr et this result as asher l/abnormal. [facility] SystemGktrbjgPKWWMOZLBX0014-93-42 13:25:00 Test Item Value Reference Range Interpretation Comments UA RBC (test code = 1 See_Comment N [Automa lorie message] The UA RBC) system which ge nerated this result transmit lorie reference range : <=2. The reference range was not used to interpr et this result as asher l/abnormal. [facility] SystemSxiayvcLMYUSSRMQI9004-03-51 13:25:00 Test Item Value Reference Range Interpretation Comments UA Mucus (test code = Few /LPF UA Mucus) *NA*(09/16/2011 08:25:00) [facility] SystemHffortaOGUOFSYFLX3705-88-30 13:25:00 Test Item Value Reference Range Interpretation Comments UA Ketones (test code Negative mg/dL = UA Ketones) *NA*(09/16/2011 08:25:00) [facility] SystemMjztgsgBJNPNSZZJS8266-84-62 13:25:00 Test Item Value Reference Range Interpretation Comments UA Bili (test code = Negative *NA*(09/16/2011 UA Bili) 08:25:00) [facility] SystemBhwyjbcIIQDVMTQQJ1329-60-67 13:25:00 Test Item Value Reference Range Interpretation Comments UA Blood (test code = Negative (09/16/2011 N UA Blood) 08:25:00) [facility] SystemBsookryLMPVNGGGIL9643-68-55 13:25:00 Test Item Value Reference Range Interpretation Comments UA Nitrite (test code Negative (09/16/2011 N = UA Nitrite) 08:25:00) [facility] SystemNgmpvcwMTJRNGYKEA0090-36-42 13:25:00 Test Item Value Reference Range Interpretation Comments UA Leuk Est (test Negative (09/16/2011 N code = UA Leuk Est) 08:25:00) [facility] SystemLyafjpyYKZOHSIDAO0382-10-91 13:25:00 Test Item Value Reference Range Interpretation Comments UA Sq Epi (test code Occasional /LPF = UA Sq Epi) *NA*(09/16/2011 08:25:00) [facility] SystemWcbipgsORBXMJVWUI5532-37-89 13:25:00 Test Item Value Reference Range Interpretation Comments UA Glucose (test code Negative mg/dL = UA Glucose) *NA*(09/16/2011 08:25:00) [facility] SystemAwgfnnsIHCDURIVDY2622-31-96 13:25:00 Test Item Value Reference Range Interpretation Comments UA Protein (test code Negative mg/dL N = UA Protein) (09/16/2011 08:25:00) [facility] SystemPychbghGWHTVHIMKO4602-61-46 13:25:00 Test Item Value Reference Range Interpretation Comments UA Color (test code = Yellow *NA*(09/16/2011 UA Color) 08:25:00) [facility] SystemFgcpaijNTFFWEYMYB1149-51-23 13:25:00 Test Item Value Reference Range Interpretation Comments UA pH (test code = UA pH) 5.5 5.0-8.0 N [facility] SystemEphtnfqTUKIEJVPRA3672-08-90 13:25:00 Test Item Value Reference Range Interpretation Comments UA Spec Grav (test code = UA Spec Grav) 1.017 N [facility] SystemPebibjaVXRPRCTVYV4125-24-92 13:25:00 Test Item Value Reference Range Interpretation Comments UA Turbidity (test code = Clear (09/16/2011 N UA Turbidity) 08:25:00) [facility] SystemKvgiaoaASZOXPXAOF2222-57-48 13:25:00 Test Item Value Reference Range Interpretation Comments UA Urobilinogen (test code *NA*(09/16/2011 0.1-1.0 = UA Urobilinogen) 08:25:00) [facility] CampusFtuyvrsEMUWYJAPQP1535-42-39 13:25:00 Test Item Value Reference Range Interpretation Comments UA WBC (test code = no gt See_Comment N [Automa lorie message] The UA WBC) system which ge nerated this result transmit lorie reference range : <=5. The reference range was not used to interpr et this result as asher l/abnormal. [facility] SystemMkwcytnEOASATCKKK8710-47-60 13:25:00 Test Item Value Reference Range Interpretation Comments UA RBC (test code = 1 See_Comment N [Automa lorie message] The UA RBC) system which ge nerated this result transmit lorie reference range : <=2. The reference range was not used to interpr et this result as asher l/abnormal. [facility] SystemRufjgnuIOVFPDRQYW1758-87-68 13:25:00 Test Item Value Reference Range Interpretation Comments UA Mucus (test code = Few /LPF UA Mucus) *NA*(09/16/2011 08:25:00) [facility] SystemSjqygirJPTRCNIEDF8103-98-31 13:25:00 Test Item Value Reference Range Interpretation Comments UA Ketones (test code Negative mg/dL = UA Ketones) *NA*(09/16/2011 08:25:00) [facility] CampusZinpxdsTRNIMJCSXJ6619-06-90 13:25:00 Test Item Value Reference Range Interpretation Comments UA Bili (test code = Negative *NA*(09/16/2011 UA Bili) 08:25:00) [facility] SystemVkvicolAJJNQOVHFX0227-26-70 13:25:00 Test Item Value Reference Range Interpretation Comments UA Blood (test code = Negative (09/16/2011 N UA Blood) 08:25:00) [facility] CampusBpsawwfWGOIPMADNZ4754-73-67 13:25:00 Test Item Value Reference Range Interpretation Comments UA Nitrite (test code Negative (09/16/2011 N = UA Nitrite) 08:25:00) [facility] CampusVmzkszlQJOPNFDWVR6866-04-64 13:25:00 Test Item Value Reference Range Interpretation Comments UA Leuk Est (test Negative (09/16/2011 N code = UA Leuk Est) 08:25:00) [facility] SystemIxpiaocIYBPENSORM9508-75-13 13:25:00 Test Item Value Reference Range Interpretation Comments UA Sq Epi (test code Occasional /LPF = UA Sq Epi) *NA*(09/16/2011 08:25:00) [facility] SystemEqekhghRRWVLZNJKC6838-54-77 13:25:00 Test Item Value Reference Range Interpretation Comments UA Glucose (test code Negative mg/dL = UA Glucose) *NA*(09/16/2011 08:25:00) [facility] SystemLbthtoeGVWLTQFNQZ9468-57-04 13:25:00 Test Item Value Reference Range Interpretation Comments UA Protein (test code Negative mg/dL N = UA Protein) (09/16/2011 08:25:00) [facility] SystemLhqbjdtUTJRYUEVFX0407-49-94 13:25:00 Test Item Value Reference Range Interpretation Comments UA Color (test code = Yellow *NA*(09/16/2011 UA Color) 08:25:00) [facility] SystemQppqcuhVFYSPLRJLP1276-06-49 13:25:00 Test Item Value Reference Range Interpretation Comments UA pH (test code = UA pH) 5.5 5.0-8.0 N [facility] SystemFjlgernXETOMYXDIF7844-56-29 13:25:00 Test Item Value Reference Range Interpretation Comments UA Spec Grav (test code = UA Spec Grav) 1.017 N [facility] SystemKrmyfqcNWJDVPMLIX1083-13-02 13:25:00 Test Item Value Reference Range Interpretation Comments UA Turbidity (test code = Clear (09/16/2011 N UA Turbidity) 08:25:00) [facility] SystemDwgayjoJSKUQFHIBE3220-88-68 13:25:00 Test Item Value Reference Range Interpretation Comments UA Urobilinogen (test code *NA*(09/16/2011 0.1-1.0 = UA Urobilinogen) 08:25:00) [facility] SystemSduulexIOXLZZDBYE8315-43-14 13:25:00 Test Item Value Reference Range Interpretation Comments UA WBC (test code = UA WBC) no gt <=5 N [facility] SystemPjyxtwpEIQPBWBHET4895-54-08 13:25:00 Test Item Value Reference Range Interpretation Comments UA RBC (test code = UA RBC) 1 <=2 N [facility] SystemHbhjnjnINKWHUJBTR7455-27-68 13:25:00 Test Item Value Reference Range Interpretation Comments UA Mucus (test code = Few /LPF UA Mucus) *NA*(09/16/2011 08:25:00) [facility] SystemDbwmapfWECIFTJDDS0207-23-80 13:25:00 Test Item Value Reference Range Interpretation Comments UA Ketones (test code Negative mg/dL = UA Ketones) *NA*(09/16/2011 08:25:00) [facility] SystemLsmruztJTCBZLPOEO4796-64-12 13:25:00 Test Item Value Reference Range Interpretation Comments UA Bili (test code = Negative *NA*(09/16/2011 UA Bili) 08:25:00) [facility] SystemJypsoapAKCEWWBFLM6509-34-30 13:25:00 Test Item Value Reference Range Interpretation Comments UA Blood (test code = Negative (09/16/2011 N UA Blood) 08:25:00) [facility] SystemXfhkgsaRPFGNQVXAB9776-57-60 13:25:00 Test Item Value Reference Range Interpretation Comments UA Nitrite (test code Negative (09/16/2011 N = UA Nitrite) 08:25:00) [facility] SystemCwfqtnrAHXSBHMBSX3537-93-91 13:25:00 Test Item Value Reference Range Interpretation Comments UA Leuk Est (test Negative (09/16/2011 N code = UA Leuk Est) 08:25:00) [facility] SystemDdhjzvvJIWVZQDOTE2095-52-67 13:25:00 Test Item Value Reference Range Interpretation Comments UA Sq Epi (test code Occasional /LPF = UA Sq Epi) *NA*(09/16/2011 08:25:00) [facility] SystemFzmigykZLYCZXTPAP5779-52-83 13:25:00 Test Item Value Reference Range Interpretation Comments UA Glucose (test code Negative mg/dL = UA Glucose) *NA*(09/16/2011 08:25:00) [facility] SystemZuadhrkGYMJIOOVFZ6825-00-49 13:25:00 Test Item Value Reference Range Interpretation Comments UA Protein (test code Negative mg/dL N = UA Protein) (09/16/2011 08:25:00) [facility] SystemSbcfqmtHAMTGRABAX3658-89-22 13:25:00 Test Item Value Reference Range Interpretation Comments UA Color (test code = Yellow *NA*(09/16/2011 UA Color) 08:25:00) [facility] SystemRrpyihdJEDDVBFFYD0938-09-22 13:25:00 Test Item Value Reference Range Interpretation Comments UA pH (test code = UA pH) 5.5 5.0-8.0 N [facility] SystemVftksksMCJDKZOXZN0462-96-99 13:25:00 Test Item Value Reference Range Interpretation Comments UA Spec Grav (test code = UA Spec Grav) 1.017 N [facility] SystemHpfeslqHMSTNUJLMG5815-46-44 13:25:00 Test Item Value Reference Range Interpretation Comments UA Turbidity (test code = Clear (09/16/2011 N UA Turbidity) 08:25:00) [facility] SystemAcglmerOOADVLWEVD4512-17-83 08:42:00 Test Item Value Reference Range Interpretation Comments UA Mucus (test code = Few /LPF UA Mucus) *NA*(09/15/2011 03:42:00) [facility] SystemGjsfygtPNEBTVTYJX9983-53-57 08:42:00 Test Item Value Reference Range Interpretation Comments UA RBC (test code = UA RBC) 1 <=2 N [facility] SystemBtdfwbaWOMYIGFJCA5026-85-43 08:42:00 Test Item Value Reference Range Interpretation Comments UA Blood (test code = Negative (09/15/2011 N UA Blood) 03:42:00) [facility] SystemJpznovgGYWFBAWCXV6879-80-62 08:42:00 Test Item Value Reference Range Interpretation Comments UA Nitrite (test code Negative (09/15/2011 N = UA Nitrite) 03:42:00) [facility] SystemAecetqcHZLWZIYBVK6519-62-94 08:42:00 Test Item Value Reference Range Interpretation Comments UA Leuk Est (test Negative (09/15/2011 N code = UA Leuk Est) 03:42:00) [facility] SystemCyzfctrBGZMOHMYGC9887-46-06 08:42:00 Test Item Value Reference Range Interpretation Comments UA pH (test code = UA pH) 5.5 5.0-8.0 N [facility] SystemCzgepfcJVKJXFVOLL9669-44-72 08:42:00 Test Item Value Reference Range Interpretation Comments UA Protein (test code Negative mg/dL N = UA Protein) (09/15/2011 03:42:00) [facility] SystemKddntjpELNHDRXHWH5437-39-79 08:42:00 Test Item Value Reference Range Interpretation Comments UA Glucose (test code Negative mg/dL = UA Glucose) *NA*(09/15/2011 03:42:00) [facility] SystemGcybbknYQJAOBSODS3846-31-02 08:42:00 Test Item Value Reference Range Interpretation Comments UA Ketones (test code Negative mg/dL = UA Ketones) *NA*(09/15/2011 03:42:00) [facility] CampusIupavhyHTCPTWXSEJ6074-74-13 08:42:00 Test Item Value Reference Range Interpretation Comments UA Bili (test code = Negative *NA*(09/15/2011 UA Bili) 03:42:00) [facility] CampusRbpckdxHXFNRMVYJF6985-06-92 08:42:00 Test Item Value Reference Range Interpretation Comments UA Color (test code = Yellow *NA*(09/15/2011 UA Color) 03:42:00) [facility] CampusKpvjmmjDLNLNNJHJY8762-57-00 08:42:00 Test Item Value Reference Range Interpretation Comments UA Turbidity (test code Slight A = UA Turbidity) *ABN*(09/15/2011 03:42:00) [facility] CampusHgxwswjBYYVKQRMGZ4191-33-65 08:42:00 Test Item Value Reference Range Interpretation Comments UA Spec Grav (test code = UA Spec Grav) 1.012 N [facility] CampusExiesvvSWJEMMTVBZ1193-62-35 08:42:00 Test Item Value Reference Range Interpretation Comments UA Sq Epi (test code = UA Sq Epi) None Seen [facility] CampusKadjfdpWQZXRTDAVJ7921-17-05 08:42:00 Test Item Value Reference Range Interpretation Comments UA Urobilinogen (test code *NA*(09/15/2011 0.1-1.0 = UA Urobilinogen) 03:42:00) [facility]btb[facility]Ahvrqstfkvew7431-63-09 08:42:00 Test Item Value Reference Range Interpretation Comments Culture: Urine (test code = Culture: Urine) [facility] CampusUcvebncOVWZZPIXNO7500-34-68 08:42:00 Test Item Value Reference Range Interpretation Comments UA Mucus (test code = Few /LPF UA Mucus) *NA*(09/15/2011 03:42:00) [facility] CampusOnakrprMEYZBFIRKV4331-43-09 08:42:00 Test Item Value Reference Range Interpretation Comments UA RBC (test code = UA RBC) 1 <=2 N [facility] CampusXcnjmdxYLEWHKDODZ0418-35-64 08:42:00 Test Item Value Reference Range Interpretation Comments UA Blood (test code = Negative (09/15/2011 N UA Blood) 03:42:00) [facility] CampusUzznlgyPCTCNXTLHV5427-46-73 08:42:00 Test Item Value Reference Range Interpretation Comments UA Nitrite (test code Negative (09/15/2011 N = UA Nitrite) 03:42:00) [facility] SystemVhkmlpcBCOGWIYCGV3701-20-11 08:42:00 Test Item Value Reference Range Interpretation Comments UA Leuk Est (test Negative (09/15/2011 N code = UA Leuk Est) 03:42:00) [facility] SystemQlmdrzlTVZNUFECCQ4781-87-25 08:42:00 Test Item Value Reference Range Interpretation Comments UA pH (test code = UA pH) 5.5 5.0-8.0 N [facility] SystemOxptnzmBPARAZWLEW8010-50-01 08:42:00 Test Item Value Reference Range Interpretation Comments UA Protein (test code Negative mg/dL N = UA Protein) (09/15/2011 03:42:00) [facility] SystemPtlypxoAFARNMTNDA4612-50-09 08:42:00 Test Item Value Reference Range Interpretation Comments UA Glucose (test code Negative mg/dL = UA Glucose) *NA*(09/15/2011 03:42:00) [facility] SystemXqpiyeqLBIOFLFNFG4189-83-52 08:42:00 Test Item Value Reference Range Interpretation Comments UA Ketones (test code Negative mg/dL = UA Ketones) *NA*(09/15/2011 03:42:00) [facility] SystemVewqmnbIPLRQPTHJJ2709-08-62 08:42:00 Test Item Value Reference Range Interpretation Comments UA Bili (test code = Negative *NA*(09/15/2011 UA Bili) 03:42:00) [facility] SystemPqjqvgeVJFTRQIYXZ7352-16-67 08:42:00 Test Item Value Reference Range Interpretation Comments UA Color (test code = Yellow *NA*(09/15/2011 UA Color) 03:42:00) [facility] SystemUyospiaVKNMVPHUPY8870-63-52 08:42:00 Test Item Value Reference Range Interpretation Comments UA Turbidity (test code Slight A = UA Turbidity) *ABN*(09/15/2011 03:42:00) [facility] SystemRzdnlccMEOGEJRGSM6825-52-08 08:42:00 Test Item Value Reference Range Interpretation Comments UA Spec Grav (test code = UA Spec Grav) 1.012 N [facility] SystemKmhofgtJCUJGULVSN0337-27-55 08:42:00 Test Item Value Reference Range Interpretation Comments UA Sq Epi (test code = UA Sq Epi) None [facility]en [facility] SystemQxeuhpyHAAECGHIRZ7828-20-28 08:42:00 Test Item Value Reference Range Interpretation Comments UA Urobilinogen (test code *NA*(09/15/2011 0.1-1.0 = UA Urobilinogen) 03:42:00) [facility] CenterUiedjpdTeeqawobsdzs6971-10-11 08:42:00 Test Item Value Reference Range Interpretation Comments Culture: Urine (test code = Culture: Urine) [facility] CampusFzbbvkgCCHQXDUVHH8489-08-40 08:42:00 Test Item Value Reference Range Interpretation Comments UA Mucus (test code = Few /LPF UA Mucus) *NA*(09/15/2011 03:42:00) [facility] SystemBxkjtziBQYEKHEPTY6769-03-51 08:42:00 Test Item Value Reference Range Interpretation Comments UA RBC (test code = 1 See_Comment N [Automa lorie message] The UA RBC) system which ge nerated this result transmit lorie reference range : <=2. The reference range was not used to interpr et this result as asher l/abnormal. [facility] SystemBdsyiqmXKROOYEDKN4383-15-81 08:42:00 Test Item Value Reference Range Interpretation Comments UA Blood (test code = Negative (09/15/2011 N UA Blood) 03:42:00) [facility] SystemNzospajOWMJDRSTFD3317-66-41 08:42:00 Test Item Value Reference Range Interpretation Comments UA Nitrite (test code Negative (09/15/2011 N = UA Nitrite) 03:42:00) [facility] SystemRfmcljkKJUKGCARXT4443-92-92 08:42:00 Test Item Value Reference Range Interpretation Comments UA Leuk Est (test Negative (09/15/2011 N code = UA Leuk Est) 03:42:00) [facility] SystemKcispteKCNVXZDAQW1982-89-11 08:42:00 Test Item Value Reference Range Interpretation Comments UA pH (test code = UA pH) 5.5 5.0-8.0 N [facility] CampusIbmtuzqVOLMOBHGVE3063-34-34 08:42:00 Test Item Value Reference Range Interpretation Comments UA Protein (test code Negative mg/dL N = UA Protein) (09/15/2011 03:42:00) [facility] SystemXiqquylMWFZMVQHXS6870-44-57 08:42:00 Test Item Value Reference Range Interpretation Comments UA Mucus (test code = Few /LPF UA Mucus) *NA*(09/15/2011 03:42:00) [facility] SystemPfuqgczLQLYLNEQIK9122-24-99 08:42:00 Test Item Value Reference Range Interpretation Comments UA Glucose (test code Negative mg/dL = UA Glucose) *NA*(09/15/2011 03:42:00) [facility] SystemWksmmvwWXSHUZXQXG3831-22-80 08:42:00 Test Item Value Reference Range Interpretation Comments UA RBC (test code = UA RBC) 1 <=2 N [facility] SystemVrggflnZLUWHEGNKW3951-30-21 08:42:00 Test Item Value Reference Range Interpretation Comments UA Blood (test code = Negative (09/15/2011 N UA Blood) 03:42:00) [facility] SystemBvzelryIUSZSZFCHD0927-87-82 08:42:00 Test Item Value Reference Range Interpretation Comments UA Nitrite (test code Negative (09/15/2011 N = UA Nitrite) 03:42:00) [facility] SystemKbyyrvbZSOOFGVKAL5639-64-08 08:42:00 Test Item Value Reference Range Interpretation Comments UA Leuk Est (test Negative (09/15/2011 N code = UA Leuk Est) 03:42:00) [facility] SystemTchcvqcBSLRMLBTFU0316-54-38 08:42:00 Test Item Value Reference Range Interpretation Comments UA pH (test code = UA pH) 5.5 5.0-8.0 N [facility] SystemRwkdfztGFEHNJXTEK8423-04-98 08:42:00 Test Item Value Reference Range Interpretation Comments UA Protein (test code Negative mg/dL N = UA Protein) (09/15/2011 03:42:00) [facility] SystemMwutgsjYKAQOQYAOL5830-21-19 08:42:00 Test Item Value Reference Range Interpretation Comments UA Glucose (test code Negative mg/dL = UA Glucose) *NA*(09/15/2011 03:42:00) [facility] SystemYafkvsdIKBSIEWSLP4080-71-09 08:42:00 Test Item Value Reference Range Interpretation Comments UA Ketones (test code Negative mg/dL = UA Ketones) *NA*(09/15/2011 03:42:00) [facility] SystemWgdyftvYCJVRYJBGW3562-29-38 08:42:00 Test Item Value Reference Range Interpretation Comments UA Bili (test code = Negative *NA*(09/15/2011 UA Bili) 03:42:00) [facility] SystemPhvqhjfTIQCTPUNXZ1579-50-24 08:42:00 Test Item Value Reference Range Interpretation Comments UA Color (test code = Yellow *NA*(09/15/2011 UA Color) 03:42:00) [facility] CampusXwgyrbtCKWFNFLTZO8400-13-78 08:42:00 Test Item Value Reference Range Interpretation Comments UA Ketones (test code Negative mg/dL = UA Ketones) *NA*(09/15/2011 03:42:00) [facility] CampusHncesvsBPFWTLPVIP2661-24-02 08:42:00 Test Item Value Reference Range Interpretation Comments UA Turbidity (test code Slight A = UA Turbidity) *ABN*(09/15/2011 03:42:00) [facility] CampusSiacagvJWFDXWVLLQ6473-53-15 08:42:00 Test Item Value Reference Range Interpretation Comments UA Spec Grav (test code = UA Spec Grav) 1.012 N [facility] CampusRahkhkuXQOYAHWNEJ3357-18-15 08:42:00 Test Item Value Reference Range Interpretation Comments UA Sq Epi (test code = UA Sq Epi) None Seen [facility] CampusTdgffkfOGFPZGVSPW3760-97-67 08:42:00 Test Item Value Reference Range Interpretation Comments UA Urobilinogen (test code *NA*(09/15/2011 0.1-1.0 = UA Urobilinogen) 03:42:00) [facility]FfpbytbUjmpcjmuurih3944-18-04 08:42:00 Test Item Value Reference Range Interpretation Comments Culture: Urine (test code = Culture: Urine) [facility] CampusBqyftrmQVBWOIQXSF7262-32-14 08:42:00 Test Item Value Reference Range Interpretation Comments UA Bili (test code = Negative *NA*(09/15/2011 UA Bili) 03:42:00) [facility] CampusInmodcgEKTHYVTBLR7319-70-53 08:42:00 Test Item Value Reference Range Interpretation Comments UA Color (test code = Yellow *NA*(09/15/2011 UA Color) 03:42:00) [facility] CampusXuhxevaKEJPNRLYBK9500-47-69 08:42:00 Test Item Value Reference Range Interpretation Comments UA Turbidity (test code Slight A = UA Turbidity) *ABN*(09/15/2011 03:42:00) [facility] CampusSrxngijPBRGVRTXPG8329-24-88 08:42:00 Test Item Value Reference Range Interpretation Comments UA Spec Grav (test code = UA Spec Grav) 1.012 N [facility] SystemSdlfqalHGYNQTUTSV8668-21-06 08:42:00 Test Item Value Reference Range Interpretation Comments UA Sq Epi (test code = UA Sq Epi) None Seen [facility] CampusJzqhycqORUTMXBQSX4754-75-99 08:42:00 Test Item Value Reference Range Interpretation Comments UA Urobilinogen (test code *NA*(09/15/2011 0.1-1.0 = UA Urobilinogen) 03:42:00) [facility] CenterWlwgtxjPrfphvwjdqjg5067-80-50 08:42:00 Test Item Value Reference Range Interpretation Comments Culture: Urine (test code = Culture: Urine) [facility] CampusQipfmuyYRFSJIYHFZ9516-28-60 08:42:00 Test Item Value Reference Range Interpretation Comments UA Mucus (test code = Few /LPF UA Mucus) *NA*(09/15/2011 03:42:00) [facility] CampusVpasngiTJQNGAPHXA9144-45-52 08:42:00 Test Item Value Reference Range Interpretation Comments UA RBC (test code = 1 See_Comment N [Automa lorie message] The UA RBC) system which ge nerated this result transmit lorie reference range : <=2. The reference range was not used to interpr et this result as asher l/abnormal. [facility] CampusFopzjxcZJCLMUQAGS6620-83-27 08:42:00 Test Item Value Reference Range Interpretation Comments UA Blood (test code = Negative (09/15/2011 N UA Blood) 03:42:00) [facility] CampusVqizuycRJPQCBQAXL6591-84-94 08:42:00 Test Item Value Reference Range Interpretation Comments UA Nitrite (test code Negative (09/15/2011 N = UA Nitrite) 03:42:00) [facility] CampusHoaqitnEOWAUURVBG5774-26-45 08:42:00 Test Item Value Reference Range Interpretation Comments UA Leuk Est (test Negative (09/15/2011 N code = UA Leuk Est) 03:42:00) [facility] CampusLuqmqjxJTORGSVECV7736-09-99 08:42:00 Test Item Value Reference Range Interpretation Comments UA pH (test code = UA pH) 5.5 5.0-8.0 N [facility] CampusHtkhdkdEQZLJKGVMU0190-18-82 08:42:00 Test Item Value Reference Range Interpretation Comments UA Protein (test code Negative mg/dL N = UA Protein) (09/15/2011 03:42:00) [facility] CampusIprpcnyMEBYMEUZXA6775-20-42 08:42:00 Test Item Value Reference Range Interpretation Comments UA Glucose (test code Negative mg/dL = UA Glucose) *NA*(09/15/2011 03:42:00) [facility] CampusRfnuhqmWVRBVSPUJH8551-22-40 08:42:00 Test Item Value Reference Range Interpretation Comments UA Ketones (test code Negative mg/dL = UA Ketones) *NA*(09/15/2011 03:42:00) [facility] SystemBlylfnvSMXIQUUSGD9346-47-69 08:42:00 Test Item Value Reference Range Interpretation Comments UA Bili (test code = Negative *NA*(09/15/2011 UA Bili) 03:42:00) [facility] SystemOhtvwqdSYCUFWVYOQ5504-92-89 08:42:00 Test Item Value Reference Range Interpretation Comments UA Color (test code = Yellow *NA*(09/15/2011 UA Color) 03:42:00) [facility] SystemGhpamopJQLTUJQYDW3586-24-06 08:42:00 Test Item Value Reference Range Interpretation Comments UA Turbidity (test code Slight A = UA Turbidity) *ABN*(09/15/2011 03:42:00) [facility] SystemJdwyqunASUTVUYHQY0965-97-37 08:42:00 Test Item Value Reference Range Interpretation Comments UA Spec Grav (test code = UA Spec Grav) 1.012 N [facility] CampusWdkandwAEHEMSLBEW8238-46-58 08:42:00 Test Item Value Reference Range Interpretation Comments UA Sq Epi (test code = UA Sq Epi) None Seen [facility] SystemBdxmbfxLKJVYEGWIV5293-55-22 08:42:00 Test Item Value Reference Range Interpretation Comments UA Urobilinogen (test code *NA*(09/15/2011 0.1-1.0 = UA Urobilinogen) 03:42:00) [facility]OwicxjxQkllcixlsiio0928-83-19 08:42:00 Test Item Value Reference Range Interpretation Comments Culture: Urine (test code = Culture: Urine) [facility] SystemEtahrqvCGQLJLHXWF9532-67-80 08:42:00 Test Item Value Reference Range Interpretation Comments UA Mucus (test code = Few /LPF UA Mucus) *NA*(09/15/2011 03:42:00) [facility] CampusOjhoizkHSMPGQDAGU0337-98-73 08:42:00 Test Item Value Reference Range Interpretation Comments UA RBC (test code = 1 See_Comment N [Automa lorie message] The UA RBC) system which ge nerated this result transmit lorie reference range : <=2. The reference range was not used to interpr et this result as asher l/abnormal. [facility] SystemGsndlpnCTCOUQQJNR3544-66-86 08:42:00 Test Item Value Reference Range Interpretation Comments UA Blood (test code = Negative (09/15/2011 N UA Blood) 03:42:00) [facility] SystemIuezkrjGYFDOPEGCF7037-18-02 08:42:00 Test Item Value Reference Range Interpretation Comments UA Nitrite (test code Negative (09/15/2011 N = UA Nitrite) 03:42:00) [facility] SystemYlnwqgaRUWZMYUGTX2600-00-09 08:42:00 Test Item Value Reference Range Interpretation Comments UA Leuk Est (test Negative (09/15/2011 N code = UA Leuk Est) 03:42:00) [facility] SystemGiudrtqFQTQCPMQGR2291-65-02 08:42:00 Test Item Value Reference Range Interpretation Comments UA pH (test code = UA pH) 5.5 5.0-8.0 N [facility] SystemTydozajJHZAHVCAPL1659-52-27 08:42:00 Test Item Value Reference Range Interpretation Comments UA Protein (test code Negative mg/dL N = UA Protein) (09/15/2011 03:42:00) [facility] SystemLfkdgzcQBLICVKBDN5086-63-15 08:42:00 Test Item Value Reference Range Interpretation Comments UA Glucose (test code Negative mg/dL = UA Glucose) *NA*(09/15/2011 03:42:00) [facility] SystemShpzzyiKJUCLXQGGT3252-20-76 08:42:00 Test Item Value Reference Range Interpretation Comments UA Ketones (test code Negative mg/dL = UA Ketones) *NA*(09/15/2011 03:42:00) [facility] SystemEgfywouGXYZCMSFSX0343-55-80 08:42:00 Test Item Value Reference Range Interpretation Comments UA Bili (test code = Negative *NA*(09/15/2011 UA Bili) 03:42:00) [facility] SystemFdzjjrrIEDCBHGPEC1191-25-58 08:42:00 Test Item Value Reference Range Interpretation Comments UA Color (test code = Yellow *NA*(09/15/2011 UA Color) 03:42:00) [facility]YcgwebtJYRYZUSPCC2016-83-75 08:42:00 Test Item Value Reference Range Interpretation Comments UA Turbidity (test code Slight A = UA Turbidity) *ABN*(09/15/2011 03:42:00) [facility] CampusXklypodJPXPEXCKLA8997-28-95 08:42:00 Test Item Value Reference Range Interpretation Comments UA Spec Grav (test code = UA Spec Grav) 1.012 N [facility] HospitalSdbmhggOHZFSFBXIK4529-97-27 08:42:00 Test Item Value Reference Range Interpretation Comments UA Sq Epi (test code = UA Sq Epi) None Seen [facility] HospitalTzrohjfQWIGDPSPDU8633-37-54 08:42:00 Test Item Value Reference Range Interpretation Comments UA Urobilinogen (test code *NA*(09/15/2011 0.1-1.0 = UA Urobilinogen) 03:42:00) [facility] HospitalOrhsdlmVezxwlksuzjd2274-96-37 08:42:00 Test Item Value Reference Range Interpretation Comments Culture: Urine (test code = Culture: Urine) [facility] HospitalUhkfktrBYWUZOUJOP1556-04-76 08:42:00 Test Item Value Reference Range Interpretation Comments UA Mucus (test code = Few /LPF UA Mucus) *NA*(09/15/2011 03:42:00) [facility] CampusXdichaaMMCIKDFGVR3356-25-35 08:42:00 Test Item Value Reference Range Interpretation Comments UA RBC (test code = 1 See_Comment N [Automa lorie message] The UA RBC) system which ge nerated this result transmit lorie reference range : <=2. The reference range was not used to interpr et this result as asher l/abnormal. [facility] HospitalPtbtxakIAAIUMIGAG9589-47-03 08:42:00 Test Item Value Reference Range Interpretation Comments UA Blood (test code = Negative (09/15/2011 N UA Blood) 03:42:00) [facility] HospitalPdvwqfcLYLZYFJOTL7959-17-51 08:42:00 Test Item Value Reference Range Interpretation Comments UA Nitrite (test code Negative (09/15/2011 N = UA Nitrite) 03:42:00) [facility] HospitalNcgayshHXMVXMZKZU2850-23-54 08:42:00 Test Item Value Reference Range Interpretation Comments UA Leuk Est (test Negative (09/15/2011 N code = UA Leuk Est) 03:42:00) [facility] CampusDfehamsPUUWYOYOMN1268-46-40 08:42:00 Test Item Value Reference Range Interpretation Comments UA pH (test code = UA pH) 5.5 5.0-8.0 N [facility] SystemHxcveleBUEFJGDMWC5079-57-96 08:42:00 Test Item Value Reference Range Interpretation Comments UA Protein (test code Negative mg/dL N = UA Protein) (09/15/2011 03:42:00) [facility] SystemRivmmroXVMFSXWUYX2971-96-20 08:42:00 Test Item Value Reference Range Interpretation Comments UA Glucose (test code Negative mg/dL = UA Glucose) *NA*(09/15/2011 03:42:00) [facility] SystemAkdqbbrKHVIVQXLJG7940-93-96 08:42:00 Test Item Value Reference Range Interpretation Comments UA Ketones (test code Negative mg/dL = UA Ketones) *NA*(09/15/2011 03:42:00) [facility] SystemXzpddlxAAVWUHKNAC2135-01-25 08:42:00 Test Item Value Reference Range Interpretation Comments UA Bili (test code = Negative *NA*(09/15/2011 UA Bili) 03:42:00) [facility] SystemCsjnpleIFWUISZTHR6025-68-44 08:42:00 Test Item Value Reference Range Interpretation Comments UA Color (test code = Yellow *NA*(09/15/2011 UA Color) 03:42:00) [facility] SystemHydathoKAUUJEFGXT5195-72-10 08:42:00 Test Item Value Reference Range Interpretation Comments UA Turbidity (test code Slight A = UA Turbidity) *ABN*(09/15/2011 03:42:00) [facility] SystemFsrlfnaPDDODLYKUH9599-84-00 08:42:00 Test Item Value Reference Range Interpretation Comments UA Spec Grav (test code = UA Spec Grav) 1.012 N [facility] CampusVtweaghIBOOPOZSWD5479-46-66 08:42:00 Test Item Value Reference Range Interpretation Comments UA Sq Epi (test code = UA Sq Epi) None Seen [facility] SystemYemwsswFEKAWSJPNZ3162-94-55 08:42:00 Test Item Value Reference Range Interpretation Comments UA Urobilinogen (test code *NA*(09/15/2011 0.1-1.0 = UA Urobilinogen) 03:42:00) [facility] HospitalBsuwblrQneowvqyvsqf6716-03-60 08:42:00 Test Item Value Reference Range Interpretation Comments Culture: Urine (test code = Culture: Urine) [facility] SystemOiepngkPVDWALSFYC8768-79-23 08:42:00 Test Item Value Reference Range Interpretation Comments UA Mucus (test code = Few /LPF UA Mucus) *NA*(09/15/2011 03:42:00) [facility] SystemSqvrvcqNOHJJQVIDD7627-92-18 08:42:00 Test Item Value Reference Range Interpretation Comments UA RBC (test code = 1 See_Comment N [Automa lorie message] The UA RBC) system which ge nerated this result transmit lorie reference range : <=2. The reference range was not used to interpr et this result as asher l/abnormal. [facility] SystemPfgohkcPIYBHCMKMG8863-69-88 08:42:00 Test Item Value Reference Range Interpretation Comments UA Blood (test code = Negative (09/15/2011 N UA Blood) 03:42:00) [facility] SystemUthfxzaLYRPDHDCDW7563-80-80 08:42:00 Test Item Value Reference Range Interpretation Comments UA Nitrite (test code Negative (09/15/2011 N = UA Nitrite) 03:42:00) [facility] SystemNfgugunPKUNFPOZIL9198-33-86 08:42:00 Test Item Value Reference Range Interpretation Comments UA Leuk Est (test Negative (09/15/2011 N code = UA Leuk Est) 03:42:00) [facility] SystemSuchlakFWVXGYHALV1698-54-04 08:42:00 Test Item Value Reference Range Interpretation Comments UA pH (test code = UA pH) 5.5 5.0-8.0 N [facility] SystemJykfynqRVVSKDIHAY6493-27-07 08:42:00 Test Item Value Reference Range Interpretation Comments UA Protein (test code Negative mg/dL N = UA Protein) (09/15/2011 03:42:00) [facility] SystemHhnaneeORHKISNDJJ7936-17-63 08:42:00 Test Item Value Reference Range Interpretation Comments UA Glucose (test code Negative mg/dL = UA Glucose) *NA*(09/15/2011 03:42:00) [facility] SystemFetfjxeDGSPKZZIEF2400-72-06 08:42:00 Test Item Value Reference Range Interpretation Comments UA Ketones (test code Negative mg/dL = UA Ketones) *NA*(09/15/2011 03:42:00) [facility] SystemYtnigtfQKLWXPIOQU3224-83-36 08:42:00 Test Item Value Reference Range Interpretation Comments UA Bili (test code = Negative *NA*(09/15/2011 UA Bili) 03:42:00) [facility] HospitalEwqmnlhXJDUZCHOND9711-62-53 08:42:00 Test Item Value Reference Range Interpretation Comments UA Color (test code = Yellow *NA*(09/15/2011 UA Color) 03:42:00) [facility] HospitalApacsylMXJDPUEQUA9616-89-61 08:42:00 Test Item Value Reference Range Interpretation Comments UA Turbidity (test code Slight A = UA Turbidity) *ABN*(09/15/2011 03:42:00) [facility] HospitalNmvggplHYEPUGWQXW5953-84-52 08:42:00 Test Item Value Reference Range Interpretation Comments UA Spec Grav (test code = UA Spec Grav) 1.012 N [facility] HospitalCzjhpqcLXYXPYORSF7165-69-53 08:42:00 Test Item Value Reference Range Interpretation Comments UA Sq Epi (test code = UA Sq Epi) None Seen [facility] HospitalXdeizbuMXGBPJDWCX8088-66-95 08:42:00 Test Item Value Reference Range Interpretation Comments UA Urobilinogen (test code *NA*(09/15/2011 0.1-1.0 = UA Urobilinogen) 03:42:00) [facility] HospitalVamceajLudpheqcagqy2728-86-10 08:42:00 Test Item Value Reference Range Interpretation Comments Culture: Urine (test code = Culture: Urine) [facility] CampusFsxsybwTDHGFFACDO9303-14-20 08:42:00 Test Item Value Reference Range Interpretation Comments UA Mucus (test code = Few /LPF UA Mucus) *NA*(09/15/2011 03:42:00) [facility] HospitalRtziyrnKYMPRQQSOY8230-51-47 08:42:00 Test Item Value Reference Range Interpretation Comments UA RBC (test code = 1 See_Comment N [Automa lorie message] The UA RBC) system which ge nerated this result transmit lorie reference range : <=2. The reference range was not used to interpr et this result as asher l/abnormal. [facility] CampusSzmnhjgQPPEIOEFMA0438-04-14 08:42:00 Test Item Value Reference Range Interpretation Comments UA Blood (test code = Negative (09/15/2011 N UA Blood) 03:42:00) [facility] SystemRhehmlaTVEREJWWTV3472-95-86 08:42:00 Test Item Value Reference Range Interpretation Comments UA Nitrite (test code Negative (09/15/2011 N = UA Nitrite) 03:42:00) [facility] SystemPefooqjOVKLQLCQVG6167-37-29 08:42:00 Test Item Value Reference Range Interpretation Comments UA Leuk Est (test Negative (09/15/2011 N code = UA Leuk Est) 03:42:00) [facility] SystemTodbbmlWJFOEAFCFI5509-76-36 08:42:00 Test Item Value Reference Range Interpretation Comments UA pH (test code = UA pH) 5.5 5.0-8.0 N [facility] SystemKlqtrsyCZXXFOYNXO2579-20-29 08:42:00 Test Item Value Reference Range Interpretation Comments UA Protein (test code Negative mg/dL N = UA Protein) (09/15/2011 03:42:00) [facility] SystemPuegzooDRCSLLGHDK4502-48-06 08:42:00 Test Item Value Reference Range Interpretation Comments UA Glucose (test code Negative mg/dL = UA Glucose) *NA*(09/15/2011 03:42:00) [facility] SystemAyijsbtOSZFSAJLYB7979-53-12 08:42:00 Test Item Value Reference Range Interpretation Comments UA Ketones (test code Negative mg/dL = UA Ketones) *NA*(09/15/2011 03:42:00) [facility] SystemNelfeqtRMDCSUJMCE6765-33-93 08:42:00 Test Item Value Reference Range Interpretation Comments UA Bili (test code = Negative *NA*(09/15/2011 UA Bili) 03:42:00) [facility] SystemRkrjgnmGMBHCGBUAR0558-33-58 08:42:00 Test Item Value Reference Range Interpretation Comments UA Color (test code = Yellow *NA*(09/15/2011 UA Color) 03:42:00) [facility] SystemFswmthfQRFXRMHMAY4945-90-86 08:42:00 Test Item Value Reference Range Interpretation Comments UA Turbidity (test code Slight A = UA Turbidity) *ABN*(09/15/2011 03:42:00) [facility] SystemOkasfqqSUWPQWLMDP3427-44-29 08:42:00 Test Item Value Reference Range Interpretation Comments UA Spec Grav (test code = UA Spec Grav) 1.012 N [facility] SystemHyjxicmRDRSOCDJGN5627-92-93 08:42:00 Test Item Value Reference Range Interpretation Comments UA Sq Epi (test code = UA Sq Epi) None Seen [facility] SystemEgqnligLMSTQFDHEJ3513-74-11 08:42:00 Test Item Value Reference Range Interpretation Comments UA Urobilinogen (test code *NA*(09/15/2011 0.1-1.0 = UA Urobilinogen) 03:42:00) [facility] CenterCjoaqewInvnxgfhjael8276-63-18 08:42:00 Test Item Value Reference Range Interpretation Comments Culture: Urine (test code = Culture: Urine) [facility] CampusTisxcqoADZEUNKVGT0064-74-12 08:42:00 Test Item Value Reference Range Interpretation Comments UA Mucus (test code = Few /LPF UA Mucus) *NA*(09/15/2011 03:42:00) [facility] SystemRbbbkfiGNYJBWKNAN8484-68-56 08:42:00 Test Item Value Reference Range Interpretation Comments UA RBC (test code = UA RBC) 1 <=2 N [facility] SystemQfljmnkGLZGKOZBDC0070-44-85 08:42:00 Test Item Value Reference Range Interpretation Comments UA Blood (test code = Negative (09/15/2011 N UA Blood) 03:42:00) [facility] CampusHgxpcycYHFENQVIAK5882-73-81 08:42:00 Test Item Value Reference Range Interpretation Comments UA Nitrite (test code Negative (09/15/2011 N = UA Nitrite) 03:42:00) [facility] SystemDymfuakCIXTAEIOPC4449-98-43 08:42:00 Test Item Value Reference Range Interpretation Comments UA Leuk Est (test Negative (09/15/2011 N code = UA Leuk Est) 03:42:00) [facility] CampusTxiucbdEAZZNSJJYK0714-28-04 08:42:00 Test Item Value Reference Range Interpretation Comments UA pH (test code = UA pH) 5.5 5.0-8.0 N [facility] CampusRlwahfiZDZVFKOLGL2006-05-06 08:42:00 Test Item Value Reference Range Interpretation Comments UA Protein (test code Negative mg/dL N = UA Protein) (09/15/2011 03:42:00) [facility] SystemMwdrdmkUSVNUQOZXC1456-94-91 08:42:00 Test Item Value Reference Range Interpretation Comments UA Glucose (test code Negative mg/dL = UA Glucose) *NA*(09/15/2011 03:42:00) [facility] SystemEsjecghKNZJBPMNSD5172-27-16 08:42:00 Test Item Value Reference Range Interpretation Comments UA Ketones (test code Negative mg/dL = UA Ketones) *NA*(09/15/2011 03:42:00) [facility] SystemToddjssOWHLSWIJJZ4375-57-13 08:42:00 Test Item Value Reference Range Interpretation Comments UA Bili (test code = Negative *NA*(09/15/2011 UA Bili) 03:42:00) [facility] CampusHqogfxvMYBWBGLSVQ9832-82-66 08:42:00 Test Item Value Reference Range Interpretation Comments UA Color (test code = Yellow *NA*(09/15/2011 UA Color) 03:42:00) [facility] SystemDsnupurIBNTVADIIU7643-40-42 08:42:00 Test Item Value Reference Range Interpretation Comments UA Turbidity (test code Slight A = UA Turbidity) *ABN*(09/15/2011 03:42:00) [facility] SystemOmlzynpZPTQFSHROU3680-22-15 08:42:00 Test Item Value Reference Range Interpretation Comments UA Spec Grav (test code = UA Spec Grav) 1.012 N [facility] CampusJhpijfeEUYZRTTMLF2966-58-23 08:42:00 Test Item Value Reference Range Interpretation Comments UA Sq Epi (test code = UA Sq Epi) None Seen [facility] SystemWenpjhdRHJWFRAXZV5893-79-37 08:42:00 Test Item Value Reference Range Interpretation Comments UA Urobilinogen (test code *NA*(09/15/2011 0.1-1.0 = UA Urobilinogen) 03:42:00) [facility]FgopfroXykkrtefoapq0022-80-03 08:42:00 Test Item Value Reference Range Interpretation Comments Culture: Urine (test code = Culture: Urine) [facility]KlwfpzyDAVUDRTNU3790-73-40 08:40:00 Test Item Value Reference Range Interpretation Comments ALT (test code = ALT) 24 See_Comment N [Auto mated message] The system which ge nerated this result transmit lorie reference range : <=65. The reference range was not used to interpr et this result as asher l/abnormal. [facility] HospitalLwpwjdgWUVBFZOGX2119-94-71 08:40:00 Test Item Value Reference Range Interpretation Comments Alk Phos (test code = Alk Phos) 81 39-136 N [facility] HospitalWrprxfsLDKHWGKMR7950-36-08 08:40:00 Test Item Value Reference Range Interpretation Comments Albumin Lvl (test code = Albumin Lvl) 3.3 3.5-5.0 L [facility] HospitalWzginhpPPOIXGCDD6858-00-06 08:40:00 Test Item Value Reference Range Interpretation Comments A/G Ratio (test code = A/G Ratio) 1.1 0.7-1.6 N [facility] HospitalPnxsfttEEMMRBYZC4756-39-57 08:40:00 Test Item Value Reference Range Interpretation Comments B/C Ratio (test code = B/C Ratio) 14 6-25 N [facility] HospitalHtpaqraMBGNXXXMO5524-41-06 08:40:00 Test Item Value Reference Range Interpretation Comments Globulin (test code = Globulin) 3.1 2.0-4.0 N [facility] HospitalLbulqemUSAKAVQGU2956-41-27 08:40:00 Test Item Value Reference Range Interpretation Comments FTI (test code = FTI) 2.8 [facility] CenterMjgniuxABXXWRTCLZ4423-32-93 08:40:00 Test Item Value Reference Range Interpretation Comments PTT (test code = PTT) 32.4 s 22.9-35.8 N [facility] CenterUuvmarlLIWIXHMNRP4338-43-35 08:40:00 Test Item Value Reference Range Interpretation Comments PT (test code = PT) 13.0 s 12.0-14.7 N [facility] CenterCqdpckzRLLKTDVZXL7977-16-61 08:40:00 Test Item Value Reference Range Interpretation Comments INR (test code = INR) 0.98 0.85-1.17 N [facility] HospitalBcpkyioUFUODDMQD2080-02-98 08:40:00 Test Item Value Reference Range Interpretation Comments TSH (test code = TSH) 3.390 0.360-3.740 N [facility] HospitalKgixasmEFISNZDZM4747-91-22 08:40:00 Test Item Value Reference Range Interpretation Comments T4 (test code = T4) 8.5 4.7-13.3 N [facility] HospitalQkkciepQMYWCRPNQ6324-93-41 08:40:00 Test Item Value Reference Range Interpretation Comments T3 Uptake (test code = T3 Uptake) 33 31-39 N [facility] HospitalKbyjfskDWRJUATJF1776-85-46 08:40:00 Test Item Value Reference Range Interpretation Comments TSH (test code = TSH) 3.390 0.360-3.740 N [facility] HospitalYnislyzORXQEZTXB3554-26-53 08:40:00 Test Item Value Reference Range Interpretation Comments Total Protein (test code = Total 6.4 6.4-8.4 N Protein) [facility] HospitalJnptkelWDDETJOIX9662-47-57 08:40:00 Test Item Value Reference Range Interpretation Comments AST (test code = AST) 14 <=37 N [place] 403492-06-02 08:40:00 Test Item Value Reference Range Interpretation Comments Bili Total (test code = Bili Total) 0.4 0.2-1.3 N [facility] HospitalQudxjqtCJUXQCSSN9495-38-74 08:40:00 Test Item Value Reference Range Interpretation Comments ALT (test code = ALT) 24 <=65 N [place] [address]-06-02 08:40:00 Test Item Value Reference Range Interpretation Comments Alk Phos (test code = Alk Phos) 81 39-136 N [facility] HospitalWhsjlajWLOTGWPPK7731-06-52 08:40:00 Test Item Value Reference Range Interpretation Comments Albumin Lvl (test code = Albumin Lvl) 3.3 3.5-5.0 L [facility] HospitalTzfyywkMWNFRMQWM8052-49-33 08:40:00 Test Item Value Reference Range Interpretation Comments A/G Ratio (test code = A/G Ratio) 1.1 0.7-1.6 N [facility] HospitalOzliqeoRLKRLGCWK9478-97-73 08:40:00 Test Item Value Reference Range Interpretation Comments B/C Ratio (test code = B/C Ratio) 14 6-25 N [facility] HospitalNwcizvaWMNUKBMGX7869-22-56 08:40:00 Test Item Value Reference Range Interpretation Comments Globulin (test code = Globulin) 3.1 2.0-4.0 N [facility] HospitalVlqxovpELRZYQIPP4895-51-20 08:40:00 Test Item Value Reference Range Interpretation Comments FTI (test code = FTI) 2.8 [facility] CenterJfcflxuSKOEIUPUPI8592-39-55 08:40:00 Test Item Value Reference Range Interpretation Comments PTT (test code = PTT) 32.4 s 22.9-35.8 N [facility] CenterOhwefdpQJCCYLQPKW6812-19-75 08:40:00 Test Item Value Reference Range Interpretation Comments PT (test code = PT) 13.0 s 12.0-14.7 N [facility] CenterOjjbwktFULGKWUYQM9165-63-13 08:40:00 Test Item Value Reference Range Interpretation Comments INR (test code = INR) 0.98 0.85-1.17 N [facility] HospitalAptbdrhKNIYDOVSX7346-90-38 08:40:00 Test Item Value Reference Range Interpretation Comments TSH (test code = TSH) 3.390 0.360-3.740 N [facility] HospitalUzzyhtsKRSWEMTVZ4427-81-82 08:40:00 Test Item Value Reference Range Interpretation Comments T4 (test code = T4) 8.5 4.7-13.3 N [facility] HospitalNdejtxkYDJSQKZSR9849-59-44 08:40:00 Test Item Value Reference Range Interpretation Comments T3 Uptake (test code = T3 Uptake) 33 31-39 N [facility] HospitalAvxnnqtAGJGXXRKB3084-08-14 08:40:00 Test Item Value Reference Range Interpretation Comments TSH (test code = TSH) 3.390 0.360-3.740 N [facility] HospitalBxxmglsMVOMJHGWE8764-27-06 08:40:00 Test Item Value Reference Range Interpretation Comments Total Protein (test code = Total 6.4 6.4-8.4 N Protein) [facility] HospitalFabhwgxECPYPZIIG3735-49-07 08:40:00 Test Item Value Reference Range Interpretation Comments AST (test code = AST) 14 <=37 N [facility] HospitalMrhnpmgOASLJZPSX7251-65-98 08:40:00 Test Item Value Reference Range Interpretation Comments Bili Total (test code = Bili Total) 0.4 0.2-1.3 N [facility] HospitalYodbvbyYFBAFKKUO7344-76-38 08:40:00 Test Item Value Reference Range Interpretation Comments ALT (test code = ALT) 24 <=65 N [facility] HospitalPzoyqtlBNQIDZDLN0372-91-94 08:40:00 Test Item Value Reference Range Interpretation Comments Alk Phos (test code = Alk Phos) 81 39-136 N [facility] HospitalZxlocqwHNUREQZKY8536-36-26 08:40:00 Test Item Value Reference Range Interpretation Comments Albumin Lvl (test code = Albumin Lvl) 3.3 3.5-5.0 L [facility] HospitalLmtyvotOFEFMHLIX3955-22-00 08:40:00 Test Item Value Reference Range Interpretation Comments A/G Ratio (test code = A/G Ratio) 1.1 0.7-1.6 N [facility] HospitalNnsjofjXPHOGZGEI9578-30-29 08:40:00 Test Item Value Reference Range Interpretation Comments B/C Ratio (test code = B/C Ratio) 14 6-25 N [facility] HospitalAsnvsxhMFODFFTCJ6021-51-19 08:40:00 Test Item Value Reference Range Interpretation Comments Globulin (test code = Globulin) 3.1 2.0-4.0 N [facility] HospitalUisknkqGCJQTRNKH2902-86-94 08:40:00 Test Item Value Reference Range Interpretation Comments FTI (test code = FTI) 2.8 [facility] CenterBjcngrgKWSSSOCXKA8948-79-59 08:40:00 Test Item Value Reference Range Interpretation Comments PTT (test code = PTT) 32.4 s 22.9-35.8 N [facility] CenterBvryojePQELRPCJHI2302-62-04 08:40:00 Test Item Value Reference Range Interpretation Comments PT (test code = PT) 13.0 s 12.0-14.7 N [facility] CenterUsejtllCXTABDEZGO7247-81-99 08:40:00 Test Item Value Reference Range Interpretation Comments INR (test code = INR) 0.98 0.85-1.17 N [facility] HospitalUzyjftvUGEYVYVOP1445-39-75 08:40:00 Test Item Value Reference Range Interpretation Comments TSH (test code = TSH) 3.390 0.360-3.740 N [facility] HospitalQyzhjgmVKPNHKMRX6810-55-25 08:40:00 Test Item Value Reference Range Interpretation Comments T4 (test code = T4) 8.5 4.7-13.3 N [facility] HospitalGyjzovlOYEDFYNBE9095-00-30 08:40:00 Test Item Value Reference Range Interpretation Comments T3 Uptake (test code = T3 Uptake) 33 31-39 N [facility] HospitalQxwfpqaSNNZYVISA1592-34-22 08:40:00 Test Item Value Reference Range Interpretation Comments TSH (test code = TSH) 3.390 0.360-3.740 N [facility] HospitalMouzwewJHRQXKEKA3595-56-76 08:40:00 Test Item Value Reference Range Interpretation Comments Total Protein (test code = Total 6.4 6.4-8.4 N Protein) [facility] HospitalXtkxyalJDKNXXZWL4995-19-32 08:40:00 Test Item Value Reference Range Interpretation Comments AST (test code = AST) 14 <=37 N [facility] HospitalEgmemzqPGCEFZZAG5334-14-71 08:40:00 Test Item Value Reference Range Interpretation Comments Bili Total (test code = Bili Total) 0.4 0.2-1.3 N [place] 403492-06-02 08:40:00 Test Item Value Reference Range Interpretation Comments ALT (test code = ALT) 24 <=65 N [facility] HospitalPkmxluxHJSCJHHTN2001-49-19 08:40:00 Test Item Value Reference Range Interpretation Comments Alk Phos (test code = Alk Phos) 81 39-136 N [facility] HospitalQszlswsDGICRPUPY7505-61-97 08:40:00 Test Item Value Reference Range Interpretation Comments Albumin Lvl (test code = Albumin Lvl) 3.3 3.5-5.0 L [facility] HospitalXglolgsLCSEYOYJE1582-09-49 08:40:00 Test Item Value Reference Range Interpretation Comments A/G Ratio (test code = A/G Ratio) 1.1 0.7-1.6 N [facility] HospitalVcyxrkvGTAGLINXU1277-05-08 08:40:00 Test Item Value Reference Range Interpretation Comments B/C Ratio (test code = B/C Ratio) 14 6-25 N [facility] HospitalFifhnnxRBQHYAKHR7809-31-99 08:40:00 Test Item Value Reference Range Interpretation Comments Globulin (test code = Globulin) 3.1 2.0-4.0 N [facility] HospitalUgjvqldJOGUYHCZZ0784-05-42 08:40:00 Test Item Value Reference Range Interpretation Comments FTI (test code = FTI) 2.8 [facility] CenterTejqtrvYQBFEAHVRM1973-03-36 08:40:00 Test Item Value Reference Range Interpretation Comments PTT (test code = PTT) 32.4 s 22.9-35.8 N [facility] CenterVqnosejBALMZFVMKQ3997-81-00 08:40:00 Test Item Value Reference Range Interpretation Comments PT (test code = PT) 13.0 s 12.0-14.7 N [facility] CenterCpcdwtbHDBFGKTTWT7766-93-85 08:40:00 Test Item Value Reference Range Interpretation Comments INR (test code = INR) 0.98 0.85-1.17 N [facility] HospitalHjrxofsRCBQJCYIG5405-57-80 08:40:00 Test Item Value Reference Range Interpretation Comments TSH (test code = TSH) 3.390 0.360-3.740 N [facility] HospitalBmjqxknEAPTFWBOL0272-15-14 08:40:00 Test Item Value Reference Range Interpretation Comments T4 (test code = T4) 8.5 4.7-13.3 N [facility] HospitalIyqzxaaTOUMOJOGQ3423-08-77 08:40:00 Test Item Value Reference Range Interpretation Comments T3 Uptake (test code = T3 Uptake) 33 31-39 N [facility] HospitalSjuomieWSRJYZQMP7027-70-13 08:40:00 Test Item Value Reference Range Interpretation Comments TSH (test code = TSH) 3.390 0.360-3.740 N [facility] HospitalBuiqadbHYMDVVYKP5071-69-37 08:40:00 Test Item Value Reference Range Interpretation Comments Total Protein (test code = Total 6.4 6.4-8.4 N Protein) [facility] HospitalGrdprufQYOWPEWHY7914-07-41 08:40:00 Test Item Value Reference Range Interpretation Comments AST (test code = AST) 14 See_Comment N [Auto mated message] The system which ge nerated this result transmit lorie reference range : <=37. The reference range was not used to interpr et this result as asher l/abnormal. [facility] HospitalVicqjnxAHHIAGZHC3493-29-50 08:40:00 Test Item Value Reference Range Interpretation Comments Bili Total (test code = Bili Total) 0.4 0.2-1.3 N [facility] HospitalMehyrggDHPGOVJWD7995-17-33 08:40:00 Test Item Value Reference Range Interpretation Comments ALT (test code = ALT) 24 See_Comment N [Auto mated message] The system which ge nerated this result transmit lorie reference range : <=65. The reference range was not used to interpr et this result as asher l/abnormal. [facility] HospitalDjublkmCAHYWYXDS4252-48-52 08:40:00 Test Item Value Reference Range Interpretation Comments Alk Phos (test code = Alk Phos) 81 39-136 N [facility] HospitalGekzsdsYEKJGLUMB6279-74-65 08:40:00 Test Item Value Reference Range Interpretation Comments Albumin Lvl (test code = Albumin Lvl) 3.3 3.5-5.0 L [facility] HospitalXidufsqSNTCNOUNO6483-08-20 08:40:00 Test Item Value Reference Range Interpretation Comments A/G Ratio (test code = A/G Ratio) 1.1 0.7-1.6 N [facility] HospitalXumkbdmTROWMKQMG3270-31-90 08:40:00 Test Item Value Reference Range Interpretation Comments B/C Ratio (test code = B/C Ratio) 14 6-25 N [facility] HospitalQjvqnecTXBPBGSOK4137-52-01 08:40:00 Test Item Value Reference Range Interpretation Comments Globulin (test code = Globulin) 3.1 2.0-4.0 N [facility] HospitalHncflrhXCXYDEVBA0277-54-25 08:40:00 Test Item Value Reference Range Interpretation Comments FTI (test code = FTI) 2.8 [facility] CenterGtmoupoGJKIJGSSCP3511-53-33 08:40:00 Test Item Value Reference Range Interpretation Comments PTT (test code = PTT) 32.4 s 22.9-35.8 N [facility] CenterPtkiozoGBHJFSJHIS6777-01-48 08:40:00 Test Item Value Reference Range Interpretation Comments PT (test code = PT) 13.0 s 12.0-14.7 N [facility] CenterTmctolaKKMFEEQBAX3766-31-12 08:40:00 Test Item Value Reference Range Interpretation Comments INR (test code = INR) 0.98 0.85-1.17 N [facility] HospitalSgaqcjdCSOYMJHBP6264-24-56 08:40:00 Test Item Value Reference Range Interpretation Comments TSH (test code = TSH) 3.390 0.360-3.740 N [facility] HospitalKaozjccRSVWBIIBL2566-36-66 08:40:00 Test Item Value Reference Range Interpretation Comments T4 (test code = T4) 8.5 4.7-13.3 N [facility] HospitalHkaiuuyNHNSBUQSO2955-97-54 08:40:00 Test Item Value Reference Range Interpretation Comments T3 Uptake (test code = T3 Uptake) 33 31-39 N [facility] HospitalGdeyuagDYHUVHGDQ9971-89-87 08:40:00 Test Item Value Reference Range Interpretation Comments TSH (test code = TSH) 3.390 0.360-3.740 N [facility] HospitalSjcbqsrYPPYQWPZN7622-28-11 08:40:00 Test Item Value Reference Range Interpretation Comments Total Protein (test code = Total 6.4 6.4-8.4 N Protein) [facility] HospitalPpgmfejOUKGNLNYT4072-37-00 08:40:00 Test Item Value Reference Range Interpretation Comments AST (test code = AST) 14 See_Comment N [Auto mated message] The system which ge nerated this result transmit lorie reference range : <=37. The reference range was not used to interpr et this result as ahser l/abnormal. [facility] HospitalHtgchvnWETVOMGSW2999-87-19 08:40:00 Test Item Value Reference Range Interpretation Comments Bili Total (test code = Bili Total) 0.4 0.2-1.3 N [facility] HospitalEulruypCUCWYTXKR3041-11-52 08:40:00 Test Item Value Reference Range Interpretation Comments ALT (test code = ALT) 24 See_Comment N [Auto mated message] The system which ge nerated this result transmit lorie reference range : <=65. The reference range was not used to interpr et this result as asher l/abnormal. [facility] HospitalMkcmnujNTWSMPIFA6580-84-55 08:40:00 Test Item Value Reference Range Interpretation Comments Alk Phos (test code = Alk Phos) 81 39-136 N [facility] HospitalRptdcsvZGDJRXIFJ4245-25-47 08:40:00 Test Item Value Reference Range Interpretation Comments Albumin Lvl (test code = Albumin Lvl) 3.3 3.5-5.0 L [facility] HospitalNymlyjyWUZAOXUYA3606-33-14 08:40:00 Test Item Value Reference Range Interpretation Comments A/G Ratio (test code = A/G Ratio) 1.1 0.7-1.6 N [facility] HospitalGgcnngeKDVTITSQO7227-87-08 08:40:00 Test Item Value Reference Range Interpretation Comments B/C Ratio (test code = B/C Ratio) 14 6-25 N [facility] HospitalRbmckeyTIRLQXHAE7618-16-28 08:40:00 Test Item Value Reference Range Interpretation Comments Globulin (test code = Globulin) 3.1 2.0-4.0 N [facility] HospitalJozmunuIJKMRWWNN3033-75-53 08:40:00 Test Item Value Reference Range Interpretation Comments FTI (test code = FTI) 2.8 [facility] CenterIthofdaQMZWQPFPGC5299-80-67 08:40:00 Test Item Value Reference Range Interpretation Comments PTT (test code = PTT) 32.4 s 22.9-35.8 N [facility] CenterTccgvqfJRRIAEMQHP6449-90-73 08:40:00 Test Item Value Reference Range Interpretation Comments PT (test code = PT) 13.0 s 12.0-14.7 N [facility] CenterDozhmgmPAIXDTEYWM7391-65-59 08:40:00 Test Item Value Reference Range Interpretation Comments INR (test code = INR) 0.98 0.85-1.17 N [facility] HospitalGwbrajvHEDLWYUKV2337-91-20 08:40:00 Test Item Value Reference Range Interpretation Comments TSH (test code = TSH) 3.390 0.360-3.740 N [facility] HospitalOboctmyCMZYDCIJU7483-79-29 08:40:00 Test Item Value Reference Range Interpretation Comments T4 (test code = T4) 8.5 4.7-13.3 N [facility] HospitalEkqqspmYPNEDDZWZ6656-11-07 08:40:00 Test Item Value Reference Range Interpretation Comments T3 Uptake (test code = T3 Uptake) 33 31-39 N [facility] HospitalSrqgatuZHPHZYFZN8765-76-66 08:40:00 Test Item Value Reference Range Interpretation Comments TSH (test code = TSH) 3.390 0.360-3.740 N [facility] HospitalSxoodpzSDBMYHWOX7717-19-31 08:40:00 Test Item Value Reference Range Interpretation Comments Total Protein (test code = Total 6.4 6.4-8.4 N Protein) [facility] HospitalXoxkbzcHOKOTMTGM2429-98-52 08:40:00 Test Item Value Reference Range Interpretation Comments AST (test code = AST) 14 See_Comment N [Auto mated message] The system which ge nerated this result transmit lorie reference range : <=37. The reference range was not used to interpr et this result as asher l/abnormal. [facility] HospitalRmvwdvmZMLXDFHER5808-42-43 08:40:00 Test Item Value Reference Range Interpretation Comments Bili Total (test code = Bili Total) 0.4 0.2-1.3 N [facility] HospitalSccynqsPXNFTEBVY9762-37-33 08:40:00 Test Item Value Reference Range Interpretation Comments ALT (test code = ALT) 24 See_Comment N [Auto mated message] The system which ge nerated this result transmit lorie reference range : <=65. The reference range was not used to interpr et this result as asher l/abnormal. [facility] HospitalUtbawljMFMKVEFGY7365-86-72 08:40:00 Test Item Value Reference Range Interpretation Comments Alk Phos (test code = Alk Phos) 81 39-136 N [facility] HospitalFmeavxhWFLBRUDFY6138-82-23 08:40:00 Test Item Value Reference Range Interpretation Comments Albumin Lvl (test code = Albumin Lvl) 3.3 3.5-5.0 L [facility] HospitalBkmvfrqOEWMVFVAH7541-00-21 08:40:00 Test Item Value Reference Range Interpretation Comments A/G Ratio (test code = A/G Ratio) 1.1 0.7-1.6 N [facility] HospitalXsaujwrHMFYBHUCR9637-96-61 08:40:00 Test Item Value Reference Range Interpretation Comments B/C Ratio (test code = B/C Ratio) 14 6-25 N [facility] HospitalShppqvqHISNGTXVX4355-05-88 08:40:00 Test Item Value Reference Range Interpretation Comments Globulin (test code = Globulin) 3.1 2.0-4.0 N [place] [address]-06-02 08:40:00 Test Item Value Reference Range Interpretation Comments FTI (test code = FTI) 2.8 [facility] CenterHliqroaCECWOPZMJW8465-48-12 08:40:00 Test Item Value Reference Range Interpretation Comments PTT (test code = PTT) 32.4 s 22.9-35.8 N [facility] CenterSaqxkhuYQTIUVHKDT7313-82-81 08:40:00 Test Item Value Reference Range Interpretation Comments PT (test code = PT) 13.0 s 12.0-14.7 N [facility] CenterUbckfzsTKEPLNGDRF6885-39-46 08:40:00 Test Item Value Reference Range Interpretation Comments INR (test code = INR) 0.98 0.85-1.17 N [facility] HospitalLliicegIXDGBEQAE0979-01-33 08:40:00 Test Item Value Reference Range Interpretation Comments TSH (test code = TSH) 3.390 0.360-3.740 N [facility] HospitalDqjttneFTUCGNZUP2474-21-01 08:40:00 Test Item Value Reference Range Interpretation Comments T4 (test code = T4) 8.5 4.7-13.3 N [facility] HospitalEsqbjggRGUFPCUWW4396-12-75 08:40:00 Test Item Value Reference Range Interpretation Comments T3 Uptake (test code = T3 Uptake) 33 31-39 N [facility] HospitalKgwvsrtALBWWBNVY4087-76-66 08:40:00 Test Item Value Reference Range Interpretation Comments TSH (test code = TSH) 3.390 0.360-3.740 N [facility] HospitalBbdzcquKSPULSWDO7005-48-95 08:40:00 Test Item Value Reference Range Interpretation Comments Total Protein (test code = Total 6.4 6.4-8.4 N Protein) [facility] HospitalPtmutgpTWSFEURHX4889-49-73 08:40:00 Test Item Value Reference Range Interpretation Comments AST (test code = AST) 14 See_Comment N [Auto mated message] The system which ge nerated this result transmit lorie reference range : <=37. The reference range was not used to interpr et this result as asher l/abnormal. [facility] HospitalUuupexpAYUUAILAO1575-62-02 08:40:00 Test Item Value Reference Range Interpretation Comments Bili Total (test code = Bili Total) 0.4 0.2-1.3 N [facility] HospitalRqdqtsdSCHQUHRMK0221-69-77 08:40:00 Test Item Value Reference Range Interpretation Comments ALT (test code = ALT) 24 See_Comment N [Auto mated message] The system which ge nerated this result transmit lorie reference range : <=65. The reference range was not used to interpr et this result as asher l/abnormal. [facility] HospitalOwgbeksUOTBXDWVO5303-74-55 08:40:00 Test Item Value Reference Range Interpretation Comments Alk Phos (test code = Alk Phos) 81 39-136 N [facility] HospitalCrxasorQGZAAOJXB3892-25-65 08:40:00 Test Item Value Reference Range Interpretation Comments Albumin Lvl (test code = Albumin Lvl) 3.3 3.5-5.0 L [facility] HospitalTlpbcdhIMXLZSYTS4034-05-42 08:40:00 Test Item Value Reference Range Interpretation Comments A/G Ratio (test code = A/G Ratio) 1.1 0.7-1.6 N [facility] HospitalUspzvejOPAXESTMU7126-78-30 08:40:00 Test Item Value Reference Range Interpretation Comments B/C Ratio (test code = B/C Ratio) 14 6-25 N [facility] HospitalDkvvuyqWKMNBQUOX2304-10-73 08:40:00 Test Item Value Reference Range Interpretation Comments Globulin (test code = Globulin) 3.1 2.0-4.0 N [facility]WwmqjgkBTGURZXNN7515-38-79 08:40:00 Test Item Value Reference Range Interpretation Comments FTI (test code = FTI) 2.8 [facility]JindpguLLSAYYNPJC8182-98-50 08:40:00 Test Item Value Reference Range Interpretation Comments PTT (test code = PTT) 32.4 s 22.9-35.8 N [facility] CenterIllmuzrODMLVAKJEK0754-80-07 08:40:00 Test Item Value Reference Range Interpretation Comments PT (test code = PT) 13.0 s 12.0-14.7 N [facility] CenterXugypfaSMZFZHTHYW7677-41-40 08:40:00 Test Item Value Reference Range Interpretation Comments INR (test code = INR) 0.98 0.85-1.17 N [facility] HospitalFhbqmmfWHBJSGPXB7180-95-99 08:40:00 Test Item Value Reference Range Interpretation Comments TSH (test code = TSH) 3.390 0.360-3.740 N [facility] HospitalKgujbcxOHTYCHEWS4095-72-46 08:40:00 Test Item Value Reference Range Interpretation Comments T4 (test code = T4) 8.5 4.7-13.3 N [facility] HospitalDzunzlqQBLSXIVEU6543-56-72 08:40:00 Test Item Value Reference Range Interpretation Comments T3 Uptake (test code = T3 Uptake) 33 31-39 N [facility] HospitalIxbeoykJRXBJKEXB9155-03-95 08:40:00 Test Item Value Reference Range Interpretation Comments TSH (test code = TSH) 3.390 0.360-3.740 N [facility] HospitalIixgypsKPCQSHXBQ8547-51-69 08:40:00 Test Item Value Reference Range Interpretation Comments Total Protein (test code = Total 6.4 6.4-8.4 N Protein) [facility] HospitalNrkshcfVNKXHSELY8119-33-30 08:40:00 Test Item Value Reference Range Interpretation Comments AST (test code = AST) 14 See_Comment N [Auto mated message] The system which ge nerated this result transmit lorie reference range : <=37. The reference range was not used to interpr et this result as asher l/abnormal. [facility]XzuiymtVIWZBSBJG7295-61-85 08:40:00 Test Item Value Reference Range Interpretation Comments Bili Total (test code = Bili Total) 0.4 0.2-1.3 N [facility] HospitalDkojywuGCFPDVEHO1924-12-99 08:40:00 Test Item Value Reference Range Interpretation Comments ALT (test code = ALT) 24 See_Comment N [Auto mated message] The system which ge nerated this result transmit lorie reference range : <=65. The reference range was not used to interpr et this result as asher l/abnormal. [facility] HospitalOfcfbkmFZHIQJZTK6800-10-73 08:40:00 Test Item Value Reference Range Interpretation Comments Alk Phos (test code = Alk Phos) 81 39-136 N [facility] HospitalXewvkekHKPUNAZAL7972-89-77 08:40:00 Test Item Value Reference Range Interpretation Comments Albumin Lvl (test code = Albumin Lvl) 3.3 3.5-5.0 L [facility] HospitalMvyoazqKVNQRBMSG8117-29-22 08:40:00 Test Item Value Reference Range Interpretation Comments A/G Ratio (test code = A/G Ratio) 1.1 0.7-1.6 N [facility] HospitalBuxjdbyAGMFONHRR2466-52-10 08:40:00 Test Item Value Reference Range Interpretation Comments B/C Ratio (test code = B/C Ratio) 14 6-25 N [facility] HospitalBuwiwnaEESEGKEEG9935-45-35 08:40:00 Test Item Value Reference Range Interpretation Comments Globulin (test code = Globulin) 3.1 2.0-4.0 N [facility] HospitalVlxfreoBYJXCZTDK0174-10-65 08:40:00 Test Item Value Reference Range Interpretation Comments FTI (test code = FTI) 2.8 [facility]GzqxugkBUXKZTFPLN5488-30-15 08:40:00 Test Item Value Reference Range Interpretation Comments PTT (test code = PTT) 32.4 s 22.9-35.8 N [facility] CenterTuljkdiPGFJRZEGFQ8852-76-00 08:40:00 Test Item Value Reference Range Interpretation Comments PT (test code = PT) 13.0 s 12.0-14.7 N [facility] CenterOkkfmgpBBXPSFPFDW1911-19-95 08:40:00 Test Item Value Reference Range Interpretation Comments INR (test code = INR) 0.98 0.85-1.17 N [facility] HospitalLshuekiMTSMAOPYF6142-51-89 08:40:00 Test Item Value Reference Range Interpretation Comments TSH (test code = TSH) 3.390 0.360-3.740 N [facility] HospitalKnagvghHMUSAYMCP4073-00-72 08:40:00 Test Item Value Reference Range Interpretation Comments T4 (test code = T4) 8.5 4.7-13.3 N [facility] HospitalBdtdxzqDENLWXCWB2851-85-38 08:40:00 Test Item Value Reference Range Interpretation Comments T3 Uptake (test code = T3 Uptake) 33 31-39 N [facility] HospitalUyssaidPYOQJIRYZ3460-65-82 08:40:00 Test Item Value Reference Range Interpretation Comments TSH (test code = TSH) 3.390 0.360-3.740 N [facility] HospitalTclcxlgOTXGJJFSB2982-37-60 08:40:00 Test Item Value Reference Range Interpretation Comments Total Protein (test code = Total 6.4 6.4-8.4 N Protein) [facility] HospitalQnjvsfmQPQDLDRIW8855-32-66 08:40:00 Test Item Value Reference Range Interpretation Comments AST (test code = AST) 14 See_Comment N [Auto mated message] The system which ge nerated this result transmit lorie reference range : <=37. The reference range was not used to interpr et this result as asher l/abnormal. [facility] HospitalBemehnfFUGXBKGQF4548-36-83 08:40:00 Test Item Value Reference Range Interpretation Comments Bili Total (test code = Bili Total) 0.4 0.2-1.3 N [facility] HospitalEntmbvoZNDMZUKRZ3800-21-74 08:40:00 Test Item Value Reference Range Interpretation Comments TSH (test code = TSH) 3.390 0.360-3.740 N [facility] HospitalHgktgncKWKDMXQZP6119-94-62 08:40:00 Test Item Value Reference Range Interpretation Comments T4 (test code = T4) 8.5 4.7-13.3 N [facility] HospitalRnwdbeqNIEXAKFIH1243-33-31 08:40:00 Test Item Value Reference Range Interpretation Comments T3 Uptake (test code = T3 Uptake) 33 31-39 N [facility] HospitalVuffnqmRRAMQVTTV5137-03-27 08:40:00 Test Item Value Reference Range Interpretation Comments TSH (test code = TSH) 3.390 0.360-3.740 N [facility] HospitalGkksukmIIQIZWKAU9700-16-96 08:40:00 Test Item Value Reference Range Interpretation Comments Total Protein (test code = Total 6.4 6.4-8.4 N Protein) [facility] HospitalGnuwzlbDAHDLUSUJ3890-39-29 08:40:00 Test Item Value Reference Range Interpretation Comments AST (test code = AST) 14 <=37 N [facility] HospitalIbbdbdrKGFSOXAHE9502-74-09 08:40:00 Test Item Value Reference Range Interpretation Comments Bili Total (test code = Bili Total) 0.4 0.2-1.3 N [facility] HospitalCgtarwaQMVZNKVWD2741-87-69 08:40:00 Test Item Value Reference Range Interpretation Comments ALT (test code = ALT) 24 <=65 N [facility] HospitalBygxytiNYYJHCVVK4577-88-23 08:40:00 Test Item Value Reference Range Interpretation Comments Alk Phos (test code = Alk Phos) 81 39-136 N [facility] HospitalQixfkyyWIBRTHUHP3424-86-04 08:40:00 Test Item Value Reference Range Interpretation Comments Albumin Lvl (test code = Albumin Lvl) 3.3 3.5-5.0 L [facility] HospitalSlwbgvcAJJFVYKYH2218-83-12 08:40:00 Test Item Value Reference Range Interpretation Comments A/G Ratio (test code = A/G Ratio) 1.1 0.7-1.6 N [facility] HospitalOktpadmBOQZMKIOB7839-11-70 08:40:00 Test Item Value Reference Range Interpretation Comments B/C Ratio (test code = B/C Ratio) 14 6-25 N [facility] HospitalYymucxaXDGWCPAPA5164-07-95 08:40:00 Test Item Value Reference Range Interpretation Comments Globulin (test code = Globulin) 3.1 2.0-4.0 N [facility] HospitalQkfmviwCHCQXVPJZ5315-02-37 08:40:00 Test Item Value Reference Range Interpretation Comments FTI (test code = FTI) 2.8 [facility] CenterRgrnhaaDXLSAWULJO8794-93-52 08:40:00 Test Item Value Reference Range Interpretation Comments PTT (test code = PTT) 32.4 s 22.9-35.8 N [facility] CenterHszxuekPASVIAPDIC9201-23-27 08:40:00 Test Item Value Reference Range Interpretation Comments PT (test code = PT) 13.0 s 12.0-14.7 N [facility] CenterUkkeseqVFNDULSZXA2260-10-80 08:40:00 Test Item Value Reference Range Interpretation Comments INR (test code = INR) 0.98 0.85-1.17 [facility]
--- NOTE | 2023-03-12 15:10 | RAD REPORT ---
EXAM DESCRIPTION: CT - Head Brain Wo Cont - 03/12/2023 2:55 pm CLINICAL HISTORY: HEADACHE Headache, drowsiness COMPARISON: Head Brain Wo Cont dated 11/09/2022; Head Brain Wo Cont dated 09/12/2022; Head Brain Wo Co nt dated 05/21/2022 TECHNIQUE: All CT scans are performed using dose optimization technique as appropriate and may inclu de automated exposure control or mA/KV adjustment according to patient size. FINDINGS: No intracranial hemorrhage, hydrocephalus or extra-axial fluid collection.Mild generalized brain atrophy.No areas of brain edema or evidence of midline shift. The paranasal sinuses and mastoids are clear. The calvarium is intact. IMPRESSION: No acute intracranial abnormality.
--- NOTE | 2023-03-12 15:11 | RAD REPORT ---
EXAM DESCRIPTION: RAD - Chest Single View - 03/12/2023 3:04 pm CLINICAL HISTORY: COUGH Chest pain. COMPARISON: Chest Single View dated 11/09/2022; Chest Single View dated 09/12/2022; Chest Single View dated 05/20/2022; Chest Single View dated 05/18/2022 FINDINGS: Portable technique limits examination quality. Mild interstitial pulmonary edema suspected, likely chronic. The heart is mildly enlarged in size. No displaced fractures.Sternotomy wires. IMPRESSION: Mild CHF.
[2023-03-12] MEDS ORDERED: NA CHLORIDE 0.9% 1,000 ML ONE (15:15)
[2023-03-12] MEDS ORDERED: FENTANYL CITR 100 MCG/2 ML ONE (15:27)
[2023-03-12] MEDS ORDERED: ONDANSETRON 4 MG/2 ML VIAL ONE (15:28)
[2023-03-12 15:37] LABS: Absolute Lymphocytes (CBC) 2.6 K/uL (0.7-4.9); Hematocrit 39.7 % (39.6-49.0); MCV 80.5 fL (80-100); MPV 8.3 fL (7.6-11.3); Platelets 342 thou/uL (152-406); RBC Red Blood Cell Count 4.94 M/uL (4.33-5.43)
[2023-03-12 15:56] LABS: ALT/SGPT 12 U/L (16-61); AST/SGOT 8 U/L (15-37); Albumin 3.4 g/dL (3.4-5.0); Alkaline Phosphatase 73 U/L (45-117); BUN Blood Urea Nitrogen 11 mg/dL (7-18); Bicarbonate 27 mEq/L (21-32); Bilirubin Total 0.2 mg/dL (0.2-1.0); Glomerular Filtration Rate 96 ml/min (=/>90); Glucose Level 96 mg/dL (74-106); Lipase 46 U/L (13-75); Magnesium 2.5 mg/dL (1.6-2.4); NT PRO-BNP 201 pg/mL (<125); Potassium 4.1 mEq/L (3.5-5.1); Protein, Total 8.2 g/dL (6.4-8.2); Sodium Level 141 mEq/L (136-145); Troponin High Sensitivity 17.8 pg/mL (<58.9)
[2023-03-12 15:57] LABS: Bilirubin Direct < 0.1 mg/dL (0-0.2); Bilirubin Indirect, Calculated ND mg/dL (0.2-0.8)
[2023-03-12 16:18] LABS: SARS-CoV-2 Antigen Rapid Res Negative (Negative)
[2023-03-12 16:40] LABS: Protime INR 1.07
[2023-03-12] MEDS ORDERED: CLOPIDOGREL 75 MG TABLET ONE (17:11)
[2023-03-12] MEDS ORDERED: CEFTRIAXONE 1000 MG/VIAL ONE (17:11)
[2023-03-12] MEDS ORDERED: AZITHROMYCIN 500 MG INJ IVPB ONE (17:11)
[2023-03-12] MEDS ORDERED: FAMOTIDINE 20 MG/2 ML VIAL IV ONE (17:12)
[2023-03-12] MEDS ORDERED: NA CHLORIDE 0.9% 250 ML ONE (17:12)
[2023-03-12] MEDS ORDERED: NA CHLORIDE 0.9% 50 ML ONE (17:12)
--- NOTE | 2023-03-12 17:17 | ER ---
Nurse's Notes [facility] Name: Bryan Graf Age: 72 yrs Sex: Male : 1950 Arrival Date: 03/12/2023 Time: 14:24 Bed 17 Private MD: Diagnosis: Fever, unspecified;Chest pain, unspecified;Weakness;Altered mental status, unspecified Presentation: 03/12 14:30 Chief complaint: EMS states: FEELING WEAK. PT APPEARS LETHARGIC. CHEST PAIN STARTED db TODAY AND BACK OF HEAD PAIN. Coronavirus screen: Vaccine status: Patient reports receiving the 2nd dose of the covid vaccine. Client denies travel out of the [place] in the last 14 days. At this time, the client does not indicate any symptoms associated with coronavirus-19. Ebola Screen: Patient negative for fever greater than or equal to 101.5 degrees Fahrenheit, and additional compatible Ebola Virus Disease symptoms Patient denies exposure to infectious person. Patient denies travel to an Ebola-affected area in the 21 days before illness onset. No symptoms or risks identified at this time. Initial Sepsis Screen: Does the patient meet any 2 criteria? Altered Mental Status. No. Patient's initial sepsis screen is negative. Does the patient have a suspected source of infection? No. Patient's initial sepsis screen is negative. Risk Assessment: Do you want to hurt yourself or someone else? Patient reports no desire to harm self or others. Onset of symptoms was March 12, 2023 at 15:08. Care prior to arrival: Glucose check: 116. 14:30 Method Of Arrival: EMS: [facility] db 14:30 Acuity: GELACIO 2 db Triage Assessment: 15:08 General: Appears in no apparent distress. comfortable, Behavior is cooperative, quiet. db Pain: Complains of pain in chest. Neuro: Level of Consciousness is awake, obeys commands, lethargic, Oriented to person, place, time, Speech is normal. Cardiovascular: Reports chest pain, Capillary refill < 3 seconds Patient's skin is warm and dry. Respiratory: Airway is patent Respiratory effort is even, unlabored, Respiratory pattern is regular, symmetrical. Historical: - Allergies: 15:08 Aspirin; db 15:08 PENICILLINS; db - Home Meds: 15:08 Keppra Oral [Active]; db - PMHx: 15:08 Chronic pain; COPD; Hypertension; Migraine; Pneumonia; Seizures; CVA; swelling and pain db to L lower leg; - PSHx: 15:08 back surgery; heart surgery; Right hip surgery; db - Immunization history:: Adult Immunizations unknown. - Social history:: Smoking status: Patient reports the use of cigarette tobacco products, smokes one-half pack cigarettes per day. - Family history:: not pertinent. Screenin:26 [facility] ED Fall Risk Assessment (Adult) History of falling in the last 3 months, kc6 including since admission No falls in past 3 months (0 pts) Confusion or Disorientation No (0 pts) Intoxicated or Sedated No (0 pts) Impaired Gait No (0 pts) Mobility Assist Device Used No (0 pt) Altered Elimination No (0 pt) Score/Fall Risk Level 0 - 2 = Low Risk. Abuse screen: Denies threats or abuse. Denies injuries from another. Nutritional screening: No deficits noted. Tuberculosis screening: No symptoms or risk factors identified. Assessment: 15:00 Reassessment: Patient appears in no apparent distress at this time. Patient and/or db family updated on plan of care and expected duration. Pain level reassessed. Patient is alert, oriented x 3, equal unlabored respirations, skin warm/dry/pink. Cardiovascular: Reports chest pain, Capillary refill < 3 seconds Rhythm is sinus rhythm. 16:00 Reassessment: Patient appears in no apparent distress at this time. Patient and/or db family updated on plan of care and expected duration. Pain level reassessed. Patient is alert, oriented x 3, equal unlabored respirations, skin warm/dry/pink. 17:00 Reassessment: Patient appears in no apparent distress at this time. Patient and/or db family updated on plan of care and expected duration. Pain level reassessed. Patient is alert, oriented x 3, equal unlabored respirations, skin warm/dry/pink. 18:00 Reassessment: Patient appears in no apparent distress at this time. Patient and/or db family updated on plan of care and expected duration. Pain level reassessed. Patient is alert, oriented x 3, equal unlabored respirations, skin warm/dry/pink. PT IS RESTING. EASILY AROUSABLE. General: Appears in no apparent distress. comfortable, Behavior is calm, cooperative, quiet. Neuro: Level of Consciousness is awake, obeys commands, Oriented to person, place, time, situation. Respiratory: Airway is patent Respiratory effort is even, unlabored, Respiratory pattern is regular, symmetrical. 19:00 Reassessment: No changes from previously documented assessment. Patient and/or family vc1 updated on plan of care and expected duration. Pain level reassessed. Patient is alert, oriented x 3, equal unlabored respirations, skin warm/dry/pink. 20:00 Reassessment: No changes from previously documented assessment. Patient and/or family vc1 updated on plan of care and expected duration. Pain level reassessed. Patient is alert, oriented x 3, equal unlabored respirations, skin warm/dry/pink. 21:00 Reassessment:. Pain: Complains of pain in chest Pain currently is 10 out of 10 on a vc1 pain scale. Aggravated by increased activity, deep breaths. 22:00 Reassessment: Patient and/or family updated on plan of care and expected duration. Pain vc1 level reassessed. Patient is alert, oriented x 3, equal unlabored respirations, skin warm/dry/pink. Patient states symptoms have improved. 23:00 Reassessment: Patient and/or family updated on plan of care and expected duration. Pain vc1 level reassessed. Patient is alert, oriented x 3, equal unlabored respirations, skin warm/dry/pink. Patient states feeling better. Patient states symptoms have improved. 03/13 00:00 Reassessment: No changes from previously documented assessment. Patient and/or family vc1 updated on plan of care and expected duration. Pain level reassessed. Patient is alert, oriented x 3, equal unlabored respirations, skin warm/dry/pink. 09:21 Reassessment: attempted to call report to 4th floor. jimmie is unsure who is getting the [facility] pt and will call me back. 09:52 Reassessment: attempted to call report to 4th floor. nurse perez states they don't know [facility] who is getting the patient. data warehouse developer notified. stated she will call me back. 10:39 Reassessment: pt is up for discharge per Dr. Osuna. called and spoke with pts yue Whitehead. stated she will be here in an hour. Vital Signs: 03/12 14:30 BP 127 / 78; Pulse 73; Resp 18; Temp 97.6(O); Pulse Ox 97% ; Weight 72.57 kg; Height 5 db ft. 8 in. ; 14:30 BP 130 / 70; Pulse 75; Resp 16; Pulse Ox 96% on R/A; db 15:00 BP 136 / 69; Pulse 72; Resp 18; Pulse Ox 98% on R/A; db 16:00 BP 160 / 67; Pulse 75; Resp 18; Pulse Ox 97% on R/A; db 16:30 BP 145 / 68; Pulse 65; Resp 16; Pulse Ox 97% on R/A; db 17:30 BP 144 / 75; Pulse 72; Resp 18; Pulse Ox 98% on R/A; db 18:00 BP 153 / 72; Pulse 67; Resp 16; Pulse Ox 98% on R/A; db 18:30 BP 148 / 74; Pulse 62; Resp 16; Pulse Ox 98% on R/A; db 19:00 BP 127 / 74; Pulse 59; Resp 16; Pulse Ox 99% ; vc1 20:00 BP 156 / 76; Pulse 61; Resp 15; Pulse Ox 98% ; vc1 21:00 BP 135 / 80; Pulse 66; Resp 16; Pulse Ox 98% ; vc1 22:00 BP 146 / 76; Pulse 65; Resp 15; Pulse Ox 97% ; vc1 23:00 BP 157 / 72; Pulse 67; Resp 15; Pulse Ox 96% ; vc1 03/13 00:00 BP 152 / 72; Pulse 65; Resp 15; Pulse Ox 98% ; vc1 01:00 BP 146 / 72; Pulse 67; Resp 16; Pulse Ox 97% ; vc1 03/12 14:30 Body Mass Index 24.33 (72.57 kg, 172.72 cm) db Natalie Coma Score: 03/12 16:56 Eye Response: spontaneous(4). Motor Response: obeys commands(6). Verbal Response: nicolette oriented(5). Total: 15. ED Course: 14:31 Patient arrived in ED. iw 14:33 Luis Eduardo Stover MD is Attending Physician. nicolette 14:52 Angelika Rosales, JOSEPH is Primary Nurse. db 14:56 CT Head Brain wo Cont In Process Unspecified. EDMS 15:06 XRAY Chest (1 view) In Process Unspecified. EDMS 15:08 Triage completed. db 15:08 Arm band placed on Patient placed in an exam room. db 15:10 Maintain EMS IV. Dressing intact. Good blood return noted. Site clean \T\ dry. Gauge \T\ db site: 22 G R HAND. 15:25 Inserted saline lock: 20 gauge in right forearm, using aseptic technique. Blood kc6 collected. Patient maintains SpO2 saturation greater than 95% on room air. 15:26 Patient has correct armband on for positive identification. Bed in low position. Call kc6 light in reach. Side rails up X2. Client placed on continuous cardiac and pulse oximetry monitoring. NIBP monitoring applied. library monitor on. 16:30 Urinalysis w/ reflexes Sent. kc6 17:14 Sena Osuna MD is Hospitalizing Provider. nicolette 18:15 Repeat lab(s) drawn. by me. db 19:20 Abhishek Blue, JOSEPH is Primary Nurse. bp 03/13 01:00 Provided Education on: safety; fall risk. vc1 01:00 No provider procedures requiring assistance completed. Patient admitted, IV remains in vc1 place. Administered Medications: 03/12 15:25 Drug: NS 0.9% IV 1000 ml IV at 1 bolus Per protocol; 1000 mL bolus Route: IV; Rate: 1 kc6 bolus; Site: right forearm; 16:30 Follow up: Response: No adverse reaction; IV Status: Completed infusion; IV Intake: kc6 1000ml 15:25 Drug: fentaNYL (PF) IVP 25 mcg IVP once Route: IVP; Site: right forearm; kc6 16:30 Follow up: Response: No adverse reaction; Pain is unchanged, physician notified; RASS: kc6 Alert and Calm (0) 15:25 Drug: Ondansetron IVP 4 mg IVP once; over 2 minutes Route: IVP; Site: right forearm; kc6 16:30 Follow up: Response: No adverse reaction kc6 17:00 Drug: Rocephin IV 1 grams IV at per protocol once; Given slow IV push per pharmacy db instructions Route: IV; Rate: per protocol; Site: right antecubital; 17:02 Drug: Famotidine IVP 20 mg IVP once; dilute with 10 mL 0.9% NaCl; give over 2 minutes db Route: IVP; Site: right antecubital; 19:00 Follow up: Response: No adverse reaction vc1 17:05 Drug: Clopidogrel PO 75 mg PO once Route: PO; db 19:00 Follow up: Response: No adverse reaction vc1 17:08 Drug: Zithromax IVPB 500 mg IVPB once over 1 hrs; mix in 250 mL NS Route: IVPB; Infused db Over: 1 hrs; Site: right antecubital; Medication: 20:47 VIS not applicable for this client. vc1 Intake: 16:30 IV: 1000ml; Total: 1000ml. kc6 Outcome: 17:16 Decision to Hospitalize by Provider. nicolette 03/13 01:00 Admitted to ER Hold. Please see [facility] for further documentation. vc1 Condition: good Instructed on the need for admit, 12:10 Patient left the ED. kc6 Signatures: Dispatcher [employer] EDLuis Eduardo Neves MD MD cha Williams, Irene, RN RN iw Peltier, Brian, RN RN bp Calcote, Vanessa, RN RN vc1 Alma Maurer RN RN kc6 Angelika Rosales RN RN db Corrections: (The following items were deleted from the chart) 03/12 15:10 14:30 Chief complaint: EMS states: FEELING WEAK. PT APPEARS LETHARGIC. db db
--- NOTE | 2023-03-12 17:17 | EDPHYS ---
Physician Documentation [facility] Name: Bryan Graf Age: 72 yrs Sex: Male : 1950 Arrival Date: 03/12/2023 Time: 14:24 Bed 17 Private MD: LIBERTAD Physician Luis Eduardo Stover HPI: 03/12 16:51 This 72 yrs old Male presents to ER via EMS with complaints of General nicolette Weakness. 16:51 The patient complains of pain to the top of head, forehead, left frontal area, left nicolette side of the back of head, right side of the back of head, right occipital area and right base of the skull. The patient describes the headache as aching. Onset: The symptoms/episode began/occurred 1 day(s) ago. The patient or guardian reports chest pain that is located primarily in the anterior chest wall, bilaterally. at home weak, cp, nazario. The pain does not radiate. Associated signs and symptoms: Pertinent positives: fever, weakness. Headache History: Denies prior headaches. Historical: - Allergies: 15:08 Aspirin; db 15:08 PENICILLINS; db - Home Meds: 15:08 Keppra Oral [Active]; db - PMHx: 15:08 Chronic pain; COPD; Hypertension; Migraine; Pneumonia; Seizures; CVA; swelling and pain db to L lower leg; - PSHx: 15:08 back surgery; heart surgery; Right hip surgery; db - Immunization history:: Adult Immunizations unknown. - Social history:: Smoking status: Patient reports the use of cigarette tobacco products, smokes one-half pack cigarettes per day. - Family history:: not pertinent. ROS: 16:51 Constitutional: Negative for fever, chills, and weight loss, Eyes: Negative for injury, nicolette pain, redness, and discharge, ENT: Negative for injury, pain, and discharge, Neck: Negative for injury, pain, and swelling, Cardiovascular: Negative for chest pain, palpitations, and edema, Respiratory: Negative for shortness of breath, cough, wheezing, and pleuritic chest pain, Abdomen/GI: Negative for abdominal pain, nausea, vomiting, diarrhea, and constipation, Back: Negative for injury and pain, : Negative for injury, bleeding, discharge, and swelling, MS/Extremity: Negative for injury and deformity, Skin: Negative for injury, rash, and discoloration, Psych: Negative for depression, anxiety, suicide ideation, homicidal ideation, and hallucinations, Allergy/Immunology: Negative for hives, rash, and allergies, Endocrine: Negative for neck swelling, polydipsia, polyuria, polyphagia, and marked weight changes, Hematologic/Lymphatic: Negative for swollen nodes, abnormal bleeding, and unusual bruising, 16:51 Neuro: Positive for altered mental status, dizziness, weakness, Exam: 16:51 Constitutional: This is a well developed, well nourished patient who is awake, alert, nicolette and in no acute distress. Head/Face: Normocephalic, atraumatic. Eyes: Pupils equal round and reactive to light, extra-ocular motions intact. Lids and lashes normal. Conjunctiva and sclera are non-icteric and not injected. Cornea within normal limits. Periorbital areas with no swelling, redness, or edema. Neck: Trachea midline, no thyromegaly or masses palpated, and no cervical lymphadenopathy. Supple, full range of motion without nuchal rigidity, or vertebral point tenderness. No Meningismus. Chest/axilla: Normal chest wall appearance and motion. Nontender with no deformity. No lesions are appreciated. Cardiovascular: Regular rate and rhythm with a normal S1 and S2. No gallops, murmurs, or rubs. Normal PMI, no JVD. No pulse deficits. Respiratory: Lungs have equal breath sounds bilaterally, clear to auscultation and percussion. No rales, rhonchi or wheezes noted. No increased work of breathing, no retractions or nasal flaring. Abdomen/GI: Soft, non-tender, with normal bowel sounds. No distension or tympany. No guarding or rebound. No evidence of tenderness throughout. Back: No spinal tenderness. No costovertebral tenderness. Full range of motion. Male : Normal genitalia with no discharge or lesions. Skin: Warm, dry with normal turgor. Normal color with no rashes, no lesions, and no evidence of cellulitis. MS/ Extremity: Pulses equal, no cyanosis. Neurovascular intact. Full, normal range of motion. Psych: Awake, alert, with orientation to person, place and time. Behavior, mood, and affect are within normal limits. 16:51 ENT: Mouth: Gums: noted to have cellulitis, poor dentition, 16:51 ECG was reviewed by the Attending Physician. Vital Signs: 14:30 BP 127 / 78; Pulse 73; Resp 18; Temp 97.6(O); Pulse Ox 97% ; Weight 72.57 kg; Height 5 db ft. 8 in. ; 14:30 BP 130 / 70; Pulse 75; Resp 16; Pulse Ox 96% on R/A; db 15:00 BP 136 / 69; Pulse 72; Resp 18; Pulse Ox 98% on R/A; db 16:00 BP 160 / 67; Pulse 75; Resp 18; Pulse Ox 97% on R/A; db 16:30 BP 145 / 68; Pulse 65; Resp 16; Pulse Ox 97% on R/A; db 17:30 BP 144 / 75; Pulse 72; Resp 18; Pulse Ox 98% on R/A; db 18:00 BP 153 / 72; Pulse 67; Resp 16; Pulse Ox 98% on R/A; db 18:30 BP 148 / 74; Pulse 62; Resp 16; Pulse Ox 98% on R/A; db 19:00 BP 127 / 74; Pulse 59; Resp 16; Pulse Ox 99% ; vc1 20:00 BP 156 / 76; Pulse 61; Resp 15; Pulse Ox 98% ; vc1 21:00 BP 135 / 80; Pulse 66; Resp 16; Pulse Ox 98% ; vc1 22:00 BP 146 / 76; Pulse 65; Resp 15; Pulse Ox 97% ; vc1 23:00 BP 157 / 72; Pulse 67; Resp 15; Pulse Ox 96% ; vc1 03/13 00:00 BP 152 / 72; Pulse 65; Resp 15; Pulse Ox 98% ; vc1 01:00 BP 146 / 72; Pulse 67; Resp 16; Pulse Ox 97% ; vc1 03/12 14:30 Body Mass Index 24.33 (72.57 kg, 172.72 cm) db Natalie Coma Score: 03/12 16:56 Eye Response: spontaneous(4). Motor Response: obeys commands(6). Verbal Response: nicolette oriented(5). Total: 15. MDM: 14:33 Patient medically screened. nicolette 16:56 Differential diagnosis: cluster headache, abnormal EKG, acute myocardial infarction, nicolette acute pericarditis, anxiety, coronary artery disease chest wall pain, congestive heart failure gastritis, pancreatitis, pneumonia, stable angina, unstable angina, hyponatremia, migraine, sinusitis, tension headache. Differential Diagnosis altered mental status, sepsis, flu. HEART Score: History: Slightly Suspicious (0), ECG: Non specific repolarization disturbance / LBTB / PM (1), Age: > or = 65 years (2), Risk Factors: > or = 3 Risk factors for atherosclerotic disease (2), [Hypercholesterolemia] [Hypertension] [+ Family HX] Troponin: < or = 1 x Normal Limit (0). The patient was not given aspirin in the Emergency Department. Not indicated due to patient's past medical history. Data reviewed: vital signs, nurses notes, lab test result(s), EKG, radiologic studies, CT scan, plain films. Consideration of Admission/Observation Patient was admitted/placed on observation. Escalation of care including admission/observation considered. I considered the following discharge prescriptions or medication management in the emergency department Medications were administered in the Emergency Department. See MAR. Test considered but Not performed: CT: no ct chest. Care significantly affected by the following chronic conditions: Chronic Obstructive Pulmonary Disease, migrine, seizures, copd. Counseling: I had a detailed discussion with the patient and/or guardian regarding the historical points, exam findings, and any diagnostic results supporting the discharge/admit diagnosis, lab results, radiology results, the need for further work-up and treatment in the hospital. 17:10 Independent interpretation of the following test(s) in the Emergency Department EKG: nicolette See my EKG interpretation above. 03/12 14:35 Order name: Basic Metabolic Panel; Complete Time: 16:41 [facility] 03/12 14:35 Order name: CBC with Diff [facility] 03/12 14:35 Order name: LFT's; Complete Time: 16:41 [facility] 03/12 14:35 Order name: Magnesium; Complete Time: 16:41 [facility] 03/12 14:35 Order name: NT PRO-BNP; Complete Time: 16:41 [facility] 03/12 14:35 Order name: PT-INR; Complete Time: 16:41 [facility] 03/12 14:35 Order name: Troponin HS; Complete Time: 16:41 [facility] 03/12 14:35 Order name: Lipase; Complete Time: 16:41 [facility] 03/12 14:35 Order name: Blood Culture Adult (2) [facility] 03/12 14:35 Order name: Lactate w/ 2H reflex if indic.; Complete Time: 16:41 [facility] 03/12 14:35 Order name: Urinalysis w/ reflexes [facility] 03/12 14:35 Order name: Flu [facility] 03/12 14:35 Order name: SARS RAPID; Complete Time: 16:41 [facility] 03/12 17:39 Order name: Basic Metabolic Panel [facility] 03/12 17:39 Order name: Basic Metabolic Panel [facility] 03/12 17:39 Order name: CBC with Automated Diff [facility] 03/12 17:39 Order name: CBC with Automated Diff [facility] 03/12 17:39 Order name: Lipid Profile [facility] 03/12 17:39 Order name: Lipid Profile [facility] 03/12 17:39 Order name: Troponin High Sensitivity [facility] 03/12 17:41 Order name: Troponin High Sensitivity [facility] 03/12 18:41 Order name: Lactate Sepsis 2 HR Follow-up [facility] 03/12 21:02 Order name: CBC Smear Scan [facility] 03/12 14:35 Order name: XRAY Chest (1 view); Complete Time: 16:41 [facility] 03/12 14:35 Order name: CT Head Brain wo Cont; Complete Time: 16:41 [facility] 03/12 17:39 Order name: Echo with Doppler [facility] 03/12 14:35 Order name: EKG; Complete Time: 14:36 [facility] 03/12 17:39 Order name: CONS Physician Consult [facility] 03/12 14:35 Order name: Cardiac monitoring; Complete Time: 15:25 [facility] 03/12 14:35 Order name: EKG - Nurse/Tech; Complete Time: 15:00 [facility] 03/12 14:35 Order name: IV Saline Lock; Complete Time: 15:25 [facility] 03/12 14:35 Order name: Labs collected and sent; Complete Time: 15:25 [facility] 03/12 14:35 Order name: O2 Per Protocol; Complete Time: 15:00 [facility] 03/12 14:35 Order name: O2 Sat Monitoring; Complete Time: 15:00 [facility] EC:51 Rate is 77 beats/min. Rhythm is regular. QRS [place] is Normal. AR interval is prolonged nicolette at 248 msec. QRS interval is normal. QT interval is normal. No Q waves. T waves are Normal. Clinical impression: 1st degree heart block and No evidence of ischemia. Interpreted by me. Reviewed by me. Administered Medications: 15:25 Drug: NS 0.9% IV 1000 ml IV at 1 bolus Per protocol; 1000 mL bolus Route: IV; Rate: 1 kc6 bolus; Site: right forearm; 16:30 Follow up: Response: No adverse reaction; IV Status: Completed infusion; IV Intake: kc6 1000ml 15:25 Drug: fentaNYL (PF) IVP 25 mcg IVP once Route: IVP; Site: right forearm; kc6 16:30 Follow up: Response: No adverse reaction; Pain is unchanged, physician notified; RASS: kc6 Alert and Calm (0) 15:25 Drug: Ondansetron IVP 4 mg IVP once; over 2 minutes Route: IVP; Site: right forearm; kc6 16:30 Follow up: Response: No adverse reaction kc6 17:00 Drug: Rocephin IV 1 grams IV at per protocol once; Given slow IV push per pharmacy db instructions Route: IV; Rate: per protocol; Site: right antecubital; 17:02 Drug: Famotidine IVP 20 mg IVP once; dilute with 10 mL 0.9% NaCl; give over 2 minutes db Route: IVP; Site: right antecubital; 19:00 Follow up: Response: No adverse reaction vc1 17:05 Drug: Clopidogrel PO 75 mg PO once Route: PO; db 19:00 Follow up: Response: No adverse reaction vc1 17:08 Drug: Zithromax IVPB 500 mg IVPB once over 1 hrs; mix in 250 mL NS Route: IVPB; Infused db Over: 1 hrs; Site: right antecubital; Disposition Summary: 03/12/23 17:16 Hospitalization Ordered Notes: Hospitalization Status: Inpatient Admission nicolette Provider: Sena Osuna nicolette Condition: Stable nicolette Problem: new nicolette Symptoms: have improved nicolette Bed/Room Type: Standard nicolette Location: [facility] ER HOLD(03/13/23 12:02) bd Room Assignment: ERHOLD-(03/13/23 12:02) bd Diagnosis - Fever, unspecified nicolette - Chest pain, unspecified nicolette - Weakness nicolette - Altered mental status, unspecified nicolette Forms: - Medication Reconciliation Form nicolette - SBAR form nicolette - Leadership Thank You Letter nicolette Signatures: Dispatcher [employer] Judy Drummond Corey, MD MD cha Gibson, Lacie, RN RN lg3 Alma Maurer RN RN kc6 Angelika Rosales RN RN db Anisha Cuba RN vc1 Corrections: (The following items were deleted from the chart) 03/13 01:54 03/12 17:16 Telemetry/MedSurg (Inpatient) nicolette lg3 03/13 01:54 03/12 17:16 nicolette lg3 03/13 08:32 01:54 [facility] ER HOLD lg3 bd 08:32 01:54 ERHOLD- lg3 bd 10:48 08:32 431 bd bd 12:02 08:32 Telemetry/MedSurg (Inpatient) bd bd 12:02 10:48 bd bd
[2023-03-12 17:27] LABS: Specific Gravity 1.014 (1.005-1.030); Urine Bacteria None Seen /HPF (<20); Urine Bilirubin NEGATIVE (Negative); Urine Blood Negative (Negative); Urine Clarity Clear (Clear); Urine Color Light-Yellow (Yellow); Urine Glucose NEGATIVE (Negative); Urine Mucus Slight /HPF (None Seen); Urine Protein NEGATIVE (Negative); Urine RBC <5 /HPF (None Seen); Urine Urobilinogen Normal (Normal)
[2023-03-12] MEDS ORDERED: ACETAMINOPHEN 500 MG TAB PO PRN (17:33)
--- NOTE | 2023-03-12 17:38 | P.HP ---
Certification for Inpatient Patient admitted to: Observation With expected LOS: <2 Midnights Practitioner: I am a practitioner with admitting privileges, knowledge of patient current condition, hospital course, and medical plan of care. Services: Services provided to patient in accordance with Admission requirements found in Title 42 Section 412.3 of the Code of Federal Regulations Patient History Date of Service: 03/12/23 Reason for admission: CP and headache History of Present Illness: Patient is a 72-year-old gentleman him to the hospital with pain to the top of his head. Pain was in the left frontal region and to the left side of the back of the head. Patient has Daryn is been going on for last 24 hours. Patient also reports of chest discomfort. Patient's pain is mainly in the sternal region. Patient decided to come into the hospital for further evaluation. In the emergency room patient looks to be fairly stable. Patient will be admitted for further evaluation. Allergies Penicillins Allergy (Severe, Verified 11/25/16 22:08) Anaphylaxis aspirin Adverse Reaction (Mild, Verified 11/25/16 22:08) Itching Home Medications: levETIRAcetam [Keppra*] 1,000 mg PO BID 11/27/15 Gabapentin 1 tab PO BID 09/22/20 Oxycodone HCl 1 tab PO QID PRN 09/22/20 - Past Medical/Surgical History Diabetic: No -: Previous CVA -: Previous TIA -: Seizure disorder -: Hyperlipidemia -: Chronic headaches -: Chronic back pain, DDD/DJD of the spine, 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 Mother Medical History: Diabetes - Social History Alcohol use: No CD- Drugs: No Caffeine use: Yes Review of Systems 10-point ROS is otherwise unremarkable Physical Examination - Vital Signs Temperature: 8 F Blood Pressure: 140/80 Pulse: 80 Respirations: 18 Pulse Ox (%): 98 - Physical Exam General: Alert, In no apparent distress, Oriented x3 HEENT: Atraumatic, PERRLA, Mucous membr. moist/pink, EOMI, Sclerae nonicteric Neck: Supple, 2+ carotid pulse no bruit, No LAD, Without JVD or thyroid abnormality Respiratory: Clear to auscultation bilaterally, Normal air movement Cardiovascular: Regular rate/rhythm, Normal S1 S2 Gastrointestinal: Normal bowel sounds, No tenderness Musculoskeletal: No tenderness Integumentary: No rashes Neurological: Normal gait, Normal speech, Normal strength at 5/5 x4 extr, Normal tone, Normal affect Lymphatics: No axilla or inguinal lymphadenopathy - Studies Laboratory Data (last 24 hrs) 03/12/23 03/12/23 03/12/23 15:21 15:21 15:21 WBC 6.60 Hgb 13.0 L Hct 39.7 Plt Count 342 PT 11.8 INR 1.07 Sodium 141 Potassium 4.1 BUN 11 Creatinine 0.71 Glucose 96 Magnesium 2.5 H Total Bilirubin 0.2 AST 8 L ALT 12 L Alkaline Phosphatase 73 Lipase 46 Assessment & Plan - Problems (Diagnosis) (1) Chest pain, rule out acute myocardial infarction Status: Acute (2) Coronary artery disease involving coronary bypass graft Status: Acute (3) History of CVA (cerebrovascular accident) Status: Acute (4) CAD (coronary artery disease) Onset Date: 05/06/17 Status: Chronic Qualifiers: (5) COPD (chronic obstructive pulmonary disease) Onset Date: 08/09/16 Status: Chronic Qualifiers: (6) History of CVA (cerebrovascular accident) Status: Chronic (7) History of pulmonary embolism Status: Chronic (8) Hyperlipidemia Status: Chronic Qualifiers: - Plan 1. Serial troponins and EKG 2. Appreciate Cardiology consultation 3. Echocardiogram and stress test if cardiology is agreeable 4. Anti-platelet therapy, anti coagulation, beta-maryann, statin, and O2 as needed 5. IV morphine for pain 6. Nitro p.r.n. Discharge Plan: Home Plan to discharge in: Greater than 2 days - Advance Directives Does patient have a Living Will: No Does patient have a Durable POA for Healthcare: No - Code Status/Comfort Care Code Status Assessed: Yes Code Status: Full Code Critical Care: No Time Spent Managing PTS Care (In Minutes): 35
[2023-03-12] MEDS ORDERED: NITROGLYCERIN 1 GM PKT TD ONE ×2 (17:53→19:09)
[2023-03-12] MEDS ORDERED: MORPHINE 2 MG/ML SYR IV PRN ×2 (18:00→21:15)
[2023-03-12 21:02] LABS: Anisocytosis 2+; Blood Morphology Comment NOTED (NOT SEEN); Platelet Estimate ADEQ; White Blood Cell Scan OK (OK)
[2023-03-13] MEDS: METOPROLOL TAR 25 MG TAB PO SCH ×2 (01:50→08:49)
[2023-03-13] MEDS: ENOXAPARIN 40 MG/0.4 ML SQ SCH ×2 (01:53→08:49)
[2023-03-13] MEDS: ALPRAZOLAM 0.25 MG TABLET PO PRN ×2 (01:53→07:24)
[2023-03-13] MEDS ORDERED: ALPRAZOLAM 0.25 MG TABLET ONE ×2 (01:58→07:34)
[2023-03-13] MEDS ORDERED: ENOXAPARIN 40 MG/0.4 ML SQ ONE ×2 (01:59→07:58)
[2023-03-13] MEDS ORDERED: METOPROLOL TAR 25 MG TAB ONE ×2 (01:59→07:58)
[2023-03-13] MEDS ORDERED: HYDROMORPHONE HCL 1 MG/ML INJ IV ONE (02:55)
[2023-03-13] MEDS ORDERED: HYDROMORPHONE HCL 0.5 MG/0.5 ML INJ ONE (03:16)
[2023-03-13 03:28] VITALS: BMI 24.3
[2023-03-13 06:17] LABS: Absolute Lymphocytes (CBC) 2.4 K/uL (0.7-4.9); Hematocrit 40.9 % (39.6-49.0); Lymphocytes % 28.7 % (15.3-44.8); MCV 81.2 fL (80-100); MPV 8.2 fL (7.6-11.3); Platelets 330 thou/uL (152-406); RBC Red Blood Cell Count 5.04 M/uL (4.33-5.43)
[2023-03-13 06:32] LABS: Potassium 4.2 mEq/L (3.5-5.1)
[2023-03-13 06:36] LABS: Troponin High Sensitivity 18.5 pg/mL (<58.9)
[2023-03-13] MEDS ORDERED: REGADENOSON 0.4 MG/5 ML SYR IV ONE (07:41)
[2023-03-13] MEDS ORDERED: LORazepam 2 MG/ML VIAL ONE (08:54)
[2023-03-13] MEDS ORDERED: ASPIRIN EC 81 MG TAB PO SCH (09:00)
[2023-03-13] MEDS ORDERED: LORazepam 2 MG/ML VIAL IV ONE (09:00)
[2023-03-13 12:54] VITALS: O2SAT 97
--- NOTE | 2023-03-14 15:21 | EKG ---
Test Date: 2023-03-12 Test Time: 14:41:08 Knot Tier: LOY MEASUREMENT RESULTS: Intervals: Rate: 77 TX: 248 QRSD: 96 QT: 388 QTc: 439 [place]: P: 85 TX: 248 QRS: -27 T: -38 INTERPRETIVE STATEMENTS: Sinus rhythm with 1st degree AV block Otherwise normal ECG Compared to ECG 11/09/2022 19:02:00 Left-axis deviation no longer present Electronically Signed On 03-14-23 15:13:31 AIRCRE[employer]MAN by Margarito Hidalgo
[2023-03-31 05:43] VITALS: BP 140/80; TEMP 8
--- NOTE | 2023-03-31 05:45 | P.DS ---
Discharge Date: 03/13/23 Disposition: ROUTINE DISCHARGE Discharge Condition: GOOD Reason for Admission: CP and headache - Problems (1) Chest pain, rule out acute myocardial infarction Status: Acute (2) Coronary artery disease involving coronary bypass graft Status: Acute (3) History of CVA (cerebrovascular accident) Status: Acute (4) CAD (coronary artery disease) Onset Date: 05/06/17 Status: Chronic Qualifiers: (5) COPD (chronic obstructive pulmonary disease) Onset Date: 08/09/16 Status: Chronic Qualifiers: (6) History of CVA (cerebrovascular accident) Status: Chronic (7) History of pulmonary embolism Status: Chronic (8) Hyperlipidemia Status: Chronic Qualifiers: Brief History of Present Illness: Patient is a 72-year-old gentleman him to the hospital with pain to the top of his head. Pain was in the left frontal region and to the left side of the back of the head. Patient has Daryn is been going on for last 24 hours. Patient also reports of chest discomfort. Patient's pain is mainly in the sternal region. Patient decided to come into the hospital for further evaluation. In the emergency room patient looks to be fairly stable. Patient will be admitted for further evaluation. Hospital Course: Patient has done well during hospital stay. Clinically, patient is much better. At this time, patient is stable for discharge home. Patient will follow-up with Cardiology and PCP as an outpatient. Vital Signs/Physical Exam: Temp Pulse Resp BP Pulse Ox 8 F L 80 18 140/80 98 03/31/23 05:43 03/31/23 05:43 03/31/23 05:43 03/31/23 05:43 03/31/23 05:43 General: Alert, In no apparent distress, Oriented x3 Laboratory Data at Discharge: WBC 8.20 thou/uL (4.3-10.9) 03/13/23 06:07 Hgb 13.3 g/dL (13.6-17.9) L 03/13/23 06:07 Hct 40.9 % (39.6-49.0) 03/13/23 06:07 Plt Count 330 thou/uL (152-406) 03/13/23 06:07 PT 11.8 SECONDS (9.5-12.5) 03/12/23 15:21 INR 1.07 03/12/23 15:21 Sodium 139 mEq/L (136-145) 03/13/23 06:07 Potassium 4.2 mEq/L (3.5-5.1) 03/13/23 06:07 BUN 8 mg/dL (7-18) 03/13/23 06:07 Creatinine 0.72 mg/dL (0.70-1.30) 03/13/23 06:07 Glucose 88 mg/dL (74-106) 03/13/23 06:07 Magnesium 2.5 mg/dL (1.6-2.4) H 03/12/23 15:21 Total Bilirubin 0.2 mg/dL (0.2-1.0) 03/12/23 15:21 AST 8 U/L (15-37) L 03/12/23 15:21 ALT 12 U/L (16-61) L 03/12/23 15:21 Alkaline Phosphatase 73 U/L (45-117) 03/12/23 15:21 Triglycerides 91 mg/dL (<150) 03/13/23 06:07 Cholesterol 169 mg/dL (<200) 03/13/23 06:07 HDL Cholesterol 43 mg/dL (40-60) 03/13/23 06:07 Cholesterol/HDL Ratio 3.93 03/13/23 06:07 Lipase 46 U/L (13-75) 03/12/23 15:21 Home Medications: levETIRAcetam [Keppra*] 1,000 mg PO BID 11/27/15 Gabapentin 1 tab PO BID 09/22/20 Oxycodone HCl 1 tab PO QID PRN 09/22/20 Physician Discharge Instructions: -DC IV and DC home -Follow-up with PCP in 1 to 2 weeks -Follow-up with Cardiology in 1 week -Please call Dr. Osuna at [phone] if any questions regarding hospital stay -Please call nursing station at [phone] if any nursing or medication questions -Return to the emergency room if symptoms worsen you will Diet: AHA Activity: Fall precautions Followup: NONE,NONE [Primary Care Provider] - Time spent managing pt's care (in minutes): 35
== END 2023-03-13 12:09 | disposition home or self-care (01) ==
LOC: ER 14:24 → ERHOLD 18:06 → 4TH 03-13 08:42
PROVIDERS: ADMIT Hospitalist; ATTEND Hospitalist
DX: R07.9 Chest pain, unspecified (principal); I25.10 Atherosclerotic heart disease of native coronary artery without angina pectoris; J44.9 Chronic obstructive pulmonary disease, unspecified; E78.5 Hyperlipidemia, unspecified; F17.210 Nicotine dependence, cigarettes, uncomplicated; Z86.73 Personal history of transient ischemic attack (TIA), and cerebral infarction without residual deficits; Z86.711 Personal history of pulmonary embolism; Z95.1 Presence of aortocoronary bypass graft; Z88.0 Allergy status to penicillin; Z88.6 Allergy status to analgesic agent; Z11.52 Encounter for screening for COVID-19
CPT/HCPCS: 93005; 87040 ×2; 85025 ×2; 81001; 80048 ×2; 36415; 83735; 85610; 80061; 80076; 83605 ×2; 84484 ×3; 83690; 83880; 87804 ×2; 70450; 71045; 99285; 87811; J1650 ×2; J3010; J2270; J1170; J2405; J7050; J7030; J0696; G0378 ×4; J2785

== ENCOUNTER → 2023-05-13 | Emergency (ER) | payer OTHER ==
--- NOTE | 2023-05-13 15:53 | EDPHYS ---
Physician Documentation [facility] Name: Bryan Graf Age: 72 yrs Sex: Male : 1950 Arrival Date: 05/13/2023 Time: 15:28 Bed IW6 Private MD: ED Physician Tyler Mtz HPI: 05/13 17:42 This 72 yrs old Male presents to ER via Wheelchair with complaints of Foot Pain - Both. rt 17:42 Patient presents to the ED with pain to the toes at the toenails. He states that they rt are overgrown, is requesting that we cut his toenails. Denies other acute complaints at this time. He does have an appoint with his perch mender next week. Symptoms are mild in severity, no other aggravating elevating factors.. Historical: - Allergies: 15:41 Aspirin; tl4 15:41 PENICILLINS; tl4 - Home Meds: 15:44 Keppra 1,000 mg oral tablet 1 tab 2 times per day [Active]; tl4 - PMHx: 15:41 Chronic pain; COPD; CVA; Hypertension; Migraine; Pneumonia; Seizures; swelling and pain tl4 to L lower leg; - PSHx: 15:41 back surgery; heart surgery; Right hip surgery; tl4 - Immunization history:: Adult Immunizations unknown. - Social history:: Smoking status: Patient reports the use of cigarette tobacco products, smokes one pack cigarettes per day. ROS: 17:42 Constitutional: Negative for fever, chills, and weight loss, Skin: Negative for injury, rt rash, and discoloration, Neuro: Negative for headache, weakness, numbness, tingling, and seizure, Psych: Negative for depression, anxiety, suicide ideation, homicidal ideation, and hallucinations, 17:42 MS/extremity: Positive for Pain to toes, Exam: 17:42 Constitutional: This is a well developed, well nourished patient who is awake, alert, rt and in no acute distress. Chest/axilla: Normal chest wall appearance and motion. Nontender with no deformity. No lesions are appreciated. Cardiovascular: Regular rate and rhythm with a normal S1 and S2. No gallops, murmurs, or rubs. Normal PMI, no JVD. No pulse deficits. Respiratory: Lungs have equal breath sounds bilaterally, clear to auscultation and percussion. No rales, rhonchi or wheezes noted. No increased work of breathing, no retractions or nasal flaring. Abdomen/GI: Soft, non-tender, with normal bowel sounds. No distension or tympany. No guarding or rebound. No evidence of tenderness throughout. 17:42 Musculoskeletal/extremity: Toenails are elongated, there is no signs of infection, no ingrown toenail. Pulses, motor, sensation intact. Vital Signs: 15:39 BP 130 / 78; Pulse 98; Resp 18; Temp 97.9(O); Pulse Ox 100% ; Weight 72.57 kg; Height 5 tl4 ft. 8 in. ; Pain 10/10; 16:00 BP 127 / 69; Pulse 96; Resp 16; Pulse Ox 98% on R/A; tl4 15:39 Body Mass Index 24.33 (72.57 kg, 172.72 cm) tl4 15:39 Pain Scale: Adult tl4 MDM: 15:39 Patient medically screened. rt 17:42 Differential diagnosis: Ingrown toenail, no emergent condition. Data reviewed: vital rt signs, nurses notes. ED course: Patient has no signs or symptoms to suggest cellulitis, ingrown toenail. He is requesting that his toenails be cut in the emergency department. He does have an appoint with the perch mender, I did call the perch mender office, they will call him to arrange for closer follow-up. I informed the patient that toenail clipping is not emergent procedure, he is instructed to follow-up as an outpatient.. Administered Medications: No medications were administered Disposition Summary: 05/13/23 15:53 Discharge Ordered Notes: Location: Home rt Problem: new rt Symptoms: are unchanged rt Condition: Stable rt Diagnosis - Bilateral foot pain rt Followup: rt - With: Private Physician - When: 2 - 3 days - Reason: Discharge Instructions: - Discharge Summary Sheet rt - Foot Pain rt Forms: - Medication Reconciliation Form rt - Thank You Letter rt - Antibiotic Education rt - Prescription Opioid Use rt - Patient Portal Instructions rt - Leadership Thank You Letter rt Signatures: Tyler Mtz MD MD rt LogdaEduardo sanchez 4
--- NOTE | 2023-05-13 15:53 | ER ---
Nurse's Notes [facility] Name: Bryan Graf Age: 72 yrs Sex: Male : 1950 Arrival Date: 05/13/2023 Time: 15:28 Bed IW6 Private MD: Diagnosis: Bilateral foot pain Presentation: 05/13 15:39 Chief complaint: Patient states: Pt c/o bilateral foot pain for over 1 week. Pt states tl4 his toenails are growing sideways and cutting into his other toes. Pt states he has an appt for the director treasurer next week. Coronavirus screen: Vaccine status: Patient reports being unvaccinated. At this time, the client does not indicate any symptoms associated with coronavirus-19. Ebola Screen: Patient negative for fever greater than or equal to 101.5 degrees Fahrenheit, and additional compatible Ebola Virus Disease symptoms Patient denies exposure to infectious person. Patient denies travel to an Ebola-affected area in the 21 days before illness onset. No symptoms or risks identified at this time. Initial Sepsis Screen: Does the patient meet any 2 criteria? No. Patient's initial sepsis screen is negative. Does the patient have a suspected source of infection? No. Patient's initial sepsis screen is negative. Risk Assessment: Do you want to hurt yourself or someone else? Patient reports no desire to harm self or others. Onset of symptoms was May 06, 2023. 15:39 Method Of Arrival: Wheelchair tl4 15:39 Acuity: GELACIO 4 tl4 Triage Assessment: 15:41 General: Appears uncomfortable, Behavior is calm, cooperative. Pain: Complains of pain tl4 in right foot and left foot. EENT: No deficits noted. No signs and/or symptoms were reported regarding the EENT system. Neuro: No deficits noted. Cardiovascular: No deficits noted. Cardiovascular: Denies chest pain, fatigue, lightheadedness, palpitations. Respiratory: No deficits noted. Denies cough, shortness of breath. GI: No deficits noted. No signs and/or symptoms were reported involving the gastrointestinal system. : No deficits noted. No signs and/or symptoms were reported regarding the genitourinary system. Derm: No deficits noted. No signs and/or symptoms reported regarding the dermatologic system. Historical: - Allergies: 15:41 Aspirin; tl4 15:41 PENICILLINS; tl4 - Home Meds: 15:44 Keppra 1,000 mg oral tablet 1 tab 2 times per day [Active]; tl4 - PMHx: 15:41 Chronic pain; COPD; CVA; Hypertension; Migraine; Pneumonia; Seizures; swelling and pain tl4 to L lower leg; - PSHx: 15:41 back surgery; heart surgery; Right hip surgery; tl4 - Immunization history:: Adult Immunizations unknown. - Social history:: Smoking status: Patient reports the use of cigarette tobacco products, smokes one pack cigarettes per day. Screenin:43 [facility] ED Fall Risk Assessment (Adult) History of falling in the last 3 months, tl4 including since admission No falls in past 3 months (0 pts) Confusion or Disorientation No (0 pts) Intoxicated or Sedated No (0 pts) Impaired Gait Yes (1 pt) Mobility Assist Device Used No (0 pt) Altered Elimination No (0 pt) Score/Fall Risk Level 0 - 2 = Low Risk Oriented to surroundings, Maintained a safe environment, Educated pt \T\ family on fall prevention, incl call for assistance when getting out of bed, Assessed \T\ reinforced patient's understanding of fall precautions, Provided non-skid footwear, Hourly rounding (assess needs \T\ fall precautionary measures) done, Used ambulatory aids as needed (educated on \T\ assisted with), Used gait belt as appropriate. Abuse screen: Denies threats or abuse. Denies injuries from another. Nutritional screening: No deficits noted. Tuberculosis screening: No symptoms or risk factors identified. Assessment: 16:00 Reassessment: No changes from previously documented assessment. Patient and/or family tl4 updated on plan of care and expected duration. Pain level reassessed. Patient is alert, oriented x 3, equal unlabored respirations, skin warm/dry/pink. Vital Signs: 15:39 BP 130 / 78; Pulse 98; Resp 18; Temp 97.9(O); Pulse Ox 100% ; Weight 72.57 kg; Height 5 tl4 ft. 8 in. ; Pain 10/10; 16:00 BP 127 / 69; Pulse 96; Resp 16; Pulse Ox 98% on R/A; tl4 15:39 Body Mass Index 24.33 (72.57 kg, 172.72 cm) tl4 15:39 Pain Scale: Adult tl4 ED Course: 15:31 Patient arrived in ED. im 15:37 Tyler Mtz MD is Attending Physician. rt 15:41 Triage completed. tl4 15:42 Arm band placed on right wrist. tl4 15:44 Patient has correct armband on for positive identification. Provided Education on: ed tl4 process. 15:44 No provider procedures requiring assistance completed. Patient did not have IV access tl4 during this emergency room visit. Administered Medications: No medications were administered Medication: 15:43 VIS not applicable for this client. tl4 Outcome: 15:53 Discharge ordered by . rt 16:01 Discharged to home via wheelchair, with family, tl4 16:01 Condition: stable 16:01 Discharge instructions given to patient, Instructed on discharge instructions, follow up and referral plans. Demonstrated understanding of instructions, follow-up care, 16:01 Patient left the ED. tl4 Signatures: Tyler Mtz MD MD rt Esthela Haque im Eduardo Zamora tl4
[2023-05-13 17:30] VITALS: BP 127/69; TEMP 97.9; O2SAT 98
== END ==
LOC: ER 15:28
DX: M79.672 Pain in left foot (principal); M79.671 Pain in right foot; F17.210 Nicotine dependence, cigarettes, uncomplicated; Z88.0 Allergy status to penicillin; Z88.6 Allergy status to analgesic agent

== ENCOUNTER → 2023-05-15 | Emergency (ER) | payer OTHER ==
[~2023-05-15] MED LIST: ACETAMINOPHEN 500 MG TAB ONE; ALBUTEROL 2.5 MG/3 ML NEB SOL ONE; CEFTRIAXONE 1000 MG/VIAL ONE; DIAZEPAM 10 MG/2 ML INJ SYRINGE ONE; IPRATROPIUM BROM 0.5MG/2.5ML ONE; LEVETIRACETAM 500 MG/5 ML VIAL IV ONE; METHYLPREDNISOLONE 125 MG INJ ONE; NA CHLORIDE 0.9% 1,000 ML ONE; NA CHLORIDE 0.9% 500 ML ONE; ONDANSETRON 4 MG/2 ML VIAL ONE
[2023-05-16 00:10] LABS: Absolute Lymphocytes (CBC) 2.3 K/uL (0.7-4.9); Hematocrit 33.5 % (39.6-49.0); Lymphocytes % 30.6 % (15.3-44.8); MCV 81.8 fL (80-100); MPV 8.9 fL (7.6-11.3); Platelets 202 thou/uL (152-406); RBC Red Blood Cell Count 4.09 M/uL (4.33-5.43)
[2023-05-16 00:16] LABS: Protime INR 1.05
[2023-05-16 00:29] LABS: ALT/SGPT 12 U/L (16-61); AST/SGOT 10 U/L (15-37); Albumin 2.9 g/dL (3.4-5.0); Alkaline Phosphatase 73 U/L (45-117); BUN Blood Urea Nitrogen 14 mg/dL (7-18); Bicarbonate 29 mEq/L (21-32); Bilirubin Total 0.2 mg/dL (0.2-1.0); Glomerular Filtration Rate 90 ml/min (=/>90); Glucose Level 84 mg/dL (74-106); Potassium 4.2 mEq/L (3.5-5.1); Protein, Total 6.8 g/dL (6.4-8.2); Sodium Level 141 mEq/L (136-145); Thyroid Stimulating Hormone 0.738 uIU/mL (0.358-3.740)
[2023-05-16 00:30] LABS: C-Reactive Protein < 2.90 mg/L (<3.00)
[2023-05-16 01:02] LABS: Anisocytosis 1+; Blood Morphology Comment NOTED (NOT SEEN); Platelet Estimate ADEQ; White Blood Cell Scan OK (OK)
[2023-05-16 01:19] LABS: Arterial Blood Carboxyhemoglob 4.5 % (0-1.5); Blood O2 Saturation 94.8 % (92-98.5)
--- NOTE | 2023-05-16 02:58 | ER ---
Nurse's Notes [facility] Name: Bryan Graf Age: 72 yrs Sex: Male : 1950 Arrival Date: 05/15/2023 Time: 23:37 Bed IW10 Private MD: Diagnosis: Other seizures;Recurrent seizures, post ictal status , Presentation: 05/15 23:41 Chief complaint: EMS states: patient found on the recliner, post ictal, with history of rv seizure, compliant with medications, complaining of left sided chest pain. denies injury. bgl at scene is 95. Coronavirus screen: At this time, the client does not indicate any symptoms associated with coronavirus-19. Ebola Screen: No symptoms or risks identified at this time. Initial Sepsis Screen: Does the patient meet any 2 criteria? No. Patient's initial sepsis screen is negative. Does the patient have a suspected source of infection? No. Patient's initial sepsis screen is negative. Risk Assessment: Do you want to hurt yourself or someone else? Patient reports no desire to harm self or others. Onset of symptoms was May 15, 2023. 23:41 Method Of Arrival: EMS: [facility] 23:41 Acuity: GELACIO 2 rv 05/16 00:03 Chief complaint: [phone] / [phone] emergency contacts. rv Triage Assessment: 05/15 23:45 General: Appears comfortable, Behavior is calm, cooperative. Pain: Complains of pain in rv chest. Neuro: Level of Consciousness is awake, alert, obeys commands, Oriented to person, place. Cardiovascular: Capillary refill < 3 seconds Patient's skin is warm and dry. Cardiovascular: Reports chest pain. Respiratory: Airway is patent Respiratory effort is even, unlabored. GI: No signs and/or symptoms were reported involving the gastrointestinal system. : No signs and/or symptoms were reported regarding the genitourinary system. Derm: Skin is intact. Historical: - Allergies: 23:43 Aspirin; rv 23:43 PENICILLINS; rv - Home Meds: 23:43 Keppra 1 Oral tablet 1 tab 2 times per day [Active]; rv - PMHx: 23:43 Chronic pain; COPD; CVA; Hypertension; Migraine; Pneumonia; Seizures; swelling and pain rv to L lower leg; - PSHx: 23:43 back surgery; heart surgery; Right hip surgery; rv - Immunization history:: Adult Immunizations up to date. - Social history:: Smoking status: Patient denies any tobacco usage or history of. - Family history:: not pertinent. Screenin:46 [facility] ED Fall Risk Assessment (Adult) History of falling in the last 3 months, rv including since admission Yes- fall prone (multiple falls) (3 pts) Score/Fall Risk Level 3 or more points = High Risk Oriented to surroundings, Maintained a safe environment, Educated pt \T\ family on fall prevention, incl call for assistance when getting out of bed, Assessed \T\ reinforced patient's understanding of fall precautions, Provided non-skid footwear. Abuse screen: Denies threats or abuse. Denies injuries from another. Nutritional screening: No deficits noted. Tuberculosis screening: No symptoms or risk factors identified. Assessment: 23:39 Reassessment: see triage assessment. 1 05/16 01:30 Reassessment: Patient appears in no apparent distress at this time. No changes from [facility] previously documented assessment. Patient and/or family updated on plan of care and expected duration. Pain level reassessed. 02:34 General: [facility] ([facility] [phone]. [facility] 02:39 Reassessment: Patient appears in no apparent distress at this time. No changes from [facility] previously documented assessment. Patient and/or family updated on plan of care and expected duration. Pain level reassessed. 03:22 General: Discharge pending family arrival. [facility] 03:47 Reassessment: Patient appears in no apparent distress at this time. No changes from [facility] previously documented assessment. Patient and/or family updated on plan of care and expected duration. Pain level reassessed. Patient is alert, oriented x 3, equal unlabored respirations, skin warm/dry/pink. Vital Signs: 05/15 23:41 BP 130 / 68; Pulse 72; Resp 17; Temp 98.7; Pulse Ox 96% ; Weight 69 kg; rv 05/16 00:46 BP 144 / 57; Pulse 74; Resp 18; Pulse Ox 98% on R/A; rv 01:30 BP 134 / 67; Pulse 89; Resp 17 S; Pulse Ox 95% on R/A; jw7 02:37 BP 139 / 78; Pulse 80; Resp 18 S; Pulse Ox 94% on R/A; jw7 03:30 BP 143 / 71; Pulse 82; Resp 16 S; Pulse Ox 94% on R/A; jw7 Valera Coma Score: 05/15 23:59 Eye Response: to voice(3). Motor Response: obeys commands(6). Verbal Response: sp4 incomprehensible(2). Total: 11. ED Course: 23:39 Patient arrived in ED. wm 23:41 Jesse Ta RN is Primary Nurse. rv 23:41 Wild Coulter MD is Attending Physician. sp4 23:43 Triage completed. rv 23:45 Arm band placed on right wrist. rv 23:46 Patient has correct armband on for positive identification. Client placed on continuous rv cardiac and pulse oximetry monitoring. NIBP monitoring applied. night monitor on. 23:46 No provider procedures requiring assistance completed. Maintain EMS IV. Dressing rv intact. Good blood return noted. Site clean \T\ dry. Gauge \T\ site: 18 right Forearm. 23:52 Radiology exam delayed due to lab results not completed at this time. (BUN/Creatinine) eh4 IV insertion attempt and/or patient not having appropriate IV at this time. 23:58 Chest Single View XRAY In Process Unspecified. EDMS 02 00:06 Inserted saline lock: 20 gauge in left antecubital area, using aseptic technique. Blood rv collected. 01:18 CT Traumagram (Head C Spine CAP W Con) In Process Unspecified. EDMS 02:56 Carroll Jacobson MD is Referral Physician. sp4 03:48 Provided Education on: discharge instructions and medication usage. jw7 03:48 IV discontinued, intact, bleeding controlled, No redness/swelling at site. Pressure jw7 dressing applied. Administered Medications: 00:06 Drug: MethylPrednisoLONE IVP 125 mg IVP once Route: IVP; Site: right antecubital; rv 00:45 Follow up: Response: No adverse reaction rv 00:06 Drug: Albuterol Inhalation 2.5 mg Inhalation once Route: Inhalation; rv 00:45 Follow up: Response: No adverse reaction rv 00:06 Drug: Ipratropium Inhalation Aerosol 0.5 mg Inhalation once Route: Inhalation; rv 00:45 Follow up: Response: No adverse reaction rv 00:08 Drug: NS 0.9% IV 500 ml IV at bolus once Route: IV; Rate: bolus; Site: right rv antecubital; 00:44 Follow up: IV Status: Completed infusion; IV Intake: 500ml rv 00:08 Drug: NS 0.9% IV 1000 ml IV at 125 ml/hr continuous Route: IV; Rate: 125 ml/hr; Site: rv right antecubital; 00:44 Follow up: IV Status: Infusion continued rv 00:08 Drug: Ondansetron IVP 4 mg IVP once; over 2 minutes Route: IVP; Site: right antecubital;rv 00:45 Follow up: Response: No adverse reaction rv 00:08 Drug: Rocephin - Rocephin (cefTRIAXone) IVPB 1 grams IVPB once over 30 mins; (mix in 50 rv mL NS) Route: IVPB; Infused Over: 30 mins; Site: right antecubital; 00:45 Follow up: Response: No adverse reaction; IV Status: Completed infusion; IV Intake: rv 100ml 00:14 Drug: Keppra IV 1000 mg IV at calculated rate once Route: IV; Rate: calculated rate; rv Site: right antecubital; 00:45 Follow up: Response: No adverse reaction; IV Status: Completed infusion rv 00:44 Drug: Diazepam IVP 5 mg IVP once Route: IVP; Site: right forearm; rv 03:49 Follow up: Response: No adverse reaction jw7 01:21 Drug: Acetaminophen PO 1000 mg PO once Route: PO; rv 03:49 Follow up: Response: No adverse reaction; Marked relief of symptoms jw7 Medication: 05/15 23:46 VIS not applicable for this client. rv Point of Care Testing: Blood Glucose: 23:45 Blood Glucose: 85 mg/dL; rv Ranges: Intake: 05/16 00:44 IV: 500ml; Total: 500ml. rv 00:45 IV: 100ml; Total: 600ml. rv Outcome: 02:57 Discharge ordered by MD. nguyen 03:48 Discharged to home via wheelchair, jwMargaret 03:48 Condition: stable 03:48 Discharge instructions given to patient, family, Instructed on discharge instructions, follow up and referral plans. medication usage, Demonstrated understanding of instructions, follow-up care, medications, Prescriptions given X 1, 03:49 Patient left the ED. jw7 Signatures: Dispatcher [employer] EDMS Jesse Ta RN RN Halima Ruiz Jodi, RN RN jw7 Teresa Boles, JOSEPH RN 1 Darren Crum [facility] Wild Coulter MD MD sp4 Maggy Tabares Corrections: (The following items were deleted from the chart) 03:11 02:18 Initiated transfer to [facility] spoke with Halima restrepo vk 03: 02:21 Patient has been accepted to [facility] RM [address] Ramsay Per Halima restrepo vk 03:11 02:30 Pt has been accepted to transfer w/ [facility] ETA 0300 vk vk
--- NOTE | 2023-05-16 02:58 | EDPHYS ---
Physician Documentation [facility] Name: Bryan Graf Age: 72 yrs Sex: Male : 1950 Arrival Date: 05/15/2023 Time: 23:37 Bed [id number] Private MD: ED Physician Wild Coulter HPI: 05/15 23:53 This 72 yrs old Male presents to ER via EMS with complaints of seizure and sp4 AMS . 23:57 2-year-old male presents with EMS after he had a seizure at home and was found sp4 postictal by his family. Patient is well familiar to me from prior visits. Patient was last admitted 03/13/2023 for chest pain rule out ACS, history of coronary bypass graft, history of CVA, coronary artery disease, COPD, pulmonary embolism, hyperlipidemia. Patient has history of seizure disorder he takes Keppra 1000 mg twice a day. All medications include Keppra 1000 mg p.o. twice daily, gabapentin 1 tab p.o. twice daily, oxycodone 1 tab every 4 hours as needed. . Historical: - Allergies: 23:43 Aspirin; rv 23:43 PENICILLINS; rv - Home Meds: 23:43 Keppra 1 Oral tablet 1 tab 2 times per day [Active]; rv - PMHx: 23:43 Chronic pain; COPD; CVA; Hypertension; Migraine; Pneumonia; Seizures; swelling and pain rv to L lower leg; - PSHx: 23:43 back surgery; heart surgery; Right hip surgery; rv - Immunization history:: Adult Immunizations up to date. - Social history:: Smoking status: Patient denies any tobacco usage or history of. - Family history:: not pertinent. ROS: 23:59 Constitutional: Negative for fever, chills, and weight loss, positive seizure positive sp4 postictal altered mental status. ROS is not available. 23:59 All other systems are negative, Exam: 23:59 Constitutional: This is a well developed, well nourished patient who is awake, frail sp4 elderly male appears to have some lethargy, poorly arousable but responsive to basic commands. Nonverbal initially on arrival. Appears chronic smoker. Upper respiratory congestion and crackles on arrival Head/Face: Normocephalic, atraumatic. Eyes: Pupils equal round and reactive to light, extra-ocular motions intact. Lids and lashes normal. Conjunctiva and sclera are not injected. Cornea within normal limits. Periorbital areas with no swelling, redness, or edema. ENT: Nares patent. No nasal discharge, no septal abnormalities noted. Tympanic membranes are normal and external auditory canals are clear. Oropharynx with no redness, swelling, or masses, exudates, or evidence of obstruction, uvula midline. Mucous membranes moist. Poor dentition Neck: Trachea midline, no thyromegaly or masses palpated, and no cervical lymphadenopathy. Supple, full range of motion without nuchal rigidity, or vertebral point tenderness. Chest/axilla: Normal chest wall appearance and motion. Nontender with no deformity. No lesions are appreciated. Cardiovascular: Regular rate and rhythm with a normal S1 and S2. No gallops, murmurs, or rubs. Normal PMI, no JVD. No pulse deficits. Respiratory: Lungs have equal breath sounds bilaterally, clear to auscultation and percussion. No rales, rhonchi or wheezes noted. No increased work of breathing, no retractions or nasal flaring. Abdomen/GI: Soft, non-tender, with normal bowel sounds. No distension or tympany. No guarding or rebound. No evidence of tenderness throughout. Back: No spinal tenderness. No costovertebral tenderness. Male : Normal genitalia with no discharge or lesions. Uncircumcised male Skin: Warm, dry with normal turgor. Normal color with no rashes, no lesions, and no evidence of cellulitis. MS/ Extremity: Pulses equal, no cyanosis. Neurovascular intact. Full, normal range of motion. Neuro: Awake but has some degree of lethargy, grossly no lateralizing neurologic deficits, moves all extremities Sensory grossly intact. 23:59 ECG was reviewed by the Attending Physician. EKG at 23:35 normal sinus rhythm with sp4 first-degree AV block rate 73 beats per min 05/16 01:23 Abdomen/GI: Rectal exam: is unremarkable, NO Blood or melena on digital rectal exam. sp4 Vital Signs: 05/15 23:41 BP 130 / 68; Pulse 72; Resp 17; Temp 98.7; Pulse Ox 96% ; Weight 69 kg; rv 05/16 00:46 BP 144 / 57; Pulse 74; Resp 18; Pulse Ox 98% on R/A; rv 01:30 BP 134 / 67; Pulse 89; Resp 17 S; Pulse Ox 95% on R/A; jw7 02:37 BP 139 / 78; Pulse 80; Resp 18 S; Pulse Ox 94% on R/A; jw7 03:30 BP 143 / 71; Pulse 82; Resp 16 S; Pulse Ox 94% on R/A; jw7 Natalie Coma Score: 05/15 23:59 Eye Response: to voice(3). Motor Response: obeys commands(6). Verbal Response: sp4 incomprehensible(2). Total: 11. MDM: 23:49 Patient medically screened. sp4 05/16 01:03 ED course: CLINICAL HISTORY: CHEST PAIN. COMPARISON: None. TECHNIQUE: Single viewAP sp4 chest radiograph(s). FINDINGS: Slightly low lung volumes. No consolidation identified. No pleural effusion. No pneumothorax. Borderline cardiac size. Aortic knob calcific atherosclerosis. Median sternotomy wires. IMPRESSION: No acute cardiopulmonary abnormality identified by radiograph. . 02:54 ED course: CT today - IMPRESSION: Mild diffuse parenchymal volume loss with chronic sp4 small vessel ischemic change. No evidence for acute fracture or subluxation of the cervical spine. No evidence for acute traumatic injury within the chest, abdomen, or pelvis. Status post CABG. Minimal diverticulosis. Atherosclerotic disease of the aorta. . ED course: CT full report - Head, C spine, chest , abdomen , pelvis - FINDINGS: Brain: There is mild diffuse parenchymal volume loss. Scattered foci of subcortical and periventricular hypodense signal are noted consistent with chronic small vessel ischemic change. Parenchymal attenuation and morphology are otherwise normal. No acute hemorrhage. Mcnamara-white matter differentiation is maintained. No mass effect or midline shift. Ventricles/CSF spaces: Prominence of the ventricles and extra-axial CSF spaces secondary to volume loss. Orbits: Normal. Paranasal sinuses: There is minimal mucosal thickening inferior left maxillary sinus Mastoids/middle ears: Clear. Bones: Calvarium, skull base, and imaged facial bones are normal. Scalp/facial soft tissues: No acute scalp or soft tissue injury. CERVICAL SPINE: Alignment is anatomic. No acute fracture or subluxation. Vertebral body heights are preserved. There is degenerative disc disease at C2/C3, C3/C4 C4/C5 and minimally at C5/C6 there is moderate and C5/C6 spinal canal narrowing at C3/C4 Intraspinal contents appear grossly normal. No epidural hematoma. Cervical soft tissues are unremarkable. CHEST: Lower neck/chest wall: Visualized thyroid gland and soft tissues are normal. No adenopathy. Lungs and airways: The lung parenchyma demonstrate to be clear. Minimal dependent atelectatic changes lung bases. Mild elevation both hemidiaphragms. No evidence of airspace or interstitial process. No significant pulmonary nodules and/or masses identified. No focal areas of consolidation. Airways: The trachea mainstem bronchus demonstrate to be unremarkable. Pleural: There are no pleural effusion. No evidence for pneumothorax. Hemidiaphragms are normally positioned. Mediastinum and lymph nodes: No significant mediastinal and/or hilar lymphadenopathy. The axillary regions demonstrate to be clear. Heart: Normal heart size. No pericardial effusion. There are coronary artery calcifications. Thoracic aorta: There is minimal intimal aortic arch calcification with no evidence for aneurysm. There are sternotomy wires and pericardiac clips correspond to previous CABG. Pulmonary arteries: The central pulmonary arteries demonstrate to be within normal limits. No evidence for significant central filling defect to suggest pulmonary embolus. Osseous structures and chest wall: The visualized portions of the clavicles, bilateral humeral heads, scapulas, sternum, vertebral bodies of the thoracic spine, spinous processes and bilateral ribs demonstrate to be within normal limits. No evidence for acute bony injuries. No significant displaced fractures. ABDOMEN AND PELVIS: Liver: The liver demonstrates to be normal, no focal lesions identified. No solid organ injury. Gallbladder: The gallbladder is contracted most likely related to lack of fasting. No significant abnormalities identified. No biliary duct dilatation. Adrenal glands: The adrenal glands demonstrate to be normal. No solid organ injury. Pancreas: The pancreas demonstrate to be normal. No solid organ injury. Spleen: The spleen demonstrate to be within normal limits. No solid organ injury. Kidneys: The kidneys demonstrate normal uptake of contrast media. No evidence for nephrolithiasis and/or hydronephrosis. No evidence for sternal incision of contrast. GI: Grossly the unopacified stomach, small bowel and large bowel demonstrate to be within normal limits. No evidence for bowel dilatation and/or free air. The appendix was not visualized. The left-sided colon/sigmoid colon demonstrates presence of minimal diverticulosis. : The urinary bladder demonstrate to be unremarkable. Genitalia: The prostate gland is normal. Abdominal aorta: The aorta demonstrate demonstrated presence of atherosclerotic disease extending into the aortic bifurcation and iliac arteries. Retroperitoneum:There is no retroperitoneal lymphadenopathy. There is no evidence for ascites and/or abnormal fluid collections. Bones: The vertebral bodies of the lumbar spine demonstrate mild bony osteopenia. The spinous processes, transverse processes, sacrum, iliac bones, superior and inferior pubic gram as well as bilateral hip joints and visualized portions of the proximal femurs demonstrate to be within normal limits. No evidence for acute bony injuries. Incidentally is noted presence intervertebral disc cage fixation device at L4/L5. Soft tissues: The rest of the soft tissue and bony structures are within normal limits. . 02:56 Differential Diagnosis altered mental status, sepsis, flu, Seizure , recurrent . Data 4 reviewed: vital signs, nurses notes, EMS record, old medical records, lab test result(s), EKG, radiologic studies, CT scan, plain films. Consideration of Admission/Observation Escalation of care including admission/observation considered. 05/15 23:41 Order name: Blood Culture Adult (2) [facility] 05/15 23:41 Order name: CBC with Diff; Complete Time: 01:04 [facility] 05/15 23:41 Order name: CMP; Complete Time: 00:43 [facility] 05/15 23:41 Order name: Lactate w/ 2H reflex if indic.; Complete Time: 00:28 [facility] 05/15 23:41 Order name: Protime (+inr); Complete Time: 00:18 4 05/15 23:41 Order name: Ptt, Activated; Complete Time: 00:18 [facility] 05/15 23:41 Order name: Urinalysis w/ reflexes [facility] 05/15 23:41 Order name: ABG; Complete Time: 02:02 4 05/15 23:44 Order name: Procalcitonin; Complete Time: 01:01 [facility] 05/15 23:57 Order name: Glucose, Ancillary Testing; Complete Time: 00:18 [facility] 05/15 23:58 Order name: C-Reactive Protein; Complete Time: 00:43 [facility] 05/15 23:59 Order name: T4 Free; Complete Time: 00:43 [facility] 05/15 23:59 Order name: Thyroid Stimulating Hormone; Complete Time: 00:43 [facility] 05/16 00:14 Order name: CBC Smear Scan; Complete Time: 01:04 [facility] 05/15 23:41 Order name: Chest Single View XRAY sp4 /31 23:42 Order name: CT Traumagram (Head C Spine CAP W Con) [facility] 05/15 23:41 Order name: EKG; Complete Time: 23:42 05/15 23:41 Order name: Accucheck; Complete Time: 00:08 05/15 23:41 Order name: Cardiac monitoring; Complete Time: 00:08 4 05/15 23:41 Order name: Cath; Complete Time: 00:08 05/15 23:41 Order name: EKG - Nurse/Tech; Complete Time: 00:08 05/15 23:41 Order name: IV Saline Lock - Large Bore; Complete Time: 00:08 [facility] 05/15 23:41 Order name: Labs collected and sent; Complete Time: 00:08 05/15 23:41 Order name: O2 Per Protocol; Complete Time: 00:08 05/15 23:41 Order name: O2 Sat Monitoring; Complete Time: 00:08 05/15 23:41 Order name: Vital Signs; Complete Time: 00:08 EC/31 23:59 Rate is 73 beats/min. Rhythm is regular, Normal Sinus Rhythm. QRS [place] is Normal. MO sp4 interval is prolonged. QRS interval is normal. QT interval is normal. No Q waves. T waves are Normal. No ST changes noted. Clinical impression: No evidence of ischemia. Interpreted by me. Reviewed by me. Administered Medications: 05/16 00:06 Drug: MethylPrednisoLONE IVP 125 mg IVP once Route: IVP; Site: right antecubital; rv 00:45 Follow up: Response: No adverse reaction rv 00:06 Drug: Albuterol Inhalation 2.5 mg Inhalation once Route: Inhalation; rv 00:45 Follow up: Response: No adverse reaction rv 00:06 Drug: Ipratropium Inhalation Aerosol 0.5 mg Inhalation once Route: Inhalation; rv 00:45 Follow up: Response: No adverse reaction rv 00:08 Drug: NS 0.9% IV 500 ml IV at bolus once Route: IV; Rate: bolus; Site: right rv antecubital; 00:44 Follow up: IV Status: Completed infusion; IV Intake: 500ml rv 00:08 Drug: NS 0.9% IV 1000 ml IV at 125 ml/hr continuous Route: IV; Rate: 125 ml/hr; Site: rv right antecubital; 00:44 Follow up: IV Status: Infusion continued rv 00:08 Drug: Ondansetron IVP 4 mg IVP once; over 2 minutes Route: IVP; Site: right antecubital;rv 00:45 Follow up: Response: No adverse reaction rv 00:08 Drug: Rocephin - Rocephin (cefTRIAXone) IVPB 1 grams IVPB once over 30 mins; (mix in 50 rv mL NS) Route: IVPB; Infused Over: 30 mins; Site: right antecubital; 00:45 Follow up: Response: No adverse reaction; IV Status: Completed infusion; IV Intake: rv 100ml 00:14 Drug: Keppra IV 1000 mg IV at calculated rate once Route: IV; Rate: calculated rate; rv Site: right antecubital; 00:45 Follow up: Response: No adverse reaction; IV Status: Completed infusion rv 00:44 Drug: Diazepam IVP 5 mg IVP once Route: IVP; Site: right forearm; rv 03:49 Follow up: Response: No adverse reaction jw7 01:21 Drug: Acetaminophen PO 1000 mg PO once Route: PO; rv 03:49 Follow up: Response: No adverse reaction; Marked relief of symptoms jw7 Point of Care Testing: Blood Glucose: 05/15 23:45 Blood Glucose: 85 mg/dL; rv Ranges: Critical Glucose Levels:Adult <50 mg/dl or >400 mg/dl <40 mg/dl or >180 mg/dl Disposition Summary: 05/16/23 02:57 Discharge Ordered Notes: Location: Home sp4 Problem: new sp4 Symptoms: have improved sp4 Condition: Stable sp4 Diagnosis - Other seizures sp4 - Recurrent seizures, post ictal status , sp4 Followup: sp4 - With: Carroll Jacobson MD - When: 7 - 10 days - Reason: Recheck today's complaints Discharge Instructions: - Seizure, Adult sp4 - Discharge Summary Sheet vk Forms: - Patient Portal Instructions sp4 Prescriptions: - Keppra 1,000 mg Oral tablet - take 1 tablet ORAL route every 12 hours; 60 tablet; Refills: 0, Product sp4 Selection Permitted Signatures: Dispatcher [employer] Jesse Chahal RN RN rv Wild Coulter MD MD sp4 Dede Seay RN jw7 Corrections: (The following items were deleted from the chart) 23:44 THYROID STIMULAT HORMONE+C.LAB.BRZ ordered. EDMS EDMS 23:44 T4 FREE+C.LAB.BRZ ordered. EDMS EDMS 23:44 C-REACTIVE PROTEIN+C.LAB.BRZ ordered. EDMS EDMS
[2023-05-16 03:12] LABS: Urine Bilirubin NEGATIVE (Negative); Urine Blood Negative (Negative); Urine Clarity Clear (Clear); Urine Color Light-Yellow (Yellow); Urine Glucose NEGATIVE (Negative); Urine Protein NEGATIVE (Negative); Urine Urobilinogen Normal (Normal); Urine pH 8.5 (5.0-7.0)
[2023-05-16 03:13] LABS: Specific Gravity > 1.035 (1.005-1.030)
[2023-05-16 04:46] VITALS: BP 143/71; TEMP 98.7; O2SAT 94
--- NOTE | 2023-05-16 10:40 | RAD REPORT ---
EXAM DESCRIPTION: CT - Head C Spine Cap W Con - 05/16/2023 7:17 am CLINICAL HISTORY: 72 years, Male, probable seizure and fall at home COMPARISON: 03/12/2023 - CT head, 02/25/2020 - CT head, cspine, CAP TECHNIQUE: CT imaging of the head and cervical spine were performed without IV contrast. Subsequent 2-D multiplanar reformats were generated in the sagittal and coronal plane and reviewed. This exam was performed according to our departmental dose-optimization program which includes use of Automated Exposure Control, adjustment of the mA and/or kV according to patient size and/or use of i terative reconstruction technique. Contrast-enhanced images of the chest, abdomen and pelvis were performed utilizing 5 mm slice thickne ss at 5 mm interval reconstruction from the lung apices to the ischial tuberosities after the adminis tration of IV contrast. In addition multiplanar reformats in the coronal and sagittal plane were obtained and reviewed. An individualized dose optimization technique, Automated Exposure Control, was utilized for the perfo rmed procedure. FINDINGS: Brain: There is mild diffuse parenchymal volume loss. Scattered foci of subcortical and pe riventricular hypodense signal are noted consistent with chronic small vessel ischemic change. Parenc hymal attenuation and morphology are otherwise normal. No acute hemorrhage. Mcnamara-white matter differe ntiation is maintained. No mass effect or midline shift. Ventricles/CSF spaces: Prominence of the ventricles and extra-axial CSF spaces secondary to volume lo ss. Orbits: Normal. Paranasal sinuses: There is minimal mucosal thickening inferior left maxillary sinus Mastoids/middle ears: Clear. Bones: Calvarium, skull base, and imaged facial bones are normal. Scalp/facial soft tissues: No acute scalp or soft tissue injury. CERVICAL SPINE: Alignment is anatomic. No acute fracture or subluxation. Vertebral body heights are preserved. There is degenerative disc disease at C2/C3, C3/C4 C4/C5 and mi nimally at C5/C6 there is moderate and C5/C6 spinal canal narrowing at C3/C4 Intraspinal contents je ear grossly normal. No epidural hematoma. Cervical soft tissues are unremarkable. CHEST: Lower neck/chest wall: Visualized thyroid gland and soft tissues are normal. No adenopathy. Lungs and airways: The lung parenchyma demonstrate to be clear. Minimal dependent atelectatic changes lung bases. Mild elevation both hemidiaphragms. No evidence of airspace or interstitial process. No significant pulmonary nodules and/or masses identified. No focal areas of consolidation. Airways: The trachea mainstem bronchus demonstrate to be unremarkable. Pleural: There are no pleural effusion. No evidence for pneumothorax. Hemidiaphragms are normally pos itioned. Mediastinum and lymph nodes: No significant mediastinal and/or hilar lymphadenopathy. The axillary re gions demonstrate to be clear. Heart: Normal heart size. No pericardial effusion. There are coronary artery calcifications. Thoracic aorta: There is minimal intimal aortic arch calcification with no evidence for aneurysm. The re are sternotomy wires and pericardiac clips correspond to previous CABG. Pulmonary arteries: The central pulmonary arteries demonstrate to be within normal limits. No evidenc e for significant central filling defect to suggest pulmonary embolus. Osseous structures and chest wall: The visualized portions of the clavicles, bilateral humeral heads, scapulas, sternum, vertebral bodies of the thoracic spine, spinous processes and bilateral ribs demo nstrate to be within normal limits. No evidence for acute bony injuries. No significant displaced fra ctures. ABDOMEN AND PELVIS: Liver: The liver demonstrates to be normal, no focal lesions identified. No solid organ injury. Gallbladder: The gallbladder is contracted most likely related to lack of fasting. No significant abn ormalities identified. No biliary duct dilatation. Adrenal glands: The adrenal glands demonstrate to be normal. No solid organ injury. Pancreas: The pancreas demonstrate to be normal. No solid organ injury. Spleen: The spleen demonstrate to be within normal limits. No solid organ injury. Kidneys: The kidneys demonstrate normal uptake of contrast media. No evidence for nephrolithiasis a nd/or hydronephrosis. No evidence for sternal incision of contrast. GI: Grossly the unopacified stomach, small bowel and large bowel demonstrate to be within normal limi ts. No evidence for bowel dilatation and/or free air. The appendix was not visualized. The left-sided colon/sigmoid colon demonstrates presence of minimal diverticulosis. : The urinary bladder demonstrate to be unremarkable. Genitalia: The prostate gland is normal. Abdominal aorta: The aorta demonstrate demonstrated presence of atherosclerotic disease extending int o the aortic bifurcation and iliac arteries. Retroperitoneum: There is no retroperitoneal lymphadenopathy. There is no evidence for ascites and/or abnormal fluid collections. Bones: The vertebral bodies of the lumbar spine demonstrate mild bony osteopenia. The spinous process es, transverse processes, sacrum, iliac bones, superior and inferior pubic gram as well as bilateral hip joints and visualized portions of the proximal femurs demonstrate to be within normal limits. No evidence for acute bony injuries. Incidentally is noted presence intervertebral disc cage fixation device at L4/L5. Soft tissues: The rest of the soft tissue and bony structures are within normal limits. IMPRESSION: Mild diffuse parenchymal volume loss with chronic small vessel ischemic change. No evidence for acute fracture or subluxation of the cervical spine. No evidence for acute traumatic injury within the chest, abdomen, or pelvis. Status post CABG. Minimal diverticulosis. Atherosclerotic disease of the aorta. Electronically signed by: Colin Putnam MD 05/16/2023 02:03 AM ATG ARCHITECT Due to temporary technical issues with the PACS/Fluency reporting system, reports are being signed by the in house radiologist without review as a courtesy to ensure prompt reporting. The interpreting r adiologist is fully responsible for the content of the report.
--- NOTE | 2023-05-16 10:43 | RAD REPORT ---
EXAM DESCRIPTION: RAD - Chest Single View - 05/15/2023 11:56 pm CLINICAL HISTORY: CHEST PAIN. COMPARISON: None. TECHNIQUE: Single view AP chest radiograph(s). FINDINGS: Slightly low lung volumes. No consolidation identified. No pleural effusion. No pneumothor ax. Borderline cardiac size. Aortic knob calcific atherosclerosis. Median sternotomy wires. IMPRESSION: No acute cardiopulmonary abnormality identified by radiograph. Electronically signed by: Sania Sanabria MD 05/16/2023 12:16 AM HARDSCAPE FOREMAN Due to temporary technical issues with the PACS/Fluency reporting system, reports are being signed by the in house radiologist without review as a courtesy to ensure prompt reporting. The interpreting r adiologist is fully responsible for the content of the report.
--- NOTE | 2023-05-16 13:22 | EKG ---
Test Date: 2023-05-15 Test Time: 23:35:50 Video Producer: GIGI MEASUREMENT RESULTS: Intervals: Rate: 73 AL: 258 QRSD: 96 QT: 394 QTc: 434 [place]: P: 83 AL: 258 QRS: -8 T: 233 INTERPRETIVE STATEMENTS: Sinus rhythm with sinus arrhythmia with 1st degree AV block Nonspecific T wave abnormality Abnormal ECG Compared to ECG 03/12/2023 14:41:08 T-wave abnormality now present Electronically Signed On 05-16-23 13:21:14 PROJECT DESIGN ENGINEER by Margarito Hidalgo
== END ==
LOC: ER 23:37
DX: G40.909 Epilepsy, unspecified, not intractable, without status epilepticus (principal); I10 Essential (primary) hypertension; Z88.0 Allergy status to penicillin; Z88.6 Allergy status to analgesic agent; Z86.73 Personal history of transient ischemic attack (TIA), and cerebral infarction without residual deficits; Z95.1 Presence of aortocoronary bypass graft
CPT/HCPCS: 36415; 70450; 71045; 71260; 72125; 74177; 80053; 82947; 83605; 84145; 84439; 84443; 85610; 85730; 86140; 93005; J0696; J2405; J2930; J7030; J7040; J7613; J7644; Q9967

== ENCOUNTER 2023-08-03 19:38 | Emergency (ER) | payer OTHER ==
[2023-08-03] MEDS ORDERED: MORPHINE 4 MG/ML SYR ONE ×2 (20:01→22:26)
[2023-08-03] MEDS ORDERED: FAMOTIDINE 20 MG/2 ML VIAL IV ONE (20:01)
[2023-08-03] MEDS ORDERED: CEFTRIAXONE 1000 MG/VIAL ONE (20:01)
[2023-08-03] MEDS ORDERED: ONDANSETRON 4 MG/2 ML VIAL ONE (20:01)
[2023-08-03] MEDS ORDERED: NA CHLORIDE 0.9% 50 ML ONE (20:02)
[2023-08-03] MEDS ORDERED: NA CHLORIDE 0.9% 1,000 ML ONE (20:02)
[2023-08-03 20:35] LABS: Absolute Basophils 0.2 K/uL (0-0.5); Absolute Eosinophils 0.1 K/uL (0-0.5); Absolute Monocytes 0.9 K/uL (0.1-1.3); Absolute Neutrophil 4.2 K/uL (1.8-8.0); Basophils % 2.8 % (0-1.3); Eosinophils % 1.3 % (0-4.4); Hematocrit 38.9 % (39.6-49.0); Hemoglobin 12.7 g/dL (13.6-17.9); Lymphocytes % 26.7 % (15.3-44.8); MCH 27.1 pg (27.0-35.0); MCHC 32.8 g/dL (32.0-36.0); MCV 82.7 fL (80-100); MPV 8.3 fL (7.6-11.3); Monocytes % 12.5 % (3.3-12.3); Neutrophils % 56.7 % (41.7-73.7); Nucleated Red Blood Cells % 0.1 % (0-0); Platelets 311 thou/uL (152-406)
[2023-08-03 21:05] LABS: Albumin 3.2 g/dL (3.4-5.0); Albumin/Globulin Ratio 0.7 (1.1-1.8); Anion Gap 8.3 mEq/L (5.0-15.0); Bilirubin Total 0.3 mg/dL (0.2-1.0); C-Reactive Protein 3.22 mg/L (<3.00); Globulin 4.8 g/dL (2.3-3.5)
[2023-08-03 21:10] LABS: Potassium 5.3 mEq/L (3.5-5.1)
[2023-08-03] MEDS ORDERED: DIAZEPAM 10 MG/2 ML INJ SYRINGE ONE (21:27)
--- NOTE | 2023-08-03 22:36 | RAD REPORT ---
EXAM DESCRIPTION: CT - Abdomen Pelvis W Contrast - 08/03/2023 9:37 pm CLINICAL HISTORY: ABD PAIN COMPARISON: Abdomen Pelvis W Contrast dated 03/02/2018; Abdomen Pelvis W Contrast dated 8; CT ABD PELVIS W CONTRAST dated 11/29/2014; CT ABD PELVIS W CONTRAST dated 05/26/2012 TECHNIQUE: Thin cut axial CT imaging of the abdomen and pelvis was performed following intravenous a dministration of 100 mL Isovue 300. Multiplanar reformats were generated and reviewed. All CT scans are performed using dose optimization technique as appropriate and may include automated exposure control or mA/KV adjustment according to patient size. FINDINGS: No suspicious findings in the lung bases. Few small calcified granulomas. The liver, spleen, adrenal glands, and pancreas show no suspicious findings. Gallbladder shows small stones. Symmetric renal function is seen with no hydronephrosis or suspicious renal mass. No dilated bowel loops or bowel wall thickening. Few colonic diverticula. No free air, free fluid or inflammatory stranding. No hernia, mass or bulky lymphadenopathy. The urinary bladder is without sign ificant finding. Dense atherosclerotic calcifications of the abdominal aorta and its major branches. No suspicious bony findings. Fusion hardware across L4-5 disc space. IMPRESSION: No acute intra-abdominal process. Incidental findings as above.
--- NOTE | 2023-08-03 22:57 | EDPHYS ---
Physician Documentation [facility] Name: Bryan Graf Age: 72 yrs Sex: Male : 1950 Arrival Date: 08/03/2023 Time: 19:38 Bed 2 Private MD: ED Physician Wild Coulter HPI: 08/02 19:43 This 72 yrs old Male presents to ER via Unassigned with complaints of sp4 Abdominal Pain. 08/03 22:02 Very pleasant 72-year-old male with history of seizures, chronic pain, COPD, sp4 hypertension, migraine, CVA, presents with acute onset abdominal pain associated with persistent diarrhea for the past 3 weeks. Patient states loss of appetite persistent watery diarrhea for the past 3 weeks he also reported some blood in the bowel movements. . Historical: - Allergies: 08/02 19:50 Aspirin; tm6 19:50 PENICILLINS; tm6 - Home Meds: 19:50 Keppra 1 Oral tablet 1 tab 2 times per day [Active]; divalproex 250 mg oral Tablet, tm6 Extended Release 24 hr [Active]; - PMHx: 19:50 Seizures; Chronic pain; COPD; Hypertension; Migraine; CVA; swelling and pain to L lower tm6 leg; Pneumonia; - PSHx: 19:50 back surgery; heart surgery; Right hip surgery; tm6 - Immunization history:: Adult Immunizations up to date, Client reports receiving the 2nd dose of the Covid vaccine, Flu vaccine is not up to date. - Infectious Disease History:: Denies. - Social history:: Smoking status: Patient reports the use of cigarette tobacco products, smokes one-half pack cigarettes per day, Patient/guardian denies using alcohol, street drugs. - Family history:: not pertinent. ROS: 08/03 22:02 Constitutional: Negative for fever, chills, and weight loss, positive for abdominal sp4 pain, positive for nausea ,positive for diarrhea , positive for bloody stool All other systems are negative, Exam: 22:02 Constitutional: This is a well developed, well nourished patient who is awake, alert, sp4 and in no acute distress. Frail elderly male with stigmata of COPD Head/Face: Normocephalic, atraumatic. Eyes: Pupils equal round and reactive to light, extra-ocular motions intact. Lids and lashes normal. Conjunctiva and sclera are not injected. Cornea within normal limits. Periorbital areas with no swelling, redness, or edema. ENT: Nares patent. No nasal discharge, no septal abnormalities noted. Tympanic membranes are normal and external auditory canals are clear. Oropharynx with no redness, swelling, or masses, exudates, or evidence of obstruction, uvula midline. Mucous membranes moist. Neck: Trachea midline, no thyromegaly or masses palpated, and no cervical lymphadenopathy. Supple, full range of motion without nuchal rigidity, or vertebral point tenderness. Chest/axilla: Normal chest wall appearance and motion. Nontender with no deformity. No lesions are appreciated. Cardiovascular: Regular rate and rhythm with a normal S1 and S2. No gallops, murmurs, or rubs. Normal PMI, no JVD. No pulse deficits. Respiratory: Lungs have equal breath sounds bilaterally, clear to auscultation and percussion. No rales, rhonchi or wheezes noted. No increased work of breathing, no retractions or nasal flaring. Abdomen/GI: Soft, with normal bowel sounds. No distension or tympany. No guarding or rebound. No evidence of tenderness throughout. Back: No spinal tenderness. No costovertebral tenderness. Male : Normal genitalia with no discharge or lesions. Digital rectal exam reveals no blood or melena. Skin: Warm, dry with normal turgor. Normal color with no rashes, no lesions, and no evidence of cellulitis. MS/ Extremity: Pulses equal, no cyanosis. Neurovascular intact. Full, normal range of motion. Neuro: Awake and alert, GCS 15, oriented to person, place, time, and situation. Cranial nerves II-XII grossly intact. Motor strength 5/5 in all extremities. Sensory grossly intact. Psych: Awake, alert, with orientation to person, place and time. Behavior, mood, and affect are within normal limits Vital Signs: 08/02 19:48 BP 130 / 79; Pulse 75; Resp 19; Temp 97.7(O); Pulse Ox 97% on R/A; Weight 72.57 kg; km8 Height 5 ft. 8 in. ; Pain 10/10; 20:20 BP 129 / 67; Pulse 71; Resp 22; Pulse Ox 95% on R/A; km8 20:45 BP 140 / 64; Pulse 68; Resp 16; Pulse Ox 94% on R/A; km8 21:00 BP 130 / 68; Pulse 62; Resp 24; Pulse Ox 99% on R/A; km8 22:10 BP 142 / 70; Pulse 71; Resp 18; Pulse Ox 96% on R/A; km8 22:53 BP 138 / 65; Pulse 67; Resp 16; Pulse Ox 97% on R/A; tm6 23:59 BP 140 / 69; Pulse 61; Resp 19; Temp 97.1(TE); Pulse Ox 97% on R/A; Pain 0/10; tm6 19:48 Body Mass Index 24.33 (72.57 kg, 172.72 cm) km 19:48 Pain Scale: Adult km8 23:59 Pain Scale: Adult tm6 Natalie Coma Score: 08/03 22:02 Eye Response: spontaneous(4). Motor Response: obeys commands(6). Verbal Response: sp4 oriented(5). Total: 15. MDM: 08/02 19:42 Patient medically screened. sp4 22:56 ED course: EXAM DESCRIPTION: CT - Abdomen Pelvis W Contrast - 08/03/2023 9:37 pm sp4 CLINICAL HISTORY: ABD PAIN COMPARISON: Abdomen Pelvis W Contrast dated 03/02/2018; Abdomen Pelvis W Contrast dated 05/03/2017; CTABD PELVIS W CONTRAST dated 11/29/2014; CTABD PELVIS W CONTRAST dated 05/26/2012 TECHNIQUE: Thin cut axial CT imaging of the abdomen and pelvis was performed following intravenous administration of 100 mL Isovue 300. Multiplanar reformats were generated and reviewed. All CT scans are performed using dose optimization technique as appropriate and may include automated exposure control or mA/KV adjustment according to patient size. FINDINGS: No suspicious findings in the lung bases. Few small calcified granulomas. The liver, spleen, adrenal glands, and pancreas show no suspicious findings. Gallbladder shows small stones. Symmetric renal function is seen with no hydronephrosis or suspicious renal mass. No dilated bowel loops or bowel wall thickening. Few colonic diverticula. No free air, free fluid or inflammatory stranding. No hernia, mass or bulky lymphadenopathy. The urinary bladder is without significant finding. Dense atherosclerotic calcifications of the abdominal aorta and its major branches. No suspicious bony findings. Fusion hardware across L4-5 disc space. IMPRESSION: No acute intra-abdominal process. Incidental findings as above. . 08/03 22:02 Differential Diagnosis altered mental status, sepsis, flu. Data reviewed: vital signs, sp4 nurses notes, lab test result(s), radiologic studies, CT scan. Consideration of Admission/Observation Escalation of care including admission/observation considered. ED course: Patient states that he continues to have persistent pain. 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 CT has revealed no signs of colitis or enteritis. Patient stable for discharge home with as needed medications for gastroenteritis. . 08/02 19:41 Order name: CBC with Diff; Complete Time: 21:32 4 08/02 19:41 Order name: CMP; Complete Time: 21:32 4 08/02 19:41 Order name: Lipase; Complete Time: 21:32 sp4 08/02 19:41 Order name: Urinalysis w/ reflexes 4 08/02 19:42 Order name: CRP; Complete Time: 21:32 4 08/02 19:42 Order name: Lactate w/ 2H reflex if indic.; Complete Time: 21:32 4 08/02 19:42 Order name: Blood Culture Adult (2) 4 08/02 19:42 Order name: Influenza Screen (a \T\ B); Complete Time: 22:28 4 08/02 19:41 Order name: CT Abd/Pelvis - IV Contrast Only; Complete Time: 22:51 4 08/02 19:41 Order name: IV Saline Lock; Complete Time: 20:43 4 08/02 19:41 Order name: Labs collected and sent; Complete Time: 20:43 4 Administered Medications: 08/02 21:09 Drug: Famotidine IVP 20 mg IVP once; dilute with 10 mL 0.9% NaCl; give over 2 minutes tm6 Route: IVP; Site: right forearm; 22:13 Follow up: Response: No adverse reaction 8 21:10 Drug: NS 0.9% IV 1000 ml IV at 1 bolus Per protocol; 1000 mL bolus Route: IV; Rate: 1 tm6 bolus; Site: right forearm; 08/03 00:01 Follow up: IV Status: Completed infusion; IV Intake: 1000ml tm6 08/02 21:10 Drug: Ondansetron IVP 4 mg IVP once; over 2 minutes Route: IVP; Site: right forearm; tm6 22:14 Follow up: Response: No adverse reaction km8 21:10 Drug: morphine IVP or IV 4 mg IVP once over 4 mins Route: IVP; Infused Over: 4 mins; tm6 Site: right forearm; 22:14 Follow up: Response: No adverse reaction; Pain is unchanged, physician notified km8 21:18 Drug: Rocephin - Rocephin (cefTRIAXone) IVPB 1 grams IVPB once over 30 mins; (mix in 50 km8 mL NS) Route: IVPB; Infused Over: 30 mins; Site: right forearm; 22:13 Follow up: IV Status: Completed infusion; IV Intake: 50ml km8 21:29 Drug: Diazepam IVP 5 mg IVP once Route: IVP; Site: right forearm; km8 22:13 Follow up: Response: Anxiety decreased km8 22:31 Drug: morphine IVP or IV 4 mg IVP once over 4 mins Route: IVP; Infused Over: 4 mins; km8 Site: right forearm; Disposition Summary: 08/03/23 22:57 Discharge Ordered Notes: We recommend clear liquid diet for 24 hours . Location: Home sp4 Problem: new sp4 Symptoms: have improved sp4 Condition: Stable sp4 Diagnosis - Acute gastroenteritis, acute diarrhea sp4 Followup: sp4 - With: Private Physician - When: 7 - 10 days - Reason: Recheck today's complaints Discharge Instructions: - Discharge Summary Sheet sp4 - Viral Gastroenteritis, Adult, [id number] sp4 Forms: - Patient Portal Instructions sp4 Prescriptions: - loperamide 2 mg Oral capsule - take 1 capsule ORAL route every 6 hours PRN diarrhea; 30 capsule; Refills: 0, sp4 Product Selection Permitted - Tramadol 50 mg Oral tablet - take 1 tablet ORAL route every 8 hours as needed; 20 tablet; Refills: 0, sp4 Product Selection Permitted - ondansetron 8 mg Oral Tablet,disintegrating - take 1 tablet ORAL route every 8 hours PRN diarrhea; 30 tablet; Refills: 0, sp4 Product Selection Permitted Signatures: Dispatcher [employer] Wild Rosa MD MD sp4 Erma Valenzuela RN RN 8 Manasa Alexander RN RN tm6 Corrections: (The following items were deleted from the chart) 19: 19:42 CBC+H.LAB.BRZ ordered. EDMS EDMS 19:42 19:42 COMPREHENSIVE METABOLIC PANEL+C.LAB.BRZ ordered. EDMS EDMS : 19:42 LIPASE+C.LAB.BRZ ordered. EDMS EDMS : 19:42 Urinalysis+U.LAB.BRZ ordered. EDMS EDMS
--- NOTE | 2023-08-03 22:57 | ER ---
Nurse's Notes [facility] Name: Bryan Graf Age: 72 yrs Sex: Male : 1950 Arrival Date: 08/03/2023 Time: 19:38 Bed 2 Private MD: Diagnosis: Acute gastroenteritis, acute diarrhea Presentation: 08/02 19:48 Chief complaint: EMS states: patient complaining of abdominal pain near umbilical. tm6 Tender to palpation. Patient reported diarrhea x7 days, with dark bloody stools x2 days. Coronavirus screen: Vaccine status: Patient reports receiving the 2nd dose of the covid vaccine. Ebola Screen: Patient negative for fever greater than or equal to 101.5 degrees Fahrenheit, and additional compatible Ebola Virus Disease symptoms Patient denies exposure to infectious person. Patient denies travel to an Ebola-affected area in the 21 days before illness onset. No symptoms or risks identified at this time. Initial Sepsis Screen: Does the patient meet any 2 criteria? No. Patient's initial sepsis screen is negative. Does the patient have a suspected source of infection? No. Patient's initial sepsis screen is negative. Risk Assessment: Do you want to hurt yourself or someone else? Patient reports no desire to harm self or others. Onset of symptoms was July 27, 2023. 19:48 Method Of Arrival: EMS: [facility] tm6 19:48 Acuity: GELACIO 3 tm6 Triage Assessment: 19:50 General: Appears distressed, uncomfortable, Behavior is calm, cooperative. Pain: tm6 Complains of pain in umbilical area and suprapubic area Pain does not radiate. Pain currently is 10 out of 10 on a pain scale. Quality of pain is described as sharp, Pain began one week ago. EENT: No signs and/or symptoms were reported regarding the EENT system. Neuro: Level of Consciousness is awake, alert, obeys commands, Oriented to person, place, time, situation. Cardiovascular: No deficits noted. Patient's skin is warm and dry. Respiratory: Airway is patent Respiratory effort is even, unlabored, Respiratory pattern is regular, symmetrical. GI: Abdomen is flat, non-distended, Bowel sounds present X 4 quads. hyperactive in right upper quadrant, left upper quadrant, right lower quadrant and left lower quadrant Abd is soft Abdomen is tender to palpation in umbilical area, right lower quadrant and left lower quadrant Reports diarrhea, bloody stool. : No signs and/or symptoms were reported regarding the genitourinary system. Derm: No signs and/or symptoms reported regarding the dermatologic system. Musculoskeletal: No signs and/or symptoms reported regarding the musculoskeletal system. Historical: - Allergies: 19:50 Aspirin; tm6 19:50 PENICILLINS; tm6 - Home Meds: 19:50 Keppra 1 Oral tablet 1 tab 2 times per day [Active]; divalproex 250 mg oral Tablet, tm6 Extended Release 24 hr [Active]; - PMHx: 19:50 Seizures; Chronic pain; COPD; Hypertension; Migraine; CVA; swelling and pain to L lower tm6 leg; Pneumonia; - PSHx: 19:50 back surgery; heart surgery; Right hip surgery; tm6 - Immunization history:: Adult Immunizations up to date, Client reports receiving the 2nd dose of the Covid vaccine, Flu vaccine is not up to date. - Infectious Disease History:: Denies. - Social history:: Smoking status: Patient reports the use of cigarette tobacco products, smokes one-half pack cigarettes per day, Patient/guardian denies using alcohol, street drugs. - Family history:: not pertinent. Screenin:56 [facility] ED Fall Risk Assessment (Adult) History of falling in the last 3 months, tm6 including since admission No falls in past 3 months (0 pts) Confusion or Disorientation No (0 pts) Intoxicated or Sedated No (0 pts) Impaired Gait No (0 pts) Mobility Assist Device Used No (0 pt) Altered Elimination No (0 pt) Score/Fall Risk Level 0 - 2 = Low Risk Oriented to surroundings, Maintained a safe environment. Abuse screen: Denies threats or abuse. Denies injuries from another. Nutritional screening: No deficits noted. Tuberculosis screening: No symptoms or risk factors identified. Assessment: 19:56 Reassessment: see triage assessment. tm6 21:00 Reassessment: Patient appears in no apparent distress at this time. No changes from km8 previously documented assessment. Patient and/or family updated on plan of care and expected duration. Pain level reassessed. Patient is alert, oriented x 3, equal unlabored respirations, skin warm/dry/pink. 22:15 Reassessment: Patient appears in no apparent distress at this time. No changes from km8 previously documented assessment. Patient and/or family updated on plan of care and expected duration. Pain level reassessed. Patient is alert, oriented x 3, equal unlabored respirations, skin warm/dry/pink. . 22:53 Reassessment: Patient and/or family updated on plan of care and expected duration. Pain tm6 level reassessed. Patient is alert, oriented x 3, equal unlabored respirations, skin warm/dry/pink. 23:59 Reassessment: Patient and/or family updated on plan of care and expected duration. Pain tm6 level reassessed. Patient is alert, oriented x 3, equal unlabored respirations, skin warm/dry/pink. Vital Signs: 19:48 BP 130 / 79; Pulse 75; Resp 19; Temp 97.7(O); Pulse Ox 97% on R/A; Weight 72.57 kg; km8 Height 5 ft. 8 in. ; Pain 10/10; 20:20 BP 129 / 67; Pulse 71; Resp 22; Pulse Ox 95% on R/A; km8 20:45 BP 140 / 64; Pulse 68; Resp 16; Pulse Ox 94% on R/A; km8 21:00 BP 130 / 68; Pulse 62; Resp 24; Pulse Ox 99% on R/A; km8 22:10 BP 142 / 70; Pulse 71; Resp 18; Pulse Ox 96% on R/A; km8 22:53 BP 138 / 65; Pulse 67; Resp 16; Pulse Ox 97% on R/A; tm6 23:59 BP 140 / 69; Pulse 61; Resp 19; Temp 97.1(TE); Pulse Ox 97% on R/A; Pain 0/10; tm6 19:48 Body Mass Index 24.33 (72.57 kg, 172.72 cm) km8 19:48 Pain Scale: Adult km8 23:59 Pain Scale: Adult 6 Natalie Coma Score: 08/03 22:02 Eye Response: spontaneous(4). Motor Response: obeys commands(6). Verbal Response: sp4 oriented(5). Total: 15. ED Course: 08/02 19:39 Patient arrived in ED. jj6 19:41 Wild Coulter MD is Attending Physician. sp4 19:47 Manasa Alexander RN is Primary Nurse. tm6 19:50 Triage completed. tm6 19:50 Arm band placed on left wrist. tm6 19:56 Patient has correct armband on for positive identification. Placed in gown. Bed in low tm6 position. Call light in reach. Side rails up X2. Provided Education on: plan of care. Client placed on continuous cardiac and pulse oximetry monitoring. NIBP monitoring applied. boilermaker mechanic on. Pulse ox on. NIBP on. Door closed. Noise minimized. Warm blanket given. Cleaned of incontinence. 20:16 Missed attempt(s): 20 gauge Bleeding controlled, band aid applied, catheter tip intact. oe 20:20 First set of blood cultures drawn by me. oe 20:22 Inserted saline lock: 22 gauge in right forearm, using aseptic technique. Blood oe collected. 20:43 CMP Sent. oe 20:43 Lipase Sent. oe 21:01 Missed attempt(s): 22 gauge in right forearm. Bleeding controlled, band aid applied, km8 catheter tip intact. 21:39 CT Abd/Pelvis - IV Contrast Only In Process Unspecified. EDMS 08/03 00:00 No provider procedures requiring assistance completed. IV discontinued, intact, tm6 bleeding controlled, No redness/swelling at site. Pressure dressing applied. Administered Medications: 08/02 21:09 Drug: Famotidine IVP 20 mg IVP once; dilute with 10 mL 0.9% NaCl; give over 2 minutes tm6 Route: IVP; Site: right forearm; 22:13 Follow up: Response: No adverse reaction 8 21:10 Drug: NS 0.9% IV 1000 ml IV at 1 bolus Per protocol; 1000 mL bolus Route: IV; Rate: 1 tm6 bolus; Site: right forearm; 08/03 00:01 Follow up: IV Status: Completed infusion; IV Intake: 1000ml tm6 08/02 21:10 Drug: Ondansetron IVP 4 mg IVP once; over 2 minutes Route: IVP; Site: right forearm; tm6 22:14 Follow up: Response: No adverse reaction km8 21:10 Drug: morphine IVP or IV 4 mg IVP once over 4 mins Route: IVP; Infused Over: 4 mins; tm6 Site: right forearm; 22:14 Follow up: Response: No adverse reaction; Pain is unchanged, physician notified km8 21:18 Drug: Rocephin - Rocephin (cefTRIAXone) IVPB 1 grams IVPB once over 30 mins; (mix in 50 km8 mL NS) Route: IVPB; Infused Over: 30 mins; Site: right forearm; 22:13 Follow up: IV Status: Completed infusion; IV Intake: 50ml 8 21:29 Drug: Diazepam IVP 5 mg IVP once Route: IVP; Site: right forearm; km8 22:13 Follow up: Response: Anxiety decreased 8 22:31 Drug: morphine IVP or IV 4 mg IVP once over 4 mins Route: IVP; Infused Over: 4 mins; 8 Site: right forearm; Medication: 19:56 VIS not applicable for this client. tm6 Intake: 22:13 IV: 50ml; Total: 50ml. km8 08/03 00:01 IV: 1000ml; Total: 1050ml. tm6 Outcome: 08/02 22:57 Discharge ordered by . sp4 08/03 00:00 Discharged to home via wheelchair, with family, tm6 Condition: stable Discharge instructions given to patient, Instructed on discharge instructions, follow up and referral plans. medication usage, Demonstrated understanding of instructions, follow-up care, medications, Prescriptions given X 3, 00:00 Patient left the ED. tm6 Signatures: Dispatcher [employer] EDMS Rory Frias Jennifer [email or web address] Wild Coulter MD MD sp4 Erma Valenzuela RN RN 8 Manasa Alexander RN RN tm6 Corrections: (The following items were deleted from the chart) 08/02 20:42 20:20 First set of blood cultures drawn by myles rivera 22:53 19:48 BP 130 / 79; Pulse 75bpm; Resp 19bpm; Pulse Ox 97% RA; Temp 20F; 72.57 kg; Height [facility] 5 ft. 8 in.; BMI: 24.3; Pain 10/10, Adult; tm6
[2023-08-04 00:10] LABS: Specific Gravity > 1.030 (1.005-1.030); Sqamous Epithelial <5 /HPF (None Seen); Urine Bacteria None Seen /HPF (<20); Urine Bilirubin NEGATIVE (Negative); Urine Blood Negative (Negative); Urine Clarity Clear (Clear); Urine Color Light-Yellow (Yellow); Urine Culture Reflex Order NOT NEEDED; Urine Glucose NEGATIVE (Negative); Urine Ketones NEGATIVE (Negative); Urine Microscopic Reflex YN ORDER UMIC; Urine Mucus Slight /HPF (None Seen); Urine Nitrite NEGATIVE (Negative); Urine Protein NEGATIVE (Negative); Urine RBC <5 /HPF (None Seen); Urine Urobilinogen Normal (Normal); Urine WBC <5 /HPF (<5); Urine Yeast (Budding) Trace /HPF (None Seen); Urine pH 7.5 (5.0-7.0)
[2023-08-04 00:33] VITALS: BP 140/69; TEMP 97.1; O2SAT 97
== END 2023-08-04 | disposition home or self-care (01) ==
LOC: ER 19:38
DX: K52.9 Noninfective gastroenteritis and colitis, unspecified (principal); F17.210 Nicotine dependence, cigarettes, uncomplicated; Z88.0 Allergy status to penicillin; Z88.6 Allergy status to analgesic agent
CPT/HCPCS: 96365; 96361; 87040 ×2; 85025; 81001; 36415; 83605; 83690; 80053; 86140; 87804 ×2; 74177; 96375; 99285; Q9967; J3360; J2405; J7030; J0696

== ENCOUNTER 2023-08-05 16:18 | Inpatient (IN) | payer OTHER ==
--- NOTE | 2023-08-05 17:24 | RAD REPORT ---
EXAM DESCRIPTION: CT - Head Brain Wo Cont - 08/05/2023 5:19 pm CLINICAL HISTORY: seizure, ams Headache, drowsiness, seizure COMPARISON: Head Brain Wo Cont dated 03/12/2023; Head Brain Wo Cont dated 11/09/2022 TECHNIQUE: All CT scans are performed using dose optimization technique as appropriate and may inclu de automated exposure control or mA/KV adjustment according to patient size. FINDINGS: No intracranial hemorrhage, hydrocephalus or extra-axial fluid collection.Mild generalized brain atrophy.No areas of brain edema or evidence of midline shift. Moderate fluid left maxillary antrum. The calvarium is intact. IMPRESSION: No acute intracranial abnormality.
--- NOTE | 2023-08-05 17:54 | RAD REPORT ---
EXAM DESCRIPTION: RAD - Chest Single View - 08/05/2023 5:48 pm CLINICAL HISTORY: ams Chest pain. COMPARISON: Chest Single View dated 05/15/2023; Chest Single View dated 03/12/2023; Chest Single View dated 11/09/2022; Chest Single View dated 09/12/2022 FINDINGS: Portable technique limits examination quality. Mild interstitial pulmonary edema. The heart is moderately enlarged in size. No displaced fractures.S ternotomy wires. IMPRESSION: Mild CHF.
[2023-08-05 18:22] LABS: Absolute Eosinophils 0.1 K/uL (0-0.5); Absolute Lymphocytes (CBC) 1.5 K/uL (0.7-4.9); Absolute Monocytes 0.9 K/uL (0.1-1.3); Absolute Neutrophil 4.5 K/uL (1.8-8.0); Basophils % 0.5 % (0-1.3); Eosinophils % 1.8 % (0-4.4); Hematocrit 33.8 % (39.6-49.0); Hemoglobin 11.2 g/dL (13.6-17.9); Lymphocytes % 21.6 % (15.3-44.8); MCH 27.6 pg (27.0-35.0); MCHC 33.1 g/dL (32.0-36.0); MCV 83.3 fL (80-100); MPV 8.3 fL (7.6-11.3); Monocytes % 12.9 % (3.3-12.3); Neutrophils % 63.2 % (41.7-73.7); Platelets 244 thou/uL (152-406); RBC Red Blood Cell Count 4.05 M/uL (4.33-5.43); Red Cell Distribution Width 21.6 % (12.1-15.2)
[2023-08-05] MEDS ORDERED: NA CHLORIDE 0.9% 500 ML ONE (19:07)
--- NOTE | 2023-08-05 19:34 | RAD REPORT ---
EXAM DESCRIPTION: CTAbdomen Pelvis W Contrast - 08/05/2023 7:27 pm CLINICAL HISTORY: Abdominal pain. diarrhea, abd pain COMPARISON: Abdomen Pelvis W Contrast dated 08/03/2023; Abdomen Pelvis W Contrast dated 8; Abdomen Pelvis W Contrast dated 05/03/2017; CT ABD PELVIS W CONTRAST dated 11/29/2014 TECHNIQUE: Biphasic CT imaging of the abdomen and pelvis was performed with 100 ml non-ionic IV cont rast. All CT scans are performed using dose optimization technique as appropriate and may include automated exposure control or mA/KV adjustment according to patient size. FINDINGS: The lung bases are clear. The liver, spleen, pancreas, adrenal glands and kidneys are within normal limits. Cholelithiasis. No bowel obstruction, free air, free fluid or abscess. Prominent stool throughout the colon. Divertic ulosis coli. No evidence of significant lymphadenopathy. Prominent atherosclerosis. No suspicious bony findings. Lower lumbar hardware. IMPRESSION: No acute intra-abdominal or pelvic finding. Prominent stool throughout the colon.
[2023-08-05 19:37] LABS: PT Prothrombin Time 11.8 SECONDS (9.5-12.5); PTT, Activated Partial Thromb 34.2 SECONDS (24.3-36.9); Protime INR 1.07
[2023-08-05 19:42] LABS: Anion Gap 6.8 mEq/L (5.0-15.0); Potassium 3.8 mEq/L (3.5-5.1); Troponin High Sensitivity 13.5 pg/mL (<58.9)
--- NOTE | 2023-08-05 19:47 | EDPHYS ---
Physician Documentation [facility] Name: Brayn Graf Age: 72 yrs Sex: Male : 1950 Arrival Date: 08/05/2023 Time: 16:18 Bed 14 Private MD: ED Physician Roe Yang HPI: 08/04 16:28 This 72 yrs old Male presents to ER via EMS with complaints of altered mental status. ms3 16:28 72-year-old male with past medical history of chronic pain, COPD, stroke, hypertension, ms3 migraine, pneumonia, seizures presents to the emergency department via [facility] for altered mental status/possible seizure. EMS notes patient's family was unsure of patient's last known well time. HPI limited as family not in the emergency department and patient not verbal at this time.. Historical: - Allergies: 16:22 Aspirin; rs5 16:22 PENICILLINS; rs5 - Home Meds: 21:01 divalproex 250 mg Oral Tablet [Active]; Keppra 1 Oral tablet 1 tab 2 times per day bm8 [Active]; - PMHx: 16:22 Chronic pain; COPD; CVA; Hypertension; Migraine; Pneumonia; Seizures; swelling and pain rs5 to L lower leg; - PSHx: 16:22 back surgery; Right hip surgery; heart surgery; rs5 - Immunization history:: Adult Immunizations unknown. - Infectious Disease History:: Denies. - Social history:: Smoking status: unknown. ROS: 16:28 Unable to obtain ROS due to altered mental status, ms3 Exam: 16:28 Head/Face: Normocephalic, atraumatic. Neck: Trachea midline, no cervical ms3 lymphadenopathy. Supple, full range of motion without nuchal rigidity, or vertebral point tenderness. No Meningismus. Cardiovascular: Regular rate and rhythm with a normal S1 and S2. No gallops, murmurs, or rubs. Normal PMI, no JVD. No pulse deficits. Respiratory: Lungs have equal breath sounds bilaterally, clear to auscultation and percussion. No rales, rhonchi or wheezes noted. No increased work of breathing, no retractions or nasal flaring. Abdomen/GI: Soft, non-tender, with normal bowel sounds. No distension or tympany. No guarding or rebound. No evidence of tenderness throughout. 16:28 Neuro: Mentation: unable to follow commands, Mumbling incoherent words, 17:19 ECG was reviewed by the Attending Physician. ms3 Vital Signs: 16:20 BP 136 / 73; Pulse 76; Resp 18; Pulse Ox 99% on R/A; rs5 17:39 BP 140 / 76; Pulse 73; Resp 18; Pulse Ox 99% on R/A; rs5 19:19 BP 143 / 65; Pulse 73; Resp 18; Temp 98.7; Pulse Ox 100% ; Pain 6/10; bm8 20:30 BP 116 / 83; Pulse 72; Resp 18; Temp 98.7; Pulse Ox 98% ; Pain 6/10; bm8 19:19 Pain Scale: Adult bm8 20:30 Pain Scale: Adult bm8 Natalie Coma Score: 19:19 Eye Response: spontaneous(4). Motor Response: obeys commands(6). Verbal Response: bm8 oriented(5). Total: 15. MDM: 16:28 Differential Diagnosis: CVA, electrolyte abnormality, seizure. ms3 17:00 Patient medically screened. ms3 18:12 Transition of care: After a detail discussion of the patient's case, care is ms3 transferred to Roe Yang MD. 19:45 Data reviewed: vital signs, nurses notes, lab test result(s), radiologic studies, CT rn scan, and as a result, I will admit patient. Consideration of Admission/Observation Patient was admitted/placed on observation. Escalation of care including admission/observation considered. Counseling: I had a detailed discussion with the patient and/or guardian regarding the historical points, exam findings, and any diagnostic results supporting the discharge/admit diagnosis, lab results, radiology results, the need for further work-up and treatment in the hospital. Response to treatment: the patient's symptoms have mildly improved after treatment, and as a result, I will admit patient. ED course: Patient still not back to baseline. Is more alert and more talkative, possibly postictal, but having difficulty with speech and states normally does not have trouble with speech. Given unknown last normal and family never arrived, not in TNK window. CT head without contrast negative for acute findings. Will admit to hospitalist service for further care.. 19:57 ED course: Pt states allergic to aspirin. rn 08/04 16:28 Order name: Basic Metabolic Panel; Complete Time: 19:46 ms3 08/04 16:28 Order name: CBC with Diff; Complete Time: 19:57 ms3 08/04 16:28 Order name: High Sensitivity Troponin; Complete Time: 19:46 ms3 08/04 16:28 Order name: Protime (+inr); Complete Time: 19:46 ms3 08/04 16:28 Order name: Ptt, Activated; Complete Time: 19:46 ms3 08/04 16:43 Order name: Glucose, Ancillary Testing; Complete Time: 17:19 EDMS 08/04 17:26 Order name: Depakote ms3 08/04 19:55 Order name: CBC Smear Scan; Complete Time: 19:57 EDMS 08/04 20:25 Order name: ABG Arterial Blood Gas EDMS 08/04 20:25 Order name: Prolactin EDMS 08/04 20:25 Order name: Urinalysis W/Microscopic EDMS 08/04 20:25 Order name: Thyroid Stimulating Hormone EDMS 08/04 20:25 Order name: CBC with Automated Diff EDMS 08/04 20:25 Order name: CBC with Automated Diff EDMS 08/04 20:25 Order name: CBC with Automated Diff EDMS 08/04 20:25 Order name: CBC with Automated Diff EDMS 08/04 20:25 Order name: Comprehensive Metabolic Panel EDMS 08/04 20:25 Order name: Comprehensive Metabolic Panel EDMS 08/04 20:25 Order name: Comprehensive Metabolic Panel EDMS 08/04 20:25 Order name: Comprehensive Metabolic Panel EDMS 08/04 20:25 Order name: Comprehensive Metabolic Panel EDMS 08/04 20:25 Order name: Magnesium EDMS 08/04 20:25 Order name: Magnesium EDMS 08/04 20:25 Order name: Magnesium EDMS 08/04 20:25 Order name: Magnesium EDMS 08/04 20:25 Order name: Troponin High Sensitivity EDMS 08/04 20:25 Order name: Troponin High Sensitivity EDMS 08/04 20:25 Order name: Troponin High Sensitivity EDMS 08/04 16:28 Order name: CT Head Brain wo Cont; Complete Time: 17:25 ms3 08/04 16:28 Order name: CXR XRAY; Complete Time: 17:57 ms3 08/04 18:27 Order name: CT Abd/Pelvis - IV Contrast Only; Complete Time: 19:36 rn 08/04 20:25 Order name: Brain With Cont EDMS 08/04 16:28 Order name: Seizure Precautions; Complete Time: 18:24 ms3 08/04 16:28 Order name: Accucheck; Complete Time: 16:31 ms3 08/04 16:28 Order name: Cardiac monitoring; Complete Time: 17:02 ms3 08/04 16:28 Order name: EKG - Nurse/Tech; Complete Time: 17:02 ms3 08/04 16:28 Order name: IV Saline Lock; Complete Time: 17:37 ms3 08/04 16:28 Order name: Labs collected and sent; Complete Time: 17:37 ms3 08/04 16:28 Order name: NPO; Complete Time: 17:37 ms3 08/04 16:28 Order name: O2 Per Protocol; Complete Time: 17:02 ms3 08/04 16:28 Order name: O2 Sat Monitoring; Complete Time: 17:02 ms3 08/04 16:28 Order name: Stroke Swallow Screen; Complete Time: 17:38 ms3 08/04 17:52 Order name: Labs - recollect needed: recollect green,blue and lavender top; Complete bd Time: 18:11 08/04 18:28 Order name: Labs - recollect needed: green and light blue top; Complete Time: 19:19 aa5 EC:19 Rate is 78 beats/min. Rhythm is irregular. QRS Marshall is Normal. DC interval is normal. ms3 QRS interval is normal. Clinical impression: Normal ECG and with PVC. Interpreted by me. Administered Medications: 19:19 Drug: NS 0.9% IV 500 ml IV at bolus once Route: IV; Rate: bolus; Site: right forearm; bm8 20:31 Follow up: Response: No adverse reaction; IV Status: Completed infusion; IV Intake: bm8 500ml 20:24 Drug: Acetaminophen PO 650 mg PO once Route: PO; bm8 20:45 Follow up: Response: No adverse reaction bm8 Disposition: 08/05 10:20 Chart complete. ms3 Disposition Summary: 08/05/23 19:47 Hospitalization Ordered Notes: Hospitalization Status: Observation rn Provider: Lincoln Ho rn [facility] Condition: Stable rn Problem: new rn Symptoms: have improved rn Bed/Room Type: Standard rn Room Assignment: 213(08/05/23 20:53) as6 Diagnosis - Altered mental status, unspecified rn - Slurred speech rn Forms: - Medication Reconciliation Form rn - SBAR form rn - Leadership Thank You Letter rn Signatures: Dispatcher [employer] EDMS Harriet Judy Roe Arenas MD MD rn Leilani Gamble, RN RN aa5 Deejay Mercado, DO DO ms3 Yevgeniy Traore RN RN as6 Michael Benito, RN RN rs5 Lito Woo, RN RN bm8 Corrections: (The following items were deleted from the chart) 08/04 16:28 16:28 BASIC METABOLIC PANEL+C.LAB.BRZ ordered. EDMS EDMS 16:28 16:28 CBC+H.LAB.BRZ ordered. EDMS EDMS 16:28 16:28 Troponin High Sensitivity+C.LAB.BRZ ordered. EDMS EDMS 16:28 16:28 PROTIME (+INR)+COAG.LAB.BRZ ordered. EDMS EDMS 16:28 16:28 PTT, ACTIVATED+COAG.LAB.BRZ ordered. EDMS EDMS 16:28 16:28 Head Brain Wo Cont+CT.RAD.BRZ ordered. EDMS EDMS 16:28 16:28 Chest Single View+RAD.RAD.BRZ ordered. EDMS EDMS 20:53 19:47 rn as6
--- NOTE | 2023-08-05 19:47 | ER ---
Nurse's Notes [facility] Name: Bryan Graf Age: 72 yrs Sex: Male : 1950 Arrival Date: 08/05/2023 Time: 16:18 Bed 14 Private MD: Diagnosis: Altered mental status, unspecified;Slurred speech Presentation: 08/04 16:20 Chief complaint: EMS states: "seizure like activity reported by family". Coronavirus rs5 screen: At this time, the client does not indicate any symptoms associated with coronavirus-19. Ebola Screen: No symptoms or risks identified at this time. Initial Sepsis Screen: Does the patient meet any 2 criteria? No. Patient's initial sepsis screen is negative. Does the patient have a suspected source of infection? No. Patient's initial sepsis screen is negative. Risk Assessment: Do you want to hurt yourself or someone else? Patient reports no desire to harm self or others. Onset of symptoms was August 05, 2023. 16:20 Method Of Arrival: EMS: [facility] rs5 16:20 Acuity: GELACIO 3 rs5 Triage Assessment: 16:22 General: Appears uncomfortable, Behavior is calm. Pain: Unable to use pain scale. Does rs5 not appear to understand pain scale. Historical: - Allergies: 16:22 Aspirin; rs5 16:22 PENICILLINS; rs5 - Home Meds: 21:01 divalproex 250 mg Oral Tablet [Active]; Keppra 1 Oral tablet 1 tab 2 times per day bm8 [Active]; - PMHx: 16:22 Chronic pain; COPD; CVA; Hypertension; Migraine; Pneumonia; Seizures; swelling and pain rs5 to L lower leg; - PSHx: 16:22 back surgery; Right hip surgery; heart surgery; rs5 - Immunization history:: Adult Immunizations unknown. - Infectious Disease History:: Denies. - Social history:: Smoking status: unknown. Screenin:22 [facility] ED Fall Risk Assessment (Adult) History of falling in the last 3 months, rs5 including since admission No falls in past 3 months (0 pts) Confusion or Disorientation No (0 pts) Intoxicated or Sedated No (0 pts) Impaired Gait No (0 pts) Mobility Assist Device Used No (0 pt) Altered Elimination No (0 pt) Score/Fall Risk Level 0 - 2 = Low Risk Oriented to surroundings, Maintained a safe environment. Abuse screen: Denies threats or abuse. Nutritional screening: No deficits noted. Tuberculosis screening: No symptoms or risk factors identified. Assessment: 16:22 General: Appears in no apparent distress. uncomfortable, Behavior is calm, cooperative. rs5 Pain: Denies pain. Neuro: Level of Consciousness is awake, alert, obeys commands, Oriented to person, place, time, situation. Cardiovascular: Patient's skin is warm and dry. Rhythm is regular. Respiratory: Airway is patent Respiratory effort is even, unlabored, Respiratory pattern is regular, symmetrical. GI: Abdomen is round non-distended, Abd is soft and non tender. : No signs and/or symptoms were reported regarding the genitourinary system. EENT: No signs and/or symptoms were reported regarding the EENT system. Derm: Skin is intact, Skin is pink, warm \\T\\ dry. Musculoskeletal: Range of motion: intact in all extremities. 19:19 Reassessment: Patient and/or family updated on plan of care and expected duration. Pain bm8 level reassessed. Patient is alert, oriented x 3, equal unlabored respirations, skin warm/dry/pink. General: Appears uncomfortable, Behavior is calm, cooperative. Pain: Complains of pain in head Pain does not radiate. Pain currently is 6 out of 10 on a pain scale. Quality of pain is described as aching. Neuro: Level of Consciousness is awake, alert, obeys commands, Oriented to person, place, time, situation. Neuro: Retort Furnace Operator are equal bilaterally. Cardiovascular: Capillary refill < 3 seconds Patient's skin is warm and dry. Respiratory: Airway is patent Respiratory effort is even, unlabored, Respiratory pattern is regular, symmetrical. 20:31 Reassessment: No changes from previously documented assessment. Patient and/or family bm8 updated on plan of care and expected duration. Pain level reassessed. Patient is alert, oriented x 3, equal unlabored respirations, skin warm/dry/pink. 20:50 Reassessment: PT STATES HE DOES NOT WANT TO BE ADMITTED. WANTS TO GO HOME. SPEAK WITH nini THE DOCTOR AND LET HIM KNOW. 20:55 Reassessment: INFORMED HOSPITALIST THAT HE WANTED TO LEAVE AND NOT BE ADMITTED. jj7 HOSPITALIST STATES HE WILL COME DOWN AND SPEAK WITH THE PT SHORTLY. 21:02 Reassessment: Patient appears in no apparent distress at this time. Patient and/or bm8 family updated on plan of care and expected duration. Pain level reassessed. Patient is alert, oriented x 3, equal unlabored respirations, skin warm/dry/pink. Patient states feeling better. Patient states symptoms have improved. Reassessment: called pt's to arrange transportation for pt. Pain: Complains of pain in head Pain currently is 2 out of 10 on a pain scale. Quality of pain is described as aching. Neuro: Level of Consciousness is awake, alert, obeys commands, Oriented to person, place, time, situation, Appropriate for age Retort Furnace Operator are equal bilaterally Moves all extremities. Full function. Cardiovascular: No deficits noted. Vital Signs: 16:20 BP 136 / 73; Pulse 76; Resp 18; Pulse Ox 99% on R/A; rs5 17:39 BP 140 / 76; Pulse 73; Resp 18; Pulse Ox 99% on R/A; rs5 19:19 BP 143 / 65; Pulse 73; Resp 18; Temp 98.7; Pulse Ox 100% ; Pain 6/10; bm8 20:30 BP 116 / 83; Pulse 72; Resp 18; Temp 98.7; Pulse Ox 98% ; Pain 6/10; bm8 19:19 Pain Scale: Adult bm8 20:30 Pain Scale: Adult bm8 Natalie Coma Score: 19:19 Eye Response: spontaneous(4). Motor Response: obeys commands(6). Verbal Response: bm8 oriented(5). Total: 15. ED Course: 16:20 Patient arrived in ED. rs5 16:21 Deejay Mercado DO is Attending Physician. ms3 16:21 Triage completed. rs5 16:22 Patient has correct armband on for positive identification. Placed in gown. Bed in low rs5 position. Call light in reach. Side rails up X2. 16:22 No provider procedures requiring assistance completed. rs5 16:30 Michael Benito, RN is Primary Nurse. rs5 17:20 CT Head Brain wo Cont In Process Unspecified. EDMS 17:40 Inserted saline lock: 20 gauge in right forearm, using aseptic technique. Blood as6 collected. 17:40 Depakote Sent. as6 17:40 Basic Metabolic Panel Sent. as6 17:40 CBC with Diff Sent. as6 17:40 High Sensitivity Troponin Sent. as6 17:40 Protime (+inr) Sent. as6 17:40 Ptt, Activated Sent. as6 17:50 CXR XRAY In Process Unspecified. EDMS 18:13 Attending Physician role handed off by Deejay Mercado DO ms3 18:13 Roe Yang MD is Attending Physician. ms3 19:19 satellite project site monitor on. Pulse ox on. NIBP on. Door closed. Noise minimized. Visitors bm8 limited. Warm blanket given. Verbal reassurance given. Head of bed elevated. 19:19 IV is patent, with fluids infusing freely, with good blood return, Flushed right bm8 forearm with 5 ml normal saline. 19:28 CT Abd/Pelvis - IV Contrast Only In Process Unspecified. EDMS 19:46 Lincoln Ho MD is Hospitalizing Provider. rn 20:16 Primary Nurse role handed off by Michael Benito, JOSEPH bm8 20:23 Lito Woo, RN is Primary Nurse. bm8 21:00 Provided Education on: AMA procedure and pt responsibility . bm8 21:02 Arm band placed on right wrist. bm8 Administered Medications: 19:19 Drug: NS 0.9% IV 500 ml IV at bolus once Route: IV; Rate: bolus; Site: right forearm; bm8 20:31 Follow up: Response: No adverse reaction; IV Status: Completed infusion; IV Intake: bm8 500ml 20:24 Drug: Acetaminophen PO 650 mg PO once Route: PO; bm8 20:45 Follow up: Response: No adverse reaction bm8 Medication: 16:23 VIS not applicable for this client. rs5 Intake: 20:31 IV: 500ml; Total: 500ml. bm8 Outcome: 19:47 Decision to Hospitalize by Provider. rn 21:54 Patient left the ED. jb4 Signatures: Dispatcher [employer] EDMS Roe Yang MD MD rn Bryson, James RN RN jb4 Deejay Mercado DO DO ms3 Yevgeniy Traore RN RN as6 Fox Jiang RN RN jj7 Michael Benito, RN RN rs5 Lito Woo, RN RN bm8
[2023-08-05 19:54] LABS: Anisocytosis 1+; Blood Morphology Comment NOTED (NOT SEEN); Platelet Estimate ADEQ; Poikilocytosis 1+; White Blood Cell Scan OK (OK)
--- NOTE | 2023-08-05 20:17 | P.HP ---
Certification for Inpatient Patient admitted to: Inpatient With expected LOS: >2 Midnights Practitioner: I am a practitioner with admitting privileges, knowledge of patient current condition, hospital course, and medical plan of care. Services: Services provided to patient in accordance with Admission requirements found in Title 42 Section 412.3 of the Code of Federal Regulations Patient History Date of Service: 08/05/23 Reason for admission: Altered mental status History of Present Illness: 72-year-old male with past medical history of HTN/COPD/CVA/seizure disorder/heart surgery who was brought brought in by EMS after family called saying patient was confused and may have had a seizure. As per EMS note seizure was noted witnessed by anyone and patient not sure when the seizure or confusion started. Patient on arrival in the ED was confused, family not available to give more history. Vital signs were stable. CT of the head abdomen as well as chest x-ray were unremarkable. BMP was unremarkable, WBC was also within normal range. Valproic acid level pending. Patient home meds unknown at this time. 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 Mother -: Diabetes - Social History Smoking Status: Unknown if ever smoked Alcohol use: No CD- Drugs: No Caffeine use: Yes Place of Residence: Home Review of Systems is unable to be obtained (due to AMS) Physical Examination - Physical Exam General: Confused, Delirious HEENT: Atraumatic, Normocephalic, PERRLA Neck: Supple, 2+ carotid pulse no bruit, JVD not distended Respiratory: Clear to auscultation bilaterally, Normal air movement Cardiovascular: No edema, Normal pulses, Regular rate/rhythm, Normal S1 S2 Capillary refill: <2 Seconds Gastrointestinal: Normal bowel sounds, Soft and benign Musculoskeletal: No clubbing, No swelling Neurological: Abnormal speech - Studies Laboratory Data (last 24 hrs) 08/05/23 08/05/23 08/05/23 19:16 19:16 18:09 WBC 7.10 Hgb 11.2 L Hct 33.8 L Plt Count 244 PT 11.8 INR 1.07 APTT 34.2 Sodium 142 Potassium 3.8 BUN 7 Creatinine 0.68 L Glucose 109 H Assessment and Plan - Plan Impression Acute encephalopathypossible post seizures History of seizure disorder Hypertension COPD History of CVA Plan Unclear etiology for encephalopathy Obtain ABG for pCO2 level although O2 sat stable Obtain MRI of the brain Start Keppra loading for now Neurology consult in a.m. Gentle IV fluid with D5 lactated Ringer's Lovenox for DVT prophylaxis Will try to reach family and try to obtain more history Addendum Patient later became more awake within 30 minutes of initial interview, insisting on going home. He is lucid and conversant. He brought that his medication from his back pocket, he states he follows with Dr. Botello. he recalls he has been on Depakote 250 twice daily as well as Keppra 1 g twice daily since the last 5 years. He states he has not any seizures in the last 5 years. He states he likely had a seizure today. He is adamant that he wants to go home. Option of staying overnight and to monitor valproic acid as well as a Keppra level and an MRI of the brain to rule out any new lesion discussed with patient based adamant to go home and if he has recurrent seizure he will come back. He is willing to sign AMA - Advance Directives Does patient have a Living Will: No Does patient have a Durable POA for Healthcare: No Physician Review: Patient Assessed, Agree with Above Assessment and Plan
[2023-08-05] MEDS ORDERED: levETIRAcetam 1,000 MG in NA CHLORIDE 0.9% 100 ML IV ONE (20:18)
[2023-08-05] MEDS ORDERED: ACETAMINOPHEN 325 MG TABLET ONE (20:19)
[2023-08-05] MEDS ORDERED: HYDRALAZINE HCL 20 MG/ML VIAL IV PRN (20:22)
[2023-08-05] MEDS ORDERED: MORPHINE 2 MG/ML SYR IV PRN (20:22)
[2023-08-05] MEDS ORDERED: LORazepam 2 MG/ML VIAL IV PRN (20:23)
[2023-08-05] MEDS ORDERED: D5LR 1,000 ML IV SCH (21:00)
[2023-08-05 22:36] VITALS: BP 116/83; TEMP 98.7; O2SAT 98
[2023-08-06] MEDS ORDERED: ENOXAPARIN 40 MG/0.4 ML SQ SCH (09:00)
--- NOTE | 2023-08-06 13:46 | P.DS ---
Admission Date: 08/05/23 Discharge Date: 08/06/23 Disposition: AMA-LEFT AGAINST MEDICAL ADVIC Discharge Condition: FAIR Reason for Admission: Altered mental status Brief History of Present Illness: 72-year-old male with past medical history of HTN/COPD/CVA/seizure disorder/heart surgery who was brought brought in by EMS after family called saying patient was confused and may have had a seizure. As per EMS note seizure was noted witnessed by anyone and patient not sure when the seizure or confusion started. Patient on arrival in the ED was confused, family not available to give more history. Vital signs were stable. CT of the head abdomen as well as chest x-ray were unremarkable. BMP was unremarkable, WBC was also within normal range. Valproic acid level pending. Patient home meds unknown at this time. Patient has been admitted for possible seizure with persistent altered mental status Hospital Course: Pt is a 72yo male with past medical history of HTN, COPD, CVA, seizure disorder, and heart surgery who presented with AMS. His family suspected possoble seizure activity and brought him to the ER for evaluation. On admission, CT head was unremarkable. CXR was unremarkable. CBC and BMP are unremarkable. Valproic acid level was 32.8 ( low). Pt later became alert and oriented in the ER. He requested to be discharged. We advised him to stay and get MRI brain and continue keppra and depakote. Pt later left AMA. Vital Signs/Physical Exam: Temp Pulse Resp BP Pulse Ox 98.7 F 72 18 116/83 08/05/23 20:30 08/05/23 20:30 08/05/23 20:30 08/05/23 20:30 Laboratory Data at Discharge: WBC Cancelled 08/06/23 05:00 Hgb Cancelled 08/06/23 05:00 Hct Cancelled 08/06/23 05:00 Plt Count Cancelled 08/06/23 05:00 PT 11.8 SECONDS (9.5-12.5) 08/05/23 19:16 INR 1.07 08/05/23 19:16 APTT 34.2 SECONDS (24.3-36.9) 08/05/23 19:16 Sodium Cancelled 08/06/23 05:00 Potassium Cancelled 08/06/23 05:00 BUN Cancelled 08/06/23 05:00 Creatinine Cancelled 08/06/23 05:00 Glucose Cancelled 08/06/23 05:00 Magnesium Cancelled 08/06/23 20:30 Total Bilirubin Cancelled 08/06/23 05:00 AST Cancelled 08/06/23 05:00 ALT Cancelled 08/06/23 05:00 Alkaline Phosphatase Cancelled 08/06/23 05:00 Home Medications: levETIRAcetam [Keppra*] 1,000 mg PO BID 11/27/15 Gabapentin 1 tab PO BID 09/22/20 Oxycodone HCl 1 tab PO QID PRN 09/22/20 Followup: NONE,NONE [Primary Care Provider] -
[2023-08-06] MEDS ORDERED: DIVALPROEX DR 250 MG TAB PO SCH (21:00)
[2023-08-06] MEDS ORDERED: levETIRAcetam 500 MG TAB PO SCH (21:00)
[2023-08-07 02:25] LABS: Absolute Eosinophils 0.1 K/uL (0-0.5); Absolute Lymphocytes (CBC) 2.3 K/uL (0.7-4.9); Absolute Monocytes 0.7 K/uL (0.1-1.3); Absolute Neutrophil 3.4 K/uL (1.8-8.0); Basophils % 0.6 % (0-1.3); Eosinophils % 2.1 % (0-4.4); Hematocrit 30.1 % (39.6-49.0); Lymphocytes % 35.4 % (15.3-44.8); MCH 27.6 pg (27.0-35.0); MCHC 33.2 g/dL (32.0-36.0); MPV 8.7 fL (7.6-11.3); Monocytes % 10.8 % (3.3-12.3); Neutrophils % 51.1 % (41.7-73.7); Nucleated Red Blood Cells % 0.1 % (0-0); Platelets 257 thou/uL (152-406); RBC Red Blood Cell Count 3.63 M/uL (4.33-5.43)
[2023-08-07 02:35] LABS: ALT/SGPT < 10 U/L (16-61); AST/SGOT 6 U/L (15-37); Albumin 2.5 g/dL (3.4-5.0); Albumin/Globulin Ratio 0.7 (1.1-1.8); Alkaline Phosphatase 58 U/L (45-117); Anion Gap 6.6 mEq/L (5.0-15.0); BUN Blood Urea Nitrogen 9 mg/dL (7-18); Bicarbonate 27 mEq/L (21-32); Bilirubin Total 0.2 mg/dL (0.2-1.0); Globulin 3.7 g/dL (2.3-3.5); Glomerular Filtration Rate 103 ml/min (=/>90); Glucose Level 84 mg/dL (74-106); Potassium 3.6 mEq/L (3.5-5.1); Protein, Total 6.2 g/dL (6.4-8.2); Red Cell Distribution Width 21.8 % (12.1-15.2); Sodium Level 143 mEq/L (136-145)
== END 2023-08-05 21:55 | disposition left against medical advice (07) | DRG 101 ==
LOC: ER 16:18 → ERHOLD 20:20
PROVIDERS: ADMIT Internal Medicine; ATTEND Hospitalist
DX: G40.909 Epilepsy, unspecified, not intractable, without status epilepticus (principal); G93.40 Encephalopathy, unspecified; Z53.29 Procedure and treatment not carried out because of patient's decision for other reasons; I10 Essential (primary) hypertension; J44.9 Chronic obstructive pulmonary disease, unspecified; R47.81 Slurred speech; G89.29 Other chronic pain; R51.9 Headache, unspecified; E78.5 Hyperlipidemia, unspecified; Z86.73 Personal history of transient ischemic attack (TIA), and cerebral infarction without residual deficits; Z95.1 Presence of aortocoronary bypass graft; Z88.0 Allergy status to penicillin; Z88.6 Allergy status to analgesic agent; Z82.0 Family history of epilepsy and other diseases of the nervous system; Z82.49 Family history of ischemic heart disease and other diseases of the circulatory system; Z83.3 Family history of diabetes mellitus
CPT/HCPCS: 36415; 70450; 71045; 74177; 80048; 80053; 80164; 81001; 82947; 83605; 83690; 84484; 85025; 85610; 85730; 86140; 87040; 87804; 93005; 96360; 96361; 96365; 96375; 99285; J0696; J1953; J2405; J3360; J7030; J7040; Q9967

== ENCOUNTER 2023-08-06 20:34 | Observation (INO) | payer OTHER ==
[2023-08-06] MEDS ORDERED: CEFTRIAXONE 1000 MG/VIAL ONE (21:20)
[2023-08-06] MEDS ORDERED: FAMOTIDINE 20 MG/2 ML VIAL IV ONE (21:20)
[2023-08-06] MEDS ORDERED: LEVETIRACETAM 500 MG/5 ML VIAL IV ONE (21:20)
[2023-08-06] MEDS ORDERED: ACETAMINOPHEN 325 MG TABLET ONE (21:50)
[2023-08-06] MEDS ORDERED: ONDANSETRON 4 MG/2 ML VIAL ONE ×2 (21:50→23:59)
[2023-08-06 21:55] LABS: Absolute Eosinophils 0.1 K/uL (0-0.5); Absolute Lymphocytes (CBC) 1.7 K/uL (0.7-4.9); Absolute Monocytes 0.6 K/uL (0.1-1.3); Absolute Neutrophil 4.1 K/uL (1.8-8.0); Basophils % 0.2 % (0-1.3); Hematocrit 35.4 % (39.6-49.0); Hemoglobin 11.6 g/dL (13.6-17.9); Lymphocytes % 26.2 % (15.3-44.8); MCH 27.3 pg (27.0-35.0); MCHC 32.8 g/dL (32.0-36.0); MCV 83.3 fL (80-100); MPV 8.9 fL (7.6-11.3); Monocytes % 9.4 % (3.3-12.3); Neutrophils % 62.2 % (41.7-73.7); Platelets 296 thou/uL (152-406); RBC Red Blood Cell Count 4.25 M/uL (4.33-5.43); Red Cell Distribution Width 21.5 % (12.1-15.2)
[2023-08-06 22:01] LABS: ALT/SGPT 11 U/L (16-61); AST/SGOT 10 U/L (15-37); Albumin 3.1 g/dL (3.4-5.0); Albumin/Globulin Ratio 0.7 (1.1-1.8); Alkaline Phosphatase 69 U/L (45-117); Anion Gap 8.3 mEq/L (5.0-15.0); BUN Blood Urea Nitrogen 10 mg/dL (7-18); Bicarbonate 29 mEq/L (21-32); Bilirubin Total 0.2 mg/dL (0.2-1.0); Globulin 4.2 g/dL (2.3-3.5); Glomerular Filtration Rate 94 ml/min (=/>90); Glucose Level 95 mg/dL (74-106); Lipase 31 U/L (13-75); Magnesium 2.3 mg/dL (1.6-2.4); NT PRO-BNP 434 pg/mL (<125); Potassium 4.3 mEq/L (3.5-5.1); Protein, Total 7.3 g/dL (6.4-8.2); Sodium Level 141 mEq/L (136-145); Troponin High Sensitivity 12.5 pg/mL (<58.9); Valproic Acid (Depakene) Level 32.9 mcg/mL (50.0-100.0)
[2023-08-06 22:02] LABS: Bilirubin Direct < 0.1 mg/dL (0-0.2); Bilirubin Indirect, Calculated ND mg/dL (0.2-0.8)
[2023-08-06 22:19] LABS: Specific Gravity > 1.030 (1.005-1.030); Sqamous Epithelial None Seen /HPF (None Seen); Urine Bacteria None Seen /HPF (<20); Urine Bilirubin NEGATIVE (Negative); Urine Blood Trace (Negative); Urine Clarity Clear (Clear); Urine Color Yellow (Yellow); Urine Crystals Unidentified Few /HPF (None Seen); Urine Culture Reflex Order NOT NEEDED; Urine Glucose NEGATIVE (Negative); Urine Ketones TRACE (Negative); Urine Microscopic Reflex YN ORDER UMIC; Urine Mucus Slight /HPF (None Seen); Urine Nitrite NEGATIVE (Negative); Urine Protein 1+ (Negative); Urine Urobilinogen 1+ (Normal); Urine WBC <5 /HPF (<5); Urine pH 7.5 (5.0-7.0)
--- NOTE | 2023-08-06 22:32 | RAD REPORT ---
EXAM DESCRIPTION: Olivia Single View08/06/2023 9:41 pm CLINICAL HISTORY: cough COMPARISON: August 05, 2023 FINDINGS: The lungs appear clear of acute infiltrate. The heart is mildly enlarged Postsurgical changes chest IMPRESSION: No acute abnormalities displayed
[2023-08-06] MEDS ORDERED: LORazepam 2 MG/ML VIAL ONE (22:38)
[2023-08-06 22:39] LABS: SARS-CoV-2 Antigen CONTROL BLUE LINE VIS/BG OK
[2023-08-06 22:40] LABS: SARS-CoV-2 Antigen Rapid Res Negative (Negative)
[2023-08-06 22:45] LABS: Arterial Blood Carboxyhemoglob 4.1 % (0-1.5); Blood Gas Oxyhemoglobin 90.2 % (94-97); Blood Gas THB 11.1 g/dl (12-18); Blood O2 Saturation 95.7 % (92-98.5)
[2023-08-06 23:12] LABS: Anisocytosis 1+; Blood Morphology Comment NOTED (NOT SEEN); Platelet Estimate ADEQ; White Blood Cell Scan OK (OK)
[2023-08-06] MEDS ORDERED: FENTANYL CITR 100 MCG/2 ML ONE (23:59)
--- NOTE | 2023-08-07 | EDPHYS ---
Physician Documentation [facility] Name: Bryan Graf Age: 72 yrs Sex: Male : 1950 Arrival Date: 08/06/2023 Time: 20:34 Bed 2 Private MD: ED Physician Luis Eduardo Stover HPI: 08/05 21:20 This 72 yrs old Male presents to ER via EMS with complaints of Altered Mental nicolette Status. 21:20 The patient presents with confusion, decreased mental status, decreased responsiveness. nicolette Onset: The symptoms/episode began/occurred 2 day(s) ago. Possible causes: CVA or TIA, drug use, alcohol, head injury, low blood sugar, seizure, sepsis. Associated signs and symptoms: Pertinent positives: combativeness, confusion. Current symptoms: In the emergency department the patient's symptoms are unchanged from the initial presentation, despite home interventions. Patient's baseline: Neuro: alert and fully oriented. The patient has experienced similar episodes in the past, several times. Historical: - Allergies: 20:46 Aspirin; bm8 20:46 PENICILLINS; bm8 - Home Meds: 20:46 divalproex 250 mg Oral tablet [Active]; Keppra 1 Oral tablet 1 tab 2 times per day bm8 [Active]; - PMHx: 20:46 Chronic pain; COPD; CVA; Hypertension; Migraine; Pneumonia; Seizures; swelling and pain bm8 to L lower leg; - PSHx: 20:46 back surgery; Right hip surgery; heart surgery; bm8 - Immunization history:: Adult Immunizations unknown. - Infectious Disease History:: Denies. - Social history:: Smoking status: Patient reports the use of cigarette tobacco products, unknown amount. ROS: 21:21 Constitutional: Negative for fever, chills, and weight loss, Eyes: Negative for injury, nicolette pain, redness, and discharge, ENT: Negative for injury, pain, and discharge, Neck: Negative for injury, pain, and swelling, Cardiovascular: Negative for chest pain, palpitations, and edema, Respiratory: Negative for shortness of breath, cough, wheezing, and pleuritic chest pain, Abdomen/GI: Negative for abdominal pain, nausea, vomiting, diarrhea, and constipation, Back: Negative for injury and pain, : Negative for injury, bleeding, discharge, and swelling, MS/Extremity: Negative for injury and deformity, Skin: Negative for injury, rash, and discoloration, Psych: Negative for depression, anxiety, suicide ideation, homicidal ideation, and hallucinations, Allergy/Immunology: Negative for hives, rash, and allergies, Endocrine: Negative for neck swelling, polydipsia, polyuria, polyphagia, and marked weight changes, Hematologic/Lymphatic: Negative for swollen nodes, abnormal bleeding, and unusual bruising, 21:21 Neuro: Positive for altered mental status, weakness, Exam: 21:21 Constitutional: This is a well developed, well nourished patient who is awake, alert, nicolette and in no acute distress. Head/Face: Normocephalic, atraumatic. Eyes: Pupils equal round and reactive to light, extra-ocular motions intact. Lids and lashes normal. Conjunctiva and sclera are non-icteric and not injected. Cornea within normal limits. Periorbital areas with no swelling, redness, or edema. ENT: Nares patent. No nasal discharge, no septal abnormalities noted. Tympanic membranes are normal and external auditory canals are clear. Oropharynx with no redness, swelling, or masses, exudates, or evidence of obstruction, uvula midline. Mucous membranes moist. Neck: Trachea midline, no thyromegaly or masses palpated, and no cervical lymphadenopathy. Supple, full range of motion without nuchal rigidity, or vertebral point tenderness. No Meningismus. Chest/axilla: Normal chest wall appearance and motion. Nontender with no deformity. No lesions are appreciated. Cardiovascular: Regular rate and rhythm with a normal S1 and S2. No gallops, murmurs, or rubs. Normal PMI, no JVD. No pulse deficits. Respiratory: Lungs have equal breath sounds bilaterally, clear to auscultation and percussion. No rales, rhonchi or wheezes noted. No increased work of breathing, no retractions or nasal flaring. Abdomen/GI: Soft, non-tender, with normal bowel sounds. No distension or tympany. No guarding or rebound. No evidence of tenderness throughout. Back: No spinal tenderness. No costovertebral tenderness. Full range of motion. Male : Normal genitalia with no discharge or lesions. Skin: Warm, dry with normal turgor. Normal color with no rashes, no lesions, and no evidence of cellulitis. MS/ Extremity: Pulses equal, no cyanosis. Neurovascular intact. Full, normal range of motion. Psych: Awake, alert, with orientation to person, place and time. Behavior, mood, and affect are within normal limits. 21:21 Neuro: Orientation: to person, Not oriented to place, time, situation, Mentation: slow to respond, Memory: unable to test, Cranial nerves: Cerebellar function: unable to test, Sensation: no obvious gross deficits, Gait: not tested. seizure activity, is not displayed by the patient, 21:25 ECG was reviewed by the Attending Physician. nicolette Vital Signs: 20:45 BP 131 / 74; Pulse 71; Resp 16; Temp 98.2; Pulse Ox 99% on R/A; Pain 8/10; bm8 21:30 BP 138 / 80; Pulse 65; Resp 17; Temp 98.2; Pulse Ox 98% on R/A; Pain 7/10; bm8 22:05 BP 104 / 57; Pulse 63; Resp 17; Temp 98.2; Pulse Ox 97% on R/A; Pain 8/10; bm8 23:52 BP 133 / 88; Pulse 73; Resp 18; Temp 98.2; Pulse Ox 99% ; Pain 7/10; bm8 08/06 01:32 BP 146 / 70; Pulse 60; Resp 17; Temp 97.8; Pulse Ox 97% on R/A; Pain 5/10; bm8 08/05 20:45 Pain Scale: Adult bm8 21:30 Pain Scale: Adult bm8 22:05 Pain Scale: Adult bm8 23:52 Pain Scale: Adult bm8 08/06 01:32 Pain Scale: Adult bm8 NIH Stroke Scale Scores: 08/05 21:37 NIHSS Score: 0 bm8 [facility] Coma Score: 20:51 Eye Response: to voice(3). Motor Response: obeys commands(6). Verbal Response: bm8 confused(4). Total: 13. 22:05 Eye Response: spontaneous(4). Motor Response: obeys commands(6). Verbal Response: bm8 oriented(5). Total: 15. 23:52 Eye Response: spontaneous(4). Motor Response: obeys commands(6). Verbal Response: bm8 oriented(5). Total: . 08/06 01:32 Eye Response: spontaneous(4). Motor Response: obeys commands(6). Verbal Response: bm8 oriented(5). Total: 15. MDM: 08/05 20:41 Patient medically screened. [facility] 21:24 Differential Diagnosis altered mental status, sepsis, flu. Differential Diagnosis: CVA, nicolette electrolyte abnormality, alcohol intoxication, hypoglycemia, intracranial bleed, meningitis, overdose, pneumonia, seizure, sepsis, TIA, UTI, volume depletion. Data reviewed: vital signs, nurses notes, EMS record, lab test result(s), EKG, radiologic studies, CT scan, plain films. Consideration of Admission/Observation Patient was admitted/placed on observation. Escalation of care including admission/observation considered. I considered the following discharge prescriptions or medication management in the emergency department Medications were administered in the Emergency Department. See MAR. Test considered but Not performed: MRI: no mri brain. Care significantly affected by the following chronic conditions: Diabetes, Hypertension, Chronic Obstructive Pulmonary Disease, cva, seizures, migraines, chronic pain. 08/05 21:15 Order name: Basic Metabolic Panel; Complete Time: 22:32 [facility] 08/05 21:15 Order name: CBC with Diff; Complete Time: 23:38 [facility] 08/05 21:15 Order name: LFT's; Complete Time: 22:32 [facility] 08/05 21:15 Order name: Magnesium; Complete Time: 22:32 [facility] 08/05 21:15 Order name: NT PRO-BNP; Complete Time: 22:32 [facility] 08/05 21:15 Order name: PT-INR 08/05 21:15 Order name: Troponin HS; Complete Time: 22:32 [facility] 08/05 21:15 Order name: Lipase; Complete Time: 22:32 [facility] 08/05 21:15 Order name: Blood Culture Adult (2) nicolette 08/05 21:15 Order name: Lactate w/ 2H reflex if indic.; Complete Time: 22:32 [facility] 08/05 21:15 Order name: Depakote; Complete Time: 22:32 [facility] 08/05 21:15 Order name: Urinalysis w/ reflexes; Complete Time: 22:32 [facility] 08/05 21:15 Order name: Flu [facility] 08/05 21:15 Order name: SARS RAPID; Complete Time: 23:02 [facility] 08/05 22:19 Order name: CBC Smear Scan; Complete Time: 23:38 [facility]MS 08/05 22:41 Order name: ABG Arterial Blood Gas; Complete Time: 23:02 [facility] 08/06 00:36 Order name: CBC with Automated Diff [facility] 08/06 00:36 Order name: CBC with Automated Diff [facility] 08/06 00:36 Order name: Comprehensive Metabolic Panel [facility] 08/06 00:36 Order name: Comprehensive Metabolic Panel [facility] 08/06 00:36 Order name: Troponin High Sensitivity [facility] 08/06 00:36 Order name: Troponin High Sensitivity [facility] 08/06 00:36 Order name: Urine Drug Screen [facility] 08/05 21:15 Order name: XRAY Chest (1 view); Complete Time: 23:02 [facility] 08/05 23:12 Order name: Head C Spine Cap Wo Con [facility] 08/06 00:36 Order name: Brain With Cont [facility]KS 08/05 21:15 Order name: EKG; Complete Time: 21:16 [facility] 08/06 00:36 Order name: CONS Physician Consult [facility]KS 08/05 21:15 Order name: Cardiac monitoring; Complete Time: 21:18 [facility] 08/05 21:15 Order name: EKG - Nurse/Tech; Complete Time: 21:18 [facility] 08/05 21:15 Order name: IV Saline Lock; Complete Time: 21:18 [facility] 08/05 21:15 Order name: Labs collected and sent; Complete Time: 21:18 [facility] 08/05 21:15 Order name: O2 Per Protocol; Complete Time: 21:18 [facility] 08/05 21:15 Order name: O2 Sat Monitoring; Complete Time: 21:18 [facility] EC:25 Rate is 71 beats/min. Rhythm is regular. QRS Wells is Normal. OH interval is prolonged [facility] at 248 msec. QRS interval is normal. QT interval is normal. No Q waves. T waves are Normal. No ST changes noted. Clinical impression: NSR w/ Non-specific ST/T Changes, 1st degree heart block, and No evidence of ischemia. Interpreted by me. Reviewed by me. Administered Medications: 21:36 Drug: Rocephin IV 1 grams IV at per protocol once; Given slow IV push per pharmacy bm8 instructions Route: IV; Rate: per protocol; Site: left forearm; 23:56 Follow up: Response: No adverse reaction; IV Status: Completed infusion bm8 21:37 Drug: Keppra IV 1000 mg IV at per protocol once Route: IV; Rate: per protocol; Site: bm8 left forearm; 23:57 Follow up: Response: No adverse reaction; IV Status: Completed infusion bm8 21:37 Drug: Famotidine IVP 20 mg IVP once; dilute with 10 mL 0.9% NaCl; give over 2 minutes bm8 Route: IVP; Site: left forearm; 23:57 Follow up: Response: No adverse reaction bm8 21:55 Drug: Ondansetron IVP 4 mg IVP once; over 2 minutes Route: IVP; Site: left forearm; bm8 23:56 Follow up: Response: No adverse reaction bm8 21:55 Drug: Acetaminophen PO 650 mg PO once; 650 Route: PO; bm8 23:56 Follow up: Response: No adverse reaction bm8 22:43 Drug: Ativan IVP 1 mg IVP once Route: IVP; Site: left forearm; km8 23:56 Follow up: Response: No adverse reaction bm8 08/06 00:05 Drug: fentaNYL (PF) IVP 50 mcg IVP once Route: IVP; Site: left forearm; bm8 00:49 Follow up: Response: No adverse reaction bm8 00:05 Drug: Ondansetron IVP 4 mg IVP once; over 2 minutes Route: IVP; Site: left forearm; bm8 00:49 Follow up: Response: No adverse reaction bm8 00:19 Drug: Depacon IV 500 mg 5 ml IV at calculated rate once Volume: 5 ml; Route: IV; Rate: bm8 calculated rate; Site: left forearm; 00:49 Follow up: Response: No adverse reaction; IV Status: Completed infusion; IV Intake: bm8 100ml Disposition Summary: 08/07/23 00:00 Hospitalization Ordered Notes: Hospitalization Status: Observation nicolette Provider: Lincoln Ho cha Location: Telemetry/MedSurg (observation) nicolette Condition: Fair nicolette Problem: new nicolette Symptoms: have improved nicolette Bed/Room Type: Standard nicolette Room Assignment: [id number](08/07/23 00:53) kl Diagnosis - Altered mental status, unspecified - post ictal nicolette - Epileptic seizures related to external causes, not intractable nicolette - Epileptic seizures related to external causes, not intractable, without status nicolette epilepticus - COPD/ Chronic obstructive pulmonary disease, unspecified nicolette - Weakness nicolette Forms: - Medication Reconciliation Form nicolette - SBAR form nicolette - Leadership Thank You Letter nicolette NIH Stroke Scale - NIH Stroke Score Date: 08/06/2023 Time: 21:37 Total Score = 0 10. Dysarthria (speech clarity - read or repeat words) - 0(Normal) 11. Extinction and Inattention (visual/tactile/auditory/spatial/personal) - 0(No abnormality) 1a. Level of Consciousness (LOC) - 0(Alert) 1b. Level of Consciousness (LOC) (Month \T\ Age) - 0(Both) 1c. LOC Commands (Open \T\ Closes Eyes/Band Sawing Machine Operator) - 0(Both) 2. Best Gaze (Lateral Gaze Paresis) - 0(Normal) 3. Visual Field Loss - 0(No visual loss) 4. Facial Palsy - 0(Normal) 5a. Left Arm: Motor (10-second hold) - 0(No drift) 5b. Right Arm: Motor (10-second hold) - 0(No drift) 6a. Left Leg: Motor (5-second hold - always test supine) - 0(No drift) 6b. Right Leg: Motor (5-second hold - always test supine) - 0(No drift) 7. Limb Ataxia (finger/nose \T\ heel/arce - test with eyes open) - 0(Absent) 8. Sensory Loss (pinprick arms/legs/face) - 0(Normal) 9. Best Language: Aphasia (description/naming/reading) - 0(No aphasia) Initials: bm8 Signatures: Dispatcher [employer] EDMS Shanel Zuniga, Luis Eduardo Martinez RN, MD MD cha Marx, Katie, JOSEPH RUIZ [id number] Lito Woo RN RN bm8 Corrections: (The following items were deleted from the chart) 08/05 21:16 21:15 BASIC METABOLIC PANEL+C.LAB.BRZ ordered. EDMS EDMS 21:16 21:15 CBC+H.LAB.BRZ ordered. EDMS EDMS 21:16 21:15 HEPATIC FUNCTION+C.LAB.BRZ ordered. EDMS EDMS 21:16 21:15 MAGNESIUM+C.LAB.BRZ ordered. EDMS EDMS 21:16 21:15 PROBNP+C.LAB.BRZ ordered. EDMS EDMS 21:16 21:15 PROTIME (+INR)+COAG.LAB.BRZ ordered. EDMS EDMS 21:16 21:15 Troponin High Sensitivity+C.LAB.BRZ ordered. EDMS EDMS 21:16 21:15 LIPASE+C.LAB.BRZ ordered. EDMS EDMS 21:16 21:15 BLOOD CULTURE*+BA.LAB.BRZ ordered. EDMS EDMS 21:16 21:15 LACTATE+C.LAB.BRZ ordered. EDMS EDMS 21:16 21:15 VALPROIC ACID (DEPAKOTE)+C.LAB.BRZ ordered. EDMS EDMS 21:16 21:15 Urinalysis+U.LAB.BRZ ordered. EDMS EDMS 21:16 21:15 Influenza Screen (A \T\ B)+BA.LAB.BRZ ordered. EDMS EDMS 21:16 21:15 SARS-COV-2 Antigen Rapid+I.LAB.BRZ ordered. EDMS EDMS 22:20 21:16 Head C Spine Cap Wo Con+CT.RAD.BRZ ordered. EDMS EDMS 08/06 00:53 00:00 nicolette [address]
--- NOTE | 2023-08-07 | ER ---
Nurse's Notes [facility] Name: Bryan Graf Age: 72 yrs Sex: Male : 1950 Arrival Date: 08/06/2023 Time: 20:34 Bed 2 Private MD: Diagnosis: Altered mental status, unspecified-post ictal;Epileptic seizures related to external causes, not intractable;Epileptic seizures related to external causes, not intractable, without status epilepticus;COPD/ Chronic obstructive pulmonary disease, unspecified;Weakness Presentation: 08/05 20:44 Chief complaint: Patient states: "my head hurts" EMS states: that pt my have had bm8 another unwitnessed seizure. found on floor at home. 20:45 Coronavirus screen: At this time, the client does not indicate any symptoms associated bm8 with coronavirus-19. Ebola Screen: Patient negative for fever greater than or equal to 101.5 degrees Fahrenheit, and additional compatible Ebola Virus Disease symptoms Patient denies exposure to infectious person. Patient denies travel to an Ebola-affected area in the 21 days before illness onset. No symptoms or risks identified at this time. Initial Sepsis Screen: Does the patient meet any 2 criteria? No. Patient's initial sepsis screen is negative. Does the patient have a suspected source of infection? No. Patient's initial sepsis screen is negative. Risk Assessment: Do you want to hurt yourself or someone else? Patient reports no desire to harm self or others. Onset of symptoms is unknown. 20:45 Method Of Arrival: EMS: [facility] bm8 20:45 Acuity: GELACIO 2 bm8 Triage Assessment: 20:46 General: Appears in no apparent distress. uncomfortable, Behavior is calm. Pain: bm8 Complains of pain in right eye and right cheek, with head pain Pain does not radiate. Quality of pain is described as aching. EENT: No deficits noted. No signs and/or symptoms were reported regarding the EENT system. Neuro: Level of Consciousness is awake, alert, obeys commands, Oriented to person, situation, Seizure activity Patient is post-ictal at this time. Cardiovascular: No deficits noted. Heart tones S1 S2 present Capillary refill < 3 seconds Patient's skin is warm and dry. Respiratory: No deficits noted. Airway is patent Trachea midline Respiratory effort is even, unlabored, Respiratory pattern is regular, symmetrical, Breath sounds are clear bilaterally. GI: No deficits noted. No signs and/or symptoms were reported involving the gastrointestinal system. : No deficits noted. No signs and/or symptoms were reported regarding the genitourinary system. Derm: No signs and/or symptoms reported regarding the dermatologic system. Musculoskeletal: Swelling present in right cheek. Historical: - Allergies: 20:46 Aspirin; bm8 20:46 PENICILLINS; bm8 - Home Meds: 20:46 divalproex 250 mg Oral tablet [Active]; Keppra 1 Oral tablet 1 tab 2 times per day bm8 [Active]; - PMHx: 20:46 Chronic pain; COPD; CVA; Hypertension; Migraine; Pneumonia; Seizures; swelling and pain bm8 to L lower leg; - PSHx: 20:46 back surgery; Right hip surgery; heart surgery; bm8 - Immunization history:: Adult Immunizations unknown. - Infectious Disease History:: Denies. - Social history:: Smoking status: Patient reports the use of cigarette tobacco products, unknown amount. Screenin:51 [facility] ED Fall Risk Assessment (Adult) History of falling in the last 3 months, bm8 including since admission Yes- fall prone (multiple falls) (3 pts) Confusion or Disorientation Yes (5 pts) Intoxicated or Sedated No (0 pts) Impaired Gait Yes (1 pt) Mobility Assist Device Used No (0 pt) Altered Elimination No (0 pt) Score/Fall Risk Level 3 or more points = High Risk Oriented to surroundings, Maintained a safe environment, Educated pt \\T\\ family on fall prevention, incl call for assistance when getting out of bed. Abuse screen: Denies threats or abuse. Nutritional screening: No deficits noted. Tuberculosis screening: No symptoms or risk factors identified. 21:37 [place] Swallow Protocol Exclusion Criteria: Exclusion Criteria Result: Proceed Brief bm8 Cognitive Screen What is your name? Normal, Where are you right now? Normal, What year is it? Normal. Oral Mechanism Examination Facial Symmetry: Normal, Motion: Normal, Lip Closure: Normal, Oral Mechanism Result: Normal. 3 oz Water Swallow Challenge: Pt able to drink all water without stopping, coughing, choking or throat clearing: Yes Result: PASS. Assessment: 20:51 Reassessment: see triage assessment. bm8 22:05 Reassessment: Patient appears in no apparent distress at this time. Patient and/or bm8 family updated on plan of care and expected duration. Pain level reassessed. Patient is alert, oriented x 3, equal unlabored respirations, skin warm/dry/pink. General: Appears uncomfortable, unkempt, malnourished, Behavior is cooperative. Pain: Complains of pain in head Pain does not radiate. Pain currently is 8 out of 10 on a pain scale. Quality of pain is described as aching. Neuro: Level of Consciousness is awake, alert, obeys commands, Oriented to person, place, time, situation, Appropriate for age. Cardiovascular: Capillary refill < 3 seconds Patient's skin is warm and dry. Respiratory: Airway is patent Respiratory effort is even, unlabored, Respiratory pattern is regular, symmetrical. GI: No deficits noted. No signs and/or symptoms were reported involving the gastrointestinal system. 23:52 Reassessment: Patient appears in no apparent distress at this time. Patient and/or bm8 family updated on plan of care and expected duration. Pain level reassessed. Patient is alert, oriented x 3, equal unlabored respirations, skin warm/dry/pink. Patient states feeling better. General: Appears in no apparent distress. uncomfortable, Behavior is calm, cooperative, appropriate for age. Pain: Complains of pain in head Pain does not radiate. Pain currently is 7 out of 10 on a pain scale. Quality of pain is described as aching. Neuro: Level of Consciousness is awake, alert, obeys commands, Oriented to person, place, time, situation, Appropriate for age Reports headache. Cardiovascular: No deficits noted. Capillary refill < 3 seconds Patient's skin is warm and dry. Respiratory: Airway is patent Respiratory effort is even, unlabored, Respiratory pattern is regular, symmetrical. GI: No deficits noted. No signs and/or symptoms were reported involving the gastrointestinal system. 08/06 01:32 Reassessment: Patient appears in no apparent distress at this time. No changes from 8 previously documented assessment. Patient and/or family updated on plan of care and expected duration. Pain level reassessed. Patient is alert, oriented x 3, equal unlabored respirations, skin warm/dry/pink. Patient states feeling better. 01:40 Reassessment: called to inform about pts condition. [facility] Vital Signs: 08/05 20:45 BP 131 / 74; Pulse 71; Resp 16; Temp 98.2; Pulse Ox 99% on R/A; Pain 8/10; bm8 21:30 BP 138 / 80; Pulse 65; Resp 17; Temp 98.2; Pulse Ox 98% on R/A; Pain 7/10; bm8 22:05 BP 104 / 57; Pulse 63; Resp 17; Temp 98.2; Pulse Ox 97% on R/A; Pain 8/; bm8 23:52 BP 133 / 88; Pulse 73; Resp 18; Temp 98.2; Pulse Ox 99% ; Pain 7/10; bm8 08/06 01:32 BP 146 / 70; Pulse 60; Resp 17; Temp 97.8; Pulse Ox 97% on R/A; Pain 5/10; bm8 08/05 20:45 Pain Scale: Adult bm8 21:30 Pain Scale: Adult bm8 22:05 Pain Scale: Adult bm8 23:52 Pain Scale: Adult bm8 08/06 01:32 Pain Scale: Adult bm8 Natalie Coma Score: 08/05 20:51 Eye Response: to voice(3). Motor Response: obeys commands(6). Verbal Response: bm8 confused(4). Total: 13. 22:05 Eye Response: spontaneous(4). Motor Response: obeys commands(6). Verbal Response: bm8 oriented(5). Total: 15. 23:52 Eye Response: spontaneous(4). Motor Response: obeys commands(6). Verbal Response: bm8 oriented(5). Total: 15. 08/06 01:32 Eye Response: spontaneous(4). Motor Response: obeys commands(6). Verbal Response: bm8 oriented(5). Total: 15. NIH Stroke Scale Scores: 08/05 21:37 NIHSS Score: 0 bm8 ED Course: 20:37 Patient arrived in ED. cm10 20:40 Initial lab(s) drawn, by ED staff, sent to lab. First set of blood cultures drawn by ED 8 staff. 20:40 Straight cath inserted, using sterile technique, 20 Fr. Specimen obtained. Returned bm8 nigel urine. Patient tolerated well. 20:41 Luis Eduardo Stover MD is Attending Physician. [facility] 20:44 iLto Woo, JOSEPH is Primary Nurse. bm8 20:46 Triage completed. bm8 20:46 Arm band placed on right wrist. Patient placed in an exam room, on a stretcher, in view bm8 of staff members, on playground monitor, on pulse oximetry. EKG completed in triage. Results shown to MD. EKG done per protocol. Performed by ED Staff. Shown to ED physician. Urine obtained. Labs ordered per protocol. Drawn by ED staff. 20:51 Patient has correct armband on for positive identification. Placed in gown. Bed in low bm8 position. Call light in reach. Side rails up X2. Seizure precautions initiated. Client placed on continuous cardiac and pulse oximetry monitoring. NIBP monitoring applied. manager monitoring on. Pulse ox on. NIBP on. Door closed. Noise minimized. Visitors limited. Verbal reassurance given. Head of bed elevated. 20:51 Missed attempt(s): 22 gauge in right wrist. Bleeding controlled, band aid applied, bm8 catheter tip intact. 20:51 Inserted saline lock: 18 gauge in left forearm, using aseptic technique. bm8 21:30 Second set of blood cultures drawn by ED staff, Urine collected: straight cath bm8 specimen, nigel colored, EKG done, by ED staff, reviewed by Luis Eduardo Stover MD. 21:43 XRAY Chest (1 view) In Process Unspecified. EDMS 22:05 No provider procedures requiring assistance completed. bm8 23:30 Head C Spine Cap Wo Con In Process Unspecified. EDMS 23:52 Provided Education on: need for admit. bm8 23:59 Lincoln Ho MD is Hospitalizing Provider. [facility] 08/06 01:32 Patient admitted, IV remains in place. bm8 Administered Medications: 08/05 21:36 Drug: Rocephin IV 1 grams IV at per protocol once; Given slow IV push per pharmacy bm8 instructions Route: IV; Rate: per protocol; Site: left forearm; 23:56 Follow up: Response: No adverse reaction; IV Status: Completed infusion bm8 21:37 Drug: Keppra IV 1000 mg IV at per protocol once Route: IV; Rate: per protocol; Site: bm8 left forearm; 23:57 Follow up: Response: No adverse reaction; IV Status: Completed infusion bm8 21:37 Drug: Famotidine IVP 20 mg IVP once; dilute with 10 mL 0.9% NaCl; give over 2 minutes bm8 Route: IVP; Site: left forearm; 23:57 Follow up: Response: No adverse reaction bm8 21:55 Drug: Ondansetron IVP 4 mg IVP once; over 2 minutes Route: IVP; Site: left forearm; bm8 23:56 Follow up: Response: No adverse reaction bm8 21:55 Drug: Acetaminophen PO 650 mg PO once; 650 Route: PO; bm8 23:56 Follow up: Response: No adverse reaction bm8 22:43 Drug: Ativan IVP 1 mg IVP once Route: IVP; Site: left forearm; km8 23:56 Follow up: Response: No adverse reaction bm8 08/06 00:05 Drug: fentaNYL (PF) IVP 50 mcg IVP once Route: IVP; Site: left forearm; bm8 00:49 Follow up: Response: No adverse reaction bm8 00:05 Drug: Ondansetron IVP 4 mg IVP once; over 2 minutes Route: IVP; Site: left forearm; bm8 00:49 Follow up: Response: No adverse reaction bm8 00:19 Drug: Depacon IV 500 mg 5 ml IV at calculated rate once Volume: 5 ml; Route: IV; Rate: bm8 calculated rate; Site: left forearm; 00:49 Follow up: Response: No adverse reaction; IV Status: Completed infusion; IV Intake: bm8 100ml Medication: 08/05 20:51 VIS not applicable for this client. bm8 Intake: 08/06 00:49 IV: 100ml; Total: 100ml. bm8 Outcome: 00:00 Decision to Hospitalize by Provider. nicolette 01:32 Admitted to Tele accompanied by nurse, via stretcher, room 423, bm 01:32 Condition: stable 01:32 Instructed on the need for admit, Demonstrated understanding of instructions, 01:52 Patient left the ED. bm8 NIH Stroke Scale - NIH Stroke Score Date: 08/06/2023 Time: 21:37 Total Score = 0 10. Dysarthria (speech clarity - read or repeat words) - 0(Normal) 11. Extinction and Inattention (visual/tactile/auditory/spatial/personal) - 0(No abnormality) 1a. Level of Consciousness (LOC) - 0(Alert) 1b. Level of Consciousness (LOC) (Month \\T\\ Age) - 0(Both) 1c. LOC Commands (Open \\T\\ Closes Eyes/Social Worker Assistant) - 0(Both) 2. Best Gaze (Lateral Gaze Paresis) - 0(Normal) 3. Visual Field Loss - 0(No visual loss) 4. Facial Palsy - 0(Normal) 5a. Left Arm: Motor (10-second hold) - 0(No drift) 5b. Right Arm: Motor (10-second hold) - 0(No drift) 6a. Left Leg: Motor (5-second hold - always test supine) - 0(No drift) 6b. Right Leg: Motor (5-second hold - always test supine) - 0(No drift) 7. Limb Ataxia (finger/nose \\T\\ heel/arce - test with eyes open) - 0(Absent) 8. Sensory Loss (pinprick arms/legs/face) - 0(Normal) 9. Best Language: Aphasia (description/naming/reading) - 0(No aphasia) Initials: bm8 Signatures: Dispatcher [employer] EDMS Luis Eduardo Stover MD MD cha Martinez, Clarissa, RN RN cm10 Emra Valenzuela, JOSEPH RN km8 Lito Woo, RN RN bm8 Corrections: (The following items were deleted from the chart) 08/05 22:20 22:11 In radiology for Head C Spine Cap Wo Con+CT.RAD.BRZ. EDRI EDMS
[2023-08-07] MEDS ORDERED: VALPROATE NA 500 MG/5 ML INJ IV ONE ×2 (00:11→03:28)
[2023-08-07] MEDS ORDERED: NA CHLORIDE 0.9% 100 ML ONE (00:12)
--- NOTE | 2023-08-07 00:28 | P.HP ---
Certification for Inpatient Patient admitted to: Observation With expected LOS: <2 Midnights Patient will require the following post-hospital care: None Practitioner: I am a practitioner with admitting privileges, knowledge of patient current condition, hospital course, and medical plan of care. Services: Services provided to patient in accordance with Admission requirements found in Title 42 Section 412.3 of the Code of Federal Regulations Patient History Date of Service: 08/07/23 Reason for admission: Altered mental status History of Present Illness: 72-year-old male with history of CVA hypertension, seizure disorder on Depakote and now Keppra who presented yesterday for altered mental status, presumed due to postictal patient became more awake in the emergency room, initially planned to be admitted for MRI to rule out mass as well as a adjustment of her Depakote and Keppra level. Patient left AMA. His valproic acid level came back at 32.9. He states his last seizure before yesterday was over 6 years ago. He does not follow-up with any neurologist for follow-up with his regular PCP He presented again today because of sudden onset loss of consciousness and seizure activity this evening. He states he was walking towards the door then suddenly lost consciousness. Event was witnessed by the .postevent he became more drowsy and EMS had brought him to the emergency room he is more awake and conversant now willing to stay for full workup now. Laboratory workup today unremarkable. Allergies Penicillins Allergy (Severe, Verified 11/25/16 22:08) Anaphylaxis aspirin Adverse Reaction (Mild, Verified 11/25/16 22:08) Itching Home Medications: levETIRAcetam [Keppra*] 1,000 mg PO BID 11/27/15 Gabapentin 1 tab PO BID 09/22/20 Oxycodone HCl 1 tab PO QID PRN 09/22/20 - Past Medical/Surgical History Diabetic: No -: Previous CVA -: Previous TIA -: Seizure disorder -: Hyperlipidemia -: Chronic headaches -: Chronic back pain, DDD/DJD of the spine, 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 Mother -: Diabetes - Social History Smoking Status: Current every day smoker Smoking therapy provided: No Alcohol use: No CD- Drugs: No Caffeine use: Yes Place of Residence: Home Review of Systems 10-point ROS is otherwise unremarkable Physical Examination - Physical Exam General: Alert, In no apparent distress, Oriented x3 HEENT: Atraumatic, Normocephalic, PERRLA Neck: Supple, 2+ carotid pulse no bruit, JVD not distended Respiratory: Clear to auscultation bilaterally, Normal air movement Cardiovascular: No edema, Normal pulses, Regular rate/rhythm Gastrointestinal: Normal bowel sounds, Soft and benign, Non-distended Musculoskeletal: No clubbing, No contractures Neurological: Normal gait, Normal speech, Normal strength at 5/5 x4 extr, Normal tone, Sensation intact - Studies Laboratory Data (last 24 hrs) 08/06/23 08/06/23 21:24 21:24 WBC 6.60 Hgb 11.6 L Hct 35.4 L Plt Count 296 Sodium 141 Potassium 4.3 D BUN 10 Creatinine 0.77 Glucose 95 Magnesium 2.3 Total Bilirubin 0.2 AST 10 L ALT 11 L Alkaline Phosphatase 69 Lipase 31 Assessment and Plan - Problems (Diagnosis) (1) Altered mental status Onset Date: 02/23/15 Current Visit: No Status: Acute Qualifiers: (2) Coronary artery disease involving coronary bypass graft Current Visit: No Status: Acute (3) History of CVA (cerebrovascular accident) Current Visit: No Status: Acute - Plan Impression History of seizure disorder Postictal drowsinessimproved Hypertension History of CVA Plan Will admit patient to observation Given prior low valproic acid level from yesterday's lab, increase Depakote from 250 twice daily to 500 twice daily will continue home keppra dosage Depakote loading with 1 g today MRI of brain in a.m. to rule out any "pathology Neurology consult Gentle IV fluid Given patient insistent on leaving AMA and then coming back this evening will obtain urine drug screen Resume Keppra Lovenox for DVT prophylaxis - Advance Directives Does patient have a Living Will: No Does patient have a Durable POA for Healthcare: No
[2023-08-07] MEDS ORDERED: ALBUTEROL 2.5 MG/3 ML NEB SOL NEB PRN ×2 (00:29→16:42)
[2023-08-07] MEDS: VALPROATE SODIUM INJ 1,000 MG in NA CHLORIDE 0.9% 100 ML IV ONE (00:32)
[2023-08-07] MEDS: NA CHLORIDE 0.9% 1,000 ML IV SCH (01:00)
[2023-08-07] MEDS: MORPHINE 2 MG/ML SYR IV PRN ×2 (02:45→20:00)
[2023-08-07 03:25] VITALS: BMI 24.3
[2023-08-07] MEDS: NA CHLORIDE 0.9% 100 ML ONE (03:50)
[2023-08-07] MEDS: VALPROATE SODIUM INJ 500 MG in NA CHLORIDE 0.9% 100 ML IV ONE (03:50)
[2023-08-07 03:55] LABS: Barbiturates NEGATIVE (NEGATIVE); Benzodiazepines NEGATIVE (NEGATIVE); Cocaine NEGATIVE (NEGATIVE); METHAMPHETAM NEGATIVE (NEGATIVE); Methadone NEGATIVE (NEGATIVE); Opiates NEGATIVE (NEGATIVE); Phencyclidine NEGATIVE (NEGATIVE); THC Cannibis NEGATIVE (NEGATIVE)
[2023-08-07] MEDS: ONDANSETRON 4 MG/2 ML VIAL IV PRN ×2 (07:57→14:44)
[2023-08-07] MEDS: levETIRAcetam 500 MG TAB PO SCH (07:59)
[2023-08-07 08:52] LABS: PT Prothrombin Time 10.8 SECONDS (9.5-12.5); Protime INR 0.9
[2023-08-07] MEDS: ACETAMINOPHEN 500 MG TAB PO PRN (11:20)
[2023-08-07] MEDS: MORPHINE 4 MG/ML SYR IV PRN (12:44)
--- NOTE | 2023-08-07 13:09 | P.PN ---
Date of Service: 08/07/23 Pt brant nd examined. Pt is a 72 yo male who presents with AMS. Pt left AMA from the ER yesterday and later returned due to worsening of seizure activity and AMS. History of seizure disorder: Will continue keppra and depakote. Consulted Neurology. Pt was not compliant with AED. Will f/u MRI brain Postictal drowsiness: improving. Likely due to Siva paralysis. Will monitor. Non-compliance: Pt was encouraged to be compliant with home meds. Hypertension: Will continue home med. History of CVA: continue home med. DVT ppx: lovenox. Dispo: Pending hospital course.
--- NOTE | 2023-08-07 14:28 | RAD REPORT ---
EXAM DESCRIPTION: CT - Head C Spine Cap Wo Con - 08/07/2023 6:19 am CLINICAL HISTORY: PALPITATIONS. COMPARISON: None. TECHNIQUE: Single view AP chest radiograph(s). FINDINGS: No pulmonary infiltrate or edema identified. No pleural effusion. No pneumothorax. Nonenla rged cardiomediastinal silhouette. No significant osseous abnormality. IMPRESSION: No acute cardiopulmonary abnormality identified by radiograph. Electronically signed by: Sania Sanabria MD 08/06/2023 11:40 PM CDT Due to temporary technical issues with the PACS/Fluency reporting system, reports are being signed by the in house radiologists without review as a courtesy to insure prompt reporting. The interpreting radiologist is fully responsible for the content of the report
[2023-08-07] MEDS: LORazepam 2 MG/ML VIAL IV ONE (17:20)
--- NOTE | 2023-08-07 19:56 | RAD REPORT ---
EXAM DESCRIPTION: MRI - Brain W/Wo Cont - 08/07/2023 6:16 pm CLINICAL HISTORY: AMS. History of migraines and CVA COMPARISON: Brain MRI 05/21/2022. Head CT 08/06/2023 TECHNIQUE: Multiplanar multisequence MRI of the brain performed before and after intravenous adminis tration of 18 mL MultiHance. FINDINGS: Motion artifact somewhat limits evaluation, despite attempts at repeat imaging. No evidence of acute infarct or other diffusion signal abnormality. No evidence of acute intracranial hemorrhage or abnormal extra-axial fluid collections. Moderate diffuse parenchymal volume loss. Ventricular caliber otherwise within normal for age. [place] e structures are unremarkable. Scattered periventricular and deep white matter T2/FLAIR hyperintensities, nonspecific, but suggestiv e of chronic small vessel ischemic changes. No mass effect or midline shift. No abnormal enhancement. Major vascular flow voids are preserved. Mastoid air cells and paranasal sinuses are clear. IMPRESSION: No acute intracranial process. No evidence of abnormal enhancement or mass effect. Stable chronic findings including diffuse parenchymal volume loss and nonspecific white matter T2 hyp erintensities, suggestive of chronic small vessel ischemic changes.
[2023-08-07] MEDS: DIVALPROEX ER 250 MG TAB PO SCH (20:00)
[2023-08-08 07:07] LABS: Absolute Basophils 0.1 K/uL (0-0.5); Absolute Eosinophils 0.2 K/uL (0-0.5); Absolute Lymphocytes (CBC) 1.9 K/uL (0.7-4.9); Absolute Monocytes 0.7 K/uL (0.1-1.3); Absolute Neutrophil 4.2 K/uL (1.8-8.0); Basophils % 1.1 % (0-1.3); Eosinophils % 2.4 % (0-4.4); Hematocrit 35.5 % (39.6-49.0); Hemoglobin 11.6 g/dL (13.6-17.9); Lymphocytes % 26.8 % (15.3-44.8); MCH 27.2 pg (27.0-35.0); MCHC 32.5 g/dL (32.0-36.0); MCV 83.5 fL (80-100); MPV 8.5 fL (7.6-11.3); Monocytes % 10.3 % (3.3-12.3); Neutrophils % 59.4 % (41.7-73.7); Platelets 302 thou/uL (152-406); RBC Red Blood Cell Count 4.26 M/uL (4.33-5.43); Red Cell Distribution Width 21.8 % (12.1-15.2)
[2023-08-08 07:28] LABS: Albumin 3.1 g/dL (3.4-5.0); Albumin/Globulin Ratio 0.7 (1.1-1.8); Anion Gap 8.1 mEq/L (5.0-15.0); Bilirubin Total 0.4 mg/dL (0.2-1.0); Globulin 4.5 g/dL (2.3-3.5); Potassium 4.1 mEq/L (3.5-5.1); Protein, Total 7.6 g/dL (6.4-8.2); Troponin High Sensitivity 19.2 pg/mL (<58.9)
[2023-08-08 11:02] VITALS: O2SAT 94
--- NOTE | 2023-08-08 12:03 | P.DS ---
Admission Date: 08/07/23 Discharge Date: 08/08/23 Disposition: ROUTINE DISCHARGE Discharge Condition: GOOD Reason for Admission: Altered mental status Brief History of Present Illness: 72-year-old male with history of CVA hypertension, seizure disorder on Depakote and now Keppra who presented yesterday for altered mental status, presumed due to postictal patient became more awake in the emergency room, initially planned to be admitted for MRI to rule out mass as well as a adjustment of her Depakote and Keppra level. Patient left AMA. His valproic acid level came back at 32.9. He states his last seizure before yesterday was over 6 years ago. He does not follow-up with any neurologist for follow-up with his regular PCP He presented again today because of sudden onset loss of consciousness and seizure activity this evening. He states he was walking towards the door then suddenly lost consciousness. Event was witnessed by the .postevent he became more drowsy and EMS had brought him to the emergency room he is more awake and conversant now willing to stay for full workup now. Laboratory workup today unremarkable. Hospital Course: Pt is a 72yo male with past medical history of CVA hypertension, seizure disorder on Depakote and now Keppra who presented with AMS. Of note, pt left AMA from the ER after he presented with AMS. At home, the symptoms worsened and his family members brought him to the ER. We admission, we started keppra and depakote. Valproic acid level was low at 32.9. We continued keppra 100mg po BID and depakote 500mg po BID. MRI brain was unremarkable. Pt was in NAD prior to discharge. Vital Signs/Physical Exam: Temp Pulse Resp BP Pulse Ox 97.0 F 63 20 145/70 H 94 08/08/23 08:00 08/08/23 08:00 08/08/23 08:00 08/08/23 08:00 08/08/23 08:00 Laboratory Data at Discharge: WBC 7.10 thou/uL (4.3-10.9) 08/08/23 06:53 Hgb 11.6 g/dL (13.6-17.9) L 08/08/23 06:53 Hct 35.5 % (39.6-49.0) L 08/08/23 06:53 Plt Count 302 thou/uL (152-406) 08/08/23 06:53 PT 10.8 SECONDS (9.5-12.5) 08/06/23 21:24 INR 0.90 08/06/23 21:24 Sodium 138 mEq/L (136-145) 08/08/23 06:53 Potassium 4.1 mEq/L (3.5-5.1) 08/08/23 06:53 BUN 10 mg/dL (7-18) 08/08/23 06:53 Creatinine 0.65 mg/dL (0.70-1.30) L 08/08/23 06:53 Glucose 85 mg/dL (74-106) 08/08/23 06:53 Magnesium 2.3 mg/dL (1.6-2.4) 08/06/23 21:24 Total Bilirubin 0.4 mg/dL (0.2-1.0) 08/08/23 06:53 AST 7 U/L (15-37) L 08/08/23 06:53 ALT 11 U/L (16-61) L 08/08/23 06:53 Alkaline Phosphatase 70 U/L (45-117) 08/08/23 06:53 Lipase 31 U/L (13-75) 08/06/23 21:24 Home Medications: Oxycodone HCl 1 tab PO QID PRN 09/22/20 Cholestyramine (with Sugar) [Cholestyramine Packet] 4 gm PO 08/07/23 Gabapentin 800 mg PO 08/07/23 Sucralfate [Carafate] 1 gm PO 08/07/23 hydroCHLOROthiazide [Hydrochlorothiazide] 12.5 mg PO 08/07/23 methocarbamoL [Methocarbamol] 08/07/23 Divalproex Sodium [Depakote] 500 mg PO BID 30 Days #60 tab 08/08/23 levETIRAcetam [Keppra*] 1,000 mg PO BID 30 Days #60 tab 08/08/23 New Medications: Divalproex Sodium [Depakote] 500 mg PO BID 30 Days #60 tab levETIRAcetam [Keppra*] 1,000 mg PO BID 30 Days #60 tab Physician Discharge Instructions: Continue ad jose luis activity. Take Keppra 100mg po BID and depakote 500mg po BID. Follow up with PCP and Dr. Jacobson within 2 weeks. Diet: AHA Activity: Ad jose luis Followup: Adam Botello DO, DO [Primary Care Provider] -
[2023-08-08 13:19] VITALS: BP 146/70; TEMP 97.3
--- NOTE | 2023-08-08 16:48 | EKG ---
Test Date: 2023-08-06 Test Time: 20:33:59 Bearingizer: DIANNA MEASUREMENT RESULTS: Intervals: Rate: 71 DC: 248 QRSD: 94 QT: 394 QTc: 428 Mcallen: P: 63 DC: 248 QRS: -19 T: -40 INTERPRETIVE STATEMENTS: Sinus rhythm with 1st degree AV block Otherwise normal ECG Compared to ECG 08/05/2023 16:35:36 Ventricular premature complex(es) no longer present Electronically Signed On 08-08-23 16:42:39 CDT by Margarito Hidalgo
== END 2023-08-08 13:30 | disposition home or self-care (01) ==
LOC: ER 20:34 → ERHOLD 08-07 00:29 → 4TH 08-07 01:18
PROVIDERS: ADMIT Internal Medicine; ATTEND Hospitalist
DX: R41.82 Altered mental status, unspecified (principal); R56.9 Unspecified convulsions; I25.810 Atherosclerosis of coronary artery bypass graft(s) without angina pectoris; I10 Essential (primary) hypertension; Z86.73 Personal history of transient ischemic attack (TIA), and cerebral infarction without residual deficits; Z88.0 Allergy status to penicillin; Z88.6 Allergy status to analgesic agent; Z11.52 Encounter for screening for COVID-19
CPT/HCPCS: 96365; 96367; 93005; 87040 ×2; 85025 ×2; 81001; 80048; 36415 ×2; 83735; 85610; 82947; 80076; 80164; 83605; 84484 ×2; 83690; 80053; 80177; 83880; 80307; 87804 ×2; 70450; 71250; 72125; 71045; 70553; 82805; 51702; 96375; 99285; 87811; 36600; A9577; J1953; J3010; J2270 ×4; J2405 ×5; J7030 ×3; J0696; G0378 ×3

== ENCOUNTER 2023-09-06 20:47 | Emergency (ER) | payer OTHER ==
[2023-09-06 21:39] LABS: Absolute Basophils 0.1 K/uL (0-0.5); Absolute Eosinophils 0.1 K/uL (0-0.5); Absolute Lymphocytes (CBC) 2.2 K/uL (0.7-4.9); Absolute Monocytes 1.1 K/uL (0.1-1.3); Absolute Neutrophil 7.7 K/uL (1.8-8.0); Basophils % 0.5 % (0-1.3); Hematocrit 37.1 % (39.6-49.0); Hemoglobin 11.9 g/dL (13.6-17.9); Lymphocytes % 19.5 % (15.3-44.8); MCH 27.3 pg (27.0-35.0); MCV 85.1 fL (80-100); MPV 8.4 fL (7.6-11.3); Platelets 312 thou/uL (152-406); RBC Red Blood Cell Count 4.36 M/uL (4.33-5.43); Red Cell Distribution Width 21.4 % (12.1-15.2)
[2023-09-06 21:40] LABS: PT Prothrombin Time 11.6 SECONDS (9.5-12.5); Protime INR 1.06
[2023-09-06 21:45] LABS: Specific Gravity 1.012 (1.005-1.030); Sqamous Epithelial None Seen /HPF (None Seen); Urine Bacteria None Seen /HPF (<20); Urine Bilirubin NEGATIVE (Negative); Urine Blood Trace (Negative); Urine Clarity Clear (Clear); Urine Color Light-Yellow (Yellow); Urine Culture Reflex Order NOT NEEDED; Urine Glucose NEGATIVE (Negative); Urine Ketones NEGATIVE (Negative); Urine Microscopic Reflex YN ORDER UMIC; Urine Nitrite NEGATIVE (Negative); Urine Protein NEGATIVE (Negative); Urine RBC <5 /HPF (None Seen); Urine Urobilinogen Normal (Normal); Urine WBC None Seen /HPF (<5)
[2023-09-06 21:53] LABS: ALT/SGPT < 14 U/L (16-61); AST/SGOT < 10 U/L (15-37); Albumin 3.5 g/dL (3.4-5.0); Albumin/Globulin Ratio 0.7 (1.1-1.8); Alkaline Phosphatase 81 U/L (45-117); BUN Blood Urea Nitrogen 12 mg/dL (7-18); Bicarbonate 27 mEq/L (21-32); Bilirubin Total 0.4 mg/dL (0.2-1.0); Globulin 4.9 g/dL (2.3-3.5); Glomerular Filtration Rate 94 ml/min (=/>90); Glucose Level 90 mg/dL (74-106); Lipase 30 U/L (13-75); NT PRO-BNP 254 pg/mL (<125); Protein, Total 8.4 g/dL (6.4-8.2); Sodium Level 138 mEq/L (136-145); Troponin High Sensitivity 14.6 pg/mL (<58.9)
--- NOTE | 2023-09-06 22:13 | RAD REPORT ---
EXAM DESCRIPTION: Olivia Single View09/06/2023 9:27 pm CLINICAL HISTORY: Chest pain COMPARISON: July 2023 FINDINGS: The lungs appear clear of acute infiltrate. The heart is mildly enlarged. Postsurgical changes involve the chest. IMPRESSION: No acute abnormalities displayed
[2023-09-06] MEDS ORDERED: MORPHINE 4 MG/ML SYR ONE (23:16)
[2023-09-06] MEDS ORDERED: ONDANSETRON 4 MG/2 ML VIAL ONE (23:16)
--- NOTE | 2023-09-06 23:29 | ER ---
Nurse's Notes [facility] Name: Bryan Graf Age: 72 yrs Sex: Male : 1950 Arrival Date: 09/06/2023 Time: 20:47 Bed 3 Private MD: Diagnosis: Confusion, altered mental status, chronic pain Presentation: 09/05 21:22 Chief complaint: Patient states: My groin down to my legs hurts. Coronavirus screen: At [facility] this time, the client does not indicate any symptoms associated with coronavirus-19. Ebola Screen: No symptoms or risks identified at this time. Initial Sepsis Screen: Does the patient meet any 2 criteria? RR > 20 per min. Altered Mental Status. Yes Does the patient have a suspected source of infection? No. Patient's initial sepsis screen is negative. Risk Assessment: Do you want to hurt yourself or someone else? Patient reports no desire to harm self or others. Onset of symptoms was September 06, 2023. 21:22 Method Of Arrival: Wheelchair [facility] 21:22 Acuity: GELACIO 3 jw7 Triage Assessment: 21:24 General: Appears in no apparent distress. uncomfortable, slender, unkempt, Behavior is [facility] cooperative, anxious, fussy, restless. Pain: Complains of pain in pelvis, right leg and left leg Pain does not radiate. Pain currently is 10 out of 10 on a pain scale. Pain began suddenly, Is continuous. EENT: No deficits noted. No signs and/or symptoms were reported regarding the EENT system. Neuro: Level of Consciousness is awake, alert, Oriented to person. Cardiovascular: Heart tones S1 S2 present Capillary refill < 3 seconds Patient's skin is warm and dry. Respiratory: Airway is patent Trachea midline Respiratory effort is even, unlabored, Respiratory pattern is regular, symmetrical. GI: Abdomen is flat, non-distended. : Reports urgency. Derm: Skin is healthy with good turgor, is fragile, Skin is dry, Skin is normal, Skin temperature is warm. Musculoskeletal: Circulation, motion, and sensation intact. Range of motion: intact in all extremities. Historical: - Allergies: 21:24 Aspirin; jw7 21:24 PENICILLINS; [facility] - Home Meds: 21:24 divalproex 250 mg Oral tablet [Active]; Keppra 1 Oral tablet 1 tab 2 times per day jw7 [Active]; - PMHx: 21:24 Chronic pain; COPD; CVA; Hypertension; Migraine; Pneumonia; Seizures; swelling and pain jw7 to L lower leg; - PSHx: 21:24 back surgery; heart surgery; Right hip surgery; jw7 - Immunization history:: Adult Immunizations unknown. - Infectious Disease History:: Denies. - Social history:: Smoking status: unknown. Screenin:27 [facility] ED Fall Risk Assessment (Adult) History of falling in the last 3 months, jw7 including since admission No falls in past 3 months (0 pts) Confusion or Disorientation Yes (5 pts) Intoxicated or Sedated No (0 pts) Impaired Gait Yes (1 pt) Mobility Assist Device Used Yes (1 pt) Altered Elimination Yes (1 pt) Score/Fall Risk Level 3 or more points = High Risk Oriented to surroundings, Maintained a safe environment, Educated pt \T\ family on fall prevention, incl call for assistance when getting out of bed, Assessed \T\ reinforced patient's understanding of fall precautions, Provided non-skid footwear, Hourly rounding (assess needs \T\ fall precautionary measures) done. Abuse screen: Denies threats or abuse. Denies injuries from another. Nutritional screening: No deficits noted. Tuberculosis screening: No symptoms or risk factors identified. 09/06 00:35 [facility] ED Fall Risk Assessment (Adult) History of falling in the last 3 months, jw7 including since admission Yes- single mechanical fall (1 pt) Confusion or Disorientation No (0 pts) Intoxicated or Sedated No (0 pts) Impaired Gait Yes (1 pt) Mobility Assist Device Used Yes (1 pt) Altered Elimination No (0 pt) Score/Fall Risk Level 3 or more points = High Risk Oriented to surroundings, Maintained a safe environment, Educated pt \T\ family on fall prevention, incl call for assistance when getting out of bed, Assessed \T\ reinforced patient's understanding of fall precautions, Provided non-skid footwear, Hourly rounding (assess needs \T\ fall precautionary measures) done. Assessment: 09/05 21:28 General: See Triage Assessment. jw7 22:30 Reassessment: Patient appears in no apparent distress at this time. Patient and/or jw7 family updated on plan of care and expected duration. Pain level reassessed. Patient is alert, oriented x 3, equal unlabored respirations, skin warm/dry/pink. 22:30 Neuro: Level of Consciousness is awake, alert, obeys commands, Oriented to person, jw7 place, time, situation, Appropriate for age. 22:30 Cardiovascular: Heart tones S1 S2 present Capillary refill < 3 seconds Clubbing of nail jw7 beds is absent JVD is absent Patient's skin is warm and dry. Respiratory: Airway is patent Respiratory effort is even, unlabored, Respiratory pattern is regular, symmetrical. 23:22 Reassessment: Patient appears in no apparent distress at this time. No changes from jw7 previously documented assessment. Patient and/or family updated on plan of care and expected duration. Pain level reassessed. Patient is alert, oriented x 3, equal unlabored respirations, skin warm/dry/pink. 09/06 00:30 General: Pt advised to stay in bed, pt refused, and began to exit bed to put shoes on. jw7 Pt unsteady, weak and fell while exiting the stretcher, Provider and Charge Nurse Notified. 00:30 General: Appears in no apparent distress. comfortable. jw7 00:30 Pain: Denies pain. Neuro: Level of Consciousness is awake, alert, obeys commands, jw7 Oriented to person, place, time, situation, Appropriate for age Confection[employer] Laboratory Manager are equal bilaterally Moves all extremities. Gait is unsteady, Speech is normal, Facial symmetry appears normal, Pupils are PERRLA, Intact. Cardiovascular: Heart tones S1 S2 present Capillary refill < 3 seconds Clubbing of nail beds is absent JVD is absent Patient's skin is warm and dry. Respiratory: Airway is patent Trachea midline Respiratory effort is even, unlabored, Respiratory pattern is regular, symmetrical, Breath sounds are clear bilaterally. GI: Abdomen is flat, non-distended, Bowel sounds present X 4 quads. Abd is soft and non tender X 4 quads. : No deficits noted. No signs and/or symptoms were reported regarding the genitourinary system. EENT: No deficits noted. No signs and/or symptoms were reported regarding the EENT system. Derm: Skin is intact, is healthy with good turgor, Skin is dry, Skin is normal, Skin temperature is warm. Musculoskeletal: Circulation, motion, and sensation intact. Range of motion: intact in all extremities. 00:35 General: Discharge pending post fall CT Results. jw7 00:40 Reassessment: Patient appears in no apparent distress at this time. Patient and/or jw7 family updated on plan of care and expected duration. Pain level reassessed. Patient is alert, oriented x 3, equal unlabored respirations, skin warm/dry/pink. Pt denies any pain at this time. 00:40 General: Family at bedside. jw7 01:00 Reassessment: Patient appears in no apparent distress at this time. No changes from jw7 previously documented assessment. Patient and/or family updated on plan of care and expected duration. Pain level reassessed. Patient is alert, oriented x 3, equal unlabored respirations, skin warm/dry/pink. 01:15 Reassessment: Patient appears in no apparent distress at this time. No changes from jw7 previously documented assessment. Patient and/or family updated on plan of care and expected duration. Pain level reassessed. Patient is alert, oriented x 3, equal unlabored respirations, skin warm/dry/pink. 01:30 Reassessment: Patient appears in no apparent distress at this time. No changes from jw7 previously documented assessment. Patient and/or family updated on plan of care and expected duration. Pain level reassessed. Patient is alert, oriented x 3, equal unlabored respirations, skin warm/dry/pink. 01:45 Reassessment: Patient appears in no apparent distress at this time. No changes from jw7 previously documented assessment. Patient and/or family updated on plan of care and expected duration. Pain level reassessed. Patient is alert, oriented x 3, equal unlabored respirations, skin warm/dry/pink. 02:00 Reassessment: Patient appears in no apparent distress at this time. No changes from jw7 previously documented assessment. Patient and/or family updated on plan of care and expected duration. Pain level reassessed. Patient is alert, oriented x 3, equal unlabored respirations, skin warm/dry/pink. Vital Signs: 09/05 21:22 BP 128 / 71; Pulse 73; Resp 25 S; Temp 97.8; Pulse Ox 96% on R/A; Pain 10/10; jw7 21:45 BP 120 / 55; Pulse 65; Resp 20 S; Pulse Ox 100% on R/A; jw7 22:00 BP 124 / 43; Pulse 67; Resp 22 S; Pulse Ox 100% on R/A; jw7 23:00 BP 123 / 67; Pulse 67; Resp 19 S; Pulse Ox 100% on R/A; jw7 09/06 00:00 BP 122 / 60; Pulse 66; Resp 14 S; Pulse Ox 96% on R/A; jw7 00:35 BP 146 / 68; Pulse 61; Resp 16 S; Pulse Ox 98% on R/A; jw7 01:00 BP 136 / 74; Pulse 64; Resp 17 S; Pulse Ox 98% on R/A; jw7 01:30 BP 145 / 69; Pulse 65; Resp 16 S; Pulse Ox 99% on R/A; jw7 02:00 BP 150 / 70; Pulse 67; Resp 16 S; Pulse Ox 97% on R/A; jw7 09/05 21:22 Pain Scale: Adult jw7 ED Course: 09/05 20:49 Patient arrived in ED. cm10 20:51 Faustino Griffin MD is Attending Physician. sp3 20:55 First set of blood cultures drawn by ED staff. jw7 21:14 Initial lab(s) drawn, by ED staff, sent to lab. Second set of blood cultures drawn by jw7 ED staff, Urine collected: Crawford catheter specimen, clear, Amount Returned: 300mL. 21:24 Triage completed. jw7 21:24 Arm band placed on. jw7 21:27 Patient has correct armband on for positive identification. Bed in low position. Call jw7 light in reach. Side rails up X2. Provided Education on:. 21:27 Inserted saline lock: 22 gauge in left forearm, using aseptic technique. Blood jw7 collected. 21:29 Chest Single View XRAY In Process Unspecified. EDMS 21:30 Client placed on continuous cardiac and pulse oximetry monitoring. NIBP monitoring jw7 applied. electronic device monitor on. Pulse ox on. NIBP on. 21:30 Fall risk band placed. Placed in gown. Door closed. Noise minimized. Warm blanket jw7 given. Pillow given. Verbal reassurance given. 23:00 CT Head Brain wo Cont In Process Unspecified. EDMS 09/06 00:30 Notified ED physician of other Patient Fall Notified Charge Nurse of Patient Fall. jw7 00:30 IV discontinued, intact, bleeding controlled, No redness/swelling at site. Pressure jw7 dressing applied. 00:35 Provided Education on: Fall Prevention. jw7 00:35 Assisted with urinal. jw7 00:40 Notified family of Patient's fall. jw7 00:45 Sales Professional Bilingual notified Of Patient Fall. jw7 01:01 CT Head C Spine In Process Unspecified. EDMS 01:52 No provider procedures requiring assistance completed. jw7 Administered Medications: 09/05 23:22 Drug: morphine IVP or IV 4 mg IVP once over 4 mins Route: IVP; Infused Over: 4 mins; jw7 Site: left forearm; 09/06 01:51 Follow up: Response: No adverse reaction; Marked relief of symptoms; Pain is decreased jw7 09/05 23:22 Drug: Ondansetron IVP 4 mg IVP once; over 2 minutes Route: IVP; Site: left forearm; jw7 09/06 01:52 Follow up: Response: No adverse reaction; Marked relief of symptoms; Nausea is decreasedjw7 Medication: 01:52 VIS not applicable for this client. jw7 Outcome: 09/05 23:29 Discharge ordered by . omar 09/06 01:55 Discharged to home via wheelchair, with family, jw7 Condition: stable Discharge instructions given to patient, family, Instructed on discharge instructions, follow up and referral plans. Demonstrated understanding of instructions, follow-up care, 02:00 Patient left the ED. jw7 Signatures: Dispatcher [employer] EDMT Faustino Griffin MD MD sp3 Dede Seay RN RN jw7 Iza Torres RN RN cm10 Corrections: (The following items were deleted from the chart) 01:15 09/05 22:30 Reassessment: Patient appears in no apparent distress at this time. No jw7 changes from previously documented assessment. Patient and/or family updated on plan of care and expected duration. Pain level reassessed. Patient is alert, oriented x 3, equal unlabored respirations, skin warm/dry/pink. jw7 09/06 02:11 00:40 Reassessment: Patient appears in no apparent distress at this time. Patient jw7 and/or family updated on plan of care and expected duration. Pain level reassessed. Patient is alert, oriented x 3, equal unlabored respirations, skin warm/dry/pink. jw7 02:26 02:26 Patient left the ED. jw7 jw7
--- NOTE | 2023-09-06 23:29 | EDPHYS ---
Physician Documentation [facility] Name: Bryan Graf Age: 72 yrs Sex: Male : 1950 Arrival Date: 09/06/2023 Time: 20:47 Bed 3 Private MD: ED Physician Faustino Griffin HPI: 09/05 21:00 This 72 yrs old Male presents to ER via Unassigned with complaints of altered mental sp3 status. 21:00 72-year-old male with history of seizure disorder, prior CVA, COPD, hypertension, sp3 chronic pain now presents to the ED dropped off by family for unknown exact presentation other than altered mental status. History, physical and ROS severely limited. Patient keeps pointing at his lower abdomen but he has had chronic pain on his abdomen and bilateral lower extremities. Patient has had multiple episodes of the same presentation in the past.. Historical: - Allergies: 21:24 Aspirin; jw7 21:24 PENICILLINS; jw7 - Home Meds: 21:24 divalproex 250 mg Oral tablet [Active]; Keppra 1 Oral tablet 1 tab 2 times per day jw7 [Active]; - PMHx: 21:24 Chronic pain; COPD; CVA; Hypertension; Migraine; Pneumonia; Seizures; swelling and pain jw7 to L lower leg; - PSHx: 21:24 back surgery; heart surgery; Right hip surgery; jw7 - Immunization history:: Adult Immunizations unknown. - Infectious Disease History:: Denies. - Social history:: Smoking status: unknown. ROS: 21:02 Unable to obtain ROS due to altered mental status, baseline dementia, sp3 Exam: 21:02 Constitutional: This is a well developed, well nourished patient who is awake, alert, sp3 and in no acute distress. Head/Face: Normocephalic, atraumatic. Eyes: Pupils equal round and reactive to light, extra-ocular motions intact. Lids and lashes normal. Conjunctiva and sclera are non-icteric and not injected. Cornea within normal limits. Periorbital areas with no swelling, redness, or edema. Neck: Trachea midline, no thyromegaly or masses palpated, and no cervical lymphadenopathy. Supple, full range of motion without nuchal rigidity, or vertebral point tenderness. No Meningismus. Chest/axilla: Normal chest wall appearance and motion. Nontender with no deformity. No lesions are appreciated. Cardiovascular: Regular rate and rhythm with a normal S1 and S2. No gallops, murmurs, or rubs. Normal PMI, no JVD. No pulse deficits. Respiratory: Lungs have equal breath sounds bilaterally, clear to auscultation and percussion. No rales, rhonchi or wheezes noted. No increased work of breathing, no retractions or nasal flaring. Abdomen/GI: Soft, non-tender, with normal bowel sounds. No distension or tympany. No guarding or rebound. No evidence of tenderness throughout. Back: No spinal tenderness. No costovertebral tenderness. Full range of motion. Skin: Warm, dry with normal turgor. Normal color with no rashes, no lesions, and no evidence of cellulitis. MS/ Extremity: Pulses equal, no cyanosis. Neurovascular intact. Full, normal range of motion. 21:02 Neuro: Patient mumbles to questions. All extremities are moving with no focal abnormality grossly speaking. No facial droop or other gross cranial nerve deficits noted. Gait not tested. Unable to be tested. Abdomen soft nontender with no grimace and nondistended. Distal neurovascular exam is normal. Male exam is also normal., 22:40 ECG was reviewed by the Attending Physician. EKG demonstrates normal sinus rhythm at 66 sp3 bpm with a first-degree AV block with ID interval 234, leftward axis normal QRS nonspecific diffuse ST/T-segment's without evidence of acute ischemia. Vital Signs: 21:22 BP 128 / 71; Pulse 73; Resp 25 S; Temp 97.8; Pulse Ox 96% on R/A; Pain 10/10; jw7 21:45 BP 120 / 55; Pulse 65; Resp 20 S; Pulse Ox 100% on R/A; jw7 22:00 BP 124 / 43; Pulse 67; Resp 22 S; Pulse Ox 100% on R/A; jw7 23:00 BP 123 / 67; Pulse 67; Resp 19 S; Pulse Ox 100% on R/A; jw7 09/06 00:00 BP 122 / 60; Pulse 66; Resp 14 S; Pulse Ox 96% on R/A; jw7 00:35 BP 146 / 68; Pulse 61; Resp 16 S; Pulse Ox 98% on R/A; jw7 01:00 BP 136 / 74; Pulse 64; Resp 17 S; Pulse Ox 98% on R/A; jw7 01:30 BP 145 / 69; Pulse 65; Resp 16 S; Pulse Ox 99% on R/A; 7 02:00 BP 150 / 70; Pulse 67; Resp 16 S; Pulse Ox 97% on R/A; 7 09/05 21:22 Pain Scale: Adult [facility] MDM: 09/05 20:51 Patient medically screened. 3 21:03 Data reviewed: vital signs, nurses notes, old medical records, lab test result(s), EKG, sp3 radiologic studies. ED course: 72-year-old male with recurrent altered mental status in the setting of his PMH referenced above. Differential diagnosis is broad and includes intracranial process, recurrent TIA/CVA, sepsis, shock, pneumonia, UTI, electrolyte abnormality to lesser degree ACS. Workup will include EKG, chest x-ray, CT scan of the head, laboratory values, urine analysis and general observation. Lactate and ammonia also pending. Disposition pending workup and patient course with probable admission.. 09/05 20:54 Order name: Blood Culture Adult (2) 09/05 20:54 Order name: CBC with Diff; Complete Time: 22: [facility] 09/05 20:54 Order name: CMP; Complete Time: 22: [facility] 09/05 20:54 Order name: Lactate w/ 2H reflex if indic.; Complete Time: 22: [facility] 09/05 20:54 Order name: Protime (+inr); Complete Time: 22: [facility] 09/05 20:54 Order name: Urinalysis w/ reflexes; Complete Time: 22:01 [facility] 09/05 20:54 Order name: Lipase; Complete Time: 22: [facility] 09/05 20:54 Order name: Troponin High Sensitivity; Complete Time: 22: [facility] 09/05 20:54 Order name: BNP; Complete Time: 22: [facility] 09/05 20:54 Order name: AMMONIA; Complete Time: 22: [facility] 09/05 20:54 Order name: Chest Single View XRAY; Complete Time: 22:18 [facility] 09/05 21:04 Order name: CT Head Brain wo Cont 09/06 00:29 Order name: CT Head C Spine 09/05 20:54 Order name: EKG; Complete Time: 20:54 sp3 09/05 20:54 Order name: Cardiac monitoring; Complete Time: 21: sp3 09/05 20:54 Order name: EKG - Nurse/Tech; Complete Time: 21:43 sp3 09/05 20:54 Order name: IV Saline Lock - Large Bore; Complete Time: 21:29 sp3 09/05 20:54 Order name: Labs collected and sent; Complete Time: 21:29 sp3 09/05 20:54 Order name: O2 Sat Monitoring; Complete Time: 21: sp3 09/05 20:54 Order name: Vital Signs; Complete Time: 21:29 sp3 Administered Medications: 23:22 Drug: morphine IVP or IV 4 mg IVP once over 4 mins Route: IVP; Infused Over: 4 mins; jw7 Site: left forearm; 09/06 01:51 Follow up: Response: No adverse reaction; Marked relief of symptoms; Pain is decreased [facility] 09/05 23:22 Drug: Ondansetron IVP 4 mg IVP once; over 2 minutes Route: IVP; Site: left forearm; 7 09/06 01:52 Follow up: Response: No adverse reaction; Marked relief of symptoms; Nausea is decreasedjw7 Disposition Summary: 09/06/23 23:29 Discharge Ordered Notes: Location: Home sp3 Condition: Stable sp3 Diagnosis - Confusion, altered mental status, chronic pain sp3 Followup: sp3 - With: Private Physician - When: Upon discharge from the Emergency Department - Reason: Continuance of care Discharge Instructions: - Discharge Summary Sheet sp3 - Chronic Pain, Adult sp3 Forms: - Medication Reconciliation Form sp3 - Antibiotic Education sp3 - Prescription Opioid Use sp3 - Patient Portal Instructions sp3 - Leadership Thank You Letter sp3 Signatures: Dispatcher [employer] EDFaustino Montemayor MD MD sp3 Dede Seay RN RN jw7 Corrections: (The following items were deleted from the chart) 09/05 20:54 20:54 AMMONIA+C.LAB.BRZ ordered. EDMS EDMS 21:05 21:05 Head Brain Wo Cont+CT.RAD.BRZ ordered. EDMS EDMS
[2023-09-07 02:47] VITALS: TEMP 97.8
[2023-09-07 03:17] VITALS: BP 150/70; O2SAT 97
--- NOTE | 2023-09-08 13:48 | RAD REPORT ---
EXAM DESCRIPTION: CT - Head Brain Wo Cont - 09/07/2023 6:39 am CLINICAL HISTORY: 72 years Male; CONFUSED; Bed Name: 6 TECHNIQUE: Noncontrast CT head. All CT scans at this facility use dose modulation, iterative reconstruction, and/or weight based dosi ng when appropriate to reduce radiation dose to as low as reasonably achievable. COMPARISON: MRI brain 08/07/2023. CT head 08/06/2023. FINDINGS: Parenchyma: No acute hemorrhage, large territorial infarction, or mass effect. Scattered h ypodense lesions are present in the white matter, likely remote small vessel ischemic changes. Mild g lobal volume loss. Ventricles and extra-axial spaces: Appropriate for age and degree of volume loss. Visualized paranasal sinuses: Clear. Mastoid air cells: Clear. Bones: No acute focal abnormality. Additional comment: Intracranial atherosclerosis. IMPRESSION: 1. No acute intracranial findings. 2. Chronic microvascular ischemic changes. Electronically signed by: Taqueria Parra MD 09/06/2023 11:43 PM CDT RP Z9 Due to temporary technical issues with the PACS/Fluency reporting system, reports are being signed by the in house radiologists without review as a courtesy to insure prompt reporting. The interpreting radiologist is fully responsible for the content of the report.
--- NOTE | 2023-09-08 13:54 | RAD REPORT ---
EXAM DESCRIPTION: CT - Head C Spine Mpr Wo Con - 09/07/2023 6:39 am CLINICAL HISTORY: 72 years, Male, TRAUMA COMPARISON: 09/06/2023 performed at 10:57 PM FINDINGS: Multiple transaxial tomograms of the brain were obtained from the base of the skull to the vertex without contrast. Multiple axial CT images through the cervical spine were obtained at 2 mm slice thickness at 2 mm int erval reconstruction. In addition 2-D multiplanar reformats and the sagittal coronal plane were perfo rmed and reviewed. An individualized dose optimization technique, Automated Exposure Control, was utilized for the perfo rmed procedure. BRAIN: The brain demonstrate prominence of the sulci and gyri corresponding to mild brain atrophy. Th ere is minimal periventricular white matter changes of microvascular ischemia. No acute intracranial hemorrhage. No midline shift and/or mass effect. VENTRICLES: Lateral ventricles and cisterns displace normal appearance. VASCULATURE: No visualized abnormalities in the arteries or dural venous sinuses. SCALP/SKULL: The calvarium demonstrate to be intact with no evidence for acute bony injuries. SINUSES: The visualized paranasal sinuses and mastoid air cells demonstrate to be clear. ORBITS: No significant abnormalities in the visualized orbital structures. EXAM DESCRIPTION: Head C Spine Mpr Wo Con 09/07/2023 1:19 AM CDT The alignment, vertebral body heights, and disc spaces are normal. BONES: There is no evidence of fracture or subluxation. DISCS: There is degenerative disc disease with anterior spondylosis and posterior osteophyte complex at C2/C3, C3/C4 C6/C7. There is no evidence for significant spinal canal narrowing and/or stenosis. JOINTS: There are minimal uncovertebral degenerative changes C2-C7. SOFT TISSUES: There is no prevertebral soft tissue swelling. Sagittal coronal reformatted images demonstrate no subluxation or bony abnormalities. LUNG APICES: The lung apices demonstrate to be within normal limits. IMPRESSION: No acute intracranial hemorrhage. Mild brain atrophy with minimal periventricular white matter changes of microvascular ischemia. No evidence for fracture or subluxation of the cervical spine. Degenerative disc disease at C2/C3, C3/C4 C6/C7. Electronically signed by: Colin Putnam MD 09/07/2023 01:21 AM CDT RP Due to temporary technical issues with the PACS/Fluency reporting system, reports are being signed by the in house radiologists without review as a courtesy to insure prompt reporting. The interpreting radiologist is fully responsible for the content of the report.
--- NOTE | 2023-09-10 14:25 | EKG ---
Test Date: 2023-09-06 Test Time: 21:33:06 Inspector Repairer: LU MEASUREMENT RESULTS: Intervals: Rate: 66 SD: 234 QRSD: 98 QT: 404 QTc: 423 [place]: P: 66 SD: 234 QRS: -39 T: 83 INTERPRETIVE STATEMENTS: Sinus rhythm with 1st degree AV block Left axis deviation Septal infarct, age undetermined Abnormal ECG Compared to ECG 08/06/2023 20:33:59 Left-axis deviation now present Myocardial infarct finding now present Electronically Signed On 09-10-23 14:15:11 CDT by Margarito Hidalgo
== END 2023-09-07 02:26 | disposition home or self-care (01) ==
LOC: ER 20:47
DX: R41.0 Disorientation, unspecified (principal); G89.29 Other chronic pain; Z88.0 Allergy status to penicillin; Z88.6 Allergy status to analgesic agent
CPT/HCPCS: 93005; 87040 ×2; 85025; 81001; 36415; 82140; 85610; 83605; 84484; 83690; 80053; 83880; 70450 ×2; 72125; 71045; 96375; 96374; 99285; J2405

== ENCOUNTER 2023-09-08 18:20 | Emergency (ER) | payer OTHER ==
--- NOTE | 2023-09-08 19:29 | RAD REPORT ---
EXAM DESCRIPTION: RAD - Chest Single View - 09/08/2023 7:22 pm CLINICAL HISTORY: CHEST PAIN COMPARISON: Chest Single View dated 09/06/2023; Chest Single View dated 08/06/2023; Chest Single View dated 08/05/2023; Chest Single View dated 05/15/2023 FINDINGS: Lines: None. Lungs: No evidence of edema or pneumonia. Pleural: No significant pleural effusions or pneumothorax. Cardiac: Cardiomegaly. Mediastinum: Within normal limits. Bones: No acute fractures. Sternotomy. Other: None IMPRESSION: No acute cardiopulmonary disease.
[2023-09-08] MEDS ORDERED: ACETAMINOPHEN 500 MG TAB ONE (19:32)
--- NOTE | 2023-09-08 20:04 | ER ---
Nurse's Notes [facility] Name: Bryan Graf Age: 72 yrs Sex: Male : 1950 Arrival Date: 09/08/2023 Time: 18:20 Bed 15 Private MD: Diagnosis: Dizziness and giddiness Presentation: 09/07 18:40 Chief complaint: Patient states: Pt struck his head on counter in this ED as he was tl4 being discharged on Saturday. Pt c/o dizziness, blurred vision, headache and CP since then. Coronavirus screen: At this time, the client does not indicate any symptoms associated with coronavirus-19. Ebola Screen: No symptoms or risks identified at this time. Initial Sepsis Screen: Does the patient meet any 2 criteria? No. Patient's initial sepsis screen is negative. Does the patient have a suspected source of infection? No. Patient's initial sepsis screen is negative. Risk Assessment: Do you want to hurt yourself or someone else? Patient reports no desire to harm self or others. Onset of symptoms was September 06, 2023. 18:40 Method Of Arrival: EMS: [facility] tl4 18:40 Acuity: GELACIO 3 tl4 Historical: - Allergies: 19:02 Aspirin; tl4 19:02 PENICILLINS; tl4 - PMHx: 19:02 Chronic pain; COPD; CVA; Hypertension; Pneumonia; Migraine; Seizures; swelling and pain tl4 to L lower leg; - PSHx: 19:02 back surgery; heart surgery; Right hip surgery; tl4 - Immunization history:: Adult Immunizations up to date. - Infectious Disease History:: Denies. - Social history:: Smoking status: Patient denies any tobacco usage or history of. Screenin:15 [facility] ED Fall Risk Assessment (Adult) History of falling in the last 3 months, lg3 including since admission Yes- physiologic fall (2 pts) Confusion or Disorientation No (0 pts) Intoxicated or Sedated No (0 pts) Impaired Gait Yes (1 pt) Mobility Assist Device Used Yes (1 pt) Altered Elimination No (0 pt) Score/Fall Risk Level 3 or more points = High Risk Oriented to surroundings, Maintained a safe environment, Educated pt \T\ family on fall prevention, incl call for assistance when getting out of bed, Assessed \T\ reinforced patient's understanding of fall precautions, Provided non-skid footwear, Implemented a Fall Risk Plan of Care, Apply high fall risk patient identification: yellow non skid footwear/ fall signage, Offered frequent toileting (1:1 observation), Utilized family, sitter, or virtual baster hand as indicated. Abuse screen: Denies threats or abuse. Denies injuries from another. Nutritional screening: No deficits noted. Tuberculosis screening: No symptoms or risk factors identified. Assessment: 19:15 General: Appears in no apparent distress. unkempt, Behavior is agitated, fussy, lg3 uncooperative. Pain: Complains of pain in head, chest and posterior chest Pain currently is 9 out of 10 on a pain scale. Neuro: Curran Agitation-Sedation Scale (RASS): +1 Restless Level of Consciousness is awake, alert, obeys commands, Oriented to person, place, time, situation, Speech is normal, Pupils are PERRLA. Neuro: Reports dizziness, headache weakness. Cardiovascular: No deficits noted. Reports chest pain, Heart tones S1 S2 present Capillary refill < 3 seconds Clubbing of nail beds is absent JVD is absent Patient's skin is warm and dry. Respiratory: No deficits noted. Airway is patent Respiratory effort is even, unlabored, Respiratory pattern is regular, symmetrical, Breath sounds are clear bilaterally. GI: No deficits noted. Abdomen is round non-distended, Abd is soft and non tender X 4 quads. : No deficits noted. No signs and/or symptoms were reported regarding the genitourinary system. EENT: No deficits noted. No signs and/or symptoms were reported regarding the EENT system. Derm: Skin is intact, is healthy with good turgor, Skin is dry, Skin is normal, Skin temperature is warm Bruising that is green, yellow, on forehead. Musculoskeletal: No deficits noted. Circulation, motion, and sensation intact. Range of motion: intact in all extremities. 19:50 General: pt refusing all treatment at this time. provider notified. lg3 20:17 Reassessment: Patient appears in no apparent distress at this time. Patient and/or lg3 family updated on plan of care and expected duration. Pain level reassessed. Patient is alert, oriented x 3, equal unlabored respirations, skin warm/dry/pink. Vital Signs: 18:40 BP 122 / 70; Pulse 75; Resp 18; Temp 98.2(O); Pulse Ox 98% ; Weight 72.57 kg; Height 5 tl4 ft. 8 in. ; 20:17 BP 128 / 73; Pulse 77; Resp 18 S; Temp 98.4(O); Pulse Ox 98% on R/A; lg3 18:40 Body Mass Index 24.33 (72.57 kg, 172.72 cm) tl4 ED Course: 18:33 Patient arrived in ED. tl4 18:59 Weston Gomez MD is Attending Physician. ec2 19:02 Triage completed. tl4 19:02 Arm band placed on right wrist. tl4 19:05 Michael Benito, JOSEPH is Primary Nurse. rs5 19:15 Safety Checks: Sitter present at this time. lg3 19:15 Patient has correct armband on for positive identification. Fall risk band placed. lg3 Placed in gown. Bed in low position. Call light in reach. Side rails up X 1. Client placed on continuous cardiac and pulse oximetry monitoring. NIBP monitoring applied. monitor car operator on. Door closed. Noise minimized. Warm blanket given. Pillow given. 19:15 EKG done, by ED staff, reviewed by Weston Gomez MD X-ray(s) taken. lg3 19:24 XRAY Chest (1 view) In Process Unspecified. EDMS 19:48 Missed attempt(s): 20 gauge in right forearm. Bleeding controlled, band aid applied, rv1 catheter tip intact. 19:48 Missed attempt(s): 22 gauge in right forearm. Bleeding controlled, band aid applied, rv1 catheter tip intact. 19:48 Missed attempt(s): 22 gauge in left forearm. Bleeding controlled, band aid applied, lg3 catheter tip intact. 19:48 Missed attempt(s): 22 gauge in right antecubital area. Bleeding controlled, band aid lg3 applied, catheter tip intact. 20:17 No provider procedures requiring assistance completed. Patient did not have IV access lg3 during this emergency room visit. Administered Medications: 19:34 Drug: Acetaminophen PO 1000 mg PO once Route: PO; lg3 20:22 Follow up: Response: No adverse reaction lg3 Medication: 20:17 VIS not applicable for this client. lg3 Outcome: 20:04 Discharge ordered by . ec2 20:17 Discharged to home via wheelchair, lg3 20:17 Condition: stable 20:17 Discharge instructions given to patient, Instructed on discharge instructions, follow up and referral plans. Demonstrated understanding of instructions, follow-up care, 20:22 Patient left the ED. lg3 Signatures: Dispatcher [employer] Cely Riggins RN RN lg3 Jada Wood rv1 Michael Benito RN RN rs5 eWston Gomez MD MD ec2 Eduardo Zamora RN RN tl4
--- NOTE | 2023-09-08 20:04 | EDPHYS ---
Physician Documentation [facility] Name: Bryan Graf Age: 72 yrs Sex: Male : 1950 Arrival Date: 09/08/2023 Time: 18:20 Bed 15 Private MD: ED Physician Weston Gomez HPI: 09/07 19:04 This 72 yrs old Male presents to ER via EMS with complaints of Dizziness. ec2 19:04 Patient arrives today for evaluation of dizziness which he describes as lightheadedness ec2 as well as chest pain and bodyaches. Patient reports he has been experiencing bouts of dizziness, states that he feels like he cannot pass out. Patient also reports some chest pain. Patient reports no diarrhea symptoms, no cough or cold symptoms, does report some nausea. Patient reports no abdominal pain, denies urinary complaints.. 19:05 Of note patient was seen here several days ago and had a recent ground-level fall which ec2 she was not checked out for. . Historical: - Allergies: 19:02 Aspirin; tl4 19:02 PENICILLINS; tl4 - PMHx: 19:02 Chronic pain; COPD; CVA; Hypertension; Pneumonia; Migraine; Seizures; swelling and pain tl4 to L lower leg; - PSHx: 19:02 back surgery; heart surgery; Right hip surgery; tl4 - Immunization history:: Adult Immunizations up to date. - Infectious Disease History:: Denies. - Social history:: Smoking status: Patient denies any tobacco usage or history of. ROS: 19:04 Constitutional: as per hpi ec2 Exam: 19:04 Constitutional: GEN: NAD Head: atraumatic Eyes: EOMI Ears: External ears are ec2 normal. CV: regular rate LUNGS: no respiratory distress ABD: non-distended, soft, nontender, no guarding, not rigid SKIN: no evidence of rashes MSK: no evidence of trauma NEURO: moves all extremities equally Vital Signs: 18:40 BP 122 / 70; Pulse 75; Resp 18; Temp 98.2(O); Pulse Ox 98% ; Weight 72.57 kg; Height 5 tl4 ft. 8 in. ; 20:17 BP 128 / 73; Pulse 77; Resp 18 S; Temp 98.4(O); Pulse Ox 98% on R/A; lg3 18:40 Body Mass Index 24.33 (72.57 kg, 172.72 cm) tl4 MDM: 18:59 Patient medically screened. ec2 19:04 Data reviewed: vital signs. ED course: Patient arrives today for evaluation of ec2 lightheadedness. Examination remarkable for nontoxic dividual with reassuring vital signs. Will obtain lab work, CT imaging and further assess. Evaluating for differential diagnosis including arrhythmia, electrolyte disturbances, intracranial brain bleed.. 19:10 ED course: EKG independently reviewed and interpreted by me, shows no evidence of acute ec2 ischemia, rate of 72, nonconcerning intervals. . 20:04 ED course: Chest x-ray independently reviewed and interpreted by me, shows no acute ec2 intrathoracic process, when compared to previous chest x-ray, appears grossly unchanged, INR is unremarkable. Patient demanding sedation for CT imaging. Patient also demanding pain medications despite no specific complaints of pain. Patient does not want IV placement and does not want further testing. I will discharge the patient and he expressed understanding regarding risk and benefits of not undergoing further testing. . 09/07 19:04 Order name: XRAY Chest (1 view); Complete Time: 20:03 ec2 09/07 19:04 Order name: Cardiac monitoring; Complete Time: 19:06 ec2 09/07 19:04 Order name: EKG - Nurse/Tech; Complete Time: 19:06 ec2 09/07 19:04 Order name: O2 Per Protocol; Complete Time: 19:06 ec2 09/07 19:04 Order name: O2 Sat Monitoring; Complete Time: 19:06 ec2 Administered Medications: 19:34 Drug: Acetaminophen PO 1000 mg PO once Route: PO; lg3 20:22 Follow up: Response: No adverse reaction lg3 Disposition Summary: 09/08/23 20:04 Discharge Ordered Notes: Location: Home ec2 Condition: Stable ec2 Diagnosis - Dizziness and giddiness ec2 Followup: ec2 - With: Private Physician - When: - Reason: Re-evaluation by your physician Discharge Instructions: - Discharge Summary Sheet ec2 - Dizziness, [id number] ec2 Forms: - Medication Reconciliation Form ec2 - Antibiotic Education ec2 - Prescription Opioid Use ec2 - Patient Portal Instructions ec2 - Leadership Thank You Letter ec2 Signatures: Dispatcher [employer] Cely Riggins RN RN lg3 Weston Gomez MD MD ec2 Eduardo Zamora RN RN tl4 Corrections: (The following items were deleted from the chart) 19:05 19:05 Head C Spine MPR Wo Con+CT.RAD.BRZ ordered. EDMS EDMS 19:05 19:05 Head Angio+CT.RAD.BRZ ordered. EDMS EDMS 19:05 19:05 Neck Angio+CT.RAD.BRZ ordered. EDMS EDMS 20:06 19:04 BASIC METABOLIC PANEL+C.LAB.BRZ ordered. EDMS EDMS 20:06 19:04 CBC+H.LAB.BRZ ordered. EDMS EDMS 20:06 19:04 PROTIME (+INR)+COAG.LAB.BRZ ordered. EDMS EDMS 20:06 19:04 Troponin High Sensitivity+C.LAB.BRZ ordered. EDMS EDMS 20:06 20:03 PROTIME (+INR)+COAG.LAB.BRZ reviewed. ec2 EDMS
[2023-09-08 20:51] VITALS: BP 128/73; TEMP 98.4; O2SAT 98
--- NOTE | 2023-09-10 14:17 | EKG ---
Test Date: 2023-09-08 Test Time: 19:00:55 Manager Business Continuity: SABAS MEASUREMENT RESULTS: Intervals: Rate: 72 MS: QRSD: 96 QT: 390 QTc: 427 [place]: P: MS: QRS: -13 T: -37 INTERPRETIVE STATEMENTS: Accelerated Junctional rhythm Septal infarct, age undetermined Abnormal ECG Compared to ECG 09/06/2023 21:33:06 Accelerated junctional rhythm now present Sinus rhythm no longer present First degree AV block no longer present Left-axis deviation no longer present Myocardial infarct finding still present Electronically Signed On 09-10-23 14:12:44 CDT by Margarito Hidalgo
== END 2023-09-08 20:22 | disposition home or self-care (01) ==
LOC: ER 18:20
DX: R42 Dizziness and giddiness (principal); I10 Essential (primary) hypertension; Z86.73 Personal history of transient ischemic attack (TIA), and cerebral infarction without residual deficits; Z88.0 Allergy status to penicillin; Z88.6 Allergy status to analgesic agent
CPT/HCPCS: 71045; 93005; 99285

== ENCOUNTER 2023-09-09 16:50 | Emergency (ER) | payer OTHER ==
--- NOTE | 2023-09-09 17:38 | RAD REPORT ---
EXAM DESCRIPTION: CT - Head Brain Wo Cont - 09/09/2023 5:29 pm CLINICAL HISTORY: ams, headache COMPARISON: Head Brain Wo Cont dated 09/06/2023; Head Brain Wo Cont dated 08/05/2023; Head C Spine Mpr Wo Con dated 09/07/2023 TECHNIQUE: All CT scans are performed using dose optimization technique as appropriate and may inclu de automated exposure control or mA/KV adjustment according to patient size. FINDINGS: No intracranial hemorrhage, hydrocephalus or extra-axial fluid collection.No areas of brai n edema or evidence of midline shift. Cerebral atrophy. Mild chronic small vessel ischemic changes. I ntracranial atherosclerosis. The paranasal sinuses and mastoids are clear. The calvarium is intact. IMPRESSION: No acute intracranial abnormality.
--- NOTE | 2023-09-09 17:54 | RAD REPORT ---
EXAM DESCRIPTION: RAD - Chest Single View - 09/09/2023 5:47 pm CLINICAL HISTORY: CHEST PAIN COMPARISON: Chest Single View dated 09/08/2023; Chest Single View dated 09/06/2023; Chest Single View dated 08/06/2023; Chest Single View dated 08/05/2023 FINDINGS: Lines: None. Lungs: No evidence of edema or pneumonia. Pleural: No significant pleural effusions or pneumothorax. Cardiac: Cardiomegaly. Sternotomy. Mediastinum: Within normal limits. Bones: No acute fractures. Other: None IMPRESSION: No acute cardiopulmonary disease.
[2023-09-09] MEDS ORDERED: ACETAMINOPHEN 500 MG TAB ONE (18:08)
[2023-09-09 18:17] LABS: Absolute Eosinophils 0.1 K/uL (0-0.5); Absolute Lymphocytes (CBC) 1.9 K/uL (0.7-4.9); Absolute Neutrophil 3.1 K/uL (1.8-8.0); Basophils % 0.6 % (0-1.3); Eosinophils % 1.3 % (0-4.4); Hematocrit 39.2 % (39.6-49.0); Hemoglobin 12.8 g/dL (13.6-17.9); Lymphocytes % 31.3 % (15.3-44.8); MCH 27.6 pg (27.0-35.0); MCHC 32.6 g/dL (32.0-36.0); MCV 84.6 fL (80-100); MPV 8.2 fL (7.6-11.3); Monocytes % 16.2 % (3.3-12.3); Neutrophils % 50.6 % (41.7-73.7); Platelets 310 thou/uL (152-406); RBC Red Blood Cell Count 4.64 M/uL (4.33-5.43); Red Cell Distribution Width 21.9 % (12.1-15.2)
[2023-09-09 18:37] LABS: AST/SGOT 11 U/L (15-37); Albumin/Globulin Ratio 0.7 (1.1-1.8); Alkaline Phosphatase 76 U/L (45-117); Anion Gap 6.9 mEq/L (5.0-15.0); BUN Blood Urea Nitrogen 14 mg/dL (7-18); Bicarbonate 28 mEq/L (21-32); Bilirubin Total 0.2 mg/dL (0.2-1.0); Globulin 4.2 g/dL (2.3-3.5); Glomerular Filtration Rate 94 ml/min (=/>90); Glucose Level 72 mg/dL (74-106); Magnesium 2.4 mg/dL (1.6-2.4); NT PRO-BNP 301 pg/mL (<125); Potassium 3.9 mEq/L (3.5-5.1); Protein, Total 7.2 g/dL (6.4-8.2); Sodium Level 143 mEq/L (136-145); Troponin High Sensitivity 27.1 pg/mL (<58.9)
[2023-09-09 18:50] LABS: ALT/SGPT < 14 U/L (16-61); Bilirubin Direct < 0.2 mg/dL (0-0.2)
--- NOTE | 2023-09-09 19:05 | EDPHYS ---
Physician Documentation [facility] Name: Bryan Graf Age: 72 yrs Sex: Male : 1950 Arrival Date: 09/09/2023 Time: 16:50 Bed 17 Private MD: ED Physician Luis Eduardo Stover HPI: 09/08 17:10 This 72 yrs old Male presents to ER via Unassigned with complaints of Headache, chest sb4 pain. 17:11 patient presents via EMS with complaints of headache and chest pain. he is a poor sb4 historian, disheveled. has been seen here the past 2 days for fall, pain, and dizziness. Historical: - Allergies: 17:41 Aspirin; tl4 17:41 PENICILLINS; tl4 - Home Meds: 17:41 divalproex 250 mg Oral tablet [Active]; Keppra 1 Oral tablet 1 tab 2 times per day tl4 [Active]; - PMHx: 17:41 Chronic pain; COPD; CVA; Hypertension; Migraine; Pneumonia; swelling and pain to L tl4 lower leg; Seizures; - PSHx: 17:41 back surgery; heart surgery; Right hip surgery; tl4 - Immunization history:: Adult Immunizations unknown. - Infectious Disease History:: Denies. - Social history:: Smoking status: Patient denies any tobacco usage or history of. ROS: 17:11 Constitutional: Negative for fever, chills, and weight loss, sb4 17:11 Cardiovascular: Positive for chest pain, 17:11 Neuro: Positive for headache, 17:11 All other systems are negative, Exam: 17:11 Head/Face: Normocephalic, atraumatic. Eyes: Extra-ocular motions intact. Periorbital sb4 areas with no swelling, redness, or edema. Cardiovascular: Regular rate and rhythm with a normal S1 and S2. Abdomen/GI: Soft, non-tender, no distension. Skin: Warm, dry with normal turgor. Normal color with no rashes, no lesions, and no evidence of cellulitis. MS/ Extremity: Pulses equal, no cyanosis. Neurovascular intact. Full, normal range of motion. 17:11 Constitutional: The patient appears in no acute distress, alert, awake, unkempt, Vital Signs: 17:00 BP 123 / 72; Pulse 94; Resp 25; Temp 97.9(O); Pulse Ox 96% on R/A; Weight 59.87 kg (M); tl4 17:00 BP 124 / 68; Pulse 94; Resp 20; Pulse Ox 97% on R/A; tl4 18:00 BP 118 / 72; Pulse 88; Resp 16; Pulse Ox 97% on R/A; tl4 19:22 BP 119 / 73; Pulse 86; Resp 21; Temp 97.9(O); Pulse Ox 96% on R/A; tl4 MDM: 16:56 Patient medically screened. sb4 19:04 Data reviewed: vital signs, nurses notes, EMS record, lab test result(s), EKG, sb4 radiologic studies, and as a result, I will discharge patient. Consideration of Admission/Observation Escalation of care including admission/observation considered. Care significantly affected by the following chronic conditions: Hypertension. Counseling: I had a detailed discussion with the patient and/or guardian regarding the historical points, exam findings, and any diagnostic results supporting the discharge/admit diagnosis, lab results, radiology results, the need for outpatient follow up, for definitive care, to return to the emergency department if symptoms worsen or persist or if there are any questions or concerns that arise at home. ED course: recommended admission for patient given he has been here 3 days in a row now. he refuses, wants to go home. has his at home to take care of him. states pain has resolved. 09/08 17:09 Order name: Basic Metabolic Panel; Complete Time: 18:50 [facility] 09/08 17:09 Order name: CBC with Diff; Complete Time: 19:09 [facility] 09/08 17:09 Order name: LFT's; Complete Time: 18:50 4 09/08 17:09 Order name: Magnesium; Complete Time: 18:50 [facility] 09/08 17:09 Order name: NT PRO-BNP; Complete Time: 18:50 [facility] 09/08 17:09 Order name: PT-INR; Complete Time: 19:16 [facility] 09/08 17:09 Order name: Troponin HS; Complete Time: 18:50 [facility] 09/08 17:14 Order name: CK; Complete Time: 18:48 [facility] 09/08 17:14 Order name: ETOH Level; Complete Time: 18:58 sb4 09/08 17:28 Order name: Valproic Acid (depakote); Complete Time: 18:36 sb4 09/08 19:08 Order name: CBC Smear Scan; Complete Time: 19:09 EDMS 09/08 17:09 Order name: XRAY Chest (1 view); Complete Time: 17:55 sb4 09/08 17:09 Order name: Head Brain Wo Cont CT; Complete Time: 17:39 sb4 09/08 17:09 Order name: Cardiac monitoring; Complete Time: 17:47 sb4 09/08 17:09 Order name: EKG - Nurse/Tech; Complete Time: 18:35 sb4 09/08 17:09 Order name: IV Saline Lock; Complete Time: 17:47 sb4 09/08 17:09 Order name: Labs collected and sent; Complete Time: 17:47 sb4 09/08 17:09 Order name: O2 Per Protocol; Complete Time: 17:47 sb4 09/08 17:09 Order name: O2 Sat Monitoring; Complete Time: 17:47 sb4 EC:34 Rate is 90 beats/min. Rhythm is regular, Sinus Rhythm with 1st degree heart block. Left sb4 axis deviation noted. CA interval is prolonged at 278 msec. QRS interval is normal at 98 msec. QT interval is normal at 372 msec. No Q waves. T waves are Normal. No ST changes noted. Clinical impression: No change from prior ECG and 1st degree heart block. Interpreted by me. Reviewed by me. Administered Medications: 18:13 Drug: Acetaminophen PO 1000 mg PO once Route: PO; tl4 19:21 Follow up: Response: No adverse reaction; Pain is decreased tl4 Disposition Summary: 09/09/23 19:03 Discharge Ordered Notes: Location: Home sb4 Problem: new sb4 Symptoms: have improved sb4 Condition: Stable sb4 Diagnosis - Headache sb4 Followup: sb4 - With: Emergency Department - When: As needed - Reason: Trouble breathing, Worsening of condition Discharge Instructions: - Discharge Summary Sheet sb4 - General Headache Without Cause, [id number] sb4 Forms: - Patient Portal Instructions sb4 - Leadership Thank You Letter sb4 Signatures: Dispatcher [employer] Taylor Gaitan PA-C PA-C sb4 LogdaEduardo sanchez RN RN tl4 Corrections: (The following items were deleted from the chart) 17: 17:09 Chest Single View+RAD.RAD.BRZ ordered. EDMS EDMS 17: 17:09 Head Brain Wo Cont+CT.RAD.BRZ ordered. EDMS EDMS 17:14 17:14 CREATINE PHOSPHOKINASE+C.LAB.BRZ ordered. EDMS EDMS 17:14 17:14 ETHANOL+C.LAB.BRZ ordered. EDMS EDMS 17:14 17:14 URINE DRUG SCREEN+UC.LAB.BRZ ordered. EDMS EDMS 17:15 17:11 patient presents via EMS with complaints of headache and chest pain. he is a poor sb4 historian, disheveled. has been seen here the past 2 days for fall, pain, and dizziness. sb4
--- NOTE | 2023-09-09 19:05 | ER ---
Nurse's Notes [facility] Name: Bryan Graf Age: 72 yrs Sex: Male : 1950 Arrival Date: 09/09/2023 Time: 16:50 Bed 17 Private MD: Diagnosis: Headache Presentation: 09/08 17:00 Chief complaint: Patient states: Pt c/o ongoing chest pain and headache since Saturday tl4 after striking head on cabinet in ED while being discharged. Pt was evaluated in ED yesterday for same. Coronavirus screen: At this time, the client does not indicate any symptoms associated with coronavirus-19. Ebola Screen: No symptoms or risks identified at this time. Initial Sepsis Screen: Does the patient meet any 2 criteria? No. Patient's initial sepsis screen is negative. Does the patient have a suspected source of infection? No. Patient's initial sepsis screen is negative. Risk Assessment: Do you want to hurt yourself or someone else? Patient reports no desire to harm self or others. Onset of symptoms was September 06, 2023. 17:00 Method Of Arrival: EMS: [facility] tl4 17:00 Acuity: GELACIO 2 tl4 Triage Assessment: 17:12 Headache History: The patient has had previous headaches and this one is similar to tl4 previous episodes. General: Appears unkempt, Behavior is cooperative. Pain: Complains of pain in chest Pain currently is 5 out of 10 on a pain scale. Pain began gradually, 2-3 days ago. Also complains of no other associated symptoms. EENT: No signs and/or symptoms were reported regarding the EENT system. Neuro: Level of Consciousness is awake, alert, obeys commands, Oriented to person, place, situation, Moves all extremities. Speech Pt speech is thick, somewhat garbled which is normal for patient. Reports headache since Saturday09/06/2023. Cardiovascular: Capillary refill < 3 seconds Patient's skin is warm and dry. Cardiovascular: Reports chest pain, Denies diaphoresis, fatigue, lightheadedness, nausea, palpitations, shortness of breath, syncope. Respiratory: Airway is patent Respiratory effort is even, unlabored, Respiratory pattern is regular, symmetrical. GI: No signs and/or symptoms were reported involving the gastrointestinal system. : No signs and/or symptoms were reported regarding the genitourinary system. Derm: No signs and/or symptoms reported regarding the dermatologic system. Musculoskeletal: No signs and/or symptoms reported regarding the musculoskeletal system. Historical: - Allergies: 17:41 Aspirin; tl4 17:41 PENICILLINS; tl4 - Home Meds: 17:41 divalproex 250 mg Oral tablet [Active]; Keppra 1 Oral tablet 1 tab 2 times per day tl4 [Active]; - PMHx: 17:41 Chronic pain; COPD; CVA; Hypertension; Migraine; Pneumonia; swelling and pain to L tl4 lower leg; Seizures; - PSHx: 17:41 back surgery; heart surgery; Right hip surgery; tl4 - Immunization history:: Adult Immunizations unknown. - Infectious Disease History:: Denies. - Social history:: Smoking status: Patient denies any tobacco usage or history of. Screenin:45 [facility] ED Fall Risk Assessment (Adult) History of falling in the last 3 months, tl4 including since admission No falls in past 3 months (0 pts) Confusion or Disorientation No (0 pts) Intoxicated or Sedated No (0 pts) Impaired Gait No (0 pts) Mobility Assist Device Used No (0 pt) Altered Elimination No (0 pt) Score/Fall Risk Level 0 - 2 = Low Risk Oriented to surroundings, Maintained a safe environment, Educated pt \T\ family on fall prevention, incl call for assistance when getting out of bed, Assessed \T\ reinforced patient's understanding of fall precautions. Abuse screen: Denies threats or abuse. Denies injuries from another. Nutritional screening: No deficits noted. Tuberculosis screening: No symptoms or risk factors identified. Assessment: 18:14 Reassessment: No changes from previously documented assessment. Patient and/or family tl4 updated on plan of care and expected duration. Pain level reassessed. Patient is alert, oriented x 3, equal unlabored respirations, skin warm/dry/pink. Pt c/o headache, provider aware, orders given. Pt denies any needs at this time. Will continue to monitor. Vital Signs: 17:00 BP 123 / 72; Pulse 94; Resp 25; Temp 97.9(O); Pulse Ox 96% on R/A; Weight 59.87 kg (M); tl4 17:00 BP 124 / 68; Pulse 94; Resp 20; Pulse Ox 97% on R/A; tl4 18:00 BP 118 / 72; Pulse 88; Resp 16; Pulse Ox 97% on R/A; tl4 19:22 BP 119 / 73; Pulse 86; Resp 21; Temp 97.9(O); Pulse Ox 96% on R/A; tl4 ED Course: 16:54 Patient arrived in ED. tl4 16:56 [facility] sb4 16:56 Luis Eduardo Stover MD is Attending Physician. sb4 17:31 Head Brain Wo Cont CT In Process Unspecified. EDMS 17:35 Eduardo Zamora, RN is Primary Nurse. tl4 17:41 Triage completed. tl4 17:45 Arm band placed on right wrist. tl4 17:45 Patient has correct armband on for positive identification. Placed in gown. Bed in low tl4 position. Call light in reach. Side rails up X2. Provided Education on: ed process, call garcia. Client placed on continuous cardiac and pulse oximetry monitoring. NIBP monitoring applied. playground monitor on. Door closed. Noise minimized. Lights dimmed. Moved to private room. Warm blanket given. Pillow given. 17:46 No provider procedures requiring assistance completed. Maintain EMS IV. Dressing tl4 intact. Good blood return noted. Site clean \T\ dry. Gauge \T\ site: 20g right antecubital. 17:49 XRAY Chest (1 view) In Process Unspecified. EDMS 18:05 ETOH Level Sent. tl4 18:05 Valproic Acid (depakote) Sent. tl4 18:05 CK Sent. tl4 18:05 Basic Metabolic Panel Sent. tl4 18:05 CBC with Diff Sent. tl4 18:05 LFT's Sent. tl4 18:05 Magnesium Sent. tl4 18:05 NT PRO-BNP Sent. tl4 18:05 PT-INR Sent. tl4 18:05 Troponin HS Sent. tl4 18:05 Initial lab(s) drawn, by me, sent to lab. Inserted saline lock: 22 gauge in left upper tl4 arm, using aseptic technique. Blood collected. 18:14 Assisted to bathroom. tl4 18:36 EKG done, by ED staff, reviewed by Taylor Antonio PA-C. tl4 19:24 IV discontinued, intact, bleeding controlled, No redness/swelling at site. Pressure tl4 dressing applied. 19:24 IV discontinued, intact, bleeding controlled, No redness/swelling at site. Pressure tl4 dressing applied. Administered Medications: 18:13 Drug: Acetaminophen PO 1000 mg PO once Route: PO; tl4 19:21 Follow up: Response: No adverse reaction; Pain is decreased tl4 Medication: 17:45 VIS not applicable for this client. tl4 Outcome: 19:03 Discharge ordered by MD. sb4 19:25 Discharged to home via wheelchair, tl4 19:25 Condition: stable 19:25 Discharge instructions given to patient, Instructed on discharge instructions, follow up and referral plans. Demonstrated understanding of instructions, follow-up care, 19:58 Patient left the ED. cm10 Signatures: Dispatcher [employer] EDTaylor Antony PA-C PA-C sb4 Iza Torres RN RN cm10 Eduardo Zamora RN RN tl4
[2023-09-09 19:07] LABS: White Blood Cell Scan OK (OK)
[2023-09-09 19:08] LABS: Blood Morphology Comment NOTED (NOT SEEN); Hypochromasia 2+; Platelet Estimate ADEQ
[2023-09-09 19:15] LABS: PT Prothrombin Time 11.4 SECONDS (9.5-12.5); Protime INR 1.04
[2023-09-09 20:15] VITALS: BP 119/73; TEMP 97.9; O2SAT 96
--- NOTE | 2023-09-10 14:12 | EKG ---
Test Date: 2023-09-09 Test Time: 18:21:15 General Freight Agent: TL MEASUREMENT RESULTS: Intervals: Rate: 90 WV: 278 QRSD: 98 QT: 372 QTc: 455 [place]: P: 82 WV: 278 QRS: -33 T: 61 INTERPRETIVE STATEMENTS: Sinus rhythm with 1st degree AV block Left axis deviation Abnormal ECG Compared to ECG 09/08/2023 19:00:55 First degree AV block now present Left-axis deviation now present Accelerated junctional rhythm no longer present Myocardial infarct finding no longer present Electronically Signed On 09-10-23 14:10:02 CDT by Margarito Hidalgo
== END 2023-09-09 19:58 | disposition home or self-care (01) ==
LOC: ER 16:50
DX: R51.9 Headache, unspecified (principal); R07.9 Chest pain, unspecified; J44.9 Chronic obstructive pulmonary disease, unspecified; I10 Essential (primary) hypertension; G89.29 Other chronic pain
CPT/HCPCS: 36415; 70450; 71045; 80048; 80076; 80164; 82077; 82550; 83735; 83880; 84484; 85025; 85610; 93005; 99285

== ENCOUNTER 2023-11-24 18:34 | Emergency (ER) | payer OTHER ==
[2023-11-24] MEDS ORDERED: FAMOTIDINE 20 MG/2 ML VIAL IV ONE (19:48)
[2023-11-24] MEDS ORDERED: ONDANSETRON 4 MG/2 ML VIAL ONE (19:48)
[2023-11-24 20:53] LABS: Absolute Basophils 0.1 K/uL (0-0.5); Absolute Lymphocytes (CBC) 1.1 K/uL (0.7-4.9); Absolute Monocytes 0.7 K/uL (0.1-1.3); Absolute Neutrophil 5.4 K/uL (1.8-8.0); Basophils % 0.9 % (0-1.3); Eosinophils % 0.1 % (0-4.4); Hematocrit 42.4 % (39.6-49.0); Hemoglobin 13.9 g/dL (13.6-17.9); Lymphocytes % 15.1 % (15.3-44.8); MCH 28.1 pg (27.0-35.0); MCHC 32.7 g/dL (32.0-36.0); MCV 85.7 fL (80-100); MPV 8.8 fL (7.6-11.3); Monocytes % 9.6 % (3.3-12.3); Neutrophils % 74.3 % (41.7-73.7); Platelets 299 thou/uL (152-406); RBC Red Blood Cell Count 4.95 M/uL (4.33-5.43)
--- NOTE | 2023-11-24 21:35 | EDPHYS ---
Physician Documentation [facility] Name: Bryan Graf Age: 73 yrs Sex: Male : 1950 Arrival Date: 11/24/2023 Time: 18:34 Bed IW10 Private MD: ED Physician Deejay Mercado HPI: 11/24 00:05 This 73 yrs old Male presents to ER via Wheelchair with complaints of Stomach pain. ms3 00:05 73-year-old male with past medical history of chronic pain, COPD, CVA, hypertension, ms3 migraine, pneumonia, seizures presents to the emergency department for diarrhea and vomiting that began on Saturday. Patient also notes he is having epigastric/midline discomfort. He denies any alleviating or inciting factors.. Historical: - Allergies: 11/23 19:07 Aspirin; nj1 19:07 PENICILLINS; nj1 - PMHx: 19:07 Chronic pain; COPD; CVA; Hypertension; Migraine; Pneumonia; Seizures; swelling and pain nj1 to L lower leg; - PSHx: 19:07 back surgery; heart surgery; Right hip surgery; nj1 - Immunization history:: Client reports having NOT received the Covid vaccine. - Infectious Disease History:: Denies. - Social history:: Smoking status: Patient reports the use of cigarette tobacco products, smokes one pack cigarettes per day. ROS: 11/24 00:05 Constitutional: Negative for fever, and chills. Neck: Negative for injury, pain, and ms3 swelling, Cardiovascular: Negative for chest pain, and palpitations. Respiratory: Negative for shortness of breath, cough, wheezing, and pleuritic chest pain, Skin: Negative for injury, rash, and discoloration, Abdomen/GI: Positive for abdominal pain, nausea, vomiting, and diarrhea, Exam: 00:05 Constitutional: This is a well developed, well nourished patient who is awake, alert, ms3 and in no acute distress. Head/Face: Normocephalic, atraumatic. Cardiovascular: Regular rate and rhythm with a normal S1 and S2. No gallops, murmurs, or rubs. Normal PMI, no JVD. No pulse deficits. Respiratory: Lungs have equal breath sounds bilaterally, clear to auscultation and percussion. No rales, rhonchi or wheezes noted. No increased work of breathing, no retractions or nasal flaring. 00:05 Abdomen/GI: Inspection: abdomen appears normal, Bowel sounds: normal, Palpation: mild abdominal tenderness, in the epigastric area, Vital Signs: 11/23 18:58 BP 152 / 75; Pulse 68; Resp 20; Temp 98.3(O); Pulse Ox 97% on R/A; Weight 72.57 kg (R); nj1 Height 5 ft. 8 in. ; Pain 9/10; 18:58 Body Mass Index 24.33 (72.57 kg, 172.72 cm) nj1 18:58 Pain Scale: Adult nj1 MDM: 19:20 Patient medically screened. ms3 11/24 00:05 Differential diagnosis: Nonspecific abd pain, gastritis, cholecystitis, pancreatitis. ms3 Data reviewed: vital signs, nurses notes, lab test result(s), and as a result, I will discharge patient. I considered the following discharge prescriptions or medication management in the emergency department Medications were administered in the Emergency Department. See MAR. Counseling: I had a detailed discussion with the patient and/or guardian regarding the historical points, exam findings, and any diagnostic results supporting the discharge/admit diagnosis, lab results. ED course: Patient states he would like to leave prior to completion of workup. CBC within normal limits. Discussed patient without full workup diagnosis may be missed leading to disability or . Patient understands and accepts risk. All questions were answered. Discussed with patient he may return at any time to continue his care. On reevaluation patient is ambulatory in the emergency department, alert and oriented x 4, no apparent distress, nontoxic-appearing, speaking full sentences. 11/23 19:21 Order name: CBC with Diff; Complete Time: 00:07 ms3 11/23 21:02 Order name: CBC Smear Scan; Complete Time: 00:07 EDMS 11/23 19:21 Order name: IV Saline Lock ms3 11/23 19:21 Order name: Labs collected and sent ms3 11/23 21:07 Order name: Misc. Order: lab redraw sp Administered Medications: 11/23 22:06 Not Given (Patient Refused): [id number] mg IVP once; dilute with 10 mL 0.9% NaCl; jm12 give over 2 minutes 22:06 Not Given (Patient Refused): ondansetron 4 mg IVP once; over 2 minutes jm12 Disposition Summary: 11/24/23 21:34 Discharge Ordered Notes: Location: Home ms3 Condition: Stable ms3 Diagnosis - Diarrhea, unspecified ms3 - Vomiting ms3 Followup: ms3 - With: Private Physician - When: 2 - 3 days - Reason: Recheck today's complaints Discharge Instructions: - Discharge Summary Sheet ms3 - Diarrhea, Adult ms3 - Vomiting, Adult ms3 Forms: - Medication Reconciliation Form ms3 - Antibiotic Education ms3 - Prescription Opioid Use ms3 - Patient Portal Instructions ms3 - Leadership Thank You Letter ms3 Signatures: Dispatcher [employer] EDNJ Aylin Sexton Marcus, DO DO ms3 Katherine Ojeda RN RN nj1 Kenzie Farias RN jm12 Corrections: (The following items were deleted from the chart) 21:45 19:21 Abdomen Pelvis W Con+CT.RAD.BRZ ordered. EDNJ EDNJ 11/24 00:08 00:05 ED course: Patient states he would like to leave prior to completion of workup. ms3 CBC. ms3
--- NOTE | 2023-11-24 21:35 | ER ---
Nurse's Notes [facility] Name: Bryan Graf Age: 73 yrs Sex: Male : 1950 Arrival Date: 11/24/2023 Time: 18:34 Bed IW10 Private MD: Diagnosis: Diarrhea, unspecified;Vomiting Presentation: 11/23 18:58 Chief complaint: Patient states: Abdominal pain for the last couple of days, not nj1 better. Has had nausea, vomiting and diarrhea with it. Not really eating. 18:58 Coronavirus screen: Vaccine status: Patient reports being unvaccinated. Ebola Screen: nj1 Patient denies travel to an Ebola-affected area in the 21 days before illness onset. Initial Sepsis Screen: Does the patient meet any 2 criteria? No. Patient's initial sepsis screen is negative. Does the patient have a suspected source of infection? No. Patient's initial sepsis screen is negative. Risk Assessment: Do you want to hurt yourself or someone else? Patient reports no desire to harm self or others. Onset of symptoms was November 2023. 18:58 Method Of Arrival: Wheelchair nj1 18:58 Acuity: GELACIO 3 nj1 20:18 Chief complaint:. jm12 Historical: - Allergies: 19:07 Aspirin; nj1 19:07 PENICILLINS; nj1 - PMHx: 19:07 Chronic pain; COPD; CVA; Hypertension; Migraine; Pneumonia; Seizures; swelling and pain nj1 to L lower leg; - PSHx: 19:07 back surgery; heart surgery; Right hip surgery; nj1 - Immunization history:: Client reports having NOT received the Covid vaccine. - Infectious Disease History:: Denies. - Social history:: Smoking status: Patient reports the use of cigarette tobacco products, smokes one pack cigarettes per day. Assessment: 19:29 General: Appears in no apparent distress. Behavior is calm, cooperative. Pain: jm12 Complains of pain in abdomen. 21:00 Reassessment: patient refused ultrasound IV. ha1 21:45 Reassessment: discharge instruction given by Dr. Mercado. Dr. Mercado provided education on ha1 the need to stay and completed care. Pt. refused to stay. Vital Signs: 18:58 BP 152 / 75; Pulse 68; Resp 20; Temp 98.3(O); Pulse Ox 97% on R/A; Weight 72.57 kg (R); nj1 Height 5 ft. 8 in. ; Pain 9/10; 18:58 Body Mass Index 24.33 (72.57 kg, 172.72 cm) nj1 18:58 Pain Scale: Adult nj1 ED Course: 18:38 Patient arrived in ED. ra3 19:03 Deejay Mercado DO is Attending Physician. ms3 19:07 Triage completed. nj1 19:07 Arm band placed on right wrist. nj1 19:59 Missed attempt(s): 22 gauge Bleeding controlled, band aid applied, catheter tip intact. [facility] 20:50 Missed attempt(s): 22 gauge in right antecubital area. Bleeding controlled, band aid kmf applied, catheter tip intact. 20:50 CBC with Diff Sent. f 20:50 CMP Sent. kmf 20:50 Lipase Sent. [facility] 20:51 Initial lab(s) drawn, by oh, sent to lab. [facility] Administered Medications: 22:06 Not Given (Patient Refused): [id number] mg IVP once; dilute with 10 mL 0.9% NaCl; [facility] give over 2 minutes 22:06 Not Given (Patient Refused): ondansetron 4 mg IVP once; over 2 minutes [facility] Outcome: 21:19 Condition: stable [facility] 21:34 Discharge ordered by . ms3 21:40 Discharged to home ambulatory, [facility] 21:40 Condition: stable 21:40 Discharge instructions given to patient, Instructed on discharge instructions, [facility] Demonstrated understanding of instructions, follow-up care, 22:08 Patient left the ED. [facility] Signatures: Deejay Mercado DO DO ms3 Teresa Boles, RN RN 1 Katherine Ojeda RN RN nj1 Aisha Willson [facility] Skye Mederos ra3 Kenzie Farias, RN RN [facility] Corrections: (The following items were deleted from the chart) 22:10 21:19 AMA Left before signing form, [place] [id number]
[2023-11-24 21:37] LABS: Anisocytosis 1+; Blood Morphology Comment NOTED (NOT SEEN); Hypochromasia 1+; Platelet Estimate ADEQ; White Blood Cell Scan OK (OK)
[2023-11-24 22:55] VITALS: BP 152/75; TEMP 98.3; O2SAT 97
== END 2023-11-24 22:08 | disposition home or self-care (01) ==
LOC: ER 18:34
DX: R19.7 Diarrhea, unspecified (principal); R11.10 Vomiting, unspecified; R10.13 Epigastric pain; F17.210 Nicotine dependence, cigarettes, uncomplicated
CPT/HCPCS: 85025; 99283; J2405

== ENCOUNTER 2023-12-16 06:35 | Emergency (ER) | payer OTHER ==
--- NOTE | 2023-12-16 07:13 | RAD REPORT ---
EXAM DESCRIPTION: CT - [id number] - 12/16/2023 7:04 am CLINICAL HISTORY: Trauma, head and neck injury. fall COMPARISON: Head C Spine Mpr Wo Con dated 09/07/2023; Neck Angio dated 05/20/2022; Soft Tissue Neck W/C ontr dated 06/29/2016 TECHNIQUE: Axial 5 mm thick images of the head were obtained. Axial 2 mm thick images of the cervical spine were obtained with sagittal and coronal reconstruction images generated and reviewed. All CT scans are performed using dose optimization technique as appropriate and may include automated exposure control or mA/KV adjustment according to patient size. FINDINGS: CT HEAD WITHOUT CONTRAST: No acute hemorrhage, hydrocephalus or extra-axial collection is identified.No areas of brain edema or midline shift. The paranasal sinuses and mastoids are clear.The calvarium is intact. CT CERVICAL SPINE WITHOUT CONTRAST: No fracture or subluxation.No prevertebral soft tissues swelling is identified. Multilevel degenerati ve changes are present in the spine. Varying degrees neural foraminal narrowing cyst severe on the ri ght C3-4 and on the left and C5-6 and C6-7. IMPRESSION: No acute intracranial or cervical spine findings.
--- NOTE | 2023-12-16 07:17 | RAD REPORT ---
EXAM DESCRIPTION: CT - Spine Lumbar Wo Con - 12/16/2023 7:05 am CLINICAL HISTORY: PAIN COMPARISON: LUMBAR SPINE W O CONTRAST dated 03/07/2012; LUMBAR SPINE W O CONTRAST dated 06/02/2010 TECHNIQUE: Axial noncontrast CT imaging of the lumbar spine was performed with coronal and sagittal re-formatted images. All CT scans are performed using dose optimization technique as appropriate and may include automated exposure control or mA/KV adjustment according to patient size. FINDINGS: No acute lumbar spine fracture seen. No aggressive marrow pattern or malalignment. Spacer at L4-5 . Paraspinal tissues are normal in thickness. No paraspinal abscess or hematoma seen. Atherosclerosis. Intervertebral disc disease assessment is inherently limited by CT. Within these limitations, no high -grade canal stenosis suspected. Broad-based disc bulge present at L3-4 results in mild central spina l stenosis. Mild neural foraminal narrowing is present bilaterally L3-4. IMPRESSION: No acute fracture of the lumbar spine.
--- NOTE | 2023-12-16 07:20 | RAD REPORT ---
EXAM DESCRIPTION: RAD - Chest Single View - 12/16/2023 7:14 am CLINICAL HISTORY: fall COMPARISON: Chest Single View dated 09/09/2023; Chest Single View dated 09/08/2023; Chest Single View dated 09/06/2023; Chest Single View dated 08/06/2023 FINDINGS: Lines: None. Lungs: No evidence of edema or pneumonia. Chronic coarsening of the pulmonary interstitium. Pleural: No significant pleural effusions or pneumothorax. Cardiac: Cardiomegaly. Sternotomy. Mediastinum: Within normal limits. Bones: No acute fractures. Other: None IMPRESSION: No acute cardiopulmonary disease.
--- NOTE | 2023-12-16 07:21 | RAD REPORT ---
EXAM DESCRIPTION: RAD - Pelvis - 12/16/2023 7:16 am CLINICAL HISTORY: fall COMPARISON: Pelvis dated 09/12/2022 FINDINGS/IMPRESSION: No acute fracture. No malalignment. No significant focal degenerative changes. Atherosclerosis
[2023-12-16] MEDS ORDERED: ACETAMINOPHEN 325 MG TABLET ONE (07:29)
--- NOTE | 2023-12-16 07:30 | ER ---
Nurse's Notes [facility] Name: Bryan Graf Age: 73 yrs Sex: Male : 1950 Arrival Date: 12/16/2023 Time: 06:35 Bed 2 Private MD: Diagnosis: Fall, lumbar contusion Presentation: 12/15 06:45 Chief complaint: Patient states: I fell this morning and my lower back is in so much bm8 pain. EMS states: called out for a fall. Pt has had multiple falls due to a previous and chronic back pain. Coronavirus screen: At this time, the client does not indicate any symptoms associated with coronavirus-19. Ebola Screen: Patient negative for fever greater than or equal to 101.5 degrees Fahrenheit, and additional compatible Ebola Virus Disease symptoms Patient denies exposure to infectious person. Patient denies travel to an Ebola-affected area in the 21 days before illness onset. No symptoms or risks identified at this time. Initial Sepsis Screen: Does the patient meet any 2 criteria? No. Patient's initial sepsis screen is negative. Does the patient have a suspected source of infection? No. Patient's initial sepsis screen is negative. Risk Assessment: Do you want to hurt yourself or someone else? Patient reports no desire to harm self or others. Onset of symptoms was December 16, 2023 at 05:30. 06:45 Method Of Arrival: EMS: [facility] 06:45 Acuity: GELACIO 3 bm8 Triage Assessment: 06:48 General: Appears distressed, uncomfortable, Behavior is cooperative, appropriate for bm8 age. Pain: Complains of pain in back Pain does not radiate. Pain currently is 9 out of 10 on a pain scale. Quality of pain is described as crampy, sharp. EENT: No signs and/or symptoms were reported regarding the EENT system. Neuro: No deficits noted. Level of Consciousness is awake, alert, obeys commands, Oriented to person, place, time, situation. Cardiovascular: Denies chest pain, Capillary refill < 3 seconds Patient's skin is warm and dry. Respiratory: Airway is patent Respiratory effort is even, unlabored, Respiratory pattern is regular, symmetrical. GI: No signs and/or symptoms were reported involving the gastrointestinal system. : No signs and/or symptoms were reported regarding the genitourinary system. Derm: No signs and/or symptoms reported regarding the dermatologic system. Musculoskeletal: Capillary refill < 3 seconds, in bilateral fingers. toes. Tenderness present in back Reports pain in back Pain is 9 out of 10 on a pain scale. Historical: - Allergies: 06:47 Aspirin; bm8 06:47 PENICILLINS; bm8 - Home Meds: 06:47 divalproex 250 mg Oral tablet [Active]; Keppra 1 Oral tablet 1 tab 2 times per day bm8 [Active]; - PMHx: 06:47 Chronic pain; COPD; CVA; Hypertension; Migraine; Pneumonia; Seizures; swelling and pain bm8 to L lower leg; - PSHx: 06:47 back surgery; Right hip surgery; heart surgery; bm8 - Immunization history:: Adult Immunizations unknown. - Infectious Disease History:: Denies. - Social history:: Smoking status: Patient reports the use of cigarette tobacco products. Screenin:52 [facility] ED Fall Risk Assessment (Adult) History of falling in the last 3 months, bm8 including since admission Yes- fall prone (multiple falls) (3 pts) Confusion or Disorientation No (0 pts) Intoxicated or Sedated No (0 pts) Impaired Gait Yes (1 pt) Mobility Assist Device Used Yes (1 pt) Altered Elimination No (0 pt) Score/Fall Risk Level 3 or more points = High Risk Oriented to surroundings, Maintained a safe environment, Educated pt \T\ family on fall prevention, incl call for assistance when getting out of bed, Assessed \T\ reinforced patient's understanding of fall precautions, Hourly rounding (assess needs \T\ fall precautionary measures) done, Used ambulatory aids as needed (educated on \T\ assisted with), Used gait belt as appropriate Implemented a Fall Risk Plan of Care. Abuse screen: Denies threats or abuse. Nutritional screening: No deficits noted. Tuberculosis screening: No symptoms or risk factors identified. Assessment: 06:53 Reassessment: see triage note. bm8 07:39 Reassessment: Notified spouse of discharge. Spouse attempting to find ride for pt home. dd2 Neuro: No deficits noted. Level of Consciousness is awake, alert, obeys commands, Oriented to person, place, situation. Vital Signs: 06:45 BP 165 / 76; Pulse 62; Resp 18; Temp 97.9; Pulse Ox 96% ; Weight 70.31 kg; Height 5 ft. bm8 7 in. ; Pain 9/10; 07:33 BP 180 / 80; Pulse 58; Resp 16; Pulse Ox 59% ; dd2 06:45 Body Mass Index 24.28 (70.31 kg, 170.18 cm) bm8 06:45 Pain Scale: Adult bm8 ED Course: 06:38 Patient arrived in ED. bm8 06:45 Lito Woo, RN is Primary Nurse. bm8 06:47 Triage completed. bm8 06:48 Arm band placed on right wrist. bm8 06:52 Patient has correct armband on for positive identification. Bed in low position. Call bm8 light in reach. Side rails up X2. Client placed on continuous cardiac and pulse oximetry monitoring. NIBP monitoring applied. Pulse ox on. NIBP on. Door closed. Noise minimized. Warm blanket given. Pillow given. Verbal reassurance given. Head of bed elevated. 06:52 No provider procedures requiring assistance completed. bm8 07:03 Report given to Shilpi Marquez, JOSEPH. bm8 07:05 Faustino Griffin MD is Attending Physician. sp3 07:06 CT Lumbar Spine Wo Con In Process Unspecified. EDMS 07:06 CT Head C Spine In Process Unspecified. EDMS 07:14 CXR XRAY In Process Unspecified. EDMS 07:14 Pelvis XRAY In Process Unspecified. EDMS 07:46 Assisted with urinal. kc6 07:49 Provided Education on: call light. dd2 07:49 Patient did not have IV access during this emergency room visit. dd2 Administered Medications: 07:29 Drug: Acetaminophen PO 650 mg PO once Route: PO; dd2 07:49 Follow up: Response: No adverse reaction dd2 Medication: 06:52 VIS not applicable for this client. bm8 Outcome: 07:29 Discharge ordered by . sp3 07:48 Discharged to home via wheelchair, with family, dd2 07:48 Condition: stable 07:48 Discharge instructions given to patient, Instructed on discharge instructions, follow up and referral plans. safety practices, Fall risk and safety Demonstrated understanding of instructions, follow-up care, fall risk and safety 09:01 Patient left the ED. dd2 Signatures: Dispatcher [employer] EDFaustino Montemayor MD MD sp3 Alma Maurer RN RN kc6 Lito Woo, RN RN bm8 BARBRA SEARS, RN RN dd2
--- NOTE | 2023-12-16 07:30 | EDPHYS ---
Physician Documentation [facility] Name: Bryan Graf Age: 73 yrs Sex: Male : 1950 Arrival Date: 12/16/2023 Time: 06:35 Bed 2 Private MD: ED Physician Faustino Griffin HPI: 12/15 07:18 This 73 yrs old Male presents to ER via EMS with complaints of Back Pain. sp3 07:18 72-year-old male with history of seizure disorder, prior CVA, COPD, hypertension, sp3 chronic pain now presents to the ED with chief complaint mechanical fall with pain to the lower back in the setting of chronic pain. No neurological symptoms, loss of bowel or bladder or other symptoms reported. ROS, history physical limited secondary to baseline altered mental status which is well-documented in the medical record. Patient in no acute distress.. Historical: - Allergies: 06:47 Aspirin; bm8 06:47 PENICILLINS; bm8 - Home Meds: 06:47 divalproex 250 mg Oral tablet [Active]; Keppra 1 Oral tablet 1 tab 2 times per day bm8 [Active]; - PMHx: 06:47 Chronic pain; COPD; CVA; Hypertension; Migraine; Pneumonia; Seizures; swelling and pain bm8 to L lower leg; - PSHx: 06:47 back surgery; Right hip surgery; heart surgery; bm8 - Immunization history:: Adult Immunizations unknown. - Infectious Disease History:: Denies. - Social history:: Smoking status: Patient reports the use of cigarette tobacco products. ROS: 07:27 Unable to obtain ROS due to altered mental status, baseline dementia, sp3 Exam: 07:28 Constitutional: This is a well developed, well nourished patient who is awake, alert, sp3 and in no acute distress. Head/Face: Normocephalic, atraumatic. Eyes: Pupils equal round and reactive to light, extra-ocular motions intact. Lids and lashes normal. Conjunctiva and sclera are non-icteric and not injected. Cornea within normal limits. Periorbital areas with no swelling, redness, or edema. Neck: Trachea midline, no thyromegaly or masses palpated, and no cervical lymphadenopathy. Supple, full range of motion without nuchal rigidity, or vertebral point tenderness. No Meningismus. Chest/axilla: Normal chest wall appearance and motion. Nontender with no deformity. No lesions are appreciated. Cardiovascular: Regular rate and rhythm with a normal S1 and S2. No gallops, murmurs, or rubs. Normal PMI, no JVD. No pulse deficits. Respiratory: Lungs have equal breath sounds bilaterally, clear to auscultation and percussion. No rales, rhonchi or wheezes noted. No increased work of breathing, no retractions or nasal flaring. Abdomen/GI: Soft, non-tender, with normal bowel sounds. No distension or tympany. No guarding or rebound. No evidence of tenderness throughout. Back: No spinal tenderness. No costovertebral tenderness. Full range of motion. MS/ Extremity: Pulses equal, no cyanosis. Neurovascular intact. Full, normal range of motion. Neuro: Awake and alert, GCS 15, oriented to person, place, time, and situation. Cranial nerves II-XII grossly intact. Motor strength 5/5 in all extremities. Sensory grossly intact. Cerebellar exam normal. Normal gait. Psych: Awake, alert, with orientation to person, place and time. Behavior, mood, and affect are within normal limits. 07:28 Neuro: Speech slow however comprehensible. Patient does respond appropriately to questions., Vital Signs: 06:45 BP 165 / 76; Pulse 62; Resp 18; Temp 97.9; Pulse Ox 96% ; Weight 70.31 kg; Height 5 ft. bm8 7 in. ; Pain 9/10; 07:33 BP 180 / 80; Pulse 58; Resp 16; Pulse Ox 59% ; dd2 06:45 Body Mass Index 24.28 (70.31 kg, 170.18 cm) bm8 06:45 Pain Scale: Adult bm8 MDM: 07:05 Patient medically screened. sp3 07:28 Data reviewed: vital signs, nurses notes, radiologic studies. ED course: 73-year-old sp3 male with mechanical fall. Differential diagnosis includes contusion versus fracture versus other disc injury. I am not suspecting any medical prodrome or medical event prior to the fall. CT scans of the head, L-spine and x-rays of the chest and pelvis are all negative. Will treat with Tylenol 650 p.o. and safely discharge patient home with PCP follow-up as needed. Fall precautions given.. 12/15 06:44 Order name: CT Lumbar Spine Wo Con; Complete Time: 07:21 ec2 12/15 06:45 Order name: CXR XRAY; Complete Time: 07:21 ec2 12/15 06:45 Order name: Pelvis XRAY; Complete Time: 07:21 ec2 12/15 06:55 Order name: CT Head C Spine; Complete Time: 07:21 ec2 Administered Medications: 07:29 Drug: Acetaminophen PO 650 mg PO once Route: PO; dd2 07:49 Follow up: Response: No adverse reaction dd2 Disposition Summary: 12/16/23 07:29 Discharge Ordered Notes: Location: Home sp3 Condition: Stable sp3 Diagnosis - Fall, lumbar contusion sp3 Followup: sp3 - With: Private Physician - When: Upon discharge from the Emergency Department - Reason: Continuance of care Discharge Instructions: - Discharge Summary Sheet sp3 - Fall Prevention in the Home, Adult, [id number] sp3 Forms: - Medication Reconciliation Form sp3 - Antibiotic Education sp3 - Prescription Opioid Use sp3 - Patient Portal Instructions sp3 - Leadership Thank You Letter sp3 Signatures: Dispatcher [employer] EDKS Faustino Griffin MD MD sp3 Lito Woo, RN RN bm8 BARBRA SEARS RN RN dd2 Corrections: (The following items were deleted from the chart) 06:45 06:45 Pelvis+RAD.RAD.BRZ ordered. EDKS EDMS 07:27 07:18 72-year-old male with history of seizure disorder, prior CVA, COPD, hypertension, sp3 chronic pain now presents to the ED. sp3
[2023-12-16 09:07] VITALS: TEMP 97.9
[2023-12-16 09:09] VITALS: BP 180/80; O2SAT 59
== END 2023-12-16 09:01 | disposition home or self-care (01) ==
LOC: ER 06:35
DX: S30.0XXA Contusion of lower back and pelvis, initial encounter (principal); W18.30XA Fall on same level, unspecified, initial encounter; I10 Essential (primary) hypertension; J44.9 Chronic obstructive pulmonary disease, unspecified; Z86.73 Personal history of transient ischemic attack (TIA), and cerebral infarction without residual deficits
CPT/HCPCS: 70450; 71045; 72125; 72131; 72170; 99284

== ENCOUNTER 2024-01-13 11:30 | Emergency (ER) | payer OTHER ==
[2024-01-13] MEDS ORDERED: HYDROCODONE/APAP 7.5/325 MG TAB ONE (12:25)
--- NOTE | 2024-01-13 13:33 | RAD REPORT ---
Exam:Elbow Right 3 View HISTORY: Right elbow pain FINDINGS: Lateral view is suboptimal as the elbow is somewhat rotated. No gross fracture or dislocation seen
--- NOTE | 2024-01-13 13:38 | RAD REPORT ---
Exam:Wrist Right 3 View HISTORY: Right wrist pain FINDINGS: No fracture or dislocation seen involving the wrist. Osteoporosis Possible dislocation first proximal phalanx. This area is not well imaged on this exam and may be a n ormal finding having an abnormal appearance secondary to positioning. If the patient has clinical symptoms to suggest a dislocation then dedicated plain films of the right and would be recommended
--- NOTE | 2024-01-13 13:58 | EDPHYS ---
Physician Documentation [facility] Name: Bryan Graf Age: 73 yrs Sex: Male : 1950 Arrival Date: 01/13/2024 Time: 11:30 Bed 11 Private MD: ED Physician Roe Yang HPI: 01/12 12:05 This 73 yrs old Male presents to ER via Wheelchair with complaints of Wrist Pain. cp 12:05 The patient or guardian reports pain. The complaints affect the right wrist diffusely. cp 12:05 Context: resulted from a fall. cp 12:05 Associated signs and symptoms: Pertinent positives: right hand and right elbow pain. cp Historical: - Allergies: 11:56 Aspirin; iw 11:56 PENICILLINS; iw - PMHx: 11:56 Chronic pain; COPD; CVA; Hypertension; Migraine; Pneumonia; Seizures; swelling and pain iw to L lower leg; - PSHx: 11:56 back surgery; heart surgery; Right hip surgery; iw - Immunization history:: Adult Immunizations up to date. - Infectious Disease History:: Denies. - Social history:: Smoking status: Patient reports the use of cigarette tobacco products, smokes one pack cigarettes per day. ROS: 12:10 MS/extremity: Positive for pain, of the right wrist and right elbow and right hand, cp Negative for deformity, paresthesias, 12:10 Constitutional: Negative for fever, cp 12:10 Cardiovascular: Negative for chest pain, 12:10 Respiratory: Negative for cough, shortness of breath, wheezing, 12:10 Abdomen/GI: Negative for abdominal pain, 12:10 Constitutional: HX per hpi cp 12:10 All other systems are negative, cp Exam: 12:15 Constitutional: The patient appears in no acute distress, alert, awake, well developed, cp well nourished, uncomfortable, 12:15 Head/Face: Normocephalic, atraumatic. cp 12:15 Chest/axilla: Inspection: normal, 12:15 Cardiovascular: Rate: normal, Pulses: Pulses are 2+ in right radial artery. 12:15 Respiratory: the patient does not display signs of respiratory distress, Respirations: normal, no use of accessory muscles, no retractions, Breath sounds: are clear throughout, no decreased breath sounds, 12:15 Abdomen/GI: Inspection: abdomen appears normal, 12:15 Musculoskeletal/extremity: Extremities: grossly normal except: noted in the right wrist: pain, tenderness, There is no evidence of decreased ROM, deformity, ROM: limited passive range of motion due to pain, in the right hand and right wrist, Pulses: noted to be 2+ in the right radial artery, the right wrist Severe pain noted. Vital Signs: 11:56 BP 130 / 65; Pulse 69; Resp 18; Temp 97.9; Pulse Ox 98% on R/A; Weight 68.04 kg; Height iw 5 ft. 8 in. ; Pain 10/10; 11:56 Body Mass Index 22.81 (68.04 kg, 172.72 cm) iw 11:56 Pain Scale: Adult iw Procedures: 14:15 Splinting: Splint applied to right wrist using Orthoglass splint, ulna gutter type. cp applied by nurse. Examined by me, post splint application: neurovascular intact, Patient tolerated well. MDM: 11:56 Patient medically screened. cp 13:00 Differential diagnosis: closed fracture, tendonitis, sprain. cp 13:57 Data reviewed: vital signs, nurses notes, radiologic studies, plain films, and as a cp result, I will discharge patient. 13:57 I considered the following discharge prescriptions or medication management in the emergency department Medications were administered in the Emergency Department. See MAR. Counseling: I had a detailed discussion with the patient and/or guardian regarding the historical points, exam findings, and any diagnostic results supporting the discharge/admit diagnosis, radiology results, the need for outpatient follow up, a orthopedic surgeon, to return to the emergency department if symptoms worsen or persist or if there are any questions or concerns that arise at home. Response to treatment: the patient's symptoms have markedly improved after treatment, and as a result, I will discharge patient. 01/12 12:01 Order name: XRAY Elbow RIGHT 3 view; Complete Time: 13:40 cp 01/12 13:40 Interpretation: Report reviewed. cp 01/12 12:01 Order name: XRAY Wrist RIGHT 3 view; Complete Time: 13:40 cp 01/12 13:40 Interpretation: Report reviewed. cp 01/12 13:53 Order name: Splint - Volar Wrist Splint; Complete Time: 14:12 cp 01/12 14:18 Order name: Sling; Complete Time: 14:23 cp Administered Medications: 12:29 Drug: Hydrocodone-Acetaminophen PO (7.5 mg-325 mg) 1 tabs PO once; RASS on ADMIN: ss Combtv4, Very Agttd3, Agttd2, Rstlss1, AlertClm0, Drwsy-1, Lt Sdtn-2, Mod Sdtn-3, Dp Sdtn-4, UnArsble-5 Route: PO; 14:03 Follow up: Response: No adverse reaction; Pain is decreased; RASS: Alert and Calm (0) ss 14:23 Drug: fentaNYL (PF) IM 25 mcg IM once Route: IM; Site: left deltoid; ss 14:32 Follow up: Response: No adverse reaction; RASS: Alert and Calm (0) ss Disposition Summary: 01/13/24 13:58 Discharge Ordered Notes: Location: Home cp Problem: an ongoing problem cp Symptoms: have improved cp Condition: Stable cp Diagnosis - Pain in right wrist cp - Pain in right elbow cp Followup: cp - With: Marcial Deng MD - When: 5 - 6 days - Reason: Recheck today's complaints Discharge Instructions: - Discharge Summary Sheet cp - Wrist Pain, Adult cp Forms: - Medication Reconciliation Form cp - Antibiotic Education cp - Prescription Opioid Use cp - Patient Portal Instructions cp - Leadership Thank You Letter cp Addendum: 01/15/2024 17:05 Co-signature as Attending Physician, Roe Yang MD I reviewed the patient's care r n provided by the Advanced Practice Provider and agree with the diagnosis and treatment plan. Signatures: Dispatcher [employer] Zahra Beverly RN RN iw Nieto, Roman, MD MD rn Blanchard, Shelby, RN RN ss Page, Corey, PA PA cp Corrections: (The following items were deleted from the chart) 01/12 12:01 12:01 Wrist Right 3 View+RAD.RAD.BRZ ordered. MAGI SOW 01/13 14:11 09 12:10 All other systems are negative, cp cp
--- NOTE | 2024-01-13 13:58 | ER ---
Nurse's Notes [facility] Name: Bryan Graf Age: 73 yrs Sex: Male : 1950 Arrival Date: 01/13/2024 Time: 11:30 Bed 11 Private MD: Diagnosis: Pain in right wrist;Pain in right elbow Presentation: 01/12 11:44 Chief complaint: Spouse and/or significant other states: fell this morning, fell on iw right wrist and elbow , was seen here recently for fall on right wrist. Coronavirus screen: At this time, the client does not indicate any symptoms associated with coronavirus-19. Initial Sepsis Screen: Does the patient meet any 2 criteria? No. Patient's initial sepsis screen is negative. Does the patient have a suspected source of infection? No. Patient's initial sepsis screen is negative. 11:44 Method Of Arrival: Wheelchair iw 11:44 Acuity: GELACIO 4 iw 11:58 Ebola Screen: No symptoms or risks identified at this time. Risk Assessment: Do you iw want to hurt yourself or someone else? Patient reports no desire to harm self or others. Onset of symptoms was January 13, 2024. 11:58 Acuity: GELACIO 3 iw Historical: - Allergies: 11:56 Aspirin; iw 11:56 PENICILLINS; iw - PMHx: 11:56 Chronic pain; COPD; CVA; Hypertension; Migraine; Pneumonia; Seizures; swelling and pain iw to L lower leg; - PSHx: 11:56 back surgery; heart surgery; Right hip surgery; iw - Immunization history:: Adult Immunizations up to date. - Infectious Disease History:: Denies. - Social history:: Smoking status: Patient reports the use of cigarette tobacco products, smokes one pack cigarettes per day. Screenin:04 [facility] ED Fall Risk Assessment (Adult) History of falling in the last 3 months, ss including since admission Yes- single mechanical fall (1 pt) Confusion or Disorientation No (0 pts) Intoxicated or Sedated No (0 pts) Impaired Gait Yes (1 pt) Mobility Assist Device Used Yes (1 pt) Altered Elimination No (0 pt) Score/Fall Risk Level 0 - 2 = Low Risk Oriented to surroundings, Maintained a safe environment. Abuse screen: Denies threats or abuse. Denies injuries from another. Nutritional screening: No deficits noted. Tuberculosis screening: Never had TB. Assessment: 12:04 General: Appears in no apparent distress. comfortable, Behavior is calm, cooperative. ss Pain: Complains of pain in R hand Pain currently is 9 out of 10 on a pain scale. Quality of pain is described as tender, Pain began this am Is continuous. Neuro: Level of Consciousness is awake, alert. Cardiovascular: Pulses are palpable in right radial artery and left radial artery. Respiratory: Airway is patent Respiratory effort is even, unlabored, Respiratory pattern is regular, symmetrical. Derm: Skin is pink, warm \T\ dry. 12:29 Reassessment: ice pack applied. ss 13:18 Reassessment: Patient appears in no apparent distress at this time. XRAY at bedside ss RASS 0. Neuro: Level of Consciousness is awake, alert, obeys commands. 14:12 Reassessment: splint placed to R forearm. CMS intact. Checked by ROBB Hoff. ss Vital Signs: 11:56 BP 130 / 65; Pulse 69; Resp 18; Temp 97.9; Pulse Ox 98% on R/A; Weight 68.04 kg; Height iw 5 ft. 8 in. ; Pain 10/10; 11:56 Body Mass Index 22.81 (68.04 kg, 172.72 cm) iw 11:56 Pain Scale: Adult iw ED Course: 11:37 Patient arrived in ED. mg5 11:37 Luis Eduardo Sanchez PA is PHCP. cp 11:37 Roe Yang MD is Attending Physician. cp 11:44 Triage completed. iw 11:57 Arm band placed on. iw 12:04 Cheli Brantley, RN is Primary Nurse. ss 12:04 Patient has correct armband on for positive identification. ss 12:29 Wound care: ice pack applied. ss 13:27 XRAY Elbow RIGHT 3 view In Process Unspecified. EDMS 13:27 XRAY Wrist RIGHT 3 view In Process Unspecified. EDMS 13:57 Marcial Deng MD is Referral Physician. cp 14:12 Orthoglass splint: Volar splint applied on right arm. ss 14:23 Sling applied to left arm. ss 14:32 No provider procedures requiring assistance completed. Patient did not have IV access ss during this emergency room visit. Administered Medications: 12:29 Drug: Hydrocodone-Acetaminophen PO (7.5 mg-325 mg) 1 tabs PO once; RASS on ADMIN: ss Combtv4, Very Agttd3, Agttd2, Rstlss1, AlertClm0, Drwsy-1, Lt Sdtn-2, Mod Sdtn-3, Dp Sdtn-4, UnArsble-5 Route: PO; 14:03 Follow up: Response: No adverse reaction; Pain is decreased; RASS: Alert and Calm (0) 14:23 Drug: fentaNYL (PF) IM 25 mcg IM once Route: IM; Site: left deltoid; 14:32 Follow up: Response: No adverse reaction; RASS: Alert and Calm (0) Medication: 12:04 VIS not applicable for this client. Outcome: 13:58 Discharge ordered by MD. cp 14:32 Discharged to home via wheelchair, with family, 14:32 Condition: good 14:32 Discharge instructions given to patient, Instructed on discharge instructions, follow up and referral plans. Demonstrated understanding of instructions, follow-up care, 14:32 Patient left the ED. Signatures: Dispatcher [employer] Zahra Beverly, JOSEPH RUIZ Cheli Brantley RN RN Luis Eduardo Hess PA PA Sofía Wylie mg5
[2024-01-13] MEDS ORDERED: FENTANYL CITR 100 MCG/2 ML ONE (14:14)
[2024-01-13 14:38] VITALS: BP 130/65; TEMP 97.9; O2SAT 98
== END 2024-01-13 14:32 | disposition home or self-care (01) ==
LOC: ER 11:30
PROC: 2W3CX1Z Immobilization of Right Lower Arm using Splint (ICD-10-PCS; principal; 2024-01-13)
DX: M25.531 Pain in right wrist (principal); M25.521 Pain in right elbow
CPT/HCPCS: 73080; 73110; 29125; J3010; 96372; 99284

== ENCOUNTER 2024-03-21 16:22 | Emergency (ER) | payer OTHER ==
[2024-03-21] MEDS ORDERED: ONDANSETRON 4 MG/2 ML VIAL ONE (17:24)
[2024-03-21] MEDS ORDERED: NA CHLORIDE 0.9% 1,000 ML ONE (17:24)
[2024-03-21] MEDS ORDERED: MORPHINE 4 MG/ML SYR ONE (17:24)
[2024-03-21 17:36] LABS: Absolute Basophils 0.1 K/uL (0-0.5); Absolute Eosinophils 0.1 K/uL (0-0.5); Absolute Lymphocytes (CBC) 1.5 K/uL (0.7-4.9); Absolute Neutrophil 5.5 K/uL (1.8-8.0); Basophils % 1.6 % (0-1.3); Eosinophils % 0.8 % (0-4.4); Hematocrit 38.7 % (39.6-49.0); Hemoglobin 12.9 g/dL (13.6-17.9); Lymphocytes % 18.2 % (15.3-44.8); MCH 30.9 pg (27.0-35.0); MCHC 33.4 g/dL (32.0-36.0); MCV 92.6 fL (80-100); MPV 8.6 fL (7.6-11.3); Monocytes % 12.7 % (3.3-12.3); Neutrophils % 66.7 % (41.7-73.7); Platelets 187 thou/uL (152-406); RBC Red Blood Cell Count 4.18 M/uL (4.33-5.43); Red Cell Distribution Width 20.8 % (12.1-15.2)
[2024-03-21 19:30] LABS: ALT/SGPT < 14 U/L (16-61); AST/SGOT < 10 U/L (15-37); Albumin 2.3 g/dL (3.4-5.0); Albumin/Globulin Ratio 0.7 (1.1-1.8); Alkaline Phosphatase 53 U/L (45-117); Anion Gap 5.7 mEq/L (5.0-15.0); BUN Blood Urea Nitrogen 10 mg/dL (7-18); Bicarbonate 26 mEq/L (21-32); Bilirubin Total < 0.2 mg/dL (0.2-1.0); Globulin 3.3 g/dL (2.3-3.5); Glomerular Filtration Rate 108 ml/min (=/>90); Glucose Level 76 mg/dL (74-106); Lipase 44 U/L (13-75); Potassium 3.7 mEq/L (3.5-5.1); Protein, Total 5.6 g/dL (6.4-8.2); Sodium Level 146 mEq/L (136-145)
[2024-03-21] MEDS ORDERED: KETOROLAC 30 MG/ML INJ ONE (19:30)
--- NOTE | 2024-03-21 20:12 | RAD REPORT ---
EXAMINATION: CT ABDOMEN AND PELVIS WITH CONTRAST CLINICAL INDICATION: Male, 73 years old.ABD PAIN TECHNIQUE: CT abdomen and pelvis was performed, after the administration of IV contrast, as [facility]. Axial, sagittal and coronal reconstructions were obtained. One or more of the following dose reduction techniques were used: Automated exposure control, adjustment of the mA and/o r kV according to patient size, and/or iterative reconstruction. Unless otherwise specified, incidental findings do not require dedicated imaging follow-up. [id number]. COMPARISON: 08/05/2023 FINDINGS: LOWER CHEST: Scattered calcified pulmonary nodules. No evidence of edema and pneumonia. Coronary calc ifications. LIVER: No suspicious liver masses. GALLBLADDER/BILE DUCT: Common bile duct is mildly dilated at 8 mm which is similar. The gallbladder i s unremarkable.? PANCREAS: No significant abnormality. SPLEEN: Normal size. No focal lesion. ADRENALS: Normal; no mass. KIDNEYS AND URETERS: Normal size and contour. No hydronephrosis. GASTROINTESTINAL TRACT: Stomach is non-dilated. Small bowel has normal course and caliber. No colonic wall thickening or pericolonic inflammatory changes. Diverticulosis. No evidence of acute diverticulitis. PERITONEUM: No ascites. LYMPH NODES: No lymphadenopathy. ABDOMINAL AORTA AND OTHER VESSELS: Normal caliber aorta and IVC. Severe atherosclerosis. URINARY BLADDER: Normal contour. REPRODUCTIVE ORGANS: No pathologic process MUSCULOSKELETAL: No acute or suspicious osseous abnormality. Interbody cage at L4-L5. ADDITIONAL FINDINGS: None. IMPRESSION: No acute or significant abnormalities seen in the abdomen or pelvis.
--- NOTE | 2024-03-21 20:28 | EDPHYS ---
Physician Documentation [facility] Name: Bryan Graf Age: 73 yrs Sex: Male : 1950 Arrival Date: 03/21/2024 Time: 16:22 Bed 15 Private MD: ED Physician Weston Gomez HPI: 03/21 16:54 This 73 yrs old Male presents to ER via EMS with complaints of Nausea/Vomiting. rn 16:54 The patient presents to the emergency department with nausea, vomiting, diarrhea, rn abdominal pain. Onset: The symptoms/episode began/occurred 2 day(s) ago. Possible causes: unknown. The symptoms are aggravated by nothing. The symptoms are alleviated by nothing. Associated signs and symptoms: Pertinent positives: abdominal pain, diarrhea, nausea, vomiting, Pertinent negatives:. 16:56 The patient has not experienced similar symptoms in the past. Patient reports 2 days of rn nausea/vomiting/diarrhea/abdominal pain. Patient states ran out of his OxyContin a few days ago and began to experience the symptoms. Patient does report chills but no fever. No trauma. No blood in stool.. Historical: - Allergies: 16:33 Aspirin; me1 16:33 PENICILLINS; me1 - PMHx: 16:33 Chronic pain; COPD; CVA; Hypertension; Migraine; Pneumonia; Seizures; swelling and pain me1 to L lower leg; - PSHx: 16:33 back surgery; heart surgery; Right hip surgery; me1 - Immunization history:: Adult Immunizations up to date. - Infectious Disease History:: Denies. - Social history:: Smoking status: Patient reports the use of cigarette tobacco products, smokes one pack cigarettes per day. - Family history:: not pertinent. - Hospitalizations: : No recent hospitalization is reported. ROS: 16:56 Constitutional: Negative for fever, positive for chills Cardiovascular: Negative for rn chest pain, palpitations, and edema, Respiratory: Negative for shortness of breath, cough, wheezing, and pleuritic chest pain, Abdomen/GI: Positive for abdominal pain with nausea/vomiting/diarrhea MS/Extremity: Negative for injury and deformity, Neuro: Negative for headache, weakness, numbness, tingling, and seizure Exam: 16:56 Constitutional: Disheveled patient, no acute distress Cardiovascular: Regular rate rn and rhythm. No pulse deficits. Respiratory: No increased work of breathing, no retractions or nasal flaring. Abdomen/GI: Soft, mild left-sided abdominal tenderness and mid abdominal tenderness. No distention MS/ Extremity: Pulses equal, no cyanosis. Neuro: Awake and alert, GCS 15 Vital Signs: 16:27 BP 134 / 68; Pulse 83; Resp 21; Temp 98.3; Pulse Ox 93% on R/A; Weight 67.59 kg; Height me1 5 ft. 6 in. ; Pain 8/10; 17:00 BP 127 / 78; Pulse 67; Resp 18; Pulse Ox 97% on R/A; me1 18:00 BP 136 / 74; Pulse 74; Resp 16; Pulse Ox 94% ; me1 19:00 Pain 8/10; me1 19:05 BP 142 / 70; Pulse 77; Resp 19; Pulse Ox 98% on R/A; Pain 10/10; rg5 20:20 BP 135 / 70; Pulse 73; Resp 17; Temp 98; Pulse Ox 97% on R/A; Pain 2/10; rg5 16:27 Body Mass Index 24.05 (67.59 kg, 167.64 cm) me1 16:27 Pain Scale: Adult me1 19:00 Pain Scale: Adult me1 19:05 Pain Scale: Adult rg5 20:20 Pain Scale: Adult rg5 MDM: 16:25 Medical Screening Exam initiated rn 19:11 Data reviewed: vital signs, nurses notes. ED course: Patient signed out to me by ec2 previous physician, in brief arrives today for evaluation of abdominal pain. Plan is to follow-up lab work and CT imaging and reassess.. 03/21 16:28 Order name: CBC with Diff rn 03/21 16:28 Order name: CMP; Complete Time: 19:47 rn 03/21 16:28 Order name: Lipase; Complete Time: 19:47 rn 03/21 16:28 Order name: CT Abd/Pelvis - IV Contrast Only; Complete Time: 20:15 rn 03/21 16:28 Order name: IV Saline Lock; Complete Time: 17:28 rn 03/21 16:28 Order name: Labs collected and sent; Complete Time: 17:28 rn 07 17:41 Order name: Misc. Order: lab redraw green top; Complete Time: 19:10 sp Administered Medications: 17:34 Drug: Ondansetron IVP 4 mg IVP once; over 2 minutes Route: IVP; Site: left forearm; me1 18:53 Follow up: Response: No adverse reaction; Nausea is decreased me1 17:34 Drug: NS 0.9% IV 1000 ml IV at 1 bolus Per protocol; to be given as a bolus over 60 me1 minutes Route: IV; Rate: 1 bolus; Site: left forearm; 18:54 Follow up: Response: No adverse reaction; IV Status: Completed infusion; IV Intake: me1 1000ml 17:35 Drug: morphine IVP or IV 4 mg IVP once over 4 mins Route: IVP; Infused Over: 4 mins; me1 Site: left forearm; 19:00 Follow up: Pain 8/10 Adult; Response: No adverse reaction; Pain is decreased me1 19:32 Drug: Ketorolac IVP 15 mg IVP once Route: IVP; Site: left forearm; rg5 20:44 Follow up: Response: No adverse reaction; Pain is decreased rg5 Disposition Summary: 03/21/24 20:28 Discharge Ordered Notes: Location: Home ec2 Condition: Stable ec2 Diagnosis - Chronic Abdominal Pain ec2 Followup: ec2 - With: Private Physician - When: - Reason: Re-evaluation by your physician Discharge Instructions: - Discharge Summary Sheet ec2 - Abdominal Pain, Adult, [id number] ec2 Forms: - Medication Reconciliation Form ec2 - Antibiotic Education ec2 - Prescription Opioid Use ec2 - Patient Portal Instructions ec2 - Leadership Thank You Letter ec2 Signatures: Dispatcher [employer] EDMS Aylin Sexton Roman, MD MD rn Eddleman, Michelle, RN RN me1 Weston Gomez MD MD ec2 Miles Radford RN RN rg5 Corrections: (The following items were deleted from the chart) 16:28 16:28 Abdomen Pelvis W Con+CT.RAD.BRZ ordered. EDMS ED
--- NOTE | 2024-03-21 20:28 | ER ---
Nurse's Notes [facility] Name: Bryan Graf Age: 73 yrs Sex: Male : 1950 Arrival Date: 03/21/2024 Time: 16:22 Bed 15 Private MD: Diagnosis: Chronic Abdominal Pain Presentation: 03/21 16:27 Chief complaint: EMS states: toned out for n/v/d, cough, congestion and body aches. c/o me1 pain to right wrist and right arm. Coronavirus screen: Vaccine status: Patient reports receiving the 2nd dose of the covid vaccine. Ebola Screen: No symptoms or risks identified at this time. Initial Sepsis Screen: Does the patient meet any 2 criteria? No. Patient's initial sepsis screen is negative. Does the patient have a suspected source of infection?. Risk Assessment: Do you want to hurt yourself or someone else? Patient reports no desire to harm self or others. Onset of symptoms is unknown. 16:27 Method Of Arrival: EMS: [facility] [place] 16:27 Acuity: GELACIO 3 me1 Triage Assessment: 16:33 General: Appears uncomfortable, unkempt, Behavior is calm, cooperative, appropriate for me1 age, Reports. Pain: Complains of pain in right hand and right arm Pain does not radiate. Pain currently is 8 out of 10 on a pain scale. Quality of pain is described as aching, Pain began suddenly, Is continuous. EENT: No signs and/or symptoms were reported regarding the EENT system. Neuro: Level of Consciousness is awake, alert, obeys commands, Oriented to person, place, time, situation, Appropriate for age. Cardiovascular: Patient's skin is warm and dry. Respiratory: Airway is patent Respiratory effort is even, unlabored, Respiratory pattern is regular, symmetrical. GI: Reports diarrhea, nausea, vomiting. : No signs and/or symptoms were reported regarding the genitourinary system. Derm: Skin is fragile, Skin is normal. Musculoskeletal: No signs and/or symptoms reported regarding the musculoskeletal system. Historical: - Allergies: 16:33 Aspirin; me1 16:33 PENICILLINS; me1 - PMHx: 16:33 Chronic pain; COPD; CVA; Hypertension; Migraine; Pneumonia; Seizures; swelling and pain me1 to L lower leg; - PSHx: 16:33 back surgery; heart surgery; Right hip surgery; me1 - Immunization history:: Adult Immunizations up to date. - Infectious Disease History:: Denies. - Social history:: Smoking status: Patient reports the use of cigarette tobacco products, smokes one pack cigarettes per day. - Family history:: not pertinent. - Hospitalizations: : No recent hospitalization is reported. Screenin:[address] [facility] ED Fall Risk Assessment (Adult) History of falling in the last 3 months, me1 including since admission Yes- fall prone (multiple falls) (3 pts) Confusion or Disorientation No (0 pts) Intoxicated or Sedated No (0 pts) Impaired Gait Yes (1 pt) Mobility Assist Device Used Yes (1 pt) Altered Elimination No (0 pt) Score/Fall Risk Level 3 or more points = High Risk Maintained a safe environment, Hourly rounding (assess needs \T\ fall precautionary measures) done, Used ambulatory aids as needed (educated on \T\ assisted with). Abuse screen: Denies threats or abuse. Nutritional screening: No deficits noted. Tuberculosis screening: No symptoms or risk factors identified. Assessment: 16:36 General: See triage assessment.. GI: Abdomen is flat, non-distended, Reports diarrhea, me1 nausea, vomiting. 19:05 General: Appears uncomfortable, Behavior is cooperative, appropriate for age. Pain: rg5 Complains of pain in base of the skull Pain radiates to right arm Pain currently is 10 out of 10 on a pain scale. Quality of pain is described as aching. 19:05 Neuro: Level of Consciousness is awake, alert, Oriented to person, place, time. rg5 Cardiovascular: Patient's skin is warm and dry. Rhythm is sinus rhythm. Respiratory: Airway is patent Trachea midline. GI: Abdomen is non-distended. : No signs and/or symptoms were reported regarding the genitourinary system. EENT: No deficits noted. Derm: Skin is fragile, Skin is dry, Skin is normal. Musculoskeletal: Range of motion: intact in all extremities. 20:42 Reassessment: Patient and/or family updated on plan of care and expected duration. Pain rg5 level reassessed. Patient is alert, oriented x 3, equal unlabored respirations, skin warm/dry/pink. Patient states feeling better. Patient states symptoms have improved. Vital Signs: 16:27 BP 134 / 68; Pulse 83; Resp 21; Temp 98.3; Pulse Ox 93% on R/A; Weight 67.59 kg; Height me1 5 ft. 6 in. ; Pain 8/10; 17:00 BP 127 / 78; Pulse 67; Resp 18; Pulse Ox 97% on R/A; me1 18:00 BP 136 / 74; Pulse 74; Resp 16; Pulse Ox 94% ; me1 19:00 Pain 8/10; me1 19:05 BP 142 / 70; Pulse 77; Resp 19; Pulse Ox 98% on R/A; Pain 10/10; rg5 20:20 BP 135 / 70; Pulse 73; Resp 17; Temp 98; Pulse Ox 97% on R/A; Pain 2/10; rg5 16:27 Body Mass Index 24.05 (67.59 kg, 167.64 cm) me1 16:27 Pain Scale: Adult me1 19:00 Pain Scale: Adult me1 19:05 Pain Scale: Adult rg5 20:20 Pain Scale: Adult rg5 ED Course: 16:24 Patient arrived in ED. me1 16:25 Roe Yang MD is Attending Physician. rn 16:33 Triage completed. me1 16:33 Arm band placed on Patient placed in an exam room. me1 16:36 Patient has correct armband on for positive identification. Bed in low position. Call hi1 light in reach. Side rails up X2. Provided Education on: POC. Verbalized understanding.. Client placed on continuous cardiac and pulse oximetry monitoring. NIBP monitoring applied. Pulse ox on. NIBP on. 16:36 No provider procedures requiring assistance completed. me1 16:48 Paris White, RN is Primary Nurse. me1 17:28 CBC with Diff Sent. em1 17:28 CMP Sent. em1 17:28 Lipase Sent. em1 17:28 Initial lab(s) drawn, by hi, sent to lab. Inserted saline lock: 22 gauge in left em1 forearm, using aseptic technique. Blood collected. Flushed with 10 mL NS. 18:09 Radiology exam delayed due to lab results not completed at this time. ls3 18:44 Radiology exam delayed due to lab results not completed at this time. mw3 19:10 CMP Sent. vk 19:10 Lipase Sent. vk 19:11 Attending Physician role handed off by Roe Yang MD ec2 19:11 Weston Gomez MD is Attending Physician. ec2 20:03 CT Abd/Pelvis - IV Contrast Only In Process Unspecified. EDMS 20:42 IV discontinued, bleeding controlled, No redness/swelling at site. Pressure dressing rg5 applied. Administered Medications: 17:34 Drug: Ondansetron IVP 4 mg IVP once; over 2 minutes Route: IVP; Site: left forearm; me1 18:53 Follow up: Response: No adverse reaction; Nausea is decreased me1 17:34 Drug: NS 0.9% IV 1000 ml IV at 1 bolus Per protocol; to be given as a bolus over 60 me1 minutes Route: IV; Rate: 1 bolus; Site: left forearm; 18:54 Follow up: Response: No adverse reaction; IV Status: Completed infusion; IV Intake: me1 1000ml 17:35 Drug: morphine IVP or IV 4 mg IVP once over 4 mins Route: IVP; Infused Over: 4 mins; me1 Site: left forearm; 19:00 Follow up: Pain 8/10 Adult; Response: No adverse reaction; Pain is decreased me1 19:32 Drug: Ketorolac IVP 15 mg IVP once Route: IVP; Site: left forearm; rg5 20:44 Follow up: Response: No adverse reaction; Pain is decreased rg5 Medication: 16:36 VIS not applicable for this client. me1 Intake: 18:54 IV: 1000ml; Total: 1000ml. me1 Outcome: 20:28 Discharge ordered by . ec2 20:43 Discharged to home via wheelchair, rg5 20:43 Condition: stable 20:43 Discharge instructions given to patient, 20:44 Patient left the ED. rg5 Signatures: Dispatcher [employer] EDMS Reo Yang MD MD rn Martinez, Eric em1 Paris Cordova mw3 Donna Rivera 3 Paris White, RN RN hi1 Weston Gomez MD MD ec2 Maggy Tabares Rommel, RN RN rg5 Corrections: (The following items were deleted from the chart) 18:36 17:00 BP 136 / 74; Pulse 74bpm; Resp 16bpm; Pulse Ox 94%; me1 me1
[2024-03-21 21:22] LABS: Anisocytosis 1+; Blood Morphology Comment NOTED (NOT SEEN); Platelet Estimate ADEQ; White Blood Cell Scan OK (OK)
[2024-03-22 00:35] VITALS: BP 135/70; TEMP 98; O2SAT 97
== END 2024-03-21 20:44 | disposition home or self-care (01) ==
LOC: ER 16:22
DX: R10.32 Left lower quadrant pain (principal); R11.2 Nausea with vomiting, unspecified; R19.7 Diarrhea, unspecified; G89.29 Other chronic pain; F17.210 Nicotine dependence, cigarettes, uncomplicated
CPT/HCPCS: 96361; 85025; 36415; 83690; 80053; 74177; 96375; 96374; 99284; Q9967; J2405; J7030

== ENCOUNTER 2024-03-22 02:38 | Emergency (ER) | payer OTHER ==
[2024-03-22] MEDS ORDERED: DIAZEPAM 5 MG TABLET ONE (02:56)
[2024-03-22] MEDS ORDERED: KETOROLAC 30 MG/ML INJ ONE (02:56)
[2024-03-22] MEDS ORDERED: ACETAMINOPHEN 500 MG TAB ONE (02:56)
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
--- NOTE | 2024-03-22 05:16 | EDPHYS ---
Physician Documentation [facility] Name: Bryan Graf Age: 73 yrs Sex: Male : 1950 Arrival Date: 03/22/2024 Time: 02:38 Bed 6 Private MD: ED Physician Weston Gomez HPI: 03/22 02:52 This 73 yrs old Male presents to ER via EMS with complaints of headache. ec2 02:52 Patient arrives today for evaluation of of headache. Also complaining of abdominal ec2 pain. Was seen here several hours ago had lab work and a CT abdomen pelvis. Patient with chronic pain and has been out of his OxyContin, states that he does not know when he can see his primary care doctor.. Historical: - Allergies: 02:44 Aspirin; bm8 02:44 PENICILLINS; bm8 - Home Meds: 02:44 divalproex 250 mg Oral tablet [Active]; gabapentin oral [Active]; Hydrochlorothiazide bm8 Oral [Active]; Keppra 1 Oral tablet 1 tab 2 times per day [Active]; levetiracetam oral [Active]; pantoprazole oral [Active]; sucralfate 1 gram Oral tablet [Active]; - PMHx: 02:44 Chronic pain; COPD; CVA; Hypertension; Migraine; Pneumonia; Seizures; swelling and pain bm8 to L lower leg; - PSHx: 02:44 heart surgery; back surgery; Right hip surgery; bm8 - Immunization history:: Adult Immunizations unknown. - Infectious Disease History:: Denies. - Social history:: Smoking status: Patient reports the use of cigarette tobacco products. ROS: 02:52 Constitutional: as per hpi ec2 Exam: 02:52 Constitutional: GEN: NAD Head: atraumatic Eyes: EOMI Ears: External ears are ec2 normal. CV: regular rate LUNGS: no respiratory distress ABD: non-distended SKIN: no evidence of rashes MSK: no evidence of trauma. Neuro: Nonfocal neurologic examination. Vital Signs: 02:42 BP 153 / 74; Pulse 61; Resp 20; Temp 97.3; Pulse Ox 97% ; Weight 74.84 kg; Height 5 ft. bm8 7 in. ; Pain 10/10; 04:11 BP 142 / 81; Pulse 60; Resp 18; Temp 97.3; Pulse Ox 97% ; Pain 10/10; bm8 02:42 Body Mass Index 25.84 (74.84 kg, 170.18 cm) bm8 02:42 Pain Scale: Adult bm8 04:11 Pain Scale: Adult bm8 NIH Stroke Scale Scores: 02:47 NIHSS Score: 0 bm8 [place] Coma Score: 02:47 Eye Response: spontaneous(4). Motor Response: obeys commands(6). Verbal Response: bm8 oriented(5). Total: 15. 04:11 Eye Response: spontaneous(4). Motor Response: obeys commands(6). Verbal Response: bm8 oriented(5). Total: 15. 05:17 Eye Response: spontaneous(4). Motor Response: obeys commands(6). Verbal Response: bm8 oriented(5). Total: 15. MDM: 02:44 Medical Screening Exam initiated ec2 02:52 Data reviewed: vital signs, nurses notes. ED course: Patient arrives today for ec2 evaluation of a headache and abdominal pain. Examination is revealing for neuro intact individuals otherwise in no acute distress with reassuring hemodynamics. External lab work is reassuring, CT abdomen pelvis performed several hours ago was negative. Will obtain CT scan of the head and treat his symptoms.. 05:40 ED course: Patient discharged home, patient upset that we are not aggressively treating ec2 his chronic pains. CT scan of the head is negative. Patient appropriate for discharge. Instructed follow-up primary care for his chronic pain medications.. 03/22 02:52 Order name: CT Head Brain wo Cont ec2 Administered Medications: 03:15 Drug: Ketorolac IM 30 mg IM once Route: IM; Site: right deltoid; bm8 05:21 Follow up: Response: No adverse reaction bm8 03:15 Drug: Acetaminophen PO 1000 mg PO once Route: PO; bm8 05:21 Follow up: Response: No adverse reaction bm8 03:15 Drug: Diazepam PO 5 mg PO once Route: PO; bm8 05:21 Follow up: Response: No adverse reaction bm8 Disposition Summary: 03/22/24 05:16 Discharge Ordered Notes: Location: Home ec2 Condition: Stable ec2 Diagnosis - Headache ec2 Followup: ec2 - With: Private Physician - When: - Reason: Re-evaluation by your physician Discharge Instructions: - Discharge Summary Sheet ec2 - General Headache Without Cause ec2 Forms: - Medication Reconciliation Form ec2 - Antibiotic Education ec2 - Prescription Opioid Use ec2 - Patient Portal Instructions ec2 - Leadership Thank You Letter ec2 NIH Stroke Scale - NIH Stroke Score Date: 03/22/2024 Time: 02:47 Total Score = 0 10. Dysarthria (speech clarity - read or repeat words) - 0(Normal) 11. Extinction and Inattention (visual/tactile/auditory/spatial/personal) - 0(No abnormality) 1a. Level of Consciousness (LOC) - 0(Alert) 1b. Level of Consciousness (LOC) (Month \T\ Age) - 0(Both) 1c. LOC Commands (Open \T\ Closes Eyes/Primary Substance Abuse Counselor) - 0(Both) 2. Best Gaze (Lateral Gaze Paresis) - 0(Normal) 3. Visual Field Loss - 0(No visual loss) 4. Facial Palsy - 0(Normal) 5a. Left Arm: Motor (10-second hold) - 0(No drift) 5b. Right Arm: Motor (10-second hold) - 0(No drift) 6a. Left Leg: Motor (5-second hold - always test supine) - 0(No drift) 6b. Right Leg: Motor (5-second hold - always test supine) - 0(No drift) 7. Limb Ataxia (finger/nose \T\ heel/arce - test with eyes open) - 0(Absent) 8. Sensory Loss (pinprick arms/legs/face) - 0(Normal) 9. Best Language: Aphasia (description/naming/reading) - 0(No aphasia) Initials: bm8 Signatures: Dispatcher [employer] Weston Stephens MD MD 2 Lito Woo RN RN bm8
--- NOTE | 2024-03-22 05:26 | RAD REPORT ---
CT HEAD WITHOUT IV CONTRAST INDICATION: Headache. COMPARISON: CT head 12/16/2023 TECHNIQUE: CT images of the head were obtained without contrast. Multiplanar reformats were provided. Dose lowering techniques such as automated exposure control, iterative reconstruction, and mA and/or kV adjustment for patient size was utilized for this examination. FINDINGS: PARENCHYMA: No acute arterial territory infarct. No acute intracranial hemorrhage. No mass effect or midline shift. VENTRICLES: Normal in size for patient's age. EXTRA-AXIAL: No focal collection. Patent basilar cisterns. ORBITS: Unremarkable. BONES: No acute finding. PARANASAL SINUSES/MASTOIDS/MIDDLE EARS: Clear. SOFT TISSUES: No acute findings. OTHER: None. IMPRESSION: No acute intracranial abnormality. Electronically signed by: Rosario Osuna MD 03/22/2024 05:23 AM [facility] Due to temporary technical issues with the PACS/AUPEO! reporting system, reports are being cari d by the in-house radiologist without review as a courtesy to ensure prompt reporting the interpreting radiologist is fully responsible for the content of the report. Transcribed Date/Time: 03/22/2024 5:25 AM
[2024-03-22 09:52] VITALS: TEMP 97.3; O2SAT 97
[2024-03-22 09:53] VITALS: BP 142/81
== END 2024-03-22 05:21 | disposition home or self-care (01) ==
LOC: ER 02:38
DX: R51.9 Headache, unspecified (principal); I10 Essential (primary) hypertension; G89.29 Other chronic pain
CPT/HCPCS: 70450; 96372; 99285

== ENCOUNTER 2024-05-30 08:56 | Emergency (ER) | payer OTHER ==
--- NOTE | 2024-05-30 09:31 | RAD REPORT ---
EXAMINATION: ONE VIEW CHEST XR CLINICAL INDICATION: CHEST PAIN TECHNIQUE: Frontal chest projection is submitted. Examination is limited by patient positioning and t echnique. 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 Calcified granuloma are present b ilaterally. The heart is mildly prominent changes of a prior CABG. No displaced fractures identified. IMPRESSION: No acute intrathoracic abnormalities.
[2024-05-30 09:33] LABS: Absolute Basophils 0.1 K/uL (0-0.5); Absolute Eosinophils 0.1 K/uL (0-0.5); Absolute Monocytes 1.1 K/uL (0.1-1.3); Absolute Neutrophil 3.1 K/uL (1.8-8.0); Basophils % 0.9 % (0-1.3); Eosinophils % 1.9 % (0-4.4); Hematocrit 39.5 % (39.6-49.0); Hemoglobin 13.2 g/dL (13.6-17.9); Lymphocytes % 31.1 % (15.3-44.8); MCH 32.6 pg (27.0-35.0); MCHC 33.6 g/dL (32.0-36.0); MCV 97.1 fL (80-100); MPV 9.1 fL (7.6-11.3); Monocytes % 17.5 % (3.3-12.3); Neutrophils % 48.6 % (41.7-73.7); Nucleated Red Blood Cells % 0.2 % (0-0); Platelets 214 thou/uL (152-406); RBC Red Blood Cell Count 4.07 M/uL (4.33-5.43); Red Cell Distribution Width 17.8 % (12.1-15.2)
[2024-05-30 09:49] LABS: Anion Gap 7.4 mEq/L (5.0-15.0); Potassium 4.4 mEq/L (3.5-5.1); Troponin High Sensitivity 14.9 pg/mL (<58.9)
[2024-05-30] MEDS ORDERED: ONDANSETRON 4 MG/2 ML VIAL ONE (10:01)
[2024-05-30] MEDS ORDERED: MORPHINE 2 MG/ML SYR ONE (10:02)
--- NOTE | 2024-05-30 10:04 | EDPHYS ---
Physician Documentation [facility] Name: Bryan Graf Age: 73 yrs Sex: Male : 1950 Arrival Date: 05/30/2024 Time: 08:56 Bed 3 Private MD: ED Physician Weston Gomez HPI: 05/30 09:26 This 73 yrs old Male presents to ER via EMS with complaints of Chest Pain. kb 09:26 Pt is a 73 year old male who presents for chest pain to surgical scar that started a kb few days ago. States it feels like the wires they put in are trying to come out. Reports lumps down surgical scar that have been there for years but they have never hurt like this. . Historical: - Allergies: 09:23 Aspirin; ko1 09:23 PENICILLINS; ko1 - PMHx: 09:23 Chronic pain; COPD; Hypertension; CVA; Pneumonia; Migraine; Seizures; swelling and pain ko1 to L lower leg; - PSHx: 09:23 back surgery; heart surgery; Right hip surgery; ko1 - Immunization history:: Adult Immunizations unknown. - Infectious Disease History:: Denies. - Social history:: Smoking status: Patient reports the use of cigarette tobacco products, smokes two packs cigarettes per day. ROS: 09:11 Constitutional: As per HPI kb Exam: 09:11 Constitutional: This is a well developed, well nourished patient who is awake, alert, kb and in no acute distress. Head/Face: Normocephalic, atraumatic. ENT: Moist Mucous membranes Cardiovascular: Regular rate Respiratory: Respirations even and unlabored. No increased work of breathing. Talking in full sentences Skin: Warm, dry with normal turgor. Normal color. MS/ Extremity: Pulses equal, no cyanosis. Neurovascular intact. Full, normal range of motion. Neuro: Awake and alert, GCS 15, oriented to person, place, time, and situation. 09:11 Chest/axilla: Inspection: midline surgical scar with tenderness to small masses under skin., Palpation: tenderness, that is moderate, of the mid-sternal area, 09:14 ECG was reviewed by the Attending Physician. kb Vital Signs: 09:00 BP 139 / 72; Pulse 66; Resp 18; Temp 97; Pulse Ox 95% on R/A; ko1 10:05 BP 127 / 67; Pulse 61; Resp 15; Pulse Ox 97% ; ko1 10:14 BP 131 / 75; Pulse 62; Resp 17; Pulse Ox 100% ; ko1 MDM: 08:57 Medical Screening Exam initiated kb 09:13 Data reviewed: vital signs, nurses notes. kb 10:02 Differential diagnosis: skin infection, acute mi, arrhythmia, COPD exacerbation. kb Management of patient was discussed with the following: Dr Hermosillo, recommends follow up outpatient. Historians other than the Patient: EMS: [facility]. Counseling: I had a detailed discussion with the patient and/or guardian regarding the historical points, exam findings, and any diagnostic results supporting the discharge/admit diagnosis, lab results, radiology results, the need for outpatient follow up, a family practitioner, to return to the emergency department if symptoms worsen or persist or if there are any questions or concerns that arise at home. 05/30 09:00 Order name: Basic Metabolic Panel; Complete Time: 09:54 bp 05/30 09:00 Order name: CBC with Diff; Complete Time: 09:42 bp 05/30 09:00 Order name: Troponin HS; Complete Time: 09:54 bp 05/30 09:00 Order name: XRAY Chest (1 view); Complete Time: 09:35 bp 05/30 09:00 Order name: Cardiac monitoring; Complete Time: 09:01 bp 05/30 09:00 Order name: EKG - Nurse/Tech; Complete Time: 09:12 bp 05/30 09:00 Order name: IV Saline Lock; Complete Time: 09:21 bp 05/30 09:00 Order name: Labs collected and sent; Complete Time: 09:21 bp 05/30 09:00 Order name: O2 Per Protocol; Complete Time: 09:01 bp 05/30 09:00 Order name: O2 Sat Monitoring; Complete Time: 09:01 bp EC:14 Rate is 65 beats/min. Rhythm is regular. QRS [place] is Normal. ID interval is prolonged kb at 286 msec. QRS interval is normal at 104 msec. QT interval is normal at 416 msec. Administered Medications: 10:03 Drug: morphine IVP or IV 2 mg IVP once over 4 mins Route: IVP; Infused Over: 4 mins; ko1 Site: right forearm; 10:18 Follow up: Response: No adverse reaction ko1 10:03 Drug: Ondansetron IVP 4 mg IVP once; over 2 minutes Route: IVP; Site: right forearm; ko1 10:18 Follow up: Response: No adverse reaction ko1 Disposition Summary: 05/30/24 10:04 Discharge Ordered Notes: Location: Home kb Condition: Stable kb Diagnosis - Chest pain, unspecified - chest wall/surface kb Followup: kb - With: Emergency Department - When: As needed - Reason: Worsening of condition Followup: kb - With: Private Physician - When: 2 - 3 days - Reason: Recheck today's complaints, Continuance of care, Re-evaluation by your physician Discharge Instructions: - Discharge Summary Sheet kb - Chest Wall Pain, [id number] kb Forms: - Medication Reconciliation Form kb - Antibiotic Education kb - Prescription Opioid Use kb - Patient Portal Instructions kb - Leadership Thank You Letter kb Signatures: Dispatcher [employer] EDMS Cherelle Amado, CHECO-C CHECO-Abhishek Ugarte, RN RN bp Era Coronado, JOSEPH RN ko1 Corrections: (The following items were deleted from the chart) 09:01 09:01 Chest Single View+[email or web address] ordered. EDMS EDMS
--- NOTE | 2024-05-30 10:04 | ER ---
Nurse's Notes [facility] Name: Bryan Graf Age: 73 yrs Sex: Male : 1950 Arrival Date: 05/30/2024 Time: 08:56 Bed 3 Private MD: Diagnosis: Chest pain, unspecified-chest wall/surface Presentation: 05/30 09:00 Chief complaint: EMS states: patient having surface area chest pain, complains that he ko1 feels like his wires from his bypass are coming through his chest. Coronavirus screen: At this time, the client does not indicate any symptoms associated with coronavirus-19. Ebola Screen: No symptoms or risks identified at this time. Initial Sepsis Screen: Does the patient meet any 2 criteria? No. Patient's initial sepsis screen is negative. Does the patient have a suspected source of infection? No. Patient's initial sepsis screen is negative. Risk Assessment: Do you want to hurt yourself or someone else? Patient reports no desire to harm self or others. Onset of symptoms is unknown. 09:00 Method Of Arrival: EMS: [facility] ko1 09:00 Acuity: GELACIO 3 ko1 Triage Assessment: 09:23 General: Appears in no apparent distress. uncomfortable, Behavior is calm, cooperative, ko1 appropriate for age. Pain: Complains of pain in mid-sternal area. EENT: No deficits noted. No signs and/or symptoms were reported regarding the EENT system. Neuro: No deficits noted. Cardiovascular: Reports feels like wires coming through chest. Respiratory: No deficits noted. GI: No deficits noted. No signs and/or symptoms were reported involving the gastrointestinal system. : No deficits noted. No signs and/or symptoms were reported regarding the genitourinary system. Derm: small raised area mid sternally. Musculoskeletal: No deficits noted. No signs and/or symptoms reported regarding the musculoskeletal system. Historical: - Allergies: 09:23 Aspirin; ko1 09:23 PENICILLINS; ko1 - PMHx: 09:23 Chronic pain; COPD; Hypertension; CVA; Pneumonia; Migraine; Seizures; swelling and pain ko1 to L lower leg; - PSHx: 09:23 back surgery; heart surgery; Right hip surgery; ko1 - Immunization history:: Adult Immunizations unknown. - Infectious Disease History:: Denies. - Social history:: Smoking status: Patient reports the use of cigarette tobacco products, smokes two packs cigarettes per day. Screenin:21 [facility] ED Fall Risk Assessment (Adult) History of falling in the last 3 months, ko1 including since admission No falls in past 3 months (0 pts) Confusion or Disorientation No (0 pts) Intoxicated or Sedated No (0 pts) Impaired Gait Yes (1 pt) Mobility Assist Device Used Yes (1 pt) Altered Elimination No (0 pt) Score/Fall Risk Level 0 - 2 = Low Risk Oriented to surroundings, Maintained a safe environment, Educated pt \T\ family on fall prevention, incl call for assistance when getting out of bed, Assessed \T\ reinforced patient's understanding of fall precautions, Hourly rounding (assess needs \T\ fall precautionary measures) done. Abuse screen: Denies threats or abuse. Denies injuries from another. Nutritional screening: No deficits noted. Tuberculosis screening: No symptoms or risk factors identified. Assessment: 09:27 Pain: Pain does not radiate. Pain began 2-3 days ago. Cardiovascular: Patient's skin is ko1 warm and dry. Vital Signs: 09:00 BP 139 / 72; Pulse 66; Resp 18; Temp 97; Pulse Ox 95% on R/A; ko1 10:05 BP 127 / 67; Pulse 61; Resp 15; Pulse Ox 97% ; ko1 10:14 BP 131 / 75; Pulse 62; Resp 17; Pulse Ox 100% ; ko1 ED Course: 08:56 Patient arrived in ED. jj6 08:57 Cherelle Amado [facility]C [facility] kb 08:57 Weston Gomez MD is Attending Physician. kb 08:57 Era Coronado, JOSEPH is Primary Nurse. ko1 09:09 XRAY Chest (1 view) In Process Unspecified. EDMS 09:12 Patient has correct armband on for positive identification. Bed in low position. Call ko1 light in reach. Side rails up X2. Provided Education on: labs. Client placed on continuous cardiac and pulse oximetry monitoring. NIBP monitoring applied. chinchilla farmer on. Door closed. Noise minimized. Lights dimmed. Warm blanket given. Pillow given. 09:12 EKG done, by ED staff, reviewed by Cherelle ANG. ko1 09:21 Basic Metabolic Panel Sent. ko1 09: CBC with Diff Sent. ko1 09: Troponin HS Sent. ko1 09:21 No provider procedures requiring assistance completed. Initial lab(s) drawn, by me, ko1 sent to lab. Inserted saline lock: 20 gauge in right forearm, using aseptic technique. Inserted saline lock: Blood collected. Flushed with 10 mL NS. Patient maintains SpO2 saturation greater than 95% on room air. 09:23 Triage completed. ko1 :23 Arm band placed on right wrist. Patient placed in an exam room, on a stretcher, on ko1 snow blower, on pulse oximetry, Patient notified of wait time. 10:14 IV discontinued, intact, bleeding controlled, No redness/swelling at site. Pressure ko1 dressing applied. Administered Medications: 10:03 Drug: morphine IVP or IV 2 mg IVP once over 4 mins Route: IVP; Infused Over: 4 mins; ko1 Site: right forearm; 10:18 Follow up: Response: No adverse reaction ko1 10:03 Drug: Ondansetron IVP 4 mg IVP once; over 2 minutes Route: IVP; Site: right forearm; ko1 10:18 Follow up: Response: No adverse reaction ko1 Medication: : VIS not applicable for this client. ko1 Outcome: 10:04 Discharge ordered by MD. mistry 10:25 Discharged to home via wheelchair, with family, ko1 10:25 Condition: stable 10:25 Discharge instructions given to patient, Instructed on discharge instructions, follow up and referral plans. Demonstrated understanding of instructions, follow-up care, 10:25 Patient left the ED. ko1 Signatures: Dispatcher [employer] EDDC Cherelle Amado, TRUCK DRIVER-Alejandro TRUCK DRIVER-Xiomy Baxter jj6 Era Coronado, RN RN ko1
[2024-05-30 10:54] VITALS: TEMP 97
[2024-05-30 11:04] VITALS: BP 131/75; O2SAT 100
== END 2024-05-30 10:25 | disposition home or self-care (01) ==
LOC: ER 08:56
DX: R07.89 Other chest pain (principal); Z95.1 Presence of aortocoronary bypass graft; J44.9 Chronic obstructive pulmonary disease, unspecified; I10 Essential (primary) hypertension; F17.210 Nicotine dependence, cigarettes, uncomplicated
CPT/HCPCS: 85025; 80048; 36415; 84484; 71045; 96375; 96374; 99285; J2270; J2405; 93005

== ENCOUNTER 2024-06-01 10:43 | Emergency (ER) | payer OTHER ==
[2024-06-01] MEDS ORDERED: ONDANSETRON 4 MG/2 ML VIAL ONE (11:01)
[2024-06-01] MEDS ORDERED: IPRATROPIUM BROM 0.5MG/2.5ML ONE (11:01)
[2024-06-01] MEDS ORDERED: ALBUTEROL 2.5 MG/3 ML NEB SOL ONE (11:01)
[2024-06-01] MEDS ORDERED: predniSONE 20 MG TAB ONE (11:01)
[2024-06-01] MEDS ORDERED: MORPHINE 4 MG/ML SYR ONE (11:02)
[2024-06-01 11:33] LABS: Absolute Basophils 0.1 K/uL (0-0.5); Absolute Eosinophils 0.1 K/uL (0-0.5); Absolute Lymphocytes (CBC) 1.9 K/uL (0.7-4.9); Absolute Monocytes 0.9 K/uL (0.1-1.3); Absolute Neutrophil 3.3 K/uL (1.8-8.0); Eosinophils % 1.2 % (0-4.4); Hematocrit 39.2 % (39.6-49.0); Hemoglobin 13.6 g/dL (13.6-17.9); MCH 33.4 pg (27.0-35.0); MCHC 34.6 g/dL (32.0-36.0); MCV 96.6 fL (80-100); Monocytes % 15.1 % (3.3-12.3); Neutrophils % 52.7 % (41.7-73.7); Nucleated Red Blood Cells % 0.1 % (0-0); Platelets 180 thou/uL (152-406); RBC Red Blood Cell Count 4.06 M/uL (4.33-5.43)
[2024-06-01 11:49] LABS: AST/SGOT 14 U/L (15-37); Albumin 3.3 g/dL (3.4-5.0); Albumin/Globulin Ratio 0.8 (1.1-1.8); Alkaline Phosphatase 74 U/L (45-117); Anion Gap 9.2 mEq/L (5.0-15.0); BUN Blood Urea Nitrogen 14 mg/dL (7-18); Bicarbonate 25 mEq/L (21-32); Bilirubin Total 0.3 mg/dL (0.2-1.0); Globulin 4.2 g/dL (2.3-3.5); Glomerular Filtration Rate 94 ml/min (=/>90); Glucose Level 96 mg/dL (74-106); Potassium 4.2 mEq/L (3.5-5.1); Protein, Total 7.5 g/dL (6.4-8.2); Sodium Level 139 mEq/L (136-145); Troponin High Sensitivity 17.6 pg/mL (<58.9)
[2024-06-01 11:50] LABS: ALT/SGPT < 14 U/L (16-61); Bilirubin Direct < 0.2 mg/dL (0-0.2); Bilirubin Indirect, Calculated 0.1 mg/dL (0.2-0.8)
[2024-06-01] MEDS ORDERED: MORPHINE 2 MG/ML SYR ONE (12:23)
--- NOTE | 2024-06-01 12:29 | RAD REPORT ---
EXAMINATION: ONE VIEW CHEST XR CLINICAL INDICATION: Male, 73 years old.,CHEST PAIN TECHNIQUE: Frontal chest projection is submitted. Examination is limited by patient positioning and t echnique. COMPARISON: 05/30/2024 FINDINGS: The lungs are grossly clear except for persistent mild bibasilar reticular opacities, although subopt imal inspiratory effort somewhat limits evaluation. No pneumothorax or sizable effusion. The heart is normal in size. Mediastinal contours are unremarkable. IMPRESSION: No acute intrathoracic abnormalities.
--- NOTE | 2024-06-01 12:40 | EDPHYS ---
Physician Documentation [facility] Name: Bryan Graf Age: 73 yrs Sex: Male : 1950 Arrival Date: 06/01/2024 Time: 10:43 Bed 5 Private MD: ED Physician Tyler Mtz HPI: 06/01 10:56 This 73 yrs old Male presents to ER via EMS with complaints of Shortness Of Breath. rt 10:56 Patient presents to the ED with a pain overlying his sternotomy wires. Patient was seen rt in the ED for similar symptoms 2 days ago. The patient reports that the wires are prominent under the skin now, states that he has been losing weight. Also reports a cough, wheezing, shortness of breath is chronic for him. Denies other acute complaints at this time, symptoms are moderate in severity, no other aggravating or alleviating factors.. Historical: - Allergies: 10:45 Aspirin; bp 10:45 PENICILLINS; bp - PMHx: 10:45 Chronic pain; COPD; CVA; Hypertension; Migraine; Pneumonia; Seizures; swelling and pain bp to L lower leg; - PSHx: 10:45 Right hip surgery; heart surgery; back surgery; bp - Immunization history:: Adult Immunizations up to date. - Infectious Disease History:: Denies. - Social history:: Smoking status: Patient reports the use of cigarette tobacco products, unknown amount. - Family history:: not pertinent. ROS: 10:56 Constitutional: Negative for fever, chills, and weight loss, Abdomen/GI: Negative for rt abdominal pain, nausea, vomiting, diarrhea, and constipation, MS/Extremity: Negative for injury and deformity, Skin: Negative for injury, rash, and discoloration, Neuro: Negative for headache, weakness, numbness, tingling, and seizure, 10:56 Cardiovascular: Positive for chest pain, Negative for edema, 10:56 Respiratory: Positive for shortness of breath, wheezing, Exam: 10:56 Constitutional: This is a well developed, well nourished patient who is awake, alert, rt and in no acute distress. Cardiovascular: Regular rate and rhythm with a normal S1 and S2. No gallops, murmurs, or rubs. Normal PMI, no JVD. No pulse deficits. Abdomen/GI: Soft, non-tender, with normal bowel sounds. No distension or tympany. No guarding or rebound. No evidence of tenderness throughout. Skin: Warm, dry with normal turgor. Normal color with no rashes, no lesions, and no evidence of cellulitis. MS/ Extremity: Pulses equal, no cyanosis. Neurovascular intact. Full, normal range of motion. Neuro: Awake and alert, GCS 15, oriented to person, place, time, and situation. Cranial nerves II-XII grossly intact. Motor strength 5/5 in all extremities. Sensory grossly intact. Cerebellar exam normal. Normal gait. 10:56 Chest/axilla: Prominent palpable sternotomy wires with tenderness underneath the skin, no erythema, skin breakdown. 10:56 Respiratory: Wheezes heard on all lung norris, no respiratory distress, 11:02 ECG was reviewed by the Attending Physician. rt Vital Signs: 10:44 BP 149 / 72; Pulse 57; Resp 16; Temp 97.3; Pulse Ox 100% ; bp 10:55 Weight 72.57 kg; Height 5 ft. 8 in. ; Pain 10/10; ss 12:32 BP 140 / 67; Pulse 63; Resp 18; Pulse Ox 94% on R/A; ph 10:55 Body Mass Index 24.33 (72.57 kg, 172.72 cm) ss 10:55 Pain Scale: Adult ss MDM: 10:44 Medical Screening Exam initiated rt 13:41 Differential diagnosis: COPD, chest wall pain, CAD. Data reviewed: vital signs, nurses rt notes, lab test result(s), EKG, radiologic studies. Consideration of Admission/Observation Escalation of care including admission/observation considered. Pain is clearly at the location of the sternotomy wires. Suspect that this is worsening as the patient is losing weight. Workup is benign, no acute ischemic changes found in the labs or EKG. Do not believe that he requires admission for chest pain rule out at this time. Patient was instructed to follow-up with cardiothoracic surgery to discuss possible revision.. 14:21 I considered the following discharge prescriptions or medication management in the rt emergency department Medications were administered in the Emergency Department. See MAR. Independent interpretation of the following test(s) in the Emergency Department X-Ray: My interpretation is No pneumothorax seen on interpretation of x-ray images. Test considered but Not performed: CT: Do not suspect pulmonary embolus, CT angiogram not indicated. 14:21 Counseling: I had a detailed discussion with the patient and/or guardian regarding the rt historical points, exam findings, and any diagnostic results supporting the discharge/admit diagnosis, lab results, radiology results, the need for outpatient follow up. 06/01 10:53 Order name: Basic Metabolic Panel; Complete Time: 11:50 rt 06/01 10:53 Order name: CBC with Diff; Complete Time: 11:50 rt 06/01 10:53 Order name: LFT's; Complete Time: :50 rt 06/01 10:53 Order name: Troponin HS; Complete Time: 11:50 rt 06/01 10:53 Order name: XRAY Chest (1 view); Complete Time: 12:32 rt 06/01 10:53 Order name: EKG; Complete Time: 10:54 rt 06/01 10:53 Order name: Cardiac monitoring; Complete Time: 10:55 rt 06/01 10:53 Order name: EKG - Nurse/Tech; Complete Time: 10:55 rt 06/01 10:53 Order name: IV Saline Lock; Complete Time: 11: rt 06/01 10:53 Order name: Labs collected and sent; Complete Time: 11: rt 06/01 10:53 Order name: O2 Per Protocol; Complete Time: 10:56 rt 06/01 10:53 Order name: O2 Sat Monitoring; Complete Time: 10:56 rt EC: Rate is 59 beats/min. Rhythm is regular, 1st Degree Block with No ectopy. Left axis rt deviation noted. MD interval is normal. QRS interval is normal. QT interval is normal. No Q waves. T waves are Normal. No ST changes noted. Interpreted by me. Administered Medications: 11:08 Drug: DuoNeb Nebulize (3:1) (2.5 mg - 0.5 mg) 3 ml Nebulizer once Route: Nebulizer; ph 12:32 Follow up: Response: No adverse reaction ph 11:08 Drug: predniSONE PO 40 mg PO once Route: PO; ph 12:32 Follow up: Response: No adverse reaction ph 11:27 Drug: morphine IVP or IV 4 mg IVP once over 4 mins Route: IVP; Infused Over: 4 mins; bp Site: right forearm; 12:31 Follow up: Response: No adverse reaction; RASS: Alert and Calm (0) ph 11:27 Drug: Ondansetron IVP 4 mg IVP once; over 2 minutes Route: IVP; Site: right forearm; bp 12:32 Follow up: Response: No adverse reaction ph 12:31 Drug: morphine IVP or IV 2 mg IVP once over 4 mins Route: IVP; Infused Over: 4 mins; ph Site: right forearm; 12:32 Follow up: Response: No adverse reaction ph Disposition Summary: 06/01/24 12:39 Discharge Ordered Notes: Location: Home rt Problem: an ongoing problem rt Symptoms: have improved rt Condition: Stable rt Diagnosis - Chest wall pain rt - COPD exacerbation rt Followup: rt - With: Private Physician - When: 2 - 3 days - Reason: Discharge Instructions: - Discharge Summary Sheet rt - Chest Wall Pain rt - Chronic Obstructive Pulmonary Disease rt Forms: - Medication Reconciliation Form rt - Antibiotic Education rt - Prescription Opioid Use rt - Patient Portal Instructions rt - Leadership Thank You Letter rt Prescriptions: - albuterol sulfate 2.5 mg /3 mL (0.083 %) Inhalation Solution for Nebulization - nebulize 3 milliliter INHALATION route every 4 hours as needed for shortness of rt breath or wheezing; 90 milliliter; Refills: 0, Product Selection Permitted - Prednisone 20 mg Oral tablet - take 2 tablets ORAL route once daily for 5 days; 8 tablet; Refills: 0, Product rt Selection Permitted Signatures: Dispatcher [employer] Keerthi Srivastava, JOSEPH RN Abhishek Ball RN RN bp Tyler Mtz MD MD rt
--- NOTE | 2024-06-01 12:40 | ER ---
Nurse's Notes [facility] Name: Bryan Graf Age: 73 yrs Sex: Male : 1950 Arrival Date: 06/01/2024 Time: 10:43 Bed 5 Private MD: Diagnosis: Chest wall pain;COPD exacerbation Presentation: 06/01 10:44 Chief complaint: EMS states: CHRONIC SHORTNESS OF BREATH. Coronavirus screen: At this bp time, the client does not indicate any symptoms associated with coronavirus-19. Ebola Screen: No symptoms or risks identified at this time. Initial Sepsis Screen: Does the patient meet any 2 criteria? No. Patient's initial sepsis screen is negative. Does the patient have a suspected source of infection? No. Patient's initial sepsis screen is negative. Risk Assessment: Do you want to hurt yourself or someone else? Patient reports no desire to harm self or others. Onset of symptoms is unknown. 10:44 Method Of Arrival: EMS: [facility] bp 10:44 Acuity: GELACIO 3 bp Triage Assessment: 10:45 General: Appears in no apparent distress. slender, Behavior is appropriate for age, bp anxious. Pain: Denies pain. EENT: No deficits noted. Neuro: No deficits noted. Cardiovascular: Rhythm is sinus rhythm. Respiratory: Reports shortness of breath Onset: The symptoms/episode began/occurred at an unknown time. the patient has mild shortness of breath. GI: No signs and/or symptoms were reported involving the gastrointestinal system. : No signs and/or symptoms were reported regarding the genitourinary system. Derm: No deficits noted. Musculoskeletal: No deficits noted. Historical: - Allergies: 10:45 Aspirin; bp 10:45 PENICILLINS; bp - PMHx: 10:45 Chronic pain; COPD; CVA; Hypertension; Migraine; Pneumonia; Seizures; swelling and pain bp to L lower leg; - PSHx: 10:45 Right hip surgery; heart surgery; back surgery; bp - Immunization history:: Adult Immunizations up to date. - Infectious Disease History:: Denies. - Social history:: Smoking status: Patient reports the use of cigarette tobacco products, unknown amount. - Family history:: not pertinent. Screenin:45 [facility] ED Fall Risk Assessment (Adult) History of falling in the last 3 months, bp including since admission No falls in past 3 months (0 pts) Confusion or Disorientation No (0 pts) Intoxicated or Sedated No (0 pts) Impaired Gait No (0 pts) Mobility Assist Device Used No (0 pt) Altered Elimination No (0 pt) Score/Fall Risk Level 0 - 2 = Low Risk Oriented to surroundings. Abuse screen: Denies threats or abuse. Denies injuries from another. Nutritional screening: No deficits noted. Tuberculosis screening: No symptoms or risk factors identified. Assessment: 10:45 General: Appears in no apparent distress. uncomfortable, Behavior is cooperative, bp appropriate for age, anxious. Pain: Denies pain. Neuro: No deficits noted. Cardiovascular: Rhythm is sinus rhythm. Respiratory: Airway is patent Respiratory effort is labored, Breath sounds with wheezes bilaterally. 13:00 Reassessment: Patient appears in no apparent distress at this time. Patient is alert, bp oriented x 3, equal unlabored respirations, skin warm/dry/pink. Vital Signs: 10:44 BP 149 / 72; Pulse 57; Resp 16; Temp 97.3; Pulse Ox 100% ; bp 10:55 Weight 72.57 kg; Height 5 ft. 8 in. ; Pain 10/10; ss 12:32 BP 140 / 67; Pulse 63; Resp 18; Pulse Ox 94% on R/A; ph 10:55 Body Mass Index 24.33 (72.57 kg, 172.72 cm) ss 10:55 Pain Scale: Adult ss ED Course: 10:44 Patient arrived in ED. bp 10:44 Tyler Mtz MD is Attending Physician. rt 10:45 Triage completed. bp 10:45 Arm band placed on. bp 10:45 Patient has correct armband on for positive identification. bp 10:45 No provider procedures requiring assistance completed. Initial lab(s) drawn, by me, bp sent to lab. EKG done, by ED staff, reviewed by Tyler Mtz MD. Inserted saline lock: 20 gauge in right forearm, using aseptic technique. Blood collected. Flushed with 10 mL NS. 10:55 Abhishek Blue, RN is Primary Nurse. bp 12:03 XRAY Chest (1 view) In Process Unspecified. EDMS 13:08 IV discontinued, intact, bleeding controlled, No redness/swelling at site. Pressure bp dressing applied. 13:14 Provided Education on: NA. bp Administered Medications: 11:08 Drug: DuoNeb Nebulize (3:1) (2.5 mg - 0.5 mg) 3 ml Nebulizer once Route: Nebulizer; ph 12:32 Follow up: Response: No adverse reaction ph 11:08 Drug: predniSONE PO 40 mg PO once Route: PO; ph 12:32 Follow up: Response: No adverse reaction ph 11:27 Drug: morphine IVP or IV 4 mg IVP once over 4 mins Route: IVP; Infused Over: 4 mins; bp Site: right forearm; 12:31 Follow up: Response: No adverse reaction; RASS: Alert and Calm (0) ph 11:27 Drug: Ondansetron IVP 4 mg IVP once; over 2 minutes Route: IVP; Site: right forearm; bp 12:32 Follow up: Response: No adverse reaction ph 12:31 Drug: morphine IVP or IV 2 mg IVP once over 4 mins Route: IVP; Infused Over: 4 mins; ph Site: right forearm; 12:32 Follow up: Response: No adverse reaction ph Medication: 13:14 VIS not applicable for this client. bp Outcome: 12:39 Discharge ordered by . rt 13:08 Discharged to home via wheelchair, with family, bp 13:08 Condition: stable 13:08 Discharge instructions given to patient, Instructed on discharge instructions, follow up and referral plans. medication usage, Demonstrated understanding of instructions, follow-up care, medications, Prescriptions given X 2, 13:15 Patient left the ED. bp Signatures: Dispatcher [employer] EDCheli Hercules RN RN Keerthi Crum RN RN ph Peltier, Brian, RN RN bp Tyler Mtz MD MD rt
[2024-06-01 13:37] VITALS: TEMP 97.3
[2024-06-01 13:45] VITALS: BP 140/67; O2SAT 94
== END 2024-06-01 13:15 | disposition home or self-care (01) ==
LOC: ER 10:43
DX: J44.1 Chronic obstructive pulmonary disease with (acute) exacerbation (principal); I10 Essential (primary) hypertension; F17.210 Nicotine dependence, cigarettes, uncomplicated
CPT/HCPCS: 93005; 85025; 80048; 36415; 80076; 84484; 71045; 96375; 96374; 99285; J7512; J7613; J7644; J2270; J2405

== ENCOUNTER 2024-06-23 11:08 | Emergency (ER) | payer OTHER ==
[2024-06-23 11:54] LABS: Absolute Eosinophils 0.1 K/uL (0-0.5); Absolute Lymphocytes (CBC) 1.8 K/uL (0.7-4.9); Absolute Neutrophil 3.7 K/uL (1.8-8.0); Basophils % 0.7 % (0-1.3); Hematocrit 37.7 % (39.6-49.0); Hemoglobin 12.9 g/dL (13.6-17.9); Lymphocytes % 26.8 % (15.3-44.8); MCH 32.8 pg (27.0-35.0); MCHC 34.2 g/dL (32.0-36.0); MCV 96.1 fL (80-100); MPV 8.9 fL (7.6-11.3); Monocytes % 14.5 % (3.3-12.3); Platelets 220 thou/uL (152-406); RBC Red Blood Cell Count 3.92 M/uL (4.33-5.43)
[2024-06-23 12:07] LABS: Anion Gap 6.1 mEq/L (5.0-15.0); Potassium 4.1 mEq/L (3.5-5.1); Troponin High Sensitivity 20.8 pg/mL (<58.9)
[2024-06-23] MEDS ORDERED: MORPHINE 4 MG/ML SYR ONE (12:26)
--- NOTE | 2024-06-23 12:45 | RAD REPORT ---
EXAMINATION: ONE VIEW CHEST XR CLINICAL INDICATION: Male, 73 years old.,CHEST PAIN TECHNIQUE: Frontal chest projection is submitted. Examination is limited by patient positioning and t echnique. COMPARISON: 06/01/2024 FINDINGS: The lungs are grossly clear although suboptimal inspiratory effort somewhat limits evaluation. Patien t rotation limits evaluation. No pneumothorax or sizable effusion. The heart is normal in size. 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 IMPRESSION: No acute intrathoracic abnormalities.
--- NOTE | 2024-06-23 14:04 | ER ---
Nurse's Notes [facility] Name: Bryan Graf Age: 73 yrs Sex: Male : 1950 Arrival Date: 06/23/2024 Time: 11:08 Bed 13 Private MD: Diagnosis: Chest pain, unspecified Presentation: 06/23 11:11 Chief complaint: Patient states: chest tenderness that has been ongoing for months, ss worse the past 3 days. Pt reports his sternotomy wires are painful. Coronavirus screen: Client denies travel out of the [place] in the last 14 days. Ebola Screen: Patient denies exposure to infectious person. Patient denies travel to an Ebola-affected area in the 21 days before illness onset. Initial Sepsis Screen: Does the patient meet any 2 criteria? No. Patient's initial sepsis screen is negative. Does the patient have a suspected source of infection? No. Patient's initial sepsis screen is negative. Risk Assessment: Do you want to hurt yourself or someone else? Patient reports no desire to harm self or others. Onset of symptoms is unknown. 11:11 Method Of Arrival: Ambulatory ss 11:11 Acuity: GELACIO 3 ss Historical: - Allergies: 11:13 Aspirin; ss 11:13 PENICILLINS; ss - PMHx: 11:13 Chronic pain; COPD; CVA; Hypertension; Migraine; Pneumonia; Seizures; swelling and pain ss to L lower leg; - PSHx: 11:13 back surgery; heart surgery; Right hip surgery; ss - Infectious Disease History:: Denies. - Social history:: Smoking status: Patient reports the use of cigarette tobacco products, smokes one-half pack cigarettes per day. Screenin:24 [facility] ED Fall Risk Assessment (Adult) History of falling in the last 3 months, kc6 including since admission No falls in past 3 months (0 pts) Confusion or Disorientation No (0 pts) Intoxicated or Sedated No (0 pts) Impaired Gait Yes (1 pt) Mobility Assist Device Used Yes (1 pt) Altered Elimination No (0 pt) Score/Fall Risk Level 0 - 2 = Low Risk Oriented to surroundings, Maintained a safe environment, Educated pt \T\ family on fall prevention, incl call for assistance when getting out of bed. Abuse screen: Denies threats or abuse. Denies injuries from another. Nutritional screening: No deficits noted. Tuberculosis screening: No symptoms or risk factors identified. Assessment: 11:24 General: Appears in no apparent distress. uncomfortable, unkempt, well developed, kc6 Behavior is calm, cooperative, appropriate for age. Pain: Complains of pain in chest Pain does not radiate. Pain began 2-3 days ago. Is chronic, Noted to be grimacing, guarding, moaning, restless. Neuro: Level of Consciousness is awake, alert, obeys commands, Oriented to person, place, time, situation, Appropriate for age. Cardiovascular: Reports chest pain, Heart tones S1 S2 present Capillary refill < 3 seconds Rhythm is regular. Respiratory: Airway is patent Trachea midline Respiratory effort is even, unlabored, Respiratory pattern is regular, symmetrical. Derm: No signs and/or symptoms reported regarding the dermatologic system. Skin is intact, is healthy with good turgor, Skin is pink, warm \T\ dry. 12:59 Reassessment: Patient appears in no apparent distress at this time. No changes from kc6 previously documented assessment. Patient and/or family updated on plan of care and expected duration. Pain level reassessed. Patient is alert, oriented x 3, equal unlabored respirations, skin warm/dry/pink. Patient states feeling better. Patient states symptoms have improved. 14:32 Reassessment: Patient appears in no apparent distress at this time. No changes from kc6 previously documented assessment. Patient and/or family updated on plan of care and expected duration. Pain level reassessed. Patient is alert, oriented x 3, equal unlabored respirations, skin warm/dry/pink. 15:15 Reassessment: d/c pending transport home. daughter is on her way. kc6 Vital Signs: 11:11 BP 140 / 78; Pulse 67; Resp 23; Temp 97.6(TE); Pulse Ox 96% ; Height 5 ft. 8 in. ; Pain ss 10/10; 11:51 BP 146 / 70; Pulse 65; Resp 16 S; Pulse Ox 94% on R/A; kc6 12:59 BP 161 / 77; Pulse 63; Resp 16 S; Pulse Ox 95% on R/A; kc6 14:32 BP 146 / 80; Pulse 63; Resp 16 S; Pulse Ox 96% on R/A; kc6 11:11 Pain Scale: Adult ss ED Course: 11:10 Patient arrived in ED. ss 11:13 Juan Carlos Mcfadden MD is Attending Physician. [email or web address] 11:13 Triage completed. ss 11:13 Arm band placed on right wrist. ss 11:16 Alma Maurer, RN is Primary Nurse. kc6 11:16 Patient has correct armband on for positive identification. Placed in gown. Bed in low kc6 position. Call light in reach. Side rails up X2. corporate tutor on. Pulse ox on. NIBP on. Door closed. Noise minimized. Lights dimmed. Pillow given. Verbal reassurance given. 11:16 EKG done, by ED staff, reviewed by Juan Carlos Mcfadden MD. Patient maintains SpO2 saturation kc6 greater than 95% on room air. 11:24 Initial lab(s) drawn, by me, sent to lab. Inserted saline lock: 18 gauge in left kc6 forearm, using aseptic technique. Blood collected. Flushed with 10 mL NS. 12:00 Assisted to bathroom. kc6 12:11 Chest Single View In Process Unspecified. EDMS 15:39 No provider procedures requiring assistance completed. IV discontinued, intact, kc6 bleeding controlled, No redness/swelling at site. Pressure dressing applied. Administered Medications: 12:30 Drug: morphine IVP or IV 4 mg IVP once over 4 mins Route: IVP; Infused Over: 4 mins; kc6 Site: left forearm; 12:59 Follow up: Response: No adverse reaction; Pain is decreased kc6 Medication: 15:40 VIS not applicable for this client. kc6 Outcome: 14:04 Discharge ordered by . [email or web address] 15:39 Discharged to home ambulatory, with family, kc6 15:39 Condition: improved 15:39 Discharge instructions given to patient, family, Instructed on discharge instructions, follow up and referral plans. no drinking with medication, no driving heavy equipment, medication usage, Demonstrated understanding of instructions, follow-up care, medications, Prescriptions given X 1, 15:40 Patient left the ED. kc6 Signatures: Dispatcher [employer] EDMS Cheli Brantley, JOSEPH RUIZ Alma Maurer, JOSEPH RN kc6 Juan Carlos Mcfadden MD MD [email or web address]
--- NOTE | 2024-06-23 14:04 | EDPHYS ---
Physician Documentation [facility] Name: Bryan Graf Age: 73 yrs Sex: Male : 1950 Arrival Date: 06/23/2024 Time: 11:08 Bed 13 Private MD: LIBERTAD Physician Juan Carlos Mcfadden HPI: 06/23 11:26 73-year-old man comes emergency department complaining of chest wall pain at the site jj9 of his previous sternotomy. The patient reports he has had this pain since he did the CABG in the sternotomy wires seems to be piercing his skin. He denies fever, chills, nausea, vomiting, shortness of breath or any other problems. Past medical history significant for chronic pain, COPD, CVA, hypertension, migraine, pneumonia, seizures.. Historical: - Allergies: 11:13 Aspirin; ss 11:13 PENICILLINS; ss - PMHx: 11:13 Chronic pain; COPD; CVA; Hypertension; Migraine; Pneumonia; Seizures; swelling and pain ss to L lower leg; - PSHx: 11:13 back surgery; heart surgery; Right hip surgery; ss - Infectious Disease History:: Denies. - Social history:: Smoking status: Patient reports the use of cigarette tobacco products, smokes one-half pack cigarettes per day. ROS: 11:27 Cardiovascular: Positive for chest pain, with cough, with movement, of the Sternal area jj9 reproduced with palpation, 20:17 Constitutional: Negative for fever, chills, and weight loss, Eyes: Negative for injury, jj9 pain, redness, and discharge, ENT: Negative for injury, pain, and discharge, Neck: Negative for injury, pain, and swelling, Cardiovascular: chest wall pain Respiratory: Negative for shortness of breath, cough, wheezing, and pleuritic chest pain, Abdomen/GI: Negative for abdominal pain, nausea, vomiting, diarrhea, and constipation, Back: Negative for injury and pain, MS/Extremity: Negative for injury and deformity, Skin: Negative for injury, rash, and discoloration, Neuro: Negative for headache, weakness, numbness, tingling, and seizure, Psych: Negative for depression, anxiety, suicide ideation, homicidal ideation, and hallucinations, Allergy/Immunology: Negative for hives, rash, and allergies, Hematologic/Lymphatic: Negative for swollen nodes, abnormal bleeding, and unusual bruising, Exam: 11:27 Cardiovascular: Tenderness to sternal area with palpation and movements., jj9 20:18 Constitutional: This is a well developed, well nourished patient who is awake, alert, jj9 and in no acute distress. Head/Face: Normocephalic, atraumatic. Eyes: tender to palpation over sternal area ENT: Nares patent. No nasal discharge, no septal abnormalities noted. Tympanic membranes are normal and external auditory canals are clear. Oropharynx with no redness, swelling, or masses, exudates, or evidence of obstruction, uvula midline. Mucous membranes moist. Neck: Trachea midline, no thyromegaly or masses palpated, and no cervical lymphadenopathy. Supple, full range of motion without nuchal rigidity, or vertebral point tenderness. No Meningismus. Chest/axilla: Normal chest wall appearance and motion. Nontender with no deformity. No lesions are appreciated. Cardiovascular: Regular rate and rhythm with a normal S1 and S2. No gallops, murmurs, or rubs. Normal PMI, no JVD. No pulse deficits. Respiratory: Lungs have equal breath sounds bilaterally, clear to auscultation and percussion. No rales, rhonchi or wheezes noted. No increased work of breathing, no retractions or nasal flaring. Abdomen/GI: Soft, non-tender, with normal bowel sounds. No distension or tympany. No guarding or rebound. No evidence of tenderness throughout. Skin: Warm, dry with normal turgor. Normal color with no rashes, no lesions, and no evidence of cellulitis. MS/ Extremity: Pulses equal, no cyanosis. Neurovascular intact. Full, normal range of motion. Neuro: Awake and alert, GCS 15, oriented to person, place, time, and situation. Cranial nerves II-XII grossly intact. Motor strength 5/5 in all extremities. Sensory grossly intact. Cerebellar exam normal. Normal gait. Vital Signs: 11:11 BP 140 / 78; Pulse 67; Resp 23; Temp 97.6(TE); Pulse Ox 96% ; Height 5 ft. 8 in. ; Pain ss 10/10; 11:51 BP 146 / 70; Pulse 65; Resp 16 S; Pulse Ox 94% on R/A; kc6 12:59 BP 161 / 77; Pulse 63; Resp 16 S; Pulse Ox 95% on R/A; kc6 14:32 BP 146 / 80; Pulse 63; Resp 16 S; Pulse Ox 96% on R/A; kc6 11:11 Pain Scale: Adult ss MDM: 11:13 Medical Screening Exam initiated jj9 11:28 Differential diagnosis: acute myocardial infarction, acute pericarditis, anxiety, jj9 coronary artery disease chest wall pain, congestive heart failure costochondritis, esophagitis, gastritis, hiatal hernia, myocarditis, pericarditis, pleurisy, pneumonia. 13:59 Care significantly affected by the following Social Determinants of Health: Unable to jose maria communicate with his doctor . Medication response: morphine relieved the patient's pain. Symptoms have resolved. 14:00 Response to treatment: the patient's symptoms have resolved after treatment. ED course: jose maria 73-year-old man comes emergency department for evaluation of chest wall pain specifically at the sternal area where the sternotomy was done for CABG. The patient reports this is a chronic pain that comes and goes all the time he has been having more pain over the last 4 days. He denies chest pain shortness of breath or any other problem. His medical history significant for chronic pain, COPD, CVA, hypertension, migraines, seizure disorders as well. Workup today is negative for ACS cardiac enzymes negative x 2, EKG showing sinus rhythm first-degree AV block LVH rate of [address]-T changes, no evidence of intrathoracic abnormality is on x-ray. Rest of the lab work is within normal. The patient received IV morphine with significant improvement of his pain. I will discharge the patient home this is chest wall pain likely associated to her sternotomy wires. Advised to follow with PCP continue medications. Tramadol will be prescribed for pain return to the emergency department if worsening of symptoms or of any other problem. The patient understand agrees with the plan.. 06/23 11:37 Order name: Basic Metabolic Panel; Complete Time: 12:25 EDNM 06/23 11:37 Order name: CBC with Automated Diff; Complete Time: 12:25 EDNM 06/23 11:37 Order name: Troponin High Sensitivity; Complete Time: 12:25 EDNM 06/23 13:13 Order name: Troponin HS; Complete Time: 13:50 [facility] 06/23 11:38 Order name: Chest Single View; Complete Time: 13:01 EDMS 06/23 11:24 Order name: Cardiac monitoring; Complete Time: [facility] 06/23 11:24 Order name: EKG - Nurse/Tech; Complete Time: [facility] 06/23 11:24 Order name: IV Saline Lock; Complete Time: 06/23 11:24 Order name: Labs collected and sent; Complete Time: [facility] 06/23 11:24 Order name: O2 Per Protocol; Complete Time: [facility] 06/23 11:24 Order name: O2 Sat Monitoring; Complete Time: Administered Medications: 12:30 Drug: morphine IVP or IV 4 mg IVP once over 4 mins Route: IVP; Infused Over: 4 mins; 6 Site: left forearm; 12:59 Follow up: Response: No adverse reaction; Pain is decreased [facility] Disposition Summary: 06/23/24 14:04 Discharge Ordered Notes: Location: Home [facility] Problem: chronic jj9 Symptoms: have improved jj9 Condition: Stable jj9 Diagnosis - Chest pain, unspecified jj9 Followup: jj9 - With: Private Physician - When: 24 Hours - Reason: Discharge Instructions: - Discharge Summary Sheet jj9 - Nonspecific Chest Pain, Adult jj9 Forms: - Medication Reconciliation Form jj9 - Antibiotic Education jj9 - Prescription Opioid Use jj9 - Patient Portal Instructions jj9 - Leadership Thank You Letter jj9 Prescriptions: - Tramadol 50 mg Oral Tablet - take 1 tablet ORAL route every 8 hours as needed; 12 tablet; Refills: 0, jj9 Product Selection Permitted Signatures: Dispatcher [employer] [facility] Cheli Brantley, RN RN Alma Spicer RN RN kc6 Juan Carlos Mcfadden MD MD jj9 Corrections: (The following items were deleted from the chart) 13:13 13:13 Troponin High Sensitivity+C.LAB.BRZ ordered. [facility] 13:59 11:26 73-year-old man comes emergency department complaining of chest wall pain at the jj9 site of his previous sternotomy. The patient reports he has had this pain since he did the CABG in the sternotomy wires seems to be piercing his skin. He denies fever, chills, nausea, vomiting, shortness of breath or any other problems. Past medical history significant for chronic pain, COPD, CVA, hypertension, migraine, pneumonia, seizures.. jj9
[2024-06-23 16:25] VITALS: TEMP 97.6
[2024-06-23 16:28] VITALS: BP 146/80; O2SAT 96
--- NOTE | 2024-06-26 14:53 | EKG ---
Test Date: 2024-06-23 Test Time: 11:13:53 Content Strategist: BRANDON MEASUREMENT RESULTS: Intervals: Rate: 67 [place]: 260 QRSD: 98 QT: 394 QTc: 416 [place]: P: 24 TX: 260 QRS: -21 T: -24 INTERPRETIVE STATEMENTS: Sinus rhythm with 1st degree AV block Minimal voltage criteria for LVH, may be normal variant Borderline ECG Compared to ECG 06/01/2024 10:50:24 Left ventricular hypertrophy now present Sinus bradycardia no longer present Left-axis deviation no longer present Electronically Signed On 06-26-24 14:44:07 CDT by Lloyd Jeffers
== END 2024-06-23 15:40 | disposition home or self-care (01) ==
LOC: ER 11:08
DX: R07.9 Chest pain, unspecified (principal); I10 Essential (primary) hypertension; J44.9 Chronic obstructive pulmonary disease, unspecified; F17.210 Nicotine dependence, cigarettes, uncomplicated; Z95.1 Presence of aortocoronary bypass graft
CPT/HCPCS: 36415; 71045; 80048; 84484; 85025; 93005; 96374; 99285

== ENCOUNTER 2024-08-04 19:42 | Emergency (ER) | payer OTHER ==
[2024-08-04] MEDS ORDERED: HYDROCODONE/APAP 5/325 MG TAB ONE (20:21)
--- NOTE | 2024-08-04 21:07 | RAD REPORT ---
EXAMINATION: ONE VIEW CHEST XR CLINICAL INDICATION: CHEST PAIN TECHNIQUE: Frontal chest projection is submitted. Examination is limited by patient positioning and t echnique. COMPARISON: 06/23/2024 FINDINGS: Mild interstitial pulmonary edema. The heart is upper limit of normal in size. No displaced fractures identified. Aortic atherosclerosis. IMPRESSION: Mild CHF suspected.
[2024-08-04 21:30] LABS: PT Prothrombin Time 12.9 SECONDS (10-13.0); Protime INR 1.14
[2024-08-04 21:33] LABS: Absolute Lymphocytes (CBC) 1.2 K/uL (0.7-4.9); Absolute Monocytes 0.9 K/uL (0.1-1.3); Absolute Neutrophil 3.1 K/uL (1.8-8.0); Basophils % 0.8 % (0-1.3); Eosinophils % 0.8 % (0-4.4); Hematocrit 39.2 % (39.6-49.0); Hemoglobin 13.5 g/dL (13.6-17.9); Lymphocytes % 23.3 % (15.3-44.8); MCH 32.4 pg (27.0-35.0); MCHC 34.4 g/dL (32.0-36.0); MCV 94.2 fL (80-100); MPV 9.9 fL (7.6-11.3); Monocytes % 17.5 % (3.3-12.3); Neutrophils % 57.6 % (41.7-73.7); Nucleated Red Blood Cells % 0.2 % (0-0); Platelets 214 thou/uL (152-406); RBC Red Blood Cell Count 4.16 M/uL (4.33-5.43); Red Cell Distribution Width 16.4 % (12.1-15.2)
--- NOTE | 2024-08-04 21:58 | EDPHYS ---
Physician Documentation [facility] Name: Bryan Graf Age: 73 yrs Sex: Male : 1950 Arrival Date: 08/04/2024 Time: 19:42 Bed 4 Private MD: ED Physician Virginia Johnston HPI: 08/04 22:39 This 73 yrs old Male presents to ER via EMS with complaints of Post Surgical gb1 Pain - sternotomy to removed malfunctioned wres. 22:39 Mr. Bradford with a 73-year-old male that is here due to chest wall pain secondary to a gb1 sternotomy that was revised. He had malfunctioning wires and the surgery was revised on last week by [facility] CT surgery team at [place]. Patient has pain with late breathing and he states he is short of breath. He has got a dressing intact that skin mildly bleeding but nothing out of the ordinary prior to his initial surgery. He has history of chronic pain, COPD, CVA, hypertension, migraine, pneumonia, seizures and swelling and pain all over.. Historical: - Allergies: 19:49 Aspirin; vc1 19:49 PENICILLINS; vc1 - PMHx: 19:49 Chronic pain; COPD; CVA; Hypertension; Migraine; Pneumonia; Seizures; swelling and pain vc1 to L lower leg; - PSHx: 19:49 back surgery; heart surgery; Right hip surgery; Sternotomy; To remove malfunctioned vc1 sternotomy wires (July 31, 2024); CABG (2016); - Immunization history:: Client reports having NOT received the Covid vaccine. Flu vaccine is not up to date. - Infectious Disease History:: Denies. - Social history:: Smoking status: Patient reports the use of cigarette tobacco products, smokes one pack cigarettes per day. Exam: 22:39 Constitutional: This is a poorly developed cachectic 73-year-old male. He gb1 appears just disheveled and in mild to moderate pain. Head/Face: Normocephalic, atraumatic. Eyes: Pupils equal round and reactive to light, extra-ocular motions intact. Lids and lashes normal. Conjunctiva and sclera are non-icteric and not injected. Cornea within normal limits. Periorbital areas with no swelling, redness, or edema. Neck: Trachea midline, no thyromegaly or masses palpated, and no cervical lymphadenopathy. Supple, full range of motion without nuchal rigidity, or vertebral point tenderness. No Meningismus. Chest/axilla: Patient has moderate bruising and ecchymosis on the anterior chest wall from the sternal notch down to the xiphoid. He has a dressing with intact and has got some dried blood with the skin pen that is marked. He has staccato breathing secondary to pain on exam. Cardiovascular: Regular rate and rhythm with a normal S1 and S2. No gallops, murmurs, or rubs. Normal PMI, no JVD. No pulse deficits. Respiratory: Lungs have equal breath sounds bilaterally, clear to auscultation and percussion. No rales, rhonchi or wheezes noted. No increased work of breathing, no retractions or nasal flaring. Abdomen/GI: Soft, non-tender, with normal bowel sounds. No distension or tympany. No guarding or rebound. No evidence of tenderness throughout. Skin: Warm, dry with normal turgor. Normal color with no rashes, no lesions, and no evidence of cellulitis. MS/ Extremity: Pulses equal, no cyanosis. Neurovascular intact. Full, normal range of motion. Vital Signs: 19:45 BP 149 / 78; Pulse 90; Resp 18; Temp 97.9; Pulse Ox 95% ; Weight 69.4 kg; Height 5 ft. vc1 8 in. ; Pain 10/10; 20:30 BP 122 / 72; Pulse 80; Resp 23; Pulse Ox 94% on R/A; vc1 21:56 BP 136 / 73; Pulse 72; Resp 18; Pulse Ox 95% on 2 lpm NC; cp4 23:00 BP 128 / 68; Pulse 73; Resp 23; Pulse Ox 96% ; vc1 19:45 Body Mass Index 23.26 (69.40 kg, 172.72 cm) vc1 19:45 Pain Scale: Adult vc1 MDM: 20:13 Medical Screening Exam initiated gb1 22:39 Data reviewed: vital signs, nurses notes, lab test result(s), radiologic studies, plain gb1 films. ED course: 73-year-old male status post revision of a sternotomy on last week by CT surgery at [place]. Patient is here with chest pain and some findings of acute pulmonary edema on his x-ray. No focal pneumonia on chest x-ray, sternotomy wires are visible on the x-ray today. BNP and troponin are normal however I do believe that the wound and chest x-ray findings do need clearance by CT surgery due to his recent postoperative state. Patient is also appears that he cannot care for himself at home and has poor pain management. He is requesting narcotics for pain and needs cardiac clearance prior to discharge home today. I am transferring him to [facility] accepted ER to ER transfer by on-call CT surgeon.. 08/04 21:10 Order name: CBC with Diff; Complete Time: :43 08/04 21:10 Order name: NT PRO-BNP; Complete Time: :08/04 21:10 Order name: PT-INR; Complete Time: :08/04 21:10 Order name: Troponin HS; Complete Time: :08/04 20:15 Order name: Chest Single View XRAY; Complete Time: 21:08 08/04 21:10 Order name: Cardiac monitoring; Complete Time: 21:11 08/04 21:10 Order name: EKG - Nurse/Tech; Complete Time: 21:11 08/04 21:10 Order name: IV Saline Lock; Complete Time: 21:11 08/04 21:10 Order name: Labs collected and sent; Complete Time: 21:11 08/04 21:10 Order name: O2 Per Protocol; Complete Time: 21:11 08/04 21:10 Order name: O2 Sat Monitoring; Complete Time: 21:11 Administered Medications: 20:24 Drug: HYDROcodone-acetaminophen PO 5 mg-325 mg 1 tabs PO once Route: PO; vc1 23:08 Follow up: Response: No adverse reaction; Pain is decreased vc1 Disposition Summary: 08/04/24 21:57 Transfer Ordered Notes: Transfer Location: [facility] System gb1 Reason: Higher level of care gb1 Condition: Stable gb1 Problem: an acute exacerbation gb1 Symptoms: have worsened gb1 Accepting Physician: Dr. Madrigal(08/04/24 23:30) vc1 Diagnosis - Chest pain on breathing gb1 - Other acute postprocedural pain gb1 Forms: - Medication Reconciliation Form gb1 - SBAR form gb1 Signatures: Dispatcher [employer] EDMS Calcote, Anisha, RN RN vc1 Virginia Johnston MD MD gb1 Corrections: (The following items were deleted from the chart) 20:15 20:15 Chest Single View+RAD.RAD.BRZ ordered. EDMS EDMS 21:11 21:11 CBC+H.LAB.BRZ ordered. EDMS EDMS 21:11 21:11 PROBNP+C.LAB.BRZ ordered. EDMS EDMS 21:11 21:11 PROTIME (+INR)+COAG.LAB.BRZ ordered. EDMS EDMS 21:11 21:11 Troponin High Sensitivity+C.LAB.BRZ ordered. EDNV EDMS :57 21:57 Dr. Madrigal [facility] gb 22:43 22:39 ED course: 73-year-old male status post revision of a sternotomy on last week by [facility] CT surgery at [place]. Patient is here with chest pain and some findings of acute pulmonary edema on his x-ray. BNP and troponin are normal however I do believe that the wound and chest x-ray findings do need clearance by CT surgery due to his recent postoperative state. Patient is also appears that he cannot care for himself at home and has poor pain management. He is requesting narcotics for pain and needs cardiac clearance prior to discharge home today. I am transferring him to [facility] accepted ER to ER transfer by on-call CT surgeon.. gb1 23:30 21:57 Dr. Madrigal gb1 vc1
--- NOTE | 2024-08-04 21:58 | ER ---
Nurse's Notes [facility] Name: Bryan Graf Age: 73 yrs Sex: Male : 1950 Arrival Date: 08/04/2024 Time: 19:42 Bed 4 Private MD: Diagnosis: Chest pain on breathing;Other acute postprocedural pain Presentation: 08/04 19:45 Chief complaint: EMS states: c/o pain to the incision after having sternal wires vc1 removed on Saturday at [facility]. Coronavirus screen: Client denies travel out of the [place] in the last 14 days. At this time, the client does not indicate any symptoms associated with coronavirus-19. Ebola Screen: Patient negative for fever greater than or equal to 101.5 degrees Fahrenheit, and additional compatible Ebola Virus Disease symptoms Patient denies exposure to infectious person. Patient denies travel to an Ebola-affected area in the 21 days before illness onset. No symptoms or risks identified at this time. Initial Sepsis Screen: Does the patient meet any 2 criteria? No. Patient's initial sepsis screen is negative. Does the patient have a suspected source of infection? No. Patient's initial sepsis screen is negative. Risk Assessment: Do you want to hurt yourself or someone else? Patient reports no desire to harm self or others. Onset of symptoms was August 03, 2024. Care prior to arrival: None. had sternal wires removed from [facility] Saturday and discharged home saturday. Activity prior to arrival: None. 19:45 Method Of Arrival: EMS: [facility] vc1 19:45 Acuity: GELACIO 3 vc1 Triage Assessment: 19:52 General: Appears in no apparent distress. uncomfortable, Behavior is cooperative, vc1 appropriate for age. Pain: Complains of pain in xiphoid area and mid-sternal area Pain does not radiate. Pain currently is 10 out of 10 on a pain scale. Quality of pain is described as sharp, Aggravated by movement and coughing Noted to be guarding, resistant to movement. EENT: No deficits noted. No signs and/or symptoms were reported regarding the EENT system. Neuro: Level of Consciousness is awake, alert, obeys commands, Oriented to person, place, time, situation, Appropriate for age. Cardiovascular: Heart tones S1 S2 present Capillary refill < 3 seconds Patient's skin is warm and dry. Respiratory: Reports pain with cough since yesterday Pain is 10 out of 10 on a pain scale. Airway is patent Respiratory effort is even, unlabored, Respiratory pattern is regular, symmetrical, Breath sounds are clear. GI: No deficits noted. No signs and/or symptoms were reported involving the gastrointestinal system. : No deficits noted. No signs and/or symptoms were reported regarding the genitourinary system. Derm: Skin scar down sternum, no redness noted. Purple and brown bruising to bilateral chest wall. Musculoskeletal: No deficits noted. No signs and/or symptoms reported regarding the musculoskeletal system. Circulation, motion, and sensation intact. Range of motion:. Historical: - Allergies: 19:49 Aspirin; vc1 19:49 PENICILLINS; vc1 - PMHx: 19:49 Chronic pain; COPD; CVA; Hypertension; Migraine; Pneumonia; Seizures; swelling and pain vc1 to L lower leg; - PSHx: 19:49 back surgery; heart surgery; Right hip surgery; Sternotomy; To remove malfunctioned vc1 sternotomy wires (July 31, 2024); CABG (2016); - Immunization history:: Client reports having NOT received the Covid vaccine. Flu vaccine is not up to date. - Infectious Disease History:: Denies. - Social history:: Smoking status: Patient reports the use of cigarette tobacco products, smokes one pack cigarettes per day. Screenin:51 [facility] ED Fall Risk Assessment (Adult) History of falling in the last 3 months, vc1 including since admission No falls in past 3 months (0 pts) Confusion or Disorientation No (0 pts) Intoxicated or Sedated No (0 pts) Impaired Gait No (0 pts) Mobility Assist Device Used No (0 pt) Altered Elimination No (0 pt) Score/Fall Risk Level 0 - 2 = Low Risk Oriented to surroundings, Maintained a safe environment, Educated pt \T\ family on fall prevention, incl call for assistance when getting out of bed, Hourly rounding (assess needs \T\ fall precautionary measures) done. Abuse screen: Denies threats or abuse. Nutritional screening: No deficits noted. Tuberculosis screening: No symptoms or risk factors identified. Assessment: 19:55 General: See triage assessment. vc1 20:40 Reassessment: Patient appears in no apparent distress at this time. No changes from vc1 previously documented assessment. Patient and/or family updated on plan of care and expected duration. Pain level reassessed. Patient is alert, oriented x 3, equal unlabored respirations, skin warm/dry/pink. 23:30 Reassessment: Patient appears in no apparent distress at this time. No changes from vc1 previously documented assessment. Patient and/or family updated on plan of care and expected duration. Pain level reassessed. Vital Signs: 19:45 BP 149 / 78; Pulse 90; Resp 18; Temp 97.9; Pulse Ox 95% ; Weight 69.4 kg; Height 5 ft. vc1 8 in. ; Pain 10/10; 20:30 BP 122 / 72; Pulse 80; Resp 23; Pulse Ox 94% on R/A; vc1 21:56 BP 136 / 73; Pulse 72; Resp 18; Pulse Ox 95% on 2 lpm NC; cp4 23:00 BP 128 / 68; Pulse 73; Resp 23; Pulse Ox 96% ; vc1 19:45 Body Mass Index 23.26 (69.40 kg, 172.72 cm) vc1 19:45 Pain Scale: Adult vc1 ED Course: 19:43 Patient arrived in ED. cp4 19:48 Triage completed. vc1 19:50 Arm band placed on right wrist. vc1 19:51 Patient has correct armband on for positive identification. Bed in low position. Call vc1 light in reach. Provided Education on: plan of care. air sampling and monitoring on. Pulse ox on. NIBP on. 19:55 Inserted saline lock: 22 gauge in right antecubital area, using aseptic technique. mm11 Blood collected. Flushed with 10 mL NS. 20:11 Virginia Johnston MD is Attending Physician. gb1 20:39 Anisha Cuba, JOSEPH is Primary Nurse. vc1 21:02 Chest Single View XRAY In Process Unspecified. EDMS 21:44 initiated transfer with [facility] - Olegario spoke with elda. kmf 21:59 pt was accepted to [facility] by Dr. Lopez, J \T\ 2158. accepting admin elda g \T\2158. km f Number for nurse to nurse report [phone]. [facility] to transfer pt. 23:29 No provider procedures requiring assistance completed. Patient transferred, IV remains vc1 in place. Administered Medications: 20:24 Drug: HYDROcodone-acetaminophen PO 5 mg-325 mg 1 tabs PO once Route: PO; vc1 23:08 Follow up: Response: No adverse reaction; Pain is decreased vc1 Medication: 19:52 VIS not applicable for this client. vc1 Outcome: 21:57 ER care complete, transfer ordered by . gb1 23:29 Transferred by ground EMS to other acute care facility: [facility] [place]. vc1 23:29 Condition: stable 23:29 Instructed on the need for transfer, 23:30 Patient left the ED. vc1 Signatures: Dispatcher [employer] Anisha Silva RN RN vc1 Virginia Johnston MD MD gb1 Miranda Calixto cp4 Aisha Willson [facility] leona sullivan mm11
[2024-08-04 23:41] VITALS: TEMP 97.9
[2024-08-05 00:08] VITALS: BP 128/68; O2SAT 96
--- NOTE | 2024-08-05 12:34 | EKG ---
Test Date: 2024-08-04 Test Time: 19:48:51 Automotive Maintenance Technician: KAVITHA MEASUREMENT RESULTS: Intervals: Rate: 90 [place]: QRSD: 104 QT: 376 QTc: 459 [place]: P: [place]: QRS: -29 T: 130 INTERPRETIVE STATEMENTS: Sinus rhythm, first degree block with PVCs Incomplete right bundle branch block Nonspecific ST and T wave abnormality Abnormal ECG Compared to ECG 06/23/2024 11:13:53 Incomplete right bundle-branch block now present ST (T wave) deviation now present First degree AV block no longer present Left ventricular hypertrophy no longer present Electronically Signed On 08-05-24 12:33:54 CDT by Lloyd Jeffers
== END 2024-08-04 23:30 | disposition short-term general hospital (02) ==
LOC: ER 19:42
DX: G89.18 Other acute postprocedural pain (principal); J44.9 Chronic obstructive pulmonary disease, unspecified; I10 Essential (primary) hypertension; F17.210 Nicotine dependence, cigarettes, uncomplicated
CPT/HCPCS: 36415; 71045; 83880; 84484; 85025; 85610; 93005; 99285

== ENCOUNTER 2024-08-28 10:40 | Emergency (ER) | payer OTHER ==
[2024-08-28] MEDS ORDERED: HYDROCODONE/APAP 7.5/325 MG TAB ONE (10:54)
[2024-08-28 11:32] LABS: Absolute Basophils 0.1 K/uL (0-0.5); Absolute Lymphocytes (CBC) 1.5 K/uL (0.7-4.9); Absolute Monocytes 1.1 K/uL (0.1-1.3); Basophils % 1.3 % (0-1.3); Eosinophils % 0.6 % (0-4.4); Lymphocytes % 26.8 % (15.3-44.8); MCH 31.5 pg (27.0-35.0); MCHC 34.3 g/dL (32.0-36.0); MCV 91.9 fL (80-100); MPV 9.4 fL (7.6-11.3); Monocytes % 19.3 % (3.3-12.3); Platelets 219 thou/uL (152-406); RBC Red Blood Cell Count 4.46 M/uL (4.33-5.43)
--- NOTE | 2024-08-28 12:17 | RAD REPORT ---
EXAMINATION: ONE VIEW CHEST XR CLINICAL INDICATION: Male, 73 years old.,CHEST PAIN TECHNIQUE: Frontal chest projection is submitted. Examination is limited by patient positioning and t echnique. COMPARISON: 08/04/2024 FINDINGS: The lungs are grossly clear apart from mild central interstitial prominence, stable although suboptim al inspiratory effort somewhat limits evaluation. No pneumothorax or sizable effusion. The heart is normal in size. Mediastinal contours are unchanged with perihilar surgical clips. IMPRESSION: Stable central interstitial prominence, may reflect central congestion, stable.
[2024-08-28 12:56] LABS: Albumin 3.6 g/dL (3.4-5.0); Albumin/Globulin Ratio 0.8 (1.1-1.8); Alkaline Phosphatase 112 U/L (45-117); Anion Gap 8.5 mEq/L (5.0-15.0); BUN Blood Urea Nitrogen 25 mg/dL (7-18); Bicarbonate 29 mEq/L (21-32); Bilirubin Total 0.3 mg/dL (0.2-1.0); Globulin 4.7 g/dL (2.3-3.5); Glomerular Filtration Rate 76 ml/min (=/>90); Glucose Level 130 mg/dL (74-106); Protein, Total 8.3 g/dL (6.4-8.2); Sodium Level 137 mEq/L (136-145)
[2024-08-28 13:03] LABS: ALT/SGPT < 14 U/L (16-61); AST/SGOT 11 U/L (15-37); Bilirubin Direct < 0.2 mg/dL (0-0.2); Bilirubin Indirect, Calculated 0.1 mg/dL (0.2-0.8); Potassium 3.5 mEq/L (3.5-5.1)
[2024-08-28] MEDS ORDERED: GABAPENTIN 300 MG CAP ONE (14:24)
--- NOTE | 2024-08-28 14:24 | ER ---
Nurse's Notes [facility] Name: Bryan Graf Age: 73 yrs Sex: Male : 1950 Arrival Date: 08/28/2024 Time: 10:40 Bed 15 Private MD: Diagnosis: Chest wall pain Presentation: 08/28 10:44 Chief complaint: EMS states: toned out for chest wall pain caused by a procedure he had me1 about a week ago. States he had a sternal wire replaced that had come through his skin. Reports the pain is worsening instead of getting better. Pain is 10/10. Coronavirus screen: Vaccine status: Patient reports being unvaccinated. Ebola Screen: No symptoms or risks identified at this time. Initial Sepsis Screen: Does the patient meet any 2 criteria? No. Patient's initial sepsis screen is negative. Does the patient have a suspected source of infection? No. Patient's initial sepsis screen is negative. Risk Assessment: Do you want to hurt yourself or someone else? Patient reports no desire to harm self or others. Onset of symptoms is unknown. 10:44 Method Of Arrival: EMS: [facility] me1 10:44 Acuity: GELACIO 3 me1 Triage Assessment: 10:48 General: Appears uncomfortable, unkempt, well developed, well nourished, Behavior is me1 calm, cooperative, appropriate for age. Pain: Complains of pain in chest Pain does not radiate. Pain currently is 10 out of 10 on a pain scale. Quality of pain is described as sharp, Pain began gradually, Is continuous. EENT: No signs and/or symptoms were reported regarding the EENT system. Neuro: Level of Consciousness is awake, alert, obeys commands, Oriented to person, place, time, situation, Appropriate for age. Cardiovascular: Patient's skin is warm and dry. Respiratory: Airway is patent Respiratory effort is even, labored, Respiratory pattern is regular, tachypnea. GI: No signs and/or symptoms were reported involving the gastrointestinal system. : No signs and/or symptoms were reported regarding the genitourinary system. Derm: Skin is fragile, with poor turgor Wound noted mid-sternal area Wound is surgical incision that is healed. Musculoskeletal: No signs and/or symptoms reported regarding the musculoskeletal system. Historical: - Allergies: 10:48 Aspirin; me1 10:48 PENICILLINS; me1 - PMHx: 10:48 Chronic pain; COPD; CVA; Hypertension; Migraine; Pneumonia; Seizures; swelling and pain me1 to L lower leg; - PSHx: 10:48 back surgery; CABG (2017); heart surgery; Right hip surgery; Sternotomy; To remove me1 malfunctioned sternotomy wires (July 31); - Immunization history:: Adult Immunizations up to date. - Infectious Disease History:: Denies. - Social history:: Smoking status: Patient reports the use of cigarette tobacco products, smokes one pack cigarettes per day. Screenin:51 [facility] ED Fall Risk Assessment (Adult) History of falling in the last 3 months, me1 including since admission No falls in past 3 months (0 pts) Confusion or Disorientation No (0 pts) Intoxicated or Sedated No (0 pts) Impaired Gait No (0 pts) Mobility Assist Device Used No (0 pt) Altered Elimination No (0 pt) Score/Fall Risk Level 0 - 2 = Low Risk Maintained a safe environment, Provided non-skid footwear, Hourly rounding (assess needs \T\ fall precautionary measures) done. Abuse screen: Denies threats or abuse. Nutritional screening: No deficits noted. Tuberculosis screening: No symptoms or risk factors identified. Assessment: 10:51 General: See triage assessment. Pain: Complains of pain in mid-sternal area. me1 Vital Signs: 10:44 BP 139 / 70; Pulse 71; Resp 17; Temp 98; Pulse Ox 96% ; Weight 72.57 kg; Height 5 ft. 8 me1 in. ; Pain 10/10; 11:00 BP 132 / 69; Pulse 69; Resp 17; Pulse Ox 96% ; me1 12:00 BP 132 / 74; Pulse 65; Resp 17; Pulse Ox 96% ; me1 13:00 BP 127 / 62; Pulse 64; Resp 17; Pulse Ox 97% ; me1 14:00 BP 131 / 55; Pulse 57; Resp 17; Pulse Ox 98% ; me1 14:00 BP 131 / 66; Pulse 56; Resp 18; Pulse Ox 97% ; me1 10:44 Body Mass Index 24.33 (72.57 kg, 172.72 cm) me1 10:44 Pain Scale: Adult md1 ED Course: 10:44 Patient arrived in ED. me1 10:45 Tyler Mtz MD is Attending Physician. rt 10:48 Triage completed. me1 10:48 Arm band placed on Patient placed in an exam room. me1 10:51 Patient has correct armband on for positive identification. Bed in low position. Call me1 light in reach. Side rails up X2. Provided Education on: POC. Verbalized understanding.. Client placed on continuous cardiac and pulse oximetry monitoring. NIBP monitoring applied. court monitor on. Pulse ox on. NIBP on. 10:51 No provider procedures requiring assistance completed. Patient maintains SpO2 me1 saturation greater than 95% on room air. 10:53 Paris White, JOSEPH is Primary Nurse. me1 11:14 Basic Metabolic Panel Sent. me1 11:14 CBC with Diff Sent. me1 11:14 LFT's Sent. me1 11:14 Troponin HS Sent. me1 11:14 Initial lab(s) drawn, by me, sent to lab. me1 11:45 XRAY Chest (1 view) In Process Unspecified. EDMS 12:52 Lab(s) recollected, by me, sent to lab. kc6 14:09 called Emerald from the [facility] transfer center to page the CT Surgeon from [facility] on eb call for Dr. Breaux for patient consultation. 14:[address] Madrigal the CT surgeon master control operator for [facility] [place] with Dr. Mtz. eb 14:24 Isak Griffin DO is Referral Physician. rt 14:44 IV discontinued, intact, bleeding controlled, No redness/swelling at site. Pressure me1 dressing applied. Administered Medications: 11:02 Drug: Hydrocodone-Acetaminophen PO (7.5 mg-325 mg) 1 tabs PO once Route: PO; me1 12:34 Follow up: Response: No adverse reaction; Pain is unchanged, physician notified me1 14:31 Drug: Gabapentin PO 300 mg PO once Route: PO; me1 14:34 Follow up: Response: No adverse reaction me1 Medication: 10:51 VIS not applicable for this client. me1 Outcome: 14:24 Discharge ordered by . rt 14:44 Discharged to home via wheelchair, with family, me1 14:44 Condition: stable 14:44 Discharge instructions given to patient, Instructed on discharge instructions, follow up and referral plans. medication usage, Demonstrated understanding of instructions, follow-up care, medications, Prescriptions given X 1, 14:45 Patient left the ED. me1 Signatures: Dispatcher [employer] Hailey Marina Kaitlyn, RN RN kc6 Tyler Mtz MD MD rt Paris White RN RN me1 Corrections: (The following items were deleted from the chart) 10:52 10:48 Derm: Skin is fragile, with poor turgor Wound noted mid-sternal area Wound is me1 surgical incision me1
--- NOTE | 2024-08-28 14:24 | EDPHYS ---
Physician Documentation [facility] Name: Bryan Graf Age: 73 yrs Sex: Male : 1950 Arrival Date: 08/28/2024 Time: 10:40 Bed 15 Private MD: ED Physician Tyler Mtz HPI: 08/28 14:03 This 73 yrs old Male presents to ER via EMS with complaints of Chest Pain. rt 14:08 Patient had a bypass surgery earlier this year, reports that about 1 week ago, he had rt the sternotomy wires removed at [facility]. Reports continued pain to the chest at the area of the sternotomy. Denies other acute complaints at this time, symptoms are moderate in severity, sharp in nature, nonradiating, no other aggravating or alleviating factors.. Historical: - Allergies: 10:48 Aspirin; me1 10:48 PENICILLINS; me1 - PMHx: 10:48 Chronic pain; COPD; CVA; Hypertension; Migraine; Pneumonia; Seizures; swelling and pain me1 to L lower leg; - PSHx: 10:48 back surgery; CABG (2016); heart surgery; Right hip surgery; Sternotomy; To remove me1 malfunctioned sternotomy wires (July 31); - Immunization history:: Adult Immunizations up to date. - Infectious Disease History:: Denies. - Social history:: Smoking status: Patient reports the use of cigarette tobacco products, smokes one pack cigarettes per day. ROS: 14:10 Constitutional: Negative for fever, chills, and weight loss, Respiratory: Negative for rt shortness of breath, cough, wheezing, and pleuritic chest pain, Abdomen/GI: Negative for abdominal pain, nausea, vomiting, diarrhea, and constipation, MS/Extremity: Negative for injury and deformity, Skin: Negative for injury, rash, and discoloration, Neuro: Negative for headache, weakness, numbness, tingling, and seizure, 14:10 Cardiovascular: Positive for chest pain, Negative for edema, Exam: 14:10 Constitutional: This is a well developed, well nourished patient who is awake, alert, rt and in no acute distress. Head/Face: Normocephalic, atraumatic. Cardiovascular: Regular rate and rhythm with a normal S1 and S2. No gallops, murmurs, or rubs. Normal PMI, no JVD. No pulse deficits. Respiratory: Lungs have equal breath sounds bilaterally, clear to auscultation and percussion. No rales, rhonchi or wheezes noted. No increased work of breathing, no retractions or nasal flaring. Abdomen/GI: Soft, non-tender, with normal bowel sounds. No distension or tympany. No guarding or rebound. No evidence of tenderness throughout. Skin: Warm, dry with normal turgor. Normal color with no rashes, no lesions, and no evidence of cellulitis. MS/ Extremity: Pulses equal, no cyanosis. Neurovascular intact. Full, normal range of motion. Neuro: Awake and alert, GCS 15, oriented to person, place, time, and situation. Cranial nerves II-XII grossly intact. Motor strength 5/5 in all extremities. Sensory grossly intact. Cerebellar exam normal. Normal gait. 14:10 Chest/axilla: Well-healed midline incision, mild bruising surrounding incision site, tenderness at that region.. 14:10 ECG was reviewed by the Attending Physician. Vital Signs: 10:44 BP 139 / 70; Pulse 71; Resp 17; Temp 98; Pulse Ox 96% ; Weight 72.57 kg; Height 5 ft. 8 me1 in. ; Pain 10/10; 11:00 BP 132 / 69; Pulse 69; Resp 17; Pulse Ox 96% ; me1 12:00 BP 132 / 74; Pulse 65; Resp 17; Pulse Ox 96% ; me1 13:00 BP 127 / 62; Pulse 64; Resp 17; Pulse Ox 97% ; me1 14:00 BP 131 / 55; Pulse 57; Resp 17; Pulse Ox 98% ; me1 14:00 BP 131 / 66; Pulse 56; Resp 18; Pulse Ox 97% ; me1 10:44 Body Mass Index 24.33 (72.57 kg, 172.72 cm) me1 10:44 Pain Scale: Adult me1 MDM: 10:48 Medical Screening Exam initiated rt 15:33 Differential diagnosis: Chest wall pain, ACS, chronic pain. HEART Score: History: rt Slightly Suspicious (0), ECG: Normal (0), Age: > or = 65 years (2), Risk Factors: > or = 3 Risk factors for atherosclerotic disease (2), Troponin: < or = 1 x Normal Limit (0), Total Score = 4. Data reviewed: vital signs, nurses notes, lab test result(s), EKG, radiologic studies. Consideration of Admission/Observation Escalation of care including admission/observation considered. Negative troponin, unremarkable EKG, unremarkable chest x-ray, suspect this is a chronic pain issue, do not believe that he requires admission or transfer at this time.. Management of patient was discussed with the following: Core Shaper Sides: I discussed with Dr. Madrigal at [facility], the patient's surgeon, states that he does not believe that this is an issue from the bypass surgery nor the wire removal. States no need for transfer. Will send patient home to follow-up as an outpatient.. I considered the following discharge prescriptions or medication management in the emergency department Medications were administered in the Emergency Department. See MAR. Independent interpretation of the following test(s) in the Emergency Department X-Ray: My interpretation is No acute findings seen on my interpretation of x-ray images. Test considered but Not performed: CT: Low suspicion for PE, CT angiogram not indicated. Care significantly affected by the following chronic conditions: Chronic Obstructive Pulmonary Disease. Counseling: I had a detailed discussion with the patient and/or guardian regarding the historical points, exam findings, and any diagnostic results supporting the discharge/admit diagnosis, lab results, radiology results, the need for outpatient follow up. 08/28 10:53 Order name: Basic Metabolic Panel; Complete Time: 13:10 rt 08/28 10:53 Order name: CBC with Diff rt 08/28 10:53 Order name: LFT's; Complete Time: 13:10 rt 08/28 10:53 Order name: Troponin HS; Complete Time: 13:10 rt 08/28 10:53 Order name: XRAY Chest (1 view); Complete Time: 12:17 rt 08/28 10:53 Order name: Cardiac monitoring; Complete Time: 10:58 rt 08/28 10:53 Order name: EKG - Nurse/Tech; Complete Time: 10:58 rt 08/28 10:53 Order name: IV Saline Lock; Complete Time: 11:14 rt 08/28 10:53 Order name: Labs collected and sent; Complete Time: 11:14 rt 08/28 10:53 Order name: O2 Per Protocol; Complete Time: 11:02 rt 08/28 10:53 Order name: O2 Sat Monitoring; Complete Time: 11:02 rt EC:10 Rate is 70 beats/min. Rhythm is regular, 1st Degree Block with No ectopy. Left axis rt deviation noted. [place] interval is normal. QRS interval is normal. QT interval is normal. No Q waves. T waves are Normal. No ST changes noted. Interpreted by me. Administered Medications: 11:02 Drug: Hydrocodone-Acetaminophen PO (7.5 mg-325 mg) 1 tabs PO once Route: PO; me1 12:34 Follow up: Response: No adverse reaction; Pain is unchanged, physician notified me1 14:31 Drug: Gabapentin PO 300 mg PO once Route: PO; me1 14:34 Follow up: Response: No adverse reaction me1 Disposition Summary: 08/28/24 14:24 Discharge Ordered Notes: Location: Home rt Problem: an ongoing problem rt Symptoms: are unchanged rt Condition: Stable rt Diagnosis - Chest wall pain rt Followup: rt - With: Isak Griffin, DO - When: 2 - 3 days - Reason: Discharge Instructions: - Discharge Summary Sheet rt - Chest Wall Pain rt Forms: - Medication Reconciliation Form rt - Antibiotic Education rt - Prescription Opioid Use rt - Patient Portal Instructions rt - Leadership Thank You Letter rt Prescriptions: - gabapentin 300 mg Oral capsule - take 1 capsule ORAL route 3 times per day; 30 capsule; Refills: 0, Product rt Selection Permitted Signatures: Dispatcher [employer] EDTyler Zepeda MD MD rt Paris White RN RN me1 Corrections: (The following items were deleted from the chart) 10:54 10:54 BASIC METABOLIC PANEL+C.LAB.BRZ ordered. EDMS EDMS 10:54 10:54 CBC+H.LAB.BRZ ordered. EDMS EDMS 10:54 10:54 HEPATIC FUNCTION+C.LAB.BRZ ordered. EDMS EDMS 10:54 10:54 Troponin High Sensitivity+C.LAB.BRZ ordered. EDMS EDMS 10:54 10:54 Chest Single View+RAD.RAD.BRZ ordered. EDMS EDMS
[2024-08-28 15:34] VITALS: TEMP 98
[2024-08-28 15:39] VITALS: O2SAT 97
[2024-08-28 15:41] VITALS: BP 131/66
[2024-08-28 17:12] LABS: Blood Morphology Comment NOT SEEN (NOT SEEN); Platelet Estimate ADEQ; White Blood Cell Scan OK (OK)
--- NOTE | 2024-08-31 16:51 | EKG ---
Test Date: 2024-08-28 Test Time: 10:56:14 Concrete Gun Operator: MEASUREMENT RESULTS: Intervals: Rate: 70 OK: 280 QRSD: 108 QT: 412 QTc: 444 Cecil: P: 66 OK: 280 QRS: -31 T: -66 INTERPRETIVE STATEMENTS: Sinus rhythm with 1st degree AV block Left axis deviation Abnormal ECG Compared to ECG 08/04/2024 19:48:51 First degree AV block now present Left-axis deviation now present Ventricular premature complex(es) no longer present Incomplete right bundle-branch block no longer present ST (T wave) deviation no longer present Electronically Signed On 08-31-24 16:48:25 CDT by Lloyd Jeffers
== END 2024-08-28 14:45 | disposition home or self-care (01) ==
LOC: ER 10:40
DX: R07.89 Other chest pain (principal); I10 Essential (primary) hypertension; F17.210 Nicotine dependence, cigarettes, uncomplicated; Z95.1 Presence of aortocoronary bypass graft
CPT/HCPCS: 36415; 71045; 80048; 80076; 84484; 85025; 93005; 99284

== ENCOUNTER 2025-01-13 02:27 | Emergency (ER) | payer OTHER ==
[2025-01-13 03:02] LABS: Absolute Lymphocytes (CBC) 2.3 K/uL (0.7-4.9); Hematocrit 38.6 % (39.6-49.0); Hemoglobin 13.0 g/dL (13.6-17.9); MCH 32.1 pg (27.0-35.0); MCHC 33.7 g/dL (32.0-36.0); MCV 95.4 fL (80-100); MPV 9.4 fL (7.6-11.3); Nucleated RBC Absolute Count 0.0 (0-0); Nucleated Red Blood Cells % 0.1 % (0-0); RBC Red Blood Cell Count 4.04 M/uL (4.33-5.43); White Blood Count 6.80 thou/uL (4.3-10.9)
[2025-01-13 03:20] LABS: ALT/SGPT 15 U/L (16-61); AST/SGOT < 10 U/L (15-37); Albumin 2.9 g/dL (3.4-5.0); Albumin/Globulin Ratio 0.7 (1.1-1.8); Alkaline Phosphatase 74 U/L (45-117); Anion Gap 7.0 mEq/L (5.0-15.0); BUN Blood Urea Nitrogen 16 mg/dL (7-18); Globulin 4.1 g/dL (2.3-3.5); Glucose Level 97 mg/dL (74-106); Potassium 4.0 mEq/L (3.5-5.1)
[2025-01-13] MEDS ORDERED: MORPHINE 4 MG/ML SYR ONE (03:45)
[2025-01-13] MEDS ORDERED: ONDANSETRON 4 MG/2 ML VIAL ONE (03:45)
--- NOTE | 2025-01-13 04:27 | ER ---
Nurse's Notes [facility] Name: Bryan Graf Age: 74 yrs Sex: Male : 1950 Arrival Date: 01/13/2025 Time: 02:27 Bed 16 Private MD: Diagnosis: Left knee pain, popliteal artery calcifications, peripheral vascular disease Presentation: 01/13 02:27 Chief complaint: Patient states: I have left knee pain that is radiating up to my groin bm8 for two days. 02:27 Coronavirus screen: At this time, the client does not indicate any symptoms associated bm8 with coronavirus-19. Ebola Screen: Patient negative for fever greater than or equal to 101.5 degrees Fahrenheit, and additional compatible Ebola Virus Disease symptoms Patient denies exposure to infectious person. Patient denies travel to an Ebola-affected area in the 21 days before illness onset. No symptoms or risks identified at this time. Initial Sepsis Screen: Does the patient meet any 2 criteria? No. Patient's initial sepsis screen is negative. Does the patient have a suspected source of infection? No. Patient's initial sepsis screen is negative. Risk Assessment: Do you want to hurt yourself or someone else? Patient reports no desire to harm self or others. Onset of symptoms was January 11, 2025 at 12:00. : Method Of Arrival: EMS: [facility] bm8 02:27 Acuity: GELACIO 3 bm8 Triage Assessment: 02:38 General: Appears distressed, uncomfortable, Behavior is calm, cooperative, appropriate bm8 for age. Pain: Complains of pain in left hamstring, posterior aspect of left knee and medial aspect of left thigh Pain currently is 9 out of 10 on a pain scale. EENT: No deficits noted. No signs and/or symptoms were reported regarding the EENT system. Neuro: No deficits noted. Level of Consciousness is awake, alert, obeys commands, Oriented to person, place, time, situation, Appropriate for age. Cardiovascular: Denies chest pain, Capillary refill < 3 seconds in bilateral fingers Patient's skin is warm and dry. Respiratory: Airway is patent Respiratory effort is even, unlabored, Respiratory pattern is regular, symmetrical. GI: No deficits noted. No signs and/or symptoms were reported involving the gastrointestinal system. : No deficits noted. No signs and/or symptoms were reported regarding the genitourinary system. Derm: No deficits noted. No signs and/or symptoms reported regarding the dermatologic system. Musculoskeletal: Capillary refill < 3 seconds, in bilateral fingers. toes. Range of motion: limited in left knee Reports pain in left leg Pain is 9 out of 10 on a pain scale. Historical: - Allergies: 02:38 Aspirin; bm8 02:38 PENICILLINS; bm8 - Home Meds: 02:38 divalproex 250 mg Oral tablet [Active]; gabapentin oral [Active]; Hydrochlorothiazide bm8 Oral [Active]; - PMHx: 02:38 Chronic pain; COPD; CVA; Hypertension; Migraine; Pneumonia; Seizures; swelling and pain bm8 to L lower leg; - PSHx: 02:38 back surgery; CABG (2016); heart surgery; Right hip surgery; Sternotomy; To remove bm8 malfunctioned sternotomy wires (July); - Immunization history:: Adult Immunizations not up to date. - Infectious Disease History:: Denies. - Social history:: Smoking status: Patient reports the use of cigarette tobacco products, smokes one pack cigarettes per day. Screenin:41 [facility] ED Fall Risk Assessment (Adult) History of falling in the last 3 months, bm8 including since admission No falls in past 3 months (0 pts) Confusion or Disorientation No (0 pts) Intoxicated or Sedated Impaired Gait Yes (1 pt) Mobility Assist Device Used Yes (1 pt) Altered Elimination No (0 pt) Score/Fall Risk Level 3 or more points = High Risk Oriented to surroundings, Maintained a safe environment, Educated pt \T\ family on fall prevention, incl call for assistance when getting out of bed, Assessed \T\ reinforced patient's understanding of fall precautions, Hourly rounding (assess needs \T\ fall precautionary measures) done, Used ambulatory aids as needed (educated on \T\ assisted with), Used gait belt as appropriate. Abuse screen: Denies threats or abuse. Nutritional screening: No deficits noted. Tuberculosis screening: No symptoms or risk factors identified. Assessment: :41 Reassessment: see triage assessment. bm8 03:33 Reassessment: Patient appears in no apparent distress at this time. Patient and/or bm8 family updated on plan of care and expected duration. Pain level reassessed. Patient is alert, oriented x 3, equal unlabored respirations, skin warm/dry/pink. pt is resting with eyes closed breathing is even unlabored with symmetrical rise and fall of chest. 04:42 Reassessment: Patient appears in no apparent distress at this time. Patient and/or bm8 family updated on plan of care and expected duration. Pain level reassessed. Patient is alert, oriented x 3, equal unlabored respirations, skin warm/dry/pink. Patient denies pain at this time. Patient states feeling better. Patient states symptoms have improved. Vital Signs: 02:27 BP 128 / 74; Pulse 78; Resp 17; Temp 98.1; Pulse Ox 98% on R/A; Weight 74.84 kg; Height bm8 5 ft. 7 in. ; Pain 9/10; 03:33 BP 133 / 74; Pulse 67; Resp 17; Temp 98.1; Pulse Ox 96% on R/A; bm8 04:42 BP 154 / 76; Pulse 64; Resp 17; Temp 98.4; Pulse Ox 97% ; Pain 0/10; bm8 02:27 Body Mass Index 25.84 (74.84 kg, 170.18 cm) bm8 02:27 Pain Scale: Adult bm8 04:42 Pain Scale: Adult bm8 [place] Coma Score: 02:41 Eye Response: spontaneous(4). Motor Response: obeys commands(6). Verbal Response: bm8 oriented(5). Total: 15. 03:33 Eye Response: spontaneous(4). Motor Response: obeys commands(6). Verbal Response: bm8 oriented(5). Total: 15. 04:42 Eye Response: spontaneous(4). Motor Response: obeys commands(6). Verbal Response: bm8 oriented(5). Total: 15. ED Course: 02:32 Patient arrived in ED. sp3 02:32 Faustino Griffin MD is Attending Physician. sp3 02:36 Lito Woo, RN is Primary Nurse. bm8 02:38 Triage completed. bm8 02:38 Arm band placed on left wrist. bm8 02:41 Patient has correct armband on for positive identification. Bed in low position. Call bm8 light in reach. Side rails up X 1. Client placed on continuous cardiac and pulse oximetry monitoring. NIBP monitoring applied. Pulse ox on. NIBP on. Door closed. Noise minimized. Warm blanket given. Pillow given. Verbal reassurance given. Head of bed elevated. 02:41 No provider procedures requiring assistance completed. Initial lab(s) drawn, by me, jelly sent to lab. Inserted saline lock: 18 gauge in left forearm, using aseptic technique. Blood collected. Flushed with 10 mL NS. 03:05 Knee Left 3 View XRAY In Process Unspecified. EDMS 04:33 US Extremity Venous Unilateral Ltd In Process Unspecified. EDMS 04:42 Provided Education on: post er care, follow up with vascular sx. bm8 04:42 IV discontinued, intact, bleeding controlled, No redness/swelling at site. Pressure bm8 dressing applied. Administered Medications: 03:48 Drug: morphine IVP or IV 4 mg IVP once over 4 mins Route: IVP; Infused Over: 4 mins; bm8 Site: left forearm; 04:42 Follow up: Response: No adverse reaction bm8 03:48 Drug: Ondansetron IVP 4 mg IVP once; over 2 minutes Route: IVP; Site: left forearm; bm8 04:42 Follow up: Response: No adverse reaction bm8 Medication: 02:41 VIS not applicable for this client. bm8 Outcome: 04:27 Discharge ordered by . sp3 04:42 Discharged to home ambulatory, taxi service called by this nurse. pt to pay for service bm8 04:42 Condition: stable 04:42 Discharge instructions given to patient, Instructed on discharge instructions, follow up and referral plans. no drinking with medication, no driving heavy equipment, medication usage, benefits of quitting smoking, safety practices, Demonstrated understanding of instructions, follow-up care, medications, Prescriptions given X 1, 04:44 Patient left the ED. bm8 Signatures: Dispatcher [employer] Faustino Lowe MD MD sp3 Lito Woo, RN RN bm8
--- NOTE | 2025-01-13 04:28 | EDPHYS ---
Physician Documentation [facility] Name: Bryan Graf Age: 74 yrs Sex: Male : 1950 Arrival Date: 01/13/2025 Time: 02:27 Bed 16 Private MD: ED Physician Faustino Griffin HPI: 01/13 02:35 This 74 yrs old Male presents to ER via Unassigned with complaints of left lower sp3 extremity pain. 02:35 72-year-old male with history of seizure disorder, prior CVA, COPD, hypertension, sp3 chronic pain now presents to the ED with chief complaint of left lower extremity pain from the knee up to his thigh/groin for approximately 10 days worsening this evening. Patient denies any fever, swelling, prior DVT or PE, trauma, or any other signs or symptoms on ROS at this time.. Historical: - Allergies: 02:38 Aspirin; bm8 02:38 PENICILLINS; bm8 - Home Meds: 02:38 divalproex 250 mg Oral tablet [Active]; gabapentin oral [Active]; Hydrochlorothiazide bm8 Oral [Active]; - PMHx: 02:38 Chronic pain; COPD; CVA; Hypertension; Migraine; Pneumonia; Seizures; swelling and pain bm8 to L lower leg; - PSHx: 02:38 back surgery; CABG (2016); heart surgery; Right hip surgery; Sternotomy; To remove bm8 malfunctioned sternotomy wires (July); - Immunization history:: Adult Immunizations not up to date. - Infectious Disease History:: Denies. - Social history:: Smoking status: Patient reports the use of cigarette tobacco products, smokes one pack cigarettes per day. ROS: 02:36 Constitutional: Negative for fever, chills, and weight loss, Eyes: Negative for injury, sp3 pain, redness, and discharge, Neck: Negative for injury, pain, and swelling, Cardiovascular: Negative for chest pain, palpitations, and edema, Abdomen/GI: Negative for abdominal pain, nausea, vomiting, diarrhea, and constipation, Back: Negative for injury and pain, Skin: Negative for injury, rash, and discoloration, Neuro: Negative for headache, weakness, numbness, tingling, and seizure, Psych: Negative for depression, anxiety, suicide ideation, homicidal ideation, and hallucinations, Allergy/Immunology: Negative for hives, rash, and allergies, Endocrine: Negative for neck swelling, polydipsia, polyuria, polyphagia, and marked weight changes, 02:36 All other systems are negative, Exam: 02:36 Constitutional: This is a well developed, well nourished patient who is awake, alert, sp3 and in no acute distress. Head/Face: Normocephalic, atraumatic. Neck: Trachea midline, no thyromegaly or masses palpated, and no cervical lymphadenopathy. Supple, full range of motion without nuchal rigidity, or vertebral point tenderness. No Meningismus. Chest/axilla: Normal chest wall appearance and motion. Nontender with no deformity. No lesions are appreciated. Cardiovascular: Regular rate and rhythm with a normal S1 and S2. No gallops, murmurs, or rubs. Normal PMI, no JVD. No pulse deficits. Respiratory: Lungs have equal breath sounds bilaterally, clear to auscultation and percussion. No rales, rhonchi or wheezes noted. No increased work of breathing, no retractions or nasal flaring. Abdomen/GI: Soft, non-tender, with normal bowel sounds. No distension or tympany. No guarding or rebound. No evidence of tenderness throughout. Back: No spinal tenderness. No costovertebral tenderness. Full range of motion. Skin: Warm, dry with normal turgor. Normal color with no rashes, no lesions, and no evidence of cellulitis. Neuro: Awake and alert, GCS 15, oriented to person, place, time, and situation. Cranial nerves II-XII grossly intact. Motor strength 5/5 in all extremities. Sensory grossly intact. Cerebellar exam normal. Normal gait. 02:36 Musculoskeletal/extremity: No swelling noted. Patient has pain to palpation of the musculature between the knee and the groin. Distal neurovascular exam is normal. No pedal edema.. Vital Signs: 02:27 BP 128 / 74; Pulse 78; Resp 17; Temp 98.1; Pulse Ox 98% on R/A; Weight 74.84 kg; Height bm8 5 ft. 7 in. ; Pain 9/10; 03:33 BP 133 / 74; Pulse 67; Resp 17; Temp 98.1; Pulse Ox 96% on R/A; bm8 04:42 BP 154 / 76; Pulse 64; Resp 17; Temp 98.4; Pulse Ox 97% ; Pain 0/10; bm8 02:27 Body Mass Index 25.84 (74.84 kg, 170.18 cm) bm8 02:27 Pain Scale: Adult bm8 04:42 Pain Scale: Adult bm8 Natalie Coma Score: 02:41 Eye Response: spontaneous(4). Motor Response: obeys commands(6). Verbal Response: bm8 oriented(5). Total: 15. 03:33 Eye Response: spontaneous(4). Motor Response: obeys commands(6). Verbal Response: bm8 oriented(5). Total: 15. 04:42 Eye Response: spontaneous(4). Motor Response: obeys commands(6). Verbal Response: bm8 oriented(5). Total: 15. MDM: 02:32 Medical Screening Exam initiated sp3 02:36 Data reviewed: vital signs, nurses notes, radiologic studies. ED course: 74-year-old sp3 male with PMH above now with left lower extremity pain. Differential diagnosis includes muscle strain, DVT, arthritis, chronic pain, among others. Workup will include general labs, x-ray of the knee and ultrasound left lower extremity venous. Arterial side not indicated. If workup negative we will safely discharge patient home.. 04:26 ED course: X-ray demonstrates no abnormality. Ultrasound demonstrates no DVT and good sp3 arterial flow however patient does have extensive popliteal artery calcifications likely contributing to his symptoms. Will discharge patient to follow-up with PCP regarding outpatient vascular surgery consultation.. 01/13 02:34 Order name: CBC with Diff; Complete Time: 04:03 sp3 01/13 02:34 Order name: CMP; Complete Time: 04:03 sp3 01/13 02:34 Order name: Knee Left 3 View XRAY sp3 01/13 02:34 Order name: US Extremity Venous Unilateral Ltd sp3 01/13 02:34 Order name: IV Saline Lock; Complete Time: 02:57 sp3 01/13 02:34 Order name: Labs collected and sent; Complete Time: 02:57 sp3 Administered Medications: 03:48 Drug: morphine IVP or IV 4 mg IVP once over 4 mins Route: IVP; Infused Over: 4 mins; bm8 Site: left forearm; 04:42 Follow up: Response: No adverse reaction bm8 03:48 Drug: Ondansetron IVP 4 mg IVP once; over 2 minutes Route: IVP; Site: left forearm; bm8 04:42 Follow up: Response: No adverse reaction bm8 Disposition Summary: 01/13/25 04:27 Discharge Ordered Notes: Location: Home sp3 Condition: Stable sp3 Diagnosis - Left knee pain, popliteal artery calcifications, peripheral vascular disease sp3 Followup: sp3 - With: Private Physician - When: Upon discharge from the Emergency Department - Reason: Continuance of care Discharge Instructions: - Discharge Summary Sheet sp3 - Peripheral Vascular Disease sp3 Forms: - Medication Reconciliation Form sp3 - Antibiotic Education sp3 - Prescription Opioid Use sp3 - Patient Portal Instructions sp3 - Leadership Thank You Letter sp3 Prescriptions: - Tramadol 50 mg Oral Tablet - take 1 tablet ORAL route every 8 hours as needed; 12 tablet; Refills: 0, sp3 Product Selection Permitted Signatures: Dispatcher [employer] EDFaustino Montemayor MD MD sp3 Lito Woo RN RN bm8 Corrections: (The following items were deleted from the chart) 02:35 02:35 CBC+H.LAB.BRZ ordered. EDMS EDMS 02:35 02:35 COMPREHENSIVE METABOLIC PANEL+C.LAB.BRZ ordered. EDMS EDMS
[2025-01-13 04:52] VITALS: BP 154/76; TEMP 98.4; O2SAT 97
--- NOTE | 2025-01-13 05:34 | RAD REPORT ---
Procedure description: XR KNEE 3 VIEWS LEFT HISTORY: knee pain COMPARISON: None Findings: Left knee: 3 views Prominent vascular calcification no significant arthritic changes are demonstrated. No fracture or ma lalignment. No abnormal joint effusion. Impression: Prominent vascular calcification. Normal appearance of the knee joint. Electronically signed by: Gene Miranda MD 01/13/2025 04:32 AM CDT RP Due to temporary technical issues with the PACS/[employer] reporting system, reports are being cari d by the in-house radiologist without review as a courtesy to ensure prompt reporting the interpreting radiologist is fully responsible for the content of the report. Transcribed Date/Time: 01/13/2025 5:34 AM
--- NOTE | 2025-01-13 06:44 | RAD REPORT ---
EXAM: Extremity Venous Uni Ltd US Left Lower Extremity Venous Duplex Doppler HISTORY: Pain. COMPARISON: US left leg vein 12/12/2022 TECHNIQUE: Grayscale, color Doppler, duplex Doppler, spectral Doppler images and analysis with compre ssion and augmentation of left lower extremity veins. FINDINGS: Left common femoral, greater saphenous, femoral, deep (profunda) femoral, popliteal, posterior tibial veins unremarkable without evidence of clot. IMPRESSION: No sonographic evidence of left lower extremity DVT. Electronically signed by: Ravinder Sanchez MD 01/13/2025 05:17 AM CDT RP Due to temporary technical issues with the [email or web address] reporting system, reports are being cari d by the in-house radiologist without review as a courtesy to ensure prompt reporting the interpreting radiologist is fully responsible for the content of the report. Transcribed Date/Time: 01/13/2025 6:44 AM
== END 2025-01-13 04:44 | disposition home or self-care (01) ==
LOC: ER 02:27
DX: M25.562 Pain in left knee (principal); I73.9 Peripheral vascular disease, unspecified; I70.8 Atherosclerosis of other arteries; I10 Essential (primary) hypertension; J44.9 Chronic obstructive pulmonary disease, unspecified; F17.210 Nicotine dependence, cigarettes, uncomplicated; Z86.73 Personal history of transient ischemic attack (TIA), and cerebral infarction without residual deficits; Z88.0 Allergy status to penicillin; Z88.6 Allergy status to analgesic agent
CPT/HCPCS: 85025; 36415; 80053; 73562; 93971; 96375; 96374; 99284; J2405